=== PATIENT | female | born 1955 | race Caucasian/White ===

== ENCOUNTER 2017-04-21 05:22 | Emergency (ER) | payer MEDICARE, SELFPAY ==
[2017-04-21 05:26] VITALS: BP 152/65; PULSE 80; RESP 20; TEMP 36.6; O2SAT 98; BMI 41.6
--- NOTE | 2017-04-21 05:32 | RAD_ITS ---
STUDY: X-RAY CHEST REASON FOR EXAM: Female, 61 years old. Status post fall one week ago. Pain down left arm. Rib pain. TECHNIQUE: Frontal and lateral views of the chest. COMPARISON: 01/25/2017. FINDINGS: The lungs are clear and expanded. There is no demonstrated pleural abnormality. Normal size heart. Normal mediastinum and alvina. Normal visualized pulmonary arteries. Normal visualized aortic arch and descending thoracic aorta. Normal visualized thoracic spine. Normal visualized ribs, clavicles, and shoulders. There is no demonstrated abnormality of the visualized soft tissue structures of the upper abdomen. RAD/Chest PA and Lateral IMPRESSION: Normal x-ray examination of the chest. Electronically Signed: Gaurav Gutierrez MD at 6:56 EST , Service support ,
--- NOTE | 2017-04-21 05:32 | ED.VISSUMM ---
- ER Visit Summary Date of Service: 04/21/17 Chief Complaint: [] Fall with injury to left rib cage History of Present Illness: The patient is a 61 F patient had a fall a week ago and she slipped and injured her left upper ribs. No significant pain in her shoulder joint itself. It hurts to move and take a deep breath. She has been using Tylenol intermittently but has a history of a liver transplant. She comes in for further evaluation of her ribs. No shortness of breath currently. Physical Examination: [] Vital signs reviewed General: Well-nourished well-developed Head: Normocephalic atraumatic Eyes: Pupils equal round and reactive to light extraocular movements intact ENT: TMs clear no hemotympanum no trauma Neck: Nontender full range of motion Cardiovascular: Regular rate rhythm no murmurs normal S1-S2 Respiratory: No distress clear to auscultation bilaterally chest tender left anterior rib cage without swelling or deformity. No bony step-off. This is just under the breast region. Abdomen: Soft nontender nondistended normal bowel sounds no masses Back: Nontender no CVA tenderness Extremities: Nontender active range of motion ?4 extremities no trauma Skin: Normal color no trauma Neuro alert oriented cranial nerves II through XII intact normal strength sensation reflexes Test Results: [] Emergency Department Course and Treatment: [] Patient given [place] tablet. Chest x-ray obtained to rule out pneumothorax and fracture. Evidence of pneumothorax and fracture noted. This time I think the patient bruised her ribs. She will be given a short course of pain medicine and will follow-up as an outpatient. Treatment Plan: [] Disposition: [] Impression: [] Left-sided rib contusions status post fall This note was generated with [employer]String dictation software. It may contain incorrect words, spelling, and punctuation that were not noted in review of the chart prior to signing ED Disposition - Plan for ED Patient: Chief Complaint: Other, Pain/Inj Referrals: Velia Archuleta MD [Primary Care Provider] -
--- NOTE | 2017-04-21 05:35 | ED.DCSUM_ITS ---
- ER Visit Summary Date of Service: 04/21/17 Chief Complaint: [] Fall with injury to left rib cage History of Present Illness: The patient is a 61 F patient had a fall a week ago and she slipped and injured her left upper ribs. No significant pain in her shoulder joint itself. It hurts to move and take a deep breath. She has been using Tylenol intermittently but has a history of a liver transplant. She comes in for further evaluation of her ribs. No shortness of breath currently. Physical Examination: [] Vital signs reviewed General: Well-nourished well-developed Head: Normocephalic atraumatic Eyes: Pupils equal round and reactive to light extraocular movements intact ENT: TMs clear no hemotympanum no trauma Neck: Nontender full range of motion Cardiovascular: Regular rate rhythm no murmurs normal S1-S2 Respiratory: No distress clear to auscultation bilaterally chest tender left anterior rib cage without swelling or deformity. No bony step-off. This is just under the breast region. Abdomen: Soft nontender nondistended normal bowel sounds no masses Back: Nontender no CVA tenderness Extremities: Nontender active range of motion ?4 extremities no trauma Skin: Normal color no trauma Neuro alert oriented cranial nerves II through XII intact normal strength sensation reflexes Test Results: [] Emergency Department Course and Treatment: [] Patient given [place] tablet. Chest x-ray obtained to rule out pneumothorax and fracture. Evidence of pneumothorax and fracture noted. This time I think the patient bruised her ribs. She will be given a short course of pain medicine and will follow-up as an outpatient. Treatment Plan: [] Disposition: [] Impression: [] Left-sided rib contusions status post fall This note was generated with [employer] dictation software. It may contain incorrect words, spelling, and punctuation that were not noted in review of the chart prior to signing ED Disposition - Plan for ED Patient: Chief Complaint: Other, Pain/Inj Referrals: Velia Archuleta MD [Primary Care Provider] -
[2017-04-21] MEDS: HYDROcodone Bitartrate/Apap 5/325 Tablet PO (05:38)
--- NOTE | 2017-04-21 06:00 | ED.DEP ---
ED Disposition - Plan for ED Patient: Disposition: Home or Assisted Living Chief Complaint: Other, Pain/Inj Instructions: ED Contusion Rib Prescriptions: Hydrocodone Bitart/Apap 5-325 [[place] 5/325] 1 - 2 tab PO Q4H PRN PRN 2 Days #12 tab PRN Reason: Pain Referrals: Velia Archuleta MD [Primary Care Provider] -
--- NOTE | 2017-04-21 06:04 | DCINST.ED_ITS ---
ED Disposition - Plan for ED Patient: Disposition: Home or Assisted Living Chief Complaint: Other, Pain/Inj Instructions: ED Contusion Rib Prescriptions: Hydrocodone Bitart/Apap 5-325 [[place] 5/325] 1 - 2 tab PO Q4H PRN PRN 2 Days #12 tab PRN Reason: Pain Referrals: Velia Archuleta MD [Primary Care Provider] -
[2017-04-21 06:41] VITALS: RESP 18
== END 2017-04-21 06:42 | disposition home or self-care (01) ==
PROVIDERS: Emergency Provider Emergency Medicine; Family Provider Internal Medicine; PCP Internal Medicine
DX: S20.212A Contusion of left front wall of thorax, initial encounter (principal); W01.0XXA Fall on same level from slipping, tripping and stumbling without subsequent striking against object, initial encounter; Y93.9 Activity, unspecified; Y92.9 Unspecified place or not applicable; Y99.9 Unspecified external cause status; K75.81 Nonalcoholic steatohepatitis (NASH); E11.22 Type 2 diabetes mellitus with diabetic chronic kidney disease; N18.9 Chronic kidney disease, unspecified; I50.9 Heart failure, unspecified; D64.9 Anemia, unspecified; E66.9 Obesity, unspecified; Z79.4 Long term (current) use of insulin; Z79.899 Other long term (current) drug therapy; Z94.4 Liver transplant status
CPT/HCPCS: 71046; 99283

== ENCOUNTER → 2017-09-13 08:20 | Outpatient (CLI) | payer MEDICARE, SELFPAY ==
--- NOTE | 2017-09-13 08:22 | RAD_ITS ---
STUDY: X-RAY - ESOPHAGUS (BARIUM SWALLOW) WITH FLUOROSCOPY REASON FOR EXAM: Female, 62 years old. Dysphagia for fluid and pills. TECHNIQUE: 15 view(s) of the esophagus were obtained following swallowing of barium. FLUOROSCOPY TIME (if supplied): (0:18) minutes/seconds COMPARISON: None. FINDINGS: There is no demonstrated esophageal foreign body. There is no demonstrated stricture or mucosal abnormality. Normal gastroesophageal junction, without a demonstrated hiatal hernia. The patient ingested a 12 mm tablet of barium without any difficulty. Normal visualized aortic arch and descending thoracic aorta. Normal visualized pulmonary parenchyma. Normal visualized osseous structures of the thorax. RAD/Esophagus Only IMPRESSION: Normal plain film x-ray examination (barium swallow) of the esophagus. Electronically Signed: Naren Boston MD at 9:40 EDT Tel [phone], Service support ,
== END ==
PROVIDERS: Family Provider Internal Medicine; PCP Internal Medicine; Visit Provider Internal Medicine Gastroenterology
DX: R13.10 Dysphagia, unspecified (principal)
CPT/HCPCS: 74220

== ENCOUNTER 2018-01-15 19:39 | Emergency (ER) | payer MEDICARE, SELFPAY ==
[2018-01-15 19:40] VITALS: BP 163/69; PULSE 72; RESP 16; TEMP 36.1; BMI 41.6
[2018-01-15] MEDS: Morphine 4 MG/ML Syringe 8 MG SC (20:07)
--- NOTE | 2018-01-15 20:10 | RAD_ITS ---
STUDY: X-RAY - LUMBAR SPINE REASON FOR EXAM: Female, 62 years old. Pain TECHNIQUE: 3 view(s) of the lumbar spine were obtained. COMPARISON: None FINDINGS: Normal lumbar lordosis. There is a mild levoscoliosis. There is a normal alignment of the vertebrae. Normal vertebral bodies. Mild spurring at the endplates. Slightly narrowed L3-4 disc space. The soft tissue structures are unremarkable. There are surgical clips in the upper abdomen and pelvis. RAD/Lumbar Spine 2 or 3 Views IMPRESSION: Mild degenerative changes and levoscoliosis of the lumbar spine. Electronically Signed: Glen Cantu DO at 20:38 EST Tel [phone], Service support ,
--- NOTE | 2018-01-15 21:13 | ED.VISSUMM ---
- ER Visit Summary Date of Service: 01/15/18 Chief Complaint: Back pain History of Present Illness: The patient is a 62 F presenting for evaluation secondary to back pain. Patient reports that at about 630 tonight she had an onset of back pain. She reports that this is in her left lower back and seems to radiate down her leg to the level of about the thigh and the knee. She denies any numbness or weakness associated with this. Patient states that it is worse with movement she has been unable to get any sort of comfort by changing positions. Patient feels that she has a knot in the muscles in her back. 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 Patient does have a history of a liver transplant, and states that the medication she can take for pain are somewhat limited. Physical Examination: Vitals: Within normal limits General: Well-nourished well-developed no acute distress Head: Normocephalic atraumatic ENT: Moist mucous membranes Neck: Supple no JVD Cardiovascular: Heart regular rate and rhythm no murmurs Respiratory: Respirations nondistressed, lung sounds clear to auscultation bilaterally Abdominal: Soft, nontender, nondistended, normal bowel sounds, no evidence of abdominal masses or pulsatile mass Back: Normal to inspection, no midline tenderness to palpation, straight leg raise negative bilaterally, left paraspinal tenderness to palpation Extremities: Nontender, nonedematous, 2+ radial and PT pulses bilaterally symmetric Skin: Normal color no rash Neuro: 5/5 strength hip flexion, knee flexion, knee extension, dorsiflexion, plantarflexion, EHL. Sensation intact over all dermatomes of the lower extremities bilaterally, 2+ patellar and Achilles reflexes bilaterally symmetric, negative clonus bilaterally Test Results: Lumbar x-ray found to be negative for acute process but shows degenerative disease Emergency Department Course and Treatment: Patient presented secondary to back pain. She had had any recent imaging, so an x-ray was obtained was negative. I reviewed patient's records, she has no history of abdominal aortic aneurysm I do not believe that CT imaging is indicated. Patient was given a dose of morphine in the emergency department she did have improvement. Patient has multiple medication sensitivities secondary to her liver transplants, so will place the patient on a course of oxycodone for treatment of pain. She was recommended on stretching exercises ambulation and follow-up with primary care. Disposition: Discharge Impression: 1. Lumbar radiculopathy This note was generated with [employer] dictation software. It may contain incorrect words, spelling, and punctuation that were not noted in review of the chart prior to signing ED Disposition - Plan for ED Patient: Disposition: Home or Assisted Living Chief Complaint: Back Diagnosis: Lumbar radiculopathy, acute Instructions: ED Sciatica Prescriptions: Oxycodone [Oxyir] 5 mg PO Q6H PRN PRN 3 Days #12 tab PRN Reason: Pain Referrals: Velia Archuleta MD [Primary Care Provider] - 3-5 Days
[2018-01-15] MEDS: oxyCODONE 5 MG Tablet PO (21:48)
[2018-01-15 21:50] VITALS: BP 166/71; PULSE 71; RESP 16; O2SAT 95
== END 2018-01-15 21:51 | disposition home or self-care (01) ==
PROVIDERS: Emergency Provider Emergency Medicine; Family Provider Internal Medicine; PCP Internal Medicine
DX: M54.17 Radiculopathy, lumbosacral region (principal); K90.0 Celiac disease; R15.9 Full incontinence of feces; E66.9 Obesity, unspecified; Z79.899 Other long term (current) drug therapy; Z94.4 Liver transplant status
CPT/HCPCS: 72100; 96372; 99283

== ENCOUNTER 2018-05-29 08:45 | Emergency (ER) | payer MEDICARE, SELFPAY ==
[2018-05-29 08:46] VITALS: BP 141/67; PULSE 68; RESP 14; TEMP 36.1; O2SAT 97; BMI 42.7
--- NOTE | 2018-05-29 09:14 | ED.VISSUMM ---
- ER Visit Summary Date of Service: 05/29/18 Chief Complaint: Shingles History of Present Illness: The patient is a 62 F with history of liver transplant, splenectomy, and chronic immunosuppression. Patient noted a painful area of redness over her buttocks bilaterally 2 days ago. She was seen in urgent care yesterday and they thought it might be shingles. She was given a topical steroid cream and told it worsen to go the emergency room. The patient states the redness is now moved up her back and remains bilaterally. There are no blisters or open lesions. Her temperature last night was 99.9. Physical Examination: Blood pressure is 141/67, temperature 96.9 TA, 98.2 oral. Heart rate is 68, respiratory rate 14, pulse ox 97% on room air. Head neck examination is unremarkable. Heart is regular rate and rhythm without murmur. Lung sounds are clear. Abdomen is soft and nontender. Back examination was erythema and warmth over the bilateral flanks. There are no blisters or open lesions. Test Results: CBC is normal. Hemoglobin is 9.3 and platelet count is 112,000. Chemistry studies reveal BUN 57 and a creatinine 2.39. This appears consistent with prior values. Blood cultures were obtained. Emergency Department Course and Treatment: Patient was given dose of vancomycin IV. On repeat evaluation patient is resting comfortably. Erythema has not spread any further. I will speak with the patient's primary care physician to notify them of the current presentation. Patient has an appointment in the office tomorrow afternoon. Patient be discharged with doxycycline. Treatment Plan: [] Disposition: Discharge Impression: Cellulitis with history of immunosuppression This note was generated with [employer] dictation software. It may contain incorrect words, spelling, and punctuation that were not noted in review of the chart prior to signing ED Disposition - Plan for ED Patient: Referrals: Velia Archuleta MD [Primary Care Provider] -
[2018-05-29 09:38] LABS: Absolute Lymphocyte Count 0.48 X10^3/ul (0.83-4.51); Absolute Neutrophil Count 3.5 X10^3/uL (2.0-7.7); Basophil# 0.01 X10^3/uL; Basophil% 0.2 % (0-1); Eosinophils% 2.2 % (0-5); Hemoglobin 9.3 g/dl (12.0-15.0); Lymphocyte # 0.48 X10^3/ul (4.0); Lymphocyte % 10.7 % (19-41); Mean Corpuscular Hgb 24.5 pg (27.0-32.0); Mean Corpuscular Volume 81.8 fL (81-99); Mean Platelet Vol. 9.9 fl (6.2-12.0); Monocyte# 0.38 X10^3/uL; Monocyte% 8.5 % (0-10); Neutrophil # 3.47 X10^3/uL (2.7-7.7); Neutrophil % 77.7 % (47-70); Platelet Count 112 K/mm3 (150-450); RBC Distribution Width CV 17.5 % (11.6-14.6); RBC Distribution Width SD 50.9 fl (35.1-43.9); Red Blood Count 3.79 M/mm3 (4.2-5.4); White Blood Count 4.5 K/mm3 (4.4-11.0)
[2018-05-29 09:39] LABS: Differential Indicated SCAN CRITERIA MET; POSITIVE COUNT NO; POSITIVE DIFFERENTIAL YES; POSITIVE MORPHOLOGY NO
[2018-05-29 09:47] LABS: Anion Gap 6 (5-15); BUN 57 mg/dL (7-18); BUN/Creat Ratio 23.8 RATIO (10-20); Calcium,Total 8.2 mg/dL (8.5-10.1); Chloride 106 mmol/L (98-107); Creatinine, Serum 2.39 mg/dL (0.55-1.02); EST Glomerular Filtration Rate 22 mL/min (>60); Est Glom Filt Rate - Afr Amer 27 mL/min (>60); Estimated Creatinine Clearance 22.52 ml/min; Glucose 94 mg/dL (74-106); Potassium 4.3 mmol/L (3.5-5.1); Sodium Level 135 mmol/L (136-145)
[2018-05-29] MEDS: 0.9% Normal Saline 1,000 ML 150 ML IV (09:51)
[2018-05-29] MEDS: Insulin Lispro 100 UNIT/ML INSULN.PEN SC (10:59)
--- NOTE | 2018-05-29 11:50 | ED.DEP ---
ED Disposition - Plan for ED Patient: Disposition: Home or Assisted Living Instructions: ED Infec Skin Cellulitis Prescriptions: Doxycycline 100 mg PO BID #20 capsule Referrals: Velia Archuleta MD [Primary Care Provider] - Keep Patricia appointment
[2018-05-29 12:27] VITALS: BP 132/68; PULSE 74; RESP 18; O2SAT 94
[2018-05-29 12:28] VITALS: BP 132/68; PULSE 74; RESP 18; O2SAT 94
== END 2018-05-29 12:29 | disposition home or self-care (01) ==
PROVIDERS: Emergency Provider Emergency Medicine; Family Provider Internal Medicine; PCP Internal Medicine
DX: L03.312 Cellulitis of back [any part except buttock and flank] (principal); I13.0 Hypertensive heart and chronic kidney disease with heart failure and stage 1 through stage 4 chronic kidney disease, or unspecified chronic kidney disease; E11.22 Type 2 diabetes mellitus with diabetic chronic kidney disease; N18.9 Chronic kidney disease, unspecified; I50.9 Heart failure, unspecified; G47.33 Obstructive sleep apnea (adult) (pediatric); K21.9 Gastro-esophageal reflux disease without esophagitis; F32.9 Major depressive disorder, single episode, unspecified; F41.9 Anxiety disorder, unspecified; Z79.4 Long term (current) use of insulin; Z79.899 Other long term (current) drug therapy; Z94.4 Liver transplant status; Z90.81 Acquired absence of spleen
CPT/HCPCS: 80048; 85025; 87040; 96365; 96366; 99283; J7040

== ENCOUNTER 2018-06-27 09:16 | Emergency (ER) | payer MEDICARE, SELFPAY ==
[2018-06-27 09:18] VITALS: BP 147/69; PULSE 81; RESP 16; TEMP 36.3; O2SAT 95; BMI 43.5
--- NOTE | 2018-06-27 10:03 | ED.VIS.GEN ---
History of Present Illness Chief Complaint: Abd Pain Detail of Chief Complaint: Abdominal pain, nausea and vomiting Onset: Yesterday Context: Sudden Onset Timing: Intermittent Quality: 1 emesis yesterday and 1 episode today Location: Not pertinent Current Severity: Mild Maximum Severity: Moderate Worsened by: P.o. intake Relieved by: Nothing Associated Symptoms: Generalized abdominal pain with bloating Narrative: Patient is an elderly woman status post liver recipient 2008 who presents from urgent care because of nausea and vomiting. She was diagnosed with cellulitis lower back and treated with doxycycline. Patient reports one episode of nausea and vomiting yesterday and episode of vomiting today. She reports continuous nausea. She states she is able to take her medications including her immunosuppressive meds. She denies headache, visual, ocular auditory symptoms. She denies cardiac or respiratory symptoms. She does report abdominal fullness/bloating with nausea. She is status post cholecystectomy, hysterectomy and appendectomy. She denies dysuria, frequency, urgency or hematuria. She does report decreased urine output and has stage III renal disease. Prior similar symptoms: No Recent Illness/Hospitalization: Yes - Past Medical History (1) Acute kidney injury superimposed on chronic kidney disease Status: Acute (2) Cellulitis Status: Acute (3) Diastolic CHF, acute Status: Acute (4) Immunosuppressive-induced white blood cell (WBC) disorder Status: Acute (5) Anemia in chronic kidney disease Status: Chronic (6) Bilateral leg edema Status: Chronic (7) CKD (chronic kidney disease), stage III Status: Chronic (8) Diabetes mellitus type 2 in obese Status: Chronic (9) History of liver transplant Status: Chronic Past Medical History - Allergies and Home Meds Allergies/Adverse Reactions: Allergies amlodipine [From Norvasc] Adverse Reaction (Severe, Verified 06/27/18 09:17) Hives ampicillin sodium [From Unasyn] Adverse Reaction (Severe, Verified 06/27/18 09:17) Hives buspirone HCl [From BuSpar] Adverse Reaction (Severe, Verified 06/27/18 09:17) Hives lisinopril Adverse Reaction (Severe, Verified 06/27/18 09:17) Swelling naproxen Adverse Reaction (Severe, Verified 06/27/18 09:17) Hives niacin [From Niaspan Extended-Release] Adverse Reaction (Severe, Verified 06/27/18 09:17) Hives omeprazole Adverse Reaction (Severe, Verified 06/27/18 09:17) Other stage 3 kidney failure UNABLE TO TAKE DUE TO TRANSPLALNT sulbactam sodium [From Unasyn] Adverse Reaction (Severe, Verified 06/27/18 09:17) Hives Sulfa (Sulfonamide Antibiotics) Adverse Reaction (Severe, Verified 06/27/18 09:17) Hives DURACEF Adverse Reaction (Severe, Uncoded 06/27/18 09:17) Hives Primary Care Physician: Velia Archuleta MD [Primary Care Provider] - Prior records reviewed: Yes Surgical History: appendectomy, cholecystectomy, hysterectomy, - - Liver transplant, splenectomy, hysterectomy, left knee surgery, removal of left ovary, total mouth extraction Lives: Spouse/ Significant Other Smoking Status: Never smoker Alcohol: None Drugs: None - Family History Maternal Family History: Family History (Last Reviewed 11/19/17 @ 13:38 by Roxie Read) Mother Diabetes Anemia Father Hypertension LUNG/RESPIRATORY DISEASE Family History: Reports: Diabetes, Heart Disease Paternal Family History: Family History (Last Reviewed 11/19/17 @ 13:38 by Roxie Read) Mother Diabetes Anemia Father Hypertension LUNG/RESPIRATORY DISEASE Family History: Reports: Cancer, Heart Disease Sibling Family History: Family History (Last Reviewed 11/19/17 @ 13:38 by Roxie Read) Mother Diabetes Anemia Father Hypertension LUNG/RESPIRATORY DISEASE Family History: Reports: - - Cirrhosis Review of Systems General: Reports: Malaise. Denies: Chills, Fever, Subjective, Sweats, Weight loss, - Eyes: Denies: Visual changes - bilaterally, Blurred Vision - bilaterally, Diplopia ENT: Denies: Bilateral ear pain, Rhinorrhea, Sore throat Cardiovascular: Denies: Chest pain, Palpitations, Heart racing Respiratory: Denies: Dyspnea, Cough, Dyspnea on exertion, Orthopnea, Paroxysmal nocturnal dyspnea Gastrointestinal: Reports: Abdominal pain, Nausea, Vomiting. Denies: Diarrhea, Constipation, Melena, Hematochezia Genitourinary: Reports: - - Patient reports decreased urine output.. Denies: Dysuria, Hematuria, Frequency Musculoskeletal: Reports: Back pain - History of chronic back pain. Denies: Myalgias, Arthralgias, Neck pain Skin: Reports: Rash - Cellulitis lower back Neurological: Reports: Weakness. Denies: Headache, Parasthesia Endocrine: Denies: Polyuria, Polydipsia Hematologic: Denies: Easy bruising, Easy bleeding Physical Exam Vital Signs/Narrative: Vital Signs Temp Pulse Resp BP Pulse Ox 06/27/18 09:18 97.4 F L 81 16 147/69 H 95 Inital Vital Signs reviewed: Yes General: Well nourished, Well developed, Obese, No Acute Distress Head: Normocephalic, Atraumatic Eyes: Perrl, EOMI, Pale conjunctiva. Negative for: Scleral icterus ENT: No rhinorrhea, TM's clear, Dry mucous membranes. Negative for: Nasal congestion Neck: Supple, Nontender, No lymphadenopathy, No JVD Cardiovascular: Regular rate, Regular rhythm, No murmurs, Normal S1, Normal S2 Respiratory: No distress, CTA bilaterally, Chest nontender Abdomen: Soft, No masses, Tender, Hypoactive bowel sounds, - - Abdomen is tympanitic to percussion.. Negative for: Nontender, Nondistended, Normal bowel sounds, Guarding, Rebound tenderness, Hyperactive bowel sounds, Hepatomegaly, Splenomegaly, Mass, Pulsatile mass, Ventral hernia, Umbilical hernia Back: Nontender. Negative for: Normal Inspection, CVA tenderness - Area of cellulitis noted and minimal redness at this time. Extremities: Nontender, Edema Skin: Pallor, Rash. Negative for: Jaundice Neurological: Alert, Oriented x3, Cranial nerves II-XII grossly intact, Normal Strength, Normal Sensation Psychological: Normal affect, Normal Mood Diagnostic/Tx/Re-eval Chest X-Ray - ED: Read by ED Physician Three-view x-ray of the abdomen was obtained. Minimal amounts of gas pattern noted. Multiple surgical clips noted. There is evidence of scoliosis. No evidence of obstruction or ileus. Chest portion appears unremarkable. 06/27/18 10:20 XRAY Abdomen [Acute Abdomen Inc Chest] [RAD] Stat Laboratory Results 06/27/18 06/27/18 09:50 09:50 WBC 3.3 L RBC 3.73 L Hgb 8.9 L Hct 29.3 L MCV 78.6 L MCH 23.9 L MCHC 30.4 L RDW 18.0 H RDW Differential 51.7 H Plt Count 79 L MPV 9.8 Immature Gran % (Auto) 0.300 Neut % (Auto) 78.6 H Lymph % (Auto) 13.8 L Mcintosh % (Auto) 4.9 Eos % (Auto) 2.4 Baso % (Auto) 0.0 Absolute Neuts (auto) 2.6 Absolute Lymphs (auto) 0.45 L Total Counted Not Reportable Differential Comment COMMENT Diff Path Review May foll Sodium 137 Potassium 4.6 Chloride 105 Carbon Dioxide 25.0 Anion Gap 7 BUN 53 H Creatinine 2.16 H Estim Creat Clear Calc 24.61 Est GFR (MDRD) Af Amer 30 L Est GFR (MDRD) Non-Af 25 L BUN/Creatinine Ratio 24.5 H Glucose 283 H Calcium 8.2 L Total Bilirubin 0.60 AST 13 L ALT 18 Alkaline Phosphatase 51 Total Protein 6.3 L Albumin 2.9 L Globulin 3.4 Albumin/Globulin Ratio 0.9 - Medical Decision Making With history of nausea vomiting status post liver recipient on immune suppressive meds CBC was obtained to assess H&H as well as white count. Basic metabolic panel to assess electrolytes and renal function since she has history of stage III renal disease. She did receive a liter of fluid. She informed she has no history of congestive heart failure. Review of prior records reveals she has diastolic congestive heart failure. Clinically she is dehydrated. Patient's work-up is unremarkable. Will have patient drink fluids. If passes p.o. challenge will discharge to home. Patient was reassessed. She states slight improvement. She was given p.o. Bentyl after reviewing her x-rays. Patient was reassessed at 1215. She feels markedly better. Will discharge with prescription for Bentyl. ED Disposition - Plan for ED Patient: Disposition: Home or Assisted Living Diagnosis: Nausea and vomiting, Abdominal pain, CKD (chronic kidney disease), stage III, Mild dehydration, Anemia in chronic kidney disease Instructions: ED Nausea Vomiting Prescriptions: Dicyclomine HCl [Bentyl] 20 mg PO TIDAC #20 capsule Metoclopramide [Reglan] 10 mg PO 4X/DAY PRN #20 tablet PRN Reason: Headache Referrals: Velia Archuleta MD [Primary Care Provider] - 1-2 Days if not improving Additional Instructions: Your prescription was electronically transmitted to [email or web address] your designated pharmacy of choice.
[2018-06-27] MEDS: 0.9% Normal Saline 1,000 ML 1000 ML IV (10:06)
[2018-06-27] MEDS: Metoclopramide 10 MG/2 ML Vial IV (10:06)
[2018-06-27 10:07] LABS: Absolute Lymphocyte Count 0.45 X10^3/ul (0.83-4.51); Absolute Neutrophil Count 2.6 X10^3/uL (2.0-7.7); Eosinophil# 0.08 X10^3/uL; Eosinophils% 2.4 % (0-5); Hematocrit 29.3 % (37-47); Hemoglobin 8.9 g/dl (12.0-15.0); Lymphocyte # 0.45 X10^3/ul (4.0); Lymphocyte % 13.8 % (19-41); Mean Corp Hgb Conc 30.4 g/gl (32-36); Mean Corpuscular Hgb 23.9 pg (27.0-32.0); Mean Corpuscular Volume 78.6 fL (81-99); Mean Platelet Vol. 9.8 fl (6.2-12.0); Monocyte# 0.16 X10^3/uL; Monocyte% 4.9 % (0-10); Neutrophil # 2.57 X10^3/uL (2.7-7.7); Neutrophil % 78.6 % (47-70); Platelet Count 79 K/mm3 (150-450); RBC Distribution Width SD 51.7 fl (35.1-43.9); Red Blood Count 3.73 M/mm3 (4.2-5.4); White Blood Count 3.3 K/mm3 (4.4-11.0)
[2018-06-27 10:08] LABS: Differential Indicated SCAN CRITERIA MET; POSITIVE COUNT NO; POSITIVE DIFFERENTIAL YES; POSITIVE MORPHOLOGY NO
[2018-06-27 10:13] LABS: ALB/GLOB Ratio 0.9 RATIO (0.9-2.4); AST(SGOT) 13 U/L (15-37); Alanine Aminotransfer ALT/SGPT 18 U/L (13-56); Albumin, Serum 2.9 g/dL (3.2-5.0); Alkaline Phosphatase 51 U/L (45-117); Anion Gap 7 (5-15); BUN 53 mg/dL (7-18); BUN/Creat Ratio 24.5 RATIO (10-20); Calcium,Total 8.2 mg/dL (8.5-10.1); Chloride 105 mmol/L (98-107); Creatinine, Serum 2.16 mg/dL (0.55-1.02); EST Glomerular Filtration Rate 25 mL/min (>60); Est Glom Filt Rate - Afr Amer 30 mL/min (>60); Estimated Creatinine Clearance 24.61 ml/min; Globulin 3.4 g/dL (2.2-4.2); Glucose 283 mg/dL (74-106); Potassium 4.6 mmol/L (3.5-5.1); Protein, Total 6.3 g/dL (6.4-8.2); Sodium Level 137 mmol/L (136-145)
--- NOTE | 2018-06-27 10:20 | RAD_ITS ---
STUDY: X-RAY - ACUTE ABDOMINAL SERIES REASON FOR EXAM: Female, 63 years old. Abdominal distention, nausea TECHNIQUE: Single view of the chest. Supine, and erect view(s) of the abdomen were obtained. 6 total views obtained COMPARISON: 04/21/17 FINDINGS: There are interstitial fibrotic changes of the lungs. Normal size heart. Normal mediastinum and alvina. Normal visualized pulmonary arteries. Normal visualized aortic arch and descending thoracic aorta. There is a non-specific bowel gas pattern. The soft tissue structures of the abdomen and pelvis are unremarkable. There are diffuse degenerative changes of the visualized lumbar spine. RAD/Acute Abdomen Inc Chest IMPRESSION: No acute abdominal, pelvic, or pulmonary process Electronically Signed: Steven Perez MD at 11:39 EDT , Service support ,
[2018-06-27] MEDS: Dicyclomine 10 MG Capsule 20 MG PO (11:43)
[2018-06-27 12:33] VITALS: BP 161/73; PULSE 76; RESP 16; O2SAT 97
--- NOTE | 2018-06-27 12:33 | ED.RN ---
IV DC'ED, CATHETER INTACT, SMALL GAUZE DRESSING PLACED. DISCHARGE INSTRUCTIONS GIVEN TO AND REVIEWED WITH PATIENT, PATIENT DENIES QUESTIONS OR CONCERNS AND VOICES UNDERSTANDING OF DISCHARGE INSTRUCTIONS. PT AMBULATES OUT OF ROOM WITHOUT DIFFICULTY.
[2018-06-27 14:16] LABS: Pathologist Review Reviewed
== END 2018-06-27 12:34 | disposition home or self-care (01) ==
PROVIDERS: Emergency Provider Emergency Medicine; Family Provider Internal Medicine; PCP Internal Medicine
DX: R11.2 Nausea with vomiting, unspecified (principal); R10.84 Generalized abdominal pain; E11.22 Type 2 diabetes mellitus with diabetic chronic kidney disease; N18.3 Chronic kidney disease, stage 3 (moderate); I50.31 Acute diastolic (congestive) heart failure; E86.0 Dehydration; D63.1 Anemia in chronic kidney disease; L03.319 Cellulitis of trunk, unspecified; M54.9 Dorsalgia, unspecified; G89.29 Other chronic pain; Z79.4 Long term (current) use of insulin; Z79.899 Other long term (current) drug therapy; Z94.4 Liver transplant status; Z90.49 Acquired absence of other specified parts of digestive tract; Z90.710 Acquired absence of both cervix and uterus; Z90.81 Acquired absence of spleen
CPT/HCPCS: 74022; 80053; 85025; 96361; 96374; 99284; J7030; A4216

== ENCOUNTER 2018-07-04 10:54 | Inpatient (IN) | payer MEDICARE, SELFPAY ==
[2018-07-04 10:59] VITALS: BP 154/78; PULSE 77; RESP 18; TEMP 36.7; O2SAT 98; BMI 42.5
[2018-07-04 11:06] VITALS: TEMP 36.7
--- NOTE | 2018-07-04 11:14 | ED.DCSUM_ITS ---
- ER Visit Summary Date of Service: 07/04/18 Chief Complaint: Cellulitis History of Present Illness: The patient is a 63 F who presents with cellulitis. She was initially treated for cellulitis of her lower back and buttocks about a month ago. She was on doxycycline. She transiently improved but it returned. She has been on doxycycline again. She was not improving as expected and had amoxicillin added on. She has been seeing the nurse practitioner at her primary care physician's office. She has had some improvement on the back however it is now coming around to the right side in the panniculus. Therefore she was sent here for further evaluation and treatment. Patient is immunosuppressed. She has a history of splenectomy as well as a liver transplant due to HOFFMAN. Physical Examination: Afebrile vitals unremarkable No distress Moist mucous membranes Heart regular rate and rhythm Lungs are clear Abdomen soft nontender There is erythema consistent with cellulitis along the right flank and panniculus Test Results: Labs notable for white count 4.0, hemoglobin 9.2, platelets 96. BMP notable for BUN 55, creatinine 2.23. Emergency Department Course and Treatment: Labs as above near baseline. Patient was treated with IV vancomycin. Given failure of outpatient treatment she was discussed with the hospitalist and admitted. Treatment Plan: [] Disposition: Admit Impression: Cellulitis This note was generated with [employer] dictation software. It may contain incorrect words, spelling, and punctuation that were not noted in review of the chart prior to signing ED Disposition - Plan for ED Patient: Referrals: Velia Archuleta MD [Primary Care Provider] -
[2018-07-04 11:47] LABS: Anion Gap 6 (5-15); BUN 55 mg/dL (7-18); BUN/Creat Ratio 24.7 RATIO (10-20); Calcium,Total 8.4 mg/dL (8.5-10.1); Chloride 106 mmol/L (98-107); Creatinine, Serum 2.23 mg/dL (0.55-1.02); EST Glomerular Filtration Rate 24 mL/min (>60); Est Glom Filt Rate - Afr Amer 29 mL/min (>60); Estimated Creatinine Clearance 23.84 ml/min; Glucose 139 mg/dL (74-106); Potassium 4.7 mmol/L (3.5-5.1); Sodium Level 136 mmol/L (136-145)
[2018-07-04 11:48] LABS: Absolute Lymphocyte Count 0.49 X10^3/ul (0.83-4.51); Eosinophil# 0.12 X10^3/uL; Hematocrit 30.5 % (37-47); Hemoglobin 9.2 g/dl (12.0-15.0); Lymphocyte # 0.49 X10^3/ul (4.0); Lymphocyte % 12.2 % (19-41); Mean Corp Hgb Conc 30.2 g/gl (32-36); Mean Corpuscular Hgb 23.2 pg (27.0-32.0); Mean Corpuscular Volume 76.8 fL (81-99); Mean Platelet Vol. 9.6 fl (6.2-12.0); Monocyte# 0.38 X10^3/uL; Monocyte% 9.5 % (0-10); Neutrophil % 74.8 % (47-70); Platelet Count 96 K/mm3 (150-450); RBC Distribution Width CV 17.8 % (11.6-14.6); RBC Distribution Width SD 50.9 fl (35.1-43.9); Red Blood Count 3.97 M/mm3 (4.2-5.4)
[2018-07-04 11:49] LABS: Differential Indicated SCAN CRITERIA MET; POSITIVE COUNT NO; POSITIVE DIFFERENTIAL YES; POSITIVE MORPHOLOGY NO
--- NOTE | 2018-07-04 12:57 | CASEMGMT ---
RN CM Assessment Introduced role of RN CM to patient.? Patient is alert, oriented and able?to participate in RN CM Assessment. ?Care providers, pharmacy, and demographics verified. Presentation: Presents with Cellulitis, initially Tx for Cellulitis of her lower back and buttocks approx 1 month ago. Re-Admit: No, ER 06/27/18 for N/V Barriers/Issues: None PCP: Velia Archuleta Specialists: Hem- Dr Barger, Nephro- Dr Strickland, Trans[facility] Preferred Pharmacy: [facility] Insurance: [employer] Rx Benefit:?Yes LNOK: Carlos Guerrier LW/HPOA: Yes, patient aware not on file and to bring when she can. States HPOA is Carlos Guerrier Living Arrangements:? Lives with her in a upper level apartment, states 14 steps to get to apartment. ADL?s: Independent with ambulation and ADL's Transportation: Patient drives, will Drive on Transport. DME: CPAP- does not wear since she had [place] Palsy, states makes her feel Claustrophobic. Nebulizer, Glucometer, Shower Chair- states that she needs a new one since it is getting old, aware not a covered DME item and self purchase. Rollator, Electric WC. HHC: Past- states thinks with Agency- [facility] (states did not care for this Agency). If HH needed, no preferred Agency. SNF: None Goal: Home, does not anticipate will need anything, states that her can help if needed. DC PLAN: Home with no anticipated needs identified at this time. Herbert Gaona RNCM
[2018-07-04 13:40] VITALS: BMI 42.7; BMI 42.8
[2018-07-04 13:42] VITALS: BP 153/76; PULSE 65; RESP 18; TEMP 36.9; O2SAT 97
[2018-07-04 14:16] LABS: Bedside Glucose 109 mg/dL (70-110)
--- NOTE | 2018-07-04 14:36 | CASEMGMT ---
Social Work Note Per RN ARIAS Gaona note, pt is aware advanced directives are not on file and is to bring in copies. Christine Gonzalez SPRINKLER INSTALLER, WILLOW MACHINE OPERATOR
[2018-07-04] MEDS: Cefazolin 1 GM/50 ML BAG IV ×2 (16:50→22:55)
[2018-07-04 16:55] LABS: Bedside Glucose 135 mg/dL (70-110)
[2018-07-04] MEDS: Insulin Lispro 100 UNIT/ML INSULN.PEN 10 UNIT SC (17:13)
[2018-07-04] MEDS: Glucerna Shake 120 ML LIQUID PO (17:13)
[2018-07-04] MEDS: Furosemide 40 MG Tablet 60 MG PO (17:16)
--- NOTE | 2018-07-04 18:01 | PCM.HP.STD ---
Problem List (1) Cellulitis of right abdominal wall Status: Acute History of Present Illness Date of Admission: 07/04/18 Chief Complaint: Cellulitis of the right abdominal wall The patient is a 63 year old F who was seen in the emergency room today after being sent in by her PCP for evaluation of continued cellulitis which was unresponsive to antibiotic treatment. Patient had finished 8 days of doxycycline and yesterday amoxicillin was added to her antibiotic regimen, she continued to have redness and pain over her right lower abdominal area despite antibiotic treatment. Patient stated that the cellulitis started over her upper back and this has resolved since starting the antibiotics. Patient denies any fever or chills. 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 Patient had a liver transplant in 2008. Work-up in the emergency room included labs which showed white blood cell count of 4000, hemoglobin was 9.2, platelet count was 96,000, creatinine was 2.23, and BUN was 55. Patient was admitted for cellulitis to the right lower abdominal wall nonresponsive to outpatient therapy, she was given IV vancomycin in the ER, I have elected to place her on IV Ancef instead while in the hospital. Her Ancef dosage will be decreased due to her history of chronic kidney disease. 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) RLS (restless legs syndrome) (Chronic) Microcytic anemia (Chronic) Diabetes mellitus type 2 in obese (Chronic) S/P liver transplant (Chronic) uterine and cervical cancer (Chronic) Bilateral leg edema (Chronic) Immunocompromised patient (Chronic) Thrombocytopenia (Chronic) Anemia in chronic kidney disease (Chronic) 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) Pancytopenia (Chronic) Neutropenia (Chronic) Iron deficiency anemia (Chronic) CKD (chronic kidney disease), stage III (Chronic) Medical History: Medical History (Last Reviewed 11/19/17 @ 13:38 by Roxie Read) Chronic kidney disease, stage 3 N18.3 Diabetes E11.9 GERD (gastroesophageal reflux disease) K21.9 History of uterine cancer Z85.42 LIVER TRANSPLANT 2008 [facility] Sleep apnea G47.30 Hypertension I10 Allergies amlodipine [From Norvasc] Adverse Reaction (Severe, Verified 07/04/18 10:59) Hives ampicillin sodium [From Unasyn] Adverse Reaction (Severe, Verified 07/04/18 10:59) Hives buspirone HCl [From BuSpar] Adverse Reaction (Severe, Verified 07/04/18 10:59) Hives lisinopril Adverse Reaction (Severe, Verified 07/04/18 10:59) Swelling naproxen Adverse Reaction (Severe, Verified 07/04/18 10:59) Hives niacin [From Niaspan Extended-Release] Adverse Reaction (Severe, Verified 07/04/18 10:59) Hives omeprazole Adverse Reaction (Severe, Verified 07/04/18 10:59) Other stage 3 kidney failure UNABLE TO TAKE DUE TO TRANSPLALNT sulbactam sodium [From Unasyn] Adverse Reaction (Severe, Verified 07/04/18 10:59) Hives Sulfa (Sulfonamide Antibiotics) Adverse Reaction (Severe, Verified 07/04/18 10:59) Hives losartan Adverse Reaction (Verified 07/04/18 14:34) Swelling DURACEF Adverse Reaction (Severe, Uncoded 07/04/18 10:59) Hives Home Medications: Ambulatory Orders Medication Instructions Recorded Ascorbic Acid [Vitamin C] 1,000 mg PO DAILY 02/20/15 Cholecalciferol (VIT D3) [Vitamin 1,000 unit PO DAILY 02/20/15 D3] [place]-3 Fatty Acids/Fish Oil 2 each PO BID 02/20/15 [[place] 3 Fish Oil Softgel] Ropinirole HCl [Requip] 1 mg PO BID 02/20/15 Sertraline HCl [Zoloft] 50 mg PO DAILY 02/20/15 Tacrolimus Anhydrous [Prograf] 0.5 mg PO DAILY 03/18/16 Trazodone HCl 100 mg PO QHS 03/18/16 Furosemide 60 mg PO BID 06/19/16 Levothyroxine [Synthroid] 25 mcg PO DAILY 06/19/16 Ferrous Sulfate [Iron] 325 mg PO DAILY 07/19/16 Sirolimus 1 mg PO DAILY 08/01/16 Labetalol [Trandate] 600 mg PO BID 08/20/16 Atorvastatin Calcium [Lipitor] 10 mg PO QHS 10/19/16 Apremilast [Otezla] 30 mg PO BID 01/15/18 Cyanocobalamin (Vitamin B-12) 1,000 mcg PO DAILY 05/29/18 [Vitamin B-12] Doxycycline 100 mg PO BID #20 capsule 05/29/18 Insulin Aspart [Novolog Flexpen 0 units SC TID 05/29/18 ([facility])] Insulin Aspart [Novolog Flexpen 5 units SC BIDCM 05/29/18 ([facility])] Insulin Aspart [Novolog Flexpen 10 units SC DINNER 05/29/18 ([facility])] Insulin Glargine,Hum.rec.anlog 50 unit SQ BID 05/29/18 [Lantus Solostar] Surgical History: Surgical History (Last Reviewed 11/19/17 @ 13:38 by Roxie Read) History of cholecystectomy Z90.49 2009 History of left knee surgery Z98.890 History of left salpingo-oophorectomy Z90.79, Z90.721 1989 BENIGN TUMOR History of radical hysterectomy Z90.710 History of splenectomy Z90.81 2009 History of ventral hernia repair Z98.890, Z87.19 Surgical History: appendectomy, cholecystectomy, herniorrhaphy - Incisional hernia repair 2008, hysterectomy, - - Liver transplant, splenectomy, hysterectomy, left knee surgery, removal of left ovary, total mouth extraction Psychiatric History: No pertinent psych hx CAD MANAGER History: No pertinent CAD MANAGER history Lives: Spouse/ Significant Other Smoking Status: Never smoker Tobacco Use: Non-smoker Alcohol: None Drugs: None - *Family History Maternal Family History: Family History (Last Reviewed 11/19/17 @ 13:38 by Roxie Read) Mother Diabetes Anemia Father Hypertension LUNG/RESPIRATORY DISEASE History Items: Diabetes, Heart Disease Paternal Family History: Family History (Last Reviewed 11/19/17 @ 13:38 by Roxie Read) Mother Diabetes Anemia Father Hypertension LUNG/RESPIRATORY DISEASE History Items: Cancer, Heart Disease Sibling Family History: Family History (Last Reviewed 11/19/17 @ 13:38 by Roxie Read) Mother Diabetes Anemia Father Hypertension LUNG/RESPIRATORY DISEASE History Items: - - Cirrhosis Review of Systems Constitutional: Denies: Anorexia, Chills, Fever, Night Sweats, Malaise, Weakness, Weight Change, Fatigue Eyes: Denies: Blurred vision, Cataracts, Conjunctivae Inflammation, Double vision, Drainage HEENT: Denies: Difficulty Swallowing, Dysphasia, Ear Pain, Eye Pain, Hearing Changes, Nasal bleeding, Nasal Congestion, Post Nasal Drip Cardiovascular: Denies: Chest Pain, Claudication, Chest Pressure, Chest Tightness, Edema, Palpitations, Paroxysmal Noc. Dyspnea Respiratory: Denies: Cough, Hemoptysis, Pleuritic Pain, Shortness of Breath, Shortness of breath at rest, Shortness of breath upon exertion, Sputum production Gastrointestinal: Reports: - - Right lower abdominal wall tenderness. Denies: Abdominal Pain, Constipation, Diarrhea, Dyspepsia, Hematemesis, Hematochezia, Nausea, Melena, Vomiting Genitourinary: Denies: Dysuria, Frequency, Hematuria, Hesitancy, Urgency Gynecological: Denies: Breast symptoms Musculoskeletal: Denies: Back Pain, Foot Pain, Hand Pain, Joint Pain, Joint stiffness, Joint swelling, Joint Tenderness, Leg Pain Skin: Reports: Rash, - - Chronic psoriasis. Denies: Dryness, Pruritis Neurological: Denies: Blurred vision, Double vision, Change in Speech, Slurred speech, Difficulty swallowing, Focal weakness, Headaches, Incoordination, Numbness, Tingling Psychiatric: Denies: Anxiety, Depression, Homicidal Ideations, Suicidal Ideations Endocrine: Denies: Change in Body Habitus, Heat/ Cold Intolerance, Polydipsia, Polyuria Hematologic/ Lymphatic: Denies: Adenopathy, Anemia, Easy Bruising, Easy Bleeding, Petechiae, Purpura VTE Information - Inpt Only VTE Present on Admission: No VTE Mechan Device Prophylaxis: None VTE Pharm Prophylaxis ordered?: Yes Patient Problems: Active and Suspected Problems (Last Reviewed 11/19/17 @ 13:38 by Roxie Read) Cellulitis of right abdominal wall (Acute) - Physical Exam General: Alert, Oriented x3, Cooperative, No apparent distress, Well developed, Well nourished HEENT: Atraumatic, PERRLA, EOMI, Normocephalic Oral: Moist Mucosa Neck: Supple, No JVD, Negative Carotid Bruits, Trachea Midline, Thyroid Normal Size and Texture Lungs: Clear to auscultation, Normal air movement, No rhonchi, No wheeze, No rales Cardiovascular: Regular rate, Regular Rhythm, Normal S1, Normal S2, No murmurs, No Ectopic Activity, PMI Normal, No rub noted, No Gallop Abdomen: Bowel Sounds Present, Soft, Non Tender, Non-Distended, No hernias noted Extremities: No edema, Capillary Refill Less than 3 Seconds Skin: Rash Present - There is a reddened area present over the patient's right lower abdominal wall area, this area measures approximately 15 cm x 10 cm in diameter commissary is tender to palpation, - - There are scattered areas of skin excoriation present over the patient's right lateral abdominal area Musculoskeletal: No Tenderness to Palpation of Joints or Extremities, No Muscle Wasting Neurological: Cranial nerves II-XII grossly intact, Neuro grossly intact, Sensory exam intact to light touch and pain, Coordination normal Psych/Mental Status: Normal Affect, Appropriate, Alert and oriented to time, place, person, mood and affect Vital Signs Temp Pulse Resp BP Pulse Ox 98.4 F 65 18 153/76 H 97 07/04/18 13:42 07/04/18 13:42 07/04/18 13:42 07/04/18 13:42 07/04/18 13:42 Oxygen Delivery Method Room Air Weight: 116.6 kg Body Mass Index (BMI) 42.7 Finger Stick Blood Glucose 427 Laboratory Tests Past 24 Hrs 07/04/18 07/04/18 11:21 11:21 WBC 4.0 L RBC 3.97 L Hgb 9.2 L Hct 30.5 L MCV 76.8 L MCH 23.2 L MCHC 30.2 L RDW 17.8 H RDW Differential 50.9 H Plt Count 96 L MPV 9.6 Immature Gran % (Auto) 0.500 Neut % (Auto) 74.8 H Lymph % (Auto) 12.2 L [place] % (Auto) 9.5 Eos % (Auto) 3.0 Baso % (Auto) 0.0 Absolute Neuts (auto) 3.0 Absolute Lymphs (auto) 0.49 L Total Counted Not Reportable Differential Comment Sodium 136 Potassium 4.7 Chloride 106 Carbon Dioxide 24.0 Anion Gap 6 BUN 55 H Creatinine 2.23 H Estim Creat Clear Calc 23.84 Est GFR (MDRD) Af Amer 29 L Est GFR (MDRD) Non-Af 24 L BUN/Creatinine Ratio 24.7 H Glucose 139 H Calcium 8.4 L POC Glucose 07/04/18 07/04/18 16:44 14:09 POC Glucose 135 H 109 Assessment/Plan All Active Problems (Last Reviewed 11/19/17 @ 13:38 by Roxie Read) Severe sepsis (Resolved) Dehydration (Resolved) Acute kidney injury superimposed on chronic kidney disease (Resolved) Diastolic CHF, acute (Resolved) Hypomagnesemia (Resolved) Acute respiratory failure with hypoxia (Resolved) Pleural effusion (Resolved) Cellulitis (Resolved) Diabetic foot ulcer (Resolved) Foreign body in right foot with infection (Resolved) Right foot pain (Resolved) Cellulitis of right abdominal wall (Acute) HOFFMAN (nonalcoholic steatohepatitis) (Resolved) #1 right lower abdominal wall cellulitis-failed outpatient therapy, probably secondary to either staph or strep-patient will be admitted to [facility], I will use IV Ancef, CBC will be repeated tomorrow, BMP will be repeated tomorrow. Patient will remain on her home medications #2 chronic kidney disease stage IV-etiology unclear, labs will be monitored #3 chronic immunosuppressive usage secondary to past history of liver transplant due to HOFFMAN #4 morbid obesity #5 iron deficiency anemia-patient will be given IV Venofer during her hospital stay here, I talked with her oncologist briefly by phone today and he recommended 3 doses of IV Venofer over 3 days. #6 thrombocytopenia-etiology unclear, possibly due to immunosuppressants-monitor CBC #7 hypertension #8 chronic psoriasis #9 leukopenia-probably secondary to immunosuppressant drug usage #10 history of obstructive sleep apnea-noncompliant with CPAP, patient has CPAP machine at home but does not use it Code Visit Inpatient E&M: 43241 Init Hosp L3
--- NOTE | 2018-07-04 18:06 | HP.PCM_ITS ---
Problem List (1) Cellulitis of right abdominal wall Status: Acute History of Present Illness Date of Admission: 07/04/18 Chief Complaint: Cellulitis of the right abdominal wall The patient is a 63 year old F who was seen in the emergency room today after being sent in by her PCP for evaluation of continued cellulitis which was unresponsive to antibiotic treatment. Patient had finished 8 days of doxycycline and yesterday amoxicillin was added to her antibiotic regimen, she continued to have redness and pain over her right lower abdominal area despite antibiotic treatment. Patient stated that the cellulitis started over her upper back and this has resolved since starting the antibiotics. Patient denies any fever or chills. 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 Patient had a liver transplant in 2008. Work-up in the emergency room included labs which showed white blood cell count of 4000, hemoglobin was 9.2, platelet count was 96,000, creatinine was 2.23, and BUN was 55. Patient was admitted for cellulitis to the right lower abdominal wall nonresponsive to outpatient therapy, she was given IV vancomycin in the ER, I have elected to place her on IV Ancef instead while in the hospital. Her Ancef dosage will be decreased due to her history of chronic kidney disease. 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) RLS (restless legs syndrome) (Chronic) Microcytic anemia (Chronic) Diabetes mellitus type 2 in obese (Chronic) S/P liver transplant (Chronic) uterine and cervical cancer (Chronic) Bilateral leg edema (Chronic) Immunocompromised patient (Chronic) Thrombocytopenia (Chronic) Anemia in chronic kidney disease (Chronic) 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) Pancytopenia (Chronic) Neutropenia (Chronic) Iron deficiency anemia (Chronic) CKD (chronic kidney disease), stage III (Chronic) Medical History: Medical History (Last Reviewed 11/19/17 @ 13:38 by Roxie Read) Chronic kidney disease, stage 3 N18.3 Diabetes E11.9 GERD (gastroesophageal reflux disease) K21.9 History of uterine cancer Z85.42 LIVER TRANSPLANT 2008 [facility] Sleep apnea G47.30 Hypertension I10 Allergies amlodipine [From Norvasc] Adverse Reaction (Severe, Verified 07/04/18 10:59) Hives ampicillin sodium [From Unasyn] Adverse Reaction (Severe, Verified 07/04/18 10:59) Hives buspirone HCl [From BuSpar] Adverse Reaction (Severe, Verified 07/04/18 10:59) Hives lisinopril Adverse Reaction (Severe, Verified 07/04/18 10:59) Swelling naproxen Adverse Reaction (Severe, Verified 07/04/18 10:59) Hives niacin [From Niaspan Extended-Release] Adverse Reaction (Severe, Verified 07/04/18 10:59) Hives omeprazole Adverse Reaction (Severe, Verified 07/04/18 10:59) Other stage 3 kidney failure UNABLE TO TAKE DUE TO TRANSPLALNT sulbactam sodium [From Unasyn] Adverse Reaction (Severe, Verified 07/04/18 10:59) Hives Sulfa (Sulfonamide Antibiotics) Adverse Reaction (Severe, Verified 07/04/18 10:59) Hives losartan Adverse Reaction (Verified 07/04/18 14:34) Swelling DURACEF Adverse Reaction (Severe, Uncoded 07/04/18 10:59) Hives Home Medications: Ambulatory Orders Medication Instructions Recorded Ascorbic Acid [Vitamin C] 1,000 mg PO DAILY 02/20/15 Cholecalciferol (VIT D3) [Vitamin 1,000 unit PO DAILY 02/20/15 D3] [place]-3 Fatty Acids/Fish Oil 2 each PO BID 02/20/15 [[place] 3 Fish Oil Softgel] Ropinirole HCl [Requip] 1 mg PO BID 02/20/15 Sertraline HCl [Zoloft] 50 mg PO DAILY 02/20/15 Tacrolimus Anhydrous [Prograf] 0.5 mg PO DAILY 03/18/16 Trazodone HCl 100 mg PO QHS 03/18/16 Furosemide 60 mg PO BID 06/19/16 Levothyroxine [Synthroid] 25 mcg PO DAILY 06/19/16 Ferrous Sulfate [Iron] 325 mg PO DAILY 07/19/16 Sirolimus 1 mg PO DAILY 08/01/16 Labetalol [Trandate] 600 mg PO BID 08/20/16 Atorvastatin Calcium [Lipitor] 10 mg PO QHS 10/19/16 Apremilast [Otezla] 30 mg PO BID 01/15/18 Cyanocobalamin (Vitamin B-12) 1,000 mcg PO DAILY 05/29/18 [Vitamin B-12] Doxycycline 100 mg PO BID #20 capsule 05/29/18 Insulin Aspart [Novolog Flexpen 0 units SC TID 05/29/18 ([facility])] Insulin Aspart [Novolog Flexpen 5 units SC BIDCM 05/29/18 ([facility])] Insulin Aspart [Novolog Flexpen 10 units SC DINNER 05/29/18 ([facility])] Insulin Glargine,Hum.rec.anlog 50 unit SQ BID 05/29/18 [Lantus Solostar] Surgical History: Surgical History (Last Reviewed 11/19/17 @ 13:38 by Roxie Read) History of cholecystectomy Z90.49 2009 History of left knee surgery Z98.890 History of left salpingo-oophorectomy Z90.79, Z90.721 1989 BENIGN TUMOR History of radical hysterectomy Z90.710 History of splenectomy Z90.81 2009 History of ventral hernia repair Z98.890, Z87.19 Surgical History: appendectomy, cholecystectomy, herniorrhaphy - Incisional hernia repair 2008, hysterectomy, - - Liver transplant, splenectomy, hysterectomy, left knee surgery, removal of left ovary, total mouth extraction Psychiatric History: No pertinent psych hx SQUAD BOSS History: No pertinent [place] history Lives: Spouse/ Significant Other Smoking Status: Never smoker Tobacco Use: Non-smoker Alcohol: None Drugs: None - *Family History Maternal Family History: Family History (Last Reviewed 11/19/17 @ 13:38 by Roxie Read) Mother Diabetes Anemia Father Hypertension LUNG/RESPIRATORY DISEASE History Items: Diabetes, Heart Disease Paternal Family History: Family History (Last Reviewed 11/19/17 @ 13:38 by Roxie Read) Mother Diabetes Anemia Father Hypertension LUNG/RESPIRATORY DISEASE History Items: Cancer, Heart Disease Sibling Family History: Family History (Last Reviewed 11/19/17 @ 13:38 by Roxie Read) Mother Diabetes Anemia Father Hypertension LUNG/RESPIRATORY DISEASE History Items: - - Cirrhosis Review of Systems Constitutional: Denies: Anorexia, Chills, Fever, Night Sweats, Malaise, Weakness, Weight Change, Fatigue Eyes: Denies: Blurred vision, Cataracts, Conjunctivae Inflammation, Double vision, Drainage HEENT: Denies: Difficulty Swallowing, Dysphasia, Ear Pain, Eye Pain, Hearing Changes, Nasal bleeding, Nasal Congestion, Post Nasal Drip Cardiovascular: Denies: Chest Pain, Claudication, Chest Pressure, Chest Tightne ss, Edema, Palpitations, Paroxysmal Noc. Dyspnea Respiratory: Denies: Cough, Hemoptysis, Pleuritic Pain, Shortness of Breath, Shortness of breath at rest, Shortness of breath upon exertion, Sputum production Gastrointestinal: Reports: - - Right lower abdominal wall tenderness. Denies: Abdominal Pain, Constipation, Diarrhea, Dyspepsia, Hematemesis, Hematochezia, Nausea, Melena, Vomiting Genitourinary: Denies: Dysuria, Frequency, Hematuria, Hesitancy, Urgency Gynecological: Denies: Breast symptoms Musculoskeletal: Denies: Back Pain, Foot Pain, Hand Pain, Joint Pain, Joint stiffness, Joint swelling, Joint Tenderness, Leg Pain Skin: Reports: Rash, - - Chronic psoriasis. Denies: Dryness, Pruritis Neurological: Denies: Blurred vision, Double vision, Change in Speech, Slurred speech, Difficulty swallowing, Focal weakness, Headaches, Incoordination, Numbness, Tingling Psychiatric: Denies: Anxiety, Depression, Homicidal Ideations, Suicidal Ideations Endocrine: Denies: Change in Body Habitus, Heat/ Cold Intolerance, Polydipsia, Polyuria Hematologic/ Lymphatic: Denies: Adenopathy, Anemia, Easy Bruising, Easy Bleeding, Petechiae, Purpura VTE Information - Inpt Only VTE Present on Admission: No VTE Mechan Device Prophylaxis: None VTE Pharm Prophylaxis ordered?: Yes Patient Problems: Active and Suspected Problems (Last Reviewed 11/19/17 @ 13:38 by Roxie Read) Cellulitis of right abdominal wall (Acute) - Physical Exam General: Alert, Oriented x3, Cooperative, No apparent distress, Well developed, Well nourished HEENT: Atraumatic, PERRLA, EOMI, Normocephalic Oral: Moist Mucosa Neck: Supple, No JVD, Negative Carotid Bruits, Trachea Midline, Thyroid Normal Size and Texture Lungs: Clear to auscultation, Normal air movement, No rhonchi, No wheeze, No rales Cardiovascular: Regular rate, Regular Rhythm, Normal S1, Normal S2, No murmurs, No Ectopic Activity, PMI Normal, No rub noted, No Gallop Abdomen: Bowel Sounds Present, Soft, Non Tender, Non-Distended, No hernias noted Extremities: No edema, Capillary Refill Less than 3 Seconds Skin: Rash Present - There is a reddened area present over the patient's right lower abdominal wall area, this area measures approximately 15 cm x 10 cm in diameter commissary is tender to palpation, - - There are scattered areas of skin excoriation present over the patient's right lateral abdominal area Musculoskeletal: No Tenderness to Palpation of Joints or Extremities, No Muscle Wasting Neurological: Cranial nerves II-XII grossly intact, Neuro grossly intact, Sensory exam intact to light touch and pain, Coordination normal Psych/Mental Status: Normal Affect, Appropriate, Alert and oriented to time, place, person, mood and affect Vital Signs Temp Pulse Resp BP Pulse Ox 98.4 F 65 18 153/76 H 97 07/04/18 13:42 07/04/18 13:42 07/04/18 13:42 07/04/18 13:42 07/04/18 13:42 Oxygen Delivery Method Room Air Weight: 116.6 kg Body Mass Index (BMI) 42.7 Finger Stick Blood Glucose 427 Laboratory Tests Past 24 Hrs 07/04/18 07/04/18 11:21 11:21 WBC 4.0 L RBC 3.97 L Hgb 9.2 L Hct 30.5 L MCV 76.8 L MCH 23.2 L MCHC 30.2 L RDW 17.8 H RDW Differential 50.9 H Plt Count 96 L MPV 9.6 Immature Gran % (Auto) 0.500 Neut % (Auto) 74.8 H Lymph % (Auto) 12.2 L [place] % (Auto) 9.5 Eos % (Auto) 3.0 Baso % (Auto) 0.0 Absolute Neuts (auto) 3.0 Absolute Lymphs (auto) 0.49 L Total Counted Not Reportable Differential Comment Sodium 136 Potassium 4.7 Chloride 106 Carbon Dioxide 24.0 Anion Gap 6 BUN 55 H Creatinine 2.23 H Estim Creat Clear Calc 23.84 Est GFR (MDRD) Af Amer 29 L Est GFR (MDRD) Non-Af 24 L BUN/Creatinine Ratio 24.7 H Glucose 139 H Calcium 8.4 L POC Glucose 07/04/18 07/04/18 16:44 14:09 POC Glucose 135 H 109 Assessment/Plan All Active Problems (Last Reviewed 11/19/17 @ 13:38 by Roxie Read) Severe sepsis (Resolved) Dehydration (Resolved) Acute kidney injury superimposed on chronic kidney disease (Resolved) Diastolic CHF, acute (Resolved) Hypomagnesemia (Resolved) Acute respiratory failure with hypoxia (Resolved) Pleural effusion (Resolved) Cellulitis (Resolved) Diabetic foot ulcer (Resolved) Foreign body in right foot with infection (Resolved) Right foot pain (Resolved) Cellulitis of right abdominal wall (Acute) HOFFMAN (nonalcoholic steatohepatitis) (Resolved) #1 right lower abdominal wall cellulitis-failed outpatient therapy, probably secondary to either staph or strep-patient will be admitted to [facility], I will use IV Ancef, CBC will be repeated tomorrow, BMP will be repeated tomorrow. Patient will remain on her home medications #2 chronic kidney disease stage IV-etiology unclear, labs will be monitored #3 chronic immunosuppressive usage secondary to past history of liver transplant due to HOFFMAN #4 morbid obesity #5 iron deficiency anemia-patient will be given IV Venofer during her hospital stay here, I talked with her oncologist briefly by phone today and he recommended 3 doses of IV Venofer over 3 days. #6 thrombocytopenia-etiology unclear, possibly due to immunosuppressants-monitor CBC #7 hypertension #8 chronic psoriasis #9 leukopenia-probably secondary to immunosuppressant drug usage #10 history of obstructive sleep apnea-noncompliant with CPAP, patient has CPAP machine at home but does not use it Code Visit Inpatient E&M: 18528 Init Hosp L3
[2018-07-04 19:48] VITALS: BP 159/65; PULSE 77; RESP 19; TEMP 36.8; O2SAT 97
[2018-07-04] MEDS: traZODone 100 MG Tablet PO (22:55)
[2018-07-04] MEDS: Atorvastatin Calcium 10 MG Tablet PO (22:55)
[2018-07-04] MEDS: Labetalol 200 MG Tablet 600 MG PO (22:55)
[2018-07-04] MEDS: Pramipexole Di-HCl 0.5 MG Tablet PO (22:55)
[2018-07-04 23:04] VITALS: BP 158/66; PULSE 72; RESP 18; TEMP 36.9; O2SAT 96
[2018-07-04 23:06] LABS: Bedside Glucose 110 mg/dL (70-110)
[2018-07-05 04:26] VITALS: BP 140/66; PULSE 65; RESP 18; TEMP 36.7; O2SAT 95
[2018-07-05] MEDS: Levothyroxine 25 MCG TABLET PO (05:05)
[2018-07-05 06:28] LABS: Absolute Lymphocyte Count 0.64 X10^3/ul (0.83-4.51); Absolute Neutrophil Count 3.1 X10^3/uL (2.0-7.7); Basophil# 0.01 X10^3/uL; Basophil% 0.2 % (0-1); Eosinophil# 0.14 X10^3/uL; Eosinophils% 3.2 % (0-5); Hematocrit 29.1 % (37-47); Hemoglobin 8.8 g/dl (12.0-15.0); Lymphocyte # 0.64 X10^3/ul (4.0); Lymphocyte % 14.8 % (19-41); Mean Corp Hgb Conc 30.2 g/gl (32-36); Mean Corpuscular Hgb 23.5 pg (27.0-32.0); Mean Corpuscular Volume 77.8 fL (81-99); Mean Platelet Vol. 9.9 fl (6.2-12.0); Monocyte# 0.36 X10^3/uL; Monocyte% 8.3 % (0-10); Neutrophil # 3.13 X10^3/uL (2.7-7.7); Neutrophil % 72.3 % (47-70); Platelet Count 101 K/mm3 (150-450); RBC Distribution Width CV 18.2 % (11.6-14.6); Red Blood Count 3.74 M/mm3 (4.2-5.4); White Blood Count 4.3 K/mm3 (4.4-11.0)
[2018-07-05 06:41] LABS: BUN 60 mg/dL (7-18); Creatinine, Serum 2.18 mg/dL (0.55-1.02); Estimated Creatinine Clearance 24.39 ml/min; Glucose 100 mg/dL (74-106); POSITIVE COUNT NO; POSITIVE DIFFERENTIAL NO; POSITIVE MORPHOLOGY NO
[2018-07-05 06:42] LABS: Anion Gap 5 (5-15); BUN/Creat Ratio 27.5 RATIO (10-20); Calcium,Total 8.3 mg/dL (8.5-10.1); Chloride 107 mmol/L (98-107); EST Glomerular Filtration Rate 24 mL/min (>60); Est Glom Filt Rate - Afr Amer 30 mL/min (>60); Potassium 4.3 mmol/L (3.5-5.1); Sodium Level 137 mmol/L (136-145)
[2018-07-05 08:19] VITALS: BP 156/67; PULSE 65; RESP 18; TEMP 36.9; O2SAT 97
[2018-07-05] MEDS: Sertraline 50 MG Tablet PO (08:28)
[2018-07-05] MEDS: Labetalol 200 MG Tablet 600 MG PO ×2 (08:28→20:52)
[2018-07-05] MEDS: Pramipexole Di-HCl 0.5 MG Tablet PO ×2 (08:28→20:52)
[2018-07-05] MEDS: Furosemide 40 MG Tablet 60 MG PO ×2 (08:28→16:54)
[2018-07-05] MEDS: Glucerna Shake 120 ML LIQUID PO (08:29)
[2018-07-05] MEDS: SIROLIMUS 1 MG TABLET PO (08:31)
[2018-07-05] MEDS: Enoxaparin 30 MG/0.3 ML Syringe SC (08:31)
[2018-07-05 09:41] LABS: Bedside Glucose 99 mg/dL (70-110)
[2018-07-05] MEDS: Cefazolin 1 GM/50 ML BAG IV ×2 (10:22→20:56)
[2018-07-05] MEDS: Ferrous Sulfate 325 MG Tablet PO (11:13)
[2018-07-05 11:31] LABS: Bedside Glucose 174 mg/dL (70-110)
[2018-07-05] MEDS: Insulin Lispro 100 UNIT/ML INSULN.PEN SQ (11:49)
[2018-07-05] MEDS: Insulin Lispro 100 UNIT/ML INSULN.PEN SC (11:49)
[2018-07-05 15:09] VITALS: BP 157/63; PULSE 71; RESP 16; TEMP 36.6; O2SAT 98
[2018-07-05 17:01] LABS: Bedside Glucose 83 mg/dL (70-110)
--- NOTE | 2018-07-05 17:27 | PCM.PROGNOTE ---
Patient Problems: Active and Suspected Problems (Last Reviewed 11/19/17 @ 13:38 by Roxie Read) Cellulitis of right abdominal wall (Acute) Subjective: Patient was seen and examined today, the redness over her right lower abdomen is improved but she still has some discomfort. - Physical Exam General: Alert, Oriented x3, Cooperative, No apparent distress, Well developed HEENT: Atraumatic, PERRLA, EOMI, Normocephalic Oral: Moist Mucosa Neck: Supple, No JVD, No Nuchal Rigidity, Trachea Midline, Thyroid Normal Size and Texture Lungs: Clear to auscultation, Normal air movement, No rhonchi, No wheeze, No rales Cardiovascular: Regular rate, Regular Rhythm, Normal S1, Normal S2, No murmurs, No Ectopic Activity, PMI Normal, No rub noted, No Gallop Abdomen: Bowel Sounds Present, Soft, Non Tender, Non-Distended Extremities: Capillary Refill Less than 3 Seconds, Edema - Generalized edema is noted over both lower extremities Skin: - - There is an erythematous area over the patient's right lateral and lower abdominal area, this area is improved from the examination yesterday and there is less redness, area continues to be tender Musculoskeletal: No Tenderness to Palpation of Joints or Extremities Neurological: Cranial nerves II-XII grossly intact, Neuro grossly intact, Sensory exam intact to light touch and pain, Coordination normal Psych/Mental Status: Normal Affect, Appropriate, Alert and oriented to time, place, person, mood and affect Vital Signs Temp Pulse Resp BP Pulse Ox 97.9 F 71 16 157/63 H 98 07/05/18 15:09 07/05/18 15:09 07/05/18 15:09 07/05/18 15:09 07/05/18 15:09 Oxygen Delivery Method Room Air Weight: 116.6 kg Body Mass Index (BMI) 42.7 Finger Stick Blood Glucose 427 Intake and Output for Last 24 Hours 07/03/18 07/04/18 07/05/18 23:59 23:59 23:59 Intake Total 550 / 550 1324 / 1324 Output Total 200 / 200 Balance 350 / 350 1324 / 1324 Laboratory Tests Past 24 Hrs 07/05/18 07/05/18 06:10 06:10 WBC 4.3 L RBC 3.74 L Hgb 8.8 L Hct 29.1 L MCV 77.8 L MCH 23.5 L MCHC 30.2 L RDW 18.2 H RDW Differential 52.0 H Plt Count 101 L MPV 9.9 Immature Gran % (Auto) 1.200 H Neut % (Auto) 72.3 H Lymph % (Auto) 14.8 L [place] % (Auto) 8.3 Eos % (Auto) 3.2 Baso % (Auto) 0.2 Absolute Neuts (auto) 3.1 Absolute Lymphs (auto) 0.64 L Total Counted Not Reportable Sodium 137 Potassium 4.3 Chloride 107 Carbon Dioxide 25.0 Anion Gap 5 BUN 60 H Creatinine 2.18 H Estim Creat Clear Calc 24.39 Est GFR (MDRD) Af Amer 30 L Est GFR (MDRD) Non-Af 24 L BUN/Creatinine Ratio 27.5 H Glucose 100 Calcium 8.3 L POC Glucose 07/05/18 07/05/18 07/05/18 16:52 11:22 05:03 POC Glucose 83 174 H 99 07/04/18 22:51 POC Glucose 110 Medical Necessity - Tobacco Use Smoking Status: Never smoker Tobacco Use: Non-smoker Assessment/Plan All Active Problems (Last Reviewed 11/19/17 @ 13:38 by Roxie Read) Severe sepsis (Resolved) Dehydration (Resolved) Acute kidney injury superimposed on chronic kidney disease (Resolved) Diastolic CHF, acute (Resolved) Hypomagnesemia (Resolved) Acute respiratory failure with hypoxia (Resolved) Pleural effusion (Resolved) Cellulitis (Resolved) Diabetic foot ulcer (Resolved) Foreign body in right foot with infection (Resolved) Right foot pain (Resolved) Cellulitis of right abdominal wall (Acute) HOFFMAN (nonalcoholic steatohepatitis) (Resolved) #1 right lower abdominal wall cellulitis-failed outpatient therapy, probably secondary to either staph or strep-continue Ancef 2 chronic kidney disease stage IV-etiology unclear, labs will be monitored #3 chronic immunosuppressive usage secondary to past history of liver transplant due to HOFFMAN #4 morbid obesity #5 iron deficiency anemia-patient will be given IV Venofer #6 thrombocytopenia-etiology unclear, possibly due to immunosuppressants #7 hypertension #8 chronic psoriasis #9 leukopenia-probably secondary to immunosuppressant drug usage #10 history of obstructive sleep apnea-noncompliant with CPAP, patient has CPAP machine at home but does not use it Code Visit Inpatient E&M: 11172 Subs Hosp L2
[2018-07-05 20:35] VITALS: BP 161/71; PULSE 72; RESP 16; TEMP 36.8; O2SAT 97
[2018-07-05] MEDS: Atorvastatin Calcium 10 MG Tablet PO (20:52)
[2018-07-05] MEDS: traZODone 100 MG Tablet PO (20:53)
[2018-07-05] MEDS: 0.9% NaCl Peripheral Flush Adult/Peds IV ×2 (20:55→22:38)
[2018-07-05 20:56] LABS: Bedside Glucose 112 mg/dL (70-110)
[2018-07-06 02:08] VITALS: BP 145/69; PULSE 71; RESP 18; TEMP 36.9; O2SAT 98
[2018-07-06] MEDS: Levothyroxine 25 MCG TABLET PO (05:24)
[2018-07-06 07:30] VITALS: BP 149/64; PULSE 64; RESP 16; TEMP 36.5; O2SAT 100
[2018-07-06 07:46] LABS: Bedside Glucose 130 mg/dL (70-110)
[2018-07-06] MEDS: Insulin Lispro 100 UNIT/ML INSULN.PEN SC (08:12)
[2018-07-06] MEDS: Furosemide 40 MG Tablet 60 MG PO (08:13)
[2018-07-06] MEDS: Pramipexole Di-HCl 0.5 MG Tablet PO (08:14)
[2018-07-06] MEDS: Enoxaparin 30 MG/0.3 ML Syringe SC (08:14)
[2018-07-06] MEDS: Sertraline 50 MG Tablet PO (08:16)
[2018-07-06] MEDS: Labetalol 200 MG Tablet 600 MG PO (08:16)
[2018-07-06] MEDS: SIROLIMUS 1 MG TABLET PO (09:27)
[2018-07-06] MEDS: 0.9% NaCl Peripheral Flush Adult/Peds IV (09:27)
[2018-07-06] MEDS: Cefazolin 1 GM/50 ML BAG IV (09:27)
--- NOTE | 2018-07-06 11:28 | DCINST_ITS ---
- Discharge Diagnoses Current Active Problems: Current Active and Chronic Problems (Last Reviewed 11/19/17 @ 13:38 by Roxie Read) Cellulitis of right abdominal wall (Acute) You will use the following diet at home:: Calorie/Carbohydrate Controlled (specify 1200, 1400, etc) - 1800 nishant Your food should be the consistency of: Regular Your liquids should be the consistency of: Regular/Thin Discharge Activity: Return to Normal Activity Weight Bearing Status: Full weight bearing Allergies/Adverse Reactions: Allergies amlodipine [From Norvasc] Adverse Reaction (Severe, Verified 07/04/18 10:59) Hives ampicillin sodium [From Unasyn] Adverse Reaction (Severe, Verified 07/04/18 10:59) Hives buspirone HCl [From BuSpar] Adverse Reaction (Severe, Verified 07/04/18 10:59) Hives lisinopril Adverse Reaction (Severe, Verified 07/04/18 10:59) Swelling naproxen Adverse Reaction (Severe, Verified 07/04/18 10:59) Hives niacin [From Niaspan Extended-Release] Adverse Reaction (Severe, Verified 0 07/04/18 10:59) Hives omeprazole Adverse Reaction (Severe, Verified 07/04/18 10:59) Other stage 3 kidney failure UNABLE TO TAKE DUE TO TRANSPLALNT sulbactam sodium [From Unasyn] Adverse Reaction (Severe, Verified 07/04/18 10:59) Hives Sulfa (Sulfonamide Antibiotics) Adverse Reaction (Severe, Verified 07/04/18 10:59) Hives losartan Adverse Reaction (Verified 07/04/18 14:34) Swelling DURACEF Adverse Reaction (Severe, Uncoded 07/04/18 10:59) Hives Medications to take at Discharge Ascorbic Acid [Vitamin C] 1,000 mg PO DAILY 02/20/15 Cholecalciferol (VIT D3) [Vitamin D3] 1,000 unit PO DAILY 02/20/15 Ropinirole HCl [Requip] 1 mg PO BID 02/20/15 Sertraline HCl [Zoloft] 50 mg PO DAILY 02/20/15 Tacrolimus Anhydrous [Prograf] 0.5 mg PO DAILY 03/18/16 Trazodone HCl 100 mg PO QHS 03/18/16 Furosemide 60 mg PO BID 06/19/16 Levothyroxine [Synthroid] 25 mcg PO DAILY 06/19/16 Ferrous Sulfate [Iron] 325 mg PO DAILY 07/19/16 Sirolimus 1 mg PO DAILY 08/01/16 Labetalol [Trandate (Beta Dragan)] 600 mg PO BID 08/20/16 Atorvastatin Calcium [Lipitor] 10 mg PO QHS 10/19/16 Apremilast [Otezla] 30 mg PO BID 01/15/18 Cyanocobalamin (Vitamin B-12) [Vitamin B-12] 1,000 mcg PO DAILY 05/29/18 Insulin Aspart [Novolog Flexpen] 0 units SC TID 05/29/18 Insulin Aspart [Novolog Flexpen] 5 units SC BIDCM 05/29/18 Insulin Aspart [Novolog Flexpen] 10 units SC DINNER 05/29/18 Insulin Glargine,Hum.rec.anlog [Lantus Solostar] 50 unit SQ BID 05/29/18 Desoximetasone [Topicort] 60 gm TP PRN PRN 07/04/18 Cephalexin [Keflex] 500 mg PO Q12 #11 capsule 07/06/18 Desoximetasone [Topicort] 1 gm TP TID PRN PRN cream..g. 07/06/18 The following prescriptions were given: Cephalexin [Keflex] 500 mg PO Q12 #11 capsule Primary Care Physician: Velia Archuleta MD [Primary Care Provider] - Please follow up with your Primary Care Physician in: as scheduled Test Results: Test results from this visit will be discussed in further detail at your follow- up appointment, if applicable.
[2018-07-06 11:36] VITALS: BP 149/68; PULSE 66; RESP 16; TEMP 36.6; O2SAT 98
[2018-07-06 11:36] LABS: Bedside Glucose 128 mg/dL (70-110)
--- NOTE | 2018-07-06 19:47 | PCM.DC.SUM ---
Discharge Date and Diagnosis Date of Admission: 07/04/18 Date of Discharge: 07/06/18 - Primary Discharge Diagnosis #1 right lower abdominal wall cellulitis-failed outpatient therapy, probably secondary to either staph or strep #2 chronic kidney disease stage IV-etiology unclear #3 chronic immunosuppressive usage secondary to past history of liver transplant due to HOFFMAN #4 morbid obesity #5 iron deficiency anemia #6 thrombocytopenia-etiology unclear, possibly due to immunosuppressants #7 hypertension #8 chronic psoriasis #9 leukopenia-probably secondary to immunosuppressant drug usage #10 history of obstructive sleep apnea-noncompliant with CPAP - Secondary Discharge Diagnosis Chronic Problems (Last Reviewed 11/19/17 @ 13:38 by Roxie Read) Obstructive sleep apnea syndrome (Chronic) Portal hypertension (Chronic) History of liver transplant (Chronic) Type 2 diabetes mellitus (Chronic) Immunosuppressed status (Chronic) Psoriasis (Chronic) 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) RLS (restless legs syndrome) (Chronic) Microcytic anemia (Chronic) Diabetes mellitus type 2 in obese (Chronic) S/P liver transplant (Chronic) uterine and cervical cancer (Chronic) Bilateral leg edema (Chronic) Immunocompromised patient (Chronic) Thrombocytopenia (Chronic) Anemia in chronic kidney disease (Chronic) 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) Pancytopenia (Chronic) Neutropenia (Chronic) Iron deficiency anemia (Chronic) CKD (chronic kidney disease), stage III (Chronic) Hospital Course and Treatment Operations: None Procedures: None Summary of Care Provided: The patient is a 63 year old F was seen in the emergency room at [facility] with chief complaint of redness and discomfort over her right lower abdomen, she had been treated for cellulitis of her back with antibiotics for approximately 8 days, the cellulitis on her back has resolved but she noticed an area of redness and discomfort on her right lower abdomen and came to the ER for evaluation. Evaluation in the ER showed a white blood cell count of 4000, hemoglobin was 9.2, platelet count was 96,000. Creatinine was 2.23 and BUN was 55. Patient was admitted to [place] [id number] for right lower abdominal wall cellulitis unresponsive to outpatient therapy, she was placed on IV Ancef and over the next 48 hours her condition improved. She was given IV Venofer for her anemia. On 07/06/2018, patient was seen and examined: On examination she appeared in good health and spirits. Vital signs as documented. Skin warm and dry, there is a area of mild redness over her right lower abdomen which was tender to palpation mildly.. Neck without JVD. Lungs clear. Heart exam notable for regular rhythm, normal sounds and absence of murmurs, rubs or gallops. Abdomen unremarkable and without evidence of organomegaly, masses, or abdominal aortic enlargement. Extremities nonedematous. Neuro: Cranial nerves II through XII are grossly intact, no focal motor deficits were noted, sensation to light touch and pinprick is intact. Psych: Patient is alert and oriented x3, she does not appear anxious or depressed On 07/06/2018, patient was seen and examined felt to be in stable condition for discharge home - Physical Exam Vital Signs Temp Pulse Resp BP Pulse Ox 97.9 F 66 16 149/68 H 98 07/06/18 11:36 07/06/18 11:36 07/06/18 11:36 07/06/18 11:36 07/06/18 11:36 Oxygen Delivery Method Room Air Weight: 116.6 kg Body Mass Index (BMI) 42.7 Finger Stick Blood Glucose 427 Intake and Output for Last 24 Hours 07/04/18 07/05/18 07/06/18 23:59 23:59 23:59 Intake Total 550 / 550 1732 / 1732 100 / 100 Output Total 200 / 200 Balance 350 / 350 1732 / 1732 100 / 100 POC Glucose 07/06/18 07/06/18 07/05/18 11:29 07:27 20:50 POC Glucose 128 H 130 H 112 H Discharge Activity: Return to Normal Activity Weight Bearing Status: Full weight bearing Home Medications: Medications to take at Discharge Ascorbic Acid [Vitamin C] 1,000 mg PO DAILY 02/20/15 Cholecalciferol (VIT D3) [Vitamin D3] 1,000 unit PO DAILY 02/20/15 Ropinirole HCl [Requip] 1 mg PO BID 02/20/15 Sertraline HCl [Zoloft] 50 mg PO DAILY 02/20/15 Tacrolimus Anhydrous [Prograf] 0.5 mg PO DAILY 03/18/16 Trazodone HCl 100 mg PO QHS 03/18/16 Furosemide 60 mg PO BID 06/19/16 Levothyroxine [Synthroid] 25 mcg PO DAILY 06/19/16 Ferrous Sulfate [Iron] 325 mg PO DAILY 07/19/16 Sirolimus 1 mg PO DAILY 08/01/16 Labetalol [Trandate (Beta Dragan)] 600 mg PO BID 08/20/16 Atorvastatin Calcium [Lipitor] 10 mg PO QHS 10/19/16 Apremilast [Otezla] 30 mg PO BID 01/15/18 Cyanocobalamin (Vitamin B-12) [Vitamin B-12] 1,000 mcg PO DAILY 05/29/18 Insulin Aspart [Novolog Flexpen] 0 units SC TID 05/29/18 Insulin Aspart [Novolog Flexpen] 5 units SC BIDCM 05/29/18 Insulin Aspart [Novolog Flexpen] 10 units SC DINNER 05/29/18 Insulin Glargine,Hum.rec.anlog [Lantus Solostar] 50 unit SQ BID 05/29/18 Desoximetasone [Topicort] 60 gm TP PRN PRN 07/04/18 Cephalexin [Keflex] 500 mg PO Q12 #11 capsule 07/06/18 Desoximetasone [Topicort] 1 gm TP TID PRN PRN cream..g. 07/06/18 Following Prescrptions Were Given to Patient: Cephalexin [Keflex] 500 mg PO Q12 #11 capsule Primary Care Physician: Velia Archuleta MD [Primary Care Provider] - Please follow up with your Primary Care Physician in: as scheduled Disposition: Home Minutes spent on discharge:: 32 Patient Condition:: Stable Medical Necessity - Tobacco Use Smoking Status: Never smoker Tobacco Use: Non-smoker Meaningful Use Info Meaningful Use Diagnoses (Choose all that apply): None applicable Code Visit Inpatient E&M: 20351 Disch Hosp
--- NOTE | 2018-07-07 13:03 | CASEMGMT ---
NIEVES BIANCHI DC PHONE CALL DC DATE: 07/06/18 DC Disposition: Home LACE/STRATA: 14/06 Call to phone, no answer, and message machine did not have personal identifier. Keiko THORNTONN RN ACM
== END 2018-07-06 11:40 | disposition home or self-care (01) | DRG 603 ==
LOC: ED 12:50 → MS3 13:03
PROVIDERS: Admitting Provider Internal Medicine; Emergency Provider Emergency Medicine; Family Provider Internal Medicine; PCP Internal Medicine; Visit Provider Internal Medicine
DX: L03.311 Cellulitis of abdominal wall (principal); Z94.4 Liver transplant status; Z68.41 Body mass index [BMI] 40.0-44.9, adult; N18.4 Chronic kidney disease, stage 4 (severe); D61.818 Other pancytopenia; E66.01 Morbid (severe) obesity due to excess calories; D50.9 Iron deficiency anemia, unspecified; D69.6 Thrombocytopenia, unspecified; L40.9 Psoriasis, unspecified; G47.33 Obstructive sleep apnea (adult) (pediatric); D72.819 Decreased white blood cell count, unspecified; I10 Essential (primary) hypertension; G25.81 Restless legs syndrome; D63.1 Anemia in chronic kidney disease; Z91.19 Patient's noncompliance with other medical treatment and regimen; E11.22 Type 2 diabetes mellitus with diabetic chronic kidney disease; Z79.4 Long term (current) use of insulin
CPT/HCPCS: 36415; 80048; 82962; 85025; 97802; 99282; 99284; J1756; J7040; J7050; A4216

== ENCOUNTER → 2018-07-07 11:07 | Outpatient (CLI) | payer MEDICARE, SELFPAY ==
[2018-07-04 13:40] VITALS: BMI 42.7
[2018-07-07 11:53] LABS: Absolute Lymphocyte Count 0.53 X10^3/ul (0.83-4.51); Absolute Neutrophil Count 3.1 X10^3/uL (2.0-7.7); Eosinophil# 0.15 X10^3/uL; Eosinophils% 3.8 % (0-5); Hematocrit 30.9 % (37-47); Hemoglobin 9.3 g/dl (12.0-15.0); Lymphocyte # 0.53 X10^3/ul (4.0); Lymphocyte % 13.4 % (19-41); Mean Corp Hgb Conc 30.1 g/gl (32-36); Mean Corpuscular Hgb 23.5 pg (27.0-32.0); Mean Platelet Vol. 9.5 fl (6.2-12.0); Monocyte# 0.19 X10^3/uL; Monocyte% 4.8 % (0-10); Neutrophil # 3.07 X10^3/uL (2.7-7.7); Neutrophil % 77.2 % (47-70); Platelet Count 101 K/mm3 (150-450); RBC Distribution Width CV 18.4 % (11.6-14.6); RBC Distribution Width SD 52.4 fl (35.1-43.9); Red Blood Count 3.96 M/mm3 (4.2-5.4)
[2018-07-07 11:55] LABS: Differential Indicated SCAN CRITERIA MET; POSITIVE COUNT NO; POSITIVE DIFFERENTIAL YES; POSITIVE MORPHOLOGY NO
[2018-07-07 12:01] LABS: Protein:Creat Ratio 599 mg/g CRE (0-200)
[2018-07-07 12:21] LABS: Vitamin D,25 Hydroxy 55.2 ng/mL (29.95-100.01)
[2018-07-07 12:23] LABS: Albumin, Serum 3.2 g/dL (3.2-5.0); BUN 60 mg/dL (7-18); BUN/Creat Ratio 28.2 RATIO (10-20); Calcium,Total 8.3 mg/dL (8.5-10.1); Chloride 110 mmol/L (98-107); Creatinine, Serum 2.13 mg/dL (0.55-1.02); EST Glomerular Filtration Rate 25 mL/min (>60); Est Glom Filt Rate - Afr Amer 30 mL/min (>60); Glucose 128 mg/dL (74-106); PTHIN 148.4 pg/mL (18.4-80.1); Phosphorus 4.2 mg/dL (2.5-4.9); Potassium 4.4 mmol/L (3.5-5.1); Sodium Level 138 mmol/L (136-145)
[2018-07-08 15:24] LABS: Pathologist Review Reviewed
== END ==
PROVIDERS: Family Provider Internal Medicine; PCP Internal Medicine; Referring Provider Internal Medicine Nephrology; Visit Provider Internal Medicine Nephrology
DX: N18.3 Chronic kidney disease, stage 3 (moderate) (principal); D63.1 Anemia in chronic kidney disease; E55.9 Vitamin D deficiency, unspecified
CPT/HCPCS: 36415; 80069; 82306; 82570; 83970; 84156; 85025

== ENCOUNTER 2018-08-17 06:36 | Emergency (ER) | payer MEDICARE, SELFPAY ==
[2018-07-04 13:40] VITALS: BMI 42.7
[2018-08-17 06:36] VITALS: BP 153/65; PULSE 72; RESP 18; TEMP 37.1; O2SAT 98; BMI 41.5
--- NOTE | 2018-08-17 06:50 | RAD_ITS ---
STUDY: X-RAY - RIGHT FOOT CLINICAL: Female, 63 years old. Pain, swelling TECHNIQUE: 3 view(s) of the foot. COMPARISON: 07/19/2016 FINDINGS: There is diffuse soft tissue edema. There is a calcaneal spur. Evaluation of the phalanges is limited due to significant flexion deformities. There is generalized osteopenia. There are no fractures. There are degenerative changes most significant at the tarsal metatarsal joints with sclerosis. RAD/Foot min 3 Views IMPRESSION: Significant soft tissue edema Calcaneal spur Osteoarthrosis tarsometatarsal joints Nondiagnostic evaluation of the phalanges due to flexion deformities, if there is clinical concern for fracture of the phalanges than a repeat exam would be recommended Electronically Signed: Rosalio Teague, at 7:41 EDT Tel , Service support ,
[2018-08-17] MEDS: HYDROcodone Bitartrate/Apap 5/325 Tablet PO (08:01)
--- NOTE | 2018-08-17 08:12 | ED.VIS.GEN ---
History of Present Illness Chief Complaint: Lower Extremity Injury Informant: Patient Onset: Today Current Severity: Mild Narrative: The patient complains of right lateral foot pain that occurred today when she woke, went to sleep feeling fine, no obvious injury noted exposures of any kind, she does have a history of liver transplant her liver transplant status has been stable she has had no recent infections, she has history of cellulitis No history of joint infections orthopedic issues other than reports she has some problems with her feet related to arthritis Takes her hand and draws it across the right lateral foot as the area of discomfort she has no ankle tib-fib knee pain no numbness weakness or paresthesias Past Medical History - Allergies and Home Meds Allergies/Adverse Reactions: Allergies amlodipine [From Norvasc] Adverse Reaction (Severe, Verified 08/17/18 06:41) Hives ampicillin sodium [From Unasyn] Adverse Reaction (Severe, Verified 08/17/18 06:41) Hives buspirone HCl [From BuSpar] Adverse Reaction (Severe, Verified 08/17/18 06:41) Hives lisinopril Adverse Reaction (Severe, Verified 08/17/18 06:41) Swelling naproxen Adverse Reaction (Severe, Verified 08/17/18 06:41) Hives niacin [From Niaspan Extended-Release] Adverse Reaction (Severe, Verified 08/17/18 06:41) Hives omeprazole Adverse Reaction (Severe, Verified 08/17/18 06:41) Other stage 3 kidney failure UNABLE TO TAKE DUE TO TRANSPLALNT sulbactam sodium [From Unasyn] Adverse Reaction (Severe, Verified 08/17/18 06:41) Hives Sulfa (Sulfonamide Antibiotics) Adverse Reaction (Severe, Verified 08/17/18 06:41) Hives cephalexin [From Keflex] Adverse Reaction (Verified 08/17/18 06:41) Hives losartan Adverse Reaction (Verified 08/17/18 06:41) Swelling DURACEF Adverse Reaction (Severe, Uncoded 07/04/18 10:59) Hives Primary Care Physician: Velia Archuleta MD [Primary Care Provider] - Past Medical History: - - See above Surgical History: appendectomy, cholecystectomy, herniorrhaphy - Incisional hernia repair 2009, hysterectomy, - - Liver transplant, splenectomy, hysterectomy, left knee surgery, removal of left ovary, total mouth extraction Smoking Status: Never smoker - Family History Maternal Family History: Family History (Last Reviewed 11/19/17 @ 13:38 by Roxie Read) Mother Diabetes Anemia Father Hypertension LUNG/RESPIRATORY DISEASE Family History: Reports: Diabetes, Heart Disease Paternal Family History: Family History (Last Reviewed 11/19/17 @ 13:38 by Roxie Read) Mother Diabetes Anemia Father Hypertension LUNG/RESPIRATORY DISEASE Family History: Reports: Cancer, Heart Disease Sibling Family History: Family History (Last Reviewed 11/19/17 @ 13:38 by Roxie Read) Mother Diabetes Anemia Father Hypertension LUNG/RESPIRATORY DISEASE Family History: Reports: - - Cirrhosis Review of Systems General: Denies: Chills, Fever, Sweats Eyes: Denies: Visual changes - bilaterally, Diplopia ENT: Denies: Rhinorrhea, Sore throat Cardiovascular: Denies: Chest pain, Palpitations Respiratory: Denies: Dyspnea, Cough, Dyspnea on exertion Gastrointestinal: Denies: Abdominal pain, Nausea, Vomiting, Diarrhea, Melena, Hematochezia Genitourinary: Denies: Dysuria, Hematuria, Frequency Musculoskeletal: Reports: - - Only complaint is a right lateral foot. Denies: Back pain, Extremity Pain Skin: Denies: Rash, Wounds Neurological: Denies: Headache, Weakness, Numbness Physical Exam Vital Signs/Narrative: Vital Signs Temp Pulse Resp BP Pulse Ox 08/17/18 06:36 98.8 F 72 18 153/65 H 98 General: Well nourished, Well developed, No Acute Distress Head: Normocephalic, Atraumatic Eyes: Perrl, EOMI ENT: Moist mucous membranes, No rhinorrhea Neck: Supple, Nontender Cardiovascular: Regular rate, Regular rhythm, No murmurs Respiratory: No distress, CTA bilaterally, Chest nontender Abdomen: Soft, Nontender, Nondistended, Normal bowel sounds Back: Nontender, Normal Inspection Extremities: Nontender, No edema, - - She has a very mild discomfort to the right lateral foot there is no obvious signs of infection warmth trauma no defects or skin vascular status is intact she has good capillary refill the dorsal and plantar surface of the foot the toes are unremarkable the ankles unremarkable tib-fib knee unremarkable the left foot is unremarkable for anything acute, as well she does have some deformities to her toes that are chronic in nature related to her arthritis Skin: Normal color, No rash Neurological: Alert, Oriented x3, Cranial nerves II-XII grossly intact, Normal Strength, Normal Sensation Psychological: Normal affect, Normal Mood Diagnostic/Tx/Re-eval - Medical Decision Making The differential is rather extensive she assures me has been no trauma and she went to bed feeling fine given all the above x-rays were obtained that show soft tissue swelling, and significant DJD no acute fracture per radiology but nothing acute otherwise, I had a long conversation with the patient I explained the concept that the exact etiology unclear this could be related to unspecified trauma the arthritis early infection etc. at this time she indicates she is prone to some infections but she is really not prone to infections in this area she has taken doxycycline before with good results she will be provided that [place] for pain which is acceptable for all of her conditions and she will follow-up with her transplant service tomorrow postop shoe crutches ice elevation return for change in symptoms Home stable Final impression Right lateral foot pain etiology unclear History of liver transplant ED Disposition - Plan for ED Patient: Referrals: Velia Archuleta MD [Primary Care Provider] -
--- NOTE | 2018-08-17 08:19 | ED.DEP ---
ED Disposition - Plan for ED Patient: Instructions: ED Sprain Foot Prescriptions: Hydrocodone Bitart/Apap 5-325 [[place] 5MG-325MG] 1 tab PO Q4H PRN PRN 2 Days #10 tab PRN Reason: Pain Doxycycline 100 mg PO BID #20 cap Referrals: Velia Archuleta MD [Primary Care Provider] -
[2018-08-17 08:41] VITALS: BP 154/71; PULSE 72; RESP 18
[2018-08-17 08:43] VITALS: BP 154/71; PULSE 72; RESP 18; TEMP 37.1; O2SAT 98
== END 2018-08-17 08:40 | disposition home or self-care (01) ==
PROVIDERS: Emergency Provider Emergency Medicine; Family Provider Internal Medicine; PCP Internal Medicine
DX: M79.671 Pain in right foot (principal); M19.071 Primary osteoarthritis, right ankle and foot; Z94.4 Liver transplant status; Z79.4 Long term (current) use of insulin; Z79.899 Other long term (current) drug therapy; Z88.8 Allergy status to other drugs, medicaments and biological substances; Z88.6 Allergy status to analgesic agent; Z88.2 Allergy status to sulfonamides; Z88.1 Allergy status to other antibiotic agents; Z90.49 Acquired absence of other specified parts of digestive tract; Z90.710 Acquired absence of both cervix and uterus
CPT/HCPCS: 73630; 99283

== ENCOUNTER 2018-09-13 10:35 | Inpatient (IN) | payer MEDICARE, SELFPAY ==
[2018-09-13 10:36] VITALS: BP 147/66; PULSE 81; RESP 18; TEMP 36.6; O2SAT 98; BMI 40.9
[2018-09-13 11:06] VITALS: RESP 18
--- NOTE | 2018-09-13 11:12 | ED.DCSUM_ITS ---
History of Present Illness Chief Complaint: Cellulitis Informant: Patient Timing: Continuous Current Severity: Moderate Maximum Severity: Moderate Narrative: Patient is on outpatient antibiotics, doxycycline, for cellulitis of the abdominal wall. This has worsened. She denies any fever or chills. She does have a complicated history with diabetes and liver transplant she is on immunosuppressants. This is chronic and recurrent, she has pain it is moderate to severe. Past Medical History - Allergies and Home Meds Allergies/Adverse Reactions: Allergies amlodipine [From Norvasc] Adverse Reaction (Severe, Verified 09/13/18 10:38) Hives ampicillin sodium [From Unasyn] Adverse Reaction (Severe, Verified 09/13/18 10:38) Hives buspirone HCl [From BuSpar] Adverse Reaction (Severe, Verified 09/13/18 10:38) Hives lisinopril Adverse Reaction (Severe, Verified 09/13/18 10:38) Swelling naproxen Adverse Reaction (Severe, Verified 09/13/18 10:38) Hives niacin [From Niaspan Extended-Release] Adverse Reaction (Severe, Verified 09/13/18 10:38) Hives omeprazole Adverse Reaction (Severe, Verified 09/13/18 10:38) Other stage 3 kidney failure UNABLE TO TAKE DUE TO TRANSPLALNT sulbactam sodium [From Unasyn] Adverse Reaction (Severe, Verified 09/13/18 10:38) Hives Sulfa (Sulfonamide Antibiotics) Adverse Reaction (Severe, Verified 09/13/18 10:38) Hives cephalexin [From Keflex] Adverse Reaction (Verified 09/13/18 10:38) Hives losartan Adverse Reaction (Verified 09/13/18 10:38) Swelling DURACEF Adverse Reaction (Severe, Uncoded 09/13/18 10:38) Hives Primary Care Physician: Velia Archuleta MD [Primary Care Provider] - Past Medical History: - - Liver transplant, diabetes, hypertension, hypercholesterolemia Surgical History: appendectomy, cholecystectomy, herniorrhaphy - Incisional hernia repair 2008, hysterectomy, - - Liver transplant, splenectomy, hysterectomy, left knee surgery, removal of left ovary, total mouth extraction Lives: Spouse/ Significant Other Smoking Status: Never smoker - Family History Maternal Family History: Family History (Last Reviewed 11/19/17 @ 13:38 by Roxie Read) Mother Diabetes Anemia Father Hypertension LUNG/RESPIRATORY DISEASE Family History: Reports: Diabetes, Heart Disease Paternal Family History: Family History (Last Reviewed 11/19/17 @ 13:38 by Roxie Read) Mother Diabetes Anemia Father Hypertension LUNG/RESPIRATORY DISEASE Family History: Reports: Cancer, Heart Disease Sibling Family History: Family History (Last Reviewed 11/19/17 @ 13:38 by Roxie Read) Mother Diabetes Anemia Father Hypertension LUNG/RESPIRATORY DISEASE Family History: Reports: - - Cirrhosis Review of Systems General: Denies: Chills, Fever, Sweats Eyes: Reports: Visual changes - bilaterally. Denies: Diplopia ENT: Denies: Rhinorrhea, Sore throat Cardiovascular: Denies: Chest pain, Palpitations Respiratory: Denies: Dyspnea, Cough, Dyspnea on exertion Gastrointestinal: Reports: Abdominal pain. Denies: Nausea, Vomiting, Diarrhea, Melena, Hematochezia - Abdominal wall pain is in HPI Genitourinary: Denies: Dysuria, Hematuria, Frequency Musculoskeletal: Denies: Back pain, Extremity Pain Skin: Reports: Rash, Wounds, - - Abdominal wall cellulitis as in HPI Neurological: Denies: Headache, Weakness, Numbness Hematologic: Denies: Easy bruising Physical Exam Vital Signs/Narrative: Vital Signs Temp Pulse Resp BP Pulse Ox 09/13/18 11:06 18 09/13/18 10:36 98 F 81 18 147/66 H 98 General: Well nourished Eyes: Perrl Cardiovascular: Regular rate, Regular rhythm Respiratory: No distress Abdomen: Soft, - - Tenderness over skin examination of the abdomen no intra- abdominal pain. Back: Nontender, - - Tenderness over the right and slight left lower back region , however over the skin where her cellulitis is Extremities: Nontender Skin: - - Patient has slight erythema with increased pallor over her abdomen and lower back region. There is no crepitus no signs of necrotizing fasciitis at this time. Psychological: Normal affect Diagnostic/Tx/Re-eval - Medical Decision Making IV antibiotics were given. Patient appears well however she will need to be admitted for her abdominal wall cellulitis, she is immunocompromised but has a normal absolute neutrophil count. Admit stable condition ED Disposition - Plan for ED Patient: Diagnosis: Cellulitis of right abdominal wall Referrals: Velia Archuleta MD [Primary Care Provider] -
[2018-09-13] MEDS: Morphine 4 MG/ML Syringe IV (11:32)
[2018-09-13] MEDS: Ondansetron 4 MG/2 ML Vial IV (11:32)
[2018-09-13 11:45] LABS: Absolute Lymphocyte Count 0.51 X10^3/ul (0.83-4.51); Absolute Neutrophil Count 2.5 X10^3/uL (2.0-7.7); Basophil# 0.01 X10^3/uL; Basophil% 0.3 % (0-1); Eosinophils% 2.9 % (0-5); Hematocrit 29.9 % (37-47); Hemoglobin 9.2 g/dl (12.0-15.0); Lymphocyte # 0.51 X10^3/ul (4.0); Lymphocyte % 14.7 % (19-41); Mean Corp Hgb Conc 30.8 g/gl (32-36); Mean Corpuscular Volume 74.8 fL (81-99); Monocyte# 0.32 X10^3/uL; Monocyte% 9.2 % (0-10); Neutrophil % 72.3 % (47-70); Platelet Count 88 K/mm3 (150-450); RBC Distribution Width SD 51.9 fl (35.1-43.9); White Blood Count 3.5 K/mm3 (4.4-11.0)
[2018-09-13 11:46] LABS: POSITIVE COUNT NO; POSITIVE DIFFERENTIAL YES; POSITIVE MORPHOLOGY YES
[2018-09-13 11:47] LABS: Differential Indicated SCAN CRITERIA MET
[2018-09-13 11:53] LABS: ALB/GLOB Ratio 0.7 RATIO (0.9-2.4); AST(SGOT) 15 U/L (15-37); Alanine Aminotransfer ALT/SGPT 20 U/L (13-56); Albumin, Serum 2.7 g/dL (3.2-5.0); Alkaline Phosphatase 90 U/L (45-117); Anion Gap 7 (5-15); BUN 59 mg/dL (7-18); BUN/Creat Ratio 28.1 RATIO (10-20); Chloride 106 mmol/L (98-107); EST Glomerular Filtration Rate 25 mL/min (>60); Est Glom Filt Rate - Afr Amer 31 mL/min (>60); Estimated Creatinine Clearance 25.31 ml/min; Globulin 3.9 g/dL (2.2-4.2); Glucose 185 mg/dL (74-106); Potassium 4.1 mmol/L (3.5-5.1); Protein, Total 6.6 g/dL (6.4-8.2); Sodium Level 135 mmol/L (136-145)
[2018-09-13 12:07] LABS: Anisocytosis 1+; Hypochromasia 1+; Microcytosis 1+; Platelet Estimate MOD DEC (ADEQ); Platelet Morphology LARGE; Polychromasia 1+
--- NOTE | 2018-09-13 12:55 | PCM.HP.STD ---
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 2 days later, went to her primary care physician's office and received antibiotics with cephalexin and doxycycline. Today, the rash is extending up her back and just is painful. Patient has had cellulitis in similar regions in the similar presentation. Patient is also had diffuse zoster as well but this is a different presentation. 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) RLS (restless legs syndrome) (Chronic) Microcytic anemia (Chronic) Diabetes mellitus type 2 in obese (Chronic) S/P liver transplant (Chronic) uterine and cervical cancer (Chronic) Bilateral leg edema (Chronic) Immunocompromised patient (Chronic) Thrombocytopenia (Chronic) Anemia in chronic kidney disease (Chronic) 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) Pancytopenia (Chronic) Neutropenia (Chronic) Iron deficiency anemia (Chronic) CKD (chronic kidney disease), stage III (Chronic) Medical History: Medical History (Last Reviewed 09/13/18 @ 12:57 by Cralton Pollard DO) Chronic kidney disease, stage 3 N18.3 Diabetes E11.9 GERD (gastroesophageal reflux disease) K21.9 History of uterine cancer Z85.42 LIVER TRANSPLANT 2008 [facility] Sleep apnea G47.30 Hypertension I10 Allergies amlodipine [From Norvasc] Adverse Reaction (Severe, Verified 09/13/18 10:38) Hives ampicillin sodium [From Unasyn] Adverse Reaction (Severe, Verified 09/13/18 10:38) Hives buspirone HCl [From BuSpar] Adverse Reaction (Severe, Verified 09/13/18 10:38) Hives lisinopril Adverse Reaction (Severe, Verified 09/13/18 10:38) Swelling naproxen Adverse Reaction (Severe, Verified 09/13/18 10:38) Hives niacin [From Niaspan Extended-Release] Adverse Reaction (Severe, Verified 09/13/18 10:38) Hives omeprazole Adverse Reaction (Severe, Verified 09/13/18 10:38) Other stage 3 kidney failure UNABLE TO TAKE DUE TO TRANSPLALNT sulbactam sodium [From Unasyn] Adverse Reaction (Severe, Verified 09/13/18 10:38) Hives Sulfa (Sulfonamide Antibiotics) Adverse Reaction (Severe, Verified 09/13/18 10:38) Hives cephalexin [From Keflex] Adverse Reaction (Verified 09/13/18 10:38) Hives losartan Adverse Reaction (Verified 09/13/18 10:38) Swelling DURACEF Adverse Reaction (Severe, Uncoded 09/13/18 10:38) Hives Home Medications: Ambulatory Orders Medication Instructions Recorded Ascorbic Acid [Vitamin C] 1,000 mg PO DAILY 02/20/15 Cholecalciferol (VIT D3) [Vitamin 1,000 unit PO DAILY 02/20/15 D3] Ropinirole HCl [Requip] 1 mg PO BID 02/20/15 Sertraline HCl [Zoloft] 50 mg PO DAILY 02/20/15 Tacrolimus Anhydrous [Prograf] 0.5 mg PO DAILY 03/18/16 Trazodone HCl 100 mg PO QHS 03/18/16 Furosemide 60 mg PO BID 06/19/16 Levothyroxine [Synthroid] 25 mcg PO DAILY 06/19/16 Ferrous Sulfate [Iron] 325 mg PO DAILY 07/19/16 Sirolimus 1 mg PO DAILY 08/01/16 Labetalol [Trandate (Beta Dragan)] 600 mg PO BID 08/20/16 Atorvastatin Calcium [Lipitor] 10 mg PO QHS 10/19/16 Apremilast [Otezla] 30 mg PO BID 01/15/18 Cyanocobalamin (Vitamin B-12) 1,000 mcg PO DAILY 05/29/18 [Vitamin B-12] Insulin Aspart [Novolog Flexpen] 0 units SC TID 05/29/18 Insulin Aspart [Novolog Flexpen] 8 units SC BIDCM 05/29/18 Insulin Aspart [Novolog Flexpen] 14 units SC DINNER 05/29/18 Insulin Glargine,Hum.rec.anlog 40 unit SQ BID 05/29/18 [Lantus Solostar] Desoximetasone [Topicort] 60 gm TP PRN PRN 07/04/18 Cephalexin [Keflex] 500 mg PO Q12 #11 capsule 07/06/18 Desoximetasone [Topicort] 1 gm TP TID PRN PRN cream..g. 07/06/18 Doxycycline 100 mg PO BID #20 cap 08/17/18 Surgical History: Surgical History (Last Reviewed 09/13/18 @ 12:57 by Carlton Pollard DO) History of cholecystectomy Z90.49 2009 History of left knee surgery Z98.890 History of left salpingo-oophorectomy Z90.79, Z90.721 1989 BENIGN TUMOR History of radical hysterectomy Z90.710 History of splenectomy Z90.81 2009 History of ventral hernia repair Z98.890, Z87.19 Surgical History: appendectomy, cholecystectomy, herniorrhaphy - Incisional hernia repair 2008, hysterectomy, - - Liver transplant, splenectomy, hysterectomy, left knee surgery, removal of left ovary, total mouth extraction Psychiatric History: No pertinent psych hx [employer] WORK[employer] History: No pertinent [employer] WORKER history Lives: Spouse/ Significant Other Smoking Status: Never smoker - *Family History Maternal Family History: Family History (Last Reviewed 09/13/18 @ 12:57 by Carlton Pollard DO) Mother Diabetes Anemia Father Hypertension LUNG/RESPIRATORY DISEASE History Items: Diabetes, Heart Disease Paternal Family History: Family History (Last Reviewed 09/13/18 @ 12:57 by Carlton Pollard DO) Mother Diabetes Anemia Father Hypertension LUNG/RESPIRATORY DISEASE History Items: Cancer, Heart Disease Sibling Family History: Family History (Last Reviewed 09/13/18 @ 12:57 by Carlton Pollard DO) Mother Diabetes Anemia Father Hypertension LUNG/RESPIRATORY DISEASE History Items: - - Cirrhosis Review of Systems Constitutional: Reports: Chills, Malaise. Denies: Anorexia, Fever, Night Sweats Eyes: Denies: Blurred vision, Double vision HEENT: Denies: Head Aches, Sinus Congestion, Sinus Drainage Cardiovascular: Denies: Chest Pain, Palpitations Respiratory: Denies: Cough, Shortness of breath at rest, Sputum production Gastrointestinal: Denies: Abdominal Pain, Nausea, Vomiting Genitourinary: Denies: Dysuria Musculoskeletal: Denies: Joint Pain, Joint Tenderness Skin: Reports: Rash, Skin Changes Neurological: Denies: Numbness, Tingling, Focal weakness Psychiatric: Denies: Anxiety, Depression, Homicidal Ideations, Suicidal Ideations Hematologic/ Lymphatic: Denies: Easy Bruising, Easy Bleeding Comment: A 10 point review of systems were negative except as mentioned in the history of present illness and the other review of systems. VTE Information - Inpt Only VTE Present on Admission: No VTE Mechan Device Prophylaxis: None VTE Pharm Prophylaxis ordered?: Yes Patient Problems: Active and Suspected Problems (Last Reviewed 11/19/17 @ 13:38 by Roxie Read) Cellulitis of right abdominal wall (Acute) - Physical Exam General: Alert, No apparent distress HEENT: Atraumatic, Normocephalic Oral: Moist Mucosa, No Gingival or Mucosal Lesions/ Ulcerations Neck: No Nodes, Thyroid Normal Size and Texture Lungs: Clear to auscultation, Normal air movement, No rhonchi, No wheeze, No rales Cardiovascular: Regular rate, Regular Rhythm, Normal S1, Normal S2, No murmurs Abdomen: Bowel Sounds Present, Soft, Non Tender, Non-Distended, Obese Extremities: No edema, No Calf Tenderness Skin: - - Faint rash extending from her right groin, lower abdomen and extending into her back. Tender palpation. No induration noted no purulent lesions noted. Musculoskeletal: No Tenderness to Palpation of Joints or Extremities, No Muscle Wasting Neurological: Muscle tone normal, Coordination normal Psych/Mental Status: Normal Affect, Appropriate Vital Signs Temp Pulse Resp BP Pulse Ox 36.6 C 81 18 147/66 H 98 09/13/18 10:36 09/13/18 10:36 09/13/18 11:06 09/13/18 10:36 09/13/18 10:36 Oxygen Delivery Method Room Air Weight: 111.584 kg Body Mass Index (BMI) 40.9 Finger Stick Blood Glucose 427 Laboratory Tests Past 24 Hrs 09/13/18 09/13/18 11:30 11:30 WBC 3.5 L RBC 4.00 L Hgb 9.2 L Hct 29.9 L MCV 74.8 L MCH 23.0 L MCHC 30.8 L RDW 19.0 H RDW Differential 51.9 H Plt Count 88 L MPV TNP Immature Gran % (Auto) 0.600 Neut % (Auto) 72.3 H Lymph % (Auto) 14.7 L [place] % (Auto) 9.2 Eos % (Auto) 2.9 Baso % (Auto) 0.3 Absolute Neuts (auto) 2.5 Absolute Lymphs (auto) 0.51 L Total Counted Not Reportable Platelet Estimate MOD DEC Plt Morphology Comment LARGE Polychromasia 1+ Hypochromasia 1+ Anisocytosis 1+ Microcytosis 1+ Sodium 135 L Potassium 4.1 Chloride 106 Carbon Dioxide 22.0 Anion Gap 7 BUN 59 H Creatinine 2.10 H Estim Creat Clear Calc 25.31 Est GFR (MDRD) Af Amer 31 L Est GFR (MDRD) Non-Af 25 L BUN/Creatinine Ratio 28.1 H Glucose 185 H Calcium 8.0 L Total Bilirubin 0.50 AST 15 ALT 20 Alkaline Phosphatase 90 Total Protein 6.6 Albumin 2.7 L Globulin 3.9 Albumin/Globulin Ratio 0.7 L Assessment/Plan All Active Problems (Last Reviewed 11/19/17 @ 13:38 by Roxie Read) Severe sepsis (Resolved) Dehydration (Resolved) Acute kidney injury superimposed on chronic kidney disease (Resolved) Diastolic CHF, acute (Resolved) Hypomagnesemia (Resolved) Acute respiratory failure with hypoxia (Resolved) Pleural effusion (Resolved) Cellulitis (Resolved) Diabetic foot ulcer (Resolved) Foreign body in right foot with infection (Resolved) Right foot pain (Resolved) Cellulitis of right abdominal wall (Acute) HOFFMAN (nonalcoholic steatohepatitis) (Resolved) 1. Cellulitis The lesion is very faint overall not specific concern that she is in defervesce but agreed to admitting patient being that she was on antibiotics for about 48 hours prior to presentation given her immunocompromise state, I think it is reasonable to place patient on IV vancomycin and monitor. 2. Status post a liver transplant Continue with tacrolimus, sirolimus Follow-up with her transplant doctor as outpatient 3. Diabetes mellitus type 2 Continue with basal, prandial and sliding scale insulin 4. VTE prophylaxis with Lovenox as patient is moderate risk 5. Advanced care planning: Discussed with patient and her about CPR and ventilator. Patient wishes to be full code at this time. Code Visit Inpatient E&M: 90405 Init Hosp L3
[2018-09-13 14:07] VITALS: BMI 42.3
[2018-09-13 14:09] VITALS: BP 145/77; PULSE 74; RESP 18; TEMP 36.6; O2SAT 100
[2018-09-13 15:01] LABS: Bedside Glucose 120 mg/dL (70-110)
--- NOTE | 2018-09-13 15:15 | PCM.RX.CS ---
Consult Pharmacy has been consulted to manage selected antiobiotic: Vancomycin Type of Consult: New start Suspected Infection: Skin/Soft tissue Prior Doses of Antibiotics Received/Current Regimen: VANCOMYCIN 1500MG IV X1 IN ED 09/13 @1150 Labs: Sodium 135 mmol/L (136-145) L 09/13/18 11:30 Potassium 4.1 mmol/L (3.5-5.1) 09/13/18 11:30 Chloride 106 mmol/L (98-107) 09/13/18 11:30 Carbon Dioxide 22.0 mmol/L (21.0-32.0) 09/13/18 11:30 7 (5-15) 09/13/18 11:30 BUN 59 mg/dL (7-18) H 09/13/18 11:30 2.10 mg/dL (0.55-1.02) H 09/13/18 11:30 Est GFR (MDRD) Af Amer 31 mL/min (>60) L 09/13/18 11:30 Est GFR (MDRD) Non-Af 25 mL/min (>60) L 09/13/18 11:30 28.1 RATIO (10-20) H 09/13/18 11:30 Glucose 185 mg/dL (74-106) H 09/13/18 11:30 Weight used for dosin.3 kg Estimated Creatinine Clearance: 25ML/MIN Goal Trough: 15-20 mcg/mL Pharmacy Plan for Drug Dosing: PLAN/RECOMMENDATIONS 1. Vancomycin 1250mg q24hr to start 09/14/18 @1200 2. Trough scheduled prior to 3rd total dose per protocol 09/15/18 @1130 3. Pharmacy Service will continue to monitor and adjust dosing as required.
[2018-09-13] MEDS: Furosemide 40 MG Tablet 60 MG PO (16:42)
[2018-09-13 17:15] LABS: Bedside Glucose 121 mg/dL (70-110)
[2018-09-13] MEDS: SIROLIMUS 1 MG TABLET PO (18:18)
[2018-09-13 19:55] VITALS: BP 149/75; PULSE 71; RESP 16; TEMP 36.8; O2SAT 100
[2018-09-13] MEDS: Pramipexole Di-HCl 0.5 MG Tablet PO (21:28)
[2018-09-13] MEDS: Labetalol 200 MG Tablet 600 MG PO (21:28)
[2018-09-13] MEDS: traZODone 100 MG Tablet PO (21:29)
[2018-09-13] MEDS: Atorvastatin Calcium 10 MG Tablet PO (21:29)
[2018-09-13 21:40] LABS: Bedside Glucose 118 mg/dL (70-110)
[2018-09-13 22:46] LABS: Bedside Glucose 109 mg/dL (70-110)
[2018-09-14 04:12] VITALS: BP 145/76; PULSE 66; RESP 18; TEMP 36.5; O2SAT 99
[2018-09-14] MEDS: Levothyroxine 25 MCG TABLET PO (06:09)
[2018-09-14 06:21] LABS: Bedside Glucose 114 mg/dL (70-110)
[2018-09-14 06:33] LABS: Anion Gap 8 (5-15); BUN 58 mg/dL (7-18); BUN/Creat Ratio 28.9 RATIO (10-20); Calcium,Total 8.1 mg/dL (8.5-10.1); Chloride 108 mmol/L (98-107); Creatinine, Serum 2.01 mg/dL (0.55-1.02); EST Glomerular Filtration Rate 27 mL/min (>60); Est Glom Filt Rate - Afr Amer 32 mL/min (>60); Estimated Creatinine Clearance 26.45 ml/min; Glucose 100 mg/dL (74-106); Potassium 4.3 mmol/L (3.5-5.1); Sodium Level 139 mmol/L (136-145)
[2018-09-14 07:05] LABS: Absolute Neutrophil Count 1.9 X10^3/uL (2.0-7.7); Basophil# 0.01 X10^3/uL; Basophil% 0.3 % (0-1); Eosinophil# 0.18 X10^3/uL; Eosinophils% 6.1 % (0-5); Hematocrit 29.1 % (37-47); Hemoglobin 8.7 g/dl (12.0-15.0); Lymphocyte % 16.9 % (19-41); Mean Corp Hgb Conc 29.9 g/gl (32-36); Mean Corpuscular Hgb 22.7 pg (27.0-32.0); Mean Platelet Vol. 9.6 fl (6.2-12.0); Monocyte# 0.35 X10^3/uL; Monocyte% 11.8 % (0-10); Neutrophil # 1.88 X10^3/uL (2.7-7.7); Neutrophil % 63.5 % (47-70); Platelet Count 89 K/mm3 (150-450); RBC Distribution Width CV 19.1 % (11.6-14.6); RBC Distribution Width SD 53.6 fl (35.1-43.9); Red Blood Count 3.83 M/mm3 (4.2-5.4)
[2018-09-14 07:08] LABS: Differential Indicated SCAN CRITERIA MET; POSITIVE COUNT NO; POSITIVE DIFFERENTIAL YES; POSITIVE MORPHOLOGY YES
[2018-09-14 07:48] LABS: Hypochromasia RARE; Platelet Estimate MOD DEC (ADEQ); Platelet Morphology LARGE; Polychromasia RARE
[2018-09-14 07:49] LABS: Microcytosis RARE
[2018-09-14] MEDS: Ferrous Sulfate 325 MG Tablet PO (08:13)
[2018-09-14] MEDS: Insulin Lispro 100 UNIT/ML INSULN.PEN 8 UNIT SC (08:17)
[2018-09-14] MEDS: oxyCODONE 5 MG Tablet PO (08:25)
[2018-09-14 09:25] VITALS: BP 145/74; PULSE 69; RESP 16; TEMP 36.3; O2SAT 99
[2018-09-14] MEDS: Labetalol 200 MG Tablet 600 MG PO ×2 (09:34→22:09)
[2018-09-14] MEDS: Pramipexole Di-HCl 0.5 MG Tablet PO ×2 (09:34→22:10)
[2018-09-14] MEDS: Furosemide 40 MG Tablet 60 MG PO ×2 (09:34→16:16)
[2018-09-14] MEDS: Ascorbic Acid 500 MG Tablet 1000 MG PO (09:34)
[2018-09-14] MEDS: Sertraline 50 MG Tablet PO (09:34)
[2018-09-14] MEDS: Cyanocobalamin 500 MCG Tablet 1000 MCG PO (09:35)
--- NOTE | 2018-09-14 10:21 | PN_ITS ---
Patient Problems: Active and Suspected Problems (Last Reviewed 09/13/18 @ 12:57 by Carlton Pollard DO) Cellulitis of right abdominal wall (Acute) Subjective: still with pain, warmth of flanks, back and groin. Vitals/I&O's: Vital Signs Temp Pulse Resp BP Pulse Ox 36.3 C L 69 16 145/74 H 99 09/14/18 09:25 09/14/18 09:25 09/14/18 09:25 09/14/18 09:25 09/14/18 09:25 Oxygen Delivery Method Room Air Weight: 115.3 kg Body Mass Index (BMI) 42.3 Finger Stick Blood Glucose 427 Intake and Output for Last 24 Hours 09/12/18 09/13/18 09/14/18 23:59 23:59 23:59 Intake Total 250 / 250 602 / 602 Balance 250 / 250 602 / 602 General: Alert, No apparent distress HEENT: Atraumatic, Normocephalic Oral: Moist Mucosa, No Gingival or Mucosal Lesions/ Ulcerations Neck: No Nodes, Thyroid Normal Size and Texture Lungs: Clear to auscultation, Normal air movement, No rhonchi, No wheeze Abdomen: Obese Extremities: No edema, No Calf Tenderness Skin: - - Resolving erythema of the back, flanks and groin. Fainter than it was yesterday and withdrawn from the line of demarcation though still warm and tender. No fluctuance appreciated. Psych/Mental Status: Normal Affect, Appropriate Laboratory Results 09/13/18 11:30: WBC 3.5 L, RBC 4.00 L, Hgb 9.2 L, Hct 29.9 L, MCV 74.8 L, MCH 23.0 L, MCHC 30.8 L, RDW 19.0 H, RDW Differential 51.9 H, Plt Count 88 L, MPV TNP, Immature Gran % (Auto) 0.600, Neut % (Auto) 72.3 H, Lymph % (Auto) 14.7 L, [place] % (Auto) 9.2, Eos % (Auto) 2.9, Baso % (Auto) 0.3, Absolute Neuts (auto) 2.5, Absolute Lymphs (auto) 0.51 L, Total Counted Not Reportable, Platelet Estimate MOD DEC, Plt Morphology Comment LARGE, Polychromasia 1+, Hypochromasia 1+, Anisocytosis 1+, Microcytosis 1+ 09/13/18 11:30: Sodium 135 L, Potassium 4.1, Chloride 106, Carbon Dioxide 22.0, Anion Gap 7, BUN 59 H, Creatinine 2.10 H, Estim Creat Clear Calc 25.31, Est GFR (MDRD) Af Amer 31 L, Est GFR (MDRD) Non-Af 25 L, BUN/Creatinine Ratio 28.1 H, Glucose 185 H, Calcium 8.0 L, Total Bilirubin 0.50, AST 15, ALT 20, Alkaline Phosphatase 90, Total Protein 6.6, Albumin 2.7 L, Globulin 3.9, Albumin/Globulin Ratio 0.7 L 09/13/18 14:40: POC Glucose 120 H 09/13/18 17:09: POC Glucose 121 H 09/13/18 21:32: POC Glucose 118 H 09/13/18 22:40: POC Glucose 109 09/14/18 05:50: WBC 3.0 L, RBC 3.83 L, Hgb 8.7 L, Hct 29.1 L, MCV 76.0 L, MCH 2 2.7 L, MCHC 29.9 L, RDW 19.1 H, RDW Differential 53.6 H, Plt Count 89 L, MPV 9.6, Immature Gran % (Auto) 1.400 H, Neut % (Auto) 63.5, Lymph % (Auto) 16.9 L, [place] % (Auto) 11.8 H, Eos % (Auto) 6.1 H, Baso % (Auto) 0.3, Absolute Neuts (auto) 1.9 L, Absolute Lymphs (auto) 0.50 L, Total Counted Not Reportable, Platelet Estimate MOD DEC, Plt Morphology Comment LARGE, Polychromasia RARE, Hypochromasia RARE, Microcytosis RARE 09/14/18 05:50: Sodium 139, Potassium 4.3, Chloride 108 H, Carbon Dioxide 23.0, Anion Gap 8, BUN 58 H, Creatinine 2.01 H, Estim Creat Clear Calc 26.45, Est GFR (MDRD) Af Amer 32 L, Est GFR (MDRD) Non-Af 27 L, BUN/Creatinine Ratio 28.9 H, Glucose 100, Calcium 8.1 L 09/14/18 06:10: POC Glucose 114 H Current Medications Acetaminophen (Tylenol) 650 mg PO Q6H PRN PRN PRN Reason: Mild Pain (1-3)/Temp > 100.7 F Ascorbic Acid (Vitamin C) 1,000 mg PO DAILY [facility] Last Admin: 09/14/18 09:34 Dose: 1,000 mg Documented by: Atorvastatin Calcium (Lipitor) 10 mg PO QHS [facility] Last Admin: 09/13/18 21:29 Dose: 10 mg Documented by: Cholecalciferol (Vitamin D) 1,000 unit PO DAILY [facility] Last Admin: 09/14/18 09:34 Dose: 1,000 unit Documented by: Clobetasol Propionate (Temovate Cream ([facility])) 1 applic TOPICAL TID PRN PRN PRN Reason: ITCHING Cyanocobalamin (Vitamin B12) 1,000 mcg PO DAILY [facility] Last Admin: 09/14/18 09:35 Dose: 1,000 mcg Documented by: Dextrose (D50w Syringe) 0 gm IV X1 PRN; Protocol PRN Reason: Hypoglycemia Enoxaparin Sodium (Lovenox) 30 mg SC DAILY@1000 [facility] Last Admin: 09/14/18 09:27 Dose: Not Given Documented by: Ferrous Sulfate (Ferrous Sulfate) 325 mg PO DAILYCM [facility] Last Admin: 09/14/18 08:13 Dose: 325 mg Documented by: Furosemide (Lasix) 60 mg PO BIDLX [facility] Last Admin: 09/14/18 09:34 Dose: 60 mg Documented by: Glucagon () 1 mg IM .X1 PRN PRN Reason: Hypoglycemia Vancomycin IV Pharmacy to Dose (1 ea/ Sodium Chloride) 500 mls @ 250 mls/hr IV PRN PRN; Protocol PRN Reason: Rx to Dose Vancomycin HCl 1,250 mg/ (Sodium Chloride) 275 mls @ 167 mls/hr IV Q24H [facility] Sodium Chloride () 250 mls @ 15 mls/hr IV .[id number] PRN PRN Reason: SALINE FLUSH Insulin Glargine (Lantus ([facility])) 40 units SC BID [facility] Last Admin: 09/13/18 21:34 Dose: 40 u Documented by: Insulin Human Lispro (Humalog Kwikpen ([facility])) 14 unit SC DINNER [facility] Last Admin: 09/13/18 17:10 Dose: Not Given Documented by: Insulin Human Lispro (Humalog Kwikpen ([facility])) 8 unit SC 0800,1200 [facility] Last Admin: 09/14/18 08:17 Dose: 8 u Documented by: Insulin Human Lispro (Humalog Kwikpen ([facility])) 0 unit SC TIDAC [facility]; Protocol Last Admin: 09/14/18 06:11 Dose: Not Given Documented by: Labetalol HCl (Trandate) 600 mg PO BID [facility] Last Admin: 09/14/18 09:34 Dose: 600 mg Documented by: Levothyroxine Sodium (Synthroid) 25 mcg PO DAILY@0600 [facility] Last Admin: 09/14/18 06:09 Dose: 25 mcg Documented by: Ondansetron HCl (Zofran) 4 mg IV Q8H PRN PRN PRN Reason: NAUSEA/VOMITING Oxycodone HCl (Oxyir) 5 mg PO Q4H PRN PRN PRN Reason: Moderate Pain (4-6/10) Last Admin: 09/14/18 08:25 Dose: 5 mg Documented by: Pramipexole Dihydrochloride (Mirapex) 0.5 mg PO BID [facility] Last Admin: 09/14/18 09:34 Dose: 0.5 mg Documented by: Sertraline HCl (Zoloft) 50 mg PO DAILY [facility] Last Admin: 09/14/18 09:34 Dose: 50 mg Documented by: Sirolimus (Rapamune) 1 mg PO DAILY@1200 [facility] Sodium Chloride () 10 - 40 ml IV UD PRN PRN Reason: SALINE FLUSH Tacrolimus (Prograf) 0.5 mg PO DAILY@0800 [facility] Last Admin: 09/14/18 08:19 Dose: 0.5 mg Documented by: Trazodone HCl (Desyrel) 100 mg PO QHS [facility] Last Admin: 09/13/18 21:29 Dose: 100 mg Documented by: Medical Necessity - Tobacco Use Smoking Status: Never smoker Assessment/Plan All Active Problems (Last Reviewed 09/13/18 @ 12:57 by Carlton Pollard DO) Severe sepsis (Resolved) Dehydration (Resolved) Acute kidney injury superimposed on chronic kidney disease (Resolved) Diastolic CHF, acute (Resolved) Hypomagnesemia (Resolved) Acute respiratory failure with hypoxia (Resolved) Pleural effusion (Resolved) Cellulitis (Resolved) Diabetic foot ulcer (Resolved) Foreign body in right foot with infection (Resolved) Right foot pain (Resolved) Cellulitis of right abdominal wall (Acute) HOFFMAN (nonalcoholic steatohepatitis) (Resolved) 1. Cellulitis * Improved slightly * the lesion is very faint overall not specific concern that she is in defervesce but agreed to admitting patient being that she was on antibiotics for about 48 hours prior to presentation given her immunocompromise state, I think it is reasonable to place patient on IV vancomycin and monitor. * Consult infectious disease for outpatient recommendations. Patient was already on doxycycline for 48 hours prior to arrival additionally, patient has numerous medication allergies to ampicillin, sulfa, cephalexin. 2. Status post a liver transplant * Continue with tacrolimus, sirolimus * Follow-up with her transplant doctor as outpatient 3. Diabetes mellitus type 2 * Continue with basal, prandial and sliding scale insulin 4. VTE prophylaxis with Lovenox as patient is moderate risk 5. Advanced care planning: Discussed with patient and her about CPR and ventilator. Patient wishes to be full code at this time. Code Visit Inpatient E&M: 40642 Subs Hosp L2
[2018-09-14] MEDS: SIROLIMUS 1 MG TABLET PO (12:10)
[2018-09-14 12:21] LABS: Bedside Glucose 109 mg/dL (70-110)
[2018-09-14 16:07] VITALS: BP 152/81; PULSE 69; RESP 16; TEMP 36.4; O2SAT 98
[2018-09-14 16:46] LABS: Bedside Glucose 118 mg/dL (70-110)
[2018-09-14] MEDS: 0.9% NaCl Peripheral Flush Adult/Peds IV (18:46)
[2018-09-14 22:00] VITALS: BP 156/63; PULSE 71; RESP 16; TEMP 36.5; O2SAT 100
[2018-09-14] MEDS: Atorvastatin Calcium 10 MG Tablet PO (22:10)
[2018-09-14] MEDS: traZODone 100 MG Tablet PO (22:10)
[2018-09-14 22:31] LABS: Bedside Glucose 147 mg/dL (70-110)
[2018-09-15] MEDS: 0.9% NaCl IVPB Med Flush (250 mL) 15 ML IV ×2 (00:25→21:38)
[2018-09-15 02:00] VITALS: BP 122/51; PULSE 68; RESP 16; TEMP 36.5; O2SAT 98
[2018-09-15] MEDS: Levothyroxine 25 MCG TABLET PO (06:15)
[2018-09-15 06:16] LABS: Anion Gap 5 (5-15); BUN 60 mg/dL (7-18); BUN/Creat Ratio 29.6 RATIO (10-20); Chloride 107 mmol/L (98-107); Creatinine, Serum 2.03 mg/dL (0.55-1.02); EST Glomerular Filtration Rate 26 mL/min (>60); Est Glom Filt Rate - Afr Amer 32 mL/min (>60); Estimated Creatinine Clearance 26.19 ml/min; Glucose 122 mg/dL (74-106); Potassium 4.4 mmol/L (3.5-5.1); Sodium Level 136 mmol/L (136-145)
[2018-09-15 06:25] LABS: Hematocrit 29.3 % (37-47); Hemoglobin 8.7 g/dl (12.0-15.0); Mean Corp Hgb Conc 29.7 g/gl (32-36); Mean Corpuscular Hgb 22.6 pg (27.0-32.0); Mean Corpuscular Volume 76.1 fL (81-99); Mean Platelet Vol. 11.2 fl (6.2-12.0); Platelet Count 110 K/mm3 (150-450); RBC Distribution Width CV 19.2 % (11.6-14.6); RBC Distribution Width SD 51.6 fl (35.1-43.9); Red Blood Count 3.85 M/mm3 (4.2-5.4); White Blood Count 3.3 K/mm3 (4.4-11.0)
[2018-09-15 06:40] LABS: Differential Indicated MANUAL DIFF; POSITIVE COUNT YES; POSITIVE DIFFERENTIAL YES; POSITIVE MORPHOLOGY YES
[2018-09-15 06:40] LABS: Bedside Glucose 131 mg/dL (70-110)
[2018-09-15 07:40] LABS: Eosinophil 9 % (0-5); Lymphocyte 11 % (19-41); Monocyte 4 % (0-10); Neutrophil-Band 1 % (0-5); Neutrophil-Segmented 75 % (47-70); Total Cells Counted 100 (MANUAL DIFF)
[2018-09-15 07:41] LABS: Basophilic Stippling RARE; Hypochromasia 1+; Microcytosis 1+; Platelet Estimate SLT DEC (ADEQ)
[2018-09-15 07:42] LABS: Absolute Lymphocyte Count 0.36 X10^3/ul (0.83-4.51); Absolute Neutrophil Count 2.5 X10^3/uL (2.0-7.7)
[2018-09-15 08:00] VITALS: BP 150/69; PULSE 66; RESP 16; TEMP 36.4; O2SAT 99
[2018-09-15] MEDS: Ferrous Sulfate 325 MG Tablet PO (08:17)
[2018-09-15] MEDS: Furosemide 40 MG Tablet 60 MG PO ×2 (08:33→17:25)
[2018-09-15] MEDS: Pramipexole Di-HCl 0.5 MG Tablet PO ×2 (08:34→22:45)
[2018-09-15] MEDS: Ascorbic Acid 500 MG Tablet 1000 MG PO (08:36)
[2018-09-15] MEDS: Labetalol 200 MG Tablet 600 MG PO ×2 (08:36→22:43)
[2018-09-15] MEDS: Cyanocobalamin 500 MCG Tablet 1000 MCG PO (08:36)
[2018-09-15] MEDS: Sertraline 50 MG Tablet PO (08:37)
[2018-09-15 08:51] LABS: Bedside Glucose 117 mg/dL (70-110)
--- NOTE | 2018-09-15 10:22 | CASEMGMT ---
RN CM Assessment Introduced role of RN CM to patient and patient Don at bedside.? Patient is alert, oriented and able?to participate in RN CM Assessment. ?Care providers, pharmacy, and demographics verified. Presentation: On Outpatient ABX Doxycycline for Cellulitis Abd Wall. This has worsened. Admit Dx: Cellulitis Re-Admit: No, ER- 08/17/18 for rt foot pain (patient states Gout), Inpt 07/04/18-07/06/18 for Cellulitis. Barriers/Issues: None. Patient states did f/u with ID which just did blood work and PCP after last hospital DC PCP: Velia Archuleta Specialists: Hem- Dr Barger, Nephro- Dr Strickland, [facility] Preferred Pharmacy: [facility] Insurance: [employer] [facility] [employer] Rx Benefit:?Yes ?LNOK: Carlos Guerrier LW/HPOA: Yes, aware not on file, HPOA- Carlos Guerrier Living Arrangements:?Lives with her in a upper level apartment, states 14 steps to get to apartment. ADL?s: Independent with ambulation and ADLs Transportation: Patient drives, to drive on Transport DME: CPAP- does not wear since she had [place] Palsy, States makes her feel Claustrophobic. Neb, Glucometer, Shower Chair- Needs a new one, aware not a covered DME item and self purchase. Rollator, Electric WC. HHC: Past- thinks w/[facility] (Did not care for this Agency). If HH needed, no Preference. SNF: None Goal: Home, states discussed possible Home IV ABX, prefers HH IV Abx over driving to infusion Ctr. Has no preference on HH Agency or Infusion Pharmacy. Denies any other issues, concerns, or questions. DC PLAN: Home with possible IV ABX. LILY Berman
[2018-09-15] MEDS: SIROLIMUS 1 MG TABLET PO (11:25)
[2018-09-15] MEDS: Insulin Lispro 100 UNIT/ML INSULN.PEN 8 UNIT SC (11:25)
[2018-09-15 11:35] LABS: Bedside Glucose 164 mg/dL (70-110)
[2018-09-15 12:22] LABS: Vancomycin, Trough Level 18.1 ug/mL (5.0-15.0)
--- NOTE | 2018-09-15 12:28 | PCM.RX.CS ---
Consult Pharmacy has been consulted to manage selected antiobiotic: Vancomycin Type of Consult: Follow-up Suspected Infection: Skin/Soft tissue Prior Doses of Antibiotics Received/Current Regimen: Medications Vancomycin HCl 1,250 mg/ (Sodium Chloride) 275 mls @ 167 mls/hr IV Q24H [facility] Last Admin: 09/14/18 12:13 Dose: 167 mls/hr Documented by: Labs: Sodium 136 mmol/L (136-145) 09/15/18 05:20 Potassium 4.4 mmol/L (3.5-5.1) 09/15/18 05:20 Chloride 107 mmol/L (98-107) 09/15/18 05:20 Carbon Dioxide 24.0 mmol/L (21.0-32.0) 09/15/18 05:20 5 (5-15) 09/15/18 05:20 BUN 60 mg/dL (7-18) H 09/15/18 05:20 2.03 mg/dL (0.55-1.02) H 09/15/18 05:20 Est GFR (MDRD) Af Amer 32 mL/min (>60) L 09/15/18 05:20 Est GFR (MDRD) Non-Af 26 mL/min (>60) L 09/15/18 05:20 29.6 RATIO (10-20) H 09/15/18 05:20 Glucose 122 mg/dL (74-106) H 09/15/18 05:20 Vancomycin Trough 18.1 ug/mL (5.0-15.0) H 09/15/18 11:35 Weight used for dosin.3 kg Estimated Creatinine Clearance: 26 Goal Trough: 15-20 mcg/mL Pharmacy Plan for Drug Dosing: The vancomycin trough level returned in range at 18.1 (goal 15-20). The current dose will continue and another trough will be checked in 4 days. Pharmacy Service will continue to monitor and adjust dosing as required. Follow-Up Labs: Trough Vancomycin - Draw 30 minutes before dose due Labs to be done on [date and time ordered]: 09/19/18 2235
--- NOTE | 2018-09-15 12:55 | PCM.HP.ID ---
Problem List (1) Cellulitis of right abdominal wall Status: Acute Reason for Consult: cellulitis Consulted by: Dr. Armenta History of Present Illness: The patient is a 63 year old F with h/o liver transplant at [facility] for HOFFMAN, no h/o OI or rejection, on tacro/rapa with stable doses. Reports 4 episodes of back/flank redness, pain since May. No clear inciting events, denies new soap/detergent, no irritating clothes, no long car rides. Had h/o shingles as well this past spring on her chest and upper back. No blisters or drainage with this rash. Typically resolves after being on doxy for about a week. Sx started 4-5 days ago, started on doxy again 09/11, saw derm, sx continued to progress, mild fever, some n/v, came to ED 09/13. Admitted on vanc, rash nearly gone, still some pain, no more fever or nausea. Full ROS performed and neg except as noted above. 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) RLS (restless legs syndrome) (Chronic) Microcytic anemia (Chronic) Diabetes mellitus type 2 in obese (Chronic) S/P liver transplant (Chronic) uterine and cervical cancer (Chronic) Bilateral leg edema (Chronic) Immunocompromised patient (Chronic) Thrombocytopenia (Chronic) Anemia in chronic kidney disease (Chronic) 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) Pancytopenia (Chronic) Neutropenia (Chronic) Iron deficiency anemia (Chronic) CKD (chronic kidney disease), stage III (Chronic) Allergies/Adverse Reactions: Allergies amlodipine [From Norvasc] Adverse Reaction (Severe, Verified 09/13/18 10:38) Hives ampicillin sodium [From Unasyn] Adverse Reaction (Severe, Verified 09/13/18 10:38) Hives buspirone HCl [From BuSpar] Adverse Reaction (Severe, Verified 09/13/18 10:38) Hives lisinopril Adverse Reaction (Severe, Verified 09/13/18 10:38) Swelling naproxen Adverse Reaction (Severe, Verified 09/13/18 10:38) Hives niacin [From Niaspan Extended-Release] Adverse Reaction (Severe, Verified 09/13/18 10:38) Hives omeprazole Adverse Reaction (Severe, Verified 09/13/18 10:38) Other stage 3 kidney failure UNABLE TO TAKE DUE TO TRANSPLALNT sulbactam sodium [From Unasyn] Adverse Reaction (Severe, Verified 09/13/18 10:38) Hives Sulfa (Sulfonamide Antibiotics) Adverse Reaction (Severe, Verified 09/13/18 10:38) Hives cephalexin [From Keflex] Adverse Reaction (Verified 09/13/18 10:38) Hives losartan Adverse Reaction (Verified 09/13/18 10:38) Swelling DURACEF Adverse Reaction (Severe, Uncoded 09/13/18 10:38) Hives Home Medications: Ambulatory Orders Medication Instructions Recorded Ascorbic Acid [Vitamin C] 1,000 mg PO DAILY 02/20/15 Cholecalciferol (VIT D3) [Vitamin 1,000 unit PO DAILY 02/20/15 D3] Ropinirole HCl [Requip] 1 mg PO BID 02/20/15 Sertraline HCl [Zoloft] 50 mg PO DAILY 02/20/15 Tacrolimus Anhydrous [Prograf] 0.5 mg PO DAILY 03/18/16 Trazodone HCl 100 mg PO QHS 03/18/16 Furosemide 60 mg PO BID 06/19/16 Levothyroxine [Synthroid] 25 mcg PO DAILY 06/19/16 Ferrous Sulfate [Iron] 325 mg PO DAILY 07/19/16 Sirolimus 1 mg PO DAILY 08/01/16 Labetalol [Trandate (Beta Dragan)] 600 mg PO BID 08/20/16 Atorvastatin Calcium [Lipitor] 10 mg PO QHS 10/19/16 Apremilast [Otezla] 30 mg PO BID 01/15/18 Cyanocobalamin (Vitamin B-12) 1,000 mcg PO DAILY 05/29/18 [Vitamin B-12] Insulin Aspart [Novolog Flexpen] 0 units SC TID 05/29/18 Insulin Aspart [Novolog Flexpen] 8 units SC BIDCM 05/29/18 Insulin Aspart [Novolog Flexpen] 14 units SC DINNER 05/29/18 Insulin Glargine,Hum.rec.anlog 40 unit SQ BID 05/29/18 [Lantus Solostar] Desoximetasone [Topicort] 60 gm TP PRN PRN 07/04/18 Cephalexin [Keflex] 500 mg PO Q12 #11 capsule 07/06/18 Desoximetasone [Topicort] 1 gm TP TID PRN PRN cream..g. 07/06/18 Doxycycline 100 mg PO BID #20 cap 08/17/18 - Social History Tobacco Use: non-smoker Vital Signs Temp Pulse Resp BP Pulse Ox 97.5 F L 66 16 150/69 H 99 09/15/18 08:00 09/15/18 08:00 09/15/18 08:00 09/15/18 08:00 09/15/18 08:00 Oxygen Delivery Method Room Air Weight: 115.3 kg Body Mass Index (BMI) 42.3 Finger Stick Blood Glucose 427 Laboratory Tests Past 24 Hrs 09/15/18 09/15/18 09/15/18 05:20 05:20 11:35 WBC 3.3 L RBC 3.85 L Hgb 8.7 L Hct 29.3 L MCV 76.1 L MCH 22.6 L MCHC 29.7 L RDW 19.2 H RDW Differential 51.6 H Plt Count 110 L MPV 11.2 Neut % (Auto) Not Reportable Absolute Neuts (auto) 2.5 Absolute Lymphs (auto) 0.36 L Total Counted 100 Neutrophils % (Manual) 75 H Band Neutrophils % 1 Lymphocytes % (Manual) 11 L Monocytes % (Manual) 4 Eosinophils % (Manual) 9 H Diff Path Review May foll Platelet Estimate SLT DEC Hypochromasia 1+ Basophilic Stippling RARE Microcytosis 1+ Sodium 136 Potassium 4.4 Chloride 107 Carbon Dioxide 24.0 Anion Gap 5 BUN 60 H Creatinine 2.03 H Estim Creat Clear Calc 26.19 Est GFR (MDRD) Af Amer 32 L Est GFR (MDRD) Non-Af 26 L BUN/Creatinine Ratio 29.6 H Glucose 122 H Calcium 8.0 L Vancomycin Trough 18.1 H - Other Studies Radiology: [] reviewed Other Studies: [] Route of nutrition/ use of supplements: [] Nutritional Intake: [] IV Site: [] Paz Catheter: [] - Physical Exam General: Alert, Oriented x3, Cooperative, No apparent distress HEENT: Atraumatic, PERRLA, EOMI Neck: Supple, No Nodes Lungs: Clear to auscultation, Normal air movement Cardiovascular: Regular rate, Regular Rhythm, No murmurs Abdomen: Soft, Non Tender, Non-Distended Extremities: Edema - mild BLE Skin: - - nearly faded rash above both hips IV Site: Peripheral, without redness Musculoskeletal: No Tenderness to Palpation of Joints or Extremities Neurological: Cranial nerves II-XII grossly intact - Assessment/Plan Antibiotics: [] Assessment/Plan: [] Active and Suspected Problems (Last Reviewed 09/13/18 @ 12:57 by Carlton Pollard DO) Cellulitis of right abdominal wall (Acute) Cellulitis, recurrent, with h/o liver transplant on immunosuppression - nearly resolved now on vanc. Given allergies, limited antibiotic options. Should be able to leave on course of po. Avoid linezolid due to SSRI. Avoid bactrim due to CKD. Doxy may be effective but she was only on it for 2 days prior to coming. Area of involvement is unusual for cellulitis, but she does not have any clear triggers. Would continue vanc for now while inpatient, then ok for home on po doxy 100mg bid for 5 more days. Tedizolid or clinda would be another option. Will follow, thank you.
[2018-09-15 14:00] VITALS: BP 159/76; PULSE 71; RESP 16; TEMP 36.4; O2SAT 99
--- NOTE | 2018-09-15 14:53 | PN_ITS ---
Patient Problems: Active and Suspected Problems (Last Reviewed 09/13/18 @ 12:57 by Carlton Pollard DO) Cellulitis of right abdominal wall (Acute) Subjective: Feeling better, rash has improved. No acute events overnight Vitals/I&O's: Vital Signs Temp Pulse Resp BP Pulse Ox 97.5 F L 71 16 159/76 H 99 09/15/18 14:00 09/15/18 14:00 09/15/18 14:00 09/15/18 14:00 09/15/18 14:00 Oxygen Delivery Method Room Air Weight: 254 lb 3.088 oz Body Mass Index (BMI) 42.3 Finger Stick Blood Glucose 427 Intake and Output for Last 24 Hours 09/13/18 09/14/18 09/15/18 23:59 23:59 23:59 Intake Total 250 / 250 2402 / 3228 1114 / 1114 Balance 250 / 250 2402 / 3228 1114 / 1114 General: Alert, Oriented x3, Cooperative, No apparent distress HEENT: Atraumatic, PERRLA, EOMI, Normocephalic Oral: Moist Mucosa Neck: Supple, No JVD Lungs: Clear to auscultation, Normal air movement, No rhonchi, No wheeze, No rales, Diminished Cardiovascular: Regular rate, Regular Rhythm, Normal S1, Normal S2, No murmurs Abdomen: Soft, Non Tender, Non-Distended, No Hepato-splenomegaly Extremities: No edema, Capillary Refill Less than 3 Seconds Skin: - - Currently no area of erythema on her back or flank Neurological: Neuro grossly intact, Sensory exam intact to light touch and pain Psych/Mental Status: Normal Affect, Appropriate Laboratory Results 09/14/18 16:14: POC Glucose 118 H 09/14/18 22:17: POC Glucose 147 H 09/15/18 05:20: WBC 3.3 L, RBC 3.85 L, Hgb 8.7 L, Hct 29.3 L, MCV 76.1 L, MCH 22.6 L, MCHC 29.7 L, RDW 19.2 H, RDW Differential 51.6 H, Plt Count 110 L, MPV 11.2, Neut % (Auto) Not Reportable, Absolute Neuts (auto) 2.5, Absolute Lymphs (auto) 0.36 L, Total Counted 100, Neutrophils % (Manual) 75 H, Band Neutrophils % 1, Lymphocytes % (Manual) 11 L, Monocytes % (Manual) 4, Eosinophils % (Manual) 9 H, Diff Path Review May foll, Platelet Estimate SLT DEC, Hypochromasia 1+, Basophilic Stippling RARE, Microcytosis 1+ 09/15/18 05:20: Sodium 136, Potassium 4.4, Chloride 107, Carbon Dioxide 24.0, Anion Gap 5, BUN 60 H, Creatinine 2.03 H, Estim Creat Clear Calc 26.19, Est GFR (MDRD) Af Amer 32 L, Est GFR (MDRD) Non-Af 26 L, BUN/Creatinine Ratio 29.6 H, Glucose 122 H, Calcium 8.0 L 09/15/18 06:12: POC Glucose 131 H 09/15/18 08:09: POC Glucose 117 H 09/15/18 11:16: POC Glucose 164 H 09/15/18 11:35: Vancomycin Trough 18.1 H Current Medications Acetaminophen (Tylenol) 650 mg PO Q6H PRN PRN PRN Reason: Mild Pain (1-3)/Temp > 100.7 F Ascorbic Acid (Vitamin C) 1,000 mg PO DAILY [facility] Last Admin: 09/15/18 08:36 Dose: 1,000 mg Documented by: Atorvastatin Calcium (Lipitor) 10 mg PO QHS [facility] Last Admin: 09/14/18 22:10 Dose: 10 mg Documented by: Cholecalciferol (Vitamin D) 1,000 unit PO DAILY [facility] Last Admin: 09/15/18 08:36 Dose: 1,000 unit Documented by: Clobetasol Propionate (Temovate Cream (Bkc)) 1 applic TOPICAL TID PRN PRN PRN Reason: ITCHING Cyanocobalamin (Vitamin B12) 1,000 mcg PO DAILY [facility] Last Admin: 09/15/18 08:36 Dose: 1,000 mcg Documented by: Dextrose (D50w Syringe) 0 gm IV X1 PRN; Protocol PRN Reason: Hypoglycemia Ferrous Sulfate (Ferrous Sulfate) 325 mg PO DAILYCM [facility] Last Admin: 09/15/18 08:17 Dose: 325 mg Documented by: Furosemide (Lasix) 60 mg PO BIDLX [facility] Last Admin: 09/15/18 08:33 Dose: 60 mg Documented by: Glucagon () 1 mg IM .X1 PRN PRN Reason: Hypoglycemia Vancomycin IV Pharmacy to Dose (1 ea/ Sodium Chloride) 500 mls @ 250 mls/hr IV PRN PRN; Protocol PRN Reason: Rx to Dose Vancomycin HCl 1,250 mg/ (Sodium Chloride) 275 mls @ 167 mls/hr IV Q24H [facility] Last Admin: 09/15/18 14:37 Dose: 167 mls/hr Documented by: Sodium Chloride () 250 mls @ 15 mls/hr IV .[id number] PRN PRN Reason: SALINE FLUSH Last Admin: 09/15/18 00:25 Dose: 15 mls/hr Documented by: Insulin Glargine (Lantus (Bkc)) 40 units SC BID [facility] Last Admin: 09/15/18 08:38 Dose: Not Given Documented by: Insulin Human Lispro (Humalog Kwikpen (Bkc)) 14 unit SC DINNER [facility] Last Admin: 09/14/18 16:15 Dose: Not Given Documented by: Insulin Human Lispro (Humalog Kwikpen (Bkc)) 8 unit SC 0800,1200 [facility] Last Admin: 09/15/18 11:25 Dose: 8 u Documented by: Insulin Human Lispro (Humalog Kwikpen (Bkc)) 0 unit SC TIDAC [facility]; Protocol Last Admin: 09/15/18 14:38 Dose: Not Given Documented by: Labetalol HCl (Trandate) 600 mg PO BID [facility] Last Admin: 09/15/18 08:36 Dose: 600 mg Documented by: Levothyroxine Sodium (Synthroid) 25 mcg PO DAILY@0600 [facility] Last Admin: 09/15/18 06:15 Dose: 25 mcg Documented by: Ondansetron HCl (Zofran) 4 mg IV Q8H PRN PRN PRN Reason: NAUSEA/VOMITING Oxycodone HCl (Oxyir) 5 mg PO Q4H PRN PRN PRN Reason: Moderate Pain (4-6/10) Last Admin: 09/14/18 08:25 Dose: 5 mg Documented by: Pramipexole Dihydrochloride (Mirapex) 0.5 mg PO BID [facility] Last Admin: 09/15/18 08:34 Dose: 0.5 mg Documented by: Sertraline HCl (Zoloft) 50 mg PO DAILY [facility] Last Admin: 09/15/18 08:37 Dose: 50 mg Documented by: Sirolimus (Rapamune) 1 mg PO DAILY@1200 [facility] Last Admin: 09/15/18 11:25 Dose: 1 mg Documented by: Sodium Chloride () 10 - 40 ml IV UD PRN PRN Reason: SALINE FLUSH Last Admin: 09/14/18 18:46 Dose: 20 ml Documented by: Tacrolimus (Prograf) 0.5 mg PO DAILY@0800 [facility] Last Admin: 09/15/18 08:22 Dose: 0.5 mg Documented by: Trazodone HCl (Desyrel) 100 mg PO QHS [facility] Last Admin: 09/14/18 22:10 Dose: 100 mg Documented by: Medical Necessity - Tobacco Use Smoking Status: Never smoker Assessment/Plan All Active Problems (Last Reviewed 09/13/18 @ 12:57 by Carlton Pollard DO) Severe sepsis (Resolved) Dehydration (Resolved) Acute kidney injury superimposed on chronic kidney disease (Resolved) Diastolic CHF, acute (Resolved) Hypomagnesemia (Resolved) Acute respiratory failure with hypoxia (Resolved) Pleural effusion (Resolved) Cellulitis (Resolved) Diabetic foot ulcer (Resolved) Foreign body in right foot with infection (Resolved) Right foot pain (Resolved) Cellulitis of right abdominal wall (Acute) HOFFMAN (nonalcoholic steatohepatitis) (Resolved) 1. Left back and flank cellulitis -It appears to have been resolved with the IV vancomycin -Appreciate ID recommendations -States that she has had this happen multiple times and has been given a course of doxycycline which would resolve the infection and then a week or 2 after she was done taking the doxycycline the cellulitis would recur 2. Immunocompromised secondary to liver transplant -Continue on tacrolimus and sirolimus -He states that they are trying to wean her off of the tacrolimus which is why they started her on sirolimus -She will need to follow-up with her transplant doctor as an outpatient 3. DM2/CKD 4/anemia of chronic disease -Blood sugars have been stable -We will continue with her home insulin regimen -Creatinine is at baseline -Continue with iron replacement 4. HTN/HLD -Stable -Continue with Lipitor, Lasix, and labetalol 5. Hypothyroidism -Stable -Continue with home Synthroid 6. Anxiety/depression -Stable -Continue with Zoloft DVT: Lovenox Code Visit Inpatient E&M: 46332 Subs Hosp L2
[2018-09-15 17:35] LABS: Bedside Glucose 102 mg/dL (70-110)
[2018-09-15 20:20] VITALS: BP 163/72; PULSE 72; RESP 16; TEMP 36.9; O2SAT 99
[2018-09-15] MEDS: Atorvastatin Calcium 10 MG Tablet PO (22:43)
[2018-09-15] MEDS: traZODone 100 MG Tablet PO (22:43)
[2018-09-16 01:56] VITALS: BP 147/76; PULSE 68; RESP 16; TEMP 36.6; O2SAT 99
[2018-09-16 02:06] LABS: Bedside Glucose 129 mg/dL (70-110)
[2018-09-16] MEDS: Levothyroxine 25 MCG TABLET PO (05:11)
[2018-09-16 07:25] LABS: Bedside Glucose 105 mg/dL (70-110)
[2018-09-16 09:00] VITALS: BP 145/74; PULSE 70; RESP 18; TEMP 36.6; O2SAT 99
[2018-09-16] MEDS: Ferrous Sulfate 325 MG Tablet PO (09:06)
[2018-09-16] MEDS: Pramipexole Di-HCl 0.5 MG Tablet PO (09:10)
[2018-09-16] MEDS: Ascorbic Acid 500 MG Tablet 1000 MG PO (09:10)
[2018-09-16] MEDS: Furosemide 40 MG Tablet 60 MG PO (09:10)
[2018-09-16] MEDS: Labetalol 200 MG Tablet 600 MG PO (09:11)
[2018-09-16] MEDS: Sertraline 50 MG Tablet PO (09:12)
[2018-09-16] MEDS: Cyanocobalamin 500 MCG Tablet 1000 MCG PO (09:12)
[2018-09-16 09:30] VITALS: PULSE 76
[2018-09-16 10:19] LABS: Pathologist Review Reviewed
--- NOTE | 2018-09-16 10:29 | DCINST_ITS ---
- Discharge Diagnoses Current Active Problems: Current Active and Chronic Problems (Last Reviewed 09/13/18 @ 12:57 by Carlton Pollard DO) Cellulitis of right abdominal wall (Acute) You will use the following diet at home:: Calorie/Carbohydrate Controlled (specify 1200, 1400, etc) Your food should be the consistency of: Regular Your liquids should be the consistency of: Regular/Thin Discharge Activity: Return to Normal Activity Call your doctor if you observe: Fever of 101 or Higher, Shortness of breath, Dizziness, Fainting spells, Swelling in the ankles, Chest pain, Increased palpitations (irregular heartbeat) Allergies/Adverse Reactions: Allergies amlodipine [From Norvasc] Adverse Reaction (Severe, Verified 09/13/18 10:38) Hives ampicillin sodium [From Unasyn] Adverse Reaction (Severe, Verified 09/13/18 10:38) Hives buspirone HCl [From BuSpar] Adverse Reaction (Severe, Verified 09/13/18 10:38) Hives lisinopril Adverse Reaction (Severe, Verified 09/13/18 10:38) Swelling naproxen Adverse Reaction (Severe, Verified 09/13/18 10:38) Hives niacin [From Niaspan Extended-Release] Adverse Reaction (Severe, Verified 09/13/18 10:38) Hives omeprazole Adverse Reaction (Severe, Verified 09/13/18 10:38) Other stage 3 kidney failure UNABLE TO TAKE DUE TO TRANSPLALNT sulbactam sodium [From Unasyn] Adverse Reaction (Severe, Verified 09/13/18 10:38) Hives Sulfa (Sulfonamide Antibiotics) Adverse Reaction (Severe, Verified 09/13/18 10:38) Hives cephalexin [From Keflex] Adverse Reaction (Verified 09/13/18 10:38) Hives losartan Adverse Reaction (Verified 09/13/18 10:38) Swelling DURACEF Adverse Reaction (Severe, Uncoded 09/13/18 10:38) Hives Medications to take at Discharge Ascorbic Acid [Vitamin C] 1,000 mg PO DAILY 02/20/15 Cholecalciferol (VIT D3) [Vitamin D3] 1,000 unit PO DAILY 02/20/15 Ropinirole HCl [Requip] 1 mg PO BID 02/20/15 Sertraline HCl [Zoloft] 50 mg PO DAILY 02/20/15 Tacrolimus Anhydrous [Prograf] 0.5 mg PO DAILY 03/18/16 Trazodone HCl 100 mg PO QHS 03/18/16 Furosemide 60 mg PO BID 06/19/16 Levothyroxine [Synthroid] 25 mcg PO DAILY 06/19/16 Ferrous Sulfate [Iron] 325 mg PO DAILY 07/19/16 Sirolimus 1 mg PO DAILY 08/01/16 Labetalol [Trandate (Beta Dragan)] 600 mg PO BID 08/20/16 Atorvastatin Calcium [Lipitor] 10 mg PO QHS 10/19/16 Apremilast [Otezla] 30 mg PO BID 01/15/18 Cyanocobalamin (Vitamin B-12) [Vitamin B-12] 1,000 mcg PO DAILY 05/29/18 Insulin Aspart [Novolog Flexpen] 0 units SC TID 05/29/18 Insulin Aspart [Novolog Flexpen] 8 units SC BIDCM 05/29/18 Insulin Aspart [Novolog Flexpen] 14 units SC DINNER 05/29/18 Insulin Glargine,Hum.rec.anlog [Lantus Solostar] 40 unit SQ BID 05/29/18 Desoximetasone [Topicort] 60 gm TP PRN PRN 07/04/18 Desoximetasone [Topicort] 1 gm TP TID PRN PRN cream..g. 07/06/18 Doxycycline 100 mg PO BID #20 cap 09/16/18 Primary Care Physician: Velia Archuleta MD [Primary Care Provider] - Please follow up with your Primary Care Physician in: 3-5 days Test Results: Test results from this visit will be discussed in further detail at your follow- up appointment, if applicable.
--- NOTE | 2018-09-16 10:35 | PCM.PN.ID ---
Patient Problems: Active and Suspected Problems (Last Reviewed 09/13/18 @ 12:57 by Carlton Pollard DO) Cellulitis of right abdominal wall (Acute) Subjective: Feeling better, minimal residual pain in back, rash nearly resolved, no fever - Physical Exam General: Alert, Cooperative, No apparent distress Cardiovascular: Regular rate, Regular Rhythm Abdomen: Soft, Non Tender, Non-Distended Skin: No rashes - redness resolved Vital Signs Temp Pulse Resp BP Pulse Ox 97.9 F 70 18 145/74 H 99 09/16/18 09:00 09/16/18 09:00 09/16/18 09:00 09/16/18 09:00 09/16/18 09:00 Oxygen Delivery Method Room Air Weight: 115.3 kg Body Mass Index (BMI) 42.3 Finger Stick Blood Glucose 427 Intake and Output for Last 24 Hours 09/14/18 09/15/18 09/16/18 23:59 23:59 23:59 Intake Total 2 / 8 1114 / 2036 1241 / 1241 Balance 2402 / 8 1113 / 2036 1241 / 1241 Microbiology Past 72 Hours 09/13/18 11:30 Blood Culture - Preliminary Blood Culture (Wb) - Anticubital Left No growth in 48 hours. 09/13/18 11:30 Blood Culture - Preliminary Blood Culture (Wb) - Right Forearm No growth in 48 hours. Laboratory Tests Past 24 Hrs 09/15/18 09/15/18 05:20 11:35 Diff Path Review Reviewed Vancomycin Trough 18.1 H POC Glucose 09/16/18 09/15/18 09/15/18 06:46 22:38 17:21 POC Glucose 105 129 H 102 09/15/18 11:16 POC Glucose 164 H Medical Necessity - Tobacco Use Smoking Status: Never smoker Route of nutrition/ use of supplements: [] Nutritional Intake: [] IV Site: [] Paz Catheter: [] - Assessment/Plan Antibiotics: [] Assessment/Plan: [] Active and Suspected Problems (Last Reviewed 09/13/18 @ 12:57 by Carlton Pollard DO) Cellulitis of right abdominal wall (Acute) Cellulitis, recurrent, with h/o liver transplant on immunosuppression - nearly resolved now on vanc. Given allergies, limited antibiotic options. Should be able to leave on course of po doxy for 3 more days. Will follow, d/w Dr. Armenta
[2018-09-16] MEDS: Ondansetron 4 MG/2 ML Vial IV (11:17)
[2018-09-16] MEDS: 0.9% NaCl Peripheral Flush Adult/Peds IV (11:17)
--- NOTE | 2018-09-16 11:17 | DS.PCM_ITS ---
Discharge Date and Diagnosis - Problem List Patient Problems: Active and Suspected Problems (Last Reviewed 09/13/18 @ 12:57 by Carlton Pollard DO) Cellulitis of right abdominal wall (Acute) Date of Admission: 09/13/18 Date of Discharge: 09/16/18 - Primary Discharge Diagnosis Active and Suspected Problems (Last Reviewed 09/13/18 @ 12:57 by Carlton Pollard DO) Cellulitis of right abdominal wall (Acute) - Secondary Discharge Diagnosis Chronic Problems (Last Reviewed 09/13/18 @ 12:57 by Carlotn Pollard DO) Obstructive sleep apnea syndrome (Chronic) Portal hypertension (Chronic) History of liver transplant (Chronic) Type 2 diabetes mellitus (Chronic) Immunosuppressed status (Chronic) Psoriasis (Chronic) 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) RLS (restless legs syndrome) (Chronic) Microcytic anemia (Chronic) Diabetes mellitus type 2 in obese (Chronic) S/P liver transplant (Chronic) uterine and cervical cancer (Chronic) Bilateral leg edema (Chronic) Immunocompromised patient (Chronic) Thrombocytopenia (Chronic) Anemia in chronic kidney disease (Chronic) 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 2 days later, went to her primary care physician's office and received antibiotics with cephalexin and doxycycline. Today, the rash is extending up her back and just is painful. Patient has had cellulitis in similar regions in the similar presentation. Patient is also had diffuse zoster as well but this is a different presentation. Patient does not have any vesicles with her rash. Hospital Course: 1. Left back and flank [id number] female who presents with erythema over her flank and back. She says that this is been happening frequently over the last several months and should be on a course of antibiotics and then a week or 2 after the rash has cleared it would come back. She was admitted on vancomycin after 2 days of doxycycline at home and the rash resolved very quickly. She still has doxycycline at home and in discussion with infectious disease, it was stated that she could just take 3 more days of doxy at home to complete her antibiotic course. I also discussed with her the possibility of obtaining chlorhexidine body wash and using that 2 or 3 times a week to decrease surface contaminants. This plan was discussed with her and her in detail and they were both in agreement. 2. Her other medical diagnoses were evaluated and her home medications were continued where appropriate Patient Problems: Active and Suspected Problems (Last Reviewed 09/13/18 @ 12:57 by Carlton Pollard DO) Cellulitis of right abdominal wall (Acute) Objective: General: Alert, Oriented x3, Cooperative, No apparent distress HEENT: Atraumatic, PERRLA, EOMI, Normocephalic Oral: Moist Mucosa Neck: Supple, No JVD Lungs: Clear to auscultation, Normal air movement, No rhonchi, No wheeze, No rales, Diminished Cardiovascular: Regular rate, Regular Rhythm, Normal S1, Normal S2, No murmurs Abdomen: Soft, Non Tender, Non-Distended, No Hepato-splenomegaly Extremities: No edema, Capillary Refill Less than 3 Seconds Skin: - - Currently no area of erythema on her back or flank Neurological: Neuro grossly intact, Sensory exam intact to light touch and pain Psych/Mental Status: Normal Affect, Appropriate - Physical Exam Vital Signs Temp Pulse Resp BP Pulse Ox 97.9 F 70 18 145/74 H 99 09/16/18 09:00 09/16/18 09:00 09/16/18 09:00 09/16/18 09:00 09/16/18 09:00 Oxygen Delivery Method Room Air Weight: 254 lb 3.088 oz Body Mass Index (BMI) 42.3 Finger Stick Blood Glucose 427 Intake and Output for Last 24 Hours 09/14/18 09/15/18 09/16/18 23:59 23:59 23:59 Intake Total 2402 / 3228 1114 / 7 1241 / 1241 Balance 2402 / 3228 1114 / 7 1241 / 1241 Microbiology Past 72 Hours 09/13/18 11:30 Blood Culture - Preliminary Blood Culture (Wb) - Anticubital Left No growth in 48 hours. 09/13/18 11:30 Blood Culture - Preliminary Blood Culture (Wb) - Right Forearm No growth in 48 hours. Laboratory Tests Past 24 Hrs 09/15/18 09/15/18 05:20 11:35 Diff Path Review Reviewed Vancomycin Trough 18.1 H POC Glucose 09/16/18 09/15/18 09/15/18 06:46 22:38 17:21 POC Glucose 105 129 H 102 09/15/18 11:16 POC Glucose 164 H Discharge Activity: Return to Normal Activity Call your doctor if you observe: Fever of 101 or Higher, Shortness of breath, Dizziness, Fainting spells, Swelling in the ankles, Chest pain, Increased palpitations (irregular heartbeat) Home Medications: Medications to take at Discharge Ascorbic Acid [Vitamin C] 1,000 mg PO DAILY 02/20/15 Cholecalciferol (VIT D3) [Vitamin D3] 1,000 unit PO DAILY 02/20/15 Ropinirole HCl [Requip] 1 mg PO BID 02/20/15 Sertraline HCl [Zoloft] 50 mg PO DAILY 02/20/15 Tacrolimus Anhydrous [Prograf] 0.5 mg PO DAILY 03/18/16 Trazodone HCl 100 mg PO QHS 03/18/16 Furosemide 60 mg PO BID 06/19/16 Levothyroxine [Synthroid] 25 mcg PO DAILY 06/19/16 Ferrous Sulfate [Iron] 325 mg PO DAILY 07/19/16 Sirolimus 1 mg PO DAILY 08/01/16 Labetalol [Trandate (Beta Dragan)] 600 mg PO BID 08/20/16 Atorvastatin Calcium [Lipitor] 10 mg PO QHS 10/19/16 Apremilast [Otezla] 30 mg PO BID 01/15/18 Cyanocobalamin (Vitamin B-12) [Vitamin B-12] 1,000 mcg PO DAILY 05/29/18 Insulin Aspart [Novolog Flexpen] 0 units SC TID 05/29/18 Insulin Aspart [Novolog Flexpen] 8 units SC BIDCM 05/29/18 Insulin Aspart [Novolog Flexpen] 14 units SC DINNER 05/29/18 Insulin Glargine,Hum.rec.anlog [Lantus Solostar] 40 unit SQ BID 05/29/18 Desoximetasone [Topicort] 60 gm TP PRN PRN 07/04/18 Desoximetasone [Topicort] 1 gm TP TID PRN PRN cream..g. 07/06/18 Doxycycline 100 mg PO BID #20 cap 09/16/18 Primary Care Physician: Velia Archuleta MD [Primary Care Provider] - Please follow up with your Primary Care Physician in: 3-5 days Please Follow Up With: Velia Archuleta MD When: 3-5 days Disposition: Home Minutes spent on discharge:: 35 Patient Condition:: Good Medical Necessity - Tobacco Use Smoking Status: Never smoker Meaningful Use Info Meaningful Use Diagnoses (Choose all that apply): None applicable Code Visit Inpatient E&M: 08288 Disch Hosp
[2018-09-16 11:30] LABS: Bedside Glucose 176 mg/dL (70-110)
[2018-09-16 13:43] VITALS: BP 145/70; PULSE 70; RESP 18; TEMP 36.6; O2SAT 95
--- NOTE | 2018-09-17 15:50 | CASEMGMT ---
RN CM DC PHONE CALL DC DATE: 09/16/18 DC Disposition: Home Diagnosis on Discharge: L back and flank cellulitis LACE/STRATA: 15/4 Intro role of CM to patient via phone. Pt does not have questions re: prescriptions instructions or fu apptl made with Dr. Archuleta on 09/19/18. No care improvement suggestions given. Keiko THORNTONN RN ACM
== END 2018-09-16 13:51 | disposition home or self-care (01) | DRG 603 ==
LOC: ED 12:14 → MS3 13:13
PROVIDERS: Emergency Provider Emergency Medicine; Family Provider Internal Medicine; PCP Internal Medicine; Visit Provider Family Medicine
DX: L03.319 Cellulitis of trunk, unspecified (principal); Z94.4 Liver transplant status; Z68.41 Body mass index [BMI] 40.0-44.9, adult; N18.4 Chronic kidney disease, stage 4 (severe); L03.312 Cellulitis of back [any part except buttock and flank]; E11.22 Type 2 diabetes mellitus with diabetic chronic kidney disease; E78.5 Hyperlipidemia, unspecified; E03.9 Hypothyroidism, unspecified; D63.1 Anemia in chronic kidney disease; E66.9 Obesity, unspecified; G47.33 Obstructive sleep apnea (adult) (pediatric); I12.9 Hypertensive chronic kidney disease with stage 1 through stage 4 chronic kidney disease, or unspecified chronic kidney disease; Z79.4 Long term (current) use of insulin; G25.81 Restless legs syndrome
CPT/HCPCS: 36415; 80048; 80053; 80202; 82962; 85025; 87040; 99284; J7030; J7040; J7050; A4216; J2405

== ENCOUNTER 2018-10-10 09:06 | Inpatient (IN) | payer MEDICARE, SELFPAY ==
[2018-10-10 09:06] VITALS: BMI 40.9
[2018-10-10 09:07] VITALS: BP 135/66; PULSE 84; RESP 17; TEMP 36.9; O2SAT 96; BMI 39.4
--- NOTE | 2018-10-10 09:25 | ED.VISSUMM ---
- ER Visit Summary Date of Service: 10/10/18 Chief Complaint: Cellulitis History of Present Illness: The patient is a 63 F presenting with cellulitis right flank and back. Patient states this is the fifth time she has had cellulitis since May. She states she is typically treated with IV vancomycin. She took doxycycline that she had leftover last night. She has had subjective fever and nausea. She has a history of liver transplant in 2008. Denies other complaints. Physical Examination: Vitals are stable. Patient is afebrile. Alert no acute distress. HEENT exam is unremarkable. Neck is supple. Lungs are clear and equal bilaterally. Heart is regular rate and rhythm. Abdomen is soft nontender nondistended. Extremities are unremarkable. Skin is warm and dry. Erythema, warmth right flank and right lower back No focal neurologic deficit. Remainder of exam is unremarkable. Emergency Department Course and Treatment: CBC shows hemoglobin 10.7, platelet 109. Chemistries show sodium 133, glucose 185, BUN 56, creatinine 2.31. ESR 37. Blood cultures were sent. Patient will be given vancomycin. Discussed with the hospitalist for admission. Disposition: Admission Impression: Abdominal wall cellulitis This note was generated with [employer] dictation software. It may contain incorrect words, spelling, and punctuation that were not noted in review of the chart prior to signing ED Disposition - Plan for ED Patient: Referrals: Velia Archuleta MD [Primary Care Provider] -
[2018-10-10 10:04] LABS: Absolute Lymphocyte Count 0.46 X10^3/uL (0.83-4.51); Absolute Neutrophil Count 4.8 X10^3/uL (2.0-7.7); Eosinophil# 0.04 X10^3/uL; Eosinophils% 0.7 % (0-5); Hematocrit 35.6 % (37-47); Hemoglobin 10.7 g/dL (12.0-15.0); Lymphocyte # 0.46 X10^3/ul (4.0); Lymphocyte % 8.1 % (19-41); Mean Corp Hgb Conc 30.1 g/dL (32-36); Mean Corpuscular Hgb 23.3 pg (27.0-32.0); Mean Corpuscular Volume 77.4 fL (81-99); Mean Platelet Vol. 9.8 fl (6.2-12.0); Monocyte# 0.36 X10^3/uL; Monocyte% 6.4 % (0-10); NRBC Flagged by Analyzer 0 % (0-5); Neutrophil # 4.76 X10^3/uL (2.7-7.7); Neutrophil % 84.1 % (47-70); POSITIVE DIFFERENTIAL YES; Platelet Count 109 K/mm3 (150-450); RBC Distribution Width CV 19.8 % (11.6-14.6); RBC Distribution Width SD 55.4 fl (35.1-43.9); White Blood Count 5.7 K/mm3 (4.4-11.0)
[2018-10-10] MEDS: Ondansetron 4 MG/2 ML Vial IV ×2 (10:08→11:02)
[2018-10-10 10:10] VITALS: TEMP 36.9
[2018-10-10 10:10] LABS: Differential Indicated SCAN CRITERIA MET
[2018-10-10 10:16] LABS: Erythrocyte Sedimentation Rate 37 mm/hr (0-30)
[2018-10-10 10:20] LABS: Anion Gap 7 (5-15); BUN 56 mg/dL (7-18); BUN/Creat Ratio 24.2 RATIO (10-20); Calcium,Total 8.6 mg/dL (8.5-10.1); Chloride 103 mmol/L (98-107); Creatinine, Serum 2.31 mg/dL (0.55-1.02); EST Glomerular Filtration Rate 23 mL/min (>60); Est Glom Filt Rate - Afr Amer 28 mL/min (>60); Estimated Creatinine Clearance 23.01 ml/min; Glucose 185 mg/dL (74-106); Potassium 5.1 mmol/L (3.5-5.1); Sodium Level 133 mmol/L (136-145)
[2018-10-10 10:59] LABS: AST(SGOT) 10 U/L (15-37); Alanine Aminotransfer ALT/SGPT 14 U/L (13-56); Albumin, Serum 3.3 g/dL (3.2-5.0); Alkaline Phosphatase 66 U/L (45-117); Bilirubin, Direct 0.21 mg/dL (0.00-0.30); Protein, Total 7.3 g/dL (6.4-8.2)
[2018-10-10] MEDS: Morphine 4 MG/ML Syringe IV (11:02)
--- NOTE | 2018-10-10 11:28 | HP.PCM_ITS ---
Problem List (1) Obstructive sleep apnea syndrome Status: Chronic (2) Portal hypertension Status: Chronic (3) History of liver transplant Status: Chronic (4) Type 2 diabetes mellitus Status: Chronic (5) Immunosuppressed status Status: Chronic (6) Psoriasis Status: Chronic (7) Liver cirrhosis secondary to MORA Status: Chronic (8) Severe sepsis Status: Resolved (9) Dehydration Status: Resolved (10) Acute kidney injury superimposed on chronic kidney disease Status: Resolved (11) RLS (restless legs syndrome) Status: Chronic (12) Microcytic anemia Status: Chronic (13) Diastolic CHF, acute Status: Resolved (14) Hypomagnesemia Status: Resolved (15) Diabetes mellitus type 2 in obese Status: Chronic (16) Acute respiratory failure with hypoxia Status: Resolved (17) Pleural effusion Status: Resolved (18) Cellulitis Status: Resolved (19) S/P liver transplant Status: Chronic (20) Diabetic foot ulcer Status: Resolved (21) uterine and cervical cancer Status: Chronic (22) Foreign body in right foot with infection Status: Resolved (23) Right foot pain Status: Resolved (24) Bilateral leg edema Status: Chronic (25) Immunocompromised patient Status: Chronic (26) Thrombocytopenia Status: Chronic (27) Anemia in chronic kidney disease Status: Chronic (28) Immunosuppressive-induced white blood cell (WBC) disorder Status: Chronic (29) Pancytopenia Status: Chronic (30) Neutropenia Status: Chronic (31) Iron deficiency anemia Status: Chronic (32) CKD (chronic kidney disease), stage III Status: Chronic (33) Cellulitis of right abdominal wall Status: Acute History of Present Illness Date of Admission: 10/10/18 Chief Complaint: Concern of cellulitis The patient is a 63 year old F with history of Mora related cirrhosis on immunosuppressant, psoriasis came to ER with right abdominal wall redness and subjective fever. Patient did not measure temperature at home but she felt cold and had to take 2 blankets. Last time she had similar features of left flank/back cellulitis and was discharged on doxycycline. [] ED, she did not had fever chills. Blood pressure is stable. 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) RLS (restless legs syndrome) (Chronic) Microcytic anemia (Chronic) Diabetes mellitus type 2 in obese (Chronic) S/P liver transplant (Chronic) uterine and cervical cancer (Chronic) Bilateral leg edema (Chronic) Immunocompromised patient (Chronic) Thrombocytopenia (Chronic) Anemia in chronic kidney disease (Chronic) 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) Pancytopenia (Chronic) Neutropenia (Chronic) Iron deficiency anemia (Chronic) CKD (chronic kidney disease), stage III (Chronic) Medical History: Medical History (Last Reviewed 09/13/18 @ 12:57 by Carlton Pollard DO) Chronic kidney disease, stage 3 N18.3 Diabetes E11.9 GERD (gastroesophageal reflux disease) K21.9 History of uterine cancer Z85.42 LIVER TRANSPLANT 2009 [facility] Sleep apnea G47.30 Hypertension I10 Allergies amlodipine [From Norvasc] Adverse Reaction (Severe, Verified 10/10/18 09:07) Hives ampicillin sodium [From Unasyn] Adverse Reaction (Severe, Verified 10/10/18 09:07) Hives buspirone HCl [From BuSpar] Adverse Reaction (Severe, Verified 10/10/18 09:07) Hives lisinopril Adverse Reaction (Severe, Verified 10/10/18 09:07) Swelling naproxen Adverse Reaction (Severe, Verified 10/10/18 09:07) Hives niacin [From Niaspan Extended-Release] Adverse Reaction (Severe, Verified 10/10/18 09:07) Hives omeprazole Adverse Reaction (Severe, Verified 10/10/18 09:07) Other stage 3 kidney failure UNABLE TO TAKE DUE TO TRANSPLALNT sulbactam sodium [From Unasyn] Adverse Reaction (Severe, Verified 10/10/18 09:07) Hives Sulfa (Sulfonamide Antibiotics) Adverse Reaction (Severe, Verified 10/10/18 09:07) Hives cephalexin [From Keflex] Adverse Reaction (Verified 10/10/18 09:07) Hives losartan Adverse Reaction (Verified 10/10/18 09:07) Swelling DURACEF Adverse Reaction (Severe, Uncoded 10/10/18 09:07) Hives Home Medications: Ambulatory Orders Medication Instructions Recorded Ascorbic Acid [Vitamin C] 1,000 mg PO DAILY 02/20/15 Cholecalciferol (VIT D3) [Vitamin 1,000 unit PO DAILY 02/20/15 D3] Ropinirole HCl [Requip] 1 mg PO BID 02/20/15 Sertraline HCl [Zoloft] 50 mg PO DAILY 02/20/15 Tacrolimus Anhydrous [Prograf] 0.5 mg PO DAILY 03/18/16 Trazodone HCl 100 mg PO QHS 03/18/16 Furosemide 60 mg PO BID 06/19/16 Levothyroxine [Synthroid] 25 mcg PO DAILY 06/19/16 Ferrous Sulfate [Iron] 325 mg PO DAILY 07/19/16 Sirolimus 1 mg PO DAILY 08/01/16 Labetalol [Trandate (Beta Dragan)] 600 mg PO BID 08/20/16 Atorvastatin Calcium [Lipitor] 10 mg PO QHS 10/19/16 Apremilast [Otezla] 30 mg PO BID 01/15/18 Cyanocobalamin (Vitamin B-12) 1,000 mcg PO DAILY 05/29/18 [Vitamin B-12] Insulin Aspart [Novolog Flexpen] 0 units SC TID 05/29/18 Insulin Aspart [Novolog Flexpen] 8 units SC BIDCM 05/29/18 Insulin Aspart [Novolog Flexpen] 14 units SC QHS 05/29/18 Insulin Glargine,Hum.rec.anlog 40 unit SQ BID 05/29/18 [Lantus Solostar] Desoximetasone [Topicort] 60 gm TP PRN PRN 07/04/18 Surgical History: Surgical History (Last Reviewed 09/13/18 @ 12:57 by Carlton Pollard DO) History of cholecystectomy Z90.49 2008 History of left knee surgery Z98.890 History of left salpingo-oophorectomy Z90.79, Z90.721 1989 BENIGN TUMOR History of radical hysterectomy Z90.710 History of splenectomy Z90.81 2008 History of ventral hernia repair Z98.890, Z87.19 Surgical History: appendectomy, cholecystectomy, herniorrhaphy - Incisional hernia repair 2008, hysterectomy, - - Liver transplant, splenectomy, hysterectomy, left knee surgery, removal of left ovary, total mouth extraction Psychiatric History: No pertinent psych hx 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 Smoking Status: Never smoker - *Family History Maternal Family History: Family History (Last Reviewed 09/13/18 @ 12:57 by Carlton Pollard DO) Mother Diabetes Anemia Father Hypertension LUNG/RESPIRATORY DISEASE History Items: Diabetes, Heart Disease Paternal Family History: Family History (Last Reviewed 09/13/18 @ 12:57 by Carlton Pollard DO) Mother Diabetes Anemia Father Hypertension LUNG/RESPIRATORY DISEASE History Items: Cancer, Heart Disease Sibling Family History: Family History (Last Reviewed 09/13/18 @ 12:57 by Carlton Pollard DO) Mother Diabetes Anemia Father Hypertension LUNG/RESPIRATORY DISEASE History Items: - - Cirrhosis Review of Systems Constitutional: Reports: Chills HEENT: Denies: Head Aches, Sinus Congestion, Sinus Drainage Cardiovascular: Denies: Chest Pain, Palpitations Respiratory: Denies: Cough, Shortness of breath at rest, Sputum production Gastrointestinal: Denies: Abdominal Pain, Nausea, Vomiting Genitourinary: Denies: Dysuria Musculoskeletal: Denies: Joint Pain, Joint Tenderness Skin: Reports: Pruritis, Rash, Skin Changes. Denies: Wounds Neurological: Denies: Numbness, Tingling, Focal weakness Psychiatric: Denies: Anxiety, Depression, Homicidal Ideations, Suicidal Ideations Hematologic/ Lymphatic: Denies: Easy Bruising, Easy Bleeding VTE Information - Inpt Only VTE Present on Admission: No VTE Mechan Device Prophylaxis: None VTE Pharm Prophylaxis ordered?: Yes - Physical Exam General: Alert, Oriented x3, Cooperative HEENT: Atraumatic, PERRLA, EOMI, Normocephalic Neck: Supple, No JVD, Negative Carotid Bruits Lungs: Clear to auscultation, Normal air movement, No rhonchi, No wheeze, No rales Cardiovascular: Regular rate, Regular Rhythm, Normal S1, Normal S2, No murmurs Abdomen: Bowel Sounds Present, Soft, Non Tender, Non-Distended Extremities: Capillary Refill Less than 3 Seconds, Edema Skin: Rash Present - There is redness present over right flank, right gluteal region and left gluteal region. The skin looks more dry and jules of itching. There is a small skin tear at the cleft. There is no tenderness, lymphangitis or induration. Musculoskeletal: No Tenderness to Palpation of Joints or Extremities, Arthritic Changes Neurological: Cranial nerves II-XII grossly intact Psych/Mental Status: Normal Affect, Appropriate Vital Signs Temp Pulse Resp BP Pulse Ox 98.5 F 84 17 135/66 H 96 10/10/18 10:10 10/10/18 09:07 10/10/18 09:07 10/10/18 09:07 10/10/18 09:07 Oxygen Delivery Method Room Air Weight: 236 lb 15.951 oz Body Mass Index (BMI) 39.4 Finger Stick Blood Glucose 427 Laboratory Tests Past 24 Hrs 10/10/18 10/10/18 10/10/18 09:45 09:45 09:45 WBC 5.7 RBC 4.60 Hgb 10.7 L Hct 35.6 L MCV 77.4 L MCH 23.3 L MCHC 30.1 L RDW Std Deviation 55.4 H RDW Coeff of Tami 19.8 H Plt Count 109 L MPV 9.8 Immature Gran % (Auto) 0.700 Neut % (Auto) 84.1 H Lymph % (Auto) 8.1 L [place] % (Auto) 6.4 Eos % (Auto) 0.7 Baso % (Auto) 0.0 Absolute Neuts (auto) 4.8 Absolute Lymphs (auto) 0.46 L Nucleated RBC % 0 ESR 37 H Sodium 133 L Potassium 5.1 Chloride 103 Carbon Dioxide 23.0 Anion Gap 7 BUN 56 H Creatinine 2.31 H Estim Creat Clear Calc 23.01 Est GFR (MDRD) Af Amer 28 L Est GFR (MDRD) Non-Af 23 L BUN/Creatinine Ratio 24.2 H Glucose 185 H Calcium 8.6 Total Bilirubin 1.10 H Direct Bilirubin 0.21 AST 10 L ALT 14 Alkaline Phosphatase 66 Total Protein 7.3 Albumin 3.3 Globulin 4.0 Assessment/Plan All Active Problems (Last Reviewed 09/13/18 @ 12:57 by Carlton Pollard DO) Severe sepsis (Resolved) Dehydration (Resolved) Acute kidney injury superimposed on chronic kidney disease (Resolved) Diastolic CHF, acute (Resolved) Hypomagnesemia (Resolved) Acute respiratory failure with hypoxia (Resolved) Pleural effusion (Resolved) Cellulitis (Resolved) Diabetic foot ulcer (Resolved) Foreign body in right foot with infection (Resolved) Right foot pain (Resolved) Cellulitis of right abdominal wall (Acute) MORA (nonalcoholic steatohepatitis) (Resolved) This 63-year-old female with history of Mora related cirrhosis status post OLT came to ER with concern of cellulitis mainly over right flank and gluteal region. 1. Rash and dry skin seems mainly intertriginous dermatitis/chronic psoriasis: Patient is admitted as an observation. Patient was given vancomycin in ED for concern of cellulitis. She further states she was admitted 5 times for cellulitis. I discussed with ID, Dr. Jordan to further evaluate. I do not think patient needs antibiotic. Started on nystatin cream, calmoseptine and desoximetasone 60 g twice daily. Patient had desoximetasone cream at home but she ran out. She needs more skin care discussed with the patient. 2. History of decompensated Mora related cirrhosis status post liver transplant: Discussed with the patient and she is on transition from Prograf to sirolimus because of nephrotoxicity. She was told to continue both. Home dose of Prograf and sirolimus was continued. 3. CKD stage IV possible secondary to side effect of Prograf and other medications and diabetic nephropathy: Creatinine is stable since September running between 2.0-2.3. BUN about 55-60. 4. Diabetes mellitus type II: Glucose is relatively controlled runs between 100-1 85. Accu-Chek before meals and at bedtime and on Lantus and Humalog schedule pre-meal and sliding scale. Titrate the dose of insulin as per Accu- Cheks 5. Multiple comorbidities including obstructive sleep apnea, iron deficiency anemia, chronic diastolic heart failure, chronic microcytic anemia: Stable. H&H 10.7/35.6. MCV low. Chronic thrombocytopenia. Platelet runs around 100,000. 6. DVT prophylaxis: On Lovenox 30 mg subcu daily adjusted to creatinine clearance. Discontinue if platelet count drops less than 50,000 or hemoglobin less than 8 g% Code Visit OBSV E&M: 75293 Initial observation care L3
[2018-10-10 12:18] VITALS: BP 128/59; PULSE 80; RESP 18; TEMP 36.7; O2SAT 99; BMI 40.4
[2018-10-10 14:21] LABS: Bedside Glucose 200 mg/dL (70-110)
[2018-10-10] MEDS: 0.9% Normal Saline 1,000 ML 75 ML IV (14:58)
[2018-10-10] MEDS: SIROLIMUS 1 MG TABLET PO ×2 (15:02)
[2018-10-10] MEDS: Enoxaparin 30 MG/0.3 ML Syringe SC (15:03)
[2018-10-10] MEDS: Menthol/Lanolin/Calamine/Znox 113 GM Tube 1 APPLIC TOPICAL ×2 (15:05→22:07)
--- NOTE | 2018-10-10 16:07 | PCM.HP.ID ---
Problem List (1) Cellulitis Status: Resolved Reason for Consult: cellulitis Consulted by: Dr. Maurer History of Present Illness: The patient is a 63 year old F h/o liver transplant, presents with 5th episode of flank cellulitis in past 4-5 months. Sx started again yesterday with R flank pain, redness, warmth, extending down to buttock. No inciting event. Had fever, came to ED, given vanc. Feeling about the same. Full ROS performed and neg except as noted above. 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) RLS (restless legs syndrome) (Chronic) Microcytic anemia (Chronic) Diabetes mellitus type 2 in obese (Chronic) S/P liver transplant (Chronic) uterine and cervical cancer (Chronic) Bilateral leg edema (Chronic) Immunocompromised patient (Chronic) Thrombocytopenia (Chronic) Anemia in chronic kidney disease (Chronic) 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) Pancytopenia (Chronic) Neutropenia (Chronic) Iron deficiency anemia (Chronic) CKD (chronic kidney disease), stage III (Chronic) Allergies/Adverse Reactions: Allergies amlodipine [From Norvasc] Adverse Reaction (Severe, Verified 10/10/18 09:07) Hives ampicillin sodium [From Unasyn] Adverse Reaction (Severe, Verified 10/10/18 09:07) Hives buspirone HCl [From BuSpar] Adverse Reaction (Severe, Verified 10/10/18 09:07) Hives lisinopril Adverse Reaction (Severe, Verified 10/10/18 09:07) Swelling naproxen Adverse Reaction (Severe, Verified 10/10/18 09:07) Hives niacin [From Niaspan Extended-Release] Adverse Reaction (Severe, Verified 10/10/18 09:07) Hives omeprazole Adverse Reaction (Severe, Verified 10/10/18 09:07) Other stage 3 kidney failure UNABLE TO TAKE DUE TO TRANSPLALNT sulbactam sodium [From Unasyn] Adverse Reaction (Severe, Verified 10/10/18 09:07) Hives Sulfa (Sulfonamide Antibiotics) Adverse Reaction (Severe, Verified 10/10/18 09:07) Hives cephalexin [From Keflex] Adverse Reaction (Verified 10/10/18 09:07) Hives losartan Adverse Reaction (Verified 10/10/18 09:07) Swelling DURACEF Adverse Reaction (Severe, Uncoded 10/10/18 09:07) Hives Home Medications: Ambulatory Orders Medication Instructions Recorded Ascorbic Acid [Vitamin C] 1,000 mg PO DAILY 02/20/15 Cholecalciferol (VIT D3) [Vitamin 1,000 unit PO DAILY 02/20/15 D3] Ropinirole HCl [Requip] 1 mg PO BID 02/20/15 Sertraline HCl [Zoloft] 50 mg PO DAILY 02/20/15 Tacrolimus Anhydrous [Prograf] 0.5 mg PO DAILY 03/18/16 Trazodone HCl 100 mg PO QHS 03/18/16 Furosemide 60 mg PO BID 06/19/16 Levothyroxine [Synthroid] 25 mcg PO DAILY 06/19/16 Ferrous Sulfate [Iron] 325 mg PO DAILY 07/19/16 Sirolimus 1 mg PO DAILY 08/01/16 Labetalol [Trandate (Beta Dragan)] 600 mg PO BID 08/20/16 Atorvastatin Calcium [Lipitor] 10 mg PO QHS 10/19/16 Apremilast [Otezla] 30 mg PO BID 01/15/18 Cyanocobalamin (Vitamin B-12) 1,000 mcg PO DAILY 05/29/18 [Vitamin B-12] Insulin Aspart [Novolog Flexpen] 0 units SC TID 05/29/18 Insulin Aspart [Novolog Flexpen] 8 units SC BIDCM 05/29/18 Insulin Aspart [Novolog Flexpen] 14 units SC QHS 05/29/18 Insulin Glargine,Hum.rec.anlog 40 unit SQ BID 05/29/18 [Lantus Solostar] Desoximetasone [Topicort] 60 gm TP PRN PRN 07/04/18 - Social History SMOKING STATUS:: Never smoker Vital Signs Temp Pulse Resp BP Pulse Ox 98.0 F 80 18 128/59 H 99 10/10/18 12:18 10/10/18 12:18 10/10/18 12:18 10/10/18 12:18 10/10/18 12:18 Oxygen Delivery Method Room Air Weight: 110.223 kg Body Mass Index (BMI) 40.4 Finger Stick Blood Glucose 427 Laboratory Tests Past 24 Hrs 10/10/18 10/10/18 10/10/18 09:45 09:45 09:45 WBC 5.7 RBC 4.60 Hgb 10.7 L Hct 35.6 L MCV 77.4 L MCH 23.3 L MCHC 30.1 L RDW Std Deviation 55.4 H RDW Coeff of Tami 19.8 H Plt Count 109 L MPV 9.8 Immature Gran % (Auto) 0.700 Neut % (Auto) 84.1 H Lymph % (Auto) 8.1 L Woodson % (Auto) 6.4 Eos % (Auto) 0.7 Baso % (Auto) 0.0 Absolute Neuts (auto) 4.8 Absolute Lymphs (auto) 0.46 L Nucleated RBC % 0 ESR 37 H Sodium 133 L Potassium 5.1 Chloride 103 Carbon Dioxide 23.0 Anion Gap 7 BUN 56 H Creatinine 2.31 H Estim Creat Clear Calc 23.01 Est GFR (MDRD) Af Amer 28 L Est GFR (MDRD) Non-Af 23 L BUN/Creatinine Ratio 24.2 H Glucose 185 H Calcium 8.6 Total Bilirubin 1.10 H Direct Bilirubin 0.21 AST 10 L ALT 14 Alkaline Phosphatase 66 Total Protein 7.3 Albumin 3.3 Globulin 4.0 - Other Studies Radiology: [] reviewed Other Studies: [] Route of nutrition/ use of supplements: [] Nutritional Intake: [] IV Site: [] Paz Catheter: [] - Physical Exam General: Alert, Oriented x3, Cooperative, No apparent distress HEENT: Atraumatic, PERRLA, EOMI Neck: Supple, No Nodes Lungs: Clear to auscultation, Normal air movement Cardiovascular: Regular rate, Regular Rhythm Abdomen: Soft, Non Tender, Non-Distended Extremities: Edema Skin: Rash Present - R flank some redness, warmth, induration, no drainage or ulceration IV Site: Peripheral, without redness Musculoskeletal: No Tenderness to Palpation of Joints or Extremities Neurological: Cranial nerves II-XII grossly intact - Assessment/Plan Antibiotics: [] Assessment/Plan: [] recurrent cellulitis, responded to vanc in past. Will restart. If better tomorrow, plan would be for home on po linezolid 600mg bid for 5 day course. She is on low dose zoloft, and with short course should be low risk for serotonin syndrome. Very limited abx options otherwise. Recommend outpt derm followup for bx given unusual location and chronicity. Will follow, d/w Dr. Maurer.
--- NOTE | 2018-10-10 17:29 | PCM.RX.CS ---
Consult Pharmacy has been consulted to manage selected antiobiotic: Vancomycin Type of Consult: New start Suspected Infection: Skin/Soft tissue Prior Doses of Antibiotics Received/Current Regimen: VANCOMYCIN 1500MG IV X1 IN ER 10/10/18 @1131 Labs: Sodium 133 mmol/L (136-145) L 10/10/18 09:45 Potassium 5.1 mmol/L (3.5-5.1) 10/10/18 09:45 Chloride 103 mmol/L (98-107) 10/10/18 09:45 Carbon Dioxide 23.0 mmol/L (21.0-32.0) 10/10/18 09:45 7 (5-15) 10/10/18 09:45 BUN 56 mg/dL (7-18) H 10/10/18 09:45 2.31 mg/dL (0.55-1.02) H 10/10/18 09:45 Est GFR (MDRD) Af Amer 28 mL/min (>60) L 10/10/18 09:45 Est GFR (MDRD) Non-Af 23 mL/min (>60) L 10/10/18 09:45 24.2 RATIO (10-20) H 10/10/18 09:45 Glucose 185 mg/dL (74-106) H 10/10/18 09:45 Weight used for dosin kg Estimated Creatinine Clearance: 23 ML/MIN Goal Trough: 10-15 mcg/mL Pharmacy Plan for Drug Dosing: PLAN/RECOMMENDATIONS 1. Vancomycin 1000mg IV Q24hr to start 10/11/18 @1100 2. Trough prior to 3rd total per protocol 10/12/18 @1030 3. Pharmacy Service will continue to monitor and adjust dosing as required.
[2018-10-10] MEDS: Insulin Lispro 100 UNIT/ML INSULN.PEN 14 UNIT SC (17:33)
[2018-10-10] MEDS: Insulin Lispro 100 UNIT/ML INSULN.PEN SC (17:35)
[2018-10-10] MEDS: Furosemide 20 MG Tablet 60 MG PO (17:36)
[2018-10-10 19:30] VITALS: O2SAT 96
[2018-10-10 20:26] VITALS: BP 143/61; PULSE 78; RESP 18; TEMP 37.4; O2SAT 95
[2018-10-10] MEDS: traZODone 100 MG Tablet PO (22:09)
[2018-10-10] MEDS: Atorvastatin Calcium 10 MG Tablet PO (22:10)
[2018-10-10] MEDS: Pramipexole Di-HCl 0.5 MG Tablet PO (22:10)
[2018-10-10] MEDS: Labetalol 200 MG Tablet 600 MG PO (22:13)
[2018-10-10 22:21] LABS: Bedside Glucose 131 mg/dL (70-110)
[2018-10-11 02:00] LABS: Bedside Glucose 193 mg/dL (70-110)
[2018-10-11 02:02] VITALS: BP 128/66; PULSE 71; RESP 18; TEMP 36.7; O2SAT 95
[2018-10-11] MEDS: Levothyroxine 25 MCG TABLET PO (04:45)
[2018-10-11 07:11] VITALS: O2SAT 94
[2018-10-11 07:29] LABS: Absolute Lymphocyte Count 0.43 X10^3/uL (0.83-4.51); Absolute Neutrophil Count 2.5 X10^3/uL (2.0-7.7); Basophil# 0.01 X10^3/uL; Basophil% 0.3 % (0-1); Hematocrit 31.5 % (37-47); Hemoglobin 9.1 g/dL (12.0-15.0); Lymphocyte # 0.43 X10^3/ul (4.0); Mean Corp Hgb Conc 28.9 g/dL (32-36); Mean Corpuscular Volume 79.7 fL (81-99); Monocyte# 0.27 X10^3/uL; Monocyte% 8.2 % (0-10); NRBC Flagged by Analyzer 0 % (0-5); Neutrophil # 2.46 X10^3/uL (2.7-7.7); Neutrophil % 74.3 % (47-70); POSITIVE DIFFERENTIAL YES; Platelet Count 87 K/mm3 (150-450); RBC Distribution Width CV 19.9 % (11.6-14.6); RBC Distribution Width SD 57.5 fl (35.1-43.9); Red Blood Count 3.95 M/mm3 (4.2-5.4); White Blood Count 3.3 K/mm3 (4.4-11.0)
[2018-10-11 07:30] LABS: Differential Indicated SCAN CRITERIA MET
[2018-10-11] MEDS: Ferrous Sulfate 325 MG Tablet PO (07:36)
[2018-10-11] MEDS: Cyanocobalamin 500 MCG Tablet 1000 MCG PO (07:36)
[2018-10-11] MEDS: Furosemide 20 MG Tablet 60 MG PO ×2 (07:36→17:08)
[2018-10-11] MEDS: Ascorbic Acid 500 MG Tablet 1000 MG PO (07:36)
[2018-10-11] MEDS: Labetalol 200 MG Tablet 600 MG PO ×2 (07:36→21:50)
[2018-10-11] MEDS: Enoxaparin 30 MG/0.3 ML Syringe SC (07:37)
[2018-10-11] MEDS: Pramipexole Di-HCl 0.5 MG Tablet PO ×2 (07:37→21:50)
[2018-10-11] MEDS: Insulin Lispro 100 UNIT/ML INSULN.PEN 8 UNIT SC ×2 (07:38→12:22)
[2018-10-11] MEDS: Sertraline 50 MG Tablet PO (07:44)
[2018-10-11] MEDS: Clobetasol Propionate 0.05% Cream 1 APPLIC TOPICAL (07:45)
[2018-10-11] MEDS: Menthol/Lanolin/Calamine/Znox 113 GM Tube 1 APPLIC TOPICAL ×2 (07:48→21:48)
[2018-10-11 07:56] LABS: Bedside Glucose 144 mg/dL (70-110)
--- NOTE | 2018-10-11 07:56 | NURSING ---
Patient requested all morning medications with breakfast to follow her medication schedule at home.
[2018-10-11 07:57] VITALS: BP 130/55; PULSE 70; RESP 18; TEMP 37; O2SAT 98
[2018-10-11 08:00] LABS: Anion Gap 10 (5-15); BUN 64 mg/dL (7-18); Chloride 107 mmol/L (98-107); Creatinine, Serum 2.37 mg/dL (0.55-1.02); EST Glomerular Filtration Rate 22 mL/min (>60); Est Glom Filt Rate - Afr Amer 27 mL/min (>60); Estimated Creatinine Clearance 22.43 ml/min; Glucose 139 mg/dL (74-106); Magnesium 1.9 mg/dL (1.6-2.6); Potassium 4.6 mmol/L (3.5-5.1); Sodium Level 137 mmol/L (136-145)
[2018-10-11] MEDS: 0.9% NaCl Peripheral Flush Adult/Peds IV (10:51)
[2018-10-11] MEDS: Vancomycin IV 1,000 MG/200 ML BAG 200 MG IV (10:51)
--- NOTE | 2018-10-11 10:52 | PCM.PN.HOSP ---
Subjective: Patient had low-grade temperature 99.3 last evening. Tachycardia or tachypnea. Patient rash on the right flank and gluteal region has a spread. Vitals/I&O's: Vital Signs Temp Pulse Resp BP Pulse Ox 98.6 F 70 18 130/55 H 98 10/11/18 07:57 10/11/18 07:57 10/11/18 07:57 10/11/18 07:57 10/11/18 07:57 Oxygen Delivery Method Room Air Weight: 243 lb Body Mass Index (BMI) 40.4 Finger Stick Blood Glucose 427 Intake and Output for Last 24 Hours 10/09/18 10/10/18 10/11/18 23:59 23:59 23:59 Intake Total 540 / 1390 1420 / 1420 Output Total 200 / 400 400 / 400 Balance 340 / 990 1020 / 1020 General: Alert, Oriented x3, Cooperative HEENT: Atraumatic, PERRLA, EOMI, Normocephalic Neck: Supple, No JVD, Negative Carotid Bruits Lungs: Clear to auscultation, No rhonchi, No wheeze, No rales, Diminished Cardiovascular: Regular rate, Regular Rhythm, Normal S1, Normal S2, No murmurs Abdomen: Bowel Sounds Present, Soft, Non Tender, Non-Distended Extremities: Capillary Refill Less than 3 Seconds, Edema Skin: Rash Present - The rash has become more extensive involving the right flank, paraspinal region and right buttock. Small region on the left flank. it is tender seems panniculitis Musculoskeletal: No Tenderness to Palpation of Joints or Extremities, Arthritic Changes Neurological: Cranial nerves II-XII grossly intact, Deep Tendon Reflexes 2+/4 and Symmetrical, Neuro grossly intact Psych/Mental Status: Normal Affect, Appropriate Laboratory Results 10/10/18 09:45: Total Bilirubin 1.10 H, Direct Bilirubin 0.21, AST 10 L, ALT 14, Alkaline Phosphatase 66, Total Protein 7.3, Albumin 3.3, Globulin 4.0 10/10/18 14:13: POC Glucose 200 H 10/10/18 16:50: POC Glucose 193 H 10/10/18 22:06: POC Glucose 131 H 10/11/18 07:10: Sodium 137, Potassium 4.6, Chloride 107, Carbon Dioxide 20.0 L, Anion Gap 10, BUN 64 H, Creatinine 2.37 H, Estim Creat Clear Calc 22.43, Est GFR (MDRD) Af Amer 27 L, Est GFR (MDRD) Non-Af 22 L, BUN/Creatinine Ratio 27.0 H, Glucose 139 H, Calcium 8.0 L, Magnesium 1.9 10/11/18 07:10: WBC 3.3 L, RBC 3.95 L, Hgb 9.1 L, Hct 31.5 L, MCV 79.7 L, MCH 23.0 L, MCHC 28.9 L, RDW Std Deviation 57.5 H, RDW Coeff of Tami 19.9 H, Plt Count 87 L, MPV 10.0, Immature Gran % (Auto) 1.200 H, Neut % (Auto) 74.3 H, Lymph % (Auto) 13.0 L, Casey % (Auto) 8.2, Eos % (Auto) 3.0, Baso % (Auto) 0.3, Absolute Neuts (auto) 2.5, Absolute Lymphs (auto) 0.43 L, Nucleated RBC % 0 10/11/18 07:33: POC Glucose 144 H Current Medications Acetaminophen (Tylenol) 650 mg PO Q6H PRN PRN PRN Reason: Mild Pain (1-3)/Temp > 100.7 F Albuterol Sulfate (Ventolin Aerosols) 2.5 mg INHALATION Q2H PRN PRN PRN Reason: Shortness of Breath/Wheezing Ascorbic Acid (Vitamin C) 1,000 mg PO DAILYCM [facility] Last Admin: 10/11/18 07:36 Dose: 1,000 mg Documented by: Atorvastatin Calcium (Lipitor) 10 mg PO QHS [facility] Last Admin: 10/10/18 22:10 Dose: 10 mg Documented by: Bisacodyl (Dulcolax) 10 mg RECTAL DAILY PRN PRN PRN Reason: Constipation Calamine/Phenol (Calmoseptine Ointment) 1 applic TOPICAL BID [facility]; Protocol Last Admin: 10/11/18 07:48 Dose: 1 applicatio Documented by: [facility] Admin: 10/11/18 07:36 Dose: 1,000 unit Documented by: Clobetasol Propionate (Temovate Cream (Bkc)) 1 applic TOPICAL BID [facility] Last Admin: 10/11/18 07:45 Dose: 1 applicatio Documented by: Cyanocobalamin (Vitamin B12) 1,000 mcg PO DAILYCM [facility] Last Admin: 10/11/18 07:36 Dose: 1,000 mcg Documented by: Dextrose (D50w Syringe) 0 gm IV X1 PRN; Protocol PRN Reason: Hypoglycemia Enoxaparin Sodium (Lovenox) 30 mg SC DAILY [facility] Last Admin: 10/11/18 07:37 Dose: 30 mg Documented by: Ferrous Sulfate (Ferrous Sulfate) 325 mg PO DAILYCM [facility] Last Admin: 10/11/18 07:36 Dose: 325 mg Documented by: Furosemide (Lasix) 60 mg PO BIDLX [facility] Last Admin: 10/11/18 07:36 Dose: 60 mg Documented by: Glucagon () 1 mg IM .X1 PRN PRN Reason: Hypoglycemia Vancomycin IV Pharmacy to Dose (1 ea/ Sodium Chloride) 500 mls @ 250 mls/hr IV PRN PRN; Protocol PRN Reason: Rx to Dose Vancomycin HCl (Vancomycin) 1,000 mg in 200 mls @ 200 mls/hr IV Q24H [facility] Insulin Glargine (Lantus (Bkc)) 40 units SC BID [facility] Last Admin: 10/10/18 22:09 Dose: Not Given Documented by: Insulin Human Lispro (Humalog Kwikpen (Bkc)) 14 unit SC 1700 [facility] Last Admin: 10/10/18 17:33 Dose: 14 units Documented by: Insulin Human Lispro (Humalog Kwikpen (Bkc)) 8 unit SC 0800,1200 [facility] Last Admin: 10/11/18 07:38 Dose: 8 u Documented by: Insulin Human Lispro (Humalog Kwikpen (Bkc)) 0 unit SC ACHS [facility]; Protocol Last Admin: 10/11/18 07:44 Dose: Not Given Documented by: Labetalol HCl (Trandate) 600 mg PO BID [facility] Last Admin: 10/11/18 07:36 Dose: 600 mg Documented by: Levothyroxine Sodium (Synthroid) 25 mcg PO DAILY@0600 [facility] Last Admin: 10/11/18 04:45 Dose: 25 mcg Documented by: Melatonin (Melatonin) 3 mg PO QHS PRN PRN PRN Reason: INSOMNIA Morphine Sulfate () 2 mg IV Q3H PRN PRN PRN Reason: Severe pain (7-10) Nystatin (Mycostatin) 1 applic TOPICAL BID [facility]; Protocol Last Admin: 10/11/18 07:45 Dose: Not Given Documented by: Ondansetron HCl (Zofran) 4 mg IV Q8H PRN PRN PRN Reason: NAUSEA/VOMITING Oxycodone HCl (Oxyir) 5 mg PO Q4H PRN PRN PRN Reason: Moderate Pain (4-6/10) Polyethylene Glycol (Miralax) 17 gm PO DAILY [facility] Last Admin: 10/11/18 07:37 Dose: Not Given Documented by: Pramipexole Dihydrochloride (Mirapex) 0.5 mg PO BID [facility] Last Admin: 10/11/18 07:37 Dose: 0.5 mg Documented by: Prochlorperazine Edisylate (Compazine Iv) 5 mg IV Q4H PRN PRN PRN Reason: Breakthrough nausea/vomiting Sertraline HCl (Zoloft) 50 mg PO DAILY [facility] Last Admin: 10/11/18 07:44 Dose: 50 mg Documented by: Sirolimus (Rapamune) 1 mg PO DAILY [facility] Last Admin: 10/10/18 15:02 Dose: 1 mg Documented by: Sodium Chloride () 10 - 40 ml IV UD PRN PRN Reason: SALINE FLUSH Tacrolimus (Prograf) 0.5 mg PO DAILY [facility] Last Admin: 10/11/18 07:41 Dose: 0.5 mg Documented by: Trazodone HCl (Desyrel) 100 mg PO QHS [facility] Last Admin: 10/10/18 22:09 Dose: 100 mg Documented by: Medical Necessity - Tobacco Use Smoking Status: Never smoker Assessment/Plan All Active Problems (Last Reviewed 09/13/18 @ 12:57 by Carlton Pollard DO) Severe sepsis (Resolved) Dehydration (Resolved) Acute kidney injury superimposed on chronic kidney disease (Resolved) Diastolic CHF, acute (Resolved) Hypomagnesemia (Resolved) Acute respiratory failure with hypoxia (Resolved) Pleural effusion (Resolved) Cellulitis (Resolved) Diabetic foot ulcer (Resolved) Foreign body in right foot with infection (Resolved) Right foot pain (Resolved) Cellulitis of right abdominal wall (Acute) HOFFMAN (nonalcoholic steatohepatitis) (Resolved) This 63-year-old female with history of Hoffman related cirrhosis status post OLT came to ER with concern of cellulitis mainly over right flank and gluteal region. 1. Recurrent cellulitis, most likely deep panniculitis complicated with intertriginous dermatitis/chronic psoriasis: Patient is admitted as an observation. Patient was given vancomycin in ED and is being continued she further states she was admitted 5 times for cellulitis. Patient seen by Dr. Jordan and he thinks recurrent cellulitis. While the cellulitis gets better, patient will be discharged on Zyvox 600 mg twice daily for 5 days Started on nystatin cream, calmoseptine and desoximetasone 60 g twice daily. Patient had desoximetasone cream at home but she ran out. She needs more skin care discussed with the patient. 2. 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 She was told to continue both. Home dose of Prograf and sirolimus was continued. 3. CKD stage IV possible secondary to side effect of Prograf and other medications and diabetic nephropathy: Creatinine is stable since September running between 2.0-2.3. BUN about 55-60. Creatinine stable 2.37. 4. Diabetes mellitus type II: Glucose is relatively controlled runs between 100-1 85. Accu-Chek before meals and at bedtime and on Lantus and Humalog schedule pre-meal and sliding scale. Titrate the dose of insulin as per Accu-Cheks 5. Multiple comorbidities including obstructive sleep apnea, iron deficiency anemia, chronic diastolic heart failure, chronic microcytic anemia: Stable. H&H 10.7/35.6. MCV low. Chronic thrombocytopenia. Platelet runs around 100,000. 6. DVT prophylaxis: On Lovenox 30 mg subcu daily adjusted to creatinine clearance. Discontinue if platelet count drops less than 50,000 or hemoglobin less than 8 g% Morbid obesity: BMI is 40.4. Needs more PT physical therapy, exercise and weight loss
[2018-10-11] MEDS: SIROLIMUS 1 MG TABLET PO (10:53)
[2018-10-11 11:10] LABS: Bedside Glucose 175 mg/dL (70-110)
[2018-10-11] MEDS: Insulin Lispro 100 UNIT/ML INSULN.PEN SC (12:22)
[2018-10-11 12:31] LABS: Bedside Glucose 189 mg/dL (70-110)
[2018-10-11 14:30] VITALS: BP 146/59; PULSE 69; RESP 18; TEMP 36.8; O2SAT 97
[2018-10-11] MEDS: Insulin Lispro 100 UNIT/ML INSULN.PEN 14 UNIT SC (17:07)
[2018-10-11 17:15] LABS: Bedside Glucose 123 mg/dL (70-110)
[2018-10-11 19:55] VITALS: BP 145/70; PULSE 68; RESP 17; TEMP 36.8; O2SAT 99
[2018-10-11] MEDS: Nystatin Ointment 1 APPLIC TOPICAL (20:01)
[2018-10-11] MEDS: traZODone 100 MG Tablet PO (21:49)
[2018-10-11] MEDS: Atorvastatin Calcium 10 MG Tablet PO (21:50)
[2018-10-11 22:41] LABS: Bedside Glucose 86 mg/dL (70-110)
[2018-10-12 01:50] VITALS: BP 129/70; PULSE 66; RESP 16; TEMP 36.7; O2SAT 98
[2018-10-12] MEDS: Levothyroxine 25 MCG TABLET PO (05:38)
[2018-10-12] MEDS: oxyCODONE 5 MG Tablet PO (05:38)
[2018-10-12 06:16] LABS: Anion Gap 8 (5-15); BUN 71 mg/dL (7-18); BUN/Creat Ratio 30.6 RATIO (10-20); Chloride 107 mmol/L (98-107); Creatinine, Serum 2.32 mg/dL (0.55-1.02); EST Glomerular Filtration Rate 23 mL/min (>60); Est Glom Filt Rate - Afr Amer 27 mL/min (>60); Estimated Creatinine Clearance 22.91 ml/min; Glucose 119 mg/dL (74-106); Potassium 4.9 mmol/L (3.5-5.1); Sodium Level 137 mmol/L (136-145)
[2018-10-12 06:17] LABS: Absolute Lymphocyte Count 0.61 X10^3/uL (0.83-4.51); Absolute Neutrophil Count 2.7 X10^3/uL (2.0-7.7); Basophil# 0.01 X10^3/uL; Basophil% 0.2 % (0-1); Eosinophils% 4.9 % (0-5); Hematocrit 30.9 % (37-47); Hemoglobin 9.1 g/dL (12.0-15.0); Lymphocyte # 0.61 X10^3/ul (4.0); Lymphocyte % 15.1 % (19-41); Mean Corp Hgb Conc 29.4 g/dL (32-36); Mean Corpuscular Hgb 23.3 pg (27.0-32.0); Monocyte# 0.46 X10^3/uL; Monocyte% 11.4 % (0-10); NRBC Flagged by Analyzer 0 % (0-5); Neutrophil # 2.73 X10^3/uL (2.7-7.7); Neutrophil % 67.4 % (47-70); Platelet Count 79 K/mm3 (150-450); RBC Distribution Width CV 19.7 % (11.6-14.6); RBC Distribution Width SD 56.7 fl (35.1-43.9); Red Blood Count 3.91 M/mm3 (4.2-5.4); White Blood Count 4.1 K/mm3 (4.4-11.0)
[2018-10-12 06:31] LABS: Bedside Glucose 134 mg/dL (70-110)
[2018-10-12 07:07] VITALS: O2SAT 89
[2018-10-12 07:51] VITALS: BP 140/70; PULSE 65; RESP 18; TEMP 36.6; O2SAT 98
[2018-10-12] MEDS: Ferrous Sulfate 325 MG Tablet PO (07:52)
[2018-10-12] MEDS: Ascorbic Acid 500 MG Tablet 1000 MG PO (07:52)
[2018-10-12] MEDS: Cyanocobalamin 500 MCG Tablet 1000 MCG PO (07:53)
[2018-10-12] MEDS: Insulin Lispro 100 UNIT/ML INSULN.PEN 10 UNIT SC (07:54)
[2018-10-12] MEDS: Pramipexole Di-HCl 0.5 MG Tablet PO ×2 (10:36→21:35)
[2018-10-12] MEDS: Sertraline 50 MG Tablet PO (10:36)
[2018-10-12] MEDS: Labetalol 200 MG Tablet 600 MG PO ×2 (10:36→21:33)
[2018-10-12] MEDS: Nystatin Ointment 1 APPLIC TOPICAL (10:40)
[2018-10-12] MEDS: Menthol/Lanolin/Calamine/Znox 113 GM Tube 1 APPLIC TOPICAL ×2 (10:43→21:44)
[2018-10-12] MEDS: Furosemide 20 MG Tablet 60 MG PO ×2 (10:44→16:08)
[2018-10-12 11:16] LABS: Vancomycin, Trough Level 16.9 ug/mL (5.0-15.0)
[2018-10-12] MEDS: Vancomycin IV 1,000 MG/200 ML BAG 200 MG IV (11:40)
[2018-10-12] MEDS: 0.9% NaCl Peripheral Flush Adult/Peds IV (11:40)
[2018-10-12] MEDS: SIROLIMUS 1 MG TABLET PO (11:47)
[2018-10-12 11:57] LABS: Bedside Glucose 121 mg/dL (70-110)
--- NOTE | 2018-10-12 12:01 | PCM.RX.CS ---
Consult Pharmacy has been consulted to manage selected antiobiotic: Vancomycin Type of Consult: Follow-up Suspected Infection: Skin/Soft tissue Prior Doses of Antibiotics Received/Current Regimen: 1 gm iv q24h Labs: Sodium 137 mmol/L (136-145) 10/12/18 05:00 Potassium 4.9 mmol/L (3.5-5.1) 10/12/18 05:00 Chloride 107 mmol/L (98-107) 10/12/18 05:00 Carbon Dioxide 22.0 mmol/L (21.0-32.0) 10/12/18 05:00 8 (5-15) 10/12/18 05:00 BUN 71 mg/dL (7-18) H 10/12/18 05:00 2.32 mg/dL (0.55-1.02) H 10/12/18 05:00 Est GFR (MDRD) Af Amer 27 mL/min (>60) L 10/12/18 05:00 Est GFR (MDRD) Non-Af 23 mL/min (>60) L 10/12/18 05:00 30.6 RATIO (10-20) H 10/12/18 05:00 Glucose 119 mg/dL (74-106) H 10/12/18 05:00 Vancomycin Trough 16.9 ug/mL (5.0-15.0) H 10/12/18 10:24 Microbiology: Microbiology 10/10/18 11:00 Blood Culture (Wb) - No Site/Description Given Blood Culture - Preliminary No growth in 48 hours. 10/10/18 09:43 Blood Culture (Wb) - Anticubital Left Blood Culture - Preliminary No growth in 48 hours. 10/12/18 05:33 Stool Stool Occult Blood (TOMASZ) - Final Occult Blood Positive Weight used for dosin kg Estimated Creatinine Clearance: ~23 ml/min Goal Trough: 10-15 mcg/mL Pharmacy Plan for Drug Dosing: Trough level today 10.12.18 was 16.9 (goal 10-15mcg/ml). Renal function reviewed. Will decrease dose to 750mg iv q24h starting 10.13.18 and repeat trough level on 10.15.18. Pharmacy Service will continue to monitor and adjust dosing as required. Follow-Up Labs: Trough Vancomycin - 10.15.18 @1030 before 1100 dose
--- NOTE | 2018-10-12 12:16 | PN_ITS ---
Subjective: Patient did not have any fever or chills or tachycardia. Blood pressure is stable. No hypoxia. Patient is still complaining of pain over right flank skin and subcutaneous soft tissue. Redness is better. Vitals/I&O's: Vital Signs Temp Pulse Resp BP Pulse Ox 97.9 F 65 18 140/70 H 98 10/12/18 07:51 10/12/18 07:51 10/12/18 07:51 10/12/18 07:51 10/12/18 07:51 Oxygen Delivery Method Room Air Weight: 243 lb Body Mass Index (BMI) 40.4 Finger Stick Blood Glucose 427 Intake and Output for Last 24 Hours 10/10/18 10/11/18 10/12/18 23:59 23:59 23:59 Intake Total 540 / 1390 2983 / 2983 120 / 120 Output Total 200 / 400 2150 / 2150 450 / 450 Balance 340 / 990 833 / 833 -330 / -330 General: Alert, Oriented x3, Cooperative HEENT: Atraumatic, PERRLA, EOMI, Normocephalic Neck: Supple, No JVD, Negative Carotid Bruits Lungs: Clear to auscultation, Normal air movement, No rhonchi, No wheeze, No rales Cardiovascular: Regular rate, Regular Rhythm, Normal S1, Normal S2, No murmurs Abdomen: Bowel Sounds Present, Soft, Non Tender, Non-Distended Extremities: No edema, Capillary Refill Less than 3 Seconds Skin: Rash Present - The rash is better and fading. It involves the right flank, paraspinal region and superior part of right buttock. Small region on the left flank. it is tender seems panniculitis Musculoskeletal: No Tenderness to Palpation of Joints or Extremities Neurological: Cranial nerves II-XII grossly intact, Deep Tendon Reflexes 2+/4 and Symmetrical, Neuro grossly intact Psych/Mental Status: Normal Affect, Appropriate Microbiology Past 72 Hours 10/10/18 11:00 Blood Culture (Wb) - No Site/Description Given Blood Culture - Preliminary No growth in 48 hours. 10/10/18 09:43 Blood Culture (Wb) - Anticubital Left Blood Culture - Preliminary No growth in 48 hours. 10/12/18 05:33 Stool Stool Occult Blood (TOMASZ) - Final Occult Blood Positive Laboratory Results 10/11/18 12:21: POC Glucose 189 H 10/11/18 17:06: POC Glucose 123 H 10/11/18 21:47: POC Glucose 86 10/12/18 05:00: WBC 4.1 L, RBC 3.91 L, Hgb 9.1 L, Hct 30.9 L, MCV 79.0 L, MCH 23.3 L, MCHC 29.4 L, RDW Std Deviation 56.7 H, RDW Coeff of Tami 19.7 H, Plt Count 79 L, MPV 10.0, Immature Gran % (Auto) 1.000 H, Neut % (Auto) 67.4, Lymph % (Auto) 15.1 L, [place] % (Auto) 11.4 H, Eos % (Auto) 4.9, Baso % (Auto) 0.2, Absolute Neuts (auto) 2.7, Absolute Lymphs (auto) 0.61 L, Nucleated RBC % 0 10/12/18 05:00: Sodium 137, Potassium 4.9, Chloride 107, Carbon Dioxide 22.0, Anion Gap 8, BUN 71 H, Creatinine 2.32 H, Estim Creat Clear Calc 22.91, Est GFR (MDRD) Af Amer 27 L, Est GFR (MDRD) Non-Af 23 L, BUN/Creatinine Ratio 30.6 H, Glucose 119 H, Calcium 8.0 L 10/12/18 06:26: POC Glucose 134 H 10/12/18 10:24: Vancomycin Trough 16.9 H 10/12/18 11:44: POC Glucose 121 H Current Medications Acetaminophen (Tylenol) 650 mg PO Q6H PRN PRN PRN Reason: Mild Pain (1-3)/Temp > 100.7 F Albuterol Sulfate (Ventolin Aerosols) 2.5 mg INHALATION Q2H PRN PRN PRN Reason: Shortness of Breath/Wheezing Ascorbic Acid (Vitamin C) 1,000 mg PO DAILYCM [facility] Last Admin: 10/12/18 07:52 Dose: 1,000 mg Documented by: Atorvastatin Calcium (Lipitor) 10 mg PO QHS [facility] Last Admin: 10/11/18 21:50 Dose: 10 mg Documented by: Bisacodyl (Dulcolax) 10 mg RECTAL DAILY PRN PRN PRN Reason: Constipation Calamine/Phenol (Calmoseptine Ointment) 1 applic TOPICAL BID [facility]; Protocol Last Admin: 10/12/18 10:43 Dose: 1 applicatio Documented by: Cholecalciferol ([facility]itamin [facility]) [facility] Admin: 10/12/18 07:55 Dose: 1,000 unit Documented by: Cyanocobalamin (Vitamin B12) [facility] Last Admin: 10/12/18 07:53 Dose: 1,000 mcg Documented by: Dextrose (D50w Syringe) 0 gm IV X1 PRN; Protocol PRN Reason: Hypoglycemia Ferrous Sulfate (Ferrous Sulfate) [facility] Last Admin: 10/12/18 07:52 Dose: 325 mg Documented by: Furosemide (Lasix) 60 mg PO BIDLX [facility] Last Admin: 10/12/18 10:44 Dose: 60 mg Documented by: Glucagon () 1 mg IM .X1 PRN PRN Reason: Hypoglycemia Vancomycin IV Pharmacy to Dose (1 ea/ Sodium Chloride) 500 mls @ 250 mls/hr IV PRN PRN; Protocol PRN Reason: Rx to Dose Vancomycin HCl 750 mg/ Sodium (Chloride) 265 mls @ 250 mls/hr IV Q24H [facility] Insulin Glargine (Lantus (Bkc)) 45 units SC BID [facility] Last Admin: 10/12/18 10:44 Dose: 45 u Documented by: Insulin Human Lispro (Humalog Kwikpen (Bkc)) 14 unit SC 1700 [facility] Last Admin: 10/11/18 17:07 Dose: 14 units Documented by: Insulin Human Lispro (Humalog Kwikpen (Bkc)) 0 unit SC ACHS [facility]; Protocol Last Admin: 10/12/18 11:46 Dose: Not Given Documented by: Insulin Human Lispro (Humalog Kwikpen (Bkc)) 10 unit SC 0800,1200 [facility] Last Admin: 10/12/18 11:45 Dose: Not Given Documented by: Labetalol HCl (Trandate) 600 mg PO BID [facility] Last Admin: 10/12/18 10:36 Dose: 600 mg Documented by: Levothyroxine Sodium (Synthroid) 25 mcg PO DAILY@0600 [facility] Last Admin: 10/12/18 05:38 Dose: 25 mcg Documented by: Melatonin (Melatonin) 3 mg PO QHS PRN PRN PRN Reason: INSOMNIA Morphine Sulfate () 2 mg IV Q3H PRN PRN PRN Reason: Severe pain (7-10/10) Nystatin (Mycostatin) 1 applic TOPICAL BID [facility]; Protocol Last Admin: 10/12/18 10:40 Dose: 1 applicatio Documented by: Ondansetron HCl (Zofran) 4 mg IV Q8H PRN PRN PRN Reason: NAUSEA/VOMITING Oxycodone HCl (Oxyir) 5 mg PO Q4H PRN PRN PRN Reason: Moderate Pain (4-6/10) Last Admin: 10/12/18 05:38 Dose: 5 mg Documented by: Polyethylene Glycol (Miralax) 17 gm PO DAILY [facility] Last Admin: 10/12/18 10:39 Dose: Not Given Documented by: Pramipexole Dihydrochloride (Mirapex) 0.5 mg PO BID [facility] Last Admin: 10/12/18 10:36 Dose: 0.5 mg Documented by: Prochlorperazine Edisylate (Compazine Iv) 5 mg IV Q4H PRN PRN PRN Reason: Breakthrough nausea/vomiting Sertraline HCl (Zoloft) 50 mg PO DAILY [facility] Last Admin: 10/12/18 10:36 Dose: 50 mg Documented by: Sirolimus (Rapamune) 1 mg PO DAILY [facility] Last Admin: 10/12/18 11:47 Dose: 1 mg Documented by: Sodium Chloride () 10 - 40 ml IV UD PRN PRN Reason: SALINE FLUSH Last Admin: 10/12/18 11:40 Dose: 10 ml Documented by: Tacrolimus (Prograf) 0.5 mg PO DAILY [facility] Last Admin: 10/12/18 10:35 Dose: 0.5 mg Documented by: Trazodone HCl (Desyrel) 100 mg PO QHS [facility] Last Admin: 10/11/18 21:49 Dose: 100 mg Documented by: Medical Necessity - Tobacco Use Smoking Status: Never smoker Assessment/Plan All Active Problems (Last Reviewed 09/13/18 @ 12:57 by Carlton Pollard DO) Severe sepsis (Resolved) Dehydration (Resolved) Acute kidney injury superimposed on chronic kidney disease (Resolved) Diastolic CHF, acute (Resolved) Hypomagnesemia (Resolved) Acute respiratory failure with hypoxia (Resolved) Pleural effusion (Resolved) Cellulitis (Resolved) Diabetic foot ulcer (Resolved) Foreign body in right foot with infection (Resolved) Right foot pain (Resolved) Cellulitis of right abdominal wall (Acute) HOFFMAN (nonalcoholic steatohepatitis) (Resolved) This 63-year-old female with history of Hoffman related cirrhosis status post OLT came to ER with concern of cellulitis mainly over right flank and gluteal region. 1. Recurrent cellulitis, most likely deep panniculitis complicated with intertriginous dermatitis/chronic psoriasis: Patient is admitted as an observation. Patient was given vancomycin in ED and is being continued she further states she was admitted 5 times for cellulitis. Patient seen by Dr. Jordan and he thinks recurrent cellulitis. He recommended outpatient timber robber consultation. If the cellulitis gets better, patient will be discharged on Zyvox 600 mg twice daily for 5 days Started on nystatin cream, calmoseptine and Eucerin lotion. She needs more skin care discussed with the patient. 2. 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 She was told to continue both. Home dose of Prograf and sirolimus was continued. 3. CKD stage IV possible secondary to side effect of Prograf and other medications and diabetic nephropathy: Creatinine is stable since September running between 2.0-2.3. BUN about 55-60. Creatinine stable 2.37, 2.32. 4. Diabetes mellitus type II: Accu-Chek before meals and at bedtime and on Lantus and Humalog schedule pre-meal and sliding scale. Blood sugars are controlled. Titrate the dose of insulin as per Accu-Cheks 5. Multiple comorbidities including obstructive sleep apnea, iron deficiency anemia, chronic diastolic heart failure, chronic microcytic anemia: Stable. H&H 10.7/35.6. MCV low. Chronic thrombocytopenia. Platelet count is slowly drifting down from 109,002 79,000. H&H also dropped from 9.7-9.1. 6. DVT prophylaxis: Lovenox discontinued. Bilateral SCDs. Stool for occult blood positive Morbid obesity: BMI is 40.4. Needs more PT physical therapy, exercise and weight loss Microbiology Past 72 Hours 10/10/18 11:00 Blood Culture (Wb) - No Site/Description Given Blood Culture - Preliminary No growth in 48 hours. 10/10/18 09:43 Blood Culture (Wb) - Anticubital Left Blood Culture - Preliminary No growth in 48 hours. 10/12/18 05:33 Stool Stool Occult Blood (TOMASZ) - Final Occult Blood Positive Laboratory Results 10/11/18 12:21: POC Glucose 189 H 10/11/18 17:06: POC Glucose 123 H 10/11/18 21:47: POC Glucose 86 10/12/18 05:00: WBC 4.1 L, RBC 3.91 L, Hgb 9.1 L, Hct 30.9 L, MCV 79.0 L, MCH 23.3 L, MCHC 29.4 L, RDW Std Deviation 56.7 H, RDW Coeff of Tami 19.7 H, Plt Count 79 L, MPV 10.0, Immature Gran % (Auto) 1.000 H, Neut % (Auto) 67.4, Lymph % (Auto) 15.1 L, [place] % (Auto) 11.4 H, Eos % (Auto) 4.9, Baso % (Auto) 0.2, Absolute Neuts (auto) 2.7, Absolute Lymphs (auto) 0.61 L, Nucleated RBC % 0 10/12/18 05:00: Sodium 137, Potassium 4.9, Chloride 107, Carbon Dioxide 22.0, Anion Gap 8, BUN 71 H, Creatinine 2.32 H, Estim Creat Clear Calc 22.91, Est GFR (MDRD) Af Amer 27 L, Est GFR (MDRD) Non-Af 23 L, BUN/Creatinine Ratio 30.6 H, Glucose 119 H, Calcium 8.0 L 10/12/18 06:26: POC Glucose 134 H 10/12/18 10:24: Vancomycin Trough 16.9 H 10/12/18 11:44: POC Glucose 121 H Active Medications Acetaminophen (Tylenol) 650 mg PO Q6H PRN PRN PRN Reason: Mild Pain (1-3)/Temp > 100.7 F Albuterol Sulfate (Ventolin Aerosols) 2.5 mg INHALATION Q2H PRN PRN PRN Reason: Shortness of Breath/Wheezing Ascorbic Acid (Vitamin C) 1,000 mg PO DAILYCM [facility] Last Admin: 10/12/18 07:52 Dose: 1,000 mg Documented by: Atorvastatin Calcium (Lipitor) 10 mg PO QHS [facility] Last Admin: 10/11/18 21:50 Dose: 10 mg Documented by: Bisacodyl (Dulcolax) 10 mg RECTAL DAILY PRN PRN PRN Reason: Constipation Calamine/Phenol (Calmoseptine Ointment) 1 applic TOPICAL BID [facility]; Protocol Last Admin: 10/12/18 10:43 Dose: 1 applicatio Documented by: Cholecalciferol (Vitamin D) [facility] Last Admin: 10/12/18 07:55 Dose: 1,000 unit Documented by: Cyanocobalamin (Vitamin B12) 1,000 mcg [facility] Last Admin: 10/12/18 07:53 Dose: 1,000 mcg Documented by: Dextrose (D50w Syringe) 0 gm IV X1 PRN; Protocol PRN Reason: Hypoglycemia Ferrous Sulfate (Ferrous Sulfate) 325 [facility] Last Admin: 10/12/18 07:52 Dose: 325 mg Documented by: Furosemide (Lasix) 60 mg PO BIDLX [facility] Last Admin: 10/12/18 10:44 Dose: 60 mg Documented by: Glucagon () 1 mg IM .X1 PRN PRN Reason: Hypoglycemia Vancomycin IV Pharmacy to Dose (1 ea/ Sodium Chloride) 500 mls @ 250 mls/hr IV PRN PRN; Protocol PRN Reason: Rx to Dose Vancomycin HCl 750 mg/ Sodium (Chloride) 265 mls @ 250 mls/hr IV Q24H [facility] Insulin Glargine (Lantus (Bkc)) 45 units SC BID [facility] Last Admin: 10/12/18 10:44 Dose: 45 u Documented by: Insulin Human Lispro (Humalog Kwikpen (Bkc)) 14 unit SC 1700 [facility] Last Admin: 10/11/18 17:07 Dose: 14 units Documented by: Insulin Human Lispro (Humalog Kwikpen (Bkc)) 0 unit SC ACHS [facility]; Protocol Last Admin: 10/12/18 11:46 Dose: Not Given Documented by: Insulin Human Lispro (Humalog Kwikpen (Bkc)) 10 unit SC 0800,1200 [facility] Last Admin: 10/12/18 11:45 Dose: Not Given Documented by: Labetalol HCl (Trandate) 600 mg PO BID [facility] Last Admin: 10/12/18 10:36 Dose: 600 mg Documented by: Levothyroxine Sodium (Synthroid) 25 mcg PO DAILY@0600 [facility] Last Admin: 10/12/18 05:38 Dose: 25 mcg Documented by: Melatonin (Melatonin) 3 mg PO QHS PRN PRN PRN Reason: INSOMNIA Morphine Sulfate () 2 mg IV Q3H PRN PRN PRN Reason: Severe pain (7-10/10) Nystatin (Mycostatin) 1 applic TOPICAL BID [facility]; Protocol Last Admin: 10/12/18 10:40 Dose: 1 applicatio Documented by: Ondansetron HCl (Zofran) 4 mg IV Q8H PRN PRN PRN Reason: NAUSEA/VOMITING Oxycodone HCl (Oxyir) 5 mg PO Q4H PRN PRN PRN Reason: Moderate Pain (4-6/10) Last Admin: 10/12/18 05:38 Dose: 5 mg Documented by: Polyethylene Glycol (Miralax) 17 gm PO DAILY [facility] Last Admin: 10/12/18 10:39 Dose: Not Given Documented by: Pramipexole Dihydrochloride (Mirapex) 0.5 mg PO BID [facility] Last Admin: 10/12/18 10:36 Dose: 0.5 mg Documented by: Prochlorperazine Edisylate (Compazine Iv) 5 mg IV Q4H PRN PRN PRN Reason: Breakthrough nausea/vomiting Sertraline HCl (Zoloft) 50 mg PO DAILY [facility] Last Admin: 10/12/18 10:36 Dose: 50 mg Documented by: Sirolimus (Rapamune) 1 mg PO DAILY [facility] Last Admin: 10/12/18 11:47 Dose: 1 mg Documented by: Sodium Chloride () 10 - 40 ml IV UD PRN PRN Reason: SALINE FLUSH Last Admin: 10/12/18 11:40 Dose: 10 ml Documented by: Tacrolimus (Prograf) 0.5 mg PO DAILY [facility] Last Admin: 10/12/18 10:35 Dose: 0.5 mg Documented by: Trazodone HCl (Desyrel) 100 mg PO QHS [facility] Last Admin: 10/11/18 21:49 Dose: 100 mg Documented by: Code Visit Inpatient E&M: [id number] [facility] Hosp L3
[2018-10-12 15:51] VITALS: BP 144/68; PULSE 67; RESP 18; TEMP 37.1; O2SAT 98
[2018-10-12 16:20] LABS: Bedside Glucose 133 mg/dL (70-110)
[2018-10-12] MEDS: Atorvastatin Calcium 10 MG Tablet PO (21:35)
[2018-10-12] MEDS: traZODone 100 MG Tablet PO (21:38)
[2018-10-12 21:56] LABS: Bedside Glucose 124 mg/dL (70-110)
[2018-10-12 22:56] VITALS: BP 146/64; PULSE 71; RESP 16; TEMP 36.6; O2SAT 99
[2018-10-13] MEDS: Levothyroxine 25 MCG TABLET PO (04:46)
[2018-10-13 04:49] VITALS: BP 142/60; PULSE 65; RESP 16; TEMP 36.9; O2SAT 98
[2018-10-13 06:40] LABS: Bedside Glucose 90 mg/dL (70-110)
[2018-10-13 08:44] VITALS: BP 150/80; PULSE 71; RESP 18; TEMP 36.7; O2SAT 99
[2018-10-13] MEDS: Ferrous Sulfate 325 MG Tablet PO (09:04)
[2018-10-13] MEDS: Cyanocobalamin 500 MCG Tablet 1000 MCG PO (09:04)
[2018-10-13] MEDS: Ascorbic Acid 500 MG Tablet 1000 MG PO (09:04)
[2018-10-13] MEDS: Menthol/Lanolin/Calamine/Znox 113 GM Tube 1 APPLIC TOPICAL (09:05)
[2018-10-13] MEDS: Furosemide 20 MG Tablet 60 MG PO (09:06)
[2018-10-13] MEDS: Nystatin Ointment 1 APPLIC TOPICAL (09:06)
[2018-10-13] MEDS: Pramipexole Di-HCl 0.5 MG Tablet PO (09:06)
[2018-10-13] MEDS: Sertraline 50 MG Tablet PO (09:08)
[2018-10-13] MEDS: Labetalol 200 MG Tablet 600 MG PO (09:08)
--- NOTE | 2018-10-13 10:24 | PCM.DC ---
You will use the following diet at home:: Calorie/Carbohydrate Controlled (specify 1200, 1400, etc) - 1800 calories/day Your food should be the consistency of: Regular Your liquids should be the consistency of: Regular/Thin Discharge Activity: Return to Normal Activity Call your doctor if you observe: Fever of 101 or Higher, - - recurrent cellulitis Allergies/Adverse Reactions: Allergies amlodipine [From Norvasc] Adverse Reaction (Severe, Verified 10/10/18 09:07) Hives ampicillin sodium [From Unasyn] Adverse Reaction (Severe, Verified 10/10/18 09:07) Hives buspirone HCl [From BuSpar] Adverse Reaction (Severe, Verified 10/10/18 09:07) Hives lisinopril Adverse Reaction (Severe, Verified 10/10/18 09:07) Swelling naproxen Adverse Reaction (Severe, Verified 10/10/18 09:07) Hives niacin [From Niaspan Extended-Release] Adverse Reaction (Severe, Verified 10/10/18 09:07) Hives omeprazole Adverse Reaction (Severe, Verified 10/10/18 09:07) Other stage 3 kidney failure UNABLE TO TAKE DUE TO TRANSPLALNT sulbactam sodium [From Unasyn] Adverse Reaction (Severe, Verified 10/10/18 09:07) Hives Sulfa (Sulfonamide Antibiotics) Adverse Reaction (Severe, Verified 10/10/18 09:07) Hives cephalexin [From Keflex] Adverse Reaction (Verified 10/10/18 09:07) Hives losartan Adverse Reaction (Verified 10/10/18 09:07) Swelling DURACEF Adverse Reaction (Severe, Uncoded 10/10/18 09:07) Hives Medications to take at Discharge Ascorbic Acid [Vitamin C] 1,000 mg PO DAILY 02/20/15 Cholecalciferol (VIT D3) [Vitamin D3] 1,000 unit PO DAILY 02/20/15 Ropinirole HCl [Requip] 1 mg PO BID 02/20/15 Tacrolimus Anhydrous [Prograf] 0.5 mg PO DAILY 03/18/16 Furosemide 60 mg PO BID 06/19/16 Levothyroxine [Synthroid] 25 mcg PO DAILY 06/19/16 Ferrous Sulfate [Iron] 325 mg PO DAILY 07/19/16 Sirolimus 1 mg PO DAILY 08/01/16 Labetalol [Trandate (Beta Dragan)] 600 mg PO BID 08/20/16 Atorvastatin Calcium [Lipitor] 10 mg PO QHS 10/19/16 Apremilast [Otezla] 30 mg PO BID 01/15/18 Cyanocobalamin (Vitamin B-12) [Vitamin B-12] 1,000 mcg PO DAILY 05/29/18 Insulin Aspart [Novolog Flexpen] 0 units SC TID 05/29/18 Insulin Aspart [Novolog Flexpen] 8 units SC BIDCM 05/29/18 Insulin Aspart [Novolog Flexpen] 14 units SC QHS 05/29/18 Insulin Glargine,Hum.rec.anlog [Lantus Solostar] 40 unit SQ BID 05/29/18 Desoximetasone [Topicort] 60 gm TP PRN PRN 07/04/18 Linezolid 600 mg PO BID #10 tab 10/13/18 Sertraline HCl [Zoloft] 50 mg PO DAILY #1 10/13/18 traZODone [Desyrel] 100 mg PO QHS tablet 10/13/18 The following prescriptions were given: Linezolid 600 mg PO BID #10 tab Transmission Status: Pending to [facility] Primary Care Physician: Velai Archuleta MD [Primary Care Provider] - Within 2 Weeks Test Results: Test results from this visit will be discussed in further detail at your follow-up appointment, if applicable. Please Follow Up With: dermatology When: 2-4 weeks. Proposed Discharge Date: 10/13/18
--- NOTE | 2018-10-13 10:26 | PCM.DC.SUM ---
Discharge Date and Diagnosis - Problem List Patient Problems: Active and Suspected Problems (Last Reviewed 09/13/18 @ 12:57 by Carlton Pollard DO) Cellulitis of right abdominal wall (Acute) Date of Admission: 10/10/18 Date of Discharge: 10/13/18 - Secondary Discharge Diagnosis Chronic Problems (Last Reviewed 09/13/18 @ 12:57 by Carlton Pollard DO) Obstructive sleep apnea syndrome (Chronic) Portal hypertension (Chronic) History of liver transplant (Chronic) Type 2 diabetes mellitus (Chronic) Immunosuppressed status (Chronic) Psoriasis (Chronic) 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) RLS (restless legs syndrome) (Chronic) Microcytic anemia (Chronic) Diabetes mellitus type 2 in obese (Chronic) S/P liver transplant (Chronic) uterine and cervical cancer (Chronic) Bilateral leg edema (Chronic) Immunocompromised patient (Chronic) Thrombocytopenia (Chronic) Anemia in chronic kidney disease (Chronic) 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 Operations: None Procedures: None Summary of Care Provided: The patient is a 63 year old F presents with recurrent cellulitis involving her flanks. This time involves mostly right side as well as her back. Did not involve the groin. Patient was started on vancomycin and her rash is improved. Patient was seen in consultation by Dr. Bahena who recommended the nasal lid if continued to improve which he is. He also recommend patient follow-up with dermatology as well to see if there is no other process that may be contributing to this being that this is her fifth bout within the past calendar year. Patient advised to return to the hospital if he does have recurrent episodes. Patient will be discharged with a low nasal lid for 5 more days. Patient instructed to hold off on her Zoloft and trazodone for risk of serotonin syndrome. [] Patient Problems: Active and Suspected Problems (Last Reviewed 09/13/18 @ 12:57 by Carlton Pollard DO) Cellulitis of right abdominal wall (Acute) - Physical Exam General: Alert, No apparent distress HEENT: Atraumatic, Normocephalic Oral: Moist Mucosa, No Gingival or Mucosal Lesions/ Ulcerations Neck: No Nodes, Thyroid Normal Size and Texture Lungs: Clear to auscultation, Normal air movement, No rhonchi, No wheeze Cardiovascular: Regular rate, Regular Rhythm, Normal S1, Normal S2, No murmurs Abdomen: Bowel Sounds Present, Soft, Non Tender, Non-Distended, No Hepato-splenomegaly, Obese Extremities: No edema, No Calf Tenderness Skin: - - Faint rash involving her right flank as well as her back. Areas of redness is withdrawn from the lines of demarcation. Vital Signs Temp Pulse Resp BP Pulse Ox 36.7 C 71 18 150/80 H 99 10/13/18 08:44 10/13/18 08:44 10/13/18 08:44 10/13/18 08:44 10/13/18 08:44 Oxygen Delivery Method Room Air Weight: 110.223 kg Body Mass Index (BMI) 40.4 Finger Stick Blood Glucose 427 Intake and Output for Last 24 Hours 10/11/18 10/12/18 10/13/18 23:59 23:59 23:59 Intake Total 2983 / 2983 2020 / 2520 800 / 800 Output Total 2150 / 2150 450 / 1100 1450 / 1450 Balance 833 / 833 1570 / 1420 -650 / -650 Microbiology Past 72 Hours 10/10/18 11:00 Blood Culture - Preliminary Blood Culture (Wb) - No Site/Description Given No growth in 48 hours. 10/10/18 09:43 Blood Culture - Preliminary Blood Culture (Wb) - Anticubital Left No growth in 48 hours. 10/12/18 05:33 Stool Occult Blood (TOMASZ) - Final Stool Occult Blood Positive Laboratory Tests Past 24 Hrs 10/12/18 10:24 Vancomycin Trough 16.9 H POC Glucose 10/13/18 10/12/18 10/12/18 06:33 21:41 16:05 POC Glucose 90 124 H 133 H 10/12/18 11:44 POC Glucose 121 H Discharge Diet: 1800 Calorie Control Diet Discharge Activity: Return to Normal Activity Call your doctor if you observe: Fever of 101 or Higher, - - recurrent cellulitis Home Medications: Medications to take at Discharge Ascorbic Acid [Vitamin C] 1,000 mg PO DAILY 02/20/15 Cholecalciferol (VIT D3) [Vitamin D3] 1,000 unit PO DAILY 02/20/15 Ropinirole HCl [Requip] 1 mg PO BID 02/20/15 Tacrolimus Anhydrous [Prograf] 0.5 mg PO DAILY 03/18/16 Furosemide 60 mg PO BID 06/19/16 Levothyroxine [Synthroid] 25 mcg PO DAILY 06/19/16 Ferrous Sulfate [Iron] 325 mg PO DAILY 07/19/16 Sirolimus 1 mg PO DAILY 08/01/16 Labetalol [Trandate (Beta Dragan)] 600 mg PO BID 08/20/16 Atorvastatin Calcium [Lipitor] 10 mg PO QHS 10/19/16 Apremilast [Otezla] 30 mg PO BID 01/15/18 Cyanocobalamin (Vitamin B-12) [Vitamin B-12] 1,000 mcg PO DAILY 05/29/18 Insulin Aspart [Novolog Flexpen] 0 units SC TID 05/29/18 Insulin Aspart [Novolog Flexpen] 8 units SC BIDCM 05/29/18 Insulin Aspart [Novolog Flexpen] 14 units SC QHS 05/29/18 Insulin Glargine,Hum.rec.anlog [Lantus Solostar] 40 unit SQ BID 05/29/18 Desoximetasone [Topicort] 60 gm TP PRN PRN 07/04/18 Linezolid 600 mg PO BID #10 tab 10/13/18 Sertraline HCl [Zoloft] 50 mg PO DAILY #1 10/13/18 traZODone [Desyrel] 100 mg PO QHS tablet 10/13/18 Following Prescrptions Were Given to Patient: Linezolid 600 mg PO BID #10 tab Transmission Status: Pending to [facility] Primary Care Physician: Velia Archuleta MD [Primary Care Provider] - Within 2 Weeks Please Follow Up With: dermatology When: 2-4 weeks. Disposition: Home Minutes spent on discharge:: 35 Patient Condition:: Good Medical Necessity - Tobacco Use Smoking Status: Never smoker Meaningful Use Info Meaningful Use Diagnoses (Choose all that apply): None applicable Code Visit Inpatient E&M: 78588 Disch Hosp
[2018-10-13] MEDS: SIROLIMUS 1 MG TABLET PO (12:00)
[2018-10-13 12:05] LABS: Bedside Glucose 162 mg/dL (70-110)
--- NOTE | 2018-10-13 12:32 | NURSING ---
LATE ENTRY - 1205 - PTS IV LEAKING. IV DC'D. AM DOSE OF VANCOMYCIN STILL INFUSING. I.D. NOTIFIED BECAUSE PT POSSIBLY FOR DC TODAY & WASN'T SURE IF NEEDED TO RESTART IV. SPOKE W/DR HENRY Key MD STATES NO NEED TO RESTART IV @ THIS TIME & HE WILL BE IN WITHIN THE HOUR TO SEE THE PT.
[2018-10-13] MEDS: Insulin Lispro 100 UNIT/ML INSULN.PEN SC (12:36)
--- NOTE | 2018-10-13 13:25 | PCM.PN.ID ---
Subjective: Patient alert and overall clinically stable no fevers. Feels better. Tolerating parenteral vancomycin well. Objective: Alert does not appear toxic right flank area improvement of the erythema. - Physical Exam Vital Signs Temp Pulse Resp BP Pulse Ox 98.1 F 71 18 150/80 H 99 10/13/18 08:44 10/13/18 08:44 10/13/18 08:44 10/13/18 08:44 10/13/18 08:44 Oxygen Delivery Method Room Air Weight: 110.223 kg Body Mass Index (BMI) 40.4 Finger Stick Blood Glucose 427 Intake and Output for Last 24 Hours 10/11/18 10/12/18 10/13/18 23:59 23:59 23:59 Intake Total 2983 / 2983 2020 / 2520 800 / 800 Output Total 2150 / 2150 450 / 1100 1450 / 1450 Balance 833 / 833 1570 / 1420 -650 / -650 Microbiology Past 72 Hours 10/10/18 11:00 Blood Culture - Preliminary Blood Culture (Wb) - No Site/Description Given No growth in 48 hours. 10/10/18 09:43 Blood Culture - Preliminary Blood Culture (Wb) - Anticubital Left No growth in 48 hours. 10/12/18 05:33 Stool Occult Blood (TOMASZ) - Final Stool Occult Blood Positive POC Glucose 10/13/18 10/13/18 10/12/18 11:53 06:33 21:41 POC Glucose 162 H 90 124 H 10/12/18 16:05 POC Glucose 133 H Medical Necessity - Tobacco Use Smoking Status: Never smoker Route of nutrition/ use of supplements: [] Nutritional Intake: [] IV Site: [] Paz Catheter: [] - Assessment/Plan Antibiotics: [] Assessment/Plan: [] Right flank cellulitis medically improved. Okay to go home on Zyvox 600 mg p.o. twice daily for 5 more days.
--- NOTE | 2018-10-13 14:09 | CASEMGMT ---
Social Work Note SW received referral from RN CM for prescription assistance resources. SW met with pt, introduced self and role at [facility]. Pt is alert and orientated. SW provided pt with RX assistance resources including Good RX, Prescription [facility], People [employer] People, RX assistance program and [employer]. Pt states that her main concerns is her hospital bill. Pt was provided PFS number and encouraged pt to call PFS in regards to hospital bill. Per RN ARIAS, pt reported that she and her make too much for medicaid. Christine Gonzalez EARLY YEARS TEACHER, SCIENCE FACULTY MEMBER
[2018-10-13 15:00] VITALS: BP 158/75; PULSE 68; RESP 18; TEMP 37.3; O2SAT 99
[2018-10-13 15:15] VITALS: BP 158/75; PULSE 68; RESP 18; TEMP 37.3; O2SAT 99
--- NOTE | 2018-10-14 12:11 | CASEMGMT ---
NIEVES BIANCHI DC PHONE CALL DC DATE: 10/13/18 DC Disposition: Home Diagnosis on Discharge: Cellulitis of R abdominal wall LACE/STRATA: 15/ Intro role of CM to patient via phone. Per pt she does not have questions re: instructions, prescriptions or follow up. Pt states she is seeing her deicer repairer today and will make f/u appt with PCP. No care improvement suggestions given. Keiko DOWNING RN ACM
== END 2018-10-13 15:12 | disposition home or self-care (01) | DRG 603 ==
LOC: ED 09:27 → MS3 10-13 07:08
PROVIDERS: Internal Medicine Infectious Disease; Admitting Provider Internal Medicine; Emergency Provider Emergency Medicine; Family Provider Internal Medicine; PCP Internal Medicine; Referring Provider Internal Medicine
DX: L03.311 Cellulitis of abdominal wall (principal); Z94.4 Liver transplant status; I50.32 Chronic diastolic (congestive) heart failure; N18.4 Chronic kidney disease, stage 4 (severe); K76.6 Portal hypertension; Z68.41 Body mass index [BMI] 40.0-44.9, adult; G47.33 Obstructive sleep apnea (adult) (pediatric); D50.9 Iron deficiency anemia, unspecified; E11.22 Type 2 diabetes mellitus with diabetic chronic kidney disease; G25.81 Restless legs syndrome; E66.01 Morbid (severe) obesity due to excess calories; Z79.4 Long term (current) use of insulin; Z79.899 Other long term (current) drug therapy
CPT/HCPCS: 36415; 80048; 80076; 80202; 82274; 82962; 83735; 85025; 85652; 87040; 99284; J7030; J7040; J7050; A4216; J2405

== ENCOUNTER 2018-10-29 07:40 | Emergency (ER) | payer MEDICARE, SELFPAY ==
[2018-10-10 12:18] VITALS: BMI 40.4
[2018-10-29 07:41] VITALS: BP 136/78; PULSE 78; RESP 16; TEMP 36.1; O2SAT 95; BMI 39.6
--- NOTE | 2018-10-29 08:03 | RAD_ITS ---
STUDY: X-RAY CHEST REASON FOR EXAM: Female, 63 years old. Several day history of shortness of breath and back pain. TECHNIQUE: PA and lateral views of the chest. COMPARISON: Comparison is made with prior study dated April 21, 2017. FINDINGS: There now is evidence of a small right pleural effusion with mild increased markings at the right lung base suggestive of atelectasis and/or early infiltrate. Follow-up is recommended. Scattered calcified granulomas. Normal size heart. Normal mediastinum and alvina. Normal visualized pulmonary arteries. Normal visualized aortic arch and descending thoracic aorta. There is a dextroscoliosis of the thoracic spine. Normal visualized ribs, clavicles, and shoulders. Sagittal clips are seen in the epigastric region. RAD/Chest PA and Lateral IMPRESSION: Small right pleural effusion with underlying atelectasis and/or infiltrate. Electronically Signed: Naren Boston, at 9:26 EDT , Service support ,
[2018-10-29 08:04] VITALS: BP 168/77; PULSE 79; RESP 16; O2SAT 97
--- NOTE | 2018-10-29 08:23 | ED.DCSUM_ITS ---
- ER Visit Summary Date of Service: 10/29/18 Chief Complaint: Left flank pain History of Present Illness: The patient is a 63 F who presents with left flank pain that has been getting worse over the past week. Patient states she was recently diagnosed with a urinary tract infection and is currently on anti biotics for that. Patient states she has 1 more dose of her antibiotic to take. Patient describes the pain as sharp. Patient states the pain is over the left flank area. Patient states the pain is worse with breathing and with laying on her back. Patient states nothing seems to help the pain. Patient also admits to some abdominal pain around her ventral hernia. Patient admits to nausea but denies any vomiting. Patient admits to subjective fevers. Physical Examination: Vital signs are stable. Patient is afebrile. Patient is in no acute distress. Oral mucosa is pink and moist. Neck is supple. Trachea is midline. There is no JVD noted. Heart was regular rate and rhythm. Lungs are clear and equal bilaterally. Abdomen is soft. Bowel sounds are normal. Th ere is some lower abdominal tenderness. There is no rebound or guarding noted. There is some left CVA tenderness. Cranial nerves II through XII are intact. There are no focal motor or sensory deficits noted. Skin is warm dry. There are no rashes noted. Test Results: CBC and comprehensive metabolic profile were essentially within normal limits. Hemoglobin was 9.4, BUN was 55, and creatinine was 2.17 these are consistent with prior results. Urinalysis does not show any evidence of urinary tract infection. PA and lateral chest x-ray was obtained. There is a small right-sided effusion with atelectasis versus infiltrate. Due to her persistent pain, CT scan of the abdomen pelvis was obtained. There is umbilical and spigelian hernias containing fat. There is no acute intra-abdominal process. Emergency Department Course and Treatment: Patient was given IV fluids, morphine, and Zofran here. Patient had some improvement with this. Patient was advised of her laboratory and imaging results. Patient states she has an appoint with her primary care physician in 2 days. Patient was instructed to keep this appointment. Patient was given a prescription for a short course of [place]. Patient was instructed to return if worse in any way. Patient understood and was agreeable with the plan. All questions were answered. Disposition: Discharge home Impression: Left flank pain This note was generated with Dragon dictation software. It may contain incorrect words, spelling, and punctuation that were not noted in review of the chart prior to signing ED Disposition - Plan for ED Patient: Disposition: Home or Assisted Living Diagnosis: Left flank pain Instructions: FLANK PAIN, Uncertain Cause Prescriptions: Hydrocodone Bitart/Apap 5-325 [[place] 5MG-325MG] 1 tab PO Q4H PRN PRN 2 Days #10 tab PRN Reason: Pain Prescription Printed Referrals: Velia Archuleta MD [Primary Care Provider] - Keep Patricia appointment
[2018-10-29] MEDS: Ondansetron 4 MG/2 ML Vial IV (08:47)
[2018-10-29] MEDS: Morphine 4 MG/ML Syringe IV ×2 (08:47→10:28)
[2018-10-29] MEDS: 0.9% Normal Saline 1,000 ML 1000 ML IV (08:48)
[2018-10-29 08:58] LABS: Mucous, Urine 0 SEEN /hpf (<or=2+)
[2018-10-29 09:04] LABS: Absolute Lymphocyte Count 0.38 X10^3/uL (0.83-4.51); Absolute Neutrophil Count 3.2 X10^3/uL (2.0-7.7); Eosinophils% 2.4 % (0-5); Hematocrit 31.9 % (37-47); Hemoglobin 9.4 g/dL (12.0-15.0); Lymphocyte # 0.38 X10^3/ul (4.0); Lymphocyte % 9.3 % (19-41); Mean Corp Hgb Conc 29.5 g/dL (32-36); Mean Corpuscular Hgb 22.7 pg (27.0-32.0); Mean Corpuscular Volume 76.9 fL (81-99); Mean Platelet Vol. 10.1 fl (6.2-12.0); Monocyte# 0.37 X10^3/uL; NRBC Flagged by Analyzer 0 % (0-5); Neutrophil # 3.21 X10^3/uL (2.7-7.7); Neutrophil % 78.6 % (47-70); POSITIVE DIFFERENTIAL YES; Platelet Count 159 K/mm3 (150-450); RBC Distribution Width CV 19.4 % (11.6-14.6); RBC Distribution Width SD 53.9 fl (35.1-43.9); Red Blood Count 4.15 M/mm3 (4.2-5.4); White Blood Count 4.1 K/mm3 (4.4-11.0)
[2018-10-29 09:07] LABS: Color, Urine Yellow (Yellow); Glucose, Dipstick Normal (Normal); Ketone-Dipstick Negative (Negative); Leukocyte Esterase-Dipstick 25 /ul (Negative); Nitrite-Dipstick Negative (Negative); Occult Blood-Urine 25 /ul (Negative); Protein-Dipstick 100 mg/dl (Negative); Urine Bilirubin Dipstick Negative (Negative); Urine Clarity Sl. Cloudy (Clear); Urine Urobilinogen Normal (Normal)
[2018-10-29 09:10] LABS: Differential Indicated SCAN CRITERIA MET
[2018-10-29 09:14] LABS: Bacteria 1+ /hpf (None Seen); Red Blood Cells-Urine 0-5 SEEN /hpf (0-5); Squamous Epithelial Cells - UA 5-10 SEEN /hpf (5-10); White Blood Cells 0-5 SEEN /hpf (0-5)
[2018-10-29 09:29] LABS: ALB/GLOB Ratio 0.6 RATIO (0.9-2.4); AST(SGOT) 23 U/L (15-37); Alanine Aminotransfer ALT/SGPT 25 U/L (13-56); Albumin, Serum 2.7 g/dL (3.2-5.0); Alkaline Phosphatase 81 U/L (45-117); Anion Gap 7 (5-15); BUN 55 mg/dL (7-18); BUN/Creat Ratio 25.3 RATIO (10-20); Calcium,Total 8.5 mg/dL (8.5-10.1); Chloride 110 mmol/L (98-107); Creatinine, Serum 2.17 mg/dL (0.55-1.02); EST Glomerular Filtration Rate 25 mL/min (>60); Est Glom Filt Rate - Afr Amer 30 mL/min (>60); Globulin 4.2 g/dL (2.2-4.2); Glucose 129 mg/dL (74-106); Lipase 122 U/L (73-393); Protein, Total 6.9 g/dL (6.4-8.2); Sodium Level 138 mmol/L (136-145)
--- NOTE | 2018-10-29 10:14 | CT_ITS ---
STUDY: CT ABDOMEN AND PELVIS WITHOUT CONTRAST REASON FOR EXAM: Female, 63 years old. Left flank pain. RADIATION DOSAGE (If Supplied By Facility): CTDIvol = ( 23.36 ) mGy, DLP = ( 1243.12 ) mGycm TECHNIQUE: Transaxial images were obtained from the dome of the diaphragm to the symphysis pubis without oral contrast, and without intravenous contrast. Sagittal and coronal images were reconstructed. Individualized dose optimization techniques were used for this CT. COMPARISON: Comparison is made with prior examination dated February 22, 2012. FINDINGS: Small bilateral pleural effusions right greater than left. Focal 4.2 cm x 3 cm density with air bronchograms in the posterior medial segment of the right lower lobe suggestive of either focal infiltration versus rounded atelectasis. Coronary artery calcification. Small pericardial effusion more prominent along the dependent posterior aspect. The patient has a history of liver transplantation. Minimal amount of free fluid along the lateral inferior aspect of the right lobe of the liver. There are surgical clips in the gallbladder fossa consistent with a prior cholecystectomy. Surgical clips are seen in the epigastric area. There is moderate splenomegaly. Normal pancreas. Normal bilateral adrenal glands. Normal right kidney. Normal left kidney. Normal visualized stomach. Normal small intestine. There are multiple colonic diverticula consistent with diverticulosis. There is non-visualization of the appendix. There is diffuse atherosclerotic calcification of the abdominal aorta and major visceral branches, without a demonstrated aneurysm. Normal inferior vena cava. Normal retroperitoneum. Normal urinary bladder. There is absence of the uterus consistent with a prior hysterectomy. Left-sided Spigalean hernia containing fat. The neck of the hernia measures 3.4 cm. Small umbilical hernia containing fat. There is evidence of a soft tissue densities in the lower anterior abdominal wall more prominent on the right side. Normal osseous structures. CT/Abdomen/Pelvis without Cont IMPRESSION: Right-sided pleural effusion with right basilar atelectasis/infiltrate versus round atelectasis. Moderate splenomegaly. Left-sided spigelian hernia. Electronically Signed: Naren Boston, at 11:23 EDT , Service support ,
[2018-10-29 11:35] VITALS: BP 142/69; PULSE 81; RESP 16; O2SAT 96
[2018-10-29 12:35] VITALS: BP 142/69; PULSE 76; RESP 16; O2SAT 96
[2018-10-30 13:45] LABS: Pathologist Review Reviewed
== END 2018-10-29 12:37 | disposition home or self-care (01) ==
PROVIDERS: Emergency Provider Emergency Medicine; Family Provider Internal Medicine; PCP Internal Medicine
DX: R10.9 Unspecified abdominal pain (principal); I13.0 Hypertensive heart and chronic kidney disease with heart failure and stage 1 through stage 4 chronic kidney disease, or unspecified chronic kidney disease; E11.22 Type 2 diabetes mellitus with diabetic chronic kidney disease; N18.9 Chronic kidney disease, unspecified; I50.9 Heart failure, unspecified; D64.9 Anemia, unspecified; R50.9 Fever, unspecified; K21.9 Gastro-esophageal reflux disease without esophagitis; E66.9 Obesity, unspecified; Z79.4 Long term (current) use of insulin; Z79.899 Other long term (current) drug therapy; Z94.4 Liver transplant status; Z85.41 Personal history of malignant neoplasm of cervix uteri
CPT/HCPCS: 71046; 74176; 80053; 81001; 83690; 85025; 96361; 96374; 96375; 96376; 99283; J7030; J2405

== ENCOUNTER 2018-11-14 08:55 | Outpatient (CLI) | payer MEDICARE, SELFPAY ==
[2018-11-14] VITALS (7 sets, daily range): BP systolic 151–164; BP diastolic 67–86; PULSE 66–90; RESP 16–18; TEMP 36.3–36.7; O2SAT 98–100; BMI 40.4
[2018-11-14] MEDS: Furosemide 20 MG/2 ML VIAL IV (11:48)
== END 2018-11-14 15:20 | disposition home or self-care (01) ==
LOC: MEDOUTP 08:56
PROVIDERS: Family Provider Internal Medicine; PCP Internal Medicine; Referring Provider Internal Medicine Hematology & Oncology; Visit Provider Internal Medicine Hematology & Oncology
DX: Z51.89 Encounter for other specified aftercare (principal); D64.9 Anemia, unspecified
CPT/HCPCS: 36430; 86850; 86900; 86901; 86920; 86922; J7040; P9016; A4216; J1940

== ENCOUNTER 2018-11-18 16:54 | Inpatient (IN) | payer MEDICARE, SELFPAY ==
[2018-11-14 09:14] VITALS: BMI 40.4
[2018-11-18] VITALS (7 sets, daily range): BP systolic 138–186; BP diastolic 67–87; PULSE 79–84; RESP 15–18; TEMP 36.8–37.4; O2SAT 94–100; BMI 40.4; BMI 39.2
--- NOTE | 2018-11-18 17:10 | ED.VIS.GEN ---
History of Present Illness Chief Complaint: Cellulitis Informant: Patient Onset: Hours - several Context: Sudden Onset - per pt, w/r/t pain Timing: Continuous Quality: sore/pain Location: right flank Current Severity: Severe Maximum Severity: Severe Worsened by: palpation of skin in affected area Relieved by: leaving alone Associated Symptoms: malaise Narrative: Patient has a history of Hoffman status post liver transplant and is on immunosuppressant therapy for that, states that several hours ago she has developed cellulitis on her right flank which is very similar to the onset of this same rash, symptoms, distribution 7 prior times, usually spontaneous and very quick in its onset and has responded to vancomycin in the past although she has never tested positive to MRSA that she knows of. She has never had an abscess in this area, never had a surgical scar involves. No obvious etiology for onset of this. She last saw the affected area of skin without erythema this morning, she presents around 5 PM. Prior similar symptoms: Yes Recent Illness/Hospitalization: Yes - outpt tx for gout in foot w/ prednisone -- last pill this AM. gout better. 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 (9) Obstructive sleep apnea syndrome Status: Chronic (10) Portal hypertension Status: Chronic (11) Psoriasis Status: Chronic (12) RLS (restless legs syndrome) Status: Chronic Past Medical History - Allergies and Home Meds Allergies/Adverse Reactions: Allergies amlodipine [From Norvasc] Adverse Reaction (Severe, Verified 11/14/18 09:17) Hives ampicillin sodium [From Unasyn] Adverse Reaction (Severe, Verified 11/14/18 09:17) Hives buspirone HCl [From BuSpar] Adverse Reaction (Severe, Verified 11/14/18 09:17) Hives lisinopril Adverse Reaction (Severe, Verified 11/14/18 09:17) Swelling naproxen Adverse Reaction (Severe, Verified 11/14/18 09:17) Hives niacin [From Niaspan Extended-Release] Adverse Reaction (Severe, Verified 09/13/19 09:17) Hives omeprazole Adverse Reaction (Severe, Verified 11/14/18 09:17) Other stage 3 kidney failure UNABLE TO TAKE DUE TO TRANSPLALNT sulbactam sodium [From Unasyn] Adverse Reaction (Severe, Verified 11/14/18 09:17) Hives Sulfa (Sulfonamide Antibiotics) Adverse Reaction (Severe, Verified 11/14/18 09:17) Hives cephalexin [From Keflex] Adverse Reaction (Verified 11/14/18 09:17) Hives losartan Adverse Reaction (Verified 11/14/18 09:17) Swelling DURACEF Adverse Reaction (Severe, Uncoded 11/14/18 09:17) Hives Surgical History: appendectomy, cholecystectomy, herniorrhaphy - Incisional hernia repair 2008, hysterectomy, - - Liver transplant, splenectomy, hysterectomy, left knee surgery, removal of left ovary, total mouth extraction Lives: Spouse/ Significant Other Smoking Status: Never smoker - Family History Maternal Family History: Family History (Last Reviewed 11/18/18 @ 20:36 by Dexter Garner MD) Mother Diabetes Anemia Father Hypertension LUNG/RESPIRATORY DISEASE Family History: Reports: Diabetes, Heart Disease Paternal Family History: Family History (Last Reviewed 11/18/18 @ 20:36 by Dexter Garner MD) Mother Diabetes Anemia Father Hypertension LUNG/RESPIRATORY DISEASE Family History: Reports: Cancer, Heart Disease Sibling Family History: Family History (Last Reviewed 11/18/18 @ 20:36 by Dexter Garner MD) Mother Diabetes Anemia Father Hypertension LUNG/RESPIRATORY DISEASE Family History: Reports: - - Cirrhosis Review of Systems General: Reports: Malaise. Denies: Chills, Fever, Sweats Eyes: Denies: Visual changes - bilaterally, Diplopia ENT: Denies: Rhinorrhea, Sore throat Cardiovascular: Denies: Chest pain, Palpitations Respiratory: Denies: Dyspnea, Cough, Dyspnea on exertion Gastrointestinal: Reports: Abdominal pain - Skin on right abdomen. Denies: Nausea, Vomiting, Diarrhea, Melena, Hematochezia Genitourinary: Denies: Dysuria, Hematuria, Frequency Musculoskeletal: Reports: Back pain - Skin. Denies: Extremity Pain Skin: Reports: Rash. Denies: Abscess, Wounds Neurological: Denies: Headache, Weakness, Numbness Physical Exam Vital Signs/Narrative: Vital Signs Temp Pulse Resp BP Pulse Ox 11/18/18 16:55 98.5 F 81 16 156/75 H 97 Inital Vital Signs reviewed: Yes General: Well nourished, Well developed, Obese, No Acute Distress Head: Normocephalic, Atraumatic Eyes: Perrl, EOMI ENT: Moist mucous membranes, No rhinorrhea Neck: Supple, Nontender Cardiovascular: Regular rate, Regular rhythm, No murmurs. Negative for: Tachycardia Respiratory: No distress, CTA bilaterally, Chest nontender Abdomen: Soft, Nontender, Nondistended, Normal bowel sounds Back: Nontender, Normal Inspection Extremities: Nontender, No edema Skin: Rash - Tender blanching erythema throughout right flank toward right buttock, but does not progress to the groin. There is a separate area of tender erythema in the right posterior proximal medial thigh into the inguinal area that is discontinuous from the rest of the tender erythema. No palpable abscess. No petechia or purpura or bullae. Neurological: Alert, Oriented x3, Cranial nerves II-XII grossly intact, Normal Strength, Normal Sensation Psychological: Normal affect, Normal Mood Diagnostic/Tx/Re-eval Laboratory Results 11/18/18 11/18/18 11/18/18 17:15 17:15 17:15 WBC 5.0 RBC 5.09 Hgb 12.0 Hct 40.4 MCV 79.4 L MCH 23.6 L MCHC 29.7 L RDW Std Deviation 55.5 H RDW Coeff of Tami 19.2 H Plt Count 111 L MPV 10.0 Immature Gran % (Auto) 0.600 Neut % (Auto) 88.2 H Lymph % (Auto) 5.6 L [place] % (Auto) 5.0 Eos % (Auto) 0.4 Baso % (Auto) 0.2 Absolute Neuts (auto) 4.5 Absolute Lymphs (auto) 0.28 L Nucleated RBC % 0 Differential Comment SCANNED PT 14.2 INR 1.1 APTT 27.8 Sodium 138 Potassium 4.0 Chloride 105 Carbon Dioxide 26.0 Anion Gap 7 BUN 54 H Creatinine 1.71 H Estim Creat Clear Calc 31.09 Est GFR (MDRD) Af Amer 39 L Est GFR (MDRD) Non-Af 32 L BUN/Creatinine Ratio 31.6 H Glucose 151 H Lactic Acid Calcium 8.7 Total Bilirubin 0.60 AST 11 L ALT 22 Alkaline Phosphatase 79 Total Protein 7.1 Albumin 3.2 Globulin 3.9 Albumin/Globulin Ratio 0.8 L Urine Color Urine Clarity Urine pH Ur Specific [place] Urine Protein Urine Glucose (UA) Urine Ketones Urine Occult Blood Urine Nitrite Urine Bilirubin Urine Urobilinogen Ur Leukocyte Esterase Urine RBC Urine WBC Ur Squamous Epith Cells Urine Bacteria Hyaline Casts Urine Mucus 11/18/18 11/18/18 17:15 18:25 WBC RBC Hgb Hct MCV MCH MCHC RDW Std Deviation RDW Coeff of Tami Plt Count MPV Immature Gran % (Auto) Neut % (Auto) Lymph % (Auto) [place] % (Auto) Eos % (Auto) Baso % (Auto) Absolute Neuts (auto) Absolute Lymphs (auto) Nucleated RBC % Differential Comment PT INR APTT Sodium Potassium Chloride Carbon Dioxide Anion Gap BUN Creatinine Estim Creat Clear Calc Est GFR (MDRD) Af Amer Est GFR (MDRD) Non-Af BUN/Creatinine Ratio Glucose Lactic Acid 1.4 Calcium Total Bilirubin AST ALT Alkaline Phosphatase Total Protein Albumin Globulin Albumin/Globulin Ratio Urine Color Straw Urine Clarity Clear Urine pH 6.0 Ur Specific [place] 1.010 Urine Protein 100 H Urine Glucose (UA) Normal Urine Ketones Negative Urine Occult Blood 25 H Urine Nitrite Negative Urine Bilirubin Negative Urine Urobilinogen Normal Ur Leukocyte Esterase Negative Urine RBC 0-5 SEEN Urine WBC 0-5 SEEN Ur Squamous Epith Cells 0-5 SEEN Urine Bacteria 0 SEEN Hyaline Casts 0-5 SEEN Urine Mucus 0 SEEN - Medical Decision Making Exam is consistent with cellulitis. There are no clinical findings suspicious of necrotizing fasciitis. Supporting this, I miriam a line early in the ER visit, around the erythematous area. On reevaluation, it has not changed significantly or extended beyond the line. There is no clinical suspicion of an abscess anywhere, everywhere she has erythema is equally tender. Her obesity certainly does limit this exam somewhat, but I do not think she needs advanced imaging at this time, especially given the history that this is occurred multiple times like this. Her labs are unremarkable, her lack of a leukocytosis may be explained by her immunosuppressive medications. She has been discharged on Zyvox in the past, however given the quickness that this large area of cellulitis appeared, will admit her on IV vancomycin, which was started in the ER, at this time. Discussed with hospitalist, she is stable and not septic with a normal blood pressure and lactate. Blood cultures were sent prior to giving antibiotics. ED Disposition - Plan for ED Patient: Disposition: Acute Care Hospital [facility] Diagnosis: Cellulitis of right abdominal wall, Immunosuppressed status
[2018-11-18] MEDS: Morphine 4 MG/ML Syringe IV (17:17)
[2018-11-18] MEDS: 0.9% Normal Saline 1,000 ML 150 ML IV (17:30)
[2018-11-18 17:39] LABS: Absolute Lymphocyte Count 0.28 X10^3/uL (0.83-4.51); Absolute Neutrophil Count 4.5 X10^3/uL (2.0-7.7); Basophil# 0.01 X10^3/uL; Basophil% 0.2 % (0-1); Eosinophil# 0.02 X10^3/uL; Eosinophils% 0.4 % (0-5); Hematocrit 40.4 % (37-47); Lymphocyte # 0.28 X10^3/ul (4.0); Lymphocyte % 5.6 % (19-41); Mean Corp Hgb Conc 29.7 g/dL (32-36); Mean Corpuscular Hgb 23.6 pg (27.0-32.0); Mean Corpuscular Volume 79.4 fL (81-99); Monocyte# 0.25 X10^3/uL; NRBC Flagged by Analyzer 0 % (0-5); Neutrophil # 4.45 X10^3/uL (2.7-7.7); Neutrophil % 88.2 % (47-70); POSITIVE DIFFERENTIAL YES; Platelet Count 111 K/mm3 (150-450); RBC Distribution Width CV 19.2 % (11.6-14.6); RBC Distribution Width SD 55.5 fl (35.1-43.9); Red Blood Count 5.09 M/mm3 (4.2-5.4)
[2018-11-18 17:42] LABS: Differential Indicated SCAN CRITERIA MET
[2018-11-18 17:52] LABS: ALB/GLOB Ratio 0.8 RATIO (0.9-2.4); AST(SGOT) 11 U/L (15-37); Alanine Aminotransfer ALT/SGPT 22 U/L (13-56); Albumin, Serum 3.2 g/dL (3.2-5.0); Alkaline Phosphatase 79 U/L (45-117); Anion Gap 7 (5-15); BUN 54 mg/dL (7-18); BUN/Creat Ratio 31.6 RATIO (10-20); Calcium,Total 8.7 mg/dL (8.5-10.1); Chloride 105 mmol/L (98-107); Creatinine, Serum 1.71 mg/dL (0.55-1.02); EST Glomerular Filtration Rate 32 mL/min (>60); Est Glom Filt Rate - Afr Amer 39 mL/min (>60); Estimated Creatinine Clearance 31.09 ml/min; Globulin 3.9 g/dL (2.2-4.2); Glucose 151 mg/dL (74-106); Protein, Total 7.1 g/dL (6.4-8.2); Sodium Level 138 mmol/L (136-145)
[2018-11-18 18:00] LABS: Lactic Acid 1.4 mmol/L (0.4-2.0)
[2018-11-18 18:30] LABS: Bacteria 0 SEEN /hpf (None Seen); Mucous, Urine 0 SEEN /hpf (<or=2+)
[2018-11-18 18:36] LABS: Color, Urine Straw (Yellow); Glucose, Dipstick Normal (Normal); Ketone-Dipstick Negative (Negative); Leukocyte Esterase-Dipstick Negative /ul (Negative); Nitrite-Dipstick Negative (Negative); Occult Blood-Urine 25 /ul (Negative); Protein-Dipstick 100 mg/dl (Negative); Urine Bilirubin Dipstick Negative (Negative); Urine Clarity Clear (Clear); Urine Urobilinogen Normal (Normal)
[2018-11-18 18:37] LABS: International Normalized Ratio 1.1; Partial Thromboplast Time 27.8 Seconds (24.1-36.2); Prothrombin Time (Protime)PT. 14.2 SECONDS (11.7-14.9)
[2018-11-18 18:38] LABS: Differential Comment SCANNED
[2018-11-18 18:59] LABS: Hyaline Cast 0-5 SEEN /lpf (0-5); Squamous Epithelial Cells - UA 0-5 SEEN /hpf (5-10)
[2018-11-18 19:00] LABS: Red Blood Cells-Urine 0-5 SEEN /hpf (0-5)
[2018-11-18 19:01] LABS: White Blood Cells 0-5 SEEN /hpf (0-5)
--- NOTE | 2018-11-18 19:27 | PCM.HP.STD ---
Problem List (1) Cellulitis Status: Acute History of Present Illness Date of Admission: 11/18/18 Chief Complaint: ERYTHEMA OF RIGHT FLANK The patient is a 63 year old F with a significant history of uterine and cervical cancer status post radical hysterectomy; rectal cancer x3 status post polypectomy; Hoffman cirrhosis status post liver transplantation in 2008 and on rejection medications; hypertension; diabetes and hypothyroidism who presented to the emergency department with redness of her right flank and right hip. Associated with her symptoms is increased warmth and burning to the site above. Patient was pretty sure that she has cellulitis since in the past she has had the same symptoms. She reported that this is her seventh time of having the same symptoms since May this year (2019). She reported that in the past she has responded to vancomycin. She reports that if she takes doxycycline her symptoms comes back right away. Also she is allergic to Keflex. Associated with her symptoms is chills; rigors and poor appetite. Of note patient completed prednisone therapy for gout on the same day of presentation; and on the same day that she noticed that the symptoms above. At the emergency department patient was given vancomycin. Of note patient was admitted on 10/10/2018 and discharged on 10/13/2018 for the same clinical picture. She received vancomycin inpatient and was discharged home on Zyvox. 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) RLS (restless legs syndrome) (Chronic) Microcytic anemia (Chronic) Diabetes mellitus type 2 in obese (Chronic) S/P liver transplant (Chronic) uterine and cervical cancer (Chronic) Bilateral leg edema (Chronic) Immunocompromised patient (Chronic) Thrombocytopenia (Chronic) Anemia in chronic kidney disease (Chronic) 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) Pancytopenia (Chronic) Neutropenia (Chronic) Iron deficiency anemia (Chronic) CKD (chronic kidney disease), stage III (Chronic) Medical History: Medical History (Last Reviewed 11/18/18 @ 20:36 by Dexter Garner MD) Chronic kidney disease, stage 3 N18.3 Diabetes E11.9 GERD (gastroesophageal reflux disease) K21.9 History of uterine cancer Z85.42 LIVER TRANSPLANT 2008 [facility] Sleep apnea G47.30 Hypertension I10 Allergies amlodipine [From Norvasc] Adverse Reaction (Severe, Verified 11/14/18 09:17) Hives ampicillin sodium [From Unasyn] Adverse Reaction (Severe, Verified 11/14/18 09:17) Hives buspirone HCl [From BuSpar] Adverse Reaction (Severe, Verified 11/14/18 09:17) Hives lisinopril Adverse Reaction (Severe, Verified 11/14/18 09:17) Swelling naproxen Adverse Reaction (Severe, Verified 11/14/18 09:17) Hives niacin [From Niaspan Extended-Release] Adverse Reaction (Severe, Verified 11/14/18 09:17) Hives omeprazole Adverse Reaction (Severe, Verified 11/14/18 09:17) Other stage 3 kidney failure UNABLE TO TAKE DUE TO TRANSPLALNT sulbactam sodium [From Unasyn] Adverse Reaction (Severe, Verified 11/14/18 09:17) Hives Sulfa (Sulfonamide Antibiotics) Adverse Reaction (Severe, Verified 11/14/18 09:17) Hives cephalexin [From Keflex] Adverse Reaction (Verified 11/14/18 09:17) Hives losartan Adverse Reaction (Verified 11/14/18 09:17) Swelling DURACEF Adverse Reaction (Severe, Uncoded 11/14/18 09:17) Hives Home Medications: Ambulatory Orders Medication Instructions Recorded Ascorbic Acid [Vitamin C] 1,000 mg PO DAILY 02/20/15 Cholecalciferol (VIT D3) [Vitamin 1,000 unit PO DAILY 02/20/15 D3] Furosemide 60 mg PO BID 06/19/16 Levothyroxine [Synthroid] 25 mcg PO DAILY 06/19/16 Sirolimus 1 mg PO DAILY PRN PRN 08/01/16 Atorvastatin Calcium [Lipitor] 10 mg PO QHS 10/19/16 Apremilast [Otezla] 30 mg PO BID 01/15/18 Cyanocobalamin (Vitamin B-12) 1,000 mcg PO DAILY 05/29/18 [Vitamin B-12] Insulin Aspart [Novolog Flexpen] 0 units SC TID 05/29/18 Insulin Aspart [Novolog Flexpen] 8 units SC BIDCM 05/29/18 Insulin Aspart [Novolog Flexpen] 14 units SC DINNER 05/29/18 Insulin Glargine,Hum.rec.anlog 40 unit SQ BID 05/29/18 [Lantus Solostar] Desoximetasone [Topicort] 60 gm TP DAILY PRN PRN 07/04/18 Sertraline HCl [Zoloft] 50 mg PO DAILY #1 10/13/18 traZODone [Desyrel] 100 mg PO QHS tab 10/13/18 Ferrous Sulfate 325 mg PO DAILY 11/18/18 Labetalol HCl 600 mg PO BID 11/18/18 Ropinirole HCl [Requip] 1 mg PO BID 11/18/18 Tacrolimus 0.5 mg PO DAILY 11/18/18 Surgical History: Surgical History (Last Reviewed 11/18/18 @ 20:36 by Dexter Garner MD) History of cholecystectomy Z90.49 2009 History of left knee surgery Z98.890 History of left salpingo-oophorectomy Z90.79, Z90.721 1989 BENIGN TUMOR History of radical hysterectomy Z90.710 History of splenectomy Z90.81 2009 History of ventral hernia repair Z98.890, Z87.19 Surgical History: appendectomy, cholecystectomy, herniorrhaphy - Incisional hernia repair 2008, hysterectomy, - - Liver transplant, splenectomy, hysterectomy, left knee surgery, removal of left ovary, total mouth extraction Psychiatric History: No pertinent psych hx 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: No pertinent BUSINESS ETHICS PROFESSOR history Lives: Spouse/ Significant Other Smoking Status: Never smoker - *Family History Maternal Family History: Family History (Last Reviewed 11/18/18 @ 20:36 by Dexter Garner MD) Mother Diabetes Anemia Father Hypertension LUNG/RESPIRATORY DISEASE History Items: Diabetes, Heart Disease Paternal Family History: Family History (Last Reviewed 11/18/18 @ 20:36 by Dexter Garner MD) Mother Diabetes Anemia Father Hypertension LUNG/RESPIRATORY DISEASE History Items: Cancer, Heart Disease Sibling Family History: Family History (Last Reviewed 11/18/18 @ 20:36 by Dexter Garner MD) Mother Diabetes Anemia Father Hypertension LUNG/RESPIRATORY DISEASE History Items: - - Cirrhosis Review of Systems Constitutional: Reports: Anorexia, Chills. Denies: Fever, Weight Change HEENT: Denies: Head Aches, Sinus Congestion, Sinus Drainage Cardiovascular: Denies: Chest Pain, Palpitations Respiratory: Denies: Cough, Shortness of breath at rest, Sputum production Gastrointestinal: Denies: Abdominal Pain, Nausea, Vomiting Genitourinary: Denies: Dysuria Musculoskeletal: Denies: Joint Pain, Joint Tenderness Skin: Reports: Skin Changes - Erythema; pain and burning at right flank area and right hip. Denies: Rash, Wounds Neurological: Denies: Numbness, Tingling, Focal weakness Psychiatric: Denies: Anxiety, Depression, Homicidal Ideations, Suicidal Ideations Hematologic/ Lymphatic: Denies: Easy Bruising, Easy Bleeding VTE Information - Inpt Only VTE Present on Admission: No VTE Mechan Device Prophylaxis: None VTE Pharm Prophylaxis ordered?: Yes - Physical Exam General: Alert, Oriented x3, Cooperative HEENT: Atraumatic, PERRLA, EOMI, Normocephalic Neck: Supple, No JVD, Negative Carotid Bruits Lungs: Clear to auscultation, Normal air movement Cardiovascular: Regular rate, No murmurs Abdomen: Bowel Sounds Present, Soft, Non Tender Extremities: No edema, Capillary Refill Less than 3 Seconds Skin: - - Erythema; tenderness; and increased warmth of right flank area; and right hip. Musculoskeletal: No Tenderness to Palpation of Joints or Extremities Neurological: Cranial nerves II-XII grossly intact Psych/Mental Status: Normal Affect, Appropriate Vital Signs Temp Pulse Resp BP Pulse Ox 98.4 F 82 16 176/85 H 98 11/18/18 18:31 11/18/18 19:02 11/18/18 19:02 11/18/18 19:02 11/18/18 19:02 Oxygen Delivery Method Room Air Weight: 110.223 kg Body Mass Index (BMI) 40.4 Finger Stick Blood Glucose 427 Intake and Output for Last 24 Hours 11/16/18 11/17/18 11/18/18 23:59 23:59 23:59 Intake Total 112.5 / 112.5 Balance 112.5 / 112.5 Laboratory Tests Past 24 Hrs 11/18/18 11/18/18 11/18/18 17:15 17:15 17:15 WBC 5.0 RBC 5.09 Hgb 12.0 Hct 40.4 MCV 79.4 L MCH 23.6 L MCHC 29.7 L RDW Std Deviation 55.5 H RDW Coeff of Tami 19.2 H Plt Count 111 L MPV 10.0 Immature Gran % (Auto) 0.600 Neut % (Auto) 88.2 H Lymph % (Auto) 5.6 L [place] % (Auto) 5.0 Eos % (Auto) 0.4 Baso % (Auto) 0.2 Absolute Neuts (auto) 4.5 Absolute Lymphs (auto) 0.28 L Nucleated RBC % 0 Differential Comment SCANNED PT 14.2 INR 1.1 APTT 27.8 Sodium 138 Potassium 4.0 Chloride 105 Carbon Dioxide 26.0 Anion Gap 7 BUN 54 H Creatinine 1.71 H Estim Creat Clear Calc 31.09 Est GFR (MDRD) Af Amer 39 L Est GFR (MDRD) Non-Af 32 L BUN/Creatinine Ratio 31.6 H Glucose 151 H Lactic Acid Calcium 8.7 Total Bilirubin 0.60 AST 11 L ALT 22 Alkaline Phosphatase 79 Total Protein 7.1 Albumin 3.2 Globulin 3.9 Albumin/Globulin Ratio 0.8 L Urine Color Urine Clarity Urine pH Ur Specific [place] Urine Protein Urine Glucose (UA) Urine Ketones Urine Occult Blood Urine Nitrite Urine Bilirubin Urine Urobilinogen Ur Leukocyte Esterase Urine RBC Urine WBC Ur Squamous Epith Cells Urine Bacteria Hyaline Casts Urine Mucus 11/18/18 11/18/18 17:15 18:25 WBC RBC Hgb Hct MCV MCH MCHC RDW Std Deviation RDW Coeff of Tami Plt Count MPV Immature Gran % (Auto) Neut % (Auto) Lymph % (Auto) [place] % (Auto) Eos % (Auto) Baso % (Auto) Absolute Neuts (auto) Absolute Lymphs (auto) Nucleated RBC % Differential Comment PT INR APTT Sodium Potassium Chloride Carbon Dioxide Anion Gap BUN Creatinine Estim Creat Clear Calc Est GFR (MDRD) Af Amer Est GFR (MDRD) Non-Af BUN/Creatinine Ratio Glucose Lactic Acid 1.4 Calcium Total Bilirubin AST ALT Alkaline Phosphatase Total Protein Albumin Globulin Albumin/Globulin Ratio Urine Color Straw Urine Clarity Clear Urine pH 6.0 Ur Specific [place] 1.010 Urine Protein 100 H Urine Glucose (UA) Normal Urine Ketones Negative Urine Occult Blood 25 H Urine Nitrite Negative Urine Bilirubin Negative Urine Urobilinogen Normal Ur Leukocyte Esterase Negative Urine RBC 0-5 SEEN Urine WBC 0-5 SEEN Ur Squamous Epith Cells 0-5 SEEN Urine Bacteria 0 SEEN Hyaline Casts 0-5 SEEN Urine Mucus 0 SEEN Assessment/Plan All Active Problems (Last Reviewed 11/18/18 @ 20:36 by Dexter Garner MD) Severe sepsis (Resolved) Dehydration (Resolved) Acute kidney injury superimposed on chronic kidney disease (Resolved) Diastolic CHF, acute (Resolved) Hypomagnesemia (Resolved) Acute respiratory failure with hypoxia (Resolved) Pleural effusion (Resolved) Cellulitis (Acute) Diabetic foot ulcer (Resolved) Foreign body in right foot with infection (Resolved) Right foot pain (Resolved) Cellulitis of right abdominal wall (Acute) HOFFMAN (nonalcoholic steatohepatitis) (Resolved) The patient is a 63 year old F with a significant history of uterine and cervical cancer status post radical hysterectomy; rectal cancer x3 status post polypectomy; Hoffman cirrhosis status post liver transplantation in 2008 and on rejection medications; hypertension; diabetes and hypothyroidism who presented to the emergency department with recurrence redness of her right flank and right hip; with associated increased warmth and burning to the site above; chills; rigors and anorexia consistent with acute recurrent cellulitis of right flank and right hip. Acute recurrent cellulitis of right flank and right hip. Patient received vancomycin at the emergency department. We will continue vancomycin given history of cellulitis responding to vancomycin. As stated above on previous admission patient was discharged home on Zyvox. Of note patient was seen by infectious disease specialist on previous admission. Trend CBC and BMP. Blood cultures are pending; follow PRN IV morphine for severe pain; PRN oxycodone p.o. for moderate pain. Antiemetics ordered. PRN bowel regimen. Diabetes mellitus On presentation, her blood glucose was within hospital goal. Will de-escalate home prandial insulin; correction scale insulin added. Will de-escalate home basal insulin. Accu-Chek qachs. Adjust hypoglycemic medication as necessary Hoffman cirrhosis status post liver transplantation Continue tacrolimus and Sirolimus CKD stage III Stable Depression Zoloft and trazodone continued Hypertension On presentation her blood pressure was not within goal Labetalol continued PRN hydralazine ordered. Trend blood pressure and adjust blood pressure medication Psoriasis On home Apremilast; continued PRN Desoximetasone held since there are no active lesions. Hypothyroidism Synthroid continued Restless leg syndrome Requip continued Venostasis Lasix continued Hyperlipidemia Lipitor continued DVT prophylaxis Subcutaneous Lovenox Code Visit Inpatient E&M: 90876 Init Hosp L3
--- NOTE | 2018-11-18 21:23 | PCM.RX.CS ---
Consult Pharmacy has been consulted to manage selected antiobiotic: Vancomycin Type of Consult: New start Suspected Infection: Skin/Soft tissue Labs: Sodium 138 mmol/L (136-145) 11/18/18 17:15 Potassium 4.0 mmol/L (3.5-5.1) 11/18/18 17:15 Chloride 105 mmol/L (98-107) 11/18/18 17:15 Carbon Dioxide 26.0 mmol/L (21.0-32.0) 11/18/18 17:15 Anion Gap 7 (5-15) 11/18/18 17:15 BUN 54 mg/dL (7-18) H 11/18/18 17:15 Creatinine 1.71 mg/dL (0.55-1.02) H 11/18/18 17:15 Est GFR (MDRD) Af Amer 39 mL/min (>60) L 11/18/18 17:15 Est GFR (MDRD) Non-Af 32 mL/min (>60) L 11/18/18 17:15 BUN/Creatinine Ratio 31.6 RATIO (10-20) H 11/18/18 17:15 Glucose 151 mg/dL (74-106) H 11/18/18 17:15 Weight used for dosin.7 kg Estimated Creatinine Clearance: 42.74 Goal Trough: 15-20 mcg/mL Pharmacy Plan for Drug Dosing: Pharmacy Service will continue to monitor and adjust dosing as required. Medications Vancomycin HCl (Vancomycin) 1,000 mg in 200 mls @ 200 mls/hr IV Q12H JERSON Discontinued Medications Vancomycin HCl 1,750 mg/ (Sodium Chloride) 535 mls @ 250 mls/hr IV X1 ONE Stop: 11/18/18 20:08 Last Admin: 11/18/18 20:24 Dose: Infused Documented by: Follow-Up Labs: Trough Vancomycin Labs to be done on [date and time ordered]: 11/20 @ 5521
[2018-11-18 21:31] LABS: Bedside Glucose 112 mg/dL (70-110)
[2018-11-18] MEDS: Labetalol 200 MG Tablet 600 MG PO (21:35)
[2018-11-18] MEDS: Pramipexole Di-HCl 0.5 MG Tablet PO (21:35)
[2018-11-18] MEDS: traZODone 100 MG Tablet PO (21:36)
[2018-11-18] MEDS: Atorvastatin Calcium 10 MG Tablet PO (21:36)
[2018-11-19 05:00] VITALS: BP 148/68; PULSE 71; RESP 16; TEMP 36.9; O2SAT 97
[2018-11-19] MEDS: Levothyroxine 25 MCG TABLET PO (05:35)
[2018-11-19] MEDS: Vancomycin IV 1,000 MG/200 ML BAG 200 MG IV ×2 (05:35→16:56)
[2018-11-19] MEDS: 0.9% NaCl Peripheral Flush Adult/Peds IV (05:35)
[2018-11-19 06:17] LABS: Absolute Lymphocyte Count 0.39 X10^3/uL (0.83-4.51); Absolute Neutrophil Count 5.7 X10^3/uL (2.0-7.7); Eosinophil# 0.03 X10^3/uL; Eosinophils% 0.5 % (0-5); Hematocrit 35.1 % (37-47); Hemoglobin 10.5 g/dL (12.0-15.0); Lymphocyte # 0.39 X10^3/ul (4.0); Mean Corp Hgb Conc 29.9 g/dL (32-36); Mean Corpuscular Hgb 23.7 pg (27.0-32.0); Mean Corpuscular Volume 79.2 fL (81-99); Mean Platelet Vol. 10.2 fl (6.2-12.0); Monocyte# 0.35 X10^3/uL; Monocyte% 5.4 % (0-10); NRBC Flagged by Analyzer 0 % (0-5); Neutrophil # 5.69 X10^3/uL (2.7-7.7); Neutrophil % 87.6 % (47-70); POSITIVE DIFFERENTIAL YES; Platelet Count 90 K/mm3 (150-450); RBC Distribution Width CV 19.4 % (11.6-14.6); RBC Distribution Width SD 55.8 fl (35.1-43.9); Red Blood Count 4.43 M/mm3 (4.2-5.4); White Blood Count 6.5 K/mm3 (4.4-11.0)
[2018-11-19 06:36] LABS: Anion Gap 9 (5-15); BUN 55 mg/dL (7-18); BUN/Creat Ratio 32.9 RATIO (10-20); Calcium,Total 8.2 mg/dL (8.5-10.1); Chloride 105 mmol/L (98-107); Creatinine, Serum 1.67 mg/dL (0.55-1.02); EST Glomerular Filtration Rate 33 mL/min (>60); Est Glom Filt Rate - Afr Amer 40 mL/min (>60); Estimated Creatinine Clearance 31.83 ml/min; Glucose 161 mg/dL (74-106); Potassium 3.9 mmol/L (3.5-5.1); Sodium Level 137 mmol/L (136-145)
[2018-11-19 06:49] LABS: Differential Indicated SCAN CRITERIA MET
[2018-11-19] MEDS: Insulin Lispro 100 UNIT/ML INSULN.PEN SC ×4 (06:49→12:53)
[2018-11-19 06:54] LABS: Differential Comment SCANNED; Microcytosis 2+
[2018-11-19 07:11] LABS: Bedside Glucose 178 mg/dL (70-110)
[2018-11-19 08:05] VITALS: BP 155/76; PULSE 66; RESP 18; TEMP 37.1; O2SAT 100
[2018-11-19] MEDS: Cyanocobalamin 500 MCG Tablet 1000 MCG PO (08:16)
[2018-11-19] MEDS: Ascorbic Acid 500 MG Tablet 1000 MG PO (08:16)
[2018-11-19] MEDS: Ferrous Sulfate 325 MG Tablet PO (08:16)
[2018-11-19] MEDS: Furosemide 20 MG Tablet 60 MG PO ×2 (08:17→16:55)
[2018-11-19] MEDS: Pramipexole Di-HCl 0.5 MG Tablet PO ×2 (08:20→21:41)
[2018-11-19] MEDS: Labetalol 200 MG Tablet 600 MG PO ×2 (08:24→21:42)
[2018-11-19] MEDS: Sertraline 50 MG Tablet PO (08:24)
[2018-11-19 08:31] LABS: Bedside Glucose 134 mg/dL (70-110)
[2018-11-19] MEDS: Enoxaparin 40 MG/0.4 ML Syringe SC (09:33)
--- NOTE | 2018-11-19 09:53 | CASEMGMT ---
LW/POA forms scanned into summary tab of [employer] Carlos Guerrier is listed as POA. DEBBY Parish
--- NOTE | 2018-11-19 10:19 | PN_ITS ---
Patient Problems: Active and Suspected Problems (Last Reviewed 11/18/18 @ 20:36 by Dexter Garner MD) Cellulitis of right abdominal wall (Acute) Subjective: Recurrent cellulitis involving right flank and back. Notes improvement with antibiotics, and shortly after completing abx, the cellulitis recurs. Saw dermatology as outpt, but had not redness at that time, and the family services assistant could not provide any input at that time. Vitals/I&O's: Vital Signs Temp Pulse Resp BP Pulse Ox 37.1 C 66 18 155/76 H 100 11/19/18 08:05 11/19/18 08:05 11/19/18 08:05 11/19/18 08:05 11/19/18 08:05 Oxygen Delivery Method Room Air Weight: 108.664 kg Body Mass Index (BMI) 39.2 Finger Stick Blood Glucose 427 Intake and Output for Last 24 Hours 11/17/18 11/18/18 11/19/18 23:59 23:59 23:59 Intake Total 647.5 / 647.5 550 / 550 Output Total 400 / 400 Balance 647.5 / 647.5 150 / 150 General: Alert, No apparent distress HEENT: Atraumatic, Normocephalic Oral: Moist Mucosa, No Gingival or Mucosal Lesions/ Ulcerations Neck: No Nodes, Thyroid Normal Size and Texture Lungs: Clear to auscultation, Normal air movement, No rhonchi, No wheeze, No rales Cardiovascular: Regular rate, Regular Rhythm, Normal S1, Normal S2 Abdomen: Bowel Sounds Present, Soft, Non Tender, Non-Distended, No Hepato- splenomegaly Extremities: No Calf Tenderness, Edema Skin: - - Macular rash involving her right flank, extending into her back and right side of her abdomen. Fluctuance appreciated, no purulent lesions appreciated. Psych/Mental Status: Normal Affect, Appropriate Laboratory Results 11/18/18 17:15: WBC 5.0, RBC 5.09, Hgb 12.0, Hct 40.4, MCV 79.4 L, MCH 23.6 L, MCHC 29.7 L, RDW Std Deviation 55.5 H, RDW Coeff of Tami 19.2 H, Plt Count 111 L, MPV 10.0, Immature Gran % (Auto) 0.600, Neut % (Auto) 88.2 H, Lymph % (Auto) 5.6 L, [place] % (Auto) 5.0, Eos % (Auto) 0.4, Baso % (Auto) 0.2, Absolute Neuts (auto) 4.5, Absolute Lymphs (auto) 0.28 L, Nucleated RBC % 0, Differential Comment SCANNED 11/18/18 17:15: PT 14.2, INR 1.1, APTT 27.8 11/18/18 17:15: Sodium 138, Potassium 4.0, Chloride 105, Carbon Dioxide 26.0, Anion Gap 7, BUN 54 H, Creatinine 1.71 H, Estim Creat Clear Calc 31.09, Est GFR (MDRD) Af Amer 39 L, Est GFR (MDRD) Non-Af 32 L, BUN/Creatinine Ratio 31.6 H, Glucose 151 H, Calcium 8.7, Total Bilirubin 0.60, AST 11 L, ALT 22, Alkaline P hosphatase 79, Total Protein 7.1, Albumin 3.2, Globulin 3.9, Albumin/Globulin Ratio 0.8 L 11/18/18 17:15: Lactic Acid 1.4 11/18/18 18:25: Urine Color Straw, Urine Clarity Clear, Urine pH 6.0, Ur Specific [place] 1.010, Urine Protein 100 H, Urine Glucose (UA) Normal, Urine Ketones Negative, Urine Occult Blood 25 H, Urine Nitrite Negative, Urine Bilirubin Negative, Urine Urobilinogen Normal, Ur Leukocyte Esterase Negative, Urine RBC 0-5 SEEN, Urine WBC 0-5 SEEN, Ur Squamous Epith Cells 0-5 SEEN, Urine Bacteria 0 SEEN, Hyaline Casts 0-5 SEEN, Urine Mucus 0 SEEN 11/18/18 21:01: POC Glucose 112 H 11/19/18 05:40: WBC 6.5, RBC 4.43, Hgb 10.5 L, Hct 35.1 L, MCV 79.2 L, MCH 23.7 L, MCHC 29.9 L, RDW Std Deviation 55.8 H, RDW Coeff of Tami 19.4 H, Plt Count 90 L, MPV 10.2, Immature Gran % (Auto) 0.500, Neut % (Auto) 87.6 H, Lymph % (Auto) 6.0 L, [place] % (Auto) 5.4, Eos % (Auto) 0.5, Baso % (Auto) 0.0, Absolute Neuts (auto) 5.7, Absolute Lymphs (auto) 0.39 L, Nucleated RBC % 0, Differential Comment SCANNED, Microcytosis 2+ 11/19/18 05:40: Sodium 137, Potassium 3.9, Chloride 105, Carbon Dioxide 23.0, Anion Gap 9, BUN 55 H, Creatinine 1.67 H, Estim Creat Clear Calc 31.83, Est GFR (MDRD) Af Amer 40 L, Est GFR (MDRD) Non-Af 33 L, BUN/Creatinine Ratio 32.9 H, Glucose 161 H, Calcium 8.2 L 11/19/18 06:44: POC Glucose 178 H 11/19/18 08:15: POC Glucose 134 H Current [facility] Admin: 11/19/18 08:16 Dose: 1,000 mg Documented by: Atorvastatin Calcium (Lipitor) 10 mg PO QHS [facility] Last Admin: 11/18/18 21:36 Dose: 10 mg Documented by: Calamine/Phenol (Calmoseptine Ointment) 1 applic TOPICAL BID [facility]; Protocol Cholecalciferol (Vitamin D) [facility] Last Admin: 11/19/18 08:17 Dose: 1,000 unit Documented by: Cyanocobalamin (Vitamin B12) [facility] Last Admin: 11/19/18 08:16 Dose: 1,000 mcg Documented by: Dextrose (D50w Syringe) 0 gm IV X1 PRN; Protocol PRN Reason: Hypoglycemia Enoxaparin Sodium (Lovenox) 40 mg SC DAILY@1000 [facility] Last Admin: 11/19/18 09:33 Dose: 40 mg Documented by: Ferrous Sulfate (Ferrous Sulfate) [facility] Last Admin: 11/19/18 08:16 Dose: 325 mg Documented by: Furosemide (Lasix) 60 mg PO BIDLX [facility] Last Admin: 11/19/18 08:17 Dose: 60 mg Documented by: Glucagon () 1 mg IM .X1 PRN PRN Reason: Hypoglycemia Hydralazine HCl (Apresoline Iv) 5 mg IV Q4H PRN PRN PRN Reason: SBP > 160 Vancomycin IV Pharmacy to Dose (1,250 ea/ Sodium Chloride) 500 mls @ 250 mls/hr IV Q24 PRN; Protocol Vancomycin HCl (Vancomycin) 1,000 mg in 200 mls @ 200 mls/hr IV Q12H [facility] Last Infusion: 11/19/18 06:35 Dose: Infused Documented by: Insulin Glargine (Lantus ([facility])) 30 units SC BID [facility] Last Admin: 11/19/18 08:20 Dose: Not Given Documented by: Insulin Human Lispro (Humalog Kwikpen ([facility])) 4 unit SC 0800,1200 [facility] Last Admin: 11/19/18 08:19 Dose: 4 units Documented by: Insulin Human Lispro (Humalog Kwikpen ([facility])) 6 unit SC DINNER [facility] Insulin Human Lispro (Humalog Kwikpen ([facility])) 0 unit SC ACHS [facility]; Protocol Last Admin: 11/19/18 06:49 Dose: 1 u Documented by: Labetalol HCl (Trandate) 600 mg PO BID [facility] Last Admin: 11/19/18 08:24 Dose: 600 mg Documented by: Levothyroxine Sodium (Synthroid) 25 mcg PO DAILY@0600 [facility] Last Admin: 11/19/18 05:35 Dose: 25 mcg Documented by: Morphine Sulfate () 2 mg IV Q3H PRN PRN PRN Reason: Severe pain (7-10/10) Nutritional Formula (Lactose Free) (Glucerna Shake) 120 ml PO TIDCM [facility] Nystatin (Mycostatin Powder) 1 applic TOPICAL BID [facility]; Protocol Ondansetron HCl (Zofran) 4 mg IV Q8H PRN PRN PRN Reason: NAUSEA/VOMITING Oxycodone HCl (Oxyir) 5 mg PO Q4H PRN PRN PRN Reason: MODERATE PAIN (4-5/10) Pramipexole Dihydrochloride (Mirapex) 0.5 mg PO BID [facility] Last Admin: 11/19/18 08:20 Dose: 0.5 mg Documented by: Senna/Docusate Sodium (Senokot-S, Elizabeth-Colace) 2 tablet PO BID PRN PRN PRN Reason: Constipation Sertraline HCl (Zoloft) 50 mg PO DAILY [facility] Last Admin: 11/19/18 08:24 Dose: 50 mg Documented by: Sirolimus (Rapamune) 1 mg PO DAILY [facility] Sodium Chloride () 10 - 40 ml IV UD PRN PRN Reason: SALINE FLUSH Last Admin: 11/19/18 05:35 Dose: 10 ml Documented by: Tacrolimus (Prograf) 0.5 mg PO DAILY [facility] Last Admin: 11/19/18 08:23 Dose: 0.5 mg Documented by: Trazodone HCl (Desyrel) 100 mg PO QHS [facility] Last Admin: 11/18/18 21:36 Dose: 100 mg Documented by: Medical Necessity - Tobacco Use Smoking Status: Never smoker Tobacco Use: Non-smoker Assessment/Plan All Active Problems (Last Reviewed 11/18/18 @ 20:36 by Dexter Garner MD) Severe sepsis (Resolved) Dehydration (Resolved) Acute kidney injury superimposed on chronic kidney disease (Resolved) Diastolic CHF, acute (Resolved) Hypomagnesemia (Resolved) Acute respiratory failure with hypoxia (Resolved) Pleural effusion (Resolved) Cellulitis (Acute) Diabetic foot ulcer (Resolved) Foreign body in right foot with infection (Resolved) Right foot pain (Resolved) Cellulitis of right abdominal wall (Acute) HOFFMAN (nonalcoholic steatohepatitis) (Resolved) 1. Recurrent right flank cellulitis * Had a very lengthy conversation with the patient and her about the cellulitis and plan to continue with antibiotics, reconsult infectious disease . Also stated that patient still should be referred to family services assistant. There expressed frustration that dermatology did not come to the hospital and that nothing was being done in regards to looking into recurrent nature of this cellulitis. Explained to the that part of that work-up in regards to looking into it is seeing a family services assistant to see if they have any recommendations or guidance in regards to what this could be. I explained to the patient and her at great length that though that this is most likely cellulitis it certainly behoove the care providers to not rule out other processes in case something is being missed. Part of my concern is to see if patient would require longer term antibiotics as may just not be fully eradicated when she does complete her antibiotics. I explained to them that I would defer that decision making to infectious disease. I did inform them that dermatology does not come to this hospital. Also told him that that is common issue in regards to other institutions or dermatology is not available on the inpatient side of care. * Will continue with vancomycin for now 2. Status post a liver transplant * Continue with transplant medications: Tacrolimus, sirolimus * Certainly being immunosuppressed makes patient more susceptible to infections 3. Diabetes mellitus type 2 * Continue with nasal and prandial insulin 4. VTE prophylaxis: Moderate risk. Enoxaparin. Greater than 40 minutes of which greater than 50% of the time was discussing cellulitis, work-up and also discussing broadening the scope went standard treatments do not work, particular for this case, dermatology evaluation. Code Visit Inpatient E&M: 69267 [facility] L3
[2018-11-19] MEDS: Nystatin Powder 15gm Bottle 1 APPLIC TOPICAL ×2 (10:28→21:41)
[2018-11-19] MEDS: Menthol/Lanolin/Calamine/Znox 113 GM Tube 1 APPLIC TOPICAL ×2 (10:28→21:37)
--- NOTE | 2018-11-19 10:30 | CASEMGMT ---
NIEVES BIANCHI Face to Face with patient for initial transition planning/care coordination assessment. RN CM introduced self and role at [facility]. Patient lying in bed, alert and oriented, at bedside. Patient willing to participate in assessment and is able to answer all questions appropriately. Care providers, pharmacy, and demographics verified. Patient wishes to discharge home, denies need for home health at this time. Patient states she has no further needs or concerns at this time. CM to follow for discharge planning needs that may arise. PCP: Geremias Specialists: Em, postal clerk; Kathy, hernia; Denita, oncologist Preferred Pharmacy: [facility] Prescription Benefit: yes Living Will/HPOA: yes, Don Chey LNOK: Living Arrangements: patient lives with in an apartment with 13 steps to enter the home. Patient is independent at home. Transportation: self/ DME/HHC: Patient has shower chair, rollator, medical alert, cpap, and nebulizer. Patient has had HHC in the past with [facility]. Disposition Plan: Patient to discharge home with family support and follow-up plans in place. Christine DOWNING, RN, CM
[2018-11-19 11:41] LABS: Bedside Glucose 182 mg/dL (70-110)
[2018-11-19] MEDS: SIROLIMUS 1 MG TABLET PO (12:55)
[2018-11-19 14:30] VITALS: BP 163/82; PULSE 68; RESP 18; TEMP 36.5; O2SAT 100
--- NOTE | 2018-11-19 15:41 | CHAPLAIN ---
Type of Pastoral Visit _x__ Initial Visit ___ Follow-up Visit ___ On-call Visit ___ General Patient Visit ___ Spiritual Assessment ___ Family Conference ___ Bereavement ___ Rapid Response ___ Code Blue ___ Other (describe below) Pastoral Care Referral From _x__ Patient ___ Family ___ Nurse ___ Physician ___ Portfolio Analyst ___ Chief Transfer And Pumphouse Operator ___ Other (describe below) Sacrament/Intervention _x__ Active listening ___ Anointing ___ Oriental Orthodox ___ Bereavement ___ Communion ___ Deonna exploration ___ _x__ Life review _x__ Prayer ___ Reconciliation ___ Sacrament of Sick _x__ Supportive presence ___ Wedding ___ Other (describe below) Pastoral Comments patient and spouse express emotions about multiple hospital admissions and ongoing health needs
--- NOTE | 2018-11-19 16:11 | CON.PCM_ITS ---
Problem List (1) Cellulitis of right abdominal wall Status: Acute Reason for Consult: cellulitis Consulted by: Dr. Pollard History of Present Illness: The patient is a 63 year old F with h/o liver transplant, now several admissions for recurrent R flank cellulitis. About a month between episodes, no clear inciting event, no trauma. Typically resolves after a few days with abx. No drainage. Sx started yesterday at 4pm, had significant burning/stabbing/itching and redness over R flank. Some chills. Came to ED, admitted on vanc. Feeling slightly better. Full ROS performed and neg except as noted above. 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) RLS (restless legs syndrome) (Chronic) Microcytic anemia (Chronic) Diabetes mellitus type 2 in obese (Chronic) S/P liver transplant (Chronic) uterine and cervical cancer (Chronic) Bilateral leg edema (Chronic) Immunocompromised patient (Chronic) Thrombocytopenia (Chronic) Anemia in chronic kidney disease (Chronic) 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) Pancytopenia (Chronic) Neutropenia (Chronic) Iron deficiency anemia (Chronic) CKD (chronic kidney disease), stage III (Chronic) Allergies/Adverse Reactions: Allergies amlodipine [From Norvasc] Adverse Reaction (Severe, Verified 11/14/18 09:17) Hives ampicillin sodium [From Unasyn] Adverse Reaction (Severe, Verified 11/14/18 09:17) Hives buspirone HCl [From BuSpar] Adverse Reaction (Severe, Verified 11/14/18 09:17) Hives lisinopril Adverse Reaction (Severe, Verified 11/14/18 09:17) Swelling naproxen Adverse Reaction (Severe, Verified 11/14/18 09:17) Hives niacin [From Niaspan Extended-Release] Adverse Reaction (Severe, Verified 11/14/18 09:17) Hives omeprazole Adverse Reaction (Severe, Verified 11/14/18 09:17) Other stage 3 kidney failure UNABLE TO TAKE DUE TO TRANSPLALNT sulbactam sodium [From Unasyn] Adverse Reaction (Severe, Verified 11/14/18 09:17) Hives Sulfa (Sulfonamide Antibiotics) Adverse Reaction (Severe, Verified 11/14/18 09:17) Hives cephalexin [From Keflex] Adverse Reaction (Verified 11/14/18 09:17) Hives losartan Adverse Reaction (Verified 11/14/18 09:17) Swelling DURACEF Adverse Reaction (Severe, Uncoded 11/14/18 09:17) Hives Home Medications: Ambulatory Orders Medication Instructions Recorded Ascorbic Acid [Vitamin C] 1,000 mg PO DAILY 02/20/15 Cholecalciferol (VIT D3) [Vitamin 1,000 unit PO DAILY 02/20/15 D3] Furosemide 60 mg PO BID 06/19/16 Levothyroxine [Synthroid] 25 mcg PO DAILY 06/19/16 Sirolimus 1 mg PO DAILY PRN PRN 08/01/16 Atorvastatin Calcium [Lipitor] 10 mg PO QHS 10/19/16 Apremilast [Otezla] 30 mg PO BID 01/15/18 Cyanocobalamin (Vitamin B-12) 1,000 mcg PO DAILY 05/29/18 [Vitamin B-12] Insulin Aspart [Novolog Flexpen] 0 units SC TID 05/29/18 Insulin Aspart [Novolog Flexpen] 8 units SC BIDCM 05/29/18 Insulin Aspart [Novolog Flexpen] 14 units SC DINNER 05/29/18 Insulin Glargine,Hum.rec.anlog 40 unit SQ BID 05/29/18 [Lantus Solostar] Desoximetasone [Topicort] 60 gm TP DAILY PRN PRN 07/04/18 Sertraline HCl [Zoloft] 50 mg PO DAILY #1 10/13/18 traZODone [Desyrel] 100 mg PO QHS tab 10/13/18 Ferrous Sulfate 325 mg PO DAILY 11/18/18 Labetalol HCl 600 mg PO BID 11/18/18 Ropinirole HCl [Requip] 1 mg PO BID 11/18/18 Tacrolimus 0.5 mg PO DAILY 11/18/18 - Social History SMOKING STATUS:: Never smoker Vital Signs Temp Pulse Resp BP Pulse Ox 98.8 F 66 18 155/76 H 100 11/19/18 08:05 11/19/18 08:05 09/18/19 08:05 11/19/18 08:05 11/19/18 08:05 Oxygen Delivery Method Room Air Weight: 108.664 kg Body Mass Index (BMI) 39.2 Finger Stick Blood Glucose 427 Laboratory Tests Past 24 Hrs 11/18/18 11/18/18 11/18/18 17:15 17:15 17:15 WBC 5.0 RBC 5.09 Hgb 12.0 Hct 40.4 MCV 79.4 L MCH 23.6 L MCHC 29.7 L RDW Std Deviation 55.5 H RDW Coeff of Tami 19.2 H Plt Count 111 L MPV 10.0 Immature Gran % (Auto) 0.600 Neut % (Auto) 88.2 H Lymph % (Auto) 5.6 L [place] % (Auto) 5.0 Eos % (Auto) 0.4 Baso % (Auto) 0.2 Absolute Neuts (auto) 4.5 Absolute Lymphs (auto) 0.28 L Nucleated RBC % 0 Differential Comment SCANNED Microcytosis PT 14.2 INR 1.1 APTT 27.8 Sodium 138 Potassium 4.0 Chloride 105 Carbon Dioxide 26.0 Anion Gap 7 BUN 54 H Creatinine 1.71 H Estim Creat Clear Calc 31.09 Est GFR (MDRD) Af Amer 39 L Est GFR (MDRD) Non-Af 32 L BUN/Creatinine Ratio 31.6 H Glucose 151 H Lactic Acid Calcium 8.7 Total Bilirubin 0.60 AST 11 L ALT 22 Alkaline Phosphatase 79 Total Protein 7.1 Albumin 3.2 Globulin 3.9 Albumin/Globulin Ratio 0.8 L Urine Color Urine Clarity Urine pH Ur Specific [place] Urine Protein Urine Glucose (UA) Urine Ketones Urine Occult Blood Urine Nitrite Urine Bilirubin Urine Urobilinogen Ur Leukocyte Esterase Urine RBC Urine WBC Ur Squamous Epith Cells Urine Bacteria Hyaline Casts Urine Mucus 11/18/18 11/18/18 11/19/18 17:15 18:25 05:40 WBC 6.5 RBC 4.43 Hgb 10.5 L Hct 35.1 L MCV 79.2 L MCH 23.7 L MCHC 29.9 L RDW Std Deviation 55.8 H RDW Coeff of Tami 19.4 H Plt Count 90 L MPV 10.2 Immature Gran % (Auto) 0.500 Neut % (Auto) 87.6 H Lymph % (Auto) 6.0 L [place] % (Auto) 5.4 Eos % (Auto) 0.5 Baso % (Auto) 0.0 Absolute Neuts (auto) 5.7 Absolute Lymphs (auto) 0.39 L Nucleated RBC % 0 Differential Comment SCANNED Microcytosis 2+ PT INR APTT Sodium Potassium Chloride Carbon Dioxide Anion Gap BUN Creatinine Estim Creat Clear Calc Est GFR (MDRD) Af Amer Est GFR (MDRD) Non-Af BUN/Creatinine Ratio Glucose Lactic Acid 1.4 Calcium Total Bilirubin AST ALT Alkaline Phosphatase Total Protein Albumin Globulin Albumin/Globulin Ratio Urine Color Straw Urine Clarity Clear Urine pH 6.0 Ur Specific [place] 1.010 Urine Protein 100 H Urine Glucose (UA) Normal Urine Ketones Negative Urine Occult Blood 25 H Urine Nitrite Negative Urine Bilirubin Negative Urine Urobilinogen Normal Ur Leukocyte Esterase Negative Urine RBC 0-5 SEEN Urine WBC 0-5 SEEN Ur Squamous Epith Cells 0-5 SEEN Urine Bacteria 0 SEEN Hyaline Casts 0-5 SEEN Urine Mucus 0 SEEN 11/19/18 05:40 WBC RBC Hgb Hct MCV MCH MCHC RDW Std Deviation RDW Coeff of Tami Plt Count MPV Immature Gran % (Auto) Neut % (Auto) Lymph % (Auto) [place] % (Auto) Eos % (Auto) Baso % (Auto) Absolute Neuts (auto) Absolute Lymphs (auto) Nucleated RBC % Differential Comment Microcytosis PT INR APTT Sodium 137 Potassium 3.9 Chloride 105 Carbon Dioxide 23.0 Anion Gap 9 BUN 55 H Creatinine 1.67 H Estim Creat Clear Calc 31.83 Est GFR (MDRD) Af Amer 40 L Est GFR (MDRD) Non-Af 33 L BUN/Creatinine Ratio 32.9 H Glucose 161 H Lactic Acid Calcium 8.2 L Total Bilirubin AST ALT Alkaline Phosphatase Total Protein Albumin Globulin Albumin/Globulin Ratio Urine Color Urine Clarity Urine pH Ur Specific [place] Urine Protein Urine Glucose (UA) Urine Ketones Urine Occult Blood Urine Nitrite Urine Bilirubin Urine Urobilinogen Ur Leukocyte Esterase Urine RBC Urine WBC Ur Squamous Epith Cells Urine Bacteria Hyaline Casts Urine Mucus - Other Studies Radiology: [] Other Studies: [] Route of nutrition/ use of supplements: [] Nutritional Intake: [] IV Site: [] Paz Catheter: [] - Physical Exam General: Alert, Oriented x3, Cooperative, No apparent distress HEENT: Atraumatic, PERRLA, EOMI Neck: Supple, No Nodes Lungs: Clear to auscultation, Normal air movement Cardiovascular: Regular rate, Regular Rhythm Abdomen: Soft, Non Tender, Non-Distended Extremities: No edema Skin: Rash Present - Large area of R flank with redness, no induration, mild tenderness IV Site: Peripheral, without redness Musculoskeletal: No Tenderness to Palpation of Joints or Extremities Neurological: Cranial nerves II-XII grossly intact - Assessment/Plan Antibiotics: [] Assessment/Plan: [] Active and Suspected Problems (Last Reviewed 11/18/18 @ 20:36 by Dexter Garner MD) Cellulitis of right abdominal wall (Acute) Recurrent cellulitis, unclear source. Cont iv vanc. If she can get in to see derm tomorrow, would recommend d/c home in AM on linezolid 600mg bid for 10 day course. She is calling Dr. Marsh's office now. Will follow, thank you.
[2018-11-19 16:30] LABS: Bedside Glucose 125 mg/dL (70-110)
[2018-11-19 21:20] VITALS: BP 155/63; PULSE 69; RESP 18; TEMP 36.8; O2SAT 98
[2018-11-19] MEDS: Glucerna Shake 120 ML LIQUID PO (21:38)
[2018-11-19] MEDS: traZODone 100 MG Tablet PO (21:38)
[2018-11-19] MEDS: Atorvastatin Calcium 10 MG Tablet PO (21:41)
[2018-11-19 23:11] LABS: Bedside Glucose 149 mg/dL (70-110)
[2018-11-20 04:00] VITALS: BP 148/63; PULSE 61; RESP 18; TEMP 36.8; O2SAT 98
[2018-11-20] MEDS: Levothyroxine 25 MCG TABLET PO (06:04)
[2018-11-20] MEDS: 0.9% NaCl Peripheral Flush Adult/Peds IV (06:05)
[2018-11-20 06:07] LABS: Anion Gap 9 (5-15); BUN 60 mg/dL (7-18); BUN/Creat Ratio 35.3 RATIO (10-20); Chloride 106 mmol/L (98-107); EST Glomerular Filtration Rate 32 mL/min (>60); Est Glom Filt Rate - Afr Amer 39 mL/min (>60); Estimated Creatinine Clearance 31.27 ml/min; Glucose 107 mg/dL (74-106); Potassium 3.6 mmol/L (3.5-5.1); Sodium Level 139 mmol/L (136-145)
[2018-11-20 06:18] LABS: Absolute Neutrophil Count 3.1 X10^3/uL (2.0-7.7); Basophil# 0.01 X10^3/uL; Basophil% 0.2 % (0-1); Eosinophil# 0.16 X10^3/uL; Eosinophils% 3.9 % (0-5); Hemoglobin 10.3 g/dL (12.0-15.0); Lymphocyte % 12.2 % (19-41); Mean Corp Hgb Conc 29.4 g/dL (32-36); Mean Corpuscular Hgb 23.4 pg (27.0-32.0); Mean Corpuscular Volume 79.4 fL (81-99); Mean Platelet Vol. 10.9 fl (6.2-12.0); Monocyte# 0.34 X10^3/uL; Monocyte% 8.3 % (0-10); NRBC Flagged by Analyzer 0 % (0-5); Neutrophil # 3.05 X10^3/uL (2.7-7.7); Neutrophil % 74.4 % (47-70); POSITIVE DIFFERENTIAL YES; Platelet Count 93 K/mm3 (150-450); RBC Distribution Width CV 19.2 % (11.6-14.6); RBC Distribution Width SD 55.4 fl (35.1-43.9); Red Blood Count 4.41 M/mm3 (4.2-5.4); White Blood Count 4.1 K/mm3 (4.4-11.0)
--- NOTE | 2018-11-20 06:20 | PCM.RX.CS ---
Consult Pharmacy has been consulted to manage selected antiobiotic: Vancomycin Type of Consult: Follow-up Suspected Infection: Skin/Soft tissue Prior Doses of Antibiotics Received/Current Regimen: Medications Discontinued Medications Vancomycin HCl (Vancomycin) 1,000 mg in 200 mls @ 200 mls/hr IV Q12H JERSON Last Admin: 11/20/18 06:13 Dose: Not Given Documented by: Labs: Sodium 139 mmol/L (136-145) 11/20/18 05:24 Potassium 3.6 mmol/L (3.5-5.1) 11/20/18 05:24 Chloride 106 mmol/L (98-107) 11/20/18 05:24 Carbon Dioxide 24.0 mmol/L (21.0-32.0) 11/20/18 05:24 Anion Gap 9 (5-15) 11/20/18 05:24 BUN 60 mg/dL (7-18) H 11/20/18 05:24 Creatinine 1.70 mg/dL (0.55-1.02) H 11/20/18 05:24 Est GFR (MDRD) Af Amer 39 mL/min (>60) L 11/20/18 05:24 Est GFR (MDRD) Non-Af 32 mL/min (>60) L 11/20/18 05:24 BUN/Creatinine Ratio 35.3 RATIO (10-20) H 11/20/18 05:24 Glucose 107 mg/dL (74-106) H 11/20/18 05:24 Vancomycin Trough 28.0 ug/mL (5.0-15.0) H 11/20/18 05:24 Weight used for dosin.7 kg Estimated Creatinine Clearance: 31 Goal Trough: 15-20 mcg/mL Pharmacy Plan for Drug Dosing: High trough level of 28 so 11/20/18 0600 dose was held. Will redraw random vancomycin level at 1800 and re-calculate continuing dose from those results. Pharmacy Service will continue to monitor and adjust dosing as required. Follow-Up Labs: Trough Vancomycin - random Labs to be done on [date and time ordered]: 11/20/18 @1800
[2018-11-20 06:43] LABS: Differential Indicated SCAN CRITERIA MET
[2018-11-20 07:04] LABS: Differential Comment SCANNED; Platelet Estimate ADEQUATE (ADEQ)
[2018-11-20 08:15] VITALS: BP 156/62; PULSE 61; RESP 16; TEMP 36.5; O2SAT 99
[2018-11-20] MEDS: Furosemide 20 MG Tablet 60 MG PO (08:17)
[2018-11-20] MEDS: Cyanocobalamin 500 MCG Tablet 1000 MCG PO (08:17)
[2018-11-20] MEDS: Ascorbic Acid 500 MG Tablet 1000 MG PO (08:19)
[2018-11-20] MEDS: Ferrous Sulfate 325 MG Tablet PO (08:19)
[2018-11-20] MEDS: Pramipexole Di-HCl 0.5 MG Tablet PO (08:20)
[2018-11-20] MEDS: Labetalol 200 MG Tablet 600 MG PO (08:20)
[2018-11-20] MEDS: Sertraline 50 MG Tablet PO (08:20)
[2018-11-20] MEDS: Nystatin Powder 15gm Bottle 1 APPLIC TOPICAL (08:23)
[2018-11-20] MEDS: Enoxaparin 40 MG/0.4 ML Syringe SC (08:24)
[2018-11-20] MEDS: Menthol/Lanolin/Calamine/Znox 113 GM Tube 1 APPLIC TOPICAL (08:24)
--- NOTE | 2018-11-20 08:24 | PCM.DC ---
- Discharge Diagnoses Current Active Problems: Current Active and Chronic Problems (Last Reviewed 11/18/18 @ 20:36 by Dexter Garner MD) Immunosuppressed status (Chronic) Cellulitis of right abdominal wall (Acute) You will use the following diet at home:: Calorie/Carbohydrate Controlled (specify 1200, 1400, etc) - 1800 Your food should be the consistency of: Regular Your liquids should be the consistency of: Regular/Thin Discharge Activity: Return to Normal Activity Call your doctor if you observe: Fever of 101 or Higher, - - recurrent flank rash/cellulitis Allergies/Adverse Reactions: Allergies amlodipine [From Norvasc] Adverse Reaction (Severe, Verified 11/14/18 09:17) Hives ampicillin sodium [From Unasyn] Adverse Reaction (Severe, Verified 11/14/18 09:17) Hives buspirone HCl [From BuSpar] Adverse Reaction (Severe, Verified 11/14/18 09:17) Hives lisinopril Adverse Reaction (Severe, Verified 11/14/18 09:17) Swelling naproxen Adverse Reaction (Severe, Verified 11/14/18 09:17) Hives niacin [From Niaspan Extended-Release] Adverse Reaction (Severe, Verified 11/14/18 09:17) Hives omeprazole Adverse Reaction (Severe, Verified 11/14/18 09:17) Other stage 3 kidney failure UNABLE TO TAKE DUE TO TRANSPLALNT sulbactam sodium [From Unasyn] Adverse Reaction (Severe, Verified 11/14/18 09:17) Hives Sulfa (Sulfonamide Antibiotics) Adverse Reaction (Severe, Verified 11/14/18 09:17) Hives cephalexin [From Keflex] Adverse Reaction (Verified 11/14/18 09:17) Hives losartan Adverse Reaction (Verified 11/14/18 09:17) Swelling DURACEF Adverse Reaction (Severe, Uncoded 11/14/18 09:17) Hives Medications to take at Discharge Ascorbic Acid [Vitamin C] 1,000 mg PO DAILY 02/20/15 Cholecalciferol (VIT D3) [Vitamin D3] 1,000 unit PO DAILY 02/20/15 Furosemide 60 mg PO BID 06/19/16 Levothyroxine [Synthroid] 25 mcg PO DAILY 06/19/16 Sirolimus 1 mg PO DAILY PRN PRN 08/01/16 Atorvastatin Calcium [Lipitor] 10 mg PO QHS 10/19/16 Apremilast [Otezla] 30 mg PO BID 01/15/18 Cyanocobalamin (Vitamin B-12) [Vitamin B-12] 1,000 mcg PO DAILY 05/29/18 Insulin Aspart [Novolog Flexpen] 0 units SC TID 05/29/18 Insulin Aspart [Novolog Flexpen] 8 units SC BIDCM 05/29/18 Insulin Aspart [Novolog Flexpen] 14 units SC DINNER 05/29/18 Insulin Glargine,Hum.rec.anlog [Lantus Solostar] 40 unit SQ BID 05/29/18 Sertraline HCl [Zoloft] 50 mg PO DAILY #1 10/13/18 traZODone [Desyrel] 100 mg PO QHS tab 10/13/18 Ferrous Sulfate 325 mg PO DAILY 11/18/18 Labetalol HCl 600 mg PO BID 11/18/18 Ropinirole HCl [Requip] 1 mg PO BID 11/18/18 Tacrolimus 0.5 mg PO DAILY 11/18/18 Linezolid [Zyvox] 600 mg PO Q12H #20 tab 11/20/18 The following prescriptions were given: Linezolid [Zyvox] 600 mg PO Q12H #20 tab Transmission Status: Pending to [facility] Primary Care Physician: Velia Archuleta MD [Primary Care Provider] - Within 1 Week Test Results: Test results from this visit will be discussed in further detail at your follow-up appointment, if applicable. Please Follow Up With: Adolph Marsh MD When: Today at 1400 Please Follow Up With: Rosalio Jordan MD When: 2-3 weeks. Call office for appointment. Proposed Discharge Date: 11/20/18
[2018-11-20] MEDS: Glucerna Shake 120 ML LIQUID PO (08:25)
--- NOTE | 2018-11-20 08:26 | DS.PCM_ITS ---
Discharge Date and Diagnosis - Problem List Patient Problems: Active and Suspected Problems (Last Reviewed 11/18/18 @ 20:36 by Dexter Garner MD) Cellulitis of right abdominal wall (Acute) Date of Admission: 11/18/18 Date of Discharge: 11/20/18 - Primary Discharge Diagnosis Active and Suspected Problems (Last Reviewed 11/18/18 @ 20:36 by Dexter Garner MD) Cellulitis of right abdominal wall (Acute) - Secondary Discharge Diagnosis Chronic Problems (Last Reviewed 11/18/18 @ 20:36 by Dexter Garner MD) Obstructive sleep apnea syndrome (Chronic) Portal hypertension (Chronic) History of liver transplant (Chronic) Type 2 diabetes mellitus (Chronic) Immunosuppressed status (Chronic) Psoriasis (Chronic) 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) RLS (restless legs syndrome) (Chronic) Microcytic anemia (Chronic) Diabetes mellitus type 2 in obese (Chronic) S/P liver transplant (Chronic) uterine and cervical cancer (Chronic) Bilateral leg edema (Chronic) Immunocompromised patient (Chronic) Thrombocytopenia (Chronic) Anemia in chronic kidney disease (Chronic) 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 1. Recurrent right flank cellulitis * Improved * On 11/19: Had a very lengthy conversation with the patient and her about the cellulitis and plan to continue with antibiotics, reconsult infectious disease. Also stated that patient still should be referred to bilingual nanny. There expressed frustration that dermatology did not come to the hospital and that nothing was being done in regards to looking into recurrent nature of this cellulitis. Explained to the that part of that work- up in regards to looking into it is seeing a bilingual nanny to see if they have any recommendations or guidance in regards to what this could be. I explained to the patient and her at great length that though that this is most likely cellulitis it certainly behoove the care providers to not rule out other processes in case something is being missed. Part of my concern is to see if patient would require longer term antibiotics as may just not be fully eradicated when she does complete her antibiotics. I explained to them that I would defer that decision making to infectious disease. I did inform them that dermatology does not come to this hospital. Also told him that that is common issue in regards to other institutions or dermatology is not available on the inpatient side of care. * Seen by infectious disease and recommend patient be discharged with low nasal lid for 10 days again. * Patient has an appointment with the bilingual nanny Adolph Marsh today at 1400 * Discussed with Dr. Jordan, and patient to contact his office to follow-up with him and to see if antibiotics would potentially need to be extended beyond the standard length. 2. Status post a liver transplant * Continue with transplant medications: Tacrolimus, sirolimus * Certainly being immunosuppressed makes patient more susceptible to infections 3. Diabetes mellitus type 2 * Continue with nasal and prandial insulin [] Patient Problems: Active and Suspected Problems (Last Reviewed 11/18/18 @ 20:36 by Dexter Garner MD) Cellulitis of right abdominal wall (Acute) - Physical Exam General: Alert, No apparent distress HEENT: Atraumatic, Normocephalic Skin: - - Improving erythema over the right flank and back. No purulent lesions appreciated. No induration. Vital Signs Temp Pulse Resp BP Pulse Ox 36.8 C 61 18 148/63 H 98 11/20/18 04:00 11/20/18 04:00 11/20/18 04:00 11/20/18 04:00 11/20/18 04:00 Oxygen Flow Rate (L/min) 98 Oxygen Delivery Method Room Air Weight: 108.664 kg Body Mass Index (BMI) 39.2 Finger Stick Blood Glucose 427 Intake and Output for Last 24 Hours 11/18/18 11/19/18 11/20/18 23:59 23:59 23:59 Intake Total 647.5 / 647.5 2330 / 2330 Output Total 400 / 400 Balance 647.5 / 647.5 193 / 1929 Laboratory Tests Past 24 Hrs 11/20/18 11/20/18 11/20/18 05:24 05:24 05:24 WBC 4.1 L RBC 4.41 Hgb 10.3 L Hct 35.0 L MCV 79.4 L MCH 23.4 L MCHC 29.4 L RDW Std Deviation 55.4 H RDW Coeff of Tami 19.2 H Plt Count 93 L MPV 10.9 Immature Gran % (Auto) 1.000 H Neut % (Auto) 74.4 H Lymph % (Auto) 12.2 L [place] % (Auto) 8.3 Eos % (Auto) 3.9 Baso % (Auto) 0.2 Absolute Neuts (auto) 3.1 Absolute Lymphs (auto) 0.50 L Nucleated RBC % 0 Differential Comment SCANNED Platelet Estimate ADEQUATE Sodium 139 Potassium 3.6 Chloride 106 Carbon Dioxide 24.0 Anion Gap 9 BUN 60 H Creatinine 1.70 H Estim Creat Clear Calc 31.27 Est GFR (MDRD) Af Amer 39 L Est GFR (MDRD) Non-Af 32 L BUN/Creatinine Ratio 35.3 H Glucose 107 H Calcium 8.0 L Vancomycin Trough 28.0 H POC Glucose 11/19/18 11/19/18 11/19/18 21:30 16:22 11:36 POC Glucose 149 H 125 H 182 H 11/19/18 08:15 POC Glucose 134 H Discharge Diet: 1800 Calorie Control Diet Discharge Activity: Return to Normal Activity Call your doctor if you observe: Fever of 101 or Higher, - - recurrent flank rash/cellulitis Home Medications: Medications to take at Discharge Ascorbic Acid [Vitamin C] 1,000 mg PO DAILY 02/20/15 Cholecalciferol (VIT D3) [Vitamin D3] 1,000 unit PO DAILY 02/20/15 Furosemide 60 mg PO BID 06/19/16 Levothyroxine [Synthroid] 25 mcg PO DAILY 06/19/16 Sirolimus 1 mg PO DAILY PRN PRN 08/01/16 Atorvastatin Calcium [Lipitor] 10 mg PO QHS 10/19/16 Apremilast [Otezla] 30 mg PO BID 01/15/18 Cyanocobalamin (Vitamin B-12) [Vitamin B-12] 1,000 mcg PO DAILY 05/29/18 Insulin Aspart [Novolog Flexpen] 0 units SC TID 05/29/18 Insulin Aspart [Novolog Flexpen] 8 units SC BIDCM 05/29/18 Insulin Aspart [Novolog Flexpen] 14 units SC DINNER 05/29/18 Insulin Glargine,Hum.rec.anlog [Lantus Solostar] 40 unit SQ BID 05/29/18 Sertraline HCl [Zoloft] 50 mg PO DAILY #1 08/12/19 traZODone [Desyrel] 100 mg PO QHS tab 10/13/18 Ferrous Sulfate 325 mg PO DAILY 11/18/18 Labetalol HCl 600 mg PO BID 11/18/18 Ropinirole HCl [Requip] 1 mg PO BID 11/18/18 Tacrolimus 0.5 mg PO DAILY 11/18/18 Linezolid [Zyvox] 600 mg PO Q12H #20 tab 11/20/18 Following Prescrptions Were Given to Patient: Linezolid [Zyvox] 600 mg PO Q12H #20 tab Transmission Status: Pending to [facility] Primary Care Physician: Velia Archuleta MD [Primary Care Provider] - Within 1 Week Please Follow Up With: Adolph Marsh MD When: Today at 1400 Please Follow Up With: Rosalio Jordan MD When: 2-3 weeks. Call office for appointment. Disposition: Home Minutes spent on discharge:: 32 Patient Condition:: Good Medical Necessity - Tobacco Use Smoking Status: Never smoker Tobacco Use: Non-smoker Meaningful Use Info Meaningful Use Diagnoses (Choose all that apply): None applicable Code Visit Inpatient E&M: 54785 Disch Hosp
[2018-11-20 08:36] LABS: Bedside Glucose 90 mg/dL (70-110)
--- NOTE | 2018-11-20 10:45 | PCM.PN.ID ---
Patient Problems: Active and Suspected Problems (Last Reviewed 11/18/18 @ 20:36 by Dexter Garner MD) Cellulitis of right abdominal wall (Acute) Subjective: Feeling slightly better, still some mild chills, no fever. Rash still sore over R flank. - Physical Exam General: Alert, Cooperative, No apparent distress Lungs: Clear to auscultation, Normal air movement Cardiovascular: Regular rate, Regular Rhythm Abdomen: Soft, Non Tender, Non-Distended Skin: Rash Present - slightly fading redness over R flank, still some soreness, no induration Vital Signs Temp Pulse Resp BP Pulse Ox 97.7 F L 61 16 156/62 H 99 11/20/18 08:15 11/20/18 08:15 11/20/18 08:15 11/20/18 08:15 11/20/18 08:15 Oxygen Flow Rate (L/min) 98 Oxygen Delivery Method Room Air Weight: 108.664 kg Body Mass Index (BMI) 39.2 Finger Stick Blood Glucose 427 Intake and Output for Last 24 Hours 11/18/18 11/19/18 11/20/18 23:59 23:59 23:59 Intake Total 647.5 / 647.5 2330 / 2330 Output Total 400 / 400 Balance 647.5 / 647.5 1930 / 193 Microbiology Past 72 Hours 11/18/18 18:25 Urine Culture - Final Urine, Clean Catch Mixed Gram Positive Organisms Laboratory Tests Past 24 Hrs 11/20/18 11/20/18 11/20/18 05:24 05:24 05:24 WBC 4.1 L RBC 4.41 Hgb 10.3 L Hct 35.0 L MCV 79.4 L MCH 23.4 L MCHC 29.4 L RDW Std Deviation 55.4 H RDW Coeff of Tami 19.2 H Plt Count 93 L MPV 10.9 Immature Gran % (Auto) 1.000 H Neut % (Auto) 74.4 H Lymph % (Auto) 12.[address] [place] % (Auto) 8.3 Eos % (Auto) 3.9 Baso % (Auto) 0.2 Absolute Neuts (auto) 3.1 Absolute Lymphs (auto) 0.50 L Nucleated RBC % 0 Differential Comment SCANNED Platelet Estimate ADEQUATE Sodium 139 Potassium 3.6 Chloride 106 Carbon Dioxide 24.0 Anion Gap 9 BUN 60 H Creatinine 1.70 H Estim Creat Clear Calc 31.27 Est GFR (MDRD) Af Amer 39 L Est GFR (MDRD) Non-Af 32 L BUN/Creatinine Ratio 35.3 H Glucose 107 H Calcium 8.0 L Vancomycin Trough 28.0 H POC Glucose 11/20/18 11/19/18 11/19/18 08:15 21:30 16:22 POC Glucose 90 149 H 125 H 11/19/18 11:36 POC Glucose 182 H Medical Necessity - Tobacco Use Smoking Status: Never smoker Tobacco Use: Non-smoker Route of nutrition/ use of supplements: [] Nutritional Intake: [] IV Site: [] Paz Catheter: [] - Assessment/Plan Antibiotics: [] Assessment/Plan: [] Active and Suspected Problems (Last Reviewed 11/18/18 @ 20:36 by Dexter Garner MD) Cellulitis of right abdominal wall (Acute) Recurrent cellulitis, unclear source. Cont iv vanc. Has derm appt today, plan is d/c home in AM on linezolid 600mg bid for 10 day course. Redness slightly improved today. Will follow
--- NOTE | 2018-11-21 14:41 | CASEMGMT ---
NIEVES BIANCHI Discharge Follow-Up Phone Call. [place]: 14 Strata: 4 Discharge Date: 11/20/18 Adm Dx: Cellulitis Call to pt to inquire about how she has been doing since being discharged from the hospital. Pt states, I'm okay. I'm still a little sore and a little pink, but I'm doing better. Pt states she was able to make it to Dr Marsh's appt yesterday after discharging from [facility] and that he has referred her to see an fox raiser @ [facility]. She also states she is planning on cancelling the appt with Dr Jordan per Dr Marsh's instruction since she will be going to [facility] fox raiser. Pt confirms she is aware of the appt with COREY Hi @ Dr Archuleta's office. Pt states she did received the Zyvox from [facility] prior to discharge and denies having any questions about the medications or discharge instructions. NIEVES BIANCHI thanked pt for choosing [facility]. Rolando DOWNING RN, CM
== END 2018-11-20 11:53 | disposition home or self-care (01) | DRG 603 ==
LOC: ED 17:34 → MS3 19:54
PROVIDERS: Admitting Provider Hospitalist; Emergency Provider Emergency Medicine; Family Provider Internal Medicine; PCP Internal Medicine; Referring Provider Hospitalist
DX: L03.311 Cellulitis of abdominal wall (principal); Z94.4 Liver transplant status; D61.818 Other pancytopenia; E11.22 Type 2 diabetes mellitus with diabetic chronic kidney disease; I12.9 Hypertensive chronic kidney disease with stage 1 through stage 4 chronic kidney disease, or unspecified chronic kidney disease; N18.3 Chronic kidney disease, stage 3 (moderate); D63.1 Anemia in chronic kidney disease; D50.9 Iron deficiency anemia, unspecified; E03.9 Hypothyroidism, unspecified; E78.5 Hyperlipidemia, unspecified; G25.81 Restless legs syndrome; L40.9 Psoriasis, unspecified; M10.9 Gout, unspecified; G47.33 Obstructive sleep apnea (adult) (pediatric); K21.9 Gastro-esophageal reflux disease without esophagitis; F32.9 Major depressive disorder, single episode, unspecified; E66.9 Obesity, unspecified; Z68.39 Body mass index [BMI] 39.0-39.9, adult; Z79.4 Long term (current) use of insulin; Z79.899 Other long term (current) drug therapy; Z88.1 Allergy status to other antibiotic agents; Z85.048 Personal history of other malignant neoplasm of rectum, rectosigmoid junction, and anus; Z85.42 Personal history of malignant neoplasm of other parts of uterus; Z85.41 Personal history of malignant neoplasm of cervix uteri; Z90.81 Acquired absence of spleen; Z90.710 Acquired absence of both cervix and uterus; Z90.49 Acquired absence of other specified parts of digestive tract; Z90.721 Acquired absence of ovaries, unilateral
CPT/HCPCS: 36415; 80048; 80053; 80202; 81001; 82962; 83605; 85025; 85610; 85730; 87040; 87086; 87088; 97802; 99285; J7030; J7040; A4216

== ENCOUNTER → 2018-11-20 15:44 | Outpatient (CLI) | payer MEDICARE, SELFPAY ==
[2018-11-18 19:52] VITALS: BMI 39.2
== END ==
PROVIDERS: Family Provider Internal Medicine; PCP Internal Medicine; Referring Provider Dermatology; Visit Provider Dermatology
DX: L03.311 Cellulitis of abdominal wall (principal); Z94.4 Liver transplant status
CPT/HCPCS: 87070; 87205

== ENCOUNTER 2019-02-18 08:15 | Emergency (ER) | payer MEDICARE, SELFPAY ==
[2018-11-18 19:52] VITALS: BMI 39.2
[2019-02-18 08:16] VITALS: BP 152/73; PULSE 74; RESP 16; TEMP 36.4; O2SAT 98; BMI 40.4
[2019-02-18 08:32] VITALS: BP 152/73; PULSE 74; RESP 16; TEMP 36.4; O2SAT 98
--- NOTE | 2019-02-18 08:38 | RAD_ITS ---
STUDY: X-RAY CHEST REASON FOR EXAM: Female, 63 years old. History of right lower lobe pneumonia. TECHNIQUE: PA and lateral views of the chest. COMPARISON: Comparison is made with prior study dated October 29, 2018. FINDINGS: Focal infiltrate in the posterior medial segment of the left lower lobe. This is superimposed on chronic basilar scarring. There is no demonstrated pleural abnormality. There is borderline cardiomegaly. Normal mediastinum and alvina. Normal visualized pulmonary arteries. There is atherosclerotic tortuosity of the aortic arch and descending thoracic aorta. There are degenerative changes of the visualized thoracic spine. Normal visualized ribs, clavicles, and shoulders. There is no demonstrated abnormality of the visualized soft tissue structures of the upper abdomen. RAD/Chest PA and Lateral IMPRESSION: Left lower lobe infiltrate. Electronically Signed: Naren Boston, at 9:15 EST , Service support ,
--- NOTE | 2019-02-18 08:39 | ED.VIS.URI ---
History of Present Illness Chief Complaint: Cough Informant: Patient, Significant Other Onset: Weeks - 1 Context: Gradual Onset Timing: Continuous Quality: occasionally productive of yellow sputum Current Severity: Moderate Maximum Severity: Moderate Worsened by: - - coughing, exertion Relieved by: - - nothing - the antibiotic is not working Associated Symptoms: Shortness of Breath - when having bronchospasm, Productive Cough, - - rhinorrhea. fevers up to 100.x.. Negative for: Nasal Congestion, Vomiting, Chest Pain, Hemoptysis Narrative: 63-year-old female on immunosuppressive medications for a liver transplant that was remotely performed presenting for 1 week of upper respiratory symptoms that she was prescribed Levaquin for at urgent care 2 days ago. She has taken 1.5 pills, she has not yet taken today's dose, and states she is not feeling better, is having lots of abdominal soreness from coughing so much which started after several days of coughing, and she states she comes to the emergency department because she was told to by urgent care if I was not feeling better. She denies any new symptoms. She does not have any history of chronic lung disease of any kind according to her. 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 Status: Chronic (9) Obstructive sleep apnea syndrome Status: Chronic (10) Pancytopenia Status: Chronic (11) Portal hypertension Status: Chronic (12) Psoriasis Status: Chronic (13) RLS (restless legs syndrome) Status: Chronic (14) uterine and cervical cancer Status: Resolved Past Medical History - Allergies and Home Meds Allergies/Adverse Reactions: Allergies amlodipine [From Norvasc] Adverse Reaction (Severe, Verified 02/18/19 08:35) Hives ampicillin sodium [From Unasyn] Adverse Reaction (Severe, Verified 02/18/19 08:35) Hives buspirone HCl [From BuSpar] Adverse Reaction (Severe, Verified 02/18/19 08:35) Hives lisinopril Adverse Reaction (Severe, Verified 02/18/19 08:35) Swelling naproxen Adverse Reaction (Severe, Verified 02/18/19 08:35) Hives niacin [From Niaspan Extended-Release] Adverse Reaction (Severe, Verified 02/18/19 08:35) Hives omeprazole Adverse Reaction (Severe, Verified 02/18/19 08:35) Other stage 3 kidney failure UNABLE TO TAKE DUE TO TRANSPLALNT sulbactam sodium [From Unasyn] Adverse Reaction (Severe, Verified 02/18/19 08:35) Hives Sulfa (Sulfonamide Antibiotics) Adverse Reaction (Severe, Verified 02/18/19 08:35) Hives cephalexin [From Keflex] Adverse Reaction (Verified 02/18/19 08:35) Hives losartan Adverse Reaction (Verified 02/18/19 08:35) Swelling DURACEF Adverse Reaction (Severe, Uncoded 02/18/19 08:35) Hives Primary Care Physician: Velia Archuleta MD [Primary Care Provider] - Surgical History: appendectomy, cholecystectomy, herniorrhaphy - Incisional hernia repair 2008, hysterectomy, - - Liver transplant, splenectomy, hysterectomy, left knee surgery, removal of left ovary, total mouth extraction Lives: Spouse/ Significant Other Smoking Status: Never smoker - Family History Maternal Family History: Family History (Last Reviewed 11/18/18 @ 20:36 by Dexter Garner MD) Mother Diabetes Anemia Father Hypertension LUNG/RESPIRATORY DISEASE Family History: Reports: Diabetes, Heart Disease Paternal Family History: Family History (Last Reviewed 11/18/18 @ 20:36 by Dexter Garner MD) Mother Diabetes Anemia Father Hypertension LUNG/RESPIRATORY DISEASE Family History: Reports: Cancer, Heart Disease Sibling Family History: Family History (Last Reviewed 11/18/18 @ 20:36 by Dexter Garner MD) Mother Diabetes Anemia Father Hypertension LUNG/RESPIRATORY DISEASE Family History: Reports: - - Cirrhosis Review of Systems General: Reports: Fever, Malaise. Denies: Chills, Sweats Eyes: Denies: Visual changes - bilaterally, Diplopia ENT: Reports: Rhinorrhea. Denies: Bilateral ear pain, Sore throat Cardiovascular: Denies: Chest pain, Palpitations, Heart racing Respiratory: Reports: Dyspnea, Cough, Sputum. Denies: Orthopnea Gastrointestinal: Reports: Abdominal pain - muscular soreness. Denies: Nausea, Vomiting, Diarrhea, Melena, Hematochezia Genitourinary: Denies: Dysuria, Hematuria, Frequency Musculoskeletal: Reports: Myalgias, Back pain - chronic, worse due to coughing, Swelling - chronic, no worse. Denies: Neck pain, Extremity Pain Skin: Denies: Rash, Wounds Neurological: Denies: Headache, Weakness, Numbness Physical Exam Vital Signs/Narrative: Vital Signs Temp Pulse Resp BP Pulse Ox 02/18/19 08:32 97.6 F L 74 16 152/73 H 98 02/18/19 08:16 97.6 F L 74 16 152/73 H 98 Inital Vital Signs reviewed: Yes General: Well nourished, Well developed, Obese, - - no acute distress. conversive in full sentences Head: Normocephalic, Atraumatic Eyes: Perrl, EOMI Ears: Normal external canal, TM's clear Nose: Normal Inspection, No Rhinorrhea Mouth/Throat: Normal Inspection, No Posterior Erythema, Airway Patent Neck: Supple, Nontender, No Lymphadenopathy, No Meningismus Cardiovascular: Regular rate, Regular rhythm, No murmurs Respiratory: No distress, Chest nontender, Wheezing - expiratory bibasilar Abdomen: Soft, Nondistended, Normal bowel sounds, Tender - mildly superficially tender throughout. Negative for: Guarding, Rebound tenderness Back: Nontender, Normal Inspection Extremities: Nontender, Edema - 1+ BLE symmetric to midshins Skin: Normal color, No rash, No Trauma Neurological: Alert, Oriented x3, Cranial nerves II-XII grossly intact, Normal Strength, Normal Sensation, Normal Gait Psychological: Normal affect, Normal Mood Diagnostic/Tx/Re-eval Impressions Chest X-Ray 02/18/19 08:38 IMPRESSION: Left lower lobe infiltrate. Electronically Signed: Naren Boston, at 9:15 EST , Service support , 02/18/19 08:38 Chest PA and Lateral [RAD] Stat Laboratory Results 02/18/19 02/18/19 08:35 08:35 WBC 2.9 L RBC 4.41 Hgb 10.7 L Hct 35.7 L MCV 81.0 MCH 24.3 L MCHC 30.0 L RDW Std Deviation 53.6 H RDW Coeff of Tami 18.2 H Plt Count 82 L MPV 10.4 Immature Gran % (Auto) 1.000 H Neut % (Auto) 69.2 Lymph % (Auto) 18.9 L [place] % (Auto) 7.9 Eos % (Auto) 2.7 Baso % (Auto) 0.3 Absolute Neuts (auto) 2.0 Absolute Lymphs (auto) 0.55 L Nucleated RBC % 0 Differential Comment COMMENT Diff Path Review May foll Sodium 138 Potassium 4.3 Chloride 103 Carbon Dioxide 26.0 Anion Gap 9 BUN 47 H Creatinine 2.06 H Estim Creat Clear Calc 25.81 Est GFR (MDRD) Af Amer 31 L Est GFR (MDRD) Non-Af 26 L BUN/Creatinine Ratio 22.8 H Glucose 136 H Calcium 8.4 L - Medical Decision Making Chest x-ray does show left lower lobe infiltrate. This is not lobar on my interpretation, and is relatively mild, but focal in the posterior medial segment of the left lower lobe according to the radiology interpretation. Her lateral actually looks better than a prior lateral from several months ago. Her labs show chronic pancytopenia and chronic renal insufficiency all of which is relatively stable. Her vital signs are normal with pulse ox at 99% on room air. I do not feel she has failed any antibiotic therapy yet since she has only had 2 pills, and for some reason she took half a pill yesterday instead of an entire 1. I feel at this time she can be discharged with close outpatient follow-up. She was given albuterol treatment and will be discharged with an inhaler to use as needed for dyspnea/bronchospasm. On further discussion with the patient, she took half of a pill yesterday because she was prescribed it that way because of renal dosing. Her EGFR is 26 by our measurement today. We discussed with the pharmacy that she got her pills filled out, she was given the five 1 mg tablets. According to the drug literature, it appears that she was put on renal dosing of Levaquin for bronchitis, but her dose is not high enough for pneumonia. For pneumonia she is supposed to be put on 750 mg every 48 hours. A normal course for pneumonia would be 5 days. Given this I recommend that she start over, she took 500 mg 2 days ago and then to 50 yesterday, she has taken none today and has three 250 mg half pills left. I recommend she take all 3 of those today, I will give her a prescription for 2 more 750 mg pills, to take every 48 hours going forward. She agrees to follow-up. As I advised, she may not even have pneumonia. The x-ray today says she has a subsegmental infiltrate on the left and at urgent care they told her it was on the right. I told her if she does not get better, I recommend she follow-up but if she starts feeling much worse, especially with dyspnea at rest which she has not have except for when she is having bronchospasm, she is welcome to come back to the ER and we can reevaluate her. I discussed with Dr. Barger, she has an appointment with him in the morning tomorrow. ED Disposition - Plan for ED Patient: Disposition: Home or Assisted Living Diagnosis: CAP (community acquired pneumonia), Immunosuppressed status, Pancytopenia Instructions: PNEUMONIA (Adult) Prescriptions: Levofloxacin [Levaquin] 750 mg PO Q48H #2 tab Transmission Status: Pending to [facility] Referrals: Velia Archuleta MD [Primary Care Provider] - 3-5 Days if not improving Ryan Barger DO [STAFF PHYSICIAN] - Keep Patricia appointment (call the office in the morning tomorrow; they will tell you if you need to be seen for your infusion.) Additional Instructions: You need Levaquin 750 mg, 1 pill every 48 hours x3 pills. Take your 3 halves today, which equals 750 mg. The prescription is for the other 2 pills, your next dose will be on February 20.
[2019-02-18 08:49] LABS: Absolute Lymphocyte Count 0.55 X10^3/uL (0.83-4.51); Basophil# 0.01 X10^3/uL; Basophil% 0.3 % (0-1); Eosinophil# 0.08 X10^3/uL; Eosinophils% 2.7 % (0-5); Hematocrit 35.7 % (37-47); Hemoglobin 10.7 g/dL (12.0-15.0); Lymphocyte # 0.55 X10^3/ul (4.0); Lymphocyte % 18.9 % (19-41); Mean Corpuscular Hgb 24.3 pg (27.0-32.0); Mean Platelet Vol. 10.4 fl (6.2-12.0); Monocyte# 0.23 X10^3/uL; Monocyte% 7.9 % (0-10); NRBC Flagged by Analyzer 0 % (0-5); Neutrophil # 2.01 X10^3/uL (2.7-7.7); Neutrophil % 69.2 % (47-70); POSITIVE COUNT YES; POSITIVE DIFFERENTIAL YES; Platelet Count 82 K/mm3 (150-450); RBC Distribution Width CV 18.2 % (11.6-14.6); RBC Distribution Width SD 53.6 fl (35.1-43.9); Red Blood Count 4.41 M/mm3 (4.2-5.4); White Blood Count 2.9 K/mm3 (4.4-11.0)
[2019-02-18 08:50] LABS: Differential Indicated SCAN CRITERIA MET
[2019-02-18] MEDS: Albuterol 2.5 MG/3 ML VIAL.NEB. INHALATION (08:57)
[2019-02-18 09:00] VITALS: PULSE 70; RESP 16; O2SAT 99
[2019-02-18 09:01] LABS: Anion Gap 9 (5-15); BUN 47 mg/dL (7-18); BUN/Creat Ratio 22.8 RATIO (10-20); Calcium,Total 8.4 mg/dL (8.5-10.1); Chloride 103 mmol/L (98-107); Creatinine, Serum 2.06 mg/dL (0.55-1.02); EST Glomerular Filtration Rate 26 mL/min (>60); Est Glom Filt Rate - Afr Amer 31 mL/min (>60); Estimated Creatinine Clearance 25.81 ml/min; Glucose 136 mg/dL (74-106); Potassium 4.3 mmol/L (3.5-5.1); Sodium Level 138 mmol/L (136-145)
[2019-02-18 09:20] VITALS: BP 152/73; PULSE 70; RESP 16; TEMP 36.4; O2SAT 99
[2019-02-18 11:06] VITALS: BP 160/74; PULSE 73; RESP 12; O2SAT 98
[2019-02-18 11:13] VITALS: BP 160/74; PULSE 73; RESP 12; TEMP 36.4; O2SAT 98
[2019-02-19 14:13] LABS: Pathologist Review Reviewed
== END 2019-02-18 11:13 | disposition home or self-care (01) ==
PROVIDERS: Emergency Provider Emergency Medicine; Family Provider Internal Medicine; PCP Internal Medicine
DX: J18.9 Pneumonia, unspecified organism (principal); D61.818 Other pancytopenia; E11.22 Type 2 diabetes mellitus with diabetic chronic kidney disease; D63.1 Anemia in chronic kidney disease; N18.3 Chronic kidney disease, stage 3 (moderate); K76.6 Portal hypertension; K75.81 Nonalcoholic steatohepatitis (NASH); G25.81 Restless legs syndrome; E66.9 Obesity, unspecified; Z68.41 Body mass index [BMI] 40.0-44.9, adult; Z94.4 Liver transplant status; Z79.4 Long term (current) use of insulin; Z79.899 Other long term (current) drug therapy
CPT/HCPCS: 71046; 80048; 85025; 94640; 99282; A4216

== ENCOUNTER 2019-09-10 10:51 | Emergency (ER) | payer MEDICARE, SELFPAY ==
[2019-09-10 10:52] VITALS: BP 151/71; PULSE 64; RESP 19; TEMP 36.5; O2SAT 97; BMI 41.1
--- NOTE | 2019-09-10 11:04 | RAD_ITS ---
STUDY: X-RAY CHEST REASON FOR EXAM: Female, 64 years old. SOB, COUGH, LOSS OF TASTE AND SMELL, FEVERS, AND CHILLS FOR A MONTH OR MORE -- HX OF LIVER TRANSPLANT TECHNIQUE: Single AP portable view of the chest. COMPARISON: Comparison is made with prior study dated February 18, 2019. FINDINGS: The lungs are clear and expanded. There is no demonstrated pleural abnormality. There is moderate cardiac enlargement. Normal mediastinum and alvina. Normal visualized pulmonary arteries. Normal visualized aortic arch and descending thoracic aorta. Normal visualized thoracic spine. Normal visualized ribs, clavicles, and shoulders. There is no demonstrated abnormality of the visualized soft tissue structures of the upper abdomen. RAD/Chest 1 View (Portable) IMPRESSION: Moderate cardiomegaly. Electronically Signed: Naren Boston, at 12:01 EDT , Service support ,
--- NOTE | 2019-09-10 11:04 | EKG12_ITS ---
Test Reason : DYSRHYTHMIA Blood Pressure : / mmHG Vent. Rate : 067 BPM Atrial Rate : 067 BPM P-R Int : 212 ms QRS Dur : 116 ms QT Int : 494 ms P-R-T Axes : 033 -17 060 degrees QTc Int : 521 ms Sinus rhythm with 1st degree A-V block Left ventricular hypertrophy with QRS widening Prolonged QT Abnormal ECG Confirmed by CHRISTAL FOFANA, ARMANDO ([id number]), writer editor STEPHANIE PHAM ([id number]) on 09/14/2019 8:11:26 AM Referred By: DRE Confirmed By:ARMANDO SIEGEL MD
--- NOTE | 2019-09-10 11:06 | ED.VIS.GEN ---
History of Present Illness Chief Complaint: Shortness of Breath Informant: Patient Onset: Weeks Context: Gradual Onset Timing: Continuous Current Severity: Moderate Maximum Severity: Moderate Narrative: The patient is a 64-year-old female with medical history significant for hypertension, diabetes, and prior liver transplant who is on tacrolimus the presents to the emergency department multiple complaints. Patient states that she has had a scant, dry cough, lost of taste and smell, and generalized malaise for about 3 weeks. She states that she has had bilateral lower extremity cramping over the past week. She states she was recently placed on Bumex for her edema. She states her edema has improved, but she just feels generally ill. She is unsure if she is had fever. She does admit to chills. She denies any other systemic symptoms. She denies any recent sick contacts. She is not had chest pain. Prior similar symptoms: No Recent Illness/Hospitalization: No Past Medical History - Allergies and Home Meds Allergies/Adverse Reactions: Allergies amlodipine [From Norvasc] Adverse Reaction (Severe, Verified 09/10/19 10:52) Hives ampicillin sodium [From Unasyn] Adverse Reaction (Severe, Verified 09/10/19 10:52) Hives buspirone HCl [From BuSpar] Adverse Reaction (Severe, Verified 09/10/19 10:52) Hives lisinopril Adverse Reaction (Severe, Verified 09/10/19 10:52) Swelling naproxen Adverse Reaction (Severe, Verified 09/10/19 10:52) Hives niacin [From Niaspan Extended-Release] Adverse Reaction (Severe, Verified 09/10/19 10:52) Hives omeprazole Adverse Reaction (Severe, Verified 09/10/19 10:52) Other stage 3 kidney failure UNABLE TO TAKE DUE TO TRANSPLALNT sulbactam sodium [From Unasyn] Adverse Reaction (Severe, Verified 09/10/19 10:52) Hives Sulfa (Sulfonamide Antibiotics) Adverse Reaction (Severe, Verified 09/10/19 10:52) Hives cephalexin [From Keflex] Adverse Reaction (Verified 09/10/19 10:52) Hives losartan Adverse Reaction (Verified 09/10/19 10:52) Swelling DURACEF Adverse Reaction (Severe, Uncoded 09/10/19 10:52) Hives Primary Care Physician: Velia Archuleta MD [Primary Care Provider] - Prior records reviewed: Yes Past Medical History: - - CHF, diabetes, hypertension, liver transplant Surgical History: appendectomy, cholecystectomy, herniorrhaphy - Incisional hernia repair 2008, hysterectomy, - - Liver transplant, splenectomy, hysterectomy, left knee surgery, removal of left ovary, total mouth extraction Smoking Status: Never smoker - Family History Maternal Family History: Family History (Last Reviewed 11/18/18 @ 20:[address] Dexter Garner MD) Mother Diabetes Anemia Father Hypertension LUNG/RESPIRATORY DISEASE Family History: Reports: Diabetes, Heart Disease Paternal Family History: Family History (Last Reviewed 11/18/18 @ 20:[address] Dexter Garner MD) Mother Diabetes Anemia Father Hypertension LUNG/RESPIRATORY DISEASE Family History: Reports: Cancer, Heart Disease Sibling Family History: Family History (Last Reviewed 11/18/18 @ 20:[address] Dexter Garner MD) Mother Diabetes Anemia Father Hypertension LUNG/RESPIRATORY DISEASE Family History: Reports: - - Cirrhosis Review of Systems General: Reports: Chills, Malaise Eyes: Denies: Visual changes - bilaterally, Diplopia ENT: Denies: Rhinorrhea, Sore throat Cardiovascular: Denies: Chest pain, Palpitations Respiratory: Reports: Cough Gastrointestinal: Reports: Nausea Genitourinary: Denies: Dysuria, Hematuria, Frequency Musculoskeletal: Reports: Myalgias, Swelling Skin: Denies: Rash, Wounds Neurological: Denies: Headache, Weakness, Numbness Physical Exam Vital Signs/Narrative: Vital Signs Temp Pulse Resp BP Pulse Ox 09/10/19 10:52 97.7 F L 64 19 H 151/71 H 97 Inital Vital Signs reviewed: Yes General: Well nourished, Well developed, No Acute Distress Head: Normocephalic, Atraumatic Eyes: Perrl, EOMI ENT: Moist mucous membranes, No rhinorrhea Neck: Supple, Nontender Cardiovascular: Regular rate, Regular rhythm, No murmurs Respiratory: No distress, CTA bilaterally, Chest nontender Abdomen: Soft, Nontender, Nondistended, Normal bowel sounds Back: Nontender, Normal Inspection Extremities: Nontender, No edema Skin: Normal color, No rash Neurological: Alert, Oriented x3, Cranial nerves II-XII grossly intact, Normal Strength, Normal Sensation Psychological: Normal affect, Normal Mood Diagnostic/Tx/Re-eval Clinical Impression(s) from Imaging Studies Chest X-Ray 09/10/19 11:04 IMPRESSION: Moderate cardiomegaly. Electronically Signed: Naren Boston, at 12:01 EDT , Service support , Abnormal Lab Results 09/10/19 09/10/19 09/10/19 12:15 12:15 12:15 WBC 4.6 RBC 3.68 L Hgb 11.0 L Hct 34.1 L MCV 92.7 MCH 29.9 MCHC 32.3 RDW Std Deviation 44.1 H RDW Coeff of Tami 13.2 Plt Count 77 L MPV 11.3 Immature Gran % (Auto) 1.100 H Neut % (Auto) 79.2 H Lymph % (Auto) 10.3 L [place] % (Auto) 5.9 Eos % (Auto) 3.3 Baso % (Auto) 0.2 Absolute Neuts (auto) 3.6 Absolute Lymphs (auto) 0.47 L Nucleated RBC % 0 Differential Comment SCANNED Platelet Estimate MOD DEC PT 13.5 INR 1.1 Sodium 132 L Potassium 4.8 Chloride 94 L Carbon Dioxide 30.0 Anion Gap 8 BUN 85 H Creatinine 3.61 H Estim Creat Clear Calc 14.54 Est GFR (MDRD) Af Amer 16 L Est GFR (MDRD) Non-Af 14 L BUN/Creatinine Ratio 23.5 H Glucose 253 H Calcium 8.6 Total Bilirubin 0.70 AST 23 ALT 30 Alkaline Phosphatase 57 Total Protein 7.2 Albumin 3.6 Globulin 3.6 Albumin/Globulin Ratio 1.0 Urine Color Urine Clarity Urine pH Ur Specific [place] Urine Protein Urine Glucose (UA) Urine Ketones Urine Occult Blood Urine Nitrite Urine Bilirubin Urine Urobilinogen Ur Leukocyte Esterase Urine RBC Urine WBC Ur Squamous Epith Cells Urine Bacteria Urine Mucus 09/10/19 12:37 WBC RBC Hgb Hct MCV MCH MCHC RDW Std Deviation RDW Coeff of Tami Plt Count MPV Immature Gran % (Auto) Neut % (Auto) Lymph % (Auto) [place] % (Auto) Eos % (Auto) Baso % (Auto) Absolute Neuts (auto) Absolute Lymphs (auto) Nucleated RBC % Differential Comment Platelet Estimate PT INR Sodium Potassium Chloride Carbon Dioxide Anion Gap BUN Creatinine Estim Creat Clear Calc Est GFR (MDRD) Af Amer Est GFR (MDRD) Non-Af BUN/Creatinine Ratio Glucose Calcium Total Bilirubin AST ALT Alkaline Phosphatase Total Protein Albumin Globulin Albumin/Globulin Ratio Urine Color Yellow Urine Clarity Clear Urine pH 5.0 Ur Specific [place] 1.020 Urine Protein 100 H Urine Glucose (UA) Normal Urine Ketones Negative Urine Occult Blood 10 H Urine Nitrite Negative Urine Bilirubin Negative Urine Urobilinogen Normal Ur Leukocyte Esterase 25 H Urine RBC 0-5 SEEN Urine WBC 0 SEEN Ur Squamous Epith Cells 0-5 SEEN Urine Bacteria 0 SEEN Urine Mucus 0 SEEN - Medical Decision Making The patient presents with generalized malaise, nonproductive cough, and loss of smell. She states she is had it for a month. She is not hypoxic or tachycardic. She is also concerned because she was recently placed on torsemide, 60 mg twice a day. She states that it has helped her leg swelling significantly, but she has begun to have cramping in her legs. EKG was obtained which was sinus rhythm. There is a mildly prolonged QT which is unchanged from prior. Chest x-ray shows no evidence of volume overload or acute infiltrate. Screening labs are relatively unremarkable except for elevated creatinine. The patient does have a history of chronic kidney disease. She is still making urine without issue. Given the elevation in her creatinine, I did discuss this with her track template maker. At this point, we are going to hold her torsemide until she follows up in the office. I do feel that this patient can safely be managed as an outpatient. She is had symptoms for a month with basically unremarkable work-up. She is comfortable with this plan of care. Impression. 1. Bilateral leg myalgias 2. Acute on chronic kidney disease-secondary to diuretic therapy 3. History of immunosuppression secondary to liver transplant ED Disposition - Plan for ED Patient: Instructions: ED URI Viral Referrals: Velia Archuleta MD [Primary Care Provider] - Additional Instructions: Do not take your torsemide until you speak with Dr. Spear
[2019-09-10 12:27] LABS: Absolute Lymphocyte Count 0.47 X10^3/uL (0.83-4.51); Absolute Neutrophil Count 3.6 X10^3/uL (2.0-7.7); Basophil# 0.01 X10^3/uL; Basophil% 0.2 % (0-1); Eosinophil# 0.15 X10^3/uL; Eosinophils% 3.3 % (0-5); Hematocrit 34.1 % (37-47); Lymphocyte # 0.47 X10^3/ul (4.0); Lymphocyte % 10.3 % (19-41); Mean Corp Hgb Conc 32.3 g/dL (32-36); Mean Corpuscular Hgb 29.9 pg (27.0-32.0); Mean Corpuscular Volume 92.7 fL (81-99); Mean Platelet Vol. 11.3 fl (6.2-12.0); Monocyte# 0.27 X10^3/uL; Monocyte% 5.9 % (0-10); NRBC Flagged by Analyzer 0 % (0-5); Neutrophil # 3.62 X10^3/uL (2.7-7.7); Neutrophil % 79.2 % (47-70); POSITIVE COUNT YES; POSITIVE DIFFERENTIAL YES; Platelet Count 77 K/mm3 (150-450); RBC Distribution Width CV 13.2 % (11.6-14.6); RBC Distribution Width SD 44.1 fl (35.1-43.9); Red Blood Count 3.68 M/mm3 (4.2-5.4); White Blood Count 4.6 K/mm3 (4.4-11.0)
[2019-09-10 12:29] VITALS: BP 152/65; PULSE 73; RESP 12; TEMP 36.9; O2SAT 97
[2019-09-10 12:34] LABS: Differential Indicated SCAN CRITERIA MET
[2019-09-10 12:41] LABS: International Normalized Ratio 1.1; Prothrombin Time (Protime)PT. 13.5 SECONDS (11.7-14.9)
[2019-09-10 12:44] LABS: AST(SGOT) 23 U/L (15-37); Alanine Aminotransfer ALT/SGPT 30 U/L (13-56); Albumin, Serum 3.6 g/dL (3.2-5.0); Alkaline Phosphatase 57 U/L (45-117); Anion Gap 8 (5-15); BUN 85 mg/dL (7-18); BUN/Creat Ratio 23.5 RATIO (10-20); Calcium,Total 8.6 mg/dL (8.5-10.1); Chloride 94 mmol/L (98-107); Creatinine, Serum 3.61 mg/dL (0.55-1.02); EST Glomerular Filtration Rate 14 mL/min (>60); Est Glom Filt Rate - Afr Amer 16 mL/min (>60); Estimated Creatinine Clearance 14.54 ml/min; Globulin 3.6 g/dL (2.2-4.2); Glucose 253 mg/dL (74-106); Potassium 4.8 mmol/L (3.5-5.1); Protein, Total 7.2 g/dL (6.4-8.2); Sodium Level 132 mmol/L (136-145)
[2019-09-10 12:48] LABS: Bacteria 0 SEEN /hpf (None Seen); Mucous, Urine 0 SEEN /hpf (<or=2+); White Blood Cells 0 SEEN /hpf (0-5)
[2019-09-10 12:53] LABS: Color, Urine Yellow (Yellow); Glucose, Dipstick Normal (Normal); Ketone-Dipstick Negative (Negative); Leukocyte Esterase-Dipstick 25 /ul (Negative); Nitrite-Dipstick Negative (Negative); Occult Blood-Urine 10 /ul (Negative); Protein-Dipstick 100 mg/dl (Negative); Urine Bilirubin Dipstick Negative (Negative); Urine Clarity Clear (Clear); Urine Urobilinogen Normal (Normal)
[2019-09-10 13:04] LABS: Red Blood Cells-Urine 0-5 SEEN /hpf (0-5); Squamous Epithelial Cells - UA 0-5 SEEN /hpf (5-10)
[2019-09-10 13:17] LABS: Differential Comment SCANNED
[2019-09-10 13:18] LABS: Platelet Estimate MOD DEC (ADEQ)
[2019-09-10 15:41] VITALS: BP 140/59; PULSE 72; RESP 21; TEMP 37.3; O2SAT 98
== END 2019-09-10 15:44 | disposition home or self-care (01) ==
LOC: ED 12:45
PROVIDERS: Emergency Provider Emergency Medicine; PCP Internal Medicine
DX: M79.10 Myalgia, unspecified site (principal); Z94.4 Liver transplant status; I13.0 Hypertensive heart and chronic kidney disease with heart failure and stage 1 through stage 4 chronic kidney disease, or unspecified chronic kidney disease; E11.22 Type 2 diabetes mellitus with diabetic chronic kidney disease; N18.9 Chronic kidney disease, unspecified; I50.9 Heart failure, unspecified; N17.9 Acute kidney failure, unspecified; T50.2X5A Adverse effect of carbonic-anhydrase inhibitors, benzothiadiazides and other diuretics, initial encounter; Z79.4 Long term (current) use of insulin; Z79.899 Other long term (current) drug therapy
CPT/HCPCS: 71045; 80053; 81001; 85025; 85610; 87635; 93005; 99284; G2023; J7030; A4216; U0003

== ENCOUNTER 2020-01-01 17:09 | Emergency (ER) | payer MEDICARE, SELFPAY ==
[2020-01-01 17:11] VITALS: BP 178/89; PULSE 80; RESP 16; TEMP 36.2; O2SAT 100; BMI 39.6
--- NOTE | 2020-01-01 17:21 | EKG12_ITS ---
Test Reason : Blood Pressure : / mmHG Vent. Rate : 078 BPM Atrial Rate : 078 BPM P-R Int : 192 ms QRS Dur : 134 ms QT Int : 456 ms P-R-T Axes : 045 -35 040 degrees QTc Int : 519 ms Normal sinus rhythm Left axis deviation Left bundle branch block Abnormal ECG Confirmed by CHRISTAL FOFANA, ARMANDO ([id number]), offline editor STEPHANIE PHAM ([id number]) on 01/05/2020 11:17:04 AM Referred By: LORENZO Confirmed By:ARMADNO SIEGEL MD
--- NOTE | 2020-01-01 17:21 | RAD_ITS ---
STUDY: X-RAY CHEST REASON FOR EXAM: Female, 64 years old. Soreness of breath. Nausea and fatigue. TECHNIQUE: Single AP portable view of the chest. COMPARISON: 09/10/2019. FINDINGS: The lungs are clear and expanded. There is no demonstrated pleural abnormality. Normal size heart. Normal mediastinum and alvina. Normal visualized pulmonary arteries. Normal visualized aortic arch and descending thoracic aorta. The thoracic spine is obscured by the mediastinum. There is degenerative osteoarthritis of the bilateral shoulders. There is no demonstrated abnormality of the visualized soft tissue structures of the upper abdomen. RAD/Chest 1 View (Portable) IMPRESSION: Normal heart size. No acute cardiopulmonary disease or interval change Electronically Signed: Stan Price DO at 18:17 EDT Tel [phone], Service support ,
--- NOTE | 2020-01-01 17:23 | ED.VIS.GEN ---
History of Present Illness Chief Complaint: Shortness of Breath Informant: Patient Onset: Days Context: Gradual Onset Timing: Continuous Current Severity: Moderate Maximum Severity: Moderate Narrative: The patient is a 64-year-old female with medical history significant for prior liver transplant in 2007 who is on tacrolimus, underlying chronic kidney disease, who presents to the emergency department generalized malaise, fatigue, and shortness of breath. Patient does follow with nephrology because she has chronic kidney disease. She had outpatient lab work drawn 3 days ago. She was found to have worsening renal function. She states she is just been nauseated and has had increasing leg edema. She denies any fevers or chills. She is had a scant cough, but states is been chronic. She talked to her product inspection coordinator, and given her renal disease, she was sent in for further evaluation. She denies any recent sick contacts. Prior similar symptoms: Yes Recent Illness/Hospitalization: No Past Medical History - Allergies and Home Meds Allergies/Adverse Reactions: Allergies amlodipine [From Norvasc] Adverse Reaction (Severe, Verified 01/01/20 17:10) Hives ampicillin sodium [From Unasyn] Adverse Reaction (Severe, Verified 01/01/20 17:10) Hives buspirone HCl [From BuSpar] Adverse Reaction (Severe, Verified 01/01/20 17:10) Hives lisinopril Adverse Reaction (Severe, Verified 01/01/20 17:10) Swelling naproxen Adverse Reaction (Severe, Verified 01/01/20 17:10) Hives niacin [From Niaspan Extended-Release] Adverse Reaction (Severe, Verified 01/01/20 17:10) Hives omeprazole Adverse Reaction (Severe, Verified 01/01/20 17:10) Other stage 3 kidney failure UNABLE TO TAKE DUE TO TRANSPLALNT sulbactam sodium [From Unasyn] Adverse Reaction (Severe, Verified 01/01/20 17:10) Hives Sulfa (Sulfonamide Antibiotics) Adverse Reaction (Severe, Verified 01/01/20 17:10) Hives cephalexin [From Keflex] Adverse Reaction (Verified 01/01/20 17:10) Hives losartan Adverse Reaction (Verified 01/01/20 17:10) Swelling DURACEF Adverse Reaction (Severe, Uncoded 01/01/20 17:10) Hives Primary Care Physician: Velia Archuleta MD [Primary Care Provider] - Prior records reviewed: Yes Past Medical History: - - Chronic kidney disease, hypertension, hyperlipidemia, prior liver transplant Surgical History: appendectomy, cholecystectomy, herniorrhaphy - Incisional hernia repair 2008, hysterectomy, - - Liver transplant, splenectomy, hysterectomy, left knee surgery, removal of left ovary, total mouth extraction Smoking Status: Never smoker - Family History Maternal Family History: Family History (Last Reviewed 11/18/18 @ 20:[address] Dexter Garner MD) Mother Diabetes Anemia Father Hypertension LUNG/RESPIRATORY DISEASE Family History: Reports: Diabetes, Heart Disease Paternal Family History: Family History (Last Reviewed 11/18/18 @ 20:[address] Dexter Garner MD) Mother Diabetes Anemia Father Hypertension LUNG/RESPIRATORY DISEASE Family History: Reports: Cancer, Heart Disease Sibling Family History: Family History (Last Reviewed 11/18/18 @ 20:[address] Dexter Garner MD) Mother Diabetes Anemia Father Hypertension LUNG/RESPIRATORY DISEASE Family History: Reports: - - Cirrhosis Review of Systems General: Denies: Chills, Fever, Sweats Eyes: Denies: Visual changes - bilaterally, Diplopia ENT: Denies: Rhinorrhea, Sore throat Cardiovascular: Denies: Chest pain, Palpitations Respiratory: Reports: Dyspnea. Denies: Cough, Dyspnea on exertion Gastrointestinal: Reports: Nausea. Denies: Abdominal pain, Vomiting, Diarrhea, Melena, Hematochezia Genitourinary: Denies: Dysuria, Hematuria, Frequency Musculoskeletal: Denies: Back pain, Extremity Pain Skin: Denies: Rash, Wounds Neurological: Denies: Headache, Weakness, Numbness Physical Exam Vital Signs/Narrative: Vital Signs Temp Pulse Resp BP Pulse Ox 01/01/20 17:11 97.2 F L 80 16 178/89 H 100 Inital Vital Signs reviewed: Yes General: Well nourished, Well developed, No Acute Distress Head: Normocephalic, Atraumatic Eyes: Perrl, EOMI ENT: Moist mucous membranes, No rhinorrhea Neck: Supple, Nontender Cardiovascular: Regular rate, Regular rhythm, No murmurs Respiratory: No distress, Chest nontender, Diminished Abdomen: Soft, Nontender, Nondistended, Normal bowel sounds Back: Nontender, Normal Inspection Extremities: Nontender, Edema Skin: Normal color, No rash Neurological: Alert, Oriented x3, Cranial nerves II-XII grossly intact, Normal Strength, Normal Sensation Psychological: Normal affect, Normal Mood Diagnostic/Tx/Re-eval Abnormal Lab Results 01/01/20 01/01/20 01/01/20 17:00 17:43 17:43 WBC 5.4 RBC 3.11 L Hgb 9.5 L Hct 28.9 L MCV 92.9 MCH 30.5 MCHC 32.9 RDW Std Deviation 47.2 H RDW Coeff of Tami 14.1 Plt Count 80 L MPV 11.0 Immature Gran % (Auto) 4.100 H Neut % (Auto) 75.8 H Lymph % (Auto) 10.6 L [place] % (Auto) 6.9 Eos % (Auto) 2.4 Baso % (Auto) 0.2 Absolute Neuts (auto) 4.1 Absolute Lymphs (auto) 0.57 L Nucleated RBC % 0 Differential Comment Sodium 131 L Potassium 4.0 Chloride 96 L Carbon Dioxide 24.0 Anion Gap 11 BUN 125 H* Creatinine 4.43 H Estim Creat Clear Calc 11.85 Est GFR (MDRD) Af Amer 13 L Est GFR (MDRD) Non-Af 11 L BUN/Creatinine Ratio 28.2 H Glucose 289 H Calcium 9.0 Total Bilirubin 0.50 AST 11 L ALT 22 Alkaline Phosphatase 59 Troponin I < 0.015 B-Natriuretic Peptide Total Protein 7.2 Albumin 3.3 Globulin 3.9 Albumin/Globulin Ratio 0.8 L Urine Color Yellow Urine Clarity Sl. Cloudy Urine pH 6.0 Ur Specific [place] 1.010 Urine Protein 30 H Urine Glucose (UA) Normal Urine Ketones Negative Urine Occult Blood 25 H Urine Nitrite Negative Urine Bilirubin Negative Urine Urobilinogen Normal Ur Leukocyte Esterase 500 H Urine RBC 0-5 SEEN Urine WBC 25-50 SEEN Ur Squamous Epith Cells 0 SEEN Urine Bacteria RARE Urine Mucus 0 SEEN 01/01/20 17:43 WBC RBC Hgb Hct MCV MCH MCHC RDW Std Deviation RDW Coeff of Tami Plt Count MPV Immature Gran % (Auto) Neut % (Auto) Lymph % (Auto) [place] % (Auto) Eos % (Auto) Baso % (Auto) Absolute Neuts (auto) Absolute Lymphs (auto) Nucleated RBC % Differential Comment Sodium Potassium Chloride Carbon Dioxide Anion Gap BUN Creatinine Estim Creat Clear Calc Est GFR (MDRD) Af Amer Est GFR (MDRD) Non-Af BUN/Creatinine Ratio Glucose Calcium Total Bilirubin AST ALT Alkaline Phosphatase Troponin I B-Natriuretic Peptide 114.3 H Total Protein Albumin Globulin Albumin/Globulin Ratio Urine Color Urine Clarity Urine pH Ur Specific [place] Urine Protein Urine Glucose (UA) Urine Ketones Urine Occult Blood Urine Nitrite Urine Bilirubin Urine Urobilinogen Ur Leukocyte Esterase Urine RBC Urine WBC Ur Squamous Epith Cells Urine Bacteria Urine Mucus Clinical Impression(s) from Imaging Studies Chest X-Ray 01/01/20 17:21 IMPRESSION: Normal heart size. No acute cardiopulmonary disease or interval change Electronically Signed: Stan PriceDO at 18:17 EDT Tel [phone], Service support , - Rhythm Strip Rhythm Strip: Sinus Rhythm Rate: 80 Ectopy: None - EKG Initial EKG Interpretation: Sinus Rhythm, LBBB Prior: Unchanged - Medical Decision Making Patient presents with shortness of breath that has been worsening over the past month. She has not had cough or fever. Outpatient lab work was concerning for markedly elevated kidney function. Labs were repeated. The patient has evidence of acute kidney injury and is uremic. She is not encephalopathic, but does have nausea and generalized malaise. I discussed this with the product inspection coordinator who requested the patient be transferred to [facility]. The patient was discussed with transplant service, hepatology, and medicine. She was accepted by Dr. Delcid. Covid is pending. The patient be transferred to [facility]. Impression 1. Acute kidney injury 2. Uremia 3. History of liver transplant ED Disposition - Plan for ED Patient: Referrals: Velia Archuleta MD [Primary Care Provider] -
[2020-01-01 17:53] LABS: Absolute Lymphocyte Count 0.57 X10^3/uL (0.83-4.51); Absolute Neutrophil Count 4.1 X10^3/uL (2.0-7.7); Basophil# 0.01 X10^3/uL; Basophil% 0.2 % (0-1); Eosinophil# 0.13 X10^3/uL; Eosinophils% 2.4 % (0-5); Hematocrit 28.9 % (37-47); Hemoglobin 9.5 g/dL (12.0-15.0); Lymphocyte # 0.57 X10^3/ul (4.0); Lymphocyte % 10.6 % (19-41); Mean Corp Hgb Conc 32.9 g/dL (32-36); Mean Corpuscular Hgb 30.5 pg (27.0-32.0); Mean Corpuscular Volume 92.9 fL (81-99); Monocyte# 0.37 X10^3/uL; Monocyte% 6.9 % (0-10); NRBC Flagged by Analyzer 0 % (0-5); Neutrophil # 4.06 X10^3/uL (2.7-7.7); Neutrophil % 75.8 % (47-70); POSITIVE COUNT YES; POSITIVE DIFFERENTIAL YES; Platelet Count 80 K/mm3 (150-450); RBC Distribution Width CV 14.1 % (11.6-14.6); RBC Distribution Width SD 47.2 fl (35.1-43.9); Red Blood Count 3.11 M/mm3 (4.2-5.4); White Blood Count 5.4 K/mm3 (4.4-11.0)
[2020-01-01 17:56] LABS: Differential Indicated SCAN CRITERIA MET
[2020-01-01 18:06] LABS: BNP,B-Type NATRIURETIC PEPTIDE 114.3 pg/mL (0-100)
[2020-01-01 18:10] LABS: Mucous, Urine 0 SEEN /hpf (<or=2+); Squamous Epithelial Cells - UA 0 SEEN /hpf (5-10)
[2020-01-01 18:12] LABS: Color, Urine Yellow (Yellow); Glucose, Dipstick Normal (Normal); Ketone-Dipstick Negative (Negative); Leukocyte Esterase-Dipstick 500 /ul (Negative); Nitrite-Dipstick Negative (Negative); Occult Blood-Urine 25 /ul (Negative); Protein-Dipstick 30 mg/dl (Negative); Urine Bilirubin Dipstick Negative (Negative); Urine Clarity Sl. Cloudy (Clear); Urine Urobilinogen Normal (Normal)
[2020-01-01 18:15] LABS: ALB/GLOB Ratio 0.8 RATIO (0.9-2.4); AST(SGOT) 11 U/L (15-37); Alanine Aminotransfer ALT/SGPT 22 U/L (13-56); Albumin, Serum 3.3 g/dL (3.2-5.0); Alkaline Phosphatase 59 U/L (45-117); Anion Gap 11 (5-15); BUN 125 mg/dL (7-18); BUN/Creat Ratio 28.2 RATIO (10-20); Chloride 96 mmol/L (98-107); Creatinine, Serum 4.43 mg/dL (0.55-1.02); EST Glomerular Filtration Rate 11 mL/min (>60); Est Glom Filt Rate - Afr Amer 13 mL/min (>60); Estimated Creatinine Clearance 11.85 ml/min; Globulin 3.9 g/dL (2.2-4.2); Glucose 289 mg/dL (74-106); Protein, Total 7.2 g/dL (6.4-8.2); Sodium Level 131 mmol/L (136-145)
[2020-01-01 18:23] LABS: Bacteria RARE /hpf (None Seen); Red Blood Cells-Urine 0-5 SEEN /hpf (0-5); White Blood Cells 25-50 SEEN /hpf (0-5)
[2020-01-01 19:20] VITALS: BP 155/67; PULSE 73; RESP 18; O2SAT 99
[2020-01-01 23:06] VITALS: BP 152/71; PULSE 78; RESP 18; O2SAT 98
[2020-01-02 01:03] VITALS: PULSE 88; RESP 19; O2SAT 96
[2020-01-02 03:22] VITALS: PULSE 79; RESP 15; O2SAT 97
--- NOTE | 2020-01-02 04:05 | NURSING ---
CALLED [facility] TO GET AN UPDATE AND WAS TOLD STILL WAITING ON A BED ASSIGNMENT.
[2020-01-02 05:04] VITALS: BP 148/91; PULSE 83; RESP 16; O2SAT 99
[2020-01-02] MEDS: Levothyroxine 25 MCG TABLET PO ×2 (05:32→05:45)
[2020-01-02 08:00] LABS: Bedside Glucose 300 mg/dL (70-110)
[2020-01-02] MEDS: Insulin Lispro 100 UNIT/ML INSULN.PEN 14 UNIT SC (08:03)
[2020-01-02 08:07] VITALS: BP 132/81; PULSE 72; RESP 18; TEMP 36.3; O2SAT 100
[2020-01-05 12:07] LABS: Tacrolimus (FK506) 8.5 ng/mL (2.0-20.0)
== END 2020-01-02 08:52 | disposition short-term general hospital (02) ==
PROVIDERS: Emergency Provider Emergency Medicine; PCP Internal Medicine
DX: N17.9 Acute kidney failure, unspecified (principal); I12.9 Hypertensive chronic kidney disease with stage 1 through stage 4 chronic kidney disease, or unspecified chronic kidney disease; N18.9 Chronic kidney disease, unspecified; E78.5 Hyperlipidemia, unspecified; Z94.4 Liver transplant status
CPT/HCPCS: 71045; 80053; 80197; 81001; 82962; 83880; 84484; 85025; 87635; 93005; 96372; 99285; A4216; U0002

== ENCOUNTER 2020-01-09 12:04 | Emergency (ER) | payer MEDICARE, SELFPAY ==
[2020-01-09 12:05] VITALS: BP 148/63; PULSE 78; RESP 18; TEMP 37.2; O2SAT 100; BMI 39.7
--- NOTE | 2020-01-09 12:31 | RAD_ITS ---
STUDY: X-RAY - LEFT FOOT CLINICAL: Female, 64 years old. Left foot pain and swelling, bilateral leg edema -- unable to walk on left foot x 2 days -- NKI -- pt supposed to start dialysis soon TECHNIQUE: 3 view(s) of the foot. COMPARISON: None. FINDINGS: There is a plantar calcaneal spur. Normal visualized subtalar, talonavicular, calcaneocuboid, tarsal and tarsometatarsal articulations. There is diffuse demineralization of the osseous structures. There is no demonstrated acute fracture. There is mild degenerative arthrosis of the metatarsophalangeal joint of the hallux . Normal tibial and fibular sesamoid bones. Normal interphalangeal joint of the great toe. Normal phalanges of the great toe. Normal second through fifth metatarsophalangeal joints. There is Hammer toe deformity of the second through fifth toes. There is diffuse soft tissue swelling. RAD/Foot min 3 Views IMPRESSION: Demineralization of the osseous structures. Diffuse soft tissue swelling. No demonstrated acute destructive bony process. Electronically Signed: David Bliss MD at 13:18 EST Tel , Service support ,
[2020-01-09 12:54] LABS: Absolute Neutrophil Count 4.3 X10^3/uL (2.0-7.7); Eosinophil# 0.06 X10^3/uL; Eosinophils% 1.1 % (0-5); Hematocrit 26.8 % (37-47); Hemoglobin 8.9 g/dL (12.0-15.0); Lymphocyte % 9.5 % (19-41); Mean Corp Hgb Conc 33.2 g/dL (32-36); Mean Corpuscular Hgb 31.4 pg (27.0-32.0); Mean Corpuscular Volume 94.7 fL (81-99); Mean Platelet Vol. 9.9 fl (6.2-12.0); Monocyte# 0.38 X10^3/uL; Monocyte% 7.2 % (0-10); NRBC Flagged by Analyzer 0 % (0-5); Neutrophil # 4.27 X10^3/uL (2.7-7.7); Neutrophil % 81.2 % (47-70); POSITIVE COUNT YES; POSITIVE DIFFERENTIAL YES; Platelet Count 73 K/mm3 (150-450); RBC Distribution Width CV 15.3 % (11.6-14.6); RBC Distribution Width SD 50.4 fl (35.1-43.9); Red Blood Count 2.83 M/mm3 (4.2-5.4); White Blood Count 5.3 K/mm3 (4.4-11.0)
[2020-01-09 13:00] LABS: Differential Indicated SCAN CRITERIA MET
--- NOTE | 2020-01-09 13:07 | ED.DCSUM_ITS ---
History of Present Illness Informant: Patient Onset: Yesterday Context: Gradual Onset Timing: Continuous Quality: Sharp pain Location: Left foot Current Severity: Severe Maximum Severity: Severe Worsened by: Walking Relieved by: Rest Associated Symptoms: Fatigue Narrative: 64-year-old female presents with left foot pain. Patient was discharged from [facility] 2 days ago for renal failure. Since then she is been having severe pain in her left foot and fatigue. Her leg swelling is not worse than her baseline. No trauma. No weakness no redness no fevers no vomiting she is not lightheaded or dizzy and denies any other review of systems. Prior similar symptoms: Yes Recent Illness/Hospitalization: Yes <Edwrad Singh - Last Filed: 01/09/20 14:40> <Melissa Carter - Last Filed: 01/09/20 22:09> Chief Complaint: Lower Extremity Injury Past Medical History Prior records reviewed: Yes Past Medical History: - - Chronic kidney disease hypertension hyperlipidemia liver transplant chronic anemia chronic thrombocytopenia Surgical History: appendectomy, cholecystectomy, herniorrhaphy - Incisional hernia repair 2008, hysterectomy, - - Liver transplant, splenectomy, hysterectomy, left knee surgery, removal of left ovary, total mouth extraction Lives: With Family Smoking Status: Never smoker Alcohol: None Drugs: None - Family History Maternal Family History: Family History (Last Reviewed 11/18/18 @ 20:[address] Dexter Garner MD) Mother Diabetes Anemia Father Hypertension LUNG/RESPIRATORY DISEASE Family History: Reports: Diabetes, Heart Disease Paternal Family History: Family History (Last Reviewed 11/18/18 @ 20:[address] Dexter Garner MD) Mother Diabetes Anemia Father Hypertension LUNG/RESPIRATORY DISEASE Family History: Reports: Cancer, Heart Disease Sibling Family History: Family History (Last Reviewed 11/18/18 @ 20:[address] Dexter Garner MD) Mother Diabetes Anemia Father Hypertension LUNG/RESPIRATORY DISEASE Family History: Reports: - - Cirrhosis <Edward Singh - Last Filed: 01/09/20 14:40> - Family History Maternal Family History: Family History (Last Reviewed 11/18/18 @ 20:[address] Dexter Garner MD) Mother Diabetes Anemia Father Hypertension LUNG/RESPIRATORY DISEASE Paternal Family History: Family History (Last Reviewed 11/18/18 @ 20:[address] Dexter Garner MD) Mother Diabetes Anemia Father Hypertension LUNG/RESPIRATORY DISEASE Sibling Family History: Family History (Last Reviewed 11/18/18 @ 20:[address] Dexter Garner MD) Mother Diabetes Anemia Father Hypertension LUNG/RESPIRATORY DISEASE <Melissa Carter - Last Filed: 01/09/20 22:09> - Allergies and Home Meds Allergies/Adverse Reactions: Allergies amlodipine [From Norvasc] Adverse Reaction (Severe, Verified 01/09/20 12:09) Hives ampicillin sodium [From Unasyn] Adverse Reaction (Severe, Verified 01/09/20 12:09) Hives buspirone HCl [From BuSpar] Adverse Reaction (Severe, Verified 01/09/20 12:09) Hives cefadroxil [From Duricef] Adverse Reaction (Severe, Verified 01/09/20 12:09) Hives lisinopril Adverse Reaction (Severe, Verified 01/09/20 12:09) Swelling naproxen Adverse Reaction (Severe, Verified 01/09/20 12:09) Hives niacin [From Niaspan Extended-Release] Adverse Reaction (Severe, Verified 01/09/20 12:09) Hives omeprazole Adverse Reaction (Severe, Verified 01/09/20 12:09) Other stage 3 kidney failure UNABLE TO TAKE DUE TO TRANSPLALNT sulbactam sodium [From Unasyn] Adverse Reaction (Severe, Verified 01/09/20 12:09) Hives Sulfa (Sulfonamide Antibiotics) Adverse Reaction (Severe, Verified 01/09/20 12:09) Hives cephalexin [From Keflex] Adverse Reaction (Verified 01/09/20 12:09) Hives losartan Adverse Reaction (Verified 01/09/20 12:09) Swelling Primary Care Physician: Velia Archuleta MD [Primary Care Provider] - 2 Days Review of Systems All systems negative except as indicated General: Reports: Malaise. Denies: Chills, Fever, Sweats Eyes: Denies: Visual changes - bilaterally, Diplopia ENT: Denies: Rhinorrhea, Sore throat Cardiovascular: Denies: Chest pain, Palpitations Respiratory: Denies: Dyspnea, Cough, Dyspnea on exertion Gastrointestinal: Denies: Abdominal pain, Nausea, Vomiting, Diarrhea, Melena, Hematochezia Genitourinary: Denies: Dysuria, Hematuria, Frequency Musculoskeletal: Reports: Extremity Pain. Denies: Back pain, Swelling Skin: Denies: Rash, Wounds Neurological: Denies: Headache, Weakness, Numbness <Edward Singh - Last Filed: 01/09/20 14:40> Physical Exam Vital Signs/Narrative: Vital Signs Temp Pulse Resp BP Pulse Ox 01/09/20 12:05 98.9 F 78 18 148/63 H 100 Inital Vital Signs reviewed: Yes General: Well nourished, Well developed, No Acute Distress Head: Normocephalic, Atraumatic Eyes: Perrl, EOMI ENT: Moist mucous membranes, No rhinorrhea Neck: Supple, Nontender Cardiovascular: Regular rate, Regular rhythm, No murmurs Respiratory: No distress, CTA bilaterally, Chest nontender Abdomen: Soft, Nontender, Nondistended, Normal bowel sounds Back: Nontender, Normal Inspection Extremities: Nontender, Edema, - - Patient has 2+ edema of both lower extremities that is symmetrical. No redness no swelling no signs of trauma no bruising no rash are noted on either lower extremity. DP and PT pulses are normal and symmetrical bilaterally. She has bony tenderness over the dorsum of her midfoot. No redness . Negative for: Calf Tenderness Skin: Normal color, No rash Neurological: Alert, Oriented x3, Cranial nerves II-XII grossly intact, Normal Strength, Normal Sensation Psychological: Normal affect, Normal Mood <Edward Singh - Last Filed: 01/09/20 14:40> Diagnostic/Tx/Re-eval Impressions Foot X-Ray 01/09/20 12:31 IMPRESSION: Demineralization of the osseous structures. Diffuse soft tissue swelling. No demonstrated acute destructive bony process. Electronically Signed: David Bliss MD at 13:18 EST Tel , Service support , 01/09/20 12:31 Xray Foot [Foot min 3 Views] [RAD] Stat Laboratory Results 01/09/20 01/09/20 01/09/20 12:40 12:40 12:40 WBC 5.3 RBC 2.83 L Hgb 8.9 L Hct 26.8 L MCV 94.7 MCH 31.4 MCHC 33.2 RDW Std Deviation 50.4 H RDW Coeff of Tami 15.3 H Plt Count 73 L MPV 9.9 Immature Gran % (Auto) 1.000 H Neut % (Auto) 81.2 H Lymph % (Auto) 9.5 L [place] % (Auto) 7.2 Eos % (Auto) 1.1 Baso % (Auto) 0.0 Absolute Neuts (auto) 4.3 Absolute Lymphs (auto) 0.50 L Nucleated RBC % 0 Platelet Estimate MKD DEC Hypochromasia 1+ ESR 31 H Sodium 134 L Potassium 4.2 Chloride 96 L Carbon Dioxide 26.0 Anion Gap 12 BUN 139 H* Creatinine 5.24 H Estim Creat Clear Calc 10.02 Est GFR (MDRD) Af Amer 11 L Est GFR (MDRD) Non-Af 9 L BUN/Creatinine Ratio 26.5 H Glucose 173 H Uric Acid Calcium 8.7 C-React Prot Ext Range 01/09/20 12:40 WBC RBC Hgb Hct MCV MCH MCHC RDW Std Deviation RDW Coeff of Tami Plt Count MPV Immature Gran % (Auto) Neut % (Auto) Lymph % (Auto) [place] % (Auto) Eos % (Auto) Baso % (Auto) Absolute Neuts (auto) Absolute Lymphs (auto) Nucleated RBC % Platelet Estimate Hypochromasia ESR Sodium Potassium Chloride Carbon Dioxide Anion Gap BUN Creatinine Estim Creat Clear Calc Est GFR (MDRD) Af Amer Est GFR (MDRD) Non-Af BUN/Creatinine Ratio Glucose Uric Acid 14.7 H Calcium C-React Prot Ext Range 67.40 H - Medical Decision Making Patient presents with left foot and ankle pain. Her hemoglobin is consistent with previous values. As is her platelet count. Her BUN and creatinine are consistent with the labs that were drawn 8 days ago here. Patient's x-ray shows no acute findings but her exam is consistent with gout. Her uric acid level is elevated. CRP is elevated but ESR is not elevated. We will give the patient 1 dose of colchicine in the ED. We will start her on Rough And Ready for pain. Because of her history of renal disease and liver transplant we will give her Rough And Ready for home and discharge her with follow-up as scheduled in 2 days with her primary <Edward Singh PA - Last Filed: 01/09/20 14:40> - Medical Decision Making Seen and evaluated with EDUIN. I agree with above. Patient's presenting with atraumatic left foot and ankle pain. Seems to be most prominent over her lateral malleolus. She does have associated warmth and a little bit of redness. She does not have associated cellulitic changes. She has associated pain with short arc range of motion. She does have a history of renal disease as well as significantly elevated uric acid. She does have a history of gout. I suspect this is a gouty flare. She does not have any systemic symptoms or leukocytosis. She does have an elevated CRP. Patient cannot take NSAIDs because of her renal disease. She does not want to take steroids because she has a liver transplant. Patient given 1 dose of colchicine 0.6 mg for renal dose and then Percocet for pain control. Patient is to follow-up with her PCP on Saturday, 2 days from now as well as her policy services representative in 3 days. She is referred to podiatry as well. Patient is counseled on signs and symptoms of a septic joint and indications to return to the emergency room. <Melissa Carter - Last Filed: 01/09/20 22:09> ED Disposition <Edward Singh - Last Filed: 01/09/20 14:40> <Melissa Carter - Last Filed: 01/09/20 22:09> - Plan for ED Patient: Disposition: Home or Assisted Living Diagnosis: History of liver transplant, CKD (chronic kidney disease), stage III, Gout left foot and ankle Instructions: ED ARTHRITIS Gout Prescriptions: Hydrocodone Bitart/Apap 5-325 [Rough And Ready 5MG-325MG] 1 tab PO Q6H PRN PRN 3 Days #12 tab PRN Reason: Pain Prescription Printed Referrals: Velia Archuleta MD [Primary Care Provider] - 2 Days
[2020-01-09 13:12] LABS: Anion Gap 12 (5-15); BUN 139 mg/dL (7-18); BUN/Creat Ratio 26.5 RATIO (10-20); Calcium,Total 8.7 mg/dL (8.5-10.1); Chloride 96 mmol/L (98-107); Creatinine, Serum 5.24 mg/dL (0.55-1.02); EST Glomerular Filtration Rate 9 mL/min (>60); Est Glom Filt Rate - Afr Amer 11 mL/min (>60); Estimated Creatinine Clearance 10.02 ml/min; Glucose 173 mg/dL (74-106); Potassium 4.2 mmol/L (3.5-5.1); Sodium Level 134 mmol/L (136-145)
[2020-01-09 13:55] LABS: Hypochromasia 1+; Platelet Estimate MKD DEC (ADEQ)
[2020-01-09 14:16] LABS: Erythrocyte Sedimentation Rate 31 mm/hr (0-30); Uric Acid 14.7 mg/dL (2.6-6.0)
[2020-01-09 14:30] VITALS: BP 137/48; PULSE 69; RESP 18; O2SAT 100
[2020-01-09 14:56] VITALS: BP 147/57; PULSE 64; RESP 18; O2SAT 100
== END 2020-01-09 15:05 | disposition home or self-care (01) ==
PROVIDERS: Emergency Provider Physician Assistant Medical; PCP Internal Medicine
DX: M10.9 Gout, unspecified (principal); I12.9 Hypertensive chronic kidney disease with stage 1 through stage 4 chronic kidney disease, or unspecified chronic kidney disease; N18.30 Chronic kidney disease, stage 3 unspecified; D63.1 Anemia in chronic kidney disease; E78.5 Hyperlipidemia, unspecified; D69.6 Thrombocytopenia, unspecified; Z99.2 Dependence on renal dialysis; Z94.4 Liver transplant status; Z88.1 Allergy status to other antibiotic agents; Z88.2 Allergy status to sulfonamides; Z88.6 Allergy status to analgesic agent; Z88.8 Allergy status to other drugs, medicaments and biological substances; Z79.899 Other long term (current) drug therapy
CPT/HCPCS: 73630; 80048; 84550; 85025; 85652; 86140; 99283; A4216

== ENCOUNTER → 2020-01-15 | Outpatient (CLI) | payer MEDICARE, SELFPAY ==
[2020-01-09 12:05] VITALS: BMI 39.7
[2020-01-15 09:24] LABS: Protein, Urine (Random) 39.1 mg/dL (<11.9); Protein:Creat Ratio 456 mg/g CRE (0-200)
[2020-01-15 09:46] LABS: Anion Gap 8 (5-15); BUN 129 mg/dL (7-18); BUN/Creat Ratio 28.5 RATIO (10-20); Calcium,Total 8.8 mg/dL (8.5-10.1); Chloride 102 mmol/L (98-107); Creatinine, Serum 4.52 mg/dL (0.55-1.02); EST Glomerular Filtration Rate 11 mL/min (>60); Est Glom Filt Rate - Afr Amer 13 mL/min (>60); Glucose 100 mg/dL (74-106); Potassium 3.3 mmol/L (3.5-5.1); Sodium Level 137 mmol/L (136-145); Uric Acid 12.5 mg/dL (2.6-6.0)
[2020-01-15 10:43] LABS: Absolute Lymphocyte Count 0.48 X10^3/uL (0.83-4.51); Absolute Neutrophil Count 1.9 X10^3/uL (2.0-7.7); Basophil# 0.01 X10^3/uL; Basophil% 0.3 % (0-1); Differential Indicated SCAN CRITERIA MET; Eosinophil# 0.13 X10^3/uL; Eosinophils% 4.5 % (0-5); Hematocrit 26.7 % (37-47); Hemoglobin 8.5 g/dL (12.0-15.0); Lymphocyte # 0.48 X10^3/ul (4.0); Lymphocyte % 16.8 % (19-41); Mean Corp Hgb Conc 31.8 g/dL (32-36); Mean Corpuscular Hgb 30.5 pg (27.0-32.0); Mean Corpuscular Volume 95.7 fL (81-99); Mean Platelet Vol. 10.7 fl (6.2-12.0); Monocyte# 0.31 X10^3/uL; Monocyte% 10.8 % (0-10); NRBC Flagged by Analyzer 0 % (0-5); Neutrophil # 1.89 X10^3/uL (2.7-7.7); Neutrophil % 66.2 % (47-70); POSITIVE DIFFERENTIAL YES; Platelet Count 102 K/mm3 (150-450); RBC Distribution Width CV 14.6 % (11.6-14.6); Red Blood Count 2.79 M/mm3 (4.2-5.4); White Blood Count 2.9 K/mm3 (4.4-11.0)
[2020-01-15 11:09] LABS: ALB/GLOB Ratio 0.8 RATIO (0.9-2.4); AST(SGOT) 20 U/L (15-37); Alanine Aminotransfer ALT/SGPT 35 U/L (13-56); Alkaline Phosphatase 75 U/L (45-117); GGTP 24 U/L (5-55); Globulin 3.7 g/dL (2.2-4.2); Magnesium 2.3 mg/dL (1.6-2.6); Phosphorus 5.8 mg/dL (2.5-4.9); Protein, Total 6.7 g/dL (6.4-8.2)
[2020-01-15 11:11] LABS: Prograf-FK506 TO CCF/UNIV MAILED SPECIMEN
[2020-01-18 11:31] LABS: Pathologist Review Reviewed
== END | disposition home or self-care (01) ==
LOC: LABSPEC 05:16
PROVIDERS: PCP Internal Medicine; Visit Provider Internal Medicine Nephrology
DX: M10.9 Gout, unspecified (principal); N18.30 Chronic kidney disease, stage 3 unspecified; Z94.4 Liver transplant status
CPT/HCPCS: 36415; 80053; 82570; 82977; 83735; 84100; 84156; 84550; 85025

== ENCOUNTER → 2020-01-29 13:46 | Outpatient (CLI) | payer MEDICARE, SELFPAY ==
[2020-01-09 12:05] VITALS: BMI 39.7
[2020-01-29 13:50] VITALS: BP 151/64; PULSE 80; RESP 16; TEMP 36.7; O2SAT 100; BMI 41.1
[2020-01-29 14:12] VITALS: BP 151/64; PULSE 80; RESP 16; TEMP 36.7; O2SAT 100
[2020-01-29 14:35] VITALS: BP 146/60; PULSE 78; RESP 16; TEMP 36.8; O2SAT 100
[2020-01-29 15:27] VITALS: BP 163/65; PULSE 78; RESP 16; TEMP 36.6
[2020-01-29 17:00] VITALS: BP 164/70; PULSE 78; RESP 16; TEMP 36.6; O2SAT 100
== END ==
PROVIDERS: PCP Internal Medicine; Referring Provider Internal Medicine Hematology & Oncology; Visit Provider Internal Medicine Hematology & Oncology
DX: N18.4 Chronic kidney disease, stage 4 (severe) (principal); D63.1 Anemia in chronic kidney disease
CPT/HCPCS: 36430; 86850; 86900; 86901; 86920; 86922; J7040; P9016; A4216

== ENCOUNTER 2020-02-25 10:03 | Emergency (ER) | payer MEDICARE, SELFPAY ==
[2020-01-29 13:50] VITALS: BMI 41.1
[2020-02-25] VITALS (13 sets, daily range): BP systolic 142–170; BP diastolic 60–97; PULSE 69–777; RESP 16–22; TEMP 2.7–36.9; O2SAT 98–100; BMI 39.9
--- NOTE | 2020-02-25 10:27 | ED.VIS.GEN ---
History of Present Illness Chief Complaint: Abn Labs Informant: Patient Onset: Today Narrative: Patient has a history of chronic kidney disease with anemia. She does get routine lab work along with blood transfusions. She had labs drawn this morning and reports that her hemoglobin is down to 8.3. On 28 of January it was 8.6 and she did receive a transfusion following this. Plate count is 114, improved from 83,000 on prior check. Patient does report her stools have been darker than normal. She has no known history of GI bleeding. She also had a CMP, magnesium, and phosphorus level drawn this morning that I was able to review. - Past Medical History (1) CKD (chronic kidney disease), stage III Status: Chronic (2) Diabetes mellitus type 2 in obese Status: Chronic (3) History of liver transplant Status: Chronic (4) Obstructive sleep apnea syndrome Status: Chronic Past Medical History - Allergies and Home Meds Allergies/Adverse Reactions: Allergies amlodipine [From Norvasc] Allergy (Severe, Verified 02/25/20 11:25) Hives ampicillin sodium [From Unasyn] Allergy (Severe, Verified 02/25/20 11:25) Hives buspirone HCl [From BuSpar] Allergy (Severe, Verified 02/25/20 11:25) Hives cefadroxil [From Duricef] Allergy (Severe, Verified 02/25/20 11:25) Hives lisinopril Allergy (Severe, Verified 02/25/20 11:25) Swelling naproxen Allergy (Severe, Verified 02/25/20 11:25) Hives niacin [From Niaspan Extended-Release] Allergy (Severe, Verified 02/25/20 11:25) Hives sulbactam sodium [From Unasyn] Allergy (Severe, Verified 02/25/20 11:25) Hives Sulfa (Sulfonamide Antibiotics) Allergy (Severe, Verified 02/25/20 11:25) Hives cephalexin [From Keflex] Allergy (Verified 02/25/20 11:25) Hives omeprazole Adverse Reaction (Severe, Verified 02/25/20 10:07) Other stage 3 kidney failure UNABLE TO TAKE DUE TO TRANSPLALNT losartan Adverse Reaction (Verified 02/25/20 10:07) Swelling Primary Care Physician: Maria Eugenia Morgan MD [STAFF PHYSICIAN] - 02/29/20 2:00 pm Ryan Barger DO [STAFF PHYSICIAN] - Prior records reviewed: Yes Surgical History: appendectomy, cholecystectomy, herniorrhaphy - Incisional hernia repair 2008, hysterectomy, - - Liver transplant, splenectomy, hysterectomy, left knee surgery, removal of left ovary, total mouth extraction Smoking Status: Never smoker - Family History Maternal Family History: Family History (Last Reviewed 11/18/18 @ 20:[address] Dexter Garner MD) Mother Diabetes Anemia Father Hypertension LUNG/RESPIRATORY DISEASE Family History: Reports: Diabetes, Heart Disease Paternal Family History: Family History (Last Reviewed 11/18/18 @ 20:[address] Dexter Garner MD) Mother Diabetes Anemia Father Hypertension LUNG/RESPIRATORY DISEASE Family History: Reports: Cancer, Heart Disease Sibling Family History: Family History (Last Reviewed 11/18/18 @ 20:[address] Dexter Garner MD) Mother Diabetes Anemia Father Hypertension LUNG/RESPIRATORY DISEASE Family History: Reports: - - Cirrhosis Review of Systems General: Denies: Chills, Fever Eyes: Denies: Visual changes - bilaterally ENT: Denies: Bilateral ear pain Cardiovascular: Denies: Chest pain Respiratory: Denies: Dyspnea, Cough Gastrointestinal: Reports: - - Dark stools. Denies: Abdominal pain, Vomiting, Diarrhea Genitourinary: Denies: Dysuria Musculoskeletal: Denies: Swelling, Extremity Pain Neurological: Denies: Headache Hematologic: Denies: Easy bruising, Easy bleeding Allergy: Denies: Uticaria Physical Exam Vital Signs/Narrative: Vital Signs Temp Pulse Resp BP Pulse Ox 02/25/20 10:04 97.9 F 78 20 H 145/86 H 98 Inital Vital Signs reviewed: Yes General: Well nourished, Well developed Head: Normocephalic ENT: Moist mucous membranes Neck: Supple Cardiovascular: Regular rate, Regular rhythm Respiratory: No distress, CTA bilaterally Abdomen: Soft, Nontender, Normal bowel sounds Rectal: Nontender - Light brown stool on gloved finger. No obvious hemorrhoids. Extremities: Nontender Neurological: Alert, Oriented x3 Psychological: Normal affect Diagnostic/Tx/Re-eval 02/25/20 10:33 Stool Stool Occult Blood (TOMASZ) - Final Occult Blood Positive Laboratory Results 02/25/20 02/25/20 10:30 10:40 Hgb 8.7 L Hct 27.7 L Blood Type AB NEGATIVE Antibody Screen NEGATIVE Crossmatch See Detail - Medical Decision Making Lab work drawn this morning at [facility] is reviewed. Patient's hemoglobin is 8.3 with platelet count of 114,000. Chemistry studies significant for BUN of 94 and a creatinine of 2.78. Magnesium is normal and phosphorus is 6.2. Patient was initially ordered 2 units of blood. Stool guaiac test was performed and was positive as patient did complain of dark stools over the past couple of days. When we were called by blood bank and advised blood was ready they told us that blood needed to be run through a warmer secondary to cold antibodies. After speaking with patient's healthcare specialist as well as infusion center it was recommended to run the blood through our fluid warmer. In light of this blood infusion has been very slow. Patient has received approximately three quarters of 1 unit and I was advised by nursing staff that that unit has timed out. Patient is comfortable with close follow-up and does not wish to stay for any further infusion. I did speak with Dr. Morgan, on-call for [facility] surgery. She will see the patient in the office on the at 2 PM for evaluation of her guaiac positive stools and to arrange colonoscopy. Patient was advised that if she becomes more weak over the holiday weekend, has increased bleeding, or has any concerns she is to return to the emergency room immediately. She voices understanding and agreement. This plan was also discussed with the patient's healthcare specialist. ED Disposition - Plan for ED Patient: Disposition: Home or Assisted Living Diagnosis: Anemia, GI bleed Instructions: ED Anemia, Type Not Specified (Adult), ED Upper GI Bleeding (Stable) Prescriptions: Pantoprazole Sodium [Protonix] 40 mg PO DAILY #30 tab Transmission Status: Received by [employer] #[id number] Referrals: Ryan Barger DO [STAFF PHYSICIAN] - Maria Eugenia Morgan MD [STAFF PHYSICIAN] - 02/29/20 2:00 pm
[2020-02-25 11:13] LABS: Hematocrit 27.7 % (37-47); Hemoglobin 8.7 g/dL (12.0-15.0)
--- NOTE | 2020-02-25 12:08 | ED.RN ---
blood infusion currently on hold. Dr Daniel attempting to speak with Dr. Barger regarding the need to warm the blood and specifics on how he wants it warmed. at this time Dr. Barger has yet to return call to Dr Daniel.
--- NOTE | 2020-02-25 12:20 | ED.RN ---
first unit of blood not given d/t time elapsing between call back from Dr. Barger.
--- NOTE | 2020-02-25 12:29 | ED.RN ---
per blood bank ok to transfuse initial unit of blood.
--- NOTE | 2020-02-25 12:48 | ED.RN ---
using rapid infusor to transfuse blood, dr. pereira at bedside.
--- NOTE | 2020-02-25 12:51 | ED.RN ---
UNIT OF BLOOD INFUSING THROUGH RAPID INFUSER AND FLUID WARMER. PRESSURE ON RAPID INFUSER BAG AT APPROX 50MMHG TO KEEP BLOOD RUNNING
--- NOTE | 2020-02-25 12:57 | ED.RN ---
charge nurse at bedside with this RN, continue to monitor pt and rapid infusor. the rapid infusor is warming the blood, continue to monitor the temperature. per dr. pereira temperature of rapid infusor is not be over 40C. pt denies any concerns at this time.
--- NOTE | 2020-02-25 13:09 | ED.RN ---
dr pereira at bedside with pt. pt denies concerns at this time.
== END 2020-02-25 15:57 | disposition home or self-care (01) ==
PROVIDERS: Emergency Provider Emergency Medicine; PCP Internal Medicine
DX: K92.1 Melena (principal); E11.22 Type 2 diabetes mellitus with diabetic chronic kidney disease; N18.30 Chronic kidney disease, stage 3 unspecified; D63.1 Anemia in chronic kidney disease; G47.33 Obstructive sleep apnea (adult) (pediatric); E66.9 Obesity, unspecified; Z94.4 Liver transplant status; Z79.4 Long term (current) use of insulin; Z79.899 Other long term (current) drug therapy
CPT/HCPCS: 82274; 85014; 85018; 86850; 86900; 86901; 86920; 86922; 96365; 96366; 99283; J7040; J7050; P9016; A4216

== ENCOUNTER 2020-05-12 13:15 | Outpatient (RCR) | payer MEDICARE, SELFPAY ==
[2020-02-25 10:04] VITALS: BMI 39.9
[2020-05-12] MEDS: COVID-19 VACC, MRNA(PFIZER)/PF 30 MCG/0.3 ML SYRINGE IM (11:15)
[2020-06-02] MEDS: COVID-19 VACC, MRNA(PFIZER)/PF 30 MCG/0.3 ML SYRINGE IM (10:50)
== END 2020-08-09 23:59 ==
LOC: IMMUN 13:15
PROVIDERS: PCP Internal Medicine; Referring Provider Family Medicine; Visit Provider Family Medicine
DX: Z23 Encounter for immunization (principal)
CPT/HCPCS: 0001A; 0002A; 91300

== ENCOUNTER → 2020-05-16 10:58 | Outpatient (CLI) | payer MEDICARE, SELFPAY ==
[2020-02-25 10:04] VITALS: BMI 39.9
--- NOTE | 2020-05-16 11:01 | VDUE_ITS ---
Reason For Study: CKD 4 Right Arm Left Arm Right Cephalic Vein at the wrist measures Left Cephalic Vein at the wrist measures 0.26 x 0.25 cm. 0.13 x 0.13 cm. Right Cephalic Vein in the forearm measures Left Cephalic Vein in the forearm measures 0.26 x 0.26 cm. 0.14 x 0.15 cm. Right Cephalic Vein below antecub measures Left Cephalic Vein below antecub measures 0.19 x 0.19 cm. 0.13 x 0.12 cm. Right Cephalic Vein above antecub measures Left Cephalic Vein above antecub measures 0.18 x 0.20 cm. 0.24 x 0.23 cm. Right Cephalic Vein mid bicep measures 0.21 Left Cephalic Vein at mid bicep measures x 0.22 cm. 0.17 x 0.18 cm. Right Cephalic Vein at the shoulder measures Left Cephalic Vein at the shoulder measures 0.15 x 0.15 cm. 0.21 x 0.20 cm. Right Basilic Vein at the origin measures Basilic vein at origin measures 0.32 x 0.29 0.36 x 0.40 cm. cm. Right Basilic Vein mid bicep measures 0.38 x Basilic vein at bicep measures 0.31 x 0.32 0.38 cm. cm. Right Basilic Vein above antecub measures Basilic vein above antecub measures 0.32 x 0.34 x 0.37 cm. 0.35 cm. Right Brachial artery measures 0.41 x 0.41 Left Brachial artery measures 0.40 x 0.44 cm cm with a velocity of 123.5 cm/sec. with a velocity of 106.9 cm/sec. Right Radial artery measures 0.21 x 0.20 cm Left Radial artery measures 0.13 x 0.13 cm with a velocity of 86.9 cm/sec. with a velocity of 101.4 cm/sec. Interpretation Summary Patent, compressible bilateral upper extremity cephalic and basilic veins with dimensions as noted. Normal flow bilateral brachial and radial arteries with diminutive left radial artery. Ordering Physician: Dena Padilla Referring Physician: Velia Archuleta Performed By: Christine Shen RVT ?
== END ==
PROVIDERS: PCP Internal Medicine; Referring Provider Internal Medicine Nephrology; Visit Provider Internal Medicine Nephrology
DX: Z01.818 Encounter for other preprocedural examination (principal); N18.4 Chronic kidney disease, stage 4 (severe)
CPT/HCPCS: 93970

== ENCOUNTER 2020-06-16 05:37 | Day surgery (SDC) | payer MEDICARE, SELFPAY ==
[2020-05-23 13:37] VITALS: BMI 41.6
--- NOTE | 2020-06-14 12:15 | EKG12_ITS ---
Test Reason : PRE OP Blood Pressure : / mmHG Vent. Rate : 074 BPM Atrial Rate : 074 BPM P-R Int : 202 ms QRS Dur : 140 ms QT Int : 462 ms P-R-T Axes : 027 -41 051 degrees QTc Int : 512 ms Normal sinus rhythm Left axis deviation Left bundle branch block Abnormal ECG Confirmed by ESTUARDO FOFANA, DAVE ([id number]), video editor STEPHANIE PHAM ([id number]) on 06/15/2020 11:29:59 AM Referred By: Rosalio Hernández Confirmed By:DAVE MARTE MD
[2020-06-14 13:09] LABS: Hemoglobin 8.7 g/dL (12.0-15.0); Mean Corp Hgb Conc 31.1 g/dL (32-36); Mean Corpuscular Hgb 29.2 pg (27.0-32.0); Mean Platelet Vol. 10.8 fl (6.2-12.0); POSITIVE COUNT YES; Platelet Count 91 K/mm3 (150-450); RBC Distribution Width CV 14.6 % (11.6-14.6); RBC Distribution Width SD 49.8 fl (35.1-43.9); Red Blood Count 2.98 M/mm3 (4.2-5.4); White Blood Count 5.3 K/mm3 (4.4-11.0)
[2020-06-14 13:36] LABS: Anion Gap 9 (5-15); BUN 94 mg/dL (7-18); BUN/Creat Ratio 22.8 RATIO (10-20); Calcium,Total 8.7 mg/dL (8.5-10.1); Chloride 94 mmol/L (98-107); Creatinine, Serum 4.13 mg/dL (0.55-1.02); EST Glomerular Filtration Rate 12 mL/min (>60); Est Glom Filt Rate - Afr Amer 14 mL/min (>60); Glucose 237 mg/dL (74-106); Potassium 3.8 mmol/L (3.5-5.1); Sodium Level 133 mmol/L (136-145)
[2020-06-16] VITALS (8 sets, daily range): BP systolic 111–134; BP diastolic 50–57; PULSE 77–90; RESP 16–18; TEMP 36.1–36.9; O2SAT 93–100; BMI 41.1
--- NOTE | 2020-06-16 05:48 | PCM.HP.BLA ---
Problem List (1) Chronic renal failure, stage 4 (severe) Status: Chronic History and Physical Date of Admission: 06/16/20 Intake Visit Reasons: FISTULA PLACEMENT, 05/16 Chief Complaint: fistula Ciaio Counter Molder Required: No Is patient in pain?: No Allergies amlodipine [From Norvasc] Allergy (Severe, Verified 05/23/20 13:38) Hives ampicillin sodium [From Unasyn] Allergy (Severe, Verified 05/23/20 13:38) Hives buspirone HCl [From BuSpar] Allergy (Severe, Verified 05/23/20 13:38) Hives cefadroxil [From Duricef] Allergy (Severe, Verified 05/23/20 13:38) Hives lisinopril Allergy (Severe, Verified 05/23/20 13:38) Swelling naproxen Allergy (Severe, Verified 05/23/20 13:38) Hives niacin [From Niaspan Extended-Release] Allergy (Severe, Verified 05/23/20 13:38) Hives sulbactam sodium [From Unasyn] Allergy (Severe, Verified 05/23/20 13:38) Hives Sulfa (Sulfonamide Antibiotics) Allergy (Severe, Verified 05/23/20 13:38) Hives cephalexin [From Keflex] Allergy (Verified 05/23/20 13:38) Hives omeprazole Adverse Reaction (Severe, Verified 05/23/20 13:38) Other losartan Adverse Reaction (Verified 05/23/20 13:38) Swelling Medications Ascorbic Acid [Vitamin C] 1,000 mg PO DAILY 02/20/15 [History Confirmed 05/23/20] Cholecalciferol (VIT D3) [Vitamin D3] 1,000 unit PO BID 02/20/15 [History Confirmed 05/23/20] Atorvastatin Calcium [Lipitor] 10 mg PO QHS 10/19/16 [History Confirmed 05/23/20] Insulin Aspart [Novolog Flexpen] 14 units SC TIDCM 05/29/18 [History Confirmed 05/23/20] Insulin Glargine,Hum.rec.anlog [Lantus Solostar] 38 unit SQ BID 05/29/18 [History Confirmed 05/23/20] Sertraline HCl [Zoloft] 50 mg PO DAILY #1 10/13/18 [Rx Confirmed 05/23/20] Tacrolimus [Prograf] 0.5 mg PO BID 09/10/19 [History Confirmed 05/23/20] Trazodone HCl 150 mg PO QHS 09/10/19 [History Confirmed 05/23/20] Vitamin B Complex 1 tab PO DAILY 09/10/19 [History Confirmed 05/23/20] Albuterol Sulfate [Albuterol Sulfate HFA] 2 puff IH Q4H PRN PRN 02/25/20 [History Confirmed 05/23/20] Carvedilol 25 mg PO BID 02/25/20 [History Confirmed 05/23/20] Pantoprazole Sodium [Protonix] 40 mg PO DAILY #30 tab 02/25/20 [Rx Confirmed 05/23/20] epoetin marco-epbx 40,000 unit/mL injection solution 20,000 unit SC QWEEK 05/23/20 [History Confirmed 05/23/20] hydroxyzine HCl 25 mg tablet 25 mg PO BID PRN 05/23/20 [History Confirmed 05/23/20] levothyroxine 25 mcg tablet 88 mcg PO DAILY tablet 05/23/20 [History Confirmed 05/23/20] ropinirole 1 mg tablet 1 mg PO TID tablet 05/23/20 [History Confirmed 05/23/20] torsemide 20 mg tablet 60 mg PO DAILY tablet 05/23/20 [History Confirmed 05/23/20] PFSH Medical History Chronic kidney disease, stage 3 (Acute) Diabetes (Acute) GERD (gastroesophageal reflux disease) (Acute) History of uterine cancer (Acute) LIVER TRANSPLANT (Acute) Sleep apnea (Acute) Hypertension (Chronic) Surgical History History of cholecystectomy (Acute) History of left knee surgery (Acute) History of left salpingo-oophorectomy (Acute) History of radical hysterectomy (Acute) History of splenectomy (Acute) History of ventral hernia repair (Acute) Family History Mother Diabetes Anemia Father Hypertension LUNG/RESPIRATORY DISEASE Social History (Updated 05/23/20 @ 13:[address] Rosalio Hernández MD) Smoking Status: Never smoker HPI HPI HPI: CHRISTINA KUO, is a 64 F who presents to the office today for surgical consultation because she has stage IV chronic renal insufficiency. The patient is referred by her elevator installer Dr Strickland and a written copy of my surgical consult and recommendations will be returned to him. 2008 the patient had a liver transplant. She has not had an episode of rejection. She is on antirejection medication. The liver transwas done because of Mora. She has type 2 diabetes mellitus. Chronic renal sufficiency felt in part to be secondary to that. She is right arm dominant. She has had multiple IV access and needle punctures. She has a bilateral antecubital spaces routinely accessed for blood draws and I believe iron supplementation as well. Most recent hemoglobin 8.8 with hematocrit of 29. She is not yet on hemodialysis. She has stage IV disease. Saphenous Venous Mapping [facility] [address] [place] [address]. [place] [address] Saphenous Vein Mapping, Bilat 05/16/20 1111 MR#: [id number] Name: CHRISTINA KUO [facility] #:[id number] : 1955 64From: Rosalio Hernández MD Attending Dr: LEILANI Delgadotatus: REG CLI Ordering Dr: Dena Padilla MDDate: 05/16/20 Location:CVSSex:FC Admitted: Reason For Study: CKD 4 Right Arm Left Arm Right Cephalic Vein at the wrist measures Left Cephalic Vein at the wrist measures 0.26 x 0.25 cm. 0.13 x 0.13 cm. Right Cephalic Vein in the forearm measures Left Cephalic Vein in the forearm measures 0.26 x 0.26 cm. 0.14 x 0.15 cm. Right Cephalic Vein below antecub measures Left Cephalic Vein below antecub measures 0.19 x 0.19 cm. 0.13 x 0.12 cm. Right Cephalic Vein above antecub measures Left Cephalic Vein above antecub measures 0.18 x 0.20 cm. 0.24 x 0.23 cm. Right Cephalic Vein mid bicep measures 0.21 Left Cephalic Vein at mid bicep measures x 0.22 cm. 0.17 x 0.18 cm. Right Cephalic Vein at the shoulder measures Left Cephalic Vein at the shoulder measures 0.15 x 0.15 cm. 0.21 x 0.20 cm. Right Basilic Vein at the origin measures Basilic vein at origin measures 0.32 x 0.29 0.36 x 0.40 cm. cm. Right Basilic Vein mid bicep measures 0.38 x Basilic vein at bicep measures 0.31 x 0.32 0.38 cm. cm. Right Basilic Vein above antecub measures Basilic vein above antecub measures 0.32 x 0.34 x 0.37 cm. 0.35 cm. Right Brachial artery measures 0.41 x 0.41 Left Brachial artery measures 0.40 x 0.44 cm cm with a velocity of 123.5 cm/sec. with a velocity of 106.9 cm/sec. Right Radial artery measures 0.21 x 0.20 cm Left Radial artery measures 0.13 x 0.13 cm with a velocity of 86.9 cm/sec. with a velocity of 101.4 cm/sec. Interpretation Summary Patent, compressible bilateral upper extremity cephalic and basilic veins with dimensions as noted. Normal flow bilateral brachial and radial arteries with diminutive left radial artery. Ordering Physician: Dena Padilla Referring Physician: Velia Archuleta Performed By: Christine Shen RVT ? 05/16/20 589 Date Rosalio Hernández MD HPI HPI HPI: CHRISTINA KUO, is a 64 F who presents to the office today for ROS General General: Yes weight change and fatigue; no appetite, colon cancer, breast cancer or weakness HEENT HEENT: No difficulty swallowing, eye injury, eye surgery, swollen glands or hoarseness Endo Endocrine: Yes thyroid disease and diabetes mellitus; no thyroid cancer, Hair loss, heat intolerance or cold intolerance Skin Skin: Yes rash; no changing moles Breast Breast: No left breast lump, right breast lump, nipple discharge, breast pain, abnormal mammogram, abnormal US or breast enlargement Musc Musculoskeletal: Yes back problems and gout; no arthritis, rheumatoid arthritis or joint pain Cardio Cardiovascular: Yes murmur and high blood pressure; no pacemaker, heart disease, atrial fibrillation, heart attack, heart stent, palpitations, shortness of breat with exertion or chest pain Psych Psychiatric: Yes depression and anxiety; no hearing voices Resp Respiratory: Yes shortness of breath, Yes sleep apnea, No cough, Yes COPD, No asthma, No emphysema, No wheezing Gastro Gastrointestinal: No abdominal pain, No nausea or vomiting, No diarrhea, No constipation, No blood in stool, No acid reflux, No hemorrhoids, No ulcers, No gallbladder problem, No black,tarry stools Erik Hematologic: No blood thinners, Yes blood disorders, Yes bleeding, Yes anemia, Yes blood clots Neuro Neurologic: No system reviewed and no additional complaints, except as docu, No as per HPI, No abnormal walking, No abnormal hearing, No abnormal movements, No abnormal speech, No behavioral changes, No burning sensations, No confusion, No seizure-like activity, No unsteadiness, No dizziness, No localized weakness, No frequent falls, No headache(s), No lack of coordination, No loss of vision, No memory loss, Yes numbness, No other visual disturbances, No radiating pain, No restless legs, No sensory deficit, No fainting, Yes tingling, No tremor(s), No weakness, No other Exam Const General: cooperative, comfortable, no acute distress Nutritional Appearance: obese Orientation: alert, awake [facility] Head: normal to inspection Eyes General: appearance normal, both eyes and all related structures Chest Breast Palpation: No nipple discharge Resp Effort & Inspection: normal respiratory effort Auscultation: clear to auscultation bilaterally Cardio Rate: regular rate Rhythm: regular rhythm Heart Sounds: murmur GI Palpation: soft Other: Healed vertical epigastric incision, I am not able to detect any internal organs Musc Cervical Spine: normal cervical lordosis Neuro Cognition: normal cognition Extrem General: no calf tenderness Psych Affect: normal affect Assessment & Plan Problems 1. Chronic renal failure, stage 4 (severe) N18.4 Plan I performed ultrasound inspection of the patient's left upper extremity. Cephalic vein diminutive throughout. Evidence of multiple needle puncture sites and scarring right at the antecubital space. This is similar to the right antecubital space. The basilic vein however appears to be patent and compressible. I recommended the patient stage I left upper extremity basilic vein to brachial artery AV fistula creation. I have discussed the technique, benefit, risk of alternatives. No guarantees of success have been offered. The patient is aware that she will require a future transposition. She has had an opportunity to ask and have questions answered. Her only anticoagulant is aspirin which will be continued. She is on tacrolimus which will be continued. Copy: Dr. Strickland and Dr. Geremias Hernández M.D., F.A.C.S. Coding Level of Care Code 46490 Diagnoses Chronic renal failure, stage 4 (severe) N18.4 I have re-examined the patient. There are no clinical changes since date of exam. Procedure Criteria Procedure Type: Elective COVID Risk Discussion: The surgeon/proceduralist and patient have discussed in detail the risk of exposure to and/or potential harm posed by the COVID-19 virus with having a surgery/procedure at this time versus the risk of delaying the surgery/procedure. It is not possible to know either the risk of delaying the surgery or procedure or chance of getting an infection with perfect accuracy, but a joint decision was made between the patient and the surgeon/proceduralist to proceed at this time with the scheduled surgery/procedure as indicated on the consent form.
--- NOTE | 2020-06-16 05:49 | DCINST_ITS ---
Discharge Diet: Renal Diet Discharge Activity: May Not Drive - for 2-3 days or while taking narcotic pain medications., May Shower, May Take a Tub Bath - in 5 days. Lifting Restrictions: 5 pounds Keep extremity elevated above heart level: - - Keep arm elevated above the heart level for 3 days. Additional Activity Instructions:: Exercise hand vigorously with a stress ball. Call your doctor if your incision/area has: Continuous Slow Oozing, Sudden Increased Bleeding - apply pressure and call your doctor., Increased Pain/ Swelling, Increased Redness, Foul Smelling Discharge Call your doctor if you observe: Fever of 101 or Higher Suture Line Care: Avoid Pulling/Pushing, Avoid Pinching/Bending Cleanse incision/area with: Keep Dressing Clean & Dry Additional Dressing/Incision Instructions:: Change or remove dressing in one day. May protect with a gauze bandaid. Allergies/Adverse Reactions: Allergies amlodipine [From Norvasc] Allergy (Severe, Verified 06/10/20 13:16) Hives ampicillin sodium [From Unasyn] Allergy (Severe, Verified 06/10/20 13:16) Hives buspirone HCl [From BuSpar] Allergy (Severe, Verified 06/10/20 13:16) Hives cefadroxil [From Duricef] Allergy (Severe, Verified 06/10/20 13:16) Hives lisinopril Allergy (Severe, Verified 06/10/20 13:16) Swelling naproxen Allergy (Severe, Verified 06/10/20 13:16) Hives niacin [From Niaspan Extended-Release] Allergy (Severe, Verified 06/10/20 13:16) Hives sulbactam sodium [From Unasyn] Allergy (Severe, Verified 06/10/20 13:16) Hives Sulfa (Sulfonamide Antibiotics) Allergy (Severe, Verified 06/10/20 13:16) Hives cephalexin [From Keflex] Allergy (Verified 06/10/20 13:16) Hives omeprazole Adverse Reaction (Severe, Verified 05/23/20 13:38) Other stage 3 kidney failure UNABLE TO TAKE DUE TO TRANSPLALNT losartan Adverse Reaction (Verified 05/23/20 13:38) Swelling Medications to take at Discharge Ascorbic Acid [Vitamin C] 1,000 mg PO DAILY 02/20/15 Cholecalciferol (VIT D3) [Vitamin D3] 1,000 unit PO BID 02/20/15 Atorvastatin Calcium [Lipitor] 10 mg PO QHS 10/19/16 Insulin Aspart [Novolog Flexpen] 14 units SC TIDCM 05/29/18 Insulin Glargine,Hum.rec.anlog [Lantus Solostar] 38 unit SQ BID 05/29/18 Sertraline HCl [Zoloft] 50 mg PO DAILY #1 10/13/18 Tacrolimus [Prograf] 0.5 mg PO BID 09/10/19 Trazodone HCl 150 mg PO QHS 09/10/19 Vitamin B Complex 1 tab PO DAILY 09/10/19 Albuterol Sulfate [Albuterol Sulfate HFA] 2 puff IH Q4H PRN PRN 02/25/20 Carvedilol 25 mg PO BID 02/25/20 Pantoprazole Sodium [Protonix] 40 mg PO DAILY #30 tab 02/25/20 epoetin marco-epbx 40,000 unit/mL injection solution 20,000 unit SC .QOWEEK 05/23/20 hydroxyzine HCl 25 mg tablet 25 mg PO BID PRN 05/23/20 levothyroxine 25 mcg tablet 88 mcg PO DAILY tablet 05/23/20 ropinirole 1 mg tablet 1 mg PO .QAM tablet 05/23/20 torsemide 20 mg tablet 60 mg PO DAILY tablet 05/23/20 Aspirin E.C. [Ecotrin] 81 mg PO DAILY@0800 06/10/20 Metolazone [Zaroxolyn] 5 mg PO QODAY 06/10/20 Ropinirole HCl [Requip Xl] 2 mg PO QHS 06/10/20 Sevelamer Carbonate [Renvela] 800 mg PO TID 06/10/20 Primary Care Physician: Velia Archuleta MD [Primary Care Provider] - Test Results: Test results from this visit will be discussed in further detail at your follow- up appointment, if applicable. Please Follow Up With: Rosalio Hernández MD - [phone] When: Call to make an appointment for followup in approx. 10 days
[2020-06-16 07:05] LABS: Bedside Glucose 196 mg/dL (70-110)
[2020-06-16] MEDS: Bupivacaine Mpf 0.5% 30 ML VIAL (07:08)
[2020-06-16] MEDS: Heparin Injection (Vial) 5,000 UNIT/ML VIAL 5000 UNIT (08:00)
[2020-06-16] MEDS: Lidocaine 1% (30 ml sdv) 30 ML Vial (08:36)
--- NOTE | 2020-06-16 08:41 | OP.PCM_ITS ---
Problem List (1) Chronic renal failure, stage 4 (severe) Status: Chronic Report of Operation Date of Procedure: 06/16/20 Pre-Operative Diagnosis: Stage IV chronic renal insufficiency in need of arteriovenous hemodialysis access Post-Operative Diagnosis: Same Surgery/Procedure Performed:: Stage I left extremity basilic vein to brachial artery arteriovenous hemodialysis fistula creation Description of Surgical Findings:: Timeout and informed consent was obtained. 64-year-old female was taken to the operating placed supine on the table and underwent monitored anesthesia care. Clean procedure. No antibiotics required. The left upper extremity was sterilely prepped and draped. 1% lidocaine mixed 50-50 with 0.5% Marcaine was used as a local anesthetic. Throughout the procedure a total of 13 cc was used. Local was instilled. This was after ultrasound mapping. An oblique incision was made in the left antecubital area sharp and blunt dissection was used to identify the basilic vein it was circumferentially dissected free. The anterior wall was inked marked. Sharp and blunt dissection was used to identify the brachial artery at the antecubital crease. Based upon weight the patient received 10,000 units of heparin intravenously. Peripheral vascular clamps were placed on the brachial artery 11 blade was used to make an arteriotomy which was extended with Ibarra scissors. The vein was ligated distally with a Hemoclip. It was spatulated. A end-to-side anastomosis was created with a running 7-0 Prolene. A single repair suture was required. Good hemostasis was achieved. The patient received 20 mg of protamine as reversal. The hand was viable at the completion. There was a good 2-3+ radial pulse. There was good Doppler flow within the fistula. The wound was closed in layers with a deep layer of interrupted 3-0 Vicryl and then a running subicular 4-0 Monocryl. Steri-Strips Telfa tape dressings applied. Sponge and instrument and needle counts were rep orted to the surgeon to be correct. Blood loss minimal. Specimens none. Drains none. Blood loss minimal. Rosalio Hernández M.D., F.A.C.S. Type of Anesthesia:: Local MAC Anesthesiologist: Philip Vargas
== END 2020-06-16 10:14 | disposition home or self-care (01) ==
LOC: SDC 05:41 → AC 05:42
PROVIDERS: PCP Internal Medicine; Referring Provider Surgery; Visit Provider Surgery
PROC: (CPT 36821; principal; 2020-06-16 07:15)
DX: I12.9 Hypertensive chronic kidney disease with stage 1 through stage 4 chronic kidney disease, or unspecified chronic kidney disease (principal); E11.22 Type 2 diabetes mellitus with diabetic chronic kidney disease; N18.4 Chronic kidney disease, stage 4 (severe); E11.42 Type 2 diabetes mellitus with diabetic polyneuropathy; I44.7 Left bundle-branch block, unspecified; G25.81 Restless legs syndrome; K21.9 Gastro-esophageal reflux disease without esophagitis; K90.0 Celiac disease; K74.60 Unspecified cirrhosis of liver; K75.81 Nonalcoholic steatohepatitis (NASH); F32.9 Major depressive disorder, single episode, unspecified; F41.9 Anxiety disorder, unspecified; R01.1 Cardiac murmur, unspecified; Z94.4 Liver transplant status; Z99.2 Dependence on renal dialysis; Z79.4 Long term (current) use of insulin; Z79.899 Other long term (current) drug therapy
CPT/HCPCS: 01844; 36821; 36415; 80048; 82962; 85027; 93005; J7040; J2405

== ENCOUNTER → 2020-06-24 10:19 | Outpatient (CLI) | payer MEDICARE, SELFPAY ==
[2020-06-16 06:20] VITALS: BMI 41.1
[2020-06-24 10:27] VITALS: BP 145/62; PULSE 75; RESP 18; TEMP 35.9; O2SAT 98; BMI 41.1
[2020-06-24] MEDS: 0.9% NaCl Peripheral Flush Adult/Peds IV (10:37)
[2020-06-24 11:21] VITALS: BP 134/61; PULSE 76; RESP 16; TEMP 36.1; O2SAT 100
[2020-06-24 12:16] VITALS: BP 133/59; PULSE 73; RESP 18; TEMP 36; O2SAT 99
[2020-06-24 13:26] VITALS: BP 114/69; PULSE 79; RESP 16; TEMP 35.8; O2SAT 98
== END ==
PROVIDERS: PCP Internal Medicine; Referring Provider Internal Medicine Hematology & Oncology; Visit Provider Internal Medicine Hematology & Oncology
DX: Z51.89 Encounter for other specified aftercare (principal); N18.4 Chronic kidney disease, stage 4 (severe)
CPT/HCPCS: 36430; 86850; 86900; 86901; 86920; 86922; J7040; P9016; A4216

== ENCOUNTER 2020-08-03 08:55 | Day surgery (SDC) | payer MEDICARE, SELFPAY ==
[2020-06-27 12:59] VITALS: BMI 41.1
[2020-07-28 13:16] VITALS: BMI 41.1
[2020-07-28 14:53] LABS: Hematocrit 25.6 % (37-47); Mean Corp Hgb Conc 31.3 g/dL (32-36); Mean Corpuscular Hgb 30.3 pg (27.0-32.0); Mean Platelet Vol. 10.8 fl (6.2-12.0); Platelet Count 113 K/mm3 (150-450); RBC Distribution Width CV 16.9 % (11.6-14.6); RBC Distribution Width SD 58.4 fl (35.1-43.9); Red Blood Count 2.64 M/mm3 (4.2-5.4)
[2020-07-28 15:06] LABS: Protein, Urine (Random) 27.4 mg/dL (<11.9); Protein:Creat Ratio 510 mg/g CRE (0-200)
[2020-07-28 15:50] LABS: Anion Gap 9 (5-15); BUN 97 mg/dL (7-18); BUN/Creat Ratio 22.3 RATIO (10-20); Calcium,Total 8.8 mg/dL (8.5-10.1); Chloride 98 mmol/L (98-107); Creatinine, Serum 4.35 mg/dL (0.55-1.02); EST Glomerular Filtration Rate 11 mL/min (>60); Est Glom Filt Rate - Afr Amer 13 mL/min (>60); Glucose 268 mg/dL (74-106); Potassium 3.9 mmol/L (3.5-5.1); Sodium Level 133 mmol/L (136-145)
[2020-08-03 09:29] VITALS: BP 137/70; PULSE 72; RESP 12; TEMP 36.8; O2SAT 100; BMI 41.0
[2020-08-03] MEDS: Lactated Ringers 1,000 ML 100 ML IV (09:36)
[2020-08-03 09:40] LABS: Bedside Glucose 126 mg/dL (70-110)
[2020-08-03] MEDS: 0.9% Normal Saline 1,000 ML 100 ML IV (09:47)
--- NOTE | 2020-08-03 10:46 | HP.PCM_ITS ---
History and Physical Date of Admission: 08/03/20 ntake Visit Reasons: Update H&P Stage II- 08/03 Chief Complaint: Update H&P Stage II fistula creation Wire Stripper Required: No Accompanied by: Grandson Is patient in pain?: No Allergies amlodipine [From Norvasc] Allergy (Severe, Verified 07/28/20 13:13) Hives ampicillin sodium [From Unasyn] Allergy (Severe, Verified 07/28/20 13:13) Hives buspirone HCl [From BuSpar] Allergy (Severe, Verified 07/28/20 13:13) Hives cefadroxil [From Duricef] Allergy (Severe, Verified 07/28/20 13:13) Hives lisinopril Allergy (Severe, Verified 07/28/20 13:13) Swelling naproxen Allergy (Severe, Verified 07/28/20 13:13) Hives niacin [From Niaspan Extended-Release] Allergy (Severe, Verified 07/28/20 13:13) Hives sulbactam sodium [From Unasyn] Allergy (Severe, Verified 07/28/20 13:13) Hives Sulfa (Sulfonamide Antibiotics) Allergy (Severe, Verified 07/28/20 13:13) Hives cephalexin [From Keflex] Allergy (Verified 07/28/20 13:13) Hives omeprazole Adverse Reaction (Severe, Verified 07/28/20 13:13) Other losartan Adverse Reaction (Verified 07/28/20 13:13) Swelling Medications ascorbic acid (vitamin C) 1,000 mg PO DAILY 02/20/15 [History Confirmed 07/28/20] cholecalciferol (vitamin D3) 1,000 unit PO BID 02/20/15 [History Confirmed 07/28/20] atorvastatin 10 mg PO QHS 10/19/16 [History Confirmed 07/28/20] insulin aspart U-100 [Novolog Flexpen U-100 Insulin] 14 units SC TIDCM 05/29/18 [History Confirmed 07/28/20] insulin glargine [Lantus Solostar U-100 Insulin] 40 unit SQ BID 05/29/18 [History Confirmed 07/28/20] sertraline 50 mg PO DAILY #1 10/13/18 [Rx Confirmed 07/28/20] tacrolimus 0.5 mg PO BID 09/10/19 [History Confirmed 07/28/20] trazodone 200 mg PO QHS 09/10/19 [History Confirmed 07/28/20] vitamin B complex 1 tablet PO DAILY 09/10/19 [History Confirmed 07/28/20] albuterol sulfate 2 puff IH Q4H PRN PRN 02/25/20 [History Confirmed 07/28/20] carvedilol 25 mg PO BID 02/25/20 [History Confirmed 07/28/20] epoetin marco-epbx 40,000 unit/mL injection solution 20,000 unit SC .QOWEEK 05/23/20 [History Confirmed 07/28/20] hydroxyzine HCl 25 mg tablet 25 mg PO BID PRN 05/23/20 [History Confirmed 07/28/20] levothyroxine 25 mcg tablet 88 mcg PO DAILY tablet 05/23/20 [History Confirmed 07/28/20] ropinirole 1 mg tablet 1 mg PO .QAM tablet 05/23/20 [History Confirmed 07/28/20] torsemide 20 mg tablet 60 mg PO DAILY tablet 05/23/20 [History Confirmed 07/28/20] aspirin 81 mg PO DAILY@0800 06/10/20 [History Confirmed 07/27/20] metolazone 5 mg PO QODAY 06/10/20 [History Confirmed 07/28/20] ropinirole 2 mg PO QHS 06/10/20 [History Confirmed 07/28/20] sevelamer carbonate 800 mg PO TID 06/10/20 [History Confirmed 07/28/20] pantoprazole 40 mg PO PRN PRN 07/27/20 [History Confirmed 07/28/20] PFSH Medical History Anemia Back pain Blister Cancer Cardiology follow-up encounter Celiac disease Chronic kidney disease, stage 3 Chronic renal failure, stage 4 (severe) COPD (chronic obstructive pulmonary disease) CPAP (continuous positive airway pressure) dependence Diabetes DVT (deep venous thrombosis) Gastric reflux GERD (gastroesophageal reflux disease) History of echocardiogram (~01/22/20) History of edema History of irregular heartbeat History of renal disease History of stress test (~12/07/19) History of uterine cancer Hx of Krueger's palsy Hypertension Insulin dependent diabetes mellitus LIVER [employer]ANT Sleep apnea Wears dentures Wears glasses Surgical History History of cholecystectomy History of left knee surgery History of left salpingo-oophorectomy History of radical hysterectomy History of splenectomy History of ventral hernia repair S/P arteriovenous (AV) fistula creation (~06/16/20) Family History Mother Diabetes Anemia Father Hypertension LUNG/RESPIRATORY DISEASE Social History (Updated 07/28/20 @ 13:11 by Silvia Newby) Smoking Status: Never smoker substance use type: does not use HPI HPI HPI: CHRISTINA KUO, is a 65 F who presents to the office today for CHRISTINA KUO, is a 65 F who presents to the office today for s/p stage I left upper extremity basilic vein to brachial artery AV fistula creation. Dr. Hernández performed this creation on 06/16/20. Patient tolerated the procedure well. She denies any pa in/discomfort. She is not currently on dialysis. She is continuing to perform hand exercises. ROS General General: Yes weight change and fatigue; No appetite, colon cancer, breast cancer or weakness HEENT HEENT: No difficulty swallowing, eye injury, eye surgery, swollen glands or hoarseness Endo Endocrine: Yes thyroid disease and diabetes mellitus; No thyroid cancer, Hair loss, heat intolerance or cold intolerance Skin Skin: Yes rash; No changing moles Musc Musculoskeletal: Yes back problems and gout; No arthritis, rheumatoid arthritis or joint pain Cardio Cardiovascular: Yes murmur and high blood pressure; No pacemaker, heart disease, atrial fibrillation, heart attack, heart stent, palpitations, shortness of breat with exertion or chest pain Psych Psychiatric: Yes depression and anxiety; No hearing voices Resp Respiratory: Yes shortness of breath, Yes sleep apnea, No cough, Yes COPD, No asthma, No emphysema and No wheezing Gastro Gastrointestinal: No abdominal pain, No nausea or vomiting, No diarrhea, No constipation, No blood in stool, No acid reflux, No hemorrhoids, No ulcers, No gallbladder problem and No black,tarry stools Erik Hematologic: No blood thinners, Yes blood disorders, Yes bleeding, Yes anemia and Yes blood clots Neuro Neurologic: Yes numbness, Yes tingling and No weakness Exam Const General: cooperative, healthy appearing, comfortable and no acute distress [facility] Head: normal to inspection Eyes General: appearance normal, both eyes and all related structures Neck Neck: normal visual inspection Neck mass: No Resp Effort & Inspection: normal respiratory effort Auscultation: clear to auscultation bilaterally Cardio Rate: regular rate Rhythm: regular rhythm GI Inspection: normal to inspection and obesity Auscultation: normal bowel sounds Other: Right lower abdomen- noted healing burn coty. She has been placing ointment over the area and keeping it covered. Appears to be healing well. No erythema noted. Musc Cervical Spine: normal cervical lordosis Thoracic/Lumbar Spine: thoracic and lumbar spine normal to inspection Skin General: no rashes or lesions noted Trauma: abrasion (right lower quadrant described above) Neuro General: no focal motor deficits and CN's II-XI intact bilaterally Extrem General: normal to inspection Psych Appearance: grossly normal Affect: normal affect COVID (Procedure Consent) Procedure Criteria Procedure Criteria: Yes Elective The surgeon/proceduralist and patient have discussed in detail the risk of exposure to and/or potential harm posed by the COVID-19 virus with having a surgery/procedure at this time versus the risk of delaying the surgery/procedure. It is not possible to know either the risk of delaying the surgery or procedure or chance of getting an infection with perfect accuracy, but a joint decision was made between the patient and the surgeon/proceduralist to proceed at this time with the scheduled surgery/procedure as indicated on the consent form. Assessment and Plan Assessment and Plan (1) Chronic renal failure, stage 4 (severe): Status: Chronic Plan - Laurence DENNY PA-C: Dr. Hernández will plan to perform a stage II transposition left upper extremity basilic vein to brachial artery arteriovenous dialysis fistula creation. Procedure details, risks and benefits have been explained. Patient has had the opportunity to ask and have questions answered. Patient verbally understands and agrees with the plan. She may continue daily aspirin. Patient to continue to place ointment over top of burn and keep covered. She is allergic to sulfa and would not tolerate Silvadene I have reviewed the patient's history and physical as noted above and concur with the findings. Plan to proceed with stage II transposition left upper extremity basilic vein to brachial artery AV fistula creation. Rosalio Hernández M.D., F.A.C.S.
--- NOTE | 2020-08-03 10:59 | EX.PCM.DISCH ---
Discharge Instructions Procedure Fistula Diet Discharge Diet: Renal Diet Activity Discharge Activity: May Not Drive (for 2-3 days or while taking narcotic pain medications.), May Shower and May Take a Tub Bath (in 5 days.) Lifting Restrictions: 5 pounds Keep extremity elevated above heart level: - (Keep arm elevated above the heart level for 3 days.) Dressing / Incision Call your doctor if your incision/area has: Continuous Slow Oozing, Sudden Increased Bleeding (apply pressure and call your doctor.), Increased Pain/ Swelling, Increased Redness and Foul Smelling Discharge Call your doctor if you observe: Fever of 101 or Higher Suture Line Care: Avoid Pulling/Pushing and Avoid Pinching/Bending Cleanse incision/area with: Keep Dressing Clean & Dry Additional Dressing/Incision Instructions:: Change or remove dressing in one day. May protect with a gauze bandaid. Follow Up Care Test Results: test results from this visit will be discussed in further detail at your follow-up appointment, if applicable. Please schedule office follow-up in approximately 7 to 10 days. Please call [phone] for appointment Discharge Plan Admission Primary Reason for Your Visit: Creation of hemodialysis fistula Attending Provider: Rosalio Hernández Primary Care Provider: Velia Archuleta Consulting Providers: Barrett Strickland Discharge Orders/Prescriptions Prescriptions: New hydrocodone-acetaminophen 5-325 mg tablet 1 tab PO Q8H PRN (Reason: pain) 2 Days Qty: 6 RF: 0 Continued hydroxyzine HCl 25 mg tablet 25 mg PO BID PRN (Reason: Itching) RF: 0 Retacrit 40,000 unit/mL solution 20,000 unit SC .QOWEEK RF: 0 ascorbic acid (vitamin C) 500 MG tablet,chewable 1,000 mg PO DAILY RF: 0 cholecalciferol (vitamin D3) 1,000 UNIT tablet 1,000 unit PO BID RF: 0 levothyroxine 25 mcg tablet 88 mcg PO DAILY RF: 0 atorvastatin 10 MG tablet 10 mg PO QHS RF: 0 insulin aspart U-100 [Novolog Flexpen U-100 Insulin] 100 UNITS/ML insulin pen 14 units SC TIDCM RF: 0 Lantus Solostar U-100 Insulin 100 UNIT/ML insulin pen 40 unit SQ BID RF: 0 sertraline 50 MG tablet 50 mg PO DAILY Qty: 1 RF: 0 ropinirole 1 mg tablet 1 mg PO .QAM RF: 0 trazodone 150 MG tablet 200 mg PO QHS RF: 0 tacrolimus 1 MG capsule 0.5 mg PO BID RF: 0 vitamin B complex 1 EACH tablet 1 tablet PO DAILY RF: 0 torsemide 20 mg tablet 60 mg PO DAILY RF: 0 carvedilol 25 MG tablet 25 mg PO BID RF: 0 albuterol sulfate 1 PUFF inhaler 2 puff IH Q4H PRN PRN (Reason: Sob &/Or Wheezing) RF: 0 metolazone 5 MG tablet 5 mg PO QODAY RF: 0 sevelamer carbonate 800 MG tablet 800 mg PO TID RF: 0 ropinirole 2 MG tablet extended release 24 hr 2 mg PO QHS RF: 0 aspirin 81 MG tablet 81 mg PO DAILY@0800 RF: 0 pantoprazole 40 MG tablet,delayed release (DR/EC) 40 mg PO PRN PRN (Reason: GERD) RF: 0 Referrals / Follow Up: Velia Archuleta MD [Primary Care Provider] -
[2020-08-03] MEDS: Lidocaine 1% (30 ml sdv) 30 ML Vial (11:28)
[2020-08-03] MEDS: Bupivacaine Mpf 0.5% 30 ML VIAL (11:28)
[2020-08-03] MEDS: Heparin Injection (Vial) 5,000 UNIT/ML VIAL 5000 UNIT (11:29)
--- NOTE | 2020-08-03 13:24 | OP.PCM_ITS ---
Problems Associated Problem List Diagnoses (1) Chronic renal failure, stage 4 (severe): Report of Operation Date of Procedure: 08/03/20 Pre-Operative Diagnosis: Stage IV chronic renal insufficiency in need of arteriovenous hemodialysis access Post-Operative Diagnosis: Same Surgery/Procedure Performed:: Stage II transposition left upper arm basilic vein to brachial artery arteriovenous hemodialysis fistula creation Description of Surgical Findings:: Timeout and informed consent was obtained. 65-year-old female was taken down from place upon the table. Clindamycin 900 mg of intravenously. She underwent general anesthesia. The left upper extremity was sterilely prepped and draped. 1% lidocaine mixed 50-50 with 0.5% Marcaine was used as a local anesthetic. Throughout the procedure approximately 50 cc was used. Ultrasound mapping of the vein course was performed in the left upper arm. Local was instilled. A longitudinal incision was made directly over the basilic vein. It had matured nicely from its stage I creation. Tedious sharp and blunt dissection was used to dissect the vein free. Side branches were secured with a combination of 3-0 Vicryl ligatures and hemoclips. The vein was completely dissected free to the shoulder area. It was then measured and a new curvilinear area was selected more on the anterior aspect of the left upper arm. A curved 6 mm tunnel was placed. The vein was ligated distally with 3-0 Vicryl suture ligature. It was then tunneled after had a been marked to make sure there was no kinking. Having identified the location I then performed sharp and blunt dissection to identify the brachial artery and circumferential control was obtained. The patient received 9000 units of heparin IV. After adequate circulating time peripheral vascular clamps were placed on the brachial artery. A 11 blade was used to make an arteriotomy which extended with Ibarra scissors. A end-to-side venous to arterial anastomosis was created with a running 7-0 Prolene. Prior to completion was good antegrade and retrograde flow. The anastomosis was completed. There was a good pulse thrill and bruit within the fistula. There was still a 2+ left radial pulse. The left hand appear to be warm and viable. The fistula appeared to have a good positional lie. A sheet of Surgicel was placed in the dissected area of the left upper arm. Hemostasis was now assured. The subdermal tissues approximated with interrupted 3-0 Vicryl. Skin edges approximated a running septic or 4-0 Monocryl. Steri- Strips Telfa soft roll applied. The hand was wrapped with soft roll and Aryan wrap from the hand up to the shoulder. Sponge and instrument and needle counts were reported the surgeon to be correct. Drains none. Blood loss 50 cc. Specimens none. The patient was taken to the recovery area in satisfactory condition without apparent complication Rosalio Hernández M.D., F.A.C.S. Type of Anesthesia: General and Local Anesthesiologist: Lencho Floyd
[2020-08-03 13:47] VITALS: BP 137/70; BP 139/56; PULSE 77; RESP 16; TEMP 36.2; O2SAT 95
[2020-08-03 14:00] VITALS: BP 128/57; BP 137/70; PULSE 77; RESP 16; O2SAT 96
[2020-08-03 14:05] LABS: Bedside Glucose 126 mg/dL (70-110)
[2020-08-03 14:15] VITALS: BP 130/52; BP 137/70; PULSE 77; RESP 16; O2SAT 98
[2020-08-03 14:16] VITALS: BP 125/56; BP 137/70; PULSE 77; RESP 16; TEMP 36.2; O2SAT 97
[2020-08-03 14:57] VITALS: BP 136/54; BP 137/70; PULSE 72; RESP 18; TEMP 36.2; O2SAT 98
== END 2020-08-03 15:07 | disposition home or self-care (01) ==
LOC: SDC 08:56 → AC 08:58
PROVIDERS: PCP Internal Medicine; Referring Provider Surgery; Visit Provider Surgery
PROC: (CPT 36821; principal; 2020-08-03 10:45)
DX: I12.9 Hypertensive chronic kidney disease with stage 1 through stage 4 chronic kidney disease, or unspecified chronic kidney disease (principal); E11.22 Type 2 diabetes mellitus with diabetic chronic kidney disease; N18.4 Chronic kidney disease, stage 4 (severe); D63.1 Anemia in chronic kidney disease; R23.3 Spontaneous ecchymoses; J44.9 Chronic obstructive pulmonary disease, unspecified; K21.9 Gastro-esophageal reflux disease without esophagitis; K74.60 Unspecified cirrhosis of liver; Z94.4 Liver transplant status; Z79.4 Long term (current) use of insulin; Z79.899 Other long term (current) drug therapy
CPT/HCPCS: 36821; 36415; 80048; 82570; 82962; 84156; 85027; J7030; J7120; J2405

== ENCOUNTER 2020-08-06 09:07 | Outpatient (CLI) | payer MEDICARE, SELFPAY ==
[2020-08-06 10:40] VITALS: BP 154/62; PULSE 86; RESP 18; TEMP 35.7; O2SAT 100
[2020-08-06 10:55] VITALS: BP 148/57; PULSE 86; RESP 18; TEMP 35.9; O2SAT 98
[2020-08-06 11:55] VITALS: BP 155/59; PULSE 87; RESP 18; TEMP 35.9; O2SAT 100
== END 2020-08-06 13:20 ==
LOC: MEDOUTP 09:07 → PCU 09:09
PROVIDERS: PCP Internal Medicine; Referring Provider Internal Medicine Hematology & Oncology; Visit Provider Internal Medicine Hematology & Oncology
DX: N18.4 Chronic kidney disease, stage 4 (severe) (principal); D69.59 Other secondary thrombocytopenia
CPT/HCPCS: 36430; 86850; 86900; 86901; 86920; 86922; J7040; P9016

== ENCOUNTER → 2020-10-10 13:44 | Outpatient (CLI) | payer MEDICARE, SELFPAY ==
[2020-10-10 15:05] LABS: Hepatitis B Surface Antibody Non-Reactive
[2020-10-13 14:34] LABS: Hepatitis B Surface Antigen Non-Reactive (Nonreactive)
== END ==
PROVIDERS: PCP Internal Medicine; Referring Provider Internal Medicine Nephrology; Visit Provider Internal Medicine Nephrology
DX: N18.4 Chronic kidney disease, stage 4 (severe) (principal)
CPT/HCPCS: 36415; 86706; 87340

== ENCOUNTER 2020-12-08 20:25 | Emergency (ER) | payer MEDICARE, SELFPAY ==
[2020-12-08 20:26] VITALS: BP 128/52; PULSE 76; RESP 15; TEMP 36.7; O2SAT 100; BMI 41.5
--- NOTE | 2020-12-08 20:42 | RAD_ITS ---
STUDY: X-RAY - RIGHT ELBOW REASON FOR EXAM: Female, 65 years old. Injury/Pain TECHNIQUE: 3 view(s) of the elbow. COMPARISON: None. FINDINGS: Normal visualized humerus, radius and ulna. Normal radiocapitellar and ulnotrochlear articulations. The soft tissue structures are unremarkable. There is no demonstrated fracture. RAD/Elbow min 3 Views IMPRESSION: Normal x-ray examination of the elbow. Electronically Signed: Jose Plata MD at 21:17 EDT , Service support ,
[2020-12-08] MEDS: Morphine 4 MG/ML Syringe IM (21:00)
--- NOTE | 2020-12-08 21:17 | EX.ED.UPPERE ---
HPI History of Present Illness HPI Narrative: Patient presents with right elbow pain that has been getting worse for the past 2 days. Patient states it is gradually getting worse. Patient describes it as sharp and stabbing. Patient states it is been constant. Patient states it is worse with movement. Patient states nothing seems to be helping with the pain. Patient denies any paresthesias or weakness. Patient denies any trauma or injury. Patient is on dialysis but states her dialysis fistula is in her left arm. Patient states she has been taking [place] at home with no improvement. Chief Complaint: Upper Extremity Injury Informant: patient Onset/Context/Timing Onset: Days (2) Context: Gradual Onset Timing: Continuous Quality of Pain: Sharp and Stabbing Location: Right elbow Current Severity: Severe Maximum Severity: Severe Worsened by: Movement Relieved by: Rest Associated Symptoms Associated Symptoms: Negative for Parasthesia, Weakness and Loss of Funtion PFSH PFS Medical History Anemia Back pain Blister Cancer Cardiology follow-up encounter Celiac disease Chronic kidney disease, stage 3 Chronic renal failure, stage 4 (severe) Chronic renal failure, stage 5 COPD (chronic obstructive pulmonary disease) CPAP (continuous positive airway pressure) dependence Diabetes DVT (deep venous thrombosis) Gastric reflux GERD (gastroesophageal reflux disease) History of echocardiogram (~01/22/20) History of edema History of irregular heartbeat History of renal disease History of stress test (~12/07/19) History of uterine cancer Hx of Krueger's palsy Hypertension Infection involving suture with abscess Insulin dependent diabetes mellitus LIVER [employer]PLANT Sleep apnea Wears dentures Wears glasses Home Medications ascorbic acid (vitamin C) 1,000 mg PO DAILY 02/20/15 [History Last Taken 09/09/19] cholecalciferol (vitamin D3) 1,000 unit PO BID 02/20/15 [History Last Taken 09/09/19] atorvastatin 10 mg PO QHS 10/19/16 [History Last Taken 09/09/19] Lantus Solostar U-100 Insulin 40 unit SQ BID 05/29/18 [History Last Taken 09/09/19] insulin aspart U-100 [Novolog Flexpen U-100 Insulin] 14 units SC TIDCM 05/29/18 [History Last Taken 09/09/19] sertraline 50 mg PO DAILY #1 10/13/18 [Rx Last Taken 09/09/19] tacrolimus 0.5 mg PO BID 09/10/19 [History Last Taken 08/03/20] trazodone 200 mg PO QHS 09/10/19 [History Last Taken 09/09/19] vitamin B complex 1 tablet PO DAILY 09/10/19 [History Last Taken 09/09/19] albuterol sulfate 2 puff IH Q4H PRN PRN 02/25/20 [History Last Taken Unknown] carvedilol 25 mg PO BID 02/25/20 [History Last Taken 08/03/20] epoetin marco-epbx 40,000 unit/mL injection solution 20,000 unit SC .QOWEEK 05/23/20 [History Last Taken Unknown] hydroxyzine HCl 25 mg tablet 25 mg PO BID PRN 05/23/20 [History Last Taken Unknown] levothyroxine 25 mcg tablet 88 mcg PO DAILY tablet 05/23/20 [History Last Taken 06/16/20] ropinirole 1 mg tablet 1 mg PO .QAM tablet 05/23/20 [History Last Taken 06/16/20] torsemide 20 mg tablet 60 mg PO DAILY tablet 05/23/20 [History Last Taken Unknown] aspirin 81 mg PO DAILY@0800 06/10/20 [History Last Taken Unknown] metolazone 5 mg PO QODAY 06/10/20 [History Last Taken Unknown] ropinirole 2 mg PO QHS 06/10/20 [History Last Taken Unknown] sevelamer carbonate 800 mg PO TID 06/10/20 [History Last Taken Unknown] pantoprazole 40 mg PO PRN PRN 07/27/20 [History Last Taken 08/03/20] hydrocodone-acetaminophen 1 tab PO Q8H PRN 2 Days #6 tab 08/03/20 [Rx Last Taken Unknown] oxycodone-acetaminophen 1 tab PO Q6H PRN PRN 3 Days #12 tablet 12/08/20 [Rx Last Taken Unknown] Allergy/AdvReac Type Severity Reaction Status Date / Time amlodipine [From Norvasc] Allergy Severe Hives Verified 12/08/20 20:26 ampicillin sodium Allergy Severe Hives Verified 12/08/20 20:26 [From Unasyn] buspirone HCl [From BuSpar] Allergy Severe Hives Verified 12/08/20 20:26 cefadroxil [From Duricef] Allergy Severe Hives Verified 12/08/20 20:26 lisinopril Allergy Severe Swelling Verified 12/08/20 20:26 naproxen Allergy Severe Hives Verified 12/08/20 20:26 niacin Allergy Severe Hives Verified 12/08/20 20:26 [From Niaspan Extended-Release] sulbactam sodium Allergy Severe Hives Verified 12/08/20 20:26 [From Unasyn] Sulfa (Sulfonamide Allergy Severe Hives Verified 12/08/20 20:26 Antibiotics) cephalexin [From Keflex] Allergy Hives Verified 12/08/20 20:26 omeprazole AdvReac Severe Other Verified 12/08/20 20:26 losartan AdvReac Swelling Verified 12/08/20 20:26 Family History Mother Diabetes Anemia Father Hypertension LUNG/RESPIRATORY DISEASE Surgical History History of cholecystectomy History of left knee surgery History of left salpingo-oophorectomy History of radical hysterectomy History of splenectomy History of ventral hernia repair S/P arteriovenous (AV) fistula creation (~06/16/20) Social History Smoking Status: Never smoker substance use type: does not use ROS ROS ED Constitutional Constitutional ED: Denies chills or fever(s) Eyes Eyes: Denies blurry vision or change in vision ENT ENT ED: Denies rhinorrhea or sore throat Cardiovascular Cardiovascular: Denies chest pain or palpitations Respiratory/Chest Respiratory/Chest: Denies cough or dyspnea Gastrointestinal Gastrointestinal: Denies nausea or vomiting Genitourinary Genitourinary ED: Denies dysuria or hematuria Musculoskeletal Musculoskeletal: Denies back pain or neck pain Integumentary Denies abscess or rash Neurologic Neurologic: Denies headache(s) or weakness Allergic/Immunologic Allergic/Immunologic ED: Denies mouth swelling or urticaria EXAM Physical Exam Const Vital Signs: 12/08/20 20:26 Temperature 98.0 F Temperature Source Temporal Pulse Rate 76 Respiratory Rate 15 Blood Pressure 128/52 H Blood Pressure Mean 77 Pulse Ox 100 Oxygen Delivery Method Room Air Positive well nourished and well developed General Appearance ED: well developed HEENT Reports moist mucous membranes Neck full ROM and supple Extremity Extremity Narrative: There is tenderness over the right elbow. Range of motion was limited in all motions of the right elbow secondary to pain. There is no effusion. There is no edema or ecchymosis. There is no deformity noted. Radial pulses are equal bilaterally. Sensation was intact to light touch in the radial, median, and ulnar areas. Strength is 5/5 in the radial, median, and ulnar areas. Neuro oriented x3, CN's II-XII intact bilaterally, moves all extremities, no focal motor deficits and no sensory deficits noted Sensorium / Orientation: alert MDM MDM MDM Narrative Medical decision making narrative: Patient was given an injection of morphine here. X-rays of the right elbow were obtained. There are 3 views. On my interpretation, there is no acute fracture or dislocation. There is no joint effusion or fat pad sign. There is no soft tissue swelling. Radiologist also interpreted the x-rays and agrees. CBC was within normal limits. Sed rate was normal. CRP was slightly elevated at 44.4. I do not feel this is a septic joint. Patient was given a prescription for Percocet. Patient was instructed to ice and elevate the right elbow. Patient was instructed to follow-up with her primary care physician in 5 to 7 days. Patient understood and was agreeable with the plan. All questions were answered. Discharge Plan Triage Chief Complaint: Upper Extremity Injury ED Provider: Carlton Greene Dx/Rx/DC Orders Clinical Impression: Pain in right elbow Instructions: ED Pain, Acute, Uncertain Cause Prescriptions: New oxycodone-acetaminophen [oxycodone-acetaminophen] 1 TABLET tablet 1 tab PO Q6H PRN PRN (Reason: Pain) 3 Days Qty: 12 RF: 0 No Action hydroxyzine HCl 25 mg tablet 25 mg PO BID PRN (Reason: Itching) RF: 0 Retacrit 40,000 unit/mL solution 20,000 unit SC .QOWEEK RF: 0 ascorbic acid (vitamin C) 500 MG tablet,chewable 1,000 mg PO DAILY RF: 0 cholecalciferol (vitamin D3) 1,000 UNIT tablet 1,000 unit PO BID RF: 0 levothyroxine 25 mcg tablet 88 mcg PO DAILY RF: 0 atorvastatin 10 MG tablet 10 mg PO QHS RF: 0 insulin aspart U-100 [Novolog Flexpen U-100 Insulin] 100 UNITS/ML insulin pen 14 units SC TIDCM RF: 0 Lantus Solostar U-100 Insulin 100 UNIT/ML insulin pen 40 unit SQ BID RF: 0 sertraline 50 MG tablet 50 mg PO DAILY Qty: 1 RF: 0 ropinirole 1 mg tablet 1 mg PO .QAM RF: 0 trazodone 150 MG tablet 200 mg PO QHS RF: 0 tacrolimus 1 MG capsule 0.5 mg PO BID RF: 0 vitamin B complex 1 EACH tablet 1 tablet PO DAILY RF: 0 torsemide 20 mg tablet 60 mg PO DAILY RF: 0 carvedilol 25 MG tablet 25 mg PO BID RF: 0 albuterol sulfate 1 PUFF inhaler 2 puff IH Q4H PRN PRN (Reason: Sob &/Or Wheezing) RF: 0 metolazone 5 MG tablet 5 mg PO QODAY RF: 0 sevelamer carbonate 800 MG tablet 800 mg PO TID RF: 0 ropinirole 2 MG tablet extended release 24 hr 2 mg PO QHS RF: 0 aspirin 81 MG tablet 81 mg PO DAILY@0800 RF: 0 pantoprazole 40 MG tablet,delayed release (DR/EC) 40 mg PO PRN PRN (Reason: GERD) RF: 0 hydrocodone-acetaminophen 5-325 mg tablet 1 tab PO Q8H PRN (Reason: pain) 2 Days Qty: 6 RF: 0 Primary Care Provider: Velia Archuleta Referrals: Velia Archuleta MD [Primary Care Provider] - Disposition Disposition: Home, Self Care
[2020-12-08 21:19] LABS: Absolute Lymphocyte Count 0.55 X10^3/uL (0.83-4.51); Absolute Neutrophil Count 2.7 X10^3/uL (2.0-7.7); Basophil# 0.01 X10^3/uL; Basophil% 0.3 % (0-1); Eosinophils% 2.7 % (0-5); Hematocrit 26.9 % (37-47); Hemoglobin 8.5 g/dL (12.0-15.0); Lymphocyte # 0.55 X10^3/ul (0.83-4.51); Lymphocyte % 15.1 % (19-41); Mean Corp Hgb Conc 31.6 g/dL (32-36); Mean Corpuscular Hgb 31.7 pg (27.0-32.0); Mean Corpuscular Volume 100.4 fL (81-99); Mean Platelet Vol. 11.1 fl (6.2-12.0); Monocyte# 0.22 X10^3/uL; NRBC Flagged by Analyzer 0 % (0-5); Neutrophil # 2.66 X10^3/uL (2.7-7.7); Neutrophil % 73.2 % (47-70); POSITIVE COUNT YES; POSITIVE DIFFERENTIAL YES; Platelet Count 73 K/mm3 (150-450); RBC Distribution Width CV 17.2 % (11.6-14.6); RBC Distribution Width SD 63.3 fl (35.1-43.9); Red Blood Count 2.68 M/mm3 (4.2-5.4); White Blood Count 3.6 K/mm3 (4.4-11.0)
[2020-12-08 21:21] LABS: Differential Indicated SCAN CRITERIA MET
[2020-12-08 21:22] LABS: Erythrocyte Sedimentation Rate 13 mm/hr (0-30)
[2020-12-08 21:47] LABS: Anisocytosis 1+; Hypochromasia RARE; Macrocytosis 1+; Ovalocyte RARE; Platelet Estimate MOD DEC (ADEQ); Red Cell Morphology N CHROM NORMAL (NORM C&C)
[2020-12-09 14:33] LABS: Pathologist Review Reviewed
== END 2020-12-08 23:06 | disposition home or self-care (01) ==
PROVIDERS: Emergency Provider Emergency Medicine; PCP Internal Medicine
DX: M25.521 Pain in right elbow (principal); I12.0 Hypertensive chronic kidney disease with stage 5 chronic kidney disease or end stage renal disease; E11.22 Type 2 diabetes mellitus with diabetic chronic kidney disease; N18.5 Chronic kidney disease, stage 5; D63.1 Anemia in chronic kidney disease; J44.9 Chronic obstructive pulmonary disease, unspecified; Z94.4 Liver transplant status; Z99.2 Dependence on renal dialysis; Z79.4 Long term (current) use of insulin; Z79.82 Long term (current) use of aspirin; Z79.899 Other long term (current) drug therapy
CPT/HCPCS: 73080; 85025; 85652; 86140; 96372; 99282

== ENCOUNTER 2021-04-28 05:32 | Inpatient (IN) | payer MEDICARE, MEDICAID, SELFPAY ==
[2021-04-28] VITALS (17 sets, daily range): BP systolic 99–171; BP diastolic 48–82; PULSE 77–100; RESP 12–20; TEMP 36.3–37.1; O2SAT 97–100; BMI 43.4; BMI 41.1
--- NOTE | 2021-04-28 06:03 | CT_ITS ---
STUDY: CT ABDOMEN AND PELVIS WITHOUT CONTRAST REASON FOR EXAM: Female, 65 years old. GI bleed RADIATION DOSAGE (If Supplied By Facility): CTDIvol = ( 21.27 ) mGy, DLP = ( 1158.63 ) mGycm TECHNIQUE: Transaxial images were obtained from the dome of the diaphragm to the symphysis pubis without oral contrast, and without intravenous contrast. Sagittal and coronal images were reconstructed. Individualized dose optimization techniques were used for this CT. COMPARISON: CT abdomen pelvis from 10/29/2018 FINDINGS: The visualized lung bases demonstrate likely small focus of scarring or atelectasis within the right lower lobe medially. The visualized portions of the heart demonstrate a trace pericardial effusion. There is scattered coronary artery calcifications. Normal liver. There is non-visualization of the gallbladder, which may be secondary to either contraction or a prior cholecystectomy. There is moderate splenomegaly. Normal pancreas. Normal bilateral adrenal glands. Normal right kidney. Normal left kidney. No ureteral calculus or hydronephrosis. Normal visualized stomach. Normal small intestine. Normal colon. The appendix is visualized and appears normal. No bowel wall abnormalities visualized. Limited evaluation for GI hemorrhage due to lack of IV contrast. No bowel obstruction. There is diffuse atherosclerotic calcification of the abdominal aorta, without a demonstrated aneurysm. Normal inferior vena cava. Normal retroperitoneum. Normal urinary bladder. There is a stable left-sided ventral abdominal wall hernia containing mesenteric fat and vessels. There are diffuse degenerative changes of the visualized lumbar spine. Schmorl''s node formation within the superior endplate of L5. There are degenerative changes of both hip joints. CT/Abdomen/Pelvis without Cont IMPRESSION: Negative unenhanced CT of the abdomen and pelvis for acute abnormality. Electronically Signed: Kiko Villar MD at 6:41 EST ,
[2021-04-28 06:15] LABS: Absolute Lymphocyte Count 0.33 X10^3/uL (0.83-4.51); Absolute Neutrophil Count 1.6 X10^3/uL (2.0-7.7); Basophil# 0.01 X10^3/uL; Basophil% 0.4 % (0-1); Differential Indicated SCAN CRITERIA MET; Eosinophils% 4.4 % (0-5); Hematocrit 30.1 % (37-47); Hemoglobin 9.5 g/dL (12.0-15.0); Lymphocyte # 0.33 X10^3/ul (0.83-4.51); Lymphocyte % 14.4 % (19-41); Mean Corp Hgb Conc 31.6 g/dL (32-36); Mean Corpuscular Hgb 31.6 pg (27.0-32.0); Mean Platelet Vol. 10.9 fl (6.2-12.0); Monocyte% 8.7 % (0-10); NRBC Flagged by Analyzer 0 % (0-5); Neutrophil # 1.62 X10^3/uL (2.7-7.7); Neutrophil % 70.8 % (47-70); POSITIVE COUNT YES; POSITIVE DIFFERENTIAL YES; POSITIVE MORPHOLOGY YES; Platelet Count 72 K/mm3 (150-450); RBC Distribution Width CV 18.4 % (11.6-14.6); RBC Distribution Width SD 68.4 fl (35.1-43.9); Red Blood Count 3.01 M/mm3 (4.2-5.4); White Blood Count 2.3 K/mm3 (4.4-11.0)
[2021-04-28 06:18] LABS: Prothrombin Time (Protime)PT. 12.8 SECONDS (11.7-14.9)
[2021-04-28 06:19] LABS: Partial Thromboplast Time 28.1 Seconds (24.1-36.2)
[2021-04-28 06:26] LABS: Anisocytosis 1+; Macrocytosis 1+
[2021-04-28 06:31] LABS: Anion Gap 8 (5-15); BUN 27 mg/dL (7-18); BUN/Creat Ratio 4.9 RATIO (10-20); Calcium,Total 9.2 mg/dL (8.5-10.1); Chloride 96 mmol/L (98-107); Creatinine, Serum 5.52 mg/dL (0.55-1.02); EST Glomerular Filtration Rate 8 mL/min (>60); Est Glom Filt Rate - Afr Amer 10 mL/min (>60); Estimated Creatinine Clearance 9.39 ml/min; Glucose 299 mg/dL (74-106); Potassium 4.3 mmol/L (3.5-5.1); Sodium Level 136 mmol/L (136-145)
--- NOTE | 2021-04-28 06:42 | EDS_ITS ---
HPI History of Present Illness Chief Complaint: GI Bleed Narrative Narrative: Patient is a 65-year-old female who has chronic renal failure and is on dialysis. She states that she was recently in [facility] and had three stents placed and was started on Plavix. She states that she was doing well at home and got up this morning because she felt like she had to use the bathroom. She states she was walking to the bathroom and there was a gush. She states she took a few more steps and there was another gush. She states she made it to the bathroom and then when she turned on the lights she noticed there was nothing but blood. She denies any abdominal pain fevers or chills. S he states that her only blood thinner is the Plavix. She states she did not have chest discomfort palpitations or syncope. However because of the sudden onset of bleeding per rectum presents to the hospital for evaluation [facility] Medical History Anemia Back pain Blister Cancer Cardiology follow-up encounter Celiac disease Chronic kidney disease, stage 3 Chronic renal failure, stage 4 (severe) Chronic renal failure, stage 5 COPD (chronic obstructive pulmonary disease) CPAP (continuous positive airway pressure) dependence Diabetes DVT (deep venous thrombosis) Gastric reflux GERD (gastroesophageal reflux disease) History of echocardiogram (~01/22/20) History of edema History of irregular heartbeat History of renal disease History of stress test (~12/07/19) History of uterine cancer Hx of Krueger's palsy Hypertension Infection involving suture with abscess Insulin dependent diabetes mellitus L[employer]ANT Sleep apnea Wears dentures Wears glasses Home Medications ascorbic acid (vitamin C) 1,000 mg PO DAILY 02/20/15 [History Last Taken 09/09/19] cholecalciferol (vitamin D3) 1,000 unit PO BID 02/20/15 [History Last Taken 09/09/19] atorvastatin 10 mg PO QHS 10/19/16 [History Last Taken 09/09/19] Lantus Solostar U-100 Insulin 40 unit SQ BID 05/29/18 [History Last Taken 09/09/19] insulin aspart U-100 [Novolog Flexpen U-100 Insulin] 14 units SC TIDCM 05/29/18 [History Last Taken 09/09/19] sertraline 50 mg PO DAILY #1 10/13/18 [Rx Last Taken 09/09/19] tacrolimus 0.5 mg PO BID 09/10/19 [History Last Taken 08/03/20] trazodone 200 mg PO QHS 09/10/19 [History Last Taken 09/09/19] vitamin B complex 1 tablet PO DAILY 09/10/19 [History Last Taken 09/09/19] albuterol sulfate 2 puff IH Q4H PRN PRN 02/25/20 [History Last Taken Unknown] carvedilol 25 mg PO BID 02/25/20 [History Last Taken 08/03/20] epoetin marco-epbx 40,000 unit/mL injection solution 20,000 unit SC .QOWEEK 05/23/20 [History Last Taken Unknown] hydroxyzine HCl 25 mg tablet 25 mg PO BID PRN 05/23/20 [History Last Taken Unknown] levothyroxine 25 mcg tablet 88 mcg PO DAILY tablet 05/23/20 [History Last Taken 06/16/20] ropinirole 1 mg tablet 1 mg PO .QAM tablet 05/23/20 [History Last Taken 06/16/20] torsemide 20 mg tablet 60 mg PO DAILY tablet 05/23/20 [History Last Taken Unknown] aspirin 81 mg PO DAILY@0800 06/10/20 [History Last Taken Unknown] ropinirole 2 mg PO QHS 06/10/20 [History Last Taken Unknown] sevelamer carbonate 800 mg PO TID 06/10/20 [History Last Taken Unknown] pantoprazole 40 mg PO PRN PRN 07/27/20 [History Last Taken 08/03/20] hydrocodone-acetaminophen 1 tab PO Q8H PRN 2 Days #6 tab 08/03/20 [Rx Last Taken Unknown] oxycodone-acetaminophen 1 tab PO Q6H PRN PRN 3 Days #12 tablet 12/08/20 [Rx Last Taken Unknown] clopidogrel 75 mg PO DAILY 04/28/21 [History Last Taken Unknown] Allergy/AdvReac Type Severity Reaction Status Date / Time amlodipine [From Norvasc] Allergy Severe Hives Verified 04/28/21 05:37 ampicillin sodium Allergy Severe Hives Verified 04/28/21 05:37 [From Unasyn] buspirone HCl [From BuSpar] Allergy Severe Hives Verified 04/28/21 05:37 cefadroxil [From Duricef] Allergy Severe Hives Verified 04/28/21 05:37 lisinopril Allergy Severe Swelling Verified 04/28/21 05:37 naproxen Allergy Severe Hives Verified 04/28/21 05:37 niacin Allergy Severe Hives Verified 04/28/21 05:37 [From Niaspan Extended-Release] sulbactam sodium Allergy Severe Hives Verified 04/28/21 05:37 [From Unasyn] Sulfa (Sulfonamide Allergy Severe Hives Verified 04/28/21 05:37 Antibiotics) cephalexin [From Keflex] Allergy Hives Verified 04/28/21 05:37 omeprazole AdvReac Severe Other Verified 04/28/21 05:37 losartan AdvReac Swelling Verified 04/28/21 05:37 Family History Mother Diabetes Anemia Father Hypertension LUNG/RESPIRATORY DISEASE Surgical History (Updated 04/28/21 @ 05:35 by Mayuri Collins) History of cholecystectomy History of coronary artery stent placement History of left knee surgery History of left salpingo-oophorectomy History of radical hysterectomy History of splenectomy History of ventral hernia repair S/P arteriovenous (AV) fistula creation (~06/16/20) Social History Smoking Status: Never smoker substance use type: does not use ROS ROS ED Constitutional Constitutional ED: Denies chills or fever(s) ENT ENT ED: Denies sore throat Cardiovascular Cardiovascular: Denies chest pain Respiratory/Chest Respiratory/Chest: Denies cough or dyspnea Gastrointestinal Gastrointestinal: Reports melena; Denies abdominal pain, diarrhea, nausea or vomiting Genitourinary Genitourinary ED: Denies dysuria Musculoskeletal Musculoskeletal: Denies myalgias Integumentary Denies rash Neurologic Neurologic: Denies headache(s) Hematologic/Lymphatic Hematologic/Lymphatic: Reports easy bleeding and easy bruising EXAM Physical Exam Const Vital Signs: 04/28/21 05:32 04/28/21 05:42 04/28/21 06:03 Temperature 97.6 F L Temperature Source Temporal Pulse Rate 83 84 Pulse Rate [Lying] 88 Pulse Rate [Sitting] 82 Pulse Rate [Standing] 100 Respiratory Rate 20 H Blood Pressure 171/53 H Blood Pressure [Lying] 149/79 H Blood Pressure [Sitting] 147/56 H Blood Pressure [Standing] 126/58 H Blood Pressure Mean 92 Blood Pressure Mean [Lying] 102 Blood Pressure Mean [Sitting] 86 Blood Pressure Mean [Standing] 80 Pulse Ox 100 Oxygen Delivery Method Room Air 04/28/21 06:36 04/28/21 07:12 Temperature 98.0 F Temperature Source Oral Pulse Rate 80 79 Pulse Rate [Lying] Pulse Rate [Sitting] Pulse Rate [Standing] Respiratory Rate 14 14 Blood Pressure 125/52 H 139/59 H Blood Pressure [Lying] Blood Pressure [Sitting] Blood Pressure [Standing] Blood Pressure Mean 76 85 Blood Pressure Mean [Lying] Blood Pressure Mean [Sitting] Blood Pressure Mean [Standing] Pulse Ox 97 100 Oxygen Delivery Method Room Air Room Air Positive well nourished, well developed and obese General Appearance ED: well developed Nutritional Appearance: obese HEENT Reports moist mucous membranes Eyes PERRL and EOMs intact bilaterally General Eye ED: Yes pale conjunctiva Neck supple Resp normal respiratory effort and clear to auscultation bilaterally Cardio regular rate and regular rhythm GI normal to inspection, nondistended, normoactive bowel sounds, non-tender, non- distended and no masses GI Narrative: No voluntary guarding no rigidity no pulsatile mass Auscultation: normoactive bowel sounds Palpation: soft Narrative: Rectal exam shows nonbleeding nonthrombosed external hemorrhoids. Rectal tone is normal. Stool is maroon in color and Hemoccult positive. Extremity Extremity Narrative: Patient has a fistula in place in the left upper arm with palpable thrill and good bruit Neuro oriented x3 and CN's II-XII intact bilaterally Sensorium / Orientation: alert Motor Exam: strength 5/5 throughout Psych mental status grossly normal Skin Skin Narrative: Skin is pale in color with areas of spontaneous ecchymosis consistent with Plavix use and end-stage renal disease MDM MDM MDM Narrative Medical decision making narrative: Patient presented to the ER afebrile awake and alert with no report of abdominal pain and no persistent blood per rectum. However because of her complaint of GI bleed a rectal exam was performed and thi s did confirm dark red maroon-colored stool. Basic blood work was obtained which did show pancytopenia but chart review reveals this is near patient's baseline. Also her last hemoglobin was 8.5 but today's value is 9.5 indicating no need for an acute blood transfusion. The patient was orthostatic positive however with her diastolic dropping by 20 points with sitting and her systolic dropping another 20 points with standing. The patient did not have continued bleeding while in the ER and she remained hemodynamically stable but with her renal failure and recent initiation of Plavix I did discuss the case with GI. They recommend patient undergo an upper and lower scope because of the new medication and now sudden onset of blood per rectum. I then talked to the hospitalist but they feel that with her recent stent placement and need for Plavix that she would be better suited going back to the facility where they performed the stent placement and seeing that principal statistical scientist. The patient states that she does not want to go back to [facility] and would prefer to have all of her care at this facility. I then informed her that her principal statistical scientist even though he is based in [place] does not have privileges at our hospital. After hearing this the patient states that she would still prefer to stay here but if her principal statistical scientist recommends transfer and she is willing to go that route. After talking with the transfer line they did not have any beds available at their facility and therefore patient will need to be kept at our hospital for continued care. Lab Data Attestation: I reviewed the patient's lab results. Labs: Laboratory Results - last 24 hr 04/28/21 04/28/21 04/28/21 05:40 05:40 05:40 WBC 2.3 L RBC 3.01 L Hgb 9.5 L Hct 30.1 L MCV 100.0 H MCH 31.6 MCHC 31.6 L RDW Std Deviation 68.4 H RDW Coeff of Tami 18.4 H Plt Count 72 L MPV 10.9 Immature Gran % (Auto) 1.300 H Neut % (Auto) 70.8 H Lymph % (Auto) 14.4 L Atkinson % (Auto) 8.7 Eos % (Auto) 4.4 Baso % (Auto) 0.4 Absolute Neuts (auto) 1.6 L Absolute Lymphs (auto) 0.33 L Nucleated RBC % 0 [address] Path Review May foll Anisocytosis 1+ Macrocytosis 1+ PT 12.8 INR 1.0 APTT 28.1 Sodium 136 Potassium 4.3 Chloride 96 L Carbon Dioxide 32.0 Anion Gap 8 BUN 27 H Creatinine 5.52 H Estim Creat Clear Calc 9.39 Est GFR (MDRD) Af Amer 10 L Est GFR (MDRD) Non-Af 8 L BUN/Creatinine Ratio 4.9 L Glucose 299 H Lactic Acid Calcium 9.2 04/28/21 06:10 WBC RBC Hgb Hct MCV MCH MCHC RDW Std Deviation RDW Coeff of Tami Plt Count MPV Immature Gran % (Auto) Neut % (Auto) Lymph % (Auto) Atkinson % (Auto) Eos % (Auto) Baso % (Auto) Absolute Neuts (auto) Absolute Lymphs (auto) Nucleated RBC % Diff Path Review Anisocytosis Macrocytosis PT INR APTT Sodium Potassium Chloride Carbon Dioxide Anion Gap BUN Creatinine Estim Creat Clear Calc Est GFR (MDRD) Af Amer Est GFR (MDRD) Non-Af BUN/Creatinine Ratio Glucose Lactic Acid 1.9 Calcium Radiography Diagnostic Testing: Clinical Impression(s) from Imaging Studies Abdomen/Pelvis CT 04/28/21 06:03 IMPRESSION: Negative unenhanced CT of the abdomen and pelvis for acute abnormality. Electronically Signed: Kiko Villar MD at 6:41 EST , Discharge Plan Dx/Rx/DC Orders Clinical Impression: GI (gastrointestinal bleed), Pancytopenia, Chronic kidney failure Disposition Disposition: Acute Care [facility]
[2021-04-28 06:44] LABS: Lactic Acid 1.9 mmol/L (0.4-1.9)
--- NOTE | 2021-04-28 06:47 | EKG12_ITS ---
Test Reason : Blood Pressure : / mmHG Vent. Rate : 080 BPM Atrial Rate : 080 BPM P-R Int : 212 ms QRS Dur : 136 ms QT Int : 436 ms P-R-T Axes : 048 -41 049 degrees QTc Int : 502 ms Sinus rhythm with 1st degree A-V block Left axis deviation Left bundle branch block Abnormal ECG Confirmed by CHRISTAL FOFANA, ARMANDO ([id number]), writer editor STEPHANIE PHAM ([id number]) on 05/01/2021 12:00:33 PM Referred By: DEENA Confirmed By:ARMANDO SIEGEL MD
--- NOTE | 2021-04-28 08:26 | HP.PCM.HOS_ITS ---
[facility] - General General Date of Admission: 04/28/21 Date of Service: 04/28/21 Chief Complaint: 3 episodes of large dark red rectal bleed in the morning today. Abdominal discomfort HPI Narrative CHRISTINA KUO, is a 65 F with multiple comorbidities with recent diagnosis of coronary artery disease on abnormal stress test status post 3 stents on 04/25/2021 came to ER with 3 episodes of sudden onset of dark red rectal bleed in the morning of 04/28/2021. Patient stated she had large clots with toilet bowl full of dark blood. She also has diffuse mild abdominal discomfort all over without radiation. Mild associated nausea but denies vomiting, hematemesis. She denies anorectal pain. No fever or chills. She has associated dizziness but denies chest pain/acute shortness of breath. Chronic dyspnea on exertion. 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 She was not dialyzed on Saturday therefore dialyzed and supposed to be today. In ED, blood pressure 171/53 but she has orthostatic hypotension, supine blood pressure 149/79, heart rate 88 dropped 126/58, heart rate 100 on standing. Initial H&H 9.5/30, leukopenia. Platelet count 72,000. Lactic acid 1.9. Abdomen/pelvic unenhanced CT abdomen pelvis showed no acute abnormality. Patient is started on Protonix drip after 80 mg bolus. No IV fluid in ED started on Ringer lactate 500 mL bolus and then 75 mill per hour for 1 L. [facility] Medical History Anemia Back pain Blister Cancer Cardiology follow-up encounter Celiac disease Chronic kidney disease, stage 3 Chronic renal failure, stage 4 (severe) Chronic renal failure, stage 5 COPD (chronic obstructive pulmonary disease) CPAP (continuous positive airway pressure) dependence Diabetes DVT (deep venous thrombosis) Gastric reflux GERD (gastroesophageal reflux disease) History of echocardiogram (~01/22/20) History of edema History of irregular heartbeat History of renal disease History of stress test (~12/07/19) History of uterine cancer Hx of Krueger's palsy Hypertension Infection involving suture with abscess Insulin dependent diabetes mellitus LIVER TRANSPLANT Sleep apnea Wears dentures Wears glasses Home Medications ascorbic acid (vitamin C) 1,000 mg PO DAILY 02/20/15 [History Last Taken 09/09/19] cholecalciferol (vitamin D3) 1,000 unit PO BID 02/20/15 [History Last Taken 09/09/19] atorvastatin 10 mg PO QHS 10/19/16 [History Last Taken 09/09/19] Lantus Solostar U-100 Insulin 40 unit SQ BID 05/29/18 [History Last Taken 09/09/19] insulin aspart U-100 [Novolog Flexpen U-100 Insulin] 14 units SC TIDCM 05/29/18 [History Last Taken 09/09/19] sertraline 50 mg PO DAILY #1 10/13/18 [Rx Last Taken 09/09/19] tacrolimus 0.5 mg PO BID 09/10/19 [History Last Taken 08/03/20] trazodone 200 mg PO QHS 09/10/19 [History Last Taken 09/09/19] vitamin B complex 1 tablet PO DAILY 09/10/19 [History Last Taken 09/09/19] albuterol sulfate 2 puff IH Q4H PRN PRN 02/25/20 [History Last Taken Unknown] carvedilol 25 mg PO BID 02/25/20 [History Last Taken 08/03/20] epoetin marco-epbx 40,000 unit/mL injection solution 20,000 unit SC .QOWEEK 05/23/20 [History Last Taken Unknown] hydroxyzine HCl 25 mg tablet 25 mg PO BID PRN 05/23/20 [History Last Taken Unkn own] levothyroxine 25 mcg tablet 88 mcg PO DAILY tablet 05/23/20 [History Last Taken 06/16/20] ropinirole 1 mg tablet 1 mg PO .QAM tablet 05/23/20 [History Last Taken 06/16/20] torsemide 20 mg tablet 60 mg PO DAILY tablet 05/23/20 [History Last Taken Unknown] aspirin 81 mg PO DAILY@0800 06/10/20 [History Last Taken Unknown] ropinirole 2 mg PO QHS 06/10/20 [History Last Taken Unknown] sevelamer carbonate 800 mg PO TID 06/10/20 [History Last Taken Unknown] pantoprazole 40 mg PO PRN PRN 07/27/20 [History Last Taken 08/03/20] hydrocodone-acetaminophen 1 tab PO Q8H PRN 2 Days #6 tab 08/03/20 [Rx Last Taken Unknown] oxycodone-acetaminophen 1 tab PO Q6H PRN PRN 3 Days #12 tablet 12/08/20 [Rx Last Taken Unknown] clopidogrel 75 mg PO DAILY 04/28/21 [History Last Taken Unknown] Allergy/AdvReac Type Severity Reaction Status Date / Time amlodipine [From Norvasc] Allergy Severe Hives Verified 04/28/21 05:37 ampicillin sodium Allergy Severe Hives Verified 04/28/21 05:37 [From Unasyn] buspirone HCl [From BuSpar] Allergy Severe Hives Verified 04/28/21 05:37 cefadroxil [From Duricef] Allergy Severe Hives Verified 04/28/21 05:37 lisinopril Allergy Severe Swelling Verified 04/28/21 05:37 naproxen Allergy Severe Hives Verified 04/28/21 05:37 niacin Allergy Severe Hives Verified 04/28/21 05:37 [From Niaspan Extended-Release] sulbactam sodium Allergy Severe Hives Verified 04/28/21 05:37 [From Unasyn] Sulfa (Sulfonamide Allergy Severe Hives Verified 04/28/21 05:37 Antibiotics) cephalexin [From Keflex] Allergy Hives Verified 04/28/21 05:37 omeprazole AdvReac Severe Other Verified 04/28/21 05:37 losartan AdvReac Swelling Verified 04/28/21 05:37 Family History Mother Diabetes Anemia Father Hypertension LUNG/RESPIRATORY DISEASE Surgical History History of cholecystectomy History of coronary artery stent placement History of left knee surgery History of left salpingo-oophorectomy History of radical hysterectomy History of splenectomy History of ventral hernia repair S/P arteriovenous (AV) fistula creation (~06/16/20) Social History Smoking Status: Never smoker substance use type: does not use ROS ROS Narrative Constitutional: Reports fatigue and weakness. No fever. HEENT: Reports systems reviewed and no addt'l complaints, except as documented Respiratory/Chest: Denies chest pain, new shortness of breath at rest. Chronic shortness of breath on exertion Gastrointestinal: As mentioned in HPI Genitourinary: On hemodialysis. Small amount of urine output. Denies burning urination or new urinary tract symptoms Musculoskeletal: Reports joint pain and limited range of motion Neurologic: Denies seizure-like activity skin: History of cellulitis in past with 2 admissions last 02 November 2018 Endocrinology: Diabetes mellitus type 2, hyperglycemia reports systems reviewed and no addt'l complaints, except as documented Hematologic/Lymphatic: Bilateral lower extremity lymphedema. Reports systems reviewed and no addt'l complaints, except as documented Rest 14 ROS are negative except as mentioned in HPI Vital Signs Vital Signs Vital Signs: 04/28/21 05:32 04/28/21 05:42 04/28/21 06:03 Temperature 97.6 F L Temperature Source Temporal Pulse Rate 83 84 Pulse Rate [Lying] 88 Pulse Rate [Sitting] 82 Pulse Rate [Standing] 100 Respiratory Rate 20 H Blood Pressure 171/53 H Blood Pressure [Lying] 149/79 H Blood Pressure [Sitting] 147/56 H Blood Pressure [Standing] 126/58 H Blood Pressure Mean 92 Blood Pressure Mean [Lying] 102 Blood Pressure Mean [Sitting] 86 Blood Pressure Mean [Standing] 80 Pulse Ox 100 Oxygen Delivery Method Room Air 04/28/21 06:36 04/28/21 07:12 Temperature 98.0 F Temperature Source Oral Pulse Rate 80 79 Pulse Rate [Lying] Pulse Rate [Sitting] Pulse Rate [Standing] Respiratory Rate 14 14 Blood Pressure 125/52 H 139/59 H Blood Pressure [Lying] Blood Pressure [Sitting] Blood Pressure [Standing] Blood Pressure Mean 76 85 Blood Pressure Mean [Lying] Blood Pressure Mean [Sitting] Blood Pressure Mean [Standing] Pulse Ox 97 100 Oxygen Delivery Method Room Air Room Air Weight Weight: 260 lb 12.909 oz Body Mass Index (BMI) 43.4 Physical Exam Narrative General: Alert, Oriented x3, Cooperative. Morbid obesity BMI 43.4 kg/m?. HEENT: Atraumatic, PERRLA, EOMI, Normocephalic Oral: Oral mucosa dry. No Gingival or Mucosal Lesions/ Ulcerations Neck: Supple, No JVD, Negative Carotid Bruits Lungs: Air entry diminished in bilateral lung bases. No crepitation/rhonchi Cardiovascular: Regular rate, Regular Rhythm, Normal S1, Normal S2, systolic murmur over LLSB. Abdomen: Bowel Sounds Present, Soft,, Non-Distended. Mild nonspecific tenderness diffuse. Abdominal scar status post liver transplant. : On hemodialysis. Chronic low urine output. No renal angle tenderness. No suprapubic tenderness. Extremities: Chronic bilateral below-knee edema/lymphedema, venous hypertension. Capillary Refill Less than 3 Seconds Skin: No rashes, No breakdown Musculoskeletal: No Tenderness to Palpation of Joints or Extremities Neurological: Cranial nerves II-XII grossly intact, DTR 2+/4 and Symmetrical, Neuro grossly intact Psych/Mental Status: Normal Affect, Appropriate. Results Lab / Micro Data Result Diagrams: 04/28/21 05:40 04/28/21 05:40 Labs: Laboratory Results - last 24 hr 04/28/21 05:40: WBC 2.3 L, RBC 3.01 L, Hgb 9.5 L, Hct 30.1 L, MCV 100.0 H, MCH 31.6, MCHC 31.6 L, RDW Std Deviation 68.4 H, RDW Coeff of Tami 18.4 H, Plt Count 72 L, MPV 10.9, Immature Gran % (Auto) 1.300 H, Neut % (Auto) 70.8 H, Lymph % (Auto) 14.4 L, Pitkin % (Auto) 8.7, Eos % (Auto) 4.4, Baso % (Auto) 0.4, Absolute Neuts (auto) 1.6 L, Absolute Lymphs (auto) 0.33 L, Nucleated RBC % 0, Diff Path Review May foll, Anisocytosis 1+, Macrocytosis 1+ 04/28/21 05:40: PT 12.8, INR 1.0, APTT 28.1 04/28/21 05:40: Sodium 136, Potassium 4.3, Chloride 96 L, Carbon Dioxide 32.0, Anion Gap 8, BUN 27 H, Creatinine 5.52 H, Estim Creat Clear Calc 9.39, Est GFR (MDRD) Af Amer 10 L, Est GFR (MDRD) Non-Af 8 L, BUN/Creatinine Ratio 4.9 L, Glucose 299 H, Calcium 9.2 04/28/21 06:10: Lactic Acid 1.9 Micro: Microbiology 04/28/21 06:00 Stool Stool Occult Blood (TOMASZ) - Final Occult Blood Positive Radiology Impression Abdomen/Pelvis CT 04/28/21 06:03 IMPRESSION: Negative unenhanced CT of the abdomen and pelvis for acute abnormality. Electronically Signed: Kiko Villar MD at 6:41 EST , Charges/Coding Visit Charges Inpatient E&M: 83066 Init Hosp L3 Procedures Hospitalists Procedures: 51568 Advncd Care Plan 30 Min Assessment & Plan Assessment & Plan (1) GI bleed: Qualifiers: GI bleed type/associated pathology: unspecified gastrointestinal hemorrhage type Qualified Code(s): K92.2 - Gastrointestinal hemorrhage, unspecified Plan: This 64-year-old female with multiple comorbidities including vascular disease status post liver transplant on tacrolimus, ESRD hemodialysis came to ER ED with upper GI bleed. 1. 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 Started on IV fluid resuscitation even though she is a dialysis patient. Ringer lactate 500 mL bolus and then 75/h for 1 L. On IV Protonix drip. GI is consulted. Plan for EGD/colonoscopy as per discretion of cutter inspector. Keep NPO. 2. Recent coronary artery status post 3 stents: There is no record of recent c ardiac cath or type of stent but patient stated her cutting machine tender helper Dr. Vargas said she will need Plavix at least for 6 months. Seems most likely drug-eluting stent. Continue Plavix. Hold baby aspirin, carvedilol, diuretics torsemide as she is orthostatic hypotension with tachycardia. Obtain medical record from [facility] about recent cardiac cath and type of his stents and other cardiac work-up. 3. 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 Patient was taken off from prednisone because of hypoglycemia. 4. ESRD on hemodialysis: The patient follows [place] oyster worker, Dr Strickland. Discussed with Dr. Cruz and consult requested. On dialysis usually Saturday but she was not dialyzed on Saturday and had on 04/27 supposed to evaluate this today. Monitor electrolytes and kidney function. Serum magnesium and phosphorus ordered. Serum potassium level is normal. 5. Diabetes mellitus type II with hyperglycemia: Accu-Cheks before meals and at bedtime and cover with Humalog sliding scale. Continue Lantus insulin, dose decreased to 35 units subcutaneous twice daily with holding parameters. Glucose in BMP is high at 299 6. Pancytopenia due to cirrhosis and kidney failure: WBC count 2.3 thousand, hemoglobin 9.5 g platelet count 72,000. Patient WBC count platelet count is similar to December 2020. Patient hemoglobin is 8.5 on 12/2020. Patient has chronic macrocytic anemia from chronic disease with cirrhosis and kidney failure. MCV 100. 7 multiple comorbidities including obstructive sleep apnea, chronic diastolic heart failure, chronic bilateral lower extremity lymphedema, anxiety and depression: Patient is on sertraline and trazodone can be resumed after n.p.o. status. Multiple comorbidities complicates the present care and expect difficult and delay recovery 8. DVT prophylaxis: Pharmacological prophylaxis contraindicated. Bilateral SCDs. Morbid obesity: BMI 43.4 kg/m?. Shuttleless Loom Weaver consult. Outpatient dietary clinic follow-up. Physical activity encouraged Living will/advanced directive/end of life care: Patient does have living will or advanced directive. Her is power of medical laboratory assistant for health. After discussion of benefits/risks procedures involved with full code, DNR CC arrest and DNR CC, the patient opted for full code. Patient does want artificial life support including intubation, tube feed, ventilator and/chest compression, central venous catheter, vasopressor and DC shock if needed Total time spent in [id number] encounter in discussion of advanced directive 16 minutes.
[2021-04-28 09:17] LABS: Magnesium 2.3 mg/dL (1.6-2.6); Phosphorus 3.3 mg/dL (2.5-4.9)
[2021-04-28 10:37] LABS: Hematocrit 26.7 % (37-47); Hemoglobin 8.5 g/dL (12.0-15.0)
[2021-04-28] MEDS: Lactated Ringers 1,000 ML 75 ML IV (11:40)
--- NOTE | 2021-04-28 11:55 | CASEMGMT ---
NIEVES BIANCHI assessment: Face to Face with patient for initial transition planning/care coordination assessment. NIEVES BIANCHI introduced self and role at [facility], pt voices understanding and consents to assessment. Pt is sitting up in chair in no distress on room air. Pt is A/Ox4 and answers all questions appropriately. Pt's is at bedside during assessment. Care providers, pharmacy, and demographics verified. Presentation: Pt recently had heart stents place and in on blood thinner. Pt with rectal bleeding Admitting dx: Upper GI bleed PCP: Geremias Specialists: Alicia cardio; Em nephradha [facility] Insurance: [employer]/[facility] Prescription Benefit: HumR/YVONNE Living Will/HPOA: Pt has LW/HPOA and is aware that they are on file at [facility]. Pt , Carlos Guerrier, is HPOA. LNOK: Carlos Guerrier, /HPOA Living Arrangements: Pt lives with in 2nd floor apt with 13 steps in and states some difficulty with stairs. Pt is independent with ADL's. Transportation: Pt normally drives self and states no transportation concerns. DME/HHC: Pt has a rollator and shower chair. Pt states no need for any further DME. Pt states no hx of SNF or HHC in past. Pt has OP dialysis MWF at 0650. Pt states no concerns with going home at time of discharge. Pt is on disability. Pt states does not smoke cigarettes or drink ETOH. Pt states no further concerns/needs. CM to follow for any further discharge planning/needs. Advised pt to ask for CM if any further questions/concerns/needs arise, voices understanding. Pt Goal: Home [place] NIEVES BIANCHI
[2021-04-28] MEDS: Tacrolimus 0.5 MG Capsule PO ×2 (11:56→20:55)
--- NOTE | 2021-04-28 12:05 | CON.PCM.RE_ITS ---
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, last dialyzed yesterday (off schedule due to heart cath earlier this week) who presented to emergency room with complaints of bright red blood per rectum. She was evaluated by GI, planning for scope later today. Initial hemoglobin in the ER 9.5, repeat hemoglobin 8.5 today. On Saturday at the kidney center hemoglobin was 9.6. Patient does receive Micera with HD. She is on pantoprazole drip. We will plan for dialysis today to regularize schedule. No heparin with dialysis and minimal UF as patient is near EDW. EDW is 108 kg. Bllod pressures are acceptable, she is not on any antihypertensives at this time. Further orders forthcoming as hospitalization evolves. Thank you for allowing us to participate in the care of Ms. Kuo. HPI Consult Data Date of Consult: 04/28/21 HPI Narrative HPI Narrative: CHRISTINA KUO, is a 65 F with past medical history significant for ESRD on hemodialysis, dialyzes Saturday schedule at 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 Patient was admitted for further evaluation and treatment. Patient last dialyzed at the kidney center yesterday, she was off schedule due to recent heart cath with stents on April 25. Patient is very compliant with dialysis. After recent cath procedure patient was started on Plavix and sublingual nitro. [facility] Medical History Anemia Back pain Blister Cancer Cardiology follow-up encounter Celiac disease Chronic kidney disease, stage 3 Chronic renal failure, stage 4 (severe) Chronic renal failure, stage 5 COPD (chronic obstructive pulmonary disease) CPAP (continuous positive airway pressure) dependence Diabetes DVT (deep venous thrombosis) Gastric reflux GERD (gastroesophageal reflux disease) History of echocardiogram (~01/22/20) History of edema History of irregular heartbeat History of renal disease History of stress test (~12/07/19) History of uterine cancer Hx of Krueger's palsy Hypertension Infection involving suture with abscess Insulin dependent diabetes mellitus LIVER TR[employer]PLANT Sleep apnea Wears dentures Wears glasses Home Medications ascorbic acid (vitamin C) 1,000 mg PO DAILY 02/20/15 [History Last Taken 09/09/19] cholecalciferol (vitamin D3) 1,000 unit PO BID 02/20/15 [History Last Taken 09/09/19] atorvastatin 10 mg PO QHS 10/19/16 [History Last Taken 09/09/19] Lantus Solostar U-100 Insulin 40 unit SQ BID 05/29/18 [History Last Taken 09/09/19] insulin aspart U-100 [Novolog Flexpen U-100 Insulin] 14 units SC TIDCM 05/29/18 [History Last Taken 09/09/19] sertraline 50 mg PO DAILY #1 10/13/18 [Rx Last Taken 09/09/19] tacrolimus 0.5 mg PO BID 09/10/19 [History Last Taken 04/27/21] trazodone 200 mg PO QHS 09/10/19 [History Last Taken 09/09/19] vitamin B complex 1 tablet PO DAILY 09/10/19 [History Last Taken 09/09/19] albuterol sulfate 2 puff IH Q4H PRN PRN 02/25/20 [History Last Taken Unknown] carvedilol 12.5 mg PO BID 02/25/20 [History Last Taken 08/03/20] epoetin marco-epbx 40,000 unit/mL injection solution 20,000 unit SC .QOWEEK 05/23/20 [History Last Taken Unknown] hydroxyzine HCl 25 mg tablet 25 mg PO BID PRN 05/23/20 [History Last Taken Unknown] levothyroxine 25 mcg tablet 88 mcg PO DAILY tablet 05/23/20 [History Last Taken 04/28/21] ropinirole 1 mg tablet 1 mg PO .QAM tablet 05/23/20 [History Last Taken 06/16/20] torsemide 20 mg tablet 20 mg PO TID tablet 05/23/20 [History Last Taken Unknown] ropinirole 2 mg PO QHS 06/10/20 [History Last Taken Unknown] sevelamer carbonate 800 mg PO TID 06/10/20 [History Last Taken Unknown] pantoprazole 40 mg PO PRN PRN 07/27/20 [History Last Taken 08/03/20] hydrocodone-acetaminophen 1 tab PO Q8H PRN 2 Days #6 tab 08/03/20 [Rx Last Taken Unknown] oxycodone-acetaminophen 1 tab PO Q6H PRN PRN 3 Days #12 tablet 12/08/20 [Rx Last Taken Unknown] clopidogrel 75 mg PO DAILY 04/28/21 [History Last Taken Unknown] Allergy/AdvReac Type Severity Reaction Status Date / Time amlodipine [From Norvasc] Allergy Severe Hives Verified 04/28/21 05:37 ampicillin sodium Allergy Severe Hives Verified 04/28/21 05:37 [From Unasyn] buspirone HCl [From BuSpar] Allergy Severe Hives Verified 04/28/21 05:37 cefadroxil [From Duricef] Allergy Severe Hives Verified 04/28/21 05:37 lisinopril Allergy Severe Swelling Verified 04/28/21 05:37 naproxen Allergy Severe Hives Verified 04/28/21 05:37 niacin Allergy Severe Hives Verified 04/28/21 05:37 [From Niaspan Extended-Release] sulbactam sodium Allergy Severe Hives Verified 04/28/21 05:37 [From Unasyn] Sulfa (Sulfonamide Allergy Severe Hives Verified 04/28/21 05:37 Antibiotics) cephalexin [From Keflex] Allergy Hives Verified 04/28/21 05:37 omeprazole AdvReac Severe Other Verified 04/28/21 05:37 losartan AdvReac Swelling Verified 04/28/21 05:37 Family History Mother Diabetes Anemia Father Hypertension LUNG/RESPIRATORY DISEASE Surgical History History of cholecystectomy History of coronary artery stent placement History of left knee surgery History of left salpingo-oophorectomy History of radical hysterectomy History of splenectomy History of ventral hernia repair S/P arteriovenous (AV) fistula creation (~06/16/20) Social History Smoking Status: Never smoker substance use type: does not use ROS ROS Narrative As in HPI and past medical history Physical Exam Narrative Const: Alert and oriented x3 HEENT: Head is normocephalic, oral mucosa is moist Cardiovascular: S1-S2, rhythm rate regular Respiratory: Lung sounds clear anteriorly and posteriorly, no wheezes rhonchi rales noted Extremities: Trace nonpitting edema bilateral lower leg AV fistula left arm accessed for hemodialysis Lab / Micro Data Result Diagrams: 04/28/21 10:28 04/28/21 05:40 Labs: Laboratory Results - last 24 hr 04/28/21 05:40: WBC 2.3 L, RBC 3.01 L, Hgb 9.5 L, Hct 30.1 L, MCV 100.0 H, MCH 31.6, MCHC 31.6 L, RDW Std Deviation 68.4 H, RDW Coeff of Tami 18.4 H, Plt Count 72 L, MPV 10.9, Immature Gran % (Auto) 1.300 H, Neut % (Auto) 70.8 H, Lymph % (Auto) 14.4 L, [place] % (Auto) 8.7, Eos % (Auto) 4.4, Baso % (Auto) 0.4, Absolute Neuts (auto) 1.6 L, Absolute Lymphs (auto) 0.33 L, Nucleated RBC % 0, Diff Path Review May foll, Anisocytosis 1+, Macrocytosis 1+ 04/28/21 05:40: PT 12.8, INR 1.0, APTT 28.1 04/28/21 05:40: Sodium 136, Potassium 4.3, Chloride 96 L, Carbon Dioxide 32.0, Anion Gap 8, BUN 27 H, Creatinine 5.52 H, Estim Creat Clear Calc 9.39, Est GFR (MDRD) Af Amer 10 L, Est GFR (MDRD) Non-Af 8 L, BUN/Creatinine Ratio 4.9 L, Glucose 299 H, Calcium 9.2 04/28/21 05:40: Phosphorus 3.3, Magnesium 2.3 04/28/21 05:45: Crossmatch See Detail 04/28/21 06:10: Lactic Acid 1.9 04/28/21 10:28: Hgb 8.5 L, Hct 26.7 L Micro: Microbiology 04/28/21 11:15 Nasal Secretion SARS-CoV-2 Antigen (Rapid) - Final 04/28/21 06:00 Stool Stool Occult Blood (TOMASZ) - Final Occult Blood Positive Radiology Impression Abdomen/Pelvis CT 04/28/21 06:03 IMPRESSION: Negative unenhanced CT of the abdomen and pelvis for acute abnormality. Electronically Signed: Kiko Villar MD at 6:41 EST , Documented by User: Dr. Selina Marlow MD 04/28/21 19:17 HPI Consult Data Date of Consult: 04/28/21 [facility] Medical History Anemia Back pain Blister Cancer Cardiology follow-up encounter Celiac disease Chronic kidney disease, stage 3 Chronic renal failure, stage 4 (severe) Chronic renal failure, stage 5 COPD (chronic obstructive pulmonary disease) CPAP (continuous positive airway pressure) dependence Diabetes DVT (deep venous thrombosis) Gastric reflux GERD (gastroesophageal reflux disease) History of echocardiogram (~01/22/20) History of edema History of irregular heartbeat History of renal disease History of stress test (~12/07/19) History of uterine cancer Hx of Krueger's palsy Hypertension Infection involving suture with abscess Insulin dependent diabetes mellitus LIVER [employer]ANT Sleep apnea Wears dentures Wears glasses Home Medications ascorbic acid (vitamin C) 1,000 mg PO DAILY 02/20/15 [History Last Taken 09/09/19] cholecalciferol (vitamin D3) 1,000 unit PO BID 02/20/15 [History Last Taken 09/09/19] atorvastatin 10 mg PO QHS 10/19/16 [History Last Taken 09/09/19] Lantus Solostar U-100 Insulin 40 unit SQ BID 05/29/18 [History Last Taken 09/09/19] insulin aspart U-100 [Novolog Flexpen U-100 Insulin] 14 units SC TIDCM 05/29/18 [History Last Taken 09/09/19] sertraline 50 mg PO DAILY #1 10/13/18 [Rx Last Taken 09/09/19] tacrolimus 0.5 mg PO BID 09/10/19 [History Last Taken 04/27/21] trazodone 200 mg PO QHS 09/10/19 [History Last Taken 09/09/19] vitamin B complex 1 tablet PO DAILY 09/10/19 [History Last Taken 09/09/19] albuterol sulfate 2 puff IH Q4H PRN PRN 02/25/20 [History Last Taken Unknown] carvedilol 12.5 mg PO BID 02/25/20 [History Last Taken 08/03/20] epoetin marco-epbx 40,000 unit/mL injection solution 20,000 unit SC .QOWEEK 05/23/20 [History Last Taken Unknown] hydroxyzine HCl 25 mg tablet 25 mg PO BID PRN 05/23/20 [History Last Taken Unknown] levothyroxine 25 mcg tablet 88 mcg PO DAILY tablet 05/23/20 [History Last Taken 04/28/21] ropinirole 1 mg tablet 1 mg PO .QAM tablet 05/23/20 [History Last Taken 06/16/20] torsemide 20 mg tablet 20 mg PO TID tablet 05/23/20 [History Last Taken Unknown] ropinirole 2 mg PO QHS 06/10/20 [History Last Taken Unknown] sevelamer carbonate 800 mg PO TID 06/10/20 [History Last Taken Unknown] pantoprazole 40 mg PO PRN PRN 07/27/20 [History Last Taken 08/03/20] hydrocodone-acetaminophen 1 tab PO Q8H PRN 2 Days #6 tab 08/03/20 [Rx Last Taken Unknown] oxycodone-acetaminophen 1 tab PO Q6H PRN PRN 3 Days #12 tablet 12/08/20 [Rx Last Taken Unknown] clopidogrel 75 mg PO DAILY 04/28/21 [History Last Taken Unknown] Allergy/AdvReac Type Severity Reaction Status Date / Time amlodipine [From Norvasc] Allergy Severe Hives Verified 04/28/21 05:37 ampicillin sodium Allergy Severe Hives Verified 04/28/21 05:37 [From Unasyn] buspirone HCl [From BuSpar] Allergy Severe Hives Verified 04/28/21 05:37 cefadroxil [From Duricef] Allergy Severe Hives Verified 04/28/21 05:37 lisinopril Allergy Severe Swelling Verified 04/28/21 05:37 naproxen Allergy Severe Hives Verified 04/28/21 05:37 niacin Allergy Severe Hives Verified 04/28/21 05:37 [From Niaspan Extended-Release] sulbactam sodium Allergy Severe Hives Verified 04/28/21 05:37 [From Unasyn] Sulfa (Sulfonamide Allergy Severe Hives Verified 04/28/21 05:37 Antibiotics) cephalexin [From Keflex] Allergy Hives Verified 04/28/21 05:37 omeprazole AdvReac Severe Other Verified 04/28/21 05:37 losartan AdvReac Swelling Verified 04/28/21 05:37 Family History Mother Diabetes Anemia Father Hypertension LUNG/RESPIRATORY DISEASE Surgical History History of cholecystectomy History of coronary artery stent placement History of left knee surgery History of left salpingo-oophorectomy History of radical hysterectomy History of splenectomy History of ventral hernia repair S/P arteriovenous (AV) fistula creation (~06/16/20) Social History Smoking Status: Never smoker substance use type: does not use Lab / Micro Data Result Diagrams: 04/28/21 10:28 04/28/21 05:40
[2021-04-28 12:52] LABS: Pathologist Review Reviewed
[2021-04-28 13:36] LABS: Bedside Glucose 126 mg/dL (70-110)
--- NOTE | 2021-04-28 14:43 | DIALYSIS ---
Hemodialysis tx completed x 4 hours without complications. Pt tolerated tx well, fluid removed 1,500ml using crit-line monitor to B-profile. Vitals stable post tx. Verbal report given to NIEVES Florez.
[2021-04-28 16:06] LABS: Bedside Glucose 117 mg/dL (70-110)
[2021-04-28 16:36] LABS: Bedside Glucose 129 mg/dL (70-110)
--- NOTE | 2021-04-28 16:47 | CON.PCM.GI_ITS ---
HPI Consult Data Date of Consult: 04/28/21 HPI Narrative HPI Narrative: 65-year-old status post orthotopic liver transplant secondary to Mora cirrhosis on tacrolimus, cervical cancer and uterine cancer status post total abdominal hysterectomy, CKD on hemodialysis from diabetes mellitus. She presents here after developing abdominal pain in the mid epigastric area associated with multiple episodes of lower GI bleeding. She recently underwent a stress test which was abnormal and resulted in a cardiac catheterization in which she underwent PTCA with 3 stents placed. She is on aspirin and Plavix. In the ED she was discovered to be normotensive and mildly tachycardic. Her hemoglobin was 8. 5, platelet count 73 and white blood cell count of 2.9. BUN/creatinine ratio is 27:2 0.5. She does not make any urine. I was consulted for GI bleed management. [facility] Medical History Anemia Back pain Blister Cancer Cardiology follow-up encounter Celiac disease Chronic kidney disease, stage 3 Chronic renal failure, stage 4 (severe) Chronic renal failure, stage 5 COPD (chronic obstructive pulmonary disease) CPAP (continuous positive airway pressure) dependence Diabetes DVT (deep venous thrombosis) Gastric reflux GERD (gastroesophageal reflux disease) History of echocardiogram (~01/22/20) History of edema History of irregular heartbeat History of renal disease History of stress test (~12/07/19) History of uterine cancer Hx of Krueger's palsy Hypertension Infection involving suture with abscess Insulin dependent diabetes mellitus LIVER TR[employer]PLANT Sleep apnea Wears dentures Wears glasses Home Medications ascorbic acid (vitamin C) 1,000 mg PO DAILY 02/20/15 [History Last Taken 09/09/19] cholecalciferol (vitamin D3) 1,000 unit PO BID 02/20/15 [History Last Taken 09/09/19] atorvastatin 10 mg PO QHS 10/19/16 [History Last Taken 09/09/19] Lantus Solostar U-100 Insulin 40 unit SQ BID 05/29/18 [History Last Taken 09/09/19] insulin aspart U-100 [Novolog Flexpen U-100 Insulin] 14 units SC TIDCM 05/29/18 [History Last Taken 09/09/19] sertraline 50 mg PO DAILY #1 10/13/18 [Rx Last Taken 09/09/19] tacrolimus 0.5 mg PO BID 09/10/19 [History Last Taken 04/27/21] trazodone 200 mg PO QHS 09/10/19 [History Last Taken 09/09/19] vitamin B complex 1 tablet PO DAILY 09/10/19 [History Last Taken 09/09/19] albuterol sulfate 2 puff IH Q4H PRN PRN 02/25/20 [History Last Taken Unknown] carvedilol 12.5 mg PO BID 02/25/20 [History Last Taken 08/03/20] epoetin marco-epbx 40,000 unit/mL injection solution 20,000 unit SC .QOWEEK 05/23/20 [History Last Taken Unknown] hydroxyzine HCl 25 mg tablet 25 mg PO BID PRN 05/23/20 [History Last Taken Unknown] levothyroxine 25 mcg tablet 88 mcg PO DAILY tablet 05/23/20 [History Last Taken 04/28/21] ropinirole 1 mg tablet 1 mg PO .QAM tablet 05/23/20 [History Last Taken 06/16/20] torsemide 20 mg tablet 20 mg PO TID tablet 05/23/20 [History Last Taken Unknown] ropinirole 2 mg PO QHS 06/10/20 [History Last Taken Unknown] sevelamer carbonate 800 mg PO TID 06/10/20 [History Last Taken Unknown] pantoprazole 40 mg PO PRN PRN 07/27/20 [History Last Taken 08/03/20] hydrocodone-acetaminophen 1 tab PO Q8H PRN 2 Days #6 tab 08/03/20 [Rx Last Taken Unknown] oxycodone-acetaminophen 1 tab PO Q6H PRN PRN 3 Days #12 tablet 12/08/20 [Rx Last Taken Unknown] clopidogrel 75 mg PO DAILY 04/28/21 [History Last Taken Unknown] Allergy/AdvReac Type Severity Reaction Status Date / Time amlodipine [From Norvasc] Allergy Severe Hives Verified 04/28/21 05:37 ampicillin sodium Allergy Severe Hives Verified 04/28/21 05:37 [From Unasyn] buspirone HCl [From BuSpar] Allergy Severe Hives Verified 04/28/21 05:37 cefadroxil [From Duricef] Allergy Severe Hives Verified 04/28/21 05:37 lisinopril Allergy Severe Swelling Verified 04/28/21 05:37 naproxen Allergy Severe Hives Verified 04/28/21 05:37 niacin Allergy Severe Hives Verified 04/28/21 05:37 [From Niaspan Extended-Release] sulbactam sodium Allergy Severe Hives Verified 04/28/21 05:37 [From Unasyn] Sulfa (Sulfonamide Allergy Severe Hives Verified 04/28/21 05:37 Antibiotics) cephalexin [From Keflex] Allergy Hives Verified 04/28/21 05:37 omeprazole AdvReac Severe Other Verified 04/28/21 05:37 losartan AdvReac Swelling Verified 04/28/21 05:37 Family History Mother Diabetes Anemia Father Hypertension LUNG/RESPIRATORY DISEASE Surgical History History of cholecystectomy History of coronary artery stent placement History of left knee surgery History of left salpingo-oophorectomy History of radical hysterectomy History of splenectomy History of ventral hernia repair S/P arteriovenous (AV) fistula creation (~06/16/20) Social History Smoking Status: Never smoker substance use type: does not use ROS Gastrointestinal Gastrointestinal: Reports abdominal pain and melena Lab / Micro Data Result Diagrams: 04/28/21 10:28 04/28/21 05:40 Labs: Laboratory Results - last 24 hr 04/28/21 05:40: WBC 2.3 L, RBC 3.01 L, Hgb 9.5 L, Hct 30.1 L, MCV 100.0 H, MCH 31.6, MCHC 31.6 L, RDW Std Deviation 68.4 H, RDW Coeff of Tami 18.4 H, Plt Count 72 L, MPV 10.9, Immature Gran % (Auto) 1.300 H, Neut % (Auto) 70.8 H, Lymph % (Auto) 14.4 L, [place] % (Auto) 8.7, Eos % (Auto) 4.4, Baso % (Auto) 0.4, Absolute Neuts (auto) 1.6 L, Absolute Lymphs (auto) 0.33 L, Nucleated RBC % 0, Diff Path Review Reviewed, Anisocytosis 1+, Macrocytosis 1+ 04/28/21 05:40: PT 12.8, INR 1.0, APTT 28.1 04/28/21 05:40: Sodium 136, Potassium 4.3, Chloride 96 L, Carbon Dioxide 32.0, Anion Gap 8, BUN 27 H, Creatinine 5.52 H, Estim Creat Clear Calc 9.39, Est GFR (MDRD) Af Amer 10 L, Est GFR (MDRD) Non-Af 8 L, BUN/Creatinine Ratio 4.9 L, Glucose 299 H, Calcium 9.2 04/28/21 05:40: Phosphorus 3.3, Magnesium 2.3 04/28/21 05:45: Blood Type AB NEGATIVE, Antibody Screen NEGATIVE, Crossmatch See Detail 04/28/21 06:10: Lactic Acid 1.9 04/28/21 10:28: Hgb 8.5 L, Hct 26.7 L 04/28/21 11:23: POC Glucose 129 H 04/28/21 13:28: POC Glucose 126 H 04/28/21 15:59: POC Glucose 117 H Micro: Microbiology 04/28/21 11:15 Nasal Secretion SARS-CoV-2 Antigen (Rapid) - Final 04/28/21 06:00 Stool Stool Occult Blood (TOMASZ) - Final Occult Blood Positive Radiology Impression Abdomen/Pelvis CT 04/28/21 06:03 IMPRESSION: Negative unenhanced CT of the abdomen and pelvis for acute abnormality. Electronically Signed: Kiko Villar MD at 6:41 EST Reading Location ID and State: [facility] / [place] Tel , Service support , Assessment & Plan Assessment/Plan (1) GI bleed: QUALIFIERS: GI bleed type/associated pathology: unspecified gastrointestinal hemorrhage type Qualified Code(s): K92.2 - Gastrointestinal hemorrhage, unspecified PLAN: Differential diagnosis for GI bleed would be upper GI bleed with rapid transit, AVM, peptic ulcer disease, diverticular disease, ischemic colitis. She should undergo an upper endoscopy. She was explained alternatives, risk, benefits including not withstanding bleeding, infection, sepsis, perforation, need for emergent surgery . Have an ASA of 3. (2) History of liver transplant: PLAN: Recommend to check tacrolimus levels. Her LFTs seem to be stable. I believe that she is likely pancytopenic from tacrolimus. Charges/Coding Visit Charges Inpatient E&M: 00848 Init Hosp L2
--- NOTE | 2021-04-28 17:13 | OP.EGD_ITS ---
Patient Name: Sivan Guerrier Procedure Date: 04/28/2021 4:39 PM Date of : 1955 Age: 65 Procedure: Upper GI endoscopy Indications: Hematochezia Providers: Buck Lerner DO Medicines: See the Anesthesia note for documentation of the administered medications Patient Profile: This is a 65 year old female. Refer to note in patient chart for documentation of history and physical. Patient has symptoms. She is status post liver transplant in the distant past. Complications: No immediate complications. Procedure: Pre-Anesthesia Assessment: - Prior to the procedure, a History and Physical was performed, and patient medications and allergies were reviewed. The risks and benefits of the procedure and the sedation options and risks were discussed with the patient. All questions were answered and informed consent was obtained. Patient identification and proposed procedure were verified by the physician in the pre-procedure area. Mental Status Examination: alert and oriented. Airway Examination: normal oropharyngeal airway and neck mobility. Respiratory Examination: clear to auscultation. CV Examination: normal. Prophylactic Antibiotics: The patient does not require prophylactic antibiotics. Prior Anticoagulants: The patient has taken no previous anticoagulant or antiplatelet agents. After reviewing the risks and benefits, the patient was deemed in satisfactory condition to undergo the procedure. The anesthesia plan was to use moderate sedation / analgesia (conscious sedation). Immediately prior to administration of medications, the patient was re-assessed for adequacy to receive sedatives. The heart rate, respiratory rate, oxygen saturations, blood pressure, adequacy of pulmonary ventilation, and response to care were monitored throughout the procedure. The physical status of the patient was re-assessed after the procedure. After obtaining informed consent, the endoscope was passed under direct vision. Throughout the procedure, the patient's blood pressure, pulse, and oxygen saturations were monitored continuously. The gastroscope was introduced through the mouth, and advanced to the second part of duodenum. The upper GI endoscopy was accomplished without difficulty. The patient tolerated the procedure well. Moderate Sedation: Moderate (conscious) sedation was administered by the endoscopy nurse and supervised by the endoscopist. The patient's oxygen saturation, heart rate, blood pressure and response to care were monitored. Total physician intraservice time was 15 minutes. Scope In: 4:59:24 PM Scope Out: 5:06:25 PM Total Procedure Duration Time 0 hours 7 minutes 1 second Findings: The examined esophagus was normal. No gross lesions were noted in the entire examined stomach. Two 5 mm angiodysplastic lesions with stigmata of recent bleeding were found in the first portion of the duodenum. Coagulation for hemostasis using argon plasma at 0.3 liters/minute and 20 blanchard was successful. Estimated blood loss was minimal. Impression: - Normal esophagus. - No gross lesions in the stomach. - Two recently bleeding angiodysplastic lesions in the duodenum. Treated with argon plasma coagulation (APC). - No specimens collected. Recommendation: - Return patient to [facility] for [facility] care. - Advance diet as tolerated. - Continue present medications. -Outpatient colonoscopy due to her persistent anemia and pancytopenia Procedure Code(s): --- Professional --- 27714, Esophagogastroduodenoscopy, flexible, transoral; with control of bleeding, any method 52999, 59, Moderate sedation services provided by the same physician or other qualified health critical care physician assistant performing the diagnostic or therapeutic service that the sedation supports, requiring the presence of an independent trained observer to assist in the monitoring of the patient's level of consciousness and physiological status; initial 15 minutes of intraservice time, patient age 5 years or older CPT copyright 2017 [employer]. All rights reserved. The codes documented in this report are preliminary and upon medical records coder review may be revised to meet current compliance requirements. Buck Lerner DO 04/28/2021 5:13:04 PM This report has been signed electronically. Number of Addenda: 1 Note Initiated On: 04/28/2021 4:39 PM Addendum Number: 1 Addendum Date: 11/20/2021 6:39:07 AM MAC was used for sedation during this procedure. Buck Lerner DO 11/20/2021 6:39:11 AM This report has been signed electronically.
--- NOTE | 2021-04-28 17:13 | OP.CCLET_ITS ---
11/20/2021 Velia Archuleta [address] [place] [address] Re : Upper GI endoscopy procedure for Sivan Chey Dear Dr. Archuleta This procedure was performed on Wednesday, April 28, 2021. My impressions and recommendations are as follows: Impressions : - Normal esophagus. - No gross lesions in the stomach. - Two recently bleeding angiodysplastic lesions in the duodenum. Treated with argon plasma coagulation (APC). - No specimens collected. Recommendations : - Return patient to [facility] for [facility] care. - Advance diet as tolerated. - Continue present medications. -Outpatient colonoscopy due to her persistent anemia and pancytopenia My findings are described in the full procedure note, which is enclosed. If I can be of further assistance, please feel free to contact me at . Sincerely, Buck Lerner, 04/28/2021 5:13:04 PM This report has been signed electronically.
[2021-04-28 20:49] LABS: Hemoglobin 7.9 g/dL (12.0-15.0); POSITIVE COUNT YES
[2021-04-28] MEDS: Atorvastatin Calcium 10 MG Tablet PO (20:54)
[2021-04-28] MEDS: traZODone 100 MG Tablet 200 MG PO (20:54)
[2021-04-28] MEDS: Pramipexole Di-HCl 0.25 MG Tablet PO (20:55)
[2021-04-28 22:45] LABS: Bedside Glucose 242 mg/dL (70-110)
[2021-04-29 02:30] VITALS: BP 148/57; PULSE 87; RESP 18; TEMP 36.8; O2SAT 97
[2021-04-29 02:45] VITALS: PULSE 88
[2021-04-29 04:29] LABS: Absolute Lymphocyte Count 0.45 X10^3/uL (0.83-4.51); Absolute Neutrophil Count 1.9 X10^3/uL (2.0-7.7); Basophil# 0.02 X10^3/uL; Basophil% 0.7 % (0-1); Eosinophil# 0.12 X10^3/uL; Eosinophils% 4.4 % (0-5); Hematocrit 27.4 % (37-47); Hemoglobin 8.5 g/dL (12.0-15.0); Lymphocyte # 0.45 X10^3/ul (0.83-4.51); Lymphocyte % 16.6 % (19-41); Mean Corpuscular Hgb 30.8 pg (27.0-32.0); Mean Corpuscular Volume 99.3 fL (81-99); Mean Platelet Vol. 10.8 fl (6.2-12.0); Monocyte# 0.24 X10^3/uL; Monocyte% 8.9 % (0-10); NRBC Flagged by Analyzer 0 % (0-5); Neutrophil # 1.85 X10^3/uL (2.7-7.7); Neutrophil % 68.3 % (47-70); POSITIVE COUNT YES; POSITIVE DIFFERENTIAL YES; Platelet Count 77 K/mm3 (150-450); RBC Distribution Width CV 17.9 % (11.6-14.6); RBC Distribution Width SD 64.5 fl (35.1-43.9); Red Blood Count 2.76 M/mm3 (4.2-5.4); White Blood Count 2.7 K/mm3 (4.4-11.0)
[2021-04-29 04:32] LABS: Differential Indicated SCAN CRITERIA MET
[2021-04-29 04:52] LABS: Anion Gap 7 (5-15); BUN 14 mg/dL (7-18); Calcium,Total 8.7 mg/dL (8.5-10.1); Chloride 100 mmol/L (98-107); Creatinine, Serum 3.52 mg/dL (0.55-1.02); EST Glomerular Filtration Rate 14 mL/min (>60); Est Glom Filt Rate - Afr Amer 17 mL/min (>60); Estimated Creatinine Clearance 14.72 ml/min; Glucose 181 mg/dL (74-106); Potassium 4.1 mmol/L (3.5-5.1); Sodium Level 136 mmol/L (136-145)
[2021-04-29 04:56] LABS: Differential Comment SCANNED
[2021-04-29] MEDS: Levothyroxine 88 MCG Tablet PO (06:22)
[2021-04-29] MEDS: Insulin Lispro 100 UNIT/ML INSULN.PEN SC (06:22)
[2021-04-29] MEDS: Pramipexole Di-HCl 0.25 MG Tablet PO (06:23)
[2021-04-29 07:00] LABS: Bedside Glucose 219 mg/dL (70-110)
[2021-04-29 07:26] VITALS: O2SAT 95
[2021-04-29 07:50] VITALS: PULSE 86
--- NOTE | 2021-04-29 07:50 | PCM.DC.SUM ---
Providers Date of Admission: 04/28/21 Date of Discharge: 04/29/21 Primary Care Physician: Dr. Velia Archuleta MD Consultations 04/28/21 10:12 Consult: Gastroenterology Routine Consulting Provider: [facility] Reason for Consult: Upper GI Bleed on aspirin and plavix EMERGENT Consult: No Notified: Yes Date Notified: 04/28/21 Time Notified: 08:00 Method of Notification: Verbal Comments:: Notified by Dr. Dougherty 04/28/21 12:02 Consult: Nephrology Routine Consulting Provider: Selina Marlow Reason for Consult: dialysis EMERGENT Consult: No Notified: Yes Date Notified: 04/28/21 Time Notified: 12:03 Method of Notification: Verbal Comments:: Gabriela Reason For Visit: UPPER GI BLEED Diagnosis Discharge Diagnosis (1) GI bleed: Status: Acute Code(s): K92.2 - Gastrointestinal hemorrhage, unspecified Qualifiers: GI bleed type/associated pathology: unspecified gastrointestinal hemorrhage type Qualified Code(s): K92.2 - Gastrointestinal hemorrhage, unspecified (2) History of liver transplant: Status: Chronic Code(s): Z94.4 - Liver transplant status Medications at Discharge Home Medications ascorbic acid (vitamin C) 1,000 mg PO DAILY 02/20/15 cholecalciferol (vitamin D3) 1,000 unit PO BID 02/20/15 atorvastatin 10 mg PO QHS 10/19/16 Lantus Solostar U-100 Insulin 40 unit SQ BID 05/29/18 insulin aspart U-100 [Novolog Flexpen U-100 Insulin] 14 units SC TIDCM 05/29/18 sertraline 50 mg PO DAILY #1 10/13/18 tacrolimus 0.5 mg PO BID 09/10/19 trazodone 200 mg PO QHS 09/10/19 vitamin B complex 1 tablet PO DAILY 09/10/19 albuterol sulfate 2 puff IH Q4H PRN PRN 02/25/20 carvedilol 12.5 mg PO BID 02/25/20 epoetin marco-epbx 40,000 unit/mL injection solution 20,000 unit SC .QOWEEK 05/23/20 hydroxyzine HCl 25 mg tablet 25 mg PO BID PRN 05/23/20 levothyroxine 25 mcg tablet 88 mcg PO DAILY tablet 05/23/20 ropinirole 1 mg tablet 1 mg PO .QAM tablet 05/23/20 torsemide 20 mg tablet 20 mg PO TID tablet 05/23/20 ropinirole 2 mg PO QHS 06/10/20 sevelamer carbonate 800 mg PO TID 06/10/20 hydrocodone-acetaminophen 1 tab PO Q8H PRN 2 Days #6 tab 08/03/20 oxycodone-acetaminophen 1 tab PO Q6H PRN PRN 3 Days #12 tablet 12/08/20 clopidogrel 75 mg PO DAILY 04/28/21 aspirin [Ecotrin Low Strength] 81 mg PO DAILY #30 tab 04/29/21 ferrous sulfate 325 mg PO QODAY #30 tab 04/29/21 nitroglycerin 0.4 mg SUBLINGUAL Q5M PRN #30 tab 04/29/21 pantoprazole 40 mg PO BID #60 tab 04/29/21 Hospital Course Summary of Care Provided Hospital Course: This 64-year-old female with multiple comorbidities including vascular disease status post liver transplant on tacrolimus, ESRD hemodialysis was admitted in PCU through ED with upper GI bleed. 1. GI bleed most probably upper GI bleed: Patient is being admitted in PCU on product engineer. Started on IV fluid resuscitation even though she is a dialysis patient. On IV Protonix drip. GI DrLesley Lerner is consulted. Patient had EGD which showed 2 recently bled angiodysplastic lesion in the duodenum treated with argon plasma coagulation. No specimen collected. Discharge plan discussed with him. Discharged on Protonix 40 mg p.o. twice daily for 8 weeks and follow-up in GI clinic in 2 weeks. Orthostatic hypotension and tachycardia resolved. 2. Recent coronary artery status post 3 stents: There is no record of recent cardiac cath or type of stent but patient stated her filament cutter Dr. Vargas said she will need Plavix at least for 6 months. Seems most likely drug-eluting stent. Plavix continued. I talked to patient's filament cutter Dr. Vargas on the phone, Luis Fernando Fenton and he said she had multiple stents in multiple vessels with long segment of lesion. Baby aspirin can be resumed from tomorrow AM. If patient gets second time GI bleed, aspirin has to be stopped altogether. I personally discussed with the patient about anticoagulation regimen and advised to communicate same to PCP. Continue carvedilol, diuretics torsemide. 3. 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 Patient was taken off from prednisone because of hypoglycemia. Patient gets monthly his serum tacrolimus level and followed by marketing database coordinator [facility]. She had last month done and advised to get it within next 1 week. 4. ESRD on hemodialysis: The patient follows Luis Fernando manager inside, Dr Strickland. Discussed with Dr. Cruz and consult requested. On dialysis usually Saturday but she was not dialyzed on Saturday and was dialyzed during hospital course. Monitor electrolytes and kidney function. Serum magnesium and phosphorus are normal. Serum potassium level is normal. Patient was seen by manager inside and her dialysis regimen Saturday and Saturday regimen 5. Diabetes mellitus type II with hyperglycemia: Accu-Cheks before meals and at bedtime and cover with Humalog sliding scale. Continue Lantus insulin, dose decreased to 35 units subcutaneous twice daily with holding parameters. Glucose in BMP is high at 299 Short-acting insulin as part increased 15 units 3 times daily with meals. Continue Accu-Cheks at home follow with PCP. 6. Pancytopenia due to cirrhosis and kidney failure: WBC count 2.3 thousand, hemoglobin 9.5 g platelet count 72,000. Patient WBC count platelet count is similar to December 2020. Patient hemoglobin is 8.5 on 12/2020. MCV 100. Acute blood loss anemia with history of chronic macrocytic anemia from chronic disease with cirrhosis and kidney failure most likely due to upper GI bleed. Prescription for ferrous sulfate given. Patient already on vitamin C. 7 multiple comorbidities including obstructive sleep apnea, chronic diastolic heart failure, chronic bilateral lower extremity lymphedema, anxiety and depression: Patient is on sertraline and trazodone can be resumed after n.p.o. status. Multiple comorbidities complicates the present care and expect difficult and delay recovery 8. DVT prophylaxis: Pharmacological prophylaxis contraindicated. Bilateral SCDs. Morbid obesity: BMI 43.4 kg/m?. Auto Carrier Driver consult. Outpatient dietary clinic follow-up. Physical activity encouraged Discharge medication reconciliation done. Discharge follow-up instructions completed. Discharge process discussed with the patient and all questions were answered to patient's satisfaction. Total time spent, exact 40 minutes on discharge meds reconciliation, examination, coordination of care with nurses and ancillary staff, discussion with outside filament cutter, manager inside and oracle data warehouse developer review of imaging and blood test and discussion with the patient on follow-up instructions Living will/advanced directive/end of life care: Patient does have living will or advanced directive. Her is power of seedling sorter for health. After discussion of benefits/risks procedures involved with full code, DNR CC arrest and DNR CC, the patient opted for full code. Patient does want artificial life support including intubation, tube feed, ventilator and/chest compression, central venous catheter, vasopressor and DC shock if needed Physical Exam Narrative Seen and examined Patient did not had black stool or dark stool after admission. Today she had clear stool. Hemoglobin remained above 8, last 1 8.5 g. No dizziness lightheadedness. Blood pressure normal. Heart rate 87/min. General: Alert, Oriented x3, Cooperative. Morbid obesity BMI 43.4 kg/m?. HEENT: Atraumatic, PERRLA, EOMI, Normocephalic Oral: Oral mucosa dry. No Gingival or Mucosal Lesions/ Ulcerations Neck: Supple, No JVD, Negative Carotid Bruits Lungs: Air entry diminished in bilateral lung bases. No crepitation/rhonchi Cardiovascular: Regular rate, Regular Rhythm, Normal S1, Normal S2, systolic murmur over LLSB. Abdomen: Bowel Sounds Present, Soft,, Non-Distended. Mild nonspecific tenderness diffuse. Abdominal scar status post liver transplant. : On hemodialysis. Chronic low urine output. No renal angle tenderness. No suprapubic tenderness. Extremities: Chronic bilateral below-knee edema/lymphedema, venous hypertension. Capillary Refill Less than 3 Seconds Skin: No rashes, No breakdown Musculoskeletal: No Tenderness to Palpation of Joints or Extremities Neurological: Cranial nerves II-XII grossly intact, DTR 2+/4 and Symmetrical, Neuro grossly intact Psych/Mental Status: Normal Affect, Appropriate. Weight / BMI Weight Weight: 248 lb 3.848 oz Body Mass Index (BMI) 41.1 ABG / Lab / Microbiology Data Result Diagrams: 04/29/21 03:58 04/29/21 03:58 Laboratory: Laboratory Results - last 24 hr 04/28/21 05:40: Diff Path Review Reviewed 04/28/21 05:40: Phosphorus 3.3, Magnesium 2.3 04/28/21 05:45: Blood Type AB NEGATIVE, Antibody Screen NEGATIVE, Crossmatch See Detail 04/28/21 10:28: Hgb 8.5 L, Hct 26.7 L 04/28/21 11:23: POC Glucose 129 H 04/28/21 13:28: POC Glucose 126 H 04/28/21 15:59: POC Glucose 117 H 04/28/21 19:46: Hgb 7.9 L, Hct 26.0 L 04/28/21 21:00: POC Glucose 242 H 04/29/21 03:58: WBC 2.7 L, RBC 2.76 L, Hgb 8.5 L, Hct 27.4 L, MCV 99.3 H, MCH 30.8, MCHC 31.0 L, RDW Std Deviation 64.5 H, RDW Coeff of Tami 17.9 H, Plt Count 77 L, MPV 10.8, Immature Gran % (Auto) 1.100 H, Neut % (Auto) 68.3, Lymph % (Auto) 16.6 L, [place] % (Auto) 8.9, Eos % (Auto) 4.4, Baso % (Auto) 0.7, Absolute Neuts (auto) 1.9 L, Absolute Lymphs (auto) 0.45 L, Nucleated RBC % 0, Differential Comment SCANNED, Diff Path Review July04/29/21 03:58: Sodium 136, Potassium 4.1, Chloride 100, Carbon Dioxide 29.0, Anion Gap 7, BUN 14, Creatinine 3.52 H, Estim Creat Clear Calc 14.72, Est GFR (MDRD) Af Amer 17 L, Est GFR (MDRD) Non-Af 14 L, BUN/Creatinine Ratio 4.0 L, Glucose 181 H, Calcium 8.7 04/29/21 06:17: POC Glucose 219 H Microbiology: Microbiology 04/28/21 11:15 Nasal Secretion SARS-CoV-2 Antigen (Rapid) - Final 04/28/21 06:00 Stool Stool Occult Blood (TOMASZ) - Final Occult Blood Positive Meaningful Use Info Meaningful Use Diagnoses (Choose all that apply): None applicable Discharge Plan Admission Admit Date/Time: 04/28/21 08:18 Primary Reason for Your Visit: Acute upper GI bleed Attending Provider: Jignesh Maurer Primary Care Provider: Velia Archuleta Consulting Providers: Selina Marlow Instructions Additional Instructions / Restrictions: Patient advised to get serum tacrolimus level as an outpatient within 1 week. Her marketing database coordinator in [facility] follows that. If she had second episode of GI bleed, need to go to ER immediately and aspirin has to be stopped altogether. Follow-up filament cutter, Dr Vargas in 2 weeks Follow-up marketing database coordinator, [facility], post liver transplant care within 1 month. Discharge Orders/Prescriptions Prescriptions: New nitroglycerin 0.4 mg Tablet, Sublingual 0.4 mg sublingual Q5M PRN (Reason: Cardiac/Chest Pain) Qty: 30 RF: 0 aspirin [Ecotrin Low Strength] 81 mg tablet,delayed release (DR/EC) 81 mg PO DAILY Qty: 30 RF: 0 ferrous sulfate 325 mg (65 mg iron) tablet,delayed release (DR/EC) 325 mg PO QODAY Qty: 30 RF: 1 Continued hydroxyzine HCl 25 mg tablet 25 mg PO BID PRN (Reason: Itching) RF: 0 Retacrit 40,000 unit/mL solution 20,000 unit SC .QOWEEK RF: 0 ascorbic acid (vitamin C) 500 MG tablet,chewable 1,000 mg PO DAILY RF: 0 cholecalciferol (vitamin D3) 1,000 UNIT tablet 1,000 unit PO BID RF: 0 levothyroxine 25 mcg tablet 88 mcg PO DAILY RF: 0 atorvastatin 10 MG tablet 10 mg PO QHS RF: 0 insulin aspart U-100 [Novolog Flexpen U-100 Insulin] 100 UNITS/ML insulin pen 14 units SC TIDCM RF: 0 Lantus Solostar U-100 Insulin 100 UNIT/ML insulin pen 40 unit SQ BID RF: 0 sertraline 50 MG tablet 50 mg PO DAILY Qty: 1 RF: 0 ropinirole 1 mg tablet 1 mg PO .QAM RF: 0 trazodone 150 MG tablet 200 mg PO QHS RF: 0 tacrolimus 1 MG capsule 0.5 mg PO BID RF: 0 vitamin B complex 1 EACH tablet 1 tablet PO DAILY RF: 0 torsemide 20 mg tablet 20 mg PO TID RF: 0 carvedilol 25 MG tablet 12.5 mg PO BID RF: 0 albuterol sulfate 1 PUFF inhaler 2 puff IH Q4H PRN PRN (Reason: Sob &/Or Wheezing) RF: 0 sevelamer carbonate 800 MG tablet 800 mg PO TID RF: 0 ropinirole 2 MG tablet extended release 24 hr 2 mg PO QHS RF: 0 hydrocodone-acetaminophen 5-325 mg tablet 1 tab PO Q8H PRN (Reason: pain) 2 Days Qty: 6 RF: 0 oxycodone-acetaminophen 1 TABLET tablet 1 tab PO Q6H PRN PRN (Reason: Pain) 3 Days Qty: 12 RF: 0 clopidogrel 75 mg Tablet 75 mg PO DAILY RF: 0 Changed pantoprazole 40 MG tablet,delayed release (DR/EC) 40 mg PO BID Qty: 60 RF: 2 Referrals / Follow Up: Velia Archuleta MD [Primary Care Provider] - Selina Marlow MD [STAFF PHYSICIAN] - Within 2 Weeks (ESRD on hemodialysis) Disposition Disposition (needs filled in before D/C Order can be placed): Home, Self Care Charges/Coding Visit Charges Inpatient E&M: 20170 Disch Hosp
[2021-04-29] MEDS: Clopidogrel Bisulfate 75 MG Tablet PO (08:22)
[2021-04-29] MEDS: Tacrolimus 0.5 MG Capsule PO (08:22)
[2021-04-29 08:25] VITALS: BP 133/64; PULSE 87; RESP 18; TEMP 36.4; O2SAT 100
--- NOTE | 2021-04-29 08:50 | DCINST_ITS ---
Discharge Instructions Diet Discharge Diet: 1800 Calorie Control Diet, 2000 mg Sodium Diet and Renal Diet Activity Discharge Activity: Return to Normal Activity and May Not Drive Dressing / Incision Call your doctor if you observe: Fever of 101 or Higher, Coldness, Increased Pain, Numbness or Tingling, Change in Color, Inability to urinate, Inability to have a bowel movement, Using more than 1 pad per hour, Shortness of breath, Dizziness, Fainting spells, Swelling in the ankles, Chest pain, Prolonged hiccupping, Increased palpitations (irregular heartbeat), Calf discomfort and Uncontrolled pain Follow Up Care Test Results: Test results from this visit will be discussed in further detail at your follow-up appointment, if applicable. Discharge Plan Admission Admit Date/Time: 04/28/21 08:18 Primary Reason for Your Visit: Acute upper GI bleed Attending Provider: Jignesh Maurer Primary Care Provider: Velia Archuleta Consulting Providers: Selina Marlow Instructions Additional Instructions / Restrictions: Patient advised to get serum tacrolimus level as an outpatient within 1 week. Her sales planning coordinator in [facility] follows that. If she had second episode of GI bleed, need to go to ER immediately and aspirin has to be stopped altogether. Follow-up bottle capper, Dr Vargas in 2 weeks Follow-up sales planning coordinator, [facility], post liver transplant care within 1 month. Discharge Orders/Prescriptions Prescriptions: New nitroglycerin 0.4 mg Tablet, Sublingual 0.4 mg sublingual Q5M PRN (Reason: Cardiac/Chest Pain) Qty: 30 RF: 0 aspirin [Ecotrin Low Strength] 81 mg tablet,delayed release (DR/EC) 81 mg PO DAILY Qty: 30 RF: 0 ferrous sulfate 325 mg (65 mg iron) tablet,delayed release (DR/EC) 325 mg PO QODAY Qty: 30 RF: 1 Continued hydroxyzine HCl 25 mg tablet 25 mg PO BID PRN (Reason: Itching) RF: 0 Retacrit 40,000 unit/mL solution 20,000 unit SC .QOWEEK RF: 0 ascorbic acid (vitamin C) 500 MG tablet,chewable 1,000 mg PO DAILY RF: 0 cholecalciferol (vitamin D3) 1,000 UNIT tablet 1,000 unit PO BID RF: 0 levothyroxine 25 mcg tablet 88 mcg PO DAILY RF: 0 atorvastatin 10 MG tablet 10 mg PO QHS RF: 0 insulin aspart U-100 [Novolog Flexpen U-100 Insulin] 100 UNITS/ML insulin pen 14 units SC TIDCM RF: 0 Lantus Solostar U-100 Insulin 100 UNIT/ML insulin pen 40 unit SQ BID RF: 0 sertraline 50 MG tablet 50 mg PO DAILY Qty: 1 RF: 0 ropinirole 1 mg tablet 1 mg PO .QAM RF: 0 trazodone 150 MG tablet 200 mg PO QHS RF: 0 tacrolimus 1 MG capsule 0.5 mg PO BID RF: 0 vitamin B complex 1 EACH tablet 1 tablet PO DAILY RF: 0 torsemide 20 mg tablet 20 mg PO TID RF: 0 carvedilol 25 MG tablet 12.5 mg PO BID RF: 0 albuterol sulfate 1 PUFF inhaler 2 puff IH Q4H PRN PRN (Reason: Sob &/Or Wheezing) RF: 0 sevelamer carbonate 800 MG tablet 800 mg PO TID RF: 0 ropinirole 2 MG tablet extended release 24 hr 2 mg PO QHS RF: 0 hydrocodone-acetaminophen 5-325 mg tablet 1 tab PO Q8H PRN (Reason: pain) 2 Days Qty: 6 RF: 0 oxycodone-acetaminophen 1 TABLET tablet 1 tab PO Q6H PRN PRN (Reason: Pain) 3 Days Qty: 12 RF: 0 clopidogrel 75 mg Tablet 75 mg PO DAILY RF: 0 Changed pantoprazole 40 MG tablet,delayed release (DR/EC) 40 mg PO BID Qty: 60 RF: 2 Referrals / Follow Up: Velia Archuleta MD [Primary Care Provider] - Selina Marlow MD [STAFF PHYSICIAN] - Within 2 Weeks (ESRD on hemodialysis) Disposition Disposition (needs filled in before D/C Order can be placed): Home, Self Care
--- NOTE | 2021-04-29 09:50 | PCM.PN.REN ---
Subjective Subjective Following for ESRD. The patient feels well today. There is no chest pain, shortness of breath, or nausea. She denies hematochezia or melena today. Objective Data Objective Data Vital Signs: Vital Signs Temp Pulse Resp BP Pulse Ox 98.3 F 86 18 148/57 H 95 04/29/21 02:30 04/29/21 07:50 04/29/21 02:30 04/29/21 02:30 04/29/21 07:26 Oxygen Delivery Method Room Air Weight: 112.6 kg Body Mass Index (BMI) 41.1 Intake & Output: Intake and Output for Last 24 Hours 04/27/21 04/28/21 04/29/21 23:59 23:59 23:59 Intake Total 325 / 325 1100 / 1100 Output Total 1500 / 1500 Balance -1175 / -1175 1100 / 1100 Lab / Micro Data Result Diagrams: 04/29/21 03:58 04/29/21 03:58 Labs: Laboratory Results - last 24 hr 04/28/21 05:40: Diff Path Review Reviewed 04/28/21 05:45: Blood Type AB NEGATIVE, Antibody Screen NEGATIVE, Crossmatch See Detail 04/28/21 10:28: Hgb 8.5 L, Hct 26.7 L 04/28/21 11:23: POC Glucose 129 H 04/28/21 13:28: POC Glucose 126 H 04/28/21 15:59: POC Glucose 117 H 04/28/21 19:46: Hgb 7.9 L, Hct 26.0 L 04/28/21 21:00: POC Glucose 242 H 04/29/21 03:58: WBC 2.7 L, RBC 2.76 L, Hgb 8.5 L, Hct 27.4 L, MCV 99.3 H, MCH 30.8, MCHC 31.0 L, RDW Std Deviation 64.5 H, RDW Coeff of Tami 17.9 H, Plt Count 77 L, MPV 10.8, Immature Gran % (Auto) 1.100 H, Neut % (Auto) 68.3, Lymph % (Auto) 16.6 L, [place] % (Auto) 8.9, Eos % (Auto) 4.4, Baso % (Auto) 0.7, Absolute Neuts (auto) 1.9 L, Absolute Lymphs (auto) 0.45 L, Nucleated RBC % 0, Differential Comment SCANNED, Diff Path Review July foll 04/29/21 03:58: Sodium 136, Potassium 4.1, Chloride 100, Carbon Dioxide 29.0, Anion Gap 7, BUN 14, Creatinine 3.52 H, Estim Creat Clear Calc 14.72, Est GFR (MDRD) Af Amer 17 L, Est GFR (MDRD) Non-Af 14 L, BUN/Creatinine Ratio 4.0 L, Glucose 181 H, Calcium 8.7 04/29/21 06:17: POC Glucose 219 H Micro: Microbiology 04/28/21 11:15 Nasal Secretion SARS-CoV-2 Antigen (Rapid) - Final 04/28/21 06:00 Stool Stool Occult Blood (TOMASZ) - Final Occult Blood Positive Physical Exam Narrative Const: Alert and oriented x3 HEENT: Head is normocephalic, oral mucosa is moist Cardiovascular: S1-S2, rhythm rate regular Respiratory: Lung sounds clear anteriorly and posteriorly, no wheezes rhonchi rales noted Extremities: Trace nonpitting edema bilateral lower leg AV fistula left arm has good bruit and thrill Assessment & Plan Assessment/Plan (1) ESRD (end stage renal disease): PLAN: -She is currently dialyzes on a Saturday schedule at [facility], last dialyzed yesterday (off schedule due to heart cath earlier this week). -The patient was dialyzed yesterday and on her regular schedule. -No need for dialysis today. -Okay from nephrology standpoint for discharge. (2) GI bleed: QUALIFIERS: GI bleed type/associated pathology: unspecified gastrointestinal hemorrhage type Qualified Code(s): K92.2 - Gastrointestinal hemorrhage, unspecified PLAN: -The patient was scoped yesterday by GI. -2 angiodysplastic lesions were found in the duodenum which was treated with argon plasma. -No signs of bleeding since then. Hemoglobin is stable. -The patient is on pantoprazole drip. (3) Anemia in chronic kidney disease: PLAN: -We will continue SHAYE at dialysis unit. -We will continue to monitor hemoglobin at dialysis unit if the patient is discharged today. (4) Liver cirrhosis secondary to HOFFMAN:
[2021-05-02 10:16] LABS: Pathologist Review Reviewed
== END 2021-04-29 11:25 | disposition home or self-care (01) | DRG 377 ==
LOC: ED 07:52 → PCU 08:52
PROVIDERS: Internal Medicine Gastroenterology; Admitting Provider Internal Medicine; Emergency Provider Emergency Medicine; PCP Internal Medicine; Visit Provider Internal Medicine
PROC: 0DJ08ZZ Inspection of Upper Intestinal Tract, Via Natural or Artificial Opening Endoscopic (ICD-10-PCS; CPT 43235; principal; 2021-04-28 16:25)
DX: K31.811 Angiodysplasia of stomach and duodenum with bleeding (principal); N18.6 End stage renal disease; D61.818 Other pancytopenia; I13.2 Hypertensive heart and chronic kidney disease with heart failure and with stage 5 chronic kidney disease, or end stage renal disease; D62 Acute posthemorrhagic anemia; I50.32 Chronic diastolic (congestive) heart failure; Z68.41 Body mass index [BMI] 40.0-44.9, adult; Z94.4 Liver transplant status; E11.649 Type 2 diabetes mellitus with hypoglycemia 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; D63.1 Anemia in chronic kidney disease; E11.22 Type 2 diabetes mellitus with diabetic chronic kidney disease; K74.60 Unspecified cirrhosis of liver; E11.65 Type 2 diabetes mellitus with hyperglycemia; J44.9 Chronic obstructive pulmonary disease, unspecified; Z79.4 Long term (current) use of insulin; Z99.2 Dependence on renal dialysis; E66.01 Morbid (severe) obesity due to excess calories; K62.5 Hemorrhage of anus and rectum; G47.33 Obstructive sleep apnea (adult) (pediatric); I25.10 Atherosclerotic heart disease of native coronary artery without angina pectoris; F41.9 Anxiety disorder, unspecified; K75.81 Nonalcoholic steatohepatitis (NASH); I95.1 Orthostatic hypotension; I89.0 Lymphedema, not elsewhere classified; I44.7 Left bundle-branch block, unspecified; F32.A Depression, unspecified; Z91.19 Patient's noncompliance with other medical treatment and regimen; Z95.5 Presence of coronary angioplasty implant and graft; Z79.02 Long term (current) use of antithrombotics/antiplatelets; Z79.82 Long term (current) use of aspirin; Z79.899 Other long term (current) drug therapy
CPT/HCPCS: 36415; 74176; 80048; 82274; 82962; 83605; 83735; 84100; 85014; 85018; 85025; 85610; 85730; 86850; 86900; 86901; 86920; 86922; 87426; 90937; 93005; 99251; 99284; J7120; A4216; G0257; G0463; J3490

== ENCOUNTER 2021-08-11 19:17 | Emergency (ER) | payer MEDICARE, MEDICAID, SELFPAY ==
[2021-08-11 19:18] VITALS: BP 131/51; PULSE 88; RESP 22; TEMP 37.7; O2SAT 98; BMI 39.9
[2021-08-11 19:20] VITALS: BP 110/51; PULSE 82; RESP 20; TEMP 37.6; O2SAT 96
--- NOTE | 2021-08-11 20:49 | EKG12_ITS ---
Test Reason : DYSRHYTHMIA Blood Pressure : / mmHG Vent. Rate : 080 BPM Atrial Rate : 080 BPM P-R Int : 212 ms QRS Dur : 132 ms QT Int : 442 ms P-R-T Axes : 034 -36 004 degrees QTc Int : 509 ms Sinus rhythm with 1st degree A-V block Left axis deviation Left bundle branch block Abnormal ECG Confirmed by CHRISTAL FOFANA, ARMANDO ([id number]), index editor STEPHANIE PHAM ([id number]) on 08/14/2021 10:50:08 AM Referred By: EUN Confirmed By:ARMANDO SIEGEL MD
--- NOTE | 2021-08-11 20:51 | EX.ED.DYSGE1 ---
HPI History of Present Illness Chief Complaint: Fever Informant: patient Onset/Context/Timing Onset: Today Current Severity: Mild Maximum Severity: Moderate Narrative Narrative: Patient presents secondary to body aches and fever. She states symptoms started today. When she checked her temperature on her forehead it was reading 105. Highest oral temperature she got was 101. She did take Tylenol just over an hour prior to arrival. She denies shortness of breath or cough. She did develop some diarrhea this evening. She is normally on dialysis Saturday, Saturday, and Saturday. She canceled her appointment and is scheduled to go tomorrow. They requested she come in for a COVID test. [facility] Medical History Anemia Anemia in chronic kidney disease Back pain Blister Cancer Cardiology follow-up encounter Celiac disease Chronic kidney disease, stage 3 Chronic kidney failure Chronic renal failure, stage 4 (severe) Chronic renal failure, stage 5 COPD (chronic obstructive pulmonary disease) CPAP (continuous positive airway pressure) dependence Diabetes DVT (deep venous thrombosis) ESRD (end stage renal disease) Gastric reflux GERD (gastroesophageal reflux disease) History of echocardiogram (~01/22/20) History of edema History of irregular heartbeat History of renal disease History of stress test (~12/07/19) History of uterine cancer Hx of Krueger's palsy Hypertension Infection involving suture with abscess Insulin dependent diabetes mellitus [employer] Pancytopenia Sleep apnea Wears dentures Wears glasses Home Medications ascorbic acid (vitamin C) 1,000 mg PO DAILY 02/20/15 [History Last Taken 09/09/19] cholecalciferol (vitamin D3) 1,000 unit PO BID 02/20/15 [History Last Taken 09/09/19] atorvastatin 10 mg PO QHS 10/19/16 [History Last Taken 09/09/19] insulin aspart U-100 [Novolog Flexpen U-100 Insulin] 20 units SC TIDCM 05/29/18 [History Last Taken 09/09/19] insulin glargine [Lantus Solostar U-100 Insulin] 50 unit SQ BID 05/29/18 [History Last Taken 09/09/19] tacrolimus [Prograf] 0.5 mg PO BID 09/10/19 [History Last Taken 04/27/21] trazodone 200 mg PO QHS 09/10/19 [History Last Taken 09/09/19] vitamin B complex 1 tablet PO DAILY 09/10/19 [History Last Taken 09/09/19] albuterol sulfate 2 puff IH Q4H PRN PRN 02/25/20 [History Last Taken Unknown] carvedilol 12.5 mg PO BID 02/25/20 [History Last Taken 08/03/20] epoetin marco-epbx 40,000 unit/mL injection solution 20,000 unit SC .QOWEEK 05/23/20 [History Last Taken Unknown] hydroxyzine HCl 25 mg tablet 25 mg PO BID PRN 05/23/20 [History Last Taken Unknown] levothyroxine 25 mcg tablet 88 mcg PO DAILY tablet 05/23/20 [History Last Taken 04/28/21] ropinirole 1 mg tablet 1 mg PO .QAM tablet 05/23/20 [History Last Taken 06/16/20] torsemide 20 mg tablet 60 mg PO DAILY tablet 05/23/20 [History Last Taken Unknown] ropinirole 2 mg PO QHS 06/10/20 [History Last Taken Unknown] sevelamer carbonate [Renvela] 800 mg PO TID 06/10/20 [History Last Taken Unknown] hydrocodone-acetaminophen 1 tab PO Q8H PRN 2 Days #6 tab 08/03/20 [Rx Last Taken Unknown] oxycodone-acetaminophen 1 tab PO Q6H PRN PRN 3 Days #12 tablet 12/08/20 [Rx Last Taken Unknown] clopidogrel [Plavix] 75 mg PO DAILY 04/28/21 [History Last Taken Unknown] aspirin [Ecotrin Low Strength] 81 mg PO DAILY #30 tab 04/29/21 [Rx Last Taken Unknown] ferrous sulfate 325 mg PO QODAY #30 tab 04/29/21 [Rx Last Taken Unknown] nitroglycerin 0.4 mg SUBLINGUAL Q5M PRN #30 tab 04/29/21 [Rx Last Taken Unknown] pantoprazole 40 mg PO BID #60 tab 04/29/21 [Rx Last Taken Unknown] biotin 1 mg PO DAILY 08/11/21 [History Last Taken Unknown] melatonin 3 mg PO QHS 08/11/21 [History Last Taken Unknown] sertraline [Zoloft] 50 mg PO DAILY 08/11/21 [History Last Taken Unknown] Allergy/AdvReac Type Severity Reaction Status Date / Time amlodipine [From Norvasc] Allergy Severe Hives Verified 04/28/21 05:37 ampicillin sodium Allergy Severe Hives Verified 04/28/21 05:37 [From Unasyn] buspirone HCl [From BuSpar] Allergy Severe Hives Verified 04/28/21 05:37 cefadroxil [From Duricef] Allergy Severe Hives Verified 04/28/21 05:37 lisinopril Allergy Severe Swelling Verified 04/28/21 05:37 naproxen Allergy Severe Hives Verified 04/28/21 05:37 niacin Allergy Severe Hives Verified 04/28/21 05:37 [From Niaspan Extended-Release] sulbactam sodium Allergy Severe Hives Verified 04/28/21 05:37 [From Unasyn] Sulfa (Sulfonamide Allergy Severe Hives Verified 04/28/21 05:37 Antibiotics) cephalexin [From Keflex] Allergy Hives Verified 04/28/21 05:37 omeprazole AdvReac Severe Other Verified 04/28/21 05:37 losartan AdvReac Swelling Verified 04/28/21 05:37 Family History Mother Diabetes Anemia Father Hypertension LUNG/RESPIRATORY DISEASE Surgical History History of cholecystectomy History of coronary artery stent placement History of left knee surgery History of left salpingo-oophorectomy History of liver transplant History of radical hysterectomy History of splenectomy History of ventral hernia repair S/P arteriovenous (AV) fistula creation (~06/16/20) Social History Smoking Status: Never smoker substance use type: does not use ROS ROS ED Constitutional Constitutional ED: Reports fever(s); Denies chills Eyes Eyes: Denies change in vision ENT ENT ED: Denies sore throat Cardiovascular Cardiovascular: Denies chest pain Respiratory/Chest Respiratory/Chest: Denies cough or dyspnea Gastrointestinal Gastrointestinal: Reports diarrhea; Denies abdominal pain, nausea or vomiting Genitourinary Genitourinary ED: Denies dysuria Musculoskeletal Musculoskeletal: Denies back pain Integumentary Denies rash Neurologic Neurologic: Reports headache(s); Denies weakness Allergic/Immunologic Allergic/Immunologic ED: Denies urticaria EXAM Physical Exam Const Vital Signs: 08/11/21 19:18 08/11/21 19:20 08/11/21 19:33 Temperature 99.8 F H 99.7 F H Temperature Source Temporal Temporal Pulse Rate 88 82 Respiratory Rate 22 H 20 H Respiratory Effort Normal Non-Labored Respiratory Pattern Normal Blood Pressure 131/51 H 110/51 L Blood Pressure Mean 77 70 Pulse Ox 98 96 Oxygen Delivery Method Room Air Room Air 08/11/21 21:04 Temperature 97.9 F Temperature Source Oral Pulse Rate 81 Respiratory Rate 18 Respiratory Effort Respiratory Pattern Blood Pressure 123/55 H Blood Pressure Mean 77 Pulse Ox 98 Oxygen Delivery Method Room Air Positive well nourished and well developed General Appearance ED: well developed HEENT Reports moist mucous membranes Eyes PERRL and EOMs intact bilaterally Neck supple Chest Wall inspection of chest normal and palpation of chest normal Resp normal respiratory effort and clear to auscultation bilaterally Cardio regular rate and regular rhythm GI non-tender Auscultation: hypoactive bowel sounds Palpation: soft Extremity Extremity Narrative: 3+ bilateral lower extremity edema. Neuro oriented x3 Sensorium / Orientation: alert Psych mental status grossly normal Skin no wounds MDM MDM MDM Narrative Medical decision making narrative: Patient was ordered COVID and influenza swab. These returned negative. Lidia to reevaluate her and inform her of the test results she now states that she is developing abdominal pain. Lab work and CT scan will be obtained. Lab Data Labs: Laboratory Results - last 24 hr 08/11/21 08/11/21 21:00 21:00 WBC 5.6 RBC 2.69 L Hgb 8.5 L Hct 27.0 L MCV 100.4 H MCH 31.6 MCHC 31.5 L RDW Std Deviation 70.2 H RDW Coeff of Tami 19.1 H Plt Count 63 L MPV 11.4 Immature Gran % (Auto) 0.900 Neut % (Auto) 85.9 H Lymph % (Auto) 7.1 L Josephine % (Auto) 5.2 Eos % (Auto) 0.7 Baso % (Auto) 0.2 Absolute Neuts (auto) 4.8 Absolute Lymphs (auto) 0.40 L Nucleated RBC % 0 Differential Comment SEE COMMENT Platelet Estimate MOD DEC RBC Morphology N CHROM Hypochromasia 1+ Anisocytosis 1+ Macrocytosis 1+ Sodium 132 L Potassium 5.5 H Chloride 95 L Carbon Dioxide 28.0 Anion Gap 9 BUN 48 H Creatinine 7.55 H* Estim Creat Clear Calc 6.77 Est GFR (MDRD) Af Amer 7 L Est GFR (MDRD) Non-Af 6 L BUN/Creatinine Ratio 6.4 L Glucose 193 H Calcium 8.6 Total Bilirubin 0.60 Direct Bilirubin 0.23 AST 26 ALT 42 Alkaline Phosphatase 93 Troponin I High Sens 25 Total Protein 6.2 L Albumin 2.7 L Globulin 3.5 Lipase 70 L Radiography Diagnostic Testing: Clinical Impression(s) from Imaging Studies Abdomen/Pelvis CT 08/11/21 21:10 IMPRESSION: Cirrhotic liver with evidence of portal hypertension including massive splenomegaly. Moderately sized fat-containing left spigelian hernia. Electronically Signed: Kiko Holloway MD at 21:42 EDT , EKG Initial EKG: Attestation: I personally reviewed and interpreted this EKG as follows: Interpretation: Sinus Rhythm (Sinus at 80 with no acute ischemia.) Treatment and Re-Evaluation Narrative: Lab work reveals chronic changes. Hemoglobin 8.5. BUN and creatinine elevated at 48 and 7.55 respectively. LFTs and lipase are normal. Troponin is negative. Patient does not make much urine at all. CT scan of the flank obtained reveals chronic changes but no acute findings indicative of infection. Test results are discussed with the patient. She will continue supportive care at home. Discharge Plan Triage Chief Complaint: Fever ED Provider: Dian Daniel Dx/Rx/DC Orders Clinical Impression: Viral syndrome Instructions: ED Viral Syndrome (Adult) Prescriptions: No Action hydroxyzine HCl 25 mg tablet 25 mg PO BID PRN (Reason: Itching) RF: 0 Retacrit 40,000 unit/mL solution 20,000 unit SC .QOWEEK RF: 0 ascorbic acid (vitamin C) 500 MG tablet,chewable 1,000 mg PO DAILY RF: 0 cholecalciferol (vitamin D3) 1,000 UNIT tablet 1,000 unit PO BID RF: 0 levothyroxine 25 mcg tablet 88 mcg PO DAILY RF: 0 atorvastatin 10 MG tablet 10 mg PO QHS RF: 0 insulin aspart U-100 [Novolog Flexpen U-100 Insulin] 100 UNITS/ML insulin pen 20 units SC TIDCM RF: 0 insulin glargine [Lantus Solostar U-100 Insulin] 100 UNIT/ML insulin pen 50 unit SQ BID RF: 0 ropinirole 1 mg tablet 1 mg PO .QAM RF: 0 trazodone 150 MG tablet 200 mg PO QHS RF: 0 tacrolimus [Prograf] 1 MG capsule 0.5 mg PO BID RF: 0 vitamin B complex 1 EACH tablet 1 tablet PO DAILY RF: 0 torsemide 20 mg tablet 60 mg PO DAILY RF: 0 carvedilol 25 MG tablet 12.5 mg PO BID RF: 0 albuterol sulfate 1 PUFF inhaler 2 puff IH Q4H PRN PRN (Reason: Sob &/Or Wheezing) RF: 0 sevelamer carbonate [Renvela] 800 MG tablet 800 mg PO TID RF: 0 ropinirole 2 MG tablet extended release 24 hr 2 mg PO QHS RF: 0 hydrocodone-acetaminophen 5-325 mg tablet 1 tab PO Q8H PRN (Reason: pain) 2 Days Qty: 6 RF: 0 oxycodone-acetaminophen 1 TABLET tablet 1 tab PO Q6H PRN PRN (Reason: Pain) 3 Days Qty: 12 RF: 0 clopidogrel [Plavix] 75 mg Tablet 75 mg PO DAILY RF: 0 nitroglycerin 0.4 mg Tablet, Sublingual 0.4 mg sublingual Q5M PRN (Reason: Cardiac/Chest Pain) Qty: 30 RF: 0 pantoprazole 40 MG tablet,delayed release (DR/EC) 40 mg PO BID Qty: 60 RF: 2 aspirin [Ecotrin Low Strength] 81 mg tablet,delayed release (DR/EC) 81 mg PO DAILY Qty: 30 RF: 0 ferrous sulfate 325 mg (65 mg iron) tablet,delayed release (DR/EC) 325 mg PO QODAY Qty: 30 RF: 1 sertraline [Zoloft] 50 MG tablet 50 mg PO DAILY RF: 0 biotin 1 mg Capsule 1 mg PO DAILY RF: 0 melatonin 3 mg Tablet 3 mg PO QHS RF: 0 Primary Care Provider: Velia Archuleta Referrals: Velia Archuleta MD [Primary Care Provider] - 1 Week if not improving Disposition Disposition: Home, Self Care
[2021-08-11 21:04] VITALS: BP 123/55; PULSE 81; RESP 18; TEMP 36.6; O2SAT 98
--- NOTE | 2021-08-11 21:10 | CT_ITS ---
INDICATION: abd pain EXAMINATION: CT Abdomen And Pelvis W/O Contrast Injection TECHNIQUE: Helically acquired images were obtained of the abdomen and pelvis without the use of IV contrast. A radiation dose optimization technique was used for this scan. Oral contrast: None. COMPARISON: None FINDINGS: Evaluation of the solid organs and vascular structures is limited without intravenous contrast. Visualized lung bases: Trace pericardial effusion. Liver: Cirrhotic liver. Gallbladder: Surgically absent. Spleen: The spleen is markedly enlarged. Pancreas: Unremarkable Adrenal Glands: Unremarkable Kidneys: Bilateral renal atrophy. Vasculature: Mild scattered aortoiliac atherosclerotic calcifications. GI Tract: Unremarkable Lymphadenopathy: None Peritoneum: No ascites. Bladder: Collapsed. Reproductive organs: Unremarkable Bones/Soft tissues: Moderately sized fat-containing left spigelian hernia. Diffuse degenerative changes of the visualized spine. CT/Abdomen/Pelvis without Cont IMPRESSION: Cirrhotic liver with evidence of portal hypertension including massive splenomegaly. Moderately sized fat-containing left spigelian hernia. Electronically Signed: Kiko Holloway MD at 21:42 EDT ,
[2021-08-11 21:19] LABS: Absolute Neutrophil Count 4.8 X10^3/uL (2.0-7.7); Basophil# 0.01 X10^3/uL; Basophil% 0.2 % (0-1); Eosinophil# 0.04 X10^3/uL; Eosinophils% 0.7 % (0-5); Hemoglobin 8.5 g/dL (12.0-15.0); Lymphocyte % 7.1 % (19-41); Mean Corp Hgb Conc 31.5 g/dL (32-36); Mean Corpuscular Hgb 31.6 pg (27.0-32.0); Mean Corpuscular Volume 100.4 fL (81-99); Mean Platelet Vol. 11.4 fl (6.2-12.0); Monocyte# 0.29 X10^3/uL; Monocyte% 5.2 % (0-10); NRBC Flagged by Analyzer 0 % (0-5); Neutrophil # 4.83 X10^3/uL (2.7-7.7); Neutrophil % 85.9 % (47-70); POSITIVE COUNT YES; POSITIVE DIFFERENTIAL YES; POSITIVE MORPHOLOGY YES; Platelet Count 63 K/mm3 (150-450); RBC Distribution Width CV 19.1 % (11.6-14.6); RBC Distribution Width SD 70.2 fl (35.1-43.9); Red Blood Count 2.69 M/mm3 (4.2-5.4); White Blood Count 5.6 K/mm3 (4.4-11.0)
[2021-08-11 21:35] LABS: Differential Indicated SCAN CRITERIA MET
[2021-08-11 21:45] LABS: Anisocytosis 1+; Hypochromasia 1+; Macrocytosis 1+; Platelet Estimate MOD DEC (ADEQ); Red Cell Morphology N CHROM NORMAL (NORM C&C)
[2021-08-11 21:54] LABS: AST(SGOT) 26 U/L (15-37); Alanine Aminotransfer ALT/SGPT 42 U/L (13-56); Albumin, Serum 2.7 g/dL (3.2-5.0); Alkaline Phosphatase 93 U/L (45-117); Anion Gap 9 (5-15); BUN 48 mg/dL (7-18); BUN/Creat Ratio 6.4 RATIO (10-20); Bilirubin, Direct 0.23 mg/dL (0.00-0.30); Calcium,Total 8.6 mg/dL (8.5-10.1); Chloride 95 mmol/L (98-107); Creatinine, Serum 7.55 mg/dL (0.55-1.02); EST Glomerular Filtration Rate 6 mL/min (>60); Est Glom Filt Rate - Afr Amer 7 mL/min (>60); Estimated Creatinine Clearance 6.77 ml/min; Globulin 3.5 g/dL (2.2-4.2); Glucose 193 mg/dL (74-106); Lipase 70 U/L (73-393); Potassium 5.5 mmol/L (3.5-5.1); Protein, Total 6.2 g/dL (6.4-8.2); Sodium Level 132 mmol/L (136-145); Troponin-I HS 25 pg/mL (3.0-54.0)
[2021-08-11 22:22] VITALS: BP 115/58; PULSE 83; RESP 18; TEMP 36.7; O2SAT 100
== END 2021-08-11 22:23 | disposition home or self-care (01) ==
PROVIDERS: Emergency Provider Emergency Medicine; PCP Internal Medicine; Visit Provider Emergency Medicine
DX: B34.9 Viral infection, unspecified (principal); Z94.4 Liver transplant status; Z99.2 Dependence on renal dialysis; J44.9 Chronic obstructive pulmonary disease, unspecified; E11.22 Type 2 diabetes mellitus with diabetic chronic kidney disease; I12.0 Hypertensive chronic kidney disease with stage 5 chronic kidney disease or end stage renal disease; N18.6 End stage renal disease; Z79.4 Long term (current) use of insulin; D63.1 Anemia in chronic kidney disease; K21.9 Gastro-esophageal reflux disease without esophagitis; Z95.5 Presence of coronary angioplasty implant and graft; Z79.02 Long term (current) use of antithrombotics/antiplatelets; Z79.82 Long term (current) use of aspirin; Z79.899 Other long term (current) drug therapy
CPT/HCPCS: 74176; 80048; 80076; 83690; 84484; 85025; 87428; 93005; 99283; A4216

== ENCOUNTER 2021-08-14 15:40 | Emergency (ER) | payer MEDICARE, MEDICAID, SELFPAY ==
[2021-08-14 15:42] VITALS: BP 147/66; PULSE 78; RESP 18; TEMP 36.5; O2SAT 97; BMI 39.3
--- NOTE | 2021-08-14 16:11 | EKG12_ITS ---
Test Reason : SYNCOPE Blood Pressure : / mmHG Vent. Rate : 073 BPM Atrial Rate : 073 BPM P-R Int : 192 ms QRS Dur : 136 ms QT Int : 452 ms P-R-T Axes : 069 -45 019 degrees QTc Int : 497 ms Normal sinus rhythm Left axis deviation Left bundle branch block Abnormal ECG Confirmed by ESTUARDO FOFANA, DAVE ([id number]), advertising editor STEPHANIE PHAM ([id number]) on 08/16/2021 9:51:20 AM Referred By: BB Confirmed By:DAVE MARTE MD
--- NOTE | 2021-08-14 16:12 | EDS_ITS ---
HPI History of Present Illness Chief Complaint: Syncope Informant: patient Onset/Context/Timing Onset: Today Context: Gradual Onset (Prodromal lightheadedness) Timing: Intermittent and Lasts (Once today) Quality: Lightheaded and then passed out while sitting in chair Current Severity: Gone Maximum Severity: Severe Worsened by: Nothing Relieved by: Nothing in particular Associated Symptoms Associated Symptoms: See below Narrative Narrative: Patient has been having fevers for the last 3 to 4 days. She was seen here in the ED on day #1, and was basically recommended for symptom control, her white blood count was in the fives and she had a negative rapid COVID test. She did not have blood cultures done, but yesterday she developed pain and redness with swelling in the right lower extremity. Distally in the lower leg and the foot, but another area lateral distal right thigh which hurts the most. She saw her doctor today Saturday, she had an outpatient DVT scan that was negative today here at the hospital, and was advised to come here because according to records that her doctor had I am septic. She states she is still having low-grade fevers. She has chronic dyspnea with exertion and no changes there, no coughing, she denies any new symptoms except for the right leg. She states he has a history of blood clots but also has a history of cellulitis although it has been a while, in her legs. She is a dialysis patient, hardly makes any urine, and she had her last treatment on Saturday decided to skip today because she felt poorly. [facility] Medical History Anemia Anemia in chronic kidney disease Back pain Blister Cancer Cardiology follow-up encounter Celiac disease Chronic kidney disease, stage 3 Chronic kidney failure Chronic renal failure, stage 4 (severe) Chronic renal failure, stage 5 COPD (chronic obstructive pulmonary disease) CPAP (continuous positive airway pressure) dependence Diabetes DVT (deep venous thrombosis) ESRD (end stage renal disease) Gastric reflux GERD (gastroesophageal reflux disease) History of echocardiogram (~01/22/20) History of edema History of irregular heartbeat History of renal disease History of stress test (~12/07/19) History of uterine cancer Hx of Krueger's palsy Hypertension Infection involving suture with abscess Insulin dependent diabetes mellitus [employer] Pancytopenia Sleep apnea Wears dentures Wears glasses Home Medications ascorbic acid (vitamin C) 1,000 mg PO DAILY 02/20/15 [History Last Taken 09/09/19] cholecalciferol (vitamin D3) 1,000 unit PO BID 02/20/15 [History Last Taken 09/09/19] atorvastatin 10 mg PO QHS 10/19/16 [History Last Taken 09/09/19] insulin aspart U-100 [Novolog Flexpen U-100 Insulin] 20 units SC TIDCM 05/29/18 [History Last Taken 09/09/19] insulin glargine [Lantus Solostar U-100 Insulin] 50 unit SQ BID 05/29/18 [History Last Taken 09/09/19] tacrolimus [Prograf] 0.5 mg PO BID 09/10/19 [History Last Taken 04/27/21] trazodone 200 mg PO QHS 09/10/19 [History Last Taken 09/09/19] vitamin B complex 1 tablet PO DAILY 09/10/19 [History Last Taken 09/09/19] albuterol sulfate 2 puff IH Q4H PRN PRN 02/25/20 [History Last Taken Unknown] carvedilol 12.5 mg PO BID 02/25/20 [History Last Taken 08/03/20] epoetin marco-epbx 40,000 unit/mL injection solution 20,000 unit SC .QOWEEK 05/23/20 [History Last Taken Unknown] hydroxyzine HCl 25 mg tablet 25 mg PO BID PRN 05/23/20 [History Last Taken Unknown] levothyroxine 25 mcg tablet 88 mcg PO DAILY tablet 05/23/20 [History Last Taken 04/28/21] ropinirole 1 mg tablet 1 mg PO .QAM tablet 05/23/20 [History Last Taken 06/16/20] torsemide 20 mg tablet 60 mg PO DAILY tablet 05/23/20 [History Last Taken Unknown] ropinirole 2 mg PO QHS 06/10/20 [History Last Taken Unknown] sevelamer carbonate [Renvela] 800 mg PO TID 06/10/20 [History Last Taken Unknown] hydrocodone-acetaminophen 1 tab PO Q8H PRN 2 Days #6 tab 08/03/20 [Rx Last Taken Unknown] oxycodone-acetaminophen 1 tab PO Q6H PRN PRN 3 Days #12 tablet 12/08/20 [Rx Last Taken Unknown] clopidogrel [Plavix] 75 mg PO DAILY 04/28/21 [History Last Taken Unknown] aspirin [Ecotrin Low Strength] 81 mg PO DAILY #30 tab 04/29/21 [Rx Last Taken Unknown] ferrous sulfate 325 mg PO QODAY #30 tab 04/29/21 [Rx Last Taken Unknown] nitroglycerin 0.4 mg SUBLINGUAL Q5M PRN #30 tab 04/29/21 [Rx Last Taken Unknown] pantoprazole 40 mg PO BID #60 tab 04/29/21 [Rx Last Taken Unknown] biotin 1 mg PO DAILY 08/11/21 [History Last Taken Unknown] melatonin 3 mg PO QHS 08/11/21 [History Last Taken Unknown] sertraline [Zoloft] 50 mg PO DAILY 08/11/21 [History Last Taken Unknown] doxycycline monohydrate 100 mg PO BID #20 capsule 08/14/21 [Rx Last Taken Unknown] Allergy/AdvReac Type Severity Reaction Status Date / Time amlodipine [From Norvasc] Allergy Severe Hives Verified 08/14/21 15:41 ampicillin sodium Allergy Severe Hives Verified 08/14/21 15:41 [From Unasyn] buspirone HCl [From BuSpar] Allergy Severe Hives Verified 08/14/21 15:41 cefadroxil [From Duricef] Allergy Severe Hives Verified 08/14/21 15:41 lisinopril Allergy Severe Swelling Verified 08/14/21 15:41 naproxen Allergy Severe Hives Verified 08/14/21 15:41 niacin Allergy Severe Hives Verified 08/14/21 15:41 [From Niaspan Extended-Release] sulbactam sodium Allergy Severe Hives Verified 08/14/21 15:41 [From Unasyn] Sulfa (Sulfonamide Allergy Severe Hives Verified 08/14/21 15:41 Antibiotics) cephalexin [From Keflex] Allergy Hives Verified 08/14/21 15:41 omeprazole AdvReac Severe Other Verified 08/14/21 15:41 losartan AdvReac Swelling Verified 08/14/21 15:41 Family History Mother Diabetes Anemia Father Hypertension LUNG/RESPIRATORY DISEASE Surgical History History of cholecystectomy History of coronary artery stent placement History of left knee surgery History of left salpingo-oophorectomy History of liver transplant History of radical hysterectomy History of splenectomy History of ventral hernia repair S/P arteriovenous (AV) fistula creation (~06/16/20) Social History Smoking Status: Never smoker substance use type: does not use ROS ROS ED Constitutional Constitutional ED: Reports fever(s) and malaise; Denies chills Eyes Eyes: Denies change in vision or diplopia ENT ENT ED: Denies rhinorrhea or sore throat Cardiovascular Cardiovascular: Reports pedal edema; Denies chest pain or palpitations Respiratory/Chest Respiratory/Chest: Reports dyspnea on exertion; Denies cough or dyspnea Gastrointestinal Gastrointestinal: Denies abdominal pain, diarrhea, nausea or vomiting Genitourinary Genitourinary ED: Denies dysuria or hematuria Musculoskeletal Musculoskeletal: Reports extremity pain; Denies back pain or neck pain Integumentary Denies abscess or rash Neurologic Neurologic: Denies headache(s), paresthesias or weakness Psychiatric Psychiatric: Denies anxiety or suicidal thoughts EXAM Physical Exam Const Vital Signs: 08/14/21 15:42 08/14/21 17:03 Temperature 97.7 F L 97.7 F L Temperature Source Temporal Temporal Pulse Rate 78 78 Respiratory Rate 18 18 Respiratory Effort Normal Non-Labored Blood Pressure 147/66 H 147/66 H Blood Pressure Mean 93 93 Pulse Ox 97 97 Oxygen Delivery Method Room Air Room Air Positive well nourished, well developed and obese Constitutional Narrative: Well-appearing, conversive in full sentences, using cell phone when I entered the room. General Appearance ED: well developed and NAD Nutritional Appearance: obese HEENT Reports moist mucous membranes normocephalic and atraumatic Eyes PERRL and EOMs intact bilaterally Neck full ROM and supple Resp normal respiratory effort and clear to auscultation bilaterally Effort and Inspection: able to speak in complete sentences Cardio regular rate, regular rhythm and no murmurs Rate: Negative for tachycardic GI non-tender and non-distended Auscultation: normoactive bowel sounds Palpation: soft Back/Spine no CVA tenderness General Back: other FROM Extremity Extremity Narrative: Patchy areas of erythema that is very tender in the right lower extremity worse in the distal lateral thigh. Not well-circumscribed, no palpable abscess or collection or obvious nidus for infection. Erythema is more mild distal lower leg and on the dorsum of the right forefoot and midfoot. Full range of motion all joints of the right lower extremity without difficulty, all compartments are soft and nondistended. No lymphangitis or inguinal lymphadenopathy. Palpable thrill left upper arm AV fistula General Extremety ED: Yes edema and tenderness; Negative for pulses abnormal General Extremity: edema bilateral lower extremity Details: mild (Worse on right); Negative for pulses abnormal Neuro oriented x3, CN's II-XII intact bilaterally and no sensory deficits noted Sensorium / Orientation: awake and alert Motor Exam: strength 5/5 throughout Skin no wounds Skin Narrative: Patchy cellulitis right lower leg/thigh, no lymphangitis, no abscess see above. No other areas of abnormality. MDM MDM MDM Narrative Medical decision making narrative: Patient appears to have cellulitis of right leg, unknown if this is the cause of her fevers or not since the fevers preceded the leg symptoms. I was not able to see any official report yet for the ult rasound of the right lower extremity she had earlier today, but I did discuss with ultrasound and they read the preliminary report to me that is otherwise unavailable to me, and it is all completely unremarkable. The patient states that they did run the ultrasound probe over the red area that is most symptomatic in her right lateral thigh, she remembers because it was painful. There were no collections noted from the ultrasound technicians preliminary report. Clinically I do not think there is an abscess here. Labs here show that her white blood count is 3.5, lower than it was several days ago. She did not have any blood cultures done during her other ER visit, I did some today, but her vital signs have been normal here, she looks well clinically, and her ancillaries argue against her being septic today or Saturday. I contacted the primary care office to see why they were concerned about her being septic, I was not able to speak with anyone, and we did not receive any faxes or notes on the patient although we requested them, so I am not sure why they were concerned although when staff called nurses there did say she was being sent here because of her leg primarily. I agree that her leg appears to be cellulitic. I empirically gave her IV vancomycin 50 mg/kg and we ran that in over 2 hours, and I started her on Doxy, she has treated her cellulitis successfully with that in the past and she does not tolerate cephalexin. At this time I see no reason to admit the patient to the hospital; on reevaluation 2 hours after I initially saw her, the cellulitis does not appear to have spread or become more prominent than it was during my first evaluation. She has no palpable subcutaneous emphysema and I do not think she has necrotizing fasciitis. I discussed all this with the patient she is comfortable with that plan, we discussed reasons to return, I would follow-up with her doctor, and she needs dialysis but her electrolytes are okay and she does not need an emergently; she is going to call the dialysis center and schedule that for tomorrow which I think is fine. We did discuss her anemia which is stable as well and she does not require transfusion at this time. Lab Data Attestation: I reviewed the patient's lab results. Labs: Laboratory Results - last 24 hr 08/14/21 08/14/21 08/14/21 16:30 16:30 16:30 WBC 3.5 L RBC 2.84 L Hgb 8.9 L Hct 28.4 L MCV 100.0 H MCH 31.3 MCHC 31.3 L RDW Std Deviation 67.9 H RDW Coeff of Tami 18.6 H Plt Count 80 L MPV 11.0 Immature Gran % (Auto) 2.900 H Neut % (Auto) 76.2 H Lymph % (Auto) 11.7 L [place] % (Auto) 6.0 Eos % (Auto) 2.6 Baso % (Auto) 0.6 Absolute Neuts (auto) 2.7 Absolute Lymphs (auto) 0.41 L Nucleated RBC % 0 Differential Comment SCANNED PT 13.6 INR 1.1 APTT 25.1 Sodium 133 L Potassium 4.7 Chloride 94 L Carbon Dioxide 30.0 Anion Gap 9 BUN 48 H Creatinine 7.49 H* Estim Creat Clear Calc 6.83 Est GFR (MDRD) Af Amer 7 L Est GFR (MDRD) Non-Af 6 L BUN/Creatinine Ratio 6.4 L Glucose 210 H Lactic Acid Calcium 8.9 Total Bilirubin 0.50 AST 32 ALT 34 Alkaline Phosphatase 100 Total Protein 7.0 Albumin 2.8 L Globulin 4.2 Albumin/Globulin Ratio 0.7 L 08/14/21 16:30 WBC RBC Hgb Hct MCV MCH MCHC RDW Std Deviation RDW Coeff of Tami Plt Count MPV Immature Gran % (Auto) Neut % (Auto) Lymph % (Auto) [place] % (Auto) Eos % (Auto) Baso % (Auto) Absolute Neuts (auto) Absolute Lymphs (auto) Nucleated RBC % Differential Comment PT INR APTT Sodium Potassium Chloride Carbon Dioxide Anion Gap BUN Creatinine Estim Creat Clear Calc Est GFR (MDRD) Af Amer Est GFR (MDRD) Non-Af BUN/Creatinine Ratio Glucose Lactic Acid 1.2 Calcium Total Bilirubin AST ALT Alkaline Phosphatase Total Protein Albumin Globulin Albumin/Globulin Ratio Radiography Chest X-Ray - ED: 1 View, Read by ED Physician and No Acute Disease Diagnostic Testing: Clinical Impression(s) from Imaging Studies Chest X-Ray 08/14/21 17:10 IMPRESSION: There are no acute findings. Electronically Signed: Adams Kevin MD at 17:22 EDT Reading Location ID and State: [facility] / [place] , Service support , Rhythm Strip Rhythm Strip: Sinus Rhythm Rate: 75 Ectopy: None EKG Initial EKG: Attestation: I personally reviewed and interpreted this EKG as follows: Interpretation: Sinus Rhythm, No Acute Injury Pattern and LBBB Prior EKG tracings: available for review Prior: Unchanged Discharge Plan Triage Chief Complaint: Syncope ED Provider: Charbel Thao Dx/Rx/DC Orders Clinical Impression: Cellulitis of right lower extremity, Chronic kidney disease with end stage renal failure on dialysis Instructions: ED Cellulitis Prescriptions: New doxycycline monohydrate 100 MG capsule 100 mg PO BID Qty: 20 RF: 0 No Action hydroxyzine HCl 25 mg tablet 25 mg PO BID PRN (Reason: Itching) RF: 0 Retacrit 40,000 unit/mL solution 20,000 unit SC .QOWEEK RF: 0 ascorbic acid (vitamin C) 500 MG tablet,chewable 1,000 mg PO DAILY RF: 0 cholecalciferol (vitamin D3) 1,000 UNIT tablet 1,000 unit PO BID RF: 0 levothyroxine 25 mcg tablet 88 mcg PO DAILY RF: 0 atorvastatin 10 MG tablet 10 mg PO QHS RF: 0 insulin aspart U-100 [Novolog Flexpen U-100 Insulin] 100 UNITS/ML insulin pen 20 units SC TIDCM RF: 0 insulin glargine [Lantus Solostar U-100 Insulin] 100 UNIT/ML insulin pen 50 unit SQ BID RF: 0 ropinirole 1 mg tablet 1 mg PO .QAM RF: 0 trazodone 150 MG tablet 200 mg PO QHS RF: 0 tacrolimus [Prograf] 1 MG capsule 0.5 mg PO BID RF: 0 vitamin B complex 1 EACH tablet 1 tablet PO DAILY RF: 0 torsemide 20 mg tablet 60 mg PO DAILY RF: 0 carvedilol 25 MG tablet 12.5 mg PO BID RF: 0 albuterol sulfate 1 PUFF inhaler 2 puff IH Q4H PRN PRN (Reason: Sob &/Or Wheezing) RF: 0 sevelamer carbonate [Renvela] 800 MG tablet 800 mg PO TID RF: 0 ropinirole 2 MG tablet extended release 24 hr 2 mg PO QHS RF: 0 hydrocodone-acetaminophen 5-325 mg tablet 1 tab PO Q8H PRN (Reason: pain) 2 Days Qty: 6 RF: 0 oxycodone-acetaminophen 1 TABLET tablet 1 tab PO Q6H PRN PRN (Reason: Pain) 3 Days Qty: 12 RF: 0 clopidogrel [Plavix] 75 mg Tablet 75 mg PO DAILY RF: 0 nitroglycerin 0.4 mg Tablet, Sublingual 0.4 mg sublingual Q5M PRN (Reason: Cardiac/Chest Pain) Qty: 30 RF: 0 pantoprazole 40 MG tablet,delayed release (DR/EC) 40 mg PO BID Qty: 60 RF: 2 aspirin [Ecotrin Low Strength] 81 mg tablet,delayed release (DR/EC) 81 mg PO DAILY Qty: 30 RF: 0 ferrous sulfate 325 mg (65 mg iron) tablet,delayed release (DR/EC) 325 mg PO QODAY Qty: 30 RF: 1 sertraline [Zoloft] 50 MG tablet 50 mg PO DAILY RF: 0 biotin 1 mg Capsule 1 mg PO DAILY RF: 0 melatonin 3 mg Tablet 3 mg PO QHS RF: 0 Primary Care Provider: Velia Archuleta Referrals: Velia Archuleta MD [Primary Care Provider] - 3-5 Days if not improving Activity Restrictions/Additional Instructions: Make sure you get dialyzed tomorrow as soon as possible Disposition Disposition: Home, Self Care
[2021-08-14 16:45] LABS: Absolute Lymphocyte Count 0.41 X10^3/uL (0.83-4.51); Absolute Neutrophil Count 2.7 X10^3/uL (2.0-7.7); Basophil# 0.02 X10^3/uL; Basophil% 0.6 % (0-1); Eosinophil# 0.09 X10^3/uL; Eosinophils% 2.6 % (0-5); Hematocrit 28.4 % (37-47); Hemoglobin 8.9 g/dL (12.0-15.0); Lymphocyte # 0.41 X10^3/ul (0.83-4.51); Lymphocyte % 11.7 % (19-41); Mean Corp Hgb Conc 31.3 g/dL (32-36); Mean Corpuscular Hgb 31.3 pg (27.0-32.0); Monocyte# 0.21 X10^3/uL; NRBC Flagged by Analyzer 0 % (0-5); Neutrophil # 2.66 X10^3/uL (2.7-7.7); Neutrophil % 76.2 % (47-70); POSITIVE COUNT YES; POSITIVE DIFFERENTIAL YES; POSITIVE MORPHOLOGY YES; Platelet Count 80 K/mm3 (150-450); RBC Distribution Width CV 18.6 % (11.6-14.6); RBC Distribution Width SD 67.9 fl (35.1-43.9); Red Blood Count 2.84 M/mm3 (4.2-5.4); White Blood Count 3.5 K/mm3 (4.4-11.0)
[2021-08-14 16:52] LABS: Differential Indicated SCAN CRITERIA MET
[2021-08-14 17:03] VITALS: BP 147/66; PULSE 78; RESP 18; TEMP 36.5; O2SAT 97
[2021-08-14 17:09] LABS: International Normalized Ratio 1.1; Prothrombin Time (Protime)PT. 13.6 SECONDS (11.7-14.9)
[2021-08-14 17:10] LABS: Partial Thromboplast Time 25.1 Seconds (24.1-36.2)
--- NOTE | 2021-08-14 17:10 | RAD_ITS ---
STUDY: XR Chest 1 View 08/14/2021 5:07 PM REASON FOR EXAM: Female, 66 years old. CHEST PAIN fever, IRIZARRY COMPARISON: None TECHNIQUE: XR Chest 1 View FINDINGS: There is no demonstrated pleural abnormality. Normal heart size. Normal mediastinum. Normal alvina. Prominent appearing increased interstitial lung markings. Normal visualized pulmonary arteries. There is atherosclerotic calcification of the aortic arch with tortuosity. There are diffuse degenerative changes of the visualized thoracic spine. There is degenerative osteoarthritis of the bilateral shoulders. There is no demonstrated abnormality of the visualized soft tissue structures of the upper abdomen. RAD/Chest 1 View (Portable) IMPRESSION: There are no acute findings. Electronically Signed: Adams Kevin MD at 17:22 EDT ,
[2021-08-14 17:23] LABS: Differential Comment SCANNED
[2021-08-14 17:29] LABS: ALB/GLOB Ratio 0.7 RATIO (0.9-2.4); AST(SGOT) 32 U/L (15-37); Alanine Aminotransfer ALT/SGPT 34 U/L (13-56); Albumin, Serum 2.8 g/dL (3.2-5.0); Alkaline Phosphatase 100 U/L (45-117); Anion Gap 9 (5-15); BUN 48 mg/dL (7-18); BUN/Creat Ratio 6.4 RATIO (10-20); Calcium,Total 8.9 mg/dL (8.5-10.1); Chloride 94 mmol/L (98-107); Creatinine, Serum 7.49 mg/dL (0.55-1.02); EST Glomerular Filtration Rate 6 mL/min (>60); Est Glom Filt Rate - Afr Amer 7 mL/min (>60); Estimated Creatinine Clearance 6.83 ml/min; Globulin 4.2 g/dL (2.2-4.2); Glucose 210 mg/dL (74-106); Potassium 4.7 mmol/L (3.5-5.1); Sodium Level 133 mmol/L (136-145)
[2021-08-14 17:33] LABS: Lactic Acid 1.2 mmol/L (0.4-1.9)
[2021-08-14 18:00] VITALS: BP 140/68; PULSE 73; RESP 16; TEMP 36.7; O2SAT 97
[2021-08-14 19:00] VITALS: PULSE 76; RESP 17; O2SAT 96
[2021-08-14] MEDS: Doxycycline 100 MG CAPSULE PO (19:10)
[2021-08-14 20:25] VITALS: BP 132/75; PULSE 69; RESP 18; O2SAT 97
[2021-08-15 13:10] LABS: Pathologist Review Reviewed
== END 2021-08-14 20:26 | disposition home or self-care (01) ==
PROVIDERS: Emergency Provider Emergency Medicine; PCP Internal Medicine; Visit Provider Emergency Medicine
DX: L03.115 Cellulitis of right lower limb (principal); Z94.4 Liver transplant status; Z99.2 Dependence on renal dialysis; J44.9 Chronic obstructive pulmonary disease, unspecified; E11.22 Type 2 diabetes mellitus with diabetic chronic kidney disease; I12.0 Hypertensive chronic kidney disease with stage 5 chronic kidney disease or end stage renal disease; N18.6 End stage renal disease; Z79.4 Long term (current) use of insulin; E66.9 Obesity, unspecified; D63.1 Anemia in chronic kidney disease; K21.9 Gastro-esophageal reflux disease without esophagitis; Z95.5 Presence of coronary angioplasty implant and graft; Z79.02 Long term (current) use of antithrombotics/antiplatelets; Z79.82 Long term (current) use of aspirin; Z79.899 Other long term (current) drug therapy
CPT/HCPCS: 71045; 80053; 83605; 85025; 85610; 85730; 87040; 87811; 93005; 93971; 96365; 96366; 99285; J7040; J7050; A4216

== ENCOUNTER → 2021-08-14 | Outpatient (CLI) | payer MEDICARE, MEDICAID, SELFPAY ==
--- NOTE | 2021-08-14 15:05 | VDLE_ITS ---
Reason For Study: Redness and swelling RIGHT GSV is normal. CFV is compressible, spontaneous, phasic, competent and demonstrates normal augmentation. FV is compressible, spontaneous, phasic, competent and demonstrates normal augmentation. POP V is compressible, spontaneous, phasic, competent and demonstrates normal augmentation. T/P Trunk is compressible. PTV is compressible. RT PerV is compressible. Procedure This is a venous duplex using B-mode, color flow and spectral Doppler. Exam performed in department. A preliminary report was called and/or faxed to [facility]. VL/Venous Duplex US, Unilateral Interpretation Summary Deep veins of the right lower extremity are patent and compressible segmentally . There is no evidence of right lower extremity deep vein thrombosis. Valvular competence heather ears intact within the proximal deep venous system on the right . The right great saphenous vein a ppears patent and compressible segmentally. Ordering Physician: Velia Archuleta Referring Physician: Velia Archuleta Performed By: Christine Shen RVT
== END | disposition home or self-care (01) ==
PROVIDERS: PCP Internal Medicine; Visit Provider Internal Medicine
DX: M79.89 Other specified soft tissue disorders (principal)
CPT/HCPCS: 93971

== ENCOUNTER 2021-09-11 23:30 | Emergency (ER) | payer MEDICARE, MEDICAID, SELFPAY ==
[2021-09-11 23:31] VITALS: BP 147/54; PULSE 85; RESP 16; TEMP 36.8; O2SAT 98; BMI 41.5
--- NOTE | 2021-09-12 00:05 | RAD_ITS ---
STUDY: X-RAY CHEST REASON FOR EXAM: Female, 66 years old. cough TECHNIQUE: Single AP portable view of the chest. COMPARISON: 08/14/2021 FINDINGS: The lungs are clear and expanded. There is no demonstrated pleural abnormality. Normal size heart. Normal mediastinum and alvina. Normal visualized pulmonary arteries. Normal visualized aortic arch and descending thoracic aorta. Normal visualized thoracic spine. Normal visualized ribs, clavicles, and shoulders. There is no demonstrated abnormality of the visualized soft tissue structures of the upper abdomen. RAD/Chest 1 View (Portable) IMPRESSION: Normal x-ray examination of the chest. Electronically Signed: Robinson Ramey DO at 0:35 EDT ,
--- NOTE | 2021-09-12 00:05 | EX.ED.DYSGE1 ---
HPI History of Present Illness Chief Complaint: Hyperglycemia Narrative Narrative: Patient is a 66-year-old female with type 2 diabetes and chronic renal failure on dialysis. She states she has been taking her medication as directed but today noticed that her blood sugar is running high. She states that she checked her value and it was elevated so she took an extra dose of her fast acting insulin but then when she rechecked it a little while later it went up so this concerned her and she comes in for evaluation. The patient states that she has been taking her medications as directed and she denies any sick symptoms. [facility] Medical History Anemia Anemia in chronic kidney disease Back pain Blister Cancer Cardiology follow-up encounter Celiac disease Chronic kidney disease, stage 3 Chronic kidney failure Chronic renal failure, stage 4 (severe) Chronic renal failure, stage 5 COPD (chronic obstructive pulmonary disease) CPAP (continuous positive airway pressure) dependence Diabetes DVT (deep venous thrombosis) ESRD (end stage renal disease) Gastric reflux GERD (gastroesophageal reflux disease) History of echocardiogram (~01/22/20) History of edema History of irregular heartbeat History of renal disease History of stress test (~12/07/19) History of uterine cancer Hx of Krueger's palsy Hypertension Infection involving suture with abscess Insulin dependent diabetes mellitus [employer] Pancytopenia Sleep apnea Wears dentures Wears glasses Home Medications ascorbic acid (vitamin C) 500 mg chewable tablet 1,000 mg PO DAILY supplement 02/20/15 [History Last Taken 09/09/19] cholecalciferol (vitamin D3) 25 mcg (1,000 unit) tablet 1,000 unit PO BID supplement 02/20/15 [History Last Taken 09/09/19] atorvastatin 10 mg tablet 10 mg PO QHS cholestrol 10/19/16 [History Last Taken 09/09/19] insulin aspart U-100 100 unit/mL (3 mL) subcutaneous pen (Novolog Flexpen U-100 Insulin aspart) 20 units subcut TIDCM blood sugar 05/29/18 [History Last Taken 09/09/19] insulin glargine 100 unit/mL (3 mL) subcutaneous pen (Lantus Solostar U-100 Insulin) 50 unit SQ BID blood sugar 05/29/18 [History Last Taken 09/09/19] tacrolimus 1 mg capsule, immediate-release (Prograf) 0.5 mg PO BID REJECTION 09/10/19 [History Last Taken 04/27/21] trazodone 150 mg tablet 200 mg PO QHS SLEEP 09/10/19 [History Last Taken 09/09/19] vitamin B complex 1 tablet PO DAILY SUPPLEMENT 09/10/19 [History Last Taken 09/09/19] albuterol sulfate 90 mcg/actuation aerosol inhaler 2 puff IH Q4H PRN PRN Sob &/Or Wheezing 02/25/20 [History Last Taken Unknown] carvedilol 25 mg tablet 12.5 mg PO BID heart 02/25/20 [History Last Taken 08/03/20] epoetin marco-epbx 40,000 unit/mL injection solution (Retacrit) 20,000 unit subcut .QOWEEK 05/23/20 [History Last Taken Unknown] hydroxyzine HCl 25 mg tablet 25 mg PO BID PRN Itching 05/23/20 [History Last Taken Unknown] levothyroxine 25 mcg tablet 88 mcg PO DAILY thyroid 05/23/20 [History Last Taken 04/28/21] ropinirole 1 mg tablet 1 mg PO .QAM 05/23/20 [History Last Taken 06/16/20] torsemide 20 mg tablet 60 mg PO DAILY FLUID 05/23/20 [History Last Taken Unknown] ropinirole 2 mg tablet,extended release 24 hr 2 mg PO QHS 06/10/20 [History Last Taken Unknown] sevelamer carbonate 800 mg tablet (Renvela) 800 mg PO TID 06/10/20 [History Last Taken Unknown] hydrocodone-acetaminophen 5-325mg 5mg-325mg 1 tab PO Q8H PRN pain 2 days #6 tabs 08/03/20 [Rx Last Taken Unknown] oxycodone-acetaminophen 5 mg-325 mg tablet 1 tab PO Q6H PRN PRN Pain 3 days #12 TABLETS 12/08/20 [Rx Last Taken Unknown] clopidogrel 75 mg tablet (Plavix) 75 mg PO DAILY 04/28/21 [History Last Taken Unknown] aspirin 81 mg tablet,delayed release (Ecotrin Low Strength) 81 mg PO DAILY #30 tabs 04/29/21 [Rx Last Taken Unknown] ferrous sulfate 325 mg (65 mg iron) tablet,delayed release 325 mg PO QODAY #30 tabs 04/29/21 [Rx Last Taken Unknown] nitroglycerin 0.4 mg sublingual tablet 0.4 mg sublingual Q5M PRN Cardiac/Chest Pain #30 tabs 04/29/21 [Rx Last Taken Unknown] pantoprazole 40 mg tablet,delayed release 40 mg PO BID #60 tabs 04/29/21 [Rx Last Taken Unknown] biotin 1 mg capsule 1 mg PO DAILY 08/11/21 [History Last Taken Unknown] melatonin 3 mg tablet 3 mg PO QHS 08/11/21 [History Last Taken Unknown] sertraline 50 mg tablet (Zoloft) 50 mg PO DAILY mood 08/11/21 [History Last Taken Unknown] doxycycline monohydrate 100 mg capsule 100 mg PO BID #20 CAPSULES 08/14/21 [Rx Last Taken Unknown] Allergy/AdvReac Type Severity Reaction Status Date / Time amlodipine [From Norvasc] Allergy Severe Hives Verified 08/14/21 15:41 ampicillin sodium Allergy Severe Hives Verified 08/14/21 15:41 [From Unasyn] buspirone HCl [From BuSpar] Allergy Severe Hives Verified 08/14/21 15:41 cefadroxil [From Duricef] Allergy Severe Hives Verified 08/14/21 15:41 lisinopril Allergy Severe Swelling Verified 08/14/21 15:41 naproxen Allergy Severe Hives Verified 08/14/21 15:41 niacin Allergy Severe Hives Verified 08/14/21 15:41 [From Niaspan Extended-Release] sulbactam sodium Allergy Severe Hives Verified 08/14/21 15:41 [From Unasyn] Sulfa (Sulfonamide Allergy Severe Hives Verified 08/14/21 15:41 Antibiotics) cephalexin [From Keflex] Allergy Hives Verified 08/14/21 15:41 omeprazole AdvReac Severe Other Verified 08/14/21 15:41 losartan AdvReac Swelling Verified 08/14/21 15:41 Family History Mother Diabetes Anemia Father Hypertension LUNG/RESPIRATORY DISEASE Surgical History History of cholecystectomy History of coronary artery stent placement History of left knee surgery History of left salpingo-oophorectomy History of liver transplant History of radical hysterectomy History of splenectomy History of ventral hernia repair S/P arteriovenous (AV) fistula creation (~06/16/20) Social History Smoking Status: Never smoker substance use type: does not use ROS ROS ED Constitutional Constitutional ED: Denies chills or fever(s) Eyes Eyes: Denies change in vision ENT ENT ED: Denies sore throat Cardiovascular Cardiovascular: Denies chest pain Respiratory/Chest Respiratory/Chest: Denies cough or dyspnea Gastrointestinal Gastrointestinal: Reports nausea; Denies abdominal pain, diarrhea or vomiting Musculoskeletal Musculoskeletal: Denies myalgias Integumentary Denies rash Neurologic Neurologic: Denies headache(s) Hematologic/Lymphatic Hematologic/Lymphatic: Reports easy bleeding and easy bruising EXAM Physical Exam Const Vital Signs: 09/11/21 23:31 09/12/21 02:12 Temperature 98.3 F Temperature Source Temporal Pulse Rate 85 71 Respiratory Rate 16 16 Blood Pressure 147/54 H 137/65 H Blood Pressure Mean 85 Pulse Ox 98 99 Oxygen Delivery Method Room Air Positive well nourished, well developed and obese General Appearance ED: well developed Nutritional Appearance: obese HEENT Reports dry mucous membranes HEENT Narrative: No signs of infection in the posterior pharynx Mouth ED: Yes dry mucous membranes Mouth: dry mucous membranes Eyes PERRL and EOMs intact bilaterally Neck supple Resp normal respiratory effort and clear to auscultation bilaterally Cardio regular rate and regular rhythm GI normal to inspection, nondistended, normoactive bowel sounds, non-tender and non-distended GI Narrative: No voluntary guarding or rigidity no pulsatile mass or fluid wave Auscultation: normoactive bowel sounds Palpation: soft Extremity normal to inspection Extremity Narrative: Fistula present in the left upper arm with palpable thrill and good bruit Neuro oriented x3 and CN's II-XII intact bilaterally Sensorium / Orientation: alert Psych mental status grossly normal Skin no rashes or lesions noted Skin Narrative: No soft tissue changes to suggest infection MDM MDM MDM Narrative Medical decision making narrative: Patient presented to the ER afebrile awake alert and oriented with a nonfocal exam. Her blood sugar was checked upon arrival and is only mildly elevated at 281. This would correlate with the fact she took an extra dose of fast acting insulin prior to arrival. By exam she does not have signs of infection to suggest this is the cause of her hyperglycemia and she is not showing changes concerning for DKA. However because of the hyperglycemia I did elect to check for this. Patient has a normal anion gap and serum bicarb and her serum acetone is negative all going against DKA. Blood work shows chronic renal failure with creatinine at her baseline and chest x-ray and COVID swab are negative going against infectious process. The patient was hydrated and remained awake alert and oriented. At this time she is hyperglycemic but does not have secondary infection or DKA changes so therefore she is safe for discharge and can continue her normal medication as previously directed Lab Data Attestation: I reviewed the patient's lab results. Labs: Laboratory Results - last 24 hr 09/11/21 09/11/21 09/11/21 23:52 23:52 23:57 WBC 3.0 L RBC 3.05 L Hgb 9.6 L Hct 31.3 L MCV 102.6 H MCH 31.5 MCHC 30.7 L RDW Std Deviation 71.7 H RDW Coeff of Tami 19.2 H Plt Count 94 L MPV 11.8 Immature Gran % (Auto) 2.300 H Neut % (Auto) 70.3 H Lymph % (Auto) 14.9 L [place] % (Auto) 8.9 Eos % (Auto) 3.3 Baso % (Auto) 0.3 Absolute Neuts (auto) 2.1 Absolute Lymphs (auto) 0.45 L Nucleated RBC % 0 Diff Path Review May foll Platelet Estimate MOD DEC Anisocytosis 2+ Macrocytosis 1+ Sodium 134 L Potassium 4.8 Chloride 99 Carbon Dioxide 25.0 Anion Gap 10 BUN 27 H Creatinine 5.04 H Estim Creat Clear Calc 10.15 Est GFR (MDRD) Af Amer 11 L Est GFR (MDRD) Non-Af 9 L BUN/Creatinine Ratio 5.4 L Glucose 284 H Calcium 9.1 Acetone Level POC Glucose 282 H 09/12/21 00:13 WBC RBC Hgb Hct MCV MCH MCHC RDW Std Deviation RDW Coeff of Tami Plt Count MPV Immature Gran % (Auto) Neut % (Auto) Lymph % (Auto) [place] % (Auto) Eos % (Auto) Baso % (Auto) Absolute Neuts (auto) Absolute Lymphs (auto) Nucleated RBC % Diff Path Review Platelet Estimate Anisocytosis Macrocytosis Sodium Potassium Chloride Carbon Dioxide Anion Gap BUN Creatinine Estim Creat Clear Calc Est GFR (MDRD) Af Amer Est GFR (MDRD) Non-Af BUN/Creatinine Ratio Glucose Calcium Acetone Level NEGATIVE POC Glucose Radiography Diagnostic Testing: Clinical Impression(s) from Imaging Studies Chest X-Ray 09/12/21 00:05 IMPRESSION: Normal x-ray examination of the chest. Electronically Signed: Robinson Ramey DO at 0:35 EDT Reading Location ID and State: [facility] / [place] Tel , Service support , Chest x-ray as interpreted by the emergency medicine physician reveals no acute infiltrate pneumothorax or pleural effusion Discharge Plan Triage Chief Complaint: Hyperglycemia ED Provider: Chapincito Dougherty Dx/Rx/DC Orders Clinical Impression: Hyperglycemia, Chronic kidney failure Instructions: ED Diabetic Hyperglycemia Prescriptions: No Action hydroxyzine HCl 25 mg tablet 25 mg PO BID PRN (Reason: Itching) Retacrit 40,000 unit/mL solution 20,000 unit SC .QOWEEK ascorbic acid (vitamin C) 500 MG tablet,chewable 1,000 mg PO DAILY Label Comments: supplement cholecalciferol (vitamin D3) 1,000 UNIT tablet 1,000 unit PO BID Label Comments: bone health levothyroxine 25 mcg tablet 88 mcg PO DAILY atorvastatin 10 MG tablet 10 mg PO QHS insulin aspart U-100 [Novolog Flexpen U-100 Insulin] 100 UNITS/ML insulin pen 20 units SC TIDCM insulin glargine [Lantus Solostar U-100 Insulin] 100 UNIT/ML insulin pen 50 unit SQ BID ropinirole 1 mg tablet 1 mg PO .QAM trazodone 150 MG tablet 200 mg PO QHS tacrolimus [Prograf] 1 MG capsule 0.5 mg PO BID vitamin B complex 1 EACH tablet 1 tablet PO DAILY torsemide 20 mg tablet 60 mg PO DAILY carvedilol 25 MG tablet 12.5 mg PO BID albuterol sulfate 1 PUFF inhaler 2 puff IH Q4H PRN PRN (Reason: Sob &/Or Wheezing) Label Comments: Inhale 2 Puffs as instructed every 4 hours as needed for Wheezing/Shortness of Breath. sevelamer carbonate [Renvela] 800 MG tablet 800 mg PO TID ropinirole 2 MG tablet extended release 24 hr 2 mg PO QHS hydrocodone-acetaminophen 5-325 mg tablet 1 tab PO Q8H PRN (Reason: pain) 2 Days Qty: 6 0RF oxycodone-acetaminophen 1 TABLET tablet 1 tab PO Q6H PRN PRN (Reason: Pain) 3 Days Qty: 12 0RF clopidogrel [Plavix] 75 mg Tablet 75 mg PO DAILY nitroglycerin 0.4 mg Tablet, Sublingual 0.4 mg sublingual Q5M PRN (Reason: Cardiac/Chest Pain) Qty: 30 0RF pantoprazole 40 MG tablet,delayed release (DR/EC) 40 mg PO BID Qty: 60 2RF Rx Instructions: 40 mg twice daily for 8 weeks, that is 2 months aspirin [Ecotrin Low Strength] 81 mg tablet,delayed release (DR/EC) 81 mg PO DAILY Qty: 30 0RF Rx Instructions: Hold if patient gets GI bleed, rectal bleed or vomiting blood. Stop if any external bleeding Start from 04/30/2021 ferrous sulfate 325 mg (65 mg iron) tablet,delayed release (DR/EC) 325 mg PO QODAY Qty: 30 1RF sertraline [Zoloft] 50 MG tablet 50 mg PO DAILY Label Comments: depression biotin 1 mg Capsule 1 mg PO DAILY melatonin 3 mg Tablet 3 mg PO QHS doxycycline monohydrate 100 MG capsule 100 mg PO BID Qty: 20 0RF Primary Care Provider: Velia Archuleta Referrals: Velia Archuleta MD [Primary Care Provider] - Activity Restrictions/Additional Instructions: Please continue your medications as directed and return to the ER should you have any further concerns Disposition Disposition: Home, Self Care Discharge Date/Time: 09/12/21 02:14
[2021-09-12] MEDS: 0.9% Normal Saline 1,000 ML 999 ML IV (00:15)
[2021-09-12 00:16] LABS: Bedside Glucose 282 mg/dL (74-106)
[2021-09-12 00:19] LABS: Absolute Lymphocyte Count 0.45 X10^3/uL (0.83-4.51); Absolute Neutrophil Count 2.1 X10^3/uL (2.0-7.7); Basophil# 0.01 X10^3/uL; Basophil% 0.3 % (0-1); Eosinophils% 3.3 % (0-5); Hematocrit 31.3 % (37-47); Hemoglobin 9.6 g/dL (12.0-15.0); Lymphocyte # 0.45 X10^3/ul (0.83-4.51); Lymphocyte % 14.9 % (19-41); Mean Corp Hgb Conc 30.7 g/dL (32-36); Mean Corpuscular Hgb 31.5 pg (27.0-32.0); Mean Corpuscular Volume 102.6 fL (81-99); Mean Platelet Vol. 11.8 fl (6.2-12.0); Monocyte# 0.27 X10^3/uL; Monocyte% 8.9 % (0-10); NRBC Flagged by Analyzer 0 % (0-5); Neutrophil # 2.13 X10^3/uL (2.7-7.7); Neutrophil % 70.3 % (47-70); POSITIVE COUNT YES; POSITIVE DIFFERENTIAL YES; POSITIVE MORPHOLOGY YES; Platelet Count 94 K/mm3 (150-450); RBC Distribution Width CV 19.2 % (11.6-14.6); RBC Distribution Width SD 71.7 fl (35.1-43.9); Red Blood Count 3.05 M/mm3 (4.2-5.4)
[2021-09-12 00:25] LABS: Differential Indicated SCAN CRITERIA MET
[2021-09-12 00:44] LABS: Anisocytosis 2+; Macrocytosis 1+; Platelet Estimate MOD DEC (ADEQ)
[2021-09-12 01:13] LABS: Anion Gap 10 (5-15); BUN 27 mg/dL (7-18); BUN/Creat Ratio 5.4 RATIO (10-20); Calcium,Total 9.1 mg/dL (8.5-10.1); Chloride 99 mmol/L (98-107); Creatinine, Serum 5.04 mg/dL (0.55-1.02); EST Glomerular Filtration Rate 9 mL/min (>60); Est Glom Filt Rate - Afr Amer 11 mL/min (>60); Estimated Creatinine Clearance 10.15 ml/min; Glucose 284 mg/dL (74-106); Potassium 4.8 mmol/L (3.5-5.1); Sodium Level 134 mmol/L (136-145)
[2021-09-12 02:12] VITALS: BP 137/65; PULSE 71; RESP 16; O2SAT 99
[2021-09-13 07:20] LABS: Pathologist Review Reviewed
== END 2021-09-12 02:14 | disposition home or self-care (01) ==
PROVIDERS: Emergency Provider Emergency Medicine; PCP Internal Medicine; Visit Provider Emergency Medicine
DX: E11.65 Type 2 diabetes mellitus with hyperglycemia (principal); Z94.4 Liver transplant status; Z99.2 Dependence on renal dialysis; J44.9 Chronic obstructive pulmonary disease, unspecified; E11.22 Type 2 diabetes mellitus with diabetic chronic kidney disease; N18.6 End stage renal disease; I12.0 Hypertensive chronic kidney disease with stage 5 chronic kidney disease or end stage renal disease; Z68.41 Body mass index [BMI] 40.0-44.9, adult; Z79.4 Long term (current) use of insulin; D63.1 Anemia in chronic kidney disease; K21.9 Gastro-esophageal reflux disease without esophagitis; E66.9 Obesity, unspecified; Z95.5 Presence of coronary angioplasty implant and graft; Z79.02 Long term (current) use of antithrombotics/antiplatelets; Z79.82 Long term (current) use of aspirin; Z79.899 Other long term (current) drug therapy
CPT/HCPCS: 71045; 80048; 82009; 82962; 85025; 87428; 96360; 96361; 99282; J7030; A4216

== ENCOUNTER 2021-10-22 19:06 | Inpatient (IN) | payer MEDICARE, MEDICAID, SELFPAY ==
[2021-10-22] VITALS (8 sets, daily range): BP systolic 110–161; BP diastolic 56–66; PULSE 78–88; RESP 15–25; TEMP 35.9–36.6; O2SAT 93–100; BMI 42.4; BMI 42.3
--- NOTE | 2021-10-22 19:25 | EDS_ITS ---
HPI History of Present Illness Chief Complaint: GI Bleed Informant: patient Onset/Context/Timing Onset: Today Narrative Narrative: Patient presents secondary to blood in her stool. She states on she went underwent an ultrasound because she had some vaginal bleeding as well as some bleeding from her rectum when she wipes only. She does not know the reason results from this test. Today she developed diarrhea, passing dark brown liquid with blood streaks within it. She has a history of GI bleed and was admitted in April. She had 2 lesions in her duodenum that were lasered. Patient does have history of chronic renal failure. She normally has dialysis on Saturday, Saturday, Saturday. She missed her dialysis on Saturday secondary to other testing that she was having performed. [facility] Medical History Anemia Anemia in chronic kidney disease Back pain Blister Cancer Cardiology follow-up encounter Celiac disease Chronic kidney disease, stage 3 Chronic kidney failure Chronic renal failure, stage 4 (severe) Chronic renal failure, stage 5 COPD (chronic obstructive pulmonary disease) CPAP (continuous positive airway pressure) dependence Diabetes DVT (deep venous thrombosis) ESRD (end stage renal disease) Gastric reflux GERD (gastroesophageal reflux disease) History of echocardiogram (~01/22/20) History of edema History of irregular heartbeat History of renal disease History of stress test (~12/07/19) History of uterine cancer Hx of Krueger's palsy Hypertension Infection involving suture with abscess Insulin dependent diabetes mellitus [employer] Pancytopenia Sleep apnea Wears dentures Wears glasses Home Medications ascorbic acid (vitamin C) 500 mg chewable tablet 1,000 mg PO DAILY supplement 02/20/15 [History Last Taken 09/09/19] cholecalciferol (vitamin D3) 25 mcg (1,000 unit) tablet 1,000 unit PO BID supplement 02/20/15 [History Last Taken 09/09/19] atorvastatin 10 mg tablet 10 mg PO QHS cholestrol 10/19/16 [History Last Taken 09/09/19] insulin aspart U-100 100 unit/mL (3 mL) subcutaneous pen (Novolog Flexpen U-100 Insulin aspart) 20 units subcut TIDCM blood sugar 05/29/18 [History Last Taken 09/09/19] insulin glargine 100 unit/mL (3 mL) subcutaneous pen (Lantus Solostar U-100 Insulin) 50 unit SQ BID blood sugar 05/29/18 [History Last Taken 09/09/19] tacrolimus 1 mg capsule, immediate-release (Prograf) 0.5 mg PO BID REJECTION 09/10/19 [History Last Taken 04/27/21] trazodone 150 mg tablet 200 mg PO QHS SLEEP 09/10/19 [History Last Taken 09/09/19] vitamin B complex 1 tablet PO DAILY SUPPLEMENT 09/10/19 [History Last Taken 09/09/19] albuterol sulfate 90 mcg/actuation aerosol inhaler 2 puff IH Q4H PRN PRN Sob &/Or Wheezing 02/25/20 [History Last Taken Unknown] carvedilol 25 mg tablet 12.5 mg PO BID heart 02/25/20 [History Last Taken 08/03/20] hydroxyzine HCl 25 mg tablet 25 mg PO BID PRN Itching 05/23/20 [History Last Taken Unknown] levothyroxine 25 mcg tablet 88 mcg PO DAILY thyroid 05/23/20 [History Last Taken 04/28/21] ropinirole 1 mg tablet 1 mg PO .QAM 05/23/20 [History Last Taken 06/16/20] torsemide 20 mg tablet 60 mg PO DAILY FLUID 05/23/20 [History Last Taken Unknown] ropinirole 2 mg tablet,extended release 24 hr 2 mg PO QHS 06/10/20 [History Last Taken Unknown] sevelamer carbonate 800 mg tablet (Renvela) 800 mg PO TID 06/10/20 [History Last Taken Unknown] hydrocodone-acetaminophen 5-325mg 5mg-325mg 1 tab PO Q8H PRN pain 2 days #6 tabs 08/03/20 [Rx Last Taken Unknown] clopidogrel 75 mg tablet (Plavix) 75 mg PO DAILY 04/28/21 [History Last Taken Unknown] aspirin 81 mg tablet,delayed release (Ecotrin Low Strength) 81 mg PO DAILY #30 tabs 04/29/21 [Rx Last Taken Unknown] nitroglycerin 0.4 mg sublingual tablet 0.4 mg sublingual Q5M PRN Cardiac/Chest Pain #30 tabs 04/29/21 [Rx Last Taken Unknown] pantoprazole 40 mg tablet,delayed release 40 mg PO BID #60 tabs 04/29/21 [Rx Last Taken Unknown] biotin 1 mg capsule 1 mg PO DAILY 08/11/21 [History Last Taken Unknown] melatonin 3 mg tablet 2 mg PO QHS 08/11/21 [History Last Taken Unknown] sertraline 50 mg tablet (Zoloft) 50 mg PO DAILY mood 08/11/21 [History Last Taken Unknown] Allergy/AdvReac Type Severity Reaction Status Date / Time amlodipine [From Norvasc] Allergy Severe Hives Verified 10/22/21 19:18 ampicillin sodium Allergy Severe Hives Verified 10/22/21 19:18 [From Unasyn] buspirone HCl [From BuSpar] Allergy Severe Hives Verified 10/22/21 19:18 cefadroxil [From Duricef] Allergy Severe Hives Verified 10/22/21 19:18 lisinopril Allergy Severe Swelling Verified 10/22/21 19:18 naproxen Allergy Severe Hives Verified 10/22/21 19:18 niacin Allergy Severe Hives Verified 10/22/21 19:18 [From Niaspan Extended-Release] sulbactam sodium Allergy Severe Hives Verified 10/22/21 19:18 [From Unasyn] Sulfa (Sulfonamide Allergy Severe Hives Verified 10/22/21 19:18 Antibiotics) cephalexin [From Keflex] Allergy Hives Verified 10/22/21 19:18 omeprazole AdvReac Severe Other Verified 08/14/21 15:41 losartan AdvReac Swelling Verified 08/14/21 15:41 Family History Mother Diabetes Anemia Father Hypertension LUNG/RESPIRATORY DISEASE Surgical History History of cholecystectomy History of coronary artery stent placement History of left knee surgery History of left salpingo-oophorectomy History of liver transplant History of radical hysterectomy History of splenectomy History of ventral hernia repair S/P arteriovenous (AV) fistula creation (~06/16/20) Social History Smoking Status: Never smoker substance use type: does not use ROS ROS ED Constitutional Constitutional ED: Denies chills or fever(s) Eyes Eyes: Denies change in vision or discharge from eye(s) ENT ENT ED: Denies discharge from eye(s), rhinorrhea or sore throat Cardiovascular Cardiovascular: Denies chest pain or palpitations Respiratory/Chest Respiratory/Chest: Denies cough or dyspnea Gastrointestinal Gastrointestinal: Reports diarrhea; Denies abdominal pain, nausea or vomiting Genitourinary Genitourinary ED: Denies dysuria Musculoskeletal Musculoskeletal: Denies back pain or extremity pain Integumentary Denies Abrasions or rash Neurologic Neurologic: Denies headache(s) or weakness Allergic/Immunologic Allergic/Immunologic ED: Denies lip swelling or urticaria EXAM Physical Exam Const Vital Signs: 10/22/21 19:06 10/22/21 19:59 10/22/21 20:45 Temperature 96.7 F L Temperature Source Temporal Pulse Rate 88 78 79 Respiratory Rate 20 H 25 H 15 Blood Pressure 158/66 H 144/56 H 148/61 H Blood Pressure Mean 96 85 90 Pulse Ox 95 96 100 Oxygen Delivery Method Room Air Room Air Room Air Positive well nourished and well developed General Appearance ED: well developed HEENT Reports normocephalic and head/scalp atraumatic Eyes PERRL and EOMs intact bilaterally Neck supple Chest Wall inspection of chest normal and palpation of chest normal Resp normal respiratory effort and clear to auscultation bilaterally Cardio regular rate and regular rhythm GI normal to inspection, nondistended, normoactive bowel sounds Auscultation: normoactive bowel sounds Palpation: soft Extremity normal to inspection Neuro oriented x3 and no sensory deficits noted Sensorium / Orientation: alert Motor Exam: strength 5/5 throughout Psych mental status grossly normal Skin no rashes or lesions noted MDM MDM MDM Narrative Medical decision making narrative: Patient placed on manager monitoring. Lab work obtained as well as stool guaiac. Patient started on Protonix drip. Lab Data Attestation: I reviewed the patient's lab results. Labs: Laboratory Results - last 24 hr 10/22/21 10/22/21 10/22/21 19:30 19:30 19:30 WBC 3.4 L RBC 2.63 L Hgb 8.0 L Hct 25.3 L MCV 96.2 MCH 30.4 MCHC 31.6 L RDW Std Deviation 66.9 H RDW Coeff of Tami 18.9 H Plt Count 80 L MPV 11.1 Immature Gran % (Auto) 0.900 Neut % (Auto) 74.9 H Lymph % (Auto) 12.5 L [place] % (Auto) 7.2 Eos % (Auto) 4.2 Baso % (Auto) 0.3 Absolute Neuts (auto) 2.5 Absolute Lymphs (auto) 0.42 L Nucleated RBC % 0 Differential Comment SEE COMMENT Diff Path Review May foll Platelet Estimate MOD DEC RBC Morphology N CHROM Hypochromasia RARE Anisocytosis 1+ Macrocytosis 1+ PT 14.3 INR 1.1 APTT 31.8 Sodium 132 L Potassium 5.7 H Chloride 98 Carbon Dioxide 23.0 Anion Gap 11 BUN 91 H Creatinine 9.46 H* Estim Creat Clear Calc 5.41 Est GFR (MDRD) Af Amer 5 L Est GFR (MDRD) Non-Af 4 L BUN/Creatinine Ratio 9.6 L Glucose 153 H Calcium 8.4 L Total Bilirubin 0.80 Direct Bilirubin 0.26 AST 28 ALT 43 Alkaline Phosphatase 101 Total Protein 6.7 Albumin 2.9 L Globulin 3.8 EKG Initial EKG: Attestation: I personally reviewed and interpreted this EKG as follows: Interpretation: Sinus Rhythm (Sinus at 79 with left bundle branch block. Mild prominence of T waves in V3 and V4.) Treatment and Re-Evaluation Narrative: CBC reveals a hemoglobin of 8.0. Most recent hemoglobin is 9.6, however patient did miss dialysis and is holding extra fluid. Her platelet count is 80,000. This appears to be consistent with her baseline. Coags are unremarkable. Chemistry studies significant for potassium of 5.7. BUN is 91 and creatinine is 9.46. LFTs are unremarkable. EKG obtained and patient given albuterol along with insulin and glucose to help shift potassium intracellularly. Stool guaiac is positive. Patient discussed with Dr. Lerner as well as Dr. Strickland to help arrange dialysis. Discharge Plan Dx/Rx/DC Orders Clinical Impression: GI bleed, Hyperkalemia Disposition Disposition: Acute Care Hospital [facility]
[2021-10-22 19:47] LABS: Absolute Lymphocyte Count 0.42 X10^3/uL (0.83-4.51); Absolute Neutrophil Count 2.5 X10^3/uL (2.0-7.7); Basophil# 0.01 X10^3/uL; Basophil% 0.3 % (0-1); Eosinophil# 0.14 X10^3/uL; Eosinophils% 4.2 % (0-5); Hematocrit 25.3 % (37-47); Lymphocyte # 0.42 X10^3/ul (0.83-4.51); Lymphocyte % 12.5 % (19-41); Mean Corp Hgb Conc 31.6 g/dL (32-36); Mean Corpuscular Hgb 30.4 pg (27.0-32.0); Mean Corpuscular Volume 96.2 fL (81-99); Mean Platelet Vol. 11.1 fl (6.2-12.0); Monocyte# 0.24 X10^3/uL; Monocyte% 7.2 % (0-10); NRBC Flagged by Analyzer 0 % (0-5); Neutrophil # 2.51 X10^3/uL (2.7-7.7); Neutrophil % 74.9 % (47-70); POSITIVE COUNT YES; POSITIVE DIFFERENTIAL YES; POSITIVE MORPHOLOGY YES; Platelet Count 80 K/mm3 (150-450); RBC Distribution Width CV 18.9 % (11.6-14.6); RBC Distribution Width SD 66.9 fl (35.1-43.9); Red Blood Count 2.63 M/mm3 (4.2-5.4); White Blood Count 3.4 K/mm3 (4.4-11.0)
[2021-10-22 19:48] LABS: Differential Indicated SCAN CRITERIA MET
[2021-10-22 19:58] LABS: International Normalized Ratio 1.1; Prothrombin Time (Protime)PT. 14.3 SECONDS (11.7-14.9)
[2021-10-22 19:59] LABS: Partial Thromboplast Time 31.8 Seconds (24.1-36.2)
[2021-10-22 20:07] LABS: AST(SGOT) 28 U/L (15-37); Alanine Aminotransfer ALT/SGPT 43 U/L (13-56); Albumin, Serum 2.9 g/dL (3.2-5.0); Alkaline Phosphatase 101 U/L (45-117); Anion Gap 11 (5-15); BUN 91 mg/dL (7-18); BUN/Creat Ratio 9.6 RATIO (10-20); Bilirubin, Direct 0.26 mg/dL (0.00-0.30); Calcium,Total 8.4 mg/dL (8.5-10.1); Chloride 98 mmol/L (98-107); Creatinine, Serum 9.46 mg/dL (0.55-1.02); EST Glomerular Filtration Rate 4 mL/min (>60); Est Glom Filt Rate - Afr Amer 5 mL/min (>60); Estimated Creatinine Clearance 5.41 ml/min; Globulin 3.8 g/dL (2.2-4.2); Glucose 153 mg/dL (74-106); Potassium 5.7 mmol/L (3.5-5.1); Protein, Total 6.7 g/dL (6.4-8.2); Sodium Level 132 mmol/L (136-145)
--- NOTE | 2021-10-22 20:13 | EKG12_ITS ---
Test Reason : Blood Pressure : / mmHG Vent. Rate : 079 BPM Atrial Rate : 079 BPM P-R Int : 218 ms QRS Dur : 126 ms QT Int : 426 ms P-R-T Axes : 037 -42 028 degrees QTc Int : 488 ms Sinus rhythm with 1st degree A-V block Left axis deviation Left bundle branch block Abnormal ECG Confirmed by ESTUARDO FOFANA, DAVE ([id number]), video editor STEPHANIE PHAM ([id number]) on 10/25/2021 8:56:17 AM Referred By: Confirmed By:DAVE MARTE MD
[2021-10-22 20:28] LABS: Anisocytosis 1+; Platelet Estimate MOD DEC (ADEQ); Red Cell Morphology N CHROM NORMAL (NORM C&C)
[2021-10-22 20:29] LABS: Hypochromasia RARE; Macrocytosis 1+
[2021-10-22] MEDS: Insulin Lispro 10 UNIT in Syringe 0 ML 6 UNIT IV (20:38)
[2021-10-22] MEDS: Dextrose 50%-Water 25 GM/50 ML DISP.SYRIN IV (20:39)
[2021-10-22] MEDS: Albuterol *CONC* 2.5mg/0.5mL VIAL.NEB. 10 MG INHALATION (20:44)
--- NOTE | 2021-10-22 21:14 | HP.PCM.HOS_ITS ---
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 Reportedly every before presentation patient was having vaginal and rectal bleeding upon wiping. She continues to have rectal bleeding that was persistent on the day of presentation. However, she has not seen any further blood from her vaginal area. She reports nausea and diarrhea Two days before presentation she missed her dialysis because she went for vaginal ultrasound; and also because she was having diarrhea.. And on her previous dialysis treatments (before last scheduled dialysis) she had only 2 and half hours of treatment instead of her routine 4 hours. Her short dialysis session was because of diarrhea. Emergency plan doctor reports a guaiac positive test on rectal exams. In April 2021 the patient had upper GI bleed. EGD at that time showed 2 bleeding angiodysplasia for which patient had argon plasma coagulation. At the emergent department patient potassium was 5.7. [facility] Medical History Anemia Anemia in chronic kidney disease Back pain Blister Cancer Cardiology follow-up encounter Celiac disease Chronic kidney disease, stage 3 Chronic kidney failure Chronic renal failure, stage 4 (severe) Chronic renal failure, stage 5 Cirrhosis COPD (chronic obstructive pulmonary disease) CPAP (continuous positive airway pressure) dependence Diabetes Dialysis patient DVT (deep venous thrombosis) ESRD (end stage renal disease) Gastric reflux GERD (gastroesophageal reflux disease) History of echocardiogram (~01/22/20) History of edema History of irregular heartbeat History of renal disease History of stress test (~12/07/19) History of uterine cancer Hx of Krueger's palsy Hypertension Infection involving suture with abscess Insulin dependent diabetes mellitus [employer] Non-smoker Osteoporosis Pancytopenia Sleep apnea Wears dentures Wears glasses Home Medications ascorbic acid (vitamin C) 500 mg chewable tablet 1,000 mg PO DAILY supplement 02/20/15 [History Last Taken 09/09/19] cholecalciferol (vitamin D3) 25 mcg (1,000 unit) tablet 1,000 unit PO BID sup plement 02/20/15 [History Last Taken 09/09/19] atorvastatin 10 mg tablet 10 mg PO QHS cholestrol 10/19/16 [History Last Taken 09/09/19] insulin aspart U-100 100 unit/mL (3 mL) subcutaneous pen (Novolog Flexpen U-100 Insulin aspart) 22 units subcut 0800,1700 blood sugar 05/29/18 [History Last Taken 09/09/19] insulin glargine 100 unit/mL (3 mL) subcutaneous pen (Lantus Solostar U-100 Insulin) 60 unit SQ BID blood sugar 05/29/18 [History Last Taken 09/09/19] tacrolimus 1 mg capsule, immediate-release (Prograf) 0.5 mg PO BID REJECTION 09/10/19 [History Last Taken 04/27/21] trazodone 150 mg tablet 200 mg PO QHS SLEEP 09/10/19 [History Last Taken 09/09/19] vitamin B complex 1 tablet PO DAILY SUPPLEMENT 09/10/19 [History Last Taken 09/09/19] albuterol sulfate 90 mcg/actuation aerosol inhaler 2 puff IH Q4H PRN PRN Sob &/Or Wheezing 02/25/20 [History Last Taken Unknown] carvedilol 25 mg tablet 12.5 mg PO BID heart 02/25/20 [History Last Taken 08/03/20] hydroxyzine HCl 25 mg tablet 25 mg PO BID PRN Itching 05/23/20 [History Last Taken Unknown] levothyroxine 25 mcg tablet 88 mcg PO DAILY thyroid 05/23/20 [History Last Taken 04/28/21] ropinirole 1 mg tablet 1 mg PO .QAM 05/23/20 [History Last Taken 06/16/20] torsemide 20 mg tablet 60 mg PO DAILY FLUID 05/23/20 [History Last Taken Unknown] ropinirole 2 mg tablet,extended release 24 hr 2 mg PO QHS 06/10/20 [History Last Taken Unknown] sevelamer carbonate 800 mg tablet (Renvela) 800 mg PO TID 06/10/20 [History Last Taken Unknown] hydrocodone-acetaminophen 5-325mg 5mg-325mg 1 tab PO Q8H PRN pain 2 days #6 tabs 08/03/20 [Rx Last Taken Unknown] clopidogrel 75 mg tablet (Plavix) 75 mg PO DAILY 04/28/21 [History Last Taken Unknown] aspirin 81 mg tablet,delayed release (Ecotrin Low Strength) 81 mg PO DAILY #30 tabs 04/29/21 [Rx Last Taken Unknown] nitroglycerin 0.4 mg sublingual tablet 0.4 mg sublingual Q5M PRN Cardiac/Chest Pain #30 tabs 04/29/21 [Rx Last Taken Unknown] pantoprazole 40 mg tablet,delayed release 40 mg PO BID #60 tabs 04/29/21 [Rx Last Taken Unknown] biotin 1 mg capsule 1 mg PO DAILY 08/11/21 [History Last Taken Unknown] melatonin 3 mg tablet 10 mg PO QHS 08/11/21 [History Last Taken Unknown] sertraline 50 mg tablet (Zoloft) 50 mg PO DAILY mood 08/11/21 [History Last Taken Unknown] insulin aspart U-100 100 unit/mL (3 mL) subcutaneous pen 26 unit subcut 1200 diabetes 10/22/21 [History Last Taken Unknown] Allergy/AdvReac Type Severity Reaction Status Date / Time amlodipine [From Norvasc] Allergy Severe Hives Verified 10/22/21 19:18 ampicillin sodium Allergy Severe Hives Verified 10/22/21 19:18 [From Unasyn] buspirone HCl [From BuSpar] Allergy Severe Hives Verified 10/22/21 19:18 cefadroxil [From Duricef] Allergy Severe Hives Verified 10/22/21 19:18 lisinopril Allergy Severe Swelling Verified 10/22/21 19:18 naproxen Allergy Severe Hives Verified 10/22/21 19:18 niacin Allergy Severe Hives Verified 10/22/21 19:18 [From Niaspan Extended-Release] sulbactam sodium Allergy Severe Hives Verified 10/22/21 19:18 [From Unasyn] Sulfa (Sulfonamide Allergy Severe Hives Verified 10/22/21 19:18 Antibiotics) cephalexin [From Keflex] Allergy Hives Verified 10/22/21 19:18 omeprazole AdvReac Severe Other Verified 08/14/21 15:41 losartan AdvReac Swelling Verified 08/14/21 15:41 Family History Mother Diabetes Anemia Father Hypertension LUNG/RESPIRATORY DISEASE Surgical History History of appendectomy History of cholecystectomy History of coronary artery stent placement History of left knee surgery History of left salpingo-oophorectomy History of liver transplant History of radical hysterectomy History of ventral hernia repair S/P arteriovenous (AV) fistula creation (~06/16/20) Social History Smoking Status: Never smoker substance use type: does not use ROS ROS Narrative Pertinent positives and pertinent negatives as noted in HPI. All other systems were reviewed and are negative Vital Signs Vital Signs Vital Signs: 10/22/21 19:06 10/22/21 19:59 10/22/21 20:45 Temperature 96.7 F L Temperature Source Temporal Pulse Rate 88 78 79 Respiratory Rate 20 H 25 H 15 Respiratory Pattern Blood Pressure 158/66 H 144/56 H 148/61 H Blood Pressure Mean 96 85 90 Pulse Ox 95 96 100 Oxygen Delivery Method Room Air Room Air Room Air 10/22/21 20:51 10/22/21 21:03 Temperature 97.9 F Temperature Source Temporal Pulse Rate 81 84 Respiratory Rate 20 H 23 H Respiratory Pattern Tachypnea Blood Pressure 149/59 H Blood Pressure Mean 89 Pulse Ox 97 Oxygen Delivery Method Room Air Weight Weight: 115.6 kg Body Mass Index (BMI) 42.4 Physical Exam Narrative Physical exam: General: Well-nourished, well-developed. Head: Normocephalic, atraumatic, no tenderness Eyes: Vision is grossly intact. EOMI ENT, no trauma, moist mucous membranes, no rhinorrhea Neck: Nontender, full range of motion CVS: Regular rate and rhythm. S1-S2 present. No murmur, gallop or rub. Respiratory : clear to auscultation bilaterally, chest wall nontender, no wheezing Abdomen: Soft, nontender, nondistended, normal bowel sounds, no masses : Deferred Back: Nontender, no CVA tenderness, no midline spinal tenderness. Extremities: Nontender full range of motion, no trauma. 2-3+ bilateral lower extremity edema Skin: Normal color, no trauma, abrasions Neuro: Alert, oriented, cranial nerves II through XII grossly intact. Psychiatry: Normal mood. Normal affect. Not depressed. Not anxious. Results Lab / Micro Data Result Diagrams: 10/22/21 19:30 10/22/21 19:30 Labs: Laboratory Results - last 24 hr 10/22/21 19:30: WBC 3.4 L, RBC 2.63 L, Hgb 8.0 L, Hct 25.3 L, MCV 96.2, MCH 30.4, MCHC 31.6 L, RDW Std Deviation 66.9 H, RDW Coeff of Tami 18.9 H, Plt Count 80 L, MPV 11.1, Immature Gran % (Auto) 0.900, Neut % (Auto) 74.9 H, Lymph % (Auto) 12.5 L, [place] % (Auto) 7.2, Eos % (Auto) 4.2, Baso % (Auto) 0.3, Absolute Neuts (auto) 2.5, Absolute Lymphs (auto) 0.42 L, Nucleated RBC % 0, Differential Comment SEE COMMENT, Diff Path Review July samy, Platelet Estimate MOD DEC, RBC Morphology N CHROM, Hypochromasia RARE, Anisocytosis 1+, Macrocytosis 1+ 10/22/21 19:30: PT 14.3, INR 1.1, APTT 31.8 10/22/21 19:30: Sodium 132 L, Potassium 5.7 H, Chloride 98, Carbon Dioxide 23.0, Anion Gap 11, BUN 91 H, Creatinine 9.46 H*, Estim Creat Clear Calc 5.41, Est GFR (MDRD) Af Amer 5 L, Est GFR (MDRD) Non-Af 4 L, BUN/Creatinine Ratio 9.6 L, Glucose 153 H, Calcium 8.4 L, Total Bilirubin 0.80, Direct Bilirubin 0.26, AST 28, ALT 43, Alkaline Phosphatase 101, Total Protein 6.7, Albumin 2.9 L, Globulin 3.8 Micro: Microbiology 10/22/21 20:10 Stool Stool Occult Blood (TOMASZ) - Final Occult Blood Positive Assessment & Plan Assessment/Plan (1) Liver cirrhosis secondary to MORA: (2) ABLA (acute blood loss anemia): (3) Upper GI bleed: (4) Type 2 diabetes mellitus: PLAN: Plan Acute blood loss anemia secondary to upper GI bleed Hgb of 8.0 on presentation. His hemoglobin about 3 weeks ago was 9.6. Trend H&H Patient does have elevated BUN of 91. However patient missed dialysis. Started on Protonix drip at emergency department and continued. NPO after midnight on day of presentation GI Consult. CAD status post stent Stable With stent placed in April 2021 aspirin and Plavix continued. Diabetes mellitus Blood glucose on BMP 153. With dextrose and insulin (Hyperkalemia treatment at the ED) patient blood glucose dropped to 74 and per nurse patient was symptomatic with diaphoresis. Hold home basal insulin Monitor Accu-Cheks Correction scale insulin ordered. End-stage renal disease on dialysis On dialysis Fridays. Missed last dialysis before presentation. Nephrology consult Cardiac, renal and diabetic diet ordered. Diuretic continued Hyperkalemia Status post treatment at the emergency department. EKG appears unchanged. Observe at a progressive care unit. Trend BMP. MORA cirrhosis status post liver transplant Stable Tacrolimus continued. DVT prophylaxis: SCDs ordered. No chemical prophylaxis secondary to GI bleed Charges/Coding Visit Charges Inpatient E&M: 29763 Init Hosp L3
--- NOTE | 2021-10-22 21:20 | PCM.CONS.GEN ---
Assessment & Plan Assessment/Plan (1) GI bleed: PLAN: The differential diagnosis for an acute GI bleed in her would be lower GI bleeding secondary to diverticular bleed, hemorrhoidal bleeding, angiodysplastic lesions in the lower GI tract or neoplastic lesions. Also dual diagnosis would be upper GI bleed secondary to peptic ulcer disease, angiodysplastic lesions or small bowel bleed secondary to angiodysplastic lesions. She should undergo an EGD and colonoscopy for evaluation of her upper lower GI tract. HPI Consult Data Date of Consult: 10/22/21 HPI Narrative Reason for Consultation: GI bleeding HPI Narrative: CHRISTINA KUO, is a 66 F who presents secondary to blood in her stool.? 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 She presents here after developing abdominal pain in the mid epigastric area associated with multiple episodes of lower GI bleeding.? She recently underwent a stress test which was abnormal and resulted in a cardiac catheterization in which she underwent PTCA with 3 stents placed.? She is on aspirin and Plavix.? In the ED she was discovered to be normotensive and mildly tachycardic.? Her hemoglobin was 8. 5, platelet count 73 and white blood cell count of 2.9.? BUN/creatinine ratio is 27:2 0.5.? She does not make any urine.? She states on she went underwent an ultrasound because she had some vaginal bleeding as well as some bleeding from her rectum when she wipes only.? She does not know the reason results from this test.? Today she developed diarrhea, passing dark brown liquid with blood streaks within it.? She has a history of GI bleed and was admitted in April.? She had 2 lesions in her duodenum that were lasered. Patient does have history of chronic renal failure.? She normally has dialysis on Saturday, Saturday, Saturday.? She missed her dialysis on Saturday secondary to other testing that she was having performed. She underwent an upper endoscopy by myself several months ago and was discovered to have 2 bleeding Angiodysplastic lesions that were treated in her duodenum. I was consulted for GI bleed management. [facility] Medical History Anemia Anemia in chronic kidney disease Back pain Blister Cancer Cardiology follow-up encounter Celiac disease Chronic kidney disease, stage 3 Chronic kidney failure Chronic renal failure, stage 4 (severe) Chronic renal failure, stage 5 COPD (chronic obstructive pulmonary disease) CPAP (continuous positive airway pressure) dependence Diabetes DVT (deep venous thrombosis) ESRD (end stage renal disease) Gastric reflux GERD (gastroesophageal reflux disease) History of echocardiogram (~01/22/20) History of edema History of irregular heartbeat History of renal disease History of stress test (~12/07/19) History of uterine cancer Hx of Krueger's palsy Hypertension Infection involving suture with abscess Insulin dependent diabetes mellitus [employer] Pancytopenia Sleep apnea Wears dentures Wears glasses Home Medications ascorbic acid (vitamin C) 500 mg chewable tablet 1,000 mg PO DAILY supplement 02/20/15 [History Last Taken 09/09/19] cholecalciferol (vitamin D3) 25 mcg (1,000 unit) tablet 1,000 unit PO BID supplement 02/20/15 [History Last Taken 09/09/19] atorvastatin 10 mg tablet 10 mg PO QHS cholestrol 10/19/16 [History Last Taken 09/09/19] insulin aspart U-100 100 unit/mL (3 mL) subcutaneous pen (Novolog Flexpen U-100 Insulin aspart) 22 units subcut DAILY blood sugar 05/29/18 [History Last Taken 09/09/19] insulin glargine 100 unit/mL (3 mL) subcutaneous pen (Lantus Solostar U-100 Insulin) 60 unit SQ BID blood sugar 05/29/18 [History Last Taken 09/09/19] tacrolimus 1 mg capsule, immediate-release (Prograf) 0.5 mg PO BID REJECTION 09/10/19 [History Last Taken 04/27/21] trazodone 150 mg tablet 200 mg PO QHS SLEEP 09/10/19 [History Last Taken 09/09/19] vitamin B complex 1 tablet PO DAILY SUPPLEMENT 09/10/19 [History Last Taken 09/09/19] albuterol sulfate 90 mcg/actuation aerosol inhaler 2 puff IH Q4H PRN PRN Sob &/Or Wheezing 02/25/20 [History Last Taken Unknown] carvedilol 25 mg tablet 12.5 mg PO BID heart 02/25/20 [History Last Taken 08/03/20] hydroxyzine HCl 25 mg tablet 25 mg PO BID PRN Itching 05/23/20 [History Last Taken Unknown] levothyroxine 25 mcg tablet 88 mcg PO DAILY thyroid 05/23/20 [History Last Taken 04/28/21] ropinirole 1 mg tablet 1 mg PO .QAM 05/23/20 [History Last Taken 06/16/20] torsemide 20 mg tablet 60 mg PO DAILY FLUID 05/23/20 [History Last Taken Unknown] ropinirole 2 mg tablet,extended release 24 hr 2 mg PO QHS 06/10/20 [History Last Taken Unknown] sevelamer carbonate 800 mg tablet (Renvela) 800 mg PO TID 06/10/20 [History Last Taken Unknown] hydrocodone-acetaminophen 5-325mg 5mg-325mg 1 tab PO Q8H PRN pain 2 days #6 tabs 08/03/20 [Rx Last Taken Unknown] clopidogrel 75 mg tablet (Plavix) 75 mg PO DAILY 04/28/21 [History Last Taken Unknown] aspirin 81 mg tablet,delayed release (Ecotrin Low Strength) 81 mg PO DAILY #30 tabs 04/29/21 [Rx Last Taken Unknown] nitroglycerin 0.4 mg sublingual tablet 0.4 mg sublingual Q5M PRN Cardiac/Chest Pain #30 tabs 04/29/21 [Rx Last Taken Unknown] pantoprazole 40 mg tablet,delayed release 40 mg PO BID #60 tabs 04/29/21 [Rx Last Taken Unknown] biotin 1 mg capsule 1 mg PO DAILY 08/11/21 [History Last Taken Unknown] melatonin 3 mg tablet 2 mg PO QHS 08/11/21 [History Last Taken Unknown] sertraline 50 mg tablet (Zoloft) 50 mg PO DAILY mood 08/11/21 [History Last Taken Unknown] Allergy/AdvReac Type Severity Reaction Status Date / Time amlodipine [From Norvasc] Allergy Severe Hives Verified 10/22/21 19:18 ampicillin sodium Allergy Severe Hives Verified 10/22/21 19:18 [From Unasyn] buspirone HCl [From BuSpar] Allergy Severe Hives Verified 10/22/21 19:18 cefadroxil [From Duricef] Allergy Severe Hives Verified 10/22/21 19:18 lisinopril Allergy Severe Swelling Verified 10/22/21 19:18 naproxen Allergy Severe Hives Verified 10/22/21 19:18 niacin Allergy Severe Hives Verified 10/22/21 19:18 [From Niaspan Extended-Release] sulbactam sodium Allergy Severe Hives Verified 10/22/21 19:18 [From Unasyn] Sulfa (Sulfonamide Allergy Severe Hives Verified 10/22/21 19:18 Antibiotics) cephalexin [From Keflex] Allergy Hives Verified 10/22/21 19:18 omeprazole AdvReac Severe Other Verified 08/14/21 15:41 losartan AdvReac Swelling Verified 08/14/21 15:41 Family History Mother Diabetes Anemia Father Hypertension LUNG/RESPIRATORY DISEASE Surgical History History of cholecystectomy History of coronary artery stent placement History of left knee surgery History of left salpingo-oophorectomy History of liver transplant History of radical hysterectomy History of splenectomy History of ventral hernia repair S/P arteriovenous (AV) fistula creation (~06/16/20) Social History Smoking Status: Never smoker substance use type: does not use ROS Gastrointestinal Gastrointestinal: Reports abdominal pain and melena Physical Exam Narrative Const: Alert and oriented x3 HEENT: Head is normocephalic, oral mucosa is moist Cardiovascular: S1-S2, rhythm rate regular Respiratory: Lung sounds clear anteriorly and posteriorly, no wheezes rhonchi rales noted Extremities: Trace nonpitting edema bilateral lower leg AV fistula left arm has good bruit and thrill Lab / Micro Data Result Diagrams: 10/22/21 19:30 10/22/21 19:30 Labs: Laboratory Results - last 24 hr 10/22/21 19:30: WBC 3.4 L, RBC 2.63 L, Hgb 8.0 L, Hct 25.3 L, MCV 96.2, MCH 30.4, MCHC 31.6 L, RDW Std Deviation 66.9 H, RDW Coeff of Tami 18.9 H, Plt Count 80 L, MPV 11.1, Immature Gran % (Auto) 0.900, Neut % (Auto) 74.9 H, Lymph % (Auto) 12.5 L, [place] % (Auto) 7.2, Eos % (Auto) 4.2, Baso % (Auto) 0.3, Absolute Neuts (auto) 2.5, Absolute Lymphs (auto) 0.42 L, Nucleated RBC % 0, Differential Comment SEE COMMENT, Diff Path Review May foll, Platelet Estimate MOD DEC, RBC Morphology N CHROM, Hypochromasia RARE, Anisocytosis 1+, Macrocytosis 1+ 10/22/21 19:30: PT 14.3, INR 1.1, APTT 31.8 10/22/21 19:30: Sodium 132 L, Potassium 5.7 H, Chloride 98, Carbon Dioxide 23.0, Anion Gap 11, BUN 91 H, Creatinine 9.46 H*, Estim Creat Clear Calc 5.41, Est GFR (MDRD) Af Amer 5 L, Est GFR (MDRD) Non-Af 4 L, BUN/Creatinine Ratio 9.6 L, Glucose 153 H, Calcium 8.4 L, Total Bilirubin 0.80, Direct Bilirubin 0.26, AST 28, ALT 43, Alkaline Phosphatase 101, Total Protein 6.7, Albumin 2.9 L, Globulin 3.8 Micro: Microbiology 10/22/21 20:10 Stool Stool Occult Blood (TOMASZ) - Final Occult Blood Positive Charges/Coding Visit Charges Inpatient E&M: 43391 Init Hosp L2
[2021-10-22 22:30] LABS: Bedside Glucose 74 mg/dL (74-106)
[2021-10-22] MEDS: Carvedilol 12.5 MG Tablet PO (23:58)
[2021-10-22] MEDS: traZODone 100 MG Tablet 200 MG PO (23:58)
[2021-10-23] VITALS (15 sets, daily range): BP systolic 106–157; BP diastolic 50–71; PULSE 71–85; RESP 14–18; TEMP 36.3–36.9; O2SAT 94–99
[2021-10-23] MEDS: MELATONIN 10 MG TABLET PO ×2 (00:14→22:15)
[2021-10-23] MEDS: Pramipexole Di-HCl 1 MG Tablet PO ×2 (00:15→22:16)
[2021-10-23] MEDS: Atorvastatin Calcium 10 MG Tablet PO ×2 (00:16→22:15)
[2021-10-23] MEDS: Tacrolimus 0.5 MG Capsule PO ×3 (00:16→22:16)
[2021-10-23] MEDS: Cholecalciferol (VIT D3) 25 MCG TABLET (1,000 UNITS) PO ×3 (00:18→22:16)
[2021-10-23 02:09] LABS: Hematocrit 23.8 % (37-47); Hemoglobin 7.5 g/dL (12.0-15.0)
[2021-10-23 02:36] LABS: Anion Gap 11 (5-15); BUN 95 mg/dL (7-18); BUN/Creat Ratio 9.9 RATIO (10-20); Calcium,Total 8.3 mg/dL (8.5-10.1); Chloride 98 mmol/L (98-107); Creatinine, Serum 9.57 mg/dL (0.55-1.02); EST Glomerular Filtration Rate 4 mL/min (>60); Estimated Creatinine Clearance 5.34 ml/min; Glucose 194 mg/dL (74-106); Potassium 6.1 mmol/L (3.5-5.1); Sodium Level 132 mmol/L (136-145)
[2021-10-23 02:37] LABS: Est Glom Filt Rate - Afr Amer 5 mL/min (>60)
[2021-10-23] MEDS: Sodium Bicarbonate 8.4% 50 ML Syringe 100 MEQ IV (03:09)
[2021-10-23] MEDS: 0.9% Saline Lock 10 ML Syringe IV (03:12)
[2021-10-23] MEDS: Albuterol *CONC* 2.5mg/0.5mL VIAL.NEB. 10 MG INHALATION (03:38)
[2021-10-23] MEDS: Levothyroxine 88 MCG Tablet PO (06:35)
[2021-10-23 07:11] LABS: Bedside Glucose 103 mg/dL (74-106)
--- NOTE | 2021-10-23 09:11 | PCM.PN.HOSP ---
Documented by User: Linette Hwang NP-Faith 10/23/21 09:20 Subjective Subjective Patient seen and examined. Patient lying in bed no distress noted. Patient states that she is feeling overall better. Planned for patient to have EGD and colonoscopy with Dr. Lerner this admission. Patient currently receiving dialysis. Objective Data Objective Data Vital Signs: Vital Signs Temp Pulse Resp BP Pulse Ox O2 Del Method 98.0 F 73 16 154/62 H 99 Room Air 10/23/21 08:37 10/23/21 08:37 10/23/21 08:37 10/23/21 08:37 10/23/21 08:37 10/23/21 08:37 Oxygen Delivery Method Room Air Weight: 254 lb 9.6 oz Body Mass Index (BMI) 42.3 Intake & Output: Intake and Output for Last 24 Hours 10/21/21 10/22/21 10/23/21 23:59 23:59 23:59 Intake Total 220 / 220 Balance 220 / 220 Lab / Micro Data Result Diagrams: 10/23/21 02:00 10/23/21 02:00 Labs: Laboratory Results - last 24 hr 10/22/21 19:30: WBC 3.4 L, RBC 2.63 L, Hgb 8.0 L, Hct 25.3 L, MCV 96.2, MCH 30.4, MCHC 31.6 L, RDW Std Deviation 66.9 H, RDW Coeff of Tami 18.9 H, Plt Count 80 L, MPV 11.1, Immature Gran % (Auto) 0.900, Neut % (Auto) 74.9 H, Lymph % (Auto) 12.5 L, [place] % (Auto) 7.2, Eos % (Auto) 4.2, Baso % (Auto) 0.3, Absolute Neuts (auto) 2.5, Absolute Lymphs (auto) 0.42 L, Nucleated RBC % 0, Differential Comment SEE COMMENT, Diff Path Review May foll, Platelet Estimate MOD DEC, RBC Morphology N CHROM, Hypochromasia RARE, Anisocytosis 1+, Macrocytosis 1+ 10/22/21 19:30: PT 14.3, INR 1.1, APTT 31.8 10/22/21 19:30: Sodium 132 L, Potassium 5.7 H, Chloride 98, Carbon Dioxide 23.0, Anion Gap 11, BUN 91 H, Creatinine 9.46 H*, Estim Creat Clear Calc 5.41, Est GFR (MDRD) Af Amer 5 L, Est GFR (MDRD) Non-Af 4 L, BUN/Creatinine Ratio 9.6 L, Glucose 153 H, Calcium 8.4 L, Total Bilirubin 0.80, Direct Bilirubin 0.26, AST 28, ALT 43, Alkaline Phosphatase 101, Total Protein 6.7, Albumin 2.9 L, Globulin 3.8 10/22/21 22:02: POC Glucose 74 10/23/21 02:00: Hgb 7.5 L, Hct 23.8 L 10/23/21 02:00: Sodium 132 L, Potassium 6.1 H*, Chloride 98, Carbon Dioxide 23.0, Anion Gap 11, BUN 95 H, Creatinine 9.57 H*, Estim Creat Clear Calc 5.34, Est GFR (MDRD) Af Amer 5 L, Est GFR (MDRD) Non-Af 4 L, BUN/Creatinine Ratio 9.9 L, Glucose 194 H, Calcium 8.3 L 10/23/21 03:50: Blood Type AB NEGATIVE, Antibody Screen NEGATIVE, Crossmatch See Detail 10/23/21 06:34: POC Glucose 103 Micro: Microbiology 10/22/21 20:10 Stool Stool Occult Blood (TOMASZ) - Final Occult Blood Positive Physical Exam Const alert, oriented x3 and no apparent distress HEENT head/scalp atraumatic and moist oral mucous membranes Head and Scalp: normocephalic Eyes conjunctivae normal and no scleral icterus Neck no lymphadenopathy and supple Resp normal respiratory effort, normal air movement and clear to auscultation bilaterally Effort and Inspection: able to speak in complete sentences and symmetric chest movement Cardio regular rate, regular rhythm, S1 normal heart sound and S2 normal heart sound GI normal to inspection, nondistended, normoactive bowel sounds, soft to palpation and non-tender Extremity normal to inspection and full ROM Neuro oriented x3, moves all extremities, no focal motor deficits and no sensory deficits noted Sensorium / Orientation: awake and alert Psych affect normal Assessment & Plan Assessment/Plan (1) ABLA (acute blood loss anemia): PLAN: Plan 1. Acute blood loss anemia secondary to GI bleed -hemoglobin 7.5 today -GI following -Continue Protonix drip -N.p.o. except for ice chips and meds -Every 6 hours H&H -1 unit packed red blood cells transfused, 1 unit on hold 2. CAD status post stent -Stable -Aspirin and Plavix on hold due to GI bleed 3. Diabetes mellitus type 2 -ACH S blood sugars with sliding scale insulin ordered -Hold basal insulin 4. End-stage renal disease on dialysis -Saturday dialysis, patient currently receiving dialysis -Nephrology consulted -Continue diuretic 5. Hyperkalemia -Receiving dialysis today -BMP daily 6. HOFFMAN cirrhosis status post liver transplant -Continue tacrolimus DVT prophylaxis-SCDs This patient was seen by BAILEY Morgan under the supervision of Dr. Taylor. Documented by User: Dr. Jag Taylor MD 10/23/21 10:34 Objective Data Lab / Micro Data Result Diagrams: 10/23/21 02:00 10/23/21 02:00 Assessment & Plan Assessment/Plan (1) ABLA (acute blood loss anemia): Addt'l Comments This patient was seen in conjunction with BAILEY Morgan . I have independently interviewed and examined the patient and reviewed pertinent historical, laboratory, and other data. Please refer to BAILEY Morgan note for details of this patient's presentation, findings, and recommendations. I have reviewed BAILEY Morgan note and concur with documented findings. In brief, patient is a 66-year-old lady with multiple comorbidities including end-stage renal disease on hemodialysis, history of liver transplant on account of nonalcoholic fatty liver disease on tacrolimus who presented with bleeding per rectum. Her stool was described as bloody and dark. Patient was also found to be anemic. Hemoglobin on 09/11/2021 was 9.6, hemoglobin on admission was 8.0 and 7.5 as of 10/23/2021. Admitted to monitored bed typed and screened, H&H every 6 ordered with consultation placed to GI Physical Examination: GENERAL: cooperative HEENT: Atraumatic; EYES; Anicteric, Normal Conjunctiva NECK; supple, normal thyroid, RESPIRATORY: Diminished to auscultation CARDIOVASCULAR: Regular S1 S2, GI: soft, normoactive bowel sounds, : No Renal angle tenderness; EXTREMITIES: No edema, no clubbing, MUSCULOSKELETAL: no muscle wasting NEURO: Awake; no lateralizing signs. SKIN: No Rash PSYCH; Flat affect Assessment: 1. Anemia secondary to combination of acute blood loss anemia superimposed on anemia of end-stage renal disease 2. GI bleed suspected to be upper 3. Coronary artery disease with previous PCI 4. End-stage renal disease on hemodialysis 5. Liver transplant on account of nonalcoholic fatty liver disease on immunosuppressant agent 6. Diabetes mellitus type 2 7. Hyperkalemia secondary to ESRD 8. Class III obesity with BMI of 42.4 9. DVT prophylaxis Recommendations: 1. I have discussed the results of my overview and impressions with the patient 2. Options for management were reviewed Total time spent by myself and the advanced practice practitioner evaluating patient, reviewing labs, subsequent management decisions, discussion with patient as well as other providers 44 minutes ( 25 of which was spent by myself) Charges/Coding Visit Charges Inpatient E&M: 61637 Subs Hosp L3
[2021-10-23 11:15] LABS: Hematocrit 27.7 % (37-47); Hemoglobin 9.1 g/dL (12.0-15.0)
--- NOTE | 2021-10-23 11:15 | CASEMGMT ---
NIEVES BIANCHI Face to Face with patient for initial transition planning/care coordination assessment. RN CM introduced self and role at [facility]. Patient lying in bed, alert and oriented. Patient willing to participate in assessment and is able to answer all questions appropriately. Care providers, pharmacy, and demographics verified. Patient wishes to discharge home, denies need for home health at this time. Patient states he has no further needs or concerns at this time. CM to follow for discharge planning needs that may arise. PCP: Geremias Specialists: Em, social worker psychiatric; [facility], rn advice Preferred Pharmacy: [facility] retail at discharge. Insurance: [employer] Prescription Benefit: yes Living Will/HPOA: yes, Don Chey, LNOK: Living Arrangements: Patient lives with in a 2nd floor apartment. Patient states she is independent and able to ambulate stairs. Transportation: self, DME/HHC: Patient states she has shower chair, BSC, rollator, cpap, and pulse ox at home. Patient attends MWF at 0630. No previous HHC or SNF Disposition Plan: Patient to discharge home with family support and follow-up plans in place. Christine DOWNING, RN, CM
[2021-10-23 11:46] LABS: Bedside Glucose 107 mg/dL (74-106)
[2021-10-23] MEDS: Carvedilol 12.5 MG Tablet PO (13:26)
[2021-10-23] MEDS: Furosemide 40 MG Tablet 120 MG PO (13:27)
[2021-10-23] MEDS: Pramipexole Di-HCl 0.5 MG Tablet PO (13:27)
[2021-10-23] MEDS: Vitamin B Comp W-C Capsule 1 CAP PO (13:27)
--- NOTE | 2021-10-23 13:27 | DIALYSIS ---
Hemodialysis completed at 1300 on a 2K bath, tolerated well, UF 3300mL, accessed via MAGDALENO AVF using 15G needles, needles pulled post tx and stasis achieved without issue, next tx planned for Saturday
[2021-10-23] MEDS: Ascorbic Acid 500 MG Tablet 1000 MG PO (13:30)
[2021-10-23] MEDS: Sertraline 50 MG Tablet PO (13:31)
--- NOTE | 2021-10-23 14:07 | CON.PCM.RE_ITS ---
Assessment & Plan Assessment/Plan (1) ESRD (end stage renal disease): PLAN: Dialysis today. See orders. Hyperkalemia. Received medical treatment early this morning. Should improve with dialysis this afternoon. Anemia. Due to GI bleed and possible vaginal bleed. Transfusion as needed. GI on consult for GI bleeding. HPI Consult Data Date of Consult: 10/23/21 HPI Narrative Reason for Consultation: ESRD HPI Narrative: CHRISTINA KUO, is a 66 F who presents to the hospital with GI bleed. Nephrology on consultation for ESRD. ESRD on dialysis Saturday, Saturday, Saturday schedule. Recently having issues with GI bleed. Apparently went to an ultrasound for va ginal bleeding on Saturday and missed dialysis. Came in with severe anemia, hyperkalemia. Reviewed records from [facility], pelvic ultrasound unremarkable. Previous radical hysterectomy. Seen on dialysis today. [facility] Medical History Anemia Anemia in chronic kidney disease Back pain Blister Cancer Cardiology follow-up encounter Celiac disease Chronic kidney disease, stage 3 Chronic kidney failure Chronic renal failure, stage 4 (severe) Chronic renal failure, stage 5 Cirrhosis COPD (chronic obstructive pulmonary disease) CPAP (continuous positive airway pressure) dependence Diabetes Dialysis patient DVT (deep venous thrombosis) ESRD (end stage renal disease) Gastric reflux GERD (gastroesophageal reflux disease) History of echocardiogram (~01/22/20) History of edema History of irregular heartbeat History of renal disease History of stress test (~12/07/19) History of uterine cancer Hx of Krueger's palsy Hypertension Infection involving suture with abscess Insulin dependent diabetes mellitus LIVER TRANSPLANT Non-smoker Osteoporosis Pancytopenia Sleep apnea Wears dentures Wears glasses Home Medications ascorbic acid (vitamin C) 500 mg chewable tablet 1,000 mg PO DAILY supplement 02/20/15 [History Last Taken 09/09/19] cholecalciferol (vitamin D3) 25 mcg (1,000 unit) tablet 1,000 unit PO BID supplement 02/20/15 [History Last Taken 09/09/19] atorvastatin 10 mg tablet 10 mg PO QHS cholestrol 10/19/16 [History Last Taken 09/09/19] insulin aspart U-100 100 unit/mL (3 mL) subcutaneous pen (Novolog Flexpen U-100 Insulin aspart) 22 units subcut 0800,1700 blood sugar 05/29/18 [History Last Taken 09/09/19] insulin glargine 100 unit/mL (3 mL) subcutaneous pen (Lantus Solostar U-100 Insulin) 60 unit SQ BID blood sugar 05/29/18 [History Last Taken 09/09/19] tacrolimus 1 mg capsule, immediate-release (Prograf) 0.5 mg PO BID REJECTION 09/10/19 [History Last Taken 04/27/21] trazodone 150 mg tablet 200 mg PO QHS SLEEP 09/10/19 [History Last Taken 09/09/19] vitamin B complex 1 tablet PO DAILY SUPPLEMENT 09/10/19 [History Last Taken 09/09/19] albuterol sulfate 90 mcg/actuation aerosol inhaler 2 puff IH Q4H PRN PRN Sob &/Or Wheezing 02/25/20 [History Last Taken Unknown] carvedilol 25 mg tablet 12.5 mg PO BID heart 02/25/20 [History Last Taken 08/03/20] hydroxyzine HCl 25 mg tablet 25 mg PO BID PRN Itching 05/23/20 [History Last Taken Unknown] levothyroxine 25 mcg tablet 88 mcg PO DAILY thyroid 05/23/20 [History Last Taken 04/28/21] ropinirole 1 mg tablet 1 mg PO .QAM 05/23/20 [History Last Taken 06/16/20] torsemide 20 mg tablet 60 mg PO DAILY FLUID 05/23/20 [History Last Taken Unknown] ropinirole 2 mg tablet,extended release 24 hr 2 mg PO QHS 06/10/20 [History Last Taken Unknown] sevelamer carbonate 800 mg tablet (Renvela) 800 mg PO TID 06/10/20 [History Last Taken Unknown] hydrocodone-acetaminophen 5-325mg 5mg-325mg 1 tab PO Q8H PRN pain 2 days #6 tabs 08/03/20 [Rx Last Taken Unknown] clopidogrel 75 mg tablet (Plavix) 75 mg PO DAILY 04/28/21 [History Last Taken Unknown] aspirin 81 mg tablet,delayed release (Ecotrin Low Strength) 81 mg PO DAILY #30 tabs 04/29/21 [Rx Last Taken Unknown] nitroglycerin 0.4 mg sublingual tablet 0.4 mg sublingual Q5M PRN Cardiac/Chest Pain #30 tabs 04/29/21 [Rx Last Taken Unknown] pantoprazole 40 mg tablet,delayed release 40 mg PO BID #60 tabs 04/29/21 [Rx Last Taken Unknown] biotin 1 mg capsule 1 mg PO DAILY 08/11/21 [History Last Taken Unknown] melatonin 3 mg tablet 10 mg PO QHS 08/11/21 [History Last Taken Unknown] sertraline 50 mg tablet (Zoloft) 50 mg PO DAILY mood 08/11/21 [History Last Taken Unknown] insulin aspart U-100 100 unit/mL (3 mL) subcutaneous pen 26 unit subcut 1200 diabetes 10/22/21 [History Last Taken Unknown] Allergy/AdvReac Type Severity Reaction Status Date / Time amlodipine [From Norvasc] Allergy Severe Hives Verified 10/22/21 19:18 ampicillin sodium Allergy Severe Hives Verified 10/22/21 19:18 [From Unasyn] buspirone HCl [From BuSpar] Allergy Severe Hives Verified 10/22/21 19:18 cefadroxil [From Duricef] Allergy Severe Hives Verified 10/22/21 19:18 lisinopril Allergy Severe Swelling Verified 10/22/21 19:18 naproxen Allergy Severe Hives Verified 10/22/21 19:18 niacin Allergy Severe Hives Verified 10/22/21 19:18 [From Niaspan Extended-Release] sulbactam sodium Allergy Severe Hives Verified 10/22/21 19:18 [From Unasyn] Sulfa (Sulfonamide Allergy Severe Hives Verified 10/22/21 19:18 Antibiotics) cephalexin [From Keflex] Allergy Hives Verified 10/22/21 19:18 omeprazole AdvReac Severe Other Verified 08/14/21 15:41 losartan AdvReac Swelling Verified 08/14/21 15:41 Family History Mother Diabetes Anemia Father Hypertension LUNG/RESPIRATORY DISEASE Surgical History History of appendectomy History of cholecystectomy History of coronary artery stent placement History of left knee surgery History of left salpingo-oophorectomy History of liver transplant History of radical hysterectomy History of ventral hernia repair S/P arteriovenous (AV) fistula creation (~04/15/21) Social History Smoking Status: Never smoker substance use type: does not use ROS ROS Narrative negative except above Physical Exam Narrative Alert awake oriented x 3 no obvious distress no icterus no JVD s1s2 no murmurs lungs clear abdomen soft no organomegaly no edema no cyanosis Lab / Micro Data Result Diagrams: 10/23/21 11:00 10/23/21 02:00 Labs: Laboratory Results - last 24 hr 10/22/21 19:30: WBC 3.4 L, RBC 2.63 L, Hgb 8.0 L, Hct 25.3 L, MCV 96.2, MCH 30 .4, MCHC 31.6 L, RDW Std Deviation 66.9 H, RDW Coeff of Tami 18.9 H, Plt Count 80 L, MPV 11.1, Immature Gran % (Auto) 0.900, Neut % (Auto) 74.9 H, Lymph % (Auto) 12.5 L, [place] % (Auto) 7.2, Eos % (Auto) 4.2, Baso % (Auto) 0.3, Absolute Neuts (auto) 2.5, Absolute Lymphs (auto) 0.42 L, Nucleated RBC % 0, Differential Comment SEE COMMENT, Diff Path Review May foll, Platelet Estimate MOD DEC, RBC Morphology N CHROM, Hypochromasia RARE, Anisocytosis 1+, Macrocytosis 1+ 10/22/21 19:30: PT 14.3, INR 1.1, APTT 31.8 10/22/21 19:30: Sodium 132 L, Potassium 5.7 H, Chloride 98, Carbon Dioxide 23.0, Anion Gap 11, BUN 91 H, Creatinine 9.46 H*, Estim Creat Clear Calc 5.41, Est GFR (MDRD) Af Amer 5 L, Est GFR (MDRD) Non-Af 4 L, BUN/Creatinine Ratio 9.6 L, Glucose 153 H, Calcium 8.4 L, Total Bilirubin 0.80, Direct Bilirubin 0.26, AST 28, ALT 43, Alkaline Phosphatase 101, Total Protein 6.7, Albumin 2.9 L, Globulin 3.8 10/22/21 22:02: POC Glucose 74 10/23/21 02:00: Hgb 7.5 L, Hct 23.8 L 10/23/21 02:00: Sodium 132 L, Potassium 6.1 H*, Chloride 98, Carbon Dioxide 23.0, Anion Gap 11, BUN 95 H, Creatinine 9.57 H*, Estim Creat Clear Calc 5.34, Est GFR (MDRD) Af Amer 5 L, Est GFR (MDRD) Non-Af 4 L, BUN/Creatinine Ratio 9.9 L, Glucose 194 H, Calcium 8.3 L 10/23/21 03:50: Blood Type AB NEGATIVE, Antibody Screen NEGATIVE, Crossmatch See Detail 10/23/21 06:34: POC Glucose 103 10/23/21 11:00: Hgb 9.1 L, Hct 27.7 L 10/23/21 11:18: POC Glucose 107 H Micro: Microbiology 10/22/21 20:10 Stool Stool Occult Blood (TOMASZ) - Final Occult Blood Positive
[2021-10-23 14:32] LABS: Hematocrit 26.3 % (37-47); Hemoglobin 8.4 g/dL (12.0-15.0)
[2021-10-23 17:00] LABS: Bedside Glucose 139 mg/dL (74-106)
[2021-10-23] MEDS: SEVELAMER CARBONATE 800 MG TABLET PO (17:16)
--- NOTE | 2021-10-23 18:02 | PCM.PROGNOTE ---
Subjective Subjective Patient went hemodialysis today and is feeling a lot better. She did not have any nausea. She does not have any chest pain shortness of breath. She is still having blood per rectum when she has a bowel movement. Objective Data Objective Data Vital Signs: Vital Signs Temp Pulse Resp BP Pulse Ox O2 Del Method 98.2 F 85 18 142/59 H 95 Room Air 10/23/21 17:42 10/23/21 17:42 10/23/21 17:42 10/23/21 17:42 10/23/21 17:42 10/23/21 17:42 Oxygen Delivery Method Room Air Weight: 254 lb 10.142 oz Body Mass Index (BMI) 42.3 Intake & Output: Intake and Output for Last 24 Hours 10/21/21 10/22/21 10/23/21 23:59 23:59 23:59 Intake Total 1981.67 / 1981. Output Total 3300 / 3300 Balance -1317.33 / -1317.33 Lab / Micro Data Result Diagrams: 10/23/21 14:22 10/23/21 02:00 Labs: Laboratory Results - last 24 hr 10/22/21 19:30: WBC 3.4 L, RBC 2.63 L, Hgb 8.0 L, Hct 25.3 L, MCV 96.2, MCH 30.4, MCHC 31.6 L, RDW Std Deviation 66.9 H, RDW Coeff of Tami 18.9 H, Plt Count 80 L, MPV 11.1, Immature Gran % (Auto) 0.900, Neut % (Auto) 74.9 H, Lymph % (Auto) 12.5 L, [place] % (Auto) 7.2, Eos % (Auto) 4.2, Baso % (Auto) 0.3, Absolute Neuts (auto) 2.5, Absolute Lymphs (auto) 0.42 L, Nucleated RBC % 0, Differential Comment SEE COMMENT, Diff Path Review May foll, Platelet Estimate MOD DEC, RBC Morphology N CHROM, Hypochromasia RARE, Anisocytosis 1+, Macrocytosis 1+ 10/22/21 19:30: PT 14.3, INR 1.1, APTT 31.8 10/22/21 19:30: Sodium 132 L, Potassium 5.7 H, Chloride 98, Carbon Dioxide 23.0, Anion Gap 11, BUN 91 H, Creatinine 9.46 H*, Estim Creat Clear Calc 5.41, Est GFR (MDRD) Af Amer 5 L, Est GFR (MDRD) Non-Af 4 L, BUN/Creatinine Ratio 9.6 L, Glucose 153 H, Calcium 8.4 L, Total Bilirubin 0.80, Direct Bilirubin 0.26, AST 28, ALT 43, Alkaline Phosphatase 101, Total Protein 6.7, Albumin 2.9 L, Globulin 3.8 10/22/21 22:02: POC Glucose 74 10/23/21 02:00: Hgb 7.5 L, Hct 23.8 L 10/23/21 02:00: Sodium 132 L, Potassium 6.1 H*, Chloride 98, Carbon Dioxide 23.0, Anion Gap 11, BUN 95 H, Creatinine 9.57 H*, Estim Creat Clear Calc 5.34, Est GFR (MDRD) Af Amer 5 L, Est GFR (MDRD) Non-Af 4 L, BUN/Creatinine Ratio 9.9 L, Glucose 194 H, Calcium 8.3 L 10/23/21 03:50: Blood Type AB NEGATIVE, Antibody Screen NEGATIVE, Crossmatch See Detail 10/23/21 06:34: POC Glucose 103 10/23/21 11:00: Hgb 9.1 L, Hct 27.7 L 10/23/21 11:18: POC Glucose 107 H 10/23/21 14:22: Hgb 8.4 L, Hct 26.3 L 10/23/21 16:36: POC Glucose 139 H Micro: Microbiology 10/22/21 20:10 Stool Stool Occult Blood (TOMASZ) - Final Occult Blood Positive Physical Exam Narrative Alert awake oriented x 3 no obvious distress no icterus no JVD s1s2 no murmurs lungs clear abdomen soft no organomegaly no edema no cyanosis Const alert General Appearance: cooperative Orientation / Consciousness: oriented to person HEENT hearing grossly normal bilaterally Head and Scalp: normal to inspection Face and Sinus: face symmetric Nose: external nose normal Mouth: oral and palatal mucosa normal Eyes conjunctivae normal General Eye: normal appearance of both eyes Neck full ROM General: normal visual inspection Lymph Lymphatic: no lymphadenopathy noted Chest inspection of chest normal and palpation of chest normal Chest: symmetrical chest wall rise Resp normal respiratory effort Effort and Inspection: able to speak in complete sentences Cardio regular rate GI non-distended Percussion: normal to percussion Rectal Exam: deferred Neuro Speech: speech normal Gait (Neuro): normal gait Assessment & Plan Assessment/Plan (1) ABLA (acute blood loss anemia): PLAN: The differential diagnosis for acute blood loss anemia would be portal gastropathy, variceal bleed, telangiectasia, peptic ulcer disease, neoplasia, diverticular disease, hemorrhoidal disease. She will undergo an upper and lower endoscopy tomorrow. She was explained alternatives, risk, benefits include not withstanding bleeding, infection, sepsis, perforation, need for urgent . She will have an ASA of 3. (2) Liver cirrhosis secondary to HOFFMAN: PLAN: At this time she has not shown any signs of decompensated liver disease. She is not jaundice, she does not have any encephalopathy, she is not having any signs of ascites. She is having a GI bleed which could be secondary to decompensated cirrhosis. She will undergo endoscopy tomorrow. Her hemoglobin has not at the point where she needs a blood transfusion. I would transfuse for hemoglobin less than 7. Charges/Coding Visit Charges Inpatient E&M: 04412 Subs Hosp L2
[2021-10-23] MEDS: Bisacodyl 5 MG Tablet 20 MG PO (18:58)
[2021-10-23] MEDS: Electrolyte Solution/Peg's 4000 ML PO (18:59)
[2021-10-23 21:31] LABS: Hematocrit 28.5 % (37-47)
[2021-10-23] MEDS: traZODone 100 MG Tablet 200 MG PO (22:15)
[2021-10-23 23:20] LABS: Bedside Glucose 127 mg/dL (74-106)
[2021-10-24] VITALS (9 sets, daily range): BP systolic 127–143; BP diastolic 47–60; PULSE 71–78; RESP 16–18; TEMP 36.2–36.7; O2SAT 94–99
[2021-10-24] MEDS: Levothyroxine 88 MCG Tablet PO (06:01)
[2021-10-24 06:52] LABS: Absolute Lymphocyte Count 0.27 X10^3/uL (0.83-4.51); Absolute Neutrophil Count 1.6 X10^3/uL (2.0-7.7); Basophil# 0.01 X10^3/uL; Basophil% 0.4 % (0-1); Eosinophil# 0.13 X10^3/uL; Eosinophils% 5.8 % (0-5); Hematocrit 25.9 % (37-47); Hemoglobin 8.4 g/dL (12.0-15.0); Lymphocyte # 0.27 X10^3/ul (0.83-4.51); Lymphocyte % 11.9 % (19-41); Mean Corp Hgb Conc 32.4 g/dL (32-36); Mean Corpuscular Hgb 30.5 pg (27.0-32.0); Mean Corpuscular Volume 94.2 fL (81-99); Mean Platelet Vol. 11.5 fl (6.2-12.0); Monocyte# 0.19 X10^3/uL; Monocyte% 8.4 % (0-10); NRBC Flagged by Analyzer 0 % (0-5); Neutrophil # 1.63 X10^3/uL (2.7-7.7); Neutrophil % 72.2 % (47-70); POSITIVE COUNT YES; POSITIVE DIFFERENTIAL YES; POSITIVE MORPHOLOGY YES; Platelet Count 77 K/mm3 (150-450); RBC Distribution Width CV 19.1 % (11.6-14.6); RBC Distribution Width SD 65.7 fl (35.1-43.9); Red Blood Count 2.75 M/mm3 (4.2-5.4); White Blood Count 2.3 K/mm3 (4.4-11.0)
[2021-10-24 06:55] LABS: Bedside Glucose 125 mg/dL (74-106)
[2021-10-24 06:56] LABS: Differential Indicated SCAN CRITERIA MET
[2021-10-24 07:16] LABS: ALB/GLOB Ratio 0.7 RATIO (0.9-2.4); AST(SGOT) 25 U/L (15-37); Alanine Aminotransfer ALT/SGPT 37 U/L (13-56); Albumin, Serum 2.7 g/dL (3.2-5.0); Alkaline Phosphatase 94 U/L (45-117); Anion Gap 9 (5-15); BUN 44 mg/dL (7-18); BUN/Creat Ratio 7.4 RATIO (10-20); Calcium,Total 7.8 mg/dL (8.5-10.1); Chloride 95 mmol/L (98-107); Creatinine, Serum 5.94 mg/dL (0.55-1.02); EST Glomerular Filtration Rate 8 mL/min (>60); Est Glom Filt Rate - Afr Amer 9 mL/min (>60); Estimated Creatinine Clearance 8.61 ml/min; Globulin 3.8 g/dL (2.2-4.2); Glucose 131 mg/dL (74-106); Potassium 4.3 mmol/L (3.5-5.1); Protein, Total 6.5 g/dL (6.4-8.2); Sodium Level 133 mmol/L (136-145)
[2021-10-24 07:40] LABS: Anisocytosis 1+
[2021-10-24] MEDS: Carvedilol 12.5 MG Tablet PO ×2 (08:51→17:25)
[2021-10-24] MEDS: Tacrolimus 0.5 MG Capsule PO ×2 (08:52→21:30)
[2021-10-24] MEDS: Pramipexole Di-HCl 0.5 MG Tablet PO (08:52)
[2021-10-24] MEDS: Furosemide 40 MG Tablet 120 MG PO (08:52)
[2021-10-24] MEDS: Sertraline 50 MG Tablet PO (08:54)
[2021-10-24 09:09] LABS: Pathologist Review Reviewed
[2021-10-24 12:40] LABS: Bedside Glucose 125 mg/dL (74-106)
--- NOTE | 2021-10-24 13:22 | PN.RENAL_ITS ---
Subjective Subjective no new events Objective Data Objective Data Vital Signs: Vital Signs Temp Pulse Resp BP Pulse Ox O2 Del Method 98.1 F 72 16 143/47 H 98 Room Air 10/24/21 08:12 10/24/21 08:12 10/24/21 08:12 10/24/21 08:12 10/24/21 08:12 10/24/21 08:12 Oxygen Delivery Method Room Air Weight: 115.5 kg Body Mass Index (BMI) 42.3 Intake & Output: Intake and Output for Last 24 Hours 10/22/21 10/23/21 10/24/21 23:59 23:59 23:59 Intake Total 1982.67 / 1982.67 200 / 200 Output Total 3300 / 3300 Balance -1317.33 / -1317.33 200 / 200 Lab / Micro Data Result Diagrams: 10/24/21 06:15 10/24/21 06:15 Labs: Laboratory Results - last 24 hr 10/22/21 19:30: Diff Path Review Reviewed 10/23/21 14:22: Hgb 8.4 L, Hct 26.3 L 10/23/21 16:36: POC Glucose 139 H 10/23/21 21:18: Hgb 9.0 L, Hct 28.5 L 10/23/21 22:56: POC Glucose 127 H 10/24/21 05:59: POC Glucose 125 H 10/24/21 06:15: WBC 2.3 L, RBC 2.75 L, Hgb 8.4 L, Hct 25.9 L, MCV 94.2, MCH 30.5, MCHC 32.4, RDW Std Deviation 65.7 H, RDW Coeff of Tami 19.1 H, Plt Count 77 L, MPV 11.5, Immature Gran % (Auto) 1.300 H, Neut % (Auto) 72.2 H, Lymph % (Auto) 11.9 L, [place] % (Auto) 8.4, Eos % (Auto) 5.8 H, Baso % (Auto) 0.4, Abso lute Neuts (auto) 1.6 L, Absolute Lymphs (auto) 0.27 L, Nucleated RBC % 0, Differential Comment , Diff Path Review May foll, Anisocytosis 1+ 10/24/21 06:15: Sodium 133 L, Potassium 4.3, Chloride 95 L, Carbon Dioxide 29.0, Anion Gap 9, BUN 44 H, Creatinine 5.94 H, Estim Creat Clear Calc 8.61, Est GFR (MDRD) Af Amer 9 L, Est GFR (MDRD) Non-Af 8 L, BUN/Creatinine Ratio 7.4 L, Glucose 131 H, Calcium 7.8 L, Total Bilirubin 0.80, AST 25, ALT 37, Alkaline Phosphatase 94, Total Protein 6.5, Albumin 2.7 L, Globulin 3.8, Albumin/Globulin Ratio 0.7 L 10/24/21 12:21: POC Glucose 125 H Micro: Microbiology 10/22/21 20:10 Stool Stool Occult Blood (TOMASZ) - Final Occult Blood Positive Physical Exam Narrative Alert awake oriented x 3 no obvious distress no pallor no icterus no JVD s1s2 no murmurs lungs clear abdomen soft no organomegaly no edema no cyanosis Assessment & Plan Assessment/Plan (1) ESRD (end stage renal disease): PLAN: HD as per schedule anemia. PRBC as needed
--- NOTE | 2021-10-24 13:34 | PCM.PN.HOSP ---
Documented by User: Linette Hwang NP-C 10/24/21 13:35 Subjective Subjective Patient seen and examined. Patient lying in bed no distress noted. Patient states that she is tired as she completed bowel prep last night. Objective Data Objective Data Vital Signs: Vital Signs Temp Pulse Resp BP Pulse Ox O2 Del Method 98.1 F 72 16 143/47 H 98 Room Air 10/24/21 08:12 10/24/21 08:12 10/24/21 08:12 10/24/21 08:12 10/24/21 08:12 10/24/21 08:12 Oxygen Delivery Method Room Air Weight: 254 lb 10.142 oz Body Mass Index (BMI) 42.3 Intake & Output: Intake and Output for Last 24 Hours 10/22/21 10/23/21 10/24/21 23:59 23:59 23:59 Intake Total 1982.67 / 1981.67 200 / 200 Output Total 3300 / 3300 Balance -1317.33 / -1317.33 200 / 200 Lab / Micro Data Result Diagrams: 10/24/21 06:15 10/24/21 06:15 Labs: Laboratory Results - last 24 hr 10/22/21 19:30: Diff Path Review Reviewed 10/23/21 14:22: Hgb 8.4 L, Hct 26.3 L 10/23/21 16:36: POC Glucose 139 H 10/23/21 21:18: Hgb 9.0 L, Hct 28.5 L 10/23/21 22:56: POC Glucose 127 H 10/24/21 05:59: POC Glucose 125 H 10/24/21 06:15: WBC 2.3 L, RBC 2.75 L, Hgb 8.4 L, Hct 25.9 L, MCV 94.2, MCH 30.5, MCHC 32.4, RDW Std Deviation 65.7 H, RDW Coeff of Tami 19.1 H, Plt Count 77 L, MPV 11.5, Immature Gran % (Auto) 1.300 H, Neut % (Auto) 72.2 H, Lymph % (Auto) 11.9 L, [place] % (Auto) 8.4, Eos % (Auto) 5.8 H, Baso % (Auto) 0.4, Absolute Neuts (auto) 1.6 L, Absolute Lymphs (auto) 0.27 L, Nucleated RBC % 0, Differential Comment , Diff Path Review May foll, Anisocytosis 1+ 10/24/21 06:15: Sodium 133 L, Potassium 4.3, Chloride 95 L, Carbon Dioxide 29.0, Anion Gap 9, BUN 44 H, Creatinine 5.94 H, Estim Creat Clear Calc 8.61, Est GFR (MDRD) Af Amer 9 L, Est GFR (MDRD) Non-Af 8 L, BUN/Creatinine Ratio 7.4 L, Glucose 131 H, Calcium 7.8 L, Total Bilirubin 0.80, AST 25, ALT 37, Alkaline Phosphatase 94, Total Protein 6.5, Albumin 2.7 L, Globulin 3.8, Albumin/Globulin Ratio 0.7 L 10/24/21 12:21: POC Glucose 125 H Micro: Microbiology 10/22/21 20:10 Stool Stool Occult Blood (TOMASZ) - Final Occult Blood Positive Physical Exam Const alert, oriented x3 and no apparent distress HEENT head/scalp atraumatic and moist oral mucous membranes Eyes conjunctivae normal and no scleral icterus Neck no lymphadenopathy and supple Resp normal respiratory effort, normal air movement and clear to auscultation bilaterally Effort and Inspection: able to speak in complete sentences and symmetric chest movement Cardio regular rate, regular rhythm, S1 normal heart sound and S2 normal heart sound GI normal to inspection, nondistended, normoactive bowel sounds, soft to palpation and non-tender Extremity normal to inspection and full ROM Neuro oriented x3, moves all extremities, no focal motor deficits and no sensory deficits noted Sensorium / Orientation: awake and alert Psych affect normal Assessment & Plan Assessment/Plan (1) ABLA (acute blood loss anemia): PLAN: Plan 1. Acute blood loss anemia secondary to GI bleed -hemoglobin 8.4 today -GI following, EGD and colonoscopy 10/24/2021 -Continue Protonix drip -N.p.o. except for ice chips and meds -CBC daily -1 unit packed red blood cells transfused, 1 unit on hold 2. CAD status post stent -Stable -Aspirin and Plavix on hold due to GI bleed 3. Diabetes mellitus type 2 -ACH S blood sugars with sliding scale insulin ordered -Hold basal insulin 4. End-stage renal disease on dialysis -Saturday dialysis, -Nephrology consulted -Continue diuretic 5. Hyperkalemia -Receiving dialysis today -BMP daily 6. HOFFMAN cirrhosis status post liver transplant -Continue tacrolimus DVT prophylaxis-SCDs This patient was seen by BAILEY Morgan under the supervision of Dr. Taylor. Documented by User: Dr. Jag Taylor MD 10/24/21 14:00 Objective Data Lab / Micro Data Result Diagrams: 10/24/21 06:15 10/24/21 06:15 Assessment & Plan Assessment/Plan (1) ABLA (acute blood loss anemia): Addt'l Comments This patient was seen in conjunction with BAILEY Morgan .? I have independently interviewed and examined the patient and reviewed pertinent historical, laboratory, and other data.? Please refer to BAILEY Morgan? note for details of this patient's presentation, findings, and recommendations.? I have reviewed? BAILEY Morgan note and concur? with documented findings. In brief, patient is a 66-year-old lady with multiple comorbidities including end-stage renal disease on hemodialysis, history of liver transplant on account of nonalcoholic fatty liver disease on tacrolimus who presented with bleeding per rectum.? Her stool was described as bloody and dark.? Patient was also found to be anemic.? Hemoglobin on 09/11/2021 was 9.6, hemoglobin on admission was 8.0 and 7.5 as of 10/23/2021.? Admitted to monitored bed typed and screened, H&H every 6 ordered with consultation placed to GI 10/24/2021; patient undergoing prep for EGD and colonoscopy Physical Examination: GENERAL: cooperative HEENT: Atraumatic; EYES; Anicteric, Normal Conjunctiva NECK; supple, normal thyroid, RESPIRATORY: Diminished to auscultation CARDIOVASCULAR:? Regular S1 S2, GI:? soft, normoactive bowel sounds, : No Renal angle tenderness; EXTREMITIES:? No edema, no clubbing, MUSCULOSKELETAL:? no muscle wasting NEURO:? Awake;? no lateralizing signs. SKIN:? No Rash PSYCH; Flat? affect ? Assessment:? 1.? Anemia secondary to combination of acute blood loss anemia superimposed on anemia of end-stage renal disease ?2.? GI bleed suspected to be upper 3.? Coronary artery disease with previous PCI 4.? End-stage renal disease on hemodialysis 5.? Liver transplant on account of nonalcoholic fatty liver disease on immunosuppressant agent 6.? Diabetes mellitus type 2 7.? Hyperkalemia secondary to ESRD 8.? Class III obesity with BMI of 42.4 9.? DVT prophylaxis Recommendations: 1.? I have discussed the results of my overview and impressions with the patient 2.? Options for management were reviewed Total time spent by myself and the advanced practice practitioner evaluating patient, reviewing labs, subsequent management decisions, discussion with patient as well as other providers 44 minutes ( 25 of which was spent by myself) Charges/Coding Visit Charges Inpatient E&M: 96619 Subs Hosp L2
[2021-10-24] MEDS: Lactated Ringers 1,000 ML 15 ML IV (14:30)
--- NOTE | 2021-10-24 15:00 | COLBX_PTH ---
PATIENT: CHRISTINA KUO LOC: [facility] U#:[id number] AGE/SX: 66/F ROOM: [facility] RE10/23/[address]: Dr. Don Duval DO : 1955 BED: 1 DIS: 10/25/2021 SPEC #: [id number] RECD: 10/25/21 16:50 STATUS: CANELO REMeliza #: [id number] JAREK: 10/24/21 15:[address]: Bcuk Lerner DEPT: SURGICAL PATHOLOGY RECD BY: Randi Antony ENTERED: 10/25/21 11:16 SP TYPE: COLON BX OTHR DR: MD Dr. Jag Garay MD Dr. Joseph Agyepong, MD Dr. Jayaprakas Dasari, MD Dr. Mark Tereletsky, DO Dr. Rahsaan Friend, DO Tissues: A - Transverse colon B - Ascending colon C - Sigmoid colon biopsy Procedures: Surgery Specimen Level IV Comments: @ Ordering doctor for SUIV edited from to @ by ZAHRA at 10/25/21 144 @ Submitting doctor edited from to @ by ZAHRA at 10/25/21 1442 HEADER OPERATION: Colonoscopy, EGD ([facility] [place]) PRE-OP DIAGNOSIS: Liver cirrhosis secondary to HOFFMAN, acute blood loss anemia, upper GI bleed TISSUE SUBMITTED: A ? Transverse colon polyp, B ? Ascending colon polyp, C ? Sigmoid colon polyp MICROSCOPIC DIAGNOSIS A. Transverse colon polyp, biopsy: Fragments of tubular adenoma. B. Ascending colon polyp, biopsy: Fragments of tubular adenoma. C. Sigmoid colon polyp, biopsy: Fragments of tubular adenoma. SJ:stephen 10/26/2021 MICROSCOPIC DESCRIPTION Slides are reviewed. GROSS DESCRIPTION A - Received in fixative is one container labeled with the patient's name and designated transverse colon polyp. The specimen consists of multiple irregular fragments of light mccormack soft tissue that in aggregate measure 2.2 x 1 x 0.2 cm. The specimen is totally submitted in one cassette. B - Received in fixative is one container labeled with the patient's name and designated ascending colon polyp. The specimen consists of multiple irregular fragments of light mccormack soft tissue that in aggregate measure 0.7 x 0.3 x 0.1 cm. The specimen is totally submitted in one cassette. C - Received in fixative is one container labeled with the patient's name and designated sigmoid polyp. The specimen consists of multiple irregular fragments of light mccormack soft tissue that in aggregate measure 0.8 x 0.6 x 0.2 cm. The specimen is totally submitted in one cassette. / AM:stephen 10/25/2021 TC:1 CPT: 73772 x3
--- NOTE | 2021-10-24 16:48 | OP.EGD_ITS ---
Patient Name: Sivan Guerrier Procedure Date: 10/24/2021 3:35 PM Date of : 1955 Age: 66 Procedure: Upper GI endoscopy Indications: Acute post hemorrhagic anemia, Iron deficiency anemia, Hematochezia Providers: Buck Lerner DO Medicines: Monitored Anesthesia Care Patient Profile: This is a 66 year old female. Refer to note in patient chart for documentation of history and physical. Patient has symptoms. The symptoms first began 02,. Complications: No immediate complications. Procedure: Pre-Anesthesia Assessment: - Prior to the procedure, a History and Physical was performed, and patient medications and allergies were reviewed. The patient is competent. The risks and benefits of the procedure and the sedation options and risks were discussed with the patient. All questions were answered and informed consent was obtained. Patient identification and proposed procedure were verified by the physician in the pre-procedure area. Mental Status Examination: alert and oriented. Airway Examination: normal oropharyngeal airway and neck mobility. Respiratory Examination: clear to auscultation. CV Examination: normal. Prophylactic Antibiotics: The patient does not require prophylactic antibiotics. Prior Anticoagulants: The patient has taken no previous anticoagulant or antiplatelet agents. ASA Grade Assessment: II - A patient with mild systemic disease. After reviewing the risks and benefits, the patient was deemed in satisfactory condition to undergo the procedure. The anesthesia plan was to use moderate sedation / analgesia (conscious sedation). Immediately prior to administration of medications, the patient was re-assessed for adequacy to receive sedatives. The heart rate, respiratory rate, oxygen saturations, blood pressure, adequacy of pulmonary ventilation, and response to care were monitored throughout the procedure. The physical status of the patient was re-assessed after the procedure. After obtaining informed consent, the endoscope was passed under direct vision. Throughout the procedure, the patient's blood pressure, pulse, and oxygen saturations were monitored continuously. The Colonoscope was introduced through the mouth, and advanced to the second part of duodenum. The upper GI endoscopy was accomplished without difficulty. The patient tolerated the procedure well. Scope In: 3:59:46 PM Scope Out: 4:02:24 PM Total Procedure Duration Time 0 hours 2 minutes 38 seconds Findings: The examined esophagus was normal. Patchy moderate inflammation characterized by erythema was found in the stomach. Biopsies were taken with a cold forceps for histology. The second portion of the duodenum was normal. Biopsies were taken with a cold forceps for histology. Verification of patient identification for the specimen was done. Estimated blood loss was minimal. Impression: - Normal esophagus. - Chronic gastritis. Biopsied. - Normal second portion of the duodenum. Biopsied. Recommendation: - Discharge patient to home. - Resume previous diet. - Continue present medications. - Await pathology results. - Repeat upper endoscopy for surveillance based on pathology results. Procedure Code(s): --- Professional --- 60868, Esophagogastroduodenoscopy, flexible, transoral; with biopsy, single or multiple CPT copyright 2017 [employer]. All rights reserved. The codes documented in this report are preliminary and upon interactive digital media specialist review may be revised to meet current compliance requirements. Buck Lerner DO 10/24/2021 4:48:14 PM This report has been signed electronically. Number of Addenda: 1 Note Initiated On: 10/24/2021 3:35 PM Addendum Number: 1 Addendum Date: 12/07/2021 6:05:55 AM MAC was used as sedation for this procedure. Buck Lerner DO 12/07/2021 6:05:59 AM This report has been signed electronically.
--- NOTE | 2021-10-24 16:49 | OP.CCLET_ITS ---
12/07/2021 Velia Archuleta [address] [place] [address] Re : Upper GI endoscopy procedure for Sivan Guerrier Dear Dr. Archuleta This procedure was performed on Sunday, October 24, 2021. My impressions and recommendations are as follows: Impressions : - Normal esophagus. - Chronic gastritis. Biopsied. - Normal second portion of the duodenum. Biopsied. Recommendations : - Discharge patient to home. - Resume previous diet. - Continue present medications. - Await pathology results. - Repeat upper endoscopy for surveillance based on pathology results. My findings are described in the full procedure note, which is enclosed. If I can be of further assistance, please feel free to contact me at . Sincerely, Buck Lerner, 10/24/2021 4:48:14 PM This report has been signed electronically.
--- NOTE | 2021-10-24 16:57 | OP.COLON_ITS ---
Patient Name: Sivan Guerrier Procedure Date: 10/24/2021 4:02 PM Date of : 1955 Age: 66 Procedure: Colonoscopy Indications: Hematochezia Providers: Buck Lerner DO Medicines: Monitored Anesthesia Care Patient Profile: This is a 66 year old female. Refer to note in patient chart for documentation of history and physical. Patient has symptoms. The symptoms first began 02,. Last Colonoscopy: more than 10 years ago. Complications: No immediate complications. Procedure: Pre-Anesthesia Assessment: - Prior to the procedure, a History and Physical was performed, and patient medications and allergies were reviewed. The patient is competent. The risks and benefits of the procedure and the sedation options and risks were discussed with the patient. All questions were answered and informed consent was obtained. Patient identification and proposed procedure were verified by the physician in the pre-procedure area. Mental Status Examination: alert and oriented. Airway Examination: normal oropharyngeal airway and neck mobility. Respiratory Examination: clear to auscultation. CV Examination: normal. Prophylactic Antibiotics: The patient does not require prophylactic antibiotics. Prior Anticoagulants: The patient has taken no previous anticoagulant or antiplatelet agents. ASA Grade Assessment: II - A patient with mild systemic disease. After reviewing the risks and benefits, the patient was deemed in satisfactory condition to undergo the procedure. The anesthesia plan was to use moderate sedation / analgesia (conscious sedation). Immediately prior to administration of medications, the patient was re-assessed for adequacy to receive sedatives. The heart rate, respiratory rate, oxygen saturations, blood pressure, adequacy of pulmonary ventilation, and response to care were monitored throughout the procedure. The physical status of the patient was re-assessed after the procedure. After I obtained informed consent, the scope was passed under direct vision. Throughout the procedure, the patient's blood pressure, pulse, and oxygen saturations were monitored continuously. The Colonoscope was introduced through the anus and advanced to the terminal ileum. The colonoscopy was performed without difficulty. The patient tolerated the procedure well. The quality of the bowel preparation was good. Scope In: 4:05:24 PM Scope Out: 4:30:12 PM Total Procedure Duration Time 0 hours 24 minutes 48 seconds Findings: The perianal exam findings include anal fissure, internal hemorrhoids that prolapse with straining, but spontaneously regress to the resting position (Grade II) and hypertrophied anal papilla(e). An area of significantly congested mucosa was found in the rectum. Biopsies were taken with a cold forceps for histology. Verification of patient identification for the specimen was done. Estimated blood loss was minimal. Three sessile polyps were found in the sigmoid colon, transverse colon and ascending colon. The polyps were 1 to 2 mm in size. These polyps were removed with a hot snare. Resection and retrieval were complete. Verification of patient identification for the specimen was done. Estimated blood loss was minimal. Multiple small diffuse angiodysplastic lesions with bleeding were found at the hepatic flexure, in the ascending colon and in the cecum. Coagulation for hemostasis using monopolar probe was successful. Estimated blood loss was minimal. Impression: - Anal fissure, internal hemorrhoids that prolapse with straining, but spontaneously regress to the resting position (Grade II) and hypertrophied anal papilla(e) found on perianal exam. - Congested mucosa in the rectum. Biopsied. - Three 1 to 2 mm polyps in the sigmoid colon, in the transverse colon and in the ascending colon, removed with a hot snare. Resected and retrieved. - Multiple bleeding colonic angiodysplastic lesions. Treated with a monopolar probe. Recommendation: - Repeat colonoscopy in 3 years for surveillance based on pathology results. -Hydrocortisone retention 300 mg enema at night x 21 days for the excoriation associated with rectal prolapse -MiraLAX 17 g daily for ischemic colitis -Dicyclomine 20 mg p.o. every 8 hours as needed for abdominal cramping - Continue present medications. Procedure Code(s): --- Professional --- 83607, 59, Colonoscopy, flexible; with control of bleeding, any method 96398, Colonoscopy, flexible; with removal of tumor(s), polyp(s), or other lesion(s) by snare technique 08655, 59, Colonoscopy, flexible; with biopsy, single or multiple CPT copyright 2017 [employer]. All rights reserved. The codes documented in this report are preliminary and upon computer animator review may be revised to meet current compliance requirements. Buck Lerner DO 10/24/2021 4:57:15 PM This report has been signed electronically. Number of Addenda: 1 Note Initiated On: 10/24/2021 4:02 PM Addendum Number: 1 Addendum Date: 12/07/2021 6:06:08 AM MAC was used as sedation for this procedure. Buck Lerner DO 12/07/2021 6:06:13 AM This report has been signed electronically.
--- NOTE | 2021-10-24 16:58 | OP.CCLET_ITS ---
12/07/2021 Velia Archuleta [address] [place] [address] Re : Colonoscopy procedure for Sivan Guerrier Dear Dr. Archuleta This procedure was performed on Sunday, October 24, 2021. My impressions and recommendations are as follows: Impressions : - Anal fissure, internal hemorrhoids that prolapse with straining, but spontaneously regress to the resting position (Grade II) and hypertrophied anal papilla(e) found on perianal exam. - Congested mucosa in the rectum. Biopsied. - Three 1 to 2 mm polyps in the sigmoid colon, in the transverse colon and in the ascending colon, removed with a hot snare. Resected and retrieved. - Multiple bleeding colonic angiodysplastic lesions. Treated with a monopolar probe. Recommendations : - Repeat colonoscopy in 3 years for surveillance based on pathology results. -Hydrocortisone retention 300 mg enema at night x 21 days for the excoriation associated with rectal prolapse -MiraLAX 17 g daily for ischemic colitis -Dicyclomine 20 mg p.o. every 8 hours as needed for abdominal cramping - Continue present medications. My findings are described in the full procedure note, which is enclosed. If I can be of further assistance, please feel free to contact me at . Sincerely, Buck Friend, 10/24/2021 4:57:15 PM This report has been signed electronically.
[2021-10-24] MEDS: SEVELAMER CARBONATE 800 MG TABLET PO (17:25)
[2021-10-24] MEDS: traZODone 100 MG Tablet 200 MG PO (21:29)
[2021-10-24] MEDS: Atorvastatin Calcium 10 MG Tablet PO (21:29)
[2021-10-24] MEDS: Cholecalciferol (VIT D3) 25 MCG TABLET (1,000 UNITS) PO (21:30)
[2021-10-24] MEDS: Pramipexole Di-HCl 1 MG Tablet PO (21:30)
[2021-10-24] MEDS: MELATONIN 10 MG TABLET PO (21:30)
[2021-10-25 00:10] LABS: Bedside Glucose 112 mg/dL (74-106)
[2021-10-25 00:20] LABS: Bedside Glucose 104 mg/dL (74-106)
[2021-10-25 04:40] VITALS: BP 131/54; PULSE 72; RESP 18; TEMP 37; O2SAT 96
[2021-10-25] MEDS: Levothyroxine 88 MCG Tablet PO (05:40)
[2021-10-25 07:05] LABS: Absolute Lymphocyte Count 0.35 X10^3/uL (0.83-4.51); Absolute Neutrophil Count 1.8 X10^3/uL (2.0-7.7); Eosinophil# 0.12 X10^3/uL; Eosinophils% 4.9 % (0-5); Hematocrit 25.1 % (37-47); Hemoglobin 8.1 g/dL (12.0-15.0); Lymphocyte # 0.35 X10^3/ul (0.83-4.51); Lymphocyte % 14.2 % (19-41); Mean Corp Hgb Conc 32.3 g/dL (32-36); Mean Corpuscular Hgb 30.1 pg (27.0-32.0); Mean Corpuscular Volume 93.3 fL (81-99); Mean Platelet Vol. 10.7 fl (6.2-12.0); Monocyte# 0.21 X10^3/uL; Monocyte% 8.5 % (0-10); NRBC Flagged by Analyzer 0 % (0-5); Neutrophil # 1.76 X10^3/uL (2.7-7.7); Neutrophil % 71.6 % (47-70); POSITIVE COUNT YES; POSITIVE DIFFERENTIAL YES; Platelet Count 90 K/mm3 (150-450); RBC Distribution Width CV 18.8 % (11.6-14.6); Red Blood Count 2.69 M/mm3 (4.2-5.4); White Blood Count 2.5 K/mm3 (4.4-11.0)
[2021-10-25 07:05] LABS: Bedside Glucose 124 mg/dL (74-106)
[2021-10-25 07:11] LABS: Differential Indicated SCAN CRITERIA MET
[2021-10-25 07:39] LABS: ALB/GLOB Ratio 0.8 RATIO (0.9-2.4); AST(SGOT) 28 U/L (15-37); Alanine Aminotransfer ALT/SGPT 35 U/L (13-56); Albumin, Serum 2.8 g/dL (3.2-5.0); Alkaline Phosphatase 86 U/L (45-117); Anion Gap 9 (5-15); BUN 51 mg/dL (7-18); BUN/Creat Ratio 7.2 RATIO (10-20); Calcium,Total 7.8 mg/dL (8.5-10.1); Chloride 94 mmol/L (98-107); Creatinine, Serum 7.11 mg/dL (0.55-1.02); EST Glomerular Filtration Rate 6 mL/min (>60); Est Glom Filt Rate - Afr Amer 8 mL/min (>60); Estimated Creatinine Clearance 7.19 ml/min; Globulin 3.6 g/dL (2.2-4.2); Glucose 122 mg/dL (74-106); Potassium 4.3 mmol/L (3.5-5.1); Protein, Total 6.4 g/dL (6.4-8.2); Sodium Level 132 mmol/L (136-145)
[2021-10-25 07:47] VITALS: O2SAT 96
[2021-10-25 07:47] LABS: Platelet Estimate SLT DEC (ADEQ)
[2021-10-25] MEDS: Carvedilol 12.5 MG Tablet PO (08:22)
[2021-10-25] MEDS: Tacrolimus 0.5 MG Capsule PO (08:22)
[2021-10-25] MEDS: SEVELAMER CARBONATE 800 MG TABLET PO (08:23)
[2021-10-25] MEDS: Vitamin B Comp W-C Capsule 1 CAP PO (08:23)
[2021-10-25] MEDS: Furosemide 40 MG Tablet 120 MG PO (08:23)
[2021-10-25] MEDS: Ascorbic Acid 500 MG Tablet 1000 MG PO (08:24)
[2021-10-25] MEDS: Pramipexole Di-HCl 0.5 MG Tablet PO (08:24)
[2021-10-25] MEDS: Sertraline 50 MG Tablet PO (08:25)
[2021-10-25] MEDS: Cholecalciferol (VIT D3) 25 MCG TABLET (1,000 UNITS) PO (08:25)
--- NOTE | 2021-10-25 09:15 | CASEMGMT ---
Pt has OP HD MWF at [facility] at 0630. Plan is to d/c pt today. Call to [facility] and they can run pt there today OP and pt to arrive at 1300 for 1320 chair time. Raegan-PCU charge, Kim Hwang-COREY, and Thomas-NIEVES aware, voice understanding. Pt updated on chair time, voices understanding and states no concerns. Pt voices no further questions/concerns/needs with discharge and states is anxious to get home. Alycia PICKETT CM
--- NOTE | 2021-10-25 09:23 | DCINST_ITS ---
Discharge Instructions Diet Discharge Diet: Renal Diet Activity Discharge Activity: Return to Normal Activity Dressing / Incision Call your doctor if you observe: Inability to urinate and Inability to have a bowel movement Follow Up Care Test Results: Test results from this visit will be discussed in further detail at your follow- up appointment, if applicable. Discharge Plan Admission Admit Date/Time: 10/23/21 09:28 Primary Reason for Your Visit: GI Bleed Attending Provider: Don Duval Primary Care Provider: Velia Archuleta Consulting Providers: Buck Lerner ; Barrett Strickland ; Dexter Garner ; Jag Taylor Discharge Orders/Prescriptions Prescriptions: New hydrocortisone 100 mg/60 mL enema 300 mg MT QHS 21 Days Qty: 3780 0RF polyethylene glycol 3350 [Miralax] 17 gram/dose powder 17 g PO DAILY Qty: 510 0RF dicyclomine 20 mg tablet 20 mg PO TID PRN (Reason: abdominal discomfort) Qty: 20 0RF Continued hydroxyzine HCl 25 mg tablet 25 mg PO BID PRN (Reason: Itching) ascorbic acid (vitamin C) 500 MG tablet,chewable 1,000 mg PO DAILY Label Comments: supplement cholecalciferol (vitamin D3) 1,000 UNIT tablet 1,000 unit PO BID Label Comments: bone health levothyroxine 25 mcg tablet 88 mcg PO DAILY atorvastatin 10 MG tablet 10 mg PO QHS insulin aspart U-100 [Novolog Flexpen U-100 Insulin] 100 UNITS/ML insulin pen 22 units SC 0800,1700 ropinirole 1 mg tablet 1 mg PO .QAM trazodone 150 MG tablet 200 mg PO QHS tacrolimus [Prograf] 1 MG capsule 0.5 mg PO BID vitamin B complex 1 EACH tablet 1 tablet PO DAILY torsemide 20 mg tablet 60 mg PO DAILY carvedilol 25 MG tablet 12.5 mg PO BID sevelamer carbonate [Renvela] 800 MG tablet 800 mg PO TID ropinirole 2 MG tablet extended release 24 hr 2 mg PO QHS hydrocodone-acetaminophen 5-325 mg tablet 1 tab PO Q8H PRN (Reason: pain) 2 Days Qty: 6 0RF nitroglycerin 0.4 mg Tablet, Sublingual 0.4 mg sublingual Q5M PRN (Reason: Cardiac/Chest Pain) Qty: 30 0RF pantoprazole 40 MG tablet,delayed release (DR/EC) 40 mg PO BID Qty: 60 2RF Rx Instructions: 40 mg twice daily for 8 weeks, that is 2 months sertraline [Zoloft] 50 MG tablet 50 mg PO DAILY Label Comments: depression biotin 1 mg Capsule 1 mg PO DAILY melatonin 3 mg Tablet 10 mg PO QHS insulin aspart U-100 100 unit/mL (3 mL) Insulin Pen 26 unit SUBCUT 1200 albuterol sulfate 1 PUFF inhaler 2 puff IH Q4H PRN PRN (Reason: Sob &/Or Wheezing) 30 Days Qty: 8.6 0RF Held insulin glargine [Lantus Solostar U-100 Insulin] 100 UNIT/ML insulin pen 60 unit SQ BID Hold Instructions: until follow up with pcp your blood sugars have been low while in hospital clopidogrel [Plavix] 75 mg Tablet 75 mg PO DAILY Hold Instructions: Resume on 10/27/21. Discontinued aspirin [Ecotrin Low Strength] 81 mg tablet,delayed release (DR/EC) 81 mg PO DAILY Qty: 30 0RF Rx Instructions: Hold if patient gets GI bleed, rectal bleed or vomiting blood. Stop if any external bleeding Start from 04/30/2021 Referrals / Follow Up: Velia Archuleta MD [Primary Care Provider] - Disposition Disposition (needs filled in before D/C Order can be placed): Home, Self Care
--- NOTE | 2021-10-25 09:44 | PCM.DC.SUM ---
Documented by User: Linette Hwang NP-Faith 10/25/21 09:52 Providers Date of Admission: 10/23/21 Date of Discharge: 10/25/21 Primary Care Physician: Dr. Velia Archuleta MD Consultations 10/22/21 22:15 Consult: Gastroenterology Routine Consulting Provider: Buck Lerner Reason for Consult: ABLA EMERGENT Consult: No Notified: Yes Date Notified: 10/22/21 Time Notified: 21:11 Method of Notification: ED Physician Initiated Consult: Nephrology Routine Consulting Provider: Barrett Strickland Reason for Consult: ESRD on dialysis, missed dialysis EMERGENT Consult: No Notified: Yes Date Notified: 10/23/21 Time Notified: 02:44 Method of Notification: Answering Service Reason For Visit: ACUTE GI BLEED Diagnosis Discharge Diagnosis (1) ABLA (acute blood loss anemia): Status: Acute Code(s): D62 - Acute posthemorrhagic anemia Plan 1. Acute blood loss anemia secondary to GI bleed -hemoglobin 8.4 today -GI following, EGD and colonoscopy 10/24/2021 -Continue Protonix drip -N.p.o. except for ice chips and meds -CBC daily -1 unit packed red blood cells transfused, 1 unit on hold 2. CAD status post stent -Stable -Aspirin and Plavix on hold due to GI bleed 3. Diabetes mellitus type 2 -ACH S blood sugars with sliding scale insulin ordered -Hold basal insulin 4. End-stage renal disease on dialysis -Saturday dialysis, -Nephrology consulted -Continue diuretic 5. Hyperkalemia -Receiving dialysis today -BMP daily 6. MORA cirrhosis status post liver transplant -Continue tacrolimus DVT prophylaxis-SCDs This patient was seen by Linette Hwang NP-C under the supervision of Dr. Taylor. Medications at Discharge Home Medications ascorbic acid (vitamin C) 500 mg chewable tablet 1,000 mg PO DAILY supplement 02/20/15 cholecalciferol (vitamin D3) 25 mcg (1,000 unit) tablet 1,000 unit PO BID supplement 02/20/15 atorvastatin 10 mg tablet 10 mg PO QHS cholestrol 10/19/16 insulin aspart U-100 100 unit/mL (3 mL) subcutaneous pen (Novolog Flexpen U-100 Insulin aspart) 22 units subcut 0800,1700 blood sugar 05/29/18 insulin glargine 100 unit/mL (3 mL) subcutaneous pen (Lantus Solostar U-100 Insulin) 60 unit SQ BID blood sugar 05/29/18 tacrolimus 1 mg capsule, immediate-release (Prograf) 0.5 mg PO BID REJECTION 09/10/19 trazodone 150 mg tablet 200 mg PO QHS SLEEP 09/10/19 vitamin B complex 1 tablet PO DAILY SUPPLEMENT 09/10/19 carvedilol 25 mg tablet 12.5 mg PO BID heart 02/25/20 hydroxyzine HCl 25 mg tablet 25 mg PO BID PRN Itching 05/23/20 levothyroxine 25 mcg tablet 88 mcg PO DAILY thyroid 05/23/20 ropinirole 1 mg tablet 1 mg PO .QAM 05/23/20 torsemide 20 mg tablet 60 mg PO DAILY FLUID 05/23/20 ropinirole 2 mg tablet,extended release 24 hr 2 mg PO QHS 06/10/20 sevelamer carbonate 800 mg tablet (Renvela) 800 mg PO TID 06/10/20 hydrocodone-acetaminophen 5-325mg 5mg-325mg 1 tab PO Q8H PRN pain 2 days #6 tabs 08/03/20 clopidogrel 75 mg tablet (Plavix) 75 mg PO DAILY 04/28/21 nitroglycerin 0.4 mg sublingual tablet 0.4 mg sublingual Q5M PRN Cardiac/Chest Pain #30 tabs 04/29/21 pantoprazole 40 mg tablet,delayed release 40 mg PO BID #60 tabs 04/29/21 biotin 1 mg capsule 1 mg PO DAILY 08/11/21 melatonin 3 mg tablet 10 mg PO QHS 08/11/21 sertraline 50 mg tablet (Zoloft) 50 mg PO DAILY mood 08/11/21 insulin aspart U-100 100 unit/mL (3 mL) subcutaneous pen 26 unit subcut 1200 diabetes 10/22/21 albuterol sulfate 90 mcg/actuation aerosol inhaler 2 puff IH Q4H PRN PRN Sob &/Or Wheezing 30 days #8.6 grams 10/25/21 dicyclomine 20 mg tablet 20 mg PO TID PRN abdominal discomfort #20 tabs 10/25/21 hydrocortisone 100 mg/60 mL enema 300 mg (180 mL) [place] QHS 21 days #3,780 mL 10/25/21 polyethylene glycol 3350 17 gram/dose oral powder (Miralax) 17 g PO DAILY #510 grams 10/25/21 Hospital Course Operations None Procedures Colonoscopy and EGD Summary of Care Provided Minutes Spent on Discharge: 35 Hospital Course: Patient is a 66-year-old female who initially presented with GI bleeding. Patient has a history of end-stage renal disease with dialysis, diabetes mellitus type 2, hyperkalemia, hypothyroidism. Patient received dialysis on 10/23/2021 as her regular dialysis today and underwent EGD and colonoscopy on 10/24/2021. Upon colonoscopy patient was found to have anal fissure with internal hemorrhoids that prolapse with straining but spontaneously regressed a resting position, congested mucosa in the rectum that was biopsied, 3 1 to 2 mm polyps in the sigmoid colon, transverse colon, ascending colon that were removed with a hot snare and multiple bleeding colonic angiodysplastic lesions. Patient will be discharged home with hydrocortisone enemas, MiraLAX, dicyclomine. Patient instructed that she may restart her Plavix on 10/27/2021. Patient will be instructed to follow-up with PCP and GI. Today is patient's regular dialysis day and patient's dialysis was rescheduled for 1 PM chair time. Discussed with patient who verbalized understanding. Physical Exam Const alert, oriented x3 and no apparent distress HEENT head/scalp atraumatic and moist oral mucous membranes Eyes conjunctivae normal and no scleral icterus Neck no lymphadenopathy and supple Resp normal respiratory effort, normal air movement and clear to auscultation bilaterally Effort and Inspection: able to speak in complete sentences and symmetric chest movement Cardio regular rate, regular rhythm, S1 normal heart sound and S2 normal heart sound GI normal to inspection, nondistended, normoactive bowel sounds, soft to palpation and non-tender Extremity normal to inspection and full ROM Neuro oriented x3, moves all extremities, no focal motor deficits and no sensory deficits noted Sensorium / Orientation: awake and alert Psych affect normal Weight / BMI Weight Weight: 254 lb 10.142 oz Body Mass Index (BMI) 42.3 ABG / Lab / Microbiology Data Result Diagrams: 10/25/21 06:05 10/25/21 06:05 Laboratory: Laboratory Results - last 24 hr 10/24/21 12:21: POC Glucose 125 H 10/24/21 17:28: POC Glucose 104 10/24/21 23:48: POC Glucose 112 H 10/25/21 05:39: POC Glucose 124 H 10/25/21 06:05: WBC 2.5 L, RBC 2.69 L, Hgb 8.1 L, Hct 25.1 L, MCV 93.3, MCH 30.1, MCHC 32.3, RDW Std Deviation 64.0 H, RDW Coeff of Tami 18.8 H, Plt Count 90 L, MPV 10.7, Immature Gran % (Auto) 0.800, Neut % (Auto) 71.6 H, Lymph % (Auto) 14.2 L, Kershaw % (Auto) 8.5, Eos % (Auto) 4.9, Baso % (Auto) 0.0, Absolute Neuts (auto) 1.8 L, Absolute Lymphs (auto) 0.35 L, Nucleated RBC % 0, Diff Path Review July, Platelet Estimate SLT 10/25/21 06:05: Sodium 132 L, Potassium 4.3, Chloride 94 L, Carbon Dioxide 29.0, Anion Gap 9, BUN 51 H, Creatinine 7.11 H, Estim Creat Clear Calc 7.19, Est GFR (MDRD) Af Amer 8 L, Est GFR (MDRD) Non-Af 6 L, BUN/Creatinine Ratio 7.2 L, Glucose 122 H, Calcium 7.8 L, Total Bilirubin 0.70, AST 28, ALT 35, Alkaline Phosphatase 86, Total Protein 6.4, Albumin 2.8 L, Globulin 3.6, Albumin/Globulin Ratio 0.8 L Microbiology: Microbiology 10/22/21 20:10 Stool Stool Occult Blood (TOMASZ) - Final Occult Blood Positive D/C Instructions Discharge Diet: Renal Diet Call your doctor if you observe: Inability to urinate and Inability to have a bowel movement Meaningful Use Info Meaningful Use Diagnoses (Choose all that apply): None applicable Discharge Plan Admission Admit Date/Time: 10/23/21 09:28 Primary Reason for Your Visit: GI Bleed Attending Provider: Don Duval Primary Care Provider: Velia Archuleta Consulting Providers: Buck Lerner ; Barrett Strickland ; Dexter Garner ; Jag Taylor Discharge Orders/Prescriptions Prescriptions: New hydrocortisone 100 mg/60 mL enema 300 mg [place] QHS 21 Days Qty: 3780 0RF polyethylene glycol 3350 [Miralax] 17 gram/dose powder 17 g PO DAILY Qty: 510 0RF dicyclomine 20 mg tablet 20 mg PO TID PRN (Reason: abdominal discomfort) Qty: 20 0RF Continued hydroxyzine HCl 25 mg tablet 25 mg PO BID PRN (Reason: Itching) ascorbic acid (vitamin C) 500 MG tablet,chewable 1,000 mg PO DAILY Label Comments: supplement cholecalciferol (vitamin D3) 1,000 UNIT tablet 1,000 unit PO BID Label Comments: bone health levothyroxine 25 mcg tablet 88 mcg PO DAILY atorvastatin 10 MG tablet 10 mg PO QHS insulin aspart U-100 [Novolog Flexpen U-100 Insulin] 100 UNITS/ML insulin pen 22 units SC 0800,1700 ropinirole 1 mg tablet 1 mg PO .QAM trazodone 150 MG tablet 200 mg PO QHS tacrolimus [Prograf] 1 MG capsule 0.5 mg PO BID vitamin B complex 1 EACH tablet 1 tablet PO DAILY torsemide 20 mg tablet 60 mg PO DAILY carvedilol 25 MG tablet 12.5 mg PO BID sevelamer carbonate [Renvela] 800 MG tablet 800 mg PO TID ropinirole 2 MG tablet extended release 24 hr 2 mg PO QHS hydrocodone-acetaminophen 5-325 mg tablet 1 tab PO Q8H PRN (Reason: pain) 2 Days Qty: 6 0RF nitroglycerin 0.4 mg Tablet, Sublingual 0.4 mg sublingual Q5M PRN (Reason: Cardiac/Chest Pain) Qty: 30 0RF pantoprazole 40 MG tablet,delayed release (DR/EC) 40 mg PO BID Qty: 60 2RF Rx Instructions: 40 mg twice daily for 8 weeks, that is 2 months sertraline [Zoloft] 50 MG tablet 50 mg PO DAILY Label Comments: depression biotin 1 mg Capsule 1 mg PO DAILY melatonin 3 mg Tablet 10 mg PO QHS insulin aspart U-100 100 unit/mL (3 mL) Insulin Pen 26 unit SUBCUT 1200 albuterol sulfate 1 PUFF inhaler 2 puff IH Q4H PRN PRN (Reason: Sob &/Or Wheezing) 30 Days Qty: 8.6 0RF Held insulin glargine [Lantus Solostar U-100 Insulin] 100 UNIT/ML insulin pen 60 unit SQ BID Hold Instructions: until follow up with pcp your blood sugars have been low while in hospital clopidogrel [Plavix] 75 mg Tablet 75 mg PO DAILY Hold Instructions: Resume on 10/27/21. Discontinued aspirin [Ecotrin Low Strength] 81 mg tablet,delayed release (DR/EC) 81 mg PO DAILY Qty: 30 0RF Rx Instructions: Hold if patient gets GI bleed, rectal bleed or vomiting blood. Stop if any external bleeding Start from 04/30/2021 Referrals / Follow Up: ARTIE LORA NP-C [Non-Staff] - 11/01/21 1:00 pm Disposition Disposition (needs filled in before D/C Order can be placed): Home, Self Care Documented by User: Dr. Don Duval DO 10/25/21 18:46 Providers Date of Admission: 10/23/21 Reason For Visit: ACUTE GI BLEED Diagnosis Discharge Diagnosis (1) ABLA (acute blood loss anemia): Status: Acute Code(s): D62 - Acute posthemorrhagic anemia Medications at Discharge Home Medications ascorbic acid (vitamin C) 500 mg chewable tablet 1,000 mg PO DAILY supplement 02/20/15 cholecalciferol (vitamin D3) 25 mcg (1,000 unit) tablet 1,000 unit PO BID supplement 02/20/15 atorvastatin 10 mg tablet 10 mg PO QHS cholestrol 10/19/16 insulin aspart U-100 100 unit/mL (3 mL) subcutaneous pen (Novolog Flexpen U-100 Insulin aspart) 22 units subcut 0800,1700 blood sugar 05/29/18 insulin glargine 100 unit/mL (3 mL) subcutaneous pen (Lantus Solostar U-100 Insulin) 60 unit SQ BID blood sugar 05/29/18 tacrolimus 1 mg capsule, immediate-release (Prograf) 0.5 mg PO BID REJECTION 09/10/19 trazodone 150 mg tablet 200 mg PO QHS SLEEP 09/10/19 vitamin B complex 1 tablet PO DAILY SUPPLEMENT 09/10/19 carvedilol 25 mg tablet 12.5 mg PO BID heart 02/25/20 hydroxyzine HCl 25 mg tablet 25 mg PO BID PRN Itching 05/23/20 levothyroxine 25 mcg tablet 88 mcg PO DAILY thyroid 05/23/20 ropinirole 1 mg tablet 1 mg PO .QAM 05/23/20 torsemide 20 mg tablet 60 mg PO DAILY FLUID 05/23/20 ropinirole 2 mg tablet,extended release 24 hr 2 mg PO QHS 06/10/20 sevelamer carbonate 800 mg tablet (Renvela) 800 mg PO TID 06/10/20 hydrocodone-acetaminophen 5-325mg 5mg-325mg 1 tab PO Q8H PRN pain 2 days #6 tabs 08/03/20 clopidogrel 75 mg tablet (Plavix) 75 mg PO DAILY 04/28/21 nitroglycerin 0.4 mg sublingual tablet 0.4 mg sublingual Q5M PRN Cardiac/Chest Pain #30 tabs 04/29/21 pantoprazole 40 mg tablet,delayed release 40 mg PO BID #60 tabs 04/29/21 biotin 1 mg capsule 1 mg PO DAILY 08/11/21 melatonin 3 mg tablet 10 mg PO QHS 08/11/21 sertraline 50 mg tablet (Zoloft) 50 mg PO DAILY mood 08/11/21 insulin aspart U-100 100 unit/mL (3 mL) subcutaneous pen 26 unit subcut 1200 diabetes 10/22/21 albuterol sulfate 90 mcg/actuation aerosol inhaler 2 puff IH Q4H PRN PRN Sob &/Or Wheezing 30 days #8.6 grams 10/25/21 dicyclomine 20 mg tablet 20 mg PO TID PRN abdominal discomfort #20 tabs 10/25/21 hydrocortisone 100 mg/60 mL enema 300 mg (180 mL) NH QHS 21 days #3,780 mL 10/25/21 polyethylene glycol 3350 17 gram/dose oral powder (Miralax) 17 g PO DAILY #510 grams 10/25/21 ABG / Lab / Microbiology Data Result Diagrams: 10/25/21 06:05 10/25/21 06:05 Discharge Plan Admission Admit Date/Time: 10/23/21 09:28 Primary Reason for Your Visit: GI Bleed Attending Provider: Don Duval Primary Care Provider: Velia Archuleta Consulting Providers: Friend,Buck ; Barrett Strickland ; Dexter Garner ; Jag Taylor Discharge Orders/Prescriptions Prescriptions: New hydrocortisone 100 mg/60 mL enema 300 mg NH QHS 21 Days Qty: 3780 0RF polyethylene glycol 3350 [Miralax] 17 gram/dose powder 17 g PO DAILY Qty: 510 0RF dicyclomine 20 mg tablet 20 mg PO TID PRN (Reason: abdominal discomfort) Qty: 20 0RF Continued hydroxyzine HCl 25 mg tablet 25 mg PO BID PRN (Reason: Itching) ascorbic acid (vitamin C) 500 MG tablet,chewable 1,000 mg PO DAILY Label Comments: supplement cholecalciferol (vitamin D3) 1,000 UNIT tablet 1,000 unit PO BID Label Comments: bone health levothyroxine 25 mcg tablet 88 mcg PO DAILY atorvastatin 10 MG tablet 10 mg PO QHS insulin aspart U-100 [Novolog Flexpen U-100 Insulin] 100 UNITS/ML insulin pen 22 units SC 0800,1700 ropinirole 1 mg tablet 1 mg PO .QAM trazodone 150 MG tablet 200 mg PO QHS tacrolimus [Prograf] 1 MG capsule 0.5 mg PO BID vitamin B complex 1 EACH tablet 1 tablet PO DAILY torsemide 20 mg tablet 60 mg PO DAILY carvedilol 25 MG tablet 12.5 mg PO BID sevelamer carbonate [Renvela] 800 MG tablet 800 mg PO TID ropinirole 2 MG tablet extended release 24 hr 2 mg PO QHS hydrocodone-acetaminophen 5-325 mg tablet 1 tab PO Q8H PRN (Reason: pain) 2 Days Qty: 6 0RF nitroglycerin 0.4 mg Tablet, Sublingual 0.4 mg sublingual Q5M PRN (Reason: Cardiac/Chest Pain) Qty: 30 0RF pantoprazole 40 MG tablet,delayed release (DR/EC) 40 mg PO BID Qty: 60 2RF Rx Instructions: 40 mg twice daily for 8 weeks, that is 2 months sertraline [Zoloft] 50 MG tablet 50 mg PO DAILY Label Comments: depression biotin 1 mg Capsule 1 mg PO DAILY melatonin 3 mg Tablet 10 mg PO QHS insulin aspart U-100 100 unit/mL (3 mL) Insulin Pen 26 unit SUBCUT 1200 albuterol sulfate 1 PUFF inhaler 2 puff IH Q4H PRN PRN (Reason: Sob &/Or Wheezing) 30 Days Qty: 8.6 0RF Held insulin glargine [Lantus Solostar U-100 Insulin] 100 UNIT/ML insulin pen 60 unit SQ BID Hold Instructions: until follow up with pcp your blood sugars have been low while in hospital clopidogrel [Plavix] 75 mg Tablet 75 mg PO DAILY Hold Instructions: Resume on 10/27/21. Discontinued aspirin [Ecotrin Low Strength] 81 mg tablet,delayed release (DR/EC) 81 mg PO DAILY Qty: 30 0RF Rx Instructions: Hold if patient gets GI bleed, rectal bleed or vomiting blood. Stop if any external bleeding Start from 04/30/2021 Referrals / Follow Up: ARTIE LORA NP-C [Non-Staff] - 11/01/21 1:00 pm Disposition Disposition (needs filled in before D/C Order can be placed): Home, Self Care Charges/Coding Addendum Addendum: Patient was seen and examined today, she appears medically stable for discharge at this time. Patient's hemoglobin this morning was 8.1, she is due to have dialysis as an outpatient today. On examination she appeared in good health and spirits, she does not appear to be in any distress. Vital signs as documented. Skin warm and dry and without overt rashes. Neck without JVD, thyroid appears normal, trachea is midline, neck is supple. Lungs clear, normal air movement was noted. Heart exam notable for regular rhythm, normal sounds and absence of murmurs, rubs or gallops. Abdomen unremarkable and without evidence of organomegaly, masses, or abdominal aortic enlargement, bowel sounds are present in all 4 quadrants, no abdominal tenderness was noted. Extremities-generalized lower extremity edema was noted, no cyanosis was noted, no clubbing was noted. Neuro: Cranial nerves II through XII are grossly intact, no focal motor deficits were noted, sensation to light touch and pinprick is intact, motor exam 5/5 throughout. Psych: Patient is alert and oriented x3, she does not appear anxious or depressed, she does not appear agitated. 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 Total clinical time spent by myself addressing the patient's medical issues, reviewing the data, and collaborating with patient's care team: 25-minute Visit Charges Inpatient E&M: [id number] Disch Hosp
[2021-10-25 09:55] VITALS: BP 160/62; PULSE 78; RESP 20; TEMP 36.4; O2SAT 97
[2021-10-25 10:19] LABS: Pathologist Review Reviewed
--- NOTE | 2021-10-25 10:27 | PHA.DC.MR ---
Pharmacy Service has performed discharge medication reconciliation for this patient. The patient's discharge medication list was reviewed for discrepancies and discrepancies were resolved. Medication education papers prepared but patient was already discharged when counseling was attempted. Home Medications ascorbic acid (vitamin C) 500 mg chewable tablet 1,000 mg PO DAILY supplement 02/20/15 cholecalciferol (vitamin D3) 25 mcg (1,000 unit) tablet 1,000 unit PO BID supplement 02/20/15 atorvastatin 10 mg tablet 10 mg PO QHS cholestrol 10/19/16 insulin aspart U-100 100 unit/mL (3 mL) subcutaneous pen (Novolog Flexpen U-100 Insulin aspart) 22 units subcut 0800,1700 blood sugar 05/29/18 insulin glargine 100 unit/mL (3 mL) subcutaneous pen (Lantus Solostar U-100 Insulin) 60 unit SQ BID blood sugar 05/29/18 tacrolimus 1 mg capsule, immediate-release (Prograf) 0.5 mg PO BID REJECTION 09/10/19 trazodone 150 mg tablet 200 mg PO QHS SLEEP 09/10/19 vitamin B complex 1 tablet PO DAILY SUPPLEMENT 09/10/19 carvedilol 25 mg tablet 12.5 mg PO BID heart 02/25/20 hydroxyzine HCl 25 mg tablet 25 mg PO BID PRN Itching 05/23/20 levothyroxine 25 mcg tablet 88 mcg PO DAILY thyroid 05/23/20 ropinirole 1 mg tablet 1 mg PO .QAM 05/23/20 torsemide 20 mg tablet 60 mg PO DAILY FLUID 05/23/20 ropinirole 2 mg tablet,extended release 24 hr 2 mg PO QHS 06/10/20 sevelamer carbonate 800 mg tablet (Renvela) 800 mg PO TID 06/10/20 hydrocodone-acetaminophen 5-325mg 5mg-325mg 1 tab PO Q8H PRN pain 2 days #6 tabs 08/03/20 clopidogrel 75 mg tablet (Plavix) 75 mg PO DAILY 04/28/21 nitroglycerin 0.4 mg sublingual tablet 0.4 mg sublingual Q5M PRN Cardiac/Chest Pain #30 tabs 04/29/21 pantoprazole 40 mg tablet,delayed release 40 mg PO BID #60 tabs 04/29/21 biotin 1 mg capsule 1 mg PO DAILY 08/11/21 melatonin 3 mg tablet 10 mg PO QHS 08/11/21 sertraline 50 mg tablet (Zoloft) 50 mg PO DAILY mood 08/11/21 insulin aspart U-100 100 unit/mL (3 mL) subcutaneous pen 26 unit subcut 1200 diabetes 10/22/21 albuterol sulfate 90 mcg/actuation aerosol inhaler 2 puff IH Q4H PRN PRN Sob &/Or Wheezing 30 days #8.6 grams 10/25/21 dicyclomine 20 mg tablet 20 mg PO TID PRN abdominal discomfort #20 tabs 10/25/21 hydrocortisone 100 mg/60 mL enema 300 mg (180 mL) [place] QHS 21 days #3,780 mL 10/25/21 polyethylene glycol 3350 17 gram/dose oral powder (Miralax) 17 g PO DAILY #510 grams 10/25/21
[2021-10-26 09:54] LABS: Pathologist Review Reviewed
== END 2021-10-25 10:25 | disposition home or self-care (01) | DRG 377 ==
LOC: ED 20:52 → PCU 21:21
PROVIDERS: Internal Medicine; Internal Medicine Gastroenterology; Nurse Practitioner Family; Admitting Provider Hospitalist; Emergency Provider Emergency Medicine; PCP Internal Medicine; Visit Provider Internal Medicine
PROC: 0DJD8ZZ Inspection of Lower Intestinal Tract, Via Natural or Artificial Opening Endoscopic (ICD-10-PCS; CPT 45378; principal; 2021-10-24 14:55)
DX: K55.21 Angiodysplasia of colon with hemorrhage (principal); N18.6 End stage renal disease; D61.818 Other pancytopenia; I12.0 Hypertensive chronic kidney disease with stage 5 chronic kidney disease or end stage renal disease; D62 Acute posthemorrhagic anemia; Z68.41 Body mass index [BMI] 40.0-44.9, adult; Z94.4 Liver transplant status; D63.1 Anemia in chronic kidney disease; E11.22 Type 2 diabetes mellitus with diabetic chronic kidney disease; Z79.4 Long term (current) use of insulin; J44.9 Chronic obstructive pulmonary disease, unspecified; Z99.2 Dependence on renal dialysis; E66.01 Morbid (severe) obesity due to excess calories; K75.81 Nonalcoholic steatohepatitis (NASH); E87.5 Hyperkalemia; I25.10 Atherosclerotic heart disease of native coronary artery without angina pectoris; K60.2 Anal fissure, unspecified; K29.50 Unspecified chronic gastritis without bleeding; E03.9 Hypothyroidism, unspecified; I44.7 Left bundle-branch block, unspecified; I44.0 Atrioventricular block, first degree; K64.1 Second degree hemorrhoids; D12.2 Benign neoplasm of ascending colon; D12.3 Benign neoplasm of transverse colon; D12.5 Benign neoplasm of sigmoid colon; K29.71 Gastritis, unspecified, with bleeding; Z91.19 Patient's noncompliance with other medical treatment and regimen; Z95.5 Presence of coronary angioplasty implant and graft; Z90.49 Acquired absence of other specified parts of digestive tract; Z90.710 Acquired absence of both cervix and uterus; Z79.02 Long term (current) use of antithrombotics/antiplatelets; Z79.82 Long term (current) use of aspirin; Z79.899 Other long term (current) drug therapy
CPT/HCPCS: 36415; 80048; 80053; 80076; 82274; 82962; 85014; 85018; 85025; 85610; 85730; 86850; 86900; 86901; 86920; 86922; 88305; 90937; 93005; 94640; 97802; 99284; J7030; J7040; J7120; P9016; A4216; G0257; J0610; J2405

== ENCOUNTER 2021-12-05 19:48 | Inpatient (IN) | payer MEDICARE, MEDICAID, SELFPAY ==
[2021-12-05 19:50] VITALS: BP 146/56; PULSE 100; RESP 18; TEMP 37.2; O2SAT 96; BMI 41.5
[2021-12-05 20:09] VITALS: O2SAT 96
--- NOTE | 2021-12-05 20:25 | EKG12_ITS ---
Test Reason : DYSRHYTHMIA Blood Pressure : / mmHG Vent. Rate : 093 BPM Atrial Rate : 093 BPM P-R Int : 200 ms QRS Dur : 126 ms QT Int : 398 ms P-R-T Axes : 078 -57 053 degrees QTc Int : 494 ms Sinus rhythm with Premature atrial complexes Left axis deviation Left bundle branch block Abnormal ECG Confirmed by CHRISTAL FOFANA, ARMANDO ([id number]), news video editor STEPHANIE PHAM ([id number]) on 12/07/2021 8:01:49 AM Referred By: EUN Confirmed By:ARMANDO SIEGEL MD
--- NOTE | 2021-12-05 20:26 | EX.ED.DYSGE1 ---
HPI History of Present Illness Chief Complaint: Shortness of Breath Informant: patient Onset/Context/Timing Onset: Days (5 days) Context: Gradual Onset Narrative Narrative: Patient presents secondary to shortness of breath and generalized weakness. She states she is felt very nauseated over the past 5 days with shortness of breath. She does not have significant cough. She had temperature right around 100 today. She does have a history of liver transplant has been able to keep her rejection meds in. She has had poor p.o. intake. She does dialysis on Saturday, Saturday, and Saturday. She missed her treatment yesterday. [facility] Medical History Anemia Anemia in chronic kidney disease Back pain Blister Cancer Cardiology follow-up encounter Celiac disease Chronic kidney disease, stage 3 Chronic kidney failure Chronic renal failure, stage 5 Cirrhosis COPD (chronic obstructive pulmonary disease) Diabetes Dialysis patient DVT (deep venous thrombosis) ESRD (end stage renal disease) Gastric reflux GERD (gastroesophageal reflux disease) History of echocardiogram (~01/22/20) History of edema History of irregular heartbeat History of renal disease History of stress test (~12/07/19) History of uterine cancer Hx of Krueger's palsy Hypertension Infection involving suture with abscess Insulin dependent diabetes mellitus [employer] Non-smoker Osteoporosis Pancytopenia Sleep apnea Wears dentures Wears glasses Home Medications ascorbic acid (vitamin C) 500 mg chewable tablet 1,000 mg PO DAILY supplement 02/20/15 [History Last Taken 09/09/19] cholecalciferol (vitamin D3) 25 mcg (1,000 unit) tablet 1,000 unit PO BID supplement 02/20/15 [History Last Taken 09/09/19] atorvastatin 10 mg tablet 10 mg PO QHS cholestrol 10/19/16 [History Last Taken 09/09/19] insulin aspart U-100 100 unit/mL (3 mL) subcutaneous pen (Novolog Flexpen U-100 Insulin aspart) 22 units subcut 0800,1700 blood sugar 05/29/18 [History Last Taken 09/09/19] insulin glargine 100 unit/mL (3 mL) subcutaneous pen (Lantus Solostar U-100 Insulin) 60 unit SQ BID blood sugar 05/29/18 [History Last Taken 09/09/19] tacrolimus 1 mg capsule, immediate-release (Prograf) 0.5 mg PO BID REJECTION 09/10/19 [History Last Taken 04/27/21] trazodone 150 mg tablet 200 mg PO QHS SLEEP 09/10/19 [History Last Taken 09/09/19] vitamin B complex 1 tablet PO DAILY SUPPLEMENT 09/10/19 [History Last Taken 09/09/19] carvedilol 25 mg tablet 12.5 mg PO BID heart 02/25/20 [History Last Taken 08/03/20] hydroxyzine HCl 25 mg tablet 25 mg PO BID PRN Itching 05/23/20 [History Last Taken Unknown] levothyroxine 25 mcg tablet 88 mcg PO DAILY thyroid 05/23/20 [History Last Taken 04/28/21] ropinirole 1 mg tablet 1 mg PO .QAM 05/23/20 [History Last Taken 06/16/20] torsemide 20 mg tablet 60 mg PO DAILY FLUID 05/23/20 [History Last Taken Unknown] ropinirole 2 mg tablet,extended release 24 hr 2 mg PO QHS 06/10/20 [History Last Taken Unknown] sevelamer carbonate 800 mg tablet (Renvela) 800 mg PO TID 06/10/20 [History Last Taken Unknown] hydrocodone-acetaminophen 5-325mg 5mg-325mg 1 tab PO Q8H PRN pain 2 days #6 tabs 08/03/20 [Rx Last Taken Unknown] clopidogrel 75 mg tablet (Plavix) 75 mg PO DAILY 04/28/21 [History Last Taken Unknown] nitroglycerin 0.4 mg sublingual tablet 0.4 mg sublingual Q5M PRN Cardiac/Chest Pain #30 tabs 04/29/21 [Rx Last Taken Unknown] pantoprazole 40 mg tablet,delayed release 40 mg PO BID #60 tabs 04/29/21 [Rx Last Taken Unknown] biotin 1 mg capsule 1 mg PO DAILY 08/11/21 [History Last Taken Unknown] melatonin 3 mg tablet 10 mg PO QHS 08/11/21 [History Last Taken Unknown] sertraline 50 mg tablet (Zoloft) 50 mg PO DAILY mood 08/11/21 [History Last Taken Unknown] insulin aspart U-100 100 unit/mL (3 mL) subcutaneous pen 26 unit subcut 1200 diabetes 10/22/21 [History Last Taken Unknown] albuterol sulfate 90 mcg/actuation aerosol inhaler 2 puff IH Q4H PRN PRN Sob &/Or Wheezing 30 days #8.6 grams 10/25/21 [Rx Last Taken Unknown] dicyclomine 20 mg tablet 20 mg PO TID PRN abdominal discomfort #20 tabs 10/25/21 [Rx Last Taken Unknown] hydrocortisone 100 mg/60 mL enema 300 mg (180 mL) [place] QHS 21 days #3,780 mL 10/25/21 [Rx Last Taken Unknown] polyethylene glycol 3350 17 gram/dose oral powder (Miralax) 17 g PO DAILY #510 grams 10/25/21 [Rx Last Taken Unknown] diphenoxylate-atropine 2.5 mg-0.025 mg tablet (Lomotil) 1 tab PO TID PRN diarrhea #90 tabs 10/27/21 [Rx Last Taken Unknown] Allergy/AdvReac Type Severity Reaction Status Date / Time amlodipine [From Norvasc] Allergy Severe Hives Verified 12/05/21 19:54 ampicillin sodium Allergy Severe Hives Verified 12/05/21 19:54 [From Unasyn] buspirone HCl [From BuSpar] Allergy Severe Hives Verified 12/05/21 19:54 cefadroxil [From Duricef] Allergy Severe Hives Verified 12/05/21 19:54 lisinopril Allergy Severe Swelling Verified 12/05/21 19:54 naproxen Allergy Severe Hives Verified 12/05/21 19:54 niacin Allergy Severe Hives Verified 12/05/21 19:54 [From Niaspan Extended-Release] sulbactam sodium Allergy Severe Hives Verified 12/05/21 19:54 [From Unasyn] Sulfa (Sulfonamide Allergy Severe Hives Verified 12/05/21 19:54 Antibiotics) cephalexin [From Keflex] Allergy Hives Verified 12/05/21 19:54 omeprazole AdvReac Severe Other Verified 08/14/21 15:41 losartan AdvReac Swelling Verified 08/14/21 15:41 Family History Mother Diabetes Anemia Father Hypertension LUNG/RESPIRATORY DISEASE Surgical History History of appendectomy History of cholecystectomy History of coronary artery stent placement History of left knee surgery History of left salpingo-oophorectomy History of liver transplant History of radical hysterectomy History of ventral hernia repair S/P arteriovenous (AV) fistula creation (~06/16/20) Social History Smoking Status: Never smoker substance use type: does not use ROS ROS ED Constitutional Constitutional ED: Reports fever(s); Denies chills Eyes Eyes: Denies change in vision or discharge from eye(s) ENT ENT ED: Denies discharge from eye(s), rhinorrhea or sore throat Cardiovascular Cardiovascular: Denies chest pain or palpitations Respiratory/Chest Respiratory/Chest: Reports dyspnea; Denies cough Gastrointestinal Gastrointestinal: Reports abdominal pain, diarrhea and nausea; Denies vomiting Musculoskeletal Musculoskeletal: Denies back pain or extremity pain Integumentary Denies Abrasions or rash Neurologic Neurologic: Reports weakness; Denies headache(s) Allergic/Immunologic Allergic/Immunologic ED: Denies lip swelling or urticaria EXAM Physical Exam Const Vital Signs: 12/05/21 19:50 12/05/21 20:09 12/05/21 22:03 Temperature 98.9 F Temperature Source Temporal Pulse Rate 100 86 Respiratory Rate 18 22 H Respiratory Effort Normal Respiratory Depth Normal Respiratory Pattern Normal Blood Pressure 146/56 H Blood Pressure Mean 86 Pulse Ox 96 97 Oxygen Delivery Method Room Air Room Air Room Air Positive well nourished and well developed General Appearance ED: well developed HEENT Reports normocephalic and head/scalp atraumatic Eyes PERRL and EOMs intact bilaterally Neck supple Chest Wall inspection of chest normal and palpation of chest normal Resp normal respiratory effort and clear to auscultation bilaterally Cardio regular rate and regular rhythm GI GI Narrative: Mild anterior abdominal wall tenderness palpation. Palpable hernia on the left that is soft. Hypoactive but present bowel sounds noted. Palpation: soft Extremity normal to inspection Neuro oriented x3 and no sensory deficits noted Sensorium / Orientation: alert Motor Exam: strength 5/5 throughout Psych mental status grossly normal Skin no rashes or lesions noted MDM MDM MDM Narrative Medical decision making narrative: EKG, lab work obtained. Patient given p.o. Phenergan due to QTC. Lab Data Attestation: I reviewed the patient's lab results. Labs: Laboratory Results - last 24 hr 12/05/21 12/05/21 20:41 20:41 WBC 6.7 RBC 3.27 L Hgb 9.8 L Hct 31.5 L MCV 96.3 MCH 30.0 MCHC 31.1 L RDW Std Deviation 68.2 H RDW Coeff of Tami 19.2 H Plt Count 67 L MPV 11.2 Immature Gran % (Auto) 0.900 Neut % (Auto) 90.3 H Lymph % (Auto) 3.7 L [place] % (Auto) 4.9 Eos % (Auto) 0.1 Baso % (Auto) 0.1 Absolute Neuts (auto) 6.1 Absolute Lymphs (auto) 0.25 L Nucleated RBC % 0 Differential Comment SEE COMMENTS Platelet Estimate MOD DEC RBC Morphology N CHROM Anisocytosis RARE Macrocytosis RARE Sodium 130 L Potassium 6.5 H* Chloride 96 L Carbon Dioxide 23.0 Anion Gap 11 BUN 69 H Creatinine 8.80 H* Estim Creat Clear Calc 5.81 Est GFR (MDRD) Af Amer 6 L Est GFR (MDRD) Non-Af 5 L BUN/Creatinine Ratio 7.8 L Glucose 284 H Calcium 8.8 Total Bilirubin 0.80 Direct Bilirubin 0.27 AST 30 ALT 36 Alkaline Phosphatase 91 Total Protein 7.1 Albumin 3.0 L Globulin 4.1 Lipase 95 Radiography Diagnostic Testing: Clinical Impression(s) from Imaging Studies Chest X-Ray 12/05/21 20:49 IMPRESSION: No acute radiographic abnormalities. Electronically Signed: Kiko Holloway MD at 22:13 EDT , EKG Initial EKG: Attestation: I personally reviewed and interpreted this EKG as follows: Interpretation: Sinus Rhythm (Sinus at 93 with no acute ischemia. QTC is 494. Left bundle branch block is noted.) Follow-up EKG: Attestation: I personally reviewed and interpreted this EKG as follows: Interpretation: Sinus Rhythm (Sinus 85 with PACs. No acute ischemia.) Treatment and Re-Evaluation Narrative: CBC reveals normal white count. Hemoglobin is 9.8. Chemistry studies reveal a sodium of 130 with a potassium of 6.5. BUN is 69 and creatinine is 8.80. Glucose is 284. LFTs and lipase normal. Patient is given albuterol along with insulin and glucose to shift potassium intracellularly. I will speak with Dr. Spear to ensure patient can receive dialysis tomorrow. I will also with hospitalist regarding observation. Discharge Plan Triage Chief Complaint: Shortness of Breath ED Provider: Dian Daniel Dx/Rx/DC Orders Clinical Impression: Nausea, Hyperkalemia, Chronic renal failure Prescriptions: No Action hydroxyzine HCl 25 mg tablet 25 mg PO BID PRN (Reason: Itching) ascorbic acid (vitamin C) 500 MG tablet,chewable 1,000 mg PO DAILY Label Comments: supplement cholecalciferol (vitamin D3) 1,000 UNIT tablet 1,000 unit PO BID Label Comments: bone health levothyroxine 25 mcg tablet 88 mcg PO DAILY atorvastatin 10 MG tablet 10 mg PO QHS insulin aspart U-100 [Novolog Flexpen U-100 Insulin] 100 UNITS/ML insulin pen 22 units SC 0800,1700 insulin glargine [Lantus Solostar U-100 Insulin] 100 UNIT/ML insulin pen 60 unit SQ BID Hold Instructions: until follow up with pcp your blood sugars have been low while in hospital ropinirole 1 mg tablet 1 mg PO .QAM trazodone 150 MG tablet 200 mg PO QHS tacrolimus [Prograf] 1 MG capsule 0.5 mg PO BID vitamin B complex 1 EACH tablet 1 tablet PO DAILY torsemide 20 mg tablet 60 mg PO DAILY carvedilol 25 MG tablet 12.5 mg PO BID sevelamer carbonate [Renvela] 800 MG tablet 800 mg PO TID ropinirole 2 MG tablet extended release 24 hr 2 mg PO QHS hydrocodone-acetaminophen 5-325 mg tablet 1 tab PO Q8H PRN (Reason: pain) 2 Days Qty: 6 0RF clopidogrel [Plavix] 75 mg Tablet 75 mg PO DAILY Hold Instructions: Resume on 10/27/21. nitroglycerin 0.4 mg Tablet, Sublingual 0.4 mg sublingual Q5M PRN (Reason: Cardiac/Chest Pain) Qty: 30 0RF pantoprazole 40 MG tablet,delayed release (DR/EC) 40 mg PO BID Qty: 60 2RF Rx Instructions: 40 mg twice daily for 8 weeks, that is 2 months sertraline [Zoloft] 50 MG tablet 50 mg PO DAILY Label Comments: depression biotin 1 mg Capsule 1 mg PO DAILY melatonin 3 mg Tablet 10 mg PO QHS insulin aspart U-100 100 unit/mL (3 mL) Insulin Pen 26 unit SUBCUT 1200 hydrocortisone 100 mg/60 mL enema 300 mg [place] QHS 21 Days Qty: 3780 0RF polyethylene glycol 3350 [Miralax] 17 gram/dose powder 17 g PO DAILY Qty: 510 0RF dicyclomine 20 mg tablet 20 mg PO TID PRN (Reason: abdominal discomfort) Qty: 20 0RF albuterol sulfate 1 PUFF inhaler 2 puff IH Q4H PRN PRN (Reason: Sob &/Or Wheezing) 30 Days Qty: 8.6 0RF diphenoxylate-atropine [Lomotil] 2.5-0.025 mg tablet 1 tab PO TID PRN (Reason: diarrhea) Qty: 90 2RF Primary Care Provider: Velia Archuleta Referrals: Velia Archuleta MD [Primary Care Provider] - Disposition Disposition: Acute Care Hospital [facility]
--- NOTE | 2021-12-05 20:49 | RAD_ITS ---
INDICATION: sob EXAMINATION/TECHNIQUE: X-RAY - XR Chest 1 View COMPARISON: 09/12/2021. FINDINGS: The lungs are clear. Tortuous and calcified thoracic aorta. The heart is mildly enlarged. No pleural effusion or pneumothorax. No acute osseous abnormalities. RAD/Chest 1 View (Portable) IMPRESSION: No acute radiographic abnormalities. Electronically Signed: Kiko Holloway MD at 22:13 EDT ,
[2021-12-05 20:50] LABS: Absolute Lymphocyte Count 0.25 X10^3/uL (0.83-4.51); Absolute Neutrophil Count 6.1 X10^3/uL (2.0-7.7); Basophil# 0.01 X10^3/uL; Basophil% 0.1 % (0-1); Eosinophil# 0.01 X10^3/uL; Eosinophils% 0.1 % (0-5); Hematocrit 31.5 % (37-47); Hemoglobin 9.8 g/dL (12.0-15.0); Lymphocyte # 0.25 X10^3/ul (0.83-4.51); Lymphocyte % 3.7 % (19-41); Mean Corp Hgb Conc 31.1 g/dL (32-36); Mean Corpuscular Volume 96.3 fL (81-99); Mean Platelet Vol. 11.2 fl (6.2-12.0); Monocyte# 0.33 X10^3/uL; Monocyte% 4.9 % (0-10); NRBC Flagged by Analyzer 0 % (0-5); Neutrophil # 6.07 X10^3/uL (2.7-7.7); Neutrophil % 90.3 % (47-70); POSITIVE COUNT YES; POSITIVE DIFFERENTIAL YES; POSITIVE MORPHOLOGY YES; Platelet Count 67 K/mm3 (150-450); RBC Distribution Width CV 19.2 % (11.6-14.6); RBC Distribution Width SD 68.2 fl (35.1-43.9); Red Blood Count 3.27 M/mm3 (4.2-5.4); White Blood Count 6.7 K/mm3 (4.4-11.0)
[2021-12-05] MEDS: proMETHazine 25 MG Tablet 12.5 MG PO (20:53)
[2021-12-05 20:57] LABS: Differential Indicated SCAN CRITERIA MET
[2021-12-05 21:15] LABS: Differential Comment SEE COMMENTS
[2021-12-05 21:16] LABS: Anisocytosis RARE; Macrocytosis RARE; Platelet Estimate MOD DEC (ADEQ); Red Cell Morphology N CHROM NORMAL (NORM C&C)
[2021-12-05 21:49] LABS: AST(SGOT) 30 U/L (15-37); Alanine Aminotransfer ALT/SGPT 36 U/L (13-56); Alkaline Phosphatase 91 U/L (45-117); Anion Gap 11 (5-15); BUN 69 mg/dL (7-18); BUN/Creat Ratio 7.8 RATIO (10-20); Bilirubin, Direct 0.27 mg/dL (0.00-0.30); Calcium,Total 8.8 mg/dL (8.5-10.1); Chloride 96 mmol/L (98-107); EST Glomerular Filtration Rate 5 mL/min (>60); Est Glom Filt Rate - Afr Amer 6 mL/min (>60); Estimated Creatinine Clearance 5.81 ml/min; Globulin 4.1 g/dL (2.2-4.2); Glucose 284 mg/dL (74-106); Lipase 95 U/L (73-393); Potassium 6.5 mmol/L (3.5-5.1); Protein, Total 7.1 g/dL (6.4-8.2); Sodium Level 130 mmol/L (136-145)
--- NOTE | 2021-12-05 22:00 | EKG12_ITS ---
Test Reason : REPEAT EKG Blood Pressure : / mmHG Vent. Rate : 085 BPM Atrial Rate : 085 BPM P-R Int : 206 ms QRS Dur : 128 ms QT Int : 422 ms P-R-T Axes : 037 -54 035 degrees QTc Int : 502 ms Sinus rhythm with Premature atrial complexes Left axis deviation Left bundle branch block Abnormal ECG Confirmed by CHRISTAL FOFANA, ARMANDO ([id number]), film editor supervisor STEPHANIE PHAM ([id number]) on 12/07/2021 8:01:34 AM Referred By: EUN Confirmed By:ARMANDO SIEGEL MD
[2021-12-05 22:03] VITALS: PULSE 86; RESP 22; O2SAT 97
[2021-12-05] MEDS: Dextrose 50%-Water 25 GM/50 ML DISP.SYRIN IV (22:40)
[2021-12-05] MEDS: Insulin Lispro 10 UNIT in Syringe 0 ML 6 UNIT IV (22:41)
--- NOTE | 2021-12-05 22:43 | HP.PCM.HOS_ITS ---
[facility] - General General Date of Admission: 12/05/21 Date of Service: 12/05/21 Chief Complaint: Malaise HPI Narrative CHRISTINA KUO, is a 66 F with a significant history of ?uterine and cervical cancer status post radical hysterectomy; rectal cancer x3 status post polypectomy; hypertension; diarrhea on Lomotil; depression; psoriasis; end-stage renal disease on dialysis; diabetes mellitus; HOFFMAN cirrhosis status post liver transplantation who presents to the emergency department with malaise that started 4 days before presentation. Associated with her symptoms is nausea. At baseline she has diarrhea with dialysis but her daily diarrhea has worsened. On day of presentation she had about 4 loose stools. At baseline she has dialysis Saturday; Saturday and Fridays. However because of malaise she could not go to her last dialysis. Also she reports intermittent low-grade fever with highest temperature of 100 Fahrenheit. She reports chills. She reports some shortness of breath. [facility] Medical History Anemia Anemia in chronic kidney disease Back pain Blister Cancer Cardiology follow-up encounter Celiac disease Chronic kidney disease, stage 3 Chronic kidney failure Chronic renal failure, stage 5 Cirrhosis COPD (chronic obstructive pulmonary disease) Diabetes Dialysis patient DVT (deep venous thrombosis) ESRD (end stage renal disease) Gastric reflux GERD (gastroesophageal reflux disease) History of echocardiogram (~01/22/20) History of edema History of irregular heartbeat History of renal disease History of stress test (~12/07/19) History of uterine cancer Hx of Krueger's palsy Hypertension Infection involving suture with abscess Insulin dependent diabetes mellitus [employer] Non-smoker Osteoporosis Pancytopenia Sleep apnea Wears dentures Wears glasses Home Medications ascorbic acid (vitamin C) 500 mg chewable tablet 1,000 mg PO DAILY supplement 02/20/15 [History Last Taken 09/09/19] cholecalciferol (vitamin D3) 25 mcg (1,000 unit) tablet 1,000 unit PO BID supplement 02/20/15 [History Last Taken 09/09/19] atorvastatin 10 mg tablet 10 mg PO QHS cholestrol 10/19/16 [History Last Taken 09/09/19] insulin aspart U-100 100 unit/mL (3 mL) subcutaneous pen (Novolog Flexpen U-100 Insulin aspart) 22 units subcut 0800,1700 blood sugar 05/29/18 [History Last Taken 09/09/19] insulin glargine 100 unit/mL (3 mL) subcutaneous pen (Lantus Solostar U-100 Insulin) 50 unit SQ BID blood sugar 05/29/18 [History Last Taken 09/09/19] tacrolimus 1 mg capsule, immediate-release (Prograf) 0.5 mg PO BID REJECTION 09/10/19 [History Last Taken 04/27/21] trazodone 150 mg tablet 200 mg PO QHS SLEEP 09/10/19 [History Last Taken 09/09/19] vitamin B complex 1 tablet PO DAILY SUPPLEMENT 09/10/19 [History Last Taken 09/09/19] carvedilol 25 mg tablet 12.5 mg PO BID heart 02/25/20 [History Last Taken 08/03/20] hydroxyzine HCl 25 mg tablet 25 mg PO BID PRN Itching 05/23/20 [History Last Taken Unknown] levothyroxine 25 mcg tablet 88 mcg PO DAILY thyroid 05/23/20 [History Last Taken 04/28/21] ropinirole 1 mg tablet 1 mg PO .QAM 05/23/20 [History Last Taken 06/16/20] torsemide 20 mg tablet 60 mg PO DAILY FLUID 05/23/20 [History Last Taken Unknown] ropinirole 2 mg tablet,extended release 24 hr 2 mg PO QHS 06/10/20 [History Last Taken Unknown] sevelamer carbonate 800 mg tablet (Renvela) 800 mg PO TID 06/10/20 [History Last Taken Unknown] clopidogrel 75 mg tablet (Plavix) 75 mg PO DAILY 04/28/21 [History Last Taken Unknown] nitroglycerin 0.4 mg sublingual tablet 0.4 mg sublingual Q5M PRN Cardiac/Chest Pain #30 tabs 04/29/21 [Rx Last Taken Unknown] pantoprazole 40 mg tablet,delayed release 40 mg PO BID #60 tabs 04/29/21 [Rx Last Taken Unknown] biotin 1 mg capsule 1 mg PO DAILY 08/11/21 [History Last Taken Unknown] melatonin 3 mg tablet 10 mg PO QHS 08/11/21 [History Last Taken Unknown] sertraline 50 mg tablet (Zoloft) 50 mg PO DAILY mood 08/11/21 [History Last Taken Unknown] insulin aspart U-100 100 unit/mL (3 mL) subcutaneous pen 26 unit subcut 1200 diabetes 10/22/21 [History Last Taken Unknown] albuterol sulfate 90 mcg/actuation aerosol inhaler 2 puff IH Q4H PRN PRN Sob &/Or Wheezing 30 days #8.6 grams 10/25/21 [Rx Last Taken Unknown] dicyclomine 20 mg tablet 20 mg PO TID PRN abdominal discomfort #20 tabs 10/25/21 [Rx Last Taken Unknown] hydrocortisone 100 mg/60 mL enema 300 mg (180 mL) [place] QHS 21 days #3,780 mL 10/25/21 [Rx Last Taken Unknown] polyethylene glycol 3350 17 gram/dose oral powder (Miralax) 17 g PO DAILY #510 grams 10/25/21 [Rx Last Taken Unknown] diphenoxylate-atropine 2.5 mg-0.025 mg tablet (Lomotil) 1 tab PO TID PRN diarrhea #90 tabs 10/27/21 [Rx Last Taken Unknown] Allergy/AdvReac Type Severity Reaction Status Date / Time amlodipine [From Norvasc] Allergy Severe Hives Verified 12/05/21 19:54 ampicillin sodium Allergy Severe Hives Verified 12/05/21 19:54 [From Unasyn] buspirone HCl [From BuSpar] Allergy Severe Hives Verified 12/05/21 19:54 cefadroxil [From Duricef] Allergy Severe Hives Verified 12/05/21 19:54 lisinopril Allergy Severe Swelling Verified 12/05/21 19:54 naproxen Allergy Severe Hives Verified 12/05/21 19:54 niacin Allergy Severe Hives Verified 12/05/21 19:54 [From Niaspan Extended-Release] sulbactam sodium Allergy Severe Hives Verified 12/05/21 19:54 [From Unasyn] Sulfa (Sulfonamide Allergy Severe Hives Verified 12/05/21 19:54 Antibiotics) cephalexin [From Keflex] Allergy Hives Verified 12/05/21 19:54 omeprazole AdvReac Severe Other Verified 08/14/21 15:41 losartan AdvReac Swelling Verified 08/14/21 15:41 Family History Mother Diabetes Anemia Father Hypertension LUNG/RESPIRATORY DISEASE Surgical History History of appendectomy History of cholecystectomy History of coronary artery stent placement History of left knee surgery History of left salpingo-oophorectomy History of liver transplant History of radical hysterectomy History of ventral hernia repair S/P arteriovenous (AV) fistula creation (~06/16/20) Social History Smoking Status: Never smoker substance use type: does not use ROS ROS Narrative Pertinent positives and pertinent negatives as noted in HPI. All other systems were reviewed and are negative Vital Signs Vital Signs Vital Signs: 12/05/21 19:50 12/05/21 20:09 12/05/21 22:03 Temperature 98.9 F Temperature Source Temporal Pulse Rate 100 86 Respiratory Rate 18 22 H Respiratory Effort Normal Respiratory Depth Normal Respiratory Pattern Normal Blood Pressure 146/56 H Blood Pressure Mean 86 Pulse Ox 96 97 Oxygen Delivery Method Room Air Room Air Room Air Weight Weight: 113.398 kg Body Mass Index (BMI) 41.5 Physical Exam Narrative Physical exam: General: Well-nourished, well-developed. Head: Normocephalic, atraumatic, no tenderness Eyes: Vision is grossly intact. EOMI ENT, no trauma, moist mucous membranes, no rhinorrhea Neck: Nontender, full range of motion. CVS: Regular rate and rhythm. S1-S2 present. No murmur, gallop or rub. Respiratory : clear to auscultation bilaterally, chest wall nontender, no wheezing Abdomen: Soft, nontender, nondistended, normal bowel sounds, no masses : Deferred Back: Nontender, no CVA tenderness. Extremities: Nontender full range of motion, no trauma. Bilateral feet edema, 2+. Skin: Normal color, no trauma, abrasions Neuro: Alert, oriented, cranial nerves II through XII grossly intact. Psychiatry: Normal mood. Normal affect. Not depressed. Not anxious. Results Lab / Micro Data Result Diagrams: 12/05/21 20:41 12/05/21 20:41 Labs: Laboratory Results - last 24 hr 12/05/21 20:41: WBC 6.7, RBC 3.27 L, Hgb 9.8 L, Hct 31.5 L, MCV 96.3, MCH 30.0, MCHC 31.1 L, RDW Std Deviation 68.2 H, RDW Coeff of Tami 19.2 H, Plt Count 67 L, MPV 11.2, Immature Gran % (Auto) 0.900, Neut % (Auto) 90.3 H, Lymph % (Auto) 3.7 L, [place] % (Auto) 4.9, Eos % (Auto) 0.1, Baso % (Auto) 0.1, Absolute Neuts (auto) 6.1, Absolute Lymphs (auto) 0.25 L, Nucleated RBC % 0, Differential Comment SEE COMMENTS, Platelet Estimate MOD DEC, RBC Morphology N CHROM, Anisocytosis RARE, Macrocytosis RARE 12/05/21 20:41: Sodium 130 L, Potassium 6.5 H*, Chloride 96 L, Carbon Dioxide 23.0, Anion Gap 11, BUN 69 H, Creatinine 8.80 H*, Estim Creat Clear Calc 5.81, Est GFR (MDRD) Af Amer 6 L, Est GFR (MDRD) Non-Af 5 L, BUN/Creatinine Ratio 7.8 L, Glucose 284 H, Calcium 8.8, Total Bilirubin 0.80, Direct Bilirubin 0.27, AST 30, ALT 36, Alkaline Phosphatase 91, Total Protein 7.1, Albumin 3.0 L, Globulin 4.1, Lipase 95 Micro: Microbiology 12/05/21 20:43 Nasal Secretion SARS-CoV-2 Antigen (Rapid) - Final Radiology Impression Chest X-Ray 12/05/21 20:49 IMPRESSION: No acute radiographic abnormalities. Electronically Signed: Kiko Holloway MD at 22:13 EDT , Assessment & Plan Assessment/Plan (1) Hyperkalemia: (2) Dyspnea: (3) Type 2 diabetes mellitus: (4) Morbid obesity due to excess calories: PLAN: Plan Hyperkalemia/end-stage renal disease on dialysis (Wednesdays) Likely secondary to missing dialysis. On presentation his potassium was 6.5. Albuterol 10 mg by inhalation; and insulin with glucose ordered. EKG review showed PACs with a prolonged QTC of 494 and 502 Will give Kayexalate. Of note patient report that the last time bowels moved was about 5 hours prior to hospital seen patient on presentation. MiraLAX ordered. Emergency department doctor discussed the case with nephrology. Per discussion with Emergency Department doctor and nephrology patient will have dialysis in a.m.. Of note patient is on home torsemide. 80 mg Lasix IV ordered. Then resume home torsemide in a.m. repeat BMP in a.m. Renal diet ordered. BMP in AM. Nephrology consult. Dyspnea Chest x-ray was visualized and independently interpreted. I agree with the read interpretation no acute cardiopulmonary process. Rapid COVID antigen was negative. Patient on room air. Clinical monitoring. QTC prolongation QTC of 494 and 502. Avoid QTC prolongation drugs. No Zofran. Compazine for n ausea ordered. Diabetes mellitus Patient with hyperglycemia on presentation Basal insulin adjusted Monitor Accu-Cheks Correction scale insulin ordered. Hypertension Blood pressure is not within goal Carvedilol and Lasix continued continued. Trend blood pressure and adjust blood pressure medications. Morbid obesity obesity due to excess calories: BMI: 41.6 kg/m?. Complicates care. Lifestyle modification recommended. DVT prophylaxis: Subcu heparin ordered. Charges/Coding Visit Charges OBSV E&M: 23154 Initial observation care L3
[2021-12-05] MEDS: Albuterol *CONC* 2.5mg/0.5mL VIAL.NEB. 10 MG INHALATION (23:02)
[2021-12-05 23:08] VITALS: BP 132/60; PULSE 92; RESP 16; TEMP 37; O2SAT 96
[2021-12-05 23:28] VITALS: BMI 41.5
[2021-12-05 23:30] VITALS: BP 148/67; PULSE 87; PULSE 93; RESP 20; TEMP 36.6; O2SAT 97
[2021-12-05 23:56] VITALS: PULSE 87
[2021-12-06] VITALS (12 sets, daily range): BP systolic 111–147; BP diastolic 55–70; PULSE 60–104; RESP 15–18; TEMP 36.6–37.4; O2SAT 97–100
[2021-12-06] MEDS: Furosemide 100 MG/10 ML Vial 80 MG IV (00:04)
[2021-12-06] MEDS: Polyethylene Glycol 3350 17 GM PACKET 34 GM PO (00:06)
[2021-12-06 00:35] LABS: Bedside Glucose 222 mg/dL (74-106)
[2021-12-06] MEDS: Insulin Glargine-YFGN 100 UNIT/ML Pen 25 UNIT SC (00:35)
[2021-12-06] MEDS: Sodium Polystyrene Sulfonate 15 GM/60 ML UDC 30 GM PO (00:36)
[2021-12-06] MEDS: Dicyclomine 10 MG Capsule 20 MG PO (04:02)
[2021-12-06] MEDS: proCHLORPERazine 10 MG/2 ML Vial 5 MG IV (04:29)
[2021-12-06] MEDS: 0.9% Saline Lock 10 ML Syringe IV ×2 (04:30→21:38)
[2021-12-06] MEDS: Levothyroxine 88 MCG Tablet PO (05:31)
[2021-12-06 06:10] LABS: Absolute Lymphocyte Count 0.44 X10^3/uL (0.83-4.51); Absolute Neutrophil Count 6.1 X10^3/uL (2.0-7.7); Basophil# 0.01 X10^3/uL; Basophil% 0.1 % (0-1); Eosinophil# 0.01 X10^3/uL; Eosinophils% 0.1 % (0-5); Hematocrit 31.1 % (37-47); Hemoglobin 9.6 g/dL (12.0-15.0); Lymphocyte # 0.44 X10^3/ul (0.83-4.51); Lymphocyte % 6.4 % (19-41); Mean Corp Hgb Conc 30.9 g/dL (32-36); Mean Corpuscular Hgb 29.9 pg (27.0-32.0); Mean Corpuscular Volume 96.9 fL (81-99); Mean Platelet Vol. 11.4 fl (6.2-12.0); Monocyte# 0.33 X10^3/uL; Monocyte% 4.8 % (0-10); NRBC Flagged by Analyzer 0 % (0-5); Neutrophil # 6.07 X10^3/uL (2.7-7.7); Neutrophil % 87.7 % (47-70); POSITIVE COUNT YES; POSITIVE DIFFERENTIAL YES; POSITIVE MORPHOLOGY YES; Platelet Count 62 K/mm3 (150-450); RBC Distribution Width CV 19.1 % (11.6-14.6); RBC Distribution Width SD 67.9 fl (35.1-43.9); Red Blood Count 3.21 M/mm3 (4.2-5.4); White Blood Count 6.9 K/mm3 (4.4-11.0)
[2021-12-06 06:11] LABS: Differential Indicated SCAN CRITERIA MET
[2021-12-06 06:30] LABS: Anisocytosis 2+; Platelet Estimate MOD DEC (ADEQ)
[2021-12-06 07:15] LABS: Bedside Glucose 231 mg/dL (74-106)
--- NOTE | 2021-12-06 07:41 | PN.HOSP_ITS ---
Subjective Subjective Patient is a 66-year-old lady with history of end-stage renal disease on dialysis Wednesdays and Fridays who presented to the emergency department with shortness of breath as well as nausea. Chest x-ray obtained on admission did not show any acute radiographic abnormalities. Patient was found to have potassium of 6.5 Objective Data Objective Data Vital Signs: Vital Signs Temp Pulse Resp BP Pulse Ox O2 Del Method 98.8 F 94 18 147/70 H 100 Room Air 12/06/21 04:01 12/06/21 04:01 12/06/21 04:01 12/06/21 04:01 12/06/21 04:01 12/06/21 04:45 Oxygen Delivery Method Room Air Weight: 115.1 kg Body Mass Index (BMI) 41.5 Intake & Output: Intake and Output for Last 24 Hours 12/04/21 12/05/21 12/06/21 23:59 23:59 23:59 Intake Total 740 / 740 Balance 740 / 740 Lab / Micro Data Result Diagrams: 12/06/21 05:55 12/06/21 07:50 Labs: Laboratory Results - last 24 hr 12/05/21 20:41: WBC 6.7, RBC 3.27 L, Hgb 9.8 L, Hct 31.5 L, MCV 96.3, MCH 30.0, MCHC 31.1 L, RDW Std Deviation 68.2 H, RDW Coeff of Tami 19.2 H, Plt Count 67 L, MPV 11.2, Immature Gran % (Auto) 0.900, Neut % (Auto) 90.3 H, Lymph % (Auto) 3.7 L, [place] % (Auto) 4.9, Eos % (Auto) 0.1, Baso % (Auto) 0.1, Absolute Neuts (auto) 6.1, Absolute Lymphs (auto) 0.25 L, Nucleated RBC % 0, Differential Comment SEE COMMENTS, Platelet Estimate MOD DEC, RBC Morphology N CHROM, Anisocytosis RARE, Macrocytosis RARE 12/05/21 20:41: Sodium 130 L, Potassium 6.5 H*, Chloride 96 L, Carbon Dioxide 23.0, Anion Gap 11, BUN 69 H, Creatinine 8.80 H*, Estim Creat Clear Calc 5.81, Est GFR (MDRD) Af Amer 6 L, Est GFR (MDRD) Non-Af 5 L, BUN/Creatinine Ratio 7.8 L, Glucose 284 H, Calcium 8.8, Total Bilirubin 0.80, Direct Bilirubin 0.27, AST 30, ALT 36, Alkaline Phosphatase 91, Total Protein 7.1, Albumin 3.0 L, Globulin 4.1, Lipase 95 12/05/21 23:45: POC Glucose 222 H 12/06/21 05:55: WBC 6.9, RBC 3.21 L, Hgb 9.6 L, Hct 31.1 L, MCV 96.9, MCH 29.9, MCHC 30.9 L, RDW Std Deviation 67.9 H, RDW Coeff of Tami 19.1 H, Plt Count 62 L, MPV 11.4, Immature Gran % (Auto) 0.900, Neut % (Auto) 87.7 H, Lymph % (Auto) 6.4 L, [place] % (Auto) 4.8, Eos % (Auto) 0.1, Baso % (Auto) 0.1, Absolute Neuts (auto) 6.1, Absolute Lymphs (auto) 0.44 L, Nucleated RBC % 0, Platelet Estimate MOD DEC, Anisocytosis 2+ 12/06/21 05:55: Sodium Cancelled, Potassium Cancelled, Chloride Cancelled, Carbon Dioxide Cancelled, Anion Gap Cancelled, BUN Cancelled, Creatinine Cancelled, Estim Creat Clear Calc Cancelled, Est GFR (MDRD) Af Amer Cancelled, Est GFR (MDRD) Non-Af Cancelled, BUN/Creatinine Ratio Cancelled, Glucose Cancelled, Calcium Cancelled 12/06/21 06:51: POC Glucose 231 H Micro: Microbiology 12/05/21 20:43 Nasal Secretion SARS-CoV-2 Antigen (Rapid) - Final Radiography Diagnostic Testing: Radiology Impression Chest X-Ray 12/05/21 20:49 IMPRESSION: No acute radiographic abnormalities. Electronically Signed: Kiko Holloway MD at 22:13 EDT , Physical Exam Narrative GENERAL: cooperative HEENT: Atraumatic; normocephalic EYES; Anicteric, Normal Conjunctiva NECK; supple, normal thyroid, RESPIRATORY: Diminished to auscultation CARDIOVASCULAR: Regular S1 S2, GI: soft, normoactive bowel sounds, : No Renal angle tenderness; EXTREMITIES: No edema, no clubbing, MUSCULOSKELETAL: no muscle wasting NEURO: Awake; no lateralizing signs. SKIN: No Rash PSYCH; Flat affect Assessment & Plan Assessment/Plan (1) Hyperkalemia: (2) Dyspnea: (3) Type 2 diabetes mellitus: (4) Morbid obesity due to excess calories: PLAN: Plan Patient is a 66-year-old lady with history of end-stage renal disease on dialysis Wednesdays and Fridays who presented to the emergency department with shortness of breath as well as nausea. Chest x-ray obtained on admission did not show any acute radiographic abnormalities. Patient was found to have potassium of 6.5 1. Hyperkalemia ? Secondary to patient end-stage renal disease potassium on admission was 6.5. He did receive Kayexalate albuterol as well as insulin with glucose repeat potassium ordered for monitoring admitted to a monitored bed subsequently. Plan is for patient to undergo dialysis 2. End-stage renal disease ? On dialysis on Wednesdays and Fridays consult placed to nephrology for dialysis orders 3. Acute dyspnea ? Secondary to fluid overload possibly as a result of end-stage renal disease plan is to manage with dialysis. Placed on supplemental oxygen titrated to keep saturation greater than 90 4. Diabetes mellitus type 2 ? Did continue patient home regimen consisting of long-acting insulin and scheduled short acting insulin. Was also placed on correction factor sliding scale coverage 5. Hypothyroidism - Patient is on levothyroxine home dose continued 6. Class III obesity with BMI of 41.6 ? Weight loss advised 7 DVT prophylaxis ? SC heparin Charges/Coding Visit Charges Inpatient E&M: 09199 Subs Hosp L3
[2021-12-06 08:27] LABS: Anion Gap 13 (5-15); BUN 73 mg/dL (7-18); BUN/Creat Ratio 7.8 RATIO (10-20); Calcium,Total 8.7 mg/dL (8.5-10.1); Chloride 95 mmol/L (98-107); Creatinine, Serum 9.32 mg/dL (0.55-1.02); EST Glomerular Filtration Rate 5 mL/min (>60); Est Glom Filt Rate - Afr Amer 6 mL/min (>60); Estimated Creatinine Clearance 5.49 ml/min; Glucose 224 mg/dL (74-106); Potassium 5.6 mmol/L (3.5-5.1); Sodium Level 131 mmol/L (136-145)
[2021-12-06] MEDS: Ascorbic Acid 500 MG Tablet 1000 MG PO (08:29)
[2021-12-06] MEDS: Cholecalciferol (VIT D3) 25 MCG TABLET (1,000 UNITS) PO ×2 (08:30→21:36)
[2021-12-06] MEDS: Sertraline 50 MG Tablet PO (08:30)
[2021-12-06] MEDS: Vitamin B Comp W-C Capsule 1 CAP PO (08:31)
[2021-12-06] MEDS: SEVELAMER CARBONATE 800 MG TABLET PO ×3 (08:31→16:19)
[2021-12-06] MEDS: Pantoprazole Sodium 40 MG Tablet PO ×2 (08:31→21:33)
--- NOTE | 2021-12-06 08:31 | PCM.CONS.R ---
Assessment & Plan Assessment/Plan (1) Hyperkalemia: (2) ESRD (end stage renal disease): (3) Chronic anemia: (4) Diarrhea: PLAN: Plan Patient presented to the emergency room late last evening with complaints of malaise, nausea and diarrhea. Patient has a history of chronic diarrhea. Her potassium was noted to be 6.5 in the emergency room. She received albuterol by inhalation, insulin, D50 and Kayexalate. Repeat potassium has improved to 5.6 this morning. Patient did miss dialysis on Saturday and was unable to reschedule for Saturday. We will plan for dialysis today on 2K bath over 4 hours and attempt fluid removal as patient/blood pressure tolerates. Chest x-ray was reviewed and did not show any acute process. Patient is mildly hypervolemic from missing her dialysis session on Saturday. She likely will tolerate 3 to 4 L of fluid removed with dialysis today. Blood pressures acceptable. Please hold antihypertensives morning of dialysis. Hemoglobin is 9.6, patient receives Mircera at dialysis. Further orders forthcoming as hospitalization evolves. Thank you for allowing us participate in the care of Ms. Kuo. 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 Lab work in the emergency room showed hemoglobin of 9.8, white count of 6.7 and potassium of 6.5. Chest x-ray did not show any acute abnormalities. Patient was admitted for further evaluation and treatment. This morning patient reports diarrhea has improved. She reports that she was experiencing nausea with diarrhea on Saturday therefore she missed dialysis Saturday. She reports she was not able to reschedule for Saturday dialysis due to still not feeling well. She denies any fevers or abdominal pain. She denies noting melena or hematochezia. [facility] Medical History Anemia Anemia in chronic kidney disease Back pain Blister Cancer Cardiology follow-up encounter Celiac disease Chronic kidney disease, stage 3 Chronic kidney failure Chronic renal failure, stage 5 Cirrhosis COPD (chronic obstructive pulmonary disease) Diabetes Dialysis patient DVT (deep venous thrombosis) ESRD (end stage renal disease) Gastric reflux GERD (gastroesophageal reflux disease) History of echocardiogram (~01/22/20) History of edema History of irregular heartbeat History of renal disease History of stress test (~12/07/19) History of uterine cancer Hx of Krueger's palsy Hypertension Infection involving suture with abscess Insulin dependent diabetes mellitus [employer] Non-smoker Osteoporosis Pancytopenia Sleep apnea Wears dentures Wears glasses Home Medications ascorbic acid (vitamin C) 500 mg chewable tablet 1,000 mg PO DAILY supplement 02/20/15 [History Last Taken 09/09/19] cholecalciferol (vitamin D3) 25 mcg (1,000 unit) tablet 1,000 unit PO BID supplement 02/20/15 [History Last Taken 09/09/19] atorvastatin 10 mg tablet 10 mg PO QHS cholestrol 10/19/16 [History Last Taken 09/09/19] insulin aspart U-100 100 unit/mL (3 mL) subcutaneous pen (Novolog Flexpen U-100 Insulin aspart) 22 units subcut 0800,1700 blood sugar 05/29/18 [History Last Taken 09/09/19] insulin glargine 100 unit/mL (3 mL) subcutaneous pen (Lantus Solostar U-100 Insulin) 50 unit SQ BID blood sugar 05/29/18 [History Last Taken 09/09/19] tacrolimus 1 mg capsule, immediate-release (Prograf) 0.5 mg PO BID REJECTION 09/10/19 [History Last Taken 04/27/21] trazodone 150 mg tablet 200 mg PO QHS SLEEP 09/10/19 [History Last Taken 09/09/19] vitamin B complex 1 tablet PO DAILY SUPPLEMENT 09/10/19 [History Last Taken 09/09/19] carvedilol 25 mg tablet 12.5 mg PO BID heart 02/25/20 [History Last Taken 08/03/20] hydroxyzine HCl 25 mg tablet 25 mg PO BID PRN Itching 05/23/20 [History Last Taken Unknown] levothyroxine 25 mcg tablet 88 mcg PO DAILY thyroid 05/23/20 [History Last Taken 04/28/21] ropinirole 1 mg tablet 1 mg PO .QAM 05/23/20 [History Last Taken 06/16/20] torsemide 20 mg tablet 60 mg PO DAILY FLUID 05/23/20 [History Last Taken Unknown] ropinirole 2 mg tablet,extended release 24 hr 2 mg PO QHS 06/10/20 [History Last Taken Unknown] sevelamer carbonate 800 mg tablet (Renvela) 800 mg PO TID 06/10/20 [History Last Taken Unknown] clopidogrel 75 mg tablet (Plavix) 75 mg PO DAILY 04/28/21 [History Last Taken Unknown] nitroglycerin 0.4 mg sublingual tablet 0.4 mg sublingual Q5M PRN Cardiac/Chest Pain #30 tabs 04/29/21 [Rx Last Taken Unknown] pantoprazole 40 mg tablet,delayed release 40 mg PO BID #60 tabs 04/29/21 [Rx Last Taken Unknown] biotin 1 mg capsule 1 mg PO DAILY 08/11/21 [History Last Taken Unknown] melatonin 3 mg tablet 10 mg PO QHS 08/11/21 [History Last Taken Unknown] sertraline 50 mg tablet (Zoloft) 50 mg PO DAILY mood 08/11/21 [History Last Taken Unknown] insulin aspart U-100 100 unit/mL (3 mL) subcutaneous pen 26 unit subcut 1200 diabetes 10/22/21 [History Last Taken Unknown] albuterol sulfate 90 mcg/actuation aerosol inhaler 2 puff IH Q4H PRN PRN Sob &/Or Wheezing 30 days #8.6 grams 10/25/21 [Rx Last Taken Unknown] dicyclomine 20 mg tablet 20 mg PO TID PRN abdominal discomfort #20 tabs 10/25/21 [Rx Last Taken Unknown] hydrocortisone 100 mg/60 mL enema 300 mg (180 mL) IA QHS 21 days #3,780 mL 10/25/21 [Rx Last Taken Unknown] polyethylene glycol 3350 17 gram/dose oral powder (Miralax) 17 g PO DAILY #510 grams 10/25/21 [Rx Last Taken Unknown] diphenoxylate-atropine 2.5 mg-0.025 mg tablet (Lomotil) 1 tab PO TID PRN diarrhea #90 tabs 10/27/21 [Rx Last Taken Unknown] Allergy/AdvReac Type Severity Reaction Status Date / Time amlodipine [From Norvasc] Allergy Severe Hives Verified 12/05/21 19:54 ampicillin sodium Allergy Severe Hives Verified 12/05/21 19:54 [From Unasyn] buspirone HCl [From BuSpar] Allergy Severe Hives Verified 12/05/21 19:54 cefadroxil [From Duricef] Allergy Severe Hives Verified 12/05/21 19:54 lisinopril Allergy Severe Swelling Verified 12/05/21 19:54 naproxen Allergy Severe Hives Verified 12/05/21 19:54 niacin Allergy Severe Hives Verified 12/05/21 19:54 [From Niaspan Extended-Release] sulbactam sodium Allergy Severe Hives Verified 12/05/21 19:54 [From Unasyn] Sulfa (Sulfonamide Allergy Severe Hives Verified 12/05/21 19:54 Antibiotics) cephalexin [From Keflex] Allergy Hives Verified 12/05/21 19:54 omeprazole AdvReac Severe Other Verified 08/14/21 15:41 losartan AdvReac Swelling Verified 08/14/21 15:41 Family History Mother Diabetes Anemia Father Hypertension LUNG/RESPIRATORY DISEASE Surgical History History of appendectomy History of cholecystectomy History of coronary artery stent placement History of left knee surgery History of left salpingo-oophorectomy History of liver transplant History of radical hysterectomy History of ventral hernia repair S/P arteriovenous (AV) fistula creation (~06/16/20) Social History housing: apartment current occupational status: disabled Smoking Status: Never smoker substance use type: does not use ROS ROS Narrative As per HPI and past medical history Physical Exam Narrative Alert oriented x3, no apparent distress Cardio: RRR, S1-S2 Respiratory: Lung sounds clear anteriorly no wheezes, rhonchi or rales noted. Diminished breath sounds posterior bases Abdomen: Soft, nontender, positive bowel sounds x4 quadrants Extremities: 2+ pitting edema noted bilateral lower legs and feet AV fistula positive thrill and bruit Lab / Micro Data Result Diagrams: 12/06/21 05:55 12/06/21 07:50 Labs: Laboratory Results - last 24 hr 12/05/21 20:41: WBC 6.7, RBC 3.27 L, Hgb 9.8 L, Hct 31.5 L, MCV 96.3, MCH 30.0, MCHC 31.1 L, RDW Std Deviation 68.2 H, RDW Coeff of Tami 19.2 H, Plt Count 67 L, MPV 11.2, Immature Gran % (Auto) 0.900, Neut % (Auto) 90.3 H, Lymph % (Auto) 3.7 L, [place] % (Auto) 4.9, Eos % (Auto) 0.1, Baso % (Auto) 0.1, Absolute Neuts (auto) 6.1, Absolute Lymphs (auto) 0.25 L, Nucleated RBC % 0, Differential Comment SEE COMMENTS, Platelet Estimate MOD DEC, RBC Morphology N CHROM, Anisocytosis RARE, Macrocytosis RARE 12/05/21 20:41: Sodium 130 L, Potassium 6.5 H*, Chloride 96 L, Carbon Dioxide 23.0, Anion Gap 11, BUN 69 H, Creatinine 8.80 H*, Estim Creat Clear Calc 5.81, Est GFR (MDRD) Af Amer 6 L, Est GFR (MDRD) Non-Af 5 L, BUN/Creatinine Ratio 7.8 L, Glucose 284 H, Calcium 8.8, Total Bilirubin 0.80, Direct Bilirubin 0.27, AST 30, ALT 36, Alkaline Phosphatase 91, Total Protein 7.1, Albumin 3.0 L, Globulin 4.1, Lipase 95 12/05/21 23:45: POC Glucose 222 H 12/06/21 05:55: WBC 6.9, RBC 3.21 L, Hgb 9.6 L, Hct 31.1 L, MCV 96.9, MCH 29.9, MCHC 30.9 L, RDW Std Deviation 67.9 H, RDW Coeff of Tami 19.1 H, Plt Count 62 L, MPV 11.4, Immature Gran % (Auto) 0.900, Neut % (Auto) 87.7 H, Lymph % (Auto) 6.4 L, [place] % (Auto) 4.8, Eos % (Auto) 0.1, Baso % (Auto) 0.1, Absolute Neuts (auto) 6.1, Absolute Lymphs (auto) 0.44 L, Nucleated RBC % 0, Platelet Estimate MOD DEC, Anisocytosis 2+ 12/06/21 05:55: Sodium Cancelled, Potassium Cancelled, Chloride Cancelled, Carbon Dioxide Cancelled, Anion Gap Cancelled, BUN Cancelled, Creatinine Cancelled, Estim Creat Clear Calc Cancelled, Est GFR (MDRD) Af Amer Cancelled, Est GFR (MDRD) Non-Af Cancelled, BUN/Creatinine Ratio Cancelled, Glucose Cancelled, Calcium Cancelled 12/06/21 06:51: POC Glucose 231 H 12/06/21 07:50: Sodium 131 L, Potassium 5.6 H, Chloride 95 L, Carbon Dioxide 23.0, Anion Gap 13, BUN 73 H, Creatinine 9.32 H*, Estim Creat Clear Calc 5.49, Est GFR (MDRD) Af Amer 6 L, Est GFR (MDRD) Non-Af 5 L, BUN/Creatinine Ratio 7.8 L, Glucose 224 H, Calcium 8.7 Micro: Microbiology 12/05/21 20:43 Nasal Secretion SARS-CoV-2 Antigen (Rapid) - Final Radiology Impression Chest X-Ray 12/05/21 20:49 IMPRESSION: No acute radiographic abnormalities. Electronically Signed: Kiko Holloway MD at 22:13 EDT ,
[2021-12-06] MEDS: Furosemide 40 MG Tablet 120 MG PO (08:32)
[2021-12-06] MEDS: Clopidogrel Bisulfate 75 MG Tablet PO (08:32)
[2021-12-06] MEDS: Pramipexole Di-HCl 0.5 MG Tablet PO (08:32)
[2021-12-06] MEDS: Tacrolimus 0.5 MG Capsule PO ×2 (08:33→21:33)
[2021-12-06] MEDS: Glucerna Shake 120 ML LIQUID PO (08:36)
[2021-12-06] MEDS: Carvedilol 12.5 MG Tablet PO ×2 (08:54→16:20)
--- NOTE | 2021-12-06 09:33 | PCM.DC.SUM ---
Providers Date of Admission: 12/05/21 Date of Discharge: 12/06/21 Primary Care Physician: Dr. Velia Archuleta MD Consultations 12/05/21 23:27 Consult: Nephrology Routine Consulting Provider: Selina Marlow Reason for Consult: Hyperkalemia; ESRD EMERGENT Consult: No MD Notified: Yes Date Notified: 12/05/21 Time Notified: 22:42 Method of Notification: ED Physician Initiated Reason For Visit: HYPERKALEMIA Diagnosis Discharge Diagnosis (1) Hyperkalemia: Status: Acute Code(s): E87.5 - Hyperkalemia (2) Dyspnea: Status: Acute Code(s): R06.00 - Dyspnea, unspecified (3) Type 2 diabetes mellitus: Status: Chronic Code(s): E11.9 - Type 2 diabetes mellitus without complications (4) Morbid obesity due to excess calories: Status: Acute Code(s): E66.01 - Morbid (severe) obesity due to excess calories Plan Patient is a 66-year-old lady with history of end-stage renal disease on dialysis Wednesdays and Fridays who presented to the emergency department with shortness of breath as well as nausea. Chest x-ray obtained on admission did not show any acute radiographic abnormalities. Patient was found to have potassium of 6.5 1. Hyperkalemia ? Secondary to patient end-stage renal disease potassium on admission was 6.5. He did receive Kayexalate albuterol as well as insulin with glucose repeat potassium ordered for monitoring admitted to a monitored bed subsequently. Plan is for patient to undergo dialysis ? Patient was discharged home following her dialysis 2. End-stage renal disease ? On dialysis on Wednesdays and Fridays consult placed to nephrology for dialysis orders 3. Acute dyspnea ? Secondary to fluid overload following patient having missed dialysis.. Placed on supplemental oxygen titrated to keep saturation greater than 90. Patient did receive dialysis during her hospital stay 4. Diabetes mellitus type 2 ? Did continue patient home regimen consisting of long-acting insulin and scheduled short acting insulin. Was also placed on correction factor sliding scale coverage 5. Hypothyroidism - Patient is on levothyroxine home dose continued 6. Class III obesity with BMI of 41.6 ? Weight loss advised 7 DVT prophylaxis ? SC heparin Medications at Discharge Home Medications ascorbic acid (vitamin C) 500 mg chewable tablet 1,000 mg PO DAILY supplement 02/20/15 cholecalciferol (vitamin D3) 25 mcg (1,000 unit) tablet 1,000 unit PO BID supplement 02/20/15 atorvastatin 10 mg tablet 10 mg PO QHS cholestrol 10/19/16 insulin aspart U-100 100 unit/mL (3 mL) subcutaneous pen (Novolog Flexpen U-100 Insulin aspart) 22 units subcut 0800,1700 blood sugar 05/29/18 insulin glargine 100 unit/mL (3 mL) subcutaneous pen (Lantus Solostar U-100 Insulin) 50 unit SQ BID blood sugar 05/29/18 tacrolimus 1 mg capsule, immediate-release (Prograf) 0.5 mg PO BID REJECTION 09/10/19 trazodone 150 mg tablet 200 mg PO QHS SLEEP 09/10/19 vitamin B complex 1 tablet PO DAILY SUPPLEMENT 09/10/19 carvedilol 25 mg tablet 12.5 mg PO BID heart 02/25/20 hydroxyzine HCl 25 mg tablet 25 mg PO BID PRN Itching 05/23/20 levothyroxine 25 mcg tablet 88 mcg PO DAILY thyroid 05/23/20 ropinirole 1 mg tablet 1 mg PO .QAM 05/23/20 torsemide 20 mg tablet 60 mg PO DAILY FLUID 05/23/20 ropinirole 2 mg tablet,extended release 24 hr 2 mg PO QHS 06/10/20 sevelamer carbonate 800 mg tablet (Renvela) 800 mg PO TID 06/10/20 clopidogrel 75 mg tablet (Plavix) 75 mg PO DAILY 04/28/21 nitroglycerin 0.4 mg sublingual tablet 0.4 mg sublingual Q5M PRN Cardiac/Chest Pain #30 tabs 04/29/21 pantoprazole 40 mg tablet,delayed release 40 mg PO BID #60 tabs 04/29/21 biotin 1 mg capsule 1 mg PO DAILY 08/11/21 melatonin 3 mg tablet 10 mg PO QHS 08/11/21 sertraline 50 mg tablet (Zoloft) 50 mg PO DAILY mood 08/11/21 insulin aspart U-100 100 unit/mL (3 mL) subcutaneous pen 26 unit subcut 1200 diabetes 10/22/21 albuterol sulfate 90 mcg/actuation aerosol inhaler 2 puff IH Q4H PRN PRN Sob &/Or Wheezing 30 days #8.6 grams 10/25/21 dicyclomine 20 mg tablet 20 mg PO TID PRN abdominal discomfort #20 tabs 10/25/21 hydrocortisone 100 mg/60 mL enema 300 mg (180 mL) SD QHS 21 days #3,780 mL 10/25/21 polyethylene glycol 3350 17 gram/dose oral powder (Miralax) 17 g PO DAILY #510 grams 10/25/21 diphenoxylate-atropine 2.5 mg-0.025 mg tablet (Lomotil) 1 tab PO TID PRN diarrhea #90 tabs 10/27/21 Hospital Course Summary of Care Provided Minutes Spent on Discharge: 35 Physical Exam Narrative GENERAL: cooperative HEENT: Atraumatic; normocephalic EYES; Anicteric, Normal Conjunctiva NECK; supple, normal thyroid, RESPIRATORY: Diminished to auscultation CARDIOVASCULAR: Regular S1 S2, GI: soft, normoactive bowel sounds, : No Renal angle tenderness; EXTREMITIES: No edema, no clubbing, MUSCULOSKELETAL: no muscle wasting NEURO: Awake; no lateralizing signs. SKIN: No Rash PSYCH; Flat affect Weight / BMI Weight Weight: 115.1 kg Body Mass Index (BMI) 41.5 ABG / Lab / Microbiology Data Result Diagrams: 12/06/21 05:55 12/06/21 07:50 Laboratory: Laboratory Results - last 24 hr 12/05/21 20:41: WBC 6.7, RBC 3.27 L, Hgb 9.8 L, Hct 31.5 L, MCV 96.3, MCH 30.0, MCHC 31.1 L, RDW Std Deviation 68.2 H, RDW Coeff of Tami 19.2 H, Plt Count 67 L, MPV 11.2, Immature Gran % (Auto) 0.900, Neut % (Auto) 90.3 H, Lymph % (Auto) 3.7 L, [place] % (Auto) 4.9, Eos % (Auto) 0.1, Baso % (Auto) 0.1, Absolute Neuts (auto) 6.1, Absolute Lymphs (auto) 0.25 L, Nucleated RBC % 0, Differential Comment SEE COMMENTS, Platelet Estimate MOD DEC, RBC Morphology N CHROM, Anisocytosis RARE, Macrocytosis RARE 12/05/21 20:41: Sodium 130 L, Potassium 6.5 H*, Chloride 96 L, Carbon Dioxide 23.0, Anion Gap 11, BUN 69 H, Creatinine 8.80 H*, Estim Creat Clear Calc 5.81, Est GFR (MDRD) Af Amer 6 L, Est GFR (MDRD) Non-Af 5 L, BUN/Creatinine Ratio 7.8 L, Glucose 284 H, Calcium 8.8, Total Bilirubin 0.80, Direct Bilirubin 0.27, AST 30, ALT 36, Alkaline Phosphatase 91, Total Protein 7.1, Albumin 3.0 L, Globulin 4.1, Lipase 95 12/05/21 23:45: POC Glucose 222 H 12/06/21 05:55: WBC 6.9, RBC 3.21 L, Hgb 9.6 L, Hct 31.1 L, MCV 96.9, MCH 29.9, MCHC 30.9 L, RDW Std Deviation 67.9 H, RDW Coeff of Tami 19.1 H, Plt Count 62 L, MPV 11.4, Immature Gran % (Auto) 0.900, Neut % (Auto) 87.7 H, Lymph % (Auto) 6.4 L, [place] % (Auto) 4.8, Eos % (Auto) 0.1, Baso % (Auto) 0.1, Absolute Neuts (auto) 6.1, Absolute Lymphs (auto) 0.44 L, Nucleated RBC % 0, Platelet Estimate MOD DEC, Anisocytosis 2+ 12/06/21 05:55: Sodium Cancelled, Potassium Cancelled, Chloride Cancelled, Carbon Dioxide Cancelled, Anion Gap Cancelled, BUN Cancelled, Creatinine Cancelled, Estim Creat Clear Calc Cancelled, Est GFR (MDRD) Af Amer Cancelled, Est GFR (MDRD) Non-Af Cancelled, BUN/Creatinine Ratio Cancelled, Glucose Cancelled, Calcium Cancelled 12/06/21 06:51: POC Glucose 231 H 12/06/21 07:50: Sodium 131 L, Potassium 5.6 H, Chloride 95 L, Carbon Dioxide 23.0, Anion Gap 13, BUN 73 H, Creatinine 9.32 H*, Estim Creat Clear Calc 5.49, Est GFR (MDRD) Af Amer 6 L, Est GFR (MDRD) Non-Af 5 L, BUN/Creatinine Ratio 7.8 L, Glucose 224 H, Calcium 8.7 Microbiology: Microbiology 12/05/21 20:43 Nasal Secretion SARS-CoV-2 Antigen (Rapid) - Final Radiography Diagnostic Testing: Radiology Impression Chest X-Ray 12/05/21 20:49 IMPRESSION: No acute radiographic abnormalities. Electronically Signed: Kiko Holloway MD at 22:13 EDT , Meaningful Use Info Meaningful Use Diagnoses (Choose all that apply): None applicable Discharge Plan Admission Admit Date/Time: 12/05/21 22:36 Attending Provider: Jag Taylor Primary Care Provider: Velia Archuleta Consulting Providers: Selina Marlow ; Dexter Garner Discharge Orders/Prescriptions Prescriptions: Continued hydroxyzine HCl 25 mg tablet 25 mg PO BID PRN (Reason: Itching) ascorbic acid (vitamin C) 500 MG tablet,chewable 1,000 mg PO DAILY Label Comments: supplement cholecalciferol (vitamin D3) 1,000 UNIT tablet 1,000 unit PO BID Label Comments: bone health levothyroxine 25 mcg tablet 88 mcg PO DAILY atorvastatin 10 MG tablet 10 mg PO QHS insulin aspart U-100 [Novolog Flexpen U-100 Insulin] 100 UNITS/ML insulin pen 22 units SC 0800,1700 insulin glargine [Lantus Solostar U-100 Insulin] 100 UNIT/ML insulin pen 50 unit SQ BID Hold Instructions: until follow up with pcp your blood sugars have been low while in hospital ropinirole 1 mg tablet 1 mg PO .QAM trazodone 150 MG tablet 200 mg PO QHS tacrolimus [Prograf] 1 MG capsule 0.5 mg PO BID vitamin B complex 1 EACH tablet 1 tablet PO DAILY torsemide 20 mg tablet 60 mg PO DAILY carvedilol 25 MG tablet 12.5 mg PO BID sevelamer carbonate [Renvela] 800 MG tablet 800 mg PO TID ropinirole 2 MG tablet extended release 24 hr 2 mg PO QHS clopidogrel [Plavix] 75 mg Tablet 75 mg PO DAILY Hold Instructions: Resume on 10/27/21. nitroglycerin 0.4 mg Tablet, Sublingual 0.4 mg sublingual Q5M PRN (Reason: Cardiac/Chest Pain) Qty: 30 0RF pantoprazole 40 MG tablet,delayed release (DR/EC) 40 mg PO BID Qty: 60 2RF Rx Instructions: 40 mg twice daily for 8 weeks, that is 2 months sertraline [Zoloft] 50 MG tablet 50 mg PO DAILY Label Comments: depression biotin 1 mg Capsule 1 mg PO DAILY melatonin 3 mg Tablet 10 mg PO QHS insulin aspart U-100 100 unit/mL (3 mL) Insulin Pen 26 unit SUBCUT 1200 hydrocortisone 100 mg/60 mL enema 300 mg SD QHS 21 Days Qty: 3780 0RF polyethylene glycol 3350 [Miralax] 17 gram/dose powder 17 g PO DAILY Qty: 510 0RF dicyclomine 20 mg tablet 20 mg PO TID PRN (Reason: abdominal discomfort) Qty: 20 0RF albuterol sulfate 1 PUFF inhaler 2 puff IH Q4H PRN PRN (Reason: Sob &/Or Wheezing) 30 Days Qty: 8.6 0RF diphenoxylate-atropine [Lomotil] 2.5-0.025 mg tablet 1 tab PO TID PRN (Reason: diarrhea) Qty: 90 2RF Referrals / Follow Up: Velia Archuleta MD [Primary Care Provider] - In 1 Week Disposition Disposition (needs filled in before D/C Order can be placed): Home, Self Care Charges/Coding Visit Charges OBSV E&M: 98498 Observation care discharge
--- NOTE | 2021-12-06 13:56 | PCM.PN.BLA ---
Progress Note Was found with a new rash on the right flank. This was tender and warm to touch. Decision to discharge patient home discontinued will monitor
--- NOTE | 2021-12-06 15:53 | DIALYSIS ---
Hemodialysis completed, Fluid removed was 1600 ml. Patient became very antsy towards end of tx and she insisted on coming off 35 min early. Ending BP was 128/58,93. Manual pressure held x 10 min, + bruit and thrill post needle removal, hemostasis achieved, no hematoma or bleeding.
[2021-12-06] MEDS: Insulin Lispro 100 UNIT/ML INSULN.PEN SC ×2 (16:21→21:36)
[2021-12-06] MEDS: Insulin Lispro 100 UNIT/ML INSULN.PEN 10 UNIT SC (16:21)
[2021-12-06 16:50] LABS: Bedside Glucose 157 mg/dL (74-106)
[2021-12-06] MEDS: Nystatin Powder 15gm Bottle 1 APPLIC TOPICAL (21:27)
[2021-12-06] MEDS: traZODone 100 MG Tablet 200 MG PO (21:33)
[2021-12-06] MEDS: MELATONIN 10 MG TABLET PO (21:33)
[2021-12-06] MEDS: Atorvastatin Calcium 10 MG Tablet PO (21:33)
[2021-12-06] MEDS: Pramipexole Di-HCl 1 MG Tablet PO (21:36)
[2021-12-06 22:05] LABS: Bedside Glucose 292 mg/dL (74-106)
[2021-12-07] VITALS (13 sets, daily range): BP systolic 133–157; BP diastolic 61–71; PULSE 73–92; RESP 14–20; TEMP 36.5–36.8; O2SAT 95–100
[2021-12-07] MEDS: Nystatin Powder 15gm Bottle 1 APPLIC TOPICAL ×3 (06:30→21:23)
[2021-12-07] MEDS: Levothyroxine 88 MCG Tablet PO (06:31)
[2021-12-07 06:34] LABS: Anion Gap 12 (5-15); BUN 55 mg/dL (7-18); Calcium,Total 8.2 mg/dL (8.5-10.1); Chloride 97 mmol/L (98-107); Creatinine, Serum 6.91 mg/dL (0.55-1.02); EST Glomerular Filtration Rate 6 mL/min (>60); Est Glom Filt Rate - Afr Amer 8 mL/min (>60); Glucose 202 mg/dL (74-106); Potassium 4.7 mmol/L (3.5-5.1); Sodium Level 134 mmol/L (136-145)
[2021-12-07 07:05] LABS: Bedside Glucose 194 mg/dL (74-106)
--- NOTE | 2021-12-07 07:58 | PCM.PN.HOSP ---
Subjective Subjective Plan was for patient to have been discharged home the day prior she was however found to have right flank rash erythematous and warm to touch. An assessment of cellulitis made. Patient started on antibiotics. Objective Data Objective Data Vital Signs: Vital Signs Temp Pulse Resp BP Pulse Ox O2 Del Method 98.1 F 84 20 H 157/71 H 96 Room Air 12/07/21 03:47 12/07/21 07:30 12/07/21 03:47 12/07/21 03:47 12/07/21 06:54 12/07/21 06:54 Oxygen Delivery Method Room Air Weight: 115.1 kg Body Mass Index (BMI) 41.5 Intake & Output: Intake and Output for Last 24 Hours 12/05/21 12/06/21 12/07/21 23:59 23:59 23:59 Intake Total 2295 / 2295 300 / 300 Output Total 1600 / 1600 Balance 695 / 695 300 / 300 Lab / Micro Data Result Diagrams: 12/06/21 05:55 12/07/21 05:35 Labs: Laboratory Results - last 24 hr 12/06/21 07:50: Sodium 131 L, Potassium 5.6 H, Chloride 95 L, Carbon Dioxide 23.0, Anion Gap 13, BUN 73 H, Creatinine 9.32 H*, Estim Creat Clear Calc 5.49, Est GFR (MDRD) Af Amer 6 L, Est GFR (MDRD) Non-Af 5 L, BUN/Creatinine Ratio 7.8 L, Glucose 224 H, Calcium 8.7 12/06/21 16:17: POC Glucose 157 H 12/06/21 21:21: POC Glucose 292 H 12/07/21 05:35: Sodium 134 L, Potassium 4.7, Chloride 97 L, Carbon Dioxide 25.0, Anion Gap 12, BUN 55 H, Creatinine 6.91 H, Estim Creat Clear Calc 7.40, Est GFR (MDRD) Af Amer 8 L, Est GFR (MDRD) Non-Af 6 L, BUN/Creatinine Ratio 8.0 L, Glucose 202 H, Calcium 8.2 L 12/07/21 06:29: POC Glucose 194 H Micro: Microbiology 12/05/21 20:43 Nasal Secretion SARS-CoV-2 Antigen (Rapid) - Final Physical Exam Narrative GENERAL: cooperative HEENT: Atraumatic; normocephalic EYES; Anicteric, Normal Conjunctiva NECK; supple, normal thyroid, RESPIRATORY: Diminished to auscultation CARDIOVASCULAR: Regular S1 S2, GI: soft, normoactive bowel sounds, : No Renal angle tenderness; EXTREMITIES: No edema, no clubbing, MUSCULOSKELETAL: no muscle wasting NEURO: Awake; no lateralizing signs. SKIN: An area of erythema and warmth with some induration on the right flank PSYCH; Flat affect Assessment & Plan Assessment/Plan (1) Hyperkalemia: (2) Dyspnea: (3) Type 2 diabetes mellitus: (4) Morbid obesity due to excess calories: PLAN: Plan Patient is a 66-year-old lady with history of end-stage renal disease on dialysis Wednesdays and Fridays who presented to the emergency department with shortness of breath as well as nausea. Chest x-ray obtained on admission did not show any acute radiographic abnormalities. Patient was found to have potassium of 6.5 1. Hyperkalemia ? Secondary to patient end-stage renal disease potassium on admission was 6.5. He did receive Kayexalate albuterol as well as insulin with glucose repeat potassium ordered for monitoring admitted to a monitored bed subsequently. Plan is for patient to undergo dialysis ? Patient was discharged home following her dialysis ? 12/07/2021 potassium down to 4.7 2. Right flank cellulitis Plan was for patient to have been discharged home the day prior she was however found to have right flank rash erythematous and warm to touch. An assessment of cellulitis made. Patient started on antibiotics?vancomycin. Patient has multiple allergies 3. End-stage renal disease ? On dialysis on Wednesdays and Fridays consult placed to nephrology for dialysis orders 4. Acute dyspnea ? Secondary to fluid overload following patient having missed dialysis.. Placed on supplemental oxygen titrated to keep saturation greater than 90. Patient did receive dialysis during her hospital stay 5. Diabetes mellitus type 2 ? Did continue patient home regimen consisting of long-acting insulin and scheduled short acting insulin. Was also placed on correction factor sliding scale coverage 6. Hypothyroidism - Patient is on levothyroxine home dose continued 7. Class III obesity with BMI of 41.6 ? Weight loss advised 8 DVT prophylaxis ? SC heparin Charges/Coding Visit Charges Inpatient E&M: 65627 Subs Hosp L3
[2021-12-07] MEDS: Sertraline 50 MG Tablet PO (08:20)
[2021-12-07] MEDS: Tacrolimus 0.5 MG Capsule PO ×2 (08:20→21:24)
[2021-12-07] MEDS: Pramipexole Di-HCl 0.5 MG Tablet PO (08:20)
[2021-12-07] MEDS: Furosemide 40 MG Tablet 120 MG PO (08:20)
[2021-12-07] MEDS: Clopidogrel Bisulfate 75 MG Tablet PO (08:20)
[2021-12-07] MEDS: Ascorbic Acid 500 MG Tablet 1000 MG PO (08:20)
[2021-12-07] MEDS: Vitamin B Comp W-C Capsule 1 CAP PO (08:20)
[2021-12-07] MEDS: Pantoprazole Sodium 40 MG Tablet PO ×2 (08:21→21:23)
[2021-12-07] MEDS: Cholecalciferol (VIT D3) 25 MCG TABLET (1,000 UNITS) PO ×2 (08:21→21:23)
[2021-12-07] MEDS: Carvedilol 12.5 MG Tablet PO ×2 (08:21→17:10)
[2021-12-07] MEDS: SEVELAMER CARBONATE 800 MG TABLET PO ×3 (08:21→17:10)
[2021-12-07] MEDS: Insulin Glargine-YFGN 100 UNIT/ML Pen 25 UNIT SC (08:22)
[2021-12-07] MEDS: Insulin Lispro 100 UNIT/ML INSULN.PEN SC (08:29)
[2021-12-07] MEDS: Insulin Lispro 100 UNIT/ML INSULN.PEN 10 UNIT SC ×2 (08:29→17:10)
--- NOTE | 2021-12-07 09:07 | PCM.RX.CS ---
Consult Pharmacy has been consulted to manage selected antiobiotic: Vancomycin Type of Consult: New start Suspected Infection: Skin/Soft tissue Labs: Sodium 134 mmol/L (136-145) L 12/07/21 05:35 Potassium 4.7 mmol/L (3.5-5.1) 12/07/21 05:35 Chloride 97 mmol/L (98-107) L 12/07/21 05:35 Carbon Dioxide 25.0 mmol/L (21.0-32.0) 12/07/21 05:35 Anion Gap 12 (5-15) 12/07/21 05:35 BUN 55 mg/dL (7-18) H 12/07/21 05:35 Creatinine 6.91 mg/dL (0.55-1.02) H 12/07/21 05:35 Est GFR (MDRD) Af Amer 8 mL/min (>60) L 12/07/21 05:35 Est GFR (MDRD) Non-Af 6 mL/min (>60) L 12/07/21 05:35 BUN/Creatinine Ratio 8.0 RATIO (10-20) L 12/07/21 05:35 Glucose 202 mg/dL (74-106) H 12/07/21 05:35 Microbiology: Microbiology 12/05/21 20:43 Nasal Secretion SARS-CoV-2 Antigen (Rapid) - Final Goal Trough: 10-15 mcg/mL Pharmacy Plan for Drug Dosing: NEW START IV VANCOMYCIN Consulting Physician: Dr. Taylor Indication: SSTI Goal Trough: 10-15 SrCr: Hemodialysis patient: gets dialysis M/W/F Comments: 1750mg IV x1 ordered, pt not getting HD today- verified with nursing Vancomycin Dose: 750mg IV x1 12/08/21 after HD. Will dose vancomycin based on random levels after this. Pending Level: RANDOM pre-HD level 12/11/21 with AM labs Pharmacy Service will continue to monitor and adjust dosing as required.
--- NOTE | 2021-12-07 09:56 | CASEMGMT ---
NIEVES BIANCHI NOTE: Intro role of CM to patient and BOYD form explained re: Observation status for treatment of hyperkalemia. Explained hospitalization will be paid per her insurance policy for Outpatient billing and condition will continue to be evaluated for Inpt necessity. Also let pt know that [facility] sends paper in the billing packet with their phone number if questions arise. Pt verbalizes understanding and does not have any questions. Form signed, copy made and placed in chart, and original given to pt. Rolando DOWNING RN CM
[2021-12-07 12:06] LABS: Bedside Glucose 132 mg/dL (74-106)
[2021-12-07] MEDS: 0.9% Saline Lock 10 ML Syringe IV ×2 (13:17→21:23)
--- NOTE | 2021-12-07 14:47 | PCM.PN.REN ---
Subjective Subjective Following for ESRD Patient is complaining of some decreased appetite with nausea. Otherwise states feeling okay today. No overnight events. Reports tolerated dialysis yesterday. Objective Data Objective Data Vital Signs: Vital Signs Temp Pulse Resp BP Pulse Ox O2 Del Method 98.2 F 77 14 144/68 H 96 Room Air 12/07/21 08:13 12/07/21 11:25 12/07/21 08:13 12/07/21 08:13 12/07/21 08:13 12/07/21 13:28 Oxygen Delivery Method Room Air Weight: 115.1 kg Body Mass Index (BMI) 41.5 Intake & Output: Intake and Output for Last 24 Hours 12/05/21 12/06/21 12/07/21 23:59 23:59 23:59 Intake Total 2295 / 2295 1355 / 1355 Output Total 1600 / 1600 Balance 695 / 695 1355 / 1355 Lab / Micro Data Result Diagrams: 12/06/21 05:55 12/07/21 05:35 Labs: Laboratory Results - last 24 hr 12/06/21 16:17: POC Glucose 157 H 12/06/21 21:21: POC Glucose 292 H 12/07/21 05:35: Sodium 134 L, Potassium 4.7, Chloride 97 L, Carbon Dioxide 25.0, Anion Gap 12, BUN 55 H, Creatinine 6.91 H, Estim Creat Clear Calc 7.40, Est GFR (MDRD) Af Amer 8 L, Est GFR (MDRD) Non-Af 6 L, BUN/Creatinine Ratio 8.0 L, Glucose 202 H, Calcium 8.2 L 12/07/21 06:29: POC Glucose 194 H 12/07/21 11:40: POC Glucose 132 H Micro: Microbiology 12/05/21 20:43 Nasal Secretion SARS-CoV-2 Antigen (Rapid) - Final Physical Exam Narrative Alert oriented x3, no apparent distress Cardio: RRR, S1-S2 Respiratory: Lung sounds clear anteriorly no wheezes, rhonchi or rales noted. Abdomen: Soft, nontender, positive bowel sounds x4 quadrants Extremities: 2+ pitting edema noted bilateral lower legs and feet AV fistula positive thrill and bruit Assessment & Plan Assessment/Plan (1) Hyperkalemia: (2) ESRD (end stage renal disease): (3) Chronic anemia: (4) Diarrhea: PLAN: Plan -ESRD, outpatient dialysis schedule Saturday. No acute indication for [employer]OR [employer]MINISTRATION today. Next dialysis tomorrow over 4 hours on 2K bath and attempt fluid removal as patient/blood pressure tolerates -Hyperkalemia from missing dialysis. Potassium is 4.7 today. -Anemia of chronic disease; hemoglobin 9.6 -Right flank cellulitis; started on IV antibiotics, vancomycin -History of hypertension; blood pressures acceptable. Please hold antihypertensives morning of dialysis.
[2021-12-07 18:05] LABS: Bedside Glucose 131 mg/dL (74-106)
[2021-12-07] MEDS: Pramipexole Di-HCl 1 MG Tablet PO (21:23)
[2021-12-07] MEDS: MELATONIN 10 MG TABLET PO (21:24)
[2021-12-07] MEDS: traZODone 100 MG Tablet 200 MG PO (21:24)
[2021-12-07] MEDS: Atorvastatin Calcium 10 MG Tablet PO (21:24)
[2021-12-07 22:10] LABS: Bedside Glucose 88 mg/dL (74-106)
[2021-12-08] VITALS (9 sets, daily range): BP systolic 141–148; BP diastolic 63–73; PULSE 70–78; RESP 15–16; TEMP 36.1–36.8; O2SAT 97–100
[2021-12-08 04:10] LABS: Bedside Glucose 92 mg/dL (74-106)
[2021-12-08] MEDS: Levothyroxine 88 MCG Tablet PO (06:23)
[2021-12-08] MEDS: Nystatin Powder 15gm Bottle 1 APPLIC TOPICAL (06:24)
[2021-12-08 06:56] LABS: Bedside Glucose 101 mg/dL (74-106)
--- NOTE | 2021-12-08 08:01 | PCM.PN.REN ---
Subjective Subjective Following for ESRD Sitting up in bed eating breakfast. No overnight events. No complaints. Objective Data Objective Data Vital Signs: Vital Signs Temp Pulse Resp BP Pulse Ox O2 Del Method 97.5 F L 70 16 148/63 H 99 Room Air 12/08/21 05:14 12/08/21 07:09 12/08/21 05:14 12/08/21 05:14 12/08/21 07:05 12/08/21 07:05 Oxygen Delivery Method Room Air Weight: 115.1 kg Body Mass Index (BMI) 41.5 Intake & Output: Intake and Output for Last 24 Hours 12/06/21 12/07/21 12/08/21 23:59 23:59 23:59 Intake Total 2295 / 2295 1355 / 1355 Output Total 1600 / 1600 Balance 695 / 695 1355 / 1355 Lab / Micro Data Result Diagrams: 12/06/21 05:55 12/07/21 05:35 Labs: Laboratory Results - last 24 hr 12/07/21 11:40: POC Glucose 132 H 12/07/21 17:07: POC Glucose 131 H 12/07/21 21:17: POC Glucose 88 12/08/21 03:50: POC Glucose 92 12/08/21 05:11: POC Glucose 101 Micro: Microbiology 12/05/21 20:43 Nasal Secretion SARS-CoV-2 Antigen (Rapid) - Final Physical Exam Narrative Alert oriented x3, no apparent distress Cardio: RRR, S1-S2 Respiratory: Lung sounds clear anteriorly Abdomen: Soft, nontender, positive bowel sounds x4 quadrants Extremities: 1+ pitting edema noted bilateral lower legs and feet AV fistula positive thrill and bruit Assessment & Plan Assessment/Plan (1) Hyperkalemia: (2) ESRD (end stage renal disease): (3) Chronic anemia: (4) Diarrhea: PLAN: Plan -ESRD, outpatient dialysis schedule Saturday. Dialysis today over 4 hours on 2K bath and attempt fluid removal as patient/blood pressure tolerates -Hyperkalemia from missing dialysis. Last Potassium is 4.7. -Anemia of chronic disease; hemoglobin 9.6. [facility]. -Right flank cellulitis; started on IV antibiotics, vancomycin -History of hypertension; blood pressures acceptable. Please hold antihypertensives morning of dialysis. -discharge planning in progress. Possible discharge to home tomorrow
--- NOTE | 2021-12-08 08:35 | PCM.PN.HOSP ---
Subjective Subjective Patient seen right flank erythema significantly improved. Currently undergoing dialysis with plans for patient to be assessed for possible discharge following her dialysis Objective Data Objective Data Vital Signs: Vital Signs Temp Pulse Resp BP Pulse Ox O2 Del Method 97.5 F L 70 16 148/63 H 99 Room Air 12/08/21 05:14 12/08/21 07:09 12/08/21 05:14 12/08/21 05:14 12/08/21 07:05 12/08/21 07:05 Oxygen Delivery Method Room Air Weight: 115.1 kg Body Mass Index (BMI) 41.5 Intake & Output: Intake and Output for Last 24 Hours 12/06/21 12/07/21 12/08/21 23:59 23:59 23:59 Intake Total 2295 / 2295 1355 / 1355 Output Total 1600 / 1600 Balance 695 / 695 1355 / 1355 Lab / Micro Data Result Diagrams: 12/06/21 05:55 12/07/21 05:35 Labs: Laboratory Results - last 24 hr 12/07/21 11:40: POC Glucose 132 H 12/07/21 17:07: POC Glucose 131 H 12/07/21 21:17: POC Glucose 88 12/08/21 03:50: POC Glucose 92 12/08/21 05:11: POC Glucose 101 Micro: Microbiology 12/05/21 20:43 Nasal Secretion SARS-CoV-2 Antigen (Rapid) - Final Physical Exam Narrative GENERAL: cooperative HEENT: Atraumatic; normocephalic EYES; Anicteric, Normal Conjunctiva NECK; supple, normal thyroid, RESPIRATORY: Diminished to auscultation CARDIOVASCULAR: Regular S1 S2, GI: soft, normoactive bowel sounds, : No Renal angle tenderness; EXTREMITIES: No edema, no clubbing, MUSCULOSKELETAL: no muscle wasting NEURO: Awake; no lateralizing signs. SKIN: An area of erythema and warmth on the right flank PSYCH; Flat affect Assessment & Plan Assessment/Plan (1) Hyperkalemia: (2) Dyspnea: (3) Type 2 diabetes mellitus: (4) Morbid obesity due to excess calories: PLAN: Plan Patient is a 66-year-old lady with history of end-stage renal disease on dialysis Wednesdays and Fridays who presented to the emergency department with shortness of breath as well as nausea. Chest x-ray obtained on admission did not show any acute radiographic abnormalities. Patient was found to have potassium of 6.5 1. Hyperkalemia ? Secondary to patient end-stage renal disease potassium on admission was 6.5. He did receive Kayexalate albuterol as well as insulin with glucose repeat potassium ordered for monitoring admitted to a monitored bed subsequently. Plan is for patient to undergo dialysis ? Patient was discharged home following her dialysis ? 12/07/2021 potassium down to 4.7 2. Right flank cellulitis Plan was for patient to have been discharged home the day prior she was however found to have right flank rash erythematous and warm to touch. An assessment of cellulitis made. Patient started on antibiotics?vancomycin. Patient has multiple allergies -12/08/2021 Patient seen right flank erythema significantly improved. Currently undergoing dialysis with plans for patient to be assessed for possible discharge following her dialysis 3. End-stage renal disease ? On dialysis on Wednesdays and Fridays consult placed to nephrology for dialysis orders 4. Acute dyspnea ? Secondary to fluid overload following patient having missed dialysis.. Placed on supplemental oxygen titrated to keep saturation greater than 90. Patient did receive dialysis during her hospital stay 5. Diabetes mellitus type 2 ? Did continue patient home regimen consisting of long-acting insulin and scheduled short acting insulin. Was also placed on correction factor sliding scale coverage 6. Hypothyroidism - Patient is on levothyroxine home dose continued 7. Class III obesity with BMI of 41.6 ? Weight loss advised 8 DVT prophylaxis ? SC heparin Charges/Coding Visit Charges Inpatient E&M: 51379 Subs Hosp L2
[2021-12-08 12:15] LABS: Bedside Glucose 106 mg/dL (74-106)
--- NOTE | 2021-12-08 12:15 | CASEMGMT ---
NIEVES BIANCHI GERONTOLOGICAL NURSE PRACTITIONER CM to room to meet with patient for initial transition planning/care coordination assessment. NIEVES BIANCHI introduced self and role at [facility].? Pt voices understanding and consents to assessment at this time.? Pt resting in bed in no distress at this time, just finishing HD. Pt is A/O at this time and answers all questions appropriately.?? Care providers, pharmacy, and demographics verified/updated at this time. PCP: Dr Archuleta Specialists: Dr Strickland-nephradha. 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 Pt goes to HD MWF. Chair time 0610 Preferred Pharmacy: [facility] Insurance: [employer] [facility] [place] Benefit:? Yes Living Will/HPOA:? Pt has both LW and HPOA, who is her , Carlos LNOK: , Don Living Arrangements: Lives w/, Don, in 2nd floor apt w/14 steps. Rails on one side. No elevator access. Washer and dryer in the basement. Pt states both she and her have difficulty navigating the stairs. She states he has fallen on them and her ability is not good at all. She states they are looking for another place to live. She reports limited income. JUDITH, Yudy, made aware for resources. Transportation: Pt states drives most of the time. drives occasionally. She denies transportation concerns. DME: States has the following DME:? shower chair, BSC, rollator, medical alert button, CPAP, nebulizer, and pulse ox ?Pt states no need for further DME at this time.? HHC/SNF: No hx of either. Pt denies need for HHC or OP therapy Pt wishes to return home and states has no concerns with going home at time of discharge.? CM to follow for any further discharge planning/needs.? Pt voices no further concerns/needs at this time.? Advised pt to ask for CM if any further questions/concerns/needs arise.? Voices understanding. PLAN: ?Home Rolando DOWNING RN, CM
--- NOTE | 2021-12-08 12:47 | PCM.DC.SUM ---
Providers Date of Admission: 12/07/21 Date of Discharge: 12/08/21 Primary Care Physician: Dr. Velia Archuleta MD Consultations 12/05/21 23:27 Consult: Nephrology Routine Consulting Provider: Selina Marlow Reason for Consult: Hyperkalemia; ESRD EMERGENT Consult: No MD Notified: Yes Date Notified: 12/05/21 Time Notified: 22:42 Method of Notification: ED Physician Initiated Reason For Visit: HYPERKALEMIA Diagnosis Discharge Diagnosis (1) Hyperkalemia: Status: Acute Code(s): E87.5 - Hyperkalemia (2) Dyspnea: Status: Acute Code(s): R06.00 - Dyspnea, unspecified (3) Type 2 diabetes mellitus: Status: Chronic Code(s): E11.9 - Type 2 diabetes mellitus without complications (4) Morbid obesity due to excess calories: Status: Acute Code(s): E66.01 - Morbid (severe) obesity due to excess calories Plan Patient is a 66-year-old lady with history of end-stage renal disease on dialysis Wednesdays and Fridays who presented to the emergency department with shortness of breath as well as nausea. Chest x-ray obtained on admission did not show any acute radiographic abnormalities. Patient was found to have potassium of 6.5 1. Hyperkalemia ? Secondary to patient end-stage renal disease potassium on admission was 6.5. He did receive Kayexalate albuterol as well as insulin with glucose repeat potassium ordered for monitoring admitted to a monitored bed subsequently. Plan is for patient to undergo dialysis ? Patient was discharged home following her dialysis ? 12/07/2021 potassium down to 4.7 2. Right flank cellulitis Plan was for patient to have been discharged home the day prior she was however found to have right flank rash erythematous and warm to touch. An assessment of cellulitis made. Patient started on antibiotics?vancomycin. Patient has multiple allergies -12/08/2021 Patient seen right flank erythema significantly improved. Currently undergoing dialysis with plans for patient to be assessed for possible discharge following her dialysis 3. End-stage renal disease ? On dialysis on Wednesdays and Fridays consult placed to nephrology for dialysis orders 4. Acute dyspnea ? Secondary to fluid overload following patient having missed dialysis.. Placed on supplemental oxygen titrated to keep saturation greater than 90. Patient did receive dialysis during her hospital stay 5. Diabetes mellitus type 2 ? Did continue patient home regimen consisting of long-acting insulin and scheduled short acting insulin. Was also placed on correction factor sliding scale coverage 6. Hypothyroidism - Patient is on levothyroxine home dose continued 7. Class III obesity with BMI of 41.6 ? Weight loss advised 8 DVT prophylaxis ? SC heparin Medications at Discharge Home Medications ascorbic acid (vitamin C) 500 mg chewable tablet 1,000 mg PO DAILY supplement 02/20/15 cholecalciferol (vitamin D3) 25 mcg (1,000 unit) tablet 1,000 unit PO BID supplement 02/20/15 atorvastatin 10 mg tablet 10 mg PO QHS cholestrol 10/19/16 insulin aspart U-100 100 unit/mL (3 mL) subcutaneous pen (Novolog Flexpen U-100 Insulin aspart) 22 units subcut 0800,1700 blood sugar 05/29/18 insulin glargine 100 unit/mL (3 mL) subcutaneous pen (Lantus Solostar U-100 Insulin) 50 unit SQ BID blood sugar 05/29/18 tacrolimus 1 mg capsule, immediate-release (Prograf) 0.5 mg PO BID REJECTION 09/10/19 trazodone 150 mg tablet 200 mg PO QHS SLEEP 09/10/19 vitamin B complex 1 tablet PO DAILY SUPPLEMENT 09/10/19 carvedilol 25 mg tablet 12.5 mg PO BID heart 02/25/20 hydroxyzine HCl 25 mg tablet 25 mg PO BID PRN Itching 05/23/20 levothyroxine 25 mcg tablet 88 mcg PO DAILY thyroid 05/23/20 ropinirole 1 mg tablet 1 mg PO .QAM 05/23/20 torsemide 20 mg tablet 60 mg PO DAILY FLUID 05/23/20 ropinirole 2 mg tablet,extended release 24 hr 2 mg PO QHS 06/10/20 sevelamer carbonate 800 mg tablet (Renvela) 800 mg PO TID 06/10/20 clopidogrel 75 mg tablet (Plavix) 75 mg PO DAILY 04/28/21 nitroglycerin 0.4 mg sublingual tablet 0.4 mg sublingual Q5M PRN Cardiac/Chest Pain #30 tabs 04/29/21 pantoprazole 40 mg tablet,delayed release 40 mg PO BID #60 tabs 04/29/21 biotin 1 mg capsule 1 mg PO DAILY 08/11/21 melatonin 3 mg tablet 10 mg PO QHS 08/11/21 sertraline 50 mg tablet (Zoloft) 50 mg PO DAILY mood 08/11/21 insulin aspart U-100 100 unit/mL (3 mL) subcutaneous pen 26 unit subcut 1200 diabetes 10/22/21 albuterol sulfate 90 mcg/actuation aerosol inhaler 2 puff IH Q4H PRN PRN Sob &/Or Wheezing 30 days #8.6 grams 10/25/21 dicyclomine 20 mg tablet 20 mg PO TID PRN abdominal discomfort #20 tabs 10/25/21 hydrocortisone 100 mg/60 mL enema 300 mg (180 mL) ND QHS 21 days #3,780 mL 10/25/21 polyethylene glycol 3350 17 gram/dose oral powder (Miralax) 17 g PO DAILY #510 grams 10/25/21 diphenoxylate-atropine 2.5 mg-0.025 mg tablet (Lomotil) 1 tab PO TID PRN diarrhea #90 tabs 10/27/21 doxycycline hyclate 100 mg capsule 100 mg PO BID #14 caps 12/08/21 Hospital Course Summary of Care Provided Minutes Spent on Discharge: 35 Physical Exam Narrative GENERAL: cooperative HEENT: Atraumatic; normocephalic EYES; Anicteric, Normal Conjunctiva NECK; supple, normal thyroid, RESPIRATORY: Diminished to auscultation CARDIOVASCULAR: Regular S1 S2, GI: soft, normoactive bowel sounds, : No Renal angle tenderness; EXTREMITIES: No edema, no clubbing, MUSCULOSKELETAL: no muscle wasting NEURO: Awake; no lateralizing signs. SKIN: An area of erythema and warmth on the right flank PSYCH; Flat affect Weight / BMI Weight Weight: 115.1 kg Body Mass Index (BMI) 41.5 ABG / Lab / Microbiology Data Result Diagrams: 12/06/21 05:55 12/07/21 05:35 Laboratory: Laboratory Results - last 24 hr 12/07/21 17:07: POC Glucose 131 H 12/07/21 21:17: POC Glucose 88 12/08/21 03:50: POC Glucose 92 12/08/21 05:11: POC Glucose 101 12/08/21 11:54: POC Glucose 106 Microbiology: Microbiology 12/05/21 20:43 Nasal Secretion SARS-CoV-2 Antigen (Rapid) - Final Meaningful Use Info Meaningful Use Diagnoses (Choose all that apply): None applicable Discharge Plan Admission Admit Date/Time: 12/07/21 16:10 Attending Provider: Jag Taylor Primary Care Provider: Velia Acrhuleta Consulting Providers: Selina Marlow ; Dexter Garner Discharge Orders/Prescriptions Prescriptions: New doxycycline hyclate 100 mg capsule 100 mg PO BID Qty: 14 0RF Continued hydroxyzine HCl 25 mg tablet 25 mg PO BID PRN (Reason: Itching) ascorbic acid (vitamin C) 500 MG tablet,chewable 1,000 mg PO DAILY Label Comments: supplement cholecalciferol (vitamin D3) 1,000 UNIT tablet 1,000 unit PO BID Label Comments: bone health levothyroxine 25 mcg tablet 88 mcg PO DAILY atorvastatin 10 MG tablet 10 mg PO QHS insulin aspart U-100 [Novolog Flexpen U-100 Insulin] 100 UNITS/ML insulin pen 22 units SC 0800,1700 insulin glargine [Lantus Solostar U-100 Insulin] 100 UNIT/ML insulin pen 50 unit SQ BID Hold Instructions: until follow up with pcp your blood sugars have been low while in hospital ropinirole 1 mg tablet 1 mg PO .QAM trazodone 150 MG tablet 200 mg PO QHS tacrolimus [Prograf] 1 MG capsule 0.5 mg PO BID vitamin B complex 1 EACH tablet 1 tablet PO DAILY torsemide 20 mg tablet 60 mg PO DAILY carvedilol 25 MG tablet 12.5 mg PO BID sevelamer carbonate [Renvela] 800 MG tablet 800 mg PO TID ropinirole 2 MG tablet extended release 24 hr 2 mg PO QHS clopidogrel [Plavix] 75 mg Tablet 75 mg PO DAILY Hold Instructions: Resume on 10/27/21. nitroglycerin 0.4 mg Tablet, Sublingual 0.4 mg sublingual Q5M PRN (Reason: Cardiac/Chest Pain) Qty: 30 0RF pantoprazole 40 MG tablet,delayed release (DR/EC) 40 mg PO BID Qty: 60 2RF Rx Instructions: 40 mg twice daily for 8 weeks, that is 2 months sertraline [Zoloft] 50 MG tablet 50 mg PO DAILY Label Comments: depression biotin 1 mg Capsule 1 mg PO DAILY melatonin 3 mg Tablet 10 mg PO QHS insulin aspart U-100 100 unit/mL (3 mL) Insulin Pen 26 unit SUBCUT 1200 hydrocortisone 100 mg/60 mL enema 300 mg ND QHS 21 Days Qty: 3780 0RF polyethylene glycol 3350 [Miralax] 17 gram/dose powder 17 g PO DAILY Qty: 510 0RF dicyclomine 20 mg tablet 20 mg PO TID PRN (Reason: abdominal discomfort) Qty: 20 0RF albuterol sulfate 1 PUFF inhaler 2 puff IH Q4H PRN PRN (Reason: Sob &/Or Wheezing) 30 Days Qty: 8.6 0RF diphenoxylate-atropine [Lomotil] 2.5-0.025 mg tablet 1 tab PO TID PRN (Reason: diarrhea) Qty: 90 2RF Referrals / Follow Up: Velia Archuleta MD [Primary Care Provider] - In 1 Week Disposition Disposition (needs filled in before D/C Order can be placed): Home, Self Care Charges/Coding Visit Charges Inpatient E&M: 86214 Disch Hosp
--- NOTE | 2021-12-08 12:52 | DIALYSIS ---
Hemodialysis tx completed x 4 hours without complications. Pt tolerated tx well, fluid removed 2,200ml using crit-line monitor to B-profile. Vitals stable throughout tx. Verbal report to NIEVES Reis post tx
[2021-12-08] MEDS: Diphenoxylate/Atrop 1 Tablet PO (13:21)
[2021-12-08] MEDS: Insulin Glargine-YFGN 100 UNIT/ML Pen 25 UNIT SC (13:22)
[2021-12-08] MEDS: Vitamin B Comp W-C Capsule 1 CAP PO (13:23)
[2021-12-08] MEDS: Clopidogrel Bisulfate 75 MG Tablet PO (13:24)
[2021-12-08] MEDS: Sertraline 50 MG Tablet PO (13:24)
[2021-12-08] MEDS: Pramipexole Di-HCl 0.5 MG Tablet PO (13:24)
[2021-12-08] MEDS: SEVELAMER CARBONATE 800 MG TABLET PO (13:25)
[2021-12-08] MEDS: Ascorbic Acid 500 MG Tablet 1000 MG PO (13:25)
--- NOTE | 2021-12-08 13:47 | CASEMGMT ---
RN CM said patient and her are looking for a different place to live due to too many steps. SW provided patient with a list of available units in the area that [facility] puts out. Patient was thankful. Yudy WEBER
--- NOTE | 2021-12-08 14:30 | PHA.DC.MC ---
Pharmacy Service has performed discharge medication reconciliation and counseling for this patient. 1. DOXYCYCLINE 100MG PO BID X 7 DAYS The patient's discharge medication list was reviewed for discrepancies and discrepancies were resolved. Home Medications ascorbic acid (vitamin C) 500 mg chewable tablet 1,000 mg PO DAILY supplement 02/20/15 cholecalciferol (vitamin D3) 25 mcg (1,000 unit) tablet 1,000 unit PO BID supplement 02/20/15 atorvastatin 10 mg tablet 10 mg PO QHS cholestrol 10/19/16 insulin aspart U-100 100 unit/mL (3 mL) subcutaneous pen (Novolog Flexpen U-100 Insulin aspart) 22 units subcut 0800,1700 blood sugar 05/29/18 insulin glargine 100 unit/mL (3 mL) subcutaneous pen (Lantus Solostar U-100 Insulin) 50 unit SQ BID blood sugar 05/29/18 tacrolimus 1 mg capsule, immediate-release (Prograf) 0.5 mg PO BID REJECTION 09/10/19 trazodone 150 mg tablet 200 mg PO QHS SLEEP 09/10/19 vitamin B complex 1 tablet PO DAILY SUPPLEMENT 09/10/19 carvedilol 25 mg tablet 12.5 mg PO BID heart 02/25/20 hydroxyzine HCl 25 mg tablet 25 mg PO BID PRN Itching 05/23/20 levothyroxine 25 mcg tablet 88 mcg PO DAILY thyroid 05/23/20 ropinirole 1 mg tablet 1 mg PO .QAM restless legs 05/23/20 torsemide 20 mg tablet 60 mg PO DAILY FLUID 05/23/20 ropinirole 2 mg tablet,extended release 24 hr 2 mg PO QHS restless legs 06/10/20 sevelamer carbonate 800 mg tablet (Renvela) 800 mg PO TID kidney disease 06/10/20 clopidogrel 75 mg tablet (Plavix) 75 mg PO DAILY anti platelet 04/28/21 nitroglycerin 0.4 mg sublingual tablet 0.4 mg sublingual Q5M PRN Cardiac/Chest Pain #30 tabs 04/29/21 pantoprazole 40 mg tablet,delayed release 40 mg PO BID #60 tabs 04/29/21 biotin 1 mg capsule 1 mg PO DAILY supplement 08/11/21 melatonin 3 mg tablet 10 mg PO QHS sleep 08/11/21 sertraline 50 mg tablet (Zoloft) 50 mg PO DAILY mood 08/11/21 insulin aspart U-100 100 unit/mL (3 mL) subcutaneous pen 26 unit subcut 1200 diabetes 10/22/21 albuterol sulfate 90 mcg/actuation aerosol inhaler 2 puff IH Q4H PRN PRN Sob &/Or Wheezing 30 days #8.6 grams 10/25/21 dicyclomine 20 mg tablet 20 mg PO TID PRN abdominal discomfort #20 tabs 10/25/21 hydrocortisone 100 mg/60 mL enema 300 mg (180 mL) FL QHS 21 days #3,780 mL 10/25/21 polyethylene glycol 3350 17 gram/dose oral powder (Miralax) 17 g PO DAILY #510 grams 10/25/21 diphenoxylate-atropine 2.5 mg-0.025 mg tablet (Lomotil) 1 tab PO TID PRN diarrhea #90 tabs 10/27/21 doxycycline hyclate 100 mg capsule 100 mg PO BID #14 caps 12/08/21 The patient was counseled on the following discharge medications and changes in medications for homegoing were reviewed. The Reason for Use, instructions for use, and potential side effects were reviewed for all new medications. The patient's questions regarding all of their medications were answered. The patient was able to verbally demonstrate an understanding of their discharge medications.
== END 2021-12-08 15:26 | disposition home or self-care (01) | DRG 602 ==
LOC: ED 22:32 → PCU 12-06 01:27
PROVIDERS: Nurse Practitioner Adult Health; Admitting Provider Hospitalist; Emergency Provider Emergency Medicine; PCP Internal Medicine; Visit Provider Internal Medicine
DX: L03.312 Cellulitis of back [any part except buttock and flank] (principal); N18.6 End stage renal disease; I12.0 Hypertensive chronic kidney disease with stage 5 chronic kidney disease or end stage renal disease; Z68.41 Body mass index [BMI] 40.0-44.9, adult; Z94.4 Liver transplant status; D69.6 Thrombocytopenia, unspecified; D63.1 Anemia in chronic kidney disease; E87.79 Other fluid overload; E11.22 Type 2 diabetes mellitus with diabetic chronic kidney disease; E11.65 Type 2 diabetes mellitus with hyperglycemia; E66.01 Morbid (severe) obesity due to excess calories; Z79.4 Long term (current) use of insulin; J44.9 Chronic obstructive pulmonary disease, unspecified; Z99.2 Dependence on renal dialysis; E87.5 Hyperkalemia; I25.10 Atherosclerotic heart disease of native coronary artery without angina pectoris; E03.9 Hypothyroidism, unspecified; K52.9 Noninfective gastroenteritis and colitis, unspecified; Z95.5 Presence of coronary angioplasty implant and graft; Z90.49 Acquired absence of other specified parts of digestive tract; Z90.710 Acquired absence of both cervix and uterus; Z79.02 Long term (current) use of antithrombotics/antiplatelets; Z79.899 Other long term (current) drug therapy
CPT/HCPCS: 36415; 71045; 80048; 80076; 82962; 83690; 85025; 87811; 90937; 93005; 94640; 97802; 99285; J7030; J7040; J7050; A4216; G0257; J1940

== ENCOUNTER 2022-02-07 16:05 | Emergency (ER) | payer MEDICARE, MEDICAID, SELFPAY ==
[2022-02-07 16:06] VITALS: BP 161/58; PULSE 89; RESP 18; TEMP 36.2; O2SAT 97; BMI 40.3
[2022-02-07 16:59] VITALS: O2SAT 97
--- NOTE | 2022-02-07 17:56 | EX.ED.DYSGE1 ---
HPI History of Present Illness Chief Complaint: Itching Detail of Chief Complaint: Back is itching Informant: patient Onset/Context/Timing Onset: Days Context: Gradual Onset Timing: Continuous Current Severity: Moderate Maximum Severity: Moderate Narrative Narrative: 66-year-old female extensive past medical history including COPD, end-stage renal disease dialysis Saturday, cirrhosis of the liver transplant DVT and diabetes. Complaining of itching to her back for approximately a week. She tried hydroxyzine, Benadryl and a steroid cream none of which helped. Said today she had to cut her dialysis short by 2 hours because the itching got so severe. She denies any other illness. Prior similar symptoms: No Recent Illness/Hospitalization: No PFSH PFS Medical History Anemia Anemia in chronic kidney disease Back pain Blister Cancer Cardiology follow-up encounter Celiac disease Chronic kidney disease, stage 3 Chronic kidney failure Chronic renal failure, stage 5 Cirrhosis COPD (chronic obstructive pulmonary disease) Diabetes Dialysis patient DVT (deep venous thrombosis) ESRD (end stage renal disease) Gastric reflux GERD (gastroesophageal reflux disease) History of echocardiogram (~01/22/20) History of edema History of irregular heartbeat History of renal disease History of stress test (~12/07/19) History of uterine cancer Hx of Krueger's palsy Hypertension Infection involving suture with abscess Insulin dependent diabetes mellitus LIVER TRANSPLANT Non-smoker Osteoporosis Pancytopenia Sleep apnea Wears dentures Wears glasses Home Medications ascorbic acid (vitamin C) 500 mg chewable tablet 1,000 mg PO DAILY supplement 02/20/15 [History Last Taken 09/09/19] cholecalciferol (vitamin D3) 25 mcg (1,000 unit) tablet 1,000 unit PO BID supplement 02/20/15 [History Last Taken 09/09/19] atorvastatin 10 mg tablet 10 mg PO QHS cholestrol 10/19/16 [History Last Taken 09/09/19] insulin aspart U-100 100 unit/mL (3 mL) subcutaneous pen (Novolog Flexpen U-100 Insulin aspart) 22 units subcut 0800,1700 blood sugar 05/29/18 [History Last Taken 09/09/19] insulin glargine 100 unit/mL (3 mL) subcutaneous pen (Lantus Solostar U-100 Insulin) 50 unit SQ BID blood sugar 05/29/18 [History Last Taken 09/09/19] tacrolimus 1 mg capsule, immediate-release (Prograf) 0.5 mg PO BID REJECTION 09/10/19 [History Last Taken 04/27/21] trazodone 150 mg tablet 200 mg PO QHS SLEEP 09/10/19 [History Last Taken 09/09/19] vitamin B complex 1 tablet PO DAILY SUPPLEMENT 09/10/19 [History Last Taken 09/09/19] carvedilol 25 mg tablet 12.5 mg PO BID heart 02/25/20 [History Last Taken 08/03/20] hydroxyzine HCl 25 mg tablet 25 mg PO BID PRN Itching 05/23/20 [History Last Taken Unknown] levothyroxine 25 mcg tablet 88 mcg PO DAILY thyroid 05/23/20 [History Last Taken 04/28/21] ropinirole 1 mg tablet 1 mg PO .QAM restless legs 05/23/20 [History Last Taken 06/16/20] torsemide 20 mg tablet 60 mg PO DAILY FLUID 05/23/20 [History Last Taken Unknown] ropinirole 2 mg tablet,extended release 24 hr 2 mg PO QHS restless legs 06/10/20 [History Last Taken Unknown] sevelamer carbonate 800 mg tablet (Renvela) 800 mg PO TID kidney disease 06/10/20 [History Last Taken Unknown] clopidogrel 75 mg tablet (Plavix) 75 mg PO DAILY anti platelet 04/28/21 [History Last Taken Unknown] nitroglycerin 0.4 mg sublingual tablet 0.4 mg sublingual Q5M PRN Cardiac/Chest Pain #30 tabs 04/29/21 [Rx Last Taken Unknown] pantoprazole 40 mg tablet,delayed release 40 mg PO BID #60 tabs 04/29/21 [Rx Last Taken Unknown] biotin 1 mg capsule 1 mg PO DAILY supplement 08/11/21 [History Last Taken Unknown] melatonin 3 mg tablet 10 mg PO QHS sleep 08/11/21 [History Last Taken Unknown] sertraline 50 mg tablet (Zoloft) 50 mg PO DAILY mood 08/11/21 [History Last Taken Unknown] insulin aspart U-100 100 unit/mL (3 mL) subcutaneous pen 26 unit subcut 1200 diabetes 10/22/21 [History Last Taken Unknown] albuterol sulfate 90 mcg/actuation aerosol inhaler 2 puff IH Q4H PRN PRN Sob &/Or Wheezing 30 days #8.6 grams 10/25/21 [Rx Last Taken Unknown] dicyclomine 20 mg tablet 20 mg PO TID PRN abdominal discomfort #20 tabs 10/25/21 [Rx Last Taken Unknown] hydrocortisone 100 mg/60 mL enema 300 mg (180 mL) WA QHS 21 days #3,780 mL 10/25/21 [Rx Last Taken Unknown] polyethylene glycol 3350 17 gram/dose oral powder (Miralax) 17 g PO DAILY #510 grams 10/25/21 [Rx Last Taken Unknown] diphenoxylate-atropine 2.5 mg-0.025 mg tablet (Lomotil) 1 tab PO TID PRN diarrhea #90 tabs 10/27/21 [Rx Last Taken Unknown] doxycycline hyclate 100 mg capsule 100 mg PO BID #14 caps 12/08/21 [Rx Last Taken Unknown] hydroxyzine pamoate 25 mg capsule (Vistaril) 25 mg PO TID PRN itching #20 caps 02/07/22 [Rx Last Taken Unknown] Allergy/AdvReac Type Severity Reaction Status Date / Time amlodipine [From Norvasc] Allergy Severe Hives Verified 02/07/22 16:08 ampicillin sodium Allergy Severe Hives Verified 02/07/22 16:08 [From Unasyn] buspirone HCl [From BuSpar] Allergy Severe Hives Verified 02/07/22 16:08 cefadroxil [From Duricef] Allergy Severe Hives Verified 02/07/22 16:08 lisinopril Allergy Severe Swelling Verified 02/07/22 16:08 naproxen Allergy Severe Hives Verified 02/07/22 16:08 niacin Allergy Severe Hives Verified 02/07/22 16:08 [From Niaspan Extended-Release] sulbactam sodium Allergy Severe Hives Verified 02/07/22 16:08 [From Unasyn] Sulfa (Sulfonamide Allergy Severe Hives Verified 02/07/22 16:08 Antibiotics) cephalexin [From Keflex] Allergy Hives Verified 02/07/22 16:08 omeprazole AdvReac Severe Other Verified 02/07/22 16:08 losartan AdvReac Swelling Verified 02/07/22 16:08 Family History Mother Diabetes Anemia Father Hypertension LUNG/RESPIRATORY DISEASE Surgical History History of appendectomy History of cholecystectomy History of coronary artery stent placement History of left knee surgery History of left salpingo-oophorectomy History of liver transplant History of radical hysterectomy History of ventral hernia repair S/P arteriovenous (AV) fistula creation (~06/16/20) Social History housing: apartment current occupational status: disabled Smoking Status: Never smoker substance use type: does not use ROS ROS ED ROS Narrative Itching only. No recent illness. Review of Systems ROS Unobtainable: Denies due to encephalopathy Constitutional Constitutional ED: Denies chills or fever(s) Eyes Eyes: Denies blurry vision ENT ENT ED: Denies ear pain Cardiovascular Cardiovascular: Denies chest pain Respiratory/Chest Respiratory/Chest: Denies cough or dyspnea Gastrointestinal Gastrointestinal: Denies abdominal pain Genitourinary Genitourinary ED: Denies dysuria or hematuria Musculoskeletal Musculoskeletal: Denies arthralgias Integumentary Denies abscess Neurologic Neurologic: Denies headache(s) Psychiatric Psychiatric: Denies anxiety or depression Endocrine Endocrinology: Denies cold intolerance Hematologic/Lymphatic Hematologic/Lymphatic: Reports none Allergic/Immunologic Allergic/Immunologic ED: Denies mouth swelling or tongue swelling EXAM Physical Exam Narrative Exam Narrative: 36-year-old female no acute distress. Vital signs stable afebrile. H EENT exam unremarkable. Lungs clear. Heart regular rhythm. Rate about 90. Abdomen soft nontender normal bowel sounds no peritoneal signs. Moving all 4 extremities. Calves nontender no edema. Back is nontender. There is no significant dry skin. There is no rashes. There is no shingles. There is no signs of infection such as cellulitis. She Lilyan unremarkable back exam if she just says it is itching a lot. Neurologically she is awake and alert. Moving all 4 extremities. Const Vital Signs: 02/07/22 16:06 02/07/22 16:59 Temperature 97.1 F L Temperature Source Temporal Pulse Rate 89 Respiratory Rate 18 Blood Pressure 161/58 H Blood Pressure Mean 92 Pulse Ox 97 97 Oxygen Delivery Method Room Air Room Air Positive well nourished, well developed and obese; Negative for cachectic, contractures or unkempt General Appearance ED: well developed and NAD; Negative for unkempt, cachectic, contractures, cyanotic, diaphoretic or pallor Nutritional Appearance: obese; Negative for cachectic HEENT Reports moist mucous membranes; Denies dry mucous membranes Negative for trauma or tenderness Mouth ED: No dry mucous membranes Mouth: No dry mucous membranes Eyes PERRL and EOMs intact bilaterally General Eye ED: Negative for pale conjunctiva, scleral icterus or other Neck no lymphadenopathy, supple and no JVD General: Negative for tenderness Lymph Lymphatic: Negative for other Chest Wall Negative for inspection of chest normal or palpation of chest normal Chest: Negative for other Resp normal respiratory effort and clear to auscultation bilaterally Effort and Inspection: Negative for retractions Auscultation: Negative for rales, rhonchi or wheezes Cardio regular rate, regular rhythm, S1 normal heart sound, S2 normal heart sound and no murmurs GI normal to inspection, nondistended, normoactive bowel sounds, non-tender, non-distended and no masses Inspection: Negative for abdominal distention Auscultation: normoactive bowel sounds Palpation: soft; Negative for tender or guarding Back/Spine no CVA tenderness General Back: Negative for CVA tenderness Cervical Spine: Negative for cervical spine tenderness Thoracic Spine / Upper Back: Negative for thoracic spinal tenderness or paraspinal muscle tenderness Extremity normal to inspection General Extremety ED: Negative for edema or tenderness General Extremity: Negative for edema Neuro oriented x3 and CN's II-XII intact bilaterally Sensorium / Orientation: alert; Negative for orientation impaired, lethargic or stuporous Motor Exam: strength 5/5 throughout Psych mental status grossly normal Appearance: Negative for unkempt Attitude: No agitated Mood & Affect: Negative for depressed, anxious or tearful Skin no rashes or lesions noted and no wounds General Skin Exam: elasticity normal; Negative for jaundice or pallor Lesions: No lesion noted Rashes: No rashes noted Trauma: Negative for abrasion Wounds: Negative for wounds noted MDM MDM MDM Narrative Medical decision making narrative: Patient with itching. The back exam is unremarkable. There is no significant dry skin or rashes. There is no infection. We will write her a prescription for Atarax and she is to follow-up with dermatology if not improving. Discharge Plan Triage Chief Complaint: Itching ED Provider: Favian Murillo Dx/Rx/DC Orders Clinical Impression: Itching, ESRD (end stage renal disease), Type 2 diabetes mellitus, End stage chronic kidney disease Prescriptions: New hydroxyzine pamoate [Vistaril] 25 mg capsule 25 mg PO TID PRN (Reason: itching) Qty: 20 0RF No Action hydroxyzine HCl 25 mg tablet 25 mg PO BID PRN (Reason: Itching) ascorbic acid (vitamin C) 500 MG tablet,chewable 1,000 mg PO DAILY Label Comments: supplement cholecalciferol (vitamin D3) 1,000 UNIT tablet 1,000 unit PO BID Label Comments: bone health levothyroxine 25 mcg tablet 88 mcg PO DAILY atorvastatin 10 MG tablet 10 mg PO QHS insulin aspart U-100 [Novolog Flexpen U-100 Insulin] 100 UNITS/ML insulin pen 22 units SC 0800,1700 insulin glargine [Lantus Solostar U-100 Insulin] 100 UNIT/ML insulin pen 50 unit SQ BID Hold Instructions: until follow up with pcp your blood sugars have been low while in hospital ropinirole 1 mg tablet 1 mg PO .QAM trazodone 150 MG tablet 200 mg PO QHS tacrolimus [Prograf] 1 MG capsule 0.5 mg PO BID vitamin B complex 1 EACH tablet 1 tablet PO DAILY torsemide 20 mg tablet 60 mg PO DAILY carvedilol 25 MG tablet 12.5 mg PO BID sevelamer carbonate [Renvela] 800 MG tablet 800 mg PO TID ropinirole 2 MG tablet extended release 24 hr 2 mg PO QHS clopidogrel [Plavix] 75 mg Tablet 75 mg PO DAILY Hold Instructions: Resume on 10/27/21. nitroglycerin 0.4 mg Tablet, Sublingual 0.4 mg sublingual Q5M PRN (Reason: Cardiac/Chest Pain) Qty: 30 0RF pantoprazole 40 MG tablet,delayed release (DR/EC) 40 mg PO BID Qty: 60 2RF Rx Instructions: 40 mg twice daily for 8 weeks, that is 2 months sertraline [Zoloft] 50 MG tablet 50 mg PO DAILY Label Comments: depression biotin 1 mg Capsule 1 mg PO DAILY melatonin 3 mg Tablet 10 mg PO QHS insulin aspart U-100 100 unit/mL (3 mL) Insulin Pen 26 unit SUBCUT 1200 hydrocortisone 100 mg/60 mL enema 300 mg WA QHS 21 Days Qty: 3780 0RF polyethylene glycol 3350 [Miralax] 17 gram/dose powder 17 g PO DAILY Qty: 510 0RF dicyclomine 20 mg tablet 20 mg PO TID PRN (Reason: abdominal discomfort) Qty: 20 0RF albuterol sulfate 1 PUFF inhaler 2 puff IH Q4H PRN PRN (Reason: Sob &/Or Wheezing) 30 Days Qty: 8.6 0RF doxycycline hyclate 100 mg capsule 100 mg PO BID Qty: 14 0RF diphenoxylate-atropine [Lomotil] 2.5-0.025 mg tablet 1 tab PO TID PRN (Reason: diarrhea) Qty: 90 2RF Primary Care Provider: Velia Archuleta Referrals: Velia Archuleta MD [Primary Care Provider] - Chelsea Graham MD [Non-Staff] - 1 Week if not improving Activity Restrictions/Additional Instructions: Try to put some Aveeno or oatmeal in your bath to help with the itching. The prescription is for Atarax that will often help with itching. If this does not get better you need to follow-up with a construction sales manager like Dr. Graham's group Disposition Disposition: Home, Self Care
== END 2022-02-07 18:11 | disposition home or self-care (01) ==
PROVIDERS: Emergency Provider Emergency Medicine; PCP Internal Medicine; Visit Provider Emergency Medicine
DX: L29.9 Pruritus, unspecified (principal); Z94.4 Liver transplant status; Z99.2 Dependence on renal dialysis; K74.60 Unspecified cirrhosis of liver; J44.9 Chronic obstructive pulmonary disease, unspecified; E11.22 Type 2 diabetes mellitus with diabetic chronic kidney disease; I12.0 Hypertensive chronic kidney disease with stage 5 chronic kidney disease or end stage renal disease; N18.6 End stage renal disease; I82.409 Acute embolism and thrombosis of unspecified deep veins of unspecified lower extremity; Z79.4 Long term (current) use of insulin; E66.9 Obesity, unspecified
CPT/HCPCS: 99282

== ENCOUNTER 2022-04-07 11:27 | Emergency (ER) | payer MEDICARE, MEDICAID, SELFPAY ==
[2022-04-07 11:29] VITALS: BP 157/52; PULSE 87; RESP 14; TEMP 36.1; O2SAT 96; BMI 41.1
--- NOTE | 2022-04-07 11:41 | RAD_ITS ---
HISTORY: injury. TECHNIQUE: XR Knee Complete 4 Views or More. COMPARISON: 05/22/2015. FINDINGS: BONES : No acute fracture identified. Degenerative osteophytes, sclerosis, and subchondral cysts of the medial compartment. JOINTS: No dislocation. Increased medial joint space narrowing with lateral compartment chondrocalcinosis. Mild joint effusion. RAD/Knee 4 or More Views IMPRESSION: No acute fracture or dislocation identified in the left knee. Mild joint effusion with tricompartmental degenerative change. Electronically Signed: Rut Sommers MD at 12:44 EST ,
--- NOTE | 2022-04-07 11:42 | EDS_ITS ---
HPI History of Present Illness Chief Complaint: Lower Extremity Injury Informant: patient and family (granddaughter) Onset/Context/Timing Onset: Weeks (1-2) Context: Sudden Onset Timing: Continuous Quality of Pain: Aching Location: L knee Current Severity: Moderate Maximum Severity: Moderate Worsened by: walking, bending Relieved by: rest, topical arthritis cream, norco but out of them Associated Symptoms Associated Symptoms: Negative for Parasthesia, Weakness or Loss of Funtion Narrative Narrative: Patient states after dialysis session a couple weeks ago, she was lightheaded and fell to both of her knees, injuring the left 1 more so than the right and has been having pain ever since, with some mild swelling, and the feeling like it is giving out on her at times. This is the first time she has been seen for this. She takes Castle for chronic pain, she states she is out of it, it was helping temporarily when she was taking it for this pain/injury. She states she had a remote ACL repair on this knee. She is on clopidogrel but no anticoagulants. [facility] Medical History Anemia Anemia in chronic kidney disease Back pain Blister Cancer Cardiology follow-up encounter Celiac disease Chronic kidney disease, stage 3 Chronic kidney failure Chronic renal failure, stage 5 Cirrhosis COPD (chronic obstructive pulmonary disease) Diabetes Dialysis patient DVT (deep venous thrombosis) ESRD (end stage renal disease) Gastric reflux GERD (gastroesophageal reflux disease) History of echocardiogram (~01/22/20) History of edema History of irregular heartbeat History of renal disease History of stress test (~12/07/19) History of uterine cancer Hx of Krueger's palsy Hypertension Infection involving suture with abscess Insulin dependent diabetes mellitus [employer] Non-smoker Osteoporosis Pancytopenia Sleep apnea Wears dentures Wears glasses Home Medications ascorbic acid (vitamin C) 500 mg chewable tablet 1,000 mg PO DAILY supplement 02/20/15 [History Last Taken 09/09/19] cholecalciferol (vitamin D3) 25 mcg (1,000 unit) tablet 1,000 unit PO BID supplement 02/20/15 [History Last Taken 09/09/19] atorvastatin 10 mg tablet 10 mg PO QHS cholestrol 10/19/16 [History Last Taken 09/09/19] insulin aspart U-100 100 unit/mL (3 mL) subcutaneous pen (Novolog FlexPen U-100 Insulin aspart) 22 units subcut 0800,1700 blood sugar 05/29/18 [History Last Taken 09/09/19] insulin glargine 100 unit/mL (3 mL) subcutaneous pen (Lantus Solostar U-100 Insulin) 50 unit SQ BID blood sugar 05/29/18 [History Last Taken 09/09/19] tacrolimus 1 mg capsule, immediate-release (Prograf) 0.5 mg PO BID REJECTION 09/10/19 [History Last Taken 04/27/21] trazodone 150 mg tablet 200 mg PO QHS SLEEP 09/10/19 [History Last Taken 09/09/19] vitamin B complex 1 tablet PO DAILY SUPPLEMENT 09/10/19 [History Last Taken 09/09/19] carvedilol 25 mg tablet 12.5 mg PO BID heart 02/25/20 [History Last Taken 08/03/20] hydroxyzine HCl 25 mg tablet 25 mg PO BID PRN Itching 05/23/20 [History Last Taken Unknown] levothyroxine 25 mcg tablet 88 mcg PO DAILY thyroid 05/23/20 [History Last Taken 04/28/21] ropinirole 1 mg tablet 1 mg PO .QAM restless legs 05/23/20 [History Last Taken 06/16/20] torsemide 20 mg tablet 60 mg PO DAILY FLUID 05/23/20 [History Last Taken Unknown] ropinirole 2 mg tablet,extended release 24 hr 2 mg PO QHS restless legs 06/10/20 [History Last Taken Unknown] sevelamer carbonate 800 mg tablet (Renvela) 800 mg PO TID kidney disease 06/10/20 [History Last Taken Unknown] clopidogrel 75 mg tablet (Plavix) 75 mg PO DAILY anti platelet 04/28/21 [History Last Taken Unknown] nitroglycerin 0.4 mg sublingual tablet 0.4 mg sublingual Q5M PRN Cardiac/Chest Pain #30 tabs 04/29/21 [Rx Last Taken Unknown] pantoprazole 40 mg tablet,delayed release 40 mg PO BID #60 tabs 04/29/21 [Rx Last Taken Unknown] biotin 1 mg capsule 1 mg PO DAILY supplement 08/11/21 [History Last Taken Unknown] melatonin 3 mg tablet 10 mg PO QHS sleep 08/11/21 [History Last Taken Unknown] sertraline 50 mg tablet (Zoloft) 50 mg PO DAILY mood 08/11/21 [History Last Taken Unknown] insulin aspart U-100 100 unit/mL (3 mL) subcutaneous pen 26 unit subcut 1200 diabetes 10/22/21 [History Last Taken Unknown] albuterol sulfate 90 mcg/actuation aerosol inhaler 2 puff IH Q4H PRN PRN Sob &/Or Wheezing 30 days #8.6 grams 10/25/21 [Rx Last Taken Unknown] dicyclomine 20 mg tablet 20 mg PO TID PRN abdominal discomfort #20 tabs 10/25/21 [Rx Last Taken Unknown] hydrocortisone 100 mg/60 mL enema 300 mg (180 mL) LA QHS 21 days #3,780 mL 10/25/21 [Rx Last Taken Unknown] polyethylene glycol 3350 17 gram/dose oral powder (Miralax) 17 g PO DAILY #510 grams 10/25/21 [Rx Last Taken Unknown] diphenoxylate-atropine 2.5 mg-0.025 mg tablet (Lomotil) 1 tab PO TID PRN diarrhea #90 tabs 10/27/21 [Rx Last Taken Unknown] doxycycline hyclate 100 mg capsule 100 mg PO BID #14 caps 12/08/21 [Rx Last Taken Unknown] hydroxyzine pamoate 25 mg capsule (Vistaril) 25 mg PO TID PRN itching #20 caps 02/07/22 [Rx Last Taken Unknown] hydrocodone-acetaminophen 5-325mg 5mg-325mg 1 tab PO Q6H PRN PRN Pain 3 days #10 TABLETS 04/07/22 [Rx Last Taken Unknown] Allergy/AdvReac Type Severity Reaction Status Date / Time amlodipine [From Norvasc] Allergy Severe Hives Verified 04/07/22 11:29 ampicillin sodium Allergy Severe Hives Verified 04/07/22 11:29 [From Unasyn] buspirone HCl [From BuSpar] Allergy Severe Hives Verified 04/07/22 11:29 cefadroxil [From Duricef] Allergy Severe Hives Verified 04/07/22 11:29 lisinopril Allergy Severe Swelling Verified 04/07/22 11:29 naproxen Allergy Severe Hives Verified 04/07/22 11:29 niacin Allergy Severe Hives Verified 04/07/22 11:29 [From Niaspan Extended-Release] sulbactam sodium Allergy Severe Hives Verified 04/07/22 11:29 [From Unasyn] Sulfa (Sulfonamide Allergy Severe Hives Verified 04/07/22 11:29 Antibiotics) cephalexin [From Keflex] Allergy Hives Verified 04/07/22 11:29 omeprazole AdvReac Severe Other Verified 04/07/22 11:29 losartan AdvReac Swelling Verified 04/07/22 11:29 Family History Mother Diabetes Anemia Father Hypertension LUNG/RESPIRATORY DISEASE Surgical History History of appendectomy History of cholecystectomy History of coronary artery stent placement History of left knee surgery History of left salpingo-oophorectomy History of liver transplant History of radical hysterectomy History of ventral hernia repair S/P arteriovenous (AV) fistula creation (~06/16/20) Social History housing: apartment current occupational status: disabled Smoking Status: Never smoker substance use type: does not use ROS ROS ED Constitutional Constitutional ED: Denies chills or fever(s) Musculoskeletal Musculoskeletal: Reports extremity pain; Denies neck pain Integumentary Denies Abrasions, rash or wounds Neurologic Neurologic: Denies paresthesias or weakness EXAM Physical Exam Const Vital Signs: 04/07/22 11:29 Temperature 97 F L Temperature Source Temporal Pulse Rate 87 Respiratory Rate 14 Blood Pressure 157/52 H Blood Pressure Mean 87 Pulse Ox 96 Oxygen Delivery Method Room Air Positive well nourished and well developed General Appearance ED: well developed and NAD Neck full ROM and supple Back/Spine normal ROM and normal to inspection Extremity normal to inspection Extremity Narrative: Left knee: Extensor mechanism intact, no bony tenderness, excellent range of motion but limited at extremes of flexion. All ligaments stable and intact with short endpoints, mild discomfort with stressing them all but nothing focal. Negative Gerda, negative posterior drawer. Only area of tenderness is just distal to the patella, medial to the patellar ligament. Possibly a small effusion, obesity limits this part of the exam. No gross asymmetry compared with contralateral knee. Knee is not excessively warm compared with surrounding tissues, no erythema, no significant purpura or ecchymosis. Neuro oriented x3, no focal motor deficits and no sensory deficits noted Sensorium / Orientation: alert Psych mental status grossly normal and thought process normal Skin no wounds Rashes: no rashes MDM MDM MDM Narrative Medical decision making narrative: 4 view x-ray series of the left knee was obtained and are negative on my interpretation for any acute fracture or dislocation. There is chronic tricompartmental arthritis, as well as a small effusion noted. Radiology in agreement. My suspicion is that patient has a traumatic effusion that is not yet resolved. This may or may not have included hemarthrosis which can take longer to resolve. I recommend following up with orthopedics since it has been a couple weeks and she is still symptomatic, she is given an Aryan wrap here, I offered crutches which is the only assistive ambulatory device that we have and she declines, saying that she will be more dangerous on those. She has a walker at home. She has steps to go up, and she has a way to get into her apartment where she only has to go up 2 steps. I advised holding onto something to make sure she does not fall. We will give her a short prescription for Castle as well. Radiography Diagnostic Testing: Clinical Impression(s) from Imaging Studies Knee X-Ray 04/07/22 11:41 IMPRESSION: No acute fracture or dislocation identified in the left knee. Mild joint effusion with tricompartmental degenerative change. Electronically Signed: Rut Sommers MD at 12:44 EST Reading Location ID and State: [address] [place] [address] Tel , Service support , Discharge Plan Triage Chief Complaint: Lower Extremity Injury ED Provider: Charbel Thao Dx/Rx/DC Orders Clinical Impression: Injury of knee, left Instructions: ED Knee Effusion Prescriptions: New hydrocodone-acetaminophen [hydrocodone-acetaminophen] 1 TABLET tablet 1 tab PO Q6H PRN PRN (Reason: Pain) 3 Days Qty: 10 0RF No Action hydroxyzine HCl 25 mg tablet 25 mg PO BID PRN (Reason: Itching) ascorbic acid (vitamin C) 500 MG tablet,chewable 1,000 mg PO DAILY Label Comments: supplement cholecalciferol (vitamin D3) 1,000 UNIT tablet 1,000 unit PO BID Label Comments: bone health levothyroxine 25 mcg tablet 88 mcg PO DAILY atorvastatin 10 MG tablet 10 mg PO QHS insulin aspart U-100 [Novolog FlexPen U-100 Insulin] 100 UNITS/ML insulin pen 22 units SC 0800,1700 insulin glargine [Lantus Solostar U-100 Insulin] 100 UNIT/ML insulin pen 50 unit SQ BID Hold Instructions: until follow up with pcp your blood sugars have been low while in hospital ropinirole 1 mg tablet 1 mg PO .QAM trazodone 150 MG tablet 200 mg PO QHS tacrolimus [Prograf] 1 MG capsule 0.5 mg PO BID vitamin B complex 1 EACH tablet 1 tablet PO DAILY torsemide 20 mg tablet 60 mg PO DAILY carvedilol 25 MG tablet 12.5 mg PO BID sevelamer carbonate [Renvela] 800 MG tablet 800 mg PO TID ropinirole 2 MG tablet extended release 24 hr 2 mg PO QHS clopidogrel [Plavix] 75 mg Tablet 75 mg PO DAILY Hold Instructions: Resume on 10/27/21. nitroglycerin 0.4 mg Tablet, Sublingual 0.4 mg sublingual Q5M PRN (Reason: Cardiac/Chest Pain) Qty: 30 0RF pantoprazole 40 MG tablet,delayed release (DR/EC) 40 mg PO BID Qty: 60 2RF Rx Instructions: 40 mg twice daily for 8 weeks, that is 2 months sertraline [Zoloft] 50 MG tablet 50 mg PO DAILY Label Comments: depression biotin 1 mg Capsule 1 mg PO DAILY melatonin 3 mg Tablet 10 mg PO QHS insulin aspart U-100 100 unit/mL (3 mL) Insulin Pen 26 unit SUBCUT 1200 hydrocortisone 100 mg/60 mL enema 300 mg LA QHS 21 Days Qty: 3780 0RF polyethylene glycol 3350 [Miralax] 17 gram/dose powder 17 g PO DAILY Qty: 510 0RF dicyclomine 20 mg tablet 20 mg PO TID PRN (Reason: abdominal discomfort) Qty: 20 0RF albuterol sulfate 1 PUFF inhaler 2 puff IH Q4H PRN PRN (Reason: Sob &/Or Wheezing) 30 Days Qty: 8.6 0RF doxycycline hyclate 100 mg capsule 100 mg PO BID Qty: 14 0RF hydroxyzine pamoate [Vistaril] 25 mg capsule 25 mg PO TID PRN (Reason: itching) Qty: 20 0RF diphenoxylate-atropine [Lomotil] 2.5-0.025 mg tablet 1 tab PO TID PRN (Reason: diarrhea) Qty: 90 2RF Primary Care Provider: Velia Archuleta Referrals: Velia Archuleta MD [Primary Care Provider] - Owen Crump DO [Med Staff - Active Staff] - (call for appt) Disposition Disposition: Home, Self Care
[2022-04-07] MEDS: HYDROcodone Bitartrate/Apap 5/325 Tablet PO (11:54)
== END 2022-04-07 13:26 | disposition home or self-care (01) ==
LOC: ED 12:00
PROVIDERS: Emergency Provider Emergency Medicine; PCP Internal Medicine; Visit Provider Emergency Medicine
DX: S80.912A Unspecified superficial injury of left knee, initial encounter (principal); Z94.4 Liver transplant status; Z99.2 Dependence on renal dialysis; J44.9 Chronic obstructive pulmonary disease, unspecified; E11.22 Type 2 diabetes mellitus with diabetic chronic kidney disease; I12.0 Hypertensive chronic kidney disease with stage 5 chronic kidney disease or end stage renal disease; N18.6 End stage renal disease; Z79.4 Long term (current) use of insulin; W19.XXXA Unspecified fall, initial encounter; M17.10 Unilateral primary osteoarthritis, unspecified knee; G89.29 Other chronic pain; Z79.02 Long term (current) use of antithrombotics/antiplatelets; Z79.899 Other long term (current) drug therapy
CPT/HCPCS: 73564; 99282

== ENCOUNTER 2022-04-18 08:34 | Emergency (ER) | payer MEDICARE, MEDICAID, SELFPAY ==
[2022-04-18 08:35] VITALS: BP 131/56; PULSE 80; RESP 18; TEMP 36.8; O2SAT 99; BMI 45.7
--- NOTE | 2022-04-18 08:55 | EDS_ITS ---
HPI History of Present Illness Chief Complaint: Chest Other Detail of Chief Complaint: Left shoulder pain Informant: patient Onset/Context/Timing Onset: Today Activity at onset: sudden Timing: Continuous Quality: Positive for Aching Current Severity: Mild Maximum Severity: Mild Worsened By: Movement of Arm Relieved By: Nothing Narrative Narrative: 66-year-old female complex past medical history of end-stage renal disease, dialysis, anemia, COPD, diabetes, CAD with stents and diabetic. Patient also had a liver transplant. Yesterday she was at her normal dialysis today. About 2 hours in her forearm. She got aching in her left shoulder. She was given 1 nitroglycerin which gave her plus minus some relief. But the pain has been intermittent. She also was treated with Tylenol. They stopped her dialysis midway through her run. She denies any recent exertional chest pain. No fever or chills. Currently no dyspnea. Prior Similar Symptoms: Yes Recent Illness/Hospitalization: No CVD Risk Factors: Positive for Hypertension and Diabetes PE Risk Factors: Positive for Prior DVT or PE; Negative for Recent Travel/Surgery, Recent Immobilization, Cancer or OCP + Smoking + >/=35 PFSH PFSH Medical History Anemia Anemia in chronic kidney disease Back pain Blister Cancer Cardiology follow-up encounter Celiac disease Chronic kidney disease, stage 3 Chronic kidney failure Chronic renal failure, stage 5 Cirrhosis COPD (chronic obstructive pulmonary disease) Diabetes Dialysis patient DVT (deep venous thrombosis) ESRD (end stage renal disease) Gastric reflux GERD (gastroesophageal reflux disease) History of echocardiogram (~01/22/20) History of edema History of irregular heartbeat History of renal disease History of stress test (~12/07/19) History of uterine cancer Hx of Krueger's palsy Hypertension Infection involving suture with abscess Insulin dependent diabetes mellitus LIVER TRANSPLANT Non-smoker Osteoporosis Pancytopenia Sleep apnea Wears dentures Wears glasses Home Medications ascorbic acid (vitamin C) 500 mg chewable tablet 1,000 mg PO DAILY supplement 02/20/15 [History Last Taken 09/09/19] cholecalciferol (vitamin D3) 25 mcg (1,000 unit) tablet 1,000 unit PO BID supplement 02/20/15 [History Last Taken 09/09/19] atorvastatin 10 mg tablet 10 mg PO QHS cholestrol 10/19/16 [History Last Taken 09/09/19] insulin aspart U-100 100 unit/mL (3 mL) subcutaneous pen (Novolog FlexPen U-100 Insulin aspart) 22 units subcut 0800,1700 blood sugar 05/29/18 [History Last Taken 09/09/19] insulin glargine 100 unit/mL (3 mL) subcutaneous pen (Lantus Solostar U-100 Insulin) 50 unit SQ BID blood sugar 05/29/18 [History Last Taken 09/09/19] tacrolimus 1 mg capsule, immediate-release (Prograf) 0.5 mg PO BID REJECTION 09/10/19 [History Last Taken 04/27/21] trazodone 150 mg tablet 200 mg PO QHS SLEEP 09/10/19 [History Last Taken 09/09/19] vitamin B complex 1 tablet PO DAILY SUPPLEMENT 09/10/19 [History Last Taken 09/09/19] carvedilol 25 mg tablet 12.5 mg PO BID heart 02/25/20 [History Last Taken 08/03/20] hydroxyzine HCl 25 mg tablet 25 mg PO BID PRN Itching 05/23/20 [History Last Taken Unknown] levothyroxine 25 mcg tablet 88 mcg PO DAILY thyroid 05/23/20 [History Last Taken 04/28/21] ropinirole 1 mg tablet 1 mg PO .QAM restless legs 05/23/20 [History Last Taken 06/16/20] torsemide 20 mg tablet 60 mg PO DAILY FLUID 05/23/20 [History Last Taken Unknown] ropinirole 2 mg tablet,extended release 24 hr 2 mg PO QHS restless legs 06/10/20 [History Last Taken Unknown] sevelamer carbonate 800 mg tablet (Renvela) 800 mg PO TID kidney disease 06/10/20 [History Last Taken Unknown] clopidogrel 75 mg tablet (Plavix) 75 mg PO DAILY anti platelet 04/28/21 [History Last Taken Unknown] nitroglycerin 0.4 mg sublingual tablet 0.4 mg sublingual Q5M PRN Cardiac/Chest Pain #30 tabs 04/29/21 [Rx Last Taken Unknown] pantoprazole 40 mg tablet,delayed release 40 mg PO BID #60 tabs 04/29/21 [Rx Last Taken Unknown] biotin 1 mg capsule 1 mg PO DAILY supplement 08/11/21 [History Last Taken Unknown] melatonin 3 mg tablet 10 mg PO QHS sleep 08/11/21 [History Last Taken Unknown] sertraline 50 mg tablet (Zoloft) 50 mg PO DAILY mood 08/11/21 [History Last Taken Unknown] insulin aspart U-100 100 unit/mL (3 mL) subcutaneous pen 26 unit subcut 1200 diabetes 10/22/21 [History Last Taken Unknown] albuterol sulfate 90 mcg/actuation aerosol inhaler 2 puff IH Q4H PRN PRN Sob &/Or Wheezing 30 days #8.6 grams 10/25/21 [Rx Last Taken Unknown] dicyclomine 20 mg tablet 20 mg PO TID PRN abdominal discomfort #20 tabs 10/25/21 [Rx Last Taken Unknown] hydrocortisone 100 mg/60 mL enema 300 mg (180 mL) MO QHS 21 days #3,780 mL 10/25/21 [Rx Last Taken Unknown] polyethylene glycol 3350 17 gram/dose oral powder (Miralax) 17 g PO DAILY #510 grams 10/25/21 [Rx Last Taken Unknown] diphenoxylate-atropine 2.5 mg-0.025 mg tablet (Lomotil) 1 tab PO TID PRN diarrhea #90 tabs 10/27/21 [Rx Last Taken Unknown] doxycycline hyclate 100 mg capsule 100 mg PO BID #14 caps 12/08/21 [Rx Last Taken Unknown] hydroxyzine pamoate 25 mg capsule (Vistaril) 25 mg PO TID PRN itching #20 caps 02/07/22 [Rx Last Taken Unknown] hydrocodone-acetaminophen 5-325mg 5mg-325mg 1 tab PO Q6H PRN PRN Pain 3 days #10 TABLETS 04/07/22 [Rx Last Taken Unknown] Allergy/AdvReac Type Severity Reaction Status Date / Time amlodipine [From Norvasc] Allergy Severe Hives Verified 04/18/22 08:35 ampicillin sodium Allergy Severe Hives Verified 04/18/22 08:35 [From Unasyn] buspirone HCl [From BuSpar] Allergy Severe Hives Verified 04/18/22 08:35 cefadroxil [From Duricef] Allergy Severe Hives Verified 04/18/22 08:35 lisinopril Allergy Severe Swelling Verified 04/18/22 08:35 naproxen Allergy Severe Hives Verified 04/18/22 08:35 niacin Allergy Severe Hives Verified 04/18/22 08:35 [From Niaspan Extended-Release] sulbactam sodium Allergy Severe Hives Verified 04/18/22 08:35 [From Unasyn] Sulfa (Sulfonamide Allergy Severe Hives Verified 04/18/22 08:35 Antibiotics) cephalexin [From Keflex] Allergy Hives Verified 04/18/22 08:35 omeprazole AdvReac Severe Other Verified 04/18/22 08:35 losartan AdvReac Swelling Verified 04/18/22 08:35 Family History Mother Diabetes Anemia Father Hypertension LUNG/RESPIRATORY DISEASE Surgical History History of appendectomy History of cholecystectomy History of coronary artery stent placement History of left knee surgery History of left salpingo-oophorectomy History of liver transplant History of radical hysterectomy History of ventral hernia repair S/P arteriovenous (AV) fistula creation (~06/16/20) Social History housing: apartment current occupational status: disabled Smoking Status: Never smoker substance use type: does not use ROS ROS ED ROS Narrative Denies recent illness. Review of Systems ROS Unobtainable: Denies due to encephalopathy Constitutional Constitutional ED: Denies chills Eyes Eyes: Reports none ENT ENT ED: Denies ear pain Cardiovascular Cardiovascular: Reports as per HPI and other Details: Really not chest pain its aching in her left shoulder. Does not sound cardiac. Is not exertional. Respiratory/Chest Respiratory/Chest: Denies cough Gastrointestinal Gastrointestinal: Denies abdominal pain or vomiting Genitourinary Genitourinary ED: Denies dysuria Musculoskeletal Musculoskeletal: Denies arthralgias Integumentary Denies abscess Neurologic Neurologic: Denies headache(s) Psychiatric Psychiatric: Denies anxiety Endocrine Endocrinology: Denies cold intolerance Hematologic/Lymphatic Hematologic/Lymphatic: Denies easy bleeding Allergic/Immunologic Allergic/Immunologic ED: Denies mouth swelling or tongue swelling EXAM Physical Exam Narrative Exam Narrative: 66-year-old female vital signs stable afebrile. Pulse ox 99% on room air no hyp oxia. She is in no distress. H EENT exam unremarkable. Neck nontender. Lungs clear to auscultation bilaterally. Heart regular rhythm rate about 80 no murmur. Chest wall nontender. Abdomen soft nontender. Moving all 4 extremities. Dialysis line in her left upper arm. Left shoulder tender to palpation. There is no redness or warmth. No swelling or deformity. Appears to be soft tissue tenderness. Neurologically she is awake and alert. Const Vital Signs: 04/18/22 08:35 04/18/22 08:39 04/18/22 09:08 Temperature 98.2 F Temperature Source Oral Pulse Rate 80 Respiratory Rate 18 Respiratory Effort Normal Non-Labored Blood Pressure 131/56 H Blood Pressure Mean 81 Pulse Ox 99 Oxygen Delivery Method Room Air Room Air Positive well nourished, well developed and obese; Negative for cachectic, contractures or unkempt General Appearance ED: well developed and NAD; Negative for unkempt, cachectic, contractures or pallor Nutritional Appearance: obese; Negative for cachectic HEENT Reports moist mucous membranes normocephalic and atraumatic; Negative for trauma or tenderness Eyes PERRL and EOMs intact bilaterally General Eye ED: Negative for pale conjunctiva or scleral icterus Neck no lymphadenopathy, supple and no JVD General: Negative for tenderness Chest Wall inspection of chest normal and palpation of chest normal Resp normal respiratory effort Effort and Inspection: Negative for respiratory distress Auscultation: Negative for rales, rhonchi or wheezes Cardio regular rate, regular rhythm, S1 normal heart sound, S2 normal heart sound and n o murmurs Peripheral Pulses: pulses 2+ throughout GI normal to inspection, nondistended, normoactive bowel sounds, soft to palpation, non-tender, non-distended and no masses Auscultation: Negative for hyperactive bowel sounds Palpation: Negative for splenomegaly Back/Spine no CVA tenderness and no thoracic nor lumbar tenderness General Back: Negative for CVA tenderness Cervical Spine: Negative for cervical spine tenderness Extremity normal to inspection Extremity Narrative: Left shoulder normal appearance. No redness or warmth. No swelling. No deformity. Tender to palpation. Normal range of motion. Normal radial pulse. Fistula in the left upper arm. General Extremety ED: Yes tenderness; Negative for edema or pulses abnormal General Extremity: Negative for edema or pulses abnormal Neuro oriented x3 Sensorium / Orientation: awake, alert, oriented to person, oriented to place and oriented to time; Negative for confused, lethargic or stuporous Motor Exam: strength 5/5 throughout Psych mental status grossly normal Appearance: Negative for unkempt Attitude: No agitated Mood & Affect: Negative for depressed, anxious or tearful Skin no rashes or lesions noted and no wounds General Skin Exam: Negative for jaundice or pallor Rashes: No rashes noted Trauma: Negative for abrasion, laceration or puncture Heart Score History: Slightly/Non-Suspicious ECG: Normal Age: >45 - <65 years Score: 1 MDM MDM MDM Narrative Medical decision making narrative: 66-year-old with shoulder pain this really is not cardiac chest pain. It is reproducible. I suspect this is musculoskeletal. She is being put through a cardiac work-up. I did look over the patient's prior labs and evaluations. Repeat exam is doing well at 11:10 AM. She and I discussed all of her test results and I feel this is musculoskeletal shoulder pain and not cardiac in etiology. She is comfortable being discharged home. She is Tylenol for pain. Lab Data Attestation: I reviewed the patient's lab results. Lab results narrative: CBC shows a white count of 5.3. H&H 10.2 33.6. Platelets 112. Electrolytes gap of 8 BUN 21 creatinine 3.98. Troponin normal at 14. Chest x-ray negative. Labs are unremarkable from prior labs. These are her baseline labs. Labs: Laboratory Results - last 24 hr 04/18/22 04/18/22 08:23 08:23 WBC 4.3 L RBC 3.28 L Hgb 10.2 L Hct 33.6 L MCV 102.4 H MCH 31.1 MCHC 30.4 L RDW Std Deviation 69.3 H RDW Coeff of Tami 18.7 H Plt Count 112 L MPV 11.2 Immature Gran % (Auto) 1.800 H Neut % (Auto) 73.7 H Lymph % (Auto) 13.2 L [place] % (Auto) 8.3 Eos % (Auto) 2.8 Baso % (Auto) 0.2 Absolute Neuts (auto) 3.2 Absolute Lymphs (auto) 0.57 L Nucleated RBC % 0 Differential Comment SCANNED Diff Path Review May foll Anisocytosis RARE Sodium 137 Potassium 4.0 Chloride 96 L Carbon Dioxide 33.0 H Anion Gap 8 BUN 21 H Creatinine 3.98 H Estim Creat Clear Calc 11.29 Est GFR (MDRD) Af Amer 15 L Est GFR (MDRD) Non-Af 12 L BUN/Creatinine Ratio 5.3 L Glucose 97 Calcium 9.3 Troponin I High Sens 14 Radiography Chest X-Ray - ED: 1 View, Read by ED Physician, Read by Radiologist, Heart, Lungs, Mediastinum, Bony Structures, No Acute Disease and Chronic Changes Diagnostic Testing: Clinical Impression(s) from Imaging Studies Chest X-Ray 04/18/22 09:00 IMPRESSION: No acute abnormality is seen. Electronically Signed: Naren Boston MD at 9:18 EST , Chest x-ray, portable, single view interpreted by myself and the radiologist as no acute abnormality. Normal cardiac silhouette. No pulmonary edema. No infiltrates. Acute Rhythm Strip Rhythm Strip: Sinus Rhythm Rate: 75 Ectopy: None EKG Initial EKG: Attestation: I personally reviewed and interpreted this EKG as follows: Interpretation: Sinus Rhythm and No Acute Injury Pattern Comments: Normal sinus rhythm rate of 75. Left bundle branch block. No acute signs of MD or ischemia. Discharge Plan Triage Chief Complaint: Chest Other ED Provider: Favian Murillo Dx/Rx/DC Orders Clinical Impression: Atypical chest pain, Acute shoulder pain, History of end stage renal disease, History of diabetes mellitus, Hx of heart artery stent, History of liver transplant Instructions: ED Arthralgia Prescriptions: No Action hydroxyzine HCl 25 mg tablet 25 mg PO BID PRN (Reason: Itching) ascorbic acid (vitamin C) 500 MG tablet,chewable 1,000 mg PO DAILY Label Comments: supplement cholecalciferol (vitamin D3) 1,000 UNIT tablet 1,000 unit PO BID Label Comments: bone health levothyroxine 25 mcg tablet 88 mcg PO DAILY atorvastatin 10 MG tablet 10 mg PO QHS insulin aspart U-100 [Novolog FlexPen U-100 Insulin] 100 UNITS/ML insulin pen 22 units SC 0800,1700 insulin glargine [Lantus Solostar U-100 Insulin] 100 UNIT/ML insulin pen 50 unit SQ BID Hold Instructions: until follow up with pcp your blood sugars have been low while in hospital ropinirole 1 mg tablet 1 mg PO .QAM trazodone 150 MG tablet 200 mg PO QHS tacrolimus [Prograf] 1 MG capsule 0.5 mg PO BID vitamin B complex 1 EACH tablet 1 tablet PO DAILY torsemide 20 mg tablet 60 mg PO DAILY carvedilol 25 MG tablet 12.5 mg PO BID sevelamer carbonate [Renvela] 800 MG tablet 800 mg PO TID ropinirole 2 MG tablet extended release 24 hr 2 mg PO QHS clopidogrel [Plavix] 75 mg Tablet 75 mg PO DAILY Hold Instructions: Resume on 10/27/21. nitroglycerin 0.4 mg Tablet, Sublingual 0.4 mg sublingual Q5M PRN (Reason: Cardiac/Chest Pain) Qty: 30 0RF pantoprazole 40 MG tablet,delayed release (DR/EC) 40 mg PO BID Qty: 60 2RF Rx Instructions: 40 mg twice daily for 8 weeks, that is 2 months sertraline [Zoloft] 50 MG tablet 50 mg PO DAILY Label Comments: depression biotin 1 mg Capsule 1 mg PO DAILY melatonin 3 mg Tablet 10 mg PO QHS insulin aspart U-100 100 unit/mL (3 mL) Insulin Pen 26 unit SUBCUT 1200 hydrocortisone 100 mg/60 mL enema 300 mg MO QHS 21 Days Qty: 3780 0RF polyethylene glycol 3350 [Miralax] 17 gram/dose powder 17 g PO DAILY Qty: 510 0RF dicyclomine 20 mg tablet 20 mg PO TID PRN (Reason: abdominal discomfort) Qty: 20 0RF albuterol sulfate 1 PUFF inhaler 2 puff IH Q4H PRN PRN (Reason: Sob &/Or Wheezing) 30 Days Qty: 8.6 0RF doxycycline hyclate 100 mg capsule 100 mg PO BID Qty: 14 0RF hydroxyzine pamoate [Vistaril] 25 mg capsule 25 mg PO TID PRN (Reason: itching) Qty: 20 0RF hydrocodone-acetaminophen [hydrocodone-acetaminophen] 1 TABLET tablet 1 tab PO Q6H PRN PRN (Reason: Pain) 3 Days Qty: 10 0RF diphenoxylate-atropine [Lomotil] 2.5-0.025 mg tablet 1 tab PO TID PRN (Reason: diarrhea) Qty: 90 2RF Primary Care Provider: Velia Archuleta Referrals: Velia Archuleta MD [Primary Care Provider] - 1 Week if not improving Activity Restrictions/Additional Instructions: Ice and heat to your left shoulder. Tylenol for pain. Follow-up if not improving. Your labs were your normal baseline. No signs of heart attack or other significant acute abnormalities. The pain appears to be musculoskeletal in your left shoulder. Disposition Disposition: Home, Self Care
--- NOTE | 2022-04-18 09:00 | RAD_ITS ---
STUDY: X-RAY CHEST REASON FOR EXAM: Female, 66 years old. Chest pain TECHNIQUE: Single AP portable view of the chest. COMPARISON: Comparison is made with prior study dated 12/05/2021. FINDINGS: EKG electrodes are seen. Calcified granuloma in the right lower lobe. No acute abnormalities present. There is no demonstrated pleural abnormality. Normal size heart. Normal mediastinum and alvina. Normal visualized pulmonary arteries. Normal visualized aortic arch and descending thoracic aorta. There is a dextroscoliosis of the thoracic spine. Normal visualized ribs, clavicles, and shoulders. There is no demonstrated abnormality of the visualized soft tissue structures of the upper abdomen. RAD/Chest 1 View (Portable) IMPRESSION: No acute abnormality is seen. Electronically Signed: Naren Boston MD at 9:18 EST ,
[2022-04-18 09:08] LABS: Absolute Lymphocyte Count 0.57 X10^3/uL (0.83-4.51); Absolute Neutrophil Count 3.2 X10^3/uL (2.0-7.7); Basophil# 0.01 X10^3/uL; Basophil% 0.2 % (0-1); Eosinophil# 0.12 X10^3/uL; Eosinophils% 2.8 % (0-5); Hematocrit 33.6 % (37-47); Hemoglobin 10.2 g/dL (12.0-15.0); Lymphocyte # 0.57 X10^3/ul (0.83-4.51); Lymphocyte % 13.2 % (19-41); Mean Corp Hgb Conc 30.4 g/dL (32-36); Mean Corpuscular Hgb 31.1 pg (27.0-32.0); Mean Corpuscular Volume 102.4 fL (81-99); Mean Platelet Vol. 11.2 fl (6.2-12.0); Monocyte# 0.36 X10^3/uL; Monocyte% 8.3 % (0-10); NRBC Flagged by Analyzer 0 % (0-5); Neutrophil # 3.19 X10^3/uL (2.7-7.7); Neutrophil % 73.7 % (47-70); POSITIVE DIFFERENTIAL YES; POSITIVE MORPHOLOGY YES; Platelet Count 112 K/mm3 (150-450); RBC Distribution Width CV 18.7 % (11.6-14.6); RBC Distribution Width SD 69.3 fl (35.1-43.9); Red Blood Count 3.28 M/mm3 (4.2-5.4); White Blood Count 4.3 K/mm3 (4.4-11.0)
[2022-04-18 09:11] LABS: Differential Indicated SCAN CRITERIA MET
[2022-04-18 09:25] LABS: Anion Gap 8 (5-15); BUN 21 mg/dL (7-18); BUN/Creat Ratio 5.3 RATIO (10-20); Calcium,Total 9.3 mg/dL (8.5-10.1); Chloride 96 mmol/L (98-107); Creatinine, Serum 3.98 mg/dL (0.55-1.02); EST Glomerular Filtration Rate 12 mL/min (>60); Est Glom Filt Rate - Afr Amer 15 mL/min (>60); Estimated Creatinine Clearance 11.29 ml/min; Glucose 97 mg/dL (74-106); Sodium Level 137 mmol/L (136-145); Troponin-I HS (w/2H Reflex) 14 pg/mL (3.0-54.0)
[2022-04-18 09:29] LABS: Anisocytosis RARE; Differential Comment SCANNED
--- NOTE | 2022-04-18 10:58 | ED.RN ---
Dialysis cath deaccessed
[2022-04-18 11:01] LABS: Reflex Troponin-HS? (from REC) Y
[2022-04-18 11:24] LABS: Troponin-I HS 13 pg/mL (3.0-54.0)
[2022-04-20 09:36] LABS: Pathologist Review Reviewed
== END 2022-04-18 11:28 | disposition home or self-care (01) ==
PROVIDERS: Emergency Provider Emergency Medicine; PCP Internal Medicine; Visit Provider Emergency Medicine
DX: R07.89 Other chest pain (principal); Z94.4 Liver transplant status; N18.6 End stage renal disease; M25.512 Pain in left shoulder; I25.10 Atherosclerotic heart disease of native coronary artery without angina pectoris; E66.9 Obesity, unspecified; Z86.718 Personal history of other venous thrombosis and embolism; Z95.5 Presence of coronary angioplasty implant and graft
CPT/HCPCS: 71045; 80048; 84484; 85025; 93005; 99285; A4216

== ENCOUNTER 2022-05-08 10:04 | Emergency (ER) | payer MEDICARE, MEDICAID, SELFPAY ==
[2022-05-08 10:07] VITALS: BP 154/60; PULSE 69; RESP 18; TEMP 36.3; O2SAT 100
--- NOTE | 2022-05-08 10:17 | EKG12_ITS ---
Test Reason : ABN LABS Blood Pressure : / mmHG Vent. Rate : 066 BPM Atrial Rate : 066 BPM P-R Int : 220 ms QRS Dur : 140 ms QT Int : 442 ms P-R-T Axes : 045 -41 035 degrees QTc Int : 463 ms Sinus rhythm with 1st degree A-V block Left axis deviation Left bundle branch block Abnormal ECG Confirmed by ESTUARDO FOFANA, DAVE ([id number]), pictures editor STEPHANIE PHAM ([id number]) on 05/10/2022 9:04:10 AM Referred By: Confirmed By:DAVE MARTE MD
--- NOTE | 2022-05-08 10:20 | EX.ED.DYSGE1 ---
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 Today is Saturday, she had some routine labs this morning that showed that her potassium was 6.6 therefore she was sent to the ED for further evaluation. She states she feels a little nauseated, but she thinks may be because of her anxiety and nerves, and she otherwise has no symptoms acutely. [facility] Medical History Anemia Anemia in chronic kidney disease Back pain Blister Cancer Cardiology follow-up encounter Celiac disease Chronic kidney disease, stage 3 Chronic kidney failure Chronic renal failure, stage 5 Cirrhosis COPD (chronic obstructive pulmonary disease) Diabetes Dialysis patient DVT (deep venous thrombosis) ESRD (end stage renal disease) Gastric reflux GERD (gastroesophageal reflux disease) History of echocardiogram (~01/22/20) History of edema History of irregular heartbeat History of renal disease History of stress test (~12/07/19) History of uterine cancer Hx of Krueger's palsy Hypertension Infection involving suture with abscess Insulin dependent diabetes mellitus [employer] Non-smoker Osteoporosis Pancytopenia Sleep apnea Wears dentures Wears glasses Home Medications ascorbic acid (vitamin C) 500 mg chewable tablet 1,000 mg PO DAILY supplement 02/20/15 [History Last Taken 09/09/19] cholecalciferol (vitamin D3) 25 mcg (1,000 unit) tablet 1,000 unit PO BID supplement 02/20/15 [History Last Taken 09/09/19] atorvastatin 10 mg tablet 10 mg PO QHS cholestrol 10/19/16 [History Last Taken 09/09/19] insulin aspart U-100 100 unit/mL (3 mL) subcutaneous pen (Novolog FlexPen U-100 Insulin aspart) 22 units subcut 0800,1700 blood sugar 05/29/18 [History Last Taken 09/09/19] insulin glargine 100 unit/mL (3 mL) subcutaneous pen (Lantus Solostar U-100 Insulin) 50 unit SQ BID blood sugar 05/29/18 [History Last Taken 09/09/19] tacrolimus 1 mg capsule, immediate-release (Prograf) 0.5 mg PO BID REJECTION 09/10/19 [History Last Taken 04/27/21] trazodone 150 mg tablet 200 mg PO QHS SLEEP 09/10/19 [History Last Taken 09/09/19] vitamin B complex 1 tablet PO DAILY SUPPLEMENT 09/10/19 [History Last Taken 09/09/19] carvedilol 25 mg tablet 12.5 mg PO BID heart 02/25/20 [History Last Taken 08/03/20] hydroxyzine HCl 25 mg tablet 25 mg PO BID PRN Itching 05/23/20 [History Last Taken Unknown] levothyroxine 25 mcg tablet 88 mcg PO DAILY thyroid 05/23/20 [History Last Taken 04/28/21] ropinirole 1 mg tablet 1 mg PO .QAM restless legs 05/23/20 [History Last Taken 06/16/20] torsemide 20 mg tablet 60 mg PO DAILY FLUID 05/23/20 [History Last Taken Unknown] ropinirole 2 mg tablet,extended release 24 hr 2 mg PO QHS restless legs 06/10/20 [History Last Taken Unknown] sevelamer carbonate 800 mg tablet (Renvela) 800 mg PO TID kidney disease 06/10/20 [History Last Taken Unknown] clopidogrel 75 mg tablet (Plavix) 75 mg PO DAILY anti platelet 04/28/21 [History Last Taken Unknown] nitroglycerin 0.4 mg sublingual tablet 0.4 mg sublingual Q5M PRN Cardiac/Chest Pain #30 tabs 04/29/21 [Rx Last Taken Unknown] pantoprazole 40 mg tablet,delayed release 40 mg PO BID #60 tabs 04/29/21 [Rx Last Taken Unknown] biotin 1 mg capsule 1 mg PO DAILY supplement 08/11/21 [History Last Taken Unknown] melatonin 3 mg tablet 10 mg PO QHS sleep 08/11/21 [History Last Taken Unknown] sertraline 50 mg tablet (Zoloft) 50 mg PO DAILY mood 08/11/21 [History Last Taken Unknown] insulin aspart U-100 100 unit/mL (3 mL) subcutaneous pen 26 unit subcut 1200 diabetes 10/22/21 [History Last Taken Unknown] albuterol sulfate 90 mcg/actuation aerosol inhaler 2 puff IH Q4H PRN PRN Sob &/Or Wheezing 30 days #8.6 grams 10/25/21 [Rx Last Taken Unknown] dicyclomine 20 mg tablet 20 mg PO TID PRN abdominal discomfort #20 tabs 10/25/21 [Rx Last Taken Unknown] hydrocortisone 100 mg/60 mL enema 300 mg (180 mL) MA QHS 21 days #3,780 mL 10/25/21 [Rx Last Taken Unknown] polyethylene glycol 3350 17 gram/dose oral powder (Miralax) 17 g PO DAILY #510 grams 10/25/21 [Rx Last Taken Unknown] diphenoxylate-atropine 2.5 mg-0.025 mg tablet (Lomotil) 1 tab PO TID PRN diarrhea #90 tabs 10/27/21 [Rx Last Taken Unknown] doxycycline hyclate 100 mg capsule 100 mg PO BID #14 caps 12/08/21 [Rx Last Taken Unknown] hydroxyzine pamoate 25 mg capsule (Vistaril) 25 mg PO TID PRN itching #20 caps 02/07/22 [Rx Last Taken Unknown] hydrocodone-acetaminophen 5-325mg 5mg-325mg 1 tab PO Q6H PRN PRN Pain 3 days #10 TABLETS 04/07/22 [Rx Last Taken Unknown] Allergy/AdvReac Type Severity Reaction Status Date / Time amlodipine [From Norvasc] Allergy Severe Hives Verified 05/08/22 10:07 ampicillin sodium Allergy Severe Hives Verified 05/08/22 10:07 [From Unasyn] buspirone HCl [From BuSpar] Allergy Severe Hives Verified 05/08/22 10:07 cefadroxil [From Duricef] Allergy Severe Hives Verified 05/08/22 10:07 lisinopril Allergy Severe Swelling Verified 05/08/22 10:07 naproxen Allergy Severe Hives Verified 05/08/22 10:07 niacin Allergy Severe Hives Verified 05/08/22 10:07 [From Niaspan Extended-Release] sulbactam sodium Allergy Severe Hives Verified 05/08/22 10:07 [From Unasyn] Sulfa (Sulfonamide Allergy Severe Hives Verified 05/08/22 10:07 Antibiotics) cephalexin [From Keflex] Allergy Vomiting Verified 05/08/22 10:07 omeprazole AdvReac Severe Other Verified 05/08/22 10:07 losartan AdvReac Swelling Verified 05/08/22 10:07 Family History Mother Diabetes Anemia Father Hypertension LUNG/RESPIRATORY DISEASE Surgical History History of appendectomy History of cholecystectomy History of coronary artery stent placement History of left knee surgery History of left salpingo-oophorectomy History of liver transplant History of radical hysterectomy History of ventral hernia repair S/P arteriovenous (AV) fistula creation (~06/16/20) Social History housing: apartment current occupational status: disabled Smoking Status: Never smoker substance use type: does not use ROS ROS ED Constitutional Constitutional ED: Denies chills or fever(s) Eyes Eyes: Denies change in vision or diplopia ENT ENT ED: Denies rhinorrhea or sore throat Cardiovascular Cardiovascular: Denies chest pain or palpitations Respiratory/Chest Respiratory/Chest: Denies cough or dyspnea Gastrointestinal Gastrointestinal: Reports nausea; Denies abdominal pain, diarrhea or vomiting Genitourinary Genitourinary ED: Denies dysuria or hematuria Musculoskeletal Musculoskeletal: Denies back pain or neck pain Integumentary Denies abscess or rash Neurologic Neurologic: Denies headache(s), paresthesias or weakness Psychiatric Psychiatric: Reports anxiety; Denies suicidal thoughts EXAM Physical Exam Const Vital Signs: 05/08/22 10:07 05/08/22 10:47 05/08/22 10:47 Temperature 97.4 F L Temperature Source Temporal Pulse Rate 69 68 Respiratory Rate 18 14 Respiratory Effort Normal Non-Labored Respiratory Pattern Normal Blood Pressure 154/60 H Blood Pressure Mean 91 Pulse Ox 100 Oxygen Delivery Method Room Air Positive well nourished, well developed and obese General Appearance ED: well developed and NAD Nutritional Appearance: obese HEENT Reports moist mucous membranes normocephalic and atraumatic Eyes PERRL and EOMs intact bilaterally Neck full ROM and supple Resp normal respiratory effort and clear to auscultation bilaterally Cardio regular rate, regular rhythm and no murmurs Rate: Negative for tachycardic GI non-tender and non-distended Auscultation: normoactive bowel sounds Palpation: soft Back/Spine no CVA tenderness General Back: other FROM Extremity normal to inspection Extremity Narrative: Good thrill AV fistula General Extremety ED: Yes edema; Negative for pulses abnormal or tenderness General Extremity: edema bilateral lower extremity Details: trace; Negative for pulses abnormal Neuro oriented x3, CN's II-XII intact bilaterally and no sensory deficits noted Sensorium / Orientation: awake and alert Motor Exam: strength 5/5 throughout Psych mental status grossly normal Mood & Affect: anxious Skin no rashes or lesions noted and no wounds MDM MDM MDM Narrative Medical decision making narrative: Patient potassium 6.5 on our results. Electrolytes are otherwise within normal limits. She was given Kayexalate while I paged Dr. Strickland. He spoke with the dialysis center and was able to determine that they do have the capacity today to run a partial session on her, so she will be discharged and advised to go directly there. She will then do her normally scheduled dialysis session tomorrow. Lab Data Attestation: I reviewed the patient's lab results. Labs: Laboratory Results - last 24 hr 05/08/22 10:38 Sodium 134 L Potassium 6.5 H* Chloride 97 L Carbon Dioxide 29.0 Anion Gap 8 BUN 30 H Creatinine 6.26 H Estim Creat Clear Calc 8.17 Est GFR (MDRD) Af Amer 9 L Est GFR (MDRD) Non-Af 7 L BUN/Creatinine Ratio 4.8 L Glucose 153 H Calcium 9.4 Rhythm Strip Rhythm Strip: Sinus Rhythm Rate: 65 Ectopy: None EKG Initial EKG: Attestation: I personally reviewed and interpreted this EKG as follows: Interpretation: Sinus Rhythm, No Acute Injury Pattern, LBBB and AV Block (1st deg) Comments: mild T wave peaking Prior EKG tracings: available for review Prior: Unchanged (including T waves) Discharge Plan Triage Chief Complaint: Abn Labs ED Provider: Charbel Thao Dx/Rx/DC Orders Clinical Impression: Hyperkalemia, diminished renal excretion, ESRD (end stage renal disease) Instructions: ED Hyperkalemia Prescriptions: No Action hydroxyzine HCl 25 mg tablet 25 mg PO BID PRN (Reason: Itching) ascorbic acid (vitamin C) 500 MG tablet,chewable 1,000 mg PO DAILY Label Comments: supplement cholecalciferol (vitamin D3) 1,000 UNIT tablet 1,000 unit PO BID Label Comments: bone health levothyroxine 25 mcg tablet 88 mcg PO DAILY atorvastatin 10 MG tablet 10 mg PO QHS insulin aspart U-100 [Novolog FlexPen U-100 Insulin] 100 UNITS/ML insulin pen 22 units SC 0800,1700 insulin glargine [Lantus Solostar U-100 Insulin] 100 UNIT/ML insulin pen 50 unit SQ BID Hold Instructions: until follow up with pcp your blood sugars have been low while in hospital ropinirole 1 mg tablet 1 mg PO .QAM trazodone 150 MG tablet 200 mg PO QHS tacrolimus [Prograf] 1 MG capsule 0.5 mg PO BID vitamin B complex 1 EACH tablet 1 tablet PO DAILY torsemide 20 mg tablet 60 mg PO DAILY carvedilol 25 MG tablet 12.5 mg PO BID sevelamer carbonate [Renvela] 800 MG tablet 800 mg PO TID ropinirole 2 MG tablet extended release 24 hr 2 mg PO QHS clopidogrel [Plavix] 75 mg Tablet 75 mg PO DAILY Hold Instructions: Resume on 10/27/21. nitroglycerin 0.4 mg Tablet, Sublingual 0.4 mg sublingual Q5M PRN (Reason: Cardiac/Chest Pain) Qty: 30 0RF pantoprazole 40 MG tablet,delayed release (DR/EC) 40 mg PO BID Qty: 60 2RF Rx Instructions: 40 mg twice daily for 8 weeks, that is 2 months sertraline [Zoloft] 50 MG tablet 50 mg PO DAILY Label Comments: depression biotin 1 mg Capsule 1 mg PO DAILY melatonin 3 mg Tablet 10 mg PO QHS insulin aspart U-100 100 unit/mL (3 mL) Insulin Pen 26 unit SUBCUT 1200 hydrocortisone 100 mg/60 mL enema 300 mg MA QHS 21 Days Qty: 3780 0RF polyethylene glycol 3350 [Miralax] 17 gram/dose powder 17 g PO DAILY Qty: 510 0RF dicyclomine 20 mg tablet 20 mg PO TID PRN (Reason: abdominal discomfort) Qty: 20 0RF albuterol sulfate 1 PUFF inhaler 2 puff IH Q4H PRN PRN (Reason: Sob &/Or Wheezing) 30 Days Qty: 8.6 0RF doxycycline hyclate 100 mg capsule 100 mg PO BID Qty: 14 0RF hydroxyzine pamoate [Vistaril] 25 mg capsule 25 mg PO TID PRN (Reason: itching) Qty: 20 0RF hydrocodone-acetaminophen [hydrocodone-acetaminophen] 1 TABLET tablet 1 tab PO Q6H PRN PRN (Reason: Pain) 3 Days Qty: 10 0RF diphenoxylate-atropine [Lomotil] 2.5-0.025 mg tablet 1 tab PO TID PRN (Reason: diarrhea) Qty: 90 2RF Primary Care Provider: Velia Archuleta Referrals: Velia Archuleta MD [Primary Care Provider] - Activity Restrictions/Additional Instructions: Go directly to dialysis, they are going to run you for a partial session, then you will also go to your regularly scheduled dialysis session tomorrow. Disposition Disposition: Home, Self Care
[2022-05-08] MEDS: Ondansetron 4 MG/2 ML Vial IV (10:43)
[2022-05-08 10:47] VITALS: PULSE 68; RESP 14; BMI 40.7
[2022-05-08 11:04] LABS: Anion Gap 8 (5-15); BUN 30 mg/dL (7-18); BUN/Creat Ratio 4.8 RATIO (10-20); Calcium,Total 9.4 mg/dL (8.5-10.1); Chloride 97 mmol/L (98-107); Creatinine, Serum 6.26 mg/dL (0.55-1.02); EST Glomerular Filtration Rate 7 mL/min (>60); Est Glom Filt Rate - Afr Amer 9 mL/min (>60); Estimated Creatinine Clearance 8.17 ml/min; Glucose 153 mg/dL (74-106); Potassium 6.5 mmol/L (3.5-5.1); Sodium Level 134 mmol/L (136-145)
[2022-05-08 12:31] VITALS: BP 129/52; PULSE 71; RESP 16; O2SAT 100
== END 2022-05-08 12:32 | disposition home or self-care (01) ==
PROVIDERS: Emergency Provider Emergency Medicine; PCP Internal Medicine; Visit Provider Emergency Medicine
DX: E87.5 Hyperkalemia (principal); Z99.2 Dependence on renal dialysis; N18.6 End stage renal disease; G47.30 Sleep apnea, unspecified; E66.9 Obesity, unspecified; Z86.711 Personal history of pulmonary embolism; Z95.5 Presence of coronary angioplasty implant and graft
CPT/HCPCS: 80048; 93005; 96374; 99284; A4216; J2405

== ENCOUNTER 2022-09-08 18:39 | Emergency (ER) | payer MEDICARE, MEDICAID, SELFPAY ==
[2022-09-08 18:39] VITALS: BP 152/54; PULSE 83; RESP 16; TEMP 36.4; O2SAT 97
--- NOTE | 2022-09-08 18:59 | CT_ITS ---
STUDY: CT ABDOMEN AND PELVIS WITH CONTRAST REASON FOR EXAM: Female, 67 years old. Abdominal pain -- Dialysis patient RADIATION DOSAGE (If Supplied By Facility): CTDIvol = ( 13.55 ) mGy, DLP = ( 540.56 ) mGycm TECHNIQUE: IV 100mL Isovue-[id number] was administered. Transaxial images were obtained from the dome of the diaphragm to the symphysis pubis. Multiplanar coronal and sagittal images were reformatted. Individualized Dose Optimization Techniques Were Used For This CT. COMPARISON: November 2021 FINDINGS: The visualized lung bases are unremarkable. The visualized portions of the heart are within normal limits. Normal liver. Normal gallbladder and extrahepatic biliary system. Splenomegaly redemonstrated. Normal pancreas. Normal bilateral adrenal glands. Normal visualized stomach. Normal small intestine. Normal colon. The appendix is visualized and appears normal. Normal abdominal aorta. No retroperitoneal adenopathy. Atrophic kidneys. Normal urinary bladder. There is absence of the uterus consistent with a prior hysterectomy. Left spigelian hernia redemonstrated. Thoracolumbar spine degenerative change. CT/Abdomen/Pelvis W IV Cont ONLY IMPRESSION: No acute abnormal finding in the abdomen or pelvis. Electronically Signed: Ryan Stringer MD at 22:20 EDT ,
[2022-09-08 19:03] VITALS: BMI 49.0
--- NOTE | 2022-09-08 19:03 | EDS_ITS ---
HPI HPI - GI History of Present Illness Chief Complaint: Abd Pain Narrative Narrative: 67-year-old female past medical history of diabetes, end-stage renal disease gets dialysis Saturday and Saturday, completed her dialysis yesterday. She presents with abdominal pain and constipation along with nausea. She states yesterday at dialysis she did receive Phenergan because she had an upset stomach. However, she did not have any abdominal pain at that time. She states she was constipated. Today, she awoke and she states that she has had multiple episodes of having bowel movements and passing hard stool. She is nauseated but has not vomited. She denies any fevers or chills but states she is having abdominal pain in the left upper quadrant and diffusely. She relates history that she has had liver transplant at [facility] remotely and gets laboratory work performed but has been stable. She presents because of the abdominal pain that she is having in the epigastrium to the left upper quadrant, and diffusely. She denies any rectal bleeding. No hematemesis or other symptoms. [facility] Medical History Anemia Anemia in chronic kidney disease Back pain Blister Cancer Cardiology follow-up encounter Celiac disease Chronic kidney disease, stage 3 Chronic kidney failure Chronic renal failure, stage 5 Cirrhosis COPD (chronic obstructive pulmonary disease) Diabetes Dialysis patient DVT (deep venous thrombosis) ESRD (end stage renal disease) Gastric reflux GERD (gastroesophageal reflux disease) History of echocardiogram (~01/22/20) History of edema History of irregular heartbeat History of renal disease History of stress test (~12/07/19) History of uterine cancer Hx of Krueger's palsy Hypertension Infection involving suture with abscess Insulin dependent diabetes mellitus [employer] Non-smoker Osteoporosis Pancytopenia Sleep apnea Wears dentures Wears glasses Home Medications ascorbic acid (vitamin C) 500 mg chewable tablet 1,000 mg PO DAILY supplement 02/20/15 [History Last Taken 09/09/19] cholecalciferol (vitamin D3) 25 mcg (1,000 unit) tablet 1,000 unit PO BID supplement 02/20/15 [History Last Taken 09/09/19] atorvastatin 10 mg tablet 10 mg PO QHS cholestrol 10/19/16 [History Last Taken 09/09/19] insulin glargine 100 unit/mL (3 mL) subcutaneous pen (Lantus Solostar U-100 Insulin) 35 unit SQ BID blood sugar 05/29/18 [History Last Taken 09/09/19] tacrolimus 1 mg capsule, immediate-release (Prograf) 0.5 mg PO BID REJECTION 09/10/19 [History Last Taken 04/27/21] trazodone 150 mg tablet 200 mg PO QHS SLEEP 09/10/19 [History Last Taken 09/09/19] vitamin B complex 1 tablet PO DAILY SUPPLEMENT 09/10/19 [History Last Taken 09/09/19] carvedilol 25 mg tablet 12.5 mg PO BID heart 02/25/20 [History Last Taken 08/03/20] hydroxyzine HCl 25 mg tablet 25 mg PO BID PRN Itching 05/23/20 [History Last Taken Unknown] levothyroxine 25 mcg tablet 88 mcg PO DAILY thyroid 05/23/20 [History Last Taken 04/28/21] ropinirole 1 mg tablet 1 mg PO .QAM restless legs 05/23/20 [History Last Taken 06/16/20] torsemide 20 mg tablet 60 mg PO DAILY FLUID 05/23/20 [History Last Taken Unknown] ropinirole 2 mg tablet,extended release 24 hr 2 mg PO QHS restless legs 06/10/20 [History Last Taken Unknown] sevelamer carbonate 800 mg tablet (Renvela) 800 mg PO TID kidney disease 06/10/20 [History Last Taken Unknown] clopidogrel 75 mg tablet (Plavix) 75 mg PO DAILY anti platelet 04/28/21 [History Last Taken Unknown] nitroglycerin 0.4 mg sublingual tablet 0.4 mg sublingual Q5M PRN Cardiac/Chest Pain #30 tabs 04/29/21 [Rx Last Taken Unknown] biotin 1 mg capsule 1 mg PO DAILY supplement 08/11/21 [History Last Taken Unknown] melatonin 3 mg tablet 10 mg PO QHS sleep 08/11/21 [History Last Taken Unknown] sertraline 50 mg tablet (Zoloft) 50 mg PO DAILY mood 08/11/21 [History Last Taken Unknown] albuterol sulfate 90 mcg/actuation aerosol inhaler 2 puff IH Q4H PRN PRN Sob &/Or Wheezing 30 days #8.6 grams 10/25/21 [Rx Last Taken Unknown] dicyclomine 20 mg tablet 20 mg PO TID PRN abdominal discomfort #20 tabs 10/25/21 [Rx Last Taken Unknown] hydrocortisone 100 mg/60 mL enema 300 mg (180 mL) LA QHS 21 days #3,780 mL 10/25/21 [Rx Last Taken Unknown] diphenoxylate-atropine 2.5 mg-0.025 mg tablet (Lomotil) 1 tab PO TID PRN diarrhea #90 tabs 10/27/21 [Rx Last Taken Unknown] doxycycline hyclate 100 mg capsule 100 mg PO BID #14 caps 12/08/21 [Rx Last Taken Unknown] hydroxyzine pamoate 25 mg capsule (Vistaril) 25 mg PO TID PRN itching #20 caps 02/07/22 [Rx Last Taken Unknown] hydrocodone-acetaminophen 5-325mg 5mg-325mg 1 tab PO Q6H PRN PRN Pain 3 days #10 TABLETS 04/07/22 [Rx Last Taken Unknown] apremilast 30 mg tablet (Otezla) 30 mg PO DAILY 09/08/22 [History Last Taken Unknown] insulin aspart U-100 100 unit/mL (3 mL) subcutaneous pen (Novolog FlexPen U-100 Insulin aspart) 25 unit subcut TID 09/08/22 [History Last Taken Unknown] promethazine 25 mg tablet 25 mg PO TID PRN nausea and vomiting #12 tabs 09/08/22 [Rx Last Taken Unknown] Allergy/AdvReac Type Severity Reaction Status Date / Time amlodipine [From Norvasc] Allergy Severe Hives Verified 09/08/22 18:41 ampicillin sodium Allergy Severe Hives Verified 09/08/22 18:41 [From Unasyn] buspirone HCl [From BuSpar] Allergy Severe Hives Verified 09/08/22 18:41 cefadroxil [From Duricef] Allergy Severe Hives Verified 09/08/22 18:41 lisinopril Allergy Severe Swelling Verified 09/08/22 18:41 naproxen Allergy Severe Hives Verified 09/08/22 18:41 niacin Allergy Severe Hives Verified 09/08/22 18:41 [From Niaspan Extended-Release] sulbactam sodium Allergy Severe Hives Verified 09/08/22 18:41 [From Unasyn] Sulfa (Sulfonamide Allergy Severe Hives Verified 09/08/22 18:41 Antibiotics) cephalexin [From Keflex] Allergy Vomiting Verified 09/08/22 18:41 omeprazole AdvReac Severe Other Verified 09/08/22 18:41 losartan AdvReac Swelling Verified 09/08/22 18:41 Family History Mother Diabetes Anemia Father Hypertension LUNG/RESPIRATORY DISEASE Surgical History History of appendectomy History of cholecystectomy History of coronary artery stent placement History of left knee surgery History of left salpingo-oophorectomy History of liver transplant History of radical hysterectomy History of ventral hernia repair S/P arteriovenous (AV) fistula creation (~06/16/20) Social History housing: apartment current occupational status: disabled Smoking Status: Never smoker substance use type: does not use ROS ROS ED ROS Narrative Constitutional: No fever, no chills. HEENT: No sore throat. No neck pain. No loss of vision. No rhinorrhea. Cardiovascular: No chest pain. No palpitations. No pedal edema. Respiratory: No cough, no shortness of breath. Abdominal: Left upper quadrant, epigastric to diffuse abdominal pain. Positive nausea. No vomiting. Constipated, now having bowel movements multiple times today. No melena or hematochezia. Genitourinary: No dysuria. No hematuria. Musculoskeletal: No myalgias. No arthralgias. Neurologic: No headaches. No dizziness. No lightheadedness. Skin: No rash. No change in color. Psychiatric: No depression. No anxiety. EXAM Physical Exam Narrative Exam Narrative: Afebrile. Vital signs noted. HEENT: Normocephalic. Atraumatic. PERRL, EOMI. Neck soft and supple. No point tenderness or step off. Cardiovascular: Regular rate and rhythm. No murmurs, rubs, or gallops appreciated. Respiratory: No tachypnea. Lungs clear to auscultation bilaterally. Gastrointestinal: Abdomen soft, diffuse tenderness to palpation and in left upper quadrant with normoactive bowel sounds. No rebound or guarding. Neurological: Awake. Alert. Nonfocal, nonlateralizing. Skin: No rash. Normal color. No pallor. Musculoskeletal: No pedal edema. Full range of motion extremities. Const Vital Signs: 09/08/22 18:39 09/08/22 20:39 09/08/22 22:04 Temperature 97.5 F L 97 F L Temperature Source Temporal Oral Pulse Rate 83 82 88 Respiratory Rate 16 16 16 Blood Pressure 152/54 H 154/65 H 174/77 H Blood Pressure Mean 86 94 109 Pulse Ox 97 Oxygen Delivery Method Room Air Room Air Room Air MDM MDM MDM Narrative Medical decision making narrative: Patient requested intramuscular Phenergan as she states that is what she usually takes. She has multiple allergies to various medications. Comprehensive work- up was pursued. In order to help rule out obstruction or diverticulitis I do feel that CT imaging is indicated. I do feel that IV contrast can be used as she has already had dialysis patient and received her full dialysis yesterday. She will be due for dialysis on Saturday. I will check her labs such as CBC, CMP, and lipase. I reviewed her laboratory work and she has chronic neutropenia as she is a liver transplant patient and it is 3.5 and stable, she has chronic anemia with a hemoglobin of 9.5 today, platelet count low at 83. This is also a chronic thrombocytopenia. Review of her electrolyte panel BUN 22, creatinine 5.08 with history of end-stage renal disease. Sodium slightly low at 135, normal potassium of 4.2. Glucose is elevated at 197 but she has a normal anion gap of 5. Lipase is normal at 37. I obtained a CT of the abdomen pelvis with IV contrast. Radiology requested a 500 mL bolus even though she is already on dialysis. I feel that given a negative CT, she states she was constipated because she took Imodium because she had diarrhea and she usually gets diarrhea during dialysis so she was given another dose of Imodium the following day and now she is having bowel movements again more frequently. At this point in time, I will write her a prescription for a few Phenergan tablets as she received intramuscular Phenergan here for nausea. I feel she be discharged safely home with follow-up and I do not feel that she requires observation or admission. Patient and her are comfortable with the plan. Disposition is discharged home in stable condition. History & Record Review Discussion w/independent historian: Patient Additional record(s) reviewed:: Prior ED visit and Prior labs Lab Data Attestation: I reviewed the patient's lab results. Labs: Laboratory Results - last 24 hr 09/08/22 19:16 WBC 3.5 L RBC 3.06 L Hgb 9.5 L Hct 31.0 L MCV 101.3 H MCH 31.0 MCHC 30.6 L RDW Std Deviation 69.7 H RDW Coeff of Tami 19.7 H Plt Count 83 L MPV 10.6 Immature Gran % (Auto) 1.400 H Neut % (Auto) 76.1 H Lymph % (Auto) 10.4 L [place] % (Auto) 7.2 Eos % (Auto) 4.3 Baso % (Auto) 0.6 Absolute Neuts (auto) 2.6 Absolute Lymphs (auto) 0.36 L Nucleated RBC % 0 Differential Comment SCANNED Diff Path Review May foll Platelet Estimate MOD DEC Polychromasia RARE Basophilic Stippling RARE Anisocytosis 1+ Sodium 135 L Potassium 4.2 Chloride 99 Carbon Dioxide 31.0 Anion Gap 5 BUN 22 H Creatinine 5.08 H Estim Creat Clear Calc 7.93 Est GFR (MDRD) Af Amer 11 L Est GFR (MDRD) Non-Af 9 L BUN/Creatinine Ratio 4.3 L Glucose 197 H Calcium 8.9 Total Bilirubin 0.60 AST 29 ALT 35 Alkaline Phosphatase 102 Total Protein 6.6 Albumin 2.8 L Globulin 3.8 Albumin/Globulin Ratio 0.7 L Lipase 37 Radiography Diagnostic Testing: Clinical Impression(s) from Imaging Studies Abdomen/Pelvis CT 09/08/22 18:59 IMPRESSION: No acute abnormal finding in the abdomen or pelvis. Electronically Signed: Ryan Stringer MD at 22:20 EDT , Discharge Plan Triage Chief Complaint: Abd Pain ED Provider: Steve Kim Dx/Rx/DC Orders Clinical Impression: Abdominal pain, ESRD (end stage renal disease), Nausea Instructions: ED Abdominal Pain Unkn Cause Fem, ED Pain, Acute, Uncertain Cause Prescriptions: New promethazine 25 mg tablet 25 mg PO TID PRN (Reason: nausea and vomiting) Qty: 12 0RF No Action hydroxyzine HCl 25 mg tablet 25 mg PO BID PRN (Reason: Itching) ascorbic acid (vitamin C) 500 MG tablet,chewable 1,000 mg PO DAILY Patient Comments: supplement cholecalciferol (vitamin D3) 1,000 UNIT tablet 1,000 unit PO BID Patient Comments: bone health levothyroxine 25 mcg tablet 88 mcg PO DAILY atorvastatin 10 MG tablet 10 mg PO QHS insulin glargine [Lantus Solostar U-100 Insulin] 100 UNIT/ML insulin pen 35 unit SQ BID Hold Instructions: until follow up with pcp your blood sugars have been low while in hospital ropinirole 1 mg tablet 1 mg PO .QAM trazodone 150 MG tablet 200 mg PO QHS tacrolimus [Prograf] 1 MG capsule 0.5 mg PO BID vitamin B complex 1 EACH tablet 1 tablet PO DAILY torsemide 20 mg tablet 60 mg PO DAILY carvedilol 25 MG tablet 12.5 mg PO BID sevelamer carbonate [Renvela] 800 MG tablet 800 mg PO TID ropinirole 2 MG tablet extended release 24 hr 2 mg PO QHS clopidogrel [Plavix] 75 mg Tablet 75 mg PO DAILY Hold Instructions: Resume on 10/27/21. nitroglycerin 0.4 mg Tablet, Sublingual 0.4 mg sublingual Q5M PRN (Reason: Cardiac/Chest Pain) Qty: 30 0RF sertraline [Zoloft] 50 MG tablet 50 mg PO DAILY Patient Comments: depression biotin 1 mg Capsule 1 mg PO DAILY melatonin 3 mg Tablet 10 mg PO QHS hydrocortisone 100 mg/60 mL enema 300 mg LA QHS 21 Days Qty: 3780 0RF dicyclomine 20 mg tablet 20 mg PO TID PRN (Reason: abdominal discomfort) Qty: 20 0RF albuterol sulfate 1 PUFF inhaler 2 puff IH Q4H PRN PRN (Reason: Sob &/Or Wheezing) 30 Days Qty: 8.6 0RF doxycycline hyclate 100 mg capsule 100 mg PO BID Qty: 14 0RF hydroxyzine pamoate [Vistaril] 25 mg capsule 25 mg PO TID PRN (Reason: itching) Qty: 20 0RF hydrocodone-acetaminophen [hydrocodone-acetaminophen] 1 TABLET tablet 1 tab PO Q6H PRN PRN (Reason: Pain) 3 Days Qty: 10 0RF Otezla 30 mg tablet 30 mg PO DAILY insulin aspart U-100 [Novolog FlexPen U-100 Insulin] 100 unit/mL (3 mL) insulin pen 25 unit subcut TID diphenoxylate-atropine [Lomotil] 2.5-0.025 mg tablet 1 tab PO TID PRN (Reason: diarrhea) Qty: 90 2RF Primary Care Provider: Velia Archuleta Referrals: Velia Archuleta MD [Primary Care Provider] - As soon as possible Disposition Disposition: Home, Self Care
[2022-09-08] MEDS: proMETHazine 25 MG/ML Syringe 12.5 MG IM (19:12)
[2022-09-08 19:29] LABS: Absolute Lymphocyte Count 0.36 X10^3/uL (0.83-4.51); Absolute Neutrophil Count 2.6 X10^3/uL (2.0-7.7); Basophil# 0.02 X10^3/uL; Basophil% 0.6 % (0-1); Eosinophil# 0.15 X10^3/uL; Eosinophils% 4.3 % (0-5); Hemoglobin 9.5 g/dL (12.0-15.0); Lymphocyte # 0.36 X10^3/ul (0.83-4.51); Lymphocyte % 10.4 % (19-41); Mean Corp Hgb Conc 30.6 g/dL (32-36); Mean Corpuscular Volume 101.3 fL (81-99); Mean Platelet Vol. 10.6 fl (6.2-12.0); Monocyte# 0.25 X10^3/uL; Monocyte% 7.2 % (0-10); NRBC Flagged by Analyzer 0 % (0-5); Neutrophil # 2.64 X10^3/uL (2.7-7.7); Neutrophil % 76.1 % (47-70); POSITIVE COUNT YES; POSITIVE DIFFERENTIAL YES; POSITIVE MORPHOLOGY YES; Platelet Count 83 K/mm3 (150-450); RBC Distribution Width CV 19.7 % (11.6-14.6); RBC Distribution Width SD 69.7 fl (35.1-43.9); Red Blood Count 3.06 M/mm3 (4.2-5.4); White Blood Count 3.5 K/mm3 (4.4-11.0)
[2022-09-08 19:31] LABS: Differential Indicated SCAN CRITERIA MET
[2022-09-08 19:45] LABS: ALB/GLOB Ratio 0.7 RATIO (0.9-2.4); AST(SGOT) 29 U/L (15-37); Alanine Aminotransfer ALT/SGPT 35 U/L (13-56); Albumin, Serum 2.8 g/dL (3.2-5.0); Alkaline Phosphatase 102 U/L (45-117); Anion Gap 5 (5-15); BUN 22 mg/dL (7-18); BUN/Creat Ratio 4.3 RATIO (10-20); Calcium,Total 8.9 mg/dL (8.5-10.1); Chloride 99 mmol/L (98-107); Creatinine, Serum 5.08 mg/dL (0.55-1.02); EST Glomerular Filtration Rate 9 mL/min (>60); Est Glom Filt Rate - Afr Amer 11 mL/min (>60); Estimated Creatinine Clearance 7.93 ml/min; Globulin 3.8 g/dL (2.2-4.2); Glucose 197 mg/dL (74-106); Lipase 37 U/L (13-75); Potassium 4.2 mmol/L (3.5-5.1); Protein, Total 6.6 g/dL (6.4-8.2); Sodium Level 135 mmol/L (136-145)
[2022-09-08 20:16] LABS: Differential Comment SCANNED
[2022-09-08 20:17] LABS: Anisocytosis 1+; Polychromasia RARE
[2022-09-08 20:18] LABS: Basophilic Stippling RARE; Platelet Estimate MOD DEC (ADEQ)
[2022-09-08 20:39] VITALS: BP 154/65; PULSE 82; RESP 16; TEMP 36.1
[2022-09-08 22:04] VITALS: BP 174/77; PULSE 88; RESP 16
[2022-09-08] MEDS: Ondansetron 4 MG/2 ML Vial IV (22:38)
[2022-09-08 22:44] VITALS: BP 142/50; PULSE 81; RESP 18; O2SAT 94
[2022-09-10 13:51] LABS: Pathologist Review Reviewed
== END 2022-09-08 22:48 | disposition home or self-care (01) ==
PROVIDERS: Emergency Provider Emergency Medicine; PCP Internal Medicine; Visit Provider Emergency Medicine
DX: R10.12 Left upper quadrant pain (principal); Z94.4 Liver transplant status; D61.818 Other pancytopenia; Z99.2 Dependence on renal dialysis; J44.9 Chronic obstructive pulmonary disease, unspecified; E11.22 Type 2 diabetes mellitus with diabetic chronic kidney disease; E11.65 Type 2 diabetes mellitus with hyperglycemia; I12.0 Hypertensive chronic kidney disease with stage 5 chronic kidney disease or end stage renal disease; N18.6 End stage renal disease; Z79.4 Long term (current) use of insulin; R10.13 Epigastric pain; R11.0 Nausea; Z79.02 Long term (current) use of antithrombotics/antiplatelets; Z79.899 Other long term (current) drug therapy
CPT/HCPCS: 74177; 80053; 83690; 85025; 96361; 96372; 96374; 99283; J7030; Q9967; A4216; J2405

== ENCOUNTER 2022-09-12 11:05 | Emergency (ER) | payer MEDICARE, MEDICAID, SELFPAY ==
[2022-09-12 11:06] VITALS: BP 152/63; PULSE 74; RESP 16; TEMP 36.2; O2SAT 100
--- NOTE | 2022-09-12 11:42 | EKG12_ITS ---
Test Reason : ABNL PAIN Blood Pressure : / mmHG Vent. Rate : 073 BPM Atrial Rate : 073 BPM P-R Int : 220 ms QRS Dur : 142 ms QT Int : 458 ms P-R-T Axes : 047 -43 041 degrees QTc Int : 504 ms Sinus rhythm with 1st degree A-V block Left axis deviation Left bundle branch block Abnormal ECG Confirmed by CHRISTAL FOFANA, ARMANDO ([id number]), editorial assistant STEPHANIE PHAM ([id number]) on 09/13/2022 2:26:56 PM Referred By: GRANT Confirmed By:ARMANDO SIEGEL MD
[2022-09-12] MEDS: Dicyclomine 20 MG/2 ML Vial IM (12:00)
[2022-09-12 12:31] LABS: Absolute Lymphocyte Count 0.36 X10^3/uL (0.83-4.51); Absolute Neutrophil Count 2.6 X10^3/uL (2.0-7.7); Basophil# 0.02 X10^3/uL; Basophil% 0.6 % (0-1); Eosinophils% 5.7 % (0-5); Hematocrit 29.8 % (37-47); Hemoglobin 8.9 g/dL (12.0-15.0); Lymphocyte # 0.36 X10^3/ul (0.83-4.51); Lymphocyte % 10.3 % (19-41); Mean Corp Hgb Conc 29.9 g/dL (32-36); Mean Corpuscular Hgb 30.3 pg (27.0-32.0); Mean Corpuscular Volume 101.4 fL (81-99); Mean Platelet Vol. 10.4 fl (6.2-12.0); Monocyte# 0.23 X10^3/uL; Monocyte% 6.6 % (0-10); NRBC Flagged by Analyzer 0 % (0-5); Neutrophil # 2.64 X10^3/uL (2.7-7.7); Neutrophil % 75.7 % (47-70); POSITIVE COUNT YES; POSITIVE DIFFERENTIAL YES; POSITIVE MORPHOLOGY YES; Platelet Count 78 K/mm3 (150-450); RBC Distribution Width CV 19.9 % (11.6-14.6); RBC Distribution Width SD 73.8 fl (35.1-43.9); Red Blood Count 2.94 M/mm3 (4.2-5.4); White Blood Count 3.5 K/mm3 (4.4-11.0)
[2022-09-12 12:34] LABS: Differential Indicated SCAN CRITERIA MET
[2022-09-12 12:49] LABS: ALB/GLOB Ratio 0.7 RATIO (0.9-2.4); AST(SGOT) 25 U/L (15-37); Alanine Aminotransfer ALT/SGPT 31 U/L (13-56); Albumin, Serum 2.8 g/dL (3.2-5.0); Alkaline Phosphatase 107 U/L (45-117); Anion Gap 10 (5-15); BUN 70 mg/dL (7-18); BUN/Creat Ratio 7.8 RATIO (10-20); Calcium,Total 8.6 mg/dL (8.5-10.1); Chloride 98 mmol/L (98-107); Creatinine, Serum 9.01 mg/dL (0.55-1.02); EST Glomerular Filtration Rate 5 mL/min (>60); Est Glom Filt Rate - Afr Amer 6 mL/min (>60); Globulin 4.2 g/dL (2.2-4.2); Glucose 87 mg/dL (74-106); Lipase 47 U/L (13-75); Magnesium 3.2 mg/dL (1.6-2.6); Potassium 5.6 mmol/L (3.5-5.1); Sodium Level 133 mmol/L (136-145)
[2022-09-12 13:28] LABS: Anisocytosis 1+; Platelet Estimate MOD DEC (ADEQ)
[2022-09-12 14:37] VITALS: BP 147/65; PULSE 72; RESP 16
--- NOTE | 2022-09-12 15:28 | EX.ED.DYSGE1 ---
HPI History of Present Illness Chief Complaint: Abd Pain Narrative Narrative: Patient is a 67-year-old female who is presenting to the ER today because of diarrhea for the past 6 to 7 days, abdominal cramping, and patient has missed dialysis on Saturday and today. Patient has a history of end-stage renal disease, patient goes to dialysis on Saturday, Saturday, Saturday. Patient did not go Saturday or yesterday secondary to having diarrhea at home. No recent antibiotics, no recent traveling, no recent water source changes. Patient is not lightheaded or dizzy. Patient's granddaughter is at bedside. She has no chest pain or shortness of breath. Patient believes that she needs dialysis as well. 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 Had nausea no vomiting. No other acute complaints. Patient lives at home with family. [facility] Medical History Anemia Anemia in chronic kidney disease Back pain Blister Cancer Cardiology follow-up encounter Celiac disease Chronic kidney disease, stage 3 Chronic kidney failure Chronic renal failure, stage 5 Cirrhosis COPD (chronic obstructive pulmonary disease) Diabetes Dialysis patient DVT (deep venous thrombosis) ESRD (end stage renal disease) Gastric reflux GERD (gastroesophageal reflux disease) History of echocardiogram (~01/22/20) History of edema History of irregular heartbeat History of renal disease History of stress test (~12/07/19) History of uterine cancer Hx of Krueger's palsy Hypertension Infection involving suture with abscess Insulin dependent diabetes mellitus [employer] Non-smoker Osteoporosis Pancytopenia Sleep apnea Wears dentures Wears glasses Home Medications ascorbic acid (vitamin C) 500 mg chewable tablet 1,000 mg PO DAILY supplement 02/20/15 [History Last Taken 09/09/19] cholecalciferol (vitamin D3) 25 mcg (1,000 unit) tablet 1,000 unit PO BID supplement 02/20/15 [History Last Taken 09/09/19] atorvastatin 10 mg tablet 10 mg PO QHS cholestrol 10/19/16 [History Last Taken 09/09/19] insulin glargine 100 unit/mL (3 mL) subcutaneous pen (Lantus Solostar U-100 Insulin) 35 unit SQ BID blood sugar 05/29/18 [History Last Taken 09/09/19] tacrolimus 1 mg capsule, immediate-release (Prograf) 0.5 mg PO BID REJECTION 09/10/19 [History Last Taken 04/27/21] trazodone 150 mg tablet 200 mg PO QHS SLEEP 09/10/19 [History Last Taken 09/09/19] vitamin B complex 1 tablet PO DAILY SUPPLEMENT 09/10/19 [History Last Taken 09/09/19] carvedilol 25 mg tablet 12.5 mg PO BID heart 02/25/20 [History Last Taken 08/03/20] hydroxyzine HCl 25 mg tablet 25 mg PO BID PRN Itching 05/23/20 [History Last Taken Unknown] levothyroxine 25 mcg tablet 88 mcg PO DAILY thyroid 05/23/20 [History Last Taken 04/28/21] ropinirole 1 mg tablet 1 mg PO .QAM restless legs 05/23/20 [History Last Taken 06/16/20] torsemide 20 mg tablet 60 mg PO DAILY FLUID 05/23/20 [History Last Taken Unknown] ropinirole 2 mg tablet,extended release 24 hr 2 mg PO QHS restless legs 06/10/20 [History Last Taken Unknown] sevelamer carbonate 800 mg tablet (Renvela) 800 mg PO TID kidney disease 06/10/20 [History Last Taken Unknown] clopidogrel 75 mg tablet (Plavix) 75 mg PO DAILY anti platelet 04/28/21 [History Last Taken Unknown] nitroglycerin 0.4 mg sublingual tablet 0.4 mg sublingual Q5M PRN Cardiac/Chest Pain #30 tabs 04/29/21 [Rx Last Taken Unknown] biotin 1 mg capsule 1 mg PO DAILY supplement 08/11/21 [History Last Taken Unknown] melatonin 3 mg tablet 10 mg PO QHS sleep 08/11/21 [History Last Taken Unknown] sertraline 50 mg tablet (Zoloft) 50 mg PO DAILY mood 08/11/21 [History Last Taken Unknown] albuterol sulfate 90 mcg/actuation aerosol inhaler 2 puff IH Q4H PRN PRN Sob &/Or Wheezing 30 days #8.6 grams 10/25/21 [Rx Last Taken Unknown] dicyclomine 20 mg tablet 20 mg PO TID PRN abdominal discomfort #20 tabs 10/25/21 [Rx Last Taken Unknown] hydrocortisone 100 mg/60 mL enema 300 mg (180 mL) AR QHS 21 days #3,780 mL 10/25/21 [Rx Last Taken Unknown] diphenoxylate-atropine 2.5 mg-0.025 mg tablet (Lomotil) 1 tab PO TID PRN diarrhea #90 tabs 10/27/21 [Rx Last Taken Unknown] doxycycline hyclate 100 mg capsule 100 mg PO BID #14 caps 12/08/21 [Rx Last Taken Unknown] hydroxyzine pamoate 25 mg capsule (Vistaril) 25 mg PO TID PRN itching #20 caps 02/07/22 [Rx Last Taken Unknown] hydrocodone-acetaminophen 5-325mg 5mg-325mg 1 tab PO Q6H PRN PRN Pain 3 days #10 TABLETS 04/07/22 [Rx Last Taken Unknown] apremilast 30 mg tablet (Otezla) 30 mg PO DAILY 09/08/22 [History Last Taken Unknown] insulin aspart U-100 100 unit/mL (3 mL) subcutaneous pen (Novolog FlexPen U-100 Insulin aspart) 25 unit subcut TID 09/08/22 [History Last Taken Unknown] promethazine 25 mg tablet 25 mg PO TID PRN nausea and vomiting #12 tabs 09/08/22 [Rx Last Taken Unknown] Allergy/AdvReac Type Severity Reaction Status Date / Time amlodipine [From Norvasc] Allergy Severe Hives Verified 09/12/22 11:08 ampicillin sodium Allergy Severe Hives Verified 09/12/22 11:08 [From Unasyn] buspirone HCl [From BuSpar] Allergy Severe Hives Verified 09/12/22 11:08 cefadroxil [From Duricef] Allergy Severe Hives Verified 09/12/22 11:08 lisinopril Allergy Severe Swelling Verified 09/12/22 11:08 naproxen Allergy Severe Hives Verified 09/12/22 11:08 niacin Allergy Severe Hives Verified 09/12/22 11:08 [From Niaspan Extended-Release] sulbactam sodium Allergy Severe Hives Verified 09/12/22 11:08 [From Unasyn] Sulfa (Sulfonamide Allergy Severe Hives Verified 09/12/22 11:08 Antibiotics) cephalexin [From Keflex] Allergy Vomiting Verified 09/12/22 11:08 omeprazole AdvReac Severe Other Verified 09/12/22 11:08 losartan AdvReac Swelling Verified 09/12/22 11:08 Family History Mother Diabetes Anemia Father Hypertension LUNG/RESPIRATORY DISEASE Surgical History History of appendectomy History of cholecystectomy History of coronary artery stent placement History of left knee surgery History of left salpingo-oophorectomy History of liver transplant History of radical hysterectomy History of ventral hernia repair S/P arteriovenous (AV) fistula creation (~06/16/20) Social History housing: apartment current occupational status: disabled Smoking Status: Never smoker substance use type: does not use ROS ROS ED ROS Narrative REVIEW OF SYSTEMS: Unless otherwise stated in this report the patient's positive and negative responses for review of systems for constitutional, eyes, ENT, cardiovascular, respiratory, gastrointestinal, neurological, , musculoskeletal, and integument systems and related systems to the presenting problem are either stated in the history of present illness or were not pertinent or were negative for the symptoms and/or complaints related to the presenting medical problem. EXAM Physical Exam Narrative Exam Narrative: Vital signs reviewed and patient is not hypoxic. General: The patient appears well and in no apparent distress. Patient is resting comfortably on cart. Not toxic, lethargic, or listless. Skin: Warm, dry, no pallor noted. There is no rash noted. Head: Normocephalic, atraumatic Eye: Normal conjunctiva, no drainage, EOMI. PERRL. Ears, Nose, Mouth, and Throat: oral mucosa is moist. Nares patent. Mouth without vesicles. Cardiovascular: Regular Rate and Rhythm, no murmurs, gallops, or rubs Respiratory: Patient is in no distress, no accessory muscle use, lungs are clear to auscultation, no wheezing, rales or rhonchi Back: non-tender, no CVA tenderness bilaterally to percussion. NO CTLS midline or paraspinal tenderness to palpation. GI: Soft, obese, diffuse mild tenderness to palpation, no masses appreciated. No rebound, guarding, or rigidity noted. Musculoskeletal: The patient has full range of motion of all extremities and joints with no difficulty. Patient has no motor, no sensory deficits. Patient has a working fistula to her left upper arm, good bruits and thrills noted. Chronic peripheral edema to bilateral lower extremities, equal. No signs of cellulitis, venous stasis, no pain to posterior aspect of bilateral lower extremities Neurological: A&O x4, normal speech, no focal neurological deficits. Psychiatric: Cooperative Const Vital Signs: 09/12/22 11:06 09/12/22 14:37 09/12/22 15:33 Temperature 97.1 F L 99 F Temperature Source Temporal Pulse Rate 74 72 84 Respiratory Rate 16 16 16 Blood Pressure 152/63 H 147/65 H 154/65 H Blood Pressure Mean 92 92 Pulse Ox 100 Oxygen Delivery Method Room Air MDM MDM MDM Narrative Medical decision making narrative: Patient is being discharged at 3:30 PM, going directly to dialysis and she will have dialysis today from 4 to 7 PM. I spoken to the nurse practitioner for Dr. Strickland. She agrees with discharging patient and sending her to dialysis today. Patient agrees with this plan as well. Patient will continue increased fluids at home. Patient has nausea and belly cramping medicine at home. No need for additional prescriptions. Patient's granddaughter will be driving patient directly to dialysis. Lab Data Attestation: I reviewed the patient's lab results. Lab results narrative: Patient has evidence of chronic anemia, end-stage renal disease secondary to not going to dialysis on Saturday and Saturday today. Potassium 5.6. Magnesium 3.2. Labs: Laboratory Results - last 24 hr 09/12/22 12:10 WBC 3.5 L RBC 2.94 L Hgb 8.9 L Hct 29.8 L MCV 101.4 H MCH 30.3 MCHC 29.9 L RDW Std Deviation 73.8 H RDW Coeff of Tami 19.9 H Plt Count 78 L MPV 10.4 Immature Gran % (Auto) 1.100 H Neut % (Auto) 75.7 H Lymph % (Auto) 10.3 L Camp % (Auto) 6.6 Eos % (Auto) 5.7 H Baso % (Auto) 0.6 Absolute Neuts (auto) 2.6 Absolute Lymphs (auto) 0.36 L Nucleated RBC % 0 Differential Comment COMMENT Diff Path Review May foll Platelet Estimate MOD DEC Anisocytosis 1+ Sodium 133 L Potassium 5.6 H Chloride 98 Carbon Dioxide 25.0 Anion Gap 10 BUN 70 H Creatinine 9.01 H* Est GFR (MDRD) Af Amer 6 L Est GFR (MDRD) Non-Af 5 L BUN/Creatinine Ratio 7.8 L Glucose 87 Calcium 8.6 Magnesium 3.2 H Total Bilirubin 0.50 AST 25 ALT 31 Alkaline Phosphatase 107 Total Protein 7.0 Albumin 2.8 L Globulin 4.2 Albumin/Globulin Ratio 0.7 L Lipase 47 Discharge Plan Triage Chief Complaint: Abd Pain ED Provider: Reji Mendez Dx/Rx/DC Orders Clinical Impression: ESRD (end stage renal disease), Nausea, Diarrhea Instructions: ED Diarrhea, Unknown Cause, ED Hemodialysis Prescriptions: No Action hydroxyzine HCl 25 mg tablet 25 mg PO BID PRN (Reason: Itching) ascorbic acid (vitamin C) 500 MG tablet,chewable 1,000 mg PO DAILY Patient Comments: supplement cholecalciferol (vitamin D3) 1,000 UNIT tablet 1,000 unit PO BID Patient Comments: bone health levothyroxine 25 mcg tablet 88 mcg PO DAILY atorvastatin 10 MG tablet 10 mg PO QHS insulin glargine [Lantus Solostar U-100 Insulin] 100 UNIT/ML insulin pen 35 unit SQ BID Hold Instructions: until follow up with pcp your blood sugars have been low while in hospital ropinirole 1 mg tablet 1 mg PO .QAM trazodone 150 MG tablet 200 mg PO QHS tacrolimus [Prograf] 1 MG capsule 0.5 mg PO BID vitamin B complex 1 EACH tablet 1 tablet PO DAILY torsemide 20 mg tablet 60 mg PO DAILY carvedilol 25 MG tablet 12.5 mg PO BID sevelamer carbonate [Renvela] 800 MG tablet 800 mg PO TID ropinirole 2 MG tablet extended release 24 hr 2 mg PO QHS clopidogrel [Plavix] 75 mg Tablet 75 mg PO DAILY Hold Instructions: Resume on 10/27/21. nitroglycerin 0.4 mg Tablet, Sublingual 0.4 mg sublingual Q5M PRN (Reason: Cardiac/Chest Pain) Qty: 30 0RF sertraline [Zoloft] 50 MG tablet 50 mg PO DAILY Patient Comments: depression biotin 1 mg Capsule 1 mg PO DAILY melatonin 3 mg Tablet 10 mg PO QHS hydrocortisone 100 mg/60 mL enema 300 mg AR QHS 21 Days Qty: 3780 0RF dicyclomine 20 mg tablet 20 mg PO TID PRN (Reason: abdominal discomfort) Qty: 20 0RF albuterol sulfate 1 PUFF inhaler 2 puff IH Q4H PRN PRN (Reason: Sob &/Or Wheezing) 30 Days Qty: 8.6 0RF doxycycline hyclate 100 mg capsule 100 mg PO BID Qty: 14 0RF hydroxyzine pamoate [Vistaril] 25 mg capsule 25 mg PO TID PRN (Reason: itching) Qty: 20 0RF hydrocodone-acetaminophen [hydrocodone-acetaminophen] 1 TABLET tablet 1 tab PO Q6H PRN PRN (Reason: Pain) 3 Days Qty: 10 0RF Otezla 30 mg tablet 30 mg PO DAILY insulin aspart U-100 [Novolog FlexPen U-100 Insulin] 100 unit/mL (3 mL) insulin pen 25 unit subcut TID promethazine 25 mg tablet 25 mg PO TID PRN (Reason: nausea and vomiting) Qty: 12 0RF diphenoxylate-atropine [Lomotil] 2.5-0.025 mg tablet 1 tab PO TID PRN (Reason: diarrhea) Qty: 90 2RF Primary Care Provider: Velia Archuleta Referrals: Velia Archuleta MD [Primary Care Provider] - Activity Restrictions/Additional Instructions: Go directly to dialysis, at 4PM. You are being discharged now, go directly to dialysis now to obtain dialysis at your dialysis center. Disposition Disposition: Home, Self Care Discharge Date/Time: 09/12/22 15:34
[2022-09-12 15:33] VITALS: BP 154/65; PULSE 84; RESP 16; TEMP 37.2
[2022-09-13 10:27] LABS: Pathologist Review Reviewed
== END 2022-09-12 15:34 | disposition home or self-care (01) ==
PROVIDERS: Emergency Provider Emergency Medicine; PCP Internal Medicine; Visit Provider Emergency Medicine
DX: I12.0 Hypertensive chronic kidney disease with stage 5 chronic kidney disease or end stage renal disease (principal); Z94.4 Liver transplant status; Z99.2 Dependence on renal dialysis; J44.9 Chronic obstructive pulmonary disease, unspecified; E11.22 Type 2 diabetes mellitus with diabetic chronic kidney disease; N18.6 End stage renal disease; Z79.4 Long term (current) use of insulin; D63.1 Anemia in chronic kidney disease; R11.0 Nausea; R19.7 Diarrhea, unspecified; Z95.5 Presence of coronary angioplasty implant and graft; Z79.02 Long term (current) use of antithrombotics/antiplatelets; Z79.899 Other long term (current) drug therapy
CPT/HCPCS: 80053; 83690; 83735; 85025; 93005; 96372; 99284

== ENCOUNTER 2022-12-26 09:59 | Emergency (ER) | payer MEDICARE, MEDICAID, SELFPAY ==
[2022-12-26 09:59] VITALS: BP 150/58; PULSE 76; RESP 14; TEMP 36.3; O2SAT 97
--- NOTE | 2022-12-26 10:18 | EDS_ITS ---
HPI HPI - GI History of Present Illness Chief Complaint: Abd Pain Informant: patient Abdominal Pain/Flank Pain Onset: Days (2) Context: Gradual Onset Timing: Continuous Quality: Sharp Location: Epigastric Worsened by: Food and - (Phenergan) Relieved by: Nothing Nausea/Vomiting/Emesis GI Symptom: Positive for Nausea; Negative for Vomiting Diarrhea/Melena/Hematochezia GI Symptom: Positive for Diarrhea; Negative for Melena or Hematochezia Associated Symptoms Associated Symptoms: Negative for Dysuria, Frequency or Hematuria Narrative Narrative: Patient presents with abdominal pain that has been getting worse over the past 2 days. Patient states she had a virtual visit with her primary care physician for this today. Patient states that her primary care physician told her to come to the emergency department. Patient has a history of liver transplant and cirrhosis. Patient states her pain is mainly over the epigastric area. Patient states it is worse after eating and worse after taking Phenergan. Patient states nothing seems to help with it. Patient admits to nausea but denies any v omiting. Patient admits to diarrhea but denies any melena or hematochezia. Patient denies any dysuria, frequency, or hematuria. [facility] Medical History Anemia Anemia in chronic kidney disease Back pain Blister Cancer Cardiology follow-up encounter Celiac disease Chronic kidney disease, stage 3 Chronic kidney failure Chronic renal failure, stage 5 Cirrhosis COPD (chronic obstructive pulmonary disease) Diabetes Dialysis patient DVT (deep venous thrombosis) ESRD (end stage renal disease) Gastric reflux GERD (gastroesophageal reflux disease) History of echocardiogram (~01/22/20) History of edema History of irregular heartbeat History of renal disease History of stress test (~12/07/19) History of uterine cancer Hx of Krueger's palsy Hypertension Infection involving suture with abscess Insulin dependent diabetes mellitus [employer]ANT Non-smoker Osteoporosis Pancytopenia Sleep apnea Wears dentures Wears glasses Home Medications ascorbic acid (vitamin C) 500 mg chewable tablet 1,000 mg PO DAILY supplement 02/20/15 [History Last Taken 09/09/19] cholecalciferol (vitamin D3) 25 mcg (1,000 unit) tablet 1,000 unit PO BID supplement 02/20/15 [History Last Taken 09/09/19] atorvastatin 10 mg tablet 10 mg PO QHS cholestrol 10/19/16 [History Last Taken 09/09/19] insulin glargine 100 unit/mL (3 mL) subcutaneous pen (Lantus Solostar U-100 Insulin) 35 unit SQ BID blood sugar 05/29/18 [History Last Taken 09/09/19] tacrolimus 1 mg capsule, immediate-release (Prograf) 0.5 mg PO BID REJECTION 09/10/19 [History Last Taken 04/27/21] trazodone 150 mg tablet 200 mg PO QHS SLEEP 09/10/19 [History Last Taken ] vitamin B complex 1 tablet PO DAILY SUPPLEMENT 09/10/19 [History Last Taken 09/09/19] carvedilol 25 mg tablet 12.5 mg PO BID heart 02/25/20 [History Last Taken 08/03/20] hydroxyzine HCl 25 mg tablet 25 mg PO BID PRN Itching 05/23/20 [History Last Taken Unknown] levothyroxine 25 mcg tablet 88 mcg PO DAILY thyroid 05/23/20 [History Last Taken 04/28/21] ropinirole 1 mg tablet 1 mg PO .QAM restless legs 05/23/20 [History Last Taken 06/16/20] torsemide 20 mg tablet 60 mg PO DAILY FLUID 05/23/20 [History Last Taken Unknown] ropinirole 2 mg tablet,extended release 24 hr 2 mg PO QHS restless legs 06/10/20 [History Last Taken Unknown] sevelamer carbonate 800 mg tablet (Renvela) 800 mg PO TID kidney disease 06/10/20 [History Last Taken Unknown] clopidogrel 75 mg tablet (Plavix) 75 mg PO DAILY anti platelet 04/28/21 [History Last Taken Unknown] nitroglycerin 0.4 mg sublingual tablet 0.4 mg sublingual Q5M PRN Cardiac/Chest Pain #30 tabs 04/29/21 [Rx Last Taken Unknown] biotin 1 mg capsule 1 mg PO DAILY supplement 08/11/21 [History Last Taken Unknown] melatonin 3 mg tablet 10 mg PO QHS sleep 08/11/21 [History Last Taken Unknown] sertraline 50 mg tablet (Zoloft) 50 mg PO DAILY mood 08/11/21 [History Last Taken Unknown] albuterol sulfate 90 mcg/actuation aerosol inhaler 2 puff IH Q4H PRN PRN Sob &/Or Wheezing 30 days #8.6 grams 08/24/22 [Rx Last Taken Unknown] dicyclomine 20 mg tablet 20 mg PO TID PRN abdominal discomfort #20 tabs 10/25/21 [Rx Last Taken Unknown] hydrocortisone 100 mg/60 mL enema 300 mg (180 mL) [facility] QHS 21 days #3,780 mL 10/25/21 [Rx Last Taken Unknown] diphenoxylate-atropine 2.5 mg-0.025 mg tablet (Lomotil) 1 tab PO TID PRN diarrhea #90 tabs 10/27/21 [Rx Last Taken Unknown] doxycycline hyclate 100 mg capsule 100 mg PO BID #14 caps 12/08/21 [Rx Last Taken Unknown] hydroxyzine pamoate 25 mg capsule (Vistaril) 25 mg PO TID PRN itching #20 caps 02/07/22 [Rx Last Taken Unknown] hydrocodone-acetaminophen 5-325mg 5mg-325mg 1 tab PO Q6H PRN PRN Pain 3 days #10 TABLETS 04/07/22 [Rx Last Taken Unknown] apremilast 30 mg tablet (Otezla) 30 mg PO DAILY 09/08/22 [History Last Taken Unknown] insulin aspart U-100 100 unit/mL (3 mL) subcutaneous pen (Novolog FlexPen U-100 Insulin aspart) 25 unit subcut TID 09/08/22 [History Last Taken Unknown] promethazine 25 mg tablet 25 mg PO TID PRN nausea and vomiting #12 tabs 09/08/22 [Rx Last Taken Unknown] Allergy/AdvReac Type Severity Reaction Status Date / Time amlodipine [From Norvasc] Allergy Severe Hives Verified 12/26/22 10:01 ampicillin sodium Allergy Severe Hives Verified 12/26/22 10:01 [From Unasyn] buspirone HCl [From BuSpar] Allergy Severe Hives Verified 12/26/22 10:01 cefadroxil [From Duricef] Allergy Severe Hives Verified 12/26/22 10:01 lisinopril Allergy Severe Swelling Verified 12/26/22 10:01 naproxen Allergy Severe Hives Verified 12/26/22 10:01 niacin Allergy Severe Hives Verified 12/26/22 10:01 [From Niaspan Extended-Release] sulbactam sodium Allergy Severe Hives Verified 12/26/22 10:01 [From Unasyn] Sulfa (Sulfonamide Allergy Severe Hives Verified 12/26/22 10:01 Antibiotics) cephalexin [From Keflex] Allergy Vomiting Verified 12/26/22 10:01 omeprazole AdvReac Severe Other Verified 12/26/22 10:01 losartan AdvReac Swelling Verified 12/26/22 10:01 Family History Mother Diabetes Anemia Father Hypertension LUNG/RESPIRATORY DISEASE Surgical History History of appendectomy History of cholecystectomy History of coronary artery stent placement History of left knee surgery History of left salpingo-oophorectomy History of liver transplant History of radical hysterectomy History of ventral hernia repair S/P arteriovenous (AV) fistula creation (~06/16/20) Social History housing: apartment current occupational status: disabled Smoking Status: Never smoker substance use type: does not use ROS ROS ED Constitutional Constitutional ED: Reports fever(s) and subjective; Denies chills Eyes Eyes: Denies blurry vision or change in vision ENT ENT ED: Denies rhinorrhea or sore throat Cardiovascular Cardiovascular: Denies chest pain or palpitations Respiratory/Chest Respiratory/Chest: Reports dyspnea; Denies cough Gastrointestinal Gastrointestinal: Reports abdominal pain, diarrhea and nausea; Denies vomiting Genitourinary Genitourinary ED: Denies dysuria or hematuria Musculoskeletal Musculoskeletal: Denies back pain or neck pain Integumentary Denies abscess or rash Neurologic Neurologic: Denies headache(s) or weakness Allergic/Immunologic Allergic/Immunologic ED: Denies mouth swelling or urticaria EXAM Physical Exam Const Vital Signs: 12/26/22 09:59 Temperature 97.3 F L Temperature Source Temporal Pulse Rate 76 Respiratory Rate 14 Blood Pressure 150/58 H Blood Pressure Mean 88 Pulse Ox 97 Oxygen Delivery Method Room Air Positive well nourished and well developed General Appearance ED: well developed and NAD HEENT Reports moist mucous membranes Neck supple and no JVD Resp normal respiratory effort and clear to auscultation bilaterally Cardio regular rate and regular rhythm GI Palpation: soft and tender epigastric; Negative for guarding or rebound tenderness present Neuro CN's II-XII intact bilaterally, moves all extremities and no sensory deficits noted Sensorium / Orientation: alert Motor Exam: strength 5/5 throughout Psych mental status grossly normal MDM MDM MDM Narrative Medical decision making narrative: Differential diagnosis includes gastritis, gastroenteritis, pancreatitis, GERD, peptic ulcer disease, duodenal ulcer, spontaneous bacterial peritonitis, bowel obstruction, and perforation. CT scan of the abdomen pelvis will be obtained to assess for bowel obstruction and perforation. CBC will be obtained to assess for leukocytosis and anemia. Comprehensive metabolic profile will be obtained to assess for hepatic function, renal function, and electrolyte abnormality. Lipase will be obtained to assess for pancreatitis. Lab Data Attestation: I reviewed the patient's lab results. Lab results narrative: CBC was reviewed. White blood cell count was slightly low at 2.6. There is a mild anemia with a hemoglobin 9.0 and hematocrit 29.8. Platelets were slightly low at 87. These were consistent with prior results. Comprehensive metabolic profile was reviewed. BUN was 38 and creatinine was 6.32. This was consistent with prior results. Lipase was reviewed and was normal at 39. Labs: Laboratory Results - last 24 hr 12/26/22 10:40 WBC 2.6 L RBC 3.04 L Hgb 9.0 L Hct 29.8 L MCV 98.0 MCH 29.6 MCHC 30.2 L RDW Std Deviation 60.6 H RDW Coeff of Tami 17.0 H Plt Count 87 L MPV 10.2 Immature Gran % (Auto) 1.100 H Neut % (Auto) 72.6 H Lymph % (Auto) 14.5 L [place] % (Auto) 8.0 Eos % (Auto) 3.4 Baso % (Auto) 0.4 Absolute Neuts (auto) 1.9 L Absolute Lymphs (auto) 0.38 L Nucleated RBC % 0 Differential Comment SCANNED Diff Path Review May foll Platelet Estimate MOD DEC Sodium 136 Potassium 4.6 Chloride 97 L Carbon Dioxide 32.0 Anion Gap 7 BUN 38 H Creatinine 6.32 H Estim Creat Clear Calc 7.99 Est GFR (MDRD) Af Amer 9 L Est GFR (MDRD) Non-Af 7 L BUN/Creatinine Ratio 6.0 L Glucose 169 H Calcium 8.8 Total Bilirubin 0.50 AST 17 ALT 27 Alkaline Phosphatase 98 Total Protein 6.8 Albumin 3.0 L Globulin 3.8 Albumin/Globulin Ratio 0.8 L Lipase 39 Radiography Diagnostic Testing: Clinical Impression(s) from Imaging Studies Abdomen/Pelvis CT 12/26/22 10:53 IMPRESSION: Splenomegaly. Diffuse atherosclerotic calcification of the aorta and its major visceral branches. Bilateral renal atrophy. Electronically Signed: Naren Boston MD at 11:27 EDT , CT scan of the abdomen and pelvis was obtained. There is no acute process. There is no bowel obstruction or perforation. There is no ascites noted. There is no free fluid or free air. This was interpreted by the radiologist and was also independently reviewed by myself. Treatment and Re-Evaluation :: Patient was given IV fluids, morphine, and Zofran. Patient was feeling better on reevaluation. Patient was advised of her findings. Patient states she has an appointment with her primary care physician tomorrow. Patient was instructed to follow-up with us as scheduled. Patient was instructed to start with small amounts of fluids more frequently. Patient was instructed to start with a bland diet and advance as tolerated. Patient understood and was agreeable with the plan. All questions were answered Discharge Plan Triage Chief Complaint: Abd Pain ED Provider: Carlton Greene Dx/Rx/DC Orders Clinical Impression: CKD (chronic kidney disease), stage III, Abdominal pain of unknown etiology Instructions: ED Abdominal Pain Unkn Cause Fem Prescriptions: No Action hydroxyzine HCl 25 mg tablet 25 mg PO BID PRN (Reason: Itching) ascorbic acid (vitamin C) 500 MG tablet,chewable 1,000 mg PO DAILY Patient Comments: supplement cholecalciferol (vitamin D3) 1,000 UNIT tablet 1,000 unit PO BID Patient Comments: bone health levothyroxine 25 mcg tablet 88 mcg PO DAILY atorvastatin 10 MG tablet 10 mg PO QHS insulin glargine [Lantus Solostar U-100 Insulin] 100 UNIT/ML insulin pen 35 unit SQ BID Hold Instructions: until follow up with pcp your blood sugars have been low while in hospital ropinirole 1 mg tablet 1 mg PO .QAM trazodone 150 MG tablet 200 mg PO QHS tacrolimus [Prograf] 1 MG capsule 0.5 mg PO BID vitamin B complex 1 EACH tablet 1 tablet PO DAILY torsemide 20 mg tablet 60 mg PO DAILY carvedilol 25 MG tablet 12.5 mg PO BID sevelamer carbonate [Renvela] 800 MG tablet 800 mg PO TID ropinirole 2 MG tablet extended release 24 hr 2 mg PO QHS clopidogrel [Plavix] 75 mg Tablet 75 mg PO DAILY Hold Instructions: Resume on 10/27/21. nitroglycerin 0.4 mg Tablet, Sublingual 0.4 mg sublingual Q5M PRN (Reason: Cardiac/Chest Pain) Qty: 30 0RF sertraline [Zoloft] 50 MG tablet 50 mg PO DAILY Patient Comments: depression biotin 1 mg Capsule 1 mg PO DAILY melatonin 3 mg Tablet 10 mg PO QHS hydrocortisone 100 mg/60 mL enema 300 mg VA QHS 21 Days Qty: 3780 0RF dicyclomine 20 mg tablet 20 mg PO TID PRN (Reason: abdominal discomfort) Qty: 20 0RF albuterol sulfate 1 PUFF inhaler 2 puff IH Q4H PRN PRN (Reason: Sob &/Or Wheezing) 30 Days Qty: 8.6 0RF doxycycline hyclate 100 mg capsule 100 mg PO BID Qty: 14 0RF hydroxyzine pamoate [Vistaril] 25 mg capsule 25 mg PO TID PRN (Reason: itching) Qty: 20 0RF hydrocodone-acetaminophen [hydrocodone-acetaminophen] 1 TABLET tablet 1 tab PO Q6H PRN PRN (Reason: Pain) 3 Days Qty: 10 0RF Otezla 30 mg tablet 30 mg PO DAILY insulin aspart U-100 [Novolog FlexPen U-100 Insulin] 100 unit/mL (3 mL) insulin pen 25 unit subcut TID promethazine 25 mg tablet 25 mg PO TID PRN (Reason: nausea and vomiting) Qty: 12 0RF diphenoxylate-atropine [Lomotil] 2.5-0.025 mg tablet 1 tab PO TID PRN (Reason: diarrhea) Qty: 90 2RF Primary Care Provider: Velia Archuleta Referrals: Velia Archuleta MD [Primary Care Provider] - [facility] appointment Disposition Disposition: Home, Self Care
[2022-12-26 10:37] VITALS: BMI 43.4
[2022-12-26] MEDS: Ondansetron 4 MG/2 ML Vial IV (10:42)
[2022-12-26] MEDS: Morphine 4 MG/ML Syringe IV (10:42)
[2022-12-26 10:52] LABS: Absolute Lymphocyte Count 0.38 X10^3/uL (0.83-4.51); Absolute Neutrophil Count 1.9 X10^3/uL (2.0-7.7); Basophil# 0.01 X10^3/uL; Basophil% 0.4 % (0-1); Eosinophil# 0.09 X10^3/uL; Eosinophils% 3.4 % (0-5); Hematocrit 29.8 % (37-47); Lymphocyte # 0.38 X10^3/ul (0.83-4.51); Lymphocyte % 14.5 % (19-41); Mean Corp Hgb Conc 30.2 g/dL (32-36); Mean Corpuscular Hgb 29.6 pg (27.0-32.0); Mean Platelet Vol. 10.2 fl (6.2-12.0); Monocyte# 0.21 X10^3/uL; NRBC Flagged by Analyzer 0 % (0-5); Neutrophil % 72.6 % (47-70); POSITIVE COUNT YES; POSITIVE DIFFERENTIAL YES; Platelet Count 87 K/mm3 (150-450); RBC Distribution Width SD 60.6 fl (35.1-43.9); Red Blood Count 3.04 M/mm3 (4.2-5.4); White Blood Count 2.6 K/mm3 (4.4-11.0)
--- NOTE | 2022-12-26 10:53 | CT_ITS ---
STUDY: CT ABDOMEN AND PELVIS WITHOUT CONTRAST REASON FOR EXAM: Female, 67 years old. Diffuse abdominal pain. RADIATION DOSAGE (If Supplied By Facility): CTDIvol = ( 22.42 ) mGy, DLP = ( 1282.84 ) mGycm TECHNIQUE: Transaxial images were obtained from the dome of the diaphragm to the symphysis pubis without oral contrast, and without intravenous contrast. Sagittal and coronal images were reconstructed. Individualized dose optimization techniques were used for this CT. COMPARISON: None. FINDINGS: The visualized lung bases are unremarkable. Coronary artery calcification. Small pericardial effusion. Normal liver. The gallbladder is contracted. There is moderate splenomegaly. Normal pancreas. Normal bilateral adrenal glands. Bilateral cortical renal atrophy. Normal visualized stomach. Normal small intestine. There are multiple colonic diverticula consistent with diverticulosis. There are surgical clips in the region of the appendix consistent with a prior appendectomy. There is diffuse atherosclerotic calcification of the abdominal aorta and its major visceral branches, without a demonstrated aneurysm. Normal inferior vena cava. Normal retroperitoneum. Normal urinary bladder. There is absence of the uterus consistent with a prior hysterectomy. There is evidence of a hernia arising from the left lateral abdominal wall containing fat. The neck of the hernia measures 4.2 cm. Focal soft tissue density are seen in the subcutaneous tissues overlying the lower anterior abdominal wall just deep to the skin. This may represent an traction sites. There are degenerative changes of the visualized lumbar spine. CT/Abdomen/Pelvis without Cont IMPRESSION: Splenomegaly. Diffuse atherosclerotic calcification of the aorta and its major visceral branches. Bilateral renal atrophy. Electronically Signed: Naren Boston MD at 11:27 EDT ,
[2022-12-26 11:08] LABS: ALB/GLOB Ratio 0.8 RATIO (0.9-2.4); AST(SGOT) 17 U/L (15-37); Alanine Aminotransfer ALT/SGPT 27 U/L (13-56); Alkaline Phosphatase 98 U/L (45-117); Anion Gap 7 (5-15); BUN 38 mg/dL (7-18); Calcium,Total 8.8 mg/dL (8.5-10.1); Chloride 97 mmol/L (98-107); Creatinine, Serum 6.32 mg/dL (0.55-1.02); EST Glomerular Filtration Rate 7 mL/min (>60); Est Glom Filt Rate - Afr Amer 9 mL/min (>60); Estimated Creatinine Clearance 7.99 ml/min; Globulin 3.8 g/dL (2.2-4.2); Glucose 169 mg/dL (74-106); Lipase 39 U/L (13-75); Potassium 4.6 mmol/L (3.5-5.1); Protein, Total 6.8 g/dL (6.4-8.2); Sodium Level 136 mmol/L (136-145)
[2022-12-26 11:16] LABS: Differential Indicated SCAN CRITERIA MET
[2022-12-26 12:44] LABS: Differential Comment SCANNED; Platelet Estimate MOD DEC (ADEQ)
[2022-12-26 14:48] VITALS: BP 139/76; PULSE 86; RESP 16; O2SAT 98
[2022-12-28 09:43] LABS: Pathologist Review Reviewed
== END 2022-12-26 14:49 | disposition home or self-care (01) ==
PROVIDERS: Emergency Provider Emergency Medicine; PCP Internal Medicine; Visit Provider Emergency Medicine
DX: R10.13 Epigastric pain (principal); Z94.4 Liver transplant status; N18.6 End stage renal disease; G47.30 Sleep apnea, unspecified; Z86.718 Personal history of other venous thrombosis and embolism; Z95.5 Presence of coronary angioplasty implant and graft
CPT/HCPCS: 74176; 80053; 83690; 85025; 96374; 96375; 99283; A4216; J2405

== ENCOUNTER 2022-12-31 05:37 | Emergency (ER) | payer MEDICARE, MEDICAID, SELFPAY ==
[2022-12-31 05:39] VITALS: BP 148/57; PULSE 77; RESP 18; TEMP 36.8; O2SAT 95; BMI 43.2
--- NOTE | 2022-12-31 05:49 | EX.ED.DYSGE1 ---
HPI History of Present Illness Chief Complaint: Abd Pain Narrative Narrative: Patient presents with epigastric pain, she has had it for over a week, she was seen here almost a week ago had a normal CT, it was thought to be gastritis or an ulcer. She is not on any PPI. She is not taking any Pepcid. She is status post a cholecystectomy and does not have right upper quadrant pain most of her pain is epigastric. Does not radiate into her back. No fevers or chills. She is denying any lower abdominal pain. No urinary symptoms. [facility] Medical History Anemia Anemia in chronic kidney disease Back pain Blister Cancer Cardiology follow-up encounter Celiac disease Chronic kidney disease, stage 3 Chronic kidney failure Chronic renal failure, stage 5 Cirrhosis COPD (chronic obstructive pulmonary disease) Diabetes Dialysis patient DVT (deep venous thrombosis) ESRD (end stage renal disease) Gastric reflux GERD (gastroesophageal reflux disease) History of echocardiogram (~01/22/20) History of edema History of irregular heartbeat History of renal disease History of stress test (~12/07/19) History of uterine cancer Hx of Krueger's palsy Hypertension Infection involving suture with abscess Insulin dependent diabetes mellitus LIVER TRANSPLANT Non-smoker Osteoporosis Pancytopenia Sleep apnea Wears dentures Wears glasses Home Medications ascorbic acid (vitamin C) 500 mg chewable tablet 1,000 mg PO DAILY supplement 02/20/15 [History Last Taken 09/09/19] cholecalciferol (vitamin D3) 25 mcg (1,000 unit) tablet 1,000 unit PO BID supplement 02/20/15 [History Last Taken 09/09/19] atorvastatin 10 mg tablet 10 mg PO QHS cholestrol 10/19/16 [History Last Taken 09/09/19] insulin glargine 100 unit/mL (3 mL) subcutaneous pen (Lantus Solostar U-100 Insulin) 35 unit SQ BID blood sugar 05/29/18 [History Last Taken 09/09/19] tacrolimus 1 mg capsule, immediate-release (Prograf) 0.5 mg PO BID REJECTION 09/10/19 [History Last Taken 04/27/21] vitamin B complex 1 tablet PO DAILY SUPPLEMENT 09/10/19 [History Last Taken 09/09/19] carvedilol 25 mg tablet 12.5 mg PO BID heart 02/25/20 [History Last Taken 08/03/20] hydroxyzine HCl 25 mg tablet 25 mg PO BID PRN Itching 05/23/20 [History Last Taken Unknown] ropinirole 1 mg tablet 1 mg PO DAILY restless legs 05/23/20 [History Last Taken 06/16/20] torsemide 20 mg tablet 60 mg PO DAILY FLUID 05/23/20 [History Last Taken Unknown] ropinirole 2 mg tablet,extended release 24 hr 2 mg PO QHS restless legs 06/10/20 [History Last Taken Unknown] sevelamer carbonate 800 mg tablet (Renvela) 1,600 mg PO .TID AC kidney disease 06/10/20 [History Last Taken Unknown] clopidogrel 75 mg tablet (Plavix) 75 mg PO DAILY anti platelet 04/28/21 [History Last Taken Unknown] nitroglycerin 0.4 mg sublingual tablet 0.4 mg sublingual Q5M PRN Cardiac/Chest Pain #30 tabs 04/29/21 [Rx Last Taken Unknown] biotin 1 mg capsule 1 mg PO DAILY supplement 08/11/21 [History Last Taken Unknown] melatonin 3 mg tablet 10 mg PO QHS sleep 08/11/21 [History Last Taken Unknown] sertraline 50 mg tablet (Zoloft) 50 mg PO DAILY mood 08/11/21 [History Last Taken Unknown] albuterol sulfate 90 mcg/actuation aerosol inhaler 2 puff IH Q4H PRN PRN Sob &/Or Wheezing 30 days #8.6 grams 10/25/21 [Rx Last Taken Unknown] dicyclomine 20 mg tablet 20 mg PO TID PRN abdominal discomfort #20 tabs 10/25/21 [Rx Last Taken Unknown] diphenoxylate-atropine 2.5 mg-0.025 mg tablet (Lomotil) 1 tab PO TID PRN diarrhea #90 tabs 10/27/21 [Rx Last Taken 12/30/22] hydrocodone-acetaminophen 5-325mg 5mg-325mg 1 tab PO Q6H PRN PRN Pain 3 days #10 TABLETS 04/07/22 [Rx Last Taken Unknown] apremilast 30 mg tablet (Otezla) 30 mg PO DAILY 09/08/22 [History Last Taken Unknown] insulin aspart U-100 100 unit/mL (3 mL) subcutaneous pen (Novolog FlexPen U-100 Insulin aspart) 25 unit subcut TID 09/08/22 [History Last Taken Unknown] promethazine 25 mg tablet 25 mg PO TID PRN nausea and vomiting #12 tabs 09/08/22 [Rx Last Taken Unknown] gabapentin 100 mg capsule 200 mg PO QHS 12/31/22 [History Last Taken Unknown] levothyroxine 88 mcg tablet 88 mcg PO DAILY 12/31/22 [History Last Taken Unknown] midodrine 10 mg tablet 10 mg PO MOWEFR 12/31/22 [History Last Taken Unknown] ondansetron 4 mg disintegrating tablet 4 mg translingual Q4H PRN nausea 12/31/22 [History Last Taken Unknown] pantoprazole 40 mg tablet,delayed release 40 mg PO DAILY 12/31/22 [History Last Taken Unknown] sucralfate 1 gram tablet (Carafate) 1 g PO BID #30 tabs 12/31/22 [Rx Last Taken Unknown] trazodone 100 mg tablet 200 mg PO QHS 12/31/22 [History Last Taken Unknown] Allergy/AdvReac Type Severity Reaction Status Date / Time amlodipine [From Norvasc] Allergy Severe Hives Verified 12/31/22 05:39 ampicillin sodium Allergy Severe Hives Verified 12/31/22 05:39 [From Unasyn] buspirone HCl [From BuSpar] Allergy Severe Hives Verified 12/31/22 05:39 cefadroxil [From Duricef] Allergy Severe Hives Verified 12/31/22 05:39 lisinopril Allergy Severe Swelling Verified 12/31/22 05:39 naproxen Allergy Severe Hives Verified 12/31/22 05:39 niacin Allergy Severe Hives Verified 12/31/22 05:39 [From Niaspan Extended-Release] sulbactam sodium Allergy Severe Hives Verified 12/31/22 05:39 [From Unasyn] Sulfa (Sulfonamide Allergy Severe Hives Verified 12/31/22 05:39 Antibiotics) cephalexin [From Keflex] Allergy Vomiting Verified 12/31/22 05:39 omeprazole AdvReac Severe Other Verified 12/31/22 05:39 losartan AdvReac Swelling Verified 12/31/22 05:39 Family History Mother Diabetes Anemia Father Hypertension LUNG/RESPIRATORY DISEASE Surgical History History of appendectomy History of cholecystectomy History of coronary artery stent placement History of left knee surgery History of left salpingo-oophorectomy History of liver transplant History of radical hysterectomy History of ventral hernia repair S/P arteriovenous (AV) fistula creation (~06/16/20) Social History housing: apartment current occupational status: disabled Smoking Status: Never smoker substance use type: does not use ROS ROS ED ROS Narrative Past medical history: Reviewed Medications: Reviewed Social history: Noncontributory Review of systems: All systems negative except as indicated General: No fever Eyes: No visual changes ENT: No upper airway congestion, normal voice Neck: No neck pain Cardiovascular: No chest pain Respiratory: No shortness of breath or cough Gastrointestinal: Epigastric pain as in HPI Genitourinary: No dysuria Musculoskeletal: Denies myalgias no difficulty with ambulation Skin: No rash Neurological: No memory loss, confusion or any focal weakness Psych: No recent behavioral changes Hematologic: No easy bleeding or easy bruising EXAM Physical Exam Narrative Exam Narrative: Physical exam General: Well nourished, Well developed, No Acute Distress Head: Normocephalic, Atraumatic Eyes: Conjunctiva not pale ENT: Moist mucous membranes Neck: Supple, Nontender, No lymphadenopathy Cardiovascular: Regular rate, Regular rhythm Respiratory: No distress, CTA bilaterally Abdomen: Soft, epigastric tenderness to palpation. No guarding or rebound. No right upper quadrant pain. No abdominal pain on palpation. Back: Nontender, Normal Inspection. Negative for: CVA tenderness Extremities: Left upper extremity has a fistula which has a palpable thrill Skin: Normal color, No rash Neurological: Alert, Normal Strength, Normal Sensation Psychological: Normal affect Const Vital Signs: 12/31/22 05:39 Temperature 98.3 F Temperature Source Oral Pulse Rate 77 Respiratory Rate 18 Blood Pressure 148/57 H Blood Pressure Mean 87 Pulse Ox 95 Oxygen Delivery Method Room Air MDM MDM MDM Narrative Medical decision making narrative: Patient has an unremarkable work-up. She had a recent CT of the abdomen and pelvis for similar symptoms therefore I do not believe reimaging is warranted. She likely has gastritis or an ulcer. We will treat as such I did notice that she is not on any antacids or PPI. I will prescribe this for her. She does not have pancreatitis, there is no evidence of peritonitis on my exam I am not worried about appendicitis since she does not have any right lower abdominal pain. We did call and she is due to have dialysis today and they will take her as soon as she leaves here. I told her to go straight to dialysis, she tells me her will take her. Lab Data Labs: Laboratory Results - last 24 hr 12/31/22 05:45 WBC 3.3 L RBC 2.92 L Hgb 8.9 L Hct 29.6 L MCV 101.4 H MCH 30.5 MCHC 30.1 L RDW Std Deviation 65.1 H RDW Coeff of Tami 17.3 H Plt Count 84 L MPV 10.4 Immature Gran % (Auto) 1.800 H Neut % (Auto) 72.5 H Lymph % (Auto) 14.8 L [place] % (Auto) 7.9 Eos % (Auto) 3.0 Baso % (Auto) 0.0 Absolute Neuts (auto) 2.4 Absolute Lymphs (auto) 0.49 L Nucleated RBC % 0 Sodium 134 L Potassium 4.8 Chloride 100 Carbon Dioxide 30.0 Anion Gap 4 L BUN 30 H Creatinine 6.32 H Estim Creat Clear Calc 7.99 Est GFR (MDRD) Af Amer 9 L Est GFR (MDRD) Non-Af 7 L BUN/Creatinine Ratio 4.7 L Glucose 120 H Calcium 8.9 Total Bilirubin 0.60 AST 16 ALT 30 Alkaline Phosphatase 92 Total Protein 6.6 Albumin 2.8 L Globulin 3.8 Albumin/Globulin Ratio 0.7 L Lipase 37 Discharge Plan Triage Chief Complaint: Abd Pain Other Complaint: Nausea/Vomiting ED Provider: Ryan Russell Dx/Rx/DC Orders Clinical Impression: Gastritis, ESRD (end stage renal disease), Nausea Instructions: ED Gastritis (Adult) Prescriptions: New sucralfate [Carafate] 1 gram tablet 1 g PO BID Qty: 30 0RF No Action hydroxyzine HCl 25 mg tablet 25 mg PO BID PRN (Reason: Itching) ascorbic acid (vitamin C) 500 MG tablet,chewable 1,000 mg PO DAILY Patient Comments: supplement cholecalciferol (vitamin D3) 1,000 UNIT tablet 1,000 unit PO BID Patient Comments: bone health atorvastatin 10 MG tablet 10 mg PO QHS insulin glargine [Lantus Solostar U-100 Insulin] 100 UNIT/ML insulin pen 35 unit SQ BID Hold Instructions: until follow up with pcp your blood sugars have been low while in hospital ropinirole 1 mg tablet 1 mg PO DAILY tacrolimus [Prograf] 1 MG capsule 0.5 mg PO BID vitamin B complex 1 EACH tablet 1 tablet PO DAILY torsemide 20 mg tablet 60 mg PO DAILY carvedilol 25 MG tablet 12.5 mg PO BID sevelamer carbonate [Renvela] 800 MG tablet 1,600 mg PO .TID AC ropinirole 2 MG tablet extended release 24 hr 2 mg PO QHS clopidogrel [Plavix] 75 mg Tablet 75 mg PO DAILY Hold Instructions: Resume on 10/27/21. nitroglycerin 0.4 mg Tablet, Sublingual 0.4 mg sublingual Q5M PRN (Reason: Cardiac/Chest Pain) Qty: 30 0RF sertraline [Zoloft] 50 MG tablet 50 mg PO DAILY Patient Comments: depression biotin 1 mg Capsule 1 mg PO DAILY melatonin 3 mg Tablet 10 mg PO QHS dicyclomine 20 mg tablet 20 mg PO TID PRN (Reason: abdominal discomfort) Qty: 20 0RF albuterol sulfate 1 PUFF inhaler 2 puff IH Q4H PRN PRN (Reason: Sob &/Or Wheezing) 30 Days Qty: 8.6 0RF hydrocodone-acetaminophen [hydrocodone-acetaminophen] 1 TABLET tablet 1 tab PO Q6H PRN PRN (Reason: Pain) 3 Days Qty: 10 0RF Otezla 30 mg tablet 30 mg PO DAILY insulin aspart U-100 [Novolog FlexPen U-100 Insulin] 100 unit/mL (3 mL) insulin pen 25 unit subcut TID promethazine 25 mg tablet 25 mg PO TID PRN (Reason: nausea and vomiting) Qty: 12 0RF levothyroxine 88 mcg tablet 88 mcg PO DAILY trazodone 100 mg tablet 200 mg PO QHS gabapentin 100 mg capsule 200 mg PO QHS Patient Comments: TAKE 2 CAPSULES BY MOUTH AT BEDTIME midodrine 10 mg tablet 10 mg PO MOWEFR Patient Comments: TAKE 1 TABLET BY MOUTH THREE DAYS (TIMES) A WEEK ON MON, WED & FRI BEFORE DIALYSIS ondansetron 4 mg tablet,disintegrating 4 mg translingual Q4H PRN (Reason: nausea) pantoprazole 40 mg tablet,delayed release (DR/EC) 40 mg PO DAILY Patient Comments: TAKE 1 TABLET BY MOUTH ONCE DAILY NEEDED diphenoxylate-atropine [Lomotil] 2.5-0.025 mg tablet 1 tab PO TID PRN (Reason: diarrhea) Qty: 90 2RF Primary Care Provider: Velia Archuleta Referrals: Velia Archuleta MD [Primary Care Provider] - 3-5 Days Disposition Disposition: Home, Self Care
[2022-12-31 05:58] LABS: Absolute Lymphocyte Count 0.49 X10^3/uL (0.83-4.51); Absolute Neutrophil Count 2.4 X10^3/uL (2.0-7.7); Hematocrit 29.6 % (37-47); Hemoglobin 8.9 g/dL (12.0-15.0); Lymphocyte # 0.49 X10^3/ul (0.83-4.51); Lymphocyte % 14.8 % (19-41); Mean Corp Hgb Conc 30.1 g/dL (32-36); Mean Corpuscular Hgb 30.5 pg (27.0-32.0); Mean Corpuscular Volume 101.4 fL (81-99); Mean Platelet Vol. 10.4 fl (6.2-12.0); Monocyte# 0.26 X10^3/uL; Monocyte% 7.9 % (0-10); NRBC Flagged by Analyzer 0 % (0-5); Neutrophil # 2.39 X10^3/uL (2.7-7.7); Neutrophil % 72.5 % (47-70); POSITIVE COUNT YES; POSITIVE DIFFERENTIAL YES; POSITIVE MORPHOLOGY YES; Platelet Count 84 K/mm3 (150-450); RBC Distribution Width CV 17.3 % (11.6-14.6); RBC Distribution Width SD 65.1 fl (35.1-43.9); Red Blood Count 2.92 M/mm3 (4.2-5.4); White Blood Count 3.3 K/mm3 (4.4-11.0)
[2022-12-31 05:59] LABS: Differential Indicated SCAN CRITERIA MET
[2022-12-31] MEDS: Mag Hydrox/Al Hydrox/Simeth 30 ML UDC PO (05:59)
[2022-12-31] MEDS: Famotidine 200 MG/20 ML MDV 20 MG in 0.9% Normal Saline (Pres. free 8 ML 300 MG IV (05:59)
[2022-12-31] MEDS: Ondansetron 4 MG/2 ML Vial IV (06:03)
[2022-12-31 06:22] LABS: ALB/GLOB Ratio 0.7 RATIO (0.9-2.4); AST(SGOT) 16 U/L (15-37); Alanine Aminotransfer ALT/SGPT 30 U/L (13-56); Albumin, Serum 2.8 g/dL (3.2-5.0); Alkaline Phosphatase 92 U/L (45-117); Anion Gap 4 (5-15); BUN 30 mg/dL (7-18); BUN/Creat Ratio 4.7 RATIO (10-20); Calcium,Total 8.9 mg/dL (8.5-10.1); Chloride 100 mmol/L (98-107); Creatinine, Serum 6.32 mg/dL (0.55-1.02); EST Glomerular Filtration Rate 7 mL/min (>60); Est Glom Filt Rate - Afr Amer 9 mL/min (>60); Estimated Creatinine Clearance 7.99 ml/min; Globulin 3.8 g/dL (2.2-4.2); Glucose 120 mg/dL (74-106); Lipase 37 U/L (13-75); Potassium 4.8 mmol/L (3.5-5.1); Protein, Total 6.6 g/dL (6.4-8.2); Sodium Level 134 mmol/L (136-145)
[2022-12-31 06:30] LABS: Anisocytosis 1+; Macrocytosis 1+; Platelet Estimate MOD DEC (ADEQ)
[2022-12-31 06:31] LABS: Hypochromasia 1+
[2022-12-31] MEDS: Morphine 4 MG/ML Syringe IV (06:35)
[2023-01-01 10:28] LABS: Pathologist Review Reviewed
== END 2022-12-31 06:50 | disposition home or self-care (01) ==
PROVIDERS: Emergency Provider Emergency Medicine; PCP Internal Medicine; Visit Provider Emergency Medicine
DX: K29.70 Gastritis, unspecified, without bleeding (principal); Z99.2 Dependence on renal dialysis; J44.9 Chronic obstructive pulmonary disease, unspecified; E11.22 Type 2 diabetes mellitus with diabetic chronic kidney disease; I12.0 Hypertensive chronic kidney disease with stage 5 chronic kidney disease or end stage renal disease; N18.6 End stage renal disease; Z79.4 Long term (current) use of insulin; G47.30 Sleep apnea, unspecified; Z79.899 Other long term (current) drug therapy; Z86.718 Personal history of other venous thrombosis and embolism; Z95.5 Presence of coronary angioplasty implant and graft
CPT/HCPCS: 80053; 83690; 85025; 96361; 96374; 96375; 99283; A4216; J2405; J3490

== ENCOUNTER → 2023-01-21 | Outpatient (CLI) | payer MEDICARE, MEDICAID, SELFPAY ==
--- NOTE | 2023-01-21 09:30 | US_ITS ---
STUDY: ABDOMINAL ULTRASOUND - RIGHT UPPER QUADRANT; ELASTOGRAPHY REASON FOR VISIT: Female, 67 years old. Fatty infiltration of the liver. TECHNIQUE: Ultrasound evaluation of the right upper quadrant was performed with real-time and static kraus-scale imaging. Point quantification shear wave elastography was performed ([place]). TECHNICAL QUALITY: Adequate. COMPARISON: Comparison is made with prior CT scan abdomen and pelvis dated December 26, 2022. FINDINGS: Liver: The liver measures 18.1 cm. There is increased echogenicity consistent with fatty infiltration. The bile ducts are within normal limits. There is hepatic color flow. The direction of portal flow is hepatopetal. There is no demonstrated mass lesion. Median liver stiffness measured 6.4 kPa. Gallbladder: The patient is status post cholecystectomy. Common Bile Duct (C.B.D.): The common bile duct measures 7.6 mm. Pancreas: There is normal echogenicity of the visualized pancreas. There is no demonstrated pancreatic mass or cyst. Right Kidney: Normal size of the right kidney. The right kidney measures 9.2 cm x 4.3 cm x 3.9 cm. Normal renal cortex. The right cortex measures 1 cm. There is no demonstrated renal mass or cyst. There is no right hydronephrosis. US/ABD Limited w/ Elastography IMPRESSION: 1. Liver stiffness measures 6.4 kPa compatible with F2-F3 (Mild to moderate liver fibrosis) Metavir score. Electronically Signed: Naren Boston MD at 10:46 EST ,
== END | disposition home or self-care (01) ==
LOC: US 09:29
PROVIDERS: PCP Internal Medicine; Referring Provider Internal Medicine; Visit Provider Internal Medicine
DX: K75.81 Nonalcoholic steatohepatitis (NASH) (principal); Z94.4 Liver transplant status
CPT/HCPCS: 76705; 76981

== ENCOUNTER 2023-01-30 06:50 | Day surgery (SDC) | payer MEDICARE, MEDICAID, SELFPAY ==
[2023-01-30 07:10] VITALS: PULSE 72; RESP 18; TEMP 36.3; O2SAT 96; BMI 42.1
--- NOTE | 2023-01-30 07:21 | PCM.HP.BLA ---
History and Physical Date of Admission: 01/30/23 CHRISTINA KUO, is a 67 F who presents to the office today for follow up. BGI established 04.28.21 during inpatient hospital visit. 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 Pt has been seen previously at [facility] for GI bleeds. Also multiple ER visits for hyperkalameia related to her dialysis. GI consulted 04.28 inpatient after presenting to [facility] 04.28.21 -04.29.21 for sudden onset rectal bleeding. Recent coronary artery status post 3 stents [facility]. Patient gets monthly his serum tacrolimus level and followed by metal flow coordinator [facility] EGD 07.26.21- normal esophagis, two recently bleeding angiodysplasic lesions in duodenum Treated with argon plasma CT abd/pel w/o 04.28.21- Negative unenhanced CT of the abdomen and pelvis for acute abnormality [facility] 10.23.21-10.25.21- Presented to ER for rectal bleeding. Diarrhea with blood. Dx Actue blood anemia secondary to GI bleed, CAD status post stent, DM type 2, ESRD on dialysis, Hyperkalema, MORA cirrhosis status post liver transplant, DVT prophylaxis EGD 10.24.21- normal esophagus, chronic gastritis, normal first portion of duodenum Colon 10.24.21- anal fissure, internal hemorrhoids with prolapse with straining, 3 polyps, multiple bleeding colonic angiodysplastic lesions- treated with monoolar probe [facility] 12.07.21-12.09.21 Presented to [facility] ER with SOB and nausea Dx hyperkalemia-K+ 6.5 on admission, right flank cellulitis, ESRD, acute dyspnea, hypothyroidism [facility] ER 09.08.22 Presented with abdominal pain, constipation and nausea. Rx promethazine CT abd/pel w/contrast 09.08.22- No acute abnormal finding in the abdomen or pelvis. [facility] ER 09.12.22 Presented with diarrhea for past 7 days, abdominal cramping and pain. [facility] ER 12.26.22 presented with abdominal pain worse over last 2 days, epigastric region. Given IV fluids, morphine and zofran. CT abd/pel w/contrast 12.26.22- Diffuse atherosclerotic calcification of the aorta and its major visceral branches. Bilateral renal atrophy [facility] ER 10.- epigastric pain over a week. Not on any PPI. Status post cholecystectomy. Likely has gastritis ir ulcer. Rx Sucralfate. OV 11.. Pt reports status post liver transplant in 2008. Is taking Tacrolimus 0.5 mg twice daily. Currently does dialysis MWF. Looking into possible kidney transplant. She does have appointment with asset protection officer as a work-up for kidney transplant in clinic. Has long history of heartburn and ulcers. Has daily epigastric pain that is getting worse over time. Complain of abdominal pain mainly mainly in upper abdomen from right to left but predominantly in epigastrium. She states food especially spicy and oily food makes it worse. Is taking Sucralfate and Pantoprazole which is somewhat helpful. Mild nausea and early satiety. ROS Const Constitutional: No fatigue ENT ENT: No difficulty swallowing Cardio Cardiology: Positive for leg pain with exertion Gastro GI: Positive for abdominal pain, constipation and nausea/dyspepsia; No belching, bloating, change in bowel habits, change in stool character, coffee ground emesis, cramping, diarrhea, heartburn, difficulty swallowing, feeling full early, excessive flatus, incontinent of stools, Vomiting blood/hematemesis, Blood in stool, loose stools, Black,tarry stools, pain with swallowing, vomiting or other Musc Musculoskeletal: Positive for back pain, muscle cramps, restless legs, leg pain at night and leg pain with exertion; No joint pain Skin Skin: No yellowing of the eye or itchy eyes Neuro Neurology: Positive for restless legs Psych Psychiatric: Positive for anxiety and Positive for depression Endo Endocrine: No fatigue Aller/Imm Allergy/Immunologic: No itchy eyes Erik/Lymp Hematologic/Lymphatic: Positive for easy bruising; No easy bleeding Exam Const General: cooperative, no acute distress and well developed Nutritional Appearance: obese Orientation: alert, awake and oriented x3 HENMT Head: normocephalic and atraumatic Nose: external nose normal Face and sinus: normal facial exam Mouth: moist mucous membranes Eyes Pupils: PERRL EOM: EOM intact bilaterally Neck Neck: normal visual inspection, no meningeal signs and trachea midline Carotids: no bruits Chest Chest palpation & inspection: normal inspection of the chest Resp Effort & Inspection: normal respiratory effort and symmetric chest movement Auscultation: Bilateral: Clear to Auscultation Cardio Palpation: normal PMI Rate: regular rate Rhythm: regular rhythm Heart Sounds: S1 normal and S2 normal Other: Systolic murmur over right second ICS and LLSB. GI Auscultation: normal bowel sounds Percussion: normal to percussion Palpation: soft, no hepatosplenomegaly and no guarding Other: Transplant discarding the abdomen. No guarding/rigidity. Scar tissue and hard to palpate mass. Does not seem like ascites. General: bimanual renal exam normal bilaterally, bladder normal to inspection and bladder normal to palpation Bimanual Exam- Vagina & Uterus: bladder normal to palpation Musc Musculoskeletal: No joint tenderness, joint redness, joint warmth or decreased range of motion Thoracic/Lumbar Spine: thor and lumb spine abnorm to inspection Skin General: rashes and/or lesions noted, turgor normal and no erythema Wounds: wound noted Neuro General: patient alert, patient awake, patient oriented x3 and no focal motor deficits Speech: speech normal Motor: muscle tone normal throughout Extrem General: normal exam except as noted Psych Appearance: grossly normal Mood: congruent mood Affect: normal affect Attitude: cooperative Quality Reporting Tobacco Screening ([facility] 138) Smoking Status: Never smoker Assessment and Plan Assessment and Plan (1) Abdominal pain: Status: Acute Qualifiers: Abdominal location: upper abdomen, unspecified Qualified Code(s): R10.10 - Upper abdominal pain, unspecified Plan: Patient having upper abdominal pain mainly in epigastric region. As per last EGD on first 2021, it shows Chronic gastritis, normal esophagus normal D1. Previous EGD in July 2019 shows 2 recently bleeding angiodysplastic lesion for which APC was done. She recently had EGD done during ED visit, last ER visit on 12/31/2022. Last abdomen pelvis CT without contrast from 12/26/2022, images individually reviewed shows normal liver vasectomy moderate splenomegaly. Normal pancreas. Patient states he had cholecystectomy after liver transplant. Normal stomach small intestine. Multiple colonic diverticula without diverticulitis. Prior appendectomy. Diffuse atherosclerotic calcification abdominal aorta and major visceral branches without aneurysm Discussed with the Dr. Lerner. Requested EGD. Pantoprazole 40 mg twice daily. Continue sucralfate given an EGD. (2) MORA (nonalcoholic steatohepatitis): Status: Chronic Plan: She had blood work status post orthotopic liver transplant in 2008. She is on tacrolimus 0.5 mg twice daily. As per review of previous blood work, I do not see serum tacrolimus level at least since May 2022. Advise serum tacrolimus in fasting state with metal flow coordinator who is Poli Snyder and fax to our office. She states she did not had recently cystograms and volume of stool. Last liver chemistry from November 26, 2022 reviewed. Liver chemistry normal limit. Serum albumin 3.6. GGT 24. Last BMP from 12/31/2022 reviewed. She is undergoing kidney transplant evaluation in [facility]. She has appointment with asset protection officer on coming . Currently on dialysis and follows Dr. Strickland. Last fasting lipid profile 11/26/2022 total cholesterol 134, triglyceride high 456, HDL 23. LDL could not be calculated SA 50. VLDL 61.. Serum magnesium 2.2. Liver follow-up test ordered before next visit 3 months. Liver ultrasound with elastography ordered. (3) History of liver transplant: Status: Chronic (4) Morbid obesity due to excess calories: Status: Acute Plan: 43 2.2%. Weight loss counseling done. (5) Type 2 diabetes mellitus: Status: Chronic Qualifiers: Diabetes mellitus senior living insulin use: with intermodal customer service use Plan: On Lantus insulin 35 units twice daily. Insulin aspart 25 units with meals. Last A1c 5.2% on 11/26/2022 as per [facility]. This is controlled barring few times. CT. (6) Chronic anemia: Status: Chronic Plan: She has pancytopenia with on 11/26/2022. 3.3 thousand, H&H 8.9/29.6% and platelet count 84,000 on 12/31/2022. Due to chronic disease and ESRD. Orders: I have examined the patient and the H&P has been reviewed. There are no clinical changes since date of exam.
[2023-01-30] MEDS: 0.9% Normal Saline (500mL Bag) 500 ML 15 ML IV (07:22)
[2023-01-30 07:40] LABS: Bedside Glucose 72 mg/dL (74-106)
[2023-01-30 07:45] VITALS: BP 102/44; PULSE 69; RESP 16; TEMP 36.3; O2SAT 100
--- NOTE | 2023-01-30 07:46 | OP.EGD_ITS ---
Patient Name: Sivan Guerrier Procedure Date: 01/30/2023 7:16 AM Date of : 1955 Age: 67 Procedure: Upper GI endoscopy Indications: Epigastric abdominal pain, Dysphagia Providers: Buck Lerner DO Medicines: Monitored Anesthesia Care Patient Profile: This is a 67 year old female. Refer to note in patient chart for documentation of history and physical. Patient has symptoms of chronic epigastric abdominal pain. Complications: No immediate complications. Procedure: Pre-Anesthesia Assessment: - Prior to the procedure, a History and Physical was performed, and patient medications and allergies were reviewed. The patient is competent. The risks and benefits of the procedure and the sedation options and risks were discussed with the patient. All questions were answered and informed consent was obtained. Patient identification and proposed procedure were verified by the physician in the pre-procedure area. Mental Status Examination: alert and oriented. Airway Examination: normal oropharyngeal airway and neck mobility. Respiratory Examination: clear to auscultation. CV Examination: normal. Prophylactic Antibiotics: The patient does not require prophylactic antibiotics. Prior Anticoagulants: The patient has taken no anticoagulant or antiplatelet agents. ASA Grade Assessment: III - A patient with severe systemic disease. After reviewing the risks and benefits, the patient was deemed in satisfactory condition to undergo the procedure. The anesthesia plan was to use monitored anesthesia care (MAC). Immediately prior to administration of medications, the patient was re-assessed for adequacy to receive sedatives. The heart rate, respiratory rate, oxygen saturations, blood pressure, adequacy of pulmonary ventilation, and response to care were monitored throughout the procedure. The physical status of the patient was re-assessed after the procedure. After obtaining informed consent, the endoscope was passed under direct vision. Throughout the procedure, the patient's blood pressure, pulse, and oxygen saturations were monitored continuously. The gastroscope was introduced through the mouth, and advanced to the second part of duodenum. The upper GI endoscopy was accomplished without difficulty. The patient tolerated the procedure well. Scope In: 7:30:47 AM Scope Out: 7:37:22 AM Total Procedure Duration Time 0 hours 6 minutes 35 seconds Findings: Patchy glycogenic acanthosis was found in the middle third of the esophagus and in the lower third of the esophagus. Biopsies were taken with a cold forceps for histology. Verification of patient identification for the specimen was done. Estimated blood loss was minimal. A small hiatal hernia was present. Two oozing linear gastric ulcers with pigmented material were found in the prepyloric region of the stomach. The largest lesion was 4 mm in largest dimension. Coagulation for hemostasis using monopolar probe was successful. Estimated blood loss was minimal. Biopsies were taken with a cold forceps for histology. Verification of patient identification for the specimen was done. Biopsies were taken with a cold forceps for Helicobacter pylori testing. Verification of patient identification for the specimen was done. Estimated blood loss was minimal. No gross lesions were noted in the second portion of the duodenum. A moderate Schatzki ring was found in the lower third of the esophagus. A guidewire was placed and the scope was withdrawn. Dilation was performed with a Savary dilator with no resistance at 42 Fr. The dilation site was examined and showed moderate improvement in luminal narrowing. Impression: - Glycogenic acanthosis of the esophagus. Biopsied. - Small hiatal hernia. - Oozing gastric ulcers with pigmented material. Treated with a monopolar probe. Biopsied. - No gross lesions in the second portion of the duodenum. - Moderate Schatzki ring. Dilated. Recommendation: - Discharge patient to home. - Resume previous diet. - Continue present medications. - Use Pepcid (famotidine) 20 mg PO BID for 6 weeks. Procedure Code(s): --- Professional --- 00932, 59, Esophagogastroduodenoscopy, flexible, transoral; with control of bleeding, any method 38267, Esophagogastroduodenoscopy, flexible, transoral; with insertion of guide wire followed by passage of dilator(s) through esophagus over guide wire 06861, 59,51, Esophagogastroduodenoscopy, flexible, transoral; with biopsy, single or multiple CPT copyright 2021 [employer]. All rights reserved. The codes documented in this report are preliminary and upon pre coder review may be revised to meet current compliance requirements. Buck Lerner DO 01/30/2023 7:46:12 AM This report has been signed electronically. Number of Addenda: 0 Note Initiated On: 01/30/2023 7:16 AM
--- NOTE | 2023-01-30 07:46 | OP.CCLET_ITS ---
01/30/2023 Velia Archuleta [address] [place] [address] Re : Upper GI endoscopy procedure for Sivan Chey Dear Dr. Archuleta This procedure was performed on Monday, January 30, 2023. My impressions and recommendations are as follows: Impressions : - Glycogenic acanthosis of the esophagus. Biopsied. - Small hiatal hernia. - Oozing gastric ulcers with pigmented material. Treated with a monopolar probe. Biopsied. - No gross lesions in the second portion of the duodenum. - Moderate Schatzki ring. Dilated. Recommendations : - Discharge patient to home. - Resume previous diet. - Continue present medications. - Use Pepcid (famotidine) 20 mg PO BID for 6 weeks. My findings are described in the full procedure note, which is enclosed. If I can be of further assistance, please feel free to contact me at . Sincerely, Buck Friend, 01/30/2023 7:46:12 AM This report has been signed electronically.
[2023-01-30 07:50] VITALS: BP 94/43; PULSE 72; RESP 16; O2SAT 99
[2023-01-30 07:55] VITALS: BP 94/42; PULSE 70; RESP 16; O2SAT 98
[2023-01-30 08:00] VITALS: BP 99/39; PULSE 68; RESP 16; O2SAT 100
--- NOTE | 2023-01-30 08:00 | IMM_PTH ---
PATIENT: CHRISTINA KUO LOC: EN U#:[id number] AGE/SX: 67/F ROOM: RE01/30/[address]: Dr. Buck Lerner DO : 1955 BED: DIS: 01/30/2023 SPEC #: [id number] RECD: 01/31/23 14:42 STATUS: CANELO REQ #: [id number] JAREK: 01/30/23 08:[address]: Buck Lerner DEPT: IMMUNOHISTOCHEMISTRY RECD BY: Yolanda Balbuena ENTERED: 01/31/23 14:43 SP TYPE: IMMUNO OTHR DR: Dr. Velia Archuleta MD Tissues: A - Stomach, NOS Procedures: H Pylori (initial) PHYSICIAN & INSTITUTION [place] [id number] SPECIMEN INFORMATION: Tissue Source: A - Gastric ulcer Clinical Info: Abdominal pain, HOFFMAN, chronic anemia Specimen Number: [id number] CPT code: 39275 METHODOLOGY: Deparaffinized sections of prefer/formalin-fixed tissue or PAP/DQ stained slides are incubated with monoclonal/polyclonal antibodies/oligonucleotide probes. Localization is made via biotin free immunoperoxidase method. Appropriate controls are performed and reacted as expected. Results on target cell population are indicated in the following table: RESULTS: ANTIBODY / CLONE RESULT Block A H Pylori (polyclonal) negative These tests were developed and their performance characteristics determined by [facility]. They may not have been cleared or approved by the U.S. Food and Drug Administration. The FDA has determined that such clearance or approval is not necessary. The above immunohistochemical/dualISH markers are ordered and reviewed by the Pathologist. INTERPRETATION: A. Gastric ulcer, biopsy: Negative for Helicobacter pylori organisms. AM/yanet 02/01/2023
--- NOTE | 2023-01-30 08:00 | EGD_PTH ---
PATIENT: CHRISTINA KUO LOC: EN U#:[id number] AGE/SX: 67/F ROOM: RE01/30/[address]: Dr. Buck Lerner DO : 1955 BED: DIS: 01/30/2023 SPEC #: [id number] RECD: 01/30/23 13:56 STATUS: CANELO LAURA #: [id number] JAREK: 01/30/23 08:[address]: Buck Lerner DEPT: SURGICAL PATHOLOGY RECD BY: Randi Antony ENTERED: 01/31/23 10:40 SP TYPE: EGD BIOPSY IAN DR: Dr. Velia Archuleta MD Tissues: A - Gastric mucous membrane B - Esophagus, NOS Procedures: Special Stain Group II Surgery Specimen Level IV Alcian Blue/PAS (control) HEADER OPERATION: EGD with biopsies PRE-OP DIAGNOSIS: Abdominal pain, HOFFMAN, chronic anemia TISSUE SUBMITTED: A - Gastric ulcer, B - Distal Esophagus MICROSCOPIC DIAGNOSIS A. Gastric ulcer, biopsy: Focal mucosal ulceration. Chronic gastritis. See comment. B. Distal esophagus, biopsy: Gastroesophageal junctional mucosa with mild chronic inflammation. No evidence of goblet cell metaplasia. See comment. AM:stephen 02/01/2023 COMMENT A. The results of immunohistochemistry for Helicobacter pylori will be reported separately ([id number]). B. Alcian blue/PAS stain with matched control supports the above diagnosis. MICROSCOPIC DESCRIPTION Slides are reviewed. GROSS DESCRIPTION A - Received in fixative is one container labeled with the patient's name and designated gastric ulcer. The specimen consists of multiple irregular fragments of light mccormack soft tissue that in aggregate measure 1.0 x 0.3 x 0.1 cm. The specimen is totally submitted in one cassette. B - Received in fixative is one container labeled with the patient's name and designated distal esophagus. The specimen consists of multiple irregular fragments of light mccormack soft tissue that in aggregate measure 1.0 x 0.5 x 0.1 cm. The specimen is totally submitted in one cassette. / AM:stephen 01/31/2023 TC:2 CPT: 14606 x2, 95995
[2023-01-30 08:05] VITALS: BP 114/53; PULSE 68; RESP 16; TEMP 36.9; O2SAT 100
[2023-01-30 08:06] LABS: Bedside Glucose 81 mg/dL (74-106)
== END 2023-01-30 08:37 | disposition home or self-care (01) ==
LOC: EN 06:50 → AC 06:50
PROVIDERS: PCP Internal Medicine; Referring Provider Internal Medicine; Visit Provider Internal Medicine Gastroenterology
PROC: 0DJ08ZZ Inspection of Upper Intestinal Tract, Via Natural or Artificial Opening Endoscopic (ICD-10-PCS; CPT 43235; principal; 2023-01-30 07:55)
DX: K29.50 Unspecified chronic gastritis without bleeding (principal); Z94.4 Liver transplant status; Z99.2 Dependence on renal dialysis; J44.9 Chronic obstructive pulmonary disease, unspecified; E11.22 Type 2 diabetes mellitus with diabetic chronic kidney disease; N18.6 End stage renal disease; E66.01 Morbid (severe) obesity due to excess calories; Z79.4 Long term (current) use of insulin; K22.2 Esophageal obstruction; K25.9 Gastric ulcer, unspecified as acute or chronic, without hemorrhage or perforation; R13.10 Dysphagia, unspecified; K44.9 Diaphragmatic hernia without obstruction or gangrene; D64.9 Anemia, unspecified; K21.00 Gastro-esophageal reflux disease with esophagitis, without bleeding; I12.9 Hypertensive chronic kidney disease with stage 1 through stage 4 chronic kidney disease, or unspecified chronic kidney disease; E07.9 Disorder of thyroid, unspecified; G47.30 Sleep apnea, unspecified; Z86.718 Personal history of other venous thrombosis and embolism; Z79.899 Other long term (current) drug therapy; Z79.82 Long term (current) use of aspirin
CPT/HCPCS: 43239; 43248; 43255; J7120; 82962; 88305; 88313; 88342; J7040; J2405

== ENCOUNTER 2023-02-03 11:56 | Emergency (ER) | payer MEDICARE, MEDICAID, SELFPAY ==
[2023-02-03 11:57] VITALS: BP 160/58; PULSE 79; RESP 18; TEMP 36.4; BMI 42.3
[2023-02-03 12:05] VITALS: PULSE 86; RESP 15; O2SAT 97
--- NOTE | 2023-02-03 12:21 | EKG12_ITS ---
Test Reason : DIZZINESS Blood Pressure : / mmHG Vent. Rate : 077 BPM Atrial Rate : 077 BPM P-R Int : 218 ms QRS Dur : 132 ms QT Int : 430 ms P-R-T Axes : 055 -40 070 degrees QTc Int : 486 ms Sinus rhythm with 1st degree A-V block Left axis deviation Left bundle branch block Abnormal ECG Confirmed by CHRISTAL FOFANA, ARMANDO ([id number]), material expeditor KATIE GREENE ([id number]) on 02/04/2023 10:59:04 AM Referred By: Confirmed By:ARMANDO SIEGEL MD
--- NOTE | 2023-02-03 12:21 | CT_ITS ---
INDICATION: Status post fall EXAMINATION: CT BRAIN - CT Head or Brain W/O Contrast Injection TECHNIQUE: Multiple axial images were obtained of the head without intravenous contrast. A radiation dose optimization technique was used for this scan. IV Contrast dosage and agent: None. RADIATION DOSAGE (If Supplied By Facility): CTDIvol = ( 44.99 ) mGy, DLP = ( 796.11 ) mGycm COMPARISON: No relevant prior comparison study available FINDINGS: BRAIN PARENCHYMA: No intra- or extra-axial hemorrhage. No evidence of acute infarct. No intracranial mass or mass effect. There is preservation of the kraus/white matter interface. Posterior fossa structures are unremarkable. CSF SPACES: Appropriate for age. No hydrocephalus. Basal cisterns are patent. CALVARIUM, SKULL BASE, PARANASAL SINUSES AND MASTOID AIR CELLS: Mild mucosal thickening of the left maxillary sinus. No discrete lytic or blastic abnormalities. ORBITS: Both globes, extraocular muscles, optic nerves and retrobulbar fat appear unremarkable. CT/Brain/Head without Contrast IMPRESSION: No acute intracranial process. Electronically Signed: David Bliss MD at 13:55 EST ,
--- NOTE | 2023-02-03 12:24 | EX.ED.DYSGE1 ---
HPI <BAILEY St - Last Filed: 02/03/23 15:03> History of Present Illness Chief Complaint: Dizziness Narrative Narrative: Patient is a obese 67-year-old female with multiple medical problems. Patient has history of Mora, liver transplant, kidney disease on dialysis Saturday, did go dialysis on Saturday, diabetes, obstructive sleep apnea, CHF, history of respiratory failure presents to the emergency department for multiple falls, generalized weakness, lightheadedness. Patient states this has been ongoing for the last 3 to 5 days. She has had multiple falls on Saturday and Saturday. On Saturday she did have a head injury, on and Saturday she states that the falls are minor, she did land on her knees however she denies any significant injury. Patient is not sure why she is falling so much her dizzy, she is here for evaluation. She denies any chest pain or new shortness of breath. PFS <BAILEY St - Last Filed: 02/03/23 15:03> [facility] Medical History (Updated 02/03/23 @ 16:[address] Carlton Greene, DO) Anemia Anemia in chronic kidney disease Back pain Blister Cancer Cardiology follow-up encounter Celiac disease Chronic kidney disease, stage 3 Chronic kidney failure Chronic renal failure, stage 5 Cirrhosis COPD (chronic obstructive pulmonary disease) Diabetes Dialysis patient DVT (deep venous thrombosis) ESRD (end stage renal disease) Gastric reflux GERD (gastroesophageal reflux disease) History of echocardiogram (~01/22/20) History of edema History of irregular heartbeat History of renal dialysis History of renal disease History of stress test (~12/07/19) History of uterine cancer Hx of Krueger's palsy Hypertension Infection involving suture with abscess Insulin dependent diabetes mellitus LIVER TRANSPLANT Non-smoker Osteoporosis Pancytopenia Sleep apnea Thyroid disease Uses wheelchair Walker as ambulation aid Wears dentures Wears glasses Home Medications ascorbic acid (vitamin C) 500 mg chewable tablet 1,000 mg PO DAILY supplement 02/20/15 [History Last Taken 09/09/19] cholecalciferol (vitamin D3) 25 mcg (1,000 unit) tablet 1,000 unit PO BID supplement 02/20/15 [History Last Taken 09/09/19] atorvastatin 10 mg tablet 10 mg PO QHS cholestrol 10/19/16 [History Last Taken 09/09/19] insulin glargine 100 unit/mL (3 mL) subcutaneous pen (Lantus Solostar U-100 Insulin) 34 unit subcut DAILY blood sugar 05/29/18 [History Last Taken 01/30/23] tacrolimus 1 mg capsule, immediate-release (Prograf) 0.5 mg PO BID REJECTION 09/10/19 [History Last Taken 04/27/21] vitamin B complex 1 tablet PO DAILY SUPPLEMENT 09/10/19 [History Last Taken 09/09/19] carvedilol 25 mg tablet 12.5 mg PO BID heart 02/25/20 [History Last Taken 01/30/23] hydroxyzine HCl 25 mg tablet 25 mg PO BID PRN Itching 05/23/20 [History Last Taken Unknown] ropinirole 1 mg tablet 1 mg PO DAILY restless legs 05/23/20 [History Last Taken 06/16/20] torsemide 20 mg tablet 60 mg PO DAILY FLUID 05/23/20 [History Last Taken Unknown] ropinirole 2 mg tablet,extended release 24 hr 2 mg PO QHS restless legs 06/10/20 [History Last Taken Unknown] sevelamer carbonate 800 mg tablet (Renvela) 1,600 mg PO .TID AC kidney disease 06/10/20 [History Last Taken Unknown] nitroglycerin 0.4 mg sublingual tablet 0.4 mg sublingual Q5M PRN Cardiac/Chest Pain #30 tabs 04/29/21 [Rx Last Taken Unknown] biotin 1 mg capsule 1 mg PO DAILY supplement 08/11/21 [History Last Taken Unknown] melatonin 3 mg tablet 10 mg PO QHS sleep 08/11/21 [History Last Taken Unknown] sertraline 50 mg tablet (Zoloft) 50 mg PO DAILY mood 08/11/21 [History Last Taken Unknown] albuterol sulfate 90 mcg/actuation aerosol inhaler 2 puff IH Q4H PRN PRN Sob &/Or Wheezing 30 days #8.6 grams 10/25/21 [Rx Last Taken Unknown] dicyclomine 20 mg tablet 20 mg PO TID PRN abdominal discomfort #20 tabs 10/25/21 [Rx Last Taken Unknown] diphenoxylate-atropine 2.5 mg-0.025 mg tablet (Lomotil) 1 tab PO TID PRN diarrhea #90 tabs 10/27/21 [Rx Last Taken 12/30/22] hydrocodone-acetaminophen 5-325mg 5mg-325mg 1 tab PO Q6H PRN PRN Pain 3 days #10 TABLETS 04/07/22 [Rx Last Taken Unknown] apremilast 30 mg tablet (Otezla) 30 mg PO DAILY 09/08/22 [History Last Taken Unknown] insulin aspart U-100 100 unit/mL (3 mL) subcutaneous pen (Novolog FlexPen U-100 Insulin aspart) 10 unit subcut TID 09/08/22 [History Last Taken Unknown] gabapentin 100 mg capsule 200 mg PO QHS 12/31/22 [History Last Taken Unknown] levothyroxine 88 mcg tablet 88 mcg PO DAILY 12/31/22 [History Last Taken 01/30/23] midodrine 10 mg tablet 10 mg PO MOWEFR 12/31/22 [History Last Taken Unknown] sucralfate 1 gram tablet (Carafate) 1 g PO BID #30 tabs 12/31/22 [Rx Last Taken Unknown] trazodone 100 mg tablet 200 mg PO QHS 12/31/22 [History Last Taken Unknown] pantoprazole 40 mg tablet,delayed release 40 mg PO BID #60 tabs 01/08/23 [Rx Last Taken Unknown] aspirin 81 mg tablet,delayed release (Adult Aspirin Regimen) 81 mg PO DAILY 01/28/23 [History Last Taken 01/26/23] omega [id number] oil 1,200 mg (144 mg-216 mg) capsule (Fish Oil) 1 cap PO DAILY SUPPLEMENT 01/28/23 [History Last Taken Unknown] famotidine 20 mg tablet 20 mg PO Q12H 6 weeks #84 tabs 01/30/23 [Rx Last Taken Unknown] Allergy/AdvReac Type Severity Reaction Status Date / Time amlodipine [From Norvasc] Allergy Severe Hives Verified 02/03/23 11:57 ampicillin sodium Allergy Severe Hives Verified 02/03/23 11:57 [From Unasyn] buspirone HCl [From BuSpar] Allergy Severe Hives Verified 02/03/23 11:57 cefadroxil [From Duricef] Allergy Severe Hives Verified 02/03/23 11:57 lisinopril Allergy Severe Swelling Verified 02/03/23 11:57 naproxen Allergy Severe Hives Verified 02/03/23 11:57 niacin Allergy Severe Hives Verified 02/03/23 11:57 [From Niaspan Extended-Release] sulbactam sodium Allergy Severe Hives Verified 02/03/23 11:57 [From Unasyn] Sulfa (Sulfonamide Allergy Severe Hives Verified 02/03/23 11:57 Antibiotics) cephalexin [From Keflex] Allergy Vomiting Verified 02/03/23 11:57 omeprazole AdvReac Severe Other Verified 02/03/23 11:57 losartan AdvReac Swelling Verified 02/03/23 11:57 Family History Mother Diabetes Anemia Father Hypertension LUNG/RESPIRATORY DISEASE Surgical History History of appendectomy History of cardiac catheterization History of cholecystectomy History of coronary artery stent placement History of left knee surgery History of left salpingo-oophorectomy History of liver transplant History of radical hysterectomy History of ventral hernia repair S/P arteriovenous (AV) fistula creation (~06/16/20) Social History housing: apartment current occupational status: disabled Smoking Status: Never smoker substance use type: does not use ROS <BAILEY St - Last Filed: 02/03/23 15:03> ROS ED ROS Narrative Constitutional: Negative for fever, chills, weight loss. Positive for generalized weakness Eyes: Negative for vision loss, vision change, double vision ENT: Negative for any sore throat, ear pain, congestion Cardiovascular: Negative for any chest pain, tightness, palpitations Respiratory: Negative for any cough, sputum production, hemoptysis, dyspnea on exertion, orthopnea. Positive for chronic dyspnea Gastrointestinal: Negative for any abdominal pain, nausea, vomiting, diarrhea, constipation, blood in stool, blood in vomit : Negative for any urinary frequency, dysuria, retention, blood in urine Muscle skeletal: Negative for any myalgias, arthralgias, neck pain, back pain Neurological: Negative for any syncope, numbness or tingling. Positive for headache, feeling of dizziness which she described as lightheadedness, difficulty gaining balance Skin: Negative for any rashes, lumps, itching, abrasions, lacerations Psychiatric: Negative for any depression, anxiety, stress, suicidal ideation, homicidal ideation Hematologic: Negative for any easy bruising, excessive bruising, easy bleeding Allergies: Negative for any eczema, hives, rash EXAM <Ryan LemaBAILEY quiroz - Last Filed: 02/03/23 15:03> Physical Exam Narrative Exam Narrative: Vital signs reviewed. HEET: Head normocephalic atraumatic, TMs clear bilaterally. Posterior pharynx is clear, dry mucous membranes. Nares clear bilaterally. Pupils are equal round reactive to light, negative for any hemotympanum, negative for any septal hematoma. Patient does have pain on palpation to the occiput. No significant hematoma felt. Neck: Supple with no lymphadenopathy or tenderness. No signs of meningismus. Cardiac: Regular rate and rhythm no murmurs gallops or rubs, equal peripheral pulses bilaterally. Respiratory: Lungs clear to auscultation bilaterally. Right upper chest tenderness, slight bruising which appears old Abdomen: Soft, nontender, nondistended. No abdominal bruit or pulsatile masses. No hepatosplenomegaly Extremities: No peripheral edema, no signs of gross trauma or deformity. Active full range of motion of all extremities. Neuro: Cranial nerves II through XII intact, no focal neurological deficits. NIH stroke scale 0. Negative for any nystagmus. Skin: Clean dry and intact with no rash, purpura, petechiae, vesicles or pustules. Backs/flank: No CVA tenderness, no midline spinal tenderness, no deformity. Psych: Normal mood and affect. No SI, HI or acute psychosis. Const Vital Signs: 02/03/23 11:57 02/03/23 12:05 02/03/23 12:06 Temperature 97.5 F L Temperature Source Temporal Pulse Rate 79 86 Respiratory Rate 18 15 Respiratory Effort Normal Non-Labored Respiratory Pattern Normal Blood Pressure 160/58 H Blood Pressure Mean 92 Pulse Ox 97 Oxygen Delivery Method Room Air Room Air 02/03/23 12:57 Temperature Temperature Source Pulse Rate Respiratory Rate Respiratory Effort Respiratory Pattern Blood Pressure Blood Pressure Mean Pulse Ox Oxygen Delivery Method Room Air <Dr. Carlton Greene, - Last Filed: 02/03/23 16:00> Physical Exam Const Vital Signs: 02/03/23 11:57 02/03/23 12:05 02/03/23 12:06 Temperature 97.5 F L Temperature Source Temporal Pulse Rate 79 86 Respiratory Rate 18 15 Respiratory Effort Normal Non-Labored Respiratory Pattern Normal Blood Pressure 160/58 H Blood Pressure Mean 92 Pulse Ox 97 Oxygen Delivery Method Room Air Room Air 02/03/23 12:57 Temperature Temperature Source Pulse Rate Respiratory Rate Respiratory Effort Respiratory Pattern Blood Pressure Blood Pressure Mean Pulse Ox Oxygen Delivery Method Room Air MDM <LAURIE StC - Last Filed: 02/03/23 15:03> [facility] Lab Data Labs: Laboratory Results - last 24 hr 02/03/23 12:45 WBC 2.5 L RBC 2.53 L Hgb 7.7 L Hct 25.5 L MCV 100.8 H MCH 30.4 MCHC 30.2 L RDW Std Deviation 70.0 H RDW Coeff of Tami 19.2 H Plt Count 65 L MPV 9.7 Immature Gran % (Auto) 0.800 Neut % (Auto) 71.4 H Lymph % (Auto) 15.3 L Bell % (Auto) 6.9 Eos % (Auto) 5.2 H Baso % (Auto) 0.4 Absolute Neuts (auto) 1.8 L Absolute Lymphs (auto) 0.38 L Nucleated RBC % 0 Differential Comment SCANNED Diff Path Review May foll Platelet Estimate MKD DEC Hypochromasia 1+ Anisocytosis 2+ Microcytosis 1+ Macrocytosis 1+ Sodium 137 Potassium 4.3 Chloride 100 Carbon Dioxide 32.0 Anion Gap 5 BUN 37 H Creatinine 6.91 H Estim Creat Clear Calc 7.30 Est GFR (MDRD) Af Amer 8 L Est GFR (MDRD) Non-Af 6 L BUN/Creatinine Ratio 5.4 L Glucose 121 H Calcium 8.9 Total Bilirubin 0.50 Direct Bilirubin 0.15 AST 15 ALT 23 Alkaline Phosphatase 109 Troponin I High Sens 17 Total Protein 6.5 Albumin 2.8 L Globulin 3.7 Radiography Diagnostic Testing: Clinical Impression(s) from Imaging Studies Brain CT 02/03/23 12:21 IMPRESSION: No acute intracranial process. Electronically Signed: David Bliss MD at 13:55 EST , Chest X-Ray 02/03/23 13:14 IMPRESSION: No radiographic evidence of acute cardiopulmonary disease. Electronically Signed: David Bliss MD at 13:56 EST , EKG Sinus rhythm first-degree AV block: Attestation: I personally reviewed and interpreted this EKG as follows: Comments: Sinus rhythm, first-degree AV block, rate of 77 bpm, DE interval 218 ms, QRS duration 132 ms, no acute ST elevation, no acute infarct noted Treatment and Re-Evaluation :: Patient appears to be in no obvious respiratory distress, vital signs are stable. Presenting to the emergency department with complaints of a feeling of lightheadedness, dizziness, feeling not balance, multiple falls and weakness. Differential diagnosis includes viral-like illness, intracranial abnormality, electrolyte abnormality, anemia. Patient received multiple laboratory studies as well as a CT scan of the brain. Chest x-ray, urinalysis concerning for any UTI. Patient's CBC does show chronic anemia with a hemoglobin of 7.7, hematocrit of 25.5. Patient's creatinine is 6.9 this is baseline, patient does have tomorrow for dialysis. Patient's troponin was 17. Patient's COVID-19, influenza was negative. Patient's chest x-ray shows no radiographic evidence of acute cardiopulmonary disease. Patient CT scan shows no acute process. At this time, patient was able to ambulate around the department, patient states she did feel better, she feels back to her baseline. At this time, do not believe that there is any acute process, she needs to follow-up with her dialysis, and continue her iron transfusions. All questions are answered, patient instructed to return for any worsening symptoms. Patient is happy with the plan of care, stable for discharge <Dr. Carlton Greene, DO - Last Filed: 02/03/23 16:00> [facility] Narrative Medical decision making narrative: I have personally performed a face to face assessment of the patient and have reviewed the ROSA Note. I performed a substantive portion of the visit including all aspects of the following. My zimmerman findings include: History: Patient presents with dizziness and falls that has been getting worse over the last 5 days. Patient states she had an endoscopy done 5 days ago and her symptoms began after that. Patient states she feels lightheaded. Patient states she fell 3 times over the past 3 days. Patient states that her she has been having pain in her knees which has been causing her to fall. Patient states she did hit her head the first time she fell. Patient denies any fevers or chills. Patient admits to some nausea but denies any vomiting. Exam: Vital signs are stable except for mildly elevated blood pressure 160/58. Patient is afebrile. Patient is in no acute distress. Oral mucosa is pink and moist. Neck is supple. Trachea is midline. There is no JVD. Heart was regular rate and rhythm. Lungs are clear and equal bilaterally. Abdomen is soft. Bowel sounds are normal. There is no tenderness. There is no distention. Cranial nerves II through XII are intact. There are no focal motor or sensory deficits noted. Medical Decision Making: Differential diagnosis includes intracranial bleeding, closed head injury, anemia, electrolyte abnormality, cardiac dysrhythmia, cardiac ischemia, urinary tract infection, pneumonia, and viral infection. CT scan of the brain will be obtained to assess for intracranial bleeding. Chest x-ray will be obtained to assess for pneumonia and pneumothorax. EKG will be obtained to assess for cardiac dysrhythmia and cardiac ischemia. CBC will be obtained to assess for leukocytosis and anemia. Basic metabolic profile will be obtained to assess for electrolyte abnormality and renal function. Hepatic profile will be obtained to assess for hepatic function. High-sensitivity troponin will be obtained to assess for cardiac ischemia. Urinalysis will be obtained to assess for urinary tract infection. CBC was reviewed. White blood cell count was slightly low at 2.5. Hemoglobin was low at 7.7 and hematocrit was 25 point spine. These are stable compared to previous results. Platelet count was slightly low at 65. This is also stable compared to previous results. Basic metabolic profile was reviewed. BUN was 37 and creatinine was 6.91. This is consistent with prior results. Hepatic profile was reviewed and was within normal limits. COVID-19 rapid antigen was reviewed and was negative. Influenza A and influenza B antigens were reviewed and were negative. CT scan of the brain was obtained. There is no acute intracranial abnormality. This was interpreted by the radiologist and was also independently reviewed by myself. PA and lateral chest x-ray was obtained. There are 2 views. On my independent interpretation, lung gagnon are clear. There is normal cardiac silhouette. Bony thorax is normal. There is no acute process noted. Radiologist also interpreted the x-ray and agrees. Patient was advised of her findings. Patient was able to ambulate here in the emergency department. Patient was instructed to follow-up with her primary care physician in 5 to 7 days. Patient understood and was agreeable with the plan. All questions were answered. Lab Data Attestation: I reviewed the patient's lab results. Labs: Laboratory Results - last 24 hr 02/03/23 12:45 WBC 2.5 L RBC 2.53 L Hgb 7.7 L Hct 25.5 L MCV 100.8 H MCH 30.4 MCHC 30.2 L RDW Std Deviation 70.0 H RDW Coeff of Tami 19.2 H Plt Count 65 L MPV 9.7 Immature Gran % (Auto) 0.800 Neut % (Auto) 71.4 H Lymph % (Auto) 15.3 L Bell % (Auto) 6.9 Eos % (Auto) 5.2 H Baso % (Auto) 0.4 Absolute Neuts (auto) 1.8 L Absolute Lymphs (auto) 0.38 L Nucleated RBC % 0 Differential Comment SCANNED Diff Path Review May foll Platelet Estimate MKD DEC Hypochromasia 1+ Anisocytosis 2+ Microcytosis 1+ Macrocytosis 1+ Sodium 137 Potassium 4.3 Chloride 100 Carbon Dioxide 32.0 Anion Gap 5 BUN 37 H Creatinine 6.91 H Estim Creat Clear Calc 7.30 Est GFR (MDRD) Af Amer 8 L Est GFR (MDRD) Non-Af 6 L BUN/Creatinine Ratio 5.4 L Glucose 121 H Calcium 8.9 Total Bilirubin 0.50 Direct Bilirubin 0.15 AST 15 ALT 23 Alkaline Phosphatase 109 Troponin I High Sens 17 Total Protein 6.5 Albumin 2.8 L Globulin 3.7 Radiography Diagnostic Testing: Clinical Impression(s) from Imaging Studies Brain CT 02/03/23 12:21 IMPRESSION: No acute intracranial process. Electronically Signed: David Bliss MD at 13:55 EST , Chest X-Ray 02/03/23 13:14 IMPRESSION: No radiographic evidence of acute cardiopulmonary disease. Electronically Signed: David Bliss MD at 13:56 EST , Discharge Plan Triage Chief Complaint: Dizziness ED Midlevel Provider: Ryan Barajas ED Provider: Carlton Greene Dx/Rx/DC Orders Clinical Impression: CHI (closed head injury), At high risk for falls, Anemia in chronic illness, ESRD (end stage renal disease), Pancytopenia Instructions: Anemia and Kidney Disease, Concussion Dc Prescriptions: No Action hydroxyzine HCl 25 mg tablet 25 mg PO BID PRN (Reason: Itching) pantoprazole 40 mg tablet,delayed release (DR/EC) 40 mg PO BID Qty: 60 2RF ascorbic acid (vitamin C) 500 MG tablet,chewable 1,000 mg PO DAILY Patient Comments: supplement cholecalciferol (vitamin D3) 1,000 UNIT tablet 1,000 unit PO BID Patient Comments: bone health atorvastatin 10 MG tablet 10 mg PO QHS insulin glargine [Lantus Solostar U-100 Insulin] 100 UNIT/ML insulin pen 34 unit subcut DAILY Hold Instructions: until follow up with pcp your blood sugars have been low while in hospital ropinirole 1 mg tablet 1 mg PO DAILY tacrolimus [Prograf] 1 MG capsule 0.5 mg PO BID vitamin B complex 1 EACH tablet 1 tablet PO DAILY torsemide 20 mg tablet 60 mg PO DAILY carvedilol 25 MG tablet 12.5 mg PO BID sevelamer carbonate [Renvela] 800 MG tablet 1,600 mg PO .TID AC ropinirole 2 MG tablet extended release 24 hr 2 mg PO QHS nitroglycerin 0.4 mg Tablet, Sublingual 0.4 mg sublingual Q5M PRN (Reason: Cardiac/Chest Pain) Qty: 30 0RF sertraline [Zoloft] 50 MG tablet 50 mg PO DAILY Patient Comments: depression biotin 1 mg Capsule 1 mg PO DAILY melatonin 3 mg Tablet 10 mg PO QHS dicyclomine 20 mg tablet 20 mg PO TID PRN (Reason: abdominal discomfort) Qty: 20 0RF albuterol sulfate 1 PUFF inhaler 2 puff IH Q4H PRN PRN (Reason: Sob &/Or Wheezing) 30 Days Qty: 8.6 0RF hydrocodone-acetaminophen [hydrocodone-acetaminophen] 1 TABLET tablet 1 tab PO Q6H PRN PRN (Reason: Pain) 3 Days Qty: 10 0RF Otezla 30 mg tablet 30 mg PO DAILY insulin aspart U-100 [Novolog FlexPen U-100 Insulin] 100 unit/mL (3 mL) insulin pen 10 unit subcut TID levothyroxine 88 mcg tablet 88 mcg PO DAILY trazodone 100 mg tablet 200 mg PO QHS gabapentin 100 mg capsule 200 mg PO QHS Patient Comments: TAKE 2 CAPSULES BY MOUTH AT BEDTIME midodrine 10 mg tablet 10 mg PO MOWEFR Patient Comments: TAKE 1 TABLET BY MOUTH THREE DAYS (TIMES) A WEEK ON MON, WED & FRI BEFORE DIALYSIS sucralfate [Carafate] 1 gram tablet 1 g PO BID Qty: 30 0RF omega [id number]-fish oil [Fish Oil] 1,200 (144-216) mg capsule 1 cap PO DAILY Patient Comments: LAST DOSE 01/26 aspirin [Adult Aspirin Regimen] 81 mg tablet,delayed release (DR/EC) 81 mg PO DAILY Patient Comments: LAST DOSE 01/26 famotidine 20 mg tablet 20 mg PO Q12H 42 Days Qty: 84 2RF diphenoxylate-atropine [Lomotil] 2.5-0.025 mg tablet 1 tab PO TID PRN (Reason: diarrhea) Qty: 90 2RF Primary Care Provider: Velia Archuleta Referrals: Velia Archuleta MD [Primary Care Provider] - Activity Restrictions/Additional Instructions: Please return for any worsening symptoms. Keep your dialysis appointment tomorrow Disposition Disposition: Home, Self Care Discharge Date/Time: 02/03/23 15:26
[2023-02-03 13:00] LABS: Absolute Lymphocyte Count 0.38 X10^3/uL (0.83-4.51); Absolute Neutrophil Count 1.8 X10^3/uL (2.0-7.7); Basophil# 0.01 X10^3/uL; Basophil% 0.4 % (0-1); Eosinophil# 0.13 X10^3/uL; Eosinophils% 5.2 % (0-5); Hematocrit 25.5 % (37-47); Hemoglobin 7.7 g/dL (12.0-15.0); Lymphocyte # 0.38 X10^3/ul (0.83-4.51); Lymphocyte % 15.3 % (19-41); Mean Corp Hgb Conc 30.2 g/dL (32-36); Mean Corpuscular Hgb 30.4 pg (27.0-32.0); Mean Corpuscular Volume 100.8 fL (81-99); Mean Platelet Vol. 9.7 fl (6.2-12.0); Monocyte# 0.17 X10^3/uL; Monocyte% 6.9 % (0-10); NRBC Flagged by Analyzer 0 % (0-5); Neutrophil # 1.77 X10^3/uL (2.7-7.7); Neutrophil % 71.4 % (47-70); POSITIVE COUNT YES; POSITIVE DIFFERENTIAL YES; POSITIVE MORPHOLOGY YES; Platelet Count 65 K/mm3 (150-450); RBC Distribution Width CV 19.2 % (11.6-14.6); Red Blood Count 2.53 M/mm3 (4.2-5.4); White Blood Count 2.5 K/mm3 (4.4-11.0)
[2023-02-03 13:01] LABS: Differential Indicated SCAN CRITERIA MET
--- NOTE | 2023-02-03 13:14 | RAD_ITS ---
INDICATION: chest pain EXAMINATION/TECHNIQUE: X-RAY - XR Chest 2 Views COMPARISON: Prior study dated: 04/18/2022. FINDINGS: LINES/DEVICES: None. LUNGS: No consolidation, edema or effusion. No pneumothorax. MEDIASTINUM AND CARDIOVASCULAR STRUCTURES: Cardiac silhouette not enlarged. Central airways and mediastinal contour are unremarkable. BONES AND SOFT TISSUES: Unremarkable. RAD/Chest PA and Lateral IMPRESSION: No radiographic evidence of acute cardiopulmonary disease. Electronically Signed: David Bliss MD at 13:56 EST ,
[2023-02-03 13:16] LABS: AST(SGOT) 15 U/L (15-37); Alanine Aminotransfer ALT/SGPT 23 U/L (13-56); Albumin, Serum 2.8 g/dL (3.2-5.0); Alkaline Phosphatase 109 U/L (45-117); Anion Gap 5 (5-15); BUN 37 mg/dL (7-18); BUN/Creat Ratio 5.4 RATIO (10-20); Bilirubin, Direct 0.15 mg/dL (0.00-0.30); Calcium,Total 8.9 mg/dL (8.5-10.1); Chloride 100 mmol/L (98-107); Creatinine, Serum 6.91 mg/dL (0.55-1.02); EST Glomerular Filtration Rate 6 mL/min (>60); Est Glom Filt Rate - Afr Amer 8 mL/min (>60); Globulin 3.7 g/dL (2.2-4.2); Glucose 121 mg/dL (74-106); Potassium 4.3 mmol/L (3.5-5.1); Protein, Total 6.5 g/dL (6.4-8.2); Sodium Level 137 mmol/L (136-145); Troponin-I HS (w/2H Reflex) 17 pg/mL (3.0-54.0)
[2023-02-03 13:26] LABS: Anisocytosis 2+; Differential Comment SCANNED; Hypochromasia 1+; Macrocytosis 1+; Microcytosis 1+; Platelet Estimate MKD DEC (ADEQ)
[2023-02-03 14:50] LABS: Reflex Troponin-HS? (from REC) Y
[2023-02-04 13:44] LABS: Pathologist Review Reviewed
== END 2023-02-03 15:26 | disposition home or self-care (01) ==
PROVIDERS: Nurse Practitioner; Emergency Provider Emergency Medicine; PCP Internal Medicine; Visit Provider Emergency Medicine
DX: S09.90XA Unspecified injury of head, initial encounter (principal); D61.818 Other pancytopenia; J44.9 Chronic obstructive pulmonary disease, unspecified; E11.22 Type 2 diabetes mellitus with diabetic chronic kidney disease; N18.6 End stage renal disease; D63.1 Anemia in chronic kidney disease; E66.9 Obesity, unspecified; G47.33 Obstructive sleep apnea (adult) (pediatric); Z99.81 Dependence on supplemental oxygen; W19.XXXA Unspecified fall, initial encounter; Z86.718 Personal history of other venous thrombosis and embolism
CPT/HCPCS: 70450; 71046; 80048; 80076; 84484; 85025; 87428; 93005; 99284

== ENCOUNTER → 2023-02-14 | Outpatient (CLI) | payer MEDICARE, MEDICAID, SELFPAY ==
--- NOTE | 2023-02-14 08:25 | RAD_ITS ---
STUDY: X-RAY - ESOPHAGUS (BARIUM SWALLOW) WITH FLUOROSCOPY REASON FOR EXAM: Female, 67 years old. Cervical dysphagia to solid food TECHNIQUE: 15 view(s) of the esophagus were obtained following swallowing of barium. FLUOROSCOPY TIME (if supplied): (38 seconds) minutes/seconds. 18.38 mCi COMPARISON: Comparison is made with prior examination dated September 13, 2017. FINDINGS: There is no demonstrated esophageal foreign body. There is no demonstrated stricture or mucosal abnormality. Normal gastroesophageal junction, without a demonstrated hiatal hernia. The patient ingested a 12 mm tablet of barium. The tablet is trapped at the gastroesophageal junction. Normal visualized aortic arch and descending thoracic aorta. Normal visualized pulmonary parenchyma. Normal visualized osseous structures of the thorax. RAD/Esophagus Dual Contrast IMPRESSION: The ingested 12 mm tablet of barium is trapped at the gastroesophageal junction. Electronically Signed: Naren Boston MD at 13:18 EST ,
== END | disposition home or self-care (01) ==
PROVIDERS: PCP Internal Medicine; Referring Provider Internal Medicine; Visit Provider Internal Medicine
DX: R13.10 Dysphagia, unspecified (principal)
CPT/HCPCS: 74221

== ENCOUNTER 2023-02-22 09:14 | Day surgery (SDC) | payer MEDICARE, MEDICAID, SELFPAY ==
[2023-02-22 09:34] VITALS: BP 152/57; PULSE 80; RESP 95; TEMP 36.7; O2SAT 16
[2023-02-22] MEDS: Lidocaine Jelly 2% 20 ML Syringe (URO-JET) 1 APPLIC (09:36)
== END 2023-02-22 10:04 | disposition home or self-care (01) ==
LOC: EN 09:15
PROVIDERS: PCP Internal Medicine; Referring Provider Internal Medicine; Visit Provider Internal Medicine Gastroenterology
PROC: F00ZJWZ Instrumental Swallowing and Oral Function Assessment using Swallowing Equipment (ICD-10-PCS; CPT 43235; principal; 2023-02-22 09:25)
DX: R13.10 Dysphagia, unspecified (principal)
CPT/HCPCS: 91010

== ENCOUNTER 2023-03-24 19:59 | Inpatient (IN) | payer MEDICARE, MEDICAID, SELFPAY ==
[2023-03-24 20:00] VITALS: BP 140/50; PULSE 77; RESP 20; TEMP 36.9; O2SAT 100; BMI 41.1
--- OUTSIDE RECORDS SUMMARY | 2023-03-24 20:31 | XMS RPT_ITS | CCD ---
Author Name Unknown Address [address] [place] [address] Organization [facility] Care Team Providers Care Data Review Specialist Name Role Phone Geremias FOFANA, Jame Primary Care Provider Unavailab [facility], Kim Unavailable Vaughn Reeves RN Unavailable Unavailable Dao FOFANA, Jayamiletkash Unavailable Alicia FOFANA, Vicente Armenta Unavailable Spencer RN, Roxie Unavailable Jame Hunt MD Primary Care Provider Unavailab [facility], Kim Unavailable Vaughn Reeves RN Unavailable Unavailable Dao FOFANA, Jayaprakash Unavailable Alicia FOFANA, Vicente Armenta Unavailable Dasha Colvin RN Unavailable Unavailable Geremias FOFANA, Jame Primary Care Provider Dao FOFANA, Jajoeprakash R Unavailable Paul PICKETT, Sienna Jara Unavailable Unavailhunter Dc MD, Jayaprakash R Unavailable Paul PICKETT, Sienna Jara Unavailable Unavailhunter Palmer RN, Roxie Unavailable Lizeth Bey MD Unavailable GANTA, JAME Attending Unavailable GANTA, JAME Primary Care Unavailable GANTA, JAME Primary Care Unavailable OLDER, SILVA Attending Unavailable GANTA, JAME Primary Care Unavailable OLDER, SILVA Referring Unavailable GANTA, JAME Primary Care Unavailable GANTA, JAME Primary Care Unavailable RAMIN MACK Attending Unavailable GANTA, JAME Referring Unavailable GANTA, JAME Primary Care Unavailable GANTA, JAME Primary Care Unavailable DESMOND, MYLES Referring Unavailable GANTA, JAME Primary Care Unavailable GANTA, JAME Primary Care Unavailable GANTA, JAME Primary Care Unavailable OLDER, SILVA Attending Unavailable OLDER, SILVA Attending Unavailable GANTA, JAME Primary Care Unavailable OLDER, SILVA Attending Unavailable GANTA, JAME Primary Care Unavailable GANTA, JAME Primary Care Unavailable GANTA, JAME Primary Care Unavailable DESMOND, MYLES Referring Unavailable OLDER, SILVA Attending Unavailable GANTA, JAME Primary Care Unavailable GANTA, JAME Primary Care Unavailable OLDER, SILVA Referring Unavailable GANTA, JAME Primary Care Unavailable GANTA, JAME Primary Care Unavailable RUTHIE, ZIAD Referring Unavailable GANTA, JAME Primary Care Unavailable RUTHIE, ZIAD Referring Unavailable GANTA, JAME Primary Care Unavailable RUTHIE, ZIAD Referring Unavailable GANTA, JAME Primary Care Unavailable ANNETTE NUNES Attending Unavailable RUTHIE, ZIAD Referring Unavailable GANTA, JAME Primary Care Unavailable RUTHIE, ZIAD Referring Unavailable GANTA, JAME Primary Care Unavailable OLDER, ERIN Attending Unavailable GANTA, JAME Primary Care Unavailable OLDER, ERIN Referring Unavailable GANTA, JAME Primary Care Unavailable DAO, JAYAPRAKASH R Referring Unavailabl e GANTA, JAME Primary Care Unavailable OLDER, SILVA Attending Unavailable GANTA, JAME Primary Care Unavailable OLDER, SILVA Referring Unavailable GANTA, JAME Primary Care Unavailable YESICA PELLETIER Attending Unavailable OLDER, SILVA Referring Unavailable GANTA, JAME Primary Care Unavailable CHARBEL ESPARZA Attending Unavailable OLDER, ERIN Referring Unavailable GANTA, JAME Primary Care Unavailable DAO, JAYAPRAKASH R Referring Unavailabl e GANTA, JAME Primary Care Unavailable RUTHIE, ZIAD Referring Unavailable GANTA, JAME Primary Care Unavailable KARLOS, AMADEO Referring Unavailable GANTA, JAME Primary Care Unavailable GANTA, JAME Primary Care Unavailable GANTA, JAME Primary Care Unavailable GANTA, JAME Primary Care Unavailable RAMIN MACK Referring Unavailable OLDER, SILVA Referring Unavailable GANTA, JAME Primary Care Unavailable GANTA, JAME Primary Care Unavailable OLDER, SILVA Referring Unavailable FATICA, KEL Referring Unavailable KARLOS, AMADEO Attending Unavailable GANTA, JAME Primary Care Unavailable DAO, JAYAPRAKASH R Referring Unavailabl e GANTA, JAME Primary Care Unavailable MARÍA, KEL Referring Unavailable LIZETH BEY Attending Unavailable GANTA, JAME Primary Care Unavailable OLDER, SILVA Referring Unavailable [facility], JAME Primary Care Unavailable [facility], JAME Primary Care Unavailable [facility], JAME Primary Care Unavailable [facility], [facility] Primary Care Unavailable SILVA PLASENCIA Attending Unavailable Allergies Allergy Classification Reported Allergen(s) Allergy Type Date of Onset Reaction(s) Facility (20 sources) Ampicillin / Sulbactam; Translations: [AMPICILLIN-SULB ACTAM] Drug Allergy 8 [facility] (20 sources) busPIRone; Translations: [BUSPIRONE HCL] Drug Allergy 8 [facility] (20 sources) Cefadroxil; Translations: [CEFADROXIL] Drug Allergy 8 [facility] (20 sources) Cephalexin; Translations: [CEPHALEXIN] Drug Allergy 9 [facility] (20 sources) Clindamycin; Translations: [CLINDAMYCIN] Drug Allergy 9 Vomiting [facility] (20 sources) Lisinopril; Translations: [LISINOPRIL] Drug Allergy 5 [facility] (20 sources) Losartan; Translations: [LOSARTAN] Drug Allergy 8 [facility] Work Phone: (20 sources) Naproxen; Translations: [NAPROXEN] Drug Allergy 5 Other: See [facility] (20 sources) Niacin; Translations: [NIACIN] Drug Allergy 9 [facility] (20 sources) Sulfonamides (Antibiotic); Translations: [SULFA (SULFONAMIDE ANTIBIOTICS)] Drug Intolerance 5 [facility] (11 sources) amLODIPine; Translations: [AMLODIPINE] Drug Allergy 8 [facility] (11 sources) busPIRone; Translations: [BUSPIRONE] Drug Allergy 9 [facility], [facility] (11 sources) Doxylamine; Translations: [DOXYLAMINE SUCCINATE] Drug Allergy 3 [facility] (11 sources) Omeprazole; Translations: [OMEPRAZOLE] Drug Allergy 8 Other: See Comments [facility] (11 sources) Sulbactam; Translations: [SULBACTAM] Drug Allergy 9 Hives [facility] (11 sources) traMADol; Translations: [TRAMADOL] Drug Allergy 3 Vomiting [facility] Medications Current Medications Medication Drug Class(es) Dates Sig (Normalized) Sig (Original) clopidogrel 75 mg oral tablet (20 sources) [id number] Platelet Inhibitor Start: 04-27-2021 End: 06-13-2023 take 1 tablet by mouth once daily clopidogrel (PLAVIX) 75 mg tablet Take 1 tablet by mouth once daily. 90 tablet 3 06/13/2022 06/13/2023 Active Completed/Discontinued Medications Medication Drug Class(es) Dates Sig (Normalized) Sig (Original) + Nebulizer Supplies (20 sources) Start: 02-19-2017 + Nebulizer Supplies Indications: Wheezing Nebulizer, Mask, & O2 Tubing. Use as directed. 1 Each 02/19/2017 Active Problems Active Problems Problem Classification Problem Date Documented Da te Episodic/Chronic Abdominal pain (4 sources) Pain in pelvis; Translations: [Pelvic and perineal pain] Episodic Acute and unspecified renal failure (1 source) Unspecified kidney failure; Translations: [Renal failure, unspecified chronicity] Onset: 07-12-2022 Chronic Allergic reactions (3 sources) Inflammatory dermatosis; Translations: [Dermatitis, unspecified] Episodic Chronic kidney disease (20 sources) Anemia in chronic kidney disease stage 4; Translations: [Chronic kidney disease, stage 4 (severe)] Onset: 12-11-2016 01-07-2020 Chronic Coronary atherosclerosis and other heart disease (20 sources) Coronary atherosclerosis; Translations: [Atherosclerotic heart disease of [place] coronary artery without angina pectoris] Onset: 12-13-2020 04-04-2021 Chronic Deficiency and other anemia (2 sources) Anemia in chronic kidney disease; Translations: [Anemia in stage 4 chronic kidney disease (HCC) (HCC)] Onset: 12-17-2016 Chronic Diabetes mellitus with complications (1 source) Type 2 diabetes mellitus with hyperosmolarity without nonketotic hyperglycemic-hyperos molar coma ([facility]); Translations: [Type 2 diabetes mellitus with hyperosmolarity 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, with long-term current use of insulin (HCC)] Onset: 02-28-2021 Chronic Diabetes mellitus without complication (20 sources) Type 2 diabetes mellitus; Translations: [Type 2 diabetes mellitus without complications] Onset: 12-21-2014 02-27-2021 Chronic Disorders of lipid metabolism (1 source) Mixed hyperlipidemia; Translations: [Mixed hyperlipidemia] Chronic Essential hypertension (20 sources) Hypertensive disorder; Translations: [Essential (primary) hypertension] Onset: 12-21-2014 02-27-2021 Chronic Fever of unknown origin (1 source) Fever; Translations: [Fever, unspecified] Episodic Fluid and electrolyte disorders (1 source) Hyperkalemia; Translations: [Hyperkalemia] Episodic Genitourinary symptoms and ill-defined conditions (1 source) Hematuria, unspecified; Translations: [Hematuria, unspecified type] Onset: 02-20-2023 Episodic Malignant neoplasm without specification of site (20 sources) Malignant neoplastic disease; Translations: [Malignant (primary) neoplasm, unspecified] 04-17-2020 Chronic Nausea and vomiting (3 sources) Nausea; Translations: [Nausea] Episodic Nutritional deficiencies (20 sources) Osteomalacia; Translations: [Adult osteomalacia, unspecified] Onset: 04-15-2008 04-15-2008 Chronic Osteoarthritis (1 source) Bilateral primary osteoarthritis of hip; Translations: [Osteoarthritis of both hips, unspecified osteoarthritis type] Onset: 12-03-2022 Chronic Osteoporosis (20 sources) Senile osteoporosis; Translations: [Age-related osteoporosis without current pathological fracture] Onset: 04-15-2008 04-15-2008 Chronic Other aftercare (1 source) Other predatory animal exterminator (current) drug therapy; Translations: [Medication management] Onset: 01-09-2023 Episodic Other and ill-defined heart disease (20 sources) Diastolic dysfunction; Translations: [Other ill-defined heart diseases] Onset: 11-23-2019 01-07-2020 Chronic Other circulatory disease (1 source) Low blood pressure; Translations: [Hypotension, unspecified] Episodic Other connective tissue disease (1 source) Finding of thigh; Translations: [Other specified soft tissue disorders] Episodic Other connective tissue disease (1 source) Pain in right lower limb; Translations: [Pain in right leg] Episodic Other connective tissue disease (1 source) Swelling of limb; Translations: [Other specified soft tissue disorders] Episodic Other connective tissue disease (1 source) Tenderness in lower limb; Translations: [Pain in right leg] Episodic Other diseases of veins and lymphatics (20 sources) Lymphedema; Translations: [Lymphedema, not elsewhere classified] Onset: 03-30-2019 03-30-2019 Chronic Other ear and sense organ disorders (1 source) Acute otitis externa of right ear; Translations: [Unspecified acute noninfective otitis externa, right ear] Episodic Other female genital disorders (3 sources) Abnormal vaginal bleeding; Translations: [Abnormal uterine and vaginal bleeding, unspecified] Chronic Other gastrointestinal disorders (20 sources) Celiac disease; Translations: [Celiac disease] Onset: 04-15-2008 09-05-2016 Chronic Other gastrointestinal disorders (20 sources) Malabsorption - iron; Translations: [Intestinal malabsorption, unspecified] Onset: 12-11-2016 12-11-2016 Chronic Other gastrointestinal disorders (5 sources) Diarrhea; Translations: [Diarrhea, unspecified] Episodic Other inflammatory condition of skin (2 sources) Itching ; Translations: [Pruritus, unspecified] Episodic Other liver diseases (1 source) Disease of liver; Translations: [Liver disease, unspecified] Chronic Other liver diseases (1 source) Liver disease, unspecified; Translations: [Disorder of liver] Onset: 02-20-2023 Chronic Other liver diseases (3 sources) Liver transplant status; Translations: [Liver replaced by transplant (HCC)] Onset: 01-07-2020 Chronic Other nervous system disorders (1 source) Other chronic pain; Translations: [Chronic pain of both knees] Onset: 08-31-2022 Chronic Other nervous system disorders (20 sources) Krueger's palsy; 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 Episodic Other non-traumatic joint disorders (2 sources) Bilateral wrist pain; Translations: [Pain in right wrist] Episodic Other non-traumatic joint disorders (2 sources) Chronic pain of left upper limb; Translations: [Pain in left wrist] Episodic Other non-traumatic joint disorders (3 sources) Pain in wrist; Translations: [Pain in right wrist] Episodic Other non-traumatic joint disorders (2 sources) Pain of right wrist; Translations: [Pain in right wrist] Episodic Other non-traumatic joint disorders (2 sources) Hip pain; Translations: [Pain in left hip] 11-07-2022 Episodic Other nutritional; endocrine; and metabolic disorders (20 sources) Body mass index 40+ - severely obese; Translations: [Morbid (severe) obesity due to excess calories] Onset: 06-05-2017 01-07-2020 Chronic Other nutritional; endocrine; and metabolic disorders (1 source) Obesity, unspecified; Translations: [Obesity (BMI 30-39.9)] Onset: 07-12-2022 Chronic Other skin disorders (3 sources) Lump on thigh; Translations: [Localized swelling, mass and lump, right lower limb] Episodic Other skin disorders (1 source) Disorder of left upper extremity; Translations: [Localized swelling, mass and lump, left upper limb] Episodic Other skin disorders (2 sources) Disorder of right lower extremity; Translations: [Localized swelling, mass and lump, right lower limb] Episodic Other skin disorders (1 source) Eruption; Translations: [Rash and other nonspecific skin eruption] 10-27-2022 Episodic Residual codes; unclassified (20 sources) Obstructive sleep apnea syndrome; Translations: [Obstructive sleep apnea (adult) (pediatric)] 02-27-2021 Chronic Residual codes; unclassified (2 sources) Awaiting transplantation; Translations: [Awaiting organ transplant status] Chronic Residual codes; unclassified (3 sources) Edema; Translations: [Edema, unspecified] Episodic Residual codes; unclassified (3 sources) Disturbance in sleep behavior; Translations: [Sleep disorder, unspecified] Episodic Residual codes; unclassified (1 source) History of clinical finding in subject; Translations: [Personal history of other medical treatment] Episodic Residual codes; unclassified (1 source) Postmenopausal state; Translations: [Asymptomatic menopausal state] 11-07-2022 Episodic Thyroid disorders (20 sources) Acquired hypothyroidism; Translations: [Hypothyroidism, unspecified] Onset: 09-05-2016 01-07-2020 Chronic Unclassified (20 sources) ASA CLASS III Onset: 02-19-2008 02-19-2008 Unclassified (20 sources) SUMMARY Onset: 12-21-2014 02-27-2021 Past or Other Problems Problem Classification Problem Date Documented Date Episodic/Chronic Coagulation and hemorrhagic disorders (20 sources) Secondary thrombocytopenia; Translations: [Other secondary thrombocytopenia] Onset: 0 01-07-2020 Episodic Complication of device; implant or graft (20 sources) Complication of transplanted liver; Translations: [Unspecified complication of liver transplant] Onset: 9 07-07-2008 Episodic Conditions associated with dizziness or vertigo (2 sources) Dizziness; Translations: [Dizziness and giddiness] Onset: 3 Episodic Deficiency and other anemia (20 sources) Anemia due to medication; Translations: [Other specified anemias] Onset: 7 12-07-2016 Episodic Deficiency and other anemia (20 sources) Iron deficiency anemia; Translations: [Iron deficiency anemia, unspecified] Onset: 7 12-11-2016 Episodic E Codes: Adverse effects of medical drugs (1 source) Adverse effect of antineoplastic and immunosuppressive drugs, initial encounter; Translations: [Calcineurin inhibitor causing toxicity in therapeutic use] Onset: 3 Episodic E Codes: Fall (2 sources) Fall; Translations: [Unspecified fall, initial encounter] Onset: 3 11-07-2022 Episodic Immunizations and screening for infectious disease (1 source) Encounter for screening for infections with a predominantly sexual mode of transmission; Translations: [Screening for venereal disease] Onset: 3 Episodic Malaise and fatigue (2 sources) Fatigue; Translations: [Other fatigue] Onset: 3 Episodic Noninfectious gastroenteritis (2 sources) Chronic diarrhea; Translations: [Noninfective gastroenteritis and colitis, unspecified] Onset: 3 Episodic Open wounds of extremities (20 sources) Open wound of lower limb; Translations: [Unspecified open wound, unspecified knee, initial encounter] Onset: 6 02-12-2006 Episodic Other aftercare (20 sources) Post-discharge follow-up; Translations: [Encounter for follow-up examination after completed treatment for conditions other than malignant neoplasm] Onset: 2 05-23-2021 Episodic Other aftercare (1 source) long term (current) use of insulin; Translations: [Type 2 diabetes mellitus with hyperosmolarity 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, with long-term current use of insulin (HCC)] Onset: 1 Episodic Other circulatory disease (1 source) Hypotension, unspecified; Translations: [Hypotension, unspecified hypotension type] Onset: 3 Episodic Other hematologic conditions (20 sources) Hypersplenism; Translations: [Hypersplenism] Onset: 9 11-25-2008 Episodic Other lower respiratory disease (20 sources) Dyspnea on exertion; Translations: [Shortness of breath] Onset: 0 11-23-2019 Episodic Other non-traumatic joint disorders (20 sources) Pain in right hip joint; Translations: [Pain in right hip] Onset: 8 02-12-2018 Episodic Other non-traumatic joint disorders (2 sources) Pain in right knee; Translations: [Pain in joint, lower leg] Onset: 3 Episodic Other non-traumatic joint disorders (4 sources) Pain in left knee; Translations: [Pain in joint, lower leg] Onset: 3 11-26-2022 Episodic Other non-traumatic joint disorders (1 source) Pain in left hip; Translations: [Left hip pain] Onset: 3 Episodic Other screening for suspected conditions (not mental disorders or infectious disease) (20 sources) Patient encounter status; Translations: [Encounter for screening for cardiovascular disorders] Onset: 0 11-23-2019 Episodic Other skin disorders (1 source) Nonscarring hair loss, unspecified; Translations: [Hair thinning] Onset: 3 Episodic Other skin disorders (1 source) Nail dystrophy; Translations: [Brittle nails] Onset: 3 Episodic Residual codes; unclassified (20 sources) Prevention status; Translations: [Encounter for other specified prophylactic measures] Onset: 9 08-25-2008 Episodic Residual codes; unclassified (20 sources) H/O: blood transfusion; Translations: [Personal history of other medical treatment] Onset: 9 11-27-2018 Episodic Residual codes; unclassified (20 sources) Bilateral lower limb edema; Translations: [Localized edema] Onset: 0 11-23-2019 Episodic Residual codes; unclassified (1 source) Asymptomatic menopausal state; Translations: [Asymptomatic postmenopausal status] Onset: 3 Episodic Skin and subcutaneous tissue infections (20 sources) Cellulitis of lower leg; Translations: [Cellulitis of unspecified part of limb] Onset: 6 02-27-2021 Episodic Results Test Name Value Interpretation Reference Range Facil ity Vital Signs Date Time Vital Sign Value Performing Clinician Faci lity 01-10-2023 14:09-0500 Body weight 116 kg Lizeth Bey MD Work Phone: [facility] 01-10-2023 14:09-0500 Diastolic blood pressure 66 mm[Hg] Lizeth Bey MD Work Phone: [facility] 01-10-2023 14:09-0500 Heart rate 85 /min Lizeth Bey MD Work Phone: [facility] 01-10-2023 14:09-0500 SaO2% (BldA) [Mass fraction] 98 % Lizeth Bey MD Work Phone: [facility] 01-10-2023 14:09-0500 Systolic blood pressure 156 mm[Hg] Lizeth Bey MD Work Phone: [facility] 01-10-2023 09:23-0500 Body height 166.4 cm Amadeo Karlos RESEARCH FOOD TECHNOLOGIST.PROPERTY MANAGEMENT COORDINATOR Work Phone: [facility] 01-10-2023 09:23-0500 Body temperature 98.4 [degF] Amadeo Karlos RESEARCH FOOD TECHNOLOGIST.PROPERTY MANAGEMENT COORDINATOR Work Phone: [facility] 01-10-2023 09:23-0500 Body weight 116.03 kg Amadeo Karlos RESEARCH FOOD TECHNOLOGIST.PROPERTY MANAGEMENT COORDINATOR Work Phone: [facility] 01-10-2023 09:23-0500 Diastolic blood pressure 45 mm[Hg] Amadeo Karlos RESEARCH FOOD TECHNOLOGIST.PROPERTY MANAGEMENT COORDINATOR Work Phone: [facility] 01-10-2023 09:23-0500 Heart rate 78 /min Amadeo Karlos RESEARCH FOOD TECHNOLOGIST.PROPERTY MANAGEMENT COORDINATOR Work Phone: [facility] 01-10-2023 09:23-0500 SaO2% (BldA) [Mass fraction] 100 % Amadeo Karlos RESEARCH FOOD TECHNOLOGIST.PROPERTY MANAGEMENT COORDINATOR Work Phone: [facility] 01-10-2023 09:23-0500 Systolic blood pressure 144 mm[Hg] Amadeo Karlos RESEARCH FOOD TECHNOLOGIST.PROPERTY MANAGEMENT COORDINATOR Work Phone: [facility] 01-09-2023 13:51-0500 Body height 166.4 cm Silva Older RESEARCH FOOD TECHNOLOGIST.PROPERTY MANAGEMENT COORDINATOR Work Phone: [facility] 01-09-2023 13:51-0500 Body temperature 97.2 [degF] Silva Older RESEARCH FOOD TECHNOLOGIST.PROPERTY MANAGEMENT COORDINATOR Work Phone: [facility] 01-09-2023 13:51-0500 Body weight 115.21 kg Silva Older RESEARCH FOOD TECHNOLOGIST.PROPERTY MANAGEMENT COORDINATOR Work Phone: [facility] 01-09-2023 13:51-0500 Diastolic blood pressure 60 mm[Hg] Silva Older RESEARCH FOOD TECHNOLOGIST.PROPERTY MANAGEMENT COORDINATOR Work Phone: [facility] 01-09-2023 13:51-0500 Heart rate 87 /min Silva Older RESEARCH FOOD TECHNOLOGIST.PROPERTY MANAGEMENT COORDINATOR Work Phone: [facility] 01-09-2023 13:51-0500 Respiratory rate 18 /min Silva Older RESEARCH FOOD TECHNOLOGIST.PROPERTY MANAGEMENT COORDINATOR Work Phone: [facility] 01-09-2023 13:51-0500 SaO2% (BldA) [Mass fraction] 99 % Silva Older RESEARCH FOOD TECHNOLOGIST.PROPERTY MANAGEMENT COORDINATOR Work Phone: [facility] 01-09-2023 13:51-0500 Systolic blood pressure 126 mm[Hg] Silva Older RESEARCH FOOD TECHNOLOGIST.PROPERTY MANAGEMENT COORDINATOR Work Phone: [facility] 12-27-2022 08:02-0400 Body temperature 97.59 [degF] Silva Older RESEARCH FOOD TECHNOLOGIST.PROPERTY MANAGEMENT COORDINATOR Work Phone: [facility] 12-27-2022 08:02-0400 Diastolic blood pressure 58 mm[Hg] Silva Older RESEARCH FOOD TECHNOLOGIST.PROPERTY MANAGEMENT COORDINATOR Work Phone: [facility] 12-27-2022 08:02-0400 Heart rate 65 /min Silva Older RESEARCH FOOD TECHNOLOGIST.PROPERTY MANAGEMENT COORDINATOR Work Phone: [facility] 12-27-2022 08:02-0400 Respiratory rate 16 /min Silva Older RESEARCH FOOD TECHNOLOGIST.PROPERTY MANAGEMENT COORDINATOR Work Phone: [facility] 12-27-2022 08:02-0400 SaO2% (BldA) [Mass fraction] 93 % Silva Older RESEARCH FOOD TECHNOLOGIST.PROPERTY MANAGEMENT COORDINATOR Work Phone: [facility] 12-27-2022 08:02-0400 Systolic blood pressure 136 mm[Hg] Silva Older RESEARCH FOOD TECHNOLOGIST.PROPERTY MANAGEMENT COORDINATOR Work Phone: [facility] 11-26-2022 14:10-0400 Body height 166.4 cm Ramin Denbow PA-C Work Phone: [facility] 11-26-2022 14:10-0400 Body temperature 98.29 [degF] Ramin Denbow PA-C Work Phone: [facility] 11-26-2022 [id number] Body weight 114.76 kg Ramin Denbow PA-C Work Phone: [facility] 11-26-2022 14:10-0400 Diastolic blood pressure 56 mm[Hg] Ramin Denbow PA-C Work Phone: [facility] 11-26-2022 14:10-0400 Heart rate 83 /min Ramin Denbow PA-C Work Phone: [facility] 11-26-2022 14:10-0400 Respiratory rate 14 /min Ramin Denbow PA-C Work Phone: [facility] 11-26-2022 14:10-0400 SaO2% (BldA) [Mass fraction] 97 % Ramin Denbow PA-C Work Phone: [facility] 11-26-2022 14:10-0400 Systolic blood pressure 136 mm[Hg] Ramin Denbow PA-C Work Phone: [facility] 11-07-2022 12:36-0400 Diastolic blood pressure 46 mm[Hg] Erin Older RESEARCH FOOD TECHNOLOGIST.PROPERTY MANAGEMENT COORDINATOR Work Phone: [facility] 11-07-2022 12:36-0400 Heart rate 76 /min Erin Older RESEARCH FOOD TECHNOLOGIST.PROPERTY MANAGEMENT COORDINATOR Work Phone: [facility] 11-07-2022 12:36-0400 Respiratory rate 14 /min Erin Older RESEARCH FOOD TECHNOLOGIST.PROPERTY MANAGEMENT COORDINATOR Work Phone: [facility] 11-07-2022 12:36-0400 Systolic blood pressure 147 mm[Hg] Erin Older RESEARCH FOOD TECHNOLOGIST.PROPERTY MANAGEMENT COORDINATOR Work Phone: [facility] 10-27-2022 12:38-0400 Body temperature 98.8 [degF] Sandy Mendes APRN.PROPERTY MANAGEMENT COORDINATOR Work Phone: [facility] 10-27-2022 12:38-0400 Body weight 114.76 kg Sandy Mendes APRN.PROPERTY MANAGEMENT COORDINATOR Work Phone: [facility] 10-27-2022 12:38-0400 Diastolic blood pressure 58 mm[Hg] Sandy Mendes APRN.PROPERTY MANAGEMENT COORDINATOR Work Phone: [facility] 10-27-2022 12:38-0400 Heart rate 75 /min Sandy Mendes APRN.PROPERTY MANAGEMENT COORDINATOR Work Phone: [facility] 10-27-2022 12:38-0400 Respiratory rate 16 /min Sandy Mendes APRN.PROPERTY MANAGEMENT COORDINATOR Work Phone: [facility] 10-27-2022 12:38-0400 SaO2% (BldA) [Mass fraction] 98 % Sandy Mendes APRN.PROPERTY MANAGEMENT COORDINATOR Work Phone: [facility] 10-27-2022 12:38-0400 Systolic blood pressure 148 mm[Hg] Sandy Mendes APRN.PROPERTY MANAGEMENT COORDINATOR Work Phone: [facility] 07-12-2022 11:23-0400 Body height 166.[address] [facility] 07-12-2022 11:23-0400 Body weight [address] [facility] 05-02-2022 12:30-0500 Body temperature 98.6 [degF] Silva Older RESEARCH FOOD TECHNOLOGIST.PROPERTY MANAGEMENT COORDINATOR Work Phone: [facility] 05-02-2022 12:30-0500 Body weight 113.4 kg Silva Older RESEARCH FOOD TECHNOLOGIST.PROPERTY MANAGEMENT COORDINATOR Work Phone: [facility] 05-02-2022 12:30-0500 Diastolic blood pressure 46 mm[Hg] Silva Older RESEARCH FOOD TECHNOLOGIST.PROPERTY MANAGEMENT COORDINATOR Work Phone: [facility] 05-02-2022 12:30-0500 Heart rate 86 /min Silva Older RESEARCH FOOD TECHNOLOGIST.PROPERTY MANAGEMENT COORDINATOR Work Phone: [facility] 05-02-2022 12:30-0500 Respiratory rate 16 /min Silva Older RESEARCH FOOD TECHNOLOGIST.PROPERTY MANAGEMENT COORDINATOR Work Phone: [facility] 05-02-2022 12:30-0500 SaO2% (BldA) [Mass fraction] 97 % Silva Older RESEARCH FOOD TECHNOLOGIST.PROPERTY MANAGEMENT COORDINATOR Work Phone: [facility] 05-02-2022 12:30-0500 Systolic blood pressure 98 mm[Hg] Silva Older RESEARCH FOOD TECHNOLOGIST.PROPERTY MANAGEMENT COORDINATOR Work Phone: [facility] 02-05-2022 11:51-0500 Body height 165.1 cm Jame Hunt MD Work Phone: [facility] 02-05-2022 11:51-0500 Body temperature 98.49 [degF] Jame Hunt MD Work Phone: [facility] 02-05-2022 11:51-0500 Body weight 110.22 kg Jame Hunt MD Work Phone: [facility] 02-05-2022 11:51-0500 Diastolic blood pressure 50 mm[Hg] Jame Hunt MD Work Phone: [facility] 02-05-2022 11:51-0500 Heart rate 89 /min Jame Hunt MD Work Phone: [facility] 02-05-2022 11:51-0500 Respiratory rate 18 /min Jame Hunt MD Work Phone: [facility] 02-05-2022 11:51-0500 SaO2% (BldA) [Mass fraction] 96 % Jame Hunt MD Work Phone: [facility] 02-05-2022 11:51-0500 Systolic blood pressure 110 mm[Hg] Jame Hunt MD Work Phone: [facility] 01-29-2022 12:59-0500 Body temperature 98.8 [degF] Silva Older RESEARCH FOOD TECHNOLOGIST.PROPERTY MANAGEMENT COORDINATOR Work Phone: [facility] 01-29-2022 12:59-0500 Diastolic blood pressure 68 mm[Hg] Silva Older RESEARCH FOOD TECHNOLOGIST.PROPERTY MANAGEMENT COORDINATOR Work Phone: [facility] 01-29-2022 12:59-0500 Heart rate 84 /min Silva Older RESEARCH FOOD TECHNOLOGIST.PROPERTY MANAGEMENT COORDINATOR Work Phone: [facility] 01-29-2022 12:59-0500 SaO2% (BldA) [Mass fraction] 98 % Silva Older RESEARCH FOOD TECHNOLOGIST.PROPERTY MANAGEMENT COORDINATOR Work Phone: [facility] 01-29-2022 12:59-0500 Systolic blood pressure 140 mm[Hg] Silva Older RESEARCH FOOD TECHNOLOGIST.PROPERTY MANAGEMENT COORDINATOR Work Phone: [facility] 01-01-2022 13:54-0400 Body weight 112.04 kg Silva Older RESEARCH FOOD TECHNOLOGIST.PROPERTY MANAGEMENT COORDINATOR Work Phone: [facility] 01-01-2022 13:54-0400 Diastolic blood pressure 68 mm[Hg] Silva Older RESEARCH FOOD TECHNOLOGIST.PROPERTY MANAGEMENT COORDINATOR Work Phone: [facility] 01-01-2022 13:54-0400 Heart rate 80 /min Silva Older RESEARCH FOOD TECHNOLOGIST.PROPERTY MANAGEMENT COORDINATOR Work Phone: [facility] 01-01-2022 13:54-0400 Respiratory rate 16 /min Silva Older RESEARCH FOOD TECHNOLOGIST.PROPERTY MANAGEMENT COORDINATOR Work Phone: [facility] 01-01-2022 13:54-0400 Systolic blood pressure 144 mm[Hg] Silva Older RESEARCH FOOD TECHNOLOGIST.PROPERTY MANAGEMENT COORDINATOR Work Phone: [facility] 12-11-2021 14:24-0400 Diastolic blood pressure 62 mm[Hg] Silva Older RESEARCH FOOD TECHNOLOGIST.PROPERTY MANAGEMENT COORDINATOR Work Phone: [facility] 12-11-2021 14:24-0400 Heart rate 68 /min Silva Older RESEARCH FOOD TECHNOLOGIST.PROPERTY MANAGEMENT COORDINATOR Work Phone: [facility] 12-11-2021 14:24-0400 Respiratory rate 16 /min Silva Older RESEARCH FOOD TECHNOLOGIST.PROPERTY MANAGEMENT COORDINATOR Work Phone: [facility] 12-11-2021 14:24-0400 Systolic blood pressure 132 mm[Hg] Silva Older RESEARCH FOOD TECHNOLOGIST.PROPERTY MANAGEMENT COORDINATOR Work Phone: [facility] 10-20-2021 08:55-0400 Body weight 114.76 kg Jaci Angelaawick RESEARCH FOOD TECHNOLOGIST.PROPERTY MANAGEMENT COORDINATOR Work Phone: [facility] 10-20-2021 08:55-0400 Diastolic blood pressure 50 mm[Hg] Jaci Zurawick RESEARCH FOOD TECHNOLOGIST.PROPERTY MANAGEMENT COORDINATOR Work Phone: [facility] 10-20-2021 08:55-0400 Heart rate 68 /min Jaci Zurawick RESEARCH FOOD TECHNOLOGIST.PROPERTY MANAGEMENT COORDINATOR Work Phone: [facility] 10-20-2021 08:55-0400 Respiratory rate 18 /min Jaci Zurawick RESEARCH FOOD TECHNOLOGIST.PROPERTY MANAGEMENT COORDINATOR Work Phone: [facility] 10-20-2021 08:55-0400 Systolic blood pressure 138 mm[Hg] Jaci Zurawick RESEARCH FOOD TECHNOLOGIST.PROPERTY MANAGEMENT COORDINATOR Work Phone: [facility] 09-28-2021 12:35-0400 Diastolic blood pressure 66 mm[Hg] Silva Older RESEARCH FOOD TECHNOLOGIST.PROPERTY MANAGEMENT COORDINATOR Work Phone: [facility] 09-28-2021 12:35-0400 Heart rate 72 /min Silva Older RESEARCH FOOD TECHNOLOGIST.PROPERTY MANAGEMENT COORDINATOR Work Phone: [facility] 09-28-2021 12:35-0400 Respiratory rate 16 /min Silva Older RESEARCH FOOD TECHNOLOGIST.PROPERTY MANAGEMENT COORDINATOR Work Phone: [facility] 09-28-2021 12:35-0400 Systolic blood pressure 140 mm[Hg] Silva Older RESEARCH FOOD TECHNOLOGIST.PROPERTY MANAGEMENT COORDINATOR Work Phone: [facility] 08-31-2021 08:32-0400 Body weight 112.95 kg Silva Older RESEARCH FOOD TECHNOLOGIST.PROPERTY MANAGEMENT COORDINATOR Work Phone: [facility] 08-31-2021 08:32-0400 Diastolic blood pressure 60 mm[Hg] Silva Older RESEARCH FOOD TECHNOLOGIST.PROPERTY MANAGEMENT COORDINATOR Work Phone: [facility] 08-31-2021 08:32-0400 Heart rate 75 /min Silva Older RESEARCH FOOD TECHNOLOGIST.PROPERTY MANAGEMENT COORDINATOR Work Phone: [facility] 08-31-2021 08:32-0400 Respiratory rate 16 /min Silva Older RESEARCH FOOD TECHNOLOGIST.PROPERTY MANAGEMENT COORDINATOR Work Phone: [facility] 08-31-2021 08:32-0400 SaO2% (BldA) [Mass fraction] 98 % Silva Older RESEARCH FOOD TECHNOLOGIST.PROPERTY MANAGEMENT COORDINATOR Work Phone: [facility] 08-31-2021 08:32-0400 Systolic blood pressure 130 mm[Hg] Silva Older RESEARCH FOOD TECHNOLOGIST.PROPERTY MANAGEMENT COORDINATOR Work Phone: [facility] 08-25-2021 08:22-0400 Body weight 113.4 kg Silva Older RESEARCH FOOD TECHNOLOGIST.PROPERTY MANAGEMENT COORDINATOR Work Phone: [facility] 08-25-2021 08:22-0400 Diastolic blood pressure 62 mm[Hg] Silva Older RESEARCH FOOD TECHNOLOGIST.PROPERTY MANAGEMENT COORDINATOR Work Phone: [facility] 08-25-2021 08:22-0400 Heart rate 72 /min Silva Older RESEARCH FOOD TECHNOLOGIST.PROPERTY MANAGEMENT COORDINATOR Work Phone: [facility] 08-25-2021 08:22-0400 Respiratory rate 16 /min Silva Older RESEARCH FOOD TECHNOLOGIST.PROPERTY MANAGEMENT COORDINATOR Work Phone: [facility] 08-25-2021 08:22-0400 Systolic blood pressure 134 mm[Hg] Silva Older RESEARCH FOOD TECHNOLOGIST.PROPERTY MANAGEMENT COORDINATOR Work Phone: [facility] 08-14-2021 12:01-0400 Body height 165.1 cm Jame Hunt MD Work Phone: [facility] 08-14-2021 12:01-0400 Body temperature 97.11 [degF] Jame Hunt MD Work Phone: [facility] 08-14-2021 12:01-0400 Diastolic blood pressure 44 mm[Hg] Jame Hunt MD Work Phone: [facility] 08-14-2021 12:01-0400 Heart rate 74 /min Jame Hunt MD Work Phone: [facility] 08-14-2021 12:01-0400 Respiratory rate 16 /min Jame Hunt MD Work Phone: [facility] 08-14-2021 12:01-0400 SaO2% (BldA) [Mass fraction] 100 % Jame Hunt MD Work Phone: [facility] 08-14-2021 12:01-0400 Systolic blood pressure 114 mm[Hg] aJme Hunt MD Work Phone: [facility] 07-03-2021 10:24-0400 Body weight 112.95 kg Josse Lance RESEARCH FOOD TECHNOLOGIST.IT SECURITY ENGINEER Work Phone: [facility] 07-03-2021 10:24-0400 Diastolic blood pressure 56 mm[Hg] Josse Lance RESEARCH FOOD TECHNOLOGIST.IT SECURITY ENGINEER Work Phone: [facility] 07-03-2021 10:24-0400 Heart rate 76 /min Josse Lance RESEARCH FOOD TECHNOLOGIST.IT SECURITY ENGINEER Work Phone: [facility] 07-03-2021 10:24-0400 Respiratory rate 16 /min Josse Lance RESEARCH FOOD TECHNOLOGIST.IT SECURITY ENGINEER Work Phone: [facility] 07-03-2021 10:24-0400 Systolic blood pressure 122 mm[Hg] Josse Lance RESEARCH FOOD TECHNOLOGIST.IT SECURITY ENGINEER Work Phone: [facility] Encounters Encounter Date Encounter Type Care Provider Facility Start: 02-20-2023 End: 02-21-2023 ambulatory [facility] Facility:[facility] Start: 02-20-2023 End: 02-21-2023 ambulatory [facility] Facility:[facility] Start: 02-11-2023 Telephone encounter Dasha Miller RN (R n) [facility] Procedures Date Procedure Procedure Detail Performing Clinician Start: 01-09-2023 [employer] COVI D-19 VACCINE ( SEASON) AGE 12+ YR Silva Older RESEARCH FOOD TECHNOLOGIST.PROPERTY MANAGEMENT COORDINATOR Work Phone: Start: 11-07-2022 Dxa bone density ximena dy 1/> sites axial skel Silva Older RESEARCH FOOD TECHNOLOGIST.PROPERTY MANAGEMENT COORDINATOR Work Phone: Start: 07-12-2022 Antibody screen JAME HUNT Plan of Treatment Date Care Activity Detail Author Start: 12-31-2028 Urine microalbumin profile [facility] Start: 09-13-2027 Colonoscopy COLONOSCOPY [facility] Start: 09-13-2027 COLORECTAL CANCER SCREENING COLORECTAL CANCER SCREENING [facility] Start: 11-07-2025 PNEUMOCOCCAL (4 - PP SV23 if available, else PCV20) PNEUMOCOCCAL (4 - PPSV23 if available, else PCV20) [facility] Start: 11-07-2025 PNEUMOCOCCAL (4 - PP SV23 or PCV20) PNEUMOCOCCAL (4 - PPSV23 or PCV20) [facility] Start: 11-07-2025 PNEUMOCOCCAL: 65+ (4 - PPSV23 if available, else PCV20) PNEUMOCOCCAL: 65+ (4 - PPSV23 if available, else PCV20) [facility] Start: 11-07-2025 PNEUMOCOCCAL: 65+ (4 - PPSV23 or PCV20) PNEUMOCOCCAL: 65+ (4 - PPSV23 or PCV20) [facility] Start: 01-10-2024 Annual PCP Team Control Specialist [place] Disease Visit Annual PCP Team Chronic Disease Visit [facility] Start: 01-10-2024 BP Controlled (<130/80) BP Controlle d (<130/80) [facility] Start: 01-10-2024 RSV Vaccine (1 - 1-d ose 60+ series) RSV Vaccine (1 - 1-dose 60+ series) [facility] Immunizations Immunization Date Immunization Notes Care Provider Guido baptiste 01-09-2023 COVID-19 vaccine, ag e 12+ yr, season ([employer]ER-[employer]) Silva Plasencia RESEARCH FOOD TECHNOLOGIST.PROPERTY MANAGEMENT COORDINATOR Work Phone: [facility] 12-09-2022 influenza, injectabl e, quadrivalent, preservative free Kel Victoria MD Work Phone: [facility] 10-15-2022 Hepatitis B vaccine (recombinant), CpG adjuvantkit Hunt MD Work Phone: [facility] 08-13-2022 Hepatitis B vaccine (recombinant), CpG jonathan Hunt MD Work Phone: [facility] 07-09-2022 Hepatitis B vaccine (recombinant), Candy Hunt MD Work Phone: [facility] 06-11-2022 Hepatitis B vaccine (recombinant), CpG adjuvanted Jame Hunt MD Work Phone: [facility] 01-15-2022 pneumococcal (PCV20) vaccine, 20 valent (PREVNAR 20) Jame Hunt MD Work Phone: [facility] 11-25-2021 COVID-19 booster vaccine, age 12+ yr, bivalent ([employer]) Jame Hunt MD Work Phone: [facility] 11-20-2021 influenza, injectabl e, quadrivalent, contains preservative Jame Hunt MD Work Phone: [facility] 11-20-2021 influenza, injectabl e, quadrivalent, preservative free Jame Hunt MD Work Phone: [facility] 11-20-2021 influenza virus vacc ine, unspecified formulation Jame Hunt MD Work Phone: [facility] 10-20-2021 influenza, seasonal, injectable Jame Hunt MD Work Phone: [facility] 10-11-2021 Hepatitis B vaccine (recombinant), CpG adjuvanted Jame Hunt MD Work Phone: [facility] 09-11-2021 zoster vaccine recombinant Kim [facility] Work Phone: [facility] 08-15-2021 Hepatitis B vaccine (recombinant), CpG adjuvantkit Hunt MD Work Phone: [facility] 07-10-2021 Hepatitis B vaccine (recombinant), CpG jonathan Hunt MD Work Phone: [facility] 06-15-2021 zoster vaccine recombinant Kim [facility] Work Phone: [facility] 06-12-2021 Hepatitis B vaccine (recombinant), CpG jonathan Hunt MD Work Phone: [facility] 05-02-2021 COVID-19 vaccine, ag e 12+ yr (PFIZER-BIONTECH - CARNEY TOP) Kim [facility] Work Phone: [facility] Work Phone: 03-13-2021 Hepatitis B vaccine (recombinant), CpG adjuvanted Jame Hunt MD Work Phone: [facility] 01-09-2021 Hepatitis B vaccine (recombinant), CpG adjuvanted Jame Hunt MD Work Phone: [facility] 12-30-2020 influenza, seasonal, injectable, preservative free Renetta Mendez RN [facility] 12-12-2020 Hepatitis B vaccine (recombinant), CpG adjuvanted Jame Hunt MD Work Phone: [facility] 11-14-2020 Hepatitis B vaccine (recombinant), CpG adjuvanted Jame Hunt MD Work Phone: [facility] 11-14-2020 pneumococcal polysaccharide vaccine, 23 valent Jame Hunt MD Work Phone: [facility] 11-07-2020 hepatitis B vaccine, adult dosage Jame Hunt MD Work Phone: [facility] Work Phone: 11-07-2020 pneumococcal polysaccharide vaccine, 23 valent Jame Hunt MD Work Phone: [facility] Work Phone: 11-01-2020 influenza, injectabl e, quadrivalent, contains preservative Jame Hunt MD Work Phone: [facility] Work Phone: 11-01-2020 Seasonal, quadrivale nt, recombinant, injectable influenza vaccine, preservative free Renetta Mendez RN [facility] 10-31-2020 influenza virus vacc ine, unspecified formulation Renetta Mendez RN [facility] 06-02-2020 COVID-19 original vaccine, age 12+ yr, monovalent (PFIZER-BIONTECH - PURPLE TOP) Renetta Mendez RN [facility] 06-01-2020 COVID-19 vaccine, ag e 12+ yr ([employer] - PURPLE TOP) Jame Hunt MD Work Phone: [facility] 12-31-2019 influenza, injectabl e, quadrivalent, preservative free Jame Hunt MD Work Phone: [facility] 12-31-2018 influenza, injectabl e, quadrivalent, contains preservative Jame Hunt MD Work Phone: [facility] 12-31-2018 tetanus and diphther ia toxoids, adsorbed, preservative free, for adult use (5 Lf of tetanus toxoid and 2 Lf of diphtheria toxoid) Jame Hunt MD Work Phone: [facility] 12-16-2017 influenza, seasonal, injectable, preservative free Renetta Mendez [facility] 12-08-2017 influenza virus vacc ine, unspecified formulation Renetta Mendez RN [facility] 12-07-2016 pneumococcal conjuga te vaccine, 13 valent Jame Hunt MD Work Phone: [facility] Work Phone: 11-30-2016 influenza, seasonal, injectable Jame Hunt MD Work Phone: [facility] 05-28-2016 influenza, seasonal, injectable, preservative free Renetta Mendez [facility] 05-28-2016 pneumococcal polysaccharide vaccine, 23 valent Renetta Mendez RN [facility] 01-02-2016 influenza, seasonal, injectable Jame Hunt MD Work Phone: [facility] 01-02-2016 influenza, seasonal, injectable, preservative free Renetta Mendez RN [facility] 12-24-2014 influenza, injectabl e, quadrivalent, preservative free Jame Hunt MD Work Phone: [facility] 12-21-2014 influenza, seasonal, injectable, preservative free Renetta Mendez RN [facility] 12-03-2013 influenza, seasonal, injectable, preservative free Renetta Mendez RN [facility] 12-03-2013 pneumococcal polysaccharide vaccine, 23 valent Jame Hunt MD Work Phone: [facility] 12-03-2013 pneumococcal vaccine , unspecified formulation Renetta Mendez RN [facility] 12-08-2008 influenza virus vacc ine, unspecified formulation Jame Hunt MD Work Phone: [facility] 11-24-2008 pneumococcal polysaccharide vaccine, 23 valent Kim [facility] Work Phone: [facility] Work Phone: 05-04-2008 haemophilus influenz ae type b vaccine, PRP-T conjugate Jame Hunt MD Work Phone: [facility] 05-04-2008 meningococcal polysaccharide vaccine (MPSV4) Jame Hunt MD Work Phone: [facility] Work Phone: 05-04-2008 pneumococcal polysaccharide vaccine, 23 valent Jame Hunt MD Work Phone: [facility] Work Phone: 02-19-2008 hepatitis A and hepatitis B vaccine Jame Hunt MD Work Phone: [facility] 02-19-2008 tetanus toxoid, redu rios diphtheria toxoid, and acellular pertussis vaccine, adsorbed Jame Hunt MD Work Phone: [facility] 12-11-2007 influenza virus vacc ine, unspecified formulation Jame Hunt MD Work Phone: [facility] 12-31-2006 influenza virus vacc ine, unspecified formulation Jame Hunt MD Work Phone: [facility] Payers Date Payer Category Payer Medicaid [employer] [id number] 2021-Present [phone] [address] [place] [address] Medicaid [id number] 2021 Medicaid [id number] 2021 Medicaid [id number] 2021 Medicaid [id number] 2021 Medicaid [id number] 2022 Medicare [employer]NA MEDICARE [employer] GOLD PLUS [id number] 2021-Present [phone] [address] [address] [place] [address] O [id number] 2021 Medicare HUMANA MEDICARE [employer] GOLD PLUS [id number] 2021-Present [phone] [address] [address] [place] [address] O [id number] 2021 Private Health Insurance [id number] Social History Date Type Detail Facility Start: 10-04-2016 End: 02-05-2022 Tobacco smoking status NHIS Never smoked tobacco [facility] Start: 10-04-2016 End: 02-05-2022 Tobacco use and exposure Smokeless tobacco non-user [facility] Start: 04-05-2021 End: 01-10-2023 Alcohol intake Current non-drinker of alcohol (finding) [facility] Start: 05-22-2021 End: 01-22-2022 History SDOH Alcohol Frequency 1 [facility] Start: 05-22-2021 End: 01-22-2022 History SDOH Alcohol Std Drinks 98 [facility] Start: 05-22-2021 End: 01-22-2022 History SDOH Social Connections Phone 5 [facility] Start: 05-22-2021 End: 01-22-2022 History SDOH Social Connections Get Together 2 [facility] Start: 05-22-2021 End: 01-22-2022 History SDOH Social Connections Living 3 [facility] Start: 05-22-2021 History SDOH Financial 4 [facility] Start: 01-11-2019 Education 12 [facility] Start: 09-14-2016 End: 02-05-2022 Tobacco Comment Parents both smoked in childhood home. No household ETS since. [facility] Start: 1955 Sex Assigned At Female [facility] Work Phone: Start: 05-13-2021 End: 02-05-2022 Exposure to SARS-CoV-2 (event) Not sure [facility] Work Phone: Start: 08-15-2021 End: 08-25-2021 Exposure to SARS-CoV-2 (event) Unable to assess [facility] History of tobacco use Passive smoker [facility] Start: 01-22-2022 History SDOH Alcohol Std Drinks 0 [facility] Start: 01-22-2022 End: 07-12-2022 History of Social function [facility] Start: 01-22-2022 End: 07-12-2022 Social connection and isolation panel [facility] Do you belong to any clubs or organizations such as synagogue groups, unions, fraternal or athletic groups, or school groups? No [facility] Are you now , , , , never or living with a partner? [facility] How often to you hav e a drink containing alcohol? Never [facility] How many standard dr inks containing alcohol do you have on a typical day? Patient does not drink [facility] How hard is it for y ou to pay for the very basics like food, housing, medical care, and heating Somewhat hard [facility] Do you feel stress - tense, restless, nervous, or anxious, or unable to sleep at night because your mind is troubled all the time - these days [OSQ] To some extent [facility] (I/We) worried whedonald er (my/our) food would run out before (I/we) got money to buy more. Sometimes true [facility] The food that (I/we) bought just didn't last, and (I/we) didn't have money to get more. Never true [facility] Start: 09-05-2016 Gender identity Identifies as female gender (finding) [facility] Work Phone: Start: 09-05-2016 Sexual orientation Heterosexual (finding) [facility] Work Phone: Medical Equipment Procedure Code Equipment Code Equipment Origin al Text Equipment Identifier Dates Start: 02-19-2018 End: 08-10-2022 Goals Date Patient Goal Desired Activity /State Personal health goal Clinical Notes 01-02-2020 to 02-11-2023 Telephone Encounter - Haritha Chan - 02/11/2023 2:06 PM ESTTelephone Encounter - Dasha Miller RN - 02/11/2023 1:44 PM ESTTelephone Encounter - Dasha Hu RN - 01/17/2023 4:11 PM EST Note Date & Type Note Facility 02-11-2023 Miscellaneous Notes DRY WEIGHT - 109.5 - 02/11/23 scanned into [employer]. Haritha Chan documented in this encounter [facility] 02-11-2023 Miscellaneous Notes Called patient to see how they were doing with weight loss. Asked patient to have dialysis center fax a new dry weight to me. In addition told her that I would touch base with her at the end of March with the hopes of getting her presented. Dasha Miller RN February 11, 2023 1:45 PM documented in this encounter [facility] 01-22-2023 Miscellaneous Notes REMEDIOS 01/09/23 NOV Ramin Reinoso MA Patient has been identified by name and date of : Yes Requested Prescriptions Pending Prescriptions Disp Refills albuterol HFA (PROVENTIL HFA, VENTOLIN HFA) 90 mcg/actuation inhaler 3 Each 2 Sig: Inhale 2 Puffs as instructed every 4 hours as needed. RX INSTRUCTIONS: Patient needs today, [place]. She is requesting 90 days or 3 inhalers. Patient aware RX will be sent to pharmacy. Please notify the patient once sent. Aleyda Cary documented in this encounter [facility] 01-17-2023 Miscellaneous Notes Spoke with patient who indicated she was cleared by Dr. Bey at [facility] for her EGD. Patient indicated she does not need appointment with Dr. Vargas and wishes to cancel at this time. Will get Dr. Bey to complete EGD clearance form. Appointment cancelled per patient's request. Dasha Hu RN Patient states that she had an appointment at [facility] with Dr Lerner for EGD but was told to cancel it and Dr. Vargas would handle it. Patient aware that Dr. Vargas would not be performing EGD and appointment was clearance for the procedure. Patient just recently seen by Dr. Bey for preop cardiovascular clearance for transplant. Patient to call Dr. Lerner's office about rescheduling procedure, ask if recent clearance is enough for them, and to notify us if office visit note needs faxed. Appointment kept with Dr. Vargas at this time. Toma Coleman RN Patient called in stating she was having an EGD with Dr. Vargas on 01/23/2023. She was asking if she needed to stop taking her aspirin prior to procedure. I advised patient that she has an office visit scheduled, not a procedure. Patient is confused. Advised patient that maybe her tin flipper is sending her for cardiology clearance before the procedure. Patient states that she just had a cardiology clearance on 01/10/[address] Bey for a liver transplant. Patient is not sure why she needs to be seen by Dr. Vargas now. Please contact patient back at [phone]. documented in this encounter [facility] 01-17-2023 History of Present illness Narrative [facility] Telephonic Outreach Provider Action/FYI Contacted for: Routine Telephonic Outreach Contact made with patient: Yes Patient identified by name and date of . Discussed care with patient Are you experiencing any new or worsening symptoms you need to talk about today? No Disease Specific Do you check your blood pressure at home? No Do you have new or worsening shortness of breath with activity? No Do you feel like you are dehydrated for any reason, including not being able to eat or drink normally, or having less urine/much darker urine than normal for you? No Do you check your daily weight at home? No Based on assessment analyst, the following disposition is advised: No symptoms or symptoms present, not severe. Routed to: No Action Needed NOELLE Education Provided this Outreach: No Sienna Miller RN January 17, 2023 10:50 AM documented in this encounter [facility] 01-14-2023 Miscellaneous Notes Patient has been identified by name and date of : Yes, Provider Dr. Hunt Date 01/14/23 Time 4:38 p m Patient phones for refill(s): Requested Prescriptions Pending Prescriptions Disp Refills traZODone (DESYREL) 100 mg tablet 180 tablet 1 Sig: Take 2 tablets by mouth daily at bedtime. Date of last office visit in primary care: 01/09/2023 Date of next office visit in primary care: 02/20/2023 Last 2 Encounter Wt Readings: Date: Wt: 01/10/2023 116 kg (255 lb 11.7 oz) 01/10/2023 116 kg (255 lb 12.8 oz) Previous labs/tests for medication: Not applicable Thank you. Nell Lemons LPN. documented in this encounter [facility] 01-10-2023 Miscellaneous Notes Clearance form received and scanned into chart. Patient has appt with Dr. Vargas on 01/23 at 2:20. Lucrecia Villatoro documented in this encounter [facility] 01-10-2023 Note [facility] 01-10-2023 History of Present illness Narrative Images from the original note were not included. [facility] Department of Cardiovascular Medicine SECTION OF CLINICAL CARDIOLOGY OUTPATIENT VISIT DATE January 10, 2023 OUTPATIENT VISIT TYPE CONSULTATION PRIMARY CARE PHYSICIAN: Jame Hunt [address] [place] [address] REFERRING PHYSICIAN Kel Victoria [address] [facility] [address] CHIEF COMPLAINT: Preop Evaluation HISTORY OF PRESENT ILLNESS: Cardiac consultation at the request of Dr. Kel Victoria.A copy of this consultation note will be provided to the requesting physician by way of shared Medical record or letter to requesting physician via US mail. Ms. Guerrier is a 67 year old female who is seen today for evaluation prior to renal transplant. Cardiac hx includes CAD s/p PCI in 2021. Has been on Plavix monotherapy recently. Has rare chest pain but chronic dyspnea. Minimally active due to lymphedema. She denies abdominal distention, orthopnea, cough, palpitations, PND, lightheadedness or syncope. PAST MEDICAL HISTORY Diagnosis Date Abdominal pain 12/21/2014 Diffuse abdominal pain x 6 days Worsened with palpation on LLQ and epigastric No diarrhea no vomiting no alcohol drink no sick contact no change in stool no melena Ddx: viral GI vs any intraabdominal pathology or infection in a setting of immunosuppressed patient Plan CT abd wo Levin culture Acute renal failure superimposed on stage 4 chronic kidney disease (HCC) 01/02/2020 Anemia Anemia in stage 4 chronic kidney disease (HCC) 12/17/2016 Anemia of chronic kidney failure, stage 4 (severe) (HCC) 12/11/2016 Anxiety Arthritis Krueger's palsy CAD (coronary artery disease) Cancer (HCC) uterine and cervical Celiac disease 2008 Cellulitis of back except buttock Cirrhosis of liver without mention of alcohol CKD (chronic kidney disease) Dialysis M/W/F [facility] COPD (chronic obstructive pulmonary disease) (HCC) Diabetes mellitus without mention of complication Diabetic polyneuropathy (HCC) 02/04/2017 Disorder of thyroid DVT (deep venous thrombosis) (HCC) Esophageal reflux Hammer toes, bilateral 11/30/2016 History of transfusion Hypertension Incisional hernia 12/30/2008 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 Plan: - Continue Tacrolimus 1.5 mg BID - daily Tacrolimus levels - Continue Otezla 30 mg BID Lymphedema RAUL (obstructive sleep apnea) does not use CPAP Other and unspecified hyperlipidemia Other lymphedema runs in family PMH - PAST MEDICAL HISTORY OF 1998 endometrial cancer, had complete hysterectomy Psoriasis and similar disorders [place]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 No colitis. Poor rectal sphincter tone. Referred to [facility]. COLONOSCOPY FLX DX W/COLLJ SPEC WHEN PFRMD 11/29/2011 [facility] /Dr. Anderson COLONOSCOPY FLX DX W/COLLJ SPEC WHEN PFRMD 07/2011 J[facility] COLONOSCOPY FLX DX W/COLLJ SPEC WHEN PFRMD 09/2011 Dr. Lagunas [facility] ESOPHAGOGASTRODUODENOSCOPY TRANSORAL DIAGNOSTIC 12/2009 [facility] Janneth ESOPHAGOGASTRODUODENOSCOPY TRANSORAL DIAGNOSTIC 12/2010 [facility] Janneth FISTULA HERNIA REPAIR HX 12/2008 incisional hernia repair LVR ALTRNSPLJ ORTHOTOPIC PRTL/WHL DON ANY AGE 0507/2008 PAST SURGICAL HISTORY OF 1989 left ovary/cyst removal PAST SURGICAL HISTORY OF 1974 all teeth removed SKIN BIOPSY HX TOTAL ABDOMINAL HYSTERECT W/WO RMVL TUBE OVARY 1998 Hysterectomy, FRANSISCA -for endometrial cancer VAGINAL HYSTERECTOMY VASCULAR SURGERY PROCEDURE SOCIAL HISTORY Social History Tobacco Use Smoking status: Never Passive exposure: Yes Smokeless tobacco: Never Tobacco comments: Parents both smoked in childhood home. No household ETS since. Vaping Use Vaping Use: Never used Substance Use Topics Alcohol use: No Drug use: No FAMILY HISTORY Problem Relation Age of Onset Cancer Father age 73 lung CA Stroke Father Ischemic Heart Disease Father [place] age 70s Diabetes Mother age 76 other (Dementia) Mother other (CHF) Mother other (Lymphedema) Mother other (renal failure) Mother Psoriasis Brother other (cirrhosis) Brother from aneurysm at age 38 other (psoriasis) Brother ALLERGIES: ALLERGIES Allergen Reactions Amlodipine Hives Buspirone Hives, Unknown Clindamycin Vomiting Lisinopril Swelling Omeprazole Other: See Comments Sulbactam Hives Sulfa (Sulfonamide * Hives Tramadol Vomiting Buspar [Buspirone H* Hives Doxylamine Succinate Unknown Duricef [Cefadroxil] Hives Keflex [Cephalexin] Rash rash but unsure if it is from keflex Losartan Swelling Naprosyn [Naproxen] Other: See Comments lowers platelets Niaspan [Niacin] Hives Unasyn [Ampicillin-* Hives MEDICATIONS: HYDROcodone-acetaminophen (NORCO) 5-325 mg per tablet Take 1 tablet by mouth every 6 hours as needed for pain. sucralfate (CARAFATE) 1 gram tablet Take 1 tablet by mouth two times a day. insulin aspart U-100 (NOVOLOG U-100 INSULIN ASPART) 100 unit/mL Inject 10 units three times daily before meals ondansetron orally disintegrating (ZOFRAN ODT) 4 mg disintegrating tablet Take 1 tablet by mouth every 6 hours as needed for nausea/vomiting. gabapentin (NEURONTIN) 100 mg capsule Take 2 capsules by mouth daily at bedtime for [address] (PROTONIX) 40 mg tablet Take 1 tablet by mouth once daily. As needed for upset stomach diclofenac (VOLTAREN) 1 % topical gel Apply 4 g to affected area four times daily. midodrine (PROAMATINE) 10 mg tablet Take 10 mg by mouth. Taking Mon, Sat and Sat before dialysis insulin glargine (LANTUS U-100 INSULIN) 100 unit/mL injection Inject 35 Units subcutaneously twice daily. Via Syringe (Patient taking differently: Inject 34 Units subcutaneously every morning. Via Syringe) hydrOXYzine HCl (ATARAX) 25 mg tablet Take 0.5 tablets by mouth every 6 hours as needed for itching/rash. Lancets lancets Test 4 times daily, Insulin Dep? Yes E11.9 DM 2 blood sugar diagnostic (BLOOD GLUCOSE TEST) test strip Test 4 times daily, Insulin Dep? Yes E11.9 DM 2 hydrocortisone 1 % ointment Apply to affected area twice daily. (Patient taking differently: Apply to affected area as needed.) clopidogrel (PLAVIX) 75 mg tablet Take 1 tablet by mouth once daily. levothyroxine (LEVOXYL) 88 mcg tablet Take 1 tablet by mouth once daily. Take on empty stomach. For Thyroid rOPINIRole (REQUIP) 1 mg tablet Take one tab in the morning and 2 in the evening traZODone (DESYREL) 100 mg tablet Take 2 tablets by mouth daily at bedtime. tacrolimus IR (PROGRAF) 0.5 mg capsule Take 1 capsule by mouth twice daily. Insulin Syringe-Needle U-100 0.5 mL 31 gauge x 5/16 Use to inject insulin 5 times daily as directed. nitroglycerin sublingual (NITROQUICK) 0.4 mg SL tablet Dissolve 1 tablet under the tongue every 5 minutes as needed for chest pain. apremilast (OTEZLA) 30 mg tablet Take 1 tablet by mouth once daily. atorvastatin (LIPITOR) 10 mg tablet Take 1 tablet by mouth once daily. carvedilol (COREG) 12.5 mg tablet Take 1 tablet by mouth twice daily. (Patient taking differently: Take 6.25 mg by mouth two times a day with meals.) sertraline (ZOLOFT) 50 mg tablet Take 1 tablet by mouth once daily. torsemide (DEMADEX) 20 mg tablet Take 3 tablets by mouth once daily. Blood-Glucose Meter,Continuous (DEXJigsaw Meeting G7 CHIP BIN OPERATOR) mis Use to check blood sugar at least four (4) times daily. Blood-Glucose Sensor (DEXCOM G7 SENSOR) brady Apply new sensor every ten (10) days. loperamide HCl (LOPERAMIDE ORAL) Take 4 mg by mouth as needed. albuterol HFA (PROVENTIL HFA, VENTOLIN HFA) 90 mcg/actuation inhaler Inhale 2 Puffs as instructed every 4 hours as needed. diphenoxylate-atropine (LOMOTIL) 2.5-0.025 mg per tablet As needed melatonin 5 mg tablet Take 10 mg by mouth daily at bedtime. sevelamer carbonate (RENVELA) 800 mg tablet Take by mouth. Taking 2 tablet with breakfast, 2 tablet with lunch, and 2 tablets with dinner as directed. B Complex-Vitamin C-Folic Acid (RENAL VITAMIN) 0.8 mg tab Take 1 tablet by mouth once daily. cholecalciferol (VITAMIN D3) 1,000 unit tab tablet Take 1,000 Units by mouth twice daily. vitamin B complex (B COMPLEX-VITAMIN B12 ORAL) Take 5,000 mcg by mouth once daily. + Nebulizer Supplies Nebulizer, Mask, & O2 Tubing. Use as directed. REVIEW OF SYSTEMS: Positives in bold GENERAL: Negative for: Weight loss or gain, Fever or Chills, Weakness and Sleep difficulties. HEENT: Negative for: Headache, Impaired Vision, Glasses, Hearing Impairment, Ringing in Ears, Nosebleeds, Poor dental care, Bleeding Gums, Dentures NECK: Negative for: Swelling, Pain, Stiffness RESPIRATORY: Negative for: Cough, Blood in Sputum, Shortness of breath, Wheezing, Apnea GASTROINTESTINAL: Negative for: Trouble swallowing, Heartburn, Change in bowel habits, Blood in stool, Dark black stools MUSCULOSKELETAL: Negative for: Muscle or joint pain, Stiffness , Joint swelling NEUROLOGIC/PSYCHIATRIC: Negative for: Weakness, Paralysis, Numbness, Tingling, Tremor, Nervousness, Depressed mood, Memory loss SKIN: Negative for: Rashes, Itching HEMATOLOGICAL/LYMPHATIC: Negative for: Easy bruising , Easy bleeding ENDOCRINE: Negative for: Heat or cold intolerance, Excessive sweating, Frequent urination, Frequent thirst PHYSICAL EXAMINATION: BP 156/66 (BP Site: Right Arm) Pulse 85 Wt 116 kg (255 lb 11.7 oz) SpO2 98% BMI 41.91 kg/m General: Well appearing, in no acute distress. Neck: No jugular venous distention, no carotid bruits, carotids have a normal upstroke, no palpable thyromegaly. Lungs: Clear to auscultation bilaterally, no wheezing or rhonchi. Heart: Regular rhythm, PMI not displaced, S1, S2 normal, no S3, no S4, no heaves, no rub and no murmur. Extremities: No peripheral edema . Grade 2/4 distal pulses bilaterally. Neuro: Oriented to person, place and time, alert, cooperative, gait coordinated. CARDIOVASCULAR MEDICINE TESTING: Electrocardiogram 01/10/2023: Heart Catheterization 04/2021: DIAGNOSTIC FINDINGS + + Coronary Anatomy: Right Dominant Injection Site(s): Coronary Artery and Left Ventricle LMT: _ The LMT has mild diffuse disease. LAD: _ The proximal LAD is narrowed 70 % - severe diffuse disease and moderately calcified. _ The mid LAD is narrowed 90 % - severe diffuse disease and severely calcified. LCX: _ The proximal circumflex is narrowed 90 % - focal disease. RAMUS: _ Ramus Status: Not Applicable. RCA: _ RCA Status: Not Applicable. Additional Comment: Large-caliber dominant vessel with mild diffuse calcified disease. + + IMPRESSION/PLAN + + Impression: Severe disease of the proximal LAD estimated 70% luminal narrowing with a focal 90% stenosis after the bifurcation of a large diagonal branch, severe disease in the proximal left circumflex estimated 90% stenosis before the bifurcation of a large obtuse marginal branch. Large dominant right coronary artery with mild diffuse disease. Recommended Treatment: Medical Therapy and PCI. Plan: PCI of the LCx and LAD + + PCI SUMMARY + + Procedures Performed: Procedural Details: PLAN +----+ Aspirin 81mg/day indefinitely, Ticagrelor 90mg BID for at least one year, Continued medical therapy, Aggressive risk factor modification, Cardiac rehabilitation and Transferred to cardiac stepdown in stable condition Echocardiogram 04/04/2021: CONCLUSIONS: - Technically difficult exam due to body habitus. - Exam indication: Abnormal cardiac stress test - The left ventricle is normal in size. There is mild concentric left ventricular hypertrophy. Left ventricular systolic function is mildly decreased. EF = 53 5% (2D biplane) Definity contrast used for endocardial border detection. Normal left ventricular diastolic function. - The right ventricle is normal in size. Right ventricular systolic function is normal. - The left atrial cavity is mildly dilated. - There are no significant valvular abnormalities. - The patient has not had a prior CC echocardiographic exam for comparison. Heart Catheterization- Diagnostic 04/04/2021: DIAGNOSTIC FINDINGS + + Coronary Anatomy: Right Dominant Injection Site(s): Coronary Artery and Left Ventricle LMT: _ The LMT has mild diffuse disease. LAD: _ The proximal LAD is narrowed 70 % - severely calcified. _ The mid LAD is narrowed 90 % - severe diffuse disease and severely calcified. Additional Comment: Large-caliber vessel. The proximal vessel is severely calcified with diffuse luminal narrowing up to 60 to 70%. LAD has a focal 90 to 99% stenosis with heavy calcification just past the bifurcation of the large diagonal branch. The diagonal branch has a diffuse 40% proximal stenosis. The mid and distal LAD has mild diffuse disease. LCX: _ The proximal circumflex is narrowed 90 % - severe diffuse disease and moderately calcified. Additional Comment: Large caliber nondominant vessel. The proximal vessel has an eccentric calcified 90% stenosis. The AV groove circumflex is small in caliber. Large obtuse marginal branch which bifurcates on the lateral wall. There is a diffuse 40 to 50% proximal stenosis before the bifurcation. RAMUS: _ Ramus Status: Not Applicable. RCA: _ The RCA has mild diffuse disease. Additional Comment: Large-caliber dominant vessel with mild diffuse calcified disease. Left Ventriculogram:LVEF: 60% Wall Motion: Grossly normal + + IMPRESSION/PLAN + + Impression: Severe disease of the proximal LAD estimated 70% luminal narrowing with a focal 90% stenosis after the bifurcation of a large diagonal branch, severe disease in the proximal left circumflex estimated 90% stenosis before the bifurcation of a large obtuse marginal branch. Large dominant right coronary artery with mild diffuse disease. Normal left ventricular function ejection fraction 60% Recommended Treatment: CABG and Medical Therapy. Plan: Evaluation by cardiothoracic surgery for consideration of coronary bypass grafting NM Cardiac Perfusion Stress/Pharm 12/07/2019: CONCLUSIONS: 1. SPECT Perfusion Study: Abnormal. 2. There is no scintigraphic evidence for inducible ischemia. 3. There is mild (<10%) ischemia in the territory of the LAD. 4. There is a moderate (10-20%) fixed perfusion defect in the RCA territory. 5. This is an intermediate risk scan. LVEF % 55 I have personally reviewed the Electrocardiogram and Cardiac Catheterization/Percutaneous Coronary Intervention (PCI). IMPRESSION: Ms. Guerrier is a 67 year old female with CAD s/p PCI here for preop evaluation prior to renal transplant. PLAN AND RECOMMENDATIONS: Patient revascularized relatively recently and does not have any sx's concerning for recurrence at this point. EF is preserved and no significant valvular disease. At this point she can proceed with transplant listing from a cardiac perspective. Recommend stress testing in 1 year. She is currently on Plavix monotherapy. Discussed that she needs at all times either ASA or Plavix. After our discussion, she will stop Plavix and start ASA 81mg daily. She will have ongoing follow up close to her home. I personally interviewed, confirmed and edited the above information as obtained by others. CONTACT INFORMATION: Lizeth Bey MD, [facility] Section of Clinical Cardiology [facility] Department of Cardiovascular Medicine Heart and Vascular [facility] Desk [id number] [address] Office - [phone] extension [phone] Office Appointments: [phone] extension [phone] Voice recognition software was used in the creation of this document. There may be unintended errors in spelling, grammar, syntax or punctuation present. documented in this encounter [facility] 01-10-2023 Note [facility] 01-10-2023 History of Present illness Narrative NAME: Christina Guerrier [facility] NO: [id number] REFERRING PHYSICIAN: Kel Victoria PRESENTING COMPLAINT: Pre-kidney transplant education HPI: Christina Guerrier is a 67 year old female is here for pre-kidney transplant education: Use of Organs from Donors Infected with Hepatitis C. The patient has never had bariatric surgery The patient has never had or been treated for Hepatitis C Patient is s/p liver Tx Hep B surface Ag positive - likely due to recent Hepatitis B immunization, will re-check labs Christina Guerrier wishes to pursue the option of obtaining a HCV positive organ. Advantages and disadvantages of HCV viremic donor transplantation were reviewed. Patient received education on the risk of transmission of HCV following HCV viremic donor transplantation, the natural history of HCV, current therapies for HCV, side effects of therapy, and need for monitoring during and after therapy for HCV. Provided pt with educational slide packet and handout titled Transplantation of Hepatitis C Viremic Organs into Hepatitis C Negative Recipients . The risks of HCV transmission post-transplant, fibrosing cholestatic HCV, treatment failure, chronic HCV, cirrhosis and hepatic and non-hepatic manifestations of acute and chronic HCV were specifically discussed. Ms. Guerrier verbalized understanding of the risks and benefits of receiving a hepatitis C viremic organ, and provided verbal consent to be enrolled in the protocol. All of their questions were answered. Follow up as needed. Please contact sooner if you have questions or problems develop. Amadeo Everett APRN.CNP January 08, 2023 5:39 PM documented in this encounter [facility] 01-09-2023 Note [facility] 01-09-2023 History of Present illness Narrative CC: Patient presents with: ED Follow-up HPI Christina Guerrier is a 67 year old female who presents today for ER follow-up. Facility: [facility] Er on both 12/26 and 12/31 for abdominal pain and vomiting. Was last seen in this office 12/27 for first ER visit. Had been having difficulty regulating blood sugars with her inability to eat and her insulin. Is on a lower dose of insulin at this time and denies any low blood sugars. Has an EGD in a few weeks at [facility] with Dr. Lerner as there is concern for possible ulceration. Has also noticed her blood counts at dialysis have slightly decreased. States today it was eight 8.6 or 8.8 and she got iron. This is checked monthly and last month was 9.5. Denies dark sticky stools or blood in stool. Still with epigastric abdominal pain all the time that worsens with eating and is always nauseated. Was given sucralfate in ER which is helping with the nausea but not much improvement in pain. Denies change in energy, fever, chills, shortness of breath, chest pressure, edema, new weakness, dizziness, syncope, edema, vomiting, or bowel changes. Chronic right knee pain which she is requesting a refill on her [place] as it is flaring up and with her kidney function she is unable to take NSAIDs. REVIEW OF SYSTEMS See HPI PAST MEDICAL HISTORY Diagnosis Date Abdominal pain 12/21/2014 Diffuse abdominal pain x 6 days Worsened with palpation on LLQ and epigastric No diarrhea no vomiting no alcohol drink no sick contact no change in stool no melena Ddx: viral GI vs any intraabdominal pathology or infection in a setting of immunosuppressed patient Plan CT abd wo Levin culture Acute renal failure superimposed on stage 4 chronic kidney disease (HCC) 01/02/2020 Anemia Anemia in stage 4 chronic kidney disease (HCC) 12/17/2016 Anemia of chronic kidney failure, stage 4 (severe) (HCC) 12/11/2016 Anxiety Arthritis Krueger's palsy CAD (coronary artery disease) Cancer (HCC) uterine and cervical Celiac disease 2007 Cellulitis of back except buttock Cirrhosis of liver without mention of alcohol CKD (chronic kidney disease) Dialysis M/W/F [facility] COPD (chronic obstructive pulmonary disease) (HCC) Diabetes mellitus without mention of complication Diabetic polyneuropathy (HCC) 02/04/2017 Disorder of thyroid DVT (deep venous thrombosis) (HCC) Esophageal reflux Hammer toes, bilateral 11/30/2016 History of transfusion Hypertension Incisional hernia 12/30/2008 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 Plan: - Continue Tacrolimus 1.5 mg BID - daily Tacrolimus levels - Continue Otezla 30 mg BID Lymphedema RAUL (obstructive sleep apnea) does not use CPAP Other and unspecified hyperlipidemia Other lymphedema runs in family PMH - PAST MEDICAL HISTORY OF 1998 endometrial cancer, had complete hysterectomy Psoriasis and similar disorders 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 No colitis. Poor rectal sphincter tone. Referred to Oriana Newberry. COLONOSCOPY FLX DX W/COLLJ SPEC WHEN PFRMD 11/29/2011 [facility] Main /Dr. Anderson COLONOSCOPY FLX DX W/COLLJ SPEC WHEN PFRMD 07/2011 Janneth COLONOSCOPY FLX DX W/COLLJ SPEC WHEN PFRMD 09/2011 Dr. Lagunas [facility] ESOPHAGOGASTRODUODENOSCOPY TRANSORAL DIAGNOSTIC 12/2009 [facility] Janneth ESOPHAGOGASTRODUODENOSCOPY TRANSORAL DIAGNOSTIC 12/2010 [facility] Janneth FISTULA HERNIA REPAIR HX 12/2008 incisional hernia repair LVR ALTRNSPLJ ORTHOTOPIC PRTL/WHL DON ANY AGE 0507/2008 PAST SURGICAL HISTORY OF 1989 left ovary/cyst removal PAST SURGICAL HISTORY OF 1974 all teeth removed SKIN BIOPSY HX TOTAL ABDOMINAL HYSTERECT W/WO RMVL TUBE OVARY 1998 Hysterectomy, FRANSISCA -for endometrial cancer VAGINAL HYSTERECTOMY VASCULAR SURGERY PROCEDURE ALLERGIES Clindamycin, Buspar [Buspirone Hcl], Duricef [Cefadroxil], Keflex [Cephalexin], Lisinopril, Losartan, Naprosyn [Naproxen], Niaspan [Niacin], Sulfa (Sulfonamide Antibiotics), and Unasyn [Ampicillin-Sulbactam] MEDICATIONS insulin aspart U-100 (NOVOLOG U-100 INSULIN ASPART) 100 unit/mL Inject 10 units three times daily before meals ondansetron orally disintegrating (ZOFRAN ODT) 4 mg disintegrating tablet Take 1 tablet by mouth every 6 hours as needed for nausea/vomiting. gabapentin (NEURONTIN) 100 mg capsule Take 2 capsules by mouth daily at bedtime for 180 days. midodrine (PROAMATINE) 10 mg tablet Take 10 mg by mouth. Taking Mon, Sat and Sat before dialysis insulin glargine (LANTUS U-100 INSULIN) 100 unit/mL injection Inject 35 Units subcutaneously twice daily. Via Syringe clopidogrel (PLAVIX) 75 mg tablet Take 1 tablet by mouth once daily. levothyroxine (LEVOXYL) 88 mcg tablet Take 1 tablet by mouth once daily. Take on empty stomach. For Thyroid rOPINIRole (REQUIP) 1 mg tablet Take one tab in the morning and 2 in the evening traZODone (DESYREL) 100 mg tablet Take 2 tablets by mouth daily at bedtime. tacrolimus IR (PROGRAF) 0.5 mg capsule Take 1 capsule by mouth twice daily. Insulin Syringe-Needle U-100 0.5 mL 31 gauge x 5/16 Use to inject insulin 5 times daily as directed. nitroglycerin sublingual (NITROQUICK) 0.4 mg SL tablet Dissolve 1 tablet under the tongue every 5 minutes as needed for chest pain. apremilast (OTEZLA) 30 mg tablet Take 1 tablet by mouth once daily. atorvastatin (LIPITOR) 10 mg tablet Take 1 tablet by mouth once daily. carvedilol (COREG) 12.5 mg tablet Take 1 tablet by mouth twice daily. sertraline (ZOLOFT) 50 mg tablet Take 1 tablet by mouth once daily. torsemide (DEMADEX) 20 mg tablet Take 3 tablets by mouth once daily. Blood-Glucose Meter,Continuous (DEXCOM G7 CHIP BIN OPERATOR) [facility] [place] to check blood sugar at least four (4) times daily. Blood-Glucose Sensor (DEXCOM G7 SENSOR) brady Apply new sensor every ten (10) days. albuterol HFA (PROVENTIL HFA, VENTOLIN HFA) 90 mcg/actuation inhaler diphenoxylate-atropine (LOMOTIL) 2.5-0.025 mg per tablet As needed melatonin 5 mg tablet Take 10 mg by mouth daily at bedtime. sevelamer carbonate (RENVELA) 800 mg tablet Take by mouth. Taking 2 tablet with breakfast, 2 tablet with lunch, and 2 tablets with dinner as directed. B Complex-Vitamin C-Folic Acid (RENAL VITAMIN) 0.8 mg tab Take 1 tablet by mouth once daily. cholecalciferol (VITAMIN D3) 1,000 unit tab tablet Take 1,000 Units by mouth twice daily. vitamin B complex (B COMPLEX-VITAMIN B12 ORAL) Take 5,000 mcg by mouth once daily. Ascorbic Acid 1,000 mg tablet Take 1,000 mg by mouth once daily. + Nebulizer Supplies Nebulizer, Mask, & O2 Tubing. Use as directed. HYDROcodone-acetaminophen (NORCO) 5-325 mg per tablet Take 1 tablet by mouth every 6 hours as needed for pain. sucralfate (CARAFATE) 1 gram tablet Take 1 tablet by mouth two times a day. pantoprazole DR (PROTONIX) 40 mg tablet Take 1 tablet by mouth once daily. As needed for upset stomach diclofenac (VOLTAREN) 1 % topical gel Apply 4 g to affected area four times daily. (Patient not taking: Reported on 12/03/2022) hydrOXYzine HCl (ATARAX) 25 mg tablet Take 0.5 tablets by mouth every 6 hours as needed for itching/rash. Lancets lancets Test 4 times daily, Insulin Dep? Yes E11.9 DM 2 blood sugar diagnostic (BLOOD GLUCOSE TEST) test strip Test 4 times daily, Insulin Dep? Yes E11.9 DM 2 hydrocortisone 1 % ointment Apply to affected area twice daily. loperamide HCl (LOPERAMIDE ORAL) Take 4 mg by mouth as needed. FAMILY HISTORY Problem Relation Age of Onset Cancer Father age 73 lung CA Stroke Father Ischemic Heart Disease Father [place] age 70s Diabetes Mother age 76 other (Dementia) Mother other (CHF) Mother other (Lymphedema) Mother other (renal failure) Mother Psoriasis Brother other (cirrhosis) Brother from aneurysm at age 38 other (psoriasis) Brother Social History Tobacco Use Smoking status: Never Passive exposure: Yes Smokeless tobacco: Never Tobacco comments: Parents both smoked in childhood home. No household ETS since. Vaping Use Vaping Use: Never used Substance Use Topics Alcohol use: No Drug use: No PHYSICAL EXAM BP 126/60 (BP Site: Right Arm, BP Position: Sitting, BP Cuff Size: Large Adult) Pulse 87 Temp 36.2 C (97.2 F) Resp 18 Ht 166.4 cm (5' 5.5 ) Wt 115.2 kg (254 lb) SpO2 99% BMI 41.62 kg/m General Appearance: well appearing, in no acute distress, alert Pysch: mood and affect broad and appropriate Skin: Skin color, texture, turgor normal for age; Eyes: conjunctiva pink and moist, no icterus, sclera white, non-injected Lungs: Lungs clear to auscultation. No wheezing, rhonchi, rales. Heart: RRR without murmur, gallop, or rubs. No ectopy Abdomen: Abdomen soft, non-tender. Bowel sounds normal. No masses, organomegaly RSV Vaccine(1 - 1-dose 60+ series) Never done Covid-19 Vaccine(2022- season) due on 11/02/2022 Pap Testing due on 10/23/2023 Dilated Retinal Exam due on 05/01/2023 Mammogram Screening due on 05/09/2023 HbA1C due on 05/27/2023 Diabetic Foot Exam due on 09/01/2023 Hepatitis B Vaccine(14 of 14 - Risk Dialysis 4-dose series) due on 10/16/2023 BP Controlled (<130/80) due on 10/23/2023 Annual PCP Team Chronic Disease Visit due on 12/28/2023 LDL Cholesterol due on 01/09/2024 Serum Creatinine due on 01/09/2024 Hemoglobin/Hematocrit due on 01/09/2024 Colorectal Cancer Screening due on 09/13/2027 DTaP,Tdap,Td Vaccine(3 - Td or Tdap) due on 12/31/2028 Bone Density Screening Completed Influenza Vaccine Completed Advance Directive Discussion Completed Depression Assessment Completed Hepatitis C Screening Completed HIV Screening Completed Shingrix Vaccine Completed Pneumococcal Vaccine: 65+ Completed HPV Vaccine Aged Out DATA REVIEWED: Outside chart from [facility] reviewed. ASSESSMENT/PLAN: 1. Epigastric pain - ICD9: 789.06, ICD10: R10.13 (primary diagnosis) - stable Carafate refilled while awaiting EGD - did not order reji further blood work as she gets this drawn on Mondays at dialysis - go to ER for any vomiting, increased pain, lethargy, shortness of breath, or any urgent concerns. - follow up in 6 weeks. 2. Nausea - ICD9: 787.02, ICD10: R11.0 As above 3. Left knee pain, unspecified chronicity - ICD9: 719.46, ICD10: M25.562 - refilled - HYDROCODONE 5 MG-ACETAMINOPHEN 325 MG TABLET PDMP website checked and validated. All prescriptions have been APPROPRIATELY filled. No suspicious activity was identified. 01/09/2023 by Silva Plasencia APRN.CNP 4. Medication management - ICD9: V58.69, ICD10: Z79.899 - not been check in 1 year - TACROLIMUS/FK-506 BL 5. Encounter for immunization - ICD9: V03.89, ICD10: Z23 - PFIZER-BIONTECH COVID-19 VACCINE (2022- [place]) AGE 12+ YR Prescription instructions reviewed with patient as applicable. Potential red flag symptoms discussed with the patient. Reviewed appropriate action plan to take if red flag symptoms occur. Patient agreeable to treatment plan. Silva Plasencia APRN.CNP documented in this encounter [facility] 01-09-2023 Miscellaneous Notes Labs faxed to Dr Lerner office. Labs are in process Pt needs lab results that were drawn on 01/08/2023 to be faxed to Dr. Lerner/Dr. Maurer Phone # [phone] documented in this encounter [facility] 01-08-2023 Miscellaneous Notes Samanta with [facility] calls to request most recent labs be faxed to: [phone]. Results faxed as requested. Monica Carter LPN documented in this encounter [facility] 01-04-2023 Note [facility] 01-04-2023 History of Present illness Narrative Images from the original note were not included. Primary Care Pharmacy Visit CC (Reason for Consult): (E11.00, Z79.4) Type 2 diabetes mellitus with hyperosmolarity 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, with long-term current use of insulin ([facility]) Goal(s): A1c < 8% Last Collaborating Physician Visit: 12/27/22 Christina Guerrier is a 67 year old female presenting for follow up visit telephone call. Patient consents to pharmacy collaborative practice agreement. . At visit with PROPERTY MANAGEMENT COORDINATOR on 12/26 the following changes were made: instructed Decrease lantus to half dose if not consistently eating. Do NOT take the 25mg novolog if not eating and go by sliding scale only. At last visit with PROPERTY MANAGEMENT COORDINATOR on 12/27, was instructed that she may start back on full lantus dose. HPI: Reports she has been in the ER twice in recent weeks - referred to a GI office, will be seen at Dr. Lerner's office (will see Dr. Pérez this time ) Having really bad stomach pain and has not received clear diagnosis yet Hoping to get better answers soon Due to pain, has been less able to have consistent meals, has had to decrease insulin substantially Taking insulins differently than on med list: - Lantus 17 units twice daily - Novolog 10 units three times daily with meals, skips if not eating meals DIET/EXERCISE/SOCIAL Hx: Very limited currently Breakfast: skips Lunch: baked potato Dinner: baked potato Snacks: occasional pudding Beverages: orange crush zero (takes 2 days to finish the cans) Exercise: limited GLYCEMIC CONTROL: NETpeas CLARITY SHARE CODE - [id number] Past medical history reviewed. MEDICATIONS: Adherence: denies missed doses ALLERGIES Allergen Reactions Clindamycin Vomiting Buspar [Buspirone H* Hives Duricef [Cefadroxil] Hives Keflex [Cephalexin] Rash rash but unsure if it is from keflex Lisinopril Swelling Losartan Swelling Naprosyn [Naproxen] Other: See Comments lowers platelets Niaspan [Niacin] Hives Sulfa (Sulfonamide * Hives Unasyn [Ampicillin-* Hives Current Outpatient Medications Medication Sig Dispense Refill ondansetron orally disintegrating (ZOFRAN ODT) 4 mg disintegrating tablet Take 1 tablet by mouth every 6 hours as needed for nausea/vomiting. 15 tablet 1 gabapentin (NEURONTIN) 100 mg capsule Take 2 capsules by mouth daily at bedtime for 180 days. [address] (PROTONIX) 40 mg tablet Take 1 tablet by mouth once daily. As needed for upset stomach 90 tablet 1 diclofenac (VOLTAREN) 1 % topical gel Apply 4 g to affected area four times daily. (Patient not taking: Reported on 12/03/2022) 100 g 1 insulin aspart U-100 (NOVOLOG U-100 INSULIN ASPART) 100 unit/mL Inject 25 units before breakfast, 25 units before lunch, and 25 units before dinner. Plus sliding scale (2 units for every 50 mg/dL above 150 mg/dL) 20 mL 0 HYDROcodone-acetaminophen (NORCO) 5-325 mg per tablet Take 1 tablet by mouth every 6 hours as needed for pain. 28 tablet 0 midodrine (PROAMATINE) 10 mg tablet Take 10 mg by mouth. Taking Mon, Sat and Sat before dialysis insulin glargine (LANTUS U-100 INSULIN) 100 unit/mL injection Inject 35 Units subcutaneously twice daily. Via Syringe 10 mL 3 hydrOXYzine HCl (ATARAX) 25 mg tablet Take 0.5 tablets by mouth every 6 hours as needed for itching/rash. 60 tablet 2 Lancets lancets Test 4 times daily, Insulin Dep? Yes E11.9 DM 2 200 Each 4 blood sugar diagnostic (BLOOD GLUCOSE TEST) test strip Test 4 times daily, Insulin Dep? Yes E11.9 DM 2 300 Strip 4 hydrocortisone 1 % ointment Apply to affected area twice daily. 56 g 2 clopidogrel (PLAVIX) 75 mg tablet Take 1 tablet by mouth once daily. 90 tablet 3 levothyroxine (LEVOXYL) 88 mcg tablet Take 1 tablet by mouth once daily. Take on empty stomach. For Thyroid 90 tablet 3 rOPINIRole (REQUIP) 1 mg tablet Take one tab in the morning and 2 in the evening 270 tablet 3 traZODone (DESYREL) 100 mg tablet Take 2 tablets by mouth daily at bedtime. 180 tablet 1 tacrolimus IR (PROGRAF) 0.5 mg capsule Take 1 capsule by mouth twice daily. 180 capsule 3 Insulin Syringe-Needle U-100 0.5 mL 31 gauge x 5/16 Use to inject insulin 5 times daily as directed. 450 Each 3 nitroglycerin sublingual (NITROQUICK) 0.4 mg SL tablet Dissolve 1 tablet under the tongue every 5 minutes as needed for chest pain. 25 tablet 0 apremilast (OTEZLA) 30 mg tablet Take 1 tablet by mouth once daily. 90 tablet 3 atorvastatin (LIPITOR) 10 mg tablet Take 1 tablet by mouth once daily. 90 tablet 3 carvedilol (COREG) 12.5 mg tablet Take 1 tablet by mouth twice daily. 180 tablet 3 sertraline (ZOLOFT) 50 mg tablet Take 1 tablet by mouth once daily. 90 tablet 3 torsemide (DEMADEX) 20 mg tablet Take 3 tablets by mouth once daily. 270 tablet 3 Blood-Glucose Meter,Continuous (DEXJigsaw [place] G7 CHIP BIN OPERATOR) [facility] [place] to check blood sugar at least four (4) times daily. 1 Each 0 Blood-Glucose Sensor (DEXCOM G7 SENSOR) brady Apply new sensor every ten (10) days. 9 Each 3 loperamide HCl (LOPERAMIDE ORAL) Take 4 mg by mouth as needed. albuterol HFA (PROVENTIL HFA, VENTOLIN HFA) 90 mcg/actuation inhaler diphenoxylate-atropine (LOMOTIL) 2.5-0.025 mg per tablet As needed melatonin 5 mg tablet Take 10 mg by mouth daily at bedtime. sevelamer carbonate (RENVELA) 800 mg tablet Take by mouth. Taking 2 tablet with breakfast, 2 tablet with lunch, and 2 tablets with dinner as directed. B Complex-Vitamin C-Folic Acid (RENAL VITAMIN) 0.8 mg tab Take 1 tablet by mouth once daily. cholecalciferol (VITAMIN D3) 1,000 unit tab tablet Take 1,000 Units by mouth twice daily. vitamin B complex (B COMPLEX-VITAMIN B12 ORAL) Take 5,000 mcg by mouth once daily. Ascorbic Acid 1,000 mg tablet Take 1,000 mg by mouth once daily. + Nebulizer Supplies Nebulizer, Mask, & O2 Tubing. Use as directed. 1 Each 12 No current facility-administered medications for this visit. EXAM: There were no vitals taken for this visit. Last 3 Encounter BP Readings: Date: BP: 12/27/2022 136/58 11/26/2022 136/56 11/07/2022 147/46 Wt: 114.8 kg (253 lb) BMI: 41.46 kg/(m^2) LABS: reviewed Lab Results Component Value Date HBA1C 5.2 11/26/2022 HBA1C 6.5 05/02/2022 HBA1C 6.0 10/20/2021 HBA1C 7.3 05/10/2021 HBA1C 7.2 11/15/2020 HBA1C 6.6 05/05/2020 HBA1C 8.0 01/02/2020 Glucose 216 11/26/2022 BUN 17 11/26/2022 Creatinine 4.39 11/26/2022 Sodium 135 11/26/2022 Potassium 4.4 11/26/2022 Chloride 93 11/26/2022 CO2 Content, Venous 30 11/26/2022 Protein, Total 6.2 11/26/2022 Albumin 3.6 11/26/2022 Calcium 8.6 11/26/2022 Alkaline Phosphatase 101 11/26/2022 Bilirubin, Total 0.4 11/26/2022 AST 22 11/26/2022 ALT 24 11/26/2022 Lab Results Component Value Date CHOL 134 11/26/2022 CHOL 145 04/12/2021 LDL 11/26/2022 Comment: Unable to calculate due to increased Triglycerides. See LDL-Chol, Direct. LDL 43 04/12/2021 HDL 23 11/26/2022 HDL 32 04/12/2021 TG 456 11/26/2022 TG 349 04/12/2021 Albumin/Creat Ratio (mg/g) Date Value 05/19/2020 254 (H) GFR (RENFUN) (mL/min/1.73m2) Date Value 02/18/2008 52 eGFR- (no units) Date Value 04/12/2021 24 ASSESSMENT/PLAN: 1. Type 2 diabetes mellitus with hyperosmolarity 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, with long-term current use of insulin (HCC) - ICD9: 250.20, V58.67, ICD10: E11.00, Z79.4 - Controlled. A1c goal <8%. A1c at goal at last check, however may be falsely low due to low hemoglobin/hematocrit with recent CBC. SMBGs largely fluctuating. Taking lower doses of insulin due to recent GI concerns and very limited meals. Will continue same regimen of lowered insulin doses to prevent hypoglycemia. Today, discussed consolidating basal insulin to a once daily dose vs BID dosing, patient agreeable to decrease number of daily injections. - ADJUST Lantus to 34 units once daily - ADJUST Novolog 10 units TID with meals - Blood glucose monitoring on a continuous glucose monitoring schedule - INSULIN ASPART U-100 100 UNIT/ML SUBCUTANEOUS SOLUTION Follow up: Pharmacy follow up: 02/06/23 (with Kim La) PCP team follow up: 01/09/23 (with Silva plasencia) Charlotte Gurrola, PharmD, BCACP Primary Care Clinical Pharmacist The majority of the pharmacy visit (> 50%) was spent counseling and/or coordinating care for the patient. interaction: telephonic time was 20 minutes. documented in this encounter [facility] 12-27-2022 Note [facility] 12-27-2022 History of Present illness Narrative CC: Patient presents with: Recheck: ER follow up, abdominal pain HPI Christina Guerrier is a 67 year old female who presents today for ER follow-up. Facility: [facility] ER Date of visit: 12/26/22 Reason for visit: was sent to ER after a virtual visit with this provider for reports of severe abdominal pain, nausea, diarrhea, inability to eat resulting in low blood sugars. Hospital course: zofran and morphine. Lab work unremarkable and close to her baselines, CT of abdomen and pelvis showing spleenomegaly, renal atrophy, athersclerotic calcification Diagnosis: nausea and abdominal pain Discharge: no med changes Current symptoms: Has dialysis today as she had to miss yesterday because she was so ill. After ER she remembers she at a pudding and a baked potato without difficulty but had abdominal pain and nausea after eating 2 donut holes. Abdominal pain and nausea resolved with zofran. Still with fatigue. Denies fever today, no further diarrhea, and blood sugar this morning was 116. Has been taking her lantus at half dose and only using sliding scale if not eating. Denies shortness of breath, new swelling, chest pressure, headaches, cough, wheezing, edema, dizziness, weakness, or syncope. REVIEW OF SYSTEMS General: no fevers, no chills, no night sweats, no recurrent infections, and no significant changes in weight Respiratory: no cough, no wheezing, no shortness of breath, no hemoptysis Cardiovascular: no chest pain, no chest pressure, no palpitations, and no swelling Neurologic: No headache, weakness, dizziness, memory loss, syncope. PAST MEDICAL HISTORY Diagnosis Date Abdominal pain 12/21/2014 Diffuse abdominal pain x 6 days Worsened with palpation on LLQ and epigastric No diarrhea no vomiting no alcohol drink no sick contact no change in stool no melena Ddx: viral GI vs any intraabdominal pathology or infection in a setting of immunosuppressed patient Plan CT abd wo Levin culture Acute renal failure superimposed on stage 4 chronic kidney disease (HCC) 01/02/2020 Anemia Anemia in stage 4 chronic kidney disease (HCC) 12/17/2016 Anemia of chronic kidney failure, stage 4 (severe) (HCC) 12/11/2016 Anxiety Arthritis Krueger's palsy CAD (coronary artery disease) Cancer (HCC) uterine and cervical Celiac disease 2007 Cellulitis of back except buttock Cirrhosis of liver without mention of alcohol CKD (chronic kidney disease) Dialysis M/W/F [facility] COPD (chronic obstructive pulmonary disease) (HCC) Diabetes mellitus without mention of complication Diabetic polyneuropathy (HCC) 02/04/2017 Disorder of thyroid DVT (deep venous thrombosis) (HCC) Esophageal reflux Hammer toes, bilateral 11/30/2016 History of transfusion Hypertension Incisional hernia 12/30/2008 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 Plan: - Continue Tacrolimus 1.5 mg BID - daily Tacrolimus levels - Continue Otezla 30 mg BID Lymphedema RAUL (obstructive sleep apnea) does not use CPAP Other and unspecified hyperlipidemia Other lymphedema runs in family PMH - PAST MEDICAL HISTORY OF 1999 endometrial cancer, had complete hysterectomy Psoriasis and similar disorders [place]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 No colitis. Poor rectal sphincter tone. Referred to Oriana Newberry. COLONOSCOPY FLX DX W/COLLJ SPEC WHEN PFRMD 11/29/2011 [facility] Main /Dr. Anderson COLONOSCOPY FLX DX W/COLLJ SPEC WHEN PFRMD 07/2011 Janneth COLONOSCOPY FLX DX W/COLLJ SPEC WHEN PFRMD 09/2011 Dr. Lagunas [facility] ESOPHAGOGASTRODUODENOSCOPY TRANSORAL DIAGNOSTIC 12/2009 [facility] Janneth ESOPHAGOGASTRODUODENOSCOPY TRANSORAL DIAGNOSTIC 12/2010 [facility] Janneth FISTULA HERNIA REPAIR HX 12/2008 incisional hernia repair LVR ALTRNSPLJ ORTHOTOPIC PRTL/WHL DON ANY AGE 0507/2008 PAST SURGICAL HISTORY OF 1989 left ovary/cyst removal PAST SURGICAL HISTORY OF 1974 all teeth removed SKIN BIOPSY HX TOTAL ABDOMINAL HYSTERECT W/WO RMVL TUBE OVARY 1998 Hysterectomy, FRANSISCA -for endometrial cancer VAGINAL HYSTERECTOMY VASCULAR SURGERY PROCEDURE ALLERGIES Clindamycin, Buspar [Buspirone Hcl], Duricef [Cefadroxil], Keflex [Cephalexin], Lisinopril, Losartan, Naprosyn [Naproxen], Niaspan [Niacin], Sulfa (Sulfonamide Antibiotics), and Unasyn [Ampicillin-Sulbactam] MEDICATIONS ondansetron orally disintegrating (ZOFRAN ODT) 4 mg disintegrating tablet Take 1 tablet by mouth every 6 hours as needed for nausea/vomiting. gabapentin (NEURONTIN) 100 mg capsule Take 2 capsules by mouth daily at bedtime for [address] (PROTONIX) 40 mg tablet Take 1 tablet by mouth once daily. As needed for upset stomach diclofenac (VOLTAREN) 1 % topical gel Apply 4 g to affected area four times daily. (Patient not taking: Reported on 12/03/2022) insulin aspart U-100 (NOVOLOG U-100 INSULIN ASPART) 100 unit/mL Inject 25 units before breakfast, 25 units before lunch, and 25 units before dinner. Plus sliding scale (2 units for every 50 mg/dL above 150 mg/dL) HYDROcodone-acetaminophen (NORCO) 5-325 mg per tablet Take 1 tablet by mouth every 6 hours as needed for pain. midodrine (PROAMATINE) 10 mg tablet Take 10 mg by mouth. Taking Mon, Wed and Sat before dialysis insulin glargine (LANTUS U-100 INSULIN) 100 unit/mL injection Inject 35 Units subcutaneously twice daily. Via Syringe hydrOXYzine HCl (ATARAX) 25 mg tablet Take 0.5 tablets by mouth every 6 hours as needed for itching/rash. Lancets lancets Test 4 times daily, Insulin Dep? Yes E11.9 DM 2 blood sugar diagnostic (BLOOD GLUCOSE TEST) test strip Test 4 times daily, Insulin Dep? Yes E11.9 DM 2 hydrocortisone 1 % ointment Apply to affected area twice daily. clopidogrel (PLAVIX) 75 mg tablet Take 1 tablet by mouth once daily. levothyroxine (LEVOXYL) 88 mcg tablet Take 1 tablet by mouth once daily. Take on empty stomach. For Thyroid rOPINIRole (REQUIP) 1 mg tablet Take one tab in the morning and 2 in the evening traZODone (DESYREL) 100 mg tablet Take 2 tablets by mouth daily at bedtime. tacrolimus IR (PROGRAF) 0.5 mg capsule Take 1 capsule by mouth twice daily. Insulin Syringe-Needle U-100 0.5 mL 31 gauge x 5/16 Use to inject insulin 5 times daily as directed. nitroglycerin sublingual (NITROQUICK) 0.4 mg SL tablet Dissolve 1 tablet under the tongue every 5 minutes as needed for chest pain. apremilast (OTEZLA) 30 mg tablet Take 1 tablet by mouth once daily. atorvastatin (LIPITOR) 10 mg tablet Take 1 tablet by mouth once daily. carvedilol (COREG) 12.5 mg tablet Take 1 tablet by mouth twice daily. sertraline (ZOLOFT) 50 mg tablet Take 1 tablet by mouth once daily. torsemide (DEMADEX) 20 mg tablet Take 3 tablets by mouth once daily. Blood-Glucose Meter,Continuous (DEXCOM G7 CHIP BIN OPERATOR) [facility] [place] to check blood sugar at least four (4) times daily. Blood-Glucose Sensor (DEXCOM G7 SENSOR) brady Apply new sensor every ten (10) days. loperamide HCl (LOPERAMIDE ORAL) Take 4 mg by mouth as needed. albuterol HFA (PROVENTIL HFA, VENTOLIN HFA) 90 mcg/actuation inhaler diphenoxylate-atropine (LOMOTIL) 2.5-0.025 mg per tablet As needed melatonin 5 mg tablet Take 10 mg by mouth daily at bedtime. sevelamer carbonate (RENVELA) 800 mg tablet Take by mouth. Taking 2 tablet with breakfast, 2 tablet with lunch, and 2 tablets with dinner as directed. B Complex-Vitamin C-Folic Acid (RENAL VITAMIN) 0.8 mg tab Take 1 tablet by mouth once daily. cholecalciferol (VITAMIN D3) 1,000 unit tab tablet Take 1,000 Units by mouth twice daily. vitamin B complex (B COMPLEX-VITAMIN B12 ORAL) Take 5,000 mcg by mouth once daily. Ascorbic Acid 1,000 mg tablet Take 1,000 mg by mouth once daily. + Nebulizer Supplies Nebulizer, Mask, & O2 Tubing. Use as directed. FAMILY HISTORY Problem Relation Age of Onset Cancer Father age 73 lung CA Stroke Father Ischemic Heart Disease Father [place] age 70s Diabetes Mother age 76 other (Dementia) Mother other (CHF) Mother other (Lymphedema) Mother other (renal failure) Mother Psoriasis Brother other (cirrhosis) Brother from aneurysm at age 38 other (psoriasis) Brother Social History Tobacco Use Smoking status: Never Passive exposure: Yes Smokeless tobacco: Never Tobacco comments: Parents both smoked in childhood home. No household ETS since. Vaping Use Vaping Use: Never used Substance Use Topics Alcohol use: No Drug use: No PHYSICAL EXAM BP 136/58 Pulse 65 Temp 36.4 C (97.6 F) (Temporal) Resp 16 SpO2 93% General Appearance: well appearing, in no acute distress, alert Pysch: mood and affect broad and appropriate Skin: Skin color, texture, turgor normal for age; Eyes: conjunctiva pink and moist, no icterus, sclera white, non-injected Lungs: Lungs clear to auscultation. No wheezing, rhonchi, rales. Heart: RRR without murmur, gallop, or rubs. No ectopy Abdomen: Abdomen soft, non-tender. Bowel sounds normal. No masses, organomegaly RSV Vaccine(1 - 1-dose 60+ series) Never done Covid-19 Vaccine(2022- season) due on 11/02/2022 Pap Testing due on 10/23/2023 Dilated Retinal Exam due on 05/01/2023 Mammogram Screening due on 05/09/2023 HbA1C due on 05/27/2023 Diabetic Foot Exam due on 09/01/2023 Hepatitis B Vaccine(14 of 14 - Risk Dialysis 4-dose series) due on 10/16/2023 BP Controlled (<130/80) due on 10/23/2023 LDL Cholesterol due on 11/27/2023 Serum Creatinine due on 11/27/2023 Hemoglobin/Hematocrit due on 11/27/2023 Annual PCP Team Chronic Disease Visit due on 12/27/2023 Colorectal Cancer Screening due on 09/13/2027 DTaP,Tdap,Td Vaccine(3 - Td or Tdap) due on 12/31/2028 Bone Density Screening Completed Influenza Vaccine Completed Advance Directive Discussion Completed Depression Assessment Completed Hepatitis C Screening Completed HIV Screening Completed Shingrix Vaccine Completed Pneumococcal Vaccine: 65+ Completed HPV Vaccine Aged Out DATA REVIEWED: Outside chart from [facility] reviewed. ASSESSMENT/PLAN: 1. Nausea - ICD9: 787.02, ICD10: R11.0 Probable viral gastrititis - symptoms all resolving - has prescription with zofran - bland diet, small meals, and sips of liquid throughout the day - go back to ER for vomiting, increased pain, fever or other urgent concern - follow up in 2 weeks or earlier for any further concerns and symptoms 3. Epigastric pain - ICD9: 789.06, ICD10: R10.13 As above 3. Type 2 diabetes mellitus with hyperosmolarity 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, with long-term current use of insulin (HCC) - ICD9: 250.20, V58.67, ICD10: E11.00, Z79.4 - when not eating a meal follow sliding scale only - if tolerating food all day today without issue and blood sugars remain stable, can start back on full lantus dose tonight. - follow up in 2 weeks or earlier if needed \ Prescription instructions reviewed with patient as applicable. Potential red flag symptoms discussed with the patient. Reviewed appropriate action plan to take if red flag symptoms occur. Patient agreeable to treatment plan. Silva Plasencia APRN.CNP documented in this encounter [facility] 12-26-2022 Note [facility] 12-24-2022 Miscellaneous Notes Letter sent to patient ness per her request. Please print and process Patient calls to request a letter for [facility]. Patient reports that she receives gas vouchers to get to doctor appointments here and at main campus. The letter needs to state that patient is an established patient with the [facility] and needs to be addressed to Poly Shafer at [facility]. Patient requests it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 PAST MEDICAL HISTORY Diagnosis Date Abdominal pain 12/21/2014 Diffuse abdominal pain x 6 days Worsened with palpation on LLQ and epigastric No diarrhea no vomiting no alcohol drink no sick contact no change in stool no melena Ddx: viral GI vs any intraabdominal pathology or infection in a setting of immunosuppressed patient Plan CT abd wo Levin culture Acute renal failure superimposed on stage 4 chronic kidney disease (HCC) 01/02/2020 Anemia Anemia in stage 4 chronic kidney disease (HCC) 12/17/2016 Anemia of chronic kidney failure, stage 4 (severe) (HCC) 12/11/2016 Anxiety Arthritis Krueger's palsy CAD (coronary artery disease) Cancer (HCC) uterine and cervical Celiac disease 2007 Cellulitis of back except buttock Cirrhosis of liver without mention of alcohol CKD (chronic kidney disease) Dialysis M/W/F [facility] COPD (chronic obstructive pulmonary disease) (HCC) Diabetes mellitus without mention of complication Diabetic polyneuropathy (HCC) 02/04/2017 Disorder of thyroid DVT (deep venous thrombosis) (HCC) Esophageal reflux Hammer toes, bilateral 11/30/2016 History of transfusion Hypertension Incisional hernia 12/30/2008 Liver replaced by transplant ([facility]) 2008 - 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 Plan: - Continue Tacrolimus 1.5 mg BID - daily Tacrolimus levels - Continue Otezla 30 mg BID Lymphedema RAUL (obstructive sleep apnea) does not use CPAP Other and unspecified hyperlipidemia Other lymphedema runs in family PMH - PAST MEDICAL HISTORY OF 1999 endometrial cancer, had complete hysterectomy Psoriasis and similar disorders 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 No colitis. Poor rectal sphincter tone. Referred to [facility]. COLONOSCOPY FLX DX W/COLLJ SPEC WHEN PFRMD 11/29/2011 [facility] /Dr. Anderson COLONOSCOPY FLX DX W/COLLJ SPEC WHEN PFRMD 07/2011 J[facility] COLONOSCOPY FLX DX W/COLLJ SPEC WHEN PFRMD 09/2011 Dr. Lagunas [facility] ESOPHAGOGASTRODUODENOSCOPY TRANSORAL DIAGNOSTIC 12/2009 [facility] Janneth ESOPHAGOGASTRODUODENOSCOPY TRANSORAL DIAGNOSTIC 12/2010 [facility] Janneth FISTULA HERNIA REPAIR HX 12/2008 incisional hernia repair LVR ALTRNSPLJ ORTHOTOPIC PRTL/WHL DON ANY AGE 0507/2008 PAST SURGICAL HISTORY OF 1989 left ovary/cyst removal PAST SURGICAL HISTORY OF 1974 all teeth removed SKIN BIOPSY HX TOTAL ABDOMINAL HYSTERECT W/WO RMVL TUBE OVARY 1998 Hysterectomy, FRANSISCA -for endometrial cancer VAGINAL HYSTERECTOMY VASCULAR SURGERY PROCEDURE ALLERGIES Clindamycin, Buspar [Buspirone Hcl], Duricef [Cefadroxil], Keflex [Cephalexin], Lisinopril, Losartan, Naprosyn [Naproxen], Niaspan [Niacin], Sulfa (Sulfonamide Antibiotics), and Unasyn [Ampicillin-Sulbactam] MEDICATIONS midodrine (PROAMATINE) 10 mg tablet Take 10 mg by mouth. Taking Sat, Sat and Sat before dialysis HYDROcodone-acetaminophen (NORCO) 5-325 mg per tablet Take 1 tablet by mouth every 6 hours as needed for pain. insulin glargine (LANTUS U-100 INSULIN) 100 unit/mL injection Inject 35 Units subcutaneously twice daily. Via Syringe insulin aspart U-100 (NOVOLOG U-100 INSULIN ASPART) 100 unit/mL Inject 25 units before breakfast, 25 units before lunch, and 25 units before dinner. Plus sliding scale (2 units for every 50 mg/dL above 150 mg/dL) hydrOXYzine HCl (ATARAX) 25 mg tablet Take 0.5 tablets by mouth every 6 hours as needed for itching/rash. Lancets lancets Test 4 times daily, Insulin Dep? Yes E11.9 DM 2 blood sugar diagnostic (BLOOD GLUCOSE TEST) test strip Test 4 times daily, Insulin Dep? Yes E11.9 DM 2 insulin aspart U-100 (NOVOLOG U-100 INSULIN ASPART) 100 unit/mL Inject 20 units before breakfast, 25 units before lunch, and 25 units before dinner. Plus sliding scale (2 units for every 50 mg/dL above 150 mg/dL) hydrocortisone 1 % ointment Apply to affected area twice daily. rOPINIRole (REQUIP) 1 mg tablet Take one tab in the morning and 2 in the evening clopidogrel (PLAVIX) 75 mg tablet Take 1 tablet by mouth once daily. levothyroxine (LEVOXYL) 88 mcg tablet Take 1 tablet by mouth once daily. Take on empty stomach. For Thyroid gabapentin (NEURONTIN) 100 mg capsule Take 2 capsules by mouth daily at bedtime for 180 days. rOPINIRole (REQUIP) 1 mg tablet Take one tab in the morning and 2 in the evening traZODone (DESYREL) 100 mg tablet Take 2 tablets by mouth daily at bedtime. tacrolimus IR (PROGRAF) 0.5 mg capsule Take 1 capsule by mouth twice daily. Insulin Syringe-Needle U-100 0.5 mL 31 gauge x 5/16 Use to inject insulin 5 times daily as directed. nitroglycerin sublingual (NITROQUICK) 0.4 mg SL tablet Dissolve 1 tablet under the tongue every 5 minutes as needed for chest pain. apremilast (OTEZLA) 30 mg tablet Take 1 tablet by mouth once daily. atorvastatin (LIPITOR) 10 mg tablet Take 1 tablet by mouth once daily. carvedilol (COREG) 12.5 mg tablet Take 1 tablet by mouth twice daily. pantoprazole DR (PROTONIX) 40 mg tablet Take 1 tablet by mouth once daily. As needed for upset stomach sertraline (ZOLOFT) 50 mg tablet Take 1 tablet by mouth once daily. torsemide (DEMADEX) 20 mg tablet Take 3 tablets by mouth once daily. Blood-Glucose Meter,Continuous (DEXCOM G7 CHIP BIN OPERATOR) [facility] to check blood sugar at least four (4) times daily. Blood-Glucose Sensor (DEXCOM G7 SENSOR) brady Apply new sensor every ten (10) days. albuterol HFA (PROVENTIL HFA, VENTOLIN HFA) 90 mcg/actuation inhaler diphenoxylate-atropine (LOMOTIL) 2.5-0.025 mg per tablet As needed Ascorbic Acid 500 mg chew Take 500 mg by mouth once daily. melatonin 5 mg tablet Take 10 mg by mouth daily at bedtime. sevelamer carbonate (RENVELA) 800 mg tablet Take by mouth. Taking 2 tablet with breakfast, 2 tablet with lunch, and 2 tablets with dinner as directed. B Complex-Vitamin C-Folic Acid (RENAL VITAMIN) 0.8 mg tab Take 1 tablet by mouth once daily. cholecalciferol (VITAMIN D3) 1,000 unit tab tablet Take 1,000 Units by mouth twice daily. vitamin B complex (B COMPLEX-VITAMIN B12 ORAL) Take 5,000 mcg by mouth once daily. Ascorbic Acid 1,000 mg tablet Take 1,000 mg by mouth once daily. + Nebulizer Supplies Nebulizer, Mask, & O2 Tubing. Use as directed. triamcinolone (KENALOG) 0.025 % cream Apply to affected area twice daily for 7 days. loperamide HCl (LOPERAMIDE ORAL) Take 4 mg by mouth as needed. Blood-Glucose Transmitter (DEXCOM G6 TRANSMITTER) brady Apply new transmitter every 90 days. Clean transmitter with an alcohol swab with each sensor change. Blood-Glucose Meter,Continuous (DEXCOM G6 CHIP BIN OPERATOR) [facility] [place] to check blood sugar at least four (4) times daily. Blood-Glucose Sensor (DEXCOM G6 SENSOR) brady Apply new sensor every ten (10) days to abdomen. FAMILY HISTORY Problem Relation Age of Onset Cancer Father age 73 lung CA Stroke Father Ischemic Heart Disease Father [place] age 70s Diabetes Mother age 76 other (Dementia) Mother other (CHF) Mother other (Lymphedema) Mother other (renal failure) Mother Psoriasis Brother other (cirrhosis) Brother from aneurysm at age 38 other (psoriasis) Brother Social History Tobacco Use Smoking status: Never Passive exposure: Yes Smokeless tobacco: Never Tobacco comments: Parents both smoked in childhood home. No household ETS since. Vaping Use Vaping Use: Never used Substance Use Topics Alcohol use: No Drug use: No ASSESSMENT/PLAN: 1. Rash - ICD9: 782.1, ICD10: R21 (primary diagnosis) - HSV1,2/VZV NAAT LESION 2. Itching - ICD9: 698.9, ICD10: L29.9 - TRIAMCINOLONE ACETONIDE 0.025 % TOPICAL CREAM Culture was sent out. Patient was given cream to help with the itching. Patient's past the window of the medication treatment and on dialysis. She was educated about proper use of medication and supportive therapies. Patient will follow-up if signs and symptoms seem to be getting worse not better. Patient was okay with this care plan. Sandy Mendes APRN.NATHALY documented in this encounter [facility] 10-26-2022 Note [facility] 10-26-2022 History of Present illness Narrative [facility] Telephonic Outreach Provider Action/FYI Contacted for: Routine Telephonic Outreach Contact made with patient: Yes Patient identified by name and date of . Discussed care with patient Are you experiencing any new or worsening symptoms you need to talk about today? No Disease Specific Do you check your blood pressure at home? No Do you have new or worsening shortness of breath with activity? No Do you feel like you are dehydrated for any reason, including not being able to eat or drink normally, or having less urine/much darker urine than normal for you? No Do you check your daily weight at home? No Based on assessment analyst, the following disposition is advised: No symptoms or symptoms present, not severe. Routed to: No Action Needed NOELLE Education Provided this Outreach: No Sienna Miller RN October 26, 2022 1:27 PM documented in this encounter [facility] 10-26-2022 Note [facility] 10-23-2022 Miscellaneous Notes Pt. ret'd call and was r/s for 10/26/22. 1st attempt to reschedule. Called and lmom. Primary Care Pharmacy Rescheduling Outreach Call center, please contact patient and reschedule telephone and virtual visit for Diabetes management within ~4 week(s). (Visit length: 30 minutes) Thank you, Charlotte Gurrola RPh 10/22/2022 4:11 PM documented in this encounter [facility] 10-22-2022 Note [facility] 09-28-2022 Note [facility] 09-19-2022 Miscellaneous Notes Leighann from patients dialysis center calls in requesting to speak with a coordinator regarding her restrictions. Patient is saying that she cannot have any vinegar and they are questioning the reasoning why. She can be reached at [phone]. documented in this encounter [facility] 08-31-2022 Note [facility] 08-29-2022 Note [facility] 08-29-2022 Note [facility] 08-29-2022 History of Present illness Narrative The following approved medication requests have been transmitted electronically. Requested Prescriptions Signed Prescriptions Disp Refills hydrOXYzine HCl (ATARAX) 25 mg tablet 60 tablet 2 Sig: Take 0.5 tablets by mouth every 6 hours as needed for itching/rash. Erin Plasencia APRN.NATHALY CDM Telephonic Outreach Provider Action/FYI Pt states she has been having diarrhea on the days she has dialysis and constipation on the days she does not. She is concerned about the reason for this. She has an appointment on Saturday with PCP office and will discuss with provider at that time. Pt states she has started itching again and would like the hydroxyzine to begin to be re-filled if appropriate. Advised patient I would put in a refill request for it. Hydroxyzine 25 mg 1/2 tab q 6 hours prn itching/rash ROUTING TO SILVA PLASENCIA APRN, CNP FOR REVIEW Pt denies other new or worsening CDM symptoms. Denies further needs, questions, concerns at this time. End outreach. Contacted for: Routine Telephonic Outreach Contact made with patient: Yes Patient identified by name and date of . Discussed care with patient Are you experiencing any new or worsening symptoms you need to talk about today? No Disease Specific Do you check your blood pressure at home? No Do you have new or worsening shortness of breath with activity? No Do you have new or worsening trouble breathing while lying flat? No Do you have new or worsening swelling of legs, feet or ankles? No Do you feel like you are dehydrated for any reason, including not being able to eat or drink normally, or having less urine/much darker urine than normal for you? No Do you check your daily weight at home? Yes, Have you noticed a sudden gain in weight greater than three pounds in a day or three pounds in a week? No Based on assessment analyst, the following disposition is advised: No symptoms or symptoms present, not severe. Routed to: No Action Needed NOELLE Education Provided this Outreach: No Dasha Colvin RN August 29, 2022 4:27 PM documented in this encounter [facility] 08-29-2022 Miscellaneous Notes Addended by: ERIN PLASENCIA on: 08/29/2022 05:36 PM Modules accepted: Orders documented in this encounter [facility] 08-28-2022 Note [facility] 08-28-2022 History of Present illness Narrative [facility] Telephonic Outreach Provider Action/HARIKA Made call #1. Someone picked up phone and hung it up. End outreach Contacted for: Routine Telephonic Outreach Contact made with patient: No, left message. Someone answered and hung up. Dasha Colvin RN August 28, 2022 2:50 PM documented in this encounter [facility] 08-07-2022 Note [facility] 08-07-2022 History of Present illness Narrative Images from the original note were not included. Primary Care Pharmacy Visit CC (Reason for Consult): Diabetes Goal: A1c < 8% Last Collaborating Physician Visit: 05/30/22 Christina Guerrier is a 67 year old female presenting for follow up visit by telephone. Patient consents to pharmacy collaborative practice agreement. . At last visit with pharmacy on 07/17/22 the following changes were made: No medication changes made. At last [employer] message on 07/24/22, lowered insulin dose due to hypoglycemia. HPI: No longer having low BG reading with lowered insulin dose Would like back up testing supplies for when CGM sensor malfunctions GLYCEMIC CONTROL: SMBG's: ROS: As above. Patient denies CP, SOB, VIDES, blurred vision, dizziness or lightheadedness Patient denies nausea, vomiting, diarrhea, abdominal pain Patient denies symptoms of hypoglycemia (sweating, anxiety, palpitations, hunger, and tremor) Patient denies symptoms of hyperglycemia (polyuria, polydipsia, polyphagia) Patient denies potential medication adverse effects Past medical, family and social history reviewed and updated. MEDICATIONS: Adherence: denies missed doses ALLERGIES Allergen Reactions Clindamycin Vomiting Buspar [Buspirone H* Hives Duricef [Cefadroxil] Hives Keflex [Cephalexin] Rash rash but unsure if it is from keflex Lisinopril Swelling Losartan Swelling Naprosyn [Naproxen] Other: See Comments lowers platelets Niaspan [Niacin] Hives Sulfa (Sulfonamide * Hives Unasyn [Ampicillin-* Hives Current Outpatient Medications Medication Sig Dispense Refill insulin glargine (LANTUS U-100 INSULIN) 100 unit/mL injection Inject 40 Units subcutaneously twice daily. Via Syringe insulin aspart U-100 (NOVOLOG U-100 INSULIN ASPART) 100 unit/mL Inject 20 units before breakfast, 25 units before lunch, and 25 units before dinner. Plus sliding scale (2 units for every 50 mg/dL above 150 mg/dL) 20 mL 0 insulin aspart U-100 (NOVOLOG U-100 INSULIN ASPART) 100 unit/mL Inject 20 units before breakfast, 25 units before lunch, and 25 units before dinner. Plus sliding scale (2 units for every 50 mg/dL above 150 mg/dL) 6000 mL 3 hydrocortisone 1 % ointment Apply to affected area twice daily. 56 g 2 HYDROcodone-acetaminophen (NORCO) 5-325 mg per tablet Take 1 tablet by mouth every 6 hours as needed for pain. 28 tablet 0 rOPINIRole (REQUIP) 1 mg tablet Take one tab in the morning and 2 in the evening 90 tablet 0 clopidogrel (PLAVIX) 75 mg tablet Take 1 tablet by mouth once daily. 90 tablet 3 levothyroxine (LEVOXYL) 88 mcg tablet Take 1 tablet by mouth once daily. Take on empty stomach. For Thyroid 90 tablet 3 gabapentin (NEURONTIN) 100 mg capsule Take 2 capsules by mouth daily at bedtime for 180 days. 180 capsule 1 rOPINIRole (REQUIP) 1 mg tablet Take one tab in the morning and 2 in the evening 270 tablet 3 traZODone (DESYREL) 100 mg tablet Take 2 tablets by mouth daily at bedtime. 180 tablet 1 tacrolimus IR (PROGRAF) 0.5 mg capsule Take 1 capsule by mouth twice daily. 180 capsule 3 Insulin Syringe-Needle U-100 0.5 mL 31 gauge x 5/16 Use to inject insulin 5 times daily as directed. 450 Each 3 nitroglycerin sublingual (NITROQUICK) 0.4 mg SL tablet Dissolve 1 tablet under the tongue every 5 minutes as needed for chest pain. 25 tablet 0 apremilast (OTEZLA) 30 mg tablet Take 1 tablet by mouth once daily. 90 tablet 3 atorvastatin (LIPITOR) 10 mg tablet Take 1 tablet by mouth once daily. 90 tablet 3 carvedilol (COREG) 12.5 mg tablet Take 1 tablet by mouth twice daily. [address] (PROTONIX) 40 mg tablet Take 1 tablet by mouth once daily. As needed for upset stomach 90 tablet 1 sertraline (ZOLOFT) 50 mg tablet Take 1 tablet by mouth once daily. 90 tablet 3 torsemide (DEMADEX) 20 mg tablet Take 3 tablets by mouth once daily. 270 tablet 3 Blood-Glucose Meter,Continuous (DEXCOM G7 CHIP BIN OPERATOR) [facility] [place] to check blood sugar at least four (4) times daily. 1 Each 0 Blood-Glucose Sensor (DEXCOM G7 SENSOR) brady Apply new sensor every ten (10) days. 9 Each 3 loperamide HCl (LOPERAMIDE ORAL) Take 4 mg by mouth as needed. albuterol HFA (PROVENTIL HFA, VENTOLIN HFA) 90 mcg/actuation inhaler diphenoxylate-atropine (LOMOTIL) 2.5-0.025 mg per tablet As needed Ascorbic Acid 500 mg chew Take 500 mg by mouth once daily. blood sugar diagnostic (BLOOD GLUCOSE TEST) test strip Test blood sugar(s) 5 times daily. Dx: Type 2 DM - Controlled E11.9 Insulin: Yes 450 Strip 3 Blood-Glucose Transmitter (DEXCOM G6 TRANSMITTER) brady Apply new transmitter every 90 days. Clean transmitter with an alcohol swab with each sensor change. 1 Each 3 Blood-Glucose Meter,Continuous (DEXCOM G6 CHIP BIN OPERATOR) misc Use to check blood sugar at least four (4) times daily. 1 Each 0 Blood-Glucose Sensor (DEXCOM G6 SENSOR) brady Apply new sensor every ten (10) days to abdomen. 9 Each 3 melatonin 5 mg tablet Take 10 mg by mouth daily at bedtime. sevelamer carbonate (RENVELA) 800 mg tablet Take by mouth. Taking 2 tablet with breakfast, 2 tablet with lunch, and 2 tablets with dinner as directed. B Complex-Vitamin C-Folic Acid (RENAL VITAMIN) 0.8 mg tab Take 1 tablet by mouth once daily. Blood-Glucose Meter monitoring kit Glucose Meter of Choice - Kit - Dx: Type 2 DM - Uncontrolled E11.65 with hypoglycemia Insulin: yes 1 Each 0 cholecalciferol (VITAMIN D3) 1,000 unit tab tablet Take 1,000 Units by mouth twice daily. vitamin B complex (B COMPLEX-VITAMIN B12 ORAL) Take 5,000 mcg by mouth once daily. Ascorbic Acid 1,000 mg tablet Take 1,000 mg by mouth once daily. ACCU-CHEK MULTICLIX LANCET lancets TEST BLOOD SUGAR 4 TO 5 TIMES DAILY. 510 Each 3 + Nebulizer Supplies Nebulizer, Mask, & O2 Tubing. Use as directed. 1 Each 12 No current facility-administered medications for this visit. EXAM: Last 3 Encounter BP Readings: Date: BP: 07/12/2022 154/46 05/30/2022 124/56 05/02/2022 98/46 Wt: 117 kg (258 lb) BMI: 42.93 kg/(m^2) LABS: reviewed Lab Results Component Value Date HBA1C 6.5 05/02/2022 HBA1C 6.0 10/20/2021 HBA1C 7.3 05/10/2021 HBA1C 7.2 11/15/2020 HBA1C 6.6 05/05/2020 HBA1C 8.0 01/02/2020 Glucose 91 07/12/2022 BUN 20 07/12/2022 Creatinine 4.96 07/12/2022 Sodium 139 07/12/2022 Potassium 3.9 07/12/2022 Chloride 96 07/12/2022 CO2 Content, Venous 28 07/12/2022 Protein, Total 6.9 07/12/2022 Albumin 3.8 07/12/2022 Calcium 9.7 07/12/2022 Alkaline Phosphatase 78 07/12/2022 Bilirubin, Total 0.5 07/12/2022 AST 30 07/12/2022 ALT 24 07/12/2022 Lab Results Component Value Date CHOL 134 07/12/2022 CHOL 145 04/12/2021 LDL 57 07/12/2022 LDL 43 04/12/2021 HDL 30 07/12/2022 HDL 32 04/12/2021 TG 234 07/12/2022 TG 349 04/12/2021 Albumin/Creat Ratio (mg/g) Date Value 05/19/2020 254 (H) GFR (RENFUN) (mL/min/1.73m2) Date Value 02/18/2008 52 eGFR- (no units) Date Value 04/12/2021 24 ASSESSMENT/PLAN: 1. Type 2 diabetes mellitus with hyperosmolarity 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, with long-term current use of insulin (HCC) - ICD9: 250.20, V58.67, ICD10: E11.00, Z79.4 A1c goal <8%. A1c at goal at last check. SMBGs improving on current regimen and hypoglycemia has resolved. Will continue same regimen. Continue Novolog 20 units before breakfast and 25 units before lunch and dinner plus sliding scale Add 0 units if Blood Sugar (BS) is between 70-150 Add 2 units if BS is between 151-200 Add 4 units if BS is between 201-250 Add 6 units if BS is between 251-300 Add 8 units if BS is between 301-350 Add 10 units if BS is between 351-400 BS > 400 , call your physician Continue Lantus 40 units BID Follow up: Pharmacy follow up: 09/19/22 PCP team follow up: 09/01/19 Charlotte Gurrola, KayleighD, BCACP Primary Care Clinical Pharmacist The majority of the pharmacy visit (> 50%) was spent counseling and/or coordinating care for the patient. interaction: telephonic time was 18 minutes. documented in this encounter [facility] 07-17-2022 Note [facility] 07-13-2022 Note [facility] 07-13-[address] - 07/13/2022 9:53 AM EDT Nutrition Intervention 07/12/2022: Modify type and amount of food at meals and snacks 1. Limit sodium to 2000 mg per day or less -avoid salting foods and using salt when cooking -try to use salt free blends, other herbs and spices for flavor -avoid restaurants and fast food -try to refer to food labels on packaged, processed foods for sodium content (aim for <300 mg per serving) 2. Aim for 93-117 g protein daily -refer to handout provided -try to include a source of protein every time you eat -may need to incorporate more snacks throughout the day to meet needs -Consider trying a high calorie/protein nutritional supplement such as Nepro 3. Continue/Increase activity level as tolerated -Consider chair exercises if having difficulty with walking or standing -Try walking stairs at home as tolerated 4. Try to follow Healthy plate method at meal times -1/4 plate lean protein, 1/4 plate complex carbohydrates, 1/2 plate non starchy vegetables 5. Continue to limit sources of potassium and phosphorous per dialysis RD 6. Consider calorie intake of 2984-1917 calories for weight loss (RMR - 300-500 calories) documented in this encounter [facility] 07-12-2022 Note [facility] 07-12-2022 Note [facility] 07-12-2022 History of Present illness Narrative [facility] Transplant Evaluation CC: Consultation for Kidney transplant evaluation. Referred by: Ricki Dc [id number] [address] I will communicate with the referring provider by letter and/or shared electronic medical record. HPI: 67yo female here for ktxp evaluation. ESRD sec CNI tox/ DM. Started hemo dialysis October 19, 2020 via [facility]. Hx long standing diabetes since age 52 and insulin dependent since 2008, CAD, received PCI x 3 (2021), COPD, Depression, GERD, endometrial Cancer s/p FRANSISCA w/o chemo/radiation, RAUL, foot ulcer, psoriasis, RLS, upper GIB, thrombocytopenia, emphysema, obesity, anemia, osteoporosis, celiac disease and mild joint effusion. 3 PCI- Plavix LACEY to LAD and LCX (Apr 2021) UOP cups per day Weight loss and cardiology per [facility] BMI 42 Bowel incontinence-use brief LD-Denies Kidney stones-denies UTI-denies Abdominal surgeries: Cholecystectomy, appendectomy & ventral hernia repair (w/o mesh). Currently has hernia left side of abdomen Cardiovascular Disease: CAD s/p stents in Apr 2021 Peripheral Arterial Disease: (TIA non-embolic, CVA non-embolic, amputation, carotid artery stenosis, abnormal PVRs, claudication history, decreased pulses, etc.):No DM: Yes Diagnosed at age 52, Type 2, and Therapies: insulin injections (Insulin start date: 2008) Prior transplant: Yes CKD: Yes: Cause of CKD: CNI/DM Hemodialysis, Start date: 10/19/2020 Living Donors: No Residual UO: cups per day Hypercoagulable (history of DVT/PE, miscarriages, prior use of anticoagulation, etc.):Yes Remote DVT Malignancy (including skin cancer): Yes- -endometrial s/p FRANSISCA PAST MEDICAL HISTORY Diagnosis Date Abdominal pain 12/21/2014 Diffuse abdominal pain x 6 days Worsened with palpation on LLQ and epigastric No diarrhea no vomiting no alcohol drink no sick contact no change in stool no melena Ddx: viral GI vs any intraabdominal pathology or infection in a setting of immunosuppressed patient Plan CT abd wo Levin culture Acute renal failure superimposed on stage 4 chronic kidney disease (HCC) 01/02/2020 Anemia Anemia in stage 4 chronic kidney disease (HCC) 12/17/2016 Anemia of chronic kidney failure, stage 4 (severe) (HCC) 12/11/2016 Anxiety Arthritis Krueger's palsy CAD (coronary artery disease) Cancer (HCC) uterine and cervical Celiac disease 2007 Cellulitis of back except buttock Cirrhosis of liver without mention of alcohol CKD (chronic kidney disease) Dialysis M/W/F [facility] COPD (chronic obstructive pulmonary disease) (HCC) Diabetes mellitus without mention of complication Diabetic polyneuropathy (HCC) 02/04/2017 Disorder of thyroid DVT (deep venous thrombosis) (HCC) Esophageal reflux Hammer toes, bilateral 11/30/2016 History of transfusion Hypertension Incisional hernia 12/30/2008 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 Plan: - Continue Tacrolimus 1.5 mg BID - daily Tacrolimus levels - Continue Otezla 30 mg BID Lymphedema RAUL (obstructive sleep apnea) does not use CPAP Other and unspecified hyperlipidemia Other lymphedema runs in family PMH - PAST MEDICAL HISTORY OF 1998 endometrial cancer, had complete hysterectomy Psoriasis and similar disorders [place]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 No colitis. Poor rectal sphincter tone. Referred to Oriana Newberry. COLONOSCOPY FLX DX W/COLLJ SPEC WHEN PFRMD 11/29/2011 [facility] /Dr. Anderson COLONOSCOPY FLX DX W/COLLJ SPEC WHEN PFRMD 07/2011 Janneth COLONOSCOPY FLX DX W/COLLJ SPEC WHEN PFRMD 09/2011 Dr. Lagunas [facility] ESOPHAGOGASTRODUODENOSCOPY TRANSORAL DIAGNOSTIC 12/2009 [facility] Janneth ESOPHAGOGASTRODUODENOSCOPY TRANSORAL DIAGNOSTIC 12/2010 [facility] Janneth FISTULA HERNIA REPAIR HX 12/2008 incisional hernia repair LVR ALTRNSPLJ ORTHOTOPIC PRTL/WHL DON ANY AGE 0507/2008 PAST SURGICAL HISTORY OF 1989 left ovary/cyst removal PAST SURGICAL HISTORY OF 1974 all teeth removed SKIN BIOPSY HX TOTAL ABDOMINAL HYSTERECT W/WO RMVL TUBE OVARY 1998 Hysterectomy, FRANSISCA -for endometrial cancer VAGINAL HYSTERECTOMY VASCULAR SURGERY PROCEDURE Current Outpatient Medications Medication Sig hydrocortisone 1 % ointment Apply to affected area twice daily. HYDROcodone-acetaminophen (NORCO) 5-325 mg per tablet Take 1 tablet by mouth every 6 hours as needed for pain. traMADol (ULTRAM) 50 mg tablet Take 1 tablet by mouth four times daily as needed for pain. rOPINIRole (REQUIP) 1 mg tablet Take one tab in the morning and 2 in the evening clopidogrel (PLAVIX) 75 mg tablet Take 1 tablet by mouth once daily. levothyroxine (LEVOXYL) 88 mcg tablet Take 1 tablet by mouth once daily. Take on empty stomach. For Thyroid insulin aspart U-100 (NOVOLOG U-100 INSULIN ASPART) 100 unit/mL Inject 20 units before breakfast, 25 units before lunch, and 25 units before dinner. Plus sliding scale (2 units for every 50 mg/dL above 150 mg/dL) insulin glargine (LANTUS U-100 INSULIN) 100 unit/mL injection Inject 50 Units subcutaneously twice daily. Via Syringe cholestyramine-sucrose (QUESTRAN) 4 gram powder Take 4 g by mouth twice daily with meals. gabapentin (NEURONTIN) 100 mg capsule Take 2 capsules by mouth daily at bedtime for 180 days. rOPINIRole (REQUIP) 1 mg tablet Take one tab in the morning and 2 in the evening traZODone (DESYREL) 100 mg tablet Take 2 tablets by mouth daily at bedtime. tacrolimus IR (PROGRAF) 0.5 mg capsule Take 1 capsule by mouth twice daily. Insulin Syringe-Needle U-100 0.5 mL 31 gauge x 5/16 Use to inject insulin 5 times daily as directed. nitroglycerin sublingual (NITROQUICK) 0.4 mg SL tablet Dissolve 1 tablet under the tongue every 5 minutes as needed for chest pain. apremilast (OTEZLA) 30 mg tablet Take 1 tablet by mouth once daily. atorvastatin (LIPITOR) 10 mg tablet Take 1 tablet by mouth once daily. carvedilol (COREG) 12.5 mg tablet Take 1 tablet by mouth twice daily. pantoprazole DR (PROTONIX) 40 mg tablet Take 1 tablet by mouth once daily. As needed for upset stomach sertraline (ZOLOFT) 50 mg tablet Take 1 tablet by mouth once daily. torsemide (DEMADEX) 20 mg tablet Take 3 tablets by mouth once daily. Blood-Glucose Meter,Continuous (DEXCOM G7 CHIP BIN OPERATOR) [facility] [place] to check blood sugar at least four (4) times daily. Blood-Glucose Sensor (DEXCOM G7 SENSOR) brady Apply new sensor every ten (10) days. loperamide HCl (LOPERAMIDE ORAL) Take 4 mg by mouth as needed. albuterol HFA (PROVENTIL HFA, VENTOLIN HFA) 90 mcg/actuation inhaler dicyclomine (BENTYL) 20 mg tablet As needed diphenoxylate-atropine (LOMOTIL) 2.5-0.025 mg per tablet As needed Ascorbic Acid 500 mg chew Take 500 mg by mouth once daily. blood sugar diagnostic (BLOOD GLUCOSE TEST) test strip Test blood sugar(s) 5 times daily. Dx: Type 2 DM - Controlled E11.9 Insulin: Yes Blood-Glucose Transmitter (DEXCOM G6 TRANSMITTER) brady Apply new transmitter every 90 days. Clean transmitter with an alcohol swab with each sensor change. Blood-Glucose Meter,Continuous (DEXCOM G6 CHIP BIN OPERATOR) misc Use to check blood sugar at least four (4) times daily. Blood-Glucose Sensor (DEXCOM G6 SENSOR) brady Apply new sensor every ten (10) days to abdomen. melatonin 5 mg tablet Take 10 mg by mouth daily at bedtime. sevelamer carbonate (RENVELA) 800 mg tablet Take by mouth. Taking 2 tablet with breakfast, 2 tablet with lunch, and 2 tablets with dinner as directed. B Complex-Vitamin C-Folic Acid (RENAL VITAMIN) 0.8 mg tab Take 1 tablet by mouth once daily. Blood-Glucose Meter monitoring kit Glucose Meter of Choice - Kit - Dx: Type 2 DM - Uncontrolled E11.65 with hypoglycemia Insulin: yes cholecalciferol (VITAMIN D3) 1,000 unit tab tablet Take 1,000 Units by mouth twice daily. vitamin B complex (B COMPLEX-VITAMIN B12 ORAL) Take 5,000 mcg by mouth once daily. Ascorbic Acid 1,000 mg tablet Take 1,000 mg by mouth once daily. ACCU-CHEK MULTICLIX LANCET lancets TEST BLOOD SUGAR 4 TO 5 TIMES DAILY. + Nebulizer Supplies Nebulizer, Mask, & O2 Tubing. Use as directed. No current facility-administered medications for this visit. FAMILY HISTORY Problem Relation Age of Onset Cancer Father age 73 lung CA Stroke Father Ischemic Heart Disease Father [place] age 70s Diabetes Mother age 76 other (Dementia) Mother other (CHF) Mother other (Lymphedema) Mother other (renal failure) Mother Psoriasis Brother other (cirrhosis) Brother from aneurysm at age 38 other (psoriasis) Brother Family Status Relation Name Status Fa Mo Bro Bro (Not Specified) Social History Tobacco Use Smoking status: Never Passive exposure: Yes Smokeless tobacco: Never Tobacco comments: Parents both smoked in childhood home. No household ETS since. Vaping Use Vaping Use: Never used Substance Use Topics Alcohol use: No Drug use: No Pre-transplant testing: Cardiac: ECHO:04/04/2021 CONCLUSIONS: - Technically difficult exam due to body habitus. - Exam indication: Abnormal cardiac stress test - The left ventricle is normal in size. There is mild concentric left ventricular hypertrophy. Left ventricular systolic function is mildly decreased. EF = 53 5% (2D biplane) Definity contrast used for endocardial border detection. Normal left ventricular diastolic function. - The right ventricle is normal in size. Right ventricular systolic function is normal. - The left atrial cavity is mildly dilated. - There are no significant valvular abnormalities. - The patient has not had a prior CC echocardiographic exam for comparison [facility]:04/04/2021 Impression: Severe disease of the proximal LAD estimated 70% luminal narrowing with a focal 90% stenosis after the bifurcation of a large diagonal branch, severe disease in the proximal left circumflex estimated 90% stenosis before the bifurcation of a large obtuse marginal branch. Large dominant right coronary artery with mild diffuse disease. Normal left ventricular function ejection fraction 60% Recommended Treatment: CABG and Medical Therapy CT Chest:04/04/2021 IMPRESSION: 1. No suspicious pulmonary nodules. 2. Small groundglass nodules diffusely as noted on 2019 suggesting chronic inflammation as can be seen with atypical infection, vasculitis or even hypersensitivity pneumonitis although atypical distribution. No consolidation. 3. No lymphadenopathy in the chest. Other chronic findings, as above. PAP Test: [facility] Mammogram: 05/08/2022 IMPRESSION: NEGATIVE There is no mammographic evidence of malignancy. A 1 year screening mammogram is recommended. The exam was reviewed by a staff physician Colonoscopy: 10/24/2021 Impression: Anal fissure, internal hemorrhoids that prolapse with straining, but spontaneiously regress to the resting position (grade II) and hypertrophied anal papillae found on perianal exam -congested mucosa in the rectum. Biopsied. Three 1 to 2 mm polyps in the sigmoid colon in the transverse colon and in the ascending colon, Sensitizations: Prior transplant: Yes Blood transfusions: Yes : Yes Rabbit: Yes: PET Immunizations: HBV series: Received, date 01/09/2021 , 12/12/2020 , 11/14/2020 Pneumovax: Received, date 11/07/2020 Influenza vaccine: Received, date 10/20/2021 Covid vaccine: Received, date 11/25/2021, 05/02/2021 , 06/02/2020 Reid Honeycutt, [employer]: I have seen the patient and confirmed the above findings and personally filed the HPI. REVIEW OF SYSTEMS ROS: Constitutional: Low bp with HD,, UF system HEENT: no oral lesions, no odynophagia, no visual difficulties Cardiac: negative for chest pain, pressure, angina, no edema Respiratory: RAUL Gastrointestinal: diarrhea with dilaysis Genitourinary: negative for dysuria, frequency Immunologic/Heme/Lymphatic: negative for anemia, easy bruising, lymph node enlargement Neurologic: No tremor, seizures, confusion. Skin: negative for rash, or other lesion Musculoskeletal: negative for arthritis, gout, myalgias Psychiatric: negative for behavioral change, mood disorders, depression Functional capacity: 3.0 e.g. light household effort KARNOFSKY INDEX SCALE (Adult patients aged 18 and older) - Used to rate a patient's functional status before and after a medical procedure: 60 - Requires occasional assistance; cares for most needs. PHYSICAL EXAMINATION: There were no vitals taken for this visit. HEENT: anicteric, conj noninflamed NECK: supple, no JVP Lungs: CTA Bilaterally, no wheezes CV: Normal S1, S2. no pathologic murmurs, rubs, gallops ABD: soft, NT, ND Ext: no edema Labs/Studies: Impression: 67 year old with MORA cirrhosis, s/p OLTXP 05/05/2008 (Liver) Hx of recent GIB, CAD s/p stent x 3 Morbid obesity RAUL Hx of malignancy- uterine, s/p hysterectomy Needs to lose about 20 lbs to be BMI < 40 She will continue to work on it Need cardiac clearance Need dermatology clearance Cancer Screening: Type of Cancer: Screening Criteria: Cervical Females age 21-29: PAP Q3yrs; HPV if PAP abnormal Females age 30-65: PAP & HPV Q5yrs; OR PAP only Q3yrs Breast Females age 20-39: Clinical Breast Exam Q3yrs Females age 40+: Mammogram & Clinical Breast Exam Q1yr Prostate Males age 40+: PSA will be checked at evaluation Colon All patients age 50+: colonoscopy Q10yrs or as recommended based on results Lung Patients meeting all of the following criteria will be scheduled for a Chest CT without Contrast at evaluation if they have not had a Chest CT within the past year: 1. Age 55-74 2. Have at least a 30 pack-year smoking history 3. Are still smoking OR have quit smoking within the last 15 yrs Patients that do not meet the criteria above or who had a Chest CT within the past year will have a CXR PA & Lat at evaluation. Skin All patients: Skin will be examined at evaluation Based upon the above screening criteria, the patient will require: No additional testing is needed at this time. Patient is up to date with cancer screening. Pharmacy Consult: Not needed at this time We had the opportunity to discuss the following, specific for this patient: 1. Risks and benefits of transplantation including overall average increase in life expectancy and higher quality of life with transplantation for most but not all recipients; however, there is during the immediate transplant period a higher risk of that is variable depending on recipient and donor factors. The time period to obtain equal risk to staying on the wait list, and gain of benefit from transplantation is also variable. 2. Types of donor organs discussed with patient, including Living donor (if appropriate), , high KDPI, donor cardiac (DCD) Hepatitis C positive and increased risk donor types. The relative benefit of living donation over donor transplantation explained. We discussed the possibility of living donors for Ms. Guerrier. 3. We had a lengthy discussion regarding immunosuppression following transplantation. I explained our usual protocols, drugs involved, administration and monitoring. This included the risks of possibly life threatening infection, , and malignancy following transplantation, possible need for dialysis and re-admission to the hospital. I explained the potential outcomes, including uncommon but catastrophic outcome related or not to kidney transplant itself. Opportunity to ask questions given. Patient expresses understanding of the information discussed. Communication with referring provider done by letter. Kel Victoria MD documented in this encounter [facility] 07-12-2022 Note [facility] 07-12-2022 History of Present illness Narrative Nutrition Therapy Initial Assessment Nutrition Diagnosis: Overweight/obesity, related to, food/nutrition - related knowledge deficit and physical inactivity, as evidenced by BMI above normative standard for age and gender. RECOMMENDED MALNUTRITION DIAGNOSIS: NO MALNUTRITION IDENTIFIED NUTRITION CARE PLAN Nutrition Intervention 07/12/2022: Modify type and amount of food at meals and snacks 1. Limit sodium to 2000 mg per day or less -avoid salting foods and using salt when cooking -try to use salt free blends, other herbs and spices for flavor -avoid restaurants and fast food -try to refer to food labels on packaged, processed foods for sodium content (aim for <300 mg per serving) 2. Aim for 93-117 g protein daily -refer to handout provided -try to include a source of protein every time you eat -may need to incorporate more snacks throughout the day to meet needs -Consider trying a high calorie/protein nutritional supplement such as Nepro 3. Continue/Increase activity level as tolerated -Consider chair exercises if having difficulty with walking or standing -Try walking stairs at home as tolerated 4. Try to follow Healthy plate method at meal times -1/4 plate lean protein, 1/4 plate complex carbohydrates, 1/2 plate non starchy vegetables 5. Continue to limit sources of potassium and phosphorous per dialysis RD 6. Consider calorie intake of 5998-5894 calories for weight loss (RMR - 300-500 calories) Nutrition Pre-Transplant Assessment Care plan has been outlined and Nutrition Concerns: BMI: 42.27; Discussed protein needs and limiting high sodium foods. Patient is agreeable to protein, but stated she will not give up her pickled eggs. Discussed chair exercises and walking her steps as tolerated for some physical activity. Nutrition Monitoring & Evaluation: po, weight status, and adherence to above recommendations Need for Follow up: PRN Patient presents for initial nutrition consult for kidney transplant evaluation. PMHx significant for ESRD, HTN, CAD, liver transplant (2008), Type 2 diabetes, and obesity. Patient brought labs from dialysis and labs were WNL. Weight fluctuates between dialysis sessions. Dry weight is 115kg. Patient reports getting constipated due to not drinking as much. Patient reports not having much of an appetite. States it's been going on for quite a while. Diet recall reveals patient is consuming 2 meals and 2 snacks daily. Diet appears low in protein, fruits, and vegetables. Patient does incorporate protein bar into diet 3 days per week and is agreeable to eating one daily. States there is a brand she likes at dialysis. It is sold on [employer] and she is gong to look into buying them. Patient is also drinking 1-2 Boosts per day. Patient does admit so high sodium foods she enjoys. Said she would not be able to give up her pickled eggs. Encouraged her to eat in moderation. Patient is aware she needs to lose weight for transplant. Fluids adequate, but encouraged patient to increase water intake. Patient reports no physical activity. Recommended chair exercises to increase movement and aid in weight loss for transplant. Patient's symptoms are: Weight Concerns: overweight Diet History: Breakfast - skips Snack - occasional: pretzels or suyapa crackers. Lunch - PB and jelly sandwich Snack - Pretzels; protein bar 3x/week Dinner - stuffed peppers OR pork roast with potatoes and carrots OR burgers. Snack - frozen fruit Beverages - [place] crush 0; water with pills; 1-2 boosts daily; Take Out: 2x/week: fish sandwich from [employer]. Alcohol- not assessed. 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 Resting Metabolic Rate: 1728 Malnutrition Screening Significant unintentional weight loss? No Eating less than 75% of usual intake for more than 2 weeks? No Potential Signs of Inflammation: chronic condition Education Materials Provided: Healthy Lunch/Dinner Plate and Healthy Snacks, High Protein Foods, Your Sodium-Controlled Diet, and Renal Diet Basics READINESS TO LEARN Cognitive ability: Alert and oriented Motivation to learn: Interested Family support: High - Very involved in pt care Instruction provided to: Patient and family member Patient learns best by: Multiple Methods Factors affecting learning: None Physical limitations affecting learning: None Referred/Supervised by: Ruthie/Quinn ZAMORA Billing Type: Initial Assess/15 min 3 units SIGNATURE: Annette Nunes RD PATIENT NAME: Christina Guerrier DATE: July 12, 2022 TIME: 11:23 AM PAGER: documented in this encounter [facility] 07-12-2022 Note [facility] 07-10-2022 Miscellaneous Notes Patient calls and notified that provider had sent hydrocortisone cream to [facility] pharmacy for itching. Patient voiced understanding. Yesica Gaspar RN I have sent her hydrocortisone ointment as needed Regards, Jame Hunt MD TC to patient who verbalized understanding of below. Patient is asking if there is anything Dr. Hunt can give her for her back itching due to the Tramadol. Please advise. Thank you. THANG Gruber Spoke with patient and her last dose was yesterday. Did recommend that she not take any more doses which she stated she has only been taking one dose at night to help sleep due to left knee pain. Denies any shortness of breath and no swelling in throat at this time. Patient is requesting a script for [place] in place of the ultram. Christina Padmini BondsChey is calling Jame Hunt MD today with concern since being prescribed Tramadol she is having itching, stated on her back. Please call Patient. Patient has been identified by name and birthdate. Duration of symptoms: N/A Person calling: self Call patient at: on cell [phone] (home) [phone] (cell) Was an appointment scheduled: No Closing statement: Symptom Call: Thank you for calling [facility], your call is very important. A nurse will call in approximately 2-4 hours during business hours. If this is an emergency, please contact 911. Aleyda Cary documented in this encounter [facility] 07-05-2022 Note [facility] 07-05-2022 History of Present illness Narrative PRE-TRANSPLANT PATIENT EDUCATION NOTE Type of Transplant: Kidney Informed Consent for Evaluation signed: No Multiple Listing Form signed: No READINESS TO LEARN: Cognitive Ability: Alert and oriented Motivation to Learn: Interested Family Support: Unable to assess - Family not present Instruction Provided to: Patient Patient Learns Best by: Multiple Methods Factors Affecting Learning: None Physical Limitations Affecting Learning: None LEARNING RESPONSE: Diagnosis: ESRD Education Topics/Teaching Points: -Discussed living donor evaluation and approval process. -Discussed the evaluation and listing process. -Discussed the different types of donors (KDPI scoring, DCD, High Risk). -Explained EPTS scoring and how it is calculated. -Explained the surgical procedure and potential complications, surgeons, hospital stay at the time of transplant. -Explained lifetime immunosuppression therapy and frequency of blood draws/labs post-op and post-op course of treatment. -Reviewed National and [facility] outcomes from the most recent SRTR center-specific report; a copy of the program summary was given to the patient. -Explained that if the transplant is not performed at a Medicare-approved transplant center it could affect the ability to have immunosuppressive medications paid under Medicare Part B. Supplemental Material: -Pre-Transplant Patient Education Folder -UNOS: Questions & Answers for Transplant Candidates about Multiple Listing and Waiting Time Transfer -UNOS: Questions & Answers for Transplant Candidates about Kidney Allocation Policy -Directions to access [facility]'s data through the SRTR website. -Informed Consent for Transplant Program Participation patient education packet -National Kidney Registry pamphlet -Covid-19 Vaccination for Transplant Candidates Method of Instruction: Group class instruction Verbal instruction Computer Patient/Family Response: Patient asked appropriate questions, which were answered satisfactorily. Follow-Up Plan: Contact information given. Referral/Recommendation: None Renetta Mendez RN Pre-Driller Portable documented in this encounter [facility] 06-26-2022 Note [facility] 06-26-2022 History of Present illness Narrative Images from the original note were not included. Primary Care Pharmacy Visit CC (Reason for Consult): Diabetes Goal: A1c < 8% Last Collaborating Physician Visit: 05/30/22 Christina Guerrier is a 67 year old female presenting for follow up visit by telephone. Patient consents to pharmacy collaborative practice agreement. . At last visit with pharmacy on 05/29/22 the following changes were made: no medication changes made HPI: States BG readings have been more elevated Is taking insulin most of the time but admits to missed doses Was traveling to [place] over the weekend and had some missed dose of insulin Has not started to use the sliding scale insulin with Novolog, taking 25 units with meals Continues to have intermittent connection with phone and sensor, Dexcom G7 was ordered and she is awaiting to hear from DME about approval Will be undergoing kidney transplant evaluation GLYCEMIC CONTROL: - Share code: [id number] CGM Report ROS: As above. Patient denies CP, SOB, VIDES, blurred vision, dizziness or lightheadedness Patient denies nausea, vomiting, diarrhea, abdominal pain Patient denies symptoms of hypoglycemia (sweating, anxiety, palpitations, hunger, and tremor) Patient denies symptoms of hyperglycemia (polyuria, polydipsia, polyphagia) Patient denies potential medication adverse effects Past medical, family and social history reviewed and updated. MEDICATIONS: Adherence: reports missed doses ALLERGIES Allergen Reactions Clindamycin Vomiting Buspar [Buspirone H* Hives Duricef [Cefadroxil] Hives Keflex [Cephalexin] Rash rash but unsure if it is from keflex Lisinopril Swelling Losartan Swelling Naprosyn [Naproxen] Other: See Comments lowers platelets Niaspan [Niacin] Hives Sulfa (Sulfonamide * Hives Unasyn [Ampicillin-* Hives Current Outpatient Medications Medication Sig Dispense Refill rOPINIRole (REQUIP) 1 mg tablet Take one tab in the morning and 2 in the evening 90 tablet 0 HYDROcodone-Acetaminophen (NORCO) 7.5-325 mg per tablet Take 1 tablet by mouth twice daily at 6AM and 9PM for 7 days. as needed for pain 14 tablet 0 clopidogrel (PLAVIX) 75 mg tablet Take 1 tablet by mouth once daily. 90 tablet 3 levothyroxine (LEVOXYL) 88 mcg tablet Take 1 tablet by mouth once daily. Take on empty stomach. For Thyroid 90 tablet 3 insulin aspart U-100 (NOVOLOG U-100 INSULIN ASPART) 100 unit/mL Inject 20 units before breakfast, 25 units before lunch, and 25 units before dinner. Plus sliding scale (2 units for every 50 mg/dL above 150 mg/dL) 6000 mL 3 insulin glargine (LANTUS U-100 INSULIN) 100 unit/mL injection Inject 50 Units subcutaneously twice daily. Via Syringe 90 mL 3 cholestyramine-sucrose (QUESTRAN) 4 gram powder Take 4 g by mouth twice daily with meals. 348.6 g 3 gabapentin (NEURONTIN) 100 mg capsule Take 2 capsules by mouth daily at bedtime for 180 days. 180 capsule 1 rOPINIRole (REQUIP) 1 mg tablet Take one tab in the morning and 2 in the evening 270 tablet 3 traZODone (DESYREL) 100 mg tablet Take 2 tablets by mouth daily at bedtime. 180 tablet 1 tacrolimus IR (PROGRAF) 0.5 mg capsule Take 1 capsule by mouth twice daily. 180 capsule 3 Insulin Syringe-Needle U-100 0.5 mL 31 gauge x 5/16 Use to inject insulin 5 times daily as directed. 450 Each 3 nitroglycerin sublingual (NITROQUICK) 0.4 mg SL tablet Dissolve 1 tablet under the tongue every 5 minutes as needed for chest pain. 25 tablet 0 apremilast (OTEZLA) 30 mg tablet Take 1 tablet by mouth once daily. 90 tablet 3 atorvastatin (LIPITOR) 10 mg tablet Take 1 tablet by mouth once daily. 90 tablet 3 carvedilol (COREG) 12.5 mg tablet Take 1 tablet by mouth twice daily. [address] (PROTONIX) 40 mg tablet Take 1 tablet by mouth once daily. As needed for upset stomach 90 tablet 1 sertraline (ZOLOFT) 50 mg tablet Take 1 tablet by mouth once daily. 90 tablet 3 torsemide (DEMADEX) 20 mg tablet Take 3 tablets by mouth once daily. 270 tablet 3 Blood-Glucose Meter,Continuous (DEXCOM G7 CHIP BIN OPERATOR) [facility] Use to check blood sugar at least four (4) times daily. 1 Each 0 Blood-Glucose Sensor (DEXCOM G7 SENSOR) brady Apply new sensor every ten (10) days. 9 Each 3 loperamide HCl (LOPERAMIDE ORAL) Take 4 mg by mouth as needed. albuterol HFA (PROVENTIL HFA, VENTOLIN HFA) 90 mcg/actuation inhaler dicyclomine (BENTYL) 20 mg tablet As needed diphenoxylate-atropine (LOMOTIL) 2.5-0.025 mg per tablet As needed Ascorbic Acid 500 mg chew Take 500 mg by mouth once daily. blood sugar diagnostic (BLOOD GLUCOSE TEST) test strip Test blood sugar(s) 5 times daily. Dx: Type 2 DM - Controlled E11.9 Insulin: Yes 450 Strip 3 Blood-Glucose Transmitter (DEXCOM G6 TRANSMITTER) brady Apply new transmitter every 90 days. Clean transmitter with an alcohol swab with each sensor change. 1 Each 3 Blood-Glucose Meter,Continuous (DEXCOM G6 CHIP BIN OPERATOR) misc Use to check blood sugar at least four (4) times daily. 1 Each 0 Blood-Glucose Sensor (DEXCOM G6 SENSOR) brady Apply new sensor every ten (10) days to abdomen. 9 Each 3 melatonin 5 mg tablet Take 10 mg by mouth daily at bedtime. sevelamer carbonate (RENVELA) 800 mg tablet Take by mouth. Taking 2 tablet with breakfast, 2 tablet with lunch, and 2 tablets with dinner as directed. B Complex-Vitamin C-Folic Acid (RENAL VITAMIN) 0.8 mg tab Take 1 tablet by mouth once daily. Blood-Glucose Meter monitoring kit Glucose Meter of Choice - Kit - Dx: Type 2 DM - Uncontrolled E11.65 with hypoglycemia Insulin: yes 1 Each 0 cholecalciferol (VITAMIN D3) 1,000 unit tab tablet Take 1,000 Units by mouth twice daily. vitamin B complex (B COMPLEX-VITAMIN B12 ORAL) Take 5,000 mcg by mouth once daily. Ascorbic Acid 1,000 mg tablet Take 1,000 mg by mouth once daily. ACCU-CHEK MULTICLIX LANCET lancets TEST BLOOD SUGAR 4 TO 5 TIMES DAILY. 510 Each 3 + Nebulizer Supplies Nebulizer, Mask, & O2 Tubing. Use as directed. 1 Each 12 Current Facility-Administered Medications Medication Dose Route Frequency Provider Last Rate Last Admin perflutren lipid microspheres 1.3 mL in NaCl (PF) 0.9% 10 mL injection (DEFINITY) INTRAVENOUS DIRECTED PRN Jag Elizabeth MD sodium chloride 0.9 % (flush) 10 mL (BD POSIFLUSH) 10 mL INTRAVENOUS DIRECTED PRN Jag Elizabeth MD EXAM: Last 3 Encounter BP Readings: Date: BP: 05/30/2022 124/56 05/02/2022 98/46 02/05/2022 110/50 Wt: 112.9 kg (249 lb) BMI: 41.44 kg/(m^2) LABS: reviewed Lab Results Component Value Date HBA1C 6.5 05/02/2022 HBA1C 6.0 10/20/2021 HBA1C 7.3 05/10/2021 HBA1C 7.2 11/15/2020 HBA1C 6.6 05/05/2020 HBA1C 8.0 01/02/2020 Glucose 180 05/08/2022 BUN 29 05/08/2022 Creatinine 5.83 05/08/2022 Sodium 136 05/08/2022 Potassium 6.6 05/08/2022 Chloride 98 05/08/2022 CO2 Content, Venous 29 05/08/2022 Protein, Total 6.7 05/08/2022 Albumin 3.8 05/08/2022 Calcium 9.5 05/08/2022 Alkaline Phosphatase 68 05/08/2022 Bilirubin, Total 0.5 05/08/2022 AST 21 05/08/2022 ALT 20 05/08/2022 Lab Results Component Value Date CHOL 143 05/08/2022 CHOL 145 04/12/2021 LDL 74 05/08/2022 LDL 43 04/12/2021 HDL 35 05/08/2022 HDL 32 04/12/2021 TG 170 05/08/2022 TG 349 04/12/2021 Albumin/Creat Ratio (mg/g) Date Value 05/19/2020 254 (H) GFR (RENFUN) (mL/min/1.73m2) Date Value 02/18/2008 52 eGFR- (no units) Date Value 04/12/2021 24 ASSESSMENT/PLAN: 1. Type 2 diabetes mellitus with hyperosmolarity 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, with long-term current use of insulin ([facility]) - ICD9: 250.20, V58.67, ICD10: E11.00, Z79.4 A1c goal <8%. A1c not at goal at last check. SMBGs elevated due to missed insulin doses and not using sliding scale. Today, reviewed how to use sliding scale with Novolog before meals and encouraged adherence to regimen. Renal function appropriate for therapy. Continue Novolog 25 units before first bite of meal three times daily plus sliding scale Add 0 units if Blood Sugar (BS) is between 70-150 Add 2 units if BS is between 151-200 Add 4 units if BS is between 201-250 Add 6 units if BS is between 251-300 Add 8 units if BS is between 301-350 Add 10 units if BS is between 351-400 BS > 400 , call your physician Continue Lantus 50 units BID Follow up: Pharmacy follow up on 07/17/22 PCP follow up on 08/31/22 Charlotte Gurrola PharmD, BCACP Primary Care Clinical Pharmacist The majority of the pharmacy visit (> 50%) was spent counseling and/or coordinating care for the patient. interaction: telephonic time was 20 minutes. documented in this encounter [facility] 06-21-2022 Miscellaneous Notes Patient notified. Verbalized understanding. Please let patient know this has been sent. Thank you Silva Plasencia APRN.NATHALY PDMP website checked and validated. All prescriptions have been APPROPRIATELY filled. No suspicious activity was identified. 06/21/2022 by Silva Plasencia APRN.NATHALY Patient reports the mail order for ropinirole will not arrive in time. Asking pcp to send short supply to pharmacy. Pended with norco (as requested below). Reports she is leaving town for the weekend and would like to hand picker chico. Patient has been identified by name and date of : Yes, Provider Ganta Date 06-21-22 Time 12:14 pm Patient phones for refill(s): Requested Prescriptions Pending Prescriptions Disp Refills rOPINIRole (REQUIP) 1 mg tablet 90 tablet 0 Sig: Take one tab in the morning and 2 in the evening HYDROcodone-Acetaminophen (NORCO) 7.5-325 mg per tablet 14 tablet 0 Sig: Take 1 tablet by mouth twice daily at 6AM and 9PM for 7 days. as needed for pain Date of last office visit with pcp: 05-30-22. Next appt: 08-31-22 Last 2 Encounter Wt Readings: Date: Wt: 05/30/2022 112.9 kg (249 lb) 05/02/2022 113.4 kg (250 lb) Previous labs/tests for medication: Blood Pressure: BUN (mg/dL) Date Value 05/08/2022 29 04/12/2021 13 Sodium (mmol/L) Date Value 05/08/2022 136 04/12/2021 137 Last 1 Encounter BP Readings: Date: BP: 05/30/2022 124/56 Liver Function: ALT (U/L) Date Value 05/08/2022 20 04/12/2021 26 AST (U/L) Date Value 05/08/2022 21 04/12/2021 22 Please advise. Thank you. Estefani Patel RN Patient last seen on 05/30/2022 Next appt scheduled 08/31/2022 Last Rx given 01/29/2022 Pt called indicating she is leaving town tomorrow for the weekend. She is wondering about another prescription for NORCO. She is having knee pain again, after a fall, and that is only thing that helps her with the pain so she can sleep. [facility]. documented in this encounter [facility] 06-14-2022 Note [facility] 06-14-2022 History of Present illness Narrative CDM Telephonic Outreach Provider Essie/HARIKA Saw pcp on 05/30 Lost balance and fell when her knee gave out at her son's house recently Knee is sore but she is resting and elevating No troubles with dizziness or low BP at dialysis since her dry weight was increased Contacted for: Routine Telephonic Outreach Contact made with patient: Yes Patient identified by name and date of . Discussed care with patient Are you experiencing any new or worsening symptoms you need to talk about today? No Disease Specific Do you check your blood pressure at home? No Do you have new or worsening shortness of breath with activity? No Do you feel like you are dehydrated for any reason, including not being able to eat or drink normally, or having less urine/much darker urine than normal for you? No Do you check your daily weight at home? No Based on assessment analyst, the following disposition is advised: Symptoms present, not severe. Routed to: No Action Needed NOELLE Education Provided this Outreach: No Roxie Palmer RN June 14, 2022 2:38 PM documented in this encounter [facility] 06-12-2022 Miscellaneous Notes Patient requesting all her meds be sent to [facility] b/c they will send them to her home. Pended all accept the torsemide 20 mg 2 tabs daily- patient reports Dr. Dc, [employer] teacher has been having her take 3 tabs daily to equal 60 mg daily for the past week. Asking pcp to write new rx and send to [facility] pharmacy. Patient has been identified by name and date of : Yes, Provider Ganta Date 06-12-22 Time 10:09 am Patient phones for refill(s): Requested Prescriptions Pending Prescriptions Disp Refills clopidogrel (PLAVIX) 75 mg tablet 90 tablet 3 Sig: Take 1 tablet by mouth once daily. levothyroxine (LEVOXYL) 88 mcg tablet 90 tablet 3 Sig: Take 1 tablet by mouth once daily. Take on empty stomach. For Thyroid insulin aspart U-100 (NOVOLOG U-100 INSULIN ASPART) 100 unit/mL 6000 mL 3 Sig: Inject 20 units before breakfast, 25 units before lunch, and 25 units before dinner. Plus sliding scale (2 units for every 50 mg/dL above 150 mg/dL) insulin glargine (LANTUS U-100 INSULIN) 100 unit/mL injection 90 mL 3 Sig: Inject 50 Units subcutaneously twice daily. Via Syringe cholestyramine-sucrose (QUESTRAN) 4 gram powder 348.6 g 3 Sig: Take 4 g by mouth twice daily with meals. gabapentin (NEURONTIN) 100 mg capsule 180 capsule 1 Sig: Take 2 capsules by mouth daily at bedtime for 180 days. colestipol (COLESTID) 1 gram tablet 180 tablet 3 Sig: Take 1 tablet by mouth twice daily. rOPINIRole (REQUIP) 1 mg tablet 270 tablet 3 Sig: Take one tab in the morning and 2 in the evening traZODone (DESYREL) 100 mg tablet 180 tablet 1 Sig: Take 2 tablets by mouth daily at bedtime. tacrolimus IR (PROGRAF) 0.5 mg capsule 180 capsule 3 Sig: Take 1 capsule by mouth twice daily. Insulin Syringe-Needle U-100 0.5 mL 31 gauge x 5/16 450 Each 3 Sig: Use to inject insulin 5 times daily as directed. nitroglycerin sublingual (NITROQUICK) 0.4 mg SL tablet Sig: Dissolve 1 tablet under the tongue every 5 minutes as needed for chest pain. apremilast (OTEZLA) 30 mg tablet 90 tablet 3 Sig: Take 1 tablet by mouth once daily. atorvastatin (LIPITOR) 10 mg tablet 90 tablet 3 Sig: Take 1 tablet by mouth once daily. carvedilol (COREG) 12.5 mg tablet 180 tablet 3 Sig: Take 1 tablet by mouth twice daily. pantoprazole DR (PROTONIX) 40 mg tablet 90 tablet 1 Sig: Take 1 tablet by mouth once daily. As needed for upset stomach sertraline (ZOLOFT) 50 mg tablet 90 tablet 3 Sig: Take 1 tablet by mouth once daily. Date of last office visit with pcp: 05-30-22. Next appt: 08-31-22 Last 2 Encounter Wt Readings: Date: Wt: 05/30/2022 112.9 kg (249 lb) 05/02/2022 113.4 kg (250 lb) Previous labs/tests for medication: Thyroid: TSH Date Value 05/02/2022 2.250 mIU/L 03/28/2021 1.450 uU/mL Diabetes: Hemoglobin A1C (%) Date Value 10/20/2021 6.0 05/10/2021 7.3 11/15/2020 7.2 05/05/2020 6.6 Hemoglobin A1C (POCT) (%) Date Value 05/02/2022 6.5 Cholesterol: HDL Cholesterol (mg/dL) Date Value 05/08/2022 35 04/12/2021 32 LDL Cholesterol (mg/dL) Date Value 05/08/2022 74 04/12/2021 43 ALT (U/L) Date Value 05/08/2022 20 04/12/2021 26 Non HDL Cholesterol (mg/dL) Date Value 05/08/2022 108 04/12/2021 113 Blood Pressure: BUN (mg/dL) Date Value 05/08/2022 29 04/12/2021 13 Sodium (mmol/L) Date Value 05/08/2022 136 04/12/2021 137 Last 1 Encounter BP Readings: Date: BP: 05/30/2022 124/56 Blood Counts: WBC (k/uL) Date Value 05/08/2022 3.65 04/12/2021 4.05 RBC (m/uL) Date Value 05/08/2022 3.18 04/12/2021 3.19 Hematocrit (%) Date Value 05/08/2022 33.4 04/12/2021 31.8 Hemoglobin (g/dL) Date Value 05/08/2022 10.2 04/12/2021 10.0 Platelet Count (k/uL) Date Value 05/08/2022 88 04/12/2021 94 Liver Function: ALT (U/L) Date Value 05/08/2022 20 04/12/2021 26 AST (U/L) Date Value 05/08/2022 21 04/12/2021 22 Please advise. Thank you. Estefani Patel RN documented in this encounter [facility] 05-30-2022 Note [facility] 05-29-2022 Note [facility] 05-29-2022 Miscellaneous Notes Patient currently receives Dexcom G6 from DME ([facility]). She is interested in upgrading to the Dexcom G7 model. We discussed that Medicare only covers a new reader every 5 years but she may be able to get Dexcom G7 sensors to use with phone. [facility] needs printed orders for Dexcom G7 model. Please process pended orders as print rx. Once PCP has signed, please fax to [facility] at [phone]. Pending orders: Requested Prescriptions Pending Prescriptions Disp Refills Blood-Glucose Meter,Continuous (DEXCOM G7 CHIP BIN OPERATOR) misc 1 Each 0 Sig: Use to check blood sugar at least four (4) times daily. Blood-Glucose Sensor (DEXCOM G7 SENSOR) brady 9 Each 3 Sig: Apply new sensor every ten (10) days. Charlotte Gurrola PharmD, BCACP Primary Care Clinical Pharmacist Patient asking message be sent to Charlotte: Reports she spoke with [facility] and they need Charlotte to send them a referral for the Dexcom G 7. Please phone patient with any questions. documented in this encounter [facility] 05-29-2022 History of Present illness Narrative Images from the original note were not included. Primary Care Pharmacy Visit CC (Reason for Consult): Diabetes Goal: A1c < 8% Collaborating Provider: Dr. Hunt Last Collaborating Physician/RESEARCH FOOD TECHNOLOGIST Visit: 05/02/22 Christina Guerrier is a 66 year old female presenting for follow up visit by telephone. Patient consents to pharmacy collaborative practice agreement. At last visit with pharmacy on 05/14 the following changes were made: sliding scale was started. INTERIM HISTORY: Wonders if she can update to Dexcom G7, does not get readings right away on her G6 model -turns off bluetooth between BG checks Reports BG readings are improving Has started to use the sliding scale, finds at most injections of Novolog that dose remains ~25 units Current DM Medications: Insulin glargine (Lantus) 50 units BID Insulin aspart (Novolog) 25 units TIDAC plus sliding scale Add 0 units if Blood Sugar (BS) is between 70-150 Add 2 units if BS is between 151-200 Add 4 units if BS is between 201-250 Add 6 units if BS is between 251-300 Add 8 units if BS is between 301-350 Add 10 units if BS is between 351-400 BS > 400 , call your physician GLYCEMIC CONTROL: - Share code: [id number] CGM Report Summary of CGM Findings: 1- CGM recording is NOT adequate for interpretation. (Only 47.7% of readings captured) 2- Average glucose is 204 mg/dL. 3- Total frequency of hypoglycemia: none 4- Nocturnal hypoglycemia was not noted. 5- Hyperglycemic episodes: 54% 6- Time in target range (70-180 mg/dL): 46% ROS: Patient denies CP, SOB, VIDES, blurred vision, dizziness or lightheadedness Patient denies nausea, vomiting, diarrhea, abdominal pain Patient denies symptoms of hypoglycemia (sweating, anxiety, palpitations, hunger, and tremor) Patient denies symptoms of hyperglycemia (polyuria, polydipsia, polyphagia) Patient denies potential medication adverse effects MEDICATIONS: Pill bottles are not present Adherence: denies missed doses [facility] Rx coverage: [employer] HMO Medicare + [facility] Affordability: no issues Diabetes supplies: [employer] System: pill box ACTIVE PROBLEM LIST WOUND (NOT COMPLICATED) - OPEN 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 Osteoporosis Osteomalacia, Unspecified Celiac Disease Unspecified Vitamin D Deficiency Liver Replaced By Transplant (Hcc) Complications of Transplanted Liver (Hcc) Need for Prophylactic Immunotherapy Hypersplenism Raul (Obstructive Sleep Apnea) Summary T2dm (Type 2 Diabetes Mellitus) (Hcc) Hypertension Recurrent Cellulitis of Lower Leg Acquired Hypothyroidism Sandhya (Iron Deficiency Anemia) Iron Malabsorption Anemia of Chronic Kidney Failure, Stage 4 (Severe) (Hcc) Ckd (Chronic Kidney Disease) Stage 4, Gfr 15-29 Ml/Min (Hcc) Anemia in Stage 4 Chronic Kidney Disease (Hcc) Obesity, Class Iii, Bmi 40-49.9 (Morbid Obesity) (Hcc) Pain in Right Hip Cellulitis of Back Hx of Transfusion Thrombocytopenia, Secondary Lymphedema Grade II Diastolic Dysfunction Bilateral Lower Extremity Edema Sob (Shortness of Breath) On Exertion Encounter for Screening for Cardiovascular Disorders Primary Hypertension Abnormal Stress Test Cancer (Hcc) Krueger's Palsy Coronary Artery Disease Involving [place] Coronary Artery of [place] Heart Without Angina Pectoris Stable Angina (Hcc) Hospital Discharge Follow-Up PAST MEDICAL HISTORY Diagnosis Date Abdominal pain 12/21/2014 Diffuse abdominal pain x 6 days Worsened with palpation on LLQ and epigastric No diarrhea no vomiting no alcohol drink no sick contact no change in stool no melena Ddx: viral GI vs any intraabdominal pathology or infection in a setting of immunosuppressed patient Plan CT abd wo Levin culture Acute renal failure superimposed on stage 4 chronic kidney disease (HCC) 01/02/2020 Anemia Anemia in stage 4 chronic kidney disease (HCC) 12/17/2016 Anemia of chronic kidney failure, stage 4 (severe) (HCC) 12/11/2016 Anxiety Arthritis Krueger's palsy CAD (coronary artery disease) Cancer (HCC) uterine and cervical Celiac disease 2007 Cellulitis of back except buttock Cirrhosis of liver without mention of alcohol CKD (chronic kidney disease) Dialysis M/W/F [facility] COPD (chronic obstructive pulmonary disease) (HCC) Diabetes mellitus without mention of complication Diabetic polyneuropathy (HCC) 02/04/2017 Disorder of thyroid DVT (deep venous thrombosis) (HCC) Esophageal reflux Hammer toes, bilateral 11/30/2016 History of transfusion Hypertension Incisional hernia 12/30/2008 Liver replaced by transplant (HCC) 2008 - Cirrhosis s/p OLT 2008 - Cirrhosis 04/05 [facility] Plan: - Continue Tacrolimus 1.5 mg BID - daily Tacrolimus levels - Continue Otezla 30 mg BID Lymphedema RAUL (obstructive sleep apnea) does not use CPAP Other and unspecified hyperlipidemia Other lymphedema runs in family PMH - PAST MEDICAL HISTORY OF 1998 endometrial cancer, had complete hysterectomy Psoriasis and similar disorders [place]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 Take on empty stomach. For Thyroid insulin aspart U-100 (NOVOLOG U-100 INSULIN ASPART) 100 unit/mL Inject 20 units before breakfast, 25 units before lunch, and 25 units before dinner. Plus sliding scale (2 units for every 50 mg/dL above 150 mg/dL) insulin glargine (LANTUS U-100 INSULIN) 100 unit/mL injection Inject 50 Units subcutaneously twice daily. Via Syringe cholestyramine-sucrose (QUESTRAN) 4 gram powder Take 4 g by mouth twice daily with meals. gabapentin (NEURONTIN) 100 mg capsule Take 2 capsules by mouth daily at bedtime for 180 days. colestipol (COLESTID) 1 gram tablet Take 1 tablet by mouth twice daily. torsemide (DEMADEX) 20 mg tablet Take 2 tablets by mouth once daily. rOPINIRole (REQUIP) 1 mg tablet Take one tab in the morning and 2 in the evening loperamide HCl (LOPERAMIDE ORAL) Take 4 mg by mouth as needed. albuterol HFA (PROVENTIL HFA, VENTOLIN HFA) 90 mcg/actuation inhaler dicyclomine (BENTYL) 20 mg tablet As needed diphenoxylate-atropine (LOMOTIL) 2.5-0.025 mg per tablet As needed Ascorbic Acid 500 mg chew Take 500 mg by mouth once daily. traZODone (DESYREL) 100 mg tablet Take 2 tablets by mouth daily at bedtime. blood sugar diagnostic (BLOOD GLUCOSE TEST) test strip Test blood sugar(s) 5 times daily. Dx: Type 2 DM - Controlled E11.9 Insulin: Yes tacrolimus IR (PROGRAF) 0.5 mg capsule TAKE 1 CAPSULE TWICE DAILY Blood-Glucose Transmitter (DEXCOM G6 TRANSMITTER) brady Apply new transmitter every 90 days. Clean transmitter with an alcohol swab with each sensor change. Blood-Glucose Meter,Continuous (DEXCOM G6 CHIP BIN OPERATOR) [facility] [place] to check blood sugar at least four (4) times daily. Blood-Glucose Sensor (DEXCOM G6 SENSOR) brady Apply new sensor every ten (10) days to abdomen. melatonin 5 mg tablet Take 10 mg by mouth daily at bedtime. Insulin Syringe-Needle U-100 0.5 mL 31 gauge x 5/16 Use to inject insulin 5 times daily as directed. clopidogrel (PLAVIX) 75 mg tablet Take 1 tablet by mouth once daily. nitroglycerin sublingual (NITROQUICK) 0.4 mg SL tablet Dissolve 1 tablet under the tongue every 5 minutes as needed for chest pain. apremilast (OTEZLA) 30 mg tablet Take 1 tablet by mouth once daily. atorvastatin (LIPITOR) 10 mg tablet Take 1 tablet by mouth once daily. carvedilol (COREG) 12.5 mg tablet Take 1 tablet by mouth twice daily. pantoprazole DR (PROTONIX) 40 mg tablet Take 1 tablet by mouth once daily. As needed for upset stomach (Patient taking differently: Take 40 mg by mouth twice daily. As needed for upset stomach ) sertraline (ZOLOFT) 50 mg tablet Take 1 tablet by mouth once daily. sevelamer carbonate (RENVELA) 800 mg tablet Take by mouth. Taking 2 tablet with breakfast, 2 tablet with lunch, and 2 tablets with dinner as directed. B Complex-Vitamin C-Folic Acid (RENAL VITAMIN) 0.8 mg tab Take 1 tablet by mouth once daily. Blood-Glucose Meter monitoring kit Glucose Meter of Choice - Kit - Dx: Type 2 DM - Uncontrolled E11.65 with hypoglycemia Insulin: yes cholecalciferol (VITAMIN D3) 1,000 unit tab tablet Take 1,000 Units by mouth twice daily. vitamin B complex (B COMPLEX-VITAMIN B12 ORAL) Take 5,000 mcg by mouth once daily. Ascorbic Acid 1,000 mg tablet Take 1,000 mg by mouth once daily. ACCU-CHEK MULTICLIX LANCET lancets TEST BLOOD SUGAR 4 TO 5 TIMES DAILY. + Nebulizer Supplies Nebulizer, Mask, & O2 Tubing. Use as directed. Current Facility-Administered Medications Medication Dose Route Frequency perflutren lipid microspheres 1.3 mL in NaCl (PF) 0.9% 10 mL injection (DEFINITY) INTRAVENOUS DIRECTED PRN sodium chloride 0.9 % (flush) 10 mL (BD POSIFLUSH) 10 mL INTRAVENOUS DIRECTED PRN EXAM: Last 3 Encounter BP Readings: Date: BP: 05/02/2022 98/46 02/05/2022 110/50 01/29/2022 140/68 Wt: 113.4 kg (250 lb) BMI: 41.60 kg/(m^2) LABS: Lab Results Component Value Date HBA1C 6.5 05/02/2022 HBA1C 6.0 10/20/2021 HBA1C 7.3 05/10/2021 HBA1C 7.2 11/15/2020 HBA1C 6.6 05/05/2020 HBA1C 8.0 01/02/2020 CMP: Glucose 180 05/08/2022 BUN 29 05/08/2022 Creatinine 5.83 05/08/2022 Sodium 136 05/08/2022 Potassium 6.6 05/08/2022 Chloride 98 05/08/2022 CO2 Content, Venous 29 05/08/2022 Protein, Total 6.7 05/08/2022 Albumin 3.8 05/08/2022 Calcium 9.5 05/08/2022 Alkaline Phosphatase 68 05/08/2022 Bilirubin, Total 0.5 05/08/2022 AST 21 05/08/2022 ALT 20 05/08/2022 Serum creatinine: 5.83 mg/dL (H) 05/08/22 0818 Estimated creatinine clearance: 12.3 mL/min (A) GFR (RENFUN) (mL/min/1.73m2) Date Value 02/18/2008 52 GFR (RENFUN) (mL/min/1.73m2) Date Value 02/18/2008 52 eGFR- (no units) Date Value 04/12/2021 24 Lab Results Component Value Date CHOL 143 05/08/2022 CHOL 145 04/12/2021 LDL 74 05/08/2022 LDL 43 04/12/2021 HDL 35 05/08/2022 HDL 32 04/12/2021 TG 170 05/08/2022 TG 349 04/12/2021 The 10-year ASCVD risk score (Carla RIVERA, et al., 2019) is: 7.7% Values used to calculate the score: Age: 66 years Sex: Female Is Non- : No Diabetic: Yes Tobacco smoker: No Systolic Blood Pressure: 98 mmHg Is BP treated: Yes HDL Cholesterol: 35 mg/dL Total Cholesterol: 143 mg/dL Albumin/Creat Ratio (mg/g) Date Value 05/19/2020 254 (H) PHARMACOTHERAPY ASSESSMENT/PLAN: 1. Type 2 diabetes mellitus with microalbuminuria, with long-term current use of insulin ([facility]) - ICD9: 250.40, 791.0, V58.67, ICD10: E11.29, R80.9, Z79.4 A1c goal < 7%; A1c at goal (6.5%) but it is not truly reflective of BG control given HD and anemia; Patient endorses readings improving with addition of sliding scale. Limited CGM readings due to not keeping blue tooth on, so limited reading being captured from sensor. Reviewed to keep blue tooth on on phone so Dexcom heather and sensor can communicate to capture all readings. Today, will continue same regimen. Continue Novolog 25 units before first bite of meal three times daily plus sliding scale Add 0 units if Blood Sugar (BS) is between 70-150 Add 2 units if BS is between 151-200 Add 4 units if BS is between 201-250 Add 6 units if BS is between 251-300 Add 8 units if BS is between 301-350 Add 10 units if BS is between 351-400 BS > 400 , call your physician Continue Lantus 50 units BID Instructed patient to check with her DME ([facility]) on when she can get her new Dexcom G7 reader approved by medicare Follow up: Patient is scheduled to see PCP team on 05/30/22. Patient to follow up with pharmD on 06/26/22. Patient verbalized understanding of instructions. Charlotte Gurrola PharmD, BCACP Primary Care Clinical Pharmacist The majority of the pharmacy visit (> 50%) was spent counseling and/or coordinating care for the patient. [Telephonic] time was 22 minutes. documented in this encounter [facility] 05-23-2022 Note [facility] 05-23-2022 Miscellaneous Notes Spoke to pt to let her know the orders have been placed for her evaluation and a plumbing assembler should be contacting her within a week. I advised her to lose weight with her current BMI 42, she would not be able to be listed until 40. She said her ht is 5'6 not 5'4.5 . I said we would need to remeasure her as there are different hts in her chart documented in this encounter [facility] 05-23-2022 History of Present illness Narrative HX: [facility] prior to liver transplant; 1998 had Uterine/cervial cancer: full hysterectomy without chemo/radiation; (3) cardiac stents; 04-04-21 TTE EF 53%; appendectomy; cholecystectomy; depression; COPD ( uses inhaler); uses O2 at dialysis only -Blood thinner: Plavix New Referral Referring Physician Ricki Dc Organ Type Kidney ESRD Yes DM/HTN Dialysis Dependant? Yes HD started 10-19-20 Name of Dialysis Facility: [facility] Diabetes Yes. Diagnosed at age 52 and Type 2 insulin Smoking never Current BMI 42 Previous Transplant Yes Organ type: Liver Date of Last Transplant 05-05-2008 Transplant Center: [facility] Currently Listed? no Willing to accept blood transfusion? yes Potential Living Donor? no Full Transplant Evaluation? Yes ( CT abd/pel done 02-14-21) Malnutrition Screening Tool (MST) 1. Have you lost weight without trying? No- 0 Weight loss score: 0 2. Have you been eating poorly in the last week because of a decreased appetite? No- 0 Appetite score: 0 Total MST score (weight loss + appetite scores): 0 Score of 2 or more = referral to registered dietitian for an individual appointment Renetta Mendez RN Pre-Kidney & Pancreas Driller Portable [facility] documented in this encounter [facility] 05-17-2022 Note [facility] 05-16-2022 Miscellaneous Notes Patient has been identified by name and date of : No Patient phones for refill(s): Requested Prescriptions Pending Prescriptions Disp Refills levothyroxine (LEVOXYL) 88 mcg tablet 90 tablet 3 Sig: Take 1 tablet by mouth once daily. Take on empty stomach. For Thyroid Date of last office visit in primary care: 05/02/22 Last 2 Encounter Wt Readings: Date: Wt: 05/02/2022 113.4 kg (250 lb) 02/05/2022 110.2 kg (243 lb) Previous labs/tests for medication: Thyroid: TSH Date Value 05/02/2022 2.250 mIU/L 03/28/2021 1.450 uU/mL Please advise. Thank you. Franci Quinn LPN Patient has been identified by name and date of : Yes Last office visit in this department: 05/02/2022 RX INSTRUCTIONS: Patient aware RX will be sent to pharmacy. No need to notify patient. Patient phones requesting refills as follows: Requested Prescriptions Pending Prescriptions Disp Refills levothyroxine (LEVOXYL) 88 mcg tablet 90 tablet 3 Sig: Take 1 tablet by mouth once daily. Take on empty stomach. For Thyroid Please review and advise. Litzy Esparza Pss documented in this encounter [facility] 05-14-2022 Note [facility] 05-14-2022 History of Present illness Narrative Images from the original note were not included. Primary Care Pharmacy Visit CC (Reason for Consult): Diabetes Goal: A1c < 8% Collaborating Provider: Dr. Hunt Last Collaborating Physician/RESEARCH FOOD TECHNOLOGIST Visit: 05/02/22 Christina Guerrier is a 66 year old female presenting for follow up visit by telephone. Patient consents to pharmacy collaborative practice agreement. At last visit with PROPERTY MANAGEMENT COORDINATOR on 05/02/22 the following changes were made: no medication changes made, patient advised to reschedule with pharmacist for DM management. INTERIM HISTORY: Patient notes BG readings largely fluctuating No changes in diet, activity level States they have been consistently more elevated Often times later in the day Current DM Medications: Insulin glargine (Lantus) 50 units BID Insulin aspart (Novolog) 25 units TIDAC GLYCEMIC CONTROL: CGM Report Summary of CGM Findings: 1- CGM recording is NOT adequate for interpretation. (Only 43% sensor capture) 2- Average glucose is 201 mg/dL. 3- Total frequency of hypoglycemia: 4- Nocturnal hypoglycemia was not noted. 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 Osteoporosis Osteomalacia, Unspecified Celiac Disease Unspecified Vitamin D Deficiency Liver Replaced By Transplant (Hcc) Complications of Transplanted Liver (Hcc) Need for Prophylactic Immunotherapy Hypersplenism Raul (Obstructive Sleep Apnea) Summary T2dm (Type 2 Diabetes Mellitus) (Hcc) Hypertension Recurrent Cellulitis of Lower Leg Acquired Hypothyroidism [place]a (Iron Deficiency Anemia) Iron Malabsorption Anemia of Chronic Kidney Failure, Stage 4 (Severe) (Hcc) Ckd (Chronic Kidney Disease) Stage 4, Gfr 15-29 Ml/Min (Hcc) Anemia in Stage 4 Chronic Kidney Disease (Hcc) Obesity, Class Iii, Bmi 40-49.9 (Morbid Obesity) (Hcc) Pain in Right Hip Cellulitis of Back Hx of Transfusion Thrombocytopenia, Secondary Lymphedema Grade II Diastolic Dysfunction Bilateral Lower Extremity Edema Sob (Shortness of Breath) On Exertion Encounter for Screening for Cardiovascular Disorders Primary Hypertension Abnormal Stress Test Cancer (Hcc) Krueger's Palsy Coronary Artery Disease Involving [place] Coronary Artery of [place] Heart Without Angina Pectoris Stable Angina (Hcc) Hospital Discharge Follow-Up PAST MEDICAL HISTORY Diagnosis Date Abdominal pain 12/21/2014 Diffuse abdominal pain x 6 days Worsened with palpation on LLQ and epigastric No diarrhea no vomiting no alcohol drink no sick contact no change in stool no melena Ddx: viral GI vs any intraabdominal pathology or infection in a setting of immunosuppressed patient Plan CT abd wo Levin culture Acute renal failure superimposed on stage 4 chronic kidney disease (HCC) 01/02/2020 Anemia Anemia in stage 4 chronic kidney disease (HCC) 12/17/2016 Anemia of chronic kidney failure, stage 4 (severe) (HCC) 12/11/2016 Anxiety Arthritis Krueger's palsy CAD (coronary artery disease) Cancer (HCC) uterine and cervical Celiac disease 2007 Cellulitis of back except buttock Cirrhosis of liver without mention of alcohol CKD (chronic kidney disease) Dialysis M/W/F [facility] COPD (chronic obstructive pulmonary disease) (HCC) Diabetes mellitus without mention of complication Diabetic polyneuropathy (HCC) 02/04/2017 Disorder of thyroid DVT (deep venous thrombosis) (HCC) Esophageal reflux Hammer toes, bilateral 11/30/2016 History of transfusion Hypertension Incisional hernia 12/30/2008 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 Plan: - Continue Tacrolimus 1.5 mg BID - daily Tacrolimus levels - Continue Otezla 30 mg BID Lymphedema RAUL (obstructive sleep apnea) does not use CPAP Other and unspecified hyperlipidemia Other lymphedema runs in family PMH - PAST MEDICAL HISTORY OF 1998 endometrial cancer, had complete hysterectomy Psoriasis and similar disorders [place]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 Via Syringe cholestyramine-sucrose (QUESTRAN) 4 gram powder Take 4 g by mouth twice daily with meals. insulin aspart U-100 (NOVOLOG U-100 INSULIN ASPART) 100 unit/mL Inject 20 units before breakfast, 25 units before lunch, and 25 units before dinner as directed. Type 2 diabetes mellitus with microalbuminuria, with long-term current use of insulin ([facility]) - Primary E11.29, R80.9, Z79.4 gabapentin (NEURONTIN) 100 mg capsule Take 2 capsules by mouth daily at bedtime for 180 days. colestipol (COLESTID) 1 gram tablet Take 1 tablet by mouth twice daily. torsemide (DEMADEX) 20 mg tablet Take 2 tablets by mouth once daily. rOPINIRole (REQUIP) 1 mg tablet Take one tab in the morning and 2 in the evening loperamide HCl (LOPERAMIDE ORAL) Take 4 mg by mouth as needed. albuterol HFA (PROVENTIL HFA, VENTOLIN HFA) 90 mcg/actuation inhaler dicyclomine (BENTYL) 20 mg tablet As needed diphenoxylate-atropine (LOMOTIL) 2.5-0.025 mg per tablet As needed Ascorbic Acid 500 mg chew Take 500 mg by mouth once daily. traZODone (DESYREL) 100 mg tablet Take 2 tablets by mouth daily at bedtime. blood sugar diagnostic (BLOOD GLUCOSE TEST) test strip Test blood sugar(s) 5 times daily. Dx: Type 2 DM - Controlled E11.9 Insulin: Yes tacrolimus IR (PROGRAF) 0.5 mg capsule TAKE 1 CAPSULE TWICE DAILY Blood-Glucose Transmitter (DEXCOM G6 TRANSMITTER) brady Apply new transmitter every 90 days. Clean transmitter with an alcohol swab with each sensor change. Blood-Glucose Meter,Continuous (DEXCOM G6 CHIP BIN OPERATOR) [facility] [place] to check blood sugar at least four (4) times daily. Blood-Glucose Sensor (DEXCOM G6 SENSOR) brady Apply new sensor every ten (10) days to abdomen. melatonin 5 mg tablet Take 10 mg by mouth daily at bedtime. Insulin Syringe-Needle U-100 0.5 mL 31 gauge x 5/16 Use to inject insulin 5 times daily as directed. clopidogrel (PLAVIX) 75 mg tablet Take 1 tablet by mouth once daily. nitroglycerin sublingual (NITROQUICK) 0.4 mg SL tablet Dissolve 1 tablet under the tongue every 5 minutes as needed for chest pain. apremilast (OTEZLA) 30 mg tablet Take 1 tablet by mouth once daily. atorvastatin (LIPITOR) 10 mg tablet Take 1 tablet by mouth once daily. carvedilol (COREG) 12.5 mg tablet Take 1 tablet by mouth twice daily. levothyroxine (LEVOXYL) 88 mcg tablet Take 1 tablet by mouth once daily. Take on empty stomach. For Thyroid pantoprazole DR (PROTONIX) 40 mg tablet Take 1 tablet by mouth once daily. As needed for upset stomach (Patient taking differently: Take 40 mg by mouth twice daily. As needed for upset stomach ) sertraline (ZOLOFT) 50 mg tablet Take 1 tablet by mouth once daily. sevelamer carbonate (RENVELA) 800 mg tablet Take by mouth. Taking 2 tablet with breakfast, 2 tablet with lunch, and 2 tablets with dinner as directed. B Complex-Vitamin C-Folic Acid (RENAL VITAMIN) 0.8 mg tab Take 1 tablet by mouth once daily. Blood-Glucose Meter monitoring kit Glucose Meter of Choice - Kit - Dx: Type 2 DM - Uncontrolled E11.65 with hypoglycemia Insulin: yes cholecalciferol (VITAMIN D3) 1,000 unit tab tablet Take 1,000 Units by mouth twice daily. vitamin B complex (B COMPLEX-VITAMIN B12 ORAL) Take 5,000 mcg by mouth once daily. Ascorbic Acid 1,000 mg tablet Take 1,000 mg by mouth once daily. ACCU-CHEK MULTICLIX LANCET lancets TEST BLOOD SUGAR 4 TO 5 TIMES DAILY. + Nebulizer Supplies Nebulizer, Mask, & O2 Tubing. Use as directed. Current Facility-Administered Medications Medication Dose Route Frequency perflutren lipid microspheres 1.3 mL in NaCl (PF) 0.9% 10 mL injection (DEFINITY) INTRAVENOUS DIRECTED PRN sodium chloride 0.9 % (flush) 10 mL (BD POSIFLUSH) 10 mL INTRAVENOUS DIRECTED PRN EXAM: Last 3 Encounter BP Readings: Date: BP: 05/02/2022 98/46 02/05/2022 110/50 01/29/2022 140/68 Wt: 250 lb (113.4 kg) BMI: 41.60 kg/(m^2) LABS: ESRD on dialysis on [facility] Liver transplant list Lab Results Component Value Date HBA1C 6.5 05/02/2022 HBA1C 6.0 10/20/2021 HBA1C 7.3 05/10/2021 HBA1C 7.2 11/15/2020 HBA1C 6.6 05/05/2020 HBA1C 8.0 01/02/2020 CMP: Glucose 180 05/08/2022 BUN 29 05/08/2022 Creatinine 5.83 05/08/2022 Sodium 136 05/08/2022 Potassium 6.6 05/08/2022 Chloride 98 05/08/2022 CO2 Content, Venous 29 05/08/2022 Protein, Total 6.7 05/08/2022 Albumin 3.8 05/08/2022 Calcium 9.5 05/08/2022 Alkaline Phosphatase 68 05/08/2022 Bilirubin, Total 0.5 05/08/2022 AST 21 05/08/2022 ALT 20 05/08/2022 Serum creatinine: 5.83 mg/dL (H) 05/08/22 0818 Estimated creatinine clearance: 12.3 mL/min (A) GFR (RENFUN) (mL/min/1.73m2) Date Value 02/18/2008 52 GFR (RENFUN) (mL/min/1.73m2) Date Value 02/18/2008 52 eGFR- (no units) Date Value 04/12/2021 24 Lab Results Component Value Date CHOL 143 05/08/2022 CHOL 145 04/12/2021 LDL 74 05/08/2022 LDL 43 04/12/2021 HDL 35 05/08/2022 HDL 32 04/12/2021 TG 170 05/08/2022 TG 349 04/12/2021 The 10-year ASCVD risk score (Carla RIVERA, et al., 2019) is: 7.7% Values used to calculate the score: Age: 66 years Sex: Female Is Non- : No Diabetic: Yes Tobacco smoker: No Systolic Blood Pressure: 98 mmHg Is BP treated: Yes HDL Cholesterol: 35 mg/dL Total Cholesterol: 143 mg/dL Albumin/Creat Ratio (mg/g) Date Value 05/19/2020 254 (H) PHARMACOTHERAPY ASSESSMENT/PLAN: 1. Type 2 diabetes mellitus with microalbuminuria, with long-term current use of insulin ([facility]) - ICD9: 250.40, 791.0, V58.67, ICD10: E11.29, R80.9, Z79.4 A1c goal < 7%; A1c at goal (6%) but it is not truly reflective of BG control given HD and anemia; CGM report shows BGs uncontrolled (TIR 47%); Today, provided patient with a sliding scale to utilize with meal time insulin and encouraged continued adherence to regimen. Inject Novolog 25 units before first bite of meal three times daily plus sliding scale. Add 0 units if Blood Sugar (BS) is between 70-150 Add 2 units if BS is between 151-200 Add 4 units if BS is between 201-250 Add 6 units if BS is between 251-300 Add 8 units if BS is between 301-350 Add 10 units if BS is between 351-400 BS > 400 , call your physician Continue Lantus 50 units BID Follow up: Patient is scheduled to see PCP team on 05/30/22. Patient to follow up with pharmD on 05/29/22. Patient verbalized understanding of instructions. Charlotte Gurrola PharmD, BCACP Primary Care Clinical Pharmacist The majority of the pharmacy visit (> 50%) was spent counseling and/or coordinating care for the patient. [Telephonic] time was 25 minutes. documented in this encounter [facility] 05-08-2022 Note [facility] 05-08-2022 History of Present illness Narrative Radiology Service Progress Note PATIENT NAME: Christina Guerrier DATE OF SERVICE: May 08, 2022 TIME: 7:28 AM PATIENT IDENTITY VERIFICATION COMPLETED USING TWO (2) IDENTIFIERS: Name and Date of confirmed by patient verbally. FALL SCREENING: Has the patient had 2 falls in the last year or 1 fall with injury or currently using an Ambulatory Assistive Device (Walker, Cane, Wheelchair, Crutches, etc.)? No PATIENT GENDER DATA: Female. status: : No status: NO. PATIENT RELEVANT IMPLANT DATA REVIEWED: Not Applicable RADIOLOGY DEPARTMENT: Mammography PERIPHERAL IV DATA: Not applicable SIGNED BY: Josephine Segundo Genalyte May 08, 2022 7:28 AM documented in this encounter [facility] 05-03-2022 Note [facility] 05-03-2022 History of Present illness Narrative This is a virtual visit using [employer] video visit. It required patient-provider interaction for the medical decision making as documented below. Christina Guerrier is a 66 year old female seen for diarrhea. Patient tells me that she has been dealing with diarrhea after dialysis. Gets a rumbles then will have to go. On non-dialysis days, has no issues. Thinks the Colestid is helping, will use Imodium PRN which will also help. Denies abdominal pain, nausea, vomiting. Component Latest Ref Rng & Units 05/02/2022 WBC 3.70 - 11.00 k/uL 4.00 RBC 3.90 - 5.20 m/uL 2.90 (L) Hemoglobin 11.5 - 15.5 g/dL 9.2 (L) Hematocrit 36.0 - 46.0 % 30.5 (L) MCV 80.0 - 100.0 fL 105.2 (H) MCH 26.0 - 34.0 pg 31.7 MCHC 30.5 - 36.0 g/dL 30.2 (L) RDW-CV 11.5 - 15.0 % 19.1 (H) Platelet Count 150 - 400 k/uL 113 (L) MPV 9.0 - 12.7 fL 11.5 Neut% % 75.2 Abs Neut (ANC) 1.45 - 7.50 k/uL 3.01 Lymph% % 13.0 Abs Lymph 1.00 - 4.00 k/uL 0.52 (L) [place]% % 7.3 Abs [place] <0.87 k/uL 0.29 Eosin% % 2.5 Abs Eosin <0.46 k/uL 0.10 Baso% % 0.5 Abs Baso <0.11 k/uL <0.03 Immature Gran % % 1.5 IMMATURE GRANS (ABS) <0.10 k/uL 0.06 NRBC /100 WBC 2.8 Absolute nRBC <0.01 k/uL 0.11 (H) DTYPE Auto Protein, Total 6.3 - 8.0 g/dL 6.8 Albumin 3.9 - 4.9 g/dL 3.6 (L) Calcium 8.5 - 10.2 mg/dL 9.5 Bilirubin, Total 0.2 - 1.3 mg/dL 0.4 Alkaline Phosphatase 34 - 123 U/L 67 AST 13 - 35 U/L 22 ALT 7 - 38 U/L 22 Glucose 74 - 99 mg/dL 249 (H) BUN 7 - 21 mg/dL 22 (H) Creatinine 0.58 - 0.96 mg/dL 4.99 (H) Sodium 136 - 144 mmol/L 135 (L) Potassium 3.7 - 5.1 mmol/L 5.8 (H) Chloride 97 - 105 mmol/L 94 (L) CO2 22 - 30 mmol/L 29 Anion Gap 9 - 18 mmol/L 12 eGFR >=60 mL/min/1.73m 9 (L) Hemoglobin A1C (POCT) 4.2 - 5.6 % 6.5 TSH 0.270 - 4.200 mIU/L 2.250 T3 79 - 165 ng/dL 77 (L) Free T4 0.9 - 1.7 ng/dL 1.2 HISTORY REVIEWED (electronic chart updated): PAST MEDICAL HISTORY Diagnosis Date Abdominal pain 12/21/2014 Diffuse abdominal pain x 6 days Worsened with palpation on LLQ and epigastric No diarrhea no vomiting no alcohol drink no sick contact no change in stool no melena Ddx: viral GI vs any intraabdominal pathology or infection in a setting of immunosuppressed patient Plan CT abd wo Levin culture Acute renal failure superimposed on stage 4 chronic kidney disease (HCC) 01/02/2020 Anemia Anemia in stage 4 chronic kidney disease (HCC) 12/17/2016 Anemia of chronic kidney failure, stage 4 (severe) (HCC) 12/11/2016 Anxiety Arthritis Krueger's palsy CAD (coronary artery disease) Cancer (HCC) uterine and cervical Celiac disease 2007 Cellulitis of back except buttock Cirrhosis of liver without mention of alcohol CKD (chronic kidney disease) Dialysis M/W/F [facility] COPD (chronic obstructive pulmonary disease) (HCC) Diabetes mellitus without mention of complication Diabetic polyneuropathy (HCC) 02/04/2017 Disorder of thyroid DVT (deep venous thrombosis) (HCC) Esophageal reflux Hammer toes, bilateral 11/30/2016 History of transfusion Hypertension Incisional hernia 12/30/2008 Liver replaced by transplant (HCC) 2008 - Cirrhosis s/p OLT 2008 - Cirrhosis / [facility] Plan: - Continue Tacrolimus 1.5 mg BID - daily Tacrolimus levels - Continue Otezla 30 mg BID Lymphedema RAUL (obstructive sleep apnea) does not use CPAP Other and unspecified hyperlipidemia Other lymphedema runs in family PMH - PAST MEDICAL HISTORY OF 1998 endometrial cancer, had complete hysterectomy Psoriasis and similar disorders [place]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 No colitis. Poor rectal sphincter tone. Referred to Oriana Newberry. COLONOSCOPY FLX DX W/COLLJ SPEC WHEN PFRMD 11/29/2011 [facility] /Dr. Anderson COLONOSCOPY FLX DX W/COLLJ SPEC WHEN PFRMD 07/2011 Jann[facility] COLONOSCOPY FLX DX W/COLLJ SPEC WHEN PFRMD 09/2011 Dr. Lagunas [facility] ESOPHAGOGASTRODUODENOSCOPY TRANSORAL DIAGNOSTIC 12/2009 [facility] Janneth ESOPHAGOGASTRODUODENOSCOPY TRANSORAL DIAGNOSTIC 12/2010 [facility] Janneth FISTULA HERNIA REPAIR HX 12/2008 incisional hernia repair LVR ALTRNSPLJ ORTHOTOPIC PRTL/WHL DON ANY AGE 0507/2008 PAST SURGICAL HISTORY OF 1989 left ovary/cyst removal PAST SURGICAL HISTORY OF 1974 all teeth removed SKIN BIOPSY HX TOTAL ABDOMINAL HYSTERECT W/WO RMVL TUBE OVARY 1998 Hysterectomy, FRANSISCA -for endometrial cancer VAGINAL HYSTERECTOMY VASCULAR SURGERY PROCEDURE FAMILY HISTORY Problem Relation Age of Onset Cancer Father age 73 lung CA Stroke Father Ischemic Heart Disease Father [place] age 70s Diabetes Mother age 76 other (Dementia) Mother other (CHF) Mother other (Lymphedema) Mother other (renal failure) Mother Psoriasis Brother other (cirrhosis) Brother from aneurysm at age 38 other (psoriasis) Brother Social History Tobacco Use Smoking status: Never Passive exposure: Yes Smokeless tobacco: Never Tobacco comments: Parents both smoked in childhood home. No household ETS since. Vaping Use Vaping Use: Never used Substance Use Topics Alcohol use: No Drug use: No Current Outpatient Medications Medication Sig insulin aspart U-100 (NOVOLOG U-100 INSULIN ASPART) 100 unit/mL Inject 20 units before breakfast, 25 units before lunch, and 25 units before dinner as directed. Type 2 diabetes mellitus with microalbuminuria, with long-term current use of insulin (HCC) - Primary E11.29, R80.9, Z79.4 gabapentin (NEURONTIN) 100 mg capsule Take 2 capsules by mouth daily at bedtime for 180 days. colestipol (COLESTID) 1 gram tablet Take 1 tablet by mouth twice daily. torsemide (DEMADEX) 20 mg tablet Take 2 tablets by mouth once daily. rOPINIRole (REQUIP) 1 mg tablet Take one tab in the morning and 2 in the evening loperamide HCl (LOPERAMIDE ORAL) Take 4 mg by mouth as needed. albuterol HFA (PROVENTIL HFA, VENTOLIN HFA) 90 mcg/actuation inhaler dicyclomine (BENTYL) 20 mg tablet As needed diphenoxylate-atropine (LOMOTIL) 2.5-0.025 mg per tablet As needed Ascorbic Acid 500 mg chew Take 500 mg by mouth once daily. traZODone (DESYREL) 100 mg tablet Take 2 tablets by mouth daily at bedtime. blood sugar diagnostic (BLOOD GLUCOSE TEST) test strip Test blood sugar(s) 5 times daily. Dx: Type 2 DM - Controlled E11.9 Insulin: Yes tacrolimus IR (PROGRAF) 0.5 mg capsule TAKE 1 CAPSULE TWICE DAILY Blood-Glucose Transmitter (DEXCOM G6 TRANSMITTER) brady Apply new transmitter every 90 days. Clean transmitter with an alcohol swab with each sensor change. Blood-Glucose Meter,Continuous (DEXCOM G6 CHIP BIN OPERATOR) [facility] [place] Use to check blood sugar at least four (4) times daily. Blood-Glucose Sensor (DEXCOM G6 SENSOR) brady Apply new sensor every ten (10) days to abdomen. melatonin 5 mg tablet Take 10 mg by mouth daily at bedtime. Insulin Syringe-Needle U-100 0.5 mL 31 gauge x 5/16 Use to inject insulin 5 times daily as directed. insulin glargine (LANTUS U-100 INSULIN) 100 unit/mL injection Inject 50 Units subcutaneously twice daily. Via Syringe clopidogrel (PLAVIX) 75 mg tablet Take 1 tablet by mouth once daily. nitroglycerin sublingual (NITROQUICK) 0.4 mg SL tablet Dissolve 1 tablet under the tongue every 5 minutes as needed for chest pain. apremilast (OTEZLA) 30 mg tablet Take 1 tablet by mouth once daily. atorvastatin (LIPITOR) 10 mg tablet Take 1 tablet by mouth once daily. carvedilol (COREG) 12.5 mg tablet Take 1 tablet by mouth twice daily. levothyroxine (LEVOXYL) 88 mcg tablet Take 1 tablet by mouth once daily. Take on empty stomach. For Thyroid pantoprazole DR (PROTONIX) 40 mg tablet Take 1 tablet by mouth once daily. As needed for upset stomach (Patient taking differently: Take 40 mg by mouth twice daily. As needed for upset stomach ) sertraline (ZOLOFT) 50 mg tablet Take 1 tablet by mouth once daily. sevelamer carbonate (RENVELA) 800 mg tablet Take by mouth. Taking 2 tablet with breakfast, 2 tablet with lunch, and 2 tablets with dinner as directed. B Complex-Vitamin C-Folic Acid (RENAL VITAMIN) 0.8 mg tab Take 1 tablet by mouth once daily. Blood-Glucose Meter monitoring kit Glucose Meter of Choice - Kit - Dx: Type 2 DM - Uncontrolled E11.65 with hypoglycemia Insulin: yes cholecalciferol (VITAMIN D3) 1,000 unit tab tablet Take 1,000 Units by mouth twice daily. vitamin B complex (B COMPLEX-VITAMIN B12 ORAL) Take 5,000 mcg by mouth once daily. Ascorbic Acid 1,000 mg tablet Take 1,000 mg by mouth once daily. ACCU-CHEK MULTICLIX LANCET lancets TEST BLOOD SUGAR 4 TO 5 TIMES DAILY. + Nebulizer Supplies Nebulizer, Mask, & O2 Tubing. Use as directed. Current Facility-Administered Medications Medication Dose Route Frequency perflutren lipid microspheres 1.3 mL in NaCl (PF) 0.9% 10 mL injection (DEFINITY) INTRAVENOUS DIRECTED PRN sodium chloride 0.9 % (flush) 10 mL (BD POSIFLUSH) 10 mL INTRAVENOUS DIRECTED PRN ALLERGIES Allergen Reactions Clindamycin Vomiting Buspar [Buspirone H* Hives Duricef [Cefadroxil] Hives Keflex [Cephalexin] Rash rash but unsure if it is from keflex Lisinopril Swelling Losartan Swelling Naprosyn [Naproxen] Other: See Comments lowers platelets Niaspan [Niacin] Hives Sulfa (Sulfonamide * Hives Unasyn [Ampicillin-* Hives REVIEW OF SYSTEMS: Review of Systems Constitutional: Negative. Gastrointestinal: Positive for diarrhea. Negative for abdominal pain and blood in stool. PHYSICAL EXAMINATION: VIDEO EXAM: (if completed, performed via video enabled technology) Physical Exam Constitutional: Appearance: Normal appearance. HENT: Head: Normocephalic and atraumatic. Eyes: General: No scleral icterus. Pulmonary: Effort: Pulmonary effort is normal. Skin: Coloration: Skin is not jaundiced. Neurological: General: No focal deficit present. Mental Status: She is alert and oriented to person, place, and time. Psychiatric: Mood and Affect: Mood normal. Behavior: Behavior normal. Thought Content: Thought content normal. Judgment: Judgment normal. Assessment/Plan (R19.7) Diarrhea, unspecified type (primary encounter diagnosis) 1. Diarrhea, unspecified type -- Patient with diarrhea on her Dialysis days, otherwise doing well. -- Notes her pharmacy does not have Colestid. Will send in Questran 4 g BID -- Okay to use Imodium with dialysis if needed -- Will check pancreatic elastase and fecal fat - cholestyramine-sucrose (QUESTRAN) 4 gram powder; Take 4 g by mouth twice daily with meals. Dispense: 348.6 g; Refill: 1 - PANC ELASTASE, FECAL - FAT, FECAL QUAL Follow up in office PRN. Recommended to please call office/go to ER if fever, chills, chest pain, SOB, diarrhea, nausea, emesis, worsening abdominal pain, dehydration occurs I spent a total of 20 minutes on the date of the service which included preparing to see the patient, [id number] patient care, completing clinical documentation, obtaining and/or reviewing separately obtained history, performing a medically appropriate examination, counseling and educating the patient/family/caregiver, and ordering medications, tests, or procedures. Yesica Us PA-C May 03, 2022 11:37 AM documented in this encounter [facility] 05-02-2022 Miscellaneous Notes done Amber Jones RN, BSN Post Liver Driller Portable Patient called she went to get labs Today and her labs are , requesting her Coordinator to Update the orders. documented in this encounter [facility] 05-02-2022 Note [facility] 05-02-2022 History of Present illness Narrative CC: /Patient presents with: Recheck: 3 month follow up HPI Christina Guerrier is a 66 year old female complex patient who presents today for routine follow up. Had dialysis today and has been getting very dizzy with low blood pressures post dialysis. BP at dialysis 89/41 earlier today, in office now 98/46. Does not often check BP at home. States she fell 3-4 weeks ago at the dialysis center hitting her knee because of her dizziness and low blood pressure. Sees Dr. Dc once a month at dialysis and has lab work completed then. Is awaiting to here if she can get on the transplant list. Also feels she gets cold easily and has had a decreased appetite. Went to [place] [facility] last week from dialysis for left shoulder pain with negative xrays and unremarkable lab work. Still with diarrhea has not seen GI yet and colestipol is on back order. Will have this 1-2 times a day pure liquid and will take immodium if needed. Sometimes will get a sharp pain to her right worship with moving her head that is only for a moment. Occurs 1-2 times a week. DIABETES MELLITUS: Ms. Guerrier denies excessive thirst or increased frequency of urination, chest pain or dyspnea , numbness, tingling or pain in extremities, new or unusual visual symptoms, low sugar/hypoglycemic reactions, weight loss/gain, and bowel changes/loose stools. Follows a diabetic diet most of the time. She is compliant with medication(s) and is tolerating med(s) without any side effects. She reports checking her glucose on a continuous schedule with sugars in the fasting 160 and postprandial 200s range. Patient's last HgA1C was Hemoglobin A1C (%) Date Value 10/20/2021 6.0 05/10/2021 7.3 11/15/2020 7.2 05/05/2020 6.6 Hemoglobin A1C (POCT) (%) Date Value 05/02/2022 6.5 ) Last Ophthalmology exam has an appointment later this month. See transplant in may for history of liver transplant. REVIEW OF SYSTEMS General: no fevers, no night sweats, no recurrent infections, , and no significant changes in weight Respiratory: no cough, no wheezing, no shortness of breath, no hemoptysis Cardiovascular: no chest pain, no chest pressure, no palpitations, and no swelling GI: No nausea vomiting or abdominal pain : No history of dysuria, frequency or incontinence Skin: Negative for lesions, rash, and itching Endocrine: no polyuria, no polyphagia, and no polydipsia Neurologic: No headache, weakness, numbness, tingling, syncope. PAST MEDICAL HISTORY Diagnosis Date Abdominal pain 12/21/2014 Diffuse abdominal pain x 6 days Worsened with palpation on LLQ and epigastric No diarrhea no vomiting no alcohol drink no sick contact no change in stool no melena Ddx: viral GI vs any intraabdominal pathology or infection in a setting of immunosuppressed patient Plan CT abd wo Levin culture Acute renal failure superimposed on stage 4 chronic kidney disease (HCC) 01/02/2020 Anemia Anemia in stage 4 chronic kidney disease (HCC) 12/17/2016 Anemia of chronic kidney failure, stage 4 (severe) (HCC) 12/11/2016 Anxiety Arthritis Krueger's palsy CAD (coronary artery disease) Cancer (HCC) uterine and cervical Celiac disease 2008 Cellulitis of back except buttock Cirrhosis of liver without mention of alcohol CKD (chronic kidney disease) Dialysis M/W/F [facility] COPD (chronic obstructive pulmonary disease) (HCC) Diabetes mellitus without mention of complication Diabetic polyneuropathy (HCC) 02/04/2017 Disorder of thyroid DVT (deep venous thrombosis) (HCC) Esophageal reflux Hammer toes, bilateral 11/30/2016 History of transfusion Hypertension Incisional hernia 12/30/2008 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 Plan: - Continue Tacrolimus 1.5 mg BID - daily Tacrolimus levels - Continue Otezla 30 mg BID Lymphedema RAUL (obstructive sleep apnea) does not use CPAP Other and unspecified hyperlipidemia Other lymphedema runs in family PMH - PAST MEDICAL HISTORY OF 1998 endometrial cancer, had complete hysterectomy Psoriasis and similar disorders 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 No colitis. Poor rectal sphincter tone. Referred to [facility]ana Newberry. COLONOSCOPY FLX DX W/COLLJ SPEC WHEN PFRMD 11/29/2011 [facility] /Dr. Anderson COLONOSCOPY FLX DX W/COLLJ SPEC WHEN PFRMD 07/2011 Janneth COLONOSCOPY FLX DX W/COLLJ SPEC WHEN PFRMD 09/2011 Dr. Lagunas [facility] ESOPHAGOGASTRODUODENOSCOPY TRANSORAL DIAGNOSTIC 12/2009 [facility] Janneth ESOPHAGOGASTRODUODENOSCOPY TRANSORAL DIAGNOSTIC 12/2010 [facility] Janneth FISTULA HERNIA REPAIR HX 12/2008 incisional hernia repair LVR ALTRNSPLJ ORTHOTOPIC PRTL/WHL DON ANY AGE 0507/2008 PAST SURGICAL HISTORY OF 1989 left ovary/cyst removal PAST SURGICAL HISTORY OF 1974 all teeth removed SKIN BIOPSY HX TOTAL ABDOMINAL HYSTERECT W/WO RMVL TUBE OVARY 1998 Hysterectomy, FRANSISCA -for endometrial cancer VAGINAL HYSTERECTOMY VASCULAR SURGERY PROCEDURE ALLERGIES Clindamycin, Buspar [Buspirone Hcl], Duricef [Cefadroxil], Keflex [Cephalexin], Lisinopril, Losartan, Naprosyn [Naproxen], Niaspan [Niacin], Sulfa (Sulfonamide Antibiotics), and Unasyn [Ampicillin-Sulbactam] MEDICATIONS insulin aspart U-100 (NOVOLOG U-100 INSULIN ASPART) 100 unit/mL^Inject 22 units before breakfast, 26 units before lunch, and 22 units before dinner as directed. Type 2 diabetes mellitus with microalbuminuria, with long-term current use of insulin ([facility]) - Primary E11.29, R80.9, Z79.4^Disp: 6000 mL^Rfl: 3 colestipol (COLESTID) 1 gram tablet^Take 1 tablet by mouth twice daily.^Disp: 60 tablet^Rfl: 1 gabapentin (NEURONTIN) 100 mg capsule^Take 2 capsules by mouth daily at bedtime for 90 days.^Disp: 60 capsule^Rfl: 2 triamcinolone acetonide (KENALOG) 0.5 % cream^Apply 1 application to affected area twice daily. Apply sparingly to affected area. The flank area b/l where she has rash^Disp: 454 g^Rfl: 0 hydrOXYzine HCl (ATARAX) 25 mg tablet^Take 0.5 tablets by mouth every 6 hours as needed for itching/rash.^Disp: 60 tablet^Rfl: 2 torsemide (DEMADEX) 20 mg tablet^Take 2 tablets by mouth once daily.^Disp: 60 tablet^Rfl: 5 levoFLOXacin (LEVAQUIN) 250 mg tablet^Take 0.5 tablets by mouth once daily. Take 500mg x1 on day one then take 125mg once daily for following 6 days.^Disp: 3 tablet^Rfl: 0 levoFLOXacin (LEVAQUIN) 500 mg tablet^Take 500mg x1 on day one then take 125mg once daily for following 6 days.^Disp: 1 tablet^Rfl: 0 rOPINIRole (REQUIP) 1 mg tablet^Take one tab in the morning and 2 in the evening^Disp: 270 tablet^Rfl: 1 loperamide HCl (LOPERAMIDE ORAL)^Take 4 mg by mouth as needed.^Disp: ^Rfl: albuterol HFA (PROVENTIL HFA, VENTOLIN HFA) 90 mcg/actuation inhaler^^Disp: ^Rfl: dicyclomine (BENTYL) 20 mg tablet^As needed^Disp: ^Rfl: diphenoxylate-atropine (LOMOTIL) 2.5-0.025 mg per tablet^As needed^Disp: ^Rfl: Ascorbic Acid 500 mg chew^Take 500 mg by mouth once daily.^Disp: ^Rfl: traZODone (DESYREL) 100 mg tablet^Take 2 tablets by mouth daily at bedtime.^Disp: 180 tablet^Rfl: 1 blood sugar diagnostic (BLOOD GLUCOSE TEST) test strip^Test blood sugar(s) 5 times daily. Dx: Type 2 DM - Controlled E11.9 Insulin: Yes^Disp: 450 Strip^Rfl: 3 tacrolimus IR (PROGRAF) 0.5 mg capsule^TAKE 1 CAPSULE TWICE DAILY^Disp: 180 capsule^Rfl: 3 Blood-Glucose Transmitter (DEXCOM G6 TRANSMITTER) brady^Apply new transmitter every 90 days. Clean transmitter with an alcohol swab with each sensor change.^Disp: 1 Each^Rfl: 3 Blood-Glucose Meter,Continuous (DEXCOM G6 CHIP BIN OPERATOR) misc^Use to check blood sugar at least four (4) times daily.^Disp: 1 Each^Rfl: 0 Blood-Glucose Sensor (DEXCOM G6 SENSOR) brady^Apply new sensor every ten (10) days to abdomen.^Disp: 9 Each^Rfl: 3 melatonin 5 mg tablet^Take 10 mg by mouth daily at bedtime.^Disp: ^Rfl: Insulin Syringe-Needle U-100 0.5 mL 31 gauge x 5/16 ^Use to inject insulin 5 times daily as directed.^Disp: 450 Each^Rfl: 3 insulin glargine (LANTUS U-100 INSULIN) 100 unit/mL injection^Inject 50 Units subcutaneously twice daily. Via Syringe^Disp: 90 mL^Rfl: 3 clopidogrel (PLAVIX) 75 mg tablet^Take 1 tablet by mouth once daily.^Disp: 90 tablet^Rfl: 3 nitroglycerin sublingual (NITROQUICK) 0.4 mg SL tablet^Dissolve 1 tablet under the tongue every 5 minutes as needed for chest pain.^Disp: 1 Bottle of 25^Rfl: 0 apremilast (OTEZLA) 30 mg tablet^Take 1 tablet by mouth once daily.^Disp: 90 tablet^Rfl: 3 atorvastatin (LIPITOR) 10 mg tablet^Take 1 tablet by mouth once daily.^Disp: 90 tablet^Rfl: 3 carvedilol (COREG) 12.5 mg tablet^Take 1 tablet by mouth twice daily.^Disp: 180 tablet^Rfl: 3 levothyroxine (LEVOXYL) 88 mcg tablet^Take 1 tablet by mouth once daily. Take on empty stomach. For Thyroid^Disp: 90 tablet^Rfl: [address] (PROTONIX) 40 mg tablet^Take 1 tablet by mouth once daily. As needed for upset stomach^Disp: 90 tablet^Rfl: 1 (Patient taking differently: Take 40 mg by mouth twice daily. As needed for upset stomach ) sertraline (ZOLOFT) 50 mg tablet^Take 1 tablet by mouth once daily.^Disp: 90 tablet^Rfl: 3 sevelamer carbonate (RENVELA) 800 mg tablet^Take by mouth. Taking 2 tablet with breakfast, 2 tablet with lunch, and 2 tablets with dinner as directed. ^Disp: ^Rfl: B Complex-Vitamin C-Folic Acid (RENAL VITAMIN) 0.8 mg tab^Take 1 tablet by mouth once daily.^Disp: ^Rfl: Blood-Glucose Meter monitoring kit^Glucose Meter of Choice - Kit - Dx: Type 2 DM - Uncontrolled E11.65 with hypoglycemia Insulin: yes^Disp: 1 Each^Rfl: 0 cholecalciferol (VITAMIN D3) 1,000 unit tab tablet^Take 1,000 Units by mouth twice daily. ^Disp: ^Rfl: vitamin B complex (B COMPLEX-VITAMIN B12 ORAL)^Take 5,000 mcg by mouth once daily.^Disp: ^Rfl: Ascorbic Acid 1,000 mg tablet^Take 1,000 mg by mouth once daily.^Disp: ^Rfl: ACCU-CHEK MULTICLIX LANCET lancets^TEST BLOOD SUGAR 4 TO 5 TIMES DAILY. ^Disp: 510 Each^Rfl: 3 + Nebulizer Supplies^Nebulizer, Mask, & O2 Tubing. Use as directed.^Disp: 1 Each^Rfl: 12 FAMILY HISTORY Problem Relation Age of Onset Cancer Father age 73 lung CA Stroke Father Ischemic Heart Disease Father [place] age 70s Diabetes Mother age 76 other (Dementia) Mother other (CHF) Mother other (Lymphedema) Mother other (renal failure) Mother Psoriasis Brother other (cirrhosis) Brother from aneurysm at age 38 other (psoriasis) Brother Social History Tobacco Use Smoking status: Never Passive exposure: Yes Smokeless tobacco: Never Tobacco comments: Parents both smoked in childhood home. No household ETS since. Vaping Use Vaping Use: Never used Substance Use Topics Alcohol use: No Drug use: No PHYSICAL EXAM BP (!) 98/46 Pulse 86 Temp 37 C (98.6 F) (Temporal) Resp 16 Wt 113.4 kg (250 lb) SpO2 97% BMI 41.60 kg/m General Appearance: appears very tired, in no acute distress, alert Skin: Skin color, texture, turgor normal for age; Eyes: PERRLA, EOM's intact, conjunctiva pink and moist, no icterus, sclera white, non-injected Neck: Thyroid normal size and symmetric without palpable nodules, Neck supple, No adenopathy Lymph nodes: No cervical lymphadenopathy and No supraclavicular lymphadenopathy Lungs: Lungs clear to auscultation. No wheezing, rhonchi, rales. Heart: RRR without murmur, gallop, or rubs. No ectopy Abdomen: Abdomen soft, non-tender. Bowel sounds normal. No masses, organomegaly BUE Extremities: No deformities, edema, skin discoloration, clubbing or cyanosis. Good capillary refill. Neurological: Gait normal.. Sensation intact., Negative findings: speech normal, mental status intact Health maintenance reviewed with patient: DILATED RETINAL EXAM due on 10/20/2021 DEPRESSION ASSESSMENT Never done HPV TESTING due on 03/05/2022 DIABETIC FOOT EXAM due on 03/28/2022 MAMMOGRAM due on 03/30/2022 HBA1C due on 04/22/2022 PAP TESTING due on 08/31/2022 LDL CHOLESTEROL due on 12/11/2022 SERUM CREATININE due on 01/16/2023 HEMOGLOBIN/HEMATOCRIT due on 01/16/2023 ANNUAL PCP TEAM CHRONIC DISEASE VISIT due on 02/05/2023 BP CONTROLLED (<130/80) due on 02/05/2023 PNEUMOCOCCAL(4 - PPSV23 if available, else PCV20) due on 11/07/2025 COLORECTAL CANCER SCREENING due on 09/13/2027 DTAP,TDAP,TD(3 - Td or Tdap) due on 12/31/2028 HEPATITIS B Completed INFLUENZA Completed HEPATITIS C SCREENING Completed HIV SCREENING Completed SHINGRIX VACCINE Completed COVID-19 VACCINE Completed HPV VACCINE Aged Out DATA REVIEWED: Outside chart from [facility] reviewed. ASSESSMENT/PLAN: 1. Type 2 diabetes mellitus with hyperosmolarity 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, with long-term current use of insulin (HCC) - ICD9: 250.20, V58.67, ICD10: E11.00, Z79.4 (primary diagnosis) - control unknown A1c 6.5 but patient hs anemia from CKD and recently with elevated glucose. - Continue current medications - Blood glucose monitoring on a continuous glucose monitoring schedule - HEMOGLOBIN A1C (POC) - CBC + DIFF - COMP METABOLIC PANEL - reschedule with clinical pharmacist 2. End stage kidney disease (HCC) - ICD9: 585.6, ICD10: N18.6 - patient on dialysis. Having concerns of dizziness with low Blood pressures post dialysis. On torsemide and need to contact nephrology to see if we need to consider decreasing this. - continue with dialysis and following with nephrology 3. Dizziness - ICD9: 780.4, ICD10: R42 - occurs with hypotension - see above - checking CBC, CMP, TSH, T3 T4 to evaluate for other etiology 4. Hypotension, unspecified hypotension type - ICD9: 458.9, ICD10: I95.9 See #2 5. Other fatigue - ICD9: 780.79, ICD10: R53.83 - from chronic 6. Acquired hypothyroidism - ICD9: 244.9, ICD10: E03.9 - TSH BLD - T3 BLD - T4 FREE/FREE THYROX 7. Chronic diarrhea - ICD9: 787.91, ICD10: K52.9 - cbc and cmp - will evaluate for other option to take for diarrhea as the concern is this will increase her symptoms and lower her BP even more - CONSULT TO GASTROENTEROLOGY 8. Liver replaced by transplant (HCC) - ICD9: V42.7, ICD10: Z94.4 - continue with upcoming appointment with transplant team - CBC + DIFF - COMP METABOLIC PANEL Prescription instructions reviewed with patient as applicable. Potential red flag symptoms discussed with the patient. Reviewed appropriate action plan to take if red flag symptoms occur. Patient agreeable to treatment plan. Silva Plasencia APRN.CNP documented in this encounter [facility] 04-24-2022 Miscellaneous Notes Called and spoke with patient regarding kidney transplant, intake completed, and to nurse coordinator for review. Haritha Rocio Pre- transplant intake form Date: 04/24/2022 Spoke with: Patient : 1955 EMAIL: [employer] Jonnie M/F: F Work Status: Not working; Disabled Race: W Marital Status: Ht/Wt: BMI: 5' 4 1/2 246 Lbs; BMI = 42 Weight loss without trying? No Decreased Appetite? No Nutrition = 0 Assistive devices? Electric scooter and Rolator Activity Level? Sedentary Smoking? Never O2? COPD/Emphysema? Yes - at dialysis only; Yes-COPD, uses inhaler; No Emphysema Transfusions, Willing to accept? Yes Dialysis? [facility] Days? Start date? 10/18/2020 Referring doctor? RICKI DC [place]? Pap? Yes - 2021 Yes- 2021 Colonoscopy? Yes - 2 yrs ago (Approx) Previous Transplant? Yes Date/Where at? 05/05/2008 at [facility] Nephrectomy? No Evaluation elsewhere? Listed? Yes at [facility]; No Kidney Biopsy? Liver Biopsy? No Yes - on txp at [facility] Cirrhosis? Hepatitis? HIV? Cancer? Yes - [place] before Txp No No Yes-1998 Uterus and Cervix; had full hysterectomy; No chemo or radiation Diabetes 1 or 2? 2 Age diagnosed? 2007 Insulin dependent? Yes Hypoglycemic unawareness? No Hypertension? CAD? ME? CABG/STENTS? Yes No No Yes - Hrt Stents 3x - in 2021 at [facility]. Stress? Echo? Cath? Yes Yes Yes DVT/PE? No CVA/TIA? No Lupus? NoSickle/Trait? No Blood thinner? Yes - Plavix ETOH? Drug use? Psych disorder? No No Yes-Depression Prior Surgeries? Gallbladder and Appendix removed; Left Knee Sx; Fistula in Left Arm Living Donors? No Called Christina Guerrier without success regarding referral-Kidney Transplant. Voicemail message was left for patient to call our office. Haritha Chan documented in this encounter [facility] 04-20-2022 Note [facility] 04-20-2022 History of Present illness Narrative INSIGHT CDM TELEPHONIC OUTREACH Provider Action/FYI: ED outside [facility] recenty Pain in shoulder during dialysis Sent to ED via ambulance EKG in squad ok, CXR ok Patient notes she had a fall prior to that and ED thought she was just having pain from the fall/bruising. Dry weight changed to 110kg instead of 109 due to thought of taking too much fluid off causing lightheadedness which led to fall ED also thought perhaps the dialysis needle in her arm may have caused the pain up in her shoulder with positioning. Patient also mentions she will be pursuing getting on the transplant list with [facility] for a kidney transplant Contact made with patient: Yes Patient identified by name and . Discussed care with patient It s nice talking to you again. As a reminder, this is our monthly check-in where I will be asking you questions about your health. This will only take a few minutes of your time. Is this a good time? Yes Symptoms What Chronic Disease(s) does the patient have: CKD Do you check your blood pressures at home? No-done at dialysis Do you have new or worse shortness of breath with activity? No Do you feel like you are dehydrated for any reason, including not being able to eat or drink normally, or having less urine/much darker urine than normal for you? No Do you check your daily weight at home? No - done at dialysis Are you having any other symptoms that your PCP needs to know about? No NOELLE Education Ordered -: No The patient required an escalation for symptom(s)? No Medications Do you have any questions about taking your medication or which medications you should be on? No Do you need any medication refills at this time, including any of the medications you might take only when needed? No Social We would like to make sure you have what you need so that your basic needs are met- including your personal safety, food, housing, transportation and medications? Would you like to speak with a social work steamer blocker to help give you support for any of these needs? No It can be normal to feel anxious or down during a time like this. Would you like to talk to a mental health professional about how you have been feeling? No Closing Thank you for taking the time to talk with me today. We want to work with you to ensure that we are keeping your medical condition(s) well-controlled and to keep you healthy and out of the doctor's office or hospital. It s also not too late for me to sign you up for automated weekly questionnaires through [employer]. This is an easy way for us to stay connected each week. Are you interested? No, I understand. We can always sign you up in the future if you change your mind. Just as a reminder, will continue to call you every other week to check in on your health. Our calls should take 10-15 minutes or less. Remember, if you have concerns in between our calls, please call your PCP's office right away. Thank you. Enter next patient outreach date in the Track Pt Outreach and End outreach. documented in this encounter [facility] 04-19-2022 Note [facility] 04-19-2022 History of Present illness Narrative INSIGHT CDM TELEPHONIC OUTREACH Provider Action/FYI: voicemail Contact made with patient: No - Left message Hello my name is Roxie Palmer RN your Model And Dye Person from the [facility] I am calling today for your monthly check in. I am sorry I missed your call. I will reach out to you again tomorrow. Enter next patient outreach date using the Track Pt Outreach. End outreach. documented in this encounter [facility] 04-19-2022 Miscellaneous Notes Patient has been identified by name and date of : Yes Patient phones for refill(s): Requested Prescriptions Pending Prescriptions Disp Refills insulin aspart U-100 (NOVOLOG U-100 INSULIN ASPART) 100 unit/mL 0 Sig: Inject 22 units before breakfast, 26 units before lunch, and 22 units before dinner as directed. Type 2 diabetes mellitus with microalbuminuria, with long-term current use of insulin ([facility]) - Primary E11.29, R80.9, Z79.4 Date of last office visit in primary care: 09/07/2021 Please advise. Thank you. Beth Pedersen LPN documented in this encounter [facility] 03-22-2022 Note [facility] 03-22-2022 Note [facility] 03-19-2022 Miscellaneous Notes Patient has been identified by name and date of : No Patient phones for refill(s): Requested Prescriptions Pending Prescriptions Disp Refills colestipol (COLESTID) 1 gram tablet 60 tablet 1 Sig: Take 1 tablet by mouth twice daily. Date of last office visit in primary care: 02/05/2022 Last 2 Encounter Wt Readings: Date: Wt: 02/05/2022 110.2 kg (243 lb) 01/01/2022 112 kg (247 lb) Previous labs/tests for medication: Not applicable Please advise. Thank you. Franic Quinn LPN documented in this encounter [facility] 02-22-2022 History of Present illness Narrative INSIGHT CDM TELEPHONIC OUTREACH Provider Action/FYI: Returned call Doing well, no new concerns BP drops during dialysis but she does not take her BP meds that morning and her BP remains stable throughout Contact made with patient: Yes Patient identified by name and . Discussed care with patient It s nice talking to you again. As a reminder, this is our monthly check-in where I will be asking you questions about your health. This will only take a few minutes of your time. Is this a good time? Yes Symptoms What Chronic Disease(s) does the patient have: CKD Do you check your blood pressures at home? No-at dialysis Do you have new or worse shortness of breath with activity? No Do you feel like you are dehydrated for any reason, including not being able to eat or drink normally, or having less urine/much darker urine than normal for you? No Do you check your daily weight at home? No - at dialysis Are you having any other symptoms that your PCP needs to know about? No Symptom Escalation The patient required an escalation for symptom(s)? No Medications Do you have any questions about taking your medication or which medications you should be on? No Do you need any medication refills at this time, including any of the medications you might take only when needed? No Social We would like to make sure you have what you need so that your basic needs are met- including your personal safety, food, housing and medications? Would you like to speak with a social work steamer blocker to help give you support for any of these needs? No It can be normal to feel anxious or down during a time like this. Would you like to talk to a mental health professional about how you have been feeling? No Closing Thank you for taking the time to talk with me today. We want to work with you to ensure that we are keeping your medical condition(s) well-controlled and to keep you healthy and out of the doctor's office or hospital. It s also not too late for me to sign you up for automated weekly questionnaires through [employer]. This is an easy way for us to stay connected each week. Are you interested? No, I understand. We can always sign you up in the future if you change your mind. Just as a reminder, will continue to call you every other week to check in on your health. Our calls should take 10-15 minutes or less. Remember, if you have concerns in between our calls, please call your PCP's office right away. Thank you. Enter next patient outreach date in the Track Pt Outreach and End outreach. INSIGHT CD TELEPHONIC OUTREACH Provider Action/FYI: voicemail Contact made with patient: No - Left message Tierney my name is Roxie Palmer RN your Model And Dye Person from the [facility] I am calling today for your monthly check in. I am sorry I missed your call. I will reach out to you again tomorrow. Enter next patient outreach date for the following business day using the Track Pt Outreach. End outreach. documented in this encounter [facility] 02-09-2022 Miscellaneous Notes Patient went to ED for this. I would say increase the colestipol to 3 times a day Regards, Jame Hunt MD Patient calls to let provider know that she hasn't gotten any relief from the triamcinolone, gabapentin, and hydroxyzine ordered for severe itch to back. Patient continues to take benadryl prn as well. Patient asking what else she can do for itch. Please review and advise, Janelle Crocker RN documented in this encounter [facility] 02-05-2022 Miscellaneous Notes Patient came into office for OV and was treated. Franci Quinn LPN Christina Guerrier is calling Jame Hunt MD today with concern regarding chronic itching on her back, no rash; OTC creams not helping; she is at dialysis and they even gave her Benadryl and nothing is helping. Please call her. Patient has been identified by name and birthdate. Duration of symptoms: N/A Person calling: self Call patient at: on cell [phone] (home) [phone] (cell) Was an appointment scheduled: No Closing statement: Symptom Call: Thank you for calling [facility], your call is very important. A nurse will call in approximately 2-4 hours during business hours. If this is an emergency, please contact 911. Aleyda Cary documented in this encounter [facility] 02-05-2022 History of Present illness Narrative Reason for Visit Patient presents with: Same Day Appointment: possible shingles x 3 weeks Christina Guerrier is a 66 year old female who presents here today for Above Complaints.. Health Maintenance BP CONTROLLED (<130/80) DEPRESSION ASSESSMENT DILATED RETINAL EXAM HPV TESTING MAMMOGRAM HPI Patient notes for the past 3 weeks, since she took her shingles shot she has been having trouble itching. The itching is mostly in the back. The upper and lower back. Some it is in the flank are more itchy than the others. There is no pain, rash, tingling or numbness just this severe rash. She has been taking hydroxyzine half tablet and that is not helping her she is also being taking Benadryl which did not help her. Has applied hydrocortisone cream on the back and that did not help her. She is just coming from dialysis today. Recent cmp was normal. She continues to be mildly anemic. No problem-specific Assessment & Plan notes found for this encounter. PAST MEDICAL HISTORY Diagnosis Date Abdominal pain 12/21/2014 Diffuse abdominal pain x 6 days Worsened with palpation on LLQ and epigastric No diarrhea no vomiting no alcohol drink no sick contact no change in stool no melena Ddx: viral GI vs any intraabdominal pathology or infection in a setting of immunosuppressed patient Plan CT abd wo Levin culture Acute renal failure superimposed on stage 4 chronic kidney disease (HCC) 01/02/2020 Anemia Anemia in stage 4 chronic kidney disease (HCC) 12/17/2016 Anemia of chronic kidney failure, stage 4 (severe) (HCC) 12/11/2016 Anxiety Arthritis Krueger's palsy CAD (coronary artery disease) Cancer (HCC) uterine and cervical Celiac disease 2007 Cellulitis of back except buttock Cirrhosis of liver without mention of alcohol CKD (chronic kidney disease) Dialysis M/W/F [facility] COPD (chronic obstructive pulmonary disease) (HCC) Diabetes mellitus without mention of complication Diabetic polyneuropathy (HCC) 02/04/2017 Disorder of thyroid DVT (deep venous thrombosis) (HCC) Esophageal reflux Hammer toes, bilateral 11/30/2016 History of transfusion Hypertension Incisional hernia 12/30/2008 Liver replaced by transplant (HCC) 2008 - Cirrhosis s/p OLT 2008 - Cirrhosis 04/05 [facility] Plan: - Continue Tacrolimus 1.5 mg BID - daily Tacrolimus levels - Continue Otezla 30 mg BID Lymphedema RAUL (obstructive sleep apnea) does not use CPAP Other and unspecified hyperlipidemia Other lymphedema runs in family PMH - PAST MEDICAL HISTORY OF 1998 endometrial cancer, had complete hysterectomy Psoriasis and similar disorders 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 No colitis. Poor rectal sphincter tone. Referred to [facility]. COLONOSCOPY FLX DX W/COLLJ SPEC WHEN PFRMD 11/29/2011 [facility] /Dr. Anderson COLONOSCOPY FLX DX W/COLLJ SPEC WHEN PFRMD 07/2011 [facility] COLONOSCOPY FLX DX W/COLLJ SPEC WHEN PFRMD 09/2011 Dr. Lagunas [facility] ESOPHAGOGASTRODUODENOSCOPY TRANSORAL DIAGNOSTIC 12/2009 [facility] Janneth ESOPHAGOGASTRODUODENOSCOPY TRANSORAL DIAGNOSTIC 12/2010 [facility] Janneth FISTULA HERNIA REPAIR HX 12/2008 incisional hernia repair LVR ALTRNSPLJ ORTHOTOPIC PRTL/WHL DON ANY AGE 0507/2008 PAST SURGICAL HISTORY OF 1989 left ovary/cyst removal PAST SURGICAL HISTORY OF 1974 all teeth removed SKIN BIOPSY HX TOTAL ABDOMINAL HYSTERECT W/WO RMVL TUBE OVARY 1998 Hysterectomy, FRANSISCA -for endometrial cancer VAGINAL HYSTERECTOMY VASCULAR SURGERY PROCEDURE FAMILY HISTORY Problem Relation Age of Onset Cancer Father age 73 lung CA Stroke Father Ischemic Heart Disease Father [place] age 70s Diabetes Mother age 76 other (Dementia) Mother other (CHF) Mother other (Lymphedema) Mother other (renal failure) Mother Psoriasis Brother other (cirrhosis) Brother from aneurysm at age 38 other (psoriasis) Brother Social History Tobacco Use Smoking status: Never Passive exposure: Yes Smokeless tobacco: Never Tobacco comments: Parents both smoked in childhood home. No household ETS since. Vaping Use Vaping Use: Never used Substance Use Topics Alcohol use: No Drug use: No Past medical history, appointments, medications, allergies reviewed. Pertinent Lab/Diagnostic Studies are reviewed and discussed today Current Outpatient Medications: hydrOXYzine HCl (ATARAX) 25 mg tablet HYDROcodone-Acetaminophen (NORCO) 7.5-325 mg per tablet torsemide (DEMADEX) 20 mg tablet colestipol (COLESTID) 1 gram tablet levoFLOXacin (LEVAQUIN) 250 mg tablet levoFLOXacin (LEVAQUIN) 500 mg tablet rOPINIRole (REQUIP) 1 mg tablet loperamide HCl (LOPERAMIDE ORAL) albuterol HFA (PROVENTIL HFA, VENTOLIN HFA) 90 mcg/actuation inhaler dicyclomine (BENTYL) 20 mg tablet diphenoxylate-atropine (LOMOTIL) 2.5-0.025 mg per tablet Ascorbic Acid 500 mg chew traZODone (DESYREL) 100 mg tablet insulin aspart U-100 (NOVOLOG U-100 INSULIN ASPART) 100 unit/mL blood sugar diagnostic (BLOOD GLUCOSE TEST) test strip tacrolimus IR (PROGRAF) 0.5 mg capsule Blood-Glucose Transmitter (DEXCOM G6 TRANSMITTER) brady Blood-Glucose Meter,Continuous (DEXCOM G6 CHIP BIN OPERATOR) [facility] Blood-Glucose Sensor (DEXCOM G6 SENSOR) brady triamcinolone acetonide (KENALOG) 0.1 % ointment melatonin 5 mg tablet Insulin Syringe-Needle U-100 0.5 mL 31 gauge x 5/16 insulin glargine (LANTUS U-100 INSULIN) 100 unit/mL injection clopidogrel (PLAVIX) 75 mg tablet nitroglycerin sublingual (NITROQUICK) 0.4 mg SL tablet apremilast (OTEZLA) 30 mg tablet atorvastatin (LIPITOR) 10 mg tablet carvedilol (COREG) 12.5 mg tablet levothyroxine (LEVOXYL) [address] (PROTONIX) 40 mg tablet sertraline (ZOLOFT) 50 mg tablet sevelamer carbonate (RENVELA) 800 mg tablet B Complex-Vitamin C-Folic Acid (RENAL VITAMIN) 0.8 mg tab Blood-Glucose Meter monitoring kit cholecalciferol (VITAMIN D3) 1,000 unit tab tablet vitamin B complex (B COMPLEX-VITAMIN B12 ORAL) Ascorbic Acid 1,000 mg tablet ACCU-CHEK MULTICLIX LANCET lancets + Nebulizer Supplies Current Facility-Administered Medications: perflutren lipid microspheres 1.3 mL in NaCl (PF) 0.9% 10 mL injection (DEFINITY) sodium chloride 0.9 % (flush) 10 mL (BD POSIFLUSH) Review of Systems CONSTITUTIONAL: No fevers, chills night sweats, unintended weight loss CARDIOVASCULAR: No chest pain, dyspnea, palpitations, orthopnea, PND, ankle edema. PULM: No dyspnea, unexplained cough. GI: No dysphagia/odynophagia, problematic reflux, constipation, diarrhea, changes in stool habits, hematochezia, melena. : No new urinary complaints, including dysuria, gross hematuria or pyuria. NEURO: No new balance problems, peripheral weakness/paresthesias or numbness of concern. Physical Exam BP 110/50 (BP Site: Right Arm, BP Position: Sitting, BP Cuff Size: Large Adult) Pulse 89 Temp 36.9 C (98.5 F) Resp 18 Ht 165.1 cm (5' 5 ) Wt 110.2 kg (243 lb) SpO2 96% BMI 40.44 kg/m General appearance: Well appearing, alert, in no acute distress, well nourished. Skin: Some area of dermatitis in the left lower flank area posterior. There are scratches and jules of small pinpoint rashes. Chest: normal Heart normal ASSESSMENT/PLAN: 1. Dermatitis - ICD9: 692.9, ICD10: L30.9 (primary diagnosis) - discussed skin care of rash - follow up if symptoms persist or worsen. - TRIAMCINOLONE ACETONIDE 0.5 % TOPICAL CREAM 2. Itching - ICD9: 698.9, ICD10: L29.9 Take half a pill or 12.5 mgs of atarax a couple times as needed. - GABAPENTIN 100 MG CAPSULE Jame Hunt MD documented in this encounter [facility] 02-01-2022 Miscellaneous Notes Pt notified and voiced understanding. Marilee Telles MA Please let patient know I have ordered this, but with her kidney function and dialysis she should be on half the normal dose. I have ordered as such. Thank you Silva Plasencia APRN.NATHALY Patient calling asking for a refill of hydroxyzine. This medication is not listed on her current medication list. Patient uses pharmacy on file. Please advise. documented in this encounter [facility] 01-29-2022 History of Present illness Narrative CC: Patient presents with: Recheck: Follow up HPI Christina Guerrier is a 66 year old female who presents today for follow up on diarrhea. Diarrhea found to be caused by a protein shake. Does not have diarrhea if she does not drink the protein shake. Denies abdominal pain, nausea, or vomiting. Has noticed bilateral hand pain that is intermittent and sharp. Left hand has been for the past year and currently is not as irritating at this time. Right hand has been worsening on and off for the last few months. Pain is located to below thumb and radiating to wrist. Pain can get intense to the point she drops things. Has tried tylenol and diclofenac gel without any help. [place] helps when pain is severe. Denies injury edema redness weakness or new numbness. (Has chronic numbness to her fingertips. ) REVIEW OF SYSTEMS General: no fevers, no chills, no night sweats, no recurrent infections, no change in appetite, no change in energy, and no significant changes in weight Respiratory: no cough, no wheezing, no shortness of breath, no hemoptysis Cardiovascular: no chest pain, no chest pressure, no palpitations, and no swelling GI: No nausea, vomiting, or diarrhea Neurologic: No headache, weakness, numbness, tingling, neck stiffness, tremor, vertigo, dizziness, memory loss, syncope. PAST MEDICAL HISTORY Diagnosis Date Abdominal pain 12/21/2014 Diffuse abdominal pain x 6 days Worsened with palpation on LLQ and epigastric No diarrhea no vomiting no alcohol drink no sick contact no change in stool no melena Ddx: viral GI vs any intraabdominal pathology or infection in a setting of immunosuppressed patient Plan CT abd wo Levin culture Acute renal failure superimposed on stage 4 chronic kidney disease (HCC) 01/02/2020 Anemia Anemia in stage 4 chronic kidney disease (HCC) 12/17/2016 Anemia of chronic kidney failure, stage 4 (severe) (HCC) 12/11/2016 Anxiety Arthritis Krueger's palsy CAD (coronary artery disease) Cancer (HCC) uterine and cervical Celiac disease 2007 Cellulitis of back except buttock Cirrhosis of liver without mention of alcohol CKD (chronic kidney disease) Dialysis M/W/F [facility] COPD (chronic obstructive pulmonary disease) (HCC) Diabetes mellitus without mention of complication Diabetic polyneuropathy (HCC) 02/04/2017 Disorder of thyroid DVT (deep venous thrombosis) (HCC) Esophageal reflux Hammer toes, bilateral 11/30/2016 History of transfusion Hypertension Incisional hernia 12/30/2008 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 Plan: - Continue Tacrolimus 1.5 mg BID - daily Tacrolimus levels - Continue Otezla 30 mg BID Lymphedema RAUL (obstructive sleep apnea) does not use CPAP Other and unspecified hyperlipidemia Other lymphedema runs in family PMH - PAST MEDICAL HISTORY OF 1999 endometrial cancer, had complete hysterectomy Psoriasis and similar disorders [place]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 No colitis. Poor rectal sphincter tone. Referred to Oriana Newberry. COLONOSCOPY FLX DX W/COLLJ SPEC WHEN PFRMD 11/29/2011 [facility] /Dr. Anderson COLONOSCOPY FLX DX W/COLLJ SPEC WHEN PFRMD 07/2011 Janneth COLONOSCOPY FLX DX W/COLLJ SPEC WHEN PFRMD 09/2011 Dr. Lagunas [facility] ESOPHAGOGASTRODUODENOSCOPY TRANSORAL DIAGNOSTIC 12/2009 [facility] Janneth ESOPHAGOGASTRODUODENOSCOPY TRANSORAL DIAGNOSTIC 12/2010 [facility] Janneth FISTULA HERNIA REPAIR HX 12/2008 incisional hernia repair LVR ALTRNSPLJ ORTHOTOPIC PRTL/WHL DON ANY AGE 0507/2008 PAST SURGICAL HISTORY OF 1989 left ovary/cyst removal PAST SURGICAL HISTORY OF 1974 all teeth removed SKIN BIOPSY HX TOTAL ABDOMINAL HYSTERECT W/WO RMVL TUBE OVARY 1998 Hysterectomy, FRANSISCA -for endometrial cancer VAGINAL HYSTERECTOMY VASCULAR SURGERY PROCEDURE ALLERGIES Clindamycin, Buspar [Buspirone Hcl], Duricef [Cefadroxil], Keflex [Cephalexin], Lisinopril, Losartan, Naprosyn [Naproxen], Niaspan [Niacin], Sulfa (Sulfonamide Antibiotics), and Unasyn [Ampicillin-Sulbactam] MEDICATIONS torsemide (DEMADEX) 20 mg tablet^Take 2 tablets by mouth once daily.^Disp: 60 tablet^Rfl: 5 colestipol (COLESTID) 1 gram tablet^Take 1 tablet by mouth twice daily.^Disp: 60 tablet^Rfl: 1 levoFLOXacin (LEVAQUIN) 250 mg tablet^Take 0.5 tablets by mouth once daily. Take 500mg x1 on day one then take 125mg once daily for following 6 days.^Disp: 3 tablet^Rfl: 0 levoFLOXacin (LEVAQUIN) 500 mg tablet^Take 500mg x1 on day one then take 125mg once daily for following 6 days.^Disp: 1 tablet^Rfl: 0 rOPINIRole (REQUIP) 1 mg tablet^Take one tab in the morning and 2 in the evening^Disp: 270 tablet^Rfl: 1 loperamide HCl (LOPERAMIDE ORAL)^Take 4 mg by mouth as needed.^Disp: ^Rfl: albuterol HFA (PROVENTIL HFA, VENTOLIN HFA) 90 mcg/actuation inhaler^^Disp: ^Rfl: dicyclomine (BENTYL) 20 mg tablet^As needed^Disp: ^Rfl: diphenoxylate-atropine (LOMOTIL) 2.5-0.025 mg per tablet^As needed^Disp: ^Rfl: Ascorbic Acid 500 mg chew^Take 500 mg by mouth once daily.^Disp: ^Rfl: traZODone (DESYREL) 100 mg tablet^Take 2 tablets by mouth daily at bedtime.^Disp: 180 tablet^Rfl: 1 insulin aspart U-100 (NOVOLOG U-100 INSULIN ASPART) 100 unit/mL^Inject 22 units before breakfast, 26 units before lunch, and 22 units before dinner as directed. Type 2 diabetes mellitus with microalbuminuria, with long-term current use of insulin ([facility]) - Primary E11.29, R80.9, Z79.4^Disp: ^Rfl: 0 blood sugar diagnostic (BLOOD GLUCOSE TEST) test strip^Test blood sugar(s) 5 times daily. Dx: Type 2 DM - Controlled E11.9 Insulin: Yes^Disp: 450 Strip^Rfl: 3 tacrolimus IR (PROGRAF) 0.5 mg capsule^TAKE 1 CAPSULE TWICE DAILY^Disp: 180 capsule^Rfl: 3 Blood-Glucose Transmitter (DEXCOM G6 TRANSMITTER) brady^Apply new transmitter every 90 days. Clean transmitter with an alcohol swab with each sensor change.^Disp: 1 Each^Rfl: 3 Blood-Glucose Meter,Continuous (DEXCOM G6 CHIP BIN OPERATOR) misc^Use to check blood sugar at least four (4) times daily.^Disp: 1 Each^Rfl: 0 Blood-Glucose Sensor (DEXCOM G6 SENSOR) brady^Apply new sensor every ten (10) days to abdomen.^Disp: 9 Each^Rfl: 3 triamcinolone acetonide (KENALOG) 0.1 % ointment^Apply to affected area twice daily.^Disp: ^Rfl: melatonin 5 mg tablet^Take 10 mg by mouth daily at bedtime.^Disp: ^Rfl: Insulin Syringe-Needle U-100 0.5 mL 31 gauge x 5/16 ^Use to inject insulin 5 times daily as directed.^Disp: 450 Each^Rfl: 3 insulin glargine (LANTUS U-100 INSULIN) 100 unit/mL injection^Inject 50 Units subcutaneously twice daily. Via Syringe^Disp: 90 mL^Rfl: 3 clopidogrel (PLAVIX) 75 mg tablet^Take 1 tablet by mouth once daily.^Disp: 90 tablet^Rfl: 3 nitroglycerin sublingual (NITROQUICK) 0.4 mg SL tablet^Dissolve 1 tablet under the tongue every 5 minutes as needed for chest pain.^Disp: 1 Bottle of 25^Rfl: 0 apremilast (OTEZLA) 30 mg tablet^Take 1 tablet by mouth once daily.^Disp: 90 tablet^Rfl: 3 atorvastatin (LIPITOR) 10 mg tablet^Take 1 tablet by mouth once daily.^Disp: 90 tablet^Rfl: 3 carvedilol (COREG) 12.5 mg tablet^Take 1 tablet by mouth twice daily.^Disp: 180 tablet^Rfl: 3 levothyroxine (LEVOXYL) 88 mcg tablet^Take 1 tablet by mouth once daily. Take on empty stomach. For Thyroid^Disp: 90 tablet^Rfl: [address] (PROTONIX) 40 mg tablet^Take 1 tablet by mouth once daily. As needed for upset stomach^Disp: 90 tablet^Rfl: 1 (Patient taking differently: Take 40 mg by mouth twice daily. As needed for upset stomach ) sertraline (ZOLOFT) 50 mg tablet^Take 1 tablet by mouth once daily.^Disp: 90 tablet^Rfl: 3 sevelamer carbonate (RENVELA) 800 mg tablet^Take by mouth. Taking 2 tablet with breakfast, 2 tablet with lunch, and 2 tablets with dinner as directed. ^Disp: ^Rfl: B Complex-Vitamin C-Folic Acid (RENAL VITAMIN) 0.8 mg tab^Take 1 tablet by mouth once daily.^Disp: ^Rfl: Blood-Glucose Meter monitoring kit^Glucose Meter of Choice - Kit - Dx: Type 2 DM - Uncontrolled E11.65 with hypoglycemia Insulin: yes^Disp: 1 Each^Rfl: 0 cholecalciferol (VITAMIN D3) 1,000 unit tab tablet^Take 1,000 Units by mouth twice daily. ^Disp: ^Rfl: vitamin B complex (B COMPLEX-VITAMIN B12 ORAL)^Take 5,000 mcg by mouth once daily.^Disp: ^Rfl: Ascorbic Acid 1,000 mg tablet^Take 1,000 mg by mouth once daily.^Disp: ^Rfl: ACCU-CHEK MULTICLIX LANCET lancets^TEST BLOOD SUGAR 4 TO 5 TIMES DAILY. ^Disp: 510 Each^Rfl: 3 + Nebulizer Supplies^Nebulizer, Mask, & O2 Tubing. Use as directed.^Disp: 1 Each^Rfl: 12 FAMILY HISTORY Problem Relation Age of Onset Cancer Father age 73 lung CA Stroke Father Ischemic Heart Disease Father [place] age 70s Diabetes Mother age 76 other (Dementia) Mother other (CHF) Mother other (Lymphedema) Mother other (renal failure) Mother Psoriasis Brother other (cirrhosis) Brother from aneurysm at age 38 other (psoriasis) Brother Social History Tobacco Use Smoking status: Passive Smoke Exposure - Never Smoker Smokeless tobacco: Never Tobacco comments: Parents both smoked in childhood home. No household ETS since. Vaping Use Vaping Use: Never used Substance Use Topics Alcohol use: No Drug use: No PHYSICAL EXAM BP 140/68 Pulse 84 Temp 37.1 C (98.8 F) (Temporal) SpO2 98% General Appearance: well appearing, in no acute distress, alert Lungs: Lungs clear to auscultation. No wheezing, rhonchi, rales. Heart: RRR without murmur, gallop, or rubs. No ectopy BUE Extremities: No deformities, edema, skin discoloration, clubbing or cyanosis. Good capillary refill. Musculoskeletal: no edema tenderness or redness. Muscle strength 5/5 to bilateral hands and sensation intact. Positive Finekelstein test to right side Health maintenance reviewed with patient: BP CONTROLLED (<130/80) Never done DEPRESSION ASSESSMENT Never done DILATED RETINAL EXAM due on 10/20/2021 HPV TESTING due on 03/05/2022 MAMMOGRAM due on 03/30/2022 PAP TESTING due on 08/31/2022 DIABETIC FOOT EXAM due on 03/28/2022 HBA1C due on 04/22/2022 LDL CHOLESTEROL due on 12/11/2022 ANNUAL PCP TEAM CHRONIC DISEASE VISIT due on 01/01/2023 SERUM CREATININE due on 01/16/2023 HEMOGLOBIN/HEMATOCRIT due on 01/16/2023 PNEUMOCOCCAL(4 - PPSV23 if available, else PCV20) due on 11/07/2025 COLORECTAL CANCER SCREENING due on 09/13/2027 DTAP,TDAP,TD(3 - Td or Tdap) due on 12/31/2028 HEPATITIS B Completed INFLUENZA Completed HEPATITIS C SCREENING Completed HIV SCREENING Completed SHINGRIX VACCINE Completed COVID-19 VACCINE Completed HPV VACCINE Aged Out DATA REVIEWED: Most recent labs ASSESSMENT/PLAN: 1. Diarrhea, unspecified type - ICD9: 787.91, ICD10: R19.7 (primary diagnosis) Resolved with stopping protein shakes - follow up if this returns 2. 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 Wants to try to let hand rest and use ice and heat. Discussed if this continues or at anytime worsens, we really need to send her to orthopedics. - xray a few months ago showing osteoarthrosis - HYDROCODONE 7.5 MG-ACETAMINOPHEN 325 MG TABLET PDMP website checked and validated. All prescriptions have been APPROPRIATELY filled. No suspicious activity was identified. 01/29/2022 by Silva Plasencia APRN.CNP Prescription instructions reviewed with patient as applicable. Potential red flag symptoms discussed with the patient. Reviewed appropriate action plan to take if red flag symptoms occur. Patient agreeable to treatment plan. Silva Plasencia APRN.CNP documented in this encounter [facility] 01-26-2022 History of Present illness Narrative INSIGHT CDM TELEPHONIC OUTREACH Provider Action/FYI: Cramping in her hands happens frequently-no difference in dialysis days or non-dialysis days Sometimes hard to hand picker a jug of milk Using arthritis cream at night Will discuss at her OV on Saturday No other needs or concerns at this time Contact made with patient: Yes Patient identified by name and . Discussed care with patient It s nice talking to you again. As a reminder, this is our bi-weekly check-in where I will be asking you questions about your health. This will only take a few minutes of your time. Is this a good time? Yes Symptoms What Chronic Disease(s) does the patient have: CKD Do you check your blood pressures at home? No-only at dialysis Do you have new or worse shortness of breath with activity? No Do you feel like you are dehydrated for any reason, including not being able to eat or drink normally, or having less urine/much darker urine than normal for you? No Do you check your daily weight at home? No - only at dialysis Are you having any other symptoms that your PCP needs to know about? No Symptom Escalation The patient required an escalation for symptom(s)? No Medications Do you have any questions about taking your medication or which medications you should be on? No Do you need any medication refills at this time, including any of the medications you might take only when needed? No Social We would like to make sure you have what you need so that your basic needs are met- including your personal safety, food, housing and medications? Would you like to speak with a social work steamer blocker to help give you support for any of these needs? No It can be normal to feel anxious or down during a time like this. Would you like to talk to a mental health professional about how you have been feeling? No Closing Thank you for taking the time to talk with me today. We want to work with you to ensure that we are keeping your medical condition(s) well-controlled and to keep you healthy and out of the doctor's office or hospital. It s also not too late for me to sign you up for automated weekly questionnaires through [employer]. This is an easy way for us to stay connected each week. Are you interested? No, I understand. We can always sign you up in the future if you change your mind. Just as a reminder, will continue to call you every other week to check in on your health. Our calls should take 10-15 minutes or less. Remember, if you have concerns in between our calls, please call your PCP's office right away. Thank you. Enter next patient outreach date for two weeks on the same day of the week as today in the Track Pt Outreach and End outreach. documented in this encounter [facility] 01-24-2022 Miscellaneous Notes Patient called to request the medication again. Remedios--01/01/22 Nov--01/29/22 Last refill--10/20/21 60 with 2 refills Last labs--01/16/22 documented in this encounter [facility] 01-01-2022 History of Present illness Narrative INSIGHT CDM TELEPHONIC OUTREACH Provider Action/FYI: 2nd attempt, left another message Contact made with patient: No - Left message Hello my name is Roxie Palmer RN your Model And Dye Person from the [facility] I am calling today for your monthly check in. I am sorry I missed your call. I will reach out to you again next month. End outreach. documented in this encounter [facility] 01-01-2022 History of Present illness Narrative CC: Patient presents with: Recheck: 3 month follow up HPI Christina Guerrier is a 66 year old female who presents today for follow up on diarrhea. While on Levaquin she did not have diarrhea, but once it was completed it started again. Since stopping the Levaquin has had diarrhea every day except twice. Uses imodium twice a day which she feels does not help. . Sometimes will have liquid diarrhea every half an hour. Sometimes has incontinence of stool because of her urgency and frequency. States it is a medium brown liquid. Has more episodes of this on days she has dialysis. Denies fever, abdominal pain, nausea, or vomiting. Is scheduled to see gastroenterology in March but is on a call list in case of last minute openings. REVIEW OF SYSTEMS General: no fevers, no chills, no night sweats, no recurrent infections, no change in appetite, no change in energy, and no significant changes in weight Respiratory: no cough, no wheezing, no change in chronic shortness of breath, no hemoptysis Cardiovascular: no chest pain, no chest pressure, no palpitations, and no swelling GI: See HPI Neurologic: No headache, weakness, dizziness, memory loss, syncope. PAST MEDICAL HISTORY Diagnosis Date Abdominal pain 12/21/2014 Diffuse abdominal pain x 6 days Worsened with palpation on LLQ and epigastric No diarrhea no vomiting no alcohol drink no sick contact no change in stool no melena Ddx: viral GI vs any intraabdominal pathology or infection in a setting of immunosuppressed patient Plan CT abd wo Levin culture Acute renal failure superimposed on stage 4 chronic kidney disease (HCC) 01/02/2020 Anemia Anemia in stage 4 chronic kidney disease (HCC) 12/17/2016 Anemia of chronic kidney failure, stage 4 (severe) (HCC) 12/11/2016 Anxiety Arthritis Krueger's palsy CAD (coronary artery disease) Cancer (HCC) uterine and cervical Celiac disease 2007 Cellulitis of back except buttock Cirrhosis of liver without mention of alcohol CKD (chronic kidney disease) Dialysis M/W/F [facility] COPD (chronic obstructive pulmonary disease) (HCC) Diabetes mellitus without mention of complication Diabetic polyneuropathy (HCC) 02/04/2017 Disorder of thyroid DVT (deep venous thrombosis) (HCC) Esophageal reflux Hammer toes, bilateral 11/30/2016 History of transfusion Hypertension Incisional hernia 12/30/2008 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 Plan: - Continue Tacrolimus 1.5 mg BID - daily Tacrolimus levels - Continue Otezla 30 mg BID Lymphedema RAUL (obstructive sleep apnea) does not use CPAP Other and unspecified hyperlipidemia Other lymphedema runs in family PMH - PAST MEDICAL HISTORY OF 1998 endometrial cancer, had complete hysterectomy Psoriasis and similar disorders [place]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 No colitis. Poor rectal sphincter tone. Referred to Oriana Newberry. COLONOSCOPY FLX DX W/COLLJ SPEC WHEN PFRMD 11/29/2011 [facility] Main /Dr. Anderson COLONOSCOPY FLX DX W/COLLJ SPEC WHEN PFRMD 07/2011 Janneth COLONOSCOPY FLX DX W/COLLJ SPEC WHEN PFRMD 09/2011 Dr. Lagunas [facility] ESOPHAGOGASTRODUODENOSCOPY TRANSORAL DIAGNOSTIC 12/2009 [facility] Janneth ESOPHAGOGASTRODUODENOSCOPY TRANSORAL DIAGNOSTIC 12/2010 [facility] Janneth FISTULA HERNIA REPAIR HX 12/2008 incisional hernia repair LVR ALTRNSPLJ ORTHOTOPIC PRTL/WHL DON ANY AGE 0507/2008 PAST SURGICAL HISTORY OF 1989 left ovary/cyst removal PAST SURGICAL HISTORY OF 1974 all teeth removed SKIN BIOPSY HX TOTAL ABDOMINAL HYSTERECT W/WO RMVL TUBE OVARY 1998 Hysterectomy, FRANSISCA -for endometrial cancer VAGINAL HYSTERECTOMY VASCULAR SURGERY PROCEDURE ALLERGIES Clindamycin, Buspar [Buspirone Hcl], Duricef [Cefadroxil], Keflex [Cephalexin], Lisinopril, Losartan, Naprosyn [Naproxen], Niaspan [Niacin], Sulfa (Sulfonamide Antibiotics), and Unasyn [Ampicillin-Sulbactam] MEDICATIONS levoFLOXacin (LEVAQUIN) 250 mg tablet^Take 0.5 tablets by mouth once daily. Take 500mg x1 on day one then take 125mg once daily for following 6 days.^Disp: 3 tablet^Rfl: 0 levoFLOXacin (LEVAQUIN) 500 mg tablet^Take 500mg x1 on day one then take 125mg once daily for following 6 days.^Disp: 1 tablet^Rfl: 0 rOPINIRole (REQUIP) 1 mg tablet^Take one tab in the morning and 2 in the evening^Disp: 270 tablet^Rfl: 1 loperamide HCl (LOPERAMIDE ORAL)^Take 4 mg by mouth as needed.^Disp: ^Rfl: albuterol HFA (PROVENTIL HFA, VENTOLIN HFA) 90 mcg/actuation inhaler^^Disp: ^Rfl: dicyclomine (BENTYL) 20 mg tablet^As needed^Disp: ^Rfl: diphenoxylate-atropine (LOMOTIL) 2.5-0.025 mg per tablet^As needed^Disp: ^Rfl: Ascorbic Acid 500 mg chew^Take 500 mg by mouth once daily.^Disp: ^Rfl: torsemide (DEMADEX) 20 mg tablet^Take 2 tablets by mouth once daily.^Disp: 60 tablet^Rfl: 2 traZODone (DESYREL) 100 mg tablet^Take 2 tablets by mouth daily at bedtime.^Disp: 180 tablet^Rfl: 1 insulin aspart U-100 (NOVOLOG U-100 INSULIN ASPART) 100 unit/mL^Inject 22 units before breakfast, 26 units before lunch, and 22 units before dinner as directed. Type 2 diabetes mellitus with microalbuminuria, with long-term current use of insulin ([facility]) - Primary E11.29, R80.9, Z79.4^Disp: ^Rfl: 0 blood sugar diagnostic (BLOOD GLUCOSE TEST) test strip^Test blood sugar(s) 5 times daily. Dx: Type 2 DM - Controlled E11.9 Insulin: Yes^Disp: 450 Strip^Rfl: 3 tacrolimus IR (PROGRAF) 0.5 mg capsule^TAKE 1 CAPSULE TWICE DAILY^Disp: 180 capsule^Rfl: 3 Blood-Glucose Transmitter (NETpeas G6 TRANSMITTER) brady^Apply new transmitter every 90 days. Clean transmitter with an alcohol swab with each sensor change.^Disp: 1 Each^Rfl: 3 Blood-Glucose Meter,Continuous (DEXCOM G6 CHIP BIN OPERATOR) misc^Use to check blood sugar at least four (4) times daily.^Disp: 1 Each^Rfl: 0 Blood-Glucose Sensor (DEXCOM G6 SENSOR) brady^Apply new sensor every ten (10) days to abdomen.^Disp: 9 Each^Rfl: 3 triamcinolone acetonide (KENALOG) 0.1 % ointment^Apply to affected area twice daily.^Disp: ^Rfl: melatonin 5 mg tablet^Take 10 mg by mouth daily at bedtime.^Disp: ^Rfl: Insulin Syringe-Needle U-100 0.5 mL 31 gauge x 5/16 ^Use to inject insulin 5 times daily as directed.^Disp: 450 Each^Rfl: 3 insulin glargine (LANTUS U-100 INSULIN) 100 unit/mL injection^Inject 50 Units subcutaneously twice daily. Via Syringe^Disp: 90 mL^Rfl: 3 clopidogrel (PLAVIX) 75 mg tablet^Take 1 tablet by mouth once daily.^Disp: 90 tablet^Rfl: 3 nitroglycerin sublingual (NITROQUICK) 0.4 mg SL tablet^Dissolve 1 tablet under the tongue every 5 minutes as needed for chest pain.^Disp: 1 Bottle of 25^Rfl: 0 apremilast (OTEZLA) 30 mg tablet^Take 1 tablet by mouth once daily.^Disp: 90 tablet^Rfl: 3 atorvastatin (LIPITOR) 10 mg tablet^Take 1 tablet by mouth once daily.^Disp: 90 tablet^Rfl: 3 carvedilol (COREG) 12.5 mg tablet^Take 1 tablet by mouth twice daily.^Disp: 180 tablet^Rfl: 3 levothyroxine (LEVOXYL) 88 mcg tablet^Take 1 tablet by mouth once daily. Take on empty stomach. For Thyroid^Disp: 90 tablet^Rfl: [address] (PROTONIX) 40 mg tablet^Take 1 tablet by mouth once daily. As needed for upset stomach^Disp: 90 tablet^Rfl: 1 (Patient taking differently: Take 40 mg by mouth twice daily. As needed for upset stomach ) sertraline (ZOLOFT) 50 mg tablet^Take 1 tablet by mouth once daily.^Disp: 90 tablet^Rfl: 3 sevelamer carbonate (RENVELA) 800 mg tablet^Take by mouth. Taking 2 tablet with breakfast, 2 tablet with lunch, and 2 tablets with dinner as directed. ^Disp: ^Rfl: B Complex-Vitamin C-Folic Acid (RENAL VITAMIN) 0.8 mg tab^Take 1 tablet by mouth once daily.^Disp: ^Rfl: Blood-Glucose Meter monitoring kit^Glucose Meter of Choice - Kit - Dx: Type 2 DM - Uncontrolled E11.65 with hypoglycemia Insulin: yes^Disp: 1 Each^Rfl: 0 cholecalciferol (VITAMIN D3) 1,000 unit tab tablet^Take 1,000 Units by mouth twice daily. ^Disp: ^Rfl: vitamin B complex (B COMPLEX-VITAMIN B12 ORAL)^Take 5,000 mcg by mouth once daily.^Disp: ^Rfl: Ascorbic Acid 1,000 mg tablet^Take 1,000 mg by mouth once daily.^Disp: ^Rfl: ACCU-CHEK MULTICLIX LANCET lancets^TEST BLOOD SUGAR 4 TO 5 TIMES DAILY. ^Disp: 510 Each^Rfl: 3 + Nebulizer Supplies^Nebulizer, Mask, & O2 Tubing. Use as directed.^Disp: 1 Each^Rfl: 12 FAMILY HISTORY Problem Relation Age of Onset Cancer Father age 73 lung CA Stroke Father Ischemic Heart Disease Father [place] age 70s Diabetes Mother age 76 other (Dementia) Mother other (CHF) Mother other (Lymphedema) Mother other (renal failure) Mother Psoriasis Brother other (cirrhosis) Brother from aneurysm at age 38 other (psoriasis) Brother Social History Tobacco Use Smoking status: Passive Smoke Exposure - Never Smoker Smokeless tobacco: Never Tobacco comments: Parents both smoked in childhood home. No household ETS since. Vaping Use Vaping Use: Never used Substance Use Topics Alcohol use: No Drug use: No PHYSICAL EXAM BP 144/68 Pulse 80 Resp 16 Wt 112 kg (247 lb) BMI 41.10 kg/m General Appearance: well appearing, in no acute distress, alert Lungs: Lungs clear to auscultation. No wheezing, rhonchi, rales. Heart: RRR without murmur, gallop, or rubs. No ectopy Abdomen: Abdomen soft, non-tender. Bowel sounds normal. No masses, organomegaly Health maintenance reviewed with patient: BP CONTROLLED (<130/80) Never done DEPRESSION ASSESSMENT Never done DILATED RETINAL EXAM due on 10/20/2021 HPV TESTING due on 03/05/2022 MAMMOGRAM due on 03/30/2022 PAP TESTING due on 08/31/2022 DIABETIC FOOT EXAM due on 03/28/2022 HBA1C due on 04/22/2022 LDL CHOLESTEROL due on 12/11/2022 ANNUAL PCP TEAM CHRONIC DISEASE VISIT due on 12/11/2022 SERUM CREATININE due on 12/11/2022 HEMOGLOBIN/HEMATOCRIT due on 12/11/2022 PNEUMOCOCCAL(4 - PPSV23 if available, else PCV20) due on 11/07/2025 COLORECTAL CANCER SCREENING due on 09/13/2027 DTAP,TDAP,TD(3 - Td or Tdap) due on 12/31/2028 HEPATITIS B Completed INFLUENZA Completed HEPATITIS C SCREENING Completed HIV SCREENING Completed SHINGRIX VACCINE Completed COVID-19 VACCINE Completed HPV VACCINE Aged Out DATA REVIEWED: Most recent labs ASSESSMENT/PLAN: 1. Diarrhea, unspecified type - ICD9: 787.91, ICD10: R19.7 - no improvement. - original stool showing salmonella on PCR but not detected by culture. - colestipol as ordered. Prescription instructions reviewed with patient as applicable. Potential red flag symptoms discussed with the patient. Reviewed appropriate action plan to take if red flag symptoms occur. Patient agreeable to treatment plan. Silva Plasencia APRN.NATHALY documented in this encounter [facility] 12-29-2021 History of Present illness Narrative INSIGHT CDM TELEPHONIC OUTREACH Provider Action/FYI: voicemail Contact made with patient: No - Left message Hello my name is Roxie Palmer RN your Model And Dye Person from the [facility] I am calling today for your monthly check in. I am sorry I missed your call. I will reach out to you again tomorrow. Enter next patient outreach date for the following business day using the Track Pt Outreach. End outreach. documented in this encounter [facility] 12-13-2021 Miscellaneous Notes Patient notified and verbalized understanding. Franci Quinn LPN Silva Plasencia APRN.PROPERTY MANAGEMENT COORDINATOR OBI 7:48 PM Note Please let patient know she is positive for salmonella which is probable cause of diarrhea and abdominal cramping. I am prescribing an antibiotic for this called levaquin. She needs to take a 500mg dose x1 on first day and then 125mg once a day for 6 days after. Please follow up a week after treamtent to review for improvement. Thank you Silva Plasencia APRN.PROPERTY MANAGEMENT COORDINATOR documented in this encounter [facility] 12-12-2021 Miscellaneous Notes Patient has been identified by name and date of : Yes Patient phones for refill(s): Requested Prescriptions Pending Prescriptions Disp Refills rOPINIRole (REQUIP) 1 mg tablet 270 tablet 1 Sig: Take one tab in the morning and 2 in the evening Date of last office visit in primary care: 12/11/21 next apt 01/04/22 Last 2 Encounter Wt Readings: Date: Wt: 10/20/2021 114.8 kg (253 lb) 08/31/2021 112.9 kg (249 lb) Previous labs/tests for medication: Not applicable Thank you. Nell Lemons LPN documented in this encounter [facility] 12-11-2021 History of Present illness Narrative CC: Patient presents with: Recheck: Hosp follow up hyperkalemia HPI Christina Guerrier is a 66 year old female who presents today for Hospital follow-up. Facility: [facility] Date of visit: 12/07/21-12/08/21 Reason for visit: hyperkalemia and skin infection - had missed dialysis for not feeling good. Hospital course: Potassium orginally 6.5 but with dialysis 4.7 on discharge, Diagnosis: hyperkalemia and cellulitis Discharge: on doxycycline Current symptoms: Concerned mainly with chronic gas and having diarrhea every day for the past few months. Has been taking immodium once a day every day but still having an average 2-3 times liquid stool that she is sometimes incontinent because of the urgency. Occasionally will have mucous in her stools and hs lower abdominal pain as well. Drinks a protein shake a day. Was having bleeding from vagina and rectum which she went to the ER for [address] weeks ago[address] GI [address] Lerner for this and had a colonoscopy showing colitis and some cysts removed. Diarrhea started post colonscopy and has nto stopped. Did stop taking the miralax as prescribed by him. States she feels very bloated, nasueated, and with dry heaves. Denies foul smelling stool, fever, chills, or blood in stool. Cellulitis to right flank per patient has healed. Is continuing to finish doxycycline. No increase in her chronic shortness of breath, edema, or chest pain. REVIEW OF SYSTEMS General: no fevers, no chills, no night sweats, no recurrent infections, no change in appetite, no change in energy, and no significant changes in weight Respiratory: no cough, no wheezing, no hemoptysis Cardiovascular: no chest pain, no chest pressure, no palpitations, and no swelling GI: See HPI : does not urinate much since end stage renal disease Skin: See HPI Neurologic: No headache, new weakness dizziness, memory loss, syncope. PAST MEDICAL HISTORY Diagnosis Date Abdominal pain 12/21/2014 Diffuse abdominal pain x 6 days Worsened with palpation on LLQ and epigastric No diarrhea no vomiting no alcohol drink no sick contact no change in stool no melena Ddx: viral GI vs any intraabdominal pathology or infection in a setting of immunosuppressed patient Plan CT abd wo Levin culture Acute renal failure superimposed on stage 4 chronic kidney disease (HCC) 01/02/2020 Anemia Anemia in stage 4 chronic kidney disease (HCC) 12/17/2016 Anemia of chronic kidney failure, stage 4 (severe) (HCC) 12/11/2016 Anxiety Arthritis Krueger's palsy CAD (coronary artery disease) Cancer (HCC) uterine and cervical Celiac disease 2007 Cellulitis of back except buttock Cirrhosis of liver without mention of alcohol CKD (chronic kidney disease) Dialysis M/W/F [facility] COPD (chronic obstructive pulmonary disease) (HCC) Diabetes mellitus without mention of complication Diabetic polyneuropathy (HCC) 02/04/2017 Disorder of thyroid DVT (deep venous thrombosis) (HCC) Esophageal reflux Hammer toes, bilateral 11/30/2016 History of transfusion Hypertension Incisional hernia 12/30/2008 Liver replaced by transplant (HCC) 2008 - Cirrhosis s/p OLT 2008 - Cirrhosis / [place] Plan: - Continue Tacrolimus 1.5 mg BID - daily Tacrolimus levels - Continue Otezla 30 mg BID Lymphedema RAUL (obstructive sleep apnea) does not use CPAP Other and unspecified hyperlipidemia Other lymphedema runs in family PMH - PAST MEDICAL HISTORY OF 1998 endometrial cancer, had complete hysterectomy Psoriasis and similar disorders [place]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 No colitis. Poor rectal sphincter tone. Referred to [facility]. COLONOSCOPY FLX DX W/COLLJ SPEC WHEN PFRMD 11/29/2011 [facility] /Dr. Anderson COLONOSCOPY FLX DX W/COLLJ SPEC WHEN PFRMD 07/2011 Jann[facility] COLONOSCOPY FLX DX W/COLLJ SPEC WHEN PFRMD 09/2011 Dr. Lagunas [facility] ESOPHAGOGASTRODUODENOSCOPY TRANSORAL DIAGNOSTIC 12/2009 [facility] Janneth ESOPHAGOGASTRODUODENOSCOPY TRANSORAL DIAGNOSTIC 12/2010 [facility] Janneth FISTULA HERNIA REPAIR HX 12/2008 incisional hernia repair LVR ALTRNSPLJ ORTHOTOPIC PRTL/WHL DON ANY AGE 0507/2008 PAST SURGICAL HISTORY OF 1989 left ovary/cyst removal PAST SURGICAL HISTORY OF 1974 all teeth removed SKIN BIOPSY HX TOTAL ABDOMINAL HYSTERECT W/WO RMVL TUBE OVARY 1998 Hysterectomy, FRANSISCA -for endometrial cancer VAGINAL HYSTERECTOMY VASCULAR SURGERY PROCEDURE ALLERGIES Clindamycin, Buspar [Buspirone Hcl], Duricef [Cefadroxil], Keflex [Cephalexin], Lisinopril, Losartan, Naprosyn [Naproxen], Niaspan [Niacin], Sulfa (Sulfonamide Antibiotics), and Unasyn [Ampicillin-Sulbactam] MEDICATIONS loperamide HCl (LOPERAMIDE ORAL)^Take 4 mg by mouth as needed.^Disp: ^Rfl: albuterol HFA (PROVENTIL HFA, VENTOLIN HFA) 90 mcg/actuation inhaler^^Disp: ^Rfl: dicyclomine (BENTYL) 20 mg tablet^As needed^Disp: ^Rfl: diphenoxylate-atropine (LOMOTIL) 2.5-0.025 mg per tablet^As needed^Disp: ^Rfl: Ascorbic Acid 500 mg chew^Take 500 mg by mouth once daily.^Disp: ^Rfl: torsemide (DEMADEX) 20 mg tablet^Take 2 tablets by mouth once daily.^Disp: 60 tablet^Rfl: 2 traZODone (DESYREL) 100 mg tablet^Take 2 tablets by mouth daily at bedtime.^Disp: 180 tablet^Rfl: 1 insulin aspart U-100 (NOVOLOG U-100 INSULIN ASPART) 100 unit/mL^Inject 22 units before breakfast, 26 units before lunch, and 22 units before dinner as directed. Type 2 diabetes mellitus with microalbuminuria, with long-term current use of insulin ([facility]) - Primary E11.29, R80.9, Z79.4^Disp: ^Rfl: 0 blood sugar diagnostic (BLOOD GLUCOSE TEST) test strip^Test blood sugar(s) 5 times daily. Dx: Type 2 DM - Controlled E11.9 Insulin: Yes^Disp: 450 Strip^Rfl: 3 tacrolimus IR (PROGRAF) 0.5 mg capsule^TAKE 1 CAPSULE TWICE DAILY^Disp: 180 capsule^Rfl: 3 Blood-Glucose Transmitter (DEXCOM G6 TRANSMITTER) brady^Apply new transmitter every 90 days. Clean transmitter with an alcohol swab with each sensor change.^Disp: 1 Each^Rfl: 3 Blood-Glucose Meter,Continuous (DEXCOM G6 CHIP BIN OPERATOR) misc^Use to check blood sugar at least four (4) times daily.^Disp: 1 Each^Rfl: 0 Blood-Glucose Sensor (DEXCOM G6 SENSOR) brady^Apply new sensor every ten (10) days to abdomen.^Disp: 9 Each^Rfl: 3 triamcinolone acetonide (KENALOG) 0.1 % ointment^Apply to affected area twice daily.^Disp: ^Rfl: melatonin 5 mg tablet^Take 10 mg by mouth daily at bedtime.^Disp: ^Rfl: Insulin Syringe-Needle U-100 0.5 mL 31 gauge x 16 ^Use to inject insulin 5 times daily as directed.^Disp: 450 Each^Rfl: 3 insulin glargine (LANTUS U-100 INSULIN) 100 unit/mL injection^Inject 50 Units subcutaneously twice daily. Via Syringe^Disp: 90 mL^Rfl: 3 clopidogrel (PLAVIX) 75 mg tablet^Take 1 tablet by mouth once daily.^Disp: 90 tablet^Rfl: 3 nitroglycerin sublingual (NITROQUICK) 0.4 mg SL tablet^Dissolve 1 tablet under the tongue every 5 minutes as needed for chest pain.^Disp: 1 Bottle of 25^Rfl: 0 apremilast (OTEZLA) 30 mg tablet^Take 1 tablet by mouth once daily.^Disp: 90 tablet^Rfl: 3 atorvastatin (LIPITOR) 10 mg tablet^Take 1 tablet by mouth once daily.^Disp: 90 tablet^Rfl: 3 carvedilol (COREG) 12.5 mg tablet^Take 1 tablet by mouth twice daily.^Disp: 180 tablet^Rfl: 3 levothyroxine (LEVOXYL) 88 mcg tablet^Take 1 tablet by mouth once daily. Take on empty stomach. For Thyroid^Disp: 90 tablet^Rfl: [address] (PROTONIX) 40 mg tablet^Take 1 tablet by mouth once daily. As needed for upset stomach^Disp: 90 tablet^Rfl: 1 (Patient taking differently: Take 40 mg by mouth twice daily. As needed for upset stomach ) rOPINIRole (REQUIP) 1 mg tablet^Take one tab in the morning and 2 in the evening^Disp: 270 tablet^Rfl: 1 sertraline (ZOLOFT) 50 mg tablet^Take 1 tablet by mouth once daily.^Disp: 90 tablet^Rfl: 3 sevelamer carbonate (RENVELA) 800 mg tablet^Take by mouth. Taking 2 tablet with breakfast, 2 tablet with lunch, and 2 tablets with dinner as directed. ^Disp: ^Rfl: B Complex-Vitamin C-Folic Acid (RENAL VITAMIN) 0.8 mg tab^Take 1 tablet by mouth once daily.^Disp: ^Rfl: Blood-Glucose Meter monitoring kit^Glucose Meter of Choice - Kit - Dx: Type 2 DM - Uncontrolled E11.65 with hypoglycemia Insulin: yes^Disp: 1 Each^Rfl: 0 cholecalciferol (VITAMIN D3) 1,000 unit tab tablet^Take 1,000 Units by mouth twice daily. ^Disp: ^Rfl: vitamin B complex (B COMPLEX-VITAMIN B12 ORAL)^Take 5,000 mcg by mouth once daily.^Disp: ^Rfl: Ascorbic Acid 1,000 mg tablet^Take 1,000 mg by mouth once daily.^Disp: ^Rfl: ACCU-CHEK MULTICLIX LANCET lancets^TEST BLOOD SUGAR 4 TO 5 TIMES DAILY. ^Disp: 510 Each^Rfl: 3 + Nebulizer Supplies^Nebulizer, Mask, & O2 Tubing. Use as directed.^Disp: 1 Each^Rfl: 12 FAMILY HISTORY Problem Relation Age of Onset Cancer Father age 73 lung CA Stroke Father Ischemic Heart Disease Father [place] age 70s Diabetes Mother age 76 other (Dementia) Mother other (CHF) Mother other (Lymphedema) Mother other (renal failure) Mother Psoriasis Brother other (cirrhosis) Brother from aneurysm at age 38 other (psoriasis) Brother Social History Tobacco Use Smoking status: Passive Smoke Exposure - Never Smoker Smokeless tobacco: Never Tobacco comments: Parents both smoked in childhood home. No household ETS since. Vaping Use Vaping Use: Never used Substance Use Topics Alcohol use: No Drug use: No PHYSICAL EXAM BP 132/62 Pulse 68 Resp 16 General Appearance: well appearing, in no acute distress, alert Skin: Skin color, texture, turgor normal for age; Light pink to right side, no redness tenderness or increased warmth Eyes: conjunctiva pink and moist, no icterus, sclera white, non-injected Lungs: Lungs clear to auscultation. No wheezing, rhonchi, rales. Heart: RRR without murmur, gallop, or rubs. No ectopy, Right AV fistula positive for bruit and thrill. Abdomen: Abdomen soft, non-tender. Bowel sounds normal. No masses noted but difficult exam with abdominal girth BUE Extremities: No deformities, edema, skin discoloration, clubbing or cyanosis. Good capillary refill. BP CONTROLLED (<130/80) Never done DEPRESSION ASSESSMENT Never done DILATED RETINAL EXAM due on 10/20/2021 HPV TESTING due on 03/05/2022 PAP TESTING due on 08/31/2022 DIABETIC FOOT EXAM due on 03/28/2022 MAMMOGRAM due on 03/30/2022 HBA1C due on 04/22/2022 LDL CHOLESTEROL due on 07/03/2022 ANNUAL PCP TEAM CHRONIC DISEASE VISIT due on 10/20/2022 SERUM CREATININE due on 10/20/2022 HEMOGLOBIN/HEMATOCRIT due on 10/20/2022 PNEUMOCOCCAL(4 - PPSV23 if available, else PCV20) due on 11/07/2025 COLORECTAL CANCER SCREENING due on 09/13/2027 DTAP,TDAP,TD(3 - Td or Tdap) due on 12/31/2028 HEPATITIS B Completed INFLUENZA Completed HEPATITIS C SCREENING Completed HIV SCREENING Completed SHINGRIX VACCINE Completed COVID-19 VACCINE Completed HPV VACCINE Aged Out DATA REVIEWED: Outside chart from [facility] reviewed. ASSESSMENT/PLAN: 1. History of recent hospitalization - ICD9: V13.9, ICD10: Z92.89 (primary diagnosis) - issues of cellulitis and hyperkalemia resolving 2. Diarrhea, unspecified type - ICD9: 787.91, ICD10: R19.7 - very concerning with her large amount of antibiotic use over the last few months - C. DIFFICILE PCR - ENTERIC BACTERIAL PANEL BY PCR - BASIC METABOLIC PNL - CBC + DIFF - follow up in 2 weeks 3. Lower abdominal pain - ICD9: 789.09, ICD10: R10.30 - URINALYSIS, WITH MICROSCOPIC - URINE CULTURE - C. DIFFICILE PCR - ENTERIC BACTERIAL PANEL BY PCR 4. Hyperkalemia - ICD9: 276.7, ICD10: E87.5 - resolved prior to discharge - BASIC METABOLIC PNL 5. Cellulitis, unspecified cellulitis site - ICD9: 682.9, ICD10: L03.90 Resolving Finish current antibiotic - follow up for any return of redness 6. Anemia of chronic kidney failure, stage 4 (severe) (HCC) - ICD9: 285.21, 585.4, ICD10: N18.4, D63.1 - BASIC METABOLIC PNL - CBC + DIFF Prescription instructions reviewed with patient as applicable. Potential red flag symptoms discussed with the patient. Reviewed appropriate action plan to take if red flag symptoms occur. Patient agreeable to treatment plan. Silva Plasencia APRN.CNP I spent 30 minutes in the visit, with more than 50% of the total [id number] time of the visit in counseling / coordination of care. documented in this encounter [facility] 12-04-2021 History of Present illness Narrative INSIGHT [facility] TELEPHONIC OUTREACH Provider Action/FYI: 2nd attempt, left another message Contact made with patient: No - Left message Tierney my name is Roxie Palmer RN your Model And Dye Person from the [facility] I am calling today for your bi-weekly check in. I am sorry I missed your call. I will reach out to you again tomorrow. (if the third call I will reach out to you again next week) Enter next patient outreach date for the following business day using the Track Pt Outreach. End outreach. documented in this encounter [facility] 12-01-2021 History of Present illness Narrative [facility]IGHT [facility] TELEPHONIC OUTREACH Provider Action/FYI: voicemail Contact made with patient: No - Left message Hello my name is Roxie Palmer RN your Model And Dye Person from the [facility] I am calling today for your bi-weekly check in. I am sorry I missed your call. I will reach out to you again tomorrow. (if the third call I will reach out to you again next week) Enter next patient outreach date for the following business day using the Track Pt Outreach. End outreach. documented in this encounter [facility] 11-07-2021 History of Present illness Narrative [facility]IGHT [facility] TELEPHONIC OUTREACH Provider Action/FYI: 2nd attempt No answer/voicemail not set up Unable to leave message Contact made with patient: No - Unable to leave message Entered next patient outreach date for the following business day, if third call please enter next outreach date for one week in the Track Pt. Outreach - End Outreach documented in this encounter [facility] 11-03-2021 History of Present illness Narrative [facility]IGHT [facility] TELEPHONIC OUTREACH Provider Action/FYI: No answer/voicemail not set up Contact made with patient: No - Unable to leave message Entered next patient outreach date for the following business day, if third call please enter next outreach date for one week in the Track Pt. Outreach - End Outreach documented in this encounter [facility] 11-02-2021 History of Present illness Narrative Images from the original note were not included. Primary Care Pharmacy Visit CC (Reason for Consult): Diabetes Goal: A1c < 8% Collaborating Provider: Dr. Hunt Last Provider Visit: Christina Guerrier is a 66 year old female presenting for follow up visit by telephone. Patient consents to pharmacy collaborative practice agreement. Patient is presenting today for f/up pharmacotherapy management appointment for diabetes. At last PharmD visit on 10/12, lunchtime Novolog was increased. At PROPERTY MANAGEMENT COORDINATOR visit on 10/20, patient seen for ear pain and vaginal/rectal bleeding, and on 10/22 patient hospitalized for GI bleed. Subjective: HPI: Patient reports she only has 1 Dexcom sensor left. She gets supplies through [facility]. States her Dexcom keeps alerting her that signal gets lost even when phone is sitting right next to her. Admits her WiFi connection at home is weak. Was in hospital last week, got out on Saturday, states she isn't eating very much at this time. She had a stomach bleeding. Lots of GI issues and problems with rectum, is using suppositories until it heals. No diet restriction but doesn't feel like eating just yet because it upsets her stomach. Still having occasional diarrhea. Current DM Medications: Insulin glargine (Lantus) 50 units BID Insulin aspart (Novolog) 22-26-22 units TIDAC GLYCEMIC CONTROL: Preventative Medications: On ODETTE/ARB: No On Statin: Yes MEDICATIONS: Pill bottles are not present Adherence: denies missed doses [facility]: [facility] [place] [employer] [facility] [place] [facility] Affordability: no issues Diabetes supplies: [employer] System: pill box ACTIVE PROBLEM LIST WOUND (NOT COMPLICATED) - OPEN 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 Osteoporosis Osteomalacia, Unspecified Celiac Disease Unspecified Vitamin D Deficiency Liver Replaced By Transplant (Hcc) Complications of Transplanted Liver (Hcc) Need for Prophylactic Immunotherapy Hypersplenism Raul (Obstructive Sleep Apnea) Summary T2dm (Type 2 Diabetes Mellitus) (Hcc) Hypertension Recurrent Cellulitis of Lower Leg Acquired Hypothyroidism Sandhya (Iron Deficiency Anemia) Iron Malabsorption Anemia of Chronic Kidney Failure, Stage 4 (Severe) (Hcc) Ckd (Chronic Kidney Disease) Stage 4, Gfr 15-29 Ml/Min (Hcc) Anemia in Stage 4 Chronic Kidney Disease (Hcc) Obesity, Class Iii, Bmi 40-49.9 (Morbid Obesity) (Hcc) Pain in Right Hip Cellulitis of Back Hx of Transfusion Thrombocytopenia, Secondary Lymphedema Grade II Diastolic Dysfunction Bilateral Lower Extremity Edema Sob (Shortness of Breath) On Exertion Encounter for Screening for Cardiovascular Disorders Primary Hypertension Abnormal Stress Test Cancer (Hcc) Krueger's Palsy Coronary Artery Disease Involving [place] Coronary Artery of [place] Heart Without Angina Pectoris Stable Angina (Hcc) Hospital Discharge Follow-Up PAST MEDICAL HISTORY Diagnosis Date Abdominal pain 12/21/2014 Diffuse abdominal pain x 6 days Worsened with palpation on LLQ and epigastric No diarrhea no vomiting no alcohol drink no sick contact no change in stool no melena Ddx: viral GI vs any intraabdominal pathology or infection in a setting of immunosuppressed patient Plan CT abd wo Levin culture Acute renal failure superimposed on stage 4 chronic kidney disease (HCC) 01/02/2020 Anemia Anemia in stage 4 chronic kidney disease (HCC) 12/17/2016 Anemia of chronic kidney failure, stage 4 (severe) (HCC) 12/11/2016 Anxiety Arthritis Krueger's palsy CAD (coronary artery disease) Cancer (HCC) uterine and cervical Celiac disease 2008 Cellulitis of back except buttock Cirrhosis of liver without mention of alcohol CKD (chronic kidney disease) Dialysis M/W/F [facility] COPD (chronic obstructive pulmonary disease) (HCC) Diabetes mellitus without mention of complication Diabetic polyneuropathy (HCC) 02/04/2017 Disorder of thyroid DVT (deep venous thrombosis) (HCC) Esophageal reflux Hammer toes, bilateral 11/30/2016 History of transfusion Hypertension Incisional hernia 12/30/2008 Liver replaced by transplant (HCC) 2008 - Cirrhosis s/p OLT 2008 - Cirrhosis / [place] Plan: - Continue Tacrolimus 1.5 mg BID - daily Tacrolimus levels - Continue Otezla 30 mg BID Lymphedema RUAL (obstructive sleep apnea) does not use CPAP Other and unspecified hyperlipidemia Other lymphedema runs in family PMH - PAST MEDICAL HISTORY OF 1998 endometrial cancer, had complete hysterectomy Psoriasis and similar disorders [place]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 Use as directed. supplies ACCU-CHEK MULTICLIX LANCET lancets TEST BLOOD SUGAR 4 TO 5 TIMES DAILY. supplies apremilast (OTEZLA) 30 mg tablet Take 1 tablet by mouth once daily. taking Ascorbic Acid 1,000 mg tablet Take 1,000 mg by mouth once daily. taking aspirin, enteric coated (ECOTRIN LOW STRENGTH) 81 mg EC tablet Take 1 tablet by mouth once daily. Stopped in hospital due to GI bleed; may be restarted in the future per patient Removed from med list atorvastatin (LIPITOR) 10 mg tablet Take 1 tablet by mouth once daily. taking B Complex-Vitamin C-Folic Acid (RENAL VITAMIN) 0.8 mg tab Take 1 tablet by mouth once daily. taking BIOTIN ORAL Take 1 tablet by mouth once daily. Taking for hair Suggested looking at renal MVI to see if biotin already included, if so can stop blood sugar diagnostic (BLOOD GLUCOSE TEST) test strip Test blood sugar(s) 5 times daily. Dx: Type 2 DM - Controlled E11.9 Insulin: Yes supplies Blood-Glucose Meter monitoring kit Glucose Meter of Choice - Kit - Dx: Type 2 DM - Uncontrolled E11.65 with hypoglycemia Insulin: yes supplies Blood-Glucose Meter,Continuous (DEXCOM G6 CHIP BIN OPERATOR[place] [facility] [place] to check blood sugar at least four (4) times daily. supplies Blood-Glucose Sensor (DEXCOM G6 SENSOR) brady Apply new sensor every ten (10) days to abdomen. supplies Blood-Glucose Transmitter (DEXCOM G6 TRANSMITTER) brady Apply new transmitter every 90 days. Clean transmitter with an alcohol swab with each sensor change. supplies carvedilol (COREG) 12.5 mg tablet Take 1 tablet by mouth twice daily. Patient taking differently: Take 12.5 mg by mouth once daily. Taking twice daily cholecalciferol (VITAMIN D3) 1,000 unit tab tablet Take 1,000 Units by mouth twice daily. taking clopidogrel (PLAVIX) 75 mg tablet Take 1 tablet by mouth once daily. taking colchicine 0.6 mg tablet Take 0.5 tablet by mouth once daily for 14 days Has for PRN use; doesn't have any currently insulin aspart U-100 (NOVOLOG U-100 INSULIN ASPART) 100 unit/mL Inject 22 units before breakfast, 26 units before lunch, and 22 units before dinner as directed. Type 2 diabetes mellitus with microalbuminuria, with long-term current use of insulin ([facility]) - Primary E11.29, R80.9, Z79.4 insulin glargine (LANTUS U-100 INSULIN) 100 unit/mL injection Inject 50 Units subcutaneously twice daily. Via Syringe Insulin Syringe-Needle U-100 0.5 mL 31 gauge x 5/16 Use to inject insulin 5 times daily as directed. supplies levothyroxine (LEVOXYL) 88 mcg tablet Take 1 tablet by mouth once daily. Take on empty stomach. For Thyroid taking melatonin 5 mg tablet Take 6 tablets by mouth daily at bedtime. Taking 2 tabs at night to help sleep Updated med list nitroglycerin sublingual (NITROQUICK) 0.4 mg SL tablet Dissolve 1 tablet under the tongue every 5 minutes as needed for chest pain. Has for PRN use ofloxacin (OCUFLOX) 0.3 % ophthalmic solution 2 Drops four times daily for 10 days. To R ear canal Still using occasionally, PRN; states she gets irritation in ear canal pantoprazole DR (PROTONIX) 40 mg tablet Take 1 tablet by mouth once daily. As needed for upset stomach Patient taking differently: Take 40 mg by mouth twice daily. As needed for upset stomach Taking BID rOPINIRole (REQUIP) 1 mg tablet Take one tab in the morning and 2 in the evening taking sertraline (ZOLOFT) 50 mg tablet Take 1 tablet by mouth once daily. taking sevelamer carbonate (RENVELA) 800 mg tablet Take by mouth. Taking 2 tablet with breakfast, 2 tablet with lunch, and 2 tablets with dinner as directed. taking tacrolimus IR (PROGRAF) 0.5 mg capsule TAKE 1 CAPSULE TWICE DAILY taking torsemide (DEMADEX) 20 mg tablet Take 2 tablets by mouth once daily. taking traZODone (DESYREL) 100 mg tablet Take 2 tablets by mouth daily at bedtime. taking triamcinolone acetonide (KENALOG) 0.1 % ointment Apply to affected area twice daily. Has for psoriasis, PRN vitamin B complex (B COMPLEX-VITAMIN B12 ORAL) Take 5,000 mcg by mouth once daily. taking Rx meds not listed in EPIC: - Diphenoxylate-atropine 2.5mg-0.025mg PRN for diarrhea (prescribed by Dr. Lerner, gastro) - Dicyclomine 20mg PRN for abdominal issues (prescribed by Linette Hwang) - Albuterol HFA PRN OTCs: Loperamide PRN Herbals: none Objective: Exam: Last 3 Encounter BP Readings: Date: BP: 10/20/2021 138/50 09/28/2021 140/66 08/31/2021 130/60 Wt: 114.8 kg (253 lb) BMI: 42.10 kg/(m^2) LABS: Reviewed Lab Results Component Value Date HBA1C 6.0 10/20/2021 HBA1C 7.3 05/10/2021 HBA1C 7.2 11/15/2020 HBA1C 6.6 05/05/2020 HBA1C 8.0 01/02/2020 CMP: Glucose 147 10/20/2021 BUN 53 10/20/2021 Creatinine 6.89 10/20/2021 Sodium 135 10/20/2021 Potassium 5.6 10/20/2021 Chloride 97 10/20/2021 CO2 Content, Venous 27 10/20/2021 Protein, Total 6.6 10/20/2021 Albumin 3.6 10/20/2021 Calcium 9.2 10/20/2021 Alkaline Phosphatase 89 10/20/2021 Bilirubin, Total 0.5 10/20/2021 AST 23 10/20/2021 ALT 25 10/20/2021 ESRD on dialysis on [facility] Liver transplant list Lab Results Component Value Date CHOL 141 07/03/2021 CHOL 145 04/12/2021 LDL 64 07/03/2021 LDL 43 04/12/2021 HDL 29 07/03/2021 HDL 32 04/12/2021 TG 242 07/03/2021 TG 349 04/12/2021 The 10-year ASCVD risk score (Carla RIVERA, et al., 2019) is: 15.9% Values used to calculate the score: Age: 66 years Sex: Female Is Non- : No Diabetic: Yes Tobacco smoker: No Systolic Blood Pressure: 138 mmHg Is BP treated: Yes HDL Cholesterol: 29 mg/dL Total Cholesterol: 141 mg/dL Albumin/Creat Ratio (mg/g) Date Value 05/19/2020 254 (H) PHARMACOTHERAPY ASSESSMENT/PLAN: 1. Type 2 diabetes mellitus with microalbuminuria, with long-term current use of insulin ([facility]) - ICD9: 250.40, 791.0, V58.67, ICD10: E11.29, R80.9, Z79.4 (primary diagnosis) A1c goal < 7%; A1c at goal (6%) but it is not truly reflective of BG control given HD and anemia; CGM report shows Bgs uncontrolled (TIR 40%); Bgs have improved since increasing lunch-time dose of insulin; patient not eating much right now since home from hospital due to GI issues - is often snacking on crackers+cheese and popcorn without insulin since not having a full meal; will encouraged better adherence with mealtime insulin and f/up in ~1 month; DM meds limited to insulin given HD CONTINUE Lantus 50 units BID and Novolog 22-26-22 units TIDAC as prescribed If skipping a meal but only having a snack, may take 1/2 the dose of Novolog Advised to call [facility] Medical to request refill of CGM sensors; phone number provided 2. Medication management - ICD9: V58.69, ICD10: Z79.899 Reviewed all medications, indications, dosing, frequency, administration with patient. Medication list updated as described above. Patient is scheduled to see PROPERTY MANAGEMENT COORDINATOR on 01/04. Patient to have PharmD f/u on 12/07. Patient verbalized understanding of instructions. Kim La PharmD, [facility] Primary Care Clinical Pharmacist The majority of the pharmacy visit (> 50%) was spent counseling and/or coordinating care for the patient. interaction: telephonic time was 30 minutes. documented in this encounter [facility] 10-20-2021 History of Present illness Narrative Radiology Service Progress Note PATIENT NAME: Christina Guerrier DATE OF SERVICE: October 20, 2021 TIME: 2:28 PM PATIENT IDENTITY VERIFICATION COMPLETED USING TWO (2) IDENTIFIERS: Name and Date of confirmed by patient verbally. FALL SCREENING: Has the patient had 2 falls in the last year or 1 fall with injury or currently using an Ambulatory Assistive Device (Walker, Cane, Wheelchair, Crutches, etc.)? No PATIENT GENDER DATA: Female. status: : No status: NO. PATIENT RELEVANT IMPLANT DATA REVIEWED: Not Applicable RADIOLOGY DEPARTMENT: Ultrasound PERIPHERAL IV DATA: Not applicable SIGNED BY: RT Jemima(R) October 20, 2021 2:28 PM documented in this encounter [facility] 10-20-2021 History of Present illness Narrative Chief Complaint Patient presents with: Ear Pain: Rt ear pain started yesterday , then also yesterday started gets sick to stomach and pain, then goes to bathroom there is blood, on underware and tissue HPI Christina Guerrier is a 66 year old female who presents here today for Above Complaints. Christina is an established patient of Dr. Geremias MD. Christina is a new patient to me today.. Concerns today.. Ear pain -- R ear pain x 1-2 days. Sharp shooting pain started yesterday. Has had pimples in ear canal that have become irritated in the past. Denies fever/chills, URI-like symptoms, congestion, etc. Denies any drainage from ear. L ear normal. Vaginal bleeding -- Since last night. After washing dishes went to use restroom and had significant blood in toilet and when wiping. Bright red bleed x 45 minutes following this with some small clots. Woke up this morning with significant amount of blood in underwear. Reports cramping to lower abd/pelvic pain prior to bleeding. Bleeding in spurts per pt. Hysterectomy in 1998 d/t cancer of uterus and cervix. Still gets yearly pelvic exams/Paps? Follows with Dr. Hunt for everything. Gets yearly mammogram, up-to-date. Thinks could be vaginal and rectal bleeding but not sure. Does report mild chronic constipation -- pt relating to iron supplement d/t dialysis. Diarrhea occasional but none recently. Denies any BM since bleeding started. Does have hx of hemorrhoids. On blood thinner, Plavix. Denies any n/v. Denies any urinary symptoms such as dysuria, urinary urgency, frequency, or incontinence. Hx of chronic anemia d/t stage 4 CKD. Denies dizziness, lightheadedness, SOB. Last colonoscopy in 2018 -- normal. Told to repeat in [address] abd/pelvic in February -- unremarkable. Past medical history, appointments, medications, allergies reviewed. Previous Medical History PAST MEDICAL HISTORY Diagnosis Date Abdominal pain 12/21/2014 Diffuse abdominal pain x 6 days Worsened with palpation on LLQ and epigastric No diarrhea no vomiting no alcohol drink no sick contact no change in stool no melena Ddx: viral GI vs any intraabdominal pathology or infection in a setting of immunosuppressed patient Plan CT abd wo Levin culture Acute renal failure superimposed on stage 4 chronic kidney disease (HCC) 01/02/2020 Anemia Anemia in stage 4 chronic kidney disease (HCC) 12/17/2016 Anemia of chronic kidney failure, stage 4 (severe) (HCC) 12/11/2016 Anxiety Arthritis Krueger's palsy CAD (coronary artery disease) Cancer (HCC) uterine and cervical Celiac disease 2007 Cellulitis of back except buttock Cirrhosis of liver without mention of alcohol CKD (chronic kidney disease) Dialysis M/W/F [facility] COPD (chronic obstructive pulmonary disease) (HCC) Diabetes mellitus without mention of complication Diabetic polyneuropathy (HCC) 02/04/2017 Disorder of thyroid DVT (deep venous thrombosis) (HCC) Esophageal reflux Hammer toes, bilateral 11/30/2016 History of transfusion Hypertension Incisional hernia 12/30/2008 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 Plan: - Continue Tacrolimus 1.5 mg BID - daily Tacrolimus levels - Continue Otezla 30 mg BID Lymphedema RAUL (obstructive sleep apnea) does not use CPAP Other and unspecified hyperlipidemia Other lymphedema runs in family PMH - PAST MEDICAL HISTORY OF 1998 endometrial cancer, had complete hysterectomy Psoriasis and similar disorders [place]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 No colitis. Poor rectal sphincter tone. Referred to [facility]. COLONOSCOPY FLX DX W/COLLJ SPEC WHEN PFRMD 11/29/2011 [facility] /Dr. Anderson COLONOSCOPY FLX DX W/COLLJ SPEC WHEN PFRMD 07/2011 [facility] COLONOSCOPY FLX DX W/COLLJ SPEC WHEN PFRMD 09/2011 Dr. Lagunas [facility] ESOPHAGOGASTRODUODENOSCOPY TRANSORAL DIAGNOSTIC 12/2009 [facility] Janneth ESOPHAGOGASTRODUODENOSCOPY TRANSORAL DIAGNOSTIC 12/2010 [facility] Janneth FISTULA HERNIA REPAIR HX 12/2008 incisional hernia repair LVR ALTRNSPLJ ORTHOTOPIC PRTL/WHL DON ANY AGE 0507/2008 PAST SURGICAL HISTORY OF 1989 left ovary/cyst removal PAST SURGICAL HISTORY OF 1974 all teeth removed SKIN BIOPSY HX TOTAL ABDOMINAL HYSTERECT W/WO RMVL TUBE OVARY 1998 Hysterectomy, FRANSISCA -for endometrial cancer VAGINAL HYSTERECTOMY VASCULAR SURGERY PROCEDURE Family History FAMILY HISTORY Problem Relation Age of Onset Cancer Father age 73 lung CA Stroke Father Ischemic Heart Disease Father [place] age 70s Diabetes Mother age 76 other (Dementia) Mother other (CHF) Mother other (Lymphedema) Mother other (renal failure) Mother Psoriasis Brother other (cirrhosis) Brother from aneurysm at age 38 other (psoriasis) Brother Patient Allergies ALLERGIES Allergen Reactions Clindamycin Vomiting Buspar [Buspirone H* Hives Duricef [Cefadroxil] Hives Keflex [Cephalexin] Rash rash but unsure if it is from keflex Lisinopril Swelling Losartan Swelling Naprosyn [Naproxen] Other: See Comments lowers platelets Niaspan [Niacin] Hives Sulfa (Sulfonamide * Hives Unasyn [Ampicillin-* Hives Current Medications Current Outpatient Medications on File Prior to Visit Medication Sig insulin aspart U-100 (NOVOLOG U-100 INSULIN ASPART) 100 unit/mL Inject 22 units before breakfast, 26 units before lunch, and 22 units before dinner as directed. Type 2 diabetes mellitus with microalbuminuria, with long-term current use of insulin (HCC) - Primary E11.29, R80.9, Z79.4 blood sugar diagnostic (BLOOD GLUCOSE TEST) test strip Test blood sugar(s) 5 times daily. Dx: Type 2 DM - Controlled E11.9 Insulin: Yes tacrolimus IR (PROGRAF) 0.5 mg capsule TAKE 1 CAPSULE TWICE DAILY aspirin, enteric coated (ECOTRIN LOW STRENGTH) 81 mg EC tablet Take 1 tablet by mouth once daily. Blood-Glucose Meter,Continuous (DEXCOM G6 CHIP BIN OPERATOR) [facility] [place] to check blood sugar at least four (4) times daily. Blood-Glucose Sensor (DEXCOM G6 SENSOR) brady Apply new sensor every ten (10) days to abdomen. triamcinolone acetonide (KENALOG) 0.1 % ointment Apply to affected area twice daily. BIOTIN ORAL Take 1 tablet by mouth once daily. apremilast (OTEZLA) 30 mg tablet Take 1 tablet by mouth once daily. atorvastatin (LIPITOR) 10 mg tablet Take 1 tablet by mouth once daily. rOPINIRole (REQUIP) 1 mg tablet Take one tab in the morning and 2 in the evening sertraline (ZOLOFT) 50 mg tablet Take 1 tablet by mouth once daily. sevelamer carbonate (RENVELA) 800 mg tablet Take by mouth. Taking 2 tablet with breakfast, 2 tablet with lunch, and 2 tablets with dinner as directed. B Complex-Vitamin C-Folic Acid (RENAL VITAMIN) 0.8 mg tab Take 1 tablet by mouth once daily. Blood-Glucose Meter monitoring kit Glucose Meter of Choice - Kit - Dx: Type 2 DM - Uncontrolled E11.65 with hypoglycemia Insulin: yes vitamin B complex (B COMPLEX-VITAMIN B12 ORAL) Take 5,000 mcg by mouth once daily. Ascorbic Acid 1,000 mg tablet Take 1,000 mg by mouth once daily. ACCU-CHEK MULTICLIX LANCET lancets TEST BLOOD SUGAR 4 TO 5 TIMES DAILY. + Nebulizer Supplies Nebulizer, Mask, & O2 Tubing. Use as directed. Blood-Glucose Transmitter (DEXCOM G6 TRANSMITTER) brady Apply new transmitter every 90 days. Clean transmitter with an alcohol swab with each sensor change. melatonin 5 mg tablet Take 6 tablets by mouth daily at bedtime. Insulin Syringe-Needle U-100 0.5 mL 31 gauge x 16 Use to inject insulin 5 times daily as directed. insulin glargine (LANTUS U-100 INSULIN) 100 unit/mL injection Inject 50 Units subcutaneously twice daily. Via Syringe colchicine 0.6 mg tablet Take 0.5 tablet by mouth once daily for 14 days clopidogrel (PLAVIX) 75 mg tablet Take 1 tablet by mouth once daily. nitroglycerin sublingual (NITROQUICK) 0.4 mg SL tablet Dissolve 1 tablet under the tongue every 5 minutes as needed for chest pain. carvedilol (COREG) 12.5 mg tablet Take 1 tablet by mouth twice daily. (Patient taking differently: Take 12.5 mg by mouth once daily.) levothyroxine (LEVOXYL) 88 mcg tablet Take 1 tablet by mouth once daily. Take on empty stomach. For Thyroid pantoprazole DR (PROTONIX) 40 mg tablet Take 1 tablet by mouth once daily. As needed for upset stomach (Patient taking differently: Take 40 mg by mouth twice daily. As needed for upset stomach ) cholecalciferol (VITAMIN D3) 1,000 unit tab tablet Take 1,000 Units by mouth twice daily. Current Facility-Administered Medications on File Prior to Visit Medication perflutren lipid microspheres 1.3 mL in NaCl (PF) 0.9% 10 mL injection (DEFINITY) sodium chloride 0.9 % (flush) 10 mL (BD POSIFLUSH) Social History Social History Tobacco Use Smoking status: Passive Smoke Exposure - Never Smoker Smokeless tobacco: Never Tobacco comments: Parents both smoked in childhood home. No household ETS since. Vaping Use Vaping Use: Never used Substance Use Topics Alcohol use: No Drug use: No REVIEW OF SYSTEMS: as above Reviewed relevant PMHx, PSHx, Social Hx, current medications and allergies. Review of Symptoms REVIEW OF SYSTEMS See HPI. All other systems are negative. EXAM: BP 138/50 (BP Site: Right Arm, BP Position: Sitting, BP Cuff Size: Regular Adult) Pulse 68 Resp 18 Wt 114.8 kg (253 lb) BMI 42.10 kg/m General Appearance: Well appearing, alert, in no acute distress, well-hydrated, well nourished.. Skin: Skin color, texture, turgor normal, no suspicious rashes or lesions. Head: Normocephalic, no masses, lesions, tenderness or abnormalities. Ears: Positive findings: R TM: normal, L TM: normal, erythema and edema of ear canal: on right. Nose/Sinuses: Nares normal, septum midline, mucosa normal, no drainage or sinus tenderness. Oropharynx: Lips, mucosa, and tongue normal, teeth and gums normal, oropharynx normal. Lungs: Lungs clear to auscultation. No wheezing, rhonchi, rales.. Heart: RRR without murmur, gallop, or rubs. No ectopy. Abdomen: Normal abdominal exam, Abdomen soft, non-tender. Bowel sounds normal. No masses, organomegaly. Pelvic: Deferred d/t poor mobility Rectal: Deferred exam. Health Maintenance List BP CONTROLLED (<130/80) Never done DILATED RETINAL EXAM due on 10/20/2021 HPV TESTING due on 03/05/2022 PAP TESTING due on 08/31/2022 COVID-19 VACCINE(5 - Booster for Pfizer series) due on 08/31/2022 INFLUENZA(1) due on 11/02/2021 HBA1C due on 11/10/2021 DIABETIC FOOT EXAM due on 03/28/2022 MAMMOGRAM due on 03/30/2022 DEPRESSION SCREENING due on 05/21/2022 LDL CHOLESTEROL due on 07/03/2022 SERUM CREATININE due on 07/03/2022 HEMOGLOBIN/HEMATOCRIT due on 07/03/2022 ANNUAL PCP TEAM CHRONIC DISEASE VISIT due on 10/20/2022 PNEUMOCOCCAL(4 - PPSV23 or PCV20) due on 11/07/2025 COLORECTAL CANCER SCREENING due on 09/13/2027 DTAP,TDAP,TD(3 - Td or Tdap) due on 12/31/2028 HEPATITIS B Completed HEPATITIS C SCREENING Completed HIV SCREENING Completed SHINGRIX VACCINE Completed HPV VACCINE Aged Out ASSESSMENT/PLAN: 1. Abnormal vaginal bleeding - ICD9: 623.8, ICD10: N93.9 (primary diagnosis) Hx of uterine and cervical cancer, hysterectomy in 1998. Sudden onset abnormal vaginal bleeding. STAT US abd/ trangsvaginal Blood work to check blood counts Fecal occult stool kit to rule out rectal bleeding vs vaginal. - COMP METABOLIC PANEL - CBC + DIFF - IRON + TIBC - FERRITIN BLD - US FEMALE PELVIS TRANSABD LTD - US FEMALE PELVIS TRANSVAG - US FEMALE PELVIS TRANSABD LTD - US FEMALE PELVIS TRANSVAG - FECAL OCCULT BLOOD TEST 2. Chronic edema - ICD9: 782.3, ICD10: R60.9 Stable. Well controlled. Refilled - TORSEMIDE 20 MG TABLET 3. Sleep disturbances - ICD9: 780.50, ICD10: G47.9 Stable. Well controlled. Refilled - TRAZODONE 100 MG TABLET 4. Acute otitis externa of right ear, unspecified type - ICD9: 380.10, ICD10: H60.501 Ear drops 4x/day. - OFLOXACIN 0.3 % EYE DROPS 5. Pelvic cramping - ICD9: 625.9, ICD10: R10.2 - Labs of CBC with Diff, CMP, Iron/TIBC, and Ferritin - Work up with Ultrasound transvaginal - [place] low residue diet - Treatment for constipation discussed RTO as needed to follow-up with PCP team. Prescription instructions reviewed with patient as applicable. Potential red flag symptoms discussed with the patient. Reviewed appropriate action plan to take if red flag symptoms occur. Patient agreeable to treatment plan. Jaci Lucero APRN.[facility] [address] [place] [address] documented in this encounter [facility] 10-12-2021 History of Present illness Narrative Images from the original note were not included. Primary Care Pharmacy Visit CC (Reason for Consult): Diabetes Goal: A1c < 8% Collaborating Provider: Dr. Hunt Last Provider Visit: 09/28/21 Christina Guerrier is a 66 year old female presenting for follow up visit by telephone. Patient consents to pharmacy collaborative practice agreement. Patient is presenting today for f/up pharmacotherapy management appointment for diabetes. At last PharmD visit on 09/07, Novolog was increased. In September patient had issues with cellulitis and went to ED. Saw PROPERTY MANAGEMENT COORDINATOR on 09/28 for ER f/up and no med changes made. Subjective: HPI: Overall feels things are going better with Bgs. Says AM readings are improved though this AM was 268 mg/dL and I have no idea why. FBGs usually in the 120s-160s. Evening Bgs tend to go up a lot. Current DM Medications: Insulin glargine (Lantus) 50 units BID Insulin aspart (Novolog) 22 units TIDAC GLYCEMIC CONTROL: Hypoglycemia: had BG drop to 90 mg/dL on Saturday evening, skipped a meal; corrected with milk and vanilla wafers; does get sweaty when BG is <100 mg/dL Hyperglycemia: has dry mouth and thirst all of the time; has fluid restriction from dialysis, sucks on ice chips Preventative Medications: On ODETTE/ARB: No On Statin: Yes DIET/EXERCISE/SOCIAL Hx: Drinking protein shakes every morning, has been more consistent with taking this daily Appetite is coming back Breakfast: protein shake Lunch: sandwich from fast food (yesterday had chicken sandwich) Dinner: yesterday had 2 steaks with mashed potatoes (1 T) and gravy and a spoonful of stovetop stuffing Snacks: popcorn (white cheddar) Beverages: fluid restriction, usually [place] Crush Zero, 1 can daily; chews ice MEDICATIONS: Pill bottles are not present Adherence: denies missed doses [facility] Affordability: no issues Diabetes supplies: [employer] Organization System: pill box ACTIVE PROBLEM LIST WOUND (NOT COMPLICATED) - OPEN 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 Osteoporosis Osteomalacia, Unspecified Celiac Disease Unspecified Vitamin D Deficiency Liver Replaced By Transplant (Hcc) Complications of Transplanted Liver (Hcc) Need for Prophylactic Immunotherapy Hypersplenism Raul (Obstructive Sleep Apnea) Summary T2dm (Type 2 Diabetes Mellitus) (Hcc) Hypertension Recurrent Cellulitis of Lower Leg Acquired Hypothyroidism Sandhya (Iron Deficiency Anemia) Iron Malabsorption Anemia of Chronic Kidney Failure, Stage 4 (Severe) (Hcc) Ckd (Chronic Kidney Disease) Stage 4, Gfr 15-29 Ml/Min (Hcc) Anemia in Stage 4 Chronic Kidney Disease (Hcc) Obesity, Class Iii, Bmi 40-49.9 (Morbid Obesity) (Hcc) Pain in Right Hip Cellulitis of Back Hx of Transfusion Thrombocytopenia, Secondary Lymphedema Grade II Diastolic Dysfunction Bilateral Lower Extremity Edema Sob (Shortness of Breath) On Exertion Encounter for Screening for Cardiovascular Disorders Primary Hypertension Abnormal Stress Test Cancer (Hcc) Krueger's Palsy Coronary Artery Disease Involving [place] Coronary Artery of [place] Heart Without Angina Pectoris Stable Angina (Hcc) Hospital Discharge Follow-Up PAST MEDICAL HISTORY Diagnosis Date Abdominal pain 12/21/2014 Diffuse abdominal pain x 6 days Worsened with palpation on LLQ and epigastric No diarrhea no vomiting no alcohol drink no sick contact no change in stool no melena Ddx: viral GI vs any intraabdominal pathology or infection in a setting of immunosuppressed patient Plan CT abd wo Levin culture Acute renal failure superimposed on stage 4 chronic kidney disease (HCC) 01/02/2020 Anemia Anemia in stage 4 chronic kidney disease (HCC) 12/17/2016 Anemia of chronic kidney failure, stage 4 (severe) (HCC) 12/11/2016 Anxiety Arthritis Krueger's palsy CAD (coronary artery disease) Cancer (HCC) uterine and cervical Celiac disease 2007 Cellulitis of back except buttock Cirrhosis of liver without mention of alcohol CKD (chronic kidney disease) Dialysis M/W/F [facility] COPD (chronic obstructive pulmonary disease) (HCC) Diabetes mellitus without mention of complication Diabetic polyneuropathy (HCC) 02/04/2017 Disorder of thyroid DVT (deep venous thrombosis) (HCC) Esophageal reflux Hammer toes, bilateral 11/30/2016 History of transfusion Hypertension Incisional hernia 12/30/2008 Liver replaced by transplant (HCC) 2008 - Cirrhosis s/p OLT 2008 - Cirrhosis 04/05 [facility] Plan: - Continue Tacrolimus 1.5 mg BID - daily Tacrolimus levels - Continue Otezla 30 mg BID Lymphedema RAUL (obstructive sleep apnea) does not use CPAP Other and unspecified hyperlipidemia Other lymphedema runs in family PMH - PAST MEDICAL HISTORY OF 1998 endometrial cancer, had complete hysterectomy Psoriasis and similar disorders [place]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 Use as directed. ACCU-CHEK MULTICLIX LANCET lancets TEST BLOOD SUGAR 4 TO 5 TIMES DAILY. apremilast (OTEZLA) 30 mg tablet Take 1 tablet by mouth once daily. Ascorbic Acid (VITAMIN C) 1,000 mg tablet Take 1,000 mg by mouth once daily. aspirin, enteric coated (ECOTRIN LOW STRENGTH) 81 mg EC tablet Take 1 tablet by mouth once daily. atorvastatin (LIPITOR) 10 mg tablet Take 1 tablet by mouth once daily. B Complex-Vitamin C-Folic Acid (RENAL VITAMIN) 0.8 mg tab Take 1 tablet by mouth once daily. BIOTIN ORAL Take 1 tablet by mouth once daily. blood sugar diagnostic (BLOOD GLUCOSE TEST) test strip Test blood sugar(s) 5 times daily. Dx: Type 2 DM - Controlled E11.9 Insulin: Yes Blood-Glucose Meter monitoring kit Glucose Meter of Choice - Kit - Dx: Type 2 DM - Uncontrolled E11.65 with hypoglycemia Insulin: yes Blood-Glucose Meter,Continuous (DEXCOM G6 CHIP BIN OPERATOR) [facility] to check blood sugar at least four (4) times daily. Blood-Glucose Sensor (DEXCOM G6 SENSOR) brady Apply new sensor every ten (10) days to abdomen. Blood-Glucose Transmitter (DEXCOM G6 TRANSMITTER) brady Apply new transmitter every 90 days. Clean transmitter with an alcohol swab with each sensor change. carvedilol (COREG) 12.5 mg tablet Take 1 tablet by mouth twice daily. Patient taking differently: Take 12.5 mg by mouth twice daily. On mon, wed and fri only takes once daily cholecalciferol (VITAMIN D3) 1,000 unit tab tablet Take 1,000 Units by mouth twice daily. clopidogrel (PLAVIX) 75 mg tablet Take 1 tablet by mouth once daily. colchicine 0.6 mg tablet Take 0.5 tablet by mouth once daily for 14 days insulin aspart U-100 (NOVOLOG U-100 INSULIN ASPART) 100 unit/mL Inject 22 Units subcutaneously three times daily before meals. Type 2 diabetes mellitus with microalbuminuria, with long-term current use of insulin ([facility]) - Primary E11.29, R80.9, Z79.4 insulin glargine (LANTUS U-100 INSULIN) 100 unit/mL injection Inject 50 Units subcutaneously twice daily. Via Syringe Insulin Syringe-Needle U-100 0.5 mL 31 gauge x 5/16 Use to inject insulin 5 times daily as directed. levothyroxine (LEVOXYL) 88 mcg tablet Take 1 tablet by mouth once daily. Take on empty stomach. For Thyroid melatonin 5 mg tablet Take 6 tablets by mouth daily at bedtime. nitroglycerin sublingual (NITROQUICK) 0.4 mg SL tablet Dissolve 1 tablet under the tongue every 5 minutes as needed for chest pain. pantoprazole DR (PROTONIX) 40 mg tablet Take 1 tablet by mouth once daily. As needed for upset stomach Patient taking differently: Take 40 mg by mouth twice daily. As needed for upset stomach rOPINIRole (REQUIP) 1 mg tablet Take one tab in the morning and 2 in the evening sertraline (ZOLOFT) 50 mg tablet Take 1 tablet by mouth once daily. sevelamer carbonate (RENVELA) 800 mg tablet Take by mouth. Taking 2 tablet with breakfast, 2 tablet with lunch, and 2 tablets with dinner as directed. tacrolimus IR (PROGRAF) 0.5 mg capsule TAKE 1 CAPSULE TWICE DAILY torsemide (DEMADEX) 20 mg tablet Take 2 tablets by mouth once daily. Patient taking differently: Take 60 mg by mouth once daily. traZODone (DESYREL) 100 mg tablet Take 2 tablets by mouth daily at bedtime. triamcinolone acetonide (KENALOG) 0.1 % ointment Apply to affected area twice daily. vitamin B complex (B COMPLEX-VITAMIN B12 ORAL) Take 5,000 mcg by mouth once daily. Objective: Exam: Last 3 Encounter BP Readings: Date: BP: 09/28/2021 140/66 08/31/2021 130/60 08/25/2021 134/62 Wt: 112.9 kg (249 lb) BMI: 41.44 kg/(m^2) LABS: Reviewed Lab Results Component Value Date HBA1C 7.3 05/10/2021 HBA1C 7.2 11/15/2020 HBA1C 6.6 05/05/2020 HBA1C 8.0 01/02/2020 CMP: Glucose 159 07/03/2021 BUN 57 07/03/2021 Creatinine 8.36 07/03/2021 Sodium 134 07/03/2021 Potassium 4.8 07/03/2021 Chloride 95 07/03/2021 CO2 Content, Venous 25 07/03/2021 Protein, Total 6.4 07/03/2021 Albumin 3.6 07/03/2021 Calcium 9.4 07/03/2021 Alkaline Phosphatase 114 07/03/2021 Bilirubin, Total 0.3 07/03/2021 AST 23 07/03/2021 ALT 31 07/03/2021 ESRD on dialysis on [facility] Liver transplant list Lab Results Component Value Date CHOL 141 07/03/2021 CHOL 145 04/12/2021 LDL 64 07/03/2021 LDL 43 04/12/2021 HDL 29 07/03/2021 HDL 32 04/12/2021 TG 242 07/03/2021 TG 349 04/12/2021 The 10-year ASCVD risk score (Epifanio MONROY Jr., et al., 2013) is: 16.4% Values used to calculate the score: Age: 66 years Sex: Female Is Non- : No Diabetic: Yes Tobacco smoker: No Systolic Blood Pressure: 140 mmHg Is BP treated: Yes HDL Cholesterol: 29 mg/dL Total Cholesterol: 141 mg/dL Albumin/Creat Ratio (mg/g) Date Value 05/19/2020 254 (H) PHARMACOTHERAPY ASSESSMENT/PLAN: 1. Type 2 diabetes mellitus with microalbuminuria, with long-term current use of insulin ([facility]) - ICD9: 250.40, 791.0, V58.67, ICD10: E11.29, R80.9, Z79.4 A1c goal < 8%; controlled per last A1c (7.3%) though could be falsely low due to HD; no issues with lows; CGM report inadequate for interpretation due to missing data, though pieces of report suggest frequent elevated Bgs in the afternoon/evening; will increase lunchtime insulin dose, encouraged some dietary changes, and f/up in several weeks INCREASE lunchtime Novolog to 26 units (new regimen Novolog 22-26-22 units TIDAC) CONTINUE Lantus 50 units BID Encouraged to stop eating fastfood at lunch; encouraged keeping food diary to see how certain foods impact BG --> may want to consider carb counting or SSI in future Advised to only have phone hooked up to Dexcom sensor to improve data capture (currently has phone and reader) HbA1c: due now Patient is scheduled to see PROPERTY MANAGEMENT COORDINATOR on 01/04. Patient to have PharmD f/u on 11/02. Patient verbalized understanding of instructions. Kim La PharmD, BCPS Primary Care Clinical Pharmacist The majority of the pharmacy visit (> 50%) was spent counseling and/or coordinating care for the patient. interaction: telephonic time was 28 minutes. documented in this encounter [facility] 10-09-2021 History of Present illness Narrative [facility] CDM TELEPHONIC OUTREACH Provider Action/FYI: Doing well, no changes or concerns Contact made with patient: Yes Patient identified by name and . Discussed care with patient It s nice talking to you again. As a reminder, this is our bi-weekly check-in where I will be asking you questions about your health. This will only take a few minutes of your time. Is this a good time? Yes Symptoms What Chronic Disease(s) does the patient have: CKD Do you check your blood pressures at home? Yes, Enter readings: better then it's been Do you have new or worse shortness of breath with activity? No Do you feel like you are dehydrated for any reason, including not being able to eat or drink normally, or having less urine/much darker urine than normal for you? No Do you check your daily weight at home? Yes, Have you noticed a sudden gain in weight greater than three pounds in a day or three pounds in a week? No Are you having any other symptoms that your PCP needs to know about? No Symptom Escalation The patient required an escalation for symptom(s)? No Medications Do you have any questions about taking your medication or which medications you should be on? No Do you need any medication refills at this time, including any of the medications you might take only when needed? No Social We would like to make sure you have what you need so that your basic needs are met- including your personal safety, food, housing and medications? Would you like to speak with a social work steamer blocker to help give you support for any of these needs? No It can be normal to feel anxious or down during a time like this. Would you like to talk to a mental health professional about how you have been feeling? No Closing Thank you for taking the time to talk with me today. We want to work with you to ensure that we are keeping your medical condition(s) well-controlled and to keep you healthy and out of the doctor's office or hospital. It s also not too late for me to sign you up for automated weekly questionnaires through [employer]. This is an easy way for us to stay connected each week. Are you interested? No, I understand. We can always sign you up in the future if you change your mind. Just as a reminder, will continue to call you every other week to check in on your health. Our calls should take 10-15 minutes or less. Remember, if you have concerns in between our calls, please call your PCP's office right away. Thank you. Enter next patient outreach date for two weeks on the same day of the week as today in the Track Pt Outreach and End outreach. documented in this encounter [facility] 09-28-2021 Miscellaneous Notes Patient stopped by office today due to issues with Dexcom connecting with PharmD. Patient has CGM hooked up to both a reader and iPhone. Appears that both are receiving readings though it appears that the Dexcom G6 heather is not connecting/syncing with the Dexcom Clarity heather on her phone. Advised patient to call customer service to discuss the issue to see if they can assist and to also ask if there is any issue with having both a phone and reader connected to the transmitter/sensor. Also advised to have patient manually download the reader to DexAtraverdaarity online prior to next PharmD visit. Kim La PharmD, [facility] Primary Care Clinical Pharmacist Cathryn LEA [facility] documented in this encounter [facility] 09-28-2021 History of Present illness Narrative CC: Patient presents with: Recheck: MRI follow up HPI Christina Guerrier is a 66 year old female who presents today for MRI follow up. Had cellulitis of the RLE with large mass to right thigh. Finished treatment for this but mass to right thigh continued to be large and tender. US completed recommending MRI. MRI showing soft tissue edema possibly cellulitis versus fat necrosis. Patient reports improvement to Lump on thigh and reported one to LUE. They are smaller and not tender. Denies fever, pain, edema, or any other current concerns. Does report she went to [facility] ER for blood sugar greater than 400 on 09/11. Did take insulin on way to ER and at ER, glucose was in 200s, had lab work and chest xray was unremarkable. Has been randomly checking finger stick blood sugar and comparing to dexcom which is usually accurate. DIABETES MELLITUS: Ms. Guerrier denies excessive thirst or increased frequency of urination, chest pain or dyspnea , numbness, tingling or pain in extremities, new or unusual visual symptoms, low sugar/hypoglycemic reactions, weight loss/gain, lightheadedness/dizziness and bowel changes/loose stools. Follows a diabetic diet most of the time. She is compliant with medication(s) and is tolerating med(s) without any side effects. She reports checking her glucose on a CGM schedule with sugars in the 200s range. Patient's last HgA1C was Hemoglobin A1C (%) Date Value 05/10/2021 7.3 11/15/2020 7.2 05/05/2020 6.6 ) Sees clinical pharmacist for glucose control and has an upcoming appointment. REVIEW OF SYSTEMS General: no fevers, no chills, no night sweats, no recurrent infections, no change in appetite, no change in energy and no significant changes in weight Respiratory: no cough, no wheezing, no shortness of breath, no hemoptysis Cardiovascular: no chest pain, no chest pressure, no palpitations and no swelling GI: No nausea, vomiting, or diarrhea Endocrine: no fatigue, no cold intolerance, no heat intolerance, no polyuria, no polyphagia and no polydipsia Neurologic: No headache, weakness, numbness, tingling, dizziness, syncope. PAST MEDICAL HISTORY Diagnosis Date Abdominal pain 12/21/2014 Diffuse abdominal pain x 6 days Worsened with palpation on LLQ and epigastric No diarrhea no vomiting no alcohol drink no sick contact no change in stool no melena Ddx: viral GI vs any intraabdominal pathology or infection in a setting of immunosuppressed patient Plan CT abd wo Levin culture Acute renal failure superimposed on stage 4 chronic kidney disease (HCC) 01/02/2020 Anemia Anemia in stage 4 chronic kidney disease (HCC) 12/17/2016 Anemia of chronic kidney failure, stage 4 (severe) (HCC) 12/11/2016 Anxiety Arthritis Krueger's palsy CAD (coronary artery disease) Cancer (HCC) uterine and cervical Celiac disease 2007 Cellulitis of back except buttock Cirrhosis of liver without mention of alcohol CKD (chronic kidney disease) Dialysis M/W/F [facility] COPD (chronic obstructive pulmonary disease) (HCC) Diabetes mellitus without mention of complication Diabetic polyneuropathy (HCC) 02/04/2017 Disorder of thyroid DVT (deep venous thrombosis) (HCC) Esophageal reflux Hammer toes, bilateral 11/30/2016 History of transfusion Hypertension Incisional hernia 12/30/2008 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 Plan: - Continue Tacrolimus 1.5 mg BID - daily Tacrolimus levels - Continue Otezla 30 mg BID Lymphedema RAUL (obstructive sleep apnea) does not use CPAP Other and unspecified hyperlipidemia Other lymphedema runs in family PMH - PAST MEDICAL HISTORY OF 1998 endometrial cancer, had complete hysterectomy Psoriasis and similar disorders 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 No colitis. Poor rectal sphincter tone. Referred to [facility]. COLONOSCOPY FLX DX W/COLLJ SPEC WHEN PFRMD 11/29/2011 [facility] /Dr. Anderson COLONOSCOPY FLX DX W/COLLJ SPEC WHEN PFRMD 07/2011 Janneth COLONOSCOPY FLX DX W/COLLJ SPEC WHEN PFRMD 09/2011 Dr. Lagunas [facility] ESOPHAGOGASTRODUODENOSCOPY TRANSORAL DIAGNOSTIC 12/2009 [facility] Janneth ESOPHAGOGASTRODUODENOSCOPY TRANSORAL DIAGNOSTIC 12/2010 [facility] Janneth FISTULA HERNIA REPAIR HX 12/2008 incisional hernia repair LVR ALTRNSPLJ ORTHOTOPIC PRTL/WHL DON ANY AGE 0507/2008 PAST SURGICAL HISTORY OF 1989 left ovary/cyst removal PAST SURGICAL HISTORY OF 1974 all teeth removed SKIN BIOPSY HX TOTAL ABDOMINAL HYSTERECT W/WO RMVL TUBE OVARY 1998 Hysterectomy, FRANSISCA -for endometrial cancer VAGINAL HYSTERECTOMY VASCULAR SURGERY PROCEDURE ALLERGIES Clindamycin, Buspar [Buspirone Hcl], Duricef [Cefadroxil], Keflex [Cephalexin], Lisinopril, Losartan, Naprosyn [Naproxen], Niaspan [Niacin], Sulfa (Sulfonamide Antibiotics), and Unasyn [Ampicillin-Sulbactam] MEDICATIONS traZODone (DESYREL) 100 mg tablet Take 2 tablets by mouth daily at bedtime. blood sugar diagnostic (BLOOD GLUCOSE TEST) test strip Test blood sugar(s) 5 times daily. Dx: Type 2 DM - Controlled E11.9 Insulin: Yes insulin aspart U-100 (NOVOLOG U-100 INSULIN ASPART) 100 unit/mL Inject 22 Units subcutaneously three times daily before meals. Type 2 diabetes mellitus with microalbuminuria, with long-term current use of insulin (HCC) - Primary E11.29, R80.9, Z79.4 tacrolimus IR (PROGRAF) 0.5 mg capsule TAKE 1 CAPSULE TWICE DAILY aspirin, enteric coated (ECOTRIN LOW STRENGTH) 81 mg EC tablet Take 1 tablet by mouth once daily. Blood-Glucose Transmitter (DEXCOM G6 TRANSMITTER) brady Apply new transmitter every 90 days. Clean transmitter with an alcohol swab with each sensor change. Blood-Glucose Meter,Continuous (DEXCOM G6 CHIP BIN OPERATOR) [facility] [place] to check blood sugar at least four (4) times daily. Blood-Glucose Sensor (DEXCOM G6 SENSOR) brady Apply new sensor every ten (10) days to abdomen. triamcinolone acetonide (KENALOG) 0.1 % ointment Apply to affected area twice daily. melatonin 5 mg tablet Take 6 tablets by mouth daily at bedtime. BIOTIN ORAL Take 1 tablet by mouth once daily. Insulin Syringe-Needle U-100 0.5 mL 31 gauge x 5/16 Use to inject insulin 5 times daily as directed. insulin glargine (LANTUS U-100 INSULIN) 100 unit/mL injection Inject 50 Units subcutaneously twice daily. Via Syringe colchicine 0.6 mg tablet Take 0.5 tablet by mouth once daily for 14 days clopidogrel (PLAVIX) 75 mg tablet Take 1 tablet by mouth once daily. nitroglycerin sublingual (NITROQUICK) 0.4 mg SL tablet Dissolve 1 tablet under the tongue every 5 minutes as needed for chest pain. apremilast (OTEZLA) 30 mg tablet Take 1 tablet by mouth once daily. atorvastatin (LIPITOR) 10 mg tablet Take 1 tablet by mouth once daily. carvedilol (COREG) 12.5 mg tablet Take 1 tablet by mouth twice daily. levothyroxine (LEVOXYL) 88 mcg tablet Take 1 tablet by mouth once daily. Take on empty stomach. For Thyroid pantoprazole DR (PROTONIX) 40 mg tablet Take 1 tablet by mouth once daily. As needed for upset stomach rOPINIRole (REQUIP) 1 mg tablet Take one tab in the morning and 2 in the evening sertraline (ZOLOFT) 50 mg tablet Take 1 tablet by mouth once daily. torsemide (DEMADEX) 20 mg tablet Take 2 tablets by mouth once daily. sevelamer carbonate (RENVELA) 800 mg tablet Take by mouth. Taking 2 tablet with breakfast, 2 tablet with lunch, and 2 tablets with dinner as directed. B Complex-Vitamin C-Folic Acid (RENAL VITAMIN) 0.8 mg tab Take 1 tablet by mouth once daily. Blood-Glucose Meter monitoring kit Glucose Meter of Choice - Kit - Dx: Type 2 DM - Uncontrolled E11.65 with hypoglycemia Insulin: yes cholecalciferol (VITAMIN D3) 1,000 unit tab tablet Take 1,000 Units by mouth twice daily. vitamin B complex (B COMPLEX-VITAMIN B12 ORAL) Take 5,000 mcg by mouth once daily. Ascorbic Acid (VITAMIN C) 1,000 mg tablet Take 1,000 mg by mouth once daily. ACCU-CHEK MULTICLIX LANCET lancets TEST BLOOD SUGAR 4 TO 5 TIMES DAILY. + Nebulizer Supplies Nebulizer, Mask, & O2 Tubing. Use as directed. FAMILY HISTORY Problem Relation Age of Onset Cancer Father age 73 lung CA Stroke Father Ischemic Heart Disease Father [place] age 70s Diabetes Mother age 76 other (Dementia) Mother other (CHF) Mother other (Lymphedema) Mother other (renal failure) Mother Psoriasis Brother other (cirrhosis) Brother from aneurysm at age 38 other (psoriasis) Brother Social History Tobacco Use Smoking status: Passive Smoke Exposure - Never Smoker Smokeless tobacco: Never Used Tobacco comment: Parents both smoked in childhood home. No household ETS since. Vaping Use Vaping Use: Never used Substance Use Topics Alcohol use: No Drug use: No PHYSICAL EXAM BP 140/66 Pulse 72 Resp 16 General Appearance: well appearing, in no acute distress, alert Skin: Skin color, texture, turgor normal for age; Eyes: conjunctiva pink and moist, no icterus, sclera white, non-injected Lungs: Lungs clear to auscultation. No wheezing, rhonchi, rales. Heart: RRR without murmur, gallop, or rubs. No ectopy Extremities: No deformities, edema, skin discoloration, clubbing or cyanosis. Good capillary refill. Lump to right thigh much smaller in size, soft, without redness, and non tender. Small lump to LUE that is also wihtout redness and non tender. Health maintenance reviewed with patient: BP CONTROLLED (<130/80) Never done DILATED RETINAL EXAM due on 10/20/2021 HPV TESTING due on 03/05/2022 PAP TESTING due on 08/31/2022 COVID-19 VACCINE(5 - Booster for Pfizer series) due on 08/31/2022 INFLUENZA(1) due on 11/02/2021 HBA1C due on 11/10/2021 DIABETIC FOOT EXAM due on 03/28/2022 MAMMOGRAM due on 03/30/2022 DEPRESSION SCREENING due on 05/21/2022 LDL CHOLESTEROL due on 07/03/2022 SERUM CREATININE due on 07/03/2022 HEMOGLOBIN/HEMATOCRIT due on 07/03/2022 ANNUAL PCP TEAM CHRONIC DISEASE VISIT due on 08/31/2022 PNEUMOCOCCAL(4 - PPSV23 or PCV20) due on 11/07/2025 COLORECTAL CANCER SCREENING due on 09/13/2027 DTAP,TDAP,TD(3 - Td or Tdap) due on 12/31/2028 HEPATITIS B Completed HEPATITIS C SCREENING Completed HIV SCREENING Completed SHINGRIX VACCINE Completed HPV VACCINE Aged Out DATA REVIEWED: Outside chart from [facility] reviewed. ASSESSMENT/PLAN: 1. Lump of right thigh - ICD9: 782.2, ICD10: R22.41 (primary diagnosis) - improving and almost resolved. Will continue to monitor at this time, no signs of infection - and recent CT of Abdomen showed a normal pancreas. 2. Type 2 diabetes mellitus with hyperosmolar coma, with long-term current use of insulin (HCC) - ICD9: 250.20, V58.67, ICD10: E11.01, Z79.4 improved control - Continue current medications - Blood glucose monitoring on a continuous glucose monitor schedule - BP goal of <130/80 - LDL goal of <100 Prescription instructions reviewed with patient as applicable. Potential red flag symptoms discussed with the patient. Reviewed appropriate action plan to take if red flag symptoms occur. Patient agreeable to treatment plan. Silva Plasencia APRN.CNP documented in this encounter [facility] 09-26-2021 Miscellaneous Notes ERMEDIOS: 08/31/2021 Last refill: 04/19/2021 QTY: 60 Refills: 5 Patient's request for medication is as follows: Pending Prescriptions Disp Refills TRAZODONE 100 MG TABLET 60 tablet 5 Sig: Take 2 tablets by mouth daily at bedtime. JHON: No Please approve the above prescription(s) to electronically send to pharmacy. Jaden Yadav Ma documented in this encounter [facility] 09-21-2021 History of Present illness Narrative Radiology Service Progress Note DATE OF SERVICE: September 21, 2021 TIME: 10:49 AM PATIENT IDENTITY VERIFICATION COMPLETED USING TWO (2) STANDARD IDENTIFIERS: Name and Date of confirmed by patient verbally. FALL SCREENING: Has the patient had 2 falls in the last year or 1 fall with injury or currently using an Ambulatory Assistive Device (Walker, Cane, Wheelchair, Crutches, etc.)? No PATIENT GENDER DATA: Female. status: : No status: NO. PATIENT RELEVANT IMPLANT DATA REVIEWED: Yes ALLERGIES: Reviewed and unchanged CONTRAST ALLERGY: NO. EXAM: MRI - CONTRAST TYPE: GROUP II PERIPHERAL IV DATA: Ambulatory: A peripheral IV was started in the Right antecubital site with a Angio cath: 22 gauge. RADIOLOGY DEPARTMENT: MR; Exam(s) Completed: Lower MSK: Femur, right SIGNATURE: RT Godwin(R) PATIENT NAME: Christina Guerrier DATE: September 21, 2021 TIME: 10:49 AM documented in this encounter [facility] 09-11-2021 Miscellaneous Notes Reason for Call: elevated blood sugars this evening (Dexcom read 400 and now reads :high multiple times, slight nausea Has taken 44 extra units Novolog with no results Asking if related to getting second shingles vaccine earlier today Outcome: Dr Garces paged and recommends taking finger stick if able (patient says strips are outdated and reads error ), okay to take another 22 units Novolog if feeling okay and to drink up to fluid limit since dialysis patient dialyzed earlier today (patient says she never drinks up to her limit due to tendency to retain too much and 2.7 over dry weight with dialysis today) and otherwise go to ED Patient notified and will have family take her to [facility] Reason for Disposition Blood glucose > 400 mg/dL (22.2 mmol/L) Answer Assessment - Initial Assessment Questions 1. BLOOD GLUCOSE:400 - high now 2. ONSET: Elevated since 10 pm, for the past hour 3. USUAL RANGE: usually in low 200's 4. KETONES: N/A 5. TYPE 1 or 2: Type 2 6. INSULIN: Lantus as long acting (50 units bid), Novolog with meals, sliding scale (22 units with dinner about 3 hours ago), 22 units additionally about 20 minutes ago and 22 units about 2 hours ago (has not taken hs Lantus yet) 7. DIABETES PILLS: N/A 8. OTHER SYMPTOMS: nausea 9. : N/A Protocols used: DIABETES - HIGH BLOOD [id number] documented in this encounter [facility] 09-11-2021 History of Present illness Narrative [facility] CDM Enrollment Provider Action/FYI: Returned call Patient referred by: C Osei Contact made with patient: Yes - Patient identified by name and . Discussed care with patient Tierney this is Roxie Palmer RN and I am calling from Jame Hunt MD office at the [facility]. I am a RN Model And Dye Person with our [facility] Chronic Disease Management program. Jame Hunt MD wanted me to reach out to help you manage your health at home. Our goal is to keep you well at home. We want to help you manage your chronic disease by providing a safety net of resources around you, getting you the care you need in a timely manner, and hopefully keep you out of the ED and hospital. I will send you a few questions once a week through your [employer] account. It will automatically show up for you to complete. There are simple questions that will help us identify if you have any concerns or symptoms and I will call you to help get what you need. We will be able to connect you, review your symptoms, do an on demand visit, or communicate with Jame Hunt MD if needed. I am going to sign you up for the program now. Enrollment Questions: Let's get you enrolled in the program. Yes, Do you have regular access to a computer/smartphone? No, Are you offering patient a biweekly phone call? yes/no: Yes. Goal Setting: I would like to take some time today to discuss your personal health goals. Patient does not have a goal. We will review during our next conversations to help support you. Most people know what to do to become healthier, yet struggle to put it into action on their own.It can be hard to maintain a healthy lifestyle, especially when life is so stressful. Can we connect you with a [facility] Health Courier Delivery Driver to find a program that could help you meet your goals? No Closing: Patient accepts telephonic outreach Thank you for your time today. I am excited to work together in managing your health! I will check back within in two weeks to see how things are going. If questions or concerns arise between phone calls, please reach out to your PCP s office. (Place in active status for [facility] and place name in care team and update next patient outreach data to next business day two weeks from today s date) [facility] CDM Enrollment Provider Action/FYI: ckd voicemail Patient referred by: [facility] Osei Contact made with patient: No - Left Message: Hi my name is Roxie Palmer RN and I am calling from the [facility] on behalf of your PCP, Jame Hunt MD. We are excited to share with you a new program to help you manage your health. Please call me back at [phone] between the hours of 8am-5pm Saturday-Saturday. You will receive another phone call from me within the next two business days. I hope you can take the time to speak with me. (Keep encounter open and attempt 2nd outreach in two business days from today) END OUTREACH documented in this encounter [facility] 09-07-2021 Miscellaneous Notes Images from the original note were not included. Approved Prior authorization approved Payer: [employer] [phone] EDUIN Case: [id number], Status: Approved, Coverage Starts on: 09/07/2021 1:53:39 PM, Coverage Ends on: 09/07/2021 1:53:39 PM. Questions? Contact . Approval Details Authorized from September 07, 2021 to September 07, 2021 Electronic PA completed for insulin aspart unit(s) 100(novolog U100 insulin aspart) documented in this encounter [facility] 09-07-2021 Miscellaneous Notes Noted. The following approved medication requests have been transmitted electronically. Signed Prescriptions Disp Refills insulin aspart U-100 (NOVOLOG U-100 INSULIN ASPART) 100 unit/mL 6 Vial 3 Sig: Inject 22 Units subcutaneously three times daily before meals. Type 2 diabetes mellitus with microalbuminuria, with long-term current use of insulin ([facility]) - Primary E11.29, R80.9, Z79.4 JHON: No Authorizing Provider: JAME HUNT Ordering User: KIM LA RPh [facility] pharmacy calling with request for new script for Novolog Insulin with diagnosis code on script for Medicare billing. Amadeo Mar RN documented in this encounter [facility] 09-07-2021 History of Present illness Narrative Primary Care Pharmacy Visit CC (Reason for Consult): Diabetes Goal: A1c < 8% Collaborating Provider: Dr. Hunt Last Provider Visit: 08/31/21 Christina Guerrier is a 66 year old female presenting for follow up visit in person. Patient consents to pharmacy collaborative practice agreement. . Patient is presenting today for f/up pharmacotherapy management appointment for diabetes. At last PharmD visit on 06/08, insulin doses were increased and Dexcom was ordered. On 08/14 patient was evaluated for cellulitis on right leg. At last PROPERTY MANAGEMENT COORDINATOR appt, cellulitis appeared to be resolved but patient still had a tender lump in leg - US found it to likely be a hematoma. Subjective: HPI: Patient reports her sugars are going up a lot. Noticing a lot of alerts with the Dexcom, always high. No lows. BGs can go high regardless of meals. Has compared readings to fingerstick and readings are similar. Says AM BGs usually good but readings go up later in the day. She has self-increased her Novolog to help with the higher readings. She prefers vials to pens. Not feeling sweaty or dizzy. Doesn't have great energy. Has minimal urination (on dialysis 3 days/week). Has a fluid restriction, has a lot of dry mouth. Current DM Medications: Insulin glargine (Lantus) 50 units BID Insulin aspart (Novolog) 17 units TIDAC (taking 20 units with meals) Current HTN Medications: Carvedilol 12.5mg BID Torsemide 20mg tabs - 40mg daily GLYCEMIC CONTROL: Unable to download CGM report due to technical issues. BG readings in office was 233 mg/dL, had been steadily increasing since this morning Preventative Medications: On ODETTE/ARB: No On Statin: Yes ROS: Patient denies CP, SOB, VIDES, blurred vision, dizziness or lightheadedness Patient denies symptoms of hypoglycemia (sweating, anxiety, palpitations, hunger, and tremor) Patient denies symptoms of hyperglycemia (polyuria, polydipsia, polyphagia) Patient denies potential medication adverse effects DIET/EXERCISE/SOCIAL Hx: Breakfast: has protein shake every morning for breakfast Lunch: fast food sandwich Dinner: last night had roast with mashed potatoes and noodles (ate little of the carbs) MEDICATIONS: Pill bottles are not present Adherence: denies missed doses Pharmacy: [facility] Rx coverage: [facility] Medicare + [facility] Affordability: no issues Diabetes supplies: [employer] System: pill box ACTIVE PROBLEM LIST WOUND (NOT COMPLICATED) - OPEN 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 Osteoporosis Osteomalacia, Unspecified Celiac Disease Unspecified Vitamin D Deficiency Liver Replaced By Transplant (Hcc) Complications of Transplanted Liver (Hcc) Need for Prophylactic Immunotherapy Hypersplenism Raul (Obstructive Sleep Apnea) Summary T2dm (Type 2 Diabetes Mellitus) (Hcc) Hypertension Recurrent Cellulitis of Lower Leg Acquired Hypothyroidism Sandhya (Iron Deficiency Anemia) Iron Malabsorption Anemia of Chronic Kidney Failure, Stage 4 (Severe) (Hcc) Ckd (Chronic Kidney Disease) Stage 4, Gfr 15-29 Ml/Min (Hcc) Anemia in Stage 4 Chronic Kidney Disease (Hcc) Obesity, Class Iii, Bmi 40-49.9 (Morbid Obesity) (Hcc) Pain in Right Hip Cellulitis of Back Hx of Transfusion Thrombocytopenia, Secondary Lymphedema Grade II Diastolic Dysfunction Bilateral Lower Extremity Edema Sob (Shortness of Breath) On Exertion Encounter for Screening for Cardiovascular Disorders Primary Hypertension Abnormal Stress Test Cancer (Hcc) Krueger's Palsy Coronary Artery Disease Involving [place] Coronary Artery of [place] Heart Without Angina Pectoris Stable Angina (Hcc) Hospital Discharge Follow-Up PAST MEDICAL HISTORY Diagnosis Date Abdominal pain 12/21/2014 Diffuse abdominal pain x 6 days Worsened with palpation on LLQ and epigastric No diarrhea no vomiting no alcohol drink no sick contact no change in stool no melena Ddx: viral GI vs any intraabdominal pathology or infection in a setting of immunosuppressed patient Plan CT abd wo Levin culture Acute renal failure superimposed on stage 4 chronic kidney disease (HCC) 01/02/2020 Anemia Anemia in stage 4 chronic kidney disease (HCC) 12/17/2016 Anemia of chronic kidney failure, stage 4 (severe) (HCC) 12/11/2016 Anxiety Arthritis Krueger's palsy CAD (coronary artery disease) Cancer (HCC) uterine and cervical Celiac disease 2007 Cellulitis of back except buttock Cirrhosis of liver without mention of alcohol CKD (chronic kidney disease) Dialysis M/W/F [facility] COPD (chronic obstructive pulmonary disease) (HCC) Diabetes mellitus without mention of complication Diabetic polyneuropathy (HCC) 02/04/2017 Disorder of thyroid DVT (deep venous thrombosis) (HCC) Esophageal reflux Hammer toes, bilateral 11/30/2016 History of transfusion Hypertension Incisional hernia 12/30/2008 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 Plan: - Continue Tacrolimus 1.5 mg BID - daily Tacrolimus levels - Continue Otezla 30 mg BID Lymphedema RAUL (obstructive sleep apnea) does not use CPAP Other and unspecified hyperlipidemia Other lymphedema runs in family PMH - PAST MEDICAL HISTORY OF 1999 endometrial cancer, had complete hysterectomy Psoriasis and similar disorders Skip Vegas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 ALLERGIES Allergen Reactions Clindamycin Vomiting Buspar [Buspirone H* Hives Duricef [Cefadroxil] Hives Keflex [Cephalexin] Rash rash but unsure if it is from keflex Lisinopril Swelling Losartan Swelling Naprosyn [Naproxen] Other: See Comments lowers platelets Niaspan [Niacin] Hives Sulfa (Sulfonamide * Hives Unasyn [Ampicillin-* Hives Medication List Medication Directions Comments Action/Plan + Nebulizer Supplies Nebulizer, Mask, & O2 Tubing. Use as directed. ACCU-CHEK MULTICLIX LANCET lancets TEST BLOOD SUGAR 4 TO 5 TIMES DAILY. apremilast (OTEZLA) 30 mg tablet Take 1 tablet by mouth once daily. Ascorbic Acid (VITAMIN C) 1,000 mg tablet Take 1,000 mg by mouth once daily. aspirin, enteric coated (ECOTRIN LOW STRENGTH) 81 mg EC tablet Take 1 tablet by mouth once daily. atorvastatin (LIPITOR) 10 mg tablet Take 1 tablet by mouth once daily. B Complex-Vitamin C-Folic Acid (RENAL VITAMIN) 0.8 mg tab Take 1 tablet by mouth once daily. BIOTIN ORAL Take 1 tablet by mouth once daily. blood sugar diagnostic (BLOOD GLUCOSE TEST) test strip Test blood sugar(s) 5 times daily. Dx: Type 2 DM - Controlled E11.9 Insulin: Yes Blood-Glucose Meter monitoring kit Glucose Meter of Choice - Kit - Dx: Type 2 DM - Uncontrolled E11.65 with hypoglycemia Insulin: yes Blood-Glucose Meter,Continuous (DEXCOM G6 CHIP BIN OPERATOR) [facility] [place] to check blood sugar at least four (4) times daily. Blood-Glucose Sensor (DEXCOM G6 SENSOR) brady Apply new sensor every ten (10) days to abdomen. Blood-Glucose Transmitter (DEXCOM G6 TRANSMITTER) brady Apply new transmitter every 90 days. Clean transmitter with an alcohol swab with each sensor change. carvedilol (COREG) 12.5 mg tablet Take 1 tablet by mouth twice daily. Patient taking differently: Take 12.5 mg by mouth twice daily. On mon, wed and fri only takes once daily cholecalciferol (VITAMIN D3) 1,000 unit tab tablet Take 1,000 Units by mouth twice daily. clopidogrel (PLAVIX) 75 mg tablet Take 1 tablet by mouth once daily. colchicine 0.6 mg tablet Take 0.5 tablet by mouth once daily for 14 days Has for PRN use; hasn't used in 4-5 months Discontinued: 08/31/2021 9:09 AM insulin aspart U-100 (NOVOLOG FLEXPEN U-100 INSULIN) 100 unit/mL (3 mL) Inject 17 Units subcutaneously three times daily before meals. insulin glargine (LANTUS U-100 INSULIN) 100 unit/mL injection Inject 50 Units subcutaneously twice daily. Via Syringe Insulin Syringe-Needle U-100 0.5 mL 31 gauge x 5/16 Use to inject insulin 5 times daily as directed. levothyroxine (LEVOXYL) 88 mcg tablet Take 1 tablet by mouth once daily. Take on empty stomach. For Thyroid melatonin 5 mg tablet Take 6 tablets by mouth daily at bedtime. nitroglycerin sublingual (NITROQUICK) 0.4 mg SL tablet Dissolve 1 tablet under the tongue every 5 minutes as needed for chest pain. pantoprazole DR (PROTONIX) 40 mg tablet Take 1 tablet by mouth once daily. As needed for upset stomach Patient taking differently: Take 40 mg by mouth twice daily. As needed for upset stomach rOPINIRole (REQUIP) 1 mg tablet Take one tab in the morning and 2 in the evening sertraline (ZOLOFT) 50 mg tablet Take 1 tablet by mouth once daily. sevelamer carbonate (RENVELA) 800 mg tablet Take by mouth. Taking 2 tablet with breakfast, 2 tablet with lunch, and 2 tablets with dinner as directed. Discontinued: 09/01/2021 1:22 PM tacrolimus IR (PROGRAF) 0.5 mg capsule TAKE 1 CAPSULE TWICE DAILY torsemide (DEMADEX) 20 mg tablet Take 2 tablets by mouth once daily. Patient taking differently: Take 60 mg by mouth once daily. traZODone (DESYREL) 100 mg tablet Take 2 tablets by mouth daily at bedtime. triamcinolone acetonide (KENALOG) 0.1 % ointment Apply to affected area twice daily. vitamin B complex (B COMPLEX-VITAMIN B12 ORAL) Take 5,000 mcg by mouth once daily. Rx meds not listed in EPIC: none OTCs: none Herbals: none Objective: Exam: Last 3 Encounter BP Readings: Date: BP: 08/31/2021 130/60 08/25/2021 134/62 08/18/2021 128/52 Wt: 112.9 kg (249 lb) BMI: 41.44 kg/(m^2) LABS: Reviewed Lab Results Component Value Date HBA1C 7.3 05/10/2021 HBA1C 7.2 11/15/2020 HBA1C 6.6 05/05/2020 HBA1C 8.0 01/02/2020 CMP: Glucose 159 07/03/2021 BUN 57 07/03/2021 Creatinine 8.36 07/03/2021 Sodium 134 07/03/2021 Potassium 4.8 07/03/2021 Chloride 95 07/03/2021 CO2 Content, Venous 25 07/03/2021 Protein, Total 6.4 07/03/2021 Albumin 3.6 07/03/2021 Calcium 9.4 07/03/2021 Alkaline Phosphatase 114 07/03/2021 Bilirubin, Total 0.3 07/03/2021 AST 23 07/03/2021 ALT 31 07/03/2021 ESRD on dialysis Liver transplant list Estimated Creatinine Clearance: 8.5 mL/min (A) (based on SCr of 8.36 mg/dL (H)). Lab Results Component Value Date CHOL 141 07/03/2021 CHOL 145 04/12/2021 LDL 64 07/03/2021 LDL 43 04/12/2021 HDL 29 07/03/2021 HDL 32 04/12/2021 TG 242 07/03/2021 TG 349 04/12/2021 The 10-year ASCVD risk score (Epifanio MONROY Jr., et al., 2013) is: 14.3% Values used to calculate the score: Age: 66 years Sex: Female Is Non- : No Diabetic: Yes Tobacco smoker: No Systolic Blood Pressure: 130 mmHg Is BP treated: Yes HDL Cholesterol: 29 mg/dL Total Cholesterol: 141 mg/dL Albumin/Creat Ratio (mg/g) Date Value 05/19/2020 254 (H) PHARMACOTHERAPY ASSESSMENT/PLAN: 1. Type 2 diabetes mellitus with microalbuminuria, with long-term current use of insulin (HCC) - ICD9: 250.40, 791.0, V58.67, ICD10: E11.29, R80.9, Z79.4 (primary diagnosis) A1c goal < 8%; controlled (last A1c 7.3%); no CGM report to review due to technical difficulties - PharmD spent ~15 mins of visit getting Dexcom G6 and Clarity apps downloaded on patient's phone; patient didn't keep transmitter box so will need to wait until she replaces her sensor to upload transmitter info into G6 heather so report can be viewed on Clarity; patient reports BGs frequently elevated though FBGs usually reasonable; no sx with hypoglycemia; unable to discern if patient having sx of hyperglycemia due to other comorbitities; will slightly increase Novolog today and f/up in ~1 month INCREASE Novolog to 22 units TIDAC Ordered vials to replace pens at patient's request. She has enough syringes at home CONTINUE Lantus 50 units BID Patient to send a MyC msg in several days when she can download her transmitter info to her Dexcom G6 heather so PharmD can review Clarity report. Will plans to made additional insulin adjustments at that time if needed. HbA1c: due now 2. Medication management - ICD9: V58.69, ICD10: Z79.899 Reviewed all medications, indications, dosing, frequency, administration with patient. Medication list updated as described above. Patient is scheduled to see PROPERTY MANAGEMENT COORDINATOR on 09/28. Patient to have PharmD f/u on 10/12. Patient verbalized understanding of instructions. Kim La PharmD, [facility] Primary Care Clinical Pharmacist Julia Gu [facility] The majority of the pharmacy visit (> 50%) was spent counseling and/or coordinating care for the patient. interaction: face to face time was 28 minutes. documented in this encounter [facility] 09-06-2021 Miscellaneous Notes Pt called and is notified of providers message and instructions. Pt voices understanding. Pt put through to scheduling to set up MRI appointment. Laurence Doll RN Please let patient know that yes she does need further evaluation of this through MRI. I have placed the order, please assist with scheduling. Thank you Silva Plasencia APRN.[email or web address] Patient calls to report that her right posterior thigh isn't getting any better. She reports the lump is still there and is tender and swollen. Patient asking to have the MRI completed as issue has been on-going for four weeks. Please review and advise, Janelle Crocker RN documented in this encounter [facility] 09-06-2021 Miscellaneous Notes [employer] message sent to patient. It seems like a hematoma. And could very well be so micah if she has a h/o trauma. They are suggesting a follow up MRI is she does not get any better. Regards, Jame Hunt MD Patient calling asking for results of her ultrasound done on her right leg, she said has a lump. Aware Silva Plasencia is out of office today. Patient phone number is [phone]. Please advise 09/05/2021 8:05 AM - Radiology, Oru In Impression IMPRESSION: Nonspecific intramuscular hypoechoic lesion. Possibly, this is an organizing hematoma and correlation to any history of recent trauma is suggested. Either follow-up examinations or MRI could be considered for further assessment. Gis Manager: BRET Transcribe Date/Time: Sep 05 2021 8:02A Dictated by : MASOUD ANN MD This examination was interpreted and the report reviewed and electronically signed by: MASOUD ANN MD on Sep 05 2021 8:03AM EST Results-Findings * * *Final Report* * * DATE OF EXAM: Aug 29 2021 12:34PM LDU 1025 - US EXT MASS/FLUID COLLECTION RT / PROCEDURE REASON: multiple diagnoses * * * * Physician Interpretation * * * * EXAM TITLE: US EXT MASS/FLUID COLLECTION RT DATE: 09/05/2021 8:02 AM INDICATION: Palpable lump at the posterior right thigh COMPARISON: None. FINDINGS: Grayscale and color flow Doppler sonography were used to assess the site of palpable concern. At this location, there is an irregularly-shaped hypoechoic intramuscular lesion measuring 1.4 x 1.1 x 0.5 centimeters. This appears to have some internal fluid. documented in this encounter [facility] 08-31-2021 History of Present illness Narrative CC: No chief complaint on file. HPI Christina Guerrier is a 66 year old female who presents today for cellulitis follow up. 3 weeks ago was seen by Dr. Hunt for redness, pain, and lump to right posterior thigh. Negative for DVT. Treated with IV vanc a total of 3 times and a course of doxycycline. No signs of redness, increased warmth, fever, or any other concerns. Feels lump is getting smaller but is still present and tender. Went to dialysis yesterday, was seen by [employer] teacher and had leg checked again for DVT during dialysis but patietn states it was negative. Had US of area completed 2 days ago, but is not currently resulted. Has a small non tender lump that has been noticed to her left upper arm since last visit. Denies redness, injury to area, or any other concerns. REVIEW OF SYSTEMS General: no fevers, no chills, no night sweats, no recurrent infections, no change in appetite, no change in energy and no significant changes in weight Respiratory: no cough, no wheezing, no shortness of breath, no hemoptysis Cardiovascular: no chest pain, no chest pressure, no palpitations and no swelling PAST MEDICAL HISTORY Diagnosis Date Abdominal pain 12/21/2014 Diffuse abdominal pain x 6 days Worsened with palpation on LLQ and epigastric No diarrhea no vomiting no alcohol drink no sick contact no change in stool no melena Ddx: viral GI vs any intraabdominal pathology or infection in a setting of immunosuppressed patient Plan CT abd wo Levin culture Acute renal failure superimposed on stage 4 chronic kidney disease (HCC) 01/02/2020 Anemia Anemia in stage 4 chronic kidney disease (HCC) 12/17/2016 Anemia of chronic kidney failure, stage 4 (severe) (HCC) 12/11/2016 Anxiety Arthritis Krueger's palsy CAD (coronary artery disease) Cancer (HCC) uterine and cervical Celiac disease 2008 Cellulitis of back except buttock Cirrhosis of liver without mention of alcohol CKD (chronic kidney disease) Dialysis M/W/F [facility] COPD (chronic obstructive pulmonary disease) (HCC) Diabetes mellitus without mention of complication Diabetic polyneuropathy (HCC) 02/04/2017 Disorder of thyroid DVT (deep venous thrombosis) (HCC) Esophageal reflux Hammer toes, bilateral 11/30/2016 History of transfusion Hypertension Incisional hernia 12/30/2008 Liver replaced by transplant (HCC) 2008 - Cirrhosis s/p OLT 2008 - Cirrhosis 2/ [facility] Plan: - Continue Tacrolimus 1.5 mg BID - daily Tacrolimus levels - Continue Otezla 30 mg BID Lymphedema RAUL (obstructive sleep apnea) does not use CPAP Other and unspecified hyperlipidemia Other lymphedema runs in family PMH - PAST MEDICAL HISTORY OF 1998 endometrial cancer, had complete hysterectomy Psoriasis and similar disorders 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 No colitis. Poor rectal sphincter tone. Referred to [facility]. COLONOSCOPY FLX DX W/COLLJ SPEC WHEN PFRMD 11/29/2011 [facility] Main /Dr. Anderson COLONOSCOPY FLX DX W/COLLJ SPEC WHEN PFRMD 07/2011 Janneth COLONOSCOPY FLX DX W/COLLJ SPEC WHEN PFRMD 09/2011 Dr. Lagunas [facility] ESOPHAGOGASTRODUODENOSCOPY TRANSORAL DIAGNOSTIC 12/2009 [facility] Janneth ESOPHAGOGASTRODUODENOSCOPY TRANSORAL DIAGNOSTIC 12/2010 [facility] Janneth FISTULA HERNIA REPAIR HX 12/2008 incisional hernia repair LVR ALTRNSPLJ ORTHOTOPIC PRTL/WHL DON ANY AGE 0507/2008 PAST SURGICAL HISTORY OF 1989 left ovary/cyst removal PAST SURGICAL HISTORY OF 1974 all teeth removed SKIN BIOPSY HX TOTAL ABDOMINAL HYSTERECT W/WO RMVL TUBE OVARY 1998 Hysterectomy, FRANSISCA -for endometrial cancer VAGINAL HYSTERECTOMY VASCULAR SURGERY PROCEDURE ALLERGIES Clindamycin, Buspar [Buspirone Hcl], Duricef [Cefadroxil], Keflex [Cephalexin], Lisinopril, Losartan, Naprosyn [Naproxen], Niaspan [Niacin], Sulfa (Sulfonamide Antibiotics), and Unasyn [Ampicillin-Sulbactam] MEDICATIONS aspirin, enteric coated (ECOTRIN LOW STRENGTH) 81 mg EC tablet Take 1 tablet by mouth once daily. Blood-Glucose Transmitter (DEXCOM G6 TRANSMITTER) brady Apply new transmitter every 90 days. Clean transmitter with an alcohol swab with each sensor change. Blood-Glucose Meter,Continuous (DEXCOM G6 CHIP BIN OPERATOR) [facility] Use to check blood sugar at least four (4) times daily. Blood-Glucose Sensor (DEXCOM G6 SENSOR) brady Apply new sensor every ten (10) days to abdomen. triamcinolone acetonide (KENALOG) 0.1 % ointment Apply to affected area twice daily. melatonin 5 mg tablet Take 6 tablets by mouth daily at bedtime. BIOTIN ORAL Take 1 tablet by mouth once daily. Insulin Syringe-Needle U-100 0.5 mL 31 gauge x 5/16 Use to inject insulin 5 times daily as directed. insulin glargine (LANTUS U-100 INSULIN) 100 unit/mL injection Inject 50 Units subcutaneously twice daily. Via Syringe insulin aspart U-100 (NOVOLOG FLEXPEN U-100 INSULIN) 100 unit/mL (3 mL) Inject 17 Units subcutaneously three times daily before meals. colchicine 0.6 mg tablet Take 0.5 tablet by mouth once daily for 14 days ferrous sulfate 325 mg (65 mg iron) tablet Take 325 mg by mouth daily with breakfast. clopidogrel (PLAVIX) 75 mg tablet Take 1 tablet by mouth once daily. nitroglycerin sublingual (NITROQUICK) 0.4 mg SL tablet Dissolve 1 tablet under the tongue every 5 minutes as needed for chest pain. traZODone (DESYREL) 100 mg tablet Take 2 tablets by mouth daily at bedtime. apremilast (OTEZLA) 30 mg tablet Take 1 tablet by mouth once daily. atorvastatin (LIPITOR) 10 mg tablet Take 1 tablet by mouth once daily. blood sugar diagnostic (BLOOD GLUCOSE TEST) test strip Test blood sugar(s) 5 times daily. Dx: Type 2 DM - Controlled E11.9 Insulin: Yes carvedilol (COREG) 12.5 mg tablet Take 1 tablet by mouth twice daily. levothyroxine (LEVOXYL) 88 mcg tablet Take 1 tablet by mouth once daily. Take on empty stomach. For Thyroid pantoprazole DR (PROTONIX) 40 mg tablet Take 1 tablet by mouth once daily. As needed for upset stomach rOPINIRole (REQUIP) 1 mg tablet Take one tab in the morning and 2 in the evening sertraline (ZOLOFT) 50 mg tablet Take 1 tablet by mouth once daily. torsemide (DEMADEX) 20 mg tablet Take 2 tablets by mouth once daily. sevelamer carbonate (RENVELA) 800 mg tablet Take by mouth. Taking 2 tablet with breakfast, 2 tablet with lunch, and 2 tablets with dinner as directed. B Complex-Vitamin C-Folic Acid (RENAL VITAMIN) 0.8 mg tab Take 1 tablet by mouth once daily. tacrolimus IR (PROGRAF) 0.5 mg capsule Take 1 capsule by mouth twice daily. Blood-Glucose Meter monitoring kit Glucose Meter of Choice - Kit - Dx: Type 2 DM - Uncontrolled E11.65 with hypoglycemia Insulin: yes cholecalciferol (VITAMIN D3) 1,000 unit tab tablet Take 1,000 Units by mouth twice daily. vitamin B complex (B COMPLEX-VITAMIN B12 ORAL) Take 5,000 mcg by mouth once daily. Ascorbic Acid (VITAMIN C) 1,000 mg tablet Take 1,000 mg by mouth once daily. ACCU-CHEK MULTICLIX LANCET lancets TEST BLOOD SUGAR 4 TO 5 TIMES DAILY. + Nebulizer Supplies Nebulizer, Mask, & O2 Tubing. Use as directed. FAMILY HISTORY Problem Relation Age of Onset Cancer Father age 73 lung CA Stroke Father Ischemic Heart Disease Father [place] age 70s Diabetes Mother age 76 other (Dementia) Mother other (CHF) Mother other (Lymphedema) Mother other (renal failure) Mother Psoriasis Brother other (cirrhosis) Brother from aneurysm at age 38 other (psoriasis) Brother Social History Tobacco Use Smoking status: Passive Smoke Exposure - Never Smoker Smokeless tobacco: Never Used Tobacco comment: Parents both smoked in childhood home. No household ETS since. Vaping Use Vaping Use: Never used Substance Use Topics Alcohol use: No Drug use: No PHYSICAL EXAM There were no vitals taken for this visit. General Appearance: well appearing, in no acute distress, alert Eyes: conjunctiva pink and moist, no icterus, sclera white, non-injected Right lower Extremity: No edema, skin discoloration, clubbing or cyanosis. Good capillary refill. , - does still have firm mass to posterior right thigh without redness increased warmth, and may be slightly smaller than last week. patietn reports tenderness with palpation Left Upper Extremity: No edema, skin discoloration, clubbing or cyanosis. Good capillary refill. , small firm mass noted to left bicep area, no fluctuation, tenderness or redness noted. Health maintenance reviewed with patient: BP CONTROLLED (<130/80) Never done SHINGRIX VACCINE(1 of 2) Never done PAP TESTING due on 03/05/2020 COVID-19 VACCINE(5 - Booster for Pfizer series) due on 09/01/2021 DILATED RETINAL EXAM due on 10/20/2021 HBA1C due on 11/10/2021 HPV TESTING due on 03/05/2022 DIABETIC FOOT EXAM due on 03/28/2022 MAMMOGRAM due on 03/30/2022 DEPRESSION SCREENING due on 05/21/2022 LDL CHOLESTEROL due on 07/03/2022 SERUM CREATININE due on 07/03/2022 HEMOGLOBIN/HEMATOCRIT due on 07/03/2022 ANNUAL PCP TEAM CHRONIC DISEASE VISIT due on 08/25/2022 PNEUMOCOCCAL(4 - PPSV23 or PCV20) due on 11/07/2025 COLORECTAL CANCER SCREENING due on 09/13/2027 DTAP,TDAP,TD(3 - Td or Tdap) due on 12/31/2028 HEPATITIS B Completed INFLUENZA Completed HEPATITIS C SCREENING Completed HIV SCREENING Completed HPV VACCINE Aged Out DATA REVIEWED: No new labs ASSESSMENT/PLAN: 1. Lump of right thigh - ICD9: 782.2, ICD10: R22.41 (primary diagnosis) - infection fully resolved. - awaiting US results 2. Localized swelling, mass, or lump of left upper extremity - ICD9: 782.2, ICD10: R22.32 - will see what US results show for right thigh, depending on results will decide if LUE needs US or other diagnostics need completed. Prescription instructions reviewed with patient as applicable. Potential red flag symptoms discussed with the patient. Reviewed appropriate action plan to take if red flag symptoms occur. Patient agreeable to treatment plan. Silva Plasencia APRN.CNP documented in this encounter [facility] 08-25-2021 History of Present illness Narrative CC: Patient presents with: Recheck: Follow up leg HPI Christina L Chey is a 66 year old female who presents today for follow up on cellulitis. Patient is very complex with history of liver transplant, Kidney disease and hemodialysis 3 times weekly, and CAD requiring stent placement earlier this year. 2 weeks ago pt noticed redness, heat, and lump to right posterior thigh. Was seen by Dr. Hunt, sent to ER. Was ruled out for DVT, given vancomycin in ER, sent home on doxycyline and given vancomycin twice at dialysis. Saw Dr. York for ER follow up last week without any new changes and completed doxycycline today. States redness is gone, lump to posterior thigh has slightly improved but is still very tender. REVIEW OF SYSTEMS General: no fevers, no chills, no night sweats, no recurrent infections, no change in appetite, no change in energy and no significant changes in weight Respiratory: no cough, no wheezing, no shortness of breath, no hemoptysis Cardiovascular: no chest pain, no chest pressure, no palpitations and no swelling GI: No nausea, vomiting, or diarrhea Neurologic: No headache, weakness, numbness, tingling, dizziness, syncope. PAST MEDICAL HISTORY Diagnosis Date Abdominal pain 12/21/2014 Diffuse abdominal pain x 6 days Worsened with palpation on LLQ and epigastric No diarrhea no vomiting no alcohol drink no sick contact no change in stool no melena Ddx: viral GI vs any intraabdominal pathology or infection in a setting of immunosuppressed patient Plan CT abd wo Levin culture Acute renal failure superimposed on stage 4 chronic kidney disease (HCC) 01/02/2020 Anemia Anemia in stage 4 chronic kidney disease (HCC) 12/17/2016 Anemia of chronic kidney failure, stage 4 (severe) (HCC) 12/11/2016 Anxiety Arthritis Krueger's palsy CAD (coronary artery disease) Cancer (HCC) uterine and cervical Celiac disease 2008 Cellulitis of back except buttock Cirrhosis of liver without mention of alcohol CKD (chronic kidney disease) Dialysis M/W/F [facility] COPD (chronic obstructive pulmonary disease) (HCC) Diabetes mellitus without mention of complication Diabetic polyneuropathy (HCC) 02/04/2017 Disorder of thyroid DVT (deep venous thrombosis) (HCC) Esophageal reflux Hammer toes, bilateral 11/30/2016 History of transfusion Hypertension Incisional hernia 12/30/2008 Liver replaced by transplant (HCC) 2008 - Cirrhosis s/p OLT 2008 - Cirrhosis 04/05 [facility] Plan: - Continue Tacrolimus 1.5 mg BID - daily Tacrolimus levels - Continue Otezla 30 mg BID Lymphedema RAUL (obstructive sleep apnea) does not use CPAP Other and unspecified hyperlipidemia Other lymphedema runs in family PMH - PAST MEDICAL HISTORY OF 1998 endometrial cancer, had complete hysterectomy Psoriasis and similar disorders [place]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 No colitis. Poor rectal sphincter tone. Referred to [facility]. COLONOSCOPY FLX DX W/COLLJ SPEC WHEN PFRMD 11/29/2011 [facility] /Dr. Anderson COLONOSCOPY FLX DX W/COLLJ SPEC WHEN PFRMD 07/2011 [facility] COLONOSCOPY FLX DX W/COLLJ SPEC WHEN PFRMD 09/2011 Dr. Lagunas [facility] ESOPHAGOGASTRODUODENOSCOPY TRANSORAL DIAGNOSTIC 12/2009 [facility] Janneth ESOPHAGOGASTRODUODENOSCOPY TRANSORAL DIAGNOSTIC 12/2010 [facility] Janneth FISTULA HERNIA REPAIR HX 12/2008 incisional hernia repair LVR ALTRNSPLJ ORTHOTOPIC PRTL/WHL DON ANY AGE 0507/2008 PAST SURGICAL HISTORY OF 1989 left ovary/cyst removal PAST SURGICAL HISTORY OF 1974 all teeth removed SKIN BIOPSY HX TOTAL ABDOMINAL HYSTERECT W/WO RMVL TUBE OVARY 1998 Hysterectomy, FRANSISCA -for endometrial cancer VAGINAL HYSTERECTOMY VASCULAR SURGERY PROCEDURE ALLERGIES Clindamycin, Buspar [Buspirone Hcl], Duricef [Cefadroxil], Keflex [Cephalexin], Lisinopril, Losartan, Naprosyn [Naproxen], Niaspan [Niacin], Sulfa (Sulfonamide Antibiotics), and Unasyn [Ampicillin-Sulbactam] MEDICATIONS aspirin, enteric coated (ECOTRIN LOW STRENGTH) 81 mg EC tablet Take 1 tablet by mouth once daily. Blood-Glucose Transmitter (NETpeas G6 TRANSMITTER) brady Apply new transmitter every 90 days. Clean transmitter with an alcohol swab with each sensor change. Blood-Glucose Meter,Continuous (DEXCOM G6 CHIP BIN OPERATOR) [facility] to check blood sugar at least four (4) times daily. Blood-Glucose Sensor (DEXCOM G6 SENSOR) brady Apply new sensor every ten (10) days to abdomen. triamcinolone acetonide (KENALOG) 0.1 % ointment Apply to affected area twice daily. melatonin 5 mg tablet Take 6 tablets by mouth daily at bedtime. BIOTIN ORAL Take 1 tablet by mouth once daily. Insulin Syringe-Needle U-100 0.5 mL 31 gauge x 5/16 Use to inject insulin 5 times daily as directed. insulin glargine (LANTUS U-100 INSULIN) 100 unit/mL injection Inject 50 Units subcutaneously twice daily. Via Syringe insulin aspart U-100 (NOVOLOG FLEXPEN U-100 INSULIN) 100 unit/mL (3 mL) Inject 17 Units subcutaneously three times daily before meals. colchicine 0.6 mg tablet Take 0.5 tablet by mouth once daily for 14 days ferrous sulfate 325 mg (65 mg iron) tablet Take 325 mg by mouth daily with breakfast. clopidogrel (PLAVIX) 75 mg tablet Take 1 tablet by mouth once daily. nitroglycerin sublingual (NITROQUICK) 0.4 mg SL tablet Dissolve 1 tablet under the tongue every 5 minutes as needed for chest pain. traZODone (DESYREL) 100 mg tablet Take 2 tablets by mouth daily at bedtime. apremilast (OTEZLA) 30 mg tablet Take 1 tablet by mouth once daily. atorvastatin (LIPITOR) 10 mg tablet Take 1 tablet by mouth once daily. blood sugar diagnostic (BLOOD GLUCOSE TEST) test strip Test blood sugar(s) 5 times daily. Dx: Type 2 DM - Controlled E11.9 Insulin: Yes carvedilol (COREG) 12.5 mg tablet Take 1 tablet by mouth twice daily. levothyroxine (LEVOXYL) 88 mcg tablet Take 1 tablet by mouth once daily. Take on empty stomach. For Thyroid pantoprazole DR (PROTONIX) 40 mg tablet Take 1 tablet by mouth once daily. As needed for upset stomach rOPINIRole (REQUIP) 1 mg tablet Take one tab in the morning and 2 in the evening sertraline (ZOLOFT) 50 mg tablet Take 1 tablet by mouth once daily. torsemide (DEMADEX) 20 mg tablet Take 2 tablets by mouth once daily. sevelamer carbonate (RENVELA) 800 mg tablet Take by mouth. Taking 2 tablet with breakfast, 2 tablet with lunch, and 2 tablets with dinner as directed. B Complex-Vitamin C-Folic Acid (RENAL VITAMIN) 0.8 mg tab Take 1 tablet by mouth once daily. tacrolimus IR (PROGRAF) 0.5 mg capsule Take 1 capsule by mouth twice daily. Blood-Glucose Meter monitoring kit Glucose Meter of Choice - Kit - Dx: Type 2 DM - Uncontrolled E11.65 with hypoglycemia Insulin: yes cholecalciferol (VITAMIN D3) 1,000 unit tab tablet Take 1,000 Units by mouth twice daily. vitamin B complex (B COMPLEX-VITAMIN B12 ORAL) Take 5,000 mcg by mouth once daily. Ascorbic Acid (VITAMIN C) 1,000 mg tablet Take 1,000 mg by mouth once daily. ACCU-CHEK MULTICLIX LANCET lancets TEST BLOOD SUGAR 4 TO 5 TIMES DAILY. + Nebulizer Supplies Nebulizer, Mask, & O2 Tubing. Use as directed. FAMILY HISTORY Problem Relation Age of Onset Cancer Father age 73 lung CA Stroke Father Ischemic Heart Disease Father [place] age 70s Diabetes Mother age 76 other (Dementia) Mother other (CHF) Mother other (Lymphedema) Mother other (renal failure) Mother Psoriasis Brother other (cirrhosis) Brother from aneurysm at age 38 other (psoriasis) Brother Social History Tobacco Use Smoking status: Passive Smoke Exposure - Never Smoker Smokeless tobacco: Never Used Tobacco comment: Parents both smoked in childhood home. No household ETS since. Vaping Use Vaping Use: Never used Substance Use Topics Alcohol use: No Drug use: No PHYSICAL EXAM BP 134/62 Pulse 72 Resp 16 Wt 113.4 kg (250 lb) BMI 41.60 kg/m General Appearance: well appearing, in no acute distress, alert Eyes: conjunctiva pink and moist, no icterus, sclera white, non-injected Lungs: Lungs clear to auscultation. No wheezing, rhonchi, rales. Heart: RRR without murmur, gallop, or rubs. No ectopy RLE Extremities: No clubbing or cyanosis. Good capillary refill. , 1+ BLE edema which is chronic for patient. No redness or increased warmth. Large slightly firm lump noted to posterior right thigh and is tender with palpation. No fluctuation noted. LLE Extremities: No deformities, skin discoloration, clubbing or cyanosis. Good capillary refill. Health maintenance reviewed with patient: SHINGRIX VACCINE(1 of 2) Never done PAP TESTING due on 03/05/2020 COVID-19 VACCINE(5 - Booster for Pfizer series) due on 09/01/2021 DILATED RETINAL EXAM due on 10/20/2021 HBA1C due on 11/10/2021 HPV TESTING due on 03/05/2022 DIABETIC FOOT EXAM due on 03/28/2022 MAMMOGRAM due on 03/30/2022 DEPRESSION SCREENING due on 05/21/2022 LDL CHOLESTEROL due on 07/03/2022 SERUM CREATININE due on 07/03/2022 HEMOGLOBIN/HEMATOCRIT due on 07/03/2022 ANNUAL PCP TEAM CHRONIC DISEASE VISIT due on 08/18/2022 BP CONTROLLED (<130/80) due on 08/18/2022 PNEUMOCOCCAL(4 - PPSV23 or PCV20) due on 11/07/2025 COLORECTAL CANCER SCREENING due on 09/13/2027 DTAP,TDAP,TD(3 - Td or Tdap) due on 12/31/2028 HEPATITIS B Completed INFLUENZA Completed HEPATITIS C SCREENING Completed HIV SCREENING Completed HPV VACCINE Aged Out DATA REVIEWED: Most recent labs ASSESSMENT/PLAN: 1. Lump of right thigh - ICD9: 782.2, ICD10: R22.41 (primary diagnosis) - no signs of current infection, but still has tender large lump with only slight improvement. Needs further evaluated - US EXTREMITY MASS/FLUID COLLECTION RT - Follow up next week. Go to ER for fever, malaise, redness, increased swelling, chest pain, shortness of breath, or any other urgent concerns 2. Tenderness of right lower extremity - ICD9: 729.5, ICD10: M79.604 As above - US EXTREMITY MASS/FLUID COLLECTION RT Prescription instructions reviewed with patient as applicable. Potential red flag symptoms discussed with the patient. Reviewed appropriate action plan to take if red flag symptoms occur. Patient agreeable to treatment plan. Silva Plasencia APRN.CNP documented in this encounter [facility] 08-21-2021 History of Present illness Narrative POPULATION HEALTH NAVIGATION OUTREACH Action/FYI Patient Outreach: [place] [facility] - Spoke with patient to schedule Follow up with Kidney Medicine. Patient declined CKD appointment. She is in Dialysis and being followed by non [facility] provider. Pt identified by name and : YES, via phone Outreach Outcome/Action Spoke to patient or caregiver: Patient declined Did you use a PCP flex slot to schedule this appointment? No Reason for Outreach Care Gap or Scheduling/Wellness visits Payer: Payor: [employer] MEDICARE / Plan: [employer] GOLD PLUS / Product Type: HMO / Care Gap Reviewed:: Follow-up appointment Reminder: Reminder note to check Health Maintenance for items below Health Maintenance items due: SHINGRIX VACCINE(1 of 2) Never done PAP TESTING due on 03/05/2020 Message Sent to Practice: No Navigation Signature: Haritha Cary August 21, 2021 5:00 PM documented in this encounter [facility] 08-14-2021 Miscellaneous Notes forms completed and faxed on 08/09/2021. Franci Quinn LPN Forms received and placed papers on providers desk. Franci Quinn LPN Ok noted. Jasmina from [facility] [employer] [facility] calling she will be faxing Power chair forms back to office with on cover sheet what needs to be fixed on the forms. Please advise documented in this encounter [facility] 08-14-2021 History of Present illness Narrative Reason for Visit Patient presents with: Same Day Appointment: right lower leg/foot swollen and painful Christina Guerrier is a 66 year old female who presents here today for Above Complaints. Health Maintenance SHINGRIX VACCINE(1 of 2) PAP TESTING HPI Since Saturday she has not been well, She could not go to dialysis... She had a temperature, which was high with malaise, nausea and was resltess since Saturday, towards the evening of Saturday she did go to [facility], her covid and flu was negative on testing. Since yesterday she has noticed a large lump on the back of her right thigh, which is exquisitely painful and she cannot lay on that side. There is swelling of the left posterior thigh just above the knee , multiple scratch jules are seen on both extremities She is constantly nauseas and miserable today and is very fatigued Was too weak and so Not able to go for dialysis. No problem-specific Assessment & Plan notes found for this encounter. PAST MEDICAL HISTORY Diagnosis Date Abdominal pain 12/21/2014 Diffuse abdominal pain x 6 days Worsened with palpation on LLQ and epigastric No diarrhea no vomiting no alcohol drink no sick contact no change in stool no melena Ddx: viral GI vs any intraabdominal pathology or infection in a setting of immunosuppressed patient Plan CT abd wo Levin culture Acute renal failure superimposed on stage 4 chronic kidney disease (HCC) 01/02/2020 Anemia Anemia in stage 4 chronic kidney disease (HCC) 12/17/2016 Anemia of chronic kidney failure, stage 4 (severe) ([facility]) 12/11/2016 Anxiety Arthritis Krueger's palsy CAD (coronary artery disease) Cancer (HCC) uterine and cervical Celiac disease 2007 Cellulitis of back except buttock Cirrhosis of liver without mention of alcohol CKD (chronic kidney disease) Dialysis M/W/F [facility] COPD (chronic obstructive pulmonary disease) (HCC) Diabetes mellitus without mention of complication Diabetic polyneuropathy ([facility]) 02/04/2017 Disorder of thyroid DVT (deep venous thrombosis) ([facility]) Esophageal reflux Hammer toes, bilateral 11/30/2016 History of transfusion Hypertension Incisional hernia 12/30/2008 Liver replaced by transplant ([facility]) 2008 - 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 Plan: - Continue Tacrolimus 1.5 mg BID - daily Tacrolimus levels - Continue Otezla 30 mg BID Lymphedema RAUL (obstructive sleep apnea) does not use CPAP Other and unspecified hyperlipidemia Other lymphedema runs in family PMH - PAST MEDICAL HISTORY OF 1999 endometrial cancer, had complete hysterectomy Psoriasis and similar disorders [place]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 No colitis. Poor rectal sphincter tone. Referred to [facility]. COLONOSCOPY FLX DX W/COLLJ SPEC WHEN PFRMD 11/29/2011 [facility] /Dr. Anderson COLONOSCOPY FLX DX W/COLLJ SPEC WHEN PFRMD 07/2011 [facility] COLONOSCOPY FLX DX W/COLLJ SPEC WHEN PFRMD 09/2011 Dr. Lagunas [facility] ESOPHAGOGASTRODUODENOSCOPY TRANSORAL DIAGNOSTIC 12/2009 [facility] Janneth ESOPHAGOGASTRODUODENOSCOPY TRANSORAL DIAGNOSTIC 12/2010 [facility] Janneth FISTULA HERNIA REPAIR HX 12/2008 incisional hernia repair LVR ALTRNSPLJ ORTHOTOPIC PRTL/WHL DON ANY AGE 0507/2008 PAST SURGICAL HISTORY OF 1989 left ovary/cyst removal PAST SURGICAL HISTORY OF 1974 all teeth removed SKIN BIOPSY HX TOTAL ABDOMINAL HYSTERECT W/WO RMVL TUBE OVARY 1998 Hysterectomy, FRANSISCA -for endometrial cancer VAGINAL HYSTERECTOMY VASCULAR SURGERY PROCEDURE FAMILY HISTORY Problem Relation Age of Onset Cancer Father age 73 lung CA Stroke Father Ischemic Heart Disease Father [place] age 70s Diabetes Mother age 76 other (Dementia) Mother other (CHF) Mother other (Lymphedema) Mother other (renal failure) Mother Psoriasis Brother other (cirrhosis) Brother from aneurysm at age 38 other (psoriasis) Brother Social History Tobacco Use Smoking status: Passive Smoke Exposure - Never Smoker Smokeless tobacco: Never Used Tobacco comment: Parents both smoked in childhood home. No household ETS since. Vaping Use Vaping Use: Never used Substance Use Topics Alcohol use: No Drug use: No Past medical history, appointments, medications, allergies reviewed. Pertinent Lab/Diagnostic Studies are reviewed and discussed today Current Outpatient Medications: aspirin, enteric coated (ECOTRIN LOW STRENGTH) 81 mg EC tablet diclofenac (VOLTAREN ARTHRITIS PAIN) 1 % topical gel Blood-Glucose Transmitter (DEXCOM G6 TRANSMITTER) brady Blood-Glucose Meter,Continuous (DEXCOM G6 CHIP BIN OPERATOR) misc Blood-Glucose Sensor (DEXCOM G6 SENSOR) brady triamcinolone acetonide (KENALOG) 0.1 % ointment melatonin 5 mg tablet BIOTIN ORAL Insulin Syringe-Needle U-100 0.5 mL 31 gauge x 5/16 insulin glargine (LANTUS U-100 INSULIN) 100 unit/mL injection insulin aspart U-100 (NOVOLOG FLEXPEN U-100 INSULIN) 100 unit/mL (3 mL) colchicine 0.6 mg tablet ferrous sulfate 325 mg (65 mg iron) tablet clopidogrel (PLAVIX) 75 mg tablet nitroglycerin sublingual (NITROQUICK) 0.4 mg SL tablet traZODone (DESYREL) 100 mg tablet apremilast (OTEZLA) 30 mg tablet atorvastatin (LIPITOR) 10 mg tablet blood sugar diagnostic (BLOOD GLUCOSE TEST) test strip carvedilol (COREG) 12.5 mg tablet levothyroxine (LEVOXYL) [address] (PROTONIX) 40 mg tablet rOPINIRole (REQUIP) 1 mg tablet sertraline (ZOLOFT) 50 mg tablet torsemide (DEMADEX) 20 mg tablet sevelamer carbonate (RENVELA) 800 mg tablet B Complex-Vitamin C-Folic Acid (RENAL VITAMIN) 0.8 mg tab tacrolimus IR (PROGRAF) 0.5 mg capsule Blood-Glucose Meter monitoring kit cholecalciferol (VITAMIN D3) 1,000 unit tab tablet vitamin B complex (B COMPLEX-VITAMIN B12 ORAL) Ascorbic Acid (VITAMIN C) 1,000 mg tablet ACCU-CHEK MULTICLIX LANCET lancets + Nebulizer Supplies Current Facility-Administered Medications: perflutren lipid microspheres 1.3 mL in NaCl (PF) 0.9% 10 mL injection (DEFINITY) sodium chloride 0.9 % (flush) 10 mL (BD POSIFLUSH) Review of Systems CONSTITUTIONAL: No fevers, chills night sweats, unintended weight loss CARDIOVASCULAR: No chest pain, dyspnea, palpitations, orthopnea, PND, ankle edema. PULM: No dyspnea, unexplained cough. GI: No dysphagia/odynophagia, problematic reflux, constipation, diarrhea, changes in stool habits, hematochezia, melena. : No new urinary complaints, including dysuria, gross hematuria or pyuria. NEURO: No new balance problems, peripheral weakness/paresthesias or numbness of concern. Physical Exam BP (!) 114/44 (BP Site: Right Arm, BP Position: Sitting, BP Cuff Size: Large Adult) Pulse 74 Temp 36.2 C (97.1 F) Resp 16 Ht 165.1 cm (5' 5 ) SpO2 100% BMI 41.44 kg/m General appearance: looks tired and exhausted, Alert and oriented * 3 Skin:scabs from scratching all over the legs. Head: Normocephalic, no masses, lesions, tenderness or abnormalities Eyes: Anicteric sclera. Pupils are equally round and reactive to light. Extraocular movements are intact. Lungs: Lungs clear to auscultation. No wheezing, rhonchi, rales Heart: RRR without murmur, gallop, or rubs. Extremities: swelling in the right posterior thigh, medially ,diffuse area of about 6 cms oval shaped, just above the knee which is erythematous and extremely tender on touching, with swelling of the right lower leg and she has scratches all around the knees and back of leg. ASSESSMENT/PLAN: 1. Redness and swelling of thigh - ICD9: 729.81, 782.9, ICD10: M79.89, R23.8 (primary diagnosis) Her right LE is swollen, she has an area of exquisite tenderness posterior knee, that seems like an infection, She seems to be exhausted, We need to rule out dvt or abscess in that area. - US LEG VEIN DVT UNL VAS LAB 2. Pain of right lower extremity - ICD9: 729.5, ICD10: M79.604 - US LEG VEIN DVT UNL VAS LAB 3. Primary hypertension - ICD9: 401.9, ICD10: I10 Diastolic is a little lower than her normal 4. Fever, unspecified fever cause - ICD9: 780.60, ICD10: R50.9 ? Infection from the scratching of her legs. Too many chronic conditions , could decline quickly into sepsis if she has an infection 5. Nausea - ICD9: 787.02, ICD10: R11.0 Jame Hunt MD documented in this encounter [facility] 08-09-2021 Miscellaneous Notes Form completed and faxed. Franci Quinn LPN I addeded ,my notes please addend your office note per Charlotte , see below Noted. Thank you for all of your help with this. Thank you Silva Plasencia APRN.NATHALY Thanks for reaching out to patient Franci. Dr. Hunt, can you please addend your last office visit note with the information below from patient. Thanks, Charlotte Gurrola PharmD, BCACP Primary Care Clinical Pharmacist [facility] Patient takes insulin: Novolog unit(s)-100 3 times daily and the takes Lantus 2 times daily. Patient checks bld sugar twice- 4 daily. Franci Quinn LPN Please call patient and find out how many times she Is giving her self insulin and how often she checks her blood sugars a day? I will add this to my note for today Patient has not been seen by pharmacy in over 12 months. If needing medication titration of insulins, please place new referral to pharmacy for patient to be contacted by PSS team to schedule. If patient simply needs CGM ordered, please utilize Medicare Written Order From and attach PCP notes stating how often patient is monitoring blood sugars, as this is a criteria by CMS. The form then needs to be sent to DME preferred by insurance, if patient is unsure then she should contact her insurance company to find out who the preferred DME is for her plan. Medicare criteria for CGM: - Monitoring blood sugars 4 times daily - Has at least 3 injections of daily insulin or on an insulin pump Thanks, Charlotte Gurrola, PharmD, BCACP Primary Care Clinical Pharmacist [facility] Patient is interested in getting the [place] and may need a follow up appointment. Please advise documented in this encounter [facility] 08-03-2021 Miscellaneous Notes Pt would like these medications reordered. Correct pharmacy verified on order. Pending Prescriptions Disp Refills ASPIRIN 81 MG CHEWABLE TABLET Sig: Take 4 tablets by mouth once daily. JHON: No documented in this encounter [facility] 07-24-2021 History of Present illness Narrative Charbel Esparza MD Department of Orthopaedics Orthopaedics [address] [facility] [address] Dept: [phone] Dept July 24, 2021 Consultation requested by Josse Lance for an opinion regarding bilateral hand/wrist pain. My final recommendations will be communicated back to the requesting physician by way of shared Medical record or letter to requesting physician via US mail. CHIEF COMPLAINT: New and Pain of the Left Wrist and New and Pain of the Right Wrist HPI Patient here today for bilateral wrist pain. She states she gets a shooting pain through the left thumb. She is right hand dominant, does not work outside the home and is on disability. X-ray completed on 07/03/2021. ASSESSMENT: M25.531, M25.532 Bilateral wrist pain M25.532, G89.29 Chronic pain of left wrist M25.531 Acute pain of right wrist PLAN: Most obvious source of her wrist/thumb pain was bilateral STT osteoarthritis. There is some mild at the CMC joints of each thumb but the STT joints are certainly problematic for her. We discussed multiple options and she would like to try a topical anti-inflammatory first for the wrists. Splinting and potentially down the line thumb arthroplasty may be appropriate. FOLLOW UP INSTRUCTIONS: As needed Ms. Christina Guerrier was advised as to contrast therapies and/or to take analgesics/anti-inflammatories as needed and all contraindications were reviewed. OBJECTIVE: Ms. Christina Guerrier is a pleasant 66 year old in no apparent distress. Gen:There were no vitals taken for this visit. nl development, Morbidly obese, no deformities ENT: Normocephalic, normal hearing, moist mucosa CV: Pulses:Radial= 2+ and symmetric, capillary refill < 2 secs, no peripheral edema/varicosities Skin: no rash, bruising or lesions. Good turgor. Psych: cooperative and appropriate, alert and oriented x 3, good mood and affect. Musculoskeletal: Some mild, clinical arthritic changes through a number of the joints in both hands. No diffuse swelling particularly. She does have some mild swelling at both radial sided wrists's, somewhat near the basal joints. Some mild discomfort on grind testing, left greater than right, however majority of her pain appears to be directly located at the STT joints of both thumbs and certainly painful on palpation of these locations. Median, radial and ulnar nerves are intact. IMAGING: IMPRESSION: Osteoarthrosis. No evidence of inflammatory arthropathy. Gis Manager: [facility] Transcribe Date/Time: Jul 03 2021 4:57P Dictated by : JAUN MERLOS MD This examination was interpreted and the report reviewed and electronically signed by: JAUN MERLOS MD on Jul 03 2021 5:03PM EST Results-Findings * * *Final Report* * * DATE OF EXAM: Jul 03 2021 12:01PM WOX [id number] - XR HAND 3V PA/LAT/OBL UNIQUE / PROCEDURE REASON: multiple diagnoses * * * * Physician Interpretation * * * * Bilateral hand radiograph HISTORY: 66 years old Clinical information: Bilateral wrist pain Bilateral wrist pain Chronic pain of left wrist Chronic pain of left wrist Bilateral thumb and CMC joint pain increasing over time without injury TECHNIQUE: Images: XR HAND 3V PA/LAT/OBL UNIQUE Comparison: None. Left hand RESULT: Diffuse osteopenia. No fracture or dislocation identified. Narrowing of the scaphoid trapezial and trapezoid joint space. Degenerative cyst formation involving the proximal trapezium and osteophyte formation involving the distal scaphoid. No acute fracture or dislocation identified. No erosions are seen. Minimal chondrocalcinosis in the region of the triangular fibrocartilage and distal radial ulnar joint. No soft tissue abnormality identified. Right hand RESULT: Diffuse osteopenia. Mild osteophyte formation subjacent multiple distal interphalangeal joints. Narrowing of the distal interphalangeal joint of the fifth finger. Narrowing of the scaphoid trapezial and trapezium joint space. Degenerative cyst formation involving the trapezium and osteophyte formation involving the scaphoid. Small degenerative cysts in the capitate. No erosions are seen. Minimal chondrocalcinosis in the region of the triangular fibrocartilage. No soft tissue abnormality identified. Supporting Subjective Information Below: Past Medical History: PAST MEDICAL HISTORY Diagnosis Date Abdominal pain 12/21/2014 Diffuse abdominal pain x 6 days Worsened with palpation on LLQ and epigastric No diarrhea no vomiting no alcohol drink no sick contact no change in stool no melena Ddx: viral GI vs any intraabdominal pathology or infection in a setting of immunosuppressed patient Plan CT abd wo Levin culture Acute renal failure superimposed on stage 4 chronic kidney disease (HCC) 01/02/2020 Anemia Anemia in stage 4 chronic kidney disease (HCC) 12/17/2016 Anemia of chronic kidney failure, stage 4 (severe) (HCC) 12/11/2016 Anxiety Arthritis Krueger's palsy CAD (coronary artery disease) Cancer (HCC) uterine and cervical Celiac disease 2007 Cellulitis of back except buttock Cirrhosis of liver without mention of alcohol CKD (chronic kidney disease) Dialysis M/W/F [facility] COPD (chronic obstructive pulmonary disease) (HCC) Diabetes mellitus without mention of complication Diabetic polyneuropathy (HCC) 02/04/2017 Disorder of thyroid DVT (deep venous thrombosis) (HCC) Esophageal reflux Hammer toes, bilateral 11/30/2016 History of transfusion Hypertension Incisional hernia 12/30/2008 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 Plan: - Continue Tacrolimus 1.5 mg BID - daily Tacrolimus levels - Continue Otezla 30 mg BID Lymphedema RAUL (obstructive sleep apnea) does not use CPAP Other and unspecified hyperlipidemia Other lymphedema runs in family PMH - PAST MEDICAL HISTORY OF 1999 endometrial cancer, had complete hysterectomy Psoriasis and similar disorders [place]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 No colitis. Poor rectal sphincter tone. Referred to [facility]. COLONOSCOPY FLX DX W/COLLJ SPEC WHEN PFRMD 11/29/2011 [facility] /Dr. Anderson COLONOSCOPY FLX DX W/COLLJ SPEC WHEN PFRMD 07/2011 Janneth COLONOSCOPY FLX DX W/COLLJ SPEC WHEN PFRMD 09/2011 Dr. Lagunas [facility] ESOPHAGOGASTRODUODENOSCOPY TRANSORAL DIAGNOSTIC 12/2009 [facility] Janneth ESOPHAGOGASTRODUODENOSCOPY TRANSORAL DIAGNOSTIC 12/2010 [facility] Janneth FISTULA HERNIA REPAIR HX 12/2008 incisional hernia repair LVR ALTRNSPLJ ORTHOTOPIC PRTL/WHL DON ANY AGE 0507/2008 PAST SURGICAL HISTORY OF 1989 left ovary/cyst removal PAST SURGICAL HISTORY OF 1974 all teeth removed SKIN BIOPSY HX TOTAL ABDOMINAL HYSTERECT W/WO RMVL TUBE OVARY 1998 Hysterectomy, FRANSISCA -for endometrial cancer VAGINAL HYSTERECTOMY VASCULAR SURGERY PROCEDURE Family History: FAMILY HISTORY Problem Relation Age of Onset Cancer Father age 73 lung CA Stroke Father Ischemic Heart Disease Father [place] age 70s Diabetes Mother age 76 other (Dementia) Mother other (CHF) Mother other (Lymphedema) Mother other (renal failure) Mother Psoriasis Brother other (cirrhosis) Brother from aneurysm at age 38 other (psoriasis) Brother Social History: Social History Tobacco Use Smoking status: Passive Smoke Exposure - Never Smoker Smokeless tobacco: Never Used Tobacco comment: Parents both smoked in childhood home. No household ETS since. Vaping Use Vaping Use: Never used Substance Use Topics Alcohol use: No Drug use: No Medications: Current Outpatient Medications Medication Sig triamcinolone acetonide (KENALOG) 0.1 % ointment Apply to affected area twice daily. melatonin 5 mg tablet Take 6 tablets by mouth daily at bedtime. BIOTIN ORAL Take 1 tablet by mouth once daily. insulin glargine (LANTUS U-100 INSULIN) 100 unit/mL injection Inject 50 Units subcutaneously twice daily. Via Syringe insulin aspart U-100 (NOVOLOG FLEXPEN U-100 INSULIN) 100 unit/mL (3 mL) Inject 17 Units subcutaneously three times daily before meals. ferrous sulfate 325 mg (65 mg iron) tablet Take 1 tablet by mouth twice daily with meals. clopidogrel (PLAVIX) 75 mg tablet Take 1 tablet by mouth once daily. aspirin 81 mg chewable tablet Take 324 mg by mouth once daily. traZODone (DESYREL) 100 mg tablet Take 2 tablets by mouth daily at bedtime. apremilast (OTEZLA) 30 mg tablet Take 1 tablet by mouth once daily. atorvastatin (LIPITOR) 10 mg tablet Take 1 tablet by mouth once daily. carvedilol (COREG) 12.5 mg tablet Take 1 tablet by mouth twice daily. levothyroxine (LEVOXYL) 88 mcg tablet Take 1 tablet by mouth once daily. Take on empty stomach. For Thyroid pantoprazole DR (PROTONIX) 40 mg tablet Take 1 tablet by mouth once daily. As needed for upset stomach rOPINIRole (REQUIP) 1 mg tablet Take one tab in the morning and 2 in the evening sertraline (ZOLOFT) 50 mg tablet Take 1 tablet by mouth once daily. torsemide (DEMADEX) 20 mg tablet Take 2 tablets by mouth once daily. (Patient taking differently: Take 60 mg by mouth once daily. ) sevelamer carbonate (RENVELA) 800 mg tablet Take by mouth. Taking 2 tablet with breakfast, 2 tablet with lunch, and 2 tablets with dinner as directed. B Complex-Vitamin C-Folic Acid (RENAL VITAMIN) 0.8 mg tab Take 1 tablet by mouth once daily. tacrolimus IR (PROGRAF) 0.5 mg capsule Take 1 capsule by mouth twice daily. cholecalciferol (VITAMIN D3) 1,000 unit tab tablet Take 1,000 Units by mouth twice daily. vitamin B complex (B COMPLEX-VITAMIN B12 ORAL) Take 5,000 mcg by mouth once daily. Ascorbic Acid (VITAMIN C) 1,000 mg tablet Take 1,000 mg by mouth once daily. Blood-Glucose Transmitter (DEXCOM G6 TRANSMITTER) brady Apply new transmitter every 90 days. Clean transmitter with an alcohol swab with each sensor change. Blood-Glucose Meter,Continuous (DEXCOM G6 CHIP BIN OPERATOR) [facility] Use to check blood sugar at least four (4) times daily. Blood-Glucose Sensor (DEXCOM G6 SENSOR) brady Apply new sensor every ten (10) days to abdomen. Insulin Syringe-Needle U-100 0.5 mL 31 gauge x 5/16 Use to inject insulin 5 times daily as directed. colchicine 0.6 mg tablet Take 0.5 tablet by mouth once daily for 14 days nitroglycerin sublingual (NITROQUICK) 0.4 mg SL tablet Dissolve 1 tablet under the tongue every 5 minutes as needed for chest pain. blood sugar diagnostic (BLOOD GLUCOSE TEST) test strip Test blood sugar(s) 5 times daily. Dx: Type 2 DM - Controlled E11.9 Insulin: Yes Blood-Glucose Meter monitoring kit Glucose Meter of Choice - Kit - Dx: Type 2 DM - Uncontrolled E11.65 with hypoglycemia Insulin: yes ACCU-CHEK MULTICLIX LANCET lancets TEST BLOOD SUGAR 4 TO 5 TIMES DAILY. + Nebulizer Supplies Nebulizer, Mask, & O2 Tubing. Use as directed. Current Facility-Administered Medications Medication Dose Route Frequency perflutren lipid microspheres 1.3 mL in NaCl (PF) 0.9% 10 mL injection (DEFINITY) INTRAVENOUS DIRECTED PRN sodium chloride 0.9 % (flush) 10 mL (BD POSIFLUSH) 10 mL INTRAVENOUS DIRECTED PRN Allergies: Clindamycin, Buspar [Buspirone Hcl], Duricef [Cefadroxil], Keflex [Cephalexin], Lisinopril, Losartan, Naprosyn [Naproxen], Niaspan [Niacin], Sulfa (Sulfonamide Antibiotics), and Unasyn [Ampicillin-Sulbactam] ROS: General (negative for fatigue, malaise, weight loss/gain) HEENT (negative for headache, earache, recent vision changes, sinus pain, sore throat) Respiratory (no recent shortness of breath, hemoptysis) CV (negative for chest tightness, palpitations) Musculoskeletal (see HPI) Psych (no depression, anxiety) REFERRING PHYSICIAN: Ms. Christnia Guerrier was referred to md for consultation by the following physician. This consultation note will be sent to the following physician by either mail or electronic medical record. Josse Lance [address] [facility] [address] Jame Hunt MD [address] [facility] [address] Charbel Esparza MD documented in this encounter [facility] 07-21-2021 Miscellaneous Notes Patient calling said [employer] has faxed forms for her power chair to the office several times and not getting anything returned. Gave her fax number for the office. Aware PCP has been out of office due back Saturday. Advised if [employer] putting note on form as to what they are needing completed or corrected? She said she was calling them back and asking them to do that. Patient said this has been going on since March trying to get the power chair. Please advise documented in this encounter [facility] 07-13-2021 Miscellaneous Notes Patient notified that prescription was sent to the pharmacy and verbalized understanding. Rx refill sent to [facility]. PDMP website checked and validated. All prescriptions have been APPROPRIATELY filled. No suspicious activity was identified. 07/13/2021 by Josse Lance APRN.IT SECURITY ENGINEER Patient called to check on her request for medication; does not see Ortho until 07/27/21. Please send to [facility] [place]; added to file. Please call her today. Patient said Josse Lance referred her to ortho for wrist pain. Patient can't get in until 07/27/21. Wants to know if she can have a refill of [place] or another rx for the pain. Please advise at [phone]. documented in this encounter [facility] 07-13-2021 Miscellaneous Notes PharmD printed out and completed Physician Order form for [facility] - placed on PCP's desk for signature. Will also need PCP's last chart note from 05/23/21 addended to include the following information: - Patient checking BGs 4x/day - Patient is adjusting insulin dose based on BG readings - Patient is injecting insulin 4 times daily Once completed, will plan to fax to [employer]. Kim La PharmD, [facility] Primary Care Clinical Pharmacist Julia Gu [facility] documented in this encounter [facility] 07-12-2021 Miscellaneous Notes I called [facility] today at the number provided below. Spoke with a very helpful outbound call center representative named Lokesh who said the order needs to be submitted through medical benefit to [employer]. PharmNichole will plan to resubmit paperwork tomorrow. No letter or fax. I called the per PA response [employer] at [phone] PharmNichole spoke with patient (can see MyC msg from today and also a replay from 06/29 MyC msg). Patient is certain her insurance will cover Dexcom if it is process through prescription vs medical. She said that [employer] states more info is needed but was not provided more information. Has our office received any fax or letters from [facility] regarding what information we may be missing? PharmNichole sent a MyChart msg to patient today to see if she is aware if insurance prefers [employer] [place] 2. The patient notified PharmNichole last month that her insurance should cover Dexcom [facility] Will await patient response. Kim La PharmD, [facility] Primary Care Clinical Pharmacist Julia Gu [facility] Called number and the PA needs to come from the pharmacy. They are asking for code DME H. The Dr office does not have this code. This call reference number is [id number]. Call to [facility] and pharmacist doesn't have this info either. He doesn't believe this would be covered.What about a [employer] [place]? Images from the original note were not included. Per covermymeds PA response. Per PA for dexcom transmitter. PER the pharmacy this needs to have Prior Authorization thru her medical insurance not a covered benefit. documented in this encounter [facility] 07-12-2021 Miscellaneous Notes PharmD called [employer] ([phone]) and spoke with outbound call center representative, Lokesh. Sees that authorization was submitted on July 10 and it is pending. He reported the authorization was submitted incorrectly as pharmacy benefit instead of a medical benefit. He said application needs to be submitted through [facility] [employer] (contact number provided: ). PharmD will plan to resubmit application through [facility] tomorrow when in the [place] office. Kim La PharmD, [facility] Primary Care Clinical Pharmacist Cathryn LE[facility] documented in this encounter [facility] 07-09-2021 Miscellaneous Notes Patient is scheduled Patient notified of providers message and verbalized understanding. Patient would like to see orthopedic doctor. Encounter routed to PSR to assist patient in scheduling. Please let her know that her ESR and CRP are reduced from previous. X-ray does not show inflammatory arthropathy. It does show arthritic changes. It also shows diffuse osteopenia. Recommend consider seeing orthopedic doctor for hands if not feeling improved with current treatment. documented in this encounter [facility] 07-03-2021 Miscellaneous Notes Addended by: JOSSE LANCE on: 07/03/2021 11:41 AM Modules accepted: Orders documented in this encounter [facility] 07-03-2021 History of Present illness Narrative Images from the original note were not included. SUBJECTIVE: SHINGRIX VACCINE(1 of 2) Never done COLORECTAL CANCER SCREENING due on 10/12/2017 PAP TESTING due on 03/05/2020 HPI Christina Guerrier is a 66 year old female. 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 Osteoporosis Osteomalacia, Unspecified Celiac Disease Unspecified Vitamin D Deficiency Liver Replaced By Transplant (Hcc) Complications of Transplanted Liver (Hcc) Need for Prophylactic Immunotherapy Hypersplenism Raul (Obstructive Sleep Apnea) Summary T2dm (Type 2 Diabetes Mellitus) (Hcc) Hypertension Recurrent Cellulitis of Lower Leg Acquired Hypothyroidism Sandhya (Iron Deficiency Anemia) Iron Malabsorption Anemia of Chronic Kidney Failure, Stage 4 (Severe) (Hcc) Ckd (Chronic Kidney Disease) Stage 4, Gfr 15-29 Ml/Min (Hcc) Anemia in Stage 4 Chronic Kidney Disease (Hcc) Obesity, Class Iii, Bmi 40-49.9 (Morbid Obesity) (Hcc) Pain in Right Hip Cellulitis of Back Hx of Transfusion Thrombocytopenia, Secondary Lymphedema Grade II Diastolic Dysfunction Bilateral Lower Extremity Edema Sob (Shortness of Breath) On Exertion Encounter for Screening for Cardiovascular Disorders Primary Hypertension Abnormal Stress Test Cancer (Hcc) Krueger's Palsy Coronary Artery Disease Involving [place] Coronary Artery of [place] Heart Without Angina Pectoris Stable Angina (Hcc) Hospital Discharge Follow-Up PCP: Jame Hunt MD Presents today with report of right hand pain since yesterday. States no injury or fall that brought this on. She woke with right hand pain at the base of her thumb and some mild swelling of her right thumb and wrist. Pain is increased with movement of her thumb. Alleviated with compression. She notes chronic left wrist pain and thumb which is intermittent, currently mild. Present for 2 years. She notes history of liver transplant. Renal disease on dialysis. Diabetes which is currently controlled. She reports intolerance to prednisone with blood sugar elevation. Review of Systems Constitutional: Negative. Musculoskeletal: Positive for arthralgias. Objective BP 122/56 Pulse 76 Resp 16 Wt 112.9 kg (249 lb) BMI 41.44 kg/m Physical Exam Vitals and nursing note reviewed. Constitutional: Appearance: She is ill-appearing. She is not toxic-appearing. HENT: Head: Normocephalic and atraumatic. Eyes: Conjunctiva/sclera: Conjunctivae normal. Cardiovascular: Rate and Rhythm: Normal rate. Pulmonary: Effort: Pulmonary effort is normal. Musculoskeletal: Right hand: Swelling (minor) and tenderness present. Normal range of motion. Normal capillary refill. Normal pulse. Left hand: Normal range of motion. Normal capillary refill. Normal pulse. Hands: Comments: TTP right wrist, right thumb base, increased pain with movement Skin: General: Skin is warm and dry. Neurological: General: No focal deficit present. Mental Status: She is alert. ALLERGIES Allergen Reactions Clindamycin Vomiting Buspar [Buspirone H* Hives Duricef [Cefadroxil] Hives Keflex [Cephalexin] Rash rash but unsure if it is from keflex Lisinopril Swelling Losartan Swelling Naprosyn [Naproxen] Other: See Comments lowers platelets Niaspan [Niacin] Hives Sulfa (Sulfonamide * Hives Unasyn [Ampicillin-* Hives MEDICATIONS triamcinolone acetonide (KENALOG) 0.1 % ointment, Apply to affected area twice daily. melatonin 5 mg tablet, Take 6 tablets by mouth daily at bedtime. BIOTIN ORAL, Take 1 tablet by mouth once daily. Insulin Syringe-Needle U-100 0.5 mL 31 gauge x 5/16 , Use to inject insulin 5 times daily as directed. insulin glargine (LANTUS U-100 INSULIN) 100 unit/mL injection, Inject 50 Units subcutaneously twice daily. Via Syringe insulin aspart U-100 (NOVOLOG FLEXPEN U-100 INSULIN) 100 unit/mL (3 mL), Inject 17 Units subcutaneously three times daily before meals. colchicine 0.6 mg tablet, Take 0.5 tablet by mouth once daily for 14 days ferrous sulfate 325 mg (65 mg iron) tablet, Take 1 tablet by mouth twice daily with meals. clopidogrel (PLAVIX) 75 mg tablet, Take 1 tablet by mouth once daily. nitroglycerin sublingual (NITROQUICK) 0.4 mg SL tablet, Dissolve 1 tablet under the tongue every 5 minutes as needed for chest pain. aspirin 81 mg chewable tablet, Take 324 mg by mouth once daily. traZODone (DESYREL) 100 mg tablet, Take 2 tablets by mouth daily at bedtime. apremilast (OTEZLA) 30 mg tablet, Take 1 tablet by mouth once daily. atorvastatin (LIPITOR) 10 mg tablet, Take 1 tablet by mouth once daily. blood sugar diagnostic (BLOOD GLUCOSE TEST) test strip, Test blood sugar(s) 5 times daily. Dx: Type 2 DM - Controlled E11.9 Insulin: Yes carvedilol (COREG) 12.5 mg tablet, Take 1 tablet by mouth twice daily. levothyroxine (LEVOXYL) 88 mcg tablet, Take 1 tablet by mouth once daily. Take on empty stomach. For Thyroid pantoprazole DR (PROTONIX) 40 mg tablet, Take 1 tablet by mouth once daily. As needed for upset stomach rOPINIRole (REQUIP) 1 mg tablet, Take one tab in the morning and 2 in the evening sertraline (ZOLOFT) 50 mg tablet, Take 1 tablet by mouth once daily. torsemide (DEMADEX) 20 mg tablet, Take 2 tablets by mouth once daily. sevelamer carbonate (RENVELA) 800 mg tablet, Take by mouth. Taking 1 tablet with breakfast, 1 tablet with lunch, and 2 tablets with dinner as directed. B Complex-Vitamin C-Folic Acid (RENAL VITAMIN) 0.8 mg tab, Take 1 tablet by mouth once daily. tacrolimus IR (PROGRAF) 0.5 mg capsule, Take 1 capsule by mouth twice daily. Blood-Glucose Meter monitoring kit, Glucose Meter of Choice - Kit - Dx: Type 2 DM - Uncontrolled E11.65 with hypoglycemia Insulin: yes cholecalciferol (VITAMIN D3) 1,000 unit tab tablet, Take 1,000 Units by mouth twice daily. vitamin B complex (B COMPLEX-VITAMIN B12 ORAL), Take 5,000 mcg by mouth once daily. Ascorbic Acid (VITAMIN C) 1,000 mg tablet, Take 1,000 mg by mouth once daily. ACCU-CHEK MULTICLIX LANCET lancets, TEST BLOOD SUGAR 4 TO 5 TIMES DAILY. + Nebulizer Supplies, Nebulizer, Mask, & O2 Tubing. Use as directed. HYDROcodone-Acetaminophen (NORCO) 7.5-325 mg per tablet, Take 1 tablet by mouth twice daily at 6AM and 9PM for 3 days. PAST MEDICAL HISTORY Diagnosis Date Abdominal pain 12/21/2014 Diffuse abdominal pain x 6 days Worsened with palpation on LLQ and epigastric No diarrhea no vomiting no alcohol drink no sick contact no change in stool no melena Ddx: viral GI vs any intraabdominal pathology or infection in a setting of immunosuppressed patient Plan CT abd wo Levin culture Acute renal failure superimposed on stage 4 chronic kidney disease (HCC) 01/02/2020 Anemia Anemia in stage 4 chronic kidney disease (HCC) 12/17/2016 Anemia of chronic kidney failure, stage 4 (severe) (HCC) 12/11/2016 Anxiety Arthritis Krueger's palsy CAD (coronary artery disease) Cancer (HCC) uterine and cervical Celiac disease 2007 Cellulitis of back except buttock Cirrhosis of liver without mention of alcohol CKD (chronic kidney disease) Dialysis M/W/F [facility] COPD (chronic obstructive pulmonary disease) (HCC) Diabetes mellitus without mention of complication Diabetic polyneuropathy ([facility]) 02/04/2017 Disorder of thyroid DVT (deep venous thrombosis) ([facility]) Esophageal reflux Hammer toes, bilateral 11/30/2016 History of transfusion Hypertension Incisional hernia 12/30/2008 Liver replaced by transplant ([facility]) 2008 - 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 Plan: - Continue Tacrolimus 1.5 mg BID - daily Tacrolimus levels - Continue Otezla 30 mg BID Lymphedema RAUL (obstructive sleep apnea) does not use CPAP Other and unspecified hyperlipidemia Other lymphedema runs in family PMH - PAST MEDICAL HISTORY OF 1999 endometrial cancer, had complete hysterectomy Psoriasis and similar disorders [place]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 No household ETS since. Vaping Use Vaping Use: Never used Substance Use Topics Alcohol use: No Drug use: No Component Latest Ref Rng & Units 05/10/2021 WBC 3.70 - 11.00 k/uL 3.56 (L) RBC 3.90 - 5.20 m/uL 3.00 (L) Hemoglobin 11.5 - 15.5 g/dL 9.3 (L) Hematocrit 36.0 - 46.0 % 30.6 (L) MCV 80.0 - 100.0 fL 102.0 (H) MCH 26.0 - 34.0 pg 31.0 MCHC 30.5 - 36.0 g/dL 30.4 (L) RDW-CV 11.5 - 15.0 % 17.9 (H) Platelet Count 150 - 400 k/uL 93 (L) MPV 9.0 - 12.7 fL 12.0 Neut% % 76.7 Abs Neut (ANC) 1.45 - 7.50 k/uL 2.73 Lymph% % 12.6 Abs Lymph 1.00 - 4.00 k/uL 0.45 (L) [place]% % 6.5 Abs [place] <0.87 k/uL 0.23 Eosin% % 2.5 Abs Eosin <0.46 k/uL 0.09 Baso% % 0.3 Abs Baso <0.11 k/uL <0.03 Immature Gran % % 1.4 IMMATURE GRANS (ABS) <0.10 k/uL 0.05 NRBC /100 WBC 0.6 Absolute nRBC <0.01 k/uL 0.02 (H) DTYPE Auto Protein, Total 6.3 - 8.0 g/dL 7.1 Albumin 3.9 - 4.9 g/dL 3.9 Calcium 8.5 - 10.2 mg/dL 9.5 Bilirubin, Total 0.2 - 1.3 mg/dL 0.5 Alkaline Phosphatase 34 - 123 U/L 145 (H) AST 13 - 35 U/L 30 ALT 7 - 38 U/L 41 (H) Glucose 74 - 99 mg/dL 254 (H) BUN 7 - 21 mg/dL 12 Creatinine 0.58 - 0.96 mg/dL 2.80 (H) Sodium 136 - 144 mmol/L 137 Potassium 3.7 - 5.1 mmol/L 4.2 Chloride 97 - 105 mmol/L 95 (L) CO2 22 - 30 mmol/L 32 (H) Anion Gap 9 - 18 mmol/L 10 eGFR >=60 mL/min/1.73m 18 (L) Cholesterol, Total <200 mg/dL 163 Triglyceride <150 mg/dL 386 (H) HDL Cholesterol >39 mg/dL 31 (L) Non HDL Cholesterol <130 mg/dL 132 (H) Fasting Time hrs 15 VLDL Cholesterol <30 mg/dL 77 (H) TC:HDL Ratio <5.10 5.26 (H) LDL Cholesterol <100 mg/dL 55 LDL:HDL Ratio <2.54 1.77 Hemoglobin A1C 4.3 - 5.6 % 7.3 (H) Estimated Average Glucose mg/dL 163 GGT 6 - 46 U/L 42 Magnesium 1.7 - 2.3 mg/dL 2.1 Phosphorus 2.7 - 4.8 mg/dL 1.9 (L) ASSESSMENT/PLAN: 1. Bilateral wrist pain - ICD9: 719.43, ICD10: M25.531, M25.532 (primary diagnosis) - XR HAND GENERAL 3V PA/LAT/OBL RIGHT - XR HAND GENERAL 3V PA/LAT/OBL LEFT - CONSULT TO ORTHOPAEDICS 2. Chronic pain of left wrist - ICD9: 719.43, 338.29, ICD10: M25.532, G89.29 - XR HAND GENERAL 3V PA/LAT/OBL RIGHT - XR HAND GENERAL 3V PA/LAT/OBL LEFT - CONSULT TO ORTHOPAEDICS 3. Acute pain of right wrist - ICD9: 719.43, ICD10: M25.531 - XR HAND GENERAL 3V PA/LAT/OBL RIGHT - XR HAND GENERAL 3V PA/LAT/OBL LEFT - CONSULT TO ORTHOPAEDICS - C-REACTIVE PROTEIN (CRP) - SED RATE WESTERGREN - HYDROCODONE 7.5 MG-ACETAMINOPHEN 325 MG TABLET Presents today with report of acute onset of right wrist and base of thumb pain. States no injury. Awoke from sleep with this. Notes she cannot take prednisone because it elevates her blood sugar too much. Status post liver transplant, also on dialysis.. She notes relief with Odette wrap so would continue with that. X-ray today. Labs to check for inflammatory process. Schedule with orthopedic provider for further evaluation, recommendations and treatment. Josse Lance APRN.CNS Medical Decision Making: Problems: Moderate: 2+ stable chronic illnesses Data: Unique test(s) ordered: 3+ Risk: Moderate: Drug management Medical Decision Making Level: 4 - Moderate documented in this encounter [facility] 07-03-2021 Miscellaneous Notes Did we ever receive the fax that [facility] said they were sending over? Noted. Please le us know if you need anything from PCP. Thank you Silva Plasencia APRN.NATHALY Noted, once fax is received place document it and place on PharmNichole's desk. Thanks! Kim La PharmD, [facility] Primary Care Clinical Pharmacist Julia Gu [facility] Rossana @ [employer] calling to let PCP know she is faxing a new order form for Dexcom G6 System. She states the original order was incomplete. Amadeo Mar RN documented in this encounter [facility] 06-13-2021 Miscellaneous Notes Tonya from [facility] calling asking for paper work to be faxed to [phone]. Found paper work and faxed as requested. Current paperwork and orders sent to [facility]. We will await response. Franci Quinn LPN Franci. Do we have the paper work we sent to the [facility] people? How do I order for this? dont we get a form that we need to fill? Christina Guerrier is calling Jame Hunt MD today to request an order for a motorized scooter. Patient said this has been requested before but sent to [facility] who did not have the scooter in stock. Patient asking if an order can be faxed to [facility]. Please fax order to [phone]. Patient asking tor a return call.No chief complaint on file. Patient has been identified by name and birthdate. Duration of symptoms: N/A Person calling: self Call patient at: on cell [phone] (home) [phone] (cell) Was an appointment scheduled: No Closing statement: Results or non-symptom based questions: Thank you for calling [facility], your call will be returned within the next business day. Veronica Richard documented in this encounter [facility] 06-08-2021 Miscellaneous Notes Script for Novolog sent. The following approved medication requests have been transmitted electronically. Signed Prescriptions Disp Refills insulin aspart U-100 (NOVOLOG FLEXPEN U-100 INSULIN) 100 unit/mL (3 mL) 50 mL 3 Sig: Inject 17 Units subcutaneously three times daily before meals. Authorizing Provider: JAME HUNT Ordering User: KIM LA RPh [facility] calling to say Humalog Insulin is non formulary and will cost patient $900. They are asking for formulary substitution of Novolog which is covered by insurance. Amadeo Mar RN documented in this encounter [facility] 06-08-2021 Miscellaneous Notes PharmD completed [employer] CMN form. PCP signed form and chart note and faxed to [facility] today. Kim La PharmD, [facility] Primary Care Clinical Pharmacist Julia Gu [facility] documented in this encounter [facility] 06-08-2021 History of Present illness Narrative Primary Care Pharmacy Visit CC (Reason for Consult): Diabetes Goal: A1c < 8% Collaborating Provider: Dr. Hunt Last Provider Visit: 05/23/21 Christina Guerrier is a 65 year old female presenting for initial visit: This initial consult was conducted in person with the patient where the consult agreement was explained. The patient may decline or cancel the agreement at any time. After consideration, the patient consented to the pharmacy consult agreement and agreed to allow medications be collaboratively managed by a pharmacist.. Patient is presenting today for initial pharmacotherapy management appointment for diabetes. At last PCP appt, no med changes made but steps were taken to order patient a CGM. 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 Subjective: HPI: Main goal for patient is to get a CGM. She is checking BG 4x/day. Sugars are erratic especially since starting dialysis. Has a lot of bruising on her fingers. Constantly has dry mouth. Doesn't urinate at all because of dialysis. Not allowed to drink a lot of water because of dialysis. Started dialysis in October 2020, blood sugars have been elevated since starting dialysis (gets dialysis on MWF). She recently received unit(s)-100 syringes and the markings go up by 10, makes it difficult for her to find 14 and 45 units, would prefer unit(s)-50 syringes. Current DM Medications: Insulin glargine (Lantus) 44 units BID (taking 45 units BID) Insulin aspart (Novolog) 15 units TIDAC (taking BID, skips eating breakfast) Current HTN Medications: Carvedilol 12.5mg BID Torsemide 20mg tabs - 40mg daily GLYCEMIC CONTROL: Glucometer present at visit: Yes SMBG s: checking BGs 4x/day; yesterday AM BG was 162 mg/dL; other readings usually a little over 200 mg/dL; last night did have a BG ~300 mg/dL; reports FBGs usually 140s-160s; sees BGs >200 daily in the afternoon/evening; PharmD reviewed meter, lowest BG in the past few months is 149 mg/dL, majority of BGs are 200s-400s Hypoglycemia: none How corrected: drinks milk, OJ, followed with PB sandwich; also has glucose tabs Preventative Medications: On ODETTE/ARB: No On Statin: Yes ROS: Patient denies CP, SOB, VIDES, blurred vision, dizziness or lightheadedness Patient denies symptoms of hypoglycemia (sweating, anxiety, palpitations, hunger, and tremor) Patient denies symptoms of hyperglycemia (polyuria, polydipsia, polyphagia) Patient denies potential medication adverse effects DIET/EXERCISE/SOCIAL Hx: On dialysis Drinking protein shakes frequently as recommended by dialysis team Eats 2 meals per day (skips breakfast, usually just has a protein shake) Beverages are limited. Drinks [place] Crush (its the only thing she can stomach; 1 can lasts 1 day) MEDICATIONS: Pill bottles are not present Adherence: denies missed doses [facility]: [facility] Rx coverage: [employer] H[employer] Medicare + [facility] Affordability: no issues Diabetes supplies: [employer] System: pill box ACTIVE PROBLEM LIST WOUND (NOT COMPLICATED) - OPEN 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 Osteoporosis Osteomalacia, Unspecified Celiac Disease Unspecified Vitamin D Deficiency Liver Replaced By Transplant (Hcc) Complications of Transplanted Liver (Hcc) Need for Prophylactic Immunotherapy Hypersplenism Raul (Obstructive Sleep Apnea) Summary T2dm (Type 2 Diabetes Mellitus) (Hcc) Hypertension Recurrent Cellulitis of Lower Leg Acquired Hypothyroidism Sandhya (Iron Deficiency Anemia) Iron Malabsorption Anemia of Chronic Kidney Failure, Stage 4 (Severe) (Hcc) Ckd (Chronic Kidney Disease) Stage 4, Gfr 15-29 Ml/Min (Hcc) Anemia in Stage 4 Chronic Kidney Disease (Hcc) Obesity, Class Iii, Bmi 40-49.9 (Morbid Obesity) (Hcc) Pain in Right Hip Cellulitis of Back Hx of Transfusion Thrombocytopenia, Secondary Lymphedema Grade II Diastolic Dysfunction Bilateral Lower Extremity Edema Sob (Shortness of Breath) On Exertion Encounter for Screening for Cardiovascular Disorders Primary Hypertension Abnormal Stress Test Cancer (Hcc) Krueger's Palsy Coronary Artery Disease Involving [place] Coronary Artery of [place] Heart Without Angina Pectoris Stable Angina (Hcc) Hospital Discharge Follow-Up PAST MEDICAL HISTORY Diagnosis Date Abdominal pain 12/21/2014 Diffuse abdominal pain x 6 days Worsened with palpation on LLQ and epigastric No diarrhea no vomiting no alcohol drink no sick contact no change in stool no melena Ddx: viral GI vs any intraabdominal pathology or infection in a setting of immunosuppressed patient Plan CT abd wo Levin culture Acute renal failure superimposed on stage 4 chronic kidney disease (HCC) 01/02/2020 Anemia Anemia in stage 4 chronic kidney disease (HCC) 12/17/2016 Anemia of chronic kidney failure, stage 4 (severe) (HCC) 12/11/2016 Anxiety Arthritis Krueger's palsy CAD (coronary artery disease) Cancer (HCC) uterine and cervical Celiac disease 2007 Cellulitis of back except buttock Cirrhosis of liver without mention of alcohol CKD (chronic kidney disease) Dialysis M/W/F [facility] COPD (chronic obstructive pulmonary disease) (HCC) Diabetes mellitus without mention of complication Diabetic polyneuropathy (HCC) 02/04/2017 Disorder of thyroid DVT (deep venous thrombosis) (HCC) Esophageal reflux Hammer toes, bilateral 11/30/2016 History of transfusion Hypertension Incisional hernia 12/30/2008 Liver replaced by transplant ([facility]) 2008 - Cirrhosis s/p OLT 2008 - Cirrhosis / [facility] Plan: - Continue Tacrolimus 1.5 mg BID - daily Tacrolimus levels - Continue Otezla 30 mg BID Lymphedema RAUL (obstructive sleep apnea) does not use CPAP Other and unspecified hyperlipidemia Other lymphedema runs in family PMH - PAST MEDICAL HISTORY OF 1999 endometrial cancer, had complete hysterectomy Psoriasis and similar disorders [place]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 ALLERGIES Allergen Reactions Clindamycin Vomiting Buspar [Buspirone H* Hives Duricef [Cefadroxil] Hives Keflex [Cephalexin] Rash rash but unsure if it is from keflex Lisinopril Swelling Losartan Swelling Naprosyn [Naproxen] Other: See Comments lowers platelets Niaspan [Niacin] Hives Sulfa (Sulfonamide * Hives Unasyn [Ampicillin-* Hives Medication List Medication Directions Comments Action/Plan + Nebulizer Supplies Nebulizer, Mask, & O2 Tubing. Use as directed. Has but not using; uses when she has a cold ACCU-CHEK MULTICLIX LANCET lancets TEST BLOOD SUGAR 4 TO 5 TIMES DAILY. supplies apremilast (OTEZLA) 30 mg tablet Take 1 tablet by mouth once daily. Taking daily Ascorbic Acid (VITAMIN C) 1,000 mg tablet Take 1,000 mg by mouth once daily. Taking daily Advised to drop to 500mg daily if gets started on CGM d/t possible sensor interference aspirin 81 mg chewable tablet Take 324 mg by mouth once daily. taking atorvastatin (LIPITOR) 10 mg tablet Take 1 tablet by mouth once daily. taking B Complex-Vitamin C-Folic Acid (RENAL VITAMIN) 0.8 mg tab Take 1 tablet by mouth once daily. taking blood sugar diagnostic (BLOOD GLUCOSE TEST) test strip Test blood sugar(s) 5 times daily. Dx: Type 2 DM - Controlled E11.9 Insulin: Yes supplies Blood-Glucose Meter monitoring kit Glucose Meter of Choice - Kit - Dx: Type 2 DM - Uncontrolled E11.65 with hypoglycemia Insulin: yes supplies carvedilol (COREG) 12.5 mg tablet Take 1 tablet by mouth twice daily. taking cholecalciferol (VITAMIN D3) 1,000 unit tab tablet Take 1,000 Units by mouth twice daily. Taking BID clopidogrel (PLAVIX) 75 mg tablet Take 1 tablet by mouth once daily. Taking daily colchicine 0.6 mg tablet Take 0.5 tablet by mouth once daily for 14 days Has for PRN gout flares; not currently using ferrous sulfate 325 mg (65 mg iron) tablet Take 1 tablet by mouth twice daily with meals. Taking BID insulin glargine (LANTUS U-100 INSULIN) 100 unit/mL injection Inject 44 Units subcutaneously twice daily. Via Syringe Taking 45 units with vial/syringe insulin lispro (HUMALOG KWIKPEN INSULIN) 100 unit/mL Inject 14 Units subcutaneously three times daily before meals. Not using, on Novolog Removed from med list Insulin Syringe-Needle U-100 0.5 mL 31 gauge x /16 Use to inject Lantus insulin twice daily as directed. Use to inject Novolog three times daily with meals supplies Insulin Syringe-Needle U-100 1 mL 29 gauge x 1/2 Use one syringe for each dose. 2 per day duplicate Removed from med list levothyroxine (LEVOXYL) 88 mcg tablet Take 1 tablet by mouth once daily. Take on empty stomach. For Thyroid taking nitroglycerin sublingual (NITROQUICK) 0.4 mg SL tablet Dissolve 1 tablet under the tongue every 5 minutes as needed for chest pain. Has for PRN use; has never used it (had 3 stents placed in heart in April) NOVOLOG U-100 INSULIN ASPART 100 unit/mL Inject 14 Units subcutaneously three times daily. Taking [address] (PROTONIX) 40 mg tablet Take 1 tablet by mouth once daily. As needed for upset stomach taking rOPINIRole (REQUIP) 1 mg tablet Take 1 tab in the morning and 2 tabs in the evening Taking as prescribed for RLS rOPINIRole (REQUIP) 1 mg tablet Take one tab in the morning and 2 in the evening Patient not taking: Reported on 04/05/2021 Duplicate Removed from med list sertraline (ZOLOFT) 50 mg tablet Take 1 tablet by mouth once daily. taking sevelamer carbonate (RENVELA) 800 mg tablet Take 2 tablets by mouth. Taking 1 tablet with breakfast and lunch and 2 tabs with dinner External script says to take 2 tabs TIDAC. Patient reports people at dialysis instruct her to take 1 tab with breakfast, 1 tab with lunch, and 2 tabs with dinner. Will update med list accordingly. tacrolimus IR (PROGRAF) 0.5 mg capsule Take 1 capsule by mouth twice daily. Taking BID torsemide (DEMADEX) 20 mg tablet Take 2 tablets by mouth once daily. Taking 3 tablets daily. States dialysis doctor advised her to take this, has been on this dose for a long time. External fill hx indicates BID dosing though patient confident taking 3 tabs/day, was changed by dialysis doctor. Will update med list accordingly. traZODone (DESYREL) 100 mg tablet Take 2 tablets by mouth daily at bedtime. Taking nightly vitamin B complex (B COMPLEX-VITAMIN B12 ORAL) Take 5,000 mcg by mouth once daily. Taking daily Rx meds not listed in EPIC: Triamcinolone acetonide 0.1% ointment for psoriasis; gets monthly injections of Mircera OTCs: none Herbals: melatonin 5mg tabs - 30mg nightly; biotin hair and nails daily Objective: Exam: Last 3 Encounter BP Readings: Date: BP: 05/23/2021 126/56 04/11/2021 118/55 04/05/2021 144/70 Wt: 112.9 kg (249 lb) BMI: 41.44 kg/(m^2) LABS: Reviewed Lab Results Component Value Date HBA1C 7.3 05/10/2021 HBA1C 7.2 11/15/2020 HBA1C 6.6 05/05/2020 HBA1C 8.0 01/02/2020 CMP: Glucose 254 05/10/2021 BUN 12 05/10/2021 Creatinine 2.80 05/10/2021 Sodium 137 05/10/2021 Potassium 4.2 05/10/2021 Chloride 95 05/10/2021 CO2 Content, Venous 32 05/10/2021 Protein, Total 7.1 05/10/2021 Albumin 3.9 05/10/2021 Calcium 9.5 05/10/2021 Alkaline Phosphatase 145 05/10/2021 Bilirubin, Total 0.5 05/10/2021 AST 30 05/10/2021 ALT 41 05/10/2021 ESRD on dialysis Estimated Creatinine Clearance: 25.8 mL/min (A) (based on SCr of 2.8 mg/dL (H)). Lab Results Component Value Date CHOL 163 05/10/2021 CHOL 145 04/12/2021 LDL 55 05/10/2021 LDL 43 04/12/2021 HDL 31 05/10/2021 HDL 32 04/12/2021 TG 386 05/10/2021 TG 349 04/12/2021 The 10-year ASCVD risk score (Epifanio MONROY Jr., et al., 2013) is: 13% Values used to calculate the score: Age: 65 years Sex: Female Is Non- : No Diabetic: Yes Tobacco smoker: No Systolic Blood Pressure: 126 mmHg Is BP treated: Yes HDL Cholesterol: 31 mg/dL Total Cholesterol: 163 mg/dL Albumin/Creat Ratio (mg/g) Date Value 05/19/2020 254 (H) PHARMACOTHERAPY ASSESSMENT/PLAN: 1. Type 2 diabetes mellitus with microalbuminuria, with long-term current use of insulin (HCC) - ICD9: 250.40, 791.0, V58.67, ICD10: E11.29, R80.9, Z79.4 (primary diagnosis) A1c goal < 8%; controlled (last A1c 7.3%) though A1c likely falsely low d/t dialysis; BGs are poorly controlled, majority of BGs in past few weeks are >200 mg/dL, lowest was 149 mg/dL; no issues with low BGs; has frequent dry mouth and thirst (no urination d/t dialysis); patient checking her blood sugars 4+ times per day and injecting insulin 5 times daily; patient would be an excellent candidate for CGM so will apply for Dexcom G6 today to assist with better BG control with dialysis; will also increase insulin today since BGs are so elevated INCREASE Lantus to 50 units BID INCREASE Novolog to 17 units TIDAC Advised to contact PharmD if starts experiencing any low BGs (confirmed patient knows how to treat lows appropriately) Ordered 0.5mL syringes at patient request PharmD to start application for Dexcom G6, will apply to [employer] to see if that is a preferred company 2. Medication management - ICD9: V58.69, ICD10: Z79.899 Reviewed all medications, indications, dosing, frequency, administration with patient. Medication list updated as described above. Patient is scheduled to see PCP on 08/24. Will based PharmD f/u on CGM order status, OR f/up in 1 mo to review SMBG log. Patient verbalized understanding of instructions. Kim La PharmD, [facility] Primary Care Clinical Pharmacist Julia Gu [facility] The majority of the pharmacy visit (> 50%) was spent counseling and/or coordinating care for the patient. interaction: face to face time was 55 minutes. documented in this encounter [facility] 06-08-2021 Instructions Kim La RPh - 06/08/2021 3:00 PM EDT INCREASE Lantus to 50 units twice daily INCREASE Novolog to 17 units with meals Continue monitoring your blood sugars. PharmD will work on getting order submitted for continuous glucose monitor. Contact PharmD if any issues with low blood sugars. documented in this encounter [facility] 06-08-2021 Miscellaneous Notes Addended by: KIM LA on: 06/08/2021 04:09 PM Modules accepted: Orders documented in this encounter [facility] 06-02-2021 Miscellaneous Notes This was faxed 03/29/21. Will refax today 06/02. Patient is calling in today still waiting on scooter. [facility] is still waiting on the actual order for this. [facility] phone number is [phone] If you can please send an order so that the patient is able to move forward with this. Zoë Lemons Pss This would not be a prior auth for medicine. Would think where ever pt is getting the scooter from would complete the prior auth. Pt would need an appt to review this need. Normally done when paper work rec'd from the office from whatever [employer] company pt is using for this. Please set the prior auth in motion Patient reports [employer] tells her pcp needs to do a PA for the electric scooter. Prior Authorization Documentation Prior authorization requested for the following medication: Medication: Electric Scooter Provider: [employer] Company Name: [employer] Phone number: [phone] Patient ID number: [id number] Pharmacy Name: [facility] is out of them - will not get more until August or September Pharmacy Telephone number: Will find out from [employer] where can get one from. Patient also wants pcp to know she had heart cath done on , and will need triple bypass. Patient reports she spoke with surgeon yesterday- and surgeon will call her next at 8:30 am to let her know. 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 Fever 12/21/2014 09/05/2016 Overview: Episode of fever 101.7 Currently on tacrolimus post transplant Denies any chills or any other symptoms except abdominal pain x 6 days Assessment: wide differentials including any GI related vs abscess ( intraabdominal) vs others Plan Levin culture ( urine blood) Monitor closely and low threshold to start IV Abx CT abdomen to look for any intraabdominal process Abdominal pain 12/21/2014 11/29/2020 Overview: Diffuse abdominal pain x 6 days Worsened with palpation on LLQ and epigastric No diarrhea no vomiting no alcohol drink no sick contact no change in stool no melena Ddx: viral GI vs any intraabdominal pathology or infection in a setting of immunosuppressed patient Plan CT abd wo Levin culture Rectal cancer 08/29/2011 05/12/2020 Last Assessment & Plan: Had a colonoscopy in 2014 and 2015 , she will go back next year for the same Incisional hernia 12/30/2008 11/29/2020 Malignant neoplasm of other specified sites of s tomach 11/03/2004 11/03/2004 documented as of this encounter (statuses as of 06/08/2021) [facility]10-[facility]-2020 History of Past illness Narrative* Problem Noted Date Resolved Date Acute renal failure superimp osed on stage 4 chronic kidney disease 01/02/2020 11/29/2020 Shortness of breath 11/23/2019 11/29/2020 Meralgia paresthetica of right side 02/20/2018 06/09/2018 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 Fever 12/21/2014 09/05/2016 Overview: Episode of fever 101.7 Currently on tacrolimus post transplant Denies any chills or any other symptoms except abdominal pain x 6 days Assessment: wide differentials including any GI related vs abscess ( intraabdominal) vs others Plan Levin culture ( urine blood) Monitor closely and low threshold to start IV Abx CT abdomen to look for any intraabdominal process Abdominal pain 12/21/2014 11/29/2020 Overview: Diffuse abdominal pain x 6 days Worsened with palpation on LLQ and epigastric No diarrhea no vomiting no alcohol drink no sick contact no change in stool no melena Ddx: viral GI vs any intraabdominal pathology or infection in a setting of immunosuppressed patient Plan CT abd wo Levin culture Rectal cancer 08/29/2011 05/12/2020 Last Assessment & Plan: Had a colonoscopy in 2014 and 2015 , she will go back next year for the same Incisional hernia 12/30/2008 11/29/2020 Malignant neoplasm of other specified sites of s eveach 11/03/2004 11/03/2004 documented as of this encounter (statuses as of 06/08/2021) [facility]10[facility]2020 History of Past illness Narrative* Problem Noted Date Resolved Date Acute renal failure superimp osed on stage 4 chronic kidney disease 01/02/2020 11/29/2020 Shortness of breath 11/23/2019 11/29/2020 Meralgia paresthetica of right side 02/20/2018 06/09/2018 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 Fever 12/21/2014 09/05/2016 Overview: Episode of fever 101.7 Currently on tacrolimus post transplant Denies any chills or any other symptoms except abdominal pain x 6 days Assessment: wide differentials including any GI related vs abscess ( intraabdominal) vs others Plan Levin culture ( urine blood) Monitor closely and low threshold to start IV Abx CT abdomen to look for any intraabdominal process Abdominal pain 12/21/2014 11/29/2020 Overview: Diffuse abdominal pain x 6 days Worsened with palpation on LLQ and epigastric No diarrhea no vomiting no alcohol drink no sick contact no change in stool no melena Ddx: viral GI vs any intraabdominal pathology or infection in a setting of immunosuppressed patient Plan CT abd wo Levin culture Rectal cancer 08/29/2011 05/12/2020 Last Assessment & Plan: Had a colonoscopy in 2014 and 2015 , she will go back next year for the same Incisional hernia 12/30/2008 11/29/2020 Malignant neoplasm of other specified sites of s tomach 11/03/2004 11/03/2004 documented as of this encounter (statuses as of 06/09/2021) [facility]2020 History of Past illness Narrative* Problem Noted Date Resolved Date Acute renal failure superimp osed on stage 4 chronic kidney disease 01/02/2020 11/29/2020 Shortness of breath 11/23/2019 11/29/2020 Meralgia paresthetica of right side 02/20/2018 06/09/2018 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 Fever 12/21/2014 09/05/2016 Overview: Episode of fever 101.7 Currently on tacrolimus post transplant Denies any chills or any other symptoms except abdominal pain x 6 days Assessment: wide differentials including any GI related vs abscess ( intraabdominal) vs others Plan Levin culture ( urine blood) Monitor closely and low threshold to start IV Abx CT abdomen to look for any intraabdominal process Abdominal pain 12/21/2014 11/29/2020 Overview: Diffuse abdominal pain x 6 days Worsened with palpation on LLQ and epigastric No diarrhea no vomiting no alcohol drink no sick contact no change in stool no melena Ddx: viral GI vs any intraabdominal pathology or infection in a setting of immunosuppressed patient Plan CT abd wo Levin culture Rectal cancer 08/29/2011 05/12/2020 Last Assessment & Plan: Had a colonoscopy in 2014 and 2015 , she will go back next year for the same Incisional hernia 12/30/2008 11/29/2020 Malignant neoplasm of other specified sites of s tomach 11/03/2004 11/03/2004 documented as of this encounter (statuses as of 06/13/2021) [facility]2020 History of Past illness Narrative* Problem Noted Date Resolved Date Acute renal failure superimp osed on stage 4 chronic kidney disease 01/02/2020 11/29/2020 Shortness of breath 11/23/2019 11/29/2020 Meralgia paresthetica of right side 02/20/2018 06/09/2018 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 Fever 12/21/2014 09/05/2016 Overview: Episode of fever 101.7 Currently on tacrolimus post transplant Denies any chills or any other symptoms except abdominal pain x 6 days Assessment: wide differentials including any GI related vs abscess ( intraabdominal) vs others Plan Levin culture ( urine blood) Monitor closely and low threshold to start IV Abx CT abdomen to look for any intraabdominal process Abdominal pain 12/21/2014 11/29/2020 Overview: Diffuse abdominal pain x 6 days Worsened with palpation on LLQ and epigastric No diarrhea no vomiting no alcohol drink no sick contact no change in stool no melena Ddx: viral GI vs any intraabdominal pathology or infection in a setting of immunosuppressed patient Plan CT abd wo Levin culture Rectal cancer 08/29/2011 05/12/2020 Last Assessment & Plan: Had a colonoscopy in 2014 and 2015 , she will go back next year for the same Incisional hernia 12/30/2008 11/29/2020 Malignant neoplasm of other specified sites of s eveach 11/03/2004 11/03/2004 documented as of this encounter (statuses as of 06/15/2021) [facility] History of Past illness Narrative* Problem Noted Date Resolved Date Acute renal failure superimp osed on stage 4 chronic kidney disease 01/02/2020 11/29/2020 Shortness of breath 11/23/2019 11/29/2020 Meralgia paresthetica of right side 02/20/2018 06/09/2018 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 Fever 12/21/2014 09/05/2016 Overview: Episode of fever 101.7 Currently on tacrolimus post transplant Denies any chills or any other symptoms except abdominal pain x 6 days Assessment: wide differentials including any GI related vs abscess ( intraabdominal) vs others Plan Levin culture ( urine blood) Monitor closely and low threshold to start IV Abx CT abdomen to look for any intraabdominal process Abdominal pain 12/21/2014 11/29/2020 Overview: Diffuse abdominal pain x 6 days Worsened with palpation on LLQ and epigastric No diarrhea no vomiting no alcohol drink no sick contact no change in stool no melena Ddx: viral GI vs any intraabdominal pathology or infection in a setting of immunosuppressed patient Plan CT abd wo Levin culture Rectal cancer 08/29/2011 05/12/2020 Last Assessment & Plan: Had a colonoscopy in 2014 and 2015 , she will go back next year for the same Incisional hernia 12/30/2008 11/29/2020 Malignant neoplasm of other specified sites of s tomach 11/03/2004 11/03/2004 documented as of this encounter (statuses as of 06/29/2021) [facility]2020 History of Past illness Narrative* Problem Noted Date Resolved Date Acute renal failure superimp osed on stage 4 chronic kidney disease 01/02/2020 11/29/2020 Shortness of breath 11/23/2019 11/29/2020 Meralgia paresthetica of right side 02/20/2018 06/09/2018 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 Fever 12/21/2014 09/05/2016 Overview: Episode of fever 101.7 Currently on tacrolimus post transplant Denies any chills or any other symptoms except abdominal pain x 6 days Assessment: wide differentials including any GI related vs abscess ( intraabdominal) vs others Plan Levin culture ( urine blood) Monitor closely and low threshold to start IV Abx CT abdomen to look for any intraabdominal process Abdominal pain 12/21/2014 11/29/2020 Overview: Diffuse abdominal pain x 6 days Worsened with palpation on LLQ and epigastric No diarrhea no vomiting no alcohol drink no sick contact no change in stool no melena Ddx: viral GI vs any intraabdominal pathology or infection in a setting of immunosuppressed patient Plan CT abd wo Levin culture Rectal cancer 08/29/2011 05/12/2020 Last Assessment & Plan: Had a colonoscopy in 2014 and 2015 , she will go back next year for the same Incisional hernia 12/30/2008 11/29/2020 Malignant neoplasm of other specified sites of [place] 11/03/2004 11/03/2004 documented as of this encounter (statuses as of 07/03/2021) [facility]2020 History of Past illness Narrative* Problem Noted Date Resolved Date Acute renal failure superimp osed on stage 4 chronic kidney disease 01/02/2020 11/29/2020 Shortness of breath 11/23/2019 11/29/2020 Meralgia paresthetica of right side 02/20/2018 06/09/2018 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 Fever 12/21/2014 09/05/2016 Overview: Episode of fever 101.7 Currently on tacrolimus post transplant Denies any chills or any other symptoms except abdominal pain x 6 days Assessment: wide differentials including any GI related vs abscess ( intraabdominal) vs others Plan Levin culture ( urine blood) Monitor closely and low threshold to start IV Abx CT abdomen to look for any intraabdominal process Abdominal pain 12/21/2014 11/29/2020 Overview: Diffuse abdominal pain x 6 days Worsened with palpation on LLQ and epigastric No diarrhea no vomiting no alcohol drink no sick contact no change in stool no melena Ddx: viral GI vs any intraabdominal pathology or infection in a setting of immunosuppressed patient Plan CT abd wo Levin culture Rectal cancer 08/29/2011 05/12/2020 Last Assessment & Plan: Had a colonoscopy in 2014 and 2015 , she will go back next year for the same Incisional hernia 12/30/2008 11/29/2020 Malignant neoplasm of other specified sites of [place] 11/03/2004 11/03/2004 documented as of this encounter (statuses as of 07/09/2021) [facility] History of Past illness Narrative* Problem Noted Date Resolved Date Acute renal failure superimp osed on stage 4 chronic kidney disease 01/02/2020 11/29/2020 Shortness of breath 11/23/2019 11/29/2020 Meralgia paresthetica of right side 02/20/2018 06/09/2018 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 Fever 12/21/2014 09/05/2016 Overview: Episode of fever 101.7 Currently on tacrolimus post transplant Denies any chills or any other symptoms except abdominal pain x 6 days Assessment: wide differentials including any GI related vs abscess ( intraabdominal) vs others Plan Levin culture ( urine blood) Monitor closely and low threshold to start IV Abx CT abdomen to look for any intraabdominal process Abdominal pain 12/21/2014 11/29/2020 Overview: Diffuse abdominal pain x 6 days Worsened with palpation on LLQ and epigastric No diarrhea no vomiting no alcohol drink no sick contact no change in stool no melena Ddx: viral GI vs any intraabdominal pathology or infection in a setting of immunosuppressed patient Plan CT abd wo Levin culture Rectal cancer 08/29/2011 05/12/2020 Last Assessment & Plan: Had a colonoscopy in 2014 and 2015 , she will go back next year for the same Incisional hernia 12/30/2008 11/29/2020 Malignant neoplasm of other specified sites of s eveach 11/03/2004 11/03/2004 documented as of this encounter (statuses as of 07/11/2021) [facility] History of Past illness Narrative* Problem Noted Date Resolved Date Acute renal failure superimp osed on stage 4 chronic kidney disease 01/02/2020 11/29/2020 Shortness of breath 11/23/2019 11/29/2020 Meralgia paresthetica of right side 02/20/2018 06/09/2018 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 Fever 12/21/2014 09/05/2016 Overview: Episode of fever 101.7 Currently on tacrolimus post transplant Denies any chills or any other symptoms except abdominal pain x 6 days Assessment: wide differentials including any GI related vs abscess ( intraabdominal) vs others Plan Levin culture ( urine blood) Monitor closely and low threshold to start IV Abx CT abdomen to look for any intraabdominal process Abdominal pain 12/21/2014 11/29/2020 Overview: Diffuse abdominal pain x 6 days Worsened with palpation on LLQ and epigastric No diarrhea no vomiting no alcohol drink no sick contact no change in stool no melena Ddx: viral GI vs any intraabdominal pathology or infection in a setting of immunosuppressed patient Plan CT abd wo Levin culture Rectal cancer 08/29/2011 05/12/2020 Last Assessment & Plan: Had a colonoscopy in 2014 and 2015 , she will go back next year for the same Incisional hernia 12/30/2008 11/29/2020 Malignant neoplasm of other specified sites of s tomach 11/03/2004 11/03/2004 documented as of this encounter (statuses as of 07/12/2021) [facility] History of Past illness Narrative* Problem Noted Date Resolved Date Acute renal failure superimp osed on stage 4 chronic kidney disease 01/02/2020 11/29/2020 Shortness of breath 11/23/2019 11/29/2020 Meralgia paresthetica of right side 02/20/2018 06/09/2018 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 Fever 12/21/2014 09/05/2016 Overview: Episode of fever 101.7 Currently on tacrolimus post transplant Denies any chills or any other symptoms except abdominal pain x 6 days Assessment: wide differentials including any GI related vs abscess ( intraabdominal) vs others Plan Levin culture ( urine blood) Monitor closely and low threshold to start IV Abx CT abdomen to look for any intraabdominal process Abdominal pain 12/21/2014 11/29/2020 Overview: Diffuse abdominal pain x 6 days Worsened with palpation on LLQ and epigastric No diarrhea no vomiting no alcohol drink no sick contact no change in stool no melena Ddx: viral GI vs any intraabdominal pathology or infection in a setting of immunosuppressed patient Plan CT abd wo Levin culture Rectal cancer 08/29/2011 05/12/2020 Last Assessment & Plan: Had a colonoscopy in 2014 and 2015 , she will go back next year for the same Incisional hernia 12/30/2008 11/29/2020 Malignant neoplasm of other specified sites of s tomach 11/03/2004 11/03/2004 documented as of this encounter (statuses as of 07/13/2021) [facility] History of Past illness Narrative* Problem Noted Date Resolved Date Acute renal failure superimp osed on stage 4 chronic kidney disease 01/02/2020 11/29/2020 Shortness of breath 11/23/2019 11/29/2020 Meralgia paresthetica of right side 02/20/2018 06/09/2018 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 Fever 12/21/2014 09/05/2016 Overview: Episode of fever 101.7 Currently on tacrolimus post transplant Denies any chills or any other symptoms except abdominal pain x 6 days Assessment: wide differentials including any GI related vs abscess ( intraabdominal) vs others Plan Levin culture ( urine blood) Monitor closely and low threshold to start IV Abx CT abdomen to look for any intraabdominal process Abdominal pain 12/21/2014 11/29/2020 Overview: Diffuse abdominal pain x 6 days Worsened with palpation on LLQ and epigastric No diarrhea no vomiting no alcohol drink no sick contact no change in stool no melena Ddx: viral GI vs any intraabdominal pathology or infection in a setting of immunosuppressed patient Plan CT abd wo Levin culture Rectal cancer 08/29/2011 05/12/2020 Last Assessment & Plan: Had a colonoscopy in 2014 and 2015 , she will go back next year for the same Incisional hernia 12/30/2008 11/29/2020 Malignant neoplasm of other specified sites of s eveach 11/03/2004 11/03/2004 documented as of this encounter (statuses as of 07/13/2021) [facility] History of Past illness Narrative* Problem Noted Date Resolved Date Acute renal failure superimp osed on stage 4 chronic kidney disease 01/02/2020 11/29/2020 Shortness of breath 11/23/2019 11/29/2020 Meralgia paresthetica of right side 02/20/2018 06/09/2018 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 Fever 12/21/2014 09/05/2016 Overview: Episode of fever 101.7 Currently on tacrolimus post transplant Denies any chills or any other symptoms except abdominal pain x 6 days Assessment: wide differentials including any GI related vs abscess ( intraabdominal) vs others Plan Levin culture ( urine blood) Monitor closely and low threshold to start IV Abx CT abdomen to look for any intraabdominal process Abdominal pain 12/21/2014 11/29/2020 Overview: Diffuse abdominal pain x 6 days Worsened with palpation on LLQ and epigastric No diarrhea no vomiting no alcohol drink no sick contact no change in stool no melena Ddx: viral GI vs any intraabdominal pathology or infection in a setting of immunosuppressed patient Plan CT abd wo Levin culture Rectal cancer 08/29/2011 05/12/2020 Last Assessment & Plan: Had a colonoscopy in 2014 and 2015 , she will go back next year for the same Incisional hernia 12/30/2008 11/29/2020 Malignant neoplasm of other specified sites of s eveach 11/03/2004 11/03/2004 documented as of this encounter (statuses as of 07/14/2021) [facility] History of Past illness Narrative* Problem Noted Date Resolved Date Acute renal failure superimp osed on stage 4 chronic kidney disease 01/02/2020 11/29/2020 Shortness of breath 11/23/2019 11/29/2020 Meralgia paresthetica of right side 02/20/2018 06/09/2018 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 Fever 12/21/2014 09/05/2016 Overview: Episode of fever 101.7 Currently on tacrolimus post transplant Denies any chills or any other symptoms except abdominal pain x 6 days Assessment: wide differentials including any GI related vs abscess ( intraabdominal) vs others Plan Levin culture ( urine blood) Monitor closely and low threshold to start IV Abx CT abdomen to look for any intraabdominal process Abdominal pain 12/21/2014 11/29/2020 Overview: Diffuse abdominal pain x 6 days Worsened with palpation on LLQ and epigastric No diarrhea no vomiting no alcohol drink no sick contact no change in stool no melena Ddx: viral GI vs any intraabdominal pathology or infection in a setting of immunosuppressed patient Plan CT abd wo Levin culture Rectal cancer 08/29/2011 05/12/2020 Last Assessment & Plan: Had a colonoscopy in 2014 and 2015 , she will go back next year for the same Incisional hernia 12/30/2008 11/29/2020 Malignant neoplasm of other specified sites of [place] 11/03/2004 11/03/2004 documented as of this encounter (statuses as of 08/03/2021) [facility] History of Past illness Narrative* Problem Noted Date Resolved Date Acute renal failure superimp osed on stage 4 chronic kidney disease 01/02/2020 11/29/2020 Shortness of breath 11/23/2019 11/29/2020 Meralgia paresthetica of right side 02/20/2018 06/09/2018 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 Fever 12/21/2014 09/05/2016 Overview: Episode of fever 101.7 Currently on tacrolimus post transplant Denies any chills or any other symptoms except abdominal pain x 6 days Assessment: wide differentials including any GI related vs abscess ( intraabdominal) vs others Plan Levin culture ( urine blood) Monitor closely and low threshold to start IV Abx CT abdomen to look for any intraabdominal process Abdominal pain 12/21/2014 11/29/2020 Overview: Diffuse abdominal pain x 6 days Worsened with palpation on LLQ and epigastric No diarrhea no vomiting no alcohol drink no sick contact no change in stool no melena Ddx: viral GI vs any intraabdominal pathology or infection in a setting of immunosuppressed patient Plan CT abd wo Levin culture Rectal cancer 08/29/2011 05/12/2020 Last Assessment & Plan: Had a colonoscopy in 2014 and 2015 , she will go back next year for the same Incisional hernia 12/30/2008 11/29/2020 Malignant neoplasm of other specified sites of [place]or [place]es 11/03/2004 11/03/2004 documented as of this encounter (statuses as of 08/08/2021) [facility] History of Past illness Narrative* Problem Noted Date Resolved Date Acute renal failure superimp osed on stage 4 chronic kidney disease 01/02/2020 11/29/2020 Shortness of breath 11/23/2019 11/29/2020 Meralgia paresthetica of right side 02/20/2018 06/09/2018 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 Fever 12/21/2014 09/05/2016 Overview: Episode of fever 101.7 Currently on tacrolimus post transplant Denies any chills or any other symptoms except abdominal pain x 6 days Assessment: wide differentials including any GI related vs abscess ( intraabdominal) vs others Plan Levin culture ( urine blood) Monitor closely and low threshold to start IV Abx CT abdomen to look for any intraabdominal process Abdominal pain 12/21/2014 11/29/2020 Overview: Diffuse abdominal pain x 6 days Worsened with palpation on LLQ and epigastric No diarrhea no vomiting no alcohol drink no sick contact no change in stool no melena Ddx: viral GI vs any intraabdominal pathology or infection in a setting of immunosuppressed patient Plan CT abd wo Levin culture Rectal cancer 08/29/2011 05/12/2020 Last Assessment & Plan: Had a colonoscopy in 2014 and 2015 , she will go back next year for the same Incisional hernia 12/30/2008 11/29/2020 Malignant neoplasm of other specified sites of s [place] 11/03/2004 11/03/2004 documented as of this encounter (statuses as of 08/09/2021) [facility] History of Past illness Narrative* Problem Noted Date Resolved Date Acute renal failure superimp osed on stage 4 chronic kidney disease 01/02/2020 11/29/2020 Shortness of breath 11/23/2019 11/29/2020 Meralgia paresthetica of right side 02/20/2018 06/09/2018 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 Fever 12/21/2014 09/05/2016 Overview: Episode of fever 101.7 Currently on tacrolimus post transplant Denies any chills or any other symptoms except abdominal pain x 6 days Assessment: wide differentials including any GI related vs abscess ( intraabdominal) vs others Plan [facility] culture ( urine blood) Monitor closely and low threshold to start IV Abx CT abdomen to look for any intraabdominal process Abdominal pain 12/21/2014 11/29/2020 Overview: Diffuse abdominal pain x 6 days Worsened with palpation on LLQ and epigastric No diarrhea no vomiting no alcohol drink no sick contact no change in stool no melena Ddx: viral GI vs any intraabdominal pathology or infection in a setting of immunosuppressed patient Plan CT abd wo Levin culture Rectal cancer 08/29/2011 05/12/2020 Last Assessment & Plan: Had a colonoscopy in 2014 and 2015 , she will go back next year for the same Incisional hernia 12/30/2008 11/29/2020 Malignant neoplasm of other specified sites of s eveach 11/03/2004 11/03/2004 documented as of this encounter (statuses as of 08/10/2021) [facility]2020 History of Past illness Narrative* Problem Noted Date Resolved Date Acute renal failure superimp osed on stage 4 chronic kidney disease 01/02/2020 11/29/2020 Shortness of breath 11/23/2019 11/29/2020 Meralgia paresthetica of right side 02/20/2018 06/09/2018 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 Fever 12/21/2014 09/05/2016 Overview: Episode of fever 101.7 Currently on tacrolimus post transplant Denies any chills or any other symptoms except abdominal pain x 6 days Assessment: wide differentials including any GI related vs abscess ( intraabdominal) vs others Plan [facility] culture ( urine blood) Monitor closely and low threshold to start IV Abx CT abdomen to look for any intraabdominal process Abdominal pain 12/21/2014 11/29/2020 Overview: Diffuse abdominal pain x 6 days Worsened with palpation on LLQ and epigastric No diarrhea no vomiting no alcohol drink no sick contact no change in stool no melena Ddx: viral GI vs any intraabdominal pathology or infection in a setting of immunosuppressed patient Plan CT abd wo Levin culture Rectal cancer 08/29/2011 05/12/2020 Last Assessment & Plan: Had a colonoscopy in 2014 and 2015 , she will go back next year for the same Incisional hernia 12/30/2008 11/29/2020 Malignant neoplasm of other specified sites of s tomach 11/03/2004 11/03/2004 documented as of this encounter (statuses as of 08/14/2021) [facility] History of Past illness Narrative* Problem Noted Date Resolved Date Acute renal failure superimp osed on stage 4 chronic kidney disease 01/02/2020 11/29/2020 Shortness of breath 11/23/2019 11/29/2020 Meralgia paresthetica of right side 02/20/2018 06/09/2018 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 Fever 12/21/2014 09/05/2016 Overview: Episode of fever 101.7 Currently on tacrolimus post transplant Denies any chills or any other symptoms except abdominal pain x 6 days Assessment: wide differentials including any GI related vs abscess ( intraabdominal) vs others Plan [facility] culture ( urine blood) Monitor closely and low threshold to start IV Abx CT abdomen to look for any intraabdominal process Abdominal pain 12/21/2014 11/29/2020 Overview: Diffuse abdominal pain x 6 days Worsened with palpation on LLQ and epigastric No diarrhea no vomiting no alcohol drink no sick contact no change in stool no melena Ddx: viral GI vs any intraabdominal pathology or infection in a setting of immunosuppressed patient Plan CT abd wo Levin culture Rectal cancer 08/29/2011 05/12/2020 Last Assessment & Plan: Had a colonoscopy in 2014 and 2015 , she will go back next year for the same Incisional hernia 12/30/2008 11/29/2020 Malignant neoplasm of other specified sites of s [place]ge[place] 11/03/2004 11/03/2004 documented as of this encounter (statuses as of 08/14/2021) [facility] History of Past illness Narrative* Problem Noted Date Resolved Date Acute renal failure superimp osed on stage 4 chronic kidney disease 01/02/2020 11/29/2020 Shortness of breath 11/23/2019 11/29/2020 Meralgia paresthetica of right side 02/20/2018 06/09/2018 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 Fever 12/21/2014 09/05/2016 Overview: Episode of fever 101.7 Currently on tacrolimus post transplant Denies any chills or any other symptoms except abdominal pain x 6 days Assessment: wide differentials including any GI related vs abscess ( intraabdominal) vs others Plan [facility] culture ( urine blood) Monitor closely and low threshold to start IV Abx CT abdomen to look for any intraabdominal process Abdominal pain 12/21/2014 11/29/2020 Overview: Diffuse abdominal pain x 6 days Worsened with palpation on LLQ and epigastric No diarrhea no vomiting no alcohol drink no sick contact no change in stool no melena Ddx: viral GI vs any intraabdominal pathology or infection in a setting of immunosuppressed patient Plan CT abd wo Levin culture Rectal cancer 08/29/2011 05/12/2020 Last Assessment & Plan: Had a colonoscopy in 2014 and 2015 , she will go back next year for the same Incisional hernia 12/30/2008 11/29/2020 Malignant neoplasm of other specified sites of s eveach 11/03/2004 11/03/2004 documented as of this encounter (statuses as of 08/21/2021) [facility] History of Past illness Narrative* Problem Noted Date Resolved Date Acute renal failure superimp osed on stage 4 chronic kidney disease 01/02/2020 11/29/2020 Shortness of breath 11/23/2019 11/29/2020 Meralgia paresthetica of right side 02/20/2018 06/09/2018 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 Fever 12/21/2014 09/05/2016 Overview: Episode of fever 101.7 Currently on tacrolimus post transplant Denies any chills or any other symptoms except abdominal pain x 6 days Assessment: wide differentials including any GI related vs abscess ( intraabdominal) vs others Plan [facility] culture ( urine blood) Monitor closely and low threshold to start IV Abx CT abdomen to look for any intraabdominal process Abdominal pain 12/21/2014 11/29/2020 Overview: Diffuse abdominal pain x 6 days Worsened with palpation on LLQ and epigastric No diarrhea no vomiting no alcohol drink no sick contact no change in stool no melena Ddx: viral GI vs any intraabdominal pathology or infection in a setting of immunosuppressed patient Plan CT abd wo [facility] culture Rectal cancer 08/29/2011 05/12/2020 Last Assessment & Plan: Had a colonoscopy in 2014 and 2015 , she will go back next year for the same Incisional hernia 12/30/2008 11/29/2020 Malignant neoplasm of other specified sites of s sugey 11/03/2004 11/03/2004 documented as of this encounter (statuses as of 08/25/2021) [facility] History of Past illness Narrative* Problem Noted Date Resolved Date Acute renal failure superimp osed on stage 4 chronic kidney disease 01/02/2020 11/29/2020 Shortness of breath 11/23/2019 11/29/2020 Meralgia paresthetica of right side 02/20/2018 06/09/2018 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 Fever 12/21/2014 09/05/2016 Overview: Episode of fever 101.7 Currently on tacrolimus post transplant Denies any chills or any other symptoms except abdominal pain x 6 days Assessment: wide differentials including any GI related vs abscess ( intraabdominal) vs others Plan [facility] culture ( urine blood) Monitor closely and low threshold to start IV Abx CT abdomen to look for any intraabdominal process Abdominal pain 12/21/2014 11/29/2020 Overview: Diffuse abdominal pain x 6 days Worsened with palpation on LLQ and epigastric No diarrhea no vomiting no alcohol drink no sick contact no change in stool no melena Ddx: viral GI vs any intraabdominal pathology or infection in a setting of immunosuppressed patient Plan CT abd wo Levin culture Rectal cancer 08/29/2011 05/12/2020 Last Assessment & Plan: Had a colonoscopy in 2014 and 2015 , she will go back next year for the same Incisional hernia 12/30/2008 11/29/2020 Malignant neoplasm of other specified sites of [place] 11/03/2004 11/03/2004 documented as of this encounter (statuses as of 08/31/2021) [facility] History of Past illness Narrative* Problem Noted Date Resolved Date Acute renal failure superimp osed on stage 4 chronic kidney disease 01/02/2020 11/29/2020 Shortness of breath 11/23/2019 11/29/2020 Meralgia paresthetica of right side 02/20/2018 06/09/2018 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 Fever 12/21/2014 09/05/2016 Overview: Episode of fever 101.7 Currently on tacrolimus post transplant Denies any chills or any other symptoms except abdominal pain x 6 days Assessment: wide differentials including any GI related vs abscess ( intraabdominal) vs others Plan [facility] culture ( urine blood) Monitor closely and low threshold to start IV Abx CT abdomen to look for any intraabdominal process Abdominal pain 12/21/2014 11/29/2020 Overview: Diffuse abdominal pain x 6 days Worsened with palpation on LLQ and epigastric No diarrhea no vomiting no alcohol drink no sick contact no change in stool no melena Ddx: viral GI vs any intraabdominal pathology or infection in a setting of immunosuppressed patient Plan CT abd wo [facility] culture Rectal cancer 08/29/2011 05/12/2020 Last Assessment & Plan: Had a colonoscopy in 2014 and 2015 , she will go back next year for the same Incisional hernia 12/30/2008 11/29/2020 Malignant neoplasm of other specified sites of s sugey 11/03/2004 11/03/2004 documented as of this encounter (statuses as of 09/06/2021) [facility] History of Past illness Narrative* Problem Noted Date Resolved Date Acute renal failure superimp osed on stage 4 chronic kidney disease 01/02/2020 11/29/2020 Shortness of breath 11/23/2019 11/29/2020 Meralgia paresthetica of right side 02/20/2018 06/09/2018 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 Fever 12/21/2014 09/05/2016 Overview: Episode of fever 101.7 Currently on tacrolimus post transplant Denies any chills or any other symptoms except abdominal pain x 6 days Assessment: wide differentials including any GI related vs abscess ( intraabdominal) vs others Plan [facility] culture ( urine blood) Monitor closely and low threshold to start IV Abx CT abdomen to look for any intraabdominal process Abdominal pain 12/21/2014 11/29/2020 Overview: Diffuse abdominal pain x 6 days Worsened with palpation on LLQ and epigastric No diarrhea no vomiting no alcohol drink no sick contact no change in stool no melena Ddx: viral GI vs any intraabdominal pathology or infection in a setting of immunosuppressed patient Plan CT abd wo [facility] culture Rectal cancer 08/29/2011 05/12/2020 Last Assessment & Plan: Had a colonoscopy in 2014 and 2015 , she will go back next year for the same Incisional hernia 12/30/2008 11/29/2020 Malignant neoplasm of other specified sites of s eveach 11/03/2004 11/03/2004 documented as of this encounter (statuses as of 09/06/2021) [facility] History of Past illness Narrative* Problem Noted Date Resolved Date Acute renal failure superimp osed on stage 4 chronic kidney disease 01/02/2020 11/29/2020 Shortness of breath 11/23/2019 11/29/2020 Meralgia paresthetica of right side 02/20/2018 06/09/2018 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 Fever 12/21/2014 09/05/2016 Overview: Episode of fever 101.7 Currently on tacrolimus post transplant Denies any chills or any other symptoms except abdominal pain x 6 days Assessment: wide differentials including any GI related vs abscess ( intraabdominal) vs others Plan [facility] culture ( urine blood) Monitor closely and low threshold to start IV Abx CT abdomen to look for any intraabdominal process Abdominal pain 12/21/2014 11/29/2020 Overview: Diffuse abdominal pain x 6 days Worsened with palpation on LLQ and epigastric No diarrhea no vomiting no alcohol drink no sick contact no change in stool no melena Ddx: viral GI vs any intraabdominal pathology or infection in a setting of immunosuppressed patient Plan CT abd wo Levin culture Rectal cancer 08/29/2011 05/12/2020 Last Assessment & Plan: Had a colonoscopy in 2014 and 2015 , she will go back next year for the same Incisional hernia 12/30/2008 11/29/2020 Malignant neoplasm of other specified sites of s eveach 11/03/2004 11/03/2004 documented as of this encounter (statuses as of 09/07/2021) [facility] History of Past illness Narrative* Problem Noted Date Resolved Date Acute renal failure superimp osed on stage 4 chronic kidney disease 01/02/2020 11/29/2020 Shortness of breath 11/23/2019 11/29/2020 Meralgia paresthetica of right side 02/20/2018 06/09/2018 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 Fever 12/21/2014 09/05/2016 Overview: Episode of fever 101.7 Currently on tacrolimus post transplant Denies any chills or any other symptoms except abdominal pain x 6 days Assessment: wide differentials including any GI related vs abscess ( intraabdominal) vs others Plan [facility] culture ( urine blood) Monitor closely and low threshold to start IV Abx CT abdomen to look for any intraabdominal process Abdominal pain 12/21/2014 11/29/2020 Overview: Diffuse abdominal pain x 6 days Worsened with palpation on LLQ and epigastric No diarrhea no vomiting no alcohol drink no sick contact no change in stool no melena Ddx: viral GI vs any intraabdominal pathology or infection in a setting of immunosuppressed patient Plan CT abd wo [facility] culture Rectal cancer 08/29/2011 05/12/2020 Last Assessment & Plan: Had a colonoscopy in 2014 and 2015 , she will go back next year for the same Incisional hernia 12/30/2008 11/29/2020 Malignant neoplasm of other specified sites of s tomach 11/03/2004 11/03/2004 documented as of this encounter (statuses as of 09/07/2021) [facility] History of Past illness Narrative* Problem Noted Date Resolved Date Acute renal failure superimp osed on stage 4 chronic kidney disease 01/02/2020 11/29/2020 Shortness of breath 11/23/2019 11/29/2020 Meralgia paresthetica of right side 02/20/2018 06/09/2018 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 Fever 12/21/2014 09/05/2016 Overview: Episode of fever 101.7 Currently on tacrolimus post transplant Denies any chills or any other symptoms except abdominal pain x 6 days Assessment: wide differentials including any GI related vs abscess ( intraabdominal) vs others Plan [facility] culture ( urine blood) Monitor closely and low threshold to start IV Abx CT abdomen to look for any intraabdominal process Abdominal pain 12/21/2014 11/29/2020 Overview: Diffuse abdominal pain x 6 days Worsened with palpation on LLQ and epigastric No diarrhea no vomiting no alcohol drink no sick contact no change in stool no melena Ddx: viral GI vs any intraabdominal pathology or infection in a setting of immunosuppressed patient Plan CT abd wo [facility] culture Rectal cancer 08/29/2011 05/12/2020 Last Assessment & Plan: Had a colonoscopy in 2014 and 2015 , she will go back next year for the same Incisional hernia 12/30/2008 11/29/2020 Malignant neoplasm of other specified sites of s tomach 11/03/2004 11/03/2004 documented as of this encounter (statuses as of 09/07/2021) [facility] History of Past illness Narrative* Problem Noted Date Resolved Date Acute renal failure superimp osed on stage 4 chronic kidney disease 01/02/2020 11/29/2020 Shortness of breath 11/23/2019 11/29/2020 Meralgia paresthetica of right side 02/20/2018 06/09/2018 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 Fever 12/21/2014 09/05/2016 Overview: Episode of fever 101.7 Currently on tacrolimus post transplant Denies any chills or any other symptoms except abdominal pain x 6 days Assessment: wide differentials including any GI related vs abscess ( intraabdominal) vs others Plan [facility] culture ( urine blood) Monitor closely and low threshold to start IV Abx CT abdomen to look for any intraabdominal process Abdominal pain 12/21/2014 11/29/2020 Overview: Diffuse abdominal pain x 6 days Worsened with palpation on LLQ and epigastric No diarrhea no vomiting no alcohol drink no sick contact no change in stool no melena Ddx: viral GI vs any intraabdominal pathology or infection in a setting of immunosuppressed patient Plan CT abd wo [facility] culture Rectal cancer 08/29/2011 05/12/2020 Last Assessment & Plan: Had a colonoscopy in 2014 and 2015 , she will go back next year for the same Incisional hernia 12/30/2008 11/29/2020 Malignant neoplasm of other specified sites of s eveach 11/03/2004 11/03/2004 documented as of this encounter (statuses as of 09/11/2021) [facility] History of Past illness Narrative* Problem Noted Date Resolved Date Acute renal failure superimp osed on stage 4 chronic kidney disease 01/02/2020 11/29/2020 Shortness of breath 11/23/2019 11/29/2020 Meralgia paresthetica of right side 02/20/2018 06/09/2018 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 Fever 12/21/2014 09/05/2016 Overview: Episode of fever 101.7 Currently on tacrolimus post transplant Denies any chills or any other symptoms except abdominal pain x 6 days Assessment: wide differentials including any GI related vs abscess ( intraabdominal) vs others Plan [facility] culture ( urine blood) Monitor closely and low threshold to start IV Abx CT abdomen to look for any intraabdominal process Abdominal pain 12/21/2014 11/29/2020 Overview: Diffuse abdominal pain x 6 days Worsened with palpation on LLQ and epigastric No diarrhea no vomiting no alcohol drink no sick contact no change in stool no melena Ddx: viral GI vs any intraabdominal pathology or infection in a setting of immunosuppressed patient Plan CT abd wo [facility] culture Rectal cancer 08/29/2011 05/12/2020 Last Assessment & Plan: Had a colonoscopy in 2014 and 2015 , she will go back next year for the same Incisional hernia 12/30/2008 11/29/2020 Malignant neoplasm of other specified sites of s [place]gey 11/03/2004 11/03/2004 documented as of this encounter (statuses as of 09/12/2021) [facility] History of Past illness Narrative* Problem Noted Date Resolved Date Acute renal failure superimp osed on stage 4 chronic kidney disease 01/02/2020 11/29/2020 Shortness of breath 11/23/2019 11/29/2020 Meralgia paresthetica of right side 02/20/2018 06/09/2018 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 Fever 12/21/2014 09/05/2016 Overview: Episode of fever 101.7 Currently on tacrolimus post transplant Denies any chills or any other symptoms except abdominal pain x 6 days Assessment: wide differentials including any GI related vs abscess ( intraabdominal) vs others Plan [facility] culture ( urine blood) Monitor closely and low threshold to start IV Abx CT abdomen to look for any intraabdominal process Abdominal pain 12/21/2014 11/29/2020 Overview: Diffuse abdominal pain x 6 days Worsened with palpation on LLQ and epigastric No diarrhea no vomiting no alcohol drink no sick contact no change in stool no melena Ddx: viral GI vs any intraabdominal pathology or infection in a setting of immunosuppressed patient Plan CT abd wo [facility] culture Rectal cancer 08/29/2011 05/12/2020 Last Assessment & Plan: Had a colonoscopy in 2014 and 2015 , she will go back next year for the same Incisional hernia 12/30/2008 11/29/2020 Malignant neoplasm of other specified sites of [place] 11/03/2004 11/03/2004 documented as of this encounter (statuses as of 09/22/2021) [facility] History of Past illness Narrative* Problem Noted Date Resolved Date Acute renal failure superimp osed on stage 4 chronic kidney disease 01/02/2020 11/29/2020 Shortness of breath 11/23/2019 11/29/2020 Meralgia paresthetica of right side 02/20/2018 06/09/2018 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 Fever 12/21/2014 09/05/2016 Overview: Episode of fever 101.7 Currently on tacrolimus post transplant Denies any chills or any other symptoms except abdominal pain x 6 days Assessment: wide differentials including any GI related vs abscess ( intraabdominal) vs others Plan [facility] culture ( urine blood) Monitor closely and low threshold to start IV Abx CT abdomen to look for any intraabdominal process Abdominal pain 12/21/2014 11/29/2020 Overview: Diffuse abdominal pain x 6 days Worsened with palpation on LLQ and epigastric No diarrhea no vomiting no alcohol drink no sick contact no change in stool no melena Ddx: viral GI vs any intraabdominal pathology or infection in a setting of immunosuppressed patient Plan CT abd wo [facility] culture Rectal cancer 08/29/2011 05/12/2020 Last Assessment & Plan: Had a colonoscopy in 2014 and 2015 , she will go back next year for the same Incisional hernia 12/30/2008 11/29/2020 Malignant neoplasm of other specified sites of s eveach 11/03/2004 11/03/2004 documented as of this encounter (statuses as of 09/26/2021) [facility] History of Past illness Narrative* Problem Noted Date Resolved Date Acute renal failure superimp osed on stage 4 chronic kidney disease 01/02/2020 11/29/2020 Shortness of breath 11/23/2019 11/29/2020 Meralgia paresthetica of right side 02/20/2018 06/09/2018 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 Fever 12/21/2014 09/05/2016 Overview: Episode of fever 101.7 Currently on tacrolimus post transplant Denies any chills or any other symptoms except abdominal pain x 6 days Assessment: wide differentials including any GI related vs abscess ( intraabdominal) vs others Plan [facility] culture ( urine blood) Monitor closely and low threshold to start IV Abx CT abdomen to look for any intraabdominal process Abdominal pain 12/21/2014 11/29/2020 Overview: Diffuse abdominal pain x 6 days Worsened with palpation on LLQ and epigastric No diarrhea no vomiting no alcohol drink no sick contact no change in stool no melena Ddx: viral GI vs any intraabdominal pathology or infection in a setting of immunosuppressed patient Plan CT abd wo Levin culture Rectal cancer 08/29/2011 05/12/2020 Last Assessment & Plan: Had a colonoscopy in 2014 and 2015 , she will go back next year for the same Incisional hernia 12/30/2008 11/29/2020 Malignant neoplasm of other specified sites of s tomach 11/03/2004 11/03/2004 documented as of this encounter (statuses as of 09/27/2021) [facility]10-[facility]2020 History of Past illness Narrative* Problem Noted Date Resolved Date Acute renal failure superimp osed on stage 4 chronic kidney disease 01/02/2020 11/29/2020 Shortness of breath 11/23/2019 11/29/2020 Meralgia paresthetica of right side 02/20/2018 06/09/2018 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 Fever 12/21/2014 09/05/2016 Overview: Episode of fever 101.7 Currently on tacrolimus post transplant Denies any chills or any other symptoms except abdominal pain x 6 days Assessment: wide differentials including any GI related vs abscess ( intraabdominal) vs others Plan [facility] culture ( urine blood) Monitor closely and low threshold to start IV Abx CT abdomen to look for any intraabdominal process Abdominal pain 12/21/2014 11/29/2020 Overview: Diffuse abdominal pain x 6 days Worsened with palpation on LLQ and epigastric No diarrhea no vomiting no alcohol drink no sick contact no change in stool no melena Ddx: viral GI vs any intraabdominal pathology or infection in a setting of immunosuppressed patient Plan CT abd wo Levin culture Rectal cancer 08/29/2011 05/12/2020 Last Assessment & Plan: Had a colonoscopy in 2014 and 2015 , she will go back next year for the same Incisional hernia 12/30/2008 11/29/2020 Malignant neoplasm of other specified sites of s tomach 11/03/2004 11/03/2004 documented as of this encounter (statuses as of 09/28/2021) [facility] History of Past illness Narrative* Problem Noted Date Resolved Date Acute renal failure superimp osed on stage 4 chronic kidney disease 01/02/2020 11/29/2020 Shortness of breath 11/23/2019 11/29/2020 Meralgia paresthetica of right side 02/20/2018 06/09/2018 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 Fever 12/21/2014 09/05/2016 Overview: Episode of fever 101.7 Currently on tacrolimus post transplant Denies any chills or any other symptoms except abdominal pain x 6 days Assessment: wide differentials including any GI related vs abscess ( intraabdominal) vs others Plan [facility] culture ( urine blood) Monitor closely and low threshold to start IV Abx CT abdomen to look for any intraabdominal process Abdominal pain 12/21/2014 11/29/2020 Overview: Diffuse abdominal pain x 6 days Worsened with palpation on LLQ and epigastric No diarrhea no vomiting no alcohol drink no sick contact no change in stool no melena Ddx: viral GI vs any intraabdominal pathology or infection in a setting of immunosuppressed patient Plan CT abd wo Levin culture Rectal cancer 08/29/2011 05/12/2020 Last Assessment & Plan: Had a colonoscopy in 2014 and 2015 , she will go back next year for the same Incisional hernia 12/30/2008 11/29/2020 Malignant neoplasm of other specified sites of s [place] 11/03/2004 11/03/2004 documented as of this encounter (statuses as of 09/28/2021) [facility] History of Past illness Narrative* Problem Noted Date Resolved Date Acute renal failure superimp osed on stage 4 chronic kidney disease 01/02/2020 11/29/2020 Shortness of breath 11/23/2019 11/29/2020 Meralgia paresthetica of right side 02/20/2018 06/09/2018 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 Fever 12/21/2014 09/05/2016 Overview: Episode of fever 101.7 Currently on tacrolimus post transplant Denies any chills or any other symptoms except abdominal pain x 6 days Assessment: wide differentials including any GI related vs abscess ( intraabdominal) vs others Plan [facility] culture ( urine blood) Monitor closely and low threshold to start IV Abx CT abdomen to look for any intraabdominal process Abdominal pain 12/21/2014 11/29/2020 Overview: Diffuse abdominal pain x 6 days Worsened with palpation on LLQ and epigastric No diarrhea no vomiting no alcohol drink no sick contact no change in stool no melena Ddx: viral GI vs any intraabdominal pathology or infection in a setting of immunosuppressed patient Plan CT abd wo Levin culture Rectal cancer 08/29/2011 05/12/2020 Last Assessment & Plan: Had a colonoscopy in 2014 and 2015 , she will go back next year for the same Incisional hernia 12/30/2008 11/29/2020 Malignant neoplasm of other specified sites of s tomach 11/03/2004 11/03/2004 documented as of this encounter (statuses as of 10/09/2021) [facility] History of Past illness Narrative* Problem Noted Date Resolved Date Acute renal failure superimp osed on stage 4 chronic kidney disease 01/02/2020 11/29/2020 Shortness of breath 11/23/2019 11/29/2020 Meralgia paresthetica of right side 02/20/2018 06/09/2018 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 Fever 12/21/2014 09/05/2016 Overview: Episode of fever 101.7 Currently on tacrolimus post transplant Denies any chills or any other symptoms except abdominal pain x 6 days Assessment: wide differentials including any GI related vs abscess ( intraabdominal) vs others Plan [facility] culture ( urine blood) Monitor closely and low threshold to start IV Abx CT abdomen to look for any intraabdominal process Abdominal pain 12/21/2014 11/29/2020 Overview: Diffuse abdominal pain x 6 days Worsened with palpation on LLQ and epigastric No diarrhea no vomiting no alcohol drink no sick contact no change in stool no melena Ddx: viral GI vs any intraabdominal pathology or infection in a setting of immunosuppressed patient Plan CT abd wo [facility] culture Rectal cancer 08/29/2011 05/12/2020 Last Assessment & Plan: Had a colonoscopy in 2014 and 2015 , she will go back next year for the same Incisional hernia 12/30/2008 11/29/2020 Malignant neoplasm of other specified sites of [place] 11/03/2004 11/03/2004 documented as of this encounter (statuses as of 10/12/2021) [facility] History of Past illness Narrative* Problem Noted Date Resolved Date Acute renal failure superimp osed on stage 4 chronic kidney disease 01/02/2020 11/29/2020 Shortness of breath 11/23/2019 11/29/2020 Meralgia paresthetica of right side 02/20/2018 06/09/2018 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 Fever 12/21/2014 09/05/2016 Overview: Episode of fever 101.7 Currently on tacrolimus post transplant Denies any chills or any other symptoms except abdominal pain x 6 days Assessment: wide differentials including any GI related vs abscess ( intraabdominal) vs others Plan [facility] culture ( urine blood) Monitor closely and low threshold to start IV Abx CT abdomen to look for any intraabdominal process Abdominal pain 12/21/2014 11/29/2020 Overview: Diffuse abdominal pain x 6 days Worsened with palpation on LLQ and epigastric No diarrhea no vomiting no alcohol drink no sick contact no change in stool no melena Ddx: viral GI vs any intraabdominal pathology or infection in a setting of immunosuppressed patient Plan CT abd wo Levin culture Rectal cancer 08/29/2011 05/12/2020 Last Assessment & Plan: Had a colonoscopy in 2014 and 2015 , she will go back next year for the same Incisional hernia 12/30/2008 11/29/2020 Malignant neoplasm of other specified sites of [place] 11/03/2004 11/03/2004 documented as of this encounter (statuses as of 10/20/2021) [facility] History of Past illness Narrative* Problem Noted Date Resolved Date Acute renal failure superimp osed on stage 4 chronic kidney disease 01/02/2020 11/29/2020 Shortness of breath 11/23/2019 11/29/2020 Meralgia paresthetica of right side 02/20/2018 06/09/2018 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 Fever 12/21/2014 09/05/2016 Overview: Episode of fever 101.7 Currently on tacrolimus post transplant Denies any chills or any other symptoms except abdominal pain x 6 days Assessment: wide differentials including any GI related vs abscess ( intraabdominal) vs others Plan [facility] culture ( urine blood) Monitor closely and low threshold to start IV Abx CT abdomen to look for any intraabdominal process Abdominal pain 12/21/2014 11/29/2020 Overview: Diffuse abdominal pain x 6 days Worsened with palpation on LLQ and epigastric No diarrhea no vomiting no alcohol drink no sick contact no change in stool no melena Ddx: viral GI vs any intraabdominal pathology or infection in a setting of immunosuppressed patient Plan CT abd wo [facility] culture Rectal cancer 08/29/2011 05/12/2020 Last Assessment & Plan: Had a colonoscopy in 2014 and 2015 , she will go back next year for the same Incisional hernia 12/30/2008 11/29/2020 Malignant neoplasm of other specified sites of s [place] 11/03/2004 11/03/2004 documented as of this encounter (statuses as of 10/20/2021) [facility] History of Past illness Narrative* Problem Noted Date Resolved Date Acute renal failure superimp osed on stage 4 chronic kidney disease 01/02/2020 11/29/2020 Shortness of breath 11/23/2019 11/29/2020 Meralgia paresthetica of right side 02/20/2018 06/09/2018 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 Fever 12/21/2014 09/05/2016 Overview: Episode of fever 101.7 Currently on tacrolimus post transplant Denies any chills or any other symptoms except abdominal pain x 6 days Assessment: wide differentials including any GI related vs abscess ( intraabdominal) vs others Plan [facility] culture ( urine blood) Monitor closely and low threshold to start IV Abx CT abdomen to look for any intraabdominal process Abdominal pain 12/21/2014 11/29/2020 Overview: Diffuse abdominal pain x 6 days Worsened with palpation on LLQ and epigastric No diarrhea no vomiting no alcohol drink no sick contact no change in stool no melena Ddx: viral GI vs any intraabdominal pathology or infection in a setting of immunosuppressed patient Plan CT abd wo Levin culture Rectal cancer 08/29/2011 05/12/2020 Last Assessment & Plan: Had a colonoscopy in 2014 and 2015 , she will go back next year for the same Incisional hernia 12/30/2008 11/29/2020 Malignant neoplasm of other specified sites of s eveach 11/03/2004 11/03/2004 documented as of this encounter (statuses as of 10/21/2021) [facility] History of Past illness Narrative* Problem Noted Date Resolved Date Acute renal failure superimp osed on stage 4 chronic kidney disease 01/02/2020 11/29/2020 Shortness of breath 11/23/2019 11/29/2020 Meralgia paresthetica of right side 02/20/2018 06/09/2018 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 Fever 12/21/2014 09/05/2016 Overview: Episode of fever 101.7 Currently on tacrolimus post transplant Denies any chills or any other symptoms except abdominal pain x 6 days Assessment: wide differentials including any GI related vs abscess ( intraabdominal) vs others Plan [facility] culture ( urine blood) Monitor closely and low threshold to start IV Abx CT abdomen to look for any intraabdominal process Abdominal pain 12/21/2014 11/29/2020 Overview: Diffuse abdominal pain x 6 days Worsened with palpation on LLQ and epigastric No diarrhea no vomiting no alcohol drink no sick contact no change in stool no melena Ddx: viral GI vs any intraabdominal pathology or infection in a setting of immunosuppressed patient Plan CT abd wo Levin culture Rectal cancer 08/29/2011 05/12/2020 Last Assessment & Plan: Had a colonoscopy in 2014 and 2015 , she will go back next year for the same Incisional hernia 12/30/2008 11/29/2020 Malignant neoplasm of other specified sites of s tomach 11/03/2004 11/03/2004 documented as of this encounter (statuses as of 10/23/2021) [facility] History of Past illness Narrative* Problem Noted Date Resolved Date Acute renal failure superimp osed on stage 4 chronic kidney disease 01/02/2020 11/29/2020 Shortness of breath 11/23/2019 11/29/2020 Meralgia paresthetica of right side 02/20/2018 06/09/2018 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 Fever 12/21/2014 09/05/2016 Overview: Episode of fever 101.7 Currently on tacrolimus post transplant Denies any chills or any other symptoms except abdominal pain x 6 days Assessment: wide differentials including any GI related vs abscess ( intraabdominal) vs others Plan [facility] culture ( urine blood) Monitor closely and low threshold to start IV Abx CT abdomen to look for any intraabdominal process Abdominal pain 12/21/2014 11/29/2020 Overview: Diffuse abdominal pain x 6 days Worsened with palpation on LLQ and epigastric No diarrhea no vomiting no alcohol drink no sick contact no change in stool no melena Ddx: viral GI vs any intraabdominal pathology or infection in a setting of immunosuppressed patient Plan CT abd wo [facility] culture Rectal cancer 08/29/2011 05/12/2020 Last Assessment & Plan: Had a colonoscopy in 2014 and 2015 , she will go back next year for the same Incisional hernia 12/30/2008 11/29/2020 Malignant neoplasm of other specified sites of s eveach 11/03/2004 11/03/2004 documented as of this encounter (statuses as of 11/02/2021) [facility] History of Past illness Narrative* Problem Noted Date Resolved Date Acute renal failure superimp osed on stage 4 chronic kidney disease 01/02/2020 11/29/2020 Shortness of breath 11/23/2019 11/29/2020 Meralgia paresthetica of right side 02/20/2018 06/09/2018 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 Fever 12/21/2014 09/05/2016 Overview: Episode of fever 101.7 Currently on tacrolimus post transplant Denies any chills or any other symptoms except abdominal pain x 6 days Assessment: wide differentials including any GI related vs abscess ( intraabdominal) vs others Plan [facility] culture ( urine blood) Monitor closely and low threshold to start IV Abx CT abdomen to look for any intraabdominal process Abdominal pain 12/21/2014 11/29/2020 Overview: Diffuse abdominal pain x 6 days Worsened with palpation on LLQ and epigastric No diarrhea no vomiting no alcohol drink no sick contact no change in stool no melena Ddx: viral GI vs any intraabdominal pathology or infection in a setting of immunosuppressed patient Plan CT abd wo [facility] culture Rectal cancer 08/29/2011 05/12/2020 Last Assessment & Plan: Had a colonoscopy in 2014 and 2015 , she will go back next year for the same Incisional hernia 12/30/2008 11/29/2020 Malignant neoplasm of other specified sites of s eveach 11/03/2004 11/03/2004 documented as of this encounter (statuses as of 11/07/2021) [facility] History of Past illness Narrative* Problem Noted Date Resolved Date Acute renal failure superimp osed on stage 4 chronic kidney disease 01/02/2020 11/29/2020 Shortness of breath 11/23/2019 11/29/2020 Meralgia paresthetica of right side 02/20/2018 06/09/2018 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 Fever 12/21/2014 09/05/2016 Overview: Episode of fever 101.7 Currently on tacrolimus post transplant Denies any chills or any other symptoms except abdominal pain x 6 days Assessment: wide differentials including any GI related vs abscess ( intraabdominal) vs others Plan [facility] culture ( urine blood) Monitor closely and low threshold to start IV Abx CT abdomen to look for any intraabdominal process Abdominal pain 12/21/2014 11/29/2020 Overview: Diffuse abdominal pain x 6 days Worsened with palpation on LLQ and epigastric No diarrhea no vomiting no alcohol drink no sick contact no change in stool no melena Ddx: viral GI vs any intraabdominal pathology or infection in a setting of immunosuppressed patient Plan CT abd wo [facility] culture Rectal cancer 08/29/2011 05/12/2020 Last Assessment & Plan: Had a colonoscopy in 2014 and 2015 , she will go back next year for the same Incisional hernia 12/30/2008 11/29/2020 Malignant neoplasm of other specified sites of [place] 11/03/2004 11/03/2004 documented as of this encounter (statuses as of 11/15/2021) [facility] History of Past illness Narrative* Problem Noted Date Resolved Date Acute renal failure superimp osed on stage 4 chronic kidney disease 01/02/2020 11/29/2020 Shortness of breath 11/23/2019 11/29/2020 Meralgia paresthetica of right side 02/20/2018 06/09/2018 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 Fever 12/21/2014 09/05/2016 Overview: Episode of fever 101.7 Currently on tacrolimus post transplant Denies any chills or any other symptoms except abdominal pain x 6 days Assessment: wide differentials including any GI related vs abscess ( intraabdominal) vs others Plan [facility] culture ( urine blood) Monitor closely and low threshold to start IV Abx CT abdomen to look for any intraabdominal process Abdominal pain 12/21/2014 11/29/2020 Overview: Diffuse abdominal pain x 6 days Worsened with palpation on LLQ and epigastric No diarrhea no vomiting no alcohol drink no sick contact no change in stool no melena Ddx: viral GI vs any intraabdominal pathology or infection in a setting of immunosuppressed patient Plan CT abd wo [place] culture Rectal cancer 08/29/2011 05/12/2020 Last Assessment & Plan: Had a colonoscopy in 2014 and 2015 , she will go back next year for the same Incisional hernia 12/30/2008 11/29/2020 Malignant neoplasm of other specified sites of [place] 11/03/2004 11/03/2004 documented as of this encounter (statuses as of 11/27/2021) [facility] History of Past illness Narrative* Problem Noted Date Resolved Date Acute renal failure superimp osed on stage 4 chronic kidney disease 01/02/2020 11/29/2020 Shortness of breath 11/23/2019 11/29/2020 Meralgia paresthetica of right side 02/20/2018 06/09/2018 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 Fever 12/21/2014 09/05/2016 Overview: Episode of fever 101.7 Currently on tacrolimus post transplant Denies any chills or any other symptoms except abdominal pain x 6 days Assessment: wide differentials including any GI related vs abscess ( intraabdominal) vs others Plan [facility] culture ( urine blood) Monitor closely and low threshold to start IV Abx CT abdomen to look for any intraabdominal process Abdominal pain 12/21/2014 11/29/2020 Overview: Diffuse abdominal pain x 6 days Worsened with palpation on LLQ and epigastric No diarrhea no vomiting no alcohol drink no sick contact no change in stool no melena Ddx: viral GI vs any intraabdominal pathology or infection in a setting of immunosuppressed patient Plan CT abd wo [place] culture Rectal cancer 08/29/2011 05/12/2020 Last Assessment & Plan: Had a colonoscopy in 2014 and 2015 , she will go back next year for the same Incisional hernia 12/30/2008 11/29/2020 Malignant neoplasm of other specified sites of s [place] 11/03/2004 11/03/2004 documented as of this encounter (statuses as of 12/04/2021) [facility] History of Past illness Narrative* Problem Noted Date Resolved Date Acute renal failure superimp osed on stage 4 chronic kidney disease 01/02/2020 11/29/2020 Shortness of breath 11/23/2019 11/29/2020 Meralgia paresthetica of right side 02/20/2018 06/09/2018 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 Fever 12/21/2014 09/05/2016 Overview: Episode of fever 101.7 Currently on tacrolimus post transplant Denies any chills or any other symptoms except abdominal pain x 6 days Assessment: wide differentials including any GI related vs abscess ( intraabdominal) vs others Plan [facility] culture ( urine blood) Monitor closely and low threshold to start IV Abx CT abdomen to look for any intraabdominal process Abdominal pain 12/21/2014 11/29/2020 Overview: Diffuse abdominal pain x 6 days Worsened with palpation on LLQ and epigastric No diarrhea no vomiting no alcohol drink no sick contact no change in stool no melena Ddx: viral GI vs any intraabdominal pathology or infection in a setting of immunosuppressed patient Plan CT abd wo Levin culture Rectal cancer 08/29/2011 05/12/2020 Last Assessment & Plan: Had a colonoscopy in 2014 and 2015 , she will go back next year for the same Incisional hernia 12/30/2008 11/29/2020 Malignant neoplasm of other specified sites of s [place] 11/03/2004 11/03/2004 documented as of this encounter (statuses as of 12/11/2021) [facility] History of Past illness Narrative* Problem Noted Date Resolved Date Acute renal failure superimp osed on stage 4 chronic kidney disease 01/02/2020 11/29/2020 Shortness of breath 11/23/2019 11/29/2020 Meralgia paresthetica of right side 02/20/2018 06/09/2018 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 Fever 12/21/2014 09/05/2016 Overview: Episode of fever 101.7 Currently on tacrolimus post transplant Denies any chills or any other symptoms except abdominal pain x 6 days Assessment: wide differentials including any GI related vs abscess ( intraabdominal) vs others Plan [facility] culture ( urine blood) Monitor closely and low threshold to start IV Abx CT abdomen to look for any intraabdominal process Abdominal pain 12/21/2014 11/29/2020 Overview: Diffuse abdominal pain x 6 days Worsened with palpation on LLQ and epigastric No diarrhea no vomiting no alcohol drink no sick contact no change in stool no melena Ddx: viral GI vs any intraabdominal pathology or infection in a setting of immunosuppressed patient Plan CT abd wo [facility] culture Rectal cancer 08/29/2011 05/12/2020 Last Assessment & Plan: Had a colonoscopy in 2014 and 2015 , she will go back next year for the same Incisional hernia 12/30/2008 11/29/2020 Malignant neoplasm of other specified sites of s tomach 11/03/2004 11/03/2004 documented as of this encounter (statuses as of 12/12/2021) [facility]10-[facility]-2020 History of Past illness Narrative* Problem Noted Date Resolved Date Acute renal failure superimp osed on stage 4 chronic kidney disease 01/02/2020 11/29/2020 Shortness of breath 11/23/2019 11/29/2020 Meralgia paresthetica of right side 02/20/2018 06/09/2018 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 Fever 12/21/2014 09/05/2016 Overview: Episode of fever 101.7 Currently on tacrolimus post transplant Denies any chills or any other symptoms except abdominal pain x 6 days Assessment: wide differentials including any GI related vs abscess ( intraabdominal) vs others Plan [facility] culture ( urine blood) Monitor closely and low threshold to start IV Abx CT abdomen to look for any intraabdominal process Abdominal pain 12/21/2014 11/29/2020 Overview: Diffuse abdominal pain x 6 days Worsened with palpation on LLQ and epigastric No diarrhea no vomiting no alcohol drink no sick contact no change in stool no melena Ddx: viral GI vs any intraabdominal pathology or infection in a setting of immunosuppressed patient Plan CT abd wo Levin culture Rectal cancer 08/29/2011 05/12/2020 Last Assessment & Plan: Had a colonoscopy in 2014 and 2015 , she will go back next year for the same Incisional hernia 12/30/2008 11/29/2020 Malignant neoplasm of other specified sites of s [place] 11/03/2004 11/03/2004 documented as of this encounter (statuses as of 12/13/2021) [facility]2020 History of Past illness Narrative* Problem Noted Date Resolved Date Acute renal failure superimp osed on stage 4 chronic kidney disease 01/02/2020 11/29/2020 Shortness of breath 11/23/2019 11/29/2020 Meralgia paresthetica of right side 02/20/2018 06/09/2018 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 Fever 12/21/2014 09/05/2016 Overview: Episode of fever 101.7 Currently on tacrolimus post transplant Denies any chills or any other symptoms except abdominal pain x 6 days Assessment: wide differentials including any GI related vs abscess ( intraabdominal) vs others Plan [facility] culture ( urine blood) Monitor closely and low threshold to start IV Abx CT abdomen to look for any intraabdominal process Abdominal pain 12/21/2014 11/29/2020 Overview: Diffuse abdominal pain x 6 days Worsened with palpation on LLQ and epigastric No diarrhea no vomiting no alcohol drink no sick contact no change in stool no melena Ddx: viral GI vs any intraabdominal pathology or infection in a setting of immunosuppressed patient Plan CT abd wo Levin culture Rectal cancer 08/29/2011 05/12/2020 Last Assessment & Plan: Had a colonoscopy in 2014 and 2015 , she will go back next year for the same Incisional hernia 12/30/2008 11/29/2020 Malignant neoplasm of other specified sites of s eveach 11/03/2004 11/03/2004 documented as of this encounter (statuses as of 01/01/2022) [facility] History of Past illness Narrative* Problem Noted Date Resolved Date Acute renal failure superimp osed on stage 4 chronic kidney disease 01/02/2020 11/29/2020 Shortness of breath 11/23/2019 11/29/2020 Meralgia paresthetica of right side 02/20/2018 06/09/2018 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 Fever 12/21/2014 09/05/2016 Overview: Episode of fever 101.7 Currently on tacrolimus post transplant Denies any chills or any other symptoms except abdominal pain x 6 days Assessment: wide differentials including any GI related vs abscess ( intraabdominal) vs others Plan [facility] culture ( urine blood) Monitor closely and low threshold to start IV Abx CT abdomen to look for any intraabdominal process Abdominal pain 12/21/2014 11/29/2020 Overview: Diffuse abdominal pain x 6 days Worsened with palpation on LLQ and epigastric No diarrhea no vomiting no alcohol drink no sick contact no change in stool no melena Ddx: viral GI vs any intraabdominal pathology or infection in a setting of immunosuppressed patient Plan CT abd wo Levin culture Rectal cancer 08/29/2011 05/12/2020 Last Assessment & Plan: Had a colonoscopy in 2014 and 2015 , she will go back next year for the same Incisional hernia 12/30/2008 11/29/2020 Malignant neoplasm of other specified sites of s [place]ge[place] 11/03/2004 11/03/2004 documented as of this encounter (statuses as of 01/01/2022) [facility] History of Past illness Narrative* Problem Noted Date Resolved Date Acute renal failure superimp osed on stage 4 chronic kidney disease 01/02/2020 11/29/2020 Shortness of breath 11/23/2019 11/29/2020 Meralgia paresthetica of right side 02/20/2018 06/09/2018 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 Fever 12/21/2014 09/05/2016 Overview: Episode of fever 101.7 Currently on tacrolimus post transplant Denies any chills or any other symptoms except abdominal pain x 6 days Assessment: wide differentials including any GI related vs abscess ( intraabdominal) vs others Plan [facility] culture ( urine blood) Monitor closely and low threshold to start IV Abx CT abdomen to look for any intraabdominal process Abdominal pain 12/21/2014 11/29/2020 Overview: Diffuse abdominal pain x 6 days Worsened with palpation on LLQ and epigastric No diarrhea no vomiting no alcohol drink no sick contact no change in stool no melena Ddx: viral GI vs any intraabdominal pathology or infection in a setting of immunosuppressed patient Plan CT abd wo [facility] culture Rectal cancer 08/29/2011 05/12/2020 Last Assessment & Plan: Had a colonoscopy in 2014 and 2015 , she will go back next year for the same Incisional hernia 12/30/2008 11/29/2020 Malignant neoplasm of other specified sites of [place] 11/03/2004 11/03/2004 documented as of this encounter (statuses as of 01/01/2022) [facility] History of Past illness Narrative* Problem Noted Date Resolved Date Acute renal failure superimp osed on stage 4 chronic kidney disease 01/02/2020 11/29/2020 Shortness of breath 11/23/2019 11/29/2020 Meralgia paresthetica of right side 02/20/2018 06/09/2018 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 Fever 12/21/2014 09/05/2016 Overview: Episode of fever 101.7 Currently on tacrolimus post transplant Denies any chills or any other symptoms except abdominal pain x 6 days Assessment: wide differentials including any GI related vs abscess ( intraabdominal) vs others Plan [facility] culture ( urine blood) Monitor closely and low threshold to start IV Abx CT abdomen to look for any intraabdominal process Abdominal pain 12/21/2014 11/29/2020 Overview: Diffuse abdominal pain x 6 days Worsened with palpation on LLQ and epigastric No diarrhea no vomiting no alcohol drink no sick contact no change in stool no melena Ddx: viral GI vs any intraabdominal pathology or infection in a setting of immunosuppressed patient Plan CT abd wo Levin culture Rectal cancer 08/29/2011 05/12/2020 Last Assessment & Plan: Had a colonoscopy in 2014 and 2015 , she will go back next year for the same Incisional hernia 12/30/2008 11/29/2020 Malignant neoplasm of other specified sites of s sugey 11/03/2004 11/03/2004 documented as of this encounter (statuses as of 01/19/2022) [facility] History of Past illness Narrative* Problem Noted Date Resolved Date Acute renal failure superimp osed on stage 4 chronic kidney disease 01/02/2020 11/29/2020 Shortness of breath 11/23/2019 11/29/2020 Meralgia paresthetica of right side 02/20/2018 06/09/2018 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 Fever 12/21/2014 09/05/2016 Overview: Episode of fever 101.7 Currently on tacrolimus post transplant Denies any chills or any other symptoms except abdominal pain x 6 days Assessment: wide differentials including any GI related vs abscess ( intraabdominal) vs others Plan [facility] culture ( urine blood) Monitor closely and low threshold to start IV Abx CT abdomen to look for any intraabdominal process Abdominal pain 12/21/2014 11/29/2020 Overview: Diffuse abdominal pain x 6 days Worsened with palpation on LLQ and epigastric No diarrhea no vomiting no alcohol drink no sick contact no change in stool no melena Ddx: viral GI vs any intraabdominal pathology or infection in a setting of immunosuppressed patient Plan CT abd wo [facility] culture Rectal cancer 08/29/2011 05/12/2020 Last Assessment & Plan: Had a colonoscopy in 2014 and 2015 , she will go back next year for the same Incisional hernia 12/30/2008 11/29/2020 Malignant neoplasm of other specified sites of s eveach 11/03/2004 11/03/2004 documented as of this encounter (statuses as of 01/24/2022) [facility] History of Past illness Narrative* Problem Noted Date Resolved Date Acute renal failure superimp osed on stage 4 chronic kidney disease 01/02/2020 11/29/2020 Shortness of breath 11/23/2019 11/29/2020 Meralgia paresthetica of right side 02/20/2018 06/09/2018 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 Fever 12/21/2014 09/05/2016 Overview: Episode of fever 101.7 Currently on tacrolimus post transplant Denies any chills or any other symptoms except abdominal pain x 6 days Assessment: wide differentials including any GI related vs abscess ( intraabdominal) vs others Plan [facility] culture ( urine blood) Monitor closely and low threshold to start IV Abx CT abdomen to look for any intraabdominal process Abdominal pain 12/21/2014 11/29/2020 Overview: Diffuse abdominal pain x 6 days Worsened with palpation on LLQ and epigastric No diarrhea no vomiting no alcohol drink no sick contact no change in stool no melena Ddx: viral GI vs any intraabdominal pathology or infection in a setting of immunosuppressed patient Plan CT abd wo [facility] culture Rectal cancer 08/29/2011 05/12/2020 Last Assessment & Plan: Had a colonoscopy in 2014 and 2015 , she will go back next year for the same Incisional hernia 12/30/2008 11/29/2020 Malignant neoplasm of other specified sites of s tomach 11/03/2004 11/03/2004 documented as of this encounter (statuses as of 01/26/2022) [facility] History of Past illness Narrative* Problem Noted Date Resolved Date Acute renal failure superimp osed on stage 4 chronic kidney disease 01/02/2020 11/29/2020 Shortness of breath 11/23/2019 11/29/2020 Meralgia paresthetica of right side 02/20/2018 06/09/2018 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 Fever 12/21/2014 09/05/2016 Overview: Episode of fever 101.7 Currently on tacrolimus post transplant Denies any chills or any other symptoms except abdominal pain x 6 days Assessment: wide differentials including any GI related vs abscess ( intraabdominal) vs others Plan [facility] culture ( urine blood) Monitor closely and low threshold to start IV Abx CT abdomen to look for any intraabdominal process Abdominal pain 12/21/2014 11/29/2020 Overview: Diffuse abdominal pain x 6 days Worsened with palpation on LLQ and epigastric No diarrhea no vomiting no alcohol drink no sick contact no change in stool no melena Ddx: viral GI vs any intraabdominal pathology or infection in a setting of immunosuppressed patient Plan CT abd wo [facility] culture Rectal cancer 08/29/2011 05/12/2020 Last Assessment & Plan: Had a colonoscopy in 2014 and 2015 , she will go back next year for the same Incisional hernia 12/30/2008 11/29/2020 Malignant neoplasm of other specified sites of s tomach 11/03/2004 11/03/2004 documented as of this encounter (statuses as of 01/29/2022) [facility] History of Past illness Narrative* Problem Noted Date Resolved Date Acute renal failure superimp osed on stage 4 chronic kidney disease 01/02/2020 11/29/2020 Shortness of breath 11/23/2019 11/29/2020 Meralgia paresthetica of right side 02/20/2018 06/09/2018 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 Fever 12/21/2014 09/05/2016 Overview: Episode of fever 101.7 Currently on tacrolimus post transplant Denies any chills or any other symptoms except abdominal pain x 6 days Assessment: wide differentials including any GI related vs abscess ( intraabdominal) vs others Plan [facility] culture ( urine blood) Monitor closely and low threshold to start IV Abx CT abdomen to look for any intraabdominal process Abdominal pain 12/21/2014 11/29/2020 Overview: Diffuse abdominal pain x 6 days Worsened with palpation on LLQ and epigastric No diarrhea no vomiting no alcohol drink no sick contact no change in stool no melena Ddx: viral GI vs any intraabdominal pathology or infection in a setting of immunosuppressed patient Plan CT abd wo [facility] culture Rectal cancer 08/29/2011 05/12/2020 Last Assessment & Plan: Had a colonoscopy in 2014 and 2015 , she will go back next year for the same Incisional hernia 12/30/2008 11/29/2020 Malignant neoplasm of other specified sites of s eveach 11/03/2004 11/03/2004 documented as of this encounter (statuses as of 02/01/2022) [facility] History of Past illness Narrative* Problem Noted Date Resolved Date Acute renal failure superimp osed on stage 4 chronic kidney disease 01/02/2020 11/29/2020 Shortness of breath 11/23/2019 11/29/2020 Meralgia paresthetica of right side 02/20/2018 06/09/2018 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 Fever 12/21/2014 09/05/2016 Overview: Episode of fever 101.7 Currently on tacrolimus post transplant Denies any chills or any other symptoms except abdominal pain x 6 days Assessment: wide differentials including any GI related vs abscess ( intraabdominal) vs others Plan [facility] culture ( urine blood) Monitor closely and low threshold to start IV Abx CT abdomen to look for any intraabdominal process Abdominal pain 12/21/2014 11/29/2020 Overview: Diffuse abdominal pain x 6 days Worsened with palpation on LLQ and epigastric No diarrhea no vomiting no alcohol drink no sick contact no change in stool no melena Ddx: viral GI vs any intraabdominal pathology or infection in a setting of immunosuppressed patient Plan CT abd wo [facility] culture Rectal cancer 08/29/2011 05/12/2020 Last Assessment & Plan: Had a colonoscopy in 2014 and 2015 , she will go back next year for the same Incisional hernia 12/30/2008 11/29/2020 Malignant neoplasm of other specified sites of s eveach 11/03/2004 11/03/2004 documented as of this encounter (statuses as of 02/05/2022) [facility] History of Past illness Narrative* Problem Noted Date Resolved Date Acute renal failure superimp osed on stage 4 chronic kidney disease 01/02/2020 11/29/2020 Shortness of breath 11/23/2019 11/29/2020 Meralgia paresthetica of right side 02/20/2018 06/09/2018 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 Fever 12/21/2014 09/05/2016 Overview: Episode of fever 101.7 Currently on tacrolimus post transplant Denies any chills or any other symptoms except abdominal pain x 6 days Assessment: wide differentials including any GI related vs abscess ( intraabdominal) vs others Plan [facility] culture ( urine blood) Monitor closely and low threshold to start IV Abx CT abdomen to look for any intraabdominal process Abdominal pain 12/21/2014 11/29/2020 Overview: Diffuse abdominal pain x 6 days Worsened with palpation on LLQ and epigastric No diarrhea no vomiting no alcohol drink no sick contact no change in stool no melena Ddx: viral GI vs any intraabdominal pathology or infection in a setting of immunosuppressed patient Plan CT abd wo [facility] culture Rectal cancer 08/29/2011 05/12/2020 Last Assessment & Plan: Had a colonoscopy in 2014 and 2015 , she will go back next year for the same Incisional hernia 12/30/2008 11/29/2020 Malignant neoplasm of other specified sites of s sugey 11/03/2004 11/03/2004 documented as of this encounter (statuses as of 02/05/2022) [facility] History of Past illness Narrative* Problem Noted Date Resolved Date Acute renal failure superimp osed on stage 4 chronic kidney disease 01/02/2020 11/29/2020 Shortness of breath 11/23/2019 11/29/2020 Meralgia paresthetica of right side 02/20/2018 06/09/2018 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 Fever 12/21/2014 09/05/2016 Overview: Episode of fever 101.7 Currently on tacrolimus post transplant Denies any chills or any other symptoms except abdominal pain x 6 days Assessment: wide differentials including any GI related vs abscess ( intraabdominal) vs others Plan [facility] culture ( urine blood) Monitor closely and low threshold to start IV Abx CT abdomen to look for any intraabdominal process Abdominal pain 12/21/2014 11/29/2020 Overview: Diffuse abdominal pain x 6 days Worsened with palpation on LLQ and epigastric No diarrhea no vomiting no alcohol drink no sick contact no change in stool no melena Ddx: viral GI vs any intraabdominal pathology or infection in a setting of immunosuppressed patient Plan CT abd wo [facility] culture Rectal cancer 08/29/2011 05/12/2020 Last Assessment & Plan: Had a colonoscopy in 2014 and 2015 , she will go back next year for the same Incisional hernia 12/30/2008 11/29/2020 Malignant neoplasm of other specified sites of [place] 11/03/2004 11/03/2004 documented as of this encounter (statuses as of 02/09/2022) [facility] History of Past illness Narrative* Problem Noted Date Resolved Date Acute renal failure superimp osed on stage 4 chronic kidney disease 01/02/2020 11/29/2020 Shortness of breath 11/23/2019 11/29/2020 Meralgia paresthetica of right side 02/20/2018 06/09/2018 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 Fever 12/21/2014 09/05/2016 Overview: Episode of fever 101.7 Currently on tacrolimus post transplant Denies any chills or any other symptoms except abdominal pain x 6 days Assessment: wide differentials including any GI related vs abscess ( intraabdominal) vs others Plan [facility] culture ( urine blood) Monitor closely and low threshold to start IV Abx CT abdomen to look for any intraabdominal process Abdominal pain 12/21/2014 11/29/2020 Overview: Diffuse abdominal pain x 6 days Worsened with palpation on LLQ and epigastric No diarrhea no vomiting no alcohol drink no sick contact no change in stool no melena Ddx: viral GI vs any intraabdominal pathology or infection in a setting of immunosuppressed patient Plan CT abd wo [facility] culture Rectal cancer 08/29/2011 05/12/2020 Last Assessment & Plan: Had a colonoscopy in 2014 and 2015 , she will go back next year for the same Incisional hernia 12/30/2008 11/29/2020 Malignant neoplasm of other specified sites of s eveach 11/03/2004 11/03/2004 documented as of this encounter (statuses as of 02/23/2022) [facility] History of Past illness Narrative* Problem Noted Date Resolved Date Acute renal failure superimp osed on stage 4 chronic kidney disease 01/02/2020 11/29/2020 Shortness of breath 11/23/2019 11/29/2020 Meralgia paresthetica of right side 02/20/2018 06/09/2018 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 Fever 12/21/2014 09/05/2016 Overview: Episode of fever 101.7 Currently on tacrolimus post transplant Denies any chills or any other symptoms except abdominal pain x 6 days Assessment: wide differentials including any GI related vs abscess ( intraabdominal) vs others Plan [facility] culture ( urine blood) Monitor closely and low threshold to start IV Abx CT abdomen to look for any intraabdominal process Abdominal pain 12/21/2014 11/29/2020 Overview: Diffuse abdominal pain x 6 days Worsened with palpation on LLQ and epigastric No diarrhea no vomiting no alcohol drink no sick contact no change in stool no melena Ddx: viral GI vs any intraabdominal pathology or infection in a setting of immunosuppressed patient Plan CT abd wo [facility] culture Rectal cancer 08/29/2011 05/12/2020 Last Assessment & Plan: Had a colonoscopy in 2014 and 2015 , she will go back next year for the same Incisional hernia 12/30/2008 11/29/2020 Malignant neoplasm of other specified sites of s tom[place] 11/03/2004 11/03/2004 documented as of this encounter (statuses as of 03/19/2022) [facility] History of Past illness Narrative* Problem Noted Date Resolved Date Acute renal failure superimp osed on stage 4 chronic kidney disease 01/02/2020 11/29/2020 Shortness of breath 11/23/2019 11/29/2020 Meralgia paresthetica of right side 02/20/2018 06/09/2018 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 Fever 12/21/2014 09/05/2016 Overview: Episode of fever 101.7 Currently on tacrolimus post transplant Denies any chills or any other symptoms except abdominal pain x 6 days Assessment: wide differentials including any GI related vs abscess ( intraabdominal) vs others Plan [facility] culture ( urine blood) Monitor closely and low threshold to start IV Abx CT abdomen to look for any intraabdominal process Abdominal pain 12/21/2014 11/29/2020 Overview: Diffuse abdominal pain x 6 days Worsened with palpation on LLQ and epigastric No diarrhea no vomiting no alcohol drink no sick contact no change in stool no melena Ddx: viral GI vs any intraabdominal pathology or infection in a setting of immunosuppressed patient Plan CT abd wo [facility] Rectal cancer 08/29/2011 05/12/2020 Last Assessment & Plan: Had a colonoscopy in 2014 and 2015 , she will go back next year for the same Incisional hernia 12/30/2008 11/29/2020 Malignant neoplasm of other specified sites of s tomach 11/03/2004 11/03/2004 documented as of this encounter (statuses as of 04/19/2022) [facility]10-[facility]-2020 History of Past illness Narrative* Problem Noted Date Resolved Date Acute renal failure superimp osed on stage 4 chronic kidney disease 01/02/2020 11/29/2020 Shortness of breath 11/23/2019 11/29/2020 Meralgia paresthetica of right side 02/20/2018 06/09/2018 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 Fever 12/21/2014 09/05/2016 Overview: Episode of fever 101.7 Currently on tacrolimus post transplant Denies any chills or any other symptoms except abdominal pain x 6 days Assessment: wide differentials including any GI related vs abscess ( intraabdominal) vs others Plan [facility] ( urine blood) Monitor closely and low threshold to start IV Abx CT abdomen to look for any intraabdominal process Abdominal pain 12/21/2014 11/29/2020 Overview: Diffuse abdominal pain x 6 days Worsened with palpation on LLQ and epigastric No diarrhea no vomiting no alcohol drink no sick contact no change in stool no melena Ddx: viral GI vs any intraabdominal pathology or infection in a setting of immunosuppressed patient Plan CT abd wo [facility] culture Rectal cancer 08/29/2011 05/12/2020 Last Assessment & Plan: Had a colonoscopy in 2014 and 2015 , she will go back next year for the same Incisional hernia 12/30/2008 11/29/2020 Malignant neoplasm of other specified sites of s eveach 11/03/2004 11/03/2004 documented as of this encounter (statuses as of 04/20/2022) [facility] History of Past illness Narrative* Problem Noted Date Resolved Date Acute renal failure superimp osed on stage 4 chronic kidney disease 01/02/2020 11/29/2020 Shortness of breath 11/23/2019 11/29/2020 Meralgia paresthetica of right side 02/20/2018 06/09/2018 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 Fever 12/21/2014 09/05/2016 Overview: Episode of fever 101.7 Currently on tacrolimus post transplant Denies any chills or any other symptoms except abdominal pain x 6 days Assessment: wide differentials including any GI related vs abscess ( intraabdominal) vs others Plan [facility] culture ( urine blood) Monitor closely and low threshold to start IV Abx CT abdomen to look for any intraabdominal process Abdominal pain 12/21/2014 11/29/2020 Overview: Diffuse abdominal pain x 6 days Worsened with palpation on LLQ and epigastric No diarrhea no vomiting no alcohol drink no sick contact no change in stool no melena Ddx: viral GI vs any intraabdominal pathology or infection in a setting of immunosuppressed patient Plan CT abd wo [facility] culture Rectal cancer 08/29/2011 05/12/2020 Last Assessment & Plan: Had a colonoscopy in 2014 and 2015 , she will go back next year for the same Incisional hernia 12/30/2008 11/29/2020 Malignant neoplasm of other specified sites of s eveach 11/03/2004 11/03/2004 documented as of this encounter (statuses as of 04/24/2022) [facility] History of Past illness Narrative* Problem Noted Date Resolved Date Acute renal failure superimp osed on stage 4 chronic kidney disease 01/02/2020 11/29/2020 Shortness of breath 11/23/2019 11/29/2020 Meralgia paresthetica of right side 02/20/2018 06/09/2018 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 Fever 12/21/2014 09/05/2016 Overview: Episode of fever 101.7 Currently on tacrolimus post transplant Denies any chills or any other symptoms except abdominal pain x 6 days Assessment: wide differentials including any GI related vs abscess ( intraabdominal) vs others Plan [facility] culture ( urine blood) Monitor closely and low threshold to start IV Abx CT abdomen to look for any intraabdominal process Abdominal pain 12/21/2014 11/29/2020 Overview: Diffuse abdominal pain x 6 days Worsened with palpation on LLQ and epigastric No diarrhea no vomiting no alcohol drink no sick contact no change in stool no melena Ddx: viral GI vs any intraabdominal pathology or infection in a setting of immunosuppressed patient Plan CT abd wo [facility] culture Rectal cancer 08/29/2011 05/12/2020 Last Assessment & Plan: Had a colonoscopy in 2014 and 2015 , she will go back next year for the same Incisional hernia 12/30/2008 11/29/2020 Malignant neoplasm of other specified sites of [place] 11/03/2004 11/03/2004 documented as of this encounter (statuses as of 05/02/2022) [facility] History of Past illness Narrative* Problem Noted Date Resolved Date Acute renal failure superimp osed on stage 4 chronic kidney disease 01/02/2020 11/29/2020 Shortness of breath 11/23/2019 11/29/2020 Meralgia paresthetica of right side 02/20/2018 06/09/2018 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 Fever 12/21/2014 09/05/2016 Overview: Episode of fever 101.7 Currently on tacrolimus post transplant Denies any chills or any other symptoms except abdominal pain x 6 days Assessment: wide differentials including any GI related vs abscess ( intraabdominal) vs others Plan [facility] culture ( urine blood) Monitor closely and low threshold to start IV Abx CT abdomen to look for any intraabdominal process Abdominal pain 12/21/2014 11/29/2020 Overview: Diffuse abdominal pain x 6 days Worsened with palpation on LLQ and epigastric No diarrhea no vomiting no alcohol drink no sick contact no change in stool no melena Ddx: viral GI vs any intraabdominal pathology or infection in a setting of immunosuppressed patient Plan CT abd wo [facility] culture Rectal cancer 08/29/2011 05/12/2020 Last Assessment & Plan: Had a colonoscopy in 2014 and 2015 , she will go back next year for the same Incisional hernia 12/30/2008 11/29/2020 Malignant neoplasm of other specified sites of [place] 11/03/2004 11/03/2004 documented as of this encounter (statuses as of 05/03/2022) [facility] History of Past illness Narrative* Problem Noted Date Resolved Date Acute renal failure superimp osed on stage 4 chronic kidney disease 01/02/2020 11/29/2020 Shortness of breath 11/23/2019 11/29/2020 Meralgia paresthetica of right side 02/20/2018 06/09/2018 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 Fever 12/21/2014 09/05/2016 Overview: Episode of fever 101.7 Currently on tacrolimus post transplant Denies any chills or any other symptoms except abdominal pain x 6 days Assessment: wide differentials including any GI related vs abscess ( intraabdominal) vs others Plan [facility] culture ( urine blood) Monitor closely and low threshold to start IV Abx CT abdomen to look for any intraabdominal process Abdominal pain 12/21/2014 11/29/2020 Overview: Diffuse abdominal pain x 6 days Worsened with palpation on LLQ and epigastric No diarrhea no vomiting no alcohol drink no sick contact no change in stool no melena Ddx: viral GI vs any intraabdominal pathology or infection in a setting of immunosuppressed patient Plan CT abd wo [facility] Rectal cancer 08/29/2011 05/12/2020 Last Assessment & Plan: Had a colonoscopy in 2014 and 2015 , she will go back next year for the same Incisional hernia 12/30/2008 11/29/2020 Malignant neoplasm of other specified sites of s eveach 11/03/2004 11/03/2004 documented as of this encounter (statuses as of 05/03/2022) [facility] History of Past illness Narrative* Problem Noted Date Resolved Date Acute renal failure superimp osed on stage 4 chronic kidney disease 01/02/2020 11/29/2020 Shortness of breath 11/23/2019 11/29/2020 Meralgia paresthetica of right side 02/20/2018 06/09/2018 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 Fever 12/21/2014 09/05/2016 Overview: Episode of fever 101.7 Currently on tacrolimus post transplant Denies any chills or any other symptoms except abdominal pain x 6 days Assessment: wide differentials including any GI related vs abscess ( intraabdominal) vs others Plan [facility] culture ( urine blood) Monitor closely and low threshold to start IV Abx CT abdomen to look for any intraabdominal process Abdominal pain 12/21/2014 11/29/2020 Overview: Diffuse abdominal pain x 6 days Worsened with palpation on LLQ and epigastric No diarrhea no vomiting no alcohol drink no sick contact no change in stool no melena Ddx: viral GI vs any intraabdominal pathology or infection in a setting of immunosuppressed patient Plan CT abd wo [facility] Rectal cancer 08/29/2011 05/12/2020 Last Assessment & Plan: Had a colonoscopy in 2014 and 2015 , she will go back next year for the same Incisional hernia 12/30/2008 11/29/2020 Malignant neoplasm of other specified sites of s eveach 11/03/2004 11/03/2004 documented as of this encounter (statuses as of 05/07/2022) [facility] History of Past illness Narrative* Problem Noted Date Resolved Date Acute renal failure superimp osed on stage 4 chronic kidney disease 01/02/2020 11/29/2020 Shortness of breath 11/23/2019 11/29/2020 Meralgia paresthetica of right side 02/20/2018 06/09/2018 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 Fever 12/21/2014 09/05/2016 Overview: Episode of fever 101.7 Currently on tacrolimus post transplant Denies any chills or any other symptoms except abdominal pain x 6 days Assessment: wide differentials including any GI related vs abscess ( intraabdominal) vs others Plan [facility] culture ( urine blood) Monitor closely and low threshold to start IV Abx CT abdomen to look for any intraabdominal process Abdominal pain 12/21/2014 11/29/2020 Overview: Diffuse abdominal pain x 6 days Worsened with palpation on LLQ and epigastric No diarrhea no vomiting no alcohol drink no sick contact no change in stool no melena Ddx: viral GI vs any intraabdominal pathology or infection in a setting of immunosuppressed patient Plan CT abd wo [facility] Rectal cancer 08/29/2011 05/12/2020 Last Assessment & Plan: Had a colonoscopy in 2014 and 2015 , she will go back next year for the same Incisional hernia 12/30/2008 11/29/2020 Malignant neoplasm of other specified sites of s tomach 11/03/2004 11/03/2004 documented as of this encounter (statuses as of 05/16/2022) [facility] History of Past illness Narrative* Problem Noted Date Resolved Date Acute renal failure superimp osed on stage 4 chronic kidney disease 01/02/2020 11/29/2020 Shortness of breath 11/23/2019 11/29/2020 Meralgia paresthetica of right side 02/20/2018 06/09/2018 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 Fever 12/21/2014 09/05/2016 Overview: Episode of fever 101.7 Currently on tacrolimus post transplant Denies any chills or any other symptoms except abdominal pain x 6 days Assessment: wide differentials including any GI related vs abscess ( intraabdominal) vs others Plan [facility] culture ( urine blood) Monitor closely and low threshold to start IV Abx CT abdomen to look for any intraabdominal process Abdominal pain 12/21/2014 11/29/2020 Overview: Diffuse abdominal pain x 6 days Worsened with palpation on LLQ and epigastric No diarrhea no vomiting no alcohol drink no sick contact no change in stool no melena Ddx: viral GI vs any intraabdominal pathology or infection in a setting of immunosuppressed patient Plan CT abd wo [facility] culture Rectal cancer 08/29/2011 05/12/2020 Last Assessment & Plan: Had a colonoscopy in 2014 and 2015 , she will go back next year for the same Incisional hernia 12/30/2008 11/29/2020 Malignant neoplasm of other specified sites of s eveach 11/03/2004 11/03/2004 documented as of this encounter (statuses as of 05/21/2022) [facility] History of Past illness Narrative* Problem Noted Date Resolved Date Acute renal failure superimp osed on stage 4 chronic kidney disease 01/02/2020 11/29/2020 Shortness of breath 11/23/2019 11/29/2020 Meralgia paresthetica of right side 02/20/2018 06/09/2018 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 Fever 12/21/2014 09/05/2016 Overview: Episode of fever 101.7 Currently on tacrolimus post transplant Denies any chills or any other symptoms except abdominal pain x 6 days Assessment: wide differentials including any GI related vs abscess ( intraabdominal) vs others Plan [facility] culture ( urine blood) Monitor closely and low threshold to start IV Abx CT abdomen to look for any intraabdominal process Abdominal pain 12/21/2014 11/29/2020 Overview: Diffuse abdominal pain x 6 days Worsened with palpation on LLQ and epigastric No diarrhea no vomiting no alcohol drink no sick contact no change in stool no melena Ddx: viral GI vs any intraabdominal pathology or infection in a setting of immunosuppressed patient Plan CT abd wo [facility] culture Rectal cancer 08/29/2011 05/12/2020 Last Assessment & Plan: Had a colonoscopy in 2014 and 2015 , she will go back next year for the same Incisional hernia 12/30/2008 11/29/2020 Malignant neoplasm of other specified sites of s eveach 11/03/2004 11/03/2004 documented as of this encounter (statuses as of 05/23/2022) [facility] History of Past illness Narrative* Problem Noted Date Resolved Date Acute renal failure superimp osed on stage 4 chronic kidney disease 01/02/2020 11/29/2020 Shortness of breath 11/23/2019 11/29/2020 Meralgia paresthetica of right side 02/20/2018 06/09/2018 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 Fever 12/21/2014 09/05/2016 Overview: Episode of fever 101.7 Currently on tacrolimus post transplant Denies any chills or any other symptoms except abdominal pain x 6 days Assessment: wide differentials including any GI related vs abscess ( intraabdominal) vs others Plan [facility] culture ( urine blood) Monitor closely and low threshold to start IV Abx CT abdomen to look for any intraabdominal process Abdominal pain 12/21/2014 11/29/2020 Overview: Diffuse abdominal pain x 6 days Worsened with palpation on LLQ and epigastric No diarrhea no vomiting no alcohol drink no sick contact no change in stool no melena Ddx: viral GI vs any intraabdominal pathology or infection in a setting of immunosuppressed patient Plan CT abd wo [facility] culture Rectal cancer 08/29/2011 05/12/2020 Last Assessment & Plan: Had a colonoscopy in 2014 and 2015 , she will go back next year for the same Incisional hernia 12/30/2008 11/29/2020 Malignant neoplasm of other specified sites of [place] 11/03/2004 11/03/2004 documented as of this encounter (statuses as of 05/23/2022) [facility] History of Past illness Narrative* Problem Noted Date Resolved Date Acute renal failure superimp osed on stage 4 chronic kidney disease 01/02/2020 11/29/2020 Shortness of breath 11/23/2019 11/29/2020 Meralgia paresthetica of right side 02/20/2018 06/09/2018 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 Fever 12/21/2014 09/05/2016 Overview: Episode of fever 101.7 Currently on tacrolimus post transplant Denies any chills or any other symptoms except abdominal pain x 6 days Assessment: wide differentials including any GI related vs abscess ( intraabdominal) vs others Plan [facility] culture ( urine blood) Monitor closely and low threshold to start IV Abx CT abdomen to look for any intraabdominal process Abdominal pain 12/21/2014 11/29/2020 Overview: Diffuse abdominal pain x 6 days Worsened with palpation on LLQ and epigastric No diarrhea no vomiting no alcohol drink no sick contact no change in stool no melena Ddx: viral GI vs any intraabdominal pathology or infection in a setting of immunosuppressed patient Plan CT abd wo [facility] culture Rectal cancer 08/29/2011 05/12/2020 Last Assessment & Plan: Had a colonoscopy in 2014 and 2015 , she will go back next year for the same Incisional hernia 12/30/2008 11/29/2020 Malignant neoplasm of other specified sites of [place] 11/03/2004 11/03/2004 documented as of this encounter (statuses as of 05/23/2022) [facility] History of Past illness Narrative* Problem Noted Date Resolved Date Acute renal failure superimp osed on stage 4 chronic kidney disease 01/02/2020 11/29/2020 Shortness of breath 11/23/2019 11/29/2020 Meralgia paresthetica of right side 02/20/2018 06/09/2018 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 Fever 12/21/2014 09/05/2016 Overview: Episode of fever 101.7 Currently on tacrolimus post transplant Denies any chills or any other symptoms except abdominal pain x 6 days Assessment: wide differentials including any GI related vs abscess ( intraabdominal) vs others Plan [facility] culture ( urine blood) Monitor closely and low threshold to start IV Abx CT abdomen to look for any intraabdominal process Abdominal pain 12/21/2014 11/29/2020 Overview: Diffuse abdominal pain x 6 days Worsened with palpation on LLQ and epigastric No diarrhea no vomiting no alcohol drink no sick contact no change in stool no melena Ddx: viral GI vs any intraabdominal pathology or infection in a setting of immunosuppressed patient Plan CT abd wo [facility] culture Rectal cancer 08/29/2011 05/12/2020 Last Assessment & Plan: Had a colonoscopy in 2014 and 2015 , she will go back next year for the same Incisional hernia 12/30/2008 11/29/2020 Malignant neoplasm of other specified sites of s eveach 11/03/2004 11/03/2004 documented as of this encounter (statuses as of 05/23/2022) [facility] History of Past illness Narrative* Problem Noted Date Resolved Date Acute renal failure superimp osed on stage 4 chronic kidney disease 01/02/2020 11/29/2020 Shortness of breath 11/23/2019 11/29/2020 Meralgia paresthetica of right side 02/20/2018 06/09/2018 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 Fever 12/21/2014 09/05/2016 Overview: Episode of fever 101.7 Currently on tacrolimus post transplant Denies any chills or any other symptoms except abdominal pain x 6 days Assessment: wide differentials including any GI related vs abscess ( intraabdominal) vs others Plan [facility] culture ( urine blood) Monitor closely and low threshold to start IV Abx CT abdomen to look for any intraabdominal process Abdominal pain 12/21/2014 11/29/2020 Overview: Diffuse abdominal pain x 6 days Worsened with palpation on LLQ and epigastric No diarrhea no vomiting no alcohol drink no sick contact no change in stool no melena Ddx: viral GI vs any intraabdominal pathology or infection in a setting of immunosuppressed patient Plan CT abd wo [facility] culture Rectal cancer 08/29/2011 05/12/2020 Last Assessment & Plan: Had a colonoscopy in 2014 and 2015 , she will go back next year for the same Incisional hernia 12/30/2008 11/29/2020 Malignant neoplasm of other specified sites of s [place] 11/03/2004 11/03/2004 documented as of this encounter (statuses as of 05/29/2022) [facility] History of Past illness Narrative* Problem Noted Date Resolved Date Acute renal failure superimp osed on stage 4 chronic kidney disease 01/02/2020 11/29/2020 Shortness of breath 11/23/2019 11/29/2020 Meralgia paresthetica of right side 02/20/2018 06/09/2018 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 Fever 12/21/2014 09/05/2016 Overview: Episode of fever 101.7 Currently on tacrolimus post transplant Denies any chills or any other symptoms except abdominal pain x 6 days Assessment: wide differentials including any GI related vs abscess ( intraabdominal) vs others Plan [facility] culture ( urine blood) Monitor closely and low threshold to start IV Abx CT abdomen to look for any intraabdominal process Abdominal pain 12/21/2014 11/29/2020 Overview: Diffuse abdominal pain x 6 days Worsened with palpation on LLQ and epigastric No diarrhea no vomiting no alcohol drink no sick contact no change in stool no melena Ddx: viral GI vs any intraabdominal pathology or infection in a setting of immunosuppressed patient Plan CT abd wo [facility] culture Rectal cancer 08/29/2011 05/12/2020 Last Assessment & Plan: Had a colonoscopy in 2014 and 2015 , she will go back next year for the same Incisional hernia 12/30/2008 11/29/2020 Celiac disease 04/15/2008 05/30/2022 Malignant neoplasm of other specified sites of s [place] 11/03/2004 11/03/2004 documented as of this encounter (statuses as of 05/31/2022) [facility] History of Past illness Narrative* Problem Noted Date Resolved Date Acute renal failure superimp osed on stage 4 chronic kidney disease 01/02/2020 11/29/2020 Shortness of breath 11/23/2019 11/29/2020 Meralgia paresthetica of right side 02/20/2018 06/09/2018 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 Fever 12/21/2014 09/05/2016 Overview: Episode of fever 101.7 Currently on tacrolimus post transplant Denies any chills or any other symptoms except abdominal pain x 6 days Assessment: wide differentials including any GI related vs abscess ( intraabdominal) vs others Plan [facility] culture ( urine blood) Monitor closely and low threshold to start IV Abx CT abdomen to look for any intraabdominal process Abdominal pain 12/21/2014 11/29/2020 Overview: Diffuse abdominal pain x 6 days Worsened with palpation on LLQ and epigastric No diarrhea no vomiting no alcohol drink no sick contact no change in stool no melena Ddx: viral GI vs any intraabdominal pathology or infection in a setting of immunosuppressed patient Plan CT abd wo [facility] culture Rectal cancer 08/29/2011 05/12/2020 Last Assessment & Plan: Had a colonoscopy in 2014 and 2015 , she will go back next year for the same Incisional hernia 12/30/2008 11/29/2020 Celiac disease 04/15/2008 05/30/2022 Malignant neoplasm of other specified sites of s [place] 11/03/2004 11/03/2004 documented as of this encounter (statuses as of 06/14/2022) [facility]10-[facility]2020 History of Past illness Narrative* Problem Noted Date Resolved Date Acute renal failure superimp osed on stage 4 chronic kidney disease 01/02/2020 11/29/2020 Shortness of breath 11/23/2019 11/29/2020 Meralgia paresthetica of right side 02/20/2018 06/09/2018 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 Fever 12/21/2014 09/05/2016 Overview: Episode of fever 101.7 Currently on tacrolimus post transplant Denies any chills or any other symptoms except abdominal pain x 6 days Assessment: wide differentials including any GI related vs abscess ( intraabdominal) vs others Plan Levin culture ( urine blood) Monitor closely and low threshold to start IV Abx CT abdomen to look for any intraabdominal process Abdominal pain 12/21/2014 11/29/2020 Overview: Diffuse abdominal pain x 6 days Worsened with palpation on LLQ and epigastric No diarrhea no vomiting no alcohol drink no sick contact no change in stool no melena Ddx: viral GI vs any intraabdominal pathology or infection in a setting of immunosuppressed patient Plan CT abd wo Levin culture Rectal cancer 08/29/2011 05/12/2020 Last Assessment & Plan: Had a colonoscopy in 2014 and 2015 , she will go back next year for the same Incisional hernia 12/30/2008 11/29/2020 Celiac disease 04/15/2008 05/30/2022 Malignant neoplasm of other specified sites of s [place] 11/03/2004 11/03/2004 documented as of this encounter (statuses as of 06/15/2022) [facility] History of Past illness Narrative* Problem Noted Date Resolved Date Acute renal failure superimp osed on stage 4 chronic kidney disease 01/02/2020 11/29/2020 Shortness of breath 11/23/2019 11/29/2020 Meralgia paresthetica of right side 02/20/2018 06/09/2018 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 Fever 12/21/2014 09/05/2016 Overview: Episode of fever 101.7 Currently on tacrolimus post transplant Denies any chills or any other symptoms except abdominal pain x 6 days Assessment: wide differentials including any GI related vs abscess ( intraabdominal) vs others Plan Levin culture ( urine blood) Monitor closely and low threshold to start IV Abx CT abdomen to look for any intraabdominal process Abdominal pain 12/21/2014 11/29/2020 Overview: Diffuse abdominal pain x 6 days Worsened with palpation on LLQ and epigastric No diarrhea no vomiting no alcohol drink no sick contact no change in stool no melena Ddx: viral GI vs any intraabdominal pathology or infection in a setting of immunosuppressed patient Plan CT abd wo Levin culture Rectal cancer 08/29/2011 05/12/2020 Last Assessment & Plan: Had a colonoscopy in 2014 and 2015 , she will go back next year for the same Incisional hernia 12/30/2008 11/29/2020 Celiac disease 04/15/2008 05/30/2022 Malignant neoplasm of other specified sites of s [place] 11/03/2004 11/03/2004 documented as of this encounter (statuses as of 06/22/2022) [facility] History of Past illness Narrative* Problem Noted Date Resolved Date Acute renal failure superimp osed on stage 4 chronic kidney disease 01/02/2020 11/29/2020 Shortness of breath 11/23/2019 11/29/2020 Meralgia paresthetica of right side 02/20/2018 06/09/2018 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 Fever 12/21/2014 09/05/2016 Overview: Episode of fever 101.7 Currently on tacrolimus post transplant Denies any chills or any other symptoms except abdominal pain x 6 days Assessment: wide differentials including any GI related vs abscess ( intraabdominal) vs others Plan Levin culture ( urine blood) Monitor closely and low threshold to start IV Abx CT abdomen to look for any intraabdominal process Abdominal pain 12/21/2014 11/29/2020 Overview: Diffuse abdominal pain x 6 days Worsened with palpation on LLQ and epigastric No diarrhea no vomiting no alcohol drink no sick contact no change in stool no melena Ddx: viral GI vs any intraabdominal pathology or infection in a setting of immunosuppressed patient Plan CT abd wo Levin culture Rectal cancer 08/29/2011 05/12/2020 Last Assessment & Plan: Had a colonoscopy in 2014 and 2015 , she will go back next year for the same Incisional hernia 12/30/2008 11/29/2020 Celiac disease 04/15/2008 05/30/2022 Malignant neoplasm of other specified sites of s [place] 11/03/2004 11/03/2004 documented as of this encounter (statuses as of 06/27/2022) [facility] History of Past illness Narrative* Problem Noted Date Resolved Date Acute renal failure superimp osed on stage 4 chronic kidney disease 01/02/2020 11/29/2020 Shortness of breath 11/23/2019 11/29/2020 Meralgia paresthetica of right side 02/20/2018 06/09/2018 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 Fever 12/21/2014 09/05/2016 Overview: Episode of fever 101.7 Currently on tacrolimus post transplant Denies any chills or any other symptoms except abdominal pain x 6 days Assessment: wide differentials including any GI related vs abscess ( intraabdominal) vs others Plan Levin culture ( urine blood) Monitor closely and low threshold to start IV Abx CT abdomen to look for any intraabdominal process Abdominal pain 12/21/2014 11/29/2020 Overview: Diffuse abdominal pain x 6 days Worsened with palpation on LLQ and epigastric No diarrhea no vomiting no alcohol drink no sick contact no change in stool no melena Ddx: viral GI vs any intraabdominal pathology or infection in a setting of immunosuppressed patient Plan CT abd wo Levin culture Rectal cancer 08/29/2011 05/12/2020 Last Assessment & Plan: Had a colonoscopy in 2014 and 2015 , she will go back next year for the same Incisional hernia 12/30/2008 11/29/2020 Celiac disease 04/15/2008 05/30/2022 Malignant neoplasm of other specified sites of [place] 11/03/2004 11/03/2004 documented as of this encounter (statuses as of 07/05/2022) [facility] History of Past illness Narrative* Problem Noted Date Resolved Date Acute renal failure superimp osed on stage 4 chronic kidney disease 01/02/2020 11/29/2020 Shortness of breath 11/23/2019 11/29/2020 Meralgia paresthetica of right side 02/20/2018 06/09/2018 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 Fever 12/21/2014 09/05/2016 Overview: Episode of fever 101.7 Currently on tacrolimus post transplant Denies any chills or any other symptoms except abdominal pain x 6 days Assessment: wide differentials including any GI related vs abscess ( intraabdominal) vs others Plan Levin culture ( urine blood) Monitor closely and low threshold to start IV Abx CT abdomen to look for any intraabdominal process Abdominal pain 12/21/2014 11/29/2020 Overview: Diffuse abdominal pain x 6 days Worsened with palpation on LLQ and epigastric No diarrhea no vomiting no alcohol drink no sick contact no change in stool no melena Ddx: viral GI vs any intraabdominal pathology or infection in a setting of immunosuppressed patient Plan CT abd wo Levin culture Rectal cancer 08/29/2011 05/12/2020 Last Assessment & Plan: Had a colonoscopy in 2014 and 2015 , she will go back next year for the same Incisional hernia 12/30/2008 11/29/2020 Celiac disease 04/15/2008 05/30/2022 Malignant neoplasm of other specified sites of [place] 11/03/2004 11/03/2004 documented as of this encounter (statuses as of 07/11/2022) [facility] History of Past illness Narrative* Problem Noted Date Resolved Date Acute renal failure superimp osed on stage 4 chronic kidney disease 01/02/2020 11/29/2020 Shortness of breath 11/23/2019 11/29/2020 Meralgia paresthetica of right side 02/20/2018 06/09/2018 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 Fever 12/21/2014 09/05/2016 Overview: Episode of fever 101.7 Currently on tacrolimus post transplant Denies any chills or any other symptoms except abdominal pain x 6 days Assessment: wide differentials including any GI related vs abscess ( intraabdominal) vs others Plan Levin culture ( urine blood) Monitor closely and low threshold to start IV Abx CT abdomen to look for any intraabdominal process Abdominal pain 12/21/2014 11/29/2020 Overview: Diffuse abdominal pain x 6 days Worsened with palpation on LLQ and epigastric No diarrhea no vomiting no alcohol drink no sick contact no change in stool no melena Ddx: viral GI vs any intraabdominal pathology or infection in a setting of immunosuppressed patient Plan CT abd wo Levin culture Rectal cancer 08/29/2011 05/12/2020 Last Assessment & Plan: Had a colonoscopy in 2014 and 2015 , she will go back next year for the same Incisional hernia 12/30/2008 11/29/2020 Celiac disease 04/15/2008 05/30/2022 Malignant neoplasm of other specified sites of s [place] 11/03/2004 11/03/2004 documented as of this encounter (statuses as of 07/12/2022) [facility] History of Past illness Narrative* Problem Noted Date Resolved Date Acute renal failure superimp osed on stage 4 chronic kidney disease 01/02/2020 11/29/2020 Shortness of breath 11/23/2019 11/29/2020 Meralgia paresthetica of right side 02/20/2018 06/09/2018 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 Fever 12/21/2014 09/05/2016 Overview: Episode of fever 101.7 Currently on tacrolimus post transplant Denies any chills or any other symptoms except abdominal pain x 6 days Assessment: wide differentials including any GI related vs abscess ( intraabdominal) vs others Plan Levin culture ( urine blood) Monitor closely and low threshold to start IV Abx CT abdomen to look for any intraabdominal process Abdominal pain 12/21/2014 11/29/2020 Overview: Diffuse abdominal pain x 6 days Worsened with palpation on LLQ and epigastric No diarrhea no vomiting no alcohol drink no sick contact no change in stool no melena Ddx: viral GI vs any intraabdominal pathology or infection in a setting of immunosuppressed patient Plan CT abd wo Levin culture Rectal cancer 08/29/2011 05/12/2020 Last Assessment & Plan: Had a colonoscopy in 2014 and 2015 , she will go back next year for the same Incisional hernia 12/30/2008 11/29/2020 Celiac disease 04/15/2008 05/30/2022 Malignant neoplasm of other specified sites of s [place] 11/03/2004 11/03/2004 documented as of this encounter (statuses as of 07/13/2022) [facility] History of Past illness Narrative* Problem Noted Date Resolved Date Acute renal failure superimp osed on stage 4 chronic kidney disease 01/02/2020 11/29/2020 Shortness of breath 11/23/2019 11/29/2020 Meralgia paresthetica of right side 02/20/2018 06/09/2018 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 Fever 12/21/2014 09/05/2016 Overview: Episode of fever 101.7 Currently on tacrolimus post transplant Denies any chills or any other symptoms except abdominal pain x 6 days Assessment: wide differentials including any GI related vs abscess ( intraabdominal) vs others Plan Levin culture ( urine blood) Monitor closely and low threshold to start IV Abx CT abdomen to look for any intraabdominal process Abdominal pain 12/21/2014 11/29/2020 Overview: Diffuse abdominal pain x 6 days Worsened with palpation on LLQ and epigastric No diarrhea no vomiting no alcohol drink no sick contact no change in stool no melena Ddx: viral GI vs any intraabdominal pathology or infection in a setting of immunosuppressed patient Plan CT abd wo Levin culture Rectal cancer 08/29/2011 05/12/2020 Last Assessment & Plan: Had a colonoscopy in 2014 and 2015 , she will go back next year for the same Incisional hernia 12/30/2008 11/29/2020 Celiac disease 04/15/2008 05/30/2022 Malignant neoplasm of other specified sites of s [place] 11/03/2004 11/03/2004 documented as of this encounter (statuses as of 08/23/2022) [facility] History of Past illness Narrative* Problem Noted Date Resolved Date Acute renal failure superimp osed on stage 4 chronic kidney disease 01/02/2020 11/29/2020 Shortness of breath 11/23/2019 11/29/2020 Meralgia paresthetica of right side 02/20/2018 06/09/2018 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 Fever 12/21/2014 09/05/2016 Overview: Episode of fever 101.7 Currently on tacrolimus post transplant Denies any chills or any other symptoms except abdominal pain x 6 days Assessment: wide differentials including any GI related vs abscess ( intraabdominal) vs others Plan Levin culture ( urine blood) Monitor closely and low threshold to start IV Abx CT abdomen to look for any intraabdominal process Abdominal pain 12/21/2014 11/29/2020 Overview: Diffuse abdominal pain x 6 days Worsened with palpation on LLQ and epigastric No diarrhea no vomiting no alcohol drink no sick contact no change in stool no melena Ddx: viral GI vs any intraabdominal pathology or infection in a setting of immunosuppressed patient Plan CT abd wo Levin culture Rectal cancer 08/29/2011 05/12/2020 Last Assessment & Plan: Had a colonoscopy in 2014 and 2015 , she will go back next year for the same Incisional hernia 12/30/2008 11/29/2020 Celiac disease 04/15/2008 05/30/2022 Malignant neoplasm of other specified sites of s [place] 11/03/2004 11/03/2004 documented as of this encounter (statuses as of 08/29/2022) [facility] History of Past illness Narrative* Problem Noted Date Resolved Date Acute renal failure superimp osed on stage 4 chronic kidney disease 01/02/2020 11/29/2020 Shortness of breath 11/23/2019 11/29/2020 Meralgia paresthetica of right side 02/20/2018 06/09/2018 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 Fever 12/21/2014 09/05/2016 Overview: Episode of fever 101.7 Currently on tacrolimus post transplant Denies any chills or any other symptoms except abdominal pain x 6 days Assessment: wide differentials including any GI related vs abscess ( intraabdominal) vs others Plan Levin culture ( urine blood) Monitor closely and low threshold to start IV Abx CT abdomen to look for any intraabdominal process Abdominal pain 12/21/2014 11/29/2020 Overview: Diffuse abdominal pain x 6 days Worsened with palpation on LLQ and epigastric No diarrhea no vomiting no alcohol drink no sick contact no change in stool no melena Ddx: viral GI vs any intraabdominal pathology or infection in a setting of immunosuppressed patient Plan CT abd wo Levin culture Rectal cancer 08/29/2011 05/12/2020 Last Assessment & Plan: Had a colonoscopy in 2014 and 2015 , she will go back next year for the same Incisional hernia 12/30/2008 11/29/2020 Celiac disease 04/15/2008 05/30/2022 Malignant neoplasm of other specified sites of s [place] 11/03/2004 11/03/2004 documented as of this encounter (statuses as of 08/30/2022) [facility] History of Past illness Narrative* Problem Noted Date Resolved Date Acute renal failure superimp osed on stage 4 chronic kidney disease 01/02/2020 11/29/2020 Shortness of breath 11/23/2019 11/29/2020 Meralgia paresthetica of right side 02/20/2018 06/09/2018 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 Fever 12/21/2014 09/05/2016 Overview: Episode of fever 101.7 Currently on tacrolimus post transplant Denies any chills or any other symptoms except abdominal pain x 6 days Assessment: wide differentials including any GI related vs abscess ( intraabdominal) vs others Plan Levin culture ( urine blood) Monitor closely and low threshold to start IV Abx CT abdomen to look for any intraabdominal process Abdominal pain 12/21/2014 11/29/2020 Overview: Diffuse abdominal pain x 6 days Worsened with palpation on LLQ and epigastric No diarrhea no vomiting no alcohol drink no sick contact no change in stool no melena Ddx: viral GI vs any intraabdominal pathology or infection in a setting of immunosuppressed patient Plan CT abd wo Levin culture Rectal cancer 08/29/2011 05/12/2020 Last Assessment & Plan: Had a colonoscopy in 2014 and 2015 , she will go back next year for the same Incisional hernia 12/30/2008 11/29/2020 Celiac disease 04/15/2008 05/30/2022 Malignant neoplasm of other specified sites of s [place] 11/03/2004 11/03/2004 documented as of this encounter (statuses as of 08/30/2022) [facility] History of Past illness Narrative* Problem Noted Date Diagnosed Date Resolved Date Acute renal failure superimp osed on stage 4 chronic kidney disease 01/02/2020 11/29/2020 Shortness of breath 11/23/2019 11/30/19 21 Meralgia paresthetica of right side 02/20/2018 06/09/2018 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 Fever 12/21/2014 09/05/2016 Overview: Episode of fever 101.7 Currently on tacrolimus post transplant Denies any chills or any other symptoms except abdominal pain x 6 days Assessment: wide differentials including any GI related vs abscess ( intraabdominal) vs others Plan Levin culture ( urine blood) Monitor closely and low threshold to start IV Abx CT abdomen to look for any intraabdominal process Abdominal pain 12/21/2014 11/29/2020 Overview: Diffuse abdominal pain x 6 days Worsened with palpation on LLQ and epigastric No diarrhea no vomiting no alcohol drink no sick contact no change in stool no melena Ddx: viral GI vs any intraabdominal pathology or infection in a setting of immunosuppressed patient Plan CT abd wo Levin culture Rectal cancer 08/29/2011 05/12/2020 Last Assessment & Plan: Had a colonoscopy in 2014 and 2015 , she will go back next year for the same Incisional hernia 12/30/2008 11/29/2020 Celiac disease 04/15/2008 05/30/2022 Malignant neoplasm of other specified sites of stomach 11/03/2004 11/03/2004 Cancer 08/31/2022 documented as of this encounter (statuses as of 09/26/2022) [facility] History of Past illness Narrative* Problem Noted Date Diagnosed Date Resolved Date Acute renal failure superimp osed on stage 4 chronic kidney disease 01/02/2020 11/29/2020 Shortness of breath 11/23/2019 11/30/19 Meralgia paresthetica of right side 02/20/2018 06/09/2018 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 Fever 12/21/2014 09/05/2016 Overview: Episode of fever 101.7 Currently on tacrolimus post transplant Denies any chills or any other symptoms except abdominal pain x 6 days Assessment: wide differentials including any GI related vs abscess ( intraabdominal) vs others Plan Levin culture ( urine blood) Monitor closely and low threshold to start IV Abx CT abdomen to look for any intraabdominal process Abdominal pain 12/21/2014 11/29/2020 Overview: Diffuse abdominal pain x 6 days Worsened with palpation on LLQ and epigastric No diarrhea no vomiting no alcohol drink no sick contact no change in stool no melena Ddx: viral GI vs any intraabdominal pathology or infection in a setting of immunosuppressed patient Plan CT abd wo Levin culture Rectal cancer 08/29/2011 05/12/2020 Last Assessment & Plan: Had a colonoscopy in 2014 and 2015 , she will go back next year for the same Incisional hernia 12/30/2008 11/29/2020 Celiac disease 04/15/2008 05/30/2022 Malignant neoplasm of other specified sites of stomach 11/03/2004 11/03/2004 Cancer 08/31/2022 documented as of this encounter (statuses as of 09/27/2022) [facility] History of Past illness Narrative* Problem Noted Date Diagnosed Date Resolved Date Acute renal failure superimp osed on stage 4 chronic kidney disease 01/02/2020 11/29/2020 Shortness of breath 11/23/2019 11/30/19 21 Meralgia paresthetica of right side 02/20/2018 06/09/2018 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 Fever 12/21/2014 09/05/2016 Overview: Episode of fever 101.7 Currently on tacrolimus post transplant Denies any chills or any other symptoms except abdominal pain x 6 days Assessment: wide differentials including any GI related vs abscess ( intraabdominal) vs others Plan Levin culture ( urine blood) Monitor closely and low threshold to start IV Abx CT abdomen to look for any intraabdominal process Abdominal pain 12/21/2014 11/29/2020 Overview: Diffuse abdominal pain x 6 days Worsened with palpation on LLQ and epigastric No diarrhea no vomiting no alcohol drink no sick contact no change in stool no melena Ddx: viral GI vs any intraabdominal pathology or infection in a setting of immunosuppressed patient Plan CT abd wo Levin culture Rectal cancer 08/29/2011 05/12/2020 Last Assessment & Plan: Had a colonoscopy in 2014 and 2015 , she will go back next year for the same Incisional hernia 12/30/2008 11/29/2020 Celiac disease 04/15/2008 05/30/2022 Malignant neoplasm of other specified sites of stomach 11/03/2004 11/03/2004 Cancer 08/31/2022 documented as of this encounter (statuses as of 10/24/2022) [facility] History of Past illness Narrative* Problem Noted Date Diagnosed Date Resolved Date Acute renal failure superimp osed on stage 4 chronic kidney disease 01/02/2020 11/29/2020 Shortness of breath 11/23/2019 11/30/19 Meralgia paresthetica of right side 02/20/2018 06/09/2018 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 Fever 12/21/2014 09/05/2016 Overview: Episode of fever 101.7 Currently on tacrolimus post transplant Denies any chills or any other symptoms except abdominal pain x 6 days Assessment: wide differentials including any GI related vs abscess ( intraabdominal) vs others Plan Levin culture ( urine blood) Monitor closely and low threshold to start IV Abx CT abdomen to look for any intraabdominal process Abdominal pain 12/21/2014 11/29/2020 Overview: Diffuse abdominal pain x 6 days Worsened with palpation on LLQ and epigastric No diarrhea no vomiting no alcohol drink no sick contact no change in stool no melena Ddx: viral GI vs any intraabdominal pathology or infection in a setting of immunosuppressed patient Plan CT abd wo Levin culture Rectal cancer 08/29/2011 05/12/2020 Last Assessment & Plan: Had a colonoscopy in 2014 and 2015 , she will go back next year for the same Incisional hernia 12/30/2008 11/29/2020 Celiac disease 04/15/2008 05/30/2022 Malignant neoplasm of other specified sites of stomach 11/03/2004 11/03/2004 Cancer 08/31/2022 documented as of this encounter (statuses as of 10/26/2022) [facility]10-[facility]2020 History of Past illness Narrative* Problem Noted Date Diagnosed Date Resolved Date Acute renal failure superimp osed on stage 4 chronic kidney disease 01/02/2020 11/29/2020 Shortness of breath 11/23/2019 11/30/19 21 Meralgia paresthetica of right side 02/20/2018 06/09/2018 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 Fever 12/21/2014 09/05/2016 Overview: Episode of fever 101.7 Currently on tacrolimus post transplant Denies any chills or any other symptoms except abdominal pain x 6 days Assessment: wide differentials including any GI related vs abscess ( intraabdominal) vs others Plan Levin culture ( urine blood) Monitor closely and low threshold to start IV Abx CT abdomen to look for any intraabdominal process Abdominal pain 12/21/2014 11/29/2020 Overview: Diffuse abdominal pain x 6 days Worsened with palpation on LLQ and epigastric No diarrhea no vomiting no alcohol drink no sick contact no change in stool no melena Ddx: viral GI vs any intraabdominal pathology or infection in a setting of immunosuppressed patient Plan CT abd wo Levin culture Rectal cancer 08/29/2011 05/12/2020 Last Assessment & Plan: Had a colonoscopy in 2014 and 2015 , she will go back next year for the same Incisional hernia 12/30/2008 11/29/2020 Celiac disease 04/15/2008 05/30/2022 Malignant neoplasm of other specified sites of stomach 11/03/2004 11/03/2004 Cancer 08/31/2022 documented as of this encounter (statuses as of 10/27/2022) [facility] History of Past illness Narrative* Problem Noted Date Diagnosed Date Resolved Date Acute renal failure superimp osed on stage 4 chronic kidney disease 01/02/2020 11/29/2020 Shortness of breath 11/23/2019 11/30/19 21 Meralgia paresthetica of right side 02/20/2018 06/09/2018 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 Fever 12/21/2014 09/05/2016 Overview: Episode of fever 101.7 Currently on tacrolimus post transplant Denies any chills or any other symptoms except abdominal pain x 6 days Assessment: wide differentials including any GI related vs abscess ( intraabdominal) vs others Plan Levin culture ( urine blood) Monitor closely and low threshold to start IV Abx CT abdomen to look for any intraabdominal process Abdominal pain 12/21/2014 11/29/2020 Overview: Diffuse abdominal pain x 6 days Worsened with palpation on LLQ and epigastric No diarrhea no vomiting no alcohol drink no sick contact no change in stool no melena Ddx: viral GI vs any intraabdominal pathology or infection in a setting of immunosuppressed patient Plan CT abd wo Levin culture Rectal cancer 08/29/2011 05/12/2020 Last Assessment & Plan: Had a colonoscopy in 2014 and 2015 , she will go back next year for the same Incisional hernia 12/30/2008 11/29/2020 Celiac disease 04/15/2008 05/30/2022 Malignant neoplasm of other specified sites of stomach 11/03/2004 11/03/2004 Cancer 08/31/2022 documented as of this encounter (statuses as of 10/28/2022) [facility] History of Past illness Narrative* Problem Noted Date Diagnosed Date Resolved Date Acute renal failure superimp osed on stage 4 chronic kidney disease 01/02/2020 11/29/2020 Shortness of breath 11/23/2019 11/30/19 21 Meralgia paresthetica of right side 02/20/2018 06/09/2018 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 Fever 12/21/2014 09/05/2016 Overview: Episode of fever 101.7 Currently on tacrolimus post transplant Denies any chills or any other symptoms except abdominal pain x 6 days Assessment: wide differentials including any GI related vs abscess ( intraabdominal) vs others Plan [facility] culture ( urine blood) Monitor closely and low threshold to start IV Abx CT abdomen to look for any intraabdominal process Abdominal pain 12/21/2014 11/29/2020 Overview: Diffuse abdominal pain x 6 days Worsened with palpation on LLQ and epigastric No diarrhea no vomiting no alcohol drink no sick contact no change in stool no melena Ddx: viral GI vs any intraabdominal pathology or infection in a setting of immunosuppressed patient Plan CT abd wo Levin culture Rectal cancer 08/29/2011 05/12/2020 Last Assessment & Plan: Had a colonoscopy in 2014 and 2015 , she will go back next year for the same Incisional hernia 12/30/2008 11/29/2020 Celiac disease 04/15/2008 05/30/2022 Malignant neoplasm of other specified sites of stomach 11/03/2004 11/03/2004 Cancer 08/31/2022 documented as of this encounter (statuses as of 11/07/2022) [facility] History of Past illness Narrative* Problem Noted Date Diagnosed Date Resolved Date Acute renal failure superimp osed on stage 4 chronic kidney disease 01/02/2020 11/29/2020 Shortness of breath 11/23/2019 11/30/19 21 Meralgia paresthetica of right side 02/20/2018 06/09/2018 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 Fever 12/21/2014 09/05/2016 Overview: Episode of fever 101.7 Currently on tacrolimus post transplant Denies any chills or any other symptoms except abdominal pain x 6 days Assessment: wide differentials including any GI related vs abscess ( intraabdominal) vs others Plan [facility] culture ( urine blood) Monitor closely and low threshold to start IV Abx CT abdomen to look for any intraabdominal process Abdominal pain 12/21/2014 11/29/2020 Overview: Diffuse abdominal pain x 6 days Worsened with palpation on LLQ and epigastric No diarrhea no vomiting no alcohol drink no sick contact no change in stool no melena Ddx: viral GI vs any intraabdominal pathology or infection in a setting of immunosuppressed patient Plan CT abd wo Levin culture Rectal cancer 08/29/2011 05/12/2020 Last Assessment & Plan: Had a colonoscopy in 2014 and 2015 , she will go back next year for the same Incisional hernia 12/30/2008 11/29/2020 Celiac disease 04/15/2008 05/30/2022 Malignant neoplasm of other specified sites of stomach 11/03/2004 11/03/2004 Cancer 08/31/2022 documented as of this encounter (statuses as of 11/21/2022) [facility] History of Past illness Narrative* Problem Noted Date Diagnosed Date Resolved Date Acute renal failure superimp osed on stage 4 chronic kidney disease 01/02/2020 11/29/2020 Shortness of breath 11/23/2019 11/30/19 21 Meralgia paresthetica of right side 02/20/2018 06/09/2018 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 Fever 12/21/2014 09/05/2016 Overview: Episode of fever 101.7 Currently on tacrolimus post transplant Denies any chills or any other symptoms except abdominal pain x 6 days Assessment: wide differentials including any GI related vs abscess ( intraabdominal) vs others Plan [facility] culture ( urine blood) Monitor closely and low threshold to start IV Abx CT abdomen to look for any intraabdominal process Abdominal pain 12/21/2014 11/29/2020 Overview: Diffuse abdominal pain x 6 days Worsened with palpation on LLQ and epigastric No diarrhea no vomiting no alcohol drink no sick contact no change in stool no melena Ddx: viral GI vs any intraabdominal pathology or infection in a setting of immunosuppressed patient Plan CT abd wo Levin culture Rectal cancer 08/29/2011 05/12/2020 Last Assessment & Plan: Had a colonoscopy in 2014 and 2015 , she will go back next year for the same Incisional hernia 12/30/2008 11/29/2020 Celiac disease 04/15/2008 05/30/2022 Malignant neoplasm of other specified sites of stomach 11/03/2004 11/03/2004 Cancer 08/31/2022 documented as of this encounter (statuses as of 11/23/2022) [facility] History of Past illness Narrative* Problem Noted Date Diagnosed Date Resolved Date Acute renal failure superimp osed on stage 4 chronic kidney disease 01/02/2020 11/29/2020 Shortness of breath 11/23/2019 11/30/19 21 Meralgia paresthetica of right side 02/20/2018 06/09/2018 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 Fever 12/21/2014 09/05/2016 Overview: Episode of fever 101.7 Currently on tacrolimus post transplant Denies any chills or any other symptoms except abdominal pain x 6 days Assessment: wide differentials including any GI related vs abscess ( intraabdominal) vs others Plan [facility] culture ( urine blood) Monitor closely and low threshold to start IV Abx CT abdomen to look for any intraabdominal process Abdominal pain 12/21/2014 11/29/2020 Overview: Diffuse abdominal pain x 6 days Worsened with palpation on LLQ and epigastric No diarrhea no vomiting no alcohol drink no sick contact no change in stool no melena Ddx: viral GI vs any intraabdominal pathology or infection in a setting of immunosuppressed patient Plan CT abd wo Levin culture Rectal cancer 08/29/2011 05/12/2020 Last Assessment & Plan: Had a colonoscopy in 2014 and 2015 , she will go back next year for the same Incisional hernia 12/30/2008 11/29/2020 Celiac disease 04/15/2008 05/30/2022 Malignant neoplasm of other specified sites of stomach 11/03/2004 11/03/2004 Cancer 08/31/2022 documented as of this encounter (statuses as of 11/27/2022) [facility] History of Past illness Narrative* Problem Noted Date Diagnosed Date Resolved Date Acute renal failure superimp osed on stage 4 chronic kidney disease 01/02/2020 11/29/2020 Shortness of breath 11/23/2019 11/30/19 21 Meralgia paresthetica of right side 02/20/2018 06/09/2018 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 Fever 12/21/2014 09/05/2016 Overview: Episode of fever 101.7 Currently on tacrolimus post transplant Denies any chills or any other symptoms except abdominal pain x 6 days Assessment: wide differentials including any GI related vs abscess ( intraabdominal) vs others Plan Levin culture ( urine blood) Monitor closely and low threshold to start IV Abx CT abdomen to look for any intraabdominal process Abdominal pain 12/21/2014 11/29/2020 Overview: Diffuse abdominal pain x 6 days Worsened with palpation on LLQ and epigastric No diarrhea no vomiting no alcohol drink no sick contact no change in stool no melena Ddx: viral GI vs any intraabdominal pathology or infection in a setting of immunosuppressed patient Plan CT abd wo Levin culture Rectal cancer 08/29/2011 05/12/2020 Last Assessment & Plan: Had a colonoscopy in 2014 and 2015 , she will go back next year for the same Incisional hernia 12/30/2008 11/29/2020 Celiac disease 04/15/2008 05/30/2022 Malignant neoplasm of other specified sites of stomach 11/03/2004 11/03/2004 Cancer 08/31/2022 documented as of this encounter (statuses as of 12/19/2022) [facility] History of Past illness Narrative* Problem Noted Date Diagnosed Date Resolved Date Acute renal failure superimp osed on stage 4 chronic kidney disease 01/02/2020 11/29/2020 Shortness of breath 11/23/2019 11/30/19 Meralgia paresthetica of right side 02/20/2018 06/09/2018 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 Fever 12/21/2014 09/05/2016 Overview: Episode of fever 101.7 Currently on tacrolimus post transplant Denies any chills or any other symptoms except abdominal pain x 6 days Assessment: wide differentials including any GI related vs abscess ( intraabdominal) vs others Plan [facility] culture ( urine blood) Monitor closely and low threshold to start IV Abx CT abdomen to look for any intraabdominal process Abdominal pain 12/21/2014 11/29/2020 Overview: Diffuse abdominal pain x 6 days Worsened with palpation on LLQ and epigastric No diarrhea no vomiting no alcohol drink no sick contact no change in stool no melena Ddx: viral GI vs any intraabdominal pathology or infection in a setting of immunosuppressed patient Plan CT abd wo Levin culture Rectal cancer 08/29/2011 05/12/2020 Last Assessment & Plan: Had a colonoscopy in 2014 and 2015 , she will go back next year for the same Incisional hernia 12/30/2008 11/29/2020 Celiac disease 04/15/2008 05/30/2022 Malignant neoplasm of other specified sites of stomach 11/03/2004 11/03/2004 Cancer 08/31/2022 documented as of this encounter (statuses as of 12/20/2022) [facility] History of Past illness Narrative* Problem Noted Date Diagnosed Date Resolved Date Acute renal failure superimp osed on stage 4 chronic kidney disease 01/02/2020 11/29/2020 Shortness of breath 11/23/2019 11/30/19 21 Meralgia paresthetica of right side 02/20/2018 06/09/2018 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 Fever 12/21/2014 09/05/2016 Overview: Episode of fever 101.7 Currently on tacrolimus post transplant Denies any chills or any other symptoms except abdominal pain x 6 days Assessment: wide differentials including any GI related vs abscess ( intraabdominal) vs others Plan [facility] culture ( urine blood) Monitor closely and low threshold to start IV Abx CT abdomen to look for any intraabdominal process Abdominal pain 12/21/2014 11/29/2020 Overview: Diffuse abdominal pain x 6 days Worsened with palpation on LLQ and epigastric No diarrhea no vomiting no alcohol drink no sick contact no change in stool no melena Ddx: viral GI vs any intraabdominal pathology or infection in a setting of immunosuppressed patient Plan CT abd wo Levin culture Rectal cancer 08/29/2011 05/12/2020 Last Assessment & Plan: Had a colonoscopy in 2014 and 2015 , she will go back next year for the same Incisional hernia 12/30/2008 11/29/2020 Celiac disease 04/15/2008 05/30/2022 Malignant neoplasm of other specified sites of stomach 11/03/2004 11/03/2004 Cancer 08/31/2022 documented as of this encounter (statuses as of 12/25/2022) [facility] History of Past illness Narrative* Problem Noted Date Diagnosed Date Resolved Date Acute renal failure superimp osed on stage 4 chronic kidney disease 01/02/2020 11/29/2020 Shortness of breath 11/23/2019 11/30/19 Meralgia paresthetica of right side 02/20/2018 06/09/2018 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 Fever 12/21/2014 09/05/2016 Overview: Episode of fever 101.7 Currently on tacrolimus post transplant Denies any chills or any other symptoms except abdominal pain x 6 days Assessment: wide differentials including any GI related vs abscess ( intraabdominal) vs others Plan [facility] culture ( urine blood) Monitor closely and low threshold to start IV Abx CT abdomen to look for any intraabdominal process Abdominal pain 12/21/2014 11/29/2020 Overview: Diffuse abdominal pain x 6 days Worsened with palpation on LLQ and epigastric No diarrhea no vomiting no alcohol drink no sick contact no change in stool no melena Ddx: viral GI vs any intraabdominal pathology or infection in a setting of immunosuppressed patient Plan CT abd wo Levin culture Rectal cancer 08/29/2011 05/12/2020 Last Assessment & Plan: Had a colonoscopy in 2014 and 2015 , she will go back next year for the same Incisional hernia 12/30/2008 11/29/2020 Celiac disease 04/15/2008 05/30/2022 Malignant neoplasm of other specified sites of stomach 11/03/2004 11/03/2004 Cancer 08/31/2022 documented as of this encounter (statuses as of 12/27/2022) [facility] History of Past illness Narrative* Problem Noted Date Diagnosed Date Resolved Date Acute renal failure superimp osed on stage 4 chronic kidney disease 01/02/2020 11/29/2020 Shortness of breath 11/23/2019 11/30/19 21 Meralgia paresthetica of right side 02/20/2018 06/09/2018 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 Fever 12/21/2014 09/05/2016 Overview: Episode of fever 101.7 Currently on tacrolimus post transplant Denies any chills or any other symptoms except abdominal pain x 6 days Assessment: wide differentials including any GI related vs abscess ( intraabdominal) vs others Plan [facility] culture ( urine blood) Monitor closely and low threshold to start IV Abx CT abdomen to look for any intraabdominal process Abdominal pain 12/21/2014 11/29/2020 Overview: Diffuse abdominal pain x 6 days Worsened with palpation on LLQ and epigastric No diarrhea no vomiting no alcohol drink no sick contact no change in stool no melena Ddx: viral GI vs any intraabdominal pathology or infection in a setting of immunosuppressed patient Plan CT abd wo [facility] culture Rectal cancer 08/29/2011 05/12/2020 Last Assessment & Plan: Had a colonoscopy in 2014 and 2015 , she will go back next year for the same Incisional hernia 12/30/2008 11/29/2020 Celiac disease 04/15/2008 05/30/2022 Malignant neoplasm of other specified sites of stomach 11/03/2004 11/03/2004 Cancer 08/31/2022 documented as of this encounter (statuses as of 01/05/2023) [facility] History of Past illness Narrative* Problem Noted Date Diagnosed Date Resolved Date Acute renal failure superimp osed on stage 4 chronic kidney disease 01/02/2020 11/29/2020 Shortness of breath 11/23/2019 11/30/19 21 Meralgia paresthetica of right side 02/20/2018 06/09/2018 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 Fever 12/21/2014 09/05/2016 Overview: Episode of fever 101.7 Currently on tacrolimus post transplant Denies any chills or any other symptoms except abdominal pain x 6 days Assessment: wide differentials including any GI related vs abscess ( intraabdominal) vs others Plan [facility] culture ( urine blood) Monitor closely and low threshold to start IV Abx CT abdomen to look for any intraabdominal process Abdominal pain 12/21/2014 11/29/2020 Overview: Diffuse abdominal pain x 6 days Worsened with palpation on LLQ and epigastric No diarrhea no vomiting no alcohol drink no sick contact no change in stool no melena Ddx: viral GI vs any intraabdominal pathology or infection in a setting of immunosuppressed patient Plan CT abd wo [facility] culture Rectal cancer 08/29/2011 05/12/2020 Last Assessment & Plan: Had a colonoscopy in 2014 and 2015 , she will go back next year for the same Incisional hernia 12/30/2008 11/29/2020 Celiac disease 04/15/2008 05/30/2022 Malignant neoplasm of other specified sites of stomach 11/03/2004 11/03/2004 Cancer 08/31/2022 documented as of this encounter (statuses as of 01/06/2023) [facility] History of Past illness Narrative* Problem Noted Date Diagnosed Date Resolved Date Acute renal failure superimp osed on stage 4 chronic kidney disease 01/02/2020 11/29/2020 Shortness of breath 11/23/2019 11/30/19 21 Meralgia paresthetica of right side 02/20/2018 06/09/2018 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 Fever 12/21/2014 09/05/2016 Overview: Episode of fever 101.7 Currently on tacrolimus post transplant Denies any chills or any other symptoms except abdominal pain x 6 days Assessment: wide differentials including any GI related vs abscess ( intraabdominal) vs others Plan [facility] culture ( urine blood) Monitor closely and low threshold to start IV Abx CT abdomen to look for any intraabdominal process Abdominal pain 12/21/2014 11/29/2020 Overview: Diffuse abdominal pain x 6 days Worsened with palpation on LLQ and epigastric No diarrhea no vomiting no alcohol drink no sick contact no change in stool no melena Ddx: viral GI vs any intraabdominal pathology or infection in a setting of immunosuppressed patient Plan CT abd wo [facility] culture Rectal cancer 08/29/2011 05/12/2020 Last Assessment & Plan: Had a colonoscopy in 2014 and 2015 , she will go back next year for the same Incisional hernia 12/30/2008 11/29/2020 Celiac disease 04/15/2008 05/30/2022 Malignant neoplasm of other specified sites of stomach 11/03/2004 11/03/2004 Cancer 08/31/2022 documented as of this encounter (statuses as of 01/06/2023) [facility] History of Past illness Narrative* Problem Noted Date Diagnosed Date Resolved Date Acute renal failure superimp osed on stage 4 chronic kidney disease 01/02/2020 11/29/2020 Shortness of breath 11/23/2019 11/30/19 21 Meralgia paresthetica of right side 02/20/2018 06/09/2018 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 Fever 12/21/2014 09/05/2016 Overview: Episode of fever 101.7 Currently on tacrolimus post transplant Denies any chills or any other symptoms except abdominal pain x 6 days Assessment: wide differentials including any GI related vs abscess ( intraabdominal) vs others Plan [facility] culture ( urine blood) Monitor closely and low threshold to start IV Abx CT abdomen to look for any intraabdominal process Abdominal pain 12/21/2014 11/29/2020 Overview: Diffuse abdominal pain x 6 days Worsened with palpation on LLQ and epigastric No diarrhea no vomiting no alcohol drink no sick contact no change in stool no melena Ddx: viral GI vs any intraabdominal pathology or infection in a setting of immunosuppressed patient Plan CT abd wo Levin culture Rectal cancer 08/29/2011 05/12/2020 Last Assessment & Plan: Had a colonoscopy in 2014 and 2015 , she will go back next year for the same Incisional hernia 12/30/2008 11/29/2020 Celiac disease 04/15/2008 05/30/2022 Malignant neoplasm of other specified sites of stomach 11/03/2004 11/03/2004 Cancer 08/31/2022 documented as of this encounter (statuses as of 01/09/2023) [facility] History of Past illness Narrative* Problem Noted Date Diagnosed Date Resolved Date Acute renal failure superimp osed on stage 4 chronic kidney disease 01/02/2020 11/29/2020 Shortness of breath 11/23/2019 11/30/19 21 Meralgia paresthetica of right side 02/20/2018 06/09/2018 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 Fever 12/21/2014 09/05/2016 Overview: Episode of fever 101.7 Currently on tacrolimus post transplant Denies any chills or any other symptoms except abdominal pain x 6 days Assessment: wide differentials including any GI related vs abscess ( intraabdominal) vs others Plan Levin culture ( urine blood) Monitor closely and low threshold to start IV Abx CT abdomen to look for any intraabdominal process Abdominal pain 12/21/2014 11/29/2020 Overview: Diffuse abdominal pain x 6 days Worsened with palpation on LLQ and epigastric No diarrhea no vomiting no alcohol drink no sick contact no change in stool no melena Ddx: viral GI vs any intraabdominal pathology or infection in a setting of immunosuppressed patient Plan CT abd wo Levin culture Rectal cancer 08/29/2011 05/12/2020 Last Assessment & Plan: Had a colonoscopy in 2014 and 2015 , she will go back next year for the same Incisional hernia 12/30/2008 11/29/2020 Celiac disease 04/15/2008 05/30/2022 Malignant neoplasm of other specified sites of stomach 11/03/2004 11/03/2004 Cancer 08/31/2022 documented as of this encounter (statuses as of 01/10/2023) [facility] History of Past illness Narrative* Problem Noted Date Diagnosed Date Resolved Date Acute renal failure superimp osed on stage 4 chronic kidney disease 01/02/2020 11/29/2020 Shortness of breath 11/23/2019 11/30/19 21 Meralgia paresthetica of right side 02/20/2018 06/09/2018 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 Fever 12/21/2014 09/05/2016 Overview: Episode of fever 101.7 Currently on tacrolimus post transplant Denies any chills or any other symptoms except abdominal pain x 6 days Assessment: wide differentials including any GI related vs abscess ( intraabdominal) vs others Plan Levin culture ( urine blood) Monitor closely and low threshold to start IV Abx CT abdomen to look for any intraabdominal process Abdominal pain 12/21/2014 11/29/2020 Overview: Diffuse abdominal pain x 6 days Worsened with palpation on LLQ and epigastric No diarrhea no vomiting no alcohol drink no sick contact no change in stool no melena Ddx: viral GI vs any intraabdominal pathology or infection in a setting of immunosuppressed patient Plan CT abd wo Levin culture Rectal cancer 08/29/2011 05/12/2020 Last Assessment & Plan: Had a colonoscopy in 2014 and 2015 , she will go back next year for the same Incisional hernia 12/30/2008 11/29/2020 Celiac disease 04/15/2008 05/30/2022 Malignant neoplasm of other specified sites of stomach 11/03/2004 11/03/2004 Cancer 08/31/2022 documented as of this encounter (statuses as of 01/10/2023) [facility] History of Past illness Narrative* Problem Noted Date Diagnosed Date Resolved Date Acute renal failure superimp osed on stage 4 chronic kidney disease 01/02/2020 11/29/2020 Shortness of breath 11/23/2019 11/30/19 21 Meralgia paresthetica of right side 02/20/2018 06/09/2018 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 Fever 12/21/2014 09/05/2016 Overview: Episode of fever 101.7 Currently on tacrolimus post transplant Denies any chills or any other symptoms except abdominal pain x 6 days Assessment: wide differentials including any GI related vs abscess ( intraabdominal) vs others Plan Levin culture ( urine blood) Monitor closely and low threshold to start IV Abx CT abdomen to look for any intraabdominal process Abdominal pain 12/21/2014 11/29/2020 Overview: Diffuse abdominal pain x 6 days Worsened with palpation on LLQ and epigastric No diarrhea no vomiting no alcohol drink no sick contact no change in stool no melena Ddx: viral GI vs any intraabdominal pathology or infection in a setting of immunosuppressed patient Plan CT abd wo Levin culture Rectal cancer 08/29/2011 05/12/2020 Last Assessment & Plan: Had a colonoscopy in 2014 and 2015 , she will go back next year for the same Incisional hernia 12/30/2008 11/29/2020 Celiac disease 04/15/2008 05/30/2022 Malignant neoplasm of other specified sites of stomach 11/03/2004 11/03/2004 Cancer 08/31/2022 documented as of this encounter (statuses as of 01/11/2023) [facility] History of Past illness Narrative* Problem Noted Date Diagnosed Date Resolved Date Acute renal failure superimp osed on stage 4 chronic kidney disease 01/02/2020 11/29/2020 Shortness of breath 11/23/2019 11/30/19 Meralgia paresthetica of right side 02/20/2018 06/09/2018 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 Fever 12/21/2014 09/05/2016 Overview: Episode of fever 101.7 Currently on tacrolimus post transplant Denies any chills or any other symptoms except abdominal pain x 6 days Assessment: wide differentials including any GI related vs abscess ( intraabdominal) vs others Plan Levin culture ( urine blood) Monitor closely and low threshold to start IV Abx CT abdomen to look for any intraabdominal process Abdominal pain 12/21/2014 11/29/2020 Overview: Diffuse abdominal pain x 6 days Worsened with palpation on LLQ and epigastric No diarrhea no vomiting no alcohol drink no sick contact no change in stool no melena Ddx: viral GI vs any intraabdominal pathology or infection in a setting of immunosuppressed patient Plan CT abd wo Levin culture Rectal cancer 08/29/2011 05/12/2020 Last Assessment & Plan: Had a colonoscopy in 2014 and 2015 , she will go back next year for the same Incisional hernia 12/30/2008 11/29/2020 Celiac disease 04/15/2008 05/30/2022 Malignant neoplasm of other specified sites of stomach 11/03/2004 11/03/2004 Cancer 08/31/2022 documented as of this encounter (statuses as of 01/11/2023) [facility] History of Past illness Narrative* Problem Noted Date Diagnosed Date Resolved Date Acute renal failure superimp osed on stage 4 chronic kidney disease 01/02/2020 11/29/2020 Shortness of breath 11/23/2019 11/30/19 21 Meralgia paresthetica of right side 02/20/2018 06/09/2018 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 Fever 12/21/2014 09/05/2016 Overview: Episode of fever 101.7 Currently on tacrolimus post transplant Denies any chills or any other symptoms except abdominal pain x 6 days Assessment: wide differentials including any GI related vs abscess ( intraabdominal) vs others Plan Levin culture ( urine blood) Monitor closely and low threshold to start IV Abx CT abdomen to look for any intraabdominal process Abdominal pain 12/21/2014 11/29/2020 Overview: Diffuse abdominal pain x 6 days Worsened with palpation on LLQ and epigastric No diarrhea no vomiting no alcohol drink no sick contact no change in stool no melena Ddx: viral GI vs any intraabdominal pathology or infection in a setting of immunosuppressed patient Plan CT abd wo Levin culture Rectal cancer 08/29/2011 05/12/2020 Last Assessment & Plan: Had a colonoscopy in 2014 and 2015 , she will go back next year for the same Incisional hernia 12/30/2008 11/29/2020 Celiac disease 04/15/2008 05/30/2022 Malignant neoplasm of other specified sites of stomach 11/03/2004 11/03/2004 Cancer 08/31/2022 documented as of this encounter (statuses as of 01/15/2023) [facility] History of Past illness Narrative* Problem Noted Date Diagnosed Date Resolved Date Acute renal failure superimp osed on stage 4 chronic kidney disease 01/02/2020 11/29/2020 Shortness of breath 11/23/2019 11/30/19 Meralgia paresthetica of right side 02/20/2018 06/09/2018 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 Fever 12/21/2014 09/05/2016 Overview: Episode of fever 101.7 Currently on tacrolimus post transplant Denies any chills or any other symptoms except abdominal pain x 6 days Assessment: wide differentials including any GI related vs abscess ( intraabdominal) vs others Plan Levin culture ( urine blood) Monitor closely and low threshold to start IV Abx CT abdomen to look for any intraabdominal process Abdominal pain 12/21/2014 11/29/2020 Overview: Diffuse abdominal pain x 6 days Worsened with palpation on LLQ and epigastric No diarrhea no vomiting no alcohol drink no sick contact no change in stool no melena Ddx: viral GI vs any intraabdominal pathology or infection in a setting of immunosuppressed patient Plan CT abd wo Levin culture Rectal cancer 08/29/2011 05/12/2020 Last Assessment & Plan: Had a colonoscopy in 2014 and 2015 , she will go back next year for the same Incisional hernia 12/30/2008 11/29/2020 Celiac disease 04/15/2008 05/30/2022 Malignant neoplasm of other specified sites of stomach 11/03/2004 11/03/2004 Cancer 08/31/2022 documented as of this encounter (statuses as of 01/15/2023) [facility] History of Past illness Narrative* Problem Noted Date Diagnosed Date Resolved Date Acute renal failure superimp osed on stage 4 chronic kidney disease 01/02/2020 11/29/2020 Shortness of breath 11/23/2019 11/30/19 21 Meralgia paresthetica of right side 02/20/2018 06/09/2018 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 Fever 12/21/2014 09/05/2016 Overview: Episode of fever 101.7 Currently on tacrolimus post transplant Denies any chills or any other symptoms except abdominal pain x 6 days Assessment: wide differentials including any GI related vs abscess ( intraabdominal) vs others Plan Levin culture ( urine blood) Monitor closely and low threshold to start IV Abx CT abdomen to look for any intraabdominal process Abdominal pain 12/21/2014 11/29/2020 Overview: Diffuse abdominal pain x 6 days Worsened with palpation on LLQ and epigastric No diarrhea no vomiting no alcohol drink no sick contact no change in stool no melena Ddx: viral GI vs any intraabdominal pathology or infection in a setting of immunosuppressed patient Plan CT abd wo Levin culture Rectal cancer 08/29/2011 05/12/2020 Last Assessment & Plan: Had a colonoscopy in 2014 and 2015 , she will go back next year for the same Incisional hernia 12/30/2008 11/29/2020 Celiac disease 04/15/2008 05/30/2022 Malignant neoplasm of other specified sites of stomach 11/03/2004 11/03/2004 Cancer 08/31/2022 documented as of this encounter (statuses as of 01/15/2023) [facility] History of Past illness Narrative* Problem Noted Date Diagnosed Date Resolved Date Acute renal failure superimp osed on stage 4 chronic kidney disease 01/02/2020 11/29/2020 Shortness of breath 11/23/2019 11/30/19 21 Meralgia paresthetica of right side 02/20/2018 06/09/2018 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 Fever 12/21/2014 09/05/2016 Overview: Episode of fever 101.7 Currently on tacrolimus post transplant Denies any chills or any other symptoms except abdominal pain x 6 days Assessment: wide differentials including any GI related vs abscess ( intraabdominal) vs others Plan Levin culture ( urine blood) Monitor closely and low threshold to start IV Abx CT abdomen to look for any intraabdominal process Abdominal pain 12/21/2014 11/29/2020 Overview: Diffuse abdominal pain x 6 days Worsened with palpation on LLQ and epigastric No diarrhea no vomiting no alcohol drink no sick contact no change in stool no melena Ddx: viral GI vs any intraabdominal pathology or infection in a setting of immunosuppressed patient Plan CT abd wo Levin culture Rectal cancer 08/29/2011 05/12/2020 Last Assessment & Plan: Had a colonoscopy in 2014 and 2015 , she will go back next year for the same Incisional hernia 12/30/2008 11/29/2020 Celiac disease 04/15/2008 05/30/2022 Malignant neoplasm of other specified sites of stomach 11/03/2004 11/03/2004 Cancer 08/31/2022 documented as of this encounter (statuses as of 01/17/2023) [facility] History of Past illness Narrative* Problem Noted Date Diagnosed Date Resolved Date Acute renal failure superimp osed on stage 4 chronic kidney disease 01/02/2020 11/29/2020 Shortness of breath 11/23/2019 11/30/19 21 Meralgia paresthetica of right side 02/20/2018 06/09/2018 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 Fever 12/21/2014 09/05/2016 Overview: Episode of fever 101.7 Currently on tacrolimus post transplant Denies any chills or any other symptoms except abdominal pain x 6 days Assessment: wide differentials including any GI related vs abscess ( intraabdominal) vs others Plan Levin culture ( urine blood) Monitor closely and low threshold to start IV Abx CT abdomen to look for any intraabdominal process Abdominal pain 12/21/2014 11/29/2020 Overview: Diffuse abdominal pain x 6 days Worsened with palpation on LLQ and epigastric No diarrhea no vomiting no alcohol drink no sick contact no change in stool no melena Ddx: viral GI vs any intraabdominal pathology or infection in a setting of immunosuppressed patient Plan CT abd wo Levin culture Rectal cancer 08/29/2011 05/12/2020 Last Assessment & Plan: Had a colonoscopy in 2014 and 2015 , she will go back next year for the same Incisional hernia 12/30/2008 11/29/2020 Celiac disease 04/15/2008 05/30/2022 Malignant neoplasm of other specified sites of stomach 11/03/2004 11/03/2004 Cancer 08/31/2022 documented as of this encounter (statuses as of 01/18/2023) [facility] History of Past illness Narrative* Problem Noted Date Diagnosed Date Resolved Date Acute renal failure superimp osed on stage 4 chronic kidney disease 01/02/2020 11/29/2020 Shortness of breath 11/23/2019 11/30/19 21 Meralgia paresthetica of right side 02/20/2018 06/09/2018 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 Fever 12/21/2014 09/05/2016 Overview: Episode of fever 101.7 Currently on tacrolimus post transplant Denies any chills or any other symptoms except abdominal pain x 6 days Assessment: wide differentials including any GI related vs abscess ( intraabdominal) vs others Plan Levin culture ( urine blood) Monitor closely and low threshold to start IV Abx CT abdomen to look for any intraabdominal process Abdominal pain 12/21/2014 11/29/2020 Overview: Diffuse abdominal pain x 6 days Worsened with palpation on LLQ and epigastric No diarrhea no vomiting no alcohol drink no sick contact no change in stool no melena Ddx: viral GI vs any intraabdominal pathology or infection in a setting of immunosuppressed patient Plan CT abd wo Levin culture Rectal cancer 08/29/2011 05/12/2020 Last Assessment & Plan: Had a colonoscopy in 2014 and 2015 , she will go back next year for the same Incisional hernia 12/30/2008 11/29/2020 Celiac disease 04/15/2008 05/30/2022 Malignant neoplasm of other specified sites of stomach 11/03/2004 11/03/2004 Cancer 08/31/2022 documented as of this encounter (statuses as of 01/22/2023) [facility] History of Past illness Narrative* Problem Noted Date Diagnosed Date Resolved Date Acute renal failure superimp osed on stage 4 chronic kidney disease 01/02/2020 11/29/2020 Shortness of breath 11/23/2019 11/30/19 21 Meralgia paresthetica of right side 02/20/2018 06/09/2018 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 Fever 12/21/2014 09/05/2016 Overview: Episode of fever 101.7 Currently on tacrolimus post transplant Denies any chills or any other symptoms except abdominal pain x 6 days Assessment: wide differentials including any GI related vs abscess ( intraabdominal) vs others Plan Levin culture ( urine blood) Monitor closely and low threshold to start IV Abx CT abdomen to look for any intraabdominal process Abdominal pain 12/21/2014 11/29/2020 Overview: Diffuse abdominal pain x 6 days Worsened with palpation on LLQ and epigastric No diarrhea no vomiting no alcohol drink no sick contact no change in stool no melena Ddx: viral GI vs any intraabdominal pathology or infection in a setting of immunosuppressed patient Plan CT abd wo Levin culture Rectal cancer 08/29/2011 05/12/2020 Last Assessment & Plan: Had a colonoscopy in 2014 and 2015 , she will go back next year for the same Incisional hernia 12/30/2008 11/29/2020 Celiac disease 04/15/2008 05/30/2022 Malignant neoplasm of other specified sites of stomach 11/03/2004 11/03/2004 Cancer 08/31/2022 documented as of this encounter (statuses as of 02/12/2023) [facility] History of Past illness Narrative* Problem Noted Date Diagnosed Date Resolved Date Acute renal failure superimp osed on stage 4 chronic kidney disease 01/02/2020 11/29/2020 Shortness of breath 11/23/2019 11/30/19 21 Meralgia paresthetica of right side 02/20/2018 06/09/2018 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 Fever 12/21/2014 09/05/2016 Overview: Episode of fever 101.7 Currently on tacrolimus post transplant Denies any chills or any other symptoms except abdominal pain x 6 days Assessment: wide differentials including any GI related vs abscess ( intraabdominal) vs others Plan Levin culture ( urine blood) Monitor closely and low threshold to start IV Abx CT abdomen to look for any intraabdominal process Abdominal pain 12/21/2014 11/29/2020 Overview: Diffuse abdominal pain x 6 days Worsened with palpation on LLQ and epigastric No diarrhea no vomiting no alcohol drink no sick contact no change in stool no melena Ddx: viral GI vs any intraabdominal pathology or infection in a setting of immunosuppressed patient Plan CT abd wo Levin culture Rectal cancer 08/29/2011 05/12/2020 Last Assessment & Plan: Had a colonoscopy in 2014 and 2015 , she will go back next year for the same Incisional hernia 12/30/2008 11/29/2020 Celiac disease 04/15/2008 05/30/2022 Malignant neoplasm of other specified sites of stomach 11/03/2004 11/03/2004 Cancer 08/31/2022 documented as of this encounter (statuses as of 02/12/2023) [facility] Diagnosis Type 2 diabetes mellitus with microalbuminuria, with long-term current use of insulin (HCC)- Primary Medication management Encounter for long-term (current) use of other medications [facility] Bilateral wrist pain- Primary Pain in joint, forearm Chronic pain of left wrist Acute pain of right wrist [facility] Acute pain of right wrist [facility] Diagnosis Type 2 diabetes mellitus with hyperosmolar coma, with long-term current use of insulin (HCC)- Primary [facility] Diagnosis Bilateral wrist pain Pain in joint, forearm Chronic pain of left wrist Acute pain of right wrist [facility] Diagnosis Redness and swelling of thigh- Primary Pain of right lower extremity Primary hypertension Unspecified essential hypertension Fever, unspecified fever cause Nausea Nausea alone Swelling of limb [facility] Diagnosis Lump of right thigh- Primary Tenderness of right lower extremity [facility] Diagnosis Lump of right thigh- Primary Localized swelling, mass, or lump of left upper extremity [facility] Diagnosis Localized swelling, mass, or lump of right lower extremity [facility] Diagnosis Type 2 diabetes mellitus with microalbuminuria, with long-term current use of insulin (HCC)- Primary Medication management Encounter for long-term (current) use of other medications [facility] Diagnosis CKD (chronic kidney disease) stage 4, GFR 15-29 ml/min (HCC)- Primary Chronic kidney disease, Stage IV (severe) [facility] Diagnosis Localized swelling, mass, or lump of right lower extremity [facility] Diagnosis Lump of right thigh- Primary Type 2 diabetes mellitus with hyperosmolar coma, with long-term current use of insulin ([facility]) [facility] Diagnosis Type 2 diabetes mellitus with microalbuminuria, with long-term current use of insulin ([facility])- Primary [facility] Diagnosis Abnormal vaginal bleeding- Primary Other specified noninflammatory disorder of vagina Chronic edema Edema Sleep disturbances Sleep disturbance, unspecified Acute otitis externa of right ear, unspecified type Pelvic cramping Unspecified symptom associated with female genital organs [facility] Diagnosis Abnormal vaginal bleeding- Primary Other specified noninflammatory disorder of vagina [facility] Diagnosis Abnormal vaginal bleeding Other specified noninflammatory disorder of vagina [facility] Diagnosis Type 2 diabetes mellitus with microalbuminuria, with long-term current use of insulin ([facility])- Primary Medication management Encounter for long-term (current) use of other medications [facility]* Diagnosis History of recent hospitalization- Primary Personal history of unspecified disease Diarrhea, unspecified type Lower abdominal pain Abdominal pain, other specified site Hyperkalemia Hyperpotassemia Cellulitis, unspecified cellulitis site Anemia of chronic kidney failure, stage 4 (severe) ([facility]) [facility]* Diagnosis Diarrhea, unspecified type- Primary [facility]* Diagnosis Acquired hypothyroidism Unspecified hypothyroidism [facility] Diagnosis Chronic edema Edema [facility] Diagnosis Diarrhea, unspecified type- Primary Right wrist pain Pain in joint, forearm [facility] [facility] Diagnosis Dermatitis Contact dermatitis and other eczema, due to unspecified cause [facility] Diagnosis Dermatitis- Primary Contact dermatitis and other eczema, due to unspecified cause Itching Unspecified pruritic disorder [facility] Diagnosis 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)- Primary Type II or unspecified type diabetes mellitus with renal manifestations, not stated as uncontrolled Pre-transplant evaluation for ESRD (end stage renal disease) Other specified pre-operative examination Hypertension, unspecified type [facility] Diagnosis Disorder of liver- Primary Unspecified disorder of liver Liver replaced by transplant (HCC) Liver replaced by transplant [facility] Diagnosis Type 2 diabetes mellitus with hyperosmolarity 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, with long-term current use of insulin (HCC)- Primary End stage kidney disease (HCC) End stage renal disease Dizziness Dizziness and giddiness Hypotension, unspecified hypotension type Other fatigue Acquired hypothyroidism Unspecified hypothyroidism Chronic diarrhea Diarrhea Liver replaced by transplant (HCC) Liver replaced by transplant [facility] Diagnosis Diarrhea, unspecified type- Primary [facility] Diagnosis Encounter for screening mammogram for breast cancer [facility] Diagnosis Hypothyroidism, unspecified type [facility] Diagnosis Pre-transplant evaluation for kidney transplant- Primary Other specified pre-operative examination [facility] Diagnosis Type 2 diabetes mellitus with microalbuminuria, with long-term current use of insulin (HCC)- Primary [facility] Diagnosis Type 2 diabetes mellitus with hyperosmolarity 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, with long-term current use of insulin (HCC)- Primary [facility]* Diagnosis Type 2 diabetes mellitus with microalbuminuria, with long-term current use of insulin (HCC)- Primary [facility]* Diagnosis Hypothyroidism, unspecified type Diarrhea, unspecified type Sleep disturbances Sleep disturbance, unspecified Mixed hyperlipidemia Chronic edema Edema [facility]* Diagnosis Right wrist pain Pain in joint, forearm [facility] Diagnosis Type 2 diabetes mellitus with hyperosmolarity 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, with long-term current use of insulin (HCC)- Primary [facility]* Diagnosis Pre-transplant evaluation for kidney transplant- Primary Other specified pre-operative examination [facility] Chronic pain of both knees- Primary [facility] Diagnosis Pre-transplant evaluation for ESRD (end stage renal disease)- Primary Other specified pre-operative examination Liver transplant recipient (HCC) ESRD on dialysis (HCC) End stage renal disease Coronary artery disease involving [place] coronary artery of [place] heart without angina pectoris Type 2 diabetes mellitus with hyperosmolarity 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, with long-term current use of insulin ([facility]) Primary hypertension Unspecified essential hypertension [facility] Diagnosis Awaiting organ transplant- Primary Awaiting organ transplant status Dietary counseling and surveillance Dietary surveillance and counseling [facility] Diagnosis Type 2 diabetes mellitus with hyperosmolarity 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, with long-term current use of insulin (HCC)- Primary [facility] Diagnosis Dermatitis Contact dermatitis and other eczema, due to unspecified cause [facility] Diagnosis Pre-transplant evaluation for end stage renal disease- Primary Other specified pre-operative examination Pre-operative cardiovascular examination History of heart artery stent Postsurgical percutaneous transluminal coronary angioplasty status Awaiting organ transplant Awaiting organ transplant status [facility] Diagnosis Rash- Primary Rash and other nonspecific skin eruption Itching Unspecified pruritic disorder [facility]* Diagnosis Left hip pain- Primary Pain in joint, pelvic region and thigh Fall, initial encounter [facility] Diagnosis Type 2 diabetes mellitus with hyperosmolarity 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, with long-term current use of insulin ([facility]) [facility] Diagnosis Left knee pain, unspecified chronicity- Primary Left hip pain Pain in joint, pelvic region and thigh [facility]* Diagnosis Pre-transplant evaluation for kidney transplant- Primary Other specified pre-operative examination [facility]* Diagnosis Nausea- Primary Nausea alone Epigastric pain Abdominal pain, epigastric Type 2 diabetes mellitus with hyperosmolarity 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, with long-term current use of insulin ([facility]) [facility] Diagnosis Type 2 diabetes mellitus with hyperosmolarity 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, with long-term current use of insulin (HCC) [facility] Diagnosis Encounter for screening for osteoporosis Special screening for osteoporosis Asymptomatic postmenopausal status [facility] Diagnosis Encounter for screening mammogram for breast cancer [facility] Diagnosis Epigastric pain- Primary Abdominal pain, epigastric Nausea Nausea alone Left knee pain, unspecified chronicity Medication management Encounter for long-term (current) use of other medications Encounter for immunization Need for other specified prophylactic vaccination against single bacterial disease [facility] Diagnosis Liver replaced by transplant (HCC)- Primary Liver replaced by transplant [facility] Diagnosis Preop cardiovascular exam- Primary Pre-operative cardiovascular examination [facility]* Diagnosis Sleep disturbances Sleep disturbance, unspecified documented in this encounter [facility] for referral (narrative)* Diagnostic Procedure Only (Routine) - Closed Specialty Diagnoses / Procedures Referred By Ibrahima dick Referred To Contact XR IMAGING Diagnoses Bilateral wrist pain Chronic pain of left wrist Acute pain of right wrist Procedures XR HAND GENERAL 3V PA/LAT/OBL BILATERAL RADEX HAND MINIMUM 3 VIEWS Josse Lance APRN.IT SECURITY ENGINEER [address] [place] [address] Xr Imaging Referral ID Status Reason Start Date Expiration Date V isits Requested Visits Authorized [id number] Closed Auto-Generate d Referral 07/03/2021 08/02/2022 1 1 * Consult, Test, Treat (Routine) - Pending Review Specialty Diagnoses / Procedures Referred By Ibrahima dick Referred To Contact Orthopedics Diagnoses Bilateral wrist pain Chronic pain of left wrist Acute pain of right wrist Procedures CONSULT TO ORTHOPAEDICS OFFICE/OUTPATIENT [facility] MDM 60-74 MINUTES Josse Lance APRN.IT SECURITY ENGINEER [address] [place] [address] Referral ID Status Reason Start Date Expiration Date Visits Requested Visits Authorized [id number] Pending Review PCP Requested Referral 07/03/2021 07/03/2022 1 1 * Diagnostic Procedure Only (Routine) - Closed Specialty Diagnoses / Procedures Referred By Contac t Referred To Contact XR IMAGING Diagnoses Bilateral wrist pain Chronic pain of left wrist Acute pain of right wrist Procedures XR HAND GENERAL 3V PA/LAT/OBL LEFT RADEX HAND MINIMUM 3 VIEWS Josse Lance APRN.IT SECURITY ENGINEER [address] [place] [address] Xr Imaging Referral ID Status Reason Start Date Expiration Date V isits Requested Visits Authorized [id number] Closed Auto-Generate d Referral 07/03/2021 08/02/2022 1 1 * Diagnostic Procedure Only (Routine) - Closed Specialty Diagnoses / Procedures Referred By Contac t Referred To Contact XR IMAGING Diagnoses Bilateral wrist pain Chronic pain of left wrist Acute pain of right wrist Procedures XR HAND GENERAL 3V PA/LAT/OBL RIGHT RADEX HAND MINIMUM 3 VIEWS Josse Lance APRN.IT SECURITY ENGINEER [address] [place] [address] Xr Imaging Referral ID Status Reason Start Date Expiration Date V isits Requested Visits Authorized [id number] Closed Auto-Generate d Referral 07/03/2021 08/02/2022 1 1 [facility] for referral (narrative)* Outpatient Procedure (Urgent) - Authorized Specialty Diagnoses / Procedures Referred By Contac t Referred To [facility] Diagnoses Redness and swelling of thigh Swelling of limb Procedures US LEG VEIN DVT UNL VAS LAB DUP-SCAN XTR VEINS UNILATERAL/LIMITED STUDY Jame Hunt MD [address] [place] [address] [facility] [address] [place] [address] Referral ID Status Reason Start Date Expiration Date Visits Requested Visits Authorized [id number] Authorized Auto-Generat ed Referral 08/14/2021 03/03/2022 1 1 [facility] for referral (narrative)* Diagnostic Procedure Only (Routine) - Authorized Specialty Diagnoses / Procedures Referred By Contac t Referred To Contact US IMAGING Diagnoses Lump of right thigh Tenderness of right lower extremity Procedures US EXTREMITY MASS/FLUID COLLECTION RT Silva Plasencia APRN.PROPERTY MANAGEMENT COORDINATOR [address] [place] [address] Us Imaging Referral ID Status Reason Start Date Expiration Date Visits Requested Visits Authorized [id number] Authorized Auto-Generat ed Referral 08/25/2021 09/24/2022 1 1 [facility] for referral (narrative)* Diagnostic Procedure Only (Routine) - Closed Specialty Diagnoses / Procedures Referred By Contac t Referred To Contact MR IMAGING Diagnoses Localized swelling, mass, or lump of right lower extremity Procedures MRI UPPER LEG WO/W IVCON RT MRI LOWER EXTREM OTH/THN JT W/O & W/CONTR MATR Silva Plasencia APRN.PROPERTY MANAGEMENT COORDINATOR [address] [place] [address] Mr Imaging Referral ID Status Reason Start Date Expiration Date Visits Re quested Visits Authorized [id number] Closed 09/21/2021 10/21/2021 1 1 [facility] for referral (narrative)* Diagnostic Procedure Only (Urgent) - Pending Review Specialty Diagnoses / Procedures Referred By Contac t Referred To Contact US IMAGING Diagnoses Abnormal vaginal bleeding Procedures US FEMALE PELVIS TRANSABD LTD US PELVIC NONOBSTETRIC IMAGE DCMTN LIMITED/F/U Jaci Lucero APRN.PROPERTY MANAGEMENT COORDINATOR [address] [place] [address] Us Imaging Referral ID Status Reason Start Date Expiration Date Visits Requested Visits Authorized [id number] Pending Review Auto-Generat ed Referral 10/20/2021 11/19/2022 1 1 * Diagnostic Procedure Only (Routine) - Closed Specialty Diagnoses / Procedures Referred By Contac t Referred To Contact US IMAGING Diagnoses Abnormal vaginal bleeding Procedures US FEMALE PELVIS TRANSABD LTD US PELVIC NONOBSTETRIC IMAGE DCMTN LIMITED/F/U Jaci Lucero APRN.PROPERTY MANAGEMENT COORDINATOR [address] [place] [address] Us Imaging Referral ID Status Reason Start Date Expiration Date V isits Requested Visits Authorized [id number] Closed Auto-Generate d Referral 10/20/2021 11/19/2022 1 1 [facility] for referral (narrative)* Diagnostic Procedure Only (Routine) - Closed Specialty Diagnoses / Procedures Referred By Contac t Referred To Contact US IMAGING Diagnoses Abnormal vaginal bleeding Procedures US FEMALE PELVIS TRANSVAG US TRANSVAGINAL Jaci Lucero APRN.PROPERTY MANAGEMENT COORDINATOR [address] [place] [address] Us Imaging Referral ID Status Reason Start Date Expiration Date V isits Requested Visits Authorized [id number] Closed Auto-Generate d Referral 10/20/2021 11/19/2022 1 1 [facility] for referral (narrative)* Diagnostic Procedure Only (Routine) - Closed Specialty Diagnoses / Procedures Referred By Contac t Referred To Contact US IMAGING Diagnoses Abnormal vaginal bleeding Procedures US FEMALE PELVIS TRANSVAG US TRANSVAGINAL Jaci Lucero APRN.PROPERTY MANAGEMENT COORDINATOR [address] [place] [address] Us Imaging Referral ID Status Reason Start Date Expiration Date V isits Requested Visits Authorized [id number] Closed Auto-Generate d Referral 10/20/2021 11/19/2022 1 1 * Diagnostic Procedure Only (Routine) - Closed Specialty Diagnoses / Procedures Referred By Contac t Referred To Contact US IMAGING Diagnoses Abnormal vaginal bleeding Procedures US FEMALE PELVIS TRANSABD LTD US PELVIC NONOBSTETRIC IMAGE DCMTN LIMITED/F/U Jaci Lucero APRN.PROPERTY MANAGEMENT COORDINATOR [address] [place] [address] Us Imaging Referral ID Status Reason Start Date Expiration Date V isits Requested Visits Authorized [id number] Closed Auto-Generate d Referral 10/20/2021 11/19/2022 1 1 [facility] for referral (narrative)* Diagnostic Procedure Only (Routine) - Authorized Specialty Diagnoses / Procedures Referred By Contac t Referred To Contact BR IMAGING Diagnoses Encounter for screening mammogram for breast cancer Procedures JAY SCREENING SCREENING MAMMOGRAPHY BI 2-VIEW BREAST INC Jame Bustos MD [address] [place] [address] [facility] [address] [place] [address] Referral ID Status Reason Start Date Expiration Date Visits Requested Visits Authorized [id number] Authorized Auto-Generat ed Referral 05/02/2022 06/01/2023 1 1 [facility] for referral (narrative)* Diagnostic Procedure Only (Urgent) - Closed Specialty Diagnoses / Procedures Referred By Contac t Referred To Contact XR IMAGING Diagnoses Left hip pain Fall, initial encounter Procedures XR HIP GENERAL 3V PELV/AP/LAT LEFT RADEX HIP UNILATERAL WITH PELVIS 2-3 VIEWS Erin Plasencia APRN.PROPERTY MANAGEMENT COORDINATOR [address] [place] [address] [place] [address] Referral ID Status Reason Start Date Expiration Date V isits Requested Visits Authorized [id number] Closed Auto-Generate d Referral 11/07/2022 12/07/2023 1 1 [facility] for referral (narrative)* Diagnostic Procedure Only (Routine) - Closed Specialty Diagnoses / Procedures Referred By Contac t Referred To Contact XR IMAGING Diagnoses Left hip pain Left knee pain, unspecified chronicity Procedures XR KNEE GENERAL 4V AP BOTH/PA BOTH/LAT/MERC LEFT RADIOLOGIC EXAM KNEE COMPLETE 4/MORE VIEWS Ramin Mack PA-C [address] [place] [address] [place] [address] Referral ID Status Reason Start Date Expiration Date V isits Requested Visits Authorized [id number] Closed Auto-Generate d Referral 11/26/2022 12/26/2023 1 1 * Consult, Test, Treat (Routine) - Pending Review Specialty Diagnoses / Procedures Referred By Geminiac t Referred To Contact Orthopedics Diagnoses Left hip pain Left knee pain, unspecified chronicity Procedures CONSULT TO ORTHOPAEDICS OFFICE/OUTPATIENT [facility] 60-74 MINUTES Charbel Esparza MD [address] [facility] [place] [id number] Referral ID Status Reason Start Date Expiration Date Visits Requested Visits Authorized [id number] Pending Review PCP Requested Referral 11/26/2022 11/26/2023 1 1 [facility] for referral (narrative)* Diagnostic Procedure Only (Routine) - Closed Specialty Diagnoses / Procedures Referred By Ibrahima t Referred To Contact BR IMAGING Diagnoses Encounter for screening mammogram for breast cancer Procedures JAY SCREENING SCREENING MAMMOGRAPHY BI 2-VIEW BREAST INC CAD Jame Hunt MD [address] [place] [address] [facility] [address] [place] [address] Referral ID Status Reason Start Date Expiration Date V isits Requested Visits Authorized [id number] Closed Auto-Generate d Referral 05/02/2022 06/01/2023 1 1 [facility] for visit Narrative* Diagnostic Procedure Only (Routine) - Closed Specialty Diagnoses / Procedures Referred By Contac t Referred To Contact MR IMAGING Diagnoses Localized swelling, mass, or lump of right lower extremity Procedures MRI UPPER LEG WO/W IVCON RT MRI LOWER EXTREM OTH/THN JT W/O & W/CONTR Silva Rowland APRN.PROPERTY MANAGEMENT COORDINATOR [address] [place] [address] Mr Imaging Referral ID Status Reason Start Date Expiration Date Visits Re quested Visits Authorized [id number] Closed 09/21/2021 10/21/2021 1 1 [facility] Diagnostic Procedure Only (Routine) - Closed Specialty Diagnoses / Procedures Referred By Ibrahima dick Referred To Contact BR IMAGING Diagnoses Encounter for screening mammogram for breast cancer Procedures JAY SCREENING SCREENING MAMMOGRAPHY BI 2-VIEW BREAST INC Jame Bustos MD [address] [place] [address] [facility] [address] [place] [address] Referral ID Status Reason Start Date Expiration Date V isits Requested Visits Authorized [id number] Closed Auto-Generate d Referral 05/02/2022 06/01/2023 1 1 [facility] Summary Purpose Family History No Family History Records FoundNo Family History Records FoundNo Family History Records FoundNo Family History Records FoundNo Family History Records Found Advance Directives No Advanced Directives Records FoundDocuments on File Type Date 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 Advance Directive(s) Advance Directive(s) 04/25/2021 7:26 AM Advance Directive(s) 04/04/2021 7:07 AM Advance Directive(s) 08/24/2020 12:28 PM Advance Directive(s) 08/23/2020 10:34 AM Advance Directive(s) 03/02/2020 10:06 AM Advance Directive(s) 02/29/2020 3:36 PM Advance Directive(s) 01/02/2020 6:27 PM Advance Directive(s) 07/30/2018 8:17 AM Latest Code Status on File Code Status Date Activated Date Inactivated Comments Full Code 01/02/2020 12:24 PM 01/07/2020 8:40 PM Full Code Order Discussed With: Patient Documents on File Type Date Recorded 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 Advance Directive(s) Advance Directive(s) 04/25/2021 7:26 AM Advance Directive(s) 04/04/2021 7:07 AM Advance Directive(s) 08/24/2020 12:28 PM Advance Directive(s) 08/23/2020 10:34 AM Advance Directive(s) 03/02/2020 10:06 AM Advance Directive(s) 02/29/2020 3:36 PM Advance Directive(s) 01/02/2020 6:27 PM Advance Directive(s) 07/30/2018 8:17 AM Latest Code Status on File Code Status Date Activated Date Inactivated Comments Full Code 01/02/2020 12:24 PM 01/07/2020 8:40 PM Documents on File Type Date Recorded 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 Advance Directive(s) Advance Directive(s) 07/30/2018 8:17 AM Documents on File Type Date Recorded 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 Advance Directive(s) Advance Directive(s) 07/30/2018 8:17 AM Latest Code Status on File Code Status Date Activated Date Inactivated Comments Full Code 01/02/2020 12:24 PM 01/07/2020 8:40 PM Question Answer Comments Full Code Order Discussed With: Patient Latest Code Status on File Code Status Date Activated Date Inactivated Comments Full Code 01/02/2020 12:24 PM 01/07/2020 8:40 PM Question Answer Comments Full Code Order Discussed With: Patient Latest Code Status on File Code Status Date Activated Date Inactivated Comments Full Code 01/02/2020 12:24 PM 01/07/2020 8:40 PM Question Answer Comments Full Code Order Discussed With: Patient Reason for Referral Specialty Diagnoses / Procedures Referred By Ibrahima dick Referred To Contact MR IMAGING Diagnoses Localized swelling, mass, or lump of right lower extremity Procedures MRI UPPER LEG WO/W IVCON RT MRI LOWER EXTREM OTH/THN JT W/O & W/CONTR Silva Rowland APRN.PROPERTY MANAGEMENT COORDINATOR [address] [place] [address] Mr Imaging Referral ID Status Reason Start Date Expiration Date Visits Requested Visits Authorized [id number] Pending Review Auto-Generat ed Referral 09/06/2021 10/06/2022 1 1 Specialty Diagnoses / Procedures Referred By Ibrahima dick Referred To Contact TRANSPLANT Diagnoses 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 [address] [place] [address] Referral ID Status Reason Start Date Expiration Date Visits Requested Visits Authorized [id number] Pending Review Financial Clearance Required - [employer] Pay[employer] 04/24/2022 04/24/2023 99 99 Specialty Diagnoses / Procedures Referred By Contac t Referred To Contact Gastroenterology Diagnoses Chronic diarrhea Procedures CONSULT TO GASTROENTEROLOGY OFFICE/OUTPATIENT [facility] 60-74 MINUTES Silva Plasencia APRN.PROPERTY MANAGEMENT COORDINATOR [address] [place] [address] Referral ID Status Reason Start Date Expiration Date Visits Requested Visits Authorized [id number] Pending Review PCP Requested Referral 05/02/2022 05/02/2023 1 1 Specialty Diagnoses / Procedures Referred By Contac t Referred To Contact Erin Plasencia APRN.PROPERTY MANAGEMENT COORDINATOR [address] [place] [address] Referral ID Status Reason Start Date Expiration Date Visits Re quested Visits Authorized [id number] Closed 1 1 Referral ID Status Reason Start Date Expiration Date Visits Re quested Visits Authorized [id number] Closed 1 1 Specialty Diagnoses / Procedures Referred By Contac t Referred To Contact Gastroenterology Diagnoses Pre-transplant evaluation for end stage renal disease Awaiting organ transplant Procedures CONSULT TO GASTROENTEROLOGY OFFICE/OUTPATIENT [facility] MDM 60-74 MINUTES Kel Victoria MD [address] [place] [address] Referral ID Status Reason Start Date Expiration Date Visits Requested Visits Authorized [id number] Pending Review PCP Requested Referral 10/03/2022 09/26/2023 1 1 Specialty Diagnoses / Procedures Referred By Contac t Referred To Contact Cardiology Diagnoses Pre-transplant evaluation for end stage renal disease Pre-operative cardiovascular examination History of heart artery stent Procedures CONSULT TO CARDIOLOGY OFFICE/OUTPATIENT [facility] 60-74 MINUTES Kel Victoria MD [address] [place] [address] Referral ID Status Reason Start Date Expiration Date Visits Requested Visits Authorized [id number] Pending Review PCP Requested Referral 10/03/2022 09/26/2023 1 1 Specialty Diagnoses / Procedures Referred By Contac t Referred To Contact Diagnoses Type 2 diabetes mellitus with hyperosmolarity 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, with long-term current use of insulin (HCC) Ramin [facility] [address] [place] [address] Referral ID Status Reason Start Date Expiration Date Visits Re quested Visits Authorized [id number] Closed 1 1 Specialty Diagnoses / Procedures Referred By Contac t Referred To Contact Diagnoses Pre-transplant evaluation for kidney transplant Procedures CONSULT TO HEPATOLOGY OFFICE/OUTPATIENT [facility] 60-74 MINUTES Kel Victoria MD [address] [place] [address] Referral ID Status Reason Start Date Expiration Date Visits Requested Visits Authorized [id number] Pending Review PCP Requested Referral 12/19/2023 1 1 Specialty Diagnoses / Procedures Referred By Contac t Referred To Contact Diagnoses Preop cardiovascular exam Procedures CARDIOVASCULAR MEDICINE OP FOLLOW UP APPT ORDER Lizeth Bey MD [address] [place] [address] Referral ID Status Reason Start Date Expiration Date Visits Requested Visits Authorized [id number] Ref Not Required PCP Requested Referral 01/10/2023 01/10/2024 1 1 Additional Source Comments INFORMATION SOURCE (unrecogn ized section and content) DATE CREATED AUTHOR AUTHOR'S ORGANIZ ATION 12/07/2019 [facility] DATE CREATED AUTHOR AUTHOR'S ORGANIZ ATION 05/03/2020 [facility] DATE CREATED AUTHOR AUTHOR'S ORGANIZ ATION 01/12/2023 [facility] DATE CREATED AUTHOR AUTHOR'S ORGANIZ ATION 02/28/2023 [facility] Source Comments (unrecognize d section and content) In the event this informatio n is protected by the Federal Confidentiality of Alcohol and Drug Abuse Patient Records regulations: The Federal rules restrict any use of the information to criminally investigate or prosecute any alcohol or drug abuse patient.[facility] HospitalIn the event this information is protected by the Federal Confidentiality of Alcohol and Drug Abuse Patient Records regulations: The Federal rules restrict any use of the information to criminally investigate or prosecute any alcohol or drug abuse patient.[facility] HospitalIn the event this information is protected by the Federal Confidentiality of Alcohol and Drug Abuse Patient Records regulations: The Federal rules restrict any use of the information to criminally investigate or prosecute any alcohol or drug abuse patient.[facility] HospitalIn the event this information is protected by the Federal Confidentiality of Alcohol and Drug Abuse Patient Records regulations: The Federal rules restrict any use of the information to criminally investigate or prosecute any alcohol or drug abuse patient.[facility] HospitalIn the event this information is protected by the Federal Confidentiality of Alcohol and Drug Abuse Patient Records regulations: The Federal rules restrict any use of the information to criminally investigate or prosecute any alcohol or drug abuse patient.[facility] HospitalIn the event this information is protected by the Federal Confidentiality of Alcohol and Drug Abuse Patient Records regulations: The Federal rules restrict any use of the information to criminally investigate or prosecute any alcohol or drug abuse patient.[facility] HospitalIn the event this information is protected by the Federal Confidentiality of Alcohol and Drug Abuse Patient Records regulations: The Federal rules restrict any use of the information to criminally investigate or prosecute any alcohol or drug abuse patient.[facility] HospitalIn the event this information is protected by the Federal Confidentiality of Alcohol and Drug Abuse Patient Records regulations: The Federal rules restrict any use of the information to criminally investigate or prosecute any alcohol or drug abuse patient.[facility] HospitalIn the event this information is protected by the Federal Confidentiality of Alcohol and Drug Abuse Patient Records regulations: The Federal rules restrict any use of the information to criminally investigate or prosecute any alcohol or drug abuse patient.[facility] HospitalIn the event this information is protected by the Federal Confidentiality of Alcohol and Drug Abuse Patient Records regulations: The Federal rules restrict any use of the information to criminally investigate or prosecute any alcohol or drug abuse patient.[facility] HospitalIn the event this information is protected by the Federal Confidentiality of Alcohol and Drug Abuse Patient Records regulations: The Federal rules restrict any use of the information to criminally investigate or prosecute any alcohol or drug abuse patient.[facility] HospitalIn the event this information is protected by the Federal Confidentiality of Alcohol and Drug Abuse Patient Records regulations: The Federal rules restrict any use of the information to criminally investigate or prosecute any alcohol or drug abuse patient.[facility] HospitalIn the event this information is protected by the Federal Confidentiality of Alcohol and Drug Abuse Patient Records regulations: The Federal rules restrict any use of the information to criminally investigate or prosecute any alcohol or drug abuse patient.[facility] HospitalIn the event this information is protected by the Federal Confidentiality of Alcohol and Drug Abuse Patient Records regulations: The Federal rules restrict any use of the information to criminally investigate or prosecute any alcohol or drug abuse patient.[facility] HospitalIn the event this information is protected by the Federal Confidentiality of Alcohol and Drug Abuse Patient Records regulations: The Federal rules restrict any use of the information to criminally investigate or prosecute any alcohol or drug abuse patient.[facility] HospitalIn the event this information is protected by the Federal Confidentiality of Alcohol and Drug Abuse Patient Records regulations: The Federal rules restrict any use of the information to criminally investigate or prosecute any alcohol or drug abuse patient.[facility] HospitalIn the event this information is protected by the Federal Confidentiality of Alcohol and Drug Abuse Patient Records regulations: The Federal rules restrict any use of the information to criminally investigate or prosecute any alcohol or drug abuse patient.[facility] HospitalIn the event this information is protected by the Federal Confidentiality of Alcohol and Drug Abuse Patient Records regulations: The Federal rules restrict any use of the information to criminally investigate or prosecute any alcohol or drug abuse patient.[facility] HospitalIn the event this information is protected by the Federal Confidentiality of Alcohol and Drug Abuse Patient Records regulations: The Federal rules restrict any use of the information to criminally investigate or prosecute any alcohol or drug abuse patient.[facility] HospitalIn the event this information is protected by the Federal Confidentiality of Alcohol and Drug Abuse Patient Records regulations: The Federal rules restrict any use of the information to criminally investigate or prosecute any alcohol or drug abuse patient.[facility] HospitalIn the event this information is protected by the Federal Confidentiality of Alcohol and Drug Abuse Patient Records regulations: The Federal rules restrict any use of the information to criminally investigate or prosecute any alcohol or drug abuse patient.[facility] HospitalIn the event this information is protected by the Federal Confidentiality of Alcohol and Drug Abuse Patient Records regulations: The Federal rules restrict any use of the information to criminally investigate or prosecute any alcohol or drug abuse patient.[facility] HospitalIn the event this information is protected by the Federal Confidentiality of Alcohol and Drug Abuse Patient Records regulations: The Federal rules restrict any use of the information to criminally investigate or prosecute any alcohol or drug abuse patient.[facility] HospitalIn the event this information is protected by the Federal Confidentiality of Alcohol and Drug Abuse Patient Records regulations: The Federal rules restrict any use of the information to criminally investigate or prosecute any alcohol or drug abuse patient.[facility] HospitalIn the event this information is protected by the Federal Confidentiality of Alcohol and Drug Abuse Patient Records regulations: The Federal rules restrict any use of the information to criminally investigate or prosecute any alcohol or drug abuse patient.[facility] HospitalIn the event this information is protected by the Federal Confidentiality of Alcohol and Drug Abuse Patient Records regulations: The Federal rules restrict any use of the information to criminally investigate or prosecute any alcohol or drug abuse patient.[facility] HospitalIn the event this information is protected by the Federal Confidentiality of Alcohol and Drug Abuse Patient Records regulations: The Federal rules restrict any use of the information to criminally investigate or prosecute any alcohol or drug abuse patient.[facility] HospitalIn the event this information is protected by the Federal Confidentiality of Alcohol and Drug Abuse Patient Records regulations: The Federal rules restrict any use of the information to criminally investigate or prosecute any alcohol or drug abuse patient.[facility] HospitalIn the event this information is protected by the Federal Confidentiality of Alcohol and Drug Abuse Patient Records regulations: The Federal rules restrict any use of the information to criminally investigate or prosecute any alcohol or drug abuse patient.[facility] HospitalIn the event this information is protected by the Federal Confidentiality of Alcohol and Drug Abuse Patient Records regulations: The Federal rules restrict any use of the information to criminally investigate or prosecute any alcohol or drug abuse patient.[facility] HospitalIn the event this information is protected by the Federal Confidentiality of Alcohol and Drug Abuse Patient Records regulations: The Federal rules restrict any use of the information to criminally investigate or prosecute any alcohol or drug abuse patient.[facility] HospitalIn the event this information is protected by the Federal Confidentiality of Alcohol and Drug Abuse Patient Records regulations: The Federal rules restrict any use of the information to criminally investigate or prosecute any alcohol or drug abuse patient.[facility] HospitalIn the event this information is protected by the Federal Confidentiality of Alcohol and Drug Abuse Patient Records regulations: The Federal rules restrict any use of the information to criminally investigate or prosecute any alcohol or drug abuse patient.[facility] HospitalIn the event this information is protected by the Federal Confidentiality of Alcohol and Drug Abuse Patient Records regulations: The Federal rules restrict any use of the information to criminally investigate or prosecute any alcohol or drug abuse patient.[facility] HospitalIn the event this information is protected by the Federal Confidentiality of Alcohol and Drug Abuse Patient Records regulations: The Federal rules restrict any use of the information to criminally investigate or prosecute any alcohol or drug abuse patient.[facility] HospitalIn the event this information is protected by the Federal Confidentiality of Alcohol and Drug Abuse Patient Records regulations: The Federal rules restrict any use of the information to criminally investigate or prosecute any alcohol or drug abuse patient.[facility] HospitalIn the event this information is protected by the Federal Confidentiality of Alcohol and Drug Abuse Patient Records regulations: The Federal rules restrict any use of the information to criminally investigate or prosecute any alcohol or drug abuse patient.[facility] HospitalIn the event this information is protected by the Federal Confidentiality of Alcohol and Drug Abuse Patient Records regulations: The Federal rules restrict any use of the information to criminally investigate or prosecute any alcohol or drug abuse patient.[facility] HospitalIn the event this information is protected by the Federal Confidentiality of Alcohol and Drug Abuse Patient Records regulations: The Federal rules restrict any use of the information to criminally investigate or prosecute any alcohol or drug abuse patient.[facility] the event this information is protected by the Federal Confidentiality of Alcohol and Drug Abuse Patient Records regulations: The Federal rules restrict any use of the information to criminally investigate or prosecute any alcohol or drug abuse patient.[facility] HospitalIn the event this information is protected by the Federal Confidentiality of Alcohol and Drug Abuse Patient Records regulations: The Federal rules restrict any use of the information to criminally investigate or prosecute any alcohol or drug abuse patient.[facility] HospitalIn the event this information is protected by the Federal Confidentiality of Alcohol and Drug Abuse Patient Records regulations: The Federal rules restrict any use of the information to criminally investigate or prosecute any alcohol or drug abuse patient.[facility] HospitalIn the event this information is protected by the Federal Confidentiality of Alcohol and Drug Abuse Patient Records regulations: The Federal rules restrict any use of the information to criminally investigate or prosecute any alcohol or drug abuse patient.[facility] HospitalIn the event this information is protected by the Federal Confidentiality of Alcohol and Drug Abuse Patient Records regulations: The Federal rules restrict any use of the information to criminally investigate or prosecute any alcohol or drug abuse patient.[facility] HospitalIn the event this information is protected by the Federal Confidentiality of Alcohol and Drug Abuse Patient Records regulations: The Federal rules restrict any use of the information to criminally investigate or prosecute any alcohol or drug abuse patient.[facility] HospitalIn the event this information is protected by the Federal Confidentiality of Alcohol and Drug Abuse Patient Records regulations: The Federal rules restrict any use of the information to criminally investigate or prosecute any alcohol or drug abuse patient.[facility] HospitalIn the event this information is protected by the Federal Confidentiality of Alcohol and Drug Abuse Patient Records regulations: The Federal rules restrict any use of the information to criminally investigate or prosecute any alcohol or drug abuse patient.[facility] HospitalIn the event this information is protected by the Federal Confidentiality of Alcohol and Drug Abuse Patient Records regulations: The Federal rules restrict any use of the information to criminally investigate or prosecute any alcohol or drug abuse patient.[facility] HospitalIn the event this information is protected by the Federal Confidentiality of Alcohol and Drug Abuse Patient Records regulations: The Federal rules restrict any use of the information to criminally investigate or prosecute any alcohol or drug abuse patient.[facility] HospitalIn the event this information is protected by the Federal Confidentiality of Alcohol and Drug Abuse Patient Records regulations: The Federal rules restrict any use of the information to criminally investigate or prosecute any alcohol or drug abuse patient.[facility] HospitalIn the event this information is protected by the Federal Confidentiality of Alcohol and Drug Abuse Patient Records regulations: The Federal rules restrict any use of the information to criminally investigate or prosecute any alcohol or drug abuse patient.[facility] HospitalIn the event this information is protected by the Federal Confidentiality of Alcohol and Drug Abuse Patient Records regulations: The Federal rules restrict any use of the information to criminally investigate or prosecute any alcohol or drug abuse patient.[facility] HospitalIn the event this information is protected by the Federal Confidentiality of Alcohol and Drug Abuse Patient Records regulations: The Federal rules restrict any use of the information to criminally investigate or prosecute any alcohol or drug abuse patient.[facility] HospitalIn the event this information is protected by the Federal Confidentiality of Alcohol and Drug Abuse Patient Records regulations: The Federal rules restrict any use of the information to criminally investigate or prosecute any alcohol or drug abuse patient.[facility] HospitalIn the event this information is protected by the Federal Confidentiality of Alcohol and Drug Abuse Patient Records regulations: The Federal rules restrict any use of the information to criminally investigate or prosecute any alcohol or drug abuse patient.[facility] HospitalIn the event this information is protected by the Federal Confidentiality of Alcohol and Drug Abuse Patient Records regulations: The Federal rules restrict any use of the information to criminally investigate or prosecute any alcohol or drug abuse patient.[facility] HospitalIn the event this information is protected by the Federal Confidentiality of Alcohol and Drug Abuse Patient Records regulations: The Federal rules restrict any use of the information to criminally investigate or prosecute any alcohol or drug abuse patient.[facility] HospitalIn the event this information is protected by the Federal Confidentiality of Alcohol and Drug Abuse Patient Records regulations: The Federal rules restrict any use of the information to criminally investigate or prosecute any alcohol or drug abuse patient.[facility] HospitalIn the event this information is protected by the Federal Confidentiality of Alcohol and Drug Abuse Patient Records regulations: The Federal rules restrict any use of the information to criminally investigate or prosecute any alcohol or drug abuse patient.[facility] HospitalIn the event this information is protected by the Federal Confidentiality of Alcohol and Drug Abuse Patient Records regulations: The Federal rules restrict any use of the information to criminally investigate or prosecute any alcohol or drug abuse patient.[facility] HospitalIn the event this information is protected by the Federal Confidentiality of Alcohol and Drug Abuse Patient Records regulations: The Federal rules restrict any use of the information to criminally investigate or prosecute any alcohol or drug abuse patient.[facility] HospitalIn the event this information is protected by the Federal Confidentiality of Alcohol and Drug Abuse Patient Records regulations: The Federal rules restrict any use of the information to criminally investigate or prosecute any alcohol or drug abuse patient.[facility] HospitalIn the event this information is protected by the Federal Confidentiality of Alcohol and Drug Abuse Patient Records regulations: The Federal rules restrict any use of the information to criminally investigate or prosecute any alcohol or drug abuse patient.[facility] HospitalIn the event this information is protected by the Federal Confidentiality of Alcohol and Drug Abuse Patient Records regulations: The Federal rules restrict any use of the information to criminally investigate or prosecute any alcohol or drug abuse patient.[facility] HospitalIn the event this information is protected by the Federal Confidentiality of Alcohol and Drug Abuse Patient Records regulations: The Federal rules restrict any use of the information to criminally investigate or prosecute any alcohol or drug abuse patient.[facility] HospitalIn the event this information is protected by the Federal Confidentiality of Alcohol and Drug Abuse Patient Records regulations: The Federal rules restrict any use of the information to criminally investigate or prosecute any alcohol or drug abuse patient.[facility] HospitalIn the event this information is protected by the Federal Confidentiality of Alcohol and Drug Abuse Patient Records regulations: The Federal rules restrict any use of the information to criminally investigate or prosecute any alcohol or drug abuse patient.[facility] HospitalIn the event this information is protected by the Federal Confidentiality of Alcohol and Drug Abuse Patient Records regulations: The Federal rules restrict any use of the information to criminally investigate or prosecute any alcohol or drug abuse patient.[facility] HospitalIn the event this information is protected by the Federal Confidentiality of Alcohol and Drug Abuse Patient Records regulations: The Federal rules restrict any use of the information to criminally investigate or prosecute any alcohol or drug abuse patient.[facility] HospitalIn the event this information is protected by the Federal Confidentiality of Alcohol and Drug Abuse Patient Records regulations: The Federal rules restrict any use of the information to criminally investigate or prosecute any alcohol or drug abuse patient.[facility] HospitalIn the event this information is protected by the Federal Confidentiality of Alcohol and Drug Abuse Patient Records regulations: The Federal rules restrict any use of the information to criminally investigate or prosecute any alcohol or drug abuse patient.[facility] HospitalIn the event this information is protected by the Federal Confidentiality of Alcohol and Drug Abuse Patient Records regulations: The Federal rules restrict any use of the information to criminally investigate or prosecute any alcohol or drug abuse patient.[facility] HospitalIn the event this information is protected by the Federal Confidentiality of Alcohol and Drug Abuse Patient Records regulations: The Federal rules restrict any use of the information to criminally investigate or prosecute any alcohol or drug abuse patient.[facility] HospitalIn the event this information is protected by the Federal Confidentiality of Alcohol and Drug Abuse Patient Records regulations: The Federal rules restrict any use of the information to criminally investigate or prosecute any alcohol or drug abuse patient.[facility] HospitalIn the event this information is protected by the Federal Confidentiality of Alcohol and Drug Abuse Patient Records regulations: The Federal rules restrict any use of the information to criminally investigate or prosecute any alcohol or drug abuse patient.[facility] HospitalIn the event this information is protected by the Federal Confidentiality of Alcohol and Drug Abuse Patient Records regulations: The Federal rules restrict any use of the information to criminally investigate or prosecute any alcohol or drug abuse patient.[facility] HospitalIn the event this information is protected by the Federal Confidentiality of Alcohol and Drug Abuse Patient Records regulations: The Federal rules restrict any use of the information to criminally investigate or prosecute any alcohol or drug abuse patient.[facility] HospitalIn the event this information is protected by the Federal Confidentiality of Alcohol and Drug Abuse Patient Records regulations: The Federal rules restrict any use of the information to criminally investigate or prosecute any alcohol or drug abuse patient.[facility] HospitalIn the event this information is protected by the Federal Confidentiality of Alcohol and Drug Abuse Patient Records regulations: The Federal rules restrict any use of the information to criminally investigate or prosecute any alcohol or drug abuse patient.[facility] HospitalIn the event this information is protected by the Federal Confidentiality of Alcohol and Drug Abuse Patient Records regulations: The Federal rules restrict any use of the information to criminally investigate or prosecute any alcohol or drug abuse patient.[facility] HospitalIn the event this information is protected by the Federal Confidentiality of Alcohol and Drug Abuse Patient Records regulations: The Federal rules restrict any use of the information to criminally investigate or prosecute any alcohol or drug abuse patient.[facility] HospitalIn the event this information is protected by the Federal Confidentiality of Alcohol and Drug Abuse Patient Records regulations: The Federal rules restrict any use of the information to criminally investigate or prosecute any alcohol or drug abuse patient.[facility] HospitalIn the event this information is protected by the Federal Confidentiality of Alcohol and Drug Abuse Patient Records regulations: The Federal rules restrict any use of the information to criminally investigate or prosecute any alcohol or drug abuse patient.[facility] HospitalIn the event this information is protected by the Federal Confidentiality of Alcohol and Drug Abuse Patient Records regulations: The Federal rules restrict any use of the information to criminally investigate or prosecute any alcohol or drug abuse patient.[facility] HospitalIn the event this information is protected by the Federal Confidentiality of Alcohol and Drug Abuse Patient Records regulations: The Federal rules restrict any use of the information to criminally investigate or prosecute any alcohol or drug abuse patient.[facility] HospitalIn the event this information is protected by the Federal Confidentiality of Alcohol and Drug Abuse Patient Records regulations: The Federal rules restrict any use of the information to criminally investigate or prosecute any alcohol or drug abuse patient.[facility] HospitalIn the event this information is protected by the Federal Confidentiality of Alcohol and Drug Abuse Patient Records regulations: The Federal rules restrict any use of the information to criminally investigate or prosecute any alcohol or drug abuse patient.[facility] HospitalIn the event this information is protected by the Federal Confidentiality of Alcohol and Drug Abuse Patient Records regulations: The Federal rules restrict any use of the information to criminally investigate or prosecute any alcohol or drug abuse patient.[facility] HospitalIn the event this information is protected by the Federal Confidentiality of Alcohol and Drug Abuse Patient Records regulations: The Federal rules restrict any use of the information to criminally investigate or prosecute any alcohol or drug abuse patient.[facility] the event this information is protected by the Federal Confidentiality of Alcohol and Drug Abuse Patient Records regulations: The Federal rules restrict any use of the information to criminally investigate or prosecute any alcohol or drug abuse patient.[facility] HospitalIn the event this information is protected by the Federal Confidentiality of Alcohol and Drug Abuse Patient Records regulations: The Federal rules restrict any use of the information to criminally investigate or prosecute any alcohol or drug abuse patient.[facility] HospitalIn the event this information is protected by the Federal Confidentiality of Alcohol and Drug Abuse Patient Records regulations: The Federal rules restrict any use of the information to criminally investigate or prosecute any alcohol or drug abuse patient.[facility] HospitalIn the event this information is protected by the Federal Confidentiality of Alcohol and Drug Abuse Patient Records regulations: The Federal rules restrict any use of the information to criminally investigate or prosecute any alcohol or drug abuse patient.[facility] HospitalIn the event this information is protected by the Federal Confidentiality of Alcohol and Drug Abuse Patient Records regulations: The Federal rules restrict any use of the information to criminally investigate or prosecute any alcohol or drug abuse patient.[facility] HospitalIn the event this information is protected by the Federal Confidentiality of Alcohol and Drug Abuse Patient Records regulations: The Federal rules restrict any use of the information to criminally investigate or prosecute any alcohol or drug abuse patient.[facility] HospitalIn the event this information is protected by the Federal Confidentiality of Alcohol and Drug Abuse Patient Records regulations: The Federal rules restrict any use of the information to criminally investigate or prosecute any alcohol or drug abuse patient.[facility] HospitalIn the event this information is protected by the Federal Confidentiality of Alcohol and Drug Abuse Patient Records regulations: The Federal rules restrict any use of the information to criminally investigate or prosecute any alcohol or drug abuse patient.[facility] HospitalIn the event this information is protected by the Federal Confidentiality of Alcohol and Drug Abuse Patient Records regulations: The Federal rules restrict any use of the information to criminally investigate or prosecute any alcohol or drug abuse patient.[facility] HospitalIn the event this information is protected by the Federal Confidentiality of Alcohol and Drug Abuse Patient Records regulations: The Federal rules restrict any use of the information to criminally investigate or prosecute any alcohol or drug abuse patient.[facility] HospitalIn the event this information is protected by the Federal Confidentiality of Alcohol and Drug Abuse Patient Records regulations: The Federal rules restrict any use of the information to criminally investigate or prosecute any alcohol or drug abuse patient.[facility] HospitalIn the event this information is protected by the Federal Confidentiality of Alcohol and Drug Abuse Patient Records regulations: The Federal rules restrict any use of the information to criminally investigate or prosecute any alcohol or drug abuse patient.[facility] HospitalIn the event this information is protected by the Federal Confidentiality of Alcohol and Drug Abuse Patient Records regulations: The Federal rules restrict any use of the information to criminally investigate or prosecute any alcohol or drug abuse patient.[facility] HospitalIn the event this information is protected by the Federal Confidentiality of Alcohol and Drug Abuse Patient Records regulations: The Federal rules restrict any use of the information to criminally investigate or prosecute any alcohol or drug abuse patient.[facility] HospitalIn the event this information is protected by the Federal Confidentiality of Alcohol and Drug Abuse Patient Records regulations: The Federal rules restrict any use of the information to criminally investigate or prosecute any alcohol or drug abuse patient.[facility] HospitalIn the event this information is protected by the Federal Confidentiality of Alcohol and Drug Abuse Patient Records regulations: The Federal rules restrict any use of the information to criminally investigate or prosecute any alcohol or drug abuse patient.[facility] HospitalIn the event this information is protected by the Federal Confidentiality of Alcohol and Drug Abuse Patient Records regulations: The Federal rules restrict any use of the information to criminally investigate or prosecute any alcohol or drug abuse patient.[facility] HospitalIn the event this information is protected by the Federal Confidentiality of Alcohol and Drug Abuse Patient Records regulations: The Federal rules restrict any use of the information to criminally investigate or prosecute any alcohol or drug abuse patient.[facility] HospitalIn the event this information is protected by the Federal Confidentiality of Alcohol and Drug Abuse Patient Records regulations: The Federal rules restrict any use of the information to criminally investigate or prosecute any alcohol or drug abuse patient.[facility] HospitalIn the event this information is protected by the Federal Confidentiality of Alcohol and Drug Abuse Patient Records regulations: The Federal rules restrict any use of the information to criminally investigate or prosecute any alcohol or drug abuse patient.[facility] HospitalIn the event this information is protected by the Federal Confidentiality of Alcohol and Drug Abuse Patient Records regulations: The Federal rules restrict any use of the information to criminally investigate or prosecute any alcohol or drug abuse patient.[facility] HospitalIn the event this information is protected by the Federal Confidentiality of Alcohol and Drug Abuse Patient Records regulations: The Federal rules restrict any use of the information to criminally investigate or prosecute any alcohol or drug abuse patient.[facility] HospitalIn the event this information is protected by the Federal Confidentiality of Alcohol and Drug Abuse Patient Records regulations: The Federal rules restrict any use of the information to criminally investigate or prosecute any alcohol or drug abuse patient.[facility] HospitalIn the event this information is protected by the Federal Confidentiality of Alcohol and Drug Abuse Patient Records regulations: The Federal rules restrict any use of the information to criminally investigate or prosecute any alcohol or drug abuse patient.[facility] HospitalIn the event this information is protected by the Federal Confidentiality of Alcohol and Drug Abuse Patient Records regulations: The Federal rules restrict any use of the information to criminally investigate or prosecute any alcohol or drug abuse patient.[facility] HospitalIn the event this information is protected by the Federal Confidentiality of Alcohol and Drug Abuse Patient Records regulations: The Federal rules restrict any use of the information to criminally investigate or prosecute any alcohol or drug abuse patient.[facility] HospitalIn the event this information is protected by the Federal Confidentiality of Alcohol and Drug Abuse Patient Records regulations: The Federal rules restrict any use of the information to criminally investigate or prosecute any alcohol or drug abuse patient.[facility] HospitalIn the event this information is protected by the Federal Confidentiality of Alcohol and Drug Abuse Patient Records regulations: The Federal rules restrict any use of the information to criminally investigate or prosecute any alcohol or drug abuse patient.[facility] HospitalIn the event this information is protected by the Federal Confidentiality of Alcohol and Drug Abuse Patient Records regulations: The Federal rules restrict any use of the information to criminally investigate or prosecute any alcohol or drug abuse patient.[facility] HospitalIn the event this information is protected by the Federal Confidentiality of Alcohol and Drug Abuse Patient Records regulations: The Federal rules restrict any use of the information to criminally investigate or prosecute any alcohol or drug abuse patient.[facility] HospitalIn the event this information is protected by the Federal Confidentiality of Alcohol and Drug Abuse Patient Records regulations: The Federal rules restrict any use of the information to criminally investigate or prosecute any alcohol or drug abuse patient.[facility] HospitalIn the event this information is protected by the Federal Confidentiality of Alcohol and Drug Abuse Patient Records regulations: The Federal rules restrict any use of the information to criminally investigate or prosecute any alcohol or drug abuse patient.[facility] HospitalIn the event this information is protected by the Federal Confidentiality of Alcohol and Drug Abuse Patient Records regulations: The Federal rules restrict any use of the information to criminally investigate or prosecute any alcohol or drug abuse patient.[facility] HospitalIn the event this information is protected by the Federal Confidentiality of Alcohol and Drug Abuse Patient Records regulations: The Federal rules restrict any use of the information to criminally investigate or prosecute any alcohol or drug abuse patient.[facility] HospitalIn the event this information is protected by the Federal Confidentiality of Alcohol and Drug Abuse Patient Records regulations: The Federal rules restrict any use of the information to criminally investigate or prosecute any alcohol or drug abuse patient.[facility] Reason for Visit (unrecogniz ed section and content) Reason Comments Diabetes Reason Comments Forms Dexcom G6 applicatio n Reason Comments Medication Problem Reason Comments Patient Request motorized scooter Reason Comments Hand Pain RIGHT hand with swel ling x 1 day Reason Comments Follow Up labs (ESR, CRP), XR Reason Comments Insurance Authorization CGM Reason Comments Dexcom - [facility] Reason Comments Medication Request Reason Comments Insurance Authorization Reason Onset Date Comments Refill Request 08/03/2021 Reason Comments Forms Open Air Mobility fo r power chair Reason Comments Forms [employer] powered mobi lity form Reason Comments New Pain Specialty Diagnoses / Procedures Referred By Contac t Referred To Contact Orthopedics Diagnoses Bilateral wrist pain Chronic pain of left wrist Acute pain of right wrist Procedures CONSULT TO ORTHOPAEDICS OFFICE/OUTPATIENT NEW HIGH MDM 60-74 MINUTES Josse Lance, DEVAUGHN.IT SECURITY 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 [address] [place] [address] Referral ID Status Reason Start Date Expiration Date V isits Requested Visits Authorized [id number] Closed PCP Requested Referral 07/03/2021 07/03/2022 1 1 Reason Comments forms faxing back to office Reason Comments Same Day Appointment right lower leg/palma t swollen and painful Reason Comments Recheck Follow up leg Reason Comments Recheck Reason Comments Results Appointment Reason Onset Date Comments community monitoring outreach 09/11/2021 en rollment Reason Comments High Blood Sugar Reason Comments Refill Request Reason Comments Patient Question Dexcom Reason Comments Recheck MRI follow up Reason Onset Date Comments community monitoring outreach 10/09/2021 Te lephonic questionnaire Reason Comments Ear Pain Rt ear pain started yesterday , then also yesterday started gets sick to stomach and pain, then goes to bathroom there is blood, on underware and tissue Reason Comments Radiology US Specialty Diagnoses / Procedures Referred By Contac t Referred To Contact US IMAGING Diagnoses Abnormal vaginal bleeding Procedures US FEMALE PELVIS TRANSABD LTD US PELVIC NONOBSTETRIC IMAGE DCMTN LIMITED/F/U Jaci Lucero APRN.PROPERTY MANAGEMENT COORDINATOR [address] [place] [address] Us Imaging Referral ID Status Reason Start Date Expiration Date V isits Requested Visits Authorized [id number] Closed Auto-Generate d Referral 10/20/2021 11/19/2022 1 1 Reason Onset Date Comments community monitoring outreach 11/03/2021 Te lephonic questionnaire Reason Onset Date Comments community monitoring outreach 11/07/2021 Te lephonic questionnaire Reason Comments Forms Reason Onset Date Comments community monitoring outreach 12/01/2021 Te lephonic questionnaire Reason Onset Date Comments community monitoring outreach 12/04/2021 Te lephonic questionnaire Reason Comments Recheck Hosp follow up hyper kalemia Reason Onset Date Comments Refill Request 12/11/2021 Reason Comments Results Reason Onset Date Comments community monitoring outreach 12/29/2021 Te lephonic questionnaire Reason Onset Date Comments community monitoring outreach 01/01/2022 Te lephonic questionnaire Reason Comments Recheck 3 month follow up Reason Onset Date Comments Refill Request 01/21/2022 Reason Onset Date Comments community monitoring outreach 01/26/2022 Te lephonic questionnaire Reason Comments Recheck Follow up Reason Onset Date Comments Refill Request 02/01/2022 Reason Onset Date Comments chronic itching 02/05/2022 OTC not helping Reason Comments Same Day Appointment possible shingles x 3 weeks Reason Comments Patient Update Reason Onset Date Comments community monitoring outreach 02/22/2022 Te lephonic questionnaire Reason Onset Date Comments Refill Request 03/18/2022 Reason Onset Date Comments Refill Request 04/19/2022 Reason Onset Date Comments community monitoring outreach 04/19/2022 Te lephonic questionnaire Reason Onset Date Comments community monitoring outreach 04/20/2022 Te lephonic questionnaire Reason Comments Referral - Kidney Txp Reason Comments Discussion Reason Comments Recheck 3 month follow up Reason Comments Diarrhea Reason Onset Date Comments Refill Request 05/16/2022 Reason Comments Follow Up Reason Comments Referral - Kidney Txp Reason Comments Dexcom G 7 Reason Onset Date Comments Refill Request 06/12/2022 Reason Onset Date Comments community monitoring outreach 06/14/2022 CD M outreach Reason Comments Patient Question Reason Comments Patient Education Reason Comments Medication Problem Tramadol - itching Reason Onset Date Comments [facility] 08/28/2022 Telephonic outre ach Reason Onset Date Comments [facility] 08/29/2022 Telephonic outre ach Reason Onset Date Comments Opened In Error 08/29/2022 Reason Comments Patient Question Follow Up Returned patients ca ll. She had a question about seeing two Cardiologists. I let her know that she should see the transplant commissary clerk here at [facility] which she is scheduled for in January. She also questioned whether she was able to have vinager or not. I let her know that I did not know any contraindications to vinegar.Per nutrition Patient does admit so high sodium foods she enjoys. Per nutrition: Said she would not be able to give up her pickled eggs No additional questions Reason Comments Appointment Reschedule Primary C are Cancellation Reason Onset Date Comments [facility] 10/26/2022 Routine outreach Reason Comments Rash Around left side of body, itching Reason Comments Left Hip Pain Fall Reason Onset Date Comments Refill Request 11/20/2022 Reason Onset Date Comments [facility] 11/22/2022 Routine outreach Reason Comments Follow Up fell 3 week ago and 1 week ago crashed electric wheelchair Reason Onset Date Comments [facility] 12/20/2022 Routine outreach Reason Comments Letter Reason Comments Recheck ER follow up, abdomi nal pain Reason Comments ED Follow-up Reason Comments New Patient Hep C Protocol, Pre Kidney TXP Specialty Diagnoses / Procedures Referred By Contact Referred To Contact Gastroenterology / TRANSPLANT Diagnoses Pre-transplant evaluation for end stage renal disease Awaiting organ transplant Procedures CONSULT TO GASTROENTEROLOGY OFFICE/OUTPATIENT [facility] 60-74 MINUTES Kel Victoria MD [address] [place] [address] [facility] [address] [address] Referral ID Status Reason Start Date Expiration Date V isits Requested Visits Authorized [id number] Closed PCP Requested Referral Patient Cleared - INN Insurance Found 04/30/2022 04/29/2023 1 1 Specialty Diagnoses / Procedures Referred By Contac t Referred To Contact Cardiology / TRANSPLANT Diagnoses Pre-transplant evaluation for end stage renal disease Pre-operative cardiovascular examination History of heart artery stent Procedures CONSULT TO CARDIOLOGY OFFICE/OUTPATIENT NEW HIGH MDM 60-74 MINUTES Kel Victoria MD [address] [place] [address] [facility] [address] [place] [phone] Referral ID Status Reason Start Date Expiration Date V isits Requested Visits Authorized [id number] Closed PCP Requested Referral Patient Cleared - INN Insurance Found 10/03/2022 09/26/2023 1 1 Reason Comments Cardiac Clearance Reason Onset Date Comments Refill Request 01/14/2023 Reason Onset Date Comments Refill Request 01/12/2023 Refill Request 01/14/2023 Reason Onset Date Comments CDM 01/17/2023 Routine outreach Reason Onset Date Comments Refill Request 01/22/2023 PATIENT OUT OF M EDICATION Reason Comments Received Outside Medical Records Care Teams (unrecognized sec tion and content) Data Review Specialist Relationship Specialty Start Date End Date Jame Hunt MD [address] [place] [address] PCP - General Internal Medicine 08/15/16 Kim La [address] [address] Pharmacist Pharmacy 07/17/18 Vaughn Reeves, NIEVES [facility] [address] [place] [address] Registered Nurse Transplant Center 04/13/19 Ricki Dc MD [address] [address] Printing Plate Setter Nephrology 01/11/20 Vicente Vargas MD [address] [place] [address] Cardiology 04/05/21 Data Review Specialist Relationship Specialty Start Date End Date Jame Hunt MD [address] [facility] [place] [address] PCP - General Internal Medicine 08/15/16 Kim La, [facility] [address] [place] [address] Pharmacist Pharmacy 07/17/18 Vaughn Reeves RN [facility] [address] [facility] [place] [address] Registered Nurse Transplant Center 04/13/19 Ricki Dc MD [address] [place] [address] [place] [address] Printing Plate Setter Nephrology 01/11/20 Vicente Vargas MD [address] [place] [address] Cardiology 04/05/21 Data Review Specialist Relationship Specialty Start Date End Date Jame Hunt MD [address] [facility] [place] [address] PCP - General Internal Medicine 08/15/16 Kim La, [facility] [address] [place] [address] Pharmacist Pharmacy 07/17/18 Vaughn Reeves RN [facility] [address] [place] [address] Registered Nurse Transplant Center 04/13/19 Ricki Dc MD [address] [place] [facility] [place] [address] Printing Plate Setter Nephrology 01/11/20 Vicente Vargas MD [address] [place] [address] Cardiology 04/05/21 Data Review Specialist Relationship Specialty Start Date End Date Jame Hunt MD [address] [place] [address] PCP - General Internal Medicine 08/15/16 Kim La, [facility] [address] [place] [address] Pharmacist Pharmacy 07/17/18 Vaughn Reeves RN [facility] [address] [place] [address] Registered Nurse Transplant Center 04/13/19 Ricki Dc MD [address] [place] [address] Printing Plate Setter Nephrology 01/11/20 Vicente Vargas MD [address] [place] [address] Cardiology 04/05/21 Data Review Specialist Relationship Specialty Start Date End Date Jame Hunt MD [address] [place] [address] PCP - General Internal Medicine 08/15/16 Saver[place] Kim, [facility] [address] [place] [address] Pharmacist Pharmacy 07/17/18 Vaughn Reeves, NIEVES [facility] [address] [place] [address] Registered Nurse Transplant Center 04/13/19 Ricki Dc MD [address] [place] [address] Printing Plate Setter Nephrology 01/11/20 Vicente Vargas MD [address] [place] [address] Cardiology 04/05/21 Data Review Specialist Relationship Specialty Start Date End Date Jame Hunt MD [address] [place] [address] PCP - General Internal Medicine 08/15/[facility] [address] [place] [address] Pharmacist Pharmacy 07/17/18 Vaughn Reeves RN [facility] [address] [place] [address] Registered Nurse Transplant Center 04/13/19 Ricki Dc MD [address] [place] [place] [address] Printing Plate Setter Nephrology 01/11/20 Vicente Vargas MD [address] [place] [address] Cardiology 04/05/21 Data Review Specialist Relationship Specialty Start Date End Date Jame Hunt MD [address] [place] [address] PCP - General Internal Medicine 08/15/16 Kim La, [facility] [address] [place] [address] Pharmacist Pharmacy 07/17/18 Vaughn Reeves, NIEVES [facility] [address] [place] [address] Registered Nurse Transplant Center 04/13/19 Ricki Dc MD [address] [place] [place] [address] Printing Plate Setter Nephrology 01/11/20 Vicente Vargas MD [address] [place] [address] Cardiology 04/05/21 Data Review Specialist Relationship Specialty Start Date End Date Jame Hunt MD [address] [facility] [place] [address] PCP - General Internal Medicine 08/15/16 Kim La, [facility] [address] [place] [address] Pharmacist Pharmacy 07/17/18 Vaughn Reeves RN [facility] [address] [place] [address] Registered Nurse Transplant Center 04/13/19 Ricki Dc MD [address] [place] [facility] [place] [address] Printing Plate Setter Nephrology 01/11/20 Vicente Vargas MD [address] [address] [place] [address] Cardiology 04/05/21 Data Review Specialist Relationship Specialty Start Date End Date Jame Hunt MD [address] [place] [address] PCP - General Internal Medicine 08/15/16 Kim La, [facility] [address] [place] [address] Pharmacist Pharmacy 07/17/18 Vaughn Reeves RN [facility] [address] [place] [address] Registered Nurse Transplant Center 04/13/19 Ricki Dc MD [address] [place] [address] Printing Plate Setter Nephrology 01/11/20 Vicente Vargas MD [address] [place] [address] Cardiology 04/05/21 Data Review Specialist Relationship Specialty Start Date End Date Jame Hunt MD [address] [place] [address] PCP - General Internal Medicine 08/15/16 Kim La, [facility] [address] [place] [address] Pharmacist Pharmacy 07/17/18 Vaughn Reeves RN [facility] [address] [place] [address] Registered Nurse Transplant Center 04/13/19 Ricki Dc MD [address] [place] [address] Printing Plate Setter Nephrology 01/11/20 Vicente Vargas MD [address] [place] [address] Cardiology 04/05/21 Data Review Specialist Relationship Specialty Start Date End Date Jame Hunt MD [address] [facility] [place] [address] PCP - General Internal Medicine 08/15/16 Kim La, [facility] [address] [place] [address] Pharmacist Pharmacy 07/17/18 Vaughn Reeves RN [facility] [address] [place] [address] Registered Nurse Transplant Center 04/13/19 Ricki Dc MD [address] [place] [address] Printing Plate Setter Nephrology 01/11/20 Vicente Vargas MD [address] [place] [address] Cardiology 04/05/21 Data Review Specialist Relationship Specialty Start Date End Date Jame Hunt MD [address] [place] [address] PCP - General Internal Medicine 08/15/16 [facility] [address] [place] [address] Pharmacist Pharmacy 07/17/18 Vaughn Reeves RN [facility] [address] [place] [address] Registered Nurse Transplant Center 04/13/19 Ricki Dc MD [address] [place] [address] Printing Plate Setter Nephrology 01/11/20 Vicente Vargas MD [address] [place] [address] Cardiology 04/05/21 Data Review Specialist Relationship Specialty Start Date End Date Jame Hunt MD [address] [place] [address] PCP - General Internal Medicine 08/15/16 [place] [facility] [address] [place] [address] Pharmacist Pharmacy 07/17/18 Vaughn Reeves RN [facility] [address] [place] [address] Registered Nurse Transplant Center 04/13/19 Ricki Dc MD [address] [place] [address] Printing Plate Setter Nephrology 01/11/20 Vicente Vargas MD [address] [place] [address] Cardiology 04/05/21 Data Review Specialist Relationship Specialty Start Date End Date Jame Hunt MD [address] [place] [address] PCP - General Internal Medicine 08/15/16 Kim La, [facility] [address] [place] [address] Pharmacist Pharmacy 07/17/18 Vaughn Reeves RN [facility] [address] [place] [address] Registered Nurse Transplant Center 04/13/19 Ricki Dc MD [address] [place] [address] Printing Plate Setter Nephrology 01/11/20 Vicente Vargas MD [address] [place] [address] Cardiology 04/05/21 Data Review Specialist Relationship Specialty Start Date End Date Jame Hunt MD [address] [place] [address] PCP - General Internal Medicine 08/15/16 Kim La, [facility] [address] [place] [address] Pharmacist Pharmacy 07/17/18 Vaughn Reeves RN [facility] [address] [place] [address] Registered Nurse Transplant Center 04/13/19 Ricki Dc MD [address] [place] [address] Printing Plate Setter Nephrology 01/11/20 Vicente Vargas MD [address] [place] [address] Cardiology 04/05/21 Data Review Specialist Relationship Specialty Start Date End Date Jame Hunt MD [address] [facility] [place] [address] PCP - General Internal Medicine 08/15/16 AbhinavKim harris, [facility] [address] [place] [address] Pharmacist Pharmacy 07/17/18 Vaughn Reeves RN [facility] [address] [facility] [place] [address] Registered Nurse Transplant Center 04/13/19 Ricki Dc MD [address] [place] [address] Printing Plate Setter Nephrology 01/11/20 Vicente Vargas MD [address] [place] [address] Cardiology 04/05/21 Data Review Specialist Relationship Specialty Start Date End Date Jame Hunt MD [address] [place] [address] PCP - General Internal Medicine 08/15/16 [facility] [address] [place] [address] Pharmacist Pharmacy 07/17/18 Vaughn Reeves RN [facility] [address] [place] [address] Registered Nurse Transplant Center 04/13/19 Ricki Dc MD [address] [place] [address] Printing Plate Setter Nephrology 01/11/20 Vicente Vargas MD [address] [place] [address] Cardiology 04/05/21 Data Review Specialist Relationship Specialty Start Date End Date Jame Hunt MD [address] [place] [address] PCP - General Internal Medicine 08/15/16 [facility] [address] [place] [address] Pharmacist Pharmacy 07/17/18 Vaughn Reeves RN [facility] [address] [place] [address] Registered Nurse Transplant Center 04/13/19 Ricki Dc MD [address] [place] [address] Printing Plate Setter Nephrology 01/11/20 Vicente Vargas MD [address] [place] [address] Cardiology 04/05/21 Roxie Palmer, [facility] [address] [place] [address] Business Systems Advisor 09/11/21 Data Review Specialist Relationship Specialty Start Date End Date Jame Hunt MD [address] [place] [address] PCP - General Internal Medicine 08/15/16 [facility] [address] [place] [address] Pharmacist Pharmacy 07/17/18 Vaughn Reeves, NIEVES [facility] [address] [place] [address] Registered Nurse Transplant Center 04/13/19 Ricki Dc MD [address] [place] [address] Printing Plate Setter Nephrology 01/11/20 Vicente Vargas MD [address] [place] [address] Cardiology 04/05/21 Roxie Palmer, [facility] [address] [place] [address] Business Systems Advisor 09/11/21 Data Review Specialist Relationship Specialty Start Date End Date Jame Hunt MD [address] [facility] [place] [address] PCP - General Internal Medicine 08/15/16 [facility] [address] [place] [address] Pharmacist Pharmacy 07/17/18 Vaughn Reeves RN [facility] [address] [place], [place] [address] [address] Registered Nurse Transplant Center 04/13/19 Ricki Dc MD [address] [place] [address] Printing Plate Setter Nephrology 01/11/20 Vicente Vargas MD [address] [place] [address] Cardiology 04/05/21 Roxie Palmer, NIEVES [address] [place] [address] Business Systems Advisor 09/11/21 Data Review Specialist Relationship Specialty Start Date End Date Jame Hunt MD [address] [place] [address] PCP - General Internal Medicine 08/15/16 [facility] [address] [place] [address] Pharmacist Pharmacy 07/17/18 Vaughn Reeves, NIEVES [facility] [address] [place] [address] Registered Nurse Transplant Center 04/13/19 Ricki Dc MD [address] [address] [place] [address] Printing Plate Setter Nephrology 01/11/20 Vicente Vargas MD [address] [place] [address] Cardiology 04/05/21 Roxie Plamer, NIEVES [address] [place] [address] Business Systems Advisor 09/11/21 Data Review Specialist Relationship Specialty Start Date End Date Jame Hunt MD [address] [place] [address] PCP - General Internal Medicine 08/15/16 [facility] [address] [place] [address] Pharmacist Pharmacy 07/17/18 Vaughn Reeves RN [facility] [address] [place] [address] Registered Nurse Transplant Center 04/13/19 Ricki Dc MD [address] [address] [place] [address] Printing Plate Setter Nephrology 01/11/20 Vicente Vargas MD [address] [place] [address] Cardiology 04/05/21 Roxie Palmer, NIEVES [address] [place] [address] Business Systems Advisor 09/11/21 Data Review Specialist Relationship Specialty Start Date End Date Jame Hunt MD [address] [place] [address] PCP - General Internal Medicine 08/15/16 [facility] [address] [place] [address] Pharmacist Pharmacy 07/17/18 Vaughn Reeves, NIEVES [facility] [address] [place] [address] Registered Nurse Transplant Center 04/13/19 Ricki Dc MD [address] [address] Printing Plate Setter Nephrology 01/11/20 Vicente Vargas MD [address] [place] [address] Cardiology 04/05/21 Roxie Palmer, NIEVES [address] [place] [address] Business Systems Advisor 09/11/21 Data Review Specialist Relationship Specialty Start Date End Date Jame Hunt MD [address] [place] [address] PCP - General Internal Medicine 08/15/16 [facility] [address] [place] [address] Pharmacist Pharmacy 07/17/18 Vaughn Reeves RN [facility] [address] [place] [address] Registered Nurse Transplant Center 04/13/19 Ricki Dc MD [address] [address] [place] [address] Printing Plate Setter Nephrology 01/11/20 Vicente Vargas MD [address] [place] [address] Cardiology 04/05/21 Roxie Palmer, NIEVES [address] [place] [address] Business Systems Advisor 09/11/21 Data Review Specialist Relationship Specialty Start Date End Date Jame Hunt MD [address] [place] [address] PCP - General Internal Medicine 08/15/16 Kim La, [facility] [address] [place] [address] Pharmacist Pharmacy 07/17/18 Vaughn Reeves, NIEVES [facility] [address] [place] [address] Registered Nurse Transplant Center 04/13/19 Ricki Dc MD [address] [place] [address] Printing Plate Setter Nephrology 01/11/20 Vicente Vargas MD [address] [place] [address] Cardiology 04/05/21 Roxie Palmer RN [address] [place] [address] Business Systems Advisor 09/11/21 Data Review Specialist Relationship Specialty Start Date End Date Jame Hunt MD [address] [place] [address] PCP - General Internal Medicine 08/15/16 Kim La, [facility] [address] [place] [address] Pharmacist Pharmacy 07/17/18 Vaughn Reeves RN [facility] [address] [place] [address] Registered Nurse Transplant Center 04/13/19 Ricki Dc MD [address] [place] [address] Printing Plate Setter Nephrology 01/11/20 Vicente Vargas MD [address] [place] [address] Cardiology 04/05/21 Roxie Palmer, NIEVES [address] [place] [address] Business Systems Advisor 09/11/21 Data Review Specialist Relationship Specialty Start Date End Date Jame Hunt MD [address] [place] [address] PCP - General Internal Medicine 08/15/16 AbhinavKim harris, [facility] [address] [place] [address] Pharmacist Pharmacy 07/17/18 Vaughn Reeves RN [facility] [address] [place] [address] Registered Nurse Transplant Center 04/13/19 Ricki Dc MD [address] [place] [address] [place] [address] Printing Plate Setter Nephrology 01/11/20 Vicente Vargas MD [address] [place] [address] Cardiology 04/05/21 Roxie Palmer RN [address] [place] [address] Business Systems Advisor 09/11/21 Data Review Specialist Relationship Specialty Start Date End Date Jame Hunt MD [address] [place] [address] PCP - General Internal Medicine 08/15/16 Kim La, [facility] [address] [place] [address] Pharmacist Pharmacy 07/17/18 Vaughn Reeves RN [facility] [address] [place] [address] Registered Nurse Transplant Center 04/13/19 Ricki Dc MD [address] [place] [address] [place] [address] Printing Plate Setter Nephrology 01/11/20 Vicente Vargas MD [address] [place] [address] Cardiology 04/05/21 Roxie Palmer, NIEVES [address] [place] [address] Business Systems Advisor 09/11/21 Data Review Specialist Relationship Specialty Start Date End Date Jame Hunt MD [address] [place] [address] PCP - General Internal Medicine 08/15/16 Saver[place], [facility] [address] [place] [address] Pharmacist Pharmacy 07/17/18 Vaughn Reeves, NIEVES [facility] [address] [place] [address] Registered Nurse Transplant Center 04/13/19 Ricki Dc MD [address] [place] [address] [place] [address] Printing Plate Setter Nephrology 01/11/20 Vicente Vargas MD [address] [place] [address] Cardiology 04/05/21 Roxie Palmer, NIEVES [address] [place] [address] Business Systems Advisor 09/11/21 Data Review Specialist Relationship Specialty Start Date End Date Jame Hunt MD [address] [place] [address] PCP - General Internal Medicine 08/15/16 [place], [facility] [address] [place] [address] Pharmacist Pharmacy 07/17/18 Vaughn Reevse RN [facility] [address] [place] [address] Registered Nurse Transplant Center 04/13/19 Ricki Dc MD [address] [place] [address] [place] [address] Printing Plate Setter Nephrology 01/11/20 Vicente Vargas MD [address] [place] [address] Cardiology 04/05/21 Roxie Palmer, NIEVES [address] [place] [address] Business Systems Advisor 09/11/21 Data Review Specialist Relationship Specialty Start Date End Date Jame Hunt MD [address] [place] [address] PCP - General Internal Medicine 08/15/16 Kim aL, [facility] [address] [place] [address] Pharmacist Pharmacy 07/17/18 Vaughn Reeves, NIEVES [facility] [address] [place] [address] Registered Nurse Transplant Center 04/13/19 Ricki Dc MD [address] [place] [address] [place] [address] Printing Plate Setter Nephrology 01/11/20 Vicente Vargas MD [address] [place] [address] Cardiology 04/05/21 Roxie Palmer RN [address] [place] [address] Business Systems Advisor 09/11/21 Data Review Specialist Relationship Specialty Start Date End Date Jame Hunt MD [address] [place] [address] PCP - General Internal Medicine 08/15/16 Kim La, [facility] [address] [place] [address] Pharmacist Pharmacy 07/17/18 Vaughn Reeves RN [facility] [address] [place] [address] Registered Nurse Transplant Center 04/13/19 Ricki Dc MD [address] [place] [address] [place] [address] Printing Plate Setter Nephrology 01/11/20 Vicente Vargas MD [address] [place] [address] Cardiology 04/05/21 Roxie Palmer RN [address] [place] [address] Business Systems Advisor 09/11/21 Data Review Specialist Relationship Specialty Start Date End Date Jame Hunt MD [address] [place] [address] PCP - General Internal Medicine 08/15/16 Kim La, [facility] [address] [place] [address] Pharmacist Pharmacy 07/17/18 Vaughn Reeves RN [facility] [address] [place] [address] Registered Nurse Transplant Center 04/13/19 Ricki Dc MD [address] [place] [address] [place] [address] Printing Plate Setter Nephrology 01/11/20 Vicente Vargas MD [address] [place] [address] Cardiology 04/05/21 Roxie Palmer RN [address] [place] [address] Business Systems Advisor 09/11/21 Data Review Specialist Relationship Specialty Start Date End Date Jame Hunt MD [address] [place] [address] PCP - General Internal Medicine 08/15/16 Kim La, [facility] [address] [place] [address] Pharmacist Pharmacy 07/17/18 Vaughn Reeves RN [facility] [address] [place] [address] Registered Nurse Transplant Center 04/13/19 Ricki Dc MD [address] [place] [address] [place] [address] Printing Plate Setter Nephrology 01/11/20 Vicente Vargas MD [address] [place] [address] Cardiology 04/05/21 Roxie Palmer RN [address] [place] [address] Business Systems Advisor 09/11/21 Data Review Specialist Relationship Specialty Start Date End Date Jame Hunt MD [address] [place] [address] PCP - General Internal Medicine 08/15/16 Kim La, [facility] [address] [place] [address] Pharmacist Pharmacy 07/17/18 Vaughn Reeves RN [facility] [address] [place] [address] Registered Nurse Transplant Center 04/13/19 Ricki Dc MD [address] [place] [address] [place] [address] Printing Plate Setter Nephrology 01/11/20 Vicente Vargas MD [address] [place] [address] Cardiology 04/05/21 Roxie Palmer RN [address] [place] [address] Business Systems Advisor 09/11/21 Data Review Specialist Relationship Specialty Start Date End Date Jame Hunt MD [address] [place] [address] PCP - General Internal Medicine 08/15/16 Kim La, [facility] [address] [place] [address] Pharmacist Pharmacy 07/17/18 Vaughn Reeves RN [facility] [address] [place] [address] Registered Nurse Transplant Center 04/13/19 Ricki Dc MD [address] [place] [address], [place] [address] Printing Plate Setter Nephrology 01/11/20 Vicente Vargas MD [address] [place] [address] Cardiology 04/05/21 Roxie Palmer RN [address] [place], [place] 226[address]31 Business Systems Advisor 09/11/21 Data Review Specialist Relationship Specialty Start Date End Date Jame Hunt MD [address] [facility] [place] [address] PCP - General Internal Medicine 08/15/16 Kim La, h [address] [place] [address] Pharmacist Pharmacy 07/17/18 Vaughn Reeves RN [facility] [address] [facility] [place] [address] Registered Nurse Transplant Center 04/13/19 Ricki Dc MD [address] [place] [address] Printing Plate Setter Nephrology 01/11/20 Vicente Vargas MD [address] [place] [address] Cardiology 04/05/21 Roxie Palmer RN [address] [place], [place] 6792131 Business Systems Advisor 09/11/21 Data Review Specialist Relationship Specialty Start Date End Date Jame Hunt MD [address] [facility] [place] [address] PCP - General Internal Medicine 08/15/16 Kim La, [facility] [address] [place] [address] Pharmacist Pharmacy 07/17/18 Vaughn Reeves RN [facility] [address] [place] [address] Registered Nurse Transplant Center 04/13/19 Ricki Dc MD [address] [place] [address] Printing Plate Setter Nephrology 01/11/20 Vicente Vargas MD [address] [place] [address] Cardiology 04/05/21 Roxie Palmer RN [address] [place], [place] [address]380031 Business Systems Advisor 09/11/21 Data Review Specialist Relationship Specialty Start Date End Date Jame Hunt MD [address] [place] [address] PCP - General Internal Medicine 08/15/16 Kim La, [facility] [address] [place] [address] Pharmacist Pharmacy 07/17/18 Vaughn Reeves, NIEVES [facility] [address] [place] [address] Registered Nurse Transplant Center 04/13/19 Ricki Dc MD [address] [place] [address] Printing Plate Setter Nephrology 01/11/20 Vicente Vargas MD [address] [place] [address] Cardiology 04/05/21 Roxie Palmer, NIEVES [address] [place], [place] 523[address]31 Business Systems Advisor 09/11/21 Data Review Specialist Relationship Specialty Start Date End Date Jame Hunt MD [address] [place] [address] PCP - General Internal Medicine 08/15/16 Kim La, [facility] [address] [place] [address] Pharmacist Pharmacy 07/17/18 Vaughn Reeves RN [facility] [address] [place] [address] Registered Nurse Transplant Center 04/13/19 Ricki Dc MD [address] [place] [address] Printing Plate Setter Nephrology 01/11/20 Vicente Vargas MD [address] [place] [address] Cardiology 04/05/21 Roxie Palmer RN [address] [place], [place] [phone] Business Systems Advisor 09/11/21 Data Review Specialist Relationship Specialty Start Date End Date Jame Hunt MD [address] [place] [address] PCP - General Internal Medicine 08/15/16 Kim La, [facility] [address] [place] [address] Pharmacist Pharmacy 07/17/18 Vaughn Reeves, RN [facility] [address] [place] [address] Registered Nurse Transplant Center 04/13/19 Ricki Dc MD [address] [place] [address] [place] [address] Printing Plate Setter Nephrology 01/11/20 Vicente Vargas MD [address] [place] [address] Cardiology 04/05/21 Roxie Palmer, NIEVES [address] [place], [place] [phone] Business Systems Advisor 09/11/21 Data Review Specialist Relationship Specialty Start Date End Date Jame Hunt MD [address] [place] [address] PCP - General Internal Medicine 08/15/16 Kim La, [facility] [address] [place] [address] Pharmacist Pharmacy 07/17/18 Vaughn Reeves, RN [facility] [address] [place] [address] Registered Nurse Transplant Center 04/13/19 Ricki Dc MD [address] [place] [address] [place] [address] Printing Plate Setter Nephrology 01/11/20 Vicente Vargas MD [address] [place] [address] Cardiology 04/05/21 Roxie Palmer RN [address] [place], [place] [phone] Business Systems Advisor 09/11/21 Data Review Specialist Relationship Specialty Start Date End Date Jame Hunt MD [address] [place] [address] PCP - General Internal Medicine 08/15/16 Kim La, [facility] [address] [place] [address] Pharmacist Pharmacy 07/17/18 Vaughn Reeves, NIEVES [facility] [address] [place] [address] Registered Nurse Transplant Center 04/13/19 Ricki Dc MD [address] [place] [address] [place] [address] Printing Plate Setter Nephrology 01/11/20 Vicente Vargas MD [address] [place] [address] Cardiology 04/05/21 Roxie Palmer, NIEVES [address] [place], [place] [phone] Business Systems Advisor 09/11/21 Data Review Specialist Relationship Specialty Start Date End Date Jame Hunt MD [address] [place] [address] PCP - General Internal Medicine 08/15/16 Kim La, [facility] [address] [place] [address] Pharmacist Pharmacy 07/17/18 Vaughn Reeves, NIEVES [facility] [address] [place] [address] Registered Nurse Transplant Center 04/13/19 Ricki Dc MD [address] [place] [address] [place] [address] Printing Plate Setter Nephrology 01/11/20 Vicente Vargas MD [address] [place] [address] Cardiology 04/05/21 Roxie Palmer, NIEVES [address] [place], [place] [phone] Business Systems Advisor 09/11/21 Data Review Specialist Relationship Specialty Start Date End Date Jame Hunt MD [address] [place] [address] PCP - General Internal Medicine 08/15/16 [place], Kim, [facility] [address] [place] [address] Pharmacist Pharmacy 07/17/18 Vaughn Reeves, NIEVES [facility] [address] [place] [address] Registered Nurse Transplant Center 04/13/19 Ricki Dc MD [address] [place] [address] [place] [address] Printing Plate Setter Nephrology 01/11/20 Vicente Vargas MD [address] [place] [address] Cardiology 04/05/21 Roxie Palmer, NIEVES [address] [place], [place] [phone] Business Systems Advisor 09/11/21 Data Review Specialist Relationship Specialty Start Date End Date Jame Hunt MD [address] [place] [address] PCP - General Internal Medicine 08/15/16 AbhinavKim harris, [facility] [address] [place] [address] Pharmacist Pharmacy 07/17/18 Vaughn Reeves RN [facility] [address] [place] [address] Registered Nurse Transplant Center 04/13/19 Ricki Dc MD [address] [place] [address] [place] [address] Printing Plate Setter Nephrology 01/11/20 Vicente Vargas MD [address] [place] [address] Cardiology 04/05/21 Roxie Palmer, NIEVES [address] [place], [place] [phone] Business Systems Advisor 09/11/21 Data Review Specialist Relationship Specialty Start Date End Date Jame Hunt MD [address] [place] [address] PCP - General Internal Medicine 08/15/16 Kim La, [facility] [address] [place] [address] Pharmacist Pharmacy 07/17/18 Vaughn Reeves, NIEVES [facility] [address] [place] [address] Registered Nurse Transplant Center 04/13/19 Ricki Dc MD [address] [place] [address] [place] [address] Printing Plate Setter Nephrology 01/11/20 Vicente Vargas MD [address] [place] [address] Cardiology 04/05/21 Roxie Palmer, NIEVES [address] [place], [place] [phone] Business Systems Advisor 09/11/21 Data Review Specialist Relationship Specialty Start Date End Date Jame Hunt MD [address] [place] [address] PCP - General Internal Medicine 08/15/16 Kim La, [facility] [address] [place] [address] Pharmacist Pharmacy 07/17/18 Vaughn Reeves, NIEVES [facility] [address] [place] [address] Registered Nurse Transplant Center 04/13/19 Ricki Dc MD [address] [place] [address] [place] [address] Printing Plate Setter Nephrology 01/11/20 Vicente Vargas MD [address] [place] [address] Cardiology 04/05/21 Roxie Palmer, NIEVES [address] [place], [place] [id number] Business Systems Advisor 09/11/21 Data Review Specialist Relationship Specialty Start Date End Date Jame Hunt MD [address] [place] [address] PCP - General Internal Medicine 08/15/16 [facility] [address] [place] [address] Pharmacist Pharmacy 07/17/18 Vaughn Reeves, NIEVES [facility] [address] [place] [address] Registered Nurse Transplant Center 04/13/19 Ricki Dc MD [address] [place] [address] [place] [address] Printing Plate Setter Nephrology 01/11/20 Vicente Vargas MD [address] [place] [address] Cardiology 04/05/21 Roxie Palmer, NIEVES [address] [place], [place] [id number] Business Systems Advisor 09/11/21 Data Review Specialist Relationship Specialty Start Date End Date Jame Hunt MD [address] [place] [address] PCP - General Internal Medicine 08/15/16 [facility] [address] [place] [address], [place] [address] Pharmacist Pharmacy 07/17/18 Vaughn Reeves RN [facility] [address] [place] [address] Registered Nurse Transplant Center 04/13/19 Ricki Dc MD [address] [place] [address] [place] [address] Printing Plate Setter Nephrology 01/11/20 Vicente Vargas MD [address] [place] [address] Cardiology 04/05/21 Roxie Palmer, NIEVES [address] [place], [place] [id number] Business Systems Advisor 09/11/21 Data Review Specialist Relationship Specialty Start Date End Date Jame Hunt MD [address] [place] [address] PCP - General Internal Medicine 08/15/16 [facility] [address] [place] [address] Pharmacist Pharmacy 07/17/18 Vaughn Reeves, NIEVES [facility] [address] [place] [address] Registered Nurse Transplant Center 04/13/19 Ricki Dc MD [address] [place] [address] [place] [address] Printing Plate Setter Nephrology 01/11/20 Vicente Vargas MD [address] [place] [address] Cardiology 04/05/21 Roxie Palmer, NIEVES [address] [place], [place] [id number] Business Systems Advisor 09/11/21 Data Review Specialist Relationship Specialty Start Date End Date Jame Hunt MD [address] [place] [address] PCP - General Internal Medicine 08/15/16 [facility] [address] [place] [address] Pharmacist Pharmacy 07/17/18 Vaughn Reeves RN [facility] [address] [place] [address] Registered Nurse Transplant Center 04/13/19 Ricki Dc MD [address] [address] Printing Plate Setter Nephrology 01/11/20 Vicente Vargas MD [address] [place] [address] Cardiology 04/05/21 Roxie Palmer RN [address] [place], [place] [phone] Business Systems Advisor 09/11/21 Data Review Specialist Relationship Specialty Start Date End Date Jame Hunt MD [address] [place] [address] PCP - General Internal Medicine 08/15/16 [facility] [address] [place] [address] Pharmacist Pharmacy 07/17/18 Vaughn Reeves RN [facility] [address] [place] [address] Registered Nurse Transplant Center 04/13/19 Ricki Dc MD [address] [address] [place] [address] Printing Plate Setter Nephrology 01/11/20 Vicente Vargas MD [address] [place] [address] Cardiology 04/05/21 Roxie Palmer, NIEVES [address] [place], [place] [phone] Business Systems Advisor 09/11/21 Data Review Specialist Relationship Specialty Start Date End Date Jame Hunt MD [address] [facility] [place] [address] PCP - General Internal Medicine 08/15/16 [facility] [address] [place] [address] Pharmacist Pharmacy 07/17/18 Vaughn Reeves RN [facility] [address] [place] [address] Registered Nurse Transplant Center 04/13/19 Ricki Dc MD [address] [address] Printing Plate Setter Nephrology 01/11/20 Vicente Vargas MD [address] [place] [address] Cardiology 04/05/21 Roxie Palmer RN [address] [place], [place] [phone] Business Systems Advisor 09/11/21 Data Review Specialist Relationship Specialty Start Date End Date Jame Hunt MD [address] [place] [address] PCP - General Internal Medicine 08/15/[address] [address] Pharmacist Pharmacy 07/17/18 Vaughn Reeves RN [facility] [address] [place] [address] Registered Nurse Transplant Center 04/13/19 Ricki Dc MD [address] [address] Printing Plate Setter Nephrology 01/11/20 Vicente Vargas MD [address] [place] [address] Cardiology 04/05/21 Dasha Colvin, loan specialistBusiness Systems Advisor 08/07/22 Data Review Specialist Relationship Specialty Start Date End Date Jame Hunt MD [address] [facility] [place] [address] PCP - General Internal Medicine 08/15/16 [facility] [address] [place] [address] Pharmacist Pharmacy 07/17/18 Vaughn Reeves RN [facility] [address] [place] [address] Registered Nurse Transplant Center 04/13/19 Ricki Dc MD [address] [address] Printing Plate Setter Nephrology 01/11/20 Vicente Vargas MD [address] [place] [address] Cardiology 04/05/21 Dasha Colvin, loan specialistBusiness Systems Advisor 08/07/22 Data Review Specialist Relationship Specialty Start Date End Date Jame Hunt MD [address] [facility] [place], [place] [address] PCP - General Internal Medicine 08/15/16 Kim La, [facility] [address] [place] [address] Pharmacist Pharmacy 07/17/18 Vaughn Reeves RN [facility] [address] [place] [address] Registered Nurse Transplant Center 04/13/19 Ricki Dc MD [address] [address] Printing Plate Setter Nephrology 01/11/20 Vicente Vargas MD [address] [place] [address] Cardiology 04/05/21 Dasha Colvin, loan specialistBusiness Systems Advisor 08/07/22 Data Review Specialist Relationship Specialty Start Date End Date Jame Hunt MD [address] [place] [address] PCP - General Internal Medicine 08/15/16 [facility] [address] [place] [address] Pharmacist Pharmacy 07/17/18 Vaughn Reeves RN [facility] [address] [place] [address] Registered Nurse Transplant Center 04/13/19 Ricki Dc MD [address] [address] Printing Plate Setter Nephrology 01/11/20 Vicente Vargas MD [address] [place] [address] Cardiology 04/05/21 Dasha Colvin, loan specialistBusiness Systems Advisor 08/07/22 Data Review Specialist Relationship Specialty Start Date End Date Jame Hunt MD [address] [place] [address] PCP - General Internal Medicine 08/15/16 [facility] [address] [place] [address] Pharmacist Pharmacy 07/17/18 Vaughn Reeves RN [facility] [address] [place] [address] Registered Nurse Transplant Center 04/13/19 Ricki Dc MD [address] [address] Printing Plate Setter Nephrology 01/11/20 Vicente Vargas MD [address] [place] [address] Cardiology 04/05/21 Sienna Miller, loan specialistBusiness Systems Advisor 09/18/22 Data Review Specialist Relationship Specialty Start Date End Date Jame Hunt MD [address] [place] [address] PCP - General Internal Medicine 08/15/16 [facility] [address] [place] [address] Pharmacist Pharmacy 07/17/18 Vaughn Reeves RN [facility] [address] [place] [address] Registered Nurse Transplant Center 04/13/19 Ricki Dc MD [address] [address] Printing Plate Setter Nephrology 01/11/20 Vicente Vargas MD [address] [place] [address] Cardiology 04/05/21 Sienna Miller, loan specialistBusiness Systems Advisor 09/18/22 Data Review Specialist Relationship Specialty Start Date End Date Jame Hunt MD [address] [place] [address] PCP - General Internal Medicine 08/15/16 Kim La RPh [address] [place] [address] Pharmacist Pharmacy 07/17/18 Vaughn Reeves RN [facility] [address] [place] [address] Registered Nurse Transplant Center 04/13/19 Ricki Dc MD [address] [address] Printing Plate Setter Nephrology 01/11/20 Vicente Vargas MD [address] [place] [address] Cardiology 04/05/21 Sienna Miller loan specialistBusiness Systems Advisor 09/18/22 Data Review Specialist Relationship Specialty Start Date End Date Jame Hunt MD [address] [place] [address] PCP - General Internal Medicine 08/15/16 [facility]av [facility] [address] [place] [address] Pharmacist Pharmacy 07/17/18 Vaughn Reeves RN [facility] [address] [place] [address] Registered Nurse Transplant Center 04/13/19 Ricki Dc MD [address] [address] Printing Plate Setter Nephrology 01/11/20 Vicente Vargas MD [address] [place] [address] Cardiology 04/05/21 Sienna Miller RN Business Systems Advisor 09/18/22 Data Review Specialist Relationship Specialty Start Date End Date Jame Hunt MD [address] [place] [address] PCP - General Internal Medicine 08/15/16 [place] [facility] [address] [place] [address] Pharmacist Pharmacy 07/17/18 Vaughn Reeves RN [facility] [address] [place] [address] Registered Nurse Transplant Center 04/13/19 Ricki Dc MD [address] [address] Printing Plate Setter Nephrology 01/11/20 Vicente Vargas MD [address] [place] [address] (Fax) Cardiology 04/05/21 Sienna Miller loan specialistBusiness Systems Advisor 09/18/22 Data Review Specialist Relationship Specialty Start Date End Date Jame Hunt MD [address] [place] [address] PCP - General Internal Medicine 08/15/16 [facility] [address] [place] [address] Pharmacist Pharmacy 07/17/18 Vaughn Reeves RN [facility] [address] [place] [address] Registered Nurse Transplant Center 04/13/19 Ricki Dc MD [address] [address] Printing Plate Setter Nephrology 01/11/20 Vicente Vargas MD [address] [place] [address] Cardiology 04/05/21 Sienna Miller RN Business Systems Advisor 09/18/22 Data Review Specialist Relationship Specialty Start Date End Date Jame Hunt MD [address] [place] [address] PCP - General Internal Medicine 08/15/16 AbhinavKim harris, [facility] [address] [place] [address] Pharmacist Pharmacy 07/17/18 Vaughn Reeves RN [facility] [address] [place] [address] Registered Nurse Transplant Center 04/13/19 Ricki Dc MD [address] [place] [address] Printing Plate Setter Nephrology 01/11/20 Vicente Vargas MD [address] [place] [address] Cardiology 04/05/21 Sienna Mliler, loan specialistBusiness Systems Advisor 09/18/22 Data Review Specialist Relationship Specialty Start Date End Date Jame Hunt MD [address] [place] [address] PCP - General Internal Medicine 08/15/16 Kim La, [facility] [address] [place] [address] Pharmacist Pharmacy 07/17/18 Vaughn Reeves RN [facility] [address] [place] [address] Registered Nurse Transplant Center 04/13/19 Ricki Dc MD [address] [place] [address] Printing Plate Setter Nephrology 01/11/20 Vicente Vargas MD [address] [place] [address] Cardiology 04/05/21 Sienna Miller loan specialistBusiness Systems Advisor 09/18/22 Data Review Specialist Relationship Specialty Start Date End Date Jame Hunt MD [address] [place] [address] PCP - General Internal Medicine 08/15/16 Kim La, [facility] [address] [place] [address] Pharmacist Pharmacy 07/17/18 Vaughn Reeves RN [facility] [address] [place] [address] Registered Nurse Transplant Center 04/13/19 Ricki Dc MD [address] [address] Printing Plate Setter Nephrology 01/11/20 Vicente Vargas MD [address] [place] [address] Cardiology 04/05/21 Sienna Miller RN Business Systems Advisor 09/18/22 Data Review Specialist Relationship Specialty Start Date End Date Jame Hunt MD [address] [place] [address] PCP - General Internal Medicine 08/15/16 Kim La, [facility] [address] [place] [address] Pharmacist Pharmacy 07/17/18 Vaughn Reeves RN [facility] [address] [place] [address] Registered Nurse Transplant Center 04/13/19 Ricki Dc MD [address] [address] Printing Plate Setter Nephrology 01/11/20 Vicente Vargas MD [address] [place] [address] Cardiology 04/05/21 Sienna Miller, loan specialistBusiness Systems Advisor 09/18/22 Data Review Specialist Relationship Specialty Start Date End Date Jame Hunt MD [address] [place] [address] PCP - General Internal Medicine 08/15/16 [facility] [address] [place] [address] Pharmacist Pharmacy 07/17/18 Vaughn Reeves RN [facility] [address] [place] [address] Registered Nurse Transplant Center 04/13/19 Ricki Dc MD [address] [address] Printing Plate Setter Nephrology 01/11/20 Vicente Vargas MD [address] [place] [address] Cardiology 04/05/21 Sienna Miller, loan specialistBusiness Systems Advisor 09/18/22 Data Review Specialist Relationship Specialty Start Date End Date Jame Hunt MD [address] [place] [address] PCP - General Internal Medicine 08/15/16 [facility] [address] [place] [address] Pharmacist Pharmacy 07/17/18 Vaughn Reeves RN [facility] [address] [place] [address] Registered Nurse Transplant Center 04/13/19 Ricki Dc MD [address] [address] Printing Plate Setter Nephrology 01/11/20 Vicente Vargas MD [address] [place] [address] Cardiology 04/05/21 Sienna Miller, loan specialistBusiness Systems Advisor 09/18/22 Data Review Specialist Relationship Specialty Start Date End Date Jame Hunt MD [address] [place] [address] PCP - General Internal Medicine 08/15/16 Kim La, [facility] [address] [place] [address] Pharmacist Pharmacy 07/17/18 Vaughn Reeves RN [facility] [address] [place] [address] Registered Nurse Transplant Center 04/13/19 Ricki Dc MD [address] [address] Printing Plate Setter Nephrology 01/11/20 Vicente Vargas MD [address] [place] [address] Cardiology 04/05/21 Sienna Miller, loan specialistBusiness Systems Advisor 09/18/22 Data Review Specialist Relationship Specialty Start Date End Date Jame Hunt MD [address] [place] [address] PCP - General Internal Medicine 08/15/16 Abhinav Kim, [facility] [address] [place] [address] Pharmacist Pharmacy 07/17/18 Vaughn Reeves RN [facility] [address] [place] [address] Registered Nurse Transplant Center 04/13/19 Ricki Dc MD [address] [address] Printing Plate Setter Nephrology 01/11/20 Vicente Vargas MD [address] [place] [address] Cardiology 04/05/21 Sienna Miller loan specialistBusiness Systems Advisor 09/18/22 Data Review Specialist Relationship Specialty Start Date End Date Jame Hunt MD [address] [place] [address] PCP - General Internal Medicine 08/15/16 [place] [facility] [address] [place] [address] Pharmacist Pharmacy 07/17/18 Vaughn Reeves RN [facility] [address] [place] [address] Registered Nurse Transplant Center 04/13/19 Ricki Dc MD [address] [address] Printing Plate Setter Nephrology 01/11/20 Vicente Vargas MD [address] [place] [address] Cardiology 04/05/21 Sienna Miller RN Business Systems Advisor 09/18/22 Data Review Specialist Relationship Specialty Start Date End Date Jame Hunt MD [address] [place] [address] PCP - General Internal Medicine 08/15/16 Kim La, [facility] [address] [place] [address] Pharmacist Pharmacy 07/17/18 Vaughn Reeves RN [facility] [address] [place] [address] Registered Nurse Transplant Center 04/13/19 Ricki Dc MD [address] [place] [address] Printing Plate Setter Nephrology 01/11/20 Vicente Vargas MD [address] [place] [address] Cardiology 04/05/21 Roxie Palmer RN [address] [place] [address] Business Systems Advisor 09/11/2108/06 Data Review Specialist Relationship Specialty Start Date End Date Jame Hunt MD [address] [place] [address] PCP - General Internal Medicine 08/15/16 [facility] [address] [place] [address] Pharmacist Pharmacy 07/17/18 Vaughn Reeves RN [facility] [address] [place] [address] Registered Nurse Transplant Center 04/13/19 Ricki Dc MD [address] [place] [address] Printing Plate Setter Nephrology 01/11/20 Vicente Vargas MD [address] [place] [address] (Fax) Cardiology 04/05/21 Sienna Miller, loan specialistBusiness Systems Advisor 09/18/22 Data Review Specialist Relationship Specialty Start Date End Date Jame Hunt MD [address] [place] [address] PCP - General Internal Medicine 08/15/16 Kim La, [facility] [address] [place] [address] Pharmacist Pharmacy 07/17/18 Vaughn Reeves RN [facility] [address] [place] [address] Registered Nurse Transplant Center 04/13/19 Ricki Dc MD [address] [address] Printing Plate Setter Nephrology 01/11/20 Vicente Vargas MD [address] [place] [address] Cardiology 04/05/21 Sienna Miller loan specialistBusiness Systems Advisor 09/18/22 Lizeth Bey MD [address] [place] [address] Primary Staff Physician Cardiology 01/10/23 Data Review Specialist Relationship Specialty Start Date End Date Jame Hunt MD [address] [place] [address] PCP - General Internal Medicine 08/15/16 Kim La, [facility] [address] [place] [address] Pharmacist Pharmacy 07/17/18 Vaughn Reeves RN [facility] [address] [place] [address] Registered Nurse Transplant Center 04/13/19 Ricki Dc MD [address] [address] Printing Plate Setter Nephrology 01/11/20 Vicente Vargas MD [address] [place] [address] Cardiology 04/05/21 Sienna Miller RN Business Systems Advisor 09/18/22 Lizeth Bey MD [address] [place] [address] Primary Staff Physician Cardiology 01/10/23 Data Review Specialist Relationship Specialty Start Date End Date Jame Hunt MD [address] [place] [address] PCP - General Internal Medicine 08/15/16 Kim La, [facility] [address] [place], [place] [address] Pharmacist Pharmacy 07/17/18 Vaughn Reeves RN [facility] [address] [place] [address] Registered Nurse Transplant Center 04/13/19 Ricki Dc MD [address] [address] Printing Plate Setter Nephrology 01/11/20 Vicente Vargas MD [address] [place] [address] Cardiology 04/05/21 Sienna Miller RN Business Systems Advisor 09/18/22 Lizeth Bey MD [address] [place] [address] Primary Staff Physician Cardiology 01/10/23 Data Review Specialist Relationship Specialty Start Date End Date Jame Hunt MD [address] [place] [address] PCP - General Internal Medicine 08/15/16 Kim La, [facility] [address] [place] [address] Pharmacist Pharmacy 07/17/18 Vaughn Reeves, NIEVES [facility] [address] [place] [address] Registered Nurse Transplant Center 04/13/19 Ricki Dc MD [address] [address] Printing Plate Setter Nephrology 01/11/20 Vicente Vargas MD [address] [place] [address] Cardiology 04/05/21 Sienna Miller, loan specialistBusiness Systems Advisor 09/18/22 Lizeth Bey MD [address] [place] [address] Primary Staff Physician Cardiology 01/10/23 Data Review Specialist Relationship Specialty Start Date End Date Jame Hunt MD [address] [place] [address] PCP - General Internal Medicine 08/15/16 Kim La, [facility] [address] [place] [address] Pharmacist Pharmacy 07/17/18 Vaughn Reeves, NIEVES [facility] [address] [place] [address] Registered Nurse Transplant Center 04/13/19 Ricki Dc MD [address] [address] Printing Plate Setter Nephrology 01/11/20 Vicente Vargas MD [address] [place] [address] (Fax) Cardiology 04/05/21 Sienna Miller, loan specialistBusiness Systems Advisor 09/18/22 Lizeth Bey MD [address] [place] [address] Primary Staff Physician Cardiology 01/10/23 Data Review Specialist Relationship Specialty Start Date End Date Jame Hunt MD [address] [place] [address] PCP - General Internal Medicine 08/15/16 Kim La, [facility] [address] [place] [address] Pharmacist Pharmacy 07/17/18 Vaughn Reeves, NIEVES [facility] [address] [place] [address] Registered Nurse Transplant Center 04/13/19 Ricki Dc MD [address] [address] Printing Plate Setter Nephrology 01/11/20 Vicente Vargas MD [address] [place] [address] Cardiology 04/05/21 Sienna Miller loan specialistBusiness Systems Advisor 09/18/22 Lizeth Bey MD [address] [place] [address] Primary Staff Physician Cardiology 01/10/23 Data Review Specialist Relationship Specialty Start Date End Date Jame Hunt MD [address] [place] [address] PCP - General Internal Medicine 08/15/16 Kim La, [facility] [address] [place] [address] Pharmacist Pharmacy 07/17/18 Vaughn Reeves RN [facility] [address] [place] [address] Registered Nurse Transplant Center 04/13/19 Ricki Dc MD [address] [place] [address] [place] [address] Printing Plate Setter Nephrology 01/11/20 Vicente Vargas MD [address] [place] [address] Cardiology 04/05/21 Sienna Miller RN Business Systems Advisor 09/18/22 Lizeth Bey MD [address] [place] [address] Primary Staff Physician Cardiology 01/10/23 FOR RECORDS PERTAINING TO PATIENTS WHO ARE OR HAVE BEEN ENROLLED IN A CHEMICAL DEPENDENCY/SUBSTANCEABUSE PROGRAM, SOME INFORMATION MAY BE OMITTED. This clinical summary was aggregated from multiple sources. Caution should be exercised in using it in the provision of clinical care. This summary normalizes information from multiple sources, and as a consequence, information in this document may materially change the coding, format and clinical context of patient data. In addition, data may be omitted in some cases. CLINICAL DECISIONS SHOULD BE BASED ON THE PRIMARY CLINICAL RECORDS. [facility]. provides no warranty or guarantee of the accuracy or completeness of information in this document.
--- NOTE | 2023-03-24 20:45 | RAD_ITS ---
STUDY: X-RAY CHEST REASON FOR EXAM: Female, 67 years old. weakness, falls TECHNIQUE: AP portable COMPARISON: February 03, 2023 FINDINGS: The lungs are clear and expanded. There is no demonstrated pleural abnormality. Heart is mildly enlarged. Normal mediastinum and alvina. Normal visualized pulmonary arteries. Normal visualized aortic arch and descending thoracic aorta. Dorsal spine demonstrates scoliosis and degenerative change Normal visualized ribs, clavicles, and shoulders. There is no demonstrated abnormality of the visualized soft tissue structures of the upper abdomen. RAD/Chest 1 View (Portable) IMPRESSION: No acute cardiopulmonary pathology. Electronically Signed: Reji Sarmiento MD at 22:23 [facility] ,
--- NOTE | 2023-03-24 20:47 | RAD_ITS ---
STUDY: X-RAY - RIGHT FOOT CLINICAL: Female, 67 years old. Injury/Pain TECHNIQUE: 3 view(s) of the foot. COMPARISON: None. FINDINGS: Normal talus, and tarsal bones. Small plantar calcaneal spur Normal visualized subtalar, talonavicular, calcaneocuboid, tarsal and tarsometatarsal articulations. Normal metatarsi. Normal metatarsophalangeal joint of the great toe. Normal tibial and fibular sesamoid bones. Normal interphalangeal joint of the great toe. Normal phalanges of the great toe. Normal second through fifth metatarsophalangeal joints. Normal interphalangeal joints and phalanges of the lesser toes. Small metallic appearing densities appear to be within the cutaneous fat of the plantar surface of the lateral foot consistent with foreign bodies. Clinical correlation recommended RAD/Foot min 3 Views IMPRESSION: No evidence for acute fracture or dislocation. Apparent metallic foreign bodies within the soft tissues of the plantar surface of the lateral foot. Clinical correlation is recommended Electronically Signed: Reji Sarmiento MD at 22:27 EST Reading Location ID and State: [facility] / [place] Tel , Service support ,
--- NOTE | 2023-03-24 20:47 | RAD_ITS ---
STUDY: X-RAY - RIGHT ANKLE REASON FOR EXAM: Female, 67 years old. Injury/Pain TECHNIQUE: 3 view(s) of the ankle. COMPARISON: None. FINDINGS: Normal visualized distal tibia and fibula. Normal medial and lateral malleoli. Normal tibiotalar articulation and ankle mortise. Normal visualized talus . Small plantar calcaneal spur. The visualized subtalar, talonavicular, calcaneocuboid and tarsal articulations are normal. Bimalleolar soft tissue swelling worse along lateral aspect. Radiopaque densities projecting over the plantar surface of the foot with lateral projection which change position on other images most likely artifact. RAD/Ankle min 3 Views IMPRESSION: Bimalleolar sprain. No acute fracture or dislocation Electronically Signed: Reji Sarmiento MD at 22:21 EST ,
--- NOTE | 2023-03-24 20:47 | RAD_ITS ---
STUDY: X-RAY - RIGHT SHOULDER REASON FOR EXAM: Female, 67 years old. Injury/Pain TECHNIQUE: 4 view(s) of the shoulder. COMPARISON: None. FINDINGS: Mild inferior subluxation. Normal acromioclavicular joint. Normal acromion. Normal humeral head and visualized proximal humerus. The soft tissue structures are unremarkable. Normal visualized pulmonary apex. RAD/Shoulder min 2 Views IMPRESSION: Mild inferior subluxation of the shoulder without evidence for associated fracture Electronically Signed: Reji Sarmiento MD at 22:24 EST ,
--- NOTE | 2023-03-24 20:48 | RAD_ITS ---
STUDY: X-RAY - LEFT KNEE REASON FOR EXAM: Female, 67 years old. Injury/Pain TECHNIQUE: 4 view(s) of the knee. COMPARISON: None. FINDINGS: Normal visualized distal femur. Normal visualized proximal tibia and fibula. Normal proximal tibiofibular articulation. Narrowed medial femorotibial compartment with subchondral cystic changes of the medial tibial condyle. Normal lateral femorotibial compartment. Narrowed patellofemoral articulation with mild spurring. Mild chondrocalcinosis.. RAD/Knee 4 or More Views IMPRESSION: Degenerative changes. No acute fracture or dislocation Electronically Signed: Reji Sarmiento MD at 22:17 EST Reading Location ID and State: [facility] / [place] Tel , Service support ,
[2023-03-24] MEDS: Morphine 4 MG/ML Syringe IV (21:07)
[2023-03-24 21:14] LABS: Absolute Lymphocyte Count 0.51 X10^3/uL (0.83-4.51); Absolute Neutrophil Count 2.9 X10^3/uL (2.0-7.7); Eosinophil# 0.15 X10^3/uL; Eosinophils% 3.9 % (0-5); Hematocrit 33.3 % (37-47); Hemoglobin 10.1 g/dL (12.0-15.0); Lymphocyte # 0.51 X10^3/ul (0.83-4.51); Lymphocyte % 13.2 % (19-41); Mean Corp Hgb Conc 30.3 g/dL (32-36); Mean Corpuscular Hgb 29.9 pg (27.0-32.0); Mean Corpuscular Volume 98.5 fL (81-99); Mean Platelet Vol. 11.1 fl (6.2-12.0); Monocyte# 0.24 X10^3/uL; Monocyte% 6.2 % (0-10); NRBC Flagged by Analyzer 0 % (0-5); Neutrophil # 2.94 X10^3/uL (2.7-7.7); Neutrophil % 75.9 % (47-70); POSITIVE COUNT YES; POSITIVE DIFFERENTIAL YES; POSITIVE MORPHOLOGY YES; Platelet Count 80 K/mm3 (150-450); RBC Distribution Width CV 19.7 % (11.6-14.6); RBC Distribution Width SD 71.4 fl (35.1-43.9); Red Blood Count 3.38 M/mm3 (4.2-5.4); White Blood Count 3.9 K/mm3 (4.4-11.0)
[2023-03-24 21:15] VITALS: BP 163/60; PULSE 80; RESP 12; O2SAT 97
[2023-03-24 21:18] LABS: Differential Indicated SCAN CRITERIA MET
[2023-03-24 21:24] LABS: Differential Comment SCANNED
[2023-03-24 21:25] LABS: Anisocytosis 1+; Platelet Estimate MOD DEC (ADEQ)
[2023-03-24 21:37] LABS: Anion Gap 6 (5-15); BUN 34 mg/dL (7-18); CPK Total, Creatine Kinase 75 U/L (26-192); Calcium,Total 9.4 mg/dL (8.5-10.1); Chloride 99 mmol/L (98-107); EST Glomerular Filtration Rate 7 mL/min (>60); Est Glom Filt Rate - Afr Amer 8 mL/min (>60); Estimated Creatinine Clearance 10.29 ml/min; Glucose 104 mg/dL (74-106); Potassium 3.7 mmol/L (3.5-5.1); Sodium Level 138 mmol/L (136-145)
--- NOTE | 2023-03-24 21:39 | CT_ITS ---
STUDY: CT CERVICAL SPINE WITHOUT CONTRAST REASON FOR EXAM: Female, 67 years old. neck pain, fall RADIATION DOSAGE (If Supplied By Facility): CTDIvol = ( 24.86 ) mGy, DLP = ( 485.78 ) mGycm TECHNIQUE: High resolution transaxial imaging was performed without contrast material. Sagittal and coronal images were reconstructed. Individualized dose optimization techniques were used for this CT. COMPARISON: None FINDINGS: Normal craniovertebral junction. Normal anterior atlantoaxial articulation. Normal odontoid process. Normal cervical lordosis. Normal vertebral bodies and posterior osseous elements. C2-3: Normal endplates. Normal disc height and morphology. Normal central canal and intervertebral neuroforamina. C3-4: Normal endplates. Normal disc height and tiny central calcific disc protrusion. Normal central canal and intervertebral neuroforamina. C4-5: Normal endplates. Normal disc height and tiny central disc protrusion.. Normal central canal and intervertebral neuroforamina. C5-6: Narrowed disc space and minor endplate spurring.. Normal central canal and intervertebral neuroforamina. C6-7: Narrowed disc space and minor endplate spurring. Normal central canal and intervertebral neuroforamina. C7-T1: Normal endplates. Normal disc height and morphology. Normal central canal and intervertebral neuroforamina. Normal visualized soft tissue structures. CT/Spine Cervical without Contras IMPRESSION: Mild spondylosis. No acute fracture or other significant abnormality. Electronically Signed: Reji Sarmiento MD at 22:32 EST ,
--- NOTE | 2023-03-24 21:39 | CT_ITS ---
STUDY: CT BRAIN WITHOUT CONTRAST REASON FOR EXAM: Female, 67 years old. headache, fall, weakness RADIATION DOSAGE (If Supplied By Facility): CTDIvol = ( 44.99 ) mGy, DLP = ( 796.11 ) mGycm TECHNIQUE: Transaxial CT imaging of the brain was performed without administration of intravenous contrast material. Individualized dose optimization techniques were used for this CT. COMPARISON: February 03, 2023 FINDINGS: Normal soft tissue structures. Normal calvarium. Calcific plaquing of the cavernous carotids Normal size ventricles and extra-axial spaces for the patient''s age. Normal white matter tracts of the cerebral hemispheres. Normal basal ganglia and thalami. Normal brainstem. Normal cerebellum. There is no intracranial hemorrhage. There are no findings of an acute ischemic infarction. Minor mucosal thickening of bilateral maxillary sinuses. CT/Brain/Head without Contrast IMPRESSION: No acute abnormalities identified. Specifically, no evidence for obstructive hydrocephalus mass or acute bleed. If concern for acute infarct MRI recommended Electronically Signed: Reji Sarmiento MD at 22:30 EST Reading Location ID and State: [address] [place] [address] Tel , Service support ,
--- NOTE | 2023-03-24 21:50 | ED.VIS.FALL ---
HPI <Dr. Melissa Carter DO - Last Filed: 04/05/23 10:35> HPI - Fall History of Present Illness Chief Complaint: Fall Informant: patient Narrative Narrative: Patient is 67-year-old female with complex medical history including end-stage renal disease on hemodialysis (Saturday), pancytopenia, prior liver transplant, diabetes mellitus, diastolic heart failure, psoriasis and RAUL presenting for generalized weakness and falls. Patient states she had 2 falls today where her legs just gave out on her. She states sometimes her left knee kory but she did not this bad. She notes she was getting out of the bathroom when both of her legs seem to give out on her. As she fell to the left but sustained an injury to her right ankle. She states she has numbness and pain of the ankle diffusely but is worse on the lateral aspect. She also hit her left knee on the floor which is causing pain. She thinks she might of caught herself funny because her right shoulder is hurting. Show she does have a history of shoulder dislocation on the right. States she laid on the ground for about 20 minutes before her and her were able to get up. She would lay down and took a nap from 3 PM to 7 PM after this and then when got up and was walking out of the room her knees gave out on her again. She fell but denies any new injury. She denies hitting her head. She is not on any blood thinners. She states that besides a subacute on chronic back pain that she had had yesterday she has been in her normal state of health. She does take Tryon at home as needed for breakthrough pain. Denies any recent shortness of breath, weight gain, abdominal pain, nausea, vomiting, fever or chills. She states she only makes urine intermittently (about every other day). No other complaints or concerns at this time. She is concerned about being able to go home today as she lives on the second story and there is 14 steps up which she does not think she can make at this time. [facility] <Dr. Melissa Carter DO - Last Filed: 04/05/23 10:35> [facility] Medical History Anemia Anemia in chronic kidney disease Anxiety Back pain Blister Cancer Cardiology follow-up encounter Celiac disease Chronic kidney disease, stage 3 Chronic kidney failure Chronic renal failure, stage 5 Cirrhosis COPD (chronic obstructive pulmonary disease) Depression Diabetes Dialysis patient DVT (deep venous thrombosis) DVT (deep venous thrombosis) ESRD (end stage renal disease) Gastric reflux GERD (gastroesophageal reflux disease) History of echocardiogram (~01/22/20) History of edema History of irregular heartbeat History of renal dialysis History of renal disease History of stress test (~12/07/19) History of uterine cancer Hx of Krueger's palsy Hypertension Hypertension Hypothyroidism Infection involving suture with abscess Insulin dependent diabetes mellitus Irregular heart beat [employer]ANT Non-smoker Osteoporosis Pancytopenia Sleep apnea Thyroid disease Uses wheelchair Walker as ambulation aid Wears dentures Wears glasses Home Medications ascorbic acid (vitamin C) 500 mg chewable tablet 1,000 mg PO DAILY supplement 02/20/15 [History Last Taken 09/09/19] cholecalciferol (vitamin D3) 25 mcg (1,000 unit) tablet 1,000 unit PO BID supplement 02/20/15 [History Last Taken 09/09/19] insulin glargine 100 unit/mL (3 mL) subcutaneous pen (Lantus Solostar U-100 Insulin) 34 unit subcut BID blood sugar 05/29/18 [History Last Taken 01/30/23] tacrolimus 1 mg capsule, immediate-release (Prograf) 0.5 mg PO BID REJECTION 09/10/19 [History Last Taken 04/27/21] vitamin B complex 1 tablet PO DAILY SUPPLEMENT 09/10/19 [History Last Taken 09/09/19] carvedilol 25 mg tablet 12.5 mg PO BID heart 02/25/20 [History Last Taken 01/30/23] hydroxyzine HCl 25 mg tablet 25 mg PO BID PRN Itching 05/23/20 [History Last Taken Unknown] ropinirole 1 mg tablet 1 mg PO DAILY restless legs 05/23/20 [History Last Taken 06/16/20] torsemide 20 mg tablet 60 mg PO DAILY FLUID 05/23/20 [History Last Taken Unknown] ropinirole 2 mg tablet,extended release 24 hr 2 mg PO QHS restless legs 06/10/20 [History Last Taken Unknown] sevelamer carbonate 800 mg tablet (Renvela) 1,600 mg PO .TID AC kidney disease 06/10/20 [History Last Taken Unknown] nitroglycerin 0.4 mg sublingual tablet 0.4 mg sublingual Q5M PRN Cardiac/Chest Pain #30 tabs 04/29/21 [Rx Last Taken Unknown] biotin 1 mg capsule 1 mg PO BID supplement 08/11/21 [History Last Taken Unknown] melatonin 3 mg tablet 10 mg PO QHS sleep 08/11/21 [History Last Taken Unknown] sertraline 50 mg tablet (Zoloft) 50 mg PO DAILY mood 08/11/21 [History Last Taken Unknown] albuterol sulfate 90 mcg/actuation aerosol inhaler 2 puff IH Q4H PRN PRN Sob &/Or Wheezing 30 days #8.6 grams 10/25/21 [Rx Last Taken Unknown] diphenoxylate-atropine 2.5 mg-0.025 mg tablet (Lomotil) 1 tab PO TID PRN diarrhea #90 tabs 10/27/21 [Rx Last Taken 12/30/22] apremilast 30 mg tablet (Otezla) 30 mg PO DAILY 09/08/22 [History Last Taken Unknown] insulin aspart U-100 100 unit/mL (3 mL) subcutaneous pen (Novolog FlexPen U-100 Insulin aspart) 10 unit subcut TID 09/08/22 [History Last Taken Unknown] gabapentin 100 mg capsule 200 mg PO QHS 12/31/22 [History Last Taken Unknown] levothyroxine 88 mcg tablet 88 mcg PO DAILY 12/31/22 [History Last Taken 01/30/23] midodrine 10 mg tablet 10 mg PO MOWEFR 12/31/22 [History Last Taken Unknown] sucralfate 1 gram tablet (Carafate) 1 g PO BID #30 tabs 12/31/22 [Rx Last Taken Unknown] trazodone 100 mg tablet 200 mg PO QHS 12/31/22 [History Last Taken Unknown] pantoprazole 40 mg tablet,delayed release 40 mg PO BID #60 tabs 01/08/23 [Rx Last Taken Unknown] aspirin 81 mg tablet,delayed release (Adult Aspirin Regimen) 81 mg PO DAILY 01/28/23 [History Last Taken 01/26/23] omega 0-eeh-yud-fish oil 1,200 mg (144 mg-216 mg) capsule (Fish Oil) 1 cap PO DAILY SUPPLEMENT 01/28/23 [History Last Taken Unknown] atorvastatin 40 mg tablet 40 mg PO QHS #30 tabs 02/12/23 [Rx Last Taken Unknown] bisacodyl 10 mg rectal suppository (Dulcolax (bisacodyl)) 10 mg SD DAILY PRN constipation #30 ea 02/12/23 [Rx Last Taken Unknown] baclofen 5 mg tablet 5 mg PO QHS #30 tabs 03/18/23 [Rx Last Taken Unknown] hydrocodone-acetaminophen 5-325mg 5mg-325mg 1 tab PO Q6H PRN PRN Pain 3 days #10 TABLETS 03/27/23 [Rx Last Taken Unknown] Allergy/AdvReac Type Severity Reaction Status Date / Time amlodipine [From Norvasc] Allergy Severe Hives Verified 03/24/23 20:03 ampicillin sodium Allergy Severe Hives Verified 03/24/23 20:03 [From Unasyn] buspirone HCl [From BuSpar] Allergy Severe Hives Verified 03/24/23 20:03 cefadroxil [From Duricef] Allergy Severe Hives Verified 03/24/23 20:03 lisinopril Allergy Severe Swelling Verified 03/24/23 20:03 naproxen Allergy Severe Hives Verified 03/24/23 20:03 niacin Allergy Severe Hives Verified 03/24/23 20:03 [From Niaspan Extended-Release] sulbactam sodium Allergy Severe Hives Verified 03/24/23 20:03 [From Unasyn] Sulfa (Sulfonamide Allergy Severe Hives Verified 03/24/23 20:03 Antibiotics) cephalexin [From Keflex] Allergy Vomiting Verified 03/24/23 20:03 omeprazole AdvReac Severe Other Verified 03/24/23 20:03 losartan AdvReac Swelling Verified 03/24/23 20:03 Family History Mother Diabetes Anemia Father Hypertension LUNG/RESPIRATORY DISEASE Surgical History History of appendectomy History of cardiac catheterization History of cholecystectomy History of coronary artery stent placement History of coronary artery stent placement History of left knee surgery History of left salpingo-oophorectomy History of liver transplant History of radical hysterectomy History of ventral hernia repair S/P arteriovenous (AV) fistula creation (~06/16/20) Social History housing: apartment current occupational status: disabled Smoking Status: Never smoker substance use type: does not use ROS <Dr. Melissa Carter DO - Last Filed: 04/05/23 10:35> ROS ED Constitutional Constitutional ED: Reports other Details: Generalized weakness ; Denies chills or fever(s) Eyes Eyes: Denies change in vision ENT ENT ED: Denies sore throat Cardiovascular Cardiovascular: Denies chest pain Respiratory/Chest Respiratory/Chest: Denies cough Gastrointestinal Gastrointestinal: Denies abdominal pain, nausea or vomiting Musculoskeletal Musculoskeletal: Reports other Details: right shoulder pain, left knee pain, right ankle pain Integumentary Denies rash Neurologic Neurologic: Reports weakness; Denies headache(s) or paresthesias Psychiatric Psychiatric: Denies anxiety or depression Hematologic/Lymphatic Hematologic/Lymphatic: Denies easy bleeding or easy bruising EXAM <Dr. Melissa Carter DO - Last Filed: 04/05/23 10:35> Physical Exam Const Vital Signs: 03/24/23 20:00 03/24/23 21:15 03/24/23 22:17 Temperature 98.4 F Temperature Source Oral Pulse Rate 77 80 Respiratory Rate 20 H 12 Respiratory Effort Normal Non-Labored Respiratory Depth Normal Respiratory Pattern Normal Blood Pressure 140/50 H 163/60 H Blood Pressure Mean 80 94 Pulse Ox 100 97 95 Oxygen Delivery Method Room Air Room Air Room Air 03/24/23 23:26 Temperature 98.4 F Temperature Source Pulse Rate 84 Respiratory Rate 15 Respiratory Effort Respiratory Depth Respiratory Pattern Blood Pressure 163/60 H Blood Pressure Mean 94 Pulse Ox 99 Oxygen Delivery Method Positive well nourished, well developed and obese Constitutional Narrative: Chronically ill-appearing General Appearance ED: well developed and NAD Nutritional Appearance: obese HEENT Reports normocephalic atraumatic Eyes PERRL and EOMs intact bilaterally Neck full ROM Neck Narrative: Mild diffuse neck tenderness, no pinpoint area of tenderness General: tenderness Chest Wall inspection of chest normal and palpation of chest normal Resp normal respiratory effort and clear to auscultation bilaterally Cardio regular rate, regular rhythm and no murmurs Cardio Narrative: AV fistula of the left upper extremity with palpable thrill GI non-tender and non-distended Auscultation: normoactive bowel sounds Palpation: soft Back/Spine Thoracic Spine / Upper Back: Negative for thoracic spinal tenderness Lumbar Spine / Lower Back: Negative for lumbar spinal tenderness Extremity Extremity Narrative: No obvious deformity. Patient has mild diffuse tenderness of the right shoulder elbow range of motion is preserved. No other pinpoint area of tenderness of the upper extremities. Of the lower extremities the pelvis is stable. No pain with logroll range of motion of the hips bilaterally. Patient is mild tenderness palpation with range of motion of the left knee that is most pronounced along the medial aspect. No effusion appreciated. Left lower leg and ankle/foot. Normal right knee. Patient has tenderness palpation of the right ankle, most pronounced along the lateral malleolus, difficult to appreciate any acute swelling as she is chronic appearing bilateral edema of the feet. Neuro oriented x3, moves all extremities, no focal motor deficits and no sensory deficits noted Maria Del Carmen Coma Scale: document GCS findings Spontaneous Obeys Commands Oriented 15 Psych mental status grossly normal and thought process normal Skin Skin Narrative: Superficial abrasion to the left anterior knee which patient states is from her jeans rubbing the other day. No acute abrasions or ecchymosis appreciated this time. <Dr. Wali Rowland MD - Last Filed: 03/24/23 23:45> Physical Exam Const Vital Signs: 03/24/23 20:00 03/24/23 21:15 03/24/23 22:17 Temperature 98.4 F Temperature Source Oral Pulse Rate 77 80 Respiratory Rate 20 H 12 Respiratory Effort Normal Non-Labored Respiratory Depth Normal Respiratory Pattern Normal Blood Pressure 140/50 H 163/60 H Blood Pressure Mean 80 94 Pulse Ox 100 97 95 Oxygen Delivery Method Room Air Room Air Room Air 03/24/23 23:26 Temperature 98.4 F Temperature Source Pulse Rate 84 Respiratory Rate 15 Respiratory Effort Respiratory Depth Respiratory Pattern Blood Pressure 163/60 H Blood Pressure Mean 94 Pulse Ox 99 Oxygen Delivery Method Neuro Maria Del Carmen Coma Scale: document GCS findings 15 MDM <Dr. Melissa Carter DO - Last Filed: 04/05/23 10:35> [facility] Narrative Medical decision making narrative: Patient is evaluated for generalized weakness and 2 falls today. She states her legs gave out. She is multiple comorbidities. Will obtain a general metabolic workup including EKG, CBC, CMP and CK level in addition to x-ray imaging to rule out any acute traumatic process. Patient to start to complain of some mild headaches we will add on a CT of the head and C-spine for further traumatic evaluation. Patient is given dose of morphine in the ER for symptom control. Will attempt to ambulate patient to see if she can safely go home. X-rays reviewed by myself as well as radiology. No acute fracture or dislocation is seen however radiology does report a bimalleolar sprain of the right ankle which is her area of maximum pain. Will place in an Aryan wrap and attempt ambulation. There is signs of subluxation of the right shoulder but she has a history of prior dislocation and does have range of motion of her shoulder at this time. If patient cannot ambulate especially as she lives on the second story and has 14 steps up will admit. Patient signed out to physician, Dr. Rowland for final disposition, anticipate she will be admitted to the hospital. Patient was turned over to me pending attempted ambulation. She sometimes use a walker at home. She was able to get up on the edge of the bed. She put weight on her feet. She did not feel strong enough to even take a step. She had ankle pain. She also has knees hurting. I talked with the patient. She has never been in a rehab facility. She does admit that she has been getting weaker over the last months. She is willing to come in the hospital and go to rehab afterwards. I have hospitalist on page. I note that the urine does show greater than 100 white cells. I talked to the patient. She still makes some urine every day. She is not having symptoms with this but her UA is quite different than others and quite concerning. This might be contributing to her weakness. I will send a culture but we will treat this in the meantime. Due to her allergy profile, we will use Levaquin. Patient sees Dr. Strickland for her renal care. Lab Data Attestation: I reviewed the patient's lab results. Labs: Laboratory Results - last 24 hr 03/24/23 03/24/23 21:03 22:14 WBC 3.9 L RBC 3.38 L Hgb 10.1 L Hct 33.3 L MCV 98.5 MCH 29.9 MCHC 30.3 L RDW Std Deviation 71.4 H RDW Coeff of Tami 19.7 H Plt Count 80 L MPV 11.1 Immature Gran % (Auto) 0.800 Neut % (Auto) 75.9 H Lymph % (Auto) 13.2 L [place] % (Auto) 6.2 Eos % (Auto) 3.9 Baso % (Auto) 0.0 Absolute Neuts (auto) 2.9 Absolute Lymphs (auto) 0.51 L Nucleated RBC % 0 Differential Comment SCANNED Diff Path Review May foll Platelet Estimate MOD DEC Anisocytosis 1+ Sodium 138 Potassium 3.7 Chloride 99 Carbon Dioxide 33.0 H Anion Gap 6 BUN 34 H Creatinine 6.80 H Estim Creat Clear Calc 10.29 Est GFR (MDRD) Af Amer 8 L Est GFR (MDRD) Non-Af 7 L BUN/Creatinine Ratio 5.0 L Glucose 104 Calcium 9.4 Total Creatine Kinase 75 Urine Color Yellow Urine Clarity Cloudy Urine pH 8.0 Ur Specific Rush 1.015 Urine Protein 100 H Urine Glucose (UA) Normal Urine Ketones 5 H Urine Occult Blood 50 H Urine Nitrite Negative Urine Bilirubin Negative Urine Urobilinogen Normal Ur Leukocyte Esterase 500 H Urine RBC 0 SEEN Urine WBC >100 SEEN Ur Squamous Epith Cells 0 SEEN Urine Bacteria 0 SEEN Urine Mucus 0 SEEN Radiography Diagnostic Testing: Clinical Impression(s) from Imaging Studies Chest X-Ray 03/24/23 20:45 IMPRESSION: No acute cardiopulmonary pathology. Electronically Signed: Reji Sarmiento MD at 22:23 EST Reading Location ID and State: [address] [place] [address] Tel [phone], Service support , Ankle X-Ray 03/24/23 20:47 IMPRESSION: Bimalleolar sprain. No acute fracture or dislocation Electronically Signed: Reji Sarmiento MD at 22:21 EST Reading Location ID and State: [facility] / [place] Tel [phone], Service support , Foot X-Ray 03/24/23 20:47 IMPRESSION: No evidence for acute fracture or dislocation. Apparent metallic foreign bodies within the soft tissues of the plantar surface of the lateral foot. Clinical correlation is recommended Electronically Signed: Reji Sarmiento MD at 22:27 EST , Shoulder X-Ray 03/24/23 20:47 IMPRESSION: Mild inferior subluxation of the shoulder without evidence for associated fracture Electronically Signed: Reji Sarmiento MD at 22:24 EST Reading Location ID and State: [facility] / [place] Tel [phone], Service support , Knee X-Ray 03/24/23 20:48 IMPRESSION: Degenerative changes. No acute fracture or dislocation Electronically Signed: Reji Sarmiento MD at 22:17 EST , Brain CT 03/24/23 21:39 IMPRESSION: No acute abnormalities identified. Specifically, no evidence for obstructive hydrocephalus mass or acute bleed. If concern for acute infarct MRI recommended Electronically Signed: Reji Sarmiento MD at 22:30 EST Reading Location ID and State: [facility] / [place] Tel [phone], Service support , Cervical Spine CT 03/24/23 21:39 IMPRESSION: Mild spondylosis. No acute fracture or other significant abnormality. Electronically Signed: Reji Sarmiento MD at 22:32 EST , Rhythm Strip Rhythm Strip: Sinus Rhythm Rate: 82 Ectopy: None EKG Initial EKG: Attestation: I personally reviewed and interpreted this EKG as follows: Interpretation: Sinus Rhythm Comments: Normal sinus rhythm at a rate of 82 bpm with first-degree AV block SD interval 246 Left axis deviation Left bundle branch block Normal ST segments Compared to prior EKG there are no acute changes <Dr. Wali Rowland MD - Last Filed: 03/24/23 23:45> MDM MDM Narrative Medical decision making narrative: Patient is evaluated for generalized weakness and 2 falls today. She states her legs gave out. She is multiple comorbidities. Will obtain a general metabolic workup including EKG, CBC, CMP and CK level in addition to x-ray imaging to rule out any acute traumatic process. Patient to start to complain of some mild headaches we will add on a CT of the head and C-spine for further traumatic evaluation. Patient is given dose of morphine in the ER for symptom control. Will attempt to ambulate patient to see if she can safely go home. X-rays reviewed by myself as well as radiology. No acute fracture or dislocation is seen however radiology does report a bimalleolar sprain of the right ankle which is her area of maximum pain. Will place in an Aryan wrap and attempt ambulation. There is signs of subluxation of the right shoulder but she has a history of prior dislocation and does have range of motion of her shoulder at this time. If patient cannot ambulate especially as she lives on the second story and has 14 steps up will admit. Patient signed out to physician, Dr. Rodríguez for final disposition, dissipate she will be admitted to the hospital. Patient was turned over to me pending attempted ambulation. She sometimes use a walker at home. She was able to get up on the edge of the bed. She put weight on her feet. She did not feel strong enough to even take a step. She had ankle pain. She also has knees hurting. I talked with the patient. She has never been in a rehab facility. She does admit that she has been getting weaker over the last months. She is willing to come in the hospital and go to rehab afterwards. I have hospitalist on page. I note that the urine does show greater than 100 white cells. I talked to the patient. She still makes some urine every day. She is not having symptoms with this but her UA is quite different than others and quite concerning. This might be contributing to her weakness. I will send a culture but we will treat this in the meantime. Due to her allergy profile, we will use Levaquin. Patient sees Dr. Strickland for her renal care. Lab Data Labs: Laboratory Results - last 24 hr 03/24/23 03/24/23 21:03 22:14 WBC 3.9 L RBC 3.38 L Hgb 10.1 L Hct 33.3 L MCV 98.5 MCH 29.9 MCHC 30.3 L RDW Std Deviation 71.4 H RDW Coeff of Tami 19.7 H Plt Count 80 L MPV 11.1 Immature Gran % (Auto) 0.800 Neut % (Auto) 75.9 H Lymph % (Auto) 13.2 L [place] % (Auto) 6.2 Eos % (Auto) 3.9 Baso % (Auto) 0.0 Absolute Neuts (auto) 2.9 Absolute Lymphs (auto) 0.51 L Nucleated RBC % 0 Differential Comment SCANNED Diff Path Review May foll Platelet Estimate MOD DEC Anisocytosis 1+ Sodium 138 Potassium 3.7 Chloride 99 Carbon Dioxide 33.0 H Anion Gap 6 BUN 34 H Creatinine 6.80 H Estim Creat Clear Calc 10.29 Est GFR (MDRD) Af Amer 8 L Est GFR (MDRD) Non-Af 7 L BUN/Creatinine Ratio 5.0 L Glucose 104 Calcium 9.4 Total Creatine Kinase 75 Urine Color Yellow Urine Clarity Cloudy Urine pH 8.0 Ur Specific Rush 1.015 Urine Protein 100 H Urine Glucose (UA) Normal Urine Ketones 5 H Urine Occult Blood 50 H Urine Nitrite Negative Urine Bilirubin Negative Urine Urobilinogen Normal Ur Leukocyte Esterase 500 H Urine RBC 0 SEEN Urine WBC >100 SEEN Ur Squamous Epith Cells 0 SEEN Urine Bacteria 0 SEEN Urine Mucus 0 SEEN Radiography Diagnostic Testing: Clinical Impression(s) from Imaging Studies Chest X-Ray 03/24/23 20:45 IMPRESSION: No acute cardiopulmonary pathology. Electronically Signed: Reji Sarmiento MD at 22:23 EST , Ankle X-Ray 03/24/23 20:47 IMPRESSION: Bimalleolar sprain. No acute fracture or dislocation Electronically Signed: Reji Sarmiento MD at 22:21 EST , Foot X-Ray 03/24/23 20:47 IMPRESSION: No evidence for acute fracture or dislocation. Apparent metallic foreign bodies within the soft tissues of the plantar surface of the lateral foot. Clinical correlation is recommended Electronically Signed: Reji Sarmiento MD at 22:27 EST , Shoulder X-Ray 03/24/23 20:47 IMPRESSION: Mild inferior subluxation of the shoulder without evidence for associated fracture Electronically Signed: Reji Sarmiento MD at 22:24 EST , Knee X-Ray 03/24/23 20:48 IMPRESSION: Degenerative changes. No acute fracture or dislocation Electronically Signed: Reji Sarmiento MD at 22:17 EST , Brain CT 03/24/23 21:39 IMPRESSION: No acute abnormalities identified. Specifically, no evidence for obstructive hydrocephalus mass or acute bleed. If concern for acute infarct MRI recommended Electronically Signed: Reji Sarmiento MD at 22:30 EST Reading Location ID and State: [facility] / [place] Tel [phone], Service support , Cervical Spine CT 03/24/23 21:39 IMPRESSION: Mild spondylosis. No acute fracture or other significant abnormality. Electronically Signed: Reji Sarmiento MD at 22:32 EST , Management Discussion w/another healthcare provider: Hospitalist Discharge Plan Dx/Rx/DC Orders Clinical Impression: Anterior subluxation of right shoulder, Weakness, Falls, Right ankle sprain, Unable to ambulate, History of liver transplant, Acute UTI, Chronic kidney disease, Multiple falls Disposition Disposition: [facility] Discharge Date/Time: 03/25/23 00:53
[2023-03-24 22:17] VITALS: O2SAT 95
[2023-03-24 22:19] LABS: Bacteria 0 SEEN /hpf (None Seen); Mucous, Urine 0 SEEN /hpf (<or=2+); Red Blood Cells-Urine 0 SEEN /hpf (0-5); Squamous Epithelial Cells - UA 0 SEEN /hpf (5-10)
[2023-03-24 22:40] LABS: Color, Urine Yellow (Yellow); Glucose, Dipstick Normal (Normal); Ketone-Dipstick 5 mg/dl (Negative); Leukocyte Esterase-Dipstick 500 /ul (Negative); Nitrite-Dipstick Negative (Negative); Occult Blood-Urine 50 /ul (Negative); Protein-Dipstick 100 mg/dl (Negative); Specific Gravity, Urine 1.015 (1.002-1.030); Urine Bilirubin Dipstick Negative (Negative); Urine Clarity Cloudy (Clear); Urine Urobilinogen Normal (Normal)
[2023-03-24 22:47] LABS: White Blood Cells >100 SEEN /hpf (0-5)
[2023-03-24 23:00] VITALS: BP 149/57; PULSE 82; RESP 16; O2SAT 97
[2023-03-24 23:26] VITALS: BP 163/60; PULSE 84; RESP 15; TEMP 36.9; O2SAT 99
--- NOTE | 2023-03-24 23:36 | PCM.HP.STD ---
[facility] - General General Date of Admission: 03/25/23 Date of Service: 03/24/23 Chief Complaint: Multiple Falls at Home. [facility] Narrative CHRISTINA KUO, is a 67 F with a past medical history of essential hypertension, hyperlipidemia, DM-2; of unknown control, history of DFU, morbid obesity; with BMI of 41.1 this admission, ESRD on HD; M-W-F (still making urine), history of HOFFMAN with Cirrhosis; s/p liver transplant (~2006), history of uterine and cervical cancer, history of chronic diastolic CHF; with preserved LVEF, chronic thrombocytopenia (62-112), psoriasis, RLS, CARSON and OA who presents to [facility] ER complaining of multiple falls at home. Mrs. Kuo reports her symptoms began a few hours prior to arrival patient stating she had to falls where her legs just gave out on her . She then laid on the ground for approximately 20 minutes before her was able to help her to get up. She also states she has numbness and pain of the lateral aspect of the right ankle ankle since her fall. She also admits to hitting her knee on the floor which is also causing her pain. She then took a nap from 3 PM to 7 PM and when she got up and was walking out of the room her knees gave out again causing her to come into the hospital to seek further evaluation and treatment. She denies associated fever, chills, nausea, vomiting, abdominal pain or shortness of breath. In the ER she was noted to have a UA positive for acute cystitis; without hematuria complicated by multiple falls at home due to generalized weakness with ambulatory dysfunction in the setting of morbid obesity; with BMI of 41.1 present on admission further hampering her mobility and she was then admitted to the general medical floor for ongoing care for stay that is expected to be greater than 48 hours. [facility] Medical History Anemia Anemia in chronic kidney disease Anxiety Back pain Blister Cancer Cardiology follow-up encounter Celiac disease Chronic kidney disease, stage 3 Chronic kidney failure Chronic renal failure, stage 5 Cirrhosis COPD (chronic obstructive pulmonary disease) Depression Diabetes Dialysis patient DVT (deep venous thrombosis) DVT (deep venous thrombosis) ESRD (end stage renal disease) Gastric reflux GERD (gastroesophageal reflux disease) History of echocardiogram (~01/22/20) History of edema History of irregular heartbeat History of renal dialysis History of renal disease History of stress test (~12/07/19) History of uterine cancer Hx of Krueger's palsy Hypertension Hypertension Hypothyroidism Infection involving suture with abscess Insulin dependent diabetes mellitus Irregular heart beat [employer] Non-smoker Osteoporosis Pancytopenia Sleep apnea Thyroid disease Uses wheelchair Walker as ambulation aid Wears dentures Wears glasses Home Medications ascorbic acid (vitamin C) 500 mg chewable tablet 1,000 mg PO DAILY supplement 02/20/15 [History Last Taken 09/09/19] cholecalciferol (vitamin D3) 25 mcg (1,000 unit) tablet 1,000 unit PO BID supplement 02/20/15 [History Last Taken 09/09/19] insulin glargine 100 unit/mL (3 mL) subcutaneous pen (Lantus Solostar U-100 Insulin) 34 unit subcut BID blood sugar 05/29/18 [History Last Taken 01/30/23] tacrolimus 1 mg capsule, immediate-release (Prograf) 0.5 mg PO BID REJECTION 09/10/19 [History Last Taken 04/27/21] vitamin B complex 1 tablet PO DAILY SUPPLEMENT 09/10/19 [History Last Taken 09/09/19] carvedilol 25 mg tablet 12.5 mg PO BID heart 02/25/20 [History Last Taken 01/30/23] hydroxyzine HCl 25 mg tablet 25 mg PO BID PRN Itching 05/23/20 [History Last Taken Unknown] ropinirole 1 mg tablet 1 mg PO DAILY restless legs 05/23/20 [History Last Taken 06/16/20] torsemide 20 mg tablet 60 mg PO DAILY FLUID 05/23/20 [History Last Taken Unknown] ropinirole 2 mg tablet,extended release 24 hr 2 mg PO QHS restless legs 06/10/20 [History Last Taken Unknown] sevelamer carbonate 800 mg tablet (Renvela) 1,600 mg PO .TID AC kidney disease 06/10/20 [History Last Taken Unknown] nitroglycerin 0.4 mg sublingual tablet 0.4 mg sublingual Q5M PRN Cardiac/Chest Pain #30 tabs 04/29/21 [Rx Last Taken Unknown] biotin 1 mg capsule 1 mg PO BID supplement 08/11/21 [History Last Taken Unknown] melatonin 3 mg tablet 10 mg PO QHS sleep 08/11/21 [History Last Taken Unknown] sertraline 50 mg tablet (Zoloft) 50 mg PO DAILY mood 08/11/21 [History Last Taken Unknown] albuterol sulfate 90 mcg/actuation aerosol inhaler 2 puff IH Q4H PRN PRN Sob &/Or Wheezing 30 days #8.6 grams 10/25/21 [Rx Last Taken Unknown] diphenoxylate-atropine 2.5 mg-0.025 mg tablet (Lomotil) 1 tab PO TID PRN diarrhea #90 tabs 10/27/21 [Rx Last Taken 12/30/22] hydrocodone-acetaminophen 5-325mg 5mg-325mg 1 tab PO Q6H PRN PRN Pain 3 days #10 TABLETS 04/07/22 [Rx Last Taken Unknown] apremilast 30 mg tablet (Otezla) 30 mg PO DAILY 09/08/22 [History Last Taken Unknown] insulin aspart U-100 100 unit/mL (3 mL) subcutaneous pen (Novolog FlexPen U-100 Insulin aspart) 10 unit subcut TID 09/08/22 [History Last Taken Unknown] gabapentin 100 mg capsule 200 mg PO QHS 12/31/22 [History Last Taken Unknown] levothyroxine 88 mcg tablet 88 mcg PO DAILY 12/31/22 [History Last Taken 01/30/23] midodrine 10 mg tablet 10 mg PO MOWEFR 12/31/22 [History Last Taken Unknown] sucralfate 1 gram tablet (Carafate) 1 g PO BID #30 tabs 12/31/22 [Rx Last Taken Unknown] trazodone 100 mg tablet 200 mg PO QHS 12/31/22 [History Last Taken Unknown] pantoprazole 40 mg tablet,delayed release 40 mg PO BID #60 tabs 01/08/23 [Rx Last Taken Unknown] aspirin 81 mg tablet,delayed release (Adult Aspirin Regimen) 81 mg PO DAILY 01/28/23 [History Last Taken 01/26/23] omega 2-yoa-eka-fish oil 1,200 mg (144 mg-216 mg) capsule (Fish Oil) 1 cap PO DAILY SUPPLEMENT 01/28/23 [History Last Taken Unknown] atorvastatin 40 mg tablet 40 mg PO QHS #30 tabs 02/12/23 [Rx Last Taken Unknown] bisacodyl 10 mg rectal suppository (Dulcolax (bisacodyl)) 10 mg NE DAILY PRN constipation #30 ea 02/12/23 [Rx Last Taken Unknown] baclofen 5 mg tablet 5 mg PO QHS #30 tabs 03/18/23 [Rx Last Taken Unknown] Allergy/AdvReac Type Severity Reaction Status Date / Time amlodipine [From Norvasc] Allergy Severe Hives Verified 03/24/23 20:03 ampicillin sodium Allergy Severe Hives Verified 03/24/23 20:03 [From Unasyn] buspirone HCl [From BuSpar] Allergy Severe Hives Verified 03/24/23 20:03 cefadroxil [From Duricef] Allergy Severe Hives Verified 03/24/23 20:03 lisinopril Allergy Severe Swelling Verified 03/24/23 20:03 naproxen Allergy Severe Hives Verified 03/24/23 20:03 niacin Allergy Severe Hives Verified 03/24/23 20:03 [From Niaspan Extended-Release] sulbactam sodium Allergy Severe Hives Verified 03/24/23 20:03 [From Unasyn] Sulfa (Sulfonamide Allergy Severe Hives Verified 03/24/23 20:03 Antibiotics) cephalexin [From Keflex] Allergy Vomiting Verified 03/24/23 20:03 omeprazole AdvReac Severe Other Verified 03/24/23 20:03 losartan AdvReac Swelling Verified 03/24/23 20:03 Family History Mother Diabetes Anemia Father Hypertension LUNG/RESPIRATORY DISEASE Surgical History History of appendectomy History of cardiac catheterization History of cholecystectomy History of coronary artery stent placement History of coronary artery stent placement History of left knee surgery History of left salpingo-oophorectomy History of liver transplant History of radical hysterectomy History of ventral hernia repair S/P arteriovenous (AV) fistula creation (~06/16/20) Social History housing: apartment current occupational status: disabled Smoking Status: Never smoker substance use type: does not use ROS ROS Narrative Review of systems: Constitutional: Patient admits to generalized weakness but denies fever or chills. Eyes: Patient denies changes in vision or discharge from eyes. ENT: Patient denies runny nose, sore throat or ear pain. Cardiovascular: Patient denies chest pain or palpitations. Respiratory: Patient denies shortness of breath or cough. Gastrointestinal: Patient denies abdominal pain, nausea or vomiting. Musculoskeletal: Patient admits to right shoulder pain, left knee pain and right ankle pain since her fall. Integumentary: Patient denies rash. Neurologic: Patient admits to weakness with legs giving out without warning. She denies headache or paresthesias. Psychiatric: Patient denies uncontrolled depression or anxiety. Hematologic: Patient denies easy bleeding or easy bruisability. Allergic: Patient denies lip swelling, tongue swelling or urticaria. Endocrine: Patient denies polyuria, polydipsia or polyphagia. 14 point review of systems otherwise negative except for positives noted above in HPI. Vital Signs Vital Signs Vital Signs: 03/24/23 20:00 03/24/23 21:15 03/24/23 22:17 Temperature 98.4 F Temperature Source Oral Pulse Rate 77 80 Respiratory Rate 20 H 12 Respiratory Effort Normal Non-Labored Respiratory Depth Normal Respiratory Pattern Normal Blood Pressure 140/50 H 163/60 H Blood Pressure Mean 80 94 Pulse Ox 100 97 95 Oxygen Delivery Method Room Air Room Air Room Air 03/24/23 23:26 Temperature 98.4 F Temperature Source Pulse Rate 84 Respiratory Rate 15 Respiratory Effort Respiratory Depth Respiratory Pattern Blood Pressure 163/60 H Blood Pressure Mean 94 Pulse Ox 99 Oxygen Delivery Method Weight Weight: 246 lb 14.684 oz Body Mass Index (BMI) 41.1 Results Lab / Micro Data 03/24/23 21:03 03/24/23 21:03 Labs: Laboratory Results - last 24 hr 03/24/23 21:03: WBC 3.9 L, RBC 3.38 L, Hgb 10.1 L, Hct 33.3 L, MCV 98.5, MCH 29.9, MCHC 30.3 L, RDW Std Deviation 71.4 H, RDW Coeff of Tami 19.7 H, Plt Count 80 L, MPV 11.1, Immature Gran % (Auto) 0.800, Neut % (Auto) 75.9 H, Lymph % (Auto) 13.2 L, Mcnairy % (Auto) 6.2, Eos % (Auto) 3.9, Baso % (Auto) 0.0, Absolute Neuts (auto) 2.9, Absolute Lymphs (auto) 0.51 L, Nucleated RBC % 0, Differential Comment SCANNED, Diff Path Review May foll, Platelet Estimate MOD DEC, Anisocytosis 1+, Sodium 138, Potassium 3.7, Chloride 99, Carbon Dioxide 33.0 H, Anion Gap 6, BUN 34 H, Creatinine 6.80 H, Estim Creat Clear Calc 10.29, Est GFR (MDRD) Af Amer 8 L, Est GFR (MDRD) Non-Af 7 L, BUN/Creatinine Ratio 5.0 L, Glucose 104, Calcium 9.4, Total Creatine Kinase 75 03/24/23 22:14: Urine Color Yellow, Urine Clarity Cloudy, Urine pH 8.0, Ur Specific Globe 1.015, Urine Protein 100 H, Urine Glucose (UA) Normal, Urine Ketones 5 H, Urine Occult Blood 50 H, Urine Nitrite Negative, Urine Bilirubin Negative, Urine Urobilinogen Normal, Ur Leukocyte Esterase 500 H, Urine RBC 0 SEEN, Urine WBC >100 SEEN, Ur Squamous Epith Cells 0 SEEN, Urine Bacteria 0 SEEN, Urine Mucus 0 SEEN Micro: Microbiology 03/24/23 20:55 Mucosa - Nose SARS-CoV-2, Influenza & RSV (PCR) - Final Rhythm Strip Rhythm Strip: Sinus Rhythm Rate: 82 Ectopy: None Imagaing Radiology Impression Chest X-Ray 03/24/23 20:45 IMPRESSION: No acute cardiopulmonary pathology. Electronically Signed: Reji Sarmiento MD at 22:23 EST , Ankle X-Ray 03/24/23 20:47 IMPRESSION: Bimalleolar sprain. No acute fracture or dislocation Electronically Signed: Reji Sarmiento MD at 22:21 EST , Foot X-Ray 03/24/23 20:47 IMPRESSION: No evidence for acute fracture or dislocation. Apparent metallic foreign bodies within the soft tissues of the plantar surface of the lateral foot. Clinical correlation is recommended Electronically Signed: Reji Sarmiento MD at 22:27 EST Reading Location ID and State: [facility] / [place] Tel [phone], Service support , Shoulder X-Ray 03/24/23 20:47 IMPRESSION: Mild inferior subluxation of the shoulder without evidence for associated fracture Electronically Signed: Reji Sarmiento MD at 22:24 EST Reading Location ID and State: [facility] / [place] Tel [phone], Service support , Knee X-Ray 03/24/23 20:48 IMPRESSION: Degenerative changes. No acute fracture or dislocation Electronically Signed: Reji Sarmiento MD at 22:17 EST Reading Location ID and State: [facility] / [place] Tel [phone], Service support , Brain CT 03/24/23 21:39 IMPRESSION: No acute abnormalities identified. Specifically, no evidence for obstructive hydrocephalus mass or acute bleed. If concern for acute infarct MRI recommended Electronically Signed: Reji Sarmiento MD at 22:30 EST Reading Location ID and State: [facility] / [place] Tel [phone], Service support , Cervical Spine CT 03/24/23 21:39 IMPRESSION: Mild spondylosis. No acute fracture or other significant abnormality. Electronically Signed: Reji Sarmiento MD at 22:32 EST Reading Location ID and State: [facility] / [place] Tel [phone], Service support , Assessment & Plan Assessment/Plan (1) Acute UTI: (2) Multiple falls: (3) Unable to ambulate: (4) End stage renal disease on dialysis: (5) History of liver transplant: PLAN: Plan 1. Acute cystitis; without hematuria - Admit to general medical floor. Continue IV Levaquin begun in the ER given patient's allergy profile and await culture and sensitivity data. 2. Multiple falls at home with imaging negative for acute fracture in the setting of morbid obesity; with BMI of 41.1 this admission complicating #1 - Place on fall precautions and give Tylenol prn for [id number] (level 1-5) pain or fever. 3. Generalized weakness with ambulatory dysfunction arising from #1 & #2 - PT/OT and [facility] to consult and treat on-rounds in the AM with help appreciated in advance as she will likely need some degree of rehabilitation. 4. ESRD on HD; (M-W-) - We will consult nephrology so that her HD can be continued in the AM with help appreciated in advance. 5. History of HOFFMAN with Cirrhosis; s/p liver transplant (~2006) - Noted. Resume home regimen. 6. Chronic thrombocytopenia (62-112) - Platelet level of 80 noted on admission. Check daily CBC to ensure continued stability. 7. History of chronic diastolic CHF; with preserved LVEF - Stable. Continue home medications as previous. 8. Essential hypertension - Continue home medications as previous. 8. Hyperlipidemia - Resume statin. 9. DM-2; of unknown control - ADA diet. FSBS q. AC/HS plus SSI. Check HgbA1c to objectively assess quality of diabetic control. 10. History of DFU - Noted. 11. History of uterine and cervical cancer - Noted. 12. Psoriasis - Stable with no evidence of flare. 13. RLS - Continue Ropinirole. 14. CARSON - Stable. 15. OA - Give Tylenol prn. 16. DVT prophylaxis - SCD's only with thrombocytopenia of 80 present on admission contraindicating treatment with heparin or heparinoids. Total time: Approximately 55 minutes. Charges/Coding Visit Charges Inpatient E&M: 71665 Init Hosp L2
[2023-03-24] MEDS: levoFLOXacin IV 500 MG/100 ML BAG 100 MG IV (23:52)
[2023-03-25] VITALS (12 sets, daily range): BP systolic 126–264; BP diastolic 49–129; PULSE 76–95; RESP 16–20; TEMP 36.5–37.2; O2SAT 94–100; BMI 39.6; BMI 40.4
--- OUTSIDE RECORDS SUMMARY | 2023-03-25 00:38 | XMS RPT_ITS | CCD ---
Author Name Unknown Address [address] [place] [address] Organization [facility] Care Team Providers Care De Icer Finisher Name Role Phone Geremias FOFANA, Jame Primary Care Provider Unavailab [facility], Kim Unavailable Vaughn Reeves RN Unavailable Unavailable Dao FOFANA, Jayamiletkash Unavailable Alicia FOFANA, Vicente Armenta Unavailable Spencer RN, Roxie Unavailable Jame Hunt MD Primary Care Provider Unavailab [facility], Kim Unavailable Vaughn Reeves RN Unavailable [...] Primary Care Unavailable OLDER, SILVA Referring Unavailable [facility], JAME Primary Care Unavailable [facility], JAME Primary Care Unavailable [facility], JAME Primary Care Unavailable JAMES, [facility] Primary Care Unavailable SILVA PLASENCIA Attending Unavailable Allergies Allergy Classification Reported Allergen(s) Allergy Type Date of Onset Reaction(s) Facility (20 sources) Ampicillin / Sulbactam; Translations: [AMPICILLIN-SULB ACTAM] Drug Allergy 8 [facility] (20 sources) busPIRone; Translations: [BUSPIRONE HCL] Drug Allergy 8 [facility] (20 sources) Cefadroxil; Translations: [CEFADROXIL] Drug Allergy 8 [facility] (20 sources) Cephalexin; Translations: [CEPHALEXIN] Drug Allergy 9 [facility] (20 sources) Clindamycin; Translations: [CLINDAMYCIN] Drug Allergy 9 Vomiting [facility] (20 sources) Lisinopril; Translations: [LISINOPRIL] Drug Allergy 5 [facility] (20 sources) Losartan; Translations: [LOSARTAN] Drug Allergy 8 [facility] Work Phone: (20 sources) Naproxen; Translations: [NAPROXEN] Drug Allergy 5 Other: See [facility] (20 sources) Niacin; Translations: [NIACIN] Drug Allergy 9 [facility] (20 sources) Sulfonamides (Antibiotic); Translations: [SULFA (SULFONAMIDE ANTIBIOTICS)] Drug Intolerance 5 [facility] (11 sources) amLODIPine; Translations: [AMLODIPINE] Drug Allergy 8 [facility] (11 sources) busPIRone; Translations: [BUSPIRONE] Drug Allergy 9 [facility] (11 sources) Doxylamine; Translations: [DOXYLAMINE SUCCINATE] Drug Allergy 3 [facility] (11 sources) Omeprazole; Translations: [OMEPRAZOLE] Drug Allergy 8 Other: See Comments [facility] (11 sources) Sulbactam; Translations: [SULBACTAM] Drug Allergy 9 Hives [facility] (11 sources) traMADol; Translations: [TRAMADOL] Drug Allergy 3 Vomiting [facility] Medications Current Medications Medication Drug Class(es) Dates [...] Coronary atherosclerosis; Translations: [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] Onset: 12-13-2020 [...] 04-15-2008 Chronic Other aftercare (1 source) 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; Translations: [Medication management] Onset: [...] 2 05-23-2021 Episodic Other aftercare (1 source) watermaster (current) use of insulin; Translations: [Type 2 [...] 116 kg Lizeth Bey MD Work Phone: [facility] 01-10-2023 14:09-0500 Diastolic blood pressure 66 mm[Hg] Lizeth Bey MD Work Phone: [facility] 01-10-2023 14:09-0500 Heart rate 85 /min Lizeth Bey MD Work Phone: [facility] 01-10-2023 14:09-0500 SaO2% (BldA) [Mass fraction] 98 % Lizeth Bey MD Work Phone: [facility] 01-10-2023 14:09-0500 Systolic blood pressure 156 mm[Hg] Lizeth Bey MD Work Phone: [facility] 01-10-2023 09:23-0500 Body height 166.4 cm Amadeo Karlos INSIDE METER TESTER.SHIP/REC/DOC CONTROL Work Phone: [facility] 01-10-2023 09:23-0500 Body temperature 98.4 [degF] Amadeo Karlos INSIDE METER TESTER.SHIP/REC/DOC CONTROL Work Phone: [facility] 01-10-2023 09:23-0500 Body weight 116.03 kg Amadeo Karlos INSIDE METER TESTER.SHIP/REC/DOC CONTROL Work Phone: [facility] 01-10-2023 09:23-0500 Diastolic blood pressure 45 mm[Hg] Amadeo Karlos INSIDE METER TESTER.SHIP/REC/DOC CONTROL Work Phone: [facility] 01-10-2023 09:23-0500 Heart rate 78 /min Amadeo Karlos INSIDE METER TESTER.SHIP/REC/DOC CONTROL Work Phone: [facility] 01-10-2023 09:23-0500 SaO2% (BldA) [Mass fraction] 100 % Amadeo Karlos INSIDE METER TESTER.SHIP/REC/DOC CONTROL Work Phone: [facility] 01-10-2023 09:23-0500 Systolic blood pressure 144 mm[Hg] Amadeo Karlos INSIDE METER TESTER.SHIP/REC/DOC CONTROL Work Phone: [facility] 01-09-2023 13:51-0500 Body height 166.4 cm Silva Older INSIDE METER TESTER.SHIP/REC/DOC CONTROL Work Phone: [facility] 01-09-2023 13:51-0500 Body temperature 97.2 [degF] Silva Older INSIDE METER TESTER.SHIP/REC/DOC CONTROL Work Phone: [facility] 01-09-2023 13:51-0500 Body weight 115.21 kg Silva Older INSIDE METER TESTER.SHIP/REC/DOC CONTROL Work Phone: [facility] 01-09-2023 13:51-0500 Diastolic blood pressure 60 mm[Hg] Silva Older INSIDE METER TESTER.SHIP/REC/DOC CONTROL Work Phone: [facility] 01-09-2023 13:51-0500 Heart rate 87 /min Silva Older INSIDE METER TESTER.SHIP/REC/DOC CONTROL Work Phone: [facility] 01-09-2023 13:51-0500 Respiratory rate 18 /min Silva Older INSIDE METER TESTER.SHIP/REC/DOC CONTROL Work Phone: [facility] 01-09-2023 13:51-0500 SaO2% (BldA) [Mass fraction] 99 % Silva Older INSIDE METER TESTER.SHIP/REC/DOC CONTROL Work Phone: [facility] 01-09-2023 13:51-0500 Systolic blood pressure 126 mm[Hg] Silva Older INSIDE METER TESTER.SHIP/REC/DOC CONTROL Work Phone: [facility] 12-27-2022 08:02-0400 Body temperature 97.59 [degF] Silva Older INSIDE METER TESTER.SHIP/REC/DOC CONTROL Work Phone: [facility] 12-27-2022 08:02-0400 Diastolic blood pressure 58 mm[Hg] Silva Older INSIDE METER TESTER.SHIP/REC/DOC CONTROL Work Phone: [facility] 12-27-2022 08:02-0400 Heart rate 65 /min Silva Older INSIDE METER TESTER.SHIP/REC/DOC CONTROL Work Phone: [facility] 12-27-2022 08:02-0400 Respiratory rate 16 /min Silva Older INSIDE METER TESTER.SHIP/REC/DOC CONTROL Work Phone: [facility] 12-27-2022 08:02-0400 SaO2% (BldA) [Mass fraction] 93 % Silva Older INSIDE METER TESTER.SHIP/REC/DOC CONTROL Work Phone: [facility] 12-27-2022 08:02-0400 Systolic blood pressure 136 mm[Hg] Silva Older INSIDE METER TESTER.SHIP/REC/DOC CONTROL Work Phone: [facility] 11-26-2022 14:10-0400 Body height 166.4 cm Ramin Denbow PA-C Work Phone: [facility] 11-26-2022 14:10-0400 Body temperature 98.29 [degF] Ramin Denbow PA-C Work Phone: [facility] 11-26-2022 [id number]:100400 Body weight 114.76 kg Ramin Denbow PA-C Work Phone: [facility] 11-26-2022 14:10-0400 Diastolic blood pressure 56 mm[Hg] Ramin Denbow PA-C Work Phone: [facility] 11-26-2022 14:10-0400 Heart rate 83 /min Ramin Denbow PA-C Work Phone: [facility] 11-26-2022 14:10-0400 Respiratory rate 14 /min Ramin Denbow PA-C Work Phone: [facility] 11-26-2022 14:10-0400 SaO2% (BldA) [Mass fraction] 97 % Ramin Denbow PA-C Work Phone: [facility] 11-26-2022 14:10-0400 Systolic blood pressure 136 mm[Hg] Ramin Denbow PA-C Work Phone: [facility] 11-07-2022 12:36-0400 Diastolic blood pressure 46 mm[Hg] Erin Older INSIDE METER TESTER.SHIP/REC/DOC CONTROL Work Phone: [facility] 11-07-2022 12:36-0400 Heart rate 76 /min Erin Older INSIDE METER TESTER.SHIP/REC/DOC CONTROL Work Phone: [facility] 11-07-2022 12:36-0400 Respiratory rate 14 /min Erin Older INSIDE METER TESTER.SHIP/REC/DOC CONTROL Work Phone: [facility] 11-07-2022 12:36-0400 Systolic blood pressure 147 mm[Hg] Erin Older INSIDE METER TESTER.SHIP/REC/DOC CONTROL Work Phone: [facility] 10-27-2022 12:38-0400 Body temperature 98.8 [degF] Sandy Mendes APRN.SHIP/REC/DOC CONTROL Work Phone: [facility] 10-27-2022 12:38-0400 Body weight 114.76 kg Sandy Mendes APRN.SHIP/REC/DOC CONTROL Work Phone: [facility] 10-27-2022 12:38-0400 Diastolic blood pressure 58 mm[Hg] Sandy Mendes APRN.SHIP/REC/DOC CONTROL Work Phone: [facility] 10-27-2022 12:38-0400 Heart rate 75 /min Sandy Mendes APRN.SHIP/REC/DOC CONTROL Work Phone: [facility] 10-27-2022 12:38-0400 Respiratory rate 16 /min Sandy Mendes APRN.SHIP/REC/DOC CONTROL Work Phone: [facility] 10-27-2022 12:38-0400 SaO2% (BldA) [Mass fraction] 98 % Sandy Mendes APRN.SHIP/REC/DOC CONTROL Work Phone: [facility] 10-27-2022 12:38-0400 Systolic blood pressure 148 mm[Hg] Sandy Mendes APRN.SHIP/REC/DOC CONTROL Work Phone: [facility] 07-12-2022 11:23-0400 Body height 166.[address] [facility] 07-12-2022 11:23-0400 Body weight [address] [facility] 05-02-2022 12:30-0500 Body temperature 98.6 [degF] Silva Older INSIDE METER TESTER.SHIP/REC/DOC CONTROL Work Phone: [facility] 05-02-2022 12:30-0500 Body weight 113.4 kg Silva Older INSIDE METER TESTER.SHIP/REC/DOC CONTROL Work Phone: [facility] 05-02-2022 12:30-0500 Diastolic blood pressure 46 mm[Hg] Silva Older INSIDE METER TESTER.SHIP/REC/DOC CONTROL Work Phone: [facility] 05-02-2022 12:30-0500 Heart rate 86 /min Silva Older INSIDE METER TESTER.SHIP/REC/DOC CONTROL Work Phone: [facility] 05-02-2022 12:30-0500 Respiratory rate 16 /min Silva Older INSIDE METER TESTER.SHIP/REC/DOC CONTROL Work Phone: [facility] 05-02-2022 12:30-0500 SaO2% (BldA) [Mass fraction] 97 % Silva Older INSIDE METER TESTER.SHIP/REC/DOC CONTROL Work Phone: [facility] 05-02-2022 12:30-0500 Systolic blood pressure 98 mm[Hg] Silva Older INSIDE METER TESTER.SHIP/REC/DOC CONTROL Work Phone: [facility] 02-05-2022 11:51-0500 Body height 165.1 cm Jame Hunt MD Work Phone: [facility] 02-05-2022 11:51-0500 Body temperature 98.49 [degF] Jame Hunt MD Work Phone: [facility] 02-05-2022 11:51-0500 Body weight 110.22 kg Jame Hunt MD Work Phone: [facility] 02-05-2022 11:51-0500 Diastolic blood pressure 50 mm[Hg] Jame Hunt MD Work Phone: [facility] 02-05-2022 11:51-0500 Heart rate 89 /min Jame Hunt MD Work Phone: [facility] 02-05-2022 11:51-0500 Respiratory rate 18 /min Jame Hunt MD Work Phone: [facility] 02-05-2022 11:51-0500 SaO2% (BldA) [Mass fraction] 96 % Jame Hunt MD Work Phone: [facility] 02-05-2022 11:51-0500 Systolic blood pressure 110 mm[Hg] Jame Hunt MD Work Phone: [facility] 01-29-2022 12:59-0500 Body temperature 98.8 [degF] Silva Older INSIDE METER TESTER.SHIP/REC/DOC CONTROL Work Phone: [facility] 01-29-2022 12:59-0500 Diastolic blood pressure 68 mm[Hg] Silva Older INSIDE METER TESTER.SHIP/REC/DOC CONTROL Work Phone: [facility] 01-29-2022 12:59-0500 Heart rate 84 /min Silva Older INSIDE METER TESTER.SHIP/REC/DOC CONTROL Work Phone: [facility] 01-29-2022 12:59-0500 SaO2% (BldA) [Mass fraction] 98 % Silva Older INSIDE METER TESTER.SHIP/REC/DOC CONTROL Work Phone: [facility] 01-29-2022 12:59-0500 Systolic blood pressure 140 mm[Hg] Silva Older INSIDE METER TESTER.SHIP/REC/DOC CONTROL Work Phone: [facility] 01-01-2022 13:54-0400 Body weight 112.04 kg Silva Older INSIDE METER TESTER.SHIP/REC/DOC CONTROL Work Phone: [facility] 01-01-2022 13:54-0400 Diastolic blood pressure 68 mm[Hg] Silva Older INSIDE METER TESTER.SHIP/REC/DOC CONTROL Work Phone: [facility] 01-01-2022 13:54-0400 Heart rate 80 /min Silva Older INSIDE METER TESTER.SHIP/REC/DOC CONTROL Work Phone: [facility] 01-01-2022 13:54-0400 Respiratory rate 16 /min Silva Older INSIDE METER TESTER.SHIP/REC/DOC CONTROL Work Phone: [facility] 01-01-2022 13:54-0400 Systolic blood pressure 144 mm[Hg] Silav Older INSIDE METER TESTER.SHIP/REC/DOC CONTROL Work Phone: [facility] 12-11-2021 14:24-0400 Diastolic blood pressure 62 mm[Hg] Silva Older INSIDE METER TESTER.SHIP/REC/DOC CONTROL Work Phone: [facility] 12-11-2021 14:24-0400 Heart rate 68 /min Silva Older INSIDE METER TESTER.SHIP/REC/DOC CONTROL Work Phone: [facility] 12-11-2021 14:24-0400 Respiratory rate 16 /min Silva Older INSIDE METER TESTER.SHIP/REC/DOC CONTROL Work Phone: [facility] 12-11-2021 14:24-0400 Systolic blood pressure 132 mm[Hg] Silva Older INSIDE METER TESTER.SHIP/REC/DOC CONTROL Work Phone: [facility] 10-20-2021 08:55-0400 Body weight 114.76 kg Jaci Angelaawick INSIDE METER TESTER.SHIP/REC/DOC CONTROL Work Phone: [facility] 10-20-2021 08:55-0400 Diastolic blood pressure 50 mm[Hg] Jaci Zurawick INSIDE METER TESTER.SHIP/REC/DOC CONTROL Work Phone: [facility] 10-20-2021 08:55-0400 Heart rate 68 /min Jaci Zurawick INSIDE METER TESTER.SHIP/REC/DOC CONTROL Work Phone: [facility] 10-20-2021 08:55-0400 Respiratory rate 18 /min Jaci Zurawick INSIDE METER TESTER.SHIP/REC/DOC CONTROL Work Phone: [facility] 10-20-2021 08:55-0400 Systolic blood pressure 138 mm[Hg] Jaci Zurawick INSIDE METER TESTER.SHIP/REC/DOC CONTROL Work Phone: [facility] 09-28-2021 12:35-0400 Diastolic blood pressure 66 mm[Hg] Silva Older INSIDE METER TESTER.SHIP/REC/DOC CONTROL Work Phone: [facility] 09-28-2021 12:35-0400 Heart rate 72 /min Silva Older INSIDE METER TESTER.SHIP/REC/DOC CONTROL Work Phone: [facility] 09-28-2021 12:35-0400 Respiratory rate 16 /min Silva Older INSIDE METER TESTER.SHIP/REC/DOC CONTROL Work Phone: [facility] 09-28-2021 12:35-0400 Systolic blood pressure 140 mm[Hg] Silva Older INSIDE METER TESTER.SHIP/REC/DOC CONTROL Work Phone: [facility] 08-31-2021 08:32-0400 Body weight 112.95 kg Silva Older INSIDE METER TESTER.SHIP/REC/DOC CONTROL Work Phone: [facility] 08-31-2021 08:32-0400 Diastolic blood pressure 60 mm[Hg] Silva Older INSIDE METER TESTER.SHIP/REC/DOC CONTROL Work Phone: [facility] 08-31-2021 08:32-0400 Heart rate 75 /min Silva Older INSIDE METER TESTER.SHIP/REC/DOC CONTROL Work Phone: [facility] 08-31-2021 08:32-0400 Respiratory rate 16 /min Silva Older INSIDE METER TESTER.SHIP/REC/DOC CONTROL Work Phone: [facility] 08-31-2021 08:32-0400 SaO2% (BldA) [Mass fraction] 98 % Silva Older INSIDE METER TESTER.SHIP/REC/DOC CONTROL Work Phone: [facility] 08-31-2021 08:32-0400 Systolic blood pressure 130 mm[Hg] Silva Older INSIDE METER TESTER.SHIP/REC/DOC CONTROL Work Phone: [facility] 08-25-2021 08:22-0400 Body weight 113.4 kg Silva Older INSIDE METER TESTER.SHIP/REC/DOC CONTROL Work Phone: [facility] 08-25-2021 08:22-0400 Diastolic blood pressure 62 mm[Hg] Silva Older INSIDE METER TESTER.SHIP/REC/DOC CONTROL Work Phone: [facility] 08-25-2021 08:22-0400 Heart rate 72 /min Sliva Older INSIDE METER TESTER.SHIP/REC/DOC CONTROL Work Phone: [facility] 08-25-2021 08:22-0400 Respiratory rate 16 /min Silva Older INSIDE METER TESTER.SHIP/REC/DOC CONTROL Work Phone: [facility] 08-25-2021 08:22-0400 Systolic blood pressure 134 mm[Hg] Silva Older INSIDE METER TESTER.SHIP/REC/DOC CONTROL Work Phone: [facility] 08-14-2021 12:01-0400 Body height 165.1 cm Jame Hunt MD Work Phone: [facility] 08-14-2021 12:01-0400 Body temperature 97.11 [degF] Jame Hunt MD Work Phone: [facility] 08-14-2021 12:01-0400 Diastolic blood pressure 44 mm[Hg] Jame Hunt MD Work Phone: [facility] 08-14-2021 12:01-0400 Heart rate 74 /min Jame Hunt MD Work Phone: [facility] 08-14-2021 12:01-0400 Respiratory rate 16 /min Jame Hunt MD Work Phone: [facility] 08-14-2021 12:01-0400 SaO2% (BldA) [Mass fraction] 100 % Jame Hunt MD Work Phone: [facility] 08-14-2021 12:01-0400 Systolic blood pressure 114 mm[Hg] Jame Hunt MD Work Phone: [facility] 07-03-2021 10:24-0400 Body weight 112.95 kg Josse Lance INSIDE METER TESTER.ZINC MINER BLASTING Work Phone: [facility] 07-03-2021 10:24-0400 Diastolic blood pressure 56 mm[Hg] Josse Lance INSIDE METER TESTER.ZINC MINER BLASTING Work Phone: [facility] 07-03-2021 10:24-0400 Heart rate 76 /min Josse Lance INSIDE METER TESTER.ZINC MINER BLASTING Work Phone: [facility] 07-03-2021 10:24-0400 Respiratory rate 16 /min Josse Lance INSIDE METER TESTER.ZINC MINER BLASTING Work Phone: [facility] 07-03-2021 10:24-0400 Systolic blood pressure 122 mm[Hg] Josse Lance INSIDE METER TESTER.ZINC MINER BLASTING Work Phone: [facility] Encounters Encounter Date Encounter Type Care Provider Facility Start: 02-20-2023 End: 02-21-2023 ambulatory [facility] Facility:[facility] Start: 02-20-2023 End: 02-21-2023 ambulatory [facility] Facility:[facility] Start: 02-11-2023 Telephone encounter Dasha Miller RN (R n) [facility] Procedures Date Procedure Procedure Detail Performing Clinician Start: 01-09-2023 [employer] COVI D-19 VACCINE ( SEASON) AGE 12+ YR Silva Older INSIDE METER TESTER.SHIP/REC/DOC CONTROL Work Phone: Start: 11-07-2022 Dxa bone density ximena dy 1/> sites axial skel Silva Older INSIDE METER TESTER.SHIP/REC/DOC CONTROL Work Phone: Start: 07-12-2022 Antibody screen JAME HUNT Plan of Treatment Date Care Activity Detail Author Start: 12-31-2028 Urine microalbumin profile [facility] Start: 09-13-2027 Colonoscopy COLONOSCOPY [facility] Start: 09-13-2027 COLORECTAL CANCER SCREENING COLORECTAL CANCER SCREENING [facility] Start: 11-07-2025 PNEUMOCOCCAL (4 - PP SV23 if available, else PCV20) PNEUMOCOCCAL (4 - PPSV23 if available, else PCV20) [facility] Start: 11-07-2025 PNEUMOCOCCAL (4 - PP SV23 or PCV20) PNEUMOCOCCAL (4 - PPSV23 or PCV20) [facility] Start: 11-07-2025 PNEUMOCOCCAL: 65+ (4 - PPSV23 if available, else PCV20) PNEUMOCOCCAL: 65+ (4 - PPSV23 if available, else PCV20) [facility] Start: 11-07-2025 PNEUMOCOCCAL: 65+ (4 - PPSV23 or PCV20) PNEUMOCOCCAL: 65+ (4 - PPSV23 or PCV20) [facility] Start: 01-10-2024 Annual PCP Team Replenishment Associate braeden Disease Visit Annual PCP Team Chronic Disease Visit [facility] Start: 01-10-2024 BP Controlled (<130/80) BP Controlle d (<130/80) [facility] Start: 01-10-2024 RSV Vaccine (1 - 1-d ose 60+ series) RSV Vaccine (1 - 1-dose 60+ series) [facility] Immunizations Immunization Date Immunization Notes Care Provider Guido baptiste 01-09-2023 COVID-19 vaccine, ag e 12+ yr, season (PFIZER-BIONTTVbeat) Silva Plasencia INSIDE METER TESTER.SHIP/REC/DOC CONTROL Work Phone: [facility] 12-09-2022 influenza, injectabl e, quadrivalent, preservative free Kel Victoria MD Work Phone: [facility] 10-15-2022 Hepatitis B vaccine (recombinant), CpG adjuvantkit Hunt MD Work Phone: [facility] 08-13-2022 Hepatitis B vaccine (recombinant), CpG jonathan Hunt MD Work Phone: [facility] 07-09-2022 Hepatitis B vaccine (recombinant), Candy Hunt MD Work Phone: [facility] 06-11-2022 Hepatitis B vaccine (recombinant), CpG adjuvanted Jame Hunt MD Work Phone: [facility] 01-15-2022 pneumococcal (PCV20) vaccine, 20 valent (PREVNAR 20) Jame Hunt MD Work Phone: [facility] 11-25-2021 COVID-19 booster vaccine, age 12+ yr, bivalent (Cellufun-BIONTTVbeat) Jame Hunt MD Work Phone: [facility] 11-20-2021 influenza, injectabl e, quadrivalent, contains preservative Jame Hunt MD Work Phone: [facility] 11-20-2021 influenza, injectabl e, quadrivalent, preservative free Jame Hunt MD Work Phone: [facility] 11-20-2021 influenza virus vacc ine, unspecified formulation Jame Hunt MD Work Phone: [facility] 10-20-2021 influenza, seasonal, injectable Jame Hunt MD Work Phone: [facility] 10-11-2021 Hepatitis B vaccine (recombinant), CpG adjuvanted Jame Hunt MD Work Phone: [facility] 09-11-2021 zoster vaccine recombinant Kim La [facility] Work Phone: [facility] 08-15-2021 Hepatitis B vaccine (recombinant), CpG adjuvantkit Hunt MD Work Phone: [facility] 07-10-2021 Hepatitis B vaccine (recombinant), CpG jonathan Hunt MD Work Phone: [facility] 06-15-2021 zoster vaccine recombinant Kim La [facility] Work Phone: [facility] 06-12-2021 Hepatitis B vaccine (recombinant), CpG jonathan Hunt MD Work Phone: [facility] 05-02-2021 COVID-19 vaccine, ag e 12+ yr (PFIZER-BIONTECH - CARNEY TOP) Kim La [facility] Work Phone: [facility] Work Phone: 03-13-2021 Hepatitis B vaccine (recombinant), CpG adjuvanted Jame Hunt MD Work Phone: [facility] 01-09-2021 Hepatitis B vaccine (recombinant), CpG adjuvanted Jame Hunt MD Work Phone: [facility] 12-30-2020 influenza, seasonal, injectable, preservative free Renetta Mendez RN [facility] 12-12-2020 Hepatitis B vaccine (recombinant), CpG adjuvanted Jame Hunt MD Work Phone: [facility] 11-14-2020 Hepatitis B vaccine (recombinant), CpG adjuvanted Jame Hunt MD Work Phone: [facility] 11-14-2020 pneumococcal polysaccharide vaccine, 23 valent Jame Hunt MD Work Phone: [facility] 11-07-2020 hepatitis B vaccine, adult dosage Jame Hunt MD Work Phone: [facility] Work Phone: 11-07-2020 pneumococcal polysaccharide vaccine, 23 valent Jame Hunt MD Work Phone: [facility] Work Phone: 11-01-2020 influenza, injectabl e, quadrivalent, contains preservative Jame Hunt MD Work Phone: [facility] Work Phone: 11-01-2020 Seasonal, quadrivale nt, recombinant, injectable influenza vaccine, preservative free Renetta Mendez RN [facility] 10-31-2020 influenza virus vacc ine, unspecified formulation Renetta Mendez RN [facility] 06-02-2020 COVID-19 original vaccine, age 12+ yr, monovalent (PFIZER-BIONTECH - PURPLE TOP) Renetta Mendez RN [facility] 06-01-2020 COVID-19 vaccine, ag e 12+ yr (Cellufun-BIONTECH - PURPLE TOP) Jame Hunt MD Work Phone: [facility] 12-31-2019 influenza, injectabl e, quadrivalent, preservative free Jame Hunt MD Work Phone: [facility] 12-31-2018 influenza, injectabl e, quadrivalent, contains preservative Jame Hunt MD Work Phone: [facility] 12-31-2018 tetanus and diphther ia toxoids, adsorbed, preservative free, for adult use (5 Lf of tetanus toxoid and 2 Lf of diphtheria toxoid) Jame Hunt MD Work Phone: [facility] 12-16-2017 influenza, seasonal, injectable, preservative free Renetta Mendez [facility] 12-08-2017 influenza virus vacc ine, unspecified formulation Renetta Mendez RN [facility] 12-07-2016 pneumococcal conjuga te vaccine, 13 valent Jame Hunt MD Work Phone: [facility] Work Phone: 11-30-2016 influenza, seasonal, injectable Jame Hunt MD Work Phone: [facility] 05-28-2016 influenza, seasonal, injectable, preservative free Renetta Mendez [facility] 05-28-2016 pneumococcal polysaccharide vaccine, 23 valent Renetta Mendez RN [facility] 01-02-2016 influenza, seasonal, injectable Jame Hunt MD Work Phone: [facility] 01-02-2016 influenza, seasonal, injectable, preservative free Renetta Mendez RN [facility] 12-24-2014 influenza, injectabl e, quadrivalent, preservative free Jame Hunt MD Work Phone: [facility] 12-21-2014 influenza, seasonal, injectable, preservative free Renetta Mendez RN [facility] 12-03-2013 influenza, seasonal, injectable, preservative free Renetta Mendez RN [facility] 12-03-2013 pneumococcal polysaccharide vaccine, 23 valent Jame Hunt MD Work Phone: [facility] 12-03-2013 pneumococcal vaccine , unspecified formulation Renetta Mendez RN [facility] 12-08-2008 influenza virus vacc ine, unspecified formulation Jame Hunt MD Work Phone: [facility] 11-24-2008 pneumococcal polysaccharide vaccine, 23 valent Kim La [facility] Work Phone: [facility] Work Phone: 05-04-2008 haemophilus influenz ae type b vaccine, PRP-T conjugate Jame Hunt MD Work Phone: [facility] 05-04-2008 meningococcal polysaccharide vaccine (MPSV4) Jame Hunt MD Work Phone: [facility] Work Phone: 05-04-2008 pneumococcal polysaccharide vaccine, 23 valent Jame Hunt MD Work Phone: [facility] Work Phone: 02-19-2008 hepatitis A and hepatitis B vaccine Jame Hunt MD Work Phone: [facility] 02-19-2008 tetanus toxoid, redu rios diphtheria toxoid, and acellular pertussis vaccine, adsorbed Jame Hunt MD Work Phone: [facility] 12-11-2007 influenza virus vacc ine, unspecified formulation Jame Hunt MD Work Phone: [facility] 12-31-2006 influenza virus vacc ine, unspecified formulation Jame Hunt MD Work Phone: [facility] Payers Date Payer Category Payer Medicaid [employer]ICA[employer] [id number] 2021-Present [phone] [address] [place] [address] Medicaid [id number] 2021 Medicaid [id number] 2021 Medicaid [id number] 2021 Medicaid [id number] 2021 Medicaid [id number] 2022 Medicare HUMANA MEDICARE HUMANA GOLD PLUS [id number] 2021-Present [phone] [address] [address] [place] [address] O [id number] 2021 Medicare HUMANA MEDICARE HUMANA GOLD PLUS [id number] 2021-Present [phone] [address] [address] [place] [address] O [id number] 2021 Private Health Insurance [id number] Social History Date Type Detail Facility Start: 10-04-2016 End: 02-05-2022 Tobacco smoking status NHIS Never smoked tobacco [facility] Start: 10-04-2016 End: 02-05-2022 Tobacco use and exposure Smokeless tobacco non-user [facility] Start: 04-05-2021 End: 01-10-2023 Alcohol intake Current non-drinker of alcohol (finding) [facility] Start: 05-22-2021 End: 01-22-2022 History SDOH Alcohol Frequency 1 [facility] Start: 05-22-2021 End: 01-22-2022 History SDOH Alcohol Std Drinks 98 [facility] Start: 05-22-2021 End: 01-22-2022 History SDOH Social Connections Phone 5 [facility] Start: 05-22-2021 End: 01-22-2022 History SDOH Social Connections Get Together 2 [facility] Start: 05-22-2021 End: 01-22-2022 History SDOH Social Connections Living 3 [facility] Start: 05-22-2021 History SDOH Financial 4 [facility] Start: 01-11-2019 Education 12 [facility] Start: 09-14-2016 End: 02-05-2022 Tobacco Comment Parents both smoked in childhood home. No household ETS since. [facility] Start: 1955 Sex Assigned At Female [facility] Work Phone: Start: 05-13-2021 End: 02-05-2022 Exposure to SARS-CoV-2 (event) Not sure [facility] Work Phone: Start: 08-15-2021 End: 08-25-2021 Exposure to SARS-CoV-2 (event) Unable to assess [facility] History of tobacco use Passive smoker [facility] Start: 01-22-2022 History SDOH Alcohol Std Drinks 0 [facility] Start: 01-22-2022 End: 07-12-2022 History of Social function [facility] Start: 01-22-2022 End: 07-12-2022 Social connection and isolation panel [facility] Do you belong to any clubs or organizations such as worship groups, unions, fraternal or athletic groups, or school groups? No [facility] Are you now , , , , never or living with a partner? [facility] How often to you hav e a drink containing alcohol? Never [facility] How many standard dr inks containing alcohol do you have on a typical day? Patient does not drink [facility] How hard is it for y ou to pay for the very basics like food, housing, medical care, and heating Somewhat hard [facility] Do you feel stress - tense, restless, nervous, or anxious, or unable to sleep at night because your mind is troubled all the time - these days [OSQ] To some extent [facility] (I/We) worried whedonald er (my/our) food would run out before (I/we) got money to buy more. Sometimes true [facility] The food that (I/we) bought just didn't last, and (I/we) didn't have money to get more. Never true [facility] Start: 09-05-2016 Gender identity Identifies as female gender (finding) [facility] Work Phone: Start: 09-05-2016 Sexual orientation Heterosexual (finding) [facility] Work Phone: Medical Equipment Procedure Code Equipment Code Equipment Origin al Text Equipment Identifier Dates Start: 02-19-2018 End: 08-10-2022 Goals Date Patient Goal Desired Activity /State Personal health goal Clinical Notes 01-02-2020 to 02-11-2023 Telephone Encounter - Haritha Chan - 02/11/2023 2:06 PM ESTTelephone Encounter - Dasha Miller RN - 02/11/2023 1:44 PM ESTTelephone Encounter - Dasha uH RN - 01/17/2023 4:11 PM EST Note Date & Type Note Facility 02-11-2023 Miscellaneous Notes DRY WEIGHT - 109.5 - 02/11/23 [address] [facility]. Haritha Chan documented in this encounter [facility] 02-11-2023 Miscellaneous Notes Called patient to see how they were doing with weight loss. Asked patient to have dialysis center fax a new dry weight to me. In addition told her that I would touch base with her at the end of March with the hopes of getting her presented. Dasha Miller RN February 11, 2023 1:45 PM documented in this encounter [facility] 01-22-2023 Miscellaneous Notes REMEDIOS 01/09/23 NOV Ramin [...] sent. Aleyda Cary documented in this encounter [facility] 01-17-2023 Miscellaneous Notes Spoke with patient who indicated she was cleared by Dr. Bey at [facility] for her EGD. Patient indicated she does not need appointment with Dr. Vargas and wishes to cancel at this time. Will get Dr. Bey to complete EGD clearance form. Appointment cancelled per patient's request. Dasha Hu RN Patient states that she had an appointment at [facility] with Dr Lerner for EGD but [...] is confused. Advised patient that maybe her guest relations manager is sending her for cardiology clearance before the procedure. Patient states that she just had a cardiology clearance on 01/10/[address] Bey for a liver transplant. Patient is not sure why she needs to be seen by Dr. Vargas now. Please contact patient back at [phone]. documented in this encounter [facility] 01-17-2023 History of Present illness Narrative [facility] Telephonic Outreach Provider Action/FYI Contacted for: Routine [...] daily weight at home? No Based on high school foreign language teacher, the following disposition is advised: No symptoms or symptoms present, not severe. Routed to: No Action Needed NOELLE Education Provided this Outreach: No Sienna Miller RN January 17, 2023 10:50 AM documented in this encounter [facility] 01-14-2023 Miscellaneous Notes Patient has been identified [...] Nell Lemons LPN. documented in this encounter [facility] 01-10-2023 Miscellaneous Notes Clearance form received and scanned into chart. Patient has appt with Dr. Vargas on 01/23 at 2:20. Lucrecia Villatoro documented in this encounter [facility] 01-10-[address] [facility] 01-10-2023 History of Present illness Narrative Images from the original note were not included. [facility] [place] [facility] Department of Cardiovascular Medicine SECTION OF CLINICAL CARDIOLOGY OUTPATIENT VISIT DATE January 10, 2023 OUTPATIENT VISIT TYPE CONSULTATION PRIMARY CARE PHYSICIAN: Jame Hunt [address] [place] [address] REFERRING PHYSICIAN Kel Victoria [address] [facility] [id number] CHIEF COMPLAINT: Preop Evaluation HISTORY OF PRESENT [...] CKD (chronic kidney disease) Dialysis M/W/F [facility] COPD (chronic obstructive pulmonary disease) (HCC) Diabetes [...] had complete hysterectomy Psoriasis and similar disorders [place]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 Lagunas [facility] ESOPHAGOGASTRODUODENOSCOPY TRANSORAL DIAGNOSTIC 12/2009 [facility] Janneth ESOPHAGOGASTRODUODENOSCOPY TRANSORAL DIAGNOSTIC 12/2010 [facility] Janneth FISTULA HERNIA REPAIR HX 12/2008 [...] CA Stroke Father Ischemic Heart Disease Father [place] age 70s Diabetes Mother age 76 other [...] tablets by mouth once daily. Blood-Glucose Meter,Continuous ([employer]unders[employer] G7 COOK BARBECUE) mis Use to check blood sugar at [...] by others. CONTACT INFORMATION: Lizeth Bey MD, [facility] Section of Clinical Cardiology [facility] Department of Cardiovascular Medicine [facility] [place] [facility] Desk [id number] [address] Office - [phone] extension [phone] Office Appointments: [phone] extension [phone] Voice recognition software was used in the creation of this document. There may be unintended errors in spelling, grammar, syntax or punctuation present. documented in this encounter [facility] 01-10-[address] [facility] 01-10-2023 History of Present illness Narrative NAME: Christina Guerrier [facility] NO: [id number] REFERRING PHYSICIAN: Kel Victoria PRESENTING COMPLAINT: Pre-kidney [...] 2023 5:39 PM documented in this encounter [facility] 01-09-[address] [facility] 01-09-2023 History of Present illness Narrative CC: Patient presents with: ED Follow-up HPI Christina Guerrier is a 67 year old female who presents today for ER follow-up. Facility: [facility] Er on both 12/26 and 12/31 for abdominal pain and vomiting. Was last seen in this office 12/27 for first ER visit. Had been having difficulty regulating blood sugars with her inability to eat and her insulin. Is on a lower dose of insulin at this time and denies any low blood sugars. Has an EGD in a few weeks at [facility] with Dr. Lerner as there is concern [...] she is requesting a refill on her [place] as it is flaring up and with [...] FLX DX W/COLLJ SPEC WHEN PFRMD 11/29/2011 [facility] Main /Dr. Anderson COLONOSCOPY FLX DX W/COLLJ SPEC WHEN PFRMD 07/2011 Janneth COLONOSCOPY FLX DX W/COLLJ SPEC WHEN PFRMD 09/2011 Dr. Lagunas [facility] ESOPHAGOGASTRODUODENOSCOPY TRANSORAL DIAGNOSTIC 12/2009 [facility] Janneth ESOPHAGOGASTRODUODENOSCOPY TRANSORAL DIAGNOSTIC 12/2010 [facility] Janneth FISTULA HERNIA REPAIR HX 12/2008 [...] mouth once daily. Blood-Glucose Meter,Continuous (DEXCOM G7 COOK BARBECUE) [facility] Use to check blood sugar at least [...] CA Stroke Father Ischemic Heart Disease Father [place] age 70s Diabetes Mother age 76 other [...] Aged Out DATA REVIEWED: Outside chart from [facility] reviewed. ASSESSMENT/PLAN: 1. Epigastric pain - ICD9: [...] No suspicious activity was identified. 01/09/2023 by Sivla Plasencia APRN.CNP 4. Medication management - ICD9: [...] Silva Plasencia APRN.CNP documented in this encounter [facility] 01-09-2023 Miscellaneous Notes Labs faxed to Dr Lerner office. Labs are in process Pt needs lab results that were drawn on 01/08/2023 to be faxed to Dr. Lerner/Dr. Maurer Phone # [phone] documented in this encounter [facility] 01-08-2023 Miscellaneous Notes Samanta with [facility] calls to request most recent labs be faxed to: [phone]. Results faxed as requested. Monica Carter LPN documented in this encounter [facility] 01-04-[address] [facility] 01-04-2023 History of Present illness Narrative Images from the original note were not included. Primary Care Pharmacy Visit CC (Reason for Consult): (E11.00, Z79.4) Type 2 diabetes mellitus with hyperosmolarity 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, with long-term current use of insulin ([facility]) Goal(s): A1c < 8% Last Collaborating Physician Visit: 12/27/22 Christina Guerrier is a 67 year old female presenting for follow up visit telephone call. Patient consents to pharmacy collaborative practice agreement. . At visit with SHIP/REC/DOC CONTROL on 12/26 the following changes were made: instructed Decrease lantus to half dose if not consistently eating. Do NOT take the 25mg novolog if not eating and go by sliding scale only. At last visit with SHIP/REC/DOC CONTROL on 12/27, was instructed that she may [...] finish the cans) Exercise: limited GLYCEMIC CONTROL: [employer]fold CLARITY SHARE CODE - [id number] Past medical history reviewed. MEDICATIONS: Adherence: denies [...] once daily. 270 tablet 3 Blood-Glucose Meter,Continuous ([employer] G7 COOK BARBECUE) [facility] Use to check blood sugar at least [...] was 20 minutes. documented in this encounter [facility] 12-27-[address] [facility] 12-27-2022 History of Present illness Narrative CC: Patient presents with: Recheck: ER follow up, abdominal pain HPI Christina Guerrier is a 67 year old female who presents today for ER follow-up. 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 Lagunas [facility] ESOPHAGOGASTRODUODENOSCOPY TRANSORAL DIAGNOSTIC 12/2009 [facility] Janneth ESOPHAGOGASTRODUODENOSCOPY TRANSORAL DIAGNOSTIC 12/2010 [facility] Janneth FISTULA HERNIA REPAIR HX 12/2008 [...] mouth once daily. Blood-Glucose Meter,Continuous (DEXCOM G7 COOK BARBECUE) [facility] Use to check blood sugar at least [...] CA Stroke Father Ischemic Heart Disease Father [place] age 70s Diabetes Mother age 76 other [...] Aged Out DATA REVIEWED: Outside chart from [facility] reviewed. ASSESSMENT/PLAN: 1. Nausea - ICD9: 787.02, [...] Silva Plasencia APRN.CNP documented in this encounter [facility] 12-26-[address] [facility] 12-24-2022 Miscellaneous Notes Letter sent to patient ness per her request. Please print and process Patient calls to request a letter for [facility]. Patient reports that she receives gas vouchers to get to doctor appointments here and at main campus. The letter needs to state that patient is an established patient with the [facility] and needs to be addressed to Poly Shafer at [facility] [facility] [employer] [facility]. Patient requests it be uploaded to when completed. Janelle Crocker RN documented in this encounter [facility] 12-20-[address] [facility] 12-20-2022 History of Present illness Narrative CDM [...] daily weight at home? No Based on high school foreign language teacher, the following disposition is advised: No symptoms or symptoms present, not severe. Routed to: No Action Needed NOELLE Education Provided this Outreach: No Sienna Miller RN December 20, 2022 1:27 PM documented in this encounter [facility] 12-03-[address] [facility] 11-26-[address] [facility] 11-26-[address] 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 Lagunas [facility] ESOPHAGOGASTRODUODENOSCOPY TRANSORAL DIAGNOSTIC 12/2009 [facility] Janneth ESOPHAGOGASTRODUODENOSCOPY TRANSORAL DIAGNOSTIC 12/2010 [facility] Janneth FISTULA HERNIA REPAIR HX 12/2008 [...] tablets by mouth once daily. Blood-Glucose Meter,Continuous ([employer] G7 COOK BARBECUE) [facility] Use to check blood sugar at least [...] [place] Stroke Father Ischemic Heart Disease Father [place] age 70s Diabetes Mother age 76 other [...] therapy advised. Pain control addressed (already has [place] rx from hip pain appt) Will be [...] Ramin Mack PA-C documented in this encounter [facility] 11-22-[address] [facility] 11-22-2022 History of Present illness Narrative CDM [...] daily weight at home? No Based on high school foreign language teacher, the following disposition is advised: No symptoms or symptoms present, not severe. Routed to: No Action Needed NOELLE Education Provided this Outreach: No Sienna Miller RN November 22, 2022 10:32 AM documented in this encounter [facility] 11-20-2022 Miscellaneous Notes REMEDIOS 11/07/22 NOV 11/26/22 [...] Litzy Esparza Pss documented in this encounter [facility] 11-07-[address] [facility] 11-07-[address] [facility] 11-07-[address] [facility] 11-07-2022 History of Present illness Narrative CC: [...] night and keeping her awake Treated with [place], with minor relief of symptoms. 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 Lagunas [facility] ESOPHAGOGASTRODUODENOSCOPY TRANSORAL DIAGNOSTIC 12/2009 [facility] Janneth ESOPHAGOGASTRODUODENOSCOPY TRANSORAL DIAGNOSTIC 12/2010 [facility] Janneth FISTULA HERNIA REPAIR HX 12/2008 [...] mouth once daily. Blood-Glucose Meter,Continuous (DEXCOM G7 COOK BARBECUE) misc Use to check blood sugar at [...] each sensor change. Blood-Glucose Meter,Continuous (DEXCOM G6 COOK BARBECUE) misc Use to check blood sugar at [...] [place] Stroke Father Ischemic Heart Disease Father [place] age 70s Diabetes Mother age 76 other [...] activity was identified. 11/07/2022 by Erin Plasencia APRN.SHIP/REC/DOC CONTROL Follow-up and further recommendations pending results of [...] Patient agreeable to treatment plan. Erin Plasencia APRN.SHIP/REC/DOC CONTROL documented in this encounter [facility] 11-07-2022 History of Present illness Narrative Radiology [...] 2022 11:14 AM documented in this encounter [facility] 10-28-2022 Miscellaneous Notes Pt was notified of the results. Pt verbalized understanding. Nasra Becerril MA Please advise patient that test results came back negative. Rash is not shingles. Should follow-up if signs and symptoms seem to be getting worse not better. documented in this encounter [facility] 10-27-[address] [facility] 10-27-2022 History of Present illness Narrative Images [...] history is provided by the patient. No english as a second language instructor was used. Rash Review of Systems Constitutional: [...] CKD (chronic kidney disease) Dialysis M/W/F [facility] COPD (chronic obstructive pulmonary disease) (HCC) Diabetes mellitus without mention of complication Diabetic polyneuropathy (HCC) 02/04/2017 Disorder of thyroid DVT (deep venous thrombosis) (HCC) Esophageal reflux Hammer toes, bilateral 11/30/2016 History of transfusion Hypertension Incisional hernia 12/30/2008 Liver replaced by transplant ([facility]) 2008 - Cirrhosis s/p OLT 2008 - [...] W/COLLJ SPEC WHEN PFRMD 09/2011 Dr. Lagunas [facility] ESOPHAGOGASTRODUODENOSCOPY TRANSORAL DIAGNOSTIC 12/2009 [facility] Janneth ESOPHAGOGASTRODUODENOSCOPY TRANSORAL DIAGNOSTIC 12/2010 [facility] Janneth FISTULA HERNIA REPAIR HX 12/2008 [...] mouth once daily. Blood-Glucose Meter,Continuous (DEXCOM G7 COOK BARBECUE) [facility] Use to check blood sugar at least [...] each sensor change. Blood-Glucose Meter,Continuous (DEXCOM G6 COOK BARBECUE) [facility] Use to check blood sugar at least four (4) times daily. Blood-Glucose Sensor (DEXCOM G6 SENSOR) brady Apply new sensor every ten (10) days to abdomen. FAMILY HISTORY Problem Relation Age of Onset Cancer Father age 73 lung CA Stroke Father Ischemic Heart Disease Father [place] age 70s Diabetes Mother age 76 other [...] Sandy Mendes APRN.NATHALY documented in this encounter [facility] 10-26-[address] [facility] 10-26-2022 History of Present illness Narrative [facility] Telephonic Outreach Provider Action/FYI Contacted for: Routine [...] daily weight at home? No Based on high school foreign language teacher, the following disposition is advised: No symptoms or symptoms present, not severe. Routed to: No Action Needed NOELLE Education Provided this Outreach: No Sienna Miller RN October 26, 2022 1:27 PM documented in this encounter [facility] 10-26-[address] [facility] 10-23-2022 Miscellaneous Notes Pt. ret'd call and was r/s for 10/26/22. 1st attempt to reschedule. Called and lmom. Primary Care Pharmacy Rescheduling Outreach Call center, please contact patient and reschedule telephone and virtual visit for Diabetes management within ~4 week(s). (Visit length: 30 minutes) Thank you, Charlotte Gurrola RPh 10/22/2022 4:11 PM documented in this encounter [facility] 10-22-[address] [facility] 09-28-[address] [facility] 09-19-2022 Miscellaneous Notes Leighann from patients dialysis center calls in requesting to speak with a coordinator regarding her restrictions. Patient is saying that she cannot have any vinegar and they are questioning the reasoning why. She can be reached at [phone]. documented in this encounter [facility] 08-31-2022 Note [facility] [facility] 08-29-[address] [facility] 08-29-[address] [facility] 08-29-2022 History of Present illness Narrative The [...] pounds in a week? No Based on high school foreign language teacher, the following disposition is advised: No symptoms or symptoms present, not severe. Routed to: No Action Needed NOELLE Education Provided this Outreach: No Dasha Colvin RN August 29, 2022 4:27 PM documented in this encounter [facility] 08-29-2022 Miscellaneous Notes Addended by: ERIN PLASENCIA on: 08/29/2022 05:36 PM Modules accepted: Orders documented in this encounter [facility] 08-28-[address] [facility] 08-28-2022 History of Present illness Narrative [facility] Telephonic Outreach Provider Action/HARIKA Made call #1. Someone picked up phone and hung it up. End outreach Contacted for: Routine Telephonic Outreach Contact made with patient: No, left message. Someone answered and hung up. Dasha Colvin RN August 28, 2022 2:50 PM documented in this encounter [facility] 08-07-[address] [facility] 08-07-2022 History of Present illness Narrative Images [...] made: No medication changes made. At last BIMA message on 07/24/22, lowered insulin dose due [...] 270 tablet 3 Blood-Glucose Meter,Continuous (DEXCOM G7 COOK BARBECUE) [facility] Use to check blood sugar at least [...] 1 Each 3 Blood-Glucose Meter,Continuous (DEXCOM G6 COOK BARBECUE) misc Use to check blood sugar at [...] was 18 minutes. documented in this encounter [facility] 07-17-[address] [facility] 07-13-[address] [facility] 07-13-[address] - 07/13/2022 [...] dialysis RD 6. Consider calorie intake of 4504-3713 calories for weight loss (RMR - 300-500 calories) documented in this encounter [facility] 07-12-[address] [facility] 07-12-[address] [facility] 07-12-2022 History of Present illness Narrative [facility] [place] [facility] Transplant Evaluation CC: Consultation for Kidney transplant evaluation. 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 Lagunas [facility] ESOPHAGOGASTRODUODENOSCOPY TRANSORAL DIAGNOSTIC 12/2009 [facility] Janneth ESOPHAGOGASTRODUODENOSCOPY TRANSORAL DIAGNOSTIC 12/2010 [facility] Janneth FISTULA HERNIA REPAIR HX 12/2008 [...] mouth once daily. Blood-Glucose Meter,Continuous (DEXCOM G7 COOK BARBECUE) [facility] Use to check blood sugar at least [...] each sensor change. Blood-Glucose Meter,Continuous (DEXCOM G6 COOK BARBECUE) misc Use to check blood sugar at [...] [place] Stroke Father Ischemic Heart Disease Father [place] age 70s Diabetes Mother age 76 other [...] a prior CC echocardiographic exam for comparison [facility]:04/04/2021 Impression: Severe disease of the proximal [...] Other chronic findings, as above. PAP Test: [facility] Mammogram: 05/08/2022 IMPRESSION: NEGATIVE There is no [...] date 11/25/2021, 05/02/2021 , 06/02/2020 Reid Honeycutt, bar manager: I have seen the patient and confirmed [...] Kel Victoria MD documented in this encounter [facility] 07-12-[address] [facility] 07-12-2022 History of Present illness Narrative Nutrition [...] dialysis RD 6. Consider calorie intake of 7911-8630 calories for weight loss (RMR - 300-500 [...] likes at dialysis. It is sold on [employer] and she is gong to look into [...] burgers. Snack - frozen fruit Beverages - Gilchrist crush 0; water with pills; 1-2 boosts daily; Take Out: 2x/week: fish sandwich from [employer]. Alcohol- not assessed. Vitamins/Supplements - vitamin b [...] 11:23 AM PAGER: documented in this encounter [facility] 07-12-[address] [facility] 07-10-2022 Miscellaneous Notes Patient calls and notified that provider had sent hydrocortisone cream to [facility] pharmacy for itching. Patient voiced understanding. Yesica [...] time. Patient is requesting a script for [place] in place of the ultram. Christina Padmini BondsChey is calling Jame Hunt MD today with concern since being prescribed Tramadol she is having itching, stated on her back. Please call Patient. Patient has been identified by name and birthdate. Duration of symptoms: N/A Person calling: self Call patient at: on cell [phone] (home) [phone] (cell) Was an appointment scheduled: No Closing statement: Symptom Call: Thank you for calling [facility], your call is very important. A nurse will call in approximately 2-4 hours during business hours. If this is an emergency, please contact 911. Aleyda Cary documented in this encounter [facility] 07-05-[address] [facility] 07-05-2022 History of Present illness Narrative PRE-TRANSPLANT [...] about Kidney Allocation Policy -Directions to access [facility]'s data through the SRTR website. -Informed Consent for Transplant Program Participation patient education packet -National Kidney Registry pamphlet -Covid-19 Vaccination for Transplant Candidates Method of Instruction: Group class instruction Verbal instruction Computer Patient/Family Response: Patient asked appropriate questions, which were answered satisfactorily. Follow-Up Plan: Contact information given. Referral/Recommendation: None Renetta Mendez RN Pre-Exterminator Termite documented in this encounter [facility] 06-26-[address] [facility] 06-26-2022 History of Present illness Narrative Images [...] admits to missed doses Was traveling to [place] over the weekend and had some missed dose of insulin Has not started to use the sliding scale insulin with Novolog, taking 25 units with meals Continues to have intermittent connection with phone and sensor, Dexcom G7 was ordered and she is awaiting to hear from DME about approval Will be undergoing kidney transplant evaluation GLYCEMIC CONTROL: - Share code: [id number] CGM Report ROS: As above. Patient denies [...] 270 tablet 3 Blood-Glucose Meter,Continuous (DEXCOM G7 COOK BARBECUE) [facility] Use to check blood sugar at least [...] 1 Each 3 Blood-Glucose Meter,Continuous (DEXCOM G6 COOK BARBECUE) misc Use to check blood sugar at [...] coma, with long-term current use of insulin ([facility]) - ICD9: 250.20, V58.67, ICD10: E11.00, Z79.4 [...] was 20 minutes. documented in this encounter [facility] 06-21-2022 Miscellaneous Notes Patient notified. Verbalized understanding. [...] for the weekend and would like to fruit picker [place]. Patient has been identified by [...] the preferred pharmacy. documented in this encounter [facility] 06-14-[address] [facility] 06-14-2022 History of Present illness Narrative CDM [...] daily weight at home? 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 Routed to: No Action Needed NOELLE Education Provided this Outreach: No Roxie Palmer RN June 14, 2022 2:38 PM documented in this encounter [facility] 06-12-2022 Miscellaneous Notes Patient requesting all her meds be sent to [facility] b/c they will send them to her home. Pended all accept the torsemide 20 mg 2 tabs daily- patient reports Dr. Dc, turbine mechanic has been having her take 3 tabs daily to equal 60 mg daily for the past week. Asking pcp to write new rx and send to [facility]. Patient has been identified by [...] Estefani Patel RN documented in this encounter [facility] 05-30-[address] [facility] 05-29-[address] [facility] 05-29-2022 Miscellaneous Notes Patient currently receives Dexcom G6 from DME ([facility]). She is interested in upgrading to the Dexcom G7 model. We discussed that Medicare only covers a new reader every 5 years but she may be able to get Dexcom G7 sensors to use with phone. [facility] D[facility] needs printed orders for Dexcom G7 model. Please process pended orders as print rx. Once PCP has signed, please fax to [facility] at [phone]. Pending orders: Requested Prescriptions Pending Prescriptions Disp Refills Blood-Glucose Meter,Continuous (DEXCOM G7 COOK BARBECUE) misc 1 Each 0 Sig: Use to [...] with any questions. documented in this encounter [facility] 05-29-2022 History of Present illness Narrative Images from the original note were not included. Primary Care Pharmacy Visit CC (Reason for Consult): Diabetes Goal: A1c < 8% Collaborating Provider: Dr. Hunt Last Collaborating Physician/INSIDE METER TESTER Visit: 05/02/22 Christina Guerrier is a 66 [...] your physician GLYCEMIC CONTROL: - Share code: [id number] CGM Report Summary of CGM Findings: 1- [...] [facility] Rx coverage: [employer] H[employer] Medicare + [facility] Affordability: no issues Diabetes supplies: [employer] Organization System: pill box ACTIVE PROBLEM LIST [...] (Hcc) Krueger's Palsy Coronary Artery Disease Involving [place] Coronary Artery of [place] Heart Without Angina Pectoris Stable Angina (Hcc) [...] had complete hysterectomy Psoriasis and similar disorders [place]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 Blood-Glucose Meter,Continuous (DEXCOM G6 COOK BARBECUE) [facility] Use to check blood sugar at least [...] microalbuminuria, with long-term current use of insulin ([facility]) - ICD9: 250.40, 791.0, V58.67, ICD10: E11.29, [...] Instructed patient to check with her DME ([facility] medical) on when she can get her [...] was 22 minutes. documented in this encounter [facility] 05-23-[address] [facility] 05-23-2022 Miscellaneous Notes Spoke to pt to let her know the orders have been placed for her evaluation and a shop technician should be contacting her within a week. I advised her to lose weight with her current BMI 42, she would not be able to be listed until 40. She said her ht is 5'6 not 5'4.5 . I said we would need to remeasure her as there are different hts in her chart documented in this encounter [facility] 05-23-2022 History of Present illness Narrative HX: [...] HD started 10-19-20 Name of Dialysis Facility: [facility] Diabetes Yes. Diagnosed at age 52 [...] appointment Renetta Mendez RN Pre-Kidney & Pancreas Exterminator Termite [facility] documented in this encounter [facility] 05-17-[address] [facility] 05-16-2022 Miscellaneous Notes Patient has been identified [...] Litzy Esparza Pss documented in this encounter [facility] 05-14-[address] [facility] 05-14-2022 History of Present illness Narrative Images from the original note were not included. Primary Care Pharmacy Visit CC (Reason for Consult): Diabetes Goal: A1c < 8% Collaborating Provider: Dr. Hunt Last Collaborating Physician/INSIDE METER TESTER Visit: 05/02/22 Christina Guerrier is a 66 year old female presenting for follow up visit by telephone. Patient consents to pharmacy collaborative practice agreement. At last visit with SHIP/REC/DOC CONTROL on 05/02/22 the following changes were made: [...] missed doses Pharmacy: [facility] Rx coverage: [facility] Medicare + [facility] Affordability: no issues Diabetes supplies: [employer] Organization System: pill box ACTIVE PROBLEM LIST [...] (Hcc) Krueger's Palsy Coronary Artery Disease Involving [place] Coronary Artery of [place] Heart Without Angina Pectoris Stable Angina (Hcc) [...] CKD (chronic kidney disease) Dialysis M/W/F [facility] COPD (chronic obstructive pulmonary disease) (HCC) Diabetes [...] had complete hysterectomy Psoriasis and similar disorders [place]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 Blood-Glucose Meter,Continuous (DEXCOM G6 COOK BARBECUE) [facility] Use to check blood sugar at least [...] 41.60 kg/(m^2) LABS: ESRD on dialysis on [facility] Liver transplant list Lab Results Component Value [...] microalbuminuria, with long-term current use of insulin ([facility]) - ICD9: 250.40, 791.0, V58.67, ICD10: E11.29, [...] was 25 minutes. documented in this encounter [facility] 05-08-[address] [facility] 05-08-2022 History of Present illness Narrative Radiology [...] DATA: Not applicable SIGNED BY: Josephine Segundo Iotera May 08, 2022 7:28 AM documented in this encounter [facility] 05-03-[address] [facility] 05-03-2022 History of Present illness Narrative This is a virtual visit using BIMA video visit. 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 Lagunas [facility] ESOPHAGOGASTRODUODENOSCOPY TRANSORAL DIAGNOSTIC 12/2009 [facility] Janneth ESOPHAGOGASTRODUODENOSCOPY TRANSORAL DIAGNOSTIC 12/2010 [facility] Janneth FISTULA HERNIA REPAIR HX 12/2008 [...] [place] Stroke Father Ischemic Heart Disease Father [place] age 70s Diabetes Mother age 76 other [...] each sensor change. Blood-Glucose Meter,Continuous (DEXCOM G6 COOK BARBECUE) [facility] Use to check blood sugar at least [...] which included preparing to see the patient, [id number] patient care, completing clinical documentation, obtaining and/or reviewing separately obtained history, performing a medically appropriate examination, counseling and educating the patient/family/caregiver, and ordering medications, tests, or procedures. Yesica Us PA-C May 03, 2022 11:37 AM documented in this encounter [facility] 05-02-2022 Miscellaneous Notes done Amber Jones RN, BSN Post Liver Exterminator Termite Patient called she went to get labs Today and her labs are , requesting her Coordinator to Update the orders. documented in this encounter [facility] 05-02-[address] [facility] 05-02-2022 History of Present illness Narrative CC: [...] has had a decreased appetite. Went to [facility] ER last week from dialysis for left shoulder pain with negative xrays and unremarkable lab work. Still with diarrhea has not seen GI yet and colestipol is on back order. Will have this 1-2 times a day pure liquid and will take immodium if needed. Sometimes will get a sharp pain to her right religion with moving her head that is only [...] W/COLLJ SPEC WHEN PFRMD 09/2011 Dr. Lagunas [facility] ESOPHAGOGASTRODUODENOSCOPY TRANSORAL DIAGNOSTIC 12/2009 [facility] Janneth ESOPHAGOGASTRODUODENOSCOPY TRANSORAL DIAGNOSTIC 12/2010 [facility] Janneth FISTULA HERNIA REPAIR HX 12/2008 [...] microalbuminuria, with long-term current use of insulin ([facility]) - Primary E11.29, R80.9, Z79.4^Disp: 6000 mL^Rfl: [...] 1 Each^Rfl: 3 Blood-Glucose Meter,Continuous (DEXCOM G6 COOK BARBECUE) misc^Use to check blood sugar at least [...] [place] Stroke Father Ischemic Heart Disease Father [place] age 70s Diabetes Mother age 76 other [...] Aged Out DATA REVIEWED: Outside chart from [facility] reviewed. ASSESSMENT/PLAN: 1. Type 2 diabetes mellitus [...] Silva Plasencia APRN.CNP documented in this encounter [facility] 04-24-2022 Miscellaneous Notes Called and spoke with patient regarding kidney transplant, intake completed, and to nurse coordinator for review. Haritha Rocio Pre- transplant intake form Date: 04/24/2022 Spoke with: Patient : 1955 EMAIL: Learndot Jonnie M/F: F Work Status: Not working; [...] Previous Transplant? Yes Date/Where at? 05/05/2008 at [facility] Nephrectomy? No Evaluation elsewhere? Listed? Yes at [facility]; No Kidney Biopsy? Liver Biopsy? No Yes - on txp at [facility] Cirrhosis? Hepatitis? HIV? Cancer? Yes - [place] before Txp No No Yes-1998 Uterus and Cervix; had full hysterectomy; No chemo or radiation Diabetes 1 or 2? 2 Age diagnosed? 2007 Insulin dependent? Yes Hypoglycemic unawareness? No Hypertension? CAD? [place]? CABG/STENTS? Yes No No Yes - Hrt Stents 3x - in 2021 at [facility]. Stress? Echo? Cath? Yes Yes Yes [...] office. Haritha Chan documented in this encounter [facility] 04-20-[address] [facility] 04-20-2022 History of Present illness Narrative INSIGHT [...] like to speak with a social work team automobile assembler to help give you support for any [...] you up for automated weekly questionnaires through BIMA. This is an easy way for us [...] and End outreach. documented in this encounter [facility] 04-19-[address] [facility] 04-19-2022 History of Present illness Narrative INSIGHT CDM TELEPHONIC OUTREACH Provider Action/FYI: voicemail Contact made with patient: No - Left message Hello my name is Roxie Palmer RN your Service Desk Technician from the [facility] I am calling today for your monthly check in. I am sorry I missed your call. I will reach out to you again tomorrow. Enter next patient outreach date using the Track Pt Outreach. End outreach. documented in this encounter [facility] 04-19-2022 Miscellaneous Notes Patient has been identified by name and date of : Yes Patient phones for refill(s): Requested Prescriptions Pending Prescriptions Disp Refills insulin aspart U-100 (NOVOLOG U-100 INSULIN ASPART) 100 unit/mL 0 Sig: Inject 22 units before breakfast, 26 units before lunch, and 22 units before dinner as directed. Type 2 diabetes mellitus with microalbuminuria, with long-term current use of insulin ([facility]) - Primary E11.29, R80.9, Z79.4 Date of last office visit in primary care: 09/07/2021 Please advise. Thank you. Beth Pedersen LPN documented in this encounter [facility] 03-22-[address] [facility] 03-22-[address] [facility] 03-19-2022 Miscellaneous Notes Patient has been identified [...] medication: Not applicable Please advise. Thank you. Franci Quinn LPN documented in this encounter [facility] 02-22-2022 History of Present illness Narrative INSIGHT [...] like to speak with a social work team automobile assembler to help give you support for any [...] you up for automated weekly questionnaires through BIMA. This is an easy way for us [...] my name is Roxie Palmer RN your Service Desk Technician from the [facility] I am calling today for your monthly check in. I am sorry I missed your call. I will reach out to you again tomorrow. Enter next patient outreach date for the following business day using the Track Pt Outreach. End outreach. documented in this encounter [facility] 02-09-2022 Miscellaneous Notes Patient went to ED [...] Janelle Crocker RN documented in this encounter [facility] 02-05-2022 Miscellaneous Notes Patient came into office [...] calling: self Call patient at: on cell [phone] (home) [phone] (cell) Was an appointment scheduled: No Closing statement: Symptom Call: Thank you for calling [facility], your call is very important. A nurse will call in approximately 2-4 hours during business hours. If this is an emergency, please contact 911. Aleyda Cary documented in this encounter [facility] 02-05-2022 History of Present illness Narrative Reason [...] W/COLLJ SPEC WHEN PFRMD 09/2011 Dr. Lagunas [facility] ESOPHAGOGASTRODUODENOSCOPY TRANSORAL DIAGNOSTIC 12/2009 [facility] Janneth ESOPHAGOGASTRODUODENOSCOPY TRANSORAL DIAGNOSTIC 12/2010 [facility] Janneth FISTULA HERNIA REPAIR HX 12/2008 [...] [place] Stroke Father Ischemic Heart Disease Father [place] age 70s Diabetes Mother age 76 other [...] G6 TRANSMITTER) brady Blood-Glucose Meter,Continuous (DEXCOM G6 COOK BARBECUE) [facility] Blood-Glucose Sensor (DEXCOM G6 SENSOR) brady triamcinolone [...] Jame Hunt MD documented in this encounter [facility] 02-01-2022 Miscellaneous Notes Pt notified and voiced [...] file. Please advise. documented in this encounter [facility] 01-29-2022 History of Present illness Narrative CC: [...] tylenol and diclofenac gel without any help. [place] helps when pain is severe. 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 Lagunas [facility] ESOPHAGOGASTRODUODENOSCOPY TRANSORAL DIAGNOSTIC 12/2009 [facility] Janneth ESOPHAGOGASTRODUODENOSCOPY TRANSORAL DIAGNOSTIC 12/2010 [facility] Janneth FISTULA HERNIA REPAIR HX 12/2008 [...] microalbuminuria, with long-term current use of insulin ([facility]) - Primary E11.29, R80.9, Z79.4^Disp: ^Rfl: 0 [...] 1 Each^Rfl: 3 Blood-Glucose Meter,Continuous (DEXCOM G6 COOK BARBECUE) misc^Use to check blood sugar at least [...] [place] Stroke Father Ischemic Heart Disease Father [place] age 70s Diabetes Mother age 76 other [...] Silva Plasencia APRN.CNP documented in this encounter [facility] 01-26-2022 History of Present illness Narrative INSIGHT CDM TELEPHONIC OUTREACH Provider Action/FYI: Cramping in her hands happens frequently-no difference in dialysis days or non-dialysis days Sometimes hard to fruit picker a jug of milk Using arthritis [...] like to speak with a social work team automobile assembler to help give you support for any [...] you up for automated weekly questionnaires through BIMA. This is an easy way for us [...] and End outreach. documented in this encounter [facility] 01-24-2022 Miscellaneous Notes Patient called to request the medication again. Remedios--01/01/22 Nov--01/29/22 Last refill--10/20/21 60 with 2 refills Last labs--01/16/22 documented in this encounter [facility] 01-01-2022 History of Present illness Narrative INSIGHT CDM TELEPHONIC OUTREACH Provider Action/FYI: 2nd attempt, left another message Contact made with patient: No - Left message Hello my name is Roxie Palmer RN your Service Desk Technician from the [facility] I am calling today for your monthly check in. I am sorry I missed your call. I will reach out to you again next month. End outreach. 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 No colitis. Poor rectal sphincter tone. Referred to Oriana Newberry. COLONOSCOPY FLX DX W/COLLJ SPEC WHEN PFRMD 11/29/2011 [facility] Main /Dr. Anderson COLONOSCOPY FLX DX W/COLLJ SPEC WHEN PFRMD 07/2011 Janneth COLONOSCOPY FLX DX W/COLLJ SPEC WHEN PFRMD 09/2011 Dr. Lagunas [facility] ESOPHAGOGASTRODUODENOSCOPY TRANSORAL DIAGNOSTIC 12/2009 [facility] Janneth ESOPHAGOGASTRODUODENOSCOPY TRANSORAL DIAGNOSTIC 12/2010 [facility] Janneth FISTULA HERNIA REPAIR HX 12/2008 [...] microalbuminuria, with long-term current use of insulin ([facility]) - Primary E11.29, R80.9, Z79.4^Disp: ^Rfl: 0 blood sugar diagnostic (BLOOD GLUCOSE TEST) test strip^Test blood sugar(s) 5 times daily. Dx: Type 2 DM - Controlled E11.9 Insulin: Yes^Disp: 450 Strip^Rfl: 3 tacrolimus IR (PROGRAF) 0.5 mg capsule^TAKE 1 CAPSULE TWICE DAILY^Disp: 180 capsule^Rfl: 3 Blood-Glucose Transmitter (Twelvefold G6 TRANSMITTER) brady^Apply new transmitter every 90 days. Clean transmitter with an alcohol swab with each sensor change.^Disp: 1 Each^Rfl: 3 Blood-Glucose Meter,Continuous (DEXCOM G6 COOK BARBECUE) misc^Use to check blood sugar at least [...] CA Stroke Father Ischemic Heart Disease Father [place] age 70s Diabetes Mother age 76 other [...] Silva Plasencia APRN.NATHALY documented in this encounter [facility] 12-29-2021 History of Present illness Narrative INSIGHT CDM TELEPHONIC OUTREACH Provider Action/FYI: voicemail Contact made with patient: No - Left message Hello my name is Roxie Palmer RN your Service Desk Technician from the [facility] I am calling today for your monthly check in. I am sorry I missed your call. I will reach out to you again tomorrow. Enter next patient outreach date for the following business day using the Track Pt Outreach. End outreach. documented in this encounter [facility] 12-13-2021 Miscellaneous Notes Patient notified and verbalized understanding. Franci Quinn LPN Silva Plasencia APRN.SHIP/REC/DOC CONTROL OBI 7:48 PM Note Please let patient [...] review for improvement. Thank you Silva Plasencia APRN.SHIP/REC/DOC CONTROL documented in this encounter [facility] 12-12-2021 Miscellaneous Notes Patient has been identified [...] Nell Lemons LPN documented in this encounter [facility] 12-11-2021 History of Present illness Narrative CC: Patient presents with: Recheck: Hosp follow up hyperkalemia HPI Christina Guerrier is a 66 year old female who presents today for Hospital follow-up. 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 Lagunas [facility] ESOPHAGOGASTRODUODENOSCOPY TRANSORAL DIAGNOSTIC 12/2009 [facility] Janneth ESOPHAGOGASTRODUODENOSCOPY TRANSORAL DIAGNOSTIC 12/2010 [facility] Janneth FISTULA HERNIA REPAIR HX 12/2008 [...] microalbuminuria, with long-term current use of insulin ([facility]) - Primary E11.29, R80.9, Z79.4^Disp: ^Rfl: 0 [...] 1 Each^Rfl: 3 Blood-Glucose Meter,Continuous (DEXCOM G6 COOK BARBECUE) misc^Use to check blood sugar at least [...] CA Stroke Father Ischemic Heart Disease Father [place] age 70s Diabetes Mother age 76 other [...] Aged Out DATA REVIEWED: Outside chart from [facility] reviewed. ASSESSMENT/PLAN: 1. History of recent hospitalization [...] with more than 50% of the total [id number] time of the visit in counseling / coordination of care. documented in this encounter [facility] 12-04-2021 History of Present illness Narrative INSIGHT CDM TELEPHONIC OUTREACH Provider Action/FYI: 2nd attempt, left another message Contact made with patient: No - Left message Tierney my name is Roxie Palmer RN your Service Desk Technician from the [facility] I am calling today for your bi-weekly check in. I am sorry I missed your call. I will reach out to you again tomorrow. (if the third call I will reach out to you again next week) Enter next patient outreach date for the following business day using the Track Pt Outreach. End outreach. documented in this encounter [facility] 12-01-2021 History of Present illness Narrative INSIGHT [facility] TELEPHONIC OUTREACH Provider Action/FYI: voicemail Contact made with patient: No - Left message Hello my name is Roxie Palmer RN your Service Desk Technician from the [facility] I am calling today for your bi-weekly check in. I am sorry I missed your call. I will reach out to you again tomorrow. (if the third call I will reach out to you again next week) Enter next patient outreach date for the following business day using the Track Pt Outreach. End outreach. documented in this encounter [facility] 11-07-2021 History of Present illness Narrative INSIGHT [facility] TELEPHONIC OUTREACH Provider Action/FYI: 2nd attempt No answer/voicemail not set up Unable to leave message Contact made with patient: No - Unable to leave message Entered next patient outreach date for the following business day, if third call please enter next outreach date for one week in the Track Pt. Outreach - End Outreach documented in this encounter [facility] 11-03-2021 History of Present illness Narrative INSIGHT [facility] TELEPHONIC OUTREACH Provider Action/FYI: No answer/voicemail not set up Contact made with patient: No - Unable to leave message Entered next patient outreach date for the following business day, if third call please enter next outreach date for one week in the Track Pt. Outreach - End Outreach documented in this encounter [facility] 11-02-2021 History of Present illness Narrative Images [...] on 10/12, lunchtime Novolog was increased. At SHIP/REC/DOC CONTROL visit on 10/20, patient seen for ear pain and vaginal/rectal bleeding, and on 10/22 patient hospitalized for GI bleed. Subjective: HPI: Patient reports she only has 1 Dexcom sensor left. She gets supplies through [facility] Medical. 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 Splenomegaly ALLERGIES Allergen [...] Insulin: yes supplies Blood-Glucose Meter,Continuous (DEXCOM G6 COOK BARBECUE) [facility] Use to check blood sugar at least [...] microalbuminuria, with long-term current use of insulin ([facility]) - Primary E11.29, R80.9, Z79.4 insulin glargine [...] ALT 25 10/20/2021 ESRD on dialysis on [facility] Liver transplant list Lab Results Component Value [...] microalbuminuria, with long-term current use of insulin ([facility]) - ICD9: 250.40, 791.0, V58.67, ICD10: E11.29, [...] the dose of Novolog Advised to call [facility] Medical to request refill of CGM sensors; phone number provided 2. Medication management - ICD9: V58.69, ICD10: Z79.899 Reviewed all medications, indications, dosing, frequency, administration with patient. Medication list updated as described above. Patient is scheduled to see SHIP/REC/DOC CONTROL on 01/04. Patient to have PharmD f/u on 12/07. Patient verbalized understanding of instructions. Kim La PharmD, [facility] Primary Care Clinical Pharmacist The majority of the pharmacy visit (> 50%) was spent counseling and/or coordinating care for the patient. interaction: telephonic time was 30 minutes. 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 Lagunas [facility] ESOPHAGOGASTRODUODENOSCOPY TRANSORAL DIAGNOSTIC 12/2009 [facility] Janneth ESOPHAGOGASTRODUODENOSCOPY TRANSORAL DIAGNOSTIC 12/2010 [facility] Janneth FISTULA HERNIA REPAIR HX 12/2008 [...] CA Stroke Father Ischemic Heart Disease Father [place] age 70s Diabetes Mother age 76 other [...] mouth once daily. Blood-Glucose Meter,Continuous (DEXCOM G6 COOK BARBECUE) [facility] Use to check blood sugar at least [...] - Work up with Ultrasound transvaginal - [place] low residue diet - Treatment for constipation discussed RTO as needed to follow-up with PCP team. Prescription instructions reviewed with patient as applicable. Potential red flag symptoms discussed with the patient. Reviewed appropriate action plan to take if red flag symptoms occur. Patient agreeable to treatment plan. Jaci Lucero APRN.NATHALY [address] [place] [address] documented in this encounter [facility] 10-12-2021 History of Present illness Narrative Images [...] with cellulitis and went to ED. Saw SHIP/REC/DOC CONTROL on 09/28 for ER f/up and no [...] popcorn (white cheddar) Beverages: fluid restriction, usually [place] Crush Zero, 1 can daily; chews ice MEDICATIONS: Pill bottles are not present Adherence: denies missed doses [facility] + [facility] Affordability: no issues Diabetes supplies: [employer] System: pill box ACTIVE PROBLEM LIST [...] (Hcc) Krueger's Palsy Coronary Artery Disease Involving [place] Coronary Artery of [place] Heart Without Angina Pectoris Stable Angina (Hcc) [...] had complete hysterectomy Psoriasis and similar disorders [place]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 Splenomegaly ALLERGIES Allergen [...] hypoglycemia Insulin: yes Blood-Glucose Meter,Continuous (DEXCOM G6 COOK BARBECUE) [facility] Use to check blood sugar at least [...] microalbuminuria, with long-term current use of insulin ([facility]) - Primary E11.29, R80.9, Z79.4 insulin glargine [...] ALT 31 07/03/2021 ESRD on dialysis on [facility] Liver transplant list Lab Results Component Value [...] microalbuminuria, with long-term current use of insulin ([facility]) - ICD9: 250.40, 791.0, V58.67, ICD10: E11.29, [...] due now Patient is scheduled to see SHIP/REC/DOC CONTROL on 01/04. Patient to have PharmD f/u on 11/02. Patient verbalized understanding of instructions. Kim La PharmD, BCPS Primary Care Clinical Pharmacist The majority of the pharmacy visit (> 50%) was spent counseling and/or coordinating care for the patient. interaction: telephonic time was 28 minutes. documented in this encounter [facility] 10-09-2021 History of Present illness Narrative INSIGHT [...] like to speak with a social work team automobile assembler to help give you support for any [...] you up for automated weekly questionnaires through [employer]. This is an easy way for us [...] and End outreach. documented in this encounter [facility] 09-28-2021 Miscellaneous Notes Patient stopped by office [...] have patient manually download the reader to [employer] online prior to next PharmD visit. Kim La PharmD, [facility] Primary Care Clinical Pharmacist Cathryn LEA [facility] documented in this encounter [facility] 09-28-2021 History of Present illness Narrative CC: [...] current concerns. Does report she went to [facility] ER for blood sugar greater than 400 [...] CKD (chronic kidney disease) Dialysis M/W/F [facility] COPD (chronic obstructive pulmonary disease) (HCC) Diabetes [...] W/COLLJ SPEC WHEN PFRMD 09/2011 Dr. Lagunas [facility] ESOPHAGOGASTRODUODENOSCOPY TRANSORAL DIAGNOSTIC 12/2009 [facility] Janneth ESOPHAGOGASTRODUODENOSCOPY TRANSORAL DIAGNOSTIC 12/2010 [facility] Janneth FISTULA HERNIA REPAIR HX 12/2008 [...] each sensor change. Blood-Glucose Meter,Continuous (DEXCOM G6 COOK BARBECUE) [facility] Use to check blood sugar at least [...] CA Stroke Father Ischemic Heart Disease Father [place] age 70s Diabetes Mother age 76 other [...] Aged Out DATA REVIEWED: Outside chart from [facility] reviewed. ASSESSMENT/PLAN: 1. Lump of right thigh [...] Silva Plasencia APRN.CNP documented in this encounter [facility] 09-26-2021 Miscellaneous Notes REMEDIOS: 08/31/2021 Last refill: 04/19/2021 QTY: 60 Refills: 5 Patient's request for medication is as follows: Pending Prescriptions Disp Refills TRAZODONE 100 MG TABLET 60 tablet 5 Sig: Take 2 tablets by mouth daily at bedtime. JHON: No Please approve the above prescription(s) to electronically send to pharmacy. Jaden Yadav Ma documented in this encounter [facility] 09-21-2021 History of Present illness Narrative Radiology [...] TIME: 10:49 AM documented in this encounter [facility] 09-11-2021 Miscellaneous Notes Reason for Call: elevated [...] N/A Protocols used: DIABETES - HIGH BLOOD [id number] documented in this encounter [facility] 09-11-2021 History of Present illness Narrative [facility] CDM Enrollment Provider Action/FYI: Returned call Patient referred by: C Osei Contact made with patient: Yes - Patient identified by name and . Discussed care with patient Tierney this is Roxie Palmer RN and I am calling from Jame Hunt MD office at the [facility]. I am a RN Service Desk Technician with our [facility] Chronic Disease Management program. [...] few questions once a week through your [employer] account. It will automatically show up for [...] stressful. Can we connect you with a [facility] Health Patent Searcher to find a program that could help [...] Provider Action/FYI: ckd voicemail Patient referred by: [facility] Osei Contact made with patient: No - Left Message: Hi my name is Roxie Palmer RN and I am calling from the [facility] on behalf of your PCP, Jame Hunt MD. We are excited to share with you a new program to help you manage your health. Please call me back at [phone] between the hours of 8am-5pm Saturday-Saturday. You will receive another phone call from me within the next two business days. I hope you can take the time to speak with me. (Keep encounter open and attempt 2nd outreach in two business days from today) END OUTREACH documented in this encounter [facility] 09-07-2021 Miscellaneous Notes Images from the original note were not included. Approved Prior authorization approved Payer: [employer] [phone] EDUIN Case: [id number], Status: Approved, Coverage Starts on: 09/07/2021 1:53:39 PM, Coverage Ends on: 09/07/2021 1:53:39 PM. Questions? Contact . Approval Details Authorized from September 07, 2021 to September 07, 2021 Electronic PA completed for insulin aspart unit(s) 100(novolog U100 insulin aspart) documented in this encounter [facility] 09-07-2021 Miscellaneous Notes Noted. The following approved medication requests have been transmitted electronically. Signed Prescriptions Disp Refills insulin aspart U-100 (NOVOLOG U-100 INSULIN ASPART) 100 unit/mL 6 Vial 3 Sig: Inject 22 Units subcutaneously three times daily before meals. Type 2 diabetes mellitus with microalbuminuria, with long-term current use of insulin ([facility]) - Primary E11.29, R80.9, Z79.4 JHON: No Authorizing Provider: JAME HUNT Ordering User: KIM LA RPh [facility] pharmacy calling with request for new script for Novolog Insulin with diagnosis code on script for Medicare billing. Amadeo Mar RN documented in this encounter [facility] 09-07-2021 History of Present illness Narrative Primary [...] for cellulitis on right leg. At last SHIP/REC/DOC CONTROL appt, cellulitis appeared to be resolved but [...] missed doses [facility]acy[facility] coverage: [facility] Medicare + [facility] Affordability: no issues Diabetes supplies: [employer] System: pill box ACTIVE PROBLEM LIST WOUND [...] (Hcc) Krueger's Palsy Coronary Artery Disease Involving [place] Coronary Artery of [place] Heart Without Angina Pectoris Stable Angina (Hcc) [...] hypoglycemia Insulin: yes Blood-Glucose Meter,Continuous (DEXCOM G6 COOK BARBECUE) [facility] Use to check blood sugar at least [...] described above. Patient is scheduled to see SHIP/REC/DOC CONTROL on 09/28. Patient to have PharmD f/u on 10/12. Patient verbalized understanding of instructions. Kim La PharmD, [facility] Primary Care Clinical Pharmacist Julia Gu [facility] The majority of the pharmacy visit (> 50%) was spent counseling and/or coordinating care for the patient. interaction: face to face time was 28 minutes. documented in this encounter [facility] 09-06-2021 Miscellaneous Notes Pt called and is [...] Janelle Crocker RN documented in this encounter [facility] 09-06-2021 Miscellaneous Notes Biom'Up message sent to patient. It seems like [...] of office today. Patient phone number is [phone]. Please advise 09/05/2021 8:05 AM - Radiology, Oru In Impression IMPRESSION: Nonspecific intramuscular hypoechoic lesion. Possibly, this is an organizing hematoma and correlation to any history of recent trauma is suggested. Either follow-up examinations or MRI could be considered for further assessment. Heavy Equipment Rental Associate: BRET Transcribe Date/Time: Sep 05 2021 8:02A [...] some internal fluid. documented in this encounter [facility] 08-31-2021 History of Present illness Narrative CC: [...] Went to dialysis yesterday, was seen by turbine mechanic and had leg checked again for DVT [...] CKD (chronic kidney disease) Dialysis M/W/F [facility] COPD (chronic obstructive pulmonary disease) (HCC) Diabetes [...] FLX DX W/COLLJ SPEC WHEN PFRMD 11/29/2011 [facility] Main /Dr. Anderson COLONOSCOPY FLX DX W/COLLJ SPEC WHEN PFRMD 07/2011 Jann[facility] COLONOSCOPY FLX DX W/COLLJ SPEC WHEN PFRMD 09/2011 Dr. Lagunas [facility] ESOPHAGOGASTRODUODENOSCOPY TRANSORAL DIAGNOSTIC 12/2009 [facility] Janneth ESOPHAGOGASTRODUODENOSCOPY TRANSORAL DIAGNOSTIC 12/2010 [facility] Janneth FISTULA HERNIA REPAIR HX 12/2008 [...] each sensor change. 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 Lagunas [facility] ESOPHAGOGASTRODUODENOSCOPY TRANSORAL DIAGNOSTIC 12/2009 [facility] Janneth ESOPHAGOGASTRODUODENOSCOPY TRANSORAL DIAGNOSTIC 12/2010 [facility] Janneth FISTULA HERNIA REPAIR HX 12/2008 [...] tablet by mouth once daily. Blood-Glucose Transmitter (Twelvefold G6 TRANSMITTER) brady Apply new transmitter every 90 days. Clean transmitter with an alcohol swab with each sensor change. Blood-Glucose Meter,Continuous (DEXCOM G6 COOK BARBECUE) [facility] Use to check blood sugar at least [...] CA Stroke Father Ischemic Heart Disease Father [place] age 70s Diabetes Mother age 76 other [...] Silva Plasencia APRN.CNP documented in this encounter [facility] 08-21-2021 History of Present illness Narrative POPULATION HEALTH NAVIGATION OUTREACH Action/FYI Patient Outreach: [place] Support - Spoke with patient to schedule [...] Care Gap or Scheduling/Wellness visits Payer: Payor: [employer] MEDICARE / Plan: [employer] GOLD PLUS / Product Type: HMO / Care Gap Reviewed:: Follow-up appointment Reminder: Reminder note to check Health Maintenance for items below Health Maintenance items due: SHINGRIX VACCINE(1 of 2) Never done PAP TESTING due on 03/05/2020 Message Sent to Practice: No Navigation Signature: Haritha Cary August 21, 2021 5:00 PM documented in this encounter [facility] 08-14-2021 Miscellaneous Notes forms completed and faxed on 08/09/2021. Franci Quinn LPN Forms received and placed papers on providers desk. Franci Quinn LPN [place] noted. Jasmina from [facility] [employer] [facility] calling she will be faxing Power chair forms back to office with on cover sheet what needs to be fixed on the forms. Please advise documented in this encounter [facility] 08-14-2021 History of Present illness Narrative Reason [...] evening of Saturday she did go to [facility], her covid and flu was negative [...] of chronic kidney failure, stage 4 (severe) ([facility]) 12/11/2016 Anxiety Arthritis Krueger's palsy CAD (coronary artery disease) Cancer (HCC) uterine and cervical Celiac disease 2007 Cellulitis of back except buttock Cirrhosis of liver without mention of alcohol CKD (chronic kidney disease) Dialysis M/W/F [facility] COPD (chronic obstructive pulmonary disease) (HCC) Diabetes mellitus without mention of complication Diabetic polyneuropathy ([facility]) 02/04/2017 Disorder of thyroid DVT (deep venous thrombosis) ([facility]) Esophageal reflux Hammer toes, bilateral 11/30/2016 History of transfusion Hypertension Incisional hernia 12/30/2008 Liver replaced by transplant ([facility]) 2008 - 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 Lagunas [facility] ESOPHAGOGASTRODUODENOSCOPY TRANSORAL DIAGNOSTIC 12/2009 [facility] Janneth ESOPHAGOGASTRODUODENOSCOPY TRANSORAL DIAGNOSTIC 12/2010 [facility] Janneth FISTULA HERNIA REPAIR HX 12/2008 [...] CA Stroke Father Ischemic Heart Disease Father [place] age 70s Diabetes Mother age 76 other [...] G6 TRANSMITTER) brady Blood-Glucose Meter,Continuous (DEXCOM G6 COOK BARBECUE) misc Blood-Glucose Sensor (DEXCOM G6 SENSOR) brady [...] Jame Hunt MD documented in this encounter [facility] 08-09-2021 Miscellaneous Notes Form completed and faxed. [...] [place] PharmD, BCACP Primary Care Clinical Pharmacist [facility] Patient takes insulin: Novolog unit(s)-100 3 [...] Gurrola, PharmD, BCACP Primary Care Clinical Pharmacist [facility] Patient is interested in getting the [place] and may need a follow up appointment. Please advise documented in this encounter [facility] 08-03-2021 Miscellaneous Notes Pt would like these medications reordered. Correct pharmacy verified on order. Pending Prescriptions Disp Refills ASPIRIN 81 MG CHEWABLE TABLET Sig: Take 4 tablets by mouth once daily. JHON: No documented in this encounter [facility] 07-24-2021 History of Present illness Narrative Charbel Esparza MD Department of Orthopaedics Orthopaedics [address] [address] Dept: [phone] Dept July 24, 2021 Consultation requested by [...] IMPRESSION: Osteoarthrosis. No evidence of inflammatory arthropathy. Heavy Equipment Rental Associate: [facility] Transcribe Date/Time: Jul 03 2021 4:57P [...] W/COLLJ SPEC WHEN PFRMD 09/2011 Dr. Lagunas [facility] ESOPHAGOGASTRODUODENOSCOPY TRANSORAL DIAGNOSTIC 12/2009 [facility] Janneth ESOPHAGOGASTRODUODENOSCOPY TRANSORAL DIAGNOSTIC 12/2010 [facility] Janneth FISTULA HERNIA REPAIR HX 12/2008 [...] CA Stroke Father Ischemic Heart Disease Father [place] age 70s Diabetes Mother age 76 other [...] each sensor change. Blood-Glucose Meter,Continuous (DEXCOM G6 COOK BARBECUE) [facility] Use to check blood sugar at least [...] Psych (no depression, anxiety) REFERRING PHYSICIAN: Ms. Christina Guerrier was referred to ri for consultation by the following physician. This consultation note will be sent to the following physician by either mail or electronic medical record. Josse Lance [address] [facility] [address] Jame Hunt MD [address] [facility] [address] Charbel Esparza MD documented in this encounter [facility] 07-21-2021 Miscellaneous Notes Patient calling said Open [...] chair. Please advise documented in this encounter [facility] 07-13-2021 Miscellaneous Notes Patient notified that prescription was sent to the pharmacy and verbalized understanding. Rx refill sent to [facility]. PDMP website checked and validated. All prescriptions have been APPROPRIATELY filled. No suspicious activity was identified. 07/13/2021 by Josse Lance APRN.ZINC MINER BLASTING Patient called to check on her request for medication; does not see Ortho until 07/27/21. Please send to [facility] [place]; added to file. Please call her today. Patient said Josse Lance referred her to ortho for wrist pain. Patient can't get in until 07/27/21. Wants to know if she can have a refill of [place] or another rx for the pain. Please advise at [phone]. documented in this encounter [facility] 07-13-2021 Miscellaneous Notes PharmD printed out and [...] Once completed, will plan to fax to [employer]. Kim La PharmD, [facility] Primary Care Clinical Pharmacist Julia Gu [facility] documented in this encounter [facility] 07-12-2021 Miscellaneous Notes I called [employer] today at the number provided below. Spoke with a very helpful termite control service representative named Lokesh who said the order needs to be submitted through medical benefit to [employer]. PharmNichole will plan to resubmit paperwork tomorrow. No letter or fax. I called the per PA response [employer] at [phone] PharmNichole spoke with patient (can see MyC msg from today and also a replay from 06/29 MyC msg). Patient is certain her insurance will cover Dexcom if it is process through prescription vs medical. She said that [employer] states more info is needed but was not provided more information. Has our office received any fax or letters from [facility] regarding what information we may be missing? PharmNichole sent a MyChart msg to patient today to see if she is aware if insurance prefers Freestyle [place] 2. The patient notified PharmNichole last month that her insurance should cover Dexcom [facility]. Will await patient response. Kim La PharmD, [facility] Primary Care Clinical Pharmacist Julia Gu [facility] Called number and the PA needs to come from the pharmacy. They are asking for code DME H. The Dr office does not have this code. This call reference number is [id number]. Call to [facility] and pharmacist doesn't have this info either. He doesn't believe this would be covered.What about a freeyle [place]? Images from the original note were not included. Per covermymeds PA response. Per PA for dexcom transmitter. PER the pharmacy this needs to have Prior Authorization thru her medical insurance not a covered benefit. documented in this encounter [facility] 07-12-2021 Miscellaneous Notes PharmD called [employer] [facility] ([phone]) and spoke with termite control service representative, Lokesh. Sees that authorization was submitted on July 10 and it is pending. He reported the authorization was submitted incorrectly as pharmacy benefit instead of a medical benefit. He said application needs to be submitted through [facility] [employer] (contact number provided: ). PharmD will plan to resubmit application through [facility] Medical tomorrow when in the [place] office. Kim La PharmD, [facility] Primary Care Clinical Pharmacist Cathryn LEA [facility] documented in this encounter [facility] 07-09-2021 Miscellaneous Notes Patient is scheduled Patient [...] with current treatment. documented in this encounter [facility] 07-03-2021 Miscellaneous Notes Addended by: JOSSE LANCE on: 07/03/2021 11:41 AM Modules accepted: Orders documented in this encounter [facility] 07-03-2021 History of Present illness Narrative Images [...] (Hcc) Krueger's Palsy Coronary Artery Disease Involving [place] Coronary Artery of [place] Heart Without Angina Pectoris Stable Angina (Hcc) [...] mellitus without mention of complication Diabetic polyneuropathy ([facility]) 02/04/2017 Disorder of thyroid DVT (deep venous thrombosis) ([facility]) Esophageal reflux Hammer toes, bilateral 11/30/2016 History of transfusion Hypertension Incisional hernia 12/30/2008 Liver replaced by transplant ([facility]) 2008 - 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 Plan: - Continue Tacrolimus 1.5 mg BID - daily Tacrolimus levels - Continue Otezla 30 mg BID Lymphedema RAUL (obstructive sleep apnea) does not use CPAP Other and unspecified hyperlipidemia Other lymphedema runs in family PMH - PAST MEDICAL HISTORY OF 1999 endometrial cancer, had complete hysterectomy Psoriasis and similar disorders [place]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 Noted. Please le us know if you need anything from PCP. Thank you Silva Plasencia APRN.NATHALY Noted, once fax is received place document it and place on PharmNichole's desk. Thanks! Kim La PharmD, [facility] Primary Care Clinical Pharmacist Julia Gu [facility] Rossana @ [employer] calling to let PCP know she is faxing a new order form for Dexcom G6 System. She states the original order was incomplete. Amadeo Mar RN documented in this encounter [facility] 06-13-2021 Miscellaneous Notes Tonya from [facility] calling asking for paper work to be faxed to [phone]. Found paper work and faxed as requested. Current paperwork and orders sent to [facility]. We will await response. Franci Quinn LPN Franci. Do we have the paper work we sent to the [facility] people? How do I order for this? dont we get a form that we need to fill? Christina Guerrier is calling Jame Hunt MD today to request an order for a motorized scooter. Patient said this has been requested before but sent to [facility] who did not have the scooter in stock. Patient asking if an order can be faxed to [facility]. Please fax order to [phone]. Patient asking tor a return call.No chief complaint on file. Patient has been identified by name and birthdate. Duration of symptoms: N/A Person calling: self Call patient at: on cell [phone] (home) [phone] (cell) Was an appointment scheduled: No Closing statement: Results or non-symptom based questions: Thank you for calling [facility], your call will be returned within the next business day. Veronica Richard documented in this encounter [facility] 06-08-2021 Miscellaneous Notes Script for Novolog sent. [...] Amadeo Mar RN documented in this encounter [facility] 06-08-2021 Miscellaneous Notes PharmD completed [employer] CMN form. PCP signed form and chart note and faxed to [facility] today. Kim La PharmD, [facility] Primary Care Clinical Pharmacist Julia Gu [facility] documented in this encounter [facility] 06-08-2021 History of Present illness Narrative Primary [...] a protein shake) Beverages are limited. Drinks Gilchrist Crush (its the only thing she can stomach; 1 can lasts 1 day) MEDICATIONS: Pill bottles are not present Adherence: denies missed doses Pharmacy: [facility] Rx coverage: [facility] HMO Medicare + [facility] Affordability: no issues Diabetes supplies: [employer] System: pill box ACTIVE PROBLEM LIST WOUND [...] (Hcc) Krueger's Palsy Coronary Artery Disease Involving [place] Coronary Artery of [place] Heart Without Angina Pectoris Stable Angina (Hcc) [...] Incisional hernia 12/30/2008 Liver replaced by transplant ([facility]) 2008 - Cirrhosis s/p OLT 2008 - [...] application for Dexcom G6, will apply to [employer] to see if that is a preferred [...] verbalized understanding of instructions. Kim La PharmD, [facility] Primary Care Clinical Pharmacist Julia Gu [facility] The majority of the pharmacy visit (> 50%) was spent counseling and/or coordinating care for the patient. interaction: face to face time was 55 minutes. documented in this encounter [facility] 06-08-2021 Instructions Kim La RPh - 06/08/2021 3:00 PM EDT INCREASE Lantus to 50 units twice daily INCREASE Novolog to 17 units with meals Continue monitoring your blood sugars. PharmD will work on getting order submitted for continuous glucose monitor. Contact PharmD if any issues with low blood sugars. documented in this encounter [facility] 06-08-2021 Miscellaneous Notes Addended by: KIM LA on: 06/08/2021 04:09 PM Modules accepted: Orders documented in this encounter [facility] 06-02-2021 Miscellaneous Notes This was faxed 03/29/21. Will refax today 06/02. Patient is calling in today still waiting on scooter. Keny is still waiting on the actual order for this. Keny phone number is [phone] If you can please send an order [...] work rec'd from the office from whatever [employer] company pt is using for this. Please set the prior auth in motion Patient reports [facility] tells her pcp needs to do a PA for the electric scooter. Prior Authorization Documentation Prior authorization requested for the following medication: Medication: Electric Scooter Provider: [employer] Name: [employer] Phone number: [phone] Patient ID number: [id number] Pharmacy Name: [facility] is out of them - will not get more until August or September Pharmacy Telephone number: Will find out from [facility] where can get one from. Patient also wants pcp to know she had heart cath done on , and will need triple bypass. Patient reports she spoke with surgeon yesterday- and surgeon will call her next at 8:30 am to let her know. documented in this encounter [facility] documented as of this encounter (statuses as of 06/02/2021) [facility] History of Past illness Narrative* Problem Noted [...] of this encounter (statuses as of 06/08/2021) [facility] History of Past illness Narrative* Problem Noted [...] of this encounter (statuses as of 06/08/2021) [facility] History of Past illness Narrative* Problem Noted [...] of this encounter (statuses as of 06/09/2021) [facility] History of Past illness Narrative* Problem Noted Date Resolved Date Acute renal failure superimp osed on stage 4 chronic kidney disease 01/02/2020 11/29/2020 Shortness of breath 11/23/2019 11/29/2020 Meralgia paresthetica of right side 02/20/2018 06/09/2018 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 0 11/29/2020 Last [...] of this encounter (statuses as of 06/13/2021) [facility] History of Past illness Narrative* Problem Noted Date Resolved Date Acute renal failure superimp osed on stage 4 chronic kidney disease 01/02/2020 11/29/2020 Shortness of breath 11/23/2019 11/29/2020 Meralgia paresthetica of right side 02/20/2018 06/09/2018 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 0 11/29/2020 Last [...] of this encounter (statuses as of 06/15/2021) [facility] History of Past illness Narrative* Problem Noted Date Resolved Date Acute renal failure superimp osed on stage 4 chronic kidney disease 01/02/2020 11/29/2020 Shortness of breath 11/23/2019 11/29/2020 Meralgia paresthetica of right side 02/20/2018 06/09/2018 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 0 11/29/2020 Last [...] of this encounter (statuses as of 06/29/2021) [facility] History of Past illness Narrative* Problem Noted Date Resolved Date Acute renal failure superimp osed on stage 4 chronic kidney disease 01/02/2020 11/29/2020 Shortness of breath 11/23/2019 11/29/2020 Meralgia paresthetica of right side 02/20/2018 06/09/2018 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 0 11/29/2020 Last [...] of this encounter (statuses as of 07/03/2021) [facility] of [facility] Narrative* Problem Noted [...] of this encounter (statuses as of 07/09/2021) [facility] History of Past illness Narrative* Problem Noted Date Resolved Date Acute renal failure superimp osed on stage 4 chronic kidney disease 01/02/2020 11/29/2020 Shortness of breath 11/23/2019 11/29/2020 Meralgia paresthetica of right side 02/20/2018 06/09/2018 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 0 11/29/2020 Last [...] of this encounter (statuses as of 07/11/2021) [facility] of [facility] Narrative* Problem Noted Date Resolved Date Acute renal failure superimp osed on stage 4 chronic kidney disease 01/02/2020 11/29/2020 Shortness of breath 11/23/2019 11/29/2020 Meralgia paresthetica of right side 02/20/2018 06/09/2018 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 0 11/29/2020 Last [...] of this encounter (statuses as of 07/12/2021) [facility] of [facility] Narrative* Problem Noted [...] of this encounter (statuses as of 07/13/2021) [facility] of [facility] Narrative* Problem Noted Date Resolved Date Acute renal failure superimp osed on stage 4 chronic kidney disease 01/02/2020 11/29/2020 Shortness of breath 11/23/2019 11/29/2020 Meralgia paresthetica of right side 02/20/2018 06/09/2018 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 0 11/29/2020 Last [...] of this encounter (statuses as of 07/13/2021) [facility] Narrative* Problem Noted [...] of this encounter (statuses as of 07/14/2021) [facility] Narrative* Problem Noted [...] of this encounter (statuses as of 08/03/2021) [facility] Narrative* Problem Noted [...] of this encounter (statuses as of 08/08/2021) [facility] Narrative* Problem Noted Date Resolved Date Acute renal failure superimp osed on stage 4 chronic kidney disease 01/02/2020 11/29/2020 Shortness of breath 11/23/2019 11/29/2020 Meralgia paresthetica of right side 02/20/2018 06/09/2018 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 0 11/29/2020 Last [...] of this encounter (statuses as of 08/09/2021) [facility] Narrative* Problem Noted Date Resolved Date Acute renal failure superimp osed on stage 4 chronic kidney disease 01/02/2020 11/29/2020 Shortness of breath 11/23/2019 11/29/2020 Meralgia paresthetica of right side 02/20/2018 06/09/2018 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 0 11/29/2020 Last [...] of this encounter (statuses as of 08/10/2021) [facility] Narrative* Problem Noted Date Resolved Date Acute renal failure superimp osed on stage 4 chronic kidney disease 01/02/2020 11/29/2020 Shortness of breath 11/23/2019 11/29/2020 Meralgia paresthetica of right side 02/20/2018 06/09/2018 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 0 11/29/2020 Last [...] of this encounter (statuses as of 08/14/2021) [facility] N[facility]ative* Problem Noted Date Resolved Date Acute renal failure superimp osed on stage 4 chronic kidney disease 01/02/2020 11/29/2020 Shortness of breath 11/23/2019 11/29/2020 Meralgia paresthetica of right side 02/20/2018 06/09/2018 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 0 11/29/2020 Last [...] of this encounter (statuses as of 08/14/2021) [facility] Narrative* Problem Noted [...] of this encounter (statuses as of 08/21/2021) [facility] Narrative* Problem Noted [...] of this encounter (statuses as of 08/25/2021) [facility] Narrative* Problem Noted Date Resolved Date Acute renal failure superimp osed on stage 4 chronic kidney disease 01/02/2020 11/29/2020 Shortness of breath 11/23/2019 11/29/2020 Meralgia paresthetica of right side 02/20/2018 06/09/2018 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 0 11/29/2020 Last [...] of this encounter (statuses as of 08/31/2021) [facility] Narrative* Problem Noted Date Resolved Date Acute renal failure superimp osed on stage 4 chronic kidney disease 01/02/2020 11/29/2020 Shortness of breath 11/23/2019 11/29/2020 Meralgia paresthetica of right side 02/20/2018 06/09/2018 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 0 11/29/2020 Last [...] of this encounter (statuses as of 09/06/2021) [facility] Narrative* Problem Noted Date Resolved Date Acute renal failure superimp osed on stage 4 chronic kidney disease 01/02/2020 11/29/2020 Shortness of breath 11/23/2019 11/29/2020 Meralgia paresthetica of right side 02/20/2018 06/09/2018 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 0 11/29/2020 Last [...] of this encounter (statuses as of 09/06/2021) [facility] Narrative* Problem Noted [...] of this encounter (statuses as of 09/07/2021) [facility] Narrative* Problem Noted Date Resolved Date Acute renal failure superimp osed on stage 4 chronic kidney disease 01/02/2020 11/29/2020 Shortness of breath 11/23/2019 11/29/2020 Meralgia paresthetica of right side 02/20/2018 06/09/2018 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 0 11/29/2020 Last [...] of this encounter (statuses as of 09/07/2021) [facility] N[facility]* Problem Noted [...] of this encounter (statuses as of 09/07/2021) [facility] Narrative* Problem Noted Date Resolved Date Acute renal failure superimp osed on stage 4 chronic kidney disease 01/02/2020 11/29/2020 Shortness of breath 11/23/2019 11/29/2020 Meralgia paresthetica of right side 02/20/2018 06/09/2018 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 0 11/29/2020 Last [...] of this encounter (statuses as of 09/11/2021) [facility] Narrative* Problem Noted [...] of this encounter (statuses as of 09/12/2021) [facility] Narrative* Problem Noted [...] of this encounter (statuses as of 09/22/2021) [facility] Narrative* Problem Noted [...] of this encounter (statuses as of 09/26/2021) [facility] Narrative* Problem Noted [...] of this encounter (statuses as of 09/27/2021) [facility] Narrative* Problem Noted [...] of this encounter (statuses as of 09/28/2021) [facility] Narrative* Problem Noted Date Resolved Date Acute renal failure superimp osed on stage 4 chronic kidney disease 01/02/2020 11/29/2020 Shortness of breath 11/23/2019 11/29/2020 Meralgia paresthetica of right side 02/20/2018 06/09/2018 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 0 11/29/2020 Last [...] of this encounter (statuses as of 09/28/2021) [facility] Narrative* Problem Noted Date Resolved Date Acute renal failure superimp osed on stage 4 chronic kidney disease 01/02/2020 11/29/2020 Shortness of breath 11/23/2019 11/29/2020 Meralgia paresthetica of right side 02/20/2018 06/09/2018 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 0 11/29/2020 Last [...] of this encounter (statuses as of 10/09/2021) [facility] Narrative* Problem Noted Date Resolved Date Acute renal failure superimp osed on stage 4 chronic kidney disease 01/02/2020 11/29/2020 Shortness of breath 11/23/2019 11/29/2020 Meralgia paresthetica of right side 02/20/2018 06/09/2018 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 0 11/29/2020 Last [...] of this encounter (statuses as of 10/12/2021) [facility] N[facility]ative* Problem Noted Date Resolved Date Acute renal failure superimp osed on stage 4 chronic kidney disease 01/02/2020 11/29/2020 Shortness of breath 11/23/2019 11/29/2020 Meralgia paresthetica of right side 02/20/2018 06/09/2018 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 0 11/29/2020 Last [...] of this encounter (statuses as of 10/20/2021) [facility] History of Past illness Narrative* Problem Noted Date Resolved Date Acute renal failure superimp osed on stage 4 chronic kidney disease 01/02/2020 11/29/2020 Shortness of breath 11/23/2019 11/29/2020 Meralgia paresthetica of right side 02/20/2018 06/09/2018 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 0 11/29/2020 Last [...] of this encounter (statuses as of 10/20/2021) [facility] History of Past illness Narrative* Problem Noted Date Resolved Date Acute renal failure superimp osed on stage 4 chronic kidney disease 01/02/2020 11/29/2020 Shortness of breath 11/23/2019 11/29/2020 Meralgia paresthetica of right side 02/20/2018 06/09/2018 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 0 11/29/2020 Last [...] of this encounter (statuses as of 10/21/2021) [facility] History of Past illness Narrative* Problem Noted Date Resolved Date Acute renal failure superimp osed on stage 4 chronic kidney disease 01/02/2020 11/29/2020 Shortness of breath 11/23/2019 11/29/2020 Meralgia paresthetica of right side 02/20/2018 06/09/2018 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 0 11/29/2020 Last [...] of this encounter (statuses as of 10/23/2021) [facility] History of Past illness Narrative* Problem Noted Date Resolved Date Acute renal failure superimp osed on stage 4 chronic kidney disease 01/02/2020 11/29/2020 Shortness of breath 11/23/2019 11/29/2020 Meralgia paresthetica of right side 02/20/2018 06/09/2018 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 0 11/29/2020 Last [...] of this encounter (statuses as of 11/02/2021) [facility] History of Past illness Narrative* Problem Noted Date Resolved Date Acute renal failure superimp osed on stage 4 chronic kidney disease 01/02/2020 11/29/2020 Shortness of breath 11/23/2019 11/29/2020 Meralgia paresthetica of right side 02/20/2018 06/09/2018 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 0 11/29/2020 Last [...] of this encounter (statuses as of 11/07/2021) [facility] Past illness Narrative* Problem Noted [...] of this encounter (statuses as of 11/15/2021) [facility] Past illness Narrative* Problem Noted [...] of this encounter (statuses as of 11/27/2021) [facility] Past illness Narrative* Problem Noted [...] of this encounter (statuses as of 12/04/2021) [facility] Past illness Narrative* Problem Noted [...] of this encounter (statuses as of 12/11/2021) [facility] History of Past illness Narrative* Problem Noted Date Resolved Date Acute renal failure superimp osed on stage 4 chronic kidney disease 01/02/2020 11/29/2020 Shortness of breath 11/23/2019 11/29/2020 Meralgia paresthetica of right side 02/20/2018 06/09/2018 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 0 11/29/2020 Last [...] of this encounter (statuses as of 12/12/2021) [facility] Past illness Narrative* Problem Noted [...] of this encounter (statuses as of 12/13/2021) [facility] of Past illness Narrative* Problem Noted Date Resolved Date Acute renal failure superimp osed on stage 4 chronic kidney disease 01/02/2020 11/29/2020 Shortness of breath 11/23/2019 11/29/2020 Meralgia paresthetica of right side 02/20/2018 06/09/2018 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 0 11/29/2020 Last [...] of this encounter (statuses as of 01/01/2022) [facility] of Past illness Narrative* Problem Noted Date Resolved Date Acute renal failure superimp osed on stage 4 chronic kidney disease 01/02/2020 11/29/2020 Shortness of breath 11/23/2019 11/29/2020 Meralgia paresthetica of right side 02/20/2018 06/09/2018 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 0 11/29/2020 Last [...] of this encounter (statuses as of 01/01/2022) [facility] Past illness Narrative* Problem Noted [...] of this encounter (statuses as of 01/01/2022) [facility] History of Past illness Narrative* Problem Noted Date Resolved Date Acute renal failure superimp osed on stage 4 chronic kidney disease 01/02/2020 11/29/2020 Shortness of breath 11/23/2019 11/29/2020 Meralgia paresthetica of right side 02/20/2018 06/09/2018 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 0 11/29/2020 Last [...] of this encounter (statuses as of 01/19/2022) [facility] of Past illness Narrative* Problem Noted [...] of this encounter (statuses as of 01/24/2022) [facility] Past illness Narrative* Problem Noted [...] of this encounter (statuses as of 01/26/2022) [facility] History of Past illness Narrative* Problem Noted Date Resolved Date Acute renal failure superimp osed on stage 4 chronic kidney disease 01/02/2020 11/29/2020 Shortness of breath 11/23/2019 11/29/2020 Meralgia paresthetica of right side 02/20/2018 06/09/2018 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 0 11/29/2020 Last [...] of this encounter (statuses as of 01/29/2022) [facility] of Past illness Narrative* Problem Noted [...] of this encounter (statuses as of 02/01/2022) [facility] History of Past illness Narrative* Problem Noted [...] of this encounter (statuses as of 02/05/2022) [facility] of Past illness Narrative* Problem Noted [...] of this encounter (statuses as of 02/05/2022) [facility] History of Past illness Narrative* Problem Noted Date Resolved Date Acute renal failure superimp osed on stage 4 chronic kidney disease 01/02/2020 11/29/2020 Shortness of breath 11/23/2019 11/29/2020 Meralgia paresthetica of right side 02/20/2018 06/09/2018 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 0 11/29/2020 Last [...] of this encounter (statuses as of 02/09/2022) [facility] History of Past illness Narrative* Problem Noted Date Resolved Date Acute renal failure superimp osed on stage 4 chronic kidney disease 01/02/2020 11/29/2020 Shortness of breath 11/23/2019 11/29/2020 Meralgia paresthetica of right side 02/20/2018 06/09/2018 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 0 11/29/2020 Last [...] of this encounter (statuses as of 02/23/2022) [facility] of Past illness Narrative* Problem Noted [...] of this encounter (statuses as of 03/19/2022) [facility] History of Past illness Narrative* Problem Noted Date Resolved Date Acute renal failure superimp osed on stage 4 chronic kidney disease 01/02/2020 11/29/2020 Shortness of breath 11/23/2019 11/29/2020 Meralgia paresthetica of right side 02/20/2018 06/09/2018 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 0 11/29/2020 Last [...] of this encounter (statuses as of 04/19/2022) [facility] History of Past illness Narrative* Problem Noted Date Resolved Date Acute renal failure superimp osed on stage 4 chronic kidney disease 01/02/2020 11/29/2020 Shortness of breath 11/23/2019 11/29/2020 Meralgia paresthetica of right side 02/20/2018 06/09/2018 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 0 11/29/2020 Last [...] of this encounter (statuses as of 04/20/2022) [facility] of Past illness Narrative* Problem Noted Date Resolved Date Acute renal failure superimp osed on stage 4 chronic kidney disease 01/02/2020 11/29/2020 Shortness of breath 11/23/2019 11/29/2020 Meralgia paresthetica of right side 02/20/2018 06/09/2018 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 0 11/29/2020 Last [...] of this encounter (statuses as of 04/24/2022) [facility] History of Past illness Narrative* Problem Noted [...] of this encounter (statuses as of 05/02/2022) [facility] of Past illness Narrative* Problem Noted [...] of this encounter (statuses as of 05/03/2022) [facility] Past illness Narrative* Problem Noted [...] of this encounter (statuses as of 05/03/2022) [facility] Past illness Narrative* Problem Noted [...] of this encounter (statuses as of 05/07/2022) [facility] Past illness Narrative* Problem Noted [...] of this encounter (statuses as of 05/16/2022) [facility] of Past illness Narrative* Problem Noted Date Resolved Date Acute renal failure superimp osed on stage 4 chronic kidney disease 01/02/2020 11/29/2020 Shortness of breath 11/23/2019 11/29/2020 Meralgia paresthetica of right side 02/20/2018 06/09/2018 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 0 11/29/2020 Last [...] of this encounter (statuses as of 05/21/2022) [facility] History of Past illness Narrative* Problem Noted Date Resolved Date Acute renal failure superimp osed on stage 4 chronic kidney disease 01/02/2020 11/29/2020 Shortness of breath 11/23/2019 11/29/2020 Meralgia paresthetica of right side 02/20/2018 06/09/2018 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 0 11/29/2020 Last [...] of this encounter (statuses as of 05/23/2022) [facility] of Past illness Narrative* Problem Noted Date Resolved Date Acute renal failure superimp osed on stage 4 chronic kidney disease 01/02/2020 11/29/2020 Shortness of breath 11/23/2019 11/29/2020 Meralgia paresthetica of right side 02/20/2018 06/09/2018 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 0 11/29/2020 Last [...] of this encounter (statuses as of 05/23/2022) [facility] of Past illness Narrative* Problem Noted Date Resolved Date Acute renal failure superimp osed on stage 4 chronic kidney disease 01/02/2020 11/29/2020 Shortness of breath 11/23/2019 11/29/2020 Meralgia paresthetica of right side 02/20/2018 06/09/2018 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 0 11/29/2020 Last [...] of this encounter (statuses as of 05/23/2022) [facility] of Past illness Narrative* Problem Noted [...] of this encounter (statuses as of 05/23/2022) [facility] of Past illness Narrative* Problem Noted [...] of this encounter (statuses as of 05/29/2022) [facility] Past illness Narrative* Problem Noted [...] of this encounter (statuses as of 05/31/2022) [facility] of Past illness Narrative* Problem Noted Date Resolved Date Acute renal failure superimp osed on stage 4 chronic kidney disease 01/02/2020 11/29/2020 Shortness of breath 11/23/2019 11/29/2020 Meralgia paresthetica of right side 02/20/2018 06/09/2018 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 12/07/2016 0 11/29/2020 Last [...] of this encounter (statuses as of 06/14/2022) [facility] of Past illness Narrative* Problem Noted Date Resolved Date Acute renal failure superimp osed on stage 4 chronic kidney disease 01/02/2020 11/29/2020 Shortness of breath 11/23/2019 11/29/2020 Meralgia paresthetica of right side 02/20/2018 06/09/2018 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 12/07/2016 0 11/29/2020 Last [...] of this encounter (statuses as of 06/15/2022) [facility] of Past illness Narrative* Problem Noted Date Resolved Date Acute renal failure superimp osed on stage 4 chronic kidney disease 01/02/2020 11/29/2020 Shortness of breath 11/23/2019 11/29/2020 Meralgia paresthetica of right side 02/20/2018 06/09/2018 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 12/07/2016 0 11/29/2020 Last [...] of this encounter (statuses as of 06/22/2022) [facility] of Past illness Narrative* Problem Noted [...] of this encounter (statuses as of 06/27/2022) [facility] Past illness Narrative* Problem Noted [...] of this encounter (statuses as of 07/05/2022) [facility] History of Past illness Narrative* Problem Noted Date Resolved Date Acute renal failure superimp osed on stage 4 chronic kidney disease 01/02/2020 11/29/2020 Shortness of breath 11/23/2019 11/29/2020 Meralgia paresthetica of right side 02/20/2018 06/09/2018 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 12/07/2016 0 11/29/2020 Last [...] of this encounter (statuses as of 07/11/2022) [facility] of Past illness Narrative* Problem Noted [...] of this encounter (statuses as of 07/12/2022) [facility] of Past illness Narrative* Problem Noted Date Resolved Date Acute renal failure superimp osed on stage 4 chronic kidney disease 01/02/2020 11/29/2020 Shortness of breath 11/23/2019 11/29/2020 Meralgia paresthetica of right side 02/20/2018 06/09/2018 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 12/07/2016 0 11/29/2020 Last [...] of this encounter (statuses as of 07/13/2022) [facility] of Past illness Narrative* Problem Noted [...] of this encounter (statuses as of 08/23/2022) [facility] Past illness Narrative* Problem Noted [...] of this encounter (statuses as of 08/29/2022) [facility] Past illness Narrative* Problem Noted [...] of this encounter (statuses as of 08/30/2022) [facility] of Past illness Narrative* Problem Noted Date Resolved Date Acute renal failure superimp osed on stage 4 chronic kidney disease 01/02/2020 11/29/2020 Shortness of breath 11/23/2019 11/29/2020 Meralgia paresthetica of right side 02/20/2018 06/09/2018 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 12/07/2016 0 11/29/2020 Last [...] of this encounter (statuses as of 08/30/2022) [facility] of Past illness Narrative* Problem Noted [...] of this encounter (statuses as of 09/26/2022) [facility] Past [facility] Narrative* Problem Noted [...] of this encounter (statuses as of 09/27/2022) [facility] Past illness Narrative* Problem Noted Date Diagnosed Date Resolved Date Acute renal failure superimp osed on stage 4 chronic kidney disease 01/02/2020 11/29/2020 Shortness of breath 11/23/2019 11/30/19 21 Meralgia paresthetica of right side 02/20/2018 06/09/2018 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 12/07/2016 11/29/2020 Last Assessment [...] of this encounter (statuses as of 10/24/2022) [facility] Narrative* Problem Noted [...] of this encounter (statuses as of 10/26/2022) [facility]arrative* Problem Noted [...] of this encounter (statuses as of 10/27/2022) [facility] Narrative* Problem Noted [...] of this encounter (statuses as of 10/28/2022) [facility]ative* Problem Noted [...] of this encounter (statuses as of 11/07/2022) [facility] Narrative* Problem Noted Date Diagnosed Date Resolved Date Acute renal failure superimp osed on stage 4 chronic kidney disease 01/02/2020 11/29/2020 Shortness of breath 11/23/2019 11/30/19 21 Meralgia paresthetica of right side 02/20/2018 06/09/2018 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 12/07/2016 11/29/2020 Last Assessment [...] of this encounter (statuses as of 11/21/2022) [facility] Narrative* Problem Noted Date Diagnosed Date Resolved Date Acute renal failure superimp osed on stage 4 chronic kidney disease 01/02/2020 11/29/2020 Shortness of breath 11/23/2019 11/30/19 21 Meralgia paresthetica of right side 02/20/2018 06/09/2018 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 12/07/2016 11/29/2020 Last Assessment [...] of this encounter (statuses as of 11/23/2022) [facility]ative* Problem Noted [...] of this encounter (statuses as of 11/27/2022) [facility] Narrative* Problem Noted Date Diagnosed Date Resolved Date Acute renal failure superimp osed on stage 4 chronic kidney disease 01/02/2020 11/29/2020 Shortness of breath 11/23/2019 11/30/19 21 Meralgia paresthetica of right side 02/20/2018 06/09/2018 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 12/07/2016 11/29/2020 Last Assessment [...] of this encounter (statuses as of 12/19/2022) [facility] Narrative* Problem Noted Date Diagnosed Date Resolved Date Acute renal failure superimp osed on stage 4 chronic kidney disease 01/02/2020 11/29/2020 Shortness of breath 11/23/2019 11/30/19 Meralgia paresthetica of right side 02/20/2018 06/09/2018 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 12/07/2016 11/29/2020 Last Assessment [...] of this encounter (statuses as of 12/20/2022) [facility] Narrative* Problem Noted [...] of this encounter (statuses as of 12/25/2022) [facility] Past illness Narrative* Problem Noted Date Diagnosed Date Resolved Date Acute renal failure superimp osed on stage 4 chronic kidney disease 01/02/2020 11/29/2020 Shortness of breath 11/23/2019 11/30/19 Meralgia paresthetica of right side 02/20/2018 06/09/2018 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 12/07/2016 11/29/2020 Last Assessment [...] of immunosuppressed patient Plan CT abd wo Lvein culture Rectal cancer 08/29/2011 05/12/2020 Last Assessment & Plan: Had a colonoscopy in 2014 and 2015 , she will go back next year for the same Incisional hernia 12/30/2008 11/29/2020 Celiac disease 04/15/2008 05/30/2022 Malignant neoplasm of other specified sites of stomach 11/03/2004 11/03/2004 Cancer 08/31/2022 documented as of this encounter (statuses as of 12/27/2022) [facility] Narrative* Problem Noted Date Diagnosed Date Resolved Date Acute renal failure superimp osed on stage 4 chronic kidney disease 01/02/2020 11/29/2020 Shortness of breath 11/23/2019 11/30/19 21 Meralgia paresthetica of right side 02/20/2018 06/09/2018 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 12/07/2016 11/29/2020 Last Assessment [...] of this encounter (statuses as of 01/05/2023) [facility]arrative* Problem Noted [...] of this encounter (statuses as of 01/06/2023) [facility] Narrative* Problem Noted Date Diagnosed Date Resolved Date Acute renal failure superimp osed on stage 4 chronic kidney disease 01/02/2020 11/29/2020 Shortness of breath 11/23/2019 11/30/19 21 Meralgia paresthetica of right side 02/20/2018 06/09/2018 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 12/07/2016 11/29/2020 Last Assessment [...] of this encounter (statuses as of 01/06/2023) [facility] Narrative* Problem Noted Date Diagnosed Date Resolved Date Acute renal failure superimp osed on stage 4 chronic kidney disease 01/02/2020 11/29/2020 Shortness of breath 11/23/2019 11/30/19 21 Meralgia paresthetica of right side 02/20/2018 06/09/2018 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 12/07/2016 11/29/2020 Last Assessment [...] of this encounter (statuses as of 01/09/2023) [facility] Past illness Narrative* Problem Noted Date Diagnosed Date Resolved Date Acute renal failure superimp osed on stage 4 chronic kidney disease 01/02/2020 11/29/2020 Shortness of breath 11/23/2019 11/30/19 21 Meralgia paresthetica of right side 02/20/2018 06/09/2018 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 12/07/2016 11/29/2020 Last Assessment [...] of this encounter (statuses as of 01/10/2023) [facility] Narrative* Problem Noted Date Diagnosed Date Resolved Date Acute renal failure superimp osed on stage 4 chronic kidney disease 01/02/2020 11/29/2020 Shortness of breath 11/23/2019 11/30/19 21 Meralgia paresthetica of right side 02/20/2018 06/09/2018 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 12/07/2016 11/29/2020 Last Assessment [...] of this encounter (statuses as of 01/10/2023) [facility]ative* Problem Noted [...] of this encounter (statuses as of 01/11/2023) [facility]ative* Problem Noted [...] of this encounter (statuses as of 01/11/2023) [facility] Past [facility] Narrative* Problem Noted Date Diagnosed Date Resolved Date Acute renal failure superimp osed on stage 4 chronic kidney disease 01/02/2020 11/29/2020 Shortness of breath 11/23/2019 11/30/19 21 Meralgia paresthetica of right side 02/20/2018 06/09/2018 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 12/07/2016 11/29/2020 Last Assessment [...] of this encounter (statuses as of 01/15/2023) [facility]arrative* Problem Noted [...] of this encounter (statuses as of 01/15/2023) [facility]* Problem Noted [...] of this encounter (statuses as of 01/15/2023) [facility] Narrative* Problem Noted Date Diagnosed Date Resolved Date Acute renal failure superimp osed on stage 4 chronic kidney disease 01/02/2020 11/29/2020 Shortness of breath 11/23/2019 11/30/19 21 Meralgia paresthetica of right side 02/20/2018 06/09/2018 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 12/07/2016 11/29/2020 Last Assessment [...] of this encounter (statuses as of 01/17/2023) [facility]arrative* Problem Noted Date Diagnosed Date Resolved Date Acute renal failure superimp osed on stage 4 chronic kidney disease 01/02/2020 11/29/2020 Shortness of breath 11/23/2019 11/30/19 21 Meralgia paresthetica of right side 02/20/2018 06/09/2018 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 12/07/2016 11/29/2020 Last Assessment [...] of this encounter (statuses as of 01/18/2023) [facility] History of Past illness Narrative* Problem Noted [...] of this encounter (statuses as of 01/22/2023) [facility] History of Past illness Narrative* Problem Noted Date Diagnosed Date Resolved Date Acute renal failure superimp osed on stage 4 chronic kidney disease 01/02/2020 11/29/2020 Shortness of breath 11/23/2019 11/30/19 21 Meralgia paresthetica of right side 02/20/2018 06/09/2018 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 12/07/2016 11/29/2020 Last Assessment [...] of this encounter (statuses as of 02/12/2023) [facility] History of Past illness Narrative* Problem Noted [...] of this encounter (statuses as of 02/12/2023) [facility] Diagnosis Type 2 diabetes mellitus with microalbuminuria, with long-term current use of insulin (HCC)- Primary Medication management Encounter for long-term (current) use of other medications [facility] Diagnosis Bilateral wrist pain- Primary [...] Stage IV (severe) [facility] [place] [facility] Diagnosis Localized swelling, mass, or lump of right lower extremity [facility] [place] [facility]* Diagnosis Lump of right thigh- Primary Type 2 diabetes mellitus with hyperosmolar coma, with long-term current use of insulin ([facility]) [facility] [place] [facility] Diagnosis Type 2 diabetes mellitus with microalbuminuria, with long-term current use of insulin ([facility])- Primary [facility] [place] [facility]* Diagnosis Abnormal vaginal bleeding- Primary Other specified noninflammatory disorder of vagina Chronic edema Edema Sleep disturbances Sleep disturbance, unspecified Acute otitis externa of right ear, unspecified type Pelvic cramping Unspecified symptom associated with female genital organs [facility] [place] [facility] Diagnosis Abnormal vaginal bleeding- Primary Other specified noninflammatory disorder of vagina [facility] [place] [facility] Diagnosis Abnormal vaginal bleeding Other specified noninflammatory disorder of vagina [facility] [place] [facility]* Diagnosis Type 2 diabetes mellitus with microalbuminuria, with long-term current use of insulin ([facility])- Primary Medication management Encounter for long-term (current) use of other medications [facility] [place] [facility]* Diagnosis History of recent hospitalization- Primary Personal history of unspecified disease Diarrhea, unspecified type Lower abdominal pain Abdominal pain, other specified site Hyperkalemia Hyperpotassemia Cellulitis, unspecified cellulitis site Anemia of chronic kidney failure, stage 4 (severe) ([facility]) [facility] [place] [facility]* Diagnosis Diarrhea, unspecified type- Primary [facility] [place] [facility]* Diagnosis Acquired hypothyroidism Unspecified hypothyroidism [facility] [place] [facility] Diagnosis Chronic edema Edema [facility] [place] [facility]* Diagnosis Diarrhea, unspecified type- Primary Right wrist pain Pain in joint, forearm [facility] [place] [facility]* Diagnosis Dermatitis Contact dermatitis and other eczema, due to unspecified cause [facility] [place] [facility] Diagnosis Dermatitis- Primary Contact dermatitis and other eczema, due to unspecified cause Itching Unspecified pruritic disorder [facility] [place] [facility]* Diagnosis 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)- Primary Type II or unspecified type diabetes mellitus with renal manifestations, not stated as uncontrolled Pre-transplant evaluation for ESRD (end stage renal disease) Other specified pre-operative examination Hypertension, unspecified type [facility] [place] [facility] Diagnosis Disorder of liver- Primary Unspecified disorder of liver Liver replaced by transplant (HCC) Liver replaced by transplant [facility] [place] [facility]* Diagnosis Type 2 diabetes mellitus with hyperosmolarity 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, with long-term current use of insulin (HCC)- Primary End stage kidney disease (HCC) End stage renal disease Dizziness Dizziness and giddiness Hypotension, unspecified hypotension type Other fatigue Acquired hypothyroidism Unspecified hypothyroidism Chronic diarrhea Diarrhea Liver replaced by transplant (HCC) Liver replaced by transplant [facility] [place] [facility]* Diagnosis Diarrhea, unspecified type- Primary documented [facility] [place] [facility]* Diagnosis Encounter for screening mammogram for breast cancer documented in this [facility] [place] [facility]* Diagnosis Hypothyroidism, unspecified type documented [facility] [place] [facility]* Diagnosis Pre-transplant evaluation for kidney transplant- Primary Other specified pre-operative examination [facility] [place] [facility]* Diagnosis Type 2 diabetes mellitus with microalbuminuria, with long-term current use of insulin (HCC)- Primary [facility] [place] [facility]* Diagnosis Type 2 diabetes mellitus with hyperosmolarity 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, with long-term current use of insulin (HCC)- Primary [facility] [place] [facility]* Diagnosis Type 2 diabetes mellitus with microalbuminuria, with long-term current use of insulin (HCC)- Primary [facility] [place] [facility]* Diagnosis Hypothyroidism, unspecified type Diarrhea, unspecified type Sleep disturbances Sleep disturbance, unspecified Mixed hyperlipidemia Chronic edema Edema [facility] [place] [facility]* Diagnosis Right wrist pain Pain in joint, forearm documented [facility] [place] [facility]* Diagnosis Type 2 diabetes mellitus with hyperosmolarity 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, with long-term current use of insulin (HCC)- Primary [facility] [place] [facility]* Diagnosis Pre-transplant evaluation for kidney transplant- Primary Other specified pre-operative examination [facility] Diagnosis Chronic pain of both knees- Primary [facility] Diagnosis Pre-transplant evaluation for ESRD (end stage renal disease)- Primary Other specified pre-operative examination Liver transplant recipient (HCC) ESRD on dialysis (HCC) End stage renal disease Coronary artery disease involving igiugig coronary artery of igiugig heart without angina pectoris Type 2 diabetes mellitus with hyperosmolarity 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, with long-term current use of insulin ([facility]) Primary hypertension Unspecified essential hypertension [facility] Diagnosis Awaiting organ transplant- Primary Awaiting organ transplant status Dietary counseling and surveillance Dietary surveillance and counseling [facility]* Diagnosis Type 2 diabetes mellitus with hyperosmolarity 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, with long-term current use of insulin (HCC)- Primary [facility] Diagnosis Dermatitis Contact dermatitis and other eczema, due to unspecified cause [facility]* Diagnosis Pre-transplant evaluation for end [...] Fall, initial encounter [facility]* Diagnosis Type 2 diabetes mellitus with hyperosmolarity 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, with long-term current use of insulin ([facility]) [facility]* Diagnosis Left knee pain, unspecified [...] coma, with long-term current use of insulin ([facility]) [facility] [place] [facility]* Diagnosis Type 2 diabetes mellitus with hyperosmolarity 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, with long-term current use of insulin (HCC) [facility] Diagnosis Encounter for screening for osteoporosis Special screening for osteoporosis Asymptomatic postmenopausal status [facility] Diagnosis Encounter for screening mammogram for breast cancer documented [facility] [place] [facility]* Diagnosis Epigastric pain- Primary Abdominal pain, epigastric Nausea Nausea alone Left knee pain, unspecified chronicity Medication management Encounter for long-term (current) use of other medications Encounter for immunization Need for other specified prophylactic vaccination against single bacterial disease [facility] [place] [facility]* Diagnosis Liver replaced by transplant (HCC)- Primary Liver replaced by transplant [facility] [place] [facility]* Diagnosis Preop cardiovascular exam- Primary Pre-operative cardiovascular examination [facility] [place] [facility]* Diagnosis Sleep disturbances Sleep disturbance, unspecified documented in this encounter [facility] for referral (narrative)* Diagnostic Procedure Only (Routine) - Closed Specialty Diagnoses / Procedures Referred By Ibrahima dick Referred To Contact XR IMAGING Diagnoses Bilateral wrist pain Chronic pain of left wrist Acute pain of right wrist Procedures XR HAND GENERAL 3V PA/LAT/OBL BILATERAL RADEX HAND MINIMUM 3 VIEWS Josse Lance APRN.[employer] [address] [place] [address] Xr Imaging Referral ID Status Reason Start Date Expiration Date V isits Requested Visits Authorized [id number] Closed Auto-Generate d Referral 07/03/2021 08/02/2022 1 1 * Consult, Test, Treat (Routine) - Pending Review Specialty Diagnoses / Procedures Referred By Ibrahima dick Referred To Contact Orthopedics Diagnoses Bilateral wrist pain Chronic pain of left wrist Acute pain of right wrist Procedures CONSULT TO ORTHOPAEDICS OFFICE/OUTPATIENT [facility] MDM 60-74 MINUTES Josse Lance APRN.[employer] [address] [place] [address] Referral ID Status Reason Start Date Expiration Date Visits Requested Visits Authorized [id number] Pending Review PCP Requested Referral 07/03/2021 07/03/2022 1 1 * Diagnostic Procedure Only (Routine) - Closed Specialty Diagnoses / Procedures Referred By Contac t Referred To Contact XR IMAGING Diagnoses Bilateral wrist pain Chronic pain of left wrist Acute pain of right wrist Procedures XR HAND GENERAL 3V PA/LAT/OBL LEFT RADEX HAND MINIMUM 3 VIEWS Josse Lance APRN.[employer] [address] [place] [address] Xr Imaging Referral ID Status Reason Start Date Expiration Date V isits Requested Visits Authorized [id number] Closed Auto-Generate d Referral 07/03/2021 08/02/2022 1 1 * Diagnostic Procedure Only (Routine) - Closed Specialty Diagnoses / Procedures Referred By Contac t Referred To Contact XR IMAGING Diagnoses Bilateral wrist pain Chronic pain of left wrist Acute pain of right wrist Procedures XR HAND GENERAL 3V PA/LAT/OBL RIGHT RADEX HAND MINIMUM 3 VIEWS Josse Lance APRN.[employer] [address] [place] [address] Xr Imaging Referral ID Status Reason Start Date Expiration Date V isits Requested Visits Authorized [id number] Closed Auto-Generate d Referral 07/03/2021 08/02/2022 1 1 [facility] for referral (narrative)* Outpatient Procedure (Urgent) - Authorized Specialty Diagnoses / Procedures Referred By Contac t Referred To Contact [facility] Diagnoses Redness and swelling of thigh Swelling of limb Procedures US LEG VEIN DVT UNL VAS LAB DUP-SCAN XTR VEINS UNILATERAL/LIMITED STUDY Jame Hunt MD [address] [place] [address] [facility] [place] [address] [place] [address] Referral ID Status Reason Start Date Expiration Date Visits Requested Visits Authorized [id number] Authorized Auto-Generat ed Referral 08/14/2021 03/03/2022 1 1 [facility] for referral (narrative)* Diagnostic Procedure Only (Routine) - Authorized Specialty Diagnoses / Procedures Referred By Contac t Referred To Contact US IMAGING Diagnoses Lump of right thigh Tenderness of right lower extremity Procedures US EXTREMITY MASS/FLUID COLLECTION RT Silva Plasencia APRN.SHIP/REC/DOC CONTROL [address] [place] [address] Us Imaging Referral ID Status Reason Start Date Expiration Date Visits Requested Visits Authorized [id number] Authorized Auto-Generat ed Referral 08/25/2021 09/24/2022 1 1 [facility] for referral (narrative)* Diagnostic Procedure Only (Routine) - Closed Specialty Diagnoses / Procedures Referred By Contac t Referred To Contact MR IMAGING Diagnoses Localized swelling, mass, or lump of right lower extremity Procedures MRI UPPER LEG WO/W IVCON RT MRI LOWER EXTREM OTH/THN JT W/O & W/CONTR MATR Silva Plasencia APRN.SHIP/REC/DOC CONTROL [address] [place] [address] Mr Imaging Referral ID Status Reason Start Date Expiration Date Visits Re quested Visits Authorized [id number] Closed 09/21/2021 10/21/2021 1 1 [facility] for referral (narrative)* Diagnostic Procedure Only (Urgent) - Pending Review Specialty Diagnoses / Procedures Referred By Contac t Referred To Contact US IMAGING Diagnoses Abnormal vaginal bleeding Procedures US FEMALE PELVIS TRANSABD LTD US PELVIC NONOBSTETRIC IMAGE DCMTN LIMITED/F/U Jaci Lucero APRN.SHIP/REC/DOC CONTROL [address] [place] [address] Us Imaging Referral ID Status Reason Start Date Expiration Date Visits Requested Visits Authorized [id number] Pending Review Auto-Generat ed Referral 10/20/2021 11/19/2022 1 1 * Diagnostic Procedure Only (Routine) - Closed Specialty Diagnoses / Procedures Referred By Contac t Referred To Contact US IMAGING Diagnoses Abnormal vaginal bleeding Procedures US FEMALE PELVIS TRANSABD LTD US PELVIC NONOBSTETRIC IMAGE DCMTN LIMITED/F/U Jaci Lucero APRN.SHIP/REC/DOC CONTROL [address] [place] [address] Us Imaging Referral ID Status Reason Start Date Expiration Date V isits Requested Visits Authorized [id number] Closed Auto-Generate d Referral 10/20/2021 11/19/2022 1 1 [facility] for referral (narrative)* Diagnostic Procedure Only (Routine) - Closed Specialty Diagnoses / Procedures Referred By Contac t Referred To Contact US IMAGING Diagnoses Abnormal vaginal bleeding Procedures US FEMALE PELVIS TRANSVAG US TRANSVAGINAL Jaci Lucero APRN.SHIP/REC/DOC CONTROL [address] [place] [address] Us Imaging Referral ID Status Reason Start Date Expiration Date V isits Requested Visits Authorized [id number] Closed Auto-Generate d Referral 10/20/2021 11/19/2022 1 1 [facility] for referral (narrative)* Diagnostic Procedure Only (Routine) - Closed Specialty Diagnoses / Procedures Referred By Contac t Referred To Contact US IMAGING Diagnoses Abnormal vaginal bleeding Procedures US FEMALE PELVIS TRANSVAG US TRANSVAGINAL Jaci Lucero APRN.SHIP/REC/DOC CONTROL [address] [place] [address] Us Imaging Referral ID Status Reason Start Date Expiration Date V isits Requested Visits Authorized [id number] Closed Auto-Generate d Referral 10/20/2021 11/19/2022 1 1 * Diagnostic Procedure Only (Routine) - Closed Specialty Diagnoses / Procedures Referred By Contac t Referred To Contact US IMAGING Diagnoses Abnormal vaginal bleeding Procedures US FEMALE PELVIS TRANSABD LTD US PELVIC NONOBSTETRIC IMAGE DCMTN LIMITED/F/U Jaci Lucero APRN.SHIP/REC/DOC CONTROL [address] [place] [address] Us Imaging Referral ID Status Reason Start Date Expiration Date V isits Requested Visits Authorized [id number] Closed Auto-Generate d Referral 10/20/2021 11/19/2022 1 1 [facility] for referral (narrative)* Diagnostic Procedure Only (Routine) - Authorized Specialty Diagnoses / Procedures Referred By Contac t Referred To Contact BR IMAGING Diagnoses Encounter for screening mammogram for breast cancer Procedures JAY SCREENING SCREENING MAMMOGRAPHY BI 2-VIEW BREAST INC Jame Bustos MD [address] [place] [address] [facility] [address] [place] [address] Referral ID Status Reason Start Date Expiration Date Visits Requested Visits Authorized [id number] Authorized Auto-Generat ed Referral 05/02/2022 06/01/2023 1 1 [facility] for referral (narrative)* Diagnostic Procedure Only (Urgent) - Closed Specialty Diagnoses / Procedures Referred By Contac t Referred To Contact XR IMAGING Diagnoses Left hip pain Fall, initial encounter Procedures XR HIP GENERAL 3V PELV/AP/LAT LEFT RADEX HIP UNILATERAL WITH PELVIS 2-3 VIEWS Erin Plasencia APRN.SHIP/REC/DOC CONTROL [address] [place] [address] [place] [address] Referral ID Status Reason Start Date Expiration Date V isits Requested Visits Authorized [id number] Closed Auto-Generate d Referral 11/07/2022 12/07/2023 1 1 [facility] for referral (narrative)* Diagnostic Procedure Only (Routine) - Closed Specialty Diagnoses / Procedures Referred By Contac t Referred To Contact XR IMAGING Diagnoses Left hip pain Left knee pain, unspecified chronicity Procedures XR KNEE GENERAL 4V AP BOTH/PA BOTH/LAT/MERC LEFT RADIOLOGIC EXAM KNEE COMPLETE 4/MORE VIEWS Ramin Mack PA-C [address] [place] [address] [place] [address] Referral ID Status Reason Start Date Expiration Date V isits Requested Visits Authorized [id number] Closed Auto-Generate d Referral 11/26/2022 12/26/2023 1 1 * Consult, Test, Treat (Routine) - Pending Review Specialty Diagnoses / Procedures Referred By Geminiac t Referred To Contact Orthopedics Diagnoses Left hip pain Left knee pain, unspecified chronicity Procedures CONSULT TO ORTHOPAEDICS OFFICE/OUTPATIENT [facility] 60-74 MINUTES Charbel Esparza MD [address] [place] [id number] Referral ID Status Reason Start Date Expiration Date Visits Requested Visits Authorized [id number] Pending Review PCP Requested Referral 11/26/2022 11/26/2023 1 1 [facility] for referral (narrative)* Diagnostic Procedure Only (Routine) - Closed Specialty Diagnoses / Procedures Referred By Ibrahima t Referred To Contact BR IMAGING Diagnoses Encounter for screening mammogram for breast cancer Procedures JAY SCREENING SCREENING MAMMOGRAPHY BI 2-VIEW BREAST INC CAD Jame Hunt MD [address] [place] [address] [facility] [address] [place] [address] Referral ID Status Reason Start Date Expiration Date V isits Requested Visits Authorized [id number] Closed Auto-Generate d Referral 05/02/2022 06/01/2023 1 1 [facility] for visit Narrative* Diagnostic Procedure Only (Routine) - Closed Specialty Diagnoses / Procedures Referred By Contac t Referred To Contact MR IMAGING Diagnoses Localized swelling, mass, or lump of right lower extremity Procedures MRI UPPER LEG WO/W IVCON RT MRI LOWER EXTREM OTH/THN JT W/O & W/CONTR Silva Rowland APRN.SHIP/REC/DOC CONTROL [address] [place] [address] Mr Imaging Referral ID Status Reason Start Date Expiration Date Visits Re quested Visits Authorized [id number] Closed 09/21/2021 10/21/2021 1 1 [facility] Diagnostic Procedure Only (Routine) - Closed Specialty Diagnoses / Procedures Referred By Ibrahima dick Referred To Contact BR IMAGING Diagnoses Encounter for screening mammogram for breast cancer Procedures JAY SCREENING SCREENING MAMMOGRAPHY BI 2-VIEW BREAST INC Jame Bustos MD [address] [place] [address] [facility] [address] [place] [address] Referral ID Status Reason Start Date Expiration Date V isits Requested Visits Authorized [id number] Closed Auto-Generate d Referral 05/02/2022 06/01/2023 1 1 [facility] Summary Purpose Family History No Family History Records FoundNo Family History Records FoundNo Family History Records FoundNo Family History Records FoundNo Family History Records Found Advance Directives No Advanced Directives Records FoundDocuments on File Type Date 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) Advance Directive(s) 04/25/2021 [...] Documents on File Type Date Recorded 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) Advance Directive(s) 04/25/2021 [...] Documents on File Type Date Recorded 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) Advance Directive(s) 07/30/2018 8:17 AM Documents on File Type Date Recorded 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) Advance Directive(s) 07/30/2018 [...] OTH/THN JT W/O & W/CONTR Silva Rowland APRN.SHIP/REC/DOC CONTROL [address] [place] [address] Mr Imaging Referral ID Status Reason Start Date Expiration Date Visits Requested Visits Authorized [id number] Pending Review Auto-Generat ed Referral 09/06/2021 10/06/2022 1 1 Specialty Diagnoses / Procedures Referred By Ibrahima dick Referred To Contact TRANSPLANT Diagnoses 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) Pre-transplant evaluation for ESRD (end stage renal disease) Hypertension, unspecified type Procedures CONSULT TO [facility] C[facility] OFFICE/OUTPATIENT [facility] MDM 60-74 MINUTES CHEST X-RAY, FRONT&LAT ECG ROUTINE ECG W/LEAST 12 LDS TRCG ONLY W/O I&R CT ANGIOGRAPHY CHEST W/CONTRAST/NONCONTRAST CT ABDOMEN W & W/O CONTRAST Ricki Dc MD [address] [place] [address] [place] [address] [facility] [address] [place] [address] Referral ID Status Reason Start Date Expiration Date Visits Requested Visits Authorized [id number] Pending Review Financial Clearance Required - [employer] 04/24/2022 04/24/2023 99 99 Specialty Diagnoses / Procedures Referred By Contac t Referred To Contact Gastroenterology Diagnoses Chronic diarrhea Procedures CONSULT TO GASTROENTEROLOGY OFFICE/OUTPATIENT [facility] 60-74 MINUTES Silva Plasencia APRN.SHIP/REC/DOC CONTROL [address] [place] [address] Referral ID Status Reason Start Date Expiration Date Visits Requested Visits Authorized [id number] Pending Review PCP Requested Referral 05/02/2022 05/02/2023 1 1 Specialty Diagnoses / Procedures Referred By Contac t Referred To Contact Erin Plasencia APRN.SHIP/REC/DOC CONTROL [address] [place] [address] Referral ID Status Reason Start Date Expiration Date Visits Re quested Visits Authorized [id number] Closed 1 1 Referral ID Status Reason Start Date Expiration Date Visits Re quested Visits Authorized [id number] Closed 1 1 Specialty Diagnoses / Procedures Referred By Contac t Referred To Contact Gastroenterology Diagnoses Pre-transplant evaluation for end stage renal disease Awaiting organ transplant Procedures CONSULT TO GASTROENTEROLOGY OFFICE/OUTPATIENT [facility] MDM 60-74 MINUTES Kel Victoria MD [address] [place] [address] Referral ID Status Reason Start Date Expiration Date Visits Requested Visits Authorized [id number] Pending Review PCP Requested Referral 10/03/2022 09/26/2023 1 1 Specialty Diagnoses / Procedures Referred By Contac t Referred To Contact Cardiology Diagnoses Pre-transplant evaluation for end stage renal disease Pre-operative cardiovascular examination History of heart artery stent Procedures CONSULT TO CARDIOLOGY OFFICE/OUTPATIENT [facility] 60-74 MINUTES Kel Victoria MD [address] [place] [address] Referral ID Status Reason Start Date Expiration Date Visits Requested Visits Authorized [id number] Pending Review PCP Requested Referral 10/03/2022 09/26/2023 1 1 Specialty Diagnoses / Procedures Referred By Contac t Referred To Contact Diagnoses Type 2 diabetes mellitus with hyperosmolarity 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, with long-term current use of insulin (HCC) Ramin Mack PA-C [address] [place] [address] Referral ID Status Reason Start Date Expiration Date Visits Re quested Visits Authorized [id number] Closed 1 1 Specialty Diagnoses / Procedures Referred By Contac t Referred To Contact Diagnoses Pre-transplant evaluation for kidney transplant Procedures CONSULT TO HEPATOLOGY OFFICE/OUTPATIENT [facility] 60-74 MINUTES Kel Victoria MD [address] [place] [address] Referral ID Status Reason Start Date Expiration Date Visits Requested Visits Authorized [id number] Pending Review PCP Requested Referral 12/19/2023 1 1 Specialty Diagnoses / Procedures Referred By Contac t Referred To Contact Diagnoses Preop cardiovascular exam Procedures CARDIOVASCULAR MEDICINE OP FOLLOW UP APPT ORDER Lizeth Bey MD [address] [place] [address] Referral ID Status Reason Start Date Expiration Date Visits Requested Visits Authorized [id number] Ref Not Required PCP Requested Referral 01/10/2023 01/10/2024 1 1 Additional Source Comments INFORMATION SOURCE (unrecogn ized section and content) DATE CREATED AUTHOR AUTHOR'S ORGANIZ ATION 12/07/2019 [facility] DATE CREATED AUTHOR AUTHOR'S ORGANIZ ATION 05/03/2020 [facility] DATE CREATED AUTHOR AUTHOR'S ORGANIZ ATION 01/12/2023 [facility] DATE CREATED AUTHOR AUTHOR'S ORGANIZ ATION 02/28/[address] [facility] Source Comments (unrecognize d section and content) In the event this informatio n is protected by the Federal Confidentiality of Alcohol and Drug Abuse Patient Records regulations: The Federal rules restrict any use of the information to criminally investigate or prosecute any alcohol or drug abuse patient.[facility] the event this information is protected by the Federal Confidentiality of Alcohol and Drug Abuse Patient Records regulations: The Federal rules restrict any use of the information to criminally investigate or prosecute any alcohol or drug abuse patient.[facility] the event this information is protected by the Federal Confidentiality of Alcohol and Drug Abuse Patient Records regulations: The Federal rules restrict any use of the information to criminally investigate or prosecute any alcohol or drug abuse patient.[facility]In the event this information is protected by the Federal Confidentiality of Alcohol and Drug Abuse Patient Records regulations: The Federal rules restrict any use of the information to criminally investigate or prosecute any alcohol or drug abuse patient.[facility]In the event this information is protected by the Federal Confidentiality of Alcohol and Drug Abuse Patient Records regulations: The Federal rules restrict any use of the information to criminally investigate or prosecute any alcohol or drug abuse patient.[facility]In the event this information is protected by the Federal Confidentiality of Alcohol and Drug Abuse Patient Records regulations: The Federal rules restrict any use of the information to criminally investigate or prosecute any alcohol or drug abuse patient.[facility]In the event this information is protected by the Federal Confidentiality of Alcohol and Drug Abuse Patient Records regulations: The Federal rules restrict any use of the information to criminally investigate or prosecute any alcohol or drug abuse patient.[facility] CenterIn the event this information is protected by the Federal Confidentiality of Alcohol and Drug Abuse Patient Records regulations: The Federal rules restrict any use of the information to criminally investigate or prosecute any alcohol or drug abuse patient.[facility] CenterIn the event this information is protected by the Federal Confidentiality of Alcohol and Drug Abuse Patient Records regulations: The Federal rules restrict any use of the information to criminally investigate or prosecute any alcohol or drug abuse patient.[facility] CenterIn the event this information is protected by the Federal Confidentiality of Alcohol and Drug Abuse Patient Records regulations: The Federal rules restrict any use of the information to criminally investigate or prosecute any alcohol or drug abuse patient.[facility] CenterIn the event this information is protected by the Federal Confidentiality of Alcohol and Drug Abuse Patient Records regulations: The Federal rules restrict any use of the information to criminally investigate or prosecute any alcohol or drug abuse patient.[facility] CenterIn the event this information is protected by the Federal Confidentiality of Alcohol and Drug Abuse Patient Records regulations: The Federal rules restrict any use of the information to criminally investigate or prosecute any alcohol or drug abuse patient.[facility] CenterIn the event this information is protected by the Federal Confidentiality of Alcohol and Drug Abuse Patient Records regulations: The Federal rules restrict any use of the information to criminally investigate or prosecute any alcohol or drug abuse patient.[facility] CenterIn the event this information is protected by the Federal Confidentiality of Alcohol and Drug Abuse Patient Records regulations: The Federal rules restrict any use of the information to criminally investigate or prosecute any alcohol or drug abuse patient.[facility] CenterIn the event this information is protected by the Federal Confidentiality of Alcohol and Drug Abuse Patient Records regulations: The Federal rules restrict any use of the information to criminally investigate or prosecute any alcohol or drug abuse patient.[facility] CenterIn the event this information is protected by the Federal Confidentiality of Alcohol and Drug Abuse Patient Records regulations: The Federal rules restrict any use of the information to criminally investigate or prosecute any alcohol or drug abuse patient.[facility] CenterIn the event this information is protected by the Federal Confidentiality of Alcohol and Drug Abuse Patient Records regulations: The Federal rules restrict any use of the information to criminally investigate or prosecute any alcohol or drug abuse patient.[facility] CenterIn the event this information is protected by the Federal Confidentiality of Alcohol and Drug Abuse Patient Records regulations: The Federal rules restrict any use of the information to criminally investigate or prosecute any alcohol or drug abuse patient.[facility] CenterIn the event this information is protected by the Federal Confidentiality of Alcohol and Drug Abuse Patient Records regulations: The Federal rules restrict any use of the information to criminally investigate or prosecute any alcohol or drug abuse patient.[facility] CenterIn the event this information is protected by the Federal Confidentiality of Alcohol and Drug Abuse Patient Records regulations: The Federal rules restrict any use of the information to criminally investigate or prosecute any alcohol or drug abuse patient.[facility] CenterIn the event this information is protected by the Federal Confidentiality of Alcohol and Drug Abuse Patient Records regulations: The Federal rules restrict any use of the information to criminally investigate or prosecute any alcohol or drug abuse patient.[facility] CenterIn the event this information is protected by the Federal Confidentiality of Alcohol and Drug Abuse Patient Records regulations: The Federal rules restrict any use of the information to criminally investigate or prosecute any alcohol or drug abuse patient.[facility] CenterIn the event this information is protected by the Federal Confidentiality of Alcohol and Drug Abuse Patient Records regulations: The Federal rules restrict any use of the information to criminally investigate or prosecute any alcohol or drug abuse patient.[facility] CenterIn the event this information is protected by the Federal Confidentiality of Alcohol and Drug Abuse Patient Records regulations: The Federal rules restrict any use of the information to criminally investigate or prosecute any alcohol or drug abuse patient.[facility] CenterIn the event this information is protected by the Federal Confidentiality of Alcohol and Drug Abuse Patient Records regulations: The Federal rules restrict any use of the information to criminally investigate or prosecute any alcohol or drug abuse patient.[facility] CenterIn the event this information is protected by the Federal Confidentiality of Alcohol and Drug Abuse Patient Records regulations: The Federal rules restrict any use of the information to criminally investigate or prosecute any alcohol or drug abuse patient.[facility] CenterIn the event this information is protected by the Federal Confidentiality of Alcohol and Drug Abuse Patient Records regulations: The Federal rules restrict any use of the information to criminally investigate or prosecute any alcohol or drug abuse patient.[facility] CenterIn the event this information is protected by the Federal Confidentiality of Alcohol and Drug Abuse Patient Records regulations: The Federal rules restrict any use of the information to criminally investigate or prosecute any alcohol or drug abuse patient.[facility] CenterIn the event this information is protected by the Federal Confidentiality of Alcohol and Drug Abuse Patient Records regulations: The Federal rules restrict any use of the information to criminally investigate or prosecute any alcohol or drug abuse patient.[facility] CenterIn the event this information is protected by the Federal Confidentiality of Alcohol and Drug Abuse Patient Records regulations: The Federal rules restrict any use of the information to criminally investigate or prosecute any alcohol or drug abuse patient.[facility] CenterIn the event this information is protected by the Federal Confidentiality of Alcohol and Drug Abuse Patient Records regulations: The Federal rules restrict any use of the information to criminally investigate or prosecute any alcohol or drug abuse patient.[facility] CenterIn the event this information is protected by the Federal Confidentiality of Alcohol and Drug Abuse Patient Records regulations: The Federal rules restrict any use of the information to criminally investigate or prosecute any alcohol or drug abuse patient.[facility] CenterIn the event this information is protected by the Federal Confidentiality of Alcohol and Drug Abuse Patient Records regulations: The Federal rules restrict any use of the information to criminally investigate or prosecute any alcohol or drug abuse patient.[facility] CenterIn the event this information is protected by the Federal Confidentiality of Alcohol and Drug Abuse Patient Records regulations: The Federal rules restrict any use of the information to criminally investigate or prosecute any alcohol or drug abuse patient.[facility] CenterIn the event this information is protected by the Federal Confidentiality of Alcohol and Drug Abuse Patient Records regulations: The Federal rules restrict any use of the information to criminally investigate or prosecute any alcohol or drug abuse patient.[facility] CenterIn the event this information is protected by the Federal Confidentiality of Alcohol and Drug Abuse Patient Records regulations: The Federal rules restrict any use of the information to criminally investigate or prosecute any alcohol or drug abuse patient.[facility] CenterIn the event this information is protected by the Federal Confidentiality of Alcohol and Drug Abuse Patient Records regulations: The Federal rules restrict any use of the information to criminally investigate or prosecute any alcohol or drug abuse patient.[facility] CenterIn the event this information is protected by the Federal Confidentiality of Alcohol and Drug Abuse Patient Records regulations: The Federal rules restrict any use of the information to criminally investigate or prosecute any alcohol or drug abuse patient.[facility] CenterIn the event this information is protected by the Federal Confidentiality of Alcohol and Drug Abuse Patient Records regulations: The Federal rules restrict any use of the information to criminally investigate or prosecute any alcohol or drug abuse patient.[facility] the event this information is protected by the Federal Confidentiality of Alcohol and Drug Abuse Patient Records regulations: The Federal rules restrict any use of the information to criminally investigate or prosecute any alcohol or drug abuse patient.[facility] CenterIn the event this information is protected by the Federal Confidentiality of Alcohol and Drug Abuse Patient Records regulations: The Federal rules restrict any use of the information to criminally investigate or prosecute any alcohol or drug abuse patient.[facility] CenterIn the event this information is protected by the Federal Confidentiality of Alcohol and Drug Abuse Patient Records regulations: The Federal rules restrict any use of the information to criminally investigate or prosecute any alcohol or drug abuse patient.[facility] CenterIn the event this information is protected by the Federal Confidentiality of Alcohol and Drug Abuse Patient Records regulations: The Federal rules restrict any use of the information to criminally investigate or prosecute any alcohol or drug abuse patient.[facility] CenterIn the event this information is protected by the Federal Confidentiality of Alcohol and Drug Abuse Patient Records regulations: The Federal rules restrict any use of the information to criminally investigate or prosecute any alcohol or drug abuse patient.[facility] CenterIn the event this information is protected by the Federal Confidentiality of Alcohol and Drug Abuse Patient Records regulations: The Federal rules restrict any use of the information to criminally investigate or prosecute any alcohol or drug abuse patient.[facility] CenterIn the event this information is protected by the Federal Confidentiality of Alcohol and Drug Abuse Patient Records regulations: The Federal rules restrict any use of the information to criminally investigate or prosecute any alcohol or drug abuse patient.[facility] CenterIn the event this information is protected by the Federal Confidentiality of Alcohol and Drug Abuse Patient Records regulations: The Federal rules restrict any use of the information to criminally investigate or prosecute any alcohol or drug abuse patient.[facility] CenterIn the event this information is protected by the Federal Confidentiality of Alcohol and Drug Abuse Patient Records regulations: The Federal rules restrict any use of the information to criminally investigate or prosecute any alcohol or drug abuse patient.[facility] CenterIn the event this information is protected by the Federal Confidentiality of Alcohol and Drug Abuse Patient Records regulations: The Federal rules restrict any use of the information to criminally investigate or prosecute any alcohol or drug abuse patient.[facility] CenterIn the event this information is protected by the Federal Confidentiality of Alcohol and Drug Abuse Patient Records regulations: The Federal rules restrict any use of the information to criminally investigate or prosecute any alcohol or drug abuse patient.[facility] CenterIn the event this information is protected by the Federal Confidentiality of Alcohol and Drug Abuse Patient Records regulations: The Federal rules restrict any use of the information to criminally investigate or prosecute any alcohol or drug abuse patient.[facility] CenterIn the event this information is protected by the Federal Confidentiality of Alcohol and Drug Abuse Patient Records regulations: The Federal rules restrict any use of the information to criminally investigate or prosecute any alcohol or drug abuse patient.[facility] CenterIn the event this information is protected by the Federal Confidentiality of Alcohol and Drug Abuse Patient Records regulations: The Federal rules restrict any use of the information to criminally investigate or prosecute any alcohol or drug abuse patient.[facility] CenterIn the event this information is protected by the Federal Confidentiality of Alcohol and Drug Abuse Patient Records regulations: The Federal rules restrict any use of the information to criminally investigate or prosecute any alcohol or drug abuse patient.[facility] CenterIn the event this information is protected by the Federal Confidentiality of Alcohol and Drug Abuse Patient Records regulations: The Federal rules restrict any use of the information to criminally investigate or prosecute any alcohol or drug abuse patient.[facility] CenterIn the event this information is protected by the Federal Confidentiality of Alcohol and Drug Abuse Patient Records regulations: The Federal rules restrict any use of the information to criminally investigate or prosecute any alcohol or drug abuse patient.[facility] CenterIn the event this information is protected by the Federal Confidentiality of Alcohol and Drug Abuse Patient Records regulations: The Federal rules restrict any use of the information to criminally investigate or prosecute any alcohol or drug abuse patient.[facility] CenterIn the event this information is protected by the Federal Confidentiality of Alcohol and Drug Abuse Patient Records regulations: The Federal rules restrict any use of the information to criminally investigate or prosecute any alcohol or drug abuse patient.[facility] CenterIn the event this information is protected by the Federal Confidentiality of Alcohol and Drug Abuse Patient Records regulations: The Federal rules restrict any use of the information to criminally investigate or prosecute any alcohol or drug abuse patient.[facility] CenterIn the event this information is protected by the Federal Confidentiality of Alcohol and Drug Abuse Patient Records regulations: The Federal rules restrict any use of the information to criminally investigate or prosecute any alcohol or drug abuse patient.[facility] CenterIn the event this information is protected by the Federal Confidentiality of Alcohol and Drug Abuse Patient Records regulations: The Federal rules restrict any use of the information to criminally investigate or prosecute any alcohol or drug abuse patient.[facility] CenterIn the event this information is protected by the Federal Confidentiality of Alcohol and Drug Abuse Patient Records regulations: The Federal rules restrict any use of the information to criminally investigate or prosecute any alcohol or drug abuse patient.[facility] CenterIn the event this information is protected by the Federal Confidentiality of Alcohol and Drug Abuse Patient Records regulations: The Federal rules restrict any use of the information to criminally investigate or prosecute any alcohol or drug abuse patient.[facility] CenterIn the event this information is protected by the Federal Confidentiality of Alcohol and Drug Abuse Patient Records regulations: The Federal rules restrict any use of the information to criminally investigate or prosecute any alcohol or drug abuse patient.[facility] CenterIn the event this information is protected by the Federal Confidentiality of Alcohol and Drug Abuse Patient Records regulations: The Federal rules restrict any use of the information to criminally investigate or prosecute any alcohol or drug abuse patient.[facility] CenterIn the event this information is protected by the Federal Confidentiality of Alcohol and Drug Abuse Patient Records regulations: The Federal rules restrict any use of the information to criminally investigate or prosecute any alcohol or drug abuse patient.[facility] CenterIn the event this information is protected by the Federal Confidentiality of Alcohol and Drug Abuse Patient Records regulations: The Federal rules restrict any use of the information to criminally investigate or prosecute any alcohol or drug abuse patient.[facility] CenterIn the event this information is protected by the Federal Confidentiality of Alcohol and Drug Abuse Patient Records regulations: The Federal rules restrict any use of the information to criminally investigate or prosecute any alcohol or drug abuse patient.[facility] CenterIn the event this information is protected by the Federal Confidentiality of Alcohol and Drug Abuse Patient Records regulations: The Federal rules restrict any use of the information to criminally investigate or prosecute any alcohol or drug abuse patient.[facility] CenterIn the event this information is protected by the Federal Confidentiality of Alcohol and Drug Abuse Patient Records regulations: The Federal rules restrict any use of the information to criminally investigate or prosecute any alcohol or drug abuse patient.[facility] CenterIn the event this information is protected by the Federal Confidentiality of Alcohol and Drug Abuse Patient Records regulations: The Federal rules restrict any use of the information to criminally investigate or prosecute any alcohol or drug abuse patient.[facility] CenterIn the event this information is protected by the Federal Confidentiality of Alcohol and Drug Abuse Patient Records regulations: The Federal rules restrict any use of the information to criminally investigate or prosecute any alcohol or drug abuse patient.[facility] CenterIn the event this information is protected by the Federal Confidentiality of Alcohol and Drug Abuse Patient Records regulations: The Federal rules restrict any use of the information to criminally investigate or prosecute any alcohol or drug abuse patient.[facility] CenterIn the event this information is protected by the Federal Confidentiality of Alcohol and Drug Abuse Patient Records regulations: The Federal rules restrict any use of the information to criminally investigate or prosecute any alcohol or drug abuse patient.[facility] CenterIn the event this information is protected by the Federal Confidentiality of Alcohol and Drug Abuse Patient Records regulations: The Federal rules restrict any use of the information to criminally investigate or prosecute any alcohol or drug abuse patient.[facility] CenterIn the event this information is protected by the Federal Confidentiality of Alcohol and Drug Abuse Patient Records regulations: The Federal rules restrict any use of the information to criminally investigate or prosecute any alcohol or drug abuse patient.[facility] CenterIn the event this information is protected by the Federal Confidentiality of Alcohol and Drug Abuse Patient Records regulations: The Federal rules restrict any use of the information to criminally investigate or prosecute any alcohol or drug abuse patient.[facility] CenterIn the event this information is protected by the Federal Confidentiality of Alcohol and Drug Abuse Patient Records regulations: The Federal rules restrict any use of the information to criminally investigate or prosecute any alcohol or drug abuse patient.[facility] CenterIn the event this information is protected by the Federal Confidentiality of Alcohol and Drug Abuse Patient Records regulations: The Federal rules restrict any use of the information to criminally investigate or prosecute any alcohol or drug abuse patient.[facility] CenterIn the event this information is protected by the Federal Confidentiality of Alcohol and Drug Abuse Patient Records regulations: The Federal rules restrict any use of the information to criminally investigate or prosecute any alcohol or drug abuse patient.[facility] CenterIn the event this information is protected by the Federal Confidentiality of Alcohol and Drug Abuse Patient Records regulations: The Federal rules restrict any use of the information to criminally investigate or prosecute any alcohol or drug abuse patient.[facility] CenterIn the event this information is protected by the Federal Confidentiality of Alcohol and Drug Abuse Patient Records regulations: The Federal rules restrict any use of the information to criminally investigate or prosecute any alcohol or drug abuse patient.[facility] CenterIn the event this information is protected by the Federal Confidentiality of Alcohol and Drug Abuse Patient Records regulations: The Federal rules restrict any use of the information to criminally investigate or prosecute any alcohol or drug abuse patient.[facility] CenterIn the event this information is protected by the Federal Confidentiality of Alcohol and Drug Abuse Patient Records regulations: The Federal rules restrict any use of the information to criminally investigate or prosecute any alcohol or drug abuse patient.[facility] CenterIn the event this information is protected by the Federal Confidentiality of Alcohol and Drug Abuse Patient Records regulations: The Federal rules restrict any use of the information to criminally investigate or prosecute any alcohol or drug abuse patient.[facility] CenterIn the event this information is protected by the Federal Confidentiality of Alcohol and Drug Abuse Patient Records regulations: The Federal rules restrict any use of the information to criminally investigate or prosecute any alcohol or drug abuse patient.[facility] CenterIn the event this information is protected by the Federal Confidentiality of Alcohol and Drug Abuse Patient Records regulations: The Federal rules restrict any use of the information to criminally investigate or prosecute any alcohol or drug abuse patient.[facility] CenterIn the event this information is protected by the Federal Confidentiality of Alcohol and Drug Abuse Patient Records regulations: The Federal rules restrict any use of the information to criminally investigate or prosecute any alcohol or drug abuse patient.[facility] CenterIn the event this information is protected by the Federal Confidentiality of Alcohol and Drug Abuse Patient Records regulations: The Federal rules restrict any use of the information to criminally investigate or prosecute any alcohol or drug abuse patient.[facility] the event this information is protected by the Federal Confidentiality of Alcohol and Drug Abuse Patient Records regulations: The Federal rules restrict any use of the information to criminally investigate or prosecute any alcohol or drug abuse patient.[facility] CenterIn the event this information is protected by the Federal Confidentiality of Alcohol and Drug Abuse Patient Records regulations: The Federal rules restrict any use of the information to criminally investigate or prosecute any alcohol or drug abuse patient.[facility] CenterIn the event this information is protected by the Federal Confidentiality of Alcohol and Drug Abuse Patient Records regulations: The Federal rules restrict any use of the information to criminally investigate or prosecute any alcohol or drug abuse patient.[facility] CenterIn the event this information is protected by the Federal Confidentiality of Alcohol and Drug Abuse Patient Records regulations: The Federal rules restrict any use of the information to criminally investigate or prosecute any alcohol or drug abuse patient.[facility] CenterIn the event this information is protected by the Federal Confidentiality of Alcohol and Drug Abuse Patient Records regulations: The Federal rules restrict any use of the information to criminally investigate or prosecute any alcohol or drug abuse patient.[facility] CenterIn the event this information is protected by the Federal Confidentiality of Alcohol and Drug Abuse Patient Records regulations: The Federal rules restrict any use of the information to criminally investigate or prosecute any alcohol or drug abuse patient.[facility] CenterIn the event this information is protected by the Federal Confidentiality of Alcohol and Drug Abuse Patient Records regulations: The Federal rules restrict any use of the information to criminally investigate or prosecute any alcohol or drug abuse patient.[facility] CenterIn the event this information is protected by the Federal Confidentiality of Alcohol and Drug Abuse Patient Records regulations: The Federal rules restrict any use of the information to criminally investigate or prosecute any alcohol or drug abuse patient.[facility] CenterIn the event this information is protected by the Federal Confidentiality of Alcohol and Drug Abuse Patient Records regulations: The Federal rules restrict any use of the information to criminally investigate or prosecute any alcohol or drug abuse patient.[facility] CenterIn the event this information is protected by the Federal Confidentiality of Alcohol and Drug Abuse Patient Records regulations: The Federal rules restrict any use of the information to criminally investigate or prosecute any alcohol or drug abuse patient.[facility] CenterIn the event this information is protected by the Federal Confidentiality of Alcohol and Drug Abuse Patient Records regulations: The Federal rules restrict any use of the information to criminally investigate or prosecute any alcohol or drug abuse patient.[facility] CenterIn the event this information is protected by the Federal Confidentiality of Alcohol and Drug Abuse Patient Records regulations: The Federal rules restrict any use of the information to criminally investigate or prosecute any alcohol or drug abuse patient.[facility] CenterIn the event this information is protected by the Federal Confidentiality of Alcohol and Drug Abuse Patient Records regulations: The Federal rules restrict any use of the information to criminally investigate or prosecute any alcohol or drug abuse patient.[facility] CenterIn the event this information is protected by the Federal Confidentiality of Alcohol and Drug Abuse Patient Records regulations: The Federal rules restrict any use of the information to criminally investigate or prosecute any alcohol or drug abuse patient.[facility] CenterIn the event this information is protected by the Federal Confidentiality of Alcohol and Drug Abuse Patient Records regulations: The Federal rules restrict any use of the information to criminally investigate or prosecute any alcohol or drug abuse patient.[facility] CenterIn the event this information is protected by the Federal Confidentiality of Alcohol and Drug Abuse Patient Records regulations: The Federal rules restrict any use of the information to criminally investigate or prosecute any alcohol or drug abuse patient.[facility] CenterIn the event this information is protected by the Federal Confidentiality of Alcohol and Drug Abuse Patient Records regulations: The Federal rules restrict any use of the information to criminally investigate or prosecute any alcohol or drug abuse patient.[facility] CenterIn the event this information is protected by the Federal Confidentiality of Alcohol and Drug Abuse Patient Records regulations: The Federal rules restrict any use of the information to criminally investigate or prosecute any alcohol or drug abuse patient.[facility] CenterIn the event this information is protected by the Federal Confidentiality of Alcohol and Drug Abuse Patient Records regulations: The Federal rules restrict any use of the information to criminally investigate or prosecute any alcohol or drug abuse patient.[facility] CenterIn the event this information is protected by the Federal Confidentiality of Alcohol and Drug Abuse Patient Records regulations: The Federal rules restrict any use of the information to criminally investigate or prosecute any alcohol or drug abuse patient.[facility] CenterIn the event this information is protected by the Federal Confidentiality of Alcohol and Drug Abuse Patient Records regulations: The Federal rules restrict any use of the information to criminally investigate or prosecute any alcohol or drug abuse patient.[facility] CenterIn the event this information is protected by the Federal Confidentiality of Alcohol and Drug Abuse Patient Records regulations: The Federal rules restrict any use of the information to criminally investigate or prosecute any alcohol or drug abuse patient.[facility] CenterIn the event this information is protected by the Federal Confidentiality of Alcohol and Drug Abuse Patient Records regulations: The Federal rules restrict any use of the information to criminally investigate or prosecute any alcohol or drug abuse patient.[facility] CenterIn the event this information is protected by the Federal Confidentiality of Alcohol and Drug Abuse Patient Records regulations: The Federal rules restrict any use of the information to criminally investigate or prosecute any alcohol or drug abuse patient.[facility] CenterIn the event this information is protected by the Federal Confidentiality of Alcohol and Drug Abuse Patient Records regulations: The Federal rules restrict any use of the information to criminally investigate or prosecute any alcohol or drug abuse patient.[facility] CenterIn the event this information is protected by the Federal Confidentiality of Alcohol and Drug Abuse Patient Records regulations: The Federal rules restrict any use of the information to criminally investigate or prosecute any alcohol or drug abuse patient.[facility] CenterIn the event this information is protected by the Federal Confidentiality of Alcohol and Drug Abuse Patient Records regulations: The Federal rules restrict any use of the information to criminally investigate or prosecute any alcohol or drug abuse patient.[facility] CenterIn the event this information is protected by the Federal Confidentiality of Alcohol and Drug Abuse Patient Records regulations: The Federal rules restrict any use of the information to criminally investigate or prosecute any alcohol or drug abuse patient.[facility] CenterIn the event this information is protected by the Federal Confidentiality of Alcohol and Drug Abuse Patient Records regulations: The Federal rules restrict any use of the information to criminally investigate or prosecute any alcohol or drug abuse patient.[facility] CenterIn the event this information is protected by the Federal Confidentiality of Alcohol and Drug Abuse Patient Records regulations: The Federal rules restrict any use of the information to criminally investigate or prosecute any alcohol or drug abuse patient.[facility] CenterIn the event this information is protected by the Federal Confidentiality of Alcohol and Drug Abuse Patient Records regulations: The Federal rules restrict any use of the information to criminally investigate or prosecute any alcohol or drug abuse patient.[facility] CenterIn the event this information is protected by the Federal Confidentiality of Alcohol and Drug Abuse Patient Records regulations: The Federal rules restrict any use of the information to criminally investigate or prosecute any alcohol or drug abuse patient.[facility] CenterIn the event this information is protected by the Federal Confidentiality of Alcohol and Drug Abuse Patient Records regulations: The Federal rules restrict any use of the information to criminally investigate or prosecute any alcohol or drug abuse patient.[facility] CenterIn the event this information is protected by the Federal Confidentiality of Alcohol and Drug Abuse Patient Records regulations: The Federal rules restrict any use of the information to criminally investigate or prosecute any alcohol or drug abuse patient.[facility] CenterIn the event this information is protected by the Federal Confidentiality of Alcohol and Drug Abuse Patient Records regulations: The Federal rules restrict any use of the information to criminally investigate or prosecute any alcohol or drug abuse patient.[facility] Reason for Visit (unrecogniz ed section and [...] NEW HIGH MDM 60-74 MINUTES Josse Lance, [employer] [address] [place] [address] Referral ID Status Reason Start Date Expiration Date V isits Requested Visits Authorized [id number] Closed PCP Requested Referral 07/03/2021 07/03/2022 1 [...] PELVIC NONOBSTETRIC IMAGE DCMTN LIMITED/F/U Jaci Lucero APRN.SHIP/REC/DOC CONTROL [address] [place] [address] Us Imaging Referral ID Status Reason Start Date Expiration Date V isits Requested Visits Authorized [id number] Closed Auto-Generate d Referral 10/20/2021 11/19/2022 1 [...] Tramadol - itching Reason Onset Date Comments [facility] 08/28/2022 Telephonic outre ach Reason Onset Date Comments [facility] 08/29/2022 Telephonic outre ach Reason Onset Date Comments Opened In Error 08/29/2022 Reason Comments Patient Question Follow Up Returned patients ca ll. She had a question about seeing two Cardiologists. I let her know that she should see the transplant brand coordinator here at [facility] which she is scheduled for in [...] C are Cancellation Reason Onset Date Comments [facility] 10/26/2022 Routine outreach Reason Comments Rash Around left side of body, itching Reason Comments Left Hip Pain Fall Reason Onset Date Comments Refill Request 11/20/2022 Reason Onset Date Comments [facility] 11/22/2022 Routine outreach Reason Comments Follow Up fell 3 week ago and 1 week ago crashed electric wheelchair Reason Onset Date Comments [facility] 12/20/2022 Routine outreach Reason Comments Letter Reason Comments Recheck ER follow up, abdomi nal pain Reason Comments ED Follow-up Reason Comments New Patient Hep C Protocol, Pre Kidney TXP Specialty Diagnoses / Procedures Referred By Contact Referred To Contact Gastroenterology / TRANSPLANT Diagnoses Pre-transplant evaluation for end stage renal disease Awaiting organ transplant Procedures CONSULT TO GASTROENTEROLOGY OFFICE/OUTPATIENT [facility] 60-74 MINUTES Kel Victoria MD [address] [place] [address] [facility] [address] [address] Referral ID Status Reason Start Date Expiration Date V isits Requested Visits Authorized [id number] Closed PCP Requested Referral Patient Cleared - INN Insurance Found 04/30/2022 04/29/2023 1 1 Specialty Diagnoses / Procedures Referred By Contac t Referred To Contact Cardiology / TRANSPLANT Diagnoses Pre-transplant evaluation for end stage renal disease Pre-operative cardiovascular examination History of heart artery stent Procedures CONSULT TO CARDIOLOGY OFFICE/OUTPATIENT NEW HIGH MDM 60-74 MINUTES Kel Victoria MD [address] [place] [address] [facility] [address] [place] [id number] Referral ID Status Reason Start Date Expiration Date V isits Requested Visits Authorized [id number] Closed PCP Requested Referral Patient Cleared - [...] Care Teams (unrecognized sec tion and content) De Icer Finisher Relationship Specialty Start Date End Date Jame Hunt MD [address] [place] [address] PCP - General Internal Medicine 08/15/16 Kim La [address] [id number] Pharmacist Pharmacy 07/17/18 Vaughn Reeves, [facility] [address] [place] [address] Registered Nurse Transplant Center 04/13/19 Ricki Dc MD [address] [address] [facility] 01/11/20 Vicente Vargas MD [address] [place] [address] Cardiology 04/05/21 De Icer Finisher Relationship Specialty Start Date End Date Jame Hunt MD [address] [facility] [place] [address] PCP - General Internal Medicine 08/15/16 Kim La, [facility] [address] [place] [address] Pharmacist Pharmacy 07/17/18 Vaughn Reeves RN [facility] [address] [facility] [place] [address] Registered Nurse Transplant Center 04/13/19 Ricki Dc MD [address] [place] [address] [place] [address] [facility] 01/11/20 Vicente Vargas MD [address] [place] [address] Cardiology 04/05/21 De Icer Finisher Relationship Specialty Start Date End Date Jame Hunt MD [address] [facility] [place] [address] PCP - General Internal Medicine 08/15/16 Kim La, [facility] [address] [place] [address] Pharmacist Pharmacy 07/17/18 Vaughn Reeves RN [facility] [address] [place] [address] Registered Nurse Transplant Center 04/13/19 Ricki Dc MD [address] [place] [address] [facility] 01/11/20 Vicente Vargas MD [address] [place] [address] Cardiology 04/05/21 De Icer Finisher Relationship Specialty Start Date End Date Jame Hunt MD [address] [place] [address] PCP - General Internal Medicine 08/15/16 Kim La, [facility] [address] [place] [address] Pharmacist Pharmacy 07/17/18 Vaughn Reeves RN [facility] [address] [place] [address] Registered Nurse Transplant Center 04/13/19 Ricki Dc MD [address] [place] [address] [facility] 01/11/20 Vicente Vargas MD [address] [place] [address] Cardiology 04/05/21 De Icer Finisher Relationship Specialty Start Date End Date Jame Hunt MD [address] [place] [address] PCP - General Internal Medicine 08/15/16 Conde Kim, [facility] [address] [place] [address] Pharmacist Pharmacy 07/17/18 Vaughn Reeves, [facility] [address] [place] [address] Registered Nurse Transplant Center 04/13/19 Ricki Dc MD [address] [place] [address] [facility] 01/11/20 Vicente Vargas MD [address] [place] [address] Cardiology 04/05/21 De Icer Finisher Relationship Specialty Start Date End Date Jame Hunt MD [address] [place] [address] PCP - General Internal Medicine 08/15/16 [facility] [address] [place] [address] Pharmacist Pharmacy 07/17/18 Vaughn Reeves RN [facility] [address] [place] [address] Registered Nurse Transplant Center 04/13/19 Ricki Dc MD [address] [place] [address] [facility] 01/11/20 Vicente Vargas MD [address] [place] [address] Cardiology 04/05/21 De Icer Finisher Relationship Specialty Start Date End Date Jame Hunt MD [address] [place] [address] PCP - General Internal Medicine 08/15/16 Kim La, [facility] [address] [place] [address] Pharmacist Pharmacy 07/17/18 Vaughn Reeves, [facility] [address] [place] [address] Registered Nurse Transplant Center 04/13/19 Ricki Dc MD [address] [place] [address] [facility] 01/11/20 Vicente Vargas MD [address] [place] [address] Cardiology 04/05/21 De Icer Finisher Relationship Specialty Start Date End Date Jame Hunt MD [address] [facility] [place] [address] PCP - General Internal Medicine 08/15/16 Kim La, [facility] [address] [place] [address] Pharmacist Pharmacy 07/17/18 Vaughn Reeves RN [facility] [address] [place] [address] Registered Nurse Transplant Center 04/13/19 Ricki Dc MD [address] [place] [address] [facility] 01/11/20 Vicente Vargas MD [address] [place] [address] Cardiology 04/05/21 De Icer Finisher Relationship Specialty Start Date End Date Jame Hunt MD [address] [place] [address] PCP - General Internal Medicine 08/15/16 Kim La, [facility] [address] [place] [address] Pharmacist Pharmacy 07/17/18 Vaughn Reeves RN [facility] [address] [place] [address] Registered Nurse Transplant Center 04/13/19 Ricki Dc MD [address] [place] [address] [facility] 01/11/20 Vicente Vargas MD [address] [place] [address] Cardiology 04/05/21 De Icer Finisher Relationship Specialty Start Date End Date Jame Hunt MD [address] [place] [address] PCP - General Internal Medicine 08/15/16 Kim La, [facility] [address] [place] [address] Pharmacist Pharmacy 07/17/18 Vaughn Reeves RN [facility] [address] [place] [address] Registered Nurse Transplant Center 04/13/19 Ricki Dc MD [address] [place] [address] [facility] 01/11/20 Vicente Vargas MD [address] [place] [address] Cardiology 04/05/21 De Icer Finisher Relationship Specialty Start Date End Date Jame Hunt MD [address] [facility] [place] [address] PCP - General Internal Medicine 08/15/16 Kim La, [facility] [address] [place] [address] Pharmacist Pharmacy 07/17/18 Vaughn Reeves RN [facility] [address] [place] [address] Registered Nurse Transplant Center 04/13/19 Ricki Dc MD [address] [place] [address] [facility] 01/11/20 Vicente Vargas MD [address] [place] [address] Cardiology 04/05/21 De Icer Finisher Relationship Specialty Start Date End Date Jame Hunt MD [address] [place] [address] PCP - General Internal Medicine 08/15/16 [facility] [address] [place] [address] Pharmacist Pharmacy 07/17/18 Vaughn Reeves RN [facility] [address] [place] [address] Registered Nurse Transplant Center 04/13/19 Ricki Dc MD [address] [place] [address] [facility] 01/11/20 Vicente Vargas MD [address] [place] [address] Cardiology 04/05/21 De Icer Finisher Relationship Specialty Start Date End Date Jame Hunt MD [address] [place] [address] PCP - General Internal Medicine 08/15/16 Conde [facility] [address] [place] [address] Pharmacist Pharmacy 07/17/18 Vaughn Reeves RN [facility] [address] [place] [address] Registered Nurse Transplant Center 04/13/19 Ricki Dc MD [address] [place] [address] [facility] 01/11/20 Vicente Vargas MD [address] [place] [address] Cardiology 04/05/21 De Icer Finisher Relationship Specialty Start Date End Date Jame Hunt MD [address] [place] [address] PCP - General Internal Medicine 08/15/16 Kim La, [facility] [address] [place] [address] Pharmacist Pharmacy 07/17/18 Vaughn Reeves RN [facility] [address] [place] [address] Registered Nurse Transplant Center 04/13/19 Ricki Dc MD [address] [place] [address] Marker Hand Nephrology 01/11/20 Vicente Vargas MD [address] [place] [address] Cardiology 04/05/21 De Icer Finisher Relationship Specialty Start Date End Date Jame Hunt MD [address] [place] [address] PCP - General Internal Medicine 08/15/16 Kim La, [facility] [address] [place] [address] Pharmacist Pharmacy 07/17/18 Vaughn Reeves RN [facility] [address] [place] [address] Registered Nurse Transplant Center 04/13/19 Ricki Dc MD [address] [place] [address] Marker Hand Nephrology 01/11/20 Vicente Vargas MD [address] [place] [address] Cardiology 04/05/21 De Icer Finisher Relationship Specialty Start Date End Date Jame Hunt MD [address] [facility] [place] [address] PCP - General Internal Medicine 08/15/16 AbhinavKim harris, [facility] [address] [place] [address] Pharmacist Pharmacy 07/17/18 Vaughn Reeves RN [facility] [address] [facility] [place] [address] Registered Nurse Transplant Center 04/13/19 Ricki Dc MD [address] [place] [address] Marker Hand Nephrology 01/11/20 Vicente Vargas MD [address] [place] [address] Cardiology 04/05/21 De Icer Finisher Relationship Specialty Start Date End Date Jame Hunt MD [address] [place] [address] PCP - General Internal Medicine 08/15/16 [facility] [address] [place] [address] Pharmacist Pharmacy 07/17/18 Vaughn Reeves RN [facility] [address] [place] [address] Registered Nurse Transplant Center 04/13/19 Ricki Dc MD [address] [place] [address] Marker Hand Nephrology 01/11/20 Vicente Vargas MD [address] [place] [address] Cardiology 04/05/21 De Icer Finisher Relationship Specialty Start Date End Date Jame Hunt MD [address] [place] [address] PCP - General Internal Medicine 08/15/16 Kim [facility] [address] [place] [address] Pharmacist Pharmacy 07/17/18 Vaughn Reeves RN [facility] [address] [place] [address] Registered Nurse Transplant Center 04/13/19 Ricki Dc MD [address] [place] [address] Marker Hand Nephrology 01/11/20 Vicente Vargas MD [address] [place] [address] Cardiology 04/05/21 Roxie Pamler, [facility] [address] [place] [address] Civil Engineer In Training 09/11/21 De Icer Finisher Relationship Specialty Start Date End Date Jame Hunt MD [address] [place] [address] PCP - General Internal Medicine 08/15/16 Kim [facility] [address] [place] [address] Pharmacist Pharmacy 07/17/18 Vaughn Reeves, NIEVES [facility] [address] [place] [address] Registered Nurse Transplant Center 04/13/19 Ricki Dc MD [address] [place] [address] [place] [address] Marker Hand Nephrology 01/11/20 Vicente Vargas MD [address] [place] [address] Cardiology 04/05/21 Roxie Palmer, [facility] [address] [place] [address] Civil Engineer In Training 09/11/21 De Icer Finisher Relationship Specialty Start Date End Date Jame Hunt MD [address] [facility] [place] [address] PCP - General Internal Medicine 08/15/16 Kim [facility] [address] [place] [address] Pharmacist Pharmacy 07/17/18 Vaughn Reeves RN [facility] [address] [place], [place] [address] [place] [address] Registered Nurse Transplant Center 04/13/19 Ricki Dc MD [address] [place] [address] [place] [address] Marker Hand Nephrology 01/11/20 Vicente Vargas MD [address] [place] [address] Cardiology 04/05/21 Roxie Palmer, [facility] [address] [place] [address] Civil Engineer In Training 09/11/21 De Icer Finisher Relationship Specialty Start Date End Date Jame Hunt MD [address] [place] [address] PCP - General Internal Medicine 08/15/16 Kim [facility] [address] [place] [address] Pharmacist Pharmacy 07/17/18 Vaughn Reeves, NI[facility] [address] [place] [address] Registered Nurse Transplant Center 04/13/19 Ricki Dc MD [address] [place] [address] [place] [address] Marker Hand Nephrology 01/11/20 Vicente Vargas MD [address] [place] [address] Cardiology 04/05/21 Roxie Palmer, [facility] [address] [place] [address] Civil Engineer In Training 09/11/21 De Icer Finisher Relationship Specialty Start Date End Date Jame Hunt MD [address] [place] [address] PCP - General Internal Medicine 08/15/16 Kim [facility] [address] [place] [address] Pharmacist Pharmacy 07/17/18 Vaughn Reeves RN [facility] [address] [place] [address] Registered Nurse Transplant Center 04/13/19 Ricki Dc MD [address] [place] [address] [place] [address] Marker Hand Nephrology 01/11/20 Vicente Vargas MD [address] [place] [address] Cardiology 04/05/21 Roxie Palmer, [facility] [address] [place] [address] Civil Engineer In Training 09/11/21 De Icer Finisher Relationship Specialty Start Date End Date Jame Hunt MD [address] [place] [address] PCP - General Internal Medicine 08/15/16 Kim [facility] [address] [place] [address] Pharmacist Pharmacy 07/17/18 Vaughn Reeves, NI[facility]ES [facility] [address] [place] [address] Registered Nurse Transplant Center 04/13/19 Ricki Dc MD [address] [address] Marker Hand Nephrology 01/11/20 Vicente Vargas MD [address] [place] [address] Cardiology 04/05/21 Roxie Palmer, [facility] [address] [place] [address] Civil Engineer In Training 09/11/21 De Icer Finisher Relationship Specialty Start Date End Date Jame Hunt MD [address] [place] [address] PCP - General Internal Medicine 08/15/16 Kim [facility] [address] [place] [address] Pharmacist Pharmacy 07/17/18 Vaughn Reeves RN [facility] [address] [place] [address] Registered Nurse Transplant Center 04/13/19 Ricki Dc MD [address] [place] [address] [place] [address] Marker Hand Nephrology 01/11/20 Vicente Vargas MD [address] [place] [address] Cardiology 04/05/21 Roxie Palmer, NIEVES [address] [place] [address] Civil Engineer In Training 09/11/21 De Icer Finisher Relationship Specialty Start Date End Date Jame Hunt MD [address] [place] [address] PCP - General Internal Medicine 08/15/16 Kim La, [facility] [address] [place] [address] Pharmacist Pharmacy 07/17/18 Vaughn Reeves, NIEVES [facility] [address] [place] [address] Registered Nurse Transplant Center 04/13/19 Ricki Dc MD [address] [place] [address] Marker Hand Nephrology 01/11/20 Vicente Vargas MD [address] [place] [address] Cardiology 04/05/21 Roxie Palmer RN [address] [place] [address] Civil Engineer In Training 09/11/21 De Icer Finisher Relationship Specialty Start Date End Date Jame Hunt MD [address] [place] [address] PCP - General Internal Medicine 08/15/16 Kim La, [facility] [address] [place] [address] Pharmacist Pharmacy 07/17/18 Vaughn Reeves RN [facility] [address] [place] [address] Registered Nurse Transplant Center 04/13/19 Ricki Dc MD [address] [place] [address] Marker Hand Nephrology 01/11/20 Vicente Vargas MD [address] [place] [address] Cardiology 04/05/21 Roxie Palmer, [facility] [address] [place] [address] Civil Engineer In Training 09/11/21 De Icer Finisher Relationship Specialty Start Date End Date Jame Hunt MD [address] [place] [address] PCP - General Internal Medicine 08/15/16 AbhinavKim harris, [facility] [address] [place] [address] Pharmacist Pharmacy 07/17/18 Vaughn Reeves RN [facility] [address] [place] [address] Registered Nurse Transplant Center 04/13/19 Ricki Dc MD [address] [place] [address] [place] [address] Marker Hand Nephrology 01/11/20 Vicente Vargas MD [address] [place] [address] Cardiology 04/05/21 Roxie Palmer RN [address] [place] [address] Civil Engineer In Training 09/11/21 De Icer Finisher Relationship Specialty Start Date End Date Jame Hunt MD [address] [place] [address] PCP - General Internal Medicine 08/15/16 Kim La, [facility] [address] [place] [address] Pharmacist Pharmacy 07/17/18 Vaughn Reeves RN [facility] [address] [place] [address] Registered Nurse Transplant Center 04/13/19 Ricki Dc MD [address] [place] [address] [place] [address] Marker Hand Nephrology 01/11/20 Vicente Vargas MD [address] [place] [address] Cardiology 04/05/21 Roxie Palmer, [facility] [address] [place] [address] Civil Engineer In Training 09/11/21 De Icer Finisher Relationship Specialty Start Date End Date Jame Hunt MD [address] [place] [address] PCP - General Internal Medicine 08/15/16 CondeKim, [facility] [address] [place] [address] Pharmacist Pharmacy 07/17/18 Vaughn Reeves, NIEVES [facility] [address] [place] [address] Registered Nurse Transplant Center 04/13/19 Ricki Dc MD [address] [place] [address] [place] [address] Marker Hand Nephrology 01/11/20 Vicente Vargas MD [address] [place] [address] Cardiology 04/05/21 Roxie Palmer, NIEV[facility] [address] [place] [address] Civil Engineer In Training 09/11/21 De Icer Finisher Relationship Specialty Start Date End Date Jame Hunt MD [address] [place] [address] PCP - General Internal Medicine 08/15/16 CondeKim, [facility] [address] [place] [address] Pharmacist Pharmacy 07/17/18 Vaughn Reeves RN [facility] [address] [place] [address] Registered Nurse Transplant Center 04/13/19 Ricki Dc MD [address] [place] [address] [place] [address] Marker Hand Nephrology 01/11/20 Vicente Vargas MD [address] [place] [address] Cardiology 04/05/21 Roxie Palmer, [facility] [address] [place] [address] Civil Engineer In Training 09/11/21 De Icer Finisher Relationship Specialty Start Date End Date Jame Hunt MD [address] [place] [address] PCP - General Internal Medicine 08/15/16 Kim La, [facility] [address] [place] [address] Pharmacist Pharmacy 07/17/18 Vaughn Reeves, NIEVES [facility] [address] [place] [address] Registered Nurse Transplant Center 04/13/19 Ricki Dc MD [address] [place] [address] [place] [address] Marker Hand Nephrology 01/11/20 Vicente Vargas MD [address] [place] [address] Cardiology 04/05/21 Roxie Palmer RN [address] [place] [address] Civil Engineer In Training 09/11/21 De Icer Finisher Relationship Specialty Start Date End Date Jame Hunt MD [address] [place] [address] PCP - General Internal Medicine 08/15/16 Kim La, [facility] [address] [place] [address] Pharmacist Pharmacy 07/17/18 Vaughn Reeves RN [facility] [address] [place] [address] Registered Nurse Transplant Center 04/13/19 Ricki Dc MD [address] [place] [address] [place] [address] Marker Hand Nephrology 01/11/20 Vicente Vargas MD [address] [place] [address] Cardiology 04/05/21 Roxie Palmer RN [address] [place] [address] Civil Engineer In Training 09/11/21 De Icer Finisher Relationship Specialty Start Date End Date Jame Hunt MD [address] [place] [address] PCP - General Internal Medicine 08/15/16 Kim La, [facility] [address] [place] [address] Pharmacist Pharmacy 07/17/18 Vaughn Reeves RN [facility] [address] [place] [address] Registered Nurse Transplant Center 04/13/19 Ricki Dc MD [address] [place] [address] [place] [address] Marker Hand Nephrology 01/11/20 Vicente Vargas MD [address] [place] [address] Cardiology 04/05/21 Roxie Palmer RN [address] [place] [address] Civil Engineer In Training 09/11/21 De Icer Finisher Relationship Specialty Start Date End Date Jame Hunt MD [address] [place] [address] PCP - General Internal Medicine 08/15/16 Kim La, [facility] [address] [place] [address] Pharmacist Pharmacy 07/17/18 Vaughn Reeves RN [facility] [address] [place] [address] Registered Nurse Transplant Center 04/13/19 Ricki Dc MD [address] [place] [address] [place] [address] Marker Hand Nephrology 01/11/20 Vicente Vargas MD [address] [place] [address] Cardiology 04/05/21 Roxie Palmer RN [address] [place] [address] Civil Engineer In Training 09/11/21 De Icer Finisher Relationship Specialty Start Date End Date Jame Hunt MD [address] [place] [address] PCP - General Internal Medicine 08/15/16 Kim La, [facility] [address] [place] [address] Pharmacist Pharmacy 07/17/18 Vaughn Reeves RN [facility] [address] [place] [address] Registered Nurse Transplant Center 04/13/19 Ricki Dc MD [address] [place] [address] [place] [address] Marker Hand Nephrology 01/11/20 Vicente Vargas MD [address] [place] [address] Cardiology 04/05/21 Roxie Palmer RN [address] [place] [address] Civil Engineer In Training 09/11/21 De Icer Finisher Relationship Specialty Start Date End Date Jame Hunt MD [address] [place] [address] PCP - General Internal Medicine 08/15/16 Kim La, [facility] [address] [place] [address] Pharmacist Pharmacy 07/17/18 Vaughn Reeves RN [facility] [address] [place] [address] Registered Nurse Transplant Center 04/13/19 Ricki Dc MD [address] [place] [address] [place] [address], [place] [address] Marker Hand Nephrology 01/11/20 Vicente Vargas MD [address] [place] [address] Cardiology 04/05/21 Roxie Palmer RN [address] [place], [place] [id number] Civil Engineer In Training 09/11/21 De Icer Finisher Relationship Specialty Start Date End Date Jame Hunt MD [address] [facility] [place] [address] PCP - General Internal Medicine 08/15/16 Kim La, h [address] [place] [address] Pharmacist Pharmacy 07/17/18 Vaughn Reeves RN [facility] [address] [facility] [place] [address] Registered Nurse Transplant Center 04/13/19 Ricki Dc MD [address] [place] [address] Marker Hand Nephrology 01/11/20 Vicente Vargas MD [address] [place] [address] Cardiology 04/05/21 Roxie Palmer RN [address] [place], [place] [id number] Civil Engineer In Training 09/11/21 De Icer Finisher Relationship Specialty Start Date End Date Jame Hunt MD [address] [facility] [place] [address] PCP - General Internal Medicine 08/15/16 Kim La, [facility] [address] [place] [address] Pharmacist Pharmacy 07/17/18 Vaughn Reeves RN [facility] [address] [place] [address] Registered Nurse Transplant Center 04/13/19 Ricki Dc MD [address] [place] [address] Marker Hand Nephrology 01/11/20 Vicente Vargas MD [address] [place] [address] Cardiology 04/05/21 Roxie Palmer RN [address] [place], [place] [id number] Civil Engineer In Training 09/11/21 De Icer Finisher Relationship Specialty Start Date End Date Jame Hunt MD [address] [place] [address] PCP - General Internal Medicine 08/15/16 Kim La, [facility] [address] [place] [address] Pharmacist Pharmacy 07/17/18 Vaughn Reeves, NIEVES [facility] [address] [place] [address] Registered Nurse Transplant Center 04/13/19 Ricki Dc MD [address] [place] [address] Marker Hand Nephrology 01/11/20 Vicente Vargas MD [address] [place] [address] Cardiology 04/05/21 Roxie Palmer, [facility] [address] [place], [place] 6754531 Civil Engineer In Training 09/11/21 De Icer Finisher Relationship Specialty Start Date End Date Jame Hunt MD [address] [place] [address] PCP - General Internal Medicine 08/15/16 Kim La, [facility] [address] [place] [address] Pharmacist Pharmacy 07/17/18 Vaughn Reeves RN [facility] [address] [place] [address] Registered Nurse Transplant Center 04/13/19 Ricki Dc MD [address] [place] [address] Marker Hand Nephrology 01/11/20 Vicente Vargas MD [address] [place] [address] Cardiology 04/05/21 Roxie Palmer RN [address] [place], [place] [id number] Civil Engineer In Training 09/11/21 De Icer Finisher Relationship Specialty Start Date End Date Jame Hunt MD [address] [place] [address] PCP - General Internal Medicine 08/15/16 Kim La, [facility] [address] [place] [address] Pharmacist Pharmacy 07/17/18 Vaughn Reeves, RN [facility] [address] [place] [address] Registered Nurse Transplant Center 04/13/19 Ricki Dc MD [address] [place] [address] [place] [address] Marker Hand Nephrology 01/11/20 Vicente Vargas MD [address] [place] [address] Cardiology 04/05/21 Roxie Palmer, NIEVES [address] [place], [place] [phone] Civil Engineer In Training 09/11/21 De Icer Finisher Relationship Specialty Start Date End Date Jame Hunt MD [address] [place] [address] PCP - General Internal Medicine 08/15/16 Kim La, [facility] [address] [place] [address] Pharmacist Pharmacy 07/17/18 Vaughn Reeves, RN [facility] [address] [place] [address] Registered Nurse Transplant Center 04/13/19 Ricki Dc MD [address] [place] [address] [place] [address] Marker Hand Nephrology 01/11/20 Vicente Vargas MD [address] [place] [address] Cardiology 04/05/21 Roxie Palmer RN [address] [place], [place] [phone] Civil Engineer In Training 09/11/21 De Icer Finisher Relationship Specialty Start Date End Date Jame Hunt MD [address] [place] [address] PCP - General Internal Medicine 08/15/16 Kim La, [facility] [address] [place] [address] Pharmacist Pharmacy 07/17/18 Vaughn Reeves, NIEVES [facility] [address] [place] [address] Registered Nurse Transplant Center 04/13/19 Ricki Dc MD [address] [place] [address] [place] [address] Marker Hand Nephrology 01/11/20 Vicente Vargas MD [address] [place] [address] Cardiology 04/05/21 Roxie Palmer, NIEVES [address] [place], [place] [phone] Civil Engineer In Training 09/11/21 De Icer Finisher Relationship Specialty Start Date End Date Jame Hunt MD [address] [place] [address] PCP - General Internal Medicine 08/15/16 Kim La, [facility] [address] [place] [address] Pharmacist Pharmacy 07/17/18 Vaughn Reeves, NIEVES [facility] [address] [place] [address] Registered Nurse Transplant Center 04/13/19 Ricki Dc MD [address] [place] [address] [place] [address] Marker Hand Nephrology 01/11/20 Vicente Vargas MD [address] [place] [address] Cardiology 04/05/21 Roxie Palmer, [facility] [address] [place], [place] [id number] Civil Engineer In Training 09/11/21 De Icer Finisher Relationship Specialty Start Date End Date Jame Hunt MD [address] [place] [address] PCP - General Internal Medicine 08/15/16 Conde, Kim, [facility] [address] [place] [address] Pharmacist Pharmacy 07/17/18 Vaughn Reeves, NIEVES [facility] [address] [place] [address] Registered Nurse Transplant Center 04/13/19 Ricki Dc MD [address] [place] [address] [place] [address] Marker Hand Nephrology 01/11/20 Vicente Vargas MD [address] [place] [address] Cardiology 04/05/21 Roxie Palmer, NIEVES [address] [place], [place] 7187131 Civil Engineer In Training 09/11/21 De Icer Finisher Relationship Specialty Start Date End Date Jame Hunt MD [address] [place] [address] PCP - General Internal Medicine 08/15/16 AbhinavKim harris, [facility] [address] [place] [address] Pharmacist Pharmacy 07/17/18 Vaughn Reeves RN [facility] [address] [place] [address] Registered Nurse Transplant Center 04/13/19 Ricki Dc MD [address] [place] [address] [place] [address] Marker Hand Nephrology 01/11/20 Vicente Vargas MD [address] [place] [address] Cardiology 04/05/21 Roxie Palmer, NIEVES [address] [place], [place] [phone] Civil Engineer In Training 09/11/21 De Icer Finisher Relationship Specialty Start Date End Date Jame Hunt MD [address] [place] [address] PCP - General Internal Medicine 08/15/16 Kim La, [facility] [address] [place] [address] Pharmacist Pharmacy 07/17/18 Vaughn Reeves, NIEVES [facility] [address] [place] [address] Registered Nurse Transplant Center 04/13/19 Ricki Dc MD [address] [place] [address] [place] [address] Marker Hand Nephrology 01/11/20 Vicente Vargas MD [address] [place] [address] Cardiology 04/05/21 Roxie Palmer, NIEVES [address] [place], [place] [phone] Civil Engineer In Training 09/11/21 De Icer Finisher Relationship Specialty Start Date End Date Jame Hunt MD [address] [place] [address] PCP - General Internal Medicine 08/15/16 Kim La, [facility] [address] [place] [address] Pharmacist Pharmacy 07/17/18 Vaughn Reeves, NIEVES [facility] [address] [place] [address] Registered Nurse Transplant Center 04/13/19 Ricki Dc MD [address] [place] [address] [place] [address] Marker Hand Nephrology 01/11/20 Vicente Vargas MD [address] [place] [address] Cardiology 04/05/21 Roxie Palmer, NIEVES [address] [place], [place] [phone] Civil Engineer In Training 09/11/21 De Icer Finisher Relationship Specialty Start Date End Date Jame Hunt MD [address] [place] [address] PCP - General Internal Medicine 08/15/16 [facility] [address] [facility] [place] [address] Pharmacist Pharmacy 07/17/18 Vaughn Reeves, NIEVES [facility] [address] [place] [address] Registered Nurse Transplant Center 04/13/19 Ricki Dc MD [address] [place] [address] [place] [address] Marker Hand Nephrology 01/11/20 Vicente Vargas MD [address] [place] [address] Cardiology 04/05/21 Roxie Palmer, NIEVES [address] [place], [place] [phone] Civil Engineer In Training 09/11/21 De Icer Finisher Relationship Specialty Start Date End Date Jame Hunt MD [address] [place] [address] PCP - General Internal Medicine 08/15/16 [facility] [address] [place] [address], [place] [address] Pharmacist Pharmacy 07/17/18 Vuaghn Reeves RN [facility] [address] [place] [address] Registered Nurse Transplant Center 04/13/19 Ricki Dc MD [address] [place] [address] [place] [address] Marker Hand Nephrology 01/11/20 Vicente Vargas MD [address] [place] [address] Cardiology 04/05/21 Roxie Palmer, NIEVES [address] [place], [place] [id number] Civil Engineer In Training 09/11/21 De Icer Finisher Relationship Specialty Start Date End Date Jame Hunt MD [address] [place] [address] PCP - General Internal Medicine 08/15/16 [facility] [address] [place] [address] Pharmacist Pharmacy 07/17/18 Vaughn Reeves, NIEVES [facility] [address] [place] [address] Registered Nurse Transplant Center 04/13/19 Ricki Dc MD [address] [place] [address] [place] [address] Marker Hand Nephrology 01/11/20 Vicente Vargas MD [address] [place] [address] Cardiology 04/05/21 Roxie Palmer, NIEVES [address] [place], [place] [id number] Civil Engineer In Training 09/11/21 De Icer Finisher Relationship Specialty Start Date End Date Jame Hunt MD [address] [place] [address] PCP - General Internal Medicine 08/15/16 [facility] [address] [place] [address] Pharmacist Pharmacy 07/17/18 Vaughn Reeves RN [facility] [address] [place] [address] Registered Nurse Transplant Center 04/13/19 Ricki Dc MD [address] [address] Marker Hand Nephrology 01/11/20 Vicente Vargas MD [address] [place] [address] Cardiology 04/05/21 Roxie Palmer RN [address] [place], [place] [phone] Civil Engineer In Training 09/11/21 De Icer Finisher Relationship Specialty Start Date End Date Jame Hunt MD [address] [place] [address] PCP - General Internal Medicine 08/15/16 [facility] [address] [place] [address] Pharmacist Pharmacy 07/17/18 Vaughn Reeves RN [facility] [address] [place] [address] Registered Nurse Transplant Center 04/13/19 Ricki Dc MD [address] [place] [address] [facility] 01/11/20 Vicente Vargas MD [address] [place] [address] Cardiology 04/05/21 Roxie Palmer, NIEVES [address] [place], [place] [id number] Civil Engineer In Training 09/11/21 De Icer Finisher Relationship Specialty Start Date End Date Jame Hunt MD [address] [facility] [place] [address] PCP - General Internal Medicine 08/15/16 [facility] [address] [place] [address] Pharmacist Pharmacy 07/17/18 Vaughn Reeves RN [facility] [address] [place] [address] Registered Nurse Transplant Center 04/13/19 Ricki Dc MD [address] [address] [facility] 01/11/20 Vicente Vargas MD [address] [place] [address] Cardiology 04/05/21 Roxie Palmer RN [address] [place], [place] [id number] Civil Engineer In Training 09/11/21 De Icer Finisher Relationship Specialty Start Date End Date Jame Hunt MD [address] [place] [address] PCP - General Internal Medicine 08/15/[address] [address] Pharmacist Pharmacy 07/17/18 Vaughn Reeves RN [facility] [address] [place] [address] Registered Nurse Transplant Center 04/13/19 Ricki Dc MD [address] [address] [facility] 01/11/20 Vicente Vargas MD [address] [place] [address] Cardiology 04/05/21 Dasha Colvin, set illustratorCivil Engineer In Training 08/07/22 De Icer Finisher Relationship Specialty Start Date End Date Jame Hunt MD [address] [facility] [place] [address] PCP - General Internal Medicine 08/15/16 [facility] [address] [place] [address] Pharmacist Pharmacy 07/17/18 Vaughn Reeves RN [facility] [address] [place] [address] Registered Nurse Transplant Center 04/13/19 Ricki Dc MD [address] [address] [facility] 01/11/20 Vicente Vargas MD [address] [place] [address] Cardiology 04/05/21 Dasha Colvin, set illustratorCivil Engineer In Training 08/07/22 De Icer Finisher Relationship Specialty Start Date End Date Jame Hunt MD [address] [facility] [place], [place] [id number] PCP - General Internal Medicine 08/15/16 Kim La, [facility] [address] [place] [address] Pharmacist Pharmacy 07/17/18 Vaughn Reeves RN [facility] [address] [place] [address] Registered Nurse Transplant Center 04/13/19 Ricki cD MD [address] [address] [facility] 01/11/20 Vicente Vargas MD [address] [place] [address] Cardiology 04/05/21 Dasha Colvin, set illustratorCivil Engineer In Training 08/07/22 De Icer Finisher Relationship Specialty Start Date End Date Jame Hunt MD [address] [place] [address] PCP - General Internal Medicine 08/15/16 [facility] [address] [place] [address] Pharmacist Pharmacy 07/17/18 Vaughn Reeves RN [facility] [address] [place] [address] Registered Nurse Transplant Center 04/13/19 Ricki Dc MD [address] [address] [facility] 01/11/20 Vicente Vargas MD [address] [place] [address] Cardiology 04/05/21 Dasha Colvin, set illustratorCivil Engineer In Training 08/07/22 De Icer Finisher Relationship Specialty Start Date End Date Jame Hunt MD [address] [place] [address] PCP - General Internal Medicine 08/15/16 [facility] [address] [place] [address] Pharmacist Pharmacy 07/17/18 Vaughn Reeves RN [facility] [address] [place] [address] Registered Nurse Transplant Center 04/13/19 Ricki Dc MD [address] [address] [facility] 01/11/20 Vicente Vargas MD [address] [place] [address] Cardiology 04/05/21 Sienna Miller, set illustratorCivil Engineer In Training 09/18/22 De Icer Finisher Relationship Specialty Start Date End Date Jame Hunt MD [address] [place] [address] PCP - General Internal Medicine 08/15/16 [facility] [address] [place] [address] Pharmacist Pharmacy 07/17/18 Vaughn Reeves RN [facility] [address] [place] [address] Registered Nurse Transplant Center 04/13/19 Ricki Dc MD [address] [address] [facility] 01/11/20 Vicente Vargas MD [address] [place] [address] Cardiology 04/05/21 Sienna Miller, set illustratorCivil Engineer In Training 09/18/22 De Icer Finisher Relationship Specialty Start Date End Date Jame Hunt MD [address] [place] [address] PCP - General Internal Medicine 08/15/16 Kim La RPh [address] [place] [address] Pharmacist Pharmacy 07/17/18 Vaughn Reeves RN [facility] [address] [place] [address] Registered Nurse Transplant Center 04/13/19 Ricki Dc MD [address] [address] [facility] 01/11/20 Vicente Vargas MD [address] [place] [address] Cardiology 04/05/21 Sienna Miller set illustratorCivil Engineer In Training 09/18/22 De Icer Finisher Relationship Specialty Start Date End Date Jame Hunt MD [address] [place] [address] PCP - General Internal Medicine 08/15/16 [facility]av [facility] [address] [place] [address] Pharmacist Pharmacy 07/17/18 Vaughn Reeves RN [facility] [address] [place] [address] Registered Nurse Transplant Center 04/13/19 Ricki Dc MD [address] [address] [facility] 01/11/20 Vicente Vargas MD [address] [place] [address] Cardiology 04/05/21 Sienna Miller RN Civil Engineer In Training 09/18/22 De Icer Finisher Relationship Specialty Start Date End Date Jame Hunt MD [address] [place] [address] PCP - General Internal Medicine 08/15/16 Conde [facility] [address] [place] [address] Pharmacist Pharmacy 07/17/18 Vaughn Reeves RN [facility] [address] [place] [address] Registered Nurse Transplant Center 04/13/19 Ricki Dc MD [address] [address] [facility] 01/11/20 Vicente Vargas MD [address] [place] [address] (Fax) Cardiology 04/05/21 Sienna Miller set illustratorCivil Engineer In Training 09/18/22 De Icer Finisher Relationship Specialty Start Date End Date Jame Hunt MD [address] [place] [address] PCP - General Internal Medicine 08/15/16 [facility] [address] [place] [address] Pharmacist Pharmacy 07/17/18 Vaughn Reeves RN [facility] [address] [place] [address] Registered Nurse Transplant Center 04/13/19 Ricki Dc MD [address] [address] [facility] 01/11/20 Vicente Vargas MD [address] [place] [address] Cardiology 04/05/21 Sienna Miller RN Civil Engineer In Training 09/18/22 De Icer Finisher Relationship Specialty Start Date End Date Jame Hunt MD [address] [place] [address] PCP - General Internal Medicine 08/15/16 AbhinavKim harris, [facility] [address] [place] [address] Pharmacist Pharmacy 07/17/18 Vaughn Reeves RN [facility] [address] [place] [address] Registered Nurse Transplant Center 04/13/19 Ricki Dc MD [address] [place] [address] [facility] 01/11/20 Vicente Vargas MD [address] [place] [address] Cardiology 04/05/21 Sienna Miller, set illustratorCivil Engineer In Training 09/18/22 De Icer Finisher Relationship Specialty Start Date End Date Jame Hunt MD [address] [place] [address] PCP - General Internal Medicine 08/15/16 Kim La, [facility] [address] [place] [address] Pharmacist Pharmacy 07/17/18 Vaughn Reeves RN [facility] [address] [place] [address] Registered Nurse Transplant Center 04/13/19 Ricki Dc MD [address] [place] [address] [facility] 01/11/20 Vicente Vargas MD [address] [place] [address] Cardiology 04/05/21 Sienna Miller set illustratorCivil Engineer In Training 09/18/22 De Icer Finisher Relationship Specialty Start Date End Date Jame Hunt MD [address] [place] [address] PCP - General Internal Medicine 08/15/16 Kim La, [facility] [address] [place] [address] Pharmacist Pharmacy 07/17/18 Vaughn Reeves RN [facility] [address] [place] [address] Registered Nurse Transplant Center 04/13/19 Ricki Dc MD [address] [address] [facility] 01/11/20 Vicente Vargas MD [address] [place] [address] Cardiology 04/05/21 Sienna Miller RN Civil Engineer In Training 09/18/22 De Icer Finisher Relationship Specialty Start Date End Date Jame Hunt MD [address] [place] [address] PCP - General Internal Medicine 08/15/16 Kim La, [facility] [address] [place] [address] Pharmacist Pharmacy 07/17/18 Vaughn Reeves RN [facility] [address] [place] [address] Registered Nurse Transplant Center 04/13/19 Ricki Dc MD [address] [address] [facility] 01/11/20 Vicente Vargas MD [address] [place] [address] Cardiology 04/05/21 Sienna Miller, set illustratorCivil Engineer In Training 09/18/22 De Icer Finisher Relationship Specialty Start Date End Date Jame Hunt MD [address] [place] [address] PCP - General Internal Medicine 08/15/16 [facility] [address] [place] [address] Pharmacist Pharmacy 07/17/18 Vaughn Reeves RN [facility] [address] [place] [address] Registered Nurse Transplant Center 04/13/19 Ricki Dc MD [address] [address] [facility] 01/11/20 Vicente Vargas MD [address] [place] [address] Cardiology 04/05/21 Sienna Miller, set illustratorCivil Engineer In Training 09/18/22 De Icer Finisher Relationship Specialty Start Date End Date Jame Hunt MD [address] [place] [address] PCP - General Internal Medicine 08/15/16 Kim [facility] [address] [place] [address] Pharmacist Pharmacy 07/17/18 Vaughn Reeves RN [facility] [address] [place] [address] Registered Nurse Transplant Center 04/13/19 Ricki Dc MD [address] [address] [facility] 01/11/20 Vicente Vargas MD [address] [place] [address] Cardiology 04/05/21 Sienna Miller, set illustratorCivil Engineer In Training 09/18/22 De Icer Finisher Relationship Specialty Start Date End Date Jame Hunt MD [address] [place] [address] PCP - General Internal Medicine 08/15/16 Kim La, [facility] [address] [place] [address] Pharmacist Pharmacy 07/17/18 Vaughn Reeves RN [facility] [address] [place] [address] Registered Nurse Transplant Center 04/13/19 Ricik Dc MD [address] [address] [facility] 01/11/20 Vicente Vargas MD [address] [place] [address] Cardiology 04/05/21 Sienna Miller, set illustratorCivil Engineer In Training 09/18/22 De Icer Finisher Relationship Specialty Start Date End Date Jame Hunt MD [address] [place] [address] PCP - General Internal Medicine 08/15/16 Abhinav Kim, [facility] [address] [place] [address] Pharmacist Pharmacy 07/17/18 Vaughn Reeves RN [facility] [address] [place] [address] Registered Nurse Transplant Center 04/13/19 Ricki Dc MD [address] [address] [facility] 01/11/20 Vicente Vargas MD [address] [place] [address] Cardiology 04/05/21 Sienna Miller set illustratorCivil Engineer In Training 09/18/22 De Icer Finisher Relationship Specialty Start Date End Date Jame Hunt MD [address] [place] [address] PCP - General Internal Medicine 08/15/16 Conde [facility] [address] [place] [address] Pharmacist Pharmacy 07/17/18 Vaughn Reeves RN [facility] [address] [place] [address] Registered Nurse Transplant Center 04/13/19 Ricki Dc MD [address] [address] [facility] 01/11/20 Vicente Vargas MD [address] [place] [address] Cardiology 04/05/21 Sienna Miller RN Civil Engineer In Training 09/18/22 De Icer Finisher Relationship Specialty Start Date End Date Jame Hunt MD [address] [place] [address] PCP - General Internal Medicine 08/15/16 Kim La, [facility] [address] [place] [address] Pharmacist Pharmacy 07/17/18 Vaughn Reeves RN [facility] [address] [place] [address] Registered Nurse Transplant Center 04/13/19 Ricki Dc MD [address] [place] [address] [facility] 01/11/20 Vicente Vargas MD [address] [place] [address] Cardiology 04/05/21 Roxie Palmer RN [address] [place] [address] Civil Engineer In Training 09/11/2108/06 De Icer Finisher Relationship Specialty Start Date End Date Jame Hunt MD [address] [place] [address] PCP - General Internal Medicine 08/15/16 [facility] [address] [place] [address] Pharmacist Pharmacy 07/17/18 Vaughn Reeves RN [facility] [address] [place] [address] Registered Nurse Transplant Center 04/13/19 Ricki Dc MD [address] [place] [address] [facility] 01/11/20 Vicente Vargas MD [address] [place] [address] (Fax) Cardiology 04/05/21 Sienna Miller, set illustratorCivil Engineer In Training 09/18/22 De Icer Finisher Relationship Specialty Start Date End Date Jame Hunt MD [address] [place] [address] PCP - General Internal Medicine 08/15/16 Kim La, [facility] [address] [place] [address] Pharmacist Pharmacy 07/17/18 Vaughn Reeves RN [facility] [address] [place] [address] Registered Nurse Transplant Center 04/13/19 Ricki Dc MD [address] [address] [facility] 01/11/20 Vicente Vargas MD [address] [place] [address] Cardiology 04/05/21 Sienna Miller set illustratorCivil Engineer In Training 09/18/22 Lizeth Bey MD [address] [place] [address] Primary Staff Physician Cardiology 01/10/23 De Icer Finisher Relationship Specialty Start Date End Date Jame Hunt MD [address] [place] [address] PCP - General Internal Medicine 08/15/16 Kim La, [facility] [address] [place] [address] Pharmacist Pharmacy 07/17/18 Vaughn Reeves RN [facility] [address] [place] [address] Registered Nurse Transplant Center 04/13/19 Ricki Dc MD [address] [address] [facility] 01/11/20 Vicente Vargas MD [address] [place] [address] Cardiology 04/05/21 Sienna Miller RN Civil Engineer In Training 09/18/22 Lizeth Bey MD [address] [place] [address] Primary Staff Physician Cardiology 01/10/23 De Icer Finisher Relationship Specialty Start Date End Date Jame Hunt MD [address] [place] [address] PCP - General Internal Medicine 08/15/16 Kim La, [facility] [address] [place], [place] [address] Pharmacist Pharmacy 07/17/18 Vaughn Reeves RN [facility] [address] [place] [address] Registered Nurse Transplant Center 04/13/19 Ricki Dc MD [address] [address] [facility] 01/11/20 Vicente Vargas MD [address] [place] [address] Cardiology 04/05/21 Sienna Miller RN Civil Engineer In Training 09/18/22 Lizeth Bey MD [address] [place] [address] Primary Staff Physician Cardiology 01/10/23 De Icer Finisher Relationship Specialty Start Date End Date Jame Hunt MD [address] [place] [address] PCP - General Internal Medicine 08/15/16 Kim La, [facility] [address] [place] [address] Pharmacist Pharmacy 07/17/18 Vaughn Reeves, NIEVES [facility] [address] [place] [address] Registered Nurse Transplant Center 04/13/19 Ricki Dc MD [address] [address] [facility] 01/11/20 Vicente Vargas MD [address] [place] [address] Cardiology 04/05/21 Sienna Miller, set illustratorCivil Engineer In Training 09/18/22 Lizeth Bey MD [address] [place] [address] Primary Staff Physician Cardiology 01/10/23 De Icer Finisher Relationship Specialty Start Date End Date Jame Hunt MD [address] [place] [address] PCP - General Internal Medicine 08/15/16 Kim La, [facility] [address] [place] [address] Pharmacist Pharmacy 07/17/18 Vaughn Reeves, NIEVES [facility] [address] [place] [address] Registered Nurse Transplant Center 04/13/19 Ricki Dc MD [address] [address] [facility] 01/11/20 Vicente Vargas MD [address] [place] [address] (Fax) Cardiology 04/05/21 Sienna Miller, set illustratorCivil Engineer In Training 09/18/22 Lizeth Bey MD [address] [place] [address] Primary Staff Physician Cardiology 01/10/23 De Icer Finisher Relationship Specialty Start Date End Date Jame Hunt MD [address] [place] [address] PCP - General Internal Medicine 08/15/16 Kim La, [facility] [address] [place] [address] Pharmacist Pharmacy 07/17/18 Vaughn Reeves, [facility]ES [facility] [address] [place] [address] Registered Nurse Transplant Center 04/13/19 Ricki Dc MD [address] [address] [facility] 01/11/20 Vicente Vargas MD [address] [place] [address] Cardiology 04/05/21 Sienna Miller set illustratorCivil Engineer In Training 09/18/22 Lizeth Bey MD [address] [place] [address] Primary Staff Physician Cardiology 01/10/23 De Icer Finisher Relationship Specialty Start Date End Date Jame Hunt MD [address] [place] [address] PCP - General Internal Medicine 08/15/16 Kim La, [facility] [address] [place] [address] Pharmacist Pharmacy 07/17/18 Vaughn Reeves RN [facility] [address] [place] [address] Registered Nurse Transplant Center 04/13/19 Ricki Dc MD [address] [place] [address] [facility] 01/11/20 Vicente Vargas MD [address] [place] [address] Cardiology 04/05/21 Sienna Miller RN Civil Engineer In Training 09/18/22 Lizeth Bey MD [address] [place] [address] Primary Staff Physician Cardiology 01/10/23 FOR RECORDS [...] BE BASED ON THE PRIMARY CLINICAL RECORDS. [employer] [facility]. provides no warranty or guarantee of the accuracy or completeness of information in this document.
[2023-03-25] MEDS: Pramipexole Di-HCl 0.25 MG Tablet 0.75 MG PO (05:25)
[2023-03-25] MEDS: Sucralfate 1 GM Tablet PO ×2 (05:26→17:08)
[2023-03-25] MEDS: Levothyroxine 88 MCG Tablet PO (05:26)
[2023-03-25] MEDS: HYDROcodone Bitartrate/Apap 5/325 Tablet PO ×2 (05:26→18:24)
--- NOTE | 2023-03-25 08:00 | PCM.PN.HOSP ---
Reason for Visit Reason for Visit: Diagnoses End stage renal disease (03/25/23) Urinary tract infection, site not specified (03/25/23) Difficulty in walking, not elsewhere classified (03/25/23) Repeated falls (03/25/23) Liver transplant status (03/25/23) Dependence on renal dialysis (03/25/23) Objective Data Objective Data Vital Signs: Vital Signs Temp Pulse Resp BP Pulse Ox O2 Del Method 98.3 F 90 16 159/72 H 100 Room Air 03/25/23 05:12 03/25/23 05:12 03/25/23 05:12 03/25/23 05:12 03/25/23 05:12 03/25/23 05:12 Oxygen Delivery Method Room Air Weight: 238 lb 9.6 oz Body Mass Index (BMI) 39.6 Intake & Output: Intake and Output for Last 24 Hours 03/23/23 03/24/23 03/25/23 23:59 23:59 23:59 Intake Total 500 / 500 Balance 500 / 500 Lab / Micro Data 03/24/23 21:03 03/24/23 21:03 Labs: Laboratory Results - last 24 hr 03/24/23 21:03: WBC 3.9 L, RBC 3.38 L, Hgb 10.1 L, Hct 33.3 L, MCV 98.5, MCH 29.9, MCHC 30.3 L, RDW Std Deviation 71.4 H, RDW Coeff of Tami 19.7 H, Plt Count 80 L, MPV 11.1, Immature Gran % (Auto) 0.800, Neut % (Auto) 75.9 H, Lymph % (Auto) 13.2 L, Drew % (Auto) 6.2, Eos % (Auto) 3.9, Baso % (Auto) 0.0, Absolute Neuts (auto) 2.9, Absolute Lymphs (auto) 0.51 L, Nucleated RBC % 0, Differential Comment SCANNED, Diff Path Review May foll, Platelet Estimate MOD DEC, Anisocytosis 1+, Sodium 138, Potassium 3.7, Chloride 99, Carbon Dioxide 33.0 H, Anion Gap 6, BUN 34 H, Creatinine 6.80 H, Estim Creat Clear Calc 10.29, Est GFR (MDRD) Af Amer 8 L, Est GFR (MDRD) Non-Af 7 L, BUN/Creatinine Ratio 5.0 L, Glucose 104, Calcium 9.4, Total Creatine Kinase 75 03/24/23 22:14: Urine Color Yellow, Urine Clarity Cloudy, Urine pH 8.0, Ur Specific [place] 1.015, Urine Protein 100 H, Urine Glucose (UA) Normal, Urine Ketones 5 H, Urine Occult Blood 50 H, Urine Nitrite Negative, Urine Bilirubin Negative, Urine Urobilinogen Normal, Ur Leukocyte Esterase 500 H, Urine RBC 0 SEEN, Urine WBC >100 SEEN, Ur Squamous Epith Cells 0 SEEN, Urine Bacteria 0 SEEN, Urine Mucus 0 SEEN Micro: Microbiology 03/24/23 20:55 Mucosa - Nose SARS-CoV-2, Influenza & RSV (PCR) - Final Radiography Diagnostic Testing: Radiology Impression Chest X-Ray 03/24/23 20:45 IMPRESSION: No acute cardiopulmonary pathology. Electronically Signed: Reji Sarmiento MD at 22:23 EST Reading Location ID and State: [facility] / [place] Tel [phone], Service support , Ankle X-Ray 03/24/23 20:47 IMPRESSION: Bimalleolar sprain. No acute fracture or dislocation Electronically Signed: Reji Sarmiento MD at 22:21 EST Reading Location ID and State: [facility] / [place] Tel [phone], Service support , Foot X-Ray 03/24/23 20:47 IMPRESSION: No evidence for acute fracture or dislocation. Apparent metallic foreign bodies within the soft tissues of the plantar surface of the lateral foot. Clinical correlation is recommended Electronically Signed: Reji Sarmiento MD at 22:27 EST Reading Location ID and State: [facility] / [place] Tel [phone], Service support , Shoulder X-Ray 03/24/23 20:47 IMPRESSION: Mild inferior subluxation of the shoulder without evidence for associated fracture Electronically Signed: Reji Sarmiento MD at 22:24 EST , Knee X-Ray 03/24/23 20:48 IMPRESSION: Degenerative changes. No acute fracture or dislocation Electronically Signed: Reji Sarmiento MD at 22:17 EST , Brain CT 03/24/23 21:39 IMPRESSION: No acute abnormalities identified. Specifically, no evidence for obstructive hydrocephalus mass or acute bleed. If concern for acute infarct MRI recommended Electronically Signed: Reji Sarmiento MD at 22:30 EST , Cervical Spine CT 03/24/23 21:39 IMPRESSION: Mild spondylosis. No acute fracture or other significant abnormality. Electronically Signed: Reji Sarmiento MD at 22:32 EST , Rhythm Strip Rhythm Strip: Sinus Rhythm Rate: 82 Ectopy: None Physical Exam Narrative Seen and examined. Patient states she has mild constipation. No fever. Denies any acute change in mental status. She has gait instability and problem in balance and admitted after a fall. General: Alert, Oriented x3, Cooperative HEENT: Atraumatic, PERRLA, EOMI, Normocephalic Oral: No Gingival or Mucosal Lesions/ Ulcerations Neck: Supple, No JVD, Negative Carotid Bruits Lungs: Air entry diminished in bilateral lung bases. No crepitation/rhonchi Cardiovascular: Regular rate, Regular Rhythm, Normal S1, Normal S2, LUSB murmur. Abdomen: Status post OLT bowel Sounds Present, Soft, Non Tender, Non-Distended : On hemodialysis. No renal angle tenderness. No suprapubic tenderness. Extremities: No edema, Capillary Refill Less than 3 Seconds Skin: No rashes, No breakdown Musculoskeletal: No Tenderness to Palpation of Joints or Extremities Neurological: Cranial nerves II-XII grossly intact, DTR 2+/4. No acute focal neurological deficit. Psych/Mental Status: Flat affect. Assessment & Plan Assessment/Plan (1) Acute UTI: (2) Multiple falls: (3) Unable to ambulate: (4) End stage renal disease on dialysis: (5) History of liver transplant: PLAN: Plan 67-year-old female with multiple comorbidities admitted with generalized weakness and a fall. She had 2 falls on the day of admission states, her legs gave out. Left knee buckled and she has bruise on that. She also had soft tissue injury on her right ankle with numbness and diffuse pain. SARS-CoV-2 influenza and RSV PCR negative. 1. Acute cystitis; without hematuria - Continue IV Levaquin begun in the ER given patient's allergy profile and await culture and sensitivity data. 2. Multiple falls at home with imaging negative for acute fracture in the setting of morbid obesity; with BMI of 41.1 Place on fall precautions and give Tylenol prn for [id number] (level 1-5) pain or fever. 3. Generalized weakness with ambulatory dysfunction - PT/OT and Design Technology Professor to consult and treat on-rounds in the AM with help appreciated in advance as she will likely need some degree of rehabilitation. 4. ESRD on HD; (M-W-) - consult nephrology so that her HD can be continued. She is undergoing kidney transplant evaluation in [facility]. 5. History of HOFFMAN with Cirrhosis; s/p liver transplant (~2006) -She is on tacrolimus 0.5 mg twice daily. This is being followed by quality management coordinator, Poli Snyder. She denies any change in mental status but attributes her fall to gait instability. Lactulose and Xifaxan ordered. 6. Chronic thrombocytopenia (62-112) - Platelet level of 80 noted on admission. Check daily CBC to ensure continued stability. 7. History of chronic diastolic CHF; with preserved LVEF - Stable. Continue home medications as previous. 8. Essential hypertension - Continue home medications as previous. 8. Hyperlipidemia - Resume statin. 9. DM-2; of unknown control - ADA diet. FSBS q. AC/HS plus SSI. 10. History of DFU - Noted. 11. History of uterine and cervical cancer - Noted. 12. Psoriasis - Stable with no evidence of flare. 13. RLS - Continue Ropinirole. 14. CARSON - Stable. 15. OA - Give Tylenol prn. 16. DVT prophylaxis - SCD's only with thrombocytopenia of 80 present on admission contraindicating treatment with heparin or heparinoids. Charges/Coding Visit Charges Inpatient E&M: 45618 Subs Hosp L2
[2023-03-25] MEDS: Carvedilol 12.5 MG Tablet PO ×2 (08:19→17:03)
[2023-03-25] MEDS: Insulin Glargine-YFGN 100 UNIT/ML Pen 24 UNIT SC ×2 (08:19→20:57)
[2023-03-25] MEDS: Omega-3 Acid Ethyl Esters 1 GM Capsule PO (08:19)
[2023-03-25] MEDS: Aspirin E.C. 81 MG Tablet PO (08:19)
[2023-03-25] MEDS: SEVELAMER CARBONATE 800 MG TABLET 1600 MG PO ×3 (08:20→17:04)
[2023-03-25] MEDS: Pantoprazole Sodium 40 MG Tablet PO ×2 (08:20→20:59)
[2023-03-25] MEDS: Tacrolimus 0.5 MG Capsule PO ×2 (08:20→20:59)
[2023-03-25] MEDS: Sertraline 50 MG Tablet PO (08:20)
[2023-03-25] MEDS: Vitamin B Comp W-C Capsule 1 CAP PO (08:20)
[2023-03-25] MEDS: Cholecalciferol (VIT D3) 25 MCG TABLET (1,000 UNITS) PO ×2 (08:20→21:01)
[2023-03-25] MEDS: Insulin Lispro 100 UNIT/ML INSULN.PEN 6 UNIT SC ×2 (08:26→11:51)
[2023-03-25 08:47] LABS: Bedside Glucose 118 mg/dL (74-106)
[2023-03-25] MEDS: Midodrine HCl 5 MG Tablet 10 MG PO (11:50)
--- NOTE | 2023-03-25 12:07 | PCM.CONS.R ---
Assessment & Plan Assessment/Plan (1) End stage renal disease on dialysis: PLAN: On hemodialysis Saturday, Saturday, Saturday schedule. Last dialysis was Saturday. Will arrange for dialysis today. Hypotension. Blood pressure was okay on admission. HPI Consult Data Date of Consult: 03/25/23 HPI Narrative Reason for Consultation: ESRD HPI Narrative: CHRISTINA KUO, is a 67 F who presents to the hospital after a mechanical fall. Apparently she has had lower extremity weakness, fell down 2-3 times. Denies passing out. Usually blood pressure has been okay but she does require midodrine before dialysis for hypotension. Chronic history of lymphedema, uses diuretics at home. No recent changes in medications. Breathing is acceptable. History of ESRD, on hemodialysis, Saturday, Saturday, Saturday schedule. Last dialysis was Saturday. Uneventful. [facility] Medical History Anemia Anemia in chronic kidney disease Anxiety Back pain Blister Cancer Cardiology follow-up encounter Celiac disease Chronic kidney disease, stage 3 Chronic kidney failure Chronic renal failure, stage 5 Cirrhosis COPD (chronic obstructive pulmonary disease) Depression Diabetes Dialysis patient DVT (deep venous thrombosis) DVT (deep venous thrombosis) ESRD (end stage renal disease) Gastric reflux GERD (gastroesophageal reflux disease) History of echocardiogram (~01/22/20) History of edema History of irregular heartbeat History of renal dialysis History of renal disease History of stress test (~12/07/19) History of uterine cancer Hx of Krueger's palsy Hypertension Hypertension Hypothyroidism Infection involving suture with abscess Insulin dependent diabetes mellitus Irregular heart beat LIVER TRANSPLANT Non-smoker Osteoporosis Pancytopenia Sleep apnea Thyroid disease Uses wheelchair Walker as ambulation aid Wears dentures Wears glasses Home Medications ascorbic acid (vitamin C) 500 mg chewable tablet 1,000 mg PO DAILY supplement 02/20/15 [History Last Taken 09/09/19] cholecalciferol (vitamin D3) 25 mcg (1,000 unit) tablet 1,000 unit PO BID supplement 02/20/15 [History Last Taken 09/09/19] insulin glargine 100 unit/mL (3 mL) subcutaneous pen (Lantus Solostar U-100 Insulin) 34 unit subcut BID blood sugar 05/29/18 [History Last Taken 01/30/23] tacrolimus 1 mg capsule, immediate-release (Prograf) 0.5 mg PO BID REJECTION 09/10/19 [History Last Taken 04/27/21] vitamin B complex 1 tablet PO DAILY SUPPLEMENT 09/10/19 [History Last Taken 09/09/19] carvedilol 25 mg tablet 12.5 mg PO BID heart 02/25/20 [History Last Taken 01/30/23] hydroxyzine HCl 25 mg tablet 25 mg PO BID PRN Itching 05/23/20 [History Last Taken Unknown] ropinirole 1 mg tablet 1 mg PO DAILY restless legs 05/23/20 [History Last Taken 06/16/20] torsemide 20 mg tablet 60 mg PO DAILY FLUID 05/23/20 [History Last Taken Unknown] ropinirole 2 mg tablet,extended release 24 hr 2 mg PO QHS restless legs 06/10/20 [History Last Taken Unknown] sevelamer carbonate 800 mg tablet (Renvela) 1,600 mg PO .TID AC kidney disease 06/10/20 [History Last Taken Unknown] nitroglycerin 0.4 mg sublingual tablet 0.4 mg sublingual Q5M PRN Cardiac/Chest Pain #30 tabs 04/29/21 [Rx Last Taken Unknown] biotin 1 mg capsule 1 mg PO BID supplement 08/11/21 [History Last Taken Unknown] melatonin 3 mg tablet 10 mg PO QHS sleep 08/11/21 [History Last Taken Unknown] sertraline 50 mg tablet (Zoloft) 50 mg PO DAILY mood 08/11/21 [History Last Taken Unknown] albuterol sulfate 90 mcg/actuation aerosol inhaler 2 puff IH Q4H PRN PRN Sob &/Or Wheezing 30 days #8.6 grams 10/25/21 [Rx Last Taken Unknown] diphenoxylate-atropine 2.5 mg-0.025 mg tablet (Lomotil) 1 tab PO TID PRN diarrhea #90 tabs 10/27/21 [Rx Last Taken 12/30/22] hydrocodone-acetaminophen 5-325mg 5mg-325mg 1 tab PO Q6H PRN PRN Pain 3 days #10 TABLETS 04/07/22 [Rx Last Taken Unknown] apremilast 30 mg tablet (Otezla) 30 mg PO DAILY 09/08/22 [History Last Taken Unknown] insulin aspart U-100 100 unit/mL (3 mL) subcutaneous pen (Novolog FlexPen U-100 Insulin aspart) 10 unit subcut TID 09/08/22 [History Last Taken Unknown] gabapentin 100 mg capsule 200 mg PO QHS 12/31/22 [History Last Taken Unknown] levothyroxine 88 mcg tablet 88 mcg PO DAILY 12/31/22 [History Last Taken 01/30/23] midodrine 10 mg tablet 10 mg PO MOWEFR 12/31/22 [History Last Taken Unknown] sucralfate 1 gram tablet (Carafate) 1 g PO BID #30 tabs 12/31/22 [Rx Last Taken Unknown] trazodone 100 mg tablet 200 mg PO QHS 12/31/22 [History Last Taken Unknown] pantoprazole 40 mg tablet,delayed release 40 mg PO BID #60 tabs 01/08/23 [Rx Last Taken Unknown] aspirin 81 mg tablet,delayed release (Adult Aspirin Regimen) 81 mg PO DAILY 01/28/23 [History Last Taken 01/26/23] omega 3-yqc-fle-fish oil 1,200 mg (144 mg-216 mg) capsule (Fish Oil) 1 cap PO DAILY SUPPLEMENT 01/28/23 [History Last Taken Unknown] atorvastatin 40 mg tablet 40 mg PO QHS #30 tabs 02/12/23 [Rx Last Taken Unknown] bisacodyl 10 mg rectal suppository (Dulcolax (bisacodyl)) 10 mg [place] DAILY PRN constipation #30 ea 02/12/23 [Rx Last Taken Unknown] baclofen 5 mg tablet 5 mg PO QHS #30 tabs 03/18/23 [Rx Last Taken Unknown] Allergy/AdvReac Type Severity Reaction Status Date / Time amlodipine [From Norvasc] Allergy Severe Hives Verified 03/24/23 20:03 ampicillin sodium Allergy Severe Hives Verified 03/24/23 20:03 [From Unasyn] buspirone HCl [From BuSpar] Allergy Severe Hives Verified 03/24/23 20:03 cefadroxil [From Duricef] Allergy Severe Hives Verified 03/24/23 20:03 lisinopril Allergy Severe Swelling Verified 03/24/23 20:03 naproxen Allergy Severe Hives Verified 03/24/23 20:03 niacin Allergy Severe Hives Verified 03/24/23 20:03 [From Niaspan Extended-Release] sulbactam sodium Allergy Severe Hives Verified 03/24/23 20:03 [From Unasyn] Sulfa (Sulfonamide Allergy Severe Hives Verified 03/24/23 20:03 Antibiotics) cephalexin [From Keflex] Allergy Vomiting Verified 03/24/23 20:03 omeprazole AdvReac Severe Other Verified 03/24/23 20:03 losartan AdvReac Swelling Verified 03/24/23 20:03 Family History Mother Diabetes Anemia Father Hypertension LUNG/RESPIRATORY DISEASE Surgical History History of appendectomy History of cardiac catheterization History of cholecystectomy History of coronary artery stent placement History of coronary artery stent placement History of left knee surgery History of left salpingo-oophorectomy History of liver transplant History of radical hysterectomy History of ventral hernia repair S/P arteriovenous (AV) fistula creation (~06/16/20) Social History housing: apartment current occupational status: disabled Smoking Status: Never smoker substance use type: does not use ROS ROS Narrative Negative except above Physical Exam Narrative Alert awake oriented x 3 no obvious distress no pallor no icterus no JVD s1s2 no murmurs lungs clear abdomen soft no organomegaly no edema no cyanosis Lab / Micro Data 03/24/23 21:03 03/24/23 21:03 Labs: Laboratory Results - last 24 hr 03/24/23 21:03: WBC 3.9 L, RBC 3.38 L, Hgb 10.1 L, Hct 33.3 L, MCV 98.5, MCH 29.9, MCHC 30.3 L, RDW Std Deviation 71.4 H, RDW Coeff of Tami 19.7 H, Plt Count 80 L, MPV 11.1, Immature Gran % (Auto) 0.800, Neut % (Auto) 75.9 H, Lymph % (Auto) 13.2 L, [place] % (Auto) 6.2, Eos % (Auto) 3.9, Baso % (Auto) 0.0, Absolute Neuts (auto) 2.9, Absolute Lymphs (auto) 0.51 L, Nucleated RBC % 0, Differential Comment SCANNED, Diff Path Review May foll, Platelet Estimate MOD DEC, Anisocytosis 1+, Sodium 138, Potassium 3.7, Chloride 99, Carbon Dioxide 33.0 H, Anion Gap 6, BUN 34 H, Creatinine 6.80 H, Estim Creat Clear Calc 10.29, Est GFR (MDRD) Af Amer 8 L, Est GFR (MDRD) Non-Af 7 L, BUN/Creatinine Ratio 5.0 L, Glucose 104, Calcium 9.4, Total Creatine Kinase 75 03/24/23 22:14: Urine Color Yellow, Urine Clarity Cloudy, Urine pH 8.0, Ur Specific [place] 1.015, Urine Protein 100 H, Urine Glucose (UA) Normal, Urine Ketones 5 H, Urine Occult Blood 50 H, Urine Nitrite Negative, Urine Bilirubin Negative, Urine Urobilinogen Normal, Ur Leukocyte Esterase 500 H, Urine RBC 0 SEEN, Urine WBC >100 SEEN, Ur Squamous Epith Cells 0 SEEN, Urine Bacteria 0 SEEN, Urine Mucus 0 SEEN 03/25/23 08:18: POC Glucose 118 H Micro: Microbiology 03/24/23 20:55 Mucosa - Nose SARS-CoV-2, Influenza & RSV (PCR) - Final Rhythm Strip Rhythm Strip: Sinus Rhythm Rate: 82 Ectopy: None Imagaing Radiology Impression Chest X-Ray 03/24/23 20:45 IMPRESSION: No acute cardiopulmonary pathology. Electronically Signed: Reji Sarmiento MD at 22:23 EST Reading Location ID and State: [facility] / [place] Tel [phone], Service support , Ankle X-Ray 03/24/23 20:47 IMPRESSION: Bimalleolar sprain. No acute fracture or dislocation Electronically Signed: Reji Sarmiento MD at 22:21 EST , Foot X-Ray 03/24/23 20:47 IMPRESSION: No evidence for acute fracture or dislocation. Apparent metallic foreign bodies within the soft tissues of the plantar surface of the lateral foot. Clinical correlation is recommended Electronically Signed: Reji Sarmiento MD at 22:27 EST Reading Location ID and State: [address] [place] [address] Tel [phone], Service support , Shoulder X-Ray 03/24/23 20:47 IMPRESSION: Mild inferior subluxation of the shoulder without evidence for associated fracture Electronically Signed: Reji Sarmiento MD at 22:24 EST Reading Location ID and State: [address] [place] [address] Tel [phone], Service support , Knee X-Ray 03/24/23 20:48 IMPRESSION: Degenerative changes. No acute fracture or dislocation Electronically Signed: Reji Sarmiento MD at 22:17 EST Reading Location ID and State: [address] [place] [address] Tel [phone], Service support , Brain CT 03/24/23 21:39 IMPRESSION: No acute abnormalities identified. Specifically, no evidence for obstructive hydrocephalus mass or acute bleed. If concern for acute infarct MRI recommended Electronically Signed: Reji Sarmiento MD at 22:30 EST Reading Location ID and State: [address] [place] [address] Tel [phone], Service support , Cervical Spine CT 03/24/23 21:39 IMPRESSION: Mild spondylosis. No acute fracture or other significant abnormality. Electronically Signed: Reji Sarmiento MD at 22:32 EST Reading Location ID and State: [address] [place] [address] Tel [phone], Service support ,
--- NOTE | 2023-03-25 13:01 | CASEMGMT ---
NIEVES BIANCHI Assessment Face to Face with patient for initial transition planning/care coordination assessment. NIEVES BIANCHI introduced self and role at [facility], pt voices understanding. Pt is A&Ox4 and is resting comfortably in bed and is calm. Pt at bedside. Care providers, pharmacy, and demographics verified. Admitting dx: Acute cystitis, Fall and ESRD LACE Strata: 3 PCP: Geremias Specialists: Em (Wood Car Builder) Preferred Pharmacy: [facility] Insurance: [facility], [facility] Prescription Benefit: Yes LNOK: Carlos Chey (H), Sergecarmela Chey (GD) Living Arrangements: Pt lives in an apartment with her with 14 steps to enter the home. Pt states there is one hand rail and the pt has had a hard time using the steps recently. Pt is wanting to get stronger prior to returning home to help manage the steps. ADLs/IADLs: Ind with ADLs. helps with IADLs Transportation: Pt drives. Pt does most of the driving. DME: Pt uses a rollator at home. Pt has a cane. Pt has a shower chair. Pt has a raised toilet seat but does not use. Pt checks her BS and states having enough supplies. 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 HHC/SNF: Denies history ESRD: Pt receives HD M/W/F at 0600 at [facility] in [place]. Pt?s goal: Gain enough strength to DC home with her . Plan: Pt 6 click = 13. Pt states she did not do well with therapy and is concerned about going back home d/t the steps to enter the home. Pt states that a doctor in the ED said something to the pt about the RU here. Pt states that she would like to go there after being DC from this floor. Will update SW and continue to monitor. Alberto Sanchez RN, CM
--- NOTE | 2023-03-25 14:21 | CASEMGMT ---
Discharge Planning A list of SNF providers including quality and resource use data and consistent with the patient's preferred geographic region, medical needs, and insurance network was created in [employer].? This list was provided to the SW. Julieta Marquis Discharge Planning Asst.
[2023-03-25 14:29] LABS: Pathologist Review Reviewed
--- NOTE | 2023-03-25 15:34 | CASEMGMT ---
Social Work - Discharge Planning Received handoff from NIEVES Issa regarding patient's wish to go to SNF, short term at discharge. Patient has 14 step into home, which is a concern with patient's current functional status. Noted therapy evaluation, and patient able to walk 3 feet with min assist of one today. Met with patient and provided SNF list, printed from [facility] including geographical region, Medicare star and quality data. Reviewed list with patient, as well as area SNF that has in house dialysis. Patient agrees to look at the list, and will have 3 choices for social work by the morning of 03.26.23. Patient reports one concerns about eventual home going is the need for a lift chair, as only has a recliner. Explored whether patient has [facility] guest services manager and services, which patient denies. Educated patient that a referral could be made from the [facility] for an assessment with [facility], to see if patient would qualify for any other supportive services upon returning home. Discussed that once it is known where patient is going, then can let the [facility] SW know of this desire to have a LTC assessment with [facility]. Plan: SW to follow up on 03.26.23 for SNF choices. -MALORIE Quinteros
--- NOTE | 2023-03-25 16:06 | CHAPLAIN ---
Type of Pastoral Visit _x__ Initial Visit ___ Follow-up Visit ___ On-call Visit ___ General Patient Visit ___ Spiritual Assessment ___ Family Conference ___ Bereavement ___ Rapid Response ___ Code Blue ___ Other (describe below) Pastoral Care Referral From _x__ Patient ___ Family ___ Nurse ___ Physician ___ Data Analytics Chief Scientist ___ Director Of Enterprise Applications ___ Other (describe below) Sacrament/Intervention _x__ Active listening ___ Anointing ___ Jewish ___ Bereavement ___ Communion ___ Deonna exploration ___ ___ Life review _x__ Prayer ___ Reconciliation ___ Sacrament of Sick ___ Supportive presence ___ Wedding ___ Other (describe below) Pastoral Comments patient is receiving dialysis at this time; pt states that she mostly would need a prayer; pt gives some history of her health and reveals four cancers and other problems that she has come through; this fact is cause for more discussion about perseverance and hope
[2023-03-25 16:30] LABS: Bedside Glucose 106 mg/dL (74-106)
[2023-03-25] MEDS: Pramipexole Di-HCl 0.25 MG Tablet PO ×2 (17:03→20:58)
[2023-03-25] MEDS: Lactulose 20 GM/30 ML UDC 10 GM PO (17:08)
[2023-03-25] MEDS: 0.9% Saline Lock 10 ML Syringe IV (17:09)
[2023-03-25 17:22] LABS: Bedside Glucose 100 mg/dL (74-106)
[2023-03-25] MEDS: traZODone 100 MG Tablet 200 MG PO (20:57)
[2023-03-25] MEDS: Atorvastatin Calcium 40 MG Tablet PO (20:58)
[2023-03-25] MEDS: Baclofen 10 MG Tablet 5 MG PO (20:58)
[2023-03-25] MEDS: MELATONIN 10 MG TABLET PO (20:58)
[2023-03-25] MEDS: Gabapentin 100 MG Capsule 200 MG PO (20:59)
[2023-03-25] MEDS: rifAXIMin 550 MG Tablet PO (21:00)
[2023-03-25 23:23] LABS: Bedside Glucose 157 mg/dL (74-106)
--- NOTE | 2023-03-25 23:50 | NURSING ---
Other fish hatchery superintendent and I were assisting patient from bed to bedside commode. Patients left knee went out and we lowered her to the floor beside the bed. Staff assist was called. Patient states that Therapy worked me so hard that my knee is sore.
[2023-03-26 04:03] VITALS: BP 144/54; PULSE 87; RESP 18; TEMP 37; O2SAT 94
[2023-03-26] MEDS: HYDROcodone Bitartrate/Apap 5/325 Tablet PO ×2 (04:19→15:01)
[2023-03-26] MEDS: Lactulose 20 GM/30 ML UDC 10 GM PO ×3 (04:20→23:18)
[2023-03-26] MEDS: Levothyroxine 88 MCG Tablet PO (04:20)
[2023-03-26] MEDS: Pramipexole Di-HCl 0.25 MG Tablet 0.75 MG PO (04:20)
[2023-03-26] MEDS: Sucralfate 1 GM Tablet PO ×2 (04:21→15:03)
[2023-03-26 08:05] LABS: Absolute Lymphocyte Count 0.79 X10^3/uL (0.83-4.51); Absolute Neutrophil Count 3.1 X10^3/uL (2.0-7.7); Basophil# 0.01 X10^3/uL; Basophil% 0.2 % (0-1); Eosinophil# 0.11 X10^3/uL; Eosinophils% 2.5 % (0-5); Hematocrit 28.8 % (37-47); Hemoglobin 8.7 g/dL (12.0-15.0); Lymphocyte # 0.79 X10^3/ul (0.83-4.51); Lymphocyte % 18.1 % (19-41); Mean Corp Hgb Conc 30.2 g/dL (32-36); Mean Corpuscular Volume 99.3 fL (81-99); Mean Platelet Vol. 11.3 fl (6.2-12.0); Monocyte# 0.34 X10^3/uL; Monocyte% 7.8 % (0-10); NRBC Flagged by Analyzer 0 % (0-5); Neutrophil # 3.08 X10^3/uL (2.7-7.7); Neutrophil % 70.5 % (47-70); POSITIVE MORPHOLOGY YES; Platelet Count 101 K/mm3 (150-450); RBC Distribution Width CV 20.2 % (11.6-14.6); White Blood Count 4.4 K/mm3 (4.4-11.0)
[2023-03-26 08:08] LABS: Differential Indicated SCAN CRITERIA MET
[2023-03-26 08:33] LABS: Anion Gap 6 (5-15); BUN 36 mg/dL (7-18); BUN/Creat Ratio 5.8 RATIO (10-20); Calcium,Total 9.2 mg/dL (8.5-10.1); Chloride 101 mmol/L (98-107); Creatinine, Serum 6.25 mg/dL (0.55-1.02); EST Glomerular Filtration Rate 7 mL/min (>60); Est Glom Filt Rate - Afr Amer 9 mL/min (>60); Estimated Creatinine Clearance 11.09 ml/min; Glucose 108 mg/dL (74-106); Magnesium 2.7 mg/dL (1.6-2.6); Potassium 4.3 mmol/L (3.5-5.1); Sodium Level 135 mmol/L (136-145)
[2023-03-26 08:39] LABS: Anisocytosis 3+
[2023-03-26 09:18] VITALS: BP 138/69; PULSE 83; RESP 14; TEMP 37.2; O2SAT 95
[2023-03-26] MEDS: SEVELAMER CARBONATE 800 MG TABLET 1600 MG PO ×3 (09:24→17:39)
[2023-03-26] MEDS: Pantoprazole Sodium 40 MG Tablet PO ×2 (09:25→23:19)
[2023-03-26] MEDS: Aspirin E.C. 81 MG Tablet PO (09:25)
[2023-03-26] MEDS: Carvedilol 12.5 MG Tablet PO ×2 (09:25→17:39)
[2023-03-26] MEDS: Vitamin B Comp W-C Capsule 1 CAP PO (09:25)
[2023-03-26] MEDS: Tacrolimus 0.5 MG Capsule PO ×2 (09:26→23:20)
[2023-03-26] MEDS: Furosemide 40 MG Tablet 60 MG PO (09:26)
[2023-03-26] MEDS: Cholecalciferol (VIT D3) 25 MCG TABLET (1,000 UNITS) PO ×2 (09:27→23:21)
[2023-03-26] MEDS: Omega-3 Acid Ethyl Esters 1 GM Capsule PO (09:27)
[2023-03-26] MEDS: Sertraline 50 MG Tablet PO (09:27)
[2023-03-26] MEDS: rifAXIMin 550 MG Tablet PO ×2 (09:27→23:19)
[2023-03-26 10:32] LABS: Bedside Glucose 114 mg/dL (74-106)
--- NOTE | 2023-03-26 10:35 | RAD_ITS ---
STUDY: X-RAY - LEFT KNEE REASON FOR EXAM: Female, 67 years old. Fall and lateral knee swelling TECHNIQUE: 3 view(s) of the knee. COMPARISON: Comparison is made with prior study dated September 22, 2023. FINDINGS: Normal visualized distal femur. There is a 1.3 cm x 1.3 cm geode in the medial tibial plateau. Normal proximal tibiofibular articulation. There is severe degenerative arthrosis of the medial femorotibial compartment with severe joint space narrowing. Normal lateral femorotibial compartment. There is severe degenerative arthrosis of the patellofemoral articulation. Chondrocalcinosis of the medial and lateral menisci. Small joint effusion. RAD/Knee 3 Views IMPRESSION: Degenerative arthrosis. Electronically Signed: Naren Boston MD at 15:09 EST ,
--- NOTE | 2023-03-26 10:59 | CASEMGMT ---
Addendum entered by Jimena Zepeda 03/26/23 13:45: updated pt [facility] can accept and requesting pt to provide two home medications. pt agreed and [facility] is F[facility]. precert has been started by [facility]. Addendum entered by Julieta Marquis 03/26/23 12:57: [facility] has accepted referral and patient would like to move forward with them. Precert will be submitted. [facility] and [facility] updated. Julieta Marquis, Discharge Planning Asst. Original Note: Discharge Planning Referral sent to [facility], [facility], and [facility]. Julieta Marquis, Discharge Planning Asst.
--- NOTE | 2023-03-26 12:10 | PN.RENAL_ITS ---
Subjective Subjective From again this morning. Fell on the left knee. Appears to have a bruise over the left knee and left waite. x-ray is pending. Objective Data Objective Data Vital Signs: Vital Signs Temp Pulse Resp BP Pulse Ox O2 Del Method 98.9 F 83 14 138/69 H 95 Room Air 03/26/23 09:18 03/26/23 09:18 03/26/23 09:18 03/26/23 09:18 03/26/23 09:18 03/26/23 09:18 Oxygen Delivery Method Room Air Weight: 110.2 kg Body Mass Index (BMI) 40.4 Intake & Output: Intake and Output for Last 24 Hours 03/24/23 03/25/23 03/26/23 23:59 23:59 23:59 Intake Total 500 / 640 280 / 280 Balance 500 / 640 280 / 280 Lab / Micro Data 03/26/23 07:39 03/26/23 07:39 Labs: Laboratory Results - last 24 hr 03/24/23 21:03: Diff Path Review Reviewed 03/25/23 11:49: POC Glucose 106 03/25/23 17:01: POC Glucose 100 03/25/23 20:44: POC Glucose 157 H 03/26/23 07:39: WBC 4.4, RBC 2.90 L, Hgb 8.7 L, Hct 28.8 L, MCV 99.3 H, MCH 30.0, MCHC 30.2 L, RDW Std Deviation 74.0 H, RDW Coeff of Tami 20.2 H, Plt Count 101 L, MPV 11.3, Immature Gran % (Auto) 0.900, Neut % (Auto) 70.5 H, Lymph % (Auto) 18.1 L, [place] % (Auto) 7.8, Eos % (Auto) 2.5, Baso % (Auto) 0.2, Absolute Neuts (auto) 3.1, Absolute Lymphs (auto) 0.79 L, Nucleated RBC % 0, Anisocytosis 3+, Sodium 135 L, Potassium 4.3, Chloride 101, Carbon Dioxide 28.0, Anion Gap 6, BUN 36 H, Creatinine 6.25 H, Estim Creat Clear Calc 11.09, Est GFR (MDRD) Af Amer 9 L, Est GFR (MDRD) Non-Af 7 L, BUN/Creatinine Ratio 5.8 L, Glucose 108 H, Hemoglobin A1c 5.0, Calcium 9.2, Magnesium 2.7 H 03/26/23 09:23: POC Glucose 114 H Micro: Microbiology 03/24/23 22:14 Urine, Catheterized Urine Culture - Preliminary Mixed Gram Positive Organisms 03/24/23 20:55 Mucosa - Nose SARS-CoV-2, Influenza & RSV (PCR) - Final Rhythm Strip Rhythm Strip: Sinus Rhythm Rate: 82 Ectopy: None Physical Exam Narrative Alert awake oriented x 3 Complains of pain no pallor no icterus no JVD s1s2 no murmurs lungs clear abdomen soft no organomegaly no edema no cyanosis Assessment & Plan Assessment/Plan (1) End stage renal disease on dialysis: PLAN: On hemodialysis Saturday, Saturday, Saturday schedule. Will continue dialysis as per schedule Hypotension. Blood pressure was okay on admission. Bruise over the left knee. She is able to move the leg but quite tender and touching. X-rays pending
[2023-03-26] MEDS: Insulin Glargine-YFGN 100 UNIT/ML Pen 24 UNIT SC ×2 (12:14→23:28)
[2023-03-26 12:36] LABS: Bedside Glucose 152 mg/dL (74-106)
[2023-03-26 13:49] VITALS: BP 119/51; PULSE 75; RESP 18; TEMP 36.6; O2SAT 99
[2023-03-26] MEDS: Pramipexole Di-HCl 0.25 MG Tablet PO ×2 (14:26→23:20)
--- NOTE | 2023-03-26 14:44 | CASEMGMT ---
Social Work [facility] notified that precert has been approved through 03/28. updated Dr. Maurer. pt is too painful to DC today. Will follow up tomorrow. SW updated [facility]. Pt updated. 7000 started. SW will continue to follow. Plan: DC to [facility], skilled, precert approved, pending medically ready VICKIE Ash
[2023-03-26 14:50] VITALS: BP 119/51; PULSE 75; RESP 18; TEMP 36.6; O2SAT 99
--- NOTE | 2023-03-26 15:52 | PN.HOSP_ITS ---
Reason for Visit Reason for Visit: Diagnoses End stage renal disease (03/25/23) Urinary tract infection, site not specified (03/25/23) Difficulty in walking, not elsewhere classified (03/25/23) Repeated falls (03/25/23) Liver transplant status (03/25/23) Dependence on renal dialysis (03/25/23) Objective Data Objective Data Vital Signs: Vital Signs Temp Pulse Resp BP Pulse Ox O2 Del Method 98 F 75 18 119/51 L 99 Room Air 03/26/23 14:50 03/26/23 14:50 03/26/23 14:50 03/26/23 14:50 03/26/23 14:50 03/26/23 14:50 Oxygen Delivery Method Room Air Weight: 242 lb 15.19 oz Body Mass Index (BMI) 40.4 Intake & Output: Intake and Output for Last 24 Hours 03/24/23 03/25/23 03/26/23 23:59 23:59 23:59 Intake Total 500 / 640 880 / 880 Balance 500 / 640 880 / 880 Lab / Micro Data 03/26/23 07:39 03/26/23 07:39 Labs: Laboratory Results - last 24 hr 03/25/23 11:49: POC Glucose 106 03/25/23 17:01: POC Glucose 100 03/25/23 20:44: POC Glucose 157 H 03/26/23 07:39: WBC 4.4, RBC 2.90 L, Hgb 8.7 L, Hct 28.8 L, MCV 99.3 H, MCH 30.0, MCHC 30.2 L, RDW Std Deviation 74.0 H, RDW Coeff of Tami 20.2 H, Plt Count 101 L, MPV 11.3, Immature Gran % (Auto) 0.900, Neut % (Auto) 70.5 H, Lymph % (Auto) 18.1 L, [place] % (Auto) 7.8, Eos % (Auto) 2.5, Baso % (Auto) 0.2, Absolute Neuts (auto) 3.1, Absolute Lymphs (auto) 0.79 L, Nucleated RBC % 0, Anisocytosis 3+, Sodium 135 L, Potassium 4.3, Chloride 101, Carbon Dioxide 28.0, Anion Gap 6, BUN 36 H, Creatinine 6.25 H, Estim Creat Clear Calc 11.09, Est GFR (MDRD) Af Amer 9 L, Est GFR (MDRD) Non-Af 7 L, BUN/Creatinine Ratio 5.8 L, Glucose 108 H, Hemoglobin A1c 5.0, Calcium 9.2, Magnesium 2.7 H 03/26/23 09:23: POC Glucose 114 H 03/26/23 12:13: POC Glucose 152 H Micro: Microbiology 03/24/23 22:14 Urine, Catheterized Urine Culture - Preliminary Mixed Gram Positive Organisms 03/24/23 20:55 Mucosa - Nose SARS-CoV-2, Influenza & RSV (PCR) - Final Radiography Diagnostic Testing: Radiology Impression Knee X-Ray 03/26/23 10:35 IMPRESSION: Degenerative arthrosis. Electronically Signed: Naren Boston MD at 15:09 EST , Rhythm Strip Rhythm Strip: Sinus Rhythm Rate: 82 Ectopy: None Physical Exam Narrative Seen and examined. Overnight events noted. Patient again fell down last night on her left knee. Her left knee is more tender along with swelling on the lateral aspect. Left knee x-ray ordered. No fever. No LOC. She has gait instability and problem in balance and admitted after a fall. General: Alert, Oriented x3, Cooperative HEENT: Atraumatic, PERRLA, EOMI, Normocephalic Oral: No Gingival or Mucosal Lesions/ Ulcerations Neck: Supple, No JVD, Negative Carotid Bruits Lungs: Air entry diminished in bilateral lung bases. No crepitation/rhonchi Cardiovascular: Regular rate, Regular Rhythm, Normal S1, Normal S2, LUSB murmur. Abdomen: Status post OLT bowel Sounds Present, Soft, Non Tender, Non-Distended : On hemodialysis. No renal angle tenderness. No suprapubic tenderness. Extremities: No edema, Capillary Refill Less than 3 Seconds Skin: No rashes, No breakdown Musculoskeletal: Tenderness all around the left knee predominantly over lateral aspect. Mild swelling on the left knee seems reactive edema. Bruise on the left knee. Neurological: Cranial nerves II-XII grossly intact, DTR 2+/4. No acute focal neurological deficit. Psych/Mental Status: Flat affect. Assessment & Plan Assessment/Plan (1) Acute UTI: (2) Multiple falls: (3) Unable to ambulate: (4) End stage renal disease on dialysis: (5) History of liver transplant: PLAN: Plan 67-year-old female with multiple comorbidities admitted with generalized weakness and a fall. She had 2 falls on the day of admission states, her legs gave out. Left knee buckled and she has bruise on that. She also had soft tissue injury on her right ankle with numbness and diffuse pain. SARS-CoV-2 influenza and RSV PCR negative. 1. Acute cystitis; without hematuria - Continue IV Levaquin begun in the ER given patient's allergy profile and await culture and sensitivity data. 03/26: Urine culture shows mixed gram-positive organism therefore will discontinue antibiotic. 2. Multiple falls at home with imaging negative for acute fracture in the setting of morbid obesity; with BMI of 41.1 Place on fall precautions and give Tylenol prn for [id number] (level 1-5) pain or fever. 03/26: Patient again fell down yesterday night. Left knee x-ray shows degenerative arthritis. Repeat x-ray individually reviewed. No fracture. Pain control PT and OT. 3. Generalized weakness with ambulatory dysfunction - PT/OT and Central Office Equipment Installer to consult and treat on-rounds in the AM with help appreciated in advance as she will likely need some degree of rehabilitation. 4. ESRD on HD; (M-W-) - consult nephrology so that her HD can be continued. She is undergoing kidney transplant evaluation in [facility]. 5. History of HOFFMAN with Cirrhosis; s/p liver transplant (~2006) -She is on tacrolimus 0.5 mg twice daily. This is being followed by city wellness coordinator, Poli Snyder. She denies any change in mental status but attributes her fall to gait instability. Lactulose and Xifaxan ordered. 6. Chronic thrombocytopenia (62-112) - Platelet level of 80 noted on admission. Check daily CBC to ensure continued stability. 7. History of chronic diastolic CHF; with preserved LVEF - Stable. Continue home medications as previous. 8. Essential hypertension - Continue home medications as previous. 8. Hyperlipidemia - Resume statin. 9. DM-2; of unknown control - ADA diet. FSBS q. AC/HS plus SSI. 03/26: A1c 5.0. 10. History of DFU - Noted. 11. History of uterine and cervical cancer - Noted. 12. Psoriasis - Stable with no evidence of flare. 13. RLS - Continue Ropinirole. 14. CARSON - Stable. 15. OA - Give Tylenol prn. 16. DVT prophylaxis - SCD's only with thrombocytopenia of 80 present on admission contraindicating treatment with heparin or heparinoids. Microbiology Past 72 Hours 03/24/23 22:14 Urine, Catheterized Urine Culture - Preliminary Mixed Gram Positive Organisms 03/24/23 20:55 Mucosa - Nose SARS-CoV-2, Influenza & RSV (PCR) - Final Laboratory Results 03/25/23 11:49: POC Glucose 106 03/25/23 17:01: POC Glucose 100 03/25/23 20:44: POC Glucose 157 H 03/26/23 07:39: WBC 4.4, RBC 2.90 L, Hgb 8.7 L, Hct 28.8 L, MCV 99.3 H, MCH 30.0, MCHC 30.2 L, RDW Std Deviation 74.0 H, RDW Coeff of Tami 20.2 H, Plt Count 101 L, MPV 11.3, Immature Gran % (Auto) 0.900, Neut % (Auto) 70.5 H, Lymph % (Auto) 18.1 L, [place] % (Auto) 7.8, Eos % (Auto) 2.5, Baso % (Auto) 0.2, Absolute Neuts (auto) 3.1, Absolute Lymphs (auto) 0.79 L, Nucleated RBC % 0, Anisocytosis 3+, Sodium 135 L, Potassium 4.3, Chloride 101, Carbon Dioxide 28.0, Anion Gap 6, BUN 36 H, Creatinine 6.25 H, Estim Creat Clear Calc 11.09, Est GFR (MDRD) Af Amer 9 L, Est GFR (MDRD) Non-Af 7 L, BUN/Creatinine Ratio 5.8 L, Glucose 108 H, Hemoglobin A1c 5.0, Calcium 9.2, Magnesium 2.7 H 03/26/23 09:23: POC Glucose 114 H 03/26/23 12:13: POC Glucose 152 H Knee X-Ray 03/26/23 10:35 IMPRESSION: Degenerative arthrosis. Charges/Coding Visit Charges Inpatient E&M: 44917 Subs Hosp L2
[2023-03-26] MEDS: Insulin Lispro 100 UNIT/ML INSULN.PEN 6 UNIT SC (17:40)
[2023-03-26 18:04] LABS: Bedside Glucose 179 mg/dL (74-106)
[2023-03-26 22:50] VITALS: O2SAT 85
[2023-03-26 22:55] VITALS: BP 121/47; PULSE 71; RESP 20; TEMP 36.9; O2SAT 93
[2023-03-26] MEDS: traZODone 100 MG Tablet 200 MG PO (23:18)
[2023-03-26] MEDS: MELATONIN 10 MG TABLET PO (23:19)
[2023-03-26] MEDS: Baclofen 10 MG Tablet 5 MG PO (23:22)
[2023-03-26] MEDS: levoFLOXacin IV 250 MG/50 ML BAG 50 MG IV (23:22)
[2023-03-26] MEDS: Atorvastatin Calcium 40 MG Tablet PO (23:23)
[2023-03-26] MEDS: Gabapentin 100 MG Capsule 200 MG PO (23:34)
[2023-03-26] MEDS: 0.9% Saline Lock 10 ML Syringe IV (23:47)
[2023-03-26 23:55] LABS: Bedside Glucose 111 mg/dL (74-106)
[2023-03-27] VITALS (13 sets, daily range): BP systolic 111–240; BP diastolic 47–65; PULSE 64–74; RESP 13–20; TEMP 36.5–37.3; O2SAT 97–99; BMI 40.4; BMI 39.6
[2023-03-27] MEDS: 0.9% Saline Lock 10 ML Syringe IV (02:09)
[2023-03-27] MEDS: Pramipexole Di-HCl 0.25 MG Tablet 0.75 MG PO (06:35)
[2023-03-27] MEDS: Levothyroxine 88 MCG Tablet PO (06:35)
[2023-03-27] MEDS: Lactulose 20 GM/30 ML UDC 10 GM PO (06:35)
[2023-03-27] MEDS: Sucralfate 1 GM Tablet PO (06:39)
[2023-03-27 07:55] LABS: Absolute Lymphocyte Count 0.67 X10^3/uL (0.83-4.51); Absolute Neutrophil Count 2.5 X10^3/uL (2.0-7.7); Basophil# 0.01 X10^3/uL; Basophil% 0.3 % (0-1); Eosinophil# 0.11 X10^3/uL; Hemoglobin 8.5 g/dL (12.0-15.0); Lymphocyte # 0.67 X10^3/ul (0.83-4.51); Lymphocyte % 18.4 % (19-41); Mean Corp Hgb Conc 29.3 g/dL (32-36); Mean Corpuscular Hgb 29.6 pg (27.0-32.0); Mean Platelet Vol. 11.2 fl (6.2-12.0); Monocyte# 0.31 X10^3/uL; Monocyte% 8.5 % (0-10); NRBC Flagged by Analyzer 0 % (0-5); Neutrophil # 2.53 X10^3/uL (2.7-7.7); Neutrophil % 69.3 % (47-70); POSITIVE MORPHOLOGY YES; Platelet Count 100 K/mm3 (150-450); RBC Distribution Width CV 20.2 % (11.6-14.6); RBC Distribution Width SD 75.1 fl (35.1-43.9); Red Blood Count 2.87 M/mm3 (4.2-5.4); White Blood Count 3.7 K/mm3 (4.4-11.0)
[2023-03-27] MEDS: HYDROcodone Bitartrate/Apap 5/325 Tablet PO (08:02)
[2023-03-27] MEDS: 0.9% Normal Saline 1,000 ML IV.SOLN. 1000 ML OPERA.SITE (08:04)
[2023-03-27] MEDS: PureFlow B 2K Dialysis Soln 1 BAG 6 BAG PF (08:04)
[2023-03-27 08:06] LABS: Differential Indicated SCAN CRITERIA MET
--- NOTE | 2023-03-27 08:40 | PCM.DC ---
Discharge Instructions Follow Up Care Test Results: Test results from this visit will be discussed in further detail at your follow-up appointment, if applicable. Discharge Plan Admission Admit Date/Time: 03/25/23 00:02 Attending Provider: Jignesh Maurer Primary Care Provider: Velia Archuleat Consulting Providers: Barrett Strickland; Jag Everett Discharge Orders/Prescriptions Prescriptions: No Action hydroxyzine HCl 25 mg tablet 25 mg PO BID PRN (Reason: Itching) pantoprazole 40 mg tablet,delayed release (DR/EC) 40 mg PO BID Qty: 60 2RF atorvastatin 40 mg tablet 40 mg PO QHS Qty: 30 0RF Rx Instructions: Start after 1 week because patient having dysphagia now. bisacodyl [Dulcolax (bisacodyl)] 10 mg suppository 10 mg [place] DAILY PRN (Reason: constipation) Qty: 30 0RF ascorbic acid (vitamin C) 500 MG tablet,chewable 1,000 mg PO DAILY Patient Comments: supplement cholecalciferol (vitamin D3) 1,000 UNIT tablet 1,000 unit PO BID Patient Comments: bone health insulin glargine [Lantus Solostar U-100 Insulin] 100 UNIT/ML insulin pen 34 unit subcut BID Hold Instructions: until follow up with pcp your blood sugars have been low while in hospital ropinirole 1 mg tablet 1 mg PO DAILY tacrolimus [Prograf] 1 MG capsule 0.5 mg PO BID vitamin B complex 1 EACH tablet 1 tablet PO DAILY torsemide 20 mg tablet 60 mg PO DAILY carvedilol 25 MG tablet 12.5 mg PO BID sevelamer carbonate [Renvela] 800 MG tablet 1,600 mg PO .TID AC ropinirole 2 MG tablet extended release 24 hr 2 mg PO QHS nitroglycerin 0.4 mg Tablet, Sublingual 0.4 mg sublingual Q5M PRN (Reason: Cardiac/Chest Pain) Qty: 30 0RF sertraline [Zoloft] 50 MG tablet 50 mg PO DAILY Patient Comments: depression biotin 1 mg Capsule 1 mg PO BID melatonin 3 mg Tablet 10 mg PO QHS albuterol sulfate 1 PUFF inhaler 2 puff IH Q4H PRN PRN (Reason: Sob &/Or Wheezing) 30 Days Qty: 8.6 0RF hydrocodone-acetaminophen [hydrocodone-acetaminophen] 1 TABLET tablet 1 tab PO Q6H PRN PRN (Reason: Pain) 3 Days Qty: 10 0RF Otezla 30 mg tablet 30 mg PO DAILY insulin aspart U-100 [Novolog FlexPen U-100 Insulin] 100 unit/mL (3 mL) insulin pen 10 unit subcut TID levothyroxine 88 mcg tablet 88 mcg PO DAILY trazodone 100 mg tablet 200 mg PO QHS gabapentin 100 mg capsule 200 mg PO QHS Patient Comments: TAKE 2 CAPSULES BY MOUTH AT BEDTIME midodrine 10 mg tablet 10 mg PO MOWEFR Patient Comments: TAKE 1 TABLET BY MOUTH THREE DAYS (TIMES) A WEEK ON MON, SAT & SAT BEFORE DIALYSIS sucralfate [Carafate] 1 gram tablet 1 g PO BID Qty: 30 0RF omega 1-dpo-tgy-fish oil [Fish Oil] 1,200 (144-216) mg capsule 1 cap PO DAILY Patient Comments: LAST DOSE 01/26 aspirin [Adult Aspirin Regimen] 81 mg tablet,delayed release (DR/EC) 81 mg PO DAILY Patient Comments: LAST DOSE 01/26 diphenoxylate-atropine [Lomotil] 2.5-0.025 mg tablet 1 tab PO TID PRN (Reason: diarrhea) Qty: 90 2RF baclofen 5 mg tablet 5 mg PO QHS Qty: 30 1RF Referrals / Follow Up: Velia Archuleta MD [Primary Care Provider] - Disposition Disposition (needs filled in before D/C Order can be placed): Long Term Facility
--- NOTE | 2023-03-27 08:43 | PCM.TXEXTCAR ---
Diet Diet Order/Speech Therapy: 03/25/23 15:35 Diet: Renal - ConsCHO - Nishant Cont Dietary Modifications:: Cardiac / Heart Healthy Type of Dietary Supplement:: 4 oz nepro bid Is pt able to select menu?: Yes Diet Comments: NO PROTEIN RESTRICTION How many daily calories?: 1800 calorie Routine Orders/Code Status Suppository Type: Dulcolax 10mg Suppository Frequency: Daily PRN Wound(s) left knee: Wound Type: Abrasion L forearm: Wound Type: Abrasion R hip: Wound Type: Skin Tear Therapies Weight Bearing: Weight bearing as tolerated Extremity Affected:: Bilateral Lower Physical Therapy: Eval and Treat Occupational Therapy: Eval and Treat Speech Therapy: Eval and Treat Problem/Diagnosis (1) Acute UTI: Status: Acute Code(s): N39.0 - Urinary tract infection, site not specified (2) Multiple falls: Status: Acute Code(s): R29.6 - Repeated falls (3) Unable to ambulate: Status: Acute Code(s): R26.2 - Difficulty in walking, not elsewhere classified (4) End stage renal disease on dialysis: Status: Acute Code(s): N18.6 - End stage renal disease; Z99.2 - Dependence on renal dialysis (5) History of liver transplant: Status: Acute Code(s): Z94.4 - Liver transplant status Plan 67-year-old female with multiple comorbidities admitted with generalized weakness and a fall. She had 2 falls on the day of admission states, her legs gave out. Left knee buckled and she has bruise on that. She also had soft tissue injury on her right ankle with numbness and diffuse pain. SARS-CoV-2 influenza and RSV PCR negative. 1. Mild hematuria - Continue IV Levaquin begun in the ER given patient's allergy profile and await culture and sensitivity data. 03/26: Urine culture shows mixed gram-positive organism therefore will discontinue antibiotic. Urine culture prelim reported alphahemolytic organism 80,000 200,000 and alphahemolytic organism to more than 8000. Patient does not have much urine output. UTI ruled out. Hematuria resolved. Patient had antibiotic, Levaquin empirically at time of admission. 2. Multiple falls at home with imaging negative for acute fracture in the setting of morbid obesity; with BMI of 41.1 Place on fall precautions and give Tylenol prn for [id number] (level 1-5) pain or fever. 03/26: Patient again fell down yesterday night. Left knee x-ray shows degenerative arthritis. Repeat x-ray individually reviewed. No fracture. Pain control PT and OT. 03/27: Patient leg swelling especially in left knee is better. Patient is mildly drowsy with pain medications. Titrate down her pain medication. Patient approved for going to subacute rehab. 3. Generalized weakness with ambulatory dysfunction - PT/OT and Fleet Maintenance Manager to consult and treat on-rounds in the AM with help appreciated in advance as she will likely need some degree of rehabilitation. 4. ESRD on HD; (M-W-F) - consult nephrology so that her HD can be continued. She is undergoing kidney transplant evaluation in [facility]. 03/27: Undergoing hemodialysis. 5. History of HOFFMAN with Cirrhosis; s/p liver transplant (~2006) -She is on tacrolimus 0.5 mg twice daily. This is being followed by patient coordinator, Poli Snyder. She denies any change in mental status but attributes her fall to gait instability. Lactulose and Xifaxan ordered. 6. Chronic thrombocytopenia (62-112) - Platelet level of 80 noted on admission. Check daily CBC to ensure continued stability. 7. History of chronic diastolic CHF; with preserved LVEF - Stable. Continue home medications as previous. 8. Essential hypertension - Continue home medications as previous. 8. Hyperlipidemia - Resume statin. 9. DM-2; of unknown control - ADA diet. FSBS q. AC/HS plus SSI. 03/26: A1c 5.0. 10. History of DFU - Noted. 11. History of uterine and cervical cancer - Noted. 12. Psoriasis - Stable with no evidence of flare. 13. RLS - Continue Ropinirole. 14. CARSON - Stable. 15. OA - Give Tylenol prn. 16. DVT prophylaxis - SCD's only with thrombocytopenia of 80 present on admission contraindicating treatment with heparin or heparinoids. Discharge medication reconciliation done. Discharge follow-up instructions completed. Discharge process discussed with the patient and all questions were answered to patient's satisfaction. Follow with PCP in 1 to 2 weeks Total time spent, exact 35 minutes on discharge meds reconciliation, examination, coordination of care with nurses and ancillary staff, review of imaging and blood test and discussion with the patient on follow-up instructions. Microbiology Past 72 Hours 03/24/23 22:14 Urine, Catheterized Urine Culture - Preliminary Alpha hemolytic organism Alpha hemolytic organism#2 03/24/23 20:55 Mucosa - Nose SARS-CoV-2, Influenza & RSV (PCR) - Final Laboratory Results 03/26/23 12:13: POC Glucose 152 H 03/26/23 17:37: POC Glucose 179 H 03/26/23 23:27: POC Glucose 111 H 03/27/23 06:51: WBC 3.7 L, RBC 2.87 L, Hgb 8.5 L, Hct 29.0 L, MCV 101.0 H, MCH 29.6, MCHC 29.3 L, RDW Std Deviation 75.1 H, RDW Coeff of Tami 20.2 H, Plt Count 100 L, MPV 11.2, Immature Gran % (Auto) 0.500, Neut % (Auto) 69.3, Lymph % (Auto) 18.4 L, [place] % (Auto) 8.5, Eos % (Auto) 3.0, Baso % (Auto) 0.3, Absolute Neuts (auto) 2.5, Absolute Lymphs (auto) 0.67 L, Nucleated RBC % 0, Anisocytosis 1+, Sodium 131 L, Potassium 4.9, Chloride 99, Carbon Dioxide 28.0, Anion Gap 4 L, BUN 52 H, Creatinine 7.66 H*, Estim Creat Clear Calc 9.05, Est GFR (MDRD) Af Amer 7 L, Est GFR (MDRD) Non-Af 6 L, BUN/Creatinine Ratio 6.8 L, Glucose 111 H, Calcium 9.2 Knee X-Ray 03/26/23 10:35 IMPRESSION: Degenerative arthrosis. Allergies/Procedures Done in Hospital Allergies amlodipine [From Norvasc] Allergy (Severe, Verified 03/24/23 20:03) Hives ampicillin sodium [From Unasyn] Allergy (Severe, Verified 03/24/23 20:03) Hives buspirone HCl [From BuSpar] Allergy (Severe, Verified 03/24/23 20:03) Hives cefadroxil [From Duricef] Allergy (Severe, Verified 03/24/23 20:03) Hives lisinopril Allergy (Severe, Verified 03/24/23 20:03) Swelling naproxen Allergy (Severe, Verified 03/24/23 20:03) Hives niacin [From Niaspan Extended-Release] Allergy (Severe, Verified 03/24/23 20:03) Hives sulbactam sodium [From Unasyn] Allergy (Severe, Verified 03/24/23 20:03) Hives Sulfa (Sulfonamide Antibiotics) Allergy (Severe, Verified 03/24/23 20:03) Hives cephalexin [From Keflex] Allergy (Verified 03/24/23 20:03) Vomiting omeprazole Adverse Reaction (Severe, Verified 03/24/23 20:03) Other stage 3 kidney failure UNABLE TO TAKE DUE TO LIVER TRANSPLANT losartan Adverse Reaction (Verified 03/24/23 20:03) Swelling Type of Care/Length of Stay Estimated LOS: Convalescent Care Less Than 30 days Type of Care Needed: Skilled Rehab Potential: Good Prognosis: Good Additional Orders/Day of Discharge Day of Discharge: 03/27/23 Dietary and Speech Recommendations Dietitian Recommendations/Changes: Change diet to 1800 nishant Cardiac / Sodium restricted diet - w/ fluid restriction if indicated by MD Provide 4 oz nepro carb steady bid w/ meals for increase nutrition if consumed. Discharge Plan Admission Admit Date/Time: 03/25/23 00:02 Attending Provider: Jignesh Maurer Primary Care Provider: Velia Archuleta Consulting Providers: Barrett Strickland; Jag Everett Discharge Orders/Prescriptions Prescriptions: Continued hydroxyzine HCl 25 mg tablet 25 mg PO BID PRN (Reason: Itching) pantoprazole 40 mg tablet,delayed release (DR/EC) 40 mg PO BID Qty: 60 2RF atorvastatin 40 mg tablet 40 mg PO QHS Qty: 30 0RF Rx Instructions: Start after 1 week because patient having dysphagia now. bisacodyl [Dulcolax (bisacodyl)] 10 mg suppository 10 mg [place] DAILY PRN (Reason: constipation) Qty: 30 0RF ascorbic acid (vitamin C) 500 MG tablet,chewable 1,000 mg PO DAILY Patient Comments: supplement cholecalciferol (vitamin D3) 1,000 UNIT tablet 1,000 unit PO BID Patient Comments: bone health insulin glargine [Lantus Solostar U-100 Insulin] 100 UNIT/ML insulin pen 34 unit subcut BID Hold Instructions: until follow up with pcp your blood sugars have been low while in hospital ropinirole 1 mg tablet 1 mg PO DAILY tacrolimus [Prograf] 1 MG capsule 0.5 mg PO BID vitamin B complex 1 EACH tablet 1 tablet PO DAILY torsemide 20 mg tablet 60 mg PO DAILY carvedilol 25 MG tablet 12.5 mg PO BID sevelamer carbonate [Renvela] 800 MG tablet 1,600 mg PO .TID AC ropinirole 2 MG tablet extended release 24 hr 2 mg PO QHS nitroglycerin 0.4 mg Tablet, Sublingual 0.4 mg sublingual Q5M PRN (Reason: Cardiac/Chest Pain) Qty: 30 0RF sertraline [Zoloft] 50 MG tablet 50 mg PO DAILY Patient Comments: depression biotin 1 mg Capsule 1 mg PO BID melatonin 3 mg Tablet 10 mg PO QHS albuterol sulfate 1 PUFF inhaler 2 puff IH Q4H PRN PRN (Reason: Sob &/Or Wheezing) 30 Days Qty: 8.6 0RF Otezla 30 mg tablet 30 mg PO DAILY insulin aspart U-100 [Novolog FlexPen U-100 Insulin] 100 unit/mL (3 mL) insulin pen 10 unit subcut TID levothyroxine 88 mcg tablet 88 mcg PO DAILY trazodone 100 mg tablet 200 mg PO QHS gabapentin 100 mg capsule 200 mg PO QHS Patient Comments: TAKE 2 CAPSULES BY MOUTH AT BEDTIME midodrine 10 mg tablet 10 mg PO MOWEFR Patient Comments: TAKE 1 TABLET BY MOUTH THREE DAYS (TIMES) A WEEK ON MON, WED & FRI BEFORE DIALYSIS sucralfate [Carafate] 1 gram tablet 1 g PO BID Qty: 30 0RF omega 3-vyj-ixf-fish oil [Fish Oil] 1,200 (144-216) mg capsule 1 cap PO DAILY Patient Comments: LAST DOSE 01/26 aspirin [Adult Aspirin Regimen] 81 mg tablet,delayed release (DR/EC) 81 mg PO DAILY Patient Comments: LAST DOSE 01/26 hydrocodone-acetaminophen 1 TABLET tablet 1 tab PO Q6H PRN PRN (Reason: Pain) 3 Days Qty: 10 0RF diphenoxylate-atropine [Lomotil] 2.5-0.025 mg tablet 1 tab PO TID PRN (Reason: diarrhea) Qty: 90 2RF Held baclofen 5 mg tablet 5 mg PO QHS Qty: 30 1RF Hold Instructions: Hold for sedation. Referrals / Follow Up: Velia Archuleta MD [Primary Care Provider] - Disposition Disposition (needs filled in before D/C Order can be placed): [facility]
[2023-03-27 08:46] LABS: Anion Gap 4 (5-15); BUN 52 mg/dL (7-18); BUN/Creat Ratio 6.8 RATIO (10-20); Calcium,Total 9.2 mg/dL (8.5-10.1); Chloride 99 mmol/L (98-107); Creatinine, Serum 7.66 mg/dL (0.55-1.02); EST Glomerular Filtration Rate 6 mL/min (>60); Est Glom Filt Rate - Afr Amer 7 mL/min (>60); Estimated Creatinine Clearance 9.05 ml/min; Glucose 111 mg/dL (74-106); Potassium 4.9 mmol/L (3.5-5.1); Sodium Level 131 mmol/L (136-145)
[2023-03-27 08:50] LABS: Anisocytosis 1+
--- NOTE | 2023-03-27 11:03 | PCM.DC.SUM ---
Providers Date of Admission: 03/25/23 Date of Discharge: 03/27/23 Primary Care Physician: Dr. Velia Archuleta MD Consultations 03/25/23 03:50 Consult: Nephrology Routine Consulting Provider: Barrett Strickland Reason for Consult: HD M-W-F EMERGENT Consult: No MD Notified: Yes Date Notified: 03/25/23 Time Notified: 03:50 Method of Notification: Answering Service Comments:: Talked with SYL Osuna Reason For Visit: ACUTE CYSTITIS, FALLS AND ESRD ON HD WITH LIVER Diagnosis Discharge Diagnosis (1) Acute UTI: Status: Acute Code(s): N39.0 - Urinary tract infection, site not specified (2) Multiple falls: Status: Acute Code(s): R29.6 - Repeated falls (3) Unable to ambulate: Status: Acute Code(s): R26.2 - Difficulty in walking, not elsewhere classified (4) End stage renal disease on dialysis: Status: Acute Code(s): N18.6 - End stage renal disease; Z99.2 - Dependence on renal dialysis (5) History of liver transplant: Status: Acute Code(s): Z94.4 - Liver transplant status Plan 67-year-old female with multiple comorbidities admitted with generalized weakness and a fall. She had 2 falls on the day of admission states, her legs gave out. Left knee buckled and she has bruise on that. She also had soft tissue injury on her right ankle with numbness and diffuse pain. SARS-CoV-2 influenza and RSV PCR negative. 1. Mild hematuria - Continue IV Levaquin begun in the ER given patient's allergy profile and await culture and sensitivity data. 03/26: Urine culture shows mixed gram-positive organism 03/27: Urine culture prelim reported alphahemolytic organism 80,000 -100,000 and alphahemolytic organism to more than 100,000. As patient has more than 2 organisms most likely it is contamination/commensal. Patient does not have much urine output. UTI ruled out. Hematuria resolved. Patient had antibiotic, Levaquin empirically at time of admission. Therefore antibiotic discontinued. 2. Multiple falls at home with imaging negative for acute fracture in the setting of morbid obesity; with BMI of 41.1 Place on fall precautions and give Tylenol prn for [id number] (level 1-5) pain or fever. 03/26: Patient again fell down yesterday night. Left knee x-ray shows degenerative arthritis. Repeat x-ray individually reviewed. No fracture. Pain control PT and OT. 03/27: Patient leg swelling especially in left knee is better. Patient is mildly drowsy with pain medications. Titrate down her pain medication. Patient approved for going to subacute rehab. Prescription given for [place]. 3. Generalized weakness with ambulatory dysfunction - PT/OT and Link Trainer to consult and treat on-rounds in the AM with help appreciated in advance as she will likely need some degree of rehabilitation. 4. ESRD on HD; (M-W-F) - consult nephrology so that her HD can be continued. She is undergoing kidney transplant evaluation in [facility]. 03/27: Undergoing hemodialysis. 5. History of HOFFMAN with Cirrhosis; s/p liver transplant (~2006) -She is on tacrolimus 0.5 mg twice daily. This is being followed by cis coordinator, Poli Snyder. She denies any change in mental status but attributes her fall to gait instability. Lactulose and Xifaxan ordered. 6. Chronic thrombocytopenia (62-112) - Platelet level of 80 noted on admission. Check daily CBC to ensure continued stability. 7. History of chronic diastolic CHF; with preserved LVEF - Stable. Continue home medications as previous. 8. Essential hypertension - Continue home medications as previous. 8. Hyperlipidemia - Resume statin. 9. DM-2; of unknown control - ADA diet. FSBS q. AC/HS plus SSI. 03/26: A1c 5.0. 10. History of DFU - Noted. 11. History of uterine and cervical cancer - Noted. 12. Psoriasis - Stable with no evidence of flare. 13. RLS - Continue Ropinirole. 14. CARSON - Stable. 15. OA - Give Tylenol prn. 16. DVT prophylaxis - SCD's only with thrombocytopenia of 80 present on admission contraindicating treatment with heparin or heparinoids. Discharge medication reconciliation done. Discharge follow-up instructions completed. Discharge process discussed with the patient and all questions were answered to patient's satisfaction. Follow with PCP in 1 to 2 weeks Total time spent, exact 35 minutes on discharge meds reconciliation, examination, coordination of care with nurses and ancillary staff, review of imaging and blood test and discussion with the patient on follow-up instructions. Microbiology Past 72 Hours 03/24/23 22:14 Urine, Catheterized Urine Culture - Preliminary Alpha hemolytic organism Alpha hemolytic organism#2 03/24/23 20:55 Mucosa - Nose SARS-CoV-2, Influenza & RSV (PCR) - Final Laboratory Results 03/26/23 12:13: POC Glucose 152 H 03/26/23 17:37: POC Glucose 179 H 03/26/23 23:27: POC Glucose 111 H 03/27/23 06:51: WBC 3.7 L, RBC 2.87 L, Hgb 8.5 L, Hct 29.0 L, MCV 101.0 H, MCH 29.6, MCHC 29.3 L, RDW Std Deviation 75.1 H, RDW Coeff of Tami 20.2 H, Plt Count 100 L, MPV 11.2, Immature Gran % (Auto) 0.500, Neut % (Auto) 69.3, Lymph % (Auto) 18.4 L, [place] % (Auto) 8.5, Eos % (Auto) 3.0, Baso % (Auto) 0.3, Absolute Neuts (auto) 2.5, Absolute Lymphs (auto) 0.67 L, Nucleated RBC % 0, Anisocytosis 1+, Sodium 131 L, Potassium 4.9, Chloride 99, Carbon Dioxide 28.0, Anion Gap 4 L, BUN 52 H, Creatinine 7.66 H*, Estim Creat Clear Calc 9.05, Est GFR (MDRD) Af Amer 7 L, Est GFR (MDRD) Non-Af 6 L, BUN/Creatinine Ratio 6.8 L, Glucose 111 H, Calcium 9.2 Knee X-Ray 03/26/23 10:35 IMPRESSION: Degenerative arthrosis. Medications at Discharge Home Medications ascorbic acid (vitamin C) 500 mg chewable tablet 1,000 mg PO DAILY supplement 02/20/15 cholecalciferol (vitamin D3) 25 mcg (1,000 unit) tablet 1,000 unit PO BID supplement 02/20/15 insulin glargine 100 unit/mL (3 mL) subcutaneous pen (Lantus Solostar U-100 Insulin) 34 unit subcut BID blood sugar 05/29/18 tacrolimus 1 mg capsule, immediate-release (Prograf) 0.5 mg PO BID REJECTION 09/10/19 vitamin B complex 1 tablet PO DAILY SUPPLEMENT 09/10/19 carvedilol 25 mg tablet 12.5 mg PO BID heart 02/25/20 hydroxyzine HCl 25 mg tablet 25 mg PO BID PRN Itching 05/23/20 ropinirole 1 mg tablet 1 mg PO DAILY restless legs 05/23/20 torsemide 20 mg tablet 60 mg PO DAILY FLUID 05/23/20 ropinirole 2 mg tablet,extended release 24 hr 2 mg PO QHS restless legs 06/10/20 sevelamer carbonate 800 mg tablet (Renvela) 1,600 mg PO .TID AC kidney disease 06/10/20 nitroglycerin 0.4 mg sublingual tablet 0.4 mg sublingual Q5M PRN Cardiac/Chest Pain #30 tabs 04/29/21 biotin 1 mg capsule 1 mg PO BID supplement 08/11/21 melatonin 3 mg tablet 10 mg PO QHS sleep 08/11/21 sertraline 50 mg tablet (Zoloft) 50 mg PO DAILY mood 08/11/21 albuterol sulfate 90 mcg/actuation aerosol inhaler 2 puff IH Q4H PRN PRN Sob &/Or Wheezing 30 days #8.6 grams 10/25/21 diphenoxylate-atropine 2.5 mg-0.025 mg tablet (Lomotil) 1 tab PO TID PRN diarrhea #90 tabs 10/27/21 apremilast 30 mg tablet (Otezla) 30 mg PO DAILY 09/08/22 insulin aspart U-100 100 unit/mL (3 mL) subcutaneous pen (Novolog FlexPen U-100 Insulin aspart) 10 unit subcut TID 09/08/22 gabapentin 100 mg capsule 200 mg PO QHS 12/31/22 levothyroxine 88 mcg tablet 88 mcg PO DAILY 12/31/22 midodrine 10 mg tablet 10 mg PO MOWEFR 12/31/22 sucralfate 1 gram tablet (Carafate) 1 g PO BID #30 tabs 12/31/22 trazodone 100 mg tablet 200 mg PO QHS 12/31/22 pantoprazole 40 mg tablet,delayed release 40 mg PO BID #60 tabs 01/08/23 aspirin 81 mg tablet,delayed release (Adult Aspirin Regimen) 81 mg PO DAILY 01/28/23 omega 3-arm-fhl-fish oil 1,200 mg (144 mg-216 mg) capsule (Fish Oil) 1 cap PO DAILY SUPPLEMENT 01/28/23 atorvastatin 40 mg tablet 40 mg PO QHS #30 tabs 02/12/23 bisacodyl 10 mg rectal suppository (Dulcolax (bisacodyl)) 10 mg MD DAILY PRN constipation #30 ea 02/12/23 baclofen 5 mg tablet 5 mg PO QHS #30 tabs 03/18/23 hydrocodone-acetaminophen 5-325mg 5mg-325mg 1 tab PO Q6H PRN PRN Pain 3 days #10 TABLETS 03/27/23 Physical Exam Narrative Seen and examined. Her left knee is better as compared to yesterday with less swelling and pain. Patient is mild lethargy. From pain medication.. No fever. No LOC. She has gait instability and problem in balance and admitted after a fall. General: Awake, answering questions appropriately. Oriented x3, Cooperative HEENT: Atraumatic, PERRLA, EOMI, Normocephalic Oral: No Gingival or Mucosal Lesions/ Ulcerations Neck: Supple, No JVD, Negative Carotid Bruits Lungs: Air entry diminished in bilateral lung bases. No crepitation/rhonchi Cardiovascular: Regular rate, Regular Rhythm, Normal S1, Normal S2, LUSB murmur. Abdomen: Status post OLT bowel Sounds Present, Soft, Non Tender, Non-Distended : On hemodialysis. No renal angle tenderness. No suprapubic tenderness. Extremities: No edema, Capillary Refill Less than 3 Seconds Skin: No rashes, No breakdown Musculoskeletal: Tenderness predominantly over the lateral aspect of left knee. Mild swelling on the left knee seems reactive edema. Bruise on the left knee. Neurological: Cranial nerves II-XII grossly intact, DTR 2+/4. No acute focal neurological deficit. Psych/Mental Status: Flat affect. Weight / BMI Weight Weight: 242 lb 15.19 oz Body Mass Index (BMI) 40.4 ABG / Lab / Microbiology Data 03/27/23 06:51 03/27/23 06:51 Laboratory: Laboratory Results - last 24 hr 03/26/23 12:13: POC Glucose 152 H 03/26/23 17:37: POC Glucose 179 H 03/26/23 23:27: POC Glucose 111 H 03/27/23 06:51: WBC 3.7 L, RBC 2.87 L, Hgb 8.5 L, Hct 29.0 L, MCV 101.0 H, MCH 29.6, MCHC 29.3 L, RDW Std Deviation 75.1 H, RDW Coeff of Tami 20.2 H, Plt Count 100 L, MPV 11.2, Immature Gran % (Auto) 0.500, Neut % (Auto) 69.3, Lymph % (Auto) 18.4 L, [place] % (Auto) 8.5, Eos % (Auto) 3.0, Baso % (Auto) 0.3, Absolute Neuts (auto) 2.5, Absolute Lymphs (auto) 0.67 L, Nucleated RBC % 0, Anisocytosis 1+, Sodium 131 L, Potassium 4.9, Chloride 99, Carbon Dioxide 28.0, Anion Gap 4 L, BUN 52 H, Creatinine 7.66 H*, Estim Creat Clear Calc 9.05, Est GFR (MDRD) Af Amer 7 L, Est GFR (MDRD) Non-Af 6 L, BUN/Creatinine Ratio 6.8 L, Glucose 111 H, Calcium 9.2 Microbiology: Microbiology 03/24/23 22:14 Urine, Catheterized Urine Culture - Preliminary Gram Positive Cocci Alpha hemolytic organism#2 03/24/23 20:55 Mucosa - Nose SARS-CoV-2, Influenza & RSV (PCR) - Final Radiography Diagnostic Testing: Radiology Impression Knee X-Ray 03/26/23 10:35 IMPRESSION: Degenerative arthrosis. Electronically Signed: Naren Boston MD at 15:09 EST Reading Location ID and State: [address] [place] [address] , Service support , Meaningful Use Info Meaningful Use Diagnoses (Choose all that apply): None applicable Discharge Plan Admission Admit Date/Time: 03/25/23 00:02 Attending Provider: Jignesh Maurer Primary Care Provider: Velia Archuleta Consulting Providers: Barrett Strickland; Jag Everett Discharge Orders/Prescriptions Prescriptions: Continued hydroxyzine HCl 25 mg tablet 25 mg PO BID PRN (Reason: Itching) pantoprazole 40 mg tablet,delayed release (DR/EC) 40 mg PO BID Qty: 60 2RF atorvastatin 40 mg tablet 40 mg PO QHS Qty: 30 0RF Rx Instructions: Start after 1 week because patient having dysphagia now. bisacodyl [Dulcolax (bisacodyl)] 10 mg suppository 10 mg MD DAILY PRN (Reason: constipation) Qty: 30 0RF ascorbic acid (vitamin C) 500 MG tablet,chewable 1,000 mg PO DAILY Patient Comments: supplement cholecalciferol (vitamin D3) 1,000 UNIT tablet 1,000 unit PO BID Patient Comments: bone health insulin glargine [Lantus Solostar U-100 Insulin] 100 UNIT/ML insulin pen 34 unit subcut BID Hold Instructions: until follow up with pcp your blood sugars have been low while in hospital ropinirole 1 mg tablet 1 mg PO DAILY tacrolimus [Prograf] 1 MG capsule 0.5 mg PO BID vitamin B complex 1 EACH tablet 1 tablet PO DAILY torsemide 20 mg tablet 60 mg PO DAILY carvedilol 25 MG tablet 12.5 mg PO BID sevelamer carbonate [Renvela] 800 MG tablet 1,600 mg PO .TID AC ropinirole 2 MG tablet extended release 24 hr 2 mg PO QHS nitroglycerin 0.4 mg Tablet, Sublingual 0.4 mg sublingual Q5M PRN (Reason: Cardiac/Chest Pain) Qty: 30 0RF sertraline [Zoloft] 50 MG tablet 50 mg PO DAILY Patient Comments: depression biotin 1 mg Capsule 1 mg PO BID melatonin 3 mg Tablet 10 mg PO QHS albuterol sulfate 1 PUFF inhaler 2 puff IH Q4H PRN PRN (Reason: Sob &/Or Wheezing) 30 Days Qty: 8.6 0RF Otezla 30 mg tablet 30 mg PO DAILY insulin aspart U-100 [Novolog FlexPen U-100 Insulin] 100 unit/mL (3 mL) insulin pen 10 unit subcut TID levothyroxine 88 mcg tablet 88 mcg PO DAILY trazodone 100 mg tablet 200 mg PO QHS gabapentin 100 mg capsule 200 mg PO QHS Patient Comments: TAKE 2 CAPSULES BY MOUTH AT BEDTIME midodrine 10 mg tablet 10 mg PO MOWEFR Patient Comments: TAKE 1 TABLET BY MOUTH THREE DAYS (TIMES) A WEEK ON MON, WED & FRI BEFORE DIALYSIS sucralfate [Carafate] 1 gram tablet 1 g PO BID Qty: 30 0RF omega 9-rwn-wwn-fish oil [Fish Oil] 1,200 (144-216) mg capsule 1 cap PO DAILY Patient Comments: LAST DOSE 01/26 aspirin [Adult Aspirin Regimen] 81 mg tablet,delayed release (DR/EC) 81 mg PO DAILY Patient Comments: LAST DOSE 01/26 hydrocodone-acetaminophen 1 TABLET tablet 1 tab PO Q6H PRN PRN (Reason: Pain) 3 Days Qty: 10 0RF diphenoxylate-atropine [Lomotil] 2.5-0.025 mg tablet 1 tab PO TID PRN (Reason: diarrhea) Qty: 90 2RF Held baclofen 5 mg tablet 5 mg PO QHS Qty: 30 1RF Hold Instructions: Hold for sedation. Referrals / Follow Up: Velia Archuleta MD [Primary Care Provider] - Disposition Disposition (needs filled in before D/C Order can be placed): [facility] Facility Charges/Coding Visit Charges Inpatient E&M: 74722 Disch Hosp >30min
--- NOTE | 2023-03-27 11:21 | PHA.DC.MR.R ---
Pharmacy [place] Med Reconciliation Pharmacy Service has performed discharge medication reconciliation for this patient. The patient's discharge medication list was reviewed for discrepancies and discrepancies were resolved. Medications at Discharge Home Medications ascorbic acid (vitamin C) 500 mg chewable tablet 1,000 mg PO DAILY supplement 02/20/15 cholecalciferol (vitamin D3) 25 mcg (1,000 unit) tablet 1,000 unit PO BID supplement 02/20/15 insulin glargine 100 unit/mL (3 mL) subcutaneous pen (Lantus Solostar U-100 Insulin) 34 unit subcut BID blood sugar 05/29/18 tacrolimus 1 mg capsule, immediate-release (Prograf) 0.5 mg PO BID REJECTION 09/10/19 vitamin B complex 1 tablet PO DAILY SUPPLEMENT 09/10/19 carvedilol 25 mg tablet 12.5 mg PO BID heart 02/25/20 hydroxyzine HCl 25 mg tablet 25 mg PO BID PRN Itching 05/23/20 ropinirole 1 mg tablet 1 mg PO DAILY restless legs 05/23/20 torsemide 20 mg tablet 60 mg PO DAILY FLUID 05/23/20 ropinirole 2 mg tablet,extended release 24 hr 2 mg PO QHS restless legs 06/10/20 sevelamer carbonate 800 mg tablet (Renvela) 1,600 mg PO .TID AC kidney disease 06/10/20 nitroglycerin 0.4 mg sublingual tablet 0.4 mg sublingual Q5M PRN Cardiac/Chest Pain #30 tabs 04/29/21 biotin 1 mg capsule 1 mg PO BID supplement 08/11/21 melatonin 3 mg tablet 10 mg PO QHS sleep 08/11/21 sertraline 50 mg tablet (Zoloft) 50 mg PO DAILY mood 08/11/21 albuterol sulfate 90 mcg/actuation aerosol inhaler 2 puff IH Q4H PRN PRN Sob &/Or Wheezing 30 days #8.6 grams 10/25/21 diphenoxylate-atropine 2.5 mg-0.025 mg tablet (Lomotil) 1 tab PO TID PRN diarrhea #90 tabs 10/27/21 apremilast 30 mg tablet (Otezla) 30 mg PO DAILY 09/08/22 insulin aspart U-100 100 unit/mL (3 mL) subcutaneous pen (Novolog FlexPen U-100 Insulin aspart) 10 unit subcut TID 09/08/22 gabapentin 100 mg capsule 200 mg PO QHS 12/31/22 levothyroxine 88 mcg tablet 88 mcg PO DAILY 12/31/22 midodrine 10 mg tablet 10 mg PO MOWEFR 12/31/22 sucralfate 1 gram tablet (Carafate) 1 g PO BID #30 tabs 12/31/22 trazodone 100 mg tablet 200 mg PO QHS 12/31/22 pantoprazole 40 mg tablet,delayed release 40 mg PO BID #60 tabs 01/08/23 aspirin 81 mg tablet,delayed release (Adult Aspirin Regimen) 81 mg PO DAILY 01/28/23 omega 4-rva-rid-fish oil 1,200 mg (144 mg-216 mg) capsule (Fish Oil) 1 cap PO DAILY SUPPLEMENT 01/28/23 atorvastatin 40 mg tablet 40 mg PO QHS #30 tabs 02/12/23 bisacodyl 10 mg rectal suppository (Dulcolax (bisacodyl)) 10 mg LA DAILY PRN constipation #30 ea 02/12/23 baclofen 5 mg tablet 5 mg PO QHS #30 tabs 03/18/23 hydrocodone-acetaminophen 5-325mg 5mg-325mg 1 tab PO Q6H PRN PRN Pain 3 days #10 TABLETS 03/27/23
--- NOTE | 2023-03-27 11:35 | CASEMGMT ---
Social Work Per physician, pt is ready for discharge today. 7000 exemption form completed in [facility]. DC assistant field hockey coach notified and to complete DC. Disposition: [facility], skilled level of care under convalescent stay MIKKI Santos
[2023-03-27] MEDS: SEVELAMER CARBONATE 800 MG TABLET 1600 MG PO (11:44)
[2023-03-27] MEDS: Midodrine HCl 5 MG Tablet 10 MG PO (11:44)
[2023-03-27] MEDS: Tacrolimus 0.5 MG Capsule PO (11:45)
[2023-03-27] MEDS: Sertraline 50 MG Tablet PO (11:45)
[2023-03-27] MEDS: Pantoprazole Sodium 40 MG Tablet PO (11:45)
[2023-03-27] MEDS: Aspirin E.C. 81 MG Tablet PO (11:45)
[2023-03-27] MEDS: Furosemide 40 MG Tablet 60 MG PO (11:45)
[2023-03-27] MEDS: Insulin Glargine-YFGN 100 UNIT/ML Pen 24 UNIT SC (11:46)
[2023-03-27] MEDS: Vitamin B Comp W-C Capsule 1 CAP PO (11:46)
[2023-03-27] MEDS: rifAXIMin 550 MG Tablet PO (11:46)
[2023-03-27] MEDS: Cholecalciferol (VIT D3) 25 MCG TABLET (1,000 UNITS) PO (11:46)
[2023-03-27] MEDS: Omega-3 Acid Ethyl Esters 1 GM Capsule PO (11:46)
[2023-03-27] MEDS: Carvedilol 12.5 MG Tablet PO (11:46)
[2023-03-27] MEDS: Insulin Lispro 100 UNIT/ML INSULN.PEN 6 UNIT SC (11:47)
--- NOTE | 2023-03-27 12:00 | PCM.PN.REN ---
Subjective Subjective no new complaints today. pain is better Objective Data Objective Data Vital Signs: Vital Signs Temp Pulse Resp BP Pulse Ox O2 Del Method O2 Flow Rate 98.1 F 74 14 133/58 H 98 Nasal Cannula 2 03/27/23 07:40 03/27/23 11:22 03/27/23 11:22 03/27/23 11:22 03/27/23 11:22 03/27/23 11:22 03/27/23 11:22 Oxygen Flow Rate (L/min) 2 Oxygen Delivery Method Nasal Cannula Weight: 107.8 kg Body Mass Index (BMI) 39.6 Intake & Output: Intake and Output for Last 24 Hours 03/25/23 03/26/23 03/27/23 23:59 23:59 23:59 Intake Total 500 / 640 1440 / 1490 100 / 100 Output Total 1900 / 1900 Balance 500 / 640 1440 / 1490 -1800 / -1800 Lab / Micro Data 03/27/23 06:51 03/27/23 06:51 Labs: Laboratory Results - last 24 hr 03/26/23 12:13: POC Glucose 152 H 03/26/23 17:37: POC Glucose 179 H 03/26/23 23:27: POC Glucose 111 H 03/27/23 06:51: WBC 3.7 L, RBC 2.87 L, Hgb 8.5 L, Hct 29.0 L, MCV 101.0 H, MCH 29.6, MCHC 29.3 L, RDW Std Deviation 75.1 H, RDW Coeff of Tami 20.2 H, Plt Count 100 L, MPV 11.2, Immature Gran % (Auto) 0.500, Neut % (Auto) 69.3, Lymph % (Auto) 18.4 L, [place] % (Auto) 8.5, Eos % (Auto) 3.0, Baso % (Auto) 0.3, Absolute Neuts (auto) 2.5, Absolute Lymphs (auto) 0.67 L, Nucleated RBC % 0, Anisocytosis 1+, Sodium 131 L, Potassium 4.9, Chloride 99, Carbon Dioxide 28.0, Anion Gap 4 L, BUN 52 H, Creatinine 7.66 H*, Estim Creat Clear Calc 9.05, Est GFR (MDRD) Af Amer 7 L, Est GFR (MDRD) Non-Af 6 L, BUN/Creatinine Ratio 6.8 L, Glucose 111 H, Calcium 9.2 Micro: Microbiology 03/24/23 22:14 Urine, Catheterized Urine Culture - Preliminary Gram Positive Cocci Alpha hemolytic organism#2 03/24/23 20:55 Mucosa - Nose SARS-CoV-2, Influenza & RSV (PCR) - Final Radiography Diagnostic Testing: Radiology Impression Knee X-Ray 03/26/23 10:35 IMPRESSION: Degenerative arthrosis. Electronically Signed: Naren Boston MD at 15:09 EST , Rhythm Strip Rhythm Strip: Sinus Rhythm Rate: 82 Ectopy: None Physical Exam Narrative Alert awake oriented x 3 Complains of pain no pallor no icterus no JVD s1s2 no murmurs lungs clear abdomen soft no organomegaly no edema no cyanosis Assessment & Plan Assessment/Plan (1) End stage renal disease on dialysis: PLAN: On hemodialysis Saturday, Saturday, Saturday schedule. seen on HD today. pain is better Hypotension. Blood pressure better now Bruise over the left knee. X Ray without any fractures possible transfer to [facility]
--- NOTE | 2023-03-27 12:02 | CASEMGMT ---
Discharge Planning Discharge orders, signed med list, and transport time sent to [facility] via [facility]. Physicians will transport patient by cot at 1:30p. Nursing, SW, and patient updated. Patient stated that she will notify her . Julieta Marquis, Discharge Planning Asst.
[2023-03-27 12:31] LABS: Bedside Glucose 106 mg/dL (74-106)
--- NOTE | 2023-03-27 13:28 | NURSING ---
Report called to [facility] at this time.
== END 2023-03-27 13:33 | disposition skilled nursing facility (03) | DRG 947 ==
LOC: ED 23:26 → MS3 03-25 00:31
PROVIDERS: Admitting Provider Internal Medicine; Emergency Provider Emergency Medicine; PCP Internal Medicine; Visit Provider Internal Medicine
DX: R53.1 Weakness (principal); N18.6 End stage renal disease; I13.2 Hypertensive heart and chronic kidney disease with heart failure and with stage 5 chronic kidney disease, or end stage renal disease; Z68.41 Body mass index [BMI] 40.0-44.9, adult; I50.32 Chronic diastolic (congestive) heart failure; Z94.4 Liver transplant status; D69.6 Thrombocytopenia, unspecified; D63.1 Anemia in chronic kidney disease; E11.22 Type 2 diabetes mellitus with diabetic chronic kidney disease; K74.69 Other cirrhosis of liver; J44.9 Chronic obstructive pulmonary disease, unspecified; E66.01 Morbid (severe) obesity due to excess calories; Z99.2 Dependence on renal dialysis; Z79.4 Long term (current) use of insulin; G25.81 Restless legs syndrome; S43.011A Anterior subluxation of right humerus, initial encounter; E78.5 Hyperlipidemia, unspecified; I25.10 Atherosclerotic heart disease of native coronary artery without angina pectoris; M17.12 Unilateral primary osteoarthritis, left knee; K75.81 Nonalcoholic steatohepatitis (NASH); W18.39XA Other fall on same level, initial encounter; S93.401A Sprain of unspecified ligament of right ankle, initial encounter; R31.9 Hematuria, unspecified; R29.6 Repeated falls; Z95.5 Presence of coronary angioplasty implant and graft; Z79.899 Other long term (current) drug therapy; Z85.41 Personal history of malignant neoplasm of cervix uteri; Z85.42 Personal history of malignant neoplasm of other parts of uterus
CPT/HCPCS: 36415; 70450; 71045; 72125; 73030; 73562; 73564; 73610; 73630; 80048; 81001; 82550; 82962; 83036; 83735; 85025; 87077; 87086; 87088; 87186; 87631; 90937; 93005; 97162; 97166; 99285; J7030; A4216; G0257

== ENCOUNTER 2023-04-15 20:53 | Inpatient (IN) | payer MEDICARE, MEDICAID, SELFPAY ==
[2023-04-15 20:56] VITALS: BP 123/86; PULSE 112; RESP 18; TEMP 36.7; O2SAT 98
--- NOTE | 2023-04-15 21:03 | EKG12_ITS ---
Test Reason : DYSRHYTHMIA Blood Pressure : / mmHG Vent. Rate : 107 BPM Atrial Rate : 107 BPM P-R Int : 172 ms QRS Dur : 124 ms QT Int : 346 ms P-R-T Axes : 071 -44 070 degrees QTc Int : 461 ms Sinus tachycardia Left axis deviation Nonspecific intraventricular conduction delay Cannot rule out Anterolateral infarct , age undetermined Abnormal ECG Confirmed by Aravind Desir ([id number]), video effects editor STEPHANIE PHMA ([id number]) on 04/16/2023 9:31:29 AM Referred By: Confirmed By:Aravind Desir
--- NOTE | 2023-04-15 21:07 | EX.ED.DYSGE1 ---
HPI History of Present Illness Chief Complaint: Alt LOC Detail of Chief Complaint: Lethargy Informant: patient and EMS Narrative Narrative: [facility] for complaint of increased lethargy. Patient complained of shortness of breath. Patient states her shortness of breath started today. She tells me she goes to dialysis on Saturday , Saturday and Saturday. She denies chest pain or Abdominal pain. Mild cough. Patient with history of prior liver transplant. She is somewhat of a poor historian and easily falls asleep. [facility] Medical History Anemia Anemia in chronic kidney disease Anxiety Back pain Blister Cancer Cardiology follow-up encounter Celiac disease Chronic kidney disease, stage 3 Chronic kidney failure Chronic renal failure, stage 5 Cirrhosis COPD (chronic obstructive pulmonary disease) Depression Diabetes Dialysis patient DVT (deep venous thrombosis) DVT (deep venous thrombosis) ESRD (end stage renal disease) Gastric reflux GERD (gastroesophageal reflux disease) History of echocardiogram (~01/22/20) History of edema History of irregular heartbeat History of renal dialysis History of renal disease History of stress test (~12/07/19) History of uterine cancer Hx of Krueger's palsy Hypertension Hypertension Hypothyroidism Infection involving suture with abscess Insulin dependent diabetes mellitus Irregular heart beat LIVER TRANSPLANT Multiple falls Non-smoker Osteoporosis Pancytopenia Sleep apnea Thyroid disease Uses wheelchair Walker as ambulation aid Wears dentures Wears glasses Home Medications ascorbic acid (vitamin C) 500 mg chewable tablet 1,000 mg PO DAILY supplement 02/20/15 [History Last Taken 09/09/19] cholecalciferol (vitamin D3) 25 mcg (1,000 unit) tablet 1,000 unit PO BID supplement 02/20/15 [History Last Taken 09/09/19] insulin glargine 100 unit/mL (3 mL) subcutaneous pen (Lantus Solostar U-100 Insulin) 30 unit subcut BID blood sugar 05/29/18 [History Last Taken 01/30/23] tacrolimus 1 mg capsule, immediate-release (Prograf) 0.5 mg PO BID REJECTION 09/10/19 [History Last Taken 04/27/21] vitamin B complex 1 tablet PO DAILY SUPPLEMENT 09/10/19 [History Last Taken 09/09/19] carvedilol 25 mg tablet 12.5 mg PO BID heart 02/25/20 [History Last Taken 01/30/23] ropinirole 1 mg tablet 1 mg PO DAILY restless legs 05/23/20 [History Last Taken 06/16/20] ropinirole 2 mg tablet,extended release 24 hr 2 mg PO QHS restless legs 06/10/20 [History Last Taken Unknown] sevelamer carbonate 800 mg tablet (Renvela) 1,600 mg PO TIDCM kidney disease 06/10/20 [History Last Taken Unknown] nitroglycerin 0.4 mg sublingual tablet 0.4 mg sublingual Q5M PRN Cardiac/Chest Pain #30 tabs 04/29/21 [Rx Last Taken Unknown] biotin 1 mg capsule 1 mg PO BID supplement 08/11/21 [History Last Taken Unknown] sertraline 50 mg tablet (Zoloft) 50 mg PO DAILY mood 08/11/21 [History Last Taken Unknown] albuterol sulfate 90 mcg/actuation aerosol inhaler 2 puff IH Q4H PRN PRN Sob &/Or Wheezing 30 days #8.6 grams 10/25/21 [Rx Last Taken Unknown] diphenoxylate-atropine 2.5 mg-0.025 mg tablet (Lomotil) 1 tab PO TID PRN diarrhea #90 tabs 10/27/21 [Rx Last Taken 12/30/22] apremilast 30 mg tablet (Otezla) 30 mg PO DAILY 09/08/22 [History Last Taken Unknown] gabapentin 100 mg capsule 200 mg PO QHS 12/31/22 [History Last Taken Unknown] levothyroxine 88 mcg tablet 88 mcg PO DAILY 12/31/22 [History Last Taken 01/30/23] midodrine 10 mg tablet 10 mg PO MOWEFR PRN SBP <95 12/31/22 [History Last Taken Unknown] sucralfate 1 gram tablet (Carafate) 1 g PO BID #30 tabs 12/31/22 [Rx Last Taken Unknown] trazodone 100 mg tablet 200 mg PO QHS 12/31/22 [History Last Taken Unknown] pantoprazole 40 mg tablet,delayed release 40 mg PO BID #60 tabs 01/08/23 [Rx Last Taken Unknown] aspirin 81 mg tablet,delayed release (Adult Aspirin Regimen) 81 mg PO DAILY 01/28/23 [History Last Taken 01/26/23] omega 1-tvk-ytm-fish oil 1,200 mg (144 mg-216 mg) capsule (Fish Oil) 1 cap PO DAILY SUPPLEMENT 01/28/23 [History Last Taken Unknown] bisacodyl 10 mg rectal suppository (Dulcolax (bisacodyl)) 10 mg TX DAILY PRN constipation #30 ea 02/12/23 [Rx Last Taken Unknown] hydrocodone-acetaminophen 5-325mg 5mg-325mg 1 tab PO Q6H PRN PRN Pain 3 days #10 TABLETS 03/27/23 [Rx Last Taken Unknown] acetaminophen 325 mg capsule 650 mg PO Q4H PRN fever or pain 04/15/23 [History Last Taken Unknown] acetaminophen 650 mg rectal suppository 650 mg TX Q4H PRN fever or pain 04/15/23 [History Last Taken Unknown] aluminum-magnesium hydroxide 225 mg-200 mg/5 mL oral suspension 30 ml PO Q4H PRN PRN GI distress 04/15/23 [History Last Taken Unknown] dextrose 40 % oral gel (Gluco Burst) 15 g PO Q15M PRN hypoglycemia 04/15/23 [History Last Taken Unknown] glucagon HCl 1 mg solution for injection (Glucagon (HCl) Emergency Kit) 1 mg IM Q20M PRN hypoglycemia 04/15/23 [History Last Taken Unknown] guaifenesin 100 mg/5 mL oral liquid 200 mg PO Q4H PRN congestion 04/15/23 [History Last Taken Unknown] insulin lispro 100 unit/mL subcutaneous pen (Humalog KwikPen (U-100) Insulin) 5 unit subcut TIDCM 04/15/23 [History Last Taken Unknown] magnesium hydroxide 400 mg/5 mL oral suspension (Milk of Magnesia) 30 ml PO DAILY PRN constipation 04/15/23 [History Last Taken Unknown] melatonin 10 mg tablet 10 mg PO QHS 04/15/23 [History Last Taken Unknown] midodrine 10 mg tablet 10 mg PO MOTUTHFR 04/15/23 [History Last Taken Unknown] sodium phosphates 19 gram-7 gram/118 mL enema (Enema) 118 ml TX DAILY PRN constipation 04/15/23 [History Last Taken Unknown] torsemide 60 mg tablet 60 mg PO DAILY 04/15/23 [History Last Taken Unknown] Allergy/AdvReac Type Severity Reaction Status Date / Time amlodipine [From [facility]] Allergy Severe Hives Verified 04/15/23 20:55 ampicillin sodium Allergy Severe Hives Verified 04/15/23 20:55 [From Unasyn] buspirone HCl [From BuSpar] Allergy Severe Hives Verified 04/15/23 20:55 cefadroxil [From Duricef] Allergy Severe Hives Verified 04/15/23 20:55 lisinopril Allergy Severe Swelling Verified 04/15/23 20:55 naproxen Allergy Severe Hives Verified 04/15/23 20:55 niacin Allergy Severe Hives Verified 04/15/23 20:55 [From Niaspan Extended-Release] sulbactam sodium Allergy Severe Hives Verified 04/15/23 20:55 [From Unasyn] Sulfa (Sulfonamide Allergy Severe Hives Verified 04/15/23 20:55 Antibiotics) cephalexin [From Keflex] Allergy Vomiting Verified 04/15/23 20:55 omeprazole AdvReac Severe Other Verified 04/15/23 20:55 losartan AdvReac Swelling Verified 04/15/23 20:55 Family History Mother Diabetes Anemia Father Hypertension LUNG/RESPIRATORY DISEASE Surgical History History of appendectomy History of cardiac catheterization History of cholecystectomy History of coronary artery stent placement History of coronary artery stent placement History of left knee surgery History of left salpingo-oophorectomy History of liver transplant History of radical hysterectomy History of ventral hernia repair S/P arteriovenous (AV) fistula creation (~06/16/20) Social History housing: apartment current occupational status: disabled Smoking Status: Never smoker substance use type: does not use ROS ROS ED Review of Systems ROS Unobtainable: other Constitutional Constitutional ED: Reports lethargy; Denies chills, fever(s), sweats or weight loss Eyes Eyes: Denies blurry vision, change in vision or diplopia ENT ENT ED: Denies rhinorrhea or sore throat Cardiovascular Cardiovascular: Denies chest pain, orthopnea or racing heartbeat Respiratory/Chest Respiratory/Chest: Reports cough, dyspnea and dyspnea on exertion; Denies orthopnea or sputum Gastrointestinal Gastrointestinal: Denies abdominal pain, diarrhea, nausea or vomiting Genitourinary Genitourinary ED: Denies dysuria, hematuria or urinary frequency Musculoskeletal Musculoskeletal: Denies arthralgias, back pain, myalgias or neck pain Integumentary Denies abscess, Abrasions or rash Neurologic Neurologic: Denies headache(s) or weakness Psychiatric Psychiatric: Denies anxiety, depression or suicidal thoughts Endocrine Endocrinology: Denies polydipsia, polyphagia or polyuria Hematologic/Lymphatic Hematologic/Lymphatic: Denies easy bleeding, easy bruising or lymphadenopathy Allergic/Immunologic Allergic/Immunologic ED: Denies mouth swelling, tongue swelling or urticaria EXAM Physical Exam Const Vital Signs: 04/15/23 20:56 04/15/23 22:24 04/15/23 22:27 Temperature 98.0 F 97.9 F 97.9 F Temperature Source Temporal Temporal Pulse Rate 112 H 100 100 Respiratory Rate 18 20 H 20 H Blood Pressure 123/86 H 91/39 L 91/39 L Blood Pressure Mean 98 56 56 Pulse Ox 98 96 96 Oxygen Delivery Method Room Air Nasal Cannula Oxygen Flow Rate (L/min) 4 Positive well nourished and well developed General Appearance ED: well developed and NAD HEENT Reports TM's clear and moist mucous membranes normocephalic and atraumatic; Negative for trauma or tenderness Tympanic Membrane ED: Yes TM's clear Eyes PERRL and EOMs intact bilaterally General Eye ED: Negative for pale conjunctiva or scleral icterus Neck no lymphadenopathy, supple and no JVD General: Negative for tenderness Chest Wall inspection of chest normal and palpation of chest normal Chest: Negative for tenderness Resp normal respiratory effort and No clear to auscultation bilaterally Resp Narrative: Patient with coarse breath sounds bilaterally and Rales in the right base. Mild tachypnea. Mild tachycardia. No accessory muscle use or retractions. Effort and Inspection: Negative for respiratory distress or pain with movement Auscultation: Negative for rhonchi, wheezes or diminished lung sounds Cardio regular rate, regular rhythm, S1 normal heart sound, S2 normal heart sound and no murmurs Peripheral Pulses: pulses 2+ throughout GI normal to inspection, nondistended, normoactive bowel sounds, soft to palpation, non-tender, non-distended and no masses Back/Spine no CVA tenderness and no thoracic nor lumbar tenderness Extremity normal to inspection Extremity Narrative: +2 edema both lower extremities. General Extremety ED: Yes edema General Extremity: edema Neuro oriented x3, CN's II-XII intact bilaterally, no sensory deficits noted and gait normal Sensorium / Orientation: awake, alert, oriented to person, oriented to place and oriented to time Motor Exam: strength 5/5 throughout and strength abnormal Psych mental status grossly normal Skin no rashes or lesions noted and no wounds MDM MDM MDM Narrative Medical decision making narrative: Patient presents to the emergency department with fever and dyspnea. At prison O2 sat in the 80s and temp up to 103.1. IV line established. Patient placed on a pipe caulker. Chest x-ray consistent with pneumonia. Patient started on Levaquin IV. She had blood cultures ordered. CBC with differential showed a white count of 5.4. Chemistries unremarkable. Lactate was elevated at 3.4. BMP slightly elevated 190. Patient was ordered a liter normal saline fluid bolus as her blood pressure did dip to 91 systolic although she does have history of low blood pressure and takes midodrine scheduled and as needed. Apparently had to be given midodrine at the prison for low blood pressures earlier in the day. Given that she is a dialysis patient will carefully give IV fluids and I ordered a liter normal saline fluid bolus but will not give the large bolus of 30/kg initially given her chronic kidney disease history. Lab Data Attestation: I reviewed the patient's lab results. Labs: Laboratory Results - last 24 hr 04/15/23 04/15/23 21:11 21:20 WBC 5.4 RBC 3.31 L Hgb 9.4 L Hct 31.0 L MCV 93.7 MCH 28.4 MCHC 30.3 L RDW Std Deviation 65.1 H RDW Coeff of Tami 19.4 H Plt Count 76 L MPV 9.8 Immature Gran % (Auto) 0.900 Neut % (Auto) 85.6 H Lymph % (Auto) 8.3 L [place] % (Auto) 4.4 Eos % (Auto) 0.6 Baso % (Auto) 0.2 Absolute Neuts (auto) 4.6 Absolute Lymphs (auto) 0.45 L Nucleated RBC % 0 Differential Comment SCANNED Sodium 133 L Potassium 4.4 Chloride 96 L Carbon Dioxide 28.0 Anion Gap 9 BUN 30 H Creatinine 5.80 H Est GFR (MDRD) Af Amer 9 L Est GFR (MDRD) Non-Af 8 L BUN/Creatinine Ratio 5.2 L Glucose 162 H Lactic Acid 3.4 H* Calcium 8.9 Total Bilirubin 0.50 AST 23 ALT 24 Alkaline Phosphatase 150 H Ammonia 22.0 Troponin I High Sens 27 B-Natriuretic Peptide 190.4 H Total Protein 6.3 L Albumin 2.6 L Globulin 3.7 Albumin/Globulin Ratio 0.7 L Radiography Diagnostic Testing: Clinical Impression(s) from Imaging Studies Chest X-Ray 04/15/23 21:34 IMPRESSION: Possible mild vascular congestion with superimposed left lower lobe pneumonia. [place] of markings in the right lower lobe versus atelectasis versus infiltrate. Electronically Signed: Flora Solis MD at 22:18 EST , 1 view chest x-ray obtained interpreted by myself as bilateral infiltrates. Radiology in agreement and suggest there may be superimposition of pulmonary congestion. EKG Initial EKG: Attestation: I personally reviewed and interpreted this EKG as follows: Comments: Sinus tachycardia with rate of 107 bpm with LVH and old inferior infarct. Critical Care Time Critical care time (excluding procedures): 30-74 minutes, Including time spent:, Discussing w/Patient &/or Family/Screw Machine Hand, Discussing w/Consultants, Arranging Admission or Transfer, Performing Direct Patient Care at Bedside and - (30 minutes) Discharge Plan Dx/Rx/DC Orders Clinical Impression: Pneumonia, Chronic kidney disease, Acute dyspnea, Sepsis Disposition Disposition: Acute Care [facility]
--- OUTSIDE RECORDS SUMMARY | 2023-04-15 21:23 | XMS RPT_ITS | CCD ---
Author Name Unknown Address [address] [place] [address] Organization [facility] Care Team Providers Care Lace Winder Name Role Phone Geremias FOFANA, Jame Primary Care Provider [facility], Kim Unavailable Vaughn Reeves RN Unavailable Unavailable Dao FOFANA, Jayaoumoukash Unavailable Alicia FOFANA, Vicente Armenta Unavailable Spencer RN, Roxie Unavailable Jame Hunt MD Primary Care Provider [facility], Kim Unavailable Vaughn Reeves RN Unavailable Unavailable Dao FOFANA, Jayaprakash Unavailable Alicia FOFANA, Vicente Armenta Unavailable Dasha Colvin RN Unavailable Unavailable Geremias FOFANA, Jame Primary Care Provider Dao FOFANA, Jajoeprakash R Unavailable Paul PICKETT, Sienna Jara Unavailable Unavailhunter Dc MD, Jayaprakash R Unavailable Paul PICKETT, Sienna Jara Unavailable Unavailhunter Palmer RN, Roxie Unavailable Lizeth Bey MD Unavailable [phone] GANTA, JAME Primary Care Unavailable GANTA, JAME [...] Care Unavailable RUTHIE, ZIAD Referring Unavailable GANTA, AJME Primary Care Unavailable ERIN SHIRLEY Attending Unavailable [...] Care Unavailable GANTA, JAME Primary Care Unavailable AMADEO EVERETT Referring Unavailable GANTA, JAME Primary Care Unavailable GANTA, JAME Primary Care Unavailable GANTA, JAME Primary Care Unavailable RAMIN MACK Referring Unavailable GANTA, JAME Primary Care Unavailable OLDER, SILVA Referring Unavailable GANTA, JAME Primary Care Unavailable OLDER, SILVA Referring Unavailable GANTA, JAME Primary Care Unavailable AMADEO EVERETT Attending Unavailable KEL VICTORIA Referring Unavailable GANTA, JAME Primary Care Unavailable DAO, JAYAPRAKASH R Referring Unavailabl e GANTA, JAME Primary Care Unavailable KEL VICTORIA Referring Unavailable LIZETH BEY Attending Unavailable [facility] Primary Care Unavailable SILVA PLASENCIA Referring Unavailable GANTA, JAME Primary Care Unavailable GANTA, JAME Primary Care Unavailable GANTA, JAME Primary Care Unavailable OLDERSILVA Attending Unavailable [facility] Primary Care Unavailable Allergies Allergy Classification Reported Allergen(s) Allergy Type Date of Onset Reaction(s) Facility (20 sources) Ampicillin / Sulbactam; Translations: [AMPICILLIN-SULB ACTAM] Drug Allergy 8 [facility] (20 sources) busPIRone; Translations: [BUSPIRONE HCL] Drug Allergy 8 [facility] (20 sources) Cefadroxil; Translations: [CEFADROXIL] Drug Allergy 8 [facility] (20 sources) Cephalexin; Translations: [CEPHALEXIN] Drug Allergy 9 [facility] (20 sources) Clindamycin; Translations: [CLINDAMYCIN] Drug Allergy 9 Vomiting [facility] (20 sources) Lisinopril; Translations: [LISINOPRIL] Drug Allergy 5 [facility] (20 sources) Losartan; Translations: [LOSARTAN] Drug Allergy 8 [facility] Work Phone: (20 sources) Naproxen; Translations: [NAPROXEN] Drug Allergy 5 Other: See [facility] (20 sources) Niacin; Translations: [NIACIN] Drug Allergy 9 [facility] (20 sources) Sulfonamides (Antibiotic); Translations: [SULFA (SULFONAMIDE ANTIBIOTICS)] Drug Intolerance 5 [facility] (11 sources) amLODIPine; Translations: [AMLODIPINE] Drug Allergy 8 [facility] (11 sources) busPIRone; Translations: [BUSPIRONE] Drug Allergy 9 [facility] (11 sources) Doxylamine; Translations: [DOXYLAMINE SUCCINATE] Drug Allergy 3 [facility] (11 sources) Omeprazole; Translations: [OMEPRAZOLE] Drug Allergy 8 Other: See Comments [facility] (11 sources) Sulbactam; Translations: [SULBACTAM] Drug Allergy 9 Hives [facility] (11 sources) traMADol; Translations: [TRAMADOL] Drug Allergy 3 Vomiting [facility] Medications Current Medications Medication Drug Class(es) [...] Coronary atherosclerosis; Translations: [Atherosclerotic heart disease of tribe coronary artery without angina pectoris] Onset: 12-13-2020 04-04-2021 Chronic Deficiency and other anemia (2 sources) Anemia in chronic kidney disease; Translations: [Anemia in stage 4 chronic kidney disease (HCC) ([facility])] Onset: 12-17-2016 Chronic Diabetes mellitus with complications (1 source) Type 2 diabetes mellitus with hyperosmolarity without nonketotic hyperglycemic-hyperos molar coma ([facility]); Translations: [Type 2 diabetes mellitus with hyperosmolarity 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, with long-term current use of insulin ([facility])] Onset: 02-28-2021 Chronic Diabetes mellitus without complication [...] 04-15-2008 Chronic Other aftercare (1 source) 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; Translations: [Medication management] Onset: [...] 2 05-23-2021 Episodic Other aftercare (1 source) 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; Translations: [Type 2 [...] Date Time Vital Sign Value Performing Clinician Jean Marie mendes 01-10-2023 14:09-0500 Body weight 116 kg Lizeth Bey MD Work Phone: [facility] 01-10-2023 14:09-0500 Diastolic blood pressure 66 mm[Hg] Lizeth Bey MD Work Phone: [facility] 01-10-2023 14:09-0500 Heart rate 85 /min Lizeth Bey MD Work Phone: [facility] 01-10-2023 14:09-0500 SaO2% (BldA) [Mass fraction] 98 % Lizeth Bey MD Work Phone: [facility] 01-10-2023 14:09-0500 Systolic blood pressure 156 mm[Hg] Lizeth Bey MD Work Phone: [facility] 01-10-2023 09:23-0500 Body height 166.4 cm Amadeo Karlos WORM PICKER.ELECTRONIC ENGINEERING DRAFTSPERSON Work Phone: [facility] 01-10-2023 09:23-0500 Body temperature 98.4 [degF] Amadeo Karlos WORM PICKER.ELECTRONIC ENGINEERING DRAFTSPERSON Work Phone: [facility] 01-10-2023 09:23-0500 Body weight 116.03 kg Amadeo Karlos WORM PICKER.ELECTRONIC ENGINEERING DRAFTSPERSON Work Phone: [facility] 01-10-2023 09:23-0500 Diastolic blood pressure 45 mm[Hg] Amadeo Karlos WORM PICKER.ELECTRONIC ENGINEERING DRAFTSPERSON Work Phone: [facility] 01-10-2023 09:23-0500 Heart rate 78 /min Amadeo Karlos WORM PICKER.ELECTRONIC ENGINEERING DRAFTSPERSON Work Phone: [facility] 01-10-2023 09:23-0500 SaO2% (BldA) [Mass fraction] 100 % Amadeo Karlos WORM PICKER.ELECTRONIC ENGINEERING DRAFTSPERSON Work Phone: [facility] 01-10-2023 09:23-0500 Systolic blood pressure 144 mm[Hg] Amadeo Karlos WORM PICKER.ELECTRONIC ENGINEERING DRAFTSPERSON Work Phone: [facility] 01-09-2023 13:51-0500 Body height 166.4 cm Silva Older WORM PICKER.ELECTRONIC ENGINEERING DRAFTSPERSON Work Phone: [facility] 01-09-2023 13:51-0500 Body temperature 97.2 [degF] Silva Older WORM PICKER.ELECTRONIC ENGINEERING DRAFTSPERSON Work Phone: [facility] 01-09-2023 13:51-0500 Body weight 115.21 kg Silva Older WORM PICKER.ELECTRONIC ENGINEERING DRAFTSPERSON Work Phone: [facility] 01-09-2023 13:51-0500 Diastolic blood pressure 60 mm[Hg] Silva Older WORM PICKER.ELECTRONIC ENGINEERING DRAFTSPERSON Work Phone: [facility] 01-09-2023 13:51-0500 Heart rate 87 /min Silva Older WORM PICKER.ELECTRONIC ENGINEERING DRAFTSPERSON Work Phone: [facility] 01-09-2023 13:51-0500 Respiratory rate 18 /min Silva Older WORM PICKER.ELECTRONIC ENGINEERING DRAFTSPERSON Work Phone: [facility] 01-09-2023 13:51-0500 SaO2% (BldA) [Mass fraction] 99 % Silva Older WORM PICKER.ELECTRONIC ENGINEERING DRAFTSPERSON Work Phone: [facility] 01-09-2023 13:51-0500 Systolic blood pressure 126 mm[Hg] Silva Older WORM PICKER.ELECTRONIC ENGINEERING DRAFTSPERSON Work Phone: [facility] 12-27-2022 08:02-0400 Body temperature 97.59 [degF] Silva Older WORM PICKER.ELECTRONIC ENGINEERING DRAFTSPERSON Work Phone: [facility] 12-27-2022 08:02-0400 Diastolic blood pressure 58 mm[Hg] Silva Older WORM PICKER.ELECTRONIC ENGINEERING DRAFTSPERSON Work Phone: [facility] 12-27-2022 08:02-0400 Heart rate 65 /min Silva Older WORM PICKER.ELECTRONIC ENGINEERING DRAFTSPERSON Work Phone: [facility] 12-27-2022 08:02-0400 Respiratory rate 16 /min Silva Older WORM PICKER.ELECTRONIC ENGINEERING DRAFTSPERSON Work Phone: [facility] 12-27-2022 08:02-0400 SaO2% (BldA) [Mass fraction] 93 % Silva Older WORM PICKER.ELECTRONIC ENGINEERING DRAFTSPERSON Work Phone: [facility] 12-27-2022 08:02-0400 Systolic blood pressure 136 mm[Hg] Silva Older WORM PICKER.ELECTRONIC ENGINEERING DRAFTSPERSON Work Phone: [facility] 11-26-2022 14:10-0400 Body height 166.4 cm Ramin Denbow PA-C Work Phone: [facility] 11-26-2022 14:10-0400 Body temperature 98.29 [degF] Ramin Denbow PA-C Work Phone: [facility] 11-26-2022 14:10-0400 Body weight 114.76 kg Ramin Denbow PA-C Work Phone: [facility] 11-26-2022 14:10-0400 Diastolic blood pressure 56 mm[Hg] Ramin Denbow PA-C Work Phone: [facility] 11-26-2022 14:10-0400 Heart rate 83 /min Ramin Denbow PA-C Work Phone: [facility] 11-26-2022 14:10-0400 Respiratory rate 14 /min Ramin Denbow PA-C Work Phone: [facility] 11-26-2022 14:10-0400 SaO2% (BldA) [Mass fraction] 97 % Ramin Denbow PA-C Work Phone: [facility] 11-26-2022 14:10-0400 Systolic blood pressure 136 mm[Hg] Ramin Denbow PA-C Work Phone: [facility] 11-07-2022 12:36-0400 Diastolic blood pressure 46 mm[Hg] Erin Older WORM PICKER.ELECTRONIC ENGINEERING DRAFTSPERSON Work Phone: [facility] 11-07-2022 12:36-0400 Heart rate 76 /min Erin Older WORM PICKER.ELECTRONIC ENGINEERING DRAFTSPERSON Work Phone: [facility] 11-07-2022 12:36-0400 Respiratory rate 14 /min Erin Older WORM PICKER.ELECTRONIC ENGINEERING DRAFTSPERSON Work Phone: [facility] 11-07-2022 12:36-0400 Systolic blood pressure 147 mm[Hg] Erin Older WORM PICKER.ELECTRONIC ENGINEERING DRAFTSPERSON Work Phone: [facility] 10-27-2022 12:38-0400 Body temperature 98.8 [degF] Sandy Mendes WORM PICKER.ELECTRONIC ENGINEERING DRAFTSPERSON Work Phone: [facility] 10-27-2022 12:38-0400 Body weight 114.76 kg Sandy Mendes APRN.ELECTRONIC ENGINEERING DRAFTSPERSON Work Phone: [facility] 10-27-2022 12:38-0400 Diastolic blood pressure 58 mm[Hg] Sandy Mendes WORM PICKER.ELECTRONIC ENGINEERING DRAFTSPERSON Work Phone: [facility] 10-27-2022 12:38-0400 Heart rate 75 /min Sandy Mendes APRN.ELECTRONIC ENGINEERING DRAFTSPERSON Work Phone: [facility] 10-27-2022 12:38-0400 Respiratory rate 16 /min Sandy Mendes APRN.ELECTRONIC ENGINEERING DRAFTSPERSON Work Phone: [facility] 10-27-2022 12:38-0400 SaO2% (BldA) [Mass fraction] 98 % Sandy Mendes APRN.ELECTRONIC ENGINEERING DRAFTSPERSON Work Phone: [facility] 10-27-2022 12:38-0400 Systolic blood pressure 148 mm[Hg] Sandy Mendes WORM PICKER.ELECTRONIC ENGINEERING DRAFTSPERSON Work Phone: [facility] 07-12-2022 11:23-0400 Body height 166.4 cm Annette John Paul MONTEZ [facility] 07-12-2022 11:23-0400 Body weight [address] [facility] 05-02-2022 12:30-0500 Body temperature 98.6 [degF] Silva Older WORM PICKER.ELECTRONIC ENGINEERING DRAFTSPERSON Work Phone: [facility] 05-02-2022 12:30-0500 Body weight 113.4 kg Silva Older WORM PICKER.ELECTRONIC ENGINEERING DRAFTSPERSON Work Phone: [facility] 05-02-2022 12:30-0500 Diastolic blood pressure 46 mm[Hg] Silva Older WORM PICKER.ELECTRONIC ENGINEERING DRAFTSPERSON Work Phone: [facility] 05-02-2022 12:30-0500 Heart rate 86 /min Silva Older WORM PICKER.ELECTRONIC ENGINEERING DRAFTSPERSON Work Phone: [facility] 05-02-2022 12:30-0500 Respiratory rate 16 /min Silva Older WORM PICKER.ELECTRONIC ENGINEERING DRAFTSPERSON Work Phone: [facility] 05-02-2022 12:30-0500 SaO2% (BldA) [Mass fraction] 97 % Silva Older WORM PICKER.ELECTRONIC ENGINEERING DRAFTSPERSON Work Phone: [facility] 05-02-2022 12:30-0500 Systolic blood pressure 98 mm[Hg] Silva Older WORM PICKER.ELECTRONIC ENGINEERING DRAFTSPERSON Work Phone: [facility] 02-05-2022 11:51-0500 Body height 165.1 cm Jame Hunt MD Work Phone: [facility] 02-05-2022 11:51-0500 Body temperature 98.49 [degF] Jame Hunt MD Work Phone: [facility] 02-05-2022 11:51-0500 Body weight 110.22 kg Jame Hunt MD Work Phone: [facility] 02-05-2022 11:51-0500 Diastolic blood pressure 50 mm[Hg] Jame Hunt MD Work Phone: [facility] 02-05-2022 11:51-0500 Heart rate 89 /min Jame Hunt MD Work Phone: [facility] 02-05-2022 11:51-0500 Respiratory rate 18 /min Jame Hunt MD Work Phone: [facility] 02-05-2022 11:51-0500 SaO2% (BldA) [Mass fraction] 96 % Jame Hunt MD Work Phone: [facility] 02-05-2022 11:51-0500 Systolic blood pressure 110 mm[Hg] Jame Hunt MD Work Phone: [facility] 01-29-2022 12:59-0500 Body temperature 98.8 [degF] Silva Older WORM PICKER.ELECTRONIC ENGINEERING DRAFTSPERSON Work Phone: [facility] 01-29-2022 12:59-0500 Diastolic blood pressure 68 mm[Hg] Silva Older WORM PICKER.ELECTRONIC ENGINEERING DRAFTSPERSON Work Phone: [facility] 01-29-2022 12:59-0500 Heart rate 84 /min Silva Older WORM PICKER.ELECTRONIC ENGINEERING DRAFTSPERSON Work Phone: [facility] 01-29-2022 12:59-0500 SaO2% (BldA) [Mass fraction] 98 % Silva Older WORM PICKER.ELECTRONIC ENGINEERING DRAFTSPERSON Work Phone: [facility] 01-29-2022 12:59-0500 Systolic blood pressure 140 mm[Hg] Silva Older WORM PICKER.ELECTRONIC ENGINEERING DRAFTSPERSON Work Phone: [facility] 01-01-2022 13:54-0400 Body weight 112.04 kg Silva Older WORM PICKER.ELECTRONIC ENGINEERING DRAFTSPERSON Work Phone: [facility] 01-01-2022 13:54-0400 Diastolic blood pressure 68 mm[Hg] Silva Older WORM PICKER.ELECTRONIC ENGINEERING DRAFTSPERSON Work Phone: [facility] 01-01-2022 13:54-0400 Heart rate 80 /min Silva Older WORM PICKER.ELECTRONIC ENGINEERING DRAFTSPERSON Work Phone: [facility] 01-01-2022 13:54-0400 Respiratory rate 16 /min Silva Older WORM PICKER.ELECTRONIC ENGINEERING DRAFTSPERSON Work Phone: [facility] 01-01-2022 13:54-0400 Systolic blood pressure 144 mm[Hg] Silva Older WORM PICKER.ELECTRONIC ENGINEERING DRAFTSPERSON Work Phone: [facility] 12-11-2021 14:24-0400 Diastolic blood pressure 62 mm[Hg] Silva Older WORM PICKER.ELECTRONIC ENGINEERING DRAFTSPERSON Work Phone: [facility] 12-11-2021 14:24-0400 Heart rate 68 /min Silva Older WORM PICKER.ELECTRONIC ENGINEERING DRAFTSPERSON Work Phone: [facility] 12-11-2021 14:24-0400 Respiratory rate 16 /min Silva Older WORM PICKER.ELECTRONIC ENGINEERING DRAFTSPERSON Work Phone: [facility] 12-11-2021 14:24-0400 Systolic blood pressure 132 mm[Hg] Silva Older WORM PICKER.ELECTRONIC ENGINEERING DRAFTSPERSON Work Phone: [facility] 10-20-2021 08:55-0400 Body weight 114.76 kg Jaci Zurawick WORM PICKER.ELECTRONIC ENGINEERING DRAFTSPERSON Work Phone: [facility] 10-20-2021 08:55-0400 Diastolic blood pressure 50 mm[Hg] Jaci Zurawick WORM PICKER.ELECTRONIC ENGINEERING DRAFTSPERSON Work Phone: [facility] 10-20-2021 08:55-0400 Heart rate 68 /min Jaci Zurawick WORM PICKER.ELECTRONIC ENGINEERING DRAFTSPERSON Work Phone: [facility] 10-20-2021 08:55-0400 Respiratory rate 18 /min Jaci Zurawick WORM PICKER.ELECTRONIC ENGINEERING DRAFTSPERSON Work Phone: [facility] 10-20-2021 08:55-0400 Systolic blood pressure 138 mm[Hg] Jaci Zurawick WORM PICKER.ELECTRONIC ENGINEERING DRAFTSPERSON Work Phone: [facility] 09-28-2021 12:35-0400 Diastolic blood pressure 66 mm[Hg] Silva Older WORM PICKER.ELECTRONIC ENGINEERING DRAFTSPERSON Work Phone: [facility] 09-28-2021 12:35-0400 Heart rate 72 /min Silva Older WORM PICKER.ELECTRONIC ENGINEERING DRAFTSPERSON Work Phone: [facility] 09-28-2021 12:35-0400 Respiratory rate 16 /min Silva Older WORM PICKER.ELECTRONIC ENGINEERING DRAFTSPERSON Work Phone: [facility] 09-28-2021 12:35-0400 Systolic blood pressure 140 mm[Hg] Silva Older WORM PICKER.ELECTRONIC ENGINEERING DRAFTSPERSON Work Phone: [facility] 08-31-2021 08:32-0400 Body weight 112.95 kg Silva Older WORM PICKER.ELECTRONIC ENGINEERING DRAFTSPERSON Work Phone: [facility] 08-31-2021 08:32-0400 Diastolic blood pressure 60 mm[Hg] Silva Older WORM PICKER.ELECTRONIC ENGINEERING DRAFTSPERSON Work Phone: [facility] 08-31-2021 08:32-0400 Heart rate 75 /min Silva Older WORM PICKER.ELECTRONIC ENGINEERING DRAFTSPERSON Work Phone: [facility] 08-31-2021 08:32-0400 Respiratory rate 16 /min Silva Older WORM PICKER.ELECTRONIC ENGINEERING DRAFTSPERSON Work Phone: [facility] 08-31-2021 08:32-0400 SaO2% (BldA) [Mass fraction] 98 % Silva Older WORM PICKER.ELECTRONIC ENGINEERING DRAFTSPERSON Work Phone: [facility] 08-31-2021 08:32-0400 Systolic blood pressure 130 mm[Hg] Silva Older WORM PICKER.ELECTRONIC ENGINEERING DRAFTSPERSON Work Phone: [facility] 08-25-2021 08:22-0400 Body weight 113.4 kg Silva Older WORM PICKER.ELECTRONIC ENGINEERING DRAFTSPERSON Work Phone: [facility] 08-25-2021 08:22-0400 Diastolic blood pressure 62 mm[Hg] Silva Older WORM PICKER.ELECTRONIC ENGINEERING DRAFTSPERSON Work Phone: [facility] 08-25-2021 08:22-0400 Heart rate 72 /min Silva Older WORM PICKER.ELECTRONIC ENGINEERING DRAFTSPERSON Work Phone: [facility] 08-25-2021 08:22-0400 Respiratory rate 16 /min Silva Older WORM PICKER.ELECTRONIC ENGINEERING DRAFTSPERSON Work Phone: [facility] 08-25-2021 08:22-0400 Systolic blood pressure 134 mm[Hg] Silva Older WORM PICKER.ELECTRONIC ENGINEERING DRAFTSPERSON Work Phone: [facility] 08-14-2021 12:01-0400 Body height 165.1 cm Jame Hunt MD Work Phone: [facility] 08-14-2021 12:01-0400 Body temperature 97.11 [degF] Jame Hunt MD Work Phone: [facility] 08-14-2021 12:01-0400 Diastolic blood pressure 44 mm[Hg] Jame Hunt MD Work Phone: [facility] 08-14-2021 12:01-0400 Heart rate 74 /min Jame Hunt MD Work Phone: [facility] 08-14-2021 12:01-0400 Respiratory rate 16 /min Jame Hunt MD Work Phone: [facility] 08-14-2021 12:01-0400 SaO2% (BldA) [Mass fraction] 100 % Jame Hunt MD Work Phone: [facility] 08-14-2021 12:01-0400 Systolic blood pressure 114 mm[Hg] Jame Hunt MD Work Phone: [facility] 07-03-2021 10:24-0400 Body weight 112.95 kg Josse Lance WORM PICKER.BINDING STITCHER Work Phone: [facility] 07-03-2021 10:24-0400 Diastolic blood pressure 56 mm[Hg] Josse Lance WORM PICKER.BINDING STITCHER Work Phone: [facility] 07-03-2021 10:24-0400 Heart rate 76 /min Josse Lance WORM PICKER.BINDING STITCHER Work Phone: [facility] 07-03-2021 10:24-0400 Respiratory rate 16 /min Josse Lance WORM PICKER.BINDING STITCHER Work Phone: [facility] 07-03-2021 10:24-0400 Systolic blood pressure 122 mm[Hg] Josse Lance WORM PICKER.BINDING STITCHER Work Phone: [facility] Encounters Encounter Date Encounter Type Care Provider Facility Start: 02-20-2023 End: 02-21-2023 ambulatory ELKHART OLDER Facility:[facility] Start: 02-20-2023 End: 02-21-2023 [facility] Facility:[facility] Start: 02-11-2023 Telephone encounter Dasha Miller RN (R n) [facility] Procedures Date Procedure Procedure Detail Performing Clinician Start: 01-09-2023 [employer] COVI D-19 VACCINE (2022- SEASON) AGE 12+ YR Silva Older WORM PICKER.ELECTRONIC ENGINEERING DRAFTSPERSON Work Phone: Start: 11-07-2022 Dxa bone density ximena dy 1/> sites axial skel Silva Older WORM PICKER.ELECTRONIC ENGINEERING DRAFTSPERSON Work Phone: Start: 07-12-2022 Antibody screen JAME HUNT Plan of Treatment Date Care Activity Detail Author Start: 12-31-2028 Urine microalbumin profile [facility] Start: 09-13-2027 Colonoscopy COLONOSCOPY [facility] Start: 09-13-2027 COLORECTAL CANCER SCREENING COLORECTAL CANCER SCREENING [facility] Start: 11-07-2025 PNEUMOCOCCAL (4 - PP SV23 if available, else PCV20) PNEUMOCOCCAL (4 - PPSV23 if available, else PCV20) [facility] Start: 11-07-2025 PNEUMOCOCCAL (4 - PP SV23 or PCV20) PNEUMOCOCCAL (4 - PPSV23 or PCV20) [facility] Start: 11-07-2025 PNEUMOCOCCAL: 65+ (4 - PPSV23 if available, else PCV20) PNEUMOCOCCAL: 65+ (4 - PPSV23 if available, else PCV20) [facility] Start: 11-07-2025 PNEUMOCOCCAL: 65+ (4 - PPSV23 or PCV20) PNEUMOCOCCAL: 65+ (4 - PPSV23 or PCV20) [facility] Start: 01-10-2024 Annual PCP Team Business Systems Advisor braeden Disease Visit Annual PCP Team Chronic Disease Visit [facility] Start: 01-10-2024 BP Controlled (<130/80) BP Controlle d (<130/80) [facility] Start: 01-10-2024 RSV Vaccine (1 - 1-d ose 60+ series) RSV Vaccine (1 - 1-dose 60+ series) [facility] Immunizations Immunization Date Immunization Notes Care Provider Guido baptiste 01-09-2023 COVID-19 vaccine, ag e 12+ yr, season ([employer]) Silva Plasencia WORM PICKER.ELECTRONIC ENGINEERING DRAFTSPERSON Work Phone: [facility] 12-09-2022 influenza, injectabl e, quadrivalent, preservative free Kel Victoria MD Work Phone: [facility] 10-15-2022 Hepatitis B vaccine (recombinant), CpG adjuvanted Jame Hunt MD Work Phone: [facility] 08-13-2022 Hepatitis B vaccine (recombinant), CpG jonathan Hunt MD Work Phone: [facility] 07-09-2022 Hepatitis B vaccine (recombinant), CpG adjuvantkit Hunt MD Work Phone: [facility] 06-11-2022 Hepatitis B vaccine (recombinant), CpG adjuvantkit Hunt MD Work Phone: [facility] 01-15-2022 pneumococcal (PCV20) vaccine, 20 valent (PREVNAR 20) Jame Hunt MD Work Phone: [facility] 11-25-2021 COVID-19 booster vaccine, age 12+ yr, bivalent ([employer]) Jame Hunt MD Work Phone: [facility] 11-20-2021 influenza, injectabl e, quadrivalent, contains preservative Jame Hunt MD Work Phone: [facility] 11-20-2021 influenza, injectabl e, quadrivalent, preservative free Jame Hunt MD Work Phone: [facility] 11-20-2021 influenza virus vacc ine, unspecified formulation Jame Hunt MD Work Phone: [facility] 10-20-2021 influenza, seasonal, injectable Jame Hunt MD Work Phone: [facility] 10-11-2021 Hepatitis B vaccine (recombinant), CpG jonathan Hunt MD Work Phone: [facility] 09-11-2021 zoster vaccine recombinant Kim La [facility] Work Phone: [facility] 08-15-2021 Hepatitis B vaccine (recombinant), CpG jonathan Hunt MD Work Phone: [facility] 07-10-2021 Hepatitis B vaccine (recombinant), CpG jonathan Hunt MD Work Phone: [facility] 06-15-2021 zoster vaccine recombinant Kim La [facility] Work Phone: [facility] 06-12-2021 Hepatitis B vaccine (recombinant), CpG jonathan Hunt MD Work Phone: [facility] 05-02-2021 COVID-19 vaccine, ag e 12+ yr (PFIZER-[employer]IONTE[employer] - [employer]NEY [employer]) Kim La Formerly [facility] Work Phone: [facility] Work Phone: 03-13-2021 Hepatitis B vaccine (recombinant), CpG adjuvanted Jame Hunt MD Work Phone: [facility] 01-09-2021 Hepatitis B vaccine (recombinant), CpG adjuvanted Jame Hunt MD Work Phone: [facility] 12-30-2020 influenza, seasonal, injectable, preservative free Renetta Mendez RN [facility] 12-12-2020 Hepatitis B vaccine (recombinant), CpG adjuvanted Jame Hunt MD Work Phone: [facility] 11-14-2020 Hepatitis B vaccine (recombinant), CpG adjuvanted Jame Hunt MD Work Phone: [facility] 11-14-2020 pneumococcal polysaccharide vaccine, 23 valent Jame Hunt MD Work Phone: [facility] 11-07-2020 hepatitis B vaccine, adult dosage Jame Hunt MD Work Phone: [facility] Work Phone: 11-07-2020 pneumococcal polysaccharide vaccine, 23 valent Jame Hunt MD Work Phone: [facility] Work Phone: 11-01-2020 influenza, injectabl e, quadrivalent, contains preservative Jame Hunt MD Work Phone: [facility] Work Phone: 11-01-2020 Seasonal, quadrivale nt, recombinant, injectable influenza vaccine, preservative free Renetta Mendez RN [facility] 10-31-2020 influenza virus vacc ine, unspecified formulation Rneetta Mendez RN [facility] 06-02-2020 COVID-19 original vaccine, age 12+ yr, monovalent (PFIZER-BIONTECH - PURPLE TOP) Renetta Mendez RN [facility] 06-01-2020 COVID-19 vaccine, ag e 12+ yr (K9 Design-Compass-EOSNTECH - PURPLE TOP) Jame Hunt MD Work Phone: [facility] 12-31-2019 influenza, injectabl e, quadrivalent, preservative free Jame Hunt MD Work Phone: [facility] 12-31-2018 influenza, injectabl e, quadrivalent, contains preservative Jame Hunt MD Work Phone: [facility] 12-31-2018 tetanus and diphther ia toxoids, adsorbed, preservative free, for adult use (5 Lf of tetanus toxoid and 2 Lf of diphtheria toxoid) Jame Hunt MD Work Phone: [facility] 12-16-2017 influenza, seasonal, injectable, preservative free Renetta Mendez RN [facility] 12-08-2017 influenza virus vacc ine, unspecified formulation Renetta Mendez RN [facility] 12-07-2016 pneumococcal conjuga te vaccine, 13 valent Jame Hunt MD Work Phone: [facility] Work Phone: 11-30-2016 influenza, seasonal, injectable Jame Hunt MD Work Phone: [facility] 05-28-2016 influenza, seasonal, injectable, preservative free Renetta Mendez RN [facility] 05-28-2016 pneumococcal polysaccharide vaccine, 23 valent Renetta Mendez RN [facility] 01-02-2016 influenza, seasonal, injectable Jame Hunt MD Work Phone: [facility] 01-02-2016 influenza, seasonal, injectable, preservative free Renetta Mendez RN [facility] 12-24-2014 influenza, injectabl e, quadrivalent, preservative free Jame Hunt MD Work Phone: [facility] 12-21-2014 influenza, seasonal, injectable, preservative free Renetta Mendez RN [facility] 12-03-2013 influenza, seasonal, injectable, preservative free Renetta Mendez RN [facility] 12-03-2013 pneumococcal polysaccharide vaccine, 23 valent Jame Hunt MD Work Phone: [facility] 12-03-2013 pneumococcal vaccine , unspecified formulation Renetta Mendez RN [facility] 12-08-2008 influenza virus vacc ine, unspecified formulation Jame Hunt MD Work Phone: [facility] 11-24-2008 pneumococcal polysaccharide vaccine, 23 valent Kim La [facility] Work Phone: [facility] Work Phone: 05-04-2008 haemophilus influenz ae type b vaccine, PRP-T conjugate Jame Hunt MD Work Phone: [facility] 05-04-2008 meningococcal polysaccharide vaccine (MPSV4) Jame Hunt MD Work Phone: [facility] Work Phone: 05-04-2008 pneumococcal polysaccharide vaccine, 23 valent Jame Hunt MD Work Phone: [facility] Work Phone: 02-19-2008 hepatitis A and hepatitis B vaccine Jame Hunt MD Work Phone: [facility] 02-19-2008 tetanus toxoid, redu rios diphtheria toxoid, and acellular pertussis vaccine, adsorbed Jame Hunt MD Work Phone: [facility] 12-11-2007 influenza virus vacc ine, unspecified formulation Jame Hunt MD Work Phone: [facility] 12-31-2006 influenza virus vacc ine, unspecified formulation Jame Hunt MD Work Phone: [facility] Payers Date Payer Category Payer Medicaid [employer] [id number] 2021-Present [phone] [address] [place] [address] Medicaid [id number] 2021 Medicaid [id number] 2021 Medicaid [id number] 2021 Medicaid [id number] 2021 Medicaid [id number] 2021 Medicare HUMANA MEDICARE HUMANA GOLD PLUS [id number] 2021-Present [phone] [address] [address] [place] [address] O [id number] 2021 Medicare HUMANA MEDICARE HUMANA GOLD PLUS [id number] 2021-Present [phone] [address] [address] [place] [address] O [id number] 2021 Private Health Insurance [id number] Social History Date Type Detail Facility Start: 10-04-2016 End: 02-05-2022 Tobacco smoking status NHIS Never smoked tobacco [facility] Start: 10-04-2016 End: 02-05-2022 Tobacco use and exposure Smokeless tobacco non-user [facility] Start: 04-05-2021 End: 01-10-2023 Alcohol intake Current non-drinker of alcohol (finding) [facility] Start: 05-22-2021 End: 01-22-2022 History SDOH Alcohol Frequency 1 [facility] Start: 05-22-2021 End: 01-22-2022 History SDOH Alcohol Std Drinks 98 [facility] Start: 05-22-2021 End: 01-22-2022 History SDOH Social Connections Phone 5 [facility] Start: 05-22-2021 End: 01-22-2022 History SDOH Social Connections Get Together 2 [facility] Start: 05-22-2021 End: 01-22-2022 History SDOH Social Connections Living 3 [facility] Start: 05-22-2021 History SDOH Financial 4 [facility] Start: 01-11-2019 Education 12 [facility] Start: 09-14-2016 End: 02-05-2022 Tobacco Comment Parents both smoked in childhood home. No household ETS since. [facility] Start: 1955 Sex Assigned At Female [facility] Work Phone: Start: 05-13-2021 End: 02-05-2022 Exposure to SARS-CoV-2 (event) Not sure [facility] Work Phone: Start: 08-15-2021 End: 08-25-2021 Exposure to SARS-CoV-2 (event) Unable to assess [facility] History of tobacco use Passive smoker [facility] Start: 01-22-2022 History SDOH Alcohol Std Drinks 0 [facility] Start: 01-22-2022 End: 07-12-2022 History of Social function [facility] Start: 01-22-2022 End: 07-12-2022 Social connection and isolation panel [facility] Do you belong to any clubs or organizations such as mormonism groups, unions, fraternal or athletic groups, or school groups? No [facility] Are you now , , , , never or living with a partner? [facility] How often to you hav e a drink containing alcohol? Never [facility] How many standard dr inks containing alcohol do you have on a typical day? Patient does not drink [facility] How hard is it for y ou to pay for the very basics like food, housing, medical care, and heating Somewhat hard [facility] Do you feel stress - tense, restless, nervous, or anxious, or unable to sleep at night because your mind is troubled all the time - these days [OSQ] To some extent [facility] (I/We) worried whedonald er (my/our) food would run out before (I/we) got money to buy more. Sometimes true [facility] The food that (I/we) bought just didn't last, and (I/we) didn't have money to get more. Never true [facility] Start: 09-05-2016 Gender identity Identifies as female gender (finding) [facility] Work Phone: Start: 09-05-2016 Sexual orientation Heterosexual (finding) [facility] Work Phone: Medical Equipment Procedure Code [...] WEIGHT - 109.5 - 02/11/23 scanned into [employer]. Haritha Chan documented in this encounter [facility] 02-11-2023 Miscellaneous Notes Called patient to see how they were doing with weight loss. Asked patient to have dialysis center fax a new dry weight to me. In addition told her that I would touch base with her at the end of March with the hopes of getting her presented. Dasha Miller RN February 11, 2023 1:45 PM documented in this encounter [facility] 01-22-2023 Miscellaneous Notes REMEDIOS 01/09/23 NOV [...] sent. Aleyda Cary documented in this encounter [facility] 01-17-2023 Miscellaneous Notes Spoke with patient who indicated she was cleared by Dr. Bey at [facility] for her EGD. Patient indicated she does not need appointment with Dr. Vargas and wishes to cancel at this time. Will get Dr. Bey to complete EGD clearance form. Appointment cancelled per patient's request. Dasha Hu, RN Patient states that she had an appointment at [facility] with Dr Lerner for EGD but was [...] is confused. Advised patient that maybe her congressional aide is sending her for cardiology clearance before the procedure. Patient states that she just had a cardiology clearance on 01/10/[address] Bey for a liver transplant. Patient is not sure why she needs to be seen by Dr. Vargas now. Please contact patient back at [phone]. documented in this encounter [facility] 01-17-2023 History of Present illness Narrative [facility] Telephonic Outreach Provider Action/FYI Contacted for: [...] daily weight at home? No Based on director nursery [employer], the following disposition is advised: No symptoms or symptoms present, not severe. Routed to: No Action Needed NOELLE Education Provided this Outreach: No Sienna Miller RN January 17, 2023 10:50 AM documented in this encounter [facility] 01-14-2023 Miscellaneous Notes Patient has been [...] Nell Lemons LPN. documented in this encounter [facility] 01-10-2023 Miscellaneous Notes Clearance form received and scanned into chart. Patient has appt with Dr. Vargas on 01/23 at 2:20. Lucrecia Villatoro documented in this encounter [facility] 01-10-2023 Note [facility] 01-10-2023 History of Present illness Narrative Images from the original note were not included. [facility] Department of Cardiovascular Medicine SECTION OF CLINICAL CARDIOLOGY OUTPATIENT VISIT DATE January 10, 2023 OUTPATIENT VISIT TYPE CONSULTATION PRIMARY CARE PHYSICIAN: Jame Hunt [address] [place] [address] REFERRING PHYSICIAN Kel Victoria 1979 Cristiano Lambert [facility] [address] CHIEF COMPLAINT: Preop Evaluation HISTORY OF PRESENT [...] CKD (chronic kidney disease) Dialysis M/W/F [facility] COPD (chronic obstructive pulmonary disease) (HCC) Diabetes [...] had complete hysterectomy Psoriasis and similar disorders [place] 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 No colitis. Poor rectal sphincter tone. Referred to Ori[facility]. COLONOSCOPY FLX DX W/COLLJ SPEC WHEN PFRMD 11/29/2011 [facility] Main /Dr. Anderson COLONOSCOPY FLX DX W/COLLJ SPEC WHEN PFRMD 07/2011 J[facility] COLONOSCOPY FLX DX W/COLLJ SPEC WHEN PFRMD 09/2011 Dr. Lagunas [facility] ESOPHAGOGASTRODUODENOSCOPY TRANSORAL DIAGNOSTIC 12/2009 [facility] Janneth ESOPHAGOGASTRODUODENOSCOPY TRANSORAL DIAGNOSTIC 12/2010 [facility] Janneth FISTULA HERNIA REPAIR HX 12/2008 incisional [...] CA Stroke Father Ischemic Heart Disease Father [place] age 70s Diabetes Mother age 76 other [...] mouth once daily. Blood-Glucose Meter,Continuous (DEXCOM G7 FINANCING ANALYST) misc Use to check blood sugar at [...] by others. CONTACT INFORMATION: Lizeth Bey MD, [facility] Section of Clinical Cardiology [place] [facility] Department of Cardiovascular Medicine [facility] [place] [facility] Desk J2-4 [facility] [place] [address] Office - [phone] extension [phone] Office Appointments: [phone] extension [phone] Voice recognition software was used in the creation of this document. There may be unintended errors in spelling, grammar, syntax or punctuation present. documented in this encounter [facility] 01-10-2023 Note [facility] 01-10-2023 History of Present illness Narrative NAME: Christina Guerrier [facility] NO: [id number] REFERRING PHYSICIAN: Kel Victoria PRESENTING COMPLAINT: Pre-kidney [...] 2023 5:39 PM documented in this encounter [facility] 01-09-2023 Note [facility] 01-09-2023 History of Present illness Narrative CC: Patient presents with: ED Follow-up HPI Christina Guerrier is a 67 year old female who presents today for ER follow-up. Facility: [facility] Er on both 12/26 and 12/31 for abdominal pain and vomiting. Was last seen in this office 12/27 for first ER visit. Had been having difficulty regulating blood sugars with her inability to eat and her insulin. Is on a lower dose of insulin at this time and denies any low blood sugars. Has an EGD in a few weeks at [facility] with Dr. Lerner as there is concern [...] she is requesting a refill on her Weston as it is flaring up and with [...] FLX DX W/COLLJ SPEC WHEN PFRMD 11/29/2011 [facility] Main /Dr. Anderson COLONOSCOPY FLX DX W/COLLJ SPEC WHEN PFRMD 07/2011 [facility] COLONOSCOPY FLX DX W/COLLJ SPEC WHEN PFRMD 09/2011 Dr. Lagunas [facility] ESOPHAGOGASTRODUODENOSCOPY TRANSORAL DIAGNOSTIC 12/2009 [facility] Janneth ESOPHAGOGASTRODUODENOSCOPY TRANSORAL DIAGNOSTIC 12/2010 [facility] Janneth FISTULA HERNIA REPAIR HX 12/2008 incisional [...] mouth once daily. Blood-Glucose Meter,Continuous (DEXCOM G7 FINANCING ANALYST) [facility] Use to check blood sugar at least [...] CA Stroke Father Ischemic Heart Disease Father [place] age 70s Diabetes Mother age 76 other [...] Aged Out DATA REVIEWED: Outside chart from [facility] reviewed. ASSESSMENT/PLAN: 1. Epigastric pain - ICD9: [...] suspicious activity was identified. 01/09/2023 by Silva Plasecnia APRN.CNP 4. Medication management - ICD9: V58.69, [...] Silva Plasencia APRN.CNP documented in this encounter [facility] 01-09-2023 Miscellaneous Notes Labs faxed to Dr Lerner office. Labs are in process Pt needs lab results that were drawn on 01/08/2023 to be faxed to Dr. Lerner/Dr. Maurer Phone # [phone] documented in this encounter [facility] 01-08-2023 Miscellaneous Notes Samanta with [facility] calls to request most recent labs be faxed to: [phone]. Results faxed as requested. Monica Carter LPN documented in this encounter [facility] 01-04-2023 Note [facility] 01-04-2023 History of Present illness Narrative Images from the original note were not included. Primary Care Pharmacy Visit CC (Reason for Consult): (E11.00, Z79.4) Type 2 diabetes mellitus with hyperosmolarity 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, with long-term current use of insulin ([facility]) Goal(s): A1c < 8% Last Collaborating Physician Visit: 12/27/22 Christina Guerrier is a 67 year old female presenting for follow up visit telephone call. Patient consents to pharmacy collaborative practice agreement. . At visit with ELECTRONIC ENGINEERING DRAFTSPERSON on 12/26 the following changes were made: instructed Decrease lantus to half dose if not consistently eating. Do NOT take the 25mg novolog if not eating and go by sliding scale only. At last visit with ELECTRONIC ENGINEERING DRAFTSPERSON on 12/27, was instructed that she may [...] finish the cans) Exercise: limited GLYCEMIC CONTROL: in3Dgallery CLARITY SHARE CODE - [id number] Past medical history reviewed. MEDICATIONS: Adherence: denies [...] once daily. 270 tablet 3 Blood-Glucose Meter,Continuous (DEXBango G7 FINANCING ANALYST) [facility] Use to check blood sugar at least [...] coma, with long-term current use of insulin ([facility]) - ICD9: 250.20, V58.67, ICD10: E11.00, [...] patient. interaction: telephonic time was 20 minutes. Electronically signed by Charlotte Gurrola [facility] at 01/04/2023 3:59 PM EDT documented in this encounter [facility] 12-27-2022 Note [facility] 12-27-2022 History of Present illness Narrative CC: Patient presents with: Recheck: ER follow up, abdominal pain HPI Christina Guerrier is a 67 year old female who presents today for ER follow-up. 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 No colitis. Poor rectal sphincter tone. Referred to [facility]. COLONOSCOPY FLX DX W/COLLJ SPEC WHEN PFRMD 11/29/2011 [facility] Main /Dr. Anderson COLONOSCOPY FLX DX W/COLLJ SPEC WHEN PFRMD 07/2011 Jann[facility] COLONOSCOPY FLX DX W/COLLJ SPEC WHEN PFRMD 09/2011 Dr. Lagunas [facility] ESOPHAGOGASTRODUODENOSCOPY TRANSORAL DIAGNOSTIC 12/2009 [facility] Janneth ESOPHAGOGASTRODUODENOSCOPY TRANSORAL DIAGNOSTIC 12/2010 [facility] Janneth FISTULA HERNIA REPAIR HX 12/2008 incisional [...] tablets by mouth once daily. Blood-Glucose Meter,Continuous (DEXBango G7 FINANCING ANALYST) [facility] Use to check blood sugar at least [...] CA Stroke Father Ischemic Heart Disease Father [place] age 70s Diabetes Mother age 76 other [...] Aged Out DATA REVIEWED: Outside chart from [facility] reviewed. ASSESSMENT/PLAN: 1. Nausea - ICD9: 787.02, [...] Silva Plasencia APRN.CNP documented in this encounter [facility] 12-26-2022 Note [facility] 12-24-2022 Miscellaneous Notes Letter sent to patient ness per her request. Please print and process Patient calls to request a letter for [employer]. Patient reports that she receives gas vouchers to get to doctor appointments here and at main campus. The letter needs to state that patient is an established patient with the [facility] and needs to be addressed to Poly Shafer at [employer]. Patient requests it be uploaded to when completed. Janelle Crocker RN documented in this encounter [facility] 12-20-2022 Note [facility] 12-20-2022 History of Present illness Narrative [...] daily weight at home? No Based on director [employer], the following disposition is advised: No symptoms or symptoms present, not severe. Routed to: No Action Needed NOELLE Education Provided this Outreach: No Sienna Miller, NIEVES December 20, 2022 1:27 PM documented in this encounter [facility] 12-03-2022 Note [facility] 11-26-2022 Note [facility] 11-26-2022 Note [facility] 11-26-2022 History of Present illness Narrative [...] CKD (chronic kidney disease) Dialysis M/W/F [facility] COPD (chronic obstructive pulmonary disease) (HCC) Diabetes [...] W/COLLJ SPEC WHEN PFRMD 09/2011 Dr. Lagunas [facility] ESOPHAGOGASTRODUODENOSCOPY TRANSORAL DIAGNOSTIC 12/2009 [facility] Janneth ESOPHAGOGASTRODUODENOSCOPY TRANSORAL DIAGNOSTIC 12/2010 [facility] Janneth FISTULA HERNIA REPAIR HX 12/2008 incisional [...] tablets by mouth once daily. Blood-Glucose Meter,Continuous (DEXBango G7 FINANCING ANALYST) [facility] Use to check blood sugar at least four (4) times daily. Blood-Glucose Sensor (in3Dgallery G7 SENSOR) brady Apply new sensor every [...] CA Stroke Father Ischemic Heart Disease Father [place] age 70s Diabetes Mother age 76 other [...] therapy advised. Pain control addressed (already has Weston rx from hip pain appt) Will be [...] Ramin Mack PA-C documented in this encounter [facility] 11-22-2022 Note [facility] 11-22-2022 History of Present illness Narrative [...] daily weight at home? No Based on director [employer], the following disposition is advised: No symptoms or symptoms present, not severe. Routed to: No Action Needed NOELLE Education Provided this Outreach: No Sienna Miller RN November 22, 2022 10:32 AM documented in this encounter [facility] 11-20-2022 Miscellaneous Notes REMEDIOS 11/07/22 NOV [...] Litzy Esparza Pss documented in this encounter [facility] 11-07-2022 Note [facility] 11-07-2022 Note [facility] 11-07-2022 Note [facility] 11-07-2022 History of Present illness Narrative [...] night and keeping her awake Treated with Weston, with minor relief of symptoms. REVIEW OF [...] W/COLLJ SPEC WHEN PFRMD 09/2011 Dr. Lagunas [facility] ESOPHAGOGASTRODUODENOSCOPY TRANSORAL DIAGNOSTIC 12/2009 [facility] Janneth ESOPHAGOGASTRODUODENOSCOPY TRANSORAL DIAGNOSTIC 12/2010 [facility] Janneth FISTULA HERNIA REPAIR HX 12/2008 incisional [...] Taking Mon, Sat and Sat before dialysis HYDROcodone-acetaminophen (NORCO) [...] mouth once daily. Blood-Glucose Meter,Continuous (DEXCOM G7 FINANCING ANALYST) misc Use to check blood sugar at [...] each sensor change. Blood-Glucose Meter,Continuous (DEXCOM G6 FINANCING ANALYST) misc Use to check blood sugar at [...] CA Stroke Father Ischemic Heart Disease Father [place] age 70s Diabetes Mother age 76 other [...] activity was identified. 11/07/2022 by Erin Plasencia APRN.ELECTRONIC ENGINEERING DRAFTSPERSON Follow-up and further recommendations pending results of [...] Erin Plasencia APRN.CNP documented in this encounter [facility] 11-07-2022 History of Present illness Narrative [...] 2022 11:14 AM documented in this encounter [facility] 10-28-2022 Miscellaneous Notes Pt was notified of the results. Pt verbalized understanding. Nasra Becerril MA Please advise patient that test results came back negative. Rash is not shingles. Should follow-up if signs and symptoms seem to be getting worse not better. documented in this encounter [facility] 10-27-2022 Note [facility] 10-27-2022 History of Present illness Narrative [...] history is provided by the patient. No rubbish collector was used. Rash Review of Systems Constitutional: [...] CKD (chronic kidney disease) Dialysis M/W/F [facility] COPD (chronic obstructive pulmonary disease) (HCC) Diabetes mellitus without mention of complication Diabetic polyneuropathy (HCC) 02/04/2017 Disorder of thyroid DVT (deep venous thrombosis) (HCC) Esophageal reflux Hammer toes, bilateral 11/30/2016 History of transfusion Hypertension Incisional hernia 12/30/2008 Liver replaced by transplant ([facility]) 2008 - Cirrhosis s/p OLT 2008 [...] W/COLLJ SPEC WHEN PFRMD 09/2011 Dr. Lagunas [facility] ESOPHAGOGASTRODUODENOSCOPY TRANSORAL DIAGNOSTIC 12/2009 [facility] Janneth ESOPHAGOGASTRODUODENOSCOPY TRANSORAL DIAGNOSTIC 12/2010 [facility] Janneth FISTULA HERNIA REPAIR HX 12/2008 incisional [...] mouth once daily. Blood-Glucose Meter,Continuous (DEXCOM G7 FINANCING ANALYST) [facility] Use to check blood sugar at least [...] each sensor change. Blood-Glucose Meter,Continuous (DEXCOM G6 FINANCING ANALYST) mis Use to check blood sugar at least four (4) times daily. Blood-Glucose Sensor (DEXCOM G6 SENSOR) brady Apply new sensor every ten (10) days to abdomen. FAMILY HISTORY Problem Relation Age of Onset Cancer Father age 73 lung CA Stroke Father Ischemic Heart Disease Father [place] age 70s Diabetes Mother age 76 other [...] Sandy Mendes APRN.NATHALY documented in this encounter [facility] 10-26-2022 Note [facility] 10-26-2022 History of Present illness Narrative [facility] Telephonic Outreach Provider Action/FYI Contacted for: [...] daily weight at home? No Based on director nursery school, the following disposition is advised: No symptoms or symptoms present, not severe. Routed to: No Action Needed NOELLE Education Provided this Outreach: No Sienna Miller RN October 26, 2022 1:27 PM documented in this encounter [facility] 10-26-2022 Note [facility] 10-23-2022 Miscellaneous Notes Pt. ret'd call and was r/s for 10/26/22. 1st attempt to reschedule. Called and lmom. Primary Care Pharmacy Rescheduling Outreach Call center, please contact patient and reschedule telephone and virtual visit for Diabetes management within ~4 week(s). (Visit length: 30 minutes) Thank you, Charlotte Gurrola RPh 10/22/2022 4:11 PM documented in this encounter [facility] 10-22-2022 Note [facility] 09-28-2022 Note [facility] 09-19-2022 Miscellaneous Notes Leighann from patients dialysis center calls in requesting to speak with a coordinator regarding her restrictions. Patient is saying that she cannot have any vinegar and they are questioning the reasoning why. She can be reached at [phone]. documented in this encounter [facility] 08-31-2022 Note [facility] 08-29-2022 Note [facility] 08-29-2022 Note [facility] 08-29-2022 History of Present illness Narrative [...] pounds in a week? No Based on director nursery school, the following disposition is advised: No symptoms or symptoms present, not severe. Routed to: No Action Needed NOELLE Education Provided this Outreach: No Dasha Colvin RN August 29, 2022 4:27 PM documented in this encounter [facility] 08-29-2022 Miscellaneous Notes Addended by: ERIN PLASENCIA on: 08/29/2022 05:36 PM Modules accepted: Orders documented in this encounter [facility] 08-28-2022 Note [facility] 08-28-2022 History of Present illness Narrative [facility] Telephonic Outreach Provider Essie/HARIKA Made call #1. Someone picked up phone and hung it up. End outreach Contacted for: Routine Telephonic Outreach Contact made with patient: No, left message. Someone answered and hung up. Dasha Colvin RN August 28, 2022 2:50 PM documented in this encounter [facility] 08-07-2022 Note [facility] 08-07-2022 History of Present illness Narrative [...] made: No medication changes made. At last Mobilligy message on 07/24/22, lowered insulin dose due [...] 270 tablet 3 Blood-Glucose Meter,Continuous (DEXCOM G7 FINANCING ANALYST) [facility] Use to check blood sugar at least [...] 1 Each 3 Blood-Glucose Meter,Continuous (DEXCOM G6 FINANCING ANALYST) [facility] Use to check blood sugar at least [...] coma, with long-term current use of insulin ([facility]) - ICD9: 250.20, V58.67, ICD10: E11.00, [...] PCP team follow up: 09/01/19 Charlotte Gurrola, Selena, BCACP Primary Care Clinical Pharmacist The majority of the pharmacy visit (> 50%) was spent counseling and/or coordinating care for the patient. interaction: telephonic time was 18 minutes. documented in this encounter [facility] 07-17-2022 Note [facility] 07-13-2022 Note [facility] 07-13-[address] - [...] dialysis RD 6. Consider calorie intake of 3340-4811 calories for weight loss (RMR - 300-500 calories) documented in this encounter [facility] 07-12-2022 Note [facility] 07-12-2022 Note [facility] 07-12-2022 History of Present illness Narrative [facility] Transplant Evaluation CC: Consultation for Kidney transplant evaluation. Referred by: Ricki Dc [address] [address] I will communicate with the referring provider [...] FLX DX W/COLLJ SPEC WHEN PFRMD 11/29/2011 [facility] Main /Dr. Anderson COLONOSCOPY FLX DX W/COLLJ SPEC WHEN PFRMD 07/2011 Janneth COLONOSCOPY FLX DX W/COLLJ SPEC WHEN PFRMD 09/2011 Dr. Lagunas [facility] ESOPHAGOGASTRODUODENOSCOPY TRANSORAL DIAGNOSTIC 12/2009 [facility] Janneth ESOPHAGOGASTRODUODENOSCOPY TRANSORAL DIAGNOSTIC 12/2010 [facility] Janneth FISTULA HERNIA REPAIR HX 12/2008 incisional [...] mouth once daily. Blood-Glucose Meter,Continuous (DEXCOM G7 FINANCING ANALYST) [facility] Use to check blood sugar at least [...] each sensor change. Blood-Glucose Meter,Continuous (DEXCOM G6 FINANCING ANALYST) [facility] Use to check blood sugar at least [...] CA Stroke Father Ischemic Heart Disease Father [place] age 70s Diabetes Mother age 76 other [...] a prior CC echocardiographic exam for comparison [facility]:04/04/2021 Impression: Severe disease of the proximal LAD [...] Other chronic findings, as above. PAP Test: [facility] Mammogram: 05/08/2022 IMPRESSION: NEGATIVE There is [...] Kel Victoria MD documented in this encounter [facility] 07-12-2022 Note [facility] 07-12-2022 History of Present illness Narrative [...] dialysis RD 6. Consider calorie intake of 3825-6541 calories for weight loss (RMR - 300-500 [...] likes at dialysis. It is sold on [employer] and she is gong to look into [...] burgers. Snack - frozen fruit Beverages - Tucker crush 0; water with pills; 1-2 boosts daily; Take Out: 2x/week: fish sandwich from [employer]. Alcohol- not assessed. Vitamins/Supplements - vitamin b [...] 11:23 AM PAGER: documented in this encounter [facility] 07-12-2022 Note [facility] 07-10-2022 Miscellaneous Notes Patient calls and notified that provider had sent hydrocortisone cream to [facility] pharmacy for itching. Patient voiced understanding. [...] time. Patient is requesting a script for [place] in place of the ultram. Christina Padmini Guerrier is calling Jame Hunt MD today with concern since being prescribed Tramadol she is having itching, stated on her back. Please call Patient. Patient has been identified by name and birthdate. Duration of symptoms: N/A Person calling: self Call patient at: on cell [phone] (home) [phone] (cell) Was an appointment scheduled: No Closing statement: Symptom Call: Thank you for calling [facility], your call is very important. A nurse will call in approximately 2-4 hours during business hours. If this is an emergency, please contact 911. Aleyda Mendoza Pss documented in this encounter [facility] 07-05-2022 Note [facility] 07-05-2022 History of Present illness Narrative [...] about Kidney Allocation Policy -Directions to access [facility]'s data through the SRTR website. -Informed Consent for Transplant Program Participation patient education packet -National Kidney Registry pamphlet -Covid-19 Vaccination for Transplant Candidates Method of Instruction: Group class instruction Verbal instruction Computer Patient/Family Response: Patient asked appropriate questions, which were answered satisfactorily. Follow-Up Plan: Contact information given. Referral/Recommendation: None Renetta Mendez RN Pre-Sap Treasury Consultant documented in this encounter [facility] 06-26-2022 Note [facility] 06-26-2022 History of Present illness Narrative [...] admits to missed doses Was traveling to [place] over the weekend and had some missed dose of insulin Has not started to use the sliding scale insulin with Novolog, taking 25 units with meals Continues to have intermittent connection with phone and sensor, Dexcom G7 was ordered and she is awaiting to hear from DME about approval Will be undergoing kidney transplant evaluation GLYCEMIC CONTROL: - Share code: [id number] CGM Report ROS: As above. Patient denies [...] 270 tablet 3 Blood-Glucose Meter,Continuous (DEXCOM G7 FINANCING ANALYST) [facility] Use to check blood sugar at least [...] 1 Each 3 Blood-Glucose Meter,Continuous (DEXCOM G6 FINANCING ANALYST) [facility] Use to check blood sugar at least [...] coma, with long-term current use of insulin ([facility]) - ICD9: 250.20, V58.67, ICD10: E11.00, [...] was 20 minutes. documented in this encounter [facility] 06-21-2022 Miscellaneous Notes Patient notified. Verbalized [...] for the weekend and would like to scrap picker [place]. Patient has been identified by [...] Date of last office visit with pcp: 3-29-23. Next appt: 08-31-22 Last 2 Encounter Wt [...] the preferred pharmacy. documented in this encounter [facility] 06-14-2022 Note [facility] 06-14-2022 History of Present illness Narrative [facility] Telephonic Outreach Provider Action/FYI Saw pcp on 05/30 Lost balance and [...] daily weight at home? No Based on director nursery school, the following disposition is advised: Symptoms present, not severe. Routed to: No Action Needed NOELLE Education Provided this Outreach: No Roxie Palmer RN June 14, 2022 2:38 PM documented in this encounter [facility] 06-12-2022 Miscellaneous Notes Patient requesting all her meds be sent to [facility] b/c they will send them to her home. Pended all accept the torsemide 20 mg 2 tabs daily- patient reports Dr. Dc, secondary special education teacher has been having her take 3 tabs daily to equal 60 mg daily for the past week. Asking pcp to write new rx and send to [facility]. Patient has been identified by name [...] Estefani Patel RN documented in this encounter [facility] 05-30-2022 Note [facility] 05-29-2022 Note [facility] 05-29-2022 Miscellaneous Notes Patient currently receives Dexcom G6 from DME ([facility]). She is interested in upgrading to the Dexcom G7 model. We discussed that Medicare only covers a new reader every 5 years but she may be able to get Dexcom G7 sensors to use with phone. [facility] DME needs printed orders for Dexcom G7 model. Please process pended orders as print rx. Once PCP has signed, please fax to [facility] at [phone]. Pending orders: Requested Prescriptions Pending Prescriptions Disp Refills Blood-Glucose Meter,Continuous (DEXCOM G7 FINANCING ANALYST) misc 1 Each 0 Sig: Use to check blood sugar at least four (4) times daily. Blood-Glucose Sensor (DEXCOM G7 SENSOR) brady 9 Each 3 Sig: Apply new sensor every ten (10) days. Charlotte Gurrola, PharmD, BCACP Primary Care Clinical Pharmacist Electronically signed by Charlotte Gurrola [facility] at 05/29/2022 3:19 PM EDT Patient asking message be sent to Charlotte: Reports she spoke with [facility] and they need Charlotte to send them a referral for the Dexcom G 7. Please phone patient with any questions. documented in this encounter [facility] 05-29-2022 History of Present illness Narrative Images from the original note were not included. Primary Care Pharmacy Visit CC (Reason for Consult): Diabetes Goal: A1c < 8% Collaborating Provider: Dr. Hunt Last Collaborating Physician/WORM PICKER Visit: 05/02/22 Christina Guerrier is a 66 [...] your physician GLYCEMIC CONTROL: - Share code: [id number] CGM Report Summary of CGM Findings: 1- [...] Dumont Rx coverage: [employer] HMO Medicare + [facility] Affordability: no issues Diabetes supplies: [employer] System: pill box ACTIVE PROBLEM LIST [...] (Hcc) Krueger's Palsy Coronary Artery Disease Involving [place] Coronary Artery of [place] Heart Without Angina Pectoris Stable Angina (Hcc) [...] Incisional hernia 12/30/2008 Liver replaced by transplant ([facility]) 2008 - Cirrhosis s/p OLT 2008 - Cirrhosis 04/05 [facility] Plan: - Continue Tacrolimus 1.5 mg BID - daily Tacrolimus levels - Continue Otezla 30 mg BID Lymphedema RAUL (obstructive sleep apnea) does not use CPAP Other and unspecified hyperlipidemia Other lymphedema runs in family PMH - PAST MEDICAL HISTORY OF 1998 endometrial cancer, had complete hysterectomy Psoriasis and similar disorders [place] 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 Blood-Glucose Meter,Continuous (DEXCOM G6 FINANCING ANALYST) [facility] Use to check blood sugar at least [...] microalbuminuria, with long-term current use of insulin ([facility]) - ICD9: 250.40, 791.0, V58.67, ICD10: [...] Instructed patient to check with her DME ([facility]) on when she can get her new Dexcom G7 reader approved by medicare Follow up: Patient is scheduled to see PCP team on 05/30/22. Patient to follow up with pharmD on 06/26/22. Patient verbalized understanding of instructions. Charlotte Gurrola, KayleighD, BCACP Primary Care Clinical Pharmacist The majority of the pharmacy visit (> 50%) was spent counseling and/or coordinating care for the patient. [Telephonic] time was 22 minutes. documented in this encounter [facility] 05-23-2022 Note [facility] 05-23-2022 Miscellaneous Notes Spoke to pt to let her know the orders have been placed for her evaluation and a mold technician should be contacting her within a week. I advised her to lose weight with her current BMI 42, she would not be able to be listed until 40. She said her ht is 5'6 not 5'4.5 . I said we would need to remeasure her as there are different hts in her chart documented in this encounter [facility] 05-23-2022 History of Present illness Narrative [...] appointment Renetta Mendez RN Pre-Kidney & Pancreas Sap Treasury Consultant [facility] documented in this encounter [facility] 05-17-2022 Note [facility] 05-16-2022 Miscellaneous Notes Patient has been [...] Litzy Esparza Pss documented in this encounter [facility] 05-14-2022 Note [facility] 05-14-2022 History of Present illness Narrative Images from the original note were not included. Primary Care Pharmacy Visit CC (Reason for Consult): Diabetes Goal: A1c < 8% Collaborating Provider: Dr. Hunt Last Collaborating Physician/WORM PICKER Visit: 05/02/22 Christina Guerrier is a 66 year old female presenting for follow up visit by telephone. Patient consents to pharmacy collaborative practice agreement. At last visit with ELECTRONIC ENGINEERING DRAFTSPERSON on 05/02/22 the following changes were made: [...] Adherence: denies missed doses Pharmacy: [facility] Rx coverage: [employer] HMO Medicare + [facility] Affordability: no issues Diabetes supplies: [employer] System: pill box ACTIVE PROBLEM LIST [...] (Hcc) Krueger's Palsy Coronary Artery Disease Involving [place] Coronary Artery of [place] Heart Without Angina Pectoris Stable Angina (Hcc) [...] Incisional hernia 12/30/2008 Liver replaced by transplant ([facility]) 2008 - 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 Plan: - Continue Tacrolimus 1.5 mg BID - daily Tacrolimus levels - Continue Otezla 30 mg BID Lymphedema RAUL (obstructive sleep apnea) does not use CPAP Other and unspecified hyperlipidemia Other lymphedema runs in family PMH - PAST MEDICAL HISTORY OF 1999 endometrial cancer, had complete hysterectomy Psoriasis and similar disorders [place] 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 Blood-Glucose Meter,Continuous (DEXCOM G6 FINANCING ANALYST) [facility] Use to check blood sugar at least [...] 41.60 kg/(m^2) LABS: ESRD on dialysis on [facility] Liver transplant list Lab Results Component [...] microalbuminuria, with long-term current use of insulin ([facility]) - ICD9: 250.40, 791.0, V58.67, ICD10: [...] was 25 minutes. documented in this encounter [facility] 05-08-2022 Note [facility] 05-08-2022 History of Present illness Narrative [...] 2022 7:28 AM documented in this encounter [facility] 05-03-2022 Note [facility] 05-03-2022 History of Present illness Narrative This is a virtual visit using Mobilligy video visit. 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 Lagunas [facility] ESOPHAGOGASTRODUODENOSCOPY TRANSORAL DIAGNOSTIC 12/2009 [facility] Janneth ESOPHAGOGASTRODUODENOSCOPY TRANSORAL DIAGNOSTIC 12/2010 [facility] Janneth FISTULA HERNIA REPAIR HX 12/2008 incisional [...] CA Stroke Father Ischemic Heart Disease Father [place] age 70s Diabetes Mother age 76 other [...] each sensor change. Blood-Glucose Meter,Continuous (DEXCOM G6 FINANCING ANALYST) [facility] Use to check blood sugar at least [...] which included preparing to see the patient, [id number] patient care, completing clinical documentation, obtaining and/or reviewing separately obtained history, performing a medically appropriate examination, counseling and educating the patient/family/caregiver, and ordering medications, tests, or procedures. Yesica Us PA-C May 03, 2022 11:37 AM documented in this encounter [facility] 05-02-2022 Miscellaneous Notes done Amber Jones RN, BSN Post Liver Sap Treasury Consultant Patient called she went to get labs Today and her labs are , requesting her Coordinator to Update the orders. documented in this encounter [facility] 05-02-2022 Note [facility] 05-02-2022 History of Present illness Narrative [...] has had a decreased appetite. Went to [facility] ER last week from dialysis for left shoulder pain with negative xrays and unremarkable lab work. Still with diarrhea has not seen GI yet and colestipol is on back order. Will have this 1-2 times a day pure liquid and will take immodium if needed. Sometimes will get a sharp pain to her right church with moving her head that is only [...] W/COLLJ SPEC WHEN PFRMD 09/2011 Dr. Lagunas [facility] ESOPHAGOGASTRODUODENOSCOPY TRANSORAL DIAGNOSTIC 12/2009 [facility] Janneth ESOPHAGOGASTRODUODENOSCOPY TRANSORAL DIAGNOSTIC 12/2010 [facility] Janneth FISTULA HERNIA REPAIR HX 12/2008 incisional [...] microalbuminuria, with long-term current use of insulin ([facility]) - Primary E11.29, R80.9, Z79.4^Disp: 6000 [...] 1 Each^Rfl: 3 Blood-Glucose Meter,Continuous (DEXCOM G6 FINANCING ANALYST) misc^Use to check blood sugar at least [...] CA Stroke Father Ischemic Heart Disease Father [place] age 70s Diabetes Mother age 76 other [...] Aged Out DATA REVIEWED: Outside chart from [facility] reviewed. ASSESSMENT/PLAN: 1. Type 2 diabetes mellitus [...] Silva Plasencia APRN.CNP documented in this encounter [facility] 04-24-2022 Miscellaneous Notes Called and spoke with patient regarding kidney transplant, intake completed, and to nurse coordinator for review. Haritha Chan Pre- transplant intake form Date: 04/24/2022 Spoke with: Patient : 1955 EMAIL: [employer] M/F: F Work Status: Not working; [...] Previous Transplant? Yes Date/Where at? 05/05/2008 at [facility] Nephrectomy? No Evaluation elsewhere? Listed? Yes at [facility]; No Kidney Biopsy? Liver Biopsy? No Yes - on txp at [facility] Cirrhosis? Hepatitis? HIV? Cancer? Yes - [place] before Txp No No Yes-1998 Uterus and Cervix; had full hysterectomy; No chemo or radiation Diabetes 1 or 2? 2 Age diagnosed? 2007 Insulin dependent? Yes Hypoglycemic unawareness? No Hypertension? CAD? [place]? CABG/STENTS? Yes No No Yes - Hrt Stents 3x - in 2021 at [facility]. Stress? Echo? Cath? Yes Yes Yes [...] office. Haritha Chan documented in this encounter [facility] 04-20-2022 Note [facility] 04-20-2022 History of Present illness Narrative [...] like to speak with a social work retail sales teammate to help give you support for any [...] you up for automated weekly questionnaires through Mobilligy. This is an easy way for us [...] and End outreach. documented in this encounter [facility] 04-19-2022 Note [facility] 04-19-2022 History of Present illness Narrative INSIGHT [facility] TELEPHONIC OUTREACH Provider Action/FYI: voicemail Contact made with patient: No - Left message Tierney my name is Roxie Palmer RN your Histopath Tech from the [facility] I am calling today for your monthly check in. I am sorry I missed your call. I will reach out to you again tomorrow. Enter next patient outreach date using the Track Pt Outreach. End outreach. documented in this encounter [facility] 04-19-2022 Miscellaneous Notes Patient has been [...] microalbuminuria, with long-term current use of insulin ([facility]) - Primary E11.29, R80.9, Z79.4 Date of last office visit in primary care: 09/07/2021 Please advise. Thank you. Beth Pedersen LPN documented in this encounter [facility] 03-19-2022 Miscellaneous Notes Patient has been [...] Franci Quinn LPN documented in this encounter [facility] 02-22-2022 History of Present illness Narrative [...] like to speak with a social work retail sales teammate to help give you support for any [...] you up for automated weekly questionnaires through Mobilligy. This is an easy way for us [...] Track Pt Outreach and End outreach. INSIGHT [facility] TELEPHONIC OUTREACH Provider Action/FYI: voicemail Contact made with patient: No - Left message Tierney my name is Roxie Palmer RN your Histopath Tech from the [facility] I am calling today for your monthly check in. I am sorry I missed your call. I will reach out to you again tomorrow. Enter next patient outreach date for the following business day using the Track Pt Outreach. End outreach. documented in this encounter [facility] 02-09-2022 Miscellaneous Notes Patient went to [...] Janelle Crocker RN documented in this encounter [facility] 02-05-2022 Miscellaneous Notes Patient came into office for OV and was treated. Franci Quinn LPN Christina Gurerier is calling Jame Hunt MD today with concern regarding chronic itching on her back, no rash; OTC creams not helping; she is at dialysis and they even gave her Benadryl and nothing is helping. Please call her. Patient has been identified by name and birthdate. Duration of symptoms: N/A Person calling: self Call patient at: on cell [phone] (home) [phone] (cell) Was an appointment scheduled: No Closing statement: Symptom Call: Thank you for calling [facility], your call is very important. A nurse will call in approximately 2-4 hours during business hours. If this is an emergency, please contact 911. 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 Lagunas [facility] ESOPHAGOGASTRODUODENOSCOPY TRANSORAL DIAGNOSTIC 12/2009 [facility] Janneth ESOPHAGOGASTRODUODENOSCOPY TRANSORAL DIAGNOSTIC 12/2010 [facility] Janneth FISTULA HERNIA REPAIR HX 12/2008 incisional [...] CA Stroke Father Ischemic Heart Disease Father [place] age 70s Diabetes Mother age 76 other [...] G6 TRANSMITTER) brady Blood-Glucose Meter,Continuous (DEXCOM G6 FINANCING ANALYST) misc Blood-Glucose Sensor (DEXCOM G6 SENSOR) brady [...] Jame Hunt MD documented in this encounter [facility] 02-01-2022 Miscellaneous Notes Pt notified and voiced understanding. Marilee Telles MA Please let patient know I have ordered this, but with her kidney function and dialysis she should be on half the normal dose. I have ordered as such. Thank you Silav Plasencia APRN.NATHALY Patient calling asking for a refill of hydroxyzine. This medication is not listed on her current medication list. Patient uses pharmacy on file. Please advise. documented in this encounter [facility] 01-29-2022 History of Present illness Narrative [...] tylenol and diclofenac gel without any help. [place] helps when pain is severe. 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 Lagunas [facility] ESOPHAGOGASTRODUODENOSCOPY TRANSORAL DIAGNOSTIC 12/2009 [facility] Janneth ESOPHAGOGASTRODUODENOSCOPY TRANSORAL DIAGNOSTIC 12/2010 [facility] Janneth FISTULA HERNIA REPAIR HX 12/2008 incisional [...] microalbuminuria, with long-term current use of insulin ([facility]) - Primary E11.29, R80.9, Z79.4^Disp: ^Rfl: [...] 1 Each^Rfl: 3 Blood-Glucose Meter,Continuous (DEXCOM G6 FINANCING ANALYST) misc^Use to check blood sugar at least [...] CA Stroke Father Ischemic Heart Disease Father [place] age 70s Diabetes Mother age 76 other [...] Silva Plasencia APRN.CNP documented in this encounter [facility] 01-26-2022 History of Present illness Narrative INSIGHT CDM TELEPHONIC OUTREACH Provider Action/FYI: Cramping in her hands happens frequently-no difference in dialysis days or non-dialysis days Sometimes hard to scrap picker a jug of milk Using arthritis [...] like to speak with a social work retail sales teammate to help give you support for any [...] you up for automated weekly questionnaires through Mob[employer]. This is an easy way for us [...] and End outreach. documented in this encounter [facility] 01-24-2022 Miscellaneous Notes Patient called to request the medication again. Remedios--01/01/22 Nov--01/29/22 Last refill--10/20/21 60 with 2 refills Last labs--01/16/22 documented in this encounter [facility] 01-01-2022 History of Present illness Narrative INSIGHT CDM TELEPHONIC OUTREACH Provider Action/FYI: 2nd attempt, left another message Contact made with patient: No - Left message Helgeorge my name is Roxie Palmer RN your Histopath Tech from the [facility] I am calling today for your monthly check in. I am sorry I missed your call. I will reach out to you again next month. End outreach. 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 No colitis. Poor rectal sphincter tone. Referred to [facility]. COLONOSCOPY FLX DX W/COLLJ SPEC WHEN PFRMD 11/29/2011 [facility] Main /Dr. Anderson COLONOSCOPY FLX DX W/COLLJ SPEC WHEN PFRMD 07/2011 Jann[facility] COLONOSCOPY FLX DX W/COLLJ SPEC WHEN PFRMD 09/2011 Dr. Lagunas [facility] ESOPHAGOGASTRODUODENOSCOPY TRANSORAL DIAGNOSTIC 12/2009 [facility] Janneth ESOPHAGOGASTRODUODENOSCOPY TRANSORAL DIAGNOSTIC 12/2010 [facility] Janneth FISTULA HERNIA REPAIR HX 12/2008 incisional [...] microalbuminuria, with long-term current use of insulin ([facility]) - Primary E11.29, R80.9, Z79.4^Disp: ^Rfl: [...] 1 Each^Rfl: 3 Blood-Glucose Meter,Continuous (DEXCOM G6 FINANCING ANALYST) [facility]^Use to check blood sugar at least four (4) times daily.^Disp: 1 Each^Rfl: 0 Blood-Glucose Sensor (DEXCOM G6 SENSOR) brady^Apply new sensor every ten (10) days to abdomen.^Disp: 9 Each^Rfl: 3 triamcinolone acetonide (KENALOG) 0.1 % ointment^Apply to affected area twice daily.^Disp: ^Rfl: melatonin 5 mg tablet^Take 10 mg by mouth daily at bedtime.^Disp: ^Rfl: Insulin Syringe-Needle U-100 0.5 mL 31 gauge x 07/17 ^Use to inject insulin 5 times daily [...] CA Stroke Father Ischemic Heart Disease Father [place] age 70s Diabetes Mother age 76 other [...] Silva Plasencia APRN.CNP documented in this encounter [facility] 12-29-2021 History of Present illness Narrative INSIGHT CD TELEPHONIC OUTREACH Provider Action/FYI: voicemail Contact made with patient: No - Left message Hello my name is Roxie Palmer RN your Histopath Tech from the [facility] I am calling today for your monthly check in. I am sorry I missed your call. I will reach out to you again tomorrow. Enter next patient outreach date for the following business day using the Track Pt Outreach. End outreach. documented in this encounter [facility] 12-13-2021 Miscellaneous Notes Patient notified and [...] review for improvement. Thank you Silva Plasencia APRN.ELECTRONIC ENGINEERING DRAFTSPERSON documented in this encounter [facility] 12-12-2021 Miscellaneous Notes Patient has been [...] Nell Lemons LPN documented in this encounter [facility] 12-11-2021 History of Present illness Narrative CC: Patient presents with: Recheck: Hosp follow up hyperkalemia HPI Christina Guerrier is a 66 year old female who presents today for Hospital follow-up. Facility: [facility] Date of visit: 12/07/21-12/08/21 Reason for visit: [...] FLX DX W/COLLJ SPEC WHEN PFRMD 11/29/2011 [facility] Main /Dr. Anderson COLONOSCOPY FLX DX W/COLLJ SPEC WHEN PFRMD 07/2011 Jann[facility] COLONOSCOPY FLX DX W/COLLJ SPEC WHEN PFRMD 09/2011 Dr. Lagunas [facility] ESOPHAGOGASTRODUODENOSCOPY TRANSORAL DIAGNOSTIC 12/2009 [facility] Janneth ESOPHAGOGASTRODUODENOSCOPY TRANSORAL DIAGNOSTIC 12/2010 [facility] Janneth FISTULA HERNIA REPAIR HX 12/2008 incisional [...] microalbuminuria, with long-term current use of insulin ([facility]) - Primary E11.29, R80.9, Z79.4^Disp: ^Rfl: [...] 1 Each^Rfl: 3 Blood-Glucose Meter,Continuous (DEXCOM G6 FINANCING ANALYST) misc^Use to check blood sugar at least [...] CA Stroke Father Ischemic Heart Disease Father [place] age 70s Diabetes Mother age 76 other [...] Aged Out DATA REVIEWED: Outside chart from [facility] reviewed. ASSESSMENT/PLAN: 1. History of recent hospitalization [...] with more than 50% of the total [id number] time of the visit in counseling / coordination of care. documented in this encounter [facility] 12-04-2021 History of Present illness Narrative INSIGHT CDM TELEPHONIC OUTREACH Provider Action/FYI: 2nd attempt, left another message Contact made with patient: No - Left message Tierney my name is Roxie Palmer RN your Histopath Tech from the [facility] I am calling today for your bi-weekly check in. I am sorry I missed your call. I will reach out to you again tomorrow. (if the third call I will reach out to you again next week) Enter next patient outreach date for the following business day using the Track Pt Outreach. End outreach. documented in this encounter [facility] 12-01-2021 History of Present illness Narrative INSIGHT [facility] TELEPHONIC OUTREACH Provider Action/FYI: voicemail Contact made with patient: No - Left message Hello my name is Roxie Palmer RN your Histopath Tech from the [facility] I am calling today for your bi-weekly check in. I am sorry I missed your call. I will reach out to you again tomorrow. (if the third call I will reach out to you again next week) Enter next patient outreach date for the following business day using the Track Pt Outreach. End outreach. documented in this encounter [facility] 11-07-2021 History of Present illness Narrative INSIGHT [facility] TELEPHONIC OUTREACH Provider Action/FYI: 2nd attempt No answer/voicemail not set up Unable to leave message Contact made with patient: No - Unable to leave message Entered next patient outreach date for the following business day, if third call please enter next outreach date for one week in the Track Pt. Outreach - End Outreach documented in this encounter [facility] 11-03-2021 History of Present illness Narrative INSIGHT [facility] TELEPHONIC OUTREACH Provider Action/FYI: No answer/voicemail not set up Contact made with patient: No - Unable to leave message Entered next patient outreach date for the following business day, if third call please enter next outreach date for one week in the Track Pt. Outreach - End Outreach documented in this encounter [facility] 11-02-2021 History of Present illness Narrative [...] on 10/12, lunchtime Novolog was increased. At ELECTRONIC ENGINEERING DRAFTSPERSON visit on 10/20, patient seen for ear pain and vaginal/rectal bleeding, and on 10/22 patient hospitalized for GI bleed. Subjective: HPI: Patient reports she only has 1 Dexcom sensor left. She gets supplies through [facility]. States her Dexcom keeps alerting her [...] missed doses [facility] Affordability: no issues Diabetes supplies: Little Borrowed Dress System: pill box ACTIVE PROBLEM LIST WOUND [...] (Hcc) Krueger's Palsy Coronary Artery Disease Involving [place] Coronary Artery of [place] Heart Without Angina Pectoris Stable Angina (Hcc) [...] Insulin: yes supplies Blood-Glucose Meter,Continuous (DEXCOM G6 FINANCING ANALYST) [facility] Use to check blood sugar at least [...] microalbuminuria, with long-term current use of insulin ([facility]) - Primary E11.29, R80.9, Z79.4 insulin [...] ALT 25 10/20/2021 ESRD on dialysis on [facility] Liver transplant list Lab Results Component [...] microalbuminuria, with long-term current use of insulin ([facility]) - ICD9: 250.40, 791.0, V58.67, ICD10: [...] the dose of Novolog Advised to call [facility] Medical to request refill of CGM sensors; phone number provided 2. Medication management - ICD9: V58.69, ICD10: Z79.899 Reviewed all medications, indications, dosing, frequency, administration with patient. Medication list updated as described above. Patient is scheduled to see ELECTRONIC ENGINEERING DRAFTSPERSON on 01/04. Patient to have PharmD f/u on 12/07. Patient verbalized understanding of instructions. Kim La PharmD, [facility] Primary Care Clinical Pharmacist The majority of the pharmacy visit (> 50%) was spent counseling and/or coordinating care for the patient. interaction: telephonic time was 30 minutes. 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 Lagunas [facility] ESOPHAGOGASTRODUODENOSCOPY TRANSORAL DIAGNOSTIC 12/2009 [facility] Janneth ESOPHAGOGASTRODUODENOSCOPY TRANSORAL DIAGNOSTIC 12/2010 [facility] Janneth FISTULA HERNIA REPAIR HX 12/2008 incisional [...] CA Stroke Father Ischemic Heart Disease Father [place] age 70s Diabetes Mother age 76 other [...] mouth once daily. Blood-Glucose Meter,Continuous (DEXCOM G6 FINANCING ANALYST) misc Use to check blood sugar at [...] - Work up with Ultrasound transvaginal - Mobile low residue diet - Treatment for constipation discussed RTO as needed to follow-up with PCP team. Prescription instructions reviewed with patient as applicable. Potential red flag symptoms discussed with the patient. Reviewed appropriate action plan to take if red flag symptoms occur. Patient agreeable to treatment plan. Jaci Lucero APRN.NATHALY [address] [place] [address] documented in this encounter [facility] 10-12-2021 History of Present illness Narrative [...] with cellulitis and went to ED. Saw NATHALY on 09/28 for ER f/up and no [...] popcorn (white cheddar) Beverages: fluid restriction, usually Tucker Crush Zero, 1 can daily; chews ice MEDICATIONS: Pill bottles are not present Adherence: denies missed doses Pharmacy: [facility] Rx coverage: [employer] [facility] Medicare + [facility] Affordability: no issues Diabetes supplies: Little Borrowed Dress System: pill box ACTIVE PROBLEM LIST WOUND [...] (Hcc) Krueger's Palsy Coronary Artery Disease Involving [place] Coronary Artery of [place] Heart Without Angina Pectoris Stable Angina (Hcc) [...] alcohol CKD (chronic kidney disease) Dialysis M/W/F [facility] COPD (chronic obstructive pulmonary disease) (HCC) Diabetes [...] had complete hysterectomy Psoriasis and similar disorders [place] 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 Liver transplant list Lab Results Component [...] microalbuminuria, with long-term current use of insulin ([facility]) - ICD9: 250.40, 791.0, V58.67, ICD10: [...] due now Patient is scheduled to see ELECTRONIC ENGINEERING DRAFTSPERSON on 01/04. Patient to have PharmD f/u on 11/02. Patient verbalized understanding of instructions. Kim La PharmD, [facility] Primary Care Clinical Pharmacist The majority of the pharmacy visit (> 50%) was spent counseling and/or coordinating care for the patient. interaction: telephonic time was 28 minutes. documented in this encounter [facility] 10-09-2021 History of Present illness Narrative [...] like to speak with a social work retail sales teammate to help give you support for any [...] you up for automated weekly questionnaires through [employer]. This is an easy way for us [...] and End outreach. documented in this encounter [facility] 09-28-2021 Miscellaneous Notes Patient stopped by [...] have patient manually download the reader to DexcomClarity online prior to next PharmD visit. Kim La PharmD, [facility] Primary Care Clinical Pharmacist Cathryn LEA [facility] documented in this encounter [facility] 09-28-2021 History of Present illness Narrative [...] current concerns. 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 Lagunas [facility] ESOPHAGOGASTRODUODENOSCOPY TRANSORAL DIAGNOSTIC 12/2009 [facility] Janneth ESOPHAGOGASTRODUODENOSCOPY TRANSORAL DIAGNOSTIC 12/2010 [facility] Janneth FISTULA HERNIA REPAIR HX 12/2008 incisional [...] each sensor change. Blood-Glucose Meter,Continuous (DEXCOM G6 FINANCING ANALYST) [facility] Use to check blood sugar at least [...] [place] Stroke Father Ischemic Heart Disease Father [place] age 70s Diabetes Mother age 76 other [...] Aged Out DATA REVIEWED: Outside chart from [facility] reviewed. ASSESSMENT/PLAN: 1. Lump of right thigh [...] Silva Plasencia APRN.CNP documented in this encounter [facility] 09-26-2021 Miscellaneous Notes REMEDIOS: 08/31/2021 Last refill: 04/19/2021 QTY: 60 Refills: 5 Patient's request for medication is as follows: Pending Prescriptions Disp Refills TRAZODONE 100 MG TABLET 60 tablet 5 Sig: Take 2 tablets by mouth daily at bedtime. JHON: No Please approve the above prescription(s) to electronically send to pharmacy. Jaden Yadav Ma documented in this encounter [facility] 09-21-2021 History of Present illness Narrative [...] TIME: 10:49 AM documented in this encounter [facility] 09-11-2021 Miscellaneous Notes Reason for Call: [...] and will have family take her to [facility] Reason for Disposition Blood glucose > [...] N/A Protocols used: DIABETES - HIGH BLOOD [id number] documented in this encounter [facility] 09-11-2021 History of Present illness Narrative [facility] CDM Enrollment Provider Action/FYI: Returned call Patient referred by: [facility] Osei Contact made with patient: Yes - Patient identified by name and . Discussed care with patient Tierney this is Roxie Palmer RN and I am calling from Jame Hunt MD office at the [facility]. I am a RN Histopath Tech with our [facility] Chronic Disease Management program. [...] few questions once a week through your Mob[employer]ig[employer] account. It will automatically show up for [...] stressful. Can we connect you with a [facility] Health Refrigerator Room Clerk to find a program that could help [...] Provider Action/FYI: ckd voicemail Patient referred by: [facility] Osei Contact made with patient: No - Left Message: Hi my name is Roxie Palmer RN and I am calling from the [facility] on behalf of your PCP, Jame Hunt MD. We are excited to share with you a new program to help you manage your health. Please call me back at [phone] between the hours of 8am-5pm Saturday-Saturday. You will receive another phone call from me within the next two business days. I hope you can take the time to speak with me. (Keep encounter open and attempt 2nd outreach in two business days from today) END OUTREACH documented in this encounter [facility] 09-07-2021 Miscellaneous Notes Images from the original note were not included. Approved Prior authorization approved Payer: [employer] [phone] EDUIN Case: [id number], Status: Approved, Coverage Starts on: 09/07/2021 1:53:39 PM, Coverage Ends on: 09/07/2021 1:53:39 PM. Questions? Contact . Approval Details Authorized from September 07, 2021 to September 07, 2021 Electronic PA completed for insulin aspart unit(s) 100(novolog U100 insulin aspart) documented in this encounter [facility] 09-07-2021 Miscellaneous Notes Noted. The following approved medication requests have been transmitted electronically. Signed Prescriptions Disp Refills insulin aspart U-100 (NOVOLOG U-100 INSULIN ASPART) 100 unit/mL 6 Vial 3 Sig: Inject 22 Units subcutaneously three times daily before meals. Type 2 diabetes mellitus with microalbuminuria, with long-term current use of insulin ([facility]) - Primary E11.29, R80.9, Z79.4 JHON: No Authorizing Provider: JAME HUNT Ordering User: KIM LA [facility] pharmacy calling with request for new script for Novolog Insulin with diagnosis code on script for Medicare billing. Amadeo Mar RN documented in this encounter [facility] 09-07-2021 History of Present illness Narrative [...] for cellulitis on right leg. At last ELECTRONIC ENGINEERING DRAFTSPERSON appt, cellulitis appeared to be resolved but [...] [facility] Rx coverage: [employer] HMO Medicare + [facility] Affordability: no issues Diabetes supplies: Little Borrowed Dress System: pill box ACTIVE PROBLEM LIST WOUND [...] (Hcc) Krueger's Palsy Coronary Artery Disease Involving [place] Coronary Artery of [place] Heart Without Angina Pectoris Stable Angina (Hcc) [...] CKD (chronic kidney disease) Dialysis M/W/F [facility] COPD (chronic obstructive pulmonary disease) (HCC) Diabetes [...] had complete hysterectomy Psoriasis and similar disorders [place] 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 Patient is scheduled to see ELECTRONIC ENGINEERING DRAFTSPERSON on 09/28. Patient to have PharmD f/u on 10/12. Patient verbalized understanding of instructions. Kim La PharmD, [facility] Primary Care Clinical Pharmacist Julia Gu [facility] The majority of the pharmacy visit (> 50%) was spent counseling and/or coordinating care for the patient. interaction: face to face time was 28 minutes. documented in this encounter [facility] 09-06-2021 Miscellaneous Notes Pt called and [...] Janelle Crocker RN documented in this encounter [facility] 09-06-2021 Miscellaneous Notes Fashism message sent to patient. It seems like [...] of office today. Patient phone number is [phone]. Please advise 09/05/2021 8:05 AM - Radiology, Oru In Impression IMPRESSION: Nonspecific intramuscular hypoechoic lesion. Possibly, this is an organizing hematoma and correlation to any history of recent trauma is suggested. Either follow-up examinations or MRI could be considered for further assessment. Hide Or Skin Buffer: BRET Transcribe Date/Time: Sep 05 2021 8:02A [...] some internal fluid. 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 No colitis. Poor rectal sphincter tone. Referred to Oriana Newberry. COLONOSCOPY FLX DX W/COLLJ SPEC WHEN PFRMD 11/29/2011 [facility] Main /Dr. Anderson COLONOSCOPY FLX DX W/COLLJ SPEC WHEN PFRMD 07/2011 Janneth COLONOSCOPY FLX DX W/COLLJ SPEC WHEN PFRMD 09/2011 Dr. Lagunas [facility] ESOPHAGOGASTRODUODENOSCOPY TRANSORAL DIAGNOSTIC 12/2009 [facility] Janneth ESOPHAGOGASTRODUODENOSCOPY TRANSORAL DIAGNOSTIC 12/2010 [facility] Janneth FISTULA HERNIA REPAIR HX 12/2008 incisional [...] each sensor change. 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 Plan: - Continue Tacrolimus 1.5 mg BID - daily Tacrolimus levels - Continue Otezla 30 mg BID Lymphedema RAUL (obstructive sleep apnea) does not use CPAP Other and unspecified hyperlipidemia Other lymphedema runs in family PMH - PAST MEDICAL HISTORY OF 1998 endometrial cancer, had complete hysterectomy Psoriasis and similar disorders [place] 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 No colitis. Poor rectal sphincter tone. Referred to Oriana Newberry. COLONOSCOPY FLX DX W/COLLJ SPEC WHEN PFRMD 11/29/2011 [facility] Main /Dr. Anderson COLONOSCOPY FLX DX W/COLLJ SPEC WHEN PFRMD 07/2011 Janneth COLONOSCOPY FLX DX W/COLLJ SPEC WHEN PFRMD 09/2011 Dr. Lagunas [facility] ESOPHAGOGASTRODUODENOSCOPY TRANSORAL DIAGNOSTIC 12/2009 [facility] Janneth ESOPHAGOGASTRODUODENOSCOPY TRANSORAL DIAGNOSTIC 12/2010 [facility] Janneth FISTULA HERNIA REPAIR HX 12/2008 incisional [...] each sensor change. Blood-Glucose Meter,Continuous (DEXCOM G6 FINANCING ANALYST) [facility] Use to check blood sugar at least [...] CA Stroke Father Ischemic Heart Disease Father [place] age 70s Diabetes Mother age 76 other [...] Silva Plasencia APRN.CNP documented in this encounter [facility] 08-21-2021 History of Present illness Narrative POPULATION HEALTH NAVIGATION OUTREACH Action/I Patient Outreach: [facility] - Spoke with patient to schedule [...] Care Gap or Scheduling/Wellness visits Payer: Payor: [employer] MEDICARE / Plan: MD [employer] PLUS / Product Type: HMO / Care Gap Reviewed:: Follow-up appointment Reminder: Reminder note to check Health Maintenance for items below Health Maintenance items due: SHINGRIX VACCINE(1 of 2) Never done PAP TESTING due on 03/05/2020 Message Sent to Practice: No Navigation Signature: Haritha Cary August 21, 2021 5:00 PM documented in this encounter [facility] 08-14-2021 Miscellaneous Notes forms completed and faxed on 08/09/2021. Franci Quinn LPN Forms received and placed papers on providers desk. Franci Quinn LPN Ok noted. Jasmina from [facility] [employer] [facility] calling she will be faxing Power chair forms back to office with on cover sheet what needs to be fixed on the forms. Please advise documented in this encounter [facility] 08-14-2021 History of Present illness Narrative [...] evening of Saturday she did go to [facility], her covid and flu was negative [...] Anemia in stage 4 chronic kidney disease ([facility]) 12/17/2016 Anemia of chronic kidney failure, stage 4 (severe) ([facility]) 12/11/2016 Anxiety Arthritis Krueger's palsy CAD (coronary artery disease) Cancer (HCC) uterine and cervical Celiac disease 2007 Cellulitis of back except buttock Cirrhosis of liver without mention of alcohol CKD (chronic kidney disease) Dialysis M/W/F [facility] COPD (chronic obstructive pulmonary disease) ([facility]) Diabetes mellitus without mention of complication Diabetic polyneuropathy ([facility]) 02/04/2017 Disorder of thyroid DVT (deep venous thrombosis) ([facility]) Esophageal reflux Hammer toes, bilateral 11/30/2016 History of transfusion Hypertension Incisional hernia 12/30/2008 Liver replaced by transplant ([facility]) 2008 - Cirrhosis s/p OLT 2008 [...] W/COLLJ SPEC WHEN PFRMD 09/2011 Dr. Lagunas [facility] ESOPHAGOGASTRODUODENOSCOPY TRANSORAL DIAGNOSTIC 12/2009 [facility] Janneth ESOPHAGOGASTRODUODENOSCOPY TRANSORAL DIAGNOSTIC 12/2010 [facility] Janneth FISTULA HERNIA REPAIR HX 12/2008 incisional [...] CA Stroke Father Ischemic Heart Disease Father [place] age 70s Diabetes Mother age 76 other [...] G6 TRANSMITTER) brady Blood-Glucose Meter,Continuous (DEXCOM G6 FINANCING ANALYST) misc Blood-Glucose Sensor (DEXCOM G6 SENSOR) brady [...] Jame Hunt MD documented in this encounter [facility] 08-09-2021 Miscellaneous Notes Form completed and faxed. Franci Quinn LPN I addeded ,my notes please addend your office note per Charlotte , see below Noted. Thank you for all of your help with this. Thank you Silva Plasencia APRN.ELECTRONIC ENGINEERING DRAFTSPERSON Thanks for reaching out to patient Franci. Dr. Hunt, can you please addend your last office visit note with the information below from patient. Thanks, Charlotte Gurrola PharmD, BCACP Primary Care Clinical Pharmacist [facility] Electronically signed by Charlotte Gurrola [facility] at 05/25/2021 9:52 AM EDT Patient takes insulin: Novolog unit(s)-100 3 times [...] Gurrola PharmD, BCACP Primary Care Clinical Pharmacist [facility] Patient is interested in getting the [place] and may need a follow up appointment. Please advise documented in this encounter [facility] 08-03-2021 Miscellaneous Notes Pt would like these medications reordered. Correct pharmacy verified on order. Pending Prescriptions Disp Refills ASPIRIN 81 MG CHEWABLE TABLET Sig: Take 4 tablets by mouth once daily. JHON: No documented in this encounter [facility] 07-24-2021 History of Present illness Narrative Charbel Esparza MD Department of Orthopaedics Orthopaedics [address] [facility] [address] Dept: [phone] Dept July 24, 2021 Consultation requested by [...] be appropriate. FOLLOW UP INSTRUCTIONS: As needed Lesley Christina Guerrier was advised as to contrast [...] IMPRESSION: Osteoarthrosis. No evidence of inflammatory arthropathy. Hide Or Skin Buffer: [facility] Transcribe Date/Time: Jul 03 2021 4:57P Dictated [...] mellitus without mention of complication Diabetic polyneuropathy ([facility]) 02/04/2017 Disorder of thyroid DVT (deep venous thrombosis) ([facility]) Esophageal reflux Hammer toes, bilateral 11/30/2016 History of transfusion Hypertension Incisional hernia 12/30/2008 Liver replaced by transplant ([facility]) 2008 - 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 Plan: - Continue Tacrolimus 1.5 mg BID - daily Tacrolimus levels - Continue Otezla 30 mg BID Lymphedema RAUL (obstructive sleep apnea) does not use CPAP Other and unspecified hyperlipidemia Other lymphedema runs in family PMH - PAST MEDICAL HISTORY OF 1999 endometrial cancer, had complete hysterectomy Psoriasis and similar disorders [place] 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 No colitis. Poor rectal sphincter tone. Referred to Oriana Newberry. COLONOSCOPY FLX DX W/COLLJ SPEC WHEN PFRMD 11/29/2011 [facility] Main /Dr. Anderson COLONOSCOPY FLX DX W/COLLJ SPEC WHEN PFRMD 07/2011 Janneth COLONOSCOPY FLX DX W/COLLJ SPEC WHEN PFRMD 09/2011 Dr. Lagunas [facility] ESOPHAGOGASTRODUODENOSCOPY TRANSORAL DIAGNOSTIC 12/2009 [facility] Janneth ESOPHAGOGASTRODUODENOSCOPY TRANSORAL DIAGNOSTIC 12/2010 [facility] Janneth FISTULA HERNIA REPAIR HX 12/2008 incisional [...] CA Stroke Father Ischemic Heart Disease Father [place] age 70s Diabetes Mother age 76 other [...] mg by mouth once daily. Blood-Glucose Transmitter ([employer] G6 TRANSMITTER) brady Apply new transmitter every 90 days. Clean transmitter with an alcohol swab with each sensor change. Blood-Glucose Meter,Continuous (DEXCOM G6 FINANCING ANALYST) [facility] Use to check blood sugar at least four (4) times daily. Blood-Glucose Sensor ([employer] G6 SENSOR) brady Apply new sensor every [...] HPI) Psych (no depression, anxiety) REFERRING PHYSICIAN: . Christina Guerrier was referred to me for consultation by the following physician. This consultation note will be sent to the following physician by either mail or electronic medical record. Josse Lance [address] [facility] [address] Jame Hunt MD [id number] [facility] [address] Charbel Esparza MD documented in this encounter [facility] 07-21-2021 Miscellaneous Notes Patient calling said [...] chair. Please advise documented in this encounter [facility] 07-13-2021 Miscellaneous Notes Patient notified that prescription was sent to the pharmacy and verbalized understanding. [facility] checked and [facility]. All prescriptions have been APPROPRIATELY filled. No suspicious activity was identified. 07/13/2021 by Josse Lance APRN.BINDING STITCHER Patient called to check on her request for medication; does not see Ortho until 07/27/21. Please send to [facility]; added to file. Please call her today. Patient said Josse Lance referred her to ortho for wrist pain. Patient can't get in until 07/27/21. Wants to know if she can have a refill of Weston or another rx for the pain. Please advise at [phone]. documented in this encounter [facility] 07-13-2021 Miscellaneous Notes PharmD printed out [...] Once completed, will plan to fax to [facility] Medical. Kim La PharmD, [facility] Primary Care Clinical Pharmacist Julia Gu [facility] documented in this encounter [facility] 07-12-2021 Miscellaneous Notes I called [employer] today at the number provided below. Spoke with a very helpful apprenticeship representative named Lokesh who said the order needs to be submitted through medical benefit to [employer] company [employer]. PharmNichole will plan to resubmit paperwork tomorrow. No letter or fax. I called the per PA response [employer] at [phone] PharmNichole spoke with patient (can see MyC msg from today and also a replay from 06/29 MyC msg). Patient is certain her insurance will cover Dexcom if it is process through prescription vs medical. She said that Human states more info is needed but was not provided more information. Has our office received any fax or letters from [employer] regarding what information we may be missing? Selena sent a MyChart msg to patient today to see if she is aware if insurance prefers [employer] [place] 2. The patient notified Selena last month that her insurance should cover Dexcom if sent through [email or web address]. Will await patient response. Kim La PharmD, [facility] Primary Care Clinical Pharmacist Julia Gu [facility] Called number and the PA needs to come from the pharmacy. They are asking for code DME H. The Dr office does not have this code. This call reference number is [phone]. [facility] to [facility] and pharmacist doesn't have this info either. He doesn't believe this would be covered.What about a guy ho? Images from the original note were not included. Per jose antonio PA response. Per [employer] for dexcom transmitter. PER the pharmacy this needs to have Prior Authorization thru her medical insurance not a covered benefit. documented in this encounter [facility] 07-12-2021 Miscellaneous Notes PharmD called [employer] ([phone]) and spoke with apprenticeship representative, Lokesh. Sees that authorization was submitted on July 10 and it is pending. He reported the authorization was submitted incorrectly as pharmacy benefit instead of a medical benefit. He said application needs to be submitted through [facility] [employer] (contact number provided: ). PharmD will plan to resubmit application through [facility] [employer] tomorrow when in the [facility] office. Kim La PharmD, [facility] Primary Care Clinical Pharmacist Cathryn LEA [facility] documented in this encounter [facility] 07-09-2021 Miscellaneous Notes Patient is scheduled [...] with current treatment. documented in this encounter [facility] 07-03-2021 Miscellaneous Notes Addended by: JOSSE LANCE on: 07/03/2021 11:41 AM Modules accepted: Orders documented in this encounter [facility] 07-03-2021 History of Present illness Narrative [...] (Hcc) Krueger's Palsy Coronary Artery Disease Involving [place] Coronary Artery of [place] Heart Without Angina Pectoris Stable Angina (Hcc) [...] U-100 0.5 mL 31 gauge x 16 , Use to inject insulin 5 times [...] [facility] COPD (chronic obstructive pulmonary disease) ([facility]) Diabetes mellitus without mention of complication Diabetic polyneuropathy ([facility]) 02/04/2017 Disorder of thyroid DVT (deep venous thrombosis) ([facility]) Esophageal reflux Hammer toes, bilateral 11/30/2016 History of transfusion Hypertension Incisional hernia 12/30/2008 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 Josse Lance APRN.BINDING STITCHER Medical Decision Making: Problems: Moderate: 2+ stable chronic illnesses Data: Unique test(s) ordered: 3+ Risk: Moderate: Drug management Medical Decision Making Level: 4 - Moderate documented in this encounter [facility] 07-03-2021 Miscellaneous Notes Did we ever receive the fax that [facility] said they were sending over? Noted. Please le us know if you need anything from PCP. Thank you Silva Plasencia APRN.CNP Noted, once fax is received place document it and place on PharmD's desk. Thanks! Kim La PharmD, [facility] Primary Care Clinical Pharmacist Julia Gu [facility] Rossana @ [employer] calling to let PCP know she is faxing a new order form for Dexcom G6 System. She states the original order was incomplete. Amadeo Mar, RN documented in this encounter [facility] 06-13-2021 Miscellaneous Notes Tonya from [facility] calling asking for paper work to be faxed to [phone]. Found paper work and faxed as requested. Current paperwork and orders sent to [facility]. We will await response. Franci Quinn LPN Franci. Do we have the paper work we sent to the [facility] people? How do I order for this? dont we get a form that we need to fill? Christina Guerrier is calling Jame Hunt MD today to request an order for a motorized scooter. Patient said this has been requested before but sent to [facility] who did not have the scooter in stock. Patient asking if an order can be faxed to [facility]. Please fax order to [phone]. Patient asking tor a return call.No chief complaint on file. Patient has been identified by name and birthdate. Duration of symptoms: N/A Person calling: self Call patient at: on cell [phone] (home) [phone] (cell) Was an appointment scheduled: No Closing statement: Results or non-symptom based questions: Thank you for calling [facility], your call will be returned within the next business day. Veronica Richard documented in this encounter [facility] 06-08-2021 Miscellaneous Notes Script for Novolog [...] Amadeo Mar RN documented in this encounter [facility] 06-08-2021 Miscellaneous Notes PharmD completed [employer] CMN form. PCP signed form and chart note and faxed to [facility] today. Kim La PharmD, [facility] Primary Care Clinical Pharmacist Julia Gu [facility] documented in this encounter [facility] 06-08-2021 History of Present illness Narrative [...] a protein shake) Beverages are limited. Drinks Tucker Crush (its the only thing she can stomach; 1 can lasts 1 day) MEDICATIONS: Pill bottles are not present Adherence: denies missed doses [facility] Affordability: no issues Diabetes supplies: [employer] System: pill box ACTIVE PROBLEM LIST WOUND [...] (Hcc) Krueger's Palsy Coronary Artery Disease Involving [place] Coronary Artery of [place] Heart Without Angina Pectoris Stable Angina (Hcc) [...] stage 4 (severe) (HCC) 12/11/2016 Anxiety Arthritis Krueegr's palsy CAD (coronary artery disease) Cancer (HCC) [...] Incisional hernia 12/30/2008 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 Kim La PharmD, [facility] Primary Care Clinical Pharmacist Julia Gu [facility] The majority of the pharmacy visit (> 50%) was spent counseling and/or coordinating care for the patient. interaction: face to face time was 55 minutes. documented in this encounter [facility] 06-08-2021 Instructions Kim La RPh - 06/08/2021 3:00 PM EDT INCREASE Lantus to 50 units twice daily INCREASE Novolog to 17 units with meals Continue monitoring your blood sugars. PharmD will work on getting order submitted for continuous glucose monitor. Contact PharmD if any issues with low blood sugars. documented in this encounter [facility] 06-08-2021 Miscellaneous Notes Addended by: KIM LA on: 06/08/2021 04:09 PM Modules accepted: Orders documented in this encounter [facility] 06-02-2021 Miscellaneous Notes This was faxed 03/29/21. Will refax today 06/02. Patient is calling in today still waiting on scooter. Keny is still waiting on the actual order for this. Keny phone number is [phone] If you can please send an order [...] work rec'd from the office from whatever [employer] company pt is using for this. Please set the prior auth in motion Patient reports [employer] tells her pcp needs to do a PA for the electric scooter. Prior Authorization Documentation Prior authorization requested for the following medication: Medication: Electric Scooter Provider: [employer] Company Name: [employer] Phone number: [phone] Patient ID number: [id number] Pharmacy Name: [facility] is [facility] of them - will not get more until August or September Pharmacy Telephone number: Will find out from [employer] where can get one from. Patient also wants pcp to know she had heart cath done on , and will need triple bypass. Patient reports she spoke with surgeon yesterday- and surgeon will call her next at 8:30 am to let her know. 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 12/07/2016 0 11/29/2020 Last Assessment [...] of this encounter (statuses as of 06/08/2021) [facility] History of Past illness Narrative* Problem [...] of this encounter (statuses as of 06/08/2021) [facility] History of Past illness Narrative* Problem [...] of this encounter (statuses as of 06/09/2021) [facility] History of Past illness Narrative* Problem Noted Date Resolved Date Acute renal failure superimp osed on stage 4 chronic kidney disease 01/02/2020 11/29/2020 Shortness of breath 11/23/2019 11/29/2020 Meralgia paresthetica of right side 02/20/2018 06/09/2018 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 12/07/2016 0 11/29/2020 Last [...] of this encounter (statuses as of 06/13/2021) [facility] History of Past illness Narrative* Problem Noted Date Resolved Date Acute renal failure superimp osed on stage 4 chronic kidney disease 01/02/2020 11/29/2020 Shortness of breath 11/23/2019 11/29/2020 Meralgia paresthetica of right side 02/20/2018 06/09/2018 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 12/07/2016 0 11/29/2020 Last [...] of this encounter (statuses as of 06/15/2021) [facility] History of Past illness Narrative* Problem Noted Date Resolved Date Acute renal failure superimp osed on stage 4 chronic kidney disease 01/02/2020 11/29/2020 Shortness of breath 11/23/2019 11/29/2020 Meralgia paresthetica of right side 02/20/2018 06/09/2018 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 12/07/2016 0 11/29/2020 Last [...] of this encounter (statuses as of 06/29/2021) [facility] History of Past illness Narrative* Problem Noted Date Resolved Date Acute renal failure superimp osed on stage 4 chronic kidney disease 01/02/2020 11/29/2020 Shortness of breath 11/23/2019 11/29/2020 Meralgia paresthetica of right side 02/20/2018 06/09/2018 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 12/07/2016 0 11/29/2020 Last [...] of this encounter (statuses as of 07/03/2021) [facility]2020 History of Past illness Narrative* Problem [...] of this encounter (statuses as of 07/09/2021) [facility] History of Past illness Narrative* Problem Noted Date Resolved Date Acute renal failure superimp osed on stage 4 chronic kidney disease 01/02/2020 11/29/2020 Shortness of breath 11/23/2019 11/29/2020 Meralgia paresthetica of right side 02/20/2018 06/09/2018 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 12/07/2016 0 11/29/2020 Last [...] of this encounter (statuses as of 07/11/2021) [facility] History of Past illness Narrative* Problem Noted Date Resolved Date Acute renal failure superimp osed on stage 4 chronic kidney disease 01/02/2020 11/29/2020 Shortness of breath 11/23/2019 11/29/2020 Meralgia paresthetica of right side 02/20/2018 06/09/2018 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 12/07/2016 0 11/29/2020 Last [...] of this encounter (statuses as of 07/12/2021) [facility] History of Past illness Narrative* Problem Noted Date Resolved Date Acute renal failure superimp osed on stage 4 chronic kidney disease 01/02/2020 11/29/2020 Shortness of breath 11/23/2019 11/29/2020 Meralgia paresthetica of right side 02/20/2018 06/09/2018 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 12/07/2016 0 11/29/2020 Last [...] of this encounter (statuses as of 07/13/2021) [facility] History of Past illness Narrative* Problem [...] of this encounter (statuses as of 07/13/2021) [facility] History of Past illness Narrative* Problem [...] of this encounter (statuses as of 07/14/2021) [facility] History of Past illness Narrative* Problem Noted Date Resolved Date Acute renal failure superimp osed on stage 4 chronic kidney disease 01/02/2020 11/29/2020 Shortness of breath 11/23/2019 11/29/2020 Meralgia paresthetica of right side 02/20/2018 06/09/2018 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 12/07/2016 0 11/29/2020 Last [...] of this encounter (statuses as of 08/03/2021) [facility] History of Past illness Narrative* Problem Noted Date Resolved Date Acute renal failure superimp osed on stage 4 chronic kidney disease 01/02/2020 11/29/2020 Shortness of breath 11/23/2019 11/29/2020 Meralgia paresthetica of right side 02/20/2018 06/09/2018 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 12/07/2016 0 11/29/2020 Last [...] of this encounter (statuses as of 08/08/2021) [facility] History of Past illness Narrative* Problem Noted Date Resolved Date Acute renal failure superimp osed on stage 4 chronic kidney disease 01/02/2020 11/29/2020 Shortness of breath 11/23/2019 11/29/2020 Meralgia paresthetica of right side 02/20/2018 06/09/2018 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 12/07/2016 0 11/29/2020 Last [...] of this encounter (statuses as of 08/09/2021) [facility] History of Past illness Narrative* Problem [...] of this encounter (statuses as of 08/10/2021) [facility] History of Past illness Narrative* Problem Noted Date Resolved Date Acute renal failure superimp osed on stage 4 chronic kidney disease 01/02/2020 11/29/2020 Shortness of breath 11/23/2019 11/29/2020 Meralgia paresthetica of right side 02/20/2018 06/09/2018 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 12/07/2016 0 11/29/2020 Last [...] of this encounter (statuses as of 08/14/2021) [facility] History of Past illness Narrative* Problem [...] of this encounter (statuses as of 08/14/2021) [facility] History of Past illness Narrative* Problem [...] of this encounter (statuses as of 08/21/2021) [facility] History of Past illness Narrative* Problem Noted Date Resolved Date Acute renal failure superimp osed on stage 4 chronic kidney disease 01/02/2020 11/29/2020 Shortness of breath 11/23/2019 11/29/2020 Meralgia paresthetica of right side 02/20/2018 06/09/2018 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 12/07/2016 0 11/29/2020 Last [...] of this encounter (statuses as of 08/25/2021) [facility] History of Past illness Narrative* Problem Noted Date Resolved Date Acute renal failure superimp osed on stage 4 chronic kidney disease 01/02/2020 11/29/2020 Shortness of breath 11/23/2019 11/29/2020 Meralgia paresthetica of right side 02/20/2018 06/09/2018 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 12/07/2016 0 11/29/2020 Last [...] of this encounter (statuses as of 08/31/2021) [facility] History of Past illness Narrative* Problem [...] of this encounter (statuses as of 09/06/2021) [facility] History of Past illness Narrative* Problem Noted Date Resolved Date Acute renal failure superimp osed on stage 4 chronic kidney disease 01/02/2020 11/29/2020 Shortness of breath 11/23/2019 11/29/2020 Meralgia paresthetica of right side 02/20/2018 06/09/2018 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 12/07/2016 0 11/29/2020 Last [...] of this encounter (statuses as of 09/06/2021) [facility] History of Past illness Narrative* Problem Noted Date Resolved Date Acute renal failure superimp osed on stage 4 chronic kidney disease 01/02/2020 11/29/2020 Shortness of breath 11/23/2019 11/29/2020 Meralgia paresthetica of right side 02/20/2018 06/09/2018 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 12/07/2016 0 11/29/2020 Last [...] of this encounter (statuses as of 09/07/2021) [facility] History of Past illness Narrative* Problem [...] of this encounter (statuses as of 09/07/2021) [facility] History of Past illness Narrative* Problem Noted Date Resolved Date Acute renal failure superimp osed on stage 4 chronic kidney disease 01/02/2020 11/29/2020 Shortness of breath 11/23/2019 11/29/2020 Meralgia paresthetica of right side 02/20/2018 06/09/2018 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 12/07/2016 0 11/29/2020 Last [...] of this encounter (statuses as of 09/07/2021) [facility] History of Past illness Narrative* Problem Noted Date Resolved Date Acute renal failure superimp osed on stage 4 chronic kidney disease 01/02/2020 11/29/2020 Shortness of breath 11/23/2019 11/29/2020 Meralgia paresthetica of right side 02/20/2018 06/09/2018 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 12/07/2016 0 11/29/2020 Last [...] of this encounter (statuses as of 09/11/2021) [facility] History of Past illness Narrative* Problem Noted Date Resolved Date Acute renal failure superimp osed on stage 4 chronic kidney disease 01/02/2020 11/29/2020 Shortness of breath 11/23/2019 11/29/2020 Meralgia paresthetica of right side 02/20/2018 06/09/2018 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 12/07/2016 0 11/29/2020 Last [...] of this encounter (statuses as of 09/12/2021) [facility] History of Past illness Narrative* Problem Noted Date Resolved Date Acute renal failure superimp osed on stage 4 chronic kidney disease 01/02/2020 11/29/2020 Shortness of breath 11/23/2019 11/29/2020 Meralgia paresthetica of right side 02/20/2018 06/09/2018 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 12/07/2016 0 11/29/2020 Last [...] of this encounter (statuses as of 09/22/2021) [facility] History of Past illness Narrative* Problem [...] of this encounter (statuses as of 09/26/2021) [facility] History of Past illness Narrative* Problem [...] of this encounter (statuses as of 09/27/2021) [facility] History of Past illness Narrative* Problem Noted Date Resolved Date Acute renal failure superimp osed on stage 4 chronic kidney disease 01/02/2020 11/29/2020 Shortness of breath 11/23/2019 11/29/2020 Meralgia paresthetica of right side 02/20/2018 06/09/2018 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 12/07/2016 0 11/29/2020 Last [...] of this encounter (statuses as of 09/28/2021) [facility] History of Past illness Narrative* Problem Noted Date Resolved Date Acute renal failure superimp osed on stage 4 chronic kidney disease 01/02/2020 11/29/2020 Shortness of breath 11/23/2019 11/29/2020 Meralgia paresthetica of right side 02/20/2018 06/09/2018 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 12/07/2016 0 11/29/2020 Last [...] of this encounter (statuses as of 09/28/2021) [facility] History of Past illness Narrative* Problem Noted Date Resolved Date Acute renal failure superimp osed on stage 4 chronic kidney disease 01/02/2020 11/29/2020 Shortness of breath 11/23/2019 11/29/2020 Meralgia paresthetica of right side 02/20/2018 06/09/2018 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 12/07/2016 0 11/29/2020 Last [...] of this encounter (statuses as of 10/09/2021) [facility] History of Past illness Narrative* Problem [...] of this encounter (statuses as of 10/12/2021) [facility] History of Past illness Narrative* Problem Noted Date Resolved Date Acute renal failure superimp osed on stage 4 chronic kidney disease 01/02/2020 11/29/2020 Shortness of breath 11/23/2019 11/29/2020 Meralgia paresthetica of right side 02/20/2018 06/09/2018 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 12/07/2016 0 11/29/2020 Last [...] of this encounter (statuses as of 10/20/2021) [facility] History of Past illness Narrative* Problem [...] of this encounter (statuses as of 10/20/2021) [facility] History of Past illness Narrative* Problem Noted Date Resolved Date Acute renal failure superimp osed on stage 4 chronic kidney disease 01/02/2020 11/29/2020 Shortness of breath 11/23/2019 11/29/2020 Meralgia paresthetica of right side 02/20/2018 06/09/2018 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 12/07/2016 0 11/29/2020 Last [...] of this encounter (statuses as of 10/21/2021) [facility] History of Past illness Narrative* Problem [...] of this encounter (statuses as of 10/23/2021) [facility] History of Past illness Narrative* Problem [...] of this encounter (statuses as of 11/02/2021) [facility] History of Past illness Narrative* Problem Noted Date Resolved Date Acute renal failure superimp osed on stage 4 chronic kidney disease 01/02/2020 11/29/2020 Shortness of breath 11/23/2019 11/29/2020 Meralgia paresthetica of right side 02/20/2018 06/09/2018 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 12/07/2016 0 11/29/2020 Last [...] of this encounter (statuses as of 11/07/2021) [facility] History of Past illness Narrative* Problem [...] of this encounter (statuses as of 11/15/2021) [facility] History of Past illness Narrative* Problem [...] of this encounter (statuses as of 11/27/2021) [facility] History of Past illness Narrative* Problem [...] of this encounter (statuses as of 12/04/2021) [facility] History of Past illness Narrative* Problem Noted Date Resolved Date Acute renal failure superimp osed on stage 4 chronic kidney disease 01/02/2020 11/29/2020 Shortness of breath 11/23/2019 11/29/2020 Meralgia paresthetica of right side 02/20/2018 06/09/2018 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 12/07/2016 0 11/29/2020 Last [...] of this encounter (statuses as of 12/11/2021) [facility] History of Past illness Narrative* Problem Noted Date Resolved Date Acute renal failure superimp osed on stage 4 chronic kidney disease 01/02/2020 11/29/2020 Shortness of breath 11/23/2019 11/29/2020 Meralgia paresthetica of right side 02/20/2018 06/09/2018 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 12/07/2016 0 11/29/2020 Last [...] of this encounter (statuses as of 12/12/2021) [facility] History of Past illness Narrative* Problem [...] of this encounter (statuses as of 12/13/2021) [facility] History of Past illness Narrative* Problem [...] of this encounter (statuses as of 01/01/2022) [facility] History of Past illness Narrative* Problem Noted Date Resolved Date Acute renal failure superimp osed on stage 4 chronic kidney disease 01/02/2020 11/29/2020 Shortness of breath 11/23/2019 11/29/2020 Meralgia paresthetica of right side 02/20/2018 06/09/2018 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 12/07/2016 0 11/29/2020 Last [...] of this encounter (statuses as of 01/01/2022) [facility] History of Past illness Narrative* Problem [...] of this encounter (statuses as of 01/01/2022) [facility] History of Past illness Narrative* Problem Noted Date Resolved Date Acute renal failure superimp osed on stage 4 chronic kidney disease 01/02/2020 11/29/2020 Shortness of breath 11/23/2019 11/29/2020 Meralgia paresthetica of right side 02/20/2018 06/09/2018 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 12/07/2016 0 11/29/2020 Last [...] of this encounter (statuses as of 01/19/2022) [facility] History of Past illness Narrative* Problem Noted Date Resolved Date Acute renal failure superimp osed on stage 4 chronic kidney disease 01/02/2020 11/29/2020 Shortness of breath 11/23/2019 11/29/2020 Meralgia paresthetica of right side 02/20/2018 06/09/2018 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 12/07/2016 0 11/29/2020 Last [...] of this encounter (statuses as of 01/24/2022) [facility] History of Past illness Narrative* Problem Noted Date Resolved Date Acute renal failure superimp osed on stage 4 chronic kidney disease 01/02/2020 11/29/2020 Shortness of breath 11/23/2019 11/29/2020 Meralgia paresthetica of right side 02/20/2018 06/09/2018 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 12/07/2016 0 11/29/2020 Last [...] of this encounter (statuses as of 01/26/2022) [facility] History of Past illness Narrative* Problem Noted Date Resolved Date Acute renal failure superimp osed on stage 4 chronic kidney disease 01/02/2020 11/29/2020 Shortness of breath 11/23/2019 11/29/2020 Meralgia paresthetica of right side 02/20/2018 06/09/2018 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 12/07/2016 0 11/29/2020 Last [...] of this encounter (statuses as of 01/29/2022) [facility] History of Past illness Narrative* Problem Noted Date Resolved Date Acute renal failure superimp osed on stage 4 chronic kidney disease 01/02/2020 11/29/2020 Shortness of breath 11/23/2019 11/29/2020 Meralgia paresthetica of right side 02/20/2018 06/09/2018 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 12/07/2016 0 11/29/2020 Last [...] of this encounter (statuses as of 02/01/2022) [facility] History of Past illness Narrative* Problem [...] of this encounter (statuses as of 02/05/2022) [facility] History of Past illness Narrative* Problem [...] of this encounter (statuses as of 02/05/2022) [facility] History of Past illness Narrative* Problem Noted Date Resolved Date Acute renal failure superimp osed on stage 4 chronic kidney disease 01/02/2020 11/29/2020 Shortness of breath 11/23/2019 11/29/2020 Meralgia paresthetica of right side 02/20/2018 06/09/2018 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 12/07/2016 0 11/29/2020 Last [...] of this encounter (statuses as of 02/09/2022) [facility] History of Past illness Narrative* Problem Noted Date Resolved Date Acute renal failure superimp osed on stage 4 chronic kidney disease 01/02/2020 11/29/2020 Shortness of breath 11/23/2019 11/29/2020 Meralgia paresthetica of right side 02/20/2018 06/09/2018 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 12/07/2016 0 11/29/2020 Last [...] of this encounter (statuses as of 02/23/2022) [facility] History of Past illness Narrative* Problem [...] of this encounter (statuses as of 03/19/2022) [facility] Past illness Narrative* Problem [...] of this encounter (statuses as of 04/19/2022) [facility] History of Past illness Narrative* Problem [...] of this encounter (statuses as of 04/20/2022) [facility] History of Past illness Narrative* Problem [...] of this encounter (statuses as of 04/24/2022) [facility] History of Past illness Narrative* Problem Noted Date Resolved Date Acute renal failure superimp osed on stage 4 chronic kidney disease 01/02/2020 11/29/2020 Shortness of breath 11/23/2019 11/29/2020 Meralgia paresthetica of right side 02/20/2018 06/09/2018 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 12/07/2016 0 11/29/2020 Last [...] of this encounter (statuses as of 05/02/2022) [facility] History of Past illness Narrative* Problem [...] of this encounter (statuses as of 05/03/2022) [facility] History of Past illness Narrative* Problem [...] of this encounter (statuses as of 05/03/2022) [facility] History of Past illness Narrative* Problem [...] of this encounter (statuses as of 05/07/2022) [facility] History of Past illness Narrative* Problem Noted Date Resolved Date Acute renal failure superimp osed on stage 4 chronic kidney disease 01/02/2020 11/29/2020 Shortness of breath 11/23/2019 11/29/2020 Meralgia paresthetica of right side 02/20/2018 06/09/2018 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 12/07/2016 0 11/29/2020 Last [...] of this encounter (statuses as of 05/16/2022) [facility] History of Past illness Narrative* Problem [...] of this encounter (statuses as of 05/21/2022) [facility] History of Past illness Narrative* Problem Noted Date Resolved Date Acute renal failure superimp osed on stage 4 chronic kidney disease 01/02/2020 11/29/2020 Shortness of breath 11/23/2019 11/29/2020 Meralgia paresthetica of right side 02/20/2018 06/09/2018 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 12/07/2016 0 11/29/2020 Last [...] of this encounter (statuses as of 05/23/2022) [facility] History of Past illness Narrative* Problem Noted Date Resolved Date Acute renal failure superimp osed on stage 4 chronic kidney disease 01/02/2020 11/29/2020 Shortness of breath 11/23/2019 11/29/2020 Meralgia paresthetica of right side 02/20/2018 06/09/2018 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 12/07/2016 0 11/29/2020 Last [...] of this encounter (statuses as of 05/23/2022) [facility] History of Past illness Narrative* Problem [...] of this encounter (statuses as of 05/23/2022) [facility] History of Past illness Narrative* Problem Noted Date Resolved Date Acute renal failure superimp osed on stage 4 chronic kidney disease 01/02/2020 11/29/2020 Shortness of breath 11/23/2019 11/29/2020 Meralgia paresthetica of right side 02/20/2018 06/09/2018 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 12/07/2016 0 11/29/2020 Last [...] of this encounter (statuses as of 05/23/2022) [facility] History of Past illness Narrative* Problem Noted Date Resolved Date Acute renal failure superimp osed on stage 4 chronic kidney disease 01/02/2020 11/29/2020 Shortness of breath 11/23/2019 11/29/2020 Meralgia paresthetica of right side 02/20/2018 06/09/2018 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 12/07/2016 0 11/29/2020 Last [...] of this encounter (statuses as of 05/29/2022) [facility] History of Past illness Narrative* Problem [...] of this encounter (statuses as of 05/31/2022) [facility] History of Past illness Narrative* Problem Noted Date Resolved Date Acute renal failure superimp osed on stage 4 chronic kidney disease 01/02/2020 11/29/2020 Shortness of breath 11/23/2019 11/29/2020 Meralgia paresthetica of right side 02/20/2018 06/09/2018 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 12/07/2016 0 11/29/2020 Last [...] of this encounter (statuses as of 06/14/2022) [facility] History of Past illness Narrative* Problem Noted Date Resolved Date Acute renal failure superimp osed on stage 4 chronic kidney disease 01/02/2020 11/29/2020 Shortness of breath 11/23/2019 11/29/2020 Meralgia paresthetica of right side 02/20/2018 06/09/2018 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 12/07/2016 0 11/29/2020 Last [...] of this encounter (statuses as of 06/15/2022) [facility] History of Past illness Narrative* Problem [...] of this encounter (statuses as of 06/22/2022) [facility] Past illness Narrative* Problem [...] of this encounter (statuses as of 06/27/2022) [facility] of Past illness Narrative* Problem Noted Date Resolved Date Acute renal failure superimp osed on stage 4 chronic kidney disease 01/02/2020 11/29/2020 Shortness of breath 11/23/2019 11/29/2020 Meralgia paresthetica of right side 02/20/2018 06/09/2018 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 12/07/2016 0 11/29/2020 Last [...] of this encounter (statuses as of 07/05/2022) [facility] of Past illness Narrative* Problem [...] of this encounter (statuses as of 07/11/2022) [facility]arrative* Problem [...] of this encounter (statuses as of 07/12/2022) [facility] Past [facility]arrative* Problem [...] of this encounter (statuses as of 07/13/2022) [facility]arr[facility]* Problem [...] of this encounter (statuses as of 08/23/2022) [facility]arrative* Problem [...] of this encounter (statuses as of 08/29/2022) [facility]arrative* Problem [...] of this encounter (statuses as of 08/30/2022) [facility]arrative* Problem [...] of this encounter (statuses as of 08/30/2022) [facility]arrative* Problem [...] of this encounter (statuses as of 09/26/2022) [facility] Past illness Narrative* Problem Noted Date Diagnosed Date Resolved Date Acute renal failure superimp osed on stage 4 chronic kidney disease 01/02/2020 11/29/2020 Shortness of breath 11/23/2019 11/30/19 Meralgia paresthetica of right side 02/20/2018 06/09/2018 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 12/07/2016 11/29/2020 Last Assessment [...] of this encounter (statuses as of 09/27/2022) [facility] History of Past illness Narrative* Problem [...] of this encounter (statuses as of 10/24/2022) [facility] History of Past illness Narrative* Problem [...] of this encounter (statuses as of 10/26/2022) [facility] History of Past illness Narrative* Problem [...] of this encounter (statuses as of 10/27/2022) [facility] History of Past illness Narrative* Problem [...] of this encounter (statuses as of 10/28/2022) [facility] History of Past illness Narrative* Problem [...] of this encounter (statuses as of 11/07/2022) [facility] History of Past illness Narrative* Problem [...] of this encounter (statuses as of 11/21/2022) [facility] History of Past illness Narrative* Problem Noted Date Diagnosed Date Resolved Date Acute renal failure superimp osed on stage 4 chronic kidney disease 01/02/2020 11/29/2020 Shortness of breath 11/23/2019 11/30/19 21 Meralgia paresthetica of right side 02/20/2018 06/09/2018 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 12/07/2016 11/29/2020 Last Assessment [...] of this encounter (statuses as of 11/23/2022) [facility] History of Past illness Narrative* Problem [...] of this encounter (statuses as of 11/27/2022) [facility] History of Past illness Narrative* Problem [...] of this encounter (statuses as of 12/19/2022) [facility] History of Past illness Narrative* Problem Noted Date Diagnosed Date Resolved Date Acute renal failure superimp osed on stage 4 chronic kidney disease 01/02/2020 11/29/2020 Shortness of breath 11/23/2019 11/30/19 Meralgia paresthetica of right side 02/20/2018 06/09/2018 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 12/07/2016 11/29/2020 Last Assessment [...] of this encounter (statuses as of 12/20/2022) [facility] History of Past illness Narrative* Problem [...] of this encounter (statuses as of 12/25/2022) [facility] History of Past illness Narrative* Problem [...] of this encounter (statuses as of 12/27/2022) [facility] History of Past illness Narrative* Problem [...] of this encounter (statuses as of 01/05/2023) [facility] History of Past illness Narrative* Problem Noted Date Diagnosed Date Resolved Date Acute renal failure superimp osed on stage 4 chronic kidney disease 01/02/2020 11/29/2020 Shortness of breath 11/23/2019 11/30/19 21 Meralgia paresthetica of right side 02/20/2018 06/09/2018 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 12/07/2016 11/29/2020 Last Assessment [...] of this encounter (statuses as of 01/06/2023) [facility] History of Past illness Narrative* Problem Noted Date Diagnosed Date Resolved Date Acute renal failure superimp osed on stage 4 chronic kidney disease 01/02/2020 11/29/2020 Shortness of breath 11/23/2019 11/30/19 21 Meralgia paresthetica of right side 02/20/2018 06/09/2018 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 12/07/2016 11/29/2020 Last Assessment [...] of this encounter (statuses as of 01/06/2023) [facility] History of Past illness Narrative* Problem [...] of this encounter (statuses as of 01/09/2023) [facility] History of Past illness Narrative* Problem Noted Date Diagnosed Date Resolved Date Acute renal failure superimp osed on stage 4 chronic kidney disease 01/02/2020 11/29/2020 Shortness of breath 11/23/2019 11/30/19 21 Meralgia paresthetica of right side 02/20/2018 06/09/2018 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 12/07/2016 11/29/2020 Last Assessment [...] of this encounter (statuses as of 01/10/2023) [facility] History of Past illness Narrative* Problem [...] of this encounter (statuses as of 01/10/2023) [facility] History of Past illness Narrative* Problem [...] of this encounter (statuses as of 01/11/2023) [facility] History of Past illness Narrative* Problem Noted Date Diagnosed Date Resolved Date Acute renal failure superimp osed on stage 4 chronic kidney disease 01/02/2020 11/29/2020 Shortness of breath 11/23/2019 11/30/19 Meralgia paresthetica of right side 02/20/2018 06/09/2018 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 12/07/2016 11/29/2020 Last Assessment [...] of this encounter (statuses as of 01/11/2023) [facility] History of Past illness Narrative* Problem Noted Date Diagnosed Date Resolved Date Acute renal failure superimp osed on stage 4 chronic kidney disease 01/02/2020 11/29/2020 Shortness of breath 11/23/2019 11/30/19 Meralgia paresthetica of right side 02/20/2018 06/09/2018 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 12/07/2016 11/29/2020 Last Assessment [...] of this encounter (statuses as of 01/15/2023) [facility] History of Past illness Narrative* Problem Noted Date Diagnosed Date Resolved Date Acute renal failure superimp osed on stage 4 chronic kidney disease 01/02/2020 11/29/2020 Shortness of breath 11/23/2019 11/30/19 21 Meralgia paresthetica of right side 02/20/2018 06/09/2018 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 12/07/2016 11/29/2020 Last Assessment [...] of this encounter (statuses as of 01/15/2023) [facility] History of Past illness Narrative* Problem [...] of this encounter (statuses as of 01/15/2023) [facility] History of Past illness Narrative* Problem [...] of this encounter (statuses as of 01/17/2023) [facility] History of Past illness Narrative* Problem [...] of this encounter (statuses as of 01/18/2023) [facility] History of Past illness Narrative* Problem [...] of this encounter (statuses as of 01/22/2023) [facility] History of Past illness Narrative* Problem Noted Date Diagnosed Date Resolved Date Acute renal failure superimp osed on stage 4 chronic kidney disease 01/02/2020 11/29/2020 Shortness of breath 11/23/2019 11/30/19 21 Meralgia paresthetica of right side 02/20/2018 06/09/2018 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 12/07/2016 11/29/2020 Last Assessment [...] of this encounter (statuses as of 02/12/2023) [facility] History of Past illness Narrative* Problem [...] of this encounter (statuses as of 02/12/2023) [facility] Diagnosis Type 2 diabetes mellitus with microalbuminuria, with long-term current use of insulin (HCC)- Primary Medication management Encounter for long-term (current) use of other medications [facility] Diagnosis Bilateral wrist pain- Primary Pain in joint, forearm Chronic pain of left wrist Acute pain of right wrist [facility] Diagnosis Acute pain [facility] right [facility] Diagnosis Type 2 diabetes mellitus with hyperosmolar coma, with long-term current use of insulin (HCC)- Primary [facility] Diagnosis Bilateral wrist pain Pain in joint, forearm Chronic pain of left wrist Acute pain of right wrist [facility] Diagnosis Redness and swelling of thigh- Primary Pain of right lower extremity Primary hypertension Unspecified essential hypertension Fever, unspecified fever cause Nausea Nausea alone Swelling of limb [facility] Diagnosis Lump of right thigh- Primary Tenderness of right lower extremity [facility] Diagnosis Lump of right thigh- Primary Localized swelling, mass, or lump of left upper extremity [facility] Diagnosis Localized swelling, mass, or lump of right lower extremity [facility] Diagnosis Type 2 diabetes mellitus with microalbuminuria, with long-term current use of insulin (HCC)- Primary Medication management Encounter for long-term (current) use of other medications [facility] Diagnosis CKD (chronic kidney disease) stage 4, GFR 15-29 ml/min (HCC)- Primary Chronic kidney disease, Stage IV (severe) [facility] Diagnosis Localized swelling, mass, or lump of right lower extremity [facility] Diagnosis Lump of right thigh- Primary Type 2 diabetes mellitus with hyperosmolar coma, with long-term current use of insulin ([facility]) [facility] Diagnosis Type 2 diabetes mellitus with microalbuminuria, with long-term current use of insulin ([facility])- Primary [facility] Diagnosis Abnormal vaginal bleeding- Primary Other specified noninflammatory disorder of vagina Chronic edema Edema Sleep disturbances Sleep disturbance, unspecified Acute otitis externa of right ear, unspecified type Pelvic cramping Unspecified symptom associated with female genital organs [facility] Diagnosis Abnormal vaginal bleeding- Primary Other specified noninflammatory disorder of vagina [facility] Diagnosis Abnormal vaginal bleeding Other specified noninflammatory disorder of vagina [facility] Diagnosis Type 2 diabetes mellitus with microalbuminuria, with long-term current use of insulin ([facility])- Primary Medication management Encounter for long-term (current) use of other medications [facility] Diagnosis History of recent hospitalization- Primary Personal history of unspecified disease Diarrhea, unspecified type Lower abdominal pain Abdominal pain, other specified site Hyperkalemia Hyperpotassemia Cellulitis, unspecified cellulitis site Anemia of chronic kidney failure, stage 4 (severe) ([facility]) [facility] Diagnosis Diarrhea, unspecified type- Primary [facility] Diagnosis Acquired hypothyroidism Unspecified hypothyroidism [facility] Diagnosis Chronic edema Edema [facility] Diagnosis Diarrhea, unspecified type- Primary Right wrist pain Pain in joint, forearm [facility] Diagnosis Dermatitis Contact dermatitis and other eczema, due to unspecified cause [facility] Diagnosis Dermatitis- Primary Contact dermatitis and [...] Hypertension, unspecified type [facility] Diagnosis Disorder of liver- Primary Unspecified disorder of liver Liver replaced by transplant (HCC) Liver replaced by transplant [facility] Diagnosis Type 2 diabetes mellitus with hyperosmolarity 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, with long-term current use of insulin (HCC)- Primary End stage kidney disease (HCC) End stage renal disease Dizziness Dizziness and giddiness Hypotension, unspecified hypotension type Other fatigue Acquired hypothyroidism Unspecified hypothyroidism Chronic diarrhea Diarrhea Liver replaced by transplant (HCC) Liver replaced by transplant [facility] Diagnosis Diarrhea, unspecified type- Primary [facility]* Diagnosis Encounter for screening mammogram for breast cancer [facility] Diagnosis Hypothyroidism, unspecified type [facility]* Diagnosis Pre-transplant evaluation for kidney transplant- Primary Other specified pre-operative examination [facility]* Diagnosis Type 2 diabetes mellitus with microalbuminuria, with long-term current use of insulin (HCC)- Primary [facility]* Diagnosis Type 2 diabetes mellitus with hyperosmolarity 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, with long-term current use of insulin (HCC)- Primary [facility]* Diagnosis Type 2 diabetes mellitus with microalbuminuria, with long-term current use of insulin (HCC)- Primary [facility]* Diagnosis Hypothyroidism, unspecified type Diarrhea, unspecified type Sleep disturbances Sleep disturbance, unspecified Mixed hyperlipidemia Chronic edema Edema [facility]* Diagnosis Right wrist pain Pain in joint, forearm [facility]* Diagnosis Type 2 diabetes mellitus with hyperosmolarity 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, with long-term current use of insulin (HCC)- Primary [facility]* Diagnosis Pre-transplant evaluation for kidney transplant- Primary Other specified pre-operative examination [facility] Diagnosis Chronic pain of both knees- Primary [facility] Diagnosis Pre-transplant evaluation for ESRD (end stage renal disease)- Primary Other specified pre-operative examination Liver transplant recipient (HCC) ESRD on dialysis (HCC) End stage renal disease Coronary artery disease 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 Type 2 diabetes mellitus with hyperosmolarity 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, with long-term current use of insulin ([facility]) Primary hypertension Unspecified essential hypertension [facility] Diagnosis Awaiting organ transplant- Primary Awaiting organ transplant status Dietary counseling and surveillance Dietary surveillance and counseling [facility] Diagnosis Type 2 diabetes mellitus with hyperosmolarity 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, with long-term current use of insulin ([facility])- Primary [facility] Diagnosis Dermatitis Contact dermatitis and other eczema, due to unspecified cause [facility] Diagnosis Pre-transplant evaluation for end stage renal disease- Primary Other specified pre-operative examination Pre-operative cardiovascular examination History of heart artery stent Postsurgical percutaneous transluminal coronary angioplasty status Awaiting organ transplant Awaiting organ transplant status [facility] Diagnosis Rash- Primary Rash and other nonspecific skin eruption Itching Unspecified pruritic disorder [facility] Diagnosis Left hip pain- Primary Pain in joint, pelvic region and thigh Fall, initial encounter [facility] Diagnosis Type 2 diabetes mellitus with hyperosmolarity 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, with long-term current use of insulin ([facility]) documented in this encounter [facility]* Diagnosis Left knee pain, unspecified chronicity- Primary Left hip pain Pain in joint, pelvic region and thigh [facility] Diagnosis Pre-transplant evaluation for kidney transplant- Primary Other specified pre-operative examination [facility] Diagnosis Nausea- Primary Nausea alone Epigastric pain Abdominal pain, epigastric Type 2 diabetes mellitus with hyperosmolarity 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, with long-term current use of insulin ([facility]) documented in this encounter [facility] note* Diagnosis Type 2 diabetes mellitus with hyperosmolarity 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, with long-term current use of insulin ([facility]) [facility] Diagnosis Encounter for screening for osteoporosis Special screening for osteoporosis Asymptomatic postmenopausal status [facility] Diagnosis Encounter for screening mammogram for breast cancer documented in this encounter [facility] note* Diagnosis Epigastric pain- Primary Abdominal pain, epigastric Nausea Nausea alone Left knee pain, unspecified chronicity Medication management Encounter for long-term (current) use of other medications Encounter for immunization Need for other specified prophylactic vaccination against single bacterial disease documented in this encounter [facility] note* Diagnosis Liver replaced by transplant (HCC)- Primary Liver replaced by transplant [facility] Diagnosis Preop cardiovascular exam- Primary Pre-operative cardiovascular examination documented in this encounter [facility] note* Diagnosis Sleep disturbances Sleep disturbance, unspecified documented in this encounter [facility] for referral (narrative)* Diagnostic Procedure Only (Routine) - Closed Specialty Diagnoses / Procedures Referred By Ibrahima dick Referred To Contact XR IMAGING Diagnoses Bilateral wrist pain Chronic pain of left wrist Acute pain of right wrist Procedures XR HAND GENERAL 3V PA/LAT/OBL BILATERAL RADEX HAND MINIMUM 3 VIEWS Josse Lance APRN.BINDING [employer]ITCHER [address] [place] [address] Xr Imaging Referral ID Status Reason Start Date Expiration Date V isits Requested Visits Authorized [id number] Closed Auto-Generate d Referral 07/03/2021 08/02/2022 1 1 * Consult, Test, Treat (Routine) - Pending Review Specialty Diagnoses / Procedures Referred By Ibrahima dick Referred To Contact Orthopedics Diagnoses Bilateral wrist pain Chronic pain of left wrist Acute pain of right wrist Procedures CONSULT TO ORTHOPAEDICS OFFICE/OUTPATIENT [facility] MDM 60-74 MINUTES Josse Lance APRN.BINDING STITCHER [address] [place] [address] Referral ID Status Reason Start Date Expiration Date Visits Requested Visits Authorized [id number] Pending Review PCP Requested Referral 07/03/2021 07/03/2022 1 1 * Diagnostic Procedure Only (Routine) - Closed Specialty Diagnoses / Procedures Referred By Contac t Referred To Contact XR IMAGING Diagnoses Bilateral wrist pain Chronic pain of left wrist Acute pain of right wrist Procedures XR HAND GENERAL 3V PA/LAT/OBL LEFT RADEX HAND MINIMUM 3 VIEWS Josse Lance APRN.B[employer]ING STITCHER [address] [place] [address] Xr Imaging Referral ID Status Reason Start Date Expiration Date V isits Requested Visits Authorized [id number] Closed Auto-Generate d Referral 07/03/2021 08/02/2022 1 1 * Diagnostic Procedure Only (Routine) - Closed Specialty Diagnoses / Procedures Referred By Contac t Referred To Contact XR IMAGING Diagnoses Bilateral wrist pain Chronic pain of left wrist Acute pain of right wrist Procedures XR HAND GENERAL 3V PA/LAT/OBL RIGHT RADEX HAND MINIMUM 3 VIEWS Josse Lance APRN.[employer]ITCHER [address] [place] [address] Xr Imaging Referral ID Status Reason Start Date Expiration Date V isits Requested Visits Authorized [id number] Closed Auto-Generate d Referral 07/03/2021 08/02/2022 1 1 [facility] for referral (narrative)* Outpatient Procedure (Urgent) - Authorized Specialty Diagnoses / Procedures Referred By Contac t Referred To [facility] Diagnoses Redness and swelling of thigh Swelling of limb Procedures US LEG VEIN DVT UNL VAS LAB DUP-SCAN XTR VEINS UNILATERAL/LIMITED STUDY Jame Hunt MD [address] [place] [address] [facility] [address] [place] [address] Referral ID Status Reason Start Date Expiration Date Visits Requested Visits Authorized [id number] Authorized Auto-Generat ed Referral 08/14/2021 03/03/2022 1 1 [facility] for referral (narrative)* Diagnostic Procedure Only (Routine) - Authorized Specialty Diagnoses / Procedures Referred By Contac t Referred To Contact US IMAGING Diagnoses Lump of right thigh Tenderness of right lower extremity Procedures US EXTREMITY MASS/FLUID COLLECTION RT Silva Plasencia APRN.[employer]LECTRON[employer] ENGINEER[employer]FT[employer]ERSON [address] [place] [address] Us Imaging Referral ID Status Reason Start Date Expiration Date Visits Requested Visits Authorized [id number] Authorized Auto-Generat ed Referral 08/25/2021 09/24/2022 1 1 [facility] for referral (narrative)* Diagnostic Procedure Only (Routine) - Closed Specialty Diagnoses / Procedures Referred By Contac t Referred To Contact MR IMAGING Diagnoses Localized swelling, mass, or lump of right lower extremity Procedures MRI UPPER LEG WO/W IVCON RT MRI LOWER EXTREM OTH/THN JT W/O & W/CONTR MATR Silva Plasencia APRN.[employer]INEER[employer] [address] [place] [address] Mr Imaging Referral ID Status Reason Start Date Expiration Date Visits Re quested Visits Authorized [id number] Closed 09/21/2021 10/21/2021 1 1 [facility] for referral (narrative)* Diagnostic Procedure Only (Urgent) - Pending Review Specialty Diagnoses / Procedures Referred By Contac t Referred To Contact US IMAGING Diagnoses Abnormal vaginal bleeding Procedures US FEMALE PELVIS TRANSABD LTD US PELVIC NONOBSTETRIC IMAGE DCMTN LIMITED/F/U Jaci Lucero APRN.ELECT[employer] ENGINEERING [employer]ERSON [address] [place] [address] Us Imaging Referral ID Status Reason Start Date Expiration Date Visits Requested Visits Authorized [id number] Pending Review Auto-Generat ed Referral 10/20/2021 11/19/2022 1 1 * Diagnostic Procedure Only (Routine) - Closed Specialty Diagnoses / Procedures Referred By Contac t Referred To Contact US IMAGING Diagnoses Abnormal vaginal bleeding Procedures US FEMALE PELVIS TRANSABD LTD US PELVIC NONOBSTETRIC IMAGE DCMTN LIMITED/F/U Jaci Lucero APRN.ELECTRON[employer] ENGINEERING [employer]RA[employer]ERSON [address] [place] [address] Us Imaging Referral ID Status Reason Start Date Expiration Date V isits Requested Visits Authorized [id number] Closed Auto-Generate d Referral 10/20/2021 11/19/2022 1 1 [facility] for referral (narrative)* Diagnostic Procedure Only (Routine) - Closed Specialty Diagnoses / Procedures Referred By Contac t Referred To Contact US IMAGING Diagnoses Abnormal vaginal bleeding Procedures US FEMALE PELVIS TRANSVAG US TRANSVAGINAL Jaci Lucero APRN.[employer]LECTRON[employer] ENGINEERING [employer]FT[employer]ERSON [address] [place] [address] Us Imaging Referral ID Status Reason Start Date Expiration Date V isits Requested Visits Authorized [id number] Closed Auto-Generate d Referral 10/20/2021 11/19/2022 1 1 [facility] for referral (narrative)* Diagnostic Procedure Only (Routine) - Closed Specialty Diagnoses / Procedures Referred By Contac t Referred To Contact US IMAGING Diagnoses Abnormal vaginal bleeding Procedures US FEMALE PELVIS TRANSVAG US TRANSVAGINAL Jaci Lucero APRN.ELECT[employer] ENGINEERING [employer]ERSON [address] [place] [address] Us Imaging Referral ID Status Reason Start Date Expiration Date V isits Requested Visits Authorized [id number] Closed Auto-Generate d Referral 10/20/2021 11/19/2022 1 1 * Diagnostic Procedure Only (Routine) - Closed Specialty Diagnoses / Procedures Referred By Contac t Referred To Contact US IMAGING Diagnoses Abnormal vaginal bleeding Procedures US FEMALE PELVIS TRANSABD LTD US PELVIC NONOBSTETRIC IMAGE DCMTN LIMITED/F/U Jaci Lucero APRN.[employer]INEER[employer]ERSON [address] [place] [address] Us Imaging Referral ID Status Reason Start Date Expiration Date V isits Requested Visits Authorized [id number] Closed Auto-Generate d Referral 10/20/2021 11/19/2022 1 1 [facility] for referral (narrative)* Diagnostic Procedure Only (Routine) - Authorized Specialty Diagnoses / Procedures Referred By Contac t Referred To Contact BR IMAGING Diagnoses Encounter for screening mammogram for breast cancer Procedures JAY SCREENING SCREENING MAMMOGRAPHY BI 2-VIEW BREAST INC CAD Jame Hunt MD [address] [place] [address] Br Imaging [address] [place] [address] Referral ID Status Reason Start Date Expiration Date Visits Requested Visits Authorized [id number] Authorized Auto-Generat ed Referral 05/02/2022 06/01/2023 1 1 [facility] for referral (narrative)* Diagnostic Procedure Only (Urgent) - Closed Specialty Diagnoses / Procedures Referred By Contac t Referred To Contact XR IMAGING Diagnoses Left hip pain Fall, initial encounter Procedures XR HIP GENERAL 3V PELV/AP/LAT LEFT RADEX HIP UNILATERAL WITH PELVIS 2-3 VIEWS Erin Plasencia APRN.[employer]INEER[employer]ERSON [address] [place] [address] [place] [address] Referral ID Status Reason Start Date Expiration Date V isits Requested Visits Authorized [id number] Closed Auto-Generate d Referral 11/07/2022 12/07/2023 1 1 [facility] for referral (narrative)* Diagnostic Procedure Only (Routine) - Closed Specialty Diagnoses / Procedures Referred By Contac t Referred To Contact XR IMAGING Diagnoses Left hip pain Left knee pain, unspecified chronicity Procedures XR KNEE GENERAL 4V AP BOTH/PA BOTH/LAT/MERC LEFT RADIOLOGIC EXAM KNEE COMPLETE 4/MORE VIEWS Ramin Mack PA-C [address] [place] [address] [place] [id number] Referral ID Status Reason Start Date Expiration Date V isits Requested Visits Authorized [id number] Closed Auto-Generate d Referral 11/26/2022 12/26/2023 1 1 * Consult, Test, Treat (Routine) - Pending Review Specialty Diagnoses / Procedures Referred By Contac t Referred To Contact Orthopedics Diagnoses Left hip pain Left knee pain, unspecified chronicity Procedures CONSULT TO ORTHOPAEDICS OFFICE/OUTPATIENT [facility] 60-74 MINUTES Charbel Esparza MD [address] [place] [address] Referral ID Status Reason Start Date Expiration Date Visits Requested Visits Authorized [id number] Pending Review PCP Requested Referral 11/26/2022 11/26/2023 1 1 [facility] for referral (narrative)* Diagnostic Procedure Only (Routine) - Closed Specialty Diagnoses / Procedures Referred By Ibrahima t Referred To Contact BR IMAGING Diagnoses Encounter for screening mammogram for breast cancer Procedures JAY SCREENING SCREENING MAMMOGRAPHY BI 2-VIEW BREAST INC Jame Bustos MD [address] [place] [address] Br Imaging [address] [place] [address] Referral ID Status Reason Start Date Expiration Date V isits Requested Visits Authorized [id number] Closed Auto-Generate d Referral 05/02/2022 06/01/2023 1 1 [facility] for visit Narrative* Diagnostic Procedure Only (Routine) - Closed Specialty Diagnoses / Procedures Referred By Contac t Referred To Contact MR IMAGING Diagnoses Localized swelling, mass, or lump of right lower extremity Procedures MRI UPPER LEG WO/W IVCON RT MRI LOWER EXTREM OTH/THN JT W/O & W/CONTR Silva Rowland APRN.[employer] ENGINEERING [employer]ERSON [address] [place] [address] Mr Imaging Referral ID Status Reason Start Date Expiration Date Visits Re quested Visits Authorized [id number] Closed 09/21/2021 10/21/2021 1 [facility] Procedure Only (Routine) - Closed Specialty Diagnoses / Procedures Referred By Ibrahima dick Referred To Contact BR IMAGING Diagnoses Encounter for screening mammogram for breast cancer Procedures JAY SCREENING SCREENING MAMMOGRAPHY BI 2-VIEW BREAST INC Jame Bustos MD [address] [place] [address] Br Imaging [address] [place] [address] Referral ID Status Reason Start Date Expiration Date V isits Requested Visits Authorized [id number] Closed Auto-Generate d Referral 05/02/2022 06/01/2023 1 1 [facility] Summary Purpose Family History No Family History Records FoundNo Family History Records FoundNo Family History Records FoundNo Family History Records FoundNo Family History Records Found Advance Directives No Advanced Directives Records FoundDocuments on File Type Date Recorded Patient Hospital Chief Financial Officer Expl anation Advance Directive(s) Advance Directive(s) 04/25/2021 [...] Documents on File Type Date Recorded Patient Hospital Chief Financial Officer Expl anation Advance Directive(s) Advance Directive(s) 04/25/2021 [...] Documents on File Type Date Recorded Patient Hospital Chief Financial Officer Expl anation Advance Directive(s) Advance Directive(s) 07/30/2018 8:17 AM Documents on File Type Date Recorded Patient Hospital Chief Financial Officer Expl anation Advance Directive(s) Advance Directive(s) 07/30/2018 [...] OTH/THN JT W/O & W/CONTR Silva Rowland APRN.ELECT[employer] ENGINEERING [employer]RA[employer]SPERSON [address] [place] [address] Mr Imaging Referral ID Status Reason Start Date Expiration Date Visits Requested Visits Authorized [id number] Pending Review Auto-Generat ed Referral 09/06/2021 10/06/2022 [...] MD [address] [place] [address] [facility] [address] [place] [address] Referral ID Status Reason Start Date Expiration Date Visits Requested Visits Authorized [id number] Pending Review Financial Clearance Required - [employer] 04/24/2022 04/24/2023 99 99 Specialty Diagnoses / Procedures Referred By Contac t Referred To Contact Gastroenterology Diagnoses Chronic diarrhea Procedures CONSULT TO GASTROENTEROLOGY OFFICE/OUTPATIENT [facility] 60-74 MINUTES Silva Plasencia APRN.E[employer]INEER[employer]ERSON [address] [place] [address] Referral ID Status Reason Start Date Expiration Date Visits Requested Visits Authorized [id number] Pending Review PCP Requested Referral 05/02/2022 05/02/2023 1 1 Specialty Diagnoses / Procedures Referred By Contac t Referred To Contact Erin Plasencia APRN.ELECT[employer] ENGINEERING [employer]ERSON [address] [place] [address] Referral ID Status Reason Start Date Expiration Date Visits Re quested Visits Authorized [id number] Closed 1 1 Referral ID Status Reason Start Date Expiration Date Visits Re quested Visits Authorized [id number] Closed 1 1 Specialty Diagnoses / Procedures Referred By Contac t Referred To Contact Gastroenterology Diagnoses Pre-transplant evaluation for end stage renal disease Awaiting organ transplant Procedures CONSULT TO GASTROENTEROLOGY OFFICE/OUTPATIENT [facility] 60-74 MINUTES Kel Victoria MD [address] [place] [address] Referral ID Status Reason Start Date Expiration Date Visits Requested Visits Authorized [id number] Pending Review PCP Requested Referral 10/03/2022 09/26/2023 1 1 Specialty Diagnoses / Procedures Referred By Contac t Referred To Contact Cardiology Diagnoses Pre-transplant evaluation for end stage renal disease Pre-operative cardiovascular examination History of heart artery stent Procedures CONSULT TO CARDIOLOGY OFFICE/OUTPATIENT [facility] 60-74 MINUTES Kel Victoria MD [address] [place] [address] Referral ID Status Reason Start Date Expiration Date Visits Requested Visits Authorized [id number] Pending Review PCP Requested Referral 10/03/2022 09/26/2023 1 1 Specialty Diagnoses / Procedures Referred By Contac t Referred To Contact Diagnoses Type 2 diabetes mellitus with hyperosmolarity 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, with long-term current use of insulin (HCC) Ramin Mack PA-C [address] [place] [address] Referral ID Status Reason Start Date Expiration Date Visits Re quested Visits Authorized [id number] Closed 1 1 Specialty Diagnoses / Procedures Referred By Geminiac t Referred To Contact Diagnoses Pre-transplant evaluation for kidney transplant Procedures CONSULT TO HEPATOLOGY OFFICE/OUTPATIENT [facility] 60-74 MINUTES Kel Victoria MD [address] [facility] [place] [address] Referral ID Status Reason Start Date Expiration Date Visits Requested Visits Authorized [id number] Pending Review PCP Requested Referral 12/19/2023 1 1 Specialty Diagnoses / Procedures Referred By Ibrahima t Referred To Contact Diagnoses Preop cardiovascular exam Procedures CARDIOVASCULAR MEDICINE OP FOLLOW UP APPT ORDER Lizeth Bey MD [address] [place] [id number] Referral ID Status Reason Start Date Expiration Date Visits Requested Visits Authorized [id number] Ref Not Required PCP Requested Referral 01/10/2023 01/10/2024 1 1 Additional Source Comments INFORMATION SOURCE (unrecogn ized section and content) DATE CREATED AUTHOR AUTHOR'S ORGANIZ ATION 12/07/2019 [facility] DATE CREATED AUTHOR AUTHOR'S ORGANIZ ATION 05/03/2020 [facility] DATE CREATED AUTHOR AUTHOR'S ORGANIZ ATION 01/12/2023 [facility] DATE CREATED AUTHOR AUTHOR'S ORGANIZ ATION 04/05/2023 [facility] Source Comments (unrecognize d section and content) In the event this informatio n is protected by the Federal Confidentiality of Alcohol and Drug Abuse Patient Records regulations: The Federal rules restrict any use of the information to criminally investigate or prosecute any alcohol or drug abuse patient.[facility] the event this information is protected by the Federal Confidentiality of Alcohol and Drug Abuse Patient Records regulations: The Federal rules restrict any use of the information to criminally investigate or prosecute any alcohol or drug abuse patient.[facility] the event this information is protected by the Federal Confidentiality of Alcohol and Drug Abuse Patient Records regulations: The Federal rules restrict any use of the information to criminally investigate or prosecute any alcohol or drug abuse patient.[facility] the event this information is protected by the Federal Confidentiality of Alcohol and Drug Abuse Patient Records regulations: The Federal rules restrict any use of the information to criminally investigate or prosecute any alcohol or drug abuse patient.[facility] the event this information is protected by the Federal Confidentiality of Alcohol and Drug Abuse Patient Records regulations: The Federal rules restrict any use of the information to criminally investigate or prosecute any alcohol or drug abuse patient.[facility] the event this information is protected by the Federal Confidentiality of Alcohol and Drug Abuse Patient Records regulations: The Federal rules restrict any use of the information to criminally investigate or prosecute any alcohol or drug abuse patient.[facility] the event this information is protected by the Federal Confidentiality of Alcohol and Drug Abuse Patient Records regulations: The Federal rules restrict any use of the information to criminally investigate or prosecute any alcohol or drug abuse patient.[facility] the event this information is protected by the Federal Confidentiality of Alcohol and Drug Abuse Patient Records regulations: The Federal rules restrict any use of the information to criminally investigate or prosecute any alcohol or drug abuse patient.[facility] Hospital[facility] the event this information is protected by the Federal Confidentiality of Alcohol and Drug Abuse Patient Records regulations: The Federal rules restrict any use of the information to criminally investigate or prosecute any alcohol or drug abuse patient.[facility] Hospital[facility] the event this information is protected by the Federal Confidentiality of Alcohol and Drug Abuse Patient Records regulations: The Federal rules restrict any use of the information to criminally investigate or prosecute any alcohol or drug abuse patient.[facility] Hospital[facility] the event this information is protected by the Federal Confidentiality of Alcohol and Drug Abuse Patient Records regulations: The Federal rules restrict any use of the information to criminally investigate or prosecute any alcohol or drug abuse patient.[facility] Hospital[facility] the event this information is protected by the Federal Confidentiality of Alcohol and Drug Abuse Patient Records regulations: The Federal rules restrict any use of the information to criminally investigate or prosecute any alcohol or drug abuse patient.[facility] HospitalIn the event this information is protected by the Federal Confidentiality of Alcohol and Drug Abuse Patient Records regulations: The Federal rules restrict any use of the information to criminally investigate or prosecute any alcohol or drug abuse patient.[facility] HospitalIn the event this information is protected by the Federal Confidentiality of Alcohol and Drug Abuse Patient Records regulations: The Federal rules restrict any use of the information to criminally investigate or prosecute any alcohol or drug abuse patient.[facility] HospitalIn the event this information is protected by the Federal Confidentiality of Alcohol and Drug Abuse Patient Records regulations: The Federal rules restrict any use of the information to criminally investigate or prosecute any alcohol or drug abuse patient.[facility] HospitalIn the event this information is protected by the Federal Confidentiality of Alcohol and Drug Abuse Patient Records regulations: The Federal rules restrict any use of the information to criminally investigate or prosecute any alcohol or drug abuse patient.[facility] HospitalIn the event this information is protected by the Federal Confidentiality of Alcohol and Drug Abuse Patient Records regulations: The Federal rules restrict any use of the information to criminally investigate or prosecute any alcohol or drug abuse patient.[facility] HospitalIn the event this information is protected by the Federal Confidentiality of Alcohol and Drug Abuse Patient Records regulations: The Federal rules restrict any use of the information to criminally investigate or prosecute any alcohol or drug abuse patient.[facility] HospitalIn the event this information is protected by the Federal Confidentiality of Alcohol and Drug Abuse Patient Records regulations: The Federal rules restrict any use of the information to criminally investigate or prosecute any alcohol or drug abuse patient.[facility] HospitalIn the event this information is protected by the Federal Confidentiality of Alcohol and Drug Abuse Patient Records regulations: The Federal rules restrict any use of the information to criminally investigate or prosecute any alcohol or drug abuse patient.[facility] HospitalIn the event this information is protected by the Federal Confidentiality of Alcohol and Drug Abuse Patient Records regulations: The Federal rules restrict any use of the information to criminally investigate or prosecute any alcohol or drug abuse patient.[facility] HospitalIn the event this information is protected by the Federal Confidentiality of Alcohol and Drug Abuse Patient Records regulations: The Federal rules restrict any use of the information to criminally investigate or prosecute any alcohol or drug abuse patient.[facility] HospitalIn the event this information is protected by the Federal Confidentiality of Alcohol and Drug Abuse Patient Records regulations: The Federal rules restrict any use of the information to criminally investigate or prosecute any alcohol or drug abuse patient.[facility] HospitalIn the event this information is protected by the Federal Confidentiality of Alcohol and Drug Abuse Patient Records regulations: The Federal rules restrict any use of the information to criminally investigate or prosecute any alcohol or drug abuse patient.[facility] HospitalIn the event this information is protected by the Federal Confidentiality of Alcohol and Drug Abuse Patient Records regulations: The Federal rules restrict any use of the information to criminally investigate or prosecute any alcohol or drug abuse patient.[facility] HospitalIn the event this information is protected by the Federal Confidentiality of Alcohol and Drug Abuse Patient Records regulations: The Federal rules restrict any use of the information to criminally investigate or prosecute any alcohol or drug abuse patient.[facility] HospitalIn the event this information is protected by the Federal Confidentiality of Alcohol and Drug Abuse Patient Records regulations: The Federal rules restrict any use of the information to criminally investigate or prosecute any alcohol or drug abuse patient.[facility] HospitalIn the event this information is protected by the Federal Confidentiality of Alcohol and Drug Abuse Patient Records regulations: The Federal rules restrict any use of the information to criminally investigate or prosecute any alcohol or drug abuse patient.[facility] HospitalIn the event this information is protected by the Federal Confidentiality of Alcohol and Drug Abuse Patient Records regulations: The Federal rules restrict any use of the information to criminally investigate or prosecute any alcohol or drug abuse patient.[facility] HospitalIn the event this information is protected by the Federal Confidentiality of Alcohol and Drug Abuse Patient Records regulations: The Federal rules restrict any use of the information to criminally investigate or prosecute any alcohol or drug abuse patient.[facility] HospitalIn the event this information is protected by the Federal Confidentiality of Alcohol and Drug Abuse Patient Records regulations: The Federal rules restrict any use of the information to criminally investigate or prosecute any alcohol or drug abuse patient.[facility] HospitalIn the event this information is protected by the Federal Confidentiality of Alcohol and Drug Abuse Patient Records regulations: The Federal rules restrict any use of the information to criminally investigate or prosecute any alcohol or drug abuse patient.[facility] HospitalIn the event this information is protected by the Federal Confidentiality of Alcohol and Drug Abuse Patient Records regulations: The Federal rules restrict any use of the information to criminally investigate or prosecute any alcohol or drug abuse patient.[facility] HospitalIn the event this information is protected by the Federal Confidentiality of Alcohol and Drug Abuse Patient Records regulations: The Federal rules restrict any use of the information to criminally investigate or prosecute any alcohol or drug abuse patient.[facility] HospitalIn the event this information is protected by the Federal Confidentiality of Alcohol and Drug Abuse Patient Records regulations: The Federal rules restrict any use of the information to criminally investigate or prosecute any alcohol or drug abuse patient.[facility] HospitalIn the event this information is protected by the Federal Confidentiality of Alcohol and Drug Abuse Patient Records regulations: The Federal rules restrict any use of the information to criminally investigate or prosecute any alcohol or drug abuse patient.[facility] HospitalIn the event this information is protected by the Federal Confidentiality of Alcohol and Drug Abuse Patient Records regulations: The Federal rules restrict any use of the information to criminally investigate or prosecute any alcohol or drug abuse patient.[facility] HospitalIn the event this information is protected by the Federal Confidentiality of Alcohol and Drug Abuse Patient Records regulations: The Federal rules restrict any use of the information to criminally investigate or prosecute any alcohol or drug abuse patient.[facility] HospitalIn the event this information is protected by the Federal Confidentiality of Alcohol and Drug Abuse Patient Records regulations: The Federal rules restrict any use of the information to criminally investigate or prosecute any alcohol or drug abuse patient.[facility] HospitalIn the event this information is protected by the Federal Confidentiality of Alcohol and Drug Abuse Patient Records regulations: The Federal rules restrict any use of the information to criminally investigate or prosecute any alcohol or drug abuse patient.[facility] HospitalIn the event this information is protected by the Federal Confidentiality of Alcohol and Drug Abuse Patient Records regulations: The Federal rules restrict any use of the information to criminally investigate or prosecute any alcohol or drug abuse patient.[facility] HospitalIn the event this information is protected by the Federal Confidentiality of Alcohol and Drug Abuse Patient Records regulations: The Federal rules restrict any use of the information to criminally investigate or prosecute any alcohol or drug abuse patient.[facility] HospitalIn the event this information is protected by the Federal Confidentiality of Alcohol and Drug Abuse Patient Records regulations: The Federal rules restrict any use of the information to criminally investigate or prosecute any alcohol or drug abuse patient.[facility] HospitalIn the event this information is protected by the Federal Confidentiality of Alcohol and Drug Abuse Patient Records regulations: The Federal rules restrict any use of the information to criminally investigate or prosecute any alcohol or drug abuse patient.[facility] HospitalIn the event this information is protected by the Federal Confidentiality of Alcohol and Drug Abuse Patient Records regulations: The Federal rules restrict any use of the information to criminally investigate or prosecute any alcohol or drug abuse patient.[facility] HospitalIn the event this information is protected by the Federal Confidentiality of Alcohol and Drug Abuse Patient Records regulations: The Federal rules restrict any use of the information to criminally investigate or prosecute any alcohol or drug abuse patient.[facility] HospitalIn the event this information is protected by the Federal Confidentiality of Alcohol and Drug Abuse Patient Records regulations: The Federal rules restrict any use of the information to criminally investigate or prosecute any alcohol or drug abuse patient.[facility] HospitalIn the event this information is protected by the Federal Confidentiality of Alcohol and Drug Abuse Patient Records regulations: The Federal rules restrict any use of the information to criminally investigate or prosecute any alcohol or drug abuse patient.[facility] HospitalIn the event this information is protected by the Federal Confidentiality of Alcohol and Drug Abuse Patient Records regulations: The Federal rules restrict any use of the information to criminally investigate or prosecute any alcohol or drug abuse patient.[facility] HospitalIn the event this information is protected by the Federal Confidentiality of Alcohol and Drug Abuse Patient Records regulations: The Federal rules restrict any use of the information to criminally investigate or prosecute any alcohol or drug abuse patient.[facility] HospitalIn the event this information is protected by the Federal Confidentiality of Alcohol and Drug Abuse Patient Records regulations: The Federal rules restrict any use of the information to criminally investigate or prosecute any alcohol or drug abuse patient.[facility] HospitalIn the event this information is protected by the Federal Confidentiality of Alcohol and Drug Abuse Patient Records regulations: The Federal rules restrict any use of the information to criminally investigate or prosecute any alcohol or drug abuse patient.[facility] HospitalIn the event this information is protected by the Federal Confidentiality of Alcohol and Drug Abuse Patient Records regulations: The Federal rules restrict any use of the information to criminally investigate or prosecute any alcohol or drug abuse patient.[facility] HospitalIn the event this information is protected by the Federal Confidentiality of Alcohol and Drug Abuse Patient Records regulations: The Federal rules restrict any use of the information to criminally investigate or prosecute any alcohol or drug abuse patient.[facility] HospitalIn the event this information is protected by the Federal Confidentiality of Alcohol and Drug Abuse Patient Records regulations: The Federal rules restrict any use of the information to criminally investigate or prosecute any alcohol or drug abuse patient.[facility] HospitalIn the event this information is protected by the Federal Confidentiality of Alcohol and Drug Abuse Patient Records regulations: The Federal rules restrict any use of the information to criminally investigate or prosecute any alcohol or drug abuse patient.[facility] HospitalIn the event this information is protected by the Federal Confidentiality of Alcohol and Drug Abuse Patient Records regulations: The Federal rules restrict any use of the information to criminally investigate or prosecute any alcohol or drug abuse patient.[facility] HospitalIn the event this information is protected by the Federal Confidentiality of Alcohol and Drug Abuse Patient Records regulations: The Federal rules restrict any use of the information to criminally investigate or prosecute any alcohol or drug abuse patient.[facility] HospitalIn the event this information is protected by the Federal Confidentiality of Alcohol and Drug Abuse Patient Records regulations: The Federal rules restrict any use of the information to criminally investigate or prosecute any alcohol or drug abuse patient.[facility] HospitalIn the event this information is protected by the Federal Confidentiality of Alcohol and Drug Abuse Patient Records regulations: The Federal rules restrict any use of the information to criminally investigate or prosecute any alcohol or drug abuse patient.[facility] HospitalIn the event this information is protected by the Federal Confidentiality of Alcohol and Drug Abuse Patient Records regulations: The Federal rules restrict any use of the information to criminally investigate or prosecute any alcohol or drug abuse patient.[facility] HospitalIn the event this information is protected by the Federal Confidentiality of Alcohol and Drug Abuse Patient Records regulations: The Federal rules restrict any use of the information to criminally investigate or prosecute any alcohol or drug abuse patient.[facility] HospitalIn the event this information is protected by the Federal Confidentiality of Alcohol and Drug Abuse Patient Records regulations: The Federal rules restrict any use of the information to criminally investigate or prosecute any alcohol or drug abuse patient.[facility] HospitalIn the event this information is protected by the Federal Confidentiality of Alcohol and Drug Abuse Patient Records regulations: The Federal rules restrict any use of the information to criminally investigate or prosecute any alcohol or drug abuse patient.[facility] HospitalIn the event this information is protected by the Federal Confidentiality of Alcohol and Drug Abuse Patient Records regulations: The Federal rules restrict any use of the information to criminally investigate or prosecute any alcohol or drug abuse patient.[facility] HospitalIn the event this information is protected by the Federal Confidentiality of Alcohol and Drug Abuse Patient Records regulations: The Federal rules restrict any use of the information to criminally investigate or prosecute any alcohol or drug abuse patient.[facility] HospitalIn the event this information is protected by the Federal Confidentiality of Alcohol and Drug Abuse Patient Records regulations: The Federal rules restrict any use of the information to criminally investigate or prosecute any alcohol or drug abuse patient.[facility] HospitalIn the event this information is protected by the Federal Confidentiality of Alcohol and Drug Abuse Patient Records regulations: The Federal rules restrict any use of the information to criminally investigate or prosecute any alcohol or drug abuse patient.[facility] HospitalIn the event this information is protected by the Federal Confidentiality of Alcohol and Drug Abuse Patient Records regulations: The Federal rules restrict any use of the information to criminally investigate or prosecute any alcohol or drug abuse patient.[facility] HospitalIn the event this information is protected by the Federal Confidentiality of Alcohol and Drug Abuse Patient Records regulations: The Federal rules restrict any use of the information to criminally investigate or prosecute any alcohol or drug abuse patient.[facility] HospitalIn the event this information is protected by the Federal Confidentiality of Alcohol and Drug Abuse Patient Records regulations: The Federal rules restrict any use of the information to criminally investigate or prosecute any alcohol or drug abuse patient.[facility] HospitalIn the event this information is protected by the Federal Confidentiality of Alcohol and Drug Abuse Patient Records regulations: The Federal rules restrict any use of the information to criminally investigate or prosecute any alcohol or drug abuse patient.[facility] HospitalIn the event this information is protected by the Federal Confidentiality of Alcohol and Drug Abuse Patient Records regulations: The Federal rules restrict any use of the information to criminally investigate or prosecute any alcohol or drug abuse patient.[facility] HospitalIn the event this information is protected by the Federal Confidentiality of Alcohol and Drug Abuse Patient Records regulations: The Federal rules restrict any use of the information to criminally investigate or prosecute any alcohol or drug abuse patient.[facility] HospitalIn the event this information is protected by the Federal Confidentiality of Alcohol and Drug Abuse Patient Records regulations: The Federal rules restrict any use of the information to criminally investigate or prosecute any alcohol or drug abuse patient.[facility] HospitalIn the event this information is protected by the Federal Confidentiality of Alcohol and Drug Abuse Patient Records regulations: The Federal rules restrict any use of the information to criminally investigate or prosecute any alcohol or drug abuse patient.[facility] HospitalIn the event this information is protected by the Federal Confidentiality of Alcohol and Drug Abuse Patient Records regulations: The Federal rules restrict any use of the information to criminally investigate or prosecute any alcohol or drug abuse patient.[facility] HospitalIn the event this information is protected by the Federal Confidentiality of Alcohol and Drug Abuse Patient Records regulations: The Federal rules restrict any use of the information to criminally investigate or prosecute any alcohol or drug abuse patient.[facility] HospitalIn the event this information is protected by the Federal Confidentiality of Alcohol and Drug Abuse Patient Records regulations: The Federal rules restrict any use of the information to criminally investigate or prosecute any alcohol or drug abuse patient.[facility] HospitalIn the event this information is protected by the Federal Confidentiality of Alcohol and Drug Abuse Patient Records regulations: The Federal rules restrict any use of the information to criminally investigate or prosecute any alcohol or drug abuse patient.[facility] HospitalIn the event this information is protected by the Federal Confidentiality of Alcohol and Drug Abuse Patient Records regulations: The Federal rules restrict any use of the information to criminally investigate or prosecute any alcohol or drug abuse patient.[facility] HospitalIn the event this information is protected by the Federal Confidentiality of Alcohol and Drug Abuse Patient Records regulations: The Federal rules restrict any use of the information to criminally investigate or prosecute any alcohol or drug abuse patient.[facility] HospitalIn the event this information is protected by the Federal Confidentiality of Alcohol and Drug Abuse Patient Records regulations: The Federal rules restrict any use of the information to criminally investigate or prosecute any alcohol or drug abuse patient.[facility] HospitalIn the event this information is protected by the Federal Confidentiality of Alcohol and Drug Abuse Patient Records regulations: The Federal rules restrict any use of the information to criminally investigate or prosecute any alcohol or drug abuse patient.[facility] HospitalIn the event this information is protected by the Federal Confidentiality of Alcohol and Drug Abuse Patient Records regulations: The Federal rules restrict any use of the information to criminally investigate or prosecute any alcohol or drug abuse patient.[facility] HospitalIn the event this information is protected by the Federal Confidentiality of Alcohol and Drug Abuse Patient Records regulations: The Federal rules restrict any use of the information to criminally investigate or prosecute any alcohol or drug abuse patient.[facility] HospitalIn the event this information is protected by the Federal Confidentiality of Alcohol and Drug Abuse Patient Records regulations: The Federal rules restrict any use of the information to criminally investigate or prosecute any alcohol or drug abuse patient.[facility] HospitalIn the event this information is protected by the Federal Confidentiality of Alcohol and Drug Abuse Patient Records regulations: The Federal rules restrict any use of the information to criminally investigate or prosecute any alcohol or drug abuse patient.[facility] HospitalIn the event this information is protected by the Federal Confidentiality of Alcohol and Drug Abuse Patient Records regulations: The Federal rules restrict any use of the information to criminally investigate or prosecute any alcohol or drug abuse patient.[facility] HospitalIn the event this information is protected by the Federal Confidentiality of Alcohol and Drug Abuse Patient Records regulations: The Federal rules restrict any use of the information to criminally investigate or prosecute any alcohol or drug abuse patient.[facility] HospitalIn the event this information is protected by the Federal Confidentiality of Alcohol and Drug Abuse Patient Records regulations: The Federal rules restrict any use of the information to criminally investigate or prosecute any alcohol or drug abuse patient.[facility] HospitalIn the event this information is protected by the Federal Confidentiality of Alcohol and Drug Abuse Patient Records regulations: The Federal rules restrict any use of the information to criminally investigate or prosecute any alcohol or drug abuse patient.[facility] HospitalIn the event this information is protected by the Federal Confidentiality of Alcohol and Drug Abuse Patient Records regulations: The Federal rules restrict any use of the information to criminally investigate or prosecute any alcohol or drug abuse patient.[facility] HospitalIn the event this information is protected by the Federal Confidentiality of Alcohol and Drug Abuse Patient Records regulations: The Federal rules restrict any use of the information to criminally investigate or prosecute any alcohol or drug abuse patient.[facility] HospitalIn the event this information is protected by the Federal Confidentiality of Alcohol and Drug Abuse Patient Records regulations: The Federal rules restrict any use of the information to criminally investigate or prosecute any alcohol or drug abuse patient.[facility] HospitalIn the event this information is protected by the Federal Confidentiality of Alcohol and Drug Abuse Patient Records regulations: The Federal rules restrict any use of the information to criminally investigate or prosecute any alcohol or drug abuse patient.[facility] HospitalIn the event this information is protected by the Federal Confidentiality of Alcohol and Drug Abuse Patient Records regulations: The Federal rules restrict any use of the information to criminally investigate or prosecute any alcohol or drug abuse patient.[facility] HospitalIn the event this information is protected by the Federal Confidentiality of Alcohol and Drug Abuse Patient Records regulations: The Federal rules restrict any use of the information to criminally investigate or prosecute any alcohol or drug abuse patient.[facility] HospitalIn the event this information is protected by the Federal Confidentiality of Alcohol and Drug Abuse Patient Records regulations: The Federal rules restrict any use of the information to criminally investigate or prosecute any alcohol or drug abuse patient.[facility] HospitalIn the event this information is protected by the Federal Confidentiality of Alcohol and Drug Abuse Patient Records regulations: The Federal rules restrict any use of the information to criminally investigate or prosecute any alcohol or drug abuse patient.[facility] HospitalIn the event this information is protected by the Federal Confidentiality of Alcohol and Drug Abuse Patient Records regulations: The Federal rules restrict any use of the information to criminally investigate or prosecute any alcohol or drug abuse patient.[facility] HospitalIn the event this information is protected by the Federal Confidentiality of Alcohol and Drug Abuse Patient Records regulations: The Federal rules restrict any use of the information to criminally investigate or prosecute any alcohol or drug abuse patient.[facility] HospitalIn the event this information is protected by the Federal Confidentiality of Alcohol and Drug Abuse Patient Records regulations: The Federal rules restrict any use of the information to criminally investigate or prosecute any alcohol or drug abuse patient.[facility] HospitalIn the event this information is protected by the Federal Confidentiality of Alcohol and Drug Abuse Patient Records regulations: The Federal rules restrict any use of the information to criminally investigate or prosecute any alcohol or drug abuse patient.[facility] HospitalIn the event this information is protected by the Federal Confidentiality of Alcohol and Drug Abuse Patient Records regulations: The Federal rules restrict any use of the information to criminally investigate or prosecute any alcohol or drug abuse patient.[facility] HospitalIn the event this information is protected by the Federal Confidentiality of Alcohol and Drug Abuse Patient Records regulations: The Federal rules restrict any use of the information to criminally investigate or prosecute any alcohol or drug abuse patient.[facility] HospitalIn the event this information is protected by the Federal Confidentiality of Alcohol and Drug Abuse Patient Records regulations: The Federal rules restrict any use of the information to criminally investigate or prosecute any alcohol or drug abuse patient.[facility] HospitalIn the event this information is protected by the Federal Confidentiality of Alcohol and Drug Abuse Patient Records regulations: The Federal rules restrict any use of the information to criminally investigate or prosecute any alcohol or drug abuse patient.[facility] HospitalIn the event this information is protected by the Federal Confidentiality of Alcohol and Drug Abuse Patient Records regulations: The Federal rules restrict any use of the information to criminally investigate or prosecute any alcohol or drug abuse patient.[facility] HospitalIn the event this information is protected by the Federal Confidentiality of Alcohol and Drug Abuse Patient Records regulations: The Federal rules restrict any use of the information to criminally investigate or prosecute any alcohol or drug abuse patient.[facility] HospitalIn the event this information is protected by the Federal Confidentiality of Alcohol and Drug Abuse Patient Records regulations: The Federal rules restrict any use of the information to criminally investigate or prosecute any alcohol or drug abuse patient.[facility] HospitalIn the event this information is protected by the Federal Confidentiality of Alcohol and Drug Abuse Patient Records regulations: The Federal rules restrict any use of the information to criminally investigate or prosecute any alcohol or drug abuse patient.[facility] HospitalIn the event this information is protected by the Federal Confidentiality of Alcohol and Drug Abuse Patient Records regulations: The Federal rules restrict any use of the information to criminally investigate or prosecute any alcohol or drug abuse patient.[facility] HospitalIn the event this information is protected by the Federal Confidentiality of Alcohol and Drug Abuse Patient Records regulations: The Federal rules restrict any use of the information to criminally investigate or prosecute any alcohol or drug abuse patient.[facility] HospitalIn the event this information is protected by the Federal Confidentiality of Alcohol and Drug Abuse Patient Records regulations: The Federal rules restrict any use of the information to criminally investigate or prosecute any alcohol or drug abuse patient.[facility] HospitalIn the event this information is protected by the Federal Confidentiality of Alcohol and Drug Abuse Patient Records regulations: The Federal rules restrict any use of the information to criminally investigate or prosecute any alcohol or drug abuse patient.[facility] HospitalIn the event this information is protected by the Federal Confidentiality of Alcohol and Drug Abuse Patient Records regulations: The Federal rules restrict any use of the information to criminally investigate or prosecute any alcohol or drug abuse patient.[facility] HospitalIn the event this information is protected by the Federal Confidentiality of Alcohol and Drug Abuse Patient Records regulations: The Federal rules restrict any use of the information to criminally investigate or prosecute any alcohol or drug abuse patient.[facility] HospitalIn the event this information is protected by the Federal Confidentiality of Alcohol and Drug Abuse Patient Records regulations: The Federal rules restrict any use of the information to criminally investigate or prosecute any alcohol or drug abuse patient.[facility] HospitalIn the event this information is protected by the Federal Confidentiality of Alcohol and Drug Abuse Patient Records regulations: The Federal rules restrict any use of the information to criminally investigate or prosecute any alcohol or drug abuse patient.[facility] HospitalIn the event this information is protected by the Federal Confidentiality of Alcohol and Drug Abuse Patient Records regulations: The Federal rules restrict any use of the information to criminally investigate or prosecute any alcohol or drug abuse patient.[facility] HospitalIn the event this information is protected by the Federal Confidentiality of Alcohol and Drug Abuse Patient Records regulations: The Federal rules restrict any use of the information to criminally investigate or prosecute any alcohol or drug abuse patient.[facility] HospitalIn the event this information is protected by the Federal Confidentiality of Alcohol and Drug Abuse Patient Records regulations: The Federal rules restrict any use of the information to criminally investigate or prosecute any alcohol or drug abuse patient.[facility] HospitalIn the event this information is protected by the Federal Confidentiality of Alcohol and Drug Abuse Patient Records regulations: The Federal rules restrict any use of the information to criminally investigate or prosecute any alcohol or drug abuse patient.[facility] Reason for Visit (unrecogniz ed section [...] NEW HIGH MDM 60-74 MINUTES Josse Lance, WORM PICKER.BINDING STITCHER [address] [place] [address] Referral ID Status Reason Start Date Expiration Date V isits Requested Visits Authorized [id number] Closed PCP Requested Referral 07/03/2021 07/03/2022 1 [...] PELVIC NONOBSTETRIC IMAGE DCMTN LIMITED/F/U Jaci Lucero APRN.ELECTRONIC ENGINEERING DRAFTSPERSON [address] [place] [address] [facility] Referral ID Status Reason Start Date Expiration Date V isits Requested Visits Authorized [id number] Closed Auto-Generate d Referral 10/20/2021 11/19/2022 1 [...] Tramadol - itching Reason Onset Date Comments [facility] 08/28/2022 Telephonic outre ach Reason Onset Date Comments [facility] 08/29/2022 Telephonic outre ach Reason Onset Date Comments Opened In Error 08/29/2022 Reason Comments Patient Question Follow Up Returned patients ca ll. She had a question about seeing two Cardiologists. I let her know that she should see the transplant topper packer here at [facility] which she is scheduled for in [...] C are Cancellation Reason Onset Date Comments [facility] 10/26/2022 Routine outreach Reason Comments Rash Around left side of body, itching Reason Comments Left Hip Pain Fall Reason Onset Date Comments Refill Request 11/20/2022 Reason Onset Date Comments [facility] 11/22/2022 Routine outreach Reason Comments Follow Up fell 3 week ago and 1 week ago crashed electric wheelchair Reason Onset Date Comments [facility] 12/20/2022 Routine outreach Reason Comments Letter Reason Comments Recheck ER follow up, abdomi nal pain Reason Comments ED Follow-up Reason Comments New Patient Hep C Protocol, Pre Kidney TXP Specialty Diagnoses / Procedures Referred By Contact Referred To Contact Gastroenterology / TRANSPLANT Diagnoses Pre-transplant evaluation for end stage renal disease Awaiting organ transplant Procedures CONSULT TO GASTROENTEROLOGY OFFICE/OUTPATIENT [facility] 60-74 MINUTES Kel Victoria MD [address] [place] [address] [facility] [address] [id number] Referral ID Status Reason Start Date Expiration Date V isits Requested Visits Authorized [id number] Closed PCP Requested Referral Patient Cleared - INN Insurance Found 04/30/2022 04/29/2023 1 1 Specialty Diagnoses / Procedures Referred By Ibrahima dick Referred To Contact Cardiology / TRANSPLANT Diagnoses Pre-transplant evaluation for end stage renal disease Pre-operative cardiovascular examination History of heart artery stent Procedures CONSULT TO CARDIOLOGY OFFICE/OUTPATIENT [facility] 60-74 MINUTES Kel Victoria MD [address] [place] [address] [facility] [address] [address] Referral ID Status Reason Start Date Expiration Date V isits Requested Visits Authorized [id number] Closed PCP Requested Referral Patient Cleared - [...] Care Teams (unrecognized sec tion and content) Lace Winder Relationship Specialty Start Date End Date Jame Hunt MD [address] [place] [address] PCP - General Internal Medicine 08/15/16 Kmi La, [address] [id number] Pharmacist Pharmacy 07/17/18 Vaughn Reeves, NIEVES [facility] [address] [place] [address] Registered Nurse Transplant Center 04/13/19 Ricki Dc MD [address] [address] Turkey Cleaner Nephrology 01/11/20 Vicente Vargas MD [address] [place] [address] Cardiology 04/05/21 Lace Winder Relationship Specialty Start Date End Date Jame Hunt MD [address] [place] [address] PCP - General Internal Medicine 08/15/16 Kim La, Formerly [facility] [address] [place] [address] [id number] Pharmacist Pharmacy 07/17/18 Vaughn Reeves RN [facility] [address] [place] [address] Registered Nurse Transplant Center 04/13/19 Ricki Dc MD [address] [place] [address] [place] [address] Turkey Cleaner Nephrology 01/11/20 Vicente Vargas MD [address] [place] [address] Cardiology 04/05/21 Lace Winder Relationship Specialty Start Date End Date Jame Hunt MD [address] [place] [address] PCP - General Internal Medicine 08/15/16 Kim La, Formerly [facility] [address] [place] [address] Pharmacist Pharmacy 07/17/18 Vaughn Reeves RN [facility] [address] [place] [address] Registered Nurse Transplant Center 04/13/19 Ricki Dc MD [address] [place] [address] [place] [address] Turkey Cleaner Nephrology 01/11/20 Vicente Vargas MD [address] [place] [address] Cardiology 04/05/21 Lace Winder Relationship Specialty Start Date End Date Jame Hunt MD [address] [place] [address] PCP - General Internal Medicine 08/15/16 Kim La, Formerly [facility] [address] [place] [address] Pharmacist Pharmacy 07/17/18 Vaughn Reeves RN [facility] [address] [place] [address] Registered Nurse Transplant Center 04/13/19 Ricki Dc MD [address] [place] [place] [address] Turkey Cleaner Nephrology 01/11/20 Vicente Vargas MD [address] [place] [address] Cardiology 04/05/21 Lace Winder Relationship Specialty Start Date End Date Jame Hunt MD [address] [place] [address] PCP - General Internal Medicine 08/15/16 [facility] [address] [place] [address] Pharmacist Pharmacy 07/17/18 Vaughn Reeves, NIEVES [facility] [address] [place] [address] Registered Nurse Transplant Center 04/13/19 Ricki Dc MD [address] [place] [address] [place] [address], [place] [address] Turkey Cleaner Nephrology 01/11/20 Vicente Vargas MD [address] [place] [address] Cardiology 04/05/21 Lace Winder Relationship Specialty Start Date End Date Jame Hunt MD [address] [place] [address] PCP - General Internal Medicine 08/15/16 [facility] [address] [place] [address] Pharmacist Pharmacy 07/17/18 Vaughn Reeves RN [facility] [address] [place] [address] Registered Nurse Transplant Center 04/13/19 Ricki Dc MD [address] [place] [address] [place] [address] Turkey Cleaner Nephrology 01/11/20 Vicente Vargas MD [address] [place] [address] Cardiology 04/05/21 Lace Winder Relationship Specialty Start Date End Date Jame Hunt MD [address] [place] [address] PCP - General Internal Medicine 08/15/16 Kim La, Formerly [facility] [address] [place] [address] Pharmacist Pharmacy 07/17/18 Vaughn Reeves RN [facility] [address] [place] [address] Registered Nurse Transplant Center 04/13/19 Ricki Dc MD [address] [place] [address] [place] [address], [place] [address] Turkey Cleaner Nephrology 01/11/20 Vicente Vargas MD [address] [place] [address] Cardiology 04/05/21 Lace Winder Relationship Specialty Start Date End Date Jame Hunt MD [address] [facility] [place] [place] [address] PCP - General Internal Medicine 08/15/16 Kim La, Formerly [facility] [address] [place] [address] Pharmacist Pharmacy 07/17/18 Vaughn Reeves RN [facility] [address] [place] [address] Registered Nurse Transplant Center 04/13/19 Ricki Dc MD [address] [place] [address] [place] [address], [place] [address] Turkey Cleaner Nephrology 01/11/20 Vicente Vargas MD [address] [place] [address] Cardiology 04/05/21 Lace Winder Relationship Specialty Start Date End Date Jame Hunt MD [address] [place] [address] PCP - General Internal Medicine 08/15/16 Kim La, Formerly [facility] [address] [place] [address] Pharmacist Pharmacy 07/17/18 Vaughn Reeves RN [facility] [address] [place] [address] Registered Nurse Transplant Center 04/13/19 Ricki Dc MD [address] [place] [address] Turkey Cleaner Nephrology 01/11/20 Vicente Vargas MD [address] [place] [address] Cardiology 04/05/21 Lace Winder Relationship Specialty Start Date End Date Jame Hunt MD [address] [place] [address] PCP - General Internal Medicine 08/15/16 [facility] [address] [place] [address] Pharmacist Pharmacy 07/17/18 Vaughn Reeves RN [facility] [address] [place] [address] Registered Nurse Transplant Center 04/13/19 Ricki Dc MD [address] [place] [place] [address] Turkey Cleaner Nephrology 01/11/20 Vicente Vargas MD [address] [place] [address] Cardiology 04/05/21 Lace Winder Relationship Specialty Start Date End Date Jame Hunt MD [address] [facility] [place] [address] PCP - General Internal Medicine 08/15/16 [facility] [address] [place] [address] Pharmacist Pharmacy 07/17/18 Vaughn Reeves RN [facility] [address] [place] [address] Registered Nurse Transplant Center 04/13/19 Ricki Dc MD [address] [place] [address] Turkey Cleaner Nephrology 01/11/20 Vicente Vargas MD [address] [place] [address] Cardiology 04/05/21 Lace Winder Relationship Specialty Start Date End Date Jame Hunt MD [address] [place] [address] PCP - General Internal Medicine 08/15/16 [facility] [address] [place] [address] Pharmacist Pharmacy 07/17/18 Vaughn Reeves, NIEVES [facility] [address] [place] [address] Registered Nurse Transplant Center 04/13/19 Ricki Dc MD [address] [place] [address] Turkey Cleaner Nephrology 01/11/20 Vicente Vargas MD [address] [place] [address] Cardiology 04/05/21 Lace Winder Relationship Specialty Start Date End Date Jame Hunt MD [address] [facility] [place] [address] PCP - General Internal Medicine 08/15/16 [facility] Kim, Former[facility] [address] [place] [address] Pharmacist Pharmacy 07/17/18 Vaughn Reeves, NIEVES [facility] [address] [place] [address] Registered Nurse Transplant Center 04/13/19 Ricki Dc MD [address] [place] [address] Turkey Cleaner Nephrology 01/11/20 Vicente Vargas MD [address] [place] [address] Cardiology 04/05/21 Lace Winder Relationship Specialty Start Date End Date Jame Hunt MD [address] [facility] [place] [place] [address] PCP - General Internal Medicine 08/15/16 Kim La, Formerly [facility] [address] [place] [address] Pharmacist Pharmacy 07/17/18 Vaughn Reeves RN [facility] [address] [place] [address] Registered Nurse Transplant Center 04/13/19 Ricki Dc MD [address] [place] [address] Turkey Cleaner Nephrology 01/11/20 Vicente Vargas MD [address] [place] [address] Cardiology 04/05/21 Lace Winder Relationship Specialty Start Date End Date Jame Hunt MD [address] [place] [address] PCP - General Internal Medicine 08/15/16 AbhinavKim harris, Formerly [facility] [address] [place] [address] Pharmacist Pharmacy 07/17/18 Vaughn Reeves RN [facility] [place] [address] [place] [address] Registered Nurse Transplant Center 04/13/19 Ricki Dc MD [address] [place] [address] [place] [address] Turkey Cleaner Nephrology 01/11/20 Vicente Vargas MD [address] [place] [address] Cardiology 04/05/21 Lace Winder Relationship Specialty Start Date End Date Jame Hunt MD [address] [place] [address] PCP - General Internal Medicine 08/15/16 AbhinavKim harris, Formerly [facility] [address] [place] [address] Pharmacist Pharmacy 07/17/18 Vaughn Reeves RN [facility] [address] [place] [address] Registered Nurse Transplant Center 04/13/19 Ricki Dc MD [address] [place] [address] [place] [address] Turkey Cleaner Nephrology 01/11/20 Vicente Vargas MD [address] [place] [address] Cardiology 04/05/21 Lace Winder Relationship Specialty Start Date End Date Jame Hunt MD [address] [place] [address] PCP - General Internal Medicine 08/15/16 Kim La, Formerly [facility] [address] [place] [address] Pharmacist Pharmacy 07/17/18 Vaughn Reeves, RN [facility] [place] [address] [place] [address] Registered Nurse Transplant Center 04/13/19 Ricki Dc MD [address] [place] [place] [address] Turkey Cleaner Nephrology 01/11/20 Vicente Vargas MD [address] [place] [address] Cardiology 04/05/21 Lace Winder Relationship Specialty Start Date End Date Jame Hunt MD [address] [facility] [place] [place] [address] PCP - General Internal Medicine 08/15/16 Kim La, Formerly [facility] [address] [place] [address] Pharmacist Pharmacy 07/17/18 Vaughn Reeves, RN [facility] [address] [place] [address] Registered Nurse Transplant Center 04/13/19 Ricki Dc MD [address] [place] [place] [address] Turkey Cleaner Nephrology 01/11/20 Vicente Vargas MD [address] [place] [address] Cardiology 04/05/21 Roxie Palmer, NIEVES [address] [place] [address] Crane Service Technician 09/11/21 Lace Winder Relationship Specialty Start Date End Date Jame Hunt MD [address] [place] [address] PCP - General Internal Medicine 08/15/16 [facility] [address] [place] [address] Pharmacist Pharmacy 07/17/18 Vaughn Reeves, NIEVES [facility] [address] [place] [address] Registered Nurse Transplant Center 04/13/19 Ricki Dc MD [address] [place] [address] [place] [address] Turkey Cleaner Nephrology 01/11/20 Vicente Vargas MD [address] [place] [address] Cardiology 04/05/21 Roxie Palmer, NIEVES [address] [place] [address] Crane Service Technician 09/11/21 Lace Winder Relationship Specialty Start Date End Date Jame Hunt MD [address] [place] [address] PCP - General Internal Medicine 08/15/16 [facility] [address] [place] [address] Pharmacist Pharmacy 07/17/18 Vaughn Reeves RN [facility] [address] [place] [address] Registered Nurse Transplant Center 04/13/19 Ricki Dc MD [address] [place] [address] [place] [address] Turkey Cleaner Nephrology 01/11/20 Vicente Vargas MD [address] [place] [address] Cardiology 04/05/21 Roxie Palmer RN [address] [place] [address] Crane Service Technician 09/11/21 Lace Winder Relationship Specialty Start Date End Date Jame Hunt MD [address] [place] [address] PCP - General Internal Medicine 08/15/16 Kim La, Formerly [facility] [address] [place] [address] Pharmacist Pharmacy 07/17/18 Vaughn Reeves RN [facility] [address] [place] [address] Registered Nurse Transplant Center 04/13/19 Ricki Dc MD [address] [address] Turkey Cleaner Nephrology 01/11/20 Vicente Vargas MD [address] [place] [address] Cardiology 04/05/21 Roxie Palmer RN [address] [place] [address] Crane Service Technician 09/11/21 Lace Winder Relationship Specialty Start Date End Date Jame Hunt MD [address] [place] [address] PCP - General Internal Medicine 08/15/16 Kim La, Formerly [facility] [address] [place] [address] Pharmacist Pharmacy 07/17/18 Vaughn Reeves RN [facility] [address] [place] [address] Registered Nurse Transplant Center 04/13/19 Ricki Dc MD [address] [address] Turkey Cleaner Nephrology 01/11/20 Vicente Vargas MD [address] [place] [address] Cardiology 04/05/21 Roxie Palmer, NIEVES [address] [place] [address] Crane Service Technician 09/11/21 Lace Winder Relationship Specialty Start Date End Date Jame Hunt MD [address] [place] [address] PCP - General Internal Medicine 08/15/16 Kim La, Formerly [facility] [address] [place] [address] Pharmacist Pharmacy 07/17/18 Vaughn Reeves RN [facility] [address] [place] [address] Registered Nurse Transplant Center 04/13/19 Ricki Dc MD [address] [place] [address] [place] [address] Turkey Cleaner Nephrology 01/11/20 Vicente Vargas MD [address] [place] [address] Cardiology 04/05/21 Roxie Palmer RN [address] [place] [address] Crane Service Technician 09/11/21 Lace Winder Relationship Specialty Start Date End Date Jame Hunt MD [address] [place] [address] PCP - General Internal Medicine 08/15/16 Kim La, Formerly [facility] [address] [place] [address] Pharmacist Pharmacy 07/17/18 Vaughn Reeves RN [facility] [address] [place] [address] Registered Nurse Transplant Center 04/13/19 Ricki Dc MD [address] [place] [address] [place] [address] Turkey Cleaner Nephrology 01/11/20 Vicente Vargas MD [address] [place] [address] Cardiology 04/05/21 Roxie Palmer, NIEVES [address] [place] [address] Crane Service Technician 09/11/21 Lace Winder Relationship Specialty Start Date End Date Jame Hunt MD [address] [place] [address] PCP - General Internal Medicine 08/15/16 AbhinavKim harris, Formerly [facility] [address] [place] [address] Pharmacist Pharmacy 07/17/18 Vaughn Reeves RN [facility] [address] [place] [address] Registered Nurse Transplant Center 04/13/19 Ricki Dc MD [address] [place] [address] [place] [address] Turkey Cleaner Nephrology 01/11/20 Vicente Vargas MD [address] [place] [address] Cardiology 04/05/21 Roxie Palmer RN [address] [place] [address] Crane Service Technician 09/11/21 Lace Winder Relationship Specialty Start Date End Date Jame Hunt MD [address] [place] [address] PCP - General Internal Medicine 08/15/16 Kim La, Former[facility] [address] [place] [address] Pharmacist Pharmacy 07/17/18 Vaughn Reeves RN [facility] [address] [place] [address] Registered Nurse Transplant Center 04/13/19 Ricki Dc MD [address] [place] [address] [place] [address] Turkey Cleaner Nephrology 01/11/20 Vicente Vargas MD [address] [place] [address] Cardiology 04/05/21 Roxie Palmer, NIEVES [address] [place] [address] Crane Service Technician 09/11/21 Lace Winder Relationship Specialty Start Date End Date Jame Hunt MD [address] [place] [address] PCP - General Internal Medicine 08/15/16 Kim La, Former[facility] [address] [place] [address] Pharmacist Pharmacy 07/17/18 Vaughn Reeves, NIEVES [facility] [address] [place] [address] Registered Nurse Transplant Center 04/13/19 Ricki Dc MD [address] [place] [address] [place] [address] Turkey Cleaner Nephrology 01/11/20 Vicente Vargas MD [address] [place] [address] Cardiology 04/05/21 Roxie Palmer RN [address] [place] [address] Crane Service Technician 09/11/21 Lace Winder Relationship Specialty Start Date End Date Jame Hunt MD [address] [place] [address] PCP - General Internal Medicine 08/15/16 Kim La, Former[facility] [address] [place] [address] Pharmacist Pharmacy 07/17/18 Vaughn Reeves RN [facility] [address] [place] [address] Registered Nurse Transplant Center 04/13/19 Ricki Dc MD [address] [place] [address] [place] [address] Turkey Cleaner Nephrology 01/11/20 Vicente Vargas MD [address] [place] [address] Cardiology 04/05/21 Roxie Palmer, NIEVES [address] [place] [address] Crane Service Technician 09/11/21 Lace Winder Relationship Specialty Start Date End Date Jame Hunt MD [address] [place] [address] PCP - General Internal Medicine 08/15/16 Kim La, Formerly [facility] [address] [place] [address] Pharmacist Pharmacy 07/17/18 Vaughn Reeves RN [facility] [address] [place] [address] Registered Nurse Transplant Center 04/13/19 Ricki Dc MD [address] [place] [address] [place] [address] Turkey Cleaner Nephrology 01/11/20 Vicente Vargas MD [address] [place] [address] Cardiology 04/05/21 Roxie Palmer RN [address] [place] [address] Crane Service Technician 09/11/21 Lace Winder Relationship Specialty Start Date End Date Jame Hunt MD [address] [place] [address] PCP - General Internal Medicine 08/15/16 Kim La, Formerly [facility] [address] [place] [address] Pharmacist Pharmacy 07/17/18 Vaughn Reeves RN [facility] [address] [place] [address] Registered Nurse Transplant Center 04/13/19 Ricki Dc MD [address] [place] [address] [place] [address] Turkey Cleaner Nephrology 01/11/20 Vicente Vargas MD [address] [place] [address] Cardiology 04/05/21 Roxie Palmer RN [address] [place], [place] 0233231 Crane Service Technician 09/11/21 Lace Winder Relationship Specialty Start Date End Date Jame Hunt MD [address] [place] [address] PCP - General Internal Medicine 08/15/16 Abhinav, Kim, Former[facility] [address] [place] [address] Pharmacist Pharmacy 07/17/18 Vaughn Reeves RN [facility] [address] [place] [address] Registered Nurse Transplant Center 04/13/19 Ricki Dc MD [address] [place] [address] [place] [address] Turkey Cleaner Nephrology 01/11/20 Vicente Vargas MD [address] [place] [address] Cardiology 04/05/21 Roxie Palmer RN [address] [place], [place] 7[address] Crane Service Technician 09/11/21 Lace Winder Relationship Specialty Start Date End Date Jame Hunt MD [address] [place] [address] PCP - General Internal Medicine 08/15/16 [place], Kim, Formerly [facility] [address] [place] [address] Pharmacist Pharmacy 07/17/18 Vaughn Reeves RN [facility] [address] [place] [address] Registered Nurse Transplant Center 04/13/19 Ricki Dc MD [address] [place] [address] [place] [address] Turkey Cleaner Nephrology 01/11/20 Vicente Vargas MD [address] [place] [address] Cardiology 04/05/21 Roxie Palmer RN [address] [place], [place] 210[address]31 Crane Service Technician 09/11/21 Lace Winder Relationship Specialty Start Date End Date Jame Hunt MD [address] [place] [address] PCP - General Internal Medicine 08/15/16 Kim La, Former[facility] [address] [place] [address] Pharmacist Pharmacy 07/17/18 Vaughn Reeves RN [facility] [address] [place] [address] Registered Nurse Transplant Center 04/13/19 Ricki Dc MD [address] [place] [address] Turkey Cleaner Nephrology 01/11/20 Vicente Vargas MD [address] [place] [address] Cardiology 04/05/21 Roxie Palmer RN [address] [place], [place] 6263631 Crane Service Technician 09/11/21 Lace Winder Relationship Specialty Start Date End Date Jame Hunt MD [address] [place] [address] PCP - General Internal Medicine 08/15/16 Kim La, Former[facility] [address] [place] [address] Pharmacist Pharmacy 07/17/18 Vaughn Reeves RN [facility] [address] [place] [address] Registered Nurse Transplant Center 04/13/19 Ricki Dc MD [address] [place] [place] [address] Turkey Cleaner Nephrology 01/11/20 Vicente Vargas MD [address] [place] [address] Cardiology 04/05/21 Roxie Palmer RN [address] [place], [place] 7424931 Crane Service Technician 09/11/21 Lace Winder Relationship Specialty Start Date End Date Jame Hunt MD [address] [place] [address] PCP - General Internal Medicine 08/15/16 Kim La, Former[facility] [address] [place] [address] Pharmacist Pharmacy 07/17/18 Vaughn Reeves, NIEVES [facility] [address] [place] [address] Registered Nurse Transplant Center 04/13/19 Ricki Dc MD [address] [place] [place] [address] Turkey Cleaner Nephrology 01/11/20 Vicente Vargas MD [address] [place] [address] Cardiology 04/05/21 Roxie Palmer RN [address] [place], [place] 405[address]31 Crane Service Technician 09/11/21 Lace Winder Relationship Specialty Start Date End Date Jaem Hunt MD [address] [place] [address] PCP - General Internal Medicine 08/15/16 Kim La, Former[facility] [address] [place] [address] Pharmacist Pharmacy 07/17/18 Vaughn Reeves RN [facility] [address] [place] [address] Registered Nurse Transplant Center 04/13/19 Ricki Dc MD [address] [place] [place] [address] Turkey Cleaner Nephrology 01/11/20 Vicente Vargas MD [address] [place] [address] Cardiology 04/05/21 Roxie Palmer RN [address] [place], [place] 8188231 Crane Service Technician 09/11/21 Lace Winder Relationship Specialty Start Date End Date Jame Hunt MD [address] [facility] [place] [address] PCP - General Internal Medicine 08/15/16 Kim La, Formerly [facility] [address] [place] [address] Pharmacist Pharmacy 07/17/18 Vaughn Reeves, NIEVES [facility] [address] [place] [address] Registered Nurse Transplant Center 04/13/19 Ricki cD MD [address] [place] [address] [place] [address] Turkey Cleaner Nephrology 01/11/20 Vicente Vargas MD [address] [place] [address] Cardiology 04/05/21 Roxie Palmer, NIEVES [address] [place], [place] 5345831 Crane Service Technician 09/11/21 Lace Winder Relationship Specialty Start Date End Date Jame Hunt MD [address] [facility] [place] [address] PCP - General Internal Medicine 08/15/16 Kim La, Former[facility] [address] [place] [address] Pharmacist Pharmacy 07/17/18 Vaughn Reeves, NIEVES [facility] [address] [place] [address] Registered Nurse Transplant Center 04/13/19 Ricki Dc MD [address] [place] [address] [place] [address] Turkey Cleaner Nephrology 01/11/20 Vicente Vargas MD [address] [place] [address] Cardiology 04/05/21 Roxie Palmer RN [address] [place], [place] 9422631 Crane Service Technician 09/11/21 Lace Winder Relationship Specialty Start Date End Date Jame Hunt MD [address] [facility] [place], [place] [address] PCP - General Internal Medicine 08/15/16 Kim La, Formerly [facility] [address] [place] [address] Pharmacist Pharmacy 07/17/18 Vaughn Reeves, NIEVES [facility] [address] [place] [address] Registered Nurse Transplant Center 04/13/19 Ricki Dc MD [address] [place] [address] [place] [address] Turkey Cleaner Nephrology 01/11/20 Vicente Vargas MD [address] [place] [address] Cardiology 04/05/21 Roxie Palmer, NIEVES [address] [place], [place] [id number] Crane Service Technician 09/11/21 Lace Winder Relationship Specialty Start Date End Date Jame Hunt MD [address] [place] [address] PCP - General Internal Medicine 08/15/16 Kim La, Formerly [facility] [address] [place] [address] Pharmacist Pharmacy 07/17/18 Vaughn Reeves RN [facility] [address] [place] [address] Registered Nurse Transplant Center 04/13/19 Ricki Dc MD [address] [place] [address] [place] [address] Turkey Cleaner Nephrology 01/11/20 Vicente Vargas MD [address] [place] [address] Cardiology 04/05/21 Roxie Palmer, NIEVES [address] [place], [place] [id number] Crane Service Technician 09/11/21 Lace Winder Relationship Specialty Start Date End Date Jame Hunt MD [address] [place] [address] PCP - General Internal Medicine 08/15/16 New HopeKim harris, Formerly [facility] [address] [place] [address] Pharmacist Pharmacy 07/17/18 Vaughn Reeves, NIEVES [facility] [address] [place] [address] Registered Nurse Transplant Center 04/13/19 Ricki Dc MD [address] [place] [address] [place] [address] Turkey Cleaner Nephrology 01/11/20 Vicente Vargas MD [address] [place] [address] Cardiology 04/05/21 Roxie Palmer, NIEVES [address] [place], [place] [id number] Crane Service Technician 09/11/21 Lace Winder Relationship Specialty Start Date End Date Jame Hunt MD [address] [place] [address] PCP - General Internal Medicine 08/15/16 Kim La, Formerly [facility] [address] [place] [address] Pharmacist Pharmacy 07/17/18 Vaughn Reeves, NIEVES [facility] [address] [place] [address] Registered Nurse Transplant Center 04/13/19 Ricki Dc MD [address] [place] [address] [place] [address] Turkey Cleaner Nephrology 01/11/20 Vicente Vargas MD [address] [place] [address] Cardiology 04/05/21 Roxie Palmer, NIEVES [address] [place], [place] [id number] Crane Service Technician 09/11/21 Lace Winder Relationship Specialty Start Date End Date Jame Hunt MD [address] [place] [address] PCP - General Internal Medicine 08/15/16 New HopeKim harris, Formerly [facility] [address] [place] [address] Pharmacist Pharmacy 07/17/18 Vaughn Reeves, NIEVES [facility] [address] [place] [address] Registered Nurse Transplant Center 04/13/19 Ricki Dc MD [address] [place] [address] [place] [address] Turkey Cleaner Nephrology 01/11/20 Vicente Vargas MD [address] [place] [address] Cardiology 04/05/21 Roxie Palmer, NIEVES [address] [place], [place] [id number] Crane Service Technician 09/11/21 Lace Winder Relationship Specialty Start Date End Date Jame Hunt MD [address] [place] [address] PCP - General Internal Medicine 08/15/16 AbhinavKim harris, Formerly [facility] [address] [place] [address] Pharmacist Pharmacy 07/17/18 Vaughn Reeves, NIEVES [facility] [address] [place] [address] Registered Nurse Transplant Center 04/13/19 Ricki Dc MD [address] [place] [address] [place] [address] Turkey Cleaner Nephrology 01/11/20 Vicente Vargas MD [address] [place] [address] Cardiology 04/05/21 Roxie Palmer, NIEVES [address] [place], [place] [id number] Crane Service Technician 09/11/21 Lace Winder Relationship Specialty Start Date End Date Jame Hunt MD [address] [place] [address] PCP - General Internal Medicine 08/15/16 [facility] [address] [place] [address] Pharmacist Pharmacy 07/17/18 Vaughn Reeves, NIEVES [facility] [address] [place] [address] Registered Nurse Transplant Center 04/13/19 Ricki Dc MD [address] [place] [address] [place] [address] Turkey Cleaner Nephrology 01/11/20 Vicente Vargas MD [address] [place] [address] Cardiology 04/05/21 Roxie Palmer, NIEVES [address] [place], [place] [id number] Crane Service Technician 09/11/21 Lace Winder Relationship Specialty Start Date End Date Jame Hunt MD [address] [place] [address] PCP - General Internal Medicine 08/15/16 [facility] [address] [place] [address] Pharmacist Pharmacy 07/17/18 Vaughn Reeves, NIEVES [facility] [address] [place] [address] Registered Nurse Transplant Center 04/13/19 Ricki cD MD [address] [place] [address] [place] [address] Turkey Cleaner Nephrology 01/11/20 Vicente Vargas MD [address] [place] [address] Cardiology 04/05/21 Roxie Palmer, NIEVES [address] [place], [place] [id number] Crane Service Technician 09/11/21 Lace Winder Relationship Specialty Start Date End Date Jame Hunt MD [address] [place] [address] PCP - General Internal Medicine 08/15/16 [facility] [address] [place] [address] Pharmacist Pharmacy 07/17/18 Vaughn Reeves, NIEVES [facility] [address] [place] [address] Registered Nurse Transplant Center 04/13/19 Ricki Dc MD [address] [place] [address] Turkey Cleaner Nephrology 01/11/20 Vicente Vargas MD [address] [place] [address] Cardiology 04/05/21 Roxie aPlmer, NIEVES [address] [place], [place] [phone] Crane Service Technician 09/11/21 Lace Winder Relationship Specialty Start Date End Date Jame Hunt MD [address] [place] [address] PCP - General Internal Medicine 08/15/16 [facility] [address] [place] [address] Pharmacist Pharmacy 07/17/18 Vaughn Reeves RN [facility] [address] [place] [address] Registered Nurse Transplant Center 04/13/19 Ricki Dc MD [address] [address] Turkey Cleaner Nephrology 01/11/20 Vicente Vargas MD [address] [place] [address] Cardiology 04/05/21 Roxie Palmer, NIEVES [address] [place], [place] [phone] Crane Service Technician 09/11/21 Lace Winder Relationship Specialty Start Date End Date Jame Hunt MD [address] [place] [address] PCP - General Internal Medicine 08/15/16 [facility] [address] [place] [address] Pharmacist Pharmacy 07/17/18 Vaughn Reeves RN [facility] [address] [place] [address] Registered Nurse Transplant Center 04/13/19 Ricki Dc MD [address] [place] [address] Turkey Cleaner Nephrology 01/11/20 Vicente Vargas MD [address] [place] [address] Cardiology 04/05/21 Roxie Palmer, NIEVES [address] [place], [place] [id number] Crane Service Technician 09/11/21 Lace Winder Relationship Specialty Start Date End Date Jame Hunt MD [address] [place] [address] PCP - General Internal Medicine 08/15/[address] [address] Pharmacist Pharmacy 07/17/18 Vaughn Reeves RN [facility] [address] [place] [address] Registered Nurse Transplant Center 04/13/19 Ricki Dc MD [address] [address] Turkey Cleaner Nephrology 01/11/20 Vicente Vargas MD [address] [place] [address] Cardiology 04/05/21 Roxie Palmer RN [address] [place], [place] [id number] Crane Service Technician 09/11/21 Lace Winder Relationship Specialty Start Date End Date Jaem Hunt MD [address] [place] [address] PCP - General Internal Medicine 08/15/[address] [address] Pharmacist Pharmacy 07/17/18 Vaughn Reeves RN [facility] [address] [place] [address] Registered Nurse Transplant Center 04/13/19 Ricki Dc MD [address] [address] Turkey Cleaner Nephrology 01/11/20 Vicente Vargas MD [address] [place] [address] Cardiology 04/05/21 Roxie Palmer, NIEVES [address] [place], [place] [phone] Crane Service Technician 09/11/21 Lace Winder Relationship Specialty Start Date End Date Jame Hunt MD [address] [place] [address] PCP - General Internal Medicine 08/15/[address] Kim La[address] [address] Pharmacist Pharmacy 07/17/18 Vaughn Reeves RN [facility] [address] [place] [address] Registered Nurse Transplant Center 04/13/19 Ricki Dc MD [address] [address] Turkey Cleaner Nephrology 01/11/20 Vicente Vargas MD [address] [place] [address] Cardiology 04/05/21 Roxie Palmer RN [address] [place], [place] [id number] Crane Service Technician 09/11/21 Lace Winder Relationship Specialty Start Date End Date Jame Hunt MD [address] [place] [address] PCP - General Internal Medicine 08/15/16 Kim La[address] [address] Pharmacist Pharmacy 07/17/18 Vaughn Reeves RN [facility] [address] [place] [address] Registered Nurse Transplant Center 04/13/19 Ricki Dc MD [address] [address] Turkey Cleaner Nephrology 01/11/20 Vicente Vargas MD [address] [place] [address] Cardiology 04/05/21 Roxie Palmer, NIEVES [address] [place], [place] [phone] Crane Service Technician 09/11/21 Lace Winder Relationship Specialty Start Date End Date Jame Hunt MD [address] [place] [address] PCP - General Internal Medicine 08/15/16 Kim La[address] [address] Pharmacist Pharmacy 07/17/18 Vaughn Reeves RN [facility] [address] [place] [address] Registered Nurse Transplant Center 04/13/19 Ricki Dc MD [address] [address] Turkey Cleaner Nephrology 01/11/20 Vicente Vargas MD [address] [place] [address] Cardiology 04/05/21 Roxie Palmer RN [address] [place], [place] [id number] Crane Service Technician 09/11/21 Lace Winder Relationship Specialty Start Date End Date Jame Hunt MD [address] [place] [address] PCP - General Internal Medicine 08/15/16 [facility] [address] [place] [address] Pharmacist Pharmacy 07/17/18 Vaughn Reeves RN [facility] [address] [place] [address] Registered Nurse Transplant Center 04/13/19 Ricki Dc MD [address] [place] [address] Turkey Cleaner Nephrology 01/11/20 Vicente Vargas MD [address] [place] [address] Cardiology 04/05/21 Dasha Colvin, fur tannerCrane Service Technician 08/07/22 Lace Winder Relationship Specialty Start Date End Date Jame Hunt MD [address] [place] [address] PCP - General Internal Medicine 08/15/16 Kim La[address] [address] Pharmacist Pharmacy 07/17/18 Vaughn Reeves RN [facility] [address] [place] [address] Registered Nurse Transplant Center 04/13/19 Ricki Dc MD [address] [address] Turkey Cleaner Nephrology 01/11/20 Vicente Vargas MD [address] [place] [address] Cardiology 04/05/21 Dasha Colvin, fur tannerCrane Service Technician 08/07/22 Lace Winder Relationship Specialty Start Date End Date Jame Hunt MD [address] [place] [address] PCP - General Internal Medicine 08/15/16 Kim La[address] [address] Pharmacist Pharmacy 07/17/18 Vaughn Reeves RN [facility] [address] [place] [address] Registered Nurse Transplant Center 04/13/19 Ricki Dc MD [address] [place] [address] [place] [address] Turkey Cleaner Nephrology 01/11/20 Vicente Vargas MD [address] [place] [address] Cardiology 04/05/21 Dasha Colvin, fur tannerCrane Service Technician 08/07/22 Lace Winder Relationship Specialty Start Date End Date Jame Hunt MD [address] [place] [address] PCP - General Internal Medicine 08/15/16 Kim La[address] [address] Pharmacist Pharmacy 07/17/18 Vaughn Reeves RN [facility] [address] [place] [address] Registered Nurse Transplant Center 04/13/19 Ricki Dc MD [address] [address] Turkey Cleaner Nephrology 01/11/20 Vicente Vargas MD [address] [place] [address] Cardiology 04/05/21 Dasha Colvin, fur tannerCrane Service Technician 08/07/22 Lace Winder Relationship Specialty Start Date End Date Jame Hunt MD [address] [place] [address] PCP - General Internal Medicine 08/15/16 Kim La[address] [address] Pharmacist Pharmacy 07/17/18 Vaughn Reeves RN [facility] [address] [place] [address] Registered Nurse Transplant Center 04/13/19 Ricki Dc MD [address] [facility] [address] [place] [address] Turkey Cleaner Nephrology 01/11/20 Vicente Vargas MD [address] [place] [address] Cardiology 04/05/21 Sienna Miller, fur tannerCrane Service Technician 09/18/22 Lace Winder Relationship Specialty Start Date End Date Jame Hunt MD [address] [place] [address] PCP - General Internal Medicine 08/15/16 [facility] [address] [place] [address] Pharmacist Pharmacy 07/17/18 Vaughn Reeves RN [facility] [address] [place] [address] Registered Nurse Transplant Center 04/13/19 Ricki Dc MD [address] [address] Turkey Cleaner Nephrology 01/11/20 Vicente Vargas MD [address] [place] [address] Cardiology 04/05/21 Sienna Miller, fur tannerCrane Service Technician 09/18/22 Lace Winder Relationship Specialty Start Date End Date Jame Hunt MD [address] [place] [address] PCP - General Internal Medicine 08/15/16 [facility] [address] [place] [address] Pharmacist Pharmacy 07/17/18 Vaughn Reeves RN [facility] [address] [place] [address] Registered Nurse Transplant Center 04/13/19 Ricki Dc MD [address] [address] Turkey Cleaner Nephrology 01/11/20 Vicente Vargas MD [address] [place] [address] Cardiology 04/05/21 Sienna Miller, fur tannerCrane Service Technician 09/18/22 Lace Winder Relationship Specialty Start Date End Date Jame Hunt MD [address] [place] [address] PCP - General Internal Medicine 08/15/16 Kim La, Formerly [facility] [address] [place] [address] Pharmacist Pharmacy 07/17/18 Vaughn Reeves RN [facility] [address] [place] [address] Registered Nurse Transplant Center 04/13/19 Ricki Dc MD [address] [address] Turkey Cleaner Nephrology 01/11/20 Vicente Vargas MD [address] [place] [address] Cardiology 04/05/21 Sienna Miller fur tannerCrane Service Technician 09/18/22 Lace Winder Relationship Specialty Start Date End Date Jame Hunt MD [address] [place] [address] PCP - General Internal Medicine 08/15/16 New HopeKim [facility]arrisBarn[facility] [address] [place] [address] Pharmacist Pharmacy 07/17/18 Vaughn Reeves RN [facility] [address] [place] [address] Registered Nurse Transplant Center 04/13/19 Ricki Dc MD [address] [place] [address] Turkey Cleaner Nephrology 01/11/20 Vicente Vargas MD [address] [place] [address] Cardiology 04/05/21 Sienna Miller RN Crane Service Technician 09/18/22 Lace Winder Relationship Specialty Start Date End Date Jame Hunt MD [address] [place] [address] PCP - General Internal Medicine 08/15/16 Kim La, Formerly [facility] [address] [place] [address] Pharmacist Pharmacy 07/17/18 Vaughn Reeves RN [facility] [address] [place] [address] Registered Nurse Transplant Center 04/13/19 Ricki Dc MD [address] [place] [place] [address] Turkey Cleaner Nephrology 01/11/20 Vicente Vargas MD [address] [place] [address] Cardiology 04/05/21 Sienna Miller RN Crane Service Technician 09/18/22 Lace Winder Relationship Specialty Start Date End Date Jame Hunt MD [address] [place] [address] PCP - General Internal Medicine 08/15/16 New HopeKim, Formerly [facility] [address] [place] [address] Pharmacist Pharmacy 07/17/18 Vaughn Reeves RN [facility] [address] [place] [address] Registered Nurse Transplant Center 04/13/19 Ricki Dc MD [address] [place] [address] [place] [address] Turkey Cleaner Nephrology 01/11/20 Vicente Vargas MD [address] [place] [address] Cardiology 04/05/21 Sienna Miller RN Crane Service Technician 09/18/22 Lace Winder Relationship Specialty Start Date End Date Jame Hunt MD [address] [place] [address] PCP - General Internal Medicine 08/15/16 Kim La, Formerly [facility] [address] [place] [address] Pharmacist Pharmacy 07/17/18 Vaughn Reeves RN [facility] [address] [place] [address] Registered Nurse Transplant Center 04/13/19 Ricki Dc MD [address] [place] [address] [place] [address] Turkey Cleaner Nephrology 01/11/20 Vicente Vargas MD [address] [place] [address] (Fax) Cardiology 04/05/21 Sienna Miller, fur tannerCrane Service Technician 09/18/22 Lace Winder Relationship Specialty Start Date End Date Jame Hunt MD [address] [place] [address] PCP - General Internal Medicine 08/15/16 Kim La, Formerly [facility] [address] [place] [address] Pharmacist Pharmacy 07/17/18 Vaughn Reeves, NIEVES [facility] [address] [place] [address] Registered Nurse Transplant Center 04/13/19 Ricki Dc MD [address] [address] Turkey Cleaner Nephrology 01/11/20 Vicente Vargas MD [address] [place] [address] Cardiology 04/05/21 Sienna Miller RN Crane Service Technician 09/18/22 Lace Winder Relationship Specialty Start Date End Date Jame Hunt MD [address] [place] [address] PCP - General Internal Medicine 08/15/16 New HopeKim, Formerly [facility] [address] [place] [address] Pharmacist Pharmacy 07/17/18 Vaughn Reeves RN [facility] [address] [place] [address] Registered Nurse Transplant Center 04/13/19 Ricki Dc MD [address] [address] Turkey Cleaner Nephrology 01/11/20 Vicente Vargas MD [address] [place] [address] Cardiology 04/05/21 Sienna Miller fur tannerCrane Service Technician 09/18/22 Lace Winder Relationship Specialty Start Date End Date Jame Hunt MD [address] [place] [address] PCP - General Internal Medicine 08/15/[address] [address] Pharmacist Pharmacy 07/17/18 Vaughn Reeves RN [facility] [address] [place] [address] Registered Nurse Transplant Center 04/13/19 Ricki Dc MD [address] [address] Turkey Cleaner Nephrology 01/11/20 Vicente Vargas MD [address] [place] [address] Cardiology 04/05/21 Sienna Miller fur tannerCrane Service Technician 09/18/22 Lace Winder Relationship Specialty Start Date End Date Jame Hunt MD [address] [place] [address] PCP - General Internal Medicine 08/15/16 [facility] [address] [place] [address] Pharmacist Pharmacy 07/17/18 Vaughn Reeves RN [facility] [address] [place] [address] Registered Nurse Transplant Center 04/13/19 Ricki Dc MD [address] [address] Turkey Cleaner Nephrology 01/11/20 Vicente Vargas MD [address] [place] [address] Cardiology 04/05/21 Sienna Miller, fur tannerCrane Service Technician 09/18/22 Lace Winder Relationship Specialty Start Date End Date Jame Hunt MD [address] [place] [address] PCP - General Internal Medicine 08/15/16 Kim La [address] [address] Pharmacist Pharmacy 07/17/18 Vaughn Reeves RN [facility] [address] [place] [address] Registered Nurse Transplant Center 04/13/19 Ricki Dc MD [address] [address] Turkey Cleaner Nephrology 01/11/20 Vicente Vargas MD [address] [place] [address] Cardiology 04/05/21 Sienna Miller, fur tannerCrane Service Technician 09/18/22 Lace Winder Relationship Specialty Start Date End Date Jame Hunt MD [address] [place] [address] PCP - General Internal Medicine 08/15/16 Kim La [facility] [address] [place] [address] Pharmacist Pharmacy 07/17/18 Vaughn Reeves RN [facility] [address] [place] [address] Registered Nurse Transplant Center 04/13/19 Ricki Dc MD [address] [address] Turkey Cleaner Nephrology 01/11/20 Vicente Vargas MD [address] [place] [address] Cardiology 04/05/21 Sienna Miller, fur tannerCrane Service Technician 09/18/22 Lace Winder Relationship Specialty Start Date End Date Jame Hunt MD [address] [place] [address] PCP - General Internal Medicine 08/15/16 Kim La, Formerly [facility] [address] [place] [address] Pharmacist Pharmacy 07/17/18 Vaughn Reeves RN [facility] [address] [place] [address] Registered Nurse Transplant Center 04/13/19 Ricki Dc MD [address] [address] Turkey Cleaner Nephrology 01/11/20 Vicente Vargas MD [address] [place] [address] Cardiology 04/05/21 Sienna Miller, fur tannerCrane Service Technician 09/18/22 Lace Winder Relationship Specialty Start Date End Date Jame Hunt MD [address] [place] [address] PCP - General Internal Medicine 08/15/16 New HopeKim harris, Formerly [facility] [address] [place] [address] Pharmacist Pharmacy 07/17/18 Vaughn Reeves, NIEVES [facility] [address] [place] [address] Registered Nurse Transplant Center 04/13/19 Ricki Dc MD [address] [address] [place] [address] Turkey Cleaner Nephrology 01/11/20 Vicente Vargas MD [address] [place] [address] Cardiology 04/05/21 Roxie Palmer RN [address] [place] [address] Crane Service Technician 09/11/2108/06 Lace Winder Relationship Specialty Start Date End Date Jame Hunt MD [address] [place] [address] PCP - General Internal Medicine 08/15/16 [facility]Kim [facility] [address] [place] [address] Pharmacist Pharmacy 07/17/18 Vaughn Reeves RN [facility] [address] [place] [address] Registered Nurse Transplant Center 04/13/19 Ricki Dc MD [address] [place] [address] Turkey Cleaner Nephrology 01/11/20 Vicente Vargas MD [address] [place] [address] Cardiology 04/05/21 Sienna Miller, fur tannerCrane Service Technician 09/18/22 Lace Winder Relationship Specialty Start Date End Date Jame Hunt MD [address] [place] [address] PCP - General Internal Medicine 08/15/16 [facility] [address] [place] [address] Pharmacist Pharmacy 07/17/18 Vaughn Reeves, NIEVES [facility] [address] [place] [address] Registered Nurse Transplant Center 04/13/19 Ricki Dc MD [address] [address] Turkey Cleaner Nephrology 01/11/20 Vicente Vargas MD [address] [place] [address] Cardiology 04/05/21 Sienna Miller fur tannerCrane Service Technician 09/18/22 Lizeth Bey MD [address] [place] [address] Primary Staff Physician Cardiology 01/10/23 Lace Winder Relationship Specialty Start Date End Date Jame Hunt MD [address] [place], [place] [address] PCP - General Internal Medicine 08/15/16 Kim La, Formerly [facility] [address] [place] [address] Pharmacist Pharmacy 07/17/18 Vaughn Reeves RN [facility] [facility] [place] [address] [place] [address] Registered Nurse Transplant Center 04/13/19 Ricki Dc MD [address] [address] Turkey Cleaner Nephrology 01/11/20 Vicente Vargas MD [address] [place] [address] (Fax) Cardiology 04/05/21 Sienna Miller, fur tannerCrane Service Technician 09/18/22 Lizeth Bey MD [address] [place] [address] Primary Staff Physician Cardiology 01/10/23 Lace Winder Relationship Specialty Start Date End Date Jame Hunt MD [address] [place] [address] PCP - General Internal Medicine 08/15/16 Kim La, [facility] [address] [place] [address] Pharmacist Pharmacy 07/17/18 Vaughn Reeves, NIEVES [facility] [place] [address] [place] [address] Registered Nurse Transplant Center 04/13/19 Ricki Dc MD [address] [address] [place] [employer] Nephrology 01/11/20 Vicente Vargas MD [address] [place] [address] (Fax) Cardiology 04/05/21 Sienna Miller fur tannerCrane Service Technician 09/18/22 Lizeth Bey MD [address] [place] [address] Primary Staff Physician Cardiology 01/10/23 Lace Winder Relationship Specialty Start Date End Date Jame Hunt MD [address] [facility] [place] [address] PCP - General Internal Medicine 08/15/16 Kim La, [facility] [address] [place] [address] Pharmacist Pharmacy 07/17/18 Vaughn Reeves, NIEVES [facility] [place] [address] [place] [address] Registered Nurse Transplant Center 04/13/19 Ricki Dc MD [address] [address] [place] Cleaner Nephrology 01/11/20 Vicente Vargas MD [address] [place] [address] Cardiology 04/05/21 Sienna Miller RN Crane Service Technician 09/18/22 Lizeth Bey MD [address] [place] [address] Primary Staff Physician Cardiology 01/10/23 Lace Winder Relationship Specialty Start Date End Date Jame Hunt MD [address] [place] [address] PCP - General Internal Medicine 08/15/16 Kim La, [facility] [address] [place] [address] Pharmacist Pharmacy 07/17/18 Vaughn Reeves RN [facility] [place] [address] [place] [address] Registered Nurse Transplant Center 04/13/19 Ricki Dc MD [address] [facility] [address] [place] [address] [employer]er Nephrology 01/11/20 Vicente Vargas MD [address] [place] [address] (Fax) Cardiology 04/05/21 Sienna Miller, fur tannerCrane Service Technician 09/18/22 Lizeth Bey MD [address] [place], [place] [id number] Primary Staff Physician Cardiology 01/10/23 Lace Winder Relationship Specialty Start Date End Date Jame Hunt MD [address] [place] [address] PCP - General Internal Medicine 08/15/16 Kim La, [facility] [address] [place] [address] Pharmacist Pharmacy 07/17/18 Vaughn Reeves, RN [facility] [place] [address] [place] [address] Registered Nurse Transplant Center 04/13/19 Ricki Dc MD [address] [address] [place] [employer] Nephrology 01/11/20 Vicente Vargas MD [address] [place] [address] (Fax) Cardiology 04/05/21 Sienna Miller RN Crane Service Technician 09/18/22 Lizeth Bey MD [address] [place] [address] Primary Staff Physician Cardiology 01/10/23 Lace Winder Relationship Specialty Start Date End Date Jame Hunt MD [facility] [place], [place] [id number] PCP - General Internal Medicine 08/15/16 Kim La, [facility] [address] [place] [address] Pharmacist Pharmacy 07/17/18 Vaughn Reeves, NIEVES [facility] [place] [address] [place] [address] Registered Nurse Transplant Center 04/13/19 Ricki Dc MD [address] [address] [place] Cleaner Nephrology 01/11/20 Vicente Vargas MD [address] [place] [address] Cardiology 04/05/21 Sienna Miller, fur tannerCrane Service Technician 09/18/22 Lizeth Bey MD [address] [place], [place] [id number] Primary Staff Physician Cardiology 01/10/23 FOR RECORDS [...] BE BASED ON THE PRIMARY CLINICAL RECORDS. [employer] [facility]. provides no warranty or guarantee of the accuracy or completeness of information in this document.
--- NOTE | 2023-04-15 21:34 | RAD_ITS ---
STUDY: X-RAY CHEST REASON FOR EXAM: Female, 67 years old. dyspnea TECHNIQUE: Single AP portable view of the chest. COMPARISON: 03/24/2023. FINDINGS: The lungs are underexpanded with vascular crowding, cannot exclude mild vascular congestion. There is patchy opacity within the left lower lobe concerning for pneumonia. Focal opacity within the right infrahilar region may indicate confluence of markings versus infiltrate. There is no demonstrated pleural abnormality. There is borderline cardiomegaly. Normal mediastinum and alvina. Normal visualized pulmonary arteries. There is atherosclerotic calcification of the aortic arch with tortuosity. There are diffuse degenerative changes of the visualized thoracic spine. Normal visualized ribs, clavicles, and shoulders. There is no demonstrated abnormality of the visualized soft tissue structures of the upper abdomen. RAD/Chest 1 View (Portable) IMPRESSION: Possible mild vascular congestion with superimposed left lower lobe pneumonia. [place] of markings in the right lower lobe versus atelectasis versus infiltrate. Electronically Signed: Flora Solis MD at 22:18 EST ,
[2023-04-15 21:57] LABS: BNP,B-Type NATRIURETIC PEPTIDE 190.4 pg/mL (0-100)
[2023-04-15 22:00] LABS: ALB/GLOB Ratio 0.7 RATIO (0.9-2.4); AST(SGOT) 23 U/L (15-37); Alanine Aminotransfer ALT/SGPT 24 U/L (13-56); Albumin, Serum 2.6 g/dL (3.2-5.0); Alkaline Phosphatase 150 U/L (45-117); Anion Gap 9 (5-15); BUN 30 mg/dL (7-18); BUN/Creat Ratio 5.2 RATIO (10-20); Calcium,Total 8.9 mg/dL (8.5-10.1); Chloride 96 mmol/L (98-107); EST Glomerular Filtration Rate 8 mL/min (>60); Est Glom Filt Rate - Afr Amer 9 mL/min (>60); Globulin 3.7 g/dL (2.2-4.2); Glucose 162 mg/dL (74-106); Potassium 4.4 mmol/L (3.5-5.1); Protein, Total 6.3 g/dL (6.4-8.2); Sodium Level 133 mmol/L (136-145); Troponin-I HS 27 pg/mL (3.0-54.0)
[2023-04-15 22:04] LABS: Lactic Acid 3.4 mmol/L (0.4-1.9)
[2023-04-15 22:12] LABS: Absolute Lymphocyte Count 0.45 X10^3/uL (0.83-4.51); Absolute Neutrophil Count 4.6 X10^3/uL (2.0-7.7); Basophil# 0.01 X10^3/uL; Basophil% 0.2 % (0-1); Eosinophil# 0.03 X10^3/uL; Eosinophils% 0.6 % (0-5); Hemoglobin 9.4 g/dL (12.0-15.0); Lymphocyte # 0.45 X10^3/ul (0.83-4.51); Lymphocyte % 8.3 % (19-41); Mean Corp Hgb Conc 30.3 g/dL (32-36); Mean Corpuscular Hgb 28.4 pg (27.0-32.0); Mean Corpuscular Volume 93.7 fL (81-99); Mean Platelet Vol. 9.8 fl (6.2-12.0); Monocyte# 0.24 X10^3/uL; Monocyte% 4.4 % (0-10); NRBC Flagged by Analyzer 0 % (0-5); Neutrophil # 4.64 X10^3/uL (2.7-7.7); Neutrophil % 85.6 % (47-70); POSITIVE COUNT YES; POSITIVE DIFFERENTIAL YES; POSITIVE MORPHOLOGY YES; Platelet Count 76 K/mm3 (150-450); RBC Distribution Width CV 19.4 % (11.6-14.6); RBC Distribution Width SD 65.1 fl (35.1-43.9); Red Blood Count 3.31 M/mm3 (4.2-5.4); White Blood Count 5.4 K/mm3 (4.4-11.0)
[2023-04-15] MEDS: 0.9% Normal Saline (1000mL) 1,000 ML 15 ML IV (22:15)
[2023-04-15 22:16] LABS: Differential Indicated SCAN CRITERIA MET
[2023-04-15] MEDS: levoFLOXacin IV 750 MG/150 ML BAG 100 MG IV (22:19)
[2023-04-15 22:24] VITALS: BP 91/39; PULSE 100; RESP 20; TEMP 36.6; O2SAT 96
[2023-04-15 22:27] VITALS: BP 91/39; PULSE 100; RESP 20; TEMP 36.6; O2SAT 96
[2023-04-15 22:36] LABS: Differential Comment SCANNED
--- NOTE | 2023-04-15 22:39 | PCM.HP.STD ---
Documented by User: Dr. Jag Everett DO 04/16/23 06:41 [facility] - General General Date of Admission: 04/15/23 Date of Service: 04/15/23 Chief Complaint: Lethargy and shortness of breath. HPI Narrative CHRISTINA KUO, is a 67 F with a past medical history of essential hypertension, hyperlipidemia, hypothyroidism, morbid obesity; with BMI of 41.1 this admission, diabetes mellitus type 2; of unknown control, history of diabetic foot ulcer, end-stage renal disease; on dialysis ([id number]); on midodrine, history of Mora with cirrhosis; with subsequent liver transplant on Tacrolimus (2006), history of uterine and cervical cancer; status post radical hysterectomy, history of DVT, history of coronary artery disease; status post stent placement, history of chronic diastolic CHF; with preserved left ventricular ejection fraction, history of psoriasis, chronic anemia with thrombocytopenia with baseline platelet level of 80 noted last admission here on March 27, 2023 (62-112), history of Krueger's palsy, restless leg syndrome, depression, GERD, osteoarthritis and history of generalized weakness with ambulatory dysfunction and multiple falls who presents to [facility] ER complaining of lethargy and shortness of breath. Ms. Kuo is not a fully reliable historian at this time but she reports her symptoms began earlier today on April 15, 2023 with increasing shortness of breath and lethargy noted after dialysis. She was also noted to have a blood pressure of approximately 90 mmHg systolic with staff at her ECF worried about possible sepsis. According to the records she denies chest pain or abdominal pain but did admit to a mild cough that was nonproductive. In the ER she was noted to have testing positive for Influenza A with chest x-ray positive for left lower lobe infiltrate consistent with suspected superimposed bacterial/nosocomial pneumonia complicated by laboratory evidence of lactic acidosis of 3.4 mmol/L present on admission and a low blood pressure of 91/39 mmHg consistent with suspected Sepsis complicated by altered mental status due to septic encephalopathy with stable chronic thrombocytopenia of 76 present on admission and she was then admitted to the ICU for ongoing care for a stay that is expected to be greater than 48 hours. [facility] Medical History Anemia Anemia in chronic kidney disease Anxiety Back pain Blister Cancer Cardiology follow-up encounter Celiac disease Chronic kidney disease, stage 3 Chronic kidney failure Chronic renal failure, stage 5 Cirrhosis COPD (chronic obstructive pulmonary disease) Depression Diabetes Dialysis patient DVT (deep venous thrombosis) DVT (deep venous thrombosis) ESRD (end stage renal disease) Gastric reflux GERD (gastroesophageal reflux disease) History of echocardiogram (~01/22/20) History of edema History of irregular heartbeat History of renal dialysis History of renal disease History of stress test (~12/07/19) History of uterine cancer Hx of Krueger's palsy Hypertension Hypertension Hypothyroidism Infection involving suture with abscess Insulin dependent diabetes mellitus Irregular heart beat LIVER TRANSPLANT Multiple falls Non-smoker Osteoporosis Pancytopenia Sleep apnea Thyroid disease Uses wheelchair Walker as ambulation aid Wears dentures Wears glasses Home Medications ascorbic acid (vitamin C) 500 mg chewable tablet 1,000 mg PO DAILY supplement 02/20/15 [History Last Taken 09/09/19] cholecalciferol (vitamin D3) 25 mcg (1,000 unit) tablet 1,000 unit PO BID supplement 02/20/15 [History Last Taken 09/09/19] insulin glargine 100 unit/mL (3 mL) subcutaneous pen (Lantus Solostar U-100 Insulin) 30 unit subcut BID blood sugar 05/29/18 [History Last Taken 01/30/23] tacrolimus 1 mg capsule, immediate-release (Prograf) 0.5 mg PO BID REJECTION 09/10/19 [History Last Taken 04/27/21] vitamin B complex 1 tablet PO DAILY SUPPLEMENT 09/10/19 [History Last Taken 09/09/19] carvedilol 25 mg tablet 12.5 mg PO BID heart 02/25/20 [History Last Taken 01/30/23] ropinirole 1 mg tablet 1 mg PO DAILY restless legs 05/23/20 [History Last Taken 06/16/20] ropinirole 2 mg tablet,extended release 24 hr 2 mg PO QHS restless legs 06/10/20 [History Last Taken Unknown] sevelamer carbonate 800 mg tablet (Renvela) 1,600 mg PO TIDCM kidney disease 06/10/20 [History Last Taken Unknown] nitroglycerin 0.4 mg sublingual tablet 0.4 mg sublingual Q5M PRN Cardiac/Chest Pain #30 tabs 04/29/21 [Rx Last Taken Unknown] biotin 1 mg capsule 1 mg PO BID supplement 08/11/21 [History Last Taken Unknown] sertraline 50 mg tablet (Zoloft) 50 mg PO DAILY mood 08/11/21 [History Last Taken Unknown] albuterol sulfate 90 mcg/actuation aerosol inhaler 2 puff IH Q4H PRN PRN Sob &/Or Wheezing 30 days #8.6 grams 10/25/21 [Rx Last Taken Unknown] diphenoxylate-atropine 2.5 mg-0.025 mg tablet (Lomotil) 1 tab PO TID PRN diarrhea #90 tabs 10/27/21 [Rx Last Taken 12/30/22] apremilast 30 mg tablet (Otezla) 30 mg PO DAILY 09/08/22 [History Last Taken Unknown] gabapentin 100 mg capsule 200 mg PO QHS 12/31/22 [History Last Taken Unknown] levothyroxine 88 mcg tablet 88 mcg PO DAILY 12/31/22 [History Last Taken 01/30/23] midodrine 10 mg tablet 10 mg PO MOWEFR PRN SBP <95 12/31/22 [History Last Taken Unknown] sucralfate 1 gram tablet (Carafate) 1 g PO BID #30 tabs 12/31/22 [Rx Last Taken Unknown] trazodone 100 mg tablet 200 mg PO QHS 12/31/22 [History Last Taken Unknown] pantoprazole 40 mg tablet,delayed release 40 mg PO BID #60 tabs 01/08/23 [Rx Last Taken Unknown] aspirin 81 mg tablet,delayed release (Adult Aspirin Regimen) 81 mg PO DAILY 01/28/23 [History Last Taken 01/26/23] omega 4-qsb-qiz-fish oil 1,200 mg (144 mg-216 mg) capsule (Fish Oil) 1 cap PO DAILY SUPPLEMENT 01/28/23 [History Last Taken Unknown] bisacodyl 10 mg rectal suppository (Dulcolax (bisacodyl)) 10 mg [place] DAILY PRN constipation #30 ea 02/12/23 [Rx Last Taken Unknown] hydrocodone-acetaminophen 5-325mg 5mg-325mg 1 tab PO Q6H PRN PRN Pain 3 days #10 TABLETS 03/27/23 [Rx Last Taken Unknown] acetaminophen 325 mg capsule 650 mg PO Q4H PRN fever or pain 04/15/23 [History Last Taken Unknown] acetaminophen 650 mg rectal suppository 650 mg [place] Q4H PRN fever or pain 04/15/23 [History Last Taken Unknown] aluminum-magnesium hydroxide 225 mg-200 mg/5 mL oral suspension 30 ml PO Q4H PRN PRN GI distress 04/15/23 [History Last Taken Unknown] dextrose 40 % oral gel (Gluco Burst) 15 g PO Q15M PRN hypoglycemia 04/15/23 [History Last Taken Unknown] glucagon HCl 1 mg solution for injection (Glucagon (HCl) Emergency Kit) 1 mg IM Q20M PRN hypoglycemia 04/15/23 [History Last Taken Unknown] guaifenesin 100 mg/5 mL oral liquid 200 mg PO Q4H PRN congestion 04/15/23 [History Last Taken Unknown] insulin lispro 100 unit/mL subcutaneous pen (Humalog KwikPen (U-100) Insulin) 5 unit subcut TIDCM 04/15/23 [History Last Taken Unknown] magnesium hydroxide 400 mg/5 mL oral suspension (Milk of Magnesia) 30 ml PO DAILY PRN constipation 04/15/23 [History Last Taken Unknown] melatonin 10 mg tablet 10 mg PO QHS 04/15/23 [History Last Taken Unknown] midodrine 10 mg tablet 10 mg PO MOTUTHFR 04/15/23 [History Last Taken Unknown] sodium phosphates 19 gram-7 gram/118 mL enema (Enema) 118 ml [place] DAILY PRN constipation 04/15/23 [History Last Taken Unknown] torsemide 60 mg tablet 60 mg PO DAILY 04/15/23 [History Last Taken Unknown] Allergy/AdvReac Type Severity Reaction Status Date / Time amlodipine [From Norvasc] Allergy Severe Hives Verified 04/15/23 20:55 ampicillin sodium Allergy Severe Hives Verified 04/15/23 20:55 [From Unasyn] buspirone HCl [From BuSpar] Allergy Severe Hives Verified 04/15/23 20:55 cefadroxil [From Duricef] Allergy Severe Hives Verified 04/15/23 20:55 lisinopril Allergy Severe Swelling Verified 04/15/23 20:55 naproxen Allergy Severe Hives Verified 04/15/23 20:55 niacin Allergy Severe Hives Verified 04/15/23 20:55 [From Niaspan Extended-Release] sulbactam sodium Allergy Severe Hives Verified 04/15/23 20:55 [From Unasyn] Sulfa (Sulfonamide Allergy Severe Hives Verified 04/15/23 20:55 Antibiotics) cephalexin [From Keflex] Allergy Vomiting Verified 04/15/23 20:55 omeprazole AdvReac Severe Other Verified 04/15/23 20:55 losartan AdvReac Swelling Verified 04/15/23 20:55 Family History Mother Diabetes Anemia Father Hypertension LUNG/RESPIRATORY DISEASE Surgical History History of appendectomy History of cardiac catheterization History of cholecystectomy History of coronary artery stent placement History of coronary artery stent placement History of left knee surgery History of left salpingo-oophorectomy History of liver transplant History of radical hysterectomy History of ventral hernia repair S/P arteriovenous (AV) fistula creation (~06/16/20) Social History housing: apartment current occupational status: disabled Smoking Status: Never smoker substance use type: does not use ROS ROS Narrative Review of systems: Constitutional: Patient reports lethargy; but she denies chills, fever, sweats or weight loss Eyes: She denies blurry vision, change in vision or diplopia ENT: She denies rhinorrhea or sore throat Cardiovascular: Denies chest pain, orthopnea or racing heartbeat Respiratory: She admits to cough, dyspnea and dyspnea on exertion; she also denies orthopnea or sputum Gastrointestinal: She denies abdominal pain, diarrhea, nausea or vomiting Genitourinary: She denies dysuria, hematuria or urinary frequency Musculoskeletal: She denies arthralgias, back pain, myalgias or neck pain Integumentary: She denies abscess, Abrasions or rash Neurologic: She denies headache or weakness Psychiatric: She denies anxiety, depression or suicidal thoughts Endocrinology: She denies polydipsia, polyphagia or polyuria Hematologic/Lymphatic: Denies easy bleeding, easy bruising or lymphadenopathy Allergic: She denies mouth swelling, tongue swelling or urticaria 14 point review systems otherwise negative several positives noted above in HPI. Vital Signs Vital Signs Vital Signs: 04/15/23 20:56 04/15/23 22:24 04/15/23 22:27 Temperature 98.0 F 97.9 F 97.9 F Temperature Source Temporal Temporal Pulse Rate 112 H 100 100 Respiratory Rate 18 20 H 20 H Blood Pressure 123/86 H 91/39 L 91/39 L Blood Pressure Mean 98 56 56 Pulse Ox 98 96 96 Oxygen Delivery Method Room Air Nasal Cannula Oxygen Flow Rate (L/min) 4 Physical Exam Const alert and no apparent distress Constitutional Narrative: Patient is lethargic and confused but arouseable. General Appearance: cooperative Orientation / Consciousness: confused and lethargic HEENT normocephalic, head/scalp atraumatic, hearing grossly normal bilaterally and moist oral mucous membranes Eyes PERRL, EOMs intact bilaterally and conjunctivae normal Neck no lymphadenopathy and supple Resp Resp Narrative: Diminished breath sounds throughout with coarse breath sounds right greater than left. Cardio regular rate and regular rhythm GI normal to inspection, nondistended, normoactive bowel sounds, soft to palpation, non-tender and non-distended Extremity Extremity Narrative: 2+ bilateral lower extremity edema. Skin Skin Narrative: Patient has no evidence of rash at this time. Neuro CN's II-XII intact bilaterally, moves all extremities and no focal motor deficits Sensorium / Orientation: awake, alert, oriented to person and oriented to place Speech: speech normal Motor Exam: strength 5/5 throughout Psych affect normal Results Medical Records Data Attestation: I reviewed the patient's medical records Lab / Micro Data Attestation: I reviewed the patient's lab results. 04/16/23 05:45 04/16/23 05:45 Labs: Laboratory Results - last 24 hr 04/15/23 21:11: Lactic Acid 3.4 H*, Ammonia 22.0, B-Natriuretic Peptide 190.4 H 04/15/23 21:20: WBC 5.4, RBC 3.31 L, Hgb 9.4 L, Hct 31.0 L, MCV 93.7, MCH 28.4, MCHC 30.3 L, RDW Std Deviation 65.1 H, RDW Coeff of Tami 19.4 H, Plt Count 76 L, MPV 9.8, Immature Gran % (Auto) 0.900, Neut % (Auto) 85.6 H, Lymph % (Auto) 8.3 L, Gila % (Auto) 4.4, Eos % (Auto) 0.6, Baso % (Auto) 0.2, Absolute Neuts (auto) 4.6, Absolute Lymphs (auto) 0.45 L, Nucleated RBC % 0, Differential Comment SCANNED, Sodium 133 L, Potassium 4.4, Chloride 96 L, Carbon Dioxide 28.0, Anion Gap 9, BUN 30 H, Creatinine 5.80 H, Est GFR (MDRD) Af Amer 9 L, Est GFR (MDRD) Non-Af 8 L, BUN/Creatinine Ratio 5.2 L, Glucose 162 H, Calcium 8.9, Total Bilirubin 0.50, AST 23, ALT 24, Alkaline Phosphatase 150 H, Troponin I High Sens 27, Total Protein 6.3 L, Albumin 2.6 L, Globulin 3.7, Albumin/Globulin Ratio 0.7 L Micro: Microbiology 04/15/23 21:26 Mucosa - Nose SARS-CoV-2, Influenza & RSV (PCR) - Final Influenzae A Imaging Radiology Impression Chest X-Ray 04/15/23 21:34 IMPRESSION: Possible mild vascular congestion with superimposed left lower lobe pneumonia. [place] of markings in the right lower lobe versus atelectasis versus infiltrate. Electronically Signed: Flora Solis MD at 22:18 EST , Assessment & Plan Assessment/Plan (1) Sepsis with encephalopathy without septic shock: QUALIFIERS: Sepsis type: sepsis due to unspecified organism Qualified Code(s): A41.9 - Sepsis, unspecified organism; R65.20 - Severe sepsis without septic shock; G93.41 - Metabolic encephalopathy (2) Pneumonia: QUALIFIERS: Laterality: left Lung location: lower lobe of lung Pneumonia type: due to unspecified organism Qualified Code(s): J18.9 - Pneumonia, unspecified organism (3) Influenza A: (4) Lactic acidosis: PLAN: Plan 1. Sepsis with Septic encephalopathy evidenced by altered mental status and lethargy - Admit to ICU for treatment under the sepsis protocol. Expand antibiotic treatment to cover potential nosocomial pathogens and await culture and sensitivity data. Give Tylenol prn pain or fever. 2. Acute Influenza A with superimposed LLL bacterial/nosocomial Pneumonia with suspected Sepsis causing #1 - Continue Tamiflu and broad-spectrum antibiotics and await culture and sensitivity data. 3. Lactic Acidosis of 3.4 mmol/L present on admission arising from #1 & #2 - Serialize lactates to ensure improvement. 4. History of Mora with cirrhosis; with subsequent liver transplant on Tacrolimus (2006) compounding #1 - #3 - Noted. Resume Tacrolimus as previous to prevent potential rejection. 5. ESRD on HD; (M-W-F) adding to the pathology of #1 - #4 - Continue HD as previous. Finally, we will consult Dr. Strickland of the nephrology service to see this patient on-rounds in the AM for further recommendations with help appreciated in advance. 6. Chronic Thrombocytopenia of 72 present on admission - Noted. Check daily CBC to ensure ongoing stability. 7. Osteoarthritis and history of generalized weakness with ambulatory dysfunction and multiple falls exacerbated by #1- #6 - PT/OT and Case Management to consult and treat with help appreciated in advance. 8. Essential hypertension - Hold scheduled antihypertensives until infections outlined in #2 are neutralized. 9. Hyperlipidemia - Resume statin and check Lipid Profile. 10. Hypothyroidism - Continue Synthroid as previous and check TSH. 11. Morbid obesity; with BMI of 41.1 this admission - Weight loss will be recommended. 12. Diabetes mellitus type 2; of unknown control with history of diabetic foot ulcer - ADA diet. FSBS q. AC/HS plus SSI. Check HgbA1c to objectively assess quality of diabetic control. 13. History of uterine and cervical cancer; status post radical hysterectomy - Noted. 14. History of DVT - Noted. 15. History of coronary artery disease; status post stent placement - Stable. 16. History of chronic diastolic CHF; with preserved left ventricular ejection fraction - Noted. 17. History of psoriasis - Stable. 18. Chronic anemia with thrombocytopenia with baseline platelet level of 80 noted last admission here on March 27, 2023 (62-112) - Noted above. 19. History of Krueger's palsy - Stable. 20. Restless leg syndrome - Continue current therapy. 21. Depression - Stable. Resume current regimen. 22. GERD - Continue PPI. 23. DVT prophylaxis - SCD's only with thrombocytopenia present on admission relatively contraindicating treatment with heparin or heparinoids. Total time: Approximately 85 minutes. Update: Patient was rechecked approximately 4 hours after admission and her lactate improved from 3.4 millimoles per liter present on admission down to 2.8 mmol/L now. Her blood pressure responded nicely to 2.7 L fluid bolus with no need to start pressors. Her midodrine was continued as previous. Yarn Sizer was contacted to make sure that fluid boluses were acceptable for this dialysis patient. ENVIRONMENTAL PROTECTION OFFICER was updated with plan. Sepsis Attestation Sepsis Alert: Yes Sepsis Attestation: Sepsis Ruled Out Date exam was performed: 04/15/23 Time exam was performed: 23:00 Possible Source of Sepsis: Pulmonary Sepsis Organ Dysfunction Criteria Present: SBP decrease of more than 40 mmHg, Creatinine > 2.0 mg/dL, Platelets <100,000 / uL, Lactic Acid > 2 mmol/L and New/Unexplained change in mental status Fluid Resuscitation Fluid resuscitation indicated?: Yes Fluid Resuscitation ordered: Lesser volume fluid bolus ordered Amount of fluid ordered: 2 Reason for lesser fluid bolus:: Concern for fluid overload, Renal Failure and Other Sepsis Note Date exam was performed: 04/16/23 Time exam was performed: 03:00 Sepsis Attestation: Sepsis re-evaluation was performed Response to fluids: Fluid responsive hypotension Charges/Coding Visit Charges Inpatient E&M: 04182 Init Hosp L3 Documented by User: Gerard Ordoñez 04/16/23 00:14 HPI - General General Date of Admission: 04/15/23 [facility] Medical History Anemia Anemia in chronic kidney disease Anxiety Back pain Blister Cancer Cardiology follow-up encounter Celiac disease Chronic kidney disease, stage 3 Chronic kidney failure Chronic renal failure, stage 5 Cirrhosis COPD (chronic obstructive pulmonary disease) Depression Diabetes Dialysis patient DVT (deep venous thrombosis) DVT (deep venous thrombosis) ESRD (end stage renal disease) Gastric reflux GERD (gastroesophageal reflux disease) History of echocardiogram (~01/22/20) History of edema History of irregular heartbeat History of renal dialysis History of renal disease History of stress test (~12/07/19) History of uterine cancer Hx of Krueger's palsy Hypertension Hypertension Hypothyroidism Infection involving suture with abscess Insulin dependent diabetes mellitus Irregular heart beat LIVER TRANSPLANT Multiple falls Non-smoker Osteoporosis Pancytopenia Sleep apnea Thyroid disease Uses wheelchair Walker as ambulation aid Wears dentures Wears glasses Home Medications ascorbic acid (vitamin C) 500 mg chewable tablet 1,000 mg PO DAILY supplement 02/20/15 [History Last Taken 09/09/19] cholecalciferol (vitamin D3) 25 mcg (1,000 unit) tablet 1,000 unit PO BID supplement 02/20/15 [History Last Taken 09/09/19] insulin glargine 100 unit/mL (3 mL) subcutaneous pen (Lantus Solostar U-100 Insulin) 30 unit subcut BID blood sugar 05/29/18 [History Last Taken 01/30/23] tacrolimus 1 mg capsule, immediate-release (Prograf) 0.5 mg PO BID REJECTION 09/10/19 [History Last Taken 04/27/21] vitamin B complex 1 tablet PO DAILY SUPPLEMENT 09/10/19 [History Last Taken 09/09/19] carvedilol 25 mg tablet 12.5 mg PO BID heart 02/25/20 [History Last Taken 01/30/23] ropinirole 1 mg tablet 1 mg PO DAILY restless legs 05/23/20 [History Last Taken 06/16/20] ropinirole 2 mg tablet,extended release 24 hr 2 mg PO QHS restless legs 06/10/20 [History Last Taken Unknown] sevelamer carbonate 800 mg tablet (Renvela) 1,600 mg PO TIDCM kidney disease 06/10/20 [History Last Taken Unknown] nitroglycerin 0.4 mg sublingual tablet 0.4 mg sublingual Q5M PRN Cardiac/Chest Pain #30 tabs 04/29/21 [Rx Last Taken Unknown] biotin 1 mg capsule 1 mg PO BID supplement 08/11/21 [History Last Taken Unknown] sertraline 50 mg tablet (Zoloft) 50 mg PO DAILY mood 08/11/21 [History Last Taken Unknown] albuterol sulfate 90 mcg/actuation aerosol inhaler 2 puff IH Q4H PRN PRN Sob &/Or Wheezing 30 days #8.6 grams 10/25/21 [Rx Last Taken Unknown] diphenoxylate-atropine 2.5 mg-0.025 mg tablet (Lomotil) 1 tab PO TID PRN diarrhea #90 tabs 10/27/21 [Rx Last Taken 12/30/22] apremilast 30 mg tablet (Otezla) 30 mg PO DAILY 09/08/22 [History Last Taken Unknown] gabapentin 100 mg capsule 200 mg PO QHS 12/31/22 [History Last Taken Unknown] levothyroxine 88 mcg tablet 88 mcg PO DAILY 12/31/22 [History Last Taken 01/30/23] midodrine 10 mg tablet 10 mg PO MOWEFR PRN SBP <95 12/31/22 [History Last Taken Unknown] sucralfate 1 gram tablet (Carafate) 1 g PO BID #30 tabs 12/31/22 [Rx Last Taken Unknown] trazodone 100 mg tablet 200 mg PO QHS 12/31/22 [History Last Taken Unknown] pantoprazole 40 mg tablet,delayed release 40 mg PO BID #60 tabs 01/08/23 [Rx Last Taken Unknown] aspirin 81 mg tablet,delayed release (Adult Aspirin Regimen) 81 mg PO DAILY 01/28/23 [History Last Taken 01/26/23] omega 4-fya-uob-fish oil 1,200 mg (144 mg-216 mg) capsule (Fish Oil) 1 cap PO DAILY SUPPLEMENT 01/28/23 [History Last Taken Unknown] bisacodyl 10 mg rectal suppository (Dulcolax (bisacodyl)) 10 mg [place] DAILY PRN constipation #30 ea 02/12/23 [Rx Last Taken Unknown] hydrocodone-acetaminophen 5-325mg 5mg-325mg 1 tab PO Q6H PRN PRN Pain 3 days #10 TABLETS 03/27/23 [Rx Last Taken Unknown] acetaminophen 325 mg capsule 650 mg PO Q4H PRN fever or pain 04/15/23 [History Last Taken Unknown] acetaminophen 650 mg rectal suppository 650 mg [place] Q4H PRN fever or pain 04/15/23 [History Last Taken Unknown] aluminum-magnesium hydroxide 225 mg-200 mg/5 mL oral suspension 30 ml PO Q4H PRN PRN GI distress 04/15/23 [History Last Taken Unknown] dextrose 40 % oral gel (Gluco Burst) 15 g PO Q15M PRN hypoglycemia 04/15/23 [History Last Taken Unknown] glucagon HCl 1 mg solution for injection (Glucagon (HCl) Emergency Kit) 1 mg IM Q20M PRN hypoglycemia 04/15/23 [History Last Taken Unknown] guaifenesin 100 mg/5 mL oral liquid 200 mg PO Q4H PRN congestion 04/15/23 [History Last Taken Unknown] insulin lispro 100 unit/mL subcutaneous pen (Humalog KwikPen (U-100) Insulin) 5 unit subcut TIDCM 04/15/23 [History Last Taken Unknown] magnesium hydroxide 400 mg/5 mL oral suspension (Milk of Magnesia) 30 ml PO DAILY PRN constipation 04/15/23 [History Last Taken Unknown] melatonin 10 mg tablet 10 mg PO QHS 04/15/23 [History Last Taken Unknown] midodrine 10 mg tablet 10 mg PO MOTUTHFR 04/15/23 [History Last Taken Unknown] sodium phosphates 19 gram-7 gram/118 mL enema (Enema) 118 ml [place] DAILY PRN constipation 04/15/23 [History Last Taken Unknown] torsemide 60 mg tablet 60 mg PO DAILY 04/15/23 [History Last Taken Unknown] Allergy/AdvReac Type Severity Reaction Status Date / Time amlodipine [From Norvasc] Allergy Severe Hives Verified 04/15/23 20:55 ampicillin sodium Allergy Severe Hives Verified 04/15/23 20:55 [From Unasyn] buspirone HCl [From BuSpar] Allergy Severe Hives Verified 04/15/23 20:55 cefadroxil [From Duricef] Allergy Severe Hives Verified 04/15/23 20:55 lisinopril Allergy Severe Swelling Verified 04/15/23 20:55 naproxen Allergy Severe Hives Verified 04/15/23 20:55 niacin Allergy Severe Hives Verified 04/15/23 20:55 [From Niaspan Extended-Release] sulbactam sodium Allergy Severe Hives Verified 04/15/23 20:55 [From Unasyn] Sulfa (Sulfonamide Allergy Severe Hives Verified 04/15/23 20:55 Antibiotics) cephalexin [From Keflex] Allergy Vomiting Verified 04/15/23 20:55 omeprazole AdvReac Severe Other Verified 04/15/23 20:55 losartan AdvReac Swelling Verified 04/15/23 20:55 Family History Mother Diabetes Anemia Father Hypertension LUNG/RESPIRATORY DISEASE Surgical History History of appendectomy History of cardiac catheterization History of cholecystectomy History of coronary artery stent placement History of coronary artery stent placement History of left knee surgery History of left salpingo-oophorectomy History of liver transplant History of radical hysterectomy History of ventral hernia repair S/P arteriovenous (AV) fistula creation (~06/16/20) Social History housing: apartment current occupational status: disabled Smoking Status: Never smoker substance use type: does not use Results Lab / Micro Data 04/16/23 05:45 04/16/23 05:45 Assessment & Plan Assessment/Plan (1) Sepsis with encephalopathy without septic shock: QUALIFIERS: Sepsis type: sepsis due to unspecified organism Qualified Code(s): A41.9 - Sepsis, unspecified organism; R65.20 - Severe sepsis without septic shock; G93.41 - Metabolic encephalopathy (2) Pneumonia: QUALIFIERS: Laterality: left Lung location: lower lobe of lung Pneumonia type: due to unspecified organism Qualified Code(s): J18.9 - Pneumonia, unspecified organism (3) Influenza A: (4) Lactic acidosis:
[2023-04-15] MEDS: 0.9% Normal Saline (1000mL) 1,000 ML 999 ML IV (22:47)
--- NOTE | 2023-04-15 22:54 | ED.RN ---
called ,updated on condition.
[2023-04-15] MEDS: Oseltamivir Phosphate 75 MG Capsule PO (22:59)
--- NOTE | 2023-04-15 23:14 | HP.PCM.HOS_ITS ---
[facility] - General General Date of Admission: 04/15/23 Date of Service: 04/15/23 Chief Complaint: Lethargy and shortness of breath. HPI Narrative CHRISTINA KUO, is a 67 F who presents [facility] Medical History Anemia Anemia in chronic kidney disease Anxiety Back pain Blister Cancer Cardiology follow-up encounter Celiac disease Chronic kidney disease, stage 3 Chronic kidney failure Chronic renal failure, stage 5 Cirrhosis COPD (chronic obstructive pulmonary disease) Depression Diabetes Dialysis patient DVT (deep venous thrombosis) DVT (deep venous thrombosis) ESRD (end stage renal disease) Gastric reflux GERD (gastroesophageal reflux disease) History of echocardiogram (~01/22/20) History of edema History of irregular heartbeat History of renal dialysis History of renal disease History of stress test (~12/07/19) History of uterine cancer Hx of Krueger's palsy Hypertension Hypertension Hypothyroidism Infection involving suture with abscess Insulin dependent diabetes mellitus Irregular heart beat [employer] Multiple falls Non-smoker Osteoporosis Pancytopenia Sleep apnea Thyroid disease Uses wheelchair Walker as ambulation aid Wears dentures Wears glasses Home Medications ascorbic acid (vitamin C) 500 mg chewable tablet 1,000 mg PO DAILY supplement 02/20/15 [History Last Taken 09/09/19] cholecalciferol (vitamin D3) 25 mcg (1,000 unit) tablet 1,000 unit PO BID supplement 02/20/15 [History Last Taken 09/09/19] insulin glargine 100 unit/mL (3 mL) subcutaneous pen (Lantus Solostar U-100 Insulin) 30 unit subcut BID blood sugar 05/29/18 [History Last Taken 01/30/23] tacrolimus 1 mg capsule, immediate-release (Prograf) 0.5 mg PO BID REJECTION 09/10/19 [History Last Taken 04/27/21] vitamin B complex 1 tablet PO DAILY SUPPLEMENT 09/10/19 [History Last Taken 09/09/19] carvedilol 25 mg tablet 12.5 mg PO BID heart 02/25/20 [History Last Taken 01/30/23] ropinirole 1 mg tablet 1 mg PO DAILY restless legs 05/23/20 [History Last Taken 06/16/20] ropinirole 2 mg tablet,extended release 24 hr 2 mg PO QHS restless legs 06/10/20 [History Last Taken Unknown] sevelamer carbonate 800 mg tablet (Renvela) 1,600 mg PO TIDCM kidney disease 06/10/20 [History Last Taken Unknown] nitroglycerin 0.4 mg sublingual tablet 0.4 mg sublingual Q5M PRN Cardiac/Chest Pain #30 tabs 04/29/21 [Rx Last Taken Unknown] biotin 1 mg capsule 1 mg PO BID supplement 08/11/21 [History Last Taken Unknown] sertraline 50 mg tablet (Zoloft) 50 mg PO DAILY mood 08/11/21 [History Last Taken Unknown] albuterol sulfate 90 mcg/actuation aerosol inhaler 2 puff IH Q4H PRN PRN Sob &/Or Wheezing 30 days #8.6 grams 10/25/21 [Rx Last Taken Unknown] diphenoxylate-atropine 2.5 mg-0.025 mg tablet (Lomotil) 1 tab PO TID PRN diarrhea #90 tabs 10/27/21 [Rx Last Taken 12/30/22] apremilast 30 mg tablet (Otezla) 30 mg PO DAILY 09/08/22 [History Last Taken Unknown] gabapentin 100 mg capsule 200 mg PO QHS 12/31/22 [History Last Taken Unknown] levothyroxine 88 mcg tablet 88 mcg PO DAILY 12/31/22 [History Last Taken 1 04/01/22] midodrine 10 mg tablet 10 mg PO MOWEFR PRN SBP <95 12/31/22 [History Last Taken Unknown] sucralfate 1 gram tablet (Carafate) 1 g PO BID #30 tabs 12/31/22 [Rx Last Taken Unknown] trazodone 100 mg tablet 200 mg PO QHS 12/31/22 [History Last Taken Unknown] pantoprazole 40 mg tablet,delayed release 40 mg PO BID #60 tabs 01/08/23 [Rx Last Taken Unknown] aspirin 81 mg tablet,delayed release (Adult Aspirin Regimen) 81 mg PO DAILY 01/28/23 [History Last Taken 01/26/23] omega 0-mcl-lia-fish oil 1,200 mg (144 mg-216 mg) capsule (Fish Oil) 1 cap PO DAILY SUPPLEMENT 01/28/23 [History Last Taken Unknown] bisacodyl 10 mg rectal suppository (Dulcolax (bisacodyl)) 10 mg TN DAILY PRN constipation #30 ea 02/12/23 [Rx Last Taken Unknown] hydrocodone-acetaminophen 5-325mg 5mg-325mg 1 tab PO Q6H PRN PRN Pain 3 days #10 TABLETS 03/27/23 [Rx Last Taken Unknown] acetaminophen 325 mg capsule 650 mg PO Q4H PRN fever or pain 04/15/23 [History Last Taken Unknown] acetaminophen 650 mg rectal suppository 650 mg TN Q4H PRN fever or pain 04/15/23 [History Last Taken Unknown] aluminum-magnesium hydroxide 225 mg-200 mg/5 mL oral suspension 30 ml PO Q4H PRN PRN GI distress 04/15/23 [History Last Taken Unknown] dextrose 40 % oral gel (Gluco Burst) 15 g PO Q15M PRN hypoglycemia 04/15/23 [History Last Taken Unknown] glucagon HCl 1 mg solution for injection (Glucagon (HCl) Emergency Kit) 1 mg IM Q20M PRN hypoglycemia 04/15/23 [History Last Taken Unknown] guaifenesin 100 mg/5 mL oral liquid 200 mg PO Q4H PRN congestion 04/15/23 [History Last Taken Unknown] insulin lispro 100 unit/mL subcutaneous pen (Humalog KwikPen (U-100) Insulin) 5 unit subcut TIDCM 04/15/23 [History Last Taken Unknown] magnesium hydroxide 400 mg/5 mL oral suspension (Milk of Magnesia) 30 ml PO DAILY PRN constipation 04/15/23 [History Last Taken Unknown] melatonin 10 mg tablet 10 mg PO QHS 04/15/23 [History Last Taken Unknown] midodrine 10 mg tablet 10 mg PO MOTUTHFR 04/15/23 [History Last Taken Unknown] sodium phosphates 19 gram-7 gram/118 mL enema (Enema) 118 ml TN DAILY PRN constipation 04/15/23 [History Last Taken Unknown] torsemide 60 mg tablet 60 mg PO DAILY 04/15/23 [History Last Taken Unknown] Allergy/AdvReac Type Severity Reaction Status Date / Time amlodipine [From Norvasc] Allergy Severe Hives Verified 04/15/23 20:55 ampicillin sodium Allergy Severe Hives Verified 04/15/23 20:55 [From Unasyn] buspirone HCl [From BuSpar] Allergy Severe Hives Verified 04/15/23 20:55 cefadroxil [From Duricef] Allergy Severe Hives Verified 04/15/23 20:55 lisinopril Allergy Severe Swelling Verified 04/15/23 20:55 naproxen Allergy Severe Hives Verified 04/15/23 20:55 niacin Allergy Severe Hives Verified 04/15/23 20:55 [From Niaspan Extended-Release] sulbactam sodium Allergy Severe Hives Verified 04/15/23 20:55 [From Unasyn] Sulfa (Sulfonamide Allergy Severe Hives Verified 04/15/23 20:55 Antibiotics) cephalexin [From Keflex] Allergy Vomiting Verified 04/15/23 20:55 omeprazole AdvReac Severe Other Verified 04/15/23 20:55 losartan AdvReac Swelling Verified 04/15/23 20:55 Family History Mother Diabetes Anemia Father Hypertension LUNG/RESPIRATORY DISEASE Surgical History History of appendectomy History of cardiac catheterization History of cholecystectomy History of coronary artery stent placement History of coronary artery stent placement History of left knee surgery History of left salpingo-oophorectomy History of liver transplant History of radical hysterectomy History of ventral hernia repair S/P arteriovenous (AV) fistula creation (~06/16/20) Social History housing: apartment current occupational status: disabled Smoking Status: Never smoker substance use type: does not use Vital Signs Vital Signs Vital Signs: 04/15/23 20:56 04/15/23 22:24 04/15/23 22:27 Temperature 98.0 F 97.9 F 97.9 F Temperature Source Temporal Temporal Pulse Rate 112 H 100 100 Respiratory Rate 18 20 H 20 H Blood Pressure 123/86 H 91/39 L 91/39 L Blood Pressure Mean 98 56 56 Pulse Ox 98 96 96 Oxygen Delivery Method Room Air Nasal Cannula Oxygen Flow Rate (L/min) 4 Results Lab / Micro Data 04/15/23 21:20 04/15/23 21:20 Labs: Laboratory Results - last 24 hr 04/15/23 21:11: Lactic Acid 3.4 H*, Ammonia 22.0, B-Natriuretic Peptide 190.4 H 04/15/23 21:20: WBC 5.4, RBC 3.31 L, Hgb 9.4 L, Hct 31.0 L, MCV 93.7, MCH 28.4, MCHC 30.3 L, RDW Std Deviation 65.1 H, RDW Coeff of Tami 19.4 H, Plt Count 76 L, MPV 9.8, Immature Gran % (Auto) 0.900, Neut % (Auto) 85.6 H, Lymph % (Auto) 8.3 L, [place] % (Auto) 4.4, Eos % (Auto) 0.6, Baso % (Auto) 0.2, Absolute Neuts (auto) 4.6, Absolute Lymphs (auto) 0.45 L, Nucleated RBC % 0, Differential Comment SCANNED, Sodium 133 L, Potassium 4.4, Chloride 96 L, Carbon Dioxide 28.0, Anion Gap 9, BUN 30 H, Creatinine 5.80 H, Est GFR (MDRD) Af Amer 9 L, Est GFR (MDRD) Non-Af 8 L, BUN/Creatinine Ratio 5.2 L, Glucose 162 H, Calcium 8.9, Total Bili real 0.50, AST 23, ALT 24, Alkaline Phosphatase 150 H, Troponin I High Sens 27, Total Protein 6.3 L, Albumin 2.6 L, Globulin 3.7, Albumin/Globulin Ratio 0.7 L Micro: Microbiology 04/15/23 21:26 Mucosa - Nose SARS-CoV-2, Influenza & RSV (PCR) - Final Influenzae A Imaging Radiology Impression Chest X-Ray 04/15/23 21:34 IMPRESSION: Possible mild vascular congestion with superimposed left lower lobe pneumonia. [place] of markings in the right lower lobe versus atelectasis versus infiltrate. Electronically Signed: Flora Solis MD at 22:18 EST ,
[2023-04-15 23:15] VITALS: BMI 39.4
[2023-04-15 23:21] VITALS: BP 100/41; PULSE 95; RESP 21; TEMP 36.6; O2SAT 100
--- OUTSIDE RECORDS SUMMARY | 2023-04-15 23:22 | XMS RPT_ITS | CCD ---
Author Name Unknown Address [address] [place] [address] Organization [facility] Care Team Providers Care Radio Frequency Design Engineer Name Role Phone Geremias FOFANA, Jame Primary Care Provider Unavailab [facility], Kim Unavailable Vaughn Reeves RN Unavailable Unavailable Dao FOFANA, Jayaoumoukash Unavailable Alicia FOFANA, Vicente Armenta Unavailable Spencer RN, Roxie Unavailable Jame Hunt MD Primary Care Provider Unavailab [facility], Kim Unavailable Vaughn Reeves RN Unavailable [...] Referring Unavailable GANTA, JAME Primary Care Unavailable RUHTIE, ZIAD Referring Unavailable GANTA, JAME Primary Care [...] VICTORIA Referring Unavailable LIZETH BEY Attending Unavailable [facility] Primary Care Unavailable SILVA PLASENCIA Referring Unavailable GANTA, JAME Primary Care Unavailable GANTA, JAME Primary Care Unavailable GANTA, JAME Primary Care Unavailable OLDERSILVA Attending Unavailable [facility] Primary Care Unavailable Allergies Allergy Classification Reported Allergen(s) Allergy Type Date of Onset Reaction(s) Facility (20 sources) Ampicillin / Sulbactam; Translations: [AMPICILLIN-SULB ACTAM] Drug Allergy 8 [facility] (20 sources) busPIRone; Translations: [BUSPIRONE HCL] Drug Allergy 8 [facility] (20 sources) Cefadroxil; Translations: [CEFADROXIL] Drug Allergy 8 [facility] (20 sources) Cephalexin; Translations: [CEPHALEXIN] Drug Allergy 9 [facility] (20 sources) Clindamycin; Translations: [CLINDAMYCIN] Drug Allergy 9 Vomiting [facility] (20 sources) Lisinopril; Translations: [LISINOPRIL] Drug Allergy 5 [facility] (20 sources) Losartan; Translations: [LOSARTAN] Drug Allergy 8 [facility] Work Phone: (20 sources) Naproxen; Translations: [NAPROXEN] Drug Allergy 5 Other: See [facility] (20 sources) Niacin; Translations: [NIACIN] Drug Allergy 9 [facility] (20 sources) Sulfonamides (Antibiotic); Translations: [SULFA (SULFONAMIDE ANTIBIOTICS)] Drug Intolerance 5 [facility] (11 sources) amLODIPine; Translations: [AMLODIPINE] Drug Allergy 8 [facility] (11 sources) busPIRone; Translations: [BUSPIRONE] Drug Allergy 9 [facility] (11 sources) Doxylamine; Translations: [DOXYLAMINE SUCCINATE] Drug Allergy 3 [facility] (11 sources) Omeprazole; Translations: [OMEPRAZOLE] Drug Allergy 8 Other: See Comments [facility] (11 sources) Sulbactam; Translations: [SULBACTAM] Drug Allergy 9 Hives [facility] (11 sources) traMADol; Translations: [TRAMADOL] Drug Allergy 3 Vomiting [facility] Medications Current Medications Medication Drug [...] Coronary atherosclerosis; Translations: [Atherosclerotic heart disease of [place] coronary artery without angina pectoris] Onset: 12-13-2020 04-04-2021 Chronic Deficiency and other anemia (2 sources) Anemia in chronic kidney disease; Translations: [Anemia in stage 4 chronic kidney disease (HCC) ([facility])] Onset: 12-17-2016 Chronic Diabetes mellitus with complications (1 source) Type 2 diabetes mellitus with hyperosmolarity without nonketotic hyperglycemic-hyperos molar coma ([facility]); Translations: [Type 2 diabetes mellitus with hyperosmolarity 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, with long-term current use of insulin ([facility])] Onset: 02-28-2021 Chronic Diabetes mellitus without complication [...] Chronic Other aftercare (1 source) 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; Translations: [Medication management] Onset: [...] 2 05-23-2021 Episodic Other aftercare (1 source) 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; Translations: [Type 2 [...] 116 kg Lizeth Bey MD Work Phone: [facility] 01-10-2023 14:09-0500 Diastolic blood pressure 66 mm[Hg] Lizeth Bey MD Work Phone: [facility] 01-10-2023 14:09-0500 Heart rate 85 /min Lizeth Bey MD Work Phone: [facility] 01-10-2023 14:09-0500 SaO2% (BldA) [Mass fraction] 98 % Lizeth Bey MD Work Phone: [facility] 01-10-2023 14:09-0500 Systolic blood pressure 156 mm[Hg] Lizeth Bey MD Work Phone: [facility] 01-10-2023 09:23-0500 Body height 166.4 cm Amadeo Karlos FAMILY SERVICES COORDINATOR.MORTICIAN INVESTIGATOR Work Phone: [facility] 01-10-2023 09:23-0500 Body temperature 98.4 [degF] Amadeo Karlos FAMILY SERVICES COORDINATOR.MORTICIAN INVESTIGATOR Work Phone: [facility] 01-10-2023 09:23-0500 Body weight 116.03 kg Amadeo Karlos FAMILY SERVICES COORDINATOR.MORTICIAN INVESTIGATOR Work Phone: [facility] 01-10-2023 09:23-0500 Diastolic blood pressure 45 mm[Hg] Amadeo Karlos FAMILY SERVICES COORDINATOR.MORTICIAN INVESTIGATOR Work Phone: [facility] 01-10-2023 09:23-0500 Heart rate 78 /min Amadeo Karlos FAMILY SERVICES COORDINATOR.MORTICIAN INVESTIGATOR Work Phone: [facility] 01-10-2023 09:23-0500 SaO2% (BldA) [Mass fraction] 100 % Amadeo Karlos FAMILY SERVICES COORDINATOR.MORTICIAN INVESTIGATOR Work Phone: [facility] 01-10-2023 09:23-0500 Systolic blood pressure 144 mm[Hg] Amadeo Karlos FAMILY SERVICES COORDINATOR.MORTICIAN INVESTIGATOR Work Phone: [facility] 01-09-2023 13:51-0500 Body height 166.4 cm Silva Older FAMILY SERVICES COORDINATOR.MORTICIAN INVESTIGATOR Work Phone: [facility] 01-09-2023 13:51-0500 Body temperature 97.2 [degF] Silva Older FAMILY SERVICES COORDINATOR.MORTICIAN INVESTIGATOR Work Phone: [facility] 01-09-2023 13:51-0500 Body weight 115.21 kg Silva Older FAMILY SERVICES COORDINATOR.MORTICIAN INVESTIGATOR Work Phone: [facility] 01-09-2023 13:51-0500 Diastolic blood pressure 60 mm[Hg] Silva Older FAMILY SERVICES COORDINATOR.MORTICIAN INVESTIGATOR Work Phone: [facility] 01-09-2023 13:51-0500 Heart rate 87 /min Silva Older FAMILY SERVICES COORDINATOR.MORTICIAN INVESTIGATOR Work Phone: [facility] 01-09-2023 13:51-0500 Respiratory rate 18 /min Silva Older FAMILY SERVICES COORDINATOR.MORTICIAN INVESTIGATOR Work Phone: [facility] 01-09-2023 13:51-0500 SaO2% (BldA) [Mass fraction] 99 % Silva Older FAMILY SERVICES COORDINATOR.MORTICIAN INVESTIGATOR Work Phone: [facility] 01-09-2023 13:51-0500 Systolic blood pressure 126 mm[Hg] Silva Older FAMILY SERVICES COORDINATOR.MORTICIAN INVESTIGATOR Work Phone: [facility] 12-27-2022 08:02-0400 Body temperature 97.59 [degF] Silva Older FAMILY SERVICES COORDINATOR.MORTICIAN INVESTIGATOR Work Phone: [facility] 12-27-2022 08:02-0400 Diastolic blood pressure 58 mm[Hg] Silva Older FAMILY SERVICES COORDINATOR.MORTICIAN INVESTIGATOR Work Phone: [facility] 12-27-2022 08:02-0400 Heart rate 65 /min Silva Older FAMILY SERVICES COORDINATOR.MORTICIAN INVESTIGATOR Work Phone: [facility] 12-27-2022 08:02-0400 Respiratory rate 16 /min Silva Older FAMILY SERVICES COORDINATOR.MORTICIAN INVESTIGATOR Work Phone: [facility] 12-27-2022 08:02-0400 SaO2% (BldA) [Mass fraction] 93 % Silva Older FAMILY SERVICES COORDINATOR.MORTICIAN INVESTIGATOR Work Phone: [facility] 12-27-2022 08:02-0400 Systolic blood pressure 136 mm[Hg] Silva Older FAMILY SERVICES COORDINATOR.MORTICIAN INVESTIGATOR Work Phone: [facility] 11-26-2022 14:10-0400 Body height 166.4 cm Ramin Denbow PA-C Work Phone: [facility] 11-26-2022 14:10-0400 Body temperature 98.29 [degF] Ramin Denbow PA-C Work Phone: [facility] 11-26-2022 14:10-0400 Body weight 114.76 kg Ramin Denbow PA-C Work Phone: [facility] 11-26-2022 14:10-0400 Diastolic blood pressure 56 mm[Hg] Ramin Denbow PA-C Work Phone: [facility] 11-26-2022 14:10-0400 Heart rate 83 /min Ramin Denbow PA-C Work Phone: [facility] 11-26-2022 14:10-0400 Respiratory rate 14 /min Ramin Denbow PA-C Work Phone: [facility] 11-26-2022 14:10-0400 SaO2% (BldA) [Mass fraction] 97 % Ramin Denbow PA-C Work Phone: [facility] 11-26-2022 14:10-0400 Systolic blood pressure 136 mm[Hg] Ramin Denbow PA-C Work Phone: [facility] 11-07-2022 12:36-0400 Diastolic blood pressure 46 mm[Hg] Erin Older FAMILY SERVICES COORDINATOR.MORTICIAN INVESTIGATOR Work Phone: [facility] 11-07-2022 12:36-0400 Heart rate 76 /min Erin Older FAMILY SERVICES COORDINATOR.MORTICIAN INVESTIGATOR Work Phone: [facility] 11-07-2022 12:36-0400 Respiratory rate 14 /min Erin Older FAMILY SERVICES COORDINATOR.MORTICIAN INVESTIGATOR Work Phone: [facility] 11-07-2022 12:36-0400 Systolic blood pressure 147 mm[Hg] Erin Older FAMILY SERVICES COORDINATOR.MORTICIAN INVESTIGATOR Work Phone: [facility] 10-27-2022 12:38-0400 Body temperature 98.8 [degF] Sandy Mendes FAMILY SERVICES COORDINATOR.MORTICIAN INVESTIGATOR Work Phone: [facility] 10-27-2022 12:38-0400 Body weight 114.76 kg Sandy Mendes APRN.MORTICIAN INVESTIGATOR Work Phone: [facility] 10-27-2022 12:38-0400 Diastolic blood pressure 58 mm[Hg] Sandy Mendes FAMILY SERVICES COORDINATOR.MORTICIAN INVESTIGATOR Work Phone: [facility] 10-27-2022 12:38-0400 Heart rate 75 /min Sandy Mendes APRN.MORTICIAN INVESTIGATOR Work Phone: [facility] 10-27-2022 12:38-0400 Respiratory rate 16 /min Sandy Mendes APRN.MORTICIAN INVESTIGATOR Work Phone: [facility] 10-27-2022 12:38-0400 SaO2% (BldA) [Mass fraction] 98 % Sandy Mendes APRN.MORTICIAN INVESTIGATOR Work Phone: [facility] 10-27-2022 12:38-0400 Systolic blood pressure 148 mm[Hg] Sandy Mendes FAMILY SERVICES COORDINATOR.MORTICIAN INVESTIGATOR Work Phone: [facility] 07-12-2022 11:23-0400 Body height 166.4 cm Annette John Paul MONTEZ [facility] 07-12-2022 11:23-0400 Body weight [address] [facility] 05-02-2022 12:30-0500 Body temperature 98.6 [degF] Silva Older FAMILY SERVICES COORDINATOR.MORTICIAN INVESTIGATOR Work Phone: [facility] 05-02-2022 12:30-0500 Body weight 113.4 kg Silva Older FAMILY SERVICES COORDINATOR.MORTICIAN INVESTIGATOR Work Phone: [facility] 05-02-2022 12:30-0500 Diastolic blood pressure 46 mm[Hg] Silva Older FAMILY SERVICES COORDINATOR.MORTICIAN INVESTIGATOR Work Phone: [facility] 05-02-2022 12:30-0500 Heart rate 86 /min Silva Older FAMILY SERVICES COORDINATOR.MORTICIAN INVESTIGATOR Work Phone: [facility] 05-02-2022 12:30-0500 Respiratory rate 16 /min Silva Older FAMILY SERVICES COORDINATOR.MORTICIAN INVESTIGATOR Work Phone: [facility] 05-02-2022 12:30-0500 SaO2% (BldA) [Mass fraction] 97 % Silva Older FAMILY SERVICES COORDINATOR.MORTICIAN INVESTIGATOR Work Phone: [facility] 05-02-2022 12:30-0500 Systolic blood pressure 98 mm[Hg] Silva Older FAMILY SERVICES COORDINATOR.MORTICIAN INVESTIGATOR Work Phone: [facility] 02-05-2022 11:51-0500 Body height 165.1 cm Jame Hunt MD Work Phone: [facility] 02-05-2022 11:51-0500 Body temperature 98.49 [degF] Jame Hunt MD Work Phone: [facility] 02-05-2022 11:51-0500 Body weight 110.22 kg Jame Hunt MD Work Phone: [facility] 02-05-2022 11:51-0500 Diastolic blood pressure 50 mm[Hg] Jame Hunt MD Work Phone: [facility] 02-05-2022 11:51-0500 Heart rate 89 /min Jame Hunt MD Work Phone: [facility] 02-05-2022 11:51-0500 Respiratory rate 18 /min Jame Hunt MD Work Phone: [facility] 02-05-2022 11:51-0500 SaO2% (BldA) [Mass fraction] 96 % Jame Hunt MD Work Phone: [facility] 02-05-2022 11:51-0500 Systolic blood pressure 110 mm[Hg] Jame Hunt MD Work Phone: [facility] 01-29-2022 12:59-0500 Body temperature 98.8 [degF] Silva Older FAMILY SERVICES COORDINATOR.MORTICIAN INVESTIGATOR Work Phone: [facility] 01-29-2022 12:59-0500 Diastolic blood pressure 68 mm[Hg] Silva Older FAMILY SERVICES COORDINATOR.MORTICIAN INVESTIGATOR Work Phone: [facility] 01-29-2022 12:59-0500 Heart rate 84 /min Silva Older FAMILY SERVICES COORDINATOR.MORTICIAN INVESTIGATOR Work Phone: [facility] 01-29-2022 12:59-0500 SaO2% (BldA) [Mass fraction] 98 % Silva Older FAMILY SERVICES COORDINATOR.MORTICIAN INVESTIGATOR Work Phone: [facility] 01-29-2022 12:59-0500 Systolic blood pressure 140 mm[Hg] Silva Older FAMILY SERVICES COORDINATOR.MORTICIAN INVESTIGATOR Work Phone: [facility] 01-01-2022 13:54-0400 Body weight 112.04 kg Silva Older FAMILY SERVICES COORDINATOR.MORTICIAN INVESTIGATOR Work Phone: [facility] 01-01-2022 13:54-0400 Diastolic blood pressure 68 mm[Hg] Silva Older FAMILY SERVICES COORDINATOR.MORTICIAN INVESTIGATOR Work Phone: [facility] 01-01-2022 13:54-0400 Heart rate 80 /min Silva Older FAMILY SERVICES COORDINATOR.MORTICIAN INVESTIGATOR Work Phone: [facility] 01-01-2022 13:54-0400 Respiratory rate 16 /min Silva Older FAMILY SERVICES COORDINATOR.MORTICIAN INVESTIGATOR Work Phone: [facility] 01-01-2022 13:54-0400 Systolic blood pressure 144 mm[Hg] Silva Older FAMILY SERVICES COORDINATOR.MORTICIAN INVESTIGATOR Work Phone: [facility] 12-11-2021 14:24-0400 Diastolic blood pressure 62 mm[Hg] Silva Older FAMILY SERVICES COORDINATOR.MORTICIAN INVESTIGATOR Work Phone: [facility] 12-11-2021 14:24-0400 Heart rate 68 /min Silva Older FAMILY SERVICES COORDINATOR.MORTICIAN INVESTIGATOR Work Phone: [facility] 12-11-2021 14:24-0400 Respiratory rate 16 /min Silva Older FAMILY SERVICES COORDINATOR.MORTICIAN INVESTIGATOR Work Phone: [facility] 12-11-2021 14:24-0400 Systolic blood pressure 132 mm[Hg] Silva Older FAMILY SERVICES COORDINATOR.MORTICIAN INVESTIGATOR Work Phone: [facility] 10-20-2021 08:55-0400 Body weight 114.76 kg Jaci Zurawick FAMILY SERVICES COORDINATOR.MORTICIAN INVESTIGATOR Work Phone: [facility] 10-20-2021 08:55-0400 Diastolic blood pressure 50 mm[Hg] Jaci Zurawick FAMILY SERVICES COORDINATOR.MORTICIAN INVESTIGATOR Work Phone: [facility] 10-20-2021 08:55-0400 Heart rate 68 /min Jaci Zurawick FAMILY SERVICES COORDINATOR.MORTICIAN INVESTIGATOR Work Phone: [facility] 10-20-2021 08:55-0400 Respiratory rate 18 /min Jaci Zurawick FAMILY SERVICES COORDINATOR.MORTICIAN INVESTIGATOR Work Phone: [facility] 10-20-2021 08:55-0400 Systolic blood pressure 138 mm[Hg] Jaci Zurawick FAMILY SERVICES COORDINATOR.MORTICIAN INVESTIGATOR Work Phone: [facility] 09-28-2021 12:35-0400 Diastolic blood pressure 66 mm[Hg] Silva Older FAMILY SERVICES COORDINATOR.MORTICIAN INVESTIGATOR Work Phone: [facility] 09-28-2021 12:35-0400 Heart rate 72 /min Silva Older FAMILY SERVICES COORDINATOR.MORTICIAN INVESTIGATOR Work Phone: [facility] 09-28-2021 12:35-0400 Respiratory rate 16 /min Silva Older FAMILY SERVICES COORDINATOR.MORTICIAN INVESTIGATOR Work Phone: [facility] 09-28-2021 12:35-0400 Systolic blood pressure 140 mm[Hg] Silva Older FAMILY SERVICES COORDINATOR.MORTICIAN INVESTIGATOR Work Phone: [facility] 08-31-2021 08:32-0400 Body weight 112.95 kg Silva Older FAMILY SERVICES COORDINATOR.MORTICIAN INVESTIGATOR Work Phone: [facility] 08-31-2021 08:32-0400 Diastolic blood pressure 60 mm[Hg] Silva Older FAMILY SERVICES COORDINATOR.MORTICIAN INVESTIGATOR Work Phone: [facility] 08-31-2021 08:32-0400 Heart rate 75 /min Silva Older FAMILY SERVICES COORDINATOR.MORTICIAN INVESTIGATOR Work Phone: [facility] 08-31-2021 08:32-0400 Respiratory rate 16 /min Silva Older FAMILY SERVICES COORDINATOR.MORTICIAN INVESTIGATOR Work Phone: [facility] 08-31-2021 08:32-0400 SaO2% (BldA) [Mass fraction] 98 % Silva Older FAMILY SERVICES COORDINATOR.MORTICIAN INVESTIGATOR Work Phone: [facility] 08-31-2021 08:32-0400 Systolic blood pressure 130 mm[Hg] Silva Older FAMILY SERVICES COORDINATOR.MORTICIAN INVESTIGATOR Work Phone: [facility] 08-25-2021 08:22-0400 Body weight 113.4 kg Silva Older FAMILY SERVICES COORDINATOR.MORTICIAN INVESTIGATOR Work Phone: [facility] 08-25-2021 08:22-0400 Diastolic blood pressure 62 mm[Hg] Silva Older FAMILY SERVICES COORDINATOR.MORTICIAN INVESTIGATOR Work Phone: [facility] 08-25-2021 08:22-0400 Heart rate 72 /min Silva Older FAMILY SERVICES COORDINATOR.MORTICIAN INVESTIGATOR Work Phone: [facility] 08-25-2021 08:22-0400 Respiratory rate 16 /min Silva Older FAMILY SERVICES COORDINATOR.MORTICIAN INVESTIGATOR Work Phone: [facility] 08-25-2021 08:22-0400 Systolic blood pressure 134 mm[Hg] Silva Older FAMILY SERVICES COORDINATOR.MORTICIAN INVESTIGATOR Work Phone: [facility] 08-14-2021 12:01-0400 Body height 165.1 cm Jame Hunt MD Work Phone: [facility] 08-14-2021 12:01-0400 Body temperature 97.11 [degF] Jame Hunt MD Work Phone: [facility] 08-14-2021 12:01-0400 Diastolic blood pressure 44 mm[Hg] Jame Hunt MD Work Phone: [facility] 08-14-2021 12:01-0400 Heart rate 74 /min Jame Hunt MD Work Phone: [facility] 08-14-2021 12:01-0400 Respiratory rate 16 /min Jame Hunt MD Work Phone: [facility] 08-14-2021 12:01-0400 SaO2% (BldA) [Mass fraction] 100 % Jame Hunt MD Work Phone: [facility] 08-14-2021 12:01-0400 Systolic blood pressure 114 mm[Hg] Jame Hunt MD Work Phone: [facility] 07-03-2021 10:24-0400 Body weight 112.95 kg Josse Lance FAMILY SERVICES COORDINATOR.CHILD AND ADOLESCENT PSYCHOLOGIST Work Phone: [facility] 07-03-2021 10:24-0400 Diastolic blood pressure 56 mm[Hg] Josse Lance FAMILY SERVICES COORDINATOR.CHILD AND ADOLESCENT PSYCHOLOGIST Work Phone: [facility] 07-03-2021 10:24-0400 Heart rate 76 /min Josse Lance FAMILY SERVICES COORDINATOR.CHILD AND ADOLESCENT PSYCHOLOGIST Work Phone: [facility] 07-03-2021 10:24-0400 Respiratory rate 16 /min Josse Lance FAMILY SERVICES COORDINATOR.CHILD AND ADOLESCENT PSYCHOLOGIST Work Phone: [facility] 07-03-2021 10:24-0400 Systolic blood pressure 122 mm[Hg] Josse Lance FAMILY SERVICES COORDINATOR.CHILD AND ADOLESCENT PSYCHOLOGIST Work Phone: [facility] Encounters Encounter Date Encounter Type Care Provider Facility Start: 02-20-2023 End: 02-21-2023 ambulatory [facility] Facility:[facility] Start: 02-20-2023 End: 02-21-2023 [facility] Facility:[facility] Start: 02-11-2023 Telephone encounter Dasha Miller RN (R n) [facility] Procedures Date Procedure Procedure Detail Performing Clinician Start: 01-09-2023 [employer] COVI D-19 VACCINE (2022- SEASON) AGE 12+ YR Silva Older FAMILY SERVICES COORDINATOR.MORTICIAN INVESTIGATOR Work Phone: Start: 11-07-2022 Dxa bone density ximena dy 1/> sites axial skel Silva Older FAMILY SERVICES COORDINATOR.MORTICIAN INVESTIGATOR Work Phone: Start: 07-12-2022 Antibody screen JAME HUNT Plan of Treatment Date Care Activity Detail Author Start: 12-31-2028 Urine microalbumin profile [facility] Start: 09-13-2027 Colonoscopy COLONOSCOPY [facility] Start: 09-13-2027 COLORECTAL CANCER SCREENING COLORECTAL CANCER SCREENING [facility] Start: 11-07-2025 PNEUMOCOCCAL (4 - PP SV23 if available, else PCV20) PNEUMOCOCCAL (4 - PPSV23 if available, else PCV20) [facility] Start: 11-07-2025 PNEUMOCOCCAL (4 - PP SV23 or PCV20) PNEUMOCOCCAL (4 - PPSV23 or PCV20) [facility] Start: 11-07-2025 PNEUMOCOCCAL: 65+ (4 - PPSV23 if available, else PCV20) PNEUMOCOCCAL: 65+ (4 - PPSV23 if available, else PCV20) [facility] Start: 11-07-2025 PNEUMOCOCCAL: 65+ (4 - PPSV23 or PCV20) PNEUMOCOCCAL: 65+ (4 - PPSV23 or PCV20) [facility] Start: 01-10-2024 Annual PCP Team Case Management Rn braeden Disease Visit Annual PCP Team Chronic Disease Visit [facility] Start: 01-10-2024 BP Controlled (<130/80) BP Controlle d (<130/80) [facility] Start: 01-10-2024 RSV Vaccine (1 - 1-d ose 60+ series) RSV Vaccine (1 - 1-dose 60+ series) [facility] Immunizations Immunization Date Immunization Notes Care Provider Guido baptiste 01-09-2023 COVID-19 vaccine, ag e 12+ yr, season ([employer] ([employer]) Silva Plasencia FAMILY SERVICES COORDINATOR.MORTICIAN INVESTIGATOR Work Phone: [facility] 12-09-2022 influenza, injectabl e, quadrivalent, preservative free Kel Victoria MD Work Phone: [facility] 10-15-2022 Hepatitis B vaccine (recombinant), CpG adjuvanted Jame Hunt MD Work Phone: [facility] 08-13-2022 Hepatitis B vaccine (recombinant), CpG jonathan Hunt MD Work Phone: [facility] 07-09-2022 Hepatitis B vaccine (recombinant), CpG adjuvantkit Hunt MD Work Phone: [facility] 06-11-2022 Hepatitis B vaccine (recombinant), CpG adjuvantkit Hunt MD Work Phone: [facility] 01-15-2022 pneumococcal (PCV20) vaccine, 20 valent (PREVNAR 20) Jame Hunt MD Work Phone: [facility] 11-25-2021 COVID-19 booster vaccine, age 12+ yr, bivalent ([employer]) Jame Hunt MD Work Phone: [facility] 11-20-2021 influenza, injectabl e, quadrivalent, contains preservative Jame Hunt MD Work Phone: [facility] 11-20-2021 influenza, injectabl e, quadrivalent, preservative free Jame Hunt MD Work Phone: [facility] 11-20-2021 influenza virus vacc ine, unspecified formulation Jame Hunt MD Work Phone: [facility] 10-20-2021 influenza, seasonal, injectable Jame Hunt MD Work Phone: [facility] 10-11-2021 Hepatitis B vaccine (recombinant), CpG jonathan Hunt MD Work Phone: [facility] 09-11-2021 zoster vaccine recombinant Kim La [facility] Work Phone: [facility] 08-15-2021 Hepatitis B vaccine (recombinant), CpG jonathan Hunt MD Work Phone: [facility] 07-10-2021 Hepatitis B vaccine (recombinant), CpG jonathan Hunt MD Work Phone: [facility] 06-15-2021 zoster vaccine recombinant Kim La [facility] Work Phone: [facility] 06-12-2021 Hepatitis B vaccine (recombinant), CpG jonathan Hunt MD Work Phone: [facility] 05-02-2021 COVID-19 vaccine, ag e 12+ yr (PFIZER-[employer]IONTE[employer] - [employer]) Kim La [facility] Work Phone: [facility] Work Phone: 03-13-2021 Hepatitis B vaccine (recombinant), CpG adjuvanted Jame Hunt MD Work Phone: [facility] 01-09-2021 Hepatitis B vaccine (recombinant), CpG adjuvanted Jame Hunt MD Work Phone: [facility] 12-30-2020 influenza, seasonal, injectable, preservative free Renetta Mendez RN [facility] 12-12-2020 Hepatitis B vaccine (recombinant), CpG adjuvanted Jame Hunt MD Work Phone: [facility] 11-14-2020 Hepatitis B vaccine (recombinant), CpG adjuvanted Jame Hunt MD Work Phone: [facility] 11-14-2020 pneumococcal polysaccharide vaccine, 23 valent Jame Hunt MD Work Phone: [facility] 11-07-2020 hepatitis B vaccine, adult dosage Jame Hunt MD Work Phone: [facility] Work Phone: 11-07-2020 pneumococcal polysaccharide vaccine, 23 valent Jame Hunt MD Work Phone: [facility] Work Phone: 11-01-2020 influenza, injectabl e, quadrivalent, contains preservative Jame Hunt MD Work Phone: [facility] Work Phone: 11-01-2020 Seasonal, quadrivale nt, recombinant, injectable influenza vaccine, preservative free Renetta Mendez RN [facility] 10-31-2020 influenza virus vacc ine, unspecified formulation Renetta Mendez RN [facility] 06-02-2020 COVID-19 original vaccine, age 12+ yr, monovalent (PFIZER-BIONTECH - PURPLE TOP) Renetta Mendez RN [facility] 06-01-2020 COVID-19 vaccine, ag e 12+ yr ([employer] (ZEEP)-OBX BoatworksNTECH - PURPLE TOP) Jame Hunt MD Work Phone: [facility] 12-31-2019 influenza, injectabl e, quadrivalent, preservative free Jame Hunt MD Work Phone: [facility] 12-31-2018 influenza, injectabl e, quadrivalent, contains preservative Jame Hunt MD Work Phone: [facility] 12-31-2018 tetanus and diphther ia toxoids, adsorbed, preservative free, for adult use (5 Lf of tetanus toxoid and 2 Lf of diphtheria toxoid) Jame Hunt MD Work Phone: [facility] 12-16-2017 influenza, seasonal, injectable, preservative free Renetta Mendez RN [facility] 12-08-2017 influenza virus vacc ine, unspecified formulation Renetta Mendez RN [facility] 12-07-2016 pneumococcal conjuga te vaccine, 13 valent Jame Hunt MD Work Phone: [facility] Work Phone: 11-30-2016 influenza, seasonal, injectable Jame Hunt MD Work Phone: [facility] 05-28-2016 influenza, seasonal, injectable, preservative free Renetta Mendez RN [facility] 05-28-2016 pneumococcal polysaccharide vaccine, 23 valent Renetta Mendez RN [facility] 01-02-2016 influenza, seasonal, injectable Jame Hunt MD Work Phone: [facility] 01-02-2016 influenza, seasonal, injectable, preservative free Renetta Mendez RN [facility] 12-24-2014 influenza, injectabl e, quadrivalent, preservative free Jame Hunt MD Work Phone: [facility] 12-21-2014 influenza, seasonal, injectable, preservative free Renetta Mendez RN [facility] 12-03-2013 influenza, seasonal, injectable, preservative free Renetta Mendez RN [facility] 12-03-2013 pneumococcal polysaccharide vaccine, 23 valent Jame Hunt MD Work Phone: [facility] 12-03-2013 pneumococcal vaccine , unspecified formulation Renetta Mendez RN [facility] 12-08-2008 influenza virus vacc ine, unspecified formulation Jame Hunt MD Work Phone: [facility] 11-24-2008 pneumococcal polysaccharide vaccine, 23 valent Kim La [facility] Work Phone: [facility] Work Phone: 05-04-2008 haemophilus influenz ae type b vaccine, PRP-T conjugate Jame Hunt MD Work Phone: [facility] 05-04-2008 meningococcal polysaccharide vaccine (MPSV4) Jame Hunt MD Work Phone: [facility] Work Phone: 05-04-2008 pneumococcal polysaccharide vaccine, 23 valent Jame Hunt MD Work Phone: [facility] Work Phone: 02-19-2008 hepatitis A and hepatitis B vaccine Jame Hunt MD Work Phone: [facility] 02-19-2008 tetanus toxoid, redu rios diphtheria toxoid, and acellular pertussis vaccine, adsorbed Jame Hunt MD Work Phone: [facility] 12-11-2007 influenza virus vacc ine, unspecified formulation Jame Hunt MD Work Phone: [facility] 12-31-2006 influenza virus vacc ine, unspecified formulation Jame Hunt MD Work Phone: [facility] Payers Date Payer Category Payer Medicaid [employer]ICA[employer] [id number] 2021-Present [phone] [address] [place] [address] Medicaid [id number] 2021 Medicaid [id number] 2021 Medicaid [id number] 2021 Medicaid [id number] 2021 Medicaid [id number] 2021 Medicare HUMANA MEDICARE HUMANA GOLD PLUS [id number] 2021-Present [phone] [address] [address] [place] [address] O [id number] 2021 Medicare HUMANA MEDICARE HUMANA GOLD PLUS [id number] 2021-Present [phone] [address] [address] [place] [address] O [id number] 2021 Private Health Insurance [id number] Social History Date Type Detail Facility Start: 10-04-2016 End: 02-05-2022 Tobacco smoking status NHIS Never smoked tobacco [facility] Start: 10-04-2016 End: 02-05-2022 Tobacco use and exposure Smokeless tobacco non-user [facility] Start: 04-05-2021 End: 01-10-2023 Alcohol intake Current non-drinker of alcohol (finding) [facility] Start: 05-22-2021 End: 01-22-2022 History SDOH Alcohol Frequency 1 [facility] Start: 05-22-2021 End: 01-22-2022 History SDOH Alcohol Std Drinks 98 [facility] Start: 05-22-2021 End: 01-22-2022 History SDOH Social Connections Phone 5 [facility] Start: 05-22-2021 End: 01-22-2022 History SDOH Social Connections Get Together 2 [facility] Start: 05-22-2021 End: 01-22-2022 History SDOH Social Connections Living 3 [facility] Start: 05-22-2021 History SDOH Financial 4 [facility] Start: 01-11-2019 Education 12 [facility] Start: 09-14-2016 End: 02-05-2022 Tobacco Comment Parents both smoked in childhood home. No household ETS since. [facility] Start: 1955 Sex Assigned At Female [facility] Work Phone: Start: 05-13-2021 End: 02-05-2022 Exposure to SARS-CoV-2 (event) Not sure [facility] Work Phone: Start: 08-15-2021 End: 08-25-2021 Exposure to SARS-CoV-2 (event) Unable to assess [facility] History of tobacco use Passive smoker [facility] Start: 01-22-2022 History SDOH Alcohol Std Drinks 0 [facility] Start: 01-22-2022 End: 07-12-2022 History of Social function [facility] Start: 01-22-2022 End: 07-12-2022 Social connection and isolation panel [facility] Do you belong to any clubs or organizations such as caodaism groups, unions, fraternal or athletic groups, or school groups? No [facility] Are you now , , , , never or living with a partner? [facility] How often to you hav e a drink containing alcohol? Never [facility] How many standard dr inks containing alcohol do you have on a typical day? Patient does not drink [facility] How hard is it for y ou to pay for the very basics like food, housing, medical care, and heating Somewhat hard [facility] Do you feel stress - tense, restless, nervous, or anxious, or unable to sleep at night because your mind is troubled all the time - these days [OSQ] To some extent [facility] (I/We) worried whedonald er (my/our) food would run out before (I/we) got money to buy more. Sometimes true [facility] The food that (I/we) bought just didn't last, and (I/we) didn't have money to get more. Never true [facility] Start: 09-05-2016 Gender identity Identifies as female gender (finding) [facility] Work Phone: Start: 09-05-2016 Sexual orientation Heterosexual (finding) [facility] Work Phone: Medical Equipment Procedure [...] WEIGHT - 109.5 - 02/11/23 scanned into [employer]. Haritha Chan documented in this encounter [facility] 02-11-2023 Miscellaneous Notes Called patient [...] 2023 1:45 PM documented in this encounter [facility] 01-22-2023 Miscellaneous Notes REMEDIOS 01/09/23 [...] sent. Aleyda Cary documented in this encounter [facility] 01-17-2023 Miscellaneous Notes Spoke with patient who indicated she was cleared by Dr. Bey at [facility] for her EGD. Patient indicated she does not need appointment with Dr. Vargas and wishes to cancel at this time. Will get Dr. Bey to complete EGD clearance form. Appointment cancelled per patient's request. Dasha Hu, RN Patient states that she had an appointment at [facility] with Dr Lerner for EGD but [...] is confused. Advised patient that maybe her flotation tender helper is sending her for cardiology clearance before the procedure. Patient states that she just had a cardiology clearance on 01/10/[address] Bey for a liver transplant. Patient is not sure why she needs to be seen by Dr. Vargas now. Please contact patient back at [phone]. documented in this encounter [facility] 01-17-2023 History of Present illness Narrative [facility] Telephonic Outreach Provider Action/FYI Contacted for: [...] daily weight at home? No Based on supervisor pleating, the following disposition is advised: No symptoms or symptoms present, not severe. Routed to: No Action Needed NOELLE Education Provided this Outreach: No Sienna Miller RN January 17, 2023 10:50 AM documented in this encounter [facility] 01-14-2023 Miscellaneous Notes Patient has [...] Nell Lemons LPN. documented in this encounter [facility] 01-10-2023 Miscellaneous Notes Clearance form received and scanned into chart. Patient has appt with Dr. Vargas on 01/23 at 2:20. Lucrecia Villatoro documented in this encounter [facility] 01-10-2023 Note [facility] 01-10-2023 History of Present illness Narrative Images from the original note were not included. 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 No colitis. Poor rectal sphincter tone. Referred to Oriana Newberry. COLONOSCOPY FLX DX W/COLLJ SPEC WHEN PFRMD 11/29/2011 [facility] Main /Dr. Anderson COLONOSCOPY FLX DX W/COLLJ SPEC WHEN PFRMD 07/2011 J[facility] COLONOSCOPY FLX DX W/COLLJ SPEC WHEN PFRMD 09/2011 Dr. Lagunas [facility] ESOPHAGOGASTRODUODENOSCOPY TRANSORAL DIAGNOSTIC 12/2009 [facility] Janneth ESOPHAGOGASTRODUODENOSCOPY TRANSORAL DIAGNOSTIC 12/2010 [facility] Janneth FISTULA HERNIA REPAIR HX 12/2008 [...] CA Stroke Father Ischemic Heart Disease Father [place] age 70s Diabetes Mother age 76 other [...] mouth once daily. Blood-Glucose Meter,Continuous (DEXCOM G7 HIP HOP ARTIST) misc Use to check blood sugar at [...] by others. CONTACT INFORMATION: Lizeth Bey MD, [facility] Section of Clinical Cardiology [facility] Department of Cardiovascular Medicine Heart and Vascular [facility] Desk J2-4 [facility] [place] [address] Office - [phone] extension [phone] Office Appointments: [phone] -[phone] extension [phone] Voice recognition software was used in the creation of this document. There may be unintended errors in spelling, grammar, syntax or punctuation present. documented in this encounter [facility] 01-10-2023 Note [facility] 01-10-2023 History of Present illness Narrative NAME: Christina Guerrier [facility] NO: [id number] REFERRING PHYSICIAN: Kel Victoria PRESENTING COMPLAINT: Pre-kidney [...] 2023 5:39 PM documented in this encounter [facility] 01-09-2023 Note [facility] 01-09-2023 History of Present illness Narrative CC: Patient presents with: ED Follow-up HPI Christina Guerrier is a 67 year old female who presents today for ER follow-up. Facility: [facility] Er on both [...] an EGD in a few weeks at [facility] with Dr. Lerner [...] she is requesting a refill on her [place] as it is flaring up and with [...] FLX DX W/COLLJ SPEC WHEN PFRMD 11/29/2011 [facility] Main /Dr. Anderson COLONOSCOPY FLX DX W/COLLJ SPEC WHEN PFRMD 07/2011 J[facility] COLONOSCOPY FLX DX W/COLLJ SPEC WHEN PFRMD 09/2011 Dr. Lagunas [facility] ESOPHAGOGASTRODUODENOSCOPY TRANSORAL DIAGNOSTIC 12/2009 [facility] Janneth ESOPHAGOGASTRODUODENOSCOPY TRANSORAL DIAGNOSTIC 12/2010 [facility] Janneth FISTULA HERNIA REPAIR HX 12/2008 [...] mouth once daily. Blood-Glucose Meter,Continuous (DEXCOM G7 HIP HOP ARTIST) [facility] [place] [place] Use to check blood sugar at least [...] CA Stroke Father Ischemic Heart Disease Father [place] age 70s Diabetes Mother age 76 other [...] Aged Out DATA REVIEWED: Outside chart from [facility] reviewed. ASSESSMENT/PLAN: 1. [...] Silva Plasencia APRN.CNP documented in this encounter [facility] 01-09-2023 Miscellaneous Notes Labs faxed to Dr Lerner office. Labs are in process Pt needs lab results that were drawn on 01/08/2023 to be faxed to Dr. Lerner/Dr. Maurer Phone # [phone] documented in this encounter [facility] 01-08-2023 Miscellaneous Notes Samanta with [facility] calls to request most recent labs be faxed to: [phone]. Results faxed as requested. Monica Carter LPN documented in this encounter [facility] 01-04-2023 Note [facility] 01-04-2023 History of Present illness Narrative Images from the original note were not included. Primary Care Pharmacy Visit CC (Reason for Consult): (E11.00, Z79.4) Type 2 diabetes mellitus with hyperosmolarity 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, with long-term current use of insulin ([facility]) Goal(s): A1c < 8% Last Collaborating Physician Visit: 12/27/22 Christina Guerrier is a 67 year old female presenting for follow up visit telephone call. Patient consents to pharmacy collaborative practice agreement. . At visit with MORTICIAN INVESTIGATOR on 12/26 the following changes were made: instructed Decrease lantus to half dose if not consistently eating. Do NOT take the 25mg novolog if not eating and go by sliding scale only. At last visit with MORTICIAN INVESTIGATOR on 12/27, was instructed that she may [...] finish the cans) Exercise: limited GLYCEMIC CONTROL: [email or web address] CLARITY SHARE CODE - [id number] Past medical history reviewed. MEDICATIONS: Adherence: denies [...] once daily. 270 tablet 3 Blood-Glucose Meter,Continuous ([employer] G7 HIP HOP ARTIST) [facility] [place] [place] Use to check blood sugar at least [...] with long-term current use of insulin ([facility]) - ICD9: 250.20, V58.67, ICD10: E11.00, Z79.4 [...] was 20 minutes. documented in this encounter [facility] 12-27-2022 Note [facility] 12-27-2022 History of Present illness Narrative CC: Patient presents with: Recheck: ER follow up, abdominal pain HPI Christina Guerrier is a 67 year old female who presents today for ER follow-up. 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 No colitis. Poor rectal sphincter tone. Referred to Oriana [facility]berry. COLONOSCOPY FLX DX W/COLLJ SPEC WHEN PFRMD 11/29/2011 [facility] Main /Dr. Anderson COLONOSCOPY FLX DX W/COLLJ SPEC WHEN PFRMD 07/2011 Jann[facility] COLONOSCOPY FLX DX W/COLLJ SPEC WHEN PFRMD 09/2011 Dr. Lagunas [facility] ESOPHAGOGASTRODUODENOSCOPY TRANSORAL DIAGNOSTIC 12/2009 [facility] Janneth ESOPHAGOGASTRODUODENOSCOPY TRANSORAL DIAGNOSTIC 12/2010 [facility] Janneth FISTULA HERNIA REPAIR HX 12/2008 [...] tablets by mouth once daily. Blood-Glucose Meter,Continuous ([employer] G7 HIP HOP ARTIST) [facility] [place] [place] Use to check blood sugar at least [...] CA Stroke Father Ischemic Heart Disease Father [place] age 70s Diabetes Mother age 76 other [...] Aged Out DATA REVIEWED: Outside chart from [facility] reviewed. ASSESSMENT/PLAN: 1. [...] Silva Plasencia APRN.CNP documented in this encounter [facility] 12-26-2022 Note [facility] 12-24-2022 Miscellaneous Notes Letter sent to patient ness per her request. Please print and process Patient calls to request a letter for [employer]. Patient reports that she receives gas vouchers to get to doctor appointments here and at main campus. The letter needs to state that patient is an established patient with the [facility] and needs to be addressed to Poly Shafer at [employer]. Patient requests it be uploaded to when completed. Janelle Crocker RN documented in this encounter [facility] 12-20-2022 Note [facility] 12-20-2022 History of Present illness Narrative CDM [...] daily weight at home? No Based on supervisor pleating, the following disposition is advised: No symptoms or symptoms present, not severe. Routed to: No Action Needed NOELLE Education Provided this Outreach: No Sienna Miller, NIEVES December 20, 2022 1:27 PM documented in this encounter [facility] 12-03-2022 Note [facility] 11-26-2022 Note [facility] 11-26-2022 Note [facility] 11-26-2022 History of Present illness Narrative CC: [...] CKD (chronic kidney disease) Dialysis M/W/F [facility] COPD (chronic obstructive pulmonary disease) (HCC) Diabetes [...] W/COLLJ SPEC WHEN PFRMD 09/2011 Dr. Lagunas [facility] ESOPHAGOGASTRODUODENOSCOPY TRANSORAL DIAGNOSTIC 12/2009 [facility] Janneth ESOPHAGOGASTRODUODENOSCOPY TRANSORAL DIAGNOSTIC 12/2010 [facility] Janneth FISTULA HERNIA REPAIR HX 12/2008 [...] tablets by mouth once daily. Blood-Glucose Meter,Continuous ([employer] G7 HIP HOP ARTIST) [facility] [place] [place] Use to check blood sugar at least four (4) times daily. Blood-Glucose Sensor ([email or web address] G7 SENSOR) brady Apply new sensor every [...] CA Stroke Father Ischemic Heart Disease Father [place] age 70s Diabetes Mother age 76 other [...] therapy advised. Pain control addressed (already has [place] rx from hip pain appt) Will be [...] Ramin Mack PA-C documented in this encounter [facility] 11-22-2022 Note [facility] 11-22-2022 History of Present illness Narrative CDM [...] daily weight at home? No Based on supervisor pleating, the following disposition is advised: No symptoms or symptoms present, not severe. Routed to: No Action Needed NOELLE Education Provided this Outreach: No Sienna Miller RN November 22, 2022 10:32 AM documented in this encounter [facility] 11-20-2022 Miscellaneous Notes REMEDIOS 11/07/22 [...] Litzy Esparza Pss documented in this encounter [facility] 11-07-2022 Note [facility] 11-07-2022 Note [facility] 11-07-2022 Note [facility] 11-07-2022 History of Present illness Narrative CC: [...] night and keeping her awake Treated with [place], with minor relief of symptoms. REVIEW OF [...] W/COLLJ SPEC WHEN PFRMD 09/2011 Dr. Lagunas [facility] ESOPHAGOGASTRODUODENOSCOPY TRANSORAL DIAGNOSTIC 12/2009 [facility] Janneth ESOPHAGOGASTRODUODENOSCOPY TRANSORAL DIAGNOSTIC 12/2010 [facility] Janneth FISTULA HERNIA REPAIR HX 12/2008 [...] mouth once daily. Blood-Glucose Meter,Continuous (DEXCOM G7 HIP HOP ARTIST) misc Use to check blood sugar at [...] each sensor change. Blood-Glucose Meter,Continuous (DEXCOM G6 HIP HOP ARTIST) misc Use to check blood sugar at [...] CA Stroke Father Ischemic Heart Disease Father [place] age 70s Diabetes Mother age 76 other [...] activity was identified. 11/07/2022 by Erin Plasencia APRN.MORTICIAN INVESTIGATOR Follow-up and further recommendations pending results of [...] Erin Plasencia APRN.CNP documented in this encounter [facility] 11-07-2022 History of Present illness [...] 2022 11:14 AM documented in this encounter [facility] 10-28-2022 Miscellaneous Notes Pt was notified of the results. Pt verbalized understanding. Nasra Becerril MA Please advise patient that test results came back negative. Rash is not shingles. Should follow-up if signs and symptoms seem to be getting worse not better. documented in this encounter [facility] 10-27-2022 Note [facility] 10-27-2022 History of Present illness Narrative Images [...] history is provided by the patient. No regional service manager was used. Rash Review of Systems Constitutional: [...] CKD (chronic kidney disease) Dialysis M/W/F [facility] COPD (chronic obstructive pulmonary disease) (HCC) Diabetes mellitus without mention of complication Diabetic polyneuropathy (HCC) 02/04/2017 Disorder of thyroid DVT (deep venous thrombosis) (HCC) Esophageal reflux Hammer toes, bilateral 11/30/2016 History of transfusion Hypertension Incisional hernia 12/30/2008 Liver replaced by transplant ([facility]) 2008 - Cirrhosis s/p OLT 2008 - [...] W/COLLJ SPEC WHEN PFRMD 09/2011 Dr. Lagunas [facility] ESOPHAGOGASTRODUODENOSCOPY TRANSORAL DIAGNOSTIC 12/2009 [facility] Janneth ESOPHAGOGASTRODUODENOSCOPY TRANSORAL DIAGNOSTIC 12/2010 [facility] Janneth FISTULA HERNIA REPAIR HX 12/2008 [...] mouth once daily. Blood-Glucose Meter,Continuous (DEXCOM G7 HIP HOP ARTIST) [facility] [place] [place] Use to check blood sugar at least [...] each sensor change. Blood-Glucose Meter,Continuous (DEXCOM G6 HIP HOP ARTIST) mis Use to check blood sugar at least four (4) times daily. Blood-Glucose Sensor (DEXCOM G6 SENSOR) brady Apply new sensor every ten (10) days to abdomen. FAMILY HISTORY Problem Relation Age of Onset Cancer Father age 73 lung CA Stroke Father Ischemic Heart Disease Father [place] age 70s Diabetes Mother age 76 other [...] Sandy Mendes APRN.NATHALY documented in this encounter [facility] 10-26-2022 Note [facility] 10-26-2022 History of Present illness Narrative [facility] Telephonic Outreach Provider Action/FYI Contacted for: [...] daily weight at home? No Based on supervisor pleating, the following disposition is advised: No symptoms or symptoms present, not severe. Routed to: No Action Needed NOELLE Education Provided this Outreach: No Sienna Miller RN October 26, 2022 1:27 PM documented in this encounter [facility] 10-26-2022 Note [facility] 10-23-2022 Miscellaneous Notes Pt. ret'd call and was r/s for 10/26/22. 1st attempt to reschedule. Called and lmom. Primary Care Pharmacy Rescheduling Outreach Call center, please contact patient and reschedule telephone and virtual visit for Diabetes management within ~4 week(s). (Visit length: 30 minutes) Thank you, Charlotte Gurrola RPh 10/22/2022 4:11 PM documented in this encounter [facility] 10-22-2022 Note [facility] 09-28-2022 Note [facility] [facility] Miscellaneous Notes Leighann from patients dialysis center calls in requesting to speak with a coordinator regarding her restrictions. Patient is saying that she cannot have any vinegar and they are questioning the reasoning why. She can be reached at [phone]. documented in this encounter [facility] 08-31-2022 Note [facility] 08-29-2022 Note [facility] 08-29-2022 Note [facility] 08-29-2022 History of Present illness Narrative The [...] q 6 hours prn itching/rash ROUTING TO SIVLA PLASENCIA APRN, CNP FOR REVIEW Pt denies [...] pounds in a week? No Based on supervisor pleating, the following disposition is advised: No symptoms or symptoms present, not severe. Routed to: No Action Needed NOELLE Education Provided this Outreach: No Dasha Colvin RN August 29, 2022 4:27 PM documented in this encounter [facility] 08-29-2022 Miscellaneous Notes Addended by: ERIN PLASENCIA on: 08/29/2022 05:36 PM Modules accepted: Orders documented in this encounter [facility] 08-28-2022 Note [facility] 08-28-2022 History of Present illness Narrative [facility] Telephonic Outreach Provider Essie/HARIKA Made call #1. Someone picked up phone and hung it up. End outreach Contacted for: Routine Telephonic Outreach Contact made with patient: No, left message. Someone answered and hung up. Dasha Colvin RN August 28, 2022 2:50 PM documented in this encounter [facility] 08-07-2022 Note [facility] 08-07-2022 History of Present illness Narrative Images [...] made: No medication changes made. At last [employer] message on 07/24/22, lowered insulin dose due [...] 270 tablet 3 Blood-Glucose Meter,Continuous (DEXCOM G7 HIP HOP ARTIST) [facility] [place] [place] Use to check blood sugar at least [...] 1 Each 3 Blood-Glucose Meter,Continuous (DEXCOM G6 HIP HOP ARTIST) [facility] [place] [place] Use to check blood sugar at least [...] with long-term current use of insulin ([facility]) - ICD9: 250.20, V58.67, ICD10: E11.00, Z79.4 [...] was 18 minutes. documented in this encounter [facility] 07-17-2022 Note [facility] 07-13-2022 Note [facility] 07-13-[address] - 07/13/2022 [...] dialysis RD 6. Consider calorie intake of 2791-5893 calories for weight loss (RMR - 300-500 calories) documented in this encounter [facility] 07-12-2022 Note [facility] 07-12-2022 Note [facility] 07-12-2022 History of Present illness Narrative [facility] Transplant Evaluation CC: Consultation for Kidney transplant evaluation. Referred by: Ricki Dc [id number] [place] [id number] I will communicate with the referring provider [...] FLX DX W/COLLJ SPEC WHEN PFRMD 11/29/2011 [facility] Main /Dr. Anderson COLONOSCOPY FLX DX W/COLLJ SPEC WHEN PFRMD 07/2011 Janneth COLONOSCOPY FLX DX W/COLLJ SPEC WHEN PFRMD 09/2011 Dr. Lagunas [facility] ESOPHAGOGASTRODUODENOSCOPY TRANSORAL DIAGNOSTIC 12/2009 [facility] Janneth ESOPHAGOGASTRODUODENOSCOPY TRANSORAL DIAGNOSTIC 12/2010 [facility] Janneth FISTULA HERNIA REPAIR HX 12/2008 [...] mouth once daily. Blood-Glucose Meter,Continuous (DEXCOM G7 HIP HOP ARTIST) [facility] [place] [place] Use to check blood sugar at least [...] each sensor change. Blood-Glucose Meter,Continuous (DEXCOM G6 HIP HOP ARTIST) [facility] [place] [place] Use to check blood sugar at least [...] CA Stroke Father Ischemic Heart Disease Father [place] age 70s Diabetes Mother age 76 other [...] a prior CC echocardiographic exam for comparison [facility]:04/04/2021 Impression: Severe disease of the proximal LAD [...] Other chronic findings, as above. PAP Test: [facility] Mammogram: 05/08/2022 IMPRESSION: NEGATIVE There [...] Kel Victoria MD documented in this encounter [facility] 07-12-2022 Note [facility] 07-12-2022 History of Present illness Narrative Nutrition [...] dialysis RD 6. Consider calorie intake of 0761-1606 calories for weight loss (RMR - 300-500 [...] likes at dialysis. It is sold on [employer] and she is gong to look into [...] burgers. Snack - frozen fruit Beverages - Tripp crush 0; water with pills; 1-2 boosts daily; Take Out: 2x/week: fish sandwich from [employer]. Alcohol- not assessed. Vitamins/Supplements - vitamin b [...] 11:23 AM PAGER: documented in this encounter [facility] 07-12-2022 Note [facility] 07-10-2022 Miscellaneous Notes Patient calls and notified that provider had sent hydrocortisone cream to [facility] pharmacy for itching. Patient voiced understanding. [...] time. Patient is requesting a script for [place] in place of the ultram. Christina Padmini Guerrier is calling Jame Hunt MD today with concern since being prescribed Tramadol she is having itching, stated on her back. Please call Patient. Patient has been identified by name and birthdate. Duration of symptoms: N/A Person calling: self Call patient at: on cell [phone] (home) [phone] (cell) Was an appointment scheduled: No Closing statement: Symptom Call: Thank you for calling [facility], your call is very important. A nurse will call in approximately 2-4 hours during business hours. If this is an emergency, please contact 911. Aleyda Mendoza Pss documented in this encounter [facility] 07-05-2022 Note [facility] 07-05-2022 History of Present illness Narrative PRE-TRANSPLANT [...] about Kidney Allocation Policy -Directions to access [facility]'s data through the [facility] website. -Informed Consent for Transplant Program Participation patient education packet -National Kidney Registry pamphlet -Covid-19 Vaccination for Transplant Candidates Method of Instruction: Group class instruction Verbal instruction Computer Patient/Family Response: Patient asked appropriate questions, which were answered satisfactorily. Follow-Up Plan: Contact information given. Referral/Recommendation: None Renetta Mendez RN Pre-Gastroenterology Manager documented in this encounter [facility] 06-26-2022 Note [facility] 06-26-2022 History of Present illness Narrative Images [...] admits to missed doses Was traveling to [place] over the weekend and had some missed dose of insulin Has not started to use the sliding scale insulin with Novolog, taking 25 units with meals Continues to have intermittent connection with phone and sensor, Dexcom G7 was ordered and she is awaiting to hear from DME about approval Will be undergoing kidney transplant evaluation GLYCEMIC CONTROL: - Share code: [id number] CGM Report ROS: As above. Patient denies [...] 270 tablet 3 Blood-Glucose Meter,Continuous (DEXCOM G7 HIP HOP ARTIST) [facility] [place] [place] Use to check blood sugar at least [...] 1 Each 3 Blood-Glucose Meter,Continuous (DEXCOM G6 HIP HOP ARTIST) [facility] [place] [place] Use to check blood sugar at least [...] with long-term current use of insulin ([facility]) - ICD9: 250.20, V58.67, ICD10: E11.00, Z79.4 [...] was 20 minutes. documented in this encounter [facility] 06-21-2022 Miscellaneous Notes Patient notified. [...] for the weekend and would like to pick up worker chico. Patient has been identified by name [...] the preferred pharmacy. documented in this encounter [facility] 06-14-2022 Note [facility] 06-14-2022 History of Present illness Narrative CDM [...] daily weight at home? No Based on supervisor pleating, the following disposition is advised: Symptoms present, not severe. Routed to: No Action Needed NOELLE Education Provided this Outreach: No Roxie Palmer RN June 14, 2022 2:38 PM documented in this encounter [facility] 06-12-2022 Miscellaneous Notes Patient requesting all her meds be sent to [facility] b/c they will send them to her home. Pended all accept the torsemide 20 mg 2 tabs daily- patient reports Dr. Dc, manager auto has been having her take 3 tabs daily to equal 60 mg daily for the past week. Asking pcp to write new rx and send to [facility]. Patient has been identified by [...] Estefani Patel RN documented in this encounter [facility] 05-30-2022 Note [facility] 05-29-2022 Note [facility] 05-29-2022 Miscellaneous Notes Patient currently receives Dexcom G6 from DME ([facility]). She is interested in upgrading to the Dexcom G7 model. We discussed that Medicare only covers a new reader every 5 years but she may be able to get Dexcom G7 sensors to use with phone. [facility] DME needs printed orders for Dexcom G7 model. Please process pended orders as print rx. Once PCP has signed, please fax to [facility] at [phone]. Pending orders: Requested Prescriptions Pending Prescriptions Disp Refills Blood-Glucose Meter,Continuous (DEXCOM G7 HIP HOP ARTIST) misc 1 Each 0 Sig: Use to check blood sugar at least four (4) times daily. Blood-Glucose Sensor (DEXCOM G7 SENSOR) brady 9 Each 3 Sig: Apply new sensor every ten (10) days. Charlotte Gurrola, PharmD, BCACP Primary Care Clinical Pharmacist Patient asking message be sent to Charlotte: Reports she spoke with [facility] and they need Charlotte to send them a referral for the Dexcom G 7. Please phone patient with any questions. documented in this encounter [facility] 05-29-2022 History of Present illness Narrative Images from the original note were not included. Primary Care Pharmacy Visit CC (Reason for Consult): Diabetes Goal: A1c < 8% Collaborating Provider: Dr. Hunt Last Collaborating Physician/FAMILY SERVICES COORDINATOR Visit: 05/02/22 Christina Guerrier is a 66 [...] your physician GLYCEMIC CONTROL: - Share code: [id number] CGM Report Summary of CGM Findings: 1- [...] [place] Rx coverage: [employer] HMO Medicare + [facility] Affordability: no issues Diabetes supplies: [employer] Organization System: pill box ACTIVE PROBLEM LIST [...] (Hcc) Krueger's Palsy Coronary Artery Disease Involving [place] Coronary Artery of [place] Heart Without Angina Pectoris Stable Angina (Hcc) [...] hernia 12/30/2008 Liver replaced by transplant ([facility]) 2008 - Cirrhosis s/p OLT 2008 - Cirrhosis 04/05 [facility] Plan: - Continue Tacrolimus 1.5 mg BID - daily Tacrolimus levels - Continue Otezla 30 mg BID Lymphedema RAUL (obstructive sleep apnea) does not use CPAP Other and unspecified hyperlipidemia Other lymphedema runs in family PMH - PAST MEDICAL HISTORY OF 1998 endometrial cancer, had complete hysterectomy Psoriasis and similar disorders Mchenry [place] 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 Blood-Glucose Meter,Continuous (DEXCOM G6 HIP HOP ARTIST) [facility] [place] [place] Use to check blood sugar at least [...] with long-term current use of insulin ([facility]) - ICD9: 250.40, 791.0, V58.67, ICD10: E11.29, [...] Instructed patient to check with her DME ([facility]) on when she can [...] was 22 minutes. documented in this encounter [facility] 05-23-2022 Note [facility] 05-23-2022 Miscellaneous Notes Spoke to pt to let her know the orders have been placed for her evaluation and a plant hr manager should be contacting her within a week. I advised her to lose weight with her current BMI 42, she would not be able to be listed until 40. She said her ht is 5'6 not 5'4.5 . I said we would need to remeasure her as there are different hts in her chart documented in this encounter [facility] 05-23-2022 History of Present illness [...] HD started 10-19-20 Name of Dialysis Facility: [facility] Diabetes Yes. Diagnosed at age 52 [...] appointment Renetta Mendez RN Pre-Kidney & Pancreas Gastroenterology Manager [facility] documented in this encounter [facility] 05-17-2022 Note [facility] 05-16-2022 Miscellaneous Notes Patient has been identified [...] Litzy Esparza Pss documented in this encounter [facility] 05-14-2022 Note [facility] 05-14-2022 History of Present illness Narrative Images from the original note were not included. Primary Care Pharmacy Visit CC (Reason for Consult): Diabetes Goal: A1c < 8% Collaborating Provider: Dr. Hunt Last Collaborating Physician/FAMILY SERVICES COORDINATOR Visit: 05/02/22 Christina Guerrier is a 66 year old female presenting for follow up visit by telephone. Patient consents to pharmacy collaborative practice agreement. At last visit with MORTICIAN INVESTIGATOR on 05/02/22 the following changes were made: [...] Adherence: denies missed doses Pharmacy: [facility] Rx coverage: [employer] HMO Medicare + [facility] Affordability: no issues Diabetes supplies: [employer] Organization System: pill box ACTIVE PROBLEM LIST [...] (Hcc) Krueger's Palsy Coronary Artery Disease Involving [place] Coronary Artery of [place] Heart Without Angina Pectoris Stable Angina (Hcc) [...] hernia 12/30/2008 Liver replaced by transplant ([facility]) 2008 - 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 Plan: - Continue Tacrolimus 1.5 mg BID - daily Tacrolimus levels - Continue Otezla 30 mg BID Lymphedema RAUL (obstructive sleep apnea) does not use CPAP Other and unspecified hyperlipidemia Other lymphedema runs in family PMH - PAST MEDICAL HISTORY OF 1999 endometrial cancer, had complete hysterectomy Psoriasis and similar disorders 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 Blood-Glucose Meter,Continuous (DEXCOM G6 HIP HOP ARTIST) [facility] [place] [place] Use to check blood sugar at least [...] 41.60 kg/(m^2) LABS: ESRD on dialysis on [facility] Liver transplant list Lab Results Component [...] with long-term current use of insulin ([facility]) - ICD9: 250.40, 791.0, V58.67, ICD10: E11.29, [...] was 25 minutes. documented in this encounter [facility] 05-08-2022 Note [facility] 05-08-2022 History of Present illness Narrative Radiology [...] 2022 7:28 AM documented in this encounter [facility] 05-03-2022 Note [facility] 05-03-2022 History of Present illness Narrative This is a virtual visit using [employer] video visit. 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 Lagunas [facility] ESOPHAGOGASTRODUODENOSCOPY TRANSORAL DIAGNOSTIC 12/2009 [facility] Janneth ESOPHAGOGASTRODUODENOSCOPY TRANSORAL DIAGNOSTIC 12/2010 [facility] Janneth FISTULA HERNIA REPAIR HX 12/2008 [...] CA Stroke Father Ischemic Heart Disease Father [place] age 70s Diabetes Mother age 76 other [...] each sensor change. Blood-Glucose Meter,Continuous (DEXCOM G6 HIP HOP ARTIST) [facility] [place] [place] Use to check blood sugar at least [...] which included preparing to see the patient, [id number] patient care, completing clinical documentation, obtaining and/or reviewing separately obtained history, performing a medically appropriate examination, counseling and educating the patient/family/caregiver, and ordering medications, tests, or procedures. Yesica Us PA-C May 03, 2022 11:37 AM documented in this encounter [facility] 05-02-2022 Miscellaneous Notes done Amber Jones RN, BSN Post Liver Gastroenterology Manager Patient called she went to get labs Today and her labs are , requesting her Coordinator to Update the orders. documented in this encounter [facility] 05-02-2022 Note [facility] 05-02-2022 History of Present illness Narrative CC: [...] has had a decreased appetite. Went to [facility] ER last week from dialysis for left shoulder pain with negative xrays and unremarkable lab work. Still with diarrhea has not seen GI yet and colestipol is on back order. Will have this 1-2 times a day pure liquid and will take immodium if needed. Sometimes will get a sharp pain to her right nondenominational with moving her head that is only [...] W/COLLJ SPEC WHEN PFRMD 09/2011 Dr. Lagunas [facility] ESOPHAGOGASTRODUODENOSCOPY TRANSORAL DIAGNOSTIC 12/2009 [facility] Janneth ESOPHAGOGASTRODUODENOSCOPY TRANSORAL DIAGNOSTIC 12/2010 [facility] Janneth FISTULA HERNIA REPAIR HX 12/2008 [...] with long-term current use of insulin ([facility]) - Primary E11.29, R80.9, Z79.4^Disp: 6000 mL^Rfl: [...] 1 Each^Rfl: 3 Blood-Glucose Meter,Continuous (DEXCOM G6 HIP HOP ARTIST) misc^Use to check blood sugar at least [...] CA Stroke Father Ischemic Heart Disease Father [place] age 70s Diabetes Mother age 76 other [...] Aged Out DATA REVIEWED: Outside chart from [facility] reviewed. ASSESSMENT/PLAN: 1. [...] Silva Plasencia APRN.CNP documented in this encounter [facility] 04-24-2022 Miscellaneous Notes Called and spoke with patient regarding kidney transplant, intake completed, and to nurse coordinator for review. Haritha Chan Pre- transplant intake form Date: 04/24/2022 Spoke with: Patient : 1955 EMAIL: Haier Jonnie M/F: F Work Status: Not working; [...] Previous Transplant? Yes Date/Where at? 05/05/2008 at [facility] Nephrectomy? No Evaluation elsewhere? Listed? Yes at [facility]; No Kidney Biopsy? Liver Biopsy? No Yes - on txp at [facility] Cirrhosis? Hepatitis? HIV? Cancer? Yes - [place] before Txp No No Yes-1998 Uterus and Cervix; had full hysterectomy; No chemo or radiation Diabetes 1 or 2? 2 Age diagnosed? 2007 Insulin dependent? Yes Hypoglycemic unawareness? No Hypertension? CAD? [place]? CABG/STENTS? Yes No No Yes - Hrt Stents 3x - in 2021 at [facility]. Stress? Echo? Cath? Yes Yes Yes [...] office. Haritha Chan documented in this encounter [facility] 04-20-2022 Note [facility] 04-20-2022 History of Present illness Narrative INSIGHT [...] to speak with a social work steam engineer to help give you support for any [...] you up for automated weekly questionnaires through [employer]. This is an easy way for us [...] and End outreach. documented in this encounter [facility] 04-19-2022 Note [facility] 04-19-2022 History of Present illness Narrative INSIGHT CDM TELEPHONIC OUTREACH Provider Action/FYI: voicemail Contact made with patient: No - Left message Tierney my name is Roxie Palmer RN your Nurse Anesthesia Program Director from the [facility] I am calling today for your monthly check in. I am sorry I missed your call. I will reach out to you again tomorrow. Enter next patient outreach date using the Track Pt Outreach. End outreach. documented in this encounter [facility] 04-19-2022 Miscellaneous Notes Patient has [...] with long-term current use of insulin ([facility]) - Primary E11.29, R80.9, Z79.4 Date of last office visit in primary care: 09/07/2021 Please advise. Thank you. Beth Pedersen LPN documented in this encounter [facility] 03-19-2022 Miscellaneous Notes Patient has [...] Franci Quinn LPN documented in this encounter [facility] 02-22-2022 History of Present illness [...] to speak with a social work steam engineer to help give you support for any [...] you up for automated weekly questionnaires through [employer]. This is an easy way for us [...] Track Pt Outreach and End outreach. INSIGHT [facility] TELEPHONIC OUTREACH Provider Action/FYI: voicemail Contact made with patient: No - Left message Tierney my name is Roxie Palmer RN your Nurse Anesthesia Program Director from the [facility] I am calling today for your monthly check in. I am sorry I missed your call. I will reach out to you again tomorrow. Enter next patient outreach date for the following business day using the Track Pt Outreach. End outreach. documented in this encounter [facility] 02-09-2022 Miscellaneous Notes Patient went [...] Janelle Crocker RN documented in this encounter [facility] 02-05-2022 Miscellaneous Notes Patient came [...] calling: self Call patient at: on cell [phone] (home) [phone] (cell) Was an appointment scheduled: No Closing statement: Symptom Call: Thank you for calling [facility], your call is very important. A nurse will call in approximately 2-4 hours during business hours. If this is an emergency, please contact 911. 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 Lagunas [facility] ESOPHAGOGASTRODUODENOSCOPY TRANSORAL DIAGNOSTIC 12/2009 [facility] Janneth ESOPHAGOGASTRODUODENOSCOPY TRANSORAL DIAGNOSTIC 12/2010 [facility] Janneth FISTULA HERNIA REPAIR HX 12/2008 [...] CA Stroke Father Ischemic Heart Disease Father [place] age 70s Diabetes Mother age 76 other [...] G6 TRANSMITTER) brady Blood-Glucose Meter,Continuous (DEXCOM G6 HIP HOP ARTIST) misc Blood-Glucose Sensor (DEXCOM G6 SENSOR) brady [...] Jame Hunt MD documented in this encounter [facility] 02-01-2022 Miscellaneous Notes Pt notified [...] file. Please advise. documented in this encounter [facility] 01-29-2022 History of Present illness [...] tylenol and diclofenac gel without any help. [place] helps when pain is severe. 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 Lagunas [facility] ESOPHAGOGASTRODUODENOSCOPY TRANSORAL DIAGNOSTIC 12/2009 [facility] Janneth ESOPHAGOGASTRODUODENOSCOPY TRANSORAL DIAGNOSTIC 12/2010 [facility] Janneth FISTULA HERNIA REPAIR HX 12/2008 [...] with long-term current use of insulin ([facility]) - Primary E11.29, R80.9, Z79.4^Disp: ^Rfl: 0 [...] 1 Each^Rfl: 3 Blood-Glucose Meter,Continuous (DEXCOM G6 HIP HOP ARTIST) misc^Use to check blood sugar at least [...] CA Stroke Father Ischemic Heart Disease Father [place] age 70s Diabetes Mother age 76 other [...] Silva Plasencia APRN.CNP documented in this encounter [facility] 01-26-2022 History of Present illness Narrative INSIGHT CDM TELEPHONIC OUTREACH Provider Action/FYI: Cramping in her hands happens frequently-no difference in dialysis days or non-dialysis days Sometimes hard to pick up worker a jug of milk Using arthritis cream [...] to speak with a social work steam engineer to help give you support for any [...] you up for automated weekly questionnaires through [employer]. This is an easy way for us [...] and End outreach. documented in this encounter [facility] 01-24-2022 Miscellaneous Notes Patient called to request the medication again. Remedios--01/01/22 Nov--01/29/22 Last refill--10/20/21 60 with 2 refills Last labs--01/16/22 documented in this encounter [facility] 01-01-2022 History of Present illness Narrative INSIGHT CDM TELEPHONIC OUTREACH Provider Action/FYI: 2nd attempt, left another message Contact made with patient: No - Left message Helgeorge my name is Roxie Palmer RN your Nurse Anesthesia Program Director from the [facility] I am calling today for your monthly check in. I am sorry I missed your call. I will reach out to you again next month. End outreach. 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 No colitis. Poor rectal sphincter tone. Referred to Oriana Newberry. COLONOSCOPY FLX DX W/COLLJ SPEC WHEN PFRMD 11/29/2011 [facility] Main /Dr. Anderson COLONOSCOPY FLX DX W/COLLJ SPEC WHEN PFRMD 07/2011 Janneth COLONOSCOPY FLX DX W/COLLJ SPEC WHEN PFRMD 09/2011 Dr. Lagunas [facility] ESOPHAGOGASTRODUODENOSCOPY TRANSORAL DIAGNOSTIC 12/2009 [facility] Janneth ESOPHAGOGASTRODUODENOSCOPY TRANSORAL DIAGNOSTIC 12/2010 [facility] Janneth FISTULA HERNIA REPAIR HX 12/2008 [...] with long-term current use of insulin (FORMERLY [facility]) - Primary E11.29, R80.9, Z79.4^Disp: ^Rfl: 0 [...] 1 Each^Rfl: 3 Blood-Glucose Meter,Continuous (DEXCOM G6 HIP HOP ARTIST) [facility] [place] [place]^Use to check blood sugar at least four [...] CA Stroke Father Ischemic Heart Disease Father [place] age 70s Diabetes Mother age 76 other [...] Silva Plasencia APRN.CNP documented in this encounter [facility] 12-29-2021 History of Present illness Narrative INSIGHT CD TELEPHONIC OUTREACH Provider Action/FYI: voicemail Contact made with patient: No - Left message Hello my name is Roxie Palmer RN your Nurse Anesthesia Program Director from the [facility] I am calling today for your monthly check in. I am sorry I missed your call. I will reach out to you again tomorrow. Enter next patient outreach date for the following business day using the Track Pt Outreach. End outreach. documented in this encounter [facility] 12-13-2021 Miscellaneous Notes Patient notified [...] review for improvement. Thank you Silva Plasencia APRN.MORTICIAN INVESTIGATOR documented in this encounter [facility] 12-12-2021 Miscellaneous Notes Patient has [...] Nell Lemons LPN documented in this encounter [facility] 12-11-2021 History of Present illness Narrative CC: Patient presents with: Recheck: Hosp follow up hyperkalemia HPI Christina Guerrier is a 66 year old female who presents today for Hospital follow-up. Facility: [facility] Date of visit: [...] FLX DX W/COLLJ SPEC WHEN PFRMD 11/29/2011 [facility] Main /Dr. Anderson COLONOSCOPY FLX DX W/COLLJ SPEC WHEN PFRMD 07/2011 Janneth COLONOSCOPY FLX DX W/COLLJ SPEC WHEN PFRMD 09/2011 Dr. Lagunas [facility] ESOPHAGOGASTRODUODENOSCOPY TRANSORAL DIAGNOSTIC 12/2009 [facility] Janneth ESOPHAGOGASTRODUODENOSCOPY TRANSORAL DIAGNOSTIC 12/2010 [facility] Janneth FISTULA HERNIA REPAIR HX 12/2008 [...] with long-term current use of insulin ([facility]) - Primary E11.29, R80.9, Z79.4^Disp: ^Rfl: 0 [...] 1 Each^Rfl: 3 Blood-Glucose Meter,Continuous (DEXCOM G6 HIP HOP ARTIST) misc^Use to check blood sugar at least [...] CA Stroke Father Ischemic Heart Disease Father [place] age 70s Diabetes Mother age 76 other [...] Aged Out DATA REVIEWED: Outside chart from [facility] reviewed. ASSESSMENT/PLAN: 1. [...] with more than 50% of the total [id number] time of the visit in counseling / coordination of care. documented in this encounter [facility] 12-04-2021 History of Present illness Narrative INSIGHT CDM TELEPHONIC OUTREACH Provider Action/FYI: 2nd attempt, left another message Contact made with patient: No - Left message Tierney my name is Roxie Palmer RN your Nurse Anesthesia Program Director from the [facility] I am calling today for your bi-weekly check in. I am sorry I missed your call. I will reach out to you again tomorrow. (if the third call I will reach out to you again next week) Enter next patient outreach date for the following business day using the Track Pt Outreach. End outreach. documented in this encounter [facility] 12-01-2021 History of Present illness Narrative INSIGHT [facility] TELEPHONIC OUTREACH Provider Action/FYI: voicemail Contact made with patient: No - Left message Hello my name is Roxie Palmer RN your Nurse Anesthesia Program Director from the [facility] I am calling today for your bi-weekly check in. I am sorry I missed your call. I will reach out to you again tomorrow. (if the third call I will reach out to you again next week) Enter next patient outreach date for the following business day using the Track Pt Outreach. End outreach. documented in this encounter [facility] 11-07-2021 History of Present illness Narrative INSIGHT [facility] TELEPHONIC OUTREACH Provider Action/FYI: 2nd attempt No answer/voicemail not set up Unable to leave message Contact made with patient: No - Unable to leave message Entered next patient outreach date for the following business day, if third call please enter next outreach date for one week in the Track Pt. Outreach - End Outreach documented in this encounter [facility] 11-03-2021 History of Present illness Narrative INSIGHT [facility] TELEPHONIC OUTREACH Provider Action/FYI: No answer/voicemail not set up Contact made with patient: No - Unable to leave message Entered next patient outreach date for the following business day, if third call please enter next outreach date for one week in the Track Pt. Outreach - End Outreach documented in this encounter [facility] 11-02-2021 History of Present illness [...] on 10/12, lunchtime Novolog was increased. At MORTICIAN INVESTIGATOR visit on 10/20, patient seen for ear pain and vaginal/rectal bleeding, and on 10/22 patient hospitalized for GI bleed. Subjective: HPI: Patient reports she only has 1 Dexcom sensor left. She gets supplies through [facility]. States her Dexcom keeps [...] missed doses [facility] + [facility] Affordability: no issues Diabetes supplies: Common Sensing System: pill box ACTIVE PROBLEM LIST WOUND [...] (Hcc) Krueger's Palsy Coronary Artery Disease Involving Rampart Coronary Artery of [place]ampart Heart Without Angina Pectoris Stable Angina (Hcc) [...] Insulin: yes supplies Blood-Glucose Meter,Continuous (DEXCOM G6 HIP HOP ARTIST) [facility] [place] [place] Use to check blood sugar at least [...] with long-term current use of insulin ([facility]) - Primary E11.29, R80.9, Z79.4 insulin glargine [...] ALT 25 10/20/2021 ESRD on dialysis on [facility] Liver transplant list Lab Results Component [...] with long-term current use of insulin ([facility]) - ICD9: 250.40, 791.0, V58.67, ICD10: E11.29, [...] the dose of Novolog Advised to call [facility] to request refill of CGM sensors; phone number provided 2. Medication management - ICD9: V58.69, ICD10: Z79.899 Reviewed all medications, indications, dosing, frequency, administration with patient. Medication list updated as described above. Patient is scheduled to see MORTICIAN INVESTIGATOR on 01/04. Patient to have PharmD f/u on 12/07. Patient verbalized understanding of instructions. Kim La PharmD, [facility] Primary Care Clinical Pharmacist The majority of the pharmacy visit (> 50%) was spent counseling and/or coordinating care for the patient. interaction: telephonic time was 30 minutes. 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 Lagunas [facility] ESOPHAGOGASTRODUODENOSCOPY TRANSORAL DIAGNOSTIC 12/2009 [facility] Janneth ESOPHAGOGASTRODUODENOSCOPY TRANSORAL DIAGNOSTIC 12/2010 [facility] Janneth FISTULA HERNIA REPAIR HX 12/2008 [...] CA Stroke Father Ischemic Heart Disease Father [place] age 70s Diabetes Mother age 76 other [...] mouth once daily. Blood-Glucose Meter,Continuous (DEXCOM G6 HIP HOP ARTIST) misc Use to check blood sugar at [...] - Work up with Ultrasound transvaginal - [place] low residue diet - Treatment for constipation discussed RTO as needed to follow-up with PCP team. Prescription instructions reviewed with patient as applicable. Potential red flag symptoms discussed with the patient. Reviewed appropriate action plan to take if red flag symptoms occur. Patient agreeable to treatment plan. Jaci Lucero APRN.NATHALY [address] [place] [address] documented in this encounter [facility] 10-12-2021 History of Present illness [...] popcorn (white cheddar) Beverages: fluid restriction, usually Tripp Crush Zero, 1 can daily; chews ice MEDICATIONS: Pill bottles are not present Adherence: denies missed doses Pharmacy: [facility] Rx coverage: [employer] [facility] Medicare + [facility] Affordability: no issues Diabetes supplies: Common Sensing System: pill box ACTIVE PROBLEM LIST WOUND [...] (Hcc) Krueger's Palsy Coronary Artery Disease Involving Rampart Coronary Artery of [place]amp[place] Heart Without Angina Pectoris Stable Angina (Hcc) [...] CKD (chronic kidney disease) Dialysis M/W/F [facility] COPD (chronic obstructive pulmonary disease) (HCC) Diabetes [...] had complete hysterectomy Psoriasis and similar disorders Mchenry [place] 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 Splenomegaly ALLERGIES Allergen [...] hypoglycemia Insulin: yes Blood-Glucose Meter,Continuous (DEXCOM G6 HIP HOP ARTIST) [facility] [place] [place] Use to check blood sugar at least [...] with long-term current use of insulin ([facility]) - Primary E11.29, R80.9, Z79.4 insulin glargine [...] ALT 31 07/03/2021 ESRD on dialysis on [facility] Liver transplant list Lab Results Component [...] with long-term current use of insulin ([facility]) - ICD9: 250.40, 791.0, V58.67, ICD10: E11.29, [...] due now Patient is scheduled to see MORTICIAN INVESTIGATOR on 01/04. Patient to have PharmD f/u on 11/02. Patient verbalized understanding of instructions. Kim La PharmD, [facility] Primary Care Clinical Pharmacist The majority of the pharmacy visit (> 50%) was spent counseling and/or coordinating care for the patient. interaction: telephonic time was 28 minutes. documented in this encounter [facility] 10-09-2021 History of Present illness [...] to speak with a social work steam engineer to help give you support for any [...] you up for automated weekly questionnaires through [employer]. This is an easy way for us [...] and End outreach. documented in this encounter [facility] 09-28-2021 Miscellaneous Notes Patient stopped [...] to next PharmD visit. Kim La PharmD, [facility] Primary Care Clinical Pharmacist Cathryn LEA [facility] documented in this encounter [facility] 09-28-2021 History of Present illness [...] current concerns. 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 Lagunas [facility] ESOPHAGOGASTRODUODENOSCOPY TRANSORAL DIAGNOSTIC 12/2009 [facility] Janneth ESOPHAGOGASTRODUODENOSCOPY TRANSORAL DIAGNOSTIC 12/2010 [facility] Janneth FISTULA HERNIA REPAIR HX 12/2008 [...] each sensor change. Blood-Glucose Meter,Continuous (DEXCOM G6 HIP HOP ARTIST) [facility] [place] [place] Use to check blood sugar at least [...] CA Stroke Father Ischemic Heart Disease Father [place] age 70s Diabetes Mother age 76 other [...] Aged Out DATA REVIEWED: Outside chart from [facility] reviewed. ASSESSMENT/PLAN: 1. [...] Silva Plasencia APRN.CNP documented in this encounter [facility] 09-26-2021 Miscellaneous Notes REMEDIOS: 08/31/2021 Last refill: 04/19/2021 QTY: 60 Refills: 5 Patient's request for medication is as follows: Pending Prescriptions Disp Refills TRAZODONE 100 MG TABLET 60 tablet 5 Sig: Take 2 tablets by mouth daily at bedtime. JHON: No Please approve the above prescription(s) to electronically send to pharmacy. Jaden Yadav Ma documented in this encounter [facility] 09-21-2021 History of Present illness [...] TIME: 10:49 AM documented in this encounter [facility] 09-11-2021 Miscellaneous Notes Reason for [...] and will have family take her to [facility] ER Reason for Disposition Blood glucose > [...] N/A Protocols used: DIABETES - HIGH BLOOD [id number] documented in this encounter [facility] 09-11-2021 History of Present illness Narrative [facility] CDM Enrollment Provider Action/FYI: Returned call Patient referred by: [facility] Osei Contact made with patient: Yes - Patient identified by name and . Discussed care with patient Tierney this is Roxie Palmer RN and I am calling from Jame Hunt MD office at the [facility]. I am a RN Nurse Anesthesia Program Director with our [facility] Chronic Disease Management program. [...] few questions once a week through your [employer] account. It will automatically show up for [...] stressful. Can we connect you with a [facility] Health Freight Breaker to find a program that could help [...] Provider Action/FYI: ckd voicemail Patient referred by: [facility] Osei Contact made with patient: No - Left Message: Hi my name is Roxie Palmer RN and I am calling from the [facility] on behalf of your PCP, Jame Hunt MD. We are excited to share with you a new program to help you manage your health. Please call me back at [phone] between the hours of 8am-5pm Saturday-Saturday. You will receive another phone call from me within the next two business days. I hope you can take the time to speak with me. (Keep encounter open and attempt 2nd outreach in two business days from today) END OUTREACH documented in this encounter [facility] 09-07-2021 Miscellaneous Notes Images from the original note were not included. Approved Prior authorization approved Payer: [employer] [phone] EDUIN Case: [id number], Status: Approved, Coverage Starts on: 09/07/2021 1:53:39 PM, Coverage Ends on: 09/07/2021 1:53:39 PM. Questions? Contact . Approval Details Authorized from September 07, 2021 to September 07, 2021 Electronic PA completed for insulin aspart unit(s) 100(novolog U100 insulin aspart) documented in this encounter [facility] 09-07-2021 Miscellaneous Notes Noted. The following approved medication requests have been transmitted electronically. Signed Prescriptions Disp Refills insulin aspart U-100 (NOVOLOG U-100 INSULIN ASPART) 100 unit/mL 6 Vial 3 Sig: Inject 22 Units subcutaneously three times daily before meals. Type 2 diabetes mellitus with microalbuminuria, with long-term current use of insulin ([facility]) - Primary E11.29, R80.9, Z79.4 JHON: No Authorizing Provider: JAME HUNT Ordering User: KIM LA RPh [facility] pharmacy calling with request for new script for Novolog Insulin with diagnosis code on script for Medicare billing. Amadeo Mar RN documented in this encounter [facility] 09-07-2021 History of Present illness [...] for cellulitis on right leg. At last MORTICIAN INVESTIGATOR appt, cellulitis appeared to be resolved but [...] [facility] Rx coverage: [employer] H[employer] Medicare + [facility] Affordability: no issues Diabetes supplies: Common Sensing System: pill box ACTIVE PROBLEM LIST WOUND [...] (Hcc) Krueger's Palsy Coronary Artery Disease Involving Rampart Coronary Artery of Rampart Heart Without Angina Pectoris Stable Angina (Hcc) [...] CKD (chronic kidney disease) Dialysis M/W/F [facility] COPD (chronic obstructive pulmonary disease) (HCC) Diabetes [...] had complete hysterectomy Psoriasis and similar disorders [place]henry [place] 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 Patient is scheduled to see MORTICIAN INVESTIGATOR on 09/28. Patient to have PharmD f/u on 10/12. Patient verbalized understanding of instructions. Kim La PharmD, [facility] Primary Care Clinical Pharmacist Julia [facility]G [facility] The majority of the pharmacy visit (> 50%) was spent counseling and/or coordinating care for the patient. interaction: face to face time was 28 minutes. documented in this encounter [facility] 09-06-2021 Miscellaneous Notes Pt called [...] Janelle Crocker RN documented in this encounter [facility] 09-06-2021 Miscellaneous Notes [employer] message sent to patient. It seems like [...] of office today. Patient phone number is [phone]. Please advise 09/05/2021 8:05 AM - Radiology, Oru In Impression IMPRESSION: Nonspecific intramuscular hypoechoic lesion. Possibly, this is an organizing hematoma and correlation to any history of recent trauma is suggested. Either follow-up examinations or MRI could be considered for further assessment. Roadmaster: BRET Transcribe Date/Time: Sep 05 2021 8:02A [...] some internal fluid. 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 No colitis. Poor rectal sphincter tone. Referred to Oriana Newberry. COLONOSCOPY FLX DX W/COLLJ SPEC WHEN PFRMD 11/29/2011 [facility] Main /Dr. Anderson COLONOSCOPY FLX DX W/COLLJ SPEC WHEN PFRMD 07/2011 Janneth COLONOSCOPY FLX DX W/COLLJ SPEC WHEN PFRMD 09/2011 Dr. Lagunas [facility] ESOPHAGOGASTRODUODENOSCOPY TRANSORAL DIAGNOSTIC 12/2009 [facility] Janneth ESOPHAGOGASTRODUODENOSCOPY TRANSORAL DIAGNOSTIC 12/2010 [facility] Janneth FISTULA HERNIA REPAIR HX 12/2008 [...] each sensor change. 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 Plan: - Continue Tacrolimus 1.5 mg BID - daily Tacrolimus levels - Continue Otezla 30 mg BID Lymphedema RAUL (obstructive sleep apnea) does not use CPAP Other and unspecified hyperlipidemia Other lymphedema runs in family PMH - PAST MEDICAL HISTORY OF 1998 endometrial cancer, had complete hysterectomy Psoriasis and similar disorders [place]hen[place] 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 No colitis. Poor rectal sphincter tone. Referred to [facility]ana Newberry. COLONOSCOPY FLX DX W/COLLJ SPEC WHEN PFRMD 11/29/2011 [facility] Main /Dr. Anderson COLONOSCOPY FLX DX W/COLLJ SPEC WHEN PFRMD 07/2011 Jann[facility] COLONOSCOPY FLX DX W/COLLJ SPEC WHEN PFRMD 09/2011 Dr. Lagunas [facility] ESOPHAGOGASTRODUODENOSCOPY TRANSORAL DIAGNOSTIC 12/2009 [facility] Janneth ESOPHAGOGASTRODUODENOSCOPY TRANSORAL DIAGNOSTIC 12/2010 [facility] Janneth FISTULA HERNIA REPAIR HX 12/2008 [...] each sensor change. Blood-Glucose Meter,Continuous (DEXCOM G6 HIP HOP ARTIST) [facility] [place] [place] Use to check blood sugar at least [...] CA Stroke Father Ischemic Heart Disease Father [place] age 70s Diabetes Mother age 76 other [...] Silva Plasencia APRN.CNP documented in this encounter [facility] 08-21-2021 History of Present illness Narrative POPULATION HEALTH NAVIGATION OUTREACH Action/I Patient Outreach: Ada Support - Spoke with patient to schedule [...] Care Gap or Scheduling/Wellness visits Payer: Payor: [employer] MEDICARE / Plan: Spyra PLUS / Product Type: HMO / Care Gap Reviewed:: Follow-up appointment Reminder: Reminder note to check Health Maintenance for items below Health Maintenance items due: SHINGRIX VACCINE(1 of 2) Never done PAP TESTING due on 03/05/2020 Message Sent to Practice: No Navigation Signature: Haritha Cary August 21, 2021 5:00 PM documented in this encounter [facility] 08-14-2021 Miscellaneous Notes forms completed and faxed on 08/09/2021. Franci Quinn LPN Forms received and placed papers on providers desk. Franci Quinn LPN [place] noted. Jasmina from [facility] calling she will be faxing Power chair forms back to office with on cover sheet what needs to be fixed on the forms. Please advise documented in this encounter [facility] 08-14-2021 History of Present illness [...] evening of Saturday she did go to [facility], her covid and flu was [...] Anemia in stage 4 chronic kidney disease ([facility]) 12/17/2016 Anemia of chronic kidney failure, stage 4 (severe) ([facility] 12/11/2016 Anxiety Arthritis Krueger's palsy CAD (coronary artery disease) Cancer (HCC) uterine and cervical Celiac disease 2007 Cellulitis of back except buttock Cirrhosis of liver without mention of alcohol CKD (chronic kidney disease) Dialysis M/W/F [facility] COPD (chronic obstructive pulmonary disease) ([facility]) Diabetes mellitus without mention of complication Diabetic polyneuropathy ([facility]) 02/04/2017 Disorder of thyroid DVT (deep venous thrombosis) ([facility]) Esophageal reflux Hammer toes, bilateral 11/30/2016 History of transfusion Hypertension Incisional hernia 12/30/2008 Liver replaced by transplant ([facility]) 2008 - Cirrhosis s/p OLT 2008 - [...] W/COLLJ SPEC WHEN PFRMD 09/2011 Dr. Lagunas [facility] ESOPHAGOGASTRODUODENOSCOPY TRANSORAL DIAGNOSTIC 12/2009 [facility] Janneth ESOPHAGOGASTRODUODENOSCOPY TRANSORAL DIAGNOSTIC 12/2010 [facility] Janneth FISTULA HERNIA REPAIR HX 12/2008 [...] CA Stroke Father Ischemic Heart Disease Father [place] age 70s Diabetes Mother age 76 other [...] G6 TRANSMITTER) brady Blood-Glucose Meter,Continuous (DEXCOM G6 HIP HOP ARTIST) misc Blood-Glucose Sensor (DEXCOM G6 SENSOR) brady [...] Jame Hunt MD documented in this encounter [facility] 08-09-2021 Miscellaneous Notes Form completed and faxed. Franci Quinn LPN I addeded ,my notes please addend your office note per Charlotte , see below Noted. Thank you for all of your help with this. Thank you Silva Plasencia APRN.MORTICIAN INVESTIGATOR Thanks for reaching out to patient Franci. Dr. Hunt, can you please addend your last office visit note with the information below from patient. Thanks, Charlotte Gurrola PharmD, BCACP Primary Care Clinical Pharmacist [facility] Patient takes insulin: Novolog unit(s)-100 3 [...] Gurrola PharmD, BCACP Primary Care Clinical Pharmacist [facility] Patient is interested in getting the [place] and may need a follow up appointment. Please advise documented in this encounter [facility] 08-03-2021 Miscellaneous Notes Pt would like these medications reordered. Correct pharmacy verified on order. Pending Prescriptions Disp Refills ASPIRIN 81 MG CHEWABLE TABLET Sig: Take 4 tablets by mouth once daily. JHON: No documented in this encounter [facility] 07-24-2021 History of Present illness Narrative Charbel Esparza MD Department of Orthopaedics Orthopaedics [address] [facility] [address] Dept: [phone] Dept July 24, 2021 Consultation requested by [...] IMPRESSION: Osteoarthrosis. No evidence of inflammatory arthropathy. 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 Plan: - Continue Tacrolimus 1.5 mg BID - daily Tacrolimus levels - Continue Otezla 30 mg BID Lymphedema RAUL (obstructive sleep apnea) does not use CPAP Other and unspecified hyperlipidemia Other lymphedema runs in family PMH - PAST MEDICAL HISTORY OF 1999 endometrial cancer, had complete hysterectomy Psoriasis and similar disorders [place] 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 No colitis. Poor rectal sphincter tone. Referred to [facility]. COLONOSCOPY FLX DX W/COLLJ SPEC WHEN PFRMD 11/29/2011 [facility] Main /Dr. Anderson COLONOSCOPY FLX DX W/COLLJ SPEC WHEN PFRMD 07/2011 Janneth COLONOSCOPY FLX DX W/COLLJ SPEC WHEN PFRMD 09/2011 Dr. Lagunas [facility] ESOPHAGOGASTRODUODENOSCOPY TRANSORAL DIAGNOSTIC 12/2009 [facility] Janneth ESOPHAGOGASTRODUODENOSCOPY TRANSORAL DIAGNOSTIC 12/2010 [facility] Janneth FISTULA HERNIA REPAIR HX 12/2008 [...] CA Stroke Father Ischemic Heart Disease Father [place] age 70s Diabetes Mother age 76 other [...] mg by mouth once daily. Blood-Glucose Transmitter (DocVerseCOM G6 TRANSMITTER) brady Apply new transmitter every 90 days. Clean transmitter with an alcohol swab with each sensor change. Blood-Glucose Meter,Continuous (DEXCOM G6 HIP HOP ARTIST) [facility] [place] [place] Use to check blood sugar at least four (4) times daily. Blood-Glucose Sensor (DocVerseCOM G6 SENSOR) brady Apply new sensor every [...] mail or electronic medical record. Josse Lance [address] [facility] [address] Jame Hunt MD [address] [facility] [address] Charbel Esparza MD documented in this encounter [facility] 07-21-2021 Miscellaneous Notes Patient calling [...] chair. Please advise documented in this encounter [facility] 07-13-2021 Miscellaneous Notes Patient notified that prescription was sent to the pharmacy and verbalized understanding. [facility] and [facility]. All prescriptions have been APPROPRIATELY filled. No suspicious activity was identified. 07/13/2021 by Josse Lance APRN.CHILD AND ADOLESCENT PSYCHOLOGIST Patient called to check on her request for medication; does not see Ortho until 07/27/21. Please send to [facility] [place]; added to file. Please call her today. Patient said Josse Lance referred her to ortho for wrist pain. Patient can't get in until 07/27/21. Wants to know if she can have a refill of [place] or another rx for the pain. Please advise at [phone]. documented in this encounter [facility] 07-13-2021 Miscellaneous Notes PharmD printed [...] Once completed, will plan to fax to [facility] Medical. Kim La PharmD, [facility] Primary Care Clinical Pharmacist Julia Gu [facility] documented in this encounter [facility] 07-12-2021 Miscellaneous Notes I called [employer] today at the number provided below. Spoke with a very helpful service liaison representative named Lokesh who said the order needs to be submitted through medical benefit to [employer]. PharmNichole will plan to resubmit paperwork tomorrow. No letter or fax. I called the per PA response [employer] at [phone] PharmNichole spoke with patient (can see MyC [...] insurance should cover Dexcom if sent through [employer]. Will await patient response. Kim La PharmD, [facility] Primary Care Clinical Pharmacist Julia Gu [facility] Called number and the PA needs to come from the pharmacy. They are asking for code DME H. The Dr office does not have this code. This call reference number is [id number]. [facility] to [facility] and pharmacist doesn't have this info either. He doesn't believe this would be covered.What about a guy ho? Images from the original note were not included. Per jose antonio PA response. Per [employer] for dexcom transmitter. PER the pharmacy this needs to have Prior Authorization thru her medical insurance not a covered benefit. documented in this encounter [facility] 07-12-2021 Miscellaneous Notes PharmD called [employer] ([phone]) and spoke with service liaison representative, Lokesh. Sees that authorization was submitted on July 10 and it is pending. He reported the authorization was submitted incorrectly as pharmacy benefit instead of a medical benefit. He said application needs to be submitted through [facility] [employer] (contact number provided: ). PharmD will plan to resubmit application through [facility] [employer] tomorrow when in the [place] office. Kim La PharmD, [facility] Primary Care Clinical Pharmacist Cathryn LEA [facility] documented in this encounter [facility] 07-09-2021 Miscellaneous Notes Patient is [...] with current treatment. 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 Stable Angina (Hcc) [...] stage 4 (severe) (HCC) 12/11/2016 Anxiety Arthritis Kruegre's palsy CAD (coronary artery disease) Cancer (HCC) uterine and cervical Celiac disease 2007 Cellulitis of back except buttock Cirrhosis of liver without mention of alcohol CKD (chronic kidney disease) Dialysis M/W/F [facility] COPD (chronic obstructive pulmonary disease) ([facility] Diabetes mellitus without mention of complication Diabetic polyneuropathy ([facility]) 02/04/2017 Disorder of thyroid DVT (deep venous thrombosis) ([facility]) Esophageal reflux Hammer toes, bilateral 11/30/2016 History of transfusion Hypertension Incisional hernia 12/30/2008 Liver replaced by transplant ([facility]) 2008 - Cirrhosis s/p OLT 2008 - [...] Lymph 1.00 - 4.00 k/uL 0.45 (L) Blaine% % 6.5 Abs Blaine <0.87 k/uL 0.23 Eosin% % 2.5 Abs [...] also on dialysis.. She notes relief with Oedtte wrap so would continue with that. X-ray today. Labs to check for inflammatory process. Schedule with orthopedic provider for further evaluation, recommendations and treatment. Josse Lance APRN.CHILD AND ADOLESCENT PSYCHOLOGIST Medical Decision Making: Problems: Moderate: 2+ stable chronic illnesses Data: Unique test(s) ordered: 3+ Risk: Moderate: Drug management Medical Decision Making Level: 4 - Moderate documented in this encounter [facility] 07-03-2021 Miscellaneous Notes Did we ever receive the fax that [facility] said they were sending over? Noted. Please le us know if you need anything from PCP. Thank you Silva Plasencia APRN.CNP Noted, once fax is received place document it and place on PharmD's desk. Thanks! Kim La PharmD, [facility] Primary Care Clinical Pharmacist Julia Gu [facility] Rossana @ [employer] calling to let PCP know she is faxing a new order form for Dexcom G6 System. She states the original order was incomplete. Amadeo Mar, RN documented in this encounter [facility] 06-13-2021 Miscellaneous Notes Tonya from [facility] calling asking for paper work to be faxed to [phone]. Found paper work and faxed as requested. Current paperwork and orders sent to [facility]. We will await response. Franci Quinn LPN Franci. Do we have the paper work we sent to the [facility] people? How do I order for this? dont we get a form that we need to fill? Christina Guerrier is calling Jame Hunt MD today to request an order for a motorized scooter. Patient said this has been requested before but sent to [facility] who did not have the scooter in stock. Patient asking if an order can be faxed to [facility]. Please fax order to [phone]. Patient asking tor a return call.No chief complaint on file. Patient has been identified by name and birthdate. Duration of symptoms: N/A Person calling: self Call patient at: on cell [phone] (home) [phone] (cell) Was an appointment scheduled: No Closing statement: Results or non-symptom based questions: Thank you for calling [facility], your call will be returned within the next business day. Veronica Richard documented in this encounter [facility] 06-08-2021 Miscellaneous Notes Script for [...] Amadeo Mar RN documented in this encounter [facility] 06-08-2021 Miscellaneous Notes PharmD completed [employer] CMN form. PCP signed form and chart note and faxed to [facility] today. Kim La PharmD, [facility] Primary Care Clinical Pharmacist Julia Gu [facility] documented in this encounter [facility] 06-08-2021 History of Present illness [...] a protein shake) Beverages are limited. 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 Kim La PharmD, [facility] Primary Care Clinical Pharmacist Julia Gu [facility] The majority of the pharmacy visit (> 50%) was spent counseling and/or coordinating care for the patient. interaction: face to face time was 55 minutes. documented in this encounter [facility] 06-08-2021 Instructions Kim La RPh - 06/08/2021 3:00 PM EDT INCREASE Lantus to 50 units twice daily INCREASE Novolog to 17 units with meals Continue monitoring your blood sugars. PharmD will work on getting order submitted for continuous glucose monitor. Contact PharmD if any issues with low blood sugars. documented in this encounter [facility] 06-08-2021 Miscellaneous Notes Addended by: KIM LA on: 06/08/2021 04:09 PM Modules accepted: Orders documented in this encounter [facility] 06-02-2021 Miscellaneous Notes This was faxed 03/29/21. Will refax today 06/02. Patient is calling in today still waiting on scooter. Keny is still waiting on the actual order for this. Keny phone number is [phone] If you can please send an order [...] work rec'd from the office from whatever [employer] company pt is using for this. Please set the prior auth in motion Patient reports [employer] tells her pcp needs to do a PA for the electric scooter. Prior Authorization Documentation Prior authorization requested for the following medication: Medication: Electric Scooter Provider: [employer] Company Name: [employer] Phone number: [phone] Patient ID number: [id number] Pharmacy Name: [facility] is [facility] them - will not get more until August or September Pharmacy Telephone number: Will find out from [employer] where can get one from. Patient also wants pcp to know she had heart cath done on , and will need triple bypass. Patient reports she spoke with surgeon yesterday- and surgeon will call her next at 8:30 am to let her know. 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 12/07/2016 0 11/29/2020 Last [...] of this encounter (statuses as of 06/08/2021) [facility] History of Past illness Narrative* [...] of this encounter (statuses as of 06/08/2021) [facility] of Past illness Narrative* [...] of this encounter (statuses as of 06/09/2021) [facility] of [facility] Narrative* Problem Noted Date Resolved Date Acute renal failure superimp osed on stage 4 chronic kidney disease 01/02/2020 11/29/2020 Shortness of breath 11/23/2019 11/29/2020 Meralgia paresthetica of right side 02/20/2018 06/09/2018 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 12/07/2016 0 11/29/2020 Last [...] of this encounter (statuses as of 06/13/2021) [facility] of [facility] illness Narrative* Problem Noted Date Resolved Date Acute renal failure superimp osed on stage 4 chronic kidney disease 01/02/2020 11/29/2020 Shortness of breath 11/23/2019 11/29/2020 Meralgia paresthetica of right side 02/20/2018 06/09/2018 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 12/07/2016 0 11/29/2020 Last [...] of this encounter (statuses as of 06/15/2021) [facility] of [facility] Narrative* Problem Noted Date Resolved Date Acute renal failure superimp osed on stage 4 chronic kidney disease 01/02/2020 11/29/2020 Shortness of breath 11/23/2019 11/29/2020 Meralgia paresthetica of right side 02/20/2018 06/09/2018 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 12/07/2016 0 11/29/2020 Last [...] of this encounter (statuses as of 06/29/2021) [facility] of [facility] Narrative* Problem Noted Date Resolved Date Acute renal failure superimp osed on stage 4 chronic kidney disease 01/02/2020 11/29/2020 Shortness of breath 11/23/2019 11/29/2020 Meralgia paresthetica of right side 02/20/2018 06/09/2018 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 12/07/2016 0 11/29/2020 Last [...] of this encounter (statuses as of 07/03/2021) [facility] Narrative* [...] of this encounter (statuses as of 07/09/2021) [facility] Narrative* Problem Noted Date Resolved Date Acute renal failure superimp osed on stage 4 chronic kidney disease 01/02/2020 11/29/2020 Shortness of breath 11/23/2019 11/29/2020 Meralgia paresthetica of right side 02/20/2018 06/09/2018 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 12/07/2016 0 11/29/2020 Last [...] of this encounter (statuses as of 07/11/2021) [facility] Narrative* Problem Noted Date Resolved Date Acute renal failure superimp osed on stage 4 chronic kidney disease 01/02/2020 11/29/2020 Shortness of breath 11/23/2019 11/29/2020 Meralgia paresthetica of right side 02/20/2018 06/09/2018 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 12/07/2016 0 11/29/2020 Last [...] of this encounter (statuses as of 07/12/2021) [facility] Narrative* Problem Noted Date Resolved Date Acute renal failure superimp osed on stage 4 chronic kidney disease 01/02/2020 11/29/2020 Shortness of breath 11/23/2019 11/29/2020 Meralgia paresthetica of right side 02/20/2018 06/09/2018 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 12/07/2016 0 11/29/2020 Last [...] of this encounter (statuses as of 07/13/2021) [facility] N[facility]ative* [...] of this encounter (statuses as of 07/13/2021) [facility] Narrative* [...] of this encounter (statuses as of 07/14/2021) [facility] N[facility]ative* Problem Noted Date Resolved Date Acute renal failure superimp osed on stage 4 chronic kidney disease 01/02/2020 11/29/2020 Shortness of breath 11/23/2019 11/29/2020 Meralgia paresthetica of right side 02/20/2018 06/09/2018 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 12/07/2016 0 11/29/2020 Last [...] of this encounter (statuses as of 08/03/2021) [facility] N[facility]* Problem Noted Date Resolved Date Acute renal failure superimp osed on stage 4 chronic kidney disease 01/02/2020 11/29/2020 Shortness of breath 11/23/2019 11/29/2020 Meralgia paresthetica of right side 02/20/2018 06/09/2018 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 12/07/2016 0 11/29/2020 Last [...] of this encounter (statuses as of 08/08/2021) [facility] N[facility]* Problem Noted Date Resolved Date Acute renal failure superimp osed on stage 4 chronic kidney disease 01/02/2020 11/29/2020 Shortness of breath 11/23/2019 11/29/2020 Meralgia paresthetica of right side 02/20/2018 06/09/2018 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 12/07/2016 0 11/29/2020 Last [...] of this encounter (statuses as of 08/09/2021) [facility] N[facility]* [...] of this encounter (statuses as of 08/10/2021) [facility] N[facility]* Problem Noted Date Resolved Date Acute renal failure superimp osed on stage 4 chronic kidney disease 01/02/2020 11/29/2020 Shortness of breath 11/23/2019 11/29/2020 Meralgia paresthetica of right side 02/20/2018 06/09/2018 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 12/07/2016 0 11/29/2020 Last [...] of this encounter (statuses as of 08/14/2021) [facility]* [...] of this encounter (statuses as of 08/14/2021) [facility]ative* [...] of this encounter (statuses as of 08/21/2021) [facility] N[facility]* Problem Noted Date Resolved Date Acute renal failure superimp osed on stage 4 chronic kidney disease 01/02/2020 11/29/2020 Shortness of breath 11/23/2019 11/29/2020 Meralgia paresthetica of right side 02/20/2018 06/09/2018 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 12/07/2016 0 11/29/2020 Last [...] of this encounter (statuses as of 08/25/2021) [facility] N[facility]* Problem Noted Date Resolved Date Acute renal failure superimp osed on stage 4 chronic kidney disease 01/02/2020 11/29/2020 Shortness of breath 11/23/2019 11/29/2020 Meralgia paresthetica of right side 02/20/2018 06/09/2018 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 12/07/2016 0 11/29/2020 Last [...] of this encounter (statuses as of 08/31/2021) [facility]* [...] of this encounter (statuses as of 09/06/2021) [facility] N[facility]* Problem Noted Date Resolved Date Acute renal failure superimp osed on stage 4 chronic kidney disease 01/02/2020 11/29/2020 Shortness of breath 11/23/2019 11/29/2020 Meralgia paresthetica of right side 02/20/2018 06/09/2018 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 12/07/2016 0 11/29/2020 Last [...] of this encounter (statuses as of 09/06/2021) [facility] N[facility]* Problem Noted Date Resolved Date Acute renal failure superimp osed on stage 4 chronic kidney disease 01/02/2020 11/29/2020 Shortness of breath 11/23/2019 11/29/2020 Meralgia paresthetica of right side 02/20/2018 06/09/2018 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 12/07/2016 0 11/29/2020 Last [...] of this encounter (statuses as of 09/07/2021) [facility] History of Past illness Narrative* [...] of this encounter (statuses as of 09/07/2021) [facility] History of Past illness Narrative* Problem Noted Date Resolved Date Acute renal failure superimp osed on stage 4 chronic kidney disease 01/02/2020 11/29/2020 Shortness of breath 11/23/2019 11/29/2020 Meralgia paresthetica of right side 02/20/2018 06/09/2018 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 12/07/2016 0 11/29/2020 Last [...] of this encounter (statuses as of 09/07/2021) [facility] History of Past illness Narrative* Problem Noted Date Resolved Date Acute renal failure superimp osed on stage 4 chronic kidney disease 01/02/2020 11/29/2020 Shortness of breath 11/23/2019 11/29/2020 Meralgia paresthetica of right side 02/20/2018 06/09/2018 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 12/07/2016 0 11/29/2020 Last [...] of this encounter (statuses as of 09/11/2021) [facility] Past illness Narrative* Problem Noted Date Resolved Date Acute renal failure superimp osed on stage 4 chronic kidney disease 01/02/2020 11/29/2020 Shortness of breath 11/23/2019 11/29/2020 Meralgia paresthetica of right side 02/20/2018 06/09/2018 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 12/07/2016 0 11/29/2020 Last [...] of this encounter (statuses as of 09/12/2021) [facility] of Past illness Narrative* Problem Noted Date Resolved Date Acute renal failure superimp osed on stage 4 chronic kidney disease 01/02/2020 11/29/2020 Shortness of breath 11/23/2019 11/29/2020 Meralgia paresthetica of right side 02/20/2018 06/09/2018 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 12/07/2016 0 11/29/2020 Last [...] of this encounter (statuses as of 09/22/2021) [facility] Narrative* [...] of this encounter (statuses as of 09/26/2021) [facility]arrative* [...] of this encounter (statuses as of 09/27/2021) [facility] Past [facility] Narrative* Problem Noted Date Resolved Date Acute renal failure superimp osed on stage 4 chronic kidney disease 01/02/2020 11/29/2020 Shortness of breath 11/23/2019 11/29/2020 Meralgia paresthetica of right side 02/20/2018 06/09/2018 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 12/07/2016 0 11/29/2020 Last [...] of this encounter (statuses as of 09/28/2021) [facility] Past [facility] Narrative* Problem Noted Date Resolved Date Acute renal failure superimp osed on stage 4 chronic kidney disease 01/02/2020 11/29/2020 Shortness of breath 11/23/2019 11/29/2020 Meralgia paresthetica of right side 02/20/2018 06/09/2018 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 12/07/2016 0 11/29/2020 Last [...] of this encounter (statuses as of 09/28/2021) [facility] Narrative* Problem Noted Date Resolved Date Acute renal failure superimp osed on stage 4 chronic kidney disease 01/02/2020 11/29/2020 Shortness of breath 11/23/2019 11/29/2020 Meralgia paresthetica of right side 02/20/2018 06/09/2018 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 12/07/2016 0 11/29/2020 Last [...] of this encounter (statuses as of 10/09/2021) [facility]arrative* [...] of this encounter (statuses as of 10/12/2021) [facility] Past [facility] Narrative* Problem Noted Date Resolved Date Acute renal failure superimp osed on stage 4 chronic kidney disease 01/02/2020 11/29/2020 Shortness of breath 11/23/2019 11/29/2020 Meralgia paresthetica of right side 02/20/2018 06/09/2018 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 12/07/2016 0 11/29/2020 Last [...] of this encounter (statuses as of 10/20/2021) [facility]arrative* [...] of this encounter (statuses as of 10/20/2021) [facility] Past [facility] Narrative* Problem Noted Date Resolved Date Acute renal failure superimp osed on stage 4 chronic kidney disease 01/02/2020 11/29/2020 Shortness of breath 11/23/2019 11/29/2020 Meralgia paresthetica of right side 02/20/2018 06/09/2018 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 12/07/2016 0 11/29/2020 Last [...] of this encounter (statuses as of 10/21/2021) [facility]ative* [...] of this encounter (statuses as of 10/23/2021) [facility]ative* [...] of this encounter (statuses as of 11/02/2021) [facility]arrative* Problem Noted Date Resolved Date Acute renal failure superimp osed on stage 4 chronic kidney disease 01/02/2020 11/29/2020 Shortness of breath 11/23/2019 11/29/2020 Meralgia paresthetica of right side 02/20/2018 06/09/2018 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 12/07/2016 0 11/29/2020 Last [...] of this encounter (statuses as of 11/07/2021) [facility]ative* [...] of this encounter (statuses as of 11/15/2021) [facility]ative* [...] of this encounter (statuses as of 11/27/2021) [facility]arrative* [...] of this encounter (statuses as of 12/04/2021) [facility] Past illness Narrative* Problem Noted Date Resolved Date Acute renal failure superimp osed on stage 4 chronic kidney disease 01/02/2020 11/29/2020 Shortness of breath 11/23/2019 11/29/2020 Meralgia paresthetica of right side 02/20/2018 06/09/2018 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 12/07/2016 0 11/29/2020 Last [...] of this encounter (statuses as of 12/11/2021) [facility] Past illness Narrative* Problem Noted Date Resolved Date Acute renal failure superimp osed on stage 4 chronic kidney disease 01/02/2020 11/29/2020 Shortness of breath 11/23/2019 11/29/2020 Meralgia paresthetica of right side 02/20/2018 06/09/2018 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 12/07/2016 0 11/29/2020 Last [...] of this encounter (statuses as of 12/12/2021) [facility]arrative* [...] of this encounter (statuses as of 12/13/2021) [facility] illness Narrative* [...] of this encounter (statuses as of 01/01/2022) [facility] of Past illness Narrative* Problem Noted Date Resolved Date Acute renal failure superimp osed on stage 4 chronic kidney disease 01/02/2020 11/29/2020 Shortness of breath 11/23/2019 11/29/2020 Meralgia paresthetica of right side 02/20/2018 06/09/2018 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 12/07/2016 0 11/29/2020 Last [...] of this encounter (statuses as of 01/01/2022) [facility] Past illness Narrative* [...] of this encounter (statuses as of 01/01/2022) [facility] Past illness Narrative* Problem Noted Date Resolved Date Acute renal failure superimp osed on stage 4 chronic kidney disease 01/02/2020 11/29/2020 Shortness of breath 11/23/2019 11/29/2020 Meralgia paresthetica of right side 02/20/2018 06/09/2018 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 12/07/2016 0 11/29/2020 Last [...] of this encounter (statuses as of 01/19/2022) [facility] Past illness Narrative* Problem Noted Date Resolved Date Acute renal failure superimp osed on stage 4 chronic kidney disease 01/02/2020 11/29/2020 Shortness of breath 11/23/2019 11/29/2020 Meralgia paresthetica of right side 02/20/2018 06/09/2018 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 12/07/2016 0 11/29/2020 Last [...] of this encounter (statuses as of 01/24/2022) [facility] Past illness Narrative* Problem Noted Date Resolved Date Acute renal failure superimp osed on stage 4 chronic kidney disease 01/02/2020 11/29/2020 Shortness of breath 11/23/2019 11/29/2020 Meralgia paresthetica of right side 02/20/2018 06/09/2018 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 12/07/2016 0 11/29/2020 Last [...] of this encounter (statuses as of 01/26/2022) [facility] Past [facility] Narrative* Problem Noted Date Resolved Date Acute renal failure superimp osed on stage 4 chronic kidney disease 01/02/2020 11/29/2020 Shortness of breath 11/23/2019 11/29/2020 Meralgia paresthetica of right side 02/20/2018 06/09/2018 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 12/07/2016 0 11/29/2020 Last [...] of this encounter (statuses as of 01/29/2022) [facility] Past illness Narrative* Problem Noted Date Resolved Date Acute renal failure superimp osed on stage 4 chronic kidney disease 01/02/2020 11/29/2020 Shortness of breath 11/23/2019 11/29/2020 Meralgia paresthetica of right side 02/20/2018 06/09/2018 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 12/07/2016 0 11/29/2020 Last [...] of this encounter (statuses as of 02/01/2022) [facility] Past [facility] Narrative* [...] of this encounter (statuses as of 02/05/2022) [facility] Past illness Narrative* [...] of this encounter (statuses as of 02/05/2022) [facility] of Past illness Narrative* Problem Noted Date Resolved Date Acute renal failure superimp osed on stage 4 chronic kidney disease 01/02/2020 11/29/2020 Shortness of breath 11/23/2019 11/29/2020 Meralgia paresthetica of right side 02/20/2018 06/09/2018 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 12/07/2016 0 11/29/2020 Last [...] of this encounter (statuses as of 02/09/2022) [facility] History of Past illness Narrative* Problem Noted Date Resolved Date Acute renal failure superimp osed on stage 4 chronic kidney disease 01/02/2020 11/29/2020 Shortness of breath 11/23/2019 11/29/2020 Meralgia paresthetica of right side 02/20/2018 06/09/2018 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 12/07/2016 0 11/29/2020 Last [...] of this encounter (statuses as of 02/23/2022) [facility]ative* [...] of this encounter (statuses as of 03/19/2022) [facility]ative* [...] of this encounter (statuses as of 04/19/2022) [facility]arrative* [...] of this encounter (statuses as of 04/20/2022) [facility] illness [facility]arrative* [...] of this encounter (statuses as of 04/24/2022) [facility] Past illness Narrative* Problem Noted Date Resolved Date Acute renal failure superimp osed on stage 4 chronic kidney disease 01/02/2020 11/29/2020 Shortness of breath 11/23/2019 11/29/2020 Meralgia paresthetica of right side 02/20/2018 06/09/2018 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 12/07/2016 0 11/29/2020 Last [...] of this encounter (statuses as of 05/02/2022) [facility] Past [facility]arrative* [...] of this encounter (statuses as of 05/03/2022) [facility]arrative* [...] of this encounter (statuses as of 05/03/2022) [facility]ative* [...] of this encounter (statuses as of 05/07/2022) [facility] Past illness Narrative* Problem Noted Date Resolved Date Acute renal failure superimp osed on stage 4 chronic kidney disease 01/02/2020 11/29/2020 Shortness of breath 11/23/2019 11/29/2020 Meralgia paresthetica of right side 02/20/2018 06/09/2018 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 12/07/2016 0 11/29/2020 Last [...] of this encounter (statuses as of 05/16/2022) [facility] Past illness Narrative* [...] of this encounter (statuses as of 05/21/2022) [facility] of Past illness Narrative* Problem Noted Date Resolved Date Acute renal failure superimp osed on stage 4 chronic kidney disease 01/02/2020 11/29/2020 Shortness of breath 11/23/2019 11/29/2020 Meralgia paresthetica of right side 02/20/2018 06/09/2018 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 12/07/2016 0 11/29/2020 Last [...] of this encounter (statuses as of 05/23/2022) [facility] of Past illness Narrative* Problem Noted Date Resolved Date Acute renal failure superimp osed on stage 4 chronic kidney disease 01/02/2020 11/29/2020 Shortness of breath 11/23/2019 11/29/2020 Meralgia paresthetica of right side 02/20/2018 06/09/2018 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 12/07/2016 0 11/29/2020 Last [...] of this encounter (statuses as of 05/23/2022) [facility] Past [facility]arrative* [...] of this encounter (statuses as of 05/23/2022) [facility] Past illness Narrative* Problem Noted Date Resolved Date Acute renal failure superimp osed on stage 4 chronic kidney disease 01/02/2020 11/29/2020 Shortness of breath 11/23/2019 11/29/2020 Meralgia paresthetica of right side 02/20/2018 06/09/2018 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 12/07/2016 0 11/29/2020 Last [...] of this encounter (statuses as of 05/23/2022) [facility] of Past illness Narrative* Problem Noted Date Resolved Date Acute renal failure superimp osed on stage 4 chronic kidney disease 01/02/2020 11/29/2020 Shortness of breath 11/23/2019 11/29/2020 Meralgia paresthetica of right side 02/20/2018 06/09/2018 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 12/07/2016 0 11/29/2020 Last [...] of this encounter (statuses as of 05/29/2022) [facility] Past [facility]arrative* [...] of this encounter (statuses as of 05/31/2022) [facility] Past illness Narrative* Problem Noted Date Resolved Date Acute renal failure superimp osed on stage 4 chronic kidney disease 01/02/2020 11/29/2020 Shortness of breath 11/23/2019 11/29/2020 Meralgia paresthetica of right side 02/20/2018 06/09/2018 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 12/07/2016 0 11/29/2020 Last [...] of this encounter (statuses as of 06/14/2022) [facility] Past illness Narrative* Problem Noted Date Resolved Date Acute renal failure superimp osed on stage 4 chronic kidney disease 01/02/2020 11/29/2020 Shortness of breath 11/23/2019 11/29/2020 Meralgia paresthetica of right side 02/20/2018 06/09/2018 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 12/07/2016 0 11/29/2020 Last [...] of this encounter (statuses as of 06/15/2022) [facility]ative* [...] of this encounter (statuses as of 06/22/2022) [facility]* [...] of this encounter (statuses as of 06/27/2022) [facility]* Problem Noted Date Resolved Date Acute renal failure superimp osed on stage 4 chronic kidney disease 01/02/2020 11/29/2020 Shortness of breath 11/23/2019 11/29/2020 Meralgia paresthetica of right side 02/20/2018 06/09/2018 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 12/07/2016 0 11/29/2020 Last [...] of this encounter (statuses as of 07/05/2022) [facility]* [...] of this encounter (statuses as of 07/11/2022) [facility]* [...] of this encounter (statuses as of 07/12/2022) [facility]* [...] of this encounter (statuses as of 07/13/2022) [facility]* [...] of this encounter (statuses as of 08/23/2022) [facility]* [...] of this encounter (statuses as of 08/29/2022) [facility]* [...] of this encounter (statuses as of 08/30/2022) [facility]* [...] of this encounter (statuses as of 08/30/2022) [facility]* [...] of this encounter (statuses as of 09/26/2022) [facility]* Problem Noted Date Diagnosed Date Resolved Date Acute renal failure superimp osed on stage 4 chronic kidney disease 01/02/2020 11/29/2020 Shortness of breath 11/23/2019 11/30/19 Meralgia paresthetica of right side 02/20/2018 06/09/2018 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 12/07/2016 11/29/2020 Last Assessment [...] of this encounter (statuses as of 09/27/2022) [facility]* [...] of this encounter (statuses as of 10/24/2022) [facility]* [...] of this encounter (statuses as of 10/26/2022) [facility]* [...] of this encounter (statuses as of 10/27/2022) [facility]* [...] of this encounter (statuses as of 10/28/2022) [facility]* [...] of this encounter (statuses as of 11/07/2022) [facility]* [...] of this encounter (statuses as of 11/21/2022) [facility]* Problem Noted Date Diagnosed Date Resolved Date Acute renal failure superimp osed on stage 4 chronic kidney disease 01/02/2020 11/29/2020 Shortness of breath 11/23/2019 11/30/19 21 Meralgia paresthetica of right side 02/20/2018 06/09/2018 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 12/07/2016 11/29/2020 Last Assessment [...] of this encounter (statuses as of 11/23/2022) [facility]* [...] of this encounter (statuses as of 11/27/2022) [facility]* [...] of this encounter (statuses as of 12/19/2022) [facility]* Problem Noted Date Diagnosed Date Resolved Date Acute renal failure superimp osed on stage 4 chronic kidney disease 01/02/2020 11/29/2020 Shortness of breath 11/23/2019 11/30/19 Meralgia paresthetica of right side 02/20/2018 06/09/2018 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 12/07/2016 11/29/2020 Last Assessment [...] of this encounter (statuses as of 12/20/2022) [facility]* [...] of this encounter (statuses as of 12/25/2022) [facility]* [...] of this encounter (statuses as of 12/27/2022) [facility]* Problem Noted Date Diagnosed Date Resolved Date Acute renal failure superimp osed on stage 4 chronic kidney disease 01/02/2020 11/29/2020 Shortness of breath 11/23/2019 11/30/19 21 Meralgia paresthetica of right side 02/20/2018 06/09/2018 Nerve entrapment syndrome 02/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 12/07/2016 11/29/2020 Last Assessment [...] vs abscess ( intraabdominal) vs others Plan Leivn culture ( urine blood) Monitor closely and [...] of this encounter (statuses as of 01/05/2023) [facility]* Problem Noted Date Diagnosed Date Resolved Date Acute renal failure superimp osed on stage 4 chronic kidney disease 01/02/2020 11/29/2020 Shortness of breath 11/23/2019 11/30/19 21 Meralgia paresthetica of right side 02/20/2018 06/09/2018 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 12/07/2016 11/29/2020 Last Assessment [...] of this encounter (statuses as of 01/06/2023) [facility]* Problem Noted Date Diagnosed Date Resolved Date Acute renal failure superimp osed on stage 4 chronic kidney disease 01/02/2020 11/29/2020 Shortness of breath 11/23/2019 11/30/19 21 Meralgia paresthetica of right side 02/20/2018 06/09/2018 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 12/07/2016 11/29/2020 Last Assessment [...] of this encounter (statuses as of 01/06/2023) [facility]* [...] of this encounter (statuses as of 01/09/2023) [facility]* Problem Noted Date Diagnosed Date Resolved Date Acute renal failure superimp osed on stage 4 chronic kidney disease 01/02/2020 11/29/2020 Shortness of breath 11/23/2019 11/30/19 21 Meralgia paresthetica of right side 02/20/2018 06/09/2018 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 12/07/2016 11/29/2020 Last Assessment [...] of this encounter (statuses as of 01/10/2023) [facility]* [...] of this encounter (statuses as of 01/10/2023) [facility]* [...] of this encounter (statuses as of 01/11/2023) [facility]* Problem Noted Date Diagnosed Date Resolved Date Acute renal failure superimp osed on stage 4 chronic kidney disease 01/02/2020 11/29/2020 Shortness of breath 11/23/2019 11/30/19 Meralgia paresthetica of right side 02/20/2018 06/09/2018 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 12/07/2016 11/29/2020 Last Assessment [...] of this encounter (statuses as of 01/11/2023) [facility]* Problem Noted Date Diagnosed Date Resolved Date Acute renal failure superimp osed on stage 4 chronic kidney disease 01/02/2020 11/29/2020 Shortness of breath 11/23/2019 11/30/19 Meralgia paresthetica of right side 02/20/2018 06/09/2018 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 12/07/2016 11/29/2020 Last Assessment [...] of this encounter (statuses as of 01/15/2023) [facility]* Problem Noted Date Diagnosed Date Resolved Date Acute renal failure superimp osed on stage 4 chronic kidney disease 01/02/2020 11/29/2020 Shortness of breath 11/23/2019 11/30/19 21 Meralgia paresthetica of right side 02/20/2018 06/09/2018 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 12/07/2016 11/29/2020 Last Assessment [...] of this encounter (statuses as of 01/15/2023) [facility]* [...] of this encounter (statuses as of 01/15/2023) [facility]* [...] of this encounter (statuses as of 01/17/2023) [facility]* [...] of this encounter (statuses as of 01/18/2023) [facility] History of Past illness Narrative* [...] of this encounter (statuses as of 01/22/2023) [facility] History of Past illness Narrative* Problem Noted Date Diagnosed Date Resolved Date Acute renal failure superimp osed on stage 4 chronic kidney disease 01/02/2020 11/29/2020 Shortness of breath 11/23/2019 11/30/19 21 Meralgia paresthetica of right side 02/20/2018 06/09/2018 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 12/07/2016 11/29/2020 Last Assessment [...] of this encounter (statuses as of 02/12/2023) [facility] History of Past illness Narrative* [...] of this encounter (statuses as of 02/12/2023) [facility] Diagnosis Type 2 diabetes mellitus with microalbuminuria, with long-term current use of insulin (HCC)- Primary Medication management Encounter for long-term (current) use of other medications [facility] Diagnosis Bilateral wrist pain- Primary Pain in joint, forearm Chronic pain of left wrist Acute pain of right wrist [facility] of right [facility] Diagnosis Type 2 diabetes mellitus with hyperosmolar coma, with long-term current use of insulin (HCC)- Primary [facility] Diagnosis Bilateral wrist pain Pain in joint, forearm Chronic pain of left wrist Acute pain of right wrist [facility] Diagnosis Redness and swelling of thigh- Primary Pain of right lower extremity Primary hypertension Unspecified essential hypertension Fever, unspecified fever cause Nausea Nausea alone Swelling of limb [facility]* Diagnosis Lump of right thigh- Primary Tenderness of right lower extremity [facility] Diagnosis Lump of right thigh- Primary Localized swelling, mass, or lump of left upper extremity [facility] Diagnosis Localized swelling, mass, or lump of right lower extremity [facility] Diagnosis Type 2 diabetes mellitus with microalbuminuria, with long-term current use of insulin (HCC)- Primary Medication management Encounter for long-term (current) use of other medications [facility]* Diagnosis CKD (chronic kidney disease) stage 4, GFR 15-29 ml/min (HCC)- Primary Chronic kidney disease, Stage IV (severe) [facility] Diagnosis Localized swelling, mass, or lump of right lower extremity [facility] Diagnosis Lump of right thigh- Primary Type 2 diabetes mellitus with hyperosmolar coma, with long-term current use of insulin ([facility] Diagnosis Type 2 diabetes mellitus with microalbuminuria, with long-term current use of insulin ([facility])- Primary [facility] Diagnosis Abnormal vaginal bleeding- Primary Other specified noninflammatory disorder of vagina Chronic edema Edema Sleep disturbances Sleep disturbance, unspecified Acute otitis externa of right ear, unspecified type Pelvic cramping Unspecified symptom associated with female genital organs [facility] Diagnosis Abnormal vaginal bleeding- Primary Other specified noninflammatory disorder of vagina [facility] Diagnosis Abnormal vaginal bleeding Other specified noninflammatory disorder of vagina [facility] Diagnosis Type 2 diabetes mellitus with microalbuminuria, with long-term current use of insulin ([facility])- Primary Medication management Encounter for long-term (current) use of other medications [facility] Diagnosis History of recent hospitalization- Primary Personal history of unspecified disease Diarrhea, unspecified type Lower abdominal pain Abdominal pain, other specified site Hyperkalemia Hyperpotassemia Cellulitis, unspecified cellulitis site Anemia of chronic kidney failure, stage 4 (severe) ([facility]) [facility] Diagnosis Diarrhea, unspecified type- Primary [facility] Diagnosis Acquired hypothyroidism Unspecified hypothyroidism [facility] Diagnosis Chronic edema Edema [facility] Diagnosis Diarrhea, unspecified type- Primary Right wrist pain Pain in joint, forearm [facility] Diagnosis Dermatitis Contact dermatitis and other eczema, due to unspecified cause [facility] Diagnosis Dermatitis- [...] Hypertension, unspecified type [facility] Diagnosis Disorder of liver- Primary Unspecified disorder of liver Liver replaced by transplant (HCC) Liver replaced by transplant [facility] Diagnosis Type 2 diabetes mellitus with hyperosmolarity 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, with long-term current use of insulin (HCC)- Primary End stage kidney disease (HCC) End stage renal disease Dizziness Dizziness and giddiness Hypotension, unspecified hypotension type Other fatigue Acquired hypothyroidism Unspecified hypothyroidism Chronic diarrhea Diarrhea Liver replaced by transplant (HCC) Liver replaced by transplant [facility] Diagnosis Diarrhea, unspecified type- Primary [facility] Diagnosis Encounter for screening mammogram for breast cancer [facility] Diagnosis Hypothyroidism, unspecified type [facility]* Diagnosis Pre-transplant evaluation for kidney transplant- Primary Other specified pre-operative examination [facility]* Diagnosis Type 2 diabetes mellitus with microalbuminuria, with long-term current use of insulin (HCC)- Primary [facility]* Diagnosis Type 2 diabetes mellitus with hyperosmolarity 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, with long-term current use of insulin (HCC)- Primary [facility]* Diagnosis Type 2 diabetes mellitus with microalbuminuria, with long-term current use of insulin (HCC)- Primary [facility]* Diagnosis Hypothyroidism, unspecified type Diarrhea, unspecified type Sleep disturbances Sleep disturbance, unspecified Mixed hyperlipidemia Chronic edema Edema [facility] Diagnosis Right wrist pain Pain in joint, forearm [facility]* Diagnosis Type 2 diabetes mellitus with hyperosmolarity 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, with long-term current use of insulin (HCC)- Primary [facility]* Diagnosis Pre-transplant evaluation for kidney transplant- Primary Other specified pre-operative examination [facility] Diagnosis Chronic pain of both knees- Primary [facility] Diagnosis Pre-transplant evaluation for ESRD (end stage renal disease)- Primary Other specified pre-operative examination Liver transplant recipient (HCC) ESRD on dialysis (HCC) End stage renal disease Coronary artery disease involving [place] coronary artery of [place] heart without angina pectoris Type 2 diabetes mellitus with hyperosmolarity 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, with long-term current use of insulin ([facility]) Primary hypertension Unspecified essential hypertension [facility] Diagnosis Awaiting organ transplant- Primary Awaiting organ transplant status Dietary counseling and surveillance Dietary surveillance and counseling [facility] Diagnosis Type 2 diabetes mellitus with hyperosmolarity 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, with long-term current use of insulin ([facility])- Primary [facility]* Diagnosis Dermatitis Contact dermatitis and other eczema, due to unspecified cause [facility] Diagnosis Pre-transplant evaluation for end stage renal disease- Primary Other specified pre-operative examination Pre-operative cardiovascular examination History of heart artery stent Postsurgical percutaneous transluminal coronary angioplasty status Awaiting organ transplant Awaiting organ transplant status [facility] Diagnosis Rash- Primary Rash and other nonspecific skin eruption Itching Unspecified pruritic disorder [facility] Diagnosis Left hip pain- Primary Pain in joint, pelvic region and thigh Fall, initial encounter [facility] Diagnosis Type 2 diabetes mellitus with hyperosmolarity 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, with long-term current use of insulin ([facility]) documented in this encounter [facility]* Diagnosis Left knee pain, unspecified chronicity- Primary Left hip pain Pain in joint, pelvic region and thigh [facility] Diagnosis Pre-transplant evaluation for kidney transplant- Primary Other specified pre-operative examination [facility] Diagnosis Nausea- Primary Nausea alone Epigastric pain Abdominal pain, epigastric Type 2 diabetes mellitus with hyperosmolarity 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, with long-term current use of insulin ([facility]) documented in this encounter [facility]* Diagnosis Type 2 diabetes mellitus with hyperosmolarity 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, with long-term current use of insulin ([facility]) [facility] Diagnosis Encounter for screening for osteoporosis Special screening for osteoporosis Asymptomatic postmenopausal status [facility] Diagnosis Encounter for screening mammogram for breast cancer documented in this encounter [facility]* Diagnosis Epigastric pain- Primary Abdominal pain, epigastric Nausea Nausea alone Left knee pain, unspecified chronicity Medication management Encounter for long-term (current) use of other medications Encounter for immunization Need for other specified prophylactic vaccination against single bacterial disease documented in this encounter [facility]* Diagnosis Liver replaced by transplant (HCC)- Primary Liver replaced by transplant [facility] Diagnosis Preop cardiovascular exam- Primary Pre-operative cardiovascular examination documented in this encounter [facility]* Diagnosis Sleep disturbances Sleep disturbance, unspecified documented in this encounter [facility] for referral (narrative)* Diagnostic Procedure Only (Routine) - Closed Specialty Diagnoses / Procedures Referred By Ibrahima dick Referred To Contact XR IMAGING Diagnoses Bilateral wrist pain Chronic pain of left wrist Acute pain of right wrist Procedures XR HAND GENERAL 3V PA/LAT/OBL BILATERAL RADEX HAND MINIMUM 3 VIEWS Josse Lance APRN.CHILD AND ADOLESCENT PSYCHOLOGIST [address] [place] [address] Xr Imaging Referral ID Status Reason Start Date Expiration Date V isits Requested Visits Authorized [id number] Closed Auto-Generate d Referral 07/03/2021 08/02/2022 1 1 * Consult, Test, Treat (Routine) - Pending Review Specialty Diagnoses / Procedures Referred By Ibrahima dick Referred To Contact Orthopedics Diagnoses Bilateral wrist pain Chronic pain of left wrist Acute pain of right wrist Procedures CONSULT TO ORTHOPAEDICS OFFICE/OUTPATIENT [facility] MDM 60-74 MINUTES Josse Lance APRN.CHILD AND ADOLESCENT PSYCHOLOGIST [address] [place] [address] Referral ID Status Reason Start Date Expiration Date Visits Requested Visits Authorized [id number] Pending Review PCP Requested Referral 07/03/2021 07/03/2022 1 1 * Diagnostic Procedure Only (Routine) - Closed Specialty Diagnoses / Procedures Referred By Contac t Referred To Contact XR IMAGING Diagnoses Bilateral wrist pain Chronic pain of left wrist Acute pain of right wrist Procedures XR HAND GENERAL 3V PA/LAT/OBL LEFT RADEX HAND MINIMUM 3 VIEWS Josse Lance APRN.CHILD AND ADOLESCENT PSYCHOLOGIST [address] [place] [address] Xr Imaging Referral ID Status Reason Start Date Expiration Date V isits Requested Visits Authorized [id number] Closed Auto-Generate d Referral 07/03/2021 08/02/2022 1 1 * Diagnostic Procedure Only (Routine) - Closed Specialty Diagnoses / Procedures Referred By Contac t Referred To Contact XR IMAGING Diagnoses Bilateral wrist pain Chronic pain of left wrist Acute pain of right wrist Procedures XR HAND GENERAL 3V PA/LAT/OBL RIGHT RADEX HAND MINIMUM 3 VIEWS Josse Lance APRN.CHILD AND ADOLESCENT PSYCHOLOGIST [address] [place] [address] Xr Imaging Referral ID Status Reason Start Date Expiration Date V isits Requested Visits Authorized [id number] Closed Auto-Generate d Referral 07/03/2021 08/02/2022 1 1 [facility] for referral (narrative)* Outpatient Procedure (Urgent) - Authorized Specialty Diagnoses / Procedures Referred By Contac t Referred To Contact [facility] Diagnoses Redness and swelling of thigh Swelling of limb Procedures US LEG VEIN DVT UNL VAS LAB DUP-SCAN XTR VEINS UNILATERAL/LIMITED STUDY Jame Hunt MD [address] [place] [address] [facility] [address] [place] [address] Referral ID Status Reason Start Date Expiration Date Visits Requested Visits Authorized [id number] Authorized Auto-Generat ed Referral 08/14/2021 03/03/2022 1 1 [facility] for referral (narrative)* Diagnostic Procedure Only (Routine) - Authorized Specialty Diagnoses / Procedures Referred By Contac t Referred To Contact US IMAGING Diagnoses Lump of right thigh Tenderness of right lower extremity Procedures US EXTREMITY MASS/FLUID COLLECTION RT Silva Plasencia APRN.MORTICIAN INVESTIGATOR [address] [place] [address] Us Imaging Referral ID Status Reason Start Date Expiration Date Visits Requested Visits Authorized [id number] Authorized Auto-Generat ed Referral 08/25/2021 09/24/2022 1 1 [facility] for referral (narrative)* Diagnostic Procedure Only (Routine) - Closed Specialty Diagnoses / Procedures Referred By Contac t Referred To Contact MR IMAGING Diagnoses Localized swelling, mass, or lump of right lower extremity Procedures MRI UPPER LEG WO/W IVCON RT MRI LOWER EXTREM OTH/THN JT W/O & W/CONTR MATR Silva Plasencia APRN.MORTICIAN INVESTIGATOR [address] [place] [address] Mr Imaging Referral ID Status Reason Start Date Expiration Date Visits Re quested Visits Authorized [id number] Closed 09/21/2021 10/21/2021 1 1 [facility] for referral (narrative)* Diagnostic Procedure Only (Urgent) - Pending Review Specialty Diagnoses / Procedures Referred By Contac t Referred To Contact US IMAGING Diagnoses Abnormal vaginal bleeding Procedures US FEMALE PELVIS TRANSABD LTD US PELVIC NONOBSTETRIC IMAGE DCMTN LIMITED/F/U Jaci Lucero APRN.MORTICIAN INVESTIGATOR [address] [place] [address] Us Imaging Referral ID Status Reason Start Date Expiration Date Visits Requested Visits Authorized [id number] Pending Review Auto-Generat ed Referral 10/20/2021 11/19/2022 1 1 * Diagnostic Procedure Only (Routine) - Closed Specialty Diagnoses / Procedures Referred By Contac t Referred To Contact US IMAGING Diagnoses Abnormal vaginal bleeding Procedures US FEMALE PELVIS TRANSABD LTD US PELVIC NONOBSTETRIC IMAGE DCMTN LIMITED/F/U Jaci Lucero APRN.MORTICIAN INVESTIGATOR [address] [place] [address] Us Imaging Referral ID Status Reason Start Date Expiration Date V isits Requested Visits Authorized [id number] Closed Auto-Generate d Referral 10/20/2021 11/19/2022 1 1 [facility] for referral (narrative)* Diagnostic Procedure Only (Routine) - Closed Specialty Diagnoses / Procedures Referred By Contac t Referred To Contact US IMAGING Diagnoses Abnormal vaginal bleeding Procedures US FEMALE PELVIS TRANSVAG US TRANSVAGINAL Jaci Lucero APRN.MORTICIAN INVESTIGATOR [address] [place] [address] Us Imaging Referral ID Status Reason Start Date Expiration Date V isits Requested Visits Authorized [id number] Closed Auto-Generate d Referral 10/20/2021 11/19/2022 1 1 [facility] for referral (narrative)* Diagnostic Procedure Only (Routine) - Closed Specialty Diagnoses / Procedures Referred By Contac t Referred To Contact US IMAGING Diagnoses Abnormal vaginal bleeding Procedures US FEMALE PELVIS TRANSVAG US TRANSVAGINAL Jaci Lucero APRN.MORTICIAN INVESTIGATOR [address] [place] [address] Us Imaging Referral ID Status Reason Start Date Expiration Date V isits Requested Visits Authorized [id number] Closed Auto-Generate d Referral 10/20/2021 11/19/2022 1 1 * Diagnostic Procedure Only (Routine) - Closed Specialty Diagnoses / Procedures Referred By Contac t Referred To Contact US IMAGING Diagnoses Abnormal vaginal bleeding Procedures US FEMALE PELVIS TRANSABD LTD US PELVIC NONOBSTETRIC IMAGE DCMTN LIMITED/F/U Jaci Lucero APRN.MORTICIAN INVESTIGATOR [address] [place] [address] Us Imaging Referral ID Status Reason Start Date Expiration Date V isits Requested Visits Authorized [id number] Closed Auto-Generate d Referral 10/20/2021 11/19/2022 1 1 [facility] for referral (narrative)* Diagnostic Procedure Only (Routine) - Authorized Specialty Diagnoses / Procedures Referred By Contac t Referred To Contact BR IMAGING Diagnoses Encounter for screening mammogram for breast cancer Procedures JAY SCREENING SCREENING MAMMOGRAPHY BI 2-VIEW BREAST INC CAD Jame Hunt MD [address] [place] [address] [facility] [address] [place] [address] Referral ID Status Reason Start Date Expiration Date Visits Requested Visits Authorized [id number] Authorized Auto-Generat ed Referral 05/02/2022 06/01/2023 1 1 [facility] for referral (narrative)* Diagnostic Procedure Only (Urgent) - Closed Specialty Diagnoses / Procedures Referred By Contac t Referred To Contact XR IMAGING Diagnoses Left hip pain Fall, initial encounter Procedures XR HIP GENERAL 3V PELV/AP/LAT LEFT RADEX HIP UNILATERAL WITH PELVIS 2-3 VIEWS Erin Plasencia APRN.MORTICIAN INVESTIGATOR [address] [place] [address] [place] [address] Referral ID Status Reason Start Date Expiration Date V isits Requested Visits Authorized [id number] Closed Auto-Generate d Referral 11/07/2022 12/07/2023 1 1 [facility] for referral (narrative)* Diagnostic Procedure Only (Routine) - Closed Specialty Diagnoses / Procedures Referred By Contac t Referred To Contact XR IMAGING Diagnoses Left hip pain Left knee pain, unspecified chronicity Procedures XR KNEE GENERAL 4V AP BOTH/PA BOTH/LAT/MERC LEFT RADIOLOGIC EXAM KNEE COMPLETE 4/MORE VIEWS Ramin Mack PA-C [address] [place] [address] [place] [id number] Referral ID Status Reason Start Date Expiration Date V isits Requested Visits Authorized [id number] Closed Auto-Generate d Referral 11/26/2022 12/26/2023 1 1 * Consult, Test, Treat (Routine) - Pending Review Specialty Diagnoses / Procedures Referred By Contac t Referred To Contact Orthopedics Diagnoses Left hip pain Left knee pain, unspecified chronicity Procedures CONSULT TO ORTHOPAEDICS OFFICE/OUTPATIENT [facility] 60-74 MINUTES Charbel Esparza MD [address] [place] [address] Referral ID Status Reason Start Date Expiration Date Visits Requested Visits Authorized [id number] Pending Review PCP Requested Referral 11/26/2022 11/26/2023 1 1 [facility] for referral (narrative)* Diagnostic Procedure Only (Routine) - Closed Specialty Diagnoses / Procedures Referred By Ibrahima t Referred To Contact BR IMAGING Diagnoses Encounter for screening mammogram for breast cancer Procedures JAY SCREENING SCREENING MAMMOGRAPHY BI 2-VIEW BREAST INC Jame Bustos MD [address] [place] [address] [facility] [address] [place] [address] Referral ID Status Reason Start Date Expiration Date V isits Requested Visits Authorized [id number] Closed Auto-Generate d Referral 05/02/2022 06/01/2023 1 1 [facility] for visit Narrative* Diagnostic Procedure Only (Routine) - Closed Specialty Diagnoses / Procedures Referred By Contac t Referred To Contact MR IMAGING Diagnoses Localized swelling, mass, or lump of right lower extremity Procedures MRI UPPER LEG WO/W IVCON RT MRI LOWER EXTREM OTH/THN JT W/O & W/CONTR Silva Rowland APRN.MORTICIAN INVESTIGATOR [address] [place] [address] Mr Imaging Referral ID Status Reason Start Date Expiration Date Visits Re quested Visits Authorized [id number] Closed 09/21/2021 10/21/2021 1 1 [facility] Diagnostic Procedure Only (Routine) - Closed Specialty Diagnoses / Procedures Referred By Ibrahima dick Referred To Contact BR IMAGING Diagnoses Encounter for screening mammogram for breast cancer Procedures JAY SCREENING SCREENING MAMMOGRAPHY BI 2-VIEW BREAST INC Jame Bustos MD [address] [place] [address] [facility] [address] [place] [address] Referral ID Status Reason Start Date Expiration Date V isits Requested Visits Authorized [id number] Closed Auto-Generate d Referral 05/02/2022 06/01/2023 1 1 [facility] Summary Purpose Family History No Family History Records FoundNo Family History Records FoundNo Family History Records FoundNo Family History Records FoundNo Family History Records Found Advance Directives No Advanced Directives Records FoundDocuments on File Type Date Recorded 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 Advance Directive(s) Advance Directive(s) 04/25/2021 [...] Documents on File Type Date Recorded 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 Advance Directive(s) Advance Directive(s) 04/25/2021 [...] Documents on File Type Date Recorded 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 Advance Directive(s) Advance Directive(s) 07/30/2018 8:17 AM Documents on File Type Date Recorded 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 Advance Directive(s) Advance Directive(s) 07/30/2018 [...] OTH/THN JT W/O & W/CONTR Silva Rowland APRN.MORTICIAN INVESTIGATOR [address] [place] [address] [facility] Referral ID Status Reason Start Date Expiration Date Visits Requested Visits Authorized [id number] Pending Review Auto-Generat ed Referral 09/06/2021 10/06/2022 [...] MD [address] [place] [address] [facility] [address] [place] [id number] Referral ID Status Reason Start Date Expiration Date Visits Requested Visits Authorized [id number] Pending Review Financial Clearance Required - [employer] 04/24/2022 04/24/2023 99 99 Specialty Diagnoses / Procedures Referred By Contac t Referred To Contact Gastroenterology Diagnoses Chronic diarrhea Procedures CONSULT TO GASTROENTEROLOGY OFFICE/OUTPATIENT [facility] 60-74 MINUTES Silva Plasencia APRN.MORTICIAN INVESTIGATOR [address] [place] [address] Referral ID Status Reason Start Date Expiration Date Visits Requested Visits Authorized [id number] Pending Review PCP Requested Referral 05/02/2022 05/02/2023 1 1 Specialty Diagnoses / Procedures Referred By Contac t Referred To Contact Erin Plasencia APRN.MORTICIAN INVESTIGATOR [address] [place] [address] Referral ID Status Reason Start Date Expiration Date Visits Re quested Visits Authorized [id number] Closed 1 1 Referral ID Status Reason Start Date Expiration Date Visits Re quested Visits Authorized [id number] Closed 1 1 Specialty Diagnoses / Procedures Referred By Contac t Referred To Contact Gastroenterology Diagnoses Pre-transplant evaluation for end stage renal disease Awaiting organ transplant Procedures CONSULT TO GASTROENTEROLOGY OFFICE/OUTPATIENT [facility] 60-74 MINUTES Kel Victoria MD [address] [place] [address] Referral ID Status Reason Start Date Expiration Date Visits Requested Visits Authorized [id number] Pending Review PCP Requested Referral 10/03/2022 09/26/2023 1 1 Specialty Diagnoses / Procedures Referred By Contac t Referred To Contact Cardiology Diagnoses Pre-transplant evaluation for end stage renal disease Pre-operative cardiovascular examination History of heart artery stent Procedures CONSULT TO CARDIOLOGY OFFICE/OUTPATIENT [facility] 60-74 MINUTES Kel Victoria MD [address] [place] [address] Referral ID Status Reason Start Date Expiration Date Visits Requested Visits Authorized [id number] Pending Review PCP Requested Referral 10/03/2022 09/26/2023 1 1 Specialty Diagnoses / Procedures Referred By Contac t Referred To Contact Diagnoses Type 2 diabetes mellitus with hyperosmolarity 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, with long-term current use of insulin (HCC) Ramin Mack PA-C [address] [place] [address] Referral ID Status Reason Start Date Expiration Date Visits Re quested Visits Authorized [id number] Closed 1 1 Specialty Diagnoses / Procedures Referred By Geminiac t Referred To Contact Diagnoses Pre-transplant evaluation for kidney transplant Procedures CONSULT TO HEPATOLOGY OFFICE/OUTPATIENT [facility] 60-74 MINUTES Kel Victoria MD [address] [facility] [place] [address] Referral ID Status Reason Start Date Expiration Date Visits Requested Visits Authorized [id number] Pending Review PCP Requested Referral 12/19/2023 1 1 Specialty Diagnoses / Procedures Referred By Ibrahima t Referred To Contact Diagnoses Preop cardiovascular exam Procedures CARDIOVASCULAR MEDICINE OP FOLLOW UP APPT ORDER Lizeth Bey MD [address] [place] [id number] Referral ID Status Reason Start Date Expiration Date Visits Requested Visits Authorized [id number] Ref Not Required PCP Requested Referral 01/10/2023 01/10/2024 1 1 Additional Source Comments INFORMATION SOURCE (unrecogn ized section and content) DATE CREATED AUTHOR AUTHOR'S ORGANIZ ATION 12/07/2019 [facility] DATE CREATED AUTHOR AUTHOR'S ORGANIZ ATION 05/03/2020 [facility] DATE CREATED AUTHOR AUTHOR'S ORGANIZ ATION 01/12/2023 [facility] DATE CREATED AUTHOR AUTHOR'S ORGANIZ ATION 04/05/2023 [facility] Source Comments (unrecognize d section and content) In the event this informatio n is protected by the Federal Confidentiality of Alcohol and Drug Abuse Patient Records regulations: The Federal rules restrict any use of the information to criminally investigate or prosecute any alcohol or drug abuse patient.[facility] the event this information is protected by the Federal Confidentiality of Alcohol and Drug Abuse Patient Records regulations: The Federal rules restrict any use of the information to criminally investigate or prosecute any alcohol or drug abuse patient.[facility] CenterIn the event this information is protected by the Federal Confidentiality of Alcohol and Drug Abuse Patient Records regulations: The Federal rules restrict any use of the information to criminally investigate or prosecute any alcohol or drug abuse patient.[facility] CenterIn the event this information is protected by the Federal Confidentiality of Alcohol and Drug Abuse Patient Records regulations: The Federal rules restrict any use of the information to criminally investigate or prosecute any alcohol or drug abuse patient.[facility] CenterIn the event this information is protected by the Federal Confidentiality of Alcohol and Drug Abuse Patient Records regulations: The Federal rules restrict any use of the information to criminally investigate or prosecute any alcohol or drug abuse patient.[facility] CenterIn the event this information is protected by the Federal Confidentiality of Alcohol and Drug Abuse Patient Records regulations: The Federal rules restrict any use of the information to criminally investigate or prosecute any alcohol or drug abuse patient.[facility] CenterIn the event this information is protected by the Federal Confidentiality of Alcohol and Drug Abuse Patient Records regulations: The Federal rules restrict any use of the information to criminally investigate or prosecute any alcohol or drug abuse patient.[facility] CenterIn the event this information is protected by the Federal Confidentiality of Alcohol and Drug Abuse Patient Records regulations: The Federal rules restrict any use of the information to criminally investigate or prosecute any alcohol or drug abuse patient.[facility] CenterIn the event this information is protected by the Federal Confidentiality of Alcohol and Drug Abuse Patient Records regulations: The Federal rules restrict any use of the information to criminally investigate or prosecute any alcohol or drug abuse patient.[facility] CenterIn the event this information is protected by the Federal Confidentiality of Alcohol and Drug Abuse Patient Records regulations: The Federal rules restrict any use of the information to criminally investigate or prosecute any alcohol or drug abuse patient.[facility] CenterIn the event this information is protected by the Federal Confidentiality of Alcohol and Drug Abuse Patient Records regulations: The Federal rules restrict any use of the information to criminally investigate or prosecute any alcohol or drug abuse patient.[facility] CenterIn the event this information is protected by the Federal Confidentiality of Alcohol and Drug Abuse Patient Records regulations: The Federal rules restrict any use of the information to criminally investigate or prosecute any alcohol or drug abuse patient.[facility] CenterIn the event this information is protected by the Federal Confidentiality of Alcohol and Drug Abuse Patient Records regulations: The Federal rules restrict any use of the information to criminally investigate or prosecute any alcohol or drug abuse patient.[facility] CenterIn the event this information is protected by the Federal Confidentiality of Alcohol and Drug Abuse Patient Records regulations: The Federal rules restrict any use of the information to criminally investigate or prosecute any alcohol or drug abuse patient.[facility] CenterIn the event this information is protected by the Federal Confidentiality of Alcohol and Drug Abuse Patient Records regulations: The Federal rules restrict any use of the information to criminally investigate or prosecute any alcohol or drug abuse patient.[facility] CenterIn the event this information is protected by the Federal Confidentiality of Alcohol and Drug Abuse Patient Records regulations: The Federal rules restrict any use of the information to criminally investigate or prosecute any alcohol or drug abuse patient.[facility] CenterIn the event this information is protected by the Federal Confidentiality of Alcohol and Drug Abuse Patient Records regulations: The Federal rules restrict any use of the information to criminally investigate or prosecute any alcohol or drug abuse patient.[facility] CenterIn the event this information is protected by the Federal Confidentiality of Alcohol and Drug Abuse Patient Records regulations: The Federal rules restrict any use of the information to criminally investigate or prosecute any alcohol or drug abuse patient.[facility] CenterIn the event this information is protected by the Federal Confidentiality of Alcohol and Drug Abuse Patient Records regulations: The Federal rules restrict any use of the information to criminally investigate or prosecute any alcohol or drug abuse patient.[facility] CenterIn the event this information is protected by the Federal Confidentiality of Alcohol and Drug Abuse Patient Records regulations: The Federal rules restrict any use of the information to criminally investigate or prosecute any alcohol or drug abuse patient.[facility] CenterIn the event this information is protected by the Federal Confidentiality of Alcohol and Drug Abuse Patient Records regulations: The Federal rules restrict any use of the information to criminally investigate or prosecute any alcohol or drug abuse patient.[facility] CenterIn the event this information is protected by the Federal Confidentiality of Alcohol and Drug Abuse Patient Records regulations: The Federal rules restrict any use of the information to criminally investigate or prosecute any alcohol or drug abuse patient.[facility] CenterIn the event this information is protected by the Federal Confidentiality of Alcohol and Drug Abuse Patient Records regulations: The Federal rules restrict any use of the information to criminally investigate or prosecute any alcohol or drug abuse patient.[facility] CenterIn the event this information is protected by the Federal Confidentiality of Alcohol and Drug Abuse Patient Records regulations: The Federal rules restrict any use of the information to criminally investigate or prosecute any alcohol or drug abuse patient.[facility] CenterIn the event this information is protected by the Federal Confidentiality of Alcohol and Drug Abuse Patient Records regulations: The Federal rules restrict any use of the information to criminally investigate or prosecute any alcohol or drug abuse patient.[facility] CenterIn the event this information is protected by the Federal Confidentiality of Alcohol and Drug Abuse Patient Records regulations: The Federal rules restrict any use of the information to criminally investigate or prosecute any alcohol or drug abuse patient.[facility] CenterIn the event this information is protected by the Federal Confidentiality of Alcohol and Drug Abuse Patient Records regulations: The Federal rules restrict any use of the information to criminally investigate or prosecute any alcohol or drug abuse patient.[facility] CenterIn the event this information is protected by the Federal Confidentiality of Alcohol and Drug Abuse Patient Records regulations: The Federal rules restrict any use of the information to criminally investigate or prosecute any alcohol or drug abuse patient.[facility] CenterIn the event this information is protected by the Federal Confidentiality of Alcohol and Drug Abuse Patient Records regulations: The Federal rules restrict any use of the information to criminally investigate or prosecute any alcohol or drug abuse patient.[facility] CenterIn the event this information is protected by the Federal Confidentiality of Alcohol and Drug Abuse Patient Records regulations: The Federal rules restrict any use of the information to criminally investigate or prosecute any alcohol or drug abuse patient.[facility] CenterIn the event this information is protected by the Federal Confidentiality of Alcohol and Drug Abuse Patient Records regulations: The Federal rules restrict any use of the information to criminally investigate or prosecute any alcohol or drug abuse patient.[facility] CenterIn the event this information is protected by the Federal Confidentiality of Alcohol and Drug Abuse Patient Records regulations: The Federal rules restrict any use of the information to criminally investigate or prosecute any alcohol or drug abuse patient.[facility] CenterIn the event this information is protected by the Federal Confidentiality of Alcohol and Drug Abuse Patient Records regulations: The Federal rules restrict any use of the information to criminally investigate or prosecute any alcohol or drug abuse patient.[facility] CenterIn the event this information is protected by the Federal Confidentiality of Alcohol and Drug Abuse Patient Records regulations: The Federal rules restrict any use of the information to criminally investigate or prosecute any alcohol or drug abuse patient.[facility] CenterIn the event this information is protected by the Federal Confidentiality of Alcohol and Drug Abuse Patient Records regulations: The Federal rules restrict any use of the information to criminally investigate or prosecute any alcohol or drug abuse patient.[facility] CenterIn the event this information is protected by the Federal Confidentiality of Alcohol and Drug Abuse Patient Records regulations: The Federal rules restrict any use of the information to criminally investigate or prosecute any alcohol or drug abuse patient.[facility] CenterIn the event this information is protected by the Federal Confidentiality of Alcohol and Drug Abuse Patient Records regulations: The Federal rules restrict any use of the information to criminally investigate or prosecute any alcohol or drug abuse patient.[facility] CenterIn the event this information is protected by the Federal Confidentiality of Alcohol and Drug Abuse Patient Records regulations: The Federal rules restrict any use of the information to criminally investigate or prosecute any alcohol or drug abuse patient.[facility] CenterIn the event this information is protected by the Federal Confidentiality of Alcohol and Drug Abuse Patient Records regulations: The Federal rules restrict any use of the information to criminally investigate or prosecute any alcohol or drug abuse patient.[facility] CenterIn the event this information is protected by the Federal Confidentiality of Alcohol and Drug Abuse Patient Records regulations: The Federal rules restrict any use of the information to criminally investigate or prosecute any alcohol or drug abuse patient.[facility] CenterIn the event this information is protected by the Federal Confidentiality of Alcohol and Drug Abuse Patient Records regulations: The Federal rules restrict any use of the information to criminally investigate or prosecute any alcohol or drug abuse patient.[facility] CenterIn the event this information is protected by the Federal Confidentiality of Alcohol and Drug Abuse Patient Records regulations: The Federal rules restrict any use of the information to criminally investigate or prosecute any alcohol or drug abuse patient.[facility] CenterIn the event this information is protected by the Federal Confidentiality of Alcohol and Drug Abuse Patient Records regulations: The Federal rules restrict any use of the information to criminally investigate or prosecute any alcohol or drug abuse patient.[facility] CenterIn the event this information is protected by the Federal Confidentiality of Alcohol and Drug Abuse Patient Records regulations: The Federal rules restrict any use of the information to criminally investigate or prosecute any alcohol or drug abuse patient.[facility] CenterIn the event this information is protected by the Federal Confidentiality of Alcohol and Drug Abuse Patient Records regulations: The Federal rules restrict any use of the information to criminally investigate or prosecute any alcohol or drug abuse patient.[facility] CenterIn the event this information is protected by the Federal Confidentiality of Alcohol and Drug Abuse Patient Records regulations: The Federal rules restrict any use of the information to criminally investigate or prosecute any alcohol or drug abuse patient.[facility] CenterIn the event this information is protected by the Federal Confidentiality of Alcohol and Drug Abuse Patient Records regulations: The Federal rules restrict any use of the information to criminally investigate or prosecute any alcohol or drug abuse patient.[facility] CenterIn the event this information is protected by the Federal Confidentiality of Alcohol and Drug Abuse Patient Records regulations: The Federal rules restrict any use of the information to criminally investigate or prosecute any alcohol or drug abuse patient.[facility] CenterIn the event this information is protected by the Federal Confidentiality of Alcohol and Drug Abuse Patient Records regulations: The Federal rules restrict any use of the information to criminally investigate or prosecute any alcohol or drug abuse patient.[facility] CenterIn the event this information is protected by the Federal Confidentiality of Alcohol and Drug Abuse Patient Records regulations: The Federal rules restrict any use of the information to criminally investigate or prosecute any alcohol or drug abuse patient.[facility] CenterIn the event this information is protected by the Federal Confidentiality of Alcohol and Drug Abuse Patient Records regulations: The Federal rules restrict any use of the information to criminally investigate or prosecute any alcohol or drug abuse patient.[facility] CenterIn the event this information is protected by the Federal Confidentiality of Alcohol and Drug Abuse Patient Records regulations: The Federal rules restrict any use of the information to criminally investigate or prosecute any alcohol or drug abuse patient.[facility] CenterIn the event this information is protected by the Federal Confidentiality of Alcohol and Drug Abuse Patient Records regulations: The Federal rules restrict any use of the information to criminally investigate or prosecute any alcohol or drug abuse patient.[facility] CenterIn the event this information is protected by the Federal Confidentiality of Alcohol and Drug Abuse Patient Records regulations: The Federal rules restrict any use of the information to criminally investigate or prosecute any alcohol or drug abuse patient.[facility] CenterIn the event this information is protected by the Federal Confidentiality of Alcohol and Drug Abuse Patient Records regulations: The Federal rules restrict any use of the information to criminally investigate or prosecute any alcohol or drug abuse patient.[facility] CenterIn the event this information is protected by the Federal Confidentiality of Alcohol and Drug Abuse Patient Records regulations: The Federal rules restrict any use of the information to criminally investigate or prosecute any alcohol or drug abuse patient.[facility] CenterIn the event this information is protected by the Federal Confidentiality of Alcohol and Drug Abuse Patient Records regulations: The Federal rules restrict any use of the information to criminally investigate or prosecute any alcohol or drug abuse patient.[facility] CenterIn the event this information is protected by the Federal Confidentiality of Alcohol and Drug Abuse Patient Records regulations: The Federal rules restrict any use of the information to criminally investigate or prosecute any alcohol or drug abuse patient.[facility] CenterIn the event this information is protected by the Federal Confidentiality of Alcohol and Drug Abuse Patient Records regulations: The Federal rules restrict any use of the information to criminally investigate or prosecute any alcohol or drug abuse patient.[facility] CenterIn the event this information is protected by the Federal Confidentiality of Alcohol and Drug Abuse Patient Records regulations: The Federal rules restrict any use of the information to criminally investigate or prosecute any alcohol or drug abuse patient.[facility] CenterIn the event this information is protected by the Federal Confidentiality of Alcohol and Drug Abuse Patient Records regulations: The Federal rules restrict any use of the information to criminally investigate or prosecute any alcohol or drug abuse patient.[facility] CenterIn the event this information is protected by the Federal Confidentiality of Alcohol and Drug Abuse Patient Records regulations: The Federal rules restrict any use of the information to criminally investigate or prosecute any alcohol or drug abuse patient.[facility] CenterIn the event this information is protected by the Federal Confidentiality of Alcohol and Drug Abuse Patient Records regulations: The Federal rules restrict any use of the information to criminally investigate or prosecute any alcohol or drug abuse patient.[facility] CenterIn the event this information is protected by the Federal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 [facility]/15/[facility] [address] [place] [address] Pharmacist Pharmacy 07/17/18 Vaughn Reeves RN [facility] [address] [place] [address] Registered Nurse Transplant Center 04/13/19 Ricki Dc MD [address] [place] [address] Journal Box Inspector Nephrology 01/11/20 Vicente Vargas MD [address] [place] [address] Cardiology 04/05/21 Radio Frequency Design Engineer Relationship Specialty Start Date End Date Jame uHnt MD [address] [facility] [place] [place] [address] PCP - General Internal Medicine 08/15/16 [facility] [address] [place] [address] Pharmacist Pharmacy 07/17/18 Vaughn Reeves RN [facility] [address] [place] [address] Registered Nurse Transplant Center 04/13/19 Ricki Dc MD [address] [place] [address] Journal Box Inspector Nephrology 01/11/20 Vicente Vargas MD [address] [place] [address] Cardiology 04/05/21 Radio Frequency Design Engineer Relationship Specialty Start Date End Date Jame Hunt MD [address] [place] [address] PCP - General Internal Medicine 08/15/16 [facility] [address] [place] [address] Pharmacist Pharmacy 07/17/18 Vaughn Reeves, NIEVES [facility] [address] [place] [address] Registered Nurse Transplant Center 04/13/19 Ricki Dc MD [address] [facility] [address] Journal Box Inspector Nephrology 01/11/20 Vicente Vargas MD [address] [place] [address] Cardiology 04/05/21 Radio Frequency Design Engineer Relationship Specialty Start Date End Date Jame Hunt MD [address] [facility] [place] [address] PCP - General Internal Medicine 08/15/16 Graham Kim, Formerly [facility] [address] [place] [address] Pharmacist Pharmacy 07/17/18 Vaughn Reeves, NIEVES [facility] [address] [place] [address] Registered Nurse Transplant Center 04/13/19 Ricki Dc MD [address] [place] [address] [place] [address] Journal Box Inspector Nephrology 01/11/20 Vicente Vargas MD [address] [place] [address] Cardiology 04/05/21 Radio Frequency Design Engineer Relationship Specialty Start Date End Date Jame Hunt MD [address] [facility] [place] [place] [address] PCP - General Internal Medicine 08/15/16 Kim La, Formerly [facility] [address] [place] [address] Pharmacist Pharmacy 07/17/18 Vaughn Reeves RN [facility] [address] [place] [address] Registered Nurse Transplant Center 04/13/19 Ricki Dc MD [address] [place] [address] [place] [address] Journal Box Inspector Nephrology 01/11/20 Vicente Vargas MD [address] [place] [address] Cardiology 04/05/21 Radio Frequency Design Engineer Relationship Specialty Start Date End Date Jame Hunt MD [address] [place] [address] PCP - General Internal Medicine 08/15/16 AbhinavKim harris, Formerly [facility] [address] [place] [address] Pharmacist Pharmacy 07/17/18 Vaughn Reeves RN [facility] [address] [place] [address] Registered Nurse Transplant Center 04/13/19 Ricki Dc MD [address] [place] [address] [place] [address] Journal Box Inspector Nephrology 01/11/20 Vicente Vargas MD [address] [place] [address] Cardiology 04/05/21 Radio Frequency Design Engineer Relationship Specialty Start Date End Date Jame Hunt MD [address] [place] [address] PCP - General Internal Medicine 08/15/16 AbhinavKim harris, Formerly [facility] [address] [place] [address] Pharmacist Pharmacy 07/17/18 Vaughn Reeves RN [facility] [address] [place] [address] Registered Nurse Transplant Center 04/13/19 Ricki Dc MD [address] [place] [address] [place] [address] Journal Box Inspector Nephrology 01/11/20 Vicente Vargas MD [address] [place] [address] Cardiology 04/05/21 Radio Frequency Design Engineer Relationship Specialty Start Date End Date Jame Hunt MD [address] [place] [address] PCP - General Internal Medicine 08/15/16 Kim La, Formerly [facility] [address] [place] [address] Pharmacist Pharmacy 07/17/18 Vaughn Reeves, RN [facility] [address] [place] [address] Registered Nurse Transplant Center 04/13/19 Ricki Dc MD [address] [place] [address] [place] [address] Journal Box Inspector Nephrology 01/11/20 Vicente Vargas MD [address] [place] [address] Cardiology 04/05/21 Radio Frequency Design Engineer Relationship Specialty Start Date End Date Jame Hunt MD [address] [facility] [place] [place] [address] PCP - General Internal Medicine 08/15/16 Kim La, Formerly [facility] [address] [place] [address] Pharmacist Pharmacy 07/17/18 Vaughn Reeves, RN [facility] [address] [place] [address] Registered Nurse Transplant Center 04/13/19 Ricki Dc MD [address] [place] [address] [place] [address] Journal Box Inspector Nephrology 01/11/20 Vicente Vargas MD [address] [place] [address] Cardiology 04/05/21 Roxie Palmer, NIEVES [address] [place] [address] [employer] Utility Worker 09/11/21 Radio Frequency Design Engineer Relationship Specialty Start Date End Date Jame Hunt MD [address] [place] [address] PCP - General Internal Medicine 08/15/16 [facility] [address] [place] [address] Pharmacist Pharmacy 07/17/18 Vaughn Reeves, NIEVES [facility] [address] [place] [address] Registered Nurse Transplant Center 04/13/19 Ricki Dc MD [address] [place] [address] [place] [address] Journal Box Inspector Nephrology 01/11/20 Vicente Vargas MD [address] [place] [address] Cardiology 04/05/21 Roxie Palmer, NIEVES [address] [place] [address] [employer] Utility Worker 09/11/21 Radio Frequency Design Engineer Relationship Specialty Start Date End Date Jame Hunt MD [address] [place] [address] PCP - General Internal Medicine 08/15/16 [facility] [address] [place] [address] Pharmacist Pharmacy 07/17/18 Vaughn Reeves RN [facility] [address] [place] [address] Registered Nurse Transplant Center 04/13/19 Ricki Dc MD [address] [place] [address] [place] [address] Journal Box Inspector Nephrology 01/11/20 Vicente Vargas MD [address] [place] [address] Cardiology 04/05/21 Roxie Palmer RN [address] [place] [address] [employer] Utility Worker 09/11/21 Radio Frequency Design Engineer Relationship Specialty Start Date End Date Jame Hunt MD [address] [place] [address] PCP - General Internal Medicine 08/15/16 Kim La, Formerly [facility] [address] [place] [address] Pharmacist Pharmacy 07/17/18 Vaughn Reeves RN [facility] [address] [place] [address] Registered Nurse Transplant Center 04/13/19 Ricki Dc MD [address] [address] Journal Box Inspector Nephrology 01/11/20 Vicente Vargas MD [address] [place] [address] Cardiology 04/05/21 Roxie Palmer RN [address] [place] [address] [employer] Utility Worker 09/11/21 Radio Frequency Design Engineer Relationship Specialty Start Date End Date Jame Hunt MD [address] [place] [address] PCP - General Internal Medicine 08/15/16 Kim La, Formerly [facility] [address] [place] [address] Pharmacist Pharmacy 07/17/18 Vaughn Reeves RN [facility] [address] [place] [address] Registered Nurse Transplant Center 04/13/19 Ricki Dc MD [address] [address] Journal Box Inspector Nephrology 01/11/20 Vicente Vargas MD [address] [place] [address] Cardiology 04/05/21 Roxie Palmer, NIEVES [address] [place] [address] [employer] Utility Worker 09/11/21 Radio Frequency Design Engineer Relationship Specialty Start Date End Date Jame Hunt MD [address] [place] [address] PCP - General Internal Medicine 08/15/16 Kim La, Formerly [facility] [address] [place] [address] Pharmacist Pharmacy 07/17/18 Vaughn Reeves RN [facility] [address] [place] [address] Registered Nurse Transplant Center 04/13/19 Ricki Dc MD [address] [place] [address] [place] [address] Journal Box Inspector Nephrology 01/11/20 Vicente Vargas MD [address] [place] [address] Cardiology 04/05/21 Roxie Palmer RN [address] [place] [address] [employer] Utility Worker 09/11/21 Radio Frequency Design Engineer Relationship Specialty Start Date End Date Jame Hunt MD [address] [place] [address] PCP - General Internal Medicine 08/15/16 Kim La, Formerly [facility] [address] [place] [address] Pharmacist Pharmacy 07/17/18 Vaughn Reeves RN [facility] [address] [place] [address] Registered Nurse Transplant Center 04/13/19 Ricki Dc MD [address] [place] [address] [place] [address] Journal Box Inspector Nephrology 01/11/20 Vicente Vargas MD [address] [place] [address] Cardiology 04/05/21 Roxie Palmer, NIEVES [address] [place] [address] [employer] Utility Worker 09/11/21 Radio Frequency Design Engineer Relationship Specialty Start Date End Date Jame Hunt MD [address] [place] [address] PCP - General Internal Medicine 08/15/16 AbhinavKim harris, Formerly [facility] [address] [place] [address] Pharmacist Pharmacy 07/17/18 Vaughn Reeves RN [facility] [address] [place] [address] Registered Nurse Transplant Center 04/13/19 Ricki Dc MD [address] [place] [address] [place] [address] Journal Box Inspector Nephrology 01/11/20 Vicente Vargas MD [address] [place] [address] Cardiology 04/05/21 Roxie Palmer RN [address] [place] [address] [employer] Utility Worker 09/11/21 Radio Frequency Design Engineer Relationship Specialty Start Date End Date Jame Hunt MD [address] [place] [address] PCP - General Internal Medicine 08/15/16 Kim La, Formerly [facility] [address] [place] [address] Pharmacist Pharmacy 07/17/18 Vaughn Reeves RN [facility] [address] [place] [address] Registered Nurse Transplant Center 04/13/19 Ricki Dc MD [address] [place] [address] [place] [address] Journal Box Inspector Nephrology 01/11/20 Vicente Vargas MD [address] [place] [address] Cardiology 04/05/21 Roxie Palmer, NIEVES [address] [place] [address] [employer] Utility Worker 09/11/21 Radio Frequency Design Engineer Relationship Specialty Start Date End Date Jame Hunt MD [address] [place] [address] PCP - General Internal Medicine 08/15/16 Kim La, Formerly [facility] [address] [place] [address] Pharmacist Pharmacy 07/17/18 Vaughn Reeves, NIEVES [facility] [address] [place] [address] Registered Nurse Transplant Center 04/13/19 Ricki Dc MD [address] [place] [address] [place] [address] Journal Box Inspector Nephrology 01/11/20 Vicente Vargas MD [address] [place] [address] Cardiology 04/05/21 Roxie Palmer RN [address] [place] [address] [employer] Utility Worker 09/11/21 Radio Frequency Design Engineer Relationship Specialty Start Date End Date Jame Hunt MD [address] [place] [address] PCP - General Internal Medicine 08/15/16 Kim La, Formerly [facility] [address] [place] [address] Pharmacist Pharmacy 07/17/18 Vaughn Reeves RN [facility] [address] [place] [address] Registered Nurse Transplant Center 04/13/19 Ricki Dc MD [address] [place] [address] [place] [address] Journal Box Inspector Nephrology 01/11/20 Vicente Vargas MD [address] [place] [address] Cardiology 04/05/21 Roxie Palmer, NIEVES [address] [place] [address] [employer] Utility Worker 09/11/21 Radio Frequency Design Engineer Relationship Specialty Start Date End Date Jame Hunt MD [address] [place] [address] PCP - General Internal Medicine 08/15/16 Kim La, Formerly [facility] [address] [place] [address] Pharmacist Pharmacy 07/17/18 Vaughn Reeves RN [facility] [address] [place] [address] Registered Nurse Transplant Center 04/13/19 Ricki Dc MD [address] [place] [address] [place] [address] Journal Box Inspector Nephrology 01/11/20 Vicente Vargas MD [address] [place] [address] Cardiology 04/05/21 Roxie Palmer RN [address] [place] [address] [employer] Utility Worker 09/11/21 Radio Frequency Design Engineer Relationship Specialty Start Date End Date Jame Hunt MD [address] [place] [address] PCP - General Internal Medicine 08/15/16 Kim La, Formerly [facility] [address] [place] [address] Pharmacist Pharmacy 07/17/18 Vaughn Reeves RN [facility] [address] [place] [address] Registered Nurse Transplant Center 04/13/19 Ricki Dc MD [address] [place] [address] [place] [address] Journal Box Inspector Nephrology 01/11/20 Vicente Vargas MD [address] [place] [address] Cardiology 04/05/21 Roxie Palmer RN [address] [place], [place] [id number] [employer] Utility Worker 09/11/21 Radio Frequency Design Engineer Relationship Specialty Start Date End Date Jame Hunt MD [address] [place] [address] PCP - General Internal Medicine 08/15/16 Abhinav, Kim, Formerly [facility] [address] [place] [address] Pharmacist Pharmacy 07/17/18 Vaughn Reeves RN [facility] [address] [place] [address] Registered Nurse Transplant Center 04/13/19 Ricki Dc MD [address] [place] [address] [place] [address] Journal Box Inspector Nephrology 01/11/20 Vicente Vargas MD [address] [place] [address] Cardiology 04/05/21 Roxie Palmer RN [address] [place], [place] [id number] [employer] Utility Worker 09/11/21 Radio Frequency Design Engineer Relationship Specialty Start Date End Date Jame Hunt MD [address] [place] [address] PCP - General Internal Medicine 08/15/16 Graham, Kim, Formerly [facility] [address] [place] [address] Pharmacist Pharmacy 07/17/18 Vaughn Reeves RN [facility] [address] [place] [address] Registered Nurse Transplant Center 04/13/19 Ricki Dc MD [address] [place] [address] [place] [address] Journal Box Inspector Nephrology 01/11/20 Vicente Vargas MD [address] [place] [address] Cardiology 04/05/21 Roxie Palmer RN [address] [place], [place] 1202331 [employer] Utility Worker 09/11/21 Radio Frequency Design Engineer Relationship Specialty Start Date End Date Jame Hunt MD [address] [place] [address] PCP - General Internal Medicine 08/15/16 Kim La, Formerly [facility] [address] [place] [address] Pharmacist Pharmacy 07/17/18 Vaughn Reeves RN [facility] [address] [place] [address] Registered Nurse Transplant Center 04/13/19 Ricki Dc MD [address] [place] [address] [place] [address] Journal Box Inspector Nephrology 01/11/20 Vicente Vargas MD [address] [place] [address] Cardiology 04/05/21 Roxie Palmer RN [address] [place], [place] [id number] [employer] Utility Worker 09/11/21 Radio Frequency Design Engineer Relationship Specialty Start Date End Date Jame Hunt MD [address] [place] [address] PCP - General Internal Medicine 08/15/16 Kim La, Formerly [facility] [address] [place] [address] Pharmacist Pharmacy 07/17/18 Vaughn Reeves RN [facility] [address] [place] [address] Registered Nurse Transplant Center 04/13/19 Ricki Dc MD [address] [place] [address] [place] [address] Journal Box Inspector Nephrology 01/11/20 Vicente Vargas MD [address] [place] [address] Cardiology 04/05/21 Roxie Palmer RN [address] [place], [place] 7032031 [employer] Utility Worker 09/11/21 Radio Frequency Design Engineer Relationship Specialty Start Date End Date Jame Hunt MD [address] [place] [address] PCP - General Internal Medicine 08/15/16 Kim La, Formerly [facility] [address] [place] [address] Pharmacist Pharmacy 07/17/18 Vaughn Reeves, NIEVES [facility] [address] [place] [address] Registered Nurse Transplant Center 04/13/19 Ricki Dc MD [address] [place] [address] [place] [address] Journal Box Inspector Nephrology 01/11/20 Vicente Vargas MD [address] [place] [address] Cardiology 04/05/21 Roxie Palmer RN [address] [place], [place] [id number] [employer] Utility Worker 09/11/21 Radio Frequency Design Engineer Relationship Specialty Start Date End Date Jame Hunt MD [address] [place] [address] PCP - General Internal Medicine 08/15/16 Kim La, Formerly [facility] [address] [place] [address] Pharmacist Pharmacy 07/17/18 Vaughn Reeves RN [facility] [address] [place] [address] Registered Nurse Transplant Center 04/13/19 Ricki Dc MD [address] [place] [address] [place] [address] Journal Box Inspector Nephrology 01/11/20 Vicente Vargas MD [address] [place] [address] Cardiology 04/05/21 Roxie Palmer RN [address] [place], [place] 8882831 [employer] Utility Worker 09/11/21 Radio Frequency Design Engineer Relationship Specialty Start Date End Date Jame Hunt MD [address] [facility] [place] [address] PCP - General Internal Medicine 08/15/16 Kim La, Formerly [facility] [address] [place] [address] Pharmacist Pharmacy 07/17/18 Vaughn Reeves, NIEVES [facility] [address] [place] [address] Registered Nurse Transplant Center 04/13/19 Ricki Dc MD [address] [place] [address] [place] [address] Journal Box Inspector Nephrology 01/11/20 Vicente Vargas MD [address] [place] [address] Cardiology 04/05/21 Roxie Palmer, NIEVES [address] [place], [place] 3135731 [employer] Utility Worker 09/11/21 Radio Frequency Design Engineer Relationship Specialty Start Date End Date Jame Hunt MD [address] [facility] [place] [place] [address] PCP - General Internal Medicine 08/15/16 Kim La, Formerly [facility] [address] [place] [address] Pharmacist Pharmacy 07/17/18 Vaughn Reeves, NIEVES [facility] [address] [place] [address] Registered Nurse Transplant Center 04/13/19 Ricki Dc MD [address] [place] [address] [place] [address] Journal Box Inspector Nephrology 01/11/20 Vciente Vargas MD [address] [place] [address] Cardiology 04/05/21 Roxie Palmer RN [address] [place], [place] [id number] [employer] Utility Worker 09/11/21 Radio Frequency Design Engineer Relationship Specialty Start Date End Date Jame Hunt MD [address] [facility] [place] [place] [address] PCP - General Internal Medicine 08/15/16 Kim La, Formerly [facility] [address] [place] [address] Pharmacist Pharmacy 07/17/18 Vaughn Reeves, NIEVES [facility] [address] [place] [address] Registered Nurse Transplant Center 04/13/19 Ricki Dc MD [address] [place] [address] [place] [address] Journal Box Inspector Nephrology 01/11/20 Vicente Vargas MD [address] [place] [address] Cardiology 04/05/21 Roxie Palmer, NIEVES [address] [place], [place] [id number] [employer] Utility Worker 09/11/21 Radio Frequency Design Engineer Relationship Specialty Start Date End Date Jame Hunt MD [address] [place] [address] PCP - General Internal Medicine 08/15/16 Kim La, Formerly [facility] [address] [place] [address] Pharmacist Pharmacy 07/17/18 Vaughn Reeves RN [facility] [address] [place] [address] Registered Nurse Transplant Center 04/13/19 Ricki Dc MD [address] [place] [address] [place] [address] Journal Box Inspector Nephrology 01/11/20 Vicente Vargas MD [address] [place] [address] Cardiology 04/05/21 Roxie Palmer, NIEVES [address] [place], [place] [id number] [employer] Utility Worker 09/11/21 Radio Frequency Design Engineer Relationship Specialty Start Date End Date Jame Hunt MD [address] [place] [address] PCP - General Internal Medicine 08/15/16 GrahamKim harris, Formerly [facility] [address] [place] [address] Pharmacist Pharmacy 07/17/18 Vaughn Reeves, NIEVES [facility] [address] [place] [address] Registered Nurse Transplant Center 04/13/19 Ricki Dc MD [address] [place] [address] [place] [address] Journal Box Inspector Nephrology 01/11/20 Vicente Vargas MD [address] [place] [address] Cardiology 04/05/21 Roxie Palmer, NIEVES [address] [place], [place] [id number] [employer] Utility Worker 09/11/21 Radio Frequency Design Engineer Relationship Specialty Start Date End Date Jame Hunt MD [address] [place] [address] PCP - General Internal Medicine 08/15/16 Kim La, Formerly [facility] [address] [place] [address] Pharmacist Pharmacy 07/17/18 Vaughn Reeves, NIEVES [facility] [address] [place] [address] Registered Nurse Transplant Center 04/13/19 Ricki Dc MD [address] [place] [address] [place] [address] Journal Box Inspector Nephrology 01/11/20 Vicente Vargas MD [address] [place] [address] Cardiology 04/05/21 Roxie Palmer, NIEVES [address] [place], [place] [id number] [employer] Utility Worker 09/11/21 Radio Frequency Design Engineer Relationship Specialty Start Date End Date Jame Hunt MD [address] [place] [address] PCP - General Internal Medicine 08/15/16 GrahamKim harris, Formerly [facility] [address] [place] [address] Pharmacist Pharmacy 07/17/18 Vaughn Reeves, NIEVES [facility] [address] [place] [address] Registered Nurse Transplant Center 04/13/19 Ricki Dc MD [address] [place] [address] [place] [address] Journal Box Inspector Nephrology 01/11/20 Vicente Vargas MD [address] [place] [address] Cardiology 04/05/21 Roxie Palmer, NIEVES [address] [place], [place] [id number] [employer] Utility Worker 09/11/21 Radio Frequency Design Engineer Relationship Specialty Start Date End Date Jame Hunt MD [address] [place] [address] PCP - General Internal Medicine 08/15/16 AbhinavKim harris, Formerly [facility] [address] [place] [address] Pharmacist Pharmacy 07/17/18 Vaughn Reeves, NIEVES [facility] [address] [place] [address] Registered Nurse Transplant Center 04/13/19 Ricki Dc MD [address] [place] [address] [place] [address] Journal Box Inspector Nephrology 01/11/20 Vicente Vargas MD [address] [place] [address] Cardiology 04/05/21 Roxie Palmer, NIEVES [address] [place], [place] 6706331 [employer] Utility Worker 09/11/21 Radio Frequency Design Engineer Relationship Specialty Start Date End Date Jame Hunt MD [address] [place] [address] PCP - General Internal Medicine 08/15/16 [facility] [address] [facility] [place] [address] Pharmacist Pharmacy 07/17/18 Vaughn Reeves, NIEVES [facility] [address] [place] [address] Registered Nurse Transplant Center 04/13/19 Ricki Dc MD [address] [place] [address] [place] [address] Journal Box Inspector Nephrology 01/11/20 Vicente Vargas MD [address] [place] [address] Cardiology 04/05/21 Roxie Palmer, NIEVES [address] [place], [place] 1998131 [employer] Utility Worker 09/11/21 Radio Frequency Design Engineer Relationship Specialty Start Date End Date Jame Hunt MD [address] [place] [address] PCP - General Internal Medicine 08/15/16 [facility] [address] [place] [address] Pharmacist Pharmacy 07/17/18 Vaughn Reeves, NIEVES [facility] [address] [place] [address] Registered Nurse Transplant Center 04/13/19 Ricki Dc MD [address] [place] [address] [place] [address] Journal Box Inspector Nephrology 01/11/20 Vicente Vargas MD [address] [place] [address] Cardiology 04/05/21 Roxie Palmer, NIEVES [address] [place], [place] [phone] [employer] Utility Worker 09/11/21 Radio Frequency Design Engineer Relationship Specialty Start Date End Date Jame Hunt MD [address] [place] [address] PCP - General Internal Medicine 08/15/16 [facility] [address] [place] [address] Pharmacist Pharmacy 07/17/18 Vaughn Reeves, NIEVES [facility] [address] [place] [address] Registered Nurse Transplant Center 04/13/19 Ricki Dc MD [address] [place] [address] [place] [address] Journal Box Inspector Nephrology 01/11/20 Vicente Vargas MD [address] [place] [address] Cardiology 04/05/21 Roxie Palmer, NIEVES [address] [place], [place] [phone] [employer] Utility Worker 09/11/21 Radio Frequency Design Engineer Relationship Specialty Start Date End Date Jame Hunt MD [address] [place] [address] PCP - General Internal Medicine 08/15/16 [facility] [address] [place] [address] Pharmacist Pharmacy 07/17/18 Vaughn Reeves RN [facility] [address] [place] [address] Registered Nurse Transplant Center 04/13/19 Ricki Dc MD [address] [address] Journal Box Inspector Nephrology 01/11/20 Vicente Vargas MD [address] [place] [address] Cardiology 04/05/21 Roxie Palmer, NIEVES [address] [place], [place] [phone] [employer] Utility Worker 09/11/21 Radio Frequency Design Engineer Relationship Specialty Start [place] Jame Hunt MD [address] [place] [address] PCP - General Internal Medicine 08/15/16 [facility] [address] [place] [address] Pharmacist Pharmacy 07/17/18 Vaughn Reeves RN [facility] [address] [place] [address] Registered Nurse Transplant Center 04/13/19 Ricki Dc MD [address] [place] [address] [place] [address] Journal Box Inspector Nephrology 01/11/20 Vicente Vargas MD [address] [place] [address] Cardiology 04/05/21 Roxie Palmer, NIEVES [address] [place], [place] [id number] [employer] Utility Worker 09/11/21 Radio Frequency Design Engineer Relationship Specialty Start Date End Date Jame Hunt MD [address] [place] [address] PCP - General Internal Medicine 08/15/[address] [address] Pharmacist Pharmacy 07/17/18 Vaughn Reeves RN [facility] [address] [place] [address] Registered Nurse Transplant Center 04/13/19 Ricki Dc MD [address] [address] Journal Box Inspector Nephrology 01/11/20 Vicente Vargas MD [address] [place] [address] Cardiology 04/05/21 Roxie Palmer RN [address] [place], [place] [id number] [employer] Utility Worker 09/11/21 Radio Frequency Design Engineer Relationship Specialty Start Date End Date Jame Hunt MD [address] [place] [address] PCP - General Internal Medicine 08/15/[address] [address] Pharmacist Pharmacy 07/17/18 Vaughn Reeves RN [facility] [address] [place] [address] Registered Nurse Transplant Center 04/13/19 Ricki Dc MD [address] [address] Journal Box Inspector Nephrology 01/11/20 Vicente Vargas MD [address] [place] [address] Cardiology 04/05/21 Roxie Palmer, NIEVES [address] [place], [place] [id number] [employer] Utility Worker 09/11/21 Radio Frequency Design Engineer Relationship Specialty Start Date End Date Jame Hunt MD [address] [place] [address] PCP - General Internal Medicine 08/15/[address] [address] Pharmacist Pharmacy 07/17/18 Vaughn Reeves RN [facility] [address] [place] [address] Registered Nurse Transplant Center 04/13/19 Ricki Dc MD [address] [address] Journal Box Inspector Nephrology 01/11/20 Vicente Vargas MD [address] [place] [address] Cardiology 04/05/21 Roxie Palmer RN [address] [place], [place] [id number] [employer] Utility Worker 09/11/21 Radio Frequency Design Engineer Relationship Specialty Start Date End Date Jame Hunt MD [address] [place] [address] PCP - General Internal Medicine 08/15/[address] [address] Pharmacist Pharmacy 07/17/18 Vaughn Reeves RN [facility] [address] [place] [address] Registered Nurse Transplant Center 04/13/19 Ricki Dc MD [address] [address] Journal Box Inspector Nephrology 01/11/20 Vicente Vargas MD [address] [place] [address] Cardiology 04/05/21 Roxie Palmer, NIEVES [address] [place], [place] [id number] [employer] Utility Worker 09/11/21 Radio Frequency Design Engineer Relationship Specialty Start Date End Date Jame Hunt MD [address] [place] [address] PCP - General Internal Medicine 08/15/[address] [address] Pharmacist Pharmacy 07/17/18 Vaughn Reeves RN [facility] [address] [place] [address] Registered Nurse Transplant Center 04/13/19 Ricki Dc MD [address] [address] Journal Box Inspector Nephrology 01/11/20 Vicente Vargas MD [address] [place] [address] Cardiology 04/05/21 Roxie Palmer RN [address] [place], [place] [id number] [employer] Utility Worker 09/11/21 Radio Frequency Design Engineer Relationship Specialty Start Date End Date Jame Hunt MD [address] [place] [address] PCP - General Internal Medicine 08/15/16 [facility] [address] [place] [address] Pharmacist Pharmacy 07/17/18 Vaughn Reeves RN [facility] [address] [place] [address] Registered Nurse Transplant Center 04/13/19 Ricki Dc MD [address] [place] [address] [place] [address] Journal Box Inspector Nephrology 01/11/20 Vicente Vargas MD [address] [place] [address] Cardiology 04/05/21 Dasha Colvin, draw frame operatorWoolen Mill Utility Worker 08/07/22 Radio Frequency Design Engineer Relationship Specialty Start Date End Date Jame Hunt MD [address] [place] [address] PCP - General Internal Medicine 08/15/[address] [address] Pharmacist Pharmacy 07/17/18 Vaughn Reeves RN [facility] [address] [place] [address] Registered Nurse Transplant Center 04/13/19 Ricki Dc MD [address] [address] Journal Box Inspector Nephrology 01/11/20 Vicente Vargas MD [address] [place] [address] Cardiology 04/05/21 Dasha Colvin, draw frame operatorWoolen Mill Utility Worker 08/07/22 Radio Frequency Design Engineer Relationship Specialty Start Date End Date Jame Hunt MD [address] [place] [address] PCP - General Internal Medicine 08/15/[address] [address] Pharmacist Pharmacy 07/17/18 Vaughn Reeves RN [facility] [address] [place] [address] Registered Nurse Transplant Center 04/13/19 Ricki Dc MD [address] [place] [address] [place] [address] Journal Box Inspector Nephrology 01/11/20 Vicente Vargas MD [address] [place] [address] Cardiology 04/05/21 Dasha Colvin, draw frame operatorWoolen Mill Utility Worker 08/07/22 Radio Frequency Design Engineer Relationship Specialty Start Date End Date Jame Hunt MD [address] [place] [address] PCP - General Internal Medicine 08/15/[address] [address] Pharmacist Pharmacy 07/17/18 Vaughn Reeves RN [facility] [address] [place] [address] Registered Nurse Transplant Center 04/13/19 Ricki Dc MD [address] [address] Journal Box Inspector Nephrology 01/11/20 Vicente Vargas MD [address] [place] [address] Cardiology 04/05/21 Dasha Colvin, draw frame operatorWoolen Mill Utility Worker 08/07/22 Radio Frequency Design Engineer Relationship Specialty Start Date End Date Jame Hunt MD [address] [place] [address] PCP - General Internal Medicine 08/15/[address] [address] Pharmacist Pharmacy 07/17/18 Vaughn Reeves RN [facility] [address] [place] [address] Registered Nurse Transplant Center 04/13/19 Ricki Dc MD [address] [facility] [address] [place] [address] Journal Box Inspector Nephrology 01/11/20 Vicente Vargas MD [address] [place] [address] Cardiology 04/05/21 Sienna Miller, draw frame operatorWoolen Mill Utility Worker 09/18/22 Radio Frequency Design Engineer Relationship Specialty Start Date End Date Jame Hunt MD [address] [place] [address] PCP - General Internal Medicine 08/15/16 [facility] [address] [place] [address] Pharmacist Pharmacy 07/17/18 Vaughn eReves RN [facility] [address] [place] [address] Registered Nurse Transplant Center 04/13/19 Ricki Dc MD [address] [address] Journal Box Inspector Nephrology 01/11/20 Vicente Vargas MD [address] [place] [address] Cardiology 04/05/21 Sienna Miller, draw frame operatorWoolen Mill Utility Worker 09/18/22 Radio Frequency Design Engineer Relationship Specialty Start Date End Date Jame Hunt MD [address] [place] [address] PCP - General Internal Medicine 08/15/16 [facility] [address] [place] [address] Pharmacist Pharmacy 07/17/18 Vaughn Reeves RN [facility] [address] [place] [address] Registered Nurse Transplant Center 04/13/19 Ricki Dc MD [address] [address] Journal Box Inspector Nephrology 01/11/20 Vicente Vargas MD [address] [place] [address] Cardiology 04/05/21 Sienna Miller, draw frame operatorWoolen Mill Utility Worker 09/18/22 Radio Frequency Design Engineer Relationship Specialty Start Date End Date Jame Hunt MD [address] [place] [address] PCP - General Internal Medicine 08/15/16 Kim La, [facility] [address] [place] [address] Pharmacist Pharmacy 07/17/18 Vaughn Reeves RN [facility] [address] [place] [address] Registered Nurse Transplant Center 04/13/19 Ricki Dc MD [address] [address] Journal Box Inspector Nephrology 01/11/20 Vicente Vargas MD [address] [place] [address] Cardiology 04/05/21 Sienna Miller draw frame operatorWoolen Mill Utility Worker 09/18/22 Radio Frequency Design Engineer Relationship Specialty Start Date End Date Jame Hunt MD [address] [place] [address] PCP - General Internal Medicine 08/15/16 GrahamKim [facility]arrisThe [facility] [address] [place] [address] Pharmacist Pharmacy 07/17/18 Vaughn Reeves RN [facility] [address] [place] [address] Registered Nurse Transplant Center 04/13/19 Ricki Dc MD [address] [place] [address] Journal Box Inspector Nephrology 01/11/20 Vicente Vargas MD [address] [place] [address] Cardiology 04/05/21 Sienna Miller RN [employer] Work[employer] 09/18/22 Radio Frequency Design Engineer Relationship Specialty Start Date End Date Jame Hunt MD [address] [place] [address] PCP - General Internal Medicine 08/15/16 Kim La, [facility] [address] [place] [address] Pharmacist Pharmacy 07/17/18 Vaughn Reeves RN [facility] [address] [place] [address] Registered Nurse Transplant Center 04/13/19 Ricki Dc MD [address] [place] [address] [place] [address] Journal Box Inspector Nephrology 01/11/20 Vicente Vargas MD [address] [place] [address] Cardiology 04/05/21 Sienna Miller RN [employer] Utility Worker 09/18/22 Radio Frequency Design Engineer Relationship Specialty Start Date End Date Jame Hunt MD [address] [place] [address] PCP - General Internal Medicine 08/15/16 GrahamKim, [facility] [address] [place] [address] Pharmacist Pharmacy 07/17/18 Vaughn Reeves RN [facility] [address] [place] [address] Registered Nurse Transplant Center 04/13/19 Ricki Dc MD [address] [place] [address] [place] [address] Journal Box Inspector Nephrology 01/11/20 Vicente Vagras MD [address] [place] [address] Cardiology 04/05/21 Sienna Miller RN [employer] Utility Worker 09/18/22 Radio Frequency Design Engineer Relationship Specialty Start Date End Date Jame Hunt MD [address] [place] [address] PCP - General Internal Medicine 08/15/16 Kim La, [facility] [address] [place] [address] Pharmacist Pharmacy 07/17/18 Vaughn Reeves RN [facility] [address] [place] [address] Registered Nurse Transplant Center 04/13/19 Ricki Dc MD [address] [place] [address] [place] [address] Journal Box Inspector Nephrology 01/11/20 Vicente Vargas MD [address] [place] [address] (Fax) Cardiology 04/05/21 Sienna Miller, draw frame operatorWoolen Mill Utility Worker 09/18/22 Radio Frequency Design Engineer Relationship Specialty Start Date End Date Jame Hunt MD [address] [place] [address] PCP - General Internal Medicine 08/15/16 Kim La, [facility] [address] [place] [address] Pharmacist Pharmacy 07/17/18 Vaughn Reeves, NIEVES [facility] [address] [place] [address] Registered Nurse Transplant Center 04/13/19 Ricki Dc MD [address] [address] Journal Box Inspector Nephrology 01/11/20 Vicente Vargas MD [address] [place] [address] Cardiology 04/05/21 Sienna Miller RN [employer] Worker 09/18/22 Radio Frequency Design Engineer Relationship Specialty Start Date End Date Jame Hunt MD [address] [place] [address] PCP - General Internal Medicine 08/15/16 GrahamKim, [facility] [address] [place] [address] Pharmacist Pharmacy 07/17/18 Vaughn Reeves RN [facility] [address] [place] [address] Registered Nurse Transplant Center 04/13/19 Ricki Dc MD [address] [address] Journal Box Inspector Nephrology 01/11/20 Vicente Vargas MD [address] [place] [address] Cardiology 04/05/21 Sienna Miller draw frame operatorWoolen Mill Utility Worker 09/18/22 Radio Frequency Design Engineer Relationship Specialty Start Date End Date Jame Hunt MD [address] [place] [address] PCP - General Internal Medicine 08/15/[address] [address] Pharmacist Pharmacy 07/17/18 Vaughn Reeves RN [facility] [address] [place] [address] Registered Nurse Transplant Center 04/13/19 Ricki Dc MD [address] [address] Journal Box Inspector Nephrology 01/11/20 Vicente Vargas MD [address] [place] [address] Cardiology 04/05/21 Sienna Miller draw frame operatorWoolen Mill Utility Worker 09/18/22 Radio Frequency Design Engineer Relationship Specialty Start Date End Date Jame Hunt MD [address] [place] [address] PCP - General Internal Medicine 08/15/16 [facility] [address] [place] [address] Pharmacist Pharmacy 07/17/18 Vaughn eReves RN [facility] [address] [place] [address] Registered Nurse Transplant Center 04/13/19 Ricki Dc MD [address] [address] Journal Box Inspector Nephrology 01/11/20 Vicente Vargas MD [address] [place] [address] Cardiology 04/05/21 Sienna Miller, draw frame operatorWoolen Mill Utility Worker 09/18/22 Radio Frequency Design Engineer Relationship Specialty Start Date End Date Jame Hunt MD [address] [place] [address] PCP - General Internal Medicine 08/15/16 Kim La [address] [address] Pharmacist Pharmacy 07/17/18 Vaughn Reeves RN [facility] [address] [place] [address] Registered Nurse Transplant Center 04/13/19 Ricki Dc MD [address] [address] Journal Box Inspector Nephrology 01/11/20 Vicente Vargas MD [address] [place] [address] Cardiology 04/05/21 Sienna Miller, draw frame operatorWoolen Mill Utility Worker 09/18/22 Radio Frequency Design Engineer Relationship Specialty Start Date End Date Jame Hunt MD [address] [place] [address] PCP - General Internal Medicine 08/15/16 Kim La [facility] [address] [place] [address] Pharmacist Pharmacy 07/17/18 Vaughn Reeves RN [facility] [address] [place] [address] Registered Nurse Transplant Center 04/13/19 Ricki Dc MD [address] [address] Journal Box Inspector Nephrology 01/11/20 Vicente Vargas MD [address] [place] [address] Cardiology 04/05/21 Sienna Miller, draw frame operatorWoolen Mill Utility Worker 09/18/22 Radio Frequency Design Engineer Relationship Specialty Start Date End Date Jame Hunt MD [address] [place] [address] PCP - General Internal Medicine 08/15/16 Kim La, [facility] [address] [place] [address] Pharmacist Pharmacy 07/17/18 Vaughn Reeves RN [facility] [address] [place] [address] Registered Nurse Transplant Center 04/13/19 Ricki Dc MD [address] [address] Journal Box Inspector Nephrology 01/11/20 Vicente Vargas MD [address] [place] [address] Cardiology 04/05/21 Sienna Miller, draw frame operatorWoolen Mill Utility Worker 09/18/22 Radio Frequency Design Engineer Relationship Specialty Start Date End Date Jame Hunt MD [address] [place] [address] PCP - General Internal Medicine 08/15/16 GrahamKim harris, [facility] [address] [place] [address] Pharmacist Pharmacy 07/17/18 Vaughn Reeves, NIEVES [facility] [address] [place] [address] Registered Nurse Transplant Center 04/13/19 Ricki Dc MD [address] [place] [address] [place] [address] Journal Box Inspector Nephrology 01/11/20 Vicente Vargas MD [address] [place] [address] Cardiology 04/05/21 Roxie Palmer RN [address] [place] [address] [employer] Utility Worker 09/11/2108/06 Radio Frequency Design Engineer Relationship Specialty Start Date End Date Jame Hunt MD [address] [place] [address] PCP - General Internal Medicine 08/15/16 GrahamKim [facility] [address] [place] [address] Pharmacist Pharmacy 07/17/18 Vaughn Reeves RN [facility] [address] [place] [address] Registered Nurse Transplant Center 04/13/19 Ricki Dc MD [address] [place] [address] Journal Box Inspector Nephrology 01/11/20 Vicente Vargas MD [address] [place] [address] Cardiology 04/05/21 Sienna Miller, draw frame operatorWoolen Mill Utility Worker 09/18/22 Radio Frequency Design Engineer Relationship Specialty Start Date End Date Jame Hunt MD [address] [place] [address] PCP - General Internal Medicine 08/15/16 [facility] [address] [place] [address] Pharmacist Pharmacy 07/17/18 Vaughn Reeves, NIEVES [facility] [address] [place] [address] Registered Nurse Transplant Center 04/13/19 Ricki Dc MD [address] [address] Journal Box Inspector Nephrology 01/11/20 Vicente Vargas MD [address] [place] [address] Cardiology 04/05/21 Sienna Miller draw frame operatorWoolen Mill Utility Worker 09/18/22 Lizeth Bey MD [address] [place] [address] Primary Staff Physician Cardiology 01/10/23 Radio Frequency Design Engineer Relationship Specialty Start Date End Date Jame Hunt MD [address] [place], [place] [address] PCP - General Internal Medicine 08/15/16 Kim La, [facility] [address] [place] [address] Pharmacist Pharmacy 07/17/18 Vaughn Reeves RN [facility] [address] [place] [address] Registered Nurse Transplant Center 04/13/19 Ricki Dc MD [address] [address] Journal Box Inspector Nephrology 01/11/20 Vicente Vargas MD [address] [place] [address] (Fax) Cardiology 04/05/21 Sienna Miller, draw frame operatorWoolen Mill Utility Worker 09/18/22 Lizeth Bey MD [address] [place] [address] Primary Staff Physician Cardiology 01/10/23 Radio Frequency Design Engineer Relationship Specialty Start Date End Date Jame Hunt MD [address] [place] [address] PCP - General Internal Medicine 08/15/16 Kim La, [facility] [address] [place] [address] Pharmacist Pharmacy 07/17/18 Vaughn Reeves, NIEVES [facility] [address] [place] [address] Registered Nurse Transplant Center 04/13/19 Ricki Dc MD [address] [address] Journal Box Inspector Nephrology 01/11/20 Vicente Vargas MD [address] [place] [address] (Fax) Cardiology 04/05/21 Sienna Miller draw frame operatorWoolen Mill Utility Worker 09/18/22 Lizeth Bey MD [address] [place] [address] Primary Staff Physician Cardiology 01/10/23 Radio Frequency Design Engineer Relationship Specialty Start Date End Date Jame Hunt MD [address] [facility] [place] [address] PCP - General Internal Medicine 08/15/16 Kim La, [facility] [address] [place] [address] Pharmacist Pharmacy 07/17/18 Vaughn Reeves, NIEVES [facility] [address] [place] [address] Registered Nurse Transplant Center 04/13/19 Ricki Dc MD [address] [address] Journal Box Inspector Nephrology 01/11/20 Vicente Vargas MD [address] [place] [address] Cardiology 04/05/21 Sienna Miller RN [employer] Utility Worker 09/18/22 Lizeth Bey MD [address] [place] [address] Primary Staff Physician Cardiology 01/10/23 Radio Frequency Design Engineer Relationship Specialty Start Date End Date Jame Hunt MD [address] [place] [address] PCP - General Internal Medicine 08/15/16 Kim La, [facility] [address] [place] [address] Pharmacist Pharmacy 07/17/18 Vaughn Reeves RN [facility] [address] [place] [address] Registered Nurse Transplant Center 04/13/19 Ricki Dc MD [address] [facility] [address] [place] [address] Journal Box Inspector Nephrology 01/11/20 Vicente Vargas MD [address] [place] [address] (Fax) Cardiology 04/05/21 Sienna Miller, draw frame operatorWoolen Mill Utility Worker 09/18/22 Lizeth Bey MD [address] [place], [place] [address] Primary Staff Physician Cardiology 01/10/23 Radio Frequency Design Engineer Relationship Specialty Start Date End Date Jame Hunt MD [address] [place] [address] PCP - General Internal Medicine 08/15/16 Kim La, [facility] [address] [place] [address] Pharmacist Pharmacy 07/17/18 Vaughn Reeves, RN [facility] [address] [place] [address] Registered Nurse Transplant Center 04/13/19 Ricki Dc MD [address] [address] Journal Box Inspector Nephrology 01/11/20 Vicente Vargas MD [address] [place] [address] (Fax) Cardiology 04/05/21 Sienna Miller RN [employer] Utility Worker 09/18/22 Lizeth Bey MD [address] [place] [address] Primary Staff Physician Cardiology 01/10/23 Radio Frequency Design Engineer Relationship Specialty Start Date End Date Jame Hunt MD [facility] [place], [place] [id number] PCP - General Internal Medicine 08/15/16 Kim La, [facility] [address] [place] [address] Pharmacist Pharmacy 07/17/18 Vaughn Reeves, NIEVES [facility] [address] [place] [address] Registered Nurse Transplant Center 04/13/19 Ricki Dc MD [address] [address] Journal Box Inspector Nephrology 01/11/20 Vicente Vargas MD [address] [place] [address] Cardiology 04/05/21 Sienna Miller, draw frame operatorWoolen Mill Utility Worker 09/18/22 Lizeth Bey MD [address] [place], [place] [address] Primary Staff Physician Cardiology 01/10/23 FOR RECORDS [...] BE BASED ON THE PRIMARY CLINICAL RECORDS. [employer] provides no warranty or guarantee of the accuracy or completeness of information in this document.
[2023-04-15 23:30] VITALS: BP 86/40; PULSE 99; RESP 18; O2SAT 97
[2023-04-15 23:45] VITALS: BP 88/38; PULSE 98; RESP 19; O2SAT 98
--- OUTSIDE RECORDS SUMMARY | 2023-04-15 23:51 | XMS RPT_ITS | CCD ---
Author Name Unknown Address [address] [place] [address] Organization [facility] Care Team Providers Care Cable Television Technician Name Role Phone Geremias FOFANA, Jame Primary Care Provider [facility], Kim Unavailable Vaughn Reeves RN Unavailable Unavailable Dao FOFANA, Jayaoumoukash Unavailable Alicia FOFANA, Vicente Armenta Unavailable Spencer RN, Roxie Unavailable Jame Hunt MD Primary Care Provider [facility], Kim Unavailable Vaughn Reeves RN Unavailable Unavailable [...] VICTORIA Referring Unavailable LIZETH BEY Attending Unavailable [facility] Primary Care Unavailable SILVA PLASENCIA Referring Unavailable GANTA, JAME Primary Care Unavailable GANTA, JAME Primary Care Unavailable GANTA, JAME Primary Care Unavailable OLDERSILVA Attending Unavailable [facility] Primary Care Unavailable Allergies Allergy Classification Reported Allergen(s) Allergy Type Date of Onset Reaction(s) Facility (20 sources) Ampicillin / Sulbactam; Translations: [AMPICILLIN-SULB ACTAM] Drug Allergy 8 [facility] (20 sources) busPIRone; Translations: [BUSPIRONE HCL] Drug Allergy 8 [facility] (20 sources) Cefadroxil; Translations: [CEFADROXIL] Drug Allergy 8 [facility] (20 sources) Cephalexin; Translations: [CEPHALEXIN] Drug Allergy 9 [facility] (20 sources) Clindamycin; Translations: [CLINDAMYCIN] Drug Allergy 9 [facility] (20 sources) Lisinopril; Translations: [LISINOPRIL] Drug Allergy 5 [facility] (20 sources) Losartan; Translations: [LOSARTAN] Drug Allergy 8 [facility] Work Phone: (20 sources) Naproxen; Translations: [NAPROXEN] Drug Allergy 5 Other: See [place] (20 sources) Niacin; Translations: [NIACIN] Drug Allergy 9 [facility] (20 sources) Sulfonamides (Antibiotic); Translations: [SULFA (SULFONAMIDE ANTIBIOTICS)] Drug Intolerance 5 [facility] (11 sources) amLODIPine; Translations: [AMLODIPINE] Drug Allergy 8 [facility] (11 sources) busPIRone; Translations: [BUSPIRONE] Drug Allergy 9 [facility] (11 sources) Doxylamine; Translations: [DOXYLAMINE SUCCINATE] Drug Allergy 3 [facility] (11 sources) Omeprazole; Translations: [OMEPRAZOLE] Drug Allergy 8 Other: See [facility] (11 sources) Sulbactam; Translations: [SULBACTAM] Drug Allergy 9 [facility] (11 sources) traMADol; Translations: [TRAMADOL] Drug Allergy 3 [facility] Medications Current Medications Medication Drug Class(es) [...] Coronary atherosclerosis; Translations: [Atherosclerotic heart disease of [place] coronary artery without angina pectoris] Onset: 12-13-2020 04-04-2021 Chronic Deficiency and other anemia (2 sources) Anemia in chronic kidney disease; Translations: [Anemia in stage 4 chronic kidney disease (HCC) ([facility])] Onset: 12-17-2016 Chronic Diabetes mellitus with complications (1 source) Type 2 diabetes mellitus with hyperosmolarity without nonketotic hyperglycemic-hyperos molar coma ([facility]); Translations: [Type 2 diabetes mellitus with hyperosmolarity 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, with long-term current use of insulin ([facility])] Onset: 02-28-2021 Chronic Diabetes mellitus without complication [...] 04-15-2008 Chronic Other aftercare (1 source) Other ocean transportation intermediary (current) drug therapy; Translations: [Medication management] Onset: [...] 2 05-23-2021 Episodic Other aftercare (1 source) 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; Translations: [Type 2 [...] 116 kg Lizeth Bey MD Work Phone: [facility] 01-10-2023 14:09-0500 Diastolic blood pressure 66 mm[Hg] Lizeth Bey MD Work Phone: [facility] 01-10-2023 14:09-0500 Heart rate 85 /min Lizeth Bey MD Work Phone: [facility] 01-10-2023 14:09-0500 SaO2% (BldA) [Mass fraction] 98 % Lizeth Bey MD Work Phone: [facility] 01-10-2023 14:09-0500 Systolic blood pressure 156 mm[Hg] Lizeth Bey MD Work Phone: [facility] 01-10-2023 09:23-0500 Body height 166.4 cm Amadeo Karlos [employer] Work Phone: [facility] 01-10-2023 09:23-0500 Body temperature 98.4 [degF] Amadeo Karlos [employer] Work Phone: [facility] 01-10-2023 09:23-0500 Body weight 116.03 kg Amadeo Karlos [employer] Work Phone: [facility] 01-10-2023 09:23-0500 Diastolic blood pressure 45 mm[Hg] Amadeo Karlos [employer] Work Phone: [facility] 01-10-2023 09:23-0500 Heart rate 78 /min Amadeo Karlos [employer] Work Phone: [facility] 01-10-2023 09:23-0500 SaO2% (BldA) [Mass fraction] 100 % Amadeo Karlos [employer] Work Phone: [facility] 01-10-2023 09:23-0500 Systolic blood pressure 144 mm[Hg] Amadeo Karlos [employer] Work Phone: [facility] 01-09-2023 13:51-0500 Body height 166.4 cm Silva Older [employer] Work Phone: [facility] 01-09-2023 13:51-0500 Body temperature 97.2 [degF] Silva Older [employer] Work Phone: [facility] 01-09-2023 13:51-0500 Body weight 115.21 kg Silva Older [employer] Work Phone: [facility] 01-09-2023 13:51-0500 Diastolic blood pressure 60 mm[Hg] Silva Older [employer] Work Phone: [facility] 01-09-2023 13:51-0500 Heart rate 87 /min Silva Older [employer] Work Phone: [facility] 01-09-2023 13:51-0500 Respiratory rate 18 /min Silva Older [employer] Work Phone: [facility] 01-09-2023 13:51-0500 SaO2% (BldA) [Mass fraction] 99 % Silva Older [employer] Work Phone: [facility] 01-09-2023 13:51-0500 Systolic blood pressure 126 mm[Hg] Silva Older [employer] Work Phone: [facility] 12-27-2022 08:02-0400 Body temperature 97.59 [degF] Silva Older [employer] Work Phone: [facility] 12-27-2022 08:02-0400 Diastolic blood pressure 58 mm[Hg] Silva Older [employer] Work Phone: [facility] 12-27-2022 08:02-0400 Heart rate 65 /min Silva Older [employer] Work Phone: [facility] 12-27-2022 08:02-0400 Respiratory rate 16 /min Silva Older [employer] Work Phone: [facility] 12-27-2022 08:02-0400 SaO2% (BldA) [Mass fraction] 93 % Silva Older [employer] Work Phone: [facility] 12-27-2022 08:02-0400 Systolic blood pressure 136 mm[Hg] Silva Older [employer] Work Phone: [facility] 11-26-2022 14:10-0400 Body height 166.4 cm Ramin Denbow PA-C Work Phone: [facility] 11-26-2022 14:10-0400 Body temperature 98.29 [degF] Ramin Denbow PA-C Work Phone: [facility] 11-26-2022 14:10-0400 Body weight 114.76 kg Ramin Denbow PA-C Work Phone: [facility] 11-26-2022 14:10-0400 Diastolic blood pressure 56 mm[Hg] Ramin Denbow PA-C Work Phone: [facility] 11-26-2022 14:10-0400 Heart rate 83 /min Ramin Denbow PA-C Work Phone: [facility] 11-26-2022 14:10-0400 Respiratory rate 14 /min Ramin Denbow PA-C Work Phone: [facility] 11-26-2022 14:10-0400 SaO2% (BldA) [Mass fraction] 97 % Ramin Denbow PA-C Work Phone: [facility] 11-26-2022 14:10-0400 Systolic blood pressure 136 mm[Hg] Ramin Denbow PA-C Work Phone: [facility] 11-07-2022 12:36-0400 Diastolic blood pressure 46 mm[Hg] Erin Older [employer] Work Phone: [facility] 11-07-2022 12:36-0400 Heart rate 76 /min Erin Older [employer] Work Phone: [facility] 11-07-2022 12:36-0400 Respiratory rate 14 /min Erin Older [employer] Work Phone: [facility] 11-07-2022 12:36-0400 Systolic blood pressure 147 mm[Hg] Erin Older [employer] Work Phone: [facility] 10-27-2022 12:38-0400 Body temperature 98.8 [degF] Sandy Mendes [employer] Work Phone: [facility] 10-27-2022 12:38-0400 Body weight 114.76 kg Sandy Mendes APRN.ENTRY LEVEL FINANCE Work Phone: [facility] 10-27-2022 12:38-0400 Diastolic blood pressure 58 mm[Hg] Sandy Mendes [employer] Work Phone: [facility] 10-27-2022 12:38-0400 Heart rate 75 /min Sandy Mendes APRN.ENTRY LEVEL FINANCE Work Phone: [facility] 10-27-2022 12:38-0400 Respiratory rate 16 /min Sandy Mendes APRN.ENTRY LEV[employer] FINANCE Work Phone: [facility] 10-27-2022 12:38-0400 SaO2% (BldA) [Mass fraction] 98 % Sandy Mendes APRN.ENTRY LEVEL FINANCE Work Phone: [facility] 10-27-2022 12:38-0400 Systolic blood pressure 148 mm[Hg] Sandy Mendes [employer] Work Phone: [facility] 07-12-2022 11:23-0400 Body height 166.4 cm Annette John Paul MONTEZ [facility] 07-12-2022 11:23-0400 Body weight [address] [facility] 05-02-2022 12:30-0500 Body temperature 98.6 [degF] Silva Older [employer] Work Phone: [facility] 05-02-2022 12:30-0500 Body weight 113.4 kg Silva Older [employer] Work Phone: [facility] 05-02-2022 12:30-0500 Diastolic blood pressure 46 mm[Hg] Silva Older [employer] Work Phone: [facility] 05-02-2022 12:30-0500 Heart rate 86 /min Silva Older [employer] Work Phone: [facility] 05-02-2022 12:30-0500 Respiratory rate 16 /min Silva Older [employer] Work Phone: [facility] 05-02-2022 12:30-0500 SaO2% (BldA) [Mass fraction] 97 % Silva Older [employer] Work Phone: [facility] 05-02-2022 12:30-0500 Systolic blood pressure 98 mm[Hg] Silva Older [employer] Work Phone: [facility] 02-05-2022 11:51-0500 Body height 165.1 cm Jame Hutn MD Work Phone: [facility] 02-05-2022 11:51-0500 Body temperature 98.49 [degF] Jame Hunt MD Work Phone: [facility] 02-05-2022 11:51-0500 Body weight 110.22 kg Jame Hunt MD Work Phone: [facility] 02-05-2022 11:51-0500 Diastolic blood pressure 50 mm[Hg] Jame Hunt MD Work Phone: [facility] 02-05-2022 11:51-0500 Heart rate 89 /min Jame Hunt MD Work Phone: [facility] 02-05-2022 11:51-0500 Respiratory rate 18 /min Jame Hunt MD Work Phone: [facility] 02-05-2022 11:51-0500 SaO2% (BldA) [Mass fraction] 96 % Jame Hunt MD Work Phone: [facility] 02-05-2022 11:51-0500 Systolic blood pressure 110 mm[Hg] Jame Hunt MD Work Phone: [facility] 01-29-2022 12:59-0500 Body temperature 98.8 [degF] Silva Older [employer] Work Phone: [facility] 01-29-2022 12:59-0500 Diastolic blood pressure 68 mm[Hg] Silva Older [employer] Work Phone: [facility] 01-29-2022 12:59-0500 Heart rate 84 /min Silva Older [employer] Work Phone: [facility] 01-29-2022 12:59-0500 SaO2% (BldA) [Mass fraction] 98 % Silva Older [employer] Work Phone: [facility] 01-29-2022 12:59-0500 Systolic blood pressure 140 mm[Hg] Silva Older [employer] Work Phone: [facility] 01-01-2022 13:54-0400 Body weight 112.04 kg Silva Older [employer] Work Phone: [facility] 01-01-2022 13:54-0400 Diastolic blood pressure 68 mm[Hg] Silva Older [employer] Work Phone: [facility] 01-01-2022 13:54-0400 Heart rate 80 /min Silva Older [employer] Work Phone: [facility] 01-01-2022 13:54-0400 Respiratory rate 16 /min Silva Older [employer] Work Phone: [facility] 01-01-2022 13:54-0400 Systolic blood pressure 144 mm[Hg] Silva Older [employer] Work Phone: [facility] 12-11-2021 14:24-0400 Diastolic blood pressure 62 mm[Hg] Silva Older [employer] Work Phone: [facility] 12-11-2021 14:24-0400 Heart rate 68 /min Silva Older [employer] Work Phone: [facility] 12-11-2021 14:24-0400 Respiratory rate 16 /min Silva Older [employer] Work Phone: [facility] 12-11-2021 14:24-0400 Systolic blood pressure 132 mm[Hg] Silva Older [employer] Work Phone: [facility] 10-20-2021 08:55-0400 Body weight 114.76 kg Jaci Zurawick [employer] FINANCE Work Phone: [facility] 10-20-2021 08:55-0400 Diastolic blood pressure 50 mm[Hg] Jaci Zurawick [employer]EV[employer] FINANCE Work Phone: [facility] 10-20-2021 08:55-0400 Heart rate 68 /min Jaci Zurawick [employer] FINANCE Work Phone: [facility] 10-20-2021 08:55-0400 Respiratory rate 18 /min Jaci Zurawick [employer] FINANCE Work Phone: [facility] 10-20-2021 08:55-0400 Systolic blood pressure 138 mm[Hg] Jaci Zurawick [employer]EV[employer] FINANCE Work Phone: [facility] 09-28-2021 12:35-0400 Diastolic blood pressure 66 mm[Hg] Silva Older [employer] Work Phone: [facility] 09-28-2021 12:35-0400 Heart rate 72 /min Silva Older [employer] Work Phone: [facility] 09-28-2021 12:35-0400 Respiratory rate 16 /min Silva Older [employer] Work Phone: [facility] 09-28-2021 12:35-0400 Systolic blood pressure 140 mm[Hg] Islva Older [employer] FINANCE Work Phone: [facility] 08-31-2021 08:32-0400 Body weight 112.95 kg Silva Older [employer] Work Phone: [facility] 08-31-2021 08:32-0400 Diastolic blood pressure 60 mm[Hg] Silva Older [employer] Work Phone: [facility] 08-31-2021 08:32-0400 Heart rate 75 /min Silva Older [employer] FIN[employer] Work Phone: [facility] 08-31-2021 08:32-0400 Respiratory rate 16 /min Silva Older [employer] FINANCE Work Phone: [facility] 08-31-2021 08:32-0400 SaO2% (BldA) [Mass fraction] 98 % Silva Older [employer] Work Phone: [facility] 08-31-2021 08:32-0400 Systolic blood pressure 130 mm[Hg] Silva Older [employer] FINANCE Work Phone: [facility] 08-25-2021 08:22-0400 Body weight 113.4 kg Silva Older [employer]ANCE Work Phone: [facility] 08-25-2021 08:22-0400 Diastolic blood pressure 62 mm[Hg] Silva Older [employer] Work Phone: [facility] 08-25-2021 08:22-0400 Heart rate 72 /min Silva Older [employer] Work Phone: [facility] 08-25-2021 08:22-0400 Respiratory rate 16 /min Silva Older [employer] FINANCE Work Phone: [facility] 08-25-2021 08:22-0400 Systolic blood pressure 134 mm[Hg] Silva Older [employer] Work Phone: [facility] 08-14-2021 12:01-0400 Body height 165.1 cm Jame Hunt MD Work Phone: [facility] 08-14-2021 12:01-0400 Body temperature 97.11 [degF] Jame Hunt MD Work Phone: [facility] 08-14-2021 12:01-0400 Diastolic blood pressure 44 mm[Hg] Jame Hunt MD Work Phone: [facility] 08-14-2021 12:01-0400 Heart rate 74 /min Jame Hunt MD Work Phone: [facility] 08-14-2021 12:01-0400 Respiratory rate 16 /min Jame Hunt MD Work Phone: [facility] 08-14-2021 12:01-0400 SaO2% (BldA) [Mass fraction] 100 % Jame Hunt MD Work Phone: [facility] 08-14-2021 12:01-0400 Systolic blood pressure 114 mm[Hg] Jame Hunt MD Work Phone: [facility] 07-03-2021 10:24-0400 Body weight 112.95 kg Josse Lance [employer]T [employer] 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 Work Phone: [facility] 07-03-2021 10:24-0400 Diastolic blood pressure 56 mm[Hg] Josse Lance [employer].BELT AND 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 Work Phone: [facility] 07-03-2021 10:24-0400 Heart rate 76 /min Josse Lance [employer].BELT AND 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 Work Phone: [facility] 07-03-2021 10:24-0400 Respiratory rate 16 /min Josse Lance [employer].BELT AND 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 Work Phone: [facility] 07-03-2021 10:24-0400 Systolic blood pressure 122 mm[Hg] Josse Lance [employer].BELT AND 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 Work Phone: [facility] Encounters Encounter Date Encounter Type Care Provider Facility Start: 02-20-2023 End: 02-21-2023 ambulatory [facility] OLDER Facility:[facility] Start: 02-20-2023 End: 02-21-2023 [facility] Facility:[facility] Start: 02-11-2023 Telephone encounter Dasha Miller RN (R n) [facility] Procedures Date Procedure Procedure Detail Performing Clinician Start: 01-09-2023 [employer] COVI D-19 VACCINE (2022- SEASON) AGE 12+ YR Silva Older [employer] Work Phone: Start: 11-07-2022 Dxa bone density ximena dy 1/> sites axial skel Silva Older [employer] Work Phone: Start: 07-12-2022 Antibody screen JAME HUNT Plan of Treatment Date Care Activity Detail Author Start: 12-31-2028 Urine microalbumin profile [facility] Start: 09-13-2027 Colonoscopy COLONOSCOPY [facility] Start: 09-13-2027 COLORECTAL CANCER SCREENING COLORECTAL CANCER SCREENING [facility] Start: 11-07-2025 PNEUMOCOCCAL (4 - PP SV23 if available, else PCV20) PNEUMOCOCCAL (4 - PPSV23 if available, else PCV20) [facility] Start: 11-07-2025 PNEUMOCOCCAL (4 - PP SV23 or PCV20) PNEUMOCOCCAL (4 - PPSV23 or PCV20) [facility] Start: 11-07-2025 PNEUMOCOCCAL: 65+ (4 - PPSV23 if available, else PCV20) PNEUMOCOCCAL: 65+ (4 - PPSV23 if available, else PCV20) [facility] Start: 11-07-2025 PNEUMOCOCCAL: 65+ (4 - PPSV23 or PCV20) PNEUMOCOCCAL: 65+ (4 - PPSV23 or PCV20) [facility] Start: 01-10-2024 Annual PCP Team V Belt Curer braeden Disease Visit Annual PCP Team Chronic Disease Visit [facility] Start: 01-10-2024 BP Controlled (<130/80) BP Controlle d (<130/80) [facility] Start: 01-10-2024 RSV Vaccine (1 - 1-d ose 60+ series) RSV Vaccine (1 - 1-dose 60+ series) [facility] Immunizations Immunization Date Immunization Notes Care Provider Guido baptiste 01-09-2023 COVID-19 vaccine, ag e 12+ yr, season ([employer]) Silva Plasencia [employer] Work Phone: [facility] 12-09-2022 influenza, injectabl e, quadrivalent, preservative free Kel Victoria MD Work Phone: [facility] 10-15-2022 Hepatitis B vaccine (recombinant), CpG adjuvanted Jame Hunt MD Work Phone: [facility] 08-13-2022 Hepatitis B vaccine (recombinant), CpG jonathan Hunt MD Work Phone: [facility] 07-09-2022 Hepatitis B vaccine (recombinant), CpG adjuvantkit Hunt MD Work Phone: [facility] 06-11-2022 Hepatitis B vaccine (recombinant), CpG adjuvantkit Hunt MD Work Phone: [facility] 01-15-2022 pneumococcal (PCV20) vaccine, 20 valent (PREVNAR 20) Jame Hunt MD Work Phone: [facility] 11-25-2021 COVID-19 booster vaccine, age 12+ yr, bivalent ([employer]) Jame Hunt MD Work Phone: [facility] 11-20-2021 influenza, injectabl e, quadrivalent, contains preservative Jame Hunt MD Work Phone: [facility] 11-20-2021 influenza, injectabl e, quadrivalent, preservative free Jame Hunt MD Work Phone: [facility] 11-20-2021 influenza virus vacc ine, unspecified formulation Jame Hunt MD Work Phone: [facility] 10-20-2021 influenza, seasonal, injectable Jame Hunt MD Work Phone: [facility] 10-11-2021 Hepatitis B vaccine (recombinant), CpG jonathan Hunt MD Work Phone: [facility] 09-11-2021 zoster vaccine recombinant Kim [facility] Work Phone: [facility] 08-15-2021 Hepatitis B vaccine (recombinant), CpG jonathan Hunt MD Work Phone: [facility] 07-10-2021 Hepatitis B vaccine (recombinant), CpG jonathan Hunt MD Work Phone: [facility] 06-15-2021 zoster vaccine recombinant Kim [facility] Work Phone: [facility] 06-12-2021 Hepatitis B vaccine (recombinant), CpG jonathan Hunt MD Work Phone: [facility] 05-02-2021 COVID-19 vaccine, ag e 12+ yr (PFIZER-BIONTECH - CARNEY TOP) Kim [facility] Work Phone: [facility] Work Phone: 03-13-2021 Hepatitis B vaccine (recombinant), CpG adjuvanted Jame Hunt MD Work Phone: [facility] 01-09-2021 Hepatitis B vaccine (recombinant), CpG adjuvanted Jame Hunt MD Work Phone: [facility] 12-30-2020 influenza, seasonal, injectable, preservative free Renetta Mendez RN [facility] 12-12-2020 Hepatitis B vaccine (recombinant), CpG adjuvanted Jame Hunt MD Work Phone: [facility] 11-14-2020 Hepatitis B vaccine (recombinant), CpG adjuvanted Jame Hunt MD Work Phone: [facility] 11-14-2020 pneumococcal polysaccharide vaccine, 23 valent Jame Hunt MD Work Phone: [facility] 11-07-2020 hepatitis B vaccine, adult dosage Jame Hunt MD Work Phone: [facility] Work Phone: 11-07-2020 pneumococcal polysaccharide vaccine, 23 valent Jame Hunt MD Work Phone: [facility] Work Phone: 11-01-2020 influenza, injectabl e, quadrivalent, contains preservative Jame Hunt MD Work Phone: [facility] Work Phone: 11-01-2020 Seasonal, quadrivale nt, recombinant, injectable influenza vaccine, preservative free Renetta Mendez RN [facility] 10-31-2020 influenza virus vacc ine, unspecified formulation Renetta Mendez RN [facility] 06-02-2020 COVID-19 original vaccine, age 12+ yr, monovalent (PFIZER-BIONTECH - PURPLE TOP) Renetta Mendez RN [facility] 06-01-2020 COVID-19 vaccine, ag e 12+ yr ([employer] - PURPLE TOP) Jame Hunt MD Work Phone: [facility] 12-31-2019 influenza, injectabl e, quadrivalent, preservative free Jame Hunt MD Work Phone: [facility] 12-31-2018 influenza, injectabl e, quadrivalent, contains preservative Jame Hunt MD Work Phone: [facility] 12-31-2018 tetanus and diphther ia toxoids, adsorbed, preservative free, for adult use (5 Lf of tetanus toxoid and 2 Lf of diphtheria toxoid) Jame Hunt MD Work Phone: [facility] 12-16-2017 influenza, seasonal, injectable, preservative free Renetta Mendez RN [facility] 12-08-2017 influenza virus vacc ine, unspecified formulation Renetta Mendez RN [facility] 12-07-2016 pneumococcal conjuga te vaccine, 13 valent Jame Hunt MD Work Phone: [facility] Work Phone: 11-30-2016 influenza, seasonal, injectable Jame Hunt MD Work Phone: [facility] 05-28-2016 influenza, seasonal, injectable, preservative free Renetta Mendez RN [facility] 05-28-2016 pneumococcal polysaccharide vaccine, 23 valent Renetta Mendez RN [facility] 01-02-2016 influenza, seasonal, injectable Jame Hunt MD Work Phone: [facility] 01-02-2016 influenza, seasonal, injectable, preservative free Renetta Mendez RN [facility] 12-24-2014 influenza, injectabl e, quadrivalent, preservative free Jame Hunt MD Work Phone: [facility] 12-21-2014 influenza, seasonal, injectable, preservative free Renetta Mendez RN [facility] 12-03-2013 influenza, seasonal, injectable, preservative free Renetta Mendez RN [facility] 12-03-2013 pneumococcal polysaccharide vaccine, 23 valent Jame Hunt MD Work Phone: [facility] 12-03-2013 pneumococcal vaccine , unspecified formulation Renetta Mendez RN [facility] 12-08-2008 influenza virus vacc ine, unspecified formulation Jame Hunt MD Work Phone: [facility] 11-24-2008 pneumococcal polysaccharide vaccine, 23 valent Kim [facility] Work Phone: [facility] Work Phone: 05-04-2008 haemophilus influenz ae type b vaccine, PRP-T conjugate Jame Hunt MD Work Phone: [facility] 05-04-2008 meningococcal polysaccharide vaccine (MPSV4) Jame Hunt MD Work Phone: [facility] Work Phone: 05-04-2008 pneumococcal polysaccharide vaccine, 23 valent Jame Hunt MD Work Phone: [facility] Work Phone: 02-19-2008 hepatitis A and hepatitis B vaccine Jame Hunt MD Work Phone: [facility] 02-19-2008 tetanus toxoid, redu rios diphtheria toxoid, and acellular pertussis vaccine, adsorbed Jame Hunt MD Work Phone: [facility] 12-11-2007 influenza virus vacc ine, unspecified formulation Jame Hunt MD Work Phone: [facility] 12-31-2006 influenza virus vacc ine, unspecified formulation Jame Hunt MD Work Phone: [facility] Payers Date Payer Category Payer Medicaid [employer]ICAID [id number] 2021-Present [phone] [address] [place] [address] Medicaid [id number] 2021 Medicaid [id number] 2021 Medicaid [id number] 2021 Medicaid [id number] 2021 Medicaid [id number] 2021 Medicare HUMANA MEDICARE HUMANA GOLD PLUS [id number] 2021-Present [phone] [address] [address] [place] [address] O [id number] 2021 Medicare HUMANA MEDICARE HUMANA GOLD PLUS [id number] 2021-Present [phone] [address] [address] [place] [address] O [id number] 2021 Private Health Insurance [id number] Social History Date Type Detail Facility Start: 10-04-2016 End: 02-05-2022 Tobacco smoking status NHIS Never smoked tobacco [facility] Start: 10-04-2016 End: 02-05-2022 Tobacco use and exposure Smokeless tobacco non-user [facility] Start: 04-05-2021 End: 01-10-2023 Alcohol intake Current non-drinker of alcohol (finding) [facility] Start: 05-22-2021 End: 01-22-2022 History SDOH Alcohol Frequency 1 [facility] Start: 05-22-2021 End: 01-22-2022 History SDOH Alcohol Std Drinks 98 [facility] Start: 05-22-2021 End: 01-22-2022 History SDOH Social Connections Phone 5 [facility] Start: 05-22-2021 End: 01-22-2022 History SDOH Social Connections Get Together 2 [facility] Start: 05-22-2021 End: 01-22-2022 History SDOH Social Connections Living 3 [facility] Start: 05-22-2021 History SDOH Financial 4 [facility] Start: 01-11-2019 Education 12 [facility] Start: 09-14-2016 End: 02-05-2022 Tobacco Comment Parents both smoked in childhood home. No household ETS since. [facility] Start: 1955 Sex Assigned At Female [facility] Work Phone: Start: 05-13-2021 End: 02-05-2022 Exposure to SARS-CoV-2 (event) Not sure [facility] Work Phone: Start: 08-15-2021 End: 08-25-2021 Exposure to SARS-CoV-2 (event) Unable to assess [facility] History of tobacco use Passive smoker [facility] Start: 01-22-2022 History SDOH Alcohol Std Drinks 0 [facility] Start: 01-22-2022 End: 07-12-2022 History of Social function [facility] Start: 01-22-2022 End: 07-12-2022 Social connection and isolation panel [facility] Do you belong to any clubs or organizations such as jain groups, unions, fraternal or athletic groups, or school groups? No [facility] Are you now , , , , never or living with a partner? [facility] How often to you hav e a drink containing alcohol? Never [facility] How many standard dr inks containing alcohol do you have on a typical day? Patient does not drink [facility] How hard is it for y ou to pay for the very basics like food, housing, medical care, and heating Somewhat hard [facility] Do you feel stress - tense, restless, nervous, or anxious, or unable to sleep at night because your mind is troubled all the time - these days [OSQ] To some extent [facility] (I/We) worried whedonald er (my/our) food would run out before (I/we) got money to buy more. Sometimes true [facility] The food that (I/we) bought just didn't last, and (I/we) didn't have money to get more. Never true [facility] Start: 09-05-2016 Gender identity Identifies as female gender (finding) [facility] Work Phone: Start: 09-05-2016 Sexual orientation Heterosexual (finding) [facility] Work Phone: Medical Equipment Procedure Code [...] WEIGHT - 109.5 - 02/11/23 scanned into RF nano. Haritha Chan documented in this encounter [facility] 02-11-2023 Miscellaneous Notes Called patient to see how they were doing with weight loss. Asked patient to have dialysis center fax a new dry weight to me. In addition told her that I would touch base with her at the end of March with the hopes of getting her presented. Dasha Miller RN February 11, 2023 1:45 PM documented in this encounter [facility] 01-22-2023 Miscellaneous Notes REMEDIOS 01/09/23 NOV [...] sent. Aleyda Cary documented in this encounter [facility] 01-17-2023 Miscellaneous Notes Spoke with patient who indicated she was cleared by Dr. Bey at [facility] for her EGD. Patient indicated she does not need appointment with Dr. Vargas and wishes to cancel at this time. Will get Dr. Bey to complete EGD clearance form. Appointment cancelled per patient's request. Dasha Hu, RN Patient states that she had an appointment at [facility] with Dr Lerner for EGD but [...] is confused. Advised patient that maybe her engineer automated equipment is sending her for cardiology clearance before the procedure. Patient states that she just had a cardiology clearance on 01/10/[address] Bey for a liver transplant. Patient is not sure why she needs to be seen by Dr. Vargas now. Please contact patient back at [phone]. documented in this encounter [facility] 01-17-2023 History of Present illness Narrative [facility] Telephonic Outreach Provider Action/FYI Contacted for: Routine [...] daily weight at home? No Based on well surveying engineer, the following disposition is advised: No symptoms or symptoms present, not severe. Routed to: No Action Needed NOELLE Education Provided this Outreach: No Sienna Miller RN January 17, 2023 10:50 AM documented in this encounter [facility] 01-14-2023 Miscellaneous Notes Patient has been [...] Nell Lemons LPN. documented in this encounter [facility] 01-10-2023 Miscellaneous Notes Clearance form received and scanned into chart. Patient has appt with Dr. Vargas on 01/23 at 2:20. Lucrecia Villatoro documented in this encounter [facility] 01-10-2023 Note [facility] 01-10-2023 History of Present illness Narrative Images from the original note were not included. 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 No colitis. Poor rectal sphincter tone. Referred to Oriana Newberry. COLONOSCOPY FLX DX W/COLLJ SPEC WHEN PFRMD 11/29/2011 [facility] Main /Dr. Anderson COLONOSCOPY FLX DX W/COLLJ SPEC WHEN PFRMD 07/2011 Janneth COLONOSCOPY FLX DX W/COLLJ SPEC WHEN PFRMD 09/2011 Dr. Lagunas [facility] ESOPHAGOGASTRODUODENOSCOPY TRANSORAL DIAGNOSTIC 12/2009 [facility] Janneth ESOPHAGOGASTRODUODENOSCOPY TRANSORAL DIAGNOSTIC 12/2010 [facility] Janneth FISTULA HERNIA REPAIR HX 12/2008 [...] [place] Stroke Father Ischemic Heart Disease Father [place] age 70s Diabetes Mother age 76 other [...] mouth once daily. Blood-Glucose Meter,Continuous (DEXCOM G7 AIRBRUSH ARTIST) misc Use to check blood sugar [...] by others. CONTACT INFORMATION: Lizeth Bey MD, [facility] Section of Clinical Cardiology [place] [facility] Department of Cardiovascular Medicine [facility] [place] [facility] Desk J2-4 [facility] [place] [address] Office - [phone] extension [phone] Office Appointments: [phone] extension [phone] Voice recognition software was used in the creation of this document. There may be unintended errors in spelling, grammar, syntax or punctuation present. documented in this encounter [facility] 01-10-2023 Note [facility] 01-10-2023 History of Present illness Narrative NAME: Christina Guerrier [facility] NO: [id number] REFERRING PHYSICIAN: Kel Victoria PRESENTING COMPLAINT: Pre-kidney [...] 2023 5:39 PM documented in this encounter [facility] 01-09-2023 Note [facility] 01-09-2023 History of Present illness Narrative CC: Patient presents with: ED Follow-up HPI Christina Guerrier is a 67 year old female who presents today for ER follow-up. Facility: [facility] Er on both 12/26 and 12/31 for abdominal pain and vomiting. Was last seen in this office 12/27 for first ER visit. Had been having difficulty regulating blood sugars with her inability to eat and her insulin. Is on a lower dose of insulin at this time and denies any low blood sugars. Has an EGD in a few weeks at [facility] with Dr. Lerner as there is [...] she is requesting a refill on her [place] as it is flaring up and with [...] FLX DX W/COLLJ SPEC WHEN PFRMD 11/29/2011 [facility] Main /Dr. Anderson COLONOSCOPY FLX DX W/COLLJ SPEC WHEN PFRMD 07/2011 Janneth COLONOSCOPY FLX DX W/COLLJ SPEC WHEN PFRMD 09/2011 Dr. Lagunas [facility] ESOPHAGOGASTRODUODENOSCOPY TRANSORAL DIAGNOSTIC 12/2009 [facility] Janneth ESOPHAGOGASTRODUODENOSCOPY TRANSORAL DIAGNOSTIC 12/2010 [facility] Janneth FISTULA HERNIA REPAIR HX 12/2008 [...] mouth once daily. Blood-Glucose Meter,Continuous (DEXCOM G7 AIRBRUSH ARTIST) [facility] Use to check blood sugar at least [...] CA Stroke Father Ischemic Heart Disease Father [place] age 70s Diabetes Mother age 76 other [...] Aged Out DATA REVIEWED: Outside chart from [facility] reviewed. ASSESSMENT/PLAN: 1. Epigastric pain - [...] Silva Plasencia APRN.CNP documented in this encounter [facility] 01-09-2023 Miscellaneous Notes Labs faxed to Dr Lerner office. Labs are in process Pt needs lab results that were drawn on 01/08/2023 to be faxed to Dr. Lerner/Dr. Maurer Phone # [phone] documented in this encounter [facility] 01-08-2023 Miscellaneous Notes Samanta with [facility] calls to request most recent labs be faxed to: [phone]. Results faxed as requested. Monica Carter LPN documented in this encounter [facility] 01-04-2023 Note [facility] 01-04-2023 History of Present illness Narrative Images from the original note were not included. Primary Care Pharmacy Visit CC (Reason for Consult): (E11.00, Z79.4) Type 2 diabetes mellitus with hyperosmolarity 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, with long-term current use of insulin ([facility]) Goal(s): A1c < 8% Last Collaborating Physician Visit: 12/27/22 Christina Guerrier is a 67 year old female presenting for follow up visit telephone call. Patient consents to pharmacy collaborative practice agreement. . At visit with ENTRY LEVEL FINANCE on 12/26 the following changes were made: instructed Decrease lantus to half dose if not consistently eating. Do NOT take the 25mg novolog if not eating and go by sliding scale only. At last visit with ENTRY LEVEL FINANCE on 12/27, was instructed that she may [...] finish the cans) Exercise: limited GLYCEMIC CONTROL: [employer] CLARITY SHARE CODE - [id number] Past medical history reviewed. MEDICATIONS: Adherence: denies [...] once daily. 270 tablet 3 Blood-Glucose Meter,Continuous (DEXBag Borrow or Steal G7 AIRBRUSH ARTIST) [facility] Use to check blood sugar at least [...] with long-term current use of insulin ([facility]) - ICD9: 250.20, V58.67, ICD10: E11.00, Z79.4 [...] was 20 minutes. documented in this encounter [facility] 12-27-2022 Note [facility] 12-27-2022 History of Present illness Narrative CC: Patient presents with: Recheck: ER follow up, abdominal pain HPI Christina Guerrier is a 67 year old female who presents today for ER follow-up. 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 No colitis. Poor rectal sphincter tone. Referred to Oriana Newberry. COLONOSCOPY FLX DX W/COLLJ SPEC WHEN PFRMD 11/29/2011 [facility] Main /Dr. Anderson COLONOSCOPY FLX DX W/COLLJ SPEC WHEN PFRMD 07/2011 Janneth COLONOSCOPY FLX DX W/COLLJ SPEC WHEN PFRMD 09/2011 Dr. Lagunas [facility] ESOPHAGOGASTRODUODENOSCOPY TRANSORAL DIAGNOSTIC 12/2009 [facility] Janneth ESOPHAGOGASTRODUODENOSCOPY TRANSORAL DIAGNOSTIC 12/2010 [facility] Janneth FISTULA HERNIA REPAIR HX 12/2008 [...] tablets by mouth once daily. Blood-Glucose Meter,Continuous (DEXBag Borrow or Steal G7 AIRBRUSH ARTIST) [facility] Use to check blood sugar at least [...] CA Stroke Father Ischemic Heart Disease Father [place] age 70s Diabetes Mother age 76 other [...] Aged Out DATA REVIEWED: Outside chart from [facility] reviewed. ASSESSMENT/PLAN: 1. Nausea - ICD9: [...] Silva Plasencia APRN.CNP documented in this encounter [facility] 12-26-2022 Note [facility] 12-24-2022 Miscellaneous Notes Letter sent to patient ness per her request. Please print and process Patient calls to request a letter for [employer] [facility] [employer] [facility]. Patient reports that she receives gas vouchers to get to doctor appointments here and at main campus. The letter needs to state that patient is an established patient with the [facility] and needs to be addressed to Poly Shafer at [employer] [facility] [employer]. Patient requests it be uploaded to when completed. Janelle Crocker RN documented in this encounter [facility] 12-20-2022 Note [facility] 12-20-2022 History of Present illness Narrative [...] daily weight at home? No Based on well surveying engineer, the following disposition is advised: No symptoms or symptoms present, not severe. Routed to: No Action Needed NOELLE Education Provided this Outreach: No Sienna Miller, NIEVES December 20, 2022 1:27 PM documented in this encounter [facility] 12-03-2022 Note [facility] 11-26-2022 Note [facility] 11-26-2022 Note [facility] 11-26-2022 History of Present illness Narrative [...] CKD (chronic kidney disease) Dialysis M/W/F [facility] COPD (chronic obstructive pulmonary disease) (HCC) Diabetes [...] W/COLLJ SPEC WHEN PFRMD 09/2011 Dr. Lagunas [facility] ESOPHAGOGASTRODUODENOSCOPY TRANSORAL DIAGNOSTIC 12/2009 [facility] Janneth ESOPHAGOGASTRODUODENOSCOPY TRANSORAL DIAGNOSTIC 12/2010 [facility] Janneth FISTULA HERNIA REPAIR HX 12/2008 [...] tablets by mouth once daily. Blood-Glucose Meter,Continuous (DEXBag Borrow or Steal G7 AIRBRUSH ARTIST) [facility] Use to check blood sugar at least four (4) times daily. Blood-Glucose Sensor ([employer] G7 SENSOR) brady Apply new sensor every [...] [place] Stroke Father Ischemic Heart Disease Father [place] age 70s Diabetes Mother age 76 other [...] therapy advised. Pain control addressed (already has [place] rx from hip pain appt) Will be [...] Ramin Mack PA-C documented in this encounter [facility] 11-22-2022 Note [facility] 11-22-2022 History of Present illness Narrative [...] daily weight at home? No Based on well surveying engineer, the following disposition is advised: No symptoms or symptoms present, not severe. Routed to: No Action Needed NOELLE Education Provided this Outreach: No Sienna Miller RN November 22, 2022 10:32 AM documented in this encounter [facility] 11-20-2022 Miscellaneous Notes REMEDIOS 11/07/22 NOV [...] Litzy Esparza Pss documented in this encounter [facility] 11-07-2022 Note [facility] 11-07-2022 Note [facility] 11-07-2022 Note [facility] 11-07-2022 History of Present illness Narrative [...] night and keeping her awake Treated with [place], with minor relief of symptoms. REVIEW OF [...] W/COLLJ SPEC WHEN PFRMD 09/2011 Dr. Lagunas [facility] ESOPHAGOGASTRODUODENOSCOPY TRANSORAL DIAGNOSTIC 12/2009 [facility] Janneth ESOPHAGOGASTRODUODENOSCOPY TRANSORAL DIAGNOSTIC 12/2010 [facility] Janneth FISTULA HERNIA REPAIR HX 12/2008 [...] mouth once daily. Blood-Glucose Meter,Continuous (DEXCOM G7 AIRBRUSH ARTIST) misc Use to check blood sugar [...] each sensor change. Blood-Glucose Meter,Continuous (DEXCOM G6 AIRBRUSH ARTIST) misc Use to check blood sugar [...] CA Stroke Father Ischemic Heart Disease Father [place] age 70s Diabetes Mother age 76 other [...] activity was identified. 11/07/2022 by Erin Plasencia APRN.ENTRY LEVEL FINANCE Follow-up and further recommendations pending results of [...] Erin Plasencia APRN.CNP documented in this encounter [facility] 11-07-2022 History of Present illness Narrative [...] 2022 11:14 AM documented in this encounter [facility] 10-28-2022 Miscellaneous Notes Pt was notified of the results. Pt verbalized understanding. Nasra Becerril MA Please advise patient that test results came back negative. Rash is not shingles. Should follow-up if signs and symptoms seem to be getting worse not better. documented in this encounter [facility] 10-27-2022 Note [facility] 10-27-2022 History of Present illness Narrative [...] history is provided by the patient. No dry wall plasterer was used. Rash Review of Systems Constitutional: [...] CKD (chronic kidney disease) Dialysis M/W/F [facility] COPD (chronic obstructive pulmonary disease) (HCC) Diabetes mellitus without mention of complication Diabetic polyneuropathy (HCC) 02/04/2017 Disorder of thyroid DVT (deep venous thrombosis) (HCC) Esophageal reflux Hammer toes, bilateral 11/30/2016 History of transfusion Hypertension Incisional hernia 12/30/2008 Liver replaced by transplant ([facility]) 2008 - Cirrhosis s/p OLT 2008 - [...] FLX DX W/COLLJ SPEC WHEN PFRMD 07/2011 Jannte[facility] COLONOSCOPY FLX DX W/COLLJ SPEC WHEN PFRMD 09/2011 Dr. Lagunas [facility] ESOPHAGOGASTRODUODENOSCOPY TRANSORAL DIAGNOSTIC 12/2009 [facility] Janneth ESOPHAGOGASTRODUODENOSCOPY TRANSORAL DIAGNOSTIC 12/2010 [facility] Janneth FISTULA HERNIA REPAIR HX 12/2008 incisional hernia repair LVR ALTRNSPLJ ORTHOTOPIC PRTL/WHL DON ANY AGE 0507/2008 PAST SURGICAL HISTORY OF 1989 left ovary/cyst removal PAST SURGICAL HISTORY OF 1974 all teeth removed SKIN BIOPSY HX TOTAL ABDOMINAL HYSTERECT W/WO RMVL TUBE OVARY 1998 Hysterectomy, FRASNISCA -for endometrial cancer VAGINAL HYSTERECTOMY VASCULAR SURGERY [...] mouth once daily. Blood-Glucose Meter,Continuous (DEXCOM G7 AIRBRUSH ARTIST) [facility] Use to check blood sugar at least [...] each sensor change. Blood-Glucose Meter,Continuous (DEXCOM G6 AIRBRUSH ARTIST) mis Use to check blood sugar at least four (4) times daily. Blood-Glucose Sensor (DEXCOM G6 SENSOR) brady Apply new sensor every ten (10) days to abdomen. FAMILY HISTORY Problem Relation Age of Onset Cancer Father age 73 lung CA Stroke Father Ischemic Heart Disease Father [place] age 70s Diabetes Mother age 76 other [...] Sandy Mendes APRN.NATHALY documented in this encounter [facility] 10-26-2022 Note [facility] 10-26-2022 History of Present illness Narrative [facility] Telephonic Outreach Provider Action/FYI Contacted for: Routine [...] daily weight at home? No Based on well surveying engineer, the following disposition is advised: No symptoms or symptoms present, not severe. Routed to: No Action Needed NOELLE Education Provided this Outreach: No Sienna Miller RN October 26, 2022 1:27 PM documented in this encounter [facility] 10-26-2022 Note [facility] 10-23-2022 Miscellaneous Notes Pt. ret'd call and was r/s for 10/26/22. 1st attempt to reschedule. Called and lmom. Primary Care Pharmacy Rescheduling Outreach Call center, please contact patient and reschedule telephone and virtual visit for Diabetes management within ~4 week(s). (Visit length: 30 minutes) Thank you, Charlotte Gurrola RPh 10/22/2022 4:11 PM documented in this encounter [facility] 10-22-2022 Note [facility] 09-28-2022 Note [facility] 09-19-2022 Miscellaneous Notes Leighann from patients dialysis center calls in requesting to speak with a coordinator regarding her restrictions. Patient is saying that she cannot have any vinegar and they are questioning the reasoning why. She can be reached at [phone]. documented in this encounter [facility] 08-31-2022 Note [facility] 08-29-2022 Note [facility] 08-29-2022 Note [facility] 08-29-2022 History of Present illness Narrative [...] pounds in a week? No Based on well surveying engineer, the following disposition is advised: No symptoms or symptoms present, not severe. Routed to: No Action Needed NOELLE Education Provided this Outreach: No Dasha Colvin RN August 29, 2022 4:27 PM documented in this encounter [facility] 08-29-2022 Miscellaneous Notes Addended by: ERIN PLASENCIA on: 08/29/2022 05:36 PM Modules accepted: Orders documented in this encounter [facility] 08-28-2022 Note [facility] 08-28-2022 History of Present illness Narrative [facility] Telephonic Outreach Provider Essie/HARIKA Made call #1. Someone picked up phone and hung it up. End outreach Contacted for: Routine Telephonic Outreach Contact made with patient: No, left message. Someone answered and hung up. Dasha Colvin RN August 28, 2022 2:50 PM documented in this encounter [facility] 08-07-2022 Note [facility] 08-07-2022 History of Present illness Narrative [...] made: No medication changes made. At last [employer] message on 07/24/22, lowered insulin dose due [...] 270 tablet 3 Blood-Glucose Meter,Continuous (DEXCOM G7 AIRBRUSH ARTIST) [facility] Use to check blood sugar at least [...] 1 Each 3 Blood-Glucose Meter,Continuous (DEXCOM G6 AIRBRUSH ARTIST) [facility] Use to check blood sugar at least [...] with long-term current use of insulin ([facility]) - ICD9: 250.20, V58.67, ICD10: E11.00, Z79.4 [...] was 18 minutes. documented in this encounter [facility] 07-17-2022 Note [facility] 07-13-2022 Note [facility] 07-13-[address] - [...] dialysis RD 6. Consider calorie intake of 4913-0627 calories for weight loss (RMR - 300-500 calories) documented in this encounter [facility] 07-12-2022 Note [facility] 07-12-2022 Note [facility] 07-12-2022 History of Present illness Narrative [facility] [place] [facility] Transplant Evaluation CC: Consultation for Kidney transplant evaluation. Referred by: Ricki Dc [address] [place] [place] [address] I will communicate with the referring provider [...] FLX DX W/COLLJ SPEC WHEN PFRMD 11/29/2011 [facility] Main /Dr. Anderson COLONOSCOPY FLX DX W/COLLJ SPEC WHEN PFRMD 07/2011 Jann[facility] COLONOSCOPY FLX DX W/COLLJ SPEC WHEN PFRMD 09/2011 Dr. Lagunas [facility] ESOPHAGOGASTRODUODENOSCOPY TRANSORAL DIAGNOSTIC 12/2009 [facility] Janneth ESOPHAGOGASTRODUODENOSCOPY TRANSORAL DIAGNOSTIC 12/2010 [facility] Janneth FISTULA HERNIA REPAIR HX 12/2008 [...] mouth once daily. Blood-Glucose Meter,Continuous (DEXCOM G7 AIRBRUSH ARTIST) [facility] Use to check blood sugar at least [...] each sensor change. Blood-Glucose Meter,Continuous (DEXCOM G6 AIRBRUSH ARTIST) [facility] Use to check blood sugar at least [...] CA Stroke Father Ischemic Heart Disease Father [place] age 70s Diabetes Mother age 76 other [...] CC echocardiographic exam for comparison [facility] [place]:04/04/2021 Impression: Severe disease of the proximal LAD [...] Other chronic findings, as above. PAP Test: [facility] Mammogram: 05/08/2022 IMPRESSION: NEGATIVE There is no [...] Kel Victoria MD [facility] 07[facility]12[facility]2022 Note [facility] 07-12-2022 History of Present illness Narrative [...] dialysis RD 6. Consider calorie intake of 6560-9485 calories for weight loss (RMR - 300-500 [...] likes at dialysis. It is sold on [email or web address] and she is gong to look into [...] burgers. Snack - frozen fruit Beverages - [place] crush 0; water with pills; 1-2 boosts daily; Take Out: 2x/week: fish sandwich from [employer]. Alcohol- not assessed. Vitamins/Supplements - vitamin b [...] 11:23 AM PAGER: documented in this encounter [facility] 07-12-2022 Note [facility] 07-10-2022 Miscellaneous Notes Patient calls and notified that provider had sent hydrocortisone cream to [facility] pharmacy for itching. Patient voiced understanding. [...] time. Patient is requesting a script for [place] in place of the ultram. Christina Padmini Guerrier is calling Jame Hunt MD today with concern since being prescribed Tramadol she is having itching, stated on her back. Please call Patient. Patient has been identified by name and birthdate. Duration of symptoms: N/A Person calling: self Call patient at: on cell [phone] (home) [phone] (cell) Was an appointment scheduled: No Closing statement: Symptom Call: Thank you for [facility], your call is very important. A nurse will call in approximately 2-4 hours during business hours. If this is an emergency, please contact 911. Aleyda Mendoza Pss documented in this encounter [facility] 07-05-2022 Note [facility] 07-05-2022 History of Present illness Narrative [...] about Kidney Allocation Policy -Directions to access [facility]'s data through the [facility] website. -Informed Consent for Transplant Program Participation patient education packet -National Kidney Registry pamphlet -Covid-19 Vaccination for Transplant Candidates Method of Instruction: Group class instruction Verbal instruction Computer Patient/Family Response: Patient asked appropriate questions, which were answered satisfactorily. Follow-Up Plan: Contact information given. Referral/Recommendation: None Renetta Mendez RN Pre-Catalogue Compiler documented in this encounter [facility] 06-26-2022 Note [facility] 06-26-2022 History of Present illness Narrative [...] admits to missed doses Was traveling to [place] over the weekend and had some missed dose of insulin Has not started to use the sliding scale insulin with Novolog, taking 25 units with meals Continues to have intermittent connection with phone and sensor, Dexcom G7 was ordered and she is awaiting to hear from DME about approval Will be undergoing kidney transplant evaluation GLYCEMIC CONTROL: - Share code: [id number] CGM Report ROS: As above. Patient denies [...] 270 tablet 3 Blood-Glucose Meter,Continuous (DEXCOM G7 AIRBRUSH ARTIST) [facility] Use to check blood sugar at least [...] 1 Each 3 Blood-Glucose Meter,Continuous (DEXCOM G6 AIRBRUSH ARTIST) [facility] Use to check blood sugar at least [...] with long-term current use of insulin ([facility]) - ICD9: 250.20, V58.67, ICD10: E11.00, Z79.4 [...] was 20 minutes. documented in this encounter [facility] 06-21-2022 Miscellaneous Notes Patient notified. Verbalized [...] for the weekend and would like to order picker chico. Patient has been identified by [...] 21 04/12/2021 22 Please advise. Thank you. Estefain Patel RN Patient last seen on 05/30/2022 [...] the preferred pharmacy. documented in this encounter [facility] 06-14-2022 Note [facility] 06-14-2022 History of Present illness Narrative [...] daily weight at home? No Based on well surveying engineer, the following disposition is advised: Symptoms present, not severe. Routed to: No Action Needed NOELLE Education Provided this Outreach: No Roxie Palmer RN June 14, 2022 2:38 PM documented in this encounter [facility] 06-12-2022 Miscellaneous Notes Patient requesting all her meds be sent to [facility] b/c they will send them to her home. Pended all accept the torsemide 20 mg 2 tabs daily- patient reports Dr. Dc, design painter has been having her take 3 tabs daily to equal 60 mg daily for the past week. Asking pcp to write new rx and send to [facility]. Patient has been identified by [...] Estefani Patel RN documented in this encounter [facility] 05-30-2022 Note [facility] 05-29-2022 Note [facility] 05-29-2022 Miscellaneous Notes Patient currently receives Dexcom G6 from DME ([facility]). She is interested in upgrading to the Dexcom G7 model. We discussed that Medicare only covers a new reader every 5 years but she may be able to get Dexcom G7 sensors to use with phone. [facility] DME needs printed orders for Dexcom G7 model. Please process pended orders as print rx. Once PCP has signed, please fax to [facility] at [phone]. Pending orders: Requested Prescriptions Pending Prescriptions Disp Refills Blood-Glucose Meter,Continuous (DEXCOM G7 AIRBRUSH ARTIST) misc 1 Each 0 Sig: Use [...] with any questions. documented in this encounter [facility] 05-29-2022 History of Present illness Narrative Images from the original note were not included. Primary Care Pharmacy Visit CC (Reason for Consult): Diabetes Goal: A1c < 8% Collaborating Provider: Dr. Hunt Last Collaborating Physician/[employer] Visit: 05/02/22 Christina Guerrier is a 66 [...] your physician GLYCEMIC CONTROL: - Share code: [id number] CGM Report Summary of CGM Findings: 1- [...] [place] Rx coverage: [employer] HMO Medicare + [facility] Affordability: no issues Diabetes supplies: [employer] Organization System: pill box ACTIVE PROBLEM LIST [...] (Hcc) Krueger's Palsy Coronary Artery Disease Involving Council Coronary Artery of Council Heart Without Angina Pectoris Stable Angina (Hcc) [...] hernia 12/30/2008 Liver replaced by transplant ([facility]) 2008 - Cirrhosis s/p OLT 2008 - Cirrhosis 04/05 [facility] Plan: - Continue Tacrolimus 1.5 mg BID - daily Tacrolimus levels - Continue Otezla 30 mg BID Lymphedema RAUL (obstructive sleep apnea) does not use CPAP Other and unspecified hyperlipidemia Other lymphedema runs in family PMH - PAST MEDICAL HISTORY OF 1998 endometrial cancer, had complete hysterectomy Psoriasis and similar disorders [place] 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 Blood-Glucose Meter,Continuous (DEXCOM G6 AIRBRUSH ARTIST) [facility] Use to check blood sugar at least [...] with long-term current use of insulin ([facility]) - ICD9: 250.40, 791.0, V58.67, ICD10: E11.29, [...] Instructed patient to check with her DME ([facility]) on when she can get her [...] was 22 minutes. documented in this encounter [facility] 05-23-2022 Note [facility] 05-23-2022 Miscellaneous Notes Spoke to pt to let her know the orders have been placed for her evaluation and a analytical clerk should be contacting her within a week. I advised her to lose weight with her current BMI 42, she would not be able to be listed until 40. She said her ht is 5'6 not 5'4.5 . I said we would need to remeasure her as there are different hts in her chart documented in this encounter [facility] 05-23-2022 History of Present illness Narrative [...] HD started 10-19-20 Name of Dialysis Facility: [facility] Diabetes Yes. Diagnosed at age 52 [...] appointment Renetta Mendez RN Pre-Kidney & Pancreas Catalogue Compiler [facility] documented in this encounter [facility] 05-17-2022 Note [facility] 05-16-2022 Miscellaneous Notes Patient has been [...] Litzy Esparza Pss documented in this encounter [facility] 05-14-2022 Note [facility] 05-14-2022 History of Present illness Narrative Images from the original note were not included. Primary Care Pharmacy Visit CC (Reason for Consult): Diabetes Goal: A1c < 8% Collaborating Provider: Dr. Hunt Last Collaborating Physician/[employer] Visit: 05/02/22 Christina Guerrier is a 66 year old female presenting for follow up visit by telephone. Patient consents to pharmacy collaborative practice agreement. At last visit with ENTRY LEVEL FINANCE on 05/02/22 the following changes were made: [...] Adherence: denies missed doses Pharmacy: [facility] [place] Rx coverage: [employer] HMO Medicare + [facility] Affordability: no issues Diabetes supplies: [employer] Organization System: pill box ACTIVE PROBLEM LIST [...] (Hcc) Krueger's Palsy Coronary Artery Disease Involving Council Coronary Artery of [place] Heart Without Angina Pectoris Stable Angina (Hcc) [...] hernia 12/30/2008 Liver replaced by transplant ([facility]) 2008 - 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 Plan: - Continue Tacrolimus 1.5 mg BID - daily Tacrolimus levels - Continue Otezla 30 mg BID Lymphedema RAUL (obstructive sleep apnea) does not use CPAP Other and unspecified hyperlipidemia Other lymphedema runs in family PMH - PAST MEDICAL HISTORY OF 1999 endometrial cancer, had complete hysterectomy Psoriasis and similar disorders [place] 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 Blood-Glucose Meter,Continuous (DEXCOM G6 AIRBRUSH ARTIST) [facility] Use to check blood sugar at least [...] 41.60 kg/(m^2) LABS: ESRD on dialysis on [facility] Liver transplant list Lab Results Component [...] with long-term current use of insulin ([facility]) - ICD9: 250.40, 791.0, V58.67, ICD10: E11.29, [...] was 25 minutes. documented in this [facility] 05-08-2022 Note [facility] 05-08-2022 History of Present illness Narrative Radiology Service Progress Note PATIENT NAME: Christina Geurrier DATE OF SERVICE: May 08, 2022 TIME: [...] 2022 7:28 AM documented in this [facility] 05-03-2022 Note [facility] 05-03-2022 History of Present illness Narrative This is a virtual visit using [employer] video visit. 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 Lagunas [facility] ESOPHAGOGASTRODUODENOSCOPY TRANSORAL DIAGNOSTIC 12/2009 [facility] Janneth ESOPHAGOGASTRODUODENOSCOPY TRANSORAL DIAGNOSTIC 12/2010 [facility] Janneth FISTULA HERNIA REPAIR HX 12/2008 [...] CA Stroke Father Ischemic Heart Disease Father [place] age 70s Diabetes Mother age 76 other [...] each sensor change. Blood-Glucose Meter,Continuous (DEXCOM G6 AIRBRUSH ARTIST) [facility] Use to check blood sugar at least [...] which included preparing to see the patient, [id number] patient care, completing clinical documentation, obtaining and/or reviewing separately obtained history, performing a medically appropriate examination, counseling and educating the patient/family/caregiver, and ordering medications, tests, or procedures. Yesica Us PA-C May 03, 2022 11:37 AM documented in this encounter [facility] 05-02-2022 Miscellaneous Notes done Amber Jones RN, BSN Post Liver Catalogue Compiler Patient called she went to get labs Today and her labs are , requesting her Coordinator to Update the orders. documented in this encounter [facility] 05-02-2022 Note [facility] 05-02-2022 History of Present illness Narrative [...] has had a decreased appetite. Went to [place] [facility] last week from dialysis for left shoulder pain with negative xrays and unremarkable lab work. Still with diarrhea has not seen GI yet and colestipol is on back order. Will have this 1-2 times a day pure liquid and will take immodium if needed. Sometimes will get a sharp pain to her right gnosticism with moving her head that is only [...] W/COLLJ SPEC WHEN PFRMD 09/2011 Dr. Lagunas [facility] ESOPHAGOGASTRODUODENOSCOPY TRANSORAL DIAGNOSTIC 12/2009 [facility] Janneth ESOPHAGOGASTRODUODENOSCOPY TRANSORAL DIAGNOSTIC 12/2010 [facility] Janneth FISTULA HERNIA REPAIR HX 12/2008 [...] with long-term current use of insulin ([facility]) - Primary E11.29, R80.9, Z79.4^Disp: 6000 mL^Rfl: [...] 1 Each^Rfl: 3 Blood-Glucose Meter,Continuous (DEXCOM G6 AIRBRUSH ARTIST) misc^Use to check blood sugar at [...] CA Stroke Father Ischemic Heart Disease Father [place] age 70s Diabetes Mother age 76 other [...] Aged Out DATA REVIEWED: Outside chart from [facility] reviewed. ASSESSMENT/PLAN: 1. Type 2 diabetes [...] Silva Plasencia APRN.CNP documented in this [facility] 04-24-2022 Miscellaneous Notes Called and spoke with patient regarding kidney transplant, intake completed, and to nurse coordinator for review. Haritha Chan Pre- transplant intake form Date: 04/24/2022 Spoke with: Patient : 1955 EMAIL: theRightAPI Jonnie M/F: F Work Status: Not working; [...] Previous Transplant? Yes Date/Where at? 05/05/2008 at [facility] Nephrectomy? No Evaluation elsewhere? Listed? Yes at [facility]; No Kidney Biopsy? Liver Biopsy? No Yes - on txp at [facility] Cirrhosis? Hepatitis? HIV? Cancer? Yes - [place] before Txp No No Yes-1998 Uterus and Cervix; had full hysterectomy; No chemo or radiation Diabetes 1 or 2? 2 Age diagnosed? 2007 Insulin dependent? Yes Hypoglycemic unawareness? No Hypertension? CAD? [place]? CABG/STENTS? Yes No No Yes - Hrt Stents 3x - in 2021 at [facility]. Stress? Echo? Cath? Yes Yes Yes [...] office. Haritha Chan documented in this encounter [facility] 04-20-2022 Note [facility] 04-20-2022 History of Present illness Narrative [...] like to speak with a social work seam steamer to help give you support for any [...] you up for automated weekly questionnaires through [employer]. This is an easy way for us [...] and End outreach. documented in this [facility] 04-19-2022 Note [facility] 04-19-2022 History of Present illness Narrative INSIGHT CDM TELEPHONIC OUTREACH Provider Action/FYI: voicemail Contact made with patient: No - Left message Tierney my name is Roxie Palmer RN your Leasing Associate [facility] I am calling today for your monthly check in. I am sorry I missed your call. I will reach out to you again tomorrow. Enter next patient outreach date using the Track Pt Outreach. End outreach. documented in this encounter [facility] 04-19-2022 Miscellaneous Notes Patient has been [...] with long-term current use of insulin ([facility]) - Primary E11.29, R80.9, Z79.4 Date of last office visit in primary care: 09/07/2021 Please advise. Thank you. Beth Pedersen LPN documented in this encounter [facility] 03-19-2022 Miscellaneous Notes Patient has been [...] Franci Quinn LPN documented in this encounter [facility] 02-22-2022 History of Present illness Narrative [...] like to speak with a social work seam steamer to help give you support for any [...] you up for automated weekly questionnaires through [employer]. This is an easy way for us [...] Track Pt Outreach and End outreach. INSIGHT [facility] TELEPHONIC OUTREACH Provider Action/FYI: voicemail Contact made with patient: No - Left message Tierney my name is Roxie Palmer RN your Leasing Associate [facility] I am calling today for your monthly check in. I am sorry I missed your call. I will reach out to you again tomorrow. Enter next patient outreach date for the following business day using the Track Pt Outreach. End outreach. documented in this encounter [facility] 02-09-2022 Miscellaneous Notes Patient went to [...] Janelle Crocker RN documented in this [facility] 02-05-2022 Miscellaneous Notes Patient came into [...] calling: self Call patient at: on cell [phone] (home) [phone] (cell) Was an appointment scheduled: No Closing statement: Symptom Call: Thank you for [facility], your call is very important. A nurse will call in approximately 2-4 hours during business hours. If this is an emergency, please contact 911. 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 Lagunas [facility] ESOPHAGOGASTRODUODENOSCOPY TRANSORAL DIAGNOSTIC 12/2009 [facility] Janneth ESOPHAGOGASTRODUODENOSCOPY TRANSORAL DIAGNOSTIC 12/2010 [facility] Janneth FISTULA HERNIA REPAIR HX 12/2008 [...] [place] Stroke Father Ischemic Heart Disease Father [place] age 70s Diabetes Mother age 76 other [...] G6 TRANSMITTER) brady Blood-Glucose Meter,Continuous (DEXCOM G6 AIRBRUSH ARTIST) misc Blood-Glucose Sensor (DEXCOM G6 SENSOR) [...] Jame Hunt MD documented in this [facility] 02-01-2022 Miscellaneous Notes Pt notified and [...] file. Please advise. documented in this encounter [facility] 01-29-2022 History of Present illness Narrative [...] tylenol and diclofenac gel without any help. [place] helps when pain is severe. 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 Lagunas [facility] ESOPHAGOGASTRODUODENOSCOPY TRANSORAL DIAGNOSTIC 12/2009 [facility] Janneth ESOPHAGOGASTRODUODENOSCOPY TRANSORAL DIAGNOSTIC 12/2010 [facility] Janneth FISTULA HERNIA REPAIR HX 12/2008 [...] with long-term current use of insulin ([facility]) - Primary E11.29, R80.9, Z79.4^Disp: ^Rfl: 0 [...] 1 Each^Rfl: 3 Blood-Glucose Meter,Continuous (DEXCOM G6 AIRBRUSH ARTIST) misc^Use to check blood sugar at [...] [place] Stroke Father Ischemic Heart Disease Father [place] age 70s Diabetes Mother age 76 other [...] Silva Plasencia APRN.CNP documented [facility] 01-26-2022 History of Present illness Narrative INSIGHT CDM TELEPHONIC OUTREACH Provider Action/FYI: Cramping in her hands happens frequently-no difference in dialysis days or non-dialysis days Sometimes hard to order picker a jug of milk Using arthritis [...] like to speak with a social work seam steamer to help give you support for any [...] you up for automated weekly questionnaires through [employer]. This is an easy way for us [...] and End outreach. documented in this [facility] 01-24-2022 Miscellaneous Notes Patient called to request the medication again. Remedios--01/01/22 Nov--01/29/22 Last refill--10/20/21 60 with 2 refills Last labs--01/16/22 documented in this encounter [facility] 01-01-2022 History of Present illness Narrative INSIGHT CDM TELEPHONIC OUTREACH Provider Action/FYI: 2nd attempt, left another message Contact made with patient: No - Left message Helgeorge my name is Roxie Palmer RN your Leasing Associate [facility] I am calling today for your monthly check in. I am sorry I missed your call. I will reach out to you again next month. End outreach. 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 No colitis. Poor rectal sphincter tone. Referred to [facility]. COLONOSCOPY FLX DX W/COLLJ SPEC WHEN PFRMD 11/29/2011 [facility] Main /Dr. Anderson COLONOSCOPY FLX DX W/COLLJ SPEC WHEN PFRMD 07/2011 Janneth COLONOSCOPY FLX DX W/COLLJ SPEC WHEN PFRMD 09/2011 Dr. Lagunas [facility] ESOPHAGOGASTRODUODENOSCOPY TRANSORAL DIAGNOSTIC 12/2009 [facility] Janneth ESOPHAGOGASTRODUODENOSCOPY TRANSORAL DIAGNOSTIC 12/2010 [facility] Janneth FISTULA HERNIA REPAIR HX 12/2008 [...] with long-term current use of insulin ([facility]) - Primary E11.29, R80.9, Z79.4^Disp: ^Rfl: 0 [...] 1 Each^Rfl: 3 Blood-Glucose Meter,Continuous (DEXCOM G6 AIRBRUSH ARTIST) [facility]^Use to check blood sugar at least four [...] [place] Stroke Father Ischemic Heart Disease Father [place] age 70s Diabetes Mother age 76 other [...] Silva Plasencia APRN.CNP documented [facility] 12-29-2021 History of Present illness Narrative INSIGHT CD TELEPHONIC OUTREACH Provider Action/FYI: voicemail Contact made with patient: No - Left message Hello my name is Roxie Palmer RN your Leasing Associate [facility] I am calling today for your monthly check in. I am sorry I missed your call. I will reach out to you again tomorrow. Enter next patient outreach date for the following business day using the Track Pt Outreach. End outreach. documented in this [facility] 12-13-2021 Miscellaneous Notes Patient notified and [...] review for improvement. Thank you Silva Plasencia APRN.ENTRY LEVEL FINANCE documented in this [facility] 12-12-2021 Miscellaneous Notes Patient has been [...] Nell Lemons LPN documented in this [facility] 12-11-2021 History of Present illness Narrative CC: Patient presents with: Recheck: Hosp follow up hyperkalemia HPI Christina Guerrier is a 66 year old female who presents today for Hospital follow-up. Facility: [facility] Date of visit: 12/07/21-12/08/21 Reason for [...] FLX DX W/COLLJ SPEC WHEN PFRMD 11/29/2011 [facility] Main /Dr. Anderson COLONOSCOPY FLX DX W/COLLJ SPEC WHEN PFRMD 07/2011 Jann[facility] COLONOSCOPY FLX DX W/COLLJ SPEC WHEN PFRMD 09/2011 Dr. Lagunas [facility] ESOPHAGOGASTRODUODENOSCOPY TRANSORAL DIAGNOSTIC 12/2009 [facility] [facility] Janneth ESOPHAGOGASTRODUODENOSCOPY TRANSORAL DIAGNOSTIC 12/2010 [facility] Janneth FISTULA HERNIA REPAIR HX 12/2008 [...] with long-term current use of insulin ([facility]) - Primary E11.29, R80.9, Z79.4^Disp: ^Rfl: 0 [...] 1 Each^Rfl: 3 Blood-Glucose Meter,Continuous (DEXCOM G6 AIRBRUSH ARTIST) misc^Use to check blood sugar at [...] CA Stroke Father Ischemic Heart Disease Father [place] age 70s Diabetes Mother age 76 other [...] Aged Out DATA REVIEWED: Outside chart from [facility] reviewed. ASSESSMENT/PLAN: 1. History of recent [...] with more than 50% of the total [id number] time of the visit in counseling / coordination of care. [facility] 12-04-[facility]21 History of Present illness Narrative INSIGHT CDM TELEPHONIC OUTREACH Provider Action/FYI: 2nd attempt, left another message Contact made with patient: No - Left message Tierney my name is Roxie Palmer RN your Leasing [facility] I am calling today for your bi-weekly check in. I am sorry I missed your call. I will reach out to you again tomorrow. (if the third call I will reach out to you again next week) Enter next patient outreach date for the following business day using the Track Pt Outreach. End outreach. documented [facility] 12-01-2021 History of Present illness Narrative INSIGHT [facility] TELEPHONIC OUTREACH Provider Action/FYI: voicemail Contact made with patient: No - Left message Hello my name is Roxie Palmer RN your Leasing Associate [facility] I am calling today for your bi-weekly check in. I am sorry I missed your call. I will reach out to you again tomorrow. (if the third call I will reach out to you again next week) Enter next patient outreach date for the following business day using the Track Pt Outreach. End outreach. documented in this [facility] 11-07-2021 History of Present illness Narrative INSIGHT [facility] TELEPHONIC OUTREACH Provider Action/FYI: 2nd attempt No answer/voicemail not set up Unable to leave message Contact made with patient: No - Unable to leave message Entered next patient outreach date for the following business day, if third call please enter next outreach date for one week in the Track Pt. Outreach - End Outreach documented in this [facility] 11-03-2021 History of Present illness Narrative [facility]IGHT [facility] TELEPHONIC OUTREACH Provider Action/FYI: No answer/voicemail not set up Contact made with patient: No - Unable to leave message Entered next patient outreach date for the following business day, if third call please enter next outreach date for one week in the Track Pt. Outreach - End Outreach documented in this [facility] 11-02-2021 History of Present illness Narrative [...] on 10/12, lunchtime Novolog was increased. At ENTRY LEVEL FINANCE visit on 10/20, patient seen for ear pain and vaginal/rectal bleeding, and on 10/22 patient hospitalized for GI bleed. Subjective: HPI: Patient reports she only has 1 Dexcom sensor left. She gets supplies through [facility]. States her Dexcom keeps alerting her [...] missed doses [facility] Affordability: no issues Diabetes supplies: [email or web address] System: pill box ACTIVE PROBLEM LIST WOUND [...] (Hcc) Krueger's Palsy Coronary Artery Disease Involving Council Coronary Artery of Council Heart Without Angina Pectoris Stable Angina (Hcc) [...] Insulin: yes supplies Blood-Glucose Meter,Continuous (DEXCOM G6 AIRBRUSH ARTIST) [facility] Use to check blood sugar at least [...] with long-term current use of insulin ([facility]) - Primary E11.29, R80.9, Z79.4 insulin glargine [...] ALT 25 10/20/2021 ESRD on dialysis on [facility] Liver transplant list Lab Results Component [...] with long-term current use of insulin ([facility]) - ICD9: 250.40, 791.0, V58.67, ICD10: E11.29, [...] the dose of Novolog Advised to call [facility] to request refill of CGM sensors; phone number provided 2. Medication management - ICD9: V58.69, ICD10: Z79.899 Reviewed all medications, indications, dosing, frequency, administration with patient. Medication list updated as described above. Patient is scheduled to see ENTRY LEVEL FINANCE on 01/04. Patient to have PharmD f/u on 12/07. Patient verbalized understanding of instructions. Kim La PharmD, [facility] Primary Care Clinical Pharmacist The majority of the pharmacy visit (> 50%) was spent counseling and/or coordinating care for the patient. interaction: telephonic time was 30 minutes. 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 Lagunas [facility] ESOPHAGOGASTRODUODENOSCOPY TRANSORAL DIAGNOSTIC 12/2009 [facility] Janneth ESOPHAGOGASTRODUODENOSCOPY TRANSORAL DIAGNOSTIC 12/2010 [facility] Janneth FISTULA HERNIA REPAIR HX 12/2008 [...] CA Stroke Father Ischemic Heart Disease Father [place] age 70s Diabetes Mother age 76 other [...] mouth once daily. Blood-Glucose Meter,Continuous (DEXCOM G6 AIRBRUSH ARTIST) misc Use to check blood sugar [...] - Work up with Ultrasound transvaginal - Faith low residue diet - Treatment for constipation discussed RTO as needed to follow-up with PCP team. Prescription instructions reviewed with patient as applicable. Potential red flag symptoms discussed with the patient. Reviewed appropriate action plan to take if red flag symptoms occur. Patient agreeable to treatment plan. Jaci Lucero APRN.NATHALY [address] [place] [address] documented in this [facility] 10-12-2021 History of Present illness Narrative [...] popcorn (white cheddar) Beverages: fluid restriction, usually [place] Crush Zero, 1 can daily; chews ice MEDICATIONS: Pill bottles are not present Adherence: denies missed doses Pharmacy: [facility] Rx coverage: [employer] 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 Splenomegaly ALLERGIES Allergen [...] hypoglycemia Insulin: yes Blood-Glucose Meter,Continuous (DEXCOM G6 AIRBRUSH ARTIST) [facility] Use to check blood sugar at least [...] with long-term current use of insulin ([facility]) - Primary E11.29, R80.9, Z79.4 insulin glargine [...] ALT 31 07/03/2021 ESRD on dialysis on [facility] Liver transplant list Lab Results Component [...] with long-term current use of insulin ([facility]) - ICD9: 250.40, 791.0, V58.67, ICD10: E11.29, [...] due now Patient is scheduled to see ENTRY LEVEL FINANCE on 01/04. Patient to have PharmD f/u on 11/02. Patient verbalized understanding of instructions. Kim La PharmD, [facility] Primary Care Clinical Pharmacist The majority of the pharmacy visit (> 50%) was spent counseling and/or coordinating care for the patient. interaction: telephonic time was 28 minutes. documented in this [facility] 10-09-2021 History of Present illness Narrative [...] like to speak with a social work seam steamer to help give you support for any [...] you up for automated weekly questionnaires through [employer]. This is an easy way for us [...] and End outreach. documented in this [facility] 09-28-2021 Miscellaneous Notes Patient stopped by [...] to next PharmD visit. Kim La PharmD, [facility] Primary Care Clinical Pharmacist Cathryn LEA [facility] documented in this encounter [facility] 09-28-2021 History of Present illness Narrative [...] current concerns. 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 Lagunas [facility] ESOPHAGOGASTRODUODENOSCOPY TRANSORAL DIAGNOSTIC 12/2009 [facility] Janneth ESOPHAGOGASTRODUODENOSCOPY TRANSORAL DIAGNOSTIC 12/2010 [facility] Janneth FISTULA HERNIA REPAIR HX 12/2008 [...] each sensor change. Blood-Glucose Meter,Continuous (DEXCOM G6 AIRBRUSH ARTIST) [facility] Use to check blood sugar at least [...] CA Stroke Father Ischemic Heart Disease Father [place] age 70s Diabetes Mother age 76 other [...] Aged Out DATA REVIEWED: Outside chart from [facility] reviewed. ASSESSMENT/PLAN: 1. Lump of right [...] Silva Plasencia APRN.CNP documented in [facility] 09-26-2021 Miscellaneous Notes REMEDIOS: 08/31/2021 Last refill: 04/19/2021 QTY: 60 Refills: 5 Patient's request for medication is as follows: Pending Prescriptions Disp Refills TRAZODONE 100 MG TABLET 60 tablet 5 Sig: Take 2 tablets by mouth daily at bedtime. JHON: No Please approve the above prescription(s) to electronically send to pharmacy. Jaden Yadav Ma documented in this encounter [facility] 09-21-2021 History of Present illness Narrative [...] TIME: 10:49 AM documented in this [facility] 09-11-2021 Miscellaneous Notes Reason for Call: [...] and will have family take her to [place] [facility] Reason for Disposition Blood glucose > [...] N/A Protocols used: DIABETES - HIGH BLOOD [id number] documented in this encounter [facility] 09-11-2021 History of Present illness Narrative [facility] CDM Enrollment Provider Action/FYI: Returned call Patient referred by: [facility] Osei Contact made with patient: Yes - Patient identified by name and . Discussed care with patient Tierney this is Roxie Palmer RN and I am calling from Jame Hunt MD office at [facility]. I am a RN Leasing Associate with our [facility] Chronic Disease Management program. [...] few questions once a week through your [employer] account. It will automatically show up for [...] stressful. Can we connect you with a [facility] Plastic Printer to find a program that could help [...] Provider Action/FYI: ckd voicemail Patient referred by: [facility] Osei Contact made with patient: No - Left Message: Hi my name is Roxie Palmer RN and I am calling from [facility] on behalf of your PCP, Jame Hunt MD. We are excited to share with you a new program to help you manage your health. Please call me back at [phone] between the hours of 8am-5pm Saturday-Saturday. You will receive another phone call from me within the next two business days. I hope you can take the time to speak with me. (Keep encounter open and attempt 2nd outreach in two business days from today) END OUTREACH documented in this encounter [facility] 09-07-2021 Miscellaneous Notes Images from the original note were not included. Approved Prior authorization approved Payer: [employer] [phone] EDUIN Case: [id number], Status: Approved, Coverage Starts on: 09/07/2021 1:53:39 PM, Coverage Ends on: 09/07/2021 1:53:39 PM. Questions? Contact . Approval Details Authorized from September 07, 2021 to September 07, 2021 Electronic PA completed for insulin aspart unit(s) 100(novolog U100 insulin aspart) documented in this encounter [facility] 09-07-2021 Miscellaneous Notes Noted. The following approved medication requests have been transmitted electronically. Signed Prescriptions Disp Refills insulin aspart U-100 (NOVOLOG U-100 INSULIN ASPART) 100 unit/mL 6 Vial 3 Sig: Inject 22 Units subcutaneously three times daily before meals. Type 2 diabetes mellitus with microalbuminuria, with long-term current use of insulin ([facility]) - Primary E11.29, R80.9, Z79.4 JHON: No Authorizing Provider: JAME HUNT Ordering User: KIM LA RPh [facility] pharmacy calling with request for new script for Novolog Insulin with diagnosis code on script for Medicare billing. Amadeo Mar RN documented in this encounter [facility] 09-07-2021 History of Present illness Narrative [...] for cellulitis on right leg. At last ENTRY LEVEL FINANCE appt, cellulitis appeared to be resolved but [...] [facility] Rx coverage: [employer] HMO Medicare + [facility] Affordability: no issues Diabetes supplies: [email or web address] System: pill box ACTIVE PROBLEM LIST WOUND [...] (Hcc) Krueger's Palsy Coronary Artery Disease Involving Council Coronary Artery of [place] Heart Without Angina Pectoris Stable Angina (Hcc) [...] CKD (chronic kidney disease) Dialysis M/W/F [facility] COPD (chronic obstructive pulmonary disease) (HCC) Diabetes [...] had complete hysterectomy Psoriasis and similar disorders [place] 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 Patient is scheduled to see ENTRY LEVEL FINANCE on 09/28. Patient to have PharmD f/u on 10/12. Patient verbalized understanding of instructions. Kim La PharmD, [facility] Primary Care Clinical Pharmacist Julia Gu [facility] The majority of the pharmacy visit (> 50%) was spent counseling and/or coordinating care for the patient. interaction: face to face time was 28 minutes. documented in this encounter [facility] 09-06-2021 Miscellaneous Notes Pt called and [...] Janelle Crocker RN documented in this encounter [facility] 09-06-2021 Miscellaneous Notes [employer] message sent to patient. It seems like [...] of office today. Patient phone number is [phone]. Please advise 09/05/2021 8:05 AM - Radiology, Oru In Impression IMPRESSION: Nonspecific intramuscular hypoechoic lesion. Possibly, this is an organizing hematoma and correlation to any history of recent trauma is suggested. Either follow-up examinations or MRI could be considered for further assessment. Port Surveyor: BRET Transcribe Date/Time: Sep 05 2021 8:02A Dictated by : MASUOD ANN MD This examination was interpreted and [...] some internal fluid. 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 No colitis. Poor rectal sphincter tone. Referred to [facility]. COLONOSCOPY FLX DX W/COLLJ SPEC WHEN PFRMD 11/29/2011 [facility] Main /Dr. Anderson COLONOSCOPY FLX DX W/COLLJ SPEC WHEN PFRMD 07/2011 Janneth COLONOSCOPY FLX DX W/COLLJ SPEC WHEN PFRMD 09/2011 Dr. Lagunas [facility] ESOPHAGOGASTRODUODENOSCOPY TRANSORAL DIAGNOSTIC 12/2009 [facility] Janneth ESOPHAGOGASTRODUODENOSCOPY TRANSORAL DIAGNOSTIC 12/2010 [facility] Janneth FISTULA HERNIA REPAIR HX 12/2008 [...] each sensor change. Blood-Glucose Meter,Continuous (DEXCOM G6 AIRBRUSH ARTIST) [facility] Use to check blood sugar at least [...] CA Stroke Father Ischemic Heart Disease Father [place] age 70s Diabetes Mother age 76 other [...] Silva Plasencia APRN.CNP documented [facility] 08-25-2021 History of Present illness Narrative [...] hernia 12/30/2008 Liver replaced by transplant ([facility]) 2008 - 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 Plan: - Continue Tacrolimus 1.5 mg BID - daily Tacrolimus levels - Continue Otezla 30 mg BID Lymphedema RAUL (obstructive sleep apnea) does not use CPAP Other and unspecified hyperlipidemia Other lymphedema runs in family PMH - PAST MEDICAL HISTORY OF 1998 endometrial cancer, had complete hysterectomy Psoriasis and similar disorders [place] 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 No colitis. Poor rectal sphincter tone. Referred to [facility]. COLONOSCOPY FLX DX W/COLLJ SPEC WHEN PFRMD 11/29/2011 [facility] Main /Dr. Anderson COLONOSCOPY FLX DX W/COLLJ SPEC WHEN PFRMD 07/2011 Janneth COLONOSCOPY FLX DX W/COLLJ SPEC WHEN PFRMD 09/2011 Dr. Lagunas [facility] ESOPHAGOGASTRODUODENOSCOPY TRANSORAL DIAGNOSTIC 12/2009 [facility] Janneth ESOPHAGOGASTRODUODENOSCOPY TRANSORAL DIAGNOSTIC 12/2010 [facility] Janneth FISTULA HERNIA REPAIR HX 12/2008 [...] each sensor change. Blood-Glucose Meter,Continuous (DEXCOM G6 AIRBRUSH ARTIST) [facility] Use to check blood sugar at least [...] CA Stroke Father Ischemic Heart Disease Father [place] age 70s Diabetes Mother age 76 other [...] Silva Plasencia APRN.CNP documented [facility] 08-21-2021 History of Present illness Narrative POPULATION HEALTH NAVIGATION OUTREACH Action/I Patient Outreach: [place] Support - Spoke with patient to schedule [...] Care Gap or Scheduling/Wellness visits Payer: Payor: [email or web address] MEDICARE / Plan: [employer] PLUS / Product Type: HMO / Care Gap Reviewed:: Follow-up appointment Reminder: Reminder note to check Health Maintenance for items below Health Maintenance items due: SHINGRIX VACCINE(1 of 2) Never done PAP TESTING due on 03/05/2020 Message Sent to Practice: No Navigation Signature: Haritha Cary August 21, 2021 5:00 PM documented in this encounter [facility] 08-14-2021 Miscellaneous Notes forms completed and faxed on 08/09/2021. Franci Quinn LPN Forms received and placed papers on providers desk. Franci Quinn LPN Ok noted. Jasmina from [facility] calling she will be faxing Power chair forms back to office with on cover sheet what needs to be fixed on the forms. Please advise documented in this encounter [facility] 08-14-2021 History of Present illness Narrative [...] evening of Saturday she did go to [facility], her covid and flu was [...] in stage 4 chronic kidney disease ([facility]) 12/17/2016 Anemia of chronic kidney failure, stage 4 (severe) ([facility]) 12/11/2016 Anxiety Arthritis Krueger's palsy CAD (coronary artery disease) Cancer (HCC) uterine and cervical Celiac disease 2007 Cellulitis of back except buttock Cirrhosis of liver without mention of alcohol CKD (chronic kidney disease) Dialysis M/W/F [facility] COPD (chronic obstructive pulmonary disease) ([facility]) Diabetes mellitus without mention of complication Diabetic polyneuropathy ([facility]) 02/04/2017 Disorder of thyroid DVT (deep venous thrombosis) ([facility]) Esophageal reflux Hammer toes, bilateral 11/30/2016 History of transfusion Hypertension Incisional hernia 12/30/2008 Liver replaced by transplant ([facility]) 2008 - Cirrhosis s/p OLT 2008 - [...] W/COLLJ SPEC WHEN PFRMD 09/2011 Dr. Lagunas [facility] ESOPHAGOGASTRODUODENOSCOPY TRANSORAL DIAGNOSTIC 12/2009 [facility] Janneth ESOPHAGOGASTRODUODENOSCOPY TRANSORAL DIAGNOSTIC 12/2010 [facility] Janneth FISTULA HERNIA REPAIR HX 12/2008 [...] CA Stroke Father Ischemic Heart Disease Father [place] age 70s Diabetes Mother age 76 other [...] G6 TRANSMITTER) brady Blood-Glucose Meter,Continuous (DEXCOM G6 AIRBRUSH ARTIST) misc Blood-Glucose Sensor (DEXCOM G6 SENSOR) [...] Jame Hunt MD documented in this encounter [facility] 08-09-2021 Miscellaneous Notes Form completed and faxed. Franci Quinn LPN I addeded ,my notes please addend your office note per Charlotte , see below Noted. Thank you for all of your help with this. Thank you Silva Plasencia APRN.ENTRY LEVEL FINANCE Thanks for reaching out to patient Franci. Dr. Hunt, can you please addend your last office visit note with the information below from patient. Thanks, Charlotte Gurrola PharmD, BCACP Primary Care Clinical Pharmacist [facility] Patient takes insulin: Novolog unit(s)-100 3 [...] Gurrola PharmD, BCACP Primary Care Clinical Pharmacist [facility] Patient is interested in getting the [place] and may need a follow up appointment. Please advise documented in this encounter [facility] 08-03-2021 Miscellaneous Notes Pt would like these medications reordered. Correct pharmacy verified on order. Pending Prescriptions Disp Refills ASPIRIN 81 MG CHEWABLE TABLET Sig: Take 4 tablets by mouth once daily. JHON: No documented in this encounter [facility] 07-24-2021 History of Present illness Narrative Charbel Esparza MD Department of Orthopaedics Orthopaedics [address] [facility] [address] Dept: [phone] Dept July 24, 2021 Consultation requested by [...] IMPRESSION: Osteoarthrosis. No evidence of inflammatory arthropathy. Port Surveyor: [facility] Transcribe Date/Time: Jul 03 2021 4:57P [...] without mention of complication Diabetic polyneuropathy ([facility]) 02/04/2017 Disorder of thyroid DVT (deep venous thrombosis) ([facility]) Esophageal reflux Hammer toes, bilateral 11/30/2016 History of transfusion Hypertension Incisional hernia 12/30/2008 Liver replaced by transplant ([facility]) 2008 - 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 Plan: - Continue Tacrolimus 1.5 mg BID - daily Tacrolimus levels - Continue Otezla 30 mg BID Lymphedema RAUL (obstructive sleep apnea) does not use CPAP Other and unspecified hyperlipidemia Other lymphedema runs in family PMH - PAST MEDICAL HISTORY OF 1999 endometrial cancer, had complete hysterectomy Psoriasis and similar disorders [place] 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 No colitis. Poor rectal sphincter tone. Referred to Oriana Newberry. COLONOSCOPY FLX DX W/COLLJ SPEC WHEN PFRMD 11/29/2011 [facility] Main /Dr. Anderson COLONOSCOPY FLX DX W/COLLJ SPEC WHEN PFRMD 07/2011 Janneth COLONOSCOPY FLX DX W/COLLJ SPEC WHEN PFRMD 09/2011 Dr. Lagunas [facility] ESOPHAGOGASTRODUODENOSCOPY TRANSORAL DIAGNOSTIC 12/2009 [facility] Janneth ESOPHAGOGASTRODUODENOSCOPY TRANSORAL DIAGNOSTIC 12/2010 [facility] Janneth FISTULA HERNIA REPAIR HX 12/2008 [...] [place] Stroke Father Ischemic Heart Disease Father [place] age 70s Diabetes Mother age 76 other [...] mg by mouth once daily. Blood-Glucose Transmitter (ZurnCOM G6 TRANSMITTER) brady Apply new transmitter every 90 days. Clean transmitter with an alcohol swab with each sensor change. Blood-Glucose Meter,Continuous (DEXCOM G6 AIRBRUSH ARTIST) [facility] Use to check blood sugar at least four (4) times daily. Blood-Glucose Sensor (ZurnCOM G6 SENSOR) brady Apply new sensor every [...] mail or electronic medical record. Josse Lance [id number] [facility] [id number] Jame Hunt MD [address] [facility] [id number] Charbel Esparza MD [facility] Miscellaneous Notes Patient calling said [...] chair. Please advise documented [facility] Miscellaneous Notes Patient notified that prescription was sent to the pharmacy and verbalized understanding. Rx refill sent to [facility]. [facility] website checked and validated. All prescriptions have been APPROPRIATELY filled. No suspicious activity was identified. 07/13/2021 by Josse Lance APRN.BELT AND 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 Patient called to check on her request for medication; does not see Ortho until 07/27/21. Please send to [facility] [place]; added to file. Please call her today. Patient said Josse Lance referred her to ortho for wrist pain. Patient can't get in until 07/27/21. Wants to know if she can have a refill of [place] or another rx for the pain. Please advise at [phone]. documented [facility]21 Miscellaneous Notes PharmD printed out [...] Once completed, will plan to fax to [facility] Medical. Kim La PharmD, [facility] Primary Care Clinical Pharmacist Julia Gu [facility] documented in this encounter [facility] 07-12-2021 Miscellaneous Notes I called [employer] today at the number provided below. Spoke with a very helpful technical sales representatives named Lokesh who said the order needs to be submitted through medical benefit to [employer] company [employer]. PharmNichole will plan to resubmit paperwork tomorrow. No letter or fax. I called the per PA response [employer] at [phone] PharmNichole spoke with patient (can see MyC [...] insurance should cover Dexcom if sent through [employer]. Will await patient response. Kim La PharmD, [facility] Primary Care Clinical Pharmacist Julia Gu [facility] Called number and the PA needs to come from the pharmacy. They are asking for code DME H. The Dr office does not have this code. This call reference number is [id number]. Call to [facility] and pharmacist doesn't have this info either. He doesn't believe this would be covered.What about a guy ho? Images from the original note were not included. Per jose antonio PA response. Per [employer] for dexcom transmitter. PER the pharmacy this needs to have Prior Authorization thru her medical insurance not a covered benefit. documented in this [facility] 07[facility]12[facility]2021 Miscellaneous Notes PharmD called [employer] ([phone]) and spoke with technical sales representatives, Lokesh. Sees that authorization was submitted on July 10 and it is pending. He reported the authorization was submitted incorrectly as pharmacy benefit instead of a medical benefit. He said application needs to be submitted through [facility] [employer] (contact number provided: ). PharmD will plan to resubmit application through [facility] [employer] tomorrow when in the [place] office. Kim La PharmD, [facility] Primary Care Clinical Pharmacist Cathryn [facility] documented in this [facility] 07-09[facility]21 Miscellaneous Notes Patient is scheduled [...] with current treatment. documented in this [facility] 07-03-2021 Miscellaneous Notes Addended by: JOSSE LANCE on: 07/03/2021 11:41 AM Modules accepted: Orders documented in this encounter [facility] 07-03[facility]21 History of Present illness Narrative [...] (Hcc) Krueger's Palsy Coronary Artery Disease Involving Council Coronary Artery of Council Heart Without Angina Pectoris Stable Angina (Hcc) [...] Julia COPD (chronic obstructive pulmonary disease) ([facility]) Diabetes mellitus without mention of complication Diabetic polyneuropathy ([facility]) 02/04/2017 Disorder of thyroid DVT (deep venous thrombosis) ([facility]) Esophageal reflux Hammer toes, bilateral 11/30/2016 History of transfusion Hypertension Incisional hernia 12/30/2008 Liver replaced by transplant ([facility]) 2008 - Cirrhosis s/p OLT 2008 - [...] Lymph 1.00 - 4.00 k/uL 0.45 (L) Benzie% % 6.5 Abs Benzie <0.87 k/uL 0.23 Eosin% % 2.5 Abs [...] further evaluation, recommendations and treatment. Josse Lance APRN.BELT AND 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 Medical Decision Making: Problems: Moderate: 2+ stable chronic illnesses Data: Unique test(s) ordered: 3+ Risk: Moderate: Drug management Medical Decision Making Level: 4 - Moderate documented in this [facility] 07-03-2021 Miscellaneous Notes Did we ever receive the fax that [facility] said they were sending over? Noted. Please le us know if you need anything from PCP. Thank you Silva Plasencia APRN.CNP Noted, once fax is received place document it and place on PharmD's desk. Thanks! Kim La PharmD, [facility] Primary Care Clinical Pharmacist Julia Gu [facility] Rossana @ [employer] calling to let PCP know she is faxing a new order form for Dexcom G6 System. She states the original order was incomplete. Amadeo Mar, RN documented in this encounter [facility] 06-13-2021 Miscellaneous Notes Tonya from [facility] calling asking for paper work to be faxed to [phone]. Found paper work and faxed as requested. Current paperwork and orders sent to [facility]. We will await response. Franci Quinn LPN Franci. Do we have the paper work we sent to the [facility] people? How do I order for this? dont we get a form that we need to fill? Christina Guerrier is calling Jame Hunt MD today to request an order for a motorized scooter. Patient said this has been requested before but sent to [facility] who did not have the scooter in stock. Patient asking if an order can be faxed to [facility]. Please fax order to [phone]. Patient asking tor a return call.No chief complaint on file. Patient has been identified by name and birthdate. Duration of symptoms: N/A Person calling: self Call patient at: on cell [phone] (home) [phone] (cell) Was an appointment scheduled: No Closing statement: Results or non-symptom based questions: Thank you for calling [facility], your call will be returned within the next business day. Veronica Richard documented in this encounter [facility] 06-08-2021 Miscellaneous Notes Script for Novolog [...] Amadeo Mar RN documented in this encounter [facility] 06-08-2021 Miscellaneous Notes PharmD completed [employer] CMN form. PCP signed form and chart note and faxed to [facility] today. Kim La PharmD, [facility] Primary Care Clinical Pharmacist Julia Gu [facility] documented in this encounter [facility] 06-08[facility] History of Present illness Narrative [...] a protein shake) Beverages are limited. Drinks [place] Crush (its the only thing she can stomach; 1 can lasts 1 day) MEDICATIONS: Pill bottles are not present Adherence: denies missed doses Pharm[facility]: [facility]: [place] [facility] Medicare + [facility] Affordability: no issues Diabetes supplies: [email or web address] System: pill box ACTIVE PROBLEM LIST WOUND [...] (Hcc) Krueger's Palsy Coronary Artery Disease Involving Council Coronary Artery of Council Heart Without Angina Pectoris Stable Angina (Hcc) [...] hernia 12/30/2008 Liver replaced by transplant ([facility]) 2008 - Cirrhosis s/p OLT 2008 - [...] application for Dexcom G6, will apply to [employer] to see if that is a preferred [...] verbalized understanding of instructions. Kim La PharmD, [facility] Primary Care Clinical Pharmacist Julia Gu [facility] The majority of the pharmacy visit (> 50%) was spent counseling and/or coordinating care for the patient. interaction: face to face time was 55 minutes. documented in this [facility] 06-08-2021 Instructions Kim La RPh - 06/08/2021 3:00 PM EDT INCREASE Lantus to 50 units twice daily INCREASE Novolog to 17 units with meals Continue monitoring your blood sugars. PharmD will work on getting order submitted for continuous glucose monitor. Contact PharmD if any issues with low blood sugars. documented in this [facility] 06-08-2021 Miscellaneous Notes Addended by: KIM LA on: 06/08/2021 04:09 PM Modules accepted: Orders documented in this encounter [facility] 06-02-2021 Miscellaneous Notes This was faxed 03/29/21. Will refax today 06/02. Patient is calling in today still waiting on scooter. Keny is still waiting on the actual order for this. Keny phone number is [phone] If you can please send an order [...] work rec'd from the office from whatever [employer] company pt is using for this. Please set the prior auth in motion Patient reports [employer] tells her pcp needs to do a PA for the electric scooter. Prior Authorization Documentation Prior authorization requested for the following medication: Medication: Electric Scooter Provider: [employer] Name: [employer] Phone number: [phone] Patient ID number: [id number] Pharmacy Name: [facility] - will not get more until August or September Pharmacy Telephone number: Will find out from [employer] where can get one from. Patient also wants pcp to know she had heart cath done on , and will need triple bypass. Patient reports she spoke with surgeon yesterday- and surgeon will call her next at 8:30 am to let her know. 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 12/07/2016 0 11/29/2020 Last [...] of this encounter (statuses as of 06/08/2021) [facility] of Past [facility] Narrative* Problem [...] of this encounter (statuses as of 06/08/2021) [facility] of Past illness Narrative* Problem [...] of this encounter (statuses as of 06/09/2021) [facility] of Past illness Narrative* Problem Noted Date Resolved Date Acute renal failure superimp osed on stage 4 chronic kidney disease 01/02/2020 11/29/2020 Shortness of breath 11/23/2019 11/29/2020 Meralgia paresthetica of right side 02/20/2018 06/09/2018 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 12/07/2016 0 11/29/2020 Last [...] of this encounter (statuses as of 06/13/2021) [facility] of Past illness Narrative* Problem Noted Date Resolved Date Acute renal failure superimp osed on stage 4 chronic kidney disease 01/02/2020 11/29/2020 Shortness of breath 11/23/2019 11/29/2020 Meralgia paresthetica of right side 02/20/2018 06/09/2018 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 12/07/2016 0 11/29/2020 Last [...] of this encounter (statuses as of 06/15/2021) [facility] of Past illness Narrative* Problem Noted Date Resolved Date Acute renal failure superimp osed on stage 4 chronic kidney disease 01/02/2020 11/29/2020 Shortness of breath 11/23/2019 11/29/2020 Meralgia paresthetica of right side 02/20/2018 06/09/2018 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 12/07/2016 0 11/29/2020 Last [...] of this encounter (statuses as of 06/29/2021) [facility] of Past [facility] Narrative* Problem Noted Date Resolved Date Acute renal failure superimp osed on stage 4 chronic kidney disease 01/02/2020 11/29/2020 Shortness of breath 11/23/2019 11/29/2020 Meralgia paresthetica of right side 02/20/2018 06/09/2018 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 12/07/2016 0 11/29/2020 Last [...] of this encounter (statuses as of 07/03/2021) [facility] of [facility] Narrative* Problem [...] of this encounter (statuses as of 07/09/2021) [facility] of [facility] Narrative* Problem Noted Date Resolved Date Acute renal failure superimp osed on stage 4 chronic kidney disease 01/02/2020 11/29/2020 Shortness of breath 11/23/2019 11/29/2020 Meralgia paresthetica of right side 02/20/2018 06/09/2018 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 12/07/2016 0 11/29/2020 Last [...] of this encounter (statuses as of 07/11/2021) [facility] of [facility] Narrative* Problem Noted Date Resolved Date Acute renal failure superimp osed on stage 4 chronic kidney disease 01/02/2020 11/29/2020 Shortness of breath 11/23/2019 11/29/2020 Meralgia paresthetica of right side 02/20/2018 06/09/2018 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 12/07/2016 0 11/29/2020 Last [...] of this encounter (statuses as of 07/12/2021) [facility] Narrative* Problem Noted Date Resolved Date Acute renal failure superimp osed on stage 4 chronic kidney disease 01/02/2020 11/29/2020 Shortness of breath 11/23/2019 11/29/2020 Meralgia paresthetica of right side 02/20/2018 06/09/2018 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 12/07/2016 0 11/29/2020 Last [...] of this encounter (statuses as of 07/13/2021) [facility] Narrative* Problem [...] of this encounter (statuses as of 07/13/2021) [facility] Narrative* Problem [...] of this encounter (statuses as of 07/14/2021) [facility] of [facility] Narrative* Problem Noted Date Resolved Date Acute renal failure superimp osed on stage 4 chronic kidney disease 01/02/2020 11/29/2020 Shortness of breath 11/23/2019 11/29/2020 Meralgia paresthetica of right side 02/20/2018 06/09/2018 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 12/07/2016 0 11/29/2020 Last [...] of this encounter (statuses as of 08/03/2021) [facility] Narrative* Problem Noted Date Resolved Date Acute renal failure superimp osed on stage 4 chronic kidney disease 01/02/2020 11/29/2020 Shortness of breath 11/23/2019 11/29/2020 Meralgia paresthetica of right side 02/20/2018 06/09/2018 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 12/07/2016 0 11/29/2020 Last [...] of this encounter (statuses as of 08/08/2021) [facility] Narrative* Problem Noted Date Resolved Date Acute renal failure superimp osed on stage 4 chronic kidney disease 01/02/2020 11/29/2020 Shortness of breath 11/23/2019 11/29/2020 Meralgia paresthetica of right side 02/20/2018 06/09/2018 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 12/07/2016 0 11/29/2020 Last [...] of this encounter (statuses as of 08/09/2021) [facility] N[facility]ative* Problem [...] of this encounter (statuses as of 08/10/2021) [facility] Narrative* Problem Noted Date Resolved Date Acute renal failure superimp osed on stage 4 chronic kidney disease 01/02/2020 11/29/2020 Shortness of breath 11/23/2019 11/29/2020 Meralgia paresthetica of right side 02/20/2018 06/09/2018 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 12/07/2016 0 11/29/2020 Last [...] of this encounter (statuses as of 08/14/2021) [facility] Narrative* Problem [...] of this encounter (statuses as of 08/14/2021) [facility] Narrative* Problem [...] of this encounter (statuses as of 08/21/2021) [facility] Narrative* Problem Noted Date Resolved Date Acute renal failure superimp osed on stage 4 chronic kidney disease 01/02/2020 11/29/2020 Shortness of breath 11/23/2019 11/29/2020 Meralgia paresthetica of right side 02/20/2018 06/09/2018 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 12/07/2016 0 11/29/2020 Last [...] of this encounter (statuses as of 08/25/2021) [facility] Narrative* Problem Noted Date Resolved Date Acute renal failure superimp osed on stage 4 chronic kidney disease 01/02/2020 11/29/2020 Shortness of breath 11/23/2019 11/29/2020 Meralgia paresthetica of right side 02/20/2018 06/09/2018 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 12/07/2016 0 11/29/2020 Last [...] of this encounter (statuses as of 08/31/2021) [facility] Narrative* Problem [...] of this encounter (statuses as of 09/06/2021) [facility] Narrative* Problem Noted Date Resolved Date Acute renal failure superimp osed on stage 4 chronic kidney disease 01/02/2020 11/29/2020 Shortness of breath 11/23/2019 11/29/2020 Meralgia paresthetica of right side 02/20/2018 06/09/2018 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 12/07/2016 0 11/29/2020 Last [...] of this encounter (statuses as of 09/06/2021) [facility] Narrative* Problem Noted Date Resolved Date Acute renal failure superimp osed on stage 4 chronic kidney disease 01/02/2020 11/29/2020 Shortness of breath 11/23/2019 11/29/2020 Meralgia paresthetica of right side 02/20/2018 06/09/2018 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 12/07/2016 0 11/29/2020 Last [...] of this encounter (statuses as of 09/07/2021) [facility] Narrative* Problem [...] of this encounter (statuses as of 09/07/2021) [facility] Narrative* Problem Noted Date Resolved Date Acute renal failure superimp osed on stage 4 chronic kidney disease 01/02/2020 11/29/2020 Shortness of breath 11/23/2019 11/29/2020 Meralgia paresthetica of right side 02/20/2018 06/09/2018 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 12/07/2016 0 11/29/2020 Last [...] of this encounter (statuses as of 09/07/2021) [facility] Narrative* Problem Noted Date Resolved Date Acute renal failure superimp osed on stage 4 chronic kidney disease 01/02/2020 11/29/2020 Shortness of breath 11/23/2019 11/29/2020 Meralgia paresthetica of right side 02/20/2018 06/09/2018 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 12/07/2016 0 11/29/2020 Last [...] of this encounter (statuses as of 09/11/2021) [facility] Narrative* Problem Noted Date Resolved Date Acute renal failure superimp osed on stage 4 chronic kidney disease 01/02/2020 11/29/2020 Shortness of breath 11/23/2019 11/29/2020 Meralgia paresthetica of right side 02/20/2018 06/09/2018 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 12/07/2016 0 11/29/2020 Last [...] of this encounter (statuses as of 09/12/2021) [facility] Narrative* Problem Noted Date Resolved Date Acute renal failure superimp osed on stage 4 chronic kidney disease 01/02/2020 11/29/2020 Shortness of breath 11/23/2019 11/29/2020 Meralgia paresthetica of right side 02/20/2018 06/09/2018 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 12/07/2016 0 11/29/2020 Last [...] of this encounter (statuses as of 09/22/2021) [facility] Narrative* Problem [...] of this encounter (statuses as of 09/26/2021) [facility] Narrative* Problem [...] of this encounter (statuses as of 09/27/2021) [facility] Narrative* Problem Noted Date Resolved Date Acute renal failure superimp osed on stage 4 chronic kidney disease 01/02/2020 11/29/2020 Shortness of breath 11/23/2019 11/29/2020 Meralgia paresthetica of right side 02/20/2018 06/09/2018 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 12/07/2016 0 11/29/2020 Last [...] of this encounter (statuses as of 09/28/2021) [facility] Narrative* Problem Noted Date Resolved Date Acute renal failure superimp osed on stage 4 chronic kidney disease 01/02/2020 11/29/2020 Shortness of breath 11/23/2019 11/29/2020 Meralgia paresthetica of right side 02/20/2018 06/09/2018 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 12/07/2016 0 11/29/2020 Last [...] of this encounter (statuses as of 09/28/2021) [facility] Narrative* Problem Noted Date Resolved Date Acute renal failure superimp osed on stage 4 chronic kidney disease 01/02/2020 11/29/2020 Shortness of breath 11/23/2019 11/29/2020 Meralgia paresthetica of right side 02/20/2018 06/09/2018 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 12/07/2016 0 11/29/2020 Last [...] of this encounter (statuses as of 10/09/2021) [facility] Narrative* Problem [...] of this encounter (statuses as of 10/12/2021) [facility] Narrative* Problem Noted Date Resolved Date Acute renal failure superimp osed on stage 4 chronic kidney disease 01/02/2020 11/29/2020 Shortness of breath 11/23/2019 11/29/2020 Meralgia paresthetica of right side 02/20/2018 06/09/2018 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 12/07/2016 0 11/29/2020 Last [...] of this encounter (statuses as of 10/20/2021) [facility] N[facility]ative* Problem [...] of this encounter (statuses as of 10/20/2021) [facility] Narrative* Problem Noted Date Resolved Date Acute renal failure superimp osed on stage 4 chronic kidney disease 01/02/2020 11/29/2020 Shortness of breath 11/23/2019 11/29/2020 Meralgia paresthetica of right side 02/20/2018 06/09/2018 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 12/07/2016 0 11/29/2020 Last [...] of this encounter (statuses as of 10/21/2021) [facility] Narrative* Problem [...] of this encounter (statuses as of 10/23/2021) [facility] Narrative* Problem [...] of this encounter (statuses as of 11/02/2021) [facility] Narrative* Problem Noted Date Resolved Date Acute renal failure superimp osed on stage 4 chronic kidney disease 01/02/2020 11/29/2020 Shortness of breath 11/23/2019 11/29/2020 Meralgia paresthetica of right side 02/20/2018 06/09/2018 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 12/07/2016 0 11/29/2020 Last [...] of this encounter (statuses as of 11/07/2021) [facility] Problem [...] of this encounter (statuses as of 11/15/2021) [facility] Problem [...] of this encounter (statuses as of 11/27/2021) [facility]* Problem [...] of this encounter (statuses as of 12/04/2021) [facility]* Problem Noted Date Resolved Date Acute renal failure superimp osed on stage 4 chronic kidney disease 01/02/2020 11/29/2020 Shortness of breath 11/23/2019 11/29/2020 Meralgia paresthetica of right side 02/20/2018 06/09/2018 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 12/07/2016 0 11/29/2020 Last [...] of this encounter (statuses as of 12/11/2021) [facility]* Problem Noted Date Resolved Date Acute renal failure superimp osed on stage 4 chronic kidney disease 01/02/2020 11/29/2020 Shortness of breath 11/23/2019 11/29/2020 Meralgia paresthetica of right side 02/20/2018 06/09/2018 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 12/07/2016 0 11/29/2020 Last [...] of this encounter (statuses as of 12/12/2021) [facility] Problem [...] of this encounter (statuses as of 12/13/2021) [facility]* Problem [...] of this encounter (statuses as of 01/01/2022) [facility]* Problem Noted Date Resolved Date Acute renal failure superimp osed on stage 4 chronic kidney disease 01/02/2020 11/29/2020 Shortness of breath 11/23/2019 11/29/2020 Meralgia paresthetica of right side 02/20/2018 06/09/2018 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 12/07/2016 0 11/29/2020 Last [...] of this encounter (statuses as of 01/01/2022) [facility] Problem [...] of this encounter (statuses as of 01/01/2022) [facility]* Problem Noted Date Resolved Date Acute renal failure superimp osed on stage 4 chronic kidney disease 01/02/2020 11/29/2020 Shortness of breath 11/23/2019 11/29/2020 Meralgia paresthetica of right side 02/20/2018 06/09/2018 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 12/07/2016 0 11/29/2020 Last [...] of this encounter (statuses as of 01/19/2022) [facility] Problem Noted Date Resolved Date Acute renal failure superimp osed on stage 4 chronic kidney disease 01/02/2020 11/29/2020 Shortness of breath 11/23/2019 11/29/2020 Meralgia paresthetica of right side 02/20/2018 06/09/2018 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 12/07/2016 0 11/29/2020 Last Assessment [...] of this encounter (statuses as of 01/24/2022) [facility] Problem Noted Date Resolved Date Acute renal failure superimp osed on stage 4 chronic kidney disease 01/02/2020 11/29/2020 Shortness of breath 11/23/2019 11/29/2020 Meralgia paresthetica of right side 02/20/2018 06/09/2018 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 12/07/2016 0 11/29/2020 Last [...] of this encounter (statuses as of 01/26/2022) [facility] Problem Noted Date Resolved Date Acute renal failure superimp osed on stage 4 chronic kidney disease 01/02/2020 11/29/2020 Shortness of breath 11/23/2019 11/29/2020 Meralgia paresthetica of right side 02/20/2018 06/09/2018 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 12/07/2016 0 11/29/2020 Last [...] of this encounter (statuses as of 01/29/2022) [facility] Problem Noted Date Resolved Date Acute renal failure superimp osed on stage 4 chronic kidney disease 01/02/2020 11/29/2020 Shortness of breath 11/23/2019 11/29/2020 Meralgia paresthetica of right side 02/20/2018 06/09/2018 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 12/07/2016 0 11/29/2020 Last [...] of this encounter (statuses as of 02/01/2022) [facility] Problem Noted Date Resolved Date Acute renal failure superimp osed on stage 4 chronic kidney disease 01/02/2020 11/29/2020 Shortness of breath 11/23/2019 11/29/2020 Meralgia paresthetica of right side 02/20/2018 06/09/2018 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 12/07/2016 0 11/29/2020 Last [...] of this encounter (statuses as of 02/05/2022) [facility] Problem [...] of this encounter (statuses as of 02/05/2022) [facility]* Problem Noted Date Resolved Date Acute renal failure superimp osed on stage 4 chronic kidney disease 01/02/2020 11/29/2020 Shortness of breath 11/23/2019 11/29/2020 Meralgia paresthetica of right side 02/20/2018 06/09/2018 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 12/07/2016 0 11/29/2020 Last [...] of this encounter (statuses as of 02/09/2022) [facility] Problem Noted Date Resolved Date Acute renal failure superimp osed on stage 4 chronic kidney disease 01/02/2020 11/29/2020 Shortness of breath 11/23/2019 11/29/2020 Meralgia paresthetica of right side 02/20/2018 06/09/2018 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 12/07/2016 0 11/29/2020 Last [...] of this encounter (statuses as of 02/23/2022) [facility] Problem [...] of this encounter (statuses as of 03/19/2022) [facility] Problem [...] of this encounter (statuses as of 04/19/2022) [facility] Problem [...] of this encounter (statuses as of 04/20/2022) [facility] Problem [...] of this encounter (statuses as of 04/24/2022) [facility]* Problem Noted Date Resolved Date Acute renal failure superimp osed on stage 4 chronic kidney disease 01/02/2020 11/29/2020 Shortness of breath 11/23/2019 11/29/2020 Meralgia paresthetica of right side 02/20/2018 06/09/2018 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 12/07/2016 0 11/29/2020 Last [...] of this encounter (statuses as of 05/02/2022) [facility] Problem [...] of this encounter (statuses as of 05/03/2022) [facility] Problem [...] of this encounter (statuses as of 05/03/2022) [facility] Problem [...] of this encounter (statuses as of 05/07/2022) [facility]* Problem Noted Date Resolved Date Acute renal failure superimp osed on stage 4 chronic kidney disease 01/02/2020 11/29/2020 Shortness of breath 11/23/2019 11/29/2020 Meralgia paresthetica of right side 02/20/2018 06/09/2018 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 12/07/2016 0 11/29/2020 Last [...] of this encounter (statuses as of 05/16/2022) [facility] Problem [...] of this encounter (statuses as of 05/21/2022) [facility]* Problem Noted Date Resolved Date Acute renal failure superimp osed on stage 4 chronic kidney disease 01/02/2020 11/29/2020 Shortness of breath 11/23/2019 11/29/2020 Meralgia paresthetica of right side 02/20/2018 06/09/2018 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 12/07/2016 0 11/29/2020 Last [...] of this encounter (statuses as of 05/23/2022) [facility] Problem Noted Date Resolved Date Acute renal failure superimp osed on stage 4 chronic kidney disease 01/02/2020 11/29/2020 Shortness of breath 11/23/2019 11/29/2020 Meralgia paresthetica of right side 02/20/2018 06/09/2018 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 12/07/2016 0 11/29/2020 Last [...] of this encounter (statuses as of 05/23/2022) [facility] Problem [...] of this encounter (statuses as of 05/23/2022) [facility] Problem Noted Date Resolved Date Acute renal failure superimp osed on stage 4 chronic kidney disease 01/02/2020 11/29/2020 Shortness of breath 11/23/2019 11/29/2020 Meralgia paresthetica of right side 02/20/2018 06/09/2018 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 12/07/2016 0 11/29/2020 Last [...] of this encounter (statuses as of 05/23/2022) [facility] Problem Noted Date Resolved Date Acute renal failure superimp osed on stage 4 chronic kidney disease 01/02/2020 11/29/2020 Shortness of breath 11/23/2019 11/29/2020 Meralgia paresthetica of right side 02/20/2018 06/09/2018 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 12/07/2016 0 11/29/2020 Last [...] of this encounter (statuses as of 05/29/2022) [facility] Problem [...] of this encounter (statuses as of 05/31/2022) [facility] Problem Noted Date Resolved Date Acute renal failure superimp osed on stage 4 chronic kidney disease 01/02/2020 11/29/2020 Shortness of breath 11/23/2019 11/29/2020 Meralgia paresthetica of right side 02/20/2018 06/09/2018 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 12/07/2016 0 11/29/2020 Last [...] of this encounter (statuses as of 06/14/2022) [facility] Problem Noted Date Resolved Date Acute renal failure superimp osed on stage 4 chronic kidney disease 01/02/2020 11/29/2020 Shortness of breath 11/23/2019 11/29/2020 Meralgia paresthetica of right side 02/20/2018 06/09/2018 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 12/07/2016 0 11/29/2020 Last [...] of this encounter (statuses as of 06/15/2022) [facility] Problem [...] of this encounter (statuses as of 06/22/2022) [facility] Problem [...] of this encounter (statuses as of 06/27/2022) [facility] Problem Noted Date Resolved Date Acute renal failure superimp osed on stage 4 chronic kidney disease 01/02/2020 11/29/2020 Shortness of breath 11/23/2019 11/29/2020 Meralgia paresthetica of right side 02/20/2018 06/09/2018 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 12/07/2016 0 11/29/2020 Last [...] of this encounter (statuses as of 07/05/2022) [facility] Problem [...] of this encounter (statuses as of 07/11/2022) [facility] Problem [...] of this encounter (statuses as of 07/12/2022) [facility] Problem [...] of this encounter (statuses as of 07/13/2022) [facility] Problem [...] of this encounter (statuses as of 08/23/2022) [facility] Problem [...] of this encounter (statuses as of 08/29/2022) [facility] Problem [...] of this encounter (statuses as of 08/30/2022) [facility] Problem [...] of this encounter (statuses as of 08/30/2022) [facility] Problem [...] of this encounter (statuses as of 09/26/2022) [facility] Problem Noted Date Diagnosed Date Resolved Date Acute renal failure superimp osed on stage 4 chronic kidney disease 01/02/2020 11/29/2020 Shortness of breath 11/23/2019 11/30/19 Meralgia paresthetica of right side 02/20/2018 06/09/2018 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 12/07/2016 11/29/2020 Last Assessment [...] of this encounter (statuses as of 09/27/2022) [facility] Problem [...] of this encounter (statuses as of 10/24/2022) [facility] Problem [...] of this encounter (statuses as of 10/26/2022) [facility] Problem [...] of this encounter (statuses as of 10/27/2022) [facility] Problem [...] of this encounter (statuses as of 10/28/2022) [facility] Problem [...] of this encounter (statuses as of 11/07/2022) [facility] Problem [...] of this encounter (statuses as of 11/21/2022) [facility] Problem Noted Date Diagnosed Date Resolved Date Acute renal failure superimp osed on stage 4 chronic kidney disease 01/02/2020 11/29/2020 Shortness of breath 11/23/2019 11/30/19 21 [place] paresthetica of right side 02/20/2018 06/09/2018 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 12/07/2016 11/29/2020 Last Assessment [...] of this encounter (statuses as of 11/23/2022) [facility] Problem [...] of this encounter (statuses as of 11/27/2022) [facility] Problem [...] of this encounter (statuses as of 12/19/2022) [facility] Problem Noted Date Diagnosed Date Resolved Date Acute renal failure superimp osed on stage 4 chronic kidney disease 01/02/2020 11/29/2020 Shortness of breath 11/23/2019 11/30/19 Meralgia paresthetica of right side 02/20/2018 06/09/2018 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 12/07/2016 11/29/2020 Last Assessment [...] of this encounter (statuses as of 12/20/2022) [facility] Problem [...] of this encounter (statuses as of 12/25/2022) [facility] Problem [...] of this encounter (statuses as of 12/27/2022) [facility] Problem [...] of this encounter (statuses as of 01/05/2023) [facility] Problem Noted Date Diagnosed Date Resolved Date Acute renal failure superimp osed on stage 4 chronic kidney disease 01/02/2020 11/29/2020 Shortness of breath 11/23/2019 11/30/19 21 [place] paresthetica of right side 02/20/2018 06/09/2018 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 12/07/2016 11/29/2020 Last Assessment [...] of this encounter (statuses as of 01/06/2023) [facility] Problem Noted Date Diagnosed Date Resolved Date Acute renal failure superimp osed on stage 4 chronic kidney disease 01/02/2020 11/29/2020 Shortness of breath 11/23/2019 11/30/19 21 [place] paresthetica of right side 02/20/2018 06/09/2018 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 12/07/2016 11/29/2020 Last Assessment [...] of this encounter (statuses as of 01/06/2023) [facility] Problem [...] of this encounter (statuses as of 01/09/2023) [facility] Problem Noted Date Diagnosed Date Resolved Date Acute renal failure superimp osed on stage 4 chronic kidney disease 01/02/2020 11/29/2020 Shortness of breath 11/23/2019 11/30/19 21 [place] paresthetica of right side 02/20/2018 06/09/2018 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 12/07/2016 11/29/2020 Last Assessment [...] of this encounter (statuses as of 01/10/2023) [facility] Problem [...] of this encounter (statuses as of 01/10/2023) [facility] Problem [...] of this encounter (statuses as of 01/11/2023) [facility] Problem Noted Date Diagnosed Date Resolved Date Acute renal failure superimp osed on stage 4 chronic kidney disease 01/02/2020 11/29/2020 Shortness of breath 11/23/2019 11/30/19 Meralgia paresthetica of right side 02/20/2018 06/09/2018 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 12/07/2016 11/29/2020 Last Assessment [...] of this encounter (statuses as of 01/11/2023) [facility] Problem Noted Date Diagnosed Date Resolved Date Acute renal failure superimp osed on stage 4 chronic kidney disease 01/02/2020 11/29/2020 Shortness of breath 11/23/2019 11/30/19 Meralgia paresthetica of right side 02/20/2018 06/09/2018 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 12/07/2016 11/29/2020 Last Assessment [...] of this encounter (statuses as of 01/15/2023) [facility] Problem Noted Date Diagnosed Date Resolved Date Acute renal failure superimp osed on stage 4 chronic kidney disease 01/02/2020 11/29/2020 Shortness of breath 11/23/2019 11/30/19 21 [place] paresthetica of right side 02/20/2018 06/09/2018 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 12/07/2016 11/29/2020 Last Assessment [...] of this encounter (statuses as of 01/15/2023) [facility] Problem [...] of this encounter (statuses as of 01/15/2023) [facility] Problem [...] of this encounter (statuses as of 01/17/2023) [facility] Problem [...] of this encounter (statuses as of 01/18/2023) [facility] Problem [...] of this encounter (statuses as of 01/22/2023) [facility] Problem Noted Date Diagnosed Date Resolved Date Acute renal failure superimp osed on stage 4 chronic kidney disease 01/02/2020 11/29/2020 Shortness of breath 11/23/2019 11/30/19 21 [place] paresthetica of right side 02/20/2018 06/09/2018 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 12/07/2016 11/29/2020 Last Assessment [...] of this encounter (statuses as of 02/12/2023) [facility] Problem [...] of this encounter (statuses as of 02/12/2023) [facility] Diagnosis Type 2 diabetes mellitus with microalbuminuria, with long-term current use of insulin (HCC)- Primary Medication management Encounter for long-term (current) use of other medications [facility] Bilateral wrist pain- Primary Pain in joint, forearm Chronic pain of left wrist Acute pain of right wrist [facility] of right [facility] Diagnosis Type 2 diabetes mellitus with hyperosmolar coma, with long-term current use of insulin (HCC)- Primary [facility] Diagnosis Bilateral wrist pain Pain in joint, forearm Chronic pain of left wrist Acute pain of right wrist [facility] Diagnosis Redness and swelling of thigh- Primary Pain of right lower extremity Primary hypertension Unspecified essential hypertension Fever, unspecified fever cause Nausea Nausea alone Swelling of limb [facility] Diagnosis Lump of right thigh- Primary Tenderness of right lower extremity [facility] Diagnosis Lump of right thigh- Primary Localized swelling, mass, or lump of left upper extremity [facility] Diagnosis Localized swelling, mass, or lump of right lower extremity [facility] Diagnosis Type 2 diabetes mellitus with microalbuminuria, with long-term current use of insulin (HCC)- Primary Medication management Encounter for long-term (current) use of other medications [facility] Diagnosis CKD (chronic kidney disease) stage 4, GFR 15-29 ml/min (HCC)- Primary Chronic kidney disease, Stage IV (severe) [facility] Diagnosis Localized swelling, mass, or lump of right lower extremity [facility] Diagnosis Lump of right thigh- Primary Type 2 diabetes mellitus with hyperosmolar coma, with long-term current use of insulin ([facility] Diagnosis Type 2 diabetes mellitus with microalbuminuria, with long-term current use of insulin ([facility])- Primary [facility] Diagnosis Abnormal vaginal bleeding- Primary Other specified noninflammatory disorder of vagina Chronic edema Edema Sleep disturbances Sleep disturbance, unspecified Acute otitis externa of right ear, unspecified type Pelvic cramping Unspecified symptom associated with female genital organs [facility] Diagnosis Abnormal vaginal bleeding- Primary Other specified noninflammatory disorder of vagina [facility] Diagnosis Abnormal vaginal bleeding Other specified noninflammatory disorder of vagina [facility] Diagnosis Type 2 diabetes mellitus with microalbuminuria, with long-term current use of insulin ([facility])- Primary Medication management Encounter for long-term (current) use of other medications [facility] Diagnosis History of recent hospitalization- Primary Personal history of unspecified disease Diarrhea, unspecified type Lower abdominal pain Abdominal pain, other specified site Hyperkalemia Hyperpotassemia Cellulitis, unspecified cellulitis site Anemia of chronic kidney failure, stage 4 (severe) ([facility]) [facility] Diagnosis Diarrhea, unspecified type- Primary [facility] Diagnosis Acquired hypothyroidism Unspecified hypothyroidism [facility] Diagnosis Chronic edema Edema [facility] Diagnosis Diarrhea, unspecified type- Primary Right wrist pain Pain in joint, forearm [facility] Diagnosis Dermatitis Contact dermatitis and other eczema, due to unspecified cause [facility] Diagnosis Dermatitis- Primary Contact [...] Hypertension, unspecified type [facility] Diagnosis Disorder of liver- Primary Unspecified disorder of liver Liver replaced by transplant (HCC) Liver replaced by transplant [facility] Diagnosis Type 2 diabetes mellitus with hyperosmolarity 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, with long-term current use of insulin (HCC)- Primary End stage kidney disease (HCC) End stage renal disease Dizziness Dizziness and giddiness Hypotension, unspecified hypotension type Other fatigue Acquired hypothyroidism Unspecified hypothyroidism Chronic diarrhea Diarrhea Liver replaced by transplant (HCC) Liver replaced by transplant [facility] Diagnosis Diarrhea, unspecified type- Primary [facility] Diagnosis Encounter for screening mammogram for breast cancer [facility] Diagnosis Hypothyroidism, unspecified type [facility] Diagnosis Pre-transplant evaluation for kidney transplant- Primary Other specified pre-operative examination [facility] Diagnosis Type 2 diabetes mellitus with microalbuminuria, with long-term current use of insulin (HCC)- Primary [facility] Diagnosis Type 2 diabetes mellitus with hyperosmolarity 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, with long-term current use of insulin (HCC)- Primary [facility] Diagnosis Type 2 diabetes mellitus with microalbuminuria, with long-term current use of insulin (HCC)- Primary [facility] Diagnosis Hypothyroidism, unspecified type Diarrhea, unspecified type Sleep disturbances Sleep disturbance, unspecified Mixed hyperlipidemia Chronic edema Edema [facility]* Diagnosis Right wrist pain Pain in joint, forearm [facility] Diagnosis Type 2 diabetes mellitus with hyperosmolarity 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, with long-term current use of insulin (HCC)- Primary [facility] Diagnosis Pre-transplant evaluation for kidney transplant- Primary Other specified pre-operative examination [facility] Diagnosis Chronic pain of both knees- Primary [facility] Diagnosis Pre-transplant evaluation for ESRD (end stage renal disease)- Primary Other specified pre-operative examination Liver transplant recipient (HCC) ESRD on dialysis (HCC) End stage renal disease Coronary artery disease involving [place] coronary artery of [place] heart without angina pectoris Type 2 diabetes mellitus with hyperosmolarity 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, with long-term current use of insulin ([facility]) Primary hypertension Unspecified essential hypertension [facility] Diagnosis Awaiting organ transplant- Primary Awaiting organ transplant status Dietary counseling and surveillance Dietary surveillance and counseling [facility] Diagnosis Type 2 diabetes mellitus with hyperosmolarity 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, with long-term current use of insulin ([facility])- Primary [facility]* Diagnosis Dermatitis Contact dermatitis and other eczema, due to unspecified cause [facility] Diagnosis Pre-transplant evaluation for end stage renal disease- Primary Other specified pre-operative examination Pre-operative cardiovascular examination History of heart artery stent Postsurgical percutaneous transluminal coronary angioplasty status Awaiting organ transplant Awaiting organ transplant status [facility]* Diagnosis Rash- Primary Rash and other nonspecific skin eruption Itching Unspecified pruritic disorder [facility] Diagnosis Left hip pain- Primary Pain in joint, pelvic region and thigh Fall, initial encounter [facility]* Diagnosis Type 2 diabetes mellitus with hyperosmolarity 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, with long-term current use of insulin ([facility]) documented in this encounter [facility] note* Diagnosis Left knee pain, unspecified chronicity- Primary Left hip pain Pain in joint, pelvic region and thigh [facility] Diagnosis Pre-transplant evaluation for kidney transplant- Primary Other specified pre-operative examination [facility] Diagnosis Nausea- Primary Nausea alone Epigastric pain Abdominal pain, epigastric Type 2 diabetes mellitus with hyperosmolarity 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, with long-term current use of insulin ([facility]) documented in this encounter [facility] note* Diagnosis Type 2 diabetes mellitus with hyperosmolarity 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, with long-term current use of insulin ([facility]) [facility] Diagnosis Encounter for screening for osteoporosis Special screening for osteoporosis Asymptomatic postmenopausal status [facility] Diagnosis Encounter for screening mammogram for breast cancer documented in this encounter [facility] note* Diagnosis Epigastric pain- Primary Abdominal pain, epigastric Nausea Nausea alone Left knee pain, unspecified chronicity Medication management Encounter for long-term (current) use of other medications Encounter for immunization Need for other specified prophylactic vaccination against single bacterial disease documented in this encounter [facility] note* Diagnosis Liver replaced by transplant (HCC)- Primary Liver replaced by transplant [facility] Diagnosis Preop cardiovascular exam- Primary Pre-operative cardiovascular examination documented in this encounter [facility] note* Diagnosis Sleep disturbances Sleep disturbance, unspecified documented in this encounter [facility] for referral (narrative)* Diagnostic Procedure Only (Routine) - Closed Specialty Diagnoses / Procedures Referred By Ibrahima dick Referred To Contact XR IMAGING Diagnoses Bilateral wrist pain Chronic pain of left wrist Acute pain of right wrist Procedures XR HAND GENERAL 3V PA/LAT/OBL BILATERAL RADEX HAND MINIMUM 3 VIEWS Josse Lance APRN.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 [address] [place] [address] Xr Imaging Referral ID Status Reason Start Date Expiration Date V isits Requested Visits Authorized [id number] Closed Auto-Generate d Referral 07/03/2021 08/02/2022 1 1 * Consult, Test, Treat (Routine) - Pending Review Specialty Diagnoses / Procedures Referred By Ibrahima dick Referred To Contact Orthopedics Diagnoses Bilateral wrist pain Chronic pain of left wrist Acute pain of right wrist Procedures CONSULT TO ORTHOPAEDICS OFFICE/OUT[facility]IENT [facility] MDM 60-74 MINUTES Josse Lance APRN.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 [address] [place] [address] Referral ID Status Reason Start Date Expiration Date Visits Requested Visits Authorized [id number] Pending Review PCP Requested Referral 07/03/2021 07/03/2022 1 1 * Diagnostic Procedure Only (Routine) - Closed Specialty Diagnoses / Procedures Referred By Contac t Referred To Contact XR IMAGING Diagnoses Bilateral wrist pain Chronic pain of left wrist Acute pain of right wrist Procedures XR HAND GENERAL 3V PA/LAT/OBL LEFT RADEX HAND MINIMUM 3 VIEWS Josse Lance APRN.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 [address] [place] [address] Xr Imaging Referral ID Status Reason Start Date Expiration Date V isits Requested Visits Authorized [id number] Closed Auto-Generate d Referral 07/03/2021 08/02/2022 1 1 * Diagnostic Procedure Only (Routine) - Closed Specialty Diagnoses / Procedures Referred By Contac t Referred To Contact XR IMAGING Diagnoses Bilateral wrist pain Chronic pain of left wrist Acute pain of right wrist Procedures XR HAND GENERAL 3V PA/LAT/OBL RIGHT RADEX HAND MINIMUM 3 VIEWS Josse Lance APRN.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 [address] [place] [address] Xr Imaging Referral ID Status Reason Start Date Expiration Date V isits Requested Visits Authorized [id number] Closed Auto-Generate d Referral 07/03/2021 08/02/2022 1 1 [facility] for referral (narrative)* Outpatient Procedure (Urgent) - Authorized Specialty Diagnoses / Procedures Referred By Contac t Referred To Contact [facility] Diagnoses Redness and swelling of thigh Swelling of limb Procedures US LEG VEIN DVT UNL VAS LAB DUP-SCAN XTR VEINS UNILATERAL/LIMITED STUDY Jame Hunt MD [address] [place] [address] [facility] [place] [address] [place] [address] Referral ID Status Reason Start Date Expiration Date Visits Requested Visits Authorized [id number] Authorized Auto-Generat ed Referral 08/14/2021 03/03/2022 1 1 [facility] for referral (narrative)* Diagnostic Procedure Only (Routine) - Authorized Specialty Diagnoses / Procedures Referred By Contac t Referred To Contact US IMAGING Diagnoses Lump of right thigh Tenderness of right lower extremity Procedures US EXTREMITY MASS/FLUID COLLECTION RT Silva Plasencia APRN.[employer] [address] [place] [address] Us Imaging Referral ID Status Reason Start Date Expiration Date Visits Requested Visits Authorized [id number] Authorized Auto-Generat ed Referral 08/25/2021 09/24/2022 1 1 [facility] for referral (narrative)* Diagnostic Procedure Only (Routine) - Closed Specialty Diagnoses / Procedures Referred By Contac t Referred To Contact MR IMAGING Diagnoses Localized swelling, mass, or lump of right lower extremity Procedures MRI UPPER LEG WO/W IVCON RT MRI LOWER EXTREM OTH/THN JT W/O & W/CONTR MATR Silva Plasencia APRN.[employer] [address] [place] [address] Mr Imaging Referral ID Status Reason Start Date Expiration Date Visits Re quested Visits Authorized [id number] Closed 09/21/2021 10/21/2021 1 1 [facility] for referral (narrative)* Diagnostic Procedure Only (Urgent) - Pending Review Specialty Diagnoses / Procedures Referred By Contac t Referred To Contact US IMAGING Diagnoses Abnormal vaginal bleeding Procedures US FEMALE PELVIS TRANSABD LTD US PELVIC NONOBSTETRIC IMAGE DCMTN LIMITED/F/U Jaci Lucero APRN.[employer] [address] [place] [address] Us Imaging Referral ID Status Reason Start Date Expiration Date Visits Requested Visits Authorized [id number] Pending Review Auto-Generat ed Referral 10/20/2021 11/19/2022 1 1 * Diagnostic Procedure Only (Routine) - Closed Specialty Diagnoses / Procedures Referred By Contac t Referred To Contact US IMAGING Diagnoses Abnormal vaginal bleeding Procedures US FEMALE PELVIS TRANSABD LTD US PELVIC NONOBSTETRIC IMAGE DCMTN LIMITED/F/U Jaci Lucero APRN.[employer] [address] [place] [address] Us Imaging Referral ID Status Reason Start Date Expiration Date V isits Requested Visits Authorized [id number] Closed Auto-Generate d Referral 10/20/2021 11/19/2022 1 1 [facility] for referral (narrative)* Diagnostic Procedure Only (Routine) - Closed Specialty Diagnoses / Procedures Referred By Contac t Referred To Contact US IMAGING Diagnoses Abnormal vaginal bleeding Procedures US FEMALE PELVIS TRANSVAG US TRANSVAGINAL Jaci Lucero APRN.[employer] [address] [place] [address] Us Imaging Referral ID Status Reason Start Date Expiration Date V isits Requested Visits Authorized [id number] Closed Auto-Generate d Referral 10/20/2021 11/19/2022 1 1 [facility] for referral (narrative)* Diagnostic Procedure Only (Routine) - Closed Specialty Diagnoses / Procedures Referred By Contac t Referred To Contact US IMAGING Diagnoses Abnormal vaginal bleeding Procedures US FEMALE PELVIS TRANSVAG US TRANSVAGINAL Jaci Lucero APRN.[employer] [address] [place] [address] Us Imaging Referral ID Status Reason Start Date Expiration Date V isits Requested Visits Authorized [id number] Closed Auto-Generate d Referral 10/20/2021 11/19/2022 1 1 * Diagnostic Procedure Only (Routine) - Closed Specialty Diagnoses / Procedures Referred By Contac t Referred To Contact US IMAGING Diagnoses Abnormal vaginal bleeding Procedures US FEMALE PELVIS TRANSABD LTD US PELVIC NONOBSTETRIC IMAGE DCMTN LIMITED/F/U Jaci Lucero APRN.[employer] [address] [place] [address] Us Imaging Referral ID Status Reason Start Date Expiration Date V isits Requested Visits Authorized [id number] Closed Auto-Generate d Referral 10/20/2021 11/19/2022 1 1 [facility] for referral (narrative)* Diagnostic Procedure Only (Routine) - Authorized Specialty Diagnoses / Procedures Referred By Contac t Referred To Contact BR IMAGING Diagnoses Encounter for screening mammogram for breast cancer Procedures JAY SCREENING SCREENING MAMMOGRAPHY BI 2-VIEW BREAST INC CAD Jame Hunt MD [address] [place] [address] [facility] [address] [place] [address] Referral ID Status Reason Start Date Expiration Date Visits Requested Visits Authorized [id number] Authorized Auto-Generat ed Referral 05/02/2022 06/01/2023 1 1 [facility] for referral (narrative)* Diagnostic Procedure Only (Urgent) - Closed Specialty Diagnoses / Procedures Referred By Contac t Referred To Contact XR IMAGING Diagnoses Left hip pain Fall, initial encounter Procedures XR HIP GENERAL 3V PELV/AP/LAT LEFT RADEX HIP UNILATERAL WITH PELVIS 2-3 VIEWS Erin Plasencia APRN.[employer] [address] [place] [address] [place] [address] Referral ID Status Reason Start Date Expiration Date V isits Requested Visits Authorized [id number] Closed Auto-Generate d Referral 11/07/2022 12/07/2023 1 1 [facility] for referral (narrative)* Diagnostic Procedure Only (Routine) - Closed Specialty Diagnoses / Procedures Referred By Contac t Referred To Contact XR IMAGING Diagnoses Left hip pain Left knee pain, unspecified chronicity Procedures XR KNEE GENERAL 4V AP BOTH/PA BOTH/LAT/MERC LEFT RADIOLOGIC EXAM KNEE COMPLETE 4/MORE VIEWS Ramin Mack PA-C [address] [place] [address] [place] [address] Referral ID Status Reason Start Date Expiration Date V isits Requested Visits Authorized [id number] Closed Auto-Generate d Referral 11/26/2022 12/26/2023 1 1 * Consult, Test, Treat (Routine) - Pending Review Specialty Diagnoses / Procedures Referred By Contac t Referred To Contact Orthopedics Diagnoses Left hip pain Left knee pain, unspecified chronicity Procedures CONSULT TO ORTHOPAEDICS OFFICE/OUTPATIENT [facility] 60-74 MINUTES Charbel Esparza MD [address] [place] [address] Referral ID Status Reason Start Date Expiration Date Visits Requested Visits Authorized [id number] Pending Review PCP Requested Referral 11/26/2022 11/26/2023 1 1 [facility] for referral (narrative)* Diagnostic Procedure Only (Routine) - Closed Specialty Diagnoses / Procedures Referred By Ibrahima t Referred To Contact BR IMAGING Diagnoses Encounter for screening mammogram for breast cancer Procedures JAY SCREENING SCREENING MAMMOGRAPHY BI 2-VIEW BREAST INC Jame Bustos MD [address] [place] [address] [facility] [address] [place] [address] Referral ID Status Reason Start Date Expiration Date V isits Requested Visits Authorized [id number] Closed Auto-Generate d Referral 05/02/2022 06/01/2023 1 1 [facility] for visit Narrative* Diagnostic Procedure Only (Routine) - Closed Specialty Diagnoses / Procedures Referred By Contac t Referred To Contact MR IMAGING Diagnoses Localized swelling, mass, or lump of right lower extremity Procedures MRI UPPER LEG WO/W IVCON RT MRI LOWER EXTREM OTH/THN JT W/O & W/CONTR Silva Rowland APRN.[employer] [address] [place] [address] Mr Imaging Referral ID Status Reason Start Date Expiration Date Visits Re quested Visits Authorized [id number] Closed 09/21/2021 10/21/2021 1 1 [facility] Diagnostic Procedure Only (Routine) - Closed Specialty Diagnoses / Procedures Referred By Ibrahima dick Referred To Contact BR IMAGING Diagnoses Encounter for screening mammogram for breast cancer Procedures JAY SCREENING SCREENING MAMMOGRAPHY BI 2-VIEW BREAST INC Jame Bustos MD [address] [place] [address] [facility] [address] [place] [address] Referral ID Status Reason Start Date Expiration Date V isits Requested Visits Authorized [id number] Closed Auto-Generate d Referral 05/02/2022 06/01/2023 1 1 [facility] Family History No Family History Records FoundNo Family History Records FoundNo Family History Records FoundNo Family History Records FoundNo Family History Records Found Advance Directives No Advanced Directives Records FoundDocuments on File Type Date Recorded Patient Director Of Individual Giving Expl anation Advance Directive(s) Advance Directive(s) 04/25/2021 [...] Documents on File Type Date Recorded Patient Director Of Individual Giving Expl anation Advance Directive(s) Advance Directive(s) 04/25/2021 [...] Documents on File Type Date Recorded Patient Director Of Individual Giving Expl anation Advance Directive(s) Advance Directive(s) 07/30/2018 8:17 AM Documents on File Type Date Recorded Patient Director Of Individual Giving Expl anation Advance Directive(s) Advance Directive(s) 07/30/2018 [...] OTH/THN JT W/O & W/CONTR Silva Rowland APRN.[employer] [address] [place] [address] Mr Imaging Referral ID Status Reason Start Date Expiration Date Visits Requested Visits Authorized [id number] Pending Review Auto-Generat ed Referral 09/06/2021 10/06/2022 [...] MD [address] [place] [address] [facility] [address] [place] [id number] Referral ID Status Reason Start Date Expiration Date Visits Requested Visits Authorized [id number] Pending Review Financial Clearance Required - [employer] 04/24/2022 04/24/2023 99 99 Specialty Diagnoses / Procedures Referred By Contac t Referred To Contact Gastroenterology Diagnoses Chronic diarrhea Procedures CONSULT TO GASTROENTEROLOGY OFFICE/OUTPATIENT [facility] 60-74 MINUTES Silva Plasencia APRN.[employer] [address] [place] [address] Referral ID Status Reason Start Date Expiration Date Visits Requested Visits Authorized [id number] Pending Review PCP Requested Referral 05/02/2022 05/02/2023 1 1 Specialty Diagnoses / Procedures Referred By Contac t Referred To Contact Erin Plasencia APRN.[employer] [address] [place] [address] Referral ID Status Reason Start Date Expiration Date Visits Re quested Visits Authorized [id number] Closed 1 1 Referral ID Status Reason Start Date Expiration Date Visits Re quested Visits Authorized [id number] Closed 1 1 Specialty Diagnoses / Procedures Referred By Contac t Referred To Contact Gastroenterology Diagnoses Pre-transplant evaluation for end stage renal disease Awaiting organ transplant Procedures CONSULT TO GASTROENTEROLOGY OFFICE/OUTPATIENT [facility] 60-74 MINUTES Kel Victoria MD [address] [place] [address] Referral ID Status Reason Start Date Expiration Date Visits Requested Visits Authorized [id number] Pending Review PCP Requested Referral 10/03/2022 09/26/2023 1 1 Specialty Diagnoses / Procedures Referred By Contac t Referred To Contact Cardiology Diagnoses Pre-transplant evaluation for end stage renal disease Pre-operative cardiovascular examination History of heart artery stent Procedures CONSULT TO CARDIOLOGY OFFICE/OUTPATIENT [facility] 60-74 MINUTES Kel Victoria MD [address] [place] [address] Referral ID Status Reason Start Date Expiration Date Visits Requested Visits Authorized [id number] Pending Review PCP Requested Referral 10/03/2022 09/26/2023 1 1 Specialty Diagnoses / Procedures Referred By Contac t Referred To Contact Diagnoses Type 2 diabetes mellitus with hyperosmolarity 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, with long-term current use of insulin (HCC) Ramin Mack PA-C [address] [place] [address] Referral ID Status Reason Start Date Expiration Date Visits Re quested Visits Authorized [id number] Closed 1 1 Specialty Diagnoses / Procedures Referred By Geminiac t Referred To Contact Diagnoses Pre-transplant evaluation for kidney transplant Procedures CONSULT TO HEPATOLOGY OFFICE/OUTPATIENT [facility] [place] [facility] 60-74 MINUTES Kel Victoria [facility] [address] [facility] [place] [address] Referral ID Status Reason Start Date Expiration Date Visits Requested Visits Authorized [id number] Pending Review PCP Requested Referral 12/19/2023 1 1 Specialty Diagnoses / Procedures Referred By Ibrahima t Referred To Contact Diagnoses Preop cardiovascular exam Procedures CARDIOVASCULAR MEDICINE OP FOLLOW UP APPT ORDER Lizeth Bey MD [address] [place] [id number] Referral ID Status Reason Start Date Expiration Date Visits Requested Visits Authorized [id number] Ref Not Required PCP Requested Referral 01/10/2023 01/10/2024 1 1 Additional Source Comments INFORMATION SOURCE (unrecogn ized section and content) DATE CREATED AUTHOR AUTHOR'S ORGANIZ ATION 12/07/[address] [facility] DATE CREATED AUTHOR AUTHOR'S ORGANIZ ATION 05/03/2020 [facility] DATE CREATED AUTHOR AUTHOR'S ORGANIZ ATION 01/12/2023 [facility] DATE CREATED AUTHOR AUTHOR'S ORGANIZ ATION 04/05/2023 [facility] Source Comments (unrecognize d section and content) In the event this informatio n is protected by the Federal Confidentiality of Alcohol and Drug Abuse Patient Records regulations: The Federal rules restrict any use of the information to criminally investigate or prosecute any alcohol or drug abuse patient.[facility] the event this information is protected by the Federal Confidentiality of Alcohol and Drug Abuse Patient Records regulations: The Federal rules restrict any use of the information to criminally investigate or prosecute any alcohol or drug abuse patient.[facility] the event this information is protected by the Federal Confidentiality of Alcohol and Drug Abuse Patient Records regulations: The Federal rules restrict any use of the information to criminally investigate or prosecute any alcohol or drug abuse patient.[facility] the event this information is protected by the Federal Confidentiality of Alcohol and Drug Abuse Patient Records regulations: The Federal rules restrict any use of the information to criminally investigate or prosecute any alcohol or drug abuse patient.[facility] the event this information is protected by the Federal Confidentiality of Alcohol and Drug Abuse Patient Records regulations: The Federal rules restrict any use of the information to criminally investigate or prosecute any alcohol or drug abuse patient.[facility] the event this information is protected by the Federal Confidentiality of Alcohol and Drug Abuse Patient Records regulations: The Federal rules restrict any use of the information to criminally investigate or prosecute any alcohol or drug abuse patient.[facility] the event this information is protected by the Federal Confidentiality of Alcohol and Drug Abuse Patient Records regulations: The Federal rules restrict any use of the information to criminally investigate or prosecute any alcohol or drug abuse patient.[facility] the event this information is protected by the Federal Confidentiality of Alcohol and Drug Abuse Patient Records regulations: The Federal rules restrict any use of the information to criminally investigate or prosecute any alcohol or drug abuse patient.[facility]In the event this information is protected by the Federal Confidentiality of Alcohol and Drug Abuse Patient Records regulations: The Federal rules restrict any use of the information to criminally investigate or prosecute any alcohol or drug abuse patient.[facility] HospitalIn the event this information is protected by the Federal Confidentiality of Alcohol and Drug Abuse Patient Records regulations: The Federal rules restrict any use of the information to criminally investigate or prosecute any alcohol or drug abuse patient.[facility] HospitalIn the event this information is protected by the Federal Confidentiality of Alcohol and Drug Abuse Patient Records regulations: The Federal rules restrict any use of the information to criminally investigate or prosecute any alcohol or drug abuse patient.[facility] HospitalIn the event this information is protected by the Federal Confidentiality of Alcohol and Drug Abuse Patient Records regulations: The Federal rules restrict any use of the information to criminally investigate or prosecute any alcohol or drug abuse patient.[facility] HospitalIn the event this information is protected by the Federal Confidentiality of Alcohol and Drug Abuse Patient Records regulations: The Federal rules restrict any use of the information to criminally investigate or prosecute any alcohol or drug abuse patient.[facility] HospitalIn the event this information is protected by the Federal Confidentiality of Alcohol and Drug Abuse Patient Records regulations: The Federal rules restrict any use of the information to criminally investigate or prosecute any alcohol or drug abuse patient.[facility] HospitalIn the event this information is protected by the Federal Confidentiality of Alcohol and Drug Abuse Patient Records regulations: The Federal rules restrict any use of the information to criminally investigate or prosecute any alcohol or drug abuse patient.[facility] HospitalIn the event this information is protected by the Federal Confidentiality of Alcohol and Drug Abuse Patient Records regulations: The Federal rules restrict any use of the information to criminally investigate or prosecute any alcohol or drug abuse patient.[facility] HospitalIn the event this information is protected by the Federal Confidentiality of Alcohol and Drug Abuse Patient Records regulations: The Federal rules restrict any use of the information to criminally investigate or prosecute any alcohol or drug abuse patient.[facility] HospitalIn the event this information is protected by the Federal Confidentiality of Alcohol and Drug Abuse Patient Records regulations: The Federal rules restrict any use of the information to criminally investigate or prosecute any alcohol or drug abuse patient.[facility] HospitalIn the event this information is protected by the Federal Confidentiality of Alcohol and Drug Abuse Patient Records regulations: The Federal rules restrict any use of the information to criminally investigate or prosecute any alcohol or drug abuse patient.[facility] HospitalIn the event this information is protected by the Federal Confidentiality of Alcohol and Drug Abuse Patient Records regulations: The Federal rules restrict any use of the information to criminally investigate or prosecute any alcohol or drug abuse patient.[facility] HospitalIn the event this information is protected by the Federal Confidentiality of Alcohol and Drug Abuse Patient Records regulations: The Federal rules restrict any use of the information to criminally investigate or prosecute any alcohol or drug abuse patient.[facility] HospitalIn the event this information is protected by the Federal Confidentiality of Alcohol and Drug Abuse Patient Records regulations: The Federal rules restrict any use of the information to criminally investigate or prosecute any alcohol or drug abuse patient.[facility] HospitalIn the event this information is protected by the Federal Confidentiality of Alcohol and Drug Abuse Patient Records regulations: The Federal rules restrict any use of the information to criminally investigate or prosecute any alcohol or drug abuse patient.[facility] HospitalIn the event this information is protected by the Federal Confidentiality of Alcohol and Drug Abuse Patient Records regulations: The Federal rules restrict any use of the information to criminally investigate or prosecute any alcohol or drug abuse patient.[facility] HospitalIn the event this information is protected by the Federal Confidentiality of Alcohol and Drug Abuse Patient Records regulations: The Federal rules restrict any use of the information to criminally investigate or prosecute any alcohol or drug abuse patient.[facility] HospitalIn the event this information is protected by the Federal Confidentiality of Alcohol and Drug Abuse Patient Records regulations: The Federal rules restrict any use of the information to criminally investigate or prosecute any alcohol or drug abuse patient.[facility] HospitalIn the event this information is protected by the Federal Confidentiality of Alcohol and Drug Abuse Patient Records regulations: The Federal rules restrict any use of the information to criminally investigate or prosecute any alcohol or drug abuse patient.[facility] HospitalIn the event this information is protected by the Federal Confidentiality of Alcohol and Drug Abuse Patient Records regulations: The Federal rules restrict any use of the information to criminally investigate or prosecute any alcohol or drug abuse patient.[facility] HospitalIn the event this information is protected by the Federal Confidentiality of Alcohol and Drug Abuse Patient Records regulations: The Federal rules restrict any use of the information to criminally investigate or prosecute any alcohol or drug abuse patient.[facility]In the event this information is protected by the Federal Confidentiality of Alcohol and Drug Abuse Patient Records regulations: The Federal rules restrict any use of the information to criminally investigate or prosecute any alcohol or drug abuse patient.[facility]In the event this information is protected by the Federal Confidentiality of Alcohol and Drug Abuse Patient Records regulations: The Federal rules restrict any use of the information to criminally investigate or prosecute any alcohol or drug abuse patient.[facility] HospitalIn the event this information is protected by the Federal Confidentiality of Alcohol and Drug Abuse Patient Records regulations: The Federal rules restrict any use of the information to criminally investigate or prosecute any alcohol or drug abuse patient.[facility]In the event this information is protected by the Federal Confidentiality of Alcohol and Drug Abuse Patient Records regulations: The Federal rules restrict any use of the information to criminally investigate or prosecute any alcohol or drug abuse patient.[facility] HospitalIn the event this information is protected by the Federal Confidentiality of Alcohol and Drug Abuse Patient Records regulations: The Federal rules restrict any use of the information to criminally investigate or prosecute any alcohol or drug abuse patient.[facility]In the event this information is protected by the Federal Confidentiality of Alcohol and Drug Abuse Patient Records regulations: The Federal rules restrict any use of the information to criminally investigate or prosecute any alcohol or drug abuse patient.[facility]In the event this information is protected by the Federal Confidentiality of Alcohol and Drug Abuse Patient Records regulations: The Federal rules restrict any use of the information to criminally investigate or prosecute any alcohol or drug abuse patient.[facility]In the event this information is protected by the Federal Confidentiality of Alcohol and Drug Abuse Patient Records regulations: The Federal rules restrict any use of the information to criminally investigate or prosecute any alcohol or drug abuse patient.[facility]In the event this information is protected by the Federal Confidentiality of Alcohol and Drug Abuse Patient Records regulations: The Federal rules restrict any use of the information to criminally investigate or prosecute any alcohol or drug abuse patient.[facility]In the event this information is protected by the Federal Confidentiality of Alcohol and Drug Abuse Patient Records regulations: The Federal rules restrict any use of the information to criminally investigate or prosecute any alcohol or drug abuse patient.[facility]In the event this information is protected by the Federal Confidentiality of Alcohol and Drug Abuse Patient Records regulations: The Federal rules restrict any use of the information to criminally investigate or prosecute any alcohol or drug abuse patient.[facility]In the event this information is protected by the Federal Confidentiality of Alcohol and Drug Abuse Patient Records regulations: The Federal rules restrict any use of the information to criminally investigate or prosecute any alcohol or drug abuse patient.[facility]In the event this information is protected by the Federal Confidentiality of Alcohol and Drug Abuse Patient Records regulations: The Federal rules restrict any use of the information to criminally investigate or prosecute any alcohol or drug abuse patient.[facility]In the event this information is protected by the Federal Confidentiality of Alcohol and Drug Abuse Patient Records regulations: The Federal rules restrict any use of the information to criminally investigate or prosecute any alcohol or drug abuse patient.[facility]In the event this information is protected by the Federal Confidentiality of Alcohol and Drug Abuse Patient Records regulations: The Federal rules restrict any use of the information to criminally investigate or prosecute any alcohol or drug abuse patient.[facility]In the event this information is protected by the Federal Confidentiality of Alcohol and Drug Abuse Patient Records regulations: The Federal rules restrict any use of the information to criminally investigate or prosecute any alcohol or drug abuse patient.[facility]In the event this information is protected by the Federal Confidentiality of Alcohol and Drug Abuse Patient Records regulations: The Federal rules restrict any use of the information to criminally investigate or prosecute any alcohol or drug abuse patient.[facility]In the event this information is protected by the Federal Confidentiality of Alcohol and Drug Abuse Patient Records regulations: The Federal rules restrict any use of the information to criminally investigate or prosecute any alcohol or drug abuse patient.[facility]In the event this information is protected by the Federal Confidentiality of Alcohol and Drug Abuse Patient Records regulations: The Federal rules restrict any use of the information to criminally investigate or prosecute any alcohol or drug abuse patient.[facility]In the event this information is protected by the Federal Confidentiality of Alcohol and Drug Abuse Patient Records regulations: The Federal rules restrict any use of the information to criminally investigate or prosecute any alcohol or drug abuse patient.[facility]In the event this information is protected by the Federal Confidentiality of Alcohol and Drug Abuse Patient Records regulations: The Federal rules restrict any use of the information to criminally investigate or prosecute any alcohol or drug abuse patient.[facility]In the event this information is protected by the Federal Confidentiality of Alcohol and Drug Abuse Patient Records regulations: The Federal rules restrict any use of the information to criminally investigate or prosecute any alcohol or drug abuse patient.[facility]In the event this information is protected by the Federal Confidentiality of Alcohol and Drug Abuse Patient Records regulations: The Federal rules restrict any use of the information to criminally investigate or prosecute any alcohol or drug abuse patient.[facility]In the event this information is protected by the Federal Confidentiality of Alcohol and Drug Abuse Patient Records regulations: The Federal rules restrict any use of the information to criminally investigate or prosecute any alcohol or drug abuse patient.[facility]In the event this information is protected by the Federal Confidentiality of Alcohol and Drug Abuse Patient Records regulations: The Federal rules restrict any use of the information to criminally investigate or prosecute any alcohol or drug abuse patient.[facility]In the event this information is protected by the Federal Confidentiality of Alcohol and Drug Abuse Patient Records regulations: The Federal rules restrict any use of the information to criminally investigate or prosecute any alcohol or drug abuse patient.[facility]In the event this information is protected by the Federal Confidentiality of Alcohol and Drug Abuse Patient Records regulations: The Federal rules restrict any use of the information to criminally investigate or prosecute any alcohol or drug abuse patient.[facility]In the event this information is protected by the Federal Confidentiality of Alcohol and Drug Abuse Patient Records regulations: The Federal rules restrict any use of the information to criminally investigate or prosecute any alcohol or drug abuse patient.[facility]In the event this information is protected by the Federal Confidentiality of Alcohol and Drug Abuse Patient Records regulations: The Federal rules restrict any use of the information to criminally investigate or prosecute any alcohol or drug abuse patient.[facility]In the event this information is protected by the Federal Confidentiality of Alcohol and Drug Abuse Patient Records regulations: The Federal rules restrict any use of the information to criminally investigate or prosecute any alcohol or drug abuse patient.[facility]In the event this information is protected by the Federal Confidentiality of Alcohol and Drug Abuse Patient Records regulations: The Federal rules restrict any use of the information to criminally investigate or prosecute any alcohol or drug abuse patient.[facility]In the event this information is protected by the Federal Confidentiality of Alcohol and Drug Abuse Patient Records regulations: The Federal rules restrict any use of the information to criminally investigate or prosecute any alcohol or drug abuse patient.[facility]In the event this information is protected by the Federal Confidentiality of Alcohol and Drug Abuse Patient Records regulations: The Federal rules restrict any use of the information to criminally investigate or prosecute any alcohol or drug abuse patient.[facility]In the event this information is protected by the Federal Confidentiality of Alcohol and Drug Abuse Patient Records regulations: The Federal rules restrict any use of the information to criminally investigate or prosecute any alcohol or drug abuse patient.[facility]In the event this information is protected by the Federal Confidentiality of Alcohol and Drug Abuse Patient Records regulations: The Federal rules restrict any use of the information to criminally investigate or prosecute any alcohol or drug abuse patient.[facility]In the event this information is protected by the Federal Confidentiality of Alcohol and Drug Abuse Patient Records regulations: The Federal rules restrict any use of the information to criminally investigate or prosecute any alcohol or drug abuse patient.[facility]In the event this information is protected by the Federal Confidentiality of Alcohol and Drug Abuse Patient Records regulations: The Federal rules restrict any use of the information to criminally investigate or prosecute any alcohol or drug abuse patient.[facility]In the event this information is protected by the Federal Confidentiality of Alcohol and Drug Abuse Patient Records regulations: The Federal rules restrict any use of the information to criminally investigate or prosecute any alcohol or drug abuse patient.[facility]In the event this information is protected by the Federal Confidentiality of Alcohol and Drug Abuse Patient Records regulations: The Federal rules restrict any use of the information to criminally investigate or prosecute any alcohol or drug abuse patient.[facility]In the event this information is protected by the Federal Confidentiality of Alcohol and Drug Abuse Patient Records regulations: The Federal rules restrict any use of the information to criminally investigate or prosecute any alcohol or drug abuse patient.[facility]In the event this information is protected by the Federal Confidentiality of Alcohol and Drug Abuse Patient Records regulations: The Federal rules restrict any use of the information to criminally investigate or prosecute any alcohol or drug abuse patient.[facility]In the event this information is protected by the Federal Confidentiality of Alcohol and Drug Abuse Patient Records regulations: The Federal rules restrict any use of the information to criminally investigate or prosecute any alcohol or drug abuse patient.[facility]In the event this information is protected by the Federal Confidentiality of Alcohol and Drug Abuse Patient Records regulations: The Federal rules restrict any use of the information to criminally investigate or prosecute any alcohol or drug abuse patient.[facility]In the event this information is protected by the Federal Confidentiality of Alcohol and Drug Abuse Patient Records regulations: The Federal rules restrict any use of the information to criminally investigate or prosecute any alcohol or drug abuse patient.[facility]In the event this information is protected by the Federal Confidentiality of Alcohol and Drug Abuse Patient Records regulations: The Federal rules restrict any use of the information to criminally investigate or prosecute any alcohol or drug abuse patient.[facility]In the event this information is protected by the Federal Confidentiality of Alcohol and Drug Abuse Patient Records regulations: The Federal rules restrict any use of the information to criminally investigate or prosecute any alcohol or drug abuse patient.[facility]In the event this information is protected by the Federal Confidentiality of Alcohol and Drug Abuse Patient Records regulations: The Federal rules restrict any use of the information to criminally investigate or prosecute any alcohol or drug abuse patient.[facility]In the event this information is protected by the Federal Confidentiality of Alcohol and Drug Abuse Patient Records regulations: The Federal rules restrict any use of the information to criminally investigate or prosecute any alcohol or drug abuse patient.[facility]In the event this information is protected by the Federal Confidentiality of Alcohol and Drug Abuse Patient Records regulations: The Federal rules restrict any use of the information to criminally investigate or prosecute any alcohol or drug abuse patient.[facility]In the event this information is protected by the Federal Confidentiality of Alcohol and Drug Abuse Patient Records regulations: The Federal rules restrict any use of the information to criminally investigate or prosecute any alcohol or drug abuse patient.[facility]In the event this information is protected by the Federal Confidentiality of Alcohol and Drug Abuse Patient Records regulations: The Federal rules restrict any use of the information to criminally investigate or prosecute any alcohol or drug abuse patient.[facility]In the event this information is protected by the Federal Confidentiality of Alcohol and Drug Abuse Patient Records regulations: The Federal rules restrict any use of the information to criminally investigate or prosecute any alcohol or drug abuse patient.[facility]In the event this information is protected by the Federal Confidentiality of Alcohol and Drug Abuse Patient Records regulations: The Federal rules restrict any use of the information to criminally investigate or prosecute any alcohol or drug abuse patient.[facility]In the event this information is protected by the Federal Confidentiality of Alcohol and Drug Abuse Patient Records regulations: The Federal rules restrict any use of the information to criminally investigate or prosecute any alcohol or drug abuse patient.[facility]In the event this information is protected by the Federal Confidentiality of Alcohol and Drug Abuse Patient Records regulations: The Federal rules restrict any use of the information to criminally investigate or prosecute any alcohol or drug abuse patient.[facility]In the event this information is protected by the Federal Confidentiality of Alcohol and Drug Abuse Patient Records regulations: The Federal rules restrict any use of the information to criminally investigate or prosecute any alcohol or drug abuse patient.[facility]In the event this information is protected by the Federal Confidentiality of Alcohol and Drug Abuse Patient Records regulations: The Federal rules restrict any use of the information to criminally investigate or prosecute any alcohol or drug abuse patient.[facility]In the event this information is protected by the Federal Confidentiality of Alcohol and Drug Abuse Patient Records regulations: The Federal rules restrict any use of the information to criminally investigate or prosecute any alcohol or drug abuse patient.[facility]In the event this information is protected by the Federal Confidentiality of Alcohol and Drug Abuse Patient Records regulations: The Federal rules restrict any use of the information to criminally investigate or prosecute any alcohol or drug abuse patient.[facility]In the event this information is protected by the Federal Confidentiality of Alcohol and Drug Abuse Patient Records regulations: The Federal rules restrict any use of the information to criminally investigate or prosecute any alcohol or drug abuse patient.[facility]In the event this information is protected by the Federal Confidentiality of Alcohol and Drug Abuse Patient Records regulations: The Federal rules restrict any use of the information to criminally investigate or prosecute any alcohol or drug abuse patient.[facility]In the event this information is protected by the Federal Confidentiality of Alcohol and Drug Abuse Patient Records regulations: The Federal rules restrict any use of the information to criminally investigate or prosecute any alcohol or drug abuse patient.[facility]In the event this information is protected by the Federal Confidentiality of Alcohol and Drug Abuse Patient Records regulations: The Federal rules restrict any use of the information to criminally investigate or prosecute any alcohol or drug abuse patient.[facility]In the event this information is protected by the Federal Confidentiality of Alcohol and Drug Abuse Patient Records regulations: The Federal rules restrict any use of the information to criminally investigate or prosecute any alcohol or drug abuse patient.[facility]In the event this information is protected by the Federal Confidentiality of Alcohol and Drug Abuse Patient Records regulations: The Federal rules restrict any use of the information to criminally investigate or prosecute any alcohol or drug abuse patient.[facility]In the event this information is protected by the Federal Confidentiality of Alcohol and Drug Abuse Patient Records regulations: The Federal rules restrict any use of the information to criminally investigate or prosecute any alcohol or drug abuse patient.[facility]In the event this information is protected by the Federal Confidentiality of Alcohol and Drug Abuse Patient Records regulations: The Federal rules restrict any use of the information to criminally investigate or prosecute any alcohol or drug abuse patient.[facility]In the event this information is protected by the Federal Confidentiality of Alcohol and Drug Abuse Patient Records regulations: The Federal rules restrict any use of the information to criminally investigate or prosecute any alcohol or drug abuse patient.City HospitalIn the event this information is protected by the Federal Confidentiality of Alcohol and Drug Abuse Patient Records regulations: The Federal rules restrict any use of the information to criminally investigate or prosecute any alcohol or drug abuse patient.City HospitalIn the event this information is protected by the Federal Confidentiality of Alcohol and Drug Abuse Patient Records regulations: The Federal rules restrict any use of the information to criminally investigate or prosecute any alcohol or drug abuse patient.[facility] HospitalIn the event this information is protected by the Federal Confidentiality of Alcohol and Drug Abuse Patient Records regulations: The Federal rules restrict any use of the information to criminally investigate or prosecute any alcohol or drug abuse patient.[facility] HospitalIn the event this information is protected by the Federal Confidentiality of Alcohol and Drug Abuse Patient Records regulations: The Federal rules restrict any use of the information to criminally investigate or prosecute any alcohol or drug abuse patient.[facility] HospitalIn the event this information is protected by the Federal Confidentiality of Alcohol and Drug Abuse Patient Records regulations: The Federal rules restrict any use of the information to criminally investigate or prosecute any alcohol or drug abuse patient.[facility] HospitalIn the event this information is protected by the Federal Confidentiality of Alcohol and Drug Abuse Patient Records regulations: The Federal rules restrict any use of the information to criminally investigate or prosecute any alcohol or drug abuse patient.[facility] HospitalIn the event this information is protected by the Federal Confidentiality of Alcohol and Drug Abuse Patient Records regulations: The Federal rules restrict any use of the information to criminally investigate or prosecute any alcohol or drug abuse patient.[facility] HospitalIn the event this information is protected by the Federal Confidentiality of Alcohol and Drug Abuse Patient Records regulations: The Federal rules restrict any use of the information to criminally investigate or prosecute any alcohol or drug abuse patient.[facility] HospitalIn the event this information is protected by the Federal Confidentiality of Alcohol and Drug Abuse Patient Records regulations: The Federal rules restrict any use of the information to criminally investigate or prosecute any alcohol or drug abuse patient.[facility] HospitalIn the event this information is protected by the Federal Confidentiality of Alcohol and Drug Abuse Patient Records regulations: The Federal rules restrict any use of the information to criminally investigate or prosecute any alcohol or drug abuse patient.[facility] HospitalIn the event this information is protected by the Federal Confidentiality of Alcohol and Drug Abuse Patient Records regulations: The Federal rules restrict any use of the information to criminally investigate or prosecute any alcohol or drug abuse patient.[facility] HospitalIn the event this information is protected by the Federal Confidentiality of Alcohol and Drug Abuse Patient Records regulations: The Federal rules restrict any use of the information to criminally investigate or prosecute any alcohol or drug abuse patient.City HospitalIn the event this information is protected by the Federal Confidentiality of Alcohol and Drug Abuse Patient Records regulations: The Federal rules restrict any use of the information to criminally investigate or prosecute any alcohol or drug abuse patient.[facility] HospitalIn the event this information is protected by the Federal Confidentiality of Alcohol and Drug Abuse Patient Records regulations: The Federal rules restrict any use of the information to criminally investigate or prosecute any alcohol or drug abuse patient.City HospitalIn the event this information is protected by the Federal Confidentiality of Alcohol and Drug Abuse Patient Records regulations: The Federal rules restrict any use of the information to criminally investigate or prosecute any alcohol or drug abuse patient.City HospitalIn the event this information is protected by the Federal Confidentiality of Alcohol and Drug Abuse Patient Records regulations: The Federal rules restrict any use of the information to criminally investigate or prosecute any alcohol or drug abuse patient.City HospitalIn the event this information is protected by the Federal Confidentiality of Alcohol and Drug Abuse Patient Records regulations: The Federal rules restrict any use of the information to criminally investigate or prosecute any alcohol or drug abuse patient.City HospitalIn the event this information is protected by the Federal Confidentiality of Alcohol and Drug Abuse Patient Records regulations: The Federal rules restrict any use of the information to criminally investigate or prosecute any alcohol or drug abuse patient.City HospitalIn the event this information is protected by the Federal Confidentiality of Alcohol and Drug Abuse Patient Records regulations: The Federal rules restrict any use of the information to criminally investigate or prosecute any alcohol or drug abuse patient.City HospitalIn the event this information is protected by the Federal Confidentiality of Alcohol and Drug Abuse Patient Records regulations: The Federal rules restrict any use of the information to criminally investigate or prosecute any alcohol or drug abuse patient.City HospitalIn the event this information is protected by the Federal Confidentiality of Alcohol and Drug Abuse Patient Records regulations: The Federal rules restrict any use of the information to criminally investigate or prosecute any alcohol or drug abuse patient.City HospitalIn the event this information is protected by the Federal Confidentiality of Alcohol and Drug Abuse Patient Records regulations: The Federal rules restrict any use of the information to criminally investigate or prosecute any alcohol or drug abuse patient.City HospitalIn the event this information is protected by the Federal Confidentiality of Alcohol and Drug Abuse Patient Records regulations: The Federal rules restrict any use of the information to criminally investigate or prosecute any alcohol or drug abuse patient.City HospitalIn the event this information is protected by the Federal Confidentiality of Alcohol and Drug Abuse Patient Records regulations: The Federal rules restrict any use of the information to criminally investigate or prosecute any alcohol or drug abuse patient.City HospitalIn the event this information is protected by the Federal Confidentiality of Alcohol and Drug Abuse Patient Records regulations: The Federal rules restrict any use of the information to criminally investigate or prosecute any alcohol or drug abuse patient.City HospitalIn the event this information is protected by the Federal Confidentiality of Alcohol and Drug Abuse Patient Records regulations: The Federal rules restrict any use of the information to criminally investigate or prosecute any alcohol or drug abuse patient.City HospitalIn the event this information is protected by the Federal Confidentiality of Alcohol and Drug Abuse Patient Records regulations: The Federal rules restrict any use of the information to criminally investigate or prosecute any alcohol or drug abuse patient.[facility] Reason for Visit (unrecogniz ed section [...] NEW HIGH MDM 60-74 MINUTES Josse Lance, [employer] 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 [address] [place] [address] Referral ID Status Reason Start Date Expiration Date V isits Requested Visits Authorized [id number] Closed PCP Requested Referral 07/03/2021 07/03/2022 1 [...] PELVIC NONOBSTETRIC IMAGE DCMTN LIMITED/F/U Jaci Lucero APRN.ENTRY LEVEL FINANCE [address] [place] [address] [facility] Referral ID Status Reason Start Date Expiration Date V isits Requested Visits Authorized [id number] Closed Auto-Generate d Referral 10/20/2021 11/19/2022 1 [...] Tramadol - itching Reason Onset Date Comments [facility] 08/28/2022 Telephonic outre ach Reason Onset Date Comments [facility] 08/29/2022 Telephonic outre ach Reason Onset Date Comments Opened In Error 08/29/2022 Reason Comments Patient Question Follow Up Returned patients ca ll. She had a question about seeing two Cardiologists. I let her know that she should see the transplant apprentice technician here at [facility] which she is scheduled for in [...] C are Cancellation Reason Onset Date Comments [facility] 10/26/2022 Routine outreach Reason Comments Rash Around left side of body, itching Reason Comments Left Hip Pain Fall Reason Onset Date Comments Refill Request 11/20/2022 Reason Onset Date Comments [facility] 11/22/2022 Routine outreach Reason Comments Follow Up fell 3 week ago and 1 week ago crashed electric wheelchair Reason Onset Date Comments [facility] 12/20/2022 Routine outreach Reason Comments Letter Reason Comments Recheck ER follow up, abdomi nal pain Reason Comments ED Follow-up Reason Comments New Patient Hep C Protocol, Pre Kidney TXP Specialty Diagnoses / Procedures Referred By Contact Referred To Contact Gastroenterology / TRANSPLANT Diagnoses Pre-transplant evaluation for end stage renal disease Awaiting organ transplant Procedures CONSULT TO GASTROENTEROLOGY OFFICE/OUTPATIENT [facility] 60-74 MINUTES Kel Victoria MD [address] [place] [address] [facility] [address] [id number] Referral ID Status Reason Start Date Expiration Date V isits Requested Visits Authorized [id number] Closed PCP Requested Referral Patient Cleared - INN Insurance Found 04/30/2022 04/29/2023 1 1 Specialty Diagnoses / Procedures Referred By Ibrahima dick Referred To Contact Cardiology / TRANSPLANT Diagnoses Pre-transplant evaluation for end stage renal disease Pre-operative cardiovascular examination History of heart artery stent Procedures CONSULT TO CARDIOLOGY OFFICE/OUTPATIENT [facility] [place] 60-74 MINUTES Kel Victoria MD [address] [place] [address] [facility] Main [address] [address] Referral ID Status Reason Start Date Expiration Date V isits Requested Visits Authorized [id number] Closed PCP Requested Referral Patient Cleared - [...] Care Teams (unrecognized sec tion and content) Cable Television Technician Relationship Specialty Start Date End Date Jame Hunt MD [address] [place] [address] PCP - General Internal Medicine 08/15/16 Kim La, [address] [id number] Pharmacist Pharmacy 07/17/18 Vaughn Reeves, NIEVES [facility] [address] [place] [address] Registered Nurse Transplant Center 04/13/19 Ricki Dc MD [address] [address] Casualty Claim Adjuster Nephrology 01/11/20 Vicente Vargas MD [address] [place] [address] Cardiology 04/05/21 Cable Television Technician Relationship Specialty Start Date End Date Jame Hunt MD [address] [place] [address] PCP - General Internal Medicine 08/15/16 Kim La, [facility] [address] [place] [address] [id number] Pharmacist Pharmacy 07/17/18 Vaughn Reeves RN [facility] [address] [place] [address] Registered Nurse Transplant Center 04/13/19 Ricki Dc MD [address] [place] [address] [place] [address] Casualty Claim Adjuster Nephrology 01/11/20 Vicente Vargas MD [address] [place] [address] Cardiology 04/05/21 Cable Television Technician Relationship Specialty Start Date End Date Jame Hunt MD [address] [place] [address] PCP - General Internal Medicine 08/15/16 Kim La, [facility] [address] [place] [address] Pharmacist Pharmacy 07/17/18 Vaughn Reeves RN [facility] [address] [place] [address] Registered Nurse Transplant Center 04/13/19 Ricki Dc MD [address] [place] [address] Casualty Claim Adjuster Nephrology 01/11/20 Vicente Vargas MD [address] [place] [address] Cardiology 04/05/21 Cable Television Technician Relationship Specialty Start Date End Date Jame Hunt MD [address] [place] [address] PCP - General Internal Medicine 08/15/16 Kim La, [facility] [address] [place] [address] Pharmacist Pharmacy 07/17/18 Vaughn Reeves RN [facility] [address] [place] [address] Registered Nurse Transplant Center 04/13/19 Ricki Dc MD [address] [place] [address] Casualty Claim Adjuster Nephrology 01/11/20 Vicente Vargas MD [address] [place] [address] Cardiology 04/05/21 Cable Television Technician Relationship Specialty Start Date End Date Jame Hunt MD [address] [place] [address] PCP - General Internal Medicine 08/15/16 [facility] [address] [place] [address] Pharmacist Pharmacy 07/17/18 Vaughn Reeves, NIEVES [facility] [address] [place] [address] Registered Nurse Transplant Center 04/13/19 Ricki Dc MD [address] [place] [address] [place] [address], [place] [address] Casualty Claim Adjuster Nephrology 01/11/20 Vicente Vargas MD [address] [place] [address] Cardiology 04/05/21 Cable Television Technician Relationship Specialty Start Date End Date Jame Hunt MD [address] [place] [address] PCP - General Internal Medicine 08/15/16 [place] [facility] [address] [place] [address] Pharmacist Pharmacy 07/17/18 Vaughn Reeves RN [facility] [address] [place] [address] Registered Nurse Transplant Center 04/13/19 Ricki Dc MD [address] [place] [address] Casualty Claim Adjuster Nephrology 01/11/20 Vicente Vargas MD [address] [place] [address] Cardiology 04/05/21 Cable Television Technician Relationship Specialty Start Date End Date Jame Hunt MD [address] [place] [address] PCP - General Internal Medicine 08/15/16 Kim La, [facility] [address] [facility] [place] [address] Pharmacist Pharmacy 07/17/18 Vaughn Reeves RN [facility] [address] [place] [address] Registered Nurse Transplant Center 04/13/19 Ricki Dc MD [address] [place] [address] [place] [address], [place] [address] Casualty Claim Adjuster Nephrology 01/11/20 Vicente Vargas MD [address] [place] [address] Cardiology 04/05/21 Cable Television Technician Relationship Specialty Start Date End Date Jame Hunt MD [address] [facility] [place] [address] PCP - General Internal Medicine 08/15/16 Kim La, [facility] [address] [place] [address] Pharmacist Pharmacy 07/17/18 Vaughn Reeves RN [facility] [address] [place] [address] Registered Nurse Transplant Center 04/13/19 Ricki Dc MD [address] [place] [address] [place] [address], [place] [address] Casualty Claim Adjuster Nephrology 01/11/20 Vicente Vargas MD [address] [place] [address] Cardiology 04/05/21 Cable Television Technician Relationship Specialty Start Date End Date Jame Hunt MD [address] [place] [address] PCP - General Internal Medicine 08/15/16 Kim La, [facility] [address] [place] [address] Pharmacist Pharmacy 07/17/18 Vaughn Reeves RN [facility] [address] [place] [address] Registered Nurse Transplant Center 04/13/19 Ricki Dc MD [address] [place] [address] Casualty Claim Adjuster Nephrology 01/11/20 Vicente Vargas MD [address] [place] [address] Cardiology 04/05/21 Cable Television Technician Relationship Specialty Start Date End Date Jame Hunt MD [address] [place] [address] PCP - General Internal Medicine 08/15/16 [facility] [address] [place] [address] Pharmacist Pharmacy 07/17/18 Vaughn Reeves RN [facility] [address] [place] [address] Registered Nurse Transplant Center 04/13/19 Ricki Dc MD [address] [place] [address] Casualty Claim Adjuster Nephrology 01/11/20 Vicente Vargas MD [address] [place] [address] Cardiology 04/05/21 Cable Television Technician Relationship Specialty Start Date End Date Jame Hunt MD [address] [facility] [place] [address] PCP - General Internal Medicine 08/15/16 [facility] [address] [place] [address] Pharmacist Pharmacy 07/17/18 Vaughn Reeves RN [facility] [address] [place] [address] Registered Nurse Transplant Center 04/13/19 Ricki Dc MD [address] [place] [address] Casualty Claim Adjuster Nephrology 01/11/20 Vicente Vargas MD [address] [place] [address] Cardiology 04/05/21 Cable Television Technician Relationship Specialty Start Date End Date Jame Hunt MD [address] [place] [address] PCP - General Internal Medicine 08/15/16 [place] [facility] [facility] [address] [place] [address] Pharmacist Pharmacy 07/17/18 Vaughn Reeves, NIEVES [facility] [address] [place] [address] Registered Nurse Transplant Center 04/13/19 Ricki Dc MD [address] [facility] [address] Casualty Claim Adjuster Nephrology 01/11/20 Vicente Vargas MD [address] [place] [address] Cardiology 04/05/21 Cable Television Technician Relationship Specialty Start Date End Date Jame Hunt MD [address] [facility] [place] [address] PCP - General Internal Medicine 08/15/16 [place] Kim, [facility] [address] [place] [address] Pharmacist Pharmacy 07/17/18 Vaughn Reeves, NIEVES [facility] [address] [place] [address] Registered Nurse Transplant Center 04/13/19 Ricki Dc MD [address] [place] [address] Casualty Claim Adjuster Nephrology 01/11/20 Vicente Vargas MD [address] [place] [address] Cardiology 04/05/21 Cable Television Technician Relationship Specialty Start Date End Date Jame Hunt MD [address] [facility] [place] [address] PCP - General Internal Medicine 08/15/16 Kim La, [facility] [address] [place] [address] Pharmacist Pharmacy 07/17/18 Vaughn Reeves RN [facility] [address] [place] [address] Registered Nurse Transplant Center 04/13/19 Ricki Dc MD [address] [place] [address] Casualty Claim Adjuster Nephrology 01/11/20 Vicente Vargas MD [address] [place] [address] Cardiology 04/05/21 Cable Television Technician Relationship Specialty Start Date End Date Jame Hunt MD [address] [place] [address] PCP - General Internal Medicine 08/15/16 AbhinavKim harris, [facility] [address] [place] [address] Pharmacist Pharmacy 07/17/18 Vaughn Reeves RN [facility] [address] [place] [address] Registered Nurse Transplant Center 04/13/19 Ricki Dc MD [address] [place] [address] [place] [address] Casualty Claim Adjuster Nephrology 01/11/20 Vicente Vargas MD [address] [place] [address] Cardiology 04/05/21 Cable Television Technician Relationship Specialty Start Date End Date Jame Hunt MD [address] [place] [address] PCP - General Internal Medicine 08/15/16 AbhinavKim harris, [facility] [address] [place] [address] Pharmacist Pharmacy 07/17/18 Vaughn Reeves RN [facility] [address] [place] [address] Registered Nurse Transplant Center 04/13/19 Ricki Dc MD [address] [place] [address] Casualty Claim Adjuster Nephrology 01/11/20 Vicente Vargas MD [address] [place] [address] Cardiology 04/05/21 Cable Television Technician Relationship Specialty Start Date End Date Jame Hunt MD [address] [place] [address] PCP - General Internal Medicine 08/15/16 Kim La, [facility] [address] [place] [address] Pharmacist Pharmacy 07/17/18 Vaughn Reeves, RN [facility] [address] [place] [address] Registered Nurse Transplant Center 04/13/19 Ricki Dc MD [address] [place] [address] Casualty Claim Adjuster Nephrology 01/11/20 Vicente Vargas MD [address] [place] [address] Cardiology 04/05/21 Cable Television Technician Relationship Specialty Start Date End Date Jame Hunt MD [address] [facility] [place] [address] PCP - General Internal Medicine 08/15/16 Kim La, [facility] [address] [place] [address] Pharmacist Pharmacy 07/17/18 Vaughn Reeves, RN [facility] [address] [place] [address] Registered Nurse Transplant Center 04/13/19 Ricki Dc MD [address] [place] [address] Casualty Claim Adjuster Nephrology 01/11/20 Vicente Vargas MD [address] [place] [address] Cardiology 04/05/21 Roxie Palmer, NIEVES [address] [place] [address] Hospital Director 09/11/21 Cable Television Technician Relationship Specialty Start Date End Date Jame Hunt MD [address] [place] [address] PCP - General Internal Medicine 08/15/16 [facility] [address] [place] [address] Pharmacist Pharmacy 07/17/18 Vaughn Reeves, NIEVES [facility] [address] [place] [address] Registered Nurse Transplant Center 04/13/19 Ricki Dc MD [address] [place] [address] [place] [address] Casualty Claim Adjuster Nephrology 01/11/20 Vicente Vargas MD [address] [place] [address] Cardiology 04/05/21 Roxie Palmer, NIEVES [address] [place] [address] Hospital Director 09/11/21 Cable Television Technician Relationship Specialty Start Date End Date Jame Hunt MD [address] [place] [address] PCP - General Internal Medicine 08/15/16 [facility] [address] [place] [address] Pharmacist Pharmacy 07/17/18 Vaughn Reeves RN [facility] [address] [place] [address] Registered Nurse Transplant Center 04/13/19 Ricki Dc MD [address] [place] [address] [place] [address] Casualty Claim Adjuster Nephrology 01/11/20 Vicente Vargas MD [address] [place] [address] Cardiology 04/05/21 Roxie Palmer RN [address] [place] [address] Hospital Director 09/11/21 Cable Television Technician Relationship Specialty Start Date End Date Jame Hunt MD [address] [place] [address] PCP - General Internal Medicine 08/15/16 Kim aL, [facility] [address] [place] [address] Pharmacist Pharmacy 07/17/18 Vaughn Reeves RN [facility] [address] [place] [address] Registered Nurse Transplant Center 04/13/19 Ricki Dc MD [address] [address] Casualty Claim Adjuster Nephrology 01/11/20 Vicente Vargas MD [address] [place] [address] Cardiology 04/05/21 Roxie Palmer RN [address] [place] [address] Hospital Director 09/11/21 Cable Television Technician Relationship Specialty Start Date End Date Jame Hunt MD [address] [place] [address] PCP - General Internal Medicine 08/15/16 Kim La, [facility] [address] [place] [address] Pharmacist Pharmacy 07/17/18 Vaughn Reeves RN [facility] [address] [place] [address] Registered Nurse Transplant Center 04/13/19 Ricki Dc MD [address] [address] Casualty Claim Adjuster Nephrology 01/11/20 Vicente Vargas MD [address] [place] [address] Cardiology 04/05/21 Roxie Palmer, NIEVES [address] [place] [address] Hospital Director 09/11/21 Cable Television Technician Relationship Specialty Start Date End Date Jame Hunt MD [address] [place] [address] PCP - General Internal Medicine 08/15/16 Kim La, [facility] [address] [place] [address] Pharmacist Pharmacy 07/17/18 Vaughn Reeves RN [facility] [address] [place] [address] Registered Nurse Transplant Center 04/13/19 Ricki Dc MD [address] [place] [address] [place] [address] Casualty Claim Adjuster Nephrology 01/11/20 Vicente Vargas MD [address] [place] [address] Cardiology 04/05/21 Roxie Palmer RN [address] [place] [address] Hospital Director 09/11/21 Cable Television Technician Relationship Specialty Start Date End Date Jame Hunt MD [address] [place] [address] PCP - General Internal Medicine 08/15/16 Kim La, [facility] [address] [place] [address] Pharmacist Pharmacy 07/17/18 Vaughn Reeves RN [facility] [address] [place] [address] Registered Nurse Transplant Center 04/13/19 Ricki Dc MD [address] [place] [address] [place] [address] Casualty Claim Adjuster Nephrology 01/11/20 Vicente Vargas MD [address] [place] [address] Cardiology 04/05/21 Roxie Plamer, NIEVES [address] [place] [address] Hospital Director 09/11/21 Cable Television Technician Relationship Specialty Start Date End Date Jame Hunt MD [address] [place] [address] PCP - General Internal Medicine 08/15/16 AbhinavKim harris, [facility] [address] [place] [address] Pharmacist Pharmacy 07/17/18 Vaughn Reeves RN [facility] [address] [place] [address] Registered Nurse Transplant Center 04/13/19 Ricki Dc MD [address] [place] [address] [place] [address] Casualty Claim Adjuster Nephrology 01/11/20 Vicente Vargas MD [address] [place] [address] Cardiology 04/05/21 Roxie Palmer RN [address] [place] [address] Hospital Director 09/11/21 Cable Television Technician Relationship Specialty Start Date End Date Jame Hunt MD [address] [place] [address] PCP - General Internal Medicine 08/15/16 Kim La, [facility] [address] [place] [address] Pharmacist Pharmacy 07/17/18 Vaughn Reeves RN [facility] [address] [place] [address] Registered Nurse Transplant Center 04/13/19 Ricki Dc MD [address] [place] [address] [place] [address] Casualty Claim Adjuster Nephrology 01/11/20 Vicente Vargas MD [address] [place] [address] Cardiology 04/05/21 Roxie Palmer, NIEVES [address] [place] [address] Hospital Director 09/11/21 Cable Television Technician Relationship Specialty Start Date End Date Jame Hunt MD [address] [place] [address] PCP - General Internal Medicine 08/15/16 Kim La, [facility] [address] [place] [address] Pharmacist Pharmacy 07/17/18 Vaughn Reeves, NIEVES [facility] [address] [place] [address] Registered Nurse Transplant Center 04/13/19 Ricki Dc MD [address] [place] [address] [place] [address] Casualty Claim Adjuster Nephrology 01/11/20 Vicente Vargas MD [address] [place] [address] Cardiology 04/05/21 Roxie Palmer RN [address] [place] [address] Hospital Director 09/11/21 Cable Television Technician Relationship Specialty Start Date End Date Jame Hunt MD [address] [place] [address] PCP - General Internal Medicine 08/15/16 Kim La, [facility] [address] [place] [address] Pharmacist Pharmacy 07/17/18 Vaughn Reeves RN [facility] [address] [place] [address] Registered Nurse Transplant Center 04/13/19 Ricki Dc MD [address] [place] [address] [place] [address] Casualty Claim Adjuster Nephrology 01/11/20 Vicente Vargas MD [address] [place] [address] Cardiology 04/05/21 Roxie Palmer, NIEVES [address] [place] [address] Hospital Director 09/11/21 Cable Television Technician Relationship Specialty Start Date End Date Jame Hunt MD [address] [place] [address] PCP - General Internal Medicine 08/15/16 Kim La, [facility] [address] [place] [address] Pharmacist Pharmacy 07/17/18 Vaughn Reeves RN [facility] [address] [place] [address] Registered Nurse Transplant Center 04/13/19 Ricki Dc MD [address] [place] [address] [place] [address] Casualty Claim Adjuster Nephrology 01/11/20 Vicente Vargas MD [address] [place] [address] Cardiology 04/05/21 Roxie Palmer RN [address] [place] [address] Hospital Director 09/11/21 Cable Television Technician Relationship Specialty Start Date End Date Jame Hunt MD [address] [place] [address] PCP - General Internal Medicine 08/15/16 Kim La, [facility] [address] [place] [address] Pharmacist Pharmacy 07/17/18 Vaughn Reeves RN [facility] [address] [place] [address] Registered Nurse Transplant Center 04/13/19 Ricki Dc MD [address] [place] [address] [place] [address] Casualty Claim Adjuster Nephrology 01/11/20 Vicente Vargas MD [address] [place] [address] Cardiology 04/05/21 Roxie Palmer RN [address] [place], [place] 0040131 Hospital Director 09/11/21 Cable Television Technician Relationship Specialty Start Date End Date Jame Hunt MD [address] [place] [address] PCP - General Internal Medicine 08/15/16 Abhinav, Kim, [facility] [address] [place] [address] Pharmacist Pharmacy 07/17/18 Vaughn Reeves RN [facility] [address] [place] [address] Registered Nurse Transplant Center 04/13/19 Ricki Dc MD [address] [place] [address] [place] [address] Casualty Claim Adjuster Nephrology 01/11/20 Vicente Vargas MD [address] [place] [address] Cardiology 04/05/21 Roxie Palmer RN [address] [place], [place] [id number] Hospital Director 09/11/21 Cable Television Technician Relationship Specialty Start Date End Date Jame Hunt MD [address] [place] [address] PCP - General Internal Medicine 08/15/16 [place], Kim, [facility] [address] [place] [address] Pharmacist Pharmacy 07/17/18 Vaughn Reeves RN [facility] [address] [place] [address] Registered Nurse Transplant Center 04/13/19 Ricki Dc MD [address] [place] [address] [place] [address] Casualty Claim Adjuster Nephrology 01/11/20 Vicente Vargas MD [address] [place] [address] Cardiology 04/05/21 Roxie Palmer RN [address] [place], [place] 5521831 Hospital Director 09/11/21 Cable Television Technician Relationship Specialty Start Date End Date Jame Hunt MD [address] [place] [address] PCP - General Internal Medicine 08/15/16 Kim La, [facility] [address] [place] [address] Pharmacist Pharmacy 07/17/18 Vaughn Reeves RN [facility] [address] [place] [address] Registered Nurse Transplant Center 04/13/19 Ricki Dc MD [address] [place] [address] [place] [address] Casualty Claim Adjuster Nephrology 01/11/20 Vicente Vargas MD [address] [place] [address] Cardiology 04/05/21 Roxie Palmer RN [address] [place], [place] [id number] Hospital Director 09/11/21 Cable Television Technician Relationship Specialty Start Date End Date Jame Hunt MD [address] [place] [address] PCP - General Internal Medicine 08/15/16 Kim La, [facility] [address] [place] [address] Pharmacist Pharmacy 07/17/18 Vaughn Reeves RN [facility] [address] [place] [address] Registered Nurse Transplant Center 04/13/19 Ricki Dc MD [address] [place] [address] [place] [address] Casualty Claim Adjuster Nephrology 01/11/20 Vicente Vargas MD [address] [place] [address] Cardiology 04/05/21 Roxie Palmer RN [address] [place], [place] [id number] Hospital Director 09/11/21 Cable Television Technician Relationship Specialty Start Date End Date Jame Hunt MD [address] [place] [address] PCP - General Internal Medicine 08/15/16 Kim La, [facility] [address] [place] [address] Pharmacist Pharmacy 07/17/18 Vaughn Reeves, NIEVES [facility] [address] [place] [address] Registered Nurse Transplant Center 04/13/19 Ricki Dc MD [address] [place] [address] [place] [address] Casualty Claim Adjuster Nephrology 01/11/20 Vicente Vargas MD [address] [place] [address] Cardiology 04/05/21 Roxie Palmer RN [address] [place], [place] [id number] Hospital Director 09/11/21 Cable Television Technician Relationship Specialty Start Date End Date Jame Hunt MD [address] [place] [address] PCP - General Internal Medicine 08/15/16 Kim La, [facility] [address] [place] [address] Pharmacist Pharmacy 07/17/18 Vaughn Reeves RN [facility] [address] [place] [address] Registered Nurse Transplant Center 04/13/19 Ricki Dc MD [address] [place] [address] [place] [address] Casualty Claim Adjuster Nephrology 01/11/20 Vicente Vargas MD [address] [place] [address] Cardiology 04/05/21 Roxie Palmer RN [address] [place], [place] [id number] Hospital Director 09/11/21 Cable Television Technician Relationship Specialty Start Date End Date Jame Hunt MD [address] [facility] [place] [address] PCP - General Internal Medicine 08/15/16 Kim La, [facility] [address] [place] [address] Pharmacist Pharmacy 07/17/18 Vaughn Reeves, NIEVES [facility] [address] [place] [address] Registered Nurse Transplant Center 04/13/19 Ricki Dc MD [address] [place] [address] [place] [address] Casualty Claim Adjuster Nephrology 01/11/20 Vicente Vargas MD [address] [place] [address] Cardiology 04/05/21 Roxie Palmer, NIEVES [address] [place], [place] 1077831 Hospital Director 09/11/21 Cable Television Technician Relationship Specialty Start Date End Date Jame Hunt MD [address] [facility] [place] [address] PCP - General Internal Medicine 08/15/16 Kim La, [facility] [address] [place] [address] Pharmacist Pharmacy 07/17/18 Vaughn Reeves, NIEVES [facility] [address] [place] [address] Registered Nurse Transplant Center 04/13/19 Ricki Dc MD [address] [place] [address] [place] [address] Casualty Claim Adjuster Nephrology 01/11/20 Vicente Vargas MD [address] [place] [address] Cardiology 04/05/21 Roxie Palmer RN [address] [place], [place] 0100631 Hospital Director 09/11/21 Cable Television Technician Relationship Specialty Start Date End Date Jame Hunt MD [address] [facility] [place] [address] PCP - General Internal Medicine 08/15/16 Kim La, [facility] [address] [place] [address] Pharmacist Pharmacy 07/17/18 Vaughn Reeves, NIEVES [facility] [address] [place] [address] Registered Nurse Transplant Center 04/13/19 Ricki Dc MD [address] [place] [address] [place] [address] Casualty Claim Adjuster Nephrology 01/11/20 Vicente Vargas MD [address] [place] [address] Cardiology 04/05/21 Roxie Palmer, NIEVES [address] [place], [place] 1629231 Hospital Director 09/11/21 Cable Television Technician Relationship Specialty Start Date End Date Jame Hunt MD [address] [place] [address] PCP - General Internal Medicine 08/15/16 Kim La, [facility] [address] [place] [address] Pharmacist Pharmacy 07/17/18 Vaughn Reeves RN [facility] [address] [place] [address] Registered Nurse Transplant Center 04/13/19 Ricki Dc MD [address] [place] [address] [place] [address] Casualty Claim Adjuster Nephrology 01/11/20 Vicente Vargas MD [address] [place] [address] Cardiology 04/05/21 Roxie Palmer, NIEVES [address] [place], [place] 7758631 Hospital Director 09/11/21 Cable Television Technician Relationship Specialty Start Date End Date Jame Hunt MD [address] [place] [address] PCP - General Internal Medicine 08/15/16 [place], [facility] [address] [place] [address] Pharmacist Pharmacy 07/17/18 Vaughn Reeves, NIEVES [facility] [address] [place] [address] Registered Nurse Transplant Center 04/13/19 Ricki Dc MD [address] [place] [address] [place] [address] Casualty Claim Adjuster Nephrology 01/11/20 Vicente Vargas MD [address] [place] [address] Cardiology 04/05/21 Roxie Palmer, NIEVES [address] [place], [place] 5905531 Hospital Director 09/11/21 Cable Television Technician Relationship Specialty Start Date End Date Jame Hunt MD [address] [place] [address] PCP - General Internal Medicine 08/15/16 Kim La, [facility] [address] [place] [address] Pharmacist Pharmacy 07/17/18 Vaughn Reeves, NIEVES [facility] [address] [place] [address] Registered Nurse Transplant Center 04/13/19 Ricki Dc MD [address] [place] [address] [place] [address] Casualty Claim Adjuster Nephrology 01/11/20 Vicente Vargas MD [address] [place] [address] Cardiology 04/05/21 Roxie Palmer, NIEVES [address] [place], [place] 1665431 Hospital Director 09/11/21 Cable Television Technician Relationship Specialty Start Date End Date Jame Hunt MD [address] [place] [address] PCP - General Internal Medicine 08/15/16 [place], [facility] [address] [place] [address] Pharmacist Pharmacy 07/17/18 Vaughn Reeves, NIEVES [facility] [address] [place] [address] Registered Nurse Transplant Center 04/13/19 Ricki Dc MD [address] [place] [address] [place] [address] Casualty Claim Adjuster Nephrology 01/11/20 Vicente Vargas MD [address] [place] [address] Cardiology 04/05/21 Roxie Palmer, NIEVES [address] [place], [place] 0048831 Hospital Director 09/11/21 Cable Television Technician Relationship Specialty Start Date End Date Jame Hunt MD [address] [place] [address] PCP - General Internal Medicine 08/15/16 AbhinavKim harris, [facility] [address] [place] [address] Pharmacist Pharmacy 07/17/18 Vaughn Reeves, NIEVES [facility] [address] [place] [address] Registered Nurse Transplant Center 04/13/19 Ricki Dc MD [address] [place] [address] [place] [address] Casualty Claim Adjuster Nephrology 01/11/20 Vicente Vargas MD [address] [place] [address] Cardiology 04/05/21 Roxie Palmer, NIEVES [address] [place], [place] 8400931 Hospital Director 09/11/21 Cable Television Technician Relationship Specialty Start Date End Date Jame uHnt MD [address] [place] [address] PCP - General Internal Medicine 08/15/16 [facility] [address] [facility] [place] [address] Pharmacist Pharmacy 07/17/18 Vaughn Reeves, NIEVES [facility] [address] [place] [address] Registered Nurse Transplant Center 04/13/19 Ricki Dc MD [address] [place] [address] [place] [address] Casualty Claim Adjuster Nephrology 01/11/20 Vicente Vargas MD [address] [place] [address] Cardiology 04/05/21 Roxie Palmer, NIEVES [address] [place], [place] 2381031 Hospital Director 09/11/21 Cable Television Technician Relationship Specialty Start Date End Date Jame Hunt MD [address] [place] [address] PCP - General Internal Medicine 08/15/16 [facility] [address] [place] [address] Pharmacist Pharmacy 07/17/18 Vaughn Reeves, NIEVES [facility] [address] [place] [address] Registered Nurse Transplant Center 04/13/19 Ricki Dc MD [address] [place] [address] [place] [address] Casualty Claim Adjuster Nephrology 01/11/20 Vicente Vargas MD [address] [place] [address] Cardiology 04/05/21 Roxie Palmer, NIEVES [address] [place], [place] [id number] Hospital Director 09/11/21 Cable Television Technician Relationship Specialty Start Date End Date Jame Hunt MD [address] [place] [address] PCP - General Internal Medicine 08/15/16 [facility] [address] [place] [address] Pharmacist Pharmacy 07/17/18 Vaughn Reeves, NIEVES [facility] [address] [place] [address] Registered Nurse Transplant Center 04/13/19 Ricki Dc MD [address] [place] [address] [place] [address] Casualty Claim Adjuster Nephrology 01/11/20 Vicente Vargas MD [address] [place] [address] Cardiology 04/05/21 Roxie Palmer, NIEVES [address] [place], [place] 3488431 Hospital Director 09/11/21 Cable Television Technician Relationship Specialty Start Date End Date Jame Hunt MD [address] [place] [address] PCP - General Internal Medicine 08/15/16 [facility] [address] [place] [address] Pharmacist Pharmacy 07/17/18 Vaughn Reeves RN [facility] [address] [place] [address] Registered Nurse Transplant Center 04/13/19 Ricki Dc MD [address] [address] Casualty Claim Adjuster Nephrology 01/11/20 Vicente Vargas MD [address] [place] [address] Cardiology 04/05/21 Roxie Palmer, NIEVES [address] [place], [place] 6415431 Hospital Director 09/11/21 Cable Television Technician Relationship Specialty Start Date End Date Jame Hunt MD [address] [place] [address] PCP - General Internal Medicine 08/15/16 [facility] [address] [place] [address] Pharmacist Pharmacy 07/17/18 Vaughn Reeves RN [facility] [address] [place] [address] Registered Nurse Transplant Center 04/13/19 Ricki Dc MD [address] [place] [address] [place] [address] Casualty Claim Adjuster Nephrology 01/11/20 Vicente Vargas MD [address] [place] [address] Cardiology 04/05/21 Roxie Palmer, NIEVES [address] [place], [place] 1134531 Hospital Director 09/11/21 Cable Television Technician Relationship Specialty Start Date End Date Jame Hunt MD [address] [place] [address] PCP - General Internal Medicine 08/15/[address] [address] Pharmacist Pharmacy 07/17/18 Vaughn Reeves RN [facility] [address] [place] [address] Registered Nurse Transplant Center 04/13/19 Ricki Dc MD [address] [address] Casualty Claim Adjuster Nephrology 01/11/20 Vicente Vargas MD [address] [place] [address] Cardiology 04/05/21 Roxie Palmer RN [address] [place], [place] 6462431 Hospital Director 09/11/21 Cable Television Technician Relationship Specialty Start Date End Date Jame Hunt MD [address] [place] [address] PCP - General Internal Medicine 08/15/[address] [address] Pharmacist Pharmacy 07/17/18 Vaughn Reeves RN [facility] [address] [place] [address] Registered Nurse Transplant Center 04/13/19 Ricki Dc MD [address] [address] Casualty Claim Adjuster Nephrology 01/11/20 Vicente Vargas MD [address] [place] [address] Cardiology 04/05/21 Roxie Palmer, NIEVES [address] [place], [place] 5138031 Hospital Director 09/11/21 Cable Television Technician Relationship Specialty Start Date End Date Jame Hunt MD [address] [place] [address] PCP - General Internal Medicine 08/15/[address] [address] Pharmacist Pharmacy 07/17/18 Vaughn Reeves RN [facility] [address] [place] [address] Registered Nurse Transplant Center 04/13/19 Ricki Dc MD [address] [address] Casualty Claim Adjuster Nephrology 01/11/20 Vicente Vargas MD [address] [place] [address] Cardiology 04/05/21 Roxie Palmer RN [address] [place], [place] 0928931 Hospital Director 09/11/21 Cable Television Technician Relationship Specialty Start Date End Date Jame Hunt MD [address] [place] [address] PCP - General Internal Medicine 08/15/[address] Kim [address] [address] Pharmacist Pharmacy 07/17/18 Vaughn Reeves RN [facility] [address] [place] [address] Registered Nurse Transplant Center 04/13/19 Ricki Dc MD [address] [address] Casualty Claim Adjuster Nephrology 01/11/20 Vicente Vargas MD [address] [place] [address] Cardiology 04/05/21 Roxie Palmer, NIEVES [address] [place], [place] 3157031 Hospital Director 09/11/21 Cable Television Technician Relationship Specialty Start Date End Date Jame Hunt MD [address] [place] [address] PCP - General Internal Medicine 08/15/16 Kim La[address] [address] Pharmacist Pharmacy 07/17/18 Vaughn Reeves RN [facility] [address] [place] [address] Registered Nurse Transplant Center 04/13/19 Ricki Dc MD [address] [address] Casualty Claim Adjuster Nephrology 01/11/20 Vicente Vargas MD [address] [place] [address] Cardiology 04/05/21 Roxie Palmer RN [address] [place], [place] 1206531 Hospital Director 09/11/21 Cable Television Technician Relationship Specialty Start Date End Date Jame Hunt MD [address] [place] [address] PCP - General Internal Medicine 08/15/16 [facility] [address] [place] [address] Pharmacist Pharmacy 07/17/18 Vaughn Reeves RN [facility] [address] [place] [address] Registered Nurse Transplant Center 04/13/19 Ricki Dc MD [address] [place] [address] [place] [address] Casualty Claim Adjuster Nephrology 01/11/20 Vicente Vargas MD [address] [place] [address] Cardiology 04/05/21 Dasha Colvin, cone examinerHospital Director 08/07/22 Cable Television Technician Relationship Specialty Start Date End Date Jame Hunt MD [address] [place] [address] PCP - General Internal Medicine 08/15/[address] [address] Pharmacist Pharmacy 07/17/18 Vaughn Reeves RN [facility] [address] [place] [address] Registered Nurse Transplant Center 04/13/19 Ricki Dc MD [address] [address] Casualty Claim Adjuster Nephrology 01/11/20 Vicente Vargas MD [address] [place] [address] Cardiology 04/05/21 Dasha Colvin, cone examinerHospital Director 08/07/22 Cable Television Technician Relationship Specialty Start Date End Date Jame Hunt MD [address] [place] [address] PCP - General Internal Medicine 08/15/[address] [address] Pharmacist Pharmacy 07/17/18 Vaughn Reeves RN [facility] [address] [place] [address] Registered Nurse Transplant Center 04/13/19 Ricki Dc MD [address] [place] [address] [place] [address] Casualty Claim Adjuster Nephrology 01/11/20 Vicente Vargas MD [address] [place] [address] Cardiology 04/05/21 Dasha Colvin, cone examinerHospital Director 08/07/22 Cable Television Technician Relationship Specialty Start Date End Date Jame Hunt MD [address] [place] [address] PCP - General Internal Medicine 08/15/[address] Kim La[address] [address] Pharmacist Pharmacy 07/17/18 Vaughn Reeves RN [facility] [address] [place] [address] Registered Nurse Transplant Center 04/13/19 Ricik Dc MD [address] [address] Casualty Claim Adjuster Nephrology 01/11/20 Vicente Vargas MD [address] [place] [address] Cardiology 04/05/21 Dasha Colvin, cone examinerHospital Director 08/07/22 Cable Television Technician Relationship Specialty Start Date End Date Jame Hunt MD [address] [place] [address] PCP - General Internal Medicine 08/15/[address] [address] Pharmacist Pharmacy 07/17/18 Vaughn Reeves RN [facility] [address] [place] [address] Registered Nurse Transplant Center 04/13/19 Ricki Dc MD [address] [facility] [address] [place] [address] Casualty Claim Adjuster Nephrology 01/11/20 Vicente Vargas MD [address] [place] [address] Cardiology 04/05/21 Sienna Miller, cone examinerHospital Director 09/18/22 Cable Television Technician Relationship Specialty Start Date End Date Jame Hunt MD [address] [place] [address] PCP - General Internal Medicine 08/15/16 [facility] [address] [place] [address] Pharmacist Pharmacy 07/17/18 Vaughn Reeves RN [facility] [address] [place] [address] Registered Nurse Transplant Center 04/13/19 Ricki Dc MD [address] [address] Casualty Claim Adjuster Nephrology 01/11/20 Vicente Vargas MD [address] [place] [address] Cardiology 04/05/21 Sienna Miller, cone examinerHospital Director 09/18/22 Cable Television Technician Relationship Specialty Start Date End Date Jame Hunt MD [address] [place] [address] PCP - General Internal Medicine 08/15/16 [facility] [address] [place] [address] Pharmacist Pharmacy 07/17/18 Vaughn Reeves RN [facility] [address] [place] [address] Registered Nurse Transplant Center 04/13/19 Ricki Dc MD [address] [address] Casualty Claim Adjuster Nephrology 01/11/20 Vicente Vargas MD [address] [place] [address] Cardiology 04/05/21 Sienna Miller, cone examinerHospital Director 09/18/22 Cable Television Technician Relationship Specialty Start Date End Date Jame Hunt MD [address] [place] [address] PCP - General Internal Medicine 08/15/16 Kim La, [facility] [address] [place] [address] Pharmacist Pharmacy 07/17/18 Vaughn Reeves RN [facility] [address] [place] [address] Registered Nurse Transplant Center 04/13/19 Ricki Dc MD [address] [address] Casualty Claim Adjuster Nephrology 01/11/20 Vicente Vargas MD [address] [place] [address] Cardiology 04/05/21 Sienna Miller cone examinerHospital Director 09/18/22 Cable Television Technician Relationship Specialty Start Date End Date Jame Hunt MD [address] [place] [address] PCP - General Internal Medicine 08/15/16 [place] [facility] [address] [place] [address] Pharmacist Pharmacy 07/17/18 Vaughn Reeves RN [facility] [address] [place] [address] Registered Nurse Transplant Center 04/13/19 Ricki Dc MD [address] [place] [address] [place] [address] Casualty Claim Adjuster Nephrology 01/11/20 Vicente Vargas MD [address] [place] [address] Cardiology 04/05/21 Sienna Miller RN Hospital Director 09/18/22 Cable Television Technician Relationship Specialty Start Date End Date Jame Hunt MD [address] [place] [address] PCP - General Internal Medicine 08/15/16 Kim La, [facility] [address] [place] [address] Pharmacist Pharmacy 07/17/18 Vaughn Reeves RN [facility] [address] [place] [address] Registered Nurse Transplant Center 04/13/19 Ricki Dc MD [address] [place] [address] [place] [address] Casualty Claim Adjuster Nephrology 01/11/20 Vicente Vargas MD [address] [place] [address] Cardiology 04/05/21 Sienna Miller RN Hospital Director 09/18/22 Cable Television Technician Relationship Specialty Start Date End Date Jame Hunt MD [address] [place] [address] PCP - General Internal Medicine 08/15/16 [place], [facility] [address] [place] [address] Pharmacist Pharmacy 07/17/18 Vaughn Reeves RN [facility] [address] [place] [address] Registered Nurse Transplant Center 04/13/19 Ricki Dc MD [address] [place] [address] [place] [address] Casualty Claim Adjuster Nephrology 01/11/20 Vicente Vargas MD [address] [place] [address] Cardiology 04/05/21 Sienna Miller RN Hospital Director 09/18/22 Cable Television Technician Relationship Specialty Start Date End Date Jame Hunt MD [address] [place] [address] PCP - General Internal Medicine 08/15/16 Kim aL, [facility] [address] [place] [address] Pharmacist Pharmacy 07/17/18 Vaughn Reeves RN [facility] [address] [place] [address] Registered Nurse Transplant Center 04/13/19 Ricki Dc MD [address] [place] [address] [place] [address] Casualty Claim Adjuster Nephrology 01/11/20 Vicente Vargas MD [address] [place] [address] (Fax) Cardiology 04/05/21 Sienna Miller, cone examinerHospital Director 09/18/22 Cable Television Technician Relationship Specialty Start Date End Date Jame Hunt MD [address] [place] [address] PCP - General Internal Medicine 08/15/16 Kim La, [facility] [address] [place] [address] Pharmacist Pharmacy 07/17/18 Vaughn Reeves, NIEVES [facility] [address] [place] [address] Registered Nurse Transplant Center 04/13/19 Ricki Dc MD [address] [address] Casualty Claim Adjuster Nephrology 01/11/20 Vicente Vargas MD [address] [place] [address] Cardiology 04/05/21 Sienna Miller RN Hospital Director 09/18/22 Cable Television Technician Relationship Specialty Start Date End Date Jame Hunt MD [address] [place] [address] PCP - General Internal Medicine 08/15/16 [place], [facility] [address] [place] [address] Pharmacist Pharmacy 07/17/18 Vaughn Reeves RN [facility] [address] [place] [address] Registered Nurse Transplant Center 04/13/19 Ricki Dc MD [address] [address] Casualty Claim Adjuster Nephrology 01/11/20 Vicente Vargas MD [address] [place] [address] Cardiology 04/05/21 Sienna Miller cone examinerHospital Director 09/18/22 Cable Television Technician Relationship Specialty Start Date End Date Jame Hunt MD [address] [place] [address] PCP - General Internal Medicine 08/15/[address] [address] Pharmacist Pharmacy 07/17/18 Vaughn Reeves RN [facility] [address] [place] [address] Registered Nurse Transplant Center 04/13/19 Ricki Dc MD [address] [address] Casualty Claim Adjuster Nephrology 01/11/20 Vicente Vargas MD [address] [place] [address] Cardiology 04/05/21 Sienna Miller cone examinerHospital Director 09/18/22 Cable Television Technician Relationship Specialty Start Date End Date Jame Hunt MD [address] [place] [address] PCP - General Internal Medicine 08/15/16 [facility] [address] [place] [address] Pharmacist Pharmacy 07/17/18 Vaughn Reeves RN [facility] [address] [place] [address] Registered Nurse Transplant Center 04/13/19 Ricki Dc MD [address] [address] Casualty Claim Adjuster Nephrology 01/11/20 Vicente Vargas MD [address] [place] [address] Cardiology 04/05/21 Sienna Miller, cone examinerHospital Director 09/18/22 Cable Television Technician Relationship Specialty Start Date End Date Jame Hunt MD [address] [place] [address] PCP - General Internal Medicine 08/15/16 Kim La [address] [address] Pharmacist Pharmacy 07/17/18 Vaughn Reeves RN [facility] [address] [place] [address] Registered Nurse Transplant Center 04/13/19 Ricki Dc MD [address] [address] Casualty Claim Adjuster Nephrology 01/11/20 Vicente Vargas MD [address] [place] [address] Cardiology 04/05/21 Sienna Miller, cone examinerHospital Director 09/18/22 Cable Television Technician Relationship Specialty Start Date End Date Jame Hunt MD [address] [place] [address] PCP - General Internal Medicine 08/15/16 Kim La [facility] [address] [place] [address] Pharmacist Pharmacy 07/17/18 Vaughn Reeves RN [facility] [address] [place] [address] Registered Nurse Transplant Center 04/13/19 Ricki Dc MD [address] [address] Casualty Claim Adjuster Nephrology 01/11/20 Vicente Vargas MD [address] [place] [address] Cardiology 04/05/21 Sienna Miller, cone examinerHospital Director 09/18/22 Cable Television Technician Relationship Specialty Start Date End Date Jame Hunt MD [address] [place] [address] PCP - General Internal Medicine 08/15/16 Kim La, [facility] [address] [place] [address] Pharmacist Pharmacy 07/17/18 Vaughn Reeves RN [facility] [address] [place] [address] Registered Nurse Transplant Center 04/13/19 Ricki Dc MD [address] [address] Casualty Claim Adjuster Nephrology 01/11/20 Vicente Vargas MD [address] [place] [address] Cardiology 04/05/21 Sienna Miller, cone examinerHospital Director 09/18/22 Cable Television Technician Relationship Specialty Start Date End Date Jame Hunt MD [address] [place] [address] PCP - General Internal Medicine 08/15/16 [place], [facility] [address] [place] [address] Pharmacist Pharmacy 07/17/18 Vaughn Reeves, NIEVES [facility] [address] [place] [address] Registered Nurse Transplant Center 04/13/19 Ricki Dc MD [address] [place] [address] [place] [address] Casualty Claim Adjuster Nephrology 01/11/20 Vicente Vargas MD [address] [place] [address] Cardiology 04/05/21 Roxie Palmer RN [address] [place] [address] Hospital Director 09/11/2108/06 Cable Television Technician Relationship Specialty Start Date End Date Jame Hunt MD [address] [place] [address] PCP - General Internal Medicine 08/15/16 [place] [facility] [address] [place] [address] Pharmacist Pharmacy 07/17/18 Vaughn Reeves RN [facility] [address] [place] [address] Registered Nurse Transplant Center 04/13/19 Ricki Dc MD [address] [place] [address] [place] [address] Casualty Claim Adjuster Nephrology 01/11/20 Vicente Vargas MD [address] [place] [address] Cardiology 04/05/21 Sienna Miller, cone examinerHospital Director 09/18/22 Cable Television Technician Relationship Specialty Start Date End Date Jame Hunt MD [address] [place] [address] PCP - General Internal Medicine 08/15/16 [facility] [address] [place] [address] Pharmacist Pharmacy 07/17/18 Vaughn Reeves, NIEVES [facility] [address] [place] [address] Registered Nurse Transplant Center 04/13/19 Ricki Dc MD [address] [address] Casualty Claim Adjuster Nephrology 01/11/20 Vicente Vargas MD [address] [place] [address] Cardiology 04/05/21 Sienna Milelr cone examinerHospital Director 09/18/22 Lizeth Bey MD [address] [place] [address] Primary Staff Physician Cardiology 01/10/23 Cable Television Technician Relationship Specialty Start Date End Date Jame Hunt MD [address] [place], [place] [id number] PCP - General Internal Medicine 08/15/16 Kim La, [facility] [address] [place] [address] Pharmacist Pharmacy 07/17/18 Vaughn Reeves RN [facility] [address] [place] [address] Registered Nurse Transplant Center 04/13/19 Ricki Dc MD [address] [address] Casualty Claim Adjuster Nephrology 01/11/20 Vicente Vargas MD [address] [place] [address] (Fax) Cardiology 04/05/21 Sienna Miller, cone examinerHospital Director 09/18/22 Lizeth Bey MD [address] [place] [address] Primary Staff Physician Cardiology 01/10/23 Cable Television Technician Relationship Specialty Start Date End Date Jame Hunt MD [address] [place] [address] PCP - General Internal Medicine 08/15/16 Kim La, [facility] [address] [place] [address] Pharmacist Pharmacy 07/17/18 Vaughn Reeves, NIEVES [facility] [address] [place] [address] Registered Nurse Transplant Center 04/13/19 Ricki Dc MD [address] [address] Casualty Claim Adjuster Nephrology 01/11/20 Vicente Vargas MD [address] [place] [address] (Fax) Cardiology 04/05/21 Sienna Miller cone examinerHospital Director 09/18/22 Lizeth Bey MD [address] [place] [address] Primary Staff Physician Cardiology 01/10/23 Cable Television Technician Relationship Specialty Start Date End Date Jame Hunt MD [address] [facility] [place] [address] PCP - General Internal Medicine 08/15/16 Kim La, [facility] [address] [place] [address] Pharmacist Pharmacy 07/17/18 Vaughn Reeves, NIEVES [facility] [address] [place] [address] Registered Nurse Transplant Center 04/13/19 Ricki Dc MD [address] [address] Casualty Claim Adjuster Nephrology 01/11/20 Vicente Vargas MD [address] [place] [address] Cardiology 04/05/21 Sienna Miller RN Hospital Director 09/18/22 Lizeth Bey MD [address] [place] [address] Primary Staff Physician Cardiology 01/10/23 Cable Television Technician Relationship Specialty Start Date End Date Jame Hunt MD [address] [place] [address] PCP - General Internal Medicine 08/15/16 Kim La, [facility] [address] [place] [address] Pharmacist Pharmacy 07/17/18 Vaughn Reeves RN [facility] [address] [place] [address] Registered Nurse Transplant Center 04/13/19 Ricki Dc MD [address] [facility] [address] [place] [address] Casualty Claim Adjuster Nephrology 01/11/20 Vicente Vargas MD [address] [place] [address] (Fax) Cardiology 04/05/21 Sienna Miller, cone examinerHospital Director 09/18/22 Lizeth Bey MD [address] [place], [place] [id number] Primary Staff Physician Cardiology 01/10/23 Cable Television Technician Relationship Specialty Start Date End Date Jame Hunt MD [address] [place] [address] PCP - General Internal Medicine 08/15/16 Kim La, [facility] [address] [place] [address] Pharmacist Pharmacy 07/17/18 Vaughn Reeves, RN [facility] [address] [place] [address] Registered Nurse Transplant Center 04/13/19 Ricki Dc MD [address] [address] Casualty Claim Adjuster Nephrology 01/11/20 Vicente Vargas MD [address] [place] [address] (Fax) Cardiology 04/05/21 Sienna Miller RN Hospital Director 09/18/22 Lizeth Bey MD [address] [place] [address] Primary Staff Physician Cardiology 01/10/23 Cable Television Technician Relationship Specialty Start Date End Date Jame Hunt MD [facility] [place], [place] [id number] PCP - General Internal Medicine 08/15/16 Kim La, [facility] [address] [place] [address] Pharmacist Pharmacy 07/17/18 Vaughn Reeves, NIEVES [facility] [address] [place] [address] Registered Nurse Transplant Center 04/13/19 Ricki Dc MD [address] [address] Casualty Claim Adjuster Nephrology 01/11/20 Vicente Vargas MD [address] [place] [address] Cardiology 04/05/21 Sienna Miller, cone examinerHospital Director 09/18/22 Lizeth Bey MD [address] [place], [place] [id number] Primary Staff Physician Cardiology 01/10/23 FOR RECORDS [...] BE BASED ON THE PRIMARY CLINICAL RECORDS. [employer] [facility]. provides no warranty or guarantee of the accuracy or completeness of information in this document.
[2023-04-16] VITALS (61 sets, daily range): BP systolic 82–269; BP diastolic 30–91; PULSE 61–103; RESP 14–21; TEMP 36.2–38.4; O2SAT 94–100; BMI 40.1; BMI 40.3
[2023-04-16] MEDS: 0.9% Saline Lock 10 ML Syringe IV ×3 (00:20→18:47)
[2023-04-16] MEDS: Vancomycin HCl 2,000 MG in 0.9% Normal Saline (500mL Bag) 500 ML 250 MG IV (00:21)
[2023-04-16] MEDS: Midodrine HCl 5 MG Tablet 10 MG PO ×3 (00:42→17:19)
[2023-04-16] MEDS: 0.9% Normal Saline (1000mL) 1,000 ML 999 ML IV (00:42)
[2023-04-16 01:30] LABS: Reflex Lactate? Y
[2023-04-16 02:39] LABS: Lactic Acid 2.8 mmol/L (0.4-1.9)
--- NOTE | 2023-04-16 03:35 | PCM.RX.CS ---
Consult Antibiotic Management Pharmacy has been consulted to manage selected antibiotic: Vancomycin Type of Intervention Type of Consult: New start Labs Labs: Sodium 133 mmol/L (136-145) L 04/15/23 21:20 Potassium 4.4 mmol/L (3.5-5.1) 04/15/23 21:20 Chloride 96 mmol/L (98-107) L 04/15/23 21:20 Carbon Dioxide 28.0 mmol/L (21.0-32.0) 04/15/23 21:20 Anion Gap 9 (5-15) 04/15/23 21:20 BUN 30 mg/dL (7-18) H 04/15/23 21:20 Creatinine 5.80 mg/dL (0.55-1.02) H 04/15/23 21:20 Est GFR (MDRD) Af Amer 9 mL/min (>60) L 04/15/23 21:20 Est GFR (MDRD) Non-Af 8 mL/min (>60) L 04/15/23 21:20 BUN/Creatinine Ratio 5.2 RATIO (10-20) L 04/15/23 21:20 Glucose 162 mg/dL (74-106) H 04/15/23 21:20 Microbiology Microbiology: Microbiology 04/15/23 21:26 Mucosa - Nose SARS-CoV-2, Influenza & RSV (PCR) - Final Influenzae A Estimated Creatinine Clearance Estimated Creatinine Clearance: DIALYSIS Goal Trough Goal Trough: 15-20 mcg/mL Pharmacy Plan for Drug Dosing Pharmacy Plan for Drug Dosing: Pharmacy Service will continue to monitor and adjust dosing as required. Follow-Up Labs Follow-Up Labs: Trough: Vancomycin Date/Time Labs Ordered Labs to be done on [date and time ordered]: 04/19 @ 0600 PRE DIALYSIS
[2023-04-16] MEDS: Acetaminophen 650 MG Suppository RC (03:49)
[2023-04-16] MEDS: Levothyroxine 88 MCG Tablet PO (05:24)
[2023-04-16] MEDS: Pramipexole Di-HCl 0.25 MG Tablet PO ×3 (05:24→20:20)
--- NOTE | 2023-04-16 05:55 | RAD_ITS ---
EXAM: XR CHEST, 1 VIEW CLINICAL INDICATION: LLL PNA and Influenza A. TECHNIQUE: Frontal view of the chest. COMPARISON: April 15, 2023 FINDINGS: LUNGS AND PLEURAL SPACES: Unchanged bilateral lower lobe pneumonia. Unchanged appearance of the bilateral perihilar/infrahilar age-indeterminate bronchitis. No pleural effusion or pneumothorax. HEART: Unremarkable. Cardiac silhouette not enlarged. MEDIASTINUM: See below. BONES/JOINTS: Degenerative changes of the spine. No acute fracture. SOFT TISSUES: Unremarkable. LYMPH NODES: Fullness of the hilar regions may represent reactive adenopathy. Attention on follow-up. No mediastinal or cardiac enlargement. UPPER ABDOMEN: Few surgical clips again project over the left upper quadrant. RAD/Chest 1 View (Portable) IMPRESSION: 1. No significant change in left greater than right suspected lower lobe pneumonia. 2. No significant change in findings suspicious for bronchitis, age-indeterminate. 3. Remaining examination stable. Electronically Signed: Chapincito Livingston MD at 4:26 EST ,
[2023-04-16] MEDS: Sucralfate 1 GM Tablet PO ×2 (06:15→17:19)
[2023-04-16 06:18] LABS: Absolute Lymphocyte Count 0.84 X10^3/uL (0.83-4.51); Basophil# 0.01 X10^3/uL; Basophil% 0.1 % (0-1); Eosinophil# 0.01 X10^3/uL; Eosinophils% 0.1 % (0-5); Lymphocyte # 0.84 X10^3/ul (0.83-4.51); Lymphocyte % 11.6 % (19-41); Mean Corp Hgb Conc 30.8 g/dL (32-36); Mean Corpuscular Hgb 29.1 pg (27.0-32.0); Mean Corpuscular Volume 94.5 fL (81-99); Mean Platelet Vol. 10.5 fl (6.2-12.0); Monocyte# 0.25 X10^3/uL; Monocyte% 3.5 % (0-10); NRBC Flagged by Analyzer 0 % (0-5); Neutrophil # 6.02 X10^3/uL (2.7-7.7); Neutrophil % 83.2 % (47-70); POSITIVE COUNT YES; POSITIVE MORPHOLOGY YES; Platelet Count 62 K/mm3 (150-450); RBC Distribution Width CV 19.7 % (11.6-14.6); RBC Distribution Width SD 66.5 fl (35.1-43.9); Red Blood Count 2.75 M/mm3 (4.2-5.4); White Blood Count 7.2 K/mm3 (4.4-11.0)
[2023-04-16 06:19] LABS: Differential Indicated SCAN CRITERIA MET
[2023-04-16 06:36] LABS: Anion Gap 8 (5-15); BUN 34 mg/dL (7-18); BUN/Creat Ratio 5.9 RATIO (10-20); Calcium,Total 8.2 mg/dL (8.5-10.1); Chloride 99 mmol/L (98-107); EST Glomerular Filtration Rate 8 mL/min (>60); Est Glom Filt Rate - Afr Amer 9 mL/min (>60); Glucose 96 mg/dL (74-106); Potassium 5.2 mmol/L (3.5-5.1); Sodium Level 134 mmol/L (136-145)
[2023-04-16 06:45] LABS: Anisocytosis 2+; Platelet Estimate MOD DEC (ADEQ)
--- NOTE | 2023-04-16 07:22 | EX.PCM.CONCC ---
Assessment & Plan Assessment/Plan (1) Influenza A: (2) Sepsis with encephalopathy without septic shock: QUALIFIERS: Sepsis type: sepsis due to unspecified organism Qualified Code(s): A41.9 - Sepsis, unspecified organism; R65.20 - Severe sepsis without septic shock; G93.41 - Metabolic encephalopathy (3) End stage renal disease on dialysis: PLAN: Plan RECOMMENDATIONS: 1. Obtain nasal MRSA swab. Possibly discontinue vancomycin if negative 2. Consult nephrology for dialysis needs 3. Okay to discontinue lactate evaluations 4. No transfusions at this time, but monitor daily 5. Continue midodrine IMPRESSIONS: 1. Sepsis secondary to influenza A with possible secondary bacterial infection Patient has tested positive for influenza A. Endorgan damage demonstrated by altered mental status and lethargy on presentation. Patient is immunosuppressed at baseline, so secondary bacterial infection should be considered. Patient does have bilateral infiltrates on chest x-ray. Patient is on Tamiflu. Will continue with broad-spectrum antibiotics. Patient potentially could have MRSA. Will check a nasal swab. If this is negative, vancomycin can likely be discontinued. 2. Pancytopenia while on immunosuppression status post liver transplant with [facility] Patient's blood counts appear to be at the baseline. There is no indication for transfusion at this time. Patient is on tacrolimus at baseline. This will be continued. Cannot exclude an element of sequestration secondary to problem #1. Patient is not neutropenic. 3. End-stage renal disease on hemodialysis Unclear if patient's hypotension is secondary to sepsis versus dialysis yesterday. Dialysis may be difficult to complete at this time given baseline blood pressures. Will consult nephrology for recommendations. Patient with no indication for urgent hemodialysis. 4. Osteoarthritis/hypertension/hyperlipidemia/hypothyroidism/morbid obesity/diabetes/history of DVT/CAD/psoriasis/RLS Complicates care, management, recovery and prognosis. Antihypertensives have been held secondary to problem #1. Okay to resume baseline medications. Hemoglobin A1c is currently pending. Sliding scale insulin likely sufficient given variable p.o. intake. Unable to verify CODE STATUS given patient's mental status. HPI Consult Data Date of Consult: 04/16/23 HPI Narrative HPI Narrative: CHRISTINA KUO is a 67 F, with past medical history listed below, who presents to [facility] on 04/15/2023 secondary to lethargy and worsening shortness of breath. Patient stated that she had dialysis on Saturday and tolerated this relatively well. She then reports she started to develop abdominal pain, and mild nonproductive cough and fatigue. Patient does have a history of a prior liver transplant. Patient reportedly has a history of COPD, but has never been a smoker. In the ER, patient was afebrile, but tachycardic at 112 bpm. Patient was initially noted to be 90% on room air, but then was placed on 4 L nasal cannula to maintain saturations. Patient also noted to have a worsening in blood pressure to 91/39 and did receive 2 L of IV fluids. Laboratory workup showed a white blood cell count of 5.4 with a hemoglobin of 9.4 and platelets of 76. Chemistries show an elevated bicarbonate of 28, BUN of 30 and creatinine of 5.8. Glucose was 162. Lactate was elevated at 3.4 and BNP was 190. Liver enzymes were relatively unremarkable. Chest x-ray showed vascular congestion versus bilateral infiltrates. Patient ultimately had a screen positive for influenza A. Given hypotension, patient was given midodrine and transferred to the intensive care unit for closer monitoring. Overnight, patient has done relatively well. Patient was noted to have some marginal blood pressures, leading to the order of Levophed. However, this did not have to be initiated as patient's blood pressure did improve. Nursing is reporting patient's mentation is somewhat improved compared to presentation. Patient still has issues with memory and does not remember being here at [facility] last month. Patient is not able to tell me if she has had a flu vaccination. Patient reports that she has been told in the past that she has COPD, but is never been a smoker. Patient believes this had to do something with my liver or heart. Patient states she does not use any inhalers routinely at baseline. Patient does have an albuterol, but has not used it. Patient does report that she has had an issue with hypotension associated with dialysis and does take midodrine intermittently. [facility] Medical History Anemia Anemia in chronic kidney disease Anxiety Back pain Blister Cancer Cardiology follow-up encounter Celiac disease Chronic kidney disease, stage 3 Chronic kidney failure Chronic renal failure, stage 5 Cirrhosis COPD (chronic obstructive pulmonary disease) Depression Diabetes Dialysis patient DVT (deep venous thrombosis) DVT (deep venous thrombosis) ESRD (end stage renal disease) Gastric reflux GERD (gastroesophageal reflux disease) History of echocardiogram (~01/22/20) History of edema History of irregular heartbeat History of renal dialysis History of renal disease History of stress test (~12/07/19) History of uterine cancer Hx of Krueger's palsy Hypertension Hypertension Hypothyroidism Infection involving suture with abscess Insulin dependent diabetes mellitus Irregular heart beat [employer] Multiple falls Non-smoker Osteoporosis Pancytopenia Sleep apnea Thyroid disease Uses wheelchair Walker as ambulation aid Wears dentures Wears glasses Home Medications ascorbic acid (vitamin C) 500 mg chewable tablet 1,000 mg PO DAILY supplement 02/20/15 [History Last Taken 09/09/19] cholecalciferol (vitamin D3) 25 mcg (1,000 unit) tablet 1,000 unit PO BID supplement 02/20/15 [History Last Taken 09/09/19] insulin glargine 100 unit/mL (3 mL) subcutaneous pen (Lantus Solostar U-100 Insulin) 30 unit subcut BID blood sugar 05/29/18 [History Last Taken 01/30/23] tacrolimus 1 mg capsule, immediate-release (Prograf) 0.5 mg PO BID REJECTION 09/10/19 [History Last Taken 04/27/21] vitamin B complex 1 tablet PO DAILY SUPPLEMENT 09/10/19 [History Last Taken 09/09/19] carvedilol 25 mg tablet 12.5 mg PO BID heart 02/25/20 [History Last Taken 01/30/23] ropinirole 1 mg tablet 1 mg PO DAILY restless legs 05/23/20 [History Last Taken 06/16/20] ropinirole 2 mg tablet,extended release 24 hr 2 mg PO QHS restless legs 06/10/20 [History Last Taken Unknown] sevelamer carbonate 800 mg tablet (Renvela) 1,600 mg PO TIDCM kidney disease 06/10/20 [History Last Taken Unknown] nitroglycerin 0.4 mg sublingual tablet 0.4 mg sublingual Q5M PRN Cardiac/Chest Pain #30 tabs 04/29/21 [Rx Last Taken Unknown] biotin 1 mg capsule 1 mg PO BID supplement 08/11/21 [History Last Taken Unknown] sertraline 50 mg tablet (Zoloft) 50 mg PO DAILY mood 08/11/21 [History Last Taken Unknown] albuterol sulfate 90 mcg/actuation aerosol inhaler 2 puff IH Q4H PRN PRN Sob &/Or Wheezing 30 days #8.6 grams 10/25/21 [Rx Last Taken Unknown] diphenoxylate-atropine 2.5 mg-0.025 mg tablet (Lomotil) 1 tab PO TID PRN diarrhea #90 tabs 10/27/21 [Rx Last Taken 12/30/22] apremilast 30 mg tablet (Otezla) 30 mg PO DAILY 09/08/22 [History Last Taken Unknown] gabapentin 100 mg capsule 200 mg PO QHS 12/31/22 [History Last Taken Unknown] levothyroxine 88 mcg tablet 88 mcg PO DAILY 12/31/22 [History Last Taken 01/30/23] midodrine 10 mg tablet 10 mg PO MOWEFR PRN SBP <95 12/31/22 [History Last Taken Unknown] sucralfate 1 gram tablet (Carafate) 1 g PO BID #30 tabs 12/31/22 [Rx Last Taken Unknown] trazodone 100 mg tablet 200 mg PO QHS 12/31/22 [History Last Taken Unknown] pantoprazole 40 mg tablet,delayed release 40 mg PO BID #60 tabs 01/08/23 [Rx Last Taken Unknown] aspirin 81 mg tablet,delayed release (Adult Aspirin Regimen) 81 mg PO DAILY 01/28/23 [History Last Taken 01/26/23] omega 5-jvz-ori-fish oil 1,200 mg (144 mg-216 mg) capsule (Fish Oil) 1 cap PO DAILY SUPPLEMENT 01/28/23 [History Last Taken Unknown] bisacodyl 10 mg rectal suppository (Dulcolax (bisacodyl)) 10 mg AK DAILY PRN constipation #30 ea 02/12/23 [Rx Last Taken Unknown] hydrocodone-acetaminophen 5-325mg 5mg-325mg 1 tab PO Q6H PRN PRN Pain 3 days #10 TABLETS 03/27/23 [Rx Last Taken Unknown] acetaminophen 325 mg capsule 650 mg PO Q4H PRN fever or pain 04/15/23 [History Last Taken Unknown] acetaminophen 650 mg rectal suppository 650 mg AK Q4H PRN fever or pain 04/15/23 [History Last Taken Unknown] aluminum-magnesium hydroxide 225 mg-200 mg/5 mL oral suspension 30 ml PO Q4H PRN PRN GI distress 04/15/23 [History Last Taken Unknown] dextrose 40 % oral gel (Gluco Burst) 15 g PO Q15M PRN hypoglycemia 04/15/23 [History Last Taken Unknown] glucagon HCl 1 mg solution for injection (Glucagon (HCl) Emergency Kit) 1 mg IM Q20M PRN hypoglycemia 04/15/23 [History Last Taken Unknown] guaifenesin 100 mg/5 mL oral liquid 200 mg PO Q4H PRN congestion 04/15/23 [History Last Taken Unknown] insulin lispro 100 unit/mL subcutaneous pen (Humalog KwikPen (U-100) Insulin) 5 unit subcut TIDCM 04/15/23 [History Last Taken Unknown] magnesium hydroxide 400 mg/5 mL oral suspension (Milk of Magnesia) 30 ml PO DAILY PRN constipation 04/15/23 [History Last Taken Unknown] melatonin 10 mg tablet 10 mg PO QHS 04/15/23 [History Last Taken Unknown] midodrine 10 mg tablet 10 mg PO MOTUTHFR 04/15/23 [History Last Taken Unknown] sodium phosphates 19 gram-7 gram/118 mL enema (Enema) 118 ml AK DAILY PRN constipation 04/15/23 [History Last Taken Unknown] torsemide 60 mg tablet 60 mg PO DAILY 04/15/23 [History Last Taken Unknown] Allergy/AdvReac Type Severity Reaction Status Date / Time amlodipine [From Norvasc] Allergy Severe Hives Verified 04/15/23 20:55 ampicillin sodium Allergy Severe Hives Verified 04/15/23 20:55 [From Unasyn] buspirone HCl [From BuSpar] Allergy Severe Hives Verified 04/15/23 20:55 cefadroxil [From Duricef] Allergy Severe Hives Verified 04/15/23 20:55 lisinopril Allergy Severe Swelling Verified 04/15/23 20:55 naproxen Allergy Severe Hives Verified 04/15/23 20:55 niacin Allergy Severe Hives Verified 04/15/23 20:55 [From Niaspan Extended-Release] sulbactam sodium Allergy Severe Hives Verified 04/15/23 20:55 [From Unasyn] Sulfa (Sulfonamide Allergy Severe Hives Verified 04/15/23 20:55 Antibiotics) cephalexin [From Keflex] Allergy Vomiting Verified 04/15/23 20:55 omeprazole AdvReac Severe Other Verified 04/15/23 20:55 losartan AdvReac Swelling Verified 04/15/23 20:55 Family History Mother Diabetes Anemia Father Hypertension LUNG/RESPIRATORY DISEASE Surgical History History of appendectomy History of cardiac catheterization History of cholecystectomy History of coronary artery stent placement History of coronary artery stent placement History of left knee surgery History of left salpingo-oophorectomy History of liver transplant History of radical hysterectomy History of ventral hernia repair S/P arteriovenous (AV) fistula creation (~06/16/20) Social History housing: apartment current occupational status: disabled Smoking Status: Never smoker substance use type: does not use ROS ROS Narrative See HPI Review of Systems ROS Unobtainable: due to mental status Physical Exam Const alert and no apparent distress Constitutional Narrative: Patient is somewhat confused but readily looking around the room General Appearance: cooperative; Negative for ill appearing Orientation / Consciousness: confused HEENT normocephalic, head/scalp atraumatic, hearing grossly normal bilaterally and moist oral mucous membranes Eyes PERRL, EOMs intact bilaterally and conjunctivae normal Neck no lymphadenopathy and supple Resp Auscultation: rhonchi right lower; Negative for rales or wheezes Cardio regular rate, regular rhythm, S1 normal heart sound, S2 normal heart sound, no murmurs, no rub and no gallops GI normal to inspection, nondistended, normoactive bowel sounds, soft to palpation, non-tender and non-distended Extremity Extremity Narrative: 2+ bilateral lower extremity edema. Some tenderness to palpation bilateral legs Skin no rashes or lesions noted Neuro CN's II-XII intact bilaterally, moves all extremities and no focal motor deficits Sensorium / Orientation: awake, alert, oriented to person and oriented to place Psych cooperative Mood & Affect: flat affect Medical Records Data Attestation: I reviewed the patient's medical records Lab / Micro Data Attestation: I reviewed the patient's lab results. 04/16/23 05:45 04/16/23 05:45 Labs: Laboratory Results - last 24 hr 04/15/23 21:11: Lactic Acid 3.4 H*, Ammonia 22.0, B-Natriuretic Peptide 190.4 H 04/15/23 21:20: WBC 5.4, RBC 3.31 L, Hgb 9.4 L, Hct 31.0 L, MCV 93.7, MCH 28.4, MCHC 30.3 L, RDW Std Deviation 65.1 H, RDW Coeff of Tami 19.4 H, Plt Count 76 L, MPV 9.8, Immature Gran % (Auto) 0.900, Neut % (Auto) 85.6 H, Lymph % (Auto) 8.3 L, Petroleum % (Auto) 4.4, Eos % (Auto) 0.6, Baso % (Auto) 0.2, Absolute Neuts (auto) 4.6, Absolute Lymphs (auto) 0.45 L, Nucleated RBC % 0, Differential Comment SCANNED, Sodium 133 L, Potassium 4.4, Chloride 96 L, Carbon Dioxide 28.0, Anion Gap 9, BUN 30 H, Creatinine 5.80 H, Est GFR (MDRD) Af Amer 9 L, Est GFR (MDRD) Non-Af 8 L, BUN/Creatinine Ratio 5.2 L, Glucose 162 H, Calcium 8.9, Total Bilirubin 0.50, AST 23, ALT 24, Alkaline Phosphatase 150 H, Troponin I High Sens 27, Total Protein 6.3 L, Albumin 2.6 L, Globulin 3.7, Albumin/Globulin Ratio 0.7 L 04/16/23 01:47: Lactic Acid 2.8 H* 04/16/23 05:45: WBC 7.2, RBC 2.75 L, Hgb 8.0 L, Hct 26.0 L, MCV 94.5, MCH 29.1, MCHC 30.8 L, RDW Std Deviation 66.5 H, RDW Coeff of Tami 19.7 H, Plt Count 62 L, MPV 10.5, Immature Gran % (Auto) 1.500 H, Neut % (Auto) 83.2 H, Lymph % (Auto) 11.6 L, Petroleum % (Auto) 3.5, Eos % (Auto) 0.1, Baso % (Auto) 0.1, Absolute Neuts (auto) 6.0, Absolute Lymphs (auto) 0.84, Nucleated RBC % 0, Platelet Estimate MOD DEC, Anisocytosis 2+, Sodium 134 L, Potassium 5.2 H, Chloride 99, Carbon Dioxide 27.0, Anion Gap 8, BUN 34 H, Creatinine 5.80 H, Estim Creat Clear Calc 12.00, Est GFR (MDRD) Af Amer 9 L, Est GFR (MDRD) Non-Af 8 L, BUN/Creatinine Ratio 5.9 L, Glucose 96, Calcium 8.2 L Micro: Microbiology 04/15/23 21:26 Mucosa - Nose SARS-CoV-2, Influenza & RSV (PCR) - Final Influenzae A Imaging Radiology Impression Chest X-Ray 04/15/23 21:34 IMPRESSION: Possible mild vascular congestion with superimposed left lower lobe pneumonia. [place] of markings in the right lower lobe versus atelectasis versus infiltrate. Electronically Signed: Flora Solis MD at 22:18 EST , Chest X-Ray 04/16/23 05:55 IMPRESSION: 1. No significant change in left greater than right suspected lower lobe pneumonia. 2. No significant change in findings suspicious for bronchitis, age-indeterminate. 3. Remaining examination stable. Electronically Signed: Chapincito Livingston MD at 4:26 EST , Charges/Coding Visit Charges Inpatient E&M: 55622 Init Hosp L3
[2023-04-16 08:07] LABS: Bedside Glucose 82 mg/dL (74-106)
[2023-04-16] MEDS: Aspirin E.C. 81 MG Tablet PO (08:13)
[2023-04-16] MEDS: Pantoprazole Sodium 40 MG Tablet PO ×2 (08:13→20:20)
[2023-04-16] MEDS: Ascorbic Acid 500 MG Tablet 1000 MG PO (08:13)
[2023-04-16] MEDS: Oseltamivir Phosphate 30 MG Capsule PO (08:13)
[2023-04-16] MEDS: Cholecalciferol (VIT D3) 25 MCG TABLET (1,000 UNITS) PO ×2 (08:14→20:20)
[2023-04-16] MEDS: Sertraline 50 MG Tablet PO (08:14)
[2023-04-16] MEDS: Vitamin B Comp W-C Capsule 1 CAP PO (08:14)
[2023-04-16] MEDS: Pramipexole Di-HCl 0.5 MG Tablet PO (08:14)
[2023-04-16] MEDS: SEVELAMER CARBONATE 800 MG TABLET 1600 MG PO ×3 (08:14→17:19)
[2023-04-16] MEDS: Insulin Glargine-YFGN 100 UNIT/ML Pen 20 UNIT SC ×2 (08:15→20:21)
[2023-04-16] MEDS: Tacrolimus 0.5 MG Capsule PO ×2 (08:15→20:22)
[2023-04-16] MEDS: Nystatin Powder 15gm Bottle 1 APPLIC TOPICAL ×2 (08:15→20:22)
--- NOTE | 2023-04-16 09:22 | CASEMGMT ---
Social Work SW participated in ICU rounds. Pt is here from [facility]. SW spoke w/pt, plan is to return when ready for discharge, SNF list not needed. SW will continue to follow. DEBBY Parish
--- NOTE | 2023-04-16 09:24 | EKG12_ITS ---
Test Reason : Rhythm Change Blood Pressure : / mmHG Vent. Rate : 082 BPM Atrial Rate : 082 BPM P-R Int : 202 ms QRS Dur : 136 ms QT Int : 406 ms P-R-T Axes : 062 -49 023 degrees QTc Int : 474 ms Normal sinus rhythm Left axis deviation Left bundle branch block Abnormal ECG When compared with ECG of 15-APR-2023 21:09, MANUAL COMPARISON REQUIRED, DATA IS UNCONFIRMED Confirmed by Aravind Desir ([id number]), advertising editor STEPHANIE PHAM ([id number]) on 04/16/2023 1:51:57 PM Referred By: Rm Confirmed By:Aravind Desir
--- NOTE | 2023-04-16 09:24 | CASEMGMT ---
Social Work Healthcare POA and Living Will both on the front of the paper chart, pt's Don is listed as healthcare POA. DEBBY Parish
[2023-04-16] MEDS: Ondansetron 4 MG/2 ML Vial IV ×2 (09:30→18:47)
--- NOTE | 2023-04-16 09:40 | NURSING ---
patient up in chair, more hypotensive, oriented but more drowsy and stated I just don't feel good. This RN laid chair back, ICU rounds completed and Dr. Abdalla made aware, next BP remains low, x2 assist SPT to bed, trendelenburg position, EKG obtained for more peaked T waves and PVCs, patient nauseated, order for zofran, sat head of bed up given nausea, Dr. Strickland updated as well.
[2023-04-16] MEDS: TITRATION PARAMETER CHANGE 1 EACH IV (10:37)
[2023-04-16] MEDS: Norepinephrine 8 MG in 0.9% Normal Saline (250mL Bag) 242 ML 9.40000000000000036 MG CONT INF (10:37)
[2023-04-16 11:41] LABS: Bedside Glucose 117 mg/dL (74-106)
--- NOTE | 2023-04-16 14:18 | CON.PCM.RE_ITS ---
Assessment & Plan Assessment/Plan (1) End stage renal disease on dialysis: (2) Sepsis: QUALIFIERS: Sepsis type: sepsis due to unspecified organism Sepsis acute organ dysfunction status: with acute organ dysfunction Severe sepsis acute organ dysfunction type: encephalopathy Severe sepsis shock status: without septic shock Qualified Code(s): A41.9 - Sepsis, unspecified organism; R 65.20 - Severe sepsis without septic shock; G93.41 - Metabolic encephalopathy (3) Influenza A: (4) Anemia in chronic kidney disease: PLAN: Plan This is a 67-year-old female with past medical history significant for ESRD on hemodialysis who presented emergency room with complaints of shortness of breath and feeling unwell. Tested positive for influenza A and chest x-ray concerning for pneumonia. Patient noted to be hypotensive in the emergency room, admitted for sepsis, started on Levophed drip. Blood pressures have improved on Levophed drip. Nephrology consulted for dialysis management. There is no acute indication for renal placement therapy today. Will plan for dialysis tomorrow, her potassium is 5.2, patient will be on 2K bath with dialysis tomorrow. Recommend renal diet. Typically patient is not significantly hypotensive during dialysis and she is able to tolerate fluid removal with her treatments. Patient has been started on midodrine. Patient has a history of anemia of chronic disease and receives SHAYE and iron with dialysis. Will monitor hemoglobin trends. Further orders forthcoming as hospitalization evolves, thank you for a llowing us participate in the care of Ms. Kuo. HPI Consult Data Date of Consult: 04/16/23 HPI Narrative HPI Narrative: CHRISTINA KUO, is a 67 F with past medical history significant for ESRD on hemodialysis at [facility] on a Saturday, Saturday, , Saturday schedule who was brought to the emergency room early this morning for evaluation of shortness of breath. Workup in the emergency room patient tested positive for influenza A, chest x-ray showed infiltrates. Patient was also noted to be hypotensive, she was admitted to ICU on Levophed drip. Nephrology consulted for management of hemodialysis. Patient last dialyzed on Saturday at the [facility]. She is alert and oriented, reports feeling better today. [facility]LY [facility] Medical History (Updated 04/16/23 @ 14:21 by BAILEY Asher) Anemia Anemia in chronic kidney disease Anxiety Back pain Blister Cancer Cardiology follow-up encounter Celiac disease Chronic kidney disease, stage 3 Chronic kidney failure Chronic renal failure, stage 5 Cirrhosis COPD (chronic obstructive pulmonary disease) Depression Diabetes Dialysis patient DVT (deep venous thrombosis) DVT (deep venous thrombosis) ESRD (end stage renal disease) Gastric reflux GERD (gastroesophageal reflux disease) History of echocardiogram (~01/22/20) History of edema History of irregular heartbeat History of renal dialysis History of renal disease History of stress test (~12/07/19) History of uterine cancer Hx of Krueger's palsy Hypertension Hypertension Hypothyroidism Infection involving suture with abscess Insulin dependent diabetes mellitus Irregular heart beat [employer] Multiple falls Non-smoker Osteoporosis Pancytopenia Sleep apnea Thyroid disease Uses wheelchair Walker as ambulation aid Wears dentures Wears glasses Home Medications ascorbic acid (vitamin C) 500 mg chewable tablet 1,000 mg PO DAILY supplement 02/20/15 [History Last Taken 09/09/19] cholecalciferol (vitamin D3) 25 mcg (1,000 unit) tablet 1,000 unit PO BID supplement 02/20/15 [History Last Taken 09/09/19] insulin glargine 100 unit/mL (3 mL) subcutaneous pen (Lantus Solostar U-100 Insulin) 30 unit subcut BID blood sugar 05/29/18 [History Last Taken 01/30/23] tacrolimus 1 mg capsule, immediate-release (Prograf) 0.5 mg PO BID REJECTION 09/10/19 [History Last Taken 04/27/21] vitamin B complex 1 tablet PO DAILY SUPPLEMENT 09/10/19 [History Last Taken 09/09/19] carvedilol 25 mg tablet 12.5 mg PO BID heart 02/25/20 [History Last Taken 01/30/23] ropinirole 1 mg tablet 1 mg PO DAILY restless legs 05/23/20 [History Last Taken 06/16/20] ropinirole 2 mg tablet,extended release 24 hr 2 mg PO QHS restless legs 06/10/20 [History Last Taken Unknown] sevelamer carbonate 800 mg tablet (Renvela) 1,600 mg PO TIDCM kidney disease 06/10/20 [History Last Taken Unknown] nitroglycerin 0.4 mg sublingual tablet 0.4 mg sublingual Q5M PRN Cardiac/Chest Pain #30 tabs 04/29/21 [Rx Last Taken Unknown] biotin 1 mg capsule 1 mg PO BID supplement 08/11/21 [History Last Taken Unknown] sertraline 50 mg tablet (Zoloft) 50 mg PO DAILY mood 08/11/21 [History Last Taken Unknown] albuterol sulfate 90 mcg/actuation aerosol inhaler 2 puff IH Q4H PRN PRN Sob &/Or Wheezing 30 days #8.6 grams 10/25/21 [Rx Last Taken Unknown] diphenoxylate-atropine 2.5 mg-0.025 mg tablet (Lomotil) 1 tab PO TID PRN diarrhea #90 tabs 10/27/21 [Rx Last Taken 12/30/22] apremilast 30 mg tablet (Otezla) 30 mg PO DAILY 09/08/22 [History Last Taken Unknown] gabapentin 100 mg capsule 200 mg PO QHS 12/31/22 [History Last Taken Unknown] levothyroxine 88 mcg tablet 88 mcg PO DAILY 12/31/22 [History Last Taken 01/30/23] midodrine 10 mg tablet 10 mg PO MOWEFR PRN SBP <95 12/31/22 [History Last Taken Unknown] sucralfate 1 gram tablet (Carafate) 1 g PO BID #30 tabs 12/31/22 [Rx Last Taken Unknown] trazodone 100 mg tablet 200 mg PO QHS 12/31/22 [History Last Taken Unknown] pantoprazole 40 mg tablet,delayed release 40 mg PO BID #60 tabs 01/08/23 [Rx Last Taken Unknown] aspirin 81 mg tablet,delayed release (Adult Aspirin Regimen) 81 mg PO DAILY 01/28/23 [History Last Taken 01/26/23] omega 8-dcp-yeb-fish oil 1,200 mg (144 mg-216 mg) capsule (Fish Oil) 1 cap PO DAILY SUPPLEMENT 01/28/23 [History Last Taken Unknown] bisacodyl 10 mg rectal suppository (Dulcolax (bisacodyl)) 10 mg AR DAILY PRN constipation #30 ea 02/12/23 [Rx Last Taken Unknown] hydrocodone-acetaminophen 5-325mg 5mg-325mg 1 tab PO Q6H PRN PRN Pain 3 days #10 TABLETS 03/27/23 [Rx Last Taken Unknown] acetaminophen 325 mg capsule 650 mg PO Q4H PRN fever or pain 04/15/23 [History Last Taken Unknown] acetaminophen 650 mg rectal suppository 650 mg AR Q4H PRN fever or pain 04/15/23 [History Last Taken Unknown] aluminum-magnesium hydroxide 225 mg-200 mg/5 mL oral suspension 30 ml PO Q4H PRN PRN GI distress 04/15/23 [History Last Taken Unknown] dextrose 40 % oral gel (Gluco Burst) 15 g PO Q15M PRN hypoglycemia 04/15/23 [History Last Taken Unknown] glucagon HCl 1 mg solution for injection (Glucagon (HCl) Emergency Kit) 1 mg IM Q20M PRN hypoglycemia 04/15/23 [History Last Taken Unknown] guaifenesin 100 mg/5 mL oral liquid 200 mg PO Q4H PRN congestion 04/15/23 [History Last Taken Unknown] insulin lispro 100 unit/mL subcutaneous pen (Humalog KwikPen (U-100) Insulin) 5 unit subcut TIDCM 04/15/23 [History Last Taken Unknown] magnesium hydroxide 400 mg/5 mL oral suspension (Milk of Magnesia) 30 ml PO DAILY PRN constipation 04/15/23 [History Last Taken Unknown] melatonin 10 mg tablet 10 mg PO QHS 04/15/23 [History Last Taken Unknown] midodrine 10 mg tablet 10 mg PO MOTUTHFR 04/15/23 [History Last Taken Unknown] sodium phosphates 19 gram-7 gram/118 mL enema (Enema) 118 ml AR DAILY PRN constipation 04/15/23 [History Last Taken Unknown] torsemide 60 mg tablet 60 mg PO DAILY 04/15/23 [History Last Taken Unknown] Allergy/AdvReac Type Severity Reaction Status Date / Time amlodipine [From Norvasc] Allergy Severe Hives Verified 04/15/23 20:55 ampicillin sodium Allergy Severe Hives Verified 04/15/23 20:55 [From Unasyn] buspirone HCl [From BuSpar] Allergy Severe Hives Verified 04/15/23 20:55 cefadroxil [From Duricef] Allergy Severe Hives Verified 04/15/23 20:55 lisinopril Allergy Severe Swelling Verified 04/15/23 20:55 naproxen Allergy Severe Hives Verified 04/15/23 20:55 niacin Allergy Severe Hives Verified 04/15/23 20:55 [From Niaspan Extended-Release] sulbactam sodium Allergy Severe Hives Verified 04/15/23 20:55 [From Unasyn] Sulfa (Sulfonamide Allergy Severe Hives Verified 04/15/23 20:55 Antibiotics) cephalexin [From Keflex] Allergy Vomiting Verified 04/15/23 20:55 omeprazole AdvReac Severe Other Verified 04/15/23 20:55 losartan AdvReac Swelling Verified 04/15/23 20:55 Family History Mother Diabetes Anemia Father Hypertension LUNG/RESPIRATORY DISEASE Surgical History History of appendectomy History of cardiac catheterization History of cholecystectomy History of coronary artery stent placement History of coronary artery stent placement History of left knee surgery History of left salpingo-oophorectomy History of liver transplant History of radical hysterectomy History of ventral hernia repair S/P arteriovenous (AV) fistula creation (~06/16/20) Social History housing: apartment current occupational status: disabled Smoking Status: Never smoker substance use type: does not use ROS ROS Narrative As in HPI and past medical history Physical Exam Narrative Alert orient x 3, no apparent distress S1, S2, RRR Diminished breath sounds, no rales or rhonchi Abdomen soft, nontender, positive bowel sounds No pitting edema AV fistula positive thrill and bruit Lab / Micro Data 04/16/23 05:45 04/16/23 05:45 Labs: Laboratory Results - last 24 hr 04/15/23 21:11: Lactic Acid 3.4 H*, Ammonia 22.0, B-Natriuretic Peptide 190.4 H 04/15/23 21:20: WBC 5.4, RBC 3.31 L, Hgb 9.4 L, Hct 31.0 L, MCV 93.7, MCH 28.4, MCHC 30.3 L, RDW Std Deviation 65.1 H, RDW Coeff of Tami 19.4 H, Plt Count 76 L, MPV 9.8, Immature Gran % (Auto) 0.900, Neut % (Auto) 85.6 H, Lymph % (Auto) 8.3 L, [place] % (Auto) 4.4, Eos % (Auto) 0.6, Baso % (Auto) 0.2, Absolute Neuts (auto) 4.6, Absolute Lymphs (auto) 0.45 L, Nucleated RBC % 0, Differential Comment SCANNED, Sodium 133 L, Potassium 4.4, Chloride 96 L, Carbon Dioxide 28.0, Anion Gap 9, BUN 30 H, Creatinine 5.80 H, Est GFR (MDRD) Af Amer 9 L, Est GFR (MDRD) Non-Af 8 L, BUN/Creatinine Ratio 5.2 L, Glucose 162 H, Calcium 8.9, Total Bilirubin 0.50, AST 23, ALT 24, Alkaline Phosphatase 150 H, Troponin I High Sens 27, Total Protein 6.3 L, Albumin 2.6 L, Globulin 3.7, Albumin/Globulin Ratio 0.7 L 04/16/23 01:47: Lactic Acid 2.8 H* 04/16/23 05:45: WBC 7.2, RBC 2.75 L, Hgb 8.0 L, Hct 26.0 L, MCV 94.5, MCH 29.1, MCHC 30.8 L, RDW Std Deviation 66.5 H, RDW Coeff of Tami 19.7 H, Plt Count 62 L, MPV 10.5, Immature Gran % (Auto) 1.500 H, Neut % (Auto) 83.2 H, Lymph % (Auto) 11.6 L, [place] % (Auto) 3.5, Eos % (Auto) 0.1, Baso % (Auto) 0.1, Absolute Neuts (auto) 6.0, Absolute Lymphs (auto) 0.84, Nucleated RBC % 0, Platelet Estimate MOD DEC, Anisocytosis 2+, Sodium 134 L, Potassium 5.2 H, Chloride 99, Carbon Dioxide 27.0, Anion Gap 8, BUN 34 H, Creatinine 5.80 H, Estim Creat Clear Calc 12.00, Est GFR (MDRD) Af Amer 9 L, Est GFR (MDRD) Non-Af 8 L, BUN/Creatinine Ratio 5.9 L, Glucose 96, Calcium 8.2 L 04/16/23 07:48: POC Glucose 82 04/16/23 11:20: POC Glucose 117 H Micro: Microbiology 04/16/23 06:25 Nasal Secretion MRSA (PCR) - Final 04/15/23 21:26 Mucosa - Nose SARS-CoV-2, Influenza & RSV (PCR) - Final Influenzae A Imaging Radiology Impression Chest X-Ray 04/15/23 21:34 IMPRESSION: Possible mild vascular congestion with superimposed left lower lobe pneumonia. [place] of markings in the right lower lobe versus atelectasis versus infiltrate. Electronically Signed: Flora Solis MD at 22:18 EST , Chest X-Ray 04/16/23 05:55 IMPRESSION: 1. No significant change in left greater than right suspected lower lobe pneumonia. 2. No significant change in findings suspicious for bronchitis, age-indeterminate. 3. Remaining examination stable. Electronically Signed: Chapincito Livingston MD at 4:26 EST ,
[2023-04-16 14:40] LABS: Anion Gap 8 (5-15); BUN 39 mg/dL (7-18); BUN/Creat Ratio 6.3 RATIO (10-20); Calcium,Total 8.6 mg/dL (8.5-10.1); Chloride 97 mmol/L (98-107); Creatinine, Serum 6.19 mg/dL (0.55-1.02); EST Glomerular Filtration Rate 7 mL/min (>60); Est Glom Filt Rate - Afr Amer 9 mL/min (>60); Estimated Creatinine Clearance 11.24 ml/min; Glucose 154 mg/dL (74-106); Potassium 5.6 mmol/L (3.5-5.1); Sodium Level 132 mmol/L (136-145)
[2023-04-16] MEDS: PureFlow B 2K Dialysis Soln 1 BAG 6 BAG PF (14:53)
[2023-04-16] MEDS: 0.9% Normal Saline 1,000 ML IV.SOLN. 1000 ML OPERA.SITE (14:53)
--- NOTE | 2023-04-16 15:24 | PN.HOSP_ITS ---
Reason for Visit Reason for Visit: Diagnoses Sepsis, unspecified organism (04/15/23) Metabolic encephalopathy (04/15/23) Influenza due to other identified influenza virus with other respiratory manifestations (04/15/23) End stage renal disease (04/15/23) Severe sepsis without septic shock (04/15/23) Dependence on renal dialysis (04/15/23) Subjective Subjective Was seen and examined today, I discussed her care with critical care today, patient's white blood cell count today is 7.2, she is currently on 2 L of oxygen. She is alert and appropriate, she does complain of feeling tired and she complains of malaise. Objective Data Objective Data Vital Signs: Vital Signs Temp Pulse Resp BP Pulse Ox O2 Del Method O2 Flow Rate 97.1 F L 75 20 H 129/45 H 97 Nasal Cannula 2 04/16/23 14:31 04/16/23 15:11 04/16/23 15:11 04/16/23 15:11 04/16/23 15:11 04/16/23 15:11 04/16/23 15:11 Oxygen Flow Rate (L/min) 2 Oxygen Delivery Method Nasal Cannula Weight: 111 kg Body Mass Index (BMI) 40.3 Intake & Output: Intake and Output for Last 24 Hours 04/14/23 04/15/23 04/16/23 23:59 23:59 23:59 Intake Total 19.75 / 19.75 2920.65 / 2920.65 Balance 19.75 / 19.75 2920.65 / 2920.65 Lab / Micro Data 04/16/23 05:45 04/16/23 14:16 Labs: Laboratory Results - last 24 hr 04/15/23 21:11: Lactic Acid 3.4 H*, Ammonia 22.0, B-Natriuretic Peptide 190.4 H 04/15/23 21:20: WBC 5.4, RBC 3.31 L, Hgb 9.4 L, Hct 31.0 L, MCV 93.7, MCH 28.4, MCHC 30.3 L, RDW Std Deviation 65.1 H, RDW Coeff of Tami 19.4 H, Plt Count 76 L, MPV 9.8, Immature Gran % (Auto) 0.900, Neut % (Auto) 85.6 H, Lymph % (Auto) 8.3 L, [place] % (Auto) 4.4, Eos % (Auto) 0.6, Baso % (Auto) 0.2, Absolute Neuts (auto) 4.6, Absolute Lymphs (auto) 0.45 L, Nucleated RBC % 0, Differential Comment SCANNED, Sodium 133 L, Potassium 4.4, Chloride 96 L, Carbon Dioxide 28.0, Anion Gap 9, BUN 30 H, Creatinine 5.80 H, Est GFR (MDRD) Af Amer 9 L, Est GFR (MDRD) Non-Af 8 L, BUN/Creatinine Ratio 5.2 L, Glucose 162 H, Calcium 8.9, Total Bilirubin 0.50, AST 23, ALT 24, Alkaline Phosphatase 150 H, Troponin I High Sens 27, Total Protein 6.3 L, Albumin 2.6 L, Globulin 3.7, Albumin/Globulin Ratio 0.7 L 04/16/23 01:47: Lactic Acid 2.8 H* 04/16/23 05:45: WBC 7.2, RBC 2.75 L, Hgb 8.0 L, Hct 26.0 L, MCV 94.5, MCH 29.1, MCHC 30.8 L, RDW Std Deviation 66.5 H, RDW Coeff of Tami 19.7 H, Plt Count 62 L, MPV 10.5, Immature Gran % (Auto) 1.500 H, Neut % (Auto) 83.2 H, Lymph % (Auto) 11.6 L, [place] % (Auto) 3.5, Eos % (Auto) 0.1, Baso % (Auto) 0.1, Absolute Neuts (auto) 6.0, Absolute Lymphs (auto) 0.84, Nucleated RBC % 0, Platelet Estimate MOD DEC, Anisocytosis 2+, Sodium 134 L, Potassium 5.2 H, Chloride 99, Carbon Dioxide 27.0, Anion Gap 8, BUN 34 H, Creatinine 5.80 H, Estim Creat Clear Calc 12.00, Est GFR (MDRD) Af Amer 9 L, Est GFR (MDRD) Non-Af 8 L, BUN/Creatinine Ratio 5.9 L, Glucose 96, Calcium 8.2 L 04/16/23 07:48: POC Glucose 82 04/16/23 11:20: POC Glucose 117 H 04/16/23 14:16: Sodium 132 L, Potassium 5.6 H, Chloride 97 L, Carbon Dioxide 27.0, Anion Gap 8, BUN 39 H, Creatinine 6.19 H, Estim Creat Clear Calc 11.24, Est GFR (MDRD) Af Amer 9 L, Est GFR (MDRD) Non-Af 7 L, BUN/Creatinine Ratio 6.3 L, Glucose 154 H, Calcium 8.6 Micro: Microbiology 04/16/23 06:25 Nasal Secretion MRSA (PCR) - Final 04/15/23 21:26 Mucosa - Nose SARS-CoV-2, Influenza & RSV (PCR) - Final Influenzae A Radiography Diagnostic Testing: Radiology Impression Chest X-Ray 04/15/23 21:34 IMPRESSION: Possible mild vascular congestion with superimposed left lower lobe pneumonia. [place] of markings in the right lower lobe versus atelectasis versus infiltrate. Electronically Signed: Flora Solis MD at 22:18 EST , Chest X-Ray 04/16/23 05:55 IMPRESSION: 1. No significant change in left greater than right suspected lower lobe pneumonia. 2. No significant change in findings suspicious for bronchitis, age-indeterminate. 3. Remaining examination stable. Electronically Signed: Chapincito Livingston MD at 4:26 EST , Physical Exam Const alert, oriented x3 and no apparent distress Constitutional Narrative: Patient is morbidly obese, she appears older than her stated age General Appearance: cooperative, well kempt and well developed Orientation / Consciousness: awake, oriented to person, oriented to place and oriented to time HEENT normocephalic, head/scalp atraumatic and moist oral mucous membranes Eyes PERRL, EOMs intact bilaterally and conjunctivae normal Neck supple, no JVD, thyroid normal and no carotid bruits General: trachea midline Resp normal respiratory effort, no retractions, no use of accessory muscles and clear to auscultation bilaterally Auscultation: Negative for rales, rhonchi or wheezes Cardio regular rate, regular rhythm, S1 normal heart sound, S2 normal heart sound, no murmurs, no rub and no gallops GI normal to inspection, nondistended, normoactive bowel sounds, soft to palpation, non-tender and non-distended Extremity no clubbing, cyanosis or edema Skin no rashes or lesions noted General Skin Exam: no breakdown Neuro oriented x3, CN's II-XII intact bilaterally, moves all extremities, no focal motor deficits and no sensory deficits noted Sensorium / Orientation: awake and alert Speech: speech normal Psych affect normal Assessment & Plan Assessment/Plan (1) Sepsis with encephalopathy without septic shock: QUALIFIERS: Sepsis type: sepsis due to unspecified organism Tarun lified Code(s): A41.9 - Sepsis, unspecified organism; R65.20 - Severe sepsis without septic shock; G93.41 - Metabolic encephalopathy PLAN: Plan 1. Sepsis secondary to influenza A with possible bacterial infection (urinary tract infection, bacterial pneumonia)-patient will remain on her current antibiotic coverage, cultures are pending #2 end-stage renal disease requiring dialysis-nephrology is participating in her care #3 past history of liver transplant-on immunosuppressant drugs, complicates care, medical course, recovery, and prognosis #4 morbid obesity-complicates care, medical course, recovery, and prognosis #5 hypothyroidism-patient is on Synthroid #6 type 2 diabetes-patient's blood sugars will be monitored, sliding scale insulin will be administered as needed #7 chronic diastolic CHF without exacerbation-complicates care, medical course, recovery, and prognosis Total clinical time spent by myself addressing the patient's medical issues, reviewing all of her data, and collaborating with the patient's care team: 35 minutes Charges/Coding Visit Charges Inpatient E&M: 28047 Subs Hosp L2
[2023-04-16] MEDS: Menthol/Lanolin/Calamine/Znox 113 GM Tube 1 APPLIC TOPICAL ×2 (17:18→20:20)
[2023-04-16] MEDS: Ensure Clear 120 ML Liquid PO (17:19)
[2023-04-16] MEDS: Acetaminophen 325 MG Tablet 650 MG PO (17:32)
[2023-04-16 17:52] LABS: Bedside Glucose 113 mg/dL (74-106)
[2023-04-16] MEDS: MELATONIN 10 MG TABLET PO (20:19)
[2023-04-16] MEDS: Gabapentin 100 MG Capsule 200 MG PO (20:19)
[2023-04-16] MEDS: traZODone 100 MG Tablet 200 MG PO (20:20)
[2023-04-16 20:33] LABS: Bedside Glucose 177 mg/dL (74-106)
[2023-04-17] VITALS (50 sets, daily range): BP systolic 92–151; BP diastolic 27–91; PULSE 63–82; RESP 13–21; TEMP 36.3–36.6; O2SAT 91–100; BMI 40.1
[2023-04-17] MEDS: Norepinephrine 8 MG in 0.9% Normal Saline (250mL Bag) 242 ML 18.8000000000000007 MG CONT INF (03:48)
[2023-04-17 05:00] LABS: Absolute Lymphocyte Count 0.91 X10^3/uL (0.83-4.51); Absolute Neutrophil Count 5.7 X10^3/uL (2.0-7.7); Basophil# 0.01 X10^3/uL; Basophil% 0.1 % (0-1); Eosinophil# 0.13 X10^3/uL; Eosinophils% 1.8 % (0-5); Hematocrit 30.2 % (37-47); Lymphocyte # 0.91 X10^3/ul (0.83-4.51); Lymphocyte % 12.9 % (19-41); Mean Corp Hgb Conc 29.8 g/dL (32-36); Mean Corpuscular Hgb 28.4 pg (27.0-32.0); Mean Corpuscular Volume 95.3 fL (81-99); Mean Platelet Vol. 9.9 fl (6.2-12.0); Monocyte# 0.25 X10^3/uL; Monocyte% 3.6 % (0-10); NRBC Flagged by Analyzer 0 % (0-5); Neutrophil # 5.68 X10^3/uL (2.7-7.7); Neutrophil % 80.9 % (47-70); POSITIVE COUNT YES; POSITIVE MORPHOLOGY YES; Platelet Count 71 K/mm3 (150-450); RBC Distribution Width CV 19.8 % (11.6-14.6); RBC Distribution Width SD 68.1 fl (35.1-43.9); Red Blood Count 3.17 M/mm3 (4.2-5.4)
[2023-04-17 05:04] LABS: Differential Indicated SCAN CRITERIA MET
[2023-04-17 05:27] LABS: Anion Gap 7 (5-15); BUN 36 mg/dL (7-18); BUN/Creat Ratio 6.6 RATIO (10-20); Chloride 99 mmol/L (98-107); Creatinine, Serum 5.45 mg/dL (0.55-1.02); EST Glomerular Filtration Rate 8 mL/min (>60); Est Glom Filt Rate - Afr Amer 10 mL/min (>60); Estimated Creatinine Clearance 12.75 ml/min; Glucose 114 mg/dL (74-106); Sodium Level 134 mmol/L (136-145)
[2023-04-17] MEDS: Sucralfate 1 GM Tablet PO ×2 (05:32→15:31)
[2023-04-17] MEDS: Levothyroxine 88 MCG Tablet PO (05:32)
[2023-04-17] MEDS: Pramipexole Di-HCl 0.25 MG Tablet PO ×3 (05:34→19:54)
[2023-04-17] MEDS: Menthol/Lanolin/Calamine/Znox 113 GM Tube 1 APPLIC TOPICAL ×3 (05:35→19:54)
[2023-04-17 05:48] LABS: Anisocytosis RARE; Platelet Estimate MOD DEC (ADEQ)
--- NOTE | 2023-04-17 07:04 | PCM.PN.INT ---
Assessment & Plan Assessment/Plan (1) Influenza A: (2) Sepsis with encephalopathy without septic shock: QUALIFIERS: Sepsis type: sepsis due to unspecified organism Qualified Code(s): A41.9 - Sepsis, unspecified organism; R65.20 - Severe sepsis without septic shock; G93.41 - Metabolic encephalopathy (3) End stage renal disease on dialysis: PLAN: Plan RECOMMENDATIONS: 1. Continue antibiotics pending cultures 2. Dialysis per nephrology 3. Increase activity as tolerated 4. No transfusions at this time, but monitor daily 5. Continue midodrine at increased doses IMPRESSIONS: 1. Septic shock secondary to influenza A with possible secondary bacterial infection Patient has tested positive for influenza A. Endorgan damage demonstrated by altered mental status and lethargy on presentation. Patient is immunosuppressed at baseline, so secondary bacterial infection should be considered. Patient does have bilateral infiltrates on chest x-ray. Patient is on Tamiflu. Off vancomycin, but remains on antibiotics pending cultures. Oxygenation status does appear to be improving and patient is off of pressors. 2. Pancytopenia while on immunosuppression status post liver transplant with [facility] Patient's blood counts appear to be at the baseline. There is no indication for transfusion at this time. Patient is on tacrolimus at baseline. This will be continued. Cannot exclude an element of sequestration secondary to problem #1. Patient is not neutropenic. 3. End-stage renal disease on hemodialysis Unclear if patient's hypotension is secondary to sepsis versus dialysis yesterday. Patient was able to tolerate 2 hours of hemodialysis yesterday. Nephrology is following and will dictate dialysis plans. 4. Osteoarthritis/hypertension/hyperlipidemia/hypothyroidism/morbid obesity/diabetes/history of DVT/CAD/psoriasis/RLS Complicates care, management, recovery and prognosis. Antihypertensives have been held secondary to problem #1. Okay to resume baseline medications. Hemoglobin A1c is suggestive of relatively good control of diabetes. Sliding scale insulin likely sufficient given variable p.o. intake. Subjective Subjective Patient did okay overnight. Patient did have to be initiated on pressors yesterday afternoon secondary to hypotension. Patient also was able to tolerate a short course of hemodialysis. Oxygenation status has significantly improved. Pressors were discontinued this morning Objective Data Objective Data Vital Signs: Vital Signs Temp Pulse Resp BP Pulse Ox O2 Del Method O2 Flow Rate 36.4 C L 75 20 H 106/45 L 97 Nasal Cannula 2 04/17/23 04:00 04/17/23 07:00 04/17/23 07:00 04/17/23 07:00 04/17/23 07:00 04/17/23 07:00 04/17/23 07:00 Oxygen Flow Rate (L/min) 2 Oxygen Delivery Method Nasal Cannula Weight: 110.7 kg Body Mass Index (BMI) 40.1 Intake & Output: Intake and Output for Last 24 Hours 04/15/23 04/16/23 04/17/23 23:59 23:59 23:59 Intake Total 19.75 / 19.75 3379.30 / 3384.00 115.15 / 115.15 Output Total 370 / 370 Balance 19.75 / 19.75 3009.30 / 3014.00 115.15 / 115.15 Lab / Micro Data Attestation: I reviewed the patient's lab results. 04/17/23 04:50 04/17/23 04:50 Labs: Laboratory Results - last 24 hr 04/16/23 07:48: POC Glucose 82 04/16/23 11:20: POC Glucose 117 H 04/16/23 14:16: Sodium 132 L, Potassium 5.6 H, Chloride 97 L, Carbon Dioxide 27.0, Anion Gap 8, BUN 39 H, Creatinine 6.19 H, Estim Creat Clear Calc 11.24, Est GFR (MDRD) Af Amer 9 L, Est GFR (MDRD) Non-Af 7 L, BUN/Creatinine Ratio 6.3 L, Glucose 154 H, Calcium 8.6 04/16/23 17:20: POC Glucose 113 H 04/16/23 20:11: POC Glucose 177 H 04/17/23 04:50: WBC 7.0, RBC 3.17 L, Hgb 9.0 L, Hct 30.2 L, MCV 95.3, MCH 28.4, MCHC 29.8 L, RDW Std Deviation 68.1 H, RDW Coeff of Tami 19.8 H, Plt Count 71 L, MPV 9.9, Immature Gran % (Auto) 0.700, Neut % (Auto) 80.9 H, Lymph % (Auto) 12.9 L, [place] % (Auto) 3.6, Eos % (Auto) 1.8, Baso % (Auto) 0.1, Absolute Neuts (auto) 5.7, Absolute Lymphs (auto) 0.91, Nucleated RBC % 0, Platelet Estimate MOD DEC, Anisocytosis RARE, Sodium 134 L, Potassium 5.0, Chloride 99, Carbon Dioxide 28.0, Anion Gap 7, BUN 36 H, Creatinine 5.45 H, Estim Creat Clear Calc 12.75, Est GFR (MDRD) Af Amer 10 L, Est GFR (MDRD) Non-Af 8 L, BUN/Creatinine Ratio 6.6 L, Glucose 114 H, Calcium 9.0 Micro: Microbiology 04/16/23 06:25 Nasal Secretion MRSA (PCR) - Final 04/15/23 21:26 Mucosa - Nose SARS-CoV-2, Influenza & RSV (PCR) - Final Influenzae A Physical Exam Const alert and no apparent distress Constitutional Narrative: Resting comfortably and awakes appropriately to minimal stimulus General Appearance: cooperative; Negative for ill appearing Orientation / Consciousness: confused HEENT normocephalic, head/scalp atraumatic, hearing grossly normal bilaterally and moist oral mucous membranes Eyes PERRL, EOMs intact bilaterally and conjunctivae normal Neck no lymphadenopathy and supple Resp Auscultation: wheezes; Negative for rales or rhonchi Cardio regular rate, regular rhythm, S1 normal heart sound, S2 normal heart sound, no murmurs, no rub and no gallops GI normal to inspection, nondistended, normoactive bowel sounds, soft to palpation, non-tender and non-distended Extremity Extremity Narrative: 2+ bilateral lower extremity edema. Some tenderness to palpation bilateral legs Skin no rashes or lesions noted Skin Narrative: Patient has no evidence of rash at this time. Neuro CN's II-XII intact bilaterally, moves all extremities and no focal motor deficits Psych cooperative and affect normal Charges/Coding Visit Charges Inpatient E&M: 49550 Subs Hosp L3
--- NOTE | 2023-04-17 08:59 | CASEMGMT ---
[facility]charge [facility]. Asked if new precert will be needed. Julieta Marquis, Discharge Planning Asst.
--- NOTE | 2023-04-17 09:19 | CASEMGMT ---
Discharge Planning Precert will be needed for patient to return. JUDITH udpated. Julieta Marquis, Discharge Planning Asst.
[2023-04-17] MEDS: Pramipexole Di-HCl 0.5 MG Tablet PO (09:40)
[2023-04-17] MEDS: Midodrine HCl 5 MG Tablet 10 MG PO ×3 (09:40→17:17)
[2023-04-17] MEDS: Nystatin Powder 15gm Bottle 1 APPLIC TOPICAL ×2 (09:40→19:54)
[2023-04-17] MEDS: Sertraline 50 MG Tablet PO (09:43)
[2023-04-17] MEDS: Oseltamivir Phosphate 30 MG Capsule PO (09:43)
[2023-04-17] MEDS: Vitamin B Comp W-C Capsule 1 CAP PO (09:43)
[2023-04-17] MEDS: Pantoprazole Sodium 40 MG Tablet PO ×2 (09:43→19:55)
[2023-04-17] MEDS: Aspirin E.C. 81 MG Tablet PO (09:43)
[2023-04-17] MEDS: Cholecalciferol (VIT D3) 25 MCG TABLET (1,000 UNITS) PO ×2 (09:43→19:55)
[2023-04-17] MEDS: Ascorbic Acid 500 MG Tablet 1000 MG PO (09:44)
[2023-04-17] MEDS: SEVELAMER CARBONATE 800 MG TABLET 1600 MG PO ×3 (09:44→17:17)
[2023-04-17] MEDS: Tacrolimus 0.5 MG Capsule PO ×2 (09:44→19:55)
[2023-04-17] MEDS: levoFLOXacin IV 750 MG/150 ML BAG 100 MG IV (10:50)
[2023-04-17] MEDS: Insulin Glargine-YFGN 100 UNIT/ML Pen 20 UNIT SC (10:51)
[2023-04-17 11:20] LABS: Bedside Glucose 91 mg/dL (74-106)
--- NOTE | 2023-04-17 12:49 | PCM.PN.REN ---
Subjective Subjective Sitting up in chair. No overnight events. States feeling a little better today. Objective Data Objective Data Vital Signs: Vital Signs Temp Pulse Resp BP Pulse Ox O2 Del Method O2 Flow Rate 97.8 F 67 15 106/46 L 96 Room Air 2 04/17/23 10:00 04/17/23 11:00 04/17/23 11:00 04/17/23 11:00 04/17/23 11:00 04/17/23 11:00 04/17/23 09:00 Oxygen Flow Rate (L/min) 2 Oxygen Delivery Method Room Air Weight: 110.7 kg Body Mass Index (BMI) 40.1 Intake & Output: Intake and Output for Last 24 Hours 04/15/23 04/16/23 04/17/23 23:59 23:59 23:59 Intake Total 19.75 / 19.75 3379.30 / 3384.00 292.78 / 292.78 Output Total 370 / 370 Balance 19.75 / 19.75 3009.30 / 3014.00 292.78 / 292.78 Lab / Micro Data 04/17/23 04:50 04/17/23 04:50 Labs: Laboratory Results - last 24 hr 04/16/23 14:16: Sodium 132 L, Potassium 5.6 H, Chloride 97 L, Carbon Dioxide 27.0, Anion Gap 8, BUN 39 H, Creatinine 6.19 H, Estim Creat Clear Calc 11.24, Est GFR (MDRD) Af Amer 9 L, Est GFR (MDRD) Non-Af 7 L, BUN/Creatinine Ratio 6.3 L, Glucose 154 H, Calcium 8.6 04/16/23 17:20: POC Glucose 113 H 04/16/23 20:11: POC Glucose 177 H 04/17/23 04:50: WBC 7.0, RBC 3.17 L, Hgb 9.0 L, Hct 30.2 L, MCV 95.3, MCH 28.4, MCHC 29.8 L, RDW Std Deviation 68.1 H, RDW Coeff of Tami 19.8 H, Plt Count 71 L, MPV 9.9, Immature Gran % (Auto) 0.700, Neut % (Auto) 80.9 H, Lymph % (Auto) 12.9 L, [place] % (Auto) 3.6, Eos % (Auto) 1.8, Baso % (Auto) 0.1, Absolute Neuts (auto) 5.7, Absolute Lymphs (auto) 0.91, Nucleated RBC % 0, Platelet Estimate MOD DEC, Anisocytosis RARE, Sodium 134 L, Potassium 5.0, Chloride 99, Carbon Dioxide 28.0, Anion Gap 7, BUN 36 H, Creatinine 5.45 H, Estim Creat Clear Calc 12.75, Est GFR (MDRD) Af Amer 10 L, Est GFR (MDRD) Non-Af 8 L, BUN/Creatinine Ratio 6.6 L, Glucose 114 H, Calcium 9.0 04/17/23 09:38: POC Glucose 91 Micro: Microbiology 04/16/23 06:25 Nasal Secretion MRSA (PCR) - Final 04/15/23 21:26 Mucosa - Nose SARS-CoV-2, Influenza & RSV (PCR) - Final Influenzae A Physical Exam Narrative Alert orient x 3, no apparent distress S1, S2, RRR Diminished breath sounds, no rales or rhonchi Abdomen soft, nontender, positive bowel sounds No pitting edema AV fistula positive thrill and bruit Assessment & Plan Assessment/Plan (1) End stage renal disease on dialysis: (2) Sepsis: QUALIFIERS: Sepsis type: sepsis due to unspecified organism Sepsis acute organ dysfunction status: with acute organ dysfunction Severe sepsis acute organ dysfunction type: encephalopathy Severe sepsis shock status: without septic shock Qualified Code(s): A41.9 - Sepsis, unspecified organism; R65.20 - Severe sepsis without septic shock; G93.41 - Metabolic encephalopathy (3) Influenza A: (4) Anemia in chronic kidney disease: PLAN: Plan This is a 67-year-old female with past medical history significant for ESRD on hemodialysis who presented emergency room with complaints of shortness of breath and feeling unwell. Tested positive for influenza A and chest x-ray concerning for pneumonia. Patient noted to be hypotensive in the emergency room, admitted for sepsis, started on Levophed drip. -ESRD on hemodialysis at [facility] on a Saturday, Saturday, , Saturday schedule. There is no acute indication for [employer] today. Patient did undergo hemodialysis yesterday over 2 hours on 2K bath; K+ was 5.6. Prior to undergoing hemodialysis patient did have some peaked T waves. Will plan for next dialysis tomorrow. Recommend renal diet. Typically patient is not significantly hypotensive during dialysis and she is able to tolerate fluid removal with her treatments. -Blood pressures improved, on low-dose Levophed. Patient is also on midodrine. - history of anemia of chronic disease and receives SHAYE and iron with dialysis. Will monitor hemoglobin trends.
[2023-04-17] MEDS: Insulin Lispro 100 UNIT/ML INSULN.PEN SC (13:06)
--- NOTE | 2023-04-17 13:15 | CASEMGMT ---
Discharge Planning Requested that [facility] start precert. Julieta Marquis, Discharge Planning Asst.
[2023-04-17 13:24] LABS: Bedside Glucose 145 mg/dL (74-106)
[2023-04-17 17:33] LABS: Bedside Glucose 105 mg/dL (74-106)
--- NOTE | 2023-04-17 17:41 | PCM.PN.HOSP ---
Reason for Visit Reason for Visit: Diagnoses Sepsis, unspecified organism (04/15/23) Metabolic encephalopathy (04/15/23) Influenza due to other identified influenza virus with other respiratory manifestations (04/15/23) End stage renal disease (04/15/23) Severe sepsis without septic shock (04/15/23) Dependence on renal dialysis (04/15/23) Subjective Subjective Patient was seen and examined today, her white blood cell count remains normal, she is now on Zosyn, vancomycin was stopped by critical care. Objective Data Objective Data Vital Signs: Vital Signs Temp Pulse Resp BP Pulse Ox O2 Del Method O2 Flow Rate 97.5 F L 70 19 H 135/54 H 100 Nasal Cannula 2 04/17/23 16:00 04/17/23 17:30 04/17/23 17:00 04/17/23 17:30 04/17/23 17:00 04/17/23 17:00 04/17/23 17:00 Oxygen Flow Rate (L/min) 2 Oxygen Delivery Method Nasal Cannula Weight: 110.7 kg Body Mass Index (BMI) 40.1 Intake & Output: Intake and Output for Last 24 Hours 04/15/23 04/16/23 04/17/23 23:59 23:59 23:59 Intake Total 19.75 / 19.75 3379.30 / 3384.00 317.58 / 317.58 Output Total 370 / 370 110 / 110 Balance 19.75 / 19.75 3009.30 / 3014.00 207.58 / 207.58 Lab / Micro Data 04/17/23 04:50 04/17/23 04:50 Labs: Laboratory Results - last 24 hr 04/16/23 17:20: POC Glucose 113 H 04/16/23 20:11: POC Glucose 177 H 04/17/23 04:50: WBC 7.0, RBC 3.17 L, Hgb 9.0 L, Hct 30.2 L, MCV 95.3, MCH 28.4, MCHC 29.8 L, RDW Std Deviation 68.1 H, RDW Coeff of Tami 19.8 H, Plt Count 71 L, MPV 9.9, Immature Gran % (Auto) 0.700, Neut % (Auto) 80.9 H, Lymph % (Auto) 12.9 L, [place] % (Auto) 3.6, Eos % (Auto) 1.8, Baso % (Auto) 0.1, Absolute Neuts (auto) 5.7, Absolute Lymphs (auto) 0.91, Nucleated RBC % 0, Platelet Estimate MOD DEC, Anisocytosis RARE, Sodium 134 L, Potassium 5.0, Chloride 99, Carbon Dioxide 28.0, Anion Gap 7, BUN 36 H, Creatinine 5.45 H, Estim Creat Clear Calc 12.75, Est GFR (MDRD) Af Amer 10 L, Est GFR (MDRD) Non-Af 8 L, BUN/Creatinine Ratio 6.6 L, Glucose 114 H, Calcium 9.0 04/17/23 09:38: POC Glucose 91 04/17/23 12:42: POC Glucose 145 H 04/17/23 17:14: POC Glucose 105 Micro: Microbiology 04/17/23 13:10 Urine, Random Legionella Antigen - Final 04/17/23 13:10 Urine, Random Streptococcus pneumoniae Antigen (M - Final 04/16/23 06:25 Nasal Secretion MRSA (PCR) - Final 04/15/23 21:26 Mucosa - Nose SARS-CoV-2, Influenza & RSV (PCR) - Final Influenzae A Physical Exam Narrative alert, oriented x3 and no apparent distress Constitutional Narrative: Patient is morbidly obese, she appears older than her stated age General Appearance: cooperative, well kempt and well developed Orientation / Consciousness: awake, oriented to person, oriented to place and oriented to time HEENT normocephalic, head/scalp atraumatic and moist oral mucous membranes Eyes PERRL, EOMs intact bilaterally and conjunctivae normal Neck supple, no JVD, thyroid normal and no carotid bruits General: trachea midline Resp normal respiratory effort, no retractions, no use of accessory muscles and clear to auscultation bilaterally Auscultation: Negative for rales, rhonchi or wheezes Cardio regular rate, regular rhythm, S1 normal heart sound, S2 normal heart sound, no murmurs, no rub and no gallops GI normal to inspection, nondistended, normoactive bowel sounds, soft to palpation, non-tender and non-distended Extremity no clubbing, cyanosis or edema Skin no rashes or lesions noted General Skin Exam: no breakdown Neuro oriented x3, CN's II-XII intact bilaterally, moves all extremities, no focal motor deficits and no sensory deficits noted Sensorium / Orientation: awake and alert Speech: speech normal Psych affect normal Assessment & Plan Assessment/Plan (1) Influenza A: (2) Sepsis with encephalopathy without septic shock: QUALIFIERS: Sepsis type: sepsis due to unspecified organism Qualified Code(s): A41.9 - Sepsis, unspecified organism; R65.20 - Severe sepsis without septic shock; G93.41 - Metabolic encephalopathy PLAN: Plan 1. Septic shock secondary to influenza A with possible bacterial infection (urinary tract infection, bacterial pneumonia)-patient will remain on her current antibiotic coverage, cultures are pending #2 end-stage renal disease requiring dialysis-nephrology is participating in her care #3 past history of liver transplant-on immunosuppressant drugs, complicates care, medical course, recovery, and prognosis #4 morbid obesity-complicates care, medical course, recovery, and prognosis #5 hypothyroidism-patient is on Synthroid #6 type 2 diabetes-patient's blood sugars will be monitored, sliding scale insulin will be administered as needed #7 chronic diastolic CHF without exacerbation-complicates care, medical course, recovery, and prognosis Total clinical time spent by myself addressing the patient's medical issues, reviewing all of her data, and collaborating with the patient's care team: 25 minutes Charges/Coding Visit Charges Inpatient E&M: 47484 Subs Hosp L1
[2023-04-17] MEDS: Gabapentin 100 MG Capsule 200 MG PO (19:54)
[2023-04-17] MEDS: MELATONIN 10 MG TABLET PO (19:55)
[2023-04-17] MEDS: traZODone 100 MG Tablet 200 MG PO (19:55)
[2023-04-17] MEDS: 0.9% Saline Lock 10 ML Syringe IV (19:56)
[2023-04-18] VITALS (27 sets, daily range): BP systolic 80–211; BP diastolic 38–95; PULSE 63–81; RESP 11–23; TEMP 36.3–36.8; O2SAT 90–100; BMI 40.4; BMI 40.3; BMI 39.9
[2023-04-18] MEDS: HYDROcodone Bitartrate/Apap 5/325 Tablet PO (03:13)
[2023-04-18] MEDS: 0.9% Saline Lock 10 ML Syringe IV (03:13)
[2023-04-18] MEDS: Ondansetron 4 MG/2 ML Vial IV (03:14)
[2023-04-18 03:17] LABS: Absolute Lymphocyte Count 0.51 X10^3/uL (0.83-4.51); Basophil# 0.01 X10^3/uL; Basophil% 0.3 % (0-1); Eosinophil# 0.15 X10^3/uL; Eosinophils% 3.9 % (0-5); Hematocrit 24.3 % (37-47); Hemoglobin 7.3 g/dL (12.0-15.0); Lymphocyte # 0.51 X10^3/ul (0.83-4.51); Lymphocyte % 13.3 % (19-41); Mean Corpuscular Hgb 28.5 pg (27.0-32.0); Mean Corpuscular Volume 94.9 fL (81-99); Mean Platelet Vol. 9.5 fl (6.2-12.0); Monocyte# 0.15 X10^3/uL; Monocyte% 3.9 % (0-10); NRBC Flagged by Analyzer 0 % (0-5); Neutrophil # 2.98 X10^3/uL (2.7-7.7); Neutrophil % 77.8 % (47-70); POSITIVE COUNT YES; POSITIVE DIFFERENTIAL YES; POSITIVE MORPHOLOGY YES; Platelet Count 56 K/mm3 (150-450); RBC Distribution Width CV 19.7 % (11.6-14.6); RBC Distribution Width SD 67.2 fl (35.1-43.9); Red Blood Count 2.56 M/mm3 (4.2-5.4); White Blood Count 3.8 K/mm3 (4.4-11.0)
[2023-04-18 03:19] LABS: Differential Indicated SCAN CRITERIA MET
[2023-04-18 03:23] LABS: Bedside Glucose 70 mg/dL (74-106)
[2023-04-18 03:32] LABS: ALB/GLOB Ratio 0.6 RATIO (0.9-2.4); AST(SGOT) 19 U/L (15-37); Alanine Aminotransfer ALT/SGPT 20 U/L (13-56); Albumin, Serum 2.1 g/dL (3.2-5.0); Alkaline Phosphatase 108 U/L (45-117); Anion Gap 5 (5-15); BUN 45 mg/dL (7-18); Calcium,Total 8.6 mg/dL (8.5-10.1); Chloride 99 mmol/L (98-107); Creatinine, Serum 6.39 mg/dL (0.55-1.02); EST Glomerular Filtration Rate 7 mL/min (>60); Est Glom Filt Rate - Afr Amer 8 mL/min (>60); Estimated Creatinine Clearance 10.87 ml/min; Globulin 3.3 g/dL (2.2-4.2); Glucose 75 mg/dL (74-106); Potassium 5.3 mmol/L (3.5-5.1); Protein, Total 5.4 g/dL (6.4-8.2); Sodium Level 133 mmol/L (136-145)
[2023-04-18 03:39] LABS: Anisocytosis 2+; Differential Comment SCANNED
[2023-04-18] MEDS: Levothyroxine 88 MCG Tablet PO (06:19)
[2023-04-18] MEDS: Sucralfate 1 GM Tablet PO ×2 (06:19→18:30)
[2023-04-18] MEDS: Pramipexole Di-HCl 0.25 MG Tablet PO ×2 (06:19→19:57)
[2023-04-18] MEDS: Menthol/Lanolin/Calamine/Znox 113 GM Tube 1 APPLIC TOPICAL ×3 (06:20→19:56)
--- NOTE | 2023-04-18 06:31 | PCM.PN.INT ---
Assessment & Plan Assessment/Plan (1) Influenza A: (2) Sepsis with encephalopathy without septic shock: QUALIFIERS: Sepsis type: sepsis due to unspecified organism Qualified Code(s): A41.9 - Sepsis, unspecified organism; R65.20 - Severe sepsis without septic shock; G93.41 - Metabolic encephalopathy (3) End stage renal disease on dialysis: PLAN: Plan RECOMMENDATIONS: 1. Complete 5 days of antibiotics 2. Dialysis per nephrology 3. Increase activity as tolerated 4. No transfusions at this time, but monitor daily 5. Continue midodrine at increased doses 6. Possible transfer from intensive care unit later today if tolerates hemodialysis IMPRESSIONS: 1. Septic shock secondary to influenza A with possible secondary bacterial infection Patient has tested positive for influenza A. Endorgan damage demonstrated by altered mental status and lethargy on presentation. Patient is immunosuppressed at baseline, so secondary bacterial infection will be treated. Patient does have bilateral infiltrates on chest x-ray. It is unclear if this is secondary to influenza versus secondary bacterial process. Patient is on Tamiflu. Oxygenation status does appear to be improving and patient is off of pressors. 2. Pancytopenia while on immunosuppression status post liver transplant with [facility] Patient's blood counts appear to be at the baseline. There is no indication for transfusion at this time. Patient is on tacrolimus at baseline. This will be continued. Cannot exclude an element of sequestration secondary to problem #1. Patient is not neutropenic. 3. End-stage renal disease on hemodialysis Unclear if patient's hypotension is secondary to sepsis versus dialysis. Patient was able to tolerate 2 hours of hemodialysis the day before yesterday. Nephrology is following and will dictate dialysis plans. 4. Osteoarthritis/hypertension/hyperlipidemia/hypothyroidism/morbid obesity/diabetes/history of DVT/CAD/psoriasis/RLS Complicates care, management, recovery and prognosis. Antihypertensives have been held secondary to problem #1. Okay to resume baseline medications. Hemoglobin A1c is suggestive of relatively good control of diabetes. Sliding scale insulin likely sufficient given variable p.o. intake. Subjective Subjective Patient did well overnight. Patient has been off of pressors since 4:30 PM yesterday. No acute issues were reported overnight. [facility] Objective Data Objective Data Vital Signs: Vital Signs Temp Pulse Resp BP Pulse Ox O2 Del Method O2 Flow Rate 36.6 C 63 14 100/51 L 97 Nasal Cannula 2 04/18/23 04:00 04/18/23 06:00 04/18/23 06:00 04/18/23 06:00 04/18/23 06:00 04/18/23 06:00 04/18/23 06:00 Oxygen Flow Rate (L/min) 2 Oxygen Delivery Method Nasal Cannula Weight: 112 kg Body Mass Index (BMI) 40.4 Intake & Output: Intake and Output for Last 24 Hours 04/16/23 04/17/23 04/18/23 23:59 23:59 23:59 Intake Total 3379.30 / 3384.00 317.58 / 317.58 0 / 0 Output Total 370 / 370 110 / 110 Balance 3009.30 / 3014.00 207.58 / 207.58 0 / 0 Lab / Micro Data Attestation: I reviewed the patient's lab results. 04/18/23 03:05 04/18/23 03:05 Labs: Laboratory Results - last 24 hr 04/17/23 09:38: POC Glucose 91 04/17/23 12:42: POC Glucose 145 H 04/17/23 17:14: POC Glucose 105 04/17/23 19:53: POC Glucose 70 L 04/18/23 03:05: WBC 3.8 L, RBC 2.56 L, Hgb 7.3 L, Hct 24.3 L, MCV 94.9, MCH 28.5, MCHC 30.0 L, RDW Std Deviation 67.2 H, RDW Coeff of Tami 19.7 H, Plt Count 56 L, MPV 9.5, Immature Gran % (Auto) 0.800, Neut % (Auto) 77.8 H, Lymph % (Auto) 13.3 L, [place] % (Auto) 3.9, Eos % (Auto) 3.9, Baso % (Auto) 0.3, Absolute Neuts (auto) 3.0, Absolute Lymphs (auto) 0.51 L, Nucleated RBC % 0, Differential Comment SCANNED, Anisocytosis 2+, Sodium 133 L, Potassium 5.3 H, Chloride 99, Carbon Dioxide 29.0, Anion Gap 5, BUN 45 H, Creatinine 6.39 H, Estim Creat Clear Calc 10.87, Est GFR (MDRD) Af Amer 8 L, Est GFR (MDRD) Non-Af 7 L, BUN/Creatinine Ratio 7.0 L, Glucose 75, Calcium 8.6, Total Bilirubin 0.60, AST 19, ALT 20, Alkaline Phosphatase 108, Total Protein 5.4 L, Albumin 2.1 L, Globulin 3.3, Albumin/Globulin Ratio 0.6 L Micro: Microbiology 04/17/23 13:10 Urine, Random Legionella Antigen - Final 04/17/23 13:10 Urine, Random Streptococcus pneumoniae Antigen (M - Final 04/16/23 06:25 Nasal Secretion MRSA (PCR) - Final 04/15/23 21:26 Mucosa - Nose SARS-CoV-2, Influenza & RSV (PCR) - Final Influenzae A Physical Exam Const alert and no apparent distress Constitutional Narrative: Resting comfortably and awakes appropriately to minimal stimulus General Appearance: cooperative; Negative for ill appearing Orientation / Consciousness: confused HEENT normocephalic, head/scalp atraumatic, hearing grossly normal bilaterally and moist oral mucous membranes Eyes PERRL, EOMs intact bilaterally and conjunctivae normal Neck no lymphadenopathy and supple Resp Auscultation: wheezes; Negative for rales or rhonchi Cardio regular rate, regular rhythm, S1 normal heart sound, S2 normal heart sound, no murmurs, no rub and no gallops GI normal to inspection, nondistended, normoactive bowel sounds, soft to palpation, non-tender and non-distended Extremity Extremity Narrative: 2+ bilateral lower extremity edema. Some tenderness to palpation bilateral legs Skin no rashes or lesions noted Skin Narrative: Patient has no evidence of rash at this time. Neuro CN's II-XII intact bilaterally, moves all extremities and no focal motor deficits Sensorium / Orientation: awake, alert, oriented to person and oriented to place Speech: speech normal Motor Exam: strength 5/5 throughout Psych cooperative and affect normal Mood & Affect: flat affect Charges/Coding Visit Charges Inpatient E&M: 59934 Subs Hosp L3
[2023-04-18] MEDS: Midodrine HCl 5 MG Tablet 10 MG PO ×3 (08:18→17:18)
[2023-04-18] MEDS: PureFlow B 2K Dialysis Soln 1 BAG 6 BAG PF (09:07)
[2023-04-18] MEDS: 0.9% Normal Saline 1,000 ML IV.SOLN. 1000 ML OPERA.SITE (09:08)
--- NOTE | 2023-04-18 11:00 | PCM.PN.REN ---
Subjective Subjective Resting in bed. Seen and examined while on dialysis this morning. Reports feeling better overall again today. Hopeful to be discharged back to ECF soon. Objective Data Objective Data Vital Signs: Vital Signs Temp Pulse Resp BP Pulse Ox O2 Del Method O2 Flow Rate 98.3 F 68 12 147/56 H 100 Nasal Cannula 2 04/18/23 08:00 04/18/23 10:45 04/18/23 10:45 04/18/23 10:45 04/18/23 10:45 04/18/23 10:45 04/18/23 10:45 Oxygen Flow Rate (L/min) 2 Oxygen Delivery Method Nasal Cannula Weight: 111.584 kg Body Mass Index (BMI) 40.3 Intake & Output: Intake and Output for Last 24 Hours 04/16/23 04/17/23 04/18/23 23:59 23:59 23:59 Intake Total 3379.30 / 3384.00 317.58 / 317.58 0 / 0 Output Total 370 / 370 110 / 110 Balance 3009.30 / 3014.00 207.58 / 207.58 0 / 0 Lab / Micro Data 04/18/23 03:05 04/18/23 03:05 Labs: Laboratory Results - last 24 hr 04/17/23 09:38: POC Glucose 91 04/17/23 12:42: POC Glucose 145 H 04/17/23 17:14: POC Glucose 105 04/17/23 19:53: POC Glucose 70 L 04/18/23 03:05: WBC 3.8 L, RBC 2.56 L, Hgb 7.3 L, Hct 24.3 L, MCV 94.9, MCH 28.5, MCHC 30.0 L, RDW Std Deviation 67.2 H, RDW Coeff of Tami 19.7 H, Plt Count 56 L, MPV 9.5, Immature Gran % (Auto) 0.800, Neut % (Auto) 77.8 H, Lymph % (Auto) 13.3 L, [place] % (Auto) 3.9, Eos % (Auto) 3.9, Baso % (Auto) 0.3, Absolute Neuts (auto) 3.0, Absolute Lymphs (auto) 0.51 L, Nucleated RBC % 0, Differential Comment SCANNED, Anisocytosis 2+, Sodium 133 L, Potassium 5.3 H, Chloride 99, Carbon Dioxide 29.0, Anion Gap 5, BUN 45 H, Creatinine 6.39 H, Estim Creat Clear Calc 10.87, Est GFR (MDRD) Af Amer 8 L, Est GFR (MDRD) Non-Af 7 L, BUN/Creatinine Ratio 7.0 L, Glucose 75, Calcium 8.6, Total Bilirubin 0.60, AST 19, ALT 20, Alkaline Phosphatase 108, Total Protein 5.4 L, Albumin 2.1 L, Globulin 3.3, Albumin/Globulin Ratio 0.6 L Micro: Microbiology 04/15/23 21:20 Blood Culture (Wb) - Right Hand Blood Culture - Preliminary No growth in 48 hours. 04/15/23 21:11 Blood Culture (Wb) - Right Hand Blood Culture - Preliminary No growth in 48 hours. 04/17/23 13:10 Urine, Random Legionella Antigen - Final 04/17/23 13:10 Urine, Random Streptococcus pneumoniae Antigen (M - Final 04/16/23 06:25 Nasal Secretion MRSA (PCR) - Final 04/15/23 21:26 Mucosa - Nose SARS-CoV-2, Influenza & RSV (PCR) - Final Influenzae A Physical Exam Narrative Alert orient x 3, no apparent distress S1, S2, RRR Lung sounds clear anteriorly, diminished breath sounds posterior bases. Abdomen soft, nontender, positive bowel sounds No pitting edema AV fistula positive accessed for hemodialysis Assessment & Plan Assessment/Plan (1) End stage renal disease on dialysis: (2) Sepsis: QUALIFIERS: Sepsis type: sepsis due to unspecified organism Sepsis acute organ dysfunction status: with acute organ dysfunction Severe sepsis acute organ dysfunction type: encephalopathy Severe sepsis shock status: without septic shock Qualified Code(s): A41.9 - Sepsis, unspecified organism; R65.20 - Severe sepsis without septic shock; G93.41 - Metabolic encephalopathy (3) Influenza A: (4) Anemia in chronic kidney disease: PLAN: Plan This is a 67-year-old female with past medical history significant for ESRD on hemodialysis who presented emergency room with complaints of shortness of breath and feeling unwell. Tested positive for influenza A and chest x-ray concerning for pneumonia. Patient noted to be hypotensive in the emergency room, admitted for sepsis, started on Levophed drip. -ESRD on hemodialysis at [facility] on a Saturday, Saturday, , Saturday schedule. Patient undergoing hemodialysis today over 3.5 hrs and attempting around 1-1/2 to 2 L fluid removal as patient/blood pressure tolerates. Potassium is 5.3 today, patient is on 2K bath with dialysis today. Next dialysis will be again tomorrow. Recommend renal diet. Typically patient is not significantly hypotensive during dialysis and she is able to tolerate fluid removal with her treatments. -Blood pressures improved, off Levophed. Patient is also on midodrine. - history of anemia of chronic disease and receives SHAYE and iron with dialysis. Will get SHAYE with dialysis today. Will monitor hemoglobin trends. -Discharge planning in progress, back to ECF.
[2023-04-18] MEDS: Epoetin Alfa epbx 10,000 UNITS/ML 20000 UNIT IV (11:13)
[2023-04-18 12:49] LABS: Bedside Glucose 62 mg/dL (74-106)
[2023-04-18] MEDS: Tacrolimus 0.5 MG Capsule PO ×2 (12:53→19:56)
[2023-04-18] MEDS: SEVELAMER CARBONATE 800 MG TABLET 1600 MG PO ×2 (12:53→17:18)
[2023-04-18] MEDS: Cholecalciferol (VIT D3) 25 MCG TABLET (1,000 UNITS) PO ×2 (12:54→19:57)
[2023-04-18] MEDS: Pantoprazole Sodium 40 MG Tablet PO ×2 (12:54→19:57)
[2023-04-18] MEDS: Vitamin B Comp W-C Capsule 1 CAP PO (12:54)
[2023-04-18] MEDS: Aspirin E.C. 81 MG Tablet PO (12:54)
[2023-04-18] MEDS: Oseltamivir Phosphate 30 MG Capsule PO (12:56)
[2023-04-18] MEDS: Ascorbic Acid 500 MG Tablet 1000 MG PO (12:57)
[2023-04-18] MEDS: Nystatin Powder 15gm Bottle 1 APPLIC TOPICAL ×2 (12:57→19:56)
[2023-04-18] MEDS: Sertraline 50 MG Tablet PO (12:57)
[2023-04-18] MEDS: Pramipexole Di-HCl 0.5 MG Tablet PO (13:00)
--- NOTE | 2023-04-18 16:07 | CASEMGMT ---
Discharge Planning Updates sent via [facility] to [facility]. Julieta Marquis, Discharge Planning Asst.
--- NOTE | 2023-04-18 16:46 | PCM.PN.HOSP ---
Reason for Visit Reason for Visit: Diagnoses Sepsis, unspecified organism (04/15/23) Metabolic encephalopathy (04/15/23) Influenza due to other identified influenza virus with other respiratory manifestations (04/15/23) End stage renal disease (04/15/23) Severe sepsis without septic shock (04/15/23) Dependence on renal dialysis (04/15/23) Subjective Subjective Patient was seen and examined today, she is no longer on any pressor agents, I talked briefly with critical care about her care Objective Data Objective Data Vital Signs: Vital Signs Temp Pulse Resp BP Pulse Ox O2 Del Method O2 Flow Rate 98.3 F 73 12 129/91 H 94 Nasal Cannula 1 04/18/23 08:00 04/18/23 11:30 04/18/23 11:30 04/18/23 11:30 04/18/23 14:18 04/18/23 11:30 04/18/23 14:18 Oxygen Flow Rate (L/min) 1 Oxygen Delivery Method Nasal Cannula Weight: 110.7 kg Body Mass Index (BMI) 39.9 Intake & Output: Intake and Output for Last 24 Hours 04/16/23 04/17/23 04/18/23 23:59 23:59 23:59 Intake Total 3379.30 / 3384.00 317.58 / 317.58 0 / 0 Output Total 370 / 370 110 / 110 1480 / 1480 Balance 3009.30 / 3014.00 207.58 / 207.58 -1480 / -1480 Lab / Micro Data 04/18/23 03:05 04/18/23 03:05 Labs: Laboratory Results - last 24 hr 04/17/23 17:14: POC Glucose 105 04/17/23 19:53: POC Glucose 70 L 04/18/23 03:05: WBC 3.8 L, RBC 2.56 L, Hgb 7.3 L, Hct 24.3 L, MCV 94.9, MCH 28.5, MCHC 30.0 L, RDW Std Deviation 67.2 H, RDW Coeff of Tami 19.7 H, Plt Count 56 L, MPV 9.5, Immature Gran % (Auto) 0.800, Neut % (Auto) 77.8 H, Lymph % (Auto) 13.3 L, [place] % (Auto) 3.9, Eos % (Auto) 3.9, Baso % (Auto) 0.3, Absolute Neuts (auto) 3.0, Absolute Lymphs (auto) 0.51 L, Nucleated RBC % 0, Differential Comment SCANNED, Anisocytosis 2+, Sodium 133 L, Potassium 5.3 H, Chloride 99, Carbon Dioxide 29.0, Anion Gap 5, BUN 45 H, Creatinine 6.39 H, Estim Creat Clear Calc 10.87, Est GFR (MDRD) Af Amer 8 L, Est GFR (MDRD) Non-Af 7 L, BUN/Creatinine Ratio 7.0 L, Glucose 75, Calcium 8.6, Total Bilirubin 0.60, AST 19, ALT 20, Alkaline Phosphatase 108, Total Protein 5.4 L, Albumin 2.1 L, Globulin 3.3, Albumin/Globulin Ratio 0.6 L 04/18/23 12:30: POC Glucose 62 L Micro: Microbiology 04/15/23 21:20 Blood Culture (Wb) - Right Hand Blood Culture - Preliminary No growth in 48 hours. 04/15/23 21:11 Blood Culture (Wb) - Right Hand Blood Culture - Preliminary No growth in 48 hours. 04/17/23 13:10 Urine, Random Legionella Antigen - Final 04/17/23 13:10 Urine, Random Streptococcus pneumoniae Antigen (M - Final 04/16/23 06:25 Nasal Secretion MRSA (PCR) - Final 04/15/23 21:26 Mucosa - Nose SARS-CoV-2, Influenza & RSV (PCR) - Final Influenzae A Physical Exam Narrative alert, oriented x3 and no apparent distress Constitutional Narrative: Patient is morbidly obese, she appears older than her stated age General Appearance: cooperative, well kempt and well developed Orientation / Consciousness: awake, oriented to person, oriented to place and oriented to time HEENT normocephalic, head/scalp atraumatic and moist oral mucous membranes Eyes PERRL, EOMs intact bilaterally and conjunctivae normal Neck supple, no JVD, thyroid normal and no carotid bruits General: trachea midline Resp normal respiratory effort, no retractions, no use of accessory muscles and clear to auscultation bilaterally Auscultation: Negative for rales, rhonchi or wheezes Cardio regular rate, regular rhythm, S1 normal heart sound, S2 normal heart sound, no murmurs, no rub and no gallops GI normal to inspection, nondistended, normoactive bowel sounds, soft to palpation, non-tender and non-distended Extremity no clubbing, cyanosis or edema Skin no rashes or lesions noted General Skin Exam: no breakdown Neuro oriented x3, CN's II-XII intact bilaterally, moves all extremities, no focal motor deficits and no sensory deficits noted Sensorium / Orientation: awake and alert Speech: speech normal Psych affect normal Assessment & Plan Assessment/Plan (1) Sepsis with encephalopathy without septic shock: QUALIFIERS: Sepsis type: sepsis due to unspecified organism Qualified Code(s): A41.9 - Sepsis, unspecified organism; R65.20 - Severe sepsis without septic shock; G93.41 - Metabolic encephalopathy (2) Influenza A: PLAN: Plan 1. Septic shock secondary to influenza A with bacterial infection-patient's urine culture grew out strep and Aerococcus, patient will remain on her current antibiotic, patient's status will be changed to PCU status #2 end-stage renal disease requiring dialysis-nephrology is participating in her care #3 past history of liver transplant-on immunosuppressant drugs, complicates care, medical course, recovery, and prognosis #4 morbid obesity-complicates care, medical course, recovery, and prognosis #5 hypothyroidism-patient is on Synthroid #6 type 2 diabetes-patient's blood sugars will be monitored, sliding scale insulin will be administered as needed #7 chronic diastolic CHF without exacerbation-complicates care, medical course, recovery, and prognosis Total clinical time spent by myself addressing the patient's medical issues, reviewing all of her data, and collaborating with the patient's care team: 25 minutes Charges/Coding Visit Charges Inpatient E&M: 49010 [facility] L1
[2023-04-18] MEDS: Insulin Lispro 100 UNIT/ML INSULN.PEN SC (17:18)
[2023-04-18 17:41] LABS: Bedside Glucose 117 mg/dL (74-106)
[2023-04-18] MEDS: Gabapentin 100 MG Capsule 200 MG PO (19:56)
[2023-04-18] MEDS: MELATONIN 10 MG TABLET PO (19:57)
[2023-04-18] MEDS: traZODone 100 MG Tablet 200 MG PO (19:57)
[2023-04-18] MEDS: Acetaminophen 325 MG Tablet 650 MG PO (19:58)
[2023-04-18 20:31] LABS: Bedside Glucose 105 mg/dL (74-106)
[2023-04-19] VITALS (17 sets, daily range): BP systolic 103–243; BP diastolic 45–97; PULSE 61–81; RESP 12–19; TEMP 36.5–36.9; O2SAT 94–100; BMI 39.8; BMI 40.4; BMI 39.9
[2023-04-19 03:48] LABS: Anion Gap 3 (5-15); BUN 37 mg/dL (7-18); BUN/Creat Ratio 6.7 RATIO (10-20); Calcium,Total 8.4 mg/dL (8.5-10.1); Chloride 102 mmol/L (98-107); Creatinine, Serum 5.49 mg/dL (0.55-1.02); EST Glomerular Filtration Rate 8 mL/min (>60); Est Glom Filt Rate - Afr Amer 10 mL/min (>60); Estimated Creatinine Clearance 12.62 ml/min; Glucose 71 mg/dL (74-106); Potassium 4.8 mmol/L (3.5-5.1); Sodium Level 134 mmol/L (136-145)
[2023-04-19 03:50] LABS: Absolute Lymphocyte Count 0.46 X10^3/uL (0.83-4.51); Absolute Neutrophil Count 1.8 X10^3/uL (2.0-7.7); Basophil# 0.01 X10^3/uL; Basophil% 0.4 % (0-1); Eosinophil# 0.15 X10^3/uL; Eosinophils% 5.7 % (0-5); Hematocrit 26.5 % (37-47); Hemoglobin 7.9 g/dL (12.0-15.0); Lymphocyte # 0.46 X10^3/ul (0.83-4.51); Lymphocyte % 17.4 % (19-41); Mean Corp Hgb Conc 29.8 g/dL (32-36); Mean Corpuscular Hgb 28.4 pg (27.0-32.0); Mean Corpuscular Volume 95.3 fL (81-99); Mean Platelet Vol. 10.8 fl (6.2-12.0); Monocyte# 0.16 X10^3/uL; NRBC Flagged by Analyzer 0 % (0-5); Neutrophil # 1.83 X10^3/uL (2.7-7.7); POSITIVE COUNT YES; POSITIVE DIFFERENTIAL YES; POSITIVE MORPHOLOGY YES; Platelet Count 47 K/mm3 (150-450); RBC Distribution Width CV 19.5 % (11.6-14.6); Red Blood Count 2.78 M/mm3 (4.2-5.4); White Blood Count 2.7 K/mm3 (4.4-11.0)
[2023-04-19 03:54] LABS: Differential Indicated SCAN CRITERIA MET
[2023-04-19 04:32] LABS: Anisocytosis 2+
[2023-04-19 04:33] LABS: Platelet Estimate MKD DEC (ADEQ)
[2023-04-19] MEDS: Pramipexole Di-HCl 0.25 MG Tablet PO ×2 (06:23→14:39)
[2023-04-19] MEDS: Levothyroxine 88 MCG Tablet PO (06:23)
[2023-04-19] MEDS: Sucralfate 1 GM Tablet PO ×2 (06:23→16:23)
[2023-04-19] MEDS: Menthol/Lanolin/Calamine/Znox 113 GM Tube 1 APPLIC TOPICAL (06:23)
--- NOTE | 2023-04-19 06:42 | PCM.PN.INT ---
Assessment & Plan Assessment/Plan (1) Influenza A: (2) Sepsis with encephalopathy without septic shock: QUALIFIERS: Sepsis type: sepsis due to unspecified organism Qualified Code(s): A41.9 - Sepsis, unspecified organism; R65.20 - Severe sepsis without septic shock; G93.41 - Metabolic encephalopathy (3) End stage renal disease on dialysis: PLAN: Plan RECOMMENDATIONS: 1. Complete 5-7 days of antibiotics 2. Dialysis per nephrology 3. Increase activity as tolerated 4. No transfusions at this time, but monitor daily 5. Wean midodrine over the next 10 to 14 days 6. Hemodynamically stable on baseline oxygen. Will sign off from a critical care perspective IMPRESSIONS: 1. Septic shock secondary to influenza A with possible secondary bacterial infection Patient has tested positive for influenza A. Endorgan damage demonstrated by altered mental status and lethargy on presentation. Patient is immunosuppressed at baseline, so a suspected secondary bacterial infection was treated. Patient does have bilateral infiltrates on chest x-ray. It is unclear if this is secondary to influenza versus secondary bacterial process. Patient is on Tamiflu. Oxygenation status does appear to be at baseline and patient is off of pressors while tolerating hemodialysis. Will sign off from a critical care perspective 2. Pancytopenia while on immunosuppression status post liver transplant with [facility] Patient's blood counts appear to be at the baseline. There is no indication for transfusion at this time. Patient is on tacrolimus at baseline. This will be continued. Cannot exclude an element of sequestration secondary to problem #1. Patient is not neutropenic. 3. End-stage renal disease on hemodialysis Unclear if patient's hypotension is secondary to sepsis versus dialysis. Patient was able to tolerate hemodialysis yesterday. Nephrology is following and will dictate dialysis plans. Patient can likely be weaned off of midodrine over the next 10 to 14 days 4. Osteoarthritis/hypertension/hyperlipidemia/hypothyroidism/morbid obesity/diabetes/history of DVT/CAD/psoriasis/RLS Complicates care, management, recovery and prognosis. Antihypertensives have been held secondary to problem #1. Okay to resume baseline medications. Hemoglobin A1c is suggestive of relatively good control of diabetes. Sliding scale insulin likely sufficient given variable p.o. intake. Subjective Subjective Patient did well overnight. Patient did tolerate hemodialysis yesterday with approximately 1.5 L removed. Patient doing well on her baseline 2 L nasal cannula. Patient is not reporting any chest pain. Patient believes her cough is improved. Objective Data Objective Data Vital Signs: Vital Signs Temp Pulse Resp BP Pulse Ox O2 Del Method O2 Flow Rate 36.9 C 68 19 H 134/46 H 99 Nasal Cannula 2 04/19/23 03:30 04/19/23 03:30 04/19/23 03:30 04/19/23 03:30 04/19/23 03:30 04/19/23 03:43 04/19/23 03:43 Oxygen Flow Rate (L/min) 2 Oxygen Delivery Method Nasal Cannula Weight: 110.2 kg Body Mass Index (BMI) 39.8 Intake & Output: Intake and Output for Last 24 Hours 04/17/23 04/18/23 04/19/23 23:59 23:59 23:59 Intake Total 317.58 / 317.58 0 / 0 Output Total 110 / 110 1480 / 1480 Balance 207.58 / 207.58 -1480 / -1480 Lab / Micro Data Attestation: I reviewed the patient's lab results. 04/19/23 03:20 04/19/23 03:20 Labs: Laboratory Results - last 24 hr 04/18/23 12:30: POC Glucose 62 L 04/18/23 17:17: POC Glucose 117 H 04/18/23 20:10: POC Glucose 105 04/19/23 03:20: WBC 2.7 L, RBC 2.78 L, Hgb 7.9 L, Hct 26.5 L, MCV 95.3, MCH 28.4, MCHC 29.8 L, RDW Std Deviation 68.0 H, RDW Coeff of Tami 19.5 H, Plt Count 47 L*, MPV 10.8, Immature Gran % (Auto) 1.500 H, Neut % (Auto) 69.0, Lymph % (Auto) 17.4 L, [place] % (Auto) 6.0, Eos % (Auto) 5.7 H, Baso % (Auto) 0.4, Absolute Neuts (auto) 1.8 L, Absolute Lymphs (auto) 0.46 L, Nucleated RBC % 0, Diff Path Review July, Platelet Estimate MKD DEC, Anisocytosis 2+, Sodium 134 L, Potassium 4.8, Chloride 102, Carbon Dioxide 29.0, Anion Gap 3 L, BUN 37 H, Creatinine 5.49 H, Estim Creat Clear Calc 12.62, Est GFR (MDRD) Af Amer 10 L, Est GFR (MDRD) Non-Af 8 L, BUN/Creatinine Ratio 6.7 L, Glucose 71 L, Calcium 8.4 L Micro: Microbiology 04/15/23 21:20 Blood Culture (Wb) - Right Hand Blood Culture - Preliminary No growth in 48 hours. 04/15/23 21:11 Blood Culture (Wb) - Right Hand Blood Culture - Preliminary No growth in 48 hours. 04/17/23 13:10 Urine, Random Legionella Antigen - Final 04/17/23 13:10 Urine, Random Streptococcus pneumoniae Antigen (M - Final 04/16/23 06:25 Nasal Secretion MRSA (PCR) - Final 04/15/23 21:26 Mucosa - Nose SARS-CoV-2, Influenza & RSV (PCR) - Final Influenzae A Physical Exam Const alert, oriented x3 and no apparent distress Constitutional Narrative: RASS 0 General Appearance: cooperative; Negative for ill appearing HEENT normocephalic, head/scalp atraumatic, hearing grossly normal bilaterally and moist oral mucous membranes Eyes PERRL, EOMs intact bilaterally and conjunctivae normal Neck no lymphadenopathy and supple Resp Effort and Inspection: able to speak in complete sentences Auscultation: diminished lung sounds; Negative for rales, rhonchi or wheezes Cardio regular rate, regular rhythm, S1 normal heart sound, S2 normal heart sound, no murmurs, no rub and no gallops GI normal to inspection, nondistended, normoactive bowel sounds, soft to palpation, non-tender and non-distended Extremity Extremity Narrative: 1+ bilateral lower extremity edema. Some tenderness to palpation bilateral legs Skin no rashes or lesions noted Neuro oriented x3, CN's II-XII intact bilaterally, moves all extremities and no focal motor deficits Psych cooperative and affect normal Charges/Coding Visit Charges Inpatient E&M: 34180 Subs Hosp L2
[2023-04-19] MEDS: 0.9% Normal Saline 1,000 ML IV.SOLN. 1000 ML OPERA.SITE (08:11)
[2023-04-19] MEDS: PureFlow B 2K Dialysis Soln 1 BAG 6 BAG PF (08:11)
[2023-04-19] MEDS: Ascorbic Acid 500 MG Tablet 1000 MG PO (08:45)
[2023-04-19] MEDS: Pantoprazole Sodium 40 MG Tablet PO (08:45)
[2023-04-19] MEDS: SEVELAMER CARBONATE 800 MG TABLET 1600 MG PO ×3 (08:45→16:23)
[2023-04-19] MEDS: Midodrine HCl 5 MG Tablet 10 MG PO ×3 (08:45→16:23)
[2023-04-19] MEDS: Aspirin E.C. 81 MG Tablet PO ×2 (08:45)
[2023-04-19] MEDS: Pramipexole Di-HCl 0.5 MG Tablet PO (08:45)
[2023-04-19] MEDS: Cholecalciferol (VIT D3) 25 MCG TABLET (1,000 UNITS) PO (08:45)
[2023-04-19] MEDS: Oseltamivir Phosphate 30 MG Capsule PO (08:46)
[2023-04-19] MEDS: Tacrolimus 0.5 MG Capsule PO (08:46)
[2023-04-19] MEDS: Sertraline 50 MG Tablet PO (08:46)
[2023-04-19] MEDS: Vitamin B Comp W-C Capsule 1 CAP PO (08:46)
[2023-04-19] MEDS: 0.9% Saline Lock 10 ML Syringe IV (11:32)
[2023-04-19] MEDS: levoFLOXacin IV 750 MG/150 ML BAG 100 MG IV (11:38)
[2023-04-19] MEDS: Nystatin Powder 15gm Bottle 1 APPLIC TOPICAL (11:39)
--- NOTE | 2023-04-19 11:39 | CASEMGMT ---
Discharge Planning [facility] has obtained auth. SW updated. Julieta Marquis, Discharge Planning Asst.
[2023-04-19 12:19] LABS: Pathologist Review Reviewed
[2023-04-19 13:07] LABS: Bedside Glucose 103 mg/dL (74-106)
--- NOTE | 2023-04-19 14:33 | PCM.TXEXTCAR ---
Diet Diet Order/Speech Therapy: 04/16/23 06:21 Diet: Renal - General Food consistency:: Regular Liquid Consistency:: Regular/Thin Is pt able to select menu?: Yes Diet Comments: Easy to chew meats, Distant supervision Routine Orders/Code Status Routine Lab Work: CBC (every other day times 3 starting 04/20/23) and - (Fingerstick blood sugars AC nightly, Humalog subcu per sliding scale: 200-250: 5 units, 251-300: 8 units, 301-350: 12 units) Code Status: Full Code Wound(s) left knee: Wound Type: Abrasion Therapies Weight Bearing: Full weight bearing Physical Therapy: Eval and Treat Occupational Therapy: Eval and Treat Problem/Diagnosis (1) Influenza A: Status: Acute Code(s): J10.1 - Influenza due to other identified influenza virus with other respiratory manifestations (2) Sepsis with encephalopathy without septic shock: Status: Acute Code(s): A41.9 - Sepsis, unspecified organism; R65.20 - Severe sepsis without septic shock; G93.41 - Metabolic encephalopathy (3) End stage renal disease on dialysis: Status: Acute Code(s): N18.6 - End stage renal disease; Z99.2 - Dependence on renal dialysis (4) Osteoarthritis: Status: Acute Code(s): M19.90 - Unspecified osteoarthritis, unspecified site Plan 1. Septic shock secondary to influenza A with bacterial infection-patient's urine culture grew out strep and Aerococcus, patient will remain on her current antibiotic, patient's status will be changed to PCU status #2 end-stage renal disease requiring dialysis-nephrology is participating in her care #3 past history of liver transplant-on immunosuppressant drugs, complicates care, medical course, recovery, and prognosis #4 morbid obesity-complicates care, medical course, recovery, and prognosis #5 hypothyroidism-patient is on Synthroid #6 type 2 diabetes-patient's blood sugars will be monitored, sliding scale insulin will be administered as needed #7 chronic diastolic CHF without exacerbation-complicates care, medical course, recovery, and prognosis #8 Pancytopenia-etiology unclear, patient will need CBCs performed every other day x 3 to monitor platelet count and white blood cell count. Total clinical time spent by myself addressing the patient's medical issues, reviewing all of her data, and collaborating with the patient's care team: 25 minutes Allergies/Procedures Done in Hospital Allergies amlodipine [From Norvasc] Allergy (Severe, Verified 04/15/23 20:55) Hives ampicillin sodium [From Unasyn] Allergy (Severe, Verified 04/15/23 20:55) Hives buspirone HCl [From BuSpar] Allergy (Severe, Verified 04/15/23 20:55) Hives cefadroxil [From Duricef] Allergy (Severe, Verified 04/15/23 20:55) Hives lisinopril Allergy (Severe, Verified 04/15/23 20:55) Swelling naproxen Allergy (Severe, Verified 04/15/23 20:55) Hives niacin [From Niaspan Extended-Release] Allergy (Severe, Verified 04/15/23 20:55) Hives sulbactam sodium [From Unasyn] Allergy (Severe, Verified 04/15/23 20:55) Hives Sulfa (Sulfonamide Antibiotics) Allergy (Severe, Verified 04/15/23 20:55) Hives cephalexin [From Keflex] Allergy (Verified 04/15/23 20:55) Vomiting omeprazole Adverse Reaction (Severe, Verified 04/15/23 20:55) Other stage 3 kidney failure UNABLE TO TAKE DUE TO LIVER TRANSPLANT losartan Adverse Reaction (Verified 04/15/23 20:55) Swelling Procedures: Dialysis Type of Care/Length of Stay Estimated LOS: Convalescent Care Less Than 30 days Type of Care Needed: Skilled Rehab Potential: Good Prognosis: Good Additional Orders/Day of Discharge H&P will serve as current which was dated: 04/15/23 Day of Discharge: 04/19/23 Dietary and Speech Recommendations Dietitian Recommendations/Changes: continue renal-general diet, modifications per BURNING MACHINE OPERATOR as indicated; change ONS to nepro cho steady in hopes of improved acceptance; will monitor wt, labs, PO intake and adjust diet/ONS as indicated. Discharge Plan Admission Admit Date/Time: 04/15/23 23:15 Primary Reason for Your Visit: Sepsis secondary to influenza and possible bacterial pneumonia Attending Provider: Don Duval Primary Care Provider: Velia Archuleta Consulting Providers: Jag Everett; Dena Padilla; Isacc Terrell; Barrett Strickland; Amy Narayan; Selina Marlow; Fabiola Preciado; Amelia Earl; Jorge Eisenberg; Glenn Varela; Gabriela Fry Discharge Orders/Prescriptions Prescriptions: New hydrocodone-acetaminophen 5-325 mg Tablet 1 tab PO Q6H PRN PRN (Reason: Pain Score 6-10) 2 Days Qty: 6 0RF midodrine 5 mg Tablet 10 mg PO TIDCM Qty: 0 0RF nystatin [Nyamyc] 100,000 unit/gram Powder 1 applic topical BID Qty: 0 0RF Protocol: *Topical Application Instructions APPLICATION INSTRUCTIONS: apply to abdominal folds insulin glargine-yfgn 100 unit/mL (3 mL) Insulin Pen 10 unit subcut BID Qty: 0 0RF oseltamivir 30 mg Capsule 30 mg PO DAILY Qty: 1 0RF Rx Instructions: Give 1 dose on 04/20/2023 and discontinue after that levofloxacin 500 mg tablet 500 mg PO UD Qty: 1 0RF Rx Instructions: Give 1 dose on 04/20/2023 then discontinue Continued pantoprazole 40 mg tablet,delayed release (DR/EC) 40 mg PO BID Qty: 60 2RF bisacodyl [Dulcolax (bisacodyl)] 10 mg suppository 10 mg OH DAILY PRN (Reason: constipation) Qty: 30 0RF ascorbic acid (vitamin C) 500 MG tablet,chewable 1,000 mg PO DAILY Patient Comments: supplement cholecalciferol (vitamin D3) 1,000 UNIT tablet 1,000 unit PO BID Patient Comments: bone health ropinirole 1 mg tablet 1 mg PO DAILY tacrolimus [Prograf] 1 MG capsule 0.5 mg PO BID vitamin B complex 1 EACH tablet 1 tablet PO DAILY carvedilol 25 MG tablet 12.5 mg PO BID sevelamer carbonate [Renvela] 800 MG tablet 1,600 mg PO TIDCM ropinirole 2 MG tablet extended release 24 hr 2 mg PO QHS nitroglycerin 0.4 mg Tablet, Sublingual 0.4 mg sublingual Q5M PRN (Reason: Cardiac/Chest Pain) Qty: 30 0RF sertraline [Zoloft] 50 MG tablet 50 mg PO DAILY Patient Comments: depression biotin 1 mg Capsule 1 mg PO BID albuterol sulfate 1 PUFF inhaler 2 puff IH Q4H PRN PRN (Reason: Sob &/Or Wheezing) 30 Days Qty: 8.6 0RF Otezla 30 mg tablet 30 mg PO DAILY acetaminophen 650 mg suppository 650 mg OH Q4H PRN (Reason: fever or pain) acetaminophen 325 mg capsule 650 mg PO Q4H PRN (Reason: fever or pain) aluminum-magnesium hydroxide 225-200 mg/5 mL suspension 30 ml PO Q4H PRN PRN (Reason: GI distress) Enema 19-7 gram/118 mL enema 118 ml OH DAILY PRN (Reason: constipation) melatonin 10 mg tablet 10 mg PO QHS midodrine 10 mg tablet 10 mg PO MOTUTHFR Rx Instructions: afternoon torsemide 60 mg tablet 60 mg PO DAILY magnesium hydroxide [Milk of Magnesia] 400 mg/5 mL suspension 30 ml PO DAILY PRN (Reason: constipation) insulin lispro [Humalog KwikPen Insulin] 100 unit/mL insulin pen 5 unit subcut TIDCM glucagon HCl [Glucagon (HCl) Emergency Kit] 1 mg recon soln 1 mg IM Q20M PRN (Reason: hypoglycemia) Rx Instructions: until target blood sugar attained dextrose [Gluco Burst] 40 % gel 15 g PO Q15M PRN (Reason: hypoglycemia) Rx Instructions: until symptoms of low blood sugar are controlled guaifenesin 100 mg/5 mL liquid 200 mg PO Q4H PRN (Reason: congestion) levothyroxine 88 mcg tablet 88 mcg PO DAILY trazodone 100 mg tablet 200 mg PO QHS gabapentin 100 mg capsule 200 mg PO QHS Patient Comments: TAKE 2 CAPSULES BY MOUTH AT BEDTIME sucralfate [Carafate] 1 gram tablet 1 g PO BID Qty: 30 0RF omega 5-cti-ibx-fish oil [Fish Oil] 1,200 (144-216) mg capsule 1 cap PO DAILY Patient Comments: LAST DOSE 01/26 aspirin [Adult Aspirin Regimen] 81 mg tablet,delayed release (DR/EC) 81 mg PO DAILY Patient Comments: LAST DOSE 01/26 diphenoxylate-atropine [Lomotil] 2.5-0.025 mg tablet 1 tab PO TID PRN (Reason: diarrhea) Qty: 90 2RF Discontinued insulin glargine [Lantus Solostar U-100 Insulin] 100 UNIT/ML insulin pen 30 unit subcut BID Hold Instructions: until follow up with pcp your blood sugars have been low while in hospital midodrine 10 mg tablet 10 mg PO MOWEFR PRN (Reason: SBP <95) Patient Comments: TAKE 1 TABLET BY MOUTH THREE DAYS (TIMES) A WEEK ON MON, WED & FRI BEFORE DIALYSIS hydrocodone-acetaminophen 1 TABLET tablet 1 tab PO Q6H PRN PRN (Reason: Pain) 3 Days Qty: 10 0RF Referrals / Follow Up: Velia Archuleta MD [Primary Care Provider] - Disposition Disposition (needs filled in before D/C Order can be placed): Detention Facility (2) Sepsis with encephalopathy without septic shock Qualifiers: Sepsis type: sepsis due to unspecified organism Qualified Code(s): A41.9 - Sepsis, unspecified organism; R65.20 - Severe sepsis without septic shock; G93.41 - Metabolic encephalopathy
--- NOTE | 2023-04-19 15:33 | DS.PCM_ITS ---
Providers Date of Admission: 04/15/23 Date of Discharge: 04/19/23 Primary Care Physician: Dr. Velia Archuleta MD Consultations 04/15/23 23:29 Consult: Senior Java Architect / Pulmonary Medicine Routine Consulting Provider: Intensivists/Pulmonary Med Reason for Consult: Sepsis, Septic Encephalopathy, Influenza A and LLL PNA. EMERGENT Consult: No Notified: Yes Date Notified: 04/15/23 Time Notified: 23:19 Method of Notification: Text 04/15/23 23:30 Consult: Nephrology Routine Consulting Provider: [facility] Reason for Consult: known dialysis patient EMERGENT Consult: No Notified: Yes Date Notified: 04/15/23 Time Notified: 23:30 Method of Notification: Verbal Reason For Visit: SEPSIS, SEPTIC ENCEPHALOAPHTY, INFLUENZA A Diagnosis Discharge Diagnosis (1) Influenza A: Status: Acute Code(s): J10.1 - Influenza due to other identified influenza virus with other respiratory manifestations (2) Sepsis with encephalopathy without septic shock: Status: Acute Code(s): A41.9 - Sepsis, unspecified organism; R65.20 - Severe sepsis without septic shock; G93.41 - Metabolic encephalopathy Qualifiers: Sepsis type: sepsis due to unspecified organism Qualified Code(s): A41.9 - Sepsis, unspecified organism; R65.20 - Severe sepsis without septic shock; G93.41 - Metabolic encephalopathy (3) End stage renal disease on dialysis: Status: Acute Code(s): N18.6 - End stage renal disease; Z99.2 - Dependence on renal dialysis (4) Osteoarthritis: Status: Acute Code(s): M19.90 - Unspecified osteoarthritis, unspecified site Plan 1. Septic shock secondary to influenza A with bacterial infection-patient's urine culture grew out strep and Aerococcus, patient will remain on her current antibiotic, patient's status will be changed to PCU status #2 end-stage renal disease requiring dialysis-nephrology is participating in her care #3 past history of liver transplant-on immunosuppressant drugs, complicates care, medical course, recovery, and prognosis #4 morbid obesity-complicates care, medical course, recovery, and prognosis #5 hypothyroidism-patient is on Synthroid #6 type 2 diabetes-patient's blood sugars will be monitored, sliding scale insulin will be administered as needed #7 chronic diastolic CHF without exacerbation-complicates care, medical course, recovery, and prognosis #8 Pancytopenia-etiology unclear, patient will need CBCs performed every other day x 3 to monitor platelet count and white blood cell count. Total clinical time spent by myself addressing the patient's medical issues, reviewing all of her data, and collaborating with the patient's care team: 25 minutes Medications at Discharge Home Medications ascorbic acid (vitamin C) 500 mg chewable tablet 1,000 mg PO DAILY supplement 02/20/15 cholecalciferol (vitamin D3) 25 mcg (1,000 unit) tablet 1,000 unit PO BID supplement 02/20/15 tacrolimus 1 mg capsule, immediate-release (Prograf) 0.5 mg PO BID REJECTION 09/10/19 vitamin B complex 1 tablet PO DAILY SUPPLEMENT 09/10/19 carvedilol 25 mg tablet 12.5 mg PO BID heart 02/25/20 ropinirole 1 mg tablet 1 mg PO DAILY restless legs 05/23/20 ropinirole 2 mg tablet,extended release 24 hr 2 mg PO QHS restless legs 06/10/20 sevelamer carbonate 800 mg tablet (Renvela) 1,600 mg PO TIDCM kidney disease 06/10/20 nitroglycerin 0.4 mg sublingual tablet 0.4 mg sublingual Q5M PRN Cardiac/Chest Pain #30 tabs 04/29/21 biotin 1 mg capsule 1 mg PO BID supplement 08/11/21 sertraline 50 mg tablet (Zoloft) 50 mg PO DAILY mood 08/11/21 albuterol sulfate 90 mcg/actuation aerosol inhaler 2 puff IH Q4H PRN PRN Sob &/Or Wheezing 30 days #8.6 grams 10/25/21 diphenoxylate-atropine 2.5 mg-0.025 mg tablet (Lomotil) 1 tab PO TID PRN diarrhea #90 tabs 10/27/21 apremilast 30 mg tablet (Otezla) 30 mg PO DAILY 09/08/22 gabapentin 100 mg capsule 200 mg PO QHS 12/31/22 levothyroxine 88 mcg tablet 88 mcg PO DAILY 12/31/22 sucralfate 1 gram tablet (Carafate) 1 g PO BID #30 tabs 12/31/22 trazodone 100 mg tablet 200 mg PO QHS 12/31/22 pantoprazole 40 mg tablet,delayed release 40 mg PO BID #60 tabs 01/08/23 aspirin 81 mg tablet,delayed release (Adult Aspirin Regimen) 81 mg PO DAILY 01/28/23 omega 7-hgj-pzh-fish oil 1,200 mg (144 mg-216 mg) capsule (Fish Oil) 1 cap PO DAILY SUPPLEMENT 01/28/23 bisacodyl 10 mg rectal suppository (Dulcolax (bisacodyl)) 10 mg IL DAILY PRN co nstipation #30 ea 02/12/23 acetaminophen 325 mg capsule 650 mg PO Q4H PRN fever or pain 04/15/23 acetaminophen 650 mg rectal suppository 650 mg IL Q4H PRN fever or pain 04/15/23 aluminum-magnesium hydroxide 225 mg-200 mg/5 mL oral suspension 30 ml PO Q4H PRN PRN GI distress 04/15/23 dextrose 40 % oral gel (Gluco Burst) 15 g PO Q15M PRN hypoglycemia 04/15/23 glucagon HCl 1 mg solution for injection (Glucagon (HCl) Emergency Kit) 1 mg IM Q20M PRN hypoglycemia 04/15/23 guaifenesin 100 mg/5 mL oral liquid 200 mg PO Q4H PRN congestion 04/15/23 insulin lispro 100 unit/mL subcutaneous pen (Humalog KwikPen (U-100) Insulin) 5 unit subcut TIDCM 04/15/23 magnesium hydroxide 400 mg/5 mL oral suspension (Milk of Magnesia) 30 ml PO DAILY PRN constipation 04/15/23 melatonin 10 mg tablet 10 mg PO QHS 04/15/23 midodrine 10 mg tablet 10 mg PO MOTUTHFR 04/15/23 sodium phosphates 19 gram-7 gram/118 mL enema (Enema) 118 ml IL DAILY PRN constipation 04/15/23 torsemide 60 mg tablet 60 mg PO DAILY 04/15/23 hydrocodone-acetaminophen 5-325mg 5mg-325mg 1 tab PO Q6H PRN PRN Pain Score 6-10 2 days #6 tabs 04/19/23 insulin glargine-yfgn 100 unit/mL (3 mL) subcutaneous pen 10 unit (0.1 mL) subcut BID #0 mL 04/19/23 levofloxacin 500 mg tablet 500 mg PO UD #1 TAB 04/19/23 midodrine 5 mg tablet 10 mg (2 x 5 mg) PO TIDCM #0 tabs 04/19/23 nystatin 100,000 unit/gram topical powder (Nyamyc) 1 applic topical BID #0 grams 04/19/23 oseltamivir 30 mg capsule 30 mg PO DAILY #1 cap 04/19/23 Hospital Course Operations None Procedures Dialysis Summary of Care Provided Minutes Spent on Discharge: 33 Hospital Course: This 67-year-old white female was transported from a local nursing facility where she was a patient due to increased lethargy and shortness of breath. She is a chronic dialysis patient due to end-stage renal disease. Workup in the emergency room showed a white blood cell count to be normal, hemoglobin was 9.4, platelet count was 76,000. Patient's creatinine was elevated at 5.8 and BUN was 30, patient's lactic acid was elevated at 3.4, beta nitric peptide was 190. Chest x-ray showed possible mild vascular congestion with superimposed left lower lobe pneumonia. Patient was admitted to ICU, placed on IV antibiotics and seen by nephrology and critical care, her blood pressure trended downward and she was felt to be in septic shock, pressor agents were administered with good effect. Patient's blood culture did not grow out any bacteria, patient was positive however for influenza A. Patient was seen by PT and OT, pre-CERT was obtained for her to return to her nursing facility for continuing rehab service s. alert, oriented x3 and no apparent distress Constitutional Narrative: Patient is morbidly obese, she appears older than her stated age General Appearance: cooperative, well kempt and well developed Orientation / Consciousness: awake, oriented to person, oriented to place and oriented to time HEENT normocephalic, head/scalp atraumatic and moist oral mucous membranes Eyes PERRL, EOMs intact bilaterally and conjunctivae normal Neck supple, no JVD, thyroid normal and no carotid bruits General: trachea midline Resp normal respiratory effort, no retractions, no use of accessory muscles and clear to auscultation bilaterally Auscultation: Negative for rales, rhonchi or wheezes Cardio regular rate, regular rhythm, S1 normal heart sound, S2 normal heart sound, no murmurs, no rub and no gallops GI normal to inspection, nondistended, normoactive bowel sounds, soft to palpation, non-tender and non-distended Extremity no clubbing, cyanosis or edema Skin no rashes or lesions noted General Skin Exam: no breakdown Neuro oriented x3, CN's II-XII intact bilaterally, moves all extremities, no focal motor deficits and no sensory deficits noted Sensorium / Orientation: awake and alert Speech: speech normal Psych affect normal Patient was transferred to a assisted facility in stable condition on 04/19/2023 On 04/19/2023, patient was seen and examined: Weight / BMI Weight Weight: 110.1 kg Body Mass Index (BMI) 39.9 ABG / Lab / Microbiology Data 04/19/23 03:20 04/19/23 03:20 Laboratory: Laboratory Results - last 24 hr 04/18/23 17:17: POC Glucose 117 H 04/18/23 20:10: POC Glucose 105 04/19/23 03:20: WBC 2.7 L, RBC 2.78 L, Hgb 7.9 L, Hct 26.5 L, MCV 95.3, MCH 28.4, MCHC 29.8 L, RDW Std Deviation 68.0 H, RDW Coeff of Tami 19.5 H, Plt Count 47 L*, MPV 10.8, Immature Gran % (Auto) 1.500 H, Neut % (Auto) 69.0, Lymph % (Auto) 17.4 L, [place] % (Auto) 6.0, Eos % (Auto) 5.7 H, Baso % (Auto) 0.4, Absolute Neuts (auto) 1.8 L, Absolute Lymphs (auto) 0.46 L, Nucleated RBC % 0, Diff Path Review Reviewed, Platelet Estimate MKD DEC, Anisocytosis 2+, Sodium 134 L, Potassium 4.8, Chloride 102, Carbon Dioxide 29.0, Anion Gap 3 L, BUN 37 H , Creatinine 5.49 H, Estim Creat Clear Calc 12.62, Est GFR (MDRD) Af Amer 10 L, Est GFR (MDRD) Non-Af 8 L, BUN/Creatinine Ratio 6.7 L, Glucose 71 L, Calcium 8.4 L 04/19/23 12:49: POC Glucose 103 Microbiology: Microbiology 04/15/23 21:20 Blood Culture (Wb) - Right Hand Blood Culture - Preliminary No growth in 48 hours. 04/15/23 21:11 Blood Culture (Wb) - Right Hand Blood Culture - Preliminary No growth in 48 hours. 04/17/23 13:10 Urine, Random Legionella Antigen - Final 04/17/23 13:10 Urine, Random Streptococcus pneumoniae Antigen (M - Final 04/16/23 06:25 Nasal Secretion MRSA (PCR) - Final 04/15/23 21:26 Mucosa - Nose SARS-CoV-2, Influenza & RSV (PCR) - Final Influenzae A Meaningful Use Info Meaningful Use Diagnoses (Choose all that apply): None applicable Discharge Plan Admission Admit Date/Time: 04/15/23 23:15 Primary Reason for Your Visit: Sepsis secondary to influenza and possible bacterial pneumonia Attending Provider: Don Duval Primary Care Provider: Velia Archuleta Consulting Providers: Jag Everett; Dena Padilla; Isacc Terrell; Barrett Strickland; Amy Narayan; Selina Marlow; Fabiola Preciado; Amelia Earl; Jorge Eisenberg; Glenn Varela; Gabriela Fry Discharge Orders/Prescriptions Prescriptions: New hydrocodone-acetaminophen 5-325 mg Tablet 1 tab PO Q6H PRN PRN (Reason: Pain Score 6-10) 2 Days Qty: 6 0RF midodrine 5 mg Tablet 10 mg PO TIDCM Qty: 0 0RF nystatin [Nyamyc] 100,000 unit/gram Powder 1 applic topical BID Qty: 0 0RF Protocol: *Topical Application Instructions APPLICATION INSTRUCTIONS: apply to abdominal folds insulin glargine-yfgn 100 unit/mL (3 mL) Insulin Pen 10 unit subcut BID Qty: 0 0RF oseltamivir 30 mg Capsule 30 mg PO DAILY Qty: 1 0RF Rx Instructions: Give 1 dose on 04/20/2023 and discontinue after that levofloxacin 500 mg tablet 500 mg PO UD Qty: 1 0RF Rx Instructions: Give 1 dose on 04/20/2023 then discontinue Continued pantoprazole 40 mg tablet,delayed release (DR/EC) 40 mg PO BID Qty: 60 2RF bisacodyl [Dulcolax (bisacodyl)] 10 mg suppository 10 mg IL DAILY PRN (Reason: constipation) Qty: 30 0RF ascorbic acid (vitamin C) 500 MG tablet,chewable 1,000 mg PO DAILY Patient Comments: supplement cholecalciferol (vitamin D3) 1,000 UNIT tablet 1,000 unit PO BID Patient Comments: bone health ropinirole 1 mg tablet 1 mg PO DAILY tacrolimus [Prograf] 1 MG capsule 0.5 mg PO BID vitamin B complex 1 EACH tablet 1 tablet PO DAILY carvedilol 25 MG tablet 12.5 mg PO BID sevelamer carbonate [Renvela] 800 MG tablet 1,600 mg PO TIDCM ropinirole 2 MG tablet extended release 24 hr 2 mg PO QHS nitroglycerin 0.4 mg Tablet, Sublingual 0.4 mg sublingual Q5M PRN (Reason: Cardiac/Chest Pain) Qty: 30 0RF sertraline [Zoloft] 50 MG tablet 50 mg PO DAILY Patient Comments: depression biotin 1 mg Capsule 1 mg PO BID albuterol sulfate 1 PUFF inhaler 2 puff IH Q4H PRN PRN (Reason: Sob &/Or Wheezing) 30 Days Qty: 8.6 0RF Otezla 30 mg tablet 30 mg PO DAILY acetaminophen 650 mg suppository 650 mg IL Q4H PRN (Reason: fever or pain) acetaminophen 325 mg capsule 650 mg PO Q4H PRN (Reason: fever or pain) aluminum-magnesium hydroxide 225-200 mg/5 mL suspension 30 ml PO Q4H PRN PRN (Reason: GI distress) Enema 19-7 gram/118 mL enema 118 ml IL DAILY PRN (Reason: constipation) melatonin 10 mg tablet 10 mg PO QHS midodrine 10 mg tablet 10 mg PO MOTUTHFR Rx Instructions: afternoon torsemide 60 mg tablet 60 mg PO DAILY magnesium hydroxide [Milk of Magnesia] 400 mg/5 mL suspension 30 ml PO DAILY PRN (Reason: constipation) insulin lispro [Humalog KwikPen Insulin] 100 unit/mL insulin pen 5 unit subcut TIDCM glucagon HCl [Glucagon (HCl) Emergency Kit] 1 mg recon soln 1 mg IM Q20M PRN (Reason: hypoglycemia) Rx Instructions: until target blood sugar attained dextrose [Gluco Burst] 40 % gel 15 g PO Q15M PRN (Reason: hypoglycemia) Rx Instructions: until symptoms of low blood sugar are controlled guaifenesin 100 mg/5 mL liquid 200 mg PO Q4H PRN (Reason: congestion) levothyroxine 88 mcg tablet 88 mcg PO DAILY trazodone 100 mg tablet 200 mg PO QHS gabapentin 100 mg capsule 200 mg PO QHS Patient Comments: TAKE 2 CAPSULES BY MOUTH AT BEDTIME sucralfate [Carafate] 1 gram tablet 1 g PO BID Qty: 30 0RF omega 3-iui-lsg-fish oil [Fish Oil] 1,200 (144-216) mg capsule 1 cap PO DAILY Patient Comments: LAST DOSE 01/26 aspirin [Adult Aspirin Regimen] 81 mg tablet,delayed release (DR/EC) 81 mg PO DAILY Patient Comments: LAST DOSE 01/26 diphenoxylate-atropine [Lomotil] 2.5-0.025 mg tablet 1 tab PO TID PRN (Reason: diarrhea) Qty: 90 2RF Discontinued insulin glargine [Lantus Solostar U-100 Insulin] 100 UNIT/ML insulin pen 30 unit subcut BID Hold Instructions: until follow up with pcp your blood sugars have been low while in hospital midodrine 10 mg tablet 10 mg PO MOWEFR PRN (Reason: SBP <95) Patient Comments: TAKE 1 TABLET BY MOUTH THREE DAYS (TIMES) A WEEK ON SAT, SAT & SAT BEFORE DIALYSIS hydrocodone-acetaminophen 1 TABLET tablet 1 tab PO Q6H PRN PRN (Reason: Pain) 3 Days Qty: 10 0RF Referrals / Follow Up: Velia Archuleta MD [Primary Care Provider] - Disposition Disposition (needs filled in before D/C Order can be placed): Detention Facility Charges/Coding Visit Charges Inpatient E&M: 88163 Disch Hosp >30min
--- NOTE | 2023-04-19 16:11 | CASEMGMT ---
Social Work Precert has been obtained for pt to return to [facility]. Physician updated and pt is ready for dc today. DC registrar assistant updated and to complete dc. Disposition: Return to [facility], skilled level of care MIKKI Santos
[2023-04-19 16:40] LABS: Bedside Glucose 117 mg/dL (74-106)
--- NOTE | 2023-04-19 16:43 | CASEMGMT ---
Discharge Planning Discharge orders, signed med list, and transport time sent to [facility] via [facility]. Physicians will transport patient by wheelchair at 7p. Nursing, SW, and patient updated. Julieta Marquis, Discharge Planning Asst.
--- NOTE | 2023-04-19 17:53 | PCM.PN.REN ---
Subjective Subjective Following for ESRD. The patient feels better. She was dialyzed earlier under my supervision. She denies chest pain, shortness of breath, or nausea. Objective Data Objective Data Vital Signs: Vital Signs Temp Pulse Resp BP Pulse Ox O2 Del Method O2 Flow Rate 98.4 F 81 18 147/65 H 97 Room Air 1 04/19/23 14:51 04/19/23 14:51 04/19/23 14:51 04/19/23 14:51 04/19/23 14:51 04/19/23 14:52 04/19/23 11:05 Oxygen Flow Rate (L/min) 1 Oxygen Delivery Method Room Air Weight: 110.1 kg Body Mass Index (BMI) 39.9 Intake & Output: Intake and Output for Last 24 Hours 04/17/23 04/18/23 04/19/23 23:59 23:59 23:59 Intake Total 317.58 / 317.58 0 / 0 350 / 350 Output Total 110 / 110 1480 / 1480 2090 / 2090 Balance 207.58 / 207.58 -1480 / -1480 -1740 / -1740 Lab / Micro Data 04/19/23 03:20 04/19/23 03:20 Labs: Laboratory Results - last 24 hr 04/18/23 20:10: POC Glucose 105 04/19/23 03:20: WBC 2.7 L, RBC 2.78 L, Hgb 7.9 L, Hct 26.5 L, MCV 95.3, MCH 28.4, MCHC 29.8 L, RDW Std Deviation 68.0 H, RDW Coeff of Tami 19.5 H, Plt Count 47 L*, MPV 10.8, Immature Gran % (Auto) 1.500 H, Neut % (Auto) 69.0, Lymph % (Auto) 17.4 L, [place] % (Auto) 6.0, Eos % (Auto) 5.7 H, Baso % (Auto) 0.4, Absolute Neuts (auto) 1.8 L, Absolute Lymphs (auto) 0.46 L, Nucleated RBC % 0, Diff Path Review Reviewed, Platelet Estimate MKD DEC, Anisocytosis 2+, Sodium 134 L, Potassium 4.8, Chloride 102, Carbon Dioxide 29.0, Anion Gap 3 L, BUN 37 H, Creatinine 5.49 H, Estim Creat Clear Calc 12.62, Est GFR (MDRD) Af Amer 10 L, Est GFR (MDRD) Non-Af 8 L, BUN/Creatinine Ratio 6.7 L, Glucose 71 L, Calcium 8.4 L 04/19/23 12:49: POC Glucose 103 04/19/23 16:21: POC Glucose 117 H Micro: Microbiology 04/15/23 21:20 Blood Culture (Wb) - Right Hand Blood Culture - Preliminary No growth in 48 hours. 04/15/23 21:11 Blood Culture (Wb) - Right Hand Blood Culture - Preliminary No growth in 48 hours. 04/17/23 13:10 Urine, Random Legionella Antigen - Final 04/17/23 13:10 Urine, Random Streptococcus pneumoniae Antigen (M - Final 04/16/23 06:25 Nasal Secretion MRSA (PCR) - Final 04/15/23 21:26 Mucosa - Nose SARS-CoV-2, Influenza & RSV (PCR) - Final Influenzae A Physical Exam Narrative Alert orient x 3, no apparent distress S1, S2, RRR Lung sounds clear anteriorly, diminished breath sounds posterior bases. Abdomen soft, nontender, positive bowel sounds No pitting edema AV fistula positive accessed for hemodialysis Assessment & Plan Assessment/Plan (1) End stage renal disease on dialysis: (2) Sepsis: QUALIFIERS: Sepsis type: sepsis due to unspecified organism Sepsis acute organ dysfunction status: with acute organ dysfunction Severe sepsis acute organ dysfunction type: encephalopathy Severe sepsis shock status: without septic shock Qualified Code(s): A41.9 - Sepsis, unspecified organism; R65.20 - Severe sepsis without septic shock; G93.41 - Metabolic encephalopathy (3) Influenza A: (4) Anemia in chronic kidney disease: PLAN: Plan This is a 67-year-old female with past medical history significant for ESRD on hemodialysis who presented emergency room with complaints of shortness of breath and feeling unwell. Tested positive for influenza A and chest x-ray concerning for pneumonia. Patient noted to be hypotensive in the emergency room, admitted for sepsis, started on Levophed drip. -ESRD on hemodialysis at [facility] on a Saturday, Saturday, , Saturday schedule. Patient underwent hemodialysis yesterday and today over 3.5 hrs. More fluid removal today has help with her respiratory status. Potassium is 4.8 today prior to dialysis, patient was dialyzed with 2K bath with dialysis yesterday and today. Next dialysis will be again on 04/22/2023 as outpatient. Typically patient is not significantly hypotensive during dialysis and she is able to tolerate fluid removal with her treatments. -Blood pressures improved, off Levophed. Patient is also on midodrine. - history of anemia of chronic disease and receives SHAYE and iron with dialysis. Will get SHAYE with dialysis as outpatient as well. Will monitor hemoglobin trends. -Plan for discharge today back to [facility]. We will follow-up with patient at [facility].
== END 2023-04-19 20:15 | disposition skilled nursing facility (03) | DRG 871 ==
LOC: ED 22:54 → ICU 23:01
PROVIDERS: Internal Medicine Critical Care Medicine; Internal Medicine Nephrology; Admitting Provider Internal Medicine; Emergency Provider Emergency Medicine; PCP Internal Medicine; Visit Provider Internal Medicine
DX: A41.89 Other specified sepsis (principal); N18.6 End stage renal disease; G93.41 Metabolic encephalopathy; J15.9 Unspecified bacterial pneumonia; D61.818 Other pancytopenia; I13.2 Hypertensive heart and chronic kidney disease with heart failure and with stage 5 chronic kidney disease, or end stage renal disease; J44.0 Chronic obstructive pulmonary disease with (acute) lower respiratory infection; Z68.41 Body mass index [BMI] 40.0-44.9, adult; I50.32 Chronic diastolic (congestive) heart failure; Z94.4 Liver transplant status; J10.81 Influenza due to other identified influenza virus with encephalopathy; D63.1 Anemia in chronic kidney disease; E11.22 Type 2 diabetes mellitus with diabetic chronic kidney disease; E66.01 Morbid (severe) obesity due to excess calories; R65.20 Severe sepsis without septic shock; Z99.2 Dependence on renal dialysis; Z79.4 Long term (current) use of insulin; E03.9 Hypothyroidism, unspecified; F32.A Depression, unspecified; G25.81 Restless legs syndrome; I25.10 Atherosclerotic heart disease of native coronary artery without angina pectoris; E78.5 Hyperlipidemia, unspecified; M19.90 Unspecified osteoarthritis, unspecified site; K75.81 Nonalcoholic steatohepatitis (NASH); K21.9 Gastro-esophageal reflux disease without esophagitis; R29.6 Repeated falls; Z95.5 Presence of coronary angioplasty implant and graft; Z79.621 Long term (current) use of calcineurin inhibitor; Z79.82 Long term (current) use of aspirin; Z79.899 Other long term (current) drug therapy; Z86.718 Personal history of other venous thrombosis and embolism
CPT/HCPCS: 36415; 71045; 80048; 80053; 82140; 82962; 83605; 83735; 83880; 84484; 85025; 85027; 87040; 87449; 87631; 87641; 90937; 92610; 93005; 94762; 97110; 97162; 97166; 97530; 97535; 97802; 97803; 99284; J7030; J7040; J7050; A4216; G0257; J2405; Q5106

== ENCOUNTER → 2023-04-15 | Outpatient (REF) | payer MEDICARE, MEDICAID, SELFPAY ==
--- OUTSIDE RECORDS SUMMARY | 2023-04-15 04:19 | XMS RPT_ITS | CCD ---
Author Name Unknown Address [address] [place] [address] Organization [facility] Care Team Providers Care Zinc Skimmer Name Role Phone Geremias FOFANA, Jame Primary Care Provider Unavailab [facility], Kim Unavailable Vaughn Reeves RN Unavailable Unavailable Dao FOFANA, Jayaoumoukash Unavailable Alicia FOFANA, Vicente Armenta Unavailable Spencer RN, Roxie Unavailable Jame Hunt MD Primary Care Provider Unavailab [facility], Kim Unavailable Vaughn Reeves RN Unavailable Unavailable Dao FOFANA, Jayaprakash Unavailable Alicia FOFANA, Vicente Armenta Unavailable Dasha Colvin RN Unavailable Unavailable Geremias FOFANA, Jame Primary Care Provider Dao FOFANA, Jajoeprakash R Unavailable Paul PICKETT, Sienna Jara Unavailable Unavailhunter Dc MD, Jayaprakash R Unavailable Paul PICKETT, Sienna Jara Unavailable Unavailhunter Palmer RN, Roxie Unavailable Lizeth Bey MD Unavailable GANTA, JAME Primary Care Unavailable GANTA, JAME Attending Unavailable OLDER, SILVA Attending Unavailable GANTA, JAME Primary Care Unavailable OLDER, SILVA Referring Unavailable GANTA, JAME Primary Care Unavailable GANTA, JAME Primary Care Unavailable RAMIN MACK Attending Unavailable GANTA, JAME Primary Care Unavailable GANTA, JAME Primary Care Unavailable GANTA, JAME Referring Unavailable MYLES LOGAN Referring Unavailable GANTA, JAME Primary Care Unavailable GANTA, JAME Primary Care Unavailable GANTA, JAME Primary Care Unavailable OLDER, SILVA Attending Unavailable GANTA, JAME Primary Care Unavailable OLDER, SILVA Attending Unavailable GANTA, JAME Primary Care Unavailable OLDER, SILVA Attending Unavailable GANTA, JAME Primary Care Unavailable GANTA, JAME Primary Care Unavailable MYLES LOGAN Referring Unavailable GANTA, JAME Primary Care Unavailable [...] Referring Unavailable GANTA, JAME Primary Care Unavailable ERIN SHIRLEY Attending Unavailable GANTA, JAME Primary Care Unavailable ERIN SHIRLEY Referring Unavailable GANTA, JAME Primary Care Unavailable DAO, JAYAPRAKASH R Referring Unavailabl e GANTA, JAME Primary Care Unavailable OLDER, SILVA Attending Unavailable GANTA, JAME Primary Care Unavailable OLDER, SILVA Referring Unavailable GANTA, JAME Primary Care Unavailable YESICA PELLETIER Attending Unavailable OLDER, SILVA Referring Unavailable GANTA, JAME Primary Care Unavailable CHARBEL ESPARZA Attending Unavailable ERIN SHIRLEY Referring Unavailable GANTA, JAME Primary Care Unavailable DAO, JAYAPRAKASH R Referring Unavailabl e GANTA, JAME Primary Care Unavailable RUTHIE, ZIAD Referring Unavailable GANTA, JAME Primary Care Unavailable GANTA, JAEM Primary Care Unavailable AMADEO EVERETT Referring Unavailable GANTA, JAME Primary Care Unavailable GANTA, JAME Primary Care Unavailable GANTA, JAME Primary Care Unavailable RAMIN MACK Referring Unavailable GANTA, JAME Primary Care Unavailable OLDER, SILVA Referring Unavailable GANTA, JAME Primary Care Unavailable OLDER, SILVA Referring Unavailable GANTA, JAME Primary Care Unavailable AMADEO EEVRETT Attending Unavailable KEL VICTORIA Referring Unavailable GANTA, JAME Primary Care Unavailable DAO, JAYAPRAKASH R Referring Unavailabl e GANTA, JAME Primary Care Unavailable KEL VICTORIA Referring Unavailable LIZETH BEY Attending Unavailable [facility] Primary Care Unavailable SILVA PLASENCIA Referring Unavailable GANTA, JAME Primary Care Unavailable GANTA, JAME Primary Care Unavailable GANTA, JAME Primary Care Unavailable OLDERSILVA Attending Unavailable [facility] Primary Care Unavailable Allergies Allergy Classification Reported Allergen(s) Allergy Type Date of Onset Reaction(s) Facility (20 sources) Ampicillin / Sulbactam; Translations: [AMPICILLIN-SULB ACTAM] Drug Allergy 8 [facility] (20 sources) busPIRone; Translations: [BUSPIRONE HCL] Drug Allergy 8 [facility] (20 sources) Cefadroxil; Translations: [CEFADROXIL] Drug Allergy 8 [facility] (20 sources) Cephalexin; Translations: [CEPHALEXIN] Drug Allergy 9 [facility] (20 sources) Clindamycin; Translations: [CLINDAMYCIN] Drug Allergy 9 Vomiting [facility] (20 sources) Lisinopril; Translations: [LISINOPRIL] Drug Allergy 5 [facility] (20 sources) Losartan; Translations: [LOSARTAN] Drug Allergy 8 [facility] Work Phone: (20 sources) Naproxen; Translations: [NAPROXEN] Drug Allergy 5 Other: See [facility] (20 sources) Niacin; Translations: [NIACIN] Drug Allergy 9 [facility] (20 sources) Sulfonamides (Antibiotic); Translations: [SULFA (SULFONAMIDE ANTIBIOTICS)] Drug Intolerance 5 [facility] (11 sources) amLODIPine; Translations: [AMLODIPINE] Drug Allergy 8 [facility] (11 sources) busPIRone; Translations: [BUSPIRONE] Drug Allergy 9 [facility] (11 sources) Doxylamine; Translations: [DOXYLAMINE SUCCINATE] Drug Allergy 3 [facility] (11 sources) Omeprazole; Translations: [OMEPRAZOLE] Drug Allergy 8 Other: See Comments [facility] (11 sources) Sulbactam; Translations: [SULBACTAM] Drug Allergy 9 Hives [facility] (11 sources) traMADol; Translations: [TRAMADOL] Drug Allergy 3 Vomiting [facility] Medications Current Medications Medication Drug [...] Use as directed. 1 Each 02/19/2017 Active Immunizations Immunization Date Immunization Notes Care Provider Guido baptiste 01-09-2023 COVID-19 vaccine, ag e 12+ yr, season ([facility]) Silva Plasencia APRN.GAS PUMPING STATION OPERATOR Work Phone: [facility] 12-09-2022 influenza, injectabl e, quadrivalent, preservative free Kel Victoria MD Work Phone: [facility] 10-15-2022 Hepatitis B vaccine (recombinant), CpG jonathan Hunt MD Work Phone: [facility] 08-13-2022 Hepatitis B vaccine (recombinant), Candy Hunt MD Work Phone: [facility] 07-09-2022 Hepatitis B vaccine (recombinant), CpG jonathan Hunt MD Work Phone: [facility] 06-11-2022 Hepatitis B vaccine (recombinant), Candy Hunt MD Work Phone: [facility] 01-15-2022 pneumococcal (PCV20) vaccine, 20 valent (PREVNAR 20) Jame Hunt MD Work Phone: [facility] 09-24-2022 COVID-19 booster vaccine, age 12+ yr, bivalent (PFIZER-BIONTECH) Jame Hunt MD Work Phone: [facility] 11-20-2021 influenza, injectabl e, quadrivalent, contains preservative Jame Hunt MD Work Phone: [facility] 11-20-2021 influenza, injectabl e, quadrivalent, preservative free Jame Hunt MD Work Phone: [facility] 11-20-2021 influenza virus vacc ine, unspecified formulation Jame Hunt MD Work Phone: [facility] 10-20-2021 influenza, seasonal, injectable Jame Hunt MD Work Phone: [facility] 10-11-2021 Hepatitis B vaccine (recombinant), CpG adjuvanted Jame Hunt MD Work Phone: [facility] 09-11-2021 zoster vaccine recombinant Kim [facility] Work Phone: [facility] 08-15-2021 Hepatitis B vaccine (recombinant), CpG adjuvantkit Hunt MD Work Phone: [facility] 07-10-2021 Hepatitis B vaccine (recombinant), CpG jonathan Hunt MD Work Phone: [facility] 06-15-2021 zoster vaccine recombinant Kim [facility] Work Phone: [facility] 06-12-2021 Hepatitis B vaccine (recombinant), CpG adjuvanted Jame Hunt MD Work Phone: [facility] 05-02-2021 COVID-19 vaccine, ag e 12+ yr (PFIZER-BIONTECH - CARNEY TOP) Kim [facility] Work Phone: [facility] Work Phone: 03-13-2021 Hepatitis B vaccine (recombinant), CpG adjuvantkit Hunt MD Work Phone: [facility] 01-09-2021 Hepatitis B vaccine (recombinant), CpG adjuvantkit Hunt MD Work Phone: [facility] 12-30-2020 influenza, seasonal, injectable, preservative free Renetta Mendez RN [facility] 12-12-2020 Hepatitis B vaccine (recombinant), CpG adjuvanted Jame Hunt MD Work Phone: [facility] 11-14-2020 Hepatitis B vaccine (recombinant), CpG adjuvanted Jame Hunt MD Work Phone: [facility] 11-14-2020 pneumococcal polysaccharide vaccine, 23 valent Jame Hunt MD Work Phone: [facility] 11-07-2020 hepatitis B vaccine, adult dosage Jame Hunt MD Work Phone: [facility] Work Phone: 11-07-2020 pneumococcal polysaccharide vaccine, 23 valent Jame Hunt MD Work Phone: [facility] Work Phone: 11-01-2020 influenza, injectabl e, quadrivalent, contains preservative Jame Hunt MD Work Phone: [facility] Work Phone: 11-01-2020 Seasonal, quadrivale nt, recombinant, injectable influenza vaccine, preservative free Renetta Mendez RN [facility] 10-31-2020 influenza virus vacc ine, unspecified formulation Renetta Mendez RN [facility] 06-02-2020 COVID-19 original vaccine, age 12+ yr, monovalent (PFIZER-BIONTECH - PURPLE TOP) Renetta Mendez RN [facility] 06-01-2020 COVID-19 vaccine, ag e 12+ yr (PFIZER-BIONTECH - PURPLE TOP) Jame Hunt MD Work Phone: [facility] 12-31-2019 influenza, injectabl e, quadrivalent, preservative free Jame Hunt MD Work Phone: [facility] 12-31-2018 influenza, injectabl e, quadrivalent, contains preservative Jame Hunt MD Work Phone: [facility] 12-31-2018 tetanus and diphther ia toxoids, adsorbed, preservative free, for adult use (5 Lf of tetanus toxoid and 2 Lf of diphtheria toxoid) Jame Hunt MD Work Phone: [facility] 12-16-2017 influenza, seasonal, injectable, preservative free Renetta Mendez [facility] 12-08-2017 influenza virus vacc ine, unspecified formulation Renetta Mendez [facility] 12-07-2016 pneumococcal conjuga te vaccine, 13 valent Jame Hunt MD Work Phone: [facility] Work Phone: 11-30-2016 influenza, seasonal, injectable Jame Hunt MD Work Phone: [facility] 05-28-2016 influenza, seasonal, injectable, preservative free Renetta Mendez [facility] 05-28-2016 pneumococcal polysaccharide vaccine, 23 valent Renetta Mendez [facility] 01-02-2016 influenza, seasonal, injectable Jame Hunt MD Work Phone: [facility] 01-02-2016 influenza, seasonal, injectable, preservative free Renetta Mendez [facility] 12-24-2014 influenza, injectabl e, quadrivalent, preservative free Jame Hunt MD Work Phone: [facility] 12-21-2014 influenza, seasonal, injectable, preservative free Renetta Mendez [facility] 12-03-2013 influenza, seasonal, injectable, preservative free Renetta Mendez [facility] 12-03-2013 pneumococcal polysaccharide vaccine, 23 valent Jame Hunt MD Work Phone: [facility] 12-03-2013 pneumococcal vaccine , unspecified formulation Renetta Mendez [facility] 12-08-2008 influenza virus vacc ine, unspecified formulation Jame Hunt MD Work Phone: [facility] 11-24-2008 pneumococcal polysaccharide vaccine, 23 valent Kim [facility] Work Phone: [facility] Work Phone: 05-04-2008 haemophilus influenz ae type b vaccine, PRP-T conjugate Jame Hunt MD Work Phone: [facility] 05-04-2008 meningococcal polysaccharide vaccine (MPSV4) Jame Hunt MD Work Phone: [facility] Work Phone: 05-04-2008 pneumococcal polysaccharide vaccine, 23 valent Jame Hunt MD Work Phone: [facility] Work Phone: 02-19-2008 hepatitis A and hepatitis B vaccine Jame Hunt MD Work Phone: [facility] 02-19-2008 tetanus toxoid, redu rios diphtheria toxoid, and acellular pertussis vaccine, adsorbed Jame Hunt MD Work Phone: [facility] 12-11-2007 influenza virus vacc ine, unspecified formulation Jame Hunt MD Work Phone: [facility] 12-31-2006 influenza virus vacc ine, unspecified formulation Jame Hunt MD Work Phone: [facility] Payers Date Payer Category Payer Medicaid [facility] MEDICAID [id number] 2021-Present [phone] [address] [place] [address] Medicaid [id number] 2021 Medicaid [id number] 2021 Medicaid [id number] 2021 Medicaid [id number] 2021 Medicaid [id number] 2021 Medicare HUMANA MEDICARE HUMANA GOLD PLUS [id number] 2021-Present [phone] [address] [address] [place] [address] [facility] [id number] 2021 Medicare HUMANA MEDICARE HUMANA GOLD PLUS [id number] 2021-Present [phone] [address] [address] [place] [address] [facility] [id number] 2021 Private Health Insurance [id number] Social History Date Type Detail Facility Start: 10-04-2016 End: 02-05-2022 Tobacco smoking status NHIS Never smoked tobacco [facility] Start: 10-04-2016 End: 02-05-2022 Tobacco use and exposure Smokeless tobacco non-user [facility] Start: 04-05-2021 End: 01-10-2023 Alcohol intake Current non-drinker of alcohol (finding) [facility] Start: 05-22-2021 End: 01-22-2022 History SDOH Alcohol Frequency 1 [facility] Start: 05-22-2021 End: 01-22-2022 History SDOH Alcohol Std Drinks 98 [facility] Start: 05-22-2021 End: 01-22-2022 History SDOH Social Connections Phone 5 [facility] Start: 05-22-2021 End: 01-22-2022 History SDOH Social Connections Get Together 2 [facility] Start: 05-22-2021 End: 01-22-2022 History SDOH Social Connections Living 3 [facility] Start: 05-22-2021 History SDOH Financial 4 [facility] Start: 01-11-2019 Education 12 [facility] Start: 09-14-2016 End: 02-05-2022 Tobacco Comment Parents both smoked in childhood home. No household ETS since. [facility] Start: 1955 Sex Assigned At Female [facility] Work Phone: Start: 05-13-2021 End: 02-05-2022 Exposure to SARS-CoV-2 (event) Not sure [facility] Work Phone: Start: 08-15-2021 End: 08-25-2021 Exposure to SARS-CoV-2 (event) Unable to assess [facility] History of tobacco use Passive smoker [facility] Start: 01-22-2022 History SDOH Alcohol Std Drinks 0 [facility] Start: 01-22-2022 End: 07-12-2022 History of Social function [facility] Start: 01-22-2022 End: 07-12-2022 Social connection and isolation panel [facility] Do you belong to any clubs or organizations such as yarsanism groups, unions, fraternal or athletic groups, or school groups? No [facility] Are you now , , , , never or living with a partner? [facility] How often to you hav e a drink containing alcohol? Never [facility] How many standard dr inks containing alcohol do you have on a typical day? Patient does not drink [facility] How hard is it for y ou to pay for the very basics like food, housing, medical care, and heating Somewhat hard [facility] Do you feel stress - tense, restless, nervous, or anxious, or unable to sleep at night because your mind is troubled all the time - these days [OSQ] To some extent [facility] (I/We) worried wheth er (my/our) food would run out before (I/we) got money to buy more. Sometimes true [facility] The food that (I/we) bought just didn't last, and (I/we) didn't have money to get more. Never true [facility] Start: 09-05-2016 Gender identity Identifies as female gender (finding) [facility] Work Phone: Start: 09-05-2016 Sexual orientation Heterosexual (finding) [facility] Work Phone: Medical Equipment Procedure [...] WEIGHT - 109.5 - 02/11/23 scanned into [employer]. Haritha Chan documented in this encounter [facility] 02-11-2023 Miscellaneous Notes Called patient [...] 2023 1:45 PM documented in this encounter [facility] 01-22-2023 Miscellaneous Notes REMEDIOS 01/09/23 [...] sent. Aleyda Cary documented in this encounter [facility] 01-17-2023 Miscellaneous Notes Spoke with patient who indicated she was cleared by Dr. Bey at [facility] for her EGD. Patient indicated she does not need appointment with Dr. Vargas and wishes to cancel at this time. Will get Dr. Bey to complete EGD clearance form. Appointment cancelled per patient's request. Dasha Hu RN Patient states that she had an appointment at [facility] with Dr Lerner for EGD but [...] with Dr. Vargas at this time. Toma Coleman, RN Patient called in stating she was having an EGD with Dr. Vargas on 01/23/2023. She was asking if she needed to stop taking her aspirin prior to procedure. I advised patient that she has an office visit scheduled, not a procedure. Patient is confused. Advised patient that maybe her petroleum refining equipment operator is sending her for cardiology clearance before the procedure. Patient states that she just had a cardiology clearance on 01/10/[address] Bey for a liver transplant. Patient is not sure why she needs to be seen by Dr. Vargas now. Please contact patient back at [phone]. documented in this encounter [facility] 01-17-2023 History of Present illness Narrative [facility] Telephonic Outreach Provider Action/FYI Contacted for: Routine [...] daily weight at home? No Based on field court researcher, the following disposition is advised: No symptoms or symptoms present, not severe. Routed to: No Action Needed NOELLE Education Provided this Outreach: No Sienna Miller RN January 17, 2023 10:50 AM documented in this encounter [facility] 01-14-2023 Miscellaneous Notes Patient has [...] Nell Lemons LPN. documented in this encounter [facility] 01-10-2023 Miscellaneous Notes Clearance form received and scanned into chart. Patient has appt with Dr. Vargas on 01/23 at 2:20. Lucrecia Villatoro documented in this encounter [facility] 01-10-2023 Note [facility] 01-10-2023 History of Present illness Narrative Images from the original note were not included. Heart [facility] V[facility] Department of Cardiovascular Medicine SECTION OF CLINICAL CARDIOLOGY OUTPATIENT VISIT DATE January 10, 2023 OUTPATIENT VISIT TYPE CONSULTATION PRIMARY CARE PHYSICIAN: Jame Hunt [address] [place] [address] REFERRING PHYSICIAN Kel Victoria [address] [facility] [address] CHIEF COMPLAINT: Preop Evaluation HISTORY OF PRESENT [...] CKD (chronic kidney disease) Dialysis M/W/F [facility] COPD (chronic obstructive pulmonary disease) (HCC) Diabetes mellitus without mention of complication Diabetic polyneuropathy (HCC) 02/04/2017 Disorder of thyroid DVT (deep venous thrombosis) (HCC) Esophageal reflux Hammer toes, bilateral 11/30/2016 History of transfusion Hypertension Incisional hernia 12/30/2008 Liver replaced by transplant ([facility]) 2008 - Cirrhosis s/p OLT 2008 - [...] FLX DX W/COLLJ SPEC WHEN PFRMD 11/29/2011 [facility] Main /Dr. Anderson COLONOSCOPY FLX DX W/COLLJ SPEC WHEN PFRMD 07/2011 Janneth COLONOSCOPY FLX DX W/COLLJ SPEC WHEN PFRMD 09/[address] [facility] ESOPHAGOGASTRODUODENOSCOPY TRANSORAL DIAGNOSTIC 12/2009 [facility] Janneth ESOPHAGOGASTRODUODENOSCOPY TRANSORAL DIAGNOSTIC 12/2010 [facility] Janneth FISTULA HERNIA REPAIR HX 12/2008 [...] [place] Stroke Father Ischemic Heart Disease Father [place] age 70s Diabetes Mother age 76 other [...] mouth once daily. Blood-Glucose Meter,Continuous (DEXCOM G7 RUBBER ENGRAVER) misc Use to check blood sugar at [...] by others. CONTACT INFORMATION: Lizeth Bey MD, [facility] Section of Clinical Cardiology [facility] Department of Cardiovascular Medicine Heart and Vascular [facility] Desk [id number] [address] Office - [phone] extension [phone] Office Appointments: [phone] extension [phone] Voice recognition software was used in the creation of this document. There may be unintended errors in spelling, grammar, syntax or punctuation present. documented in this encounter [facility] 01-10-2023 Note [facility] 01-10-2023 History of Present illness Narrative NAME: Christina Guerrier CLINIC NO: [id number] REFERRING PHYSICIAN: Kel Victoria PRESENTING COMPLAINT: Pre-kidney [...] 2023 5:39 PM documented in this encounter [facility] 01-09-2023 Note [facility] 01-09-2023 History of Present illness Narrative CC: Patient presents with: ED Follow-up HPI Christina Guerrier is a 67 year old female who presents today for ER follow-up. Facility: [facility] Er on both 12/26 and 12/31 for abdominal pain and vomiting. Was last seen in this office 12/27 for first ER visit. Had been having difficulty regulating blood sugars with her inability to eat and her insulin. Is on a lower dose of insulin at this time and denies any low blood sugars. Has an EGD in a few weeks at [facility] with Dr. Lerner as there [...] she is requesting a refill on her [place] as it is flaring up and with [...] alcohol CKD (chronic kidney disease) Dialysis M/W/F [facility] COPD (chronic obstructive pulmonary disease) (HCC) Diabetes [...] FLX DX W/COLLJ SPEC WHEN PFRMD 11/29/2011 [facility] Main /Dr. Anderson COLONOSCOPY FLX DX W/COLLJ SPEC WHEN PFRMD 07/2011 Janneth COLONOSCOPY FLX DX W/COLLJ SPEC WHEN PFRMD 09/[address] [facility] ESOPHAGOGASTRODUODENOSCOPY TRANSORAL DIAGNOSTIC 12/2009 [facility] Janneth ESOPHAGOGASTRODUODENOSCOPY TRANSORAL DIAGNOSTIC 12/2010 [facility] Janneth FISTULA HERNIA REPAIR HX 12/2008 [...] mg by mouth. Taking Mon, Wed and Fri before dialysis insulin glargine (LANTUS U-100 INSULIN) [...] mouth once daily. Blood-Glucose Meter,Continuous (DEXCOM G7 RUBBER ENGRAVER) [facility] Use to check blood sugar at least [...] CA Stroke Father Ischemic Heart Disease Father [place] age 70s Diabetes Mother age 76 other [...] Aged Out DATA REVIEWED: Outside chart from [facility] reviewed. ASSESSMENT/PLAN: 1. Epigastric pain [...] Silva Plasencia APRN.NATHALY documented in this encounter [facility] 01-09-2023 Miscellaneous Notes Labs faxed to Dr Lerner office. Labs are in process Pt needs lab results that were drawn on 01/08/2023 to be faxed to Dr. Lerner/Dr. Maurer Phone # [phone] documented in this encounter [facility] 01-08-2023 Miscellaneous Notes Samanta with [facility] calls to request most recent labs be faxed to: [phone]. Results faxed as requested. Monica Carter LPN documented in this encounter [facility] 01-04-2023 Note [facility] 01-04-2023 History of Present illness Narrative Images from the original note were not included. Primary Care Pharmacy Visit CC (Reason for Consult): (E11.00, Z79.4) Type 2 diabetes mellitus with hyperosmolarity 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, with long-term current use of insulin ([facility]) Goal(s): A1c < 8% Last Collaborating Physician Visit: 12/27/22 Christina Guerrier is a 67 year old female presenting for follow up visit telephone call. Patient consents to pharmacy collaborative practice agreement. . At visit with GAS PUMPING STATION OPERATOR on 12/26 the following changes were made: instructed Decrease lantus to half dose if not consistently eating. Do NOT take the 25mg novolog if not eating and go by sliding scale only. At last visit with GAS PUMPING STATION OPERATOR on 12/27, was instructed that she may [...] finish the cans) Exercise: limited GLYCEMIC CONTROL: [employer] CLARITY SHARE CODE - [id number] Past medical history reviewed. MEDICATIONS: Adherence: denies [...] 270 tablet 3 Blood-Glucose Meter,Continuous (DEXCOM G7 RUBBER ENGRAVER) [facility] Use to check blood sugar at least [...] coma, with long-term current use of insulin ([facility]) - ICD9: 250.20, V58.67, ICD10: E11.00, Z79.4 [...] was 20 minutes. documented in this encounter [facility] 12-27-2022 Note [facility] 12-27-2022 History of Present illness Narrative CC: Patient presents with: Recheck: ER follow up, abdominal pain HPI Christina Guerrier is a 67 year old female who presents today for ER follow-up. 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 [facility] ESOPHAGOGASTRODUODENOSCOPY TRANSORAL DIAGNOSTIC 12/2009 [facility] ESOPHAGOGASTRODUODENOSCOPY TRANSORAL DIAGNOSTIC 12/2010 [facility] Janneth FISTULA HERNIA REPAIR HX 12/2008 [...] mouth once daily. Blood-Glucose Meter,Continuous (DEXCOM G7 RUBBER ENGRAVER) [facility] Use to check blood sugar at least [...] CA Stroke Father Ischemic Heart Disease Father [place] age 70s Diabetes Mother age 76 other [...] - 1-dose 60+ series) Never done Covid-19 Vaccine( season) due on 11/02/2022 Pap Testing due [...] Aged Out DATA REVIEWED: Outside chart from [facility] reviewed. ASSESSMENT/PLAN: 1. Nausea - [...] Silva Plasencia APRN.CNP documented in this encounter [facility] 12-26-2022 Note [facility] 12-24-2022 Miscellaneous Notes Letter sent to patient caylat per her request. Please print and process Patient calls to request a letter for [facility]. Patient reports that she receives gas vouchers to get to doctor appointments here and at main campus. The letter needs to state that patient is an established patient with the [facility] and needs to be addressed to Poly Shafer at [facility]. Patient requests it be uploaded to when completed. Janelle Crocker RN documented in this encounter [facility] 12-20-2022 Note [facility] 12-20-2022 History of Present illness Narrative [facility] Telephonic Outreach Provider Action/FYI Contacted for: Routine [...] daily weight at home? No Based on field court researcher, the following disposition is advised: No symptoms or symptoms present, not severe. Routed to: No Action Needed NOELLE Education Provided this Outreach: No Sienna Miller RN December 20, 2022 1:27 PM documented in this encounter [facility] 12-03-2022 Note [facility] 11-26-2022 Note [facility] 11-26-2022 Note [facility] 11-26-2022 History of Present illness Narrative [...] Incisional hernia 12/30/2008 Liver replaced by transplant ([facility]) 2008 - Cirrhosis s/p OLT 2008 - [...] HX Left 08/03/2020 CHOLECYSTECTOMY 2009 COLONOSCOPY 10/12/2014 [place] COLONOSCOPY 09/12/2017 Janneth. No colitis. Poor rectal sphincter tone. Referred to Oriana Newberry. COLONOSCOPY FLX DX W/COLLJ SPEC WHEN PFRMD 11/29/2011 [facility] /Dr. Anderson COLONOSCOPY FLX DX W/COLLJ SPEC WHEN PFRMD 07/2011 Jann[facility] COLONOSCOPY FLX DX W/COLLJ SPEC WHEN PFRMD 09/[address] [facility] ESOPHAGOGASTRODUODENOSCOPY TRANSORAL DIAGNOSTIC 12/2009 [facility] Janneth ESOPHAGOGASTRODUODENOSCOPY TRANSORAL DIAGNOSTIC 12/2010 [facility] Janneth FISTULA HERNIA REPAIR HX 12/2008 [...] Taking Sat, Sat and Sat before dialysis insulin glargine [...] mouth once daily. Blood-Glucose Meter,Continuous (DEXCOM G7 RUBBER ENGRAVER) [facility] Use to check blood sugar at least [...] CA Stroke Father Ischemic Heart Disease Father [place] age 70s Diabetes Mother age 76 other [...] therapy advised. Pain control addressed (already has [place] rx from hip pain appt) Will be [...] Ramin Mack PA-C documented in this encounter [facility] 11-22-2022 Note [facility] 11-22-2022 History of Present illness Narrative [...] daily weight at home? No Based on field court researcher, the following disposition is advised: No symptoms or symptoms present, not severe. Routed to: No Action Needed NOELLE Education Provided this Outreach: No Sienna Miller RN November 22, 2022 10:32 AM documented in this encounter [facility] 11-20-2022 Miscellaneous Notes REMEDIOS 11/07/22 [...] 150 mg/dL) Please review and advise. Litzy Cary documented in this encounter [facility] 11-07-2022 Note [facility] 11-07-2022 Note [facility] 11-07-2022 Note [facility] 11-07-2022 History of Present illness Narrative [...] night and keeping her awake Treated with [place], with minor relief of symptoms. REVIEW OF [...] W/COLLJ SPEC WHEN PFRMD 09/[address] [facility] ESOPHAGOGASTRODUODENOSCOPY TRANSORAL DIAGNOSTIC 12/2009 [facility] Janneth ESOPHAGOGASTRODUODENOSCOPY TRANSORAL DIAGNOSTIC 12/2010 [facility] Janneth FISTULA HERNIA REPAIR HX 12/2008 [...] mg by mouth. Taking Mon, Wed and Fri before dialysis HYDROcodone-acetaminophen (NORCO) 5-325 mg per [...] mouth once daily. Blood-Glucose Meter,Continuous (DEXCOM G7 RUBBER ENGRAVER) misc Use to check blood sugar at [...] each sensor change. Blood-Glucose Meter,Continuous (DEXCOM G6 RUBBER ENGRAVER) misc Use to check blood sugar at [...] CA Stroke Father Ischemic Heart Disease Father [place] age 70s Diabetes Mother age 76 other [...] activity was identified. 11/07/2022 by Erin Plasencia APRN.CNP Follow-up and further recommendations pending results of [...] Patient agreeable to treatment plan. Erin Plasencia APRN.CNP documented in this encounter [facility] 11-07-2022 History of Present illness Narrative Radiology Service Progress Note PATIENT NAME: Christina Guerreir DATE OF SERVICE: November 07, 2022 TIME: [...] 2022 11:14 AM documented in this encounter [facility] 10-28-2022 Miscellaneous Notes Pt was notified of the results. Pt verbalized understanding. Nasra Becerril MA Please advise patient that test results came back negative. Rash is not shingles. Should follow-up if signs and symptoms seem to be getting worse not better. documented in this encounter [facility] 10-27-2022 Note [facility] 10-27-2022 History of Present illness Narrative [...] history is provided by the patient. No foreign language instructor was used. Rash Review of [...] CKD (chronic kidney disease) Dialysis M/W/F [facility] COPD (chronic obstructive pulmonary disease) (HCC) Diabetes [...] W/COLLJ SPEC WHEN PFRMD 09/[address] [facility] ESOPHAGOGASTRODUODENOSCOPY TRANSORAL DIAGNOSTIC 12/2009 [facility] Janneth ESOPHAGOGASTRODUODENOSCOPY TRANSORAL DIAGNOSTIC 12/2010 [facility] Janneth FISTULA HERNIA REPAIR HX 12/2008 [...] Syringe-Needle U-100 0.5 mL 31 gauge x 07/17 Use to inject insulin 5 times daily [...] mouth once daily. Blood-Glucose Meter,Continuous (DEXCOM G7 RUBBER ENGRAVER) [facility] Use to check blood sugar at least [...] each sensor change. Blood-Glucose Meter,Continuous (DEXCOM G6 RUBBER ENGRAVER) misc Use to check blood sugar at least four (4) times daily. Blood-Glucose Sensor (DEXCOM G6 SENSOR) brady Apply new sensor every ten (10) days to abdomen. FAMILY HISTORY Problem Relation Age of Onset Cancer Father age 73 lung CA Stroke Father Ischemic Heart Disease Father [place] age 70s Diabetes Mother age 76 other [...] okay with this care plan. Sandy Mendes APRN.GAS PUMPING STATION OPERATOR documented in this encounter [facility] 10-26-2022 Note [facility] 10-26-2022 History of Present illness Narrative M Telephonic Outreach Provider Action/FYI Contacted for: Routine [...] daily weight at home? No Based on field court researcher, the following disposition is advised: No symptoms or symptoms present, not severe. Routed to: No Action Needed NOELLE Education Provided this Outreach: No Sienna Miller RN October 26, 2022 1:27 PM documented in this encounter [facility] 10-26-2022 Note [facility] 10-23-2022 Miscellaneous Notes Pt. ret'd call and was r/s for 10/26/22. 1st attempt to reschedule. Called and lmom. Primary Care Pharmacy Rescheduling Outreach Call center, please contact patient and reschedule telephone and virtual visit for Diabetes management within ~4 week(s). (Visit length: 30 minutes) Thank you, Charlotte Gurrola RPh 10/22/2022 4:11 PM documented in this encounter [facility] 10-22-2022 Note [facility] 09-28-2022 Note [facility] 09-19-2022 Miscellaneous Notes Leighann from patients dialysis center calls in requesting to speak with a coordinator regarding her restrictions. Patient is saying that she cannot have any vinegar and they are questioning the reasoning why. She can be reached at [phone]. documented in this encounter [facility] 08-31-2022 Note [facility] 08-29-2022 Note [facility] 08-29-2022 Note [facility] 08-29-2022 History of Present illness Narrative [...] pounds in a week? No Based on field court researcher, the following disposition is advised: No symptoms or symptoms present, not severe. Routed to: No Action Needed NOELLE Education Provided this Outreach: No Dasha Colvin RN August 29, 2022 4:27 PM documented in this encounter [facility] 08-29-2022 Miscellaneous Notes Addended by: ERIN PLASENCIA on: 08/29/2022 05:36 PM Modules accepted: Orders documented in this encounter [facility] 08-28-2022 Note [facility] 08-28-2022 History of Present illness Narrative [facility] Telephonic Outreach Provider Action/HARIKA Made call #1. Someone picked up phone and hung it up. End outreach Contacted for: Routine Telephonic Outreach Contact made with patient: No, left message. Someone answered and hung up. Dasha Colvin RN August 28, 2022 2:50 PM documented in this encounter [facility] 08-07-2022 Note [facility] 08-07-2022 History of Present illness Narrative [...] made: No medication changes made. At last [employer] message on 07/24/22, lowered insulin dose due [...] 270 tablet 3 Blood-Glucose Meter,Continuous (DEXCOM G7 RUBBER ENGRAVER) misc Use to check blood sugar at [...] 1 Each 3 Blood-Glucose Meter,Continuous (DEXCOM G6 RUBBER ENGRAVER) [facility] Use to check blood sugar at least [...] PCP team follow up: 09/01/19 Charlotte Gurrola, PharmD, BCACP Primary Care Clinical Pharmacist The majority of the pharmacy visit (> 50%) was spent counseling and/or coordinating care for the patient. interaction: telephonic time was 18 minutes. documented in this encounter [facility] 07-17-2022 Note [facility] 07-13-2022 Note [facility] 07-13-[address] - [...] dialysis RD 6. Consider calorie intake of 8964-3307 calories for weight loss (RMR - 300-500 calories) documented in this encounter [facility] 07-12-2022 Note [facility] 07-12-2022 Note [facility] 07-12-2022 History of Present illness Narrative [facility] Transplant Evaluation CC: Consultation for Kidney transplant evaluation. Referred by: Ricki Dc [address] [place] [address] I will communicate with the referring provider [...] CKD (chronic kidney disease) Dialysis M/W/F [facility] COPD (chronic obstructive pulmonary disease) (HCC) Diabetes [...] W/COLLJ SPEC WHEN PFRMD 09/[address] [facility] ESOPHAGOGASTRODUODENOSCOPY TRANSORAL DIAGNOSTIC 12/2009 [facility] Janneth ESOPHAGOGASTRODUODENOSCOPY TRANSORAL DIAGNOSTIC 12/2010 [facility] Janneth FISTULA HERNIA REPAIR HX 12/2008 [...] mouth once daily. Blood-Glucose Meter,Continuous (DEXCOM G7 RUBBER ENGRAVER) [facility] Use to check blood sugar at least four (4) times daily. Blood-Glucose Sensor ([employer] G7 SENSOR) brady Apply new sensor every [...] each sensor change. Blood-Glucose Meter,Continuous (DEXCOM G6 RUBBER ENGRAVER) misc Use to check blood sugar at [...] CA Stroke Father Ischemic Heart Disease Father [place] age 70s Diabetes Mother age 76 other [...] a prior CC echocardiographic exam for comparison [facility]:04/04/2021 Impression: Severe disease of the proximal [...] Other chronic findings, as above. PAP Test: [facility] Mammogram: 05/08/2022 IMPRESSION: NEGATIVE There is [...] Received, date 11/25/2021, 05/02/2021 , 06/02/2020 Reid Honeycutt RN Staff: I have seen the patient and confirmed [...] Kel Victoria MD documented in this encounter [facility] 07-12-2022 Note [facility] 07-12-2022 History of Present illness Narrative [...] dialysis RD 6. Consider calorie intake of 4719-6985 calories for weight loss (RMR - 300-500 [...] likes at dialysis. It is sold on [employer] and she is gong to look into [...] burgers. Snack - frozen fruit Beverages - [place] crush 0; water with pills; 1-2 boosts daily; Take Out: 2x/week: fish sandwich from [employer]. Alcohol- not assessed. Vitamins/Supplements - vitamin b [...] 11:23 AM PAGER: documented in this encounter [facility] 07-12-2022 Note [facility] 07-10-2022 Miscellaneous Notes Patient calls and notified that provider had sent hydrocortisone cream to [facility] pharmacy for itching. Patient voiced understanding. [...] time. Patient is requesting a script for [place] in place of the threadsy. Chrisitna Guerrier is calling Jame Hunt MD today with concern since being prescribed Tramadol she is having itching, stated on her back. Please call Patient. Patient has been identified by name and birthdate. Duration of symptoms: N/A Person calling: self Call patient at: on cell [phone] (home) [phone] (cell) Was an appointment scheduled: No Closing statement: Symptom Call: Thank you for calling [facility], your call is very important. A nurse will call in approximately 2-4 hours during business hours. If this is an emergency, please contact 911. Aleyda Mendoza Pss documented in this encounter [facility] 07-05-2022 Note [facility] 07-05-2022 History of Present illness Narrative [...] about Kidney Allocation Policy -Directions to access [facility]'s data through the SR[facility] website. -Informed Consent for Transplant Program Participation patient education packet -National Kidney Registry pamphlet -Covid-19 Vaccination for Transplant Candidates Method of Instruction: Group class instruction Verbal instruction Computer Patient/Family Response: Patient asked appropriate questions, which were answered satisfactorily. Follow-Up Plan: Contact information given. Referral/Recommendation: None Renetta Mendez RN Pre-Audiometrist documented in this encounter [facility] 06-26-2022 Note [facility] 06-26-2022 History of Present illness Narrative [...] transplant evaluation GLYCEMIC CONTROL: - Share code: [id number] CGM Report ROS: As above. Patient denies [...] once daily. 270 tablet 3 Blood-Glucose Meter,Continuous ([employer]Google G7 RUBBER ENGRAVER) misc Use to check blood sugar at least four (4) times daily. 1 Each 0 Blood-Glucose Sensor (Chat[employer] G7 SENSOR) brady Apply new sensor every [...] Insulin: Yes 450 Strip 3 Blood-Glucose Transmitter (ChatosityCOM G6 TRANSMITTER) brady Apply new transmitter every 90 days. Clean transmitter with an alcohol swab with each sensor change. 1 Each 3 Blood-Glucose Meter,Continuous (DEXCOM G6 RUBBER ENGRAVER) [facility] Use to check blood sugar at least [...] coma, with long-term current use of insulin ([facility]) - ICD9: 250.20, V58.67, ICD10: E11.00, Z79.4 [...] 07/17/22 PCP follow up on 08/31/22 Charlotte Gurrola, PharmD, BCACP Primary Care Clinical Pharmacist The majority of the pharmacy visit (> 50%) was spent counseling and/or coordinating care for the patient. interaction: telephonic time was 20 minutes. documented in this encounter [facility] 06-21-2022 Miscellaneous Notes Patient notified. Verbalized understanding. Please let patient know this has been sent. Thank you Silva Plasencia APRN.CNP PDMP website checked and validated. All prescriptions have been APPROPRIATELY filled. No suspicious activity was identified. 06/21/2022 by Silva Plasencia APRN.CNP Patient reports the mail order for ropinirole will not arrive in time. Asking pcp to send short supply to pharmacy. Pended with norco (as requested below). Reports she is leaving town for the weekend and would like to meat pickler [place]. Patient has been identified by name and date of : Yes, Provider Geremias Date 06-21-22 Time 12:14 pm Patient phones [...] the preferred pharmacy. documented in this encounter [facility] 06-14-2022 Note [facility] 06-14-2022 History of Present illness Narrative [facility] Telephonic Outreach Provider Action/HARIKA Saw pcp on 05/30 Lost balance and [...] daily weight at home? No Based on field court researcher, the following disposition is advised: Symptoms present, not severe. Routed to: No Action Needed NOELLE Education Provided this Outreach: No Roxie Palmer RN June 14, 2022 2:38 PM documented in this encounter [facility] 06-12-2022 Miscellaneous Notes Patient requesting all her meds be sent to [facility] b/c they will send them to her home. Pended all accept the torsemide 20 mg 2 tabs daily- patient reports Dr. Dc, director machine has been having her take 3 tabs daily to equal 60 mg daily for the past week. Asking pcp to write new rx and send to [facility] pharmacy. Patient has been identified by name and date of : Yes, Provider Geremias Date 06-12-22 Time 10:09 am Patient phones [...] Estefani Patel RN documented in this encounter [facility] 05-30-2022 Note [facility] 05-29-2022 Note [facility] 05-29-2022 Miscellaneous Notes Patient currently receives Dexcom G6 from DME ([facility]). She is interested in upgrading to the Dexcom G7 model. We discussed that Medicare only covers a new reader every 5 years but she may be able to get Dexcom G7 sensors to use with phone. [facility] medical DME needs printed orders for Dexcom G7 model. Please process pended orders as print rx. Once PCP has signed, please fax to [facility] at [phone]. Pending orders: Requested Prescriptions Pending Prescriptions Disp Refills Blood-Glucose Meter,Continuous (DEXCOM G7 RUBBER ENGRAVER) misc 1 Each 0 Sig: Use to check blood sugar at least four (4) times daily. Blood-Glucose Sensor (DEXCOM G7 SENSOR) brady 9 Each 3 Sig: Apply new sensor every ten (10) days. Charlotte Gurrola PharmD, BCACP Primary Care Clinical Pharmacist Patient asking message be sent to Charlotte: Reports she spoke with [facility] and they need [facility] to send them a referral for the Dexcom G 7. Please phone patient with any questions. documented in this encounter [facility] 05-29-2022 History of Present illness Narrative Images from the original note were not included. Primary Care Pharmacy Visit CC (Reason for Consult): Diabetes Goal: A1c < 8% Collaborating Provider: Dr. Hunt Last Collaborating Physician/FOUR SLIDE MACHINE SETTER Visit: 05/02/22 Christina Guerrier is a 66 [...] your physician GLYCEMIC CONTROL: - Share code: [id number] CGM Report Summary of CGM Findings: 1- [...] missed doses Pharmacy: [facility] [place] Rx coverage: [facility] Medicare + [facility] Affordability: no issues Diabetes supplies: [employer] System: pill box ACTIVE PROBLEM LIST [...] (Hcc) Krueger's Palsy Coronary Artery Disease Involving [place] Coronary Artery of [place] Heart Without Angina Pectoris Stable Angina (Hcc) [...] alcohol CKD (chronic kidney disease) [facility] COPD (chronic obstructive pulmonary disease) (HCC) Diabetes [...] had complete hysterectomy Psoriasis and similar disorders [place] 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 Blood-Glucose Meter,Continuous (DEXCOM G6 RUBBER ENGRAVER) [facility] Use to check blood sugar at least [...] microalbuminuria, with long-term current use of insulin ([facility]) - ICD9: 250.40, 791.0, V58.67, ICD10: E11.29, [...] Instructed patient to check with her DME ([facility]) on when she can get her new Dexcom G7 reader approved by medicare Follow up: Patient is scheduled to see PCP team on 05/30/22. Patient to follow up with pharmD on 06/26/22. Patient verbalized understanding of instructions. Charlotte Gurrola, PharmD, BCACP Primary Care Clinical Pharmacist The majority of the pharmacy visit (> 50%) was spent counseling and/or coordinating care for the patient. [Telephonic] time was 22 minutes. documented in this encounter [facility] 05-23-2022 Note [facility] 05-23-2022 Miscellaneous Notes Spoke to pt to let her know the orders have been placed for her evaluation and a ludlow machine operator should be contacting her within a week. I advised her to lose weight with her current BMI 42, she would not be able to be listed until 40. She said her ht is 5'6 not 5'4.5 . I said we would need to remeasure her as there are different hts in her chart documented in this encounter [facility] 05-23-2022 History of Present illness [...] HD started 10-19-20 Name of Dialysis Facility: [facility] Diabetes Yes. Diagnosed at age 52 and [...] appointment Renetta Mendez RN Pre-Kidney & Pancreas Audiometrist [facility] documented in this encounter [facility] 05-17-2022 Note [facility] 05-16-2022 Miscellaneous Notes Patient has been [...] Litzy Esparza Pss documented in this encounter [facility] 05-14-2022 Note [facility] 05-14-2022 History of Present illness Narrative Images from the original note were not included. Primary Care Pharmacy Visit CC (Reason for Consult): Diabetes Goal: A1c < 8% Collaborating Provider: Dr. Hunt Last Collaborating Physician/FOUR SLIDE MACHINE SETTER Visit: 05/02/22 Christina Guerrier is a 66 year old female presenting for follow up visit by telephone. Patient consents to pharmacy collaborative practice agreement. 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 Blood-Glucose Meter,Continuous (DEXCOM G6 RUBBER ENGRAVER) [facility] Use to check blood sugar at least [...] 41.60 kg/(m^2) LABS: ESRD on dialysis on [facility] Liver transplant list Lab Results Component [...] microalbuminuria, with long-term current use of insulin ([facility]) - ICD9: 250.40, 791.0, V58.67, ICD10: E11.29, [...] was 25 minutes. documented in this encounter [facility] 05-08-2022 Note [facility] 05-08-2022 History of Present illness Narrative [...] PERIPHERAL IV DATA: Not applicable SIGNED BY: Jack Buck May 08, 2022 7:28 AM documented in this encounter [facility] 05-03-2022 Note [facility] 05-03-2022 History of Present illness Narrative This is a virtual visit using EpiGaN video visit. It required patient-provider interaction for [...] Lymph 1.00 - 4.00 k/uL 0.52 (L) Phillips% % 7.3 Abs Phillips <0.87 k/uL 0.29 Eosin% % 2.5 Abs [...] W/COLLJ SPEC WHEN PFRMD 09/[address] [facility] ESOPHAGOGASTRODUODENOSCOPY TRANSORAL DIAGNOSTIC 12/2009 [facility] Janneth ESOPHAGOGASTRODUODENOSCOPY TRANSORAL DIAGNOSTIC 12/2010 [facility] J[facility] FISTULA HERNIA REPAIR HX 12/2008 [...] CA Stroke Father Ischemic Heart Disease Father [place] age 70s Diabetes Mother age 76 other [...] microalbuminuria, with long-term current use of insulin ([facility]) - Primary E11.29, R80.9, Z79.4 gabapentin (NEURONTIN) [...] TAKE 1 CAPSULE TWICE DAILY Blood-Glucose Transmitter (ChatosityCOM G6 TRANSMITTER) brady Apply new transmitter every 90 days. Clean transmitter with an alcohol swab with each sensor change. Blood-Glucose Meter,Continuous (DEXCOM G6 RUBBER ENGRAVER) [facility] Use to check blood sugar at least [...] which included preparing to see the patient, [id number] patient care, completing clinical documentation, obtaining and/or reviewing separately obtained history, performing a medically appropriate examination, counseling and educating the patient/family/caregiver, and ordering medications, tests, or procedures. Yesica Us PA-C May 03, 2022 11:37 AM documented in this encounter [facility] 05-02-2022 Miscellaneous Notes done Amber Jones RN, BSN Post Liver Audiometrist Patient called she went to get labs Today and her labs are , requesting her Coordinator to Update the orders. documented in this encounter [facility] 05-02-2022 Note [facility] 05-02-2022 History of Present illness Narrative [...] has had a decreased appetite. Went to [place] ER last week from dialysis for left shoulder pain with negative xrays and unremarkable lab work. Still with diarrhea has not seen GI yet and colestipol is on back order. Will have this 1-2 times a day pure liquid and will take immodium if needed. 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 No colitis. Poor rectal sphincter tone. Referred to [facility]. COLONOSCOPY FLX DX W/COLLJ SPEC WHEN PFRMD 11/29/2011 [facility] /Dr. Anderson COLONOSCOPY FLX DX W/COLLJ SPEC WHEN PFRMD 07/2011 [facility] COLONOSCOPY FLX DX W/COLLJ SPEC WHEN PFRMD 09/[address] [facility] ESOPHAGOGASTRODUODENOSCOPY TRANSORAL DIAGNOSTIC 12/2009 [facility] Janneth ESOPHAGOGASTRODUODENOSCOPY TRANSORAL DIAGNOSTIC 12/2010 [facility] J[facility] FISTULA HERNIA REPAIR HX 12/2008 [...] microalbuminuria, with long-term current use of insulin ([facility]) - Primary E11.29, R80.9, Z79.4^Disp: 6000 mL^Rfl: [...] 1 Each^Rfl: 3 Blood-Glucose Meter,Continuous (DEXCOM G6 RUBBER ENGRAVER) misc^Use to check blood sugar at least [...] CA Stroke Father Ischemic Heart Disease Father [place] age 70s Diabetes Mother age 76 other [...] Aged Out DATA REVIEWED: Outside chart from [facility] reviewed. ASSESSMENT/PLAN: 1. Type 2 [...] Silva Plasencia APRN.CNP documented in this encounter [facility] 04-24-2022 Miscellaneous Notes Called and spoke with patient regarding kidney transplant, intake completed, and to nurse coordinator for review. Haritha Rocio Pre- transplant intake form Date: 04/24/2022 Spoke with: Patient : 1955 EMAIL: [employer] M/F: F Work Status: Not working; Disabled Race: W Marital Status: Ht/Wt: BMI: 5' 4 03/05 246 Lbs; BMI = 42 Weight loss without trying? No Decreased Appetite? No Nutrition = 0 Assistive devices? Electric scooter and Rolator Activity Level? Sedentary Smoking? Never O2? COPD/Emphysema? Yes - at dialysis only; Yes-COPD, uses inhaler; No Emphysema Transfusions, Willing to accept? Yes Dialysis? [facility] Days? Start date? 10/18/2020 Referring doctor? RICKI DC Mammo? Pap? Yes - 2021 Yes- 2021 Colonoscopy? Yes - 2 yrs ago (Approx) Previous Transplant? Yes Date/Where at? 05/05/2008 at [facility] Nephrectomy? No Evaluation elsewhere? Listed? Yes at [facility]; No Kidney Biopsy? Liver Biopsy? No Yes - on txp at [facility] Cirrhosis? Hepatitis? HIV? Cancer? Yes - [place] before Txp No No Yes-1998 Uterus and Cervix; had full hysterectomy; No chemo or radiation Diabetes 1 or 2? 2 Age diagnosed? 2008 Insulin dependent? Yes Hypoglycemic unawareness? No Hypertension? CAD? [place]? CABG/STENTS? Yes No No Yes - Hrt Stents 3x - in 2021 at [facility] Stress? Echo? Cath? Yes Yes Yes [...] office. Haritha Chan documented in this encounter [facility] 04-20-2022 Note [facility] 04-20-2022 History of Present illness Narrative [...] like to speak with a social work steam table associate to help give you support for any [...] you up for automated weekly questionnaires through EpiGaN. This is an easy way for us [...] and End outreach. documented in this encounter [facility] 04-19-2022 Note [facility] 04-19-2022 History of Present illness Narrative INSIGHT CDM TELEPHONIC OUTREACH Provider Action/FYI: voicemail Contact made with patient: No - Left message Hello my name is Roxie Palmer RN your Bulking Machine Operator from the [facility] I am calling today for your monthly check in. I am sorry I missed your call. I will reach out to you again tomorrow. Enter next patient outreach date using the Track Pt Outreach. End outreach. documented in this encounter [facility] 04-19-2022 Miscellaneous Notes Patient has [...] microalbuminuria, with long-term current use of insulin ([facility]) - Primary E11.29, R80.9, Z79.4 Date of last office visit in primary care: 09/07/2021 Please advise. Thank you. Beth Pedersen LPN documented in this encounter [facility] 03-19-2022 Miscellaneous Notes Patient has been identified [...] Franci Quinn LPN documented in this encounter [facility] 02-22-2022 History of Present illness [...] like to speak with a social work steam table associate to help give you support for any [...] you up for automated weekly questionnaires through EpiGaN. This is an easy way for us [...] Track Pt Outreach and End outreach. INSIGHT CDM TELEPHONIC OUTREACH Provider Action/FYI: voicemail Contact made with patient: No - Left message Hello my name is Roxie Palmer RN your Bulking Machine Operator from the [facility] I am calling today for your monthly check in. I am sorry I missed your call. I will reach out to you again tomorrow. Enter next patient outreach date for the following business day using the Track Pt Outreach. End outreach. documented in this encounter [facility] 02-09-2022 Miscellaneous Notes Patient went [...] Janelle Crocker RN documented in this encounter [facility] 02-05-2022 Miscellaneous Notes Patient came into office for OV and was treated. Franci Qiunn LPN Christina Guerrier is calling Jame Hunt MD today with concern regarding chronic itching on her back, no rash; OTC creams not helping; she is at dialysis and they even gave her Benadryl and nothing is helping. Please call her. Patient has been identified by name and birthdate. Duration of symptoms: N/A Person calling: self Call patient at: on cell [phone] (home) [phone] (cell) Was an appointment scheduled: No Closing statement: Symptom Call: Thank you for calling [facility], your call is very important. A nurse will call in approximately 2-4 hours during business hours. If this is an emergency, please contact 911. Aleyda [place] Pss documented in this encounter [facility] 02-05-2022 History of Present illness [...] W/COLLJ SPEC WHEN PFRMD 09/[address] [facility] ESOPHAGOGASTRODUODENOSCOPY TRANSORAL DIAGNOSTIC 12/2009 [facility] J[facility]eth ESOPHAGOGASTRODUODENOSCOPY TRANSORAL DIAGNOSTIC 12/2010 [facility] Janneth FISTULA HERNIA REPAIR HX 12/2008 [...] CA Stroke Father Ischemic Heart Disease Father [place] age 70s Diabetes Mother age 76 other [...] G6 TRANSMITTER) brady Blood-Glucose Meter,Continuous (DEXCOM G6 RUBBER ENGRAVER) misc Blood-Glucose Sensor (DEXCOM G6 SENSOR) brady [...] Jame Hunt MD documented in this encounter [facility] 02-01-2022 Miscellaneous Notes Pt notified [...] file. Please advise. documented in this encounter [facility] 01-29-2022 History of Present illness [...] tylenol and diclofenac gel without any help. [place] helps when pain is severe. Denies injury [...] CKD (chronic kidney disease) Dialysis M/W/F [facility] [place] [facility] COPD (chronic obstructive pulmonary disease) (HCC) Diabetes [...] W/COLLJ SPEC WHEN PFRMD 09/[address] [facility] ESOPHAGOGASTRODUODENOSCOPY TRANSORAL DIAGNOSTIC 12/2009 [facility] J[facility] ESOPHAGOGASTRODUODENOSCOPY TRANSORAL DIAGNOSTIC 12/2010 [facility] Janneth FISTULA HERNIA REPAIR HX 12/2008 [...] microalbuminuria, with long-term current use of insulin ([facility]) - Primary E11.29, R80.9, Z79.4^Disp: ^Rfl: 0 [...] 1 Each^Rfl: 3 Blood-Glucose Meter,Continuous (DEXCOM G6 RUBBER ENGRAVER) misc^Use to check blood sugar at least [...] CA Stroke Father Ischemic Heart Disease Father [place] age 70s Diabetes Mother age 76 other [...] activity was identified. 01/29/2022 by Silva Plasencia APRN.GAS PUMPING STATION OPERATOR Prescription instructions reviewed with patient as applicable. Potential red flag symptoms discussed with the patient. Reviewed appropriate action plan to take if red flag symptoms occur. Patient agreeable to treatment plan. Silva Plasencia APRN.CNP documented in this encounter [facility] 01-26-2022 History of Present illness Narrative INSIGHT CDM TELEPHONIC OUTREACH Provider Action/FYI: Cramping in her hands happens frequently-no difference in dialysis days or non-dialysis days Sometimes hard to meat pickler a jug of milk Using arthritis cream [...] like to speak with a social work steam table associate to help give you support for any [...] you up for automated weekly questionnaires through EpiGaN. This is an easy way for us [...] and End outreach. documented in this encounter [facility] 01-24-2022 Miscellaneous Notes Patient called to request the medication again. Remedios--01/01/22 Nov--01/29/22 Last refill--10/20/21 60 with 2 refills Last labs--01/16/22 documented in this encounter [facility] 01-01-2022 History of Present illness Narrative INSIGHT CDM TELEPHONIC OUTREACH Provider Action/FYI: 2nd attempt, left another message Contact made with patient: No - Left message Tierney my name is Roxie Palmer RN your Bulking Machine Operator from the [facility] I am calling today for your monthly check in. I am sorry I missed your call. I will reach out to you again next month. End outreach. 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 No colitis. Poor rectal sphincter tone. Referred to [facility]. COLONOSCOPY FLX DX W/COLLJ SPEC WHEN PFRMD 11/29/2011 [facility] /Dr. Anderson COLONOSCOPY FLX DX W/COLLJ SPEC WHEN PFRMD 07/2011 [facility] COLONOSCOPY FLX DX W/COLLJ SPEC WHEN PFRMD 09/[address] [facility] ESOPHAGOGASTRODUODENOSCOPY TRANSORAL DIAGNOSTIC 12/2009 [facility] J[facility] ESOPHAGOGASTRODUODENOSCOPY TRANSORAL DIAGNOSTIC 12/2010 [facility] J[facility] FISTULA HERNIA REPAIR HX 12/2008 [...] microalbuminuria, with long-term current use of insulin ([facility]) - Primary E11.29, R80.9, Z79.4^Disp: ^Rfl: 0 [...] 1 Each^Rfl: 3 Blood-Glucose Meter,Continuous (DEXCOM G6 RUBBER ENGRAVER) misc^Use to check blood sugar at least [...] CA Stroke Father Ischemic Heart Disease Father [place] age 70s Diabetes Mother age 76 other [...] Silva Plasencia APRN.NATHALY documented in this encounter [facility] 12-29-2021 History of Present illness Narrative INSIGHT CDM TELEPHONIC OUTREACH Provider Action/FYI: voicemail Contact made with patient: No - Left message Hello my name is Roxie Palmer RN your Bulking Machine Operator from the [facility] I am calling today for your monthly check in. I am sorry I missed your call. I will reach out to you again tomorrow. Enter next patient outreach date for the following business day using the Track Pt Outreach. End outreach. documented in this encounter [facility] 12-13-2021 Miscellaneous Notes Patient notified and verbalized understanding. Franci Quinn LPN Silva Plasencia APRN.CNP OBI 7:48 PM Note Please let patient [...] review for improvement. Thank you Silva Plasencia APRN.CNP documented in this encounter [facility] 12-12-2021 Miscellaneous Notes Patient has [...] Nell Lemons LPN documented in this encounter [facility] 12-11-2021 History of Present illness Narrative CC: Patient presents with: Recheck: Hosp follow up hyperkalemia HPI Christina Guerrier is a 66 year old female who presents today for Hospital follow-up. Facility: [facility] Date of visit: 12/07/21-12/08/21 Reason [...] ER for 6 weeks ago. Saw GI Friend for this and had a colonoscopy showing [...] CKD (chronic kidney disease) Dialysis M/W/F [facility] [place] COPD (chronic obstructive pulmonary disease) (HCC) Diabetes [...] W/COLLJ SPEC WHEN PFRMD 09/[address] [facility] ESOPHAGOGASTRODUODENOSCOPY TRANSORAL DIAGNOSTIC 12/2009 [facility] J[facility] ESOPHAGOGASTRODUODENOSCOPY TRANSORAL DIAGNOSTIC 12/2010 [facility] J[facility]eth FISTULA HERNIA REPAIR HX 12/2008 [...] microalbuminuria, with long-term current use of insulin ([facility]) - Primary E11.29, R80.9, Z79.4^Disp: ^Rfl: 0 [...] 1 Each^Rfl: 3 Blood-Glucose Meter,Continuous (DEXCOM G6 RUBBER ENGRAVER) misc^Use to check blood sugar at least [...] CA Stroke Father Ischemic Heart Disease Father [place] age 70s Diabetes Mother age 76 other [...] Aged Out DATA REVIEWED: Outside chart from [facility] reviewed. ASSESSMENT/PLAN: 1. History of [...] with more than 50% of the total fahq-my-gomp time of the visit in counseling / coordination of care. documented in this encounter [facility] 12-04-2021 History of Present illness Narrative INSIGHT [facility] TELEPHONIC OUTREACH Provider Action/FYI: 2nd attempt, left another message Contact made with patient: No - Left message Tierney my name is Roxie Palmer RN your Bulking Machine Operator from the [facility] I am calling today for your bi-weekly check in. I am sorry I missed your call. I will reach out to you again tomorrow. (if the third call I will reach out to you again next week) Enter next patient outreach date for the following day using the Track Pt Outreach. End outreach. documented in this encounter [facility] 12-01-2021 History of Present illness Narrative INSIGHT [facility] TELEPHONIC OUTREACH Provider Action/FYI: voicemail Contact made with patient: No - Left message Tierney my name is Roxie Palmer RN your Bulking Machine Operator from the [facility] I am calling today for your bi-weekly check in. I am sorry I missed your call. I will reach out to you again tomorrow. (if the third call I will reach out to you again next week) Enter next patient outreach date for the following business day using the Track Pt Outreach. End outreach. documented in this encounter [facility] 11-07-2021 History of Present illness Narrative INSIGHT [facility] TELEPHONIC OUTREACH Provider Action/FYI: 2nd attempt No answer/voicemail not set up Unable to leave message Contact made with patient: No - Unable to leave message Entered next patient outreach date for the following business day, if third call please enter next outreach date for one week in the Track Pt. Outreach - End Outreach documented in this encounter [facility] 11-03-2021 History of Present illness Narrative INSIGHT [facility] TELEPHONIC OUTREACH Provider Action/FYI: No answer/voicemail not set up Contact made with patient: No - Unable to leave message Entered next patient outreach date for the following business day, if third call please enter next outreach date for one week in the Track Pt. Outreach - End Outreach documented in this encounter [facility] 11-02-2021 History of Present illness [...] on 10/12, lunchtime Novolog was increased. At GAS PUMPING STATION OPERATOR visit on 10/20, patient seen for ear pain and vaginal/rectal bleeding, and on 10/22 patient hospitalized for GI bleed. Subjective: HPI: Patient reports she only has 1 Dexcom sensor left. She gets supplies through [facility]. 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 Via Syringe Insulin Syringe-Needle U-100 0.5 mL 31 gauge x 07/17 Use to inject insulin 5 times daily [...] ALT 25 10/20/2021 ESRD on dialysis on [facility] Liver transplant list Lab Results Component [...] the dose of Novolog Advised to call [facility] to request refill of CGM sensors; phone number provided 2. Medication management - ICD9: V58.69, ICD10: Z79.899 Reviewed all medications, indications, dosing, frequency, administration with patient. Medication list updated as described above. Patient is scheduled to see GAS PUMPING STATION OPERATOR on 01/04. Patient to have PharmD f/u on 12/07. Patient verbalized understanding of instructions. Kim La PharmD, [facility] Primary Care Clinical Pharmacist The majority of the pharmacy visit (> 50%) was spent counseling and/or coordinating care for the patient. interaction: telephonic time was 30 minutes. 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 [facility] ESOPHAGOGASTRODUODENOSCOPY TRANSORAL DIAGNOSTIC 12/2009 [facility] ESOPHAGOGASTRODUODENOSCOPY TRANSORAL DIAGNOSTIC 12/2010 [facility] J[facility] FISTULA HERNIA REPAIR HX 12/2008 [...] CA Stroke Father Ischemic Heart Disease Father [place] age 70s Diabetes Mother age 76 other [...] microalbuminuria, with long-term current use of insulin ([facility]) - Primary E11.29, R80.9, Z79.4 blood sugar diagnostic (BLOOD GLUCOSE TEST) test strip Test blood sugar(s) 5 times daily. Dx: Type 2 DM - Controlled E11.9 Insulin: Yes tacrolimus IR (PROGRAF) 0.5 mg capsule TAKE 1 CAPSULE TWICE DAILY aspirin, enteric coated (ECOTRIN LOW STRENGTH) 81 mg EC tablet Take 1 tablet by mouth once daily. Blood-Glucose Meter,Continuous (DEXCOM G6 RUBBER ENGRAVER) [facility] Use to check blood sugar at least [...] O2 Tubing. Use as directed. Blood-Glucose Transmitter (C[employer] G6 TRANSMITTER) brady Apply new transmitter every [...] - Work up with Ultrasound transvaginal - [place] low residue diet - Treatment for constipation discussed RTO as needed to follow-up with PCP team. Prescription instructions reviewed with patient as applicable. Potential red flag symptoms discussed with the patient. Reviewed appropriate action plan to take if red flag symptoms occur. Patient agreeable to treatment plan. Jaci Lucero APRN.GAS PUMPING STATION OPERATOR [address] [place] [address] documented in this encounter [facility] 10-12-2021 History of Present illness [...] with cellulitis and went to ED. Saw GAS PUMPING STATION OPERATOR on 09/28 for ER f/up and no [...] popcorn (white cheddar) Beverages: fluid restriction, usually [place] Crush Zero, 1 can daily; chews ice MEDICATIONS: Pill bottles are not present Adherence: denies missed doses Pharmacy: [facility] in [place] Rx coverage: [employer] H[employer] Medicare + [facility] Affordability: no issues Diabetes supplies: [employer] Organization System: pill box ACTIVE PROBLEM LIST [...] (Hcc) Krueger's Palsy Coronary Artery Disease Involving [place] Coronary Artery of [place] Heart Without Angina Pectoris Stable Angina (Hcc) [...] CKD (chronic kidney disease) Dialysis M/W/F [facility] [place] COPD (chronic obstructive pulmonary disease) (HCC) Diabetes [...] disorders [place] 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 Splenomegaly ALLERGIES Allergen [...] hypoglycemia Insulin: yes Blood-Glucose Meter,Continuous (DEXCOM G6 RUBBER ENGRAVER) [facility] Use to check blood sugar at least [...] microalbuminuria, with long-term current use of insulin ([facility]) - Primary E11.29, R80.9, Z79.4 insulin glargine [...] ALT 31 07/03/2021 ESRD on dialysis on [facility] Liver transplant list Lab Results Component Value Date CHOL 141 07/03/2021 CHOL 145 04/12/2021 LDL 64 07/03/2021 LDL 43 04/12/2021 HDL 29 07/03/2021 HDL 32 04/12/2021 TG 242 07/03/2021 TG 349 04/12/2021 The 10-year ASCVD risk score (Honesdalejoseph MONROY Jr., et al., 2013) is: 16.4% [...] due now Patient is scheduled to see GAS PUMPING STATION OPERATOR on 01/04. Patient to have PharmD f/u on 11/02. Patient verbalized understanding of instructions. Kim La PharmD, BCPS Primary Care Clinical Pharmacist The majority of the pharmacy visit (> 50%) was spent counseling and/or coordinating care for the patient. interaction: telephonic time was 28 minutes. documented in this encounter [facility] 10-09-2021 History of Present illness [...] like to speak with a social work steam table associate to help give you support for any [...] you up for automated weekly questionnaires through EpiGaN. This is an easy way for us [...] and End outreach. documented in this encounter [facility] 09-28-2021 Miscellaneous Notes Patient stopped [...] have patient manually download the reader to Wetradetogether online prior to next PharmD visit. Kim La, Selena, [facility] Primary Care Clinical Pharmacist Cathryn LEA [facility] documented in this encounter [facility] 09-28-2021 History of Present illness [...] current concerns. 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 No colitis. Poor rectal sphincter tone. Referred to [facility]. COLONOSCOPY FLX DX W/COLLJ SPEC WHEN PFRMD 11/29/2011 [facility] Main /Dr. Anderson COLONOSCOPY FLX DX W/COLLJ SPEC WHEN PFRMD 07/2011 J[facility] COLONOSCOPY FLX DX W/COLLJ SPEC WHEN PFRMD 09/[address] [facility] ESOPHAGOGASTRODUODENOSCOPY TRANSORAL DIAGNOSTIC 12/2009 [facility] Janneth ESOPHAGOGASTRODUODENOSCOPY TRANSORAL DIAGNOSTIC 12/2010 [facility] Janneth FISTULA HERNIA REPAIR HX 12/2008 [...] each sensor change. Blood-Glucose Meter,Continuous (DEXCOM G6 RUBBER ENGRAVER) [facility] Use to check blood sugar at least [...] CA Stroke Father Ischemic Heart Disease Father [place] age 70s Diabetes Mother age 76 other [...] Aged Out DATA REVIEWED: Outside chart from [facility] reviewed. ASSESSMENT/PLAN: 1. Lump of [...] Silva Plasencia APRN.NATHALY documented in this encounter [facility] 09-26-2021 Miscellaneous Notes REMEDIOS: 08/31/2021 Last refill: 04/19/2021 QTY: 60 Refills: 5 Patient's request for medication is as follows: Pending Prescriptions Disp Refills TRAZODONE 100 MG TABLET 60 tablet 5 Sig: Take 2 tablets by mouth daily at bedtime. JHON: No Please approve the above prescription(s) to electronically send to pharmacy. Jaden Yadav Ma documented in this encounter [facility] 09-21-2021 History of Present illness [...] TIME: 10:49 AM documented in this encounter [facility] 09-11-2021 Miscellaneous Notes Reason for [...] and will have family take her to [place] ER Reason for Disposition Blood glucose > [...] N/A Protocols used: DIABETES - HIGH BLOOD [id number] documented in this encounter [facility] 09-11-2021 History of Present illness Narrative [facility] CDM Enrollment Provider Action/FYI: Returned call Patient referred by: [facility] Osei Contact made with patient: Yes - Patient identified by name and . Discussed care with patient Tierney this is Roxie Palmer RN and I am calling from Jame Hunt MD office at the [facility]. I am a RN Bulking Machine Operator with our [facility] Chronic Disease Management program. [...] few questions once a week through your Epi[employer] account. It will automatically show up for [...] stressful. Can we connect you with a [facility] Health Orchid Superintendent to find a program that could help [...] Provider Action/FYI: ckd voicemail Patient referred by: C Osei Contact made with patient: No - Left Message: Hi my name is Roxie Palmer RN and I am calling from the [facility] on behalf of your PCP, Jame Hunt MD. We are excited to share with you a new program to help you manage your health. Please call me back at [phone] between the hours of 8am-5pm Saturday-Saturday. You will receive another phone call from me within the next two business days. I hope you can take the time to speak with me. (Keep encounter open and attempt 2nd outreach in two business days from today) END OUTREACH documented in this encounter [facility] 09-07-2021 Miscellaneous Notes Images from the original note were not included. Approved Prior authorization approved Payer: [facility] [phone] PA Case: [id number], Status: Approved, Coverage Starts on: 09/07/2021 1:53:39 PM, Coverage Ends on: 09/07/2021 1:53:39 PM. Questions? Contact . Approval Details Authorized from September 07, 2021 to September 07, 2021 Electronic PA completed for insulin aspart unit(s) 100(novolog U100 insulin aspart) documented in this encounter [facility] 09-07-2021 Miscellaneous Notes Noted. The following approved medication requests have been transmitted electronically. Signed Prescriptions Disp Refills insulin aspart U-100 (NOVOLOG U-100 INSULIN ASPART) 100 unit/mL 6 Vial 3 Sig: Inject 22 Units subcutaneously three times daily before meals. Type 2 diabetes mellitus with microalbuminuria, with long-term current use of insulin ([facility]) - Primary E11.29, R80.9, Z79.4 JHON: No Authorizing Provider: JAME HUNT Ordering User: KIM LA RPh [facility] pharmacy calling with request for new script for Novolog Insulin with diagnosis code on script for Medicare billing. Amadeo Mar RN documented in this encounter [facility] 09-07-2021 History of Present illness [...] for cellulitis on right leg. At last GAS PUMPING STATION OPERATOR appt, cellulitis appeared to be resolved but [...] present Adherence: denies missed doses Pharmacy: [facility] [place] Rx coverage: [employer] Medicare + [facility] Affordability: no issues Diabetes supplies: [employer] System: pill box ACTIVE PROBLEM LIST WOUND [...] (Hcc) Krueger's Palsy Coronary Artery Disease Involving [place] Coronary Artery of [place] Heart Without Angina Pectoris Stable Angina (Hcc) [...] hypoglycemia Insulin: yes Blood-Glucose Meter,Continuous (DEXCOM G6 RUBBER ENGRAVER) misc Use to check blood sugar at [...] microalbuminuria, with long-term current use of insulin ([facility]) - ICD9: 250.40, 791.0, V58.67, ICD10: E11.29, [...] described above. Patient is scheduled to see GAS PUMPING STATION OPERATOR on 09/28. Patient to have PharmD f/u on 10/12. Patient verbalized understanding of instructions. Kim La PharmD, [facility] Primary Care Clinical Pharmacist Julia Gu [facility] The majority of the pharmacy visit (> 50%) was spent counseling and/or coordinating care for the patient. interaction: face to face time was 28 minutes. documented in this encounter [facility] 09-06-2021 Miscellaneous Notes Pt called [...] Janelle Crocker RN documented in this encounter [facility] 09-06-2021 Miscellaneous Notes Yu Rong message sent to patient. It seems like [...] of office today. Patient phone number is [phone]. Please advise 09/05/2021 8:05 AM - Radiology, Oru In Impression IMPRESSION: Nonspecific intramuscular hypoechoic lesion. Possibly, this is an organizing hematoma and correlation to any history of recent trauma is suggested. Either follow-up examinations or MRI could be considered for further assessment. Nutrition Aide: BRET Transcribe Date/Time: Sep 05 2021 8:02A [...] some internal fluid. documented in this encounter [facility] 08-31-2021 History of Present illness [...] Went to dialysis yesterday, was seen by director machine and had leg checked again for DVT [...] CKD (chronic kidney disease) Dialysis M/W/F [facility] COPD (chronic obstructive pulmonary disease) (HCC) Diabetes mellitus without mention of complication Diabetic polyneuropathy (HCC) 02/04/2017 Disorder of thyroid DVT (deep venous thrombosis) (HCC) Esophageal reflux Hammer toes, bilateral 11/30/2016 History of transfusion Hypertension Incisional hernia 12/30/2008 Liver replaced by transplant ([facility]) 2008 - 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 Plan: - Continue Tacrolimus 1.5 mg BID - daily Tacrolimus levels - Continue Otezla 30 mg BID Lymphedema RAUL (obstructive sleep apnea) does not use CPAP Other and unspecified hyperlipidemia Other lymphedema runs in family PMH - PAST MEDICAL HISTORY OF 1998 endometrial cancer, had complete hysterectomy Psoriasis and similar disorders [place] 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 No colitis. Poor rectal sphincter tone. Referred to [facility]. COLONOSCOPY FLX DX W/COLLJ SPEC WHEN PFRMD 11/29/2011 [facility] Main /Dr. Anderson COLONOSCOPY FLX DX W/COLLJ SPEC WHEN PFRMD 07/2011 Jann[facility] COLONOSCOPY FLX DX W/COLLJ SPEC WHEN PFRMD 09/[address] [facility] ESOPHAGOGASTRODUODENOSCOPY TRANSORAL DIAGNOSTIC 12/2009 [facility] Janneth ESOPHAGOGASTRODUODENOSCOPY TRANSORAL DIAGNOSTIC 12/2010 [facility] Janneth FISTULA HERNIA REPAIR HX 12/2008 [...] each sensor change. Blood-Glucose Meter,Continuous (DEXCOM G6 RUBBER ENGRAVER) [facility] Use to check blood sugar at least [...] CA Stroke Father Ischemic Heart Disease Father [place] age 70s Diabetes Mother age 76 other [...] Silva Plasencia APRN.CNP documented in this encounter [facility] 08-25-2021 History of Present illness Narrative CC: Patient presents with: Recheck: Follow up leg HPI Christina Guerrier is a 66 year [...] FLX DX W/COLLJ SPEC WHEN PFRMD 11/29/2011 [facility] Main /Dr. Anderson COLONOSCOPY FLX DX W/COLLJ SPEC WHEN PFRMD 07/2011 J[facility] COLONOSCOPY FLX DX W/COLLJ SPEC WHEN PFRMD 09/[address] [facility] ESOPHAGOGASTRODUODENOSCOPY TRANSORAL DIAGNOSTIC 12/2009 [facility] Janneth ESOPHAGOGASTRODUODENOSCOPY TRANSORAL DIAGNOSTIC 12/2010 [facility] Janneth FISTULA HERNIA REPAIR HX 12/2008 [...] each sensor change. Blood-Glucose Meter,Continuous (DEXCOM G6 RUBBER ENGRAVER) [facility] Use to check blood sugar at least [...] CA Stroke Father Ischemic Heart Disease Father [place] age 70s Diabetes Mother age 76 other [...] Silva Plasencia APRN.CNP documented in this encounter [facility] 08-21-2021 History of Present illness Narrative POPULATION HEALTH NAVIGATION OUTREACH Action/ Patient Outreach: [facility] Support - Spoke with patient to schedule [...] Care Gap or Scheduling/Wellness visits Payer: Payor: [employer] MEDICARE / Plan: [employer] GOLD PLUS / Product Type: HMO / Care Gap Reviewed:: Follow-up appointment Reminder: Reminder note to check Health Maintenance for items below Health Maintenance items due: SHINGRIX VACCINE(1 of 2) Never done PAP TESTING due on 03/05/2020 Message Sent to Practice: No Navigation Signature: Haritha Blackwell Pss August 21, 2021 5:00 PM documented in this encounter [facility] 08-14-2021 Miscellaneous Notes forms completed and faxed on 08/09/2021. Franci Quinn LPN Forms received and placed papers on providers desk. Franci Quinn LPN Ok noted. Jasmina from [facility] calling she will be faxing Power chair forms back to office with on cover sheet what needs to be fixed on the forms. 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 [facility] ESOPHAGOGASTRODUODENOSCOPY TRANSORAL DIAGNOSTIC 12/2009 [facility] aJnneth ESOPHAGOGASTRODUODENOSCOPY TRANSORAL DIAGNOSTIC 12/2010 [facility] FISTULA HERNIA REPAIR HX 12/2008 incisional hernia [...] CA Stroke Father Ischemic Heart Disease Father [place] age 70s Diabetes Mother age 76 other [...] G6 TRANSMITTER) brady Blood-Glucose Meter,Continuous (DEXCOM G6 RUBBER ENGRAVER) [facility] Blood-Glucose Sensor (DEXCOM G6 SENSOR) brady triamcinolone [...] Jame Hunt MD documented in this encounter [facility] 08-09-2021 Miscellaneous Notes Form completed [...] note with the information below from patient. Charlotte Jara PharmD, BCACP Primary Care Clinical Pharmacist [facility] Patient takes insulin: Novolog unit(s)-100 3 [...] or on an insulin pump Thanks, Charlotte Gurrola PharmD, BCACP Primary Care Clinical Pharmacist [facility] Patient is interested in getting the [place] and may need a follow up appointment. Please advise documented in this encounter [facility] 08-03-2021 Miscellaneous Notes Pt would like these medications reordered. Correct pharmacy verified on order. Pending Prescriptions Disp Refills ASPIRIN 81 MG CHEWABLE TABLET Sig: Take 4 tablets by mouth once daily. JHON: No documented in this encounter [facility] 07-24-2021 History of Present illness Narrative Charbel Esparza MD Department of Orthopaedics Orthopaedics [address] [facility] [address] Dept: [phone] Dept July 24, 2021 Consultation requested by [...] IMPRESSION: Osteoarthrosis. No evidence of inflammatory arthropathy. 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 [facility] ESOPHAGOGASTRODUODENOSCOPY TRANSORAL DIAGNOSTIC 12/2009 [facility] Janneth ESOPHAGOGASTRODUODENOSCOPY TRANSORAL DIAGNOSTIC 12/2010 [facility] Janneth FISTULA HERNIA REPAIR HX 12/2008 [...] CA Stroke Father Ischemic Heart Disease Father [place] age 70s Diabetes Mother age 76 other [...] each sensor change. Blood-Glucose Meter,Continuous (DEXCOM G6 RUBBER ENGRAVER) [facility] Use to check blood sugar at least [...] PHYSICIAN: Ms. Christina Guerrier was referred to me for consultation by the following physician. This consultation note will be sent to the following physician by either mail or electronic medical record. Josse Lance [address] [facility] [address] Jame Hunt MD [address] [facility] [address] Charbel Esparza MD documented in this encounter [facility] 07-21-2021 Miscellaneous Notes Patient calling [...] chair. Please advise documented in this encounter [facility] 07-13-2021 Miscellaneous Notes Patient notified that prescription was sent to the pharmacy and verbalized understanding. Rx refill sent to [facility]. PDMP website checked and validated. All prescriptions have been APPROPRIATELY filled. No suspicious activity was identified. 07/13/2021 by Josse Lance APRN.LOADING 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 Patient called to check on her request for medication; does not see Ortho until 07/27/21. Please send to [facility] Julia; added to file. Please call her today. Patient said Josse Lance referred her to ortho for wrist pain. Patient can't get in until 07/27/21. Wants to know if she can have a refill of [place] or another rx for the pain. Please advise at [phone]. documented in this encounter [facility] 07-13-2021 Miscellaneous Notes PharmNichole printed out and completed Physician Order form for [facility] Medical - placed on PCP's desk for signature. Will also need PCP's last chart note from 05/23/21 addended to include the following information: - Patient checking BGs 4x/day - Patient is adjusting insulin dose based on BG readings - Patient is injecting insulin 4 times daily Once completed, will plan to fax to [facility] Medical. Kim La PharmD, BCPS Primary Care Clinical Pharmacist Julia Gu [facility] documented in this encounter [facility] 07-12-2021 Miscellaneous Notes I called [employer] today at the number provided below. Spoke with a very helpful national account representative named Lokesh who said the order needs to be submitted through medical benefit to [employer]. PharmNichole will plan to resubmit paperwork tomorrow. No letter or fax. I called the per PA response [employer] at [phone] PharmNichole spoke with patient (can see MyC msg from today and also a replay from 06/29 MyC msg). Patient is certain her insurance will cover Dexcom if it is process through prescription vs medical. She said that [employer] states more info is needed but was not provided more information. Has our office received any fax or letters from [employer] regarding what information we may be missing? PharmNichole sent a MyChart msg to patient today to see if she is aware if insurance prefers Freestyle [place] 2. The patient notified PharmNichole last month that her insurance should cover Dexcom if sent through [employer]. Will await patient response. Kim La PharmD, [facility] Primary Care Clinical Pharmacist Julia Gu [facility] Called number and the PA needs to come from the pharmacy. They are asking for code DME H. The Dr office does not have this code. This call reference number is [phone]. Call to [facility] and pharmacist doesn't have this info either. He doesn't believe this would be covered.What about a freestyle [place]? Images from the original note were not included. Per covermymeds PA response. Per [employer] for dexcom transmitter. PER the pharmacy this needs to have Prior Authorization thru her medical insurance not a covered benefit. documented in this encounter [facility] 07-12-2021 Miscellaneous Notes PharmD called [employer] ([phone]) and spoke with national account representative, Lokesh. Sees that authorization was submitted on July 10 and it is pending. He reported the authorization was submitted incorrectly as pharmacy benefit instead of a medical benefit. He said application needs to be submitted through [facility] [employer] (contact number provided: ). PharmD will plan to resubmit application through [facility] tomorrow when in the [place] office. Kim La PharmD, [facility] Primary Care Clinical Pharmacist Cathryn LEA [facility] documented in this encounter [facility] 07-09-2021 Miscellaneous Notes Patient is [...] with current treatment. 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 Noted. Please le us know if you need anything from PCP. Thank you Silva Plasencia APRN.NATHALY Noted, once fax is received place document it and place on PharmNichole's desk. Thanks! Kim La PharmD, [facility] Primary Care Clinical Pharmacist Julia Gu [facility] Rossana @ [employer] calling to let PCP know she is faxing a new order form for Dexcom G6 System. She states the original order was incomplete. Amadeo Mar RN documented in this encounter [facility] 06-13-2021 Miscellaneous Notes Tonya from [facility] calling asking for paper work to be faxed to [phone]. Found paper work and faxed as requested. Current paperwork and orders sent to [facility]. We will await response. Franci Quinn LPN Franci. Do we have the paper work we sent to the [facility]ius DME people? How do I order for this? dont we get a form that we need to fill? Christina Guerrier is calling Jame Hunt MD today to request an order for a motorized scooter. Patient said this has been requested before but sent to [facility] who did not have the scooter in stock. Patient asking if an order can be faxed to [facility]. Please fax order to [phone]. Patient asking tor a return call.No chief complaint on file. Patient has been identified by name and birthdate. Duration of symptoms: N/A Person calling: self Call patient at: on cell [phone] (home) [phone] (cell) Was an appointment scheduled: No Closing statement: Results or non-symptom based questions: Thank you for calling [facility], your call will be returned within the next business day. Veronica Richard documented in this encounter [facility] 06-08-2021 Miscellaneous Notes Script for [...] Amadeo Mar RN documented in this encounter [facility] 06-08-2021 Miscellaneous Notes PharmD completed [employer] CMN form. PCP signed form and chart note and faxed to [facility] today. Kim La PharmD, BCPS Primary Care Clinical Pharmacist Julia Gu [facility] documented in this encounter [facility] 06-08-2021 History of Present illness [...] a protein shake) Beverages are limited. Drinks [place] Crush (its the only thing she can stomach; 1 can lasts 1 day) MEDICATIONS: Pill bottles are not present Adherence: denies missed doses Pharmacy: [facility] Rx coverage: [employer] HMO Medicare + [facility] Affordability: no issues Diabetes supplies: [employer] System: pill box ACTIVE PROBLEM LIST WOUND [...] (Hcc) Krueger's Palsy Coronary Artery Disease Involving [place] Coronary Artery of [place] Heart Without Angina Pectoris Stable Angina (Hcc) [...] Incisional hernia 12/30/2008 Liver replaced by transplant ([facility]) 2008 - Cirrhosis s/p OLT 2008 - Cirrhosis 04/05 [facility] Plan: - Continue Tacrolimus 1.5 mg BID - daily Tacrolimus levels - Continue Otezla 30 mg BID Lymphedema RAUL (obstructive sleep apnea) does not use CPAP Other and unspecified hyperlipidemia Other lymphedema runs in family PMH - PAST MEDICAL HISTORY OF 1998 endometrial cancer, had complete hysterectomy Psoriasis and similar disorders [place] 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 Kim La PharmD, [facility] Primary Care Clinical Pharmacist Julia Gu [facility] The majority of the pharmacy visit (> 50%) was spent counseling and/or coordinating care for the patient. interaction: face to face time was 55 minutes. documented in this encounter [facility] 06-08-2021 Instructions Kim La RPh - 06/08/2021 3:00 PM EDT INCREASE Lantus to 50 units twice daily INCREASE Novolog to 17 units with meals Continue monitoring your blood sugars. PharmD will work on getting order submitted for continuous glucose monitor. Contact PharmD if any issues with low blood sugars. documented in this encounter [facility] 06-08-2021 Miscellaneous Notes Addended by: KIM LA on: 06/08/2021 04:09 PM Modules accepted: Orders documented in this encounter [facility] 06-02-2021 Miscellaneous Notes This was faxed 03/29/21. Will refax today 06/02. Patient is calling in today still waiting on scooter. Keny is still waiting on the actual order for this. [facility] phone number is [phone] If you can please send an order [...] work rec'd from the office from whatever [employer] company pt is using for this. Please set the prior auth in motion Patient reports Elodia tells her pcp needs to do a PA for the electric scooter. Prior Authorization Documentation Prior authorization requested for the following medication: Medication: Electric Scooter Provider: [employer] Company Name: [employer] Phone number: [phone] Patient ID number: [id number] [facility] Name: [facility] - will not get more until August or September Pharmacy Telephone number: Will find out from [employer] where can get one from. Patient also wants pcp to know she had heart cath done on , and will need triple bypass. Patient reports she spoke with surgeon yesterday- and surgeon will call her next at 8:30 am to let her know. 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 0 11/29/2020 Last [...] of this encounter (statuses as of 06/08/2021) [facility] Past illness Narrative* [...] of this encounter (statuses as of 06/08/2021) [facility] Narrative* Problem Noted Date Resolved Date Acute renal failure superimp osed on stage 4 chronic kidney disease 01/02/2020 11/29/2020 Shortness of breath 11/23/2019 11/29/2020 Meralgia paresthetica of right side 02/20/2018 06/09/2018 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 0 11/29/2020 Last [...] of this encounter (statuses as of 06/09/2021) [facility] Past illness Narrative* Problem Noted Date Resolved Date Acute renal failure superimp osed on stage 4 chronic kidney disease 01/02/2020 11/29/2020 Shortness of breath 11/23/2019 11/29/2020 Meralgia paresthetica of right side 02/20/2018 06/09/2018 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 12/07/2016 0 11/29/2020 Last [...] of this encounter (statuses as of 06/13/2021) [facility] Narrative* [...] of this encounter (statuses as of 06/15/2021) [facility]ative* [...] of this encounter (statuses as of 06/29/2021) [facility]ative* [...] of this encounter (statuses as of 07/03/2021) [facility] Narrative* Problem Noted Date Resolved Date Acute renal failure superimp osed on stage 4 chronic kidney disease 01/02/2020 11/29/2020 Shortness of breath 11/23/2019 11/29/2020 Meralgia paresthetica of right side 02/20/2018 06/09/2018 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 12/07/2016 0 11/29/2020 Last [...] of this encounter (statuses as of 07/09/2021) [facility]ative* [...] of this encounter (statuses as of 07/11/2021) [facility] Narrative* Problem Noted Date Resolved Date Acute renal failure superimp osed on stage 4 chronic kidney disease 01/02/2020 11/29/2020 Shortness of breath 11/23/2019 11/29/2020 Meralgia paresthetica of right side 02/20/2018 06/09/2018 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 12/07/2016 0 11/29/2020 Last [...] of this encounter (statuses as of 07/12/2021) [facility]ative* [...] of this encounter (statuses as of 07/13/2021) [facility]ative* [...] of this encounter (statuses as of 07/13/2021) [facility] Narrative* Problem Noted Date Resolved Date Acute renal failure superimp osed on stage 4 chronic kidney disease 01/02/2020 11/29/2020 Shortness of breath 11/23/2019 11/29/2020 Meralgia paresthetica of right side 02/20/2018 06/09/2018 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 12/07/2016 0 11/29/2020 Last [...] of this encounter (statuses as of 07/14/2021) [facility]ative* [...] of this encounter (statuses as of 08/03/2021) [facility] N[facility]ative* Problem Noted Date Resolved Date Acute renal failure superimp osed on stage 4 chronic kidney disease 01/02/2020 11/29/2020 Shortness of breath 11/23/2019 11/29/2020 Meralgia paresthetica of right side 02/20/2018 06/09/2018 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 12/07/2016 0 11/29/2020 Last [...] of this encounter (statuses as of 08/08/2021) [facility]ative* [...] of this encounter (statuses as of 08/09/2021) [facility]ative* Problem Noted Date Resolved Date Acute renal failure superimp osed on stage 4 chronic kidney disease 01/02/2020 11/29/2020 Shortness of breath 11/23/2019 11/29/2020 Meralgia paresthetica of right side 02/20/2018 06/09/2018 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 12/07/2016 0 11/29/2020 Last [...] of this encounter (statuses as of 08/10/2021) [facility]ative* Problem Noted Date Resolved Date Acute renal failure superimp osed on stage 4 chronic kidney disease 01/02/2020 11/29/2020 Shortness of breath 11/23/2019 11/29/2020 Meralgia paresthetica of right side 02/20/2018 06/09/2018 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 12/07/2016 0 11/29/2020 Last [...] of this encounter (statuses as of 08/14/2021) [facility] N[facility]ative* Problem Noted Date Resolved Date Acute renal failure superimp osed on stage 4 chronic kidney disease 01/02/2020 11/29/2020 Shortness of breath 11/23/2019 11/29/2020 Meralgia paresthetica of right side 02/20/2018 06/09/2018 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 12/07/2016 0 11/29/2020 Last [...] vs abscess ( intraabdominal) vs others Plan Levni culture ( urine blood) Monitor closely and [...] of this encounter (statuses as of 08/14/2021) [facility] Narrative* Problem Noted Date Resolved Date Acute renal failure superimp osed on stage 4 chronic kidney disease 01/02/2020 11/29/2020 Shortness of breath 11/23/2019 11/29/2020 Meralgia paresthetica of right side 02/20/2018 06/09/2018 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 12/07/2016 0 11/29/2020 Last [...] of this encounter (statuses as of 08/21/2021) [facility]* [...] of this encounter (statuses as of 08/25/2021) [facility]ative* [...] of this encounter (statuses as of 08/31/2021) [facility]arrative* [...] of this encounter (statuses as of 09/06/2021) [facility]arrative* [...] of this encounter (statuses as of 09/06/2021) [facility] Narrative* [...] of this encounter (statuses as of 09/07/2021) [facility] Narrative* Problem Noted Date Resolved Date Acute renal failure superimp osed on stage 4 chronic kidney disease 01/02/2020 11/29/2020 Shortness of breath 11/23/2019 11/29/2020 Meralgia paresthetica of right side 02/20/2018 06/09/2018 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 12/07/2016 0 11/29/2020 Last [...] of this encounter (statuses as of 09/07/2021) [facility] Narrative* Problem Noted Date Resolved Date Acute renal failure superimp osed on stage 4 chronic kidney disease 01/02/2020 11/29/2020 Shortness of breath 11/23/2019 11/29/2020 Meralgia paresthetica of right side 02/20/2018 06/09/2018 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 12/07/2016 0 11/29/2020 Last [...] of this encounter (statuses as of 09/07/2021) [facility]ative* [...] of this encounter (statuses as of 09/11/2021) [facility] N[facility]ative* Problem Noted Date Resolved Date Acute renal failure superimp osed on stage 4 chronic kidney disease 01/02/2020 11/29/2020 Shortness of breath 11/23/2019 11/29/2020 Meralgia paresthetica of right side 02/20/2018 06/09/2018 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 12/07/2016 0 11/29/2020 Last [...] of this encounter (statuses as of 09/12/2021) [facility] Narrative* Problem Noted Date Resolved Date Acute renal failure superimp osed on stage 4 chronic kidney disease 01/02/2020 11/29/2020 Shortness of breath 11/23/2019 11/29/2020 Meralgia paresthetica of right side 02/20/2018 06/09/2018 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 12/07/2016 0 11/29/2020 Last [...] of this encounter (statuses as of 09/22/2021) [facility]ative* [...] of this encounter (statuses as of 09/26/2021) [facility] Narrative* Problem Noted Date Resolved Date Acute renal failure superimp osed on stage 4 chronic kidney disease 01/02/2020 11/29/2020 Shortness of breath 11/23/2019 11/29/2020 Meralgia paresthetica of right side 02/20/2018 06/09/2018 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 12/07/2016 0 11/29/2020 Last [...] of this encounter (statuses as of 09/27/2021) [facility] Narrative* Problem Noted Date Resolved Date Acute renal failure superimp osed on stage 4 chronic kidney disease 01/02/2020 11/29/2020 Shortness of breath 11/23/2019 11/29/2020 Meralgia paresthetica of right side 02/20/2018 06/09/2018 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 12/07/2016 0 11/29/2020 Last [...] of this encounter (statuses as of 09/28/2021) [facility] Narrative* Problem Noted Date Resolved Date Acute renal failure superimp osed on stage 4 chronic kidney disease 01/02/2020 11/29/2020 Shortness of breath 11/23/2019 11/29/2020 Meralgia paresthetica of right side 02/20/2018 06/09/2018 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 12/07/2016 0 11/29/2020 Last [...] of this encounter (statuses as of 09/28/2021) [facility] Narrative* Problem Noted Date Resolved Date Acute renal failure superimp osed on stage 4 chronic kidney disease 01/02/2020 11/29/2020 Shortness of breath 11/23/2019 11/29/2020 Meralgia paresthetica of right side 02/20/2018 06/09/2018 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 12/07/2016 0 11/29/2020 Last [...] of this encounter (statuses as of 10/09/2021) [facility]ative* Problem Noted Date Resolved Date Acute renal failure superimp osed on stage 4 chronic kidney disease 01/02/2020 11/29/2020 Shortness of breath 11/23/2019 11/29/2020 Meralgia paresthetica of right side 02/20/2018 06/09/2018 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 12/07/2016 0 11/29/2020 Last [...] of this encounter (statuses as of 10/12/2021) [facility]* Problem Noted Date Resolved Date Acute renal failure superimp osed on stage 4 chronic kidney disease 01/02/2020 11/29/2020 Shortness of breath 11/23/2019 11/29/2020 Meralgia paresthetica of right side 02/20/2018 06/09/2018 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 12/07/2016 0 11/29/2020 Last [...] of this encounter (statuses as of 10/20/2021) [facility]ative* Problem Noted Date Resolved Date Acute renal failure superimp osed on stage 4 chronic kidney disease 01/02/2020 11/29/2020 Shortness of breath 11/23/2019 11/29/2020 Meralgia paresthetica of right side 02/20/2018 06/09/2018 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 12/07/2016 0 11/29/2020 Last [...] of this encounter (statuses as of 10/20/2021) [facility]* [...] of this encounter (statuses as of 10/21/2021) [facility]ative* Problem Noted Date Resolved Date Acute renal failure superimp osed on stage 4 chronic kidney disease 01/02/2020 11/29/2020 Shortness of breath 11/23/2019 11/29/2020 Meralgia paresthetica of right side 02/20/2018 06/09/2018 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 12/07/2016 0 11/29/2020 Last [...] of this encounter (statuses as of 10/23/2021) [facility] Past [facility] Narrative* Problem Noted Date Resolved Date Acute renal failure superimp osed on stage 4 chronic kidney disease 01/02/2020 11/29/2020 Shortness of breath 11/23/2019 11/29/2020 Meralgia paresthetica of right side 02/20/2018 06/09/2018 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 12/07/2016 0 11/29/2020 Last [...] of this encounter (statuses as of 11/02/2021) [facility]ative* [...] of this encounter (statuses as of 11/07/2021) [facility] Narrative* Problem Noted Date Resolved Date Acute renal failure superimp osed on stage 4 chronic kidney disease 01/02/2020 11/29/2020 Shortness of breath 11/23/2019 11/29/2020 Meralgia paresthetica of right side 02/20/2018 06/09/2018 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 12/07/2016 0 11/29/2020 Last [...] of this encounter (statuses as of 11/15/2021) [facility]ative* [...] of this encounter (statuses as of 11/27/2021) [facility] Narrative* Problem Noted Date Resolved Date Acute renal failure superimp osed on stage 4 chronic kidney disease 01/02/2020 11/29/2020 Shortness of breath 11/23/2019 11/29/2020 Meralgia paresthetica of right side 02/20/2018 06/09/2018 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 12/07/2016 0 11/29/2020 Last [...] of this encounter (statuses as of 12/04/2021) [facility] Narrative* [...] of this encounter (statuses as of 12/11/2021) [facility] Narrative* Problem Noted Date Resolved Date Acute renal failure superimp osed on stage 4 chronic kidney disease 01/02/2020 11/29/2020 Shortness of breath 11/23/2019 11/29/2020 Meralgia paresthetica of right side 02/20/2018 06/09/2018 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 12/07/2016 0 11/29/2020 Last [...] of this encounter (statuses as of 12/12/2021) [facility]ative* [...] of this encounter (statuses as of 12/13/2021) [facility]ative* Problem Noted Date Resolved Date Acute renal failure superimp osed on stage 4 chronic kidney disease 01/02/2020 11/29/2020 Shortness of breath 11/23/2019 11/29/2020 Meralgia paresthetica of right side 02/20/2018 06/09/2018 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 12/07/2016 0 11/29/2020 Last [...] of this encounter (statuses as of 01/01/2022) [facility] N[facility]ative* Problem Noted Date Resolved Date Acute renal failure superimp osed on stage 4 chronic kidney disease 01/02/2020 11/29/2020 Shortness of breath 11/23/2019 11/29/2020 Meralgia paresthetica of right side 02/20/2018 06/09/2018 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 12/07/2016 0 11/29/2020 Last [...] of this encounter (statuses as of 01/01/2022) [facility]* [...] of this encounter (statuses as of 01/01/2022) [facility]* [...] of this encounter (statuses as of 01/19/2022) [facility]* [...] of this encounter (statuses as of 01/24/2022) [facility]* Problem Noted Date Resolved Date Acute renal failure superimp osed on stage 4 chronic kidney disease 01/02/2020 11/29/2020 Shortness of breath 11/23/2019 11/29/2020 Meralgia paresthetica of right side 02/20/2018 06/09/2018 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 12/07/2016 0 11/29/2020 Last [...] of this encounter (statuses as of 01/26/2022) [facility]* [...] of this encounter (statuses as of 01/29/2022) [facility]* [...] of this encounter (statuses as of 02/01/2022) [facility]* [...] of this encounter (statuses as of 02/05/2022) [facility]* Problem Noted Date Resolved Date Acute renal failure superimp osed on stage 4 chronic kidney disease 01/02/2020 11/29/2020 Shortness of breath 11/23/2019 11/29/2020 Meralgia paresthetica of right side 02/20/2018 06/09/2018 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 12/07/2016 0 11/29/2020 Last [...] of this encounter (statuses as of 02/05/2022) [facility]* Problem Noted Date Resolved Date Acute renal failure superimp osed on stage 4 chronic kidney disease 01/02/2020 11/29/2020 Shortness of breath 11/23/2019 11/29/2020 Meralgia paresthetica of right side 02/20/2018 06/09/2018 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 12/07/2016 0 11/29/2020 Last [...] of this encounter (statuses as of 02/09/2022) [facility]* Problem Noted Date Resolved Date Acute renal failure superimp osed on stage 4 chronic kidney disease 01/02/2020 11/29/2020 Shortness of breath 11/23/2019 11/29/2020 Meralgia paresthetica of right side 02/20/2018 06/09/2018 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 12/07/2016 0 11/29/2020 Last [...] of this encounter (statuses as of 02/23/2022) [facility]* Problem Noted Date Resolved Date Acute renal failure superimp osed on stage 4 chronic kidney disease 01/02/2020 11/29/2020 Shortness of breath 11/23/2019 11/29/2020 Meralgia paresthetica of right side 02/20/2018 06/09/2018 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 12/07/2016 0 11/29/2020 Last [...] of this encounter (statuses as of 03/19/2022) [facility]* Problem Noted Date Resolved Date Acute renal failure superimp osed on stage 4 chronic kidney disease 01/02/2020 11/29/2020 Shortness of breath 11/23/2019 11/29/2020 Meralgia paresthetica of right side 02/20/2018 06/09/2018 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 12/07/2016 0 11/29/2020 Last [...] of this encounter (statuses as of 04/19/2022) [facility]* Problem Noted Date Resolved Date Acute renal failure superimp osed on stage 4 chronic kidney disease 01/02/2020 11/29/2020 Shortness of breath 11/23/2019 11/29/2020 Meralgia paresthetica of right side 02/20/2018 06/09/2018 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 12/07/2016 0 11/29/2020 Last [...] of this encounter (statuses as of 04/20/2022) [facility]* Problem Noted Date Resolved Date Acute renal failure superimp osed on stage 4 chronic kidney disease 01/02/2020 11/29/2020 Shortness of breath 11/23/2019 11/29/2020 Meralgia paresthetica of right side 02/20/2018 06/09/2018 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 12/07/2016 0 11/29/2020 Last [...] of this encounter (statuses as of 04/24/2022) [facility]* [...] of this encounter (statuses as of 05/02/2022) [facility]* Problem Noted Date Resolved Date Acute renal failure superimp osed on stage 4 chronic kidney disease 01/02/2020 11/29/2020 Shortness of breath 11/23/2019 11/29/2020 Meralgia paresthetica of right side 02/20/2018 06/09/2018 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 12/07/2016 0 11/29/2020 Last [...] neoplasm of other specified sites of s [place] 11/03/2004 11/03/2004 documented as of this encounter (statuses as of 05/03/2022) [facility]* Problem Noted Date Resolved Date Acute renal failure superimp osed on stage 4 chronic kidney disease 01/02/2020 11/29/2020 Shortness of breath 11/23/2019 11/29/2020 Meralgia paresthetica of right side 02/20/2018 06/09/2018 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 12/07/2016 0 11/29/2020 Last [...] of this encounter (statuses as of 05/03/2022) [facility]* Problem Noted Date Resolved Date Acute renal failure superimp osed on stage 4 chronic kidney disease 01/02/2020 11/29/2020 Shortness of breath 11/23/2019 11/29/2020 Meralgia paresthetica of right side 02/20/2018 06/09/2018 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 12/07/2016 0 11/29/2020 Last [...] of this encounter (statuses as of 05/07/2022) [facility]* [...] of this encounter (statuses as of 05/16/2022) [facility]* [...] of this encounter (statuses as of 05/21/2022) [facility]* [...] of this encounter (statuses as of 05/23/2022) [facility]* Problem Noted Date Resolved Date Acute renal failure superimp osed on stage 4 chronic kidney disease 01/02/2020 11/29/2020 Shortness of breath 11/23/2019 11/29/2020 Meralgia paresthetica of right side 02/20/2018 06/09/2018 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 12/07/2016 0 11/29/2020 Last [...] of this encounter (statuses as of 05/23/2022) [facility]* Problem Noted Date Resolved Date Acute renal failure superimp osed on stage 4 chronic kidney disease 01/02/2020 11/29/2020 Shortness of breath 11/23/2019 11/29/2020 Meralgia paresthetica of right side 02/20/2018 06/09/2018 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 12/07/2016 0 11/29/2020 Last [...] of this encounter (statuses as of 05/23/2022) [facility]* Problem Noted Date Resolved Date Acute renal failure superimp osed on stage 4 chronic kidney disease 01/02/2020 11/29/2020 Shortness of breath 11/23/2019 11/29/2020 Meralgia paresthetica of right side 02/20/2018 06/09/2018 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 12/07/2016 0 11/29/2020 Last [...] of this encounter (statuses as of 05/23/2022) [facility] History of Past illness Narrative* Problem Noted Date Resolved Date Acute renal failure superimp osed on stage 4 chronic kidney disease 01/02/2020 11/29/2020 Shortness of breath 11/23/2019 11/29/2020 Meralgia paresthetica of right side 02/20/2018 06/09/2018 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 12/07/2016 0 11/29/2020 Last [...] of this encounter (statuses as of 05/29/2022) [facility] History of Past illness Narrative* [...] of this encounter (statuses as of 05/31/2022) [facility] History of Past illness Narrative* [...] of this encounter (statuses as of 06/14/2022) [facility] History of Past illness Narrative* [...] of this encounter (statuses as of 06/15/2022) [facility] History of Past illness Narrative* Problem Noted Date Resolved Date Acute renal failure superimp osed on stage 4 chronic kidney disease 01/02/2020 11/29/2020 Shortness of breath 11/23/2019 11/29/2020 Meralgia paresthetica of right side 02/20/2018 06/09/2018 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 12/07/2016 0 11/29/2020 Last [...] neoplasm of other specified sites of sandor amyes 11/03/2004 11/03/2004 documented as of this encounter (statuses as of 06/22/2022) [facility] History of Past illness Narrative* Problem Noted Date Resolved Date Acute renal failure superimp osed on stage 4 chronic kidney disease 01/02/2020 11/29/2020 Shortness of breath 11/23/2019 11/29/2020 Meralgia paresthetica of right side 02/20/2018 06/09/2018 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 12/07/2016 0 11/29/2020 Last [...] of this encounter (statuses as of 06/27/2022) [facility] Narrative* [...] of this encounter (statuses as of 07/05/2022) [facility] History of Past illness Narrative* Problem Noted Date Resolved Date Acute renal failure superimp osed on stage 4 chronic kidney disease 01/02/2020 11/29/2020 Shortness of breath 11/23/2019 11/29/2020 Meralgia paresthetica of right side 02/20/2018 06/09/2018 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 12/07/2016 0 11/29/2020 Last [...] of this encounter (statuses as of 07/11/2022) [facility] Narrative* Problem Noted Date Resolved Date Acute renal failure superimp osed on stage 4 chronic kidney disease 01/02/2020 11/29/2020 Shortness of breath 11/23/2019 11/29/2020 Meralgia paresthetica of right side 02/20/2018 06/09/2018 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 12/07/2016 0 11/29/2020 Last [...] of this encounter (statuses as of 07/12/2022) [facility] Past illness Narrative* Problem Noted Date Resolved Date Acute renal failure superimp osed on stage 4 chronic kidney disease 01/02/2020 11/29/2020 Shortness of breath 11/23/2019 11/29/2020 Meralgia paresthetica of right side 02/20/2018 06/09/2018 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 12/07/2016 0 11/29/2020 Last [...] of this encounter (statuses as of 07/13/2022) [facility] Narrative* [...] of this encounter (statuses as of 08/23/2022) [facility] Narrative* [...] of this encounter (statuses as of 08/29/2022) [facility] Narrative* [...] of this encounter (statuses as of 08/30/2022) [facility] Narrative* [...] of this encounter (statuses as of 08/30/2022) [facility] of Past illness Narrative* Problem Noted Date Diagnosed Date Resolved Date Acute renal failure superimp osed on stage 4 chronic kidney disease 01/02/2020 11/29/2020 Shortness of breath 11/23/2019 11/30/19 Meralgia paresthetica of right side 02/20/2018 06/09/2018 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 12/07/2016 11/29/2020 Last Assessment [...] of this encounter (statuses as of 09/26/2022) [facility] illness Narrative* Problem Noted Date Diagnosed Date Resolved Date Acute renal failure superimp osed on stage 4 chronic kidney disease 01/02/2020 11/29/2020 Shortness of breath 11/23/2019 11/30/19 21 Meralgia paresthetica of right side 02/20/2018 06/09/2018 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 12/07/2016 11/29/2020 Last Assessment [...] of this encounter (statuses as of 09/27/2022) [facility] Narrative* Problem Noted Date Diagnosed Date Resolved Date Acute renal failure superimp osed on stage 4 chronic kidney disease 01/02/2020 11/29/2020 Shortness of breath 11/23/2019 11/30/19 21 Meralgia paresthetica of right side 02/20/2018 06/09/2018 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 12/07/2016 11/29/2020 Last Assessment [...] of this encounter (statuses as of 10/24/2022) [facility] Narrative* [...] of this encounter (statuses as of 10/26/2022) [facility]arrative* [...] of this encounter (statuses as of 10/27/2022) [facility] Narrative* [...] of this encounter (statuses as of 10/28/2022) [facility] Narrative* [...] of this encounter (statuses as of 11/07/2022) [facility] Narrative* [...] of this encounter (statuses as of 11/21/2022) [facility] Narrative* [...] of this encounter (statuses as of 11/23/2022) [facility] illness Narrative* [...] of this encounter (statuses as of 11/27/2022) [facility] of Past illness Narrative* Problem Noted Date Diagnosed Date Resolved Date Acute renal failure superimp osed on stage 4 chronic kidney disease 01/02/2020 11/29/2020 Shortness of breath 11/23/2019 11/30/19 Meralgia paresthetica of right side 02/20/2018 06/09/2018 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 12/07/2016 11/29/2020 Last Assessment [...] of this encounter (statuses as of 12/19/2022) [facility] History of Past illness Narrative* Problem Noted Date Diagnosed Date Resolved Date Acute renal failure superimp osed on stage 4 chronic kidney disease 01/02/2020 11/29/2020 Shortness of breath 11/23/2019 11/30/19 21 Meralgia paresthetica of right side 02/20/2018 06/09/2018 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 12/07/2016 11/29/2020 Last Assessment [...] of this encounter (statuses as of 12/20/2022) [facility] of Past illness Narrative* Problem Noted Date Diagnosed Date Resolved Date Acute renal failure superimp osed on stage 4 chronic kidney disease 01/02/2020 11/29/2020 Shortness of breath 11/23/2019 11/30/19 21 Meralgia paresthetica of right side 02/20/2018 06/09/2018 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 12/07/2016 11/29/2020 Last Assessment [...] of this encounter (statuses as of 12/25/2022) [facility] Narrative* [...] of this encounter (statuses as of 12/27/2022) [facility] of Past illness Narrative* Problem Noted Date Diagnosed Date Resolved Date Acute renal failure superimp osed on stage 4 chronic kidney disease 01/02/2020 11/29/2020 Shortness of breath 11/23/2019 11/30/19 Meralgia paresthetica of right side 02/20/2018 06/09/2018 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 12/07/2016 11/29/2020 Last Assessment [...] of this encounter (statuses as of 01/05/2023) [facility] illness Narrative* Problem Noted Date Diagnosed Date Resolved Date Acute renal failure superimp osed on stage 4 chronic kidney disease 01/02/2020 11/29/2020 Shortness of breath 11/23/2019 11/30/19 21 Meralgia paresthetica of right side 02/20/2018 06/09/2018 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 12/07/2016 11/29/2020 Last Assessment [...] of this encounter (statuses as of 01/06/2023) [facility] Narrative* [...] of this encounter (statuses as of 01/06/2023) [facility] Narrative* [...] of this encounter (statuses as of 01/09/2023) [facility] History of Past illness Narrative* Problem Noted Date Diagnosed Date Resolved Date Acute renal failure superimp osed on stage 4 chronic kidney disease 01/02/2020 11/29/2020 Shortness of breath 11/23/2019 11/30/19 21 Meralgia paresthetica of right side 02/20/2018 06/09/2018 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 12/07/2016 11/29/2020 Last Assessment [...] of this encounter (statuses as of 01/10/2023) [facility] Narrative* [...] of this encounter (statuses as of 01/10/2023) [facility] Past illness Narrative* Problem Noted Date Diagnosed Date Resolved Date Acute renal failure superimp osed on stage 4 chronic kidney disease 01/02/2020 11/29/2020 Shortness of breath 11/23/2019 11/30/19 Meralgia paresthetica of right side 02/20/2018 06/09/2018 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 12/07/2016 11/29/2020 Last Assessment [...] of this encounter (statuses as of 01/11/2023) [facility] History of Past illness Narrative* Problem Noted Date Diagnosed Date Resolved Date Acute renal failure superimp osed on stage 4 chronic kidney disease 01/02/2020 11/29/2020 Shortness of breath 11/23/2019 11/30/19 21 Meralgia paresthetica of right side 02/20/2018 06/09/2018 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 12/07/2016 11/29/2020 Last Assessment [...] of this encounter (statuses as of 01/11/2023) [facility] History of Past illness Narrative* Problem Noted Date Diagnosed Date Resolved Date Acute renal failure superimp osed on stage 4 chronic kidney disease 01/02/2020 11/29/2020 Shortness of breath 11/23/2019 11/30/19 21 Meralgia paresthetica of right side 02/20/2018 06/09/2018 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 12/07/2016 11/29/2020 Last Assessment [...] of this encounter (statuses as of 01/15/2023) [facility] Narrative* [...] of this encounter (statuses as of 01/15/2023) [facility] Past illness Narrative* Problem Noted Date Diagnosed Date Resolved Date Acute renal failure superimp osed on stage 4 chronic kidney disease 01/02/2020 11/29/2020 Shortness of breath 11/23/2019 11/30/19 Meralgia paresthetica of right side 02/20/2018 06/09/2018 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 12/07/2016 11/29/2020 Last Assessment [...] of this encounter (statuses as of 01/15/2023) [facility] of Past illness Narrative* Problem Noted Date Diagnosed Date Resolved Date Acute renal failure superimp osed on stage 4 chronic kidney disease 01/02/2020 11/29/2020 Shortness of breath 11/23/2019 11/30/19 21 Meralgia paresthetica of right side 02/20/2018 06/09/2018 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 12/07/2016 11/29/2020 Last Assessment [...] of this encounter (statuses as of 01/17/2023) [facility] Past illness Narrative* Problem Noted Date Diagnosed Date Resolved Date Acute renal failure superimp osed on stage 4 chronic kidney disease 01/02/2020 11/29/2020 Shortness of breath 11/23/2019 11/30/19 21 Meralgia paresthetica of right side 02/20/2018 06/09/2018 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 12/07/2016 11/29/2020 Last Assessment [...] of this encounter (statuses as of 01/18/2023) [facility] of Past illness Narrative* Problem Noted Date Diagnosed Date Resolved Date Acute renal failure superimp osed on stage 4 chronic kidney disease 01/02/2020 11/29/2020 Shortness of breath 11/23/2019 11/30/19 21 Meralgia paresthetica of right side 02/20/2018 06/09/2018 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 12/07/2016 11/29/2020 Last Assessment [...] of this encounter (statuses as of 01/22/2023) [facility] of Past illness Narrative* Problem Noted Date Diagnosed Date Resolved Date Acute renal failure superimp osed on stage 4 chronic kidney disease 01/02/2020 11/29/2020 Shortness of breath 11/23/2019 11/30/19 21 [place] paresthetica of right side 02/20/2018 06/09/2018 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 12/07/2016 11/29/2020 Last Assessment [...] of this encounter (statuses as of 02/12/2023) [facility] of Past illness Narrative* Problem Noted Date Diagnosed Date Resolved Date Acute renal failure superimp osed on stage 4 chronic kidney disease 01/02/2020 11/29/2020 Shortness of breath 11/23/2019 11/30/19 Meralgia paresthetica of right side 02/20/2018 06/09/2018 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 12/07/2016 11/29/2020 Last Assessment [...] of this encounter (statuses as of 02/12/2023) [facility] Diagnosis Type 2 diabetes mellitus with microalbuminuria, with long-term current use of insulin ([facility])- Primary Medication management Encounter for long-term (current) use of other medications [facility] Diagnosis Bilateral wrist pain- Primary Pain in joint, forearm Chronic pain of left wrist Acute pain of right wrist [facility] Diagnosis Acute pain of right wrist [facility] Diagnosis Type 2 diabetes mellitus with hyperosmolar coma, with long-term current use of insulin ([facility])- Primary [facility] Diagnosis Bilateral wrist pain Pain in joint, forearm Chronic pain of left wrist Acute pain of right wrist [facility] Diagnosis Redness and swelling of thigh- Primary Pain of right lower extremity Primary hypertension Unspecified essential hypertension Fever, unspecified fever cause Nausea Nausea alone Swelling of limb [facility] Diagnosis Lump of right thigh- Primary Tenderness of right lower extremity [facility] Diagnosis Lump of right thigh- Primary Localized swelling, mass, or lump of left upper extremity [facility] Diagnosis Localized swelling, mass, or lump of right lower extremity [facility] Diagnosis Type 2 diabetes mellitus with microalbuminuria, with long-term current use of insulin ([facility])- Primary Medication management Encounter for long-term (current) use of other medications [facility] Diagnosis CKD (chronic kidney disease) stage 4, GFR 15-29 ml/min ([facility])- Primary Chronic kidney disease, Stage IV (severe) [facility] Diagnosis Localized swelling, mass, or lump of right lower extremity [facility] Diagnosis Lump of right thigh- Primary Type 2 diabetes mellitus with hyperosmolar coma, with long-term current use of insulin ([facility]) [facility] Diagnosis Type 2 diabetes mellitus with microalbuminuria, with long-term current use of insulin (HCC)- Primary [facility] Diagnosis Abnormal vaginal bleeding- Primary Other specified noninflammatory disorder of vagina Chronic edema Edema Sleep disturbances Sleep disturbance, unspecified Acute otitis externa of right ear, unspecified type Pelvic cramping Unspecified symptom associated with female genital organs [facility] Diagnosis Abnormal vaginal bleeding- Primary Other specified noninflammatory disorder of vagina [facility] Diagnosis Abnormal vaginal bleeding Other specified noninflammatory disorder of vagina [facility] Diagnosis Type 2 diabetes mellitus with microalbuminuria, with long-term current use of insulin (HCC)- Primary Medication management Encounter for long-term (current) use of other medications [facility] Diagnosis History of recent hospitalization- Primary Personal history of unspecified disease Diarrhea, unspecified type Lower abdominal pain Abdominal pain, other specified site Hyperkalemia Hyperpotassemia Cellulitis, unspecified cellulitis site Anemia of chronic kidney failure, stage 4 (severe) ([facility]) [facility] Diagnosis Diarrhea, unspecified type- Primary [facility] Diagnosis Acquired hypothyroidism Unspecified hypothyroidism [facility] Diagnosis Chronic edema Edema [facility] Diagnosis Diarrhea, unspecified type- Primary Right wrist pain Pain in joint, forearm [facility] Diagnosis Dermatitis Contact dermatitis and other eczema, due to unspecified cause [facility] Diagnosis Dermatitis- Primary Contact dermatitis and other eczema, due to unspecified cause Itching Unspecified pruritic disorder [facility] Diagnosis 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)- Primary Type II or unspecified type diabetes mellitus with renal manifestations, not stated as uncontrolled Pre-transplant evaluation for ESRD (end stage renal disease) Other specified pre-operative examination Hypertension, unspecified type [facility] Diagnosis Disorder of liver- Primary Unspecified disorder of liver Liver replaced by transplant (HCC) Liver replaced by transplant [facility] Diagnosis Type 2 diabetes mellitus with hyperosmolarity 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, with long-term current use of insulin (HCC)- Primary End stage kidney disease (HCC) End stage renal disease Dizziness Dizziness and giddiness Hypotension, unspecified hypotension type Other fatigue Acquired hypothyroidism Unspecified hypothyroidism Chronic diarrhea Diarrhea Liver replaced by transplant (HCC) Liver replaced by transplant documented in this encounter [facility] [place] note* Diagnosis Diarrhea, unspecified type- Primary [facility] Diagnosis Encounter for screening mammogram for breast cancer documented [facility] this [facility]* Diagnosis Hypothyroidism, unspecified type [facility] Diagnosis Pre-transplant evaluation for kidney transplant- Primary Other specified pre-operative examination documented in this encounter [facility] [place] note* Diagnosis Type 2 diabetes mellitus with microalbuminuria, with long-term current use of insulin (HCC)- Primary [facility] Diagnosis Type 2 diabetes mellitus with hyperosmolarity 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, with long-term current use of insulin (HCC)- Primary [facility]* Diagnosis Type 2 diabetes mellitus with microalbuminuria, with long-term current use of insulin (HCC)- Primary [facility] Diagnosis Hypothyroidism, unspecified type Diarrhea, unspecified type Sleep disturbances Sleep disturbance, unspecified Mixed hyperlipidemia Chronic edema Edema [facility]* Diagnosis Right wrist pain Pain in joint, forearm [facility]* Diagnosis Type 2 diabetes mellitus with hyperosmolarity 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, with long-term current use of insulin (HCC)- Primary [facility] Diagnosis Pre-transplant evaluation for kidney transplant- Primary Other specified pre-operative examination [facility] Diagnosis Chronic pain of both knees- Primary [facility] Diagnosis Pre-transplant evaluation for ESRD (end stage renal disease)- Primary Other specified pre-operative examination Liver transplant recipient (HCC) ESRD on dialysis (HCC) End stage renal disease Coronary artery disease involving [place] coronary artery of [place] heart without angina pectoris Type 2 diabetes mellitus with hyperosmolarity 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, with long-term current use of insulin ([facility]) Primary hypertension Unspecified essential [facility]waiting [facility] transplant- Primary Awaiting organ transplant status Dietary counseling and surveillance Dietary surveillance and counseling [facility] Diagnosis Type 2 diabetes mellitus with hyperosmolarity 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, with long-term current use of insulin (HCC)- Primary [facility] Dermatitis Contact dermatitis and other eczema, due to unspecified cause [facility] Diagnosis Pre-transplant evaluation for end stage renal disease- Primary Other specified pre-operative examination Pre-operative cardiovascular examination History of heart artery stent Postsurgical percutaneous transluminal coronary angioplasty status Awaiting organ transplant Awaiting organ transplant status [facility] Diagnosis Rash- Primary Rash and other nonspecific skin eruption Itching Unspecified pruritic disorder [facility] Left hip pain- Primary Pain in joint, pelvic region and thigh Fall, initial encounter [facility] Diagnosis Type 2 diabetes mellitus with hyperosmolarity 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, with long-term current use of insulin (HCC) [facility] Diagnosis Left knee pain, unspecified chronicity- Primary Left hip pain Pain in joint, pelvic region and thigh [facility] Diagnosis Pre-transplant evaluation for kidney transplant- Primary Other specified pre-operative examination [facility] Diagnosis Nausea- Primary Nausea alone Epigastric pain Abdominal pain, epigastric Type 2 diabetes mellitus with hyperosmolarity 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, with long-term current use of insulin (HCC) [facility] Diagnosis Type 2 diabetes mellitus with hyperosmolarity 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, with long-term current use of insulin (HCC) [facility] Diagnosis Encounter for screening for osteoporosis Special screening for osteoporosis Asymptomatic postmenopausal status [facility] Encounter for screening mammogram for breast cancer [facility] Diagnosis Epigastric pain- Primary Abdominal pain, epigastric Nausea Nausea alone Left knee pain, unspecified chronicity Medication management Encounter for long-term (current) use of other medications Encounter for immunization Need for other specified prophylactic vaccination against single bacterial disease [facility] Diagnosis Liver replaced by transplant (HCC)- Primary Liver replaced by transplant documented in this encounter [facility] [place] note* Diagnosis Preop cardiovascular exam- Primary Pre-operative cardiovascular examination documented in this encounter [facility] note* Diagnosis Sleep disturbances Sleep disturbance, unspecified documented in this encounter [facility] for referral (narrative)* Diagnostic Procedure Only (Routine) - Closed Specialty Diagnoses / Procedures Referred By Contac t Referred To Contact XR IMAGING Diagnoses Bilateral wrist pain Chronic pain of left wrist Acute pain of right wrist Procedures XR HAND GENERAL 3V PA/LAT/OBL BILATERAL RADEX HAND MINIMUM 3 VIEWS Josse Lance APRN.LOADING 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 [address] [place] [address] Xr Imaging Referral ID Status Reason Start Date Expiration Date V isits Requested Visits Authorized [id number] Closed Auto-Generate d Referral 07/03/2021 08/02/2022 1 1 * Consult, Test, Treat (Routine) - Pending Review Specialty Diagnoses / Procedures Referred By Contac t Referred To Contact Orthopedics Diagnoses Bilateral wrist pain Chronic pain of left wrist Acute pain of right wrist Procedures CONSULT TO ORTHOPAEDICS OFFICE/OUTPATIENT [facility] 60-74 MINUTES Josse Lance APRN.LOADING 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 [address] [place] [address] Referral ID Status Reason Start Date Expiration Date Visits Requested Visits Authorized [id number] Pending Review PCP Requested Referral 07/03/2021 07/03/2022 1 1 * Diagnostic Procedure Only (Routine) - Closed Specialty Diagnoses / Procedures Referred By Contac t Referred To Contact XR IMAGING Diagnoses Bilateral wrist pain Chronic pain of left wrist Acute pain of right wrist Procedures XR HAND GENERAL 3V PA/LAT/OBL LEFT RADEX HAND MINIMUM 3 VIEWS Josse Lance APRN.LOADING 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 [address] [place] [address] Xr Imaging Referral ID Status Reason Start Date Expiration Date V isits Requested Visits Authorized [id number] Closed Auto-Generate d Referral 07/03/2021 08/02/2022 1 1 * Diagnostic Procedure Only (Routine) - Closed Specialty Diagnoses / Procedures Referred By Contac t Referred To Contact XR IMAGING Diagnoses Bilateral wrist pain Chronic pain of left wrist Acute pain of right wrist Procedures XR HAND GENERAL 3V PA/LAT/OBL RIGHT RADEX HAND MINIMUM 3 VIEWS Josse Lance, DEVAUGHN.LOADING 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 [address] [place] [address] Xr Imaging Referral ID Status Reason Start Date Expiration Date V isits Requested Visits Authorized [id number] Closed Auto-Generate d Referral 07/03/2021 08/02/2022 1 1 [facility] for referral (narrative)* Outpatient Procedure (Urgent) - Authorized Specialty Diagnoses / Procedures Referred By Contac t Referred To Contact [facility] Diagnoses Redness and swelling of thigh Swelling of limb Procedures US LEG VEIN DVT UNL VAS LAB DUP-SCAN XTR VEINS UNILATERAL/LIMITED STUDY Jame Hunt MD [address] [place] [address] [facility] [address] [place] [address] Referral ID Status Reason Start Date Expiration Date Visits Requested Visits Authorized [id number] Authorized Auto-Generat ed Referral 08/14/2021 03/03/2022 1 1 [facility] for referral (narrative)* Diagnostic Procedure Only (Routine) - Authorized Specialty Diagnoses / Procedures Referred By Contac t Referred To Contact US IMAGING Diagnoses Lump of right thigh Tenderness of right lower extremity Procedures US EXTREMITY MASS/FLUID COLLECTION RT Silva Plasencia APRN.GAS PUMPING STATION OPERATOR [address] [place] [address] Us Imaging Referral ID Status Reason Start Date Expiration Date Visits Requested Visits Authorized [id number] Authorized Auto-Generat ed Referral 08/25/2021 09/24/2022 1 1 [facility] for referral (narrative)* Diagnostic Procedure Only (Routine) - Closed Specialty Diagnoses / Procedures Referred By Contac t Referred To Contact MR IMAGING Diagnoses Localized swelling, mass, or lump of right lower extremity Procedures MRI UPPER LEG WO/W IVCON RT MRI LOWER EXTREM OTH/THN JT W/O & W/Silva Centeon APRN.GAS PUMPING STATION OPERATOR [address] [place] [address] Mr Imaging Referral ID Status Reason Start Date Expiration Date Visits Re quested Visits Authorized [id number] Closed 09/21/2021 10/21/2021 1 1 [facility] for referral (narrative)* Diagnostic Procedure Only (Urgent) - Pending Review Specialty Diagnoses / Procedures Referred By Contac t Referred To Contact US IMAGING Diagnoses Abnormal vaginal bleeding Procedures US FEMALE PELVIS TRANSABD LTD US PELVIC NONOBSTETRIC IMAGE DCMTN LIMITED/F/U Jaci Lucero APRN.GAS PUMPING STATION OPERATOR [address] [place] [address] Us Imaging Referral ID Status Reason Start Date Expiration Date Visits Requested Visits Authorized [id number] Pending Review Auto-Generat ed Referral 10/20/2021 11/19/2022 1 1 * Diagnostic Procedure Only (Routine) - Closed Specialty Diagnoses / Procedures Referred By Contac t Referred To Contact US IMAGING Diagnoses Abnormal vaginal bleeding Procedures US FEMALE PELVIS TRANSABD LTD US PELVIC NONOBSTETRIC IMAGE DCMTN LIMITED/F/U Jaci Lucero APRN.GAS PUMPING STATION OPERATOR [address] [place] [address] Us Imaging Referral ID Status Reason Start Date Expiration Date V isits Requested Visits Authorized [id number] Closed Auto-Generate d Referral 10/20/2021 11/19/2022 1 1 [facility] for referral (narrative)* Diagnostic Procedure Only (Routine) - Closed Specialty Diagnoses / Procedures Referred By Contac t Referred To Contact US IMAGING Diagnoses Abnormal vaginal bleeding Procedures US FEMALE PELVIS TRANSVAG US TRANSVAGINAL Jaci Lucero APRN.GAS PUMPING STATION OPERATOR [address] [place] [address] Us Imaging Referral ID Status Reason Start Date Expiration Date V isits Requested Visits Authorized [id number] Closed Auto-Generate d Referral 10/20/2021 11/19/2022 1 1 [facility] for referral (narrative)* Diagnostic Procedure Only (Routine) - Closed Specialty Diagnoses / Procedures Referred By Contac t Referred To Contact US IMAGING Diagnoses Abnormal vaginal bleeding Procedures US FEMALE PELVIS TRANSVAG US TRANSVAGINAL Jaci Lucero APRN.GAS PUMPING STATION OPERATOR [address] [place] [address] Us Imaging Referral ID Status Reason Start Date Expiration Date V isits Requested Visits Authorized [id number] Closed Auto-Generate d Referral 10/20/2021 11/19/2022 1 1 * Diagnostic Procedure Only (Routine) - Closed Specialty Diagnoses / Procedures Referred By Contac t Referred To Contact US IMAGING Diagnoses Abnormal vaginal bleeding Procedures US FEMALE PELVIS TRANSABD LTD US PELVIC NONOBSTETRIC IMAGE DCMTN LIMITED/F/U Jaci Lucero APRN.GAS PUMPING STATION OPERATOR [address] [place] [address] Us Imaging Referral ID Status Reason Start Date Expiration Date V isits Requested Visits Authorized [id number] Closed Auto-Generate d Referral 10/20/2021 11/19/2022 1 1 [facility] for referral (narrative)* Diagnostic Procedure Only (Routine) - Authorized Specialty Diagnoses / Procedures [facility] Diagnoses Encounter for screening mammogram for breast cancer Procedures JAY SCREENING SCREENING MAMMOGRAPHY BI 2-VIEW BREAST INC Jame Bustos MD [address] [place] [address] Br Imaging [address] [place] [address] Referral ID Status Reason Start Date Expiration Date Visits Requested Visits Authorized [id number] Authorized Auto-Generat ed Referral 05/02/2022 06/01/2023 1 1 [facility] for referral (narrative)* Diagnostic Procedure Only (Urgent) - Closed Specialty Diagnoses / Procedures [facility] To Contact XR IMAGING Diagnoses Left hip pain Fall, initial encounter Procedures XR HIP GENERAL 3V PELV/AP/LAT LEFT RADEX HIP UNILATERAL WITH PELVIS 2-3 VIEWS Erin Plasencia APRN.CNP [address] [place] [address] [place] [address] Referral ID Status Reason Start Date Expiration Date V isits Requested Visits Authorized [id number] Closed Auto-Generate d Referral 11/07/2022 12/07/2023 1 1 Electronically signed by Erin Plasencia FOUR SLIDE MACHINE SETTER.GAS PUMPING STATION OPERATOR at 11/07/2022 12:57 PM EDT [facility] for referral (narrative)* Diagnostic Procedure Only (Routine) - Closed Specialty Diagnoses / Procedures [facility] Referred To Contact XR IMAGING Diagnoses Left hip pain Left knee pain, unspecified chronicity Procedures XR KNEE GENERAL 4V AP BOTH/PA BOTH/LAT/MERC LEFT RADIOLOGIC EXAM KNEE COMPLETE 4/MORE VIEWS Ramin Mack PA-C [address] [place] [address] [place] [address] Referral ID Status Reason Start Date Expiration Date V isits Requested Visits Authorized [id number] Closed Auto-Generate d Referral 11/26/2022 12/26/2023 1 1 * Consult, Test, Treat (Routine) - Pending Review Specialty Diagnoses / Procedures Referred By Ibrahima dick Referred To Contact Orthopedics Diagnoses Left hip pain Left knee pain, unspecified chronicity Procedures CONSULT TO ORTHOPAEDICS OFFICE/OUTPATIENT [facility] HIGH MDM 60-74 MINUTES Charbel Esparza MD [address] [place] [address] Referral ID Status Reason Start Date Expiration Date Visits Requested Visits Authorized [id number] Pending Review PCP Requested Referral 11/26/2022 11/26/2023 1 1 [facility] for referral (narrative)* Diagnostic Procedure Only (Routine) - Closed Specialty Diagnoses / Procedures Referred By Ibrahima dick Referred To Contact BR IMAGING Diagnoses Encounter for screening mammogram for breast cancer Procedures JAY SCREENING SCREENING MAMMOGRAPHY BI 2-VIEW BREAST INC CAD Jame Hunt MD [address] [place] [address] [place] [address] Referral ID Status Reason Start Date Expiration Date V isits Requested Visits Authorized [id number] Closed Auto-Generate d Referral 05/02/2022 06/01/2023 1 1 [facility] for visit Narrative* Diagnostic Procedure Only (Routine) - Closed Specialty Diagnoses / Procedures Referred By Ibrahima dick Referred To Contact MR IMAGING Diagnoses Localized swelling, mass, or lump of right lower extremity Procedures MRI UPPER LEG WO/W IVCON RT MRI LOWER EXTREM OTH/THN JT W/O & W/Silva Centeno APRN.GAS PUMPING STATION OPERATOR [address] [place] [address] Mr Imaging Referral ID Status Reason Start Date Expiration Date Visits Re quested Visits Authorized [id number] Closed 09/21/2021 10/21/2021 1 [facility] Diagnostic Procedure Only (Routine) - Closed Specialty Diagnoses / Procedures Referred By Ibrahima dick Referred To Contact BR IMAGING Diagnoses Encounter for screening mammogram for breast cancer Procedures JAY SCREENING SCREENING MAMMOGRAPHY BI 2-VIEW BREAST INC CAD Jame Hunt MD [address] [place] [address] Br Imaging [address] [place] [address] Referral ID Status Reason Start Date Expiration Date V isits Requested Visits Authorized [id number] Closed Auto-Generate d Referral 05/02/2022 06/01/2023 1 1 [facility] Summary Purpose Family History No Family History Records FoundNo Family History Records FoundNo Family History Records FoundNo Family History Records FoundNo Family History Records Found Advance Directives No Advanced Directives Records FoundDocuments on File Type Date Recorded Patient Steel Chipper Expl anation Advance Directive(s) Advance Directive(s) 04/25/2021 [...] Documents on File Type Date Recorded Patient Steel Chipper Expl anation Advance Directive(s) Advance Directive(s) 04/25/2021 [...] Documents on File Type Date Recorded Patient Steel Chipper Expl anation Advance Directive(s) Advance Directive(s) 07/30/2018 8:17 AM Documents on File Type Date Recorded Patient Steel Chipper Expl anation Advance Directive(s) Advance Directive(s) 07/30/2018 [...] OTH/THN JT W/O & W/CONTR Silva Rowland APRN.GAS PUMPING STATION OPERATOR [address] [place] [address] Mr Imaging Referral ID Status Reason Start Date Expiration Date Visits Requested Visits Authorized [id number] Pending Review Auto-Generat ed Referral 09/06/2021 10/06/2022 1 1 Specialty Diagnoses / Procedures Referred By Ibrahima dick Referred To Contact TRANSPLANT Diagnoses 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) Pre-transplant evaluation for ESRD (end stage renal disease) Hypertension, unspecified type Procedures CONSULT TO [facility] OFFICE/OUTPATIENT [place] HIGH MDM 60-74 MINUTES CHEST X-RAY, FRONT&LAT ECG ROUTINE ECG W/LEAST 12 LDS TRCG ONLY W/O I&R CT ANGIOGRAPHY CHEST W/CONTRAST/NONCONTRAST CT ABDOMEN W & W/O CONTRAST Ricki Dc MD [address] [place] [address] [facility] [address] [address] Referral ID Status Reason Start Date Expiration Date Visits Requested Visits Authorized [id number] Pending Review Financial Clearance Required - [employer] Payor 04/24/2022 04/24/2023 99 99 Specialty Diagnoses / Procedures Referred By Contac t Referred To Contact Gastroenterology Diagnoses Chronic diarrhea Procedures CONSULT TO GASTROENTEROLOGY OFFICE/OUTPATIENT [facility] 60-74 MINUTES Silva Plasencia APRN.GAS PUMPING STATION OPERATOR [address] [place] [address] Referral ID Status Reason Start Date Expiration Date Visits Requested Visits Authorized [id number] Pending Review PCP Requested Referral 05/02/2022 05/02/2023 1 1 Specialty Diagnoses / Procedures Referred By Contac t Referred To Contact Erin Plasencia APRN.GAS PUMPING STATION OPERATOR [address] [place] [address] Referral ID Status Reason Start Date Expiration Date Visits Re quested Visits Authorized [id number] Closed 1 1 Referral ID Status Reason Start Date Expiration Date Visits Re quested Visits Authorized [id number] Closed 1 1 Specialty Diagnoses / Procedures Referred By Contac t Referred To Contact Gastroenterology Diagnoses Pre-transplant evaluation for end stage renal disease Awaiting organ transplant Procedures CONSULT TO GASTROENTEROLOGY OFFICE/OUTPATIENT [facility] 60-74 MINUTES Kel Victoria MD [address] [place] [address] Referral ID Status Reason Start Date Expiration Date Visits Requested Visits Authorized [id number] Pending Review PCP Requested Referral 10/03/2022 09/26/2023 1 1 Specialty Diagnoses / Procedures Referred By Contac t Referred To Contact Cardiology Diagnoses Pre-transplant evaluation for end stage renal disease Pre-operative cardiovascular examination History of heart artery stent Procedures CONSULT TO CARDIOLOGY OFFICE/OUTPATIENT [facility] 60-74 MINUTES Kel Victoria MD [address] [place] [address] Referral ID Status Reason Start Date Expiration Date Visits Requested Visits Authorized [id number] Pending Review PCP Requested Referral 10/03/2022 09/26/2023 1 1 Specialty Diagnoses / Procedures Referred By Contac t Referred To Contact Diagnoses Type 2 diabetes mellitus with hyperosmolarity 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, with long-term current use of insulin (HCC) Ramin Mack PA-C [address] [place] [address] Referral ID Status Reason Start Date Expiration Date Visits Re quested Visits Authorized [id number] Closed 1 1 Specialty Diagnoses / Procedures Referred By Contac t Referred To Contact Diagnoses Pre-transplant evaluation for kidney transplant Procedures CONSULT TO HEPATOLOGY OFFICE/OUTPATIENT [facility] MDM 60-74 MINUTES Kel Victoria MD [address] [place] [address] Referral ID Status Reason Start Date Expiration Date Visits Requested Visits Authorized [id number] Pending Review PCP Requested Referral 3 12/19/2023 1 1 Specialty Diagnoses / Procedures Referred By Contac t Referred To Contact Diagnoses Preop cardiovascular exam Procedures CARDIOVASCULAR MEDICINE OP FOLLOW UP APPT ORDER Lizeth Bey MD [address] [place] [address] Referral ID Status Reason Start Date Expiration Date Visits Requested Visits Authorized [id number] Ref Not Required PCP Requested Referral 01/10/2023 01/10/2024 1 1 Additional Source Comments INFORMATION SOURCE (unrecogn ized section and content) DATE CREATED AUTHOR AUTHOR'S ORGANIZ ATION 12/07/2019 [facility] DATE CREATED AUTHOR AUTHOR'S ORGANIZ ATION 05/03/2020 [facility] DATE CREATED AUTHOR AUTHOR'S ORGANIZ ATION 01/12/2023 [facility] DATE CREATED AUTHOR AUTHOR'S ORGANIZ ATION 04/05/2023 [facility] Source Comments (unrecognize d section and content) In the event this informatio n is protected by the Federal Confidentiality of Alcohol and Drug Abuse Patient Records regulations: The Federal rules restrict any use of the information to criminally investigate or prosecute any alcohol or drug abuse patient.[facility] the event this information is protected by the Federal Confidentiality of Alcohol and Drug Abuse Patient Records regulations: The Federal rules restrict any use of the information to criminally investigate or prosecute any alcohol or drug abuse patient.[facility] the event this information is protected by the Federal Confidentiality of Alcohol and Drug Abuse Patient Records regulations: The Federal rules restrict any use of the information to criminally investigate or prosecute any alcohol or drug abuse patient.[facility] the event this information is protected by the Federal Confidentiality of Alcohol and Drug Abuse Patient Records regulations: The Federal rules restrict any use of the information to criminally investigate or prosecute any alcohol or drug abuse patient.[facility] the event this information is protected by the Federal Confidentiality of Alcohol and Drug Abuse Patient Records regulations: The Federal rules restrict any use of the information to criminally investigate or prosecute any alcohol or drug abuse patient.[facility] the event this information is protected by the Federal Confidentiality of Alcohol and Drug Abuse Patient Records regulations: The Federal rules restrict any use of the information to criminally investigate or prosecute any alcohol or drug abuse patient.[facility] the event this information is protected by the Federal Confidentiality of Alcohol and Drug Abuse Patient Records regulations: The Federal rules restrict any use of the information to criminally investigate or prosecute any alcohol or drug abuse patient.[facility] the event this information is protected by the Federal Confidentiality of Alcohol and Drug Abuse Patient Records regulations: The Federal rules restrict any use of the information to criminally investigate or prosecute any alcohol or drug abuse patient.[facility] the event this information is protected by the Federal Confidentiality of Alcohol and Drug Abuse Patient Records regulations: The Federal rules restrict any use of the information to criminally investigate or prosecute any alcohol or drug abuse patient.[facility] the event this information is protected by the Federal Confidentiality of Alcohol and Drug Abuse Patient Records regulations: The Federal rules restrict any use of the information to criminally investigate or prosecute any alcohol or drug abuse patient.[facility] the event this information is protected by the Federal Confidentiality of Alcohol and Drug Abuse Patient Records regulations: The Federal rules restrict any use of the information to criminally investigate or prosecute any alcohol or drug abuse patient.[facility] the event this information is protected by the Federal Confidentiality of Alcohol and Drug Abuse Patient Records regulations: The Federal rules restrict any use of the information to criminally investigate or prosecute any alcohol or drug abuse patient.[facility] the event this information is protected by the Federal Confidentiality of Alcohol and Drug Abuse Patient Records regulations: The Federal rules restrict any use of the information to criminally investigate or prosecute any alcohol or drug abuse patient.[facility] the event this information is protected by the Federal Confidentiality of Alcohol and Drug Abuse Patient Records regulations: The Federal rules restrict any use of the information to criminally investigate or prosecute any alcohol or drug abuse patient.[facility] the event this information is protected by the Federal Confidentiality of Alcohol and Drug Abuse Patient Records regulations: The Federal rules restrict any use of the information to criminally investigate or prosecute any alcohol or drug abuse patient.[facility] Center[facility] the event this information is protected by the Federal Confidentiality of Alcohol and Drug Abuse Patient Records regulations: The Federal rules restrict any use of the information to criminally investigate or prosecute any alcohol or drug abuse patient.[facility] Center[facility] the event this information is protected by the Federal Confidentiality of Alcohol and Drug Abuse Patient Records regulations: The Federal rules restrict any use of the information to criminally investigate or prosecute any alcohol or drug abuse patient.[facility] Center[facility] the event this information is protected by the Federal Confidentiality of Alcohol and Drug Abuse Patient Records regulations: The Federal rules restrict any use of the information to criminally investigate or prosecute any alcohol or drug abuse patient.[facility] Center[facility] the event this information is protected by the Federal Confidentiality of Alcohol and Drug Abuse Patient Records regulations: The Federal rules restrict any use of the information to criminally investigate or prosecute any alcohol or drug abuse patient.[facility] Center[facility] the event this information is protected by the Federal Confidentiality of Alcohol and Drug Abuse Patient Records regulations: The Federal rules restrict any use of the information to criminally investigate or prosecute any alcohol or drug abuse patient.[facility] Center[facility] the event this information is protected by the Federal Confidentiality of Alcohol and Drug Abuse Patient Records regulations: The Federal rules restrict any use of the information to criminally investigate or prosecute any alcohol or drug abuse patient.[facility] CenterIn the event this information is protected by the Federal Confidentiality of Alcohol and Drug Abuse Patient Records regulations: The Federal rules restrict any use of the information to criminally investigate or prosecute any alcohol or drug abuse patient.[facility] CenterIn the event this information is protected by the Federal Confidentiality of Alcohol and Drug Abuse Patient Records regulations: The Federal rules restrict any use of the information to criminally investigate or prosecute any alcohol or drug abuse patient.[facility] CenterIn the event this information is protected by the Federal Confidentiality of Alcohol and Drug Abuse Patient Records regulations: The Federal rules restrict any use of the information to criminally investigate or prosecute any alcohol or drug abuse patient.[facility] CenterIn the event this information is protected by the Federal Confidentiality of Alcohol and Drug Abuse Patient Records regulations: The Federal rules restrict any use of the information to criminally investigate or prosecute any alcohol or drug abuse patient.[facility] CenterIn the event this information is protected by the Federal Confidentiality of Alcohol and Drug Abuse Patient Records regulations: The Federal rules restrict any use of the information to criminally investigate or prosecute any alcohol or drug abuse patient.[facility] CenterIn the event this information is protected by the Federal Confidentiality of Alcohol and Drug Abuse Patient Records regulations: The Federal rules restrict any use of the information to criminally investigate or prosecute any alcohol or drug abuse patient.[facility] CenterIn the event this information is protected by the Federal Confidentiality of Alcohol and Drug Abuse Patient Records regulations: The Federal rules restrict any use of the information to criminally investigate or prosecute any alcohol or drug abuse patient.[facility] CenterIn the event this information is protected by the Federal Confidentiality of Alcohol and Drug Abuse Patient Records regulations: The Federal rules restrict any use of the information to criminally investigate or prosecute any alcohol or drug abuse patient.[facility] CenterIn the event this information is protected by the Federal Confidentiality of Alcohol and Drug Abuse Patient Records regulations: The Federal rules restrict any use of the information to criminally investigate or prosecute any alcohol or drug abuse patient.[facility] CenterIn the event this information is protected by the Federal Confidentiality of Alcohol and Drug Abuse Patient Records regulations: The Federal rules restrict any use of the information to criminally investigate or prosecute any alcohol or drug abuse patient.[facility] CenterIn the event this information is protected by the Federal Confidentiality of Alcohol and Drug Abuse Patient Records regulations: The Federal rules restrict any use of the information to criminally investigate or prosecute any alcohol or drug abuse patient.[facility] CenterIn the event this information is protected by the Federal Confidentiality of Alcohol and Drug Abuse Patient Records regulations: The Federal rules restrict any use of the information to criminally investigate or prosecute any alcohol or drug abuse patient.[facility] CenterIn the event this information is protected by the Federal Confidentiality of Alcohol and Drug Abuse Patient Records regulations: The Federal rules restrict any use of the information to criminally investigate or prosecute any alcohol or drug abuse patient.[facility] CenterIn the event this information is protected by the Federal Confidentiality of Alcohol and Drug Abuse Patient Records regulations: The Federal rules restrict any use of the information to criminally investigate or prosecute any alcohol or drug abuse patient.[facility] CenterIn the event this information is protected by the Federal Confidentiality of Alcohol and Drug Abuse Patient Records regulations: The Federal rules restrict any use of the information to criminally investigate or prosecute any alcohol or drug abuse patient.[facility] CenterIn the event this information is protected by the Federal Confidentiality of Alcohol and Drug Abuse Patient Records regulations: The Federal rules restrict any use of the information to criminally investigate or prosecute any alcohol or drug abuse patient.[facility] CenterIn the event this information is protected by the Federal Confidentiality of Alcohol and Drug Abuse Patient Records regulations: The Federal rules restrict any use of the information to criminally investigate or prosecute any alcohol or drug abuse patient.[facility] CenterIn the event this information is protected by the Federal Confidentiality of Alcohol and Drug Abuse Patient Records regulations: The Federal rules restrict any use of the information to criminally investigate or prosecute any alcohol or drug abuse patient.[facility] CenterIn the event this information is protected by the Federal Confidentiality of Alcohol and Drug Abuse Patient Records regulations: The Federal rules restrict any use of the information to criminally investigate or prosecute any alcohol or drug abuse patient.[facility] CenterIn the event this information is protected by the Federal Confidentiality of Alcohol and Drug Abuse Patient Records regulations: The Federal rules restrict any use of the information to criminally investigate or prosecute any alcohol or drug abuse patient.[facility] CenterIn the event this information is protected by the Federal Confidentiality of Alcohol and Drug Abuse Patient Records regulations: The Federal rules restrict any use of the information to criminally investigate or prosecute any alcohol or drug abuse patient.[facility] CenterIn the event this information is protected by the Federal Confidentiality of Alcohol and Drug Abuse Patient Records regulations: The Federal rules restrict any use of the information to criminally investigate or prosecute any alcohol or drug abuse patient.[facility] CenterIn the event this information is protected by the Federal Confidentiality of Alcohol and Drug Abuse Patient Records regulations: The Federal rules restrict any use of the information to criminally investigate or prosecute any alcohol or drug abuse patient.[facility] CenterIn the event this information is protected by the Federal Confidentiality of Alcohol and Drug Abuse Patient Records regulations: The Federal rules restrict any use of the information to criminally investigate or prosecute any alcohol or drug abuse patient.[facility] CenterIn the event this information is protected by the Federal Confidentiality of Alcohol and Drug Abuse Patient Records regulations: The Federal rules restrict any use of the information to criminally investigate or prosecute any alcohol or drug abuse patient.[facility]In the event this information is protected by the Federal Confidentiality of Alcohol and Drug Abuse Patient Records regulations: The Federal rules restrict any use of the information to criminally investigate or prosecute any alcohol or drug abuse patient.[facility] CenterIn the event this information is protected by the Federal Confidentiality of Alcohol and Drug Abuse Patient Records regulations: The Federal rules restrict any use of the information to criminally investigate or prosecute any alcohol or drug abuse patient.[facility] CenterIn the event this information is protected by the Federal Confidentiality of Alcohol and Drug Abuse Patient Records regulations: The Federal rules restrict any use of the information to criminally investigate or prosecute any alcohol or drug abuse patient.[facility]In the event this information is protected by the Federal Confidentiality of Alcohol and Drug Abuse Patient Records regulations: The Federal rules restrict any use of the information to criminally investigate or prosecute any alcohol or drug abuse patient.[facility]In the event this information is protected by the Federal Confidentiality of Alcohol and Drug Abuse Patient Records regulations: The Federal rules restrict any use of the information to criminally investigate or prosecute any alcohol or drug abuse patient.[facility]In the event this information is protected by the Federal Confidentiality of Alcohol and Drug Abuse Patient Records regulations: The Federal rules restrict any use of the information to criminally investigate or prosecute any alcohol or drug abuse patient.[facility]In the event this information is protected by the Federal Confidentiality of Alcohol and Drug Abuse Patient Records regulations: The Federal rules restrict any use of the information to criminally investigate or prosecute any alcohol or drug abuse patient.[facility]In the event this information is protected by the Federal Confidentiality of Alcohol and Drug Abuse Patient Records regulations: The Federal rules restrict any use of the information to criminally investigate or prosecute any alcohol or drug abuse patient.[facility]In the event this information is protected by the Federal Confidentiality of Alcohol and Drug Abuse Patient Records regulations: The Federal rules restrict any use of the information to criminally investigate or prosecute any alcohol or drug abuse patient.[facility]In the event this information is protected by the Federal Confidentiality of Alcohol and Drug Abuse Patient Records regulations: The Federal rules restrict any use of the information to criminally investigate or prosecute any alcohol or drug abuse patient.[facility]In the event this information is protected by the Federal Confidentiality of Alcohol and Drug Abuse Patient Records regulations: The Federal rules restrict any use of the information to criminally investigate or prosecute any alcohol or drug abuse patient.[facility]In the event this information is protected by the Federal Confidentiality of Alcohol and Drug Abuse Patient Records regulations: The Federal rules restrict any use of the information to criminally investigate or prosecute any alcohol or drug abuse patient.[facility]In the event this information is protected by the Federal Confidentiality of Alcohol and Drug Abuse Patient Records regulations: The Federal rules restrict any use of the information to criminally investigate or prosecute any alcohol or drug abuse patient.[facility]In the event this information is protected by the Federal Confidentiality of Alcohol and Drug Abuse Patient Records regulations: The Federal rules restrict any use of the information to criminally investigate or prosecute any alcohol or drug abuse patient.[facility]In the event this information is protected by the Federal Confidentiality of Alcohol and Drug Abuse Patient Records regulations: The Federal rules restrict any use of the information to criminally investigate or prosecute any alcohol or drug abuse patient.[facility]In the event this information is protected by the Federal Confidentiality of Alcohol and Drug Abuse Patient Records regulations: The Federal rules restrict any use of the information to criminally investigate or prosecute any alcohol or drug abuse patient.[facility]In the event this information is protected by the Federal Confidentiality of Alcohol and Drug Abuse Patient Records regulations: The Federal rules restrict any use of the information to criminally investigate or prosecute any alcohol or drug abuse patient.[facility]In the event this information is protected by the Federal Confidentiality of Alcohol and Drug Abuse Patient Records regulations: The Federal rules restrict any use of the information to criminally investigate or prosecute any alcohol or drug abuse patient.[facility]In the event this information is protected by the Federal Confidentiality of Alcohol and Drug Abuse Patient Records regulations: The Federal rules restrict any use of the information to criminally investigate or prosecute any alcohol or drug abuse patient.[facility]In the event this information is protected by the Federal Confidentiality of Alcohol and Drug Abuse Patient Records regulations: The Federal rules restrict any use of the information to criminally investigate or prosecute any alcohol or drug abuse patient.[facility]In the event this information is protected by the Federal Confidentiality of Alcohol and Drug Abuse Patient Records regulations: The Federal rules restrict any use of the information to criminally investigate or prosecute any alcohol or drug abuse patient.[facility]In the event this information is protected by the Federal Confidentiality of Alcohol and Drug Abuse Patient Records regulations: The Federal rules restrict any use of the information to criminally investigate or prosecute any alcohol or drug abuse patient.[facility]In the event this information is protected by the Federal Confidentiality of Alcohol and Drug Abuse Patient Records regulations: The Federal rules restrict any use of the information to criminally investigate or prosecute any alcohol or drug abuse patient.[facility]In the event this information is protected by the Federal Confidentiality of Alcohol and Drug Abuse Patient Records regulations: The Federal rules restrict any use of the information to criminally investigate or prosecute any alcohol or drug abuse patient.[facility]In the event this information is protected by the Federal Confidentiality of Alcohol and Drug Abuse Patient Records regulations: The Federal rules restrict any use of the information to criminally investigate or prosecute any alcohol or drug abuse patient.[facility]In the event this information is protected by the Federal Confidentiality of Alcohol and Drug Abuse Patient Records regulations: The Federal rules restrict any use of the information to criminally investigate or prosecute any alcohol or drug abuse patient.[facility]In the event this information is protected by the Federal Confidentiality of Alcohol and Drug Abuse Patient Records regulations: The Federal rules restrict any use of the information to criminally investigate or prosecute any alcohol or drug abuse patient.[facility]In the event this information is protected by the Federal Confidentiality of Alcohol and Drug Abuse Patient Records regulations: The Federal rules restrict any use of the information to criminally investigate or prosecute any alcohol or drug abuse patient.[facility]In the event this information is protected by the Federal Confidentiality of Alcohol and Drug Abuse Patient Records regulations: The Federal rules restrict any use of the information to criminally investigate or prosecute any alcohol or drug abuse patient.[facility]In the event this information is protected by the Federal Confidentiality of Alcohol and Drug Abuse Patient Records regulations: The Federal rules restrict any use of the information to criminally investigate or prosecute any alcohol or drug abuse patient.[facility]In the event this information is protected by the Federal Confidentiality of Alcohol and Drug Abuse Patient Records regulations: The Federal rules restrict any use of the information to criminally investigate or prosecute any alcohol or drug abuse patient.[facility]In the event this information is protected by the Federal Confidentiality of Alcohol and Drug Abuse Patient Records regulations: The Federal rules restrict any use of the information to criminally investigate or prosecute any alcohol or drug abuse patient.[facility]In the event this information is protected by the Federal Confidentiality of Alcohol and Drug Abuse Patient Records regulations: The Federal rules restrict any use of the information to criminally investigate or prosecute any alcohol or drug abuse patient.[facility]In the event this information is protected by the Federal Confidentiality of Alcohol and Drug Abuse Patient Records regulations: The Federal rules restrict any use of the information to criminally investigate or prosecute any alcohol or drug abuse patient.[facility]In the event this information is protected by the Federal Confidentiality of Alcohol and Drug Abuse Patient Records regulations: The Federal rules restrict any use of the information to criminally investigate or prosecute any alcohol or drug abuse patient.[facility]In the event this information is protected by the Federal Confidentiality of Alcohol and Drug Abuse Patient Records regulations: The Federal rules restrict any use of the information to criminally investigate or prosecute any alcohol or drug abuse patient.[facility]In the event this information is protected by the Federal Confidentiality of Alcohol and Drug Abuse Patient Records regulations: The Federal rules restrict any use of the information to criminally investigate or prosecute any alcohol or drug abuse patient.[facility]In the event this information is protected by the Federal Confidentiality of Alcohol and Drug Abuse Patient Records regulations: The Federal rules restrict any use of the information to criminally investigate or prosecute any alcohol or drug abuse patient.[facility]In the event this information is protected by the Federal Confidentiality of Alcohol and Drug Abuse Patient Records regulations: The Federal rules restrict any use of the information to criminally investigate or prosecute any alcohol or drug abuse patient.[facility]In the event this information is protected by the Federal Confidentiality of Alcohol and Drug Abuse Patient Records regulations: The Federal rules restrict any use of the information to criminally investigate or prosecute any alcohol or drug abuse patient.[facility]In the event this information is protected by the Federal Confidentiality of Alcohol and Drug Abuse Patient Records regulations: The Federal rules restrict any use of the information to criminally investigate or prosecute any alcohol or drug abuse patient.[facility]In the event this information is protected by the Federal Confidentiality of Alcohol and Drug Abuse Patient Records regulations: The Federal rules restrict any use of the information to criminally investigate or prosecute any alcohol or drug abuse patient.[facility]In the event this information is protected by the Federal Confidentiality of Alcohol and Drug Abuse Patient Records regulations: The Federal rules restrict any use of the information to criminally investigate or prosecute any alcohol or drug abuse patient.[facility]In the event this information is protected by the Federal Confidentiality of Alcohol and Drug Abuse Patient Records regulations: The Federal rules restrict any use of the information to criminally investigate or prosecute any alcohol or drug abuse patient.[facility]In the event this information is protected by the Federal Confidentiality of Alcohol and Drug Abuse Patient Records regulations: The Federal rules restrict any use of the information to criminally investigate or prosecute any alcohol or drug abuse patient.[facility]In the event this information is protected by the Federal Confidentiality of Alcohol and Drug Abuse Patient Records regulations: The Federal rules restrict any use of the information to criminally investigate or prosecute any alcohol or drug abuse patient.[facility]In the event this information is protected by the Federal Confidentiality of Alcohol and Drug Abuse Patient Records regulations: The Federal rules restrict any use of the information to criminally investigate or prosecute any alcohol or drug abuse patient.[facility]In the event this information is protected by the Federal Confidentiality of Alcohol and Drug Abuse Patient Records regulations: The Federal rules restrict any use of the information to criminally investigate or prosecute any alcohol or drug abuse patient.[facility]In the event this information is protected by the Federal Confidentiality of Alcohol and Drug Abuse Patient Records regulations: The Federal rules restrict any use of the information to criminally investigate or prosecute any alcohol or drug abuse patient.[facility]In the event this information is protected by the Federal Confidentiality of Alcohol and Drug Abuse Patient Records regulations: The Federal rules restrict any use of the information to criminally investigate or prosecute any alcohol or drug abuse patient.[facility]In the event this information is protected by the Federal Confidentiality of Alcohol and Drug Abuse Patient Records regulations: The Federal rules restrict any use of the information to criminally investigate or prosecute any alcohol or drug abuse patient.[facility]In the event this information is protected by the Federal Confidentiality of Alcohol and Drug Abuse Patient Records regulations: The Federal rules restrict any use of the information to criminally investigate or prosecute any alcohol or drug abuse patient.[facility]In the event this information is protected by the Federal Confidentiality of Alcohol and Drug Abuse Patient Records regulations: The Federal rules restrict any use of the information to criminally investigate or prosecute any alcohol or drug abuse patient.[facility]In the event this information is protected by the Federal Confidentiality of Alcohol and Drug Abuse Patient Records regulations: The Federal rules restrict any use of the information to criminally investigate or prosecute any alcohol or drug abuse patient.[facility]In the event this information is protected by the Federal Confidentiality of Alcohol and Drug Abuse Patient Records regulations: The Federal rules restrict any use of the information to criminally investigate or prosecute any alcohol or drug abuse patient.[facility]In the event this information is protected by the Federal Confidentiality of Alcohol and Drug Abuse Patient Records regulations: The Federal rules restrict any use of the information to criminally investigate or prosecute any alcohol or drug abuse patient.[facility]In the event this information is protected by the Federal Confidentiality of Alcohol and Drug Abuse Patient Records regulations: The Federal rules restrict any use of the information to criminally investigate or prosecute any alcohol or drug abuse patient.[facility]In the event this information is protected by the Federal Confidentiality of Alcohol and Drug Abuse Patient Records regulations: The Federal rules restrict any use of the information to criminally investigate or prosecute any alcohol or drug abuse patient.[facility]In the event this information is protected by the Federal Confidentiality of Alcohol and Drug Abuse Patient Records regulations: The Federal rules restrict any use of the information to criminally investigate or prosecute any alcohol or drug abuse patient.[facility]In the event this information is protected by the Federal Confidentiality of Alcohol and Drug Abuse Patient Records regulations: The Federal rules restrict any use of the information to criminally investigate or prosecute any alcohol or drug abuse patient.[facility]In the event this information is protected by the Federal Confidentiality of Alcohol and Drug Abuse Patient Records regulations: The Federal rules restrict any use of the information to criminally investigate or prosecute any alcohol or drug abuse patient.[facility] CenterIn the event this information is protected by the Federal Confidentiality of Alcohol and Drug Abuse Patient Records regulations: The Federal rules restrict any use of the information to criminally investigate or prosecute any alcohol or drug abuse patient.[facility] CenterIn the event this information is protected by the Federal Confidentiality of Alcohol and Drug Abuse Patient Records regulations: The Federal rules restrict any use of the information to criminally investigate or prosecute any alcohol or drug abuse patient.[facility] CenterIn the event this information is protected by the Federal Confidentiality of Alcohol and Drug Abuse Patient Records regulations: The Federal rules restrict any use of the information to criminally investigate or prosecute any alcohol or drug abuse patient.[facility] CenterIn the event this information is protected by the Federal Confidentiality of Alcohol and Drug Abuse Patient Records regulations: The Federal rules restrict any use of the information to criminally investigate or prosecute any alcohol or drug abuse patient.[facility] CenterIn the event this information is protected by the Federal Confidentiality of Alcohol and Drug Abuse Patient Records regulations: The Federal rules restrict any use of the information to criminally investigate or prosecute any alcohol or drug abuse patient.[facility] CenterIn the event this information is protected by the Federal Confidentiality of Alcohol and Drug Abuse Patient Records regulations: The Federal rules restrict any use of the information to criminally investigate or prosecute any alcohol or drug abuse patient.[facility] CenterIn the event this information is protected by the Federal Confidentiality of Alcohol and Drug Abuse Patient Records regulations: The Federal rules restrict any use of the information to criminally investigate or prosecute any alcohol or drug abuse patient.[facility] CenterIn the event this information is protected by the Federal Confidentiality of Alcohol and Drug Abuse Patient Records regulations: The Federal rules restrict any use of the information to criminally investigate or prosecute any alcohol or drug abuse patient.[facility] CenterIn the event this information is protected by the Federal Confidentiality of Alcohol and Drug Abuse Patient Records regulations: The Federal rules restrict any use of the information to criminally investigate or prosecute any alcohol or drug abuse patient.[facility] CenterIn the event this information is protected by the Federal Confidentiality of Alcohol and Drug Abuse Patient Records regulations: The Federal rules restrict any use of the information to criminally investigate or prosecute any alcohol or drug abuse patient.[facility] CenterIn the event this information is protected by the Federal Confidentiality of Alcohol and Drug Abuse Patient Records regulations: The Federal rules restrict any use of the information to criminally investigate or prosecute any alcohol or drug abuse patient.[facility] CenterIn the event this information is protected by the Federal Confidentiality of Alcohol and Drug Abuse Patient Records regulations: The Federal rules restrict any use of the information to criminally investigate or prosecute any alcohol or drug abuse patient.[facility] CenterIn the event this information is protected by the Federal Confidentiality of Alcohol and Drug Abuse Patient Records regulations: The Federal rules restrict any use of the information to criminally investigate or prosecute any alcohol or drug abuse patient.[facility] CenterIn the event this information is protected by the Federal Confidentiality of Alcohol and Drug Abuse Patient Records regulations: The Federal rules restrict any use of the information to criminally investigate or prosecute any alcohol or drug abuse patient.[facility] CenterIn the event this information is protected by the Federal Confidentiality of Alcohol and Drug Abuse Patient Records regulations: The Federal rules restrict any use of the information to criminally investigate or prosecute any alcohol or drug abuse patient.[facility] CenterIn the event this information is protected by the Federal Confidentiality of Alcohol and Drug Abuse Patient Records regulations: The Federal rules restrict any use of the information to criminally investigate or prosecute any alcohol or drug abuse patient.[facility] CenterIn the event this information is protected by the Federal Confidentiality of Alcohol and Drug Abuse Patient Records regulations: The Federal rules restrict any use of the information to criminally investigate or prosecute any alcohol or drug abuse patient.[facility] Reason for Visit (unrecogniz ed [...] NEW HIGH MDM 60-74 MINUTES Josse Lance, FOUR SLIDE MACHINE SETTER.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 [address] [place] [address] Referral ID Status Reason Start Date Expiration Date V isits Requested Visits Authorized [id number] Closed PCP Requested Referral 07/03/2021 07/03/2022 1 [...] US PELVIC NONOBSTETRIC IMAGE DCMTN LIMITED/F/U Jaci Lucero, FOUR SLIDE MACHINE SETTER.GAS PUMPING STATION OPERATOR [address] [place] [address] Us Imaging Referral ID Status Reason Start Date Expiration Date V isits Requested Visits Authorized [id number] Closed Auto-Generate d Referral 10/20/2021 11/19/2022 1 [...] Tramadol - itching Reason Onset Date Comments [facility] 08/28/2022 Telephonic outre ach Reason Onset Date Comments [facility] 08/29/2022 Telephonic outre ach Reason Onset Date Comments Opened In Error 08/29/2022 Reason Comments Patient Question Follow Up Returned patients ca ll. She had a question about seeing two Cardiologists. I let her know that she should see the transplant neighborhood aide here at [facility] which she is scheduled for in January. [...] C are Cancellation Reason Onset Date Comments [facility] 10/26/2022 Routine outreach Reason Comments Rash Around left side of body, itching Reason Comments Left Hip Pain Fall Reason Onset Date Comments Refill Request 11/20/2022 Reason Onset Date Comments [facility] 11/22/2022 Routine outreach Reason Comments Follow Up fell 3 week ago and 1 week ago crashed electric wheelchair Reason Onset Date Comments [facility] 12/20/2022 Routine outreach Reason Comments Letter Reason Comments Recheck ER follow up, abdomi nal pain Reason Comments ED Follow-up Reason Comments New Patient Hep C Protocol, Pre Kidney TXP Specialty Diagnoses / Procedures Referred By Contact Referred To Contact Gastroenterology / TRANSPLANT Diagnoses Pre-transplant evaluation for end stage renal disease Awaiting organ transplant Procedures CONSULT TO GASTROENTEROLOGY OFFICE/OUTPATIENT [facility] 60-74 MINUTES Kel Victoria MD [address] [id number] [facility] [address] [place] [address] Referral ID Status Reason Start Date Expiration Date V isits Requested Visits Authorized [id number] Closed PCP Requested Referral Patient Cleared - INN Insurance Found 04/30/2022 04/29/2023 1 1 Specialty Diagnoses / Procedures Referred By Contac t Referred To Contact Cardiology / TRANSPLANT Diagnoses Pre-transplant evaluation for end stage renal disease Pre-operative cardiovascular examination History of heart artery stent Procedures CONSULT TO CARDIOLOGY OFFICE/OUTPATIENT [facility] 60-74 MINUTES Kel Victoria MD [address] [place] [address] [facility] [address] [place] [address] Referral ID Status Reason Start Date Expiration Date V isits Requested Visits Authorized [id number] Closed PCP Requested Referral Patient Cleared - [...] Care Teams (unrecognized sec tion and content) Zinc Skimmer Relationship Specialty Start Date End Date Jame Hunt MD [address] [place] [address] PCP - General Internal Medicine 08/15/16 [facility]ideKim [facility]arrisSaint [facility] [address] [place] [address] Pharmacist Pharmacy 07/17/18 Vaughn Reeves RN [facility] [address] [place] [address] Registered Nurse Transplant Center 04/13/19 Ricki Dc MD [address] [place] [address] [place] [address] Trim Crew Supervisor Nephrology 01/11/20 Vicente Vargas MD [address] [place] [address] Cardiology 04/05/21 Zinc Skimmer Relationship Specialty Start Date End Date Jame Hunt MD [address] [place] [address] PCP - General Internal Medicine 08/15/16 [facility] [address] [place] [address] Pharmacist Pharmacy 07/17/18 Vaughn Reeves RN [facility] [address] [place] [address] Registered Nurse Transplant Center 04/13/19 Ricki Dc MD [address] [place] [address] [place] [address] Trim Crew Supervisor Nephrology 01/11/20 Vicente Vargas MD [address] [place] [address] Cardiology 04/05/21 Zinc Skimmer Relationship Specialty Start Date End Date Jame Hunt MD [address] [place] [address] PCP - General Internal Medicine 08/15/16 Kim La, [facility] [address] [place] [address] Pharmacist Pharmacy 07/17/18 Vaughn Reeves, NIEVES [facility] [address] [place] [address] Registered Nurse Transplant Center 04/13/19 Ricki Dc MD [address] [place] [facility] [place] [address] Trim Crew Supervisor Nephrology 01/11/20 Vicente Vargas MD [address] [place] [address] Cardiology 04/05/21 Zinc Skimmer Relationship Specialty Start Date End Date Jame Hunt [facility] [address] [facility] [place] [address] PCP - General Internal Medicine 08/15/16 [facility] [address] [place] [address] Pharmacist Pharmacy 07/17/18 Vaughn Reeves RN [facility] [address] [place] [address] Registered Nurse Transplant Center 04/13/19 Ricki Dc MD [address] [place] [place] [address] Trim Crew Supervisor Nephrology 01/11/20 Vicente Vargas MD [address] [place] [address] Cardiology 04/05/21 Zinc Skimmer Relationship Specialty Start Date End Date Jame Hunt MD [address] [place] [address] PCP - General Internal Medicine 08/15/16 Kim La [facility] [address] [place] [address] Pharmacist Pharmacy 07/17/18 Vaughn Reeves RN [facility] [address] [place] [address] Registered Nurse Transplant Center 04/13/19 Ricki Dc MD [address] [place] [address] Trim Crew Supervisor Nephrology 01/11/20 Vicente Vargas MD [address] [place] [address] Cardiology 04/05/21 Zinc Skimmer Relationship Specialty Start Date End Date Jame Hunt MD [address] [place] [address] PCP - General Internal Medicine 08/15/16 [facility] [address] [place] [address] Pharmacist Pharmacy 07/17/18 Vaughn Reeves RN [facility] [address] [place] [address] Registered Nurse Transplant Center 04/13/19 Ricki Dc MD [address] [place] [address] Trim Crew Supervisor Nephrology 01/11/20 Vicente Vargas MD [address] [place] [address] Cardiology 04/05/21 Zinc Skimmer Relationship Specialty Start Date End Date Jame Hunt MD [address] [place] [address] PCP - General Internal Medicine 08/15/16 Kim La, [facility] [address] [place] [address] Pharmacist Pharmacy 07/17/18 Vaughn Reeves RN [facility] [address] [place] [address] Registered Nurse Transplant Center 04/13/19 Ricki Dc MD [address] [place] [place] [address] Trim Crew Supervisor Nephrology 01/11/20 Vicente Vargas MD [address] [place] [address] Cardiology 04/05/21 Zinc Skimmer Relationship Specialty Start Date End Date Jame Hunt MD [address] [place] [address] PCP - General Internal Medicine 08/15/16 InglesideKim, [facility] [address] [place] [address] Pharmacist Pharmacy 07/17/18 Vaughn Reeves, RN [facility] [address] [place] [address] Registered Nurse Transplant Center 04/13/19 Ricki Dc MD [address] [place] [place] [address] Trim Crew Supervisor Nephrology 01/11/20 Vicente Vargas MD [address] [place] [address] Cardiology 04/05/21 Zinc Skimmer Relationship Specialty Start Date End Date Jame Hunt MD [address] [place] [address] PCP - General Internal Medicine 08/15/16 Kim La, [facility] [address] [place] [address] Pharmacist Pharmacy 07/17/18 Vaughn Reeves, RN [facility] [address] [place] [address] Registered Nurse Transplant Center 04/13/19 Ricki Dc MD [address] [place] [place] [address] Trim Crew Supervisor Nephrology 01/11/20 Vicente Vargas MD [address] [place] [address] Cardiology 04/05/21 Zinc Skimmer Relationship Specialty Start Date End Date Jame Hunt MD [address] [place] [address] PCP - General Internal Medicine 08/15/16 Kim La, [facility] [address] [place] [address] Pharmacist Pharmacy 07/17/18 Vaughn Reeves, NIEVES [facility] [address] [place] [address] Registered Nurse Transplant Center 04/13/19 Ricki Dc MD [address] [place] [address] Trim Crew Supervisor Nephrology 01/11/20 Vicente Vargas MD [address] [place] [address] Cardiology 04/05/21 Zinc Skimmer Relationship Specialty Start Date End Date Jame Hunt MD [address] [place] [address] PCP - General Internal Medicine 08/15/16 Kim La, [facility] [address] [place] [address] Pharmacist Pharmacy 07/17/18 Vaughn Reeves RN [facility] [address] [place] [address] Registered Nurse Transplant Center 04/13/19 Ricki Dc MD [address] [place] [address] Trim Crew Supervisor Nephrology 01/11/20 Vicente Vargas MD [address] [place] [address] Cardiology 04/05/21 Zinc Skimmer Relationship Specialty Start Date End Date Jame Hunt MD [address] [place] [address] PCP - General Internal Medicine 08/15/16 Kim La, [facility] [address] [place] [address] Pharmacist Pharmacy 07/17/18 Vaughn Reeves RN [facility] [address] [place] [address] Registered Nurse Transplant Center 04/13/19 Ricki Dc MD [address] [place] [place] [address] Trim Crew Supervisor Nephrology 01/11/20 Vicente Vargas MD [address] [place] [address] Cardiology 04/05/21 Zinc Skimmer Relationship Specialty Start Date End Date Jame Hunt MD [address] [facility] [place] [address] PCP - General Internal Medicine 08/15/16 Kim La, [facility] [address] [place] [address] Pharmacist Pharmacy 07/17/18 Vaughn Reeves RN [facility] [address] [place] [address] Registered Nurse Transplant Center 04/13/19 Ricki Dc MD [address] [place] [place] [address] Trim Crew Supervisor Nephrology 01/11/20 Vicente Vargas MD [address] [place] [address] Cardiology 04/05/21 Zinc Skimmer Relationship Specialty Start Date End Date Jame Hunt MD [address] [place] [address] PCP - General Internal Medicine 08/15/16 Kim La, [facility] [address] [place] [address] Pharmacist Pharmacy 07/17/18 Vaughn Reeves RN [facility] [address] [place] [address] Registered Nurse Transplant Center 04/13/19 Ricki Dc MD [address] [place] [place] [address] Trim Crew Supervisor Nephrology 01/11/20 Vicente Vargas MD [address] [place] [address] Cardiology 04/05/21 Zinc Skimmer Relationship Specialty Start Date End Date Jame Hunt MD [address] [place] [address] PCP - General Internal Medicine 08/15/16 [place] Kim, [facility] [address] [place] [address] Pharmacist Pharmacy 07/17/18 Vaughn Reeves, RN [facility] [address] [place] [address] Registered Nurse Transplant Center 04/13/19 Ricki Dc MD [address] [place] [facility] [place] [address] Trim Crew Supervisor Nephrology 01/11/20 Vicente Vargas MD [address] [place] [address] Cardiology 04/05/21 Zinc Skimmer Relationship Specialty Start Date End Date Jame Hunt MD [address] [place] [address] PCP - General Internal Medicine 08/15/16 [place] [facility] [address] [place] [address] Pharmacist Pharmacy 07/17/18 Vaughn Reeves RN [facility] [address] [place] [address] Registered Nurse Transplant Center 04/13/19 Ricki Dc MD [address] [place] [address] Trim Crew Supervisor Nephrology 01/11/20 Vicente Vargas MD [address] [place] [address] Cardiology 04/05/21 Zinc Skimmer Relationship Specialty Start Date End Date Jame Hunt MD [address] [place] [address] PCP - General Internal Medicine 08/15/16 AbhinavKim harris, [facility] [address] [place] [address] Pharmacist Pharmacy 07/17/18 Vaughn Reeves RN [facility] [address] [place] [address] Registered Nurse Transplant Center 04/13/19 Ricki Dc MD [address] [place] [address] Trim Crew Supervisor Nephrology 01/11/20 Vicente Vargas MD [address] [place] [address] Cardiology 04/05/21 Zinc Skimmer Relationship Specialty Start Date End Date Jame Hunt MD [address] [facility] [place] [address] PCP - General Internal Medicine 08/15/16 Kim La, [facility] [address] [place] [address] Pharmacist Pharmacy 07/17/18 Vaughn Reeves RN [facility] [address] [place] [address] Registered Nurse Transplant Center 04/13/19 Ricki Dc MD [address] [place] [address] [place] [address], [place] [address] Trim Crew Supervisor Nephrology 01/11/20 Vicente Vargas MD [address] [place] [address] Cardiology 04/05/21 Roxie Palmer, NIEVES [address] [place] [address] [id number] Bone Density Technician 09/11/21 Zinc Skimmer Relationship Specialty Start Date End Date Jame Hunt MD [address] [place] [address] PCP - General Internal Medicine 08/15/16 [facility] [address] [place] [address] Pharmacist Pharmacy 07/17/18 Vaughn Reeves RN [facility] [address] [place] [address] Registered Nurse Transplant Center 04/13/19 Ricki Dc MD [address] [place] [address] [place] [address] Trim Crew Supervisor Nephrology 01/11/20 Vicente Vargas MD [address] [place] [address] Cardiology 04/05/21 Roxie Palmer, NIEVES [address] [place], [place] [id number] Bone Density Technician 09/11/21 Zinc Skimmer Relationship Specialty Start Date End Date Jame Hunt MD [address] [place] [address] PCP - General Internal Medicine 08/15/16 [facility] [address] [place] [address] Pharmacist Pharmacy 07/17/18 Vaughn Reeves RN [facility] [address] [place] [address] Registered Nurse Transplant Center 04/13/19 Ricki Dc MD [address] [place] [address] [place] [address] Trim Crew Supervisor Nephrology 01/11/20 Vicente Vargas MD [address] [place] [address] Cardiology 04/05/21 Roxie Palmer, NIEVES [address] [place], [place] [id number] Bone Density Technician 09/11/21 Zinc Skimmer Relationship Specialty Start Date End Date Jame Hunt MD [address] [place] [address] PCP - General Internal Medicine 08/15/16 [facility] [address] [place] [address] Pharmacist Pharmacy 07/17/18 Vaughn Reeves, NIEVES [facility] [address] [place] [address] Registered Nurse Transplant Center 04/13/19 Ricki Dc MD [address] [address] Trim Crew Supervisor Nephrology 01/11/20 Vicente Vargas MD [address] [place] [address] Cardiology 04/05/21 Roxie Palmer, NIEVES [address] [place], [place] [id number] Bone Density Technician 09/11/21 Zinc Skimmer Relationship Specialty Start Date End Date Jame Hunt MD [address] [place] [address] PCP - General Internal Medicine 08/15/16 [facility] [address] [place] [address] Pharmacist Pharmacy 07/17/18 Vaughn Reeves RN [facility] [address] [place] [address] Registered Nurse Transplant Center 04/13/19 Ricki Dc MD [address] [address] Trim Crew Supervisor Nephrology 01/11/20 Vicente Vargas MD [address] [place] [address] Cardiology 04/05/21 Roxie Palmer RN [address] [place], [place] [id number] Bone Density Technician 09/11/21 Zinc Skimmer Relationship Specialty Start Date End Date Jame Hunt MD [address] [place] [address] PCP - General Internal Medicine 08/15/16 [facility] [address] [place] [address] Pharmacist Pharmacy 07/17/18 Vaughn Reeves RN [facility] [address] [place] [address] Registered Nurse Transplant Center 04/13/19 Ricki Dc MD [address] [address] Trim Crew Supervisor Nephrology 01/11/20 Vicente Vargas MD [address] [place] [address] Cardiology 04/05/21 Roxie Palmer RN [address] [place], [place] [phone] Bone Density Technician 09/11/21 Zinc Skimmer Relationship Specialty Start Date End Date Jame Hunt MD [address] [facility] [place] [address] PCP - General Internal Medicine 08/15/16 [facility] [address] [place] [address] Pharmacist Pharmacy 07/17/18 Vaughn Reeves RN [facility] [address] [place] [address] Registered Nurse Transplant Center 04/13/19 Ricki Dc MD [address] [address] Trim Crew Supervisor Nephrology 01/11/20 Vicente Vargas MD [address] [place] [address] Cardiology 04/05/21 Roxie Palmer RN [address] [place] [address] Bone Density Technician 09/11/21 Zinc Skimmer Relationship Specialty Start Date End Date Jame Hunt MD [address] [facility] [place] [address] PCP - General Internal Medicine 08/15/16 [facility] [address] [place] [address] Pharmacist Pharmacy 07/17/18 Vaughn Reeves RN [facility] [address] [place] [address] Registered Nurse Transplant Center 04/13/19 Ricki Dc MD [address] [address] Trim Crew Supervisor Nephrology 01/11/20 Vicente Vargas MD [address] [place] [address] Cardiology 04/05/21 Roxie Palmer, NIEVES [address] [place], [place] [phone] Bone Density Technician 09/11/21 Zinc Skimmer Relationship Specialty Start Date End Date Jame Hunt MD [address] [place] [address] PCP - General Internal Medicine 08/15/[address] [address] Pharmacist Pharmacy 07/17/18 Vaughn Reeves RN [facility] [address] [place] [address] Registered Nurse Transplant Center 04/13/19 Ricki Dc MD [address] [address] Trim Crew Supervisor Nephrology 01/11/20 Vicente Vargas MD [address] [place] [address] Cardiology 04/05/21 Roxie Palmer RN [address] [place], [place] [phone] Bone Density Technician 09/11/21 Zinc Skimmer Relationship Specialty Start Date End Date Jame Hunt MD [address] [place] [address] PCP - General Internal Medicine 08/15/[address] [address] Pharmacist Pharmacy 07/17/18 Vaughn Reeves RN [facility] [address] [place] [address] Registered Nurse Transplant Center 04/13/19 Ricki Dc MD [address] [address] Trim Crew Supervisor Nephrology 01/11/20 Vicente Vargas MD [address] [place] [address] Cardiology 04/05/21 Roxie Palmer, NIEVES [address] [place], [place] [id number] Bone Density Technician 09/11/21 Zinc Skimmer Relationship Specialty Start Date End Date Jame Hunt MD [address] [place] [address] PCP - General Internal Medicine 08/15/[address] [address] Pharmacist Pharmacy 07/17/18 Vaughn Reeves RN [facility] [address] [place] [address] Registered Nurse Transplant Center 04/13/19 Ricki Dc MD [address] [address] Trim Crew Supervisor Nephrology 01/11/20 Vicente Vargas MD [address] [place] [address] Cardiology 04/05/21 Roxie Palmer RN [address] [place], [place] [id number] Bone Density Technician 09/11/21 Zinc Skimmer Relationship Specialty Start Date End Date Jame Hunt MD [address] [place] [address] PCP - General Internal Medicine 08/15/[address] [address] Pharmacist Pharmacy 07/17/18 Vaughn Reeves RN [facility] [address] [place] [address] Registered Nurse Transplant Center 04/13/19 Ricki Dc MD [address] [address] Trim Crew Supervisor Nephrology 01/11/20 Vicente Vargas MD [address] [place] [address] Cardiology 04/05/21 Roxie Palmer, NIEVES [address] [place] [address] Bone Density Technician 09/11/21 Zinc Skimmer Relationship Specialty Start Date End Date Jame Hunt MD [address] [place] [address] PCP - General Internal Medicine 08/15/[address] [address] Pharmacist Pharmacy 07/17/18 Vaughn Reeves RN [facility] [address] [place] [address] Registered Nurse Transplant Center 04/13/19 Ricki Dc MD [address] [address] Trim Crew Supervisor Nephrology 01/11/20 Vicente Vargas MD [address] [place] [address] Cardiology 04/05/21 Roxie Palmer, NIEVES [address] [place] [address] Bone Density Technician 09/11/21 Zinc Skimmer Relationship Specialty Start Date End Date Jame Hunt [facility] [address] [facility] [place] [address] PCP - General Internal Medicine 08/15/[address] [address] Pharmacist Pharmacy 07/17/18 Vaughn Reeves RN [facility] [address] [place] [address] Registered Nurse Transplant Center 04/13/19 Ricki Dc MD [address] [address] Trim Crew Supervisor Nephrology 01/11/20 Vicente Vargas MD [address] [place] [address] (Fax) Cardiology 04/05/21 Roxie Palmer, NIEVES [address] [place] [address] Bone Density Technician 09/11/21 Zinc Skimmer Relationship Specialty Start Date End Date Jame Hunt MD [address] [place] [address] PCP - General Internal Medicine 08/15/16 [address] [address] Pharmacist Pharmacy 07/17/18 Vaughn Reeves RN [facility] [address] [place] [address] Registered Nurse Transplant Center 04/13/19 Ricki Dc MD [address] [address] Trim Crew Supervisor Nephrology 01/11/20 Vicente Vargas MD [address] [place] [address] Cardiology 04/05/21 Roxie Palmer, NIEVES [address] [place] [address] Bone Density Technician 09/11/21 Zinc Skimmer Relationship Specialty Start Date End Date Jame Hunt MD [address] [place] [address] PCP - General Internal Medicine 08/15/[address] [address] Pharmacist Pharmacy 07/17/18 Vaughn Reeves RN [address] [place] [address] Registered Nurse Transplant Center 04/13/19 Ricki Dc MD [address] [address] Trim Crew Supervisor Nephrology 01/11/20 Vicente Vargas MD [address] [place] [address] (Fax) Cardiology 04/05/21 Roxie Palmer, NIEVES [address] [place] [address] Bone Density Technician 09/11/21 Zinc Skimmer Relationship Specialty Start Date End Date Jame Hunt MD [address] [place] [address] PCP - General Internal Medicine 08/15/[address] [address] Pharmacist Pharmacy 07/17/18 Vaughn Reeves RN [address] [address] Registered Nurse Transplant Center 04/13/19 Ricki Dc MD [address] [address] Trim Crew Supervisor Nephrology 01/11/20 Vicente Vargas MD [address] [place] [address] (Fax) Cardiology 04/05/21 Roxie Palmer RN [address] [place] [address] Bone Density Technician 09/11/21 Zinc Skimmer Relationship Specialty Start Date End Date Jame Hunt MD [address] [place] [address] PCP - General Internal Medicine 08/15/[address] [address] Pharmacist Pharmacy 07/17/18 Vaughn Reeves RN [address] [address] Registered Nurse Transplant Center 04/13/19 Ricki Dc MD [address] [place] [address] [place] [address] Trim Crew Supervisor Nephrology 01/11/20 Vicente Vargas MD [address] [place] [address] (Fax) Cardiology 04/05/21 Roxie Palmer, NIEVES [address] [place] [address] Bone Density Technician 09/11/21 Zinc Skimmer Relationship Specialty Start Date End Date Jame Hunt MD [address] [facility] [place] [address] PCP - General Internal Medicine 08/15/[address] [address] Pharmacist Pharmacy 07/17/18 Vaughn Reeves RN [facility] [address] [place] [address] Registered Nurse Transplant Center 04/13/19 Ricki Dc MD [address] [address] Trim Crew Supervisor Nephrology 01/11/20 Vicente Vargas MD [address] [place] [address] Cardiology 04/05/21 Roxie Palmer RN [address] [place] [address] Bone Density Technician 09/11/21 Zinc Skimmer Relationship Specialty Start Date End Date Jame Hunt MD [address] [place] [address] PCP - General Internal Medicine 08/15/[address] [address] Pharmacist Pharmacy 07/17/18 Vaughn Reeves RN [facility] [address] [place] [address] Registered Nurse Transplant Center 04/13/19 Ricki Dc MD [address] [address] Trim Crew Supervisor Nephrology 01/11/20 Vicente Vargas MD [address] [place] [address] Cardiology 04/05/21 Roxie Palmer, NIEVES [address] [place] [address] Bone Density Technician 09/11/21 Zinc Skimmer Relationship Specialty Start Date End Date Jame Hunt MD [address] [place] [address] PCP - General Internal Medicine 08/15/[address] [address] Pharmacist Pharmacy 07/17/18 Vaughn Reeves RN [address] [address] Registered Nurse Transplant Center 04/13/19 Ricki Dc MD [address] [address] Trim Crew Supervisor Nephrology 01/11/20 Vicente Vargas MD [address] [place] [address] Cardiology 04/05/21 Roxie Palmer RN [address] [place] [address] Bone Density Technician 09/11/21 Zinc Skimmer Relationship Specialty Start Date End Date Jame Hunt MD [address] [place] [address] PCP - General Internal Medicine 08/15/[address] [address] Pharmacist Pharmacy 07/17/18 Vaughn Reeves RN [facility] [address] [place] [address] Registered Nurse Transplant Center 04/13/19 Ricki Dc MD [address] [place] [address] [place] [address] Trim Crew Supervisor Nephrology 01/11/20 Vicente Vargas MD [address] [place] [address] Cardiology 04/05/21 Roxie Palmer RN [address] [place], [place] [address] Bone Density Technician 09/11/21 Zinc Skimmer Relationship Specialty Start Date End Date Jame Hunt MD [address] [place] [address] PCP - General Internal Medicine 08/15/[address] [address] Pharmacist Pharmacy 07/17/18 Vaughn Reeves RN [facility] [address] [place] [address] Registered Nurse Transplant Center 04/13/19 Ricki Dc MD [address] [place] [address] [place] [address] Trim Crew Supervisor Nephrology 01/11/20 Vicente Vargas MD [address] [place] [address] Cardiology 04/05/21 Roxie Palmer RN [address] [place] [address] Bone Density Technician 09/11/21 Zinc Skimmer Relationship Specialty Start Date End Date Jame Hunt MD [address] [place] [address] PCP - General Internal Medicine 08/15/[address] [address] Pharmacist Pharmacy 07/17/18 Vaughn Reeves RN [facility] [address] [place] [address] Registered Nurse Transplant Center 04/13/19 Ricki Dc MD [address] [place] [address] Trim Crew Supervisor Nephrology 01/11/20 Vicente Vargas MD [address] [place] [address] Cardiology 04/05/21 Roxie Palmer RN [address] [place] [address] Bone Density Technician 09/11/21 Zinc Skimmer Relationship Specialty Start Date End Date Jame Hunt [facility] [address] [facility] [place] [address] PCP - General Internal Medicine 08/15/16 Kim La, [facility] [address] [place] [address] Pharmacist Pharmacy 07/17/18 Vaughn Reeves, NIEVES [address] [address] Registered Nurse Transplant Center 04/13/19 Ricki Dc MD [address] [place] [address] [place] [address] Trim Crew Supervisor Nephrology 01/11/20 Vicente Vargas MD [address] [place] [address] Cardiology 04/05/21 Roxie Palmer RN [address] [place] [address] Bone Density Technician 09/11/21 Zinc Skimmer Relationship Specialty Start Date End Date Jame Hunt MD [address] [place] [address] PCP - General Internal Medicine 08/15/16 Kim La, [facility] [address] [place] [address] Pharmacist Pharmacy 07/17/18 Vaughn Reeves RN [facility] [address] [place] [address] Registered Nurse Transplant Center 04/13/19 Ricki Dc MD [address] [place] [address] [place] [address] Trim Crew Supervisor Nephrology 01/11/20 Vicente Vargas MD [address] [place] [address] Cardiology 04/05/21 Roxie Palmer RN [address] [place], [place] [address] Bone Density Technician 09/11/21 Zinc Skimmer Relationship Specialty Start Date End Date Jame Hunt MD [address] [place] [address] PCP - General Internal Medicine 08/15/16 Kim La, [facility] [address] [place], [place] [address] Pharmacist Pharmacy 07/17/18 Vaguhn Reeves, NIEVES [address] [address] Registered Nurse Transplant Center 04/13/19 Ricki Dc MD [address] [address] Trim Crew Supervisor Nephrology 01/11/20 Vicente Vargas MD [address] [place] [address] Cardiology 04/05/21 Roxie Palmer RN [address] [place] [address] Bone Density Technician 09/11/21 Zinc Skimmer Relationship Specialty Start Date End Date Jame Hunt MD [address] [place] [address] PCP - General Internal Medicine 08/15/16 [facility] [address] [place] [address] Pharmacist Pharmacy 07/17/18 Vaughn Reeves, NIEVES [facility] [address] [place] [address] Registered Nurse Transplant Center 04/13/19 Ricki Dc MD [address] [address] Trim Crew Supervisor Nephrology 01/11/20 Vicente Vargas MD [address] [place] [address] Cardiology 04/05/21 Roxie Palmer, NIEVES [address] [place] [address] Bone Density Technician 09/11/21 Zinc Skimmer Relationship Specialty Start Date End Date Jame Hunt MD [address] [place] [address] PCP - General Internal Medicine 08/15/16 Kim La, [facility] [address] [place] [address] Pharmacist Pharmacy 07/17/18 Vaughn Reeves, NIEVES [facility] [address] [place] [address] Registered Nurse Transplant Center 04/13/19 Ricki Dc MD [address] [place] [address] [place] [address] Trim Crew Supervisor Nephrology 01/11/20 Vicente Vargas MD [address] [place] [address] Cardiology 04/05/21 Roxie Palmer, NIEVES [address] [place] [address] Bone Density Technician 09/11/21 Zinc Skimmer Relationship Specialty Start Date End Date Jame Hunt MD [address] [place] [address] PCP - General Internal Medicine 08/15/16 Kim La, [facility] [address] [place] [address] Pharmacist Pharmacy 07/17/18 Vaughn Reeves RN [facility] [address] [place] [address] Registered Nurse Transplant Center 04/13/19 Ricki Dc MD [address] [place] [address] [place] [address] Trim Crew Supervisor Nephrology 01/11/20 Vicente Vargas MD [address] [place] [address] Cardiology 04/05/21 Roxie Palmer, NIEVES [address] [place] [address] Bone Density Technician 09/11/21 Zinc Skimmer Relationship Specialty Start Date End Date Jame Hunt MD [address] [place] [address] PCP - General Internal Medicine 08/15/16 Kim La, [facility] [address] [place] [address] Pharmacist Pharmacy 07/17/18 Vaughn Reeves, NIEVES [address] [address] Registered Nurse Transplant Center 04/13/19 Ricki Dc MD [address] [place] [address] [place] [address] Trim Crew Supervisor Nephrology 01/11/20 Vicente Vargas MD [address] [place] [address] Cardiology 04/05/21 Roxie Palmer, NIEVES [address] [place] [address] Bone Density Technician 09/11/21 Zinc Skimmer Relationship Specialty Start Date End Date Jame Hunt MD [address] [place] [address] PCP - General Internal Medicine 08/15/16 Kim La, [facility] [address] [place] [address] Pharmacist Pharmacy 07/17/18 Vaughn Reeves, NIEVES [facility] [address] [place] [address] Registered Nurse Transplant Center 04/13/19 Ricki Dc MD [address] [place] [address] [place] [address] Trim Crew Supervisor Nephrology 01/11/20 Vicente Vargas MD [address] [place] [address] Cardiology 04/05/21 Roxie Palmer, RN [address] [place] [address] Bone Density Technician 09/11/21 Zinc Skimmer Relationship Specialty Start Date End Date Jame Hunt MD [address] [place] [address] PCP - General Internal Medicine 08/15/16 [facility] [address] [place] [address] Pharmacist Pharmacy 07/17/18 Vaughn Reeves, NIEVES [address] [address] Registered Nurse Transplant Center 04/13/19 Ricki Dc MD [address] [place] [address] [place] [address] Trim Crew Supervisor Nephrology 01/11/20 Vicente Vargas MD [address] [place] [address] Cardiology 04/05/21 Roxie Palmer, NIEVES [address] [place] [address] Bone Density Technician 09/11/21 Zinc Skimmer Relationship Specialty Start Date End Date Jame Hunt MD [address] [place] [address] PCP - General Internal Medicine 08/15/16 [facility] [address] [place] [address] Pharmacist Pharmacy 07/17/18 Vaughn Reeves, NIEVES [facility] [address] [place], [place] [address] [address] Registered Nurse Transplant Center 04/13/19 Ricki Dc MD [address] [place] [address] [place] [address] Trim Crew Supervisor Nephrology 01/11/20 Vicente Vargas MD [address] [place] [address] Cardiology 04/05/21 Roxie Palmer, NIEVES [address] [place] [address] Bone Density Technician 09/11/21 Zinc Skimmer Relationship Specialty Start Date End Date Jame Hunt MD [address] [place] [address] PCP - General Internal Medicine 08/15/16 [facility] [address] [place] [address] Pharmacist Pharmacy 07/17/18 Vaughn Reeves, NIEVES [facility] [address] [place] [address] Registered Nurse Transplant Center 04/13/19 Ricki Dc MD [address] [place] [address] [place] [address] Trim Crew Supervisor Nephrology 01/11/20 Vicente Vargas MD [address] [place] [address] Cardiology 04/05/21 Roxie Palmer, NIEVES [address] [place] [address] Bone Density Technician 09/11/21 Zinc Skimmer Relationship Specialty Start Date End Date Jame Hunt MD [address] [place] [address] PCP - General Internal Medicine 08/15/16 [facility] [address] [place] [address] Pharmacist Pharmacy 07/17/18 Vaughn Reeves RN [facility] [address] [facility] [place] [address] Registered Nurse Transplant Center 04/13/19 Ricki Dc MD [address] [place] [address] [place] [address] Trim Crew Supervisor Nephrology 01/11/20 Vicente Vargas MD [address] [place] [address] Cardiology 04/05/21 Roxie Palmer, NIEVES [address] [place] [address] Bone Density Technician 09/11/21 Zinc Skimmer Relationship Specialty Start Date End Date Jame Hunt MD [address] [place] [address] PCP - General Internal Medicine 08/15/16 AbhinavKim [facility]Saint [facility] [address] [place] [address] Pharmacist Pharmacy 07/17/18 Vaughn Reeves RN [facility] [address] [place] [address] Registered Nurse Transplant Center 04/13/19 Ricki Dc MD [address] [place] [address] [place] [address] Trim Crew Supervisor Nephrology 01/11/20 Vicente Vargas MD [address] [place] [address] Cardiology 04/05/21 Roxie Palmer, NIEVES [address] [place] [address] Bone Density Technician 09/11/21 Zinc Skimmer Relationship Specialty Start Date End Date Jame Hunt MD [address] [place] [address] PCP - General Internal Medicine 08/15/16 [facility] [address] [place] [address] Pharmacist Pharmacy 07/17/18 Vaughn Reeves RN [facility] [address] [place] [address] Registered Nurse Transplant Center 04/13/19 Ricki Dc MD [address] [place] [address] [place] [address] Trim Crew Supervisor Nephrology 01/11/20 Vicente Vargas MD [address] [place] [address] Cardiology 04/05/21 Dasha Colvin, coffee farmerBone Density Technician 08/07/22 Zinc Skimmer Relationship Specialty Start Date End Date Jame Hunt MD [address] [place] [address] PCP - General Internal Medicine 08/15/16 Kim La, [facility] [address] [place] [address] Pharmacist Pharmacy 07/17/18 Vaughn Reeves, RN [facility] [address] [place] [address] Registered Nurse Transplant Center 04/13/19 Ricki Dc MD [address] [address] Trim Crew Supervisor Nephrology 01/11/20 Vicente Vargas MD [address] [place] [address] Cardiology 04/05/21 Dasha Colvin, coffee farmerBone Density Technician 08/07/22 Zinc Skimmer Relationship Specialty Start Date End Date Jame Hunt MD [address] [place] [address] PCP - General Internal Medicine 08/15/16 Kim La, [facility] [address] [place] [address] Pharmacist Pharmacy 07/17/18 Vaughn Reeves, NIEVES [facility] [address] [place] [address] Registered Nurse Transplant Center 04/13/19 Ricki Dc MD [address] [place] [address] [place] [address] Trim Crew Supervisor Nephrology 01/11/20 Vicente Vargas MD [address] [place] [address] Cardiology 04/05/21 Dasha Colvin, coffee farmerBone Density Technician 08/07/22 Zinc Skimmer Relationship Specialty Start Date End Date Jame Hunt MD [address] [facility] [place] [address] PCP - General Internal Medicine 08/15/16 InglesideKim harris, [facility] [address] [place] [address] Pharmacist Pharmacy 07/17/18 Vaughn Reeves, NIEVES [facility] [address] [place] [address] Registered Nurse Transplant Center 04/13/19 Ricki Dc MD [address] [place] [address] [place] [address] Trim Crew Supervisor Nephrology 01/11/20 Vicente Vargas MD [address] [place] [address] Cardiology 04/05/21 Dasha Colvin, coffee farmerBone Density Technician 08/07/22 Zinc Skimmer Relationship Specialty Start Date End Date Jame Hunt MD [address] [place] [address] PCP - General Internal Medicine 08/15/16 Kim La, [facility] [address] [place] [address] Pharmacist Pharmacy 07/17/18 Vaughn Reeves RN [facility] [address] [place] [address] Registered Nurse Transplant Center 04/13/19 Ricki Dc MD [address] [place] [address] [place] [address] Trim Crew Supervisor Nephrology 01/11/20 Vicente Vargas MD [address] [place] [address] Cardiology 04/05/21 Sienna Miller, coffee farmerBone Density Technician 09/18/22 Zinc Skimmer Relationship Specialty Start Date End Date Jame Hunt MD [address] [place] [address] PCP - General Internal Medicine 08/15/16 [facility] [address] [place] [address] Pharmacist Pharmacy 07/17/18 Vaughn Reeves RN [facility] [address] [place] [address] Registered Nurse Transplant Center 04/13/19 Ricki Dc MD [address] [place] [address] [place] [address] Trim Crew Supervisor Nephrology 01/11/20 Vicente Vargas MD [address] [place] [address] Cardiology 04/05/21 Sienna Miller RN Bone Density Technician 09/18/22 Zinc Skimmer Relationship Specialty Start Date End Date Jame Hunt MD [address] [place] [address] PCP - General Internal Medicine 08/15/16 [facility] [address] [place] [address] Pharmacist Pharmacy 07/17/18 Vaughn Reeves RN [facility] [address] [place] [address] Registered Nurse Transplant Center 04/13/19 Ricki Dc MD [address] [place] [address] Trim Crew Supervisor Nephrology 01/11/20 Vicente Vargas MD [address] [place] [address] Cardiology 04/05/21 Sienna Miller coffee farmerBone Density Technician 09/18/22 Zinc Skimmer Relationship Specialty Start Date End Date Jame Hunt MD [address] [place] [address] PCP - General Internal Medicine 08/15/16 [facility] [address] [place] [address] Pharmacist Pharmacy 07/17/18 Vaughn Reeves RN [facility] [address] [place] [address] Registered Nurse Transplant Center 04/13/19 Ricki Dc MD [address] [address] Trim Crew Supervisor Nephrology 01/11/20 Vicente Vargas MD [address] [place] [address] Cardiology 04/05/21 Sienna Miller coffee farmerBone Density Technician 09/18/22 Zinc Skimmer Relationship Specialty Start Date End Date Jame Hunt MD [address] [place] [address] PCP - General Internal Medicine 08/15/16 [facility] [address] [place] [address] Pharmacist Pharmacy 07/17/18 Vaughn Reeves RN [facility] [address] [place] [address] Registered Nurse Transplant Center 04/13/19 Ricki Dc MD [address] [place] [address] Trim Crew Supervisor Nephrology 01/11/20 Vicente Vargas MD [address] [place] [address] Cardiology 04/05/21 Sienna Miller, coffee farmerBone Density Technician 09/18/22 Zinc Skimmer Relationship Specialty Start Date End Date Jame Hunt MD [address] [place] [address] PCP - General Internal Medicine 08/15/16 Kim La [facility] [address] [place] [address] Pharmacist Pharmacy 07/17/18 Vaughn Reeves, NIEVES [facility] [address] [place] [address] Registered Nurse Transplant Center 04/13/19 Ricki Dc MD [address] [address] Trim Crew Supervisor Nephrology 01/11/20 Vicente Vargas MD [address] [place] [address] Cardiology 04/05/21 Sienna Miller, coffee farmerBone Density Technician 09/18/22 Zinc Skimmer Relationship Specialty Start Date End Date Jame Hunt MD [address] [place] [address] PCP - General Internal Medicine 08/15/16 [facility] [address] [place] [address] Pharmacist Pharmacy 07/17/18 Vaughn Reeves RN [facility] [address] [place] [address] Registered Nurse Transplant Center 04/13/19 Ricki Dc MD [address] [address] Trim Crew Supervisor Nephrology 01/11/20 Vicente Vargas MD [address] [place] [address] Cardiology 04/05/21 Sienna Miller, coffee farmerBone Density Technician 09/18/22 Zinc Skimmer Relationship Specialty Start Date End Date Jame Hunt MD [address] [place] [address] PCP - General Internal Medicine 08/15/16 Kim La, [facility] [address] [place] [address] Pharmacist Pharmacy 07/17/18 Vaughn Reeves RN [facility] [address] [place] [address] Registered Nurse Transplant Center 04/13/19 Ricki Dc MD [address] [address] Trim Crew Supervisor Nephrology 01/11/20 Vicente Vargas MD [address] [place] [address] (Fax) Cardiology 04/05/21 Sienna Miller, coffee farmerBone Density Technician 09/18/22 Zinc Skimmer Relationship Specialty Start Date End Date Jame Hunt MD [address] [place] [address] PCP - General Internal Medicine 08/15/16 [facility] [address] [place] [address] Pharmacist Pharmacy 07/17/18 Vaughn Reeves RN [facility] [address] [place] [address] Registered Nurse Transplant Center 04/13/19 Ricki Dc MD [address] [place] [address] Trim Crew Supervisor Nephrology 01/11/20 Vicente Vargas MD [address] [place] [address] Cardiology 04/05/21 Sienna Miller RN Bone Density Technician 09/18/22 Zinc Skimmer Relationship Specialty Start Date End Date Jame Hunt MD [address] [place] [address] PCP - General Internal Medicine 08/15/16 [facility] [address] [place] [address] Pharmacist Pharmacy 07/17/18 Vaughn Reeves RN [facility] [address] [place] [address] Registered Nurse Transplant Center 04/13/19 Ricki Dc MD [address] [place] [address] Trim Crew Supervisor Nephrology 01/11/20 Vicente Vargas MD [address] [place] [address] Cardiology 04/05/21 Sienna Miller RN Bone Density Technician 09/18/22 Zinc Skimmer Relationship Specialty Start Date End Date Jame Hunt MD [address] [place] [address] PCP - General Internal Medicine 08/15/16 Kim La, [facility] [address] [place] [address] Pharmacist Pharmacy 07/17/18 Vaughn Reeves RN [facility] [address] [place] [address] Registered Nurse Transplant Center 04/13/19 Ricki Dc MD [address] [place] [address] [place] [address] Trim Crew Supervisor Nephrology 01/11/20 Vicente Vargas MD [address] [place] [address] Cardiology 04/05/21 Sienna Miller, coffee farmerBone Density Technician 09/18/22 Zinc Skimmer Relationship Specialty Start Date End Date Jame Hunt MD [address] [place] [address] PCP - General Internal Medicine 08/15/16 Kim La, [facility] [address] [place] [address] Pharmacist Pharmacy 07/17/18 Vaughn Reeves RN [facility] [address] [place] [address] Registered Nurse Transplant Center 04/13/19 Ricki Dc MD [address] [place] [address] [place] [address] Trim Crew Supervisor Nephrology 01/11/20 Vicente Vargas MD [address] [place] [address] Cardiology 04/05/21 Sienna Miller, coffee farmerBone Density Technician 09/18/22 Zinc Skimmer Relationship Specialty Start Date End Date Jame Hunt MD [address] [place] [address] PCP - General Internal Medicine 08/15/16 [facility] [address] [place] [address] Pharmacist Pharmacy 07/17/18 Vaughn Reeves RN [facility] [address] [place] [address] Registered Nurse Transplant Center 04/13/19 Ricki Dc MD [address] [place] [address] [place] [address] Trim Crew Supervisor Nephrology 01/11/20 Vicente Vargas MD [address] [place] [address] Cardiology 04/05/21 Sienna Miller RN Bone Density Technician 09/18/22 Zinc Skimmer Relationship Specialty Start Date End Date Jame Hunt MD [address] [place] [address] PCP - General Internal Medicine 08/15/16 [facility] [address] [place] [address] Pharmacist Pharmacy 07/17/18 Vaughn Reeves RN [facility] [address] [place] [address] Registered Nurse Transplant Center 04/13/19 Ricki Dc MD [address] [address] Trim Crew Supervisor Nephrology 01/11/20 Vicente Vargas MD [address] [place] [address] Cardiology 04/05/21 Sienna Miller coffee farmerBone Density Technician 09/18/22 Zinc Skimmer Relationship Specialty Start Date End Date Jame Hunt MD [address] [place] [address] PCP - General Internal Medicine 08/15/16 Kim La [facility] [address] [place] [address] Pharmacist Pharmacy 07/17/18 Vaughn Reeves RN [facility] [address] [place] [address] Registered Nurse Transplant Center 04/13/19 Ricki Dc MD [address] [address] Trim Crew Supervisor Nephrology 01/11/20 Vicente Vargas MD [address] [place] [address] Cardiology 04/05/21 Sienna Miller coffee farmerBone Density Technician 09/18/22 Zinc Skimmer Relationship Specialty Start Date End Date Jame Hunt MD [address] [place] [address] PCP - General Internal Medicine 08/15/16 Kim La, [facility] [address] [place] [address] Pharmacist Pharmacy 07/17/18 Vaughn Reeves RN [facility] [address] [place] [address] Registered Nurse Transplant Center 04/13/19 Ricki Dc MD [address] [facility] [address] [place] [address] Trim Crew Supervisor Nephrology 01/11/20 Vicente Vargas MD [address] [place] [address] Cardiology 04/05/21 Roxie Palmer, NIEVES [address] [place] [address] Bone Density Technician 09/11/2108/06 Zinc Skimmer Relationship Specialty Start Date End Date Jame Hunt MD [address] [place] [address] PCP - General Internal Medicine 08/15/16 Kim La [facility] [address] [place] [address] Pharmacist Pharmacy 07/17/18 Vaughn Reeves, NIEVES [facility] [address] [place] [address] Registered Nurse Transplant Center 04/13/19 Ricki Dc MD [address] [address] Trim Crew Supervisor Nephrology 01/11/20 Vicente Vargas MD [address] [place] [address] Cardiology 04/05/21 Sienna Miller RN Bone Density Technician 09/18/22 Zinc Skimmer Relationship Specialty Start Date End Date Jame Hunt MD [address] [place] [address] PCP - General Internal Medicine 08/15/16 Kim La [facility] [address] [place] [address] Pharmacist Pharmacy 07/17/18 Vaughn Reeves RN [facility] [address] [place] [address] Registered Nurse Transplant Center 04/13/19 Ricki Dc MD [address] [place] [address] [place] [address] Trim Crew Supervisor Nephrology 01/11/20 Vicente Vargas MD [address] [place] [address] Cardiology 04/05/21 Sienna Miller RN Bone Density Technician 09/18/22 Lizeth Bey MD [address] [place], [place] [id number] Primary Staff Physician Cardiology 01/10/23 Zinc Skimmer Relationship Specialty Start Date End Date Jame Hunt MD [address] [place], [place] [id number] PCP - General Internal Medicine 08/15/16 [facility] [address] [place] [address] Pharmacist Pharmacy 07/17/18 Vaughn Reeves RN [facility] [address] [place] [address] Registered Nurse Transplant Center 04/13/19 Ricki Dc MD [address] [place] [address] [place] [address] Trim Crew Supervisor Nephrology 01/11/20 Vicente Vargas MD [address] [place] [address] Cardiology 04/05/21 Sienna Miller, coffee farmerBone Density Technician 09/18/22 Lizeth Bey MD [address] [place] [address] Primary Staff Physician Cardiology 01/10/23 Zinc Skimmer Relationship Specialty Start Date End Date Jame Hunt MD [address] [place] [address] PCP - General Internal Medicine 08/15/16 Kim La [address] [address] Pharmacist Pharmacy 07/17/18 Vaughn Reeves RN [facility] [address] [place] [address] Registered Nurse Transplant Center 04/13/19 Ricki Dc MD [address] [address] Trim Crew Supervisor Nephrology 01/11/20 Vicente Vargas MD [address] [place] [address] Cardiology 04/05/21 Sienna Miller RN Bone Density Technician 09/18/22 Lizeth Bey MD [address] [place] [address] Primary Staff Physician Cardiology 01/10/23 Zinc Skimmer Relationship Specialty Start Date End Date Jame Hunt MD [address] [place] [address] PCP - General Internal Medicine 08/15/16 [facility] [address] [place] [address] Pharmacist Pharmacy 07/17/18 Vaughn Reeves RN [facility] [address] [place] [address] Registered Nurse Transplant Center 04/13/19 Ricki Dc MD [address] [place] [address] [place] [address] Trim Crew Supervisor Nephrology 01/11/20 Vicente Vargas MD [address] [place] [address] (Fax) Cardiology 04/05/21 Sienna Miller coffee farmerBone Density Technician 09/18/22 Lizeth Bey MD [address] [place] [address] Primary Staff Physician Cardiology 01/10/23 Zinc Skimmer Relationship Specialty Start Date End Date Jame Hunt MD [address] [place] [address] PCP - General Internal Medicine 08/15/16 Kim La, [facility] [address] [place] [address] Pharmacist Pharmacy 07/17/18 Vaughn Reeves RN [facility] [address] [place] [address] Registered Nurse Transplant Center 04/13/19 Ricki Dc MD [address] [address] Trim Crew Supervisor Nephrology 01/11/20 Vicente Vargas MD [address] [place] [address] (Fax) Cardiology 04/05/21 Sienna Miller, coffee farmerBone Density Technician 09/18/22 Lizeth Bey MD [address] [place] [address] Primary Staff Physician Cardiology 01/10/23 Zinc Skimmer Relationship Specialty Start Date End Date Jame Hunt MD [address] [place] [address] PCP - General Internal Medicine 08/15/16 [facility] [address] [place] [address] Pharmacist Pharmacy 07/17/18 Vaughn Reeves RN [facility] [address] [place] [address] Registered Nurse Transplant Center 04/13/19 Ricki Dc MD [address] [address] Trim Crew Supervisor Nephrology 01/11/20 Vicente Vargas MD [address] [place] [address] Cardiology 04/05/21 Sienna Miller coffee farmerBone Density Technician 09/18/22 Lizeth Bey MD [address] [place] [address] Primary Staff Physician Cardiology 01/10/23 Zinc Skimmer Relationship Specialty Start Date End Date Jame Hunt MD [address] [place] [address] PCP - General Internal Medicine 08/15/16 Kim La [facility] [address] [place] [address] Pharmacist Pharmacy 07/17/18 Vaughn Reeves, NIEVES [facility] [address] [place] [address] Registered Nurse Transplant Center 04/13/19 Ricki Dc MD [address] [address] Trim Crew Supervisor Nephrology 01/11/20 Vicente Vargas MD [address] [place] [address] Cardiology 04/05/21 Sienna Miller RN Bone Density Technician 09/18/22 Lizeth Bey MD [address] [place] [address] Primary Staff Physician Cardiology 01/10/23 FOR RECORDS [...] BE BASED ON THE PRIMARY CLINICAL RECORDS. [facility]. provides no warranty or guarantee of the accuracy or completeness of information in this document.
[2023-04-15 08:22] LABS: Hematocrit 27.7 % (37-47); Hemoglobin 8.2 g/dL (12.0-15.0); Mean Corp Hgb Conc 29.6 g/dL (32-36); Mean Corpuscular Hgb 28.4 pg (27.0-32.0); Mean Corpuscular Volume 95.8 fL (81-99); Mean Platelet Vol. 9.9 fl (6.2-12.0); POSITIVE COUNT YES; POSITIVE MORPHOLOGY YES; Platelet Count 73 K/mm3 (150-450); RBC Distribution Width CV 19.3 % (11.6-14.6); Red Blood Count 2.89 M/mm3 (4.2-5.4); White Blood Count 2.4 K/mm3 (4.4-11.0)
[2023-04-15 08:30] LABS: Scan Indicated on CBC? Y/N YES- FLAGS NOTED
[2023-04-15 10:57] LABS: Anion Gap 7 (5-15); BUN 44 mg/dL (7-18); BUN/Creat Ratio 5.7 RATIO (10-20); Calcium,Total 8.7 mg/dL (8.5-10.1); Chloride 97 mmol/L (98-107); Creatinine, Serum 7.66 mg/dL (0.55-1.02); EST Glomerular Filtration Rate 6 mL/min (>60); Est Glom Filt Rate - Afr Amer 7 mL/min (>60); Glucose 113 mg/dL (74-106); Magnesium 2.7 mg/dL (1.6-2.6); Potassium 4.7 mmol/L (3.5-5.1); Sodium Level 133 mmol/L (136-145)
== END ==
LOC: OLS.SW 05:00
PROVIDERS: PCP Internal Medicine; Visit Provider Internal Medicine
DX: J44.9 Chronic obstructive pulmonary disease, unspecified (principal); I13.2 Hypertensive heart and chronic kidney disease with heart failure and with stage 5 chronic kidney disease, or end stage renal disease; E11.22 Type 2 diabetes mellitus with diabetic chronic kidney disease; N18.6 End stage renal disease; I50.32 Chronic diastolic (congestive) heart failure; Z94.4 Liver transplant status
CPT/HCPCS: 36415; 80048; 83735; 85027

== ENCOUNTER → 2023-05-09 | Outpatient (REF) | payer MEDICARE, MEDICAID, SELFPAY ==
[2023-05-09 09:11] LABS: Hemoglobin 9.4 g/dL (12.0-15.0); Mean Corp Hgb Conc 30.3 g/dL (32-36); Mean Corpuscular Hgb 28.6 pg (27.0-32.0); Mean Corpuscular Volume 94.2 fL (81-99); Mean Platelet Vol. 10.4 fl (6.2-12.0); POSITIVE COUNT YES; Platelet Count 78 K/mm3 (150-450); RBC Distribution Width CV 17.9 % (11.6-14.6); Red Blood Count 3.29 M/mm3 (4.2-5.4)
[2023-05-09 09:17] LABS: Anion Gap 10 (5-15); BUN 36 mg/dL (7-18); BUN/Creat Ratio 5.6 RATIO (10-20); Calcium,Total 8.9 mg/dL (8.5-10.1); Chloride 99 mmol/L (98-107); Creatinine, Serum 6.45 mg/dL (0.55-1.02); EST Glomerular Filtration Rate 7 mL/min (>60); Est Glom Filt Rate - Afr Amer 8 mL/min (>60); Glucose 209 mg/dL (74-106); Magnesium 2.5 mg/dL (1.6-2.6); Potassium 3.9 mmol/L (3.5-5.1); Sodium Level 138 mmol/L (136-145)
== END ==
LOC: OLS.SW 05:00
PROVIDERS: PCP Internal Medicine; Visit Provider Internal Medicine
DX: E11.22 Type 2 diabetes mellitus with diabetic chronic kidney disease (principal); E78.5 Hyperlipidemia, unspecified; N18.9 Chronic kidney disease, unspecified
CPT/HCPCS: 36415; 80048; 83735; 85027

== ENCOUNTER → 2023-05-15 | Outpatient (REF) | payer MEDICARE, MEDICAID, SELFPAY ==
[2023-05-15 08:01] LABS: Absolute Lymphocyte Count 0.64 X10^3/uL (0.83-4.51); Absolute Neutrophil Count 2.5 X10^3/uL (2.0-7.7); Basophil# 0.01 X10^3/uL; Basophil% 0.3 % (0-1); Eosinophil# 0.11 X10^3/uL; Eosinophils% 3.1 % (0-5); Hematocrit 26.8 % (37-47); Hemoglobin 8.4 g/dL (12.0-15.0); Lymphocyte # 0.64 X10^3/ul (0.83-4.51); Lymphocyte % 17.8 % (19-41); Mean Corp Hgb Conc 31.3 g/dL (32-36); Mean Corpuscular Hgb 29.5 pg (27.0-32.0); Mean Platelet Vol. 11.2 fl (6.2-12.0); Monocyte# 0.29 X10^3/uL; Monocyte% 8.1 % (0-10); NRBC Flagged by Analyzer 0 % (0-5); Neutrophil # 2.51 X10^3/uL (2.7-7.7); Neutrophil % 69.6 % (47-70); POSITIVE COUNT YES; Platelet Count 74 K/mm3 (150-450); RBC Distribution Width CV 17.9 % (11.6-14.6); RBC Distribution Width SD 61.1 fl (35.1-43.9); Red Blood Count 2.85 M/mm3 (4.2-5.4); White Blood Count 3.6 K/mm3 (4.4-11.0)
[2023-05-15 08:50] LABS: ALB/GLOB Ratio 0.7 RATIO (0.9-2.4); AST(SGOT) 16 U/L (15-37); Alanine Aminotransfer ALT/SGPT 21 U/L (13-56); Albumin, Serum 2.3 g/dL (3.2-5.0); Alkaline Phosphatase 125 U/L (45-117); Anion Gap 7 (5-15); BUN 31 mg/dL (7-18); BUN/Creat Ratio 5.9 RATIO (10-20); Calcium,Total 8.7 mg/dL (8.5-10.1); Chloride 98 mmol/L (98-107); Creatinine, Serum 5.27 mg/dL (0.55-1.02); EST Glomerular Filtration Rate 9 mL/min (>60); Est Glom Filt Rate - Afr Amer 11 mL/min (>60); Globulin 3.4 g/dL (2.2-4.2); Glucose 169 mg/dL (74-106); Potassium 3.4 mmol/L (3.5-5.1); Protein, Total 5.7 g/dL (6.4-8.2); Sodium Level 136 mmol/L (136-145)
== END ==
LOC: OLS.SW 05:45
PROVIDERS: PCP Internal Medicine; Referring Provider Internal Medicine; Visit Provider Internal Medicine
DX: J44.9 Chronic obstructive pulmonary disease, unspecified (principal); E78.5 Hyperlipidemia, unspecified; E03.9 Hypothyroidism, unspecified; E11.9 Type 2 diabetes mellitus without complications; Z94.4 Liver transplant status; D50.9 Iron deficiency anemia, unspecified; Z85.41 Personal history of malignant neoplasm of cervix uteri
CPT/HCPCS: 36415; 80053; 85025

== ENCOUNTER → 2023-05-16 | Outpatient (REF) | payer MEDICARE, MEDICAID, SELFPAY ==
[2023-05-16 08:41] LABS: Hematocrit 28.2 % (37-47); Hemoglobin 8.4 g/dL (12.0-15.0); Mean Corp Hgb Conc 29.8 g/dL (32-36); Mean Corpuscular Hgb 28.2 pg (27.0-32.0); Mean Corpuscular Volume 94.6 fL (81-99); Mean Platelet Vol. 11.2 fl (6.2-12.0); POSITIVE COUNT YES; Platelet Count 61 K/mm3 (150-450); RBC Distribution Width CV 17.9 % (11.6-14.6); Red Blood Count 2.98 M/mm3 (4.2-5.4); White Blood Count 3.1 K/mm3 (4.4-11.0)
[2023-05-16 10:22] LABS: Anion Gap 9 (5-15); BUN 40 mg/dL (7-18); BUN/Creat Ratio 6.1 RATIO (10-20); Chloride 97 mmol/L (98-107); EST Glomerular Filtration Rate 7 mL/min (>60); Est Glom Filt Rate - Afr Amer 8 mL/min (>60); Glucose 147 mg/dL (74-106); Magnesium 2.9 mg/dL (1.6-2.6); Potassium 3.5 mmol/L (3.5-5.1); Sodium Level 135 mmol/L (136-145)
== END ==
LOC: OLS.SW 05:00
PROVIDERS: PCP Internal Medicine; Visit Provider Internal Medicine
DX: E78.5 Hyperlipidemia, unspecified (principal); E03.9 Hypothyroidism, unspecified; I13.2 Hypertensive heart and chronic kidney disease with heart failure and with stage 5 chronic kidney disease, or end stage renal disease; I50.32 Chronic diastolic (congestive) heart failure; D50.9 Iron deficiency anemia, unspecified; N18.6 End stage renal disease; Z94.4 Liver transplant status
CPT/HCPCS: 36415; 80048; 83735; 85027

== ENCOUNTER → 2023-05-23 | Outpatient (REF) | payer MEDICARE, MEDICAID, SELFPAY ==
[2023-05-23 08:51] LABS: Hematocrit 31.2 % (37-47); Hemoglobin 9.3 g/dL (12.0-15.0); Mean Corp Hgb Conc 29.8 g/dL (32-36); Mean Corpuscular Hgb 28.4 pg (27.0-32.0); Mean Corpuscular Volume 95.4 fL (81-99); Mean Platelet Vol. 10.5 fl (6.2-12.0); POSITIVE COUNT YES; Platelet Count 97 K/mm3 (150-450); RBC Distribution Width SD 62.8 fl (35.1-43.9); Red Blood Count 3.27 M/mm3 (4.2-5.4); White Blood Count 4.7 K/mm3 (4.4-11.0)
[2023-05-23 08:52] LABS: Scan Indicated on CBC? Y/N NO
[2023-05-23 09:43] LABS: Anion Gap 6 (5-15); BUN 45 mg/dL (7-18); BUN/Creat Ratio 6.1 RATIO (10-20); Calcium,Total 8.9 mg/dL (8.5-10.1); Chloride 97 mmol/L (98-107); Creatinine, Serum 7.36 mg/dL (0.55-1.02); EST Glomerular Filtration Rate 6 mL/min (>60); Est Glom Filt Rate - Afr Amer 7 mL/min (>60); Glucose 163 mg/dL (74-106); Magnesium 2.6 mg/dL (1.6-2.6); Potassium 4.5 mmol/L (3.5-5.1); Sodium Level 134 mmol/L (136-145)
== END ==
LOC: OLS.SW 05:00
PROVIDERS: PCP Internal Medicine; Visit Provider Internal Medicine
DX: J44.9 Chronic obstructive pulmonary disease, unspecified (principal); E78.5 Hyperlipidemia, unspecified; E03.9 Hypothyroidism, unspecified; E11.22 Type 2 diabetes mellitus with diabetic chronic kidney disease; N18.9 Chronic kidney disease, unspecified; Z99.2 Dependence on renal dialysis; Z94.4 Liver transplant status; G25.81 Restless legs syndrome; D50.9 Iron deficiency anemia, unspecified; I50.32 Chronic diastolic (congestive) heart failure
CPT/HCPCS: 36415; 80048; 83735; 85027

== ENCOUNTER → 2023-05-31 | Outpatient (REF) | payer MEDICARE, MEDICAID, SELFPAY ==
[2023-05-31 08:26] LABS: Hematocrit 28.1 % (37-47); Hemoglobin 8.4 g/dL (12.0-15.0); Mean Corp Hgb Conc 29.9 g/dL (32-36); Mean Corpuscular Hgb 28.2 pg (27.0-32.0); Mean Corpuscular Volume 94.3 fL (81-99); Mean Platelet Vol. 10.7 fl (6.2-12.0); POSITIVE COUNT YES; Platelet Count 98 K/mm3 (150-450); RBC Distribution Width CV 17.3 % (11.6-14.6); RBC Distribution Width SD 60.4 fl (35.1-43.9); Red Blood Count 2.98 M/mm3 (4.2-5.4); White Blood Count 4.6 K/mm3 (4.4-11.0)
[2023-05-31 08:39] LABS: Anion Gap 6 (5-15); BUN 31 mg/dL (7-18); BUN/Creat Ratio 6.2 RATIO (10-20); Calcium,Total 9.1 mg/dL (8.5-10.1); Chloride 96 mmol/L (98-107); Creatinine, Serum 4.99 mg/dL (0.55-1.02); EST Glomerular Filtration Rate 9 mL/min (>60); Est Glom Filt Rate - Afr Amer 11 mL/min (>60); Glucose 112 mg/dL (74-106); Magnesium 2.4 mg/dL (1.6-2.6); Potassium 3.7 mmol/L (3.5-5.1); Sodium Level 132 mmol/L (136-145)
== END ==
LOC: OLS.SW 04:40
PROVIDERS: PCP Internal Medicine; Visit Provider Internal Medicine
DX: E11.22 Type 2 diabetes mellitus with diabetic chronic kidney disease (principal); N18.9 Chronic kidney disease, unspecified
CPT/HCPCS: 36415; 80048; 83735; 85027

== ENCOUNTER 2023-06-02 12:04 | Emergency (ER) | payer MEDICARE, MEDICAID, SELFPAY ==
[2023-06-02 12:05] VITALS: BP 133/90; PULSE 77; RESP 18; TEMP 36.3; O2SAT 94
--- NOTE | 2023-06-02 12:36 | CT_ITS ---
STUDY: CT ABDOMEN AND PELVIS WITH CONTRAST REASON FOR EXAM: Female, 67 years old. Diffuse abd pain RADIATION DOSAGE (If Supplied By Facility): CTDIvol = ( 16.86 ) mGy, DLP = ( 1189.18 ) mGycm TECHNIQUE: IV 100mL Isovue-370 was administered. Transaxial images were obtained from the dome of the diaphragm to the symphysis pubis. Multiplanar coronal and sagittal images were reformatted. Individualized Dose Optimization Techniques Were Used For This CT. COMPARISON: No relevant prior comparison study available FINDINGS: Spiculated 1.3 cm pleural-based right lower lobe nodule for which follow-up noncontrast CT scan of the chest in 3 months or correlation with PET scan is recommended. The visualized portions of the heart are within normal limits. Coronary calcifications.. Hepatic steatosis. No focal lesion is seen. Status post cholecystectomy. Splenomegaly. The spleen measures about 3 cm in length. Calcifications in the spleen measuring about 2.5 cm. Normal pancreas. Normal bilateral adrenal glands. Normal visualized stomach. Normal in caliber small bowel loops. Thickening of the colon particularly of the ascending, descending and rectosigmoid colon concerning for colitis. There is non-visualization of the appendix. There is diffuse atherosclerotic calcification of the abdominal aorta, without a demonstrated aneurysm. Atherosclerotic calcifications of the splenic artery, celiac axis branches and SMA. No retroperitoneal adenopathy. Markedly atrophic kidneys. 1.2 cm simple cyst in the right kidney for which no further follow-up exam is needed. No evidence of hydronephrosis. Pocket of air within the bladder which could be due to recent catheterization. The bladder is not well distended with thickening of the bladder wall. Cystitis cannot be excluded. Subcutaneous edema and focal thickening of the anterior abdominal wall anteriorly. Left lower quadrant ventral hernia containing fat. Multilevel degenerative changes of the spine. Osteoarthritis of both hips. CT/Abdomen/Pelvis W IV Cont ONLY IMPRESSION: 1. Spiculated 1.3 cm pleural-based right lower lobe nodule for which follow-up noncontrast CT scan of the chest in 3 months or correlation with PET scan is recommended to exclude malignancy. 2. Diffuse thickening of the colon with sparing of the transverse colon consistent with colitis. 3. Hepatic steatosis. 4. Splenomegaly. 5. Left lower quadrant ventral hernia containing fat. 6. Atrophic kidneys. Electronically Signed: David Bliss MD at 13:41 EDT ,
--- NOTE | 2023-06-02 12:55 | ED.VIS.GI ---
HPI HPI - GI History of Present Illness Chief Complaint: Constipation Narrative Narrative: Patient states she was discharged from [facility] 2 days ago, she presents with diffuse abdominal pain and inability to have a bowel movement. She states the symptoms have been present for 3 to 4 months. She states maybe things have been worse in the past week so at [facility] they were giving her Colace. They did an enema once and it did not help anything. She denies any new symptoms. No nausea or vomiting. [facility] Medical History Acute dyspnea Anemia Anemia in chronic kidney disease Anxiety Back pain Blister Cancer Cardiology follow-up encounter Celiac disease Chronic kidney disease, stage 3 Chronic kidney failure Chronic renal failure, stage 5 Cirrhosis COPD (chronic obstructive pulmonary disease) Depression Diabetes Dialysis patient DVT (deep venous thrombosis) DVT (deep venous thrombosis) ESRD (end stage renal disease) Gastric reflux GERD (gastroesophageal reflux disease) History of echocardiogram (~01/22/20) History of edema History of irregular heartbeat History of renal dialysis History of renal disease History of stress test (~12/07/19) History of uterine cancer Hx of Krueger's palsy Hypertension Hypertension Hypothyroidism Infection involving suture with abscess Influenza A Insulin dependent diabetes mellitus Irregular heart beat [employer] Multiple falls Non-smoker Osteoporosis Pancytopenia Pneumonia Sepsis Sleep apnea Thyroid disease Uses wheelchair Walker as ambulation aid Wears dentures Wears glasses Home Medications ascorbic acid (vitamin C) 500 mg chewable tablet 1,000 mg PO DAILY supplement 02/20/15 [History Last Taken 09/09/19] cholecalciferol (vitamin D3) 25 mcg (1,000 unit) tablet 1,000 unit PO BID supplement 02/20/15 [History Last Taken 09/09/19] tacrolimus 1 mg capsule, immediate-release (Prograf) 0.5 mg PO BID REJECTION 09/10/19 [History Last Taken 04/27/21] vitamin B complex 1 tablet PO DAILY SUPPLEMENT 09/10/19 [History Last Taken 09/09/19] carvedilol 25 mg tablet 12.5 mg PO BID heart 02/25/20 [History Last Taken 01/30/23] ropinirole 1 mg tablet 1 mg PO DAILY restless legs 05/23/20 [History Last Taken 06/16/20] ropinirole 2 mg tablet,extended release 24 hr 2 mg PO QHS restless legs 06/10/20 [History Last Taken Unknown] sevelamer carbonate 800 mg tablet (Renvela) 1,600 mg PO TIDCM kidney disease 06/10/20 [History Last Taken Unknown] nitroglycerin 0.4 mg sublingual tablet 0.4 mg sublingual Q5M PRN Cardiac/Chest Pain #30 tabs 04/29/21 [Rx Last Taken Unknown] biotin 1 mg capsule 1 mg PO BID supplement 08/11/21 [History Last Taken Unknown] sertraline 50 mg tablet (Zoloft) 50 mg PO DAILY mood 08/11/21 [History Last Taken Unknown] albuterol sulfate 90 mcg/actuation aerosol inhaler 2 puff IH Q4H PRN PRN Sob &/Or Wheezing 30 days #8.6 grams 10/25/21 [Rx Last Taken Unknown] diphenoxylate-atropine 2.5 mg-0.025 mg tablet (Lomotil) 1 tab PO TID PRN diarrhea #90 tabs 10/27/21 [Rx Last Taken 12/30/22] apremilast 30 mg tablet (Otezla) 30 mg PO DAILY 09/08/22 [History Last Taken Unknown] gabapentin 100 mg capsule 200 mg PO QHS 12/31/22 [History Last Taken Unknown] levothyroxine 88 mcg tablet 88 mcg PO DAILY 12/31/22 [History Last Taken 01/30/23] sucralfate 1 gram tablet (Carafate) 1 g PO BID #30 tabs 12/31/22 [Rx Last Taken Unknown] trazodone 100 mg tablet 200 mg PO QHS 12/31/22 [History Last Taken Unknown] pantoprazole 40 mg tablet,delayed release 40 mg PO BID #60 tabs 01/08/23 [Rx Last Taken Unknown] aspirin 81 mg tablet,delayed release (Adult Aspirin Regimen) 81 mg PO DAILY 01/28/23 [History Last Taken 01/26/23] omega 1-cvy-bkg-fish oil 1,200 mg (144 mg-216 mg) capsule (Fish Oil) 1 cap PO DAILY SUPPLEMENT 01/28/23 [History Last Taken Unknown] bisacodyl 10 mg rectal suppository (Dulcolax (bisacodyl)) 10 mg ND DAILY PRN constipation #30 ea 02/12/23 [Rx Last Taken Unknown] acetaminophen 325 mg capsule 650 mg PO Q4H PRN fever or pain 04/15/23 [History Last Taken Unknown] acetaminophen 650 mg rectal suppository 650 mg ND Q4H PRN fever or pain 04/15/23 [History Last Taken Unknown] aluminum-magnesium hydroxide 225 mg-200 mg/5 mL oral suspension 30 ml PO Q4H PRN PRN GI distress 04/15/23 [History Last Taken Unknown] dextrose 40 % oral gel (Gluco Burst) 15 g PO Q15M PRN hypoglycemia 04/15/23 [History Last Taken Unknown] glucagon HCl 1 mg solution for injection (Glucagon (HCl) Emergency Kit) 1 mg IM Q20M PRN hypoglycemia 04/15/23 [History Last Taken Unknown] guaifenesin 100 mg/5 mL oral liquid 200 mg PO Q4H PRN congestion 04/15/23 [History Last Taken Unknown] insulin lispro 100 unit/mL subcutaneous pen (Humalog KwikPen (U-100) Insulin) 5 unit subcut TIDCM 04/15/23 [History Last Taken Unknown] magnesium hydroxide 400 mg/5 mL oral suspension (Milk of Magnesia) 30 ml PO DAILY PRN constipation 04/15/23 [History Last Taken Unknown] melatonin 10 mg tablet 10 mg PO QHS 04/15/23 [History Last Taken Unknown] midodrine 10 mg tablet 10 mg PO MOTUTHFR 04/15/23 [History Last Taken Unknown] sodium phosphates 19 gram-7 gram/118 mL enema (Enema) 118 ml ND DAILY PRN constipation 04/15/23 [History Last Taken Unknown] torsemide 60 mg tablet 60 mg PO DAILY 04/15/23 [History Last Taken Unknown] hydrocodone-acetaminophen 5-325mg 5mg-325mg 1 tab PO Q6H PRN PRN Pain Score 6-10 2 days #6 tabs 04/19/23 [Rx Last Taken Unknown] insulin glargine-yfgn 100 unit/mL (3 mL) subcutaneous pen 10 unit (0.1 mL) subcut BID #0 mL 04/19/23 [Rx Last Taken Unknown] levofloxacin 500 mg tablet 500 mg PO UD #1 TAB 04/19/23 [Rx Last Taken Unknown] midodrine 5 mg tablet 10 mg (2 x 5 mg) PO TIDCM #0 tabs 04/19/23 [Rx Last Taken Unknown] nystatin 100,000 unit/gram topical powder (Coamy) 1 applic topical BID #0 grams 04/19/23 [Rx Last Taken Unknown] oseltamivir 30 mg capsule 30 mg PO DAILY #1 cap 04/19/23 [Rx Last Taken Unknown] ciprofloxacin HCl 500 mg tablet 500 mg PO BID #14 TABLETS 06/02/23 [Rx Last Taken Unknown] dicyclomine 10 mg capsule 20 mg (2 x 10 mg) PO Q6H PRN PRN abdominal discomfort #30 CAPSULES 06/02/23 [Rx Last Taken Unknown] metronidazole 500 mg tablet 500 mg PO Q12H PRN #14 tabs 06/02/23 [Rx Last Taken Unknown] Allergy/AdvReac Type Severity Reaction Status Date / Time amlodipine [From Norvasc] Allergy Severe Hives Verified 06/02/23 12:08 ampicillin sodium Allergy Severe Hives Verified 06/02/23 12:08 [From Unasyn] buspirone HCl [From BuSpar] Allergy Severe Hives Verified 06/02/23 12:08 cefadroxil [From Duricef] Allergy Severe Hives Verified 06/02/23 12:08 lisinopril Allergy Severe Swelling Verified 06/02/23 12:08 naproxen Allergy Severe Hives Verified 06/02/23 12:08 niacin Allergy Severe Hives Verified 06/02/23 12:08 [From Niaspan Extended-Release] sulbactam sodium Allergy Severe Hives Verified 06/02/23 12:08 [From Unasyn] Sulfa (Sulfonamide Allergy Severe Hives Verified 04/15/23 20:55 Antibiotics) cephalexin [From Keflex] Allergy Vomiting Verified 06/02/23 12:08 omeprazole AdvReac Severe Other Verified 06/02/23 12:08 losartan AdvReac Swelling Verified 06/02/23 12:08 Family History Mother Diabetes Anemia Father Hypertension LUNG/RESPIRATORY DISEASE Surgical History History of appendectomy History of cardiac catheterization History of cholecystectomy History of coronary artery stent placement History of coronary artery stent placement History of left knee surgery History of left salpingo-oophorectomy History of liver transplant History of radical hysterectomy History of ventral hernia repair S/P arteriovenous (AV) fistula creation (~06/16/20) Social History housing: apartment current occupational status: disabled Smoking Status: Never smoker substance use type: does not use ROS ROS ED Constitutional Constitutional ED: Denies chills or fever(s) Eyes Eyes: Denies change in vision or diplopia ENT ENT ED: Denies rhinorrhea or sore throat Cardiovascular Cardiovascular: Denies chest pain or palpitations Respiratory/Chest Respiratory/Chest: Denies cough or dyspnea Gastrointestinal Gastrointestinal: Reports abdominal pain and constipation; Denies melena, nausea or vomiting Genitourinary Genitourinary ED: Denies dysuria or hematuria Musculoskeletal Musculoskeletal: Denies back pain or neck pain Integumentary Denies abscess or rash Neurologic Neurologic: Denies headache(s), paresthesias or weakness Psychiatric Psychiatric: Denies suicidal thoughts EXAM Physical Exam Const Vital Signs: 06/02/23 12:05 06/02/23 14:05 Temperature 97.4 F L Temperature Source Temporal Pulse Rate 77 76 Respiratory Rate 18 16 Blood Pressure 133/90 H 134/76 H Blood Pressure Mean 104 95 Pulse Ox 94 98 Oxygen Delivery Method Room Air Room Air Positive well nourished and well developed General Appearance ED: well developed and NAD HEENT Reports moist mucous membranes normocephalic and atraumatic Eyes PERRL and EOMs intact bilaterally Neck full ROM and supple Resp normal respiratory effort and clear to auscultation bilaterally Cardio regular rate, regular rhythm and no murmurs GI non-distended GI Narrative: Diffuse tenderness. No guarding or rebound. Rectal: No tenderness, nonbloody nonmelanotic stool, no hard stool felt. Auscultation: normoactive bowel sounds Palpation: soft Back/Spine no CVA tenderness General Back: other FROM Extremity normal to inspection General Extremety ED: Yes edema; Negative for pulses abnormal or tenderness General Extremity: edema bilateral lower extremity Details: mild; Negative for pulses abnormal Neuro oriented x3, CN's II-XII intact bilaterally and no sensory deficits noted Sensorium / Orientation: awake and alert Motor Exam: strength 5/5 throughout Psych thought process normal Mood & Affect: anxious Skin no rashes or lesions noted and no wounds MDM MDM MDM Narrative Medical decision making narrative: Labs obtained and noted, liver enzymes and lipase within normal limits. Chronic poor renal function is noted, she is a dialysis patient. CT of the abdomen pelvis was obtained and she was treated with analgesics and Zofran. I reviewed the images and the report which I agree with, basically showing pancolitis with the transverse colon being fairly spared. There is quite a bit of inflammation there on the images. Does not appear to be diverticulitis. She has not been passing any blood but she has been passing mucus and it sound like she is having tenesmus. This is consistent with inflammatory colitis. She is a patient of GI doctor friend but he is not available this weekend, I discussed with Dr. Lu who was on for surgery. He agrees patient can be discharged to follow-up with GI as an outpatient, he recommends Cipro and Flagyl for right now as well as prednisone. Discussed all this with the patient, she refuses prednisone, she states she is diabetic and in addition to that she does not like the way it makes her feel even if it does help her abdominal pain. Therefore I will prescribe her dicyclomine. Dr. Lu recommended a calprotectin, this is ordered if the patient is able to give us a stool sample we will send for that. Lab Data Attestation: I reviewed the patient's lab results. Labs: Laboratory Results - last 24 hr 06/02/23 12:45 WBC 3.3 L RBC 3.06 L Hgb 8.7 L Hct 28.7 L MCV 93.8 MCH 28.4 MCHC 30.3 L RDW Std Deviation 59.3 H RDW Coeff of Tami 17.1 H Plt Count 98 L MPV 9.6 Immature Gran % (Auto) 1.800 H Neut % (Auto) 74.4 H Lymph % (Auto) 14.2 L Ber[place] % (Auto) 6.6 Eos % (Auto) 2.7 Baso % (Auto) 0.3 Absolute Neuts (auto) 2.5 Absolute Lymphs (auto) 0.47 L Nucleated RBC % 0 Platelet Estimate SLT DEC Anisocytosis 1+ Sodium 134 L Potassium 4.6 Chloride 98 Carbon Dioxide 28.0 Anion Gap 8 BUN 51 H Creatinine 7.39 H Est GFR (MDRD) Af Amer 7 L Est GFR (MDRD) Non-Af 6 L BUN/Creatinine Ratio 6.9 L Glucose 188 H Calcium 8.6 Total Bilirubin 0.40 AST 20 ALT 28 Alkaline Phosphatase 111 Total Protein 5.7 L Albumin 2.3 L Globulin 3.4 Albumin/Globulin Ratio 0.7 L Lipase 23 Radiography Diagnostic Testing: Clinical Impression(s) from Imaging Studies Abdomen/Pelvis CT 06/02/23 12:36 IMPRESSION: 1. Spiculated 1.3 cm pleural-based right lower lobe nodule for which follow-up noncontrast CT scan of the chest in 3 months or correlation with PET scan is recommended to exclude malignancy. 2. Diffuse thickening of the colon with sparing of the transverse colon consistent with colitis. 3. Hepatic steatosis. 4. Splenomegaly. 5. Left lower quadrant ventral hernia containing fat. 6. Atrophic kidneys. Electronically Signed: David Bliss MD at 13:41 EDT , Discharge Plan Triage Chief Complaint: Constipation ED Provider: Charbel Thao Dx/Rx/DC Orders Clinical Impression: Colitis Instructions: ED Understanding Colitis Prescriptions: New dicyclomine 10 mg capsule 20 mg PO Q6H PRN PRN (Reason: abdominal discomfort) Qty: 30 0RF metronidazole [metronidazole] 500 mg tablet 500 mg PO Q12H PRN Qty: 14 0RF ciprofloxacin HCl [ciprofloxacin HCl] 500 mg tablet 500 mg PO BID Qty: 14 0RF No Action pantoprazole 40 mg tablet,delayed release (DR/EC) 40 mg PO BID Qty: 60 2RF bisacodyl [Dulcolax (bisacodyl)] 10 mg suppository 10 mg ND DAILY PRN (Reason: constipation) Qty: 30 0RF ascorbic acid (vitamin C) 500 MG tablet,chewable 1,000 mg PO DAILY Patient Comments: supplement cholecalciferol (vitamin D3) 1,000 UNIT tablet 1,000 unit PO BID Patient Comments: bone health ropinirole 1 mg tablet 1 mg PO DAILY tacrolimus [Prograf] 1 MG capsule 0.5 mg PO BID vitamin B complex 1 EACH tablet 1 tablet PO DAILY carvedilol 25 MG tablet 12.5 mg PO BID sevelamer carbonate [Renvela] 800 MG tablet 1,600 mg PO TIDCM ropinirole 2 MG tablet extended release 24 hr 2 mg PO QHS nitroglycerin 0.4 mg Tablet, Sublingual 0.4 mg sublingual Q5M PRN (Reason: Cardiac/Chest Pain) Qty: 30 0RF sertraline [Zoloft] 50 MG tablet 50 mg PO DAILY Patient Comments: depression biotin 1 mg Capsule 1 mg PO BID albuterol sulfate 1 PUFF inhaler 2 puff IH Q4H PRN PRN (Reason: Sob &/Or Wheezing) 30 Days Qty: 8.6 0RF Otezla 30 mg tablet 30 mg PO DAILY acetaminophen 650 mg suppository 650 mg ND Q4H PRN (Reason: fever or pain) acetaminophen 325 mg capsule 650 mg PO Q4H PRN (Reason: fever or pain) aluminum-magnesium hydroxide 225-200 mg/5 mL suspension 30 ml PO Q4H PRN PRN (Reason: GI distress) Enema 19-7 gram/118 mL enema 118 ml ND DAILY PRN (Reason: constipation) melatonin 10 mg tablet 10 mg PO QHS midodrine 10 mg tablet 10 mg PO MOTUTHFR Rx Instructions: afternoon torsemide 60 mg tablet 60 mg PO DAILY magnesium hydroxide [Milk of Magnesia] 400 mg/5 mL suspension 30 ml PO DAILY PRN (Reason: constipation) insulin lispro [Humalog KwikPen Insulin] 100 unit/mL insulin pen 5 unit subcut TIDCM glucagon HCl [Glucagon (HCl) Emergency Kit] 1 mg recon soln 1 mg IM Q20M PRN (Reason: hypoglycemia) Rx Instructions: until target blood sugar attained dextrose [Gluco Burst] 40 % gel 15 g PO Q15M PRN (Reason: hypoglycemia) Rx Instructions: until symptoms of low blood sugar are controlled guaifenesin 100 mg/5 mL liquid 200 mg PO Q4H PRN (Reason: congestion) hydrocodone-acetaminophen 5-325 mg Tablet 1 tab PO Q6H PRN PRN (Reason: Pain Score 6-10) 2 Days Qty: 6 0RF midodrine 5 mg Tablet 10 mg PO TIDCM Qty: 0 0RF nystatin [Nyamyc] 100,000 unit/gram Powder 1 applic topical BID Qty: 0 0RF Protocol: *Topical Application Instructions APPLICATION INSTRUCTIONS: apply to abdominal folds insulin glargine-yfgn 100 unit/mL (3 mL) Insulin Pen 10 unit subcut BID Qty: 0 0RF oseltamivir 30 mg Capsule 30 mg PO DAILY Qty: 1 0RF Rx Instructions: Give 1 dose on 04/20/2023 and discontinue after that levofloxacin 500 mg tablet 500 mg PO UD Qty: 1 0RF Rx Instructions: Give 1 dose on 04/20/2023 then discontinue levothyroxine 88 mcg tablet 88 mcg PO DAILY trazodone 100 mg tablet 200 mg PO QHS gabapentin 100 mg capsule 200 mg PO QHS Patient Comments: TAKE 2 CAPSULES BY MOUTH AT BEDTIME sucralfate [Carafate] 1 gram tablet 1 g PO BID Qty: 30 0RF omega 4-mwn-znx-fish oil [Fish Oil] 1,200 (144-216) mg capsule 1 cap PO DAILY Patient Comments: LAST DOSE 01/26 aspirin [Adult Aspirin Regimen] 81 mg tablet,delayed release (DR/EC) 81 mg PO DAILY Patient Comments: LAST DOSE 01/26 diphenoxylate-atropine [Lomotil] 2.5-0.025 mg tablet 1 tab PO TID PRN (Reason: diarrhea) Qty: 90 2RF Primary Care Provider: Velia Archuleta Referrals: Velia Archuleta MD [Primary Care Provider] - Buck Lerner DO [Med Staff - Active Staff] - As soon as possible Disposition Disposition: Home, Self Care
[2023-06-02 13:05] LABS: Absolute Lymphocyte Count 0.47 X10^3/uL (0.83-4.51); Absolute Neutrophil Count 2.5 X10^3/uL (2.0-7.7); Basophil# 0.01 X10^3/uL; Basophil% 0.3 % (0-1); Eosinophil# 0.09 X10^3/uL; Eosinophils% 2.7 % (0-5); Hematocrit 28.7 % (37-47); Hemoglobin 8.7 g/dL (12.0-15.0); Lymphocyte # 0.47 X10^3/ul (0.83-4.51); Lymphocyte % 14.2 % (19-41); Mean Corp Hgb Conc 30.3 g/dL (32-36); Mean Corpuscular Hgb 28.4 pg (27.0-32.0); Mean Corpuscular Volume 93.8 fL (81-99); Mean Platelet Vol. 9.6 fl (6.2-12.0); Monocyte# 0.22 X10^3/uL; Monocyte% 6.6 % (0-10); NRBC Flagged by Analyzer 0 % (0-5); Neutrophil # 2.47 X10^3/uL (2.7-7.7); Neutrophil % 74.4 % (47-70); POSITIVE COUNT YES; POSITIVE DIFFERENTIAL YES; Platelet Count 98 K/mm3 (150-450); RBC Distribution Width CV 17.1 % (11.6-14.6); RBC Distribution Width SD 59.3 fl (35.1-43.9); Red Blood Count 3.06 M/mm3 (4.2-5.4); White Blood Count 3.3 K/mm3 (4.4-11.0)
[2023-06-02 13:08] LABS: ALB/GLOB Ratio 0.7 RATIO (0.9-2.4); AST(SGOT) 20 U/L (15-37); Alanine Aminotransfer ALT/SGPT 28 U/L (13-56); Albumin, Serum 2.3 g/dL (3.2-5.0); Alkaline Phosphatase 111 U/L (45-117); Anion Gap 8 (5-15); BUN 51 mg/dL (7-18); BUN/Creat Ratio 6.9 RATIO (10-20); Calcium,Total 8.6 mg/dL (8.5-10.1); Chloride 98 mmol/L (98-107); Creatinine, Serum 7.39 mg/dL (0.55-1.02); EST Glomerular Filtration Rate 6 mL/min (>60); Est Glom Filt Rate - Afr Amer 7 mL/min (>60); Globulin 3.4 g/dL (2.2-4.2); Glucose 188 mg/dL (74-106); Lipase 23 U/L (13-75); Potassium 4.6 mmol/L (3.5-5.1); Protein, Total 5.7 g/dL (6.4-8.2); Sodium Level 134 mmol/L (136-145)
[2023-06-02 13:09] LABS: Differential Indicated SCAN CRITERIA MET
[2023-06-02 13:19] VITALS: BMI 40.8
[2023-06-02 13:33] LABS: Anisocytosis 1+; Platelet Estimate SLT DEC (ADEQ)
[2023-06-02 14:05] VITALS: BP 134/76; PULSE 76; RESP 16; O2SAT 98
[2023-06-02 16:00] VITALS: BP 115/45; PULSE 73; RESP 16; O2SAT 98
[2023-06-02] MEDS: Dicyclomine 10 MG Capsule 20 MG PO (16:02)
[2023-06-02 16:04] VITALS: BP 115/45; PULSE 73; RESP 12; TEMP 37.1; O2SAT 98
== END 2023-06-02 16:10 | disposition home or self-care (01) ==
PROVIDERS: Emergency Provider Emergency Medicine; PCP Internal Medicine; Visit Provider Emergency Medicine
DX: K52.9 Noninfective gastroenteritis and colitis, unspecified (principal); Z94.4 Liver transplant status; J44.9 Chronic obstructive pulmonary disease, unspecified; Z79.4 Long term (current) use of insulin; E11.9 Type 2 diabetes mellitus without complications; I10 Essential (primary) hypertension; Z90.49 Acquired absence of other specified parts of digestive tract; Z79.82 Long term (current) use of aspirin; Z79.899 Other long term (current) drug therapy
CPT/HCPCS: 74177; 80053; 83690; 85025; 99283; Q9967

== ENCOUNTER → 2023-06-12 | Outpatient (CLI) | payer MEDICARE, MEDICAID, SELFPAY ==
[2023-06-12 11:17] LABS: Absolute Lymphocyte Count 0.49 X10^3/uL (0.83-4.51); Basophil# 0.01 X10^3/uL; Basophil% 0.3 % (0-1); Differential Indicated SCAN CRITERIA MET; Eosinophil# 0.07 X10^3/uL; Eosinophils% 2.4 % (0-5); Hematocrit 30.6 % (37-47); Lymphocyte # 0.49 X10^3/ul (0.83-4.51); Mean Corp Hgb Conc 29.4 g/dL (32-36); Mean Corpuscular Hgb 28.9 pg (27.0-32.0); Mean Corpuscular Volume 98.4 fL (81-99); Mean Platelet Vol. 10.4 fl (6.2-12.0); Monocyte# 0.28 X10^3/uL; Monocyte% 9.7 % (0-10); NRBC Flagged by Analyzer 0 % (0-5); Neutrophil # 1.99 X10^3/uL (2.7-7.7); Neutrophil % 68.9 % (47-70); POSITIVE DIFFERENTIAL YES; POSITIVE MORPHOLOGY YES; Platelet Count 101 K/mm3 (150-450); RBC Distribution Width CV 18.6 % (11.6-14.6); RBC Distribution Width SD 66.2 fl (35.1-43.9); Red Blood Count 3.11 M/mm3 (4.2-5.4); White Blood Count 2.9 K/mm3 (4.4-11.0)
[2023-06-12 11:24] LABS: International Normalized Ratio 1.1; Prothrombin Time (Protime)PT. 14.4 SECONDS (11.7-14.9)
[2023-06-12 11:33] LABS: Hemoglobin A1c 5.6 % (3.8-5.6)
[2023-06-12 11:41] LABS: ALB/GLOB Ratio 0.7 RATIO (0.9-2.4); AST(SGOT) 43 U/L (15-37); Alanine Aminotransfer ALT/SGPT 62 U/L (13-56); Albumin, Serum 2.5 g/dL (3.2-5.0); Alkaline Phosphatase 113 U/L (45-117); Anion Gap 6 (5-15); BUN 8 mg/dL (7-18); BUN/Creat Ratio 3.1 RATIO (10-20); Calcium,Total 7.8 mg/dL (8.5-10.1); Chloride 99 mmol/L (98-107); Cholesterol 98 mg/dL (200); Creatinine, Serum 2.62 mg/dL (0.55-1.02); EST Glomerular Filtration Rate 19 mL/min (>60); Est Glom Filt Rate - Afr Amer 24 mL/min (>60); Globulin 3.6 g/dL (2.2-4.2); Glucose 137 mg/dL (74-106); High Density Lipoprotein 30 mg/dL; Potassium 3.1 mmol/L (3.5-5.1); Protein, Total 6.1 g/dL (6.4-8.2); Sodium Level 137 mmol/L (136-145); Triglycerides 254 mg/dL; Very Low Density Lipoprotein 51 mg/dL (5-40)
[2023-06-12 11:42] LABS: Anisocytosis 1+
[2023-06-14 08:21] LABS: Pathologist Review Reviewed
== END | disposition home or self-care (01) ==
LOC: LAB 10:28
PROVIDERS: PCP Internal Medicine; Referring Provider Internal Medicine; Visit Provider Internal Medicine
DX: R10.10 Upper abdominal pain, unspecified (principal); N18.6 End stage renal disease; Z94.4 Liver transplant status; E11.22 Type 2 diabetes mellitus with diabetic chronic kidney disease; K75.81 Nonalcoholic steatohepatitis (NASH); E66.9 Obesity, unspecified
CPT/HCPCS: 36415; 80053; 80061; 83036; 85025; 85610; 86140

== ENCOUNTER → 2023-06-18 | Outpatient (CLI) | payer MEDICARE, MEDICAID, SELFPAY ==
[2023-06-18 13:24] LABS: Lipase 24 U/L (13-75)
[2023-06-26 14:10] LABS: ACCA 0 units (0-90); ALCA 3 units (0-60); AMCA 3 units (0-100); Cytoplasmic Ab (C-ANCA) <1:20 titer (Neg:<1:20); Endomysial Antibody IgA Negative (Negative); Immunoglobulin A 269 mg/dL (87-352); Immunoglobulin E < 2 IU/mL (6-495); Immunoglobulin G 1425 mg/dL (586-1602); Immunoglobulin M 90 mg/dL (26-217); Perinuclear Ab (P-ANCA) <1:20 titer (Neg:<1:20); gASCA 39 units (0-50); t-Transglutaminase IgA <2 U/mL (0-3)
== END | disposition home or self-care (01) ==
LOC: LAB 08:41
PROVIDERS: PCP Internal Medicine; Referring Provider Internal Medicine; Visit Provider Internal Medicine
DX: K52.9 Noninfective gastroenteritis and colitis, unspecified (principal)
CPT/HCPCS: 36415; 82784; 82785; 83516; 83690; 86036; 86255; 86256; 86671

== ENCOUNTER → 2023-06-19 | Outpatient (CLI) | payer MEDICARE, MEDICAID, SELFPAY ==
[2023-06-26 00:07] LABS: Pancreatic Elastase, Fecal 390 (>200)
[2023-06-29 00:06] LABS: Calprotectin, Stool 112 ug/g (0-120); Fats, Neutral Normal (.); Fats, Total Normal (.)
== END | disposition home or self-care (01) ==
LOC: LABSPEC 11:37
PROVIDERS: PCP Internal Medicine; Referring Provider Internal Medicine; Visit Provider Internal Medicine
DX: K58.9 Irritable bowel syndrome, unspecified (principal); Z94.4 Liver transplant status
CPT/HCPCS: 82274; 82653; 82705; 83630; 83993; 87177; 87209; 87329; 87493; 87506

== ENCOUNTER 2023-07-04 09:53 | Day surgery (SDC) | payer MEDICARE, MEDICAID, SELFPAY ==
--- NOTE | 2023-07-04 | COLBX_PTH ---
PATIENT: CHRISTINA KUO LOC: EN U#:[id number] AGE/SX: 68/F ROOM: RE07/04/[address]: Dr. Buck Lerner DO : 1955 BED: DIS: 07/04/2023 SPEC #: [id number] RECD: 07/04/23 13:38 STATUS: CANELO LAURA #: [id number] JAREK: 07/04/23 00:[address]: Buck Lerner DEPT: SURGICAL PATHOLOGY RECD BY: Thomas Sanderson ENTERED: 07/04/23 13:39 SP TYPE: COLON BX OT DR: Dr. Velia Archuleta MD Tissues: A - Transverse colon B - SPLENIC FLEXURE C - Sigmoid colon biopsy Procedures: Surgery Specimen Level IV HEADER OPERATION: Colonoscopy with biopsy and polypectomy PRE-OP DIAGNOSIS: Abdominal pain TISSUE SUBMITTED: A- Transverse colon polyp, B- Splenic flexure biopsy, C- Sigmoid biopsy MICROSCOPIC DIAGNOSIS A. Transverse colon polyp, biopsy: Fragments of inflammatory polyp with hyperplastic change. B. Colonic polyp at splenic flexure, biopsy: Tubular adenoma. C. Sigmoid colon, biopsy: Fragments of hyperplastic polyp. / 07/05/23 MICROSCOPIC DESCRIPTION Slides are reviewed. GROSS DESCRIPTION A. Received in fixative is one container labeled with the patient's name and designated Transverse colon polyp. The specimen consists of multiple irregular fragments of light mccormack soft tissue that in aggregate measure 1.0 x 0.3 x 0.1 cm. The specimen is totally submitted in one cassette. B. Received in fixative is one container labeled with the patient's name and designated Splenic flexure biopsy. The specimen consists of one irregular fragment of light mccormack soft tissue that measures 0.5 x 0.3 x 0.1 cm. The specimen is totally submitted in one cassette. C. Received in fixative is one container labeled with the patient's name and designated Sigmoid biopsy. The specimen consists of two irregular fragments of light mccormack soft tissue that in aggregate measure 0.7 x 0.5 x 0.1 cm. The specimen is totally submitted in one cassette. / 07/04/23 TC:5 CPT:02609l8
[2023-07-04 10:27] VITALS: BP 150/60; PULSE 74; RESP 16; TEMP 36.2; O2SAT 100; BMI 38.9
[2023-07-04] MEDS: Lactated Ringers 1,000 ML 15 ML IV (10:33)
--- NOTE | 2023-07-04 10:42 | HP.PCM_ITS ---
History and Physical Date of Admission: 07/04/23 Chief Complaint: manometry Details: CHRISTINA KUO, is a 67 F who presents to the office today for follow up. [facility]GI established 04.28.21 during inpatient hospital visit. 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 Pt has been seen previously at [facility] for GI bleeds. Also multiple ER visits for hyperlameia related to her dialysis. GI consulted 04.28 inpatient after presenting to [facility] 04.28.21 -04.29.21 for sudden onset rectal bleeding. Recent coronary artery status post 3 stents [facility]. Patient gets monthly his serum tacrolimus level and followed by retail marketing coordinator [facility] EGD 07.26.21- normal esophagis, two recently bleeding angiodysplasic lesions in duodenum Treated with argon plasma CT abd/pel w/o 04.28.21- Negative unenhanced CT of the abdomen and pelvis for acute abnormality [facility] 10.23.21-10.25.21- Presented to ER for rectal bleeding. Diarrhea with blood. Dx Actue blood anemia secondary to GI bleed, CAD status post stent, DM type 2, ESRD on dialysis, Hyperkalema, MORA cirrhosis status post liver transplant, DVT prophylaxis EGD 10.24.21- normal esophagus, chronic gastritis, normal first portion of duodenum Colon 10.24.21- anal fissure, internal hemorrhoids with prolapse with straining, 3 polyps, multiple bleeding colonic angiodysplastic lesions- treated with monoolar probe [facility] 12.07.21-12.09.21 Presented to [facility] ER with SOB and nausea Dx hyperkalemia-K+ 6.5 on admission, right flank cellulitis, ESRD, acute dyspnea, hypothyroidism [facility] ER 09.08.22 Presented with abdominal pain, contstipation and nausea. Rx promethazine CT abd/pel w/contrast 09.08.22- No acute abnormal finding in the abdomen or pelvis. [facility] ER 09.12.22 Presented with diarrhea for past 7 days, abdominal cramping and pain. [facility] ER 12.26.22 presented with abdominal pain worse over last 2 days, epigastdic region. Given IV fluids, morphine and zofran. CT abd/pel w/contrast 10.25.23- Diffuse atherosclerotic calcification of the aorta and its major visceral branches. Bilateral renal atrophy [facility] ER 10.23- epigastric pain over a week. Not on any PPI. Status post cholecystectomy. Likely has gastritis ir ulcer. Rx Sucralfate OV 11.7.23 Pt reports status post liver transplant in 2008. Is taking Tacrolimus 0.5 mg twice daily. Currently does dialysis MWF. Looking into possible kidney transplant. She does have appointment with license examiner as a work-up for kidney transplant in clinic. Has long history of heartburn and ulcers. Has daily epigastric pain that is getting worse over time. Complain of abdominal pain ma inly mainly in upper abdomen from right to left but predominantly in epigastrium. She states food especially spicy and oily food makes it worse. Is taking Sucralfate and Pantoprazole which is somewhat helpful. Mild nausea and early satiety. EGD 01.30.23- Glucogenic acanthosis, Small hiatal hernia, oozing gastric ulcers with pigmented material, moderate Schatzki ring- Focal mucosal ulceration, Gastroesophageal junctional mucosa with mild chronic inflammation. Neg. goblet cell metaplasia OV 12.12.23- Pt reports still having issues swallowing, Choking on foods and pills and pills come back, right after EGD. Feels worse after the scope. RUQ, epigastric abdominal intermittent pain 3-5/10, sometimes 8/10 associated with nausea. No vomiting. Does have appetite and can't eat more bez of choking. Also still having constipation. Moves every day but has to push or strain. OTC laxatives not helpful. Barium Swallow 02.14.- Injested 12mm tablet of barium trapped at the gastroesophageal junction Esophageal manometry 02.22.23- Hypercontractile esophagus- recommended Baclofen and botox [facility] ER 3.31.24- abdominal pain, constipation Rx Cipro, Flagyl and dicyclomine for colitis CT abd/pel 06.01.24- Spiculated 1.3cm pleural-based Rt lower lobe nodule, Diffuse thickening of the colon with sparing of the transverse colon consistent with colitis OV 4.16.24-enough abdominal pain diffuse but mainly right sided and middle upper part since middle of March 2023 when she was in the [facility]. She has a lot of burping, gaseous feeling, diarrhea, liquid, brownish co anthony but denies fecal matter. She went to ED on 06/[address] scan and was given Cipro and Flagyl for an week for diffuse colitis after discussion with surgeon Dr. Edward Lu. Pt states she was feeling better on the Cipro and Flagyl but once she finished her sx came back. Is having constant abdominal pain, cramping and bloating. No nausea or vomiting. Sometimes she feels she has to go but does not have bowel movement, tenesmus. When she does go stool is very loose. Has not seen blood in the stool. Continues to have swallowing issues. Was started on Baclofen but states she was not given it when she was in the sn[facility]. ROS Const Constitutional: Positive for fatigue and frequent falls ENT ENT: Positive for difficulty swallowing Cardio Cardiology: Positive for leg pain with exertion Gastro GI: Positive for abdominal pain, bloating, change in bowel habits, diarrhea, difficulty swallowing and excessive flatus; No belching, change in stool character, coffee ground emesis, constipation, cramping, heartburn, feeling full early, incontinent of stools, Vomiting blood/hematemesis, Blood in stool, loose stools, Black,tarry stools, nausea/dyspepsia, pain with swallowing, vomiting or other Musc Musculoskeletal: Positive for abnormal gait, back pain, muscle weakness, numbness, stiffness, tingling, restless legs, leg pain at night and leg pain with exertion; No joint pain Skin Skin: Positive for dry skin and itchy eyes; No yellowing of the eye Neuro Neurology: Positive for abnormal gait, frequent falls, numbness, tingling and restless legs Psych Psychiatric: No anxiety and No depression Endo Endocrine: Positive for fatigue Aller/Imm Allergy/Immunologic: Positive for itchy eyes Erik/Lymp Hematologic/Lymphatic: Positive for easy bleeding and easy bruising Exam Const General: cooperative, no acute distress and well developed Nutritional Appearance: obese Orientation: alert, awake and oriented x3 HENMT Head: normocephalic and atraumatic Nose: external nose normal Face and sinus: normal facial exam Mouth: moist mucous membranes Eyes Pupils: PERRL EOM: EOM intact bilaterally Neck Neck: normal visual inspection, no meningeal signs and trachea midline Carotids: no bruits Chest Chest palpation & inspection: normal inspection of the chest Resp Effort & Inspection: normal respiratory effort and symmetric chest movement Auscultation: Bilateral: Clear to Auscultation Cardio Palpation: normal PMI Rate: regular rate Rhythm: regular rhythm Heart Sounds: S1 normal and S2 normal Other: Soft systolic murmur over LUSB GI Auscultation: normal bowel sounds Percussion: normal to percussion Palpation: soft, no hepatosplenomegaly and no guarding Other: Tenderness over right lower, right upper quadrant and epigastric region. Mild tenderness also over left side and left lower quadrant. Bowel sounds sluggish. Liver transplant scar. General: bimanual renal exam normal bilaterally, bladder normal to inspection and bladder normal to palpation Bimanual Exam- Vagina & Uterus: bladder normal to palpation Musc Musculoskeletal: No joint tenderness, joint redness, joint warmth or decreased range of motion Thoracic/Lumbar Spine: thor and lumb spine abnorm to inspection Skin General: rashes and/or lesions noted, turgor normal and no erythema Wounds: wound noted Neuro General: patient alert, patient awake, patient oriented x3 and no focal motor deficits Speech: speech normal Motor: muscle tone normal throughout Extrem General: normal exam except as noted Other: Bilateral lower extremity lymphedema, chronic Psych Appearance: grossly normal Mood: congruent mood Affect: normal affect Attitude: cooperative Quality Reporting Tobacco Screening ([facility]) Smoking Status: Never smoker Assessment and Plan Assessment and Plan (1) Abdominal pain: Status: Chronic Qualifiers: Abdominal location: upper abdomen, unspecified Qualified Code(s): R10.10 - Upper abdominal pain, unspecified Plan: She still has symptoms of diarrhea, tenesmus along with diffuse abdominal pain but mainly seems right-sided colitis on physical exam. CT abdomen individually reviewed and agree with findings diffuse thickening of colon. Patient did not had stool studies therefore stool studies including C. difficile, enteric bacteriology panel, calprotectin, elastase and fecal fat, occult blood and leukocytes ordered. Patient already completed a week of Cipro and Flagyl. Further recommendation regarding antibiotics after ruling out C. difficile. She recently had CBC CMP on 06/12/2023 therefore not ordered. Mild hypokalemia K3.1. Lipase was normal. Discussed with Dr. Lerner for colonoscopy. Last colonoscopy was in 2021, anal fissure, internal hemorrhoids with prolapse with straining, 3 polyps, multiple bleeding colonic angiodysplastic lesions, was treated EGD 01.30.23- Glucogenic acanthosis, Small hiatal hernia, oozing gastric ulcers with pigmented material, moderate Schatzki ring- Focal mucosal ulceration, Gastroesophageal junctional mucosa with mild chronic inflammation. Neg. goblet cell metaplasia Pantoprazole was decreased from 40 mg to once daily as she has been on twice daily dose for about 3-month Lab tests were ordered. Further follow-up decision after review of test but may be in 1 to 2 months after colonoscopy. Abdomen/Pelvis CT 06/02/23 12:36 IMPRESSION: 1. Spiculated 1.3 cm pleural-based right lower lobe nodule for which follow-up noncontrast CT scan of the chest in 3 months or correlation with PET scan is recommended to exclude malignancy. 2. Diffuse thickening of the colon with sparing of the transverse colon consistent with colitis. 3. Hepatic steatosis. 4. Splenomegaly. 5. Left lower quadrant ventral hernia containing fat. 6. Atrophic kidneys. (2) S/P liver transplant: Status: Chronic (3) MORA (nonalcoholic steatohepatitis): Status: Chronic (4) Colitis: Status: Chronic Orders: Orders ENTERIC PATHOGEN PANEL STOOL Today K52.9 - Noninfective gastroenteritis and colitis, unspecified, K58.9 - Irritable bowel syndrome without diarrhea, R10.9 - Unspecified abdominal pain, Z94.4 - Liver transplant status CDIFF (PCR) Today K52.9 - Noninfective gastroenteritis and colitis, unspecified, R10.9 - Unspecified abdominal pain Stool Lactoferrin/WBC Today K52.9 - Noninfective gastroenteritis and colitis, unspecified, K58.9 - Irritable bowel syndrome without diarrhea, R10.9 - Unspecified abdominal pain Pancreatic Elastase, Fecal Today K52.9 - Noninfective gastroenteritis and colitis, unspecified, R10.9 - Unspecified abdominal pain OVA+PARA w/Giardia EIA [id number] Today K52.9 - Noninfective gastroenteritis and colitis, unspecified, R10.9 - Unspecified abdominal pain Calprotectin, Stool Today K52.9 - Noninfective gastroenteritis and colitis, unspecified, R10.9 - Unspecified abdominal pain Fecal Fat, Qualitative Today K52.9 - Noninfective gastroenteritis and colitis, unspecified, R10.9 - Unspecified abdominal pain Stool Occult Blood iFOB Today K52.9 - Noninfective gastroenteritis and colitis, unspecified, R10.9 - Unspecified abdominal pain IBD Expanded Profile Today K52.9 - Noninfective gastroenteritis and colitis, unspecified, R10.9 - Unspecified abdominal pain Lipase Today K52.9 - Noninfective gastroenteritis and colitis, unspecified, R10.9 - Unspecified abdominal pain Immunoglobulins G/A/M/E Today K52.9 - Noninfective gastroenteritis and colitis, unspecified, R10.9 - Unspecified abdominal pain Celiac Disease Profile Today K52.9 - Noninfective gastroenteritis and colitis, unspecified, R10.9 - Unspecified abdominal pain ANCA Today K52.9 - Noninfective gastroenteritis and colitis, unspecified, R10.9 - Unspecified abdominal pain Ferritin 1 Month D64.9 - Anemia, unspecified, E11.9 - Type 2 diabetes mellitus without complications, K52.9 - Noninfective gastroenteritis and colitis, unspecified, K75.81 - Nonalcoholic steatohepatitis (MORA) Iron Binding Capacity,Total 1 Month D64.9 - Anemia, unspecified, E11.9 - Type 2 diabetes mellitus without complications, K52.9 - Noninfective gastroenteritis and colitis, unspecified, K75.81 - Nonalcoholic steatohepatitis (MORA) Iron 1 Month D64.9 - Anemia, unspecified, E11.9 - Type 2 diabetes mellitus without complications, K52.9 - Noninfective gastroenteritis and colitis, unspecified, K75.81 - Nonalcoholic steatohepatitis (MORA) CBC W/Diff, Automated 1 Month E11.9 - Type 2 diabetes mellitus without complications, K52.9 - Noninfective gastroenteritis and colitis, unspecified, K75.81 - Nonalcoholic steatohepatitis (MORA), R10.10 - Upper abdominal pain, unspecified Haptoglobin 1 Month E11.9 - Type 2 diabetes mellitus without complications, K52.9 - Noninfective gastroenteritis and colitis, unspecified, K75.81 - Nonalcoholic steatohepatitis (MORA) LDH 1 Month E11.9 - Type 2 diabetes mellitus without complications, K52.9 - Noninfective gastroenteritis and colitis, unspecified, K75.81 - Nonalcoholic steatohepatitis (MOAR) Retic Panel Count 1 Month E11.9 - Type 2 diabetes mellitus without complications, K52.9 - Noninfective gastroenteritis and colitis, unspecified, K75.81 - Nonalcoholic steatohepatitis (MORA) CRP 1 Month E11.9 - Type 2 diabetes mellitus without complications, K52.9 - Noninfective gastroenteritis and colitis, unspecified, K75.81 - Nonalcoholic steatohepatitis (MORA) Erythrocyte Sed Rate 1 Month E11.9 - Type 2 diabetes mellitus without complications, K52.9 - Noninfective gastroenteritis and colitis, unspecified, K75.81 - Nonalcoholic steatohepatitis (MORA) Prothrombin Time w/INR 1 Month E11.9 - Type 2 diabetes mellitus without complications, K52.9 - Noninfective gastroenteritis and colitis, unspecified, K75.81 - Nonalcoholic steatohepatitis (MORA), R10.10 - Upper abdominal pain, unspecified CMV by PCR Today R10.10 - Upper abdominal pain, unspecified Magnesium Today E87.6 - Hypokalemia, K52.9 - Noninfective gastroenteritis and colitis, unspecified Phosphorus Today E87.6 - Hypokalemia, K52.9 - Noninfective gastroenteritis and colitis, unspecified Medications: New potassium chloride ER 20 mEq PO DAILY 5 days 5 tabs 0RF Changed From pantoprazole 40 mg PO BID 60 tabs 2RF To pantoprazole 40 mg PO DAILY 60 tabs 2RF I have examined the patient and the H&P has been reviewed. There are no clinical changes since date of exam.
[2023-07-04 10:57] LABS: Bedside Glucose 79 mg/dL (74-106)
[2023-07-04 12:00] VITALS: BP 150/60; BP 90/68; PULSE 73; RESP 16; TEMP 36.1; O2SAT 100
--- NOTE | 2023-07-04 12:02 | OP.CCLET_ITS ---
07/04/2023 Velia Archuleta [address] [place] [address] Re : Colonoscopy procedure for Sivan Guerrier Dear Dr. Archuleta This procedure was performed on July. My impressions and recommendations are as follows: Impressions : - Hemorrhoids found on perianal exam. - Diverticulosis in the recto-sigmoid colon and in the sigmoid colon. - One 8 mm polyp in the transverse colon, removed with a hot snare. Resected and retrieved. - Three 1 to 2 mm polyps in the sigmoid colon and in the transverse colon, removed with a jumbo cold forceps. Resected and retrieved. Recommendations : - Repeat colonoscopy in 3 years for surveillance. - Continue present medications. My findings are described in the full procedure note, which is enclosed. If I can be of further assistance, please feel free to contact me at . Sincerely, Buck Lerner, 07/04/2023 12:02:06 PM This report has been signed electronically.
--- NOTE | 2023-07-04 12:02 | OP.COLON_ITS ---
Patient Name: Sivan Guerrier Procedure Date: 07/04/2023 11:17 AM Date of : 1955 Age: 68 Procedure: Colonoscopy Indications: High risk colon cancer surveillance: Personal history of colonic polyps Providers: Buck Lerner DO Medicines: Monitored Anesthesia Care Patient Profile: This is a 68 year old female. Refer to note in patient chart for documentation of history and physical. Last Colonoscopy: 5 years ago. Complications: No immediate complications. Procedure: Pre-Anesthesia Assessment: - Prior to the procedure, a History and Physical was performed, and patient medications and allergies were reviewed. The patient is competent. The risks and benefits of the procedure and the sedation options and risks were discussed with the patient. All questions were answered and informed consent was obtained. Patient identification and proposed procedure were verified by the physician. Mental Status Examination: normal. CV Examination: normal. Prophylactic Antibiotics: The patient does not require prophylactic antibiotics. Prior Anticoagulants: The patient has taken no anticoagulant or antiplatelet agents. ASA Grade Assessment: III - A patient with severe systemic disease. After reviewing the risks and benefits, the patient was deemed in satisfactory condition to undergo the procedure. The anesthesia plan was to use monitored anesthesia care (MAC). Immediately prior to administration of medications, the patient was re-assessed for adequacy to receive sedatives. The heart rate, respiratory rate, oxygen saturations, blood pressure, adequacy of pulmonary ventilation, and response to care were monitored throughout the procedure. The physical status of the patient was re-assessed after the procedure. After I obtained informed consent, the scope was passed under direct vision. Throughout the procedure, the patient's blood pressure, pulse, and oxygen saturations were monitored continuously. The Colonoscope was introduced through the anus and advanced to the cecum, identified by appendiceal orifice and ileocecal valve. The colonoscopy was performed without difficulty. The patient tolerated the procedure well. The quality of the bowel preparation was adequate. The ileocecal valve, appendiceal orifice, and rectum were photographed. Scope In: 11:36:43 AM Scope Withdrawal Time 0 hours 8 minutes 28 seconds Scope Out: 11:55:16 AM Total Procedure Duration Time 0 hours 18 minutes 33 seconds Findings: The perianal and digital rectal examinations were normal. Hemorrhoids were found on perianal exam. Scattered small and large-mouthed diverticula were found in the recto-sigmoid colon and sigmoid colon. An 8 mm polyp was found in the transverse colon. The polyp was sessile. The polyp was removed with a hot snare. Resection and retrieval were complete. Verification of patient identification for the specimen was done. Estimated blood loss was minimal. Three sessile polyps were found in the sigmoid colon and transverse colon. The polyps were 1 to 2 mm in size. These polyps were removed with a jumbo cold forceps. Resection and retrieval were complete. Verification of patient identification for the specimen was done. Estimated blood loss was minimal. Impression: - Hemorrhoids found on perianal exam. - Diverticulosis in the recto-sigmoid colon and in the sigmoid colon. - One 8 mm polyp in the transverse colon, removed with a hot snare. Resected and retrieved. - Three 1 to 2 mm polyps in the sigmoid colon and in the transverse colon, removed with a jumbo cold forceps. Resected and retrieved. Recommendation: - Repeat colonoscopy in 3 years for surveillance. - Continue present medications. Procedure Code(s): --- Professional --- 59840, Colonoscopy, flexible; with removal of tumor(s), polyp(s), or other lesion(s) by snare technique 89486, 59, Colonoscopy, flexible; with biopsy, single or multiple CPT copyright 2021 [employer]. All rights reserved. The codes documented in this report are preliminary and upon heel stiffener review may be revised to meet current compliance requirements. Buck Lerner DO 07/04/2023 12:02:06 PM This report has been signed electronically. Number of Addenda: 0 Note Initiated On: 07/04/2023 11:17 AM
[2023-07-04 12:05] VITALS: BP 100/56; BP 150/60; PULSE 73; RESP 16; O2SAT 100
[2023-07-04 12:10] VITALS: BP 117/52; BP 150/60; PULSE 73; RESP 16; O2SAT 98
[2023-07-04 12:15] VITALS: BP 112/49; BP 150/60; PULSE 72; RESP 16; TEMP 36.1; O2SAT 100
[2023-07-04 12:38] VITALS: BP 150/60
== END 2023-07-04 12:40 | disposition home or self-care (01) ==
LOC: EN 09:54 → AC 09:57
PROVIDERS: PCP Internal Medicine; Referring Provider Internal Medicine; Visit Provider Internal Medicine Gastroenterology
PROC: 0DJD8ZZ Inspection of Lower Intestinal Tract, Via Natural or Artificial Opening Endoscopic (ICD-10-PCS; CPT 45378; principal; 2023-07-04 11:10)
DX: Z12.11 Encounter for screening for malignant neoplasm of colon (principal); N18.6 End stage renal disease; Z94.4 Liver transplant status; J44.9 Chronic obstructive pulmonary disease, unspecified; K51.40 Inflammatory polyps of colon without complications; E66.01 Morbid (severe) obesity due to excess calories; E11.22 Type 2 diabetes mellitus with diabetic chronic kidney disease; Z79.4 Long term (current) use of insulin; K21.9 Gastro-esophageal reflux disease without esophagitis; D12.3 Benign neoplasm of transverse colon; D12.5 Benign neoplasm of sigmoid colon; D63.1 Anemia in chronic kidney disease; K57.30 Diverticulosis of large intestine without perforation or abscess without bleeding; K64.8 Other hemorrhoids; I25.10 Atherosclerotic heart disease of native coronary artery without angina pectoris; K75.81 Nonalcoholic steatohepatitis (NASH); Z95.5 Presence of coronary angioplasty implant and graft; Z99.2 Dependence on renal dialysis; E03.9 Hypothyroidism, unspecified; Z68.38 Body mass index [BMI] 38.0-38.9, adult; Z90.49 Acquired absence of other specified parts of digestive tract; Z79.82 Long term (current) use of aspirin; Z79.899 Other long term (current) drug therapy; Z86.010 Personal history of colon polyps
CPT/HCPCS: 45385; 45380; 82962; 88305; J7120; J2405

== ENCOUNTER 2023-08-15 02:20 | Emergency (ER) | payer MEDICARE, MEDICAID, SELFPAY ==
[2023-08-15] VITALS (7 sets, daily range): BP systolic 126–160; BP diastolic 42–78; PULSE 79–91; RESP 13–18; TEMP 36.6–37.1; O2SAT 69–100; BMI 40.1
--- NOTE | 2023-08-15 05:15 | RAD_ITS ---
INDICATION: pain EXAMINATION/TECHNIQUE: X-RAY - XR Spine Lumbar 2 or 3 Views COMPARISON: No relevant prior comparison study available FINDINGS: VERTEBRAE: Preserved vertebral body height. No fracture. No spondylolisthesis. Preservation of the normal lumbar lordosis. Mild levoscoliosis. Mild facet arthropathy. DISCS: Disc spaces are maintained. INCLUDED ABDOMEN: Included bowel gas pattern is non-obstructive. RAD/Lumbar Spine 2 or 3 Views IMPRESSION: No evidence of lumbar spinal fracture or spondylolisthesis. Mild degenerative changes. Electronically Signed: Amadou Miramontes MD at 6:18 EDT ,
--- NOTE | 2023-08-15 05:15 | CT_ITS ---
INDICATION: injury EXAMINATION: CT CERVICAL SPINE - CT Spine Cervical W/O Contrast Injection TECHNIQUE: Helically acquired images were obtained of the cervical spine. 2D reformatted images were reviewed. A radiation dose optimization technique was used for this scan. IV Contrast dosage and agent: None. RADIATION DOSAGE (If Supplied By Facility): CTDIvol = ( 30.29 ) mGy, DLP = ( 697.88 ) mGycm COMPARISON: Prior study dated: 03/24/2023 FINDINGS: VERTEBRAE: No fracture or traumatic subluxation. No discrete lytic or blastic abnormality. Normal alignment. Normal craniocervical junction and cervicothoracic junction. DISCS and SPINAL CANAL: There is multilevel disc space narrowing with endplate osteophyte formation and facet arthropathy. No critical stenosis. NECK SOFT TISSUES: No prevertebral soft tissue swelling. There is no cervical adenopathy. LUNG APICES: Clear. CT/Spine Cervical without Contras IMPRESSION: No evidence of acute cervical spinal fracture or spondylolisthesis. Mild degenerative changes. Electronically Signed: Amadou Miramontes MD at 6:03 EDT Reading Location ID and State: [address] [place] [address] Tel , Service support ,
--- NOTE | 2023-08-15 05:15 | RAD_ITS ---
INDICATION: pain EXAMINATION/TECHNIQUE: X-RAY - XR Hip Unilateral with Pelvis when performed; 2-3 Views COMPARISON: No relevant prior comparison study available FINDINGS: PELVIC BONES: No displaced fracture, destructive or sclerotic lesions. Note that overlapping bowel shadows may however obscure fine detail. Sacroiliac joints are unremarkable. No widening of the pubic symphysis. HIPS: The hips are aligned with advanced degenerative change bilaterally. There is joint space narrowing with borderline acetabular protrusio. No displaced fracture seen in this frontal view. SOFT TISSUES: No soft tissue swelling or gas. RAD/HIP, UNI W/ Pelvis 2-3 Views IMPRESSION: No evidence of displaced pelvic or hip fracture. Degenerative changes of both hips. Electronically Signed: Amadou Miramontes MD at 6:12 EDT ,
--- NOTE | 2023-08-15 05:15 | RAD_ITS ---
INDICATION: pain EXAMINATION/TECHNIQUE: X-RAY - XR Spine Thoracic 3 Views COMPARISON: No relevant prior comparison study available FINDINGS: VERTEBRAE: Preserved vertebral body height. No fracture. No spondylolisthesis. Preservation of the normal thoracic kyphosis. No significant facet arthropathy. DISCS: Disc spaces are maintained. Small endplate osteophytes throughout. INCLUDED CHEST/ABDOMEN: Hazy right midlung opacity.. RAD/Thoracic Spine 3 Views IMPRESSION: No evidence of thoracic spinal fracture or spondylolisthesis. Mild degenerative change. Electronically Signed: Amadou Miramontes MD at 6:20 EDT ,
--- NOTE | 2023-08-15 05:15 | CT_ITS ---
We are attempting to reach an attending provider to discuss findings. An addendum with communication details will be sent when the communication is complete. INDICATION: head injury EXAMINATION: CT BRAIN - CT Head or Brain W/O Contrast Injection TECHNIQUE: Multiple axial images were obtained of the head without intravenous contrast. A radiation dose optimization technique was used for this scan. IV Contrast dosage and agent: None. RADIATION DOSAGE (If Supplied By Facility): CTDIvol = ( 44.99 ) mGy, DLP = ( 779.24 ) mGycm COMPARISON: Prior study dated: 03/24/2023 FINDINGS: BRAIN PARENCHYMA: Subdural hematoma seen along the left aspect of the posterior falx with a thickness up to 0.5 cm. No evidence of acute infarct. No intracranial mass or mass effect. There is preservation of the kraus/white matter interface. Posterior fossa structures are unremarkable. No parenchymal abnormality. CSF SPACES: No cerebral volume loss. No hydrocephalus. Basal cisterns are patent. CALVARIUM, SKULL BASE, PARANASAL SINUSES AND MASTOID AIR CELLS: The mastoid air cells and visualized paranasal sinuses are well aerated. The calvarium is intact. No discrete lytic or blastic abnormalities. ORBITS: Both globes, extraocular muscles, optic nerves and retrobulbar fat appear unremarkable. CT/Brain/Head without Contrast IMPRESSION: Left posterior parafalcine hematoma. Electronically Signed: Amadou Miramontes MD at 5:58 EDT ,
[2023-08-15] MEDS: Morphine 4 MG/ML Syringe 6 MG IM (05:30)
[2023-08-15] MEDS: Ondansetron ODT 4 MG Tablet PO (05:30)
--- NOTE | 2023-08-15 05:57 | EKG12_ITS ---
Test Reason : FALL Blood Pressure : / mmHG Vent. Rate : 088 BPM Atrial Rate : 088 BPM P-R Int : 228 ms QRS Dur : 112 ms QT Int : 382 ms P-R-T Axes : 051 -57 049 degrees QTc Int : 462 ms Sinus rhythm with 1st degree A-V block Left axis deviation Minimal voltage criteria for LVH, may be normal variant ( [place] product ) Anteroseptal infarct , age undetermined Abnormal ECG Confirmed by CHRISTAL FOFANA, ARMANDO ([id number]), pictures editor KATIE GREENE ([id number]) on 08/19/2023 11:41:21 AM Referred By: JOAN Confirmed By:ARMANDO SIEGEL MD
--- NOTE | 2023-08-15 06:28 | RAD_ITS ---
EXAM: XR CHEST, 1 VIEW CLINICAL INDICATION: fall fall TECHNIQUE: Frontal view of the chest. COMPARISON: Chest x-ray 04/16/2023. FINDINGS: LUNGS AND PLEURAL SPACES: There is mild interstitial prominence in the mid and lower lung gagnon, right greater than left. Areas of interstitial prominence or also present on previous study. This may represent an inflammatory process or atypical infectious process. Mild CHF would also be a possibility. There is no demonstrated focal pulmonary consolidation. No pneumothorax. No effusion. HEART: Unremarkable. Cardiac silhouette not enlarged. MEDIASTINUM: Central airways and mediastinal contour are unremarkable. BONES/JOINTS: Unremarkable. No acute fracture. SOFT TISSUES: Unremarkable. RAD/Chest 1 View (Portable) IMPRESSION: Mild interstitial prominence in the mid and lower lung gagnon bilaterally, right greater than left. This may represent an infectious or inflammatory process or may represent mild CHF. No demonstrated focal pulmonary consolidation. Electronically Signed: Gaurav Gutierrez MD at 8:01 EDT ,
[2023-08-15 06:33] LABS: Absolute Lymphocyte Count 0.53 X10^3/uL (0.83-4.51); Absolute Neutrophil Count 4.6 X10^3/uL (2.0-7.7); Basophil# 0.01 X10^3/uL; Basophil% 0.2 % (0-1); Eosinophil# 0.07 X10^3/uL; Eosinophils% 1.3 % (0-5); Hematocrit 30.5 % (37-47); Hemoglobin 9.2 g/dL (12.0-15.0); Lymphocyte # 0.53 X10^3/ul (0.83-4.51); Lymphocyte % 9.6 % (19-41); Mean Corp Hgb Conc 30.2 g/dL (32-36); Mean Corpuscular Hgb 29.9 pg (27.0-32.0); Mean Platelet Vol. 10.3 fl (6.2-12.0); Monocyte# 0.27 X10^3/uL; Monocyte% 4.9 % (0-10); NRBC Flagged by Analyzer 0 % (0-5); Neutrophil % 83.1 % (47-70); POSITIVE DIFFERENTIAL YES; POSITIVE MORPHOLOGY YES; Platelet Count 101 K/mm3 (150-450); RBC Distribution Width CV 19.9 % (11.6-14.6); RBC Distribution Width SD 71.1 fl (35.1-43.9); Red Blood Count 3.08 M/mm3 (4.2-5.4); White Blood Count 5.5 K/mm3 (4.4-11.0)
[2023-08-15 06:34] LABS: Anion Gap 10 (5-15); BUN 49 mg/dL (7-18); BUN/Creat Ratio 7.1 RATIO (10-20); Calcium,Total 9.1 mg/dL (8.5-10.1); Chloride 97 mmol/L (98-107); Creatinine, Serum 6.87 mg/dL (0.55-1.02); EST Glomerular Filtration Rate 6 mL/min (>60); Est Glom Filt Rate - Afr Amer 8 mL/min (>60); Estimated Creatinine Clearance 9.92 ml/min; Glucose 184 mg/dL (74-106); Potassium 5.2 mmol/L (3.5-5.1); Sodium Level 136 mmol/L (136-145)
[2023-08-15 06:40] LABS: International Normalized Ratio 1.1; Prothrombin Time (Protime)PT. 14.6 SECONDS (11.7-14.9)
[2023-08-15 06:41] LABS: Partial Thromboplast Time 31.2 Seconds (24.1-36.2)
[2023-08-15 06:42] LABS: Phosphorus 5.2 mg/dL (2.5-4.9)
--- NOTE | 2023-08-15 06:56 | EX.ED.DYSGE1 ---
HPI History of Present Illness Chief Complaint: Fall Informant: patient Narrative Narrative: Patient is a 68-year-old female with past medical history of chronic renal failure on dialysis type 2 diabetes as well as previous history of liver transplant. Patient states that she got up around 2 or 3 in the morning to use the restroom and as she was walking to the bathroom her legs felt weak and they gave out and she fell and struck the back of her head. She states that the fall from a standing position onto carpet and she denies any bleeding disorder or blood thinner use. She states there is no LOC. She reports she was able to get up and try to walk again and had another bout of weakness causing her to fall. She reports pain in her head and neck as well as low back and right hip and with concern for trauma was brought in for evaluation [facility] Medical History (Updated 08/15/23 @ 07:[address] Chapincito Doughrety, ) Easy bruising Restless legs Difficulty swallowing Dietary restriction History of ulceration Shortness of breath on exertion CPAP (continuous positive airway pressure) dependence Influenza A Sepsis Acute dyspnea Pneumonia Anxiety Depression Hypothyroidism Irregular heart beat Hypertension DVT (deep venous thrombosis) Multiple falls Uses wheelchair History of renal dialysis Osteoporosis Cirrhosis Non-smoker ESRD (end stage renal disease) Pancytopenia Chronic renal failure, stage 5 Infection involving suture with abscess Wears glasses Wears dentures Cancer Insulin dependent diabetes mellitus Anemia Hx of Krueger's palsy Back pain Gastric reflux COPD (chronic obstructive pulmonary disease) History of edema History of echocardiogram (~01/22/20) History of stress test (~12/07/19) Cardiology follow-up encounter [facility] History of uterine cancer Hypertension Anemia in chronic kidney disease Home Medications ?Medication ?Instructions ?Recorded ?Last Taken ?Type ascorbic acid (vitamin C) 500 mg 1,000 mg PO DAILY supplement 02/20/15 07/03/23 History chewable tablet cholecalciferol (vitamin D3) 25 1,000 unit PO BID supplement 02/20/15 07/03/23 History mcg (1,000 unit) tablet tacrolimus 1 mg capsule, 0.5 mg PO BID REJECTION 09/10/19 07/04/23 History immediate-release (Prograf) vitamin B complex 1 tablet PO DAILY SUPPLEMENT 09/10/19 07/03/23 History ropinirole 1 mg tablet 1 mg PO DAILY restless legs 05/23/20 07/04/23 History ropinirole 2 mg tablet,extended 2 mg PO QHS restless legs 06/10/20 07/03/23 History release 24 hr sevelamer carbonate 800 mg tablet 1,600 mg PO TIDCM kidney disease 06/10/20 07/03/23 History (Renvela) nitroglycerin 0.4 mg sublingual 0.4 mg sublingual Q5M PRN 04/29/21 Unknown Rx tablet Cardiac/Chest Pain #30 tabs biotin 1 mg capsule 1 mg PO BID supplement 08/11/21 07/03/23 History sertraline 50 mg tablet (Zoloft) 50 mg PO DAILY mood 08/11/21 07/04/23 History albuterol sulfate 90 mcg/actuation 2 puff IH Q4H PRN PRN Sob &/Or 10/25/21 Unknown Rx aerosol inhaler Wheezing 30 days #8.6 grams diphenoxylate-atropine 2.5 1 tab PO TID PRN diarrhea #90 tabs 10/27/21 12/30/22 Rx mg-0.025 mg tablet (Lomotil) apremilast 30 mg tablet (Otezla) 30 mg PO DAILY 09/08/22 07/03/23 History gabapentin 100 mg capsule 200 mg PO QHS 12/31/22 07/03/23 History levothyroxine 88 mcg tablet 88 mcg PO DAILY 12/31/22 07/04/23 History sucralfate 1 gram tablet (Carafate) 1 g PO BID #30 tabs 12/31/22 Unknown Rx trazodone 100 mg tablet 200 mg PO QHS 12/31/22 07/03/23 History aspirin 81 mg tablet,delayed 81 mg PO DAILY 01/28/23 06/30/23 History release (Adult Aspirin Regimen) omega 4-rir-lko-fish oil 1,200 mg 1 cap PO DAILY SUPPLEMENT 01/28/23 06/30/23 History (144 mg-216 mg) capsule (Fish Oil) bisacodyl 10 mg rectal suppository 10 mg DE DAILY PRN constipation 02/12/23 07/03/23 Rx (Dulcolax (bisacodyl)) #30 ea acetaminophen 325 mg capsule 650 mg PO Q4H PRN fever or pain 04/15/23 Unknown History acetaminophen 650 mg rectal 650 mg DE Q4H PRN fever or pain 04/15/23 Unknown History suppository aluminum-magnesium hydroxide 225 30 ml PO Q4H PRN PRN GI distress 04/15/23 Unknown History mg-200 mg/5 mL oral suspension dextrose 40 % oral gel (Gluco 15 g PO Q15M PRN hypoglycemia 04/15/23 Unknown History Burst) insulin lispro 100 unit/mL 8 unit subcut TIDCM 04/15/23 07/03/23 08:00 History subcutaneous pen (Humalog KwikPen 8 units (U-100) Insulin) melatonin 10 mg tablet 10 mg PO QHS 04/15/23 07/03/23 History midodrine 10 mg tablet 10 mg PO MOWEFR 04/15/23 Unknown History torsemide 60 mg tablet 60 mg PO DAILY 04/15/23 07/03/23 History hydrocodone-acetaminophen 5-325mg 1 tab PO Q6H PRN PRN Pain Score 04/19/23 Unknown Rx 5mg-325mg 6-10 2 days #6 tabs dicyclomine 10 mg capsule 20 mg (2 x 10 mg) PO Q6H PRN PRN 06/02/23 Unknown Rx abdominal discomfort #30 CAPSULES carvedilol 12.5 mg tablet 6.25 mg PO BID 07/01/23 07/04/23 History doxycycline hyclate 100 mg capsule 100 mg PO BID 07/01/23 07/03/23 History insulin glargine-yfgn 100 unit/mL 18 unit subcut BID 07/01/23 07/03/23 History (3 mL) subcutaneous pen 9 unit nystatin 100,000 unit/gram topical 1 applic topical BID PRN PRN SKIN 07/01/23 Unknown History powder ([facility]) pantoprazole 40 mg tablet,delayed 40 mg PO BID 07/01/23 07/04/23 History release Allergy/AdvReac Type Severity Reaction Status Date / Time amlodipine (From Norvasc) Allergy Severe Hives Verified 07/04/23 10:19 ampicillin sodium (From Allergy Severe Hives Verified 07/04/23 10:19 Unasyn) buspirone HCl (From BuSpar) Allergy Severe Hives Verified 07/04/23 10:19 cefadroxil (From Duricef) Allergy Severe Hives Verified 07/04/23 10:19 lisinopril Allergy Severe Swelling Verified 07/04/23 10:19 naproxen Allergy Severe Hives Verified 07/04/23 10:19 niacin (From Niaspan Allergy Severe Hives Verified 07/04/23 10:19 Extended-Release) sulbactam sodium (From Allergy Severe Hives Verified 07/04/23 10:19 Unasyn) Sulfa (Sulfonamide Allergy Severe Hives Verified 07/04/23 10:19 Antibiotics) cephalexin (From Keflex) Allergy Vomiting Verified 07/04/23 10:19 omeprazole AdvReac Severe Other Verified 07/04/23 10:19 losartan AdvReac Swelling Verified 07/04/23 10:19 Family History Mother Diabetes Anemia Father Hypertension LUNG/RESPIRATORY DISEASE Surgical History (Updated 08/15/23 @ 07:[address] hCapincito Dougherty DO) History of esophagogastroduodenoscopy (EGD) History of coronary artery stent placement History of cardiac catheterization History of appendectomy S/P arteriovenous (AV) fistula creation (~06/16/20) History of cholecystectomy History of left salpingo-oophorectomy History of radical hysterectomy History of left knee surgery History of ventral hernia repair History of liver transplant Social History housing: apartment current occupational status: disabled Smoking Status: Never smoker substance use type: does not use ROS ROS ED Constitutional Constitutional ED: Denies chills or fever(s) Eyes Eyes: Denies change in vision or diplopia ENT ENT ED: Denies sore throat Cardiovascular Cardiovascular: Denies chest pain Respiratory/Chest Respiratory/Chest: Denies cough or dyspnea Gastrointestinal Gastrointestinal: Denies abdominal pain, diarrhea, nausea or vomiting Genitourinary Genitourinary ED: Denies dysuria Musculoskeletal Musculoskeletal: Reports back pain, neck pain and other Details: Positive right hip pain Integumentary Reports other Details: Positive laceration to scalp Neurologic Neurologic: Reports headache(s) and weakness Hematologic/Lymphatic Hematologic/Lymphatic: Reports easy bleeding and easy bruising EXAM Physical Exam Const Vital Signs: 08/15/23 02:21 08/15/23 02:21 08/15/23 04:34 Temperature 98.7 F Temperature Source Temporal Pulse Rate 84 86 Respiratory Rate 16 18 Respiratory Effort Short of Breath Respiratory Depth Normal Respiratory Pattern Normal Blood Pressure 126/42 H 134/57 H Blood Pressure Mean 70 82 Pulse Ox 98 98 Oxygen Delivery Method Room Air Room Air Room Air 08/15/23 06:00 08/15/23 06:21 Temperature Temperature Source Pulse Rate 91 89 Respiratory Rate 15 13 Respiratory Effort Respiratory Depth Respiratory Pattern Blood Pressure 160/78 H 150/61 H Blood Pressure Mean 105 90 Pulse Ox 98 98 Oxygen Delivery Method Room Air Room Air Positive well nourished, well developed and obese General Appearance ED: well developed Nutritional Appearance: obese HEENT HEENT Narrative: Patient has a 2 x 2 centimeter hematoma to the midline occipital portion of the scalp. In the center of this is roughly a 1 cm linear subcutaneous layer deep laceration with minimal ooze of blood Otherwise no signs of depressed or basilar skull fracture Eyes PERRL and EOMs intact bilaterally Neck supple Neck Narrative: No bony deformity or step-off of the cervical spine however there is midline tenderness to palpation Chest Wall palpation of chest normal Chest Narrative: No bony deformity or crepitance of the chest wall noted Resp normal respiratory effort and clear to auscultation bilaterally Cardio regular rate and regular rhythm GI normal to inspection, nondistended, normoactive bowel sounds, non-tender, non-distended and no masses GI Narrative: No voluntary guarding or rigidity or pulsatile mass Auscultation: normoactive bowel sounds Palpation: soft Back/Spine Back/Spine Narrative: No bony deformity or step-off of the thoracic or lumbar spine but there is pain on palpation along the midline of the upper thoracic and lower lumbar region Extremity Extremity Narrative: Pelvis is stable there is no shortening or external rotation of either lower extremity Patient does have pain on palpation along the right greater trochanter. No obvious bony deformity or joint effusion Compartments are soft and compressible going against compartment syndrome Fistula in place in the left upper arm with palpable thrill and good bruit consistent with history of dialysis Neuro oriented x3, CN's II-XII intact bilaterally and no sensory deficits noted Sensorium / Orientation: alert Motor Exam: strength 5/5 throughout Psych mental status grossly normal Skin Skin Narrative: Hematoma with laceration to the occipital portion of the scalp as documented above MDM MDM MDM Narrative Medical decision making narrative: Patient arrived to the ER with stable vitals. She reported that her legs simply felt weak and gave out causing her to fall but denied syncope or LOC. She did have signs of trauma to the occipital portion of her scalp and with concern for skull fracture versus subdural or epidural hematoma a CT scan of the head was obtained. As patient also has midline neck tenderness there is concern for potential compression fracture or spinal thesis so a CT of the cervical spine was obtained and x-rays of the thoracic and lumbar spine ordered as well. The patient reported right hip pain after the fall and she does not have findings to suggest acute fracture but in order to rule this out a 1 view pelvis with right hip x-ray was ordered. Imaging studies revealed a small midline subdural hematoma consistent with her report of fall and hematoma. Otherwise there is no signs of trauma. At this time the patient is awake and alert with normal neurologic exam. She is protecting her airway and there is no need for intubation. GCS is 15. However as we do not have neurosurgery available at our institution and there is concern that as time progresses her bleed will worsen and she may require surgical intervention [facility] was contacted. They do agree to accept the patient. At this time as the patient has stable vitals and is not requiring intubation and is awake and alert with normal neurologic exam we will transfer by mobile ICU ground as I do not feel there is need for [facility]. The patient did have her posterior scalp laceration cleaned with hydrogen peroxide and then the wound was closed with Dermabond. The wound edges were held together well with the Dermabond and patient tolerated procedure well without complication. History & Record Review Discussion w/independent historian: Patient Lab Data Attestation: I reviewed the patient's lab results. Labs: Laboratory Results - last 24 hr 08/15/23 06:12 PT 14.6 INR 1.1 APTT 31.2 Sodium 136 Potassium 5.2 H Chloride 97 L Carbon Dioxide 29.0 Anion Gap 10 BUN 49 H Creatinine 6.87 H Estim Creat Clear Calc 9.92 Est GFR (MDRD) Af Amer 8 L Est GFR (MDRD) Non-Af 6 L BUN/Creatinine Ratio 7.1 L Glucose 184 H Calcium 9.1 Phosphorus 5.2 H Radiography Diagnostic Testing: Clinical Impression(s) from Imaging Studies Brain CT 08/15/23 05:15 IMPRESSION: Left posterior parafalcine hematoma. Electronically Signed: Amadou Miramontes MD at 5:58 EDT , ADDENDUM: 08/15/23 0615 IMPRESSION: Left posterior parafalcine hematoma. N.B. : The above Results were Read Back by Amadou Miramontes MD to Chapincito Dougherty DO, and understanding confirmed on 08/15/2023 06:09:03 (ET). Electronically Signed: Amadou Miramontes MD at 5:58 EDT , Cervical Spine CT 08/15/23 05:15 IMPRESSION: No evidence of acute cervical spinal fracture or spondylolisthesis. Mild degenerative changes. Electronically Signed: Amadou Miramontes MD at 6:03 EDT , Hip/Pelvis X-Ray 08/15/23 05:15 IMPRESSION: No evidence of displaced pelvic or hip fracture. Degenerative changes of both hips. Electronically Signed: Amadou Miramontes MD at 6:12 EDT , Lumbar Spine X-Ray 08/15/23 05:15 IMPRESSION: No evidence of lumbar spinal fracture or spondylolisthesis. Mild degenerative changes. Electronically Signed: Amadou Miramontes MD at 6:18 EDT , Thoracic Spine X-Ray 08/15/23 05:15 IMPRESSION: No evidence of thoracic spinal fracture or spondylolisthesis. Mild degenerative change. Electronically Signed: Amadou Miramontes MD at 6:20 EDT , X-ray of the right hip with 1 view pelvis as interpreted by the emergency medicine physician reveals no acute fracture or dislocation X-ray of the thoracic and lumbar spine as interpreted by the emergency medicine physician reveals degenerative changes without acute compression fracture or spondylolisthesis Chest x-ray as interpreted by the emergency medicine physician reveals no acute rib fracture pneumothorax hemothorax or pneumonia Management Discussion w/another healthcare provider: [employer] Manager Critical Care Time Critical Care Time: Yes Critical care time (excluding procedures): Discussing w/Patient &/or Family/Seed [place], Discussing w/Consultants, Arranging Admission or Transfer and - (Critical care time of 33 minutes) Discharge Plan Triage Chief Complaint: Fall ED Provider: Chapincito Dougherty Dx/Rx/DC Orders Clinical Impression: Acute subdural hematoma, Type 2 diabetes mellitus, History of liver transplant, End stage renal disease on dialysis, Laceration of scalp Prescriptions: No Action bisacodyl [Dulcolax (bisacodyl)] 10 mg suppository 10 mg DE DAILY PRN (Reason: constipation) Qty: 30 0RF ascorbic acid (vitamin C) 500 MG tablet,chewable 1,000 mg PO DAILY Patient Comments: supplement cholecalciferol (vitamin D3) 1,000 UNIT tablet 1,000 unit PO BID Patient Comments: bone health ropinirole 1 mg tablet 1 mg PO DAILY tacrolimus [Prograf] 1 MG capsule 0.5 mg PO BID vitamin B complex 1 EACH tablet 1 tablet PO DAILY sevelamer carbonate [Renvela] 800 MG tablet 1,600 mg PO TIDCM ropinirole 2 MG tablet extended release 24 hr 2 mg PO QHS nitroglycerin 0.4 mg Tablet, Sublingual 0.4 mg sublingual Q5M PRN (Reason: Cardiac/Chest Pain) Qty: 30 0RF sertraline [Zoloft] 50 MG tablet 50 mg PO DAILY Patient Comments: depression biotin 1 mg Capsule 1 mg PO BID albuterol sulfate 1 PUFF inhaler 2 puff IH Q4H PRN PRN (Reason: Sob &/Or Wheezing) 30 Days Qty: 8.6 0RF Otezla 30 mg tablet 30 mg PO DAILY acetaminophen 650 mg suppository 650 mg DE Q4H PRN (Reason: fever or pain) acetaminophen 325 mg capsule 650 mg PO Q4H PRN (Reason: fever or pain) aluminum-magnesium hydroxide 225-200 mg/5 mL suspension 30 ml PO Q4H PRN PRN (Reason: GI distress) melatonin 10 mg tablet 10 mg PO QHS midodrine 10 mg tablet 10 mg PO MOWEFR Patient Comments: ON HOLD FOR LAST 2-3 WEEKS Rx Instructions: afternoon torsemide 60 mg tablet 60 mg PO DAILY insulin lispro [Humalog KwikPen Insulin] 100 unit/mL insulin pen 8 unit subcut TIDCM dextrose [Gluco Burst] 40 % gel 15 g PO Q15M PRN (Reason: hypoglycemia) Patient Comments: tablet form Rx Instructions: until symptoms of low blood sugar are controlled hydrocodone-acetaminophen 5-325 mg Tablet 1 tab PO Q6H PRN PRN (Reason: Pain Score 6-10) 2 Days Qty: 6 0RF levothyroxine 88 mcg tablet 88 mcg PO DAILY trazodone 100 mg tablet 200 mg PO QHS gabapentin 100 mg capsule 200 mg PO QHS Patient Comments: TAKE 2 CAPSULES BY MOUTH AT BEDTIME sucralfate [Carafate] 1 gram tablet 1 g PO BID Qty: 30 0RF omega 9-ekx-zgr-fish oil [Fish Oil] 1,200 (144-216) mg capsule 1 cap PO DAILY aspirin [Adult Aspirin Regimen] 81 mg tablet,delayed release (DR/EC) 81 mg PO DAILY carvedilol 12.5 mg tablet 6.25 mg PO BID doxycycline hyclate 100 mg capsule 100 mg PO BID pantoprazole 40 mg tablet,delayed release (DR/EC) 40 mg PO BID nystatin [Nyamyc] 100,000 unit/gram Powder 1 applic topical BID PRN PRN (Reason: SKIN) Protocol: *Topical Application Instructions APPLICATION INSTRUCTIONS: apply to abdominal folds insulin glargine-yfgn 100 unit/mL (3 mL) Insulin Pen 18 unit subcut BID dicyclomine 10 mg capsule 20 mg PO Q6H PRN PRN (Reason: abdominal discomfort) Qty: 30 0RF diphenoxylate-atropine [Lomotil] 2.5-0.025 mg tablet 1 tab PO TID PRN (Reason: diarrhea) Qty: 90 2RF Primary Care Provider: Velia Archuleta Referrals: Velia Archuleta MD [Primary Care Provider] - Print Language: Venezuelan Disposition Disposition: Acute Care Hospital Discharge Location: [facility]
[2023-08-15 07:05] LABS: Differential Indicated SCAN CRITERIA MET
--- NOTE | 2023-08-15 07:24 | ED.RN ---
Report given to Scotty PICKETT, questions/concerns asnwered
--- NOTE | 2023-08-15 07:36 | ED.RN ---
BEDSIDE REPORT GIVEN TO [facility]. NO FURTHER QUESTIONS. PT CARE TRANSFERRED
[2023-08-15 07:40] LABS: Anisocytosis 2+; Differential Comment SCANNED
== END 2023-08-15 07:37 | disposition short-term general hospital (02) ==
PROVIDERS: Emergency Provider Emergency Medicine; PCP Internal Medicine; Visit Provider Emergency Medicine
DX: S06.5XAA Traumatic subdural hemorrhage with loss of consciousness status unknown, initial encounter (principal); N18.6 End stage renal disease; I12.0 Hypertensive chronic kidney disease with stage 5 chronic kidney disease or end stage renal disease; Z94.4 Liver transplant status; J44.9 Chronic obstructive pulmonary disease, unspecified; E11.22 Type 2 diabetes mellitus with diabetic chronic kidney disease; S01.01XA Laceration without foreign body of scalp, initial encounter; E66.9 Obesity, unspecified; Z99.2 Dependence on renal dialysis; W19.XXXA Unspecified fall, initial encounter; Z86.718 Personal history of other venous thrombosis and embolism; Z95.5 Presence of coronary angioplasty implant and graft
CPT/HCPCS: 12001; 70450; 71045; 72072; 72100; 72125; 73502; 80048; 84100; 85025; 85610; 85730; 93005; 96372; 99284; 99285; A4216

== ENCOUNTER 2023-08-21 09:19 | Emergency (ER) | payer MEDICARE, MEDICAID, SELFPAY ==
[2023-08-21] VITALS (10 sets, daily range): BP systolic 86–176; BP diastolic 34–89; PULSE 74–88; RESP 16–20; TEMP 36.4–36.8; O2SAT 92–99; BMI 38.8
--- NOTE | 2023-08-21 10:02 | EDS_ITS ---
HPI History of Present Illness Chief Complaint: Other, Pain/Inj Detail of Chief Complaint: Complaining of pain. Recent fall with intracranial bleed and coccyx fx. Informant: patient Onset/Context/Timing Onset: Days Context: Gradual Onset Timing: Continuous Current Severity: Moderate Maximum Severity: Moderate Narrative Narrative: 68-year-old female history of end-stage renal disease dialysis, diabetes recent fall about a week ago and had traumatic brain injury with small bleed and sacral fracture. She was initially seen and treated here transferred to [facility]. Currently on [place] for pain. She is supposed to get dialysis Saturday she has been unable to complete a full run of dialysis since the fall due to her tailbone pain. Today was sent from dialysis here due to pain. She has follow-up coming up with a [facility] physician. Prior similar symptoms: Yes Recent Illness/Hospitalization: Yes [facility] Medical History Easy bruising Restless legs Difficulty swallowing Dietary restriction History of ulceration Shortness of breath on exertion CPAP (continuous positive airway pressure) dependence Influenza A Sepsis Acute dyspnea Pneumonia Anxiety Depression Hypothyroidism Irregular heart beat Hypertension DVT (deep venous thrombosis) Multiple falls Uses wheelchair History of renal dialysis Osteoporosis Cirrhosis Non-smoker ESRD (end stage renal disease) Pancytopenia Chronic renal failure, stage 5 Infection involving suture with abscess Wears glasses Wears dentures Cancer Insulin dependent diabetes mellitus Anemia Hx of Krueger's palsy Back pain Gastric reflux COPD (chronic obstructive pulmonary disease) History of edema History of echocardiogram (~01/22/20) History of stress test (~12/07/19) Cardiology follow-up encounter [facility] History of uterine cancer Hypertension Anemia in chronic kidney disease Home Medications ?Medication ?Instructions ?Recorded ?Last Taken ?Type ascorbic acid (vitamin C) 500 mg 1,000 mg PO DAILY supplement 02/20/15 07/03/23 History chewable tablet cholecalciferol (vitamin D3) 25 1,000 unit PO BID supplement 02/20/15 07/03/23 History mcg (1,000 unit) tablet tacrolimus 1 mg capsule, 0.5 mg PO BID REJECTION 09/10/19 07/04/23 History immediate-release (Prograf) vitamin B complex 1 tablet PO DAILY SUPPLEMENT 09/10/19 07/03/23 History ropinirole 1 mg tablet 1 mg PO DAILY restless legs 05/23/20 07/04/23 History ropinirole 2 mg tablet,extended 2 mg PO QHS restless legs 06/10/20 07/03/23 History release 24 hr sevelamer carbonate 800 mg tablet 1,600 mg PO TIDCM kidney disease 06/10/20 07/03/23 History (Renvela) nitroglycerin 0.4 mg sublingual 0.4 mg sublingual Q5M PRN 04/29/21 Unknown Rx tablet Cardiac/Chest Pain #30 tabs biotin 1 mg capsule 1 mg PO BID supplement 08/11/21 07/03/23 History sertraline 50 mg tablet (Zoloft) 50 mg PO DAILY mood 08/11/21 07/04/23 History albuterol sulfate 90 mcg/actuation 2 puff IH Q4H PRN PRN Sob &/Or 10/25/21 Unknown Rx aerosol inhaler Wheezing 30 days #8.6 grams diphenoxylate-atropine 2.5 1 tab PO TID PRN diarrhea #90 tabs 10/27/21 12/30/22 Rx mg-0.025 mg tablet (Lomotil) apremilast 30 mg tablet (Otezla) 30 mg PO DAILY 09/08/22 07/03/23 History gabapentin 100 mg capsule 200 mg PO QHS 12/31/22 07/03/23 History levothyroxine 88 mcg tablet 88 mcg PO DAILY 12/31/22 07/04/23 History sucralfate 1 gram tablet (Carafate) 1 g PO BID #30 tabs 12/31/22 Unknown Rx trazodone 100 mg tablet 200 mg PO QHS 12/31/22 07/03/23 History aspirin 81 mg tablet,delayed 81 mg PO DAILY 01/28/23 06/30/23 History release (Adult Aspirin Regimen) omega [id number]-fish oil 1,200 mg 1 cap PO DAILY SUPPLEMENT 01/28/23 06/30/23 History (144 mg-216 mg) capsule (Fish Oil) bisacodyl 10 mg rectal suppository 10 mg MO DAILY PRN constipation 02/12/23 07/03/23 Rx (Dulcolax (bisacodyl)) #30 ea acetaminophen 325 mg capsule 650 mg PO Q4H PRN fever or pain 04/15/23 Unknown History acetaminophen 650 mg rectal 650 mg MO Q4H PRN fever or pain 04/15/23 Unknown History suppository aluminum-magnesium hydroxide 225 30 ml PO Q4H PRN PRN GI distress 04/15/23 Unknown History mg-200 mg/5 mL oral suspension dextrose 40 % oral gel (Gluco 15 g PO Q15M PRN hypoglycemia 04/15/23 Unknown History Burst) insulin lispro 100 unit/mL 8 unit subcut TIDCM 04/15/23 07/03/23 08:00 History subcutaneous pen (Humalog KwikPen 8 units (U-100) Insulin) melatonin 10 mg tablet 10 mg PO QHS 04/15/23 07/03/23 History midodrine 10 mg tablet 10 mg PO MOWEFR 04/15/23 Unknown History torsemide 60 mg tablet 60 mg PO DAILY 04/15/23 07/03/23 History hydrocodone-acetaminophen 5-325mg 1 tab PO Q6H PRN PRN Pain Score 04/19/23 Unknown Rx 5mg-325mg 6-10 2 days #6 tabs dicyclomine 10 mg capsule 20 mg (2 x 10 mg) PO Q6H PRN PRN 06/02/23 Unknown Rx abdominal discomfort #30 CAPSULES carvedilol 12.5 mg tablet 6.25 mg PO BID 07/01/23 07/04/23 History doxycycline hyclate 100 mg capsule 100 mg PO BID 07/01/23 07/03/23 History insulin glargine-yfgn 100 unit/mL 18 unit subcut BID 07/01/23 07/03/23 History (3 mL) subcutaneous pen 9 unit nystatin 100,000 unit/gram topical 1 applic topical BID PRN PRN SKIN 07/01/23 Unknown History powder ([facility]) pantoprazole 40 mg tablet,delayed 40 mg PO BID 07/01/23 07/04/23 History release Allergy/AdvReac Type Severity Reaction Status Date / Time amlodipine (From Norvas) Allergy Severe Hives Verified 08/21/23 09:24 ampicillin sodium (From Allergy Severe Hives Verified 08/21/23 09:24 Unasyn) [facility] Allergy Severe Hives Verified 08/21/23 09:24 cefadroxil (From [facility]) Allergy Severe Hives Verified 08/21/23 09:24 lisinopril Allergy Severe Swelling Verified 08/21/23 09:24 naproxen Allergy Severe Hives Verified 08/21/23 09:24 niacin (From Niaspan Allergy Severe Hives Verified 08/21/23 09:24 Extended-Release) sulbactam sodium (From Allergy Severe Hives Verified 08/21/23 09:24 Unasyn) Sulfa (Sulfonamide Allergy Severe Hives Verified 08/21/23 09:24 Antibiotics) cephalexin (From Keflex) Allergy Vomiting Verified 08/21/23 09:24 omeprazole AdvReac Severe Other Verified 08/21/23 09:24 losartan AdvReac Swelling Verified 08/21/23 09:24 Family History Mother Diabetes Anemia Father Hypertension LUNG/RESPIRATORY DISEASE Surgical History History of esophagogastroduodenoscopy (EGD) History of coronary artery stent placement History of cardiac catheterization History of appendectomy S/P arteriovenous (AV) fistula creation (~06/16/20) History of cholecystectomy History of left salpingo-oophorectomy History of radical hysterectomy History of left knee surgery History of ventral hernia repair History of liver transplant Social History housing: apartment current occupational status: disabled Smoking Status: Never smoker substance use type: does not use ROS ROS ED ROS Narrative Nausea due to pain. Review of Systems ROS Unobtainable: Denies due to encephalopathy Constitutional Constitutional ED: Denies chills or fever(s) Eyes Eyes: Denies blurry vision ENT ENT ED: Denies ear pain Cardiovascular Cardiovascular: Denies chest pain Respiratory/Chest Respiratory/Chest: Denies cough or dyspnea Gastrointestinal Gastrointestinal: Denies abdominal pain Genitourinary Genitourinary ED: Denies dysuria or hematuria Musculoskeletal Musculoskeletal: Denies arthralgias Integumentary Denies abscess Neurologic Neurologic: Denies headache(s) Psychiatric Psychiatric: Denies anxiety Endocrine Endocrinology: Denies cold intolerance Hematologic/Lymphatic Hematologic/Lymphatic: Reports none Allergic/Immunologic Allergic/Immunologic ED: Denies mouth swelling, tongue swelling or urticaria EXAM Physical Exam Narrative Exam Narrative: Six 8-year-old female vital signs are stable afebrile. Lying on her left side and says it hurts to lie on her buttock due to her tailbone fracture. H EENT exam pupils round react to light. No facial trauma. She has an old scab in her right posterior scalp from her recent fall a week ago. Neck nontender. Trachea midline. Lungs clear to auscultation bilaterally. Heart regular rhythm no murmur rate about 85. Chest wall and ribs are nontender. Back she is over thoracic spine and thoracic region she has bruising from the prior fall. She has pain to palpation over her lower tailbone. Pelvic girdle is intact. She has normal roving marker strength. Normal dorsi plantarflexion. No shortening or rotation. Neurologically she is awake and alert with no focal motor deficits. Answering questions following commands. Const Vital Signs: 08/21/23 09:21 08/21/23 11:27 08/21/23 13:08 Temperature 97.6 F L Temperature Source Temporal Pulse Rate 85 86 Respiratory Rate 18 16 Blood Pressure 149/63 H 133/66 H 143/34 H Blood Pressure Mean 91 88 70 Pulse Ox 98 98 Oxygen Delivery Method Room Air 08/21/23 14:11 08/21/23 14:14 Temperature Temperature Source Pulse Rate 74 80 Respiratory Rate 16 20 H Blood Pressure 114/89 H 86/72 L Blood Pressure Mean 97 76 Pulse Ox 99 98 Oxygen Delivery Method Positive well nourished and well developed; Negative for cachectic, contractures or unkempt General Appearance ED: well developed; Negative for unkempt, cachectic, contractures, cyanotic, diaphoretic or pallor Nutritional Appearance: Negative for cachectic HEENT Reports moist mucous membranes HEENT Narrative: Scab on her right posterior scalp from a prior fall. Negative for trauma or tenderness Eyes PERRL and EOMs intact bilaterally General Eye ED: Negative for pale conjunctiva or scleral icterus Neck no lymphadenopathy, supple and no JVD General: Negative for tenderness Chest Wall inspection of chest normal and palpation of chest normal Chest: Negative for other Resp normal respiratory effort and clear to auscultation bilaterally Effort and Inspection: Negative for retractions or pain with movement Auscultation: Negative for rales, rhonchi or wheezes Cardio regular rate, regular rhythm, S1 normal heart sound, S2 normal heart sound and no murmurs Palpation: Negative for palpable S3 Rate: Negative for bradycardia Rhythm: Negative for abnormal rhythm GI normal to inspection, nondistended, normoactive bowel sounds, non-tender, non- distended and no masses Inspection: Negative for abdominal distention Auscultation: normoactive bowel sounds Palpation: soft; Negative for tender or guarding Back/Spine no CVA tenderness General Back: Negative for CVA tenderness Cervical Spine: Negative for cervical spine tenderness Thoracic Spine / Upper Back: Negative for thoracic spinal tenderness Lumbar Spine / Lower Back: Negative for lumbar spinal tenderness Extremity normal to inspection General Extremety ED: Negative for edema or tenderness General Extremity: Negative for edema Neuro oriented x3 and CN's II-XII intact bilaterally Sensorium / Orientation: alert; Negative for orientation impaired, lethargic or stuporous Motor Exam: strength 5/5 throughout Psych Negative for mental status grossly normal Appearance: Negative for unkempt Attitude: No agitated Mood & Affect: tearful; Negative for depressed or anxious Skin no rashes or lesions noted and no wounds Skin Narrative: Bruising on her back. General Skin Exam: Negative for jaundice or pallor Lesions: No lesion noted Rashes: No rashes noted Trauma: Negative for abrasion MDM MDM MDM Narrative Medical decision making narrative: 68-year-old female fell a week ago had a traumatic brain injury and coccyx fracture. Just complaining of pain to the point where she cannot get her dialysis. She has not had a full run of dialysis for a week. On the check her blood count and electrolytes. She will get morphine and Zofran for pain and nausea. Patient's x-ray shows a right subcapital hip fracture. It was not seen on initial evaluation 3 days ago. Patient thinks that [facility] told her she had a hip fracture but is not sure why they did not repair it when she was up there with her intercranial bleed. I spoke to my orthopedic physician on-call here. Given the patient's chronic illness and recent head bleed he did not feel comfortable nor did he think anesthesia would feel comfortable doing the case here. And he wanted me to transfer her back to [facility]. I have them on page. Patient will be given additional morphine for pain. I have discussed with her test results and x-ray results. [facility] has accept the patient for transfer were awaiting a bed. She will be turned over to the afternoon physician. History & Record Review Discussion w/independent historian: Patient Additional record(s) reviewed:: Prior inpatient record, Prior outpatient record, Prior ED visit and Prior labs Lab Data Attestation: I reviewed the patient's lab results. Lab results narrative: CBC shows a white count 2.5. H&H 9.1 and 29.5. Platelet count is low at 86,000. Chemistries show potassium of 3.4. Gap 9. BUN of 18 creatinine 3.54. History of dialysis. Glucose 169. Labs: Laboratory Results - last 24 hr 08/21/23 10:03 WBC 2.5 L RBC 3.07 L Hgb 9.1 L Hct 29.5 L MCV 96.1 MCH 29.6 MCHC 30.8 L RDW Std Deviation 65.1 H RDW Coeff of Tami 18.4 H Plt Count 86 L MPV 10.6 Immature Gran % (Auto) 1.600 H Neut % (Auto) 69.2 Lymph % (Auto) 15.0 L Faulk % (Auto) 11.4 H Eos % (Auto) 2.4 Baso % (Auto) 0.4 Absolute Neuts (auto) 1.7 L Absolute Lymphs (auto) 0.37 L Nucleated RBC % 0 Diff Path Review May foll Platelet Estimate ADEQUATE Anisocytosis 1+ Sodium 139 Potassium 3.4 L Chloride 98 Carbon Dioxide 32.0 Anion Gap 9 BUN 18 Creatinine 3.54 H Estim Creat Clear Calc 18.89 Est GFR (MDRD) Af Amer 17 L Est GFR (MDRD) Non-Af 14 L BUN/Creatinine Ratio 5.1 L Glucose 169 H Calcium 8.6 Radiography Diagnostic Testing: Clinical Impression(s) from Imaging Studies Hip/Pelvis X-Ray 08/21/23 10:20 IMPRESSION: I suspect a nondisplaced impacted right subcapital fracture. Marked degree of joint space narrowing of both hip joints. Electronically Signed: Naren Boston MD at 10:39 EDT , Right hip x-ray shows a nondisplaced right subcapital femur fracture. 3 views interpreted both by myself and radiologist. Discharge Plan Dx/Rx/DC Orders Clinical Impression: Fall, Chronic anemia, Closed right hip fracture, Chronic kidney disease with end stage renal failure on dialysis, History of intracranial hemorrhage Disposition Disposition: Acute Care Hospital [facility]
[2023-08-21] MEDS: Morphine 4 MG/ML Syringe 6 MG IV (10:11)
[2023-08-21] MEDS: Ondansetron 4 MG/2 ML Vial IV ×2 (10:11→15:48)
--- NOTE | 2023-08-21 10:20 | RAD_ITS ---
STUDY: X-RAY - PELVIS AND RIGHT HIP REASON FOR EXAM: Female, 68 years old. right hip pain post fall 1 wk ago TECHNIQUE: 3 views of the pelvis and hip. COMPARISON: Comparison is made with prior study dated August 15, 2023. FINDINGS: There is a non-specific bowel gas pattern. Surgical clips are seen in the pelvis. Normal bilateral iliac wings, sacroiliac joints and visualized sacrum. Normal bilateral superior and inferior pubic rami. Normal pubic symphysis. Normal bilateral ischial tuberosities. I suspect a nondisplaced impacted right subcapital fracture. Normal acetabulum. There is severe articular joint space narrowing of the hip. Marked degree of joint space narrowing of the left hip joint. RAD/HIP, UNI W/ Pelvis 2-3 Views IMPRESSION: I suspect a nondisplaced impacted right subcapital fracture. Marked degree of joint space narrowing of both hip joints. Electronically Signed: Naren Boston MD at 10:39 EDT ,
[2023-08-21 10:33] LABS: Absolute Lymphocyte Count 0.37 X10^3/uL (0.83-4.51); Absolute Neutrophil Count 1.7 X10^3/uL (2.0-7.7); Basophil# 0.01 X10^3/uL; Basophil% 0.4 % (0-1); Eosinophil# 0.06 X10^3/uL; Eosinophils% 2.4 % (0-5); Hematocrit 29.5 % (37-47); Hemoglobin 9.1 g/dL (12.0-15.0); Lymphocyte # 0.37 X10^3/ul (0.83-4.51); Mean Corp Hgb Conc 30.8 g/dL (32-36); Mean Corpuscular Hgb 29.6 pg (27.0-32.0); Mean Corpuscular Volume 96.1 fL (81-99); Mean Platelet Vol. 10.6 fl (6.2-12.0); Monocyte# 0.28 X10^3/uL; Monocyte% 11.4 % (0-10); NRBC Flagged by Analyzer 0 % (0-5); Neutrophil % 69.2 % (47-70); POSITIVE COUNT YES; POSITIVE DIFFERENTIAL YES; POSITIVE MORPHOLOGY YES; Platelet Count 86 K/mm3 (150-450); RBC Distribution Width CV 18.4 % (11.6-14.6); RBC Distribution Width SD 65.1 fl (35.1-43.9); Red Blood Count 3.07 M/mm3 (4.2-5.4); White Blood Count 2.5 K/mm3 (4.4-11.0)
[2023-08-21 10:42] LABS: Anion Gap 9 (5-15); BUN 18 mg/dL (7-18); BUN/Creat Ratio 5.1 RATIO (10-20); Calcium,Total 8.6 mg/dL (8.5-10.1); Chloride 98 mmol/L (98-107); Creatinine, Serum 3.54 mg/dL (0.55-1.02); EST Glomerular Filtration Rate 14 mL/min (>60); Est Glom Filt Rate - Afr Amer 17 mL/min (>60); Estimated Creatinine Clearance 18.89 ml/min; Glucose 169 mg/dL (74-106); Potassium 3.4 mmol/L (3.5-5.1); Sodium Level 139 mmol/L (136-145)
[2023-08-21 11:23] LABS: Differential Indicated SCAN CRITERIA MET
[2023-08-21 11:29] LABS: Anisocytosis 1+
[2023-08-21 11:41] LABS: Platelet Estimate ADEQUATE (ADEQ)
[2023-08-21] MEDS: morphine 8 MG/ML Syringe 6 MG IV ×2 (12:00→14:12)
--- NOTE | 2023-08-21 14:12 | NURSING ---
CALLED [facility] FOR TRANSFER
--- NOTE | 2023-08-21 15:24 | NURSING ---
ACCEPTED BY DR MAKI WAITING FOR A BED
[2023-08-21] MEDS: fentaNYL 100 MCG/2 ML Ampul 25 MCG IV (15:49)
[2023-08-21 16:28] LABS: Mucous, Urine 0 SEEN /hpf (<or=2+); Red Blood Cells-Urine 0 SEEN /hpf (0-5); Squamous Epithelial Cells - UA 0 SEEN /hpf (5-10)
--- NOTE | 2023-08-21 16:58 | ED.RN ---
PT REQUESTING A SUPPOSITORY. PT STATES SHE HAS NOT HAD A BOWEL MOVEMENT IN AWHILE. DR. WILKES NOTIFIED. PT ALSO NOTIFIED THAT HAS BEEN NOTIFIED OF PATIENTS REQUESTS
[2023-08-21 17:10] LABS: Color, Urine Yellow (Yellow); Glucose, Dipstick Normal (Normal); Ketone-Dipstick Negative (Negative); Leukocyte Esterase-Dipstick 500 /ul (Negative); Nitrite-Dipstick Negative (Negative); Occult Blood-Urine 150 /ul (Negative); Protein-Dipstick 100 mg/dl (Negative); Urine Bilirubin Dipstick Negative (Negative); Urine Clarity Turbid (Clear); Urine Urobilinogen Normal (Normal)
[2023-08-21 17:21] LABS: Bacteria 4+ /hpf (None Seen); White Blood Cells >100 SEEN /hpf (0-5)
--- NOTE | 2023-08-21 17:45 | NURSING ---
CALLED [facility], NO BED YET
[2023-08-21] MEDS: fentaNYL 100 MCG/2 ML Ampul 50 MCG IV ×2 (17:49→21:57)
[2023-08-21] MEDS: levoFLOXacin IV 750 MG in Empty Viaflex Q24 100 MG IV (19:59)
--- NOTE | 2023-08-21 21:35 | ED.RN ---
Report called to Luis Fernando Fenton, given report to Steve PICKETT
[2023-08-22] VITALS: BP 142/42; PULSE 88; RESP 20; O2SAT 94
[2023-08-22 00:21] LABS: Bedside Glucose 80 mg/dL (74-106)
[2023-08-22] MEDS: Dextrose 10%-Water 250 ML IV.SOLN. IV (01:03)
[2023-08-22 15:33] LABS: Pathologist Review Reviewed
== END 2023-08-22 01:04 | disposition short-term general hospital (02) ==
PROVIDERS: Emergency Medicine; Emergency Provider Emergency Medicine; PCP Internal Medicine; Visit Provider Emergency Medicine
DX: S72.001A Fracture of unspecified part of neck of right femur, initial encounter for closed fracture (principal); I12.0 Hypertensive chronic kidney disease with stage 5 chronic kidney disease or end stage renal disease; N18.6 End stage renal disease; J44.9 Chronic obstructive pulmonary disease, unspecified; E11.22 Type 2 diabetes mellitus with diabetic chronic kidney disease; Z99.2 Dependence on renal dialysis; D64.9 Anemia, unspecified; E66.9 Obesity, unspecified; Z86.718 Personal history of other venous thrombosis and embolism; Z95.5 Presence of coronary angioplasty implant and graft; W19.XXXA Unspecified fall, initial encounter
CPT/HCPCS: 51702; 73502; 80048; 81001; 82962; 85025; 87086; 87088; 87186; 96365; 96366; 96375; 96376; 99285; J7050; A4216; J2405

== ENCOUNTER → 2023-09-10 | Outpatient (CLI) | payer MEDICARE, MEDICAID, SELFPAY ==
[2023-09-10 12:54] LABS: Erythrocyte Sedimentation Rate 7 mm/hr (0-30)
[2023-09-10 12:58] LABS: Absolute Neutrophil Count 1.9 X10^3/uL (2.0-7.7); Basophil# 0.01 X10^3/uL; Basophil% 0.3 % (0-1); Eosinophil# 0.09 X10^3/uL; Eosinophils% 3.1 % (0-5); Hematocrit 29.8 % (37-47); Hemoglobin 9.5 g/dL (12.0-15.0); Immature Platelet Fraction 5.1 % (1.0-7.9); Lymphocyte % 20.8 % (19-41); Mean Corp Hgb Conc 31.9 g/dL (32-36); Mean Corpuscular Hgb 31.5 pg (27.0-32.0); Mean Corpuscular Volume 98.7 fL (81-99); Mean Platelet Vol. 10.9 fl (6.2-12.0); Monocyte# 0.31 X10^3/uL; Monocyte% 10.7 % (0-10); NRBC Flagged by Analyzer 0 % (0-5); Neutrophil # 1.86 X10^3/uL (2.7-7.7); Neutrophil % 64.4 % (47-70); POSITIVE COUNT YES; POSITIVE DIFFERENTIAL YES; POSITIVE MORPHOLOGY YES; Platelet Count 90 K/mm3 (150-450); RBC Distribution Width CV 18.6 % (11.6-14.6); RBC Distribution Width SD 66.7 fl (35.1-43.9); RET-HE 31.8 pg (30-35); Red Blood Count 3.02 M/mm3 (4.2-5.4); Reticulocyte Count 3.83 % (0.5-1.5); White Blood Count 2.9 K/mm3 (4.4-11.0)
[2023-09-10 12:59] LABS: Differential Indicated SCAN CRITERIA MET
[2023-09-10 13:20] LABS: International Normalized Ratio 1.2; Prothrombin Time (Protime)PT. 15.4 SECONDS (11.7-14.9)
[2023-09-10 13:45] LABS: Ferritin 1225 ng/mL (8-252); Iron 61 ug/dL (50-170); Iron Binding Capacity,Total 160 ug/dL (250-450); LDH 169 U/L (84-246); Magnesium 2.3 mg/dL (1.6-2.6)
[2023-09-10 15:00] LABS: Differential Comment SCANNED; Platelet Estimate MOD DEC (ADEQ)
[2023-09-10 15:01] LABS: Anisocytosis 2+
[2023-09-10 15:02] LABS: Ovalocyte 2+; Tear Drop Cell 1+
[2023-09-16 01:06] LABS: CMV by PCR Negative (Negative); Haptoglobin 82 mg/dL (37-355)
== END | disposition home or self-care (01) ==
LOC: LAB 12:18
PROVIDERS: PCP Internal Medicine; Referring Provider Internal Medicine; Visit Provider Internal Medicine
DX: E87.6 Hypokalemia (principal); E11.9 Type 2 diabetes mellitus without complications; K52.9 Noninfective gastroenteritis and colitis, unspecified; R10.10 Upper abdominal pain, unspecified; K75.81 Nonalcoholic steatohepatitis (NASH); D64.9 Anemia, unspecified
CPT/HCPCS: 36415; 82728; 83010; 83540; 83550; 83615; 83735; 84100; 85025; 85045; 85610; 85652; 86140; 87496

== ENCOUNTER 2023-09-17 16:34 | Observation (INO) | payer MEDICARE, MEDICAID, SELFPAY ==
[2023-09-17] VITALS (9 sets, daily range): BP systolic 111–152; BP diastolic 50–69; PULSE 81–86; RESP 16–20; TEMP 36.6–36.9; O2SAT 92–99; BMI 39.2; BMI 38.1
--- NOTE | 2023-09-17 17:45 | RAD_ITS ---
INDICATION: FALL EXAMINATION/TECHNIQUE: X-RAY - RIGHT XR Ankle Min 3 Views 3 VIEWS COMPARISON: Prior study dated: 03/24/2023 FINDINGS: SOFT TISSUES: There is significant soft tissue swelling both medially and laterally. No soft tissue gas. No radiopaque foreign body. BONES/JOINTS: There is diffuse osteopenia. Callus formation consistent with healed or healing fracture involving the distal fibula which is developed in the interval. No acute fracture planes identified. There is moderate osteophyte formation at the talonavicular and calcaneocuboid articulation. RAD/Ankle min 3 Views IMPRESSION: 1. Significant soft tissue swelling both medially and laterally. No soft tissue gas. No radiopaque foreign body. 2. Healed or healing distal fibular fracture with callus formation however fracture plane is not visible. 3. Diffuse osteopenia. 4. No acute fracture or dislocation noted. Electronically Signed: Virgilio Garcia MD at 18:21 EDT ,
--- NOTE | 2023-09-17 17:45 | RAD_ITS ---
INDICATION: FALL EXAMINATION/TECHNIQUE: X-RAY - RIGHT XR Foot Min 3 Views 3 VIEWS COMPARISON: 08/17/2018 FINDINGS: SOFT TISSUES: Significant soft tissue swelling the dorsum of the forefoot. No soft tissue gas. No radiopaque foreign body. BONES/JOINTS: No acute fracture or subluxation.. There is normal alignment. Osteophyte formation is present in the midfoot. Preservation of the joint space.. No sclerotic or destructive changes observed. Plantar spur is present. RAD/Foot min 3 Views IMPRESSION: 1. No evidence of fracture dislocation or acute bony changes. 2. Osteophyte formation and midfoot. Small plantar spur. 3. Dorsal soft tissue swelling in the forefoot. Electronically Signed: Virgilio Garcia MD at 18:24 EDT ,
--- NOTE | 2023-09-17 17:45 | RAD_ITS ---
INDICATION: FALL EXAMINATION/TECHNIQUE: X-RAY - RIGHT XR Shoulder Min 2 Views COMPARISON: No previous relevant examinations for comparison. FINDINGS: SOFT TISSUES: No soft tissue swelling or gas. No radiopaque foreign body. BONES/JOINTS: 1. No acute fracture or subluxation.. Normal alignment. Preservation of the joint space.. No sclerotic bony changes are noted. 2. There is an area of diminished density in the lateral aspect of the humeral head which appears unchanged from chest radiograph of 04/15/2023.. 3. There is normal glenohumeral motion. There is normal alignment of the acromioclavicular joint, however osteophyte formation is present.. 4. The clavicle, acromion, scapula and RIGHT rib cage have normal appearance. RAD/Shoulder min 2 Views IMPRESSION: 1. No fracture or dislocation involving the glenohumeral joint. 2. AC joint degenerative changes are present. Electronically Signed: Virgilio Garcia MD at 18:28 EDT ,
--- NOTE | 2023-09-17 17:45 | RAD_ITS ---
INDICATION: FALL EXAMINATION/TECHNIQUE: X-RAY - RIGHT XR Elbow Min 3 Views COMPARISON: : No relevant prior comparison study available FINDINGS: SOFT TISSUES: No soft tissue swelling or gas. No radiopaque foreign body. BONES/JOINTS: There is no displacement of the anterior or posterior fat pads. No acute fracture or subluxation. Normal alignment. Preservation of the joint space. No sclerotic or destructive changes observed. RAD/Elbow min 3 Views IMPRESSION: 1. No evidence fracture, malalignment or focal bony or joint space abnormality. Electronically Signed: Virgilio Garcia MD at 18:25 EDT ,
--- NOTE | 2023-09-17 20:39 | CT_ITS ---
INDICATION: neck trauma EXAMINATION: CT CERVICAL SPINE - CT Spine Cervical W/O Contrast Injection TECHNIQUE: Helically acquired images were obtained of the cervical spine. 2D reformatted images were reviewed. A radiation dose optimization technique was used for this scan. Noncontrast images obtained. IV Contrast dosage and agent: None. Radiation Dose (provided by facility) CTDIvol (23.93 ) mGy, DLP ( 467.66) mGy-cm COMPARISON: : No relevant prior comparison study available FINDINGS: VERTEBRAE: No fracture or traumatic subluxation. No discrete lytic or blastic abnormality. There is straightening of cervical lordosis. Normal craniocervical junction and cervicothoracic junction. Normal appearance of the odontoid process. DISCS and SPINAL CANAL: Disc space narrowing endplate sclerosis and marginal osteophyte formation most notable at C5-6 and C6-7. Minimal posterior osteophyte and disc bulge at C3-4. No acute disc herniations or canal stenosis. Neural foramina appear widely patent. No critical stenosis. NECK SOFT TISSUES: No prevertebral soft tissue swelling. There is no cervical adenopathy. Carotid vascular calcifications on the LEFT. LUNG APICES: Clear. CT/Spine Cervical without Contras IMPRESSION: 1. No evidence of acute cervical spinal fracture or spondylolisthesis. No acutely acquired canal stenosis. 2. Cervical spondylosis with disc changes at C5-6 and C6-7. No acute disc herniation, no foraminal stenosis. Electronically Signed: Virgilio Garcia MD at 21:28 EDT ,
--- NOTE | 2023-09-17 20:39 | CT_ITS ---
INDICATION: head trauma EXAMINATION: CT BRAIN - CT Head or Brain W/O Contrast Injection TECHNIQUE: Multiple axial images were obtained of the head without intravenous contrast. A radiation dose optimization technique was used for this scan. IV Contrast dosage and agent: None. RADIATION DOSAGE (If Supplied By Facility): CTDIvol = ( 44.99 ) mGy, DLP = ( 798.92 ) mGycm COMPARISON: 08/15/2023 FINDINGS: HEMISPHERES: 1. The cerebral parenchyma, ventricular system, subarachnoid spaces have normal configuration and density. There is a normal gyral pattern. There is normal kraus/white differentiation. No midline shift.. 2. The hemispheric white matter has normal appearance. 3. No intraparenchymal mass, hemorrhage, or acute territorial infarct. CEREBELLUM - BRAINSTEM: The cerebellum, brainstem, basilar and suprasellar cisterns have normal appearance. No Chiari malformation. PITUITARY: Infundibulum and pituitary have normal configuration. Midline structures appear normal. CSF SPACES: Appropriate for age. No hydrocephalus. Basal cisterns are patent. VESSELS: 1. Moderate to extensive vascular calcifications in the cavernous carotid vessels. 2. No hyperdense vascular signs noted.. ORBITS AND PARANASAL SINUSES: 1. Normal appearance of the bony orbits. Normal appearance of the globes and retrobulbar soft tissues.. 2. Paranasal sinuses are clear. BONY ELEMENTS: Bony elements of the cranial vault, facial skeleton and skull base have normal appearance. SCALP AND SOFT TISSUES: Normal appearance of the soft tissues of the scalp and the visualized face OTHER: None ASPECTS Score for Acute Strokes: 10 CT/Brain/Head without Contrast IMPRESSION: 1. Normal CT examination of the brain. 2. No intracranial evidence of acute traumatic injury. 3. No intracranial mass, hemorrhage or acute territorial infarct. 4. No fractures noted. 5. No radiographically significant sinus disease.. Electronically Signed: Virgilio Garcia MD at 21:26 EDT ,
[2023-09-17] MEDS: HYDROcodone Bitartrate/Apap 5/325 Tablet PO (20:57)
--- NOTE | 2023-09-17 21:11 | ED.VIS.FALL ---
HPI HPI - Fall History of Present Illness Chief Complaint: Fall Narrative Narrative: 68-year-old female presenting after a fall that happened last night. She fell hitting her right ankle, right knee, right shoulder. She states she also hurt her neck and hit her head. No LOC. No blood thinners. Patient does feel more tired today. She states she took a Fouke before coming to the emergency room. [facility] Medical History Easy bruising Restless legs Difficulty swallowing Dietary restriction History of ulceration Shortness of breath on exertion CPAP (continuous positive airway pressure) dependence Influenza A Sepsis Acute dyspnea Pneumonia Anxiety Depression Hypothyroidism Irregular heart beat Hypertension DVT (deep venous thrombosis) Multiple falls Uses wheelchair History of renal dialysis Osteoporosis Cirrhosis Non-smoker ESRD (end stage renal disease) Pancytopenia Chronic renal failure, stage 5 Infection involving suture with abscess Wears glasses Wears dentures Cancer Insulin dependent diabetes mellitus Anemia Hx of Krueger's palsy Back pain Gastric reflux COPD (chronic obstructive pulmonary disease) History of edema History of echocardiogram (~01/22/20) History of stress test (~12/07/19) Cardiology follow-up encounter [employer] History of uterine cancer Hypertension Anemia in chronic kidney disease Home Medications ?Medication ?Instructions ?Recorded ?Last Taken ?Type ascorbic acid (vitamin C) 500 mg 1,000 mg PO DAILY supplement 02/20/15 07/03/23 History chewable tablet cholecalciferol (vitamin D3) 25 1,000 unit PO BID supplement 02/20/15 07/03/23 History mcg (1,000 unit) tablet tacrolimus 1 mg capsule, 0.5 mg PO BID REJECTION 09/10/19 07/04/23 History immediate-release (Prograf) vitamin B complex 1 tablet PO DAILY SUPPLEMENT 09/10/19 07/03/23 History ropinirole 1 mg tablet 1 mg PO DAILY restless legs 05/23/20 07/04/23 History ropinirole 2 mg tablet,extended 2 mg PO QHS restless legs 06/10/20 07/03/23 History release 24 hr sevelamer carbonate 800 mg tablet 1,600 mg PO TIDCM kidney disease 06/10/20 07/03/23 History (Renvela) nitroglycerin 0.4 mg sublingual 0.4 mg sublingual Q5M PRN 04/29/21 Unknown Rx tablet Cardiac/Chest Pain #30 tabs biotin 1 mg capsule 1 mg PO BID supplement 08/11/21 07/03/23 History sertraline 50 mg tablet (Zoloft) 50 mg PO DAILY mood 08/11/21 07/04/23 History albuterol sulfate 90 mcg/actuation 2 puff IH Q4H PRN PRN Sob &/Or 10/25/21 Unknown Rx aerosol inhaler Wheezing 30 days #8.6 grams apremilast 30 mg tablet (Otezla) 30 mg PO DAILY 09/08/22 07/03/23 History gabapentin 100 mg capsule 200 mg PO QHS 12/31/22 07/03/23 History levothyroxine 88 mcg tablet 88 mcg PO DAILY 12/31/22 07/04/23 History sucralfate 1 gram tablet (Carafate) 1 g PO BID #30 tabs 12/31/22 Unknown Rx trazodone 100 mg tablet 200 mg PO QHS 12/31/22 07/03/23 History aspirin 81 mg tablet,delayed 81 mg PO DAILY 01/28/23 06/30/23 History release (Adult Aspirin Regimen) omega 5-mpt-eib-fish oil 1,200 mg 1 cap PO DAILY SUPPLEMENT 01/28/23 06/30/23 History (144 mg-216 mg) capsule (Fish Oil) bisacodyl 10 mg rectal suppository 10 mg VA DAILY PRN constipation 02/12/23 07/03/23 Rx (Dulcolax (bisacodyl)) #30 ea acetaminophen 325 mg capsule 650 mg PO Q4H PRN fever or pain 04/15/23 Unknown History aluminum-magnesium hydroxide 225 30 ml PO Q4H PRN PRN GI distress 04/15/23 Unknown History mg-200 mg/5 mL oral suspension dextrose 40 % oral gel (Gluco 15 g PO Q15M PRN hypoglycemia 04/15/23 Unknown History Burst) insulin lispro 100 unit/mL 10 unit subcut TIDCM 04/15/23 07/03/23 08:00 History subcutaneous pen (Humalog KwikPen 8 units (U-100) Insulin) melatonin 10 mg tablet 10 mg PO QHS 04/15/23 07/03/23 History midodrine 10 mg tablet 10 mg PO MOWEFR PRN hypotension 04/15/23 Unknown History torsemide 60 mg tablet 60 mg PO DAILY 04/15/23 07/03/23 History hydrocodone-acetaminophen 5-325mg 1 tab PO Q6H PRN PRN Pain Score 04/19/23 Unknown Rx 5mg-325mg 6-10 2 days #6 tabs dicyclomine 10 mg capsule 20 mg (2 x 10 mg) PO Q6H PRN PRN 06/02/23 Unknown Rx abdominal discomfort #30 CAPSULES carvedilol 12.5 mg tablet 6.25 mg PO BID 07/01/23 07/04/23 History doxycycline hyclate 100 mg capsule 100 mg PO BID 07/01/23 07/03/23 History insulin glargine-yfgn 100 unit/mL 18 unit subcut BID 07/01/23 07/03/23 History (3 mL) subcutaneous pen 9 unit nystatin 100,000 unit/gram topical 1 applic topical BID PRN PRN SKIN 07/01/23 Unknown History powder ([facility]) pantoprazole 40 mg tablet,delayed 40 mg PO BID 07/01/23 07/04/23 History release baclofen 5 mg tablet 5 mg PO QHS 09/17/23 Unknown History famotidine 20 mg tablet 20 mg PO Q12.TCU 09/17/23 Unknown History Allergy/AdvReac Type Severity Reaction Status Date / Time amlodipine (From Norvasc) Allergy Severe Hives Verified 09/17/23 16:53 ampicillin sodium (From Allergy Severe Hives Verified 09/17/23 16:53 Unasyn) buspirone HCl (From BuSpar) Allergy Severe Hives Verified 09/17/23 16:53 cefadroxil (From Duricef) Allergy Severe Hives Verified 09/17/23 16:53 lisinopril Allergy Severe Swelling Verified 09/17/23 16:53 naproxen Allergy Severe Hives Verified 09/17/23 16:53 niacin (From Niaspan Allergy Severe Hives Verified 09/17/23 16:53 Extended-Release) sulbactam sodium (From Allergy Severe Hives Verified 09/17/23 16:53 Unasyn) Sulfa (Sulfonamide Allergy Severe Hives Verified 09/17/23 16:53 Antibiotics) tramadol Allergy Mild Nausea Verified 09/17/23 16:53 cephalexin (From Keflex) Allergy Vomiting Verified 09/17/23 16:53 omeprazole AdvReac Severe Other Verified 09/17/23 16:53 losartan AdvReac Swelling Verified 09/17/23 16:53 Family History Mother Diabetes Anemia Father Hypertension LUNG/RESPIRATORY DISEASE Surgical History History of esophagogastroduodenoscopy (EGD) History of coronary artery stent placement History of cardiac catheterization History of appendectomy S/P arteriovenous (AV) fistula creation (~06/16/20) History of cholecystectomy History of left salpingo-oophorectomy History of radical hysterectomy History of left knee surgery History of ventral hernia repair History of liver transplant Social History housing: apartment current occupational status: disabled Smoking Status: Never smoker substance use type: does not use ROS ROS ED Constitutional Constitutional ED: Denies chills or fever(s) Eyes Eyes: Denies change in vision ENT ENT ED: Denies rhinorrhea or sore throat Cardiovascular Cardiovascular: Denies chest pain or palpitations Respiratory/Chest Respiratory/Chest: Denies cough or dyspnea Gastrointestinal Gastrointestinal: Denies abdominal pain, nausea or vomiting Genitourinary Genitourinary ED: Denies dysuria or hematuria Musculoskeletal Musculoskeletal: Reports neck pain and other Details: Right knee, right shoulder, right ankle pain Integumentary Denies abscess Neurologic Neurologic: Denies headache(s) Psychiatric Psychiatric: Denies anxiety or depression EXAM Physical Exam Const Vital Signs: 09/17/23 16:34 09/17/23 19:19 09/17/23 20:42 Temperature 98.4 F Temperature Source Temporal Pulse Rate 86 Respiratory Rate 16 Respiratory Effort Normal Blood Pressure 111/50 L Blood Pressure Mean 70 Pulse Ox 92 99 Oxygen Delivery Method Room Air Room Air Positive well nourished and obese Nutritional Appearance: obese HEENT Reports normocephalic and TM's normal bilaterally Eyes PERRL and EOMs intact bilaterally Neck Neck Narrative: No midline spinal deformity or step-off. Tenderness of the left paraspinal musculature. Resp normal respiratory effort Cardio regular rate and regular rhythm Extremity Extremity Narrative: Right shoulder tender to palpation over the deltoid. I am able to passively range this, however when the patient tries to flex or abduct the shoulder she has pain. No obvious deformity. No bruising. Right knee tender to palpation over the patella. No ligamentous laxity. Extensor mechanism is intact. Right ankle tender to palpation over the lateral malleolus. There is swelling and bruising. Right foot shows bruising. Neurovascular intact. There is cap refill. Neuro oriented x3, CN's II-XII intact bilaterally, moves all extremities and no focal motor deficits Motor Exam: general weakness Psych mental status grossly normal MDM MDM MDM Narrative Medical decision making narrative: Patient presenting with right ankle, foot, elbow, right shoulder pain as well as pain in the neck and head. She had a fall at home. Did not lose consciousness and she is not on any blood thinners. Differential includes knee strain, ankle fracture, foot fracture, shoulder fracture, C-spine fracture, intracranial hemorrhage, skull fracture. X-rays of the right shoulder and right elbow interpreted by myself are negative. X-rays of the right knee interpreted by myself shows no acute bony abnormalities. X-rays of the right ankle show a healing distal fibular fracture. Patient does have pain here. I put her in a walking boot. On reevaluation she does not think she will be able to go home tonight. She is going to require staying overnight so she can have family assist her tomorrow. Obtain some screening blood work and her CBC shows leukopenia which is not new for the patient. Hemoglobin 9.8 which is near baseline. Renal function is at baseline for end-stage renal disease on dialysis. Discussed with hospitalist for admission. Impression: 1. Fall 2. Closed head injury 3. Cervical strain 4. Right shoulder contusion 5. Right knee contusion 6. right ankle sprain 7. Right foot contusion 8. Debility Lab Data Labs: Laboratory Results - last 24 hr 09/17/23 21:06 WBC 3.9 L RBC 3.22 L Hgb 9.8 L Hct 32.5 L MCV 100.9 H MCH 30.4 MCHC 30.2 L RDW Std Deviation 72.6 H RDW Coeff of Tami 19.7 H Plt Count 82 L MPV 10.5 Immature Gran % (Auto) 1.300 H Neut % (Auto) 72.8 H Lymph % (Auto) 15.0 L Starke % (Auto) 7.3 Eos % (Auto) 3.1 Baso % (Auto) 0.5 Absolute Neuts (auto) 2.8 Absolute Lymphs (auto) 0.58 L Nucleated RBC % 0 Differential Comment SCANNED Polychromasia RARE Hypochromasia 1+ Anisocytosis 1+ Crenated Cell RARE Sodium 135 L Potassium 5.2 H Chloride 96 L Carbon Dioxide 31.0 Anion Gap 8 BUN 33 H Creatinine 5.53 H Estim Creat Clear Calc 12.16 Est GFR (MDRD) Af Amer 10 L Est GFR (MDRD) Non-Af 8 L BUN/Creatinine Ratio 6.0 L Glucose 235 H Calcium 9.3 Radiography Diagnostic Testing: Clinical Impression(s) from Imaging Studies Ankle X-Ray 09/17/23 17:45 IMPRESSION: 1. Significant soft tissue swelling both medially and laterally. No soft tissue gas. No radiopaque foreign body. 2. Healed or healing distal fibular fracture with callus formation however fracture plane is not visible. 3. Diffuse osteopenia. 4. No acute fracture or dislocation noted. Electronically Signed: Virgilio Garcia MD at 18:21 EDT , Elbow X-Ray 09/17/23 17:45 IMPRESSION: 1. No evidence fracture, malalignment or focal bony or joint space abnormality. Electronically Signed: Virgilio Garcia MD at 18:25 EDT , Foot X-Ray 09/17/23 17:45 IMPRESSION: 1. No evidence of fracture dislocation or acute bony changes. 2. Osteophyte formation and midfoot. Small plantar spur. 3. Dorsal soft tissue swelling in the forefoot. Electronically Signed: Virgilio Garcia MD at 18:24 EDT , Shoulder X-Ray 09/17/23 17:45 IMPRESSION: 1. No fracture or dislocation involving the glenohumeral joint. 2. AC joint degenerative changes are present. Electronically Signed: Virgilio Garcia MD at 18:28 EDT , Brain CT 09/17/23 20:39 IMPRESSION: 1. Normal CT examination of the brain. 2. No intracranial evidence of acute traumatic injury. 3. No intracranial mass, hemorrhage or acute territorial infarct. 4. No fractures noted. 5. No radiographically significant sinus disease.. Electronically Signed: Virgilio Garcia MD at 21:26 EDT , Cervical Spine CT 09/17/23 20:39 IMPRESSION: 1. No evidence of acute cervical spinal fracture or spondylolisthesis. No acutely acquired canal stenosis. 2. Cervical spondylosis with disc changes at C5-6 and C6-7. No acute disc herniation, no foraminal stenosis. Electronically Signed: Virgilio Garcia MD at 21:28 EDT , Discharge Plan Triage Chief Complaint: Fall ED Provider: Luiz Mcneal Dx/Rx/DC Orders Prescriptions: No Action bisacodyl [Dulcolax (bisacodyl)] 10 mg suppository 10 mg VA DAILY PRN (Reason: constipation) Qty: 30 0RF ascorbic acid (vitamin C) 500 MG tablet,chewable 1,000 mg PO DAILY Patient Comments: supplement cholecalciferol (vitamin D3) 1,000 UNIT tablet 1,000 unit PO BID Patient Comments: bone health ropinirole 1 mg tablet 1 mg PO DAILY tacrolimus [Prograf] 1 MG capsule 0.5 mg PO BID vitamin B complex 1 EACH tablet 1 tablet PO DAILY sevelamer carbonate [Renvela] 800 MG tablet 1,600 mg PO TIDCM ropinirole 2 MG tablet extended release 24 hr 2 mg PO QHS nitroglycerin 0.4 mg Tablet, Sublingual 0.4 mg sublingual Q5M PRN (Reason: Cardiac/Chest Pain) Qty: 30 0RF sertraline [Zoloft] 50 MG tablet 50 mg PO DAILY Patient Comments: depression biotin 1 mg Capsule 1 mg PO BID albuterol sulfate 1 PUFF inhaler 2 puff IH Q4H PRN PRN (Reason: Sob &/Or Wheezing) 30 Days Qty: 8.6 0RF Otezla 30 mg tablet 30 mg PO DAILY acetaminophen 325 mg capsule 650 mg PO Q4H PRN (Reason: fever or pain) aluminum-magnesium hydroxide 225-200 mg/5 mL suspension 30 ml PO Q4H PRN PRN (Reason: GI distress) melatonin 10 mg tablet 10 mg PO QHS midodrine 10 mg tablet 10 mg PO MOWEFR PRN (Reason: hypotension) Patient Comments: ON HOLD FOR LAST 2-3 WEEKS Rx Instructions: afternoon torsemide 60 mg tablet 60 mg PO DAILY insulin lispro [Humalog KwikPen Insulin] 100 unit/mL insulin pen 10 unit subcut TIDCM dextrose [Gluco Burst] 40 % gel 15 g PO Q15M PRN (Reason: hypoglycemia) Patient Comments: tablet form Rx Instructions: until symptoms of low blood sugar are controlled hydrocodone-acetaminophen 5-325 mg Tablet 1 tab PO Q6H PRN PRN (Reason: Pain Score 6-10) 2 Days Qty: 6 0RF levothyroxine 88 mcg tablet 88 mcg PO DAILY trazodone 100 mg tablet 200 mg PO QHS gabapentin 100 mg capsule 200 mg PO QHS Patient Comments: TAKE 2 CAPSULES BY MOUTH AT BEDTIME sucralfate [Carafate] 1 gram tablet 1 g PO BID Qty: 30 0RF omega 1-use-ttg-fish oil [Fish Oil] 1,200 (144-216) mg capsule 1 cap PO DAILY aspirin [Adult Aspirin Regimen] 81 mg tablet,delayed release (DR/EC) 81 mg PO DAILY carvedilol 12.5 mg tablet 6.25 mg PO BID doxycycline hyclate 100 mg capsule 100 mg PO BID pantoprazole 40 mg tablet,delayed release (DR/EC) 40 mg PO BID nystatin [Nyamyc] 100,000 unit/gram Powder 1 applic topical BID PRN PRN (Reason: SKIN) Protocol: *Topical Application Instructions APPLICATION INSTRUCTIONS: apply to abdominal folds insulin glargine-yfgn 100 unit/mL (3 mL) Insulin Pen 18 unit subcut BID dicyclomine 10 mg capsule 20 mg PO Q6H PRN PRN (Reason: abdominal discomfort) Qty: 30 0RF famotidine 20 mg tablet 20 mg PO Q12.TCU baclofen 5 mg tablet 5 mg PO QHS Primary Care Provider: Velia Archuleta Referrals: Velia Archuleta MD [Primary Care Provider] - Print Language: Singaporean
[2023-09-17 21:27] LABS: Absolute Lymphocyte Count 0.58 X10^3/uL (0.83-4.51); Absolute Neutrophil Count 2.8 X10^3/uL (2.0-7.7); Basophil# 0.02 X10^3/uL; Basophil% 0.5 % (0-1); Eosinophil# 0.12 X10^3/uL; Eosinophils% 3.1 % (0-5); Hematocrit 32.5 % (37-47); Hemoglobin 9.8 g/dL (12.0-15.0); Lymphocyte # 0.58 X10^3/ul (0.83-4.51); Mean Corp Hgb Conc 30.2 g/dL (32-36); Mean Corpuscular Hgb 30.4 pg (27.0-32.0); Mean Corpuscular Volume 100.9 fL (81-99); Mean Platelet Vol. 10.5 fl (6.2-12.0); Monocyte# 0.28 X10^3/uL; Monocyte% 7.3 % (0-10); NRBC Flagged by Analyzer 0 % (0-5); Neutrophil # 2.81 X10^3/uL (2.7-7.7); Neutrophil % 72.8 % (47-70); POSITIVE COUNT YES; POSITIVE DIFFERENTIAL YES; POSITIVE MORPHOLOGY YES; Platelet Count 82 K/mm3 (150-450); RBC Distribution Width CV 19.7 % (11.6-14.6); RBC Distribution Width SD 72.6 fl (35.1-43.9); Red Blood Count 3.22 M/mm3 (4.2-5.4); White Blood Count 3.9 K/mm3 (4.4-11.0)
[2023-09-17 21:28] LABS: Differential Indicated SCAN CRITERIA MET
[2023-09-17 21:42] LABS: Anion Gap 8 (5-15); BUN 33 mg/dL (7-18); Calcium,Total 9.3 mg/dL (8.5-10.1); Chloride 96 mmol/L (98-107); Creatinine, Serum 5.53 mg/dL (0.55-1.02); EST Glomerular Filtration Rate 8 mL/min (>60); Est Glom Filt Rate - Afr Amer 10 mL/min (>60); Estimated Creatinine Clearance 12.16 ml/min; Glucose 235 mg/dL (74-106); Potassium 5.2 mmol/L (3.5-5.1); Sodium Level 135 mmol/L (136-145)
[2023-09-17 22:00] LABS: Anisocytosis 1+; Hypochromasia 1+; Polychromasia RARE
[2023-09-17 22:01] LABS: Differential Comment SCANNED
[2023-09-17 22:02] LABS: Crenated RBC RARE
--- NOTE | 2023-09-17 22:28 | HP.PCM.HOS_ITS ---
[facility] General Date of Admission: 09/17/23 Date of Service: 09/17/23 Chief Complaint: Fall with subsequent Right Ankle Pain and Inability to Ambulate. HPI Narrative CHRISTINA KUO, is a 68 F with a past medical history of essential hypertension, hyperlipidemia, hypothyroidism, obesity; with BMI of 39.2 this admission, RAUL; noncompliant with CPAP, diabetes mellitus type 2; of unknown control, history of diabetic foot ulcer, end-stage renal disease; on dialysis ([id number]); on midodrine, history of Mora with cirrhosis; with subsequent liver transplant on Tacrolimus (2008), history of uterine and cervical cancer; status post radical hysterectomy, history of DVT, history of coronary artery disease; status post stent placement, history of chronic diastolic CHF; with preserved left ventricular ejection fraction, history of psoriasis, history of Krueger's palsy, restless leg syndrome, depression, GERD, osteoarthritis, history of generalized weakness with ambulatory dysfunction and multiple falls with patient using a rollator to mobilize at baseline, chronic anemia with thrombocytopenia with baseline platelet level of 80 noted last admission here on March 27, 2023 (62-112), history of admission here from April 15, 2023 to April 19, 2023 for treatment of Influenza A and UTI; with Aerococcus with Sepsis and recent ER evaluation here on August 15, 2023 for fall with Head CT that admission positive for small midline subdural hematoma; with subsequent transfer to [facility] who re-presents to [facility] ER complaining of another fall with subsequent Right ankle pain and inability to ambulate. Ms. Kuo reports her symptoms began after she fell last night causing her to injure her Right ankle, Right knee and Right shoulder. She is also complaining of neck pain after she hit her head but she denies LOC with her fall. She denies being on blood thinners since her recent SDH last month but she admits to being recently restarted on daily BASA. She did take a [place] prior to coming on for further evaluation and treatment with minimal subsequent improvement. There is no report of fever, chills, nausea, vomiting, diaphoresis, chest pain, chest pressure or focal neurologic deficits but her Right ankle is painful at rest and is made worse with any attempt at weight bearing with malformation also noted. In the ER she was noted to have numerous imaging studies that were essentially negative for acute pathologic changes except for a suspected chronic mild fracture of her Right ankle complicated by Closed Head Injury with Cervical Strain, Right Knee, Shoulder and Ankle Contusion causing clinical evidence of generalized weakness with ambulatory dysfunction after recent fall and she was then admitted to the general medical floor under observation status for ongoing care for a stay that is expected to be less than 2 midnights. [facility] Medical History (Updated 09/18/23 @ 02:[address] Jag Everett, DO) Diabetes Dialysis patient Sleep apnea Easy bruising Restless legs Difficulty swallowing Dietary restriction History of ulceration Shortness of breath on exertion CPAP (continuous positive airway pressure) dependence Influenza A Sepsis Acute dyspnea Pneumonia Anxiety Depression Hypothyroidism Irregular heart beat Hypertension DVT (deep venous thrombosis) Multiple falls Uses wheelchair History of renal dialysis Osteoporosis Cirrhosis Non-smoker ESRD (end stage renal disease) Pancytopenia Chronic renal failure, stage 5 Infection involving suture with abscess Wears glasses Wears dentures Cancer Insulin dependent diabetes mellitus Anemia Hx of Krueger's palsy Back pain Gastric reflux COPD (chronic obstructive pulmonary disease) History of edema History of echocardiogram (~01/22/20) History of stress test (~12/07/19) Cardiology follow-up encounter LIVER TRANSPLANT History of uterine cancer Hypertension Anemia in chronic kidney disease Home Medications ?Medication ?Instructions ?Recorded ?Last Taken ?Type ascorbic acid (vitamin C) 500 mg 1,000 mg PO DAILY supplement 02/20/15 07/03/23 History chewable tablet cholecalciferol (vitamin D3) 25 1,000 unit PO BID supplement 02/20/15 07/03/23 History mcg (1,000 unit) tablet tacrolimus 1 mg capsule, 0.5 mg PO BID REJECTION 09/10/19 07/04/23 History immediate-release (Prograf) vitamin B complex 1 tablet PO DAILY SUPPLEMENT 09/10/19 07/03/23 History ropinirole 1 mg tablet 1 mg PO DAILY restless legs 05/23/20 07/04/23 History ropinirole 2 mg tablet,extended 2 mg PO QHS restless legs 06/10/20 07/03/23 History release 24 hr sevelamer carbonate 800 mg tablet 1,600 mg PO TIDCM kidney disease 06/10/20 07/03/23 History (Renvela) nitroglycerin 0.4 mg sublingual 0.4 mg sublingual Q5M PRN 04/29/21 Unknown Rx tablet Cardiac/Chest Pain #30 tabs biotin 1 mg capsule 1 mg PO BID supplement 08/11/21 07/03/23 History sertraline 50 mg tablet (Zoloft) 50 mg PO DAILY mood 08/11/21 07/04/23 History albuterol sulfate 90 mcg/actuation 2 puff IH Q4H PRN PRN Sob &/Or 10/25/21 Unknown Rx aerosol inhaler Wheezing 30 days #8.6 grams apremilast 30 mg tablet (Otezla) 30 mg PO DAILY 09/08/22 07/03/23 History gabapentin 100 mg capsule 200 mg PO QHS 12/31/22 07/03/23 History levothyroxine 88 mcg tablet 88 mcg PO DAILY 12/31/22 07/04/23 History sucralfate 1 gram tablet (Carafate) 1 g PO BID #30 tabs 12/31/22 Unknown Rx trazodone 100 mg tablet 200 mg PO QHS 12/31/22 07/03/23 History aspirin 81 mg tablet,delayed 81 mg PO DAILY 01/28/23 06/30/23 History release (Adult Aspirin Regimen) omega 1-sgm-rup-fish oil 1,200 mg 1 cap PO DAILY SUPPLEMENT 01/28/23 06/30/23 History (144 mg-216 mg) capsule (Fish Oil) bisacodyl 10 mg rectal suppository 10 mg ID DAILY PRN constipation 02/12/23 07/03/23 Rx (Dulcolax (bisacodyl)) #30 ea acetaminophen 325 mg capsule 650 mg PO Q4H PRN fever or pain 04/15/23 Unknown History aluminum-magnesium hydroxide 225 30 ml PO Q4H PRN PRN GI distress 04/15/23 Unknown History mg-200 mg/5 mL oral suspension insulin lispro 100 unit/mL 10 unit subcut TIDCM 04/15/23 07/03/23 08:00 History subcutaneous pen (Humalog KwikPen 8 units (U-100) Insulin) melatonin 10 mg tablet 10 mg PO QHS 04/15/23 07/03/23 History midodrine 10 mg tablet 10 mg PO MOWEFR PRN hypotension 04/15/23 Unknown History torsemide 60 mg tablet 60 mg PO DAILY 04/15/23 07/03/23 History hydrocodone-acetaminophen 5-325mg 1 tab PO Q6H PRN PRN Pain Score 04/19/23 Unknown Rx 5mg-325mg 6-10 2 days #6 tabs dicyclomine 10 mg capsule 20 mg (2 x 10 mg) PO Q6H PRN PRN 06/02/23 Unknown Rx abdominal discomfort #30 CAPSULES carvedilol 12.5 mg tablet 6.25 mg PO BID 07/01/23 07/04/23 History doxycycline hyclate 100 mg capsule 100 mg PO BID 07/01/23 07/03/23 History insulin glargine-yfgn 100 unit/mL 18 unit subcut BID 07/01/23 07/03/23 History (3 mL) subcutaneous pen 9 unit nystatin 100,000 unit/gram topical 1 applic topical BID PRN PRN SKIN 07/01/23 Unknown History powder ([facility]) pantoprazole 40 mg tablet,delayed 40 mg PO BID 07/01/23 07/04/23 History release baclofen 5 mg tablet 5 mg PO QHS 09/17/23 Unknown History famotidine 20 mg tablet 20 mg PO Q12.TCU 09/17/23 Unknown History Allergy/AdvReac Type Severity Reaction Status Date / Time amlodipine (From Norvasc) Allergy Severe Hives Verified 09/17/23 16:53 ampicillin sodium (From Allergy Severe Hives Verified 09/17/23 16:53 Unasyn) buspirone HCl (From BuSpar) Allergy Severe Hives Verified 09/17/23 16:53 cefadroxil (From Duricef) Allergy Severe Hives Verified 09/17/23 16:53 lisinopril Allergy Severe Swelling Verified 09/17/23 16:53 naproxen Allergy Severe Hives Verified 09/17/23 16:53 niacin (From Niaspan Allergy Severe Hives Verified 09/17/23 16:53 Extended-Release) sulbactam sodium (From Allergy Severe Hives Verified 09/17/23 16:53 Unasyn) Sulfa (Sulfonamide Allergy Severe Hives Verified 09/17/23 16:53 Antibiotics) tramadol Allergy Mild Nausea Verified 09/17/23 16:53 cephalexin (From Keflex) Allergy Vomiting Verified 09/17/23 16:53 omeprazole AdvReac Severe Other Verified 09/17/23 16:53 losartan AdvReac Swelling Verified 09/17/23 16:53 Family History Mother Diabetes Anemia Father Hypertension LUNG/RESPIRATORY DISEASE Surgical History History of esophagogastroduodenoscopy (EGD) History of coronary artery stent placement History of cardiac catheterization History of appendectomy S/P arteriovenous (AV) fistula creation (~06/16/20) History of cholecystectomy History of left salpingo-oophorectomy History of radical hysterectomy History of left knee surgery History of ventral hernia repair History of liver transplant Social History housing: apartment current occupational status: disabled Smoking Status: Never smoker substance use type: does not use ROS ROS Narrative Review of systems: Constitutional: Patient denies fever or chills. Eyes: Patient denies changes in vision or discharge from eyes. ENT: Patient denies runny nose, sore throat or ear pain. CV: Patient denies chest pain, heart racing or palpitations. GI: Patient denies abdominal pain, nausea, vomiting, diarrhea or constipation. : Patient denies dysuria or hematuria. MSK: Patient admits to occipital head pain, neck pain, and pain from Right Ankle and shoulder as per HPI. Skin: Patient denies abscess, rash or jaundice. Neuro: Patient denies headache, paresthesias or focal neurologic deficits - but she does admit to poor balance with increasing falls. Psych: Patient denies symptoms of uncontrolled depression or anxiety. Endocrine: Patient denies polyuria, polydipsia or polyphagia. Allergies: Patient denies lip swelling, tongue swelling or urticaria. 14 point ROS otherwise negative except for positives noted above in HPI. Vital Signs Vital Signs Vital Signs: 09/17/23 16:34 09/17/23 19:19 09/17/23 20:42 Temperature 98.4 F Temperature Source Temporal Pulse Rate 86 Respiratory Rate 16 Respiratory Effort Normal Blood Pressure 111/50 L Blood Pressure Mean 70 Pulse Ox 92 99 Oxygen Delivery Method Room Air Room Air Weight Weight: 235 lb 12.903 oz Body Mass Index (BMI) 39.2 Physical Exam Const alert, oriented x3 and no apparent distress Constitutional Narrative: Patient is morbidly obese and appears chronically ill. General Appearance: cooperative HEENT normocephalic, head/scalp atraumatic, hearing grossly normal bilaterally and moist oral mucous membranes Eyes PERRL and EOMs intact bilaterally Neck no lymphadenopathy and supple Neck Narrative: Pain noted with movement. Resp normal respiratory effort, no retractions, no use of accessory muscles and clear to auscultation bilaterally Cardio regular rate and regular rhythm GI normal to inspection, nondistended, normoactive bowel sounds, soft to palpation, non-tender and non-distended GI Narrative: Obese. Extremity normal to inspection, full ROM and no clubbing, cyanosis or edema Skin Skin Narrative: Patient has no evidence of abscess, rash or jaundice. Neuro oriented x3, CN's II-XII intact bilaterally, moves all extremities and no focal motor deficits Sensorium / Orientation: awake, alert, oriented to person, oriented to place and oriented to time Speech: speech normal Psych affect normal Results Medical Records Data Attestation: I reviewed the patient's medical records Lab / Micro Data Attestation: I reviewed the patient's lab results. 09/17/23 21:06 09/17/23 21:06 Labs: Laboratory Results - last 24 hr 09/17/23 21:06: WBC 3.9 L, RBC 3.22 L, Hgb 9.8 L, Hct 32.5 L, MCV 100.9 H, MCH 30.4, MCHC 30.2 L, RDW Std Deviation 72.6 H, RDW Coeff of Tami 19.7 H, Plt Count 82 L, MPV 10.5, Immature Gran % (Auto) 1.300 H, Neut % (Auto) 72.8 H, Lymph % (Auto) 15.0 L, [place] % (Auto) 7.3, Eos % (Auto) 3.1, Baso % (Auto) 0.5, Absolute Neuts (auto) 2.8, Absolute Lymphs (auto) 0.58 L, Nucleated RBC % 0, Differential Comment SCANNED, Polychromasia RARE, Hypochromasia 1+, Anisocytosis 1+, Crenated Cell RARE, Sodium 135 L, Potassium 5.2 H, Chloride 96 L, Carbon Dioxide 31.0, Anion Gap 8, BUN 33 H, Creatinine 5.53 H, Estim Creat Clear Calc 12.16, Est GFR (MDRD) Af Amer 10 L, Est GFR (MDRD) Non-Af 8 L, BUN/Creatinine Ratio 6.0 L, G lucose 235 H, Calcium 9.3 Imaging Radiology Impression Ankle X-Ray 09/17/23 17:45 IMPRESSION: 1. Significant soft tissue swelling both medially and laterally. No soft tissue gas. No radiopaque foreign body. 2. Healed or healing distal fibular fracture with callus formation however fracture plane is not visible. 3. Diffuse osteopenia. 4. No acute fracture or dislocation noted. Electronically Signed: Virgilio Garcia MD at 18:21 EDT , Elbow X-Ray 09/17/23 17:45 IMPRESSION: 1. No evidence fracture, malalignment or focal bony or joint space abnormality. Electronically Signed: Virgilio Garcia MD at 18:25 EDT , Foot X-Ray 09/17/23 17:45 IMPRESSION: 1. No evidence of fracture dislocation or acute bony changes. 2. Osteophyte formation and midfoot. Small plantar spur. 3. Dorsal soft tissue swelling in the forefoot. Electronically Signed: Virgilio Garcia MD at 18:24 EDT , Shoulder X-Ray 09/17/23 17:45 IMPRESSION: 1. No fracture or dislocation involving the glenohumeral joint. 2. AC joint degenerative changes are present. Electronically Signed: Virgilio Garcia MD at 18:28 EDT , Brain CT 09/17/23 20:39 IMPRESSION: 1. Normal CT examination of the brain. 2. No intracranial evidence of acute traumatic injury. 3. No intracranial mass, hemorrhage or acute territorial infarct. 4. No fractures noted. 5. No radiographically significant sinus disease.. Electronically Signed: Virgilio Garcia MD at 21:26 EDT , Cervical Spine CT 09/17/23 20:39 IMPRESSION: 1. No evidence of acute cervical spinal fracture or spondylolisthesis. No acutely acquired canal stenosis. 2. Cervical spondylosis with disc changes at C5-6 and C6-7. No acute disc herniation, no foraminal stenosis. Electronically Signed: Virgilio Garcia MD at 21:28 EDT , Assessment & Plan Assessment/Plan (1) Fall: QUALIFIERS: Encounter type: initial encounter Qualified Code(s): W19.XXXA - Unspecified fall, initial encounter (2) Closed right ankle fracture: QUALIFIERS: Encounter type: initial encounter Qualified Code(s): S82.891A - Other fracture of right lower leg, initial encounter for closed fracture (3) Closed head injury: QUALIFIERS: Encounter type: initial encounter Qualified Code(s): S09.90XA - Unspecified injury of head, initial encounter (4) Cervical strain, acute: QUALIFIERS: Encounter type: initial encounter Qualified Code(s): S16.1XXA - Strain of muscle, fascia and tendon at neck level, initial encounter (5) Contusion of right knee: QUALIFIERS: Encounter type: initial encounter Qualified Code(s): S80.01XA - Contusion of right knee, initial encounter (6) Contusion of right shoulder: QUALIFIERS: Encounter type: initial encounter Qualified Code(s): S40.011A - Contusion of right shoulder, initial encounter (7) Ambulatory dysfunction: (8) Generalized weakness: (9) History of subdural hematoma (post traumatic): PLAN: Plan 1. Mechanical Fall with suspected Right Ankle Fracture - Admit to general medical floor under observation status. We will consult podiatry to see this patient on-rounds in the AM for further recommendations. Check CT of Right Foot to confirm suspicion of fracture suspected on X-rays. PT/OT and Case Management to consult and treat as patient may benefit from ECF for subacute rehabilitation vs placement due to serial readmission with patient likely unable to manage herself effectively at home with help appreciated in advance. She would like to return to [facility] if possible because they are able to handle HD patients. Give Tylenol prn for [id number] (level 1-5/10) pain or fever. Continue [place] prn for severe (level 6-10/10) pain. 2. Closed Head Injury with Cervical Strain, Right Knee, Shoulder and Ankle Contusion causing subsequent [id number] generalized weakness with ambulatory dysfunction due to severe musculoskeletal pain arising from #1 in the setting of a known history of generalized weakness with ambulatory dysfunction and multiple falls with patient using a rollator to mobilize at baseline - Imaging negative for acute pathologic changes with appearance of chronic fracture in the Right Ankle. Patient will need to be on fall precautions and only be gotten up with assistance. 3. Recent ER evaluation here on August 15, 2023 for fall with Head CT that admission positive for small midline subdural hematoma; with subsequent transfer to [facility] complicating #1 & #2 - Noted. Avoid blood thinners other than current BASA to prevent potential recurrence. 4. History of admission here from April 15, 2023 to April 19, 2023 for treatment of Influenza A and UTI; with Aerococcus with Sepsis compounding #1 - #3 - Noted with pattern of serial readmission. 5. Chronic anemia with thrombocytopenia with baseline platelet level of 80 noted last admission here on March 27, 2023 (62-112) - Noted with platelet count of 82K this admission. 6. History of Mora with cirrhosis; with subsequent liver transplant on Tacrolimus (2008) adding to the pathology of #1 - #5 - Continue Tacrolimus as previous. 7. End-stage renal disease; on dialysis ([id number]); on midodrine amplifying the negative impact of #1 - #6 - We will resume Midodrine as previous and consult nephrology to see this patient on-rounds in the AM to continue HD with help appreciated in advance. 8. Obesity; with BMI of 39.2 this admission adding to the complexity of #1 - #7 - Weight loss will be recommended. This adds to the complexity of her case and may hamper recovery. 9. Essential hypertension - Continue home regimen. 10. Hyperlipidemia - Resume statin. 11. Hypothyroidism - Continue Synthroid and check TSH. 12. RAUL; noncompliant with CPAP - Patient will be encouraged to use CPAP. 13. Diabetes mellitus type 2; of unknown control - ADA diet. FSBS q. AC/HS plus SSI. Check HgbA1c to objectively assess quality of diabetic control. 14. History of diabetic foot ulcer - Noted. 15. History of uterine and cervical cancer; status post radical hysterectomy - Noted. 16. History of DVT - Stable. 17. History of coronary artery disease; status post stent placement - Noted. 18. History of chronic diastolic CHF; with preserved left ventricular ejection fraction - Stable with no signs of volume overload at this time. 19. History of psoriasis - Stable. 20. History of Krueger's palsy - Noted. 21. Restless leg syndrome - Stable. 22. Depression - Resume home regimen as previous. 23. GERD - Continue Protonix 40 mg PO BID plus Sucralfate. 24. Osteoarthritis - Stable. 25. DVT prophylaxis - SCD's only with recent SDH after fall last month. Total time: Approximately 85 minutes. Charges/Coding Visit Charges OBSV E&M: [id number] Observ/hosp same date L2
[2023-09-18] VITALS (13 sets, daily range): BP systolic 119–250; BP diastolic 43–66; PULSE 73–87; RESP 16–169; TEMP 36.9; O2SAT 96–100; BMI 38.1
[2023-09-18] MEDS: Morphine 2 MG/ML Syringe IV (02:10)
--- NOTE | 2023-09-18 03:55 | CT_ITS ---
EXAM: CT RIGHT LOWER EXTREMITY WITHOUT INTRAVENOUS CONTRAST CLINICAL INDICATION: Suspected Right Ankle Fracture. TECHNIQUE: Helically acquired images were obtained of the right lower extremity without intravenous contrast. 2-D reformats were performed by the technologist. This CT exam was performed using one or more of the following dose reduction techniques: automated exposure control, adjustment of the mA and/or kV according to patient size, and/or use of iterative reconstruction technique. RADIATION DOSE: CTDIvol = 15.35 mGy, DLP = 357.60 mGy-cm COMPARISON: Ankle x-ray 09/17/2023. FINDINGS: BONES/JOINTS: Old healed fibular fracture. Preservation of the joint space. No sclerotic or destructive changes. SOFT TISSUES: Mild subcutaneous edema. Diffuse muscular atrophy. No radiopaque foreign body. CT/Extremity Lower without Contra IMPRESSION: 1. Mild subcutaneous edema. 2. Diffuse muscular atrophy. 3. Old healed fibular fracture. No acute fracture. Electronically Signed: Aravind Morin MD at 6:00 EDT ,
[2023-09-18] MEDS: Sucralfate 1 GM Tablet PO ×2 (05:56→15:48)
[2023-09-18] MEDS: Levothyroxine 88 MCG Tablet PO (05:56)
[2023-09-18] MEDS: Menthol/Lanolin/Calamine/Znox 113 GM Tube 1 APPLIC TOPICAL ×2 (05:56→08:40)
[2023-09-18] MEDS: Bisacodyl 10 MG Suppository RC (06:04)
[2023-09-18] MEDS: HYDROcodone Bitartrate/Apap 5/325 Tablet PO (06:04)
[2023-09-18 06:07] LABS: Absolute Lymphocyte Count 0.68 X10^3/uL (0.83-4.51); Absolute Neutrophil Count 2.9 X10^3/uL (2.0-7.7); Basophil# 0.02 X10^3/uL; Basophil% 0.5 % (0-1); Eosinophil# 0.14 X10^3/uL; Eosinophils% 3.4 % (0-5); Hematocrit 30.8 % (37-47); Hemoglobin 9.3 g/dL (12.0-15.0); Lymphocyte # 0.68 X10^3/ul (0.83-4.51); Lymphocyte % 16.5 % (19-41); Mean Corp Hgb Conc 30.2 g/dL (32-36); Mean Corpuscular Hgb 30.4 pg (27.0-32.0); Mean Corpuscular Volume 100.7 fL (81-99); Mean Platelet Vol. 10.5 fl (6.2-12.0); Monocyte# 0.32 X10^3/uL; Monocyte% 7.8 % (0-10); NRBC Flagged by Analyzer 0 % (0-5); Neutrophil # 2.92 X10^3/uL (2.7-7.7); Neutrophil % 71.1 % (47-70); POSITIVE COUNT YES; POSITIVE MORPHOLOGY YES; Platelet Count 83 K/mm3 (150-450); RBC Distribution Width CV 19.6 % (11.6-14.6); RBC Distribution Width SD 71.4 fl (35.1-43.9); Red Blood Count 3.06 M/mm3 (4.2-5.4); White Blood Count 4.1 K/mm3 (4.4-11.0)
[2023-09-18 06:14] LABS: Differential Indicated SCAN CRITERIA MET
[2023-09-18 06:47] LABS: ALB/GLOB Ratio 0.7 RATIO (0.9-2.4); AST(SGOT) 14 U/L (15-37); Alanine Aminotransfer ALT/SGPT 21 U/L (13-56); Albumin, Serum 2.5 g/dL (3.2-5.0); Alkaline Phosphatase 110 U/L (45-117); Anion Gap 9 (5-15); BUN 38 mg/dL (7-18); BUN/Creat Ratio 6.6 RATIO (10-20); Calcium,Total 9.1 mg/dL (8.5-10.1); Chloride 96 mmol/L (98-107); Creatinine, Serum 5.72 mg/dL (0.55-1.02); EST Glomerular Filtration Rate 8 mL/min (>60); Est Glom Filt Rate - Afr Amer 10 mL/min (>60); Estimated Creatinine Clearance 11.57 ml/min; Globulin 3.5 g/dL (2.2-4.2); Glucose 119 mg/dL (74-106); Magnesium 2.5 mg/dL (1.6-2.6); Phosphorus 4.7 mg/dL (2.5-4.9); Potassium 5.3 mmol/L (3.5-5.1); Sodium Level 132 mmol/L (136-145); Thyroid Stim Hormone (TSH) 0.62 uIU/mL (0.358-3.74)
[2023-09-18 07:01] LABS: Bacteria 0 SEEN /hpf (None Seen); Mucous, Urine 0 SEEN /hpf (<or=2+); Red Blood Cells-Urine 0 SEEN /hpf (0-5); Squamous Epithelial Cells - UA 0 SEEN /hpf (5-10)
[2023-09-18 07:03] LABS: Color, Urine Yellow (Yellow); Glucose, Dipstick Normal (Normal); Ketone-Dipstick Negative (Negative); Leukocyte Esterase-Dipstick 500 /ul (Negative); Nitrite-Dipstick Negative (Negative); Occult Blood-Urine 150 /ul (Negative); Protein-Dipstick 500 mg/dl (Negative); Specific Gravity, Urine 1.015 (1.002-1.030); Urine Bilirubin Dipstick Negative (Negative); Urine Clarity Cloudy (Clear); Urine Urobilinogen Normal (Normal)
[2023-09-18 07:15] LABS: White Blood Cells >100 SEEN /hpf (0-5)
[2023-09-18 07:22] LABS: Anisocytosis RARE; Platelet Estimate MKD DEC (ADEQ)
--- NOTE | 2023-09-18 08:10 | CASEMGMT ---
Social Work- Pt has directives in chart naming Castro, spouse, as primary agent and Kiet, son, as secondary. MIKKI Cedeño
[2023-09-18] MEDS: Sertraline 50 MG Tablet PO (08:39)
[2023-09-18] MEDS: Pramipexole Di-HCl 0.5 MG Tablet PO (08:39)
[2023-09-18] MEDS: Tacrolimus 0.5 MG Capsule PO (08:39)
[2023-09-18] MEDS: Pantoprazole Sodium 40 MG Tablet PO (08:39)
[2023-09-18] MEDS: Famotidine 20 MG Tablet PO (08:39)
[2023-09-18] MEDS: Cholecalciferol (VIT D3) 25 MCG TABLET (1,000 UNITS) PO (08:39)
[2023-09-18] MEDS: Ascorbic Acid 500 MG Tablet 1000 MG PO (08:39)
[2023-09-18] MEDS: Vitamin B Comp W-C Capsule 1 CAP PO (08:40)
[2023-09-18] MEDS: Insulin Glargine-YFGN 100 UNIT/ML Pen 12 UNIT SC (08:40)
[2023-09-18] MEDS: Carvedilol 6.25 MG Tablet PO (08:40)
[2023-09-18] MEDS: SEVELAMER CARBONATE 800 MG TABLET 1600 MG PO ×3 (08:40→17:18)
[2023-09-18] MEDS: Aspirin E.C. 81 MG Tablet PO (08:40)
[2023-09-18 09:11] LABS: Bedside Glucose 108 mg/dL (74-106)
--- NOTE | 2023-09-18 09:32 | PCM.CONS.R ---
Assessment & Plan Assessment/Plan (1) End stage renal disease on dialysis: PLAN: ESRD on dialysis, Saturday schedule. We will arrange for dialysis today. Discussed with dialysis staff. (2) Chronic anemia: PLAN: Anemia. In general she has pancytopenia. Gets high-dose long-acting SHAYE with dialysis. If she is still here by Saturday, I will add SHAYE as well. Frequent fall, no episodes of loss of consciousness, syncope, vertigo. Likely physical deconditioning. Will likely need rehab/retirement placement. HPI Consult Data Date of Consult: 09/18/23 HPI Narrative Reason for Consultation: esrd HPI Narrative: CHRISTINA KUO, is a 68 F who presents to the hospital after mechanical fall. Nephrology on consultation in view of ESRD. She has had several falls recently. Had a small subdural hematoma after recent fall. Was discharged home without any surgical intervention from [facility]. Came back with what looks like another fall. X-ray showed old healing ankle fracture. No other new fractures. Will likely need rehab placement/retirement placement. Currently denies any complaints. Has a left arm AV fistula for access. Goes to [facility] in [place], Saturday schedule. [facility] Medical History (Updated 09/18/23 @ 02:[address] Jag Everett, ) Diabetes Dialysis patient Sleep apnea Easy bruising Restless legs Difficulty swallowing Dietary restriction History of ulceration Shortness of breath on exertion CPAP (continuous positive airway pressure) dependence Influenza A Sepsis Acute dyspnea Pneumonia Anxiety Depression Hypothyroidism Irregular heart beat Hypertension DVT (deep venous thrombosis) Multiple falls Uses wheelchair History of renal dialysis Osteoporosis Cirrhosis Non-smoker ESRD (end stage renal disease) Pancytopenia Chronic renal failure, stage 5 Infection involving suture with abscess Wears glasses Wears dentures Cancer Insulin dependent diabetes mellitus Anemia Hx of Krueger's palsy Back pain Gastric reflux COPD (chronic obstructive pulmonary disease) History of edema History of echocardiogram (~01/22/20) History of stress test (~12/07/19) Cardiology follow-up encounter LIVER TRANSPLANT History of uterine cancer Hypertension Anemia in chronic kidney disease Home Medications ?Medication ?Instructions ?Recorded ?Last Taken ?Type ascorbic acid (vitamin C) 500 mg 1,000 mg PO DAILY supplement 02/20/15 07/03/23 History chewable tablet cholecalciferol (vitamin D3) 25 1,000 unit PO BID supplement 02/20/15 07/03/23 History mcg (1,000 unit) tablet tacrolimus 1 mg capsule, 0.5 mg PO BID REJECTION 09/10/19 07/04/23 History immediate-release (Prograf) vitamin B complex 1 tablet PO DAILY SUPPLEMENT 09/10/19 07/03/23 History ropinirole 1 mg tablet 1 mg PO DAILY restless legs 05/23/20 07/04/23 History ropinirole 2 mg tablet,extended 2 mg PO QHS restless legs 06/10/20 07/03/23 History release 24 hr sevelamer carbonate 800 mg tablet 1,600 mg PO TIDCM kidney disease 06/10/20 07/03/23 History (Renvela) nitroglycerin 0.4 mg sublingual 0.4 mg sublingual Q5M PRN 04/29/21 Unknown Rx tablet Cardiac/Chest Pain #30 tabs biotin 1 mg capsule 1 mg PO BID supplement 08/11/21 07/03/23 History sertraline 50 mg tablet (Zoloft) 50 mg PO DAILY mood 08/11/21 07/04/23 History albuterol sulfate 90 mcg/actuation 2 puff IH Q4H PRN PRN Sob &/Or 10/25/21 Unknown Rx aerosol inhaler Wheezing 30 days #8.6 grams apremilast 30 mg tablet (Otezla) 30 mg PO DAILY 09/08/22 07/03/23 History gabapentin 100 mg capsule 200 mg PO QHS 12/31/22 07/03/23 History levothyroxine 88 mcg tablet 88 mcg PO DAILY 12/31/22 07/04/23 History sucralfate 1 gram tablet (Carafate) 1 g PO BID #30 tabs 12/31/22 Unknown Rx trazodone 100 mg tablet 200 mg PO QHS 12/31/22 07/03/23 History aspirin 81 mg tablet,delayed 81 mg PO DAILY 01/28/23 06/30/23 History release (Adult Aspirin Regimen) omega 9-prc-zcv-fish oil 1,200 mg 1 cap PO DAILY SUPPLEMENT 01/28/23 06/30/23 History (144 mg-216 mg) capsule (Fish Oil) bisacodyl 10 mg rectal suppository 10 mg AK DAILY PRN constipation 02/12/23 07/03/23 Rx (Dulcolax (bisacodyl)) #30 ea acetaminophen 325 mg capsule 650 mg PO Q4H PRN fever or pain 04/15/23 Unknown History aluminum-magnesium hydroxide 225 30 ml PO Q4H PRN PRN GI distress 04/15/23 Unknown History mg-200 mg/5 mL oral suspension insulin lispro 100 unit/mL 10 unit subcut TIDCM 04/15/23 07/03/23 08:00 History subcutaneous pen (Humalog KwikPen 8 units (U-100) Insulin) melatonin 10 mg tablet 10 mg PO QHS 04/15/23 07/03/23 History midodrine 10 mg tablet 10 mg PO MOWEFR PRN hypotension 04/15/23 Unknown History torsemide 60 mg tablet 60 mg PO DAILY 04/15/23 07/03/23 History hydrocodone-acetaminophen 5-325mg 1 tab PO Q6H PRN PRN Pain Score 04/19/23 Unknown Rx 5mg-325mg 6-10 2 days #6 tabs dicyclomine 10 mg capsule 20 mg (2 x 10 mg) PO Q6H PRN PRN 06/02/23 Unknown Rx abdominal discomfort #30 CAPSULES carvedilol 12.5 mg tablet 6.25 mg PO BID 07/01/23 07/04/23 History doxycycline hyclate 100 mg capsule 100 mg PO BID 07/01/23 07/03/23 History insulin glargine-yfgn 100 unit/mL 18 unit subcut BID 07/01/23 07/03/23 History (3 mL) subcutaneous pen 9 unit nystatin 100,000 unit/gram topical 1 applic topical BID PRN PRN SKIN 07/01/23 Unknown History powder ([facility]) pantoprazole 40 mg tablet,delayed 40 mg PO BID 07/01/23 07/04/23 History release baclofen 5 mg tablet 5 mg PO QHS 09/17/23 Unknown History famotidine 20 mg tablet 20 mg PO Q12.TCU 09/17/23 Unknown History Allergy/AdvReac Type Severity Reaction Status Date / Time amlodipine (From Norvasc) Allergy Severe Hives Verified 09/17/23 16:53 ampicillin sodium (From Allergy Severe Hives Verified 09/17/23 16:53 Unasyn) [facility]one [facility] ([facility] Allergy Severe Hives Verified 09/17/23 16:53 cefadroxil (From Duricef) Allergy Severe Hives Verified 09/17/23 16:53 lisinopril Allergy Severe Swelling Verified 09/17/23 16:53 naproxen Allergy Severe Hives Verified 09/17/23 16:53 niacin (From Niaspan Allergy Severe Hives Verified 09/17/23 16:53 Extended-Release) sulbactam sodium (From Allergy Severe Hives Verified 09/17/23 16:53 Unasyn) Sulfa (Sulfonamide Allergy Severe Hives Verified 09/17/23 16:53 Antibiotics) tramadol Allergy Mild Nausea Verified 09/17/23 16:53 cephalexin (From Keflex) Allergy Vomiting Verified 09/17/23 16:53 omeprazole AdvReac Severe Other Verified 09/17/23 16:53 losartan AdvReac Swelling Verified 09/17/23 16:53 Family History Mother Diabetes Anemia Father Hypertension LUNG/RESPIRATORY DISEASE Surgical History History of esophagogastroduodenoscopy (EGD) History of coronary artery stent placement History of cardiac catheterization History of appendectomy S/P arteriovenous (AV) fistula creation (~06/16/20) History of cholecystectomy History of left salpingo-oophorectomy History of radical hysterectomy History of left knee surgery History of ventral hernia repair History of liver transplant Social History housing: apartment current occupational status: disabled Smoking Status: Never smoker substance use type: does not use ROS ROS Narrative Negative except above Physical Exam Narrative Alert awake oriented x 3 no obvious distress no pallor no icterus no JVD s1s2 no murmurs lungs clear abdomen soft no organomegaly no edema no cyanosis Lab / Micro Data 09/18/23 05:40 09/18/23 05:40 Labs: Laboratory Results - last 24 hr 09/17/23 21:06: WBC 3.9 L, RBC 3.22 L, Hgb 9.8 L, Hct 32.5 L, MCV 100.9 H, MCH 30.4, MCHC 30.2 L, RDW Std Deviation 72.6 H, RDW Coeff of Tami 19.7 H, Plt Count 82 L, MPV 10.5, Immature Gran % (Auto) 1.300 H, Neut % (Auto) 72.8 H, Lymph % (Auto) 15.0 L, [place] % (Auto) 7.3, Eos % (Auto) 3.1, Baso % (Auto) 0.5, Absolute Neuts (auto) 2.8, Absolute Lymphs (auto) 0.58 L, Nucleated RBC % 0, Differential Comment SCANNED, Polychromasia RARE, Hypochromasia 1+, Anisocytosis 1+, Crenated Cell RARE, Sodium 135 L, Potassium 5.2 H, Chloride 96 L, Carbon Dioxide 31.0, Anion Gap 8, BUN 33 H, Creatinine 5.53 H, Estim Creat Clear Calc 12.16, Est GFR (MDRD) Af Amer 10 L, Est GFR (MDRD) Non-Af 8 L, BUN/Creatinine Ratio 6.0 L, Glucose 235 H, Calcium 9.3 09/18/23 05:40: WBC 4.1 L, RBC 3.06 L, Hgb 9.3 L, Hct 30.8 L, MCV 100.7 H, MCH 30.4, MCHC 30.2 L, RDW Std Deviation 71.4 H, RDW Coeff of Tami 19.6 H, Plt Count 83 L, MPV 10.5, Immature Gran % (Auto) 0.700, Neut % (Auto) 71.1 H, Lymph % (Auto) 16.5 L, [place] % (Auto) 7.8, Eos % (Auto) 3.4, Baso % (Auto) 0.5, Absolute Neuts (auto) 2.9, Absolute Lymphs (auto) 0.68 L, Nucleated RBC % 0, Differential Comment , Platelet Estimate MKD DEC, Anisocytosis RARE, Sodium 132 L, Potassium 5.3 H, Chloride 96 L, Carbon Dioxide 27.0, Anion Gap 9, BUN 38 H, Creatinine 5.72 H, Estim Creat Clear Calc 11.57, Est GFR (MDRD) Af Amer 10 L, Est GFR (MDRD) Non-Af 8 L, BUN/Creatinine Ratio 6.6 L, Glucose 119 H, Calcium 9.1, Phosphorus 4.7, Magnesium 2.5, Total Bilirubin 0.80, AST 14 L, ALT 21, Alkaline Phosphatase 110, Total Protein 6.0 L, Albumin 2.5 L, Globulin 3.5, Albumin/Globulin Ratio 0.7 L, TSH 0.62 09/18/23 06:40: Urine Color Yellow, Urine Clarity Cloudy, Urine pH 8.0, Ur Specific [place] 1.015, Urine Protein 500 H, Urine Glucose (UA) Normal, Urine Ketones Negative, Urine Occult Blood 150 H, Urine Nitrite Negative, Urine Bilirubin Negative, Urine Urobilinogen Normal, Ur Leukocyte Esterase 500 H, Urine RBC 0 SEEN, Urine WBC >100 SEEN, Ur Squamous Epith Cells 0 SEEN, Urine Bacteria 0 SEEN, Urine Mucus 0 SEEN 09/18/23 08:30: POC Glucose 108 H Imaging Radiology Impression Ankle X-Ray 09/17/23 17:45 IMPRESSION: 1. Significant soft tissue swelling both medially and laterally. No soft tissue gas. No radiopaque foreign body. 2. Healed or healing distal fibular fracture with callus formation however fracture plane is not visible. 3. Diffuse osteopenia. 4. No acute fracture or dislocation noted. Electronically Signed: Virgilio Garcia MD at 18:21 EDT , Elbow X-Ray 09/17/23 17:45 IMPRESSION: 1. No evidence fracture, malalignment or focal bony or joint space abnormality. Electronically Signed: Virgilio Garcia MD at 18:25 EDT , Foot X-Ray 09/17/23 17:45 IMPRESSION: 1. No evidence of fracture dislocation or acute bony changes. 2. Osteophyte formation and midfoot. Small plantar spur. 3. Dorsal soft tissue swelling in the forefoot. Electronically Signed: Virgilio Garcia MD at 18:24 EDT , Shoulder X-Ray 09/17/23 17:45 IMPRESSION: 1. No fracture or dislocation involving the glenohumeral joint. 2. AC joint degenerative changes are present. Electronically Signed: Virgilio Garcia MD at 18:28 EDT , Brain CT 09/17/23 20:39 IMPRESSION: 1. Normal CT examination of the brain. 2. No intracranial evidence of acute traumatic injury. 3. No intracranial mass, hemorrhage or acute territorial infarct. 4. No fractures noted. 5. No radiographically significant sinus disease.. Electronically Signed: Virgilio Garcia MD at 21:26 EDT , Cervical Spine CT 09/17/23 20:39 IMPRESSION: 1. No evidence of acute cervical spinal fracture or spondylolisthesis. No acutely acquired canal stenosis. 2. Cervical spondylosis with disc changes at C5-6 and C6-7. No acute disc herniation, no foraminal stenosis. Electronically Signed: Virgilio Garcia MD at 21:28 EDT , Lower Extremity CT 09/18/23 03:55 IMPRESSION: 1. Mild subcutaneous edema. 2. Diffuse muscular atrophy. 3. Old healed fibular fracture. No acute fracture. Electronically Signed: Aravind Morin MD at 6:00 EDT ,
--- NOTE | 2023-09-18 10:13 | CASEMGMT ---
Addendum entered by Sherin Betancourt 09/18/23 11:22: Social Work- [facility] to accept referral; precert started. MIKKI Cedeño Original Note: Social Work- SW met with pt to discuss preference at placement. It was noted in prior documentation that pt requesting [facility]. Pt declined list of SNF, stating that she wants [facility] d/t ability to have in-house dialysis. Pt reports that she has had numerous falls recently and had two falls on Saturday prior to coming in to ED. JUDITH advised DCA of referral request. MIKKI Cedeño
--- NOTE | 2023-09-18 10:19 | CASEMGMT ---
Addendum entered by Julieta Marquis 09/18/23 11:22: [facility] has accepted and precert will be started. Julieta Marquis DC Planning Asst. Original Note: Discharge Planning Referral sent to [facility] via [employer]. Julieta Marquis DC Planning Asst.
[2023-09-18] MEDS: Torsemide 20 MG Tablet 60 MG PO (10:46)
[2023-09-18] MEDS: 0.9% Normal Saline 1,000 ML IV.SOLN. 1000 ML OPERA.SITE (11:31)
[2023-09-18] MEDS: PureFlow B 2K Dialysis Soln 1 BAG 6 BAG PF (11:31)
[2023-09-18] MEDS: 0.9% Saline Lock 10 ML Syringe IV (11:31)
--- NOTE | 2023-09-18 11:53 | CASEMGMT ---
Discharge Planning Therapy evals sent to [facility] via [employer]. Julieta Marquis DC Planning Asst.
[2023-09-18 13:26] LABS: Bedside Glucose 102 mg/dL (74-106)
--- NOTE | 2023-09-18 15:48 | CASEMGMT ---
Met with patient to complete BOYD form. BOYD form explained to patient who voiced understanding and signed form. Original form placed in pt?s chart and copy provided to patient. Julieta Marquis, Discharge Planning Asst
--- NOTE | 2023-09-18 16:00 | CASEMGMT ---
Discharge Planning [facility] has obtained auth to admit. SW updated. Julieta Marquis DC Planning Asst.
--- NOTE | 2023-09-18 16:22 | PCM.TXEXTCAR ---
Diet Diet Order/Speech Therapy: 09/17/23 23:35 Diet: Renal - General Food consistency:: Regular Liquid Consistency:: Regular/Thin Dietary Modifications:: Consistent Carbohydrate Is pt able to select menu?: Yes Routine Orders/Code Status Routine Lab Work: - (Fingerstick blood sugars AC nightly, Humalog subcu per sliding scale: 200-250: 5 units, 251-300: 10 units, 301-350: 12 units) Code Status: Full Code Therapies Weight Bearing: Full weight bearing Physical Therapy: Eval and Treat Occupational Therapy: Eval and Treat Problem/Diagnosis (1) End stage renal disease on dialysis: Status: Chronic Code(s): N18.6 - End stage renal disease; Z99.2 - Dependence on renal dialysis (2) Chronic anemia: Status: Chronic Code(s): D64.9 - Anemia, unspecified (3) Contusion of right shoulder: Status: Acute Code(s): S40.011A - Contusion of right shoulder, initial encounter (4) Contusion of right knee: Status: Acute Code(s): S80.01XA - Contusion of right knee, initial encounter (5) Weakness: Status: Acute Code(s): R53.1 - Weakness (6) Ankle sprain: Status: Acute Code(s): S93.409A - Sprain of unspecified ligament of unspecified ankle, initial encounter (7) Diabetes mellitus type 2 in obese: Status: Chronic Code(s): E11.9 - Type 2 diabetes mellitus without complications; E66.9 - Obesity, unspecified Allergies/Procedures Done in Hospital Allergies amlodipine (From Norvasc) Allergy (Severe, Verified 09/17/23 16:53) Hives ampicillin sodium (From Unasyn) Allergy (Severe, Verified 09/17/23 16:53) Hives buspirone HCl (From BuSpar) Allergy (Severe, Verified 09/17/23 16:53) Hives cefadroxil (From Duricef) Allergy (Severe, Verified 09/17/23 16:53) Hives lisinopril Allergy (Severe, Verified 09/17/23 16:53) Swelling naproxen Allergy (Severe, Verified 09/17/23 16:53) Hives niacin (From Niaspan Extended-Release) Allergy (Severe, Verified 09/17/23 16:53) Hives sulbactam sodium (From Unasyn) Allergy (Severe, Verified 09/17/23 16:53) Hives Sulfa (Sulfonamide Antibiotics) Allergy (Severe, Verified 09/17/23 16:53) Hives tramadol Allergy (Mild, Verified 09/17/23 16:53) Nausea cephalexin (From Keflex) Allergy (Verified 09/17/23 16:53) Vomiting omeprazole Adverse Reaction (Severe, Verified 09/17/23 16:53) Other stage 3 kidney failure UNABLE TO TAKE DUE TO LIVER TRANSPLANT losartan Adverse Reaction (Verified 09/17/23 16:53) Swelling Procedures: None Type of Care/Length of Stay Estimated LOS: Convalescent Care Less Than 30 days Type of Care Needed: Skilled Rehab Potential: Good Prognosis: Good Additional Orders/Day of Discharge H&P will serve as current which was dated: 09/17/23 Day of Discharge: 09/18/23 Discharge Plan Admission Admit Date/Time: 09/17/23 23:05 Primary Reason for Your Visit: Debility Attending Provider: Don Duval Primary Care Provider: Velia Archuleta Consulting Providers: Barrett Strickland; Jag Everett Discharge Orders/Prescriptions Prescriptions: New hydrocodone-acetaminophen 5-325 mg Tablet 1 tab PO Q6H PRN PRN (Reason: Pain Score 6-10) 2 Days Qty: 10 0RF insulin lispro [Humalog KwikPen Insulin] 100 unit/mL Insulin Pen 6 unit subcut TIDCM Qty: 0 0RF insulin glargine-yfgn 100 unit/mL (3 mL) Insulin Pen 12 unit subcut BID Qty: 0 0RF menthol-zinc oxide [Calmoseptine] 0.44-20.6 % Ointment 1 applic topical BID Qty: 0 0RF Protocol: *Topical Application Instructions APPLICATION INSTRUCTIONS: buttocks Continued bisacodyl [Dulcolax (bisacodyl)] 10 mg suppository 10 mg CO DAILY PRN (Reason: constipation) Qty: 30 0RF ascorbic acid (vitamin C) 500 MG tablet,chewable 1,000 mg PO DAILY Patient Comments: supplement cholecalciferol (vitamin D3) 1,000 UNIT tablet 1,000 unit PO BID Patient Comments: bone health ropinirole 1 mg tablet 1 mg PO DAILY tacrolimus [Prograf] 1 MG capsule 0.5 mg PO BID vitamin B complex 1 EACH tablet 1 tablet PO DAILY sevelamer carbonate [Renvela] 800 MG tablet 1,600 mg PO TIDCM ropinirole 2 MG tablet extended release 24 hr 2 mg PO QHS nitroglycerin 0.4 mg Tablet, Sublingual 0.4 mg sublingual Q5M PRN (Reason: Cardiac/Chest Pain) Qty: 30 0RF sertraline [Zoloft] 50 MG tablet 50 mg PO DAILY Patient Comments: depression biotin 1 mg Capsule 1 mg PO BID albuterol sulfate 1 PUFF inhaler 2 puff IH Q4H PRN PRN (Reason: Sob &/Or Wheezing) 30 Days Qty: 8.6 0RF Otezla 30 mg tablet 30 mg PO DAILY acetaminophen 325 mg capsule 650 mg PO Q4H PRN (Reason: fever or pain) aluminum-magnesium hydroxide 225-200 mg/5 mL suspension 30 ml PO Q4H PRN PRN (Reason: GI distress) melatonin 10 mg tablet 10 mg PO QHS midodrine 10 mg tablet 10 mg PO MOWEFR PRN (Reason: hypotension) Patient Comments: ON HOLD FOR LAST 2-3 WEEKS Rx Instructions: afternoon torsemide 60 mg tablet 60 mg PO DAILY levothyroxine 88 mcg tablet 88 mcg PO DAILY trazodone 100 mg tablet 200 mg PO QHS gabapentin 100 mg capsule 200 mg PO QHS Patient Comments: TAKE 2 CAPSULES BY MOUTH AT BEDTIME sucralfate [Carafate] 1 gram tablet 1 g PO BID Qty: 30 0RF aspirin [Adult Aspirin Regimen] 81 mg tablet,delayed release (DR/EC) 81 mg PO DAILY carvedilol 12.5 mg tablet 6.25 mg PO BID pantoprazole 40 mg tablet,delayed release (DR/EC) 40 mg PO BID nystatin [Nyamyc] 100,000 unit/gram Powder 1 applic topical BID PRN PRN (Reason: SKIN) Protocol: *Topical Application Instructions APPLICATION INSTRUCTIONS: apply to abdominal folds famotidine 20 mg tablet 20 mg PO Q12.TCU baclofen 5 mg tablet 5 mg PO QHS dicyclomine 10 mg capsule 20 mg PO Q6H PRN PRN (Reason: abdominal discomfort) Qty: 30 0RF Discontinued insulin lispro [Humalog KwikPen Insulin] 100 unit/mL insulin pen 10 unit subcut TIDCM hydrocodone-acetaminophen 5-325 mg Tablet 1 tab PO Q6H PRN PRN (Reason: Pain Score 6-10) 2 Days Qty: 6 0RF omega 5-akx-xjg-fish oil [Fish Oil] 1,200 (144-216) mg capsule 1 cap PO DAILY doxycycline hyclate 100 mg capsule 100 mg PO BID insulin glargine-yfgn 100 unit/mL (3 mL) Insulin Pen 18 unit subcut BID Referrals / Follow Up: Velia Archuleta MD [Primary Care Provider] - Disposition Disposition (needs filled in before D/C Order can be placed): Nursing Home Facility (3) Contusion of right shoulder Qualifiers: Encounter type: initial encounter Qualified Code(s): S40.011A - Contusion of right shoulder, initial encounter (4) Contusion of right knee Qualifiers: Encounter type: initial encounter Qualified Code(s): S80.01XA - Contusion of right knee, initial encounter
--- NOTE | 2023-09-18 16:31 | CASEMGMT ---
Social Work- Precert has been obtained.? Physician updated and pt is ready for discharge today.? Pt advised and agreeable. Green sheet, HENS [id number], and transportation forms on chart. MIKKI Cedeño
--- NOTE | 2023-09-18 16:46 | CASEMGMT ---
Social Work PASRR completed in [facility] for admission to [facility]. MIKKI Santos
--- NOTE | 2023-09-18 16:48 | PCM.DC.SUM ---
Providers Date of Admission: 09/17/23 Date of Discharge: 09/18/23 Primary Care Physician: Dr. Velia Archuleta MD Consultations 09/17/23 23:35 Consult: Nephrology Routine Consulting Provider: Barrett Strickland Reason for Consult: ESRD on HD (M-W-F) EMERGENT Consult: No MD Notified: Yes Date Notified: 09/18/23 Time Notified: 06:42 Method of Notification: Answering Service Reason For Visit: MECHANICAL FALL WITH [id number] GENERALIZED Diagnosis Discharge Diagnosis (1) End stage renal disease on dialysis: Status: Chronic Code(s): N18.6 - End stage renal disease; Z99.2 - Dependence on renal dialysis (2) Chronic anemia: Status: Chronic Code(s): D64.9 - Anemia, unspecified (3) Contusion of right shoulder: Status: Acute Code(s): S40.011A - Contusion of right shoulder, initial encounter Qualifiers: Encounter type: initial encounter Qualified Code(s): S40.011A - Contusion of right shoulder, initial encounter (4) Contusion of right knee: Status: Acute Code(s): S80.01XA - Contusion of right knee, initial encounter Qualifiers: Encounter type: initial encounter Qualified Code(s): S80.01XA - Contusion of right knee, initial encounter (5) Weakness: Status: Acute Code(s): R53.1 - Weakness (6) Ankle sprain: Status: Acute Code(s): S93.409A - Sprain of unspecified ligament of unspecified ankle, initial encounter (7) Diabetes mellitus type 2 in obese: Status: Chronic Code(s): E11.9 - Type 2 diabetes mellitus without complications; E66.9 - Obesity, unspecified (8) S/P liver transplant: Status: Chronic Code(s): Z94.4 - Liver transplant status Plan 1. Acute generalized debility #2 contusion of the right shoulder #3 end-stage renal disease requiring dialysis #4 contusion of the right knee #5 right ankle sprain #6 type 2 diabetes #7 history of liver transplant Medications at Discharge Home Medications ascorbic acid (vitamin C) 500 mg chewable tablet 1,000 mg PO DAILY supplement 02/20/15 cholecalciferol (vitamin D3) 25 mcg (1,000 unit) tablet 1,000 unit PO BID supplement 02/20/15 tacrolimus 1 mg capsule, immediate-release (Prograf) 0.5 mg PO BID REJECTION 09/10/19 vitamin B complex 1 tablet PO DAILY SUPPLEMENT 09/10/19 ropinirole 1 mg tablet 1 mg PO DAILY restless legs 05/23/20 ropinirole 2 mg tablet,extended release 24 hr 2 mg PO QHS restless legs 06/10/20 sevelamer carbonate 800 mg tablet (Renvela) 1,600 mg PO TIDCM kidney disease 06/10/20 nitroglycerin 0.4 mg sublingual tablet 0.4 mg sublingual Q5M PRN Cardiac/Chest Pain #30 tabs 04/29/21 biotin 1 mg capsule 1 mg PO BID supplement 08/11/21 sertraline 50 mg tablet (Zoloft) 50 mg PO DAILY mood 08/11/21 albuterol sulfate 90 mcg/actuation aerosol inhaler 2 puff IH Q4H PRN PRN Sob &/Or Wheezing 30 days #8.6 grams 10/25/21 apremilast 30 mg tablet (Otezla) 30 mg PO DAILY 09/08/22 gabapentin 100 mg capsule 200 mg PO QHS 12/31/22 levothyroxine 88 mcg tablet 88 mcg PO DAILY 12/31/22 sucralfate 1 gram tablet (Carafate) 1 g PO BID #30 tabs 12/31/22 trazodone 100 mg tablet 200 mg PO QHS 12/31/22 aspirin 81 mg tablet,delayed release (Adult Aspirin Regimen) 81 mg PO DAILY 01/28/23 bisacodyl 10 mg rectal suppository (Dulcolax (bisacodyl)) 10 mg TN DAILY PRN constipation #30 ea 02/12/23 acetaminophen 325 mg capsule 650 mg PO Q4H PRN fever or pain 04/15/23 aluminum-magnesium hydroxide 225 mg-200 mg/5 mL oral suspension 30 ml PO Q4H PRN PRN GI distress 04/15/23 melatonin 10 mg tablet 10 mg PO QHS 04/15/23 midodrine 10 mg tablet 10 mg PO MOWEFR PRN hypotension 04/15/23 torsemide 60 mg tablet 60 mg PO DAILY 04/15/23 carvedilol 12.5 mg tablet 6.25 mg PO BID 07/01/23 nystatin 100,000 unit/gram topical powder (Nyamyc) 1 applic topical BID PRN PRN SKIN 07/01/23 pantoprazole 40 mg tablet,delayed release 40 mg PO BID 07/01/23 baclofen 5 mg tablet 5 mg PO QHS 09/17/23 famotidine 20 mg tablet 20 mg PO Q12.TCU 09/17/23 dicyclomine 10 mg capsule 20 mg (2 x 10 mg) PO Q6H PRN PRN abdominal discomfort #30 CAPSULES 09/18/23 hydrocodone-acetaminophen 5-325mg 5mg-325mg 1 tab PO Q6H PRN PRN Pain Score 6-10 2 days #10 tabs 09/18/23 insulin glargine-yfgn 100 unit/mL (3 mL) subcutaneous pen 12 unit (0.12 mL) subcut BID #0 mL 09/18/23 insulin lispro 100 unit/mL subcutaneous pen (Humalog KwikPen (U-100) Insulin) 6 unit (0.06 mL) subcut TIDCM #0 mL 09/18/23 menthol 0.44 %-zinc oxide 20.6 % topical ointment (Calmoseptine) 1 applic topical BID #0 grams 09/18/23 Hospital Course Operations None Procedures Dialysis Summary of Care Provided Minutes Spent on Discharge: 32 Hospital Course: This 68-year-old white female was seen in the emergency room at [facility] after sustaining mechanical fall at home and complaining of generalized weakness. Imaging studies were performed in the ER which did not show any evidence of dislocation or fracture, patient was placed in observation status on [facility] 3 and seen by PT and OT. He was seen in consultation by nephrology and underwent dialysis during her hospital stay. Patient agreed to go to an extended care facility for short-term rehab services, we received approval from her insurance carrier on 09/18/2023. Patient was seen on 09/18/2023: On examination she appeared in good health and spirits, she does not appear to be in any distress. Vital signs as documented. Skin warm and dry and without overt rashes. Neck without JVD, thyroid appears normal, trachea is midline, neck is supple. Lungs clear, normal air movement was noted. Heart exam notable for regular rhythm, normal sounds and absence of murmurs, rubs or gallops. Abdomen unremarkable and without evidence of organomegaly, masses, or abdominal aortic enlargement, bowel sounds are present in all 4 quadrants, no abdominal tenderness was noted. Extremities nonedematous, no cyanosis was noted, no clubbing was noted. Neuro: Cranial nerves II through XII are grossly intact, no focal motor deficits were noted, sensation to light touch and pinprick is intact, motor exam 5/5 throughout. Psych: Patient is alert and oriented x3, she does not appear anxious or depressed, she does not appear agitated. Patient appears stable for discharge on 09/18/2023 to an [facility] for inpatient rehab services. Weight / BMI Weight Weight: 103.9 kg Body Mass Index (BMI) 38.1 ABG / Lab / Microbiology Data 09/18/23 05:40 09/18/23 05:40 Laboratory: Laboratory Results - last 24 hr 09/17/23 21:06: WBC 3.9 L, RBC 3.22 L, Hgb 9.8 L, Hct 32.5 L, MCV 100.9 H, MCH 30.4, MCHC 30.2 L, RDW Std Deviation 72.6 H, RDW Coeff of Tami 19.7 H, Plt Count 82 L, MPV 10.5, Immature Gran % (Auto) 1.300 H, Neut % (Auto) 72.8 H, Lymph % (Auto) 15.0 L, [place] % (Auto) 7.3, Eos % (Auto) 3.1, Baso % (Auto) 0.5, Absolute Neuts (auto) 2.8, Absolute Lymphs (auto) 0.58 L, Nucleated RBC % 0, Differential Comment SCANNED, Polychromasia RARE, Hypochromasia 1+, Anisocytosis 1+, Crenated Cell RARE, Sodium 135 L, Potassium 5.2 H, Chloride 96 L, Carbon Dioxide 31.0, Anion Gap 8, BUN 33 H, Creatinine 5.53 H, Estim Creat Clear Calc 12.16, Est GFR (MDRD) Af Amer 10 L, Est GFR (MDRD) Non-Af 8 L, BUN/Creatinine Ratio 6.0 L, Glucose 235 H, Calcium 9.3 09/18/23 05:40: WBC 4.1 L, RBC 3.06 L, Hgb 9.3 L, Hct 30.8 L, MCV 100.7 H, MCH 30.4, MCHC 30.2 L, RDW Std Deviation 71.4 H, RDW Coeff of Tami 19.6 H, Plt Count 83 L, MPV 10.5, Immature Gran % (Auto) 0.700, Neut % (Auto) 71.1 H, Lymph % (Auto) 16.5 L, [place] % (Auto) 7.8, Eos % (Auto) 3.4, Baso % (Auto) 0.5, Absolute Neuts (auto) 2.9, Absolute Lymphs (auto) 0.68 L, Nucleated RBC % 0, Differential Comment , Platelet Estimate MKD DEC, Anisocytosis RARE, Sodium 132 L, Potassium 5.3 H, Chloride 96 L, Carbon Dioxide 27.0, Anion Gap 9, BUN 38 H, Creatinine 5.72 H, Estim Creat Clear Calc 11.57, Est GFR (MDRD) Af Amer 10 L, Est GFR (MDRD) Non-Af 8 L, BUN/Creatinine Ratio 6.6 L, Glucose 119 H, Calcium 9.1, Phosphorus 4.7, Magnesium 2.5, Total Bilirubin 0.80, AST 14 L, ALT 21, Alkaline Phosphatase 110, Total Protein 6.0 L, Albumin 2.5 L, Globulin 3.5, Albumin/Globulin Ratio 0.7 L, TSH 0.62 09/18/23 06:40: Urine Color Yellow, Urine Clarity Cloudy, Urine pH 8.0, Ur Specific [place] 1.015, Urine Protein 500 H, Urine Glucose (UA) Normal, Urine Ketones Negative, Urine Occult Blood 150 H, Urine Nitrite Negative, Urine Bilirubin Negative, Urine Urobilinogen Normal, Ur Leukocyte Esterase 500 H, Urine RBC 0 SEEN, Urine WBC >100 SEEN, Ur Squamous Epith Cells 0 SEEN, Urine Bacteria 0 SEEN, Urine Mucus 0 SEEN 09/18/23 08:30: POC Glucose 108 H 09/18/23 13:06: POC Glucose 102 Radiography Diagnostic Testing: Radiology Impression Ankle X-Ray 09/17/23 17:45 IMPRESSION: 1. Significant soft tissue swelling both medially and laterally. No soft tissue gas. No radiopaque foreign body. 2. Healed or healing distal fibular fracture with callus formation however fracture plane is not visible. 3. Diffuse osteopenia. 4. No acute fracture or dislocation noted. Electronically Signed: Virgilio Garcia MD at 18:21 EDT , Elbow X-Ray 09/17/23 17:45 IMPRESSION: 1. No evidence fracture, malalignment or focal bony or joint space abnormality. Electronically Signed: Virgilio Garcia MD at 18:25 EDT Reading Location ID and State: [facility] / [place] Tel , Service support , Foot X-Ray 09/17/23 17:45 IMPRESSION: 1. No evidence of fracture dislocation or acute bony changes. 2. Osteophyte formation and midfoot. Small plantar spur. 3. Dorsal soft tissue swelling in the forefoot. Electronically Signed: Virgliio Garcia MD at 18:24 EDT Reading Location ID and State: [facility] / [place] Tel , Service support , Shoulder X-Ray 09/17/23 17:45 IMPRESSION: 1. No fracture or dislocation involving the glenohumeral joint. 2. AC joint degenerative changes are present. Electronically Signed: Virgilio Garcia MD at 18:28 EDT , Brain CT 09/17/23 20:39 IMPRESSION: 1. Normal CT examination of the brain. 2. No intracranial evidence of acute traumatic injury. 3. No intracranial mass, hemorrhage or acute territorial infarct. 4. No fractures noted. 5. No radiographically significant sinus disease.. Electronically Signed: Virgilio Garcia MD at 21:26 EDT , Cervical Spine CT 09/17/23 20:39 IMPRESSION: 1. No evidence of acute cervical spinal fracture or spondylolisthesis. No acutely acquired canal stenosis. 2. Cervical spondylosis with disc changes at C5-6 and C6-7. No acute disc herniation, no foraminal stenosis. Electronically Signed: Virgilio Garcia MD at 21:28 EDT , Lower Extremity CT 09/18/23 03:55 IMPRESSION: 1. Mild subcutaneous edema. 2. Diffuse muscular atrophy. 3. Old healed fibular fracture. No acute fracture. Electronically Signed: Aravind Morin MD at 6:00 EDT , Meaningful Use Info Meaningful Use Meaningful Use Diagnoses (Choose all that apply): None applicable Ischemic Stroke Statin Dosing Therapy Reference: STATIN DOSE THERAPY REFERENCE: * Patients > 75 years receive moderate or high dose statin therapy. * Patients 75 years or YOUNGER should receive HIGH intensity statin dose unless contraindicated. You will be required to document reason for non-treatment if statin daily dose does not meet guidelines. HIGH DOSE STATIN THERAPY DAILY Atorvastatin > than or = to 40 mg Rosuvastatin > than or = to 20 mg Amlodipine + Atorvastatin > than or = to 2.5/40 mg Ezetimibe + Simvastatin 10/80 mg Simvastatin 80mg Discharge Plan Admission Admit Date/Time: 09/17/23 23:05 Primary Reason for Your Visit: Debility Attending Provider: Don Duval Primary Care Provider: Velia Archuleta Consulting Providers: Barrett Strickland; Jag Everett Discharge Orders/Prescriptions Prescriptions: New hydrocodone-acetaminophen 5-325 mg Tablet 1 tab PO Q6H PRN PRN (Reason: Pain Score 6-10) 2 Days Qty: 10 0RF insulin lispro [Humalog KwikPen Insulin] 100 unit/mL Insulin Pen 6 unit subcut TIDCM Qty: 0 0RF insulin glargine-yfgn 100 unit/mL (3 mL) Insulin Pen 12 unit subcut BID Qty: 0 0RF menthol-zinc oxide [Calmoseptine] 0.44-20.6 % Ointment 1 applic topical BID Qty: 0 0RF Protocol: *Topical Application Instructions APPLICATION INSTRUCTIONS: buttocks Continued bisacodyl [Dulcolax (bisacodyl)] 10 mg suppository 10 mg TN DAILY PRN (Reason: constipation) Qty: 30 0RF ascorbic acid (vitamin C) 500 MG tablet,chewable 1,000 mg PO DAILY Patient Comments: supplement cholecalciferol (vitamin D3) 1,000 UNIT tablet 1,000 unit PO BID Patient Comments: bone health ropinirole 1 mg tablet 1 mg PO DAILY tacrolimus [Prograf] 1 MG capsule 0.5 mg PO BID vitamin B complex 1 EACH tablet 1 tablet PO DAILY sevelamer carbonate [Renvela] 800 MG tablet 1,600 mg PO TIDCM ropinirole 2 MG tablet extended release 24 hr 2 mg PO QHS nitroglycerin 0.4 mg Tablet, Sublingual 0.4 mg sublingual Q5M PRN (Reason: Cardiac/Chest Pain) Qty: 30 0RF sertraline [Zoloft] 50 MG tablet 50 mg PO DAILY Patient Comments: depression biotin 1 mg Capsule 1 mg PO BID albuterol sulfate 1 PUFF inhaler 2 puff IH Q4H PRN PRN (Reason: Sob &/Or Wheezing) 30 Days Qty: 8.6 0RF Otezla 30 mg tablet 30 mg PO DAILY acetaminophen 325 mg capsule 650 mg PO Q4H PRN (Reason: fever or pain) aluminum-magnesium hydroxide 225-200 mg/5 mL suspension 30 ml PO Q4H PRN PRN (Reason: GI distress) melatonin 10 mg tablet 10 mg PO QHS midodrine 10 mg tablet 10 mg PO MOWEFR PRN (Reason: hypotension) Patient Comments: ON HOLD FOR LAST 2-3 WEEKS Rx Instructions: afternoon torsemide 60 mg tablet 60 mg PO DAILY levothyroxine 88 mcg tablet 88 mcg PO DAILY trazodone 100 mg tablet 200 mg PO QHS gabapentin 100 mg capsule 200 mg PO QHS Patient Comments: TAKE 2 CAPSULES BY MOUTH AT BEDTIME sucralfate [Carafate] 1 gram tablet 1 g PO BID Qty: 30 0RF aspirin [Adult Aspirin Regimen] 81 mg tablet,delayed release (DR/EC) 81 mg PO DAILY carvedilol 12.5 mg tablet 6.25 mg PO BID pantoprazole 40 mg tablet,delayed release (DR/EC) 40 mg PO BID nystatin [Nyamyc] 100,000 unit/gram Powder 1 applic topical BID PRN PRN (Reason: SKIN) Protocol: *Topical Application Instructions APPLICATION INSTRUCTIONS: apply to abdominal folds famotidine 20 mg tablet 20 mg PO Q12.TCU baclofen 5 mg tablet 5 mg PO QHS dicyclomine 10 mg capsule 20 mg PO Q6H PRN PRN (Reason: abdominal discomfort) Qty: 30 0RF Discontinued insulin lispro [Humalog KwikPen Insulin] 100 unit/mL insulin pen 10 unit subcut TIDCM hydrocodone-acetaminophen 5-325 mg Tablet 1 tab PO Q6H PRN PRN (Reason: Pain Score 6-10) 2 Days Qty: 6 0RF omega 1-der-tzy-fish oil [Fish Oil] 1,200 (144-216) mg capsule 1 cap PO DAILY doxycycline hyclate 100 mg capsule 100 mg PO BID insulin glargine-yfgn 100 unit/mL (3 mL) Insulin Pen 18 unit subcut BID Referrals / Follow Up: Velia Archuleta MD [Primary Care Provider] - Disposition Disposition (needs filled in before D/C Order can be placed): [facility] Facility Charges/Coding Visit Charges Inpatient E&M: 55078 Disch Hosp >30min
[2023-09-18] MEDS: Insulin Lispro 100 UNIT/ML INSULN.PEN 6 UNIT SC (17:18)
[2023-09-18 17:24] LABS: Bedside Glucose 175 mg/dL (74-106)
== END 2023-09-18 18:35 | disposition skilled nursing facility (03) ==
LOC: ED 20:26 → MS3 23:14
PROVIDERS: Admitting Provider Internal Medicine; Emergency Provider Student in an Organized Health Care Education/Training Program; PCP Internal Medicine; Visit Provider Internal Medicine
DX: S09.90XA Unspecified injury of head, initial encounter (principal); I13.2 Hypertensive heart and chronic kidney disease with heart failure and with stage 5 chronic kidney disease, or end stage renal disease; N18.6 End stage renal disease; Z94.4 Liver transplant status; I50.32 Chronic diastolic (congestive) heart failure; J44.9 Chronic obstructive pulmonary disease, unspecified; E11.22 Type 2 diabetes mellitus with diabetic chronic kidney disease; Z79.4 Long term (current) use of insulin; S40.011A Contusion of right shoulder, initial encounter; W19.XXXA Unspecified fall, initial encounter; R53.81 Other malaise; E78.5 Hyperlipidemia, unspecified; S80.01XA Contusion of right knee, initial encounter; Z99.2 Dependence on renal dialysis; S16.1XXA Strain of muscle, fascia and tendon at neck level, initial encounter; R53.1 Weakness; I25.10 Atherosclerotic heart disease of native coronary artery without angina pectoris; Z86.718 Personal history of other venous thrombosis and embolism; E66.9 Obesity, unspecified; Z79.890 Hormone replacement therapy; S93.401A Sprain of unspecified ligament of right ankle, initial encounter; Z68.39 Body mass index [BMI] 39.0-39.9, adult; Z79.899 Other long term (current) drug therapy; K21.9 Gastro-esophageal reflux disease without esophagitis; D63.1 Anemia in chronic kidney disease; Y92.009 Unspecified place in unspecified non-institutional (private) residence as the place of occurrence of the external cause
CPT/HCPCS: 36415; 70450; 72125; 73030; 73080; 73610; 73630; 73700; 80048; 80053; 81001; 82962; 83735; 84100; 84443; 85025; 90937; 94668; 96374; 97162; 97166; 97802; 99221; 99284; J7030; A4216; G0257; G0378

== ENCOUNTER 2023-09-26 00:45 | Emergency (ER) | payer MEDICARE, MEDICAID, SELFPAY ==
[2023-09-26 00:46] VITALS: BP 137/49; PULSE 94; RESP 18; TEMP 36.9; O2SAT 98; BMI 38.9
--- NOTE | 2023-09-26 00:55 | CT_ITS ---
STUDY: CT BRAIN WITHOUT CONTRAST REASON FOR EXAM: Female, 68 years old. Headache status post fall RADIATION DOSAGE (If Supplied By Facility): CTDIvol = ( 44.99 ) mGy, DLP = ( 812.98 ) mGycm TECHNIQUE: Transaxial CT imaging of the brain was performed without administration of intravenous contrast material. Individualized dose optimization techniques were used for this CT. COMPARISON: No relevant priors. FINDINGS: Soft tissue swelling of the high posterior right occipital scalp. No underlying skull fracture.. There is mild cerebral atrophy with widening of the extra-axial spaces and ventricular dilatation. There is mild bilateral periventricular and subcortical white matter hypoattenuation which is symmetric in distribution. Normal basal ganglia and thalami. Normal brainstem. Normal cerebellum. There is no intracranial hemorrhage. There are no findings of an acute ischemic infarction. There is mild mucoperiosteal thickening of the paranasal sinuses. . CT/Brain/Head without Contrast IMPRESSION: 1. High posterior right occipital scalp hematoma with no underlying fracture and no acute intracranial abnormality. 2. Mild bilateral periventricular and subcortical white matter chronic small vessel disease with age appropriate cerebral atrophy. 3. Mild chronic paranasal sinus disease Electronically Signed: Thomas Diaz MD at 1:32 EDT ,
--- NOTE | 2023-09-26 00:56 | ED.VIS.FALL ---
HPI HPI - Fall History of Present Illness Chief Complaint: Fall Informant: patient Narrative Narrative: Patient presents from [facility] after fall. Patient states he was try to sit up in bed when she fell and hit the back of her head. She is currently at [facility] recovering from a subdural hemorrhage that she sustained in August. Patient states that she fell at 12:10 AM and presents here at nearly 1:00 for evaluation. EMS was told that she fell at 6:30 PM last evening. Patient denies any neck pain. She denies any other injuries from the fall. She takes baby aspirin daily. [facility] Medical History Ankle sprain Contusion of right shoulder Contusion of right knee Cervical strain, acute History of subdural hematoma (post traumatic) Closed head injury Generalized weakness Ambulatory dysfunction Diabetes Dialysis patient Sleep apnea Easy bruising Restless legs Difficulty swallowing Dietary restriction History of ulceration Shortness of breath on exertion CPAP (continuous positive airway pressure) dependence Influenza A Sepsis Acute dyspnea Pneumonia Anxiety Depression Hypothyroidism Irregular heart beat Hypertension DVT (deep venous thrombosis) Multiple falls Uses wheelchair History of renal dialysis Osteoporosis Cirrhosis Non-smoker ESRD (end stage renal disease) Pancytopenia Chronic renal failure, stage 5 Infection involving suture with abscess Wears glasses Wears dentures Cancer Insulin dependent diabetes mellitus Anemia Hx of Krueger's palsy Back pain Gastric reflux COPD (chronic obstructive pulmonary disease) History of edema History of echocardiogram (~01/22/20) History of stress test (~12/07/19) Cardiology follow-up encounter [facility] [employer] History of uterine cancer Hypertension Anemia in chronic kidney disease Home Medications ?Medication ?Instructions ?Recorded ?Last Taken ?Type ascorbic acid (vitamin C) 500 mg 1,000 mg PO DAILY supplement 02/20/15 07/03/23 History chewable tablet cholecalciferol (vitamin D3) 25 1,000 unit PO BID supplement 02/20/15 07/03/23 History mcg (1,000 unit) tablet tacrolimus 1 mg capsule, 0.5 mg PO BID REJECTION 09/10/19 07/04/23 History immediate-release (Prograf) vitamin B complex 1 tablet PO DAILY SUPPLEMENT 09/10/19 07/03/23 History ropinirole 1 mg tablet 1 mg PO DAILY restless legs 05/23/20 07/04/23 History ropinirole 2 mg tablet,extended 2 mg PO QHS restless legs 06/10/20 07/03/23 History release 24 hr sevelamer carbonate 800 mg tablet 1,600 mg PO TIDCM kidney disease 06/10/20 07/03/23 History (Renvela) nitroglycerin 0.4 mg sublingual 0.4 mg sublingual Q5M PRN 04/29/21 Unknown Rx tablet Cardiac/Chest Pain #30 tabs biotin 1 mg capsule 1 mg PO BID supplement 08/11/21 07/03/23 History sertraline 50 mg tablet (Zoloft) 50 mg PO DAILY mood 08/11/21 07/04/23 History albuterol sulfate 90 mcg/actuation 2 puff IH Q4H PRN PRN Sob &/Or 10/25/21 Unknown Rx aerosol inhaler Wheezing 30 days #8.6 grams apremilast 30 mg tablet (Otezla) 30 mg PO DAILY 09/08/22 07/03/23 History gabapentin 100 mg capsule 200 mg PO QHS 12/31/22 07/03/23 History levothyroxine 88 mcg tablet 88 mcg PO DAILY 12/31/22 07/04/23 History sucralfate 1 gram tablet (Carafate) 1 g PO BID #30 tabs 12/31/22 Unknown Rx trazodone 100 mg tablet 200 mg PO QHS 12/31/22 07/03/23 History aspirin 81 mg tablet,delayed 81 mg PO DAILY 01/28/23 06/30/23 History release (Adult Aspirin Regimen) bisacodyl 10 mg rectal suppository 10 mg HI DAILY PRN constipation 02/12/23 07/03/23 Rx (Dulcolax (bisacodyl)) #30 ea acetaminophen 325 mg capsule 650 mg PO Q4H PRN fever or pain 04/15/23 Unknown History aluminum-magnesium hydroxide 225 30 ml PO Q4H PRN PRN GI distress 04/15/23 Unknown History mg-200 mg/5 mL oral suspension melatonin 10 mg tablet 10 mg PO QHS 04/15/23 07/03/23 History midodrine 10 mg tablet 10 mg PO MOWEFR PRN hypotension 04/15/23 Unknown History torsemide 60 mg tablet 60 mg PO DAILY 04/15/23 07/03/23 History carvedilol 12.5 mg tablet 6.25 mg PO BID 07/01/23 07/04/23 History nystatin 100,000 unit/gram topical 1 applic topical BID PRN PRN SKIN 07/01/23 Unknown History powder ([facility]) pantoprazole 40 mg tablet,delayed 40 mg PO BID 07/01/23 07/04/23 History release baclofen 5 mg tablet 5 mg PO QHS 09/17/23 Unknown History famotidine 20 mg tablet 20 mg PO Q12.TCU 09/17/23 Unknown History dicyclomine 10 mg capsule 20 mg (2 x 10 mg) PO Q6H PRN PRN 09/18/23 Unknown Rx abdominal discomfort #30 CAPSULES hydrocodone-acetaminophen 5-325mg 1 tab PO Q6H PRN PRN Pain Score 09/18/23 Unknown Rx 5mg-325mg 6-10 2 days #10 tabs insulin glargine-yfgn 100 unit/mL 12 unit (0.12 mL) subcut BID #0 mL 09/18/23 Unknown Rx (3 mL) subcutaneous pen insulin lispro 100 unit/mL 6 unit (0.06 mL) subcut TIDCM #0 mL 09/18/23 Unknown Rx subcutaneous pen (Humalog KwikPen (U-100) Insulin) menthol 0.44 %-zinc oxide 20.6 % 1 applic topical BID #0 grams 09/18/23 Unknown Rx topical ointment (Calmoseptine) Allergy/AdvReac Type Severity Reaction Status Date / Time amlodipine (From Norvasc) Allergy Severe Hives Verified 09/26/23 00:50 ampicillin sodium (From Allergy Severe Hives Verified 09/26/23 00:50 Unasyn) buspirone HCl (From BuSpar) Allergy Severe Hives Verified 09/26/23 00:50 cefadroxil (From Duricef) Allergy Severe Hives Verified 09/26/23 00:50 lisinopril Allergy Severe Swelling Verified 09/26/23 00:50 naproxen Allergy Severe Hives Verified 09/26/23 00:50 niacin (From Niaspan Allergy Severe Hives Verified 09/26/23 00:50 Extended-Release) sulbactam sodium (From Allergy Severe Hives Verified 09/26/23 00:50 Unasyn) Sulfa (Sulfonamide Allergy Severe Hives Verified 09/26/23 00:50 Antibiotics) tramadol Allergy Mild Nausea Verified 09/26/23 00:50 cephalexin (From Keflex) Allergy Vomiting Verified 09/26/23 00:50 omeprazole AdvReac Severe Other Verified 09/26/23 00:50 losartan AdvReac Swelling Verified 09/26/23 00:50 Family History Mother Diabetes Anemia Father Hypertension LUNG/RESPIRATORY DISEASE Surgical History History of esophagogastroduodenoscopy (EGD) History of coronary artery stent placement History of cardiac catheterization History of appendectomy S/P arteriovenous (AV) fistula creation (~06/16/20) History of cholecystectomy History of left salpingo-oophorectomy History of radical hysterectomy History of left knee surgery History of ventral hernia repair History of liver transplant Social History housing: apartment current occupational status: disabled Smoking Status: Never smoker substance use type: does not use ROS ROS ED Constitutional Constitutional ED: Denies chills or fever(s) Eyes Eyes: Denies change in vision ENT ENT ED: Denies sore throat Cardiovascular Cardiovascular: Denies chest pain or palpitations Respiratory/Chest Respiratory/Chest: Denies cough or dyspnea Gastrointestinal Gastrointestinal: Denies abdominal pain, nausea or vomiting Musculoskeletal Musculoskeletal: Denies back pain or neck pain Integumentary Reports other Details: Scalp laceration ; Denies Abrasions or rash Neurologic Neurologic: Reports headache(s); Denies weakness Psychiatric Psychiatric: Denies anxiety or depression Allergic/Immunologic Allergic/Immunologic ED: Denies lip swelling or urticaria EXAM Physical Exam Const Vital Signs: 09/26/23 00:46 Temperature 98.4 F Temperature Source Oral Pulse Rate 94 Respiratory Rate 18 Blood Pressure 137/49 H Blood Pressure Mean 78 Pulse Ox 98 Oxygen Delivery Method Room Air Positive well nourished and well developed General Appearance ED: well developed HEENT HEENT Narrative: Patient has a hematoma over the posterior parietal scalp. There is a small, 1.5 cm laceration over the hematoma. Patient has old appearing bruising over her neck that she states has been present since her subdural hemorrhage last month. Chest Wall inspection of chest normal and palpation of chest normal Resp normal respiratory effort and clear to auscultation bilaterally Cardio regular rate and regular rhythm GI non-tender Palpation: soft Extremity Extremity Narrative: Left upper extremity fistula. There is a small, 1 cm total length V-shaped skin tear on the left forearm. No bony tenderness. Neuro oriented x3 Neuro Narrative: No focal neurologic deficit MDM MDM MDM Narrative Medical decision making narrative: CT scan of the head obtained to evaluate for any acute intracranial bleed. Treatment and Re-Evaluation Narrative: Scalp wound was cleansed. Patient states that when she previously had a similar laceration it was sealed with Dermabond and she request this to be done again if possible. With the underlying hematoma, I do feel this would be appropriate as sutures or mari would likely cause further bleeding. Dermabond was used to seal the laceration and Aryan wrap will be used in a headband fashion to help with light compression on the hematoma. The left forearm skin tear is cleansed and sealed with Dermabond. Dressing applied. CT scan of the head reveals high posterior right occipital scalp hematoma with no underlying fracture and no acute intracranial abnormality. Test results discussed with the patient. She is comfortable with discharge back to her ECF. She has an appointment for dialysis this morning as well as an appointment with her transplant doctor in [place]. Discharge Plan Triage Chief Complaint: Fall ED Provider: Dian Daniel Dx/Rx/DC Orders Clinical Impression: Fall, Closed head injury, Hematoma of scalp, Laceration of scalp, Skin tear Instructions: ED Head Injury (Adult), ED Hematoma, ED Laceration, All Closures Prescriptions: No Action bisacodyl [Dulcolax (bisacodyl)] 10 mg suppository 10 mg HI DAILY PRN (Reason: constipation) Qty: 30 0RF ascorbic acid (vitamin C) 500 MG tablet,chewable 1,000 mg PO DAILY Patient Comments: supplement cholecalciferol (vitamin D3) 1,000 UNIT tablet 1,000 unit PO BID Patient Comments: bone health ropinirole 1 mg tablet 1 mg PO DAILY tacrolimus [Prograf] 1 MG capsule 0.5 mg PO BID vitamin B complex 1 EACH tablet 1 tablet PO DAILY sevelamer carbonate [Renvela] 800 MG tablet 1,600 mg PO TIDCM ropinirole 2 MG tablet extended release 24 hr 2 mg PO QHS nitroglycerin 0.4 mg Tablet, Sublingual 0.4 mg sublingual Q5M PRN (Reason: Cardiac/Chest Pain) Qty: 30 0RF sertraline [Zoloft] 50 MG tablet 50 mg PO DAILY Patient Comments: depression biotin 1 mg Capsule 1 mg PO BID albuterol sulfate 1 PUFF inhaler 2 puff IH Q4H PRN PRN (Reason: Sob &/Or Wheezing) 30 Days Qty: 8.6 0RF Otezla 30 mg tablet 30 mg PO DAILY acetaminophen 325 mg capsule 650 mg PO Q4H PRN (Reason: fever or pain) aluminum-magnesium hydroxide 225-200 mg/5 mL suspension 30 ml PO Q4H PRN PRN (Reason: GI distress) melatonin 10 mg tablet 10 mg PO QHS midodrine 10 mg tablet 10 mg PO MOWEFR PRN (Reason: hypotension) Patient Comments: ON HOLD FOR LAST 2-3 WEEKS Rx Instructions: afternoon torsemide 60 mg tablet 60 mg PO DAILY levothyroxine 88 mcg tablet 88 mcg PO DAILY trazodone 100 mg tablet 200 mg PO QHS gabapentin 100 mg capsule 200 mg PO QHS Patient Comments: TAKE 2 CAPSULES BY MOUTH AT BEDTIME sucralfate [Carafate] 1 gram tablet 1 g PO BID Qty: 30 0RF aspirin [Adult Aspirin Regimen] 81 mg tablet,delayed release (DR/EC) 81 mg PO DAILY carvedilol 12.5 mg tablet 6.25 mg PO BID pantoprazole 40 mg tablet,delayed release (DR/EC) 40 mg PO BID nystatin [Nyamyc] 100,000 unit/gram Powder 1 applic topical BID PRN PRN (Reason: SKIN) Protocol: *Topical Application Instructions APPLICATION INSTRUCTIONS: apply to abdominal folds famotidine 20 mg tablet 20 mg PO Q12.TCU baclofen 5 mg tablet 5 mg PO QHS hydrocodone-acetaminophen 5-325 mg Tablet 1 tab PO Q6H PRN PRN (Reason: Pain Score 6-10) 2 Days Qty: 10 0RF insulin lispro [Humalog KwikPen Insulin] 100 unit/mL Insulin Pen 6 unit subcut TIDCM Qty: 0 0RF insulin glargine-yfgn 100 unit/mL (3 mL) Insulin Pen 12 unit subcut BID Qty: 0 0RF menthol-zinc oxide [Calmoseptine] 0.44-20.6 % Ointment 1 applic topical BID Qty: 0 0RF Protocol: *Topical Application Instructions APPLICATION INSTRUCTIONS: buttocks dicyclomine 10 mg capsule 20 mg PO Q6H PRN PRN (Reason: abdominal discomfort) Qty: 30 0RF Primary Care Provider: Velia Archuleta Referrals: Velia Archuleta MD [Primary Care Provider] - 5-7 Days Print Language: Zimbabwean Disposition Disposition: Alf Facility Discharge Location: [facility]
[2023-09-26] MEDS: Lidocaine 1% /Epi 1:100 (20ml) 20 ML Vial INFILT (02:41)
[2023-09-26 02:45] VITALS: BP 151/59; PULSE 75; RESP 16; TEMP 36.6; O2SAT 100
[2023-09-26 02:51] VITALS: BP 151/67; PULSE 73; RESP 16; O2SAT 97
[2023-09-26 04:00] VITALS: BP 130/68; PULSE 75; RESP 18; O2SAT 95
== END 2023-09-26 04:10 | disposition skilled nursing facility (03) ==
PROVIDERS: Emergency Provider Emergency Medicine; PCP Internal Medicine; Visit Provider Emergency Medicine
DX: S01.01XA Laceration without foreign body of scalp, initial encounter (principal); N18.6 End stage renal disease; I12.0 Hypertensive chronic kidney disease with stage 5 chronic kidney disease or end stage renal disease; Z94.4 Liver transplant status; J44.9 Chronic obstructive pulmonary disease, unspecified; E11.22 Type 2 diabetes mellitus with diabetic chronic kidney disease; Z79.4 Long term (current) use of insulin; S51.812A Laceration without foreign body of left forearm, initial encounter; W06.XXXA Fall from bed, initial encounter; Y93.89 Activity, other specified; Y99.8 Other external cause status; Y92.122 Bedroom in nursing home as the place of occurrence of the external cause; R29.6 Repeated falls; Z99.2 Dependence on renal dialysis; Z79.82 Long term (current) use of aspirin; Z79.899 Other long term (current) drug therapy
CPT/HCPCS: 12001; 70450; 99282

== ENCOUNTER → 2023-11-13 | Outpatient (CLI) | payer MEDICARE, MEDICAID, SELFPAY | END | disposition home or self-care (01) | PROVIDERS: PCP Internal Medicine; Referring Provider Podiatrist; Visit Provider Podiatrist | DX: L03.032 Cellulitis of left toe (principal) | CPT/HCPCS: 87070; 87075; 87077; 87186; 87205 ==

== ENCOUNTER 2023-11-20 16:57 | Inpatient (IN) | payer MEDICARE, MEDICAID, SELFPAY ==
[2023-11-20 16:28] VITALS: BMI 36.3
[2023-11-20 16:30] VITALS: BP 112/46; PULSE 80; RESP 15; TEMP 36.2; O2SAT 97
--- NOTE | 2023-11-20 17:00 | ADUL_ITS ---
Reason For Study: PVD Left Velocities Ext Iliac Artery, dist = 131.5 cm./sec. Common Femoral Artery, mid = 103.9 cm./sec. Supf. Femoral Artery, prox = 116.7 cm./sec. Supf. Femoral Artery, mid = 94.8 cm./sec. Supf. Femoral Artery, dist = 94.8 cm./sec. Profunda Femoral Artery = 83.8 cm./sec. Popliteal Artery, mid = 103.9 cm./sec. Post. Tibial Artery, prox = 30.5 cm./sec. Post Tibial Artery, mid = 22 cm./sec. Post Tibial Artery, dist. = 19.1 cm./sec. Peroneal Artery, prox = 45.5 cm./sec. Peroneal Artery, mid = 65.1 cm./sec. Peroneal Artery,dist. = 50 cm./sec. Ant.Tibial Artery, prox = 79 cm./sec. Ant Tibial Artery, mid = 81.8 cm./sec. Ant. Tibial Artery, distal = 108.8 cm./sec. Procedure Exam performed portable in patient room. /US Art Duplex Unilat Lower Ext Interpretation Summary Patent left lower extremity arteries with no stenosis or occlusion identified. Diminished waveforms in posterior tibial artery Ordering Physician: Reji Dennis Referring Physician: Velia Archuleta Performed By: Christine Shen RVT
--- NOTE | 2023-11-20 17:00 | ART_ITS ---
Reason For Study: PVD Procedure A bilateral lower extremity continuous wave Doppler with analog waveform analysis,segmental pressures,and ankle brachial indexes without exercise. Left Segmental Pressures Left posterior tibial artery = >254mmHg. Left dorsalis pedis artery = 231mmHg. Left digit = 62 mmHg. The left dorsalis pedis waveforms are triphasic. The left posterior tibial artery waveforms are triphasic. Right Segmental Pressures Right brachial= 141mmHg. Right posterior tibial artery = 146mmHg. Right dorsalis pedis artery = 168mmHg. Right digit = 50 mmHg. The right dorsalis pedis waveforms are biphasic. The right posterior tibial artery waveforms are triphasic. Indices The right ankle brachial index by the dorsalis pedis is 1.19. The right ankle brachial index by the posterior tibial artery is 1.04. The right digital-brachial index is 0.35. The left ankle brachial index by the dorsalis pedis is 1.64. The left ankle brachial index by the posterior tibial artery is NC. The left digital-brachial index is 0.44. VL/Lower Ext Art Exam w/o Exercis Interpretation Summary Right TRU 1.19, normal. Doppler/PVR waveforms of the right leg normal at rest. TBI diminished, pedal/digit disease vs spasm. Left TRU 1.64, normal. Doppler/PVR waveforms of the left leg normal at rest. TB I diminished, pedal/digit disease vs spasm. Ordering Physician: Reji Dennis Referring Physician: Velia Archuleta Performed By: Christine Shen RVT
--- NOTE | 2023-11-20 17:07 | PCM.HP.STD ---
[facility] - General General Date of Admission: 11/20/23 Chief Complaint: Left 5th toe gangrene [facility] Narrative CHRISTINA KUO, is a 68 F who presents for left 5th toe wound gangrene. She injured left 5th toe a little over a week ago, was cultured in office grew out multiple organisms, she presented to my office this morning and it was noted left 5th toe is ischemic. She relates she really does not have much pain because she has peripheral neuropathy. She has been taking Augmentin 500/125mg PO q 24 hours as outpatient. She has hx of diabetes and on dialysis MWF. Due to gangrene changes to the left 5th toe she was admitted for further workup and management. [facility] Medical History Ankle sprain Contusion of right shoulder Contusion of right knee Cervical strain, acute History of subdural hematoma (post traumatic) Closed head injury Generalized weakness Ambulatory dysfunction Diabetes Dialysis patient Sleep apnea Easy bruising Restless legs Difficulty swallowing Dietary restriction History of ulceration Shortness of breath on exertion CPAP (continuous positive airway pressure) dependence Influenza A Sepsis Acute dyspnea Pneumonia Anxiety Depression Hypothyroidism Irregular heart beat Hypertension DVT (deep venous thrombosis) Multiple falls Uses wheelchair History of renal dialysis Osteoporosis Cirrhosis Non-smoker ESRD (end stage renal disease) Pancytopenia Chronic renal failure, stage 5 Infection involving suture with abscess Wears glasses Wears dentures Cancer Insulin dependent diabetes mellitus Anemia Hx of Krueger's palsy Back pain Gastric reflux COPD (chronic obstructive pulmonary disease) History of edema History of echocardiogram (~01/22/20) History of stress test (~12/07/19) Cardiology follow-up encounter [facility] [employer] History of uterine cancer Hypertension Anemia in chronic kidney disease Home Medications ?Medication ?Instructions ?Recorded ?Last Taken ?Type ascorbic acid (vitamin C) 500 mg 1,000 mg PO DAILY supplement 02/20/15 07/03/23 History chewable tablet cholecalciferol (vitamin D3) 25 1,000 unit PO BID supplement 02/20/15 07/03/23 History mcg (1,000 unit) tablet tacrolimus 1 mg capsule, 0.5 mg PO BID REJECTION 09/10/19 07/04/23 History immediate-release (Prograf) vitamin B complex 1 tablet PO DAILY SUPPLEMENT 09/10/19 07/03/23 History ropinirole 1 mg tablet 1 mg PO DAILY restless legs 05/23/20 07/04/23 History ropinirole 2 mg tablet,extended 2 mg PO QHS restless legs 06/10/20 07/03/23 History release 24 hr sevelamer carbonate 800 mg tablet 1,600 mg PO TIDCM kidney disease 06/10/20 07/03/23 History (Renvela) nitroglycerin 0.4 mg sublingual 0.4 mg sublingual Q5M PRN 04/29/21 Unknown Rx tablet Cardiac/Chest Pain #30 tabs biotin 1 mg capsule 1 mg PO BID supplement 08/11/21 07/03/23 History sertraline 50 mg tablet (Zoloft) 100 mg PO DAILY mood 08/11/21 07/04/23 History albuterol sulfate 90 mcg/actuation 2 puff IH Q4H PRN PRN Sob &/Or 10/25/21 Unknown Rx aerosol inhaler Wheezing 30 days #8.6 grams apremilast 30 mg tablet (Otezla) 30 mg PO DAILY 09/08/22 07/03/23 History gabapentin 100 mg capsule 200 mg PO QHS 12/31/22 07/03/23 History levothyroxine 88 mcg tablet 88 mcg PO DAILY 12/31/22 07/04/23 History sucralfate 1 gram tablet (Carafate) 1 g PO BID #30 tabs 12/31/22 Unknown Rx trazodone 100 mg tablet 100 mg PO QHS 12/31/22 07/03/23 History aspirin 81 mg tablet,delayed 81 mg PO DAILY 01/28/23 06/30/23 History release (Adult Aspirin Regimen) bisacodyl 10 mg rectal suppository [address] DAILY PRN constipation 02/12/23 07/03/23 Rx (Dulcolax (bisacodyl)) #30 ea aluminum-magnesium hydroxide 225 30 ml PO Q4H PRN PRN GI distress 04/15/23 Unknown History mg-200 mg/5 mL oral suspension melatonin 10 mg tablet 10 mg PO QHS 04/15/23 07/03/23 History midodrine 10 mg tablet 10 mg PO MOWEFR PRN hypotension 04/15/23 Unknown History torsemide 60 mg tablet 60 mg PO DAILY 04/15/23 07/03/23 History carvedilol 12.5 mg tablet 6.25 mg PO BID 07/01/23 07/04/23 History nystatin 100,000 unit/gram topical 1 applic topical BID PRN PRN SKIN 07/01/23 Unknown History powder ([facility] [place] pantoprazole 40 mg tablet,delayed 40 mg PO BID 07/01/23 07/04/23 History release dicyclomine 10 mg capsule 20 mg (2 x 10 mg) PO Q6H PRN PRN 09/18/23 Unknown Rx abdominal discomfort #30 CAPSULES hydrocodone-acetaminophen 5-325mg 1 tab PO Q6H PRN PRN Pain Score 09/18/23 Unknown Rx 5mg-325mg 6-10 2 days #10 tabs insulin glargine-yfgn 100 unit/mL 12 unit (0.12 mL) subcut BID #0 mL 09/18/23 Unknown Rx (3 mL) subcutaneous pen insulin lispro 100 unit/mL 6 unit (0.06 mL) subcut TIDCM #0 mL 09/18/23 Unknown Rx subcutaneous pen (Humalog KwikPen (U-100) Insulin) menthol 0.44 %-zinc oxide 20.6 % 1 applic topical BID #0 grams 09/18/23 Unknown Rx topical ointment (Calmoseptine) atorvastatin 10 mg tablet 10 mg PO QHS 11/20/23 Unknown History Allergy/AdvReac Type Severity Reaction Status Date / Time amlodipine (From Norvasc) Allergy Severe Hives Verified 09/26/23 00:50 ampicillin sodium (From Allergy Severe Hives Verified 09/26/23 00:50 Unasyn) buspirone HCl (From BuSpar) Allergy Severe Hives Verified 09/26/23 00:50 cefadroxil (From Duricef) Allergy Severe Hives Verified 09/26/23 00:50 lisinopril Allergy Severe Swelling Verified 09/26/23 00:50 naproxen Allergy Severe Hives Verified 09/26/23 00:50 niacin (From Niaspan Allergy Severe Hives Verified 09/26/23 00:50 Extended-Release) sulbactam sodium (From Allergy Severe Hives Verified 09/26/23 00:50 Unasyn) Sulfa (Sulfonamide Allergy Severe Hives Verified 09/26/23 00:50 Antibiotics) tramadol Allergy Mild Nausea Verified 09/26/23 00:50 cephalexin (From Keflex) Allergy Vomiting Verified 09/26/23 00:50 omeprazole AdvReac Severe Other Verified 09/26/23 00:50 losartan AdvReac Swelling Verified 09/26/23 00:50 Family History Mother Diabetes Anemia Father Hypertension LUNG/RESPIRATORY DISEASE Surgical History History of esophagogastroduodenoscopy (EGD) History of coronary artery stent placement History of cardiac catheterization History of appendectomy S/P arteriovenous (AV) fistula creation (~06/16/20) History of cholecystectomy History of left salpingo-oophorectomy History of radical hysterectomy History of left knee surgery History of ventral hernia repair History of liver transplant Social History housing: apartment current occupational status: disabled Smoking Status: Never smoker substance use type: does not use Vital Signs Vital Signs Vital Signs: 11/20/23 16:30 Temperature 97.1 F L Temperature Source Temporal Pulse Rate 80 Respiratory Rate 15 Blood Pressure 112/46 L Blood Pressure Mean 68 Blood Pressure Source Monitor Blood Pressure Position Semi-Fowlers Blood Pressure Location Left Arm Pulse Ox 97 Oxygen Delivery Method Room Air Weight Weight: 99.201 kg Body Mass Index (BMI) 36.3 Physical Exam Const alert, oriented x3 and no apparent distress Constitutional Narrative: Left 5th toe with dry gangrene ischemic changes with some rubor localized to the site, otherwise no other open wounds, no drainage, no fluctuance, no crepitus, no visible abscess bilateral. There is erosion of skin to the dorsal right 5th toe, but no drainage or signs of infection. No other areas of ischemic changes bilateral foot/ankle. No POP or pain on ROM to the foot or ankle bilateral. She does have diffuse LE edema which is chronic in nature. Decreased sensation bilateral foot c/w chronic peripheral neuropathy. Results Lab / Micro Data 11/20/23 17:45 11/20/23 17:45 Assessment & Plan Assessment/Plan (1) Gangrene, not elsewhere classified: (2) Diabetes mellitus with diabetic polyneuropathy: PLAN: Plan Patient admitted for left 5th toe gangrene. Noninvasive vascular studies were ordered. Vascular surgery was consulted. Pending further vascular workup and recommendations patient will likely need left 5th toe amputation in future. Hospital medicine consulted - appreciated assistance Patient will also be started on IV antibiotics. There is a small erosion right 5th toe - keep offloaded at all times - cut out shoe to offload site.
[2023-11-20 17:58] LABS: Absolute Lymphocyte Count 0.59 X10^3/uL (0.83-4.51); Absolute Neutrophil Count 3.3 X10^3/uL (2.0-7.7); Basophil# 0.02 X10^3/uL; Basophil% 0.4 % (0-1); Eosinophil# 0.09 X10^3/uL; Hematocrit 33.8 % (37-47); Hemoglobin 10.2 g/dL (12.0-15.0); Lymphocyte # 0.59 X10^3/ul (0.83-4.51); Lymphocyte % 13.1 % (19-41); Mean Corp Hgb Conc 30.2 g/dL (32-36); Mean Corpuscular Hgb 30.3 pg (27.0-32.0); Mean Corpuscular Volume 100.3 fL (81-99); Mean Platelet Vol. 10.3 fl (6.2-12.0); Monocyte# 0.41 X10^3/uL; Monocyte% 9.1 % (0-10); NRBC Flagged by Analyzer 0.4 % (0-5); Neutrophil # 3.34 X10^3/uL (2.7-7.7); Neutrophil % 73.9 % (47-70); POSITIVE DIFFERENTIAL YES; POSITIVE MORPHOLOGY YES; Platelet Count 136 K/mm3 (150-450); RBC Distribution Width CV 18.1 % (11.6-14.6); RBC Distribution Width SD 66.8 fl (35.1-43.9); Red Blood Count 3.37 M/mm3 (4.2-5.4); White Blood Count 4.5 K/mm3 (4.4-11.0)
--- NOTE | 2023-11-20 18:11 | PN.HOSP_ITS ---
Reason for Visit Reason for Visit: Left fifth digit gangrene Subjective Subjective Patient is a 68-year-old white female who was directly admitted by Dr. Dennis for gangrene of her fifth digit on her left foot. She had been undergoing treatment for what initially appeared to be a cellulitis but her symptoms have progressed. She has neuropathy so she is not having much pain related to her foot. She does complain of some back pain. She has a complicated past medical history and is currently on dialysis for end-stage renal disease. She has a left upper extremity fistula. She also has previous liver transplant done in 2008 at [facility] [place]. She indicates she has a spot on her liver currently which is to undergo biopsy soon and reports that she may need another liver biopsy and if they do so they intend to do a liver and kidney at the same time. She denies any pain in her foot but does complain of pain in her tailbone from previous sacral fracture. Cultures of the toe were done on 11/13/2023 and current results show Enterobacter cloacae, Enterococcus faecalis, MRSA, and Klebsiella pneumonia. Given the cultures and sensitivities we will go ahead and treat her with cefepime and vancomycin. Cefepime will be dosed renally and vancomycin will be dosed by pharmacy. Per discussion with Dr. Dennis the plan is for removal of the fifth digit. Objective Data Objective Data Vital Signs: Vital Signs Temp Pulse Resp BP Pulse Ox O2 Del Method 97.1 F L 80 15 112/46 L 97 Room Air 11/20/23 16:30 11/20/23 16:30 11/20/23 16:30 11/20/23 16:30 11/20/23 16:30 11/20/23 16:30 Oxygen Delivery Method Room Air Weight: 99.201 kg Body Mass Index (BMI) 36.3 Lab / Micro Data 11/20/23 17:45 11/20/23 17:45 Physical Exam Const alert, oriented x3, no apparent distress and well nourished; Negative for average body habitus or healthy appearing Constitutional Narrative: Obese, very pleasant, upper middle-aged, white female, sitting up in bed, appears comfortable nontoxic, appears older than stated age, cooperative HEENT head/scalp atraumatic and moist oral mucous membranes HEENT Narrative: Dentures in place, Mallampati 2, no thrush Head and Scalp: normocephalic Resp normal respiratory effort, no retractions, no use of accessory muscles and clear to auscultation bilaterally Auscultation: Negative for rales, rhonchi or wheezes Cardio regular rate, regular rhythm, S1 normal heart sound, S2 normal heart sound, no murmurs, no rub, no gallops and no clicks GI normal to inspection, nondistended, normoactive bowel sounds, soft to palpation and non-tender GI Narrative: Firmness across her abdomen below her surgical incision for transplant 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 Extremity no clubbing, cyanosis or edema Extremity Narrative: Cap refill is slightly slow at 1+ bilateral lower extremities, left lower extremity is wrapped with Aryan bandage in place Neuro oriented x3, moves all extremities and no focal motor deficits Neuro Narrative: Decreased sensation distal bilateral lower extremities Speech: speech normal Psych affect normal Psych Narrative: Extremely pleasant, eye contact is good, patient interacts appropriately Assessment & Plan Assessment/Plan (1) Gangrene of left foot: (2) Hypokalemia: PLAN: Plan Gangrene with infection of the fifth digit on left foot -Recent cultures were polymicrobial with Enterococcus, Enterobacter, Klebsiella, MRSA -Will give cefepime 1 g x 1 dose and then dose 500 mg after dialysis on Saturday and Saturday -Vancomycin with pharmacy to dose -Consult infectious disease -Podiatry is primary -Consult PT/OT Hypokalemia -P.o. potassium replacement 40 mill equivalents -Recheck in a.m. -Check a.m. 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 -Transplant at [facility] in 2008 -Upcoming liver biopsy pending -Continue tacrolimus Diabetic neuropathy -Continue home gabapentin Essential hypertension/hyperlipidemia -Continue home carvedilol -Continue home atorvastatin GERD/history of GI bleed -Continue home Protonix -Continue home Carafate DM-2 -Continue home basal insulin 12 units twice daily -Continue prandial insulin 6 units 3 times daily with meals -SSI -Accu-Cheks as ordered -Will likely need basal insulin adjustment perioperatively Chronic anemia secondary to chronic renal disease/liver disease -Hemoglobin is stable at 10.2 -Monitor Obesity -Complicates treatment, prognosis, outcomes -BMI 36.4 DVT prophylaxis -Subcu heparin 3 times daily Charges/Coding Visit Charges Inpatient E&M: 13029 Subs Hosp L3
[2023-11-20 18:36] LABS: ALB/GLOB Ratio 0.6 RATIO (0.9-2.4); AST(SGOT) 27 U/L (15-37); Alanine Aminotransfer ALT/SGPT 32 U/L (13-56); Albumin, Serum 2.3 g/dL (3.2-5.0); Alkaline Phosphatase 125 U/L (45-117); Anion Gap 6 (5-15); BUN 13 mg/dL (7-18); BUN/Creat Ratio 3.6 RATIO (10-20); Calcium,Total 8.9 mg/dL (8.5-10.1); Chloride 97 mmol/L (98-107); Creatinine, Serum 3.57 mg/dL (0.55-1.02); EST Glomerular Filtration Rate 14 mL/min (>60); Est Glom Filt Rate - Afr Amer 16 mL/min (>60); Estimated Creatinine Clearance 18.08 ml/min; Globulin 3.9 g/dL (2.2-4.2); Glucose 181 mg/dL (74-106); Potassium 3.4 mmol/L (3.5-5.1); Protein, Total 6.2 g/dL (6.4-8.2); Sodium Level 136 mmol/L (136-145)
[2023-11-20] MEDS: Cefepime HCl 1 GM in 0.9% Normal Saline (50mL MB+) 50 ML IV (18:50)
[2023-11-20 19:03] LABS: Differential Indicated SCAN CRITERIA MET
[2023-11-20 19:04] LABS: Anisocytosis 1+; Differential Comment SCANNED
[2023-11-20] MEDS: Potassium Chloride Oral Tablet 20 MEQ 40 MEQ PO (20:08)
[2023-11-20] MEDS: Menthol/Lanolin/Calamine/Znox 113 GM Tube 1 APPLIC TOPICAL (20:29)
[2023-11-20] MEDS: Acetaminophen 500 MG Tablet 1000 MG PO (20:30)
[2023-11-20] MEDS: Sucralfate 1 GM Tablet PO (20:30)
[2023-11-20] MEDS: Heparin Injection (Vial) 5,000 UNIT/ML VIAL 5000 UNIT SC (20:31)
[2023-11-20] MEDS: Pantoprazole Sodium 40 MG Tablet PO (20:31)
[2023-11-20] MEDS: Pramipexole Di-HCl 0.25 MG Tablet PO (20:32)
[2023-11-20] MEDS: Atorvastatin Calcium 10 MG Tablet PO (20:33)
[2023-11-20] MEDS: Carvedilol 6.25 MG Tablet PO (20:33)
[2023-11-20] MEDS: traZODone 100 MG Tablet PO (20:34)
[2023-11-20] MEDS: Tacrolimus 0.5 MG Capsule PO (20:34)
[2023-11-20] MEDS: oxyCODONE 5 MG Tablet PO (20:38)
[2023-11-20] MEDS: 0.9% Saline Lock 10 ML Syringe IV (20:38)
[2023-11-20] MEDS: Gabapentin 100 MG Capsule 200 MG PO (20:39)
[2023-11-20 21:02] LABS: Bedside Glucose 178 mg/dL (74-106)
[2023-11-20 21:30] VITALS: BP 129/46; PULSE 83; RESP 16; TEMP 36.1; O2SAT 99
[2023-11-20] MEDS: Insulin Glargine-YFGN 100 UNIT/ML Pen 12 UNIT SC (21:47)
[2023-11-20 22:28] VITALS: PULSE 83; RESP 16; O2SAT 99
[2023-11-21 04:00] VITALS: BP 110/43; PULSE 72; RESP 16; TEMP 36; O2SAT 99
[2023-11-21] MEDS: Heparin Injection (Vial) 5,000 UNIT/ML VIAL 5000 UNIT SC ×3 (05:20→21:36)
[2023-11-21] MEDS: Acetaminophen 500 MG Tablet 1000 MG PO ×3 (05:22→21:39)
[2023-11-21] MEDS: Pramipexole Di-HCl 0.25 MG Tablet PO ×3 (05:22→21:38)
[2023-11-21] MEDS: Levothyroxine 88 MCG Tablet PO (05:22)
[2023-11-21 07:48] LABS: Absolute Lymphocyte Count 0.65 X10^3/uL (0.83-4.51); Absolute Neutrophil Count 2.3 X10^3/uL (2.0-7.7); Basophil# 0.01 X10^3/uL; Basophil% 0.3 % (0-1); Eosinophil# 0.15 X10^3/uL; Eosinophils% 4.2 % (0-5); Hematocrit 33.2 % (37-47); Hemoglobin 9.7 g/dL (12.0-15.0); Lymphocyte # 0.65 X10^3/ul (0.83-4.51); Mean Corp Hgb Conc 29.2 g/dL (32-36); Mean Corpuscular Hgb 29.7 pg (27.0-32.0); Mean Corpuscular Volume 101.5 fL (81-99); Mean Platelet Vol. 10.2 fl (6.2-12.0); Monocyte# 0.38 X10^3/uL; Monocyte% 10.5 % (0-10); NRBC Flagged by Analyzer 0 % (0-5); Neutrophil # 2.33 X10^3/uL (2.7-7.7); Neutrophil % 64.5 % (47-70); POSITIVE MORPHOLOGY YES; Platelet Count 119 K/mm3 (150-450); RBC Distribution Width CV 17.9 % (11.6-14.6); RBC Distribution Width SD 66.7 fl (35.1-43.9); Red Blood Count 3.27 M/mm3 (4.2-5.4); White Blood Count 3.6 K/mm3 (4.4-11.0)
--- NOTE | 2023-11-21 07:52 | PN.HOSP_ITS ---
Reason for Visit Reason for Visit: Diagnoses Hypokalemia (11/20/23) Gangrene, not elsewhere classified (11/20/23) Objective Data Objective Data Vital Signs: Vital Signs Temp Pulse Resp BP Pulse Ox O2 Del Method 96.8 F L 72 16 110/43 L 99 Room Air 11/21/23 04:00 11/21/23 04:00 11/21/23 04:00 11/21/23 04:00 11/21/23 04:00 11/21/23 04:00 Oxygen Delivery Method Room Air Weight: 218 lb 11.2 oz Body Mass Index (BMI) 36.3 Intake & Output: Intake and Output for Last 24 Hours 11/19/23 11/20/23 11/21/23 23:59 23:59 23:59 Intake Total 170 / 1130 192 / 1920 Output Total 0 / 0 Balance 170 / 1130 192 / 1920 Lab / Micro Data 11/20/23 17:45 11/20/23 17:45 Labs: Laboratory Results - last 24 hr 11/20/23 17:45: WBC 4.5, RBC 3.37 L, Hgb 10.2 L, Hct 33.8 L, MCV 100.3 H, MCH 30.3, MCHC 30.2 L, RDW Std Deviation 66.8 H, RDW Coeff of Tami 18.1 H, Plt Count 136 L, MPV 10.3, Immature Gran % (Auto) 1.500 H, Neut % (Auto) 73.9 H, Lymph % (Auto) 13.1 L, [place] % (Auto) 9.1, Eos % (Auto) 2.0, Baso % (Auto) 0.4, Absolute Neuts (auto) 3.3, Absolute Lymphs (auto) 0.59 L, Nucleated RBC % 0.4, Differential Comment SCANNED, Anisocytosis 1+, Sodium 136, Potassium 3.4 L, C hloride 97 L, Carbon Dioxide 33.0 H, Anion Gap 6, BUN 13, Creatinine 3.57 H, Estim Creat Clear Calc 18.08, Est GFR (MDRD) Af Amer 16 L, Est GFR (MDRD) Non-Af 14 L, BUN/Creatinine Ratio 3.6 L, Glucose 181 H, Calcium 8.9, Total Bilirubin 0.40, AST 27, ALT 32, Alkaline Phosphatase 125 H, Total Protein 6.2 L, Albumin 2.3 L, Globulin 3.9, Albumin/Globulin Ratio 0.6 L 11/20/23 20:43: POC Glucose 178 H Physical Exam Narrative Seen and examined. Patient was admitted by closing coordinator for left fifth toe wound gangrene. She injured left fifth toe little over a week ago and culture grew multiple organisms. She has neuropathy and does not have pain. She was taking Augmentin 500 mg/125 daily as outpatient. Physical exam: General: Alert, Oriented x3, Cooperative, BMI 36.4 kg square meter HEENT: Atraumatic, PERRLA, EOMI, Normocephalic Oral: No Gingival or Mucosal Lesions/ Ulcerations Neck: Supple, No JVD, Negative Carotid Bruits Chest wall/Lungs: Air entry diminished in bilateral lung bases. No crepitation/rhonchi Cardiovascular: Regular rate, Regular Rhythm, Normal S1, Normal S2, systolic murmur over the Abdomen: Status post liver transplant, surgical scar. Bowel Sounds Present, Soft, Non Tender, Non-Distended : Minimal urine once a day. On HD MWF no dysuria. No renal angle tenderness. No suprapubic tenderness. Extremities: No edema, Capillary Refill Less than 3 Seconds Skin: Dry gangrene of left fifth toe. It is wrinkled Musculoskeletal: No Tenderness to Palpation of Joints or Extremities Neurological: Cranial nerves II-XII grossly intact, DTR 2+/4. No touch or pressure sensation at ankle level below Psych/Mental Status: Normal Affect, Appropriate. Assessment & Plan Assessment/Plan (1) Gangrene of left foot: (2) Hypokalemia: PLAN: Plan This is a 68-year-old female with multiple comorbidities admitted for left fifth toe dry gangrene from podiatry office. 1. Dry gangrene with infection of the fifth digit on left foot: Patient admitted in ICU as MedSurg status and podiatry service -Recent cultures were polymicrobial with Enterococcus, Enterobacter, Klebsiella, MRSA - cefepime 1 g x 1 dose and then dose 500 mg after dialysis on Saturday and Saturday -Vancomycin with pharmacy to dose -Consult infectious disease PT and OT Hypokalemia -P.o. potassium replacement 40 mill equivalents On HD. Therefore no replacement aggressive. 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 Patient was seen by GI office in October 2023. Patient was told by housekeeping coordinator and they found a spot in the liver. It is being managed and followed by [facility] [place] housekeeping coordinator. Last CT scan abdomen/pelvis in May 2023 did not show any focal lesion in the liver but hepatic steatosis. Splenomegaly. Normal pancreas. -Continue tacrolimus Recent history of C. difficile: She had positive C. difficile antigen and PCR in June 2023 and was negative for toxin. Abdominal pain and diarrhea has improved and is. CT shows diffuse thickening of the colon in May 2023. Diabetic neuropathy -Continue home gabapentin Essential hypertension/hyperlipidemia -Continue home carvedilol -Continue home atorvastatin GERD/history of GI bleed -Continue home Protonix -Continue home Carafate DM-2 -Continue home basal insulin 12 units twice daily -Continue prandial insulin 6 units 3 times daily with meals -SSI -Accu-Cheks as ordered -Will likely need basal insulin adjustment perioperatively Chronic anemia secondary to chronic renal disease/liver disease -Hemoglobin is stable at 10.2 -Monitor Obesity -Complicates treatment, prognosis, outcomes -BMI 36.4 DVT prophylaxis -Subcu heparin 3 times daily Charges/Coding Addendum Addendum: Total time of the visit including total time spent in counseling or coordination of care, (more than 50% of the total time, spent in obtaining medical information from nurses and other ancillary care providers,explaining to the patient about labs, imaging, diagnosis and management of active complex medical conditions), multiple clinical condition including liver transplant, ESRD on hemodialysis, recent history of C. difficile, review of previous imaging, review of current labs and imaging is 40 minutes. Visit Charges Inpatient E&M: 53850 [facility] L3
--- NOTE | 2023-11-21 08:03 | PCM.PROGNOTE ---
Subjective Subjective Patient was seen this morning for follow up on left 5th toe. She is sitting up eating breakfast, no new complaints, no f/c/n/v. Objective Data Objective Data Vital Signs: Vital Signs Temp Pulse Resp BP Pulse Ox O2 Del Method 96.8 F L 72 16 110/43 L 99 Room Air 11/21/23 04:00 11/21/23 04:00 11/21/23 04:00 11/21/23 04:00 11/21/23 04:00 11/21/23 04:00 Oxygen Delivery Method Room Air Weight: 99.201 kg Body Mass Index (BMI) 36.3 Intake & Output: Intake and Output for Last 24 Hours 11/19/23 11/20/23 11/21/23 23:59 23:59 23:59 Intake Total 170 / 1130 1919 / 1920 Output Total 0 / 0 Balance 170 / 1130 192 / 1920 Lab / Micro Data 11/20/23 17:45 11/21/23 07:25 Labs: Laboratory Results - last 24 hr 11/20/23 17:45: WBC 4.5, RBC 3.37 L, Hgb 10.2 L, Hct 33.8 L, MCV 100.3 H, MCH 30.3, MCHC 30.2 L, RDW Std Deviation 66.8 H, RDW Coeff of Tami 18.1 H, Plt Count 136 L, MPV 10.3, Immature Gran % (Auto) 1.500 H, Neut % (Auto) 73.9 H, Lymph % (Auto) 13.1 L, [place] % (Auto) 9.1, Eos % (Auto) 2.0, Baso % (Auto) 0.4, Absolute Neuts (auto) 3.3, Absolute Lymphs (auto) 0.59 L, Nucleated RBC % 0.4, Differential Comment SCANNED, Anisocytosis 1+, Sodium 136, Potassium 3.4 L, Chloride 97 L, Carbon Dioxide 33.0 H, Anion Gap 6, BUN 13, Creatinine 3.57 H, Estim Creat Clear Calc 18.08, Est GFR (MDRD) Af Amer 16 L, Est GFR (MDRD) Non-Af 14 L, BUN/Creatinine Ratio 3.6 L, Glucose 181 H, Calcium 8.9, Total Bilirubin 0.40, AST 27, ALT 32, Alkaline Phosphatase 125 H, Total Protein 6.2 L, Albumin 2.3 L, Globulin 3.9, Albumin/Globulin Ratio 0.6 L 11/20/23 20:43: POC Glucose 178 H Physical Exam Const alert, oriented x3 and no apparent distress Constitutional Narrative: Left 5th toe with dry gangrene ischemic changes with some rubor localized to the site - stable, otherwise no other open wounds, no drainage, no fluctuance, no crepitus, no visible abscess bilateral. There is erosion of skin to the dorsal right 5th toe, but no drainage or signs of infection. No other areas of ischemic changes bilateral foot/ankle. No POP or pain on ROM to the foot or ankle bilateral. She does have diffuse LE edema which is chronic in nature. Decreased sensation bilateral foot c/w chronic peripheral neuropathy. Assessment & Plan Assessment/Plan (1) Gangrene, not elsewhere classified: (2) Diabetes mellitus with diabetic polyneuropathy: PLAN: Plan Patient admitted for left 5th toe gangrene - stable Noninvasive vascular studies were ordered. Vascular surgery was consulted. Pending further vascular workup and recommendations patient will likely need left 5th toe amputation Patient Cefepime IV antibiotics Hospital medicine and Nephrology consulted - appreciated assistance DVT Prophylaxis - SCDs, patient also on Heparin Also small erosion right 5th toe - stable - keep offloaded at all times - cut out shoe to offload site
[2023-11-21 08:16] LABS: Anion Gap 9 (5-15); BUN 19 mg/dL (7-18); BUN/Creat Ratio 4.3 RATIO (10-20); Calcium,Total 9.2 mg/dL (8.5-10.1); Chloride 98 mmol/L (98-107); Creatinine, Serum 4.43 mg/dL (0.55-1.02); EST Glomerular Filtration Rate 11 mL/min (>60); Est Glom Filt Rate - Afr Amer 13 mL/min (>60); Estimated Creatinine Clearance 14.57 ml/min; Glucose 136 mg/dL (74-106); Magnesium 2.1 mg/dL (1.6-2.6); Potassium 3.8 mmol/L (3.5-5.1); Sodium Level 138 mmol/L (136-145)
[2023-11-21] MEDS: Cholecalciferol (VIT D3) 25 MCG TABLET (1,000 UNITS) PO ×2 (08:21→21:36)
[2023-11-21] MEDS: Vitamin B Comp W-C Capsule 1 CAP PO (08:22)
[2023-11-21] MEDS: Tacrolimus 0.5 MG Capsule PO ×2 (08:22→21:36)
[2023-11-21] MEDS: Pantoprazole Sodium 40 MG Tablet PO ×2 (08:22→21:39)
[2023-11-21] MEDS: Aspirin E.C. 81 MG Tablet PO (08:22)
[2023-11-21] MEDS: Carvedilol 6.25 MG Tablet PO ×2 (08:23→21:39)
[2023-11-21] MEDS: SEVELAMER CARBONATE 800 MG TABLET 1600 MG PO ×3 (08:23→16:58)
[2023-11-21 08:24] LABS: Differential Indicated SCAN CRITERIA MET
[2023-11-21] MEDS: Ascorbic Acid 500 MG Tablet 1000 MG PO (08:24)
[2023-11-21] MEDS: Sertraline 100 MG Tablet PO (08:25)
[2023-11-21] MEDS: Insulin Glargine-YFGN 100 UNIT/ML Pen 12 UNIT SC ×2 (08:25→21:48)
[2023-11-21 08:30] VITALS: BP 129/46; PULSE 75; RESP 16; TEMP 35.8; O2SAT 98
[2023-11-21] MEDS: Insulin Lispro 100 UNIT/ML INSULN.PEN 6 UNIT SC ×3 (08:30→16:47)
[2023-11-21] MEDS: FLU VACCINE **HIGH DOSE** TV 24-25 180 MCG/0.5 ML SYRINGE IM (08:31)
[2023-11-21] MEDS: Menthol/Lanolin/Calamine/Znox 113 GM Tube 1 APPLIC TOPICAL ×2 (08:33→21:31)
[2023-11-21 08:44] LABS: Bedside Glucose 118 mg/dL (74-106)
[2023-11-21 08:45] LABS: AST(SGOT) 28 U/L (15-37); Alanine Aminotransfer ALT/SGPT 32 U/L (13-56); Albumin, Serum 2.2 g/dL (3.2-5.0); Alkaline Phosphatase 97 U/L (45-117); Bilirubin, Direct 0.18 mg/dL (0.00-0.30); Globulin 3.6 g/dL (2.2-4.2); Protein, Total 5.8 g/dL (6.4-8.2)
[2023-11-21] MEDS: Vancomycin HCl 2,000 MG in 0.9% Normal Saline (500mL Bag) 500 ML 250 MG IV (10:52)
[2023-11-21] MEDS: Sucralfate 1 GM Tablet PO ×2 (10:54→21:38)
[2023-11-21 11:39] LABS: Differential Comment SCANNED
[2023-11-21 11:40] LABS: Anisocytosis 2+; Macrocytosis 1+; Microcytosis 1+
[2023-11-21 12:04] LABS: Bedside Glucose 115 mg/dL (74-106)
--- NOTE | 2023-11-21 12:10 | CASEMGMT ---
RN CM drapery cutter machine CM to room to meet with patient for initial transition planning/care coordination assessment. RN CM introduced self and role at [facility], pt voices understanding. Pt is A&Ox4 and is sitting on edge of bed. Care providers, pharmacy, and demographics verified. LACE Strata: 3 PCP: Dr Archuleta Specialists: Dr Strickland (Grout Pump Operator), Dr Maurer (psychosocial rehabilitation counselor), Dr Alvarez (pain mgnt @ [facility]) ESRD/HD: Pt goes to OP HD @ [facility], chair time 0600. Preferred Pharmacy: [facility] @ discharge Insurance: [employer] MCR, [employer] Prescription Benefit: Yes LNOK: Carlos Guerrier (H), Sergecarmela Chey (GD), Kiet (Son) Living Arrangements: Pt lives in a 2nd-floor apartment with her with 14 steps to enter the home., but can enter through the back door, where there are only [address] up to back door as close as he can, so pt does not have to walk far. assists her in/out of shower, but she is able to wash self. Pt manages her own medications. Pt is able to cook by sitting on her rollator. Groceries are usually curb-side lemon picker @ [employer]. goes to basement to wash/dry laundry and pt folds them. Transportation: Pt states she can drive, but does not like to. Pt does most of the driving. [employer] provides transportation to OP HD @ [facility]: Pt uses a rollator and shower chair. She also has a cane and a raised toilet seat but does not use. She has an electric W/C she uses in the basement and community distances and to OP HD. She has a Dexcom CGM and reports having sufficient supplies. She also has a back-up glucometer w/supplies. She reports having enough insulin and needles. 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 She would like information on medical alert which was provided at this time. HHC/SNF: Pt was @ [facility] in September but states she had a bad experience, left AMA, and will never go back. She is active w/[facility] and would like to resume @ discharge and declines wanting list of other HHC options. Pt wishes to return home and states has no concerns with going home at time of discharge. Plan: Home w/[facility] w/Katerin DOWNING RN CM
--- NOTE | 2023-11-21 12:39 | PCM.RX.CS ---
Consult Antibiotic Management Pharmacy has been consulted to manage selected antibiotic: Vancomycin Type of Intervention Type of Consult: New start Prior Doses of Antibiotics Prior Doses of Antibiotics Received/Current Regimen: 11/21/23 @ 1052 2000mg dose x1 given Labs Labs: Sodium 138 mmol/L (136-145) 11/21/23 07:25 Potassium 3.8 mmol/L (3.5-5.1) 11/21/23 07:25 Chloride 98 mmol/L (98-107) 11/21/23 07:25 Carbon Dioxide 31.0 mmol/L (21.0-32.0) 11/21/23 07:25 Anion Gap 9 (5-15) 11/21/23 07:25 BUN 19 mg/dL (7-18) H 11/21/23 07:25 Creatinine 4.43 mg/dL (0.55-1.02) H 11/21/23 07:25 Est GFR (MDRD) Af Amer 13 mL/min (>60) L 11/21/23 07:25 Est GFR (MDRD) Non-Af 11 mL/min (>60) L 11/21/23 07:25 BUN/Creatinine Ratio 4.3 RATIO (10-20) L 11/21/23 07:25 Glucose 136 mg/dL (74-106) H 11/21/23 07:25 Dosing Weight Weight used for dosin.2 kg Estimated Creatinine Clearance Estimated Creatinine Clearance: 14.5 Goal Trough Goal Trough: 15-20 mcg/mL Pharmacy Plan for Drug Dosing Pharmacy Plan for Drug Dosing: Random Vancomycin level ordered for 1200 on 11/22/23 Pharmacy Service will continue to monitor and adjust dosing as required. Date/Time Labs Ordered Labs to be done on [date and time ordered]: 11/22/23 @ 1200
[2023-11-21 13:06] LABS: International Normalized Ratio 1.3
[2023-11-21] MEDS: metroNIDAZOLE 500 MG Tablet PO ×2 (13:32→21:36)
--- NOTE | 2023-11-21 13:43 | WOUNDNOTE ---
Dr Dennis had been in this am to assess the left 5th toe wound. will monitor.
[2023-11-21] MEDS: Cefepime HCl 1 GM in 0.9% Normal Saline (50mL MB+) 50 ML IV (13:58)
--- NOTE | 2023-11-21 14:05 | CASEMGMT ---
Discharge Planning HH resumption referral sent to [facility]. Julieta Marquis DC Planning Asst.
--- NOTE | 2023-11-21 15:12 | PCM.CONS.R ---
Assessment & Plan Assessment/Plan (1) End stage renal disease on dialysis: PLAN: ESRD. On hemodialysis Saturday, Saturday, Saturday. Next dialysis planned for tomorrow. Asymptomatic. Fistula. Anemia. Hemoglobin is under goal. Gets long-acting erythropoietin with dialysis Left toe gangrene. Currently on vancomycin and cefepime. Scheduled for surgery tomorrow Hypokalemia. Received potassium earlier. HPI Consult Data Date of Consult: 11/21/23 HPI Narrative Reason for Consultation: ESRD. HPI Narrative: CHRISTINA KUO, is a 68 F who presents to the hospital with gangrene of left fourth toe. He is well-known to me from outpatient dialysis unit. ESRD, on hemodialysis Saturday, Saturday, Saturday. Yesterday. As part of monthly foot check, she had a foot check a few weeks ago was found to have an ulcer. Has been following with podiatry. Outpatient follow-up with podiatry yesterday showed gangrene of the toe and she was referred to the ER. Likely amputation planned for tomorrow. Otherwise denies any symptoms. For access she has a left arm AV fistula. In general runs blood pressure on the lower side. [facility] Medical History Ankle sprain Contusion of right shoulder Contusion of right knee Cervical strain, acute History of subdural hematoma (post traumatic) Closed head injury Generalized weakness Ambulatory dysfunction Diabetes Dialysis patient Sleep apnea Easy bruising Restless legs Difficulty swallowing Dietary restriction History of ulceration Shortness of breath on exertion CPAP (continuous positive airway pressure) dependence Influenza A Sepsis Acute dyspnea Pneumonia Anxiety Depression Hypothyroidism Irregular heart beat Hypertension DVT (deep venous thrombosis) Multiple falls Uses wheelchair History of renal dialysis Osteoporosis Cirrhosis Non-smoker ESRD (end stage renal disease) Pancytopenia Chronic renal failure, stage 5 Infection involving suture with abscess Wears glasses Wears dentures Cancer Insulin dependent diabetes mellitus Anemia Hx of Krueger's palsy Back pain Gastric reflux COPD (chronic obstructive pulmonary disease) History of edema History of echocardiogram (~01/22/20) History of stress test (~12/07/19) Cardiology follow-up encounter [employer] History of uterine cancer Hypertension Anemia in chronic kidney disease Home Medications ?Medication ?Instructions ?Recorded ?Last Taken ?Type ascorbic acid (vitamin C) 500 mg 1,000 mg PO DAILY supplement 02/20/15 07/03/23 History chewable tablet cholecalciferol (vitamin D3) 25 1,000 unit PO BID supplement 02/20/15 07/03/23 History mcg (1,000 unit) tablet tacrolimus 1 mg capsule, 0.5 mg PO BID REJECTION 09/10/19 07/04/23 History immediate-release (Prograf) vitamin B complex 1 tablet PO DAILY SUPPLEMENT 09/10/19 07/03/23 History ropinirole 1 mg tablet 1 mg PO DAILY restless legs 05/23/20 07/04/23 History ropinirole 2 mg tablet,extended 2 mg PO QHS restless legs 06/10/20 07/03/23 History release 24 hr sevelamer carbonate 800 mg tablet 1,600 mg PO TIDCM kidney disease 06/10/20 07/03/23 History (Renvela) nitroglycerin 0.4 mg sublingual 0.4 mg sublingual Q5M PRN 04/29/21 Unknown Rx tablet Cardiac/Chest Pain #30 tabs biotin 1 mg capsule 1 mg PO BID supplement 08/11/21 07/03/23 History sertraline 50 mg tablet (Zoloft) 100 mg PO DAILY mood 08/11/21 07/04/23 History albuterol sulfate 90 mcg/actuation 2 puff IH Q4H PRN PRN Sob &/Or 10/25/21 Unknown Rx aerosol inhaler Wheezing 30 days #8.6 grams apremilast 30 mg tablet (Otezla) 30 mg PO DAILY 09/08/22 07/03/23 History gabapentin 100 mg capsule 200 mg PO QHS 12/31/22 07/03/23 History levothyroxine 88 mcg tablet 88 mcg PO DAILY 12/31/22 07/04/23 History sucralfate 1 gram tablet (Carafate) 1 g PO BID #30 tabs 12/31/22 Unknown Rx trazodone 100 mg tablet 100 mg PO QHS 12/31/22 07/03/23 History aspirin 81 mg tablet,delayed 81 mg PO DAILY 01/28/23 06/30/23 History release (Adult Aspirin Regimen) bisacodyl 10 mg rectal suppository 10 mg SC DAILY PRN constipation 02/12/23 07/03/23 Rx (Dulcolax (bisacodyl)) #30 ea aluminum-magnesium hydroxide 225 30 ml PO Q4H PRN PRN GI distress 04/15/23 Unknown History mg-200 mg/5 mL oral suspension melatonin 10 mg tablet 10 mg PO QHS 04/15/23 07/03/23 History midodrine 10 mg tablet 10 mg PO MOWEFR PRN hypotension 04/15/23 Unknown History torsemide 60 mg tablet 60 mg PO DAILY 04/15/23 07/03/23 History carvedilol 12.5 mg tablet 6.25 mg PO BID 07/01/23 07/04/23 History nystatin 100,000 unit/gram topical 1 applic topical BID PRN PRN SKIN 07/01/23 Unknown History powder ([facility]) pantoprazole 40 mg tablet,delayed 40 mg PO BID 07/01/23 07/04/23 History release dicyclomine 10 mg capsule 20 mg (2 x 10 mg) PO Q6H PRN PRN 09/18/23 Unknown Rx abdominal discomfort #30 CAPSULES hydrocodone-acetaminophen 5-325mg 1 tab PO Q6H PRN PRN Pain Score 09/18/23 Unknown Rx 5mg-325mg 6-10 2 days #10 tabs insulin glargine-yfgn 100 unit/mL 12 unit (0.12 mL) subcut BID #0 mL 09/18/23 Unknown Rx (3 mL) subcutaneous pen insulin lispro 100 unit/mL 6 unit (0.06 mL) subcut TIDCM #0 mL 09/18/23 Unknown Rx subcutaneous pen (Humalog KwikPen (U-100) Insulin) menthol 0.44 %-zinc oxide 20.6 % 1 applic topical BID #0 grams 09/18/23 Unknown Rx topical ointment (Calmoseptine) atorvastatin 10 mg tablet 10 mg PO QHS 11/20/23 Unknown History Allergy/AdvReac Type Severity Reaction Status Date / Time amlodipine (From Norvasc) Allergy Severe Hives Verified 09/26/23 00:50 ampicillin sodium (From Allergy Severe Hives Verified 09/26/23 00:50 Unasyn) buspirone HCl (From BuSpar) Allergy Severe Hives Verified 09/26/23 00:50 cefadroxil (From Duricef) Allergy Severe Hives Verified 09/26/23 00:50 lisinopril Allergy Severe Swelling Verified 09/26/23 00:50 naproxen Allergy Severe Hives Verified 09/26/23 00:50 niacin (From Niaspan Allergy Severe Hives Verified 09/26/23 00:50 Extended-Release) sulbactam sodium (From Allergy Severe Hives Verified 09/26/23 00:50 Unasyn) Sulfa (Sulfonamide Allergy Severe Hives Verified 09/26/23 00:50 Antibiotics) tramadol Allergy Mild Nausea Verified 09/26/23 00:50 cephalexin (From Keflex) Allergy Vomiting Verified 09/26/23 00:50 omeprazole AdvReac Severe Other Verified 09/26/23 00:50 losartan AdvReac Swelling Verified 09/26/23 00:50 Family History Mother Diabetes Anemia Father Hypertension LUNG/RESPIRATORY DISEASE Surgical History History of esophagogastroduodenoscopy (EGD) History of coronary artery stent placement History of cardiac catheterization History of appendectomy S/P arteriovenous (AV) fistula creation (~06/16/20) History of cholecystectomy History of left salpingo-oophorectomy History of radical hysterectomy History of left knee surgery History of ventral hernia repair History of liver transplant Social History housing: apartment current occupational status: disabled Smoking Status: Never smoker substance use type: does not use ROS ROS Narrative Negative except above Physical Exam Narrative Alert awake oriented x 3 no obvious distress no pallor no icterus no JVD s1s2 no murmurs lungs clear abdomen soft no organomegaly no edema Lab / Micro Data 11/21/23 07:25 11/21/23 07:25 Labs: Laboratory Results - last 24 hr 11/20/23 17:45: WBC 4.5, RBC 3.37 L, Hgb 10.2 L, Hct 33.8 L, MCV 100.3 H, MCH 30.3, MCHC 30.2 L, RDW Std Deviation 66.8 H, RDW Coeff of Tami 18.1 H, Plt Count 136 L, MPV 10.3, Immature Gran % (Auto) 1.500 H, Neut % (Auto) 73.9 H, Lymph % (Auto) 13.1 L, [place] % (Auto) 9.1, Eos % (Auto) 2.0, Baso % (Auto) 0.4, Absolute Neuts (auto) 3.3, Absolute Lymphs (auto) 0.59 L, Nucleated RBC % 0.4, Differential Comment SCANNED, Anisocytosis 1+, Sodium 136, Potassium 3.4 L, Chloride 97 L, Carbon Dioxide 33.0 H, Anion Gap 6, BUN 13, Creatinine 3.57 H, Estim Creat Clear Calc 18.08, Est GFR (MDRD) Af Amer 16 L, Est GFR (MDRD) Non-Af 14 L, BUN/Creatinine Ratio 3.6 L, Glucose 181 H, Calcium 8.9, Total Bilirubin 0.40, AST 27, ALT 32, Alkaline Phosphatase 125 H, Total Protein 6.2 L, Albumin 2.3 L, Globulin 3.9, Albumin/Globulin Ratio 0.6 L 11/20/23 20:43: POC Glucose 178 H 11/21/23 07:25: WBC 3.6 L, RBC 3.27 L, Hgb 9.7 L, Hct 33.2 L, MCV 101.5 H, MCH 29.7, MCHC 29.2 L, RDW Std Deviation 66.7 H, RDW Coeff of Tami 17.9 H, Plt Count 119 L, MPV 10.2, Immature Gran % (Auto) 2.500 H, Neut % (Auto) 64.5, Lymph % (Auto) 18.0 L, [place] % (Auto) 10.5 H, Eos % (Auto) 4.2, Baso % (Auto) 0.3, Absolute Neuts (auto) 2.3, Absolute Lymphs (auto) 0.65 L, Nucleated RBC % 0, Differential Comment SCANNED, Anisocytosis 2+, Microcytosis 1+, Macrocytosis 1+, Sodium 138, Potassium 3.8, Chloride 98, Carbon Dioxide 31.0, Anion Gap 9, BUN 19 H, Creatinine 4.43 H, Estim Creat Clear Calc 14.57, Est GFR (MDRD) Af Amer 13 L, Est GFR (MDRD) Non-Af 11 L, BUN/Creatinine Ratio 4.3 L, Glucose 136 H, Calcium 9.2, Phosphorus 4.0, Magnesium 2.1, Total Bilirubin 0.40, Direct Bilirubin 0.18, AST 28, ALT 32, Alkaline Phosphatase 97, Total Protein 5.8 L, Albumin 2.2 L, Globulin 3.6 11/21/23 08:20: POC Glucose 118 H 11/21/23 11:46: POC Glucose 115 H 11/21/23 12:40: PT 16.0 H, INR 1.3
--- NOTE | 2023-11-21 15:40 | CON.PCM.ID_ITS ---
Assessment & Plan Assessment/Plan (1) Gangrene of left foot: PLAN: Podiatry following. Cxs pending. Will adjust vanc/cefepime doses. Add po flagyl. Will follow, thank you (2) Diabetes mellitus with diabetic polyneuropathy: (3) End stage renal disease on dialysis: (4) History of liver transplant: HPI Consult Data Date of Consult: 11/21/23 HPI Narrative Reason for Consultation: foot infection HPI Narrative: CHRISTINA KUO, is a 68 F with h/o liver transplant, CKD, presented with 2 weeks progressive wound on L 5th toe, then toe turned black. Thinks it started by rubbing on her shoes. No fever or chills. Came to ED, admitted on vanc/cefepime. Feeling ok this AM. Full ROS performed and neg except as noted above. [facility] Medical History Ankle sprain Contusion of right shoulder Contusion of right knee Cervical strain, acute History of subdural hematoma (post traumatic) Closed head injury Generalized weakness Ambulatory dysfunction Diabetes Dialysis patient Sleep apnea Easy bruising Restless legs Difficulty swallowing Dietary restriction History of ulceration Shortness of breath on exertion CPAP (continuous positive airway pressure) dependence Influenza A Sepsis Acute dyspnea Pneumonia Anxiety Depression Hypothyroidism Irregular heart beat Hypertension DVT (deep venous thrombosis) Multiple falls Uses wheelchair History of renal dialysis Osteoporosis Cirrhosis Non-smoker ESRD (end stage renal disease) Pancytopenia Chronic renal failure, stage 5 Infection involving suture with abscess Wears glasses Wears dentures Cancer Insulin dependent diabetes mellitus Anemia Hx of Krueger's palsy Back pain Gastric reflux COPD (chronic obstructive pulmonary disease) History of edema History of echocardiogram (~01/22/20) History of stress test (~12/07/19) Cardiology follow-up encounter [employer] History of uterine cancer Hypertension Anemia in chronic kidney disease Home Medications ?Medication ?Instructions ?Recorded ?Last Taken ?Type ascorbic acid (vitamin C) 500 mg 1,000 mg PO DAILY supplement 02/20/15 07/03/23 History chewable tablet cholecalciferol (vitamin D3) 25 1,000 unit PO BID supplement 02/20/15 07/03/23 History mcg (1,000 unit) tablet tacrolimus 1 mg capsule, 0.5 mg PO BID REJECTION 09/10/19 07/04/23 History immediate-release (Prograf) vitamin B complex 1 tablet PO DAILY SUPPLEMENT 09/10/19 07/03/23 History ropinirole 1 mg tablet 1 mg PO DAILY restless legs 05/23/20 07/04/23 History ropinirole 2 mg tablet,extended 2 mg PO QHS restless legs 06/10/20 07/03/23 History release 24 hr sevelamer carbonate 800 mg tablet 1,600 mg PO TIDCM kidney disease 06/10/20 07/03/23 History (Renvela) nitroglycerin 0.4 mg sublingual 0.4 mg sublingual Q5M PRN 04/29/21 Unknown Rx tablet Cardiac/Chest Pain #30 tabs biotin 1 mg capsule 1 mg PO BID supplement 08/11/21 07/03/23 History sertraline 50 mg tablet (Zoloft) 100 mg PO DAILY mood 08/11/21 07/04/23 History albuterol sulfate 90 mcg/actuation 2 puff IH Q4H PRN PRN Sob &/Or 10/25/21 Unknown Rx aerosol inhaler Wheezing 30 days #8.6 grams apremilast 30 mg tablet (Otezla) 30 mg PO DAILY 09/08/22 07/03/23 History gabapentin 100 mg capsule 200 mg PO QHS 12/31/22 07/03/23 History levothyroxine 88 mcg tablet 88 mcg PO DAILY 12/31/22 07/04/23 History sucralfate 1 gram tablet (Carafate) 1 g PO BID #30 tabs 12/31/22 Unknown Rx trazodone 100 mg tablet 100 mg PO QHS 12/31/22 07/03/23 History aspirin 81 mg tablet,delayed 81 mg PO DAILY 01/28/23 06/30/23 History release (Adult Aspirin Regimen) bisacodyl 10 mg rectal suppository 10 mg SC DAILY PRN constipation 02/12/23 07/03/23 Rx (Dulcolax (bisacodyl)) #30 ea aluminum-magnesium hydroxide 225 30 ml PO Q4H PRN PRN GI distress 04/15/23 Unknown History mg-200 mg/5 mL oral suspension melatonin 10 mg tablet 10 mg PO QHS 04/15/23 07/03/23 History midodrine 10 mg tablet 10 mg PO MOWEFR PRN hypotension 04/15/23 Unknown History torsemide 60 mg tablet 60 mg PO DAILY 04/15/23 07/03/23 History carvedilol 12.5 mg tablet 6.25 mg PO BID 07/01/23 07/04/23 History nystatin 100,000 unit/gram topical 1 applic topical BID PRN PRN SKIN 07/01/23 Unknown History powder ([facility]) pantoprazole 40 mg tablet,delayed 40 mg PO BID 07/01/23 07/04/23 History release dicyclomine 10 mg capsule 20 mg (2 x 10 mg) PO Q6H PRN PRN 09/18/23 Unknown Rx abdominal discomfort #30 CAPSULES hydrocodone-acetaminophen 5-325mg 1 tab PO Q6H PRN PRN Pain Score 09/18/23 Unknown Rx 5mg-325mg 6-10 2 days #10 tabs insulin glargine-yfgn 100 unit/mL 12 unit (0.12 mL) subcut BID #0 mL 09/18/23 Unknown Rx (3 mL) subcutaneous pen insulin lispro 100 unit/mL 6 unit (0.06 mL) subcut TIDCM #0 mL 09/18/23 Unknown Rx subcutaneous pen (Humalog KwikPen (U-100) Insulin) menthol 0.44 %-zinc oxide 20.6 % 1 applic topical BID #0 grams 09/18/23 Unknown Rx topical ointment (Calmoseptine) atorvastatin 10 mg tablet 10 mg PO QHS 11/20/23 Unknown History Allergy/AdvReac Type Severity Reaction Status Date / Time amlodipine (From Norvasc) Allergy Severe Hives Verified 09/26/23 00:50 ampicillin sodium (From Allergy Severe Hives Verified 09/26/23 00:50 Unasyn) buspirone HCl (From BuSpar) Allergy Severe Hives Verified 09/26/23 00:50 cefadroxil (From Duricef) Allergy Severe Hives Verified 09/26/23 00:50 lisinopril Allergy Severe Swelling Verified 09/26/23 00:50 naproxen Allergy Severe Hives Verified 09/26/23 00:50 niacin (From Niaspan Allergy Severe Hives Verified 09/26/23 00:50 Extended-Release) sulbactam sodium (From Allergy Severe Hives Verified 09/26/23 00:50 Unasyn) Sulfa (Sulfonamide Allergy Severe Hives Verified 09/26/23 00:50 Antibiotics) tramadol Allergy Mild Nausea Verified 09/26/23 00:50 cephalexin (From Keflex) Allergy Vomiting Verified 09/26/23 00:50 omeprazole AdvReac Severe Other Verified 09/26/23 00:50 losartan AdvReac Swelling Verified 09/26/23 00:50 Family History Mother Diabetes Anemia Father Hypertension LUNG/RESPIRATORY DISEASE Surgical History History of esophagogastroduodenoscopy (EGD) History of coronary artery stent placement History of cardiac catheterization History of appendectomy S/P arteriovenous (AV) fistula creation (~06/16/20) History of cholecystectomy History of left salpingo-oophorectomy History of radical hysterectomy History of left knee surgery History of ventral hernia repair History of liver transplant Social History housing: apartment current occupational status: disabled Smoking Status: Never smoker substance use type: does not use Physical Exam Const alert, oriented x3 and no apparent distress General Appearance: cooperative HEENT normocephalic and head/scalp atraumatic Eyes PERRL and EOMs intact bilaterally Neck supple and No nodes Resp normal air movement and clear to auscultation bilaterally Cardio regular rate and regular rhythm GI soft to palpation, non-tender and non-distended Extremity General Extremity: edema Skin Skin Narrative: reviewed photos Neuro CN's II-XII intact bilaterally Lab / Micro Data Attestation: I reviewed the patient's lab results. 11/21/23 07:25 11/21/23 07:25 Labs: Laboratory Results - last 24 hr 11/20/23 17:45: WBC 4.5, RBC 3.37 L, Hgb 10.2 L, Hct 33.8 L, MCV 100.3 H, MCH 30.3, MCHC 30.2 L, RDW Std Deviation 66.8 H, RDW Coeff of Tami 18.1 H, Plt Count 136 L, MPV 10.3, Immature Gran % (Auto) 1.500 H, Neut % (Auto) 73.9 H, Lymph % (Auto) 13.1 L, [place] % (Auto) 9.1, Eos % (Auto) 2.0, Baso % (Auto) 0.4, Absolute Neuts (auto) 3.3, Absolute Lymphs (auto) 0.59 L, Nucleated RBC % 0.4, Differential Comment SCANNED, Anisocytosis 1+, Sodium 136, Potassium 3.4 L, C hloride 97 L, Carbon Dioxide 33.0 H, Anion Gap 6, BUN 13, Creatinine 3.57 H, Estim Creat Clear Calc 18.08, Est GFR (MDRD) Af Amer 16 L, Est GFR (MDRD) Non-Af 14 L, BUN/Creatinine Ratio 3.6 L, Glucose 181 H, Calcium 8.9, Total Bilirubin 0.40, AST 27, ALT 32, Alkaline Phosphatase 125 H, Total Protein 6.2 L, Albumin 2.3 L, Globulin 3.9, Albumin/Globulin Ratio 0.6 L 11/20/23 20:43: POC Glucose 178 H 11/21/23 07:25: WBC 3.6 L, RBC 3.27 L, Hgb 9.7 L, Hct 33.2 L, MCV 101.5 H, MCH 29.7, MCHC 29.2 L, RDW Std Deviation 66.7 H, RDW Coeff of Tami 17.9 H, Plt Count 119 L, MPV 10.2, Immature Gran % (Auto) 2.500 H, Neut % (Auto) 64.5, Lymph % (Auto) 18.0 L, [place] % (Auto) 10.5 H, Eos % (Auto) 4.2, Baso % (Auto) 0.3, Absolute Neuts (auto) 2.3, Absolute Lymphs (auto) 0.65 L, Nucleated RBC % 0, Differential Comment SCANNED, Anisocytosis 2+, Microcytosis 1+, Macrocytosis 1+, Sodium 138, Potassium 3.8, Chloride 98, Carbon Dioxide 31.0, Anion Gap 9, BUN 19 H, Creatinine 4.43 H, Estim Creat Clear Calc 14.57, Est GFR (MDRD) Af Amer 13 L, Est GFR (MDRD) Non-Af 11 L, BUN/Creatinine Ratio 4.3 L, Glucose 136 H, Calcium 9.2, Phosphorus 4.0, Magnesium 2.1, Total Bilirubin 0.40, Direct Bilirubin 0.18, AST 28, ALT 32, Alkaline Phosphatase 97, Total Protein 5.8 L, Albumin 2.2 L, Globulin 3.6 11/21/23 08:20: POC Glucose 118 H 11/21/23 11:46: POC Glucose 115 H 11/21/23 12:40: PT 16.0 H, INR 1.3
--- NOTE | 2023-11-21 16:44 | EX.PCM.CON.S ---
Assessment & Plan Assessment/Plan (1) Gangrene of toe of left foot: PLAN: Plan Arterial study did suggest noncompressible vessels in the right leg but with triphasic waveforms throughout which suggest good inflow and vascular exam reveals palpable DP pulse. Expect that she has sufficient arterial inflow to heal planned left fifth toe amputation. Appearance of the left fifth toe may be consistent with atheroembolic event versus local trauma in addition to diabetic status. Discussed with patient that we while she does not need vascular intervention prior to podiatry surgery, would recommend CTA to further evaluate for potential atheroembolic source and she is agreeable to this. HPI Consult Data Date of Consult: 11/21/23 HPI Narrative HPI Narrative: CHRISTINA KUO, is a 68 F who is admitted for management of her left fifth toe dry gangrene by podiatry Dr. Dennis. She reports that her toe began to look discolored and with an ulceration just about 2 weeks ago and then this progressively worsened to the appearance of gangrene. She did have some outpatient x-rays done which did not suggest any osteomyelitis. She thinks the wound could have started from her foot rubbing against her shoe but otherwise had no known injury. She does have diabetic peripheral neuropathy and cannot feel her toes. Her diabetes is well-controlled with most recent A1c 4.9 in September 2023. She denies any history of prior similar wounds. She denies any prior claudication or rest pain. She denies any history of prior vascular surgical interventions. Podiatry is planning for left fifth toe amputation, potentially tomorrow. She did have arterial studies done today which showed right TRU 1.19 with tri/biphasic waveforms and left TRU 1.64 with triphasic waveforms throughout. She does take aspirin 81 mg and atorvastatin 10 mg daily. Her medical history is otherwise significant for end-stage renal disease on dialysis via left arm AV fistula, status post liver transplant chronically immunosuppressed with tacrolimus, diastolic CHF, psoriasis, RAUL. [facility] Medical History Ankle sprain Contusion of right shoulder Contusion of right knee Cervical strain, acute History of subdural hematoma (post traumatic) Closed head injury Generalized weakness Ambulatory dysfunction Diabetes Dialysis patient Sleep apnea Easy bruising Restless legs Difficulty swallowing Dietary restriction History of ulceration Shortness of breath on exertion CPAP (continuous positive airway pressure) dependence Influenza A Sepsis Acute dyspnea Pneumonia Anxiety Depression Hypothyroidism Irregular heart beat Hypertension DVT (deep venous thrombosis) Multiple falls Uses wheelchair History of renal dialysis Osteoporosis Cirrhosis Non-smoker ESRD (end stage renal disease) Pancytopenia Chronic renal failure, stage 5 Infection involving suture with abscess Wears glasses Wears dentures Cancer Insulin dependent diabetes mellitus Anemia Hx of Krueger's palsy Back pain Gastric reflux COPD (chronic obstructive pulmonary disease) History of edema History of echocardiogram (~01/22/20) History of stress test (~12/07/19) Cardiology follow-up encounter [facility]PL[facility] History of uterine cancer Hypertension Anemia in chronic kidney disease Home Medications ?Medication ?Instructions ?Recorded ?Last Taken ?Type ascorbic acid (vitamin C) 500 mg 1,000 mg PO DAILY supplement 02/20/15 07/03/23 History chewable tablet cholecalciferol (vitamin D3) 25 1,000 unit PO BID supplement 02/20/15 07/03/23 History mcg (1,000 unit) tablet tacrolimus 1 mg capsule, 0.5 mg PO BID REJECTION 09/10/19 07/04/23 History immediate-release (Prograf) vitamin B complex 1 tablet PO DAILY SUPPLEMENT 09/10/19 07/03/23 History ropinirole 1 mg tablet 1 mg PO DAILY restless legs 05/23/20 07/04/23 History ropinirole 2 mg tablet,extended 2 mg PO QHS restless legs 06/10/20 07/03/23 History release 24 hr sevelamer carbonate 800 mg tablet 1,600 mg PO TIDCM kidney disease 06/10/20 07/03/23 History (Renvela) nitroglycerin 0.4 mg sublingual 0.4 mg sublingual Q5M PRN 04/29/21 Unknown Rx tablet Cardiac/Chest Pain #30 tabs biotin 1 mg capsule 1 mg PO BID supplement 08/11/21 07/03/23 History sertraline 50 mg tablet (Zoloft) 100 mg PO DAILY mood 08/11/21 07/04/23 History albuterol sulfate 90 mcg/actuation 2 puff IH Q4H PRN PRN Sob &/Or 10/25/21 Unknown Rx aerosol inhaler Wheezing 30 days #8.6 grams apremilast 30 mg tablet (Otezla) 30 mg PO DAILY 09/08/22 07/03/23 History gabapentin 100 mg capsule 200 mg PO QHS 12/31/22 07/03/23 History levothyroxine 88 mcg tablet 88 mcg PO DAILY 12/31/22 07/04/23 History sucralfate 1 gram tablet (Carafate) 1 g PO BID #30 tabs 12/31/22 Unknown Rx trazodone 100 mg tablet 100 mg PO QHS 12/31/22 07/03/23 History aspirin 81 mg tablet,delayed 81 mg PO DAILY 01/28/23 06/30/23 History release (Adult Aspirin Regimen) bisacodyl 10 mg rectal suppository 10 mg SC DAILY PRN constipation 02/12/23 07/03/23 Rx (Dulcolax (bisacodyl)) #30 ea aluminum-magnesium hydroxide 225 30 ml PO Q4H PRN PRN GI distress 04/15/23 Unknown History mg-200 mg/5 mL oral suspension melatonin 10 mg tablet 10 mg PO QHS 04/15/23 07/03/23 History midodrine 10 mg tablet 10 mg PO MOWEFR PRN hypotension 04/15/23 Unknown History torsemide 60 mg tablet 60 mg PO DAILY 04/15/23 07/03/23 History carvedilol 12.5 mg tablet 6.25 mg PO BID 07/01/23 07/04/23 History nystatin 100,000 unit/gram topical 1 applic topical BID PRN PRN SKIN 07/01/23 Unknown History powder ([facility]) pantoprazole 40 mg tablet,delayed 40 mg PO BID 07/01/23 07/04/23 History release dicyclomine 10 mg capsule 20 mg (2 x 10 mg) PO Q6H PRN PRN 09/18/23 Unknown Rx abdominal discomfort #30 CAPSULES hydrocodone-acetaminophen 5-325mg 1 tab PO Q6H PRN PRN Pain Score 09/18/23 Unknown Rx 5mg-325mg 6-10 2 days #10 tabs insulin glargine-yfgn 100 unit/mL 12 unit (0.12 mL) subcut BID #0 mL 09/18/23 Unknown Rx (3 mL) subcutaneous pen insulin lispro 100 unit/mL 6 unit (0.06 mL) subcut TIDCM #0 mL 09/18/23 Unknown Rx subcutaneous pen (Humalog KwikPen (U-100) Insulin) menthol 0.44 %-zinc oxide 20.6 % 1 applic topical BID #0 grams 09/18/23 Unknown Rx topical ointment (Calmoseptine) atorvastatin 10 mg tablet 10 mg PO QHS 11/20/23 Unknown History Allergy/AdvReac Type Severity Reaction Status Date / Time amlodipine (From Norvasc) Allergy Severe Hives Verified 09/26/23 00:50 ampicillin sodium (From Allergy Severe Hives Verified 09/26/23 00:50 Unasyn) buspirone HCl (From BuSpar) Allergy Severe Hives Verified 09/26/23 00:50 cefadroxil (From Duricef) Allergy Severe Hives Verified 09/26/23 00:50 lisinopril Allergy Severe Swelling Verified 09/26/23 00:50 naproxen Allergy Severe Hives Verified 09/26/23 00:50 niacin (From Niaspan Allergy Severe Hives Verified 09/26/23 00:50 Extended-Release) sulbactam sodium (From Allergy Severe Hives Verified 09/26/23 00:50 Unasyn) Sulfa (Sulfonamide Allergy Severe Hives Verified 09/26/23 00:50 Antibiotics) tramadol Allergy Mild Nausea Verified 09/26/23 00:50 cephalexin (From Keflex) Allergy Vomiting Verified 09/26/23 00:50 omeprazole AdvReac Severe Other Verified 09/26/23 00:50 losartan AdvReac Swelling Verified 09/26/23 00:50 Family History Mother Diabetes Anemia Father Hypertension LUNG/RESPIRATORY DISEASE Surgical History History of esophagogastroduodenoscopy (EGD) History of coronary artery stent placement History of cardiac catheterization History of appendectomy S/P arteriovenous (AV) fistula creation (~06/16/20) History of cholecystectomy History of left salpingo-oophorectomy History of radical hysterectomy History of left knee surgery History of ventral hernia repair History of liver transplant Social History housing: apartment current occupational status: disabled Smoking Status: Never smoker substance use type: does not use Physical Exam Const alert, oriented x3, no apparent distress and healthy appearing General Appearance: cooperative and comfortable HEENT normocephalic, head/scalp atraumatic, hearing grossly normal bilaterally, external ears normal and external nose normal Eyes EOMs intact bilaterally General Eye: normal appearance of both eyes Neck General: normal visual inspection and trachea midline Resp normal respiratory effort, normal air movement, no retractions and no use of accessory muscles Effort and Inspection: able to speak in complete sentences Cardio regular rate and regular rhythm Extremity Extremity Narrative: Left fifth toe with dry gangrene along the lateral aspect and the rest of the toe with some mottling, otherwise the rest of the left foot and digits are appropriately warm and pink. Right fifth toe with small superficial ulceration which appears to be well-healing, right foot appropriately warm and pink. Peripheral Pulses: Yes femoral pulses present, popliteal pulses present, posterior tibial pulses present and dorsalis pedis pulses present Neuro oriented x3, CN's II-XII intact bilaterally, moves all extremities and no focal motor deficits Psych mental status grossly normal Appearance: grossly normal Attitude: calm and engaged Activity / Motor Behavior: appropriate eye contact Speech: normal speech Mood & Affect: euthymic mood Judgement: judgement good Lab / Micro Data 11/21/23 07:25 11/21/23 07:25 Labs: Laboratory Results - last 24 hr 11/20/23 17:45: WBC 4.5, RBC 3.37 L, Hgb 10.2 L, Hct 33.8 L, MCV 100.3 H, MCH 30.3, MCHC 30.2 L, RDW Std Deviation 66.8 H, RDW Coeff of Tami 18.1 H, Plt Count 136 L, MPV 10.3, Immature Gran % (Auto) 1.500 H, Neut % (Auto) 73.9 H, Lymph % (Auto) 13.1 L, Hockley % (Auto) 9.1, Eos % (Auto) 2.0, Baso % (Auto) 0.4, Absolute Neuts (auto) 3.3, Absolute Lymphs (auto) 0.59 L, Nucleated RBC % 0.4, Differential Comment SCANNED, Anisocytosis 1+, Sodium 136, Potassium 3.4 L, Chloride 97 L, Carbon Dioxide 33.0 H, Anion Gap 6, BUN 13, Creatinine 3.57 H, Estim Creat Clear Calc 18.08, Est GFR (MDRD) Af Amer 16 L, Est GFR (MDRD) Non-Af 14 L, BUN/Creatinine Ratio 3.6 L, Glucose 181 H, Calcium 8.9, Total Bilirubin 0.40, AST 27, ALT 32, Alkaline Phosphatase 125 H, Total Protein 6.2 L, Albumin 2.3 L, Globulin 3.9, Albumin/Globulin Ratio 0.6 L 11/20/23 20:43: POC Glucose 178 H 11/21/23 07:25: WBC 3.6 L, RBC 3.27 L, Hgb 9.7 L, Hct 33.2 L, MCV 101.5 H, MCH 29.7, MCHC 29.2 L, RDW Std Deviation 66.7 H, RDW Coeff of Tami 17.9 H, Plt Count 119 L, MPV 10.2, Immature Gran % (Auto) 2.500 H, Neut % (Auto) 64.5, Lymph % (Auto) 18.0 L, Hockley % (Auto) 10.5 H, Eos % (Auto) 4.2, Baso % (Auto) 0.3, Absolute Neuts (auto) 2.3, Absolute Lymphs (auto) 0.65 L, Nucleated RBC % 0, Differential Comment SCANNED, Anisocytosis 2+, Microcytosis 1+, Macrocytosis 1+, Sodium 138, Potassium 3.8, Chloride 98, Carbon Dioxide 31.0, Anion Gap 9, BUN 19 H, Creatinine 4.43 H, Estim Creat Clear Calc 14.57, Est GFR (MDRD) Af Amer 13 L, Est GFR (MDRD) Non-Af 11 L, BUN/Creatinine Ratio 4.3 L, Glucose 136 H, Calcium 9.2, Phosphorus 4.0, Magnesium 2.1, Total Bilirubin 0.40, Direct Bilirubin 0.18, AST 28, ALT 32, Alkaline Phosphatase 97, Total Protein 5.8 L, Albumin 2.2 L, Globulin 3.6 11/21/23 08:20: POC Glucose 118 H 11/21/23 11:46: POC Glucose 115 H 11/21/23 12:40: PT 16.0 H, INR 1.3 Charges/Coding Visit Charges Inpatient E&M: 46976 Init Hosp L2
[2023-11-21] MEDS: Insulin Lispro 100 UNIT/ML INSULN.PEN SC (16:48)
[2023-11-21 16:55] VITALS: BP 146/60; PULSE 77; RESP 18; TEMP 35.9; O2SAT 94
[2023-11-21 17:07] LABS: Bedside Glucose 154 mg/dL (74-106)
--- NOTE | 2023-11-21 18:31 | CT_ITS ---
STUDY: CTA OF THE ABDOMINAL AORTA AND BILATERAL LOWER EXTREMITIES REASON FOR EXAM: Female, 68 years old. Blue toe syndrome RADIATION DOSAGE (If Supplied By Facility): CTDIvol = ( 12.38 ) mGy, DLP = ( 1564.97 ) mGycm TECHNIQUE: Axial CT angiography multi-detector data acquisition was obtained from the dome of the liver to the level of the ankles following intravenous administration of IV 100mL Isovue-370. Axial images and MIP images were reconstructed from the axial data set. Post-processing of the angiographic images was performed, with multiplanar reformation and 3D reconstruction. Individualized dose optimization techniques were used for this CT. TECHNICAL QUALITY: Good COMPARISON: None. Descriptors of Narrowing: None (0%) Mild (< 50%) Moderate (50-70%) Severe (70-90%) Subtotal/Total Occlusion (90-100%) Non-Evaluable (technically non-diagnostic FINDINGS: Coronary artery calcification. Minimal posterior pericardial thickening. Diffuse fatty infiltration of the liver. Moderate cardiomegaly. The patient is status post cholecystectomy. Bilateral renal atrophy. Abdominal aorta: Atherosclerotic plaques. No evidence of aneurysmal formation. Celiac and superior mesenteric arteries: No demonstrated narrowing. Inferior mesenteric artery: No demonstrated narrowing. Right renal artery(arteries): No demonstrated narrowing. Left renal artery(arteries): No demonstrated narrowing. Right common iliac artery: Mild degree of nonstenotic atherosclerotic plaques. Right external iliac artery: No demonstrated narrowing. Right internal iliac artery: No demonstrated narrowing. Left common iliac artery: No demonstrated narrowing. Left external iliac artery: No demonstrated narrowing. Left internal iliac artery: No demonstrated narrowing. RIGHT LOWER EXTREMITY Right common femoral artery: No demonstrated narrowing. Right profundus femoris: No demonstrated narrowing. Right superficial femoral: No demonstrated narrowing. Right popliteal artery: No demonstrated narrowing. Right tibioperoneal trunk: No demonstrated narrowing. Right anterior tibial artery: Patent although focal areas of tight stenosis throughout its course. Right posterior tibial artery: Patent with focal areas of stenoses. Right peroneal artery: Marked degree of atherosclerotic plaque formation throughout the peroneal artery with the focal areas of tight stenoses. LEFT LOWER EXTREMITY Left common femoral artery: No demonstrated narrowing. Left profundus femoris: No demonstrated narrowing. Left superficial femoral: No demonstrated narrowing. Left popliteal artery: No demonstrated narrowing. Left tibioperoneal trunk: No demonstrated narrowing. Left anterior tibial artery: Calcific plaques and focal areas of tight stenoses. Left posterior tibial artery: No demonstrated narrowing. Left peroneal artery: Focal calcific plaques with tight stenoses. CT/CTA Abd w/Runoff W/WO Contrast IMPRESSION: Three-vessel runoff in both lower extremities although there is evidence of focal tight stenosis throughout the course of the right peroneal artery as well as the left peroneal and left anterior tibial arteries. Electronically Signed: Naren Boston MD at 10:15 EDT ,
[2023-11-21] MEDS: Gabapentin 100 MG Capsule 200 MG PO (21:31)
[2023-11-21] MEDS: Atorvastatin Calcium 10 MG Tablet PO (21:36)
[2023-11-21] MEDS: traZODone 100 MG Tablet PO (21:38)
[2023-11-21 21:56] VITALS: BP 147/67; PULSE 83; RESP 16; RESP 18; TEMP 36.2; O2SAT 97
[2023-11-21 22:12] LABS: Bedside Glucose 116 mg/dL (74-106)
[2023-11-22] VITALS (19 sets, daily range): BP systolic 109–204; BP diastolic 38–73; PULSE 60–85; RESP 14–20; TEMP 36.4–37; O2SAT 94–100; BMI 36.3
[2023-11-22] MEDS: 0.9% Saline Lock 10 ML Syringe IV ×2 (02:44→07:09)
[2023-11-22] MEDS: oxyCODONE 5 MG Tablet PO ×2 (02:44→21:04)
--- NOTE | 2023-11-22 05:15 | EKG12_ITS ---
Test Reason : PRE OP Blood Pressure : / mmHG Vent. Rate : 073 BPM Atrial Rate : 073 BPM P-R Int : 220 ms QRS Dur : 112 ms QT Int : 402 ms P-R-T Axes : 055 -52 039 degrees QTc Int : 442 ms Sinus rhythm with 1st degree A-V block with Premature atrial complexes Left axis deviation Minimal voltage criteria for LVH, may be normal variant ( Matt product ) Anterolateral infarct (cited on or before 15-AUG-2023) Abnormal ECG Confirmed by Aravind Desir ([id number]), assistant production editor STEPHANIE PHAM ([id number]) on 11/25/2023 1:33:31 PM Referred By: JULES Confirmed By:Aravind Desir
[2023-11-22] MEDS: Acetaminophen 500 MG Tablet 1000 MG PO ×3 (05:38→21:01)
[2023-11-22] MEDS: Levothyroxine 88 MCG Tablet PO (05:38)
[2023-11-22] MEDS: Pramipexole Di-HCl 0.25 MG Tablet PO ×3 (05:38→21:00)
[2023-11-22] MEDS: Heparin Injection (Vial) 5,000 UNIT/ML VIAL 5000 UNIT SC ×3 (05:39→20:59)
[2023-11-22] MEDS: metroNIDAZOLE 500 MG Tablet PO ×3 (05:40→20:59)
[2023-11-22] MEDS: 0.9% Normal Saline 1,000 ML IV.SOLN. 1000 ML OPERA.SITE (07:10)
[2023-11-22] MEDS: PureFlow B 2K Dialysis Soln 1 BAG 6 BAG PF (07:10)
[2023-11-22 07:35] LABS: Absolute Lymphocyte Count 0.45 X10^3/uL (0.83-4.51); Absolute Neutrophil Count 2.2 X10^3/uL (2.0-7.7); Basophil# 0.01 X10^3/uL; Basophil% 0.3 % (0-1); Eosinophil# 0.16 X10^3/uL; Eosinophils% 5.1 % (0-5); Hematocrit 30.8 % (37-47); Hemoglobin 9.2 g/dL (12.0-15.0); Lymphocyte # 0.45 X10^3/ul (0.83-4.51); Lymphocyte % 14.4 % (19-41); Mean Corp Hgb Conc 29.9 g/dL (32-36); Mean Corpuscular Hgb 30.1 pg (27.0-32.0); Mean Corpuscular Volume 100.7 fL (81-99); Mean Platelet Vol. 10.1 fl (6.2-12.0); Monocyte# 0.24 X10^3/uL; Monocyte% 7.7 % (0-10); NRBC Flagged by Analyzer 0 % (0-5); Neutrophil # 2.17 X10^3/uL (2.7-7.7); Neutrophil % 69.6 % (47-70); POSITIVE DIFFERENTIAL YES; POSITIVE MORPHOLOGY YES; Platelet Count 107 K/mm3 (150-450); RBC Distribution Width CV 17.9 % (11.6-14.6); RBC Distribution Width SD 65.1 fl (35.1-43.9); Red Blood Count 3.06 M/mm3 (4.2-5.4); White Blood Count 3.1 K/mm3 (4.4-11.0)
[2023-11-22 07:46] LABS: Differential Indicated SCAN CRITERIA MET
[2023-11-22 07:54] LABS: Anion Gap 9 (5-15); BUN 36 mg/dL (7-18); BUN/Creat Ratio 7.1 RATIO (10-20); Chloride 100 mmol/L (98-107); EST Glomerular Filtration Rate 9 mL/min (>60); Est Glom Filt Rate - Afr Amer 11 mL/min (>60); Estimated Creatinine Clearance 12.66 ml/min; Glucose 79 mg/dL (74-106); Potassium 4.2 mmol/L (3.5-5.1); Sodium Level 137 mmol/L (136-145)
[2023-11-22 08:20] LABS: Anisocytosis RARE
--- NOTE | 2023-11-22 08:30 | WOUNDNOTE ---
Pt currently getting dialysis. plan is for left 5th toe amputation today per Dr Dennis.
[2023-11-22 08:33] LABS: Hemoglobin A1c 5.7 % (3.8-5.6)
[2023-11-22 08:40] LABS: International Normalized Ratio 1.2; Prothrombin Time (Protime)PT. 15.5 SECONDS (11.7-14.9)
--- NOTE | 2023-11-22 10:05 | AMP_PTH ---
[id number] LOC: MS3 U#:[id number] AGE/SX: 68/F ROOM: ND316 RE11/20/[address]: Dr. Reji Dennis DPM : 1955 BED: 1 DIS: 11/25/2023 SPEC #: [id number] RECD: 11/22/23 17:11 STATUS: CANELO RE #: [id number] JAREK: 11/22/23 10:[address]: Reji Dennis DEPT: SURGICAL PATHOLOGY RECD BY: Randi Antony ENTERED: 11/25/23 12:19 SP TYPE: Amputation OTHR DR: MD Dr. Velia Golden MD Dr. Douglas R Brown, DO Dr. Efewongbe Oleghe, MD Dr. Eric Turney, MD Dr. Jayaprakas Dasari, MD Dr. Loren Kirchner, MD Dr. Nicholas F Kotsonis, MD Dr. Robert Leininger, MD Barbara Tickton, COREY-Faith Kang, COREY-C EDUIN Miranda PA Rachael McGoron, PA Tissues: A - Toe, NOS B - Toe, NOS Procedures: Decalcification bone/plaque Surgery Specimen Level IV HEADER OPERATION: Amputation toe, 5th PRE-OP DIAGNOSIS: Gangrene, not elsewhere classified, diabetes mellitus with diabetic polyneuropathy TISSUE SUBMITTED: A- Left 5th toe, B- Clearance fragment left 5th toe MICROSCOPIC DIAGNOSIS A. Left 5th toe, amputation: Focal ulceration, acute inflammation and abscess formation. Underlying bone with reactive changes, negative for acute osteomyelitis. B. Clearance fragment 5th toe, biopsy: A piece of bone, negative for acute osteomyelitis. 11/28/2023 MICROSCOPIC DESCRIPTION Slides are reviewed. GROSS DESCRIPTION A. Received in fixative is one container labeled with the patient's name and designated Left 5th toe. The specimen consists of a portion of toe measuring 3.7 x 2.0 x 1.7cm. Dorsal surface of the toe shows a brownish-black area of ulceration. Ulcerated area measures 2.0 x 2.5cm. Nail appears atrophic. Central Supply Clerk sections are submitted in two cassettes as follows: 1- ulcerated area, 2- bone after decalcification. B. Received in fixative is one container labeled with the patient's name and designated Clearance fragment of left 5th toe. The specimen consists of a fragment of bone measuring 0.5 x 0.4 x 0.1cm. Central Supply Clerk sections are submitted in one cassette after decalcification. SJLesleymr 11/25/2023 TC:2 CPT:[id number]
[2023-11-22 11:09] LABS: GGTP 19 IU/L (0-60)
[2023-11-22 11:21] LABS: Bedside Glucose 69 mg/dL (74-106)
[2023-11-22 11:47] LABS: Bedside Glucose 71 mg/dL (74-106)
[2023-11-22] MEDS: 0.9% Normal Saline (500mL Bag) 500 ML 15 ML IV (12:12)
--- NOTE | 2023-11-22 12:34 | PCM.PRE.AN2 ---
ASA Classification* ASA Classification ASA Classification: 3 Assessment & Plan Anesthesia* Anesthesia Assessment Anesthesia Assessment: Discussed sedation and/or anesthesia options, risks, benefits, and alternatives with patient/parents/legal guardian/POA. Questions invited. The patient/parents/legal guardian/POA seems to understand and agrees to proceed with anesthesia plan. Reviewed the physical assessment, medical history, allergy history and patient home medications list prior to surgery/procedure/anesthetic and documented any changes. Performed airway and anesthesia risk assessments. Anesthesia Type Anesthesia Type: MAC Anesthesia Focused Assessment* Temperature: 97.8 F Pulse Rate: 70 Blood Pressure: 134/39 Respiratory Rate: 16 Pulse Ox: 99 Airway Assessment Mouth opens: >3 cm Mallampati Score: II Focused Labs Anesthesia Preop lab: CBC WBC 3.1 K/mm3 (4.4-11.0) L 11/22/23 07:20 RBC 3.06 M/mm3 (4.2-5.4) L 11/22/23 07:20 Hgb 9.2 g/dL (12.0-15.0) L 11/22/23 07:20 Hct 30.8 % (37-47) L 11/22/23 07:20 Plt Count 107 K/mm3 (150-450) L 11/22/23 07:20 CHEMISTRY Potassium 4.2 mmol/L (3.5-5.1) 11/22/23 07:20 Sodium 137 mmol/L (136-145) 11/22/23 07:20 Magnesium 2.1 mg/dL (1.6-2.6) 11/21/23 07:25 Phosphorus 4.0 mg/dL (2.5-4.9) 11/21/23 07:25 BUN 36 mg/dL (7-18) H 11/22/23 07:20 Creatinine 5.10 mg/dL (0.55-1.02) H 11/22/23 07:20 Glucose 79 mg/dL (74-106) 11/22/23 07:20 POC Glucose 71 mg/dL (74-106) L 11/22/23 11:26 TSH 12.000 uIU/mL (0.358-3.740) H 11/22/23 07:20 COAG PT 15.5 SECONDS (11.7-14.9) H 11/22/23 07:20 Pre-Assessment Diagnosis/Proposed Procedure Planned Operative Procedure(s): Toe Amputation left Anesthesia History 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 When Was Last Pacemaker Check QUESTION #4 FULL TEXT: You/Your Family Experience fever (hyperthermia) with Anesthesia Last Oral Intake Last Oral intake: Last Oral Intake NPO since 00:00 11/22/23 09:56 Meds taken in AM with sips of No 11/22/23 09:56 water? Meds patient instructed to take am of surgery PONV PONV - real estate sales associate: PONV - real estate sales associate Female HX of Motion Sickness HX of N/V After Surgery Non-Smoker Duration of Surgery greater than 60 minutes Number of Risk Factors PONV Score Height & Weight Height & Weight: Anesthesia: Height & Weight Height 5 ft 5 in 11/22/23 09:56 Weight: 99.2 kg 11/22/23 10:30 Body Mass Index (BMI) 36.3 11/22/23 10:30 Respiratory Assessment Respiratory Assessment - real estate sales associate: Respiratory Tract Infection Hx - real estate sales associate Hx Respiratory Tract Infection No 11/22/23 05:35 STOP Sleep Apnea STOP Sleep Apnea - real estate sales associate: STOP Sleep Apnea - real estate sales associate Hx Hypertension Yes 11/20/23 16:28 Hx Sleep Apnea Yes 11/20/23 16:28 CPAP No 11/20/23 16:28 BIPAP No 11/20/23 16:28 Do you snore loudly (louder than talking or can be heard Do you often feel tired/ fatigued/ sleepy during daytime? Has anyone observed you stop breathing during sleep? STOP Results Positive 11/20/23 16:28 QUESTION #5 FULL TEXT : Do you snore loudly (louder than talking or can be heard through closed doors)? 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 Specify any problems Hx of Preganancy in last 3 N/A 11/20/23 16:28 Months Nurse Filling Out Transfusion HFALK 11/20/23 16:28 & Questions: Date: 11/20/23 11/20/23 16:28 Time: 16:32 11/20/23 16:28 Patient unable to answer at this time (ie. confused, unrespo /Reproduction History /Reproductive History - real estate sales associate: /Reproductive Hx- real estate sales associate Hx Now No 11/22/23 05:35 Gestational Age (in weeks): EDC: Hx Hx Para Hx Section SAB No 11/22/23 05:35 Active Medications Active Medications: Current Medications Generic Name Dose Route Start Last Admin Trade Name Freq PRN Reason Stop Dose Admin Acetaminophen 1,000 mg 11/20/23 22:00 11/22/23 05:38 Acetaminophen 500 Mg Tablet PO 1,000 mg Q8 JERSNO Administration Al Hydroxide/Mg Hydroxide 30 ml 11/20/23 18:55 Mag Hydrox/Al Hydrox/Simeth 30 Ml Udc PO Q4H PRN PRN GI distress Albuterol Sulfate 2.5 mg 11/20/23 18:52 Albuterol 2.5 Mg/3 Ml Vial.Neb. INHALATION Q4H PRN Sob &/Or Wheezing Ascorbic Acid 1,000 mg 11/21/23 10:00 11/22/23 09:43 Ascorbic Acid 500 Mg Tablet PO Not Given DAILY JERSON Aspirin 81 mg 11/21/23 08:00 11/22/23 09:42 Aspirin E.C. 81 Mg Tablet PO Not Given DAILYCM JERSON Atorvastatin Calcium 10 mg 11/20/23 22:00 11/21/23 21:36 Atorvastatin Calcium 10 Mg Tablet PO 10 mg QHS JERSON Administration Bisacodyl 10 mg 11/20/23 18:06 Bisacodyl 10 Mg Suppository RC DAILY PRN constipation Calamine/Phenol 1 applic 11/20/23 22:00 11/22/23 09:42 Menthol/Lanolin/Calamine/Znox 113 Gm Tube TOPICAL Not Given BID JERSON Protocol Carvedilol 6.25 mg 11/20/23 22:00 11/22/23 09:42 Carvedilol 6.25 Mg Tablet PO Not Given BID [facility] Protocol Cholecalciferol 25 mcg 11/20/23 22:00 11/22/23 09:43 Cholecalciferol (Vit D3) 25 Mcg Tablet (1,000 Units) PO Not Given BID JERSON Dicyclomine HCl 20 mg 11/20/23 18:06 Dicyclomine 10 Mg Capsule PO Q6H PRN PRN abdominal discomfort Gabapentin 200 mg 11/20/23 22:00 11/21/23 21:31 Gabapentin 100 Mg Capsule PO 200 mg QHS JERSON Administration Hemodialysis Solution 6 bag 11/22/23 06:00 11/22/23 07:10 Pureflow B 2k Dialysis Soln 1 Bag PF 6 bag UD JERSON Administration Protocol Heparin Sodium (Porcine) 5,000 unit 11/20/23 22:00 11/22/23 05:39 Heparin Injection (Vial) 5,000 Unit/Ml Vial SC 5,000 unit Q8 JERSON Administration Cefepime HCl 1 gm/ Sodium 50 mls @ 100 mls/hr 11/21/23 12:00 11/21/23 14:49 Chloride IV Infused LUNCH JERSON Infusion Vancomycin IV-PHARMACY TO DOSE 500 mls @ 250 mls/hr 11/21/23 10:01 1 each/ Sodium Chloride IV X1 PRN Rx to Dose Protocol Vancomycin HCl 750 mg/ Sodium 265 mls @ 250 mls/hr 11/22/23 16:00 Chloride IV 11/22/23 17:03 X1 ONE Sodium Chloride 500 mls @ 0 mls/hr 11/22/23 12:15 11/22/23 12:12 IV 15 mls/hr .Q0M JERSON Administration KVO Insulin Glargine 12 unit 11/20/23 22:00 11/22/23 09:42 Insulin Glargine-Yfgn 100 Unit/Ml Pen SC Not Given BID JERSON Insulin Human Lispro 6 unit 11/21/23 08:00 11/21/23 16:47 Insulin Lispro 100 Unit/Ml Insuln.Pen SC 6 u TIDCM JERSON Administration Insulin Human Lispro 0 unit 11/21/23 22:00 11/22/23 11:06 Insulin Lispro 100 Unit/Ml Insuln.Pen SC Not Given ACHS [facility] Protocol Levothyroxine Sodium 88 mcg 11/21/23 06:00 11/22/23 05:38 Levothyroxine 88 Mcg Tablet PO 88 mcg DAILY@0600 JERSON Administration Metronidazole 500 mg 11/21/23 14:00 11/22/23 05:40 Metronidazole 500 Mg Tablet PO 500 mg TID [facility] Administration Midodrine 10 mg 11/20/23 18:51 Midodrine Hcl 5 Mg Tablet PO MOWEFR PRN hypotension Multivitamins 1 cap 11/21/23 08:00 11/22/23 09:42 Vitamin B Comp W-C [facility]aps[facility] Medication 30 mg 11/21/23 10:00 Apremilast [Otezla] PO DAILY [facility] Nystatin 1 applic 11/20/23 18:06 Nystatin Powder 15gm Bottle TOPICAL BID PRN PRN SKIN Protocol Oxycodone HCl 5 mg 11/20/23 18:46 11/22/23 02:44 Oxycodone 5 Mg Tablet PO 5 mg Q6H PRN PRN Administration Pain Score 4-5 Pantoprazole Sodium 40 mg 11/20/23 22:00 11/22/23 09:42 Pantoprazole Sodium 40 Mg Tablet PO Not Given BID [facility] Pramipexole Dihydrochloride 0.25 mg 11/20/23 22:00 11/22/23 05:38 Pramipexole Di-Hcl 0.25 Mg Tablet PO 0.25 mg TID [facility] Administration Sertraline HCl 100 mg 11/21/23 10:00 11/22/23 09:43 Sertraline 100 Mg Tablet PO Not Given DAILY JERSON Sevelamer Carbonate 1,600 mg 11/21/23 08:00 11/22/23 09:42 Sevelamer Carbonate 800 Mg Tablet PO Not Given TIDCM [facility] Sodium Chloride 10 - 40 ml 11/20/23 17:07 11/22/23 07:09 0.9% Saline Lock 10 Ml Syringe IV 20 ml UD PRN Administration SALINE FLUSH Sodium Chloride 1,000 ml 11/22/23 06:00 11/22/23 07:10 0.9% Normal Saline 1,000 Ml Iv.Soln. OPERA.SITE 1,000 ml X1 JERSON Administration Sodium Chloride 200 ml 11/22/23 06:00 0.9% Normal Saline 1,000 Ml Iv.Soln. IV X1 PRN to maintain SBP >90mmHg during Dialysis Sucralfate 1 gm 11/20/23 22:00 11/22/23 10:59 Sucralfate 1 Gm Tablet PO Not Given BID@1100,2200 [facility] Tacrolimus 0.5 mg 11/20/23 22:00 11/22/23 09:43 Tacrolimus 0.5 Mg Capsule PO Not Given BID [facility] Torsemide 60 mg 11/22/23 12:00 Torsemide 20 Mg Tablet PO DAILY [facility] Trazodone HCl 100 mg 11/20/23 22:00 11/21/23 21:38 Trazodone 100 Mg Tablet PO 100 mg QHS [facility] Administration Vancomycin Protocol 1 lab 11/22/23 10:00 11/22/23 09:43 Vancomycin Trough/Random Due 11/22/23 14:00 Not Given DAILY [facility] Vancomycin Protocol 1 lab 11/25/23 04:00 Vancomycin Trough/Random Due 11/25/23 08:00 DAILY [facility] Medical History Ankle sprain Contusion of right shoulder Contusion of right knee Cervical strain, acute History of subdural hematoma (post traumatic) Closed head injury Generalized weakness Ambulatory dysfunction Diabetes Dialysis patient Sleep apnea Easy bruising Restless legs Difficulty swallowing Dietary restriction History of ulceration Shortness of breath on exertion CPAP (continuous positive airway pressure) dependence Influenza A Sepsis Acute dyspnea Pneumonia Anxiety Depression Hypothyroidism Irregular heart beat Hypertension DVT (deep venous thrombosis) Multiple falls Uses wheelchair History of renal dialysis Osteoporosis Cirrhosis Non-smoker ESRD (end stage renal disease) Pancytopenia Chronic renal failure, stage 5 Infection involving suture with abscess Wears glasses Wears dentures Cancer Insulin dependent diabetes mellitus Anemia Hx of Krueger's palsy Back pain Gastric reflux COPD (chronic obstructive pulmonary disease) History of edema History of echocardiogram (~01/22/20) History of stress test (~12/07/19) Cardiology follow-up encounter [employer] History of uterine cancer Hypertension Anemia in chronic kidney disease Home Medications ?Medication ?Instructions ?Recorded ?Last Taken ?Type ascorbic acid (vitamin C) 500 mg 1,000 mg PO DAILY supplement 02/20/15 07/03/23 History chewable tablet cholecalciferol (vitamin D3) 25 1,000 unit PO BID supplement 02/20/15 07/03/23 History mcg (1,000 unit) tablet tacrolimus 1 mg capsule, 0.5 mg PO BID REJECTION 09/10/19 07/04/23 History immediate-release (Prograf) vitamin B complex 1 tablet PO DAILY SUPPLEMENT 09/10/19 07/03/23 History ropinirole 1 mg tablet 1 mg PO DAILY restless legs 05/23/20 07/04/23 History ropinirole 2 mg tablet,extended 2 mg PO QHS restless legs 06/10/20 07/03/23 History release 24 hr sevelamer carbonate 800 mg tablet 1,600 mg PO TIDCM kidney disease 06/10/20 07/03/23 History (Renvela) nitroglycerin 0.4 mg sublingual 0.4 mg sublingual Q5M PRN 04/29/21 Unknown Rx tablet Cardiac/Chest Pain #30 tabs biotin 1 mg capsule 1 mg PO BID supplement 08/11/21 07/03/23 History sertraline 50 mg tablet (Zoloft) 100 mg PO DAILY mood 08/11/21 07/04/23 History albuterol sulfate 90 mcg/actuation 2 puff IH Q4H PRN PRN Sob &/Or 10/25/21 Unknown Rx aerosol inhaler Wheezing 30 days #8.6 grams apremilast 30 mg tablet (Otezla) 30 mg PO DAILY 09/08/22 07/03/23 History gabapentin 100 mg capsule 200 mg PO QHS 12/31/22 07/03/23 History levothyroxine 88 mcg tablet 88 mcg PO DAILY 12/31/22 07/04/23 History sucralfate 1 gram tablet (Carafate) 1 g PO BID #30 tabs 12/31/22 Unknown Rx trazodone 100 mg tablet 100 mg PO QHS 12/31/22 07/03/23 History aspirin 81 mg tablet,delayed 81 mg PO DAILY 01/28/23 06/30/23 History release (Adult Aspirin Regimen) bisacodyl 10 mg rectal suppository 10 mg [place] DAILY PRN constipation 02/12/23 07/03/23 Rx (Dulcolax (bisacodyl)) #30 ea aluminum-magnesium hydroxide 225 30 ml PO Q4H PRN PRN GI distress 04/15/23 Unknown History mg-200 mg/5 mL oral suspension melatonin 10 mg tablet 10 mg PO QHS 04/15/23 07/03/23 History midodrine 10 mg tablet 10 mg PO MOWEFR PRN hypotension 04/15/23 Unknown History torsemide 60 mg tablet 60 mg PO DAILY 04/15/23 07/03/23 History carvedilol 12.5 mg tablet 6.25 mg PO BID 07/01/23 07/04/23 History nystatin 100,000 unit/gram topical 1 applic topical BID PRN PRN SKIN 07/01/23 Unknown History powder ([facility]) pantoprazole 40 mg tablet,delayed 40 mg PO BID 07/01/23 07/04/23 History release dicyclomine 10 mg capsule 20 mg (2 x 10 mg) PO Q6H PRN PRN 09/18/23 Unknown Rx abdominal discomfort #30 CAPSULES hydrocodone-acetaminophen 5-325mg 1 tab PO Q6H PRN PRN Pain Score 09/18/23 Unknown Rx 5mg-325mg 6-10 2 days #10 tabs insulin glargine-yfgn 100 unit/mL 12 unit (0.12 mL) subcut BID #0 mL 09/18/23 Unknown Rx (3 mL) subcutaneous pen insulin lispro 100 unit/mL 6 unit (0.06 mL) subcut TIDCM #0 mL 09/18/23 Unknown Rx subcutaneous pen (Humalog KwikPen (U-100) Insulin) menthol 0.44 %-zinc oxide 20.6 % 1 applic topical BID #0 grams 09/18/23 Unknown Rx topical ointment (Calmoseptine) atorvastatin 10 mg tablet 10 mg PO QHS 11/20/23 Unknown History Allergy/AdvReac Type Severity Reaction Status Date / Time amlodipine (From [facility]) Allergy Severe Hives Verified 09/26/23 00:50 ampicillin sodium (From Allergy Severe Hives Verified 09/26/23 00:50 Unasyn) buspirone HCl (From BuSpar) Allergy Severe Hives Verified 09/26/23 00:50 cefadroxil (From Duricef) Allergy Severe Hives Verified 09/26/23 00:50 lisinopril Allergy Severe Swelling Verified 09/26/23 00:50 naproxen Allergy Severe Hives Verified 09/26/23 00:50 niacin (From Niaspan Allergy Severe Hives Verified 09/26/23 00:50 Extended-Release) sulbactam sodium (From Allergy Severe Hives Verified 09/26/23 00:50 Unasyn) Sulfa (Sulfonamide Allergy Severe Hives Verified 09/26/23 00:50 Antibiotics) tramadol Allergy Mild Nausea Verified 09/26/23 00:50 cephalexin (From Keflex) Allergy Vomiting Verified 09/26/23 00:50 omeprazole AdvReac Severe Other Verified 09/26/23 00:50 losartan AdvReac Swelling Verified 09/26/23 00:50 Family History Mother Diabetes Anemia Father Hypertension LUNG/RESPIRATORY DISEASE Surgical History History of esophagogastroduodenoscopy (EGD) History of coronary artery stent placement History of cardiac catheterization History of appendectomy S/P arteriovenous (AV) fistula creation (~06/16/20) History of cholecystectomy History of left salpingo-oophorectomy History of radical hysterectomy History of left knee surgery History of ventral hernia repair History of liver transplant Social History housing: apartment current occupational status: disabled Smoking Status: Never smoker substance use type: does not use Review of Systems (Anesthesia) ROS Narrative System reviewed and no additional complaints, except as documented.
--- NOTE | 2023-11-22 13:01 | OP.PCM_ITS ---
Report of Operation Date of Procedure: 11/22/23 Pre-Operative Diagnosis: Gangrene left 5th toe Post-Operative Diagnosis: Same Surgery/Procedure Performed:: Left 5th toe amputation Surgeon: Reji Dennis special delivery carrier: None Type of Anesthesia: Local and MAC Specimen's removed: 1. Left 5th toe sent to pathology 2. Bone biopsy of distal left 5th toe sent to microbiology 3. Clearance fragment left 5th metatarsal head - sent to pathology and microbiology Estimated Blood Loss (mL): 3mL Description of Procedure: Indications: this is a 68 year old female with multiple medical problems including diabetes, has a gangrenous left 5th toe. Discussed options with her and she elected to proceed with left 5th toe amputation. Reviewed procedure, possible benefits vs risks, goals, expectations - advised her the risks include but not limited to delayed or nonhealing, need for further surgery, infection, blood clots, deformity, problems walking and with shoes, bleeding, CRPS, loss of limb, loss of life. The consent form was reviewed with her and she freely signed it. No guarantees were given nor implied, no warranties were given. Also of note patient is on IV antibiotics followed by Infectious Disease and also vascular surgery consultation was obtained pre operatively and ok to proceed with the toe amputation from vascular standpoint. Operative Procedure: The patient was brought down to the operating room and was placed on the operating room table in the supine position. Patient was carefully secured to the operating room table with a safety belt around her waist. The patient was already on IV antibiotics. The patient received MAC anesthesia per the anesthesia team. A well padded pneumatic tourniquet was applied around her left ankle but never used or inflated. A total of 10mL of 0.5% Bupivacaine plain was given as a local left foot 5th ray block after the overlying skin was cleansed with 70% Isopropyl alcohol. A timeout was performed and the patient was properly identified and the surgical plan was confirmed. Further attention was directed to the patient's left foot where there again was noted to be a gangrenous 5th toe - it was dry. Using a 15 blade an incision was made around the base of the 5th toe and the toe was excised at the level of the 5th metatarsal phalangeal joint. The tissue at this level appeared to be healthy and viable, but there is significantly less bleeding than normal consistent with peripheral vascular disease. The bone of the distal toe was noted to be nonviable and necrotic - a bone biopsy was obtained and sent to microbiology. The amputated toe was sent to pathology. The site was flushed out with copious amounts of normal saline solution, the metatarsal head of the 5th metatarsal was visualized and noted to be overall hard and viable - a small piece of the dorsal 5th metatarsal head was obtained using a bone cutting rongeur and sent to pathology and microbiology as a clearance fragment. The site was again flushed out with copious amounts of normal saline solution. The skin incision was reapproximated using 3-0 Prolene. A dressing of betadine solution, gauze, kerlix, and mery dressing was applied in noncompressive fashion. The patient tolerated the above procedure well and anesthesia well with no complications, post operative orders were placed and the patient was transported from the operating room to the recovery room with vital signs stable and in good condition. The patient will be followed as an inpatient. Grafts/Implants Used: None Complications None
[2023-11-22] MEDS: Bupivacaine Mpf 0.5% 30 ML VIAL (13:07)
[2023-11-22] MEDS: Cefepime HCl 1 GM in 0.9% Normal Saline (50mL MB+) 50 ML IV (13:07)
--- NOTE | 2023-11-22 14:01 | PCM.POST.ANE ---
Anesthesia: Postop Eval I Current Vital Signs Temperature: 98.2 F Pulse Rate: 82 Blood Pressure: 128/50 Respiratory Rate: 20 Pulse Ox: 97 Oxygen Delivery Method: Room Air Assessment Airway patent: Yes Spontaneous unlabored respirations: Yes Mental status: Awake nausea: No Vomiting: No Anesthesia Complication: No Fluid Hydration Crystalloid volume administer (ml): 100 Total IV fluid infused: 100 Progress Note Anesthesia document: Postop Eval 1 completed: Yes
--- NOTE | 2023-11-22 14:05 | RAD_ITS ---
STUDY: X-RAY - LEFT FOOT CLINICAL: Female, 68 years old. Postoperative evaluation. TECHNIQUE: 3 view(s) of the foot. COMPARISON: January 09, 2020 FINDINGS: Marked osteopenia. Stable inferior calcaneal spur. Stable moderate arthrosis of the midfoot, tarsometatarsal joints and metatarsophalangeal joints with marked hammertoe deformities. Resection of the phalanges of the fifth digit with soft tissue swelling at the resection site. RAD/Foot min 3 Views IMPRESSION: Osteopenia with resection of the phalanges of the fifth toe. No complicating features. Electronically Signed: Philip Deluna MD at 14:47 EDT ,
--- NOTE | 2023-11-22 14:15 | POSTOPAN2_ITS ---
Anesthesia Postop Eval I Sum Postop Eval Completion status Anesthesia document: Postop Eval 1 completed: Yes Anesthesia Postop Eval I Summary Anesthesia Postop Eval I Summary: Anesthesia Postop Eval I: Assessment Summary Airway patent Yes 11/22/23 14:02 BED [email or web address] Spontaneous unlabored Yes 11/22/23 14:02 BED [email or web address] respirations Mental status Awake 11/22/23 14:02 BED [email or web address] nausea No 11/22/23 14:02 BED [email or web address] Vomiting No 11/22/23 14:02 BED [email or web address] Anesthesia Postop Eval I: Fluid Summary Crystalloid volume administer 100 11/22/23 14:02 BED [email or web address] (ml) Colloids volume administered ( ml) Blood Product volume administered (ml) Total IV fluid infused 100 11/22/23 14:02 BED [email or web address] Anesthesia Postop Eval I: Summary Notes Anesthesia Complication No 11/22/23 14:02 BED [email or web address] Anesthesia Complication Comment: Post-operative progress note Anesthesia: Postop Eval II Evaluation Mental status: Awake Pain Level: 0 nausea: No Vomiting: No
--- NOTE | 2023-11-22 14:15 | PCM.POSTANE2 ---
Anesthesia Postop Eval I Sum Postop Eval Completion status Anesthesia document: Postop Eval 1 completed: Yes Anesthesia Postop Eval I Summary Anesthesia Postop Eval I Summary: Anesthesia Postop Eval I: Assessment Summary Airway patent Yes 11/22/23 14:02 PUBLISHING DIRECTOR.[email or web address] Spontaneous unlabored Yes 11/22/23 14:02 PUBLISHING DIRECTOR.JDEF respirations Mental status Awake 11/22/23 14:02 PUBLISHING DIRECTOR.JDEF nausea No 11/22/23 14:02 PUBLISHING DIRECTOR.JDEF Vomiting No 11/22/23 14:02 PUBLISHING DIRECTOR.JDEF Anesthesia Postop Eval I: Fluid Summary Crystalloid volume administer 100 11/22/23 14:02 PUBLISHING DIRECTOR.JDEF (ml) Colloids volume administered ( ml) Blood Product volume administered (ml) Total IV fluid infused 100 11/22/23 14:02 PUBLISHING DIRECTOR.JDEF Anesthesia Postop Eval I: Summary Notes Anesthesia Complication No 11/22/23 14:02 PUBLISHING DIRECTOR.JDEF Anesthesia Complication Comment: Post-operative progress note Anesthesia: Postop Eval II Evaluation Mental status: Awake Pain Level: 0 nausea: No Vomiting: No
[2023-11-22] MEDS: SEVELAMER CARBONATE 800 MG TABLET 1600 MG PO ×2 (14:42→16:33)
[2023-11-22] MEDS: Torsemide 20 MG Tablet 60 MG PO (14:48)
[2023-11-22 15:38] LABS: Bedside Glucose 70 mg/dL (74-106)
[2023-11-22] MEDS: Vancomycin HCl 750 MG in 0.9% Normal Saline (250mL Bag) 250 ML 250 MG IV (16:27)
--- NOTE | 2023-11-22 17:09 | PN.HOSP_ITS ---
Reason for Visit Reason for Visit: Diagnoses Type 2 diabetes mellitus with diabetic polyneuropathy (11/20/23) Hypokalemia (11/20/23) Gangrene, not elsewhere classified (11/20/23) End stage renal disease (11/20/23) Liver transplant status (11/20/23) Dependence on renal dialysis (11/20/23) Objective Data Objective Data Vital Signs: Vital Signs Temp Pulse Resp BP Pulse Ox O2 Del Method 97.6 F L 72 16 142/47 H 100 Room Air 11/22/23 14:55 11/22/23 14:55 11/22/23 14:55 11/22/23 14:55 11/22/23 14:55 11/22/23 14:55 Oxygen Delivery Method Room Air Weight: 218 lb 11.177 oz Body Mass Index (BMI) 36.3 Intake & Output: Intake and Output for Last 24 Hours 11/20/23 11/21/23 11/22/23 23:59 23:59 23:59 Intake Total 170 / 1130 2510.00 / 2510.00 115.75 / 115.75 Output Total 0 / 0 1940 / 1940 Balance 170 / 1130 2510.00 / 2510.00 -1824.25 / -1824.25 Lab / Micro Data 11/22/23 07:20 11/22/23 07:20 Labs: Laboratory Results - last 24 hr 11/21/23 07:25: GGT 19 11/21/23 21:46: POC Glucose 116 H 11/22/23 07:20: WBC 3.1 L, RBC 3.06 L, Hgb 9.2 L, Hct 30.8 L, MCV 100.7 H, MCH 30.1, MCHC 29.9 L, RDW Std Deviation 65.1 H, RDW Coeff of Tami 17.9 H, Plt Count 107 L, MPV 10.1, Immature Gran % (Auto) 2.900 H, Neut % (Auto) 69.6, Lymph % (Auto) 14.4 L, [place] % (Auto) 7.7, Eos % (Auto) 5.1 H, Baso % (Auto) 0.3, Absolute Neuts (auto) 2.2, Absolute Lymphs (auto) 0.45 L, Nucleated RBC % 0, Anisocytosis RARE, PT 15.5 H, INR 1.2, Sodium 137, Potassium 4.2, Chloride 100, Carbon Dioxide 28.0, Anion Gap 9, BUN 36 H, Creatinine 5.10 H, Estim Creat Clear Calc 12.66, Est GFR (MDRD) Af Amer 11 L, Est GFR (MDRD) Non-Af 9 L, B UN/Creatinine Ratio 7.1 L, Glucose 79, Hemoglobin A1c 5.7 H, Calcium 9.0, TSH 12.000 H 11/22/23 11:03: POC Glucose 69 L 11/22/23 11:26: POC Glucose 71 L 11/22/23 15:19: POC Glucose 70 L Micro: Microbiology 11/22/23 Unknown Bone - 5th Toe Gram Stain - Final 11/22/23 Unknown Tissue - 5th Toe Gram Stain - Final Radiography Diagnostic Testing: Radiology Impression Extremity Arterial Study 11/20/23 17:00 Interpretation Summary Right TRU 1.19, normal. Doppler/PVR waveforms of the right leg normal at rest. TBI diminished, pedal/digit disease vs spasm. Left TRU 1.64, normal. Doppler/PVR waveforms of the left leg normal at rest. TBI diminished, pedal/digit disease vs spasm. Ordering Physician: Reji Dennis Referring Physician: Velia Archuleta Performed By: Christine Shen, T Abdomen/Pelvis CTA 11/21/23 18:31 IMPRESSION: Three-vessel runoff in both lower extremities although there is evidence of focal tight stenosis throughout the course of the right peroneal artery as well as the left peroneal and left anterior tibial arteries. Electronically Signed: Naren Boston MD at 10:15 EDT , Foot X-Ray 11/22/23 14:05 IMPRESSION: Osteopenia with resection of the phalanges of the fifth toe. No complicating features. Electronically Signed: Philip Deluna MD at 14:47 EDT , Physical Exam Narrative Seen and examined. Patient is going for surgery today. Gangrene still looks dry. Patient was admitted by director of sustainability for left fifth toe wound gangrene. She injured left fifth toe little over a week ago and culture grew multiple organisms. She has neuropathy and does not have pain. She was taking Augmentin 500 mg/125 daily as outpatient. Physical exam: General: Alert, Oriented x3, Cooperative, BMI 36.4 kg square meter HEENT: Atraumatic, PERRLA, EOMI, Normocephalic Oral: No Gingival or Mucosal Lesions/ Ulcerations Neck: Supple, No JVD, Negative Carotid Bruits Chest wall/Lungs: Air entry diminished in bilateral lung bases. No crepitation/rhonchi Cardiovascular: Regular rate, Regular Rhythm, Normal S1, Normal S2, systolic murmur over the Abdomen: Status post liver transplant, surgical scar. Bowel Sounds Present, Soft, Non Tender, Non-Distended : Minimal urine once a day. On HD MWF no dysuria. No renal angle tenderness. No suprapubic tenderness. Extremities: No edema, Capillary Refill Less than 3 Seconds Skin: Dry gangrene of left fifth toe. It is wrinkled Musculoskeletal: No Tenderness to Palpation of Joints or Extremities. ROM restricted over knees and hips, degenerative arthritis, chronic Neurological: Cranial nerves II-XII grossly intact, DTR 2+/4. No touch or pressure sensation at ankle level below Psych/Mental Status: Normal Affect, Appropriate. Assessment & Plan Assessment/Plan (1) Gangrene of left foot: (2) Hypokalemia: PLAN: Plan This is a 68-year-old female with multiple comorbidities admitted for left fifth toe dry gangrene from podiatry office. 1. Dry gangrene with infection of the fifth digit on left foot: Patient admitted in ICU as MedSurg status and podiatry service -Recent cultures were polymicrobial with Enterococcus, Enterobacter, Klebsiella, MRSA - cefepime 1 g x 1 dose and then dose 500 mg after dialysis on Saturday and Saturday -Vancomycin with pharmacy to dose -Consult infectious disease PT and OT 11/21: Patient had left fifth toe amputation under local and MAC anesthesia. The specimen sent for biopsy. Continue IV antibiotic. Seen by ID. On vancomycin and cefepime and p.o. Flagyl. Hypokalemia -P.o. potassium replacement 40 mill equivalents On HD. Therefore no replacement aggressive. Repeat labs pending 11/21 potassium level normal. 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 Patient was seen by GI office in October 2023. Patient was told by marketing proposal coordinator and they found a spot in the liver. It is being managed and followed by [facility] marketing proposal coordinator. Last CT scan abdomen/pelvis in May 2023 did not show any focal lesion in the liver but hepatic steatosis. Splenomegaly. Normal pancreas. -Continue tacrolimus Recent history of C. difficile: She had positive C. difficile antigen and PCR in June 2023 and was negative for toxin. Abdominal pain and diarrhea has improved and is. CT shows diffuse thickening of the colon in May 2023. Diabetic neuropathy -Continue home gabapentin Essential hypertension/hyperlipidemia -Continue home carvedilol -Continue home atorvastatin GERD/history of GI bleed -Continue home Protonix -Continue home Carafate DM-2 -Continue home basal insulin 12 units twice daily -Continue prandial insulin 6 units 3 times daily with meals -SSI -Accu-Cheks as ordered -Will likely need basal insulin adjustment perioperatively Chronic anemia secondary to chronic renal disease/liver disease -Hemoglobin is stable at 10.2 -Monitor Obesity -Complicates treatment, prognosis, outcomes -BMI 36.4 DVT prophylaxis -Subcu heparin 3 times daily Charges/Coding Visit Charges Inpatient E&M: 62495 Subs Hosp L2
--- NOTE | 2023-11-22 17:39 | PN.SURG_ITS ---
Subjective Subjective Patient resting comfortably in bed following her surgery today. She reports no significant pain into the foot. Discussed with Dr. Dennis, he noted relatively minimal bleeding at the potation site. CTA was reviewed, she has some generalized atherosclerosis but no focal stenoses. Objective Data Objective Data Vital Signs: Vital Signs Temp Pulse Resp BP Pulse Ox O2 Del Method 97.6 F L 72 16 142/47 H 100 Room Air 11/22/23 14:55 11/22/23 14:55 11/22/23 14:55 11/22/23 14:55 11/22/23 14:55 11/22/23 14:55 Oxygen Delivery Method Room Air Weight: 218 lb 11.177 oz Body Mass Index (BMI) 36.3 Intake & Output: Intake and Output for Last 24 Hours 11/20/23 11/21/23 11/22/23 23:59 23:59 23:59 Intake Total 170 / 1130 2510.00 / 2510.00 115.75 / 115.75 Output Total 0 / 0 1940 / 1940 Balance 170 / 1130 2510.00 / 2510.00 -1824.25 / -1824.25 Lab / Micro Data 11/22/23 07:20 11/22/23 07:20 Labs: Laboratory Results - last 24 hr 11/21/23 07:25: GGT 19 11/21/23 21:46: POC Glucose 116 H 11/22/23 07:20: WBC 3.1 L, RBC 3.06 L, Hgb 9.2 L, Hct 30.8 L, MCV 100.7 H, MCH 30.1, MCHC 29.9 L, RDW Std Deviation 65.1 H, RDW Coeff of Tami 17.9 H, Plt Count 107 L, MPV 10.1, Immature Gran % (Auto) 2.900 H, Neut % (Auto) 69.6, Lymph % (Auto) 14.4 L, [place] % (Auto) 7.7, Eos % (Auto) 5.1 H, Baso % (Auto) 0.3, Absolute Neuts (auto) 2.2, Absolute Lymphs (auto) 0.45 L, Nucleated RBC % 0, Anisocytosis RARE, PT 15.5 H, INR 1.2, Sodium 137, Potassium 4.2, Chloride 100, Carbon Dioxide 28.0, Anion Gap 9, BUN 36 H, Creatinine 5.10 H, Estim Creat Clear Calc 12.66, Est GFR (MDRD) Af Amer 11 L, Est GFR (MDRD) Non-Af 9 L, B UN/Creatinine Ratio 7.1 L, Glucose 79, Hemoglobin A1c 5.7 H, Calcium 9.0, TSH 12.000 H 11/22/23 11:03: POC Glucose 69 L 11/22/23 11:26: POC Glucose 71 L 11/22/23 15:19: POC Glucose 70 L Micro: Microbiology 11/22/23 Unknown Bone - 5th Toe Gram Stain - Final 11/22/23 Unknown Tissue - 5th Toe Gram Stain - Final Radiography Diagnostic Testing: Radiology Impression Extremity Arterial Study 11/20/23 17:00 Interpretation Summary Right TRU 1.19, normal. Doppler/PVR waveforms of the right leg normal at rest. TBI diminished, pedal/digit disease vs spasm. Left TRU 1.64, normal. Doppler/PVR waveforms of the left leg normal at rest. TBI diminished, pedal/digit disease vs spasm. Ordering Physician: Reji Dennis Referring Physician: Velia Archuleta Performed By: Christine Shen, T Abdomen/Pelvis CTA 11/21/23 18:31 IMPRESSION: Three-vessel runoff in both lower extremities although there is evidence of focal tight stenosis throughout the course of the right peroneal artery as well as the left peroneal and left anterior tibial arteries. Electronically Signed: Naren Boston MD at 10:15 EDT , Foot X-Ray 11/22/23 14:05 IMPRESSION: Osteopenia with resection of the phalanges of the fifth toe. No complicating features. Electronically Signed: Philip Deluna MD at 14:47 EDT , Physical Exam Const alert, oriented x3, no apparent distress and healthy appearing General Appearance: cooperative and comfortable HEENT normocephalic, head/scalp atraumatic, hearing grossly normal bilaterally, external ears normal and external nose normal Eyes EOMs intact bilaterally General Eye: normal appearance of both eyes Neck General: normal visual inspection and trachea midline Resp normal respiratory effort, normal air movement, no retractions and no use of accessory muscles Effort and Inspection: able to speak in complete sentences Cardio regular rate and regular rhythm Extremity Extremity Narrative: Left foot with postop dressing in place, clean and dry. Peripheral Pulses: Yes femoral pulses present, popliteal pulses present, posterior tibial pulses present and dorsalis pedis pulses present Neuro oriented x3, CN's II-XII intact bilaterally, moves all extremities and no focal motor deficits Psych mental status grossly normal Appearance: grossly normal Attitude: calm and engaged Activity / Motor Behavior: appropriate eye contact Speech: normal speech Mood & Affect: euthymic mood Judgement: judgement good Assessment & Plan Assessment/Plan (1) Gangrene of toe of left foot: PLAN: Plan Arterial study did suggest noncompressible vessels in the right leg but with triphasic waveforms throughout which suggest good inflow and palpable DP pulse on exam. CTA seemed consistent with this, some generalized atherosclerosis but no focal stenoses or occlusions. Lack of bleeding at the amputation site is more likely secondary to microvascular and pedal arch disease. Discussed with the patient that she may be a candidate for pedal arch intervention or AMAYA flow study through [facility]. She is amenable to outpatient referral to for consideration of these possible interventions. Otherwise, hyperbaric oxygen therapy may be of some benefit. Also recommend continued maximal medical therapy with aspirin 81 mg daily. If tolerated, increasing to a high intensity dose of atorvastatin at least 40 mg daily may be of benefit. Charges/Coding Visit Charges Inpatient E&M: 84113 Subs Hosp L1
[2023-11-22] MEDS: Carvedilol 6.25 MG Tablet PO (20:58)
[2023-11-22] MEDS: Menthol/Lanolin/Calamine/Znox 113 GM Tube 1 APPLIC TOPICAL (20:58)
[2023-11-22] MEDS: Sucralfate 1 GM Tablet PO (20:58)
[2023-11-22] MEDS: traZODone 100 MG Tablet PO (20:59)
[2023-11-22] MEDS: Tacrolimus 0.5 MG Capsule PO (21:00)
[2023-11-22] MEDS: Insulin Glargine-YFGN 100 UNIT/ML Pen 12 UNIT SC (21:00)
[2023-11-22] MEDS: Gabapentin 100 MG Capsule 200 MG PO (21:00)
[2023-11-22] MEDS: Pantoprazole Sodium 40 MG Tablet PO (21:00)
[2023-11-22] MEDS: Atorvastatin Calcium 10 MG Tablet PO (21:00)
[2023-11-22 21:01] LABS: Bedside Glucose 140 mg/dL (74-106)
[2023-11-22] MEDS: Cholecalciferol (VIT D3) 25 MCG TABLET (1,000 UNITS) PO (21:04)
[2023-11-23 03:45] VITALS: BP 123/51; PULSE 75; RESP 18; TEMP 36.6; O2SAT 99
[2023-11-23] MEDS: metroNIDAZOLE 500 MG Tablet PO ×3 (05:06→21:47)
[2023-11-23] MEDS: Pramipexole Di-HCl 0.25 MG Tablet PO ×3 (05:06→21:49)
[2023-11-23] MEDS: Acetaminophen 500 MG Tablet 1000 MG PO ×3 (05:07→21:50)
[2023-11-23] MEDS: oxyCODONE 5 MG Tablet PO ×3 (05:07→23:33)
[2023-11-23] MEDS: Levothyroxine 88 MCG Tablet PO (05:07)
[2023-11-23 07:14] LABS: Bedside Glucose 90 mg/dL (74-106)
[2023-11-23 07:48] LABS: Absolute Lymphocyte Count 0.36 X10^3/uL (0.83-4.51); Absolute Neutrophil Count 2.4 X10^3/uL (2.0-7.7); Basophil# 0.01 X10^3/uL; Basophil% 0.3 % (0-1); Eosinophil# 0.14 X10^3/uL; Eosinophils% 4.4 % (0-5); Hematocrit 33.2 % (37-47); Hemoglobin 9.8 g/dL (12.0-15.0); Lymphocyte # 0.36 X10^3/ul (0.83-4.51); Lymphocyte % 11.3 % (19-41); Mean Corp Hgb Conc 29.5 g/dL (32-36); Mean Corpuscular Hgb 30.3 pg (27.0-32.0); Mean Corpuscular Volume 102.8 fL (81-99); Mean Platelet Vol. 10.1 fl (6.2-12.0); Monocyte# 0.22 X10^3/uL; Monocyte% 6.9 % (0-10); NRBC Flagged by Analyzer 0 % (0-5); Neutrophil # 2.41 X10^3/uL (2.7-7.7); Neutrophil % 75.2 % (47-70); POSITIVE DIFFERENTIAL YES; POSITIVE MORPHOLOGY YES; Platelet Count 100 K/mm3 (150-450); RBC Distribution Width CV 18.3 % (11.6-14.6); RBC Distribution Width SD 68.8 fl (35.1-43.9); Red Blood Count 3.23 M/mm3 (4.2-5.4); White Blood Count 3.2 K/mm3 (4.4-11.0)
[2023-11-23 07:49] LABS: Differential Indicated SCAN CRITERIA MET
[2023-11-23 08:11] LABS: Anisocytosis 2+
[2023-11-23 08:22] LABS: International Normalized Ratio 1.3; Prothrombin Time (Protime)PT. 15.8 SECONDS (11.7-14.9)
[2023-11-23] MEDS: SEVELAMER CARBONATE 800 MG TABLET 1600 MG PO ×3 (08:31→16:40)
[2023-11-23] MEDS: Ascorbic Acid 500 MG Tablet 1000 MG PO (08:32)
[2023-11-23] MEDS: Pantoprazole Sodium 40 MG Tablet PO ×2 (08:32→21:49)
[2023-11-23] MEDS: Sertraline 100 MG Tablet PO (08:33)
[2023-11-23] MEDS: Vitamin B Comp W-C Capsule 1 CAP PO (08:33)
[2023-11-23] MEDS: Cholecalciferol (VIT D3) 25 MCG TABLET (1,000 UNITS) PO ×2 (08:33→21:50)
[2023-11-23] MEDS: Aspirin E.C. 81 MG Tablet PO (08:34)
[2023-11-23] MEDS: Tacrolimus 0.5 MG Capsule PO ×2 (08:34→21:50)
[2023-11-23] MEDS: Torsemide 20 MG Tablet 60 MG PO (08:37)
[2023-11-23] MEDS: Carvedilol 6.25 MG Tablet PO ×2 (08:37→21:47)
[2023-11-23] MEDS: Insulin Lispro 100 UNIT/ML INSULN.PEN 6 UNIT SC ×2 (08:48→16:39)
[2023-11-23 09:03] LABS: Anion Gap 6 (5-15); BUN 35 mg/dL (7-18); BUN/Creat Ratio 7.2 RATIO (10-20); Calcium,Total 8.9 mg/dL (8.5-10.1); Chloride 100 mmol/L (98-107); Creatinine, Serum 4.88 mg/dL (0.55-1.02); EST Glomerular Filtration Rate 10 mL/min (>60); Est Glom Filt Rate - Afr Amer 11 mL/min (>60); Estimated Creatinine Clearance 13.23 ml/min; Glucose 94 mg/dL (74-106); Potassium 4.4 mmol/L (3.5-5.1); Sodium Level 135 mmol/L (136-145)
--- NOTE | 2023-11-23 09:57 | PCM.PROGNOTE ---
Subjective Subjective Patient was seen this morning for follow up on left foot. She is resting sitting up in chair, she relates she feels good and doing well, relates there was some bleeding through the foot bandage and had it changed last night. Objective Data Objective Data Vital Signs: Vital Signs Temp Pulse Resp BP Pulse Ox O2 Del Method 97.8 F 75 18 123/51 H 99 Room Air 11/23/23 03:45 11/23/23 03:45 11/23/23 03:45 11/23/23 03:45 11/23/23 03:45 11/23/23 08:11 Oxygen Delivery Method Room Air Weight: 99.2 kg Body Mass Index (BMI) 36.3 Intake & Output: Intake and Output for Last 24 Hours 11/21/23 11/22/23 11/23/23 23:59 23:59 23:59 Intake Total 2510.00 / 2510.00 380.75 / 520.75 390 / 390 Output Total 0 / 0 1940 / 1940 Balance 2510.00 / 2510.00 -1559.25 / -1419.25 390 / 390 Lab / Micro Data 11/23/23 07:28 11/23/23 07:28 Labs: Laboratory Results - last 24 hr 11/21/23 07:25: GGT 19 11/22/23 11:03: POC Glucose 69 L 11/22/23 11:26: POC Glucose 71 L 11/22/23 15:19: POC Glucose 70 L 11/22/23 20:42: POC Glucose 140 H 11/23/23 06:54: POC Glucose 90 11/23/23 07:28: WBC 3.2 L, RBC 3.23 L, Hgb 9.8 L, Hct 33.2 L, MCV 102.8 H, MCH 30.3, MCHC 29.5 L, RDW Std Deviation 68.8 H, RDW Coeff of Tami 18.3 H, Plt Count 100 L, MPV 10.1, Immature Gran % (Auto) 1.900 H, Neut % (Auto) 75.2 H, Lymph % (Auto) 11.3 L, [place] % (Auto) 6.9, Eos % (Auto) 4.4, Baso % (Auto) 0.3, Absolute Neuts (auto) 2.4, Absolute Lymphs (auto) 0.36 L, Nucleated RBC % 0, Anisocytosis 2+, PT 15.8 H, INR 1.3, Sodium 135 L, Potassium 4.4, Chloride 100, Carbon Dioxide 29.0, Anion Gap 6, BUN 35 H, Creatinine 4.88 H, Estim Creat Clear Calc 13.23, Est GFR (MDRD) Af Amer 11 L, Est GFR (MDRD) Non-Af 10 L, BUN/Creatinine Ratio 7.2 L, Glucose 94, Calcium 8.9 Micro: Microbiology 11/22/23 Unknown Bone - 5th Toe Gram Stain - Final 11/22/23 Unknown Tissue - 5th Toe Gram Stain - Final Radiography Diagnostic Testing: Radiology Impression Abdomen/Pelvis CTA 11/21/23 18:31 IMPRESSION: Three-vessel runoff in both lower extremities although there is evidence of focal tight stenosis throughout the course of the right peroneal artery as well as the left peroneal and left anterior tibial arteries. Electronically Signed: Naren Boston MD at 10:15 EDT , Foot X-Ray 11/22/23 14:05 IMPRESSION: Osteopenia with resection of the phalanges of the fifth toe. No complicating features. Electronically Signed: Philip Deluna MD at 14:47 EDT , Physical Exam Const alert, oriented x3 and no apparent distress Constitutional Narrative: s/p left 5th toe amputation, sutures intact with skin edges well coapted with no necrosis, no fluctuance, no crepitus,no visible abscess - tissues are healthy and viable with no evidence of acute ischemia left foot. Slight erythema to surgical site, otherwise no erythema, no drainage left foot. No evidence of DVT bilateral. Assessment & Plan Assessment/Plan (1) Gangrene, not elsewhere classified: (2) Diabetes mellitus with diabetic polyneuropathy: PLAN: Plan Patient admitted for left 5th toe gangrene, s/p left 5th toe amputation Noninvasive vascular studies were ordered. Vascular surgery was consulted and following - no vascular intervention planned. Minimal bleeding during surgery but tissues viable and healing appropriately at this time Ok to put weight on left heel for transitions Patient on antibiotics Vanc/Cefepime and Flagyl - ID on consult Hospital medicine and Nephrology consulted - appreciated assistance DVT Prophylaxis - SCDs, patient also on Heparin Also small erosion right 5th toe - stable - keep offloaded at all times - cut out shoe to offload site
[2023-11-23 10:00] VITALS: BP 126/67; PULSE 72; RESP 16; TEMP 36.6; O2SAT 100
[2023-11-23] MEDS: Menthol/Lanolin/Calamine/Znox 113 GM Tube 1 APPLIC TOPICAL ×2 (11:40→21:45)
[2023-11-23] MEDS: Sucralfate 1 GM Tablet PO ×2 (11:41→21:46)
[2023-11-23] MEDS: 0.9% Saline Lock 10 ML Syringe IV (11:51)
[2023-11-23] MEDS: Cefepime HCl 1 GM in 0.9% Normal Saline (50mL MB+) 50 ML IV (11:55)
[2023-11-23 12:43] LABS: Bedside Glucose 57 mg/dL (74-106)
[2023-11-23 15:18] LABS: Bedside Glucose 114 mg/dL (74-106)
[2023-11-23 15:22] VITALS: BP 122/47; PULSE 81; RESP 16; TEMP 36.6; O2SAT 100
[2023-11-23] MEDS: Heparin Injection (Vial) 5,000 UNIT/ML VIAL 5000 UNIT SC ×2 (15:32→21:47)
--- NOTE | 2023-11-23 16:31 | PCM.PN.REN ---
Subjective Subjective Follow-up end-stage renal disease No complaints Overall feels well Tolerated dialysis well yesterday Objective Data Objective Data Vital Signs: Vital Signs Temp Pulse Resp BP Pulse Ox O2 Del Method 97.9 F 81 16 122/47 H 100 Room Air 11/23/23 15:22 11/23/23 15:22 11/23/23 15:22 11/23/23 15:22 11/23/23 15:22 11/23/23 15:22 Oxygen Delivery Method Room Air Weight: 99.2 kg Body Mass Index (BMI) 36.3 Intake & Output: Intake and Output for Last 24 Hours 11/21/23 11/22/23 11/23/23 23:59 23:59 23:59 Intake Total 2510.00 / 2510.00 380.75 / 520.75 560 / 560 Output Total 0 / 0 1940 / 1940 Balance 2510.00 / 2510.00 -1559.25 / -1419.25 560 / 560 Lab / Micro Data 11/23/23 07:28 11/23/23 07:28 Labs: Laboratory Results - last 24 hr 11/22/23 20:42: POC Glucose 140 H 11/23/23 06:54: POC Glucose 90 11/23/23 07:28: WBC 3.2 L, RBC 3.23 L, Hgb 9.8 L, Hct 33.2 L, MCV 102.8 H, MCH 30.3, MCHC 29.5 L, RDW Std Deviation 68.8 H, RDW Coeff of Tami 18.3 H, Plt Count 100 L, MPV 10.1, Immature Gran % (Auto) 1.900 H, Neut % (Auto) 75.2 H, Lymph % (Auto) 11.3 L, [place] % (Auto) 6.9, Eos % (Auto) 4.4, Baso % (Auto) 0.3, Absolute Neuts (auto) 2.4, Absolute Lymphs (auto) 0.36 L, Nucleated RBC % 0, Anisocytosis 2+, PT 15.8 H, INR 1.3, Sodium 135 L, Potassium 4.4, Chloride 100, Carbon Dioxide 29.0, Anion Gap 6, BUN 35 H, Creatinine 4.88 H, Estim Creat Clear Calc 13.23, Est GFR (MDRD) Af Amer 11 L, Est GFR (MDRD) Non-Af 10 L, BUN/Creatinine Ratio 7.2 L, Glucose 94, Calcium 8.9 11/23/23 11:37: POC Glucose 57 L 11/23/23 14:59: POC Glucose 114 H Micro: Microbiology 11/22/23 Unknown Bone - 5th Toe Gram Stain - Final 11/22/23 Unknown Bone - 5th Toe Wound Culture - Preliminary Mixed Gram Pos & Gram Neg Org 11/22/23 Unknown Tissue - 5th Toe Gram Stain - Final Physical Exam Narrative Alert awake oriented x 3 no obvious distress no pallor no icterus no JVD s1s2 no murmurs lungs clear abdomen soft no organomegaly no edema Assessment & Plan Assessment/Plan (1) End stage renal disease on dialysis: PLAN: ESRD. On hemodialysis Saturday, Saturday, Saturday. Fistula -Next Allises on Saturday -Volume electrolytes are stable. Anemia. Hemoglobin is under goal. Gets long-acting erythropoietin with dialysis Left toe gangrene. -Being followed by vascular and podiatry
[2023-11-23 17:00] LABS: Bedside Glucose 139 mg/dL (74-106)
[2023-11-23 21:43] VITALS: BP 119/53; PULSE 80; RESP 18; TEMP 36.6; O2SAT 100
[2023-11-23] MEDS: traZODone 100 MG Tablet PO (21:47)
[2023-11-23] MEDS: Atorvastatin Calcium 10 MG Tablet PO (21:48)
[2023-11-23] MEDS: Insulin Glargine-YFGN 100 UNIT/ML Pen 12 UNIT SC (21:48)
[2023-11-23] MEDS: Gabapentin 100 MG Capsule 200 MG PO (21:49)
[2023-11-23 21:54] LABS: Bedside Glucose 158 mg/dL (74-106)
[2023-11-24 04:12] VITALS: BP 136/63; PULSE 72; RESP 16; TEMP 36.7; O2SAT 100
[2023-11-24] MEDS: metroNIDAZOLE 500 MG Tablet PO ×3 (04:22→20:51)
[2023-11-24] MEDS: DiphenhydrAMINE 50 MG/ML Syringe 25 MG IV ×2 (04:23→20:54)
[2023-11-24] MEDS: Levothyroxine 88 MCG Tablet PO (04:23)
[2023-11-24] MEDS: Acetaminophen 500 MG Tablet 1000 MG PO ×3 (04:23→20:53)
[2023-11-24] MEDS: Heparin Injection (Vial) 5,000 UNIT/ML VIAL 5000 UNIT SC ×3 (04:23→20:51)
[2023-11-24] MEDS: Pramipexole Di-HCl 0.25 MG Tablet PO ×3 (04:23→20:52)
[2023-11-24 07:19] LABS: Bedside Glucose 57 mg/dL (74-106)
[2023-11-24 07:19] LABS: Bedside Glucose 66 mg/dL (74-106)
[2023-11-24 07:40] LABS: Bedside Glucose 82 mg/dL (74-106)
[2023-11-24 07:50] LABS: Absolute Lymphocyte Count 0.52 X10^3/uL (0.83-4.51); Absolute Neutrophil Count 2.1 X10^3/uL (2.0-7.7); Basophil# 0.01 X10^3/uL; Basophil% 0.3 % (0-1); Eosinophil# 0.14 X10^3/uL; Eosinophils% 4.5 % (0-5); Hematocrit 35.3 % (37-47); Hemoglobin 10.1 g/dL (12.0-15.0); Lymphocyte # 0.52 X10^3/ul (0.83-4.51); Lymphocyte % 16.7 % (19-41); Mean Corp Hgb Conc 28.6 g/dL (32-36); Mean Corpuscular Hgb 29.6 pg (27.0-32.0); Mean Corpuscular Volume 103.5 fL (81-99); Mean Platelet Vol. 10.8 fl (6.2-12.0); Monocyte% 9.6 % (0-10); NRBC Flagged by Analyzer 0 % (0-5); Neutrophil # 2.09 X10^3/uL (2.7-7.7); Neutrophil % 67.3 % (47-70); POSITIVE DIFFERENTIAL YES; POSITIVE MORPHOLOGY YES; Platelet Count 107 K/mm3 (150-450); RBC Distribution Width CV 18.4 % (11.6-14.6); RBC Distribution Width SD 69.3 fl (35.1-43.9); Red Blood Count 3.41 M/mm3 (4.2-5.4); White Blood Count 3.1 K/mm3 (4.4-11.0)
[2023-11-24 07:52] LABS: Differential Indicated SCAN CRITERIA MET
[2023-11-24 07:58] LABS: Anisocytosis 1+
[2023-11-24 08:00] VITALS: BP 121/55; PULSE 71; RESP 18; TEMP 36.4; O2SAT 94
[2023-11-24 08:05] LABS: Anion Gap 5 (5-15); BUN 45 mg/dL (7-18); BUN/Creat Ratio 7.7 RATIO (10-20); Calcium,Total 9.1 mg/dL (8.5-10.1); Chloride 101 mmol/L (98-107); Creatinine, Serum 5.88 mg/dL (0.55-1.02); EST Glomerular Filtration Rate 8 mL/min (>60); Est Glom Filt Rate - Afr Amer 9 mL/min (>60); Estimated Creatinine Clearance 10.98 ml/min; Glucose 78 mg/dL (74-106); Potassium 4.9 mmol/L (3.5-5.1); Sodium Level 135 mmol/L (136-145)
[2023-11-24] MEDS: Sertraline 100 MG Tablet PO (08:05)
[2023-11-24 08:06] LABS: International Normalized Ratio 1.2; Prothrombin Time (Protime)PT. 15.5 SECONDS (11.7-14.9)
[2023-11-24] MEDS: Ascorbic Acid 500 MG Tablet 1000 MG PO (08:06)
[2023-11-24] MEDS: SEVELAMER CARBONATE 800 MG TABLET 1600 MG PO ×3 (08:06→17:19)
[2023-11-24] MEDS: Tacrolimus 0.5 MG Capsule PO ×2 (08:06→20:53)
[2023-11-24] MEDS: Vitamin B Comp W-C Capsule 1 CAP PO (08:06)
[2023-11-24] MEDS: Pantoprazole Sodium 40 MG Tablet PO ×2 (08:06→20:53)
[2023-11-24] MEDS: Carvedilol 6.25 MG Tablet PO ×2 (08:06→20:50)
[2023-11-24] MEDS: Aspirin E.C. 81 MG Tablet PO (08:06)
[2023-11-24] MEDS: Cholecalciferol (VIT D3) 25 MCG TABLET (1,000 UNITS) PO ×2 (08:06→20:54)
[2023-11-24] MEDS: Torsemide 20 MG Tablet 60 MG PO (08:07)
[2023-11-24] MEDS: Menthol/Lanolin/Calamine/Znox 113 GM Tube 1 APPLIC TOPICAL ×2 (08:10→20:50)
[2023-11-24 08:32] LABS: Bedside Glucose 134 mg/dL (74-106)
[2023-11-24] MEDS: Insulin Glargine-YFGN 100 UNIT/ML Pen 12 UNIT SC (11:32)
[2023-11-24] MEDS: Insulin Lispro 100 UNIT/ML INSULN.PEN 6 UNIT SC (11:32)
[2023-11-24] MEDS: Sucralfate 1 GM Tablet PO ×2 (11:32→20:50)
[2023-11-24] MEDS: Insulin Lispro 100 UNIT/ML INSULN.PEN SC (11:33)
[2023-11-24] MEDS: 0.9% Saline Lock 10 ML Syringe IV (11:49)
[2023-11-24] MEDS: Cefepime HCl 1 GM in 0.9% Normal Saline (50mL MB+) 50 ML IV (11:49)
--- NOTE | 2023-11-24 11:49 | PCM.PROGNOTE ---
Subjective Subjective Patient was seen this morning for follow up on left 5th toe amputation. She is doing well, no complaints, she is resting in chair with foot propped up. No complaints of f/c/n/v. Objective Data Objective Data Vital Signs: Vital Signs Temp Pulse Resp BP Pulse Ox O2 Del Method 97.6 F L 71 18 121/55 H 94 Room Air 11/24/23 08:00 11/24/23 08:00 11/24/23 08:00 11/24/23 08:00 11/24/23 08:00 11/24/23 08:00 Oxygen Delivery Method Room Air Weight: 99.2 kg Body Mass Index (BMI) 36.3 Intake & Output: Intake and Output for Last 24 Hours 11/22/23 11/23/23 11/24/23 23:59 23:59 23:59 Intake Total 380.75 / 520.75 560 / 700 380 / 380 Output Total 1940 / 1940 Balance -1559.25 / -1419.25 560 / 700 380 / 380 Lab / Micro Data 11/24/23 06:18 11/24/23 06:18 Labs: Laboratory Results - last 24 hr 11/23/23 11:37: POC Glucose 57 L 11/23/23 14:59: POC Glucose 114 H 11/23/23 16:32: POC Glucose 139 H 11/23/23 21:36: POC Glucose 158 H 11/24/23 06:18: WBC 3.1 L, RBC 3.41 L, Hgb 10.1 L, Hct 35.3 L, MCV 103.5 H, MCH 29.6, MCHC 28.6 L, RDW Std Deviation 69.3 H, RDW Coeff of Tami 18.4 H, Plt Count 107 L, MPV 10.8, Immature Gran % (Auto) 1.600 H, Neut % (Auto) 67.3, Lymph % (Auto) 16.7 L, [place] % (Auto) 9.6, Eos % (Auto) 4.5, Baso % (Auto) 0.3, Absolute Neuts (auto) 2.1, Absolute Lymphs (auto) 0.52 L, Nucleated RBC % 0, Anisocytosis 1+, PT 15.5 H, INR 1.2, Sodium 135 L, Potassium 4.9, Chloride 101, Carbon Dioxide 29.0, Anion Gap 5, BUN 45 H, Creatinine 5.88 H, Estim Creat Clear Calc 10.98, Est GFR (MDRD) Af Amer 9 L, Est GFR (MDRD) Non-Af 8 L, BUN/Creatinine Ratio 7.7 L, Glucose 78, Calcium 9.1 11/24/23 06:39: POC Glucose 66 L 11/24/23 07:01: POC Glucose 57 L 11/24/23 07:22: POC Glucose 82 11/24/23 07:59: POC Glucose 134 H Micro: Microbiology 11/22/23 Unknown Tissue - 5th Toe Gram Stain - Final 11/22/23 Unknown Tissue - 5th Toe Wound Culture - Preliminary GPC Poss Enterococcus sp 11/22/23 Unknown Bone - 5th Toe Gram Stain - Final 11/22/23 Unknown Bone - 5th Toe Wound Culture - Preliminary GNR lactose cheese tester GNR lactose cheese tester#2 Staphylococcus species Physical Exam Const alert, oriented x3 and no apparent distress Constitutional Narrative: s/p left 5th toe amputation, sutures intact with skin edges well coapted with no necrosis, no fluctuance, no crepitus,no visible abscess - tissues are healthy and viable with no evidence of acute ischemia left foot. Slight erythema to surgical site, otherwise no erythema, no drainage left foot. No evidence of DVT bilateral. Assessment & Plan Assessment/Plan (1) Gangrene, not elsewhere classified: (2) Diabetes mellitus with diabetic polyneuropathy: PLAN: Plan Patient admitted for left 5th toe gangrene, s/p left 5th toe amputation on 11/22/23 - doing well Noninvasive vascular studies were ordered. Vascular surgery was consulted and following - no vascular intervention planned. Minimal bleeding during surgery but tissues viable and healing appropriately at this time Ok to put weight on left heel for transitions - fit and dispensed CAM Walker boot - wear with weightbearing and ambulation Patient on antibiotics Vanc/Cefepime and Flagyl - ID on consult Hospital medicine and Nephrology consulted - appreciated assistance DVT Prophylaxis - SCDs, patient also on Heparin Also small erosion right 5th toe - stable - keep offloaded at all times - cut out shoe to offload site Discharge planning - home possibly tomorrow
[2023-11-24 11:57] LABS: Bedside Glucose 173 mg/dL (74-106)
[2023-11-24 14:40] VITALS: BP 123/47; PULSE 74; RESP 18; TEMP 36.6; O2SAT 95
--- NOTE | 2023-11-24 15:22 | PN.HOSP_ITS ---
Subjective Subjective No issues overnight Objective Data Objective Data Vital Signs: Vital Signs Temp Pulse Resp BP Pulse Ox O2 Del Method 98 F 74 18 123/47 H 95 Room Air 11/24/23 14:40 11/24/23 14:40 11/24/23 14:40 11/24/23 14:40 11/24/23 14:40 11/24/23 14:40 Oxygen Delivery Method Room Air Weight: 218 lb 11.177 oz Body Mass Index (BMI) 36.3 Intake & Output: Intake and Output for Last 24 Hours 11/23/23 11/24/23 11/25/23 03:59 03:59 03:59 Intake Total 520.75 / 520.75 560 / 560 290.00 / 290.00 Output Total 1940 / 1940 Balance -1419.25 / -1419.25 560 / 560 290.00 / 290.00 Lab / Micro Data 11/24/23 06:18 11/25/23 05:50 Labs: Laboratory Results - last 24 hr 11/23/23 16:32: POC Glucose 139 H 11/23/23 21:36: POC Glucose 158 H 11/24/23 06:18: WBC 3.1 L, RBC 3.41 L, Hgb 10.1 L, Hct 35.3 L, MCV 103.5 H, MCH 29.6, MCHC 28.6 L, RDW Std Deviation 69.3 H, RDW Coeff of Tami 18.4 H, Plt Count 107 L, MPV 10.8, Immature Gran % (Auto) 1.600 H, Neut % (Auto) 67.3, Lymph % (Auto) 16.7 L, [place] % (Auto) 9.6, Eos % (Auto) 4.5, Baso % (Auto) 0.3, Absolute Neuts (auto) 2.1, Absolute Lymphs (auto) 0.52 L, Nucleated RBC % 0, Anisocytosis 1+, PT 15.5 H, INR 1.2, Sodium 135 L, Potassium 4.9, Chloride 101, Carbon Dioxide 29.0, Anion Gap 5, BUN 45 H, Creatinine 5.88 H, Estim Creat Clear Calc 10.98, Est GFR (MDRD) Af Amer 9 L, Est GFR (MDRD) Non-Af 8 L, BUN/Creatinine Ratio 7.7 L, Glucose 78, Calcium 9.1 11/24/23 06:39: POC Glucose 66 L 11/24/23 07:01: POC Glucose 57 L 11/24/23 07:22: POC Glucose 82 11/24/23 07:59: POC Glucose 134 H 11/24/23 11:29: POC Glucose 173 H Micro: Microbiology 11/22/23 Unknown Tissue - 5th Toe Gram Stain - Final 11/22/23 Unknown Tissue - 5th Toe Wound Culture - Preliminary GPC Poss Enterococcus sp 11/22/23 Unknown Tissue - 5th Toe Anaerobic Culture - Preliminary No growth in 48 hours. 11/22/23 Unknown Bone - 5th Toe Gram Stain - Final 11/22/23 Unknown Bone - 5th Toe Wound Culture - Preliminary GNR lactose central service tech GNR lactose central service tech#2 Staphylococcus species 11/22/23 Unknown Bone - 5th Toe Anaerobic Culture - Preliminary Checking for anaerobes, further studies to follow. Radiography Diagnostic Testing: Radiology Impression Duplex Scan Lower Extremity Artery 11/20/23 17:00 Interpretation Summary Patent left lower extremity arteries with no stenosis or occlusion identified. Diminished waveforms in posterior tibial artery Ordering Physician: Reji Dennis Referring Physician: Velia Archuleta Performed By: Christine Shen RVT Physical Exam Narrative General: Alert, Oriented x3, Cooperative, No apparent distress HEENT: Atraumatic, PERRLA, EOMI, Normocephalic Oral: Moist Mucosa Neck: Supple, No JVD Lungs: Clear to auscultation, Normal air movement, No rhonchi, No wheeze, No rales Cardiovascular: Regular rate, Regular Rhythm, Normal S1, Normal S2, No murmurs Abdomen: Soft, Non Tender, Non-Distended, No Hepato-splenomegaly Extremities: No edema, Capillary Refill Less than 3 Seconds Skin: Left foot dressing intact, CDI Musculoskeletal: No Tenderness to Palpation of Joints or Extremities Neurological: No focal neurological deficits, Motor Exam 5/5 strength throughout, Sensory exam intact to light touch and pain Psych/Mental Status: Normal Affect, Appropriate Assessment & Plan Assessment/Plan (1) Gangrene of left foot: (2) Hypokalemia: PLAN: Plan 1. Dry gangrene with infection of the fifth digit on left foot: Patient admitted in ICU as MedSurg status and podiatry service -Recent cultures were polymicrobial with Enterococcus, Enterobacter, Klebsiella, MRSA - cefepime 1 g x 1 dose and then dose 500 mg after dialysis on Saturday and Saturday -Vancomycin with pharmacy to dose -Consult infectious disease PT and OT 11/21: Patient had left fifth toe amputation under local and MAC anesthesia. The specimen sent for biopsy. Continue IV antibiotic. Seen by ID. On vancomycin and cefepime and p.o. Flagyl. 11/24/2023: Continue with antibiotics will await IDs discharging recommendations Hypokalemia -P.o. potassium replacement 40 mill equivalents On HD. Therefore no replacement aggressive. Repeat labs pending 11/21 potassium level normal. 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 Patient was seen by GI office in October 2023. Patient was told by customer service coordinator and they found a spot in the liver. It is being managed and followed by [facility] customer service coordinator. Last CT scan abdomen/pelvis in May 2023 did not show any focal lesion in the liver but hepatic steatosis. Splenomegaly. Normal pancreas. -Continue tacrolimus Recent history of C. difficile: She had positive C. difficile antigen and PCR in June 2023 and was negative for toxin. Abdominal pain and diarrhea has improved and is. CT shows diffuse thickening of the colon in May 2023. Diabetic neuropathy -Continue home gabapentin Essential hypertension/hyperlipidemia -Continue home carvedilol -Continue home atorvastatin GERD/history of GI bleed -Continue home Protonix -Continue home Carafate DM-2 -Continue home basal insulin 12 units twice daily -Continue prandial insulin 6 units 3 times daily with meals -SSI -Accu-Cheks as ordered -Will likely need basal insulin adjustment perioperatively Chronic anemia secondary to chronic renal disease/liver disease -Hemoglobin is stable at 10.2 -Monitor Obesity -Complicates treatment, prognosis, outcomes -BMI 36.4 DVT: Heparin Charges/Coding Visit Charges Inpatient E&M: 64632 Subs Hosp L2
[2023-11-24 17:22] LABS: Bedside Glucose 112 mg/dL (74-106)
[2023-11-24 20:40] VITALS: BP 128/57; PULSE 76; RESP 16; TEMP 36.6; O2SAT 99
[2023-11-24] MEDS: traZODone 100 MG Tablet PO (20:50)
[2023-11-24] MEDS: Atorvastatin Calcium 10 MG Tablet PO (20:51)
[2023-11-24] MEDS: Gabapentin 100 MG Capsule 200 MG PO (20:52)
[2023-11-24] MEDS: oxyCODONE 5 MG Tablet PO (20:54)
[2023-11-24 22:25] LABS: Bedside Glucose 131 mg/dL (74-106)
[2023-11-25] VITALS (11 sets, daily range): BP systolic 118–233; BP diastolic 46–73; PULSE 62–89; RESP 12–16; TEMP 36.5–36.6; O2SAT 95–100; BMI 36.3; BMI 35.6
[2023-11-25] MEDS: Acetaminophen 500 MG Tablet 1000 MG PO ×2 (05:36→15:27)
[2023-11-25] MEDS: Heparin Injection (Vial) 5,000 UNIT/ML VIAL 5000 UNIT SC ×2 (05:36→15:26)
[2023-11-25] MEDS: Pramipexole Di-HCl 0.25 MG Tablet PO ×2 (05:36→15:27)
[2023-11-25] MEDS: metroNIDAZOLE 500 MG Tablet PO (05:36)
[2023-11-25] MEDS: Levothyroxine 88 MCG Tablet PO (05:36)
[2023-11-25] MEDS: oxyCODONE 5 MG Tablet PO (05:37)
[2023-11-25 06:53] LABS: Anion Gap 7 (5-15); BUN 65 mg/dL (7-18); Calcium,Total 9.2 mg/dL (8.5-10.1); Chloride 97 mmol/L (98-107); Creatinine, Serum 6.53 mg/dL (0.55-1.02); EST Glomerular Filtration Rate 7 mL/min (>60); Est Glom Filt Rate - Afr Amer 8 mL/min (>60); Estimated Creatinine Clearance 9.88 ml/min; Glucose 96 mg/dL (74-106); Potassium 5.1 mmol/L (3.5-5.1); Sodium Level 130 mmol/L (136-145)
[2023-11-25 06:59] LABS: Vancomycin, Random Level 22.4 ug/mL (0.0-15.0)
[2023-11-25 07:07] LABS: Bedside Glucose 78 mg/dL (74-106)
[2023-11-25] MEDS: Vitamin B Comp W-C Capsule 1 CAP PO (08:20)
[2023-11-25] MEDS: Aspirin E.C. 81 MG Tablet PO (08:20)
[2023-11-25] MEDS: SEVELAMER CARBONATE 800 MG TABLET 1600 MG PO ×3 (08:21→16:47)
[2023-11-25] MEDS: Vancomycin Trough/Random Due 1 LAB MC (08:57)
--- NOTE | 2023-11-25 09:12 | PN.HOSP_ITS ---
Subjective Subjective no issues overnight, doing well Objective Data Objective Data Vital Signs: Vital Signs Temp Pulse Resp BP Pulse Ox O2 Del Method 97.9 F 65 16 130/46 H 100 Room Air 11/25/23 08:08 11/25/23 08:08 11/25/23 08:08 11/25/23 08:08 11/25/23 08:08 11/25/23 08:08 Oxygen Delivery Method Room Air Weight: 218 lb 11.177 oz Body Mass Index (BMI) 36.3 Intake & Output: Intake and Output for Last 24 Hours 11/24/23 11/25/23 11/26/23 03:59 03:59 03:59 Intake Total 560 / 560 490.00 / 490.00 340 / 340 Balance 560 / 560 490.00 / 490.00 340 / 340 Lab / Micro Data 11/24/23 06:18 11/25/23 05:50 Labs: Laboratory Results - last 24 hr 11/24/23 11:29: POC Glucose 173 H 11/24/23 17:04: POC Glucose 112 H 11/24/23 20:43: POC Glucose 131 H 11/25/23 05:35: POC Glucose 78 11/25/23 05:50: Sodium 130 L, Potassium 5.1, Chloride 97 L, Carbon Dioxide 26.0, Anion Gap 7, BUN 65 H, Creatinine 6.53 H, Estim Creat Clear Calc 9.88, Est GFR (MDRD) Af Amer 8 L, Est GFR (MDRD) Non-Af 7 L, BUN/Creatinine Ratio 10.0, Glucose 96, Calcium 9.2, Random Vancomycin 22.4 H Micro: Microbiology 11/22/23 Unknown Tissue - 5th Toe Gram Stain - Final 11/22/23 Unknown Tissue - 5th Toe Wound Culture - Preliminary GPC Poss Enterococcus sp 11/22/23 Unknown Tissue - 5th Toe Anaerobic Culture - Preliminary No growth in 48 hours. 11/22/23 Unknown Bone - 5th Toe Gram Stain - Final 11/22/23 Unknown Bone - 5th Toe Wound Culture - Preliminary GNR lactose lasting machine operator hand method GNR lactose lasting machine operator hand method#2 Staphylococcus species 11/22/23 Unknown Bone - 5th Toe Anaerobic Culture - Preliminary Checking for anaerobes, further studies to follow. Radiography Diagnostic Testing: Radiology Impression Duplex Scan Lower Extremity Artery 11/20/23 17:00 Interpretation Summary Patent left lower extremity arteries with no stenosis or occlusion identified. Diminished waveforms in posterior tibial artery Ordering Physician: Reji Dennis Referring Physician: Velia Archuleta Performed By: Christine Shen, RVT Physical Exam Narrative General: Alert, Oriented x3, Cooperative, No apparent distress HEENT: Atraumatic, PERRLA, EOMI, Normocephalic Oral: Moist Mucosa Neck: Supple, No JVD Lungs: Clear to auscultation, Normal air movement, No rhonchi, No wheeze, No rales Cardiovascular: Regular rate, Regular Rhythm, Normal S1, Normal S2, No murmurs Abdomen: Soft, Non Tender, Non-Distended, No Hepato-splenomegaly Extremities: No edema, Capillary Refill Less than 3 Seconds Skin: Left foot dressing intact, CDI Musculoskeletal: No Tenderness to Palpation of Joints or Extremities Neurological: No focal neurological deficits, Motor Exam 5/5 strength throughout, Sensory exam intact to light touch and pain Psych/Mental Status: Normal Affect, Appropriate Assessment & Plan Assessment/Plan (1) Gangrene of left foot: (2) Hypokalemia: PLAN: Plan 1. Dry gangrene with infection of the fifth digit on left foot: Patient admitted in ICU as MedSurg status and podiatry service -Recent cultures were polymicrobial with Enterococcus, Enterobacter, Klebsiella, MRSA - cefepime 1 g x 1 dose and then dose 500 mg after dialysis on Saturday and Saturday -Vancomycin with pharmacy to dose -Consult infectious disease PT and OT 11/21: Patient had left fifth toe amputation under local and MAC anesthesia. The specimen sent for biopsy. Continue IV antibiotic. Seen by ID. On vancomycin and cefepime and p.o. Flagyl. 11/24/2023: Continue with antibiotics will await IDs discharging recommendations 11/25/2023: Awaiting antibiotic recommendations, otherwise medically cleared for discharge after dialysis Hypokalemia -P.o. potassium replacement 40 mill equivalents On HD. Therefore no replacement aggressive. Repeat labs pending 11/21 potassium level normal. 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 Patient was seen by GI office in October 2023. Patient was told by service center coordinator and they found a spot in the liver. It is being managed and followed by [facility] service center coordinator. Last CT scan abdomen/pelvis in May 2023 did not show any focal lesion in the liver but hepatic steatosis. Splenomegaly. Normal pancreas. -Continue tacrolimus Recent history of C. difficile: She had positive C. difficile antigen and PCR in June 2023 and was negative for toxin. Abdominal pain and diarrhea has improved and is. CT shows diffuse thickening of the colon in May 2023. Diabetic neuropathy -Continue home gabapentin Essential hypertension/hyperlipidemia -Continue home carvedilol -Continue home atorvastatin GERD/history of GI bleed -Continue home Protonix -Continue home Carafate DM-2 -Continue home basal insulin 12 units twice daily -Continue prandial insulin 6 units 3 times daily with meals -SSI -Accu-Cheks as ordered -Will likely need basal insulin adjustment perioperatively Chronic anemia secondary to chronic renal disease/liver disease -Hemoglobin is stable at 10.2 -Monitor Obesity -Complicates treatment, prognosis, outcomes -BMI 36.4 DVT: Heparin Will sign off Charges/Coding Visit Charges Inpatient E&M: 45019 Subs Hosp L2
--- NOTE | 2023-11-25 09:30 | PCM.RX.CS ---
Consult Antibiotic Management Pharmacy has been consulted to manage selected antibiotic: Vancomycin Type of Intervention Type of Consult: Follow-up Labs Labs: Sodium 130 mmol/L (136-145) L 11/25/23 05:50 Potassium 5.1 mmol/L (3.5-5.1) 11/25/23 05:50 Chloride 97 mmol/L (98-107) L 11/25/23 05:50 Carbon Dioxide 26.0 mmol/L (21.0-32.0) 11/25/23 05:50 Anion Gap 7 (5-15) 11/25/23 05:50 BUN 65 mg/dL (7-18) H 11/25/23 05:50 Creatinine 6.53 mg/dL (0.55-1.02) H 11/25/23 05:50 Est GFR (MDRD) Af Amer 8 mL/min (>60) L 11/25/23 05:50 Est GFR (MDRD) Non-Af 7 mL/min (>60) L 11/25/23 05:50 BUN/Creatinine Ratio 10.0 RATIO (10-20) 11/25/23 05:50 Glucose 96 mg/dL (74-106) 11/25/23 05:50 Random Vancomycin 22.4 ug/mL (0.0-15.0) H 11/25/23 05:50 Microbiology Microbiology: Microbiology 11/22/23 Unknown Tissue - 5th Toe Gram Stain - Final 11/22/23 Unknown Tissue - 5th Toe Wound Culture - Preliminary GPC Poss Enterococcus sp 11/22/23 Unknown Tissue - 5th Toe Anaerobic Culture - Preliminary No growth in 48 hours. 11/22/23 Unknown Bone - 5th Toe Gram Stain - Final 11/22/23 Unknown Bone - 5th Toe Wound Culture - Preliminary GNR lactose brass wind instruments tube bender GNR lactose brass wind instruments tube bender#2 Staphylococcus species 11/22/23 Unknown Bone - 5th Toe Anaerobic Culture - Preliminary Checking for anaerobes, further studies to follow. Goal Trough Goal Trough: 15-20 mcg/mL Pharmacy Plan for Drug Dosing Pharmacy Plan for Drug Dosing: VANCOMYCIN LEVEL RECEIVED Current Vancomycin Dose: DOSE PER HD Number of Doses Received: 2 (INITIAL DOSE + 1 DOSE POST-HD) Vancomycin Level: 22.4 Renal Function: ON DIALYSIS Renal Function Trend: SCHEDULE M/W/F Lab/Micro: WCX GROWING ENTEROCOCCUS Vancomycin Plan/Comments: Pending Level: *PRE-HD* LEVEL 11/27/23 @0600 Pharmacy Service will continue to monitor and adjust dosing as required.
--- NOTE | 2023-11-25 09:54 | CASEMGMT ---
Addendum entered by Lily Escobar 11/25/23 16:05: NIEVES BIANCHI into pt room to make aware that she will be getting IV atb at dialysis but that we are waiting to hear that they can have this for Saturday's dialysis. Pt states that she needs to be dc'd as she has a biopsy at [facility] on Saturday. Pod has not been in yet today. Pt is aware that should she be dc'd today, NIEVES BIANCHI will give [facility] the dc information in the morning. Pt denies any further homegoing needs at this time. Addendum entered by Lily Escobar 11/25/23 15:46: Barbie from [facility] called back and states that the ertapenem was approved. She will need to order med. She is unsure how long this will take to receive. She is aware pt will need for Saturday. She states she will ask for this to be expedited and will let NIEVES BIANCHI know ETA. Addendum entered by Lily Escobar 11/25/23 14:25: Spoke with Barbie at [facility]. She states she can give the vanc to pt with dialysis but she has to have the ertapenem approved by the P&T committee. She will keep NIEVES BIANCHI updated. Original Note: Message sent to [facility] that pt will likely dc today and will attach dc instructions when available.
[2023-11-25] MEDS: Carvedilol 6.25 MG Tablet PO (09:58)
[2023-11-25] MEDS: Torsemide 20 MG Tablet 60 MG PO (09:58)
[2023-11-25] MEDS: Pantoprazole Sodium 40 MG Tablet PO (10:01)
[2023-11-25] MEDS: Tacrolimus 0.5 MG Capsule PO (10:01)
[2023-11-25] MEDS: Ascorbic Acid 500 MG Tablet 1000 MG PO (10:03)
[2023-11-25] MEDS: Cholecalciferol (VIT D3) 25 MCG TABLET (1,000 UNITS) PO (10:04)
[2023-11-25] MEDS: Sertraline 100 MG Tablet PO (10:04)
--- NOTE | 2023-11-25 10:17 | WOUNDNOTE ---
wound photo: left foot
--- NOTE | 2023-11-25 10:53 | PN.RENAL_ITS ---
<Statement entered by Barrett Strickland MD - 11/25/23 19:05> I have personally performed a face to face assessment of the patient and have reviewed the ROSA Note. Subjective Subjective Sitting up in bed getting ready to work with therapy. No overnight events. No complaints. Objective Data Objective Data Vital Signs: Vital Signs Temp Pulse Resp BP Pulse Ox O2 Del Method 97.9 F 65 16 130/46 H 100 Room Air 11/25/23 08:08 11/25/23 08:08 11/25/23 08:08 11/25/23 08:08 11/25/23 08:08 11/25/23 08:08 Oxygen Delivery Method Room Air Weight: 99.2 kg Body Mass Index (BMI) 36.3 Intake & Output: Intake and Output for Last 24 Hours 11/23/23 11/24/23 11/25/23 23:59 23:59 23:59 Intake Total 560 / 700 430.00 / 630.00 540 / 540 Balance 560 / 700 430.00 / 630.00 540 / 540 Lab / Micro Data 11/24/23 06:18 11/25/23 05:50 Labs: Laboratory Results - last 24 hr 11/24/23 11:29: POC Glucose 173 H 11/24/23 17:04: POC Glucose 112 H 11/24/23 20:43: POC Glucose 131 H 11/25/23 05:35: POC Glucose 78 11/25/23 05:50: Sodium 130 L, Potassium 5.1, Chloride 97 L, Carbon Dioxide 26.0, Anion Gap 7, BUN 65 H, Creatinine 6.53 H, Estim Creat Clear Calc 9.88, Est GFR (MDRD) Af Amer 8 L, Est GFR (MDRD) Non-Af 7 L, BUN/Creatinine Ratio 10.0, Glucose 96, Calcium 9.2, Random Vancomycin 22.4 H Micro: Microbiology 11/22/23 Unknown Tissue - 5th Toe Gram Stain - Final 11/22/23 Unknown Tissue - 5th Toe Wound Culture - Preliminary GPC Poss Enterococcus sp 11/22/23 Unknown Tissue - 5th Toe Anaerobic Culture - Preliminary No growth in 48 hours. 11/22/23 Unknown Bone - 5th Toe Gram Stain - Final 11/22/23 Unknown Bone - 5th Toe Wound Culture - Preliminary GNR lactose assembler installer general GNR lactose assembler installer general#2 Staphylococcus species 11/22/23 Unknown Bone - 5th Toe Anaerobic Culture - Preliminary Checking for anaerobes, further studies to follow. Radiography Diagnostic Testing: Radiology Impression Duplex Scan Lower Extremity Artery 11/20/23 17:00 Interpretation Summary Patent left lower extremity arteries with no stenosis or occlusion identified. Diminished waveforms in posterior tibial artery Ordering Physician: Reji Dennis Referring Physician: Velia Archuleta Performed By: Christine Shen RVT Physical Exam Narrative Alert awake oriented x 3 no obvious distress s1s2 no murmurs lungs clear abdomen soft no edema AV fistula positive thrill and bruit Assessment & Plan Assessment/Plan (1) End stage renal disease on dialysis: PLAN: - ESRD. On hemodialysis Saturday, Saturday, Saturday. To undergo hemodialysis today with fluid removal. - Anemia. Hemoglobin is near goal. Gets long-acting erythropoietin with dialysis - Left toe gangrene status post fifth toe amputation. Being followed by vascular and podiatry. Awaiting antibiotic recommendations per ID. -Possible discharge home today.
[2023-11-25 11:44] LABS: Bedside Glucose 113 mg/dL (74-106)
--- NOTE | 2023-11-25 12:33 | PN.ID_ITS ---
Physical Exam Narrative Feeling ok, no fever, pain controlled, no n/v/d. Const alert and no apparent distress General Appearance: cooperative Resp normal air movement and clear to auscultation bilaterally Cardio regular rate and regular rhythm GI soft to palpation, non-tender and non-distended Skin Skin Narrative: leg wrapped ID ID: Route of nutrition/ use of supplements: [] Nutritional Intake: [] IV Site: [] Paz Catheter: [] Assessment & Plan Assessment/Plan (1) Gangrene of left foot: PLAN: Podiatry following, went to OR 11/22/[address] Dennis for toe amp. Cxs enterococcus, staph epi, ESBL ecoli, enterobacter. Will change to vanc/erta, dosed with HD for 6 weeks, stop date 01/03/24 with weekly labs, ID followup in 2- 3 weeks. Will follow, d/w medical case worker (2) Diabetes mellitus with diabetic polyneuropathy: (3) End stage renal disease on dialysis: (4) History of liver transplant:
--- NOTE | 2023-11-25 12:40 | CASEMGMT ---
Doctor ordered IV antibiotics to be administered at Dialysis. NIEVES BIANCHI called [facility], spoke with Barbie. Informed that [facility] unable to administer IV antibiotics if unrelated to dialysis. NIEVES BIANCHI asked if pt goes to [facility] if [facility] will administer there. Barbie to find out and call NIEVES BIANCHI back.
[2023-11-25] MEDS: PureFlow B 2K Dialysis Soln 1 BAG 6 BAG PF (12:50)
[2023-11-25] MEDS: 0.9% Normal Saline 1,000 ML IV.SOLN. 1000 ML OPERA.SITE ×2 (12:50→15:22)
[2023-11-25] MEDS: Sucralfate 1 GM Tablet PO (15:26)
[2023-11-25] MEDS: Ertapenem Sod 0.5 GM in 0.9% Normal Saline (50mL Bag) 50 ML IV (15:40)
[2023-11-25 16:54] LABS: Bedside Glucose 115 mg/dL (74-106)
--- NOTE | 2023-11-25 16:59 | DCINST_ITS ---
Discharge Instructions Activity Weight Bearing Status: Partial weight bearing (Partial weightbearing left foot using walking and CAM walker boot when on foot) Keep extremity elevated above heart level: Operative Extremity (Keep left foot elevated with pillows as much as possible) Dressing / Incision Call your doctor if your incision/area has: Continuous Slow Oozing and Foul Smelling Discharge Call your doctor if you observe: Fever of 101 or Higher, Shortness of breath, Chest pain, Calf discomfort and Uncontrolled pain Change Dressing in: 1 day (Left foot - Apply betadine solution to incision site, cover with gauze and mery dressing - change daily, otherwise keep clean and dry) Follow Up Care Please Follow Up With: Reji Dennis DPM When: 1 week in office sooner if needed Test Results: Test results from this visit will be discussed in further detail at your follow- up appointment, if applicable. Discharge Plan Admission Admit Date/Time: 11/20/23 16:57 Attending Provider: Reji Dennis Primary Care Provider: Velia Archuleta Consulting Providers: Rosey Mendez; Kenji Abreu; Garth Martin; Brittani Clark; Reina Penn NP; Mary Kang; Yovani Johansen; Janiya Rosas; Janiya Bello; Rosalio Jordan; Barrett Strickland; Carlton Morales; Owen Armenta Discharge Orders/Prescriptions Prescriptions: New ertapenem 1 gram Recon Soln 1 g IV QMWF 38 Days Qty: 16 0RF Rx Instructions: stop date 01/03/24. Ertapenem 1gm IV dosed with HD on Sat-Sat-Sat. Weekly bmp, cbc, LFT, vanc trough, and esr. Fax to [phone]. vancomycin 2 gram recon soln 1 g IV QMWF 38 Days Rx Instructions: stop date 01/03/24. Vancomycin 2gm IV dosed with HD on Sat-Sat-Sat. Weekly bmp, cbc, LFT, vanc trough, and esr. Fax to [phone]. Continued bisacodyl [Dulcolax (bisacodyl)] 10 mg suppository 10 mg WV DAILY PRN (Reason: constipation) Qty: 30 0RF ascorbic acid (vitamin C) 500 MG tablet,chewable 1,000 mg PO DAILY Patient Comments: supplement cholecalciferol (vitamin D3) 1,000 UNIT tablet 1,000 unit PO BID Patient Comments: bone health ropinirole 1 mg tablet 1 mg PO DAILY tacrolimus [Prograf] 1 MG capsule 0.5 mg PO BID vitamin B complex 1 EACH tablet 1 tablet PO DAILY sevelamer carbonate [Renvela] 800 MG tablet 1,600 mg PO TIDCM ropinirole 2 MG tablet extended release 24 hr 2 mg PO QHS nitroglycerin 0.4 mg Tablet, Sublingual 0.4 mg sublingual Q5M PRN (Reason: Cardiac/Chest Pain) Qty: 30 0RF sertraline [Zoloft] 50 MG tablet 100 mg PO DAILY Patient Comments: depression biotin 1 mg Capsule 1 mg PO BID albuterol sulfate 1 PUFF inhaler 2 puff IH Q4H PRN PRN (Reason: Sob &/Or Wheezing) 30 Days Qty: 8.6 0RF Otezla 30 mg tablet 30 mg PO DAILY aluminum-magnesium hydroxide 225-200 mg/5 mL suspension 30 ml PO Q4H PRN PRN (Reason: GI distress) melatonin 10 mg tablet 10 mg PO QHS midodrine 10 mg tablet 10 mg PO MOWEFR PRN (Reason: hypotension) Patient Comments: ON HOLD FOR LAST 2-3 WEEKS Rx Instructions: afternoon torsemide 60 mg tablet 60 mg PO DAILY levothyroxine 88 mcg tablet 88 mcg PO DAILY trazodone 100 mg tablet 100 mg PO QHS gabapentin 100 mg capsule 200 mg PO QHS Patient Comments: TAKE 2 CAPSULES BY MOUTH AT BEDTIME sucralfate [Carafate] 1 gram tablet 1 g PO BID Qty: 30 0RF aspirin [Adult Aspirin Regimen] 81 mg tablet,delayed release (DR/EC) 81 mg PO DAILY carvedilol 12.5 mg tablet 6.25 mg PO BID pantoprazole 40 mg tablet,delayed release (DR/EC) 40 mg PO BID nystatin [Nyamyc] 100,000 unit/gram Powder 1 applic topical BID PRN PRN (Reason: SKIN) Protocol: *Topical Application Instructions APPLICATION INSTRUCTIONS: apply to abdominal folds atorvastatin 10 mg tablet 10 mg PO QHS hydrocodone-acetaminophen 5-325 mg Tablet 1 tab PO Q6H PRN PRN (Reason: Pain Score 6-10) 2 Days Qty: 10 0RF insulin lispro [Humalog KwikPen Insulin] 100 unit/mL Insulin Pen 6 unit subcut TIDCM Qty: 0 0RF insulin glargine-yfgn 100 unit/mL (3 mL) Insulin Pen 12 unit subcut BID Qty: 0 0RF menthol-zinc oxide [Calmoseptine] 0.44-20.6 % Ointment 1 applic topical BID Qty: 0 0RF Protocol: *Topical Application Instructions APPLICATION INSTRUCTIONS: buttocks dicyclomine 10 mg capsule 20 mg PO Q6H PRN PRN (Reason: abdominal discomfort) Qty: 30 0RF Referrals / Follow Up: Velia Archuleta MD [Primary Care Provider] - Disposition Disposition (needs filled in before D/C Order can be placed): Home Health Service
--- NOTE | 2023-11-25 16:59 | PCM.PROGNOTE ---
Subjective Subjective Patient was seen this afternoon. She relates she is doing well and ready to go home. No c/o of f/c/n/v. Objective Data Objective Data Vital Signs: Vital Signs Temp Pulse Resp BP Pulse Ox O2 Del Method 97.7 F L 62 14 140/61 H 99 Room Air 11/25/23 14:53 11/25/23 14:53 11/25/23 14:53 11/25/23 14:53 11/25/23 14:53 11/25/23 14:53 Oxygen Delivery Method Room Air Weight: 97 kg Body Mass Index (BMI) 35.6 Intake & Output: Intake and Output for Last 24 Hours 11/23/23 11/24/23 11/25/23 23:59 23:59 23:59 Intake Total 560 / 700 430.00 / 630.00 595 / 595 Output Total 2260 / 2260 Balance 560 / 700 430.00 / 630.00 -1665 / -1665 Lab / Micro Data 11/24/23 06:18 11/25/23 05:50 Labs: Laboratory Results - last 24 hr 11/24/23 17:04: POC Glucose 112 H 11/24/23 20:43: POC Glucose 131 H 11/25/23 05:35: POC Glucose 78 11/25/23 05:50: Sodium 130 L, Potassium 5.1, Chloride 97 L, Carbon Dioxide 26.0, Anion Gap 7, BUN 65 H, Creatinine 6.53 H, Estim Creat Clear Calc 9.88, Est GFR (MDRD) Af Amer 8 L, Est GFR (MDRD) Non-Af 7 L, BUN/Creatinine Ratio 10.0, Glucose 96, Calcium 9.2, Random Vancomycin 22.4 H 11/25/23 10:56: POC Glucose 113 H 11/25/23 16:35: POC Glucose 115 H Micro: Microbiology 11/22/23 Unknown Bone - 5th Toe Gram Stain - Final 11/22/23 Unknown Bone - 5th Toe Wound Culture - Preliminary ESBL Escherichia coli Enterobacter cloacae complex Staphylococcus epidermidis 11/22/23 Unknown Bone - 5th Toe Anaerobic Culture - Final No anaerobic bacteria isolated. 11/22/23 Unknown Tissue - 5th Toe Gram Stain - Final 11/22/23 Unknown Tissue - 5th Toe Wound Culture - Final Enterococcus faecalis 11/22/23 Unknown Tissue - 5th Toe Anaerobic Culture - Preliminary No growth in 48 hours. Physical Exam Const alert, oriented x3 and no apparent distress Assessment & Plan Assessment/Plan (1) Gangrene, not elsewhere classified: (2) Diabetes mellitus with diabetic polyneuropathy: PLAN: Plan Patient admitted for left 5th toe gangrene, s/p left 5th toe amputation on 11/22/23 - doing well Noninvasive vascular studies were ordered. Vascular surgery was consulted and following - no vascular intervention planned. Minimal bleeding during surgery but tissues viable and healing appropriately at this time Ok to put weight on left heel for transitions - fit and dispensed CAM Walker boot - wear with weightbearing and ambulation Patient on antibiotics Vanc/Cefepime and Flagyl - ID on consult Hospital medicine and Nephrology consulted - appreciated assistance DVT Prophylaxis - SCDs, patient also on Heparin Also small erosion right 5th toe - stable - keep offloaded at all times - cut out shoe to offload site Discharge planning - d/c home today
--- NOTE | 2023-11-25 17:30 | DS.PCM_ITS ---
Providers Date of Admission: 11/20/23 Primary Care Physician: Dr. Velia Archuleta MD Consultations 11/20/23 16:52 Consult: Hospitalist Routine Consulting Provider: [facility] Reason for Consult: diabetes and other chronic medical problems EMERGENT Consult: No Notified: Yes Date Notified: 11/20/23 Time Notified: 16:52 Method of Notification: Text Consult: Vascular Surgery Routine Consulting Provider: Carlton Morales Reason for Consult: gangrene left foot EMERGENT Consult: No Notified: Yes Date Notified: 11/20/23 Time Notified: 16:53 Method of Notification: Text 11/20/23 16:57 Consult: Onc/Wound/audio production engineer Routine Comment: Reason for Consult:: ulcer/gangrene left 5th toe 11/20/23 18:03 Consult: Nephrology Routine Consulting Provider: Barrett Strickland Reason for Consult: ESRD-HD EMERGENT Consult: No Notified: Yes Date Notified: 11/20/23 Time Notified: 18:07 Method of Notification: Answering Service 11/20/23 18:04 Consult: Infectious Disease Routine Consulting Provider: Rosalio Jordan Reason for Consult: wound infection EMERGENT Consult: No Notified: Yes Date Notified: 11/20/23 Time Notified: 18:09 Method of Notification: Answering Service Reason For Visit: GANGRENE LEFT FOOT Diagnosis Discharge Diagnosis (1) Gangrene, not elsewhere classified: Status: Acute Code(s): I96 - Gangrene, not elsewhere classified (2) Diabetes mellitus with diabetic polyneuropathy: Status: Acute Code(s): E11.42 - Type 2 diabetes mellitus with diabetic polyneuropathy Plan Patient admitted for left 5th toe gangrene, s/p left 5th toe amputation on 11/22/23 - doing well Noninvasive vascular studies were ordered. Vascular surgery was consulted and following - no vascular intervention planned. Minimal bleeding during surgery but tissues viable and healing appropriately at this time Ok to put weight on left heel for transitions - fit and dispensed CAM Walker boot - wear with weightbearing and ambulation Patient on antibiotics Vanc/Cefepime and Flagyl - ID on consult Hospital medicine and Nephrology consulted - appreciated assistance DVT Prophylaxis - SCDs, patient also on Heparin Also small erosion right 5th toe - stable - keep offloaded at all times - cut out shoe to offload site Discharge planning - d/c home today Medications at Discharge Home Medications ascorbic acid (vitamin C) 500 mg chewable tablet 1,000 mg PO DAILY supplement 02/20/15 cholecalciferol (vitamin D3) 25 mcg (1,000 unit) tablet 1,000 unit PO BID supplement 02/20/15 tacrolimus 1 mg capsule, immediate-release (Prograf) 0.5 mg PO BID REJECTION 09/10/19 vitamin B complex 1 tablet PO DAILY SUPPLEMENT 09/10/19 ropinirole 1 mg tablet 1 mg PO DAILY restless legs 05/23/20 ropinirole 2 mg tablet,extended release 24 hr 2 mg PO QHS restless legs 06/10/20 sevelamer carbonate 800 mg tablet (Renvela) 1,600 mg PO TIDCM kidney disease 06/10/20 nitroglycerin 0.4 mg sublingual tablet 0.4 mg sublingual Q5M PRN Cardiac/Chest Pain #30 tabs 04/29/21 biotin 1 mg capsule 1 mg PO BID supplement 08/11/21 sertraline 50 mg tablet (Zoloft) 100 mg PO DAILY mood 08/11/21 albuterol sulfate 90 mcg/actuation aerosol inhaler 2 puff IH Q4H PRN PRN Sob &/Or Wheezing 30 days #8.6 grams 10/25/21 apremilast 30 mg tablet (Otezla) 30 mg PO DAILY 09/08/22 gabapentin 100 mg capsule 200 mg PO QHS 12/31/22 levothyroxine 88 mcg tablet 88 mcg PO DAILY 12/31/22 sucralfate 1 gram tablet (Carafate) 1 g PO BID #30 tabs 12/31/22 trazodone 100 mg tablet 100 mg PO QHS 12/31/22 aspirin 81 mg tablet,delayed release (Adult Aspirin Regimen) 81 mg PO DAILY 01/28/23 bisacodyl 10 mg rectal suppository (Dulcolax (bisacodyl)) 10 mg VT DAILY PRN constipation #30 ea 02/12/23 aluminum-magnesium hydroxide 225 mg-200 mg/5 mL oral suspension 30 ml PO Q4H PRN PRN GI distress 04/15/23 melatonin 10 mg tablet 10 mg PO QHS 04/15/23 midodrine 10 mg tablet 10 mg PO MOWEFR PRN hypotension 04/15/23 torsemide 60 mg tablet 60 mg PO DAILY 04/15/23 carvedilol 12.5 mg tablet 6.25 mg PO BID 07/01/23 nystatin 100,000 unit/gram topical powder (Nyamyc) 1 applic topical BID PRN PRN SKIN 07/01/23 pantoprazole 40 mg tablet,delayed release 40 mg PO BID 07/01/23 dicyclomine 10 mg capsule 20 mg (2 x 10 mg) PO Q6H PRN PRN abdominal discomfort #30 CAPSULES 09/18/23 hydrocodone-acetaminophen 5-325mg 5mg-325mg 1 tab PO Q6H PRN PRN Pain Score 6-10 2 days #10 tabs 09/18/23 insulin glargine-yfgn 100 unit/mL (3 mL) subcutaneous pen 12 unit (0.12 mL) subcut BID #0 mL 09/18/23 insulin lispro 100 unit/mL subcutaneous pen (Humalog KwikPen (U-100) Insulin) 6 unit (0.06 mL) subcut TIDCM #0 mL 09/18/23 menthol 0.44 %-zinc oxide 20.6 % topical ointment (Calmoseptine) 1 applic topical BID #0 grams 09/18/23 atorvastatin 10 mg tablet 10 mg PO QHS 11/20/23 ertapenem 1 gram solution for injection 1 g IV QMWF 38 days #16 ea 11/25/23 vancomycin 2 gram intravenous solution 1 g IV QMWF 38 days 11/25/23 Hospital Course Summary of Care Provided Hospital Course: Patient admitted for left 5th toe gangrene - had 5th toe amputation on 11/22/23 without complication. Vascular surgery, hospital medicine, nephrology and ID services all consulted. Patient will be discharged on . Weight / BMI Weight Weight: 97 kg Body Mass Index (BMI) 35.6 ABG / Lab / Microbiology Data 11/24/23 06:18 11/25/23 05:50 Laboratory: Laboratory Results - last 24 hr 11/25/23 10:56: POC Glucose 113 H 11/25/23 16:35: POC Glucose 115 H Microbiology: Microbiology 11/22/23 Unknown Bone - 5th Toe Gram Stain - Final 11/22/23 Unknown Bone - 5th Toe Wound Culture - Final ESBL Escherichia coli Enterobacter cloacae complex Staphylococcus epidermidis 11/22/23 Unknown Bone - 5th Toe Anaerobic Culture - Final No anaerobic bacteria isolated. 11/22/23 Unknown Tissue - 5th Toe Gram Stain - Final 11/22/23 Unknown Tissue - 5th Toe Wound Culture - Final Enterococcus faecalis 11/22/23 Unknown Tissue - 5th Toe Anaerobic Culture - Preliminary No growth in 48 hours. D/C Instructions Weight Bearing Status: Partial weight bearing (Partial weightbearing left foot using walking and CAM walker boot when on foot) Keep extremity elevated above heart level: Operative Extremity (Keep left foot elevated with pillows as much as possible) Call your doctor if your incision/area has: Continuous Slow Oozing and Foul Smelling Discharge Call your doctor if you observe: Fever of 101 or Higher, Shortness of breath, Chest pain, Calf discomfort and Uncontrolled pain Please Follow Up With: Reji Dennis DPM When: 1 week in office sooner if needed Meaningful Use Info Meaningful Use Meaningful Use Diagnoses (Choose all that apply): None applicable Ischemic Stroke Statin Dosing Therapy Reference: STATIN DOSE THERAPY REFERENCE: * Patients > 75 years receive moderate or high dose statin therapy. * Patients 75 years or YOUNGER should receive HIGH intensity statin dose unless contraindicated. You will be required to document reason for non-treatment if statin daily dose does not meet guidelines. HIGH DOSE STATIN THERAPY DAILY Atorvastatin > than or = to 40 mg Rosuvastatin > than or = to 20 mg Amlodipine + Atorvastatin > than or = to 2.5/40 mg Ezetimibe + Simvastatin 10/80 mg Simvastatin 80mg Discharge Plan Admission Admit Date/Time: 11/20/23 16:57 Attending Provider: Reji Dennis Primary Care Provider: Velia Archuleta Consulting Providers: Rosey Mendez; Kenji Abreu; Garth Martin; Brittani Clark; Reina Penn NP; Mary Kang; Yovani Johansen; Janiya Rosas; Janiya Bello; Rosalio Jordan; Barrett Strickland; Carlton Morales; Owen Armenta Discharge Orders/Prescriptions Prescriptions: New ertapenem 1 gram Recon Soln 1 g IV QMWF 38 Days Qty: 16 0RF Rx Instructions: stop date 01/03/24. Ertapenem 1gm IV dosed with HD on Mon-Wed-Fri. Weekly bmp, cbc, LFT, vanc trough, and esr. Fax to [phone]. vancomycin 2 gram recon soln 1 g IV QMWF 38 Days Rx Instructions: stop date 01/03/24. Vancomycin 2gm IV dosed with HD on Mon-Wed-Sat. Weekly bmp, cbc, LFT, vanc trough, and esr. Fax to [phone]. Continued bisacodyl [Dulcolax (bisacodyl)] 10 mg suppository 10 mg VT DAILY PRN (Reason: constipation) Qty: 30 0RF ascorbic acid (vitamin C) 500 MG tablet,chewable 1,000 mg PO DAILY Patient Comments: supplement cholecalciferol (vitamin D3) 1,000 UNIT tablet 1,000 unit PO BID Patient Comments: bone health ropinirole 1 mg tablet 1 mg PO DAILY tacrolimus [Prograf] 1 MG capsule 0.5 mg PO BID vitamin B complex 1 EACH tablet 1 tablet PO DAILY sevelamer carbonate [Renvela] 800 MG tablet 1,600 mg PO TIDCM ropinirole 2 MG tablet extended release 24 hr 2 mg PO QHS nitroglycerin 0.4 mg Tablet, Sublingual 0.4 mg sublingual Q5M PRN (Reason: Cardiac/Chest Pain) Qty: 30 0RF sertraline [Zoloft] 50 MG tablet 100 mg PO DAILY Patient Comments: depression biotin 1 mg Capsule 1 mg PO BID albuterol sulfate 1 PUFF inhaler 2 puff IH Q4H PRN PRN (Reason: Sob &/Or Wheezing) 30 Days Qty: 8.6 0RF Otezla 30 mg tablet 30 mg PO DAILY aluminum-magnesium hydroxide 225-200 mg/5 mL suspension 30 ml PO Q4H PRN PRN (Reason: GI distress) melatonin 10 mg tablet 10 mg PO QHS midodrine 10 mg tablet 10 mg PO MOWEFR PRN (Reason: hypotension) Patient Comments: ON HOLD FOR LAST 2-3 WEEKS Rx Instructions: afternoon torsemide 60 mg tablet 60 mg PO DAILY levothyroxine 88 mcg tablet 88 mcg PO DAILY trazodone 100 mg tablet 100 mg PO QHS gabapentin 100 mg capsule 200 mg PO QHS Patient Comments: TAKE 2 CAPSULES BY MOUTH AT BEDTIME sucralfate [Carafate] 1 gram tablet 1 g PO BID Qty: 30 0RF aspirin [Adult Aspirin Regimen] 81 mg tablet,delayed release (DR/EC) 81 mg PO DAILY carvedilol 12.5 mg tablet 6.25 mg PO BID pantoprazole 40 mg tablet,delayed release (DR/EC) 40 mg PO BID nystatin [Nyamyc] 100,000 unit/gram Powder 1 applic topical BID PRN PRN (Reason: SKIN) Protocol: *Topical Application Instructions APPLICATION INSTRUCTIONS: apply to abdominal folds atorvastatin 10 mg tablet 10 mg PO QHS hydrocodone-acetaminophen 5-325 mg Tablet 1 tab PO Q6H PRN PRN (Reason: Pain Score 6-10) 2 Days Qty: 10 0RF insulin lispro [Humalog KwikPen Insulin] 100 unit/mL Insulin Pen 6 unit subcut TIDCM Qty: 0 0RF insulin glargine-yfgn 100 unit/mL (3 mL) Insulin Pen 12 unit subcut BID Qty: 0 0RF menthol-zinc oxide [Calmoseptine] 0.44-20.6 % Ointment 1 applic topical BID Qty: 0 0RF Protocol: *Topical Application Instructions APPLICATION INSTRUCTIONS: buttocks dicyclomine 10 mg capsule 20 mg PO Q6H PRN PRN (Reason: abdominal discomfort) Qty: 30 0RF Referrals / Follow Up: Velia Archuleta MD [Primary Care Provider] - Disposition Disposition (needs filled in before D/C Order can be placed): Home Health Service
--- NOTE | 2023-11-26 09:55 | CASEMGMT ---
Pt dc'd last evening. Received tc from Barbie at [facility] that antibiotic is all straightened out and the ertapenem will be delivered by Saturday. DC summary sent to [facility] at this time.
== END 2023-11-25 18:35 | disposition home health service (06) | DRG 255 ==
LOC: ICU 11-21 15:07 → MS3 11-21 23:12
PROVIDERS: Anesthesiology; Family Medicine; Internal Medicine; Internal Medicine Infectious Disease; Admitting Provider Podiatrist; PCP Internal Medicine; Visit Provider Podiatrist
PROC: 0Y6Y0Z0 Detachment at Left 5th Toe, Complete, Open Approach (ICD-10-PCS; principal; 2023-11-22 09:50)
DX: E11.52 Type 2 diabetes mellitus with diabetic peripheral angiopathy with gangrene (principal); N18.6 End stage renal disease; I12.0 Hypertensive chronic kidney disease with stage 5 chronic kidney disease or end stage renal disease; Z94.4 Liver transplant status; Z16.12 Extended spectrum beta lactamase (ESBL) resistance; D63.1 Anemia in chronic kidney disease; E11.22 Type 2 diabetes mellitus with diabetic chronic kidney disease; E66.01 Morbid (severe) obesity due to excess calories; F32.A Depression, unspecified; E03.9 Hypothyroidism, unspecified; G25.81 Restless legs syndrome; E11.42 Type 2 diabetes mellitus with diabetic polyneuropathy; Z99.2 Dependence on renal dialysis; E78.5 Hyperlipidemia, unspecified; E87.6 Hypokalemia; I25.10 Atherosclerotic heart disease of native coronary artery without angina pectoris; K21.9 Gastro-esophageal reflux disease without esophagitis; Z79.4 Long term (current) use of insulin; F41.9 Anxiety disorder, unspecified; K75.81 Nonalcoholic steatohepatitis (NASH); B95.2 Enterococcus as the cause of diseases classified elsewhere; B95.7 Other staphylococcus as the cause of diseases classified elsewhere; Z68.36 Body mass index [BMI] 36.0-36.9, adult; Z95.5 Presence of coronary angioplasty implant and graft; Z79.82 Long term (current) use of aspirin; Z79.890 Hormone replacement therapy; Z79.891 Long term (current) use of opiate analgesic; Z79.899 Other long term (current) drug therapy; Z23 Encounter for immunization
CPT/HCPCS: 36415; 73630; 75635; 80048; 80053; 80076; 80202; 82962; 82977; 83036; 83735; 84100; 84443; 85025; 85610; 87015; 87070; 87075; 87077; 87102; 87116; 87176; 87186; 87205; 87206; 88305; 88311; 90662; 90937; 93005; 93923; 93926; 94668; 97162; 97166; 97530; 97535; 97802; J7030; J7040; J7050; Q9967; A4216; G0257; J3490

== ENCOUNTER 2024-04-05 16:11 | Emergency (ER) | payer MEDICARE, MEDICAID, SELFPAY ==
[2024-04-05 16:11] VITALS: BP 138/52; PULSE 80; RESP 24; TEMP 36.9; O2SAT 100
--- NOTE | 2024-04-05 16:28 | EKG12_ITS ---
Test Reason : SOB Blood Pressure : */* mmHG Vent. Rate : 78 BPM Atrial Rate : 78 BPM P-R Int : 208 ms QRS Dur : 134 ms QT Int : 416 ms P-R-T Axes : 51 -54 50 degrees QTcB Int : 474 ms Normal sinus rhythm Left bundle branch block Abnormal ECG Confirmed by CHRISTAL FOFANA, ARMANDO ([id number]), communications editor STEPHANIE PHAM ([id number]) on 04/07/2024 8:59:23 AM Referred By: Carlton Greene Confirmed By: ARMANDO SIEGEL MD
--- NOTE | 2024-04-05 17:23 | ED.VIS.DYS ---
HPI History of Present Illness Chief Complaint: Shortness of Breath Informant: patient Onset/Context/Timing Onset: Days (5) Context: gradual Timing: Continuous Quality: Positive for Wheezing Worsened by: Nothing Relieved by: Nothing Associated Symptoms cough, rhinorrhea, subjective, chills and green sputum; Negative for post nasal drip, ear pain, fever, sore throat, clear sputum, white sputum or yellow sputum Chest Pain: Positive for None Narrative Narrative: Patient presents with shortness of breath that has been getting worse over the past 5 days. Patient states she was recently diagnosed with COVID-19. Patient states she missed dialysis 2 days ago because she did not feel well. Patient admits to a cough with some green and brown sputum. Patient states she feels some wheezing. Patient states nothing makes her breathing worse and nothing makes it better. Patient admits to some rhinorrhea and some subjective chills. Patient did not take her temperature. PE Risk Factors: Negative for Cancer, OCP + Smoking + > 35, Prior DVT or PE, Recent immobilization, Recent surgery or Recent travel [facility] Medical History Hypokalemia Ankle sprain Contusion of right shoulder Contusion of right knee Cervical strain, acute History of subdural hematoma (post traumatic) Closed head injury Generalized weakness Ambulatory dysfunction Diabetes Dialysis patient Sleep apnea Easy bruising Restless legs Difficulty swallowing Dietary restriction History of ulceration Shortness of breath on exertion CPAP (continuous positive airway pressure) dependence Influenza A Sepsis Acute dyspnea Pneumonia Anxiety Depression Hypothyroidism Irregular heart beat Hypertension DVT (deep venous thrombosis) Multiple falls Uses wheelchair History of renal dialysis Osteoporosis Cirrhosis Non-smoker ESRD (end stage renal disease) Pancytopenia Chronic renal failure, stage 5 Infection involving suture with abscess Wears glasses Wears dentures Cancer Insulin dependent diabetes mellitus Anemia Hx of Krueger's palsy Back pain Gastric reflux COPD (chronic obstructive pulmonary disease) History of edema History of echocardiogram (~01/22/20) History of stress test (~12/07/19) Cardiology follow-up encounter [facility] History of uterine cancer Hypertension Anemia in chronic kidney disease Home Medications ?Medication ?Instructions ?Recorded ?Last Taken ?Type ascorbic acid (vitamin C) 500 mg 1,000 mg PO DAILY supplement 02/20/15 07/03/23 History chewable tablet cholecalciferol (vitamin D3) 25 1,000 unit PO BID supplement 02/20/15 07/03/23 History mcg (1,000 unit) tablet tacrolimus 1 mg capsule, 0.5 mg PO BID REJECTION 09/10/19 07/04/23 History immediate-release (Prograf) vitamin B complex 1 tablet PO DAILY SUPPLEMENT 09/10/19 07/03/23 History ropinirole 1 mg tablet 1 mg PO DAILY restless legs 05/23/20 07/04/23 History ropinirole 2 mg tablet,extended 2 mg PO QHS restless legs 06/10/20 07/03/23 History release 24 hr sevelamer carbonate 800 mg tablet 1,600 mg PO TIDCM kidney disease 06/10/20 07/03/23 History (Renvela) nitroglycerin 0.4 mg sublingual 0.4 mg sublingual Q5M PRN 04/29/21 Unknown Rx tablet Cardiac/Chest Pain #30 tabs biotin 1 mg capsule 1 mg PO BID supplement 08/11/21 07/03/23 History sertraline 50 mg tablet (Zoloft) 100 mg PO DAILY mood 08/11/21 07/04/23 History albuterol sulfate 90 mcg/actuation 2 puff IH Q4H PRN PRN Sob &/Or 10/25/21 Unknown Rx aerosol inhaler Wheezing 30 days #8.6 grams apremilast 30 mg tablet (Otezla) 30 mg PO DAILY 09/08/22 07/03/23 History levothyroxine 88 mcg tablet 88 mcg PO DAILY 12/31/22 07/04/23 History trazodone 100 mg tablet 100 mg PO QHS 12/31/22 07/03/23 History aspirin 81 mg tablet,delayed 81 mg PO DAILY 01/28/23 06/30/23 History release (Adult Aspirin Regimen) bisacodyl 10 mg rectal suppository 10 mg OH DAILY PRN constipation 02/12/23 07/03/23 Rx (Dulcolax (bisacodyl)) #30 ea aluminum-magnesium hydroxide 225 30 ml PO Q4H PRN PRN GI distress 04/15/23 Unknown History mg-200 mg/5 mL oral suspension midodrine 10 mg tablet 10 mg PO MOWEFR PRN hypotension 04/15/23 Unknown History torsemide 60 mg tablet 60 mg PO DAILY 04/15/23 07/03/23 History carvedilol 12.5 mg tablet 6.25 mg PO BID 07/01/23 07/04/23 History nystatin 100,000 unit/gram topical 1 applic topical BID PRN PRN SKIN 07/01/23 Unknown History powder ([facility]) pantoprazole 40 mg tablet,delayed 40 mg PO BID 07/01/23 07/04/23 History release menthol 0.44 %-zinc oxide 20.6 % 1 applic topical BID #0 grams 09/18/23 Unknown Rx topical ointment (Calmoseptine) vancomycin 2 gram intravenous 1 g IV QMWF 38 days 11/25/23 Unknown Rx solution atorvastatin 40 mg tablet 40 mg PO QHS #30 tabs 01/14/24 Unknown Rx dicyclomine 10 mg capsule 10 mg PO DAILY PRN abdominal 01/14/24 Unknown History discomfort famotidine 20 mg tablet 20 mg PO QDAY 01/14/24 Unknown History insulin glargine-yfgn 100 unit/mL 35 unit subcut BID PRN 01/14/24 Unknown History (3 mL) subcutaneous pen insulin lispro 100 unit/mL 10 unit subcut TIDCM 01/14/24 Unknown History subcutaneous pen (Humalog KwikPen (U-100) Insulin) Allergy/AdvReac Type Severity Reaction Status Date / Time amlodipine (From Norvasc) Allergy Severe Hives Verified 04/05/24 16:15 ampicillin sodium (From Allergy Severe Hives Verified 04/05/24 16:15 Unasyn) buspirone HCl (From BuSpar) Allergy Severe Hives Verified 04/05/24 16:15 cefadroxil (From Duricef) Allergy Severe Hives Verified 04/05/24 16:15 lisinopril Allergy Severe Swelling Verified 04/05/24 16:15 naproxen Allergy Severe Hives Verified 04/05/24 16:15 niacin (From Niaspan Allergy Severe Hives Verified 04/05/24 16:15 Extended-Release) sulbactam sodium (From Allergy Severe Hives Verified 04/05/24 16:15 Unasyn) Sulfa (Sulfonamide Allergy Severe Hives Verified 04/05/24 16:15 Antibiotics) tramadol Allergy Mild Nausea Verified 04/05/24 16:15 cephalexin (From Keflex) Allergy Vomiting Verified 04/05/24 16:15 omeprazole AdvReac Severe Other Verified 04/05/24 16:15 losartan AdvReac Swelling Verified 04/05/24 16:15 Family History Mother Diabetes Anemia Father Hypertension LUNG/RESPIRATORY DISEASE Surgical History History of esophagogastroduodenoscopy (EGD) History of coronary artery stent placement History of cardiac catheterization History of appendectomy S/P arteriovenous (AV) fistula creation (~06/16/20) History of cholecystectomy History of left salpingo-oophorectomy History of radical hysterectomy History of left knee surgery History of ventral hernia repair History of liver transplant Social History housing: apartment current occupational status: disabled Smoking Status: Never smoker substance use type: does not use ROS ROS ED Constitutional Constitutional ED: Reports chills; Denies fever(s) Eyes Eyes: Denies blurry vision or change in vision ENT ENT ED: Reports rhinorrhea; Denies sore throat Cardiovascular Cardiovascular: Denies chest pain or palpitations Respiratory/Chest Respiratory/Chest: Reports cough and dyspnea Gastrointestinal Gastrointestinal: Reports abdominal pain and nausea; Denies vomiting Genitourinary Genitourinary ED: Denies dysuria or hematuria Musculoskeletal Musculoskeletal: Reports back pain; Denies neck pain Integumentary Denies abscess or rash Neurologic Neurologic: Reports headache(s); Denies weakness Allergic/Immunologic Allergic/Immunologic ED: Denies mouth swelling or urticaria EXAM Physical Exam Const Vital Signs: 04/05/24 16:11 04/05/24 17:34 04/05/24 17:46 Temperature 98.5 F Temperature Source Oral Pulse Rate 80 76 Respiratory Rate 24 H 27 H Respiratory Effort Short of Breath Respiratory Depth Shallow Blood Pressure 138/52 H Blood Pressure Mean 80 Pulse Ox 100 91 Oxygen Delivery Method Room Air 04/05/24 18:00 Temperature Temperature Source Pulse Rate 70 Respiratory Rate 16 Respiratory Effort Respiratory Depth Blood Pressure 104/60 Blood Pressure Mean 74 Pulse Ox 98 Oxygen Delivery Method Positive well nourished and well developed General Appearance ED: well developed and NAD HEENT Reports moist mucous membranes Neck supple and no JVD Resp normal respiratory effort and clear to auscultation bilaterally Cardio regular rate and regular rhythm GI non-tender and non-distended Palpation: soft Neuro oriented x3, CN's II-XII intact bilaterally and no sensory deficits noted [place] Coma Scale: document GCS findings Spontaneous Obeys Commands Oriented 15 Sensorium / Orientation: alert Speech: speech normal Motor Exam: strength 5/5 throughout Psych mental status grossly normal MDM MDM MDM Narrative Medical decision making narrative: Differential diagnosis includes congestive heart failure, COVID-19, electrolyte abnormality, cardiac dysrhythmia, cardiac ischemia, and acute on chronic kidney disease. CBC will be obtained to assess for leukocytosis and anemia. Basic metabolic profile will be obtained to assess for electrolyte abnormality and renal function. High-sensitivity troponin will be obtained to assess for cardiac ischemia. BNP will be obtained to assess for congestive heart failure. Chest x-ray will be obtained to assess for pneumonia and congestive heart failure. EKG will be obtained to assess for cardiac dysrhythmia and cardiac ischemia. History & Record Review Additional record(s) reviewed:: Prior labs Lab Data Attestation: I reviewed the patient's lab results. Lab results narrative: CBC was reviewed. There is a pancytopenia with a white blood cell count of 1.9, hemoglobin of 8.5, hematocrit 27.2, and platelets of 78. Basic metabolic profile was reviewed. BUN was 46 and creatinine was 8.14. Potassium was slightly elevated at 5.6. High-sensitivity troponin was reviewed and was normal at 5. BNP was reviewed and was 298.6. Labs: Laboratory Results - last 24 hr 04/05/24 04/05/24 15:22 15:32 WBC 1.9 L RBC 2.73 L Hgb 8.5 L Hct 27.2 L MCV 99.6 H MCH 31.1 MCHC 31.3 L RDW Std Deviation 67.2 H RDW Coeff of Tami 18.5 H Plt Count 78 L MPV 11.5 Immature Gran % (Auto) 0.500 Neut % (Auto) 69.9 Lymph % (Auto) 21.8 [place] % (Auto) 6.2 Eos % (Auto) 1.6 Baso % (Auto) 0.0 Absolute Neuts (auto) 1.4 L Absolute Lymphs (auto) 0.42 L Nucleated RBC % 0 Diff Path Review May foll Platelet Estimate MOD DEC Hypochromasia 2+ Anisocytosis 1+ Stomatocytes RARE Sodium 135 L Potassium 5.6 H Chloride 99 Carbon Dioxide 25.0 Anion Gap 11 BUN 46 H Creatinine 8.14 H* Est GFR (MDRD) Af Amer 6 L Est GFR (MDRD) Non-Af 5 L BUN/Creatinine Ratio 5.7 L Glucose 104 Calcium 8.9 Troponin I High Sens 5 B-Natriuretic Peptide 298.6 H Radiography Diagnostic Testing: Clinical Impression(s) from Imaging Studies Chest X-Ray 04/05/24 17:40 IMPRESSION: 1. No active cardiopulmonary disease. 2. Cardiac enlargement. [facility] and lateral chest x-ray was obtained. There are 2 views. On my independent interpretation, lung gagnon are clear. There is cardiomegaly. Bony thorax is normal. There is no acute process noted. Radiologist also interpreted the x-ray and agrees. EKG Initial EKG: Attestation: I personally reviewed and interpreted this EKG as follows: Interpretation: Sinus Rhythm (With first-degree AV block with a rate of 78), LBBB and Non-Specific ST Changes Comments: EKG was obtained. On my independent interpretation, shows a normal sinus rhythm with a rate of 78. OH interval was slightly prolonged at 208 ms. QRS interval was slightly prolonged at 134 ms. QTc interval was 474 ms. There is left axis deviation at -54. There is a left bundle branch block pattern noted. There are nonspecific ST-T wave changes noted. Prior EKG tracings: available for review Prior: Unchanged (11/22/2023) Treatment and Re-Evaluation :: Patient was given a DuoNeb aerosol here. Patient was advised of her findings. Patient was advised that her laboratory values are consistent with her missed dialysis appointment on Saturday. Patient states she goes in for dialysis at 6 AM tomorrow morning. Patient was advised that this would be quicker if she were discharged home and follow-up with her dialysis appointment tomorrow morning and admitting her to the hospital and doing dialysis here in the hospital. Patient is agreeable with this. Patient was instructed to return if worse in any way. Patient was instructed to take Tylenol as needed for any fevers. Patient understood and was agreeable with the plan. All questions were answered. Discharge Plan Triage Chief Complaint: Shortness of Breath ED Provider: Carlton Greene Dx/Rx/DC Orders Clinical Impression: COVID-19, Chronic kidney disease, Pancytopenia Instructions: Coronavirus Disease 2019 (COVID-19): Overview, ED Chronic Kidney Disease (CKD) Prescriptions: No Action bisacodyl [Dulcolax (bisacodyl)] 10 mg suppository 10 mg OH DAILY PRN (Reason: constipation) Qty: 30 0RF famotidine 20 mg tablet 20 mg PO QDAY dicyclomine 10 mg capsule 10 mg PO DAILY PRN (Reason: abdominal discomfort) Rx Instructions: once a day for pain insulin glargine-yfgn 100 unit/mL (3 mL) insulin pen 35 unit subcut BID PRN insulin lispro [Humalog KwikPen Insulin] 100 unit/mL insulin pen 10 unit subcut TIDCM atorvastatin 40 mg tablet 40 mg PO QHS Qty: 30 2RF ascorbic acid (vitamin C) 500 MG tablet,chewable 1,000 mg PO DAILY Patient Comments: supplement cholecalciferol (vitamin D3) 1,000 UNIT tablet 1,000 unit PO BID Patient Comments: bone health ropinirole 1 mg tablet 1 mg PO DAILY tacrolimus [Prograf] 1 MG capsule 0.5 mg PO BID vitamin B complex 1 EACH tablet 1 tablet PO DAILY sevelamer carbonate [Renvela] 800 MG tablet 1,600 mg PO TIDCM ropinirole 2 MG tablet extended release 24 hr 2 mg PO QHS nitroglycerin 0.4 mg Tablet, Sublingual 0.4 mg sublingual Q5M PRN (Reason: Cardiac/Chest Pain) Qty: 30 0RF sertraline [Zoloft] 50 MG tablet 100 mg PO DAILY Patient Comments: depression biotin 1 mg Capsule 1 mg PO BID albuterol sulfate 1 PUFF inhaler 2 puff IH Q4H PRN PRN (Reason: Sob &/Or Wheezing) 30 Days Qty: 8.6 0RF Otezla 30 mg tablet 30 mg PO DAILY aluminum-magnesium hydroxide 225-200 mg/5 mL suspension 30 ml PO Q4H PRN PRN (Reason: GI distress) midodrine 10 mg tablet 10 mg PO MOWEFR PRN (Reason: hypotension) Patient Comments: ON HOLD FOR LAST 2-3 WEEKS Rx Instructions: afternoon torsemide 60 mg tablet 60 mg PO DAILY levothyroxine 88 mcg tablet 88 mcg PO DAILY trazodone 100 mg tablet 100 mg PO QHS aspirin [Adult Aspirin Regimen] 81 mg tablet,delayed release (DR/EC) 81 mg PO DAILY carvedilol 12.5 mg tablet 6.25 mg PO BID pantoprazole 40 mg tablet,delayed release (DR/EC) 40 mg PO BID nystatin [Nyamyc] 100,000 unit/gram Powder 1 applic topical BID PRN PRN (Reason: SKIN) Protocol: *Topical Application Instructions APPLICATION INSTRUCTIONS: apply to abdominal folds vancomycin 2 gram recon soln 1 g IV QMWF 38 Days Rx Instructions: stop date 01/03/24. Vancomycin 2gm IV dosed with HD on Sat-Sat-Sat. Weekly bmp, cbc, LFT, vanc trough, and esr. Fax to [phone]. menthol-zinc oxide [Calmoseptine] 0.44-20.6 % Ointment 1 applic topical BID Qty: 0 0RF Protocol: *Topical Application Instructions APPLICATION INSTRUCTIONS: buttocks Primary Care Provider: Velia Archuleta Referrals: Velia Archuleta MD [Primary Care Provider] - 3-5 Days Print Language: Bulgarian Disposition Disposition: Home, Self Care
--- NOTE | 2024-04-05 17:40 | RAD_ITS ---
PROCEDURE: CHEST PA AND LATERAL REASON FOR EXAM: Chest pain. Shortness of breath. COVID. TECHNIQUE: Frontal and lateral views of the chest. COMPARISON: Portable chest dated 04/05/2024 FINDINGS: Cardiac monitoring leads overlie the chest wall. Cardiac enlargement. No mediastinal widening. Atherosclerotic aorta. No pneumonia or congestion. Bones and soft tissues are unremarkable. RAD/Chest PA and Lateral IMPRESSION: 1. No active cardiopulmonary disease. 2. Cardiac enlargement. Reading Location: [facility]
[2024-04-05 17:46] VITALS: PULSE 76; RESP 27; O2SAT 91
[2024-04-05 18:00] VITALS: BP 104/60; PULSE 70; RESP 16; O2SAT 98
[2024-04-05 18:03] LABS: Absolute Lymphocyte Count 0.42 X10^3/uL (0.83-4.51); Absolute Neutrophil Count 1.4 X10^3/uL (2.0-7.7); Eosinophil# 0.03 X10^3/uL; Eosinophils% 1.6 % (0-5); Hematocrit 27.2 % (37-47); Hemoglobin 8.5 g/dL (12.0-15.0); Lymphocyte # 0.42 X10^3/ul (0.83-4.51); Lymphocyte % 21.8 % (19-41); Mean Corp Hgb Conc 31.3 g/dL (32-36); Mean Corpuscular Hgb 31.1 pg (27.0-32.0); Mean Corpuscular Volume 99.6 fL (81-99); Mean Platelet Vol. 11.5 fl (6.2-12.0); Monocyte# 0.12 X10^3/uL; Monocyte% 6.2 % (0-10); NRBC Flagged by Analyzer 0 % (0-5); Neutrophil # 1.35 X10^3/uL (2.7-7.7); Neutrophil % 69.9 % (47-70); POSITIVE COUNT YES; POSITIVE DIFFERENTIAL YES; POSITIVE MORPHOLOGY YES; Platelet Count 78 K/mm3 (150-450); RBC Distribution Width CV 18.5 % (11.6-14.6); RBC Distribution Width SD 67.2 fl (35.1-43.9); Red Blood Count 2.73 M/mm3 (4.2-5.4); White Blood Count 1.9 K/mm3 (4.4-11.0)
[2024-04-05 18:07] LABS: Differential Indicated SCAN CRITERIA MET
[2024-04-05 18:28] LABS: Anisocytosis 1+; Hypochromasia 2+; Platelet Estimate MOD DEC (ADEQ); Stomatocyte RARE
[2024-04-05 18:29] LABS: Anion Gap 11 (5-15); BUN 46 mg/dL (7-18); BUN/Creat Ratio 5.7 RATIO (10-20); Calcium,Total 8.9 mg/dL (8.5-10.1); Chloride 99 mmol/L (98-107); Creatinine, Serum 8.14 mg/dL (0.55-1.02); EST Glomerular Filtration Rate 5 mL/min (>60); Est Glom Filt Rate - Afr Amer 6 mL/min (>60); Glucose 104 mg/dL (74-106); Potassium 5.6 mmol/L (3.5-5.1); Sodium Level 135 mmol/L (136-145); Troponin-I HS 5 pg/mL (3.0-54.0)
[2024-04-05 18:35] LABS: BNP,B-Type NATRIURETIC PEPTIDE 298.6 pg/mL (0-100)
[2024-04-05] MEDS: Ipratropium/Albuterol Sulfate 3 ML AMPUL.NEB INHALATION (19:16)
[2024-04-05 19:17] VITALS: PULSE 93; RESP 18
[2024-04-07 13:55] LABS: Pathologist Review Reviewed
== END 2024-04-05 19:33 | disposition home or self-care (01) ==
PROVIDERS: Emergency Provider Emergency Medicine; PCP Internal Medicine; Referring Provider Emergency Medicine; Visit Provider Emergency Medicine
DX: U07.1 COVID-19 (principal); D61.818 Other pancytopenia; N18.5 Chronic kidney disease, stage 5; I12.0 Hypertensive chronic kidney disease with stage 5 chronic kidney disease or end stage renal disease; Z94.4 Liver transplant status; J44.9 Chronic obstructive pulmonary disease, unspecified; E11.22 Type 2 diabetes mellitus with diabetic chronic kidney disease; Z79.4 Long term (current) use of insulin; Z95.5 Presence of coronary angioplasty implant and graft; Z99.2 Dependence on renal dialysis; Z79.82 Long term (current) use of aspirin; Z79.899 Other long term (current) drug therapy
CPT/HCPCS: 71046; 80048; 83880; 84484; 85025; 93005; 94640; 99284

== ENCOUNTER 2024-05-01 02:26 | Emergency (ER) | payer MEDICARE, MEDICAID, SELFPAY ==
[2024-05-01 02:28] VITALS: BP 107/46; PULSE 71; RESP 17; TEMP 35.5; O2SAT 92; BMI 37.5
--- NOTE | 2024-05-01 03:06 | RAD_ITS ---
PROCEDURE: CHEST 1 VIEW (PORTABLE) REASON FOR EXAM: Cough TECHNIQUE: Frontal view of the chest. COMPARISON: 04/05/2024 FINDINGS: Patchy ill-defined airspace opacity in the right mid to lower lung. The left lung appears clear. The cardiac and mediastinal contours appear within limits. RAD/Chest 1 View (Portable) IMPRESSION: Infiltrate right mid to lower lung as above may represent infectious etiology w ith possible aspiration not excluded, clinically correlate.. Reading Location: [id number]
[2024-05-01 03:30] LABS: Basophil# 0.01 X10^3/uL; Basophil% 0.2 % (0-1); Eosinophil# 0.04 X10^3/uL; Eosinophils% 0.7 % (0-5); Hematocrit 28.4 % (37-47); Hemoglobin 8.7 g/dL (12.0-15.0); Lymphocyte % 6.7 % (19-41); Mean Corp Hgb Conc 30.6 g/dL (32-36); Mean Corpuscular Hgb 30.5 pg (27.0-32.0); Mean Corpuscular Volume 99.6 fL (81-99); Mean Platelet Vol. 11.9 fl (6.2-12.0); Monocyte# 0.38 X10^3/uL; Monocyte% 6.4 % (0-10); NRBC Flagged by Analyzer 0 % (0-5); Neutrophil # 5.04 X10^3/uL (2.7-7.7); Neutrophil % 84.8 % (47-70); POSITIVE COUNT YES; POSITIVE DIFFERENTIAL YES; RBC Distribution Width CV 17.6 % (11.6-14.6); RBC Distribution Width SD 63.8 fl (35.1-43.9); Red Blood Count 2.85 M/mm3 (4.2-5.4); White Blood Count 5.9 K/mm3 (4.4-11.0)
[2024-05-01] MEDS: Dextrose 10%-Water 250 ML 999 ML IV (04:06)
[2024-05-01 04:17] LABS: Bedside Glucose 49 mg/dL (74-106)
[2024-05-01 04:30] VITALS: BP 118/52; PULSE 62; RESP 18; O2SAT 100
[2024-05-01 04:45] LABS: Differential Indicated SCAN CRITERIA MET
[2024-05-01 04:47] LABS: Platelet Estimate MOD DEC (ADEQ)
[2024-05-01 04:47] LABS: Anion Gap 12 (5-15); BUN 32 mg/dL (4-19); BUN/Creat Ratio 5.6 RATIO (10-20); Calcium 9.8 mg/dL (7.6-11.0); Carbon Dioxide 26.5 mmol/L (22.0-29.0); Chloride 96 mmol/L (96-108); Creatinine, Serum 5.69 mg/dL (0.70-1.20); EST Glomerular Filtration Rate 8 (>60); Estimated Creatinine Clearance 11.55 ml/min; Glucose 60 mg/dL (70-99); Magnesium 2.7 mg/dL (1.5-2.2); Phosphorus 5.7 mg/dL (2.7-4.5); Potassium 5.3 mmol/L (3.3-5.1); Sodium Level 134 mmol/L (133-145)
[2024-05-01 04:58] LABS: Bedside Glucose 161 mg/dL (74-106)
[2024-05-01 05:52] LABS: Bedside Glucose 133 mg/dL (74-106)
--- NOTE | 2024-05-01 05:57 | EX.ED.DYSGE1 ---
HPI History of Present Illness Chief Complaint: Hypoglycemia Informant: patient and EMS Narrative Narrative: Patient is a 68-year-old female with past medical history of insulin-dependent diabetes as well as hypertension and end-stage renal disease on dialysis. EMS reports they were called by the patient's secondary to fatigue and confusion. Reportedly her blood sugar was approximately 50 and squad got 70. The patient states that she has had poor oral intake recently but that her Dexcom blood sugar meter has been telling her her sugar level is 2-300 and therefore she still been taking her insulin as directed. She denies any sick symptoms such as fevers chills cough congestion shortness of breath but with the persistent fatigue and hypoglycemia she was sent in for evaluation [facility] Medical History Hypokalemia Ankle sprain Contusion of right shoulder Contusion of right knee Cervical strain, acute History of subdural hematoma (post traumatic) Closed head injury Generalized weakness Ambulatory dysfunction Diabetes Dialysis patient Sleep apnea Easy bruising Restless legs Difficulty swallowing Dietary restriction History of ulceration Shortness of breath on exertion CPAP (continuous positive airway pressure) dependence Influenza A Sepsis Acute dyspnea Pneumonia Anxiety Depression Hypothyroidism Irregular heart beat Hypertension DVT (deep venous thrombosis) Multiple falls Uses wheelchair History of renal dialysis Osteoporosis Cirrhosis Non-smoker ESRD (end stage renal disease) Pancytopenia Chronic renal failure, stage 5 Infection involving suture with abscess Wears glasses Wears dentures Cancer Insulin dependent diabetes mellitus Anemia Hx of Krueger's palsy Back pain Gastric reflux COPD (chronic obstructive pulmonary disease) History of edema History of echocardiogram (~01/22/20) History of stress test (~12/07/19) Cardiology follow-up encounter [facility] History of uterine cancer Hypertension Anemia in chronic kidney disease Home Medications ?Medication ?Instructions ?Recorded ?Last Taken ?Type ascorbic acid (vitamin C) 500 mg 1,000 mg PO DAILY supplement 02/20/15 07/03/23 History chewable tablet cholecalciferol (vitamin D3) 25 1,000 unit PO BID supplement 02/20/15 07/03/23 History mcg (1,000 unit) tablet tacrolimus 1 mg capsule, 0.5 mg PO BID REJECTION 09/10/19 07/04/23 History immediate-release (Prograf) vitamin B complex 1 tablet PO DAILY SUPPLEMENT 09/10/19 07/03/23 History ropinirole 1 mg tablet 1 mg PO DAILY restless legs 05/23/20 07/04/23 History ropinirole 2 mg tablet,extended 2 mg PO QHS restless legs 06/10/20 07/03/23 History release 24 hr sevelamer carbonate 800 mg tablet 1,600 mg PO TIDCM kidney disease 06/10/20 07/03/23 History (Renvela) nitroglycerin 0.4 mg sublingual 0.4 mg sublingual Q5M PRN 04/29/21 Unknown Rx tablet Cardiac/Chest Pain #30 tabs biotin 1 mg capsule 1 mg PO BID supplement 08/11/21 07/03/23 History sertraline 50 mg tablet (Zoloft) 100 mg PO DAILY mood 08/11/21 07/04/23 History albuterol sulfate 90 mcg/actuation 2 puff IH Q4H PRN PRN Sob &/Or 10/25/21 Unknown Rx aerosol inhaler Wheezing 30 days #8.6 grams apremilast 30 mg tablet (Otezla) 30 mg PO DAILY 09/08/22 07/03/23 History levothyroxine 88 mcg tablet 88 mcg PO DAILY 12/31/22 07/04/23 History trazodone 100 mg tablet 100 mg PO QHS 12/31/22 07/03/23 History aspirin 81 mg tablet,delayed 81 mg PO DAILY 01/28/23 06/30/23 History release (Adult Aspirin Regimen) bisacodyl 10 mg rectal suppository 10 mg TX DAILY PRN constipation 02/12/23 07/03/23 Rx (Dulcolax (bisacodyl)) #30 ea aluminum-magnesium hydroxide 225 30 ml PO Q4H PRN PRN GI distress 04/15/23 Unknown History mg-200 mg/5 mL oral suspension midodrine 10 mg tablet 10 mg PO MOWEFR PRN hypotension 04/15/23 Unknown History torsemide 60 mg tablet 60 mg PO DAILY 04/15/23 07/03/23 History carvedilol 12.5 mg tablet 6.25 mg PO BID 07/01/23 07/04/23 History nystatin 100,000 unit/gram topical 1 applic topical BID PRN PRN SKIN 07/01/23 Unknown History powder ([facility]) pantoprazole 40 mg tablet,delayed 40 mg PO BID 07/01/23 07/04/23 History release menthol 0.44 %-zinc oxide 20.6 % 1 applic topical BID #0 grams 09/18/23 Unknown Rx topical ointment (Calmoseptine) vancomycin 2 gram intravenous 1 g IV QMWF 38 days 11/25/23 Unknown Rx solution atorvastatin 40 mg tablet 40 mg PO QHS #30 tabs 01/14/24 Unknown Rx dicyclomine 10 mg capsule 10 mg PO DAILY PRN abdominal 01/14/24 Unknown History discomfort famotidine 20 mg tablet 20 mg PO QDAY 01/14/24 Unknown History insulin glargine-yfgn 100 unit/mL 35 unit subcut BID PRN diabetes 01/14/24 Unknown History (3 mL) subcutaneous pen insulin lispro 100 unit/mL 10 unit subcut TIDCM 01/14/24 Unknown History subcutaneous pen (Humalog KwikPen (U-100) Insulin) doxycycline hyclate 100 mg tablet 100 mg PO BID 7 days #14 tabs 05/01/24 Unknown Rx Allergy/AdvReac Type Severity Reaction Status Date / Time amlodipine (From Norvasc) Allergy Severe Hives Verified 05/01/24 02:28 ampicillin sodium (From Allergy Severe Hives Verified 05/01/24 02:28 Unasyn) buspirone HCl (From BuSpar) Allergy Severe Hives Verified 05/01/24 02:28 cefadroxil (From Duricef) Allergy Severe Hives Verified 05/01/24 02:28 lisinopril Allergy Severe Swelling Verified 05/01/24 02:28 naproxen Allergy Severe Hives Verified 05/01/24 02:28 niacin (From Niaspan Allergy Severe Hives Verified 05/01/24 02:28 Extended-Release) sulbactam sodium (From Allergy Severe Hives Verified 05/01/24 02:28 Unasyn) Sulfa (Sulfonamide Allergy Severe Hives Verified 05/01/24 02:28 Antibiotics) tramadol Allergy Mild Nausea Verified 05/01/24 02:28 cephalexin (From Keflex) Allergy Vomiting Verified 05/01/24 02:28 omeprazole AdvReac Severe Other Verified 05/01/24 02:28 losartan AdvReac Swelling Verified 05/01/24 02:28 Family History Mother Diabetes Anemia Father Hypertension LUNG/RESPIRATORY DISEASE Surgical History History of esophagogastroduodenoscopy (EGD) History of coronary artery stent placement History of cardiac catheterization History of appendectomy S/P arteriovenous (AV) fistula creation (~06/16/20) History of cholecystectomy History of left salpingo-oophorectomy History of radical hysterectomy History of left knee surgery History of ventral hernia repair History of liver transplant Social History housing: apartment current occupational status: disabled Smoking Status: Never smoker substance use type: does not use ROS ROS ED Constitutional Constitutional ED: Reports other Details: Positive fatigue ; Denies chills or fever(s) Eyes Eyes: Denies change in vision ENT ENT ED: Denies rhinorrhea or sore throat Cardiovascular Cardiovascular: Denies chest pain Respiratory/Chest Respiratory/Chest: Denies cough or dyspnea Gastrointestinal Gastrointestinal: Reports nausea; Denies abdominal pain, diarrhea or vomiting Musculoskeletal Musculoskeletal: Denies myalgias Integumentary Denies rash Neurologic Neurologic: Denies headache(s) Hematologic/Lymphatic Hematologic/Lymphatic: Reports easy bleeding and easy bruising EXAM Physical Exam Const Vital Signs: 05/01/24 02:28 05/01/24 02:28 05/01/24 04:30 Temperature 96 F L Temperature Source Temporal Pulse Rate 71 62 Respiratory Rate 17 18 Respiratory Effort Normal Respiratory Pattern Normal Blood Pressure 107/46 L 118/52 L Blood Pressure Mean 66 74 Pulse Ox 92 100 Oxygen Delivery Method Room Air Room Air Positive well nourished, well developed and obese General Appearance ED: well developed; Negative for pallor Nutritional Appearance: obese HEENT Reports dry mucous membranes HEENT Narrative: Mucous membranes are dry and tacky but show no secondary changes to suggest infection Mouth ED: Yes dry mucous membranes Mouth: dry mucous membranes Eyes PERRL and EOMs intact bilaterally General Eye ED: Negative for scleral icterus Neck supple Neck Narrative: No nuchal rigidity or meningeal signs Resp normal respiratory effort and clear to auscultation bilaterally Cardio regular rate and regular rhythm GI normal to inspection, nondistended, normoactive bowel sounds, non-tender, non-distended and no masses Auscultation: normoactive bowel sounds Palpation: soft Extremity normal to inspection Neuro oriented x3, CN's II-XII intact bilaterally and no sensory deficits noted Sensorium / Orientation: alert Motor Exam: strength 5/5 throughout Psych mental status grossly normal Skin no rashes or lesions noted General Skin Exam: Negative for jaundice or pallor MDM MDM MDM Narrative Medical decision making narrative: Patient arrived to the ER with stable vitals. She reported she is fed fatigue and poor oral intake but that her Dexcom is still reading high for her blood sugars and therefore she has been continuing her insulin. In order to ensure that there is not a secondary reason for her fatigue such as acute on chronic anemia electrolyte abnormalities such as hyperkalemia or hypomagnesemia or a potential infectious process basic blood work was obtained. Labs showed normal white count of 5.9 without left shift going against a systemic infectious process. However on her chest x-ray there is question of potential pneumonia which could lead to a paradoxical drop in her blood sugar. However based on her normal white count without left shift or fever upon arrival there is low concern for systemic infection/sepsis. Her hemoglobin is low at 8.7 but chart review reveals this is her baseline and goes against acute blood loss anemia. Electrolytes are slightly elevated consistent with her need for dialysis today but they are not elevated at a clinically significant level that would require emergent dialysis or transfer. Her blood sugar is low at 49 consistent with her recurrent hypoglycemia. The patient was given dextrose as well as food and with this her blood sugar elevated and remained in a stable value. Her Dexcom was checked at the same time we did an Accu-Chek in the ER in the ER our value is reading approximately 130 and her Dexcom is reading in the mid 200s indicating that the equipment is malfunctioning which is why she is continuing to use insulin when she does not need it. At this time as she does not have acute infectious process or clinically significant electrolyte abnormality and she is not requiring a D5 drip there is no need for admission to the hospital and she is otherwise safe for discharge and understands that she needs to change out her Dexcom so she does not keep getting falsely elevated reads History & Record Review Discussion w/independent historian: EMS personnel and Patient Lab Data Attestation: I reviewed the patient's lab results. Labs: Laboratory Results - last 24 hr 05/01/24 05/01/24 05/01/24 02:55 03:55 03:58 WBC 5.9 RBC 2.85 L Hgb 8.7 L Hct 28.4 L MCV 99.6 H MCH 30.5 MCHC 30.6 L RDW Std Deviation 63.8 H RDW Coeff of Tami 17.6 H Plt Count TNP MPV 11.9 Immature Gran % (Auto) 1.200 H Neut % (Auto) 84.8 H Lymph % (Auto) 6.7 L [place] % (Auto) 6.4 Eos % (Auto) 0.7 Baso % (Auto) 0.2 Absolute Neuts (auto) 5.0 Absolute Lymphs (auto) 0.40 L Nucleated RBC % 0 Differential Comment COMMENT Platelet Estimate MOD DEC Sodium 134 Potassium 5.3 H Chloride Direct 96 Carbon Dioxide 26.5 Anion Gap 12 BUN 32 H Creatinine 5.69 H Estim Creat Clear Calc 11.55 Est GFR (MDRD) Non-Af 8 L BUN/Creatinine Ratio 5.6 L Glucose 60 L Calcium 9.8 Phosphorus 5.7 H Magnesium 2.7 H POC Glucose 49 L 05/01/24 05/01/24 04:34 05:34 WBC RBC Hgb Hct MCV MCH MCHC RDW Std Deviation RDW Coeff of Tami Plt Count MPV Immature Gran % (Auto) Neut % (Auto) Lymph % (Auto) [place] % (Auto) Eos % (Auto) Baso % (Auto) Absolute Neuts (auto) Absolute Lymphs (auto) Nucleated RBC % Differential Comment Platelet Estimate Sodium Potassium Chloride Direct Carbon Dioxide Anion Gap BUN Creatinine Estim Creat Clear Calc Est GFR (MDRD) Non-Af BUN/Creatinine Ratio Glucose Calcium Phosphorus Magnesium POC Glucose 161 H 133 H Radiography Diagnostic Testing: Clinical Impression(s) from Imaging Studies Chest X-Ray 05/01/24 03:06 IMPRESSION: Infiltrate right mid to lower lung as above may represent infectious etiology with possible aspiration not excluded, clinically correlate.. Reading Location: [id number] Chest x-ray as interpreted by the emergency medicine physician reveals questionable infiltrate in the right lower lung Discharge Plan Triage Chief Complaint: Hypoglycemia ED Provider: Chapincito Dougherty Dx/Rx/DC Orders Clinical Impression: Hypoglycemia, End stage renal disease on dialysis, Insulin dependent diabetes mellitus, Right lower lobe pneumonia Instructions: ED Diabetic Insulin Reaction, ED Pneumonia (Adult) Prescriptions: New doxycycline hyclate 100 mg tablet 100 mg PO BID 7 Days Qty: 14 0RF No Action bisacodyl [Dulcolax (bisacodyl)] 10 mg suppository 10 mg TX DAILY PRN (Reason: constipation) Qty: 30 0RF famotidine 20 mg tablet 20 mg PO QDAY dicyclomine 10 mg capsule 10 mg PO DAILY PRN (Reason: abdominal discomfort) Rx Instructions: once a day for pain insulin glargine-yfgn 100 unit/mL (3 mL) insulin pen 35 unit subcut BID PRN (Reason: diabetes) insulin lispro [Humalog KwikPen Insulin] 100 unit/mL insulin pen 10 unit subcut TIDCM atorvastatin 40 mg tablet 40 mg PO QHS Qty: 30 2RF ascorbic acid (vitamin C) 500 MG tablet,chewable 1,000 mg PO DAILY Patient Comments: supplement cholecalciferol (vitamin D3) 1,000 UNIT tablet 1,000 unit PO BID Patient Comments: bone health ropinirole 1 mg tablet 1 mg PO DAILY tacrolimus [Prograf] 1 MG capsule 0.5 mg PO BID vitamin B complex 1 EACH tablet 1 tablet PO DAILY sevelamer carbonate [Renvela] 800 MG tablet 1,600 mg PO TIDCM ropinirole 2 MG tablet extended release 24 hr 2 mg PO QHS nitroglycerin 0.4 mg Tablet, Sublingual 0.4 mg sublingual Q5M PRN (Reason: Cardiac/Chest Pain) Qty: 30 0RF sertraline [Zoloft] 50 MG tablet 100 mg PO DAILY Patient Comments: depression biotin 1 mg Capsule 1 mg PO BID albuterol sulfate 1 PUFF inhaler 2 puff IH Q4H PRN PRN (Reason: Sob &/Or Wheezing) 30 Days Qty: 8.6 0RF Otezla 30 mg tablet 30 mg PO DAILY aluminum-magnesium hydroxide 225-200 mg/5 mL suspension 30 ml PO Q4H PRN PRN (Reason: GI distress) midodrine 10 mg tablet 10 mg PO MOWEFR PRN (Reason: hypotension) Patient Comments: ON HOLD FOR LAST 2-3 WEEKS Rx Instructions: afternoon torsemide 60 mg tablet 60 mg PO DAILY levothyroxine 88 mcg tablet 88 mcg PO DAILY trazodone 100 mg tablet 100 mg PO QHS aspirin [Adult Aspirin Regimen] 81 mg tablet,delayed release (DR/EC) 81 mg PO DAILY carvedilol 12.5 mg tablet 6.25 mg PO BID pantoprazole 40 mg tablet,delayed release (DR/EC) 40 mg PO BID nystatin [Nyamyc] 100,000 unit/gram Powder 1 applic topical BID PRN PRN (Reason: SKIN) Protocol: *Topical Application Instructions APPLICATION INSTRUCTIONS: apply to abdominal folds vancomycin 2 gram recon soln 1 g IV QMWF 38 Days Rx Instructions: stop date 01/03/24. Vancomycin 2gm IV dosed with HD on Sat-Sat-Sat. Weekly bmp, cbc, LFT, vanc trough, and esr. Fax to [phone]. menthol-zinc oxide [Calmoseptine] 0.44-20.6 % Ointment 1 applic topical BID Qty: 0 0RF Protocol: *Topical Application Instructions APPLICATION INSTRUCTIONS: buttocks Primary Care Provider: Velia Archuleta Referrals: Velia Archuleta MD [Primary Care Provider] - Activity Restrictions/Additional Instructions: Your Dexcom is malfunctioning giving you a higher blood sugar than it should. For example the test in the ER had a blood sugar of 133 and your Dexcom read 260. This is leading you to take insulin at a higher dose or when you do not need to. Please replace your Dexcom to ensure you are having accurate reads and therefore taking in an appropriate dose of insulin. Your x-ray also showed a small right lower lobe pneumonia and therefore take the antibiotic as directed. If you have worsening of symptoms or any further concerns please return to the ER for repeat evaluation Print Language: Guatemalan Disposition Disposition: Home, Self Care Discharge Date/Time: 05/01/24 06:15
[2024-05-01 06:00] VITALS: BP 134/74
[2024-05-01 06:15] VITALS: BP 134/74; PULSE 68; RESP 16; TEMP 37; O2SAT 98
[2024-05-01 06:39] LABS: Bedside Glucose 123 mg/dL (74-106)
[2024-05-01 07:13] LABS: Bedside Glucose 73 mg/dL (74-106)
== END 2024-05-01 06:15 | disposition home or self-care (01) ==
PROVIDERS: Emergency Provider Emergency Medicine; PCP Internal Medicine; Visit Provider Emergency Medicine
DX: E11.649 Type 2 diabetes mellitus with hypoglycemia 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 (principal); N18.6 End stage renal disease; I12.0 Hypertensive chronic kidney disease with stage 5 chronic kidney disease or end stage renal disease; Z94.4 Liver transplant status; J44.9 Chronic obstructive pulmonary disease, unspecified; Z79.4 Long term (current) use of insulin; E11.22 Type 2 diabetes mellitus with diabetic chronic kidney disease; J18.9 Pneumonia, unspecified organism; E66.9 Obesity, unspecified; Z68.37 Body mass index [BMI] 37.0-37.9, adult; Z95.5 Presence of coronary angioplasty implant and graft; Z99.2 Dependence on renal dialysis; Z79.899 Other long term (current) drug therapy
CPT/HCPCS: 71045; 80048; 82962; 83735; 84100; 85025; 87631; 96374; 99285; A4216

== ENCOUNTER 2024-05-06 08:31 | Inpatient (IN) | payer MEDICARE, MEDICAID, SELFPAY ==
[2024-05-06] VITALS (7 sets, daily range): BP systolic 90–145; BP diastolic 54–83; PULSE 77–83; RESP 16–18; TEMP 36.8–37.1; O2SAT 93–100; BMI 36.4; BMI 35.9
--- NOTE | 2024-05-06 08:57 | RAD_ITS ---
PROCEDURE: FEMUR MIN 2 VIEWS REASON FOR EXAM: Left hip pain following a fall. TECHNIQUE: Four views of the left femur obtained. COMPARISON: None. FINDINGS: LEFT FEMUR: There is an undisplaced oblique fracture of the left basilar cervical aspect of the left femur with cephalic migration of the distal fracture fragment. Soft tissue swelling. RAD/Femur Min 2 Views IMPRESSION: Acute left basicervical fracture of the proximal left femur with cephalic migra tion of the distal fracture fragment. Soft tissue swelling. Reading Location: [id number]
--- NOTE | 2024-05-06 08:57 | RAD_ITS ---
PROCEDURE: PELVIS 1 OR 2 VIEWS REASON FOR EXAM: Left hip pain following a fall. TECHNIQUE: 1 view(s) of the pelvis. COMPARISON: None FINDINGS: There is evidence of an acute basil cervical fracture of the proximal left femur. Surgical clips are seen in the pelvis. Protrusio acetabula of the right hip joint. RAD/Pelvis 1 or 2 Views IMPRESSION: Acute basicervical fracture of the proximal left femur. Reading Location: [id number]
--- NOTE | 2024-05-06 08:59 | ED.VIS.LOWEX ---
HPI History of Present Illness HPI Narrative: 68-year-old female was walking down steps felt a pop in her left hip but now has pain and is unable to walk. Denies any prior left hip injury or surgery. No recent fall. She has previously broken her right hip. She has a substantial past medical history of end-stage renal disease, dialysis, DVT, subdural and diabetes. Chief Complaint: Lower Extremity Injury Occured/Mechanism Mechanism/Context: No injury and No blunt trauma Onset/Context/Timing Onset: Today Context: Sudden Onset Timing: Continuous Quality of Pain: Sharp Current Severity: Moderate Maximum Severity: Moderate Associated Symptoms Associated Symptoms: Negative for Parasthesia, Weakness or Loss of Funtion Narrative Narrative: 68-year-old female history of end-stage renal disease dialysis, subdural, diabetes was walking down steps felt a pop and now has left hip pain and unable to ambulate. Took a Vicodin at home prior to arrival. Prior similar symptoms: No Recent Illness/Hospitalization: No PFSH PFSH Medical History Hypokalemia Ankle sprain Contusion of right shoulder Contusion of right knee Cervical strain, acute History of subdural hematoma (post traumatic) Closed head injury Generalized weakness Ambulatory dysfunction Diabetes Dialysis patient Sleep apnea Easy bruising Restless legs Difficulty swallowing Dietary restriction History of ulceration Shortness of breath on exertion CPAP (continuous positive airway pressure) dependence Influenza A Sepsis Acute dyspnea Pneumonia Anxiety Depression Hypothyroidism Irregular heart beat Hypertension DVT (deep venous thrombosis) Multiple falls Uses wheelchair History of renal dialysis Osteoporosis Cirrhosis Non-smoker ESRD (end stage renal disease) Pancytopenia Chronic renal failure, stage 5 Infection involving suture with abscess Wears glasses Wears dentures Cancer Insulin dependent diabetes mellitus Anemia Hx of Krueger's palsy Back pain Gastric reflux COPD (chronic obstructive pulmonary disease) History of edema History of echocardiogram (~01/22/20) History of stress test (~12/07/19) Cardiology follow-up encounter [facility] History of uterine cancer Hypertension Anemia in chronic kidney disease Home Medications ?Medication ?Instructions ?Recorded ?Last Taken ?Type ascorbic acid (vitamin C) 500 mg 1,000 mg PO DAILY supplement 02/20/15 05/05/24 History chewable tablet cholecalciferol (vitamin D3) 25 1,000 unit PO BID supplement 02/20/15 05/05/24 History mcg (1,000 unit) tablet vitamin B complex 1 tablet PO DAILY SUPPLEMENT 09/10/19 05/05/24 History ropinirole 1 mg tablet 1 mg PO DAILY restless legs 05/23/20 05/05/24 History sevelamer carbonate 800 mg tablet 2,400 mg PO TIDCM kidney disease 06/10/20 05/05/24 History (Renvela) nitroglycerin 0.4 mg sublingual 0.4 mg sublingual Q5M PRN 04/29/21 Unknown Rx tablet Cardiac/Chest Pain #30 tabs biotin 1 mg capsule 1 mg PO BID supplement 08/11/21 05/05/24 History albuterol sulfate 90 mcg/actuation 2 puff IH Q4H PRN PRN Sob &/Or 10/25/21 Unknown Rx aerosol inhaler Wheezing 30 days #8.6 grams apremilast 30 mg tablet (Otezla) 30 mg PO DAILY 09/08/22 05/05/24 History levothyroxine 88 mcg tablet 88 mcg PO DAILY 12/31/22 05/05/24 History trazodone 100 mg tablet 100 mg PO QHS 12/31/22 05/05/24 History aspirin 81 mg tablet,delayed 81 mg PO DAILY 01/28/23 05/05/24 History release (Adult Aspirin Regimen) bisacodyl 10 mg rectal suppository 10 mg VA DAILY PRN constipation 02/12/23 07/03/23 Rx (Dulcolax (bisacodyl)) #30 ea midodrine 10 mg tablet 10 mg PO MOWEFR PRN hypotension 04/15/23 05/04/24 History carvedilol 12.5 mg tablet 6.25 mg PO BID 07/01/23 05/05/24 History nystatin 100,000 unit/gram topical 1 applic topical BID PRN PRN SKIN 07/01/23 Unknown History powder ([facility]) pantoprazole 40 mg tablet,delayed 40 mg PO BID 07/01/23 05/05/24 History release vancomycin 2 gram intravenous 1 g IV QMWF 38 days 11/25/23 Unknown Rx solution atorvastatin 40 mg tablet 40 mg PO QHS #30 tabs 01/14/24 05/05/24 Rx dicyclomine 10 mg capsule 10 mg PO DAILY PRN abdominal 01/14/24 Unknown History discomfort famotidine 20 mg tablet 20 mg PO QDAY 01/14/24 05/05/24 History insulin lispro 100 unit/mL 10 unit subcut TIDCM 01/14/24 Unknown History subcutaneous pen (Humalog KwikPen (U-100) Insulin) doxycycline monohydrate 100 mg 100 mg PO BID 05/06/24 05/06/24 History capsule gabapentin 100 mg capsule 200 mg PO QHS 05/06/24 05/05/24 History ropinirole 2 mg tablet 2 mg PO DAILY 05/06/24 05/05/24 History sertraline 100 mg tablet 100 mg PO DAILY 05/06/24 05/05/24 History suvorexant 10 mg tablet (Belsomra) 10 mg PO QHS 05/06/24 05/05/24 History tacrolimus 0.5 mg capsule, 0.5 mg PO Q12H 05/06/24 05/05/24 History immediate-release torsemide 20 mg tablet 60 mg PO .QAM 05/06/24 05/05/24 History vitamin B complex-vitamin C-folic 1 tab PO DAILY 05/06/24 05/05/24 History acid 0.8 mg tablet (Danae-Chet) Allergy/AdvReac Type Severity Reaction Status Date / Time amlodipine (From Norvasc) Allergy Severe Hives Verified 05/01/24 02:28 ampicillin sodium (From Allergy Severe Hives Verified 05/01/24 02:28 Unasyn) buspirone HCl (From BuSpar) Allergy Severe Hives Verified 05/01/24 02:28 cefadroxil (From Duricef) Allergy Severe Hives Verified 05/01/24 02:28 lisinopril Allergy Severe Swelling Verified 05/01/24 02:28 naproxen Allergy Severe Hives Verified 05/01/24 02:28 niacin (From Niaspan Allergy Severe Hives Verified 05/01/24 02:28 Extended-Release) sulbactam sodium (From Allergy Severe Hives Verified 05/01/24 02:28 Unasyn) Sulfa (Sulfonamide Allergy Severe Hives Verified 05/01/24 02:28 Antibiotics) tramadol Allergy Mild Nausea Verified 05/01/24 02:28 cephalexin (From Keflex) Allergy Vomiting Verified 05/01/24 02:28 omeprazole AdvReac Severe Other Verified 05/01/24 02:28 losartan AdvReac Swelling Verified 05/01/24 02:28 Family History Mother Diabetes Anemia Father Hypertension LUNG/RESPIRATORY DISEASE Surgical History History of esophagogastroduodenoscopy (EGD) History of coronary artery stent placement History of cardiac catheterization History of appendectomy S/P arteriovenous (AV) fistula creation (~06/16/20) History of cholecystectomy History of left salpingo-oophorectomy History of radical hysterectomy History of left knee surgery History of ventral hernia repair History of liver transplant Social History housing: apartment current occupational status: disabled Smoking Status: Never smoker substance use type: does not use ROS ROS ED ROS Narrative Denies recent illness. Denies fever. Denies hip redness or swelling. Constitutional Constitutional ED: Denies chills or fever(s) Eyes Eyes: Denies blurry vision ENT ENT ED: Denies ear pain Cardiovascular Cardiovascular: Denies chest pain Respiratory/Chest Respiratory/Chest: Denies cough Gastrointestinal Gastrointestinal: Denies abdominal pain Genitourinary Genitourinary ED: Denies dysuria Musculoskeletal Musculoskeletal: Denies arthralgias Integumentary Denies abscess or Abrasions Neurologic Neurologic: Denies headache(s) Psychiatric Psychiatric: Denies anxiety Endocrine Endocrinology: Denies polydipsia Hematologic/Lymphatic Hematologic/Lymphatic: Denies easy bleeding Allergic/Immunologic Allergic/Immunologic ED: Denies mouth swelling EXAM Physical Exam Narrative Exam Narrative: 70-year-old female sitting upright in bed. Vital signs are stable afebrile. Complaint of atraumatic left hip pain. HEENT exam pupils round reactive light. Moist membranes. Neck nontender. Lungs clear to auscultation bilaterally. Heart regular rhythm rate about 75 no murmur. Chest wall ribs nontender. Abdomen soft nontender. Back nontender. She has tenderness to the left hip. There is no deformity. No redness or swelling. She does not want to move the hip due to pain. She also has pain along the femur. But no deformity. She has normal dorsi plantarflexion of both lower extremities. There is edema both lower extremities which is chronic. 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 Neurologically she is awake and alert no focal motor deficits. Const Vital Signs: 05/06/24 08:32 05/06/24 10:40 Temperature 98.3 F Temperature Source Oral Pulse Rate 77 79 Respiratory Rate 18 16 Blood Pressure 143/58 H 90/70 Blood Pressure Mean 86 76 Pulse Ox 100 100 Oxygen Delivery Method Room Air Positive well nourished and well developed; Negative for cachectic, contractures or unkempt General Appearance ED: well developed and NAD; Negative for unkempt, cachectic or contractures Nutritional Appearance: Negative for cachectic HEENT Reports moist mucous membranes normocephalic and atraumatic Eyes PERRL Neck full ROM and supple Chest Wall inspection of chest normal and palpation of chest normal Resp normal respiratory effort, no retractions and clear to auscultation bilaterally Cardio regular rate, regular rhythm, S1 normal heart sound, S2 normal heart sound and no murmurs GI non-tender, non-distended and no masses Auscultation: normoactive bowel sounds Palpation: soft; Negative for tender, guarding or rebound tenderness present Back/Spine no CVA tenderness General Back: Negative for CVA tenderness Cervical Spine: Negative for cervical spine tenderness Thoracic Spine / Upper Back: Negative for thoracic spinal tenderness Lumbar Spine / Lower Back: Negative for lumbar spinal tenderness Extremity Negative for normal to inspection or full ROM Extremity Narrative: Tenderness left hip. No gross deformity. Decreased range of motion. Will not do range of motion due to pain. Neither actively or passively. Her lower leg ankle and foot are nontender. Trace bilateral edema. Normal dorsi plantarflexion. There is no redness or warmth or swelling to the left hip. General Extremety ED: Yes edema and weight-bearing difficulty; Negative for cyanosis General Extremity: edema and weight-bearing difficulty; Negative for cyanosis Neuro oriented x3 and CN's II-XII intact bilaterally Sensorium / Orientation: alert, oriented to person, oriented to place and oriented to time Motor Exam: strength 5/5 throughout Psych mental status grossly normal Appearance: Negative for unkempt Skin no wounds Lesions: no lesions Rashes: no rashes Trauma: Negative for abrasion or laceration MDM MDM MDM Narrative Medical decision making narrative: 68-year-old female atraumatic left hip and femur pain. X-rays being obtained. She took a Vicodin at home says not relieving her pain she took that to plus hours ago. Should be given IV morphine and Zofran. On the patient's x-rays she has a basicervical left hip fracture. I spoke to the [facility]. She never had a hip fracture a year ago. She had a sacral fracture that was treated nonsurgically because that is how it is treated. Patient will be admitted here to the hospitalist. I spoke to orthopedic Dr. Crump he will be on board. He did request that I get a CAT scan of the patient's hip to rule out any pathologic fracture. History & Record Review Additional record(s) reviewed:: Prior inpatient record, Prior outpatient record, Prior ED visit, Prior labs and No prior records Lab Data Attestation: I reviewed the patient's lab results. Lab results narrative: CBC shows a white count of 3.7. H&H 8.9 and 28. Platelets of 89,000. PT/INR of 13 and 1. PTT is 26. Labs: Laboratory Results - last 24 hr 05/06/24 10:35 WBC 3.7 L RBC 2.89 L Hgb 8.9 L Hct 28.8 L MCV 99.7 H MCH 30.8 MCHC 30.9 L RDW Std Deviation 63.3 H RDW Coeff of Tami 17.9 H Plt Count 89 L MPV 11.2 Immature Gran % (Auto) 1.400 H Neut % (Auto) 74.8 H Lymph % (Auto) 13.4 L Elliott % (Auto) 7.4 Eos % (Auto) 2.5 Baso % (Auto) 0.5 Absolute Neuts (auto) 2.7 Absolute Lymphs (auto) 0.49 L Nucleated RBC % 0.5 PT 13.7 INR 1.0 APTT 26.6 Radiography Diagnostic Testing: Clinical Impression(s) from Imaging Studies Femur X-Ray 05/06/24 08:57 IMPRESSION: Acute left basicervical fracture of the proximal left femur with cephalic migration of the distal fracture fragment. Soft tissue swelling. Reading Location: [id number] Pelvis X-Ray 05/06/24 08:57 IMPRESSION: Acute basicervical fracture of the proximal left femur. Reading Location: [id number] Left hip x-ray multiple views interpreted by myself and the radiologist is a left hip basicervical fracture. Left femur x-ray of the femur itself other than the hip fracture was unremarkable. Turbid by myself and the radiologist. Discharge Plan Dx/Rx/DC Orders Clinical Impression: Closed fracture of left hip, History of liver transplant, Chronic kidney disease with end stage renal failure on dialysis Disposition Disposition: Acute Care Hospital [facility]
[2024-05-06] MEDS: Ondansetron 4 MG/2 ML Vial IV (09:48)
[2024-05-06] MEDS: morphine 8 MG/ML Syringe 6 MG IV ×2 (09:48→10:30)
--- NOTE | 2024-05-06 10:44 | PCM.HP.STD ---
HPI - General General Date of Admission: 05/06/24 Date of Service: 05/06/24 Chief Complaint: Left hip pain HPI Narrative CHRISTINA KUO, is a 68 F who presents left hip pain. Patient has significant past medical comorbidities including history of renal transplant currently on immunosuppression therapy, end-stage renal disease on dialysis on Wednesdays and Fridays. Per patient she was carrying out her usual daily activities when she had a sudden pop in her left hip. She denied any trauma prior to this event. Per patient she nearly fell to the ground she was however called by her . In view of the persistent pain patient presented to the emergency department imaging studies obtained on admission did show Acute left basicervical fracture of the proximal left femur with cephalic migration of the distal fracture fragment. Soft tissue swelling. Orthopedic surgeon on-call Dr. Crump was notified patient admitted to regular nursing floor for further management [facility] Medical History Hypokalemia Ankle sprain Contusion of right shoulder Contusion of right knee Cervical strain, acute History of subdural hematoma (post traumatic) Closed head injury Generalized weakness Ambulatory dysfunction Diabetes Dialysis patient Sleep apnea Easy bruising Restless legs Difficulty swallowing Dietary restriction History of ulceration Shortness of breath on exertion CPAP (continuous positive airway pressure) dependence Influenza A Sepsis Acute dyspnea Pneumonia Anxiety Depression Hypothyroidism Irregular heart beat Hypertension DVT (deep venous thrombosis) Multiple falls Uses wheelchair History of renal dialysis Osteoporosis Cirrhosis Non-smoker ESRD (end stage renal disease) Pancytopenia Chronic renal failure, stage 5 Infection involving suture with abscess Wears glasses Wears dentures Cancer Insulin dependent diabetes mellitus Anemia Hx of Krueger's palsy Back pain Gastric reflux COPD (chronic obstructive pulmonary disease) History of edema History of echocardiogram (~01/22/20) History of stress test (~12/07/19) Cardiology follow-up encounter [facility] History of uterine cancer Hypertension Anemia in chronic kidney disease Home Medications ?Medication ?Instructions ?Recorded ?Last Taken ?Type ascorbic acid (vitamin C) 500 mg 1,000 mg PO DAILY supplement 02/20/15 05/05/24 History chewable tablet cholecalciferol (vitamin D3) 25 1,000 unit PO BID supplement 02/20/15 05/05/24 History mcg (1,000 unit) tablet vitamin B complex 1 tablet PO DAILY SUPPLEMENT 09/10/19 05/05/24 History ropinirole 1 mg tablet 1 mg PO DAILY restless legs 05/23/20 05/05/24 History sevelamer carbonate 800 mg tablet 2,400 mg PO TIDCM kidney disease 06/10/20 05/05/24 History (Renvela) nitroglycerin 0.4 mg sublingual 0.4 mg sublingual Q5M PRN 04/29/21 Unknown Rx tablet Cardiac/Chest Pain #30 tabs biotin 1 mg capsule 1 mg PO BID supplement 08/11/21 05/05/24 History albuterol sulfate 90 mcg/actuation 2 puff IH Q4H PRN PRN Sob &/Or 10/25/21 Unknown Rx aerosol inhaler Wheezing 30 days #8.6 grams apremilast 30 mg tablet (Otezla) 30 mg PO DAILY 09/08/22 05/05/24 History levothyroxine 88 mcg tablet 88 mcg PO DAILY 12/31/22 05/05/24 History trazodone 100 mg tablet 100 mg PO QHS 12/31/22 05/05/24 History aspirin 81 mg tablet,delayed 81 mg PO DAILY 01/28/23 05/05/24 History release (Adult Aspirin Regimen) bisacodyl 10 mg rectal suppository 10 mg [place] DAILY PRN constipation 02/12/23 07/03/23 Rx (Dulcolax (bisacodyl)) #30 ea midodrine 10 mg tablet 10 mg PO MOWEFR PRN hypotension 04/15/23 05/04/24 History carvedilol 12.5 mg tablet 6.25 mg PO BID 07/01/23 05/05/24 History nystatin 100,000 unit/gram topical 1 applic topical BID PRN PRN SKIN 07/01/23 Unknown History powder ([facility]) pantoprazole 40 mg tablet,delayed 40 mg PO BID 07/01/23 05/05/24 History release vancomycin 2 gram intravenous 1 g IV QMWF 38 days 11/25/23 Unknown Rx solution atorvastatin 40 mg tablet 40 mg PO QHS #30 tabs 01/14/24 05/05/24 Rx dicyclomine 10 mg capsule 10 mg PO DAILY PRN abdominal 01/14/24 Unknown History discomfort famotidine 20 mg tablet 20 mg PO QDAY 01/14/24 05/05/24 History insulin lispro 100 unit/mL 10 unit subcut TIDCM 01/14/24 Unknown History subcutaneous pen (Humalog KwikPen (U-100) Insulin) doxycycline monohydrate 100 mg 100 mg PO BID 05/06/24 05/06/24 History capsule gabapentin 100 mg capsule 200 mg PO QHS 05/06/24 05/05/24 History ropinirole 2 mg tablet 2 mg PO DAILY 05/06/24 05/05/24 History sertraline 100 mg tablet 100 mg PO DAILY 05/06/24 05/05/24 History suvorexant 10 mg tablet (Belsomra) 10 mg PO QHS 05/06/24 05/05/24 History tacrolimus 0.5 mg capsule, 0.5 mg PO Q12H 05/06/24 05/05/24 History immediate-release torsemide 20 mg tablet 60 mg PO .QAM 05/06/24 05/05/24 History vitamin B complex-vitamin C-folic 1 tab PO DAILY 05/06/24 05/05/24 History acid 0.8 mg tablet (Danae-Chet) Allergy/AdvReac Type Severity Reaction Status Date / Time amlodipine (From Norvasc) Allergy Severe Hives Verified 05/01/24 02:28 ampicillin sodium (From Allergy Severe Hives Verified 05/01/24 02:28 Unasyn) buspirone HCl (From BuSpar) Allergy Severe Hives Verified 05/01/24 02:28 cefadroxil (From Duricef) Allergy Severe Hives Verified 05/01/24 02:28 lisinopril Allergy Severe Swelling Verified 05/01/24 02:28 naproxen Allergy Severe Hives Verified 05/01/24 02:28 niacin (From Niaspan Allergy Severe Hives Verified 05/01/24 02:28 Extended-Release) sulbactam sodium (From Allergy Severe Hives Verified 05/01/24 02:28 Unasyn) Sulfa (Sulfonamide Allergy Severe Hives Verified 05/01/24 02:28 Antibiotics) tramadol Allergy Mild Nausea Verified 05/01/24 02:28 cephalexin (From Keflex) Allergy Vomiting Verified 05/01/24 02:28 omeprazole AdvReac Severe Other Verified 05/01/24 02:28 losartan AdvReac Swelling Verified 05/01/24 02:28 Family History Mother Diabetes Anemia Father Hypertension LUNG/RESPIRATORY DISEASE Surgical History History of esophagogastroduodenoscopy (EGD) History of coronary artery stent placement History of cardiac catheterization History of appendectomy S/P arteriovenous (AV) fistula creation (~06/16/20) History of cholecystectomy History of left salpingo-oophorectomy History of radical hysterectomy History of left knee surgery History of ventral hernia repair History of liver transplant Social History housing: apartment current occupational status: disabled Smoking Status: Never smoker substance use type: does not use ROS ROS Narrative GENERAL: denies fever, chills, night sweats, weight loss, anorexia HEENT: denies headache, sinus congestion, or drainage, dysphagia RESPIRATORY: denies cough, sputum production, shortness of breath, dyspnea on exertion CARDIAC: denies chest pain, palpitations, orthopnea, PND GASTROINTESTINAL: denies abdominal pain, nausea, vomiting, melena, GENITOURINARY: denies dysuria, urgency, frequency, heamaturia EXTREMITY: denies swelling MUSCULOSKELETAL: Left hip pain NEUROLOGIC: denies focal numbness, weakness, tingling HEMATOLOGIC: denies easy bruising and/or hemorrhage INTEGUMENT: denies rashes PSYCHIATRIC: denies suicidal or homicidal ideation Vital Signs Vital Signs Vital Signs: 05/06/24 08:32 05/06/24 10:40 Temperature 98.3 F Temperature Source Oral Pulse Rate 77 79 Respiratory Rate 18 16 Blood Pressure 143/58 H 90/70 Blood Pressure Mean 86 76 Pulse Ox 100 100 Oxygen Delivery Method Room Air Weight Weight: 99.3 kg Body Mass Index (BMI) 36.4 Physical Exam Narrative GENERAL: cooperative HEENT: Atraumatic; normocephalic EYES; Anicteric, Normal Conjunctiva NECK; supple, normal thyroid, RESPIRATORY: Diminished to auscultation CARDIOVASCULAR: Regular S1 S2, GI: soft, normoactive bowel sounds, : No Renal angle tenderness; EXTREMITIES: No edema, no clubbing, MUSCULOSKELETAL: no muscle wasting NEURO: Awake; no lateralizing signs. SKIN: No Rash PSYCH; Flat affect Results Lab / Micro Data 05/06/24 10:35 05/06/24 10:35 Imaging Radiology Impression Femur X-Ray 05/06/24 08:57 IMPRESSION: Acute left basicervical fracture of the proximal left femur with cephalic migration of the distal fracture fragment. Soft tissue swelling. Reading Location: [id number] Pelvis X-Ray 05/06/24 08:57 IMPRESSION: Acute basicervical fracture of the proximal left femur. Reading Location: [id number] Assessment & Plan Assessment/Plan (1) Closed fracture of left hip: QUALIFIERS: Encounter type: initial encounter Qualified Code(s): S72.002A - Fracture of unspecified part of neck of left femur, initial encounter for closed fracture PLAN: Plan Patient is a 68-year-old lady presenting with sudden onset of left hip pain imaging studies obtained on admission did show Acute basicervical fracture of the proximal left femur. 1. Acute left hip fracture ? Secondary to pathological fracture. Imaging studies obtained on admission did show Acute left basicervical fracture of the proximal left femur with cephalic migration of the distal fracture fragment. Soft tissue swelling. Subsequent imaging studies with CT demonstrated multiple osteolytic lesions noted involving the femoral head and neck as well as the anterior and posterior aspect of the acetabulum. Patient has been admitted to regular nursing floor initial management including immobilization, pain medications and consultation placed to orthopedic surgery. Patient remains at moderate to high risk for surgical intervention given her significant comorbidities including diabetes mellitus type 2, end-stage renal disease on hemodialysis as well as history of renal transplant on the finding of suspected metastatic disease. Patient has however been optimized for surgical intervention. Risk involved in the procedure to be discussed by orthopedic surgery 2. 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 Patient is currently on tacrolimus. Per patient recent repeat imaging studies demonstrated recurrence of cirrhotic lesions. Patient is followed by GI as outpatient 3. Urinary disease ? Patient is on hemodialysis Wednesdays and Fridays consult placed to Dr. Strickland with nephrology for dialysis orders 4. Diabetes mellitus type 2 ? Patient is on scheduled Premeal insulin, given anticipated surgical intervention in a.m. patient short acting insulin held. Placed on Accu-Cheks before meals and at bedtime with sliding scale coverage 5. History of cervical and uterine cancer ? Status post abdominal hysterectomy 6. Findings of possible metastatic disease with pathological fracture ? Consult has been placed to oncology to guide workup 7. GERD ? Patient is on PPI 8. Diabetic polyneuropathy ? Patient is on gabapentin 9. Class II obesity with BMI of 36 ? Complicating care weight loss advised 10. Hypertension ? Blood pressure controlled, home medications continued with dose adjustment as needed 11. Dyslipidemia ?Patient is on statin therapy, continued at home dose 12. Coronary artery disease ? With previous PCI. Patient is on guideline directed medical therapy including statin therapy beta-blockers and aspirin 14. Pancytopenia ? Secondary to chronic liver disease monitoring indices with daily CBC with differential 15. DVT prophylaxis ? Bilateral SCDs for now Time spent in the patient's overall evaluation,decision-making process, review of diagnostic data, adjustment of management, discussion with other providers, nursing nursing and ancillary staff involved in patient's care documentation, 75Minutes Advance planning; did discuss with the patient and family regarding advanced directives as well as CODE STATUS. Did explain the various scenarios involved ( FULL CODE, DNR CCA, DNR CCA with no intubation, and DNR CC and what each meant) patient elected to to remain full code with CPR and intubation if warranted. Order was placed. Time spent on discussion 16 minutes. Charges/Coding Multi Select Codes Visit Charges Visit Charges: 30478 Init Hosp L3 Hospitalists' Procedures Procedures: 53674 Advncd Care Plan 30 Min
[2024-05-06 10:55] LABS: Absolute Lymphocyte Count 0.49 X10^3/uL (0.83-4.51); Absolute Neutrophil Count 2.7 X10^3/uL (2.0-7.7); Basophil# 0.02 X10^3/uL; Basophil% 0.5 % (0-1); Eosinophil# 0.09 X10^3/uL; Eosinophils% 2.5 % (0-5); Hematocrit 28.8 % (37-47); Hemoglobin 8.9 g/dL (12.0-15.0); Lymphocyte # 0.49 X10^3/ul (0.83-4.51); Lymphocyte % 13.4 % (19-41); Mean Corp Hgb Conc 30.9 g/dL (32-36); Mean Corpuscular Hgb 30.8 pg (27.0-32.0); Mean Corpuscular Volume 99.7 fL (81-99); Mean Platelet Vol. 11.2 fl (6.2-12.0); Monocyte# 0.27 X10^3/uL; Monocyte% 7.4 % (0-10); NRBC Flagged by Analyzer 0.5 % (0-5); Neutrophil # 2.73 X10^3/uL (2.7-7.7); Neutrophil % 74.8 % (47-70); POSITIVE COUNT YES; POSITIVE DIFFERENTIAL YES; Platelet Count 89 K/mm3 (150-450); RBC Distribution Width CV 17.9 % (11.6-14.6); RBC Distribution Width SD 63.3 fl (35.1-43.9); Red Blood Count 2.89 M/mm3 (4.2-5.4); White Blood Count 3.7 K/mm3 (4.4-11.0)
[2024-05-06 11:02] LABS: Partial Thromboplast Time 26.6 Seconds (24.1-36.2); Prothrombin Time (Protime)PT. 13.7 SECONDS (11.7-14.9)
--- NOTE | 2024-05-06 11:21 | CT_ITS ---
PROCEDURE: COMPUTED TOMOGRAPHY OF THE LEFT LOWER EXTREMITY REASON FOR EXAM: EVALUATE FOR LEFT HIP FRACTURE. FELT A POP IN LEFT HIP WHILE GOING DOWNSTAIRS. LEG GAVE OUT. TECHNIQUE: Contiguous axial scans of 2.5 mm slice thicknesses. Sagittal and coronal reconstruction images were obtained. One or more dose reduction techniques were used (e.g., automated exposure control, adjustment of mA and/or kv according to patient size, use of iterative reconstruction technique). IV CONTRAST: NOT GIVEN COMPARISON: LEFT FEMUR DATED 05/06/2024. FINDINGS: Bones: Multiple osteolytic lesions are noted involving the femoral head and acetabulum. The largest lesion measures 3.1 x 2.1 cm. A transverse transcervical fracture is noted with varus deformity. This fracture extends through and osteolytic lesion. Joints: Femoral head is in good position in the acetabulum. Soft Tissues: Atherosclerotic calcific disease CT/Extremity Lower without Contra IMPRESSION: 1. A pathologic transcervical fracture of the proximal left femur with varus d eformity. 2. Multiple osteolytic lesions are noted involving the femoral head and neck a s well as the anterior and posterior aspect of the acetabulum. Reading Location: [place] [id number]
[2024-05-06 11:40] LABS: ALB/GLOB Ratio 1.2 RATIO (0.9-2.4); AST(SGOT) 19 U/L (<=31); Alanine Aminotransfer ALT/SGPT 17 U/L (<=34); Albumin, Serum 3.4 g/dL (3.4-4.8); Alkaline Phosphatase 101 U/L (35-104); Anion Gap 13 (5-15); BUN 24 mg/dL (4-19); BUN/Creat Ratio 4.9 RATIO (10-20); Calcium,Total 9.6 mg/dL (7.6-11.0); Carbon Dioxide 28.9 mmol/L (21.0-32.0); Chloride 95 mmol/L (98-108); Creatinine, Serum 4.88 mg/dL (0.70-1.20); EST Glomerular Filtration Rate 9 (>60); Estimated Creatinine Clearance 13.23 ml/min (50-250); Globulin 2.7 g/dL (2.2-4.2); Glucose 159 mg/dL (70-99); Potassium 4.4 mmol/L (3.3-5.1); Protein, Total 6.1 g/dL (5.9-8.4); Sodium Level 136 mmol/L (133-145)
[2024-05-06 13:51] LABS: Bedside Glucose 138 mg/dL (74-106)
--- NOTE | 2024-05-06 14:48 | CONS.ORTHO ---
HPI Consult Data Date of Consult: 05/06/24 HPI Narrative HPI Narrative: CHRISTINA KUO, is a 68 F who presented to [facility] ED this morning with acute onset left hip pain. No prior pain. H/o remote cervical CA s/p hysterectomy, ESRD on HD, DM, Liver transplant, PAD. Does not walk. Will transfer. Was transferring today and felt her left hip snap. She tried to treat pain at home with [place] but was not touching her pain. XRs revealed femoral neck fx. Per ED physician, transfer was attempted to [facility] where she had her transplant, but was going to be a several day wait d/t lack of beds. Hospitalist agreed to admit. I saw patient in consultation. Pain was controlled. Denies any other pain. Denies new numbness, tingling. Does have peripheral neuropathy from DM. Denies h/o anesthetic complication. Remote h/o RLE DVT. [facility] Medical History Hypokalemia Ankle sprain Contusion of right shoulder Contusion of right knee Cervical strain, acute History of subdural hematoma (post traumatic) Closed head injury Generalized weakness Ambulatory dysfunction Diabetes Dialysis patient Sleep apnea Easy bruising Restless legs Difficulty swallowing Dietary restriction History of ulceration Shortness of breath on exertion CPAP (continuous positive airway pressure) dependence Influenza A Sepsis Acute dyspnea Pneumonia Anxiety Depression Hypothyroidism Irregular heart beat Hypertension DVT (deep venous thrombosis) Multiple falls Uses wheelchair History of renal dialysis Osteoporosis Cirrhosis Non-smoker ESRD (end stage renal disease) Pancytopenia Chronic renal failure, stage 5 Infection involving suture with abscess Wears glasses Wears dentures Cancer Insulin dependent diabetes mellitus Anemia Hx of Krueger's palsy Back pain Gastric reflux COPD (chronic obstructive pulmonary disease) History of edema History of echocardiogram (~01/22/20) History of stress test (~12/07/19) Cardiology follow-up encounter LIVER [employer]ANSPLANT History of uterine cancer Hypertension Anemia in chronic kidney disease Home Medications ?Medication ?Instructions ?Recorded ?Last Taken ?Type ascorbic acid (vitamin C) 500 mg 1,000 mg PO DAILY supplement 02/20/15 05/05/24 History chewable tablet cholecalciferol (vitamin D3) 25 1,000 unit PO BID supplement 02/20/15 05/05/24 History mcg (1,000 unit) tablet vitamin B complex 1 tablet PO DAILY SUPPLEMENT 09/10/19 05/05/24 History ropinirole 1 mg tablet 1 mg PO DAILY restless legs 05/23/20 05/05/24 History sevelamer carbonate 800 mg tablet 2,400 mg PO TIDCM kidney disease 06/10/20 05/05/24 History (Renvela) nitroglycerin 0.4 mg sublingual 0.4 mg sublingual Q5M PRN 04/29/21 Unknown Rx tablet Cardiac/Chest Pain #30 tabs biotin 1 mg capsule 1 mg PO BID supplement 08/11/21 05/05/24 History albuterol sulfate 90 mcg/actuation 2 puff IH Q4H PRN PRN Sob &/Or 10/25/21 Unknown Rx aerosol inhaler Wheezing 30 days #8.6 grams apremilast 30 mg tablet (Otezla) 30 mg PO DAILY 09/08/22 05/05/24 History levothyroxine 88 mcg tablet 88 mcg PO DAILY 12/31/22 05/05/24 History trazodone 100 mg tablet 100 mg PO QHS 12/31/22 05/05/24 History aspirin 81 mg tablet,delayed 81 mg PO DAILY 01/28/23 05/05/24 History release (Adult Aspirin Regimen) bisacodyl 10 mg rectal suppository 10 mg [place] DAILY PRN constipation 02/12/23 07/03/23 Rx (Dulcolax (bisacodyl)) #30 ea midodrine 10 mg tablet 10 mg PO MOWEFR PRN hypotension 04/15/23 05/04/24 History carvedilol 12.5 mg tablet 6.25 mg PO BID 07/01/23 05/05/24 History nystatin 100,000 unit/gram topical 1 applic topical BID PRN PRN SKIN 07/01/23 Unknown History powder ([facility]) pantoprazole 40 mg tablet,delayed 40 mg PO BID 07/01/23 05/05/24 History release vancomycin 2 gram intravenous 1 g IV QMWF 38 days 11/25/23 Unknown Rx solution atorvastatin 40 mg tablet 40 mg PO QHS #30 tabs 01/14/24 05/05/24 Rx dicyclomine 10 mg capsule 10 mg PO DAILY PRN abdominal 01/14/24 Unknown History discomfort famotidine 20 mg tablet 20 mg PO QDAY 01/14/24 05/05/24 History insulin lispro 100 unit/mL 10 unit subcut TIDCM 01/14/24 Unknown History subcutaneous pen (Humalog KwikPen (U-100) Insulin) doxycycline monohydrate 100 mg 100 mg PO BID 05/06/24 05/06/24 History capsule gabapentin 100 mg capsule 200 mg PO QHS 05/06/24 05/05/24 History ropinirole 2 mg tablet 2 mg PO DAILY 05/06/24 05/05/24 History sertraline 100 mg tablet 100 mg PO DAILY 05/06/24 05/05/24 History suvorexant 10 mg tablet (Belsomra) 10 mg PO QHS 05/06/24 05/05/24 History tacrolimus 0.5 mg capsule, 0.5 mg PO Q12H 05/06/24 05/05/24 History immediate-release torsemide 20 mg tablet 60 mg PO .QAM 05/06/24 05/05/24 History vitamin B complex-vitamin C-folic 1 tab PO DAILY 05/06/24 05/05/24 History acid 0.8 mg tablet (Danae-Chet) Allergy/AdvReac Type Severity Reaction Status Date / Time amlodipine (From Norvasc) Allergy Severe Hives Verified 05/01/24 02:28 ampicillin sodium (From Allergy Severe Hives Verified 05/01/24 02:28 Unasyn) buspirone HCl (From BuSpar) Allergy Severe Hives Verified 05/01/24 02:28 cefadroxil (From Duricef) Allergy Severe Hives Verified 05/01/24 02:28 lisinopril Allergy Severe Swelling Verified 05/01/24 02:28 naproxen Allergy Severe Hives Verified 05/01/24 02:28 niacin (From Niaspan Allergy Severe Hives Verified 05/01/24 02:28 Extended-Release) sulbactam sodium (From Allergy Severe Hives Verified 05/01/24 02:28 Unasyn) Sulfa (Sulfonamide Allergy Severe Hives Verified 05/01/24 02:28 Antibiotics) tramadol Allergy Mild Nausea Verified 05/01/24 02:28 cephalexin (From Keflex) Allergy Vomiting Verified 05/01/24 02:28 omeprazole AdvReac Severe Other Verified 05/01/24 02:28 losartan AdvReac Swelling Verified 05/01/24 02:28 Family History Mother Diabetes Anemia Father Hypertension LUNG/RESPIRATORY DISEASE Surgical History History of esophagogastroduodenoscopy (EGD) History of coronary artery stent placement History of cardiac catheterization History of appendectomy S/P arteriovenous (AV) fistula creation (~06/16/20) History of cholecystectomy History of left salpingo-oophorectomy History of radical hysterectomy History of left knee surgery History of ventral hernia repair History of liver transplant Social History housing: apartment current occupational status: disabled Smoking Status: Never smoker substance use type: does not use ROS ROS Narrative 12 pt ROS obtained, neg unless noted in HPI. Vital Signs Vital Signs Vital Signs: 05/06/24 08:32 05/06/24 10:40 05/06/24 12:41 Temperature 98.3 F 98.3 F Temperature Source Oral Pulse Rate 77 79 77 Respiratory Rate 18 16 18 Respiratory Effort Respiratory Depth Respiratory Pattern Blood Pressure 143/58 H 90/70 145/63 H Blood Pressure Mean 86 76 90 Blood Pressure Source Blood Pressure Position Blood Pressure Location Pulse Ox 100 100 98 Oxygen Delivery Method Room Air 05/06/24 13:11 05/06/24 13:11 Temperature 98.7 F Temperature Source Oral Pulse Rate 82 Respiratory Rate 18 18 Respiratory Effort Non-Labored Short of Breath Respiratory Depth Normal Respiratory Pattern Normal Blood Pressure 142/54 H Blood Pressure Mean 83 Blood Pressure Source Monitor Blood Pressure Position Semi-Fowlers Blood Pressure Location Right Arm Pulse Ox 93 Oxygen Delivery Method Room Air Room Air Weight Weight: 215 lb 9.793 oz Body Mass Index (BMI) 35.9 Physical Exam Narrative GEN - A&Ox3, NAD HEENT - NCAT, EOMI CV - RRR LUNGS - CTAB ABD - S/NT/ND NEURO - CN II-XII intact EXT - Nontender BUE, RLE. Pelvis stable, nontender. No C spine TTP. LLE - Pain with logroll. SILT L3-S1. DF, PF, EHL 5/5. DP 2+, BCR. Calf soft, nontender. No rashes/lesions. Lab / Micro Data 05/06/24 10:35 05/06/24 10:35 Labs: Laboratory Results - last 24 hr 05/06/24 10:35: WBC 3.7 L, RBC 2.89 L, Hgb 8.9 L, Hct 28.8 L, MCV 99.7 H, MCH 30.8, MCHC 30.9 L, RDW Std Deviation 63.3 H, RDW Coeff of Tami 17.9 H, Plt Count 89 L, MPV 11.2, Immature Gran % (Auto) 1.400 H, Neut % (Auto) 74.8 H, Lymph % (Auto) 13.4 L, [place] % (Auto) 7.4, Eos % (Auto) 2.5, Baso % (Auto) 0.5, Absolute Neuts (auto) 2.7, Absolute Lymphs (auto) 0.49 L, Nucleated RBC % 0.5, PT 13.7, INR 1.0, APTT 26.6, Sodium 136, Potassium 4.4, Chloride 95 L, Carbon Dioxide 28.9, Anion Gap 13, BUN 24 H, Creatinine 4.88 H, Estim Creat Clear Calc 13.23 L, Est GFR (MDRD) Non-Af 9 L, BUN/Creatinine Ratio 4.9 L, Glucose 159 H, Calcium 9.6, Total Bilirubin 0.50, AST 19, ALT 17, Alkaline Phosphatase 101, Total Protein 6.1, Albumin 3.4, Globulin 2.7, Albumin/Globulin Ratio 1.2, Blood Type AB NEGATIVE, Antibody Screen NEGATIVE 05/06/24 13:31: POC Glucose 138 H Imaging Radiology Impression Femur X-Ray 05/06/24 08:57 IMPRESSION: Acute left basicervical fracture of the proximal left femur with cephalic migration of the distal fracture fragment. Soft tissue swelling. Reading Location: [id number] Pelvis X-Ray 05/06/24 08:57 IMPRESSION: Acute basicervical fracture of the proximal left femur. Reading Location: [id number] Lower Extremity CT 05/06/24 11:21 IMPRESSION: 1. A pathologic transcervical fracture of the proximal left femur with varus deformity. 2. Multiple osteolytic lesions are noted involving the femoral head and neck as well as the anterior and posterior aspect of the acetabulum. Reading Location: [place] [id number] Assessment & Plan Assessment/Plan (1) Pathologic fracture of femoral neck: QUALIFIERS: Encounter type: initial encounter Laterality: left Qualified Code(s): M84.452A - Pathological fracture, left femur, initial encounter for fracture PLAN: Lytic lesions noted throughout femur and pelvis. History consistent with pathologic fx. DDx includes metastatic dz, myleoma, lymphoma. CT chest/abd/pelvis ordered. Recommend oncology consult. Plan for L hip becky arthroplasty. Bone biopsy to be sent intraop. Reviewed risks, benefits, alternative of surgery. Risks include but are not limited to bleeding, infx, fx, instability, leg length discrepancy, loss of life or limb, neurovascular injury, loosening of implants, peristent pain. Informed consent obtained. I explained my concern for cancer and that we would need to run more tests to determine the extent and type. She seemed understanding. I reviewed that she is at high risk for perioperative complication and mortality with her comorbidities. She expressed understanding. NPO after midnight JACOB Espinoza video production engineer to OR Bedrest
--- NOTE | 2024-05-06 15:30 | CT_ITS ---
PROCEDURE: COMPUTED TOMOGRAPHY OF THE CHEST, ABDOMEN, AND PELVIS REASON FOR EXAM: UNKNOWN PRIMARY. OSSEOUS METASTASES. TECHNIQUE: Contiguous axial scans of mm slice thicknesses. Sagittal and coronal reconstruction images were obtained. One or more dose reduction techniques were used (e.g., automated exposure control, adjustment of mA and/or kv according to patient size, use of iterative reconstruction technique). CONTRAST: ISOVUE-300. 75 ML. COMPARISON: PLAIN FILMS DATED 05/06/2024 OF THE FEMUR AND PELVIS. CHEST RADIOGRAPH DATED 05/01/2024. FINDINGS: CT CHEST: Lymph nodes: No mediastinal hilar or axillary lymphadenopathy. Heart and Vasculature: Cardiac enlargement. No pericardial effusion. Thoracic aorta and pulmonary arteries are unremarkable. Severe coronary artery calcifications. Lungs and Airways: Areas of scattered ground-glass opacification are noted in the right lung. A 0.4 cm noncalcified micronodule is seen in the left lower lobe, axial image 81. Subpleural broad-based nodule in the posteromedial aspect of the right lung base measures 1.7 cm, axial image 80. Pleura: No pleural effusion. No pneumothorax. Bones: Osteolytic lesions in the heads of both clavicles, worse on the right. CT ABDOMEN/PELVIS: Liver: Unremarkable. Gallbladder: Surgically absent Spleen: Marked splenomegaly. Pancreas: Unremarkable. Adrenals: Unremarkable. Kidneys: Atrophic changes of both kidneys. Right renal cyst measuring 1.7 cm, axial image 42. Bilateral nonobstructing nephrolithiasis. Bladder: Unremarkable. Reproductive Organs: Surgically absent uterus. Bowel: Unremarkable. Appendix: Normal. Lymph nodes: No suspicious lymph node enlargement. Vasculature: Severe atherosclerotic calcific changes of the visceral arteries. Moderate atherosclerotic calcific changes in the aortoiliac arteries. Peritoneum / Retroperitoneum: No ascites. No free air. Abdominal wall: A left anterior abdominal wall fat containing ventral hernia measuring 10.1 x 3.9 cm, axial image 69. Soft tissue stranding is seen in the subcutaneous fat of the abdomen and pelvis. Bones: Osteolytic lesions are noted in the bilateral hips. Pathologic transcervical fracture of the left hip. Osteolytic lesions in the heads of both clavicles, worse on the right and also in the left humeral head. Osteolytic lesions are also noted in the lower lumbar vertebral bodies. Levoscoliosis of the lumbar spine. Multilevel degenerative disc disease. CT/CT Chest, Abd, Pel w/Contrast IMPRESSION: 1. Noncalcified left lower lobe micronodule. A subpleural nodule in the right lower lobe. Consider three-month follow-up for surveillance. 2. Scattered areas of ground-glass opacification throughout the right lung. F indings are most likely inflammatory. 3. Marked splenomegaly. 4. Bilateral nonobstructing nephrolithiasis. Small right renal cysts. Bilate ral renal atrophy. 5. Status post cholecystectomy and hysterectomy. 6. Severe atherosclerotic visceral and aortoiliac calcific disease. 7. Fat containing left anterior wall ventral hernia. 8. Multiple osteolytic lesions in the axial and appendicular skeleton. Consid er multiple myeloma. 9. Pathologic transcervical fracture of the left hip. 10. Diffuse inflammatory changes in the subcutaneous fat, abdomen and pelvis. 11. Other nonacute findings detailed above. Reading Location: [place] [id number]
--- NOTE | 2024-05-06 16:05 | CASEMGMT ---
Social Work- Pt has directives on chart naming , Carlos, as primary agent and son, Kiet, as secondary agent. MIKKI Cedeño
--- NOTE | 2024-05-06 17:07 | ONC.CONSULT ---
Assessment & Plan Assessment/Plan (1) Closed fracture of left hip: Status: Acute Code(s): S72.002A - Fracture of unspecified part of neck of left femur, initial encounter for closed fracture Qualifiers: Encounter type: initial encounter Qualified Code(s): S72.002A - Fracture of unspecified part of neck of left femur, initial encounter for closed fracture Plan: As per orthopedic open reduction is contemplated. Tissue biopsy is expected at the time of surgery will confirm whether the fracture is malignant or not. (2) Lytic bone lesion of left femur: Status: Acute Code(s): M89.8X5 - Other specified disorders of bone, thigh Plan: In addition to other lytic bone lesions are suspicious for multiple myeloma, less likely metastatic solid tumor and further less likely metabolic bone disease. Ordered serum protein electrophoresis, immune fixation and serum free light chain studies. Will follow-up patient after discharge and orthopedic management. (3) Pancytopenia: Status: Chronic Code(s): D61.818 - Other pancytopenia HPI Consult Data Date of Service:: 05/06/24 PCP / Referring Provider: Dr. Velia Archuleta MD Attending: Dr. Jag Taylor MD Chief Complaint Chief Complaint: Fractured left hip History of Present Illness History of Present Illness: 68-year-old female past medical history notable for status post liver transplant for [place] on chronic immunosuppressive therapy and end-stage renal failure on hemodialysis, diabetes complicated with diabetic foot, peripheral vascular disease, polyneuropathy, chronic pancytopenia, portal hypertension with splenomegaly, obstructive sleep apnea. Patient presented May 06, 2024 with a pathologic fracture of the left hip, no trauma but was weightbearing going down the stairs. His CT scan of the left hip confirms a pathologic fracture of the proximal left femur and multiple osteolytic lesions. Similar lesions are seen on the patient's chest abdomen and pelvis CT scan. Advanced Directives Power of Director [employer]: Yes Living Will: Yes [facility] Medical History Hypokalemia Ankle sprain Contusion of right shoulder Contusion of right knee Cervical strain, acute History of subdural hematoma (post traumatic) Closed head injury Generalized weakness Ambulatory dysfunction Diabetes Dialysis patient Sleep apnea Easy bruising Restless legs Difficulty swallowing Dietary restriction History of ulceration Shortness of breath on exertion CPAP (continuous positive airway pressure) dependence Influenza A Sepsis Acute dyspnea Pneumonia Anxiety Depression Hypothyroidism Irregular heart beat Hypertension DVT (deep venous thrombosis) Multiple falls Uses wheelchair History of renal dialysis Osteoporosis Cirrhosis Non-smoker ESRD (end stage renal disease) Pancytopenia Chronic renal failure, stage 5 Infection involving suture with abscess Wears glasses Wears dentures Cancer Insulin dependent diabetes mellitus Anemia Hx of Krueger's palsy Back pain Gastric reflux COPD (chronic obstructive pulmonary disease) History of edema History of echocardiogram (~01/22/20) History of stress test (~12/07/19) Cardiology follow-up encounter [facility] History of uterine cancer Hypertension Anemia in chronic kidney disease Home Medications ?Medication ?Instructions ?Recorded ?Last Taken ?Type ascorbic acid (vitamin C) 500 mg 1,000 mg PO DAILY supplement 02/20/15 05/05/24 History chewable tablet cholecalciferol (vitamin D3) 25 1,000 unit PO BID supplement 02/20/15 05/05/24 History mcg (1,000 unit) tablet vitamin B complex 1 tablet PO DAILY SUPPLEMENT 09/10/19 05/05/24 History ropinirole 1 mg tablet 1 mg PO DAILY restless legs 05/23/20 05/05/24 History sevelamer carbonate 800 mg tablet 2,400 mg PO TIDCM kidney disease 06/10/20 05/05/24 History (Renvela) nitroglycerin 0.4 mg sublingual 0.4 mg sublingual Q5M PRN 04/29/21 Unknown Rx tablet Cardiac/Chest Pain #30 tabs biotin 1 mg capsule 1 mg PO BID supplement 08/11/21 05/05/24 History albuterol sulfate 90 mcg/actuation 2 puff IH Q4H PRN PRN Sob &/Or 10/25/21 Unknown Rx aerosol inhaler Wheezing 30 days #8.6 grams apremilast 30 mg tablet (Otezla) 30 mg PO DAILY 09/08/22 05/05/24 History levothyroxine 88 mcg tablet 88 mcg PO DAILY 12/31/22 05/05/24 History trazodone 100 mg tablet 100 mg PO QHS 12/31/22 05/05/24 History aspirin 81 mg tablet,delayed 81 mg PO DAILY 01/28/23 05/05/24 History release (Adult Aspirin Regimen) bisacodyl 10 mg rectal suppository 10 mg [place] DAILY PRN constipation 02/12/23 07/03/23 Rx (Dulcolax (bisacodyl)) #30 ea midodrine 10 mg tablet 10 mg PO MOWEFR PRN hypotension 04/15/23 05/04/24 History carvedilol 12.5 mg tablet 6.25 mg PO BID 07/01/23 05/05/24 History nystatin 100,000 unit/gram topical 1 applic topical BID PRN PRN SKIN 07/01/23 Unknown History powder ([facility]) pantoprazole 40 mg tablet,delayed 40 mg PO BID 07/01/23 05/05/24 History release vancomycin 2 gram intravenous 1 g IV QMWF 38 days 11/25/23 Unknown Rx solution atorvastatin 40 mg tablet 40 mg PO QHS #30 tabs 01/14/24 05/05/24 Rx dicyclomine 10 mg capsule 10 mg PO DAILY PRN abdominal 01/14/24 Unknown History discomfort famotidine 20 mg tablet 20 mg PO QDAY 01/14/24 05/05/24 History insulin lispro 100 unit/mL 10 unit subcut TIDCM 01/14/24 Unknown History subcutaneous pen (Humalog KwikPen (U-100) Insulin) doxycycline monohydrate 100 mg 100 mg PO BID 05/06/24 05/06/24 History capsule gabapentin 100 mg capsule 200 mg PO QHS 05/06/24 05/05/24 History ropinirole 2 mg tablet 2 mg PO DAILY 05/06/24 05/05/24 History sertraline 100 mg tablet 100 mg PO DAILY 05/06/24 05/05/24 History suvorexant 10 mg tablet (Belsomra) 10 mg PO QHS 05/06/24 05/05/24 History tacrolimus 0.5 mg capsule, 0.5 mg PO Q12H 05/06/24 05/05/24 History immediate-release torsemide 20 mg tablet 60 mg PO .QAM 05/06/24 05/05/24 History vitamin B complex-vitamin C-folic 1 tab PO DAILY 05/06/24 05/05/24 History acid 0.8 mg tablet (Danae-Chet) Allergy/AdvReac Type Severity Reaction Status Date / Time amlodipine (From [facility]) Allergy Severe Hives Verified 05/01/24 02:28 ampicillin sodium (From Allergy Severe Hives Verified 05/01/24 02:28 Unasyn) buspirone HCl (From BuSpar) Allergy Severe Hives Verified 05/01/24 02:28 cefadroxil (From Duricef) Allergy Severe Hives Verified 05/01/24 02:28 lisinopril Allergy Severe Swelling Verified 05/01/24 02:28 naproxen Allergy Severe Hives Verified 05/01/24 02:28 niacin (From Niaspan Allergy Severe Hives Verified 05/01/24 02:28 Extended-Release) sulbactam sodium (From Allergy Severe Hives Verified 05/01/24 02:28 Unasyn) Sulfa (Sulfonamide Allergy Severe Hives Verified 05/01/24 02:28 Antibiotics) tramadol Allergy Mild Nausea Verified 05/01/24 02:28 cephalexin (From Keflex) Allergy Vomiting Verified 05/01/24 02:28 omeprazole AdvReac Severe Other Verified 05/01/24 02:28 losartan AdvReac Swelling Verified 05/01/24 02:28 Family History Mother Diabetes Anemia Father Hypertension LUNG/RESPIRATORY DISEASE Surgical History History of esophagogastroduodenoscopy (EGD) History of coronary artery stent placement History of cardiac catheterization History of appendectomy S/P arteriovenous (AV) fistula creation (~06/16/20) History of cholecystectomy History of left salpingo-oophorectomy History of radical hysterectomy History of left knee surgery History of ventral hernia repair History of liver transplant Social History housing: apartment current occupational status: disabled Smoking Status: Never smoker substance use type: does not use ROS Constitutional Constitutional: Reports fever(s); Denies weight loss ENT HEENT: Denies dysphagia Cardiovascular Cardiovascular: Reports edema; Denies dyspnea Respiratory/Chest Respiratory/Chest: Denies cough Gastrointestinal Gastrointestinal: Denies change in bowel habits, hematochezia or melena Genitourinary Genitourinary: Reports change in urinary stream and other Details: anuric on dialysis Musculoskeletal Musculoskeletal: Reports extremity pain; Denies back pain Integumentary Integumentary: Denies new lesions Neurologic Neurologic: Denies focal weakness Hematologic/Lymphatic Hematologic/Lymphatic: Reports easy bruising; Denies lymphadenopathy Physical Exam Narrative Patient is bedbound due to hip fracture Const alert and oriented x3 Nutritional Appearance: obese HEENT normocephalic Eyes no scleral icterus Neck no JVD General: Negative for lymphadenopathy Resp clear to auscultation bilaterally Cardio regular rate and regular rhythm GI soft to palpation and non-tender Extremity General Extremity: edema bilateral lower extremity Skin General Skin Exam: ecchymosis Neuro CN's II-XII intact bilaterally and no focal motor deficits Psych mental status grossly normal Vital Signs Temperature 98.7 F 05/06/24 13:11 Temperature Source Oral 05/06/24 13:11 Pulse Rate 82 05/06/24 13:11 Respiratory Rate 18 05/06/24 13:11 Respiratory Effort Non-Labored, Short of Breath 05/06/24 13:11 Respiratory Depth Normal 05/06/24 13:11 Respiratory Pattern Normal 05/06/24 13:11 Blood Pressure 142/54 H 05/06/24 13:11 Blood Pressure Mean 83 05/06/24 13:11 Blood Pressure Source Monitor 05/06/24 13:11 Blood Pressure Position Semi-Fowlers 05/06/24 13:11 Blood Pressure Location Right Arm 05/06/24 13:11 Pulse Ox 93 05/06/24 13:11 Oxygen Delivery Method Room Air 05/06/24 13:11 Laboratory Results - last 24 hr 05/06/24 10:35: WBC 3.7 L, RBC 2.89 L, Hgb 8.9 L, Hct 28.8 L, MCV 99.7 H, MCH 30.8, MCHC 30.9 L, RDW Std Deviation 63.3 H, RDW Coeff of Tami 17.9 H, Plt Count 89 L, MPV 11.2, Immature Gran % (Auto) 1.400 H, Neut % (Auto) 74.8 H, Lymph % (Auto) 13.4 L, [place] % (Auto) 7.4, Eos % (Auto) 2.5, Baso % (Auto) 0.5, Absolute Neuts (auto) 2.7, Absolute Lymphs (auto) 0.49 L, Nucleated RBC % 0.5, PT 13.7, INR 1.0, APTT 26.6, Sodium 136, Potassium 4.4, Chloride 95 L, Carbon Dioxide 28.9, Anion Gap 13, BUN 24 H, Creatinine 4.88 H, Estim Creat Clear Calc 13.23 L, Est GFR (MDRD) Non-Af 9 L, BUN/Creatinine Ratio 4.9 L, Glucose 159 H, Calcium 9.6, Total Bilirubin 0.50, AST 19, ALT 17, Alkaline Phosphatase 101, Total Protein 6.1, Albumin 3.4, Globulin 2.7, Albumin/Globulin Ratio 1.2, Blood Type AB NEGATIVE, Antibody Screen NEGATIVE 05/06/24 13:31: POC Glucose 138 H Diagnostic Data Femur X-Ray 05/06/24 08:57 IMPRESSION: Acute left basicervical fracture of the proximal left femur with cephalic migration of the distal fracture fragment. Soft tissue swelling. Reading Location: [id number] Pelvis X-Ray 05/06/24 08:57 IMPRESSION: Acute basicervical fracture of the proximal left femur. Reading Location: [id number] Lower Extremity CT 05/06/24 11:21 IMPRESSION: 1. A pathologic transcervical fracture of the proximal left femur with varus deformity. 2. Multiple osteolytic lesions are noted involving the femoral head and neck as well as the anterior and posterior aspect of the acetabulum. Reading Location: [facility] Chest/Abdomen/Pelvis CT 05/06/24 15:30 IMPRESSION: 1. Noncalcified left lower lobe micronodule. A subpleural nodule in the right lower lobe. Consider three-month follow-up for surveillance. 2. Scattered areas of ground-glass opacification throughout the right lung. Findings are most likely inflammatory. 3. Marked splenomegaly. 4. Bilateral nonobstructing nephrolithiasis. Small right renal cysts. Bilateral renal atrophy. 5. Status post cholecystectomy and hysterectomy. 6. Severe atherosclerotic visceral and aortoiliac calcific disease. 7. Fat containing left anterior wall ventral hernia. 8. Multiple osteolytic lesions in the axial and appendicular skeleton. Consider multiple myeloma. 9. Pathologic transcervical fracture of the left hip. 10. Diffuse inflammatory changes in the subcutaneous fat, abdomen and pelvis. 11. Other nonacute findings detailed above. Reading Location: [place] [id number]
[2024-05-06] MEDS: oxyCODONE 5 MG Tablet PO (17:30)
[2024-05-06] MEDS: Acetaminophen 500 MG Tablet 1000 MG PO ×2 (17:31→22:28)
[2024-05-06 17:51] LABS: Bedside Glucose 147 mg/dL (74-106)
[2024-05-06] MEDS: Gabapentin 100 MG Capsule 200 MG PO (22:28)
[2024-05-06] MEDS: Tacrolimus 0.5 MG Capsule PO (22:28)
[2024-05-06] MEDS: Pantoprazole Sodium 40 MG Tablet PO (22:28)
[2024-05-06] MEDS: Atorvastatin Calcium 40 MG Tablet PO (22:29)
[2024-05-06] MEDS: Cholecalciferol (VIT D3) 25 MCG TABLET (1,000 UNITS) PO (22:29)
[2024-05-06] MEDS: Carvedilol 6.25 MG Tablet PO (22:29)
[2024-05-06] MEDS: traZODone 100 MG Tablet PO (22:29)
[2024-05-06] MEDS: Pramipexole Di-HCl 0.5 MG Tablet PO (22:29)
[2024-05-06] MEDS: Insulin Lispro 100 UNIT/ML INSULN.PEN SC (22:35)
[2024-05-06 22:56] LABS: Bedside Glucose 213 mg/dL (74-106)
[2024-05-07] VITALS (27 sets, daily range): BP systolic 106–259; BP diastolic 42–132; PULSE 68–98; RESP 14–20; TEMP 36.3–37.4; O2SAT 93–100; BMI 37.0; BMI 36.1
--- NOTE | 2024-05-07 | FEM_PTH ---
PATIENT: CHRISTINA KUO LOC: MS3 U#:[id number] AGE/SX: 68/F ROOM: [facility] RE05/06/[address]: Dr. Owen Armenta MD : 1955 BED: 1 DIS: 05/13/2024 SPEC #: [id number] RECD: 05/08/24 09:10 STATUS: CANELO LAURA #: [id number] JAREK: 05/07/24 00:[address]: Owen Crump DEPT: SURGICAL PATHOLOGY RECD BY: Jadon Cannon ENTERED: 05/08/24 09:10 SP TYPE: FEM HEAD OTHR DR: MD Dr. Jag Garay MD Dr. Jayaprakas Dasari, MD Dr. Mansour Isckarus, MD Tissues: Femoral region, NOS Procedures: Decalcification bone/plaque Surgery Specimen Level V HEADER OPERATION: Hemiarthroplasty, hip, cemented PRE-OP DIAGNOSIS: Pathologic fracture of femoral neck TISSUE SUBMITTED: Left femoral head, proximal femur lesion MICROSCOPIC DIAGNOSIS Left femoral head and proximal femur, lesion, resection: * Reactive and degenerative changes with amyloid deposition ([place] Red stain). COMMENT Selected slides/images were reviewed in intradepartmental consultation by Dr Vera Barajas ([facility] bone & soft tissue pathology division). MICROSCOPIC DESCRIPTION Slides are reviewed. Matched control reacted appropriately. GROSS DESCRIPTION Received in formalin labeled Christina Kuo and designated, left femoral head proximal femur lesion, is a femoral head with attached femoral neck and separately received bony fragments. The femoral neck measures 2.7 cm in diameter and 1.1 cm in length. The margin is red-brown, hemorrhagic and trabecular. The femoral head measures 4.3 cm in diameter and 3.2 cm in length. The articular surface shows focal areas with a slight granular texture involving approximately 10% of the surface and is otherwise unremarkable. Sectioning through the femoral head shows red trabecular and hemorrhagic bone at the base of the femoral head and along the articular surface. There is also a surgical defect near the central aspect of the femoral head. Adjacent to this defect there is a cystic area within the bone of the femoral head and measures 2.2 cm in greatest dimension. The bone adjacent to the cyst is red-brown hemorrhagic and softened. The cyst contains mid amount of red-brown clotted material. The articular cartilage ranges from 0.1 cm to 0.2 cm thick. The separately received bony fragments are to diffusely red-brown and hemorrhagic. The largest of these fragments has a smooth cut surface. [place]ler sections are submitted after decalcification as follows: Cassette Summary:1-shaved flattened surface of separate bony fragment2-multiple sections of separate bony fragments3-shave of femoral [id number] section of femoral head showing cyst and articular surface6-healthcare representative section of femoral headJK. 05/08/2024 CPT:[id number], [id number] ADDENDUM ADDENDUM ADDENDUM ADDENDUM ADDENDUM ADDENDUM ADDENDUM ADDENDUM ADDENDUM ADDENDUM 06/03/2024 09:24 ADDENDUM 06/03/2024 09:24 ADDENDUM 06/03/2024 09:24 ADDENDUM 06/03/2024 09:24 ADDENDUM 06/03/2024 09:24 This addendum is added to incorporate an outside pathology report. The case was examined at [facility] by Dr. Varner (#[id number]) and the following diagnosis was rendered. Bone, specimen for amyloid typing ([id number]; 05/07/2024): Involved by amyloidosis, [id number] ([id number]). Please see complete above mentioned report in EMR
[2024-05-07 05:10] LABS: Absolute Lymphocyte Count 0.42 X10^3/uL (0.83-4.51); Basophil# 0.01 X10^3/uL; Basophil% 0.3 % (0-1); Eosinophil# 0.13 X10^3/uL; Eosinophils% 3.4 % (0-5); Hematocrit 29.5 % (37-47); Hemoglobin 8.9 g/dL (12.0-15.0); Lymphocyte # 0.42 X10^3/ul (0.83-4.51); Mean Corp Hgb Conc 30.2 g/dL (32-36); Mean Corpuscular Hgb 30.8 pg (27.0-32.0); Mean Corpuscular Volume 102.1 fL (81-99); Mean Platelet Vol. 10.3 fl (6.2-12.0); Monocyte# 0.27 X10^3/uL; Monocyte% 7.1 % (0-10); NRBC Flagged by Analyzer 0 % (0-5); Neutrophil # 2.95 X10^3/uL (2.7-7.7); Neutrophil % 77.4 % (47-70); POSITIVE COUNT YES; POSITIVE DIFFERENTIAL YES; POSITIVE MORPHOLOGY YES; Platelet Count 83 K/mm3 (150-450); RBC Distribution Width CV 18.2 % (11.6-14.6); RBC Distribution Width SD 65.1 fl (35.1-43.9); Red Blood Count 2.89 M/mm3 (4.2-5.4); White Blood Count 3.8 K/mm3 (4.4-11.0)
[2024-05-07 05:29] LABS: Differential Indicated SCAN CRITERIA MET
[2024-05-07 06:28] LABS: AST(SGOT) 19 U/L (<=31); Alanine Aminotransfer ALT/SGPT 17 U/L (<=34); Albumin, Serum 3.1 g/dL (3.4-4.8); Alkaline Phosphatase 94 U/L (35-104); Anion Gap 13 (5-15); BUN 32 mg/dL (4-19); BUN/Creat Ratio 5.4 RATIO (10-20); Bilirubin, Direct 0.23 mg/dL (0.00-0.30); Calcium,Total 9.6 mg/dL (7.6-11.0); Carbon Dioxide 27.3 mmol/L (21.0-32.0); Chloride 94 mmol/L (98-108); Creatinine, Serum 5.92 mg/dL (0.70-1.20); EST Glomerular Filtration Rate 7 (>60); Estimated Creatinine Clearance 10.82 ml/min (50-250); Globulin 2.7 g/dL (2.2-4.2); Glucose 101 mg/dL (70-99); Magnesium 2.4 mg/dL (1.5-2.2); Potassium 5.4 mmol/L (3.3-5.1); Protein, Total 5.7 g/dL (5.9-8.4); Sodium Level 134 mmol/L (133-145); Total Bilirubin 0.44 mg/dL (0.00-1.30)
[2024-05-07 07:07] LABS: Differential Comment SCANNED
[2024-05-07 07:08] LABS: Anisocytosis 1+; Platelet Estimate SLT DEC (ADEQ)
[2024-05-07] MEDS: Albuterol 2.5 MG/3 ML VIAL.NEB. INHALATION (07:24)
[2024-05-07] MEDS: 0.9% Saline Lock 10 ML Syringe IV (07:27)
[2024-05-07] MEDS: HYDROmorphone 1 MG/ML Syringe IV ×2 (07:27→19:08)
[2024-05-07 07:46] LABS: Bedside Glucose 111 mg/dL (74-106)
[2024-05-07] MEDS: PureFlow B 2K Dialysis Soln 1 BAG 6 BAG PF (08:09)
[2024-05-07] MEDS: 0.9% Normal Saline 1,000 ML IV.SOLN. 1000 ML OPERA.SITE (08:09)
[2024-05-07 09:11] LABS: Hemoglobin A1c 5.5 % (<=5.6)
--- NOTE | 2024-05-07 09:23 | PN.HOSP_ITS ---
Reason for Visit Reason for Visit: Diagnoses Other pancytopenia (05/06/24) Pathological fracture, left femur, initial encounter for fracture (05/06/24) Other specified disorders of bone, thigh (05/06/24) Fracture of unspecified part of neck of left femur, initial encounter for closed fracture (05/06/24) Subjective Subjective Patient is a 68-year-old lady presenting with sudden onset of left hip pain imaging studies obtained on admission did show Acute basicervical fracture of the proximal left femur.. Patient is scheduled to undergo ORIF today. Seen this a.m. having dialysis Objective Data Objective Data Vital Signs: Vital Signs Temp Pulse Resp BP Pulse Ox O2 Del Method O2 Flow Rate 98.3 F 72 16 129/42 H 95 Nasal Cannula 3.5 05/07/24 07:43 05/07/24 09:02 05/07/24 09:02 05/07/24 09:02 05/07/24 09:00 05/07/24 09:02 05/07/24 09:02 Oxygen Flow Rate (L/min) 3.5 Oxygen Delivery Method Nasal Cannula Weight: 101 kg Body Mass Index (BMI) 37.0 Intake & Output: Intake and Output for Last 24 Hours 05/05/24 05/06/24 05/07/24 23:59 23:59 23:59 Intake Total 300 / 300 500 / 500 Output Total 0 / 0 Balance 300 / 300 500 / 500 Lab / Micro Data 05/07/24 04:57 05/07/24 04:57 Labs: Laboratory Results - last 24 hr 05/06/24 10:35: WBC 3.7 L, RBC 2.89 L, Hgb 8.9 L, Hct 28.8 L, MCV 99.7 H, MCH 30.8, MCHC 30.9 L, RDW Std Deviation 63.3 H, RDW Coeff of [place]ami 17.9 H, Plt Count 89 L, MPV 11.2, Immature Gran % (Auto) 1.400 H, Neut % (Auto) 74.8 H, Lymph % (Auto) 13.4 L, [place] % (Auto) 7.4, Eos % (Auto) 2.5, Baso % (Auto) 0.5, Absolute Neuts (auto) 2.7, Absolute Lymphs (auto) 0.49 L, Nucleated RBC % 0.5, PT 13.7, INR 1.0, APTT 26.6, Sodium 136, Potassium 4.4, Chloride 95 L, Carbon Dioxide 28.9, Anion Gap 13, BUN 24 H, Creatinine 4.88 H, Estim Creat Clear Calc 13.23 L, Est GFR (MDRD) Non-Af 9 L, BUN/Creatinine Ratio 4.9 L, Glucose 159 H, Calcium 9.6, Total Bilirubin 0.50, AST 19, ALT 17, Alkaline Phosphatase 101, Total Protein 6.1, Albumin 3.4, Globulin 2.7, Albumin/Globulin Ratio 1.2, Blood Type AB NEGATIVE, Antibody Screen NEGATIVE 05/06/24 13:31: POC Glucose 138 H 05/06/24 17:29: POC Glucose 147 H 05/06/24 22:35: POC Glucose 213 H 05/07/24 04:57: WBC 3.8 L, RBC 2.89 L, Hgb 8.9 L, Hct 29.5 L, MCV 102.1 H, MCH 30.8, MCHC 30.2 L, RDW Std Deviation 65.1 H, RDW Coeff of [place] 18.2 H, Plt Count 83 L, MPV 10.3, Immature Gran % (Auto) 0.800, Neut % (Auto) 77.4 H, Lymph % (Auto) 11.0 L, [place] % (Auto) 7.1, Eos % (Auto) 3.4, Baso % (Auto) 0.3, Absolute Neuts (auto) 3.0, Absolute Lymphs (auto) 0.42 L, Nucleated RBC % 0, Differential Comment SCANNED, Platelet Estimate SLT DEC, Anisocytosis 1+, Sodium 134, P otassium 5.4 H, Chloride 94 L, Carbon Dioxide 27.3, Anion Gap 13, BUN 32 H, C reatinine 5.92 H, Estim Creat Clear Calc 10.82 L, Est GFR (MDRD) Non-Af 7 L, B UN/Creatinine Ratio 5.4 L, Glucose 101 H, Hemoglobin A1c 5.5 L, Calcium 9.6, P hosphorus 6.0 H, Magnesium 2.4 H, Total Bilirubin 0.44, Direct Bilirubin 0.23, AST 19, ALT 17, Alkaline Phosphatase 94, Total Protein 5.7 L, Albumin 3.1 L, Globulin 2.7, TSH 11.900 H 05/07/24 06:34: POC Glucose 111 H Radiography Diagnostic Testing: Radiology Impression Femur X-Ray 05/06/24 08:57 IMPRESSION: Acute left basicervical fracture of the proximal left femur with cephalic migration of the distal fracture fragment. Soft tissue swelling. Reading Location: [id number] Pelvis X-Ray 05/06/24 08:57 IMPRESSION: Acute basicervical fracture of the proximal left femur. Reading Location: [id number] Lower Extremity CT 05/06/24 11:21 IMPRESSION: 1. A pathologic transcervical fracture of the proximal left femur with varus deformity. 2. Multiple osteolytic lesions are noted involving the femoral head and neck as well as the anterior and posterior aspect of the acetabulum. Reading Location: [place] [address] Chest/Abdomen/Pelvis CT 05/06/24 15:30 IMPRESSION: 1. Noncalcified left lower lobe micronodule. A subpleural nodule in the right lower lobe. Consider three-month follow-up for surveillance. 2. Scattered areas of ground-glass opacification throughout the right lung. Findings are most likely inflammatory. 3. Marked splenomegaly. 4. Bilateral nonobstructing nephrolithiasis. Small right renal cysts. Bilateral renal atrophy. 5. Status post cholecystectomy and hysterectomy. 6. Severe atherosclerotic visceral and aortoiliac calcific disease. 7. Fat containing left anterior wall ventral hernia. 8. Multiple osteolytic lesions in the axial and appendicular skeleton. Consider multiple myeloma. 9. Pathologic transcervical fracture of the left hip. 10. Diffuse inflammatory changes in the subcutaneous fat, abdomen and pelvis. 11. Other nonacute findings detailed above. Reading Location: [place] [address] Physical Exam Narrative GENERAL: cooperative HEENT: Atraumatic; normocephalic EYES; Anicteric, Normal Conjunctiva NECK; supple, normal thyroid, RESPIRATORY: Diminished to auscultation CARDIOVASCULAR: Regular S1 S2, GI: soft, normoactive bowel sounds, : No Renal angle tenderness; EXTREMITIES: No edema, no clubbing, MUSCULOSKELETAL: no muscle wasting NEURO: Awake; no lateralizing signs. SKIN: No Rash PSYCH; Flat affect Assessment & Plan Assessment/Plan (1) Closed fracture of left hip: QUALIFIERS: Encounter type: initial encounter Qualified Code(s): S72.002A - Fracture of unspecified part of neck of left femur, initial encounter for closed fracture PLAN: Plan Patient is a 68-year-old lady presenting with sudden onset of left hip pain imaging studies obtained on admission did show Acute basicervical fracture of the proximal left femur. 1. Acute left hip fracture ? Secondary to pathological fracture. Imaging studies obtained on admission did show Acute left basicervical fracture of the proximal left femur with cephalic migration of the distal fracture fragment. Soft tissue swelling. Subsequent imaging studies with CT demonstrated multiple osteolytic lesions noted involving the femoral head and neck as well as the anterior and posterior aspect of the acetabulum. Patient has been admitted to regular nursing floor initial management including immobilization, pain medications and consultation placed to orthopedic surgery. Patient remains at moderate to high risk for surgical intervention given her significant comorbidities including diabetes mellitus type 2, end-stage renal disease on hemodialysis as well as history of renal transplant on the finding of suspected metastatic disease. Patient has however been optimized for surgical intervention. Risk involved in the procedure to be discussed by orthopedic surgery ? 05/07/2024; patient scheduled to undergo surgical intervention this afternoon 2. 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 Patient is currently on tacrolimus. Per patient recent repeat imaging studies demonstrated recurrence of cirrhotic lesions. Patient is followed by GI as outpatient 3. End-stage renal disease ? Patient is on hemodialysis Wednesdays and Fridays consult placed to Dr. Strickland with nephrology for dialysis orders ? Patient seen currently having dialysis 4. Hyperkalemia ? Secondary to patient end-stage renal disease patient hyperkalemia being treated through dialysis 5. Multiple osteolytic lesions involving the femoral head and neck as well as ACL and appendicular skeleton CT of the abdomen and pelvis obtained did show 1. Noncalcified left lower lobe micronodule. A subpleural nodule in the right lower lobe. Consider three-month follow-up for surveillance. 2. Scattered areas of ground-glass opacification throughout the right lung. Findings are most likely inflammatory. 3. Marked splenomegaly. 4. Bilateral nonobstructing nephrolithiasis. Small right renal cysts. Bilateral renal atrophy. 5. Status post cholecystectomy and hysterectomy. 6. Severe atherosclerotic visceral and aortoiliac calcific disease. 7. Fat containing left anterior wall ventral hernia. 8. Multiple osteolytic lesions in the axial and appendicular skeleton. Consider multiple myeloma. 9. Pathologic transcervical fracture of the left hip. 10. Diffuse inflammatory changes in the subcutaneous fat, abdomen and pelvis. 11. Other nonacute findings detailed above. ?Consult was placed to heme-onc. Also ordered urine light chain as well as protein electrophoresis 4. Diabetes mellitus type 2 ? Patient is on scheduled Premeal insulin, given anticipated surgical intervention in a.m. patient short acting insulin held. Placed on Accu-Cheks before meals and at bedtime with sliding scale coverage 5. History of cervical and uterine cancer ? Status post abdominal hysterectomy 6. Findings of possible metastatic disease with pathological fracture ? Consult has been placed to oncology to guide workup 7. GERD ? Patient is on PPI 8. Diabetic polyneuropathy ? Patient is on gabapentin 9. Class II obesity with BMI of 36 ? Complicating care weight loss advised 10. Hypertension ? Blood pressure controlled, home medications continued with dose adjustment as needed 11. Dyslipidemia ?Patient is on statin therapy, continued at home dose 12. Coronary artery disease ? With previous PCI. Patient is on guideline directed medical therapy including statin therapy beta-blockers and aspirin 14. Pancytopenia ? Secondary to chronic liver disease monitoring indices with daily CBC with differential 15. DVT prophylaxis ? Bilateral SCDs for now Time spent in the patient's overall evaluation,decision-making process, review of diagnostic data, adjustment of management, discussion with other providers, nursing nursing and ancillary staff involved in patient's care documentation, 50 Minutes Charges/Coding Visit Charges Inpatient E&M: 00394 [facility] Hosp L3
[2024-05-07] MEDS: Midodrine HCl 5 MG Tablet 10 MG PO (09:35)
[2024-05-07 11:56] LABS: Bedside Glucose 93 mg/dL (74-106)
--- NOTE | 2024-05-07 13:25 | PN.ORTHO_ITS ---
Subjective Subjective Patient seen and examined. Denies fevers, chills, nausea vomiting, chest pain or shortness of breath. Ready for surgery she states. Objective Data Objective Data Vital Signs: Vital Signs Temp Pulse Resp BP Pulse Ox O2 Del Method O2 Flow Rate 98.5 F 77 18 129/59 H 100 Nasal Cannula 3 05/07/24 12:19 05/07/24 12:19 05/07/24 12:19 05/07/24 12:19 05/07/24 12:19 05/07/24 12:19 05/07/24 12:19 Oxygen Flow Rate (L/min) 3 Oxygen Delivery Method Nasal Cannula Weight: 216 lb 14.958 oz Body Mass Index (BMI) 36.1 Intake & Output: Intake and Output for Last 24 Hours 05/05/24 05/06/24 05/07/24 23:59 23:59 23:59 Intake Total 300 / 300 600 / 600 Output Total 2100 / 2100 Balance 300 / 300 -1500 / -1500 Lab / Micro Data 05/07/24 04:57 05/07/24 04:57 Labs: Laboratory Results - last 24 hr 05/06/24 13:31: POC Glucose 138 H 05/06/24 17:29: POC Glucose 147 H 05/06/24 22:35: POC Glucose 213 H 05/07/24 04:57: WBC 3.8 L, RBC 2.89 L, Hgb 8.9 L, Hct 29.5 L, MCV 102.1 H, MCH 30.8, MCHC 30.2 L, RDW Std Deviation 65.1 H, RDW Coeff of Tami 18.2 H, Plt Count 83 L, MPV 10.3, Immature Gran % (Auto) 0.800, Neut % (Auto) 77.4 H, Lymph % (Auto) 11.0 L, [place] % (Auto) 7.1, Eos % (Auto) 3.4, Baso % (Auto) 0.3, Absolute Neuts (auto) 3.0, Absolute Lymphs (auto) 0.42 L, Nucleated RBC % 0, Differential Comment SCANNED, Platelet Estimate SLT DEC, Anisocytosis 1+, Sodium 134, P otassium 5.4 H, Chloride 94 L, Carbon Dioxide 27.3, Anion Gap 13, BUN 32 H, C reatinine 5.92 H, Estim Creat Clear Calc 10.82 L, Est GFR (MDRD) Non-Af 7 L, B UN/Creatinine Ratio 5.4 L, Glucose 101 H, Hemoglobin A1c 5.5 L, Calcium 9.6, P hosphorus 6.0 H, Magnesium 2.4 H, Total Bilirubin 0.44, Direct Bilirubin 0.23, AST 19, ALT 17, Alkaline Phosphatase 94, Total Protein 5.7 L, Albumin 3.1 L, Globulin 2.7, TSH 11.900 H, Free [place] LC, Quant Cancelled, Free [place] LC, Quant Cancelled, Free [place]/Lambda Ratio Cancelled 05/07/24 06:34: POC Glucose 111 H 05/07/24 11:36: POC Glucose 93 Radiography Diagnostic Testing: Radiology Impression Chest/Abdomen/Pelvis CT 05/06/24 15:30 IMPRESSION: 1. Noncalcified left lower lobe micronodule. A subpleural nodule in the right lower lobe. Consider three-month follow-up for surveillance. 2. Scattered areas of ground-glass opacification throughout the right lung. Findings are most likely inflammatory. 3. Marked splenomegaly. 4. Bilateral nonobstructing nephrolithiasis. Small right renal cysts. Bilateral renal atrophy. 5. Status post cholecystectomy and hysterectomy. 6. Severe atherosclerotic visceral and aortoiliac calcific disease. 7. Fat containing left anterior wall ventral hernia. 8. Multiple osteolytic lesions in the axial and appendicular skeleton. Consider multiple myeloma. 9. Pathologic transcervical fracture of the left hip. 10. Diffuse inflammatory changes in the subcutaneous fat, abdomen and pelvis. 11. Other nonacute findings detailed above. Reading Location: [facility] Physical Exam Narrative GEN - A&Ox3, NAD HEENT - NCAT, EOMI CV - RRR LUNGS - CTAB ABD - S/NT/ND NEURO - CN II-XII intact EXT - Nontender BUE, RLE. Pelvis stable, nontender. No C spine TTP. LLE - Pain with logroll. SILT L3-S1. DF, PF, EHL 5/5. DP 2+, BCR. Calf soft, nontender. No rashes/lesions. Assessment & Plan Assessment/Plan (1) Pathologic fracture of femoral neck: QUALIFIERS: Encounter type: initial encounter Laterality: left Q ualified Code(s): M84.452A - Pathological fracture, left femur, initial encounter for fracture PLAN: Patient seen and examined. CT scan reviewed. Oncology concerning for myeloma. Plan for intraoperative biopsy. All questions answered to the patient satisfaction. Informed consent was confirmed with the patient. Plan to proceed with surgery. Blood consent obtained.
--- NOTE | 2024-05-07 13:27 | CASEMGMT ---
RN CM NOTE: RN CM to room to complete initial RN CM assessment. Pt remains out of room @ surgery. Rolando BSN RN CM
--- NOTE | 2024-05-07 13:37 | PCM.PRE.AN2 ---
ASA Classification* ASA Classification ASA Classification: 4 Assessment & Plan Anesthesia* Anesthesia Assessment Anesthesia Assessment: Discussed sedation and/or anesthesia options, risks, benefits, and alternatives with patient/parents/legal guardian/POA. Questions invited. The patient/parents/legal guardian/POA seems to understand and agrees to proceed with anesthesia plan. Reviewed the physical assessment, medical history, allergy history and patient home medications list prior to surgery/procedure/anesthetic and documented any changes. Performed airway and anesthesia risk assessments. Anesthesia Type Anesthesia Type: General History Source History Obtained from:: Patient and Chart Anesthesia Focused Assessment* Temperature: 98.5 F Pulse Rate: 77 Blood Pressure: 129/59 Respiratory Rate: 18 Pulse Ox: 100 Oxygen Delivery Method: Nasal Cannula Oxygen Flow Rate (L/min): 4 Airway Assessment Mouth opens: >3 cm Mallampati Score: I Teeth Condition: Dentures and Full Neck Range of motion (ROM): Full ROM Focused Labs Anesthesia Preop lab: CBC WBC 3.8 K/mm3 (4.4-11.0) L 05/07/24 04:57 05/07/24 RBC 2.89 M/mm3 (4.2-5.4) L 05/07/24 04:57 05/07/24 Hgb 8.9 g/dL (12.0-15.0) L 05/07/24 04:57 05/07/24 Hct 29.5 % (37-47) L 05/07/24 04:57 05/07/24 Plt Count 83 K/mm3 (150-450) L 05/07/24 04:57 05/07/24 CHEMISTRY Potassium 5.4 mmol/L (3.3-5.1) H 05/07/24 04:57 05/07/24 Sodium 134 mmol/L (133-145) 05/07/24 04:57 05/07/24 Magnesium 2.4 mg/dL (1.5-2.2) H 05/07/24 04:57 05/07/24 Phosphorus 6.0 mg/dL (2.7-4.5) H 05/07/24 04:57 05/07/24 BUN 32 mg/dL (4-19) H 05/07/24 04:57 05/07/24 Creatinine 5.92 mg/dL (0.70-1.20) H 05/07/24 04:57 05/07/24 Glucose 101 mg/dL (70-99) H 05/07/24 04:57 05/07/24 POC Glucose 93 mg/dL (74-106) 05/07/24 11:36 05/07/24 TSH 11.900 uIU/mL (0.300-4.200) H 05/07/24 04:57 05/07/24 COAG PT 13.7 SECONDS (11.7-14.9) 05/06/24 10:35 05/06/24 Pre-Assessment Diagnosis/Proposed Procedure Planned Operative Procedure(s): Left hip hemiarthroplasty Anesthesia History 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 When Was Last Pacemaker Check QUESTION #4 FULL TEXT: You/Your Family Experience fever (hyperthermia) with Anesthesia Last Oral Intake Last Oral intake: Last Oral Intake NPO since 00:00 05/07/24 12:19 Meds taken in AM with sips of water? 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 Has anyone observed you stop breathing during sleep? STOP Results Positive 05/06/24 13:11 QUESTION #5 FULL TEXT : Do you snore loudly (louder than talking or can be heard through closed doors)? 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 Specify any problems Hx of Preganancy in last 3 Months Nurse Filling Out Transfusion RKALIPERLASI 05/06/24 13:11 & Questions: Date: 05/06/24 05/06/24 13:11 Time: 13:24 05/06/24 13:11 Patient unable to answer at Yes 05/06/24 13:11 this time (ie. 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 INHALATION 2.5 mg Q2H PRN PRN Administration SOB &/OR WHEEZING Albuterol Sulfate 2.5 mg 05/06/24 16:39 Albuterol 2.5 Mg/3 Ml Vial.Neb. INHALATION Q4H PRN Sob &/Or Wheezing Ascorbic Acid 1,000 mg 05/07/24 10:00 05/07/24 10:40 Ascorbic Acid 500 Mg Tablet PO Not Given DAILY JERSON Aspirin 81 mg 05/07/24 08:00 05/07/24 07:20 Aspirin E.C. 81 Mg Tablet PO Not Given BREAKFAST JERSON Atorvastatin Calcium 40 mg 05/06/24 22:00 05/06/24 22:29 Atorvastatin Calcium 40 Mg Tablet PO 40 mg QHS JERSON Administration Bisacodyl 10 mg 05/06/24 15:00 Bisacodyl 10 Mg Suppository RC DAILY PRN constipation Carvedilol 6.25 mg 05/06/24 22:00 05/07/24 10:40 Carvedilol 6.25 Mg Tablet PO Not Given BID JERSON Cholecalciferol 25 mcg 05/06/24 22:00 05/07/24 10:41 Cholecalciferol (Vit D3) 25 Mcg Tablet (1,000 Units) PO Not Given BID JERSON Dicyclomine HCl 10 mg 05/06/24 15:00 Dicyclomine 10 Mg Capsule PO DAILY PRN abdominal discomfort Gabapentin 200 mg 05/06/24 22:00 05/06/24 22:28 Gabapentin 100 Mg Capsule PO 200 mg QHS JERSON Administration Glucagon 1 mg 05/06/24 14:07 Glucagon 1 Mg/Ml Syringe IM X1 PRN HYPOGLYCEMIA Protocol Guaifenesin 20 ml 05/06/24 14:07 Guaifenesin 10 Ml Udc (200mg/10ml) PO Q4H PRN PRN COUGH Hemodialysis Solution 6 bag 05/07/24 07:45 05/07/24 08:09 Pureflow B 2k Dialysis Soln 1 Bag PF 05/07/24 19:38 5 bag UD JERSON Administration Protocol Hydromorphone HCl 0.5 - 1 mg 05/06/24 14:07 05/07/24 07:27 Hydromorphone 1 Mg/Ml Syringe IV 1 mg Q3H PRN PRN Administration Pain Score 6-10 Dextrose 250 mls @ 0 mls/hr 05/06/24 14:07 Dextrose 10%-Water IV .Q0M PRN HYPOGLYCEMIA Protocol As Directed Insulin Human Lispro 0 unit 05/06/24 16:00 05/07/24 13:20 Insulin Lispro 100 Unit/Ml Insuln.Pen SC Not Given ACHS [facility] Protocol Levothyroxine Sodium 88 mcg 05/07/24 06:00 05/07/24 06:55 Levothyroxine 88 Mcg Tablet PO Not Given DAILY@0600 JERSON Melatonin 3 mg 05/06/24 14:07 Melatonin 3 Mg Tablet PO QHS PRN PRN INSOMNIA Midodrine 10 mg 05/07/24 07:53 05/07/24 09:35 Midodrine Hcl 5 Mg Tablet PO 10 mg MOWEFR PRN Administration hypotension Multivit/Ca Carb/B Cmplx/FA/Prenat 1 cap 05/07/24 10:00 05/07/24 10:40 Folic Acid/Vitamin B Comp W-C 1 Capsule PO Not Given DAILY [facility] Nitroglycerin 0.4 mg 05/06/24 15:00 Nitroglycerin (Inpatient Use) 0.4 Mg Tab.Subl SL Q5M PRN Cardiac/Chest Pain Ondansetron HCl 4 mg 05/06/24 14:07 Ondansetron 4 Mg/2 Ml Vial IV Q8H PRN PRN NAUSEA/VOMITING Oxycodone HCl 5 mg 05/06/24 14:07 05/06/24 17:30 Oxycodone 5 Mg Tablet PO 5 mg Q4H PRN PRN Administration Pain Score 4-10 Pantoprazole Sodium 40 mg 05/06/24 22:00 05/07/24 10:40 Pantoprazole Sodium 40 Mg Tablet PO Not Given BID [facility] Pramipexole Dihydrochloride 0.5 mg 05/06/24 22:00 05/06/24 22:29 Pramipexole Di-Hcl 0.5 Mg Tablet PO 0.5 mg QHS [facility] Administration Pramipexole Dihydrochloride 1 mg 05/07/24 10:00 05/07/24 10:40 Pramipexole Di-Hcl 1 Mg Tablet PO Not Given DAILY [facility] Senna/Docusate Sodium 2 tablet 05/06/24 14:07 Senna/Docusate Sodium 1 Tablet PO BID PRN PRN Constipation Sertraline HCl 100 mg 05/07/24 10:00 05/07/24 10:43 Sertraline 100 Mg Tablet PO Not Given DAILY JERSON Sevelamer Carbonate 2,400 mg 05/06/24 17:00 05/07/24 13:20 Sevelamer Carbonate 800 Mg Tablet PO Not Given TIDCM JERSON Sodium Chloride 10 - 40 ml 05/06/24 13:15 05/07/24 07:27 0.9% Saline Lock 10 Ml Syringe IV 10 ml UD PRN Administration SALINE FLUSH Sodium Chloride 1,000 ml 05/07/24 07:40 05/07/24 08:09 0.9% Normal Saline 1,000 Ml Iv.Soln. OPERA.SITE 05/07/24 19:37 1,000 ml X1 JERSON Administration Sodium Chloride 200 ml 05/07/24 07:37 0.9% Normal Saline 1,000 Ml Iv.Soln. IV 05/07/24 19:37 X1 PRN to maintain SBP >90mmHg during Dialysis Tacrolimus 0.5 mg 05/06/24 22:00 05/07/24 10:40 Tacrolimus 0.5 Mg Capsule PO Not Given BID JERSON Torsemide 60 mg 05/07/24 10:00 05/07/24 07:21 Torsemide 20 Mg Tablet PO Not Given DAILY JERSON Trazodone HCl 100 mg 05/06/24 22:00 05/06/24 22:29 Trazodone 100 Mg Tablet PO 100 mg QHS JERSON Administration PFSH Medical History Hypokalemia Ankle sprain Contusion of right shoulder Contusion of right knee Cervical strain, acute History of subdural hematoma (post traumatic) Closed head injury Generalized weakness Ambulatory dysfunction Diabetes Dialysis patient Sleep apnea Easy bruising Restless legs Difficulty swallowing Dietary restriction History of ulceration Shortness of breath on exertion CPAP (continuous positive airway pressure) dependence Influenza A Sepsis Acute dyspnea Pneumonia Anxiety Depression Hypothyroidism Irregular heart beat Hypertension DVT (deep venous thrombosis) Multiple falls Uses wheelchair History of renal dialysis Osteoporosis Cirrhosis Non-smoker ESRD (end stage renal disease) Pancytopenia Chronic renal failure, stage 5 Infection involving suture with abscess Wears glasses Wears dentures Cancer Insulin dependent diabetes mellitus Anemia Hx of Krueger's palsy Back pain Gastric reflux COPD (chronic obstructive pulmonary disease) History of edema History of echocardiogram (~01/22/20) History of stress test (~12/07/19) Cardiology follow-up encounter [employer] History of uterine cancer Hypertension Anemia in chronic kidney disease Home Medications ?Medication ?Instructions ?Recorded ?Last Taken ?Type ascorbic acid (vitamin C) 500 mg 1,000 mg PO DAILY supplement 02/20/15 05/05/24 History chewable tablet cholecalciferol (vitamin D3) 25 1,000 unit PO BID supplement 02/20/15 05/05/24 History mcg (1,000 unit) tablet vitamin B complex 1 tablet PO DAILY SUPPLEMENT 09/10/19 05/05/24 History ropinirole 1 mg tablet 1 mg PO DAILY restless legs 05/23/20 05/05/24 History sevelamer carbonate 800 mg tablet 2,400 mg PO TIDCM kidney disease 06/10/20 05/05/24 History (Renvela) nitroglycerin 0.4 mg sublingual 0.4 mg sublingual Q5M PRN 04/29/21 Unknown Rx tablet Cardiac/Chest Pain #30 tabs biotin 1 mg capsule 1 mg PO BID supplement 08/11/21 05/05/24 History albuterol sulfate 90 mcg/actuation 2 puff IH Q4H PRN PRN Sob &/Or 10/25/21 Unknown Rx aerosol inhaler Wheezing 30 days #8.6 grams apremilast 30 mg tablet (Otezla) 30 mg PO DAILY 09/08/22 05/05/24 History levothyroxine 88 mcg tablet 88 mcg PO DAILY 12/31/22 05/05/24 History trazodone 100 mg tablet 100 mg PO QHS 12/31/22 05/05/24 History aspirin 81 mg tablet,delayed 81 mg PO DAILY 01/28/23 05/05/24 History release (Adult Aspirin Regimen) bisacodyl 10 mg rectal suppository 10 mg MO DAILY PRN constipation 02/12/23 07/03/23 Rx (Dulcolax (bisacodyl)) #30 ea midodrine 10 mg tablet 10 mg PO MOWEFR PRN hypotension 04/15/23 05/04/24 History carvedilol 12.5 mg tablet 6.25 mg PO BID 07/01/23 05/05/24 History nystatin 100,000 unit/gram topical 1 applic topical BID PRN PRN SKIN 07/01/23 Unknown History powder ([facility]) pantoprazole 40 mg tablet,delayed 40 mg PO BID 07/01/23 05/05/24 History release vancomycin 2 gram intravenous 1 g IV QMWF 38 days 11/25/23 Unknown Rx solution atorvastatin 40 mg tablet 40 mg PO QHS #30 tabs 01/14/24 05/05/24 Rx dicyclomine 10 mg capsule 10 mg PO DAILY PRN abdominal 01/14/24 Unknown History discomfort famotidine 20 mg tablet 20 mg PO QDAY 01/14/24 05/05/24 History insulin lispro 100 unit/mL 10 unit subcut TIDCM 01/14/24 Unknown History subcutaneous pen (Humalog KwikPen (U-100) Insulin) doxycycline monohydrate 100 mg 100 mg PO BID 05/06/24 05/06/24 History capsule gabapentin 100 mg capsule 200 mg PO QHS 05/06/24 05/05/24 History ropinirole 2 mg tablet 2 mg PO DAILY 05/06/24 05/05/24 History sertraline 100 mg tablet 100 mg PO DAILY 05/06/24 05/05/24 History suvorexant 10 mg tablet (Belsomra) 10 mg PO QHS 05/06/24 05/05/24 History tacrolimus 0.5 mg capsule, 0.5 mg PO Q12H 05/06/24 05/05/24 History immediate-release torsemide 20 mg tablet 60 mg PO .QAM 05/06/24 05/05/24 History vitamin B complex-vitamin C-folic 1 tab PO DAILY 05/06/24 05/05/24 History acid 0.8 mg tablet (Danae-Chet) Allergy/AdvReac Type Severity Reaction Status Date / Time amlodipine (From Norvasc) Allergy Severe Hives Verified 05/01/24 02:28 ampicillin sodium (From Allergy Severe Hives Verified 05/01/24 02:28 Unasyn) buspirone HCl (From BuSpar) Allergy Severe Hives Verified 05/01/24 02:28 cefadroxil (From Duricef) Allergy Severe Hives Verified 05/01/24 02:28 lisinopril Allergy Severe Swelling Verified 05/01/24 02:28 naproxen Allergy Severe Hives Verified 05/01/24 02:28 niacin (From Niaspan Allergy Severe Hives Verified 05/01/24 02:28 Extended-Release) sulbactam sodium (From Allergy Severe Hives Verified 05/01/24 02:28 Unasyn) Sulfa (Sulfonamide Allergy Severe Hives Verified 05/01/24 02:28 Antibiotics) tramadol Allergy Mild Nausea Verified 05/01/24 02:28 cephalexin (From Keflex) Allergy Vomiting Verified 05/01/24 02:28 omeprazole AdvReac Severe Other Verified 05/01/24 02:28 losartan AdvReac Swelling Verified 05/01/24 02:28 Family History Mother Diabetes Anemia Father Hypertension LUNG/RESPIRATORY DISEASE Surgical History History of esophagogastroduodenoscopy (EGD) History of coronary artery stent placement History of cardiac catheterization History of appendectomy S/P arteriovenous (AV) fistula creation (~06/16/20) History of cholecystectomy History of left salpingo-oophorectomy History of radical hysterectomy History of left knee surgery History of ventral hernia repair History of liver transplant Social History housing: apartment current occupational status: disabled Smoking Status: Never smoker substance use type: does not use Review of Systems (Anesthesia) ROS Narrative System reviewed and no additional complaints, except as documented.
--- NOTE | 2024-05-07 13:41 | CASEMGMT ---
Social Work- SW attempted to meet with pt to introduce self and role. Pt, pt dtr, and pt spouse were all asleep in the room. SW will follow up at a later time. MIKKI Cedeño
[2024-05-07] MEDS: Cefazolin 2 GM in Syringe IV (14:17)
[2024-05-07] MEDS: Bupiv/Epi 0.25% 30 ML Vial (15:15)
[2024-05-07] MEDS: Vancomycin IV 1,000 MG/20 ML Vial 1000 MG OPERA.SITE (15:21)
--- NOTE | 2024-05-07 15:58 | PCM.POST.ANE ---
Anesthesia: Postop Eval I Current Vital Signs Temperature: 97.9 F Pulse Rate: 89 Blood Pressure: 160/67 Respiratory Rate: 16 Pulse Ox: 99 Assessment Airway patent: Yes Spontaneous unlabored respirations: Yes nausea: No Vomiting: No Anesthesia Complication: No Fluid Hydration Crystalloid volume administer (ml): 700 Total IV fluid infused: 700 Progress Note Anesthesia document: Postop Eval 1 completed: Yes
--- NOTE | 2024-05-07 16:25 | RAD_ITS ---
PROCEDURE: Pelvis and left hip radiographs REASON FOR EXAM: Postop TECHNIQUE: Two views of the pelvis and left hip COMPARISON: 05/06/2024 FINDINGS: See impression RAD/Hip Min 2 Views (Portable) IMPRESSION: Expected postop change from left hip prosthesis placement. Alignment is anatom ic. Negative for fracture. 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 Reading Location: [facility]
--- NOTE | 2024-05-07 16:27 | PCM.OPRPT ---
Operative Report (Standard) Operative Information Date of Procedure: 05/07/24 Pre-Operative Diagnosis: Pathologic left femoral neck fracture Post-Operative Diagnosis: Pathologic left femoral neck fracture Surgery/Procedure Performed: Left hip hemiarthroplasty secretary bookkeeper: Yes Security Assurance Analyst: Carmen Goldsmith Tasks completed by malt specifications control assistant: Opening & closing, Implanting device and Retracting Type of Anesthesia: General RN Documented Start/Stop Times: Operation Date: 05/07/24 14:30 Case Time Into Pre-Op 05/07/24 12:30 Out of Pre-Op 05/07/24 13:45 Anesthesia Start 05/07/24 13:53 Into Room 05/07/24 13:53 Procedure Start 05/07/24 14:32 Procedure End 05/07/24 15:40 Anesthesia End 05/07/24 15:48 Out of Room 05/07/24 15:48 Into Recovery 05/07/24 15:51 Out of Recovery 05/07/24 16:33 Procedure Start Time: 14:32 Procedure Stop Time: 15:40 Select all DRAINS/GRAFTS/IMPLANTS that apply: Implanted device Implanted device details: Gab Accolade C size number four 127 degree high offset hip stem, Unitrax neck adjustment sleeve +4 mm, Unitrax endoprosthesis head component outer diameter 43 mm, size 17 centralizer Estimated Blood Loss: 100 cc Specimen collected: Yes Description of specimen(s) removed: Left proximal femur marrow contents, femoral head Description of surgery: Description of procedure: Prior to the procedure, patient was brought to the preoperative holding area where patient was identified by name, medical record number and date of . I confirmed the side, site, operation to be performed with the patient. Informed consent was confirmed, All questions were answered to patient satisfaction. The operative extremity was marked. She was also seen by anesthesia staff and anesthesia consent obtained.At time of the operative procedure, pt was brought to the operative suite. General anesthesia was induced on the hospital bed and endotracheal tube placed. After adequate anesthesia, patient was transferred to a standard operating table. She was then positioned in the lateral decubitus position with the left side up and held in position by the Featherlight hip positioner system. All bony prominences were well-padded. A axillary roll was placed under the patient's right axilla. Peroneal nerve was free with a blanket on the nonoperative extremity. Leg lengths were reproduced from patient's position when she was supine. The left lower extremity was then prepped and draped in normal, sterile orthopedic fashion. We performed a timeout with all parties in attendance in agreement with the side, site, and operation to be performed. No concerns were voiced and would like to proceed. 2 g Ancef was administered prior to incision. TXA was not administered due to end-stage renal disease. I first marked an incision along the lateral aspect of the hip centered over the greater trochanteric tip. In standard posterior approach, a curvilinear incision was made above the trochanter. An approximately 12 cm incision was made. Skin was sharply incised with a 10 blade scalpel carried deep through subcutaneous layers to the level of the IT band. Gelpi retractors were then placed. A Acuña was used to expose the IT band. Bovie cautery was then used for hemostasis and then to open the IT band. This was opened in line with the incision. The trochanteric bursa was then debrided. This identified the short external rotators after internal rotation of the hip. The fracture site was easily identified at this point. Short external rotators were taken down and tagged for later repair. Hip capsule was also tagged for repair with a stay suture. We then freshened the neck cut with a sagittal saw. Anterior and posterior acetabular retractors were placed to gain access to the femoral head. A corkscrew was used to remove the head. Any remaining debris was debrided from the acetabulum. We then placed the femoral head on the back table for measurement. Femoral head was then sent for specimen analysis due to suspected pathologic fracture. We did use trial heads and selected a final size 43 with good suction fit. Box chisel was then utilized to gain access to the femoral canal. Canal finder was placed. Intramedullary contents were sent for biopsy. Sequential broaches were used in press-fit manner. A final size 4 achieved excellent vertical and rotational stability. We then trialed with a standard and subsequently high offset stem. I offset did achieve excellent stability and reproduction of abductor tension. I then prepared the femur for cementing. We trialed a centralizer to determine appropriate size. Simplex cement was then mixed on the back table. I placed a cement restrictor to an appropriate depth allowing for a 5 mm distal cement mantle. Wire brush was used to remove blood from the femoral canal. I then thoroughly irrigated the femoral canal. Canal was suctioned dry. I then placed dry vaginal packing to pack the femoral canal. After 3 minutes, the cement was pressurized in the femoral canal. Size #4 stem was then placed by hand to an appropriate depth recreating appropriate anteversion of the femoral neck. This was held in place while cement cured. Excess cement was removed. After the cemented hardened, we copiously irrigated the wound with normal saline solution and irrisept solution. I retrialed with a +4 mm head trial which appropriately reproduce her leg lengths and was stable through an arc of motion. Final dislocation was performed. The trunnion was irrigated and dried. Final head was then impacted over the Simms taper neck. Final reduction was performed. A posterior capsular repair was performed with #2 Ethibond suture via bone tunnels. IT band was closed watertight with #1 strata fix suture. Deeper fascial layers were closed with 0 Vicryl suture in interrupted fashion. Subcutaneous layers were reapproximated with 2-0 Vicryl suture and skin reapproximated with skin mari. A silver dressing was applied. Patient tolerated procedure well without complication. She was positioned back in the supine position on her hospital bed and subsequently extubated safely. She was transferred to PACU in stable condition. Blankets were placed between the patient's legs. Post Operative Plan: Specimen sent. Outpatient follow-up with oncology. Weightbearing: Weightbearing as tolerated left lower extremity, posterior hip precautions. Blankets between the legs for the first 24 hours Antibiotics: Ancef 1 g every 8 hours x 3 doses DVT Prophylaxis: Defer to primary service due to end-stage renal disease. Okay to start anticoagulant of choice postoperative day #1. Discussed with primary, likely plan for apixaban 2.5 mg twice daily. I would recommend at least 4 weeks postoperative use. Paz: Removed postoperative day #1 Dressing: Maintain silver dressing x7 days X-Rays: PACU x-rays were reviewed demonstrated well-positioned left hip hemiarthroplasty implant. Follow-up 2-week x-rays in the office. Follow-up: 2 weeks in my office for staple removal Surgical Findings: Left hip, stable following final reduction. Suspicious, abnormal marrow contents. Complications Complications: No Admit VTE Documentation VTE Present on Admission: No VTE Mechan Device Prophylaxis: SCD's and Knee High PB Hose VTE Pharm Prophylaxis ordered?: Yes
[2024-05-07 17:44] LABS: Bedside Glucose 146 mg/dL (74-106)
[2024-05-07] MEDS: oxyCODONE 5 MG Tablet PO (18:11)
[2024-05-07] MEDS: Calcium Carbonate 500 MG Tablet PO (18:13)
--- NOTE | 2024-05-07 20:07 | POSTOPAN2_ITS ---
Anesthesia Postop Eval I Sum Postop Eval Completion status Anesthesia document: Postop Eval 1 completed: Yes Anesthesia Postop Eval I Summary Anesthesia Postop Eval I Summary: Anesthesia Postop Eval I: Assessment Summary Airway patent Yes 05/07/24 15:59 [email or web address] Spontaneous unlabored Yes 05/07/24 15:59 HOSPITAL [email or web address] respirations Mental status nausea No 05/07/24 15:59 HOSPITAL [email or web address] Vomiting No 05/07/24 15:59 HOSPITAL [email or web address] Anesthesia Postop Eval I: Fluid Summary Crystalloid volume administer 700 05/07/24 15:59 HOSPITAL [email or web address] (ml) Colloids volume administered ( ml) Blood Product volume administered (ml) Total IV fluid infused 700 05/07/24 15:59 HOSPITAL [email or web address] Anesthesia Postop Eval I: Summary Notes Anesthesia Complication No 05/07/24 15:59 HOSPITAL [email or web address] Anesthesia Complication Comment: Post-operative progress note Anesthesia: Postop Eval II Evaluation Mental status: Awake and Calm Pain Level: 2 nausea: No Vomiting: No Complications Anesthesia Complication: No
--- NOTE | 2024-05-07 20:07 | PCM.POSTANE2 ---
Anesthesia Postop Eval I Sum Postop Eval Completion status Anesthesia document: Postop Eval 1 completed: Yes Anesthesia Postop Eval I Summary Anesthesia Postop Eval I Summary: Anesthesia Postop Eval I: Assessment Summary Airway patent Yes 05/07/24 15:59 STEREO MAP PLOTTER [email or web address] Spontaneous unlabored Yes 05/07/24 15:59 STEREO MAP PLOTTER [email or web address] respirations Mental status nausea No 05/07/24 15:59 STEREO MAP PLOTTER [email or web address] Vomiting No 05/07/24 15:59 STEREO MAP PLOTTER [email or web address] Anesthesia Postop Eval I: Fluid Summary Crystalloid volume administer 700 05/07/24 15:59 STEREO MAP PLOTTER [email or web address] (ml) Colloids volume administered ( ml) Blood Product volume administered (ml) Total IV fluid infused 700 05/07/24 15:59 STEREO MAP PLOTTER [email or web address] Anesthesia Postop Eval I: Summary Notes Anesthesia Complication No 05/07/24 15:59 STEREO MAP PLOTTER [email or web address] Anesthesia Complication Comment: Post-operative progress note Anesthesia: Postop Eval II Evaluation Mental status: Awake and Calm Pain Level: 2 nausea: No Vomiting: No Complications Anesthesia Complication: No
[2024-05-07] MEDS: traZODone 100 MG Tablet PO (21:32)
[2024-05-07] MEDS: Pantoprazole Sodium 40 MG Tablet PO (21:33)
[2024-05-07] MEDS: Tacrolimus 0.5 MG Capsule PO (21:33)
[2024-05-07] MEDS: Carvedilol 6.25 MG Tablet PO (21:33)
[2024-05-07] MEDS: Cholecalciferol (VIT D3) 25 MCG TABLET (1,000 UNITS) PO (21:33)
[2024-05-07] MEDS: Acetaminophen 500 MG Tablet 1000 MG PO (21:33)
[2024-05-07] MEDS: Atorvastatin Calcium 40 MG Tablet PO (21:34)
[2024-05-07] MEDS: Pramipexole Di-HCl 0.5 MG Tablet PO (21:35)
[2024-05-07] MEDS: Gabapentin 100 MG Capsule 200 MG PO (21:56)
[2024-05-07 23:37] LABS: Bedside Glucose 150 mg/dL (74-106)
[2024-05-08] VITALS (15 sets, daily range): BP systolic 107–218; BP diastolic 40–101; PULSE 70–99; RESP 14–16; TEMP 36.4–37.1; O2SAT 94–100; BMI 36.1; BMI 35.3
[2024-05-08] MEDS: Acetaminophen 500 MG Tablet 1000 MG PO ×3 (04:25→20:31)
[2024-05-08] MEDS: oxyCODONE 5 MG Tablet PO ×3 (04:25→20:33)
[2024-05-08] MEDS: Levothyroxine 88 MCG Tablet PO (04:26)
[2024-05-08 06:38] LABS: Absolute Lymphocyte Count 0.49 X10^3/uL (0.83-4.51); Absolute Neutrophil Count 3.6 X10^3/uL (2.0-7.7); Basophil# 0.01 X10^3/uL; Basophil% 0.2 % (0-1); Eosinophil# 0.12 X10^3/uL; Eosinophils% 2.6 % (0-5); Hemoglobin 8.3 g/dL (12.0-15.0); Lymphocyte # 0.49 X10^3/ul (0.83-4.51); Lymphocyte % 10.6 % (19-41); Mean Corp Hgb Conc 29.6 g/dL (32-36); Mean Corpuscular Hgb 30.5 pg (27.0-32.0); Mean Corpuscular Volume 102.9 fL (81-99); Mean Platelet Vol. 11.3 fl (6.2-12.0); Monocyte# 0.33 X10^3/uL; Monocyte% 7.2 % (0-10); NRBC Flagged by Analyzer 0 % (0-5); Neutrophil # 3.62 X10^3/uL (2.7-7.7); Neutrophil % 78.5 % (47-70); POSITIVE COUNT YES; POSITIVE DIFFERENTIAL YES; POSITIVE MORPHOLOGY YES; Platelet Count 88 K/mm3 (150-450); RBC Distribution Width CV 18.9 % (11.6-14.6); Red Blood Count 2.72 M/mm3 (4.2-5.4); White Blood Count 4.6 K/mm3 (4.4-11.0)
[2024-05-08 06:40] LABS: Differential Indicated SCAN CRITERIA MET
[2024-05-08 07:15] LABS: Bedside Glucose 89 mg/dL (74-106)
[2024-05-08 07:21] LABS: Differential Comment SCANNED; Platelet Estimate MOD DEC (ADEQ)
[2024-05-08 07:43] LABS: Anion Gap 13 (5-15); BUN 29 mg/dL (4-19); BUN/Creat Ratio 5.4 RATIO (10-20); Calcium,Total 9.5 mg/dL (7.6-11.0); Carbon Dioxide 25.6 mmol/L (21.0-32.0); Chloride 97 mmol/L (98-108); Creatinine, Serum 5.35 mg/dL (0.70-1.20); EST Glomerular Filtration Rate 8 (>60); Estimated Creatinine Clearance 12.02 ml/min (50-250); Glucose 117 mg/dL (70-99); Potassium 5.4 mmol/L (3.3-5.1); Sodium Level 135 mmol/L (133-145)
[2024-05-08] MEDS: 0.9% Normal Saline 1,000 ML IV.SOLN. 1000 ML OPERA.SITE (08:08)
[2024-05-08] MEDS: PureFlow B 2K Dialysis Soln 1 BAG 6 BAG PF (08:09)
--- NOTE | 2024-05-08 08:35 | PCM.PN.HOSP ---
Reason for Visit Reason for Visit: Diagnoses Other pancytopenia (05/06/24) Pathological fracture, left femur, initial encounter for fracture (05/06/24) Other specified disorders of bone, thigh (05/06/24) Fracture of unspecified part of neck of left femur, initial encounter for closed fracture (05/06/24) Subjective Subjective Patient underwent Left hip hemiarthroplasty by Dr. Brown on 05/08/2024 Objective Data Objective Data Vital Signs: Vital Signs Temp Pulse Resp BP Pulse Ox O2 Del Method O2 Flow Rate 97.9 F 78 14 152/58 H 100 Nasal Cannula 2 05/08/24 07:30 05/08/24 08:18 05/08/24 08:18 05/08/24 08:18 05/08/24 07:30 05/08/24 08:23 05/08/24 08:23 Oxygen Flow Rate (L/min) 2 Oxygen Delivery Method Nasal Cannula Weight: 98.5 kg Body Mass Index (BMI) 36.1 Intake & Output: Intake and Output for Last 24 Hours 05/06/24 05/07/24 05/08/24 23:59 23:59 23:59 Intake Total 300 / 300 1120 / 1120 300 / 300 Output Total 4200 / 4200 Balance 300 / 300 -3080 / -3080 300 / 300 Lab / Micro Data 05/08/24 06:27 05/08/24 06:27 Labs: Laboratory Results - last 24 hr 05/07/24 04:57: Hemoglobin A1c 5.5 L, Free Gays LC, Quant Cancelled, Free Lambda LC, Quant Cancelled, Free Gays/Lambda Ratio Cancelled 05/07/24 11:36: POC Glucose 93 05/07/24 17:26: POC Glucose 146 H 05/07/24 23:08: POC Glucose 150 H 05/08/24 06:27: WBC 4.6, RBC 2.72 L, Hgb 8.3 L, Hct 28.0 L, MCV 102.9 H, MCH 30.5, MCHC 29.6 L, RDW Std Deviation 70.0 H, RDW Coeff of Tami 18.9 H, Plt Count 88 L, MPV 11.3, Immature Gran % (Auto) 0.900, Neut % (Auto) 78.5 H, Lymph % (Auto) 10.6 L, [place] % (Auto) 7.2, Eos % (Auto) 2.6, Baso % (Auto) 0.2, Absolute Neuts (auto) 3.6, Absolute Lymphs (auto) 0.49 L, Nucleated RBC % 0, Differential Comment SCANNED, Platelet Estimate MOD DEC, Sodium 135, Potassium 5.4 H, Chloride 97 L, Carbon Dioxide 25.6, Anion Gap 13, BUN 29 H, Creatinine 5.35 H, Estim Creat Clear Calc 12.02 L, Est GFR (MDRD) Non-Af 8 L, BUN/Creatinine Ratio 5.4 L, Glucose 117 H, Calcium 9.5 05/08/24 06:49: POC Glucose 89 Radiography Diagnostic Testing: Radiology Impression Hip X-Ray 05/07/24 16:25 IMPRESSION: Expected postop change from left hip prosthesis placement. Alignment is anatomic. Negative for fracture. 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 Reading [facility] Physical Exam Narrative GENERAL: cooperative HEENT: Atraumatic; normocephalic EYES; Anicteric, Normal Conjunctiva NECK; supple, normal thyroid, RESPIRATORY: Diminished to auscultation CARDIOVASCULAR: Regular S1 S2, GI: soft, normoactive bowel sounds, : No Renal angle tenderness; EXTREMITIES: No edema, no clubbing, MUSCULOSKELETAL: no muscle wasting NEURO: Awake; no lateralizing signs. SKIN: No Rash PSYCH; Flat affect Assessment & Plan Assessment/Plan (1) Closed fracture of left hip: QUALIFIERS: Encounter type: initial encounter Qualified Code(s): S72.002A - Fracture of unspecified part of neck of left femur, initial encounter for closed fracture PLAN: Plan Patient is a 68-year-old lady presenting with sudden onset of left hip pain imaging studies obtained on admission did show Acute basicervical fracture of the proximal left femur. 1. Acute left hip fracture ? Secondary to pathological fracture. Imaging studies obtained on admission did show Acute left basicervical fracture of the proximal left femur with cephalic migration of the distal fracture fragment. Soft tissue swelling. Subsequent imaging studies with CT demonstrated multiple osteolytic lesions noted involving the femoral head and neck as well as the anterior and posterior aspect of the acetabulum. Patient has been admitted to regular nursing floor initial management including immobilization, pain medications and consultation placed to orthopedic surgery. Patient remains at moderate to high risk for surgical intervention given her significant comorbidities including diabetes mellitus type 2, end-stage renal disease on hemodialysis as well as history of renal transplant on the finding of suspected metastatic disease. Patient has however been optimized for surgical intervention. Risk involved in the procedure to be discussed by orthopedic surgery ? 05/07/2024; patient scheduled to undergo surgical intervention this afternoon ? 05/08/2024; Patient underwent Left hip hemiarthroplasty by Dr. Brown on 05/08/2024 2. 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 Patient is currently on tacrolimus. Per patient recent repeat imaging studies demonstrated recurrence of cirrhotic lesions. Patient is followed by GI as outpatient 3. End-stage renal disease ? Patient is on hemodialysis Wednesdays and Fridays consult placed to Dr. Strickland with nephrology for dialysis orders ? Patient seen currently having dialysis 4. Hyperkalemia ? Secondary to patient end-stage renal disease patient hyperkalemia being treated through dialysis 5. Multiple osteolytic lesions involving the femoral head and neck as well as ACL and appendicular skeleton CT of the abdomen and pelvis obtained did show 1. Noncalcified left lower lobe micronodule. A subpleural nodule in the right lower lobe. Consider three-month follow-up for surveillance. 2. Scattered areas of ground-glass opacification throughout the right lung. Findings are most likely inflammatory. 3. Marked splenomegaly. 4. Bilateral nonobstructing nephrolithiasis. Small right renal cysts. Bilateral renal atrophy. 5. Status post cholecystectomy and hysterectomy. 6. Severe atherosclerotic visceral and aortoiliac calcific disease. 7. Fat containing left anterior wall ventral hernia. 8. Multiple osteolytic lesions in the axial and appendicular skeleton. Consider multiple myeloma. 9. Pathologic transcervical fracture of the left hip. 10. Diffuse inflammatory changes in the subcutaneous fat, abdomen and pelvis. 11. Other nonacute findings detailed above. ?Consult was placed to heme-onc. Also ordered urine light chain as well as protein electrophoresis 4. Diabetes mellitus type 2 ? Patient is on scheduled Premeal insulin, given anticipated surgical intervention in a.m. patient short acting insulin held. Placed on Accu-Cheks before meals and at bedtime with sliding scale coverage 5. History of cervical and uterine cancer ? Status post abdominal hysterectomy 6. Findings of possible metastatic disease with pathological fracture ? Consult has been placed to oncology to guide workup 7. GERD ? Patient is on PPI 8. Diabetic polyneuropathy ? Patient is on gabapentin 9. Class II obesity with BMI of 36 ? Complicating care weight loss advised 10. Hypertension ? Blood pressure controlled, home medications continued with dose adjustment as needed 11. Dyslipidemia ?Patient is on statin therapy, continued at home dose 12. Coronary artery disease ? With previous PCI. Patient is on guideline directed medical therapy including statin therapy beta-blockers and aspirin 14. Pancytopenia ? Secondary to chronic liver disease monitoring indices with daily CBC with differential 15. DVT prophylaxis ? Bilateral SCDs for now ? 05/08/2024 and order has been given for patient to be started on apixaban 2.5 mg p.o. twice daily Time spent in the patient's overall evaluation,decision-making process, review of diagnostic data, adjustment of management, discussion with other providers, nursing nursing and ancillary staff involved in patient's care documentation, 38 minutes Charges/Coding Visit Charges Inpatient E&M: 91987 Subs Hosp L2
[2024-05-08] MEDS: Midodrine HCl 5 MG Tablet 10 MG PO (10:02)
[2024-05-08 10:32] LABS: Bedside Glucose 76 mg/dL (74-106)
[2024-05-08 11:11] LABS: Bedside Glucose 150 mg/dL (74-106)
[2024-05-08] MEDS: Aspirin E.C. 81 MG Tablet PO (11:41)
[2024-05-08] MEDS: Carvedilol 6.25 MG Tablet PO ×2 (11:42→20:30)
[2024-05-08] MEDS: Torsemide 20 MG Tablet 60 MG PO (11:42)
[2024-05-08] MEDS: Pantoprazole Sodium 40 MG Tablet PO ×2 (11:43→20:31)
[2024-05-08] MEDS: Ascorbic Acid 500 MG Tablet 1000 MG PO (11:43)
[2024-05-08] MEDS: Folic Acid/Vitamin B Comp W-C 1 Capsule 1 CAP PO (11:43)
[2024-05-08] MEDS: Tacrolimus 0.5 MG Capsule PO ×2 (11:43→20:31)
[2024-05-08] MEDS: Pramipexole Di-HCl 1 MG Tablet PO (11:43)
[2024-05-08] MEDS: Cholecalciferol (VIT D3) 25 MCG TABLET (1,000 UNITS) PO ×2 (11:43→20:33)
[2024-05-08] MEDS: Sertraline 100 MG Tablet PO (11:43)
[2024-05-08] MEDS: Calcium Carbonate 500 MG Tablet PO (11:46)
[2024-05-08] MEDS: HYDROmorphone 1 MG/ML Syringe IV ×2 (11:50→22:24)
[2024-05-08] MEDS: 0.9% Saline Lock 10 ML Syringe IV ×2 (11:50→22:23)
--- NOTE | 2024-05-08 12:39 | PN.ORTHO_ITS ---
Subjective Subjective Patient is postop day 1 status post left hip hemiarthroplasty with Dr. Crump 05/07/2024. Patient resting comfortably in bed. Rates pain 5/ 10 at rest. With movement 9/10. States taking Tylenol and oxycodone and ice help to relieve pain. Patient has been up with therapy. Walking with the assit of a walker. Afebrile, no chest pain, shortness of breath, negative calf pain/ erythema, and no other signs of DVT. Objective Data Objective Data Vital Signs: Vital Signs Temp Pulse Resp BP Pulse Ox O2 Del Method O2 Flow Rate 97.8 F 87 16 144/50 H 94 Room Air 3.5 05/08/24 11:37 05/08/24 11:37 05/08/24 11:37 05/08/24 11:37 05/08/24 11:37 05/08/24 11:37 05/08/24 08:48 Oxygen Flow Rate (L/min) 3.5 Oxygen Delivery Method Room Air Weight: 96.2 kg Body Mass Index (BMI) 35.3 Intake & Output: Intake and Output for Last 24 Hours 05/06/24 05/07/24 05/08/24 23:59 23:59 23:59 Intake Total 300 / 300 1120 / 1120 660 / 660 Output Total 4200 / 4200 2300 / 2300 Balance 300 / 300 -3080 / -3080 -1640 / -1640 Lab / Micro Data 05/09/24 04:00 05/09/24 04:00 Labs: Laboratory Results - last 24 hr 05/07/24 17:26: POC Glucose 146 H 05/07/24 23:08: POC Glucose 150 H 05/08/24 06:27: WBC 4.6, RBC 2.72 L, Hgb 8.3 L, Hct 28.0 L, MCV 102.9 H, MCH 30.5, MCHC 29.6 L, RDW Std Deviation 70.0 H, RDW Coeff of Tami 18.9 H, Plt Count 88 L, MPV 11.3, Immature Gran % (Auto) 0.900, Neut % (Auto) 78.5 H, Lymph % (Auto) 10.6 L, Taylor % (Auto) 7.2, Eos % (Auto) 2.6, Baso % (Auto) 0.2, Absolute Neuts (auto) 3.6, Absolute Lymphs (auto) 0.49 L, Nucleated RBC % 0, Differential Comment SCANNED, Platelet Estimate MOD DEC, Sodium 135, Potassium 5.4 H, C hloride 97 L, Carbon Dioxide 25.6, Anion Gap 13, BUN 29 H, Creatinine 5.35 H, E stim Creat Clear Calc 12.02 L, Est GFR (MDRD) Non-Af 8 L, BUN/Creatinine Ratio 5.4 L, Glucose 117 H, Calcium 9.5 05/08/24 06:49: POC Glucose 89 05/08/24 10:13: POC Glucose 76 05/08/24 10:42: POC Glucose 150 H Radiography Diagnostic Testing: Radiology Impression Hip X-Ray 05/07/24 16:25 IMPRESSION: Expected postop change from left hip prosthesis placement. Alignment is anatomic. Negative for fracture. 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 Reading Location: [facility] Physical Exam Narrative Patient resting comfortably in bed No signs of acute distress Satting well on room air Limb is warm to touch, Sensation intact throughout entire lower extremity, including saphenous, sural, superficial and deep peroneal, and tibial distribution. DP/PT pulses bounding. Able to minimally flex at the hip Dorsiflexion and plantarflexion strength 4/5 Dressing clear dry intact Calf nontender to palpation, no erythema, no edema. Negative Homans Assessment & Plan Assessment/Plan (1) Pathologic fracture of femoral neck: QUALIFIERS: Encounter type: initial encounter Laterality: left Q ualified Code(s): M84.452A - Pathological fracture, left femur, initial encounter for fracture PLAN: 1. Will continue PT today. Weightbearing as tolerated. Posterior hip precautions x 6 weeks 2. plan for discharge per primary. From an orthopedic standpoint patient appears stable and cleared for discharge when able. 3. Patient will follow up for post op appointment in 2 weeks in our office. This will need to be arranged 4. WBC 4.6 no acute reactive leukocytosis 5. H/H 8.3/28.0: no acute post operavtive anemia secondary to acute blood loss intraoperatively. 6. DVT prophylaxis : Apixaban 2.5 mg twice daily x 4 weeks 7. Pain control: patient instructed to take tylenol 500mg 2 tablets TID. and oxycodone 1-2 tablets every 4-6 hours only as needed for pain control. 8. Continue recommendations per medicine for multiple medical issues including end-stage renal disease with hemodialysis Saturday, Saturday, Saturday, history of liver transplant history of cervical and uterine cancer, hyperlipidemia, diabetes, PAD. Oncology was consulted for management of lytic lesions of femoral neck causing pathologic fracture Intraoperative pathology is still pending. 9. ok to remove post op dressing. post op day 7. Okay to shower. 10. orthopaedics will sign off at this time (2) Lytic bone lesion of left femur:
--- NOTE | 2024-05-08 12:55 | CASEMGMT ---
Discharge Planning A list of?SNF providers including quality and resource use data and consistent with the patient's preferred geographic region, medical needs, and insurance network was created in [employer] Guide.? This list was provided to the SW. Julieta Marquis Discharge Planning Asst.
--- NOTE | 2024-05-08 13:15 | PCM.CONS.R ---
Assessment & Plan Assessment/Plan (1) End stage renal disease on dialysis: PLAN: On hemodialysis. Dialysis today, see orders. Hyperkalemia. Should improve with ongoing dialysis. Anemia. Newly discovered osteolytic lesions. Oncology note reviewed. Suspect myeloma. Workup pending. HPI Consult Data Date of Consult: 05/08/24 HPI Narrative Reason for Consultation: ESRD HPI Narrative: CHRISTINA KUO, is a 68 F who presents to the hospital with a hip fracture. She is status post surgery. Is incidentally noted to have osteolytic lesion. Oncology on consult. Suspects myeloma. Serum protein electrophoresis, kappa and lambda light sent, results pending. Currently denies any complaints except for pain at the surgical site. Breathing is okay. AV fistula for access. [facility] Medical History Hypokalemia Ankle sprain Contusion of right shoulder Contusion of right knee Cervical strain, acute History of subdural hematoma (post traumatic) Closed head injury Generalized weakness Ambulatory dysfunction Diabetes Dialysis patient Sleep apnea Easy bruising Restless legs Difficulty swallowing Dietary restriction History of ulceration Shortness of breath on exertion CPAP (continuous positive airway pressure) dependence Influenza A Sepsis Acute dyspnea Pneumonia Anxiety Depression Hypothyroidism Irregular heart beat Hypertension DVT (deep venous thrombosis) Multiple falls Uses wheelchair History of renal dialysis Osteoporosis Cirrhosis Non-smoker ESRD (end stage renal disease) Pancytopenia Chronic renal failure, stage 5 Infection involving suture with abscess Wears glasses Wears dentures Cancer Insulin dependent diabetes mellitus Anemia Hx of Krueger's palsy Back pain Gastric reflux COPD (chronic obstructive pulmonary disease) History of edema History of echocardiogram (~01/22/20) History of stress test (~12/07/19) Cardiology follow-up encounter [facility] History of uterine cancer Hypertension Anemia in chronic kidney disease Home Medications ?Medication ?Instructions ?Recorded ?Last Taken ?Type ascorbic acid (vitamin C) 500 mg 1,000 mg PO DAILY supplement 02/20/15 05/05/24 History chewable tablet cholecalciferol (vitamin D3) 25 1,000 unit PO BID supplement 02/20/15 05/05/24 History mcg (1,000 unit) tablet vitamin B complex 1 tablet PO DAILY SUPPLEMENT 09/10/19 05/05/24 History ropinirole 1 mg tablet 1 mg PO DAILY restless legs 05/23/20 05/05/24 History sevelamer carbonate 800 mg tablet 2,400 mg PO TIDCM kidney disease 06/10/20 05/05/24 History (Renvela) nitroglycerin 0.4 mg sublingual 0.4 mg sublingual Q5M PRN 04/29/21 Unknown Rx tablet Cardiac/Chest Pain #30 tabs biotin 1 mg capsule 1 mg PO BID supplement 08/11/21 05/05/24 History albuterol sulfate 90 mcg/actuation 2 puff IH Q4H PRN PRN Sob &/Or 10/25/21 Unknown Rx aerosol inhaler Wheezing 30 days #8.6 grams apremilast 30 mg tablet (Otezla) 30 mg PO DAILY 09/08/22 05/05/24 History levothyroxine 88 mcg tablet 88 mcg PO DAILY 12/31/22 05/05/24 History trazodone 100 mg tablet 100 mg PO QHS 12/31/22 05/05/24 History aspirin 81 mg tablet,delayed 81 mg PO DAILY 01/28/23 05/05/24 History release (Adult Aspirin Regimen) bisacodyl 10 mg rectal suppository 10 mg NE DAILY PRN constipation 02/12/23 07/03/23 Rx (Dulcolax (bisacodyl)) #30 ea midodrine 10 mg tablet 10 mg PO MOWEFR PRN hypotension 04/15/23 05/04/24 History carvedilol 12.5 mg tablet 6.25 mg PO BID 07/01/23 05/05/24 History nystatin 100,000 unit/gram topical 1 applic topical BID PRN PRN SKIN 07/01/23 Unknown History powder ([facility]) pantoprazole 40 mg tablet,delayed 40 mg PO BID 07/01/23 05/05/24 History release vancomycin 2 gram intravenous 1 g IV QMWF 38 days 11/25/23 Unknown Rx solution atorvastatin 40 mg tablet 40 mg PO QHS #30 tabs 01/14/24 05/05/24 Rx dicyclomine 10 mg capsule 10 mg PO DAILY PRN abdominal 01/14/24 Unknown History discomfort famotidine 20 mg tablet 20 mg PO QDAY 01/14/24 05/05/24 History insulin lispro 100 unit/mL 10 unit subcut TIDCM 01/14/24 Unknown History subcutaneous pen (Humalog KwikPen (U-100) Insulin) doxycycline monohydrate 100 mg 100 mg PO BID 05/06/24 05/06/24 History capsule gabapentin 100 mg capsule 200 mg PO QHS 05/06/24 05/05/24 History ropinirole 2 mg tablet 2 mg PO DAILY 05/06/24 05/05/24 History sertraline 100 mg tablet 100 mg PO DAILY 05/06/24 05/05/24 History suvorexant 10 mg tablet (Belsomra) 10 mg PO QHS 05/06/24 05/05/24 History tacrolimus 0.5 mg capsule, 0.5 mg PO Q12H 05/06/24 05/05/24 History immediate-release torsemide 20 mg tablet 60 mg PO .QAM 05/06/24 05/05/24 History vitamin B complex-vitamin C-folic 1 tab PO DAILY 05/06/24 05/05/24 History acid 0.8 mg tablet (Danae-Chet) Allergy/AdvReac Type Severity Reaction Status Date / Time amlodipine (From [facility]) Allergy Severe Hives Verified 05/01/24 02:28 ampicillin sodium (From Allergy Severe Hives Verified 05/01/24 02:28 Unasyn) buspirone HCl (From BuSpar) Allergy Severe Hives Verified 05/01/24 02:28 cefadroxil (From Duricef) Allergy Severe Hives Verified 05/01/24 02:28 lisinopril Allergy Severe Swelling Verified 05/01/24 02:28 naproxen Allergy Severe Hives Verified 05/01/24 02:28 niacin (From Niaspan Allergy Severe Hives Verified 05/01/24 02:28 Extended-Release) sulbactam sodium (From Allergy Severe Hives Verified 05/01/24 02:28 Unasyn) Sulfa (Sulfonamide Allergy Severe Hives Verified 05/01/24 02:28 Antibiotics) tramadol Allergy Mild Nausea Verified 05/01/24 02:28 cephalexin (From Keflex) Allergy Vomiting Verified 05/01/24 02:28 omeprazole AdvReac Severe Other Verified 05/01/24 02:28 losartan AdvReac Swelling Verified 05/01/24 02:28 Family History Mother Diabetes Anemia Father Hypertension LUNG/RESPIRATORY DISEASE Surgical History History of esophagogastroduodenoscopy (EGD) History of coronary artery stent placement History of cardiac catheterization History of appendectomy S/P arteriovenous (AV) fistula creation (~06/16/20) History of cholecystectomy History of left salpingo-oophorectomy History of radical hysterectomy History of left knee surgery History of ventral hernia repair History of liver transplant Social History housing: apartment current occupational status: disabled Smoking Status: Never smoker substance use type: does not use ROS ROS Narrative Negative except above Physical Exam Narrative Alert awake oriented x 3 no obvious distress no pallor no icterus no JVD s1s2 no murmurs lungs clear abdomen soft no organomegaly no edema Lab / Micro Data 05/08/24 06:27 05/08/24 06:27 Labs: Laboratory Results - last 24 hr 05/07/24 17:26: POC Glucose 146 H 05/07/24 23:08: POC Glucose 150 H 05/08/24 06:27: WBC 4.6, RBC 2.72 L, Hgb 8.3 L, Hct 28.0 L, MCV 102.9 H, MCH 30.5, MCHC 29.6 L, RDW Std Deviation 70.0 H, RDW Coeff of Tami 18.9 H, Plt Count 88 L, MPV 11.3, Immature Gran % (Auto) 0.900, Neut % (Auto) 78.5 H, Lymph % (Auto) 10.6 L, [place] % (Auto) 7.2, Eos % (Auto) 2.6, Baso % (Auto) 0.2, Absolute Neuts (auto) 3.6, Absolute Lymphs (auto) 0.49 L, Nucleated RBC % 0, Differential Comment SCANNED, Platelet Estimate MOD DEC, Sodium 135, Potassium 5.4 H, Chloride 97 L, Carbon Dioxide 25.6, Anion Gap 13, BUN 29 H, Creatinine 5.35 H, Estim Creat Clear Calc 12.02 L, Est GFR (MDRD) Non-Af 8 L, BUN/Creatinine Ratio 5.4 L, Glucose 117 H, Calcium 9.5 05/08/24 06:49: POC Glucose 89 05/08/24 10:13: POC Glucose 76 05/08/24 10:42: POC Glucose 150 H Imaging Radiology Impression Hip X-Ray 05/07/24 16:25 IMPRESSION: Expected postop change from left hip prosthesis placement. Alignment is anatomic. Negative for fracture. 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 Reading Location: [facility]
--- NOTE | 2024-05-08 13:41 | CASEMGMT ---
Addendum entered by Ken More 05/08/24 14:09: RN ARIAS placed call to [facility], notified pt has been admitted to [facility] and will not be discharged over the weekend. The also were made aware that plan is for pt to dc to a SNF and to f/u with MS3 RN ARIAS on Saturday. Original Note: RN CM hot plate plywood press offbearer CM to room to meet with patient for initial transition planning/care coordination assessment. RN CM introduced self and role at [facility], pt voices understanding. Pt is A&O, sitting up in chair in room. Care providers, pharmacy, and demographics verified. LACE Strata: 3 PCP: Dr Archuleta Specialists: Dr Strickland (Floating Operator), Dr Maurer (wound care physician), Dr Dennis (ice carver) ESRD/HD: [facility], chair time 0600. Preferred Pharmacy: [facility] Insurance: [employer] [facility] Prescription Benefit: Yes LNOK: Carlos Guerrier (H), Yolanda Guerrier (GD), Kiet (Son) Living Arrangements: Pt lives in a 2nd-floor apartment with her with 14 steps to enter the home., but can enter through the back door, where there are only [address] up to back door as close as he can, so pt does not have to walk far. assists her in/out of shower, but she is able to wash self. Pt manages her own medications. Pt is able to cook by sitting on her W/C. 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 goes to basement to wash/dry laundry and pt folds them. Transportation: drives. [facility] provides [facility] DME: Pt has a shower chair. She also has a cane but does not use. She has an electric W/C she uses in the basement and community distances and to OP HD. She has a Dexcom CGM and reports having sufficient supplies. She also has a back-up glucometer w/supplies. She reports having enough insulin and needles. 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 She was provided w/medical alert info last admission, but states did not end up getting one d/t limited income. HHC/SNF: Pt was @ [facility] in September,, but states she had a bad experience, left AMA, and states does not want to ever go back there again. She is active w/[facility]. Therapy has worked w/pt and SNF is recommended. NIEVES BIANCHI discussed discharge plan w/pt. She states she does not want to go to a SNF, but she states there is no way that she can go down the steps in her apt to be able to go to OP HD appts. She states she realizes SNF is the only current option. She states she would look over a list of SNF options and discuss things w/her .. List that was prepared by [facility] assistant, provided to pt. Sherin WONG, made aware and will f/u with pt. Plan: SNF Rolando DOWNING RN, CM
--- NOTE | 2024-05-08 14:04 | CASEMGMT ---
Discharge Planning [facility] updated that pt has been admitted and dc plan is snf. Julieta Marquis, PORFIRIO Planning Asst.
[2024-05-08 16:08] LABS: Free Kappa Light Chains 119.7 mg/L (3.3-19.4); Free Lambda Light Chains 99.9 mg/L (5.7-26.3)
[2024-05-08 17:01] LABS: Bedside Glucose 150 mg/dL (74-106)
[2024-05-08] MEDS: SEVELAMER CARBONATE 800 MG TABLET 2400 MG PO (17:13)
[2024-05-08] MEDS: APIXABAN 2.5 MG TABLET (WCH) PO (20:30)
[2024-05-08] MEDS: Atorvastatin Calcium 40 MG Tablet PO (20:30)
[2024-05-08] MEDS: traZODone 100 MG Tablet PO (20:30)
[2024-05-08] MEDS: Pramipexole Di-HCl 0.5 MG Tablet PO (20:30)
[2024-05-08] MEDS: Gabapentin 100 MG Capsule 200 MG PO (20:30)
[2024-05-08 22:37] LABS: Bedside Glucose 177 mg/dL (74-106)
[2024-05-09 02:23] VITALS: BP 111/47; PULSE 90; RESP 18; TEMP 36.4; O2SAT 97
[2024-05-09 05:59] VITALS: BMI 36.9
[2024-05-09] MEDS: Acetaminophen 500 MG Tablet 1000 MG PO ×3 (06:39→21:20)
[2024-05-09] MEDS: Insulin Lispro 100 UNIT/ML INSULN.PEN SC (06:39)
[2024-05-09] MEDS: Levothyroxine 88 MCG Tablet PO (06:39)
[2024-05-09 06:47] LABS: Absolute Lymphocyte Count 0.46 X10^3/uL (0.83-4.51); Absolute Neutrophil Count 3.9 X10^3/uL (2.0-7.7); Basophil# 0.01 X10^3/uL; Basophil% 0.2 % (0-1); Eosinophil# 0.03 X10^3/uL; Eosinophils% 0.6 % (0-5); Hematocrit 27.3 % (37-47); Hemoglobin 8.1 g/dL (12.0-15.0); Lymphocyte # 0.46 X10^3/ul (0.83-4.51); Lymphocyte % 9.8 % (19-41); Mean Corp Hgb Conc 29.7 g/dL (32-36); Mean Corpuscular Hgb 30.9 pg (27.0-32.0); Mean Corpuscular Volume 104.2 fL (81-99); Mean Platelet Vol. 11.9 fl (6.2-12.0); Monocyte# 0.27 X10^3/uL; Monocyte% 5.7 % (0-10); NRBC Flagged by Analyzer 0 % (0-5); Neutrophil # 3.91 X10^3/uL (2.7-7.7); Neutrophil % 83.1 % (47-70); POSITIVE COUNT YES; POSITIVE DIFFERENTIAL YES; POSITIVE MORPHOLOGY YES; Platelet Count 88 K/mm3 (150-450); RBC Distribution Width CV 18.6 % (11.6-14.6); RBC Distribution Width SD 69.4 fl (35.1-43.9); Red Blood Count 2.62 M/mm3 (4.2-5.4); White Blood Count 4.7 K/mm3 (4.4-11.0)
[2024-05-09 06:48] LABS: Differential Indicated SCAN CRITERIA MET
[2024-05-09 07:05] LABS: Bedside Glucose 193 mg/dL (74-106)
[2024-05-09 07:12] LABS: Anion Gap 13 (5-15); BUN 29 mg/dL (4-19); BUN/Creat Ratio 6.5 RATIO (10-20); Carbon Dioxide 24.4 mmol/L (21.0-32.0); Chloride 96 mmol/L (98-108); Creatinine, Serum 4.47 mg/dL (0.70-1.20); EST Glomerular Filtration Rate 10 (>60); Estimated Creatinine Clearance 14.54 ml/min (50-250); Glucose 240 mg/dL (70-99); Potassium 5.4 mmol/L (3.3-5.1); Sodium Level 133 mmol/L (133-145)
[2024-05-09 07:21] LABS: Anisocytosis 1+
--- NOTE | 2024-05-09 07:45 | PN.HOSP_ITS ---
Reason for Visit Reason for Visit: Diagnoses Other pancytopenia (05/06/24) Pathological fracture, left femur, initial encounter for fracture (05/06/24) Other specified disorders of bone, thigh (05/06/24) End stage renal disease (05/06/24) Fracture of unspecified part of neck of left femur, initial encounter for closed fracture (05/06/24) Dependence on renal dialysis (05/06/24) Subjective Subjective Postoperative day 2 following left hip hemiarthroplasty. Patient pain remains controlled. Plan is for patient to be discharged [facility] pending bed availability and insurance approval Objective Data Objective Data Vital Signs: Vital Signs Temp Pulse Resp BP Pulse Ox O2 Del Method O2 Flow Rate 97.6 F L 90 18 111/47 L 97 Room Air 3.5 05/09/24 02:23 05/09/24 02:23 05/09/24 02:23 05/09/24 02:23 05/09/24 02:23 05/09/24 02:23 05/08/24 08:48 Oxygen Flow Rate (L/min) 3.5 Oxygen Delivery Method Room Air Weight: 100.5 kg Body Mass Index (BMI) 36.9 Intake & Output: Intake and Output for Last 24 Hours 05/07/24 05/08/24 05/09/24 23:59 23:59 23:59 Intake Total 1120 / 1120 660 / 1135 525 / 525 Output Total 4200 / 4200 2300 / 2300 Balance -3080 / -3080 -1640 / -1165 525 / 525 Lab / Micro Data 05/09/24 04:00 05/09/24 04:00 Labs: Laboratory Results - last 24 hr 05/07/24 04:57: Free Delleker LC, Quant 119.7 H, Free Lambda LC, Quant 99.9 H, Free Delleker/Lambda Ratio 1.20 05/08/24 10:13: POC Glucose 76 05/08/24 10:42: POC Glucose 150 H 05/08/24 16:25: POC Glucose 150 H 05/08/24 20:38: POC Glucose 177 H 05/09/24 04:00: WBC 4.7, RBC 2.62 L, Hgb 8.1 L, Hct 27.3 L, MCV 104.2 H, MCH 30.9, MCHC 29.7 L, RDW Std Deviation 69.4 H, RDW Coeff of Tami 18.6 H, Plt Count 88 L, MPV 11.9, Immature Gran % (Auto) 0.600, Neut % (Auto) 83.1 H, Lymph % (Auto) 9.8 L, Rac[place] % (Auto) 5.7, Eos % (Auto) 0.6, Baso % (Auto) 0.2, Absolute Neuts (auto) 3.9, Absolute Lymphs (auto) 0.46 L, Nucleated RBC % 0, Anisocytosis 1+, Sodium 133, Potassium 5.4 H, Chloride 96 L, Carbon Dioxide 24.4, Anion Gap 13, BUN 29 H, Creatinine 4.47 H, Estim Creat Clear Calc 14.54 L, Est GFR (MDRD) Non-Af 10 L, BUN/Creatinine Ratio 6.5 L, Glucose 240 H, Calcium 10.0 05/09/24 06:37: POC Glucose 193 H Physical Exam Narrative GENERAL: cooperative HEENT: Atraumatic; normocephalic EYES; Anicteric, Normal Conjunctiva NECK; supple, normal thyroid, RESPIRATORY: Diminished to auscultation CARDIOVASCULAR: Regular S1 S2, GI: soft, normoactive bowel sounds, : No Renal angle tenderness; EXTREMITIES: No edema, no clubbing, MUSCULOSKELETAL: no muscle wasting NEURO: Awake; no lateralizing signs. SKIN: No Rash PSYCH; Flat affect Assessment & Plan Assessment/Plan (1) Closed fracture of left hip: QUALIFIERS: Encounter type: initial encounter Qualified Code(s): S72.002A - Fracture of unspecified part of neck of left femur, initial encounter for closed fracture PLAN: Plan Patient is a 68-year-old lady presenting with sudden onset of left hip pain imaging studies obtained on admission did show Acute basicervical fracture of the proximal left femur. 1. Acute left hip fracture ? Secondary to pathological fracture. Imaging studies obtained on admission did show Acute left basicervical fracture of the proximal left femur with cephalic migration of the distal fracture fragment. Soft tissue swelling. Subsequent imaging studies with CT demonstrated multiple osteolytic lesions noted involving the femoral head and neck as well as the anterior and posterior aspect of the acetabulum. Patient has been admitted to regular nursing floor initial management including immobilization, pain medications and consultation placed to orthopedic surgery. Patient remains at moderate to high risk for surgical intervention given her significant comorbidities including diabetes mellitus type 2, end-stage renal disease on hemodialysis as well as history of renal transplant on the finding of suspected metastatic disease. Patient has however been optimized for surgical intervention. Risk involved in the procedure to be discussed by orthopedic surgery ? 05/07/2024; patient scheduled to undergo surgical intervention this afternoon ? 05/08/2024; Patient underwent Left hip hemiarthroplasty by Dr. Crump on 05/08/2024 ? 05/09/2024; postoperative day 2 following left hip hemiarthroplasty. Patient pain remains controlled. Plan is for patient to be [facility] pending bed availability and insurance approval 2. 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 Patient is currently on tacrolimus. Per patient recent repeat imaging studies demonstrated recurrence of cirrhotic lesions. Patient is followed by GI as outpatient 3. End-stage renal disease ? Patient is on hemodialysis Wednesdays and Fridays consult placed to Dr. Strickland with nephrology for dialysis orders ? Patient seen currently having dialysis 4. Hyperkalemia ? Secondary to patient end-stage renal disease patient hyperkalemia being treated through dialysis 5. Multiple osteolytic lesions involving the femoral head and neck as well as ACL and appendicular skeleton CT of the abdomen and pelvis obtained did show 1. Noncalcified left lower lobe micronodule. A subpleural nodule in the right lower lobe. Consider three-month follow-up for surveillance. 2. Scattered areas of ground-glass opacification throughout the right lung. Findings are most likely inflammatory. 3. Marked splenomegaly. 4. Bilateral nonobstructing nephrolithiasis. Small right renal cysts. Bilateral renal atrophy. 5. Status post cholecystectomy and hysterectomy. 6. Severe atherosclerotic visceral and aortoiliac calcific disease. 7. Fat containing left anterior wall ventral hernia. 8. Multiple osteolytic lesions in the axial and appendicular skeleton. Consider multiple myeloma. 9. Pathologic transcervical fracture of the left hip. 10. Diffuse inflammatory changes in the subcutaneous fat, abdomen and pelvis. 11. Other nonacute findings detailed above. ?Consult was placed to heme-onc. Also ordered urine light chain as well as protein electrophoresis 4. Diabetes mellitus type 2 ? Patient is on scheduled Premeal insulin, given anticipated surgical intervention in a.m. patient short acting insulin held. Placed on Accu-Cheks before meals and at bedtime with sliding scale coverage 5. History of cervical and uterine cancer ? Status post abdominal hysterectomy 6. Findings of possible metastatic disease with pathological fracture ? Consult has been placed to oncology to guide workup 7. GERD ? Patient is on PPI 8. Diabetic polyneuropathy ? Patient is on gabapentin 9. Class II obesity with BMI of 36 ? Complicating care weight loss advised 10. Hypertension ? Blood pressure controlled, home medications continued with dose adjustment as needed 11. Dyslipidemia ?Patient is on statin therapy, continued at home dose 12. Coronary artery disease ? With previous PCI. Patient is on guideline directed medical therapy including statin therapy beta-blockers and aspirin 14. Pancytopenia ? Secondary to chronic liver disease monitoring indices with daily CBC with differential 15. DVT prophylaxis ? Bilateral SCDs for now ? 05/08/2024 and order has been given for patient to be started on apixaban 2.5 mg p.o. twice daily Time spent in the patient's overall evaluation,decision-making process, review of diagnostic data, adjustment of management, discussion with other providers, nursing nursing and ancillary staff involved in patient's care documentation, 36 minutes Charges/Coding Visit Charges Inpatient E&M: 35828 Subs Hosp L2
[2024-05-09 08:08] VITALS: O2SAT 94
[2024-05-09 08:15] VITALS: BP 102/46; PULSE 82; RESP 16; TEMP 36.8; O2SAT 94
[2024-05-09] MEDS: Ascorbic Acid 500 MG Tablet 1000 MG PO (08:19)
[2024-05-09] MEDS: SEVELAMER CARBONATE 800 MG TABLET 2400 MG PO ×3 (08:19→16:47)
[2024-05-09] MEDS: Sertraline 100 MG Tablet PO (08:20)
[2024-05-09] MEDS: Folic Acid/Vitamin B Comp W-C 1 Capsule 1 CAP PO (08:20)
[2024-05-09] MEDS: Pantoprazole Sodium 40 MG Tablet PO ×2 (08:20→21:20)
[2024-05-09] MEDS: Cholecalciferol (VIT D3) 25 MCG TABLET (1,000 UNITS) PO ×2 (08:21→21:21)
[2024-05-09] MEDS: Tacrolimus 0.5 MG Capsule PO ×2 (08:21→21:20)
[2024-05-09] MEDS: Calcium Carbonate 500 MG Tablet PO ×2 (08:21→11:37)
[2024-05-09] MEDS: Aspirin E.C. 81 MG Tablet PO (08:21)
[2024-05-09] MEDS: APIXABAN 2.5 MG TABLET (WCH) PO ×2 (08:22→21:19)
[2024-05-09] MEDS: Pramipexole Di-HCl 1 MG Tablet PO (08:23)
[2024-05-09] MEDS: Torsemide 20 MG Tablet 60 MG PO (08:25)
--- NOTE | 2024-05-09 09:46 | CASEMGMT ---
SW met with patient. Introduced self and role at [facility]. SW asked patient if she and her had a chance to review the SNF list. Patient said she read the facilities off to him. SW asked they made any choices. Patient said they have not. Yudy WEBER
[2024-05-09 11:56] LABS: Bedside Glucose 176 mg/dL (74-106)
--- NOTE | 2024-05-09 12:50 | CASEMGMT ---
SW checked back with patient as her was present. Their 3 choices were [facility], [facility], and [facility]. SW asked if that is the order of their preferences and patient said she wants to go to a facility that has onsite dialysis. SW told patient the only one of those three that has onsite dialysis is [facility]. Patient said that is her first choice. SW explained SW will make a referral. However, will likely not hear back until Saturday. SW send a referral to [facility] via [facility]. Yudy Sidhu CLINICAL APPLICATION MANAGER TIA
--- NOTE | 2024-05-09 13:22 | CASEMGMT ---
Referral sent to [facility] via [facility]. Yudy Sidhu PILLOWCASE CLEANER TIA
[2024-05-09 14:15] VITALS: BP 125/48; PULSE 78; RESP 16; TEMP 36.8; O2SAT 96
[2024-05-09] MEDS: oxyCODONE 5 MG Tablet 10 MG PO ×2 (14:21→21:21)
[2024-05-09 17:09] LABS: Bedside Glucose 126 mg/dL (74-106)
[2024-05-09 21:12] VITALS: BP 127/50; PULSE 80; RESP 16; TEMP 36.7; O2SAT 100
[2024-05-09] MEDS: Carvedilol 6.25 MG Tablet PO (21:18)
[2024-05-09] MEDS: traZODone 100 MG Tablet PO (21:18)
[2024-05-09] MEDS: Pramipexole Di-HCl 0.5 MG Tablet PO (21:19)
[2024-05-09] MEDS: Gabapentin 100 MG Capsule 200 MG PO (21:19)
[2024-05-09] MEDS: Atorvastatin Calcium 40 MG Tablet PO (21:19)
[2024-05-09] MEDS: Nystatin Powder 15gm Bottle 1 APPLIC TOPICAL (21:19)
[2024-05-09 22:22] LABS: Bedside Glucose 138 mg/dL (74-106)
[2024-05-10 04:12] VITALS: BP 127/52; PULSE 78; RESP 18; TEMP 36.8; O2SAT 100
[2024-05-10 06:00] VITALS: BMI 35.9
[2024-05-10] MEDS: Acetaminophen 500 MG Tablet 1000 MG PO ×3 (06:21→20:51)
[2024-05-10] MEDS: Levothyroxine 88 MCG Tablet PO (06:21)
[2024-05-10 06:34] LABS: Absolute Lymphocyte Count 0.55 X10^3/uL (0.83-4.51); Absolute Neutrophil Count 2.6 X10^3/uL (2.0-7.7); Basophil# 0.01 X10^3/uL; Basophil% 0.3 % (0-1); Eosinophil# 0.12 X10^3/uL; Eosinophils% 3.3 % (0-5); Hematocrit 23.8 % (37-47); Hemoglobin 7.2 g/dL (12.0-15.0); Lymphocyte # 0.55 X10^3/ul (0.83-4.51); Lymphocyte % 15.1 % (19-41); Mean Corp Hgb Conc 30.3 g/dL (32-36); Mean Corpuscular Hgb 30.9 pg (27.0-32.0); Mean Corpuscular Volume 102.1 fL (81-99); Mean Platelet Vol. 11.6 fl (6.2-12.0); Monocyte# 0.32 X10^3/uL; Monocyte% 8.8 % (0-10); NRBC Flagged by Analyzer 0 % (0-5); Neutrophil # 2.62 X10^3/uL (2.7-7.7); Neutrophil % 71.7 % (47-70); POSITIVE COUNT YES; POSITIVE DIFFERENTIAL YES; POSITIVE MORPHOLOGY YES; Platelet Count 82 K/mm3 (150-450); RBC Distribution Width CV 18.7 % (11.6-14.6); RBC Distribution Width SD 69.8 fl (35.1-43.9); Red Blood Count 2.33 M/mm3 (4.2-5.4); White Blood Count 3.7 K/mm3 (4.4-11.0)
[2024-05-10 06:43] LABS: Differential Indicated SCAN CRITERIA MET
[2024-05-10 06:45] LABS: Bedside Glucose 108 mg/dL (74-106)
[2024-05-10 06:55] LABS: Anion Gap 12 (5-15); BUN 44 mg/dL (4-19); BUN/Creat Ratio 7.7 RATIO (10-20); Calcium,Total 9.9 mg/dL (7.6-11.0); Carbon Dioxide 24.5 mmol/L (21.0-32.0); Chloride 96 mmol/L (98-108); Creatinine, Serum 5.67 mg/dL (0.70-1.20); EST Glomerular Filtration Rate 8 (>60); Estimated Creatinine Clearance 11.31 ml/min (50-250); Glucose 98 mg/dL (70-99); Potassium 5.4 mmol/L (3.3-5.1); Sodium Level 133 mmol/L (133-145)
[2024-05-10 07:20] VITALS: O2SAT 98
--- NOTE | 2024-05-10 07:29 | PN.HOSP_ITS ---
Reason for Visit Reason for Visit: Diagnoses Other pancytopenia (05/06/24) Pathological fracture, left femur, initial encounter for fracture (05/06/24) Other specified disorders of bone, thigh (05/06/24) End stage renal disease (05/06/24) Fracture of unspecified part of neck of left femur, initial encounter for closed fracture (05/06/24) Dependence on renal dialysis (05/06/24) Subjective Subjective Patient seen pain control much better compared to previous day. Hemoglobin down to 7.2. Case was discussed with case management the day prior plan is for patient to be discharged to senior living facility pending insurance approval Objective Data Objective Data Vital Signs: Vital Signs Temp Pulse Resp BP Pulse Ox O2 Del Method O2 Flow Rate 98.3 F 78 18 127/52 H 100 Nasal Cannula 2 05/10/24 04:12 05/10/24 04:12 05/10/24 04:12 05/10/24 04:12 05/10/24 04:12 05/10/24 04:12 05/10/24 04:12 Oxygen Flow Rate (L/min) 2 Oxygen Delivery Method Nasal Cannula Weight: 98 kg Body Mass Index (BMI) 35.9 Intake & Output: Intake and Output for Last 24 Hours 05/08/24 05/09/24 05/11/24 23:59 23:59 00:59 Intake Total 660 / 1135 525 / 600 75 / 75 Output Total 2300 / 2300 Balance -1640 / -1165 525 / 600 75 / 75 Lab / Micro Data 05/10/24 05:24 05/10/24 05:24 Labs: Laboratory Results - last 24 hr 05/09/24 04:00: WBC 4.7, RBC 2.62 L, Hgb 8.1 L, Hct 27.3 L, MCV 104.2 H, MCH 30.9, MCHC 29.7 L, RDW Std Deviation 69.4 H, RDW Coeff of Tami 18.6 H, Plt Count 88 L, MPV 11.9, Immature Gran % (Auto) 0.600, Neut % (Auto) 83.1 H, Lymph % (Auto) 9.8 L, Perry % (Auto) 5.7, Eos % (Auto) 0.6, Baso % (Auto) 0.2, Absolute Neuts (auto) 3.9, Absolute Lymphs (auto) 0.46 L, Nucleated RBC % 0, Anisocytosis 1+, Sodium 133, Potassium 5.4 H, Chloride 96 L, Carbon Dioxide 24.4, Anion Gap 13, BUN 29 H, Creatinine 4.47 H, Estim Creat Clear Calc 14.54 L, Est GFR (MDRD) Non-Af 10 L, BUN/Creatinine Ratio 6.5 L, Glucose 240 H, Calcium 10.0 05/09/24 06:37: POC Glucose 193 H 05/09/24 11:34: POC Glucose 176 H 05/09/24 16:45: POC Glucose 126 H 05/09/24 21:15: POC Glucose 138 H 05/10/24 05:24: WBC 3.7 L, RBC 2.33 L, Hgb 7.2 L, Hct 23.8 L, MCV 102.1 H, MCH 30.9, MCHC 30.3 L, RDW Std Deviation 69.8 H, RDW Coeff of Tami 18.7 H, Plt Count 82 L, MPV 11.6, Immature Gran % (Auto) 0.800, Neut % (Auto) 71.7 H, Lymph % (Auto) 15.1 L, Perry % (Auto) 8.8, Eos % (Auto) 3.3, Baso % (Auto) 0.3, Absolute Neuts (auto) 2.6, Absolute Lymphs (auto) 0.55 L, Nucleated RBC % 0, Sodium 133, Potassium 5.4 H, Chloride 96 L, Carbon Dioxide 24.5, Anion Gap 12, BUN 44 H, C reatinine 5.67 H, Estim Creat Clear Calc 11.31 L, Est GFR (MDRD) Non-Af 8 L, B UN/Creatinine Ratio 7.7 L, Glucose 98, Calcium 9.9 05/10/24 06:17: POC Glucose 108 H Physical Exam Narrative GENERAL: cooperative HEENT: Atraumatic; normocephalic EYES; Anicteric, Normal Conjunctiva NECK; supple, normal thyroid, RESPIRATORY: Diminished to auscultation CARDIOVASCULAR: Regular S1 S2, GI: soft, normoactive bowel sounds, : No Renal angle tenderness; EXTREMITIES: No edema, no clubbing, MUSCULOSKELETAL: no muscle wasting NEURO: Awake; no lateralizing signs. SKIN: No Rash PSYCH; Flat affect Assessment & Plan Assessment/Plan (1) Closed fracture of left hip: QUALIFIERS: Encounter type: initial encounter Qualified Code(s): S72.002A - Fracture of unspecified part of neck of left femur, initial encounter for closed fracture PLAN: Plan Patient is a 68-year-old lady presenting with sudden onset of left hip pain imaging studies obtained on admission did show Acute basicervical fracture of the proximal left femur. 1. Acute left hip fracture ? Secondary to pathological fracture. Imaging studies obtained on admission did show Acute left basicervical fracture of the proximal left femur with cephalic migration of the distal fracture fragment. Soft tissue swelling. Subsequent imaging studies with CT demonstrated multiple osteolytic lesions noted involving the femoral head and neck as well as the anterior and posterior aspect of the acetabulum. Patient has been admitted to regular nursing floor initial management including immobilization, pain medications and consultation placed to orthopedic surgery. Patient remains at moderate to high risk for surgical intervention given her significant comorbidities including diabetes mellitus type 2, end-stage renal disease on hemodialysis as well as history of renal transplant on the finding of suspected metastatic disease. Patient has however been optimized for surgical intervention. Risk involved in the procedure to be discussed by orthopedic surgery ? 05/07/2024; patient scheduled to undergo surgical intervention this afternoon ? 05/08/2024; Patient underwent Left hip hemiarthroplasty by Dr. Crump on 05/08/2024 ? 05/09/2024; postoperative day 2 following left hip hemiarthroplasty. Patient pain remains controlled. Plan is for patient to be discharged to senior living facility pending bed availability and insurance approval 2. 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 Patient is currently on tacrolimus. Per patient recent repeat imaging studies demonstrated recurrence of cirrhotic lesions. Patient is followed by GI as outpatient 3. End-stage renal disease ? Patient is on hemodialysis Wednesdays and Fridays consult placed to Dr. Strickland with nephrology for dialysis orders ? Patient seen currently having dialysis 4. Hyperkalemia ? Secondary to patient end-stage renal disease patient hyperkalemia being treated through dialysis 5. Multiple osteolytic lesions involving the femoral head and neck as well as ACL and appendicular skeleton CT of the abdomen and pelvis obtained did show 1. Noncalcified left lower lobe micronodule. A subpleural nodule in the right lower lobe. Consider three-month follow-up for surveillance. 2. Scattered areas of ground-glass opacification throughout the right lung. Findings are most likely inflammatory. 3. Marked splenomegaly. 4. Bilateral nonobstructing nephrolithiasis. Small right renal cysts. Bilateral renal atrophy. 5. Status post cholecystectomy and hysterectomy. 6. Severe atherosclerotic visceral and aortoiliac calcific disease. 7. Fat containing left anterior wall ventral hernia. 8. Multiple osteolytic lesions in the axial and appendicular skeleton. Consider multiple myeloma. 9. Pathologic transcervical fracture of the left hip. 10. Diffuse inflammatory changes in the subcutaneous fat, abdomen and pelvis. 11. Other nonacute findings detailed above. ?Consult was placed to heme-onc. Also ordered urine light chain as well as protein electrophoresis ? 05/10/2024; patient 24-hour urine protein electrophoresis could not be performed given patient ESRD and significant anuria 4. Diabetes mellitus type 2 ? Patient is on scheduled Premeal insulin, given anticipated surgical intervention in a.m. patient short acting insulin held. Placed on Accu-Cheks before meals and at bedtime with sliding scale coverage 5. History of cervical and uterine cancer ? Status post abdominal hysterectomy 6. Findings of possible metastatic disease with pathological fracture ? Consult has been placed to oncology to guide workup 7. GERD ? Patient is on PPI 8. Diabetic polyneuropathy ? Patient is on gabapentin 9. Class II obesity with BMI of 36 ? Complicating care weight loss advised 10. Hypertension ? Blood pressure controlled, home medications continued with dose adjustment as needed 11. Dyslipidemia ?Patient is on statin therapy, continued at home dose 12. Coronary artery disease ? With previous PCI. Patient is on guideline directed medical therapy including statin therapy beta-blockers and aspirin 14. Pancytopenia ? Secondary to chronic liver disease monitoring indices with daily CBC with differential ? 05/10/2024 hemoglobin down to 7.2 plan is to transfuse if patient is deemed to be symptomatic or hemoglobin falls below 7 15. DVT prophylaxis ? Bilateral SCDs for now ? 05/08/2024 and order has been given for patient to be started on apixaban 2.5 mg p.o. twice daily Time spent in the patient's overall evaluation,decision-making process, review of diagnostic data, adjustment of management, discussion with other providers, nursing nursing and ancillary staff involved in patient's care documentation, 36 minutes Charges/Coding Visit Charges Inpatient E&M: 24106 Subs Hosp L2
[2024-05-10 07:44] LABS: Anisocytosis 2+; Hypochromasia 1+
[2024-05-10 07:45] LABS: Tear Drop Cell RARE
[2024-05-10 09:02] VITALS: BP 118/40; PULSE 72; RESP 16; TEMP 36.6; O2SAT 100
[2024-05-10] MEDS: SEVELAMER CARBONATE 800 MG TABLET 2400 MG PO ×3 (09:05→17:07)
[2024-05-10] MEDS: Tacrolimus 0.5 MG Capsule PO ×2 (09:05→20:51)
[2024-05-10] MEDS: Calcium Carbonate 500 MG Tablet PO ×3 (09:05→17:07)
[2024-05-10] MEDS: Pramipexole Di-HCl 1 MG Tablet PO (09:05)
[2024-05-10] MEDS: Pantoprazole Sodium 40 MG Tablet PO ×2 (09:06→20:51)
[2024-05-10] MEDS: Sertraline 100 MG Tablet PO (09:06)
[2024-05-10] MEDS: Torsemide 20 MG Tablet 60 MG PO (09:06)
[2024-05-10] MEDS: Aspirin E.C. 81 MG Tablet PO (09:06)
[2024-05-10] MEDS: Folic Acid/Vitamin B Comp W-C 1 Capsule 1 CAP PO (09:06)
[2024-05-10] MEDS: Nystatin Powder 15gm Bottle 1 APPLIC TOPICAL ×2 (09:07→20:50)
[2024-05-10] MEDS: APIXABAN 2.5 MG TABLET (WCH) PO ×2 (09:07→20:49)
[2024-05-10] MEDS: Carvedilol 6.25 MG Tablet PO ×2 (09:07→20:49)
[2024-05-10] MEDS: Ascorbic Acid 500 MG Tablet 1000 MG PO (09:08)
[2024-05-10] MEDS: Cholecalciferol (VIT D3) 25 MCG TABLET (1,000 UNITS) PO ×2 (09:08→20:51)
[2024-05-10] MEDS: Senna/Docusate Sodium 1 Tablet 2 TABLET PO (09:10)
[2024-05-10] MEDS: oxyCODONE 5 MG Tablet 10 MG PO ×2 (09:10→20:51)
[2024-05-10 12:04] LABS: Bedside Glucose 121 mg/dL (74-106)
[2024-05-10 14:44] VITALS: BP 136/49; PULSE 79; RESP 16; TEMP 36.2; O2SAT 100
[2024-05-10 16:52] LABS: Bedside Glucose 181 mg/dL (74-106)
[2024-05-10] MEDS: Insulin Lispro 100 UNIT/ML INSULN.PEN SC (17:07)
[2024-05-10 20:43] VITALS: BP 122/53; PULSE 81; RESP 18; TEMP 36.8; O2SAT 100
[2024-05-10] MEDS: traZODone 100 MG Tablet PO (20:49)
[2024-05-10] MEDS: Pramipexole Di-HCl 0.5 MG Tablet PO (20:50)
[2024-05-10] MEDS: Atorvastatin Calcium 40 MG Tablet PO (20:50)
[2024-05-10] MEDS: Gabapentin 100 MG Capsule 200 MG PO (20:51)
[2024-05-10 23:23] LABS: Bedside Glucose 157 mg/dL (74-106)
[2024-05-11] VITALS (17 sets, daily range): BP systolic 80–202; BP diastolic 38–68; PULSE 70–87; RESP 12–18; TEMP 36.3–37; O2SAT 94–100; BMI 36.3
[2024-05-11] MEDS: Levothyroxine 88 MCG Tablet PO (04:25)
[2024-05-11] MEDS: Acetaminophen 500 MG Tablet 1000 MG PO ×3 (04:25→21:52)
[2024-05-11] MEDS: oxyCODONE 5 MG Tablet 10 MG PO ×2 (04:26→22:00)
[2024-05-11 06:58] LABS: Absolute Lymphocyte Count 0.45 X10^3/uL (0.83-4.51); Absolute Neutrophil Count 3.3 X10^3/uL (2.0-7.7); Basophil# 0.01 X10^3/uL; Basophil% 0.2 % (0-1); Eosinophil# 0.14 X10^3/uL; Eosinophils% 3.2 % (0-5); Hematocrit 25.8 % (37-47); Hemoglobin 7.8 g/dL (12.0-15.0); Lymphocyte # 0.45 X10^3/ul (0.83-4.51); Lymphocyte % 10.4 % (19-41); Mean Corp Hgb Conc 30.2 g/dL (32-36); Mean Corpuscular Hgb 30.7 pg (27.0-32.0); Mean Corpuscular Volume 101.6 fL (81-99); Mean Platelet Vol. 11.8 fl (6.2-12.0); Monocyte# 0.33 X10^3/uL; Monocyte% 7.7 % (0-10); NRBC Flagged by Analyzer 0 % (0-5); Neutrophil # 3.34 X10^3/uL (2.7-7.7); Neutrophil % 77.6 % (47-70); POSITIVE COUNT YES; POSITIVE DIFFERENTIAL YES; POSITIVE MORPHOLOGY YES; Platelet Count 87 K/mm3 (150-450); RBC Distribution Width CV 18.5 % (11.6-14.6); RBC Distribution Width SD 67.9 fl (35.1-43.9); Red Blood Count 2.54 M/mm3 (4.2-5.4); White Blood Count 4.3 K/mm3 (4.4-11.0)
[2024-05-11 06:59] LABS: Bedside Glucose 133 mg/dL (74-106)
[2024-05-11 07:04] LABS: Differential Indicated SCAN CRITERIA MET
[2024-05-11] MEDS: Albuterol 2.5 MG/3 ML VIAL.NEB. INHALATION (07:22)
[2024-05-11 07:47] LABS: Anisocytosis 1+; Platelet Estimate MOD DEC (ADEQ)
--- NOTE | 2024-05-11 08:00 | PN.HOSP_ITS ---
Reason for Visit Reason for Visit: Diagnoses Other pancytopenia (05/06/24) Pathological fracture, left femur, initial encounter for fracture (05/06/24) Other specified disorders of bone, thigh (05/06/24) End stage renal disease (05/06/24) Fracture of unspecified part of neck of left femur, initial encounter for closed fracture (05/06/24) Dependence on renal dialysis (05/06/24) Subjective Subjective Patient seen having dialysis. Hemoglobin remained stable at 7.8. Awaiting insurance precertification prior to transfer to senior living [facility] Objective Data Objective Data Vital Signs: Vital Signs Temp Pulse Resp BP Pulse Ox O2 Del Method O2 Flow Rate 98.2 F 82 18 134/52 H 94 Nasal Cannula 2 05/11/24 04:24 05/11/24 07:24 05/11/24 07:24 05/11/24 04:24 05/11/24 07:24 05/11/24 07:24 05/11/24 07:24 Oxygen Flow Rate (L/min) 2 Oxygen Delivery Method Nasal Cannula Weight: 99.1 kg Body Mass Index (BMI) 36.3 Intake & Output: Intake and Output for Last 24 Hours 05/09/24 05/11/24 05/11/24 23:59 00:59 23:59 Intake Total 525 / 600 75 / 125 150 / 150 Balance 525 / 600 75 / 125 150 / 150 Lab / Micro Data 05/11/24 06:17 05/10/24 05:24 Labs: Laboratory Results - last 24 hr 05/10/24 11:38: POC Glucose 121 H 05/10/24 16:29: POC Glucose 181 H 05/10/24 20:47: POC Glucose 157 H 05/11/24 06:17: WBC 4.3 L, RBC 2.54 L, Hgb 7.8 L, Hct 25.8 L, MCV 101.6 H, MCH 30.7, MCHC 30.2 L, RDW Std Deviation 67.9 H, RDW Coeff of Taim 18.5 H, Plt Count 87 L, MPV 11.8, Immature Gran % (Auto) 0.900, Neut % (Auto) 77.6 H, Lymph % (Auto) 10.4 L, [place] % (Auto) 7.7, Eos % (Auto) 3.2, Baso % (Auto) 0.2, Absolute Neuts (auto) 3.3, Absolute Lymphs (auto) 0.45 L, Nucleated RBC % 0, Differential Comment COMMENT, Platelet Estimate MOD DEC, Anisocytosis 1+ 05/11/24 06:41: POC Glucose 133 H Physical Exam Narrative GENERAL: cooperative HEENT: Atraumatic; normocephalic EYES; Anicteric, Normal Conjunctiva NECK; supple, normal thyroid, RESPIRATORY: Diminished to auscultation CARDIOVASCULAR: Regular S1 S2, GI: soft, normoactive bowel sounds, : No Renal angle tenderness; EXTREMITIES: No edema, no clubbing, MUSCULOSKELETAL: no muscle wasting NEURO: Awake; no lateralizing signs. SKIN: No Rash PSYCH; Flat affect Assessment & Plan Assessment/Plan (1) Closed fracture of left hip: QUALIFIERS: Encounter type: initial encounter Qualified Code(s): S72.002A - Fracture of unspecified part of neck of left femur, initial encounter for closed fracture PLAN: Plan Patient is a 68-year-old lady presenting with sudden onset of left hip pain imaging studies obtained on admission did show Acute basicervical fracture of the proximal left femur. 1. Acute left hip fracture ? Secondary to pathological fracture. Imaging studies obtained on admission did show Acute left basicervical fracture of the proximal left femur with cephalic migration of the distal fracture fragment. Soft tissue swelling. Subsequent imaging studies with CT demonstrated multiple osteolytic lesions noted involving the femoral head and neck as well as the anterior and posterior aspect of the acetabulum. Patient has been admitted to regular nursing floor initial management including immobilization, pain medications and consultation placed to orthopedic surgery. Patient remains at moderate to high risk for surgical intervention given her significant comorbidities including diabetes mellitus type 2, end-stage renal disease on hemodialysis as well as history of renal transplant on the finding of suspected metastatic disease. Patient has however been optimized for surgical intervention. Risk involved in the procedure to be discussed by orthopedic surgery ? 05/07/2024; patient scheduled to undergo surgical intervention this afternoon ? 05/08/2024; Patient underwent Left hip hemiarthroplasty by Dr. Crump on 05/08/2024 ? 05/09/2024; postoperative day 2 following left hip hemiarthroplasty. Patient pain remains controlled. Plan is for patient to be discharged to senior living facility pending bed availability and insurance approval ? 05/11/2024; pain remains controlled currently rating her pain as 4 out of 10. 2. 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 Patient is currently on tacrolimus. Per patient recent repeat imaging studies demonstrated recurrence of cirrhotic lesions. Patient is followed by GI as outpatient 3. End-stage renal disease ? Patient is on hemodialysis Wednesdays and Fridays consult placed to Dr. Strickland with nephrology for dialysis orders ? Patient seen currently having dialysis 4. Hyperkalemia ? Secondary to patient end-stage renal disease patient hyperkalemia being treated through dialysis 5. Multiple osteolytic lesions involving the femoral head and neck as well as ACL and appendicular skeleton CT of the abdomen and pelvis obtained did show 1. Noncalcified left lower lobe micronodule. A subpleural nodule in the right lower lobe. Consider three-month follow-up for surveillance. 2. Scattered areas of ground-glass opacification throughout the right lung. Findings are most likely inflammatory. 3. Marked splenomegaly. 4. Bilateral nonobstructing nephrolithiasis. Small right renal cysts. Bilateral renal atrophy. 5. Status post cholecystectomy and hysterectomy. 6. Severe atherosclerotic visceral and aortoiliac calcific disease. 7. Fat containing left anterior wall ventral hernia. 8. Multiple osteolytic lesions in the axial and appendicular skeleton. Consider multiple myeloma. 9. Pathologic transcervical fracture of the left hip. 10. Diffuse inflammatory changes in the subcutaneous fat, abdomen and pelvis. 11. Other nonacute findings detailed above. ?Consult was placed to heme-onc. Also ordered urine light chain as well as protein electrophoresis ? 05/10/2024; patient 24-hour urine protein electrophoresis could not be performed given patient ESRD and significant anuria 4. Diabetes mellitus type 2 ? Patient is on scheduled Premeal insulin, given anticipated surgical intervention in a.m. patient short acting insulin held. Placed on Accu-Cheks before meals and at bedtime with sliding scale coverage 5. History of cervical and uterine cancer ? Status post abdominal hysterectomy 6. Findings of possible metastatic disease with pathological fracture ? Consult has been placed to oncology to guide workup 7. GERD ? Patient is on PPI 8. Diabetic polyneuropathy ? Patient is on gabapentin 9. Class II obesity with BMI of 36 ? Complicating care weight loss advised 10. Hypertension ? Blood pressure controlled, home medications continued with dose adjustment as needed 11. Dyslipidemia ?Patient is on statin therapy, continued at home dose 12. Coronary artery disease ? With previous PCI. Patient is on guideline directed medical therapy including statin therapy beta-blockers and aspirin 14. Pancytopenia ? Secondary to chronic liver disease monitoring indices with daily CBC with differential ? 05/10/2024 hemoglobin down to 7.2 plan is to transfuse if patient is deemed to be symptomatic or hemoglobin falls below 7 15. DVT prophylaxis ? Bilateral SCDs for now ? 05/08/2024 and order has been given for patient to be started on apixaban 2.5 mg p.o. twice daily 16. Physical deconditioning ? Requested for PT OT eval and social media editor to assist with discharge planning Time spent in the patient's overall evaluation,decision-making process, review of diagnostic data, adjustment of management, discussion with other providers, nursing nursing and ancillary staff involved in patient's care documentation, 36 minutes Charges/Coding Visit Charges Inpatient E&M: 96624 Subs Hosp L2
[2024-05-11] MEDS: Midodrine HCl 5 MG Tablet 10 MG PO (08:36)
[2024-05-11] MEDS: PureFlow B 2K Dialysis Soln 1 BAG 6 BAG PF (08:38)
[2024-05-11] MEDS: 0.9% Normal Saline 1,000 ML IV.SOLN. 1000 ML OPERA.SITE (08:38)
[2024-05-11 08:45] LABS: Bedside Glucose 100 mg/dL (74-106)
--- NOTE | 2024-05-11 09:18 | CASEMGMT ---
Discharge Planning Updates sent to [facility]. Pending acceptance. Julieta Marquis DC Planning Asst.
[2024-05-11 09:48] LABS: Anion Gap 15 (5-15); BUN 56 mg/dL (4-19); Calcium,Total 9.8 mg/dL (7.6-11.0); Carbon Dioxide 21.8 mmol/L (21.0-32.0); Chloride 95 mmol/L (98-108); Creatinine, Serum 7.01 mg/dL (0.70-1.20); EST Glomerular Filtration Rate 6 (>60); Glucose 106 mg/dL (70-99); Potassium 6.1 mmol/L (3.3-5.1); Sodium Level 132 mmol/L (133-145)
[2024-05-11] MEDS: Epoetin Alfa epbx 10,000 UNIT/ML 20000 UNIT IV (11:47)
[2024-05-11 12:04] LABS: Bedside Glucose 84 mg/dL (74-106)
--- NOTE | 2024-05-11 12:11 | CASEMGMT ---
Addendum entered by Julieta Marquis 05/11/24 15:09: [facility] declined. Julieta Marquis DC Planning Asst. Original Note: Discharge Planning Referral sent to [facility]. Julieta Marquis DC Planning Asst.
[2024-05-11] MEDS: Ascorbic Acid 500 MG Tablet 1000 MG PO (13:16)
[2024-05-11] MEDS: SEVELAMER CARBONATE 800 MG TABLET 2400 MG PO ×2 (13:16→17:04)
[2024-05-11] MEDS: Carvedilol 6.25 MG Tablet PO ×2 (13:16→21:50)
[2024-05-11] MEDS: Torsemide 20 MG Tablet 60 MG PO (13:17)
[2024-05-11] MEDS: Tacrolimus 0.5 MG Capsule PO ×2 (13:18→21:51)
[2024-05-11] MEDS: Pramipexole Di-HCl 1 MG Tablet PO (13:18)
[2024-05-11] MEDS: Pantoprazole Sodium 40 MG Tablet PO ×2 (13:18→21:51)
[2024-05-11] MEDS: Sertraline 100 MG Tablet PO (13:18)
[2024-05-11] MEDS: Nystatin Powder 15gm Bottle 1 APPLIC TOPICAL ×2 (13:18→21:51)
[2024-05-11] MEDS: Cholecalciferol (VIT D3) 25 MCG TABLET (1,000 UNITS) PO ×2 (13:18→21:52)
[2024-05-11] MEDS: Folic Acid/Vitamin B Comp W-C 1 Capsule 1 CAP PO (13:18)
[2024-05-11] MEDS: Aspirin E.C. 81 MG Tablet PO (13:19)
[2024-05-11] MEDS: APIXABAN 2.5 MG TABLET (WCH) PO ×2 (13:19→21:50)
[2024-05-11] MEDS: Calcium Carbonate 500 MG Tablet PO ×2 (13:19→17:04)
--- NOTE | 2024-05-11 13:54 | CASEMGMT ---
Social Work- SW met with pt to update on the status of referrals. SW updated that [facility] is unable to accept referral. [facility] cannot transport to [place], so family would need to transport or cover the costs of transport. [facility] also offered to check [facility] to see about chair availability, as they could potentially transport there. SW discussed other facilities that offer transport in the [place] area. Pt would like to discuss with , who did not answer the phone when SW called in pt room. SW remains available to follow and will attempt later to speak with again. MIKKI Cedeño
--- NOTE | 2024-05-11 16:38 | CASEMGMT ---
Social Work- SW followed up with pt who reports that she and spouse chose [facility], as [facility] were all unable to accept pt referrals. Pt selected [facility]. DCA notified of referral request. MIKKI Cedeño
--- NOTE | 2024-05-11 16:44 | CASEMGMT ---
Discharge Planning Referral sent to [facility]. Julieta Marquis DC Planning Asst.
[2024-05-11 17:08] LABS: Albumin 2.9 g/dL (2.9-4.4); Alpha-1-Globulins 0.3 g/dL (0.0-0.4); Alpha-2-Globulins 0.7 g/dL (0.4-1.0); Free Kappa Light Chains 127.2 mg/L (3.3-19.4); Free Lambda Light Chains 112.8 mg/L (5.7-26.3); Gamma Globulin 1.1 g/dL (0.4-1.8); Immunoglobulin A 185 mg/dL (87-352); Immunoglobulin G 1130 mg/dL (586-1602); Immunoglobulin M 82 mg/dL (26-217); PROEL- TOTAL PROTEIN 5.6 g/dL (6.0-8.5)
[2024-05-11 17:17] LABS: Bedside Glucose 113 mg/dL (74-106)
--- NOTE | 2024-05-11 19:07 | PCM.PN.REN ---
Subjective Subjective seen on HD today Objective Data Objective Data Vital Signs: Vital Signs Temp Pulse Resp BP Pulse Ox O2 Del Method O2 Flow Rate 98.5 F 87 16 120/45 L 98 Room Air 2 05/11/24 16:10 05/11/24 16:10 05/11/24 16:10 05/11/24 16:10 05/11/24 16:10 05/11/24 16:10 05/11/24 12:09 Oxygen Flow Rate (L/min) 2 Oxygen Delivery Method Room Air Weight: 99.1 kg Body Mass Index (BMI) 36.3 Intake & Output: Intake and Output for Last 24 Hours 05/09/24 05/11/24 05/11/24 23:59 00:59 23:59 Intake Total 525 / 600 75 / 125 150 / 150 Output Total 2260 / 2260 Balance 525 / 600 75 / 125 -2110 / -2110 Lab / Micro Data 05/11/24 06:17 05/11/24 06:17 Labs: Laboratory Results - last 24 hr 05/06/24 17:12: Total Protein (PEP) 5.6 L, Globulin 2.7, IgG 1130, IgA 185, IgM 82, Immunofixation Screen Comment, Albumin (YO) 2.9, Albumin/Globulin (YO) 1.1, Mkviu-4-Mvdpoqwks YO 0.3, Utiag-1-Bsilkcuze YO 0.7, Beta-Globulins (YO) 0.7, Gamma Globulins (YO) 1.1, YO M-Fransisco Not Observed, YO Comments Comment, Free [place] LC, Quant 127.2 H, Free Lambda LC, Quant 112.8 H, Free [place]/Lambda Ratio 1.13 05/10/24 20:47: POC Glucose 157 H 05/11/24 06:17: WBC 4.3 L, RBC 2.54 L, Hgb 7.8 L, Hct 25.8 L, MCV 101.6 H, MCH 30.7, MCHC 30.2 L, RDW Std Deviation 67.9 H, RDW Coeff of Tami 18.5 H, Plt Count 87 L, MPV 11.8, Immature Gran % (Auto) 0.900, Neut % (Auto) 77.6 H, Lymph % (Auto) 10.4 L, [place] % (Auto) 7.7, Eos % (Auto) 3.2, Baso % (Auto) 0.2, Absolute Neuts (auto) 3.3, Absolute Lymphs (auto) 0.45 L, Nucleated RBC % 0, Differential Comment COMMENT, Platelet Estimate MOD DEC, Anisocytosis 1+, Sodium 132 L, Potassium 6.1 H*, Chloride 95 L, Carbon Dioxide 21.8, Anion Gap 15, BUN 56 H, Creatinine 7.01 H, Estim Creat Clear Calc 9.20 L*, Est GFR (MDRD) Non-Af 6 L, BUN/Creatinine Ratio 8.0 L, Glucose 106 H, Calcium 9.8 05/11/24 06:41: POC Glucose 133 H 05/11/24 08:22: POC Glucose 100 05/11/24 11:33: POC Glucose 84 05/11/24 17:00: POC Glucose 113 H Physical Exam Narrative Alert awake oriented x 3 no obvious distress no pallor no icterus no JVD s1s2 no murmurs lungs clear abdomen soft no organomegaly no edema Assessment & Plan Assessment/Plan (1) End stage renal disease on dialysis: PLAN: On hemodialysis. Dialysis today, see orders. Hyperkalemia. Should improve with ongoing dialysis. Anemia. Newly discovered osteolytic lesions. Oncology note reviewed. Suspect myeloma. Workup pending.
[2024-05-11] MEDS: Gabapentin 100 MG Capsule 200 MG PO (21:49)
[2024-05-11] MEDS: traZODone 100 MG Tablet PO (21:50)
[2024-05-11] MEDS: Pramipexole Di-HCl 0.5 MG Tablet PO (21:51)
[2024-05-11] MEDS: Atorvastatin Calcium 40 MG Tablet PO (21:51)
[2024-05-11] MEDS: Senna/Docusate Sodium 1 Tablet 2 TABLET PO (22:00)
[2024-05-11 22:40] LABS: Bedside Glucose 138 mg/dL (74-106)
[2024-05-12 04:00] VITALS: BP 149/63; PULSE 86; RESP 14; TEMP 36.4; O2SAT 99
[2024-05-12 06:00] VITALS: BMI 37.1
[2024-05-12 06:45] LABS: Bedside Glucose 87 mg/dL (74-106)
[2024-05-12 07:49] VITALS: BP 123/46; PULSE 81; RESP 16; TEMP 36.7; O2SAT 93
[2024-05-12] MEDS: Levothyroxine 88 MCG Tablet PO (08:22)
[2024-05-12 08:23] LABS: Base Excess 2 mmol/L (-2 to +2); Bicarbonate 27.9 mmol/L (22-26); Blood Gas Specimen Type ART; Mode Not entered; O2 Delivery Device Not entered; PO2 56 mmHG (75-100); SITE R Radial; SO2 87 % (95-99); Total Carbon Dioxide 30 mmol/L; pCO2 50.5 mmHg (35-45); pH 7.35 (7.35-7.45)
[2024-05-12] MEDS: Acetaminophen 500 MG Tablet 1000 MG PO ×3 (08:23→21:51)
[2024-05-12] MEDS: Calcium Carbonate 500 MG Tablet PO ×3 (08:23→17:01)
[2024-05-12] MEDS: Aspirin E.C. 81 MG Tablet PO (08:23)
[2024-05-12 08:43] LABS: Hematocrit 25.4 % (37-47); Hemoglobin 7.6 g/dL (12.0-15.0); Mean Corp Hgb Conc 29.9 g/dL (32-36); Mean Corpuscular Hgb 30.3 pg (27.0-32.0); Mean Corpuscular Volume 101.2 fL (81-99); Mean Platelet Vol. 11.1 fl (6.2-12.0); POSITIVE COUNT YES; POSITIVE MORPHOLOGY YES; Platelet Count 93 K/mm3 (150-450); RBC Distribution Width CV 18.5 % (11.6-14.6); RBC Distribution Width SD 68.4 fl (35.1-43.9); Red Blood Count 2.51 M/mm3 (4.2-5.4); White Blood Count 3.7 K/mm3 (4.4-11.0)
[2024-05-12] MEDS: Pramipexole Di-HCl 1 MG Tablet PO (08:52)
[2024-05-12] MEDS: Nystatin Powder 15gm Bottle 1 APPLIC TOPICAL ×2 (08:52→21:52)
[2024-05-12] MEDS: Ascorbic Acid 500 MG Tablet 1000 MG PO (08:52)
[2024-05-12] MEDS: Pantoprazole Sodium 40 MG Tablet PO ×2 (08:52→21:52)
[2024-05-12] MEDS: Torsemide 20 MG Tablet 60 MG PO (08:52)
[2024-05-12] MEDS: Folic Acid/Vitamin B Comp W-C 1 Capsule 1 CAP PO (08:52)
[2024-05-12] MEDS: Tacrolimus 0.5 MG Capsule PO ×2 (08:52→21:51)
[2024-05-12] MEDS: Carvedilol 6.25 MG Tablet PO ×2 (08:52→21:51)
[2024-05-12] MEDS: APIXABAN 2.5 MG TABLET (WCH) PO ×2 (08:52→21:52)
[2024-05-12] MEDS: Cholecalciferol (VIT D3) 25 MCG TABLET (1,000 UNITS) PO ×2 (08:53→21:51)
[2024-05-12] MEDS: Sertraline 100 MG Tablet PO (08:53)
[2024-05-12 09:13] LABS: Scan Indicated on CBC? Y/N YES- FLAGS NOTED
--- NOTE | 2024-05-12 09:14 | CASEMGMT ---
[facility] accepted and will submit for precert. SW updated. Julieta Marquis DC Planning Asst.
[2024-05-12 09:21] LABS: Anion Gap 12 (5-15); BUN 42 mg/dL (4-19); BUN/Creat Ratio 7.9 RATIO (10-20); Calcium,Total 9.8 mg/dL (7.6-11.0); Carbon Dioxide 23.1 mmol/L (21.0-32.0); Chloride 96 mmol/L (98-108); Creatinine, Serum 5.31 mg/dL (0.70-1.20); EST Glomerular Filtration Rate 8 (>60); Estimated Creatinine Clearance 12.28 ml/min (50-250); Glucose 83 mg/dL (70-99); Potassium 5.2 mmol/L (3.3-5.1); Sodium Level 131 mmol/L (133-145)
--- NOTE | 2024-05-12 10:45 | PCM.PN.REN ---
Subjective Subjective Resting in bed, no overnight events. No complaints. Objective Data Objective Data Vital Signs: Vital Signs Temp Pulse Resp BP Pulse Ox O2 Del Method O2 Flow Rate 98.0 F 81 16 123/46 H 93 Nasal Cannula 2 05/12/24 07:49 05/12/24 07:49 05/12/24 07:49 05/12/24 07:49 05/12/24 07:49 05/12/24 10:03 05/12/24 10:03 Oxygen Flow Rate (L/min) 2 Oxygen Delivery Method Nasal Cannula Weight: 101.1 kg Body Mass Index (BMI) 37.1 Intake & Output: Intake and Output for Last 24 Hours 05/11/24 05/11/24 05/12/24 00:59 23:59 23:59 Intake Total 75 / 125 150 / 150 Output Total 2260 / 2260 0 / 0 Balance 75 / 125 -2110 / -2110 0 / 0 Lab / Micro Data 05/12/24 08:32 05/12/24 08:32 Labs: Laboratory Results - last 24 hr 05/06/24 17:12: Total Protein (PEP) 5.6 L, Globulin 2.7, IgG 1130, IgA 185, IgM 82, Immunofixation Screen Comment, Albumin (YO) 2.9, Albumin/Globulin (YO) 1.1, Irlsj-2-Extipbdsj YO 0.3, Sfmnq-0-Atgjiqvyd YO 0.7, Beta-Globulins (YO) 0.7, Gamma Globulins (YO) 1.1, YO M-Fransisco Not Observed, YO Comments Comment, Free [place] LC, Quant 127.2 H, Free Lambda LC, Quant 112.8 H, Free [place]/Lambda Ratio 1.13 05/11/24 11:33: POC Glucose 84 05/11/24 17:00: POC Glucose 113 H 05/11/24 21:38: POC Glucose 138 H 05/12/24 06:27: POC Glucose 87 05/12/24 08:32: WBC 3.7 L, RBC 2.51 L, Hgb 7.6 L, Hct 25.4 L, MCV 101.2 H, MCH 30.3, MCHC 29.9 L, RDW Std Deviation 68.4 H, RDW Coeff of Tami 18.5 H, Plt Count 93 L, MPV 11.1, Differential Comment , Sodium 131 L, Potassium 5.2 H, Chloride 96 L, Carbon Dioxide 23.1, Anion Gap 12, BUN 42 H, Creatinine 5.31 H, Estim Creat Clear Calc 12.28 L, Est GFR (MDRD) Non-Af 8 L, BUN/Creatinine Ratio 7.9 L, Glucose 83, Calcium 9.8 ABG Data ABG results: ABG 05/12/24 08:20 Specimen Type ART Sample Site R Radial pH 7.35 Bicarbonate Actual 27.9 H Total CO2 30 Base Excess 2 O2 Saturation 87 L O2 % 21.0 ABG pCO2 50.5 H ABG pO2 56 L O2 Delivery Device Not entered Vent Mode Not entered Physical Exam Narrative Alert awake oriented x 3 no obvious distress s1s2 no murmurs lungs clear abdomen soft no pitting edema AV fistula positive thrill and bruit Assessment & Plan Assessment/Plan (1) End stage renal disease on dialysis: PLAN: On hemodialysis MWF at [facility]. Patient dialyzed yesterday, no acute indication for [facility] today, next HD tomorrow on 2k bath. Hyperkalemia. Today potassium 5.2, reviewed with patient potassium rich foods to limit and/or avoid. Anemia. Newly discovered osteolytic lesions. Oncology note reviewed. Suspect myeloma. Workup pending. Hgb 7.6. Left hip fracture s/p repair 05/07/2024 Disposition; discharge plans in progress, possibly to be discharged to the [facility] with transportation to and from dialysis Saturday.
[2024-05-12 11:29] LABS: Bedside Glucose 95 mg/dL (74-106)
--- NOTE | 2024-05-12 11:54 | CT_ITS ---
EXAM: BRAIN/HEAD WITHOUT CONTRAST CLINICAL HISTORY: AMS AND WORSENING DIFFICULTY W/ MOVEMENT. History of subdural hematoma. COMPARISON: Comparison is made with prior study dated September 26, 2023. TECHNIQUE: Multiple axial tomographic images were obtained without intravenous contrast administration. Coronal and sagittal reconstruction was obtained as well. FINDINGS: Mild degree of cerebral atrophy. No evidence of subdural hematoma. No mass effect. Tiny calcifications are seen in the basal ganglia bilaterally. This is within normal limits for the patient's age. Partial opacification along the inferior aspect of the left maxillary sinus. Hyperostosis frontalis interna. CT/Brain/Head without Contrast IMPRESSION: Cerebral atrophy. No acute abnormality is seen. Reading Location: [facility]
--- NOTE | 2024-05-12 12:14 | PCM.PN.HOSP ---
Reason for Visit Reason for Visit: Diagnoses Other pancytopenia (05/06/24) Pathological fracture, left femur, initial encounter for fracture (05/06/24) Other specified disorders of bone, thigh (05/06/24) End stage renal disease (05/06/24) Fracture of unspecified part of neck of left femur, initial encounter for closed fracture (05/06/24) Dependence on renal dialysis (05/06/24) Subjective Subjective Saw patient at bedside this morning. Patient was somewhat fatigued appearing and had mild cognitive slowing noted but otherwise was sitting back comfortably in bed and in no acute distress. She denied any acute pain or discomfort this morning. No other new concerns at this time. Notably, nursing had concern for altered mentation both overnight and later this morning. ABG was obtained this morning and was unremarkable. CT head without contrast was done and was also unremarkable. Patient has been on oxycodone 10 mg but is been getting this regularly while here without decreased mentation. Patient reevaluated this afternoon with still mild cognitive slowing but otherwise with appropriate mentation. Objective Data Objective Data Vital Signs: Vital Signs Temp Pulse Resp BP Pulse Ox O2 Del Method O2 Flow Rate 98.0 F 81 16 123/46 H 93 Nasal Cannula 2 05/12/24 07:49 05/12/24 07:49 05/12/24 07:49 05/12/24 07:49 05/12/24 07:49 05/12/24 10:03 05/12/24 10:03 Oxygen Flow Rate (L/min) 2 Oxygen Delivery Method Nasal Cannula Weight: 101.1 kg Body Mass Index (BMI) 37.1 Intake & Output: Intake and Output for Last 24 Hours 05/11/24 05/11/24 05/12/24 00:59 23:59 23:59 Intake Total 75 / 125 150 / 150 Output Total 2260 / 2260 0 / 0 Balance 75 / 125 -2110 / -2110 0 / 0 Lab / Micro Data 05/12/24 08:32 05/12/24 08:32 Labs: Laboratory Results - last 24 hr 05/06/24 17:12: Total Protein (PEP) 5.6 L, Globulin 2.7, IgG 1130, IgA 185, IgM 82, Immunofixation Screen Comment, Albumin (YO) 2.9, Albumin/Globulin (YO) 1.1, Pxqfu-1-Gvkffomku YO 0.3, Ifncw-0-Qbecziryx YO 0.7, Beta-Globulins (YO) 0.7, Gamma Globulins (YO) 1.1, YO M-Fransisco Not Observed, YO Comments Comment, Free [place] LC, Quant 127.2 H, Free [place]ambda LC, Quant 112.8 H, Free [place]/Lambda Ratio 1.13 05/11/24 17:00: POC Glucose 113 H 05/11/24 21:38: POC Glucose 138 H 05/12/24 06:27: POC Glucose 87 05/12/24 08:32: WBC 3.7 L, RBC 2.51 L, Hgb 7.6 L, Hct 25.4 L, MCV 101.2 H, MCH 30.3, MCHC 29.9 L, RDW Std Deviation 68.4 H, RDW Coeff of Tami 18.5 H, Plt Count 93 L, MPV 11.1, Differential Comment , Sodium 131 L, Potassium 5.2 H, Chloride 96 L, Carbon Dioxide 23.1, Anion Gap 12, BUN 42 H, Creatinine 5.31 H, Estim Creat Clear Calc 12.28 L, Est GFR (MDRD) Non-Af 8 L, BUN/Creatinine Ratio 7.9 L, Glucose 83, Calcium 9.8 05/12/24 11:05: POC Glucose 95 ABG Data ABG results: ABG 05/12/24 08:20 Specimen Type ART Sample Site R Radial pH 7.35 Bicarbonate Actual 27.9 H Total CO2 30 Base Excess 2 O2 Saturation 87 L O2 % 21.0 ABG pCO2 50.5 H ABG pO2 56 L O2 Delivery Device Not entered Vent Mode Not entered Physical Exam Const alert and no apparent distress Constitutional Narrative: Elderly female, class II obesity, mildly fatigued appearing and mild cognitive slowing noted, otherwise sitting back comfortably in bed and in no acute distress. General Appearance: cooperative and comfortable HEENT normocephalic, head/scalp atraumatic, hearing grossly normal bilaterally, nasal mucous membranes and turbinates normal and moist oral mucous membranes Eyes PERRL, EOMs intact bilaterally and conjunctivae normal Neck full ROM Chest inspection of chest normal Resp normal respiratory effort, normal air movement, no use of accessory muscles and clear to auscultation bilaterally Cardio regular rate, regular rhythm, no murmurs and peripheral pulses 2+ throughout GI normal to inspection, nondistended, normoactive bowel sounds, soft to palpation, non-tender and non-distended Back/Spine normal ROM Extremity Extremity Narrative: Left hip with dressing in place, stable. Neuro moves all extremities and no focal motor deficits Psych mental status grossly normal Psych Narrative: Flat affect. Assessment & Plan Assessment/Plan (1) Pathologic fracture of femoral neck: QUALIFIERS: Encounter type: initial encounter Laterality: left Qualified Code(s): M84.452A - Pathological fracture, left femur, initial encounter for fracture PLAN: Plan Patient is a 68-year-old female who presented [facility] ED on 05/06/2024 with left hip pain. 1. Left hip fracture with acute on chronic debility ? Orthopedic surgery followed. Presented with left hip pain after twisting motion, did not have a fall. Hip x-ray showed an acute left basicervical fracture of the proximal left femur. Presumed pathologic fracture in setting of possible multiple myeloma as noted below. S/p left hip hemiarthroplasty on 05/[address] Crump. Tolerated procedure well, no intraoperative complications. Pain control with scheduled Tylenol and oxycodone as needed. Low-dose Eliquis for DVT prophylaxis. PT/OT/case management following. Planning for SNF on discharge; suspect patient will be medically ready on 04/15, awaiting bed placement. 2. Concern for multiple myeloma with osteolytic lesions ? Oncology evaluated. Imaging on admit showed multiple osteolytic lesions in the axial and appendicular skeleton along with a pathologic transcervical fracture of the left hip. Oncology noted that presentation is most concerning for multiple myeloma. Serum protein electrophoresis, immune fixation and serum free light chain studies ordered and results are pending. No further inpatient needs, will need close outpatient follow-up on discharge. 3. ESRD ? Nephrology following. Continue MWF HD while here per nephrology. 4. 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 Continue home tacrolimus. No inpatient needs, continue outpatient follow-up with GI. 5. Pancytopenia ? Suspect multifactorial from kidney disease, cirrhosis and possible multiple myeloma. Most recent labs with hemoglobin 7.6, WBC count 3.7, platelet count 93 and this is stable from previous days. Chronic medical conditions: ? Class II obesity: BMI 37 on admit. Complicates hospital course, care and prognosis. ? Type 2 diabetes mellitus with neuropathy: Continue treatment with sliding scale insulin with meals while inpatient. Continue gabapentin at night. ? History of CAD with stenting, hypertension, hyperlipidemia: Continue home aspirin, statin, Coreg. ? GERD: Continue home PPI. ? Hypothyroidism: Continue home Synthroid. ? Anxiety/depression: Continue home sertraline. ? Restless leg syndrome: Continue home ropinirole. ? History of cervical and uterine cancer s/p abdominal hysterectomy DVT prophylaxis: SCDs CODE STATUS: Full code, verified Expected disposition: SNF, 1 to 2 days Total clinical time spent by myself addressing the patient's medical issues, reviewing all the data, and collaborating with patient's care team: 35 minutes. Charges/Coding Visit Charges Inpatient E&M: 60781 Subs Hosp L2
[2024-05-12] MEDS: SEVELAMER CARBONATE 800 MG TABLET 2400 MG PO ×2 (12:44→17:01)
--- NOTE | 2024-05-12 12:59 | CASEMGMT ---
Social Work- SW met with pt to advise that [facility] [place] was able to accept and transport to dialysis. Pt understanding that precert is pending and discharge will occur when precert is obtained and pt is medically ready. Pt asked SW to call and update spouse. SW called pt spouse and provided information and updates. Physician updated. SW remains available to follow. Plan: [facility]; precert pending MIKKI Cedeño
[2024-05-12 13:46] VITALS: BP 125/47; PULSE 81; RESP 16; TEMP 36.9; O2SAT 96
[2024-05-12 13:50] VITALS: PULSE 80
--- NOTE | 2024-05-12 15:08 | CASEMGMT ---
[facility] has obtained auth to admit. SW updated. Julieta Marquis DC Planning Asst.
--- NOTE | 2024-05-12 16:00 | CASEMGMT ---
Spoke with Shauna at [facility]. She is aware that pt will be dialyzed at [facility] tomorrow and will be going [facility] after. SW aware pt chair time at [facility] is M/W/F at 0630.
[2024-05-12 16:07] LABS: Bedside Glucose 114 mg/dL (74-106)
[2024-05-12 19:57] VITALS: BP 151/54; PULSE 78; RESP 18; TEMP 36.3; O2SAT 100
[2024-05-12] MEDS: Gabapentin 100 MG Capsule 200 MG PO (21:51)
[2024-05-12] MEDS: Atorvastatin Calcium 40 MG Tablet PO (21:51)
[2024-05-12] MEDS: traZODone 100 MG Tablet PO (21:52)
[2024-05-12] MEDS: Pramipexole Di-HCl 0.5 MG Tablet PO (21:53)
[2024-05-13] VITALS (13 sets, daily range): BP systolic 104–276; BP diastolic 39–91; PULSE 70–92; RESP 12–18; TEMP 36.3–36.6; O2SAT 97–100; BMI 37.0; BMI 36.1
[2024-05-13 00:20] LABS: Bedside Glucose 103 mg/dL (74-106)
[2024-05-13] MEDS: Acetaminophen 500 MG Tablet 1000 MG PO ×2 (06:37→13:07)
[2024-05-13] MEDS: Levothyroxine 88 MCG Tablet PO (06:37)
[2024-05-13 07:08] LABS: Bedside Glucose 94 mg/dL (74-106)
[2024-05-13 07:17] LABS: Hematocrit 25.9 % (37-47); Hemoglobin 7.7 g/dL (12.0-15.0); Mean Corp Hgb Conc 29.7 g/dL (32-36); Mean Corpuscular Hgb 30.2 pg (27.0-32.0); Mean Corpuscular Volume 101.6 fL (81-99); Mean Platelet Vol. 11.5 fl (6.2-12.0); POSITIVE MORPHOLOGY YES; Platelet Count 102 K/mm3 (150-450); RBC Distribution Width CV 18.5 % (11.6-14.6); RBC Distribution Width SD 70.1 fl (35.1-43.9); Red Blood Count 2.55 M/mm3 (4.2-5.4); White Blood Count 4.1 K/mm3 (4.4-11.0)
[2024-05-13 07:26] LABS: Scan Indicated on CBC? Y/N YES- FLAGS NOTED
[2024-05-13 08:16] LABS: Anion Gap 13 (5-15); BUN 55 mg/dL (4-19); BUN/Creat Ratio 8.4 RATIO (10-20); Calcium,Total 10.1 mg/dL (7.6-11.0); Carbon Dioxide 23.6 mmol/L (21.0-32.0); Chloride 98 mmol/L (98-108); Creatinine, Serum 6.53 mg/dL (0.70-1.20); EST Glomerular Filtration Rate 7 (>60); Estimated Creatinine Clearance 9.97 ml/min (50-250); Glucose 88 mg/dL (70-99); Potassium 5.6 mmol/L (3.3-5.1); Sodium Level 134 mmol/L (133-145)
[2024-05-13] MEDS: 0.9% Normal Saline 1,000 ML IV.SOLN. 1000 ML OPERA.SITE (09:04)
[2024-05-13] MEDS: Epoetin Alfa epbx 10,000 UNIT/ML 20000 UNIT IV (09:05)
[2024-05-13] MEDS: PureFlow B 2K Dialysis Soln 1 BAG 6 BAG PF (09:06)
--- NOTE | 2024-05-13 10:53 | CASEMGMT ---
Social Work- SW met with pt to discuss transfer to [facility] today. Pt agreeable and would like spouse updated with discharge times when available. SW remains available to follow. Plan: [facility]; skilled level of care MIKKI Cedeño
[2024-05-13] MEDS: Midodrine HCl 5 MG Tablet 10 MG PO (11:09)
[2024-05-13 11:26] LABS: Bedside Glucose 170 mg/dL (74-106)
--- NOTE | 2024-05-13 11:38 | TREXTCAR_ITS ---
Diet Diet Order/Speech Therapy: 05/12/24 16:04 Diet: Renal - General Food consistency:: Regular Liquid Consistency:: Regular/Thin Dietary Modifications:: Potassium Restricted Routine Orders/Code Status Routine Lab Work: CBC and BMP Code Status: Full Code DC O2, CPAP, BIPAP needs Home O2 Discharge instructions: No Wound(s) LT HIP: Wound Type: Surgical Incision coccyx: Wound Type: Pressure Injury Dressing Change: applied foam dressing Therapies Weight Bearing: Weight bearing as tolerated Extremity Affected:: Left Lower Problem/Diagnosis (1) Pathologic fracture of femoral neck: Status: Acute Code(s): M84.453A - Pathological fracture, unspecified femur, initial encounter for fracture Allergies/Procedures Done in Hospital Allergies amlodipine (From Norvasc) Allergy (Severe, Verified 05/01/24 02:28) Hives ampicillin sodium (From Unasyn) Allergy (Severe, Verified 05/01/24 02:28) Hives buspirone HCl (From BuSpar) Allergy (Severe, Verified 05/01/24 02:28) Hives cefadroxil (From Duricef) Allergy (Severe, Verified 05/01/24 02:28) Hives lisinopril Allergy (Severe, Verified 05/01/24 02:28) Swelling naproxen Allergy (Severe, Verified 05/01/24 02:28) Hives niacin (From Niaspan Extended-Release) Allergy (Severe, Verified 05/01/24 02:28) Hives sulbactam sodium (From Unasyn) Allergy (Severe, Verified 05/01/24 02:28) Hives Sulfa (Sulfonamide Antibiotics) Allergy (Severe, Verified 05/01/24 02:28) Hives tramadol Allergy (Mild, Verified 05/01/24 02:28) Nausea cephalexin (From Keflex) Allergy (Verified 05/01/24 02:28) Vomiting omeprazole Adverse Reaction (Severe, Verified 05/01/24 02:28) Other stage 3 kidney failure UNABLE TO TAKE DUE TO LIVER TRANSPLANT losartan Adverse Reaction (Verified 05/01/24 02:28) Swelling Procedures: - (Left hip hemiarthroplasty) Type of Care/Length of Stay Estimated LOS: Convalescent Care Less Than 30 days Type of Care Needed: Skilled Rehab Potential: Fair Prognosis: Fair Additional Orders/Day of Discharge Day of Discharge: 05/13/24 Dietary and Speech Recommendations Dietitian Recommendations/Changes: Adjust to renal general diet with potassium restriction. Pt refuses ONS at this time. Consult PROCESSING TECHNICIAN d/t pt reports choking on cheeseburger today. Will monitor weight trends. Discharge Plan Admission Admit Date/Time: 05/06/24 10:42 Attending Provider: Owen Armenta Primary Care Provider: Velia Archuleta Consulting Providers: Barrett Strickland; Maida Mcintosh; Owen Crump; Jag Taylor; Boni Clifton Discharge Orders/Prescriptions Prescriptions: New Eliquis 5 mg Tablet 2.5 mg PO BID 21 Days Qty: 0 0RF Continued bisacodyl [Dulcolax (bisacodyl)] 10 mg suppository 10 mg [place] DAILY PRN (Reason: constipation) Qty: 30 0RF famotidine 20 mg tablet 20 mg PO QDAY dicyclomine 10 mg capsule 10 mg PO DAILY PRN (Reason: abdominal discomfort) Rx Instructions: once a day for pain insulin lispro [Humalog KwikPen Insulin] 100 unit/mL insulin pen 10 unit subcut TIDCM Patient Comments: TAKES 14U IF NEEDS atorvastatin 40 mg tablet 40 mg PO QHS Qty: 30 2RF ascorbic acid (vitamin C) 500 MG tablet,chewable 1,000 mg PO DAILY Patient Comments: supplement cholecalciferol (vitamin D3) 1,000 UNIT tablet 1,000 unit PO BID Patient Comments: bone health ropinirole 1 mg tablet 1 mg PO DAILY Rx Instructions: 2MG IN AM AND 1MG PM vitamin B complex 1 EACH tablet 1 tablet PO DAILY sevelamer carbonate [Renvela] 800 MG tablet 2,400 mg PO TIDCM nitroglycerin 0.4 mg Tablet, Sublingual 0.4 mg sublingual Q5M PRN (Reason: Cardiac/Chest Pain) Qty: 30 0RF biotin 1 mg Capsule 1 mg PO BID albuterol sulfate 1 PUFF inhaler 2 puff IH Q4H PRN PRN (Reason: Sob &/Or Wheezing) 30 Days Qty: 8.6 0RF Otezla 30 mg tablet 30 mg PO DAILY midodrine 10 mg tablet 10 mg PO MOWEFR PRN (Reason: hypotension) Patient Comments: ON HOLD FOR LAST 2-3 WEEKS Rx Instructions: afternoon levothyroxine 88 mcg tablet 88 mcg PO DAILY trazodone 100 mg tablet 100 mg PO QHS aspirin [Adult Aspirin Regimen] 81 mg tablet,delayed release (DR/EC) 81 mg PO DAILY carvedilol 12.5 mg tablet 6.25 mg PO BID pantoprazole 40 mg tablet,delayed release (DR/EC) 40 mg PO BID nystatin [Nyamyc] 100,000 unit/gram Powder 1 applic topical BID PRN PRN (Reason: SKIN) Protocol: *Topical Application Instructions APPLICATION INSTRUCTIONS: apply to abdominal folds vancomycin 2 gram recon soln 1 g IV QMWF 38 Days Rx Instructions: stop date 01/03/24. Vancomycin 2gm IV dosed with HD on Sat-Sat-Sat. Weekly bmp, cbc, LFT, vanc trough, and esr. Fax to [phone]. torsemide 20 mg tablet 60 mg PO .QAM Patient Comments: [NO ORIGINAL SIG] ropinirole 2 mg tablet 2 mg PO DAILY Rx Instructions: 2MG IN AM AND 1MG PM Danae-Chet 0.8 mg tablet 1 tab PO DAILY gabapentin 100 mg capsule 200 mg PO QHS tacrolimus 0.5 mg capsule 0.5 mg PO Q12H Patient Comments: [NO ORIGINAL SIG] sertraline 100 mg tablet 100 mg PO DAILY Belsomra 10 mg tablet 10 mg PO QHS Discontinued doxycycline monohydrate 100 mg capsule 100 mg PO BID Referrals / Follow Up: Velia Archuleta MD [Primary Care Provider] - Owen Crump DO [Med Staff - Active Staff] - Within 1 Week Disposition Disposition (needs filled in before D/C Order can be placed): Intermediate Facility (1) Pathologic fracture of femoral neck Qualifiers: Encounter type: initial encounter Laterality: left Qualified Code(s): M84.452A - Pathological fracture, left femur, initial encounter for fracture
--- NOTE | 2024-05-13 12:08 | PHA.DC.MR.R ---
Pharmacy [place] Med Reconciliation Pharmacy Service has performed discharge medication reconciliation for this patient. The patient's discharge medication list was reviewed for discrepancies and discrepancies were resolved. Medications at Discharge Home Medications ascorbic acid (vitamin C) 500 mg chewable tablet 1,000 mg PO DAILY supplement 02/20/15 cholecalciferol (vitamin D3) 25 mcg (1,000 unit) tablet 1,000 unit PO BID supplement 02/20/15 vitamin B complex 1 tablet PO DAILY SUPPLEMENT 09/10/19 ropinirole 1 mg tablet 1 mg PO DAILY restless legs 05/23/20 sevelamer carbonate 800 mg tablet (Renvela) 2,400 mg PO TIDCM kidney disease 06/10/20 nitroglycerin 0.4 mg sublingual tablet 0.4 mg sublingual Q5M PRN Cardiac/Chest Pain #30 tabs 04/29/21 biotin 1 mg capsule 1 mg PO BID supplement 08/11/21 albuterol sulfate 90 mcg/actuation aerosol inhaler 2 puff IH Q4H PRN PRN Sob &/Or Wheezing 30 days #8.6 grams 10/25/21 apremilast 30 mg tablet (Otezla) 30 mg PO DAILY 09/08/22 levothyroxine 88 mcg tablet 88 mcg PO DAILY 12/31/22 trazodone 100 mg tablet 100 mg PO QHS 12/31/22 aspirin 81 mg tablet,delayed release (Adult Aspirin Regimen) 81 mg PO DAILY 01/28/23 bisacodyl 10 mg rectal suppository (Dulcolax (bisacodyl)) 10 mg [place] DAILY PRN constipation #30 ea 02/12/23 midodrine 10 mg tablet 10 mg PO MOWEFR PRN hypotension 04/15/23 carvedilol 12.5 mg tablet 6.25 mg PO BID 07/01/23 nystatin 100,000 unit/gram topical powder (Nyamyc) 1 applic topical BID PRN PRN SKIN 07/01/23 pantoprazole 40 mg tablet,delayed release 40 mg PO BID 07/01/23 atorvastatin 40 mg tablet 40 mg PO QHS #30 tabs 01/14/24 dicyclomine 10 mg capsule 10 mg PO DAILY PRN abdominal discomfort 01/14/24 famotidine 20 mg tablet 20 mg PO QDAY 01/14/24 insulin lispro 100 unit/mL subcutaneous pen (Humalog KwikPen (U-100) Insulin) 10 unit subcut TIDCM 01/14/24 gabapentin 100 mg capsule 200 mg PO QHS 05/06/24 ropinirole 2 mg tablet 2 mg PO DAILY 05/06/24 sertraline 100 mg tablet 100 mg PO DAILY 05/06/24 suvorexant 10 mg tablet (Belsomra) 10 mg PO QHS 05/06/24 tacrolimus 0.5 mg capsule, immediate-release 0.5 mg PO Q12H 05/06/24 torsemide 20 mg tablet 60 mg PO .QAM 05/06/24 vitamin B complex-vitamin C-folic acid 0.8 mg tablet (Danae-Chet) 1 tab PO DAILY 05/06/24 apixaban 5 mg tablet (Eliquis) 2.5 mg (1/2 x 5 mg) PO BID 21 days #0 tabs 05/13/24
--- NOTE | 2024-05-13 12:19 | CASEMGMT ---
Social Work Precert has been obtained.? Physician updated and pt is ready for discharge today.? 7000 convalescent form completed in [facility]. SW met with pt and they are agreeable to discharge plan as stated above.?[facility] notified of discharge readiness. Final discharge arrangements and notification to patient/family as per discharge funeral planning counselor.? Disposition:[facility], skilled level of care under convalescent stay. MIKKI Cedeño
--- NOTE | 2024-05-13 12:36 | CASEMGMT ---
Discharge Planning Discharge orders and transport time sent to [facility] Physicians will transport pt by cot at 1:30p. Nursing, SW, pt and her updated. Julieta Marquis DC Planning Asst.
[2024-05-13] MEDS: Aspirin E.C. 81 MG Tablet PO (13:02)
[2024-05-13] MEDS: Carvedilol 6.25 MG Tablet PO (13:03)
[2024-05-13] MEDS: Torsemide 20 MG Tablet 60 MG PO (13:03)
[2024-05-13] MEDS: Folic Acid/Vitamin B Comp W-C 1 Capsule 1 CAP PO (13:04)
[2024-05-13] MEDS: APIXABAN 2.5 MG TABLET (WCH) PO (13:04)
[2024-05-13] MEDS: Pramipexole Di-HCl 1 MG Tablet PO (13:04)
[2024-05-13] MEDS: Ascorbic Acid 500 MG Tablet 1000 MG PO (13:05)
[2024-05-13] MEDS: Tacrolimus 0.5 MG Capsule PO (13:05)
[2024-05-13] MEDS: Pantoprazole Sodium 40 MG Tablet PO (13:05)
[2024-05-13] MEDS: Cholecalciferol (VIT D3) 25 MCG TABLET (1,000 UNITS) PO (13:05)
[2024-05-13] MEDS: Insulin Lispro 100 UNIT/ML INSULN.PEN SC (13:06)
[2024-05-13] MEDS: Sertraline 100 MG Tablet PO (13:06)
[2024-05-13] MEDS: Calcium Carbonate 500 MG Tablet PO (13:07)
[2024-05-13] MEDS: SEVELAMER CARBONATE 800 MG TABLET 2400 MG PO (13:07)
[2024-05-13] MEDS: oxyCODONE 5 MG Tablet PO (13:07)
--- NOTE | 2024-05-13 15:28 | PCM.DC.SUM ---
Providers Date of Admission: 05/06/24 Primary Care Physician: Dr. Velia Archuleta MD Consultations 05/06/24 14:07 Consult: Nephrology Routine Consulting Provider: Barrett Strickland Reason for Consult: ESRd EMERGENT Consult: No MD Notified: Yes Date Notified: 05/06/24 Time Notified: 12:59 Method of Notification: Text Consult: Orthopedics Routine Consulting Provider: Owen Crump Reason for Consult: Left femur fracture EMERGENT Consult: Yes MD Notified: Yes Date Notified: 05/06/24 Time Notified: 13:00 Method of Notification: ED Physician Initiated 05/06/24 15:12 Consult: Oncology/Hematology Routine Consulting Provider: Maida Mcintosh Reason for Consult: Suspected metastatic disease with pathological fracture involving the left EMERGENT Consult: No MD Notified: Yes Date Notified: 05/06/24 Time Notified: 15:12 Method of Notification: Answering Service Reason For Visit: HIP FRACTURE Diagnosis Discharge Diagnosis (1) Pathologic fracture of femoral neck: Status: Acute Code(s): M84.453A - Pathological fracture, unspecified femur, initial encounter for fracture Qualifiers: Encounter type: initial encounter Laterality: left Qualified Code(s): M84.452A - Pathological fracture, left femur, initial encounter for fracture Medications at Discharge Home Medications ascorbic acid (vitamin C) 500 mg chewable tablet 1,000 mg PO DAILY supplement 02/20/15 cholecalciferol (vitamin D3) 25 mcg (1,000 unit) tablet 1,000 unit PO BID supplement 02/20/15 vitamin B complex 1 tablet PO DAILY SUPPLEMENT 09/10/19 ropinirole 1 mg tablet 1 mg PO DAILY restless legs 05/23/20 sevelamer carbonate 800 mg tablet (Renvela) 2,400 mg PO TIDCM kidney disease 06/10/20 nitroglycerin 0.4 mg sublingual tablet 0.4 mg sublingual Q5M PRN Cardiac/Chest Pain #30 tabs 04/29/21 biotin 1 mg capsule 1 mg PO BID supplement 08/11/21 albuterol sulfate 90 mcg/actuation aerosol inhaler 2 puff IH Q4H PRN PRN Sob &/Or Wheezing 30 days #8.6 grams 10/25/21 apremilast 30 mg tablet (Otezla) 30 mg PO DAILY 09/08/22 levothyroxine 88 mcg tablet 88 mcg PO DAILY 12/31/22 trazodone 100 mg tablet 100 mg PO QHS 12/31/22 aspirin 81 mg tablet,delayed release (Adult Aspirin Regimen) 81 mg PO DAILY 01/28/23 bisacodyl 10 mg rectal suppository (Dulcolax (bisacodyl)) 10 mg [place] DAILY PRN constipation #30 ea 02/12/23 midodrine 10 mg tablet 10 mg PO MOWEFR PRN hypotension 04/15/23 carvedilol 12.5 mg tablet 6.25 mg PO BID 07/01/23 nystatin 100,000 unit/gram topical powder (Nyamyc) 1 applic topical BID PRN PRN SKIN 07/01/23 pantoprazole 40 mg tablet,delayed release 40 mg PO BID 07/01/23 atorvastatin 40 mg tablet 40 mg PO QHS #30 tabs 01/14/24 dicyclomine 10 mg capsule 10 mg PO DAILY PRN abdominal discomfort 01/14/24 famotidine 20 mg tablet 20 mg PO QDAY 01/14/24 insulin lispro 100 unit/mL subcutaneous pen (Humalog KwikPen (U-100) Insulin) 10 unit subcut TIDCM 01/14/24 gabapentin 100 mg capsule 200 mg PO QHS 05/06/24 ropinirole 2 mg tablet 2 mg PO DAILY 05/06/24 sertraline 100 mg tablet 100 mg PO DAILY 05/06/24 suvorexant 10 mg tablet (Belsomra) 10 mg PO QHS 05/06/24 tacrolimus 0.5 mg capsule, immediate-release 0.5 mg PO Q12H 05/06/24 torsemide 20 mg tablet 60 mg PO .QAM 05/06/24 vitamin B complex-vitamin C-folic acid 0.8 mg tablet (Danae-Chet) 1 tab PO DAILY 05/06/24 apixaban 5 mg tablet (Eliquis) 2.5 mg (1/2 x 5 mg) PO BID 21 days #0 tabs 05/13/24 Hospital Course Operations None Procedures Dialysis Summary of Care Provided Minutes Spent on Discharge: 34 Hospital Course: Per HPI: CHRISTINA KOU, is a 68 F who presents left hip pain. Patient has significant past medical comorbidities including history of renal transplant currently on immunosuppression therapy, end-stage renal disease on dialysis on Wednesdays and Fridays. Per patient she was carrying out her usual daily activities when she had a sudden pop in her left hip. She denied any trauma prior to this event. Per patient she nearly fell to the ground she was however called by her . In view of the persistent pain patient presented to the emergency department imaging studies obtained on admission did show Acute left basicervical fracture of the proximal left femur with cephalic migration of the distal fracture fragment. Soft tissue swelling. Orthopedic surgeon on-call Dr. Crump was notified patient admitted to regular nursing floor for further management Hospital Course: 1. Left hip fracture with acute on chronic debility ? Orthopedic surgery followed. Presented with left hip pain after twisting motion, did not have a fall. Hip x-ray showed an acute left basicervical fracture of the proximal left femur. Presumed pathologic fracture in setting of possible multiple myeloma as noted below. S/p left hip hemiarthroplasty on 05/[address] Crump. Tolerated procedure well, no intraoperative complications. Pain control with scheduled Tylenol and oxycodone as needed. Low-dose Eliquis for DVT prophylaxis. PT/OT/case management following. Planning for SNF on discharge; suspect patient will be medically ready on 04/15, awaiting bed placement. 05/13/2024: I discussed with her the plan for discharge today she expressed understanding of the risk and benefits of going to the retirement and would like to go today to start physical therapy. She will need to follow-up with Dr. Crump in another week and she will be weightbearing as tolerated on her left lower extremity. Will continue with Eliquis 2.5 mg p.o. twice daily for 21 more days. On review, she has not used any oxycodone for the last 2 days so will not discharge her with any. 2. Concern for multiple myeloma with osteolytic lesions ? Oncology evaluated. Imaging on admit showed multiple osteolytic lesions in the axial and appendicular skeleton along with a pathologic transcervical fracture of the left hip. Oncology noted that presentation is most concerning for multiple myeloma. Serum protein electrophoresis, immune fixation and serum free light chain studies ordered and results are pending. No further inpatient needs, will need close outpatient follow-up on discharge. 05/13/2024: Workup is still pending so would recommend outpatient follow-up 3. ESRD ? Nephrology following. Continue MWF HD while here per nephrology. 4. 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 Continue home tacrolimus. No inpatient needs, continue outpatient follow-up with GI. 5. Pancytopenia ? Suspect multifactorial from kidney disease, cirrhosis and possible multiple myeloma. Most recent labs with hemoglobin 7.6, WBC count 3.7, platelet count 93 and this is stable from previous days. Chronic medical conditions: ? Class II obesity: BMI 37 on admit. Complicates hospital course, care and prognosis. ? Type 2 diabetes mellitus with neuropathy: Continue treatment with sliding scale insulin with meals while inpatient. Continue gabapentin at night. ? History of CAD with stenting, hypertension, hyperlipidemia: Continue home aspirin, statin, Coreg. ? GERD: Continue home PPI. ? Hypothyroidism: Continue home Synthroid. ? Anxiety/depression: Continue home sertraline. ? Restless leg syndrome: Continue home ropinirole. ? History of cervical and uterine cancer s/p abdominal hysterectomy Physical Exam Narrative General: Alert, Oriented x3, Cooperative, No apparent distress HEENT: Atraumatic, PERRLA, EOMI, Normocephalic Oral: Moist Mucosa Neck: Supple, No JVD Lungs: Diminished, Normal air movement, No rhonchi, No wheeze, No rales Cardiovascular: Regular rate, Regular Rhythm, Normal S1, Normal S2, No murmurs Abdomen: Soft, Non Tender, Non-Distended, No Hepato-splenomegaly Extremities: No edema, Capillary Refill Less than 3 Seconds Skin: No rashes, No breakdown, incision is CDI Musculoskeletal: Mild tenderness to palpation of her left hip Neurological: No focal neurological deficits, moves all extremities, limited on the left lower extremity secondary to surgery. Psych/Mental Status: Normal Affect, Appropriate Weight / BMI Weight Weight: 217 lb 2.485 oz Body Mass Index (BMI) 36.1 ABG / Lab / Microbiology Data 05/13/24 06:39 05/13/24 06:39 Laboratory: Laboratory Results - last 24 hr 05/12/24 15:42: POC Glucose 114 H 05/12/24 21:54: POC Glucose 103 05/13/24 06:36: POC Glucose 94 05/13/24 06:39: WBC 4.1 L, RBC 2.55 L, Hgb 7.7 L, Hct 25.9 L, MCV 101.6 H, MCH 30.2, MCHC 29.7 L, RDW Std Deviation 70.1 H, RDW Coeff of Tami 18.5 H, Plt Count 102 L, MPV 11.5, Sodium 134, Potassium 5.6 H, Chloride 98, Carbon Dioxide 23.6, Anion Gap 13, BUN 55 H, Creatinine 6.53 H, Estim Creat Clear Calc 9.97 L*, Est GFR (MDRD) Non-Af 7 L, BUN/Creatinine Ratio 8.4 L, Glucose 88, Calcium 10.1 05/13/24 11:08: POC Glucose 170 H D/C Instructions DC O2, CPAP, BIPAP Needs Home O2 Discharge instructions: No Meaningful Use Info Meaningful Use Meaningful Use Diagnoses (Choose all that apply): None applicable Ischemic Stroke Statin Dosing Therapy Reference: STATIN DOSE THERAPY REFERENCE: * Patients > 75 years receive moderate or high dose statin therapy. * Patients 75 years or YOUNGER should receive HIGH intensity statin dose unless contraindicated. You will be required to document reason for non-treatment if statin daily dose does not meet guidelines. HIGH DOSE STATIN THERAPY DAILY Atorvastatin > than or = to 40 mg Rosuvastatin > than or = to 20 mg Amlodipine + Atorvastatin > than or = to 2.5/40 mg Ezetimibe + Simvastatin 10/80 mg Simvastatin 80mg Discharge Plan Admission Admit Date/Time: 05/06/24 10:42 Attending Provider: Owen Armenta Primary Care Provider: Velia Archuleta Consulting Providers: Barrett Strickland; Maida Mcintosh; Owen Crump; Jag Taylor; Boni Clifton Discharge Orders/Prescriptions Prescriptions: New Eliquis 5 mg Tablet 2.5 mg PO BID 21 Days Qty: 0 0RF Continued bisacodyl [Dulcolax (bisacodyl)] 10 mg suppository 10 mg [place] DAILY PRN (Reason: constipation) Qty: 30 0RF famotidine 20 mg tablet 20 mg PO QDAY dicyclomine 10 mg capsule 10 mg PO DAILY PRN (Reason: abdominal discomfort) Rx Instructions: once a day for pain insulin lispro [Humalog KwikPen Insulin] 100 unit/mL insulin pen 10 unit subcut TIDCM Patient Comments: TAKES 14U IF NEEDS atorvastatin 40 mg tablet 40 mg PO QHS Qty: 30 2RF ascorbic acid (vitamin C) 500 MG tablet,chewable 1,000 mg PO DAILY Patient Comments: supplement cholecalciferol (vitamin D3) 1,000 UNIT tablet 1,000 unit PO BID Patient Comments: bone health ropinirole 1 mg tablet 1 mg PO DAILY Rx Instructions: 2MG IN AM AND 1MG PM vitamin B complex 1 EACH tablet 1 tablet PO DAILY sevelamer carbonate [Renvela] 800 MG tablet 2,400 mg PO TIDCM nitroglycerin 0.4 mg Tablet, Sublingual 0.4 mg sublingual Q5M PRN (Reason: Cardiac/Chest Pain) Qty: 30 0RF biotin 1 mg Capsule 1 mg PO BID albuterol sulfate 1 PUFF inhaler 2 puff IH Q4H PRN PRN (Reason: Sob &/Or Wheezing) 30 Days Qty: 8.6 0RF Otezla 30 mg tablet 30 mg PO DAILY midodrine 10 mg tablet 10 mg PO MOWEFR PRN (Reason: hypotension) Patient Comments: ON HOLD FOR LAST 2-3 WEEKS Rx Instructions: afternoon levothyroxine 88 mcg tablet 88 mcg PO DAILY trazodone 100 mg tablet 100 mg PO QHS aspirin [Adult Aspirin Regimen] 81 mg tablet,delayed release (DR/EC) 81 mg PO DAILY carvedilol 12.5 mg tablet 6.25 mg PO BID pantoprazole 40 mg tablet,delayed release (DR/EC) 40 mg PO BID nystatin [Nyamyc] 100,000 unit/gram Powder 1 applic topical BID PRN PRN (Reason: SKIN) Protocol: *Topical Application Instructions APPLICATION INSTRUCTIONS: apply to abdominal folds torsemide 20 mg tablet 60 mg PO .QAM Patient Comments: [NO ORIGINAL SIG] ropinirole 2 mg tablet 2 mg PO DAILY Rx Instructions: 2MG IN AM AND 1MG PM Danae-Chet 0.8 mg tablet 1 tab PO DAILY gabapentin 100 mg capsule 200 mg PO QHS tacrolimus 0.5 mg capsule 0.5 mg PO Q12H Patient Comments: [NO ORIGINAL SIG] sertraline 100 mg tablet 100 mg PO DAILY Belsomra 10 mg tablet 10 mg PO QHS Discontinued doxycycline monohydrate 100 mg capsule 100 mg PO BID Referrals / Follow Up: Velia Archuleta MD [Primary Care Provider] - Owen Crump DO [Med Staff - Active Staff] - Within 1 Week Disposition Disposition (needs filled in before D/C Order can be placed): [facility] Facility Charges/Coding Visit Charges Inpatient E&M: 23619 Disch Hosp >30min
--- NOTE | 2024-05-13 16:26 | NURSING ---
All documentation by nursing unit coordinator Abiola Whittaker reviewed by clinical nursing intern Dian THORNTONN, RN.
== END 2024-05-13 14:04 | disposition skilled nursing facility (03) | DRG 521 ==
LOC: ED 10:45 → MS3 11:27
PROVIDERS: Hospitalist; Internal Medicine Hematology & Oncology; Student in an Organized Health Care Education/Training Program; Admitting Provider Internal Medicine; Emergency Provider Emergency Medicine; PCP Internal Medicine; Visit Provider Family Medicine
PROC: 0SRS0J9 Replacement of Left Hip Joint, Femoral Surface with Synthetic Substitute, Cemented, Open Approach (ICD-10-PCS; CPT 27125; principal; 2024-05-07 14:10)
DX: M84.552A Pathological fracture in neoplastic disease, left femur, initial encounter for fracture (principal); N18.6 End stage renal disease; C90.00 Multiple myeloma not having achieved remission; D61.818 Other pancytopenia; I12.0 Hypertensive chronic kidney disease with stage 5 chronic kidney disease or end stage renal disease; Z94.4 Liver transplant status; E11.22 Type 2 diabetes mellitus with diabetic chronic kidney disease; J44.9 Chronic obstructive pulmonary disease, unspecified; F32.A Depression, unspecified; E03.9 Hypothyroidism, unspecified; G25.81 Restless legs syndrome; E66.812 Obesity, class 2; Z99.2 Dependence on renal dialysis; K21.9 Gastro-esophageal reflux disease without esophagitis; I25.10 Atherosclerotic heart disease of native coronary artery without angina pectoris; Z79.4 Long term (current) use of insulin; E11.42 Type 2 diabetes mellitus with diabetic polyneuropathy; E78.5 Hyperlipidemia, unspecified; E87.5 Hyperkalemia; F41.9 Anxiety disorder, unspecified; K76.0 Fatty (change of) liver, not elsewhere classified; X50.1XXA Overexertion from prolonged static or awkward postures, initial encounter; R53.81 Other malaise; M89.8X5 Other specified disorders of bone, thigh; Z90.710 Acquired absence of both cervix and uterus; Z95.5 Presence of coronary angioplasty implant and graft; Z86.718 Personal history of other venous thrombosis and embolism; Z68.37 Body mass index [BMI] 37.0-37.9, adult; Z79.82 Long term (current) use of aspirin; Z79.890 Hormone replacement therapy; Z79.899 Other long term (current) drug therapy; Z85.41 Personal history of malignant neoplasm of cervix uteri; Z85.42 Personal history of malignant neoplasm of other parts of uterus; Z86.16 Personal history of COVID-19
CPT/HCPCS: 36415; 36600; 70450; 71260; 72170; 73502; 73552; 73700; 74177; 80048; 80053; 80076; 82784; 82803; 82962; 83036; 83735; 83883; 84100; 84165; 84166; 84443; 85025; 85027; 85610; 85730; 86334; 86335; 86850; 86900; 86901; 88307; 88311; 90937; 94640; 94668; 97162; 97166; 97530; 97535; 99285; C1776; Q9967; A4216; G0257; J2405; Q5106

== ENCOUNTER 2024-06-16 09:21 | Outpatient (CLI) | payer MEDICARE, MEDICAID, SELFPAY ==
[2024-06-16] VITALS (12 sets, daily range): BP systolic 99–159; BP diastolic 36–84; PULSE 79–88; RESP 13–19; TEMP 36.1; O2SAT 87–100; BMI 36.6
--- NOTE | 2024-06-16 09:46 | CT_ITS ---
PROCEDURE: BIOPSY/INJ OR NEEDLE PLACEMENT 06/16/2024. Bone marrow biopsy. REASON FOR EXAM: BONE LESIONS TECHNIQUE: The bone marrow biopsy procedure as well as the benefits and possible complications including infection and bleeding were explained to the patient. Informed consent was obtained. One or more dose reduction techniques were used (e.g., Automated exposure control, adjustment of the mA and/or kV according to patient size, use of iterative reconstruction technique). RADIATION DOSE SUMMARY: CTDlvol: 21 mGy DLP: 779.95 mGycm COMPARISON: None FINDINGS: The patient was in the prone position. The overlying skin was prepped and draped in the usual sterile fashion. Conscious sedation was performed. The patient received 2 mg of Versed and 50 mcg of fentanyl intravenously. Conscious sedation was started at 10:33 a.m. and terminated at 10:56 a.m.. The patient was independently monitored by the department nurse. Following local anesthetic application, a 11 gauge bone marrow biopsy needle was placed into the posterior aspect of the right iliac bone. Bone marrow aspirate as well as bone marrow biopsy were performed. The patient tolerated the procedure well. No immediate post procedure complication noted. CT/Biopsy/Inj or Needle Placement IMPRESSION: Successful CT-guided right posterior iliac bone marrow biopsy and aspiration as described. The patient tolerated the procedure well. Conscious sedation protocol was followed. Reading Location: [place] [id number]
[2024-06-16 09:56] LABS: Absolute Lymphocyte Count 0.59 X10^3/uL (0.83-4.51); Absolute Neutrophil Count 1.4 X10^3/uL (2.0-7.7); Basophil# 0.02 X10^3/uL; Basophil% 0.9 % (0-1); Eosinophil# 0.09 X10^3/uL; Eosinophils% 3.9 % (0-5); Hematocrit 30.7 % (37-47); Hemoglobin 9.2 g/dL (12.0-15.0); Lymphocyte # 0.59 X10^3/ul (0.83-4.51); Lymphocyte % 25.5 % (19-41); Mean Corpuscular Hgb 30.2 pg (27.0-32.0); Mean Corpuscular Volume 100.7 fL (81-99); Mean Platelet Vol. 10.1 fl (6.2-12.0); Monocyte# 0.21 X10^3/uL; Monocyte% 9.1 % (0-10); NRBC Flagged by Analyzer 0 % (0-5); Neutrophil # 1.38 X10^3/uL (2.7-7.7); Neutrophil % 59.7 % (47-70); POSITIVE COUNT YES; POSITIVE DIFFERENTIAL YES; POSITIVE MORPHOLOGY YES; Platelet Count 85 K/mm3 (150-450); RBC Distribution Width CV 18.4 % (11.6-14.6); RBC Distribution Width SD 68.4 fl (35.1-43.9); Red Blood Count 3.05 M/mm3 (4.2-5.4); White Blood Count 2.3 K/mm3 (4.4-11.0)
[2024-06-16 10:07] LABS: Differential Indicated SCAN CRITERIA MET
[2024-06-16 10:10] LABS: Prothrombin Time (Protime)PT. 13.3 SECONDS (11.7-14.9)
[2024-06-16 10:29] LABS: Ammonia 10.8 umol/L (11-51)
[2024-06-16] MEDS: Midazolam 2 MG/2 ML Syringe IV (10:33)
[2024-06-16 10:35] LABS: Hemoglobin A1c 4.9 % (<=5.6)
[2024-06-16] MEDS: fentaNYL 100 MCG/2 ML Ampul IV (10:35)
[2024-06-16] MEDS: 0.9% Saline Lock 10 ML Syringe IV (10:39)
[2024-06-16 10:41] LABS: Anisocytosis 1+; Basophilic Stippling 1+; Platelet Estimate MOD DEC (ADEQ)
[2024-06-16 10:42] LABS: Ovalocyte 1+; Polychromasia 1+
[2024-06-16 10:43] LABS: Pathologist Review May foll
[2024-06-16 10:45] LABS: ALB/GLOB Ratio 1.4 RATIO (0.9-2.4); AST(SGOT) 21 U/L (<=31); Alanine Aminotransfer ALT/SGPT 15 U/L (<=34); Albumin, Serum 3.6 g/dL (3.4-4.8); Alkaline Phosphatase 115 U/L (35-104); Anion Gap 11 (5-15); BUN 22 mg/dL (4-19); Carbon Dioxide 30.3 mmol/L (21.0-32.0); Chloride 97 mmol/L (98-108); Creatinine, Serum 4.42 mg/dL (0.70-1.20); EST Glomerular Filtration Rate 10 (>60); Estimated Creatinine Clearance 14.65 ml/min (50-250); Globulin 2.6 g/dL (2.2-4.2); Glucose 135 mg/dL (70-99); Protein, Total 6.1 g/dL (5.9-8.4); Sodium Level 138 mmol/L (133-145); Total Bilirubin 0.52 mg/dL (0.00-1.30); Vitamin D,25 Hydroxy 86.6 ng/mL (30-100)
[2024-06-16] MEDS: Lidocaine 2% (20 ml mdv) 20 ML Vial INFILT (10:50)
[2024-06-16 11:21] LABS: Cholesterol 115 mg/dL (<=200); High Density Lipoprotein 44 mg/dL; LDH 178 U/L (84-246); Low Density Lipoprotein Calc. 42 mg/dL; Triglycerides 143 mg/dL; Very Low Density Lipoprotein 29 mg/dL (5-40)
[2024-06-16 11:39] LABS: Pathology Sent to OSU SEE PATHOLOGY REPORT
[2024-06-17 15:08] LABS: AFP, Tumor Marker 1.9 ng/mL (0.0-9.2); ANTINUCLEAR ANTIBODIES DIRECT Negative (Negative); Anti-Mitochondrial AB <20.0 Units (0.0-20.0); Anti-Smooth Muscle ABS 10 Units (0-19)
== END 2024-06-16 23:59 | disposition home or self-care (01) ==
PROVIDERS: Internal Medicine; PCP Internal Medicine; Referring Provider Internal Medicine Hematology & Oncology; Visit Provider Internal Medicine Hematology & Oncology
DX: M89.8X5 Other specified disorders of bone, thigh (principal); K74.60 Unspecified cirrhosis of liver; Z94.4 Liver transplant status; E66.01 Morbid (severe) obesity due to excess calories; E11.9 Type 2 diabetes mellitus without complications; M81.0 Age-related osteoporosis without current pathological fracture; K75.81 Nonalcoholic steatohepatitis (NASH); K52.9 Noninfective gastroenteritis and colitis, unspecified; D64.9 Anemia, unspecified
CPT/HCPCS: 38222; 36415; 77012; 80053; 80061; 82105; 82140; 82306; 83036; 83516; 83615; 85025; 85610; 86038; 86140; 86225; 86235; 96374; 99156; A4216

== ENCOUNTER 2024-07-20 09:45 | Emergency (ER) | payer MEDICARE, MEDICAID, SELFPAY ==
[2024-07-20 09:46] VITALS: BP 136/50; PULSE 72; RESP 18; TEMP 36.9; O2SAT 93; BMI 35.9
--- NOTE | 2024-07-20 10:13 | EX.ED.DYSGE1 ---
HPI History of Present Illness Chief Complaint: Wound Narrative Narrative: Patient is a 69-year-old female with past medical history of amyloidosis, diabetes, end-stage renal disease on dialysis, depression, hypothyroidism, neuropathy, COPD who presented to the emergency department with chief complaint of left foot with wounds. States that the other day she was cooking and accidentally hit her toes on the stove. States that she not realize at this time secondary to her neuropathy and decreased sensation in lower extremities. States that she noted that they have become red and swollen. States that she had to call her foot doctor and noted that they could not get her in until Saturday therefore she came here for the evaluation management. Patient states that she is not been on any antibiotics for this. Patient overall has no other complaints. [facility] Medical History Pancytopenia Secondary amyloidosis Lytic bone lesion of left femur Hypokalemia Ankle sprain Contusion of right shoulder Contusion of right knee Cervical strain, acute History of subdural hematoma (post traumatic) Closed head injury Generalized weakness Ambulatory dysfunction Diabetes Dialysis patient Sleep apnea Easy bruising Restless legs Difficulty swallowing Dietary restriction History of ulceration Shortness of breath on exertion CPAP (continuous positive airway pressure) dependence Influenza A Sepsis Acute dyspnea Pneumonia Anxiety Depression Hypothyroidism Irregular heart beat Hypertension DVT (deep venous thrombosis) Multiple falls Uses wheelchair History of renal dialysis Osteoporosis Cirrhosis Non-smoker ESRD (end stage renal disease) Pancytopenia Chronic renal failure, stage 5 Infection involving suture with abscess Wears glasses Wears dentures Cancer Insulin dependent diabetes mellitus Anemia Hx of Krueger's palsy Back pain Gastric reflux COPD (chronic obstructive pulmonary disease) History of edema History of echocardiogram (~01/22/20) History of stress test (~12/07/19) Cardiology follow-up encounter [employer] History of uterine cancer Hypertension Anemia in chronic kidney disease Home Medications ?Medication ?Instructions ?Recorded ?Last Taken ?Type ascorbic acid (vitamin C) 500 mg 1,000 mg PO DAILY supplement 02/20/15 05/05/24 History chewable tablet cholecalciferol (vitamin D3) 25 1,000 unit PO BID supplement 02/20/15 05/05/24 History mcg (1,000 unit) tablet vitamin B complex 1 tablet PO DAILY SUPPLEMENT 09/10/19 05/05/24 History ropinirole 1 mg tablet 1 mg PO DAILY restless legs 05/23/20 05/05/24 History sevelamer carbonate 800 mg tablet 2,400 mg PO TIDCM kidney disease 06/10/20 05/05/24 History (Renvela) nitroglycerin 0.4 mg sublingual 0.4 mg sublingual Q5M PRN 04/29/21 Unknown Rx tablet Cardiac/Chest Pain #30 tabs albuterol sulfate 90 mcg/actuation 2 puff IH Q4H PRN PRN Sob &/Or 10/25/21 Unknown Rx aerosol inhaler Wheezing 30 days #8.6 grams apremilast 30 mg tablet (Otezla) 30 mg PO DAILY 09/08/22 05/05/24 History levothyroxine 88 mcg tablet 88 mcg PO DAILY 12/31/22 05/05/24 History trazodone 100 mg tablet 100 mg PO QHS 12/31/22 05/05/24 History aspirin 81 mg tablet,delayed 81 mg PO DAILY 01/28/23 05/05/24 History release (Adult Aspirin Regimen) bisacodyl 10 mg rectal suppository 10 mg VT DAILY PRN constipation 02/12/23 07/03/23 Rx (Dulcolax (bisacodyl)) #30 ea midodrine 10 mg tablet 10 mg PO MOWEFR PRN hypotension 04/15/23 05/04/24 History carvedilol 12.5 mg tablet 6.25 mg PO BID 07/01/23 05/05/24 History nystatin 100,000 unit/gram topical 1 applic topical BID PRN PRN SKIN 07/01/23 Unknown History powder ([facility]) pantoprazole 40 mg tablet,delayed 40 mg PO BID 07/01/23 05/05/24 History release atorvastatin 40 mg tablet 40 mg PO QHS #30 tabs 01/14/24 05/05/24 Rx dicyclomine 10 mg capsule 10 mg PO DAILY PRN abdominal 01/14/24 Unknown History discomfort insulin lispro 100 unit/mL 10 unit subcut TIDCM 01/14/24 Unknown History subcutaneous pen (Humalog KwikPen (U-100) Insulin) gabapentin 100 mg capsule 200 mg PO QHS 05/06/24 05/05/24 History ropinirole 2 mg tablet 2 mg PO DAILY 05/06/24 05/05/24 History sertraline 100 mg tablet 100 mg PO DAILY 05/06/24 05/05/24 History suvorexant 10 mg tablet (Belsomra) 10 mg PO QHS 05/06/24 05/05/24 History tacrolimus 0.5 mg capsule, 0.5 mg PO Q12H 05/06/24 05/05/24 History immediate-release torsemide 20 mg tablet 60 mg PO .QAM 05/06/24 05/05/24 History vitamin B complex-vitamin C-folic 1 tab PO DAILY 05/06/24 05/05/24 History acid 0.8 mg tablet (Danae-Chet) hydrocodone-acetaminophen 5-325mg 1 tab PO BID PRN 07/01/24 Unknown History 5mg-325mg suvorexant 10 mg tablet (Belsomra) 10 mg PO QHS 07/01/24 Unknown History doxycycline hyclate 100 mg capsule 100 mg PO BID #14 caps 07/20/24 Unknown Rx Allergy/AdvReac Type Severity Reaction Status Date / Time amlodipine (From Norvasc) Allergy Severe Hives Verified 07/20/24 09:46 ampicillin sodium (From Allergy Severe Hives Verified 07/20/24 09:46 Unasyn) buspirone HCl (From BuSpar) Allergy Severe Hives Verified 07/20/24 09:46 cefadroxil (From Duricef) Allergy Severe Hives Verified 07/20/24 09:46 lisinopril Allergy Severe Swelling Verified 07/20/24 09:46 naproxen Allergy Severe Hives Verified 07/20/24 09:46 niacin (From Niaspan Allergy Severe Hives Verified 07/20/24 09:46 Extended-Release) sulbactam sodium (From Allergy Severe Hives Verified 07/20/24 09:46 Unasyn) Sulfa (Sulfonamide Allergy Severe Hives Verified 07/20/24 09:46 Antibiotics) tramadol Allergy Mild Nausea Verified 07/20/24 09:46 cephalexin (From Keflex) Allergy Vomiting Verified 07/20/24 09:46 omeprazole AdvReac Severe Other Verified 07/20/24 09:46 losartan AdvReac Swelling Verified 07/20/24 09:46 Family History Mother Diabetes Anemia Father Hypertension LUNG/RESPIRATORY DISEASE Surgical History History of esophagogastroduodenoscopy (EGD) History of coronary artery stent placement History of cardiac catheterization History of appendectomy S/P arteriovenous (AV) fistula creation (~06/16/20) History of cholecystectomy History of left salpingo-oophorectomy History of radical hysterectomy History of left knee surgery History of ventral hernia repair History of liver transplant Social History housing: apartment current occupational status: disabled Smoking Status: Never smoker alcohol intake: never substance use type: does not use ROS ROS ED ROS Narrative Constitutional: Denies fevers, chills, headaches, lightness, dizziness Eyes: Denies change in vision double vision blurry vision Cardiovascular: Denies chest pain Respiratory: Denies shortness of breath Neurological: Complains of history of neuropathy with decreased sensation to her bilateral lower extremities this is not new denies numbness weakness tingling Skin: Complains of wounds and redness to the left toes as noted above EXAM Physical Exam Narrative Exam Narrative: General: Patient lying in bed rest comfortably did not appear to be in acute distress Head: Atraumatic, normocephalic Eyes: PERRL bilaterally, EOMI bilateral, no conjunctival injection noted Neck: Soft, supple, trachea midline Cardiovascular: Regular in rhythm no murmurs gallops rubs noted Respiratory: Clear to auscultation bilaterally Abdomen: Soft, nondistended, nontender to palpation Extremities: DP pulses +2/4 in the bilateral lower extremities, +4/5 strength noted in the bilateral upper and lower extremities Neurological: Patient following commands and that she was at [facility] years 2024 Skin: Patient has wounds to the dorsal aspect of her great toe second toe and third toe on the left side with some serosanguineous drainage noted there is some mild erythema surrounding this noted no petechia no purpura no sloughing skin noted. Patient has a left pinky toe amputation noted that is well-healed Const Vital Signs: 07/20/24 09:46 Temperature 98.5 F Temperature Source Oral Pulse Rate 72 Respiratory Rate 18 Blood Pressure 136/50 H Blood Pressure Mean 78 Pulse Ox 93 Oxygen Delivery Method Room Air MDM MDM MDM Narrative Medical decision making narrative: Patient is a 69-year-old female who presented to the emerged department for toe wound evaluation. On the differential diagnose includes but limited to osteomyelitis, cellulitis. Once workup is obtained reviewed she will be reevaluated. Once again the patient has not been on any antibiotics for this. Patient's x-ray of her foot reviewed by myself and the radiology which showed no acute findings status post amputation of the fifth digit. Did discuss results with patient she would like to go home this point time. Patient will be placed on doxycycline. She has multiple medication allergies noted in her list and states that she can normally really only take doxycycline. Should be given prescription for this she was advised to follow-up with her foot doctor on Saturday with the available that they have for her. She is encouraged return with worsening symptoms and concerns. She is agreeable this plan all question concerns answered she was discharged home in stable condition Radiography Diagnostic Testing: Clinical Impression(s) from Imaging Studies Foot X-Ray 07/20/24 10:15 IMPRESSION: 1. Status post amputation of the 5th digit. 2. No acute findings Reading [facility] Discharge Plan Triage Chief Complaint: Wound ED Provider: Walter Vargas Dx/Rx/DC Orders Clinical Impression: Cellulitis of foot Prescriptions: New doxycycline hyclate 100 mg capsule 100 mg PO BID Qty: 14 0RF No Action bisacodyl [Dulcolax (bisacodyl)] 10 mg suppository 10 mg VT DAILY PRN (Reason: constipation) Qty: 30 0RF dicyclomine 10 mg capsule 10 mg PO DAILY PRN (Reason: abdominal discomfort) Rx Instructions: once a day for pain insulin lispro [Humalog KwikPen Insulin] 100 unit/mL insulin pen 10 unit subcut TIDCM Patient Comments: TAKES 14U IF NEEDS atorvastatin 40 mg tablet 40 mg PO QHS Qty: 30 2RF hydrocodone-acetaminophen 5-325 mg tablet 1 tab PO BID PRN Belsomra 10 mg tablet 10 mg PO QHS ascorbic acid (vitamin C) 500 MG tablet,chewable 1,000 mg PO DAILY Patient Comments: supplement cholecalciferol (vitamin D3) 1,000 UNIT tablet 1,000 unit PO BID Patient Comments: bone health ropinirole 1 mg tablet 1 mg PO DAILY Rx Instructions: 2MG IN AM AND 1MG PM vitamin B complex 1 EACH tablet 1 tablet PO DAILY sevelamer carbonate [Renvela] 800 MG tablet 2,400 mg PO TIDCM nitroglycerin 0.4 mg Tablet, Sublingual 0.4 mg sublingual Q5M PRN (Reason: Cardiac/Chest Pain) Qty: 30 0RF albuterol sulfate 1 PUFF inhaler 2 puff IH Q4H PRN PRN (Reason: Sob &/Or Wheezing) 30 Days Qty: 8.6 0RF Otezla 30 mg tablet 30 mg PO DAILY midodrine 10 mg tablet 10 mg PO MOWEFR PRN (Reason: hypotension) Patient Comments: ON HOLD FOR LAST 2-3 WEEKS Rx Instructions: afternoon levothyroxine 88 mcg tablet 88 mcg PO DAILY trazodone 100 mg tablet 100 mg PO QHS aspirin [Adult Aspirin Regimen] 81 mg tablet,delayed release (DR/EC) 81 mg PO DAILY carvedilol 12.5 mg tablet 6.25 mg PO BID pantoprazole 40 mg tablet,delayed release (DR/EC) 40 mg PO BID nystatin [Nyamyc] 100,000 unit/gram Powder 1 applic topical BID PRN PRN (Reason: SKIN) Protocol: *Topical Application Instructions APPLICATION INSTRUCTIONS: apply to abdominal folds torsemide 20 mg tablet 60 mg PO .QAM Patient Comments: [NO ORIGINAL SIG] ropinirole 2 mg tablet 2 mg PO DAILY Rx Instructions: 2MG IN AM AND 1MG PM Danae-Chet 0.8 mg tablet 1 tab PO DAILY gabapentin 100 mg capsule 200 mg PO QHS tacrolimus 0.5 mg capsule 0.5 mg PO Q12H Patient Comments: [NO ORIGINAL SIG] sertraline 100 mg tablet 100 mg PO DAILY Belsomra 10 mg tablet 10 mg PO QHS Primary Care Provider: Velia Archuleta Referrals: Velia Archuleta MD [Primary Care Provider] - Activity Restrictions/Additional Instructions: Follow-up with your foot doctor a appointment on Saturday. Take antibiotics as prescribed. While on antibiotics after 24 hours of antibiotics if you have worsening redness or concern for infection return to the emergency department you can also follow-up with your primary care physician as well. Return with any other concerns as well Print Language: Fijian Disposition Disposition: Home, Self Care
--- NOTE | 2024-07-20 10:15 | RAD_ITS ---
PROCEDURE: FOOT MIN 3 VIEWS 07/20/2024 REASON FOR EXAM: TOE WOUNDS, FIRST THREE TOES Left foot pain TECHNIQUE: 3 views of the left foot. COMPARISON: 11/22/2023 FINDINGS: Status post amputation of the left 5th digit. No acute fracture or dislocation seen. Small inferior calcaneal spur. MRI is more sensitive and specific for evaluation of osteomyelitis however no osseous erosion and no osseous gas is seen to suggest osteomyelitis. MRI follow-up can be considered as warranted. No soft tissue gas seen. No radiopaque foreign bodies. RAD/Foot min 3 Views IMPRESSION: 1. Status post amputation of the 5th digit. 2. No acute findings Reading Location: [facility]
[2024-07-20 11:31] VITALS: BP 157/89; PULSE 78; RESP 16; TEMP 36.7; O2SAT 94
== END 2024-07-20 11:36 | disposition home or self-care (01) ==
PROVIDERS: Emergency Provider Emergency Medicine; PCP Internal Medicine; Visit Provider Emergency Medicine
DX: L03.116 Cellulitis of left lower limb (principal); I12.0 Hypertensive chronic kidney disease with stage 5 chronic kidney disease or end stage renal disease; N18.6 End stage renal disease; Z94.4 Liver transplant status; J44.9 Chronic obstructive pulmonary disease, unspecified; Z79.4 Long term (current) use of insulin; E11.22 Type 2 diabetes mellitus with diabetic chronic kidney disease; E11.40 Type 2 diabetes mellitus with diabetic neuropathy, unspecified; Z99.2 Dependence on renal dialysis; W22.09XA Striking against other stationary object, initial encounter; Y93.G3 Activity, cooking and baking; G47.30 Sleep apnea, unspecified; Z99.89 Dependence on other enabling machines and devices; G25.81 Restless legs syndrome; E03.9 Hypothyroidism, unspecified; Z79.890 Hormone replacement therapy; Z79.82 Long term (current) use of aspirin; K21.9 Gastro-esophageal reflux disease without esophagitis; Z79.899 Other long term (current) drug therapy; F41.9 Anxiety disorder, unspecified; F32.A Depression, unspecified; Z95.5 Presence of coronary angioplasty implant and graft; Z90.49 Acquired absence of other specified parts of digestive tract; Z90.721 Acquired absence of ovaries, unilateral; Z90.710 Acquired absence of both cervix and uterus
CPT/HCPCS: 73630; 99282

== ENCOUNTER → 2024-07-21 | Outpatient (CLI) | payer MEDICARE, MEDICAID, SELFPAY | END | disposition home or self-care (01) | LOC: LABSPEC 16:35 | PROVIDERS: PCP Internal Medicine; Visit Provider Podiatrist | DX: L97.522 Non-pressure chronic ulcer of other part of left foot with fat layer exposed (principal); L03.116 Cellulitis of left lower limb | CPT/HCPCS: 87070; 87077; 87186; 87205 ==

== ENCOUNTER 2024-07-22 21:03 | Emergency (ER) | payer MEDICARE, MEDICAID, SELFPAY ==
[2024-07-22 21:04] VITALS: BP 152/57; PULSE 91; RESP 18; TEMP 37; O2SAT 99; BMI 37.3
--- NOTE | 2024-07-22 22:00 | CT_ITS ---
PROCEDURE: SPINE CERVICAL WITHOUT CONTRAS 07/22/2024 REASON FOR EXAM: TRAUMA TECHNIQUE: Cervical spine CT without contrast. Coronal and Sagittal reconstruction series were provided. One or more dose reduction techniques were used (e.g., Automated exposure control, adjustment of the mA and/or kV according to patient size, use of iterative reconstruction technique RADIATION DOSE SUMMARY: CTDlvol: 44.99+ 24.29 mGy DLP: 1254.57 mGycm COMPARISON: None. FINDINGS: No evidence of acute fracture or dislocation. Vertebral body heights are maintained. Up to moderate discogenic degenerative changes of the cervical spine. Straightening of the normal cervical lordosis. The soft tissues are unremarkable. The lung apices are clear. CT/Spine Cervical without Contras IMPRESSION: No acute osseous abnormality. Reading Location: [place] [id number]
--- NOTE | 2024-07-22 22:00 | CT_ITS ---
PROCEDURE: BRAIN/HEAD WITHOUT CONTRAST 07/22/2024 REASON FOR EXAM: TRAUMA TECHNIQUE: Head CT without intravenous contrast. Coronal and Sagittal reconstruction series were provided. One or more dose reduction techniques were used (e.g., Automated exposure control, adjustment of the mA and/or kV according to patient size, use of iterative reconstruction technique. RADIATION DOSE SUMMARY: CTDlvol: 44.99+ 24.29 mGy DLP: 1254.57 mGycm COMPARISON: None. FINDINGS: Brain: Normal CSF Spaces: Normal Sinuses/Mastoids: Clear at visualized levels Bones: Intact. Superficial soft tissue swelling/hematoma overlying the left occiput. CT/Brain/Head without Contrast IMPRESSION: No acute intracranial abnormalities. Superficial soft tissue swelling/hematoma overlying the left occiput. Reading Location: [place] [id number]
[2024-07-22] MEDS: Acetaminophen 500 MG Tablet 1000 MG PO (22:09)
[2024-07-22] MEDS: Diphth,Pertuss(Acell),Tet Vac 0.5 ML Vial IM (22:09)
--- NOTE | 2024-07-22 22:09 | ED.VIS.FALL ---
HPI HPI - Fall History of Present Illness Chief Complaint: Fall Narrative Narrative: Chief complaint and HPI: Mechanical fall with closed head injury. 69-year-old female with extensive medical history including CKD, DM, HOFFMAN presents for evaluation of close head injury after mechanical fall. Patient states that she is mostly wheelchair-bound. She states that she was getting out of the wheelchair onto the bed when she lost her balance and fell backwards. She states she hit her head on her 's knee walker. She denies any loss of consciousness. Not on blood thinners. States that she was unable to get off the ground by herself but that this is not abnormal for her as she is wheelchair-bound. She endorses pain posteriorly where she has a hematoma. She denies any syncope, lightheadedness, vision changes, neck pain, chest pain, shortness of breath, abdominal pain, nausea, vomiting, dysuria, extremity pain. Review of systems: See HPI Medications: As listed on the chart Allergies: As listed on the chart PFSH: Per chart Vital signs: As listed on the chart. Reviewed. Physical exam: Gen: A&O x3, NAD Head: Normocephalic, posterior hematoma with skin abrasion overlying the hematoma-minimal bleeding-no laceration for repair, no Angulo sign Eyes: No sclera icterus, conjunctiva clear, PERRL, EOMI ENT: TMs clear BL, moist mucous membranes, no swelling/lacerations/blood in the mouth or the nares, No nasal septal hematoma, no facial tenderness Neck: Trachea midline, No JVD, Nontender CV: RRR, no murmurs, no chest wall TTP Resp: Lungs CTA BL, no w/r/c GI: Abd soft, non-distended, non-tender, no r/r/g Musc: Moves all extremities, no deformity, no spinal TTP, no jayson step-offs Skin: Warm, dry, bilateral lymphedema of the bilateral lower extremities-patient's baseline Neuro: Alert, oriented, grossly intact, sensation intact, GCS 15 Psych: Cooperative, appropriate mood and affect [facility] Medical History Pancytopenia Secondary amyloidosis Lytic bone lesion of left femur Hypokalemia Ankle sprain Contusion of right shoulder Contusion of right knee Cervical strain, acute History of subdural hematoma (post traumatic) Closed head injury Generalized weakness Ambulatory dysfunction Diabetes Dialysis patient Sleep apnea Easy bruising Restless legs Difficulty swallowing Dietary restriction History of ulceration Shortness of breath on exertion CPAP (continuous positive airway pressure) dependence Influenza A Sepsis Acute dyspnea Pneumonia Anxiety Depression Hypothyroidism Irregular heart beat Hypertension DVT (deep venous thrombosis) Multiple falls Uses wheelchair History of renal dialysis Osteoporosis Cirrhosis Non-smoker ESRD (end stage renal disease) Pancytopenia Chronic renal failure, stage 5 Infection involving suture with abscess Wears glasses Wears dentures Cancer Insulin dependent diabetes mellitus Anemia Hx of Krueger's palsy Back pain Gastric reflux COPD (chronic obstructive pulmonary disease) History of edema History of echocardiogram (~01/22/20) History of stress test (~12/07/19) Cardiology follow-up encounter [facility] History of uterine cancer Hypertension Anemia in chronic kidney disease Home Medications ?Medication ?Instructions ?Recorded ?Last Taken ?Type ascorbic acid (vitamin C) 500 mg 1,000 mg PO DAILY supplement 02/20/15 05/05/24 History chewable tablet cholecalciferol (vitamin D3) 25 1,000 unit PO BID supplement 02/20/15 05/05/24 History mcg (1,000 unit) tablet vitamin B complex 1 tablet PO DAILY SUPPLEMENT 09/10/19 05/05/24 History ropinirole 1 mg tablet 1 mg PO DAILY restless legs 05/23/20 05/05/24 History sevelamer carbonate 800 mg tablet 2,400 mg PO TIDCM kidney disease 06/10/20 05/05/24 History (Renvela) nitroglycerin 0.4 mg sublingual 0.4 mg sublingual Q5M PRN 04/29/21 Unknown Rx tablet Cardiac/Chest Pain #30 tabs albuterol sulfate 90 mcg/actuation 2 puff IH Q4H PRN PRN Sob &/Or 10/25/21 Unknown Rx aerosol inhaler Wheezing 30 days #8.6 grams apremilast 30 mg tablet (Otezla) 30 mg PO DAILY 09/08/22 05/05/24 History levothyroxine 88 mcg tablet 88 mcg PO DAILY 12/31/22 05/05/24 History trazodone 100 mg tablet 100 mg PO QHS 12/31/22 05/05/24 History aspirin 81 mg tablet,delayed 81 mg PO DAILY 01/28/23 05/05/24 History release (Adult Aspirin Regimen) bisacodyl 10 mg rectal suppository 10 mg [place] DAILY PRN constipation 02/12/23 07/03/23 Rx (Dulcolax (bisacodyl)) #30 ea midodrine 10 mg tablet 10 mg PO MOWEFR PRN hypotension 04/15/23 05/04/24 History carvedilol 12.5 mg tablet 6.25 mg PO BID 07/01/23 05/05/24 History nystatin 100,000 unit/gram topical 1 applic topical BID PRN PRN SKIN 07/01/23 Unknown History powder ([facility]) pantoprazole 40 mg tablet,delayed 40 mg PO BID 07/01/23 05/05/24 History release atorvastatin 40 mg tablet 40 mg PO QHS #30 tabs 01/14/24 05/05/24 Rx dicyclomine 10 mg capsule 10 mg PO DAILY PRN abdominal 01/14/24 Unknown History discomfort insulin lispro 100 unit/mL 10 unit subcut TIDCM 01/14/24 Unknown History subcutaneous pen (Humalog KwikPen (U-100) Insulin) gabapentin 100 mg capsule 200 mg PO QHS 05/06/24 05/05/24 History ropinirole 2 mg tablet 2 mg PO DAILY 05/06/24 05/05/24 History sertraline 100 mg tablet 100 mg PO DAILY 05/06/24 05/05/24 History suvorexant 10 mg tablet (Belsomra) 10 mg PO QHS 05/06/24 05/05/24 History tacrolimus 0.5 mg capsule, 0.5 mg PO Q12H 05/06/24 05/05/24 History immediate-release torsemide 20 mg tablet 60 mg PO .QAM 05/06/24 05/05/24 History vitamin B complex-vitamin C-folic 1 tab PO DAILY 05/06/24 05/05/24 History acid 0.8 mg tablet (Danae-Chet) hydrocodone-acetaminophen 5-325mg 1 tab PO BID PRN 07/01/24 Unknown History 5mg-325mg suvorexant 10 mg tablet (Belsomra) 10 mg PO QHS 07/01/24 Unknown History doxycycline hyclate 100 mg capsule 100 mg PO BID #14 caps 07/20/24 Unknown Rx Allergy/AdvReac Type Severity Reaction Status Date / Time amlodipine (From [facility]) Allergy Severe Hives Verified 07/22/24 21:04 ampicillin sodium (From Allergy Severe Hives Verified 07/22/24 21:04 Unasyn) buspirone HCl (From BuSpar) Allergy Severe Hives Verified 07/22/24 21:04 cefadroxil (From Duricef) Allergy Severe Hives Verified 07/22/24 21:04 lisinopril Allergy Severe Swelling Verified 07/22/24 21:04 naproxen Allergy Severe Hives Verified 07/22/24 21:04 niacin (From Niaspan Allergy Severe Hives Verified 07/22/24 21:04 Extended-Release) sulbactam sodium (From Allergy Severe Hives Verified 07/22/24 21:04 Unasyn) Sulfa (Sulfonamide Allergy Severe Hives Verified 07/22/24 21:04 Antibiotics) tramadol Allergy Mild Nausea Verified 07/22/24 21:04 cephalexin (From Keflex) Allergy Vomiting Verified 07/22/24 21:04 omeprazole AdvReac Severe Other Verified 07/22/24 21:04 losartan AdvReac Swelling Verified 07/22/24 21:04 Family History Mother Diabetes Anemia Father Hypertension LUNG/RESPIRATORY DISEASE Surgical History History of esophagogastroduodenoscopy (EGD) History of coronary artery stent placement History of cardiac catheterization History of appendectomy S/P arteriovenous (AV) fistula creation (~06/16/20) History of cholecystectomy History of left salpingo-oophorectomy History of radical hysterectomy History of left knee surgery History of ventral hernia repair History of liver transplant Social History housing: apartment current occupational status: disabled Smoking Status: Never smoker alcohol intake: never substance use type: does not use EXAM Physical Exam Const Vital Signs: 07/22/24 21:04 07/22/24 21:04 07/22/24 22:58 Temperature 98.6 F 98.6 F Temperature Source Oral Pulse Rate 91 88 Respiratory Rate 18 18 Respiratory Effort Normal Non-Labored Respiratory Depth Normal Respiratory Pattern Normal Blood Pressure 152/57 H 142/74 H Blood Pressure Mean 88 96 Pulse Ox 99 99 99 Oxygen Delivery Method Room Air Room Air MDM MDM MDM Narrative Medical decision making narrative: 69-year-old female with extensive medical history including CKD, DM, HOFFMAN presents for evaluation of close head injury after mechanical fall. She has a posterior scalp hematoma with overlying abrasion. Otherwise no obvious traumatic injury. She is wheelchair-bound at baseline. She is not on anticoagulation. No LOC. Differential diagnosis includes but is not limited to closed head injury, concussion, intracranial bleed, scalp fracture, cervical spine fracture. CT head and neck ordered. Patient is unsure if she is up-to-date on tetanus, she would like to update this. Tetanus ordered. Abrasion cleaned with bacitracin applied per nursing staff. CT brain negative for acute intracranial abnormality. Superficial soft tissue swelling/hematoma overlying the left occipital. This is consistent with physical exam. CT of the cervical spine shows no acute fracture or dislocation. Patient has chronic degenerative changes. Patient was updated of all the results and the plan. Patient stable to discharge home. Follow-up with PCP. Return precautions explained. Impression: 1. Closed head injury 2. Scalp hematoma with abrasion 3. Mechanical fall Radiography Diagnostic Testing: Clinical Impression(s) from Imaging Studies Brain CT 07/22/24 22:00 IMPRESSION: No acute intracranial abnormalities. Superficial soft tissue swelling/hematoma overlying the left occiput. Reading Location: [id number] Cervical Sp[address] 07/22/24 22:00 IMPRESSION: No acute osseous abnormality. Reading Location: [id number] Discharge Plan Triage Chief Complaint: Fall ED Provider: Aureliano Ross Dx/Rx/DC Orders Clinical Impression: Closed head injury, Hematoma of scalp Instructions: ED Head Injury (Adult), ED Hematoma Prescriptions: No Action bisacodyl [Dulcolax (bisacodyl)] 10 mg suppository 10 mg [place] DAILY PRN (Reason: constipation) Qty: 30 0RF dicyclomine 10 mg capsule 10 mg PO DAILY PRN (Reason: abdominal discomfort) Rx Instructions: once a day for pain insulin lispro [Humalog KwikPen Insulin] 100 unit/mL insulin pen 10 unit subcut TIDCM Patient Comments: TAKES 14U IF NEEDS atorvastatin 40 mg tablet 40 mg PO QHS Qty: 30 2RF hydrocodone-acetaminophen 5-325 mg tablet 1 tab PO BID PRN Belsomra 10 mg tablet 10 mg PO QHS ascorbic acid (vitamin C) 500 MG tablet,chewable 1,000 mg PO DAILY Patient Comments: supplement cholecalciferol (vitamin D3) 1,000 UNIT tablet 1,000 unit PO BID Patient Comments: bone health ropinirole 1 mg tablet 1 mg PO DAILY Rx Instructions: 2MG IN AM AND 1MG PM vitamin B complex 1 EACH tablet 1 tablet PO DAILY sevelamer carbonate [Renvela] 800 MG tablet 2,400 mg PO TIDCM nitroglycerin 0.4 mg Tablet, Sublingual 0.4 mg sublingual Q5M PRN (Reason: Cardiac/Chest Pain) Qty: 30 0RF albuterol sulfate 1 PUFF inhaler 2 puff IH Q4H PRN PRN (Reason: Sob &/Or Wheezing) 30 Days Qty: 8.6 0RF Otezla 30 mg tablet 30 mg PO DAILY midodrine 10 mg tablet 10 mg PO MOWEFR PRN (Reason: hypotension) Patient Comments: ON HOLD FOR LAST 2-3 WEEKS Rx Instructions: afternoon levothyroxine 88 mcg tablet 88 mcg PO DAILY trazodone 100 mg tablet 100 mg PO QHS aspirin [Adult Aspirin Regimen] 81 mg tablet,delayed release (DR/EC) 81 mg PO DAILY carvedilol 12.5 mg tablet 6.25 mg PO BID pantoprazole 40 mg tablet,delayed release (DR/EC) 40 mg PO BID nystatin [Nyamyc] 100,000 unit/gram Powder 1 applic topical BID PRN PRN (Reason: SKIN) Protocol: *Topical Application Instructions APPLICATION INSTRUCTIONS: apply to abdominal folds torsemide 20 mg tablet 60 mg PO .QAM Patient Comments: [NO ORIGINAL SIG] ropinirole 2 mg tablet 2 mg PO DAILY Rx Instructions: 2MG IN AM AND 1MG PM Danae-Chet 0.8 mg tablet 1 tab PO DAILY gabapentin 100 mg capsule 200 mg PO QHS tacrolimus 0.5 mg capsule 0.5 mg PO Q12H Patient Comments: [NO ORIGINAL SIG] sertraline 100 mg tablet 100 mg PO DAILY Belsomra 10 mg tablet 10 mg PO QHS doxycycline hyclate 100 mg capsule 100 mg PO BID Qty: 14 0RF Primary Care Provider: Velia Archuleta Referrals: Velia Archuleta MD [Primary Care Provider] - 3-5 Days Activity Restrictions/Additional Instructions: Follow-up with primary care physician as needed. Monitor for signs of infection for the abrasion. Print Language: Hong Konger Disposition Disposition: Home, Self Care Discharge Date/Time: 07/22/24 23:17
[2024-07-22 22:58] VITALS: BP 142/74; PULSE 88; RESP 18; TEMP 37; O2SAT 99
== END 2024-07-22 23:17 | disposition home or self-care (01) ==
PROVIDERS: Emergency Provider Surgery; PCP Internal Medicine; Referring Provider Surgery; Visit Provider Surgery
DX: S00.03XA Contusion of scalp, initial encounter (principal); I12.0 Hypertensive chronic kidney disease with stage 5 chronic kidney disease or end stage renal disease; N18.6 End stage renal disease; Z94.4 Liver transplant status; J44.9 Chronic obstructive pulmonary disease, unspecified; E11.22 Type 2 diabetes mellitus with diabetic chronic kidney disease; Z79.4 Long term (current) use of insulin; W18.39XA Other fall on same level, initial encounter; S00.01XA Abrasion of scalp, initial encounter; R29.6 Repeated falls; Z95.5 Presence of coronary angioplasty implant and graft; Z99.3 Dependence on wheelchair; Z99.2 Dependence on renal dialysis; Z79.82 Long term (current) use of aspirin; Z79.899 Other long term (current) drug therapy; Z23 Encounter for immunization
CPT/HCPCS: 70450; 72125; 90471; 90715; 99284

== ENCOUNTER → 2024-09-16 | Outpatient (CLI) | payer MEDICARE, MEDICAID, SELFPAY ==
--- NOTE | 2024-09-16 14:30 | ART_ITS ---
Reason For Study Reason For Study: Ulcer Procedure A bilateral lower extremity continuous wave Doppler with analog waveform analysis,segmental pressures,and ankle brachial indexes without exercise. Left Segmental Pressures Left posterior tibial artery = 212mmHg. Left dorsalis pedis artery = 222mmHg. Left digit = 110 mmHg. The left dorsalis pedis waveforms are triphasic. The left posterior tibial artery waveforms are triphasic. Right Segmental Pressures Right brachial= 173mmHg. Right posterior tibial artery = >254mmHg. Right dorsalis pedis artery = 226mmHg. Right digit = 149 mmHg. The right dorsalis pedis waveforms are triphasic. The right posterior tibial artery waveforms are biphasic. Indices The right ankle brachial index by the dorsalis pedis is 1.31. The right ankle brachial index by the posterior tibial artery is NC. The right digital-brachial index is 0.86. The left ankle brachial index by the dorsalis pedis is 1.28. The left ankle brachial index by the posterior tibial artery is 1.24. The left digital-brachial index is 0.64. VL/Lower Ext Art Exam w/o Exercis Interpretation Summary Right TRU 1.31, normal. TBI and Doppler/PVR waveforms of the right leg normal a t rest. Left TRU 1.28, normal. Doppler/PVR waveforms of the left leg normal at rest. TB I diminished, pedal/digit disease vs spasm. Ordering Physician: Nikita Rivers Referring Physician: Velia Archuleta Performed By: Christine Shen RVT
== END | disposition home or self-care (01) ==
LOC: CVS 14:26
PROVIDERS: PCP Internal Medicine; Referring Provider Podiatrist Foot & Ankle Surgery; Visit Provider Podiatrist Foot & Ankle Surgery
DX: L97.522 Non-pressure chronic ulcer of other part of left foot with fat layer exposed (principal)
CPT/HCPCS: 93923

== ENCOUNTER 2024-10-29 13:41 | Inpatient (IN) | payer MEDICARE, MEDICAID, SELFPAY ==
[2024-10-29] VITALS (10 sets, daily range): BP systolic 145–163; BP diastolic 50–88; PULSE 75–98; RESP 14–18; TEMP 36.6–37.1; O2SAT 93–100; BMI 39.0; BMI 36.9
--- NOTE | 2024-10-29 14:54 | EDS_ITS ---
HPI HPI - GI History of Present Illness Chief Complaint: GI Bleed Informant: patient Narrative Narrative: Patient is a 69-year-old female with relatively complex medical history including prior liver transplants, end-stage renal disease on hemodialysis, diastolic heart failure, portal hypertension, type 2 diabetes mellitus and obstructive sleep apnea presenting for bright red blood per rectum. Patient states that she had some diarrhea last night and thought there was maybe some blood in it. This morning while she was at the [facility] and she felt some liquid come from her rectum and when she checked her underwear there is blood in there. She states she did not pass gas at this time. She states there was clots of blood. She had a bowel movement and had a large amount of blood come out. She has had some upper abdominal pain and some mild upset stomach denies any vomiting or feeling significantly nauseous. She last had dialysis yesterday. She is not on any blood thinners and does not receive heparin with her dialysis. She does take an 81 mg aspirin daily. Is currently on doxycycline for finger infection. No other complaints or concerns at this time. States she is feels tired right now but does not feel lightheaded or feels like she is going to pass out [facility] Medical History Pancytopenia Secondary amyloidosis Lytic bone lesion of left femur Hypokalemia Ankle sprain Contusion of right shoulder Contusion of right knee Cervical strain, acute History of subdural hematoma (post traumatic) Closed head injury Generalized weakness Ambulatory dysfunction Diabetes Dialysis patient Sleep apnea Easy bruising Restless legs Difficulty swallowing Dietary restriction History of ulceration Shortness of breath on exertion CPAP (continuous positive airway pressure) dependence Influenza A Sepsis Acute dyspnea Pneumonia Anxiety Depression Hypothyroidism Irregular heart beat Hypertension DVT (deep venous thrombosis) Multiple falls Uses wheelchair History of renal dialysis Osteoporosis Cirrhosis Non-smoker ESRD (end stage renal disease) Pancytopenia Chronic renal failure, stage 5 Infection involving suture with abscess Wears glasses Wears dentures Cancer Insulin dependent diabetes mellitus Anemia Hx of Krueger's palsy Back pain Gastric reflux COPD (chronic obstructive pulmonary disease) History of edema History of echocardiogram (~01/22/20) History of stress test (~12/07/19) Cardiology follow-up encounter [facility] History of uterine cancer Hypertension Anemia in chronic kidney disease Home Medications ?Medication ?Instructions ?Recorded ?Last Taken ?Type ascorbic acid (vitamin C) 500 mg 500 mg PO DAILY suppl ement 02/20/15 10/29/24 09:00 History chewable tablet cholecalciferol (vitamin D3) 25 1,000 unit PO BID supp lement 02/20/15 10/29/24 09:00 History mcg (1,000 unit) tablet vitamin B complex 1 tablet PO DAILY SUPPLEMENT 09/10/19 10/29/24 09:00 History ropinirole 1 mg tablet 1 mg PO QHS restless legs 10/29/24 21:00 History nitroglycerin 0.4 mg sublingual 0.4 mg sublingual Q5M PRN 04/29/21 Unknown Rx tablet Cardiac/Chest Pain #30 tabs albuterol sulfate 90 mcg/actuation 2 puff IH Q4H PRN P RN Sob &/Or 10/25/21 Unknown Rx aerosol inhaler Wheezing 30 days #8.6 grams apremilast 30 mg tablet (Otezla) 30 mg PO DAILY psoria sis 09/08/22 10/29/24 08:00 History levothyroxine 88 mcg tablet 88 mcg PO DAILY thyroid 10/29/24 06:00 H istory trazodone 100 mg tablet 100 mg PO QHS sleep 12/31/22 10/28/24 21:00 History aspirin 81 mg tablet,delayed 81 mg PO DAILY heart 01/0310/29/24 09:00 History release (Adult Aspirin Regimen) midodrine 10 mg tablet 10 mg PO MOWEFR PRN hypotens ion 04/15/23 05/04/24 History nystatin 100,000 unit/gram topical 1 applic topical BI D PRN PRN SKIN 07/01/23 Unknown History powder ([facility]) pantoprazole 40 mg tablet,delayed 40 mg PO BID gerd 10/29/24 09:00 History release atorvastatin 40 mg tablet 40 mg PO QHS cholesterol #30 tabs 01/14/24 10/28/24 21:00 Rx insulin lispro 100 unit/mL 10 unit subcut TIDCM Unknown History subcutaneous pen (Humalog KwikPen (U-100) Insulin) gabapentin 100 mg capsule 200 mg PO QHS neuropathy 07/2610/28/24 21:00 History ropinirole 2 mg tablet 2 mg PO DAILY retless leg 10/29/24 09:00 History sertraline 100 mg tablet 100 mg PO DAILY anxiety and 05/06/24 10/29/24 09:00 History depression suvorexant 10 mg tablet (Belsomra) 10 mg PO QHS sleep 05/06/24 05/05/24 History tacrolimus 0.5 mg capsule, 0.5 mg PO Q12H antirejectio n 05/06/24 10/29/24 09:00 History immediate-release vitamin B complex-vitamin C-folic 1 tab PO DAILY suppl ement 05/06/24 10/29/24 09:00 History acid 0.8 mg tablet (Danae-Chet) hydrocodone-acetaminophen 5-325mg 1 - 2 tab PO BID PRN pain 07/01/24 10/28/24 21:00 History 5mg-325mg suvorexant 10 mg tablet (Belsomra) 10 mg PO QHS sleep 07/01/24 10/28/24 21:00 History calcium acetate(phosphat bind) 667 2,001 mg PO TID sup plement 10/29/24 10/29/24 13:00 History mg capsule carvedilol 6.25 mg tablet 6.25 mg PO BID BP 10/29/24 0 10/28/24 21:00 History doxycycline monohydrate 100 mg 100 mg PO BID finger wo unds 10/29/24 10/29/24 09:00 History capsule Allergy/AdvReac Type Severity Reaction Status Date / Time amlodipine (From Norvasc) Allergy Severe Hives Verified 10/29/24 13:43 ampicillin sodium (From Allergy Severe Hives Verified 10/29/24 13:43 Unasyn) buspirone HCl (From BuSpar) Allergy Severe Hives Verified 10/29/24 13:43 cefadroxil (From Duricef) Allergy Severe Hives Verified 10/29/24 13:43 lisinopril Allergy Severe Swelling Verified 10/29/24 13:43 naproxen Allergy Severe Hives Verified 10/29/24 13:43 niacin (From Niaspan Allergy Severe Hives Verified 10/29/24 13:43 Extended-Release) sulbactam sodium (From Allergy Severe Hives Verified 10/29/24 13:43 Unasyn) Sulfa (Sulfonamide Allergy Severe Hives Verified 10/29/24 13:43 Antibiotics) tramadol Allergy Mild Nausea Verified 10/29/24 13:43 cephalexin (From Keflex) Allergy Vomiting Verified 10/29/24 13:43 omeprazole AdvReac Severe Other Verified 10/29/24 13:43 losartan AdvReac Swelling Verified 10/29/24 13:43 Family History Mother Diabetes Anemia Father Hypertension LUNG/RESPIRATORY DISEASE Surgical History History of esophagogastroduodenoscopy (EGD) History of coronary artery stent placement History of cardiac catheterization History of appendectomy S/P arteriovenous (AV) fistula creation (~06/16/20) History of cholecystectomy History of left salpingo-oophorectomy History of radical hysterectomy History of left knee surgery History of ventral hernia repair History of liver transplant Social History housing: apartment current occupational status: disabled Smoking Status: Never smoker alcohol intake: never substance use type: does not use ROS ROS ED Constitutional Constitutional ED: Denies chills or fever(s) Respiratory/Chest Respiratory/Chest: Denies cough Gastrointestinal Gastrointestinal: Reports abdominal pain, diarrhea and melena; Denies nausea or vomiting Musculoskeletal Musculoskeletal: Denies arthralgias or myalgias Integumentary Denies rash Neurologic Neurologic: Reports weakness; Denies headache(s) or paresthesias Hematologic/Lymphatic Hematologic/Lymphatic: Denies easy bleeding or easy bruising EXAM Physical Exam Const Vital Signs: 10/29/24 13:42 10/29/24 14:42 10/29/24 16:07 Temperature 98.7 F Temperature Source Oral Pulse Rate 82 75 98 Respiratory Rate 16 18 14 Blood Pressure 163/58 H 152/71 H 146/56 H Blood Pressure Mean 93 98 86 Pulse Ox 100 100 95 Oxygen Delivery Method Room Air Room Air 10/29/24 17:00 10/29/24 18:06 10/29/24 19:00 Temperature Temperature Source Pulse Rate 78 84 81 Respiratory Rate 14 14 18 Blood Pressure 145/78 H 146/88 H 149/58 H Blood Pressure Mean 100 107 88 Pulse Ox 98 98 93 Oxygen Delivery Method Room Air Room Air Room Air 10/29/24 19:07 Temperature 97.8 F Temperature Source Pulse Rate 81 Respiratory Rate 18 Blood Pressure 149/58 H Blood Pressure Mean 88 Pulse Ox 93 Oxygen Delivery Method Positive well nourished and well developed General Appearance ED: well developed and NAD; Negative for pallor HEENT Reports moist mucous membranes Eyes General Eye ED: Negative for pale conjunctiva Neck supple and no JVD Resp normal respiratory effort and clear to auscultation bilaterally Cardio regular rate and regular rhythm Cardio Narrative: Fistula of the left upper extremity with palpable thrill GI GI Narrative: Mild tenderness palpation epigastric and right upper quadrant. No peritoneal signs. No distention or fluid wave. On chaperoned rectal exam patient is not having external hemorrhoids. She does have some maroon-colored stool Auscultation: normoactive bowel sounds Palpation: soft Neuro moves all extremities and no sensory deficits noted Sensorium / Orientation: alert, oriented to person, oriented to place and oriented to time Psych mental status grossly normal and thought process normal Skin General Skin Exam: Negative for jaundice or pallor MDM MDM MDM Narrative Medical decision making narrative: Patient evaluated for blood in her stool today. On exam she does have signs of GI bleeding with or maroon-colored stool and tenderness in her upper abdomen. She does have a history of bleeding gastric ulcers as well as liver failure and prior liver transplant. Patient is hemodynamically stable at this time. Differential includes colitis, diverticular bleeding, brisk upper GI bleeding, coagulopathy, symptomatic anemia. Because of her history of upper GI bleeding she is given IV Protonix in the emergency room. CBC obtained shows stable hemoglobin but chronic pancytopenia with a white blood cell count of 2.3, hemoglobin 8.7 and platelet count of 71. Her PT/INR normal. Her CMP shows elevation of her BUN and creatinine consistent with end-stage renal disease but is otherwise normal. CT of abdomen pelvis is obtained to ensure she does not have signs of colitis specifically ischemic colitis. She already has an stage renal disease will give contrast. CT shows chronic changes of L2/L3 suggestive chronic osteomyelitis discitis otherwise negative. She does not have any acute infection. She does report some chronic pain and counseled that she will need to follow-up with this but do not think it is related to her GI symptoms today. No acute intra-abdominal/GI pathology is noted. Case is discussed with Dr. Friend given her complex medical/GI history. He is agreeable with admission but has no further acute recommendations at this time. Does think that she would benefit from monitoring given her medical complexity and setting of GI bleeding. Patient's Delio Blatchford bleeding score was 13 which suggest high risk GI bleeding likely to require medical intervention including transfusion endoscopy or surgery. I am in agreement with this. Lab Data Attestation: I reviewed the patient's lab results. Labs: Laboratory Results - last 24 hr 10/29/24 10/29/24 14:51 14:57 WBC 2.3 L RBC 2.93 L Hgb 8.7 L Hct 28.6 L MCV 97.6 MCH 29.7 MCHC 30.4 L RDW Std Deviation 68.6 H RDW Coeff of Tami 19.1 H Plt Count 71 L MPV 11.7 Immature Gran % (Auto) 1.700 H Neut % (Auto) 65.1 Lymph % (Auto) 19.0 Bladen % (Auto) 8.2 Eos % (Auto) 5.6 H Baso % (Auto) 0.4 Absolute Neuts (auto) 1.5 L Absolute Lymphs (auto) 0.44 L Nucleated RBC % 0 Differential Comment SCANNED Platelet Estimate MOD DEC Polychromasia 1+ Hypochromasia 1+ Anisocytosis 1+ Ovalocytes 1+ PT 13.5 INR 1.0 Sodium 135 Potassium 4.7 Chloride 95 L Carbon Dioxide 29.3 Anion Gap 11 BUN 31 H Creatinine 5.16 H Estim Creat Clear Calc 12.82 L Est GFR (MDRD) Non-Af 9 L BUN/Creatinine Ratio 6.0 L Glucose 156 H Lactic Acid 1.6 Calcium 9.9 Total Bilirubin 0.44 Direct Bilirubin 0.19 AST 21 ALT 14 Alkaline Phosphatase 124 H Total Protein 5.9 Albumin 3.3 L Globulin 2.5 Lipase 27 Blood Type AB NEGATIVE Antibody Screen NEGATIVE Radiography Diagnostic Testing: Clinical Impression(s) from Imaging Studies Abdomen/Pelvis CT 10/29/24 15:59 IMPRESSION: No acute abdominopelvic abnormalities. Splenomegaly. Chronic kidney disease. Chronic changes at L2-L3 suggestive of chronic osteomyelitis discitis. Correlate clinically. Reading Location: [facility] Management Discussion w/another healthcare provider: Hospitalist and [employer] Trammer Discharge Plan Dx/Rx/DC Orders Clinical Impression: GI (gastrointestinal bleed), Type 2 diabetes mellitus, Immunocompromised patient, S/P liver transplant, Chronic kidney disease with end stage renal failure on dialysis Disposition Disposition: Acute Care Hospital [facility] Discharge Date/Time: 10/29/24 20:34
[2024-10-29 15:14] LABS: Hematocrit 28.6 % (37-47); Hemoglobin 8.7 g/dL (12.0-15.0); Immature Granulocytes Count 0.040 X10^3/uL (0.0-0.0); Mean Corp Hgb Conc 30.4 g/dL (32-36); Mean Corpuscular Volume 97.6 fL (81-99); NRBC Flagged by Analyzer 0 % (0-5); POSITIVE COUNT YES; POSITIVE DIFFERENTIAL YES; POSITIVE MORPHOLOGY YES; RBC Distribution Width CV 19.1 % (11.6-14.6); RBC Distribution Width SD 68.6 fl (35.1-43.9); Red Blood Count 2.93 M/mm3 (4.2-5.4); White Blood Count 2.3 K/mm3 (4.4-11.0)
[2024-10-29 15:23] LABS: Differential Indicated SCAN CRITERIA MET
[2024-10-29 15:41] LABS: AST(SGOT) 21 U/L (<=31); Alanine Aminotransfer ALT/SGPT 14 U/L (<=34); Albumin, Serum 3.3 g/dL (3.4-4.8); Alkaline Phosphatase 124 U/L (35-104); Anion Gap 11 (5-15); BUN 31 mg/dL (4-19); BUN/Creat Ratio 6.0 RATIO (10-20); Bilirubin, Direct 0.19 mg/dL (0.00-0.30); Calcium,Total 9.9 mg/dL (7.6-11.0); Carbon Dioxide 29.3 mmol/L (21.0-32.0); Chloride 95 mmol/L (98-108); Estimated Creatinine Clearance 12.82 ml/min (50-250); Globulin 2.5 g/dL (2.2-4.2); Glucose 156 mg/dL (70-99); Lipase 27 U/L (13-75); Potassium 4.7 mmol/L (3.3-5.1)
--- NOTE | 2024-10-29 15:59 | CT_ITS ---
PROCEDURE: ABDOMEN/PELVIS W IV CONT ONLY 10/29/2024 REASON FOR EXAM: GI BLEED, UPPER ABD PAIN TECHNIQUE: ABDOMEN/PELVIS W IV CONT ONLY Coronal and Sagittal reconstruction series were provided. CONTRAST: Isovue 370 VOLUME: 99 ML One or more dose reduction techniques were used (e.g., Automated exposure control, adjustment of the mA and/or kV according to patient size, use of iterative reconstruction technique. RADIATION DOSE SUMMARY: CTDlvol: 31.09 mGy DLP: 1678.86 mGycm COMPARISON: CT 05/06/2024. FINDINGS: Lung bases: Moderate cardiomegaly. Atherosclerotic calcifications of the coronary arteries. Trace pericardial effusion. Liver: Unremarkable. Gallbladder: Status post cholecystectomy. Spleen: Splenomegaly, 19.2 cm. Pancreas: Unremarkable. Adrenals: Unremarkable. Kidneys: Kidneys are atrophic consistent with chronic medical disease. Punctate stones in the kidneys. No hydronephrosis. Bladder: Unremarkable. Limited evaluation due to streak artifact from metallic prosthesis. Reproductive Organs: Unremarkable. Bowel: No bowel wall thickening. No bowel obstruction. Appendix: Unremarkable. Lymph nodes: No lymphadenopathy. Vasculature: Atherosclerotic calcifications. No aneurysm. Peritoneum / Retroperitoneum: No free air or free fluid. Bones: Similar to CT scan 05/06/2024, sclerotic and lytic changes at the opposite endplates of L2-L3 can be consistent with old osteomyelitis discitis. Correlate clinically. CT/Abdomen/Pelvis W IV Cont ONLY IMPRESSION: No acute abdominopelvic abnormalities. Splenomegaly. Chronic kidney disease. Chronic changes at L2-L3 suggestive of chronic osteomyelitis discitis. Correla te clinically. Reading Location: [facility]
[2024-10-29 16:55] LABS: Mean Platelet Vol. 11.7 fl (6.2-12.0); Platelet Count 71 K/mm3 (150-450)
[2024-10-29 16:56] LABS: Differential Comment SCANNED
[2024-10-29 16:58] LABS: Anisocytosis 1+
[2024-10-29 16:59] LABS: Hypochromasia 1+; Polychromasia 1+
[2024-10-29] MEDS: Pantoprazole Sodium 80 MG in 0.9% Normal Saline (50mL Bag) 15 ML 420 MG IV BOLUS (17:47)
[2024-10-29 19:21] LABS: Prothrombin Time (Protime)PT. 13.5 SECONDS (11.7-14.9)
--- NOTE | 2024-10-29 19:25 | CASEMGMT ---
Care Management Face to Face with patient for initial transition planning/care coordination assessment in the ED.? This publications writer introduced self and role at [facility]. Patient alert and oriented. Patient willing to participate in assessment and is able to answer all questions appropriately.? Care providers, pharmacy, and demographics verified. Admitting Diagnosis: ?GI Bleed Other diagnosis history: ?prior liver transplant, hemodialysis, heart failure, hypertension, DM2 PCP: ?Geremias Specialists: ?Erasto Mcintosh Preferred Pharmacy: [facility] Insurance: ?[employer] Prescription Benefit: ?yes Living Will/HPOA: ?completed and on file LNOK: ? Living Arrangements: ?patient lives with in one story home, patient helps with dressing and getting in and out of shower.? Patient helps with IADLs, preforms most. Patient receives dialysis M/W/F from [facility]. Transportation: ? drives DME: ?shower chair, electric wheelchair, blood pressure cuff, pulse ox, bedside commode HHC: ?[facility] in past SNF/Rehab: ?[facility] and [facility] Resources: ?none Behavioral Health History: ?anxiety , on zoloft Patient goals: Patient wishes to discharge home, denies need for home health care at this time. Patient denies any further needs or concerns at this time. Disposition Plan: admission to acute; RN CM/SW to follow for discharge planning needs that may arise. Courtney Mena, PROGRAM PROJECT MANAGER, AVIATION SURVIVAL TECHNICIAN
--- NOTE | 2024-10-29 19:40 | PCM.HP.STD ---
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 In the ED temp 98.7, heart rate 82 and blood pressure 163/58, respiratory rate 16 pulse ox 100% on room air. CBC with a white blood cell count of 2.3 which appears to be around baseline and hemoglobin of 8.7 which is similar to other values earlier this year. BUN of 31 and a creatinine of 5.16, on chronic dialysis, liver profile with an alk phos 124 and albumin 3.3 otherwise no acute process, lipase of 27 and INR of 1. Fecal occult positive with patient having bruit and maroon stools mixed together with no bright red blood. Did have CT abdomen pelvis which showed no acute abdominal pelvic abnormalities, CT did note chronic changes at L2-L3 similar to a scan on 05/06/2024. Hospitalist contacted for admission. Patient evaluated at bedside, she reports she had been in her usual health and then last night she noted she had some liquid leak out of her rectum that was blood like and then today she was at the [facility] and suddenly felt wet and when she went to the bathroom there was blood with stool and blood clots. Possibly some vague abdominal pain but that was only noted after palpation, denies any nausea. Does note that she makes very little urine but when she does make it she feels like there is some burning and has felt that way for the past month. No other new or acute complaints. Denies any fevers at home. [facility] Medical History Pancytopenia Secondary amyloidosis Lytic bone lesion of left femur Hypokalemia Ankle sprain Contusion of right shoulder Contusion of right knee Cervical strain, acute History of subdural hematoma (post traumatic) Closed head injury Generalized weakness Ambulatory dysfunction Diabetes Dialysis patient Sleep apnea Easy bruising Restless legs Difficulty swallowing Dietary restriction History of ulceration Shortness of breath on exertion CPAP (continuous positive airway pressure) dependence Influenza A Sepsis Acute dyspnea Pneumonia Anxiety Depression Hypothyroidism Irregular heart beat Hypertension DVT (deep venous thrombosis) Multiple falls Uses wheelchair History of renal dialysis Osteoporosis Cirrhosis Non-smoker ESRD (end stage renal disease) Pancytopenia Chronic renal failure, stage 5 Infection involving suture with abscess Wears glasses Wears dentures Cancer Insulin dependent diabetes mellitus Anemia Hx of Krueger's palsy Back pain Gastric reflux COPD (chronic obstructive pulmonary disease) History of edema History of echocardiogram (~01/22/20) History of stress test (~12/07/19) Cardiology follow-up encounter [facility] [employer] History of uterine cancer Hypertension Anemia in chronic kidney disease Home Medications ?Medication ?Instructions ?Recorded ?Last Taken ?Type ascorbic acid (vitamin C) 500 mg 500 mg PO DAILY supplement 02/20/15 05/05/24 History chewable tablet cholecalciferol (vitamin D3) 25 1,000 unit PO BID supplement 02/20/15 05/05/24 History mcg (1,000 unit) tablet vitamin B complex 1 tablet PO DAILY SUPPLEMENT 09/10/19 05/05/24 History ropinirole 1 mg tablet 1 mg PO DAILY restless legs 05/23/20 05/05/24 History nitroglycerin 0.4 mg sublingual 0.4 mg sublingual Q5M PRN 04/29/21 Unknown Rx tablet Cardiac/Chest Pain #30 tabs albuterol sulfate 90 mcg/actuation 2 puff IH Q4H PRN PRN Sob &/Or 10/25/21 Unknown Rx aerosol inhaler Wheezing 30 days #8.6 grams apremilast 30 mg tablet (Otezla) 30 mg PO DAILY 09/08/22 05/05/24 History levothyroxine 88 mcg tablet 88 mcg PO DAILY 12/31/22 05/05/24 History trazodone 100 mg tablet 100 mg PO QHS 12/31/22 05/05/24 History aspirin 81 mg tablet,delayed 81 mg PO DAILY 01/28/23 05/05/24 History release (Adult Aspirin Regimen) midodrine 10 mg tablet 10 mg PO MOWEFR PRN hypotension 04/15/23 05/04/24 History nystatin 100,000 unit/gram topical 1 applic topical BID PRN PRN SKIN 07/01/23 Unknown History powder ([facility]) pantoprazole 40 mg tablet,delayed 40 mg PO BID 07/01/23 05/05/24 History release atorvastatin 40 mg tablet 40 mg PO QHS #30 tabs 01/14/24 05/05/24 Rx insulin lispro 100 unit/mL 10 unit subcut TIDCM 01/14/24 Unknown History subcutaneous pen (Humalog KwikPen (U-100) Insulin) gabapentin 100 mg capsule 200 mg PO QHS 05/06/24 05/05/24 History ropinirole 2 mg tablet 2 mg PO DAILY 05/06/24 05/05/24 History sertraline 100 mg tablet 100 mg PO DAILY 05/06/24 05/05/24 History suvorexant 10 mg tablet (Belsomra) 10 mg PO QHS 05/06/24 05/05/24 History tacrolimus 0.5 mg capsule, 0.5 mg PO Q12H 05/06/24 05/05/24 History immediate-release vitamin B complex-vitamin C-folic 1 tab PO DAILY 05/06/24 05/05/24 History acid 0.8 mg tablet (Danae-Chet) hydrocodone-acetaminophen 5-325mg 1 - 2 tab PO BID PRN pain 07/01/24 Unknown History 5mg-325mg suvorexant 10 mg tablet (Belsomra) 10 mg PO QHS 07/01/24 Unknown History calcium acetate(phosphat bind) 667 2,001 mg PO TID 10/29/24 Unknown History mg capsule carvedilol 6.25 mg tablet 6.25 mg PO BID 10/29/24 Unknown History doxycycline monohydrate 100 mg 100 mg PO BID finger wounds 10/29/24 Unknown History capsule Allergy/AdvReac Type Severity Reaction Status Date / Time amlodipine (From Norvasc) Allergy Severe Hives Verified 10/29/24 13:43 ampicillin sodium (From Allergy Severe Hives Verified 10/29/24 13:43 Unasyn) buspirone HCl (From BuSpar) Allergy Severe Hives Verified 10/29/24 13:43 cefadroxil (From Duricef) Allergy Severe Hives Verified 10/29/24 13:43 lisinopril Allergy Severe Swelling Verified 10/29/24 13:43 naproxen Allergy Severe Hives Verified 10/29/24 13:43 niacin (From Niaspan Allergy Severe Hives Verified 10/29/24 13:43 Extended-Release) sulbactam sodium (From Allergy Severe Hives Verified 10/29/24 13:43 Unasyn) Sulfa (Sulfonamide Allergy Severe Hives Verified 10/29/24 13:43 Antibiotics) tramadol Allergy Mild Nausea Verified 10/29/24 13:43 cephalexin (From Keflex) Allergy Vomiting Verified 10/29/24 13:43 omeprazole AdvReac Severe Other Verified 10/29/24 13:43 losartan AdvReac Swelling Verified 10/29/24 13:43 Family History Mother Diabetes Anemia Father Hypertension LUNG/RESPIRATORY DISEASE Surgical History History of esophagogastroduodenoscopy (EGD) History of coronary artery stent placement History of cardiac catheterization History of appendectomy S/P arteriovenous (AV) fistula creation (~06/16/20) History of cholecystectomy History of left salpingo-oophorectomy History of radical hysterectomy History of left knee surgery History of ventral hernia repair History of liver transplant Social History housing: apartment current occupational status: disabled Smoking Status: Never smoker alcohol intake: never substance use type: does not use ROS ROS Narrative General: Denies fever/chills HENT: Denies headache, denies stuffy nose, denies sore throat EYES: Denies changes in vision Resp: Denies cough, denies shortness of breath Cardiac: Denies chest pain GI: Denied abdominal pain but when palpating did note some tenderness more towards the epigastrium, blood in stool, denies nausea/vomiting : Minimal urination, possibly some burning when she does end up urinating Extremity: Chronic swelling MSK: Denies weakness Neuro: Denies any new numbness/tingling Heme: Denies any bleeding aside from the rectal bleeding Skin: Denies rashes Psychiatric: No complaints voiced Vital Signs Vital Signs Vital Signs: 10/29/24 13:42 10/29/24 14:42 10/29/24 16:07 Temperature 98.7 F Temperature Source Oral Pulse Rate 82 75 98 Respiratory Rate 16 18 14 Blood Pressure 163/58 H 152/71 H 146/56 H Blood Pressure Mean 93 98 86 Pulse Ox 100 100 95 Oxygen Delivery Method Room Air Room Air 10/29/24 17:00 10/29/24 18:06 10/29/24 19:00 Temperature Temperature Source Pulse Rate 78 84 81 Respiratory Rate 14 14 18 Blood Pressure 145/78 H 146/88 H 149/58 H Blood Pressure Mean 100 107 88 Pulse Ox 98 98 93 Oxygen Delivery Method Room Air Room Air Room Air 10/29/24 19:07 Temperature 97.8 F Temperature Source Pulse Rate 81 Respiratory Rate 18 Blood Pressure 149/58 H Blood Pressure Mean 88 Pulse Ox 93 Oxygen Delivery Method Weight Weight: 106.4 kg Body Mass Index (BMI) 39.0 Physical Exam Narrative General: Alert, oriented, no apparent distress HEENT: Atraumatic, normocephalic Eyes: Anicteric, normal conjunctiva, extraocular movements grossly intact Neck: Supple Respiratory: Slightly diminished at the bases but may impart be due to habitus, normal respiratory effort Cardiovascular: Regular rate and rhythm GI: Soft, a little bit of tenderness in mid abdomen without any rebound, guarding, rigidity, nondistended Extremities: Nonpitting lower extremity edema, has chronic lymphedema reports this is unchanged Musculoskeletal: Moving all extremities Neuro: No overt focal neurological deficits Skin: No rashes appreciated Psych: Cooperative Results Lab / Micro Data 10/29/24 14:57 10/29/24 14:57 Labs: Laboratory Results - last 24 hr 10/29/24 14:51: PT 13.5, INR 1.0 10/29/24 14:57: WBC 2.3 L, RBC 2.93 L, Hgb 8.7 L, Hct 28.6 L, MCV 97.6, MCH 29.7, MCHC 30.4 L, RDW Std Deviation 68.6 H, RDW Coeff of Tami 19.1 H, Plt Count 71 L, MPV 11.7, Immature Gran % (Auto) 1.700 H, Neut % (Auto) 65.1, Lymph % (Auto) 19.0, Otero % (Auto) 8.2, Eos % (Auto) 5.6 H, Baso % (Auto) 0.4, Absolute Neuts (auto) 1.5 L, Absolute Lymphs (auto) 0.44 L, Nucleated RBC % 0, Differential Comment SCANNED, Platelet Estimate MOD DEC, Polychromasia 1+, Hypochromasia 1+, Anisocytosis 1+, Ovalocytes 1+, Sodium 135, Potassium 4.7, Chloride 95 L, Carbon Dioxide 29.3, Anion Gap 11, BUN 31 H, Creatinine 5.16 H, Estim Creat Clear Calc 12.82 L, Est GFR (MDRD) Non-Af 9 L, BUN/Creatinine Ratio 6.0 L, Glucose 156 H, Lactic Acid 1.6, Calcium 9.9, Total Bilirubin 0.44, Direct Bilirubin 0.19, AST 21, ALT 14, Alkaline Phosphatase 124 H, Total Protein 5.9, Albumin 3.3 L, Globulin 2.5, Lipase 27, Blood Type AB NEGATIVE, Antibody Screen NEGATIVE Micro: Microbiology 10/29/24 15:26 Stool Stool Occult Blood (TOMASZ) - Final Occult Blood Positive Imaging Radiology Impression Abdomen/Pelvis CT 10/29/24 15:59 IMPRESSION: No acute abdominopelvic abnormalities. Splenomegaly. Chronic kidney disease. Chronic changes at L2-L3 suggestive of chronic osteomyelitis discitis. Correlate clinically. Reading Location: [facility] Assessment & Plan Assessment/Plan (1) GI (gastrointestinal bleed): PLAN: Plan # GI bleed -Patient with slight bleeding last night and then a significant amount of bleeding per rectum earlier today with clots - In the ED fecal occult positive -CT abdomen pelvis no acute process -Does have history of upper GI bleeds -IV PPI -Trend H&H -Clear liquid diet and n.p.o. at midnight -GI consult # Recent left finger infection -Remains on doxycycline -Reports it is significantly improved from before but is still on antibiotics -Will continue #Hx secondary amyloidosis -CT scan in the ED noted sclerotic and lytic changes at the opposite endplates of L2-L3 which could be consistent with old osteomyelitis discitis but was similar to scan 05/06/2024 -Patient was actually seen by oncology after the scan 05/06/2024 that she had multiple lesions in her skeleton and she was worked up for these as it was unclear if this could be metastatic disease or multiple myeloma -A proximal lesion on the femoral head ended up showing amyloid deposition and further workup revealed a beta-2 microglobulin consistent with secondary amyloidosis, she also had a bone marrow aspirate and biopsy June 2024 with no evidence of metastatic malignancy or plasma cell dyscrasias -It was determined that she has secondary amyloidosis, dialysis related amyloidosis with no further need to follow-up with hematology oncology #ESRD on HD -Consult nephrology -Renal diet once able to resume diet -Daily weights, I's and O's -Of note patient reports when she makes urine, will varying frequently, she feels like maybe there is some burning, will order UA and advised if she feels like she can urinate that we can get sample -No infectious or systemic symptoms and CT of abdomen obtained with no acute abnormalities # History of diastolic heart failure, chronic -Daily weights, I's and O's -Monitor fluid balance #GERD - PPI to be IV #Hx of CAD -w/ previous stenting - Will temporarily hold aspirin given GI bleed, resume as soon as able -Continue statin -Continue beta-taras as blood pressure allows # History of liver transplant -Does see Dr. Maurer in the GI office -Continue tacrolimus #Hypothyroidism -Continue Synthroid #RAUL -Continue home NIPPV if applicable #Depression/anxiety -Continue home medications #Type 2 diabetes mellitus -Glucose checks and sliding scale insulin - Holding scheduled lispro given patient on liquid diet and will be n.p.o. at midnight # Restless leg syndrome -continue patient's home medication regimen #DVT ppx: SCDs Thelma Ozuna MD Charges/Coding Visit Charges Inpatient E&M: 30015 Init Hosp L2
[2024-10-29 22:54] LABS: Hematocrit 27.6 % (37-47); Hemoglobin 8.3 g/dL (12.0-15.0)
[2024-10-29] MEDS: Cholecalciferol (VIT D3) 25 MCG TABLET (1,000 UNITS) PO (22:57)
[2024-10-29] MEDS: Pantoprazole Sodium 40 MG in 0.9% Normal Saline (100mL MB+) 100 ML 300 MG IV (22:58)
[2024-10-29] MEDS: 0.9% Normal Saline (250mL Bag) 250 ML 15 ML IV (23:07)
[2024-10-30] VITALS (28 sets, daily range): BP systolic 114–186; BP diastolic 48–133; PULSE 76–87; RESP 14–16; TEMP 36.7–37.1; O2SAT 96–100; BMI 36.4; BMI 35.7
--- NOTE | 2024-10-30 00:32 | CPS ---
PATIENT REFUSED PAP THERAPY FOR NIGHT TIME USE, STATED SHE DOES NOT WEAR PAP THERAPY FOR HER RAUL ANYMORE.
[2024-10-30 03:04] LABS: Hematocrit 24.5 % (37-47); Hemoglobin 7.3 g/dL (12.0-15.0); Immature Granulocytes Count 0.030 X10^3/uL (0.0-0.0); Mean Corp Hgb Conc 29.8 g/dL (32-36); Mean Corpuscular Volume 98.0 fL (81-99); Mean Platelet Vol. 11.9 fl (6.2-12.0); NRBC Flagged by Analyzer 0 % (0-5); POSITIVE COUNT YES; POSITIVE DIFFERENTIAL YES; POSITIVE MORPHOLOGY YES; Platelet Count 61 K/mm3 (150-450); RBC Distribution Width CV 18.8 % (11.6-14.6); RBC Distribution Width SD 67.9 fl (35.1-43.9); Red Blood Count 2.50 M/mm3 (4.2-5.4); White Blood Count 2.1 K/mm3 (4.4-11.0)
[2024-10-30 03:08] LABS: Differential Indicated SCAN CRITERIA MET
[2024-10-30 03:26] LABS: AST(SGOT) 22 U/L (<=31); Alanine Aminotransfer ALT/SGPT 12 U/L (<=34); Albumin, Serum 2.9 g/dL (3.4-4.8); Alkaline Phosphatase 98 U/L (35-104); Anion Gap 12 (5-15); BUN 34 mg/dL (4-19); BUN/Creat Ratio 5.9 RATIO (10-20); Calcium,Total 9.5 mg/dL (7.6-11.0); Carbon Dioxide 27.6 mmol/L (21.0-32.0); Chloride 95 mmol/L (98-108); Estimated Creatinine Clearance 11.10 ml/min (50-250); Globulin 2.4 g/dL (2.2-4.2); Glucose 94 mg/dL (70-99); Potassium 4.9 mmol/L (3.3-5.1)
[2024-10-30 03:48] LABS: Anisocytosis 1+
[2024-10-30 03:50] LABS: Basophilic Stippling RARE; Hypochromasia 1+; Polychromasia RARE
[2024-10-30 03:52] LABS: Differential Comment SCANNED
--- NOTE | 2024-10-30 08:56 | PCM.PN.HOSP ---
Subjective Subjective Resting comfortably, currently receiving a unit of blood Objective Data Objective Data Vital Signs: Vital Signs Temp Pulse Resp BP Pulse Ox O2 Del Method O2 Flow Rate 98.6 F 80 16 165/60 H 96 Room Air 2 10/30/24 08:44 10/30/24 08:44 10/30/24 08:44 10/30/24 08:44 10/30/24 08:44 10/30/24 08:00 10/30/24 07:54 Oxygen Flow Rate (L/min) 2 Oxygen Delivery Method Room Air Weight: 218 lb 14.704 oz Body Mass Index (BMI) 36.4 Intake & Output: Intake and Output for Last 24 Hours 10/29/24 10/30/24 10/31/24 03:59 03:59 03:59 Intake Total 435 / 435 400 / 400 Balance 435 / 435 400 / 400 Lab / Micro Data 10/30/24 02:54 10/30/24 02:54 Labs: Laboratory Results - last 24 hr 10/29/24 14:51: PT 13.5, INR 1.0 10/29/24 14:57: WBC 2.3 L, RBC 2.93 L, Hgb 8.7 L, Hct 28.6 L, MCV 97.6, MCH 29.7, MCHC 30.4 L, RDW Std Deviation 68.6 H, RDW Coeff of Tami 19.1 H, Plt Count 71 L, MPV 11.7, Immature Gran % (Auto) 1.700 H, Neut % (Auto) 65.1, Lymph % (Auto) 19.0, Zavala % (Auto) 8.2, Eos % (Auto) 5.6 H, Baso % (Auto) 0.4, Absolute Neuts (auto) 1.5 L, Absolute Lymphs (auto) 0.44 L, Nucleated RBC % 0, Differential Comment SCANNED, Platelet Estimate MOD DEC, Polychromasia 1+, Hypochromasia 1+, Anisocytosis 1+, Ovalocytes 1+, Sodium 135, Potassium 4.7, Chloride 95 L, Carbon Dioxide 29.3, Anion Gap 11, BUN 31 H, Creatinine 5.16 H, Estim Creat Clear Calc 12.82 L, Est GFR (MDRD) Non-Af 9 L, BUN/Creatinine Ratio 6.0 L, Glucose 156 H, Lactic Acid 1.6, Calcium 9.9, Total Bilirubin 0.44, Direct Bilirubin 0.19, AST 21, ALT 14, Alkaline Phosphatase 124 H, Total Protein 5.9, Albumin 3.3 L, Globulin 2.5, Lipase 27, Blood Type AB NEGATIVE, Antibody Screen NEGATIVE, Crossmatch See Detail 10/29/24 21:39: POC Glucose 90 10/29/24 22:07: Hgb 8.3 L, Hct 27.6 L 10/30/24 00:27: POC Glucose 146 H 10/30/24 02:54: WBC 2.1 L, RBC 2.50 L, Hgb 7.3 L, Hct 24.5 L, MCV 98.0, MCH 29.2, MCHC 29.8 L, RDW Std Deviation 67.9 H, RDW Coeff of Tami 18.8 H, Plt Count 61 L, MPV 11.9, Immature Gran % (Auto) 1.400 H, Neut % (Auto) 61.9, Lymph % (Auto) 20.7, Zavala % (Auto) 9.4, Eos % (Auto) 6.1 H, Baso % (Auto) 0.5, Absolute Neuts (auto) 1.3 L, Absolute Lymphs (auto) 0.44 L, Nucleated RBC % 0, Differential Comment SCANNED, Platelet Estimate MOD DEC, Plt Morphology Comment LARGE, Polychromasia RARE, Hypochromasia 1+, Basophilic Stippling RARE, Anisocytosis 1+, Ovalocytes RARE, Sodium 135, Potassium 4.9, Chloride 95 L, Carbon Dioxide 27.6, Anion Gap 12, BUN 34 H, Creatinine 5.78 H, Estim Creat Clear Calc 11.10 L, Est GFR (MDRD) Non-Af 8 L, BUN/Creatinine Ratio 5.9 L, Glucose 94, Calcium 9.5, Total Bilirubin 0.45, AST 22, ALT 12, Alkaline Phosphatase 98, Total Protein 5.3 L, Albumin 2.9 L, Globulin 2.4, Albumin/Globulin Ratio 1.3 10/30/24 06:30: POC Glucose 76 Micro: Microbiology 10/29/24 15:26 Stool Stool Occult Blood (TOMASZ) - Final Occult Blood Positive Radiography Diagnostic Testing: Radiology Impression Abdomen/Pelvis CT 10/29/24 15:59 IMPRESSION: No acute abdominopelvic abnormalities. Splenomegaly. Chronic kidney disease. Chronic changes at L2-L3 suggestive of chronic osteomyelitis discitis. Correlate clinically. Reading Location: [facility] Physical Exam Narrative General: Alert, Oriented x3, Cooperative, No apparent distress HEENT: Atraumatic, PERRLA, EOMI, Normocephalic Oral: Moist Mucosa Neck: Supple, No JVD Lungs: Diminished, Normal air movement, No rhonchi, No wheeze, No rales Cardiovascular: Regular rate, Regular Rhythm, Normal S1, Normal S2, No murmurs Abdomen: Soft, Non Tender, Non-Distended, No Hepato-splenomegaly Extremities: Trace edema, Capillary Refill Less than 3 Seconds Skin: No rashes, No breakdown Musculoskeletal: No Tenderness to Palpation of Joints or Extremities Neurological: No focal neurological deficits, Motor Exam 5/5 strength throughout, Sensory exam intact to light touch and pain Psych/Mental Status: Normal Affect, Appropriate Assessment & Plan Assessment/Plan (1) GI (gastrointestinal bleed): PLAN: Plan 1. Acute blood loss anemia secondary to GI bleed/GERD ? Continue with transfusion ? CT of the abdomen pelvis on admission was unremarkable ? She does have a history of upper GI bleed in the past we will continue with PPI ? Plan for endoscopies by GI ? Continue with n.p.o. status ? Hemoglobin 7.3, will monitor and transfuse as necessary 2. Chronic diastolic CHF/CAD status post stent/essential HTN/HLD ? Blood pressures are stable ? Can resume her home medications ? Will monitor make adjustments as necessary 3. DM2/end-stage renal disease on hemodialysis ? Appreciate nephrology's assistance ? Continue with dialysis ? Accu-Cheks ? Sign scale insulin ? Will monitor and make adjustments as necessary 4. Recent left finger infection ? Continue with Doxy 5. History of amyloidosis ? Follow-up with oncology as an outpatient 6. History of liver transplant ? Currently on tacrolimus which we will continue ? Outpatient follow-up 7. Hypothyroidism ? Stable ? Continue with Synthroid 8. Anxiety/depression ? Stable ? Continue with medications DVT: SCDs Charges/Coding Visit Charges Inpatient E&M: 36390 Subs Hosp L2
[2024-10-30] MEDS: PureFlow B 2K Dialysis Soln 1 BAG 6 BAG PF (09:47)
[2024-10-30] MEDS: 0.9% Normal Saline 1,000 ML IV.SOLN. 1000 ML OPERA.SITE (09:47)
[2024-10-30] MEDS: Pantoprazole Sodium 40 MG in 0.9% Normal Saline (100mL MB+) 100 ML 300 MG IV ×2 (11:00→21:55)
--- NOTE | 2024-10-30 11:09 | PCM.CONS.R ---
Assessment & Plan Assessment/Plan (1) End stage renal disease on dialysis: PLAN: On hemodialysis. Seen on dialysis today, see orders/flowsheets. GI bleed. Bright red bleeding per rectum as per patient when she had diarrhea. Management as per primary/GI Anemia. In general she runs a resistant anemia. She is on maximum dose of HSAYE and we have rotated around different SHAYE's in the past. Usually once hemoglobin around 9 or so despite all this. Likely related to other comorbidities. HPI Consult Data Date of Consult: 10/30/24 HPI Narrative Reason for Consultation: ESRD HPI Narrative: CHRISTINA KUO, is a 69 F who presents To the hospital with what appears to be lower GI bleed. Nephrology on consultation in view of ESRD. ESRD on hemodialysis Saturday, Saturday, Saturday schedule. Apparently had diarrhea yesterday and saw bright red blood in the stool. Gastroenterology is on consult. She has no known history of amyloidosis, somewhat resistant anemia, she is on maximum dose of SHAYE and still runs hemoglobin around 9 or so. She has been seen by hematology before. Currently denies any complaints, seen on dialysis today. [facility] Medical History Pancytopenia Secondary amyloidosis Lytic bone lesion of left femur Hypokalemia Ankle sprain Contusion of right shoulder Contusion of right knee Cervical strain, acute History of subdural hematoma (post traumatic) Closed head injury Generalized weakness Ambulatory dysfunction Diabetes Dialysis patient Sleep apnea Easy bruising Restless legs Difficulty swallowing Dietary restriction History of ulceration Shortness of breath on exertion CPAP (continuous positive airway pressure) dependence Influenza A Sepsis Acute dyspnea Pneumonia Anxiety Depression Hypothyroidism Irregular heart beat Hypertension DVT (deep venous thrombosis) Multiple falls Uses wheelchair History of renal dialysis Osteoporosis Cirrhosis Non-smoker ESRD (end stage renal disease) Pancytopenia Chronic renal failure, stage 5 Infection involving suture with abscess Wears glasses Wears dentures Cancer Insulin dependent diabetes mellitus Anemia Hx of Krueger's palsy Back pain Gastric reflux COPD (chronic obstructive pulmonary disease) History of edema History of echocardiogram (~01/22/20) History of stress test (~12/07/19) Cardiology follow-up encounter [facility] History of uterine cancer Hypertension Anemia in chronic kidney disease Home Medications ?Medication ?Instructions ?Recorded ?Last Taken ?Type ascorbic acid (vitamin C) 500 mg 500 mg PO DAILY supplement 02/20/15 10/29/24 09:00 History chewable tablet cholecalciferol (vitamin D3) 25 1,000 unit PO BID supplement 02/20/15 10/29/24 09:00 History mcg (1,000 unit) tablet vitamin B complex 1 tablet PO DAILY SUPPLEMENT 09/10/19 10/29/24 09:00 History ropinirole 1 mg tablet 1 mg PO QHS restless legs 05/23/20 10/29/24 21:00 History nitroglycerin 0.4 mg sublingual 0.4 mg sublingual Q5M PRN 04/29/21 Unknown Rx tablet Cardiac/Chest Pain #30 tabs albuterol sulfate 90 mcg/actuation 2 puff IH Q4H PRN PRN Sob &/Or 10/25/21 Unknown Rx aerosol inhaler Wheezing 30 days #8.6 grams apremilast 30 mg tablet (Otezla) 30 mg PO DAILY psoriasis 09/08/22 10/29/24 08:00 History levothyroxine 88 mcg tablet 88 mcg PO DAILY thyroid 12/31/22 10/29/24 06:00 History trazodone 100 mg tablet 100 mg PO QHS sleep 12/31/22 10/28/24 21:00 History aspirin 81 mg tablet,delayed 81 mg PO DAILY heart 01/28/23 10/29/24 09:00 History release (Adult Aspirin Regimen) midodrine 10 mg tablet 10 mg PO MOWEFR PRN hypotension 04/15/23 05/04/24 History nystatin 100,000 unit/gram topical 1 applic topical BID PRN PRN SKIN 07/01/23 Unknown History powder ([facility]) pantoprazole 40 mg tablet,delayed 40 mg PO BID gerd 07/01/23 10/29/24 09:00 History release atorvastatin 40 mg tablet 40 mg PO QHS cholesterol #30 tabs 01/14/24 10/28/24 21:00 Rx insulin lispro 100 unit/mL 10 unit subcut TIDCM 01/14/24 Unknown History subcutaneous pen (Humalog KwikPen (U-100) Insulin) gabapentin 100 mg capsule 200 mg PO QHS neuropathy 05/06/24 10/28/24 21:00 History ropinirole 2 mg tablet 2 mg PO DAILY retless leg 05/06/24 10/29/24 09:00 History sertraline 100 mg tablet 100 mg PO DAILY anxiety and 05/06/24 10/29/24 09:00 History depression suvorexant 10 mg tablet (Belsomra) 10 mg PO QHS sleep 05/06/24 05/05/24 History tacrolimus 0.5 mg capsule, 0.5 mg PO Q12H antirejection 05/06/24 10/29/24 09:00 History immediate-release vitamin B complex-vitamin C-folic 1 tab PO DAILY supplement 05/06/24 10/29/24 09:00 History acid 0.8 mg tablet (Danae-Chet) hydrocodone-acetaminophen 5-325mg 1 - 2 tab PO BID PRN pain 07/01/24 10/28/24 21:00 History 5mg-325mg suvorexant 10 mg tablet (Belsomra) 10 mg PO QHS sleep 07/01/24 10/28/24 21:00 History calcium acetate(phosphat bind) 667 2,001 mg PO TID supplement 10/29/24 10/29/24 13:00 History mg capsule carvedilol 6.25 mg tablet 6.25 mg PO BID BP 10/29/24 10/28/24 21:00 History doxycycline monohydrate 100 mg 100 mg PO BID finger wounds 10/29/24 10/29/24 09:00 History capsule Allergy/AdvReac Type Severity Reaction Status Date / Time amlodipine (From Norvasc) Allergy Severe Hives Verified 10/29/24 13:43 ampicillin sodium (From Allergy Severe Hives Verified 10/29/24 13:43 Unasyn) buspirone HCl (From BuSpar) Allergy Severe Hives Verified 10/29/24 13:43 cefadroxil (From Duricef) Allergy Severe Hives Verified 10/29/24 13:43 lisinopril Allergy Severe Swelling Verified 10/29/24 13:43 naproxen Allergy Severe Hives Verified 10/29/24 13:43 niacin (From Niaspan Allergy Severe Hives Verified 10/29/24 13:43 Extended-Release) sulbactam sodium (From Allergy Severe Hives Verified 10/29/24 13:43 Unasyn) Sulfa (Sulfonamide Allergy Severe Hives Verified 10/29/24 13:43 Antibiotics) tramadol Allergy Mild Nausea Verified 10/29/24 13:43 cephalexin (From Keflex) Allergy Vomiting Verified 10/29/24 13:43 omeprazole AdvReac Severe Other Verified 10/29/24 13:43 losartan AdvReac Swelling Verified 10/29/24 13:43 Family History Mother Diabetes Anemia Father Hypertension LUNG/RESPIRATORY DISEASE Surgical History History of esophagogastroduodenoscopy (EGD) History of coronary artery stent placement History of cardiac catheterization History of appendectomy S/P arteriovenous (AV) fistula creation (~06/16/20) History of cholecystectomy History of left salpingo-oophorectomy History of radical hysterectomy History of left knee surgery History of ventral hernia repair History of liver transplant Social History housing: apartment current occupational status: disabled Smoking Status: Never smoker alcohol intake: never substance use type: does not use ROS ROS Narrative negative except above Physical Exam Narrative Alert awake oriented x 3 no obvious distress no pallor no icterus no JVD s1s2 no murmurs lungs clear abdomen soft no organomegaly no edema Lab / Micro Data 10/30/24 02:54 10/30/24 02:54 Labs: Laboratory Results - last 24 hr 10/29/24 14:51: PT 13.5, INR 1.0 10/29/24 14:57: WBC 2.3 L, RBC 2.93 L, Hgb 8.7 L, Hct 28.6 L, MCV 97.6, MCH 29.7, MCHC 30.4 L, RDW Std Deviation 68.6 H, RDW Coeff of Tami 19.1 H, Plt Count 71 L, MPV 11.7, Immature Gran % (Auto) 1.700 H, Neut % (Auto) 65.1, Lymph % (Auto) 19.0, Barton % (Auto) 8.2, Eos % (Auto) 5.6 H, Baso % (Auto) 0.4, Absolute Neuts (auto) 1.5 L, Absolute Lymphs (auto) 0.44 L, Nucleated RBC % 0, Differential Comment SCANNED, Platelet Estimate MOD DEC, Polychromasia 1+, Hypochromasia 1+, Anisocytosis 1+, Ovalocytes 1+, Sodium 135, Potassium 4.7, Chloride 95 L, Carbon Dioxide 29.3, Anion Gap 11, BUN 31 H, Creatinine 5.16 H, Estim Creat Clear Calc 12.82 L, Est GFR (MDRD) Non-Af 9 L, BUN/Creatinine Ratio 6.0 L, Glucose 156 H, Lactic Acid 1.6, Calcium 9.9, Total Bilirubin 0.44, Direct Bilirubin 0.19, AST 21, ALT 14, Alkaline Phosphatase 124 H, Total Protein 5.9, Albumin 3.3 L, Globulin 2.5, Lipase 27, Blood Type AB NEGATIVE, Antibody Screen NEGATIVE, Crossmatch See Detail 10/29/24 21:39: POC Glucose 90 10/29/24 22:07: Hgb 8.3 L, Hct 27.6 L 10/30/24 00:27: POC Glucose 146 H 10/30/24 02:54: WBC 2.1 L, RBC 2.50 L, Hgb 7.3 L, Hct 24.5 L, MCV 98.0, MCH 29.2, MCHC 29.8 L, RDW Std Deviation 67.9 H, RDW Coeff of Tami 18.8 H, Plt Count 61 L, MPV 11.9, Immature Gran % (Auto) 1.400 H, Neut % (Auto) 61.9, Lymph % (Auto) 20.7, Barton % (Auto) 9.4, Eos % (Auto) 6.1 H, Baso % (Auto) 0.5, Absolute Neuts (auto) 1.3 L, Absolute Lymphs (auto) 0.44 L, Nucleated RBC % 0, Differential Comment SCANNED, Platelet Estimate MOD DEC, Plt Morphology Comment LARGE, Polychromasia RARE, Hypochromasia 1+, Basophilic Stippling RARE, Anisocytosis 1+, Ovalocytes RARE, Sodium 135, Potassium 4.9, Chloride 95 L, Carbon Dioxide 27.6, Anion Gap 12, BUN 34 H, Creatinine 5.78 H, Estim Creat Clear Calc 11.10 L, Est GFR (MDRD) Non-Af 8 L, BUN/Creatinine Ratio 5.9 L, Glucose 94, Calcium 9.5, Total Bilirubin 0.45, AST 22, ALT 12, Alkaline Phosphatase 98, Total Protein 5.3 L, Albumin 2.9 L, Globulin 2.4, Albumin/Globulin Ratio 1.3 10/30/24 06:30: POC Glucose 76 10/30/24 08:46: POC Glucose 83 10/30/24 10:10: POC Glucose 87 Micro: Microbiology 10/29/24 15:26 Stool Stool Occult Blood (TOMASZ) - Final Occult Blood Positive Imaging Radiology Impression Abdomen/Pelvis CT 10/29/24 15:59 IMPRESSION: No acute abdominopelvic abnormalities. Splenomegaly. Chronic kidney disease. Chronic changes at L2-L3 suggestive of chronic osteomyelitis discitis. Correlate clinically. Reading Location: [facility]
--- NOTE | 2024-10-30 13:19 | CASEMGMT ---
technical support manager to the patient room at this time to discuss DC planning. Patient states that she lives at home with her , who provides support. Patient states that she is not able to ambulate well at baseline. 6-Clicks: 13, PT is pending. Regarding discharge planning, the patient wishes to be discharged home and is interested in home healthcare. Pt denies SNF. Patient states that she would appreciate a skilled nurse, PT, and OT to come to the home. Patient states that she has a history of home health with [facility] and that they are the AO. Pt denies wanting to review a list of local in-network home healthcare agencies. Referral sent to [facility] via [facility] at this time. Patient also states that she goes to outpatient hemodialysis through [facility] in [place] every Saturday, Saturday, and Saturday. Patient states that [employer] provides transportation and picks her up at 6 AM. TC to [facility] and Shauna notified of admission. Patient also states that she thinks she is active with [facility] but is unaware of her morning caregiver. Telephone call to [facility] at this time. [facility] states the patient is not established with their services at this time. Patient denies any further questions or concerns. Tentative plan: Home with with skilled home healthcare with the continuation of outpatient dialysis. Patient is currently 98% on room air. CM to follow for any additional needs.
[2024-10-30] MEDS: Folic Acid/Vitamin B Comp W-C 1 Capsule 1 CAP PO (15:17)
--- NOTE | 2024-10-30 15:36 | CASEMGMT ---
[facility] states that they are able to accept the pt with SOC beginning early next week. Pt updated and is agreeable. Pt states that she feels safe returning home with her once medically ready with HHC and the continuation of OP HD. Pt denies further needs.
--- NOTE | 2024-10-30 17:25 | CON.PCM.GI_ITS ---
HPI Consult Data Date of Consult: 10/30/24 HPI Narrative Reason for Consultation: lower gi bleeding HPI Narrative: 66 F who presents secondary to blood in her stool.? 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 She presents here after developing abdominal pain in the mid epigastric area associated with multiple episodes of lower GI bleeding.? She recently underwent a stress test which was abnormal and resulted in a cardiac catheterization in which she underwent PTCA with 3 stents placed.? She is on aspirin and Plavix.? In the ED she was discovered to be normotensive and mildly tachycardic.? Her hemoglobin was 8. 5, platelet count 73 and white blood cell count of 2.9.? BUN/creatinine ratio is 27:2 0.5.? She does not make any urine.? She states on she went underwent an ultrasound because she had some vaginal bleeding as well as some bleeding from her rectum when she wipes only.? She does not know the reason results from this test.? Today she developed diarrhea, passing dark brown liquid with blood streaks within it.? She has a history of GI bleed and was admitted in April.? She had 2 lesions in her duodenum that were lasered. Patient does have history of chronic renal failure.? She normally has dialysis on Saturday, Saturday, Saturday.? She missed her dialysis on Saturday secondary to other testing that she was having performed. She underwent an upper endoscopy by myself several months ago and was discovered to have 2 bleeding Angiodysplastic lesions that were treated in her duodenum. I was consulted for GI bleed management. [facility] Medical History Pancytopenia Secondary amyloidosis Lytic bone lesion of left femur Hypokalemia Ankle sprain Contusion of right shoulder Contusion of right knee Cervical strain, acute History of subdural hematoma (post traumatic) Closed head injury Generalized weakness Ambulatory dysfunction Diabetes Dialysis patient Sleep apnea Easy bruising Restless legs Difficulty swallowing Dietary restriction History of ulceration Shortness of breath on exertion CPAP (continuous positive airway pressure) dependence Influenza A Sepsis Acute dyspnea Pneumonia Anxiety Depression Hypothyroidism Irregular heart beat Hypertension DVT (deep venous thrombosis) Multiple falls Uses wheelchair History of renal dialysis Osteoporosis Cirrhosis Non-smoker ESRD (end stage renal disease) Pancytopenia Chronic renal failure, stage 5 Infection involving suture with abscess Wears glasses Wears dentures Cancer Insulin dependent diabetes mellitus Anemia Hx of Krueger's palsy Back pain Gastric reflux COPD (chronic obstructive pulmonary disease) History of edema History of echocardiogram (~01/22/20) History of stress test (~12/07/19) Cardiology follow-up encounter [facility] History of uterine cancer Hypertension Anemia in chronic kidney disease Home Medications ?Medication ?Instructions ?Recorded ?Last Taken ?Type ascorbic acid (vitamin C) 500 mg 500 mg PO DAILY suppl ement 02/20/15 10/29/24 09:00 History chewable tablet cholecalciferol (vitamin D3) 25 1,000 unit PO BID supp lement 02/20/15 10/29/24 09:00 History mcg (1,000 unit) tablet vitamin B complex 1 tablet PO DAILY SUPPLEMENT 09/10/19 10/29/24 09:00 History ropinirole 1 mg tablet 1 mg PO QHS restless legs 10/29/24 21:00 History nitroglycerin 0.4 mg sublingual 0.4 mg sublingual Q5M PRN 04/29/21 Unknown Rx tablet Cardiac/Chest Pain #30 tabs albuterol sulfate 90 mcg/actuation 2 puff IH Q4H PRN P RN Sob &/Or 10/25/21 Unknown Rx aerosol inhaler Wheezing 30 days #8.6 grams apremilast 30 mg tablet (Otezla) 30 mg PO DAILY psoria sis 09/08/22 10/29/24 08:00 History levothyroxine 88 mcg tablet 88 mcg PO DAILY thyroid 10/29/24 06:00 History trazodone 100 mg tablet 100 mg PO QHS sleep 12/31/22 10/28/24 21:00 History aspirin 81 mg tablet,delayed 81 mg PO DAILY heart 01/0310/29/24 09:00 History release (Adult Aspirin Regimen) midodrine 10 mg tablet 10 mg PO MOWEFR PRN hypotens ion 04/15/23 05/04/24 History nystatin 100,000 unit/gram topical 1 applic topical BI D PRN PRN SKIN 07/01/23 Unknown History powder ([facility]) pantoprazole 40 mg tablet,delayed 40 mg PO BID gerd 10/29/24 09:00 History release atorvastatin 40 mg tablet 40 mg PO QHS cholesterol #30 tabs 01/14/24 10/28/24 21:00 Rx insulin lispro 100 unit/mL 10 unit subcut TIDCM Unknown History subcutaneous pen (Humalog KwikPen (U-100) Insulin) gabapentin 100 mg capsule 200 mg PO QHS neuropathy 07/2610/28/24 21:00 History ropinirole 2 mg tablet 2 mg PO DAILY retless leg 10/29/24 09:00 History sertraline 100 mg tablet 100 mg PO DAILY anxiety and 05/06/24 10/29/24 09:00 History depression suvorexant 10 mg tablet (Belsomra) 10 mg PO QHS sleep 05/06/24 05/05/24 History tacrolimus 0.5 mg capsule, 0.5 mg PO Q12H antirejectio n 05/06/24 10/29/24 09:00 History immediate-release vitamin B complex-vitamin C-folic 1 tab PO DAILY suppl ement 05/06/24 10/29/24 09:00 History acid 0.8 mg tablet (Danae-Chet) hydrocodone-acetaminophen 5-325mg 1 - 2 tab PO BID PRN pain 07/01/24 10/28/24 21:00 History 5mg-325mg suvorexant 10 mg tablet (Belsomra) 10 mg PO QHS sleep 07/01/24 10/28/24 21:00 History calcium acetate(phosphat bind) 667 2,001 mg PO TID sup plement 10/29/24 10/29/24 13:00 History mg capsule carvedilol 6.25 mg tablet 6.25 mg PO BID BP 10/29/24 0 10/28/24 21:00 History doxycycline monohydrate 100 mg 100 mg PO BID finger wo unds 10/29/24 10/29/24 09:00 History capsule Allergy/AdvReac Type Severity Reaction Status Date / Time amlodipine (From Norvasc) Allergy Severe Hives Verified 10/29/24 13:43 ampicillin sodium (From Allergy Severe Hives Verified 10/29/24 13:43 Unasyn) buspirone HCl (From BuSpar) Allergy Severe Hives Verified 10/29/24 13:43 cefadroxil (From Duricef) Allergy Severe Hives Verified 10/29/24 13:43 lisinopril Allergy Severe Swelling Verified 10/29/24 13:43 naproxen Allergy Severe Hives Verified 10/29/24 13:43 niacin (From Niaspan Allergy Severe Hives Verified 10/29/24 13:43 Extended-Release) sulbactam sodium (From Allergy Severe Hives Verified 10/29/24 13:43 Unasyn) Sulfa (Sulfonamide Allergy Severe Hives Verified 10/29/24 13:43 Antibiotics) tramadol Allergy Mild Nausea Verified 10/29/24 13:43 cephalexin (From Keflex) Allergy Vomiting Verified 10/29/24 13:43 omeprazole AdvReac Severe Other Verified 10/29/24 13:43 losartan AdvReac Swelling Verified 10/29/24 13:43 Family History Mother Diabetes Anemia Father Hypertension LUNG/RESPIRATORY DISEASE Surgical History History of esophagogastroduodenoscopy (EGD) History of coronary artery stent placement History of cardiac catheterization History of appendectomy S/P arteriovenous (AV) fistula creation (~06/16/20) History of cholecystectomy History of left salpingo-oophorectomy History of radical hysterectomy History of left knee surgery History of ventral hernia repair History of liver transplant Social History housing: apartment current occupational status: disabled Smoking Status: Never smoker alcohol intake: never substance use type: does not use ROS Constitutional Constitutional: Denies fatigue, fever(s), poor appetite, weight gain or weight loss Gastrointestinal Gastrointestinal: Denies belching, bloating, change in bowel habits, change in stool character, chewing difficulty, coffee ground emesis, constipation, cramping, diarrhea, dyspepsia, dysphagia, early satiety, excessive flatus, fecal incontinence, heartburn, hematemesis, hematochezia, hemorrhoids, loose stools, melena, nausea, odynophagia, rectal bleeding, tenesmus, vomiting or weight changes Physical Exam Narrative Alert awake oriented x 3 no obvious distress no pallor no icterus no JVD s1s2 no murmurs lungs clear abdomen soft no organomegaly no edema Lab / Micro Data 10/30/24 02:54 10/30/24 02:54 Labs: Laboratory Results - last 24 hr 10/29/24 14:51: PT 13.5, INR 1.0 10/29/24 14:57: Crossmatch See Detail 10/29/24 21:39: POC Glucose 90 10/29/24 22:07: Hgb 8.3 L, Hct 27.6 L 10/30/24 00:27: POC Glucose 146 H 10/30/24 02:54: WBC 2.1 L, RBC 2.50 L, Hgb 7.3 L, Hct 24.5 L, MCV 98.0, MCH 29.2, MCHC 29.8 L, RDW Std Deviation 67.9 H, RDW Coeff of Tami 18.8 H, Plt Count 61 L, MPV 11.9, Immature Gran % (Auto) 1.400 H, Neut % (Auto) 61.9, Lymph % (Auto) 20.7, [place] % (Auto) 9.4, Eos % (Auto) 6.1 H, Baso % (Auto) 0.5, Absolute Neuts (auto) 1.3 L, Absolute Lymphs (auto) 0.44 L, Nucleated RBC % 0, Differential Comment SCANNED, Platelet Estimate MOD DEC, Plt Morphology Comment LARGE, Polychromasia RARE, Hypochromasia 1+, Basophilic Stippling RARE, Anisocytosis 1+, Ovalocytes RARE, Sodium 135, Potassium 4.9, Chloride 95 L, Carbon Dioxide 27.6, Anion Gap 12, BUN 34 H, Creatinine 5.78 H, Estim Creat Clear Calc 11.10 L, Est GFR (MDRD) Non-Af 8 L, BUN/Creatinine Ratio 5.9 L, Glucose 94, Calcium 9.5, Total Bilirubin 0.45, AST 22, ALT 12, Alkaline Phosphatase 98, Total Protein 5.3 L, Albumin 2.9 L, Globulin 2.4, Albumin/Globulin Ratio 1.3 10/30/24 06:30: POC Glucose 76 10/30/24 08:46: POC Glucose 83 10/30/24 10:10: POC Glucose 87 10/30/24 12:02: POC Glucose 95 10/30/24 16:41: POC Glucose 105 Micro: Microbiology 10/29/24 15:26 Stool Stool Occult Blood (TOMASZ) - Final Occult Blood Positive Assessment & Plan Assessment/Plan (1) GI (gastrointestinal bleed): PLAN: Given the complex history of a 69-year-old with ESRD, a liver transplant, and recurrent MORA cirrhosis, the lower GI bleeding is a critical, high- mortality event requiring immediate and aggressive management. The workup must differentiate between common causes of GI bleeding in the general population and those specific to advanced liver disease. Differential diagnosis * Recurrent portal hypertension-related bleeding:?The recurrent cirrhosis is the most likely [employer] company flatbed driver of re-elevated portal pressures, which can cause bleeding from: * Rectal or colonic varices:?Collateral vessels can form in the large intestine due to increased pressure and are a specific risk for lower GI bleeding in cirrhosis. * Portal hypertensive enteropathy or colopathy:?Increased pressure in the intestinal veins leads to mucosal changes, which can cause bleeding. While often less severe, it is a risk. * Hemorrhoids:?These are a very common cause of lower GI bleeding and are more likely to bleed in the setting of portal hypertension and coagulopathy. * ESRD-related bleeding:?Patients with ESRD are at a five times higher risk for gastrointestinal bleeding than the general population due to acquired bleeding diathesis and specific vascular lesions. * Angiodysplasia (vascular ectasias):?These small vascular malformations in the colon are the most common cause of lower GI bleeding in hemodialysis patients. * Uremic coagulopathy:?Kidney failure causes platelet dysfunction, which, when combined with liver-induced coagulopathy and potential anticoagulation use, can significantly increase bleeding risk. * Post-transplant complications:?While less likely years after surgery, certain complications can occur: * Ischemic colitis:?Recurrent cirrhosis may worsen existing vascular risk factors. Patients with cardiovascular disease are at risk for reduced mesenteric blood flow, causing bowel ischemia and bleeding. * Anastomotic bleeding:?Bleeding at a prior surgical connection point is a possibility, though less likely than from a source driven by the recurrent portal hypertension. * Other causes of lower GI bleeding:?In this older patient, more common causes must also be considered, including: * Diverticular disease:?This is a common cause of painless, large-volume bleeding in the elderly. * Colonic polyps or malignancy:?These can cause intermittent, lower-volume bleeding. * Inflammatory bowel disease:?The patient's history does not suggest it, but chronic inflammation could be a source.? Management plan 1. Initial stabilization and evaluation * Monitor the patient for any signs of re-bleeding, such as changes in vital signs or recurrence of hematochezia. * Assess hemodynamic status:?While bleeding has stopped, the patient's baseline is likely compromised. Check for orthostatic changes and volume status. * Perform laboratory workup: * Complete Blood Count (CBC): Her hemoglobin is up to 8.5 and a platelet count seems stable * Basic Metabolic Panel (BMP):?Kidney function is at baseline as she has instated himself needs * Liver Function Tests (LFTs):?She has not been seen in the office since [address] Maurer and at that time her MELD sodium was 24. Her current MELD sodium at this time is 16 * Coagulation panel (PT/INR):?Seems to be stable without any medication induced coagulopathy * * She takes vitamin C and aspirin which can contribute to prolonged bleeding time along with having decreased functional platelets from being end-stage renal disease patient. 2. Diagnostic and therapeutic interventions * Colonoscopy: * Timing:?Perform as soon as the patient is stable and a bowel prep can be tolerated. The goal is to identify the source of bleeding, even if it has stopped spontaneously. However her hemoglobin seems to be stable anesthesia will only allow for colonoscopy on the weekend if it is an emergency. * Procedure : potential sources like rectal varices, angiodysplasias, or diverticula. * Esophagogastroduodenoscopy : * Rationale:?Perform an EGD to rule out a brisk upper GI bleed, which can present as hematochezia. * Check for esophageal varices or portal hypertensive gastropathy. * Imaging studies: * CT angiography (CTA): Was negative for bleeding yesterday * Tagged red blood cell (RBC) scan:?If bleeding is intermittent or ongoing but slow, this nuclear medicine study can locate the general area of the bleed.? 3. Long-term management and follow-up * ?The management of both ESRD and recurrent cirrhosis is critical to prevent re-bleeding. * Portal hypertension:?Consider beta-blockers or a transjugular intrahepatic portosystemic shunt (TIPS) for refractory bleeding from varices.Carvedilol?is generally considered the preferred non-selective beta-taras (NSBB) for?cirrhosis?due to its superior efficacy in reducing portal pressure and improved outcomes compared to other NSBBs like?propranolol ?and?nadolol. It is safe in both compensated and decompensated cirrhosis, although care must be taken in advanced stages with ascites, low blood pressure, or kidney issues. However, carvedilol should be avoided in patients with ascites unless they also have hypertension * Renal disease:?She has been seen by nephrology * Secondary prophylaxis:?After the bleeding source is identified, develop a plan to prevent recurrence, which is common in this patient population. * Avoid offending agents:?The patient should continue to avoid NSAIDs and other medications that may increase bleeding risk. * Close follow-up:?Schedule regular follow-up with Dr. Maurer and the transplant team to monitor for signs of re-bleeding and progression of organ dysfunction.? T (2) History of liver transplant: (3) Secondary amyloidosis: (4) Lytic bone lesion of left femur: (5) Chronic anemia: (6) Thrombocytopenia: Charges/Coding Visit Charges Inpatient E&M: 26071 Init Hosp L3
[2024-10-30 17:32] LABS: Hemoglobin 8.5 g/dL (12.0-15.0)
[2024-10-30 17:33] LABS: Hematocrit 27.6 % (37-47)
[2024-10-30] MEDS: Cholecalciferol (VIT D3) 25 MCG TABLET (1,000 UNITS) PO (21:52)
[2024-10-30] MEDS: MELATONIN 10 MG TABLET PO (21:52)
[2024-10-30] MEDS: 0.9% Saline Lock 10 ML Syringe IV (21:55)
[2024-10-31 02:46] VITALS: BP 152/64; PULSE 78; RESP 15; TEMP 36.8; O2SAT 100
[2024-10-31 05:40] VITALS: BMI 35.7
[2024-10-31 06:55] LABS: Hematocrit 30.2 % (37-47); Hemoglobin 9.1 g/dL (12.0-15.0); Immature Granulocytes Count 0.050 X10^3/uL (0.0-0.0); Mean Corp Hgb Conc 30.1 g/dL (32-36); Mean Corpuscular Volume 96.2 fL (81-99); Mean Platelet Vol. 11.4 fl (6.2-12.0); NRBC Flagged by Analyzer 0 % (0-5); POSITIVE COUNT YES; POSITIVE DIFFERENTIAL YES; POSITIVE MORPHOLOGY YES; Platelet Count 80 K/mm3 (150-450); RBC Distribution Width CV 19.9 % (11.6-14.6); RBC Distribution Width SD 69.4 fl (35.1-43.9); Red Blood Count 3.14 M/mm3 (4.2-5.4); White Blood Count 2.9 K/mm3 (4.4-11.0)
[2024-10-31 06:56] LABS: Differential Indicated SCAN CRITERIA MET
[2024-10-31 07:34] LABS: Anisocytosis 2+
[2024-10-31 07:42] LABS: Anion Gap 11 (5-15); BUN 24 mg/dL (4-19); BUN/Creat Ratio 5.2 RATIO (10-20); Calcium,Total 9.8 mg/dL (7.6-11.0); Carbon Dioxide 24.4 mmol/L (21.0-32.0); Chloride 99 mmol/L (98-108); Estimated Creatinine Clearance 13.65 ml/min (50-250); Glucose 102 mg/dL (70-99); Potassium 4.6 mmol/L (3.3-5.1)
[2024-10-31 08:05] VITALS: BP 150/63; PULSE 77; RESP 18; TEMP 36.8; O2SAT 99
[2024-10-31] MEDS: Cholecalciferol (VIT D3) 25 MCG TABLET (1,000 UNITS) PO (08:14)
[2024-10-31] MEDS: Folic Acid/Vitamin B Comp W-C 1 Capsule 1 CAP PO (08:14)
[2024-10-31] MEDS: 0.9% Saline Lock 10 ML Syringe IV (10:23)
[2024-10-31] MEDS: Pantoprazole Sodium 40 MG in 0.9% Normal Saline (100mL MB+) 100 ML 300 MG IV (10:24)
--- NOTE | 2024-10-31 13:33 | DCINST_ITS ---
Discharge Instructions DC O2, CPAP, BIPAP needs Home O2 Discharge instructions: No Dressing / Incision Discharge Activity: Return to Normal Activity Dressing / Incision Call your doctor if you observe: Fever of 101 or Higher, Shortness of breath, Dizziness, Fainting spells, Swelling in the ankles, Chest pain and Increased palpitations (irregular heartbeat) Follow Up Care Test Results: Test results from this visit will be discussed in further detail at your follow- up appointment, if applicable. Discharge Plan Admission Admit Date/Time: 10/29/24 19:40 Attending Provider: Owen Armenta Primary Care Provider: Velia Archuleta Consulting Providers: Jignesh Maurer; Buck Lerner; Lisa Arguelles; Dian Leon; Wendy Ledbetter; Barrett Strickland; Thelma Ozuna Instructions Additional Instructions / Restrictions: Follow-up with your PCP in 3 to 5 days to monitor your hemoglobin Discharge Orders/Prescriptions Prescriptions: Continued insulin lispro [Humalog KwikPen Insulin] 100 unit/mL insulin pen 10 unit subcut TIDCM Patient Comments: TAKES 14U IF NEEDS atorvastatin 40 mg tablet 40 mg PO QHS Qty: 30 2RF hydrocodone-acetaminophen 5-325 mg tablet 1 - 2 tab PO BID PRN (Reason: pain) Belsomra 10 mg tablet 10 mg PO QHS cholecalciferol (vitamin D3) 1,000 UNIT tablet 1,000 unit PO BID Patient Comments: bone health ropinirole 1 mg tablet 1 mg PO QHS Rx Instructions: 2MG IN AM AND 1MG PM vitamin B complex 1 EACH tablet 1 tablet PO DAILY nitroglycerin 0.4 mg Tablet, Sublingual 0.4 mg sublingual Q5M PRN (Reason: Cardiac/Chest Pain) Qty: 30 0RF albuterol sulfate 1 PUFF inhaler 2 puff IH Q4H PRN PRN (Reason: Sob &/Or Wheezing) 30 Days Qty: 8.6 0RF Otezla 30 mg tablet 30 mg PO DAILY midodrine 10 mg tablet 10 mg PO MOWEFR PRN (Reason: hypotension) Rx Instructions: afternoon levothyroxine 88 mcg tablet 88 mcg PO DAILY trazodone 100 mg tablet 100 mg PO QHS pantoprazole 40 mg tablet,delayed release (DR/EC) 40 mg PO BID nystatin [Nyamyc] 100,000 unit/gram Powder 1 applic topical BID PRN PRN (Reason: SKIN) Protocol: *Topical Application Instructions APPLICATION INSTRUCTIONS: apply to abdominal folds carvedilol 6.25 mg tablet 6.25 mg PO BID doxycycline monohydrate 100 mg capsule 100 mg PO BID Patient Comments: started 10/26/24 calcium acetate(phosphat bind) 667 mg capsule 2,001 mg PO TID ropinirole 2 mg tablet 2 mg PO DAILY Rx Instructions: 2MG IN AM AND 1MG PM Danae-Chet 0.8 mg tablet 1 tab PO DAILY gabapentin 100 mg capsule 200 mg PO QHS tacrolimus 0.5 mg capsule 0.5 mg PO Q12H Patient Comments: pt takes 2 caps in am and 1 caps at hs sertraline 100 mg tablet 100 mg PO DAILY Belsomra 10 mg tablet 10 mg PO QHS Held aspirin [Adult Aspirin Regimen] 81 mg tablet,delayed release (DR/EC) 81 mg PO DAILY Hold Instructions: Resume on 11/03/24. Discontinued ascorbic acid (vitamin C) 500 MG tablet,chewable 500 mg PO DAILY Patient Comments: supplement Referrals / Follow Up: Velia Archuleta MD [Primary Care Provider] - Within 1 Week Buck Lrener DO [Med Staff - Active Staff] - Within 1 Month Disposition Disposition (needs filled in before D/C Order can be placed): Home, Self Care
[2024-10-31 14:37] LABS: Color, Urine Yellow (Yellow); Glucose, Dipstick Normal (Normal); Ketone-Dipstick Negative (Negative); Leukocyte Esterase-Dipstick 500 /ul (Negative); Mucous, Urine 0 SEEN /hpf (<or=2+); Nitrite-Dipstick Negative (Negative); Occult Blood-Urine 150 /ul (Negative); Protein-Dipstick 100 mg/dl (Negative); Specific Gravity, Urine 1.010 (1.002-1.030); Urine Bilirubin Dipstick Negative (Negative)
--- NOTE | 2024-10-31 14:42 | PCM.DC.SUM ---
Providers Date of Admission: 10/29/24 Primary Care Physician: Dr. Velia Archuleta MD Consultations 10/29/24 21:26 Consult: Gastroenterology Routine Consulting Provider: [facility] Reason for Consult: GI bleed EMERGENT Consult: No MD Notified: Yes Date Notified: 10/29/24 Time Notified: 20:18 Method of Notification: ED Physician Initiated Consult: Nephrology Routine Consulting Provider: Barrett Strickland Reason for Consult: esrd HD EMERGENT Consult: No Notified: Yes Date Notified: 10/30/24 Time Notified: 06:41 Method of Notification: Answering Service Reason For Visit: GI BLEED Diagnosis Discharge Diagnosis (1) GI (gastrointestinal bleed): Status: Acute Code(s): K92.2 - Gastrointestinal hemorrhage, unspecified (2) History of liver transplant: Status: Acute Code(s): Z94.4 - Liver transplant status (3) Secondary amyloidosis: Status: Chronic Code(s): E85.3 - Secondary systemic amyloidosis (4) 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 Code(s): M89.8X5 - Other specified disorders of bone, thigh (5) Chronic anemia: Status: Chronic Code(s): D64.9 - Anemia, unspecified (6) Thrombocytopenia: Status: Chronic Code(s): D69.6 - Thrombocytopenia, unspecified Medications at Discharge Home Medications cholecalciferol (vitamin D3) 25 mcg (1,000 unit) tablet 1,000 unit PO BID supplement 02/20/15 vitamin B complex 1 tablet PO DAILY SUPPLEMENT 09/10/19 ropinirole 1 mg tablet 1 mg PO QHS restless legs 05/23/20 nitroglycerin 0.4 mg sublingual tablet 0.4 mg sublingual Q5M PRN Cardiac/Chest Pain #30 tabs 04/29/21 albuterol sulfate 90 mcg/actuation aerosol inhaler 2 puff IH Q4H PRN PRN Sob &/Or Wheezing 30 days #8.6 grams 10/25/21 apremilast 30 mg tablet (Otezla) 30 mg PO DAILY psoriasis 09/08/22 levothyroxine 88 mcg tablet 88 mcg PO DAILY thyroid 12/31/22 trazodone 100 mg tablet 100 mg PO QHS sleep 12/31/22 aspirin 81 mg tablet,delayed release (Adult Aspirin Regimen) 81 mg PO DAILY heart 11/27/23 Held on 10/31/24. Instructions: Resume on 11/03/24. midodrine 10 mg tablet 10 mg PO MOWEFR PRN hypotension 04/15/23 nystatin 100,000 unit/gram topical powder (Nyamyc) 1 applic topical BID PRN PRN SKIN 07/01/23 atorvastatin 40 mg tablet 40 mg PO QHS cholesterol #30 tabs 01/14/24 insulin lispro 100 unit/mL subcutaneous pen (Humalog KwikPen (U-100) Insulin) 10 unit subcut TIDCM 01/14/24 gabapentin 100 mg capsule 200 mg PO QHS neuropathy 05/06/24 ropinirole 2 mg tablet 2 mg PO DAILY retless leg 05/06/24 sertraline 100 mg tablet 100 mg PO DAILY anxiety and depression 05/06/24 suvorexant 10 mg tablet (Belsomra) 10 mg PO QHS sleep 05/06/24 tacrolimus 0.5 mg capsule, immediate-release 0.5 mg PO Q12H antirejection 05/06/24 vitamin B complex-vitamin C-folic acid 0.8 mg tablet (Danae-Chet) 1 tab PO DAILY supplement 05/06/24 hydrocodone-acetaminophen 5-325mg 5mg-325mg 1 - 2 tab PO BID PRN pain 07/01/24 suvorexant 10 mg tablet (Belsomra) 10 mg PO QHS sleep 07/01/24 calcium acetate(phosphat bind) 667 mg capsule 2,001 mg PO TID supplement 10/29/24 carvedilol 6.25 mg tablet 6.25 mg PO BID BP 10/29/24 doxycycline monohydrate 100 mg capsule 100 mg PO BID finger wounds 10/29/24 pantoprazole 40 mg tablet,delayed release 40 mg PO BID gerd 30 days #60 tabs 10/31/24 Hospital Course Operations None Procedures None Summary of Care Provided Minutes Spent on Discharge: 33 Hospital Course: Per HPI: CHRISTINA KUO, is [id number] female history of liver transplant, end-stage renal disease on hemodialysis, diastolic heart failure, type 2 diabetes, RAUL, coronary artery disease with stenting, 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 In the ED temp 98.7, heart rate 82 and blood pressure 163/58, respiratory rate 16 pulse ox 100% on room air. CBC with a white blood cell count of 2.3 which appears to be around baseline and hemoglobin of 8.7 which is similar to other values earlier this year. BUN of 31 and a creatinine of 5.16, on chronic dialysis, liver profile with an alk phos 124 and albumin 3.3 otherwise no acute process, lipase of 27 and INR of 1. Fecal occult positive with patient having bruit and maroon stools mixed together with no bright red blood. Did have CT abdomen pelvis which showed no acute abdominal pelvic abnormalities, CT did note chronic changes at L2-L3 similar to a scan on 05/06/2024. Hospitalist contacted for admission. Patient evaluated at bedside, she reports she had been in her usual health and then last night she noted she had some liquid leak out of her rectum that was blood like and then today she was at the [facility] and suddenly felt wet and when she went to the bathroom there was blood with stool and blood clots. Possibly some vague abdominal pain but that was only noted after palpation, denies any nausea. Does note that she makes very little urine but when she does make it she feels like there is some burning and has felt that way for the past month. No other new or acute complaints. Denies any fevers at home. Hospital Course: 1. Acute blood loss anemia secondary to a GI bleed/GERD?69-year-old female with a history of liver transplant and previous GI bleeds presents to the hospital with maroon stools no obvious bright red blood per rectum. Unfortunately she ran out of the Protonix at home. She did have a hemoglobin of 7.3 so she was transfused 1 unit and she is now up to 9.1 today on the day of discharge. Unfortunately since we went to the holiday weekend no procedures were going to be done since she was stable and I discussed with her the possibility for discharged home with outpatient follow-up and she would prefer to go home today. She did express understanding of the risks and benefits of going home and would still like to go home today. I do recommend that she follow-up with her PCP in 3 to 5 days to monitor her hemoglobin. Will provide her prescription for Protonix as well. Will hold her aspirin for a few days on discharge as well, she does have a history of a heart stent but this was longer than a year ago. Of note on admission she did have a CT scan that demonstrated possible discitis however the findings were the exact same as they were on the CT scan on 05/06/2024 therefore no acute intervention was done, and is likely consistent with her amyloidosis. 2. Chronic diastolic CHF, coronary artery disease status post stent, essential hypertension, hyperlipidemia, type 2 diabetes, end-stage renal disease on hemodialysis, recent left finger infection on doxycycline, history of amyloidosis, history of liver transplant, hypothyroidism, anxiety, depression are all chronic medical conditions which complicate her care. Her home medications were continued where appropriate Physical Exam Narrative General: Alert, Oriented x3, Cooperative, No apparent distress HEENT: Atraumatic, PERRLA, EOMI, Normocephalic Oral: Moist Mucosa Neck: Supple, No JVD Lungs: Diminished, Normal air movement, No rhonchi, No wheeze, No rales Cardiovascular: Regular rate, Regular Rhythm, Normal S1, Normal S2, No murmurs Abdomen: Soft, Non Tender, Non-Distended, No Hepato-splenomegaly Extremities: Trace edema, Capillary Refill Less than 3 Seconds Skin: No rashes, No breakdown Musculoskeletal: No Tenderness to Palpation of Joints or Extremities Neurological: No focal neurological deficits, Motor Exam 5/5 strength throughout, Sensory exam intact to light touch and pain Psych/Mental Status: Normal Affect, Appropriate Weight / BMI Weight Weight: 214 lb 11.684 oz Body Mass Index (BMI) 35.7 ABG / Lab / Microbiology Data 10/31/24 06:14 10/31/24 06:14 Laboratory: Laboratory Results - last 24 hr 10/30/24 14:50: Hgb 8.5 L, Hct 27.6 L 10/30/24 16:41: POC Glucose 105 10/30/24 22:03: POC Glucose 121 H 10/31/24 06:14: WBC 2.9 L, RBC 3.14 L, Hgb 9.1 L, Hct 30.2 L, MCV 96.2, MCH 29.0, MCHC 30.1 L, RDW Std Deviation 69.4 H, RDW Coeff of Tami 19.9 H, Plt Count 80 L, MPV 11.4, Immature Gran % (Auto) 1.700 H, Neut % (Auto) 71.3 H, Lymph % (Auto) 14.7 L, [place] % (Auto) 7.5, Eos % (Auto) 4.5, Baso % (Auto) 0.3, Absolute Neuts (auto) 2.1, Absolute Lymphs (auto) 0.43 L, Nucleated RBC % 0, Platelet Estimate MOD DEC, Anisocytosis 2+, Ovalocytes 1+, Sodium 135, Potassium 4.6, Chloride 99, Carbon Dioxide 24.4, Anion Gap 11, BUN 24 H, Creatinine 4.62 H, Estim Creat Clear Calc 13.65 L, Est GFR (MDRD) Non-Af 10 L, BUN/Creatinine Ratio 5.2 L, Glucose 102 H, Calcium 9.8 10/31/24 06:24: POC Glucose 114 H 10/31/24 11:48: POC Glucose 141 H Microbiology: Microbiology 10/29/24 15:26 Stool Stool Occult Blood (TOMASZ) - Final Occult Blood Positive D/C Instructions Call your doctor if you observe: Fever of 101 or Higher, Shortness of breath, Dizziness, Fainting spells, Swelling in the ankles, Chest pain and Increased palpitations (irregular heartbeat) DC O2, CPAP, BIPAP Needs Home O2 Discharge instructions: No Meaningful Use Info Meaningful Use Meaningful Use Diagnoses (Choose all that apply): None applicable Discharge Plan Admission Admit Date/Time: 10/29/24 19:40 Attending Provider: Owen Armenta Primary Care Provider: Velia Archuleta Consulting Providers: Jignesh Maurer; Buck Lerner; Lisa Arguelles; Dian Leon; Wendy Ledbetter; Barrett Strickland; Thelma Ozuna Instructions Additional Instructions / Restrictions: Follow-up with your PCP in 3 to 5 days to monitor your hemoglobin Discharge Orders/Prescriptions Prescriptions: Continued insulin lispro [Humalog KwikPen Insulin] 100 unit/mL insulin pen 10 unit subcut TIDCM Patient Comments: TAKES 14U IF NEEDS atorvastatin 40 mg tablet 40 mg PO QHS Qty: 30 2RF hydrocodone-acetaminophen 5-325 mg tablet 1 - 2 tab PO BID PRN (Reason: pain) Belsomra 10 mg tablet 10 mg PO QHS cholecalciferol (vitamin D3) 1,000 UNIT tablet 1,000 unit PO BID Patient Comments: bone health ropinirole 1 mg tablet 1 mg PO QHS Rx Instructions: 2MG IN AM AND 1MG PM vitamin B complex 1 EACH tablet 1 tablet PO DAILY nitroglycerin 0.4 mg Tablet, Sublingual 0.4 mg sublingual Q5M PRN (Reason: Cardiac/Chest Pain) Qty: 30 0RF albuterol sulfate 1 PUFF inhaler 2 puff IH Q4H PRN PRN (Reason: Sob &/Or Wheezing) 30 Days Qty: 8.6 0RF Otezla 30 mg tablet 30 mg PO DAILY midodrine 10 mg tablet 10 mg PO MOWEFR PRN (Reason: hypotension) Rx Instructions: afternoon levothyroxine 88 mcg tablet 88 mcg PO DAILY trazodone 100 mg tablet 100 mg PO QHS nystatin [Nyamyc] 100,000 unit/gram Powder 1 applic topical BID PRN PRN (Reason: SKIN) Protocol: *Topical Application Instructions APPLICATION INSTRUCTIONS: apply to abdominal folds carvedilol 6.25 mg tablet 6.25 mg PO BID doxycycline monohydrate 100 mg capsule 100 mg PO BID Patient Comments: started 10/26/24 calcium acetate(phosphat bind) 667 mg capsule 2,001 mg PO TID pantoprazole 40 mg tablet,delayed release (DR/EC) 40 mg PO BID 30 Days Qty: 60 3RF ropinirole 2 mg tablet 2 mg PO DAILY Rx Instructions: 2MG IN AM AND 1MG PM Danae-Chet 0.8 mg tablet 1 tab PO DAILY gabapentin 100 mg capsule 200 mg PO QHS tacrolimus 0.5 mg capsule 0.5 mg PO Q12H Patient Comments: pt takes 2 caps in am and 1 caps at hs sertraline 100 mg tablet 100 mg PO DAILY Belsomra 10 mg tablet 10 mg PO QHS Held aspirin [Adult Aspirin Regimen] 81 mg tablet,delayed release (DR/EC) 81 mg PO DAILY Hold Instructions: Resume on 11/03/24. Discontinued ascorbic acid (vitamin C) 500 MG tablet,chewable 500 mg PO DAILY Patient Comments: supplement Referrals / Follow Up: Velia Archuleta MD [Primary Care Provider] - Within 1 Week Buck Lerner DO [Med Staff - Active Staff] - Within 1 Month Disposition Disposition (needs filled in before D/C Order can be placed): Home, Self Care Charges/Coding Visit Charges Inpatient E&M: 53054 Disch Hosp >30min
[2024-10-31 14:55] LABS: Red Blood Cells-Urine 0-5 SEEN /hpf (0-5); Squamous Epithelial Cells - UA 5-10 SEEN /hpf (5-10)
== END 2024-10-31 15:27 | disposition home or self-care (01) | DRG 377 ==
LOC: ED 19:42 → MS3 19:52
PROVIDERS: Admitting Provider Internal Medicine; Emergency Provider Emergency Medicine; PCP Internal Medicine; Visit Provider Family Medicine
DX: K92.2 Gastrointestinal hemorrhage, unspecified (principal); N18.6 End stage renal disease; I13.2 Hypertensive heart and chronic kidney disease with heart failure and with stage 5 chronic kidney disease, or end stage renal disease; D61.818 Other pancytopenia; E85.3 Secondary systemic amyloidosis; Z94.4 Liver transplant status; D62 Acute posthemorrhagic anemia; I50.32 Chronic diastolic (congestive) heart failure; D84.9 Immunodeficiency, unspecified; D69.6 Thrombocytopenia, unspecified; J44.9 Chronic obstructive pulmonary disease, unspecified; E11.22 Type 2 diabetes mellitus with diabetic chronic kidney disease; G25.81 Restless legs syndrome; E03.9 Hypothyroidism, unspecified; F32.A Depression, unspecified; Z99.2 Dependence on renal dialysis; K75.81 Nonalcoholic steatohepatitis (NASH); G47.33 Obstructive sleep apnea (adult) (pediatric); E78.5 Hyperlipidemia, unspecified; K21.9 Gastro-esophageal reflux disease without esophagitis; Z79.4 Long term (current) use of insulin; I25.10 Atherosclerotic heart disease of native coronary artery without angina pectoris; F41.9 Anxiety disorder, unspecified; Z86.718 Personal history of other venous thrombosis and embolism; Z79.890 Hormone replacement therapy; Z95.5 Presence of coronary angioplasty implant and graft; Z79.82 Long term (current) use of aspirin; Z90.49 Acquired absence of other specified parts of digestive tract; Z90.710 Acquired absence of both cervix and uterus; M89.8X5 Other specified disorders of bone, thigh; L03.012 Cellulitis of left finger
CPT/HCPCS: 36415; 74177; 80048; 80053; 80076; 81001; 82274; 82962; 83605; 83690; 85014; 85018; 85025; 85610; 86850; 86900; 86901; 87086; 87088; 90937; 97162; 97165; 97802; 99285; P9016; Q9967; A4216; G0257

== ENCOUNTER → 2024-11-09 | Outpatient (CLI) | payer MEDICARE, MEDICAID, SELFPAY ==
--- NOTE | 2024-11-09 11:30 | MRI_ITS ---
PROCEDURE: LOWER EXT/NO JT/W/O 11/09/2024 REASON FOR EXAM: RT LEG PAIN, PALPATE TENDER BACK-LATERAL THIGH TECHNIQUE: Procedure Code: [id number] Modality: MR Procedure: LOWER EXT/NO JT/W/O Multiplanar and multisequence images of the right thigh were obtained without IV contrast administration. COMPARISON: COMPARISON : AP pelvis view of 05/06/2024. FINDINGS: Skin markers are seen of the lateral proximal to mid thigh. Bone and bone Marrow: Limited imaging of the left hip demonstrates metallic artifact from a total hip prosthesis. Limited imaging of the right femoral head demonstrates subchondral cyst formation, deformity, marked joint narrowing. No abnormal osseous signal is otherwise noted. Effusion: Small bilateral knee joint effusions are otherwise seen. No hip joint effusion is evident. Soft Tissues: Patchy areas of bilateral subcutaneous edema are seen. Beneath the areas of skin marker, no soft tissue mass, free, or loculated fluid collection is seen. MRI/Lower Ext/No Jt/w/o IMPRESSION: 1. No soft tissue mass or free or loculated fluid collection is noted. 2. Patchy bilateral areas of subcutaneous edema are seen of the visualized bila teral thighs. 3. Bilateral knee joint effusions. 4. Limited imaging of the right hip again demonstrates significant degenerative changes and joint narrowing Reading Location: [place] [id number]
== END | disposition home or self-care (01) ==
LOC: MRI 11:10
PROVIDERS: PCP Internal Medicine; Referring Provider Anesthesiology; Visit Provider Anesthesiology
DX: M79.651 Pain in right thigh (principal)
CPT/HCPCS: 73718

== ENCOUNTER 2024-11-18 10:45 | Emergency (ER) | payer MEDICARE, MEDICAID, SELFPAY ==
[2024-11-18 10:46] VITALS: BP 124/69; PULSE 102; RESP 16; TEMP 36.3; O2SAT 99
--- NOTE | 2024-11-18 10:57 | EX.ED.DYSGE1 ---
HPI History of Present Illness Chief Complaint: Lower Extremity Injury Narrative Narrative: Patient is a 69-year-old female with past medical history of diabetes, end-stage renal disease on dialysis Saturday, hypothyroidism, pancytopenia who presented to the emergency department with chief complaint of right knee pain. Patient states that on Saturday of the past week she had a fall she states that EMS came out to her house picked her up and put her in her chair and left. States that the pain has been worsening since then and she is now unable to bear weight. She states that she is dialysis today and they stopped her dialysis session secondary to her knee pain and sent her to the emergency department to be further evaluated. [facility] Medical History Pancytopenia Secondary amyloidosis Lytic bone lesion of left femur Hypokalemia Ankle sprain Contusion of right shoulder Contusion of right knee Cervical strain, acute History of subdural hematoma (post traumatic) Closed head injury Generalized weakness Ambulatory dysfunction Diabetes Dialysis patient Sleep apnea Easy bruising Restless legs Difficulty swallowing Dietary restriction History of ulceration Shortness of breath on exertion CPAP (continuous positive airway pressure) dependence Influenza A Sepsis Acute dyspnea Pneumonia Anxiety Depression Hypothyroidism Irregular heart beat Hypertension DVT (deep venous thrombosis) Multiple falls Uses wheelchair History of renal dialysis Osteoporosis Cirrhosis Non-smoker ESRD (end stage renal disease) Pancytopenia Chronic renal failure, stage 5 Infection involving suture with abscess Wears glasses Wears dentures Cancer Insulin dependent diabetes mellitus Anemia Hx of Krueger's palsy Back pain Gastric reflux COPD (chronic obstructive pulmonary disease) History of edema History of echocardiogram (~01/22/20) History of stress test (~12/07/19) Cardiology follow-up encounter [employer] History of uterine cancer Hypertension Anemia in chronic kidney disease Home Medications ?Medication ?Instructions ?Recorded ?Last Taken ?Type cholecalciferol (vitamin D3) 25 1,000 unit PO BID supplement 02/20/15 10/29/24 09:00 History mcg (1,000 unit) tablet vitamin B complex 1 tablet PO DAILY SUPPLEMENT 09/10/19 10/29/24 09:00 History ropinirole 1 mg tablet 1 mg PO QHS restless legs 05/23/20 10/29/24 21:00 History nitroglycerin 0.4 mg sublingual 0.4 mg sublingual Q5M PRN 04/29/21 Unknown Rx tablet Cardiac/Chest Pain #30 tabs albuterol sulfate 90 mcg/actuation 2 puff IH Q4H PRN PRN Sob &/Or 10/25/21 Unknown Rx aerosol inhaler Wheezing 30 days #8.6 grams apremilast 30 mg tablet (Otezla) 30 mg PO DAILY psoriasis 09/08/22 10/29/24 08:00 History levothyroxine 88 mcg tablet 88 mcg PO DAILY thyroid 12/31/22 10/29/24 06:00 History trazodone 100 mg tablet 100 mg PO QHS sleep 12/31/22 10/28/24 21:00 History aspirin 81 mg tablet,delayed 81 mg PO DAILY heart 01/28/23 10/29/24 09:00 History release (Adult Aspirin Regimen) Held on 10/31/24. Instructions: Resume on 11/03/24. midodrine 10 mg tablet 10 mg PO MOWEFR PRN hypotension 04/15/23 05/04/24 History nystatin 100,000 unit/gram topical 1 applic topical BID PRN PRN SKIN 07/01/23 Unknown History powder ([facility]) atorvastatin 40 mg tablet 40 mg PO QHS cholesterol #30 tabs 01/14/24 10/28/24 21:00 Rx insulin lispro 100 unit/mL 10 unit subcut TIDCM 01/14/24 Unknown History subcutaneous pen (Humalog KwikPen (U-100) Insulin) gabapentin 100 mg capsule 200 mg PO QHS neuropathy 05/06/24 10/28/24 21:00 History ropinirole 2 mg tablet 2 mg PO DAILY retless leg 05/06/24 10/29/24 09:00 History sertraline 100 mg tablet 100 mg PO DAILY anxiety and 05/06/24 10/29/24 09:00 History depression suvorexant 10 mg tablet (Belsomra) 10 mg PO QHS sleep 05/06/24 05/05/24 History tacrolimus 0.5 mg capsule, 0.5 mg PO Q12H antirejection 05/06/24 10/29/24 09:00 History immediate-release vitamin B complex-vitamin C-folic 1 tab PO DAILY supplement 05/06/24 10/29/24 09:00 History acid 0.8 mg tablet (Danae-Chet) hydrocodone-acetaminophen 5-325mg 1 - 2 tab PO BID PRN pain 07/01/24 10/28/24 21:00 History 5mg-325mg suvorexant 10 mg tablet (Belsomra) 10 mg PO QHS sleep 07/01/24 10/28/24 21:00 History calcium acetate(phosphat bind) 667 2,001 mg PO TID supplement 10/29/24 10/29/24 13:00 History mg capsule carvedilol 6.25 mg tablet 6.25 mg PO BID BP 10/29/24 10/28/24 21:00 History doxycycline monohydrate 100 mg 100 mg PO BID finger wounds 10/29/24 10/29/24 09:00 History capsule pantoprazole 40 mg tablet,delayed 40 mg PO BID gerd 30 days #60 tabs 10/31/24 Unknown Rx release ondansetron 4 mg disintegrating 4 mg PO Q6H PRN nausea and 11/18/24 Unknown Rx tablet vomiting #20 tabs oxycodone-acetaminophen 5 mg-325 1 tab PO Q6H PRN pain 2 days #8 11/18/24 Unknown Rx mg tablet (Endocet) tabs Allergy/AdvReac Type Severity Reaction Status Date / Time amlodipine (From Norvasc) Allergy Severe Hives Verified 11/18/24 10:49 ampicillin sodium (From Allergy Severe Hives Verified 11/18/24 10:49 Unasyn) buspirone HCl (From BuSpar) Allergy Severe Hives Verified 11/18/24 10:49 cefadroxil (From Duricef) Allergy Severe Hives Verified 11/18/24 10:49 lisinopril Allergy Severe Swelling Verified 11/18/24 10:49 naproxen Allergy Severe Hives Verified 11/18/24 10:49 niacin (From Niaspan Allergy Severe Hives Verified 11/18/24 10:49 Extended-Release) sulbactam sodium (From Allergy Severe Hives Verified 11/18/24 10:49 Unasyn) Sulfa (Sulfonamide Allergy Severe Hives Verified 11/18/24 10:49 Antibiotics) tramadol Allergy Mild Nausea Verified 11/18/24 10:49 cephalexin (From Keflex) Allergy Vomiting Verified 11/18/24 10:49 omeprazole AdvReac Severe Other Verified 11/18/24 10:49 losartan AdvReac Swelling Verified 11/18/24 10:49 Family History Mother Diabetes Anemia Father Hypertension LUNG/RESPIRATORY DISEASE Surgical History History of esophagogastroduodenoscopy (EGD) History of coronary artery stent placement History of cardiac catheterization History of appendectomy S/P arteriovenous (AV) fistula creation (~06/16/20) History of cholecystectomy History of left salpingo-oophorectomy History of radical hysterectomy History of left knee surgery History of ventral hernia repair History of liver transplant Social History housing: apartment current occupational status: disabled Smoking Status: Never smoker alcohol intake: never substance use type: does not use ROS ROS ED ROS Narrative Neurological: Denies numbness, weakness, tingling Musculoskeletal: Complains of right knee pain Skin: Denies any rashes or lesions EXAM Physical Exam Narrative Exam Narrative: General: Patient was sitting in wheelchair at bedside complaining of right knee pain Head: Atraumatic, normocephalic Eyes: PERRL bilaterally, EOMI bilaterally, no conjunctival injection noted Neck: Soft, supple, trachea midline Cardiovascular: Patient tachycardic with a regular rhythm Musculoskeletal: Patient has tenderness to palpation of the right knee and the distal femur on the right side as well as the proximal tibia Extremities: DP pulses +2/4 in the right lower extremity, no pedal edema on exam Neurological: Patient follow commands that she was at [facility] year is 2024 Skin: Warm, dry, intact no rashes or lesions noted Const Vital Signs: 11/18/24 10:46 Temperature 97.3 F L Temperature Source Oral Pulse Rate 102 H Respiratory Rate 16 Blood Pressure 124/69 H Blood Pressure Mean 87 Pulse Ox 99 Oxygen Delivery Method Room Air MDM MDM MDM Narrative Medical decision making narrative: Patient is a 69-year-old female who presented to the emergency department chief complaint of right knee pain after a fall on Saturday. On the differential diagnose includes but not limited to distal femur fracture, tibial plateau fracture, joint effusion. Patient be given [place] and Zofran. She will be reevaluated. X-ray of her tibia/fibula reviewed by myself and by radiology showed soft tissue swelling no acute abnormalities noted. Patient x-ray of the knee reviewed by myself and by radiology which showed degenerative changes of the knee greatest of the patellofemoral compartment with [id number] at the lateral facet suprapatellar joint effusion. Patient's femur x-ray reviewed by myself by radiology showed degenerative osteoarthrosis no acute findings. On reevaluation the patient she is feeling better she would like to go home at this point time. Patient is requesting pain medication to go home with. She will be given a prescription for Endocet and Zofran. She was vies follow-up with her doctor in outpatient setting as well as her orthopedic surgeon in [place]. She is agreeable spinal course concerns answered she was discharged home in stable condition Radiography Diagnostic Testing: Clinical Impression(s) from Imaging Studies Femur X-Ray 11/18/24 11:34 IMPRESSION: DEGENERATIVE OSTEOARTHROSIS. NO ACUTE FINDINGS. Reading Location: [facility]- Knee X-Ray 11/18/24 11:34 IMPRESSION: Degenerative changes of the knee greatest of the patellofemoral compartment with [id number] at the lateral facet. Suprapatellar joint effusion. Reading Location: [id number] Tibia/Fibula X-Ray 11/18/24 11:34 IMPRESSION: Soft tissue swelling. No acute abnormality is seen. Reading Location: [facility]- Discharge Plan Triage Chief Complaint: Lower Extremity Injury ED Provider: Walter Vargas Dx/Rx/DC Orders Clinical Impression: Knee pain, right, Fall, Effusion, right knee, End stage renal disease on dialysis Prescriptions: New ondansetron 4 mg tablet,disintegrating 4 mg PO Q6H PRN (Reason: nausea and vomiting) Qty: 20 0RF oxycodone-acetaminophen [Endocet] 5-325 mg tablet 1 tab PO Q6H PRN (Reason: pain) 2 Days Qty: 8 0RF No Action insulin lispro [Humalog KwikPen Insulin] 100 unit/mL insulin pen 10 unit subcut TIDCM Patient Comments: TAKES 14U IF NEEDS atorvastatin 40 mg tablet 40 mg PO QHS Qty: 30 2RF hydrocodone-acetaminophen 5-325 mg tablet 1 - 2 tab PO BID PRN (Reason: pain) Belsomra 10 mg tablet 10 mg PO QHS cholecalciferol (vitamin D3) 1,000 UNIT tablet 1,000 unit PO BID Patient Comments: bone health ropinirole 1 mg tablet 1 mg PO QHS Rx Instructions: 2MG IN AM AND 1MG PM vitamin B complex 1 EACH tablet 1 tablet PO DAILY nitroglycerin 0.4 mg Tablet, Sublingual 0.4 mg sublingual Q5M PRN (Reason: Cardiac/Chest Pain) Qty: 30 0RF albuterol sulfate 1 PUFF inhaler 2 puff IH Q4H PRN PRN (Reason: Sob &/Or Wheezing) 30 Days Qty: 8.6 0RF Otezla 30 mg tablet 30 mg PO DAILY midodrine 10 mg tablet 10 mg PO MOWEFR PRN (Reason: hypotension) Rx Instructions: afternoon levothyroxine 88 mcg tablet 88 mcg PO DAILY trazodone 100 mg tablet 100 mg PO QHS aspirin [Adult Aspirin Regimen] 81 mg tablet,delayed release (DR/EC) 81 mg PO DAILY nystatin [Nyamyc] 100,000 unit/gram Powder 1 applic topical BID PRN PRN (Reason: SKIN) Protocol: *Topical Application Instructions APPLICATION INSTRUCTIONS: apply to abdominal folds carvedilol 6.25 mg tablet 6.25 mg PO BID doxycycline monohydrate 100 mg capsule 100 mg PO BID Patient Comments: started 10/26/24 calcium acetate(phosphat bind) 667 mg capsule 2,001 mg PO TID pantoprazole 40 mg tablet,delayed release (DR/EC) 40 mg PO BID 30 Days Qty: 60 3RF ropinirole 2 mg tablet 2 mg PO DAILY Rx Instructions: 2MG IN AM AND 1MG PM Danae-Chet 0.8 mg tablet 1 tab PO DAILY gabapentin 100 mg capsule 200 mg PO QHS tacrolimus 0.5 mg capsule 0.5 mg PO Q12H Patient Comments: pt takes 2 caps in am and 1 caps at hs sertraline 100 mg tablet 100 mg PO DAILY Belsomra 10 mg tablet 10 mg PO QHS Primary Care Provider: Velia Archuleta Referrals: Velia Archuleta MD [Primary Care Provider, Internal Medicine] Activity Restrictions/Additional Instructions: Use Tylenol for mild to moderate pain max dose Tylenol in 24 hours 4000 mg. Use the Percocet and the Zofran as prescribed do not operate anything under the influence this medication as it make you sleepy drowsy. Follow-up with your orthopedic surgeon in [place] that you followed up with your shoulder. Ice, elevate, return with worsening symptoms or any other concerns. Your x-rays did not show any broken bones. Print Language: [place]ian Disposition Disposition: Home, Self Care
[2024-11-18] MEDS: HYDROcodone Bitartrate/Apap 5/325 Tablet PO (11:09)
[2024-11-18 11:11] VITALS: BMI 35.6
--- NOTE | 2024-11-18 11:34 | RAD_ITS ---
PROCEDURE: FEMUR MIN 2 VIEWS 11/18/2024 REASON FOR EXAM: PAIN History of fall. TECHNIQUE: Procedure Code: RADFEM Modality: DX Procedure: FEMUR MIN 2 VIEWS Laterality: Right femur COMPARISON: None FINDINGS: Bones: No fracture seen. Joints: Marked degree of degenerative changes of the hip joint. Soft tissues: Soft tissue swelling. Vascular calcification. Other: RAD/Femur Min 2 Views IMPRESSION: DEGENERATIVE OSTEOARTHROSIS. NO ACUTE FINDINGS. Reading Location: [place] [id number]
--- NOTE | 2024-11-18 11:34 | RAD_ITS ---
PROCEDURE: TIBIA FIBULA 2 VIEWS 11/18/2024 REASON FOR EXAM: FALL Pain following a fall. TECHNIQUE: Procedure Code: RADTF Modality: DX Procedure: TIBIA FIBULA 2 VIEWS Laterality: Right tibia and fibula. COMPARISON: None FINDINGS: Bones: No acute fracture. Healed fracture of the distal fibula. Joints: Normal alignment at the knee and ankle. Soft tissues: Soft tissue swelling. Other: RAD/Tibia & Fibula 2 Views IMPRESSION: Soft tissue swelling. No acute abnormality is seen. Reading Location: [place] [id number]
--- NOTE | 2024-11-18 11:34 | RAD_ITS ---
PROCEDURE: KNEE 4 OR MORE VIEWS 11/18/2024 REASON FOR EXAM: FALL TECHNIQUE: Procedure Code: RADKN Modality: DX Procedure: KNEE 4 OR MORE VIEWS Laterality: Right COMPARISON: November 18, 2024 FINDINGS: Bones: Decreased bone mineralization. Joints: Moderate degenerative changes. This is greatest of the patellofemoral joint where there is [id number] at the lateral facet. Chondrocalcinosis of the medial and lateral menisci. Effusion: Suprapatellar joint effusion is present. Soft tissues: Mild edema. Atherosclerosis. RAD/Knee 4 or More Views IMPRESSION: Degenerative changes of the knee greatest of the patellofemoral compartment wit h [id number] at the lateral facet. Suprapatellar joint effusion. Reading Location: [id number]
[2024-11-18 13:51] VITALS: BP 134/60; PULSE 89; RESP 16; TEMP 36.7; O2SAT 100
== END 2024-11-18 13:53 | disposition home or self-care (01) ==
PROVIDERS: Emergency Provider Emergency Medicine; PCP Internal Medicine; Visit Provider Emergency Medicine
DX: M25.561 Pain in right knee (principal); D61.818 Other pancytopenia; N18.6 End stage renal disease; I12.0 Hypertensive chronic kidney disease with stage 5 chronic kidney disease or end stage renal disease; Z94.4 Liver transplant status; J44.9 Chronic obstructive pulmonary disease, unspecified; E11.22 Type 2 diabetes mellitus with diabetic chronic kidney disease; Z79.4 Long term (current) use of insulin; M25.461 Effusion, right knee; W19.XXXA Unspecified fall, initial encounter; Y92.019 Unspecified place in single-family (private) house as the place of occurrence of the external cause; Z99.2 Dependence on renal dialysis; D63.1 Anemia in chronic kidney disease; M17.11 Unilateral primary osteoarthritis, right knee; E03.9 Hypothyroidism, unspecified; F41.9 Anxiety disorder, unspecified; F32.A Depression, unspecified; M81.0 Age-related osteoporosis without current pathological fracture; K21.9 Gastro-esophageal reflux disease without esophagitis; G25.81 Restless legs syndrome; Z95.5 Presence of coronary angioplasty implant and graft; Z90.49 Acquired absence of other specified parts of digestive tract; Z85.41 Personal history of malignant neoplasm of cervix uteri; Z79.82 Long term (current) use of aspirin; Z79.899 Other long term (current) drug therapy; Z86.718 Personal history of other venous thrombosis and embolism; Z79.890 Hormone replacement therapy; Z90.710 Acquired absence of both cervix and uterus
CPT/HCPCS: 73552; 73564; 73590; 99283; A4216

== ENCOUNTER 2024-12-09 14:09 | Inpatient (IN) | payer MEDICARE, MEDICAID, SELFPAY ==
[2024-12-09] VITALS (11 sets, daily range): BP systolic 102–163; BP diastolic 47–64; PULSE 89–113; RESP 17–27; TEMP 36.9–39.6; O2SAT 95–99; BMI 38.0; BMI 37.2
[2024-12-09] MEDS: 0.9% Normal Saline (500mL Bag) 500 ML 1000 ML IV (14:47)
[2024-12-09 14:48] LABS: Hematocrit 35.9 % (37-47); Hemoglobin 10.9 g/dL (12.0-15.0); Immature Granulocytes Count 0.050 X10^3/uL (0.0-0.0); Mean Corp Hgb Conc 30.4 g/dL (32-36); Mean Corpuscular Volume 96.8 fL (81-99); Mean Platelet Vol. 10.8 fl (6.2-12.0); NRBC Flagged by Analyzer 0 % (0-5); POSITIVE COUNT YES; POSITIVE DIFFERENTIAL YES; Platelet Count 77 K/mm3 (150-450); RBC Distribution Width CV 18.6 % (11.6-14.6); RBC Distribution Width SD 64.5 fl (35.1-43.9); Red Blood Count 3.71 M/mm3 (4.2-5.4); White Blood Count 8.1 K/mm3 (4.4-11.0)
[2024-12-09 14:50] LABS: Prothrombin Time (Protime)PT. 14.6 SECONDS (11.7-14.9)
[2024-12-09 14:51] LABS: Partial Thromboplast Time 31.0 Seconds (24.1-36.2)
[2024-12-09 14:52] LABS: Mucous, Urine 0 SEEN /hpf (<or=2+)
[2024-12-09 15:10] LABS: AST(SGOT) 19 U/L (<=31); Alanine Aminotransfer ALT/SGPT 15 U/L (<=34); Albumin, Serum 3.3 g/dL (3.4-4.8); Alkaline Phosphatase 104 U/L (35-104); Anion Gap 11 (5-15); BUN 28 mg/dL (4-19); BUN/Creat Ratio 4.9 RATIO (10-20); Calcium,Total 9.6 mg/dL (7.6-11.0); Carbon Dioxide 28.6 mmol/L (21.0-32.0); Chloride 94 mmol/L (98-108); Estimated Creatinine Clearance 11.36 ml/min (50-250); Globulin 2.5 g/dL (2.2-4.2); Glucose 187 mg/dL (70-99); Potassium 5.4 mmol/L (3.3-5.1); Pro- Brain NATRIURETIC PEPTIDE 31895 pg/mL (<=900)
[2024-12-09 15:43] LABS: Color, Urine Yellow (Yellow); Glucose, Dipstick 100 mg/dl (Normal); Ketone-Dipstick Negative (Negative); Leukocyte Esterase-Dipstick 500 /ul (Negative); Nitrite-Dipstick Negative (Negative); Occult Blood-Urine 150 /ul (Negative); Protein-Dipstick 100 mg/dl (Negative); Specific Gravity, Urine 1.010 (1.002-1.030); Urine Bilirubin Dipstick Negative (Negative)
[2024-12-09 15:56] LABS: Red Blood Cells-Urine 5-10 SEEN /hpf (0-5)
[2024-12-09 16:06] LABS: Squamous Epithelial Cells - UA 0-5 SEEN /hpf (5-10)
[2024-12-09] MEDS: levoFLOXacin IV 750 MG/150 ML BAG 100 MG IV (16:07)
[2024-12-09] MEDS: Albuterol *CONC* 2.5mg/0.5mL VIAL.NEB. 10 MG INHALATION (16:40)
[2024-12-09] MEDS: Calcium Gluconate IV 3 GM in Syringe 1 EACH IV (16:48)
[2024-12-09 18:34] LABS: Reflex Lactate? Y
[2024-12-09] MEDS: Heparin Injection (Vial) 5,000 UNIT/ML VIAL 5000 UNIT SC (21:17)
[2024-12-10] VITALS (13 sets, daily range): BP systolic 93–157; BP diastolic 41–72; PULSE 73–98; RESP 14–18; TEMP 36.1–37.2; O2SAT 95–100; BMI 37.1; BMI 36.5
[2024-12-10 06:14] LABS: Hematocrit 29.0 % (37-47); Hemoglobin 8.9 g/dL (12.0-15.0); Immature Granulocytes Count 0.040 X10^3/uL (0.0-0.0); Mean Corp Hgb Conc 30.7 g/dL (32-36); Mean Corpuscular Volume 95.7 fL (81-99); Mean Platelet Vol. 11.6 fl (6.2-12.0); NRBC Flagged by Analyzer 0 % (0-5); POSITIVE COUNT YES; POSITIVE DIFFERENTIAL YES; POSITIVE MORPHOLOGY YES; Platelet Count 68 K/mm3 (150-450); RBC Distribution Width CV 18.7 % (11.6-14.6); RBC Distribution Width SD 65.4 fl (35.1-43.9); Red Blood Count 3.03 M/mm3 (4.2-5.4); White Blood Count 5.7 K/mm3 (4.4-11.0)
[2024-12-10 06:25] LABS: Anion Gap 11 (5-15); BUN 38 mg/dL (4-19); BUN/Creat Ratio 6.0 RATIO (10-20); Calcium,Total 9.3 mg/dL (7.6-11.0); Carbon Dioxide 25.3 mmol/L (21.0-32.0); Chloride 94 mmol/L (98-108); Estimated Creatinine Clearance 10.09 ml/min (50-250); Glucose 177 mg/dL (70-99); Potassium 5.2 mmol/L (3.3-5.1)
[2024-12-10 06:30] LABS: Differential Indicated SCAN CRITERIA MET
[2024-12-10 07:55] LABS: Differential Comment SCANNED
[2024-12-10] MEDS: SEVELAMER CARBONATE 800 MG TABLET PO ×2 (08:23→16:37)
[2024-12-10] MEDS: Heparin Injection (Vial) 5,000 UNIT/ML VIAL 5000 UNIT SC (10:57)
[2024-12-10] MEDS: PureFlow B 2K Dialysis Soln 1 BAG 6 BAG PF (12:29)
[2024-12-10] MEDS: 0.9% Normal Saline 1,000 ML IV.SOLN. 1000 ML OPERA.SITE (12:29)
[2024-12-11] VITALS (13 sets, daily range): BP systolic 96–152; BP diastolic 41–76; PULSE 70–89; RESP 14–16; TEMP 35.3–36.9; O2SAT 95–100; BMI 37.6; BMI 37.1; BMI 36.9
[2024-12-11 06:16] LABS: Hematocrit 29.6 % (37-47); Hemoglobin 9.0 g/dL (12.0-15.0); Mean Corp Hgb Conc 30.4 g/dL (32-36); Mean Corpuscular Volume 95.5 fL (81-99); Mean Platelet Vol. 11.6 fl (6.2-12.0); POSITIVE COUNT YES; Platelet Count 71 K/mm3 (150-450); RBC Distribution Width CV 18.6 % (11.6-14.6); RBC Distribution Width SD 63.9 fl (35.1-43.9); Red Blood Count 3.10 M/mm3 (4.2-5.4); Scan Indicated on CBC? Y/N NO; White Blood Count 3.0 K/mm3 (4.4-11.0)
[2024-12-11 06:32] LABS: Anion Gap 8 (5-15); BUN 37 mg/dL (4-19); BUN/Creat Ratio 7.0 RATIO (10-20); Calcium,Total 9.3 mg/dL (7.6-11.0); Carbon Dioxide 27.8 mmol/L (21.0-32.0); Chloride 97 mmol/L (98-108); Estimated Creatinine Clearance 12.39 ml/min (50-250); Glucose 119 mg/dL (70-99); Potassium 4.7 mmol/L (3.3-5.1)
[2024-12-11] MEDS: Aspirin E.C. 81 MG Tablet PO (08:41)
[2024-12-11] MEDS: SEVELAMER CARBONATE 800 MG TABLET 2400 MG PO ×2 (08:42→17:04)
[2024-12-11] MEDS: levoFLOXacin IV 500 MG/100 ML BAG 100 MG IV (10:43)
[2024-12-11] MEDS: 0.9% Normal Saline 1,000 ML IV.SOLN. 1000 ML OPERA.SITE (12:31)
[2024-12-11] MEDS: PureFlow B 2K Dialysis Soln 1 BAG 6 BAG PF (12:31)
[2024-12-11] MEDS: HYDROcodone Bitartrate/Apap 5/325 Tablet PO (22:13)
[2024-12-12 01:00] VITALS: BP 131/60; PULSE 76; RESP 16; TEMP 36.7; O2SAT 100
[2024-12-12 02:00] VITALS: O2SAT 100
[2024-12-12 05:08] VITALS: BMI 38.2
[2024-12-12 06:26] LABS: Hematocrit 29.3 % (37-47); Hemoglobin 8.8 g/dL (12.0-15.0); Mean Corp Hgb Conc 30.0 g/dL (32-36); Mean Corpuscular Volume 93.9 fL (81-99); Mean Platelet Vol. 11.3 fl (6.2-12.0); POSITIVE COUNT YES; Platelet Count 71 K/mm3 (150-450); RBC Distribution Width CV 18.1 % (11.6-14.6); RBC Distribution Width SD 61.9 fl (35.1-43.9); Red Blood Count 3.12 M/mm3 (4.2-5.4); White Blood Count 2.4 K/mm3 (4.4-11.0)
[2024-12-12 06:51] LABS: Anion Gap 9 (5-15); BUN 29 mg/dL (4-19); BUN/Creat Ratio 6.9 RATIO (10-20); Calcium,Total 9.3 mg/dL (7.6-11.0); Carbon Dioxide 27.0 mmol/L (21.0-32.0); Chloride 98 mmol/L (98-108); Estimated Creatinine Clearance 15.64 ml/min (50-250); Glucose 86 mg/dL (70-99); Potassium 4.5 mmol/L (3.3-5.1)
[2024-12-12 10:25] VITALS: BP 122/44; PULSE 77; RESP 16; TEMP 36.6; O2SAT 96
[2024-12-12] MEDS: Aspirin E.C. 81 MG Tablet PO (10:29)
[2024-12-12] MEDS: SEVELAMER CARBONATE 800 MG TABLET 2400 MG PO ×2 (12:52→17:09)
[2024-12-12 17:06] VITALS: BP 119/46; PULSE 77; RESP 16; TEMP 36.4; O2SAT 96
[2024-12-12 21:22] VITALS: BP 126/51; PULSE 70; RESP 18; TEMP 36.4; O2SAT 100
[2024-12-12] MEDS: HYDROcodone Bitartrate/Apap 5/325 Tablet PO (22:48)
[2024-12-13 03:21] VITALS: BP 123/48; PULSE 73; RESP 18; TEMP 36.1; O2SAT 99
[2024-12-13 05:01] LABS: Hematocrit 29.9 % (37-47); Hemoglobin 9.1 g/dL (12.0-15.0); Mean Corp Hgb Conc 30.4 g/dL (32-36); Mean Corpuscular Volume 95.8 fL (81-99); Mean Platelet Vol. 12.0 fl (6.2-12.0); POSITIVE COUNT YES; Platelet Count 70 K/mm3 (150-450); RBC Distribution Width CV 18.0 % (11.6-14.6); RBC Distribution Width SD 62.7 fl (35.1-43.9); Red Blood Count 3.12 M/mm3 (4.2-5.4); White Blood Count 2.3 K/mm3 (4.4-11.0)
[2024-12-13 05:26] LABS: Anion Gap 9 (5-15); BUN 36 mg/dL (4-19); BUN/Creat Ratio 7.2 RATIO (10-20); Calcium,Total 9.2 mg/dL (7.6-11.0); Carbon Dioxide 26.9 mmol/L (21.0-32.0); Chloride 97 mmol/L (98-108); Estimated Creatinine Clearance 12.99 ml/min (50-250); Glucose 94 mg/dL (70-99); Potassium 4.5 mmol/L (3.3-5.1)
[2024-12-13 05:37] VITALS: BMI 38.4
[2024-12-13 09:04] VITALS: BP 137/53; PULSE 68; RESP 16; TEMP 36.4; O2SAT 100
[2024-12-13] MEDS: SEVELAMER CARBONATE 800 MG TABLET 2400 MG PO ×3 (09:11→17:11)
[2024-12-13] MEDS: Aspirin E.C. 81 MG Tablet PO (09:12)
[2024-12-13] MEDS: BACITRACIN 15 GM Tube 1 APPLIC TOPICAL ×2 (09:15→21:32)
[2024-12-13] MEDS: levoFLOXacin IV 500 MG/100 ML BAG 100 MG IV (09:31)
[2024-12-13 15:00] VITALS: BP 137/63; PULSE 66; RESP 16; TEMP 36.6; O2SAT 99
[2024-12-13 21:29] VITALS: BP 125/55; PULSE 65; RESP 18; TEMP 36.5; O2SAT 100
[2024-12-13] MEDS: 0.9% Saline Lock 10 ML Syringe IV (21:39)
[2024-12-14] VITALS (12 sets, daily range): BP systolic 128–153; BP diastolic 48–70; PULSE 65–79; RESP 14–20; TEMP 36.3–36.6; O2SAT 98–100; BMI 38.3
[2024-12-14 05:53] LABS: Hematocrit 29.2 % (37-47); Hemoglobin 9.1 g/dL (12.0-15.0); Mean Corp Hgb Conc 31.2 g/dL (32-36); Mean Corpuscular Volume 92.4 fL (81-99); Mean Platelet Vol. 11.8 fl (6.2-12.0); POSITIVE COUNT YES; Platelet Count 74 K/mm3 (150-450); RBC Distribution Width CV 17.4 % (11.6-14.6); RBC Distribution Width SD 58.6 fl (35.1-43.9); Red Blood Count 3.16 M/mm3 (4.2-5.4); White Blood Count 2.6 K/mm3 (4.4-11.0)
[2024-12-14 06:16] LABS: Anion Gap 10 (5-15); BUN 45 mg/dL (4-19); BUN/Creat Ratio 7.7 RATIO (10-20); Calcium,Total 9.2 mg/dL (7.6-11.0); Carbon Dioxide 24.9 mmol/L (21.0-32.0); Chloride 95 mmol/L (98-108); Estimated Creatinine Clearance 11.16 ml/min (50-250); Glucose 86 mg/dL (70-99); Potassium 5.2 mmol/L (3.3-5.1)
[2024-12-14] MEDS: SEVELAMER CARBONATE 800 MG TABLET 2400 MG PO ×3 (08:55→16:30)
[2024-12-14] MEDS: 0.9% Normal Saline 1,000 ML IV.SOLN. 1000 ML OPERA.SITE (09:43)
[2024-12-14] MEDS: PureFlow B 2K Dialysis Soln 1 BAG 6 BAG PF (09:44)
[2024-12-14] MEDS: Aspirin E.C. 81 MG Tablet PO (14:11)
[2024-12-14] MEDS: BACITRACIN 15 GM Tube 1 APPLIC TOPICAL ×2 (14:12→22:27)
[2024-12-15] VITALS (10 sets, daily range): BP systolic 97–141; BP diastolic 46–61; PULSE 69–77; RESP 14–18; TEMP 36.3–37.1; O2SAT 98–100; BMI 38.6; BMI 38.5
[2024-12-15 05:02] LABS: Hematocrit 29.0 % (37-47); Hemoglobin 8.8 g/dL (12.0-15.0); Mean Corp Hgb Conc 30.3 g/dL (32-36); Mean Corpuscular Volume 93.9 fL (81-99); Mean Platelet Vol. 11.3 fl (6.2-12.0); POSITIVE COUNT YES; Platelet Count 74 K/mm3 (150-450); RBC Distribution Width CV 17.4 % (11.6-14.6); RBC Distribution Width SD 60.9 fl (35.1-43.9); Red Blood Count 3.09 M/mm3 (4.2-5.4); White Blood Count 2.5 K/mm3 (4.4-11.0)
[2024-12-15 05:23] LABS: Anion Gap 9 (5-15); BUN 33 mg/dL (4-19); BUN/Creat Ratio 7.1 RATIO (10-20); Calcium,Total 9.3 mg/dL (7.6-11.0); Carbon Dioxide 26.6 mmol/L (21.0-32.0); Chloride 98 mmol/L (98-108); Estimated Creatinine Clearance 14.07 ml/min (50-250); Glucose 100 mg/dL (70-99); Potassium 4.3 mmol/L (3.3-5.1)
[2024-12-15] MEDS: 0.9% Saline Lock 10 ML Syringe IV (08:53)
[2024-12-15] MEDS: BACITRACIN 15 GM Tube 1 APPLIC TOPICAL (08:55)
[2024-12-15] MEDS: levoFLOXacin IV 500 MG/100 ML BAG 100 MG IV (09:02)
[2024-12-15] MEDS: 0.9% Normal Saline (500mL Bag) 500 ML 15 ML IV (11:56)
[2024-12-15] MEDS: Polyethylene Glycol 3350 17 GM PACKET PO (14:48)
== END 2024-12-15 16:08 | disposition home health service (06) | DRG 177 ==
LOC: ED 16:55 → PCU 17:05
PROVIDERS: Internal Medicine; Internal Medicine Gastroenterology; Emergency Provider Emergency Medicine; PCP Internal Medicine; Visit Provider Family Medicine
PROC: 0DJ08ZZ Inspection of Upper Intestinal Tract, Via Natural or Artificial Opening Endoscopic (ICD-10-PCS; CPT 43235; principal; 2024-12-15 12:40)
DX: J69.0 Pneumonitis due to inhalation of food and vomit (principal); N18.6 End stage renal disease; I13.2 Hypertensive heart and chronic kidney disease with heart failure and with stage 5 chronic kidney disease, or end stage renal disease; I31.39 Other pericardial effusion (noninflammatory); J44.0 Chronic obstructive pulmonary disease with (acute) lower respiratory infection; Z94.4 Liver transplant status; I50.32 Chronic diastolic (congestive) heart failure; D84.9 Immunodeficiency, unspecified; D69.6 Thrombocytopenia, unspecified; K22.0 Achalasia of cardia; D63.1 Anemia in chronic kidney disease; E11.22 Type 2 diabetes mellitus with diabetic chronic kidney disease; E03.9 Hypothyroidism, unspecified; F32.A Depression, unspecified; G25.81 Restless legs syndrome; Z68.38 Body mass index [BMI] 38.0-38.9, adult; Z99.2 Dependence on renal dialysis; Z79.4 Long term (current) use of insulin; K21.9 Gastro-esophageal reflux disease without esophagitis; F41.9 Anxiety disorder, unspecified; E11.43 Type 2 diabetes mellitus with diabetic autonomic (poly)neuropathy; K31.84 Gastroparesis; K44.9 Diaphragmatic hernia without obstruction or gangrene; R13.10 Dysphagia, unspecified; E66.812 Obesity, class 2; Z95.5 Presence of coronary angioplasty implant and graft; Z86.718 Personal history of other venous thrombosis and embolism; Z79.51 Long term (current) use of inhaled steroids; Z79.82 Long term (current) use of aspirin; Z79.899 Other long term (current) drug therapy
CPT/HCPCS: 36415; 71045; 74230; 80048; 80053; 81001; 82962; 83036; 83605; 83880; 85025; 85027; 85610; 85730; 87040; 87070; 87086; 87088; 87205; 87449; 87631; 87633; 88305; 90937; 92526; 92610; 92611; 93005; 93306; 94640; 94668; 97802; 99285; P9612; A4216; C1769; G0257; J0612; J2405

== ENCOUNTER 2024-12-31 09:30 | Emergency (ER) | payer MEDICARE, MEDICAID, SELFPAY ==
[2024-12-31 09:30] VITALS: BP 148/83; PULSE 82; RESP 15; TEMP 36.6; O2SAT 98; BMI 37.0
--- NOTE | 2024-12-31 09:41 | RAD_ITS ---
PROCEDURE: RAD/HIP, UNI W/ Pelvis 2-3 Views
--- NOTE | 2024-12-31 09:42 | ED.VIS.LOWEX ---
HPI History of Present Illness Chief Complaint: Lower Extremity Injury Narrative Narrative: Patient is a 69-year-old female presenting to the emergency department for left hip pain after a fall 9 days ago. Patient has a past medical history of diabetes, ESRD on dialysis, [facility], liver transplant on tacrolimus done including clinic main campus in 2008, obesity. Patient states she is wheelchair dependent due to right hip pain. States that 9 days ago she was trying to get into bed with her 's help when he moved his feet causing her to fall backwards on her buttocks. She denies hitting her head or any loss of consciousness. Denies neck or back pain. Denies any other complaints other than the left hip pain. [facility] Medical History Sepsis Pancytopenia Secondary amyloidosis Lytic bone lesion of left femur Hypokalemia Ankle sprain Contusion of right shoulder Contusion of right knee Cervical strain, acute History of subdural hematoma (post traumatic) Closed head injury Generalized weakness Ambulatory dysfunction Diabetes Dialysis patient Sleep apnea Easy bruising Restless legs Difficulty swallowing Dietary restriction History of ulceration Shortness of breath on exertion CPAP (continuous positive airway pressure) dependence Influenza A Acute dyspnea Pneumonia Anxiety Depression Hypothyroidism Irregular heart beat Hypertension DVT (deep venous thrombosis) Multiple falls Uses wheelchair History of renal dialysis Osteoporosis Cirrhosis Non-smoker ESRD (end stage renal disease) Pancytopenia Chronic renal failure, stage 5 Infection involving suture with abscess Wears glasses Wears dentures Cancer Insulin dependent diabetes mellitus Anemia Hx of Krueger's palsy Back pain Gastric reflux COPD (chronic obstructive pulmonary disease) History of edema History of echocardiogram (~01/22/20) History of stress test (~12/07/19) Cardiology follow-up encounter [facility] History of uterine cancer Hypertension Anemia in chronic kidney disease Home Medications ?Medication ?Instructions ?Recorded ?Last Taken ?Type cholecalciferol (vitamin D3) 25 1,000 unit PO BID supplement 02/20/15 12/08/24 History mcg (1,000 unit) tablet vitamin B complex 1 tablet PO DAILY SUPPLEMENT 09/10/19 12/08/24 History ropinirole 1 mg tablet 1 mg PO QHS restless legs 05/23/20 12/08/24 History nitroglycerin 0.4 mg sublingual 0.4 mg sublingual Q5M PRN 04/29/21 Unknown Rx tablet Cardiac/Chest Pain #30 tabs albuterol sulfate 90 mcg/actuation 2 puff IH Q4H PRN PRN Sob &/Or 10/25/21 Unknown Rx aerosol inhaler Wheezing 30 days #8.6 grams apremilast 30 mg tablet (Otezla) 30 mg PO DAILY psoriasis 09/08/22 12/08/24 History levothyroxine 88 mcg tablet 88 mcg PO DAILY thyroid 12/31/22 12/08/24 History trazodone 100 mg tablet 100 mg PO QHS sleep 12/31/22 12/08/24 History aspirin 81 mg tablet,delayed 81 mg PO DAILY heart 01/28/23 10/29/24 09:00 History release (Adult Aspirin Regimen) midodrine 10 mg tablet 10 mg PO MOWEFR PRN hypotension 04/15/23 05/04/24 History nystatin 100,000 unit/gram topical 1 applic topical BID PRN PRN SKIN 07/01/23 Unknown History powder ([facility]) atorvastatin 40 mg tablet 40 mg PO QHS cholesterol #30 tabs 01/14/24 12/08/24 Rx gabapentin 100 mg capsule 200 mg PO QHS neuropathy 05/06/24 12/08/24 History ropinirole 2 mg tablet 2 mg PO DAILY retless leg 05/06/24 12/08/24 History sertraline 100 mg tablet 100 mg PO DAILY anxiety and 05/06/24 12/08/24 History depression tacrolimus 0.5 mg capsule, 0.5 mg PO Q12H antirejection 05/06/24 12/08/24 History immediate-release suvorexant 10 mg tablet (Belsomra) 10 mg PO QHS sleep 07/01/24 12/08/24 History carvedilol 6.25 mg tablet 6.25 mg PO BID BP 10/29/24 12/08/24 History pantoprazole 40 mg tablet,delayed 40 mg PO BID gerd 30 days #60 tabs 10/31/24 12/08/24 Rx release hydrocodone-acetaminophen 5-325mg 1 tab PO Q6H PRN pain 2 days #8 11/18/24 12/08/24 Rx 5mg-325mg tabs ondansetron 4 mg disintegrating 4 mg PO Q6H PRN nausea and 11/18/24 Unknown Rx tablet vomiting #20 tabs insulin lispro 100 unit/mL 10 unit subcut TIDCM PRN Take if 12/02/24 Unknown History subcutaneous pen (Humalog KwikPen BG over 250 (U-100) Insulin) sevelamer carbonate 800 mg tablet 2,400 mg PO TID Binder 12/02/24 12/08/24 History levofloxacin 500 mg tablet 500 mg PO .Q48 #2 tabs 12/15/24 Unknown Rx Allergy/AdvReac Type Severity Reaction Status Date / Time amlodipine (From Norvasc) Allergy Severe Hives Verified 12/31/24 09:31 ampicillin sodium (From Allergy Severe Hives Verified 12/31/24 09:31 Unasyn) buspirone HCl (From BuSpar) Allergy Severe Hives Verified 12/31/24 09:31 cefadroxil (From Duricef) Allergy Severe Hives Verified 12/31/24 09:31 lisinopril Allergy Severe Swelling Verified 12/31/24 09:31 naproxen Allergy Severe Hives Verified 12/31/24 09:31 niacin (From Niaspan Allergy Severe Hives Verified 12/31/24 09:31 Extended-Release) sulbactam sodium (From Allergy Severe Hives Verified 12/31/24 09:31 Unasyn) Sulfa (Sulfonamide Allergy Severe Hives Verified 12/31/24 09:31 Antibiotics) tramadol Allergy Mild Nausea Verified 12/31/24 09:31 cephalexin (From Keflex) Allergy Vomiting Verified 12/31/24 09:31 omeprazole AdvReac Severe Other Verified 12/31/24 09:31 losartan AdvReac Swelling Verified 12/31/24 09:31 Family History Mother Diabetes Anemia Father Hypertension LUNG/RESPIRATORY DISEASE Surgical History History of esophagogastroduodenoscopy (EGD) History of coronary artery stent placement History of cardiac catheterization History of appendectomy S/P arteriovenous (AV) fistula creation (~06/16/20) History of cholecystectomy History of left salpingo-oophorectomy History of radical hysterectomy History of left knee surgery History of ventral hernia repair History of liver transplant Social History housing: apartment current occupational status: disabled Smoking Status: Never smoker alcohol intake: never substance use type: does not use ROS ROS ED ROS Narrative see HPI EXAM Physical Exam Narrative Exam Narrative: Vital signs: Reviewed General: Alert and orientedx3. No acute distress HEENT: Head is normocephalic and atraumatic, sinuses nontender, pupils equal round and reactive. Nares are patent. Oropharynx and throat exams normal. Neck: Supple without lymphadenopathy nontender Cardiovascular: Regular rate and rhythm, no murmurs. No rubs or gallops. Normal S1 and S2 Respiratory: Clear to auscultation bilaterally. No wheezes, rales, rhonchi Abdominal: Soft and nontender. Normal bowel sounds. No guarding or rebound. Nonsurgical abdomen Extremities: Left hip is mildly tender on the lateral aspect. There is no obvious deformity, ecchymosis, erythema. Hips are stable to palpation. There is no tenderness to palpation of the left femur, knee, tib-fib. She is able to flex and extend at the hip slightly limited due to pain. Extremities are otherwise atraumatic and nontender to palpation with normal active range of motion. Normal sensation. Skin: No rash or redness. Neurological: Cranial nerves II through XII are grossly intact. Normal strength and sensation. Normal cerebellar function The rest of the physical exam is unremarkable Const Vital Signs: 12/31/24 09:30 Temperature 97.9 F Temperature Source Oral Pulse Rate 82 Respiratory Rate 15 Blood Pressure 148/83 H Blood Pressure Mean 104 Pulse Ox 98 Oxygen Delivery Method Room Air MDM MDM MDM Narrative Medical decision making narrative: Patient is a 69-year-old female presenting to the emergency department for left hip pain after a fall 9 days ago. Patient was seen and examined. Vitals are stable. Patient resting bed comfortably no acute distress. No signs of trauma on physical exam. Will obtain a hip x-ray initially and if this is negative can proceed with CT. hip x-ray reviewed by myself, no dislocation or fractures noted. Given negative x-ray and continued pain, CT of the hip was ordered. There is a total hip prosthesis in position on the left with associated streak artifact. Subcutaneous edema in the region of the trochanteric bursa and overlying skin with no discrete hematoma. Patient was updated on the negative imaging. She is in a wheelchair at baseline so no ambulation test needed. Patient was instructed to take Tylenol or use Voltaren gel on her hip for pain. Patient discharged from the Emergency Department. I do not feel that the patient's evaluation reveals any acute reason for admission at this time. I instructed them to either follow-up with their primary care physician or promptly return to the Emergency Department for reevaluation should symptoms worsen or new symptoms develop. I explained what symptoms would indicate the need to return to the emergency department. Shared decision making was used. The patient voiced understanding of the treatment plan and is agreeable with it. Clinical impression: Hip contusion History & Record Review Discussion w/independent historian: Patient Radiography Diagnostic Testing: Clinical Impression(s) from Imaging Studies Hip/Pelvis X-Ray 12/31/24 09:41 IMPRESSION: Uncomplicated left hip replacement. 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 Reading Location: [id number] Lower Extremity CT 12/31/24 10:13 IMPRESSION: There is a total hip prosthesis in position on the left with associated streak artifact. There is subcutaneous edema in the region of the trochanteric bursa and overlying skin with no discrete hematoma. Reading Location: [facility] Discharge Plan Triage Chief Complaint: Lower Extremity Injury ED Provider: Yudy Post Dx/Rx/DC Orders Clinical Impression: Fall, Contusion of hip, left Instructions: ED Hip Contusion, ED Fall Prevention Prescriptions: No Action atorvastatin 40 mg tablet 40 mg PO QHS Qty: 30 2RF insulin lispro [Humalog KwikPen Insulin] 100 unit/mL insulin pen 10 unit subcut TIDCM PRN (Reason: Take if BG over 250) Patient Comments: TAKES 14U IF NEEDS Rx Instructions: Haven't needed to take for a few months Belsomra 10 mg tablet 10 mg PO QHS sevelamer carbonate 800 mg tablet 2,400 mg PO TID Rx Instructions: must administer with a meal/food cholecalciferol (vitamin D3) 1,000 UNIT tablet 1,000 unit PO BID Patient Comments: bone health ropinirole 1 mg tablet 1 mg PO QHS Rx Instructions: 2MG IN AM AND 1MG PM vitamin B complex 1 EACH tablet 1 tablet PO DAILY nitroglycerin 0.4 mg Tablet, Sublingual 0.4 mg sublingual Q5M PRN (Reason: Cardiac/Chest Pain) Qty: 30 0RF albuterol sulfate 1 PUFF inhaler 2 puff IH Q4H PRN PRN (Reason: Sob &/Or Wheezing) 30 Days Qty: 8.6 0RF Otezla 30 mg tablet 30 mg PO DAILY midodrine 10 mg tablet 10 mg PO MOWEFR PRN (Reason: hypotension) Rx Instructions: afternoon levothyroxine 88 mcg tablet 88 mcg PO DAILY Rx Instructions: Recent change, take daily but on Fridays take one and a half tablets trazodone 100 mg tablet 100 mg PO QHS aspirin [Adult Aspirin Regimen] 81 mg tablet,delayed release (DR/EC) 81 mg PO DAILY nystatin [Nyamyc] 100,000 unit/gram Powder 1 applic topical BID PRN PRN (Reason: SKIN) Protocol: *Topical Application Instructions APPLICATION INSTRUCTIONS: apply to abdominal folds carvedilol 6.25 mg tablet 6.25 mg PO BID pantoprazole 40 mg tablet,delayed release (DR/EC) 40 mg PO BID 30 Days Qty: 60 3RF levofloxacin 500 mg tablet 500 mg PO .Q48 Qty: 2 0RF Rx Instructions: Start 12/17/2024 ropinirole 2 mg tablet 2 mg PO DAILY Rx Instructions: 2MG IN AM AND 1MG PM gabapentin 100 mg capsule 200 mg PO QHS tacrolimus 0.5 mg capsule 0.5 mg PO Q12H Patient Comments: pt takes 2 caps in am and 1 caps at hs sertraline 100 mg tablet 100 mg PO DAILY ondansetron 4 mg tablet,disintegrating 4 mg PO Q6H PRN (Reason: nausea and vomiting) Qty: 20 0RF hydrocodone-acetaminophen 5-325 mg tablet 1 tab PO Q6H PRN (Reason: pain) 2 Days Qty: 8 0RF Primary Care Provider: Velia Archuleta Referrals: Velia Archuleta MD [Primary Care Provider, Internal Medicine] - As soon as possible Activity Restrictions/Additional Instructions: Your evaluation in the Emergency Department did not reveal any acute reason for admission. However, I want to emphasize that you may be early in the course of a disease process or illness even if it is not present. For this reason you should follow-up within 24 hours for reevaluation with either your primary care physician or if necessary back here in the Emergency Department. You should return to the Emergency Department immediately if your symptoms worsen or new symptoms develop. Print Language: British Disposition Disposition: Home, Self Care
--- NOTE | 2024-12-31 10:13 | CT_ITS ---
PROCEDURE: CT/Extremity Lower without Contra
[2024-12-31 11:42] VITALS: BP 142/54; PULSE 79; RESP 18; TEMP 36.9; O2SAT 96
== END 2024-12-31 11:43 | disposition home or self-care (01) ==
PROVIDERS: Emergency Provider Student in an Organized Health Care Education/Training Program; PCP Internal Medicine; Visit Provider Student in an Organized Health Care Education/Training Program
DX: S70.02XA Contusion of left hip, initial encounter (principal); N18.6 End stage renal disease; I12.0 Hypertensive chronic kidney disease with stage 5 chronic kidney disease or end stage renal disease; Z94.4 Liver transplant status; J44.9 Chronic obstructive pulmonary disease, unspecified; E11.22 Type 2 diabetes mellitus with diabetic chronic kidney disease; Z79.4 Long term (current) use of insulin; W18.39XA Other fall on same level, initial encounter; E66.9 Obesity, unspecified; Z68.37 Body mass index [BMI] 37.0-37.9, adult; Z95.5 Presence of coronary angioplasty implant and graft; Z96.643 Presence of artificial hip joint, bilateral; Z79.82 Long term (current) use of aspirin; Z79.899 Other long term (current) drug therapy
CPT/HCPCS: 73502; 73700; 99284

== ENCOUNTER 2025-02-25 03:36 | Emergency (ER) | payer MEDICARE, MEDICAID, SELFPAY ==
[2025-02-25] VITALS (7 sets, daily range): BP systolic 135–164; BP diastolic 58–109; PULSE 75–82; RESP 12–18; TEMP 36.6–36.7; O2SAT 97–100; BMI 37.2
--- NOTE | 2025-02-25 03:47 | ED.VIS.CHEST ---
HPI History of Present Illness Chief Complaint: Chest Pain Informant: patient Onset/Context/Timing Onset: Today Activity at onset: sudden Timing: Continuous Quality: Positive for Stabbing Location: Substernal and Right Chest Worsened By: Nothing Relieved By: Nothing Associated Symptoms: Negative for Nausea, Vomiting, Diaphoresis, Dyspnea, Cough, Fever, Lightheadedness, Acid Reflux or Palpitations Narrative Narrative: Patient presents with chest pain that began today. Patient states it began proximately 4 hours prior to arrival. Patient states it started over the substernal area but is now mainly over the right chest and right axilla. Patient describes it as stabbing. Patient states nothing makes it better nothing makes it worse. Patient denies any shortness of breath or cough. Patient denies any nausea or vomiting. 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 Hypokalemia Ankle sprain Contusion of right shoulder Contusion of right knee Cervical strain, acute History of subdural hematoma (post traumatic) Closed head injury Generalized weakness Ambulatory dysfunction Diabetes Dialysis patient Sleep apnea Easy bruising Restless legs Difficulty swallowing Dietary restriction History of ulceration Shortness of breath on exertion CPAP (continuous positive airway pressure) dependence Influenza A Acute dyspnea Pneumonia Anxiety Depression Hypothyroidism Irregular heart beat Hypertension DVT (deep venous thrombosis) Multiple falls Uses wheelchair History of renal dialysis Osteoporosis Cirrhosis Non-smoker ESRD (end stage renal disease) Pancytopenia Chronic renal failure, stage 5 Infection involving suture with abscess Wears glasses Wears dentures Cancer Insulin dependent diabetes mellitus Anemia Hx of Krueger's palsy Back pain Gastric reflux COPD (chronic obstructive pulmonary disease) History of edema History of echocardiogram (~01/22/20) History of stress test (~12/07/19) Cardiology follow-up encounter [facility] History of uterine cancer Hypertension Anemia in chronic kidney disease Home Medications ?Medication ?Instructions ?Recorded ?Last Taken ?Type cholecalciferol (vitamin D3) 25 1,000 unit PO BID supplement 02/20/15 12/08/24 History mcg (1,000 unit) tablet vitamin B complex 1 tablet PO DAILY SUPPLEMENT 09/10/19 12/08/24 History ropinirole 1 mg tablet 1 mg PO QHS restless legs 05/23/20 12/08/24 History nitroglycerin 0.4 mg sublingual 0.4 mg sublingual Q5M PRN 04/29/21 Unknown Rx tablet Cardiac/Chest Pain #30 tabs albuterol sulfate 90 mcg/actuation 2 puff IH Q4H PRN PRN Sob &/Or 10/25/21 Unknown Rx aerosol inhaler Wheezing 30 days #8.6 grams apremilast 30 mg tablet (Otezla) 30 mg PO DAILY psoriasis 09/08/22 12/08/24 History levothyroxine 88 mcg tablet 88 mcg PO DAILY thyroid 12/31/22 12/08/24 History trazodone 100 mg tablet 100 mg PO QHS sleep 12/31/22 12/08/24 History aspirin 81 mg tablet,delayed 81 mg PO DAILY heart 01/28/23 10/29/24 09:00 History release (Adult Aspirin Regimen) midodrine 10 mg tablet 10 mg PO MOWEFR PRN hypotension 04/15/23 05/04/24 History atorvastatin 40 mg tablet 40 mg PO QHS cholesterol #30 tabs 01/14/24 12/08/24 Rx gabapentin 100 mg capsule 200 mg PO QHS neuropathy 05/06/24 12/08/24 History ropinirole 2 mg tablet 2 mg PO DAILY retless leg 05/06/24 12/08/24 History sertraline 100 mg tablet 100 mg PO DAILY anxiety and 05/06/24 12/08/24 History depression tacrolimus 0.5 mg capsule, 0.5 mg PO Q12H antirejection 05/06/24 12/08/24 History immediate-release suvorexant 10 mg tablet (Belsomra) 10 mg PO QHS sleep 07/01/24 12/08/24 History carvedilol 6.25 mg tablet 6.25 mg PO BID BP 10/29/24 12/08/24 History hydrocodone-acetaminophen 5-325mg 1 tab PO Q6H PRN pain 2 days #8 11/18/24 12/08/24 Rx 5mg-325mg tabs ondansetron 4 mg disintegrating 4 mg PO Q6H PRN nausea and 11/18/24 Unknown Rx tablet vomiting #20 tabs sevelamer carbonate 800 mg tablet 2,400 mg PO TID Binder 12/02/24 12/08/24 History Allergy/AdvReac Type Severity Reaction Status Date / Time amlodipine (From Norvasc) Allergy Severe Hives Verified 02/25/25 03:41 ampicillin sodium (From Allergy Severe Hives Verified 02/25/25 03:41 Unasyn) buspirone HCl (From BuSpar) Allergy Severe Hives Verified 02/25/25 03:41 cefadroxil (From Duricef) Allergy Severe Hives Verified 02/25/25 03:41 lisinopril Allergy Severe Swelling Verified 02/25/25 03:41 naproxen Allergy Severe Hives Verified 02/25/25 03:41 niacin (From Niaspan Allergy Severe Hives Verified 02/25/25 03:41 Extended-Release) sulbactam sodium (From Allergy Severe Hives Verified 02/25/25 03:41 Unasyn) Sulfa (Sulfonamide Allergy Severe Hives Verified 02/25/25 03:41 Antibiotics) tramadol Allergy Mild Nausea Verified 02/25/25 03:41 cephalexin (From Keflex) Allergy Vomiting Verified 02/25/25 03:41 omeprazole AdvReac Severe Other Verified 02/25/25 03:41 losartan AdvReac Swelling Verified 02/25/25 03:41 Family History Mother Diabetes Anemia Father Hypertension LUNG/RESPIRATORY DISEASE Surgical History History of esophagogastroduodenoscopy (EGD) History of coronary artery stent placement History of cardiac catheterization History of appendectomy S/P arteriovenous (AV) fistula creation (~06/16/20) History of cholecystectomy History of left salpingo-oophorectomy History of radical hysterectomy History of left knee surgery History of ventral hernia repair History of liver transplant Social History housing: apartment current occupational status: disabled Smoking Status: Never smoker alcohol intake: never substance use type: does not use ROS ROS ED Constitutional Constitutional ED: Denies chills or fever(s) Eyes Eyes: Denies blurry vision or change in vision ENT ENT ED: Denies rhinorrhea or sore throat Cardiovascular Cardiovascular: Reports as per HPI and chest pain; Denies palpitations Respiratory/Chest Respiratory/Chest: Denies cough or dyspnea Gastrointestinal Gastrointestinal: Denies nausea or vomiting Genitourinary Genitourinary ED: Denies dysuria or hematuria Musculoskeletal Musculoskeletal: Denies back pain or neck pain Integumentary Denies abscess or rash Neurologic Neurologic: Denies headache(s) or weakness Allergic/Immunologic Allergic/Immunologic ED: Denies mouth swelling or urticaria EXAM Physical Exam Const Vital Signs: 02/25/25 03:37 02/25/25 03:39 02/25/25 03:50 Temperature 98.0 F 98.0 F Temperature Source Oral Oral Pulse Rate 79 82 Respiratory Rate 18 18 Respiratory Effort Normal Non-Labored Blood Pressure 164/59 H 164/59 H Blood Pressure Mean 94 94 Pulse Ox 100 98 Oxygen Delivery Method Room Air Room Air 02/25/25 04:36 02/25/25 05:00 02/25/25 06:00 Temperature Temperature Source Pulse Rate 82 82 77 Respiratory Rate 15 12 15 Respiratory Effort Blood Pressure 135/60 H 157/58 H 135/92 H Blood Pressure Mean 85 86 105 Pulse Ox 100 100 98 Oxygen Delivery Method Room Air 02/25/25 07:00 Temperature Temperature Source Pulse Rate 75 Respiratory Rate 14 Respiratory Effort Blood Pressure 154/109 H Blood Pressure Mean 124 Pulse Ox 97 Oxygen Delivery Method Positive well nourished and well developed Constitutional Narrative: BMI is 37.2. General Appearance ED: well developed and NAD HEENT Reports moist mucous membranes Neck supple and no JVD Resp normal respiratory effort and clear to auscultation bilaterally Cardio regular rate and regular rhythm GI soft to palpation, non-tender and non-distended Neuro oriented x3, CN's II-XII intact bilaterally and no sensory deficits noted Sensorium / Orientation: awake and alert Motor Exam: strength 5/5 throughout Psych mental status grossly normal Heart Score History: Slightly/Non-Suspicious ECG: Nonspecific Repolarization Age: >/= 65 years Risk Factors: 1 or 2 Risk Factors Score: 4 MDM MDM MDM Narrative Medical decision making narrative: Differential diagnosis includes cardiac dysrhythmia, cardiac ischemia, pneumonia, bronchitis, musculoskeletal pain, electrolyte abnormality, and anxiety. EKG will be obtained to assess for cardiac dysrhythmia and cardiac ischemia. Chest x-ray will be obtained to assess for pneumonia and bronchitis. CBC will be obtained to assess for leukocytosis and anemia. Basic metabolic profile will be obtained to assess for electrolyte abnormality renal function. High-sensitivity troponin will be obtained to assess for cardiac ischemia. 2-hour repeat high-sensitivity troponin will be obtained to assess for ongoing cardiac ischemia. History & Record Review Additional record(s) reviewed:: Prior inpatient record, Prior ED visit and Prior labs Lab Data Attestation: I reviewed the patient's lab results. Lab results narrative: CBC was reviewed. White blood cell count was slightly low at 3.1. There is mild anemia with a hemoglobin of 8.8 and hematocrit 29.7. Platelets were slightly low at 93. These are consistent with previous results. Basic metabolic profile was reviewed. BUN was 28 and creatinine was 5.34. These are consistent with previous results. Initial high-sensitivity troponin was reviewed and was 134. 2-hour repeat high-sensitivity troponin was reviewed and was 125. These are likely due to her chronic kidney disease. Labs: Laboratory Results - last 24 hr 02/25/25 02/25/25 03:44 05:45 WBC 3.1 L RBC 3.11 L Hgb 8.8 L Hct 29.7 L MCV 95.5 MCH 28.3 MCHC 29.6 L RDW Std Deviation 62.5 H RDW Coeff of Tami 18.2 H Plt Count 93 L MPV 11.8 Immature Gran % (Auto) 1.300 H Neut % (Auto) 68.9 Lymph % (Auto) 16.2 L Dixie % (Auto) 7.8 Eos % (Auto) 5.5 H Baso % (Auto) 0.3 Absolute Neuts (auto) 2.1 Absolute Lymphs (auto) 0.50 L Nucleated RBC % 0 Differential Comment SCANNED Platelet Estimate MOD DEC Sodium 138 Potassium 4.7 Chloride 97 Carbon Dioxide 28.1 Anion Gap 13 BUN 28 H Creatinine 5.34 H Estim Creat Clear Calc 12.07 L Est GFR (MDRD) Non-Af 8 L BUN/Creatinine Ratio 5.2 L Glucose 114 H Calcium 10.0 Troponin T High Sens 134 H* Troponin T Hi Sens 2 Hr 125 H* Radiography Chest X-Ray - ED: 2 View, Read by ED Physician, Read by Radiologist and No Acute Disease Diagnostic Testing: Clinical Impression(s) from Imaging Studies Chest X-Ray 02/25/25 04:04 IMPRESSION: No interval change Reading Location: [facility] and lateral chest x-ray was obtained. There are 2 views. On my independent interpretation, lung gagnon are clear. There is normal cardiac silhouette. Bony thorax is normal. There is no acute process noted. Radiologist also interpreted the x-ray and agrees. EKG Initial EKG: Attestation: I personally reviewed and interpreted this EKG as follows: Interpretation: Sinus Rhythm (77) Comments: EKG was obtained. On my independent interpretation, shows normal sinus rhythm with a rate of 77. ND interval was normal at 198 ms. QRS interval slightly prolonged at 138 ms. QTc interval was 482 ms. There is left axis deviation at -44. There is a left bundle branch block pattern noted. This was unchanged compared to previous EKG. Prior EKG tracings: available for review Prior: Unchanged (12/09/2024) Treatment and Re-Evaluation :: Patient was given injection of morphine. Patient was feeling better on reevaluation. Patient was advised of her findings. Patient was instructed to follow-up with her primary care physician in 5 to 7 days. Patient was instructed to return if worse in any way. Patient understood and was agreeable with the plan. All questions were answered. Discharge Plan Triage Chief Complaint: Chest Pain ED Provider: Carlton Greene Dx/Rx/DC Orders Clinical Impression: Chest pain, Chronic anemia, Chronic kidney disease, Type 2 diabetes mellitus Instructions: ED Chest Pain, Uncertain Cause Prescriptions: No Action atorvastatin 40 mg tablet 40 mg PO QHS Qty: 30 2RF Belsomra 10 mg tablet 10 mg PO QHS sevelamer carbonate 800 mg tablet 2,400 mg PO TID Rx Instructions: must administer with a meal/food cholecalciferol (vitamin D3) 1,000 UNIT tablet 1,000 unit PO BID Patient Comments: bone health ropinirole 1 mg tablet 1 mg PO QHS Rx Instructions: 2MG IN AM AND 1MG PM vitamin B complex 1 EACH tablet 1 tablet PO DAILY nitroglycerin 0.4 mg Tablet, Sublingual 0.4 mg sublingual Q5M PRN (Reason: Cardiac/Chest Pain) Qty: 30 0RF albuterol sulfate 1 PUFF inhaler 2 puff IH Q4H PRN PRN (Reason: Sob &/Or Wheezing) 30 Days Qty: 8.6 0RF Otezla 30 mg tablet 30 mg PO DAILY midodrine 10 mg tablet 10 mg PO MOWEFR PRN (Reason: hypotension) Rx Instructions: afternoon levothyroxine 88 mcg tablet 88 mcg PO DAILY Rx Instructions: Recent change, take daily but on Fridays take one and a half tablets trazodone 100 mg tablet 100 mg PO QHS aspirin [Adult Aspirin Regimen] 81 mg tablet,delayed release (DR/EC) 81 mg PO DAILY carvedilol 6.25 mg tablet 6.25 mg PO BID ropinirole 2 mg tablet 2 mg PO DAILY Rx Instructions: 2MG IN AM AND 1MG PM gabapentin 100 mg capsule 200 mg PO QHS tacrolimus 0.5 mg capsule 0.5 mg PO Q12H Patient Comments: pt takes 2 caps in am and 1 caps at hs sertraline 100 mg tablet 100 mg PO DAILY ondansetron 4 mg tablet,disintegrating 4 mg PO Q6H PRN (Reason: nausea and vomiting) Qty: 20 0RF hydrocodone-acetaminophen 5-325 mg tablet 1 tab PO Q6H PRN (Reason: pain) 2 Days Qty: 8 0RF Primary Care Provider: Velia Archuleta Referrals: Velia Archuleta MD [Primary Care Provider, Internal Medicine] - 5-7 Days Print Language: Icelandic Disposition Disposition: Home, Self Care
--- NOTE | 2025-02-25 04:04 | RAD_ITS ---
PROCEDURE: CHEST PA AND LATERAL 02/25/2025 REASON FOR EXAM: CHEST PAIN TECHNIQUE: Procedure Code: RADCXR Modality: DX Procedure: CHEST PA AND LATERAL COMPARISON: 12/09/2024 FINDINGS: Hardware: EKG leads overlie the chest Heart: Stable cardiomegaly. Mediastinum: The mediastinal contour is stable. Lungs: Chronic interstitial changes in both lung gagnon with stable platelike atelectasis in the mid lung gagnon. No acute process or significant interval change Bones: Degenerative bony change RAD/Chest PA and Lateral IMPRESSION: No interval change Reading Location: [id number]
[2025-02-25 04:20] LABS: Hematocrit 29.7 % (37-47); Hemoglobin 8.8 g/dL (12.0-15.0); Immature Granulocytes Count 0.040 X10^3/uL (0.0-0.0); Mean Corp Hgb Conc 29.6 g/dL (32-36); Mean Corpuscular Volume 95.5 fL (81-99); Mean Platelet Vol. 11.8 fl (6.2-12.0); NRBC Flagged by Analyzer 0 % (0-5); POSITIVE COUNT YES; POSITIVE DIFFERENTIAL YES; Platelet Count 93 K/mm3 (150-450); RBC Distribution Width CV 18.2 % (11.6-14.6); RBC Distribution Width SD 62.5 fl (35.1-43.9); Red Blood Count 3.11 M/mm3 (4.2-5.4); White Blood Count 3.1 K/mm3 (4.4-11.0)
[2025-02-25 04:39] LABS: Differential Indicated SCAN CRITERIA MET
[2025-02-25 05:16] LABS: BUN 28 mg/dL (4-19); BUN/Creat Ratio 5.2 RATIO (10-20); Calcium,Total 10.0 mg/dL (7.6-11.0); Estimated Creatinine Clearance 12.07 ml/min (50-250); Glucose 114 mg/dL (70-99)
[2025-02-25 05:33] LABS: Anion Gap 13 (7-18); Carbon Dioxide 28.1 mmol/L (20.0-29.0); Chloride 97 mmol/L (96-106); Differential Comment SCANNED; Potassium 4.7 mmol/L (3.5-5.1)
[2025-02-25 05:36] LABS: Troponin T High Sensitivity 134 ng/L (<=14)
[2025-02-25 06:46] LABS: Troponin T High Sens 2 HR 125 ng/L (<=14)
== END 2025-02-25 07:54 | disposition home or self-care (01) ==
PROVIDERS: Emergency Provider Emergency Medicine; PCP Internal Medicine; Visit Provider Emergency Medicine
DX: R07.9 Chest pain, unspecified (principal); N18.5 Chronic kidney disease, stage 5; I12.0 Hypertensive chronic kidney disease with stage 5 chronic kidney disease or end stage renal disease; Z94.4 Liver transplant status; E11.22 Type 2 diabetes mellitus with diabetic chronic kidney disease; D63.1 Anemia in chronic kidney disease; Z99.2 Dependence on renal dialysis; Z79.899 Other long term (current) drug therapy
CPT/HCPCS: 71046; 80048; 84484; 85025; 93005; 96374; 99285; A4216